=== PATIENT | male | born 1960 | race Hispanic/Latino ===

== ENCOUNTER 2017-06-02 17:49 | Inpatient (IN) | payer OTHER ==
--- NOTE | 2017-06-02 18:05 | Emergency Department Report ---
History of Present Illness - General Stated Complaint: OVERDOSE Time Seen by Provider: 06/02/17 17:59 Source: patient, family, EMS Mode of arrival: Stretcher Limitations: No Limitations - History of Present Illness Initial Comments: Patient is a 56-year-old male brought in by EMS for accidental overdose with Percocets. Patient at this is A&OX3. Patient is status post Narcan by EMS. Patient states she's been having a lot of chest pain recently and was taking his Percocets to relieve his chest pain and abdominal pain. Patient has multiple vascular complications.. Patient states she was not trying to kill himself. Patient's family called EMS due to the decreased responsiveness. Full report given by EMS. Discussed with patient's family as well. Patient denies depression or suicidal ideations or homicidal ideations. Patient's family stated he had some seizure-like activity during his decreased responsiveness. Patient states he only took one Percocet today and is unsure why he went unresponsive. MD Complaint: accidental overdose -: Sudden Intent: want to go to sleep How Overdose Was Discovered: called family/friend, family/friend present, called 911 Context: Accidental Overdose: uncertain what happened Associated Symptoms: abdominal pain Treatments Prior to Arrival: oxygen, narcan - Related Data Home Medications Medication Instructions Recorded Confirmed Last Taken Percocet 10/325 mg 10 mg PO 5XD 06/02/17 06/02/17 Unknown Allergies Allergy/AdvReac Type Severity Reaction Status Date / Time No Known Allergies Allergy Verified 06/02/17 20:53 ED Review of Systems ROS: Stated complaint: OVERDOSE Other details as noted in HPI Constitutional: no symptoms reported, see HPI Eyes: as per HPI ENT: as per HPI Respiratory: no symptoms reported, see HPI Cardiovascular: as per HPI, chest pain Endocrine: no symptoms reported Gastrointestinal: as per HPI, abdominal pain Genitourinary: as per HPI Musculoskeletal: as per HPI Skin: as per HPI Neurological: as per HPI Psychiatric: as per HPI Hematological/Lymphatic: as per HPI ED Past Medical Hx - Past Medical History Hx Hypertension: Yes Hx GERD: Yes Additional medical history: Severe PAD of bilateral legs. Status post vascular surgery for for abdominal bypass to legs. Hernia - Medications Home Medications: Home Medications Medication Instructions Recorded Confirmed Last Taken Type Percocet 10/325 mg 10 mg PO 5XD 11/12/17 11/12/17 Unknown History ED Physical Exam - General General appearance: alert, in no apparent distress - Head Head exam: Present: atraumatic, normocephalic - Eye Eye exam: Present: normal appearance - ENT ENT exam: Present: mucous membranes dry - Neck Neck exam: Present: normal inspection - Respiratory Respiratory exam: Present: normal lung sounds bilaterally. Absent: respiratory distress - Cardiovascular Cardiovascular Exam: Present: regular rate, normal rhythm. Absent: systolic murmur, diastolic murmur, rubs, gallop - GI/Abdominal GI/Abdominal exam: Present: soft, normal bowel sounds, hernia (umbilical hernia noted. Umbilical hernia completely reducible and both supraumbilical hernia are completely reducible. No tenderness noted around any of the hernias), other (midline abdominal scar noted) - Rectal Rectal exam: Present: deferred - Extremities Exam Extremities exam: Present: normal inspection - Back Exam Back exam: Present: normal inspection - Neurological Exam Neurological exam: Present: alert, oriented X3 - Psychiatric Psychiatric exam: Present: normal affect, normal mood - Skin Skin exam: Present: warm, dry, intact, normal color. Absent: rash ED Course Vital Signs 06/02/17 06/02/17 06/02/17 17:50 17:56 18:00 Temperature 98.4 F Pulse Rate 119 H 113 H 105 H Respiratory 18 18 23 Rate Blood Pressure 139/103 144/88 O2 Sat by Pulse 90 92 91 Oximetry 06/02/17 06/02/17 18:30 18:31 Temperature Pulse Rate 107 H Respiratory 18 13 Rate Blood Pressure 139/103 O2 Sat by Pulse 96 93 Oximetry ED Medical Decision Making - Lab Data Result diagrams: 06/02/17 19:54 06/02/17 19:54 - EKG Data -: EKG Interpreted by Wy EKG shows normal: sinus rhythm Rate: tachycardia - EKG Data Interpretation: no acute changes, normal EKG - Medical Decision Making 6-year-old male who came for a possible accidental overdose and decreased level of consciousness. Patient is back to normal level of consciousness after Narcan. Hospitalist consulted for admission. Gen. service consult and also for small bowel obstruction. Hospitalist agreed to admit patient. - Differential Diagnosis od, cp, abd pain. sbo Critical care attestation.: If time is entered above; I have spent that time in minutes in the direct care of this critically ill patient, excluding procedure time. ED Disposition Clinical Impression: Abdominal pain, Chest pain, Accidental overdose, Seizure-like activity, SBO ( small bowel obstruction) Disposition: DC-09 OP ADMIT IP TO THIS HOSP Is pt being admited?: Yes Does the pt Need Aspirin: No Condition: Critical Time of Disposition: 21:38
[2017-06-02 18:59] LABS: Creatine Kinase MB 1.4 ng/mL (0.0-4.0)
[2017-06-02 19:00] LABS: Creatine Kinase 39 units/L (55-170)
[2017-06-02 20:11] LABS: Basophils % (Auto) 0.4 % (0.0-1.8); Eosinophils % (Auto) 1.2 % (0.0-4.3); Hematocrit 48.8 % (35.5-45.6); Mean Corpuscular HGB Conc 33 % (32-34); Mean Corpuscular Hemoglobin 29 pg (28-32); Mean Corpuscular Volume 90 fl (84-94); Platelet Count 393 K/mm3 (140-440); Red Blood Count 5.44 M/mm3 (3.65-5.03); Red Cell Distribution Width 14.7 % (13.2-15.2); White Blood Count 18.9 K/mm3 (4.5-11.0)
--- NOTE | 2017-06-02 20:23 | Cat Scan Report ---
FINAL REPORT PROCEDURE: CT HEAD/BRAIN WO CON TECHNIQUE: Computerized tomography of the head was performed without contrast material. HISTORY: od, ams, poss sz COMPARISON: No prior studies are available for comparison. FINDINGS: Skull and scalp: Normal. Paranasal sinuses: Normal. Ventricles and subarachnoid spaces: Normal. Cerebrum: No evidence of hemorrhage, acute infarction or mass . Cerebellum and brainstem: No evidence of hemorrhage, acute infarction or mass. Vasculature: Normal. Comments: None. IMPRESSION: Normal Examination
[2017-06-02 20:26] LABS: Alanine Aminotransferase 25 units/L (7-56); Albumin/Globulin Ratio 1.2 %; Alkaline Phosphatase 74 units/L (35-129); Anion Gap 20 mmol/L; BUN/Creatinine Ratio 10; Bilirubin,Total < 0.20 mg/dL (0.1-1.2); Blood Urea Nitrogen 9 mg/dL (9-20); Calcium 8.7 mg/dL (8.4-10.2); Carbon Dioxide 26 mmol/L (22-30); Chloride 98.8 mmol/L (98-107); Glucose 90 mg/dL (75-100); Potassium 4.1 mmol/L (3.6-5.0); Sodium 141 mmol/L (137-145); Total Protein 7.4 g/dL (6.3-8.2)
--- NOTE | 2017-06-02 20:39 | Cat Scan Report ---
FINAL REPORT PROCEDURE: CT ABDOMEN PELVIS WO CON TECHNIQUE: Computerized axial tomography of the abdomen and pelvis was performed without intravenous contrast. This study is performed without intravascular contrast material and its sensitivity for abdominal and pelvic pathology, including neoplasms, inflammation, abscess, free fluid, thrombosis, arterial dissection and infarction, is reduced compared with a contrast enhanced study. HISTORY: abd pain COMPARISON: No prior studies are available for comparison. FINDINGS: Liverdemonstrates a cystic lesion measuring 0.8 x 1.0 centimeters located in segment 4. Spleen,. Spleen, and bilateral kidneys demonstrate normal density. There are no renal calculi or hydronephrosis. Aorta is of normal caliber. There is a aorto bi-iliac graft. No free fluid or free air is identified. Gallbladder demonstrates 2 calculi measuring 1.9 x 1.5 centimeters and smaller measuring 1.9 x 1.7 centimeters. Bilateral adrenal glands demonstrate mild degree of nodular thickening. Multiple ventral hernias are identified some of them containing fat, one of them containing a portion of the transverse colonic wall. Also, a complex multi compartmental midline supraumbilical ventral hernia is noted containing multiple loops of small bowel with small bowel obstruction. Afferent small-bowel loops demonstrate moderate degree dilatation and efferent small-bowel loops are decompressed. Moderate amount of residual stool is noted in the colon and rectum. Appendix is normal. IMPRESSION: Multiple ventral hernias are noted. A complex supraumbilical ventral hernia is noted containing multiple loops of small bowel. One of the compartments is causing small bowel obstruction. Bilateral adrenal glands demonstrate mild degree nodular thickening. A small cyst is noted in the left lobe liver which cannot be further evaluated on this noncontrast study.. Cholelithiasis..
[2017-06-02] MEDS: ZOSYN/NS 3.375GM/50ML 3.375 GM/50 ML BAG IV SCH (21:00)
--- NOTE | 2017-06-02 22:45 | History and Physical Report ---
History of Present Illness Date of examination: 06/02/17 History of present illness: 55-year-old man with a history of peripheral vascular disease, hypertension, GERD comes emergency room with complaint of finding him unresponsive, Narcan was given with good results. The son stated that the patient had Seizure-like activity. Patient stated he only took 1 Percocet today. Also complaining that his hernia and periumbilical area is hurting. He describes a sharp pain, constant, intensity5/10, no radiation, Ezekiel identified less than relieving factors. He was hospitalized a month ago for small bowel obstruction. Also complaining of chest pain, in the epigastric area, sharp, intermittent in nature lasting for 4 minutes, no radiation, intensity 4/10. Admits to diaphoresis, palpitation and shortness of breath. He had a stress test one month ago Review Of Systems: Constitutional: no weight loss Ears, eyes, nose, mouth and throat: no nasal congestion, no nasal discharge, no sinus pressure, blurry vision, diplopia Neck: No neck pain or rigidity. Cardiovascular:no orthopnea Respiratory: No cough Gastrointestinal: no hematochezia Genitourinary : no dysuria, frequency , hematuria Musculoskeletal: no muscle ache Integumentary: no rash, no pruritis Neurological: no parathesias, focal weakness Endocrine: no cold or heat intolerance, no polyuria or polydipsia Hematologic/Lymphatic: no easy bruising, no easy bleeding, no gland swelling Allergic/Immunologic: no urticaria, no angioedema. PAST MEDICAL HISTORY:peripheral vascular disease, hypertension, GERD PAST SURGICAL HISTORY: Hernia repair, bypass on legs FAILY HISTORY:Hypertension SOCIAL HISTORY: Denies alcohol, tobacco, drugs Medications and Allergies Allergies Allergy/AdvReac Type Severity Reaction Status Date / Time No Known Allergies Allergy Verified 06/02/17 20:53 Home Medications Medication Instructions Recorded Confirmed Last Taken Type Percocet 10/325 mg 10 mg PO 5XD 06/02/17 06/02/17 Unknown History Dicyclomine [Bentyl] 10 mg PO TID PRN #15 capsule 06/05/17 Unknown Rx Pantoprazole [Protonix] 40 mg PO QDAY #30 tablet 06/05/17 Unknown Rx Active Meds: Active Medications Piperacillin Sod/Tazobactam Sod (Zosyn/Ns 3.375gm/50ml) 3.375 gm in 50 mls @ 100 mls/hr IV Q6H [facility] Last Admin: 06/02/17 21:00 Dose: 100 mls/hr Exam - Physical Exam Narrative exam: Gen. appearance: Patient lying in bed in no acute distress HEENT: Normocephalic/atraumatic, pupils equal round reactive to light, extra alkaline movement intact, no scleral icterus, no JVD or thyromegaly or nodule, neck is supple, mucous membrane moist, no erythema or exudate Heart: S1-S2, regular rate and rhythm Lungs: Clear to auscultation bilateral breathing comfortable Abdomen: Positive bowel sounds, nontender, nondistended, no organomegaly Extremities: No edema, cyanosis, clubbing Neuro:: Oriented 3 , cranial nerves II-12 intact, speech, motor intact Skin: No rash, nodules, warm dry - Constitutional Vitals: Temp Pulse Resp BP Pulse Ox 98.4 F 107 H 13 139/103 93 06/02/17 17:56 06/02/17 18:31 06/02/17 18:31 06/02/17 18:31 06/02/17 18:31 Results - Labs CBC & Chem 7: 06/04/17 04:57 06/04/17 04:57 Labs: Abnormal lab results 06/02/17 06/02/17 06/02/17 Range/Units 18:22 18:22 19:37 WBC (4.5-11.0) K/mm3 RBC (3.65-5.03) M/mm3 Hgb (11.8-15.2) gm/dl Hct (35.5-45.6) % [place] % (Auto) (0.0-7.3) % [place] # (0.0-0.8) K/mm3 Seg Neutrophils % (40.0-70.0) % Seg Neutrophils # (1.8-7.7) K/mm3 Lactic Acid 2.30 H* (0.7-2.0) mmol/L Total Creatine Kinase 39 L (55-170) units/L Salicylates < 0.3 L (2.8-20.0) mg/dL 06/02/17 Range/Units 19:54 WBC 18.9 H (4.5-11.0) K/mm3 RBC 5.44 H (3.65-5.03) M/mm3 Hgb 16.0 H (11.8-15.2) gm/dl Hct 48.8 H (35.5-45.6) % [place] % (Auto) 8.1 H (0.0-7.3) % [place] # 1.5 H (0.0-0.8) K/mm3 Seg Neutrophils % 74.4 H (40.0-70.0) % Seg Neutrophils # 14.1 H (1.8-7.7) K/mm3 Lactic Acid (0.7-2.0) mmol/L Total Creatine Kinase (55-170) units/L Salicylates (2.8-20.0) mg/dL - Imaging and Cardiology CT scan - abdomen: report reviewed CT Scan - head: report reviewed CT scan - pelvis: report reviewed Assessment and Plan Assessment Small bowel obstruction Chest pain Possible seizure SIRS Unintentional overdose Hypertension Peripheral vascular disease GERD Plan Admit to medicine bowel rest, IV fluid, consult surgery The patient refused NG tube Check cardiac enzymes, consult cardiology Ativan as needed for seizure activity, consult neurology Continue appropriate outpatient medication Start emperic Zosyn, follow cultures DVT prophylaxis
[2017-06-02 22:52] LABS: Urine Drugs of Abuse Note Disclamer
[2017-06-02 23:05] LABS: Bacteria,Urine 1+ /HPF (Negative); Bilirubin,Urine NEG (Negative); Blood,Urine NEG (Negative); Ketones,Urine NEG (Negative); Leukocyte Esterase,Urine NEG (Negative); Mucus,Urine FEW /HPF; Nitrite,Urine NEG (Negative); Urobilinogen,Urine < 2.0 mg/dL (<2.0)
[2017-06-02] MEDS ORDERED: ZOFRAN IV PRN (23:26)
[2017-06-02] MEDS ORDERED: TYLENOL PR PRN (23:26)
[2017-06-02] MEDS ORDERED: ATIVAN IV PRN (23:30)
[2017-06-03 00:53] LABS: Creatine Kinase MB 2.6 ng/mL (0.0-4.0)
[2017-06-03] MEDS: DILAUDID IV PRN ×5 (00:57→20:00)
[2017-06-03] MEDS: NACL 0.45% 1000 ML 1,000 ML IV SCH ×2 (01:06→21:24)
[2017-06-03] MEDS: ZOSYN/NS 3.375GM/50ML 3.375 GM/50 ML BAG IV SCH ×4 (03:37→21:24)
[2017-06-03 03:46] LABS: Basophils % (Auto) 0.3 % (0.0-1.8); Eosinophils % (Auto) 0.6 % (0.0-4.3); Hematocrit 45.6 % (35.5-45.6); Hemoglobin 15.2 gm/dl (11.8-15.2); Mean Corpuscular HGB Conc 33 % (32-34); Mean Corpuscular Hemoglobin 30 pg (28-32); Mean Corpuscular Volume 89 fl (84-94); Platelet Count 330 K/mm3 (140-440); Red Blood Count 5.14 M/mm3 (3.65-5.03); Red Cell Distribution Width 14.5 % (13.2-15.2); White Blood Count 19.8 K/mm3 (4.5-11.0)
[2017-06-03 03:58] LABS: Anion Gap 25 mmol/L; BUN/Creatinine Ratio 13; Blood Urea Nitrogen 8 mg/dL (9-20); Calcium 8.7 mg/dL (8.4-10.2); Carbon Dioxide 21 mmol/L (22-30); Chloride 96.8 mmol/L (98-107); Glucose 60 mg/dL (75-100); Potassium 4.6 mmol/L (3.6-5.0); Sodium 138 mmol/L (137-145)
--- NOTE | 2017-06-03 08:13 | Progress Note ---
Assessment and Plan Assessment and plan: --Atypical chest pain; improved Continue current management, cardiology evaluation --Possible small bowel obstruction; nothing by mouth status Surgery evaluation requested, if cleared may start clear liquids and advance as tolerated --History of possible seizure episode; no new episodes since admission Seizure precautions, neurology evaluation and recommendations, EEG --SIRS; follow cultures, empiric antibiotics and supportive care --Urinary tract infection by UA; continue Zosyn, follow cultures --Lactic acidosis; probably secondary to UTI closely monitor --Elevated d-dimer /chest pain; negative for PE --Peripheral vascular disease --gastro esophageal reflux disease; Protonix --Chronic pain syndrome; patient needs to see pain management --Hypertension; well controlled --DVT prophylaxis; Lovenox Closely monitor the patient and adjust management as needed Consults and recommendations noted she did Plan of care discussed with the patient,his at the bedside as well as his nurse. History Interval history: Since seen and examined medical records reviewed Since slightly better, asking for food Awaiting surgical evaluation Denies any chest pain or shortness of breath Vital signs reviewed Hospitalist Physical - Constitutional Vitals: Temp Pulse Resp BP Pulse Ox 98.1 F 91 H 22 137/77 93 06/03/17 00:59 06/03/17 00:59 06/03/17 00:59 06/03/17 00:59 06/03/17 00:59 General appearance: Present: no acute distress, well-nourished, obese - EENT Eyes: Present: PERRL, EOM intact - Neck Neck: Present: supple, normal ROM - Respiratory Respiratory effort: normal Respiratory: bilateral: diminished, negative: rales, rhonchi, wheezing - Cardiovascular Rhythm: regular Heart Sounds: Present: S1 & S2 - Extremities Extremities: no ischemia, No edema - Abdominal General gastrointestinal: soft, non-tender, non-distended, normal bowel sounds, other (umbilical hernia, old surgical scar intact) - Integumentary Integumentary: Present: clear, warm - Psychiatric Psychiatric: appropriate mood/affect, cooperative - Neurologic Neurologic: CNII-XII intact, moves all extremities Results - Labs CBC & Chem 7: 06/03/17 03:12 06/03/17 03:12 Labs: Laboratory Last Values WBC 19.8 K/mm3 (4.5-11.0) H 06/03/17 03:12 RBC 5.14 M/mm3 (3.65-5.03) H 06/03/17 03:12 Hgb 15.2 gm/dl (11.8-15.2) 06/03/17 03:12 Hct 45.6 % (35.5-45.6) 06/03/17 03:12 MCV 89 fl (84-94) 06/03/17 03:12 MCH 30 pg (28-32) 06/03/17 03:12 MCHC 33 % (32-34) 06/03/17 03:12 RDW 14.5 % (13.2-15.2) 06/03/17 03:12 Plt Count 330 K/mm3 (140-440) 06/03/17 03:12 Lymph % (Auto) 15.0 % (13.4-35.0) 06/03/17 03:12 [place] % (Auto) 6.4 % (0.0-7.3) 06/03/17 03:12 Eos % (Auto) 0.6 % (0.0-4.3) 06/03/17 03:12 Baso % (Auto) 0.3 % (0.0-1.8) 06/03/17 03:12 Lymph # 3.0 K/mm3 (1.2-5.4) 06/03/17 03:12 [place] # 1.3 K/mm3 (0.0-0.8) H 06/03/17 03:12 Eos # 0.1 K/mm3 (0.0-0.4) 06/03/17 03:12 Baso # 0.1 K/mm3 (0.0-0.1) 06/03/17 03:12 Seg Neutrophils % 77.7 % (40.0-70.0) H 06/03/17 03:12 Seg Neutrophils # 15.4 K/mm3 (1.8-7.7) H 06/03/17 03:12 D-Dimer 455.38 ng/mlDDU (0-234) H 06/03/17 07:07 Sodium 138 mmol/L (137-145) 06/03/17 03:12 Potassium 4.6 mmol/L (3.6-5.0) 06/03/17 03:12 Chloride 96.8 mmol/L (98-107) L 06/03/17 03:12 Carbon Dioxide 21 mmol/L (22-30) L 06/03/17 03:12 Anion Gap 25 mmol/L 06/03/17 03:12 BUN 8 mg/dL (9-20) L 06/03/17 03:12 Creatinine 0.6 mg/dL (0.8-1.5) L 06/03/17 03:12 Estimated GFR > 60 ml/min 06/03/17 03:12 BUN/Creatinine Ratio 13 % 06/03/17 03:12 Glucose 60 mg/dL (75-100) L 06/03/17 03:12 Lactic Acid 2.30 mmol/L (0.7-2.0) H* 06/02/17 19:37 Calcium 8.7 mg/dL (8.4-10.2) 06/03/17 03:12 Total Bilirubin < 0.20 mg/dL (0.1-1.2) 06/02/17 19:54 AST 18 units/L (5-40) 06/02/17 19:54 ALT 25 units/L (7-56) 06/02/17 19:54 Alkaline Phosphatase 74 units/L (35-129) 06/02/17 19:54 Total Creatine Kinase 365 units/L (55-170) H 06/02/17 23:54 CK-MB (CK-2) 2.6 ng/mL (0.0-4.0) 06/02/17 23:54 CK-MB (CK-2) Rel Index 0.7 (0-4) 06/02/17 23:54 Troponin T < 0.010 ng/mL (0.00-0.029) 06/03/17 04:54 Total Protein 7.4 g/dL (6.3-8.2) 06/02/17 19:54 Albumin 4.0 g/dL (3.9-5) 06/02/17 19:54 Albumin/Globulin Ratio 1.2 % 06/02/17 19:54 Urine Color Yellow (Yellow) 06/02/17 22:47 Urine Turbidity Clear (Clear) 06/02/17 22:47 Urine pH 5.0 (5.0-7.0) 06/02/17 22:47 Ur Specific [place] 1.016 (1.003-1.030) 06/02/17 22:47 Urine Protein 30 mg/dl mg/dL (Negative) 06/02/17 22:47 Urine Glucose (UA) Neg mg/dL (Negative) 06/02/17 22:47 Urine Ketones Neg mg/dL (Negative) 06/02/17 22:47 Urine Blood Neg (Negative) 06/02/17 22:47 Urine Nitrite Neg (Negative) 06/02/17 22:47 Urine Bilirubin Neg (Negative) 06/02/17 22:47 Urine Urobilinogen < 2.0 mg/dL (<2.0) 06/02/17 22:47 Ur Leukocyte Esterase Neg (Negative) 06/02/17 22:47 Urine WBC (Auto) 2.0 /HPF (0.0-6.0) 06/02/17 22:47 Urine RBC (Auto) 3.0 /HPF (0.0-6.0) 06/02/17 22:47 Urine Bacteria (Auto) 1+ /HPF (Negative) 06/02/17 22:47 Urine Mucus Few /HPF 06/02/17 22:47 Salicylates < 0.3 mg/dL (2.8-20.0) L 06/02/17 18:22 Urine Opiates Screen Presumptive negative 06/02/17 22:47 Urine Methadone Screen Presumptive negative 06/02/17 22:47 Acetaminophen < 15.0 ug/mL (10.0-30.0) 06/02/17 18:22 Ur Barbiturates Screen Presumptive negative 06/02/17 22:47 Ur Phencyclidine Scrn Presumptive negative 06/02/17 22:47 Ur Amphetamines Screen Presumptive negative 06/02/17 22:47 U Benzodiazepines Scrn Presumptive negative 06/02/17 22:47 Urine Cocaine Screen Presumptive negative 06/02/17 22:47 U Marijuana (THC) Screen Presumptive negative 06/02/17 22:47 Drugs of Abuse Note Disclamer 06/02/17 22:47 Plasma/Serum Alcohol < 0.01 gm% (0-0.07) 06/02/17 18:22
[2017-06-03] MEDS: LOVENOX SUB-Q SCH (09:02)
[2017-06-03] MEDS ORDERED: LOVENOX SUB-Q SCH (10:00)
[2017-06-03] MEDS ORDERED: Fluarix Quad 2017-2018(36 MOS+ IM ONE (12:00)
--- NOTE | 2017-06-03 12:52 | Progress Note ---
Assessment and Plan Called to see pt to r/o sbo. History of Present Illness Date of examination: 06/02/17 History of present illness: 55-year-old man with a history of peripheral vascular disease, hypertension, GERD comes emergency room with complaint of finding him unresponsive, Narcan was given with good results. The size state that the patient had Seizure-like activity. Patient stated he only took 1 Percocet today. Also complaining that his hernia and periumbilical area is hurting. He describes a sharp pain, constant, intensity5/10, no radiation, Ezekiel identified less than relieving factors. He was hospitalized a month ago for small bowel obstruction. Also complaining of chest pain, in the epigastric area, sharp, intermittent in nature lasting for 4 minutes, no radiation, intensity 4/10. Admits to diaphoresis, palpitation and shortness of breath. He had a stress test one month ago Review Of Systems: Constitutional: no weight loss Ears, eyes, nose, mouth and throat: no nasal congestion, no nasal discharge, no sinus pressure, blurry vision, diplopia Neck: No neck pain or rigidity. Cardiovascular:no orthopnea Respiratory: No cough Gastrointestinal: no hematochezia Genitourinary : no dysuria, frequency , hematuria Musculoskeletal: no muscle ache Integumentary: no rash, no pruritis Neurological: no parathesias, focal weakness Endocrine: no cold or heat intolerance, no polyuria or polydipsia Hematologic/Lymphatic: no easy bruising, no easy bleeding, no gland swelling Allergic/Immunologic: no urticaria, no angioedema. PAST MEDICAL HISTORY:peripheral vascular disease, hypertension, GERD PAST SURGICAL HISTORY: Hernia repair, bypass on legs FAILY HISTORY:Hypertension SOCIAL HISTORY: Denies alcohol, tobacco, drugs Pt feeling well. Awake, alert, no complaints. hungry. +flatus and BM Abd - obese, soft. reducible, non tender ventral hernia. + BS CT reviewed - no evidence of sbo clinically stable rec: abd binder may begin non carbonated cl liq. advance diet in am as vinny will follow prn Selected Entries 06/03/17 06/03/17 00:59 06:06 Temperature 98.1 F Pulse Rate 91 H Respiratory 18 Rate Blood Pressure 137/77 Laboratory Tests 06/03/17 06/03/17 03:12 03:12 WBC 19.8 H Hgb 15.2 Hct 45.6 Sodium 138 Potassium 4.6 Chloride 96.8 L Carbon Dioxide 21 L BUN 8 L Creatinine 0.6 L Objective Vital Signs - 12hr 06/03/17 06/03/17 06/03/17 00:59 06:06 09:51 Temperature 98.1 F Pulse Rate 91 H Respiratory 22 18 Rate Blood Pressure 137/77 O2 Sat by Pulse 93 96 Oximetry - Labs 06/03/17 03:12 06/03/17 03:12 Diabetes panel 06/03/17 Range/Units 03:12 Sodium 138 (137-145) mmol/L Potassium 4.6 (3.6-5.0) mmol/L Chloride 96.8 L (98-107) mmol/L Carbon Dioxide 21 L (22-30) mmol/L BUN 8 L (9-20) mg/dL Creatinine 0.6 L (0.8-1.5) mg/dL Glucose 60 L (75-100) mg/dL Calcium 8.7 (8.4-10.2) mg/dL Calcium panel 06/03/17 Range/Units 03:12 Calcium 8.7 (8.4-10.2) mg/dL Pituitary panel 06/03/17 Range/Units 03:12 Sodium 138 (137-145) mmol/L Potassium 4.6 (3.6-5.0) mmol/L Chloride 96.8 L (98-107) mmol/L Carbon Dioxide 21 L (22-30) mmol/L BUN 8 L (9-20) mg/dL Creatinine 0.6 L (0.8-1.5) mg/dL Glucose 60 L (75-100) mg/dL Calcium 8.7 (8.4-10.2) mg/dL Adrenal panel 06/03/17 Range/Units 03:12 Sodium 138 (137-145) mmol/L Potassium 4.6 (3.6-5.0) mmol/L Chloride 96.8 L (98-107) mmol/L Carbon Dioxide 21 L (22-30) mmol/L BUN 8 L (9-20) mg/dL Creatinine 0.6 L (0.8-1.5) mg/dL Glucose 60 L (75-100) mg/dL Calcium 8.7 (8.4-10.2) mg/dL
--- NOTE | 2017-06-03 13:09 | Cat Scan Report ---
CT angiography of the chest with 3-D reconstructed images. History: Chest pain, elevated d-dimer. Findings: The concentration of the contrast bolus is suboptimal, but there is no evidence of pulmonary emboli. The lungs are clear. No pleural fluid is seen. There are mild emphysematous changes in the upper lobes. The mediastinum and hilar regions are unremarkable. An isolated subcentimeter hypodensity is seen in the left lobe of the liver. Multiple gallstones are noted. A midline ventral hernia is noted, incompletely imaged. Impression: 1. No evidence of pulmonary emboli with above-noted technical limitations. 2. Mild emphysematous changes. 3. Cholelithiasis. 4. Midline ventral hernia, incompletely imaged. 5. Subcentimeter nonspecific hepatic hypodensity . Evidence of hepatic steatosis is also noted.
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
[2017-06-03] MEDS ORDERED: DILAUDID IV PRN (15:00)
--- NOTE | 2017-06-03 19:12 | Consultation ---
History of Present Illness Consult date: 06/03/17 Consult reason: chest pain History of present illness: The patient is a 56-year-old man who was admitted to the hospital after he was found unresponsive at home. It is reported that the swiss type screw machine operator gave him 2 mg of Narcan, following which he regained complete consciousness and was alert and oriented. The patient is on chronic Percocet treatment, but denied intentional overdose. On presentation to the hospital, during review of systems he also reported chest pain. Cardiac consultation was requested for chest pain evaluation. Patient's chest pain is poorly characterized, nonexertional and has no associated symptoms. He states he has a history of peripheral vascular disease and previous aortofemoral bypass. He reports that he has had extensive ischemic cardiac workup including a cardiac catheterization done a year ago at [facility], which he states was negative for significant coronary disease. The records are not available for review of his coronary findings. ECG is normal sinus rhythm, normal ECG. Past History Past Medical History: PVD Medications and Allergies Allergies Allergy/AdvReac Type Severity Reaction Status Date / Time No Known Allergies Allergy Verified 06/02/17 20:53 Home Medications Medication Instructions Recorded Confirmed Last Taken Type Percocet 10/325 mg 10 mg PO 5XD 06/02/17 06/02/17 Unknown History Active Meds: Active Medications Acetaminophen (Tylenol) 650 mg [place] Q4H PRN PRN Reason: Pain MILD(1-3)/Fever >100.5/NELSON Enoxaparin Sodium (Lovenox) 40 mg SUB-Q QDAY@1000 [facility]ENCION Last Admin: 06/03/17 09:02 Dose: 40 mg Hydromorphone HCl (Dilaudid) 0.5 mg IV Q6H PRN PRN Reason: Pain , Severe (7-10) Piperacillin Sod/Tazobactam Sod (Zosyn/Ns 3.375gm/50ml) 3.375 gm in 50 mls @ 100 mls/hr IV Q6H [facility]ENCION Last Admin: 06/03/17 15:39 Dose: 100 mls/hr Sodium Chloride (Nacl 0.45% 1000 Ml) 1,000 mls @ 75 mls/hr IV DIRECT [facility]ENCION Last Admin: 06/03/17 01:06 Dose: 75 mls/hr Lorazepam (Ativan) 1 mg IV Q4H PRN PRN Reason: Seizures Ondansetron HCl (Zofran) 4 mg IV Q4H PRN PRN Reason: N/V unrelieved by Reglan Pantoprazole (Protonix) 40 mg PO QDAY [facility] Review of Systems Cardiovascular: chest pain, shortness of breath, no orthopnea, no palpitations, no rapid/irregular heart beat, no edema, no syncope, no lightheadedness Physical Examination Vital Signs Pulse Resp Pulse Ox 119 H 18 90 06/02/17 17:50 06/02/17 17:50 06/02/17 17:50 General appearance: no acute distress, obese HEENT: Positive: PERRL Neck: Positive: neck supple Cardiac: Positive: Reg Rate and Rhythm Lungs: Positive: Decreased Breath Sounds Neuro: Positive: Grossly Intact Abdomen: Positive: Soft Male genitourinary: Positive: deferred Skin: Positive: Clear Extremities: Absent: edema Results 06/03/17 03:12 06/03/17 03:12 Cardiac Enzymes 06/02/17 Range/Units 23:54 CK-MB (CK-2) 2.6 (0.0-4.0) ng/mL CBC 06/03/17 Range/Units 03:12 WBC 19.8 H (4.5-11.0) K/mm3 RBC 5.14 H (3.65-5.03) M/mm3 Hgb 15.2 (11.8-15.2) gm/dl Hct 45.6 (35.5-45.6) % Plt Count 330 (140-440) K/mm3 Lymph # 3.0 (1.2-5.4) K/mm3 [place] # 1.3 H (0.0-0.8) K/mm3 Eos # 0.1 (0.0-0.4) K/mm3 Baso # 0.1 (0.0-0.1) K/mm3 Comprehensive Metabolic Panel 06/03/17 Range/Units 03:12 Sodium 138 (137-145) mmol/L Potassium 4.6 (3.6-5.0) mmol/L Chloride 96.8 L (98-107) mmol/L Carbon Dioxide 21 L (22-30) mmol/L BUN 8 L (9-20) mg/dL Creatinine 0.6 L (0.8-1.5) mg/dL Glucose 60 L (75-100) mg/dL Calcium 8.7 (8.4-10.2) mg/dL EKG interpretations - Telemetry EKG Rhythm: Sinus Rhythm Assessment and Plan - Patient Problems (1) Chest pain Current Visit: Yes Status: Acute Qualifiers: Chest pain type: C Ischemic chest pain type: I Plan to address problem: The patient's chest pain is atypical, ECG is normal, and he reports prior negative extensive ischemic cardiac workup. We will request his cardiac catheterization results from [facility] for further review. Otherwise no immediate further ischemic workup is indicated for atypical chest pain.
[2017-06-04] MEDS: DILAUDID IV PRN ×4 (02:02→20:53)
[2017-06-04] MEDS: ZOSYN/NS 3.375GM/50ML 3.375 GM/50 ML BAG IV SCH ×4 (02:03→20:52)
--- NOTE | 2017-06-04 03:11 | Consultation ---
REASON FOR CONSULTATION: Rule out small-bowel obstruction. HISTORY OF PRESENT ILLNESS: The patient is a 56-year-old gentleman who presented to the Emergency Room, who was sleeping, who was brought into the Emergency Room after being found unresponsive. Narcan was given with good results. His workup, the patient underwent a CT of the abdomen, which was read as a possible partial small-bowel obstruction secondary to ventral hernia thus, the reason for my consultation. For other past medical and surgical history, please review the chart. PHYSICAL EXAMINATION: GENERAL: Examination this morning reveals the patient to be awake, alert, cooperative with no complaints. He is hungry and wants to eat. He passed flatus and has had a bowel movement. VITAL SIGNS: Stable, including a temperature of 98.1, blood pressure 137/77, pulse 91, respirations of 18. ABDOMEN: Examination of the abdomen reveals it to be obese, but soft and nontender. Long midline scar is noted presumably from previous vascular surgery. There is a ventral hernia noted, but this hernia is easily reducible and nontender. Bowel sounds are present. IMAGING STUDIES: A CT has also been reviewed, which again shows no real evidence of small-bowel obstruction. ASSESSMENT AND PLAN: 1. At this time is that of a 56-year-old gentleman with asymptomatic incisional hernia with no signs of obstruction at present. I would recommend an abdominal binder. The patient states he has an abdominal binder at home with left it at home. 2. Maybe be in non-carbonated clear liquid diet this morning and advance as tolerated in the morning. We will follow as needed. Thank you very much for consultation. JOB# [id number] FP/NTS
[2017-06-04 05:29] LABS: Basophils % (Auto) 0.8 % (0.0-1.8); Eosinophils % (Auto) 1.1 % (0.0-4.3); Hemoglobin 15.2 gm/dl (11.8-15.2); Mean Corpuscular HGB Conc 33 % (32-34); Mean Corpuscular Hemoglobin 29 pg (28-32); Mean Corpuscular Volume 89 fl (84-94); Platelet Count 340 K/mm3 (140-440); Red Blood Count 5.18 M/mm3 (3.65-5.03); Red Cell Distribution Width 14.4 % (13.2-15.2); White Blood Count 18.2 K/mm3 (4.5-11.0)
[2017-06-04 05:48] LABS: Anion Gap 18 mmol/L; BUN/Creatinine Ratio 8; Blood Urea Nitrogen 5 mg/dL (9-20); Calcium 8.6 mg/dL (8.4-10.2); Carbon Dioxide 24 mmol/L (22-30); Chloride 98.1 mmol/L (98-107); Glucose 100 mg/dL (75-100); Potassium 3.6 mmol/L (3.6-5.0); Sodium 136 mmol/L (137-145)
[2017-06-04] MEDS: PROTONIX PO SCH (09:05)
[2017-06-04] MEDS: LOVENOX SUB-Q SCH (09:05)
--- NOTE | 2017-06-04 12:04 | Progress Note ---
Subjective Date of service: 06/04/17 Principal diagnosis: altered awareness episode Interval history: NEUROLOGY PROGRESS NOTE: No repeat episodes of altered awareness. EEG today shows: 8 - 10 Hz background, no differentiated states of awareness, no focal abn, no epileptiform activity. IMP: Normal awake EEG. RECC: 1. Neuro work up complete. See no need for further neuro tests. 2. Call as needed. Unruly Mercer MD Objective - Vital Sign Vital Signs - 12hr 06/04/17 06/04/17 02:02 08:54 Respiratory 20 20 Rate - Laboratory Findings CBC and BMP: 06/04/17 04:57 06/04/17 04:57 Abnormal Lab Findings: Abnormal Labs 06/02/17 06/03/17 06/03/17 23:54 03:12 03:12 WBC 19.8 H RBC 5.14 H Hct [place] # 1.3 H Seg Neutrophils % 77.7 H Seg Neutrophils # 15.4 H D-Dimer Sodium Chloride 96.8 L Carbon Dioxide 21 L BUN 8 L Creatinine 0.6 L Glucose 60 L Total Creatine Kinase 365 H 06/03/17 06/04/17 06/04/17 07:07 04:57 04:57 WBC 18.2 H RBC 5.18 H Hct 46.0 H [place] # 1.2 H Seg Neutrophils % 74.4 H Seg Neutrophils # 13.6 H D-Dimer 455.38 H Sodium 136 L Chloride Carbon Dioxide BUN 5 L Creatinine 0.6 L Glucose Total Creatine Kinase
[2017-06-04] MEDS: NACL 0.45% 1000 ML 1,000 ML IV SCH (12:09)
--- NOTE | 2017-06-04 12:23 | Progress Note ---
Assessment and Plan - Patient Problems (1) Chest pain Current Visit: Yes Status: Acute Plan to address problem: chest pain is atypical ECG is normal pt reports prior negative extensive ischemic cardiac workup. We will request his cardiac catheterization results from [facility] for further review. Otherwise, conservative cardiac management. Subjective Date of service: 06/04/17 Principal diagnosis: altered awareness episode Interval history: Patient complains of abdominal pain. Objective Vital Signs Pulse Resp 06/04/17 08:54 20 06/04/17 02:02 20 06/03/17 23:00 100 H 06/03/17 20:00 20 06/03/17 15:00 86 06/03/17 13:52 18 06/03/17 13:45 18 - Physical Examination General: No Apparent Distress HEENT: Positive: PERRL Cardiac: Positive: Reg Rate and Rhythm Neuro: Positive: Grossly Intact Extremities: Absent: edema - Labs and Meds CBC 06/04/17 Range/Units 04:57 WBC 18.2 H (4.5-11.0) K/mm3 RBC 5.18 H (3.65-5.03) M/mm3 Hgb 15.2 (11.8-15.2) gm/dl Hct 46.0 H (35.5-45.6) % Plt Count 340 (140-440) K/mm3 Lymph # 3.1 (1.2-5.4) K/mm3 [place] # 1.2 H (0.0-0.8) K/mm3 Eos # 0.2 (0.0-0.4) K/mm3 Baso # 0.1 (0.0-0.1) K/mm3 Comprehensive Metabolic Panel 06/04/17 Range/Units 04:57 Sodium 136 L (137-145) mmol/L Potassium 3.6 D (3.6-5.0) mmol/L Chloride 98.1 (98-107) mmol/L Carbon Dioxide 24 (22-30) mmol/L BUN 5 L (9-20) mg/dL Creatinine 0.6 L (0.8-1.5) mg/dL Glucose 100 (75-100) mg/dL Calcium 8.6 (8.4-10.2) mg/dL
[2017-06-05] MEDS: NACL 0.45% 1000 ML 1,000 ML IV SCH (02:31)
[2017-06-05] MEDS: ZOSYN/NS 3.375GM/50ML 3.375 GM/50 ML BAG IV SCH ×2 (02:31→08:35)
[2017-06-05] MEDS: DILAUDID IV PRN ×2 (02:32→08:35)
--- NOTE | 2017-06-05 10:37 | Progress Note ---
Assessment and Plan Alteration of mental status -resolved Abdominal pain Leukocytosis Chest pain, atypical ECG is normal pt reports prior negative cardiac cath done at [facility] a year ago. CTA negative for PE Records from [facility] is pending. Conservative cardiac management. Subjective Date of service: 06/05/17 Principal diagnosis: altered awareness episode Interval history: No interval changes. Objective Vital Signs Temp Pulse Resp Resp BP Pulse Ox 06/05/17 08:36 79 06/05/17 08:31 95 06/05/17 04:06 97.1 F L 86 20 194/80 99 06/05/17 03:24 94 H 06/05/17 02:32 20 06/05/17 00:38 98.4 F 94 H 20 155/86 93 06/04/17 20:53 20 06/04/17 20:10 98.3 F 89 20 160/76 93 06/04/17 17:19 98.6 F 97 H 20 144/75 95 06/04/17 16:04 20 06/04/17 11:36 98.7 F 89 20 164/95 96 06/04/17 10:40 20 - Physical Examination General: No Apparent Distress HEENT: Positive: PERRL Cardiac: Positive: Reg Rate and Rhythm Lungs: Positive: Decreased Breath Sounds Neuro: Positive: Grossly Intact
[2017-06-05] MEDS: PROTONIX PO SCH (11:30)
[2017-06-05] MEDS: LOVENOX SUB-Q SCH (11:30)
[2017-06-05 12:31] VITALS: BP 99/63
--- NOTE | 2017-06-05 13:29 | Discharge Summary ---
Providers - Providers Date of Admission: 06/02/17 22:44 Date of discharge: 06/05/17 Attending physician: CHUCK OKEEFE 06/02/17 23:09 Consult to Physician [CONS] Routine Consulting Provider: TARAH GARIBAY Reason For Exam: sbo Place consult to:: Dr. Garibay Notified:: Answering Service Phone number called:: [phone] Was contact made?: Yes If yes, spoke with:: Dr. Garibay Time called:: 21:31 Comment:: Dr. Hargrove ( dr) spoke with Dr. Garibay 06/02/17 23:31 Consult to Physician [CONS] Routine Consulting Provider: BENEDICTO CORTEZ Reason For Exam: ?sz Notified:: attendance secretary pl call 06/02/17 23:34 Consult to Physician [CONS] Routine Consulting Provider: ALEN CORDOBA Reason For Exam: cp Notified:: attendance secretary pl call Primary care physician: MARINE DIESEL TECHNICIAN Hospitalization Reason for admission: altered level of consciousness/seizure like activity Condition: Stable Pertinent studies: CT head; normal study CTA chest; negative for PE CT abdomen and pelvis; multiple ventral hernias Hepato-steatosis EEG; normal study Hospital course: 55-year-old morbidly obese male patient with significant history of peripheral vascular disease hypertension GERD was admitted through emergency room with unresponsiveness and seizure like activity patient was initially evaluated admitted to the hospital symptomatically managed Patient also has abdominal pain, workup questionable small bowel obstruction, as well as chest pain Symptomatically managed evaluated by cardiology; patient's symptoms significantly improved, patient had a negative heart And [facility] one year ago, no further intervention cardiac-jc Evaluated by neurology for seizure; placed on seizure precautions, no antiseizure medications required; EEG within normal limits, neurology cleared, advised not to drive until cleared by primary care physician, Patient had chronic pain syndrome, advised to see pain management as outpatient for his pain needs Patient also has mild leukocytosis; urine consistent with UTI; received Zosyn for 4 days during the hospital stay Symptoms improved, Today he is comfortable with no new complaints, Vital signs are stable Physical examination prior to discharge is unremarkable Clear by all the specialists surgery, cardiology, neurology and follow up with them as outpatient as needed Patient is hemodynamically and clinically stable at discharge Discharge diagnosis; --Atypical noncardiac chest pain; possible costochondritis Negative Heart cath a year ago at [facility] --Possible small bowel obstruction; surgery has evaluated, no evidence of small bowel obstruction --History of possible seizure episode; workup negative, did not drive till cleared by PMD --SIRS; patient has no fever --Sepsis secondary to Urinary tract infection received 4 days of Zosyn --Lactic acidosis; probably secondary to UTI , improved --Elevated d-dimer; negative for PE --Peripheral vascular disease --gastro esophageal reflux disease; Protonix --Chronic pain syndrome; outpatient pain management --Hypertension; well controlled Disposition: DC- TO HOME OR SELFCARE Time spent for discharge: 33 min Core Measure Documentation - Palliative Care Palliative Care/ Comfort Measures: Not Applicable - Core Measures Any of the following diagnoses?: none Exam - Constitutional Vitals: Temp Pulse Resp BP Pulse Ox 98.7 F 79 20 99/63 97 06/05/17 12:30 06/05/17 08:36 06/05/17 12:30 06/05/17 12:30 06/05/17 12:30 General appearance: Present: no acute distress, well-nourished, obese - EENT Eyes: Present: PERRL, EOM intact - Neck Neck: Present: supple, normal ROM - Respiratory Respiratory effort: normal Respiratory: bilateral: diminished, negative: rales, rhonchi, wheezing - Cardiovascular Rhythm: regular Heart Sounds: Present: S1 & S2 - Extremities Extremities: no ischemia, No edema Peripheral Pulses: within normal limits - Abdominal General gastrointestinal: Present: soft, non-tender, non-distended, normal bowel sounds - Integumentary Integumentary: Present: clear, warm - Musculoskeletal Musculoskeletal: strength equal bilaterally - Psychiatric Psychiatric: appropriate mood/affect, cooperative - Neurologic Neurologic: CNII-XII intact, moves all extremities Plan Activity: no driving until cleared by PCP, other (seizure precautions) Diet: low salt Additional Instructions: Exercise as tolerated and weight reduction. If you have new episodes of seizures need to see the neurologist for further evaluation Follow up with: PRIMARY MD TAURUS [Primary Care Provider] - 3-5 Days TARAH GRAIBAY MD [Staff Physician] - 7 Days IGOR SCHMITT MD [Staff Physician] - 7 Days Forms: Discharge Signature Page Prescriptions: Dicyclomine [Bentyl] 10 mg PO TID PRN #15 capsule PRN Reason: Pain Pantoprazole [Protonix] 40 mg PO QDAY #30 tablet
--- NOTE | 2017-06-05 14:07 | Consultation ---
History of Present Illness Consult date: 06/05/17 History of present illness: patient seen and re-assessed post overdose- suspect percocet multidose the only medication that is responsive... he was traeting pain in the area of his old surgery with complications of hernia advise in future no percocet might consider another anaalgesic ie lomotil and ultram will follow up in office post discharge EEG did not show seizure activity spoke to at the bedside Past History Past Medical History: PVD Medications and Allergies Allergies Allergy/AdvReac Type Severity Reaction Status Date / Time No Known Allergies Allergy Verified 06/02/17 20:53 Home Medications Medication Instructions Recorded Confirmed Last Taken Type Percocet 10/325 mg 10 mg PO 5XD 06/02/17 06/02/17 Unknown History Dicyclomine [Bentyl] 10 mg PO TID PRN #15 capsule 06/05/17 Unknown Rx Pantoprazole [Protonix] 40 mg PO QDAY #30 tablet 06/05/17 Unknown Rx Active Meds: Active Medications Acetaminophen (Tylenol) 650 mg MA Q4H PRN PRN Reason: Pain MILD(1-3)/Fever >100.5/NELSON Enoxaparin Sodium (Lovenox) 40 mg SUB-Q QDAY@1000 [facility]ENCION Last Admin: 06/05/17 11:30 Dose: 40 mg Hydromorphone HCl (Dilaudid) 0.5 mg IV Q6H PRN PRN Reason: Pain , Severe (7-10) Last Admin: 06/05/17 08:35 Dose: 0.5 mg Sodium Chloride (Nacl 0.45% 1000 Ml) 1,000 mls @ 75 mls/hr IV [facility] Last Admin: 06/05/17 02:31 Dose: 75 mls/hr Lorazepam (Ativan) 1 mg IV Q4H PRN PRN Reason: Seizures Ondansetron HCl (Zofran) 4 mg IV Q4H PRN PRN Reason: N/V unrelieved by Reglan Pantoprazole (Protonix) 40 mg PO [facility]DAY [facility] Last Admin: 06/05/17 11:30 Dose: 40 mg Physical Examination - Vital Signs Vital Signs: Vital Signs Pulse Resp Pulse Ox 119 H 18 90 06/02/17 17:50 06/02/17 17:50 06/02/17 17:50 Results - Laboratory Findings CBC and BMP: 11/14/17 04:57 06/04/17 04:57 Abnormal Lab Findings: Abnormal Labs 06/02/17 06/03/17 06/03/17 23:54 03:12 03:12 WBC 19.8 H RBC 5.14 H Hct [place] # 1.3 H Seg Neutrophils % 77.7 H Seg Neutrophils # 15.4 H D-Dimer Sodium Chloride 96.8 L Carbon Dioxide 21 L BUN 8 L Creatinine 0.6 L Glucose 60 L Total Creatine Kinase 365 H 06/03/17 06/04/17 06/04/17 07:07 04:57 04:57 WBC 18.2 H RBC 5.18 H Hct 46.0 H [place] # 1.2 H Seg Neutrophils % 74.4 H Seg Neutrophils # 13.6 H D-Dimer 455.38 H Sodium 136 L Chloride Carbon Dioxide BUN 5 L Creatinine 0.6 L Glucose Total Creatine Kinase
--- NOTE | 2017-06-06 17:50 | Progress Note ---
Assessment and Plan Assessment and plan: --Atypical chest pain; improved Probably noncardiac, cardiology following --Possible small bowel obstruction; surgery has evaluated the patient No small bowel obstruction, clear liquids advance the diet as tolerated --History of possible seizure episode; no new episodes of seizure Seizure precautions, EEG, no need for antiepileptic medications, neurology following --SIRS; patient has no fever --Sepsis secondary to Urinary tract infection by UA; on Zosyn ,cultures negative to date --Lactic acidosis; probably secondary to UTI --Elevated d-dimer /chest pain; negative for PE --Peripheral vascular disease --gastro esophageal reflux disease; Protonix --Chronic pain syndrome; patient needs to see outpatient pain management --Hypertension; well controlled --DVT prophylaxis; Lovenox Closely monitor the patient and adjust management as needed Plan of care discussed with the patient,his at the bedside as well as his nurse. History Interval history: Patient seen and examined in his room medical records reviewed Patient feels slightly better no new episodes of seizures Complaints of back pain Vital signs reviewed Hospitalist Physical - Constitutional Vitals: Temp Pulse Resp BP Pulse Ox 98.7 F 79 20 99/63 97 06/05/17 12:30 06/05/17 08:36 06/05/17 12:30 06/05/17 12:30 06/05/17 12:30 General appearance: Present: no acute distress, well-nourished, obese - EENT Eyes: Present: PERRL, EOM intact - Neck Neck: Present: supple, normal ROM - Respiratory Respiratory effort: normal Respiratory: bilateral: diminished, negative: rales, rhonchi, wheezing - Cardiovascular Rhythm: regular Heart Sounds: Present: S1 & S2 - Extremities Extremities: no ischemia, No edema - Abdominal General gastrointestinal: soft, non-tender, non-distended, normal bowel sounds - Integumentary Integumentary: Present: clear, warm - Psychiatric Psychiatric: appropriate mood/affect, cooperative - Neurologic Neurologic: CNII-XII intact, moves all extremities Results - Labs CBC & Chem 7: 06/04/17 04:57 06/04/17 04:57 Labs: Laboratory Last Values WBC 18.2 K/mm3 (4.5-11.0) H 06/04/17 04:57 RBC 5.18 M/mm3 (3.65-5.03) H 06/04/17 04:57 Hgb 15.2 gm/dl (11.8-15.2) 06/04/17 04:57 Hct 46.0 % (35.5-45.6) H 06/04/17 04:57 MCV 89 fl (84-94) 06/04/17 04:57 MCH 29 pg (28-32) 06/04/17 04:57 MCHC 33 % (32-34) 06/04/17 04:57 RDW 14.4 % (13.2-15.2) 06/04/17 04:57 Plt Count 340 K/mm3 (140-440) 06/04/17 04:57 Lymph % (Auto) 17.1 % (13.4-35.0) 06/04/17 04:57 [place] % (Auto) 6.6 % (0.0-7.3) 06/04/17 04:57 Eos % (Auto) 1.1 % (0.0-4.3) 06/04/17 04:57 Baso % (Auto) 0.8 % (0.0-1.8) 06/04/17 04:57 Lymph # 3.1 K/mm3 (1.2-5.4) 06/04/17 04:57 [place] # 1.2 K/mm3 (0.0-0.8) H 06/04/17 04:57 Eos # 0.2 K/mm3 (0.0-0.4) 06/04/17 04:57 Baso # 0.1 K/mm3 (0.0-0.1) 06/04/17 04:57 Seg Neutrophils % 74.4 % (40.0-70.0) H 06/04/17 04:57 Seg Neutrophils # 13.6 K/mm3 (1.8-7.7) H 06/04/17 04:57 D-Dimer 455.38 ng/mlDDU (0-234) H 06/03/17 07:07 Sodium 136 mmol/L (137-145) L 06/04/17 04:57 Potassium 3.6 mmol/L (3.6-5.0) D 06/04/17 04:57 Chloride 98.1 mmol/L (98-107) 06/04/17 04:57 Carbon Dioxide 24 mmol/L (22-30) 06/04/17 04:57 Anion Gap 18 mmol/L 06/04/17 04:57 BUN 5 mg/dL (9-20) L 06/04/17 04:57 Creatinine 0.6 mg/dL (0.8-1.5) L 06/04/17 04:57 Estimated GFR > 60 ml/min 06/04/17 04:57 BUN/Creatinine Ratio 8 % 06/04/17 04:57 Glucose 100 mg/dL (75-100) 06/04/17 04:57 Lactic Acid 2.30 mmol/L (0.7-2.0) H* 06/02/17 19:37 Calcium 8.6 mg/dL (8.4-10.2) 06/04/17 04:57 Magnesium 1.80 mg/dL (1.7-2.3) 06/04/17 04:57 Total Bilirubin < 0.20 mg/dL (0.1-1.2) 06/02/17 19:54 AST 18 units/L (5-40) 06/02/17 19:54 ALT 25 units/L (7-56) 06/02/17 19:54 Alkaline Phosphatase 74 units/L (35-129) 06/02/17 19:54 Total Creatine Kinase 365 units/L (55-170) H 06/02/17 23:54 CK-MB (CK-2) 2.6 ng/mL (0.0-4.0) 06/02/17 23:54 CK-MB (CK-2) Rel Index 0.7 (0-4) 06/02/17 23:54 Troponin T < 0.010 ng/mL (0.00-0.029) 06/03/17 04:54 Total Protein 7.4 g/dL (6.3-8.2) 06/02/17 19:54 Albumin 4.0 g/dL (3.9-5) 06/02/17 19:54 Albumin/Globulin Ratio 1.2 % 06/02/17 19:54 Urine Color Yellow (Yellow) 06/02/17 22:47 Urine Turbidity Clear (Clear) 06/02/17 22:47 Urine pH 5.0 (5.0-7.0) 06/02/17 22:47 Ur Specific [place] 1.016 (1.003-1.030) 06/02/17 22:47 Urine Protein 30 mg/dl mg/dL (Negative) 06/02/17 22:47 Urine Glucose (UA) Neg mg/dL (Negative) 06/02/17 22:47 Urine Ketones Neg mg/dL (Negative) 06/02/17 22:47 Urine Blood Neg (Negative) 06/02/17 22:47 Urine Nitrite Neg (Negative) 06/02/17 22:47 Urine Bilirubin Neg (Negative) 06/02/17 22:47 Urine Urobilinogen < 2.0 mg/dL (<2.0) 06/02/17 22:47 Ur Leukocyte Esterase Neg (Negative) 06/02/17 22:47 Urine WBC (Auto) 2.0 /HPF (0.0-6.0) 06/02/17 22:47 Urine RBC (Auto) 3.0 /HPF (0.0-6.0) 06/02/17 22:47 Urine Bacteria (Auto) 1+ /HPF (Negative) 06/02/17 22:47 Urine Mucus Few /HPF 06/02/17 22:47 Salicylates < 0.3 mg/dL (2.8-20.0) L 06/02/17 18:22 Urine Opiates Screen Presumptive negative 06/02/17 22:47 Urine Methadone Screen Presumptive negative 06/02/17 22:47 Acetaminophen < 15.0 ug/mL (10.0-30.0) 06/02/17 18:22 Ur Barbiturates Screen Presumptive negative 06/02/17 22:47 Ur Phencyclidine Scrn Presumptive negative 06/02/17 22:47 Ur Amphetamines Screen Presumptive negative 06/02/17 22:47 U Benzodiazepines Scrn Presumptive negative 06/02/17 22:47 Urine Cocaine Screen Presumptive negative 06/02/17 22:47 U Marijuana (THC) Screen Presumptive negative 06/02/17 22:47 Drugs of Abuse Note Disclamer 06/02/17 22:47 Plasma/Serum Alcohol < 0.01 gm% (0-0.07) 06/02/17 18:22
== END 2017-06-05 14:54 | disposition home or self-care (01) | DRG 917 ==
LOC: ED 17:49 → 4A 22:44
PROVIDERS: ADMIT Internal Medicine; ATTEND Internal Medicine
PROC: 3E0234Z Introduction of Serum, Toxoid and Vaccine into Muscle, Percutaneous Approach (ICD-10-PCS; principal; 2017-06-03)
DX: T40.2X1A Poisoning by other opioids, accidental (unintentional), initial encounter (principal); A41.9 Sepsis, unspecified organism; K56.609 Unspecified intestinal obstruction, unspecified as to partial versus complete obstruction; N39.0 Urinary tract infection, site not specified; R65.10 Systemic inflammatory response syndrome (SIRS) of non-infectious origin without acute organ dysfunction; Z23 Encounter for immunization; Y92.89 Other specified places as the place of occurrence of the external cause; M94.0 Chondrocostal junction syndrome [Tietze]
CPT/HCPCS: 36415; 70450; 71275; 74176; 80048; 80053; 80307; 80320; 81001; 82140; 82550; 82553; 83735; 84484; 85025; 85379; 87040; 90686; 93005; 93010; 94760; 95819; 99285; G0480; J1170; J1650; J2543; Q9967

== ENCOUNTER 2018-02-05 11:25 | Emergency (ER) | payer MEDICARE ==
[2018-02-05] MEDS ORDERED: NACL 0.9% 1000 ML 1,000 ML IV ONE (12:43)
[2018-02-05] MEDS ORDERED: ZOFRAN ONE ×2 (12:57→16:26)
[2018-02-05] MEDS ORDERED: MORPHINE ONE ×3 (12:57→16:26)
[2018-02-05] MEDS ORDERED: ZOFRAN IV ONE ×2 (12:58→16:58)
[2018-02-05] MEDS ORDERED: MORPHINE IV ONE ×2 (12:58→16:58)
[2018-02-05 14:33] LABS: Basophils # (Auto) 0.1 K/mm3 (0.0-0.1); Basophils % (Auto) 0.8 % (0.0-1.8); Eosinophils # (Auto) 1.1 K/mm3 (0.0-0.4); Hemoglobin 13.8 gm/dl (11.8-15.2); Lymphocytes # (Auto) 1.7 K/mm3 (1.2-5.4); Lymphocytes % (Auto) 13.9 % (13.4-35.0); Mean Corpuscular HGB Conc 33 % (32-34); Mean Corpuscular Hemoglobin 29 pg (28-32); Mean Corpuscular Volume 89 fl (84-94); Monocytes # (Auto) 1.1 K/mm3 (0.0-0.8); Monocytes % (Auto) 8.6 % (0.0-7.3); Platelet Count 357 K/mm3 (140-440); Red Cell Distribution Width 15.2 % (13.2-15.2)
[2018-02-05 14:35] LABS: BUN/Creatinine Ratio 18; Blood Urea Nitrogen 9 mg/dL (9-20); Calcium 9.3 mg/dL (8.4-10.2); Hemolysis Index 113
[2018-02-05 14:59] LABS: Alanine Aminotransferase 23 units/L (7-56)
--- NOTE | 2018-02-05 15:32 | Cat Scan Report ---
CT ABDOMEN PELVIS WITH CONTRAST: HISTORY: Abdominal swelling, postoperative surgical pain. COMPARISON: 12/22/17. TECHNIQUE: Helical CT in 1.25mm intervals following IV contrast. Sagittal and coronal reconstructions. FINDINGS: Lung bases: Normal. Liver: Mild fatty change in the liver is stable. No suspicious mass. 1 cm hemangioma or cyst in the left hepatic lobe is noted. Biliary system: There are 3 or 4 partially calcified gallstones in the gallbladder measuring up to 1 cm. No biliary dilatation or inflammation. Pancreas: Normal. Spleen: Normal. Kidneys/ureters/bladder: Normal. Adrenal glands: Normal. Aorta: There appears to be previous aortobiiliac graft which is patent. No aneurysm or stenosis. Intestines: Diverticulosis of the distal colon is stable. No evidence for focal inflammation or obstruction. Appendix: Normal. Ascites: None. Adenopathy: None. Musculoskeletal: Ventral wall defect repair has been performed since the previous exam. The graft appears intact. No recurrent hernia is identified. There are however 2 rounded fluid collections on both sides of the umbilicus measuring 5.7 cm and 4.7 cm which probably represent seromas. Abscesses could also be considered but are thought less likely. IMPRESSION: Ventral wall hernia repair since 12/22/17 appears intact. There does appear to be 2 new seromas or possibly abscesses in the anterior subcutaneous tissues near the level of the umbilicus. Please correlate with the patient. Mild fatty infiltration of the liver. Cholelithiasis. Diverticulosis of the distal colon.
--- NOTE | 2018-02-05 16:06 | Emergency Department Report ---
ED Abdominal Pain HPI - General Chief Complaint: Abdominal Pain Stated Complaint: ABD SUTURES BUSTED Time Seen by Provider: 02/05/18 15:40 Source: patient Mode of arrival: Ambulatory Limitations: No Limitations - History of Present Illness Initial Comments: 57yo male with no significant PMHx came in complaints of abdominal pain, pt had a hernia surgery by about 2 weeks ago and pt went to his PCP and was told that he has another hernia and was sent here for evaluation. Pt denies fever, chills, pt denies n/v/cp/sob. MD Complaint: abdominal pain Onset/Timin -: Gradual, week(s) Location: periumbilical Radiation: none Migration to: no migration Severity: moderate Severity scale (0 -10): 4 Quality: aching Consistency: intermittent Improves With: movement, rest Worsens With: movement Associated Symptoms: denies other symptoms - Related Data Home Medications Medication Instructions Recorded Confirmed Last Taken Atorvastatin Calcium [Lipitor] 80 mg PO QDAY 01/05/18 01/05/18 Unknown Metoprolol [Lopressor TAB] 25 mg PO BID 01/05/18 01/05/18 Unknown Previous Rx's Medication Instructions Recorded Last Taken Type Pantoprazole [Protonix TAB] 40 mg PO QDAY #30 tablet 06/05/17 Unknown Rx Docusate Sodium [Colace CAP] 100 mg PO BID #20 capsule 01/13/18 Unknown Rx Famotidine [Pepcid] 20 mg PO QDAY #30 tablet 01/13/18 Unknown Rx Gabapentin [Neurontin] 300 mg PO Q8HR #30 capsule 01/13/18 Unknown Rx HYDROcodone/APAP 5-325 [[place] 2 each PO Q6H PRN #14 tablet 01/13/18 Unknown Rx 5-325 mg TAB] HYDROmorphone [Dilaudid] 1 mg PO Q6HR #14 tablet 01/13/18 Unknown Rx Nystatin Cream [Mycostatin Cream] 1 applic TP BID #1 tube 01/13/18 Unknown Rx oxyCODONE /ACETAMINOPHEN [Percocet 1 tab PO Q6HR PRN #6 tablet 02/05/18 Unknown Rx 5/325] Allergies Allergy/AdvReac Type Severity Reaction Status Date / Time No Known Allergies Allergy Verified 02/05/18 11:44 ED Review of Systems ROS: Stated complaint: ABD SUTURES BUSTED Other details as noted in HPI Constitutional: denies: chills, fever Eyes: denies: eye pain, eye discharge, vision change ENT: denies: ear pain, throat pain Respiratory: denies: cough, shortness of breath, wheezing Cardiovascular: denies: chest pain, palpitations Endocrine: no symptoms reported Gastrointestinal: denies: abdominal pain, nausea, diarrhea Genitourinary: denies: urgency, dysuria Musculoskeletal: denies: back pain, joint swelling, arthralgia Skin: denies: rash, lesions Neurological: denies: headache, weakness, paresthesias Psychiatric: denies: anxiety, depression Hematological/Lymphatic: denies: easy bleeding, easy bruising ED Past Medical Hx - Past Medical History Previous Medical History?: Yes Hx Hypertension: Yes Hx Heart Attack/AMI: Yes Hx Congestive Heart Failure: No Hx Diabetes: No Hx GERD: Yes Hx Liver Disease: No Hx Renal Disease: No Hx Sickle Cell Disease: No Hx Asthma: No Hx COPD: Yes Additional medical history: Severe PAD of bilateral legs. Status post vascular surgery for for abdominal bypass to legs. Hernia - Surgical History Past Surgical History?: Yes Hx Coronary Stent: Yes Additional Surgical History: abdominal/Vascular surgery - Social History Smoking Status: Never Smoker - Medications Home Medications: Home Medications Medication Instructions Recorded Confirmed Last Taken Type Pantoprazole [Protonix TAB] 40 mg PO QDAY #30 tablet 06/05/17 12/22/17 Unknown Rx Atorvastatin Calcium [Lipitor] 80 mg PO QDAY 01/05/18 01/05/18 Unknown History Metoprolol [Lopressor TAB] 25 mg PO BID 01/05/18 01/05/18 Unknown History Docusate Sodium [Colace CAP] 100 mg PO BID #20 capsule 01/13/18 Unknown Rx Famotidine [Pepcid] 20 mg PO QDAY #30 tablet 01/13/18 Unknown Rx Gabapentin [Neurontin] 300 mg PO Q8HR #30 capsule 01/13/18 Unknown Rx HYDROcodone/APAP 5-325 [[place] 2 each PO Q6H PRN #14 tablet 01/13/18 Unknown Rx 5-325 mg TAB] HYDROmorphone [Dilaudid] 1 mg PO Q6HR #14 tablet 01/13/18 Unknown Rx Nystatin Cream [Mycostatin Cream] 1 applic TP BID #1 tube 01/13/18 Unknown Rx oxyCODONE /ACETAMINOPHEN [Percocet 1 tab PO Q6HR PRN #6 tablet 02/05/18 Unknown Rx 5/325] ED Physical Exam - General Limitations: No Limitations General appearance: alert, in no apparent distress - Head Head exam: Present: atraumatic, normocephalic - Eye Eye exam: Present: normal appearance - ENT ENT exam: Present: mucous membranes moist - Neck Neck exam: Present: normal inspection - Respiratory Respiratory exam: Present: normal lung sounds bilaterally. Absent: respiratory distress - Cardiovascular Cardiovascular Exam: Present: regular rate, normal rhythm. Absent: systolic murmur, diastolic murmur, rubs, gallop - GI/Abdominal GI/Abdominal exam: Present: soft, tenderness (+slightly tender to palpation of periumbilical area, + small umbilical hernia noted, no guarding, no rebound tenderness), normal bowel sounds - Rectal Rectal exam: Present: deferred - Extremities Exam Extremities exam: Present: normal inspection - Back Exam Back exam: Present: normal inspection - Neurological Exam Neurological exam: Present: alert, oriented X3 - Psychiatric Psychiatric exam: Present: normal affect, normal mood - Skin Skin exam: Present: warm, dry, intact, normal color. Absent: rash ED Course Vital Signs 02/05/18 02/05/18 11:39 18:20 Temperature 97.6 F Pulse Rate 94 H Respiratory 18 16 Rate Blood Pressure 155/81 O2 Sat by Pulse 98 Oximetry 57yo male with recent hernia repair, POD#14, came in complaining of hernia seen by his primary care physician. Pts bloodwork is within normal limits. Pts CT scan shows possible seroma. i discussed the case with (pts surgeon director of oncology for ) and she states she looked at the CT scans and per her its not an abscess and to discharge pt home and to followup as outpatient. pt had told me about 1 week ago he wiped some blood near the anal area but hasnt had any bleeding per rectum, I tried to do a rectal exam and further workup, pt is refusing, all risks including explained and he doesnt want anything else done and wants to leave. At the time of disposition pt is stable, he denies n/v/cp/sob, he denies fever, chills. he is under no acute distress. he has an appt with next week and will followup with her. ED Medical Decision Making - Lab Data Result diagrams: 02/05/18 14:03 02/05/18 14:03 Critical care attestation.: If time is entered above; I have spent that time in minutes in the direct care of this critically ill patient, excluding procedure time. ED Disposition Clinical Impression: Seroma after procedure, Abdominal pain Disposition: DC- TO HOME OR SELFCARE Is pt being admited?: No Condition: Stable Additional Instructions: PLEASE FOLLOWUP WTIH without fail to reevaluate and treatment Prescriptions: oxyCODONE /ACETAMINOPHEN [Percocet 5/325] 1 tab PO Q6HR PRN #6 tablet PRN Reason: Pain Referrals: JONATHAN GEORGE MD [Primary Care Provider] - 3-5 Days INDIO MISTRY DO [Staff Physician] - JEM (please make sure to follwoup with her )
[2018-02-05 17:58] LABS: Bilirubin,Urine NEG (Negative); Blood,Urine SM (Negative); Color,Urine Straw (Yellow); Protein,Urine <15 mg/dL mg/dL (Negative); Urobilinogen,Urine < 2.0 mg/dL (<2.0); WBC,Urine < 1.0 /HPF (0.0-6.0)
[2018-02-05 19:06] VITALS: BP 149/78
== END 2018-02-05 19:05 | disposition home or self-care (01) ==
LOC: ED 11:25
DX: L76.34 Postprocedural seroma of skin and subcutaneous tissue following other procedure (principal); I10 Essential (primary) hypertension; I25.2 Old myocardial infarction; K21.9 Gastro-esophageal reflux disease without esophagitis; J44.9 Chronic obstructive pulmonary disease, unspecified; Z95.1 Presence of aortocoronary bypass graft
CPT/HCPCS: 36415; 74177; 80053; 81001; 85025; 93005; 93010; 96374; 96375; 96376; 99284; J2270; J2405; Q9967

== ENCOUNTER 2018-09-04 14:07 | Inpatient (IN) | payer MEDICARE ==
--- NOTE | 2018-09-04 14:24 | Emergency Department Report ---
Blank Doc - Documentation Documentation: 57 y o male PMH vascular dz and stent placement, hernia repair 6 months ago pr esnts with umbilical abdominal pain with intermittent chest pains labs xr Main Side To be evaluated Chrge Nurse notified
[2018-09-04] MEDS ORDERED: SUBLIMAZE IV ONE (15:16)
[2018-09-04] MEDS ORDERED: NACL 0.9% 1000 ML 1,000 ML IV ONE (15:16)
[2018-09-04] MEDS ORDERED: ZOFRAN IV ONE (15:16)
[2018-09-04 15:20] LABS: Basophils # (Auto) 0.3 K/mm3 (0.0-0.1); Basophils % (Auto) 2.2 % (0.0-1.8); Eosinophils # (Auto) 0.3 K/mm3 (0.0-0.4); Eosinophils % (Auto) 2.3 % (0.0-4.3); Hematocrit 47.9 % (35.5-45.6); Hemoglobin 15.7 gm/dl (11.8-15.2); Lymphocytes # (Auto) 1.8 K/mm3 (1.2-5.4); Lymphocytes % (Auto) 12.6 % (13.4-35.0); Mean Corpuscular HGB Conc 33 % (32-34); Mean Corpuscular Volume 83 fl (84-94); Monocytes # (Auto) 0.8 K/mm3 (0.0-0.8); Monocytes % (Auto) 5.4 % (0.0-7.3); Platelet Count 273 K/mm3 (140-440); Red Blood Count 5.79 M/mm3 (3.65-5.03); Red Cell Distribution Width 16.5 % (13.2-15.2)
--- NOTE | 2018-09-04 15:21 | Emergency Department Report ---
HPI - General Chief Complaint: Abdominal Pain Time Seen by Provider: 09/04/18 14:21 - HPI HPI: Room 26 The patient is a 57-year-old male presented with a chief complaint of abdominal pain. Patient states she developed right-sided abdominal pain yesterday described as a constant tearing in nature. Patient admits to nausea and vomiting states this morning when he attempted to have a bowel movement and passed gross blood. Patient admits to a subjective fever. Patient gives his pain a score of 9/10 Location: Gastrointestinal system Duration: 2 days Quality: Tearing Severity: 9/10 Modifying factors: [see above] Context: [see above] Mode of transportation: [not driving] ED Past Medical Hx - Past Medical History Hx Hypertension: Yes Hx Heart Attack/AMI: Yes Hx GERD: Yes Hx Arthritis: Yes Hx COPD: Yes Additional medical history: Severe PAD of bilateral legs. Status post vascular surgery for for abdominal bypass to legs. Hernia - Surgical History Hx Coronary Stent: Yes (vascular stents) Additional Surgical History: abdominal/Vascular surgery - Family History Family history: no significant - Social History Smoking Status: Former Smoker (none 2 years) Substance Use Type: None (denies illicit drug use) - Medications Home Medications: Home Medications Medication Instructions Recorded Confirmed Last Taken Type Atorvastatin Calcium [Lipitor] 80 mg PO QDAY 01/05/18 06/26/18 Unknown History Metoprolol [Lopressor TAB] 25 mg PO BID 01/05/18 06/26/18 Unknown History Aspirin 81 mg PO DAILY 06/26/18 06/26/18 Unknown History Tiotropium [place] [Spiriva] 2 puff IH DAILY 06/26/18 06/26/18 Unknown History Cilostazol [Pletal] 50 mg PO BID 30 Days tablet 06/29/18 Unknown Rx Gabapentin [Neurontin] 300 mg PO BID@0700,1800 30 Days 06/29/18 Unknown Rx capsule Gabapentin [Neurontin] 600 mg PO QHS 30 Days capsule 06/29/18 Unknown Rx oxyCODONE /ACETAMINOPHEN [Percocet 1 tab PO Q6HR PRN #20 tablet 06/29/18 Unknown Rx 5/325 mg] ED Review of Systems ROS: Stated complaint: STOMACH BLEEDING Other details as noted in HPI Constitutional: fever (subjective) Eyes: denies: eye pain ENT: denies: throat pain Respiratory: no symptoms reported Cardiovascular: denies: chest pain Endocrine: no symptoms reported Gastrointestinal: abdominal pain, nausea, vomiting, hematochezia Genitourinary: denies: dysuria Musculoskeletal: denies: back pain Neurological: denies: headache Physical Exam - Physical Exam Vital Signs: Vital Signs 09/04/18 14:20 Temperature 97.7 F Pulse Rate 98 H Respiratory 24 Rate Blood Pressure 142/74 O2 Sat by Pulse 98 Oximetry Physical Exam: GENERAL: The patient is well-developed well-nourished male lying on stretcher appearing in mild discomfort. [] HEENT: Normocephalic. Atraumatic. Extraocular motions are intact. Patient has moist mucous membranes. NECK: Supple. Trachea midline CHEST/LUNGS: Clear to auscultation. There is no respiratory distress noted. HEART/CARDIOVASCULAR: Regular. There is no tachycardia. There is no gallop rub or murmur. ABDOMEN: Abdomen is soft, with tenderness to palpation in the right abdomen. There is an easily reducible umbilical hernia. Patient has normal bowel sounds. There is no abdominal distention. SKIN: There is no rash. There is no edema. There is no diaphoresis. NEURO: The patient is awake, alert, and oriented. The patient is cooperative. The patient has normal speech MUSCULOSKELETAL: There is no evidence of acute injury. ED Course Vital Signs 09/04/18 14:20 Temperature 97.7 F Pulse Rate 98 H Respiratory 24 Rate Blood Pressure 142/74 O2 Sat by Pulse 98 Oximetry ED Medical Decision Making - Lab Data Result diagrams: 09/04/18 15:09 09/04/18 15:09 Laboratory Tests 09/04/18 09/04/18 09/04/18 15:09 15:09 15:09 WBC 14.1 H RBC 5.79 H Hgb 15.7 H Hct 47.9 H MCV 83 L MCH 27 L MCHC 33 RDW 16.5 H Plt Count 273 Lymph % (Auto) 12.6 L [place] % (Auto) 5.4 Eos % (Auto) 2.3 Baso % (Auto) 2.2 H Lymph # 1.8 [place] # 0.8 Eos # 0.3 Baso # 0.3 H Seg Neutrophils % 77.5 H Seg Neutrophils # 10.9 H PT 13.9 INR 1.01 Sodium 137 Potassium 4.3 Chloride 98.6 Carbon Dioxide 27 Anion Gap 16 BUN 11 Creatinine 0.6 L Estimated GFR > 60 BUN/Creatinine Ratio 18 Glucose 98 Calcium 8.9 Total Bilirubin Direct Bilirubin Indirect Bilirubin AST ALT Alkaline Phosphatase Total Protein Albumin Albumin/Globulin Ratio Lipase Urine Color Urine Turbidity Urine pH Ur Specific [place] Urine Protein Urine Glucose (UA) Urine Ketones Urine Blood Urine Nitrite Urine Bilirubin Urine Urobilinogen Ur Leukocyte Esterase Urine WBC (Auto) Urine RBC (Auto) 09/04/18 09/04/18 09/04/18 15:09 15:09 16:28 WBC RBC Hgb Hct MCV MCH MCHC RDW Plt Count Lymph % (Auto) [place] % (Auto) Eos % (Auto) Baso % (Auto) Lymph # [place] # Eos # Baso # Seg Neutrophils % Seg Neutrophils # PT INR Sodium Potassium Chloride Carbon Dioxide Anion Gap BUN Creatinine Estimated GFR BUN/Creatinine Ratio Glucose Calcium Total Bilirubin 0.30 Direct Bilirubin < 0.2 Indirect Bilirubin 0.1 AST 14 ALT 18 Alkaline Phosphatase 84 Total Protein 7.3 Albumin 3.9 Albumin/Globulin Ratio 1.1 Lipase 21 Urine Color Yellow Urine Turbidity Clear Urine pH 6.0 Ur Specific [place] 1.010 Urine Protein <15 mg/dl Urine Glucose (UA) Neg Urine Ketones Neg Urine Blood Neg Urine Nitrite Neg Urine Bilirubin Neg Urine Urobilinogen < 2.0 Ur Leukocyte Esterase Neg Urine WBC (Auto) < 1.0 Urine RBC (Auto) 3.0 - Radiology Data Radiology results: report reviewed (CT abdomen and pelvis, CT chest), image reviewed (CT abdomen and pelvis, CT chest) CT abdomen and pelvis (read by radiologist)-no acute intra-abdominal process noted. Cholelithiasis again noted. Periumbilical hernia is unchanged. CT chest (read by radiologist)-no acute abnormality identified in the chest. Negative exam - Differential Diagnosis colitis, GI bleed, appendicitis, Critical care attestation.: If time is entered above; I have spent that time in minutes in the direct care of this critically ill patient, excluding procedure time. ED Disposition Clinical Impression: Acute abdominal pain, Hematochezia, Cholelithiasis, Leukocytosis Disposition: OP ADMIT IP TO THIS HOSP Is pt being admited?: Yes Does the pt Need Aspirin: No Condition: Fair Time of Disposition: 19:46 (hospitalist paged (Dr Arreguin))
[2018-09-04 15:32] LABS: INR 1.01 (0.87-1.13)
[2018-09-04 15:42] LABS: BUN/Creatinine Ratio 18; Blood Urea Nitrogen 11 mg/dL (9-20); Calcium 8.9 mg/dL (8.4-10.2); Hemolysis Index 1
[2018-09-04 15:44] LABS: Alanine Aminotransferase 18 units/L (7-56); Albumin 3.9 g/dL (3.9-5)
[2018-09-04 15:52] LABS: Bilirubin,Direct < 0.2 mg/dL (0-0.2)
[2018-09-04] MEDS ORDERED: DILAUDID IV ONE ×3 (16:03→19:54)
[2018-09-04 16:41] LABS: Bilirubin,Urine NEG (Negative); Blood,Urine NEG (Negative); Color,Urine Yellow (Yellow); Protein,Urine <15 mg/dL mg/dL (Negative); Urobilinogen,Urine < 2.0 mg/dL (<2.0); WBC,Urine < 1.0 /HPF (0.0-6.0)
[2018-09-04] MEDS ORDERED: REGLAN IV ONE (18:05)
[2018-09-04] MEDS ORDERED: APRESOLINE IV PRN (22:06)
--- NOTE | 2018-09-04 22:06 | History and Physical Report ---
History of Present Illness Date of examination: 09/04/18 History of present illness: 57-year-old man with a history of peripheral vascular disease, coronary artery disease hypertension, GERD, COPD comes emergency room with complaint of abdominal pain started yesterday, in the mid abdomen, pain felt as if something was ripped, constant, no radiation, intensity 7/10. Today he had one episodes of bright red blood. He had a colonoscopy in 2017 which was negative Review of systems Constitutional: no weight loss, chills, fever Ears, eyes, nose, mouth and throat: no nasal congestion, no nasal discharge, no sinus pressure, no vision change, no red eye. Neck: No neck pain or rigidity. Cardiovascular: no palpitations, chest pain Respiratory: no cough, shortness of breath Gastrointestinal: + hematochezia, abdominal pain Genitourinary : no frequency , no hematuria Musculoskeletal: no joint swelling or muscle ache Integumentary: no rash, no pruritis Neurological: no parathesias, no focal weakness Endocrine: no cold or heat intolerance, no polyuria or polydipsia Hematologic/Lymphatic: no easy bruising, no easy bleeding, no gland swelling Allergic/Immunologic: no urticaria, no angioedema. PAST MEDICAL HISTORY:peripheral vascular disease, coronary artery disease, hypertension, GERD, COPD PAST SURGICAL HISTORY: Hernia repair, bypass on legs FAILY HISTORY:Hypertension SOCIAL HISTORY: Denies alcohol, tobacco, drugs Medications and Allergies Allergies Allergy/AdvReac Type Severity Reaction Status Date / Time Iodinated Contrast- Oral and AdvReac Unknown Verified 09/04/18 14:20 IV Dye Home Medications Medication Instructions Recorded Confirmed Last Taken Type Atorvastatin Calcium [Lipitor] 80 mg PO QDAY 01/05/18 09/04/18 Unknown History Metoprolol [Lopressor TAB] 25 mg PO BID 01/05/18 09/04/18 Unknown History Aspirin 81 mg PO DAILY 06/26/18 09/04/18 Unknown History Tiotropium [place] [Spiriva] 2 puff IH DAILY 06/26/18 09/04/18 Unknown History Cilostazol [Pletal] 50 mg PO BID 30 Days tablet 06/29/18 09/04/18 Unknown Rx Gabapentin [Neurontin] 300 mg PO BID@0700,1800 30 Days 06/29/18 09/04/18 Unknown Rx capsule Gabapentin [Neurontin] 600 mg PO QHS 30 Days capsule 06/29/18 09/04/18 Unknown Rx oxyCODONE /ACETAMINOPHEN [Percocet 1 tab PO Q6HR PRN #20 tablet 06/29/18 09/04/18 Unknown Rx 5/325 mg] Albuterol Sulfate [Proventil Hfa] 13.4 gm IH Q6H 09/04/18 09/04/18 Unknown History Clopidogrel Bisulfate [Plavix] 75 mg PO DAILY 09/04/18 09/04/18 Unknown History [place]-3/Dha/Epa/Fish Oil [[place] 3 1 each PO BID 09/04/18 09/04/18 Unknown History 500 Softgel] Ubidecarenone [Co Q-10] 10 mg PO BID 09/04/18 09/04/18 Unknown History Exam - Physical Exam Narrative exam: General Apperance: The patient lying in bed, breathing comfortable HEENT: Normocephalic, atraumatic. Pupils equally round and reactive to light, EOMI, no sclericterus or JVD or thyromegaly or nodule. , no carotid bruit, mucous membranes moist, no exudate or erythema Heart: S1-S2, regular is rhythm Lungs: Clear to auscultation bilaterally, breathing comfortable Abdomen: Positive bowel sounds, soft, nontender, nondistended, no organomegaly Extremities: No edema cyanosis clubbing Skin: no rash, nodule, warm and dry Neuro: cranial nerves 2-12 intact, speech is fluent, motor/sensory intact - Constitutional Vitals: Temp Pulse Resp BP Pulse Ox 97.7 F 100 H 23 148/64 95 09/04/18 14:20 09/04/18 19:15 09/04/18 19:15 09/04/18 20:00 09/04/18 20:00 Results - Labs CBC & Chem 7: 09/04/18 22:56 09/04/18 15:09 Labs: Abnormal lab results 09/04/18 09/04/18 Range/Units 15:09 15:09 WBC 14.1 H (4.5-11.0) K/mm3 RBC 5.79 H (3.65-5.03) M/mm3 Hgb 15.7 H (11.8-15.2) gm/dl Hct 47.9 H (35.5-45.6) % MCV 83 L (84-94) fl MCH 27 L (28-32) pg RDW 16.5 H (13.2-15.2) % Lymph % (Auto) 12.6 L (13.4-35.0) % Baso % (Auto) 2.2 H (0.0-1.8) % Baso # 0.3 H (0.0-0.1) K/mm3 Seg Neutrophils % 77.5 H (40.0-70.0) % Seg Neutrophils # 10.9 H (1.8-7.7) K/mm3 Creatinine 0.6 L (0.8-1.5) mg/dL - Imaging and Cardiology CT scan - abdomen: report reviewed CT scan - chest: report reviewed CT scan - pelvis: report reviewed Assessment and Plan Assessment Hematochezia Abdominal pain peripheral vascular disease coronary artery disease hypertension GERD COPD Plan Admit to medicine Start IV fluids, consult GI, check serial hemoglobin Start IV hydralazine for blood pressure control DVT prophylaxis, IV morphine
[2018-09-04] MEDS ORDERED: MORPHINE IV ONE (22:27)
[2018-09-04] MEDS ORDERED: MORPHINE ONE (22:38)
[2018-09-04] MEDS ORDERED: ZOFRAN IV PRN (22:43)
[2018-09-04] MEDS ORDERED: TYLENOL PO PRN (22:43)
[2018-09-04] MEDS ORDERED: SODIUM CHLORIDE FLUSH SYRINGE 10 ML IV PRN (22:43)
[2018-09-04] MEDS ORDERED: NACL 0.9% 1000 ML 1,000 ML IV SCH (23:00)
[2018-09-04 23:09] LABS: Hematocrit 48.1 % (35.5-45.6); Hemoglobin 15.6 gm/dl (11.8-15.2)
[2018-09-05] MEDS: MORPHINE IV PRN ×4 (01:02→21:56)
[2018-09-05] MEDS: NACL 0.45% 1000 ML 1,000 ML IV SCH ×2 (01:49→16:19)
[2018-09-05] MEDS ORDERED: MORPHINE IV ONE (02:12)
[2018-09-05] MEDS: NEURONTIN PO SCH ×2 (06:10→18:18)
[2018-09-05 06:17] LABS: Basophils # (Auto) 0.1 K/mm3 (0.0-0.1); Basophils % (Auto) 0.7 % (0.0-1.8); Eosinophils # (Auto) 0.3 K/mm3 (0.0-0.4); Eosinophils % (Auto) 2.3 % (0.0-4.3); Hematocrit 46.4 % (35.5-45.6); Lymphocytes % (Auto) 14.1 % (13.4-35.0); Mean Corpuscular HGB Conc 32 % (32-34); Mean Corpuscular Volume 85 fl (84-94); Monocytes % (Auto) 6.9 % (0.0-7.3); Platelet Count 253 K/mm3 (140-440); Red Blood Count 5.48 M/mm3 (3.65-5.03); Red Cell Distribution Width 16.3 % (13.2-15.2)
[2018-09-05 06:40] LABS: BUN/Creatinine Ratio 18; Blood Urea Nitrogen 9 mg/dL (9-20); Calcium 8.9 mg/dL (8.4-10.2); Hemolysis Index 10
[2018-09-05] MEDS ORDERED: NON-FORMULARY (Omega-3/Dha/Epa/Fish Oil [Omega 3 500 Softgel] 1 EACH) PO SCH (10:00)
[2018-09-05] MEDS: FISH OIL PO SCH (11:25)
--- NOTE | 2018-09-05 12:02 | Gastroenterology Consultation ---
Addendum entered and electronically signed by LEONARD WATKINS MD 09/05/18 15:31: I have personally interviewed and examined the patient. I agree with the above A/P. The patient is clinically stable, without gross bleeding and a normal hct despite daily plavix. His colonoscopy in 2016 was negative. Abdominal pain is likely due to his severe adhesions and recurrent hernia disease. No plans for endoscopy, and OK to continue the plavix long-term. Will sign off at present; patient to f/u with us in the clinic. Please call us if needed. Original Note: History of Present Illness - Reason for Consult Consult date: 09/05/18 hematochezia Requesting physician: MIGUEL ALLEN - History of Present Illness Patient is a 57 y/o male with PMH of PAD (s/p aortobifemoral bypass), CAD, HTN, GERD, and COPD, chronic pain (w/ chronic narcotic use), and incarcerated incisional hernia repair 12/2017 who presented to ED with c/o abdominal pain described as a tearing/ripping in nature that is constant and BRBPR when he attempted to have a BM to which GI has been consulted. CT chest negative for PE. Abd CT pending. This morning patient was resting in bed w/o acute distress. Reports continued mid abd pain. Has had no further episodes or rectal bleeding since yesterday. No hematemesis or melena. Denies fever, wt loss, CP, SOB, dizziness, N/V, or diarrhea. Has occasional constipation. States he had a colonoscopy in approximately 2017 (possibly at [facility]) with negative results. No know Fhx of GI cancers. On plavix and ASA at home. Past History Past Medical History: other (as per HPI) Past Surgical History: hernia repair, Other (open aortobifemoral bypass, R leg surgery, coronary stents) Social history: other (former smoker). denies: alcohol abuse Family history: hypertension Medications and Allergies Allergies Allergy/AdvReac Type Severity Reaction Status Date / Time Iodinated Contrast- Oral and AdvReac Unknown Verified 09/04/18 14:20 IV Dye Home Medications Medication Instructions Recorded Confirmed Last Taken Type Atorvastatin Calcium [Lipitor] 80 mg PO QDAY 01/05/18 09/04/18 Unknown History Metoprolol [Lopressor TAB] 25 mg PO BID 01/05/18 09/04/18 Unknown History Aspirin 81 mg PO DAILY 06/26/18 09/04/18 Unknown History Tiotropium [place] [Spiriva] 2 puff IH DAILY 06/26/18 09/04/18 Unknown History Cilostazol [Pletal] 50 mg PO BID 30 Days tablet 06/29/18 09/04/18 Unknown Rx Gabapentin [Neurontin] 300 mg PO BID@0700,1800 30 Days 06/29/18 09/04/18 Unknown Rx capsule Gabapentin [Neurontin] 600 mg PO QHS 30 Days capsule 06/29/18 09/04/18 Unknown Rx oxyCODONE /ACETAMINOPHEN [Percocet 1 tab PO Q6HR PRN #20 tablet 06/29/18 09/04/18 Unknown Rx 5/325 mg] Albuterol Sulfate [Proventil Hfa] 13.4 gm IH Q6H 09/04/18 09/04/18 Unknown History Clopidogrel Bisulfate [Plavix] 75 mg PO DAILY 09/04/18 09/04/18 Unknown History [place]-3/Dha/Epa/Fish Oil [[place] 3 1 each PO BID 09/04/18 09/04/18 Unknown History 500 Softgel] Ubidecarenone [Co Q-10] 10 mg PO BID 09/04/18 09/04/18 Unknown History Active Meds: Active Medications Acetaminophen (Tylenol) 650 mg PO Q4H PRN PRN Reason: Pain MILD(1-3)/Fever >100.5/[place] Atorvastatin Calcium (Lipitor) 80 mg PO QHS [facility] Fish Oil (Fish Oil) 1,000 mg PO QDAY [facility] Last Admin: 09/05/18 11:25 Dose: 1,000 mg Documented by: Gabapentin (Neurontin) 300 mg PO BID@0700,1800 [facility] Last Admin: 09/05/18 06:10 Dose: 300 mg Documented by: Hydralazine HCl (Apresoline) 5 mg IV Q6H PRN PRN Reason: HTN SBP>175 Sodium Chloride (Nacl 0.45% 1000 Ml) 1,000 mls @ 125 mls/hr IV DIRECT [facility] Last Admin: 09/05/18 01:49 Dose: 125 mls/hr Documented by: Morphine Sulfate (Morphine) 2 mg IV Q4H PRN PRN Reason: Pain, Moderate (4-6) Last Admin: 09/05/18 06:08 Dose: 2 mg Documented by: Ondansetron HCl (Zofran) 4 mg IV Q4H PRN PRN Reason: Nausea And Vomiting Last Admin: 09/05/18 11:25 Dose: 4 mg Documented by: Sodium Chloride (Sodium Chloride Flush Syringe 10 Ml) 10 ml IV BID [facility] Sodium Chloride (Sodium Chloride Flush Syringe 10 Ml) 10 ml IV PRN PRN PRN Reason: LINE FLUSH medications reviewed/updated as required Review of Systems - Review of Systems All systems: negative Gastrointestinal: abdominal pain, hematochezia Exam - Constitutional Vital Signs: Temp Pulse Resp BP Pulse Ox 98.8 F 93 H 17 131/68 92 09/05/18 05:44 09/05/18 00:14 09/05/18 05:44 09/05/18 05:44 09/05/18 08:31 General appearance: no acute distress - Respiratory Respiratory: bilateral: diminished - Cardiovascular Rhythm: regular Heart Sounds: Present: S1 & S2 - Gastrointestinal General gastrointestinal: Present: soft, non-distended, normal bowel sounds, hernia (umbilical), other (+scars from previous surgery) - Neurologic Neurological: alert and oriented x3 - Labs CBC & Chem 7: 09/05/18 05:56 09/05/18 05:56 Lab Results: Laboratory Results - last 24 hr 09/04/18 09/04/18 09/04/18 15:09 15:09 15:09 WBC 14.1 H RBC 5.79 H Hgb 15.7 H Hct 47.9 H MCV 83 L MCH 27 L MCHC 33 RDW 16.5 H Plt Count 273 Lymph % (Auto) 12.6 L [place] % (Auto) 5.4 Eos % (Auto) 2.3 Baso % (Auto) 2.2 H Lymph # 1.8 [place] # 0.8 Eos # 0.3 Baso # 0.3 H Seg Neutrophils % 77.5 H Seg Neutrophils # 10.9 H PT 13.9 INR 1.01 Sodium 137 Potassium 4.3 Chloride 98.6 Carbon Dioxide 27 Anion Gap 16 BUN 11 Creatinine 0.6 L Estimated GFR > 60 BUN/Creatinine Ratio 18 Glucose 98 Calcium 8.9 Total Bilirubin Direct Bilirubin Indirect Bilirubin AST ALT Alkaline Phosphatase Total Protein Albumin Albumin/Globulin Ratio Lipase Urine Color Urine Turbidity Urine pH Ur Specific [place] Urine Protein Urine Glucose (UA) Urine Ketones Urine Blood Urine Nitrite Urine Bilirubin Urine Urobilinogen Ur Leukocyte Esterase Urine WBC (Auto) Urine RBC (Auto) 09/04/18 09/04/18 09/04/18 15:09 15:09 16:28 WBC RBC Hgb Hct MCV MCH MCHC RDW Plt Count Lymph % (Auto) [place] % (Auto) Eos % (Auto) Baso % (Auto) Lymph # [place] # Eos # Baso # Seg Neutrophils % Seg Neutrophils # PT INR Sodium Potassium Chloride Carbon Dioxide Anion Gap BUN Creatinine Estimated GFR BUN/Creatinine Ratio Glucose Calcium Total Bilirubin 0.30 Direct Bilirubin < 0.2 Indirect Bilirubin 0.1 AST 14 ALT 18 Alkaline Phosphatase 84 Total Protein 7.3 Albumin 3.9 Albumin/Globulin Ratio 1.1 Lipase 21 Urine Color Yellow Urine Turbidity Clear Urine pH 6.0 Ur Specific [place] 1.010 Urine Protein <15 mg/dl Urine Glucose (UA) Neg Urine Ketones Neg Urine Blood Neg Urine Nitrite Neg Urine Bilirubin Neg Urine Urobilinogen < 2.0 Ur Leukocyte Esterase Neg Urine WBC (Auto) < 1.0 Urine RBC (Auto) 3.0 09/04/18 09/05/18 09/05/18 22:56 05:56 05:56 WBC 13.9 H RBC 5.48 H Hgb 15.6 H 15.0 Hct 48.1 H 46.4 H MCV 85 MCH 27 L MCHC 32 RDW 16.3 H Plt Count 253 Lymph % (Auto) 14.1 [place] % (Auto) 6.9 Eos % (Auto) 2.3 Baso % (Auto) 0.7 Lymph # 2.0 [place] # 1.0 H Eos # 0.3 Baso # 0.1 Seg Neutrophils % 76.0 H Seg Neutrophils # 10.6 H PT INR Sodium 138 Potassium 4.0 Chloride 98.6 Carbon Dioxide 26 Anion Gap 17 BUN 9 Creatinine 0.5 L Estimated GFR > 60 BUN/Creatinine Ratio 18 Glucose 97 Calcium 8.9 Total Bilirubin Direct Bilirubin Indirect Bilirubin AST ALT Alkaline Phosphatase Total Protein Albumin Albumin/Globulin Ratio Lipase Urine Color Urine Turbidity Urine pH Ur Specific [place] Urine Protein Urine Glucose (UA) Urine Ketones Urine Blood Urine Nitrite Urine Bilirubin Urine Urobilinogen Ur Leukocyte Esterase Urine WBC (Auto) Urine RBC (Auto) Assessment and Plan 1.hematochezia -H/H WNL (15.0/46.4) -continue to monitor H/H and transfuse as needed -patient reports 1 episode of BRBPR yesterday after a BM -currently HD stable with no active signs of bleeding overnight or this am -last colonoscopy approximately in 2016 with negative results per pt report -etiology-likely anorectal in nature -no plan for scope at this time, unless overt bleeding develops -continue PPI -daily Mirlax for occasional constipation (likely 2/2chronic narcotic use) -continue supportive care 2.chronic pain 3.abd pain-chronic -s/p aortobifemoral bypass (2015) -s/p incarcerated hernia repair (12/2017) -etiology-likely 2/2 hernia vs adhesions -abd CT pending -continue supportive care 3.PVD 4.CAD 5.HTN 6.COPD 7.GERD
--- NOTE | 2018-09-05 13:55 | Progress Note ---
Assessment and Plan Assessment and plan: Assessment Leukocytosis mild, reactive no evidence of infection, recheck in am Chronic pain syndrome with drug seeking behavior add Tramadol outpt pain mgt Obstructive Sleep Apnea Bipap pulm eval outpt sleep study BRBPR GI on board monitor for rebleed Chronic abd pain supportive care Morbid Obesity loose weight diet modication HTN continue meds Opioid induced constipation laxatives and stool softners. D/c planning in am once cleared by the specialists Further pt mgt per hospital course Disposition Plan: discharge planning Total Time Spent with Patient (Minutes): 30 mins spent History Interval history: History of present illness: 57-year-old man with a history of peripheral vascular disease, coronary artery disease hypertension, GERD, COPD presented to the emergency room with complaint of abdominal pain started yesterday, in the mid abdomen, pain felt as if something was ripped, constant, no radiation, intensity /10. Today he had one episodes of bright red blood. He had a colonoscopy in 2017 which was negative. Subjective: c/o 8/10 mid abd pain, constant , minimally relieved by morphine. Non radiating, pt is yet to have a BM. Pt requested for something stronger. He informed me that he was on Percocet, but ran out and that he is trying to get himself back on Pain meds. Pt intermittently slept off with snoring during the encounter and when asked about CPAP use, he admitted that he has not used a CPAP machine but was informed that he has Sleep Apnea. Pt was distracted during his abd exam, and no tenderness was elicited. Patient has called the RN multiple times today requesting for pain meds. Hospitalist Physical - Constitutional Vitals: Temp Pulse Resp BP Pulse Ox 98.8 F 93 H 17 131/68 92 09/05/18 05:44 09/05/18 00:14 09/05/18 05:44 09/05/18 05:44 09/05/18 08:31 General appearance: Present: no acute distress, well-nourished, obese (MORBIDLY), other (Snoring) - EENT Eyes: Present: PERRL, EOM intact ENT: hearing intact, clear oral mucosa, other (due to body habitus, was unable to visualize oropharynx) - Neck Neck: Present: supple, normal ROM, other (short and obese) - Respiratory Respiratory: bilateral: diminished, rhonchi, negative: rales, wheezing - Cardiovascular Rhythm: regular Heart Sounds: Present: S1 & S2 - Extremities Extremities: normal temperature, normal color, Full ROM - Abdominal General gastrointestinal: soft, non-tender, normal bowel sounds, other (obese and protuberant) - Integumentary Integumentary: Present: clear, warm, dry - Psychiatric Psychiatric: intact judgment & insight, memory intact - Neurologic Neurologic: CNII-XII intact, moves all extremities - Allied Health Allied health notes reviewed: nursing, case management Results - Labs CBC & Chem 7: 09/05/18 05:56 09/05/18 05:56 Labs: Laboratory Last Values WBC 13.9 K/mm3 (4.5-11.0) H 09/05/18 05:56 RBC 5.48 M/mm3 (3.65-5.03) H 09/05/18 05:56 Hgb 15.0 gm/dl (11.8-15.2) 09/05/18 05:56 Hct 46.4 % (35.5-45.6) H 09/05/18 05:56 MCV 85 fl (84-94) 09/05/18 05:56 MCH 27 pg (28-32) L 09/05/18 05:56 MCHC 32 % (32-34) 09/05/18 05:56 RDW 16.3 % (13.2-15.2) H 09/05/18 05:56 Plt Count 253 K/mm3 (140-440) 09/05/18 05:56 Lymph % (Auto) 14.1 % (13.4-35.0) 09/05/18 05:56 [place] % (Auto) 6.9 % (0.0-7.3) 09/05/18 05:56 Eos % (Auto) 2.3 % (0.0-4.3) 09/05/18 05:56 Baso % (Auto) 0.7 % (0.0-1.8) 09/05/18 05:56 Lymph # 2.0 K/mm3 (1.2-5.4) 09/05/18 05:56 [place] # 1.0 K/mm3 (0.0-0.8) H 09/05/18 05:56 Eos # 0.3 K/mm3 (0.0-0.4) 09/05/18 05:56 Baso # 0.1 K/mm3 (0.0-0.1) 09/05/18 05:56 Seg Neutrophils % 76.0 % (40.0-70.0) H 09/05/18 05:56 Seg Neutrophils # 10.6 K/mm3 (1.8-7.7) H 09/05/18 05:56 PT 13.9 Sec. (12.2-14.9) 09/04/18 15:09 INR 1.01 (0.87-1.13) 09/04/18 15:09 Sodium 138 mmol/L (137-145) 09/05/18 05:56 Potassium 4.0 mmol/L (3.6-5.0) 09/05/18 05:56 Chloride 98.6 mmol/L (98-107) 09/05/18 05:56 Carbon Dioxide 26 mmol/L (22-30) 09/05/18 05:56 Anion Gap 17 mmol/L 09/05/18 05:56 BUN 9 mg/dL (9-20) 09/05/18 05:56 Creatinine 0.5 mg/dL (0.8-1.5) L 09/05/18 05:56 Estimated GFR > 60 ml/min 09/05/18 05:56 BUN/Creatinine Ratio 18 % 09/05/18 05:56 Glucose 97 mg/dL (75-100) 09/05/18 05:56 Calcium 8.9 mg/dL (8.4-10.2) 09/05/18 05:56 Total Bilirubin 0.30 mg/dL (0.1-1.2) 09/04/18 15:09 Direct Bilirubin < 0.2 mg/dL (0-0.2) 09/04/18 15:09 Indirect Bilirubin 0.1 mg/dL 09/04/18 15:09 AST 14 units/L (5-40) 09/04/18 15:09 ALT 18 units/L (7-56) 09/04/18 15:09 Alkaline Phosphatase 84 units/L (35-129) 09/04/18 15:09 Total Protein 7.3 g/dL (6.3-8.2) 09/04/18 15:09 Albumin 3.9 g/dL (3.9-5) 09/04/18 15:09 Albumin/Globulin Ratio 1.1 % 09/04/18 15:09 Lipase 21 units/L (13-60) 09/04/18 15:09 Urine Color Yellow (Yellow) 09/04/18 16:28 Urine Turbidity Clear (Clear) 09/04/18 16:28 Urine pH 6.0 (5.0-7.0) 09/04/18 16:28 Ur Specific [place] 1.010 (1.003-1.030) 09/04/18 16:28 Urine Protein <15 mg/dl mg/dL (Negative) 09/04/18 16:28 Urine Glucose (UA) Neg mg/dL (Negative) 09/04/18 16:28 Urine Ketones Neg mg/dL (Negative) 09/04/18 16:28 Urine Blood Neg (Negative) 09/04/18 16:28 Urine Nitrite Neg (Negative) 09/04/18 16:28 Urine Bilirubin Neg (Negative) 09/04/18 16:28 Urine Urobilinogen < 2.0 mg/dL (<2.0) 09/04/18 16:28 Ur Leukocyte Esterase Neg (Negative) 09/04/18 16:28 Urine WBC (Auto) < 1.0 /HPF (0.0-6.0) 09/04/18 16:28 Urine RBC (Auto) 3.0 /HPF (0.0-6.0) 09/04/18 16:28 - Imaging and Cardiology CT scan - abdomen: report reviewed CT scan - chest: report reviewed
[2018-09-05] MEDS: SODIUM CHLORIDE FLUSH SYRINGE 10 ML IV SCH ×2 (16:17→21:56)
[2018-09-05] MEDS: PROTONIX IV SCH (16:17)
[2018-09-06 01:08] LABS: Hemoglobin 15.9 gm/dl (11.8-15.2); Mean Corpuscular HGB Conc 33 % (32-34); Mean Corpuscular Volume 85 fl (84-94); Platelet Count 272 K/mm3 (140-440); Red Blood Count 5.78 M/mm3 (3.65-5.03); Red Cell Distribution Width 16.7 % (13.2-15.2)
[2018-09-06] MEDS: MORPHINE IV PRN ×6 (02:14→22:35)
[2018-09-06] MEDS: NACL 0.45% 1000 ML 1,000 ML IV SCH (05:38)
[2018-09-06] MEDS: NEURONTIN PO SCH ×2 (06:42→18:12)
[2018-09-06] MEDS: FISH OIL PO SCH (10:28)
[2018-09-06] MEDS: NORVASC PO SCH (10:28)
[2018-09-06] MEDS: PROTONIX IV SCH (10:28)
[2018-09-06] MEDS: MIRALAX 3350 PO SCH (10:29)
[2018-09-06] MEDS: SODIUM CHLORIDE FLUSH SYRINGE 10 ML IV SCH ×2 (10:29→21:44)
--- NOTE | 2018-09-06 13:54 | Consultation ---
History of Present Illness Consult date: 09/06/18 Requesting physician: SHIRA SCHERER Reason for consult: other (RODY/OHS) History of present illness: PULMONARY/CCM CONSULT NOTE (Full dictation # [id number]) Please see dictated notes for full details Past History Past Medical History: other (as per HPI) Past Surgical History: hernia repair, Other (open aortobifemoral bypass, R leg surgery, coronary stents) Social history: other (former smoker). denies: alcohol abuse Family history: hypertension Medications and Allergies Allergies Allergy/AdvReac Type Severity Reaction Status Date / Time Iodinated Contrast- Oral and AdvReac Unknown Verified 09/04/18 14:20 IV Dye Home Medications Medication Instructions Recorded Confirmed Last Taken Type Atorvastatin Calcium [Lipitor] 80 mg PO QDAY 01/05/18 09/04/18 Unknown History Metoprolol [Lopressor TAB] 25 mg PO BID 01/05/18 09/04/18 Unknown History Aspirin 81 mg PO DAILY 06/26/18 09/04/18 Unknown History Tiotropium [place] [Spiriva] 2 puff IH DAILY 06/26/18 09/04/18 Unknown History Cilostazol [Pletal] 50 mg PO BID 30 Days tablet 06/29/18 09/04/18 Unknown Rx Gabapentin [Neurontin] 300 mg PO BID@0700,1800 30 Days 06/29/18 09/04/18 Unknown Rx capsule Gabapentin [Neurontin] 600 mg PO QHS 30 Days capsule 06/29/18 09/04/18 Unknown Rx oxyCODONE /ACETAMINOPHEN [Percocet 1 tab PO Q6HR PRN #20 tablet 06/29/18 09/04/18 Unknown Rx 5/325 mg] Albuterol Sulfate [Proventil Hfa] 13.4 gm IH Q6H 09/04/18 09/04/18 Unknown History Clopidogrel Bisulfate [Plavix] 75 mg PO DAILY 09/04/18 09/04/18 Unknown History [place]-3/Dha/Epa/Fish Oil [[place] 3 1 each PO BID 09/04/18 09/04/18 Unknown History 500 Softgel] Ubidecarenone [Co Q-10] 10 mg PO BID 09/04/18 09/04/18 Unknown History Active Meds: Active Medications Acetaminophen (Tylenol) 650 mg PO Q4H PRN PRN Reason: Pain MILD(1-3)/Fever >100.5/[place] Amlodipine Besylate (Norvasc) 10 mg PO QDAY [facility] Last Admin: 09/06/18 10:28 Dose: 10 mg Documented by: Atorvastatin Calcium (Lipitor) 80 mg PO QHS [facility] Last Admin: 09/05/18 21:56 Dose: 80 mg Documented by: Fish Oil (Fish Oil) 1,000 mg PO QDAY [facility] Last Admin: 09/06/18 10:28 Dose: 1,000 mg Documented by: Gabapentin (Neurontin) 300 mg PO BID@0700,1800 [facility] Last Admin: 09/06/18 06:42 Dose: 300 mg Documented by: Hydralazine HCl (Apresoline) 5 mg IV Q6H PRN PRN Reason: HTN SBP>175 Sodium Chloride (Nacl 0.45% 1000 Ml) 1,000 mls @ 125 mls/hr IV DIRECT [facility] Last Admin: 09/06/18 05:38 Dose: 125 mls/hr Documented by: Morphine Sulfate (Morphine) 2 mg IV Q4H PRN PRN Reason: Pain, Moderate (4-6) Last Admin: 09/06/18 10:29 Dose: 2 mg Documented by: Ondansetron HCl (Zofran) 4 mg IV Q4H PRN PRN Reason: Nausea And Vomiting Last Admin: 09/05/18 11:25 Dose: 4 mg Documented by: Pantoprazole Sodium (Protonix) 40 mg IV QDAY [facility] Last Admin: 09/06/18 10:28 Dose: 40 mg Documented by: Polyethylene Glycol (Miralax [id number]) 17 gm PO QDAY [facility] Last Admin: 09/06/18 10:29 Dose: Not Given Documented by: Sodium Chloride (Sodium Chloride Flush Syringe 10 Ml) 10 ml IV BID [facility] Last Admin: 09/06/18 10:29 Dose: 10 ml Documented by: Sodium Chloride (Sodium Chloride Flush Syringe 10 Ml) 10 ml IV PRN PRN PRN Reason: LINE FLUSH Tramadol HCl (Ultram) 50 mg PO Q6H PRN PRN Reason: Pain, Moderate (4-6) Physical Examination Vital signs: Vital Signs Temp Pulse Resp BP Pulse Ox 97.7 F 98 H 24 142/74 98 09/04/18 14:20 09/04/18 14:20 09/04/18 14:20 09/04/18 14:20 09/04/18 14:20 Results - Laboratory Findings CBC and BMP: 09/06/18 00:30 09/05/18 05:56 PT/INR, D-dimer PT 13.9 Sec. (12.2-14.9) 09/04/18 15:09 INR 1.01 (0.87-1.13) 09/04/18 15:09 Abnormal lab findings: Abnormal Labs 09/04/18 09/04/18 09/04/18 15:09 15:09 22:56 WBC 14.1 H RBC 5.79 H Hgb 15.7 H 15.6 H Hct 47.9 H 48.1 H MCV 83 L MCH 27 L RDW 16.5 H Lymph % (Auto) 12.6 L Baso % (Auto) 2.2 H [place] # Baso # 0.3 H Seg Neutrophils % 77.5 H Seg Neutrophils # 10.9 H Creatinine 0.6 L 09/05/18 09/05/18 09/06/18 05:56 05:56 00:30 WBC 13.9 H 17.9 H RBC 5.48 H 5.78 H Hgb 15.9 H Hct 46.4 H 49.0 H MCV MCH 27 L RDW 16.3 H 16.7 H Lymph % (Auto) Baso % (Auto) [place] # 1.0 H Baso # Seg Neutrophils % 76.0 H Seg Neutrophils # 10.6 H Creatinine 0.5 L
--- NOTE | 2018-09-06 15:47 | Progress Note ---
Assessment and Plan Leukocytosis chronic - worsening no evidence of infection, We will obtain alkaline phosphatase Flow cytology Hematologic consult Chronic pain syndrome with drug seeking behavior add Tramadol outpt pain mgt Obstructive Sleep Apnea Bipap pulm eval outpt sleep study BRBPR GI on board Hemodynamically stable Chronic abd pain Follow-up report of abdominal CT scan supportive care Morbid Obesity loose weight diet modication HTN continue meds Opioid induced constipation laxatives and stool softners. D/c planning in am once cleared by the specialists Disposition Plan: discharge planning Total Time Spent with Patient (Minutes): 30 mins spent Subjective Date of service: 09/06/18 Principal diagnosis: chronic abdominal pain, leukocytosis, obstructive sleep apnea Interval history: Patient still complaining of abdominal pain. No nausea or vomiting. Tolerates his diet.. Has regular bowel movement. Denies any fever. Objective - Exam Narrative Exam: Constitutional: Obese, well-developed. In no distress Head: Normocephalic atraumatic Eyes: Pupils are equal round and reactive to light Nose: No enlarged turbinates, no septal deviation. Mouth: Moist mucous membranes. Neck: Supple no thyromegaly. No bruit. No JVD Heart: Regular rate and rhythm, S1-S2 normal. No rubs murmurs or gallop Lungs: Clear to auscultation bilaterally. no rales or rhonchi Abdomen: Soft, nontender. Bowel sound are present. Midline abdominal surgical scar wound present Extremities: No edema, no cyanosis, no clubbing. Neuro: Alert oriented Oriented x3. No focal sensory or motor deficit. Skin: No rashes or hyperpigmented spots Musculoskeletal system: No joint pain or swelling Hematological: No petechia or subcutanous hemorrhages. Immunological: No multiple septic spots on the skin Lymphatic: No generalized lymphadenopathy Psychiatry: Euthymic. Calm. - Constitutional Vitals: Vital Signs - 12hr 09/06/18 09/06/18 09/06/18 05:37 09:34 11:43 Temperature 97.8 F 98.2 F Pulse Rate 99 H 94 H Respiratory 17 16 Rate Blood Pressure 149/57 130/78 O2 Sat by Pulse 91 95 92 Oximetry - Labs CBC & Chem 7: 09/06/18 00:30 09/05/18 05:56 Labs: Abnormal lab results 09/06/18 Range/Units 00:30 WBC 17.9 H (4.5-11.0) K/mm3 RBC 5.78 H (3.65-5.03) M/mm3 Hgb 15.9 H (11.8-15.2) gm/dl Hct 49.0 H (35.5-45.6) % RDW 16.7 H (13.2-15.2) %
[2018-09-06] MEDS: ULTRAM PO PRN (18:11)
--- NOTE | 2018-09-06 21:41 | Consultation ---
PULMONARY/CRITICAL CARE CONSULTATION CONSULTING PHYSICIAN: Dr. Perla. REASON FOR CONSULTATION: Obstructive sleep apnea/obesity hypoventilation syndrome. CHIEF COMPLAINT AND HISTORY OF PRESENT ILLNESS: As follows: The patient is a 57-year-old male, actually known to me from prior admission, past medical history, significant amongst other things for severe peripheral arterial disease and chronic obstructive lung disease. He came into the hospital and complaining of right-sided abdominal pain, constant, tearing in nature, 9/10. He had nausea and vomiting on the day of presentation. He passed some gross bright red blood while trying to have a bowel movement. He was admitted to the hospital for further evaluation of that and we were asked to assist with management of his obstructive sleep apnea when he is in the hospital. He admits to not using a BiPAP machine at home or a CPAP machine because he states he took it to [facility] a few years back and never got one. He has not done a repeat sleep study, but has one scheduled coming down shortly according to the patient and his caregiver in the room. He admits to nonrestorative sleep and admits to snoring. He does have a remote diagnosis anyway. He is obese. He denies significant weight gain since he last had a sleep study done. He has been seen by the GI team and it appears that there were no plans for endoscopy and it was okay for him to continue his Plavix. With regards to tobacco use, he has a 10+ pack year tobacco smoking history, but denies any current tobacco use/abuse. This really is as much of the history of presentation as I have. PAST MEDICAL HISTORY: Peripheral vascular disease, morbid obesity, obstructive sleep apnea, history of polycythemia, history of chronic leukocytosis, tobacco use disorder, 10+ pack year tobacco smoking history. PAST SURGICAL HISTORY: He has had aortofemoral bypass surgery in the past. MEDICATIONS: He was on at the time I stopped by to see him were reviewed. Pertinent medications included the following: He was on Tylenol 650 mg p.o. q. 4 hours p.r.n. mild pain, Norvasc 10 mg p.o. daily, Lipitor 80 mg p.o. at bedtime, fish oil 1 gram p.o. daily, Neurontin 300 mg p.o. b.i.d., Apresoline 5 mg IV q. 6 hours p.r.n. systolic blood pressure greater than 175. Morphine sulfate 2 mg IV q. 4 hours p.r.n. moderate pain, Zofran 4 mg IV q. 4 hours p.r.n. nausea and vomiting, Protonix 40 mg IV daily, MiraLax 17 grams p.o. daily, tramadol 50 mg p.o. q.6 hours p.r.n. moderate pain. ALLERGIES: IODINE AND IODINE CONTRAST, nature of this allergy is unknown. DIET: Morbidly obese gentleman, no significant weight loss or gain since I have last seen him. FAMILY AND SOCIAL HISTORY: Lives in the community. Ten plus pack year, now remote tobacco smoking history. No current alcohol, tobacco, or illicit drug use or abuse. Family history, otherwise noncontributory. REVIEW OF SYSTEMS: No loss of consciousness. No new onset seizures. No new onset focal weakness. He had the gross hematochezia. Denied melena. He had the abdominal pain. He denies gross hematuria or dysuria. No hematemesis. He had the vomiting. No hemoptysis. He denies heat or cold intolerance. Denies any polydipsia, polyuria. He denies any new lumps, bumps, or swellings or rash on his body. Complete 13-system review of systems obtained. Pertinent positives and/or negatives as in body of history above, otherwise they are noncontributory. PHYSICAL EXAMINATION: VITAL SIGNS: At presentation in the Emergency Room vital signs, afebrile, temperature 97.7 degrees Fahrenheit with a pulse of 98, respiratory rate of 24, blood pressure 142/74, O2 sats were 98%, inspired oxygen concentration at that time was not recorded. When I stopped by to see him, his O2 sats were 98% that was on room air. GENERAL: He is a middle-aged male, morbidly obese. Normocephalic, atraumatic, talking to me in full sentences with normal respiratory effort at rest. HEAD, EYES, EARS, NOSE AND THROAT: He is anicteric. No conjunctival erythema. Oropharynx is a Mallampati #4 oropharynx. Grossly no palpable lymph nodes in the supraclavicular or submandibular lymph node chains. No gross jugular venous distention. He does have a large neck circumference. No thyromegaly. LUNGS: Auscultation of both lung cavanaugh unremarkable. Lungs are clear bilaterally. Good bilateral air movement. HEART: Heart sounds 1 and 2 are heard. They were regular in rate and rhythm at the time of my evaluation without rubs or murmurs. ABDOMEN: Soft, full, bowel sounds are positive, normoactive. He is tender around the epigastrium to palpation, mildly tender. No palpable hepatosplenomegaly. EXTREMITIES: Without overt digital clubbing or cyanosis and no pedal edema. Dorsalis pedis pulses are weakly palpable bilaterally. NEUROLOGIC: Pupils are equal, round, about 4 mm, reactive to light. Extraocular muscle movements are intact. He moves all 4 extremities spontaneously. Power is 5/5 bilaterally. SKIN: He has a midline scar in the upper abdomen all the way down to the groin region. He has a scar in his left leg. No cellulitis, no decubitus also. The skin is of normal turgor. LABORATORY DATA: From my review are as follows: Admission labs, white cell count was 14,100 with a hemoglobin of 15.7, hematocrit of 47.9, platelet count of 273. No band forms. INR is 1.01. Serum sodium 137, potassium 4.3, chloride 99, bicarbonate was 27, BUN 11, creatinine 0.6, glucose was 98. Liver function test within normal limits. Urinalysis was unremarkable, negative for nitrites and leukocyte esterase. Stool was sent for occult blood testing and that was reported as negative. He had a CT scan of the abdomen and pelvis as well as I believe a CT scan of his chest. I do see significant intra-abdominal lipomatosis; however, I do not have an official report on the CT scan of the abdomen and pelvis. The lung windows in the CT abdomen and pelvis are unremarkable. I do not see any obvious free air. I do see what may be a periumbilical bowel loop, unclear if there is any obstruction there. As mentioned, he did have a CT scan of the chest. I do not have any radiologist's interpretation. I have reviewed the CT scan, mild mediastinal lipomatosis, some pretracheal nodes, lung windows may be some apical scarring on the right, but no gross pneumothorax, no gross infiltrates. ASSESSMENT: 1. Abdominal pain. 2. Subjective acute GI bleeding in the form of hematochezia by history. 3. Obstructive sleep apnea. 4. Possible obesity hypoventilation syndrome. 5. Morbid obesity. 6. Peripheral vascular disease, status post aortofemoral bypass. 7. Chronic leukocytosis. 8. Abdominal pain. PLAN: I will go ahead and put him on bilevel positive air pressure ventilation therapy. I will use the settings from the last admission. If I cannot find those, I will go with 06/03 and a backup rate of about 10. Arterial blood gas, I will try to get one to ensure that we are not missing any occult significant acidosis or other lesion and I saw such as evaluate in particular for hypercapnia and to see the degree of compensation if that is present. The abdominal pain workup is ongoing. He may benefit from surgery evaluation as he is tender in the abdomen. We will wait on the official read of the CT abdomen and pelvis. He is appropriately on GI prophylaxis. Weight loss has been recommended, continued tobacco abstinence has been encouraged. Flu and pneumonia vaccination will be addressed per protocol. He has been encouraged to follow up with the outpatient appointment for sleep study. Thank you very much for the consult Dr. Perla. We will follow along. We will make further recommendations as picture progresses/becomes clearer. JOB# [id number] BINU/RAFAT VALDEZ
[2018-09-07] MEDS: MORPHINE IV PRN ×6 (02:13→22:24)
[2018-09-07 02:15] LABS: C-Reactive Protein 1.3 mg/dL (0.00-1.30)
[2018-09-07 06:16] LABS: Alanine Aminotransferase 17 units/L (7-56); Albumin 3.7 g/dL (3.9-5); BUN/Creatinine Ratio 14; Blood Urea Nitrogen 10 mg/dL (9-20); Calcium 8.9 mg/dL (8.4-10.2); Hemolysis Index 5
[2018-09-07] MEDS: NEURONTIN PO SCH ×2 (06:31→18:24)
[2018-09-07] MEDS: NORVASC PO SCH (10:37)
[2018-09-07] MEDS: FISH OIL PO SCH (10:37)
[2018-09-07] MEDS: ULTRAM PO PRN ×2 (10:37→18:24)
[2018-09-07] MEDS: SODIUM CHLORIDE FLUSH SYRINGE 10 ML IV SCH ×2 (10:37→22:25)
[2018-09-07] MEDS: PROTONIX IV SCH (10:38)
[2018-09-07] MEDS: MIRALAX 3350 PO SCH (10:38)
--- NOTE | 2018-09-07 10:55 | Progress Note ---
Assessment and Plan Leukocytosis chronic - worsening no evidence of infection, We will obtain alkaline phosphatase for Flow cytology Hematologic consult d/w pharmacy technician inpatient CT asbdomen and pelvis ( not reported b/c of problem with PACK but paper copy available showed it was unremarkable except for Cholilithiasis and old unbilical hernia) Chronic pain syndrome with drug seeking behavior add Tramadol outpt pain mgt Obstructive Sleep Apnea Bipap pulm eval outpt sleep study BRBPR GI on board Hemodynamically stable Chronic abd pain Follow-up report of abdominal CT scan supportive care Morbid Obesity loose weight diet modication HTN continue meds Opioid induced constipation laxatives and stool softners. D/c planning in am once cleared by the specialists - pharmacy technician inpatient Total Time Spent with Patient (Minutes): 30 mins spent Subjective Date of service: 09/07/18 Principal diagnosis: chronic abdominal pain, leukocytosis, obstructive sleep apnea Interval history: Patient still complaining of abdominal pain. No nausea or vomiting. Tolerates his food with regular BM. Denies any fever. Objective - Exam Narrative Exam: Constitutional: Obese, well-developed. In no distress Head: Normocephalic atraumatic Eyes: Pupils are equal round and reactive to light Nose: No enlarged turbinates, no septal deviation. Mouth: Moist mucous membranes. Neck: Supple no thyromegaly. No bruit. No JVD Heart: Regular rate and rhythm, S1-S2 normal. No rubs murmurs or gallop Lungs: Clear to auscultation bilaterally. no rales or rhonchi Abdomen: Soft, nontender. Bowel sound are present. Midline abdominal surgical scar wound present Extremities: No edema, no cyanosis, no clubbing. Neuro: Alert oriented Oriented x3. No focal sensory or motor deficit. Skin: No rashes or hyperpigmented spots Musculoskeletal system: No joint pain or swelling Hematological: No petechia or subcutanous hemorrhages. Immunological: No multiple septic spots on the skin Lymphatic: No generalized lymphadenopathy Psychiatry: Euthymic. Calm. - Constitutional Vitals: Vital Signs - 12hr 09/06/18 09/06/18 09/07/18 23:00 23:11 00:18 Temperature 98.6 F Pulse Rate 102 H 95 H 96 H Respiratory 18 20 Rate Blood Pressure 146/79 O2 Sat by Pulse 94 92 Oximetry 09/07/18 05:39 Temperature 97.8 F Pulse Rate 92 H Respiratory 22 Rate Blood Pressure 123/78 O2 Sat by Pulse 95 Oximetry - Labs CBC & Chem 7: 09/06/18 00:30 09/07/18 05:16 Labs: Abnormal lab results 09/06/18 09/07/18 Range/Units 15:43 05:16 Creatinine 0.7 L (0.8-1.5) mg/dL C-Reactive Protein 1.60 H (0.00-1.30) mg/dL Albumin 3.7 L (3.9-5) g/dL
--- NOTE | 2018-09-07 12:44 | Progress Note ---
Assessment and Plan Acute on Chronic Abdominal pain. Subjective acute GI bleeding (hematochezia by history but guaiac -ve stools) Obstructive sleep apnea (not compliant with NIV) Possible obesity hypoventilation syndrome. Morbid obesity. Peripheral vascular disease, status post aortofemoral bypass. Chronic leukocytosis. - continue BIPAP while asleep (tolerated it overnight) - CRP and lactic acid unremarkable and i doubt acute abdominal infection - ? ischemic bowel related to artherosclerotic vascular disease - continue prn analgesia - ? surgery evaluation for abdominal pain - prn bronchodilators for SOB or wheezing - continue GI & VTE prophylaxis - continue other care per attending / other consultants ... re-evaluate in am & prn Subjective Date of service: 09/07/18 Principal diagnosis: Abdominal pain; H/O GI bleeding (-ve occult blood); RODY; Morbid obesity Interval history: Patient is seen today for: Acute on Chronic Abdominal pain; Subjective acute GI bleeding (hematochezia by history but guaiac -ve stools); Obstructive sleep apnea (not compliant with NIV); Possible obesity hypoventilation syndrome; Morbid obesity. Seen and examined at bedside; 24hour events reviewed; nursing and respiratory care staff consulted; no adverse overnight events reported to me; resting peacefully in bed; denies acute chest pains or palpitations; still with abdominal pain; No N/V/F/C Objective Vital Signs - 12hr 09/07/18 05:39 Temperature 97.8 F Pulse Rate 92 H Respiratory 22 Rate Blood Pressure 123/78 O2 Sat by Pulse 95 Oximetry Constitutional: no acute distress, alert, other (obese middle aged CM, normocephalic and atraumatic with mildly increased respiratory effort at rest) Eyes: non-icteric ENT: oropharynx moist, other (Mallampati 3-4) Neck: supple, no lymphadenopathy, no JVD, other (large neck circumference) Effort: mildly labored Ascultation: Bilateral: clear, diminished breath sounds, other (prolonged exp phase) Tactile fremitus: Bilateral: normal Cardiovascular: regular rate and rhythm Gastrointestinal: normoactive bowel sounds, soft, tender (mild epigastrium), other (protuberant) Integumentary: normal Extremities: no cyanosis, no edema, pink and warm, pulses normal, no ischemia or petechiae Neurologic: normal mental status, non-focal exam, pupils equal and round, motor strength normal and Psychiatric: mood appropriate, affect normal CBC and BMP: 09/08/18 05:49 09/08/18 05:49 ABG, PT/INR, D-dimer: ABG POC ABG pH 7.399 (7.35-7.45) 09/06/18 15:29 POC ABG pCO2 42.0 (35-45) 09/06/18 15:29 POC ABG pO2 87 (80-105) 09/06/18 15:29 POC ABG HCO3 26.0 09/06/18 15:29 POC ABG Total CO2 27 09/06/18 15:29 POC ABG O2 Sat 97 09/06/18 15:29 PT/INR, D-dimer PT 13.9 Sec. (12.2-14.9) 09/04/18 15:09 INR 1.01 (0.87-1.13) 09/04/18 15:09 Abnormal lab findings: Abnormal Labs 09/04/18 09/04/18 09/04/18 15:09 15:09 22:56 WBC 14.1 H RBC 5.79 H Hgb 15.7 H 15.6 H Hct 47.9 H 48.1 H MCV 83 L MCH 27 L RDW 16.5 H Lymph % (Auto) 12.6 L Baso % (Auto) 2.2 H Barron # Baso # 0.3 H Seg Neutrophils % 77.5 H Seg Neutrophils # 10.9 H Creatinine 0.6 L C-Reactive Protein Albumin 09/05/18 09/05/18 09/06/18 05:56 05:56 00:30 WBC 13.9 H 17.9 H RBC 5.48 H 5.78 H Hgb 15.9 H Hct 46.4 H 49.0 H MCV MCH 27 L RDW 16.3 H 16.7 H Lymph % (Auto) Baso % (Auto) Barron # 1.0 H Baso # Seg Neutrophils % 76.0 H Seg Neutrophils # 10.6 H Creatinine 0.5 L C-Reactive Protein Albumin 09/06/18 09/07/18 15:43 05:16 WBC RBC Hgb Hct MCV MCH RDW Lymph % (Auto) Baso % (Auto) Barron # Baso # Seg Neutrophils % Seg Neutrophils # Creatinine 0.7 L C-Reactive Protein 1.60 H Albumin 3.7 L Chest x-ray: image reviewed Allied health notes reviewed: nursing
--- NOTE | 2018-09-07 19:12 | Event Note ---
Date: 09/07/18 [id number]
--- NOTE | 2018-09-08 00:58 | Consultation ---
REFERRING PHYSICIAN: Lizbeth Anderson MD REASON FOR CONSULTATION: Leukocytosis for a year. HISTORY OF PRESENT ILLNESS: I saw the patient, a 57-year-old male, in the medical floor. The patient has a history of peripheral artery disease, COPD, coronary artery disease, GERD, hypertension, came to the hospital because of abdominal pain and rectal bleed. As per the patient, he had a spider bite on the left foot in 2014 and later at some time, he had what he tries to describe abdominal abscesses and weakening of abdominal wall muscles. He underwent aortobifemoral bypass (other doctor's note) and in 12/2017, he underwent an incarcerated incisional hernia repair. He has been having some discomfort in the foot. He changed his primary doctors and as his WBC count was high, I have been asked to evaluate the patient. At this time, no headache, no visual disturbances, no ear discharge, no chest pain, no vomiting. History of abdominal pain present. History of foot discomfort present. No hematemesis. Had history of hematochezia. The patient had colonoscopy in 2016 as per the notes. The patient was on Plavix and aspirin at home. PAST MEDICAL HISTORY: As above. PAST SURGICAL HISTORY: Hernia surgery, bypass for legs. FAMILY HISTORY: Hypertension. SOCIAL HISTORY: Quit smoking a few years ago. No history of alcohol or drugs. ALLERGIES: CONTRAST. PRESENT MEDICATIONS: Include amlodipine, atorvastatin, fish oil, hydralazine. PHYSICAL EXAMINATION: VITAL SIGNS: Temperature 97, pulse 92, respirations 22, BP 123/78. GENERAL: Slightly obese male. HEENT: No pallor. No icterus. NECK: No neck lymph nodes. HEART: S1, S2. LUNGS: Clear to auscultation. ABDOMEN: Soft. Umbilical area hernia present. EXTREMITIES: No calf tenderness. Has erythema in the feet. NEUROLOGIC: Awake, answers questions appropriately. LABORATORY DATA: White cells 17, hemoglobin 15.9, MCV 49, platelet is 272. Potassium 3.8, creatinine 0.7, bilirubin 0.3. RADIOLOGY: Chest, abdomen and pelvis CT has been done, report is not available. ASSESSMENT: 1. Leukocytosis. This may be reactive in nature. We will look at the smear evaluation by pathologist. 2. Foot pain, history of a recluse spider bite in 2014. 3. History of aortofemoral bypass for leg, peripheral arterial disease. 4. Slightly elevated hemoglobin. The patient is obese. The question arises if he has sleep apnea or COPD is causing his elevated hematocrit and hemoglobin. 5. The patient quit smoking 2 years ago. 6. History of left foot spider bite in 2014. 7. History of hernia surgery at [facility] in 12/2017. 8. History of colonoscopy in 2016. 9. I discussed with the patient regarding causes of high white cell count, primary versus reactive. We will investigate during inpatient stay and then again in the clinic setting. 10. History of hypertension. 11. History of chronic obstructive pulmonary disease. 12. History of coronary artery disease. 13. History of pain issues. JOB# [id number] NM/NTS
[2018-09-08] MEDS: ULTRAM PO PRN ×2 (02:03→13:58)
[2018-09-08] MEDS: MORPHINE IV PRN ×3 (02:43→10:31)
[2018-09-08] MEDS: NEURONTIN PO SCH (06:31)
[2018-09-08 06:53] LABS: Hematocrit 49.9 % (35.5-45.6); Hemoglobin 15.9 gm/dl (11.8-15.2); Mean Corpuscular HGB Conc 32 % (32-34); Mean Corpuscular Volume 85 fl (84-94); Platelet Count 300 K/mm3 (140-440); Red Cell Distribution Width 16.4 % (13.2-15.2)
[2018-09-08 07:15] LABS: Alanine Aminotransferase 17 units/L (7-56); Albumin 3.7 g/dL (3.9-5); BUN/Creatinine Ratio 15; Blood Urea Nitrogen 9 mg/dL (9-20); Calcium 8.9 mg/dL (8.4-10.2); Hemolysis Index 12
[2018-09-08 07:44] VITALS: BP 124/67
[2018-09-08 08:54] LABS: Basophils % (Manual) 0 % (0.0-1.8); Total Cells Counted 100
[2018-09-08 08:56] LABS: Anisocytosis 1+; Platelet Estimate Consistent w Auto
[2018-09-08] MEDS ORDERED: PROTONIX PO SCH (10:00)
[2018-09-08] MEDS: MIRALAX 3350 PO SCH ×2 (10:30→10:37)
[2018-09-08] MEDS: NORVASC PO SCH (10:30)
[2018-09-08] MEDS: FISH OIL PO SCH (10:31)
[2018-09-08] MEDS: SODIUM CHLORIDE FLUSH SYRINGE 10 ML IV SCH (10:37)
--- NOTE | 2018-09-08 12:41 | Discharge Summary ---
Providers - Providers Date of Admission: 09/04/18 22:05 Date of discharge: 09/08/18 Attending physician: NEO HOWELL 09/04/18 22:43 Consult to Physician [CONS] Routine Comment: Consulting Provider: LEONARD WATKINS Physician Instructions: Reason For Exam: hematochezia 09/05/18 13:51 Consult to Physician [CONS] Routine Comment: Consulting Provider: PHILIPP MONK Physician Instructions: Reason For Exam: RODY, OHS 09/07/18 10:55 Consult to Physician [CONS] Routine Comment: Consulting Provider: AYLIN GREENEBRG Physician Instructions: Reason For Exam: persistent Leukocytosis Primary care physician: JONATHAN GEORGE Hospitalization Reason for admission: abdomen, hypertension, COPD, hematochezia Condition: Fair Pertinent studies: CT abdomen and pelvis that was unremarkable for any acute event. CT chest was unremarkable Procedures: None Hospital course: 57-year-old man with a history of peripheral vascular disease, coronary artery disease hypertension, GERD, COPD comes emergency room with complaint of abdominal pain started yesterday, in the mid abdomen, pain felt as if something was ripped, constant, no radiation, intensity 7/10. Today he had one episodes of bright red blood. He had a colonoscopy in 2017 which was negative. GI consult was obtained on admission. This was found to be hemodynamically stable with no change in hemoglobin. Outpatient follow-up with GI was therefore recommended. CT scan of the abdomen and pelvis showed no acute events. Prior cholelithiasis and umbilical hernia with identified. Patient was tolerating his for profile on admission with no nausea or vomiting no diarrhea. Abdomen pain resolved. Patient was commenced on bronchodilators and PPI on admission for a COPD and GERD. The patient was optimized. He is ever been discharged today to follow primary care physician as well as money order clerk in 5 and 7 days respectively. Condition was satisfactory. Disposition: - TO HOME OR SELFCARE Time spent for discharge: >35 mins - Discharge Diagnoses (1) COPD (chronic obstructive pulmonary disease) Status: Acute (2) Acute abdominal pain Status: Acute (3) Hematochezia Status: Acute (4) Leukocytosis Status: Acute (5) Abdominal pain Status: Acute Core Measure Documentation - Palliative Care Palliative Care/ Comfort Measures: Not Applicable - Core Measures Any of the following diagnoses?: none Exam - Physical Exam Narrative exam: Constitutional: Obese, well-developed. In no distress Head: Normocephalic atraumatic Eyes: Pupils are equal round and reactive to light Nose: No enlarged turbinates, no septal deviation. Mouth: Moist mucous membranes. Neck: Supple no thyromegaly. No bruit. No JVD Heart: Regular rate and rhythm, S1-S2 normal. No rubs murmurs or gallop Lungs: Clear to auscultation bilaterally. no rales or rhonchi Abdomen: Soft, nontender. Bowel sound are present. Midline abdominal surgical scar wound present Extremities: No edema, no cyanosis, no clubbing. Neuro: Alert oriented Oriented x3. No focal sensory or motor deficit. Skin: No rashes or hyperpigmented spots Musculoskeletal system: No joint pain or swelling Hematological: No petechia or subcutanous hemorrhages. Immunological: No multiple septic spots on the skin Lymphatic: No generalized lymphadenopathy Psychiatry: Euthymic. Calm. - Constitutional Vitals: Temp Pulse Resp BP Pulse Ox 98.6 F 92 H 20 124/67 92 09/08/18 07:42 09/08/18 10:30 09/08/18 07:42 09/08/18 10:30 09/08/18 07:42 Plan Activity: advance as tolerated Weight Bearing Status: Weight Bear as Tolerated Diet: low fat, low cholesterol, low salt Follow up with: JONATHAN GEORGE MD [Primary Care Provider] - 3-5 Days Prescriptions: RX: Albuterol Sulfate [Proventil Hfa] 13.4 gm IH Q6H #1 hfa.aer.ad RX: Aspirin 81 mg PO DAILY #30 tab.chew RX: Cilostazol [Pletal] 50 mg PO BID 30 Days tablet RX: Clopidogrel Bisulfate [Plavix] 75 mg PO DAILY #30 tablet RX: Gabapentin [Neurontin] 600 mg PO QHS 30 Days capsule RX: Metoprolol [Lopressor TAB] 25 mg PO BID #60 tablet RX: [place]-3/Dha/Epa/Fish Oil [[place] 3 500 Softgel] 1 each PO BID #60 capsule RX: oxyCODONE /ACETAMINOPHEN [Percocet 5/325 mg] 1 tab PO Q6HR PRN #8 tablet PRN Reason: Pain RX: Tiotropium [place] [Spiriva] 2 puff IH DAILY #30 cap.w.dev
--- NOTE | 2018-09-08 12:45 | Progress Note ---
Assessment and Plan Acute on Chronic Abdominal pain. Subjective acute GI bleeding (hematochezia by history but guaiac -ve stools) Obstructive sleep apnea (not compliant with NIV) Possible obesity hypoventilation syndrome. Morbid obesity. Peripheral vascular disease, status post aortofemoral bypass. Chronic leukocytosis. - continue BIPAP while asleep (tolerated it overnight) - CRP and lactic acid unremarkable and i doubt acute abdominal infection - continue prn analgesia - prn bronchodilators for SOB or wheezing - continue GI & VTE prophylaxis - continue other care per attending / other consultants ... re-evaluate in am & prn Subjective Date of service: 09/08/18 Principal diagnosis: Abdominal pain; H/O GI bleeding (-ve occult blood); RODY; Morbid obesity Interval history: Patient is seen today for: Acute on Chronic Abdominal pain; Subjective acute GI bleeding (hematochezia by history but guaiac -ve stools); Obstructive sleep apnea (not compliant with NIV); Possible obesity hypoventilation syndrome; Morbid obesity. Seen and examined at bedside; 24hour events reviewed; nursing and respiratory care staff consulted; no adverse overnight events reported to me; resting peacefully in bed; feels better; abdominal pain is better; tolerating BIPAP but tenuously; No chest pains or palpitations reported Objective Vital Signs - 12hr 09/08/18 09/08/18 09/08/18 04:53 07:42 10:30 Temperature 98.3 F 98.6 F Pulse Rate 87 92 H 92 H Respiratory 20 20 Rate Blood Pressure 137/78 124/67 124/67 O2 Sat by Pulse 95 92 Oximetry Constitutional: no acute distress, alert, other (obese middle aged CM, normocephalic and atraumatic with mildly increased respiratory effort at rest) Eyes: non-icteric ENT: oropharynx moist, other (Mallampati 3-4) Neck: supple, no lymphadenopathy, no JVD, other (large neck circumference) Effort: mildly labored Ascultation: Bilateral: clear, diminished breath sounds, other (prolonged exp phase) Percussion: Bilateral: not dull Cardiovascular: regular rate and rhythm Gastrointestinal: normoactive bowel sounds, soft, tender (mild epigastrium), other (protuberant) Integumentary: normal Extremities: no cyanosis, no edema, pink and warm, pulses normal, no ischemia or petechiae Neurologic: normal mental status, non-focal exam, pupils equal and round, motor strength normal and Psychiatric: mood appropriate, affect normal CBC and BMP: 09/08/18 05:49 09/08/18 05:49 ABG, PT/INR, D-dimer: ABG POC ABG pH 7.399 (7.35-7.45) 09/06/18 15:29 POC ABG pCO2 42.0 (35-45) 09/06/18 15:29 POC ABG pO2 87 (80-105) 09/06/18 15:29 POC ABG HCO3 26.0 09/06/18 15:29 POC ABG Total CO2 27 09/06/18 15:29 POC ABG O2 Sat 97 09/06/18 15:29 PT/INR, D-dimer PT 13.9 Sec. (12.2-14.9) 09/04/18 15:09 INR 1.01 (0.87-1.13) 09/04/18 15:09 Abnormal lab findings: Abnormal Labs 09/04/18 09/04/18 09/04/18 15:09 15:09 22:56 WBC 14.1 H RBC 5.79 H Hgb 15.7 H 15.6 H Hct 47.9 H 48.1 H MCV 83 L MCH 27 L RDW 16.5 H Lymph % (Auto) 12.6 L Baso % (Auto) 2.2 H [place] # Baso # 0.3 H Seg Neutrophils % 77.5 H Seg Neuts % (Manual) Seg Neutrophils # 10.9 H Seg Neutrophils # Man Eosinophils # (Manual) Creatinine 0.6 L Glucose POC Glucose C-Reactive Protein Albumin 09/05/18 09/05/18 09/06/18 05:56 05:56 00:30 WBC 13.9 H 17.9 H RBC 5.48 H 5.78 H Hgb 15.9 H Hct 46.4 H 49.0 H MCV MCH 27 L RDW 16.3 H 16.7 H Lymph % (Auto) Baso % (Auto) [place] # 1.0 H Baso # Seg Neutrophils % 76.0 H Seg Neuts % (Manual) Seg Neutrophils # 10.6 H Seg Neutrophils # Man Eosinophils # (Manual) Creatinine 0.5 L Glucose POC Glucose C-Reactive Protein Albumin 02/09/07/18 09/07/18 15:43 05:16 22:19 WBC RBC Hgb Hct MCV MCH RDW Lymph % (Auto) Baso % (Auto) [place] # Baso # Seg Neutrophils % Seg Neuts % (Manual) Seg Neutrophils # Seg Neutrophils # Man Eosinophils # (Manual) Creatinine 0.7 L Glucose POC Glucose 123 H C-Reactive Protein 1.60 H Albumin 3.7 L 09/08/18 09/08/18 05:49 05:49 WBC 18.0 H RBC 5.90 H Hgb 15.9 H Hct 49.9 H MCV MCH 27 L RDW 16.4 H Lymph % (Auto) Baso % (Auto) [place] # Baso # Seg Neutrophils % Seg Neuts % (Manual) 77.0 H Seg Neutrophils # Seg Neutrophils # Man 13.9 H Eosinophils # (Manual) 0.7 H Creatinine 0.6 L Glucose 101 H POC Glucose C-Reactive Protein Albumin 3.7 L Allied health notes reviewed: nursing
--- NOTE | 2018-09-08 14:13 | Cat Scan Report ---
FINAL REPORT EXAM: CT CHEST WO CON HISTORY: chest pain TECHNIQUE: Standard unenhanced CT of the chest at 2.5 mm axial increments. Coronal and sagittal mary jane nstruction was also obtained. PRIORS: None. FINDINGS: The lung parenchyma are expanded and clear with no evidence for parenchymal nodules, infiltrates, vas cular congestion, pleural effusion, or pneumothorax. There is no evidence for mediastinal, hilar, or axillary adenopathy. The esophagus is collapsed. Th e trachea is midline. Cardiovascular structures are within normal limits. Cardiac size and aorta are normal. Images through the lung bases include upper abdomen which show no abnormality of the visualized abdom inal viscera. Bony structures show no focal abnormalities. No evidence for bony fracture is seen. IMPRESSION: No acute abnormality identified in the chest. Negative exam.
--- NOTE | 2018-09-09 16:32 | Cat Scan Report ---
FINAL REPORT EXAM: CT ABDOMEN PELVIS WO CON HISTORY: Abdominal Pain TECHNIQUE: Standard unenhanced CT of the abdomen and pelvis. Coronal and sagittal reconstruction was also performed. PRIORS: CT a/P 06/27/2018 FINDINGS: Within the abdomen, the liver, spleen, pancreas, adrenal glands, and kidneys are unremarkable. Gallst ones in the gallbladder again noted. No evidence for retroperitoneal or pelvic lymphadenopathy is see n. The bowel loops have normal caliber. No soft tissue mass, fluid collection, inflammatory change, or free air is seen within the abdomen or pelvis. The appendix is normal. Midline ventral periumbilical hernia is again noted, unchanged, containing a normal loop of bowel. En dovascular stent is in place in the right common iliac artery. Patient has an aortobifemoral bypass a lso in place. Within the pelvis, the bladder is unremarkable. The prostate is normal. No evidence for mass or lymph adenopathy is seen in the pelvis. Images through the upper abdomen include the lung bases which are expanded and clear. Bony structures show a prior hardware tract in the right proximal femur. IMPRESSION: No acute intra-abdominal process noted. Cholelithiasis again noted. Periumbilical hernia is unchanged .
== END 2018-09-08 14:45 | disposition home or self-care (01) | DRG 378 ==
LOC: ED 14:07 → 4A 22:05
PROVIDERS: ADMIT Internal Medicine; ATTEND Family Medicine
PROC: 4A033R1 Measurement of Arterial Saturation, Peripheral, Percutaneous Approach (ICD-10-PCS; principal; 2018-09-06)
PROC: 5A09357 Assistance with Respiratory Ventilation, Less than 24 Consecutive Hours, Continuous Positive Airway Pressure (ICD-10-PCS; 2018-09-06)
DX: K92.1 Melena (principal); Z68.41 Body mass index [BMI] 40.0-44.9, adult; K80.20 Calculus of gallbladder without cholecystitis without obstruction; I25.10 Atherosclerotic heart disease of native coronary artery without angina pectoris; I73.9 Peripheral vascular disease, unspecified; D72.829 Elevated white blood cell count, unspecified; T40.2X5A Adverse effect of other opioids, initial encounter; I10 Essential (primary) hypertension; J44.9 Chronic obstructive pulmonary disease, unspecified; K21.9 Gastro-esophageal reflux disease without esophagitis; M19.90 Unspecified osteoarthritis, unspecified site; G47.33 Obstructive sleep apnea (adult) (pediatric); G89.4 Chronic pain syndrome; K59.03 Drug induced constipation; E66.01 Morbid (severe) obesity due to excess calories; Y92.89 Other specified places as the place of occurrence of the external cause; Z82.49 Family history of ischemic heart disease and other diseases of the circulatory system; Z91.041 Radiographic dye allergy status; Z79.899 Other long term (current) drug therapy; Z79.82 Long term (current) use of aspirin; I25.2 Old myocardial infarction; Z95.5 Presence of coronary angioplasty implant and graft; Z87.891 Personal history of nicotine dependence; Z71.3 Dietary counseling and surveillance
CPT/HCPCS: 36415; 36600; 71250; 74176; 80048; 80053; 80076; 81001; 82140; 82270; 82803; 82962; 83690; 84075; 85007; 85014; 85018; 85025; 85027; 85610; 86140; 94660; 96361; 96374; 96375; 96376; G0378; A9270-GY; C9113; J0360; J1170; J2270; J2405; J2765; J3010; J7030

== ENCOUNTER 2019-05-07 03:19 | Observation (INO) | payer MEDICARE ==
[2019-05-07] MEDS ORDERED: DILAUDID ONE (03:30)
[2019-05-07] MEDS ORDERED: DILAUDID IV ONE (03:30)
[2019-05-07] MEDS ORDERED: NACL 0.9% 500 ML 500 ML IV ONE (03:36)
[2019-05-07] MEDS ORDERED: ZOFRAN ONE (03:38)
[2019-05-07] MEDS ORDERED: HALDOL IM STA (03:45)
[2019-05-07] MEDS ORDERED: ZOFRAN IV ONE (03:50)
--- NOTE | 2019-05-07 03:53 | Emergency Department Report ---
ED General Adult HPI - General Chief complaint: Abdominal Pain Stated complaint: ABD PAIN/POSS HERNIA Time Seen by Provider: 05/07/19 03:31 Source: patient, RN notes reviewed, old records reviewed Limitations: Physical Limitation - History of Present Illness Initial comments: This is a 58-year-old gentleman. This patient is not known to this provider previously. Past medical history includes multiple chronic abdominal hernias, aortofemoral bypass, iliac stent, chronic pain, COPD, obesity, abdominal adhesions He presents to the ER today with complaint of sharp tearing abdominal pain. He feels like his intestines "are about to burst." Apparently, he had a similar presentation in August of this year. At that time, he had a CT scan of the abdomen and pelvis which showed no acute findings. And the patient states he is able to tolerate IV contrast. He does not endorse anaphylactic or anaphylactoid symptoms. The patient is in moderate distress. -: Sudden Location: abdomen Radiation: non-radiation Quality: other Consistency: constant Improves with: none Worsens with: movement - Related Data Home Medications Medication Instructions Recorded Confirmed Last Taken Atorvastatin Calcium [Lipitor] 80 mg PO QDAY 01/05/18 09/04/18 Unknown Ubidecarenone [Co Q-10] 10 mg PO BID 09/04/18 09/04/18 Unknown Previous Rx's Medication Instructions Recorded Last Taken Type Gabapentin [Neurontin] 300 mg PO BID@0700,1800 30 Days 06/29/18 Unknown Rx capsule Albuterol Sulfate [Proventil Hfa] 13.4 gm IH Q6H #1 hfa.aer.ad 09/08/18 Unknown Rx Aspirin 81 mg PO DAILY #30 tab.chew 09/08/18 Unknown Rx Cilostazol [Pletal] 50 mg PO BID 30 Days tablet 09/08/18 Unknown Rx Clopidogrel Bisulfate [Plavix] 75 mg PO DAILY #30 tablet 09/08/18 Unknown Rx Gabapentin [Neurontin] 600 mg PO QHS 30 Days capsule 09/08/18 Unknown Rx Metoprolol [Lopressor TAB] 25 mg PO BID #60 tablet 09/08/18 Unknown Rx Morris-3/Dha/Epa/Fish Oil [Morris 3 1 each PO BID #60 capsule 09/08/18 Unknown Rx 500 Softgel] Tiotropium [place] [Spiriva] 2 puff IH DAILY #30 cap.w.dev 09/08/18 Unknown Rx oxyCODONE /ACETAMINOPHEN [Percocet 1 tab PO Q6HR PRN #8 tablet 09/08/18 Unknown Rx 5/325 mg] Allergies Allergy/AdvReac Type Severity Reaction Status Date / Time Iodinated Contrast Media AdvReac Unknown Verified 09/04/18 14:20 ED Review of Systems ROS: Stated complaint: ABD PAIN/POSS HERNIA Other details as noted in HPI Constitutional: malaise Eyes: denies: eye discharge ENT: denies: congestion Respiratory: denies: wheezing Cardiovascular: denies: syncope Gastrointestinal: nausea Neurological: weakness Psychiatric: anxiety ED Past Medical Hx - Past Medical History Previous Medical History?: Yes Hx Hypertension: Yes Hx Heart Attack/AMI: Yes Hx Congestive Heart Failure: No Hx Diabetes: No Hx GERD: Yes Hx Liver Disease: No Hx Renal Disease: No Hx Sickle Cell Disease: No Hx Arthritis: Yes Hx Asthma: No Hx COPD: Yes Additional medical history: Severe PAD of bilateral legs. Status post vascular surgery for for abdominal bypass to legs. Hernia - Surgical History Past Surgical History?: Yes Hx Coronary Stent: Yes (vascular stents) Additional Surgical History: abdominal/Vascular surgery - Social History Smoking Status: Never Smoker Substance Use Type: None - Medications Home Medications: Home Medications Medication Instructions Recorded Confirmed Last Taken Type Atorvastatin Calcium [Lipitor] 80 mg PO QDAY 01/05/18 09/04/18 Unknown History Gabapentin [Neurontin] 300 mg PO BID@0700,1800 30 Days 06/29/18 09/04/18 Unknown Rx capsule Ubidecarenone [Co Q-10] 10 mg PO BID 09/04/18 09/04/18 Unknown History Albuterol Sulfate [Proventil Hfa] 13.4 gm IH Q6H #1 hfa.aer.ad 09/08/18 Unknown Rx Aspirin 81 mg PO DAILY #30 tab.chew 09/08/18 Unknown Rx Cilostazol [Pletal] 50 mg PO BID 30 Days tablet 09/08/18 Unknown Rx Clopidogrel Bisulfate [Plavix] 75 mg PO DAILY #30 tablet 09/08/18 Unknown Rx Gabapentin [Neurontin] 600 mg PO QHS 30 Days capsule 09/08/18 Unknown Rx Metoprolol [Lopressor TAB] 25 mg PO BID #60 tablet 09/08/18 Unknown Rx [place]-3/Dha/Epa/Fish Oil [[place] 3 1 each PO BID #60 capsule 09/08/18 Unknown Rx 500 Softgel] Tiotropium [place] [Spiriva] 2 puff IH DAILY #30 cap.w.dev 09/08/18 Unknown Rx oxyCODONE /ACETAMINOPHEN [Percocet 1 tab PO Q6HR PRN #8 tablet 09/08/18 Unknown Rx 5/325 mg] ED Physical Exam - General Limitations: Physical Limitation General appearance: alert, anxious, in distress, obese - Head Head exam: Present: atraumatic, normocephalic - Eye Eye exam: Present: normal appearance, EOMI. Absent: nystagmus - ENT ENT exam: Present: normal exam, normal orophraynx, mucous membranes moist, normal external ear exam - Neck Neck exam: Present: normal inspection, full ROM. Absent: tenderness, meningismus - Respiratory Respiratory exam: Present: decreased breath sounds. Absent: respiratory distress - Cardiovascular Cardiovascular Exam: Present: regular rate, normal rhythm, normal heart sounds. Absent: bradycardia, tachycardia, irregular rhythm, systolic murmur, diastolic murmur, rubs, gallop - GI/Abdominal GI/Abdominal exam: Present: soft, distended, tenderness (there is mild diffuse abdominal wall tenderness), hernia, other (patient has a nontender reducible umbilical hernia. Ventral wall hernias noted, they also appear to be nontender and are reducible. The abdomen itself is grossly distended and somewhat te nse.). Absent: rebound, rigid - Rectal Rectal exam: Present: deferred - Extremities Exam Extremities exam: Present: normal inspection (chronic venous stasis noted.), full ROM, other (2+ pulses noted in the bilateral upper extremities. Pulses are appreciated in the bilateral lower extremities. Pelvis is stable, there is no long bony tenderness. Muscular compartments are soft.) - Back Exam Back exam: Present: normal inspection - Neurological Exam Neurological exam: Present: alert, other (there is no facial droop. The tongue is midline. The extraocular movements are intact bilaterally. Moving 4 extremities spontaneously. Patient appears anxious.) - Psychiatric Psychiatric exam: Present: anxious - Skin Skin exam: Present: warm, dry, intact, normal color. Absent: rash ED Course Vital Signs 05/07/19 05/07/19 05/07/19 03:24 03:36 05:13 Temperature 98.6 F Pulse Rate 89 99 H Respiratory 20 24 20 Rate Blood Pressure 187/99 178/88 O2 Sat by Pulse 96 94 96 Oximetry 05/07/19 05:15 Temperature Pulse Rate 101 H Respiratory 26 H Rate Blood Pressure 152/84 O2 Sat by Pulse 96 Oximetry - Reevaluation(s) Reevaluation #1: 05/07/19 03:51 Differential diagnosis, including not limited to: Obstruction, constipation, volvulus, incarcerated hernia, strangulated hernia, narcotic bowel syndrome Assessment and plan: 58-year-old gentleman morbidly obese with multiple medical issues, with a primary complaint of sharp tearing abdominal pain. He does appear to have a number of hernias, however, they are not tense, not especially tender, and when the patient relaxes, they are reducible. CT scan obtained in August 2018 was negative for acute surgical disease. We will treat his symptoms aggressively. So far, he has received 1 mg of hydromorphone, and is quite anxious and distressed. Uncertain if there is an anxiety component. Haloperidol will be ordered for symptom control, and endorsement of nausea. Patient has given verbal consent for IV contrast enhanced CT scan. We will reassess after data points have resulted. Reevaluation #2: 05/07/19 04:31 Leukocytosis is reviewed and appreciated. This is likely a stress reaction. CT scan pending. Reevaluation #3: 05/07/19 04:38 Patient quite anxious and required multiple medications, including hydromorphon e, haloperidol, and ultimately, ketamine, 30 mg. Currently, he is much more comfortable, and not in any acute distress. Abdomen soft and benign. Pressed on his multiple hernias, which were nontender and easily reducible. CT scan pending. Reevaluation #4: 05/07/19 05:44 blood pressure improved no vomiting belly soft hernias reducible ct abd pelvis pending formal read Reevaluation #5: 05/07/19 05:55 CT scan suggests possible obstructive process. However, I have reduced the patient's hernia and appears to be quite comfortable. His abdomen is less distended than previously and he is resting comfortably. Contacted the general surgeon on-call, Dr. John Garibay, who is going to see the patient shortly. He is in agreement with nasogastric tube. Recommends withholding antibiotics at this time so we do not masked symptoms. Do not suspect active sepsis at this time, but rather stress demargination secondary to pain from the aforementioned. The general surgeon on-call requested a bariatric consultation, which I have placed as a courtesy, but I will defer to him to further follow it up. The case was presented to the Hospital physician, Dr. Man, who has accepted the patient to his service. ED Medical Decision Making - Lab Data Result diagrams: 05/07/19 03:46 05/07/19 03:46 Vital Signs 05/07/19 03:24 Temperature 98.6 F Pulse Rate 89 Respiratory 20 Rate Blood Pressure 187/99 O2 Sat by Pulse 96 Oximetry - EKG Data -: EKG Interpreted by Mo EKG shows normal: sinus rhythm Rate: normal - EKG Data 05/07/19 03:53 The EKG shows a sinus rhythm, 93 bpm, normal axis, QTC is 436 ms, there is motion artifact, there is no endorsement of chest pain, the EKG is abnormal, the EKG is not consistent with ST elevation myocardial infarction. - Radiology Data Radiology results: pending, report reviewed, image reviewed Print Report Referring Physician: ALEN SIMMONS Patient Name: MATI CASTILLO Date of : 1960 Sex: Male Report Date: 2019-05-07 Report Status: [place] [address] Cat Scan Report Signed Patient: MATI CASTILLO MR#: [id number] : 1960 Acct:[id number] Age/Sex: 58 / M ADM Date: 05/07/19 Loc: ED Attending Dr: Ordering Physician: ALEN SIMMONS MD Date of Service: 05/07/19 Procedure(s): CT abdomen pelvis w con Accession Number(s): [id number] cc: ALEN SIMMONS MD CT abdomen pelvis w con INDICATION / CLINICAL INFORMATION: abd pain hernia incarcerateed vs strangulted. TECHNIQUE: All CT scans at this location are performed using CT dose reduction for ALARA by means of automated exposure control. COMPARISON: 09/04/2018 FINDINGS: Lower lungs are clear. ABDOMEN: Multiple gallstones are visualized. No biliary dilatation. A small cyst is seen in the liver. Hepatic parenchyma is hypoattenuated due to fatty infiltration. The spleen, pancreas and kidneys are normal. The ventral hernia contains small bowel which is dilated proximal to the hernia. The herniated bowel mccollum are sli ghtly thickened suggesting at least some degree of bowel wall edema. Pelvis: Right iliac arterial stent. No dependent fluid collections are seen in the pelvis. No pelvic inflammatory findings. No skeletal abnormality of significance. IMPRESSION: 1. Ventral hernia with evidence of small bowel obstruc tion. There is bowel wall edema involving the herniated small bowel loops. 2. Cholelithiasis. 3. Fatty liver. Signer Name: Adriano Whalen MD Signed: 05/07/2019 5:39 AM Workstation Name: [id number] Transcribed By: GA Dictated By: Adriano Whalen MD Electronically Authenticated By: Adriano Whalen MD Signed Date/Time: 05/07/19 0539 Critical care attestation.: If time is entered above; I have spent that time in minutes in the direct care of this critically ill patient, excluding procedure time. ED Disposition Clinical Impression: Morbid obesity, Acute abdominal pain, Leukocytosis Disposition: 09 OP ADMIT IP TO THIS HOSP Is pt being admited?: Yes Condition: Stable Referrals: PRIMARY CARE, [Primary Care Provider] - 3-5 Days
[2019-05-07 04:00] LABS: Basophils # (Auto) 0.1 K/mm3 (0.0-0.1); Basophils % (Auto) 0.8 % (0.0-1.8); Eosinophils # (Auto) 0.4 K/mm3 (0.0-0.4); Eosinophils % (Auto) 2.4 % (0.0-4.3); Hematocrit 47.2 % (35.5-45.6); Hemoglobin 15.7 gm/dl (11.8-15.2); Lymphocytes # (Auto) 3.1 K/mm3 (1.2-5.4); Lymphocytes % (Auto) 19.1 % (13.4-35.0); Mean Corpuscular HGB Conc 33 % (32-34); Mean Corpuscular Volume 85 fl (84-94); Monocytes # (Auto) 1.4 K/mm3 (0.0-0.8); Monocytes % (Auto) 8.8 % (0.0-7.3); Platelet Count 305 K/mm3 (140-440); Red Blood Count 5.56 M/mm3 (3.65-5.03); Red Cell Distribution Width 16.4 % (13.2-15.2)
[2019-05-07] MEDS ORDERED: KETALAR IV ONE (04:14)
[2019-05-07] MEDS ORDERED: KETALAR ONE (04:17)
[2019-05-07 04:20] LABS: Alanine Aminotransferase 22 units/L (7-56); Albumin 4.1 g/dL (3.9-5); BUN/Creatinine Ratio 14; Blood Urea Nitrogen 11 mg/dL (9-20); Calcium 9.3 mg/dL (8.4-10.2); Hemolysis Index 4
[2019-05-07] MEDS ORDERED: K-DUR PO ONE (04:30)
[2019-05-07] MEDS ORDERED: NACL 0.9% 500 ML 500 ML IV SCH (05:00)
[2019-05-07] MEDS: KCL 10MEQ/100ML 10 MEQ/100 ML BAG IV SCH ×2 (05:07→06:19)
--- NOTE | 2019-05-07 05:44 | Cat Scan Report ---
CT abdomen pelvis w con INDICATION / CLINICAL INFORMATION: abd pain hernia incarcerateed vs strangulted. TECHNIQUE: All CT scans at this location are performed using CT dose reduction for ALARA by means of automated e xposure control. COMPARISON: 09/04/2018 FINDINGS: Lower lungs are clear. ABDOMEN: Multiple gallstones are visualized. No biliary dilatation. A small cyst is seen in the liver. Hepatic parenchyma is hypoattenuated due to fatty infiltration. The spleen, pancreas and kidneys are normal. The ventral hernia contains small bowel which is dilated proximal to the hernia. The herniated bowel mccollum are slightly thickened suggesting at least some degree of bowel wall edema. Pelvis: Right iliac arterial stent. No dependent fluid collections are seen in the pelvis. No pelvic inflammatory findings. No skeletal abnormality of significance. IMPRESSION: 1. Ventral hernia with evidence of small bowel obstruction. There is bowel wall edema involving the h erniated small bowel loops. 2. Cholelithiasis. 3. Fatty liver. Signer Name: Adriano Whalen MD Signed: 05/07/2019 5:39 AM Workstation Name: [id number]
[2019-05-07] MEDS ORDERED: LIDOCAINE VISCOUS 2% PO ONE (05:53)
[2019-05-07] MEDS ORDERED: XYLOCAINE TOPICAL 4% TP ONE (05:53)
[2019-05-07] MEDS ORDERED: SUBLIMAZE IV ONE (05:53)
[2019-05-07] MEDS ORDERED: TYLENOL PO PRN (06:09)
--- NOTE | 2019-05-07 06:15 | History and Physical Report ---
History of Present Illness Date of examination: 05/07/19 Date of admission: 05/07/19 Chief complaint: bdominal pains2 days History of present illness: Pt is a 58-year-old male with PMHx of CAD, PVD (s/p femoral bypass, iliac stent), HTN, HDL, GERD, multiple abdominal hernias/SBO (s/p abdominal sx x3), COPD, obesity, chronic pain who presents to the ER for complaint of abdominal pain x 2 day. Pt sates that the pain is located in the middle of his abdomen, it it a sharp tearing pain similar to the pain he had before when he was diagnosed with abdominal obstruction. Pt reports nausea, denies vomiting, denies headache, denies dizziness, denies fever or chills. In the ER, he had a CT scan of the abdomen and pelvis that showed ventral hernia with evidence of s mall bowel obstruction. There is bowel wass edema involving small bowel loods, cholelithiasis, fatty liver, surgery was called, and pt is admitted for management of SBO. Medications and Allergies Allergies Allergy/AdvReac Type Severity Reaction Status Date / Time Iodinated Contrast Media AdvReac Unknown Verified 09/04/18 14:20 Home Medications Medication Instructions Recorded Confirmed Last Taken Type Atorvastatin Calcium [Lipitor] 80 mg PO QDAY 01/05/18 09/04/18 Unknown History Gabapentin [Neurontin] 300 mg PO BID@0700,1800 30 Days 06/29/18 09/04/18 Unknown Rx capsule Ubidecarenone [Co Q-10] 10 mg PO BID 09/04/18 09/04/18 Unknown History Albuterol Sulfate [Proventil Hfa] 13.4 gm IH Q6H #1 hfa.aer.ad 09/08/18 Unknown Rx Aspirin 81 mg PO DAILY #30 tab.chew 09/08/18 Unknown Rx Cilostazol [Pletal] 50 mg PO BID 30 Days tablet 09/08/18 Unknown Rx Clopidogrel Bisulfate [Plavix] 75 mg PO DAILY #30 tablet 09/08/18 Unknown Rx Gabapentin [Neurontin] 600 mg PO QHS 30 Days capsule 09/08/18 Unknown Rx Metoprolol [Lopressor TAB] 25 mg PO BID #60 tablet 09/08/18 Unknown Rx [place]-3/Dha/Epa/Fish Oil [[place] 3 1 each PO BID #60 capsule 09/08/18 Unknown Rx 500 Softgel] Tiotropium [place] [Spiriva] 2 puff IH DAILY #30 cap.w.dev 09/08/18 Unknown Rx oxyCODONE /ACETAMINOPHEN [Percocet 1 tab PO Q6HR PRN #8 tablet 09/08/18 Unknown Rx 5/325 mg] Active Meds: Active Medications Acetaminophen (Tylenol) 650 mg PO Q4H PRN PRN Reason: Pain MILD(1-3)/Fever >100.5/NELSON Famotidine (Pepcid) 20 mg IV BID ASCENCION Potassium Chloride (Kcl 10meq/100ml) 10 meq in 100 mls @ 100 mls/hr IV Q1H ASCENCION Stop: 05/07/19 06:59 Last Admin: 05/07/19 05:07 Dose: 100 mls/hr Documented by: Sodium Chloride (Nacl 0.9% 500 Ml) 500 mls @ 50 mls/hr IV DIRECT ASCENCION Last Admin: 05/07/19 05:08 Dose: 50 mls/hr Documented by: Potassium Chloride/Dextrose/Sod Cl (D5w/0.45% Nacl/Kcl 20 Meq) 20 meq in 1,000 mls @ 125 mls/hr IV DIRECT ASCENCION Morphine Sulfate (Morphine) 2 mg IV Q4H PRN PRN Reason: Pain, Moderate (4-6) Ondansetron HCl (Zofran) 4 mg IV Q8H PRN PRN Reason: Nausea And Vomiting Exam - Constitutional Vitals: Temp Pulse Resp BP Pulse Ox 98.6 F 101 H 26 H 152/84 96 05/07/19 03:24 05/07/19 05:15 05/07/19 05:15 05/07/19 05:15 05/07/19 05:15 Results - Labs CBC & Chem 7: 05/07/19 03:46 05/07/19 03:46 Labs: Laboratory Last Values WBC 16.4 K/mm3 (4.5-11.0) H 05/07/19 03:46 RBC 5.56 M/mm3 (3.65-5.03) H 05/07/19 03:46 Hgb 15.7 gm/dl (11.8-15.2) H 05/07/19 03:46 Hct 47.2 % (35.5-45.6) H 05/07/19 03:46 MCV 85 fl (84-94) 05/07/19 03:46 MCH 28 pg (28-32) 05/07/19 03:46 MCHC 33 % (32-34) 05/07/19 03:46 RDW 16.4 % (13.2-15.2) H 05/07/19 03:46 Plt Count 305 K/mm3 (140-440) 05/07/19 03:46 Lymph % (Auto) 19.1 % (13.4-35.0) 05/07/19 03:46 [place] % (Auto) 8.8 % (0.0-7.3) H 05/07/19 03:46 Eos % (Auto) 2.4 % (0.0-4.3) 05/07/19 03:46 Baso % (Auto) 0.8 % (0.0-1.8) 05/07/19 03:46 Lymph # 3.1 K/mm3 (1.2-5.4) 05/07/19 03:46 Tyler # 1.4 K/mm3 (0.0-0.8) H 05/07/19 03:46 Eos # 0.4 K/mm3 (0.0-0.4) 05/07/19 03:46 Baso # 0.1 K/mm3 (0.0-0.1) 05/07/19 03:46 Seg Neutrophils % 68.9 % (40.0-70.0) 05/07/19 03:46 Seg Neutrophils # 11.3 K/mm3 (1.8-7.7) H 05/07/19 03:46 Sodium 137 mmol/L (137-145) 05/07/19 03:46 Potassium 3.4 mmol/L (3.6-5.0) L 05/07/19 03:46 Chloride 96.7 mmol/L (98-107) L 05/07/19 03:46 Carbon Dioxide 27 mmol/L (22-30) 05/07/19 03:46 Anion Gap 17 mmol/L 05/07/19 03:46 BUN 11 mg/dL (9-20) 05/07/19 03:46 Creatinine 0.8 mg/dL (0.8-1.5) 05/07/19 03:46 Estimated GFR > 60 ml/min 05/07/19 03:46 BUN/Creatinine Ratio 14 % 05/07/19 03:46 Glucose 142 mg/dL (75-100) H 05/07/19 03:46 Calcium 9.3 mg/dL (8.4-10.2) 05/07/19 03:46 Magnesium 2.10 mg/dL (1.7-2.3) 05/07/19 03:46 Total Bilirubin 0.20 mg/dL (0.1-1.2) 05/07/19 03:46 AST 20 units/L (5-40) 05/07/19 03:46 ALT 22 units/L (7-56) 05/07/19 03:46 Alkaline Phosphatase 88 units/L (35-129) 05/07/19 03:46 Total Creatine Kinase 77 units/L (55-170) 05/07/19 03:46 Total Protein 7.8 g/dL (6.3-8.2) 05/07/19 03:46 Albumin 4.1 g/dL (3.9-5) 05/07/19 03:46 Albumin/Globulin Ratio 1.1 % 05/07/19 03:46 Assessment and Plan Assessment and plan: 1. Small bowel obstruction 2. Abdominal pain (due to above) 3. Leukocytosis 4. Hypokalemia 5. Obesity 6. H/o prior abdominal surgeries due to ventral hernia 7. H/o CAD 8. Accelerated HTN 9. GERD 10. H/o PVD 11. H/o COPD Plan Pt is admitted to surgical floor Surgery is consult for management SBO Keep NPO for Bowel decompression Pain control PRN for abdominal pain Protonix 40 IV Qday IVF with D51/2 with 20 mEQ at 125 ml Hydralazine IV PRN for BP control Resume home meds when ok with surgery DVT prophylaxis with SD Advance Directives: Yes VTE prophylaxis?: Mechanical Plan of care discussed with patient/family: Yes
--- NOTE | 2019-05-07 06:38 | XRay Report ---
ABDOMEN 05/07/2019 INDICATION / CLINICAL INFORMATION: NG tube placement. COMPARISON: None available. FINDINGS: Nasogastric tube is positioned in the mid stomach. Signer Name: Adriano Whalen MD Signed: 05/07/2019 6:34 AM Workstation Name: [email or web address]
--- NOTE | 2019-05-07 08:21 | Event Note ---
Date: 05/07/19 Reviewed clinical documentation. No history of previous bariatric surgery and not other indication for bariatric surgery consultation at this time with acute small bowel obstruction. Spoke with Dr. Cristina, who is aware and will notify me if patient requires surgery and he needs assistance.
[2019-05-07] MEDS: D5W/0.45% NACL/KCL 20 MEQ 20 MEQ/1,000 ML BAG IV SCH ×2 (09:51→17:37)
[2019-05-07] MEDS: PEPCID IV SCH ×2 (09:57→21:31)
[2019-05-07] MEDS: MORPHINE IV PRN ×4 (09:57→22:39)
[2019-05-07] MEDS ORDERED: ATIVAN IV PRN (11:34)
--- NOTE | 2019-05-07 11:36 | Event Note ---
Date: 05/07/19 Patient seen and examined, still in pain, reports anxiety, awaiting surgical eval.
--- NOTE | 2019-05-07 13:07 | Progress Note ---
Assessment and Plan Pt was being evaluated but told me that Dr. Brumfield repaired his hernia (robotic assisted with biological mesh). Discussed with Dr. Brumfield who will come by to see pt. thanks Objective Vital Signs - 12hr 05/07/19 05/07/19 05/07/19 03:24 03:36 05:13 Temperature 98.6 F Pulse Rate 89 99 H Respiratory 20 24 20 Rate Blood Pressure 187/99 178/88 Blood Pressure [Left] O2 Sat by Pulse 96 94 96 Oximetry 05/07/19 05/07/19 05/07/19 05:15 05:30 05:46 Temperature Pulse Rate 101 H 98 H 99 H Respiratory 26 H 21 18 Rate Blood Pressure 152/84 154/91 147/84 Blood Pressure [Left] O2 Sat by Pulse 96 95 Oximetry 05/07/19 05/07/19 05/07/19 06:00 06:16 06:30 Temperature Pulse Rate 101 H Respiratory 15 24 19 Rate Blood Pressure 146/83 137/63 158/76 Blood Pressure [Left] O2 Sat by Pulse 96 93 93 Oximetry 05/07/19 05/07/19 05/07/19 06:45 07:00 07:18 Temperature Pulse Rate 105 H 104 H 105 H Respiratory 22 23 18 Rate Blood Pressure 135/77 163/78 Blood Pressure 145/75 [Left] O2 Sat by Pulse 91 93 93 Oximetry 05/07/19 05/07/19 08:00 09:00 Temperature Pulse Rate 107 H Respiratory 25 H 20 Rate Blood Pressure 159/75 162/95 Blood Pressure [Left] O2 Sat by Pulse 89 93 Oximetry - Labs 05/07/19 03:46 05/07/19 03:46 Diabetes panel 05/07/19 Range/Units 03:46 Sodium 137 (137-145) mmol/L Potassium 3.4 L (3.6-5.0) mmol/L Chloride 96.7 L (98-107) mmol/L Carbon Dioxide 27 (22-30) mmol/L BUN 11 (9-20) mg/dL Creatinine 0.8 (0.8-1.5) mg/dL Glucose 142 H (75-100) mg/dL Calcium 9.3 (8.4-10.2) mg/dL AST 20 (5-40) units/L ALT 22 (7-56) units/L Alkaline Phosphatase 88 (35-129) units/L Total Protein 7.8 (6.3-8.2) g/dL Albumin 4.1 (3.9-5) g/dL Calcium panel 05/07/19 Range/Units 03:46 Calcium 9.3 (8.4-10.2) mg/dL Albumin 4.1 (3.9-5) g/dL Pituitary panel 05/07/19 Range/Units 03:46 Sodium 137 (137-145) mmol/L Potassium 3.4 L (3.6-5.0) mmol/L Chloride 96.7 L (98-107) mmol/L Carbon Dioxide 27 (22-30) mmol/L BUN 11 (9-20) mg/dL Creatinine 0.8 (0.8-1.5) mg/dL Glucose 142 H (75-100) mg/dL Calcium 9.3 (8.4-10.2) mg/dL Adrenal panel 05/07/19 Range/Units 03:46 Sodium 137 (137-145) mmol/L Potassium 3.4 L (3.6-5.0) mmol/L Chloride 96.7 L (98-107) mmol/L Carbon Dioxide 27 (22-30) mmol/L BUN 11 (9-20) mg/dL Creatinine 0.8 (0.8-1.5) mg/dL Glucose 142 H (75-100) mg/dL Calcium 9.3 (8.4-10.2) mg/dL Total Bilirubin 0.20 (0.1-1.2) mg/dL AST 20 (5-40) units/L ALT 22 (7-56) units/L Alkaline Phosphatase 88 (35-129) units/L Total Protein 7.8 (6.3-8.2) g/dL Albumin 4.1 (3.9-5) g/dL
--- NOTE | 2019-05-07 19:19 | Consultation ---
History of Present Illness Consult date: 05/07/19 Reason for consult: abdominal pain Chief complaint: ABDOMINAL PAIN - History of present illness History of present illness: 58 yo M with hx of aortobifemoral bypass and robotic assisted ventral hernia re pair with biologic mesh in 12/2017 presents with abdominal pain, sharp, localized to the umbilicus x 1 day. He states that he ate hoa greens and got blocked up. He has been having normal bowel movements. He was found to have a hernia on physical exam and CT scan in the ER. The hernia was reduced and NGT placed for bowel obstruction. Since the hernia was reduced, the patient states he no longer has pain. He is passing flatus and had a BM. No n/v, f/c. No CP, SOB. He has known that his hernia recurred and has been seeing a surgeon at [facility] who requested weight loss prior to hernia repair. He does not smoke. Past History Past Medical History: hyperlipidemia, PVD, other (obesity, complex abdominal hernia, neuropathy, asthma) Past Surgical History: Other (aortoiliac bypass, robotic assisted ventral hernia repair with biologic mesh, right leg surgery) Social history: no significant social history. denies: smoking, alcohol abuse Family history: no significant family history Medications and Allergies Allergies Allergy/AdvReac Type Severity Reaction Status Date / Time Iodinated Contrast Media AdvReac Unknown Verified 09/04/18 14:20 Home Medications Medication Instructions Recorded Confirmed Last Taken Type Atorvastatin Calcium [Lipitor] 80 mg PO QDAY 01/05/18 09/04/18 Unknown History Gabapentin [Neurontin] 300 mg PO BID@0700,1800 30 Days 06/29/18 09/04/18 Unknown Rx capsule Ubidecarenone [Co Q-10] 10 mg PO BID 09/04/18 09/04/18 Unknown History Albuterol Sulfate [Proventil Hfa] 13.4 gm IH Q6H #1 hfa.aer.ad 09/08/18 Unknown Rx Aspirin 81 mg PO DAILY #30 tab.chew 09/08/18 Unknown Rx Cilostazol [Pletal] 50 mg PO BID 30 Days tablet 09/08/18 Unknown Rx Clopidogrel Bisulfate [Plavix] 75 mg PO DAILY #30 tablet 09/08/18 Unknown Rx Gabapentin [Neurontin] 600 mg PO QHS 30 Days capsule 09/08/18 Unknown Rx Metoprolol [Lopressor TAB] 25 mg PO BID #60 tablet 09/08/18 Unknown Rx [place]-3/Dha/Epa/Fish Oil [[place] 3 1 each PO BID #60 capsule 09/08/18 Unknown Rx 500 Softgel] Tiotropium [place] [Spiriva] 2 puff IH DAILY #30 cap.w.dev 09/08/18 Unknown Rx oxyCODONE /ACETAMINOPHEN [Percocet 1 tab PO Q6HR PRN #8 tablet 09/08/18 Unknown Rx 5/325 mg] Active Meds: Active Medications Acetaminophen (Tylenol) 650 mg PO Q4H PRN PRN Reason: Pain MILD(1-3)/Fever >100.5/NELSON Famotidine (Pepcid) 20 mg IV BID ASCENCION Last Admin: 05/07/19 09:57 Dose: 20 mg Documented by: Sodium Chloride (Nacl 0.9% 500 Ml) 500 mls @ 50 mls/hr IV DIRECT ASCENCION Last Admin: 05/07/19 05:08 Dose: 50 mls/hr Documented by: Lorazepam (Ativan) 1 mg IV Q4H PRN PRN Reason: Anxiety Morphine Sulfate (Morphine) 2 mg IV Q4H PRN PRN Reason: Pain, Moderate (4-6) Last Admin: 05/07/19 18:27 Dose: 2 mg Documented by: Ondansetron HCl (Zofran) 4 mg IV Q8H PRN PRN Reason: Nausea And Vomiting Review of Systems All systems: negative (10 pt ROS performed and negative except for that listed i n HPI) Exam Vital Signs Temp Pulse Resp BP Pulse Ox 98.6 F 89 20 187/99 96 05/07/19 03:24 05/07/19 03:24 05/07/19 03:24 05/07/19 03:24 05/07/19 03:24 Narrative exam: Gen: AAOx3. NAD ENT: NGT with dark brown/bloody drainage in canister - <100cc CV; S1, S2+ Resp: even and unlabored Abd: soft, NT, ND, obese. Umbilical hernia present, reducible, nontender, no skin changes. No r/r/g. Ext: no c/c/e Results - Labs 05/07/19 03:46 05/07/19 03:46 Abnormal lab results 05/07/19 05/07/19 Range/Units 03:46 03:46 WBC 16.4 H (4.5-11.0) K/mm3 RBC 5.56 H (3.65-5.03) M/mm3 Hgb 15.7 H (11.8-15.2) gm/dl Hct 47.2 H (35.5-45.6) % RDW 16.4 H (13.2-15.2) % [place] % (Auto) 8.8 H (0.0-7.3) % [place] # 1.4 H (0.0-0.8) K/mm3 Seg Neutrophils # 11.3 H (1.8-7.7) K/mm3 Potassium 3.4 L (3.6-5.0) mmol/L Chloride 96.7 L (98-107) mmol/L Glucose 142 H (75-100) mg/dL Diabetes panel 05/07/19 Range/Units 03:46 Sodium 137 (137-145) mmol/L Potassium 3.4 L (3.6-5.0) mmol/L Chloride 96.7 L (98-107) mmol/L Carbon Dioxide 27 (22-30) mmol/L BUN 11 (9-20) mg/dL Creatinine 0.8 (0.8-1.5) mg/dL Glucose 142 H (75-100) mg/dL Calcium 9.3 (8.4-10.2) mg/dL AST 20 (5-40) units/L ALT 22 (7-56) units/L Alkaline Phosphatase 88 (35-129) units/L Total Protein 7.8 (6.3-8.2) g/dL Albumin 4.1 (3.9-5) g/dL Calcium panel 05/07/19 Range/Units 03:46 Calcium 9.3 (8.4-10.2) mg/dL Albumin 4.1 (3.9-5) g/dL Pituitary panel 05/07/19 Range/Units 03:46 Sodium 137 (137-145) mmol/L Potassium 3.4 L (3.6-5.0) mmol/L Chloride 96.7 L (98-107) mmol/L Carbon Dioxide 27 (22-30) mmol/L BUN 11 (9-20) mg/dL Creatinine 0.8 (0.8-1.5) mg/dL Glucose 142 H (75-100) mg/dL Calcium 9.3 (8.4-10.2) mg/dL Adrenal panel 05/07/19 Range/Units 03:46 Sodium 137 (137-145) mmol/L Potassium 3.4 L (3.6-5.0) mmol/L Chloride 96.7 L (98-107) mmol/L Carbon Dioxide 27 (22-30) mmol/L BUN 11 (9-20) mg/dL Creatinine 0.8 (0.8-1.5) mg/dL Glucose 142 H (75-100) mg/dL Calcium 9.3 (8.4-10.2) mg/dL Total Bilirubin 0.20 (0.1-1.2) mg/dL AST 20 (5-40) units/L ALT 22 (7-56) units/L Alkaline Phosphatase 88 (35-129) units/L Total Protein 7.8 (6.3-8.2) g/dL Albumin 4.1 (3.9-5) g/dL - Imaging CT scan - abdomen: report reviewed, image reviewed CT scan - pelvis: report reviewed, image reviewed Assessment and Plan 58 yo M with recurrent umbilical hernia, pSBO Plan: Hernia reduced in ER with immediate relief of patient's symptoms. NGT output minimal, nonbilious. Patient with bowel function and benign abdomen 1. dc NGT 2. dc IVF 3. soft diet 4. OOB/ambulate 5. abdominal binder for comfort 6. bowel regimen 7. Recommend follow up with Dr. Maddie Scanlon at [facility] as outpatient for evaluation of complex abdominal wall reconstruction for recurrent hernia. Patient states he has been seeing surgery at [facility] who recommended that he lose weight prior to any consideration for hernia repair. OK to dc in am from surgery standpoint. Thank you, please call with questions
[2019-05-07] MEDS: ZOFRAN IV PRN (22:39)
[2019-05-08] MEDS: MORPHINE IV PRN ×3 (02:35→10:50)
[2019-05-08] MEDS ORDERED: PERCOCET 5/325 PO PRN (08:32)
[2019-05-08] MEDS ORDERED: PROAIR IH SCH (08:45)
--- NOTE | 2019-05-08 09:30 | XRay Report ---
CHEST 1 VIEW INDICATION: SHORTNESS OF BREATH. COMPARISON: 06/25/2018 FINDINGS: Support devices: None. Heart: Within normal limits. Lungs/Pleura: No acute air space or interstitial disease. Additional findings: None. IMPRESSION: No acute findings. Signer Name: Kyle Ramirez Jr, MD Signed: 05/08/2019 9:25 AM Workstation Name: [id number]
[2019-05-08] MEDS ORDERED: SPIRIVA IH SCH (10:00)
[2019-05-08] MEDS ORDERED: NON-FORMULARY (Omega-3/Dha/Epa/Fish Oil [Omega 3 500 Softgel] 1 EACH) PO SCH (10:00)
[2019-05-08] MEDS ORDERED: NON-FORMULARY (Atorvastatin Calcium [Lipitor] 80 MG) PO SCH (10:00)
[2019-05-08] MEDS ORDERED: METOPROLOL PO SCH (10:00)
[2019-05-08] MEDS ORDERED: PLAVIX PO SCH (10:00)
[2019-05-08] MEDS ORDERED: UBIDECARENONE 10 MG PO SCH (10:00)
[2019-05-08] MEDS ORDERED: BABY ASPIRIN PO SCH (10:00)
[2019-05-08] MEDS ORDERED: PROVENTIL IH SCH (10:00)
[2019-05-08] MEDS ORDERED: PLETAL PO SCH (10:00)
[2019-05-08] MEDS: PEPCID IV SCH (10:13)
[2019-05-08] MEDS: ZOFRAN IV PRN (10:52)
--- NOTE | 2019-05-08 12:21 | Discharge Summary ---
Providers - Providers Date of Admission: 05/07/19 05:57 Attending physician: VINICIUS EWING MD 05/07/19 05:45 Consult to Physician [CONS] Urgent Comment: Dr. Nolan spoke with Dr. Garibay @ 0548 Consulting Provider: TARAH GARIBAY Physician Instructions: Reason For Exam: sbo 05/07/19 05:51 Consult to Physician [CONS] Urgent Comment: Consulting Provider: KENDRICK LUCIA Physician Instructions: Reason For Exam: sbo obese, requested by Dr John Garibay 05/07/19 13:17 Consult to Physician [CONS] Routine Comment: Consulting Provider: INDIO MISTRY Physician Instructions: Reason For Exam: recurrent ventral hernia. pt known to her Primary care physician: [facility] Hospitalization Reason for admission: abdominal pain Condition: Stable Hospital course: Pt is a 58-year-old male with PMHx of CAD, PVD (s/p femoral bypass, iliac stent), HTN, HDL, GERD, multiple abdominal hernias/SBO (s/p abdominal sx x3), COPD, obesity, chronic pain who presents to the ER for complaint of abdominal pain x 2 day. Pt sates that the pain is located in the middle of his abdomen, it it a sharp tearing pain similar to the pain he had before when he was diagnosed with abdominal obstruction. Pt reports nausea, denies vomiting, denies headache, denies dizziness, denies fever or chills. In the ER, he had a CT scan of the abdomen and pelvis that showed ventral hernia with evidence of small bowel obstruction. There is bowel was edema involving small bowel loods, cholelithiasis, fatty liver, surgery was called, and pt is admitted for management of SBO. * NGT was placed with dark brown/bloody drainage in canister - <100cc and discontinued * Clincally improved today, tolerating diet * Patient was seen by surgery, noted that the patient had immediate relief yesterday and is stable this morning and ready for discharge, Abdomen remain benign * Recommended to follow with Dr. Maddie Rooney at [facility] as outpatient for evaluation of complex abdominal wall reconstruction for recurrent hernia * Weight loss recommended 1. Small bowel obstruction- resolved 2. Abdominal pain (due to above) 3. Leukocytosis 4. Hypokalemia 5. Obesity 6. H/o prior abdominal surgeries due to ventral hernia 7. H/o CAD 8. Accelerated HTN 9. GERD 10. H/o PVD 11. H/o COPD Disposition: DC-01 TO HOME OR SELFCARE Time spent for discharge: 35 MINS Core Measure Documentation - Palliative Care Palliative Care/ Comfort Measures: Not Applicable - Core Measures Any of the following diagnoses?: none Exam - Constitutional Vitals: Temp Pulse Resp BP Pulse Ox 98.2 F 98 H 18 125/60 90 05/08/19 10:45 05/08/19 10:45 05/08/19 10:45 05/08/19 10:45 05/08/19 10:45 General appearance: Present: no acute distress, well-nourished, obese (MORBIDLY) - EENT Eyes: Present: PERRL, EOM intact - Neck Neck: Present: supple, normal ROM - Respiratory Respiratory effort: normal Respiratory: bilateral: diminished - Cardiovascular Rhythm: regular Heart Sounds: Present: S1 & S2. Absent: systolic murmur, diastolic murmur - Extremities Extremities: no ischemia, pulses intact, pulses symmetrical, No edema, normal temperature, normal color, Full ROM Peripheral Pulses: within normal limits - Abdominal General gastrointestinal: Present: soft, non-tender, non-distended, normal bowel sounds, hernia (REDUCIBLE) - Integumentary Integumentary: Present: clear, warm - Musculoskeletal Musculoskeletal: strength equal bilaterally - Psychiatric Psychiatric: appropriate mood/affect, intact judgment & insight - Neurologic Neurologic: CNII-XII intact, moves all extremities - Allied Health Allied health notes reviewed: nursing Plan Activity: advance as tolerated, fall precautions Diet: low fat Special Instructions: record daily weights, record blood sugar diary Care Plan Goals: IMPROVED ABDOMINAL PAIN Plan of Treatment: fOLLOW WITH SURGEON AT [facility] as recommended Health Concerns: Incarated Hernia, OBESITY RELATED MEDICAL PROBLEMS Follow up with: HENRIETTA CONDON MD [Primary Care Provider] - 3-5 Days RANDY ROONEY MD [Referring] - 7 Days
[2019-05-08 13:47] VITALS: BP 130/49
[2019-05-08] MEDS ORDERED: GABAPENTIN PO SCH ×2 (18:00→22:00)
== END 2019-05-08 13:35 | disposition home or self-care (01) ==
LOC: ED 03:19 → SUATTDRO 03:19 → INTOOBSV 05:57 → 3A 05:57
PROVIDERS: ADMIT Internal Medicine; ATTEND Internal Medicine
DX: K56.609 Unspecified intestinal obstruction, unspecified as to partial versus complete obstruction (principal); E87.6 Hypokalemia; D72.829 Elevated white blood cell count, unspecified; E66.9 Obesity, unspecified; I10 Essential (primary) hypertension; K21.9 Gastro-esophageal reflux disease without esophagitis; I73.9 Peripheral vascular disease, unspecified; J44.9 Chronic obstructive pulmonary disease, unspecified; E78.00 Pure hypercholesterolemia, unspecified; I25.10 Atherosclerotic heart disease of native coronary artery without angina pectoris; M19.90 Unspecified osteoarthritis, unspecified site; Z98.890 Other specified postprocedural states; Z79.82 Long term (current) use of aspirin; Z79.01 Long term (current) use of anticoagulants
CPT/HCPCS: 36415; 71045; 74018; 74177; 80053; 82550; 83735; 85025; 87116; 93005; 93010; 94760; 96365; 96366; 96372; 96375; 96376; 99284; G0378; J1170; J1630; J2270; J2405; J3010; J3480; J7040; Q9967; 96374

== ENCOUNTER 2020-12-20 13:10 | Inpatient (IN) | payer MEDICARE ==
[2020-12-20] MEDS ORDERED: HYDROmorphone 1 MG/1 ML INJ IV ONE (13:27)
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
[2020-12-20] MEDS ORDERED: CEFEPIME/NS 2 GM/100 ML 2 GM/100 ML BAG IV ONE (13:29)
[2020-12-20] MEDS ORDERED: metroNIDAZOLE/NS 500 MG/100 ML 500 MG/100 ML BAG IV ONE (13:29)
[2020-12-20] MEDS ORDERED: SODIUM CHLORIDE 0.9% 1000 ML 1,000 ML IV ONE ×2 (13:30→15:23)
[2020-12-20 14:10] LABS: Bilirubin,Urine NEG (Negative); Blood,Urine NEG (Negative); Color,Urine Amber (Yellow); Hyaline Casts,Urine 19 /LPF; Mucus,Urine FEW /HPF
[2020-12-20] MEDS ORDERED: fentaNYL 100 MCG/2 ML INJ IV ONE ×2 (14:22→15:14)
[2020-12-20 14:55] LABS: Albumin 2.2 g/dL (3.9-5); Calcium 8.7 mg/dL (8.4-10.2)
--- NOTE | 2020-12-20 15:02 | Cat Scan Report ---
CT ABDOMEN AND PELVIS WITHOUT CONTRAST INDICATION / CLINICAL INFORMATION: abd pain. TECHNIQUE: Axial CT images were obtained through the abdomen and pelvis without IV contrast. All CT scans at this location are performed using CT dose reduction for ALARA by means of automated exposure control. COMPARISON: 09/12/2020 FINDINGS: LOWER CHEST: There are patchy bibasilar airspace consolidations. No pleural effusion. LIVER: No significant abnormality GALLBLADDER/BILIARY TREE: Cholelithiasis. No evidence of cholecystitis. No biliary dilatation. PANCREAS: No significant abnormality SPLEEN: No significant abnormality ADRENALS: Bilateral adrenal thickening, unchanged. KIDNEYS / URETER: No significant abnormality URINARY BLADDER: Bladder is decompressed with wall thickening. No significant periventricular strandi ng. REPRODUCTIVE ORGANS: No significant abnormality BOWEL: Multiple ventral abdominal wall hernias again noted which again contains a normal-appearing sm all bowel. There is adjacent fat stranding and multiple loops of dilated small bowel with air-fluid l evels. The stomach and duodenum are decompressed. There are significant obstructive changes within th e majority of the small bowel in the mid abdomen and pelvis. Colon is decompressed. There is a short segment of nonobstructed transverse colon extending into a hernia sac. LYMPH NODES: No new or increasing adenopathy. VASCULATURE: Postoperative changes of prior aortobiiliac bypass, incompletely evaluated. Stent is pre sent within the [place] right iliac artery. OTHER: No free air or focal fluid collection. SKELETAL SYSTEM: Scattered degenerative changes of spine. No acute process. IMPRESSION: 1. High-grade small bowel obstruction related to several complex ventral abdominal wall hernias, pro gressed in appearance from prior exam from 09/12/2020. No evidence of pneumatosis or pneumoperitoneum. 2. Patchy bibasilar airspace disease, concerning for atypical infectious process/pneumonitis. Of not e, findings may be seen with COVID. Signer Name: Tyrone Stein MD Signed: 12/20/2020 2:58 PM Workstation Name: [facility] [employer]
[2020-12-20] MEDS ORDERED: ONDANSETRON 4 MG/2 ML INJ IV ONE (15:14)
[2020-12-20 15:20] LABS: Hematocrit 47.7 % (35.5-45.6); Hemoglobin 16.2 gm/dl (11.8-15.2); Mean Corpuscular HGB Conc 34 % (32-34); Mean Corpuscular Volume 85 fl (84-94); Red Blood Count 5.59 M/mm3 (3.65-5.03); Red Cell Distribution Width 15.5 % (13.2-15.2)
[2020-12-20 15:21] LABS: Platelet Count 486 K/mm3 (140-440)
--- NOTE | 2020-12-20 16:38 | Anesthesia Consultation ---
Anesthesia Consult and Med Hx Date of service: 12/20/20 - Airway Anesthetic Teeth Evaluation: Edentulous ROM Head & Neck: Adequate Mental/Hyoid Distance: Adequate Mallampati Class: Class III Intubation Access Assessment: Possibly Difficult - Pre-Operative Health Status ASA Pre-Surgery Classification: ASA3, Emergency Proposed Anesthetic Plan: General - Pulmonary Hx Smoking: Yes (quit per patient "long time ago") Hx Asthma: No Hx Respiratory Symptoms: Yes (h/o acute resp failure) COPD: Yes Hx Pneumonia: No Hx Sleep Apnea: Yes - Cardiovascular System Hx Hypertension: Yes Hx Coronary Artery Disease: Yes Hx Heart Attack/AMI: No Hx Pacemaker: No Hx Internal Defibrillator: No Hx Peripheral Vascular Disease: Yes (WITH STENT) - Central Nervous System Hx Neuromuscular Disorder: No Hx Seizures: No CVA: No (patient states s/p last surgery had right facial drooping, slurred speech) Hx Back Pain: Yes (on chronic pain meds) Hx Psychiatric Problems: No - Gastrointestinal Hx Ulcer: No Hx Gastroesophageal Reflux Disease: No - Endocrine Hx Renal Disease: No Hx End Stage Renal Disease: No Hx Liver Disease: No Hx Insulin Dependent Diabetes: No - Hematic Hx Anemia: No Hx Sickle Cell Disease: No - Other Systems Hx Alcohol Use: No Hx Substance Use: Yes (percocet, demerol at home) Hx Cancer: No Hx Obesity: Yes
--- NOTE | 2020-12-20 16:40 | Anesthesia Day of Surgery ---
Anesthesia Day of Surgery - Day of Surgery Patient Examined: Yes Patient H&P Reviewed: Yes Patient is NPO: Yes
[2020-12-20] MEDS ORDERED: MORPHINE 4 MG/1 ML INJ IV PRN (16:42)
[2020-12-20] MEDS ORDERED: ALBUTEROL 2.5 MG/3 ML NEBU IH PRN (16:42)
--- NOTE | 2020-12-20 16:42 | History and Physical Report ---
History of Present Illness Chief complaint: I am in pain History of present illness: 60 YO Male with Obesity, HTN, Narcotic Dependence/Addiction, CAD S/P Stent Placement on DAPT, HLD, OA, GERD presents to ED for evaluation. Patient reports "my stomach hurts". Patient states that he has experienced abdominal pain over the past 3 days with progressively worsening symptoms over the same timeframe. Patient states that pain is 10/10, constant, diffuse, worsened with movement, relieved slightly with rest. Patient knowledges decreased oral intake, nausea, multiple episodes of vomiting. EMS was notified and upon arrival the patient was found to be in distress and subsequently transported to [facility] for further care and evaluation of the aforementioned symptoms. The patient was seen and evaluated in the emergency department. All lab and imaging studies reviewed. Patient underwent CT scan of the abdomen and pelvis and was found to have evidence of a small bowel obstruction as well as clinical findings consistent with acute peritonitis. Surgical team consulted in ED. Patient treated with IV fluid resuscitation therapy, bowel rest and pain control. Patient denies fever, chills, chest pain, palpitation, productive cough, skin rash, recent ill contacts, ingestion of food/water from new or different sources, or known exposure to COVID-19. Prior admission on 09/12/2020 reviewed. All medication listed at time of admission has been reconciled. Advanced care planning conducted in ED. Past History Past Medical History: arthritis, GERD, hypertension, hyperlipidemia, other (See HPI) Past Surgical History: hernia repair, bowel surgery, Other (Stent placement) Social history: single, other (Narcotic dependence/addiction). denies: smoking Family history: hypertension Medications and Allergies Allergies Allergy/AdvReac Type Severity Reaction Status Date / Time Iodinated Contrast Media AdvReac Unknown Verified 09/04/18 14:20 Home Medications Medication Instructions Recorded Confirmed Last Taken Type Aspirin 81 mg PO DAILY #30 tab.chew 09/08/18 09/12/20 03/31/20 09:28 Rx AtorvaSTATin [Lipitor] 80 mg PO QHS tablet 05/08/19 09/12/20 03/28/20 Rx Albuterol Sulfate [Proventil Hfa] 13.4 gm IH Q6H #1 hfa.aer.ad 04/01/20 09/12/20 Unknown Rx Clopidogrel [Plavix] 75 mg PO DAILY #30 tablet 04/01/20 09/12/20 Unknown Rx Gabapentin 300 mg PO BID@0700,1800 30 Days 04/01/20 09/12/20 Unknown Rx capsule Gabapentin 600 mg PO QHS 30 Days capsule 04/01/20 09/12/20 Unknown Rx Metoprolol [Lopressor TAB] 25 mg PO BID #60 tablet 04/01/20 09/12/20 Unknown Rx [place]-3/Dha/Epa/Fish Oil [[place] 3 1 each PO BID #60 capsule 04/01/20 09/12/20 Unknown Rx 500 Softgel] Tiotropium [place] [Spiriva] 2 puff IH DAILY #30 cap.w.dev 04/01/20 09/12/20 Unknown Rx Ubidecarenone [Co Q-10] 10 mg PO BID #60 tab 04/01/20 09/12/20 03/29/20 Rx cilostazoL [Pletal] 50 mg PO BID 30 Days tablet 04/01/20 09/12/20 Unknown Rx oxyCODONE /ACETAMINOPHEN [Percocet 2 tab PO Q6H PRN tablet 04/01/20 09/12/20 Unknown Rx 5/325 mg] Phosphorus #1 [K-Phos Neutral] 250 mg PO QID 2 Days #8 tablet 09/14/20 Unknown Rx Active Meds: Active Medications Sodium Chloride (Nacl 0.9% 1000 Ml) 1,000 mls @ 125 mls/hr IV ONCE ONE Stop: 12/20/20 21:29 Last Admin: 12/20/20 14:03 Dose: 125 mls/hr Documented by: Review of Systems Constitutional: no weight loss, no weight gain, no chills, no sweats Ears, nose, mouth and throat: no ear pain, no tinnitis, no decreased hearing, no nasal congestion, no nasal discharge Cardiovascular: no chest pain, no orthopnea, no palpitations, no edema Respiratory: no cough, no cough with sputum, no shortness of breath, no dyspnea on exertion Gastrointestinal: abdominal pain, nausea, vomiting, no hematemesis, no coffee ground emesis, no BRBPR, no melena, no hematochezia Genitourinary Male: no hematuria, no flank pain, no discharge, no urinary frequency, no urinary hesitancy Rectal: no pain, no incontinence Musculoskeletal: no neck stiffness, no shooting arm pain, no arm numbness/tingling, no low back pain Integumentary: no rash, no pruritis, no sores Neurological: no head injury, no transient paralysis, no weakness, no numbness, no tingling, no syncope Psychiatric: no anxiety, no change in sleep habits, no insomnia, no change in appetite, no suicidal ideation Endocrine: no cold intolerance, no polyphagia, no polydipsia, no polyuria, no nocturia Hematologic/Lymphatic: no easy bruising, no easy bleeding Allergic/Immunologic: no allergic rhinitis, no wheezing Exam - Constitutional Vitals: Temp Pulse Resp BP Pulse Ox 98.6 F 136 H 18 111/72 97 12/20/20 13:17 12/20/20 13:17 12/20/20 13:17 12/20/20 13:17 12/20/20 13:17 General appearance: Present: mild distress, obese - EENT Eyes: Present: PERRL ENT: hearing intact, clear oral mucosa - Neck Neck: Present: supple, normal ROM - Respiratory Respiratory effort: normal Respiratory: bilateral: CTA - Cardiovascular Heart Sounds: Present: S1 & S2. Absent: rub, click - Extremities Extremities: pulses symmetrical, No edema Peripheral Pulses: within normal limits - Abdominal General gastrointestinal: Present: soft, non-tender, tender, hypoactive bowel sounds Localized gastrointestinal: tender: diffuse, guarding: diffuse, rebound: diffuse Male genitourinary: Present: normal - Integumentary Integumentary: Present: clear, warm, dry - Musculoskeletal Musculoskeletal: gait normal, strength equal bilaterally - Psychiatric Psychiatric: appropriate mood/affect, intact judgment & insight, agitated - Neurologic Neurologic: CNII-XII intact, moves all extremities HEART Score - HEART Score Troponin: Troponin T < 0.010 ng/mL (0.00-0.029) 12/20/20 13:58 Results - Labs CBC & Chem 7: 12/20/20 13:58 12/20/20 13:58 Labs: Abnormal lab results 12/20/20 12/20/20 12/20/20 Range/Units 13:58 13:58 13:58 WBC 41.1 H* (4.5-11.0) K/mm3 RBC 5.59 H (3.65-5.03) M/mm3 Hgb 16.2 H (11.8-15.2) gm/dl Hct 47.7 H (35.5-45.6) % RDW 15.5 H (13.2-15.2) % Plt Count 486 H (140-440) K/mm3 APTT (24.2-36.6) Sec. Sodium 130 L (137-145) mmol/L Chloride 80.7 L (98-107) mmol/L BUN 37 H (9-20) mg/dL Glucose 101 H (75-100) mg/dL Lactic Acid 3.20 H* (0.7-2.0) mmol/L Alkaline Phosphatase 142 H (35-129) units/L Total Protein 6.2 L (6.3-8.2) g/dL Albumin 2.2 L (3.9-5) g/dL 12/20/20 Range/Units 13:58 WBC (4.5-11.0) K/mm3 RBC (3.65-5.03) M/mm3 Hgb (11.8-15.2) gm/dl Hct (35.5-45.6) % RDW (13.2-15.2) % Plt Count (140-440) K/mm3 APTT 49.4 H (24.2-36.6) Sec. Sodium (137-145) mmol/L Chloride (98-107) mmol/L BUN (9-20) mg/dL Glucose (75-100) mg/dL Lactic Acid (0.7-2.0) mmol/L Alkaline Phosphatase (35-129) units/L Total Protein (6.3-8.2) g/dL Albumin (3.9-5) g/dL Assessment and Plan - Patient Problems (1) Peritonitis (acute) generalized Current Visit: Yes Status: Acute Plan to address problem: Serial abdominal exam, surgery team consulted, CT scan abdomen and pelvis, IV fluid resuscitation therapy, n.p.o., patient is pending surgical intervention. Patient admitted to ICU for further care and postoperative management. The high probability of a clinically significant, sudden or life threatening deterioration of the [GI, pulmonary,] system(s) required my full and direct attention, intervention and personal management. The aggregate critical care time was [65] minutes. This time is in addition to time spent performing reported procedures but includes the following: [x] Data Review and interpretation [x] Patient assessment and monitoring of vital signs [x] Documentation [x] Medication orders and management (2) Small bowel obstruction Current Visit: Yes Status: Acute Plan to address problem: Serial abdominal exam, CT scan abdomen pelvis, IV fluid resuscitation therapy, supportive care. Surgery team consulted. (3) Obesity (BMI 30-39.9) Current Visit: Yes Status: Acute Plan to address problem: Balanced diet, increase physical activity at discharge, outpatient pulmonary follow-up for sleep study. (4) DVT prophylaxis Current Visit: Yes Status: Acute Plan to address problem: SCD to bilateral lower extremities while in bed (5) Advance care planning Current Visit: Yes Status: Acute Plan to address problem: Disease education conducted, care plan discussed, diagnosis discussed, prognosis discussed, patient knowledges understanding and agreement with care plan. Patient brother is to be notified for medical decision making as per patient request. +30 minutes.
[2020-12-20] MEDS ORDERED: ROCURONIUM 50 MG/5 ML INJ IV ONE ×2 (16:43→19:14)
[2020-12-20] MEDS ORDERED: SUCCINYLCHOLINE CHLORIDE 200 MG/10 ML INJ MDV ONE (16:43)
[2020-12-20] MEDS ORDERED: propofoL 200 MG/20 ML VIAL IV ONE (16:43)
[2020-12-20] MEDS ORDERED: LIDOCAINE MPF (2%) 20 MG/1 ML VIAL 5 ML ONE (16:43)
[2020-12-20] MEDS ORDERED: HYDROmorphone 1 MG/1 ML INJ ONE ×2 (16:43→20:03)
[2020-12-20] MEDS ORDERED: SODIUM CHLORIDE 0.9% 1000 ML 1,000 ML ONE ×5 (16:54→19:42)
[2020-12-20] MEDS ORDERED: SODIUM CHLORIDE 0.9% IRR 1,500 ML BOTTLE IR ONE (17:29)
--- NOTE | 2020-12-20 20:31 | Consultation ---
History of Present Illness Consult date: 12/20/20 Reason for consult: abdominal pain - History of present illness History of present illness: 60 year old male presented to ED with a several day history of worsening abdominal pain, nausea and vomiting. He has a hx of ventral hernias that have been the source of previous small bowel obstruction. He was referred to [facility] for complex ventral hernia repair several months ago but did not follow up. He had a CT scan that showed a SBO with incarcerated small bowel in the ventral hernias. Past History Past Medical History: arthritis, GERD, hypertension, hyperlipidemia, other (See HPI) Past Surgical History: hernia repair, bowel surgery, Other (Stent placement) Social history: single, prescription drug abuse, other (Narcotic dependence/add iction). denies: smoking Family history: hypertension Medications and Allergies Allergies Allergy/AdvReac Type Severity Reaction Status Date / Time Iodinated Contrast Media AdvReac Unknown Verified 09/04/18 14:20 Home Medications Medication Instructions Recorded Confirmed Last Taken Type RX: Aspirin 81 mg PO DAILY #30 tab.chew 09/08/18 09/12/20 03/31/20 09:28 Rx RX: AtorvaSTATin [Lipitor] 80 mg PO QHS tablet 05/08/19 09/12/20 03/28/20 Rx RX: Albuterol Sulfate [Proventil 13.4 gm IH Q6H #1 hfa.aer.ad 04/01/20 09/12/20 Unknown Rx Hfa] RX: Clopidogrel [Plavix] 75 mg PO DAILY #30 tablet 04/01/20 09/12/20 Unknown Rx RX: Gabapentin 300 mg PO BID@0700,1800 30 Days 04/01/20 09/12/20 Unknown Rx capsule RX: Gabapentin 600 mg PO QHS 30 Days capsule 04/01/20 09/12/20 Unknown Rx RX: Metoprolol [Lopressor TAB] 25 mg PO BID #60 tablet 04/01/20 09/12/20 Unknown Rx RX: Vernon-3/Dha/Epa/Fish Oil 1 each PO BID #60 capsule 04/01/20 09/12/20 Unknown Rx [Vernon 3 500 Softgel] RX: Tiotropium [place] [Spiriva] 2 puff IH DAILY #30 cap.w.dev 04/01/20 09/12/20 Unknown Rx RX: Ubidecarenone [Co Q-10] 10 mg PO BID #60 tab 04/01/20 09/12/20 03/29/20 Rx RX: cilostazoL [Pletal] 50 mg PO BID 30 Days tablet 04/01/20 09/12/20 Unknown Rx RX: oxyCODONE /ACETAMINOPHEN 2 tab PO Q6H PRN tablet 04/01/20 09/12/20 Unknown Rx [Percocet 5/325 mg] RX: Phosphorus #1 [K-Phos Neutral] 250 mg PO QID 2 Days #8 tablet 09/14/20 Unknown Rx Active Meds: Active Medications Albuterol (Albuterol 2.5 Mg/3 Ml Nebu) 2.5 mg IH Q3HRT PRN PRN Reason: Shortness Of Breath Sodium Chloride (Nacl 0.9% 1000 Ml) 1,000 mls @ 125 mls/hr IV ONCE ONE Stop: 12/20/20 21:29 Last Admin: 12/20/20 14:03 Dose: 125 mls/hr Documented by: Morphine Sulfate (Morphine 4 Mg/1 Ml Inj) 2 mg IV Q4H PRN PRN Reason: Pain , Severe (7-10) Sodium Chloride (Sodium Chloride 0.9% 10 Ml Flush Syringe) 10 ml IV BID ASCENCION Sodium Chloride (Sodium Chloride 0.9% 10 Ml Flush Syringe) 10 ml IV PRN PRN PRN Reason: LINE FLUSH Exam Vital Signs Temp Pulse Resp BP Pulse Ox 98.6 F 136 H 18 111/72 97 12/20/20 13:17 12/20/20 13:17 12/20/20 13:17 12/20/20 13:17 12/20/20 13:17 - General physical appearance Positive: moderate distress, severe pain - Respiratory Positive: normal expansion, normal respiratory effort - Cardiovascular Heart Sounds: Present: S1 & S2 - Extremities Extremities: no ischemia - Abdomen Abdomen: Present: soft, tender, distended, guarding, surgical scars, other (protuberent, long midline vertical scar. two visible large hernias. One on the right side that is reducible, at the umbilicus non reducible hernia with skin changes of erythem. ). Absent: rigid Hernia: incarcerated Results - Labs 12/20/20 13:58 12/20/20 13:58 Abnormal lab results 12/20/20 12/20/20 12/20/20 Range/Units 13:58 13:58 13:58 WBC 41.1 H* (4.5-11.0) K/mm3 RBC 5.59 H (3.65-5.03) M/mm3 Hgb 16.2 H (11.8-15.2) gm/dl Hct 47.7 H (35.5-45.6) % RDW 15.5 H (13.2-15.2) % Plt Count 486 H (140-440) K/mm3 APTT (24.2-36.6) Sec. Sodium 130 L (137-145) mmol/L Chloride 80.7 L (98-107) mmol/L BUN 37 H (9-20) mg/dL Glucose 101 H (75-100) mg/dL Lactic Acid 3.20 H* (0.7-2.0) mmol/L Alkaline Phosphatase 142 H (35-129) units/L Total Protein 6.2 L (6.3-8.2) g/dL Albumin 2.2 L (3.9-5) g/dL 12/20/20 Range/Units 13:58 WBC (4.5-11.0) K/mm3 RBC (3.65-5.03) M/mm3 Hgb (11.8-15.2) gm/dl Hct (35.5-45.6) % RDW (13.2-15.2) % Plt Count (140-440) K/mm3 APTT 49.4 H (24.2-36.6) Sec. Sodium (137-145) mmol/L Chloride (98-107) mmol/L BUN (9-20) mg/dL Glucose (75-100) mg/dL Lactic Acid (0.7-2.0) mmol/L Alkaline Phosphatase (35-129) units/L Total Protein (6.3-8.2) g/dL Albumin (3.9-5) g/dL Diabetes panel 12/20/20 Range/Units 13:58 Sodium 130 L (137-145) mmol/L Potassium 4.6 (3.6-5.0) mmol/L Chloride 80.7 L (98-107) mmol/L Carbon Dioxide 25 (22-30) mmol/L BUN 37 H (9-20) mg/dL Creatinine 1.3 (0.8-1.3) mg/dL Glucose 101 H (75-100) mg/dL Calcium 8.7 (8.4-10.2) mg/dL AST 36 (5-40) units/L ALT 24 (7-56) units/L Alkaline Phosphatase 142 H (35-129) units/L Total Protein 6.2 L (6.3-8.2) g/dL Albumin 2.2 L (3.9-5) g/dL Calcium panel 12/20/20 Range/Units 13:58 Calcium 8.7 (8.4-10.2) mg/dL Albumin 2.2 L (3.9-5) g/dL Pituitary panel 12/20/20 Range/Units 13:58 Sodium 130 L (137-145) mmol/L Potassium 4.6 (3.6-5.0) mmol/L Chloride 80.7 L (98-107) mmol/L Carbon Dioxide 25 (22-30) mmol/L BUN 37 H (9-20) mg/dL Creatinine 1.3 (0.8-1.3) mg/dL Glucose 101 H (75-100) mg/dL Calcium 8.7 (8.4-10.2) mg/dL Adrenal panel 12/20/20 Range/Units 13:58 Sodium 130 L (137-145) mmol/L Potassium 4.6 (3.6-5.0) mmol/L Chloride 80.7 L (98-107) mmol/L Carbon Dioxide 25 (22-30) mmol/L BUN 37 H (9-20) mg/dL Creatinine 1.3 (0.8-1.3) mg/dL Glucose 101 H (75-100) mg/dL Calcium 8.7 (8.4-10.2) mg/dL Total Bilirubin 0.70 (0.1-1.2) mg/dL AST 36 (5-40) units/L ALT 24 (7-56) units/L Alkaline Phosphatase 142 H (35-129) units/L Total Protein 6.2 L (6.3-8.2) g/dL Albumin 2.2 L (3.9-5) g/dL - Imaging CT scan - abdomen: report reviewed, image reviewed CT scan - pelvis: report reviewed, image reviewed Assessment and Plan 60 year old male with multiple ventral hernias, with small bowel incarceration causing small bowel obstruction. Patient has an acute abdomen with severe dehydration, lactic acidosis, and under resuscitation. Patient was consented for emergent exploratory laparotomy. Patient was discussed with at length the high possibility that his abdomen will need to be left open at the end of the procedure for planned subsequent procedures. The goal of this procedure is to evaluate the small bowel and resect any nonviable tissue. He expressed understanding of the risk and benefits.
[2020-12-20] MEDS: HYDROmorphone 1 MG/1 ML INJ IV PRN ×2 (20:36→21:57)
--- NOTE | 2020-12-20 20:45 | Operative Report ---
Operative Report Operative Report: Date: December 20, 2020 Surgeon: Freda Tena MD Musical Instrument Maker Or Repairer surgeon: Julia Brumfield DO Procedure:1. Exploratory laparotomy, 2. Extensive lysis of adhesions, 3. Small bowel resection,4. Peritoneal lavage, 5. ABThera abdominal wound VAC placement Anesthesia:GETA Pre-op diagnosis: Incarcerated ventral hernia, peritonitis Postop diagnosis: Same as preop Indication: Patient is a 60-year-old male who presented to the emergency room with incarcerated ventral hernia causing small bowel obstruction. Patient had peritoneal signs and skin changes with lactic acidosis suggestive of small bowel ischemia. Patient has a previous history of previous ventral hernia repair. Patient signed informed consent expressed understanding risk and benefits. Details of the procedure: Patient was brought into the OR suite laid in supine position. Bilateral lower extremity SCDs were placed. General anesthesia was induced via successful and tracheal tube intubation. A Lawrence catheter was inserted under sterile conditions. Patient's abdomen was prepped and draped in sterile fashion. After a timeout was performed starting at the apex of his previous vertical incision, a 10 blade scalpel was used to make an incision. Electrocautery was used to dissect down through subcutaneous tissue down to the fascia. Patient was noted and was previously documented, [place]ogolese cheese abdominal wall multiple hernias. Patient was noted to have colon, small bowel, and omentum intimately adhered to both the anterior abdominal wall and his multiple ventral hernias. An extensive lysis of adhesions was performed with a combination of electrocautery and cold scissor dissection. This took over an hour. The overwhelming majority of the small bowel was noted to be dilated, with some small bowel thickening suggesting of a chronic nature. There was noted to be a long segment of necrotic small bowel that was reduced from 2 of his ventral hernias. After lysis of adhesions, mobilization of the small bowel a 70 cm of necrotic small bowel was resected. The mesentery was taken with an Enseal device. There was noted to be a dusky segment of small bowel remaining, however was decided to reevaluate that segment upon second look at return to the OR in 2 days. Feeling that the majority of the adhesions were , a peritoneal lavage with warm saline was performed. The NG tube was confirmed to be in the stomach in adequate position for GI decompression. And an ABThera abdominal wound VAC was placed and secured to suction. Patient was kept intubated and transferred to ICU in stable condition. All counts were correct. EBL: 200 cc Specimen: 70 cm segment of necrotic small bowel Complication: None immediate
--- NOTE | 2020-12-20 20:50 | Post Anesthesia Evaluation ---
- Post Anesthesia Evaluation Patient Participated: No Airway Patent: Yes Stable Respiratory Function: Yes Nausea/Vomiting: No Temp > 96.8F: Yes Pain Manageable: Yes Adequeate Hydration: Yes Anesthesia Complications: No Block Receding Appropriately: Not Applicable Patient on Ventilator: Yes (To ICU intubated as planned)
--- NOTE | 2020-12-20 21:16 | XRay Report ---
XR chest 1V ap INDICATION / CLINICAL INFORMATION: et tube placement. COMPARISON: 09/12/2020 FINDINGS: SUPPORT DEVICES: Endotracheal tube terminates in the midtrachea. Nasogastric tube detailed centrally. HEART /PULMONARY VASCULATURE: No significant abnormality. LUNGS / PLEURA: There are low lung volumes with patchy bilateral airspace disease. There is relative sparing left upper lung. No pleural effusion. No pneumothorax. ADDITIONAL FINDINGS: No significant additional findings. IMPRESSION: Bilateral airspace opacities, concerning for pneumonia. Endotracheal tube in satisfactory position of the midtrachea. Signer Name: Tyrone Stein MD Signed: 12/20/2020 9:12 PM Workstation Name: [id number]
--- NOTE | 2020-12-20 21:18 | XRay Report ---
XR abdomen 1V ap INDICATION / CLINICAL INFORMATION: NGT PLACEMENT. COMPARISON: Same-day CT FINDINGS/IMPRESSION: The nasogastric tube is coiled within the stomach with distal tip projecting over the GE junction. Si de-port is located in the region of the gastric fundus. Consider repositioning for more optimal place ment. Signer Name: Tyrone Stein MD Signed: 12/20/2020 9:13 PM Workstation Name: [id number]
[2020-12-20 21:41] LABS: ABG Base Excess -1.7 mmol/L (-2.0-3.0); ABG HCO3 25.3 mmol/L (20.0-26.0); ABG Methemoglobin 0.6 % (0.0-1.5); ABG Oxygen Saturation 97.1 % (95.0-99.0); ABG PH 7.313 pH Units (7.350-7.450); ABG PO2 104.4 mm Hg (80.0-90.0)
[2020-12-20] MEDS ORDERED: MINERAL OIL/PETROLATUM, WHITE OPHTH OINT 3.5 GM OU PRN (21:58)
[2020-12-20] MEDS ORDERED: LIP THERAPY VASELINE TP PRN (21:58)
[2020-12-20] MEDS: FAMOTIDINE 20 MG/2 ML INJ IV SCH (22:17)
[2020-12-20] MEDS: PIPERACILLIN/TAZOBACTAM 3.375 3.375 GM/50 ML BAG IV SCH (22:18)
[2020-12-20] MEDS: fentaNYL DRIP Premix 2,000 MCG/100 ML BAG IV SCH (22:18)
[2020-12-20] MEDS: SENNOSIDES/DOCUSATE SODIUM 8.6/50 MG TAB FEEDTUBE SCH (22:19)
[2020-12-21] MEDS: fentaNYL 100 MCG/2 ML INJ IV PRN (03:46)
[2020-12-21] MEDS: PIPERACILLIN/TAZOBACTAM 3.375 3.375 GM/50 ML BAG IV SCH (05:39)
[2020-12-21] MEDS: fentaNYL DRIP Premix 2,000 MCG/100 ML BAG IV SCH ×4 (05:40→17:57)
--- NOTE | 2020-12-21 08:19 | Progress Note ---
Assessment and Plan Assessment and plan: This is a 60-year-old male with obesity, hypertension, nicotine dependence, PVD s/p stent placement on dual antiplatelet therapy, hyperlipidemia, OA, GERD, ventral hernia and small bowel obstruction who was admitted with small bowel obstruction and peritonitis Sepsis, POA (presented with leukocytosis, tachycardia, tachypnea,febrile and evidence of peritonitis) COVID-19 PUI Small bowel obstruction with peritonitis Ventral hernia Leukocytosis Lactic acidosis (resolved) Hyponatremia Hypochloremia Obesity Hypertension Nicotine dependence CAD s/p stent placement Hyperlipidemia Osteoarthritis GERD -[facility], surgery consulted, appreciate recommendations -12/20 CT abdomen/pelvis showed high-grade small bowel obstruction related to severe complex ventral abdominal wall hernias, progressed in appearance from prior exam from 09/12/2020 without evidence of pneumonitis or pneumoperitoneum, patchy bibasilar airspace disease concern for atypical infectious process/pneumonitis -12/20 s/p ex lap, extensive lysis of adhesions, small bowel resection (removal of 70 cm necrotic small bowel segment), peritoneal lavage and ABThera abdominal wound VAC placement -IV abx -NGT to LIWS -NPO for now -Vasopressor support with levophed -COVID-19 PCR negative -On mechanical ventilation, wean as tolerated, VAP bundle -Sedated with propofol and analgesia with fentanyl drip -Antibiotic therapy with Zosyn -Trend CBC, BMP GI/DVT prophylaxis: PPI, SCDs to bilateral lower extremities while in bed, avoid chemical anticoagulation to cleared by surgery Disposition: ICU The high probability of a clinically significant, sudden or life threatening deterioration of the [multi] system(s) required my full and direct attention, intervention and personal management. The aggregate critical care time was [35] minutes. This time is in addition to time spent performing reported procedures but includes the following: [x] Data Review and interpretation [x] Patient assessment and monitoring of vital signs [x] Documentation [x] Medication orders and management History Interval history: This is a 60-year-old male with obesity, hypertension, nicotine dependence, PVD s/p stent placement on dual antiplatelet therapy, hyperlipidemia, OA, GERD, ventral hernia with SBO who presents to the emergency department on 12/20 with severe, diffuse, worsened with movement, slightly relieved with rest abdominal pain rated at 10/10 with decreased oral intake, nausea and multiple episodes of vomiting. Patient underwent a CT of his abdomen/pelvis and was found to have evidence of small bowel obstruction as well as clinical findings consistent with acute peritonitis. Patient was admitted to the hospital service with acute peritonitis and incarcerated ventral hernia with consults to [facility] and surgery. 12/21: Patient is status post ex lap, extensive lysis of adhesions, small bowel resection, peritoneal lavage and ABThera abdominal wound VAC placement by Dr. Tena and Dr. Brumfield on 12/20 with removal of a 70 cm segment of necrotic small bowel. Patient was intubated and sedated on propofol 10/ fent 4 at the time of my examination on Assist-control, rate of 24, PEEP of 6, tidal volume of 550 and FiO2 35%. Patient needed to be deeply sedated and there was a became hypotensive. Patient was started on patient for support with Levophed and received bolus of IVF. Hospitalist Physical - Constitutional Vitals: Temp Pulse Resp BP Pulse Ox 99.9 F H 124 H 26 H 93/61 95 12/21/20 08:00 12/21/20 06:00 12/21/20 06:00 12/21/20 06:00 12/21/20 06:00 General appearance: Present: mild distress, obese, other (sedated) - EENT Eyes: Present: PERRL ENT: poor dentition - Neck Neck: Present: normal ROM - Respiratory Respiratory effort: normal Respiratory: bilateral: diminished - Cardiovascular Rhythm: regular Heart Sounds: Present: S1 & S2. Absent: systolic murmur, diastolic murmur - Extremities Extremities: no ischemia, pulses intact, pulses symmetrical, No edema, normal temperature, normal color - Abdominal General gastrointestinal: soft, tender, absent bowel sounds - Integumentary Integumentary: Present: warm, dry - Psychiatric Psychiatric: other (sedated) - Neurologic Neurologic: other (sedated) - Allied Health Allied health notes reviewed: nursing, RT HEART Score - HEART Score Troponin: Troponin T < 0.010 ng/mL (0.00-0.029) 12/20/20 13:58 Results - Labs CBC & Chem 7: 12/21/20 08:14 12/21/20 08:14 Labs: Laboratory Last Values WBC 41.1 K/mm3 (4.5-11.0) H* 12/20/20 13:58 RBC 5.59 M/mm3 (3.65-5.03) H 12/20/20 13:58 Hgb 16.2 gm/dl (11.8-15.2) H 12/20/20 13:58 Hct 47.7 % (35.5-45.6) H 12/20/20 13:58 MCV 85 fl (84-94) 12/20/20 13:58 MCH 29 pg (28-32) 12/20/20 13:58 MCHC 34 % (32-34) 12/20/20 13:58 RDW 15.5 % (13.2-15.2) H 12/20/20 13:58 Plt Count 486 K/mm3 (140-440) H 12/20/20 13:58 APTT 49.4 Sec. (24.2-36.6) H 12/20/20 13:58 ABG pH 7.464 (7.320-7.450) H 12/21/20 03:06 POC ABG pCO2 39.5 mmHg (32.0-48.0) 12/21/20 03:06 ABG pCO2 51.0 mm Hg 12/20/20 21:30 POC ABG pO2 202.9 mmHg (83-108) H 12/21/20 03:06 ABG pO2 104.4 mm Hg (80.0-90.0) H 12/20/20 21:30 POC ABG HCO3 27.7 12/21/20 03:06 ABG HCO3 25.3 mmol/L (20.0-26.0) 12/20/20 21:30 ABG O2 Saturation 99.2 (0-100) 12/21/20 03:06 ABG O2 Content 20.3 (0.0-44) 12/20/20 21:30 POC ABG Base Excess 3.8 12/21/20 03:06 ABG Base Excess -1.7 mmol/L (-2.0-3.0) 12/20/20 21:30 ABG Hemoglobin 14.3 (12.0-17.5) 12/21/20 03:06 ABG Oxyhemoglobin 98.0 (94-98) 12/21/20 03:06 ABG Carboxyhemoglobin 1.3 % (0.0-5.0) 12/20/20 21:30 ABG Methemoglobin 0.3 (0.0-1.5) 12/21/20 03:06 ABG Sodium 133.7 mmol/L (136.0-145.0) L 12/21/20 03:06 ABG Potassium 4.0 mmol/L (3.40-4.50) 12/21/20 03:06 ABG Chloride 99.0 mmol/L (98-107) 12/21/20 03:06 ABG Glucose 122 mg/dL (65-95) H 12/21/20 03:06 Oxyhemoglobin 95.2 % (95.0-99.0) 12/20/20 21:30 Carboxyhemoglobin 0.9 (0.5-1.5) 12/21/20 03:06 FiO2 100 % 12/20/20 21:30 FiO2 % 100.0 12/21/20 03:06 Sodium 130 mmol/L (137-145) L 12/20/20 13:58 Potassium 4.6 mmol/L (3.6-5.0) 12/20/20 13:58 Chloride 80.7 mmol/L (98-107) L 12/20/20 13:58 Carbon Dioxide 25 mmol/L (22-30) 12/20/20 13:58 Anion Gap 29 mmol/L 12/20/20 13:58 BUN 37 mg/dL (9-20) H 12/20/20 13:58 Creatinine 1.3 mg/dL (0.8-1.3) 12/20/20 13:58 Estimated GFR 57 ml/min 12/20/20 13:58 BUN/Creatinine Ratio 28 % 12/20/20 13:58 Glucose 101 mg/dL (75-100) H 12/20/20 13:58 POC Glucose 122 mg/dL (70-105) H 12/20/20 20:35 Lactic Acid 1.70 mmol/L (0.7-2.0) 12/20/20 16:20 Calcium 8.7 mg/dL (8.4-10.2) 12/20/20 13:58 Total Bilirubin 0.70 mg/dL (0.1-1.2) 12/20/20 13:58 AST 36 units/L (5-40) 12/20/20 13:58 ALT 24 units/L (7-56) 12/20/20 13:58 Alkaline Phosphatase 142 units/L (35-129) H 12/20/20 13:58 Troponin T < 0.010 ng/mL (0.00-0.029) 12/20/20 13:58 Total Protein 6.2 g/dL (6.3-8.2) L 12/20/20 13:58 Albumin 2.2 g/dL (3.9-5) L 12/20/20 13:58 Albumin/Globulin Ratio 0.6 % 12/20/20 13:58 Arterial Blood Glucose 122 mg/dL (65-95) H 12/21/20 03:06 Arterial Blood Ionized Calcium 3.5 mg/dL (4.6-5.3) L 12/21/20 03:06 Urine Color Jenni (Yellow) 12/20/20 Unknown Urine Turbidity Slightly-cloudy (Clear) 12/20/20 Unknown Urine pH 5.0 (5.0-7.0) 12/20/20 Unknown Ur Specific [place] 1.019 (1.003-1.030) 12/20/20 Unknown Urine Protein 30 mg/dl mg/dL (Negative) 12/20/20 Unknown Urine Glucose (UA) Neg mg/dL (Negative) 12/20/20 Unknown Urine Ketones Neg mg/dL (Negative) 12/20/20 Unknown Urine Blood Neg (Negative) 12/20/20 Unknown Urine Nitrite Neg (Negative) 12/20/20 Unknown Urine Bilirubin Neg (Negative) 12/20/20 Unknown Urine Urobilinogen 4.0 mg/dL (<2.0) 12/20/20 Unknown Ur Leukocyte Esterase Neg (Negative) 12/20/20 Unknown Urine WBC (Auto) 1.0 /HPF (0.0-6.0) 12/20/20 Unknown Urine RBC (Auto) 4.0 /HPF (0.0-6.0) 12/20/20 Unknown U Epithel Cells (Auto) < 1.0 /HPF (0-13.0) 12/20/20 Unknown Hyaline Casts 19 /LPF 12/20/20 Unknown Urine Mucus Few /HPF 12/20/20 Unknown Blood Type A NEGATIVE 12/20/20 15:06 Antibody Screen Negative 12/20/20 15:06 Microbiology: Microbiology 12/20/20 13:58 Peripheral/Venous Blood Culture - Preliminary Culture in Progress 12/20/20 13:58 Peripheral/Venous Blood Culture - Preliminary Culture in Progress Lawrence/IV: Voiding Method Indwelling Catheter Active Medications - Current Medications Current Medications: Generic Name Dose Route Start Last Admin Trade Name Alexey PRN Reason Stop Dose Admin Famotidine 20 mg 12/20/20 22:00 12/20/20 22:17 Famotidine 20 Mg/2 Ml Inj IV 20 mg BID ASCENCION Administration Fentanyl 50 mcg 12/20/20 21:58 12/21/20 03:46 Fentanyl 100 Mcg/2 Ml Inj IV 50 mcg Q10MIN PRN Administration ANALGESIA Hydrophilic Ointment 1 applic 12/20/20 21:58 Lip Therapy Vaseline TP Q2HR PRN Dry Lips Fentanyl Citrate 2,000 mcg in 100 mls @ 6.01 mls/hr 12/20/20 22:00 12/21/20 05:40 Fentanyl Drip Premix IV 4 mcg/kg/hr TITR ASCENCION 24.04 mls/hr Administration Protocol 1 MCG/KG/HR Propofol 1,000 mg in 100 mls @ 3.606 mls/hr 12/20/20 22:00 12/20/20 22:30 Diprivan 10 Mg/Ml IV 10 mcg/kg/min TITR ASCENCION 7.212 mls/hr Titration Protocol 5 MCG/KG/MIN Piperacillin Sod/Tazobactam Sod 4.5 gm in 100 mls @ 200 mls/hr 12/21/20 12:00 Zosyn/Ns 4.5gm/100ml IV Q8H ASCENCION Protocol Multi-Ingred Cream/Lotion/Oil/Oint 1 applic 12/20/20 21:58 Mineral Oil/Petrolatum, White Ophth Oint 3.5 Gm OU Q4HR PRN Dry Eye(s) Senna/Docusate Sodium 1 tab 12/20/20 22:00 12/20/20 22:19 Sennosides/Docusate Sodium 8.6/50 Mg Tab FEEDTUBE Not Given BID ASCENCION Sodium Chloride 10 ml 12/20/20 22:00 12/20/20 22:19 Sodium Chloride 0.9% 10 Ml Flush Syringe IV 10 ml BID ASCENCION Administration Sodium Chloride 10 ml 12/20/20 16:42 Sodium Chloride 0.9% 10 Ml Flush Syringe IV PRN PRN LINE FLUSH
[2020-12-21 08:54] LABS: Hematocrit 41.6 % (35.5-45.6); Hemoglobin 13.8 gm/dl (11.8-15.2); Mean Corpuscular HGB Conc 33 % (32-34); Mean Corpuscular Volume 87 fl (84-94); Platelet Count 380 K/mm3 (140-440); Red Blood Count 4.81 M/mm3 (3.65-5.03); Red Cell Distribution Width 15.7 % (13.2-15.2)
[2020-12-21 09:16] LABS: Alanine Aminotransferase 21 units/L (7-56); Albumin 2.3 g/dL (3.9-5); BUN/Creatinine Ratio 38; Blood Urea Nitrogen 46 mg/dL (9-20); Calcium 6.6 mg/dL (8.4-10.2); Hemolysis Index 2
[2020-12-21] MEDS: NORepinephrine/NS 8 MG-250 ML 8 MG/250 ML INFUS..BTL IV SCH ×2 (09:29→21:26)
[2020-12-21 09:38] LABS: Total Cells Counted 100
[2020-12-21 09:39] LABS: Platelet Estimate Consistent w Auto; RBC Morphology Normal
[2020-12-21] MEDS: FAMOTIDINE 20 MG/2 ML INJ IV SCH ×2 (09:39→21:46)
[2020-12-21] MEDS ORDERED: LACTATED RINGERS 1,000 ML ONE (11:21)
[2020-12-21] MEDS ORDERED: LACTATED RINGERS 1,000 ML IV SCH (11:30)
--- NOTE | 2020-12-21 13:05 | Progress Note ---
Assessment and Plan POd#1 s/p ex lap and small bowel resection for necrotic bowel secondary to incarcerated ventral hernia. Tachycardic, borderline hypotensive, leukocytosis consistent with SIRS which is to be expected given pathology. Continue supportive care, since abdomen is open, plan for second look tomorrow and possible anastamosis and closure of abdominal wall. Telephone consent obtained from son Malvin. Subjective Date of service: 12/21/20 Narrative: no acute events overnight. Objective Vital Signs - 12hr 12/21/20 12/21/20 12/21/20 01:00 01:15 01:30 Temperature Pulse Rate 125 H 125 H 127 H Pulse Rate [ From Monitor] Respiratory 27 H 31 H 31 H Rate Blood Pressure 96/63 95/66 95/65 O2 Sat by Pulse 97 97 97 Oximetry 12/21/20 12/21/20 12/21/20 01:45 02:00 02:15 Temperature Pulse Rate 125 H 122 H 124 H Pulse Rate [ From Monitor] Respiratory 28 H 29 H 25 H Rate Blood Pressure 95/64 101/64 84/51 O2 Sat by Pulse 95 96 97 Oximetry 12/21/20 12/21/20 12/21/20 02:30 02:45 03:00 Temperature Pulse Rate 125 H 124 H 125 H Pulse Rate [ From Monitor] Respiratory 32 H 30 H 31 H Rate Blood Pressure 103/58 98/66 98/63 O2 Sat by Pulse 95 96 96 Oximetry 12/21/20 12/21/20 12/21/20 03:15 03:30 03:45 Temperature Pulse Rate 126 H 125 H 124 H Pulse Rate [ From Monitor] Respiratory 32 H 29 H 28 H Rate Blood Pressure 102/60 93/59 103/63 O2 Sat by Pulse 96 96 96 Oximetry 12/21/20 12/21/20 12/21/20 03:46 04:00 04:04 Temperature 100.2 F H Pulse Rate 124 H 124 H Pulse Rate [ From Monitor] Respiratory 30 H 29 H Rate Blood Pressure 98/65 98/65 O2 Sat by Pulse 96 96 Oximetry 12/21/20 12/21/20 12/21/20 04:15 04:30 04:45 Temperature Pulse Rate 126 H 125 H 123 H Pulse Rate [ From Monitor] Respiratory 28 H 27 H 24 Rate Blood Pressure 94/60 94/57 102/64 O2 Sat by Pulse 96 94 95 Oximetry 12/21/20 12/21/20 12/21/20 05:00 05:15 05:30 Temperature Pulse Rate 124 H 127 H 125 H Pulse Rate [ From Monitor] Respiratory 26 H 24 23 Rate Blood Pressure 101/62 99/61 91/61 O2 Sat by Pulse 94 94 95 Oximetry 12/21/20 12/21/20 12/21/20 05:45 06:00 06:15 Temperature Pulse Rate 125 H 124 H 125 H Pulse Rate [ From Monitor] Respiratory 25 H 26 H 20 Rate Blood Pressure 101/60 93/61 89/59 O2 Sat by Pulse 95 95 95 Oximetry 12/21/20 12/21/20 12/21/20 06:30 06:45 07:00 Temperature Pulse Rate 124 H 125 H 126 H Pulse Rate [ From Monitor] Respiratory 20 22 24 Rate Blood Pressure 100/53 91/60 86/61 O2 Sat by Pulse 94 96 96 Oximetry 12/21/20 12/21/20 12/21/20 07:15 07:30 07:45 Temperature Pulse Rate 125 H 126 H 126 H Pulse Rate [ From Monitor] Respiratory 19 20 23 Rate Blood Pressure 88/55 97/58 84/54 O2 Sat by Pulse 96 96 97 Oximetry 12/21/20 12/21/20 12/21/20 08:00 08:15 08:30 Temperature 99.9 F H Pulse Rate 125 H 125 H 127 H Pulse Rate [ 131 H From Monitor] Respiratory 19 17 17 Rate Blood Pressure 100/61 85/52 93/51 O2 Sat by Pulse 96 98 94 Oximetry 12/21/20 12/21/20 12/21/20 08:34 08:46 09:00 Temperature Pulse Rate 129 H 129 H 128 H Pulse Rate [ From Monitor] Respiratory 24 20 Rate Blood Pressure 93/51 93/51 89/51 O2 Sat by Pulse 99 100 96 Oximetry 12/21/20 12/21/20 12/21/20 09:16 09:30 09:45 Temperature Pulse Rate 129 H 129 H 129 H Pulse Rate [ From Monitor] Respiratory 21 20 21 Rate Blood Pressure 89/51 88/55 108/51 O2 Sat by Pulse 97 98 97 Oximetry 12/21/20 12/21/20 10:00 12:00 Temperature 103.1 F H Pulse Rate 130 H Pulse Rate [ From Monitor] Respiratory 19 Rate Blood Pressure 96/45 O2 Sat by Pulse 81 L Oximetry - General physical appearance no distress, no pain, other (sedated on vent) - Respiratory normal expansion, normal respiratory effort - Abdomen soft, other (wound vac in place with minimal SS drainage, NGT small amount gastric drainage in canister) - Labs 12/21/20 08:14 12/21/20 08:14 Diabetes panel 12/20/20 12/21/20 Range/Units 13:58 08:14 Sodium 130 L 141 D (137-145) mmol/L Potassium 4.6 4.6 (3.6-5.0) mmol/L Chloride 80.7 L 98.9 (98-107) mmol/L Carbon Dioxide 25 29 (22-30) mmol/L BUN 37 H 46 H (9-20) mg/dL Creatinine 1.3 1.2 (0.8-1.3) mg/dL Glucose 101 H 103 H (75-100) mg/dL Calcium 8.7 6.6 L D (8.4-10.2) mg/dL AST 36 40 (5-40) units/L ALT 24 21 (7-56) units/L Alkaline Phosphatase 142 H 114 (35-129) units/L Total Protein 6.2 L 5.4 L (6.3-8.2) g/dL Albumin 2.2 L 2.3 L (3.9-5) g/dL Calcium panel 12/20/20 12/21/20 Range/Units 13:58 08:14 Calcium 8.7 6.6 L D (8.4-10.2) mg/dL Albumin 2.2 L 2.3 L (3.9-5) g/dL Pituitary panel 12/20/20 12/21/20 Range/Units 13:58 08:14 Sodium 130 L 141 D (137-145) mmol/L Potassium 4.6 4.6 (3.6-5.0) mmol/L Chloride 80.7 L 98.9 (98-107) mmol/L Carbon Dioxide 25 29 (22-30) mmol/L BUN 37 H 46 H (9-20) mg/dL Creatinine 1.3 1.2 (0.8-1.3) mg/dL Glucose 101 H 103 H (75-100) mg/dL Calcium 8.7 6.6 L D (8.4-10.2) mg/dL Adrenal panel 12/20/20 12/21/20 Range/Units 13:58 08:14 Sodium 130 L 141 D (137-145) mmol/L Potassium 4.6 4.6 (3.6-5.0) mmol/L Chloride 80.7 L 98.9 (98-107) mmol/L Carbon Dioxide 25 29 (22-30) mmol/L BUN 37 H 46 H (9-20) mg/dL Creatinine 1.3 1.2 (0.8-1.3) mg/dL Glucose 101 H 103 H (75-100) mg/dL Calcium 8.7 6.6 L D (8.4-10.2) mg/dL Total Bilirubin 0.70 0.80 (0.1-1.2) mg/dL AST 36 40 (5-40) units/L ALT 24 21 (7-56) units/L Alkaline Phosphatase 142 H 114 (35-129) units/L Total Protein 6.2 L 5.4 L (6.3-8.2) g/dL Albumin 2.2 L 2.3 L (3.9-5) g/dL
--- NOTE | 2020-12-21 13:44 | XRay Report ---
CHEST 1 VIEW INDICATION: central line placement. COMPARISON: Yesterday FINDINGS: Support devices: Endotracheal tube and nasogastric tube remain in good position. A left IJ venous cat heter has been inserted which terminates in the mid SVC. Consider advancement by 2 to 3 cm to the low er SVC. Heart: Stable Lungs/Pleura: Stable bilateral lung opacities concerning for atypical pneumonia or viral infection. N o pleural effusion or pneumothorax is detected. Additional findings: None. IMPRESSION: Left IJ venous catheter placement as described. No pneumothorax. Stable bilateral lung opacities. Signer Name: Kyle Ramirez Jr, MD Signed: 12/21/2020 1:39 PM Workstation Name: [id number]
[2020-12-21] MEDS: PIPERACIL/TAZOBACTA 4.5/NS 100 4.5 GM/100 ML VIAL IV SCH ×2 (13:54→20:17)
[2020-12-21] MEDS: ACETAMINOPHEN 650 MG RECT SUPP PR PRN ×3 (13:54→20:19)
--- NOTE | 2020-12-21 14:33 | Procedure Note ---
Date of procedure: 12/21/20 Pre-op diagnosis: Hypotension Post-op diagnosis: same Procedure: Left IJ placement Emergency line placement as patient was on levophed through a peripheral IV. Using ultrasound guidance and seldinger technique, left IJ accessed and cannulated and catheter placed. Biopatch placed and sutured in. CXR ordered and done and shows adequate position of line. Anesthesia: local Surgeon: EVELYN GARCIA Pathology: none Condition: critical Disposition: ICU
--- NOTE | 2020-12-21 14:39 | Consultation ---
History of Present Illness Consult date: 12/21/20 Requesting physician: KENDRICK LUCIA Reason for consult: other (abdominal catastrophe, open abdomen on vent) History of present illness: 60 y/o morbidly obese male with multiple medial problems admitted to the ICU po st from surgery for complicated abdomen, open and now on vent until he can return to OR. Patient is intubated and sedated so no further history able to be obtained. Past History Past Medical History: arthritis, GERD, hypertension, hyperlipidemia, other (See HPI) Past Surgical History: hernia repair, bowel surgery, Other (Stent placement) Social history: single, prescription drug abuse, other (Narcotic depe ndence/addiction). denies: smoking Family history: hypertension Medications and Allergies Allergies Allergy/AdvReac Type Severity Reaction Status Date / Time Iodinated Contrast Media AdvReac Unknown Verified 09/04/18 14:20 Home Medications Medication Instructions Recorded Confirmed Last Taken Type Aspirin 81 mg PO DAILY #30 tab.chew 09/08/18 09/12/20 03/31/20 09:28 Rx AtorvaSTATin [Lipitor] 80 mg PO QHS tablet 05/08/19 09/12/20 03/28/20 Rx Albuterol Sulfate [Proventil Hfa] 13.4 gm IH Q6H #1 hfa.aer.ad 04/01/20 09/12/20 Unknown Rx Clopidogrel [Plavix] 75 mg PO DAILY #30 tablet 04/01/20 09/12/20 Unknown Rx Gabapentin 300 mg PO BID@0700,1800 30 Days 04/01/20 09/12/20 Unknown Rx capsule Gabapentin 600 mg PO QHS 30 Days capsule 04/01/20 09/12/20 Unknown Rx Metoprolol [Lopressor TAB] 25 mg PO BID #60 tablet 04/01/20 09/12/20 Unknown Rx Oakley-3/Dha/Epa/Fish Oil [[place] 3 1 each PO BID #60 capsule 04/01/20 09/12/20 Unknown Rx 500 Softgel] Tiotropium [place] [Spiriva] 2 puff IH DAILY #30 cap.w.dev 04/01/20 09/12/20 Unknown Rx Ubidecarenone [Co Q-10] 10 mg PO BID #60 tab 04/01/20 09/12/20 03/29/20 Rx cilostazoL [Pletal] 50 mg PO BID 30 Days tablet 04/01/20 09/12/20 Unknown Rx oxyCODONE /ACETAMINOPHEN [Percocet 2 tab PO Q6H PRN tablet 04/01/20 09/12/20 Unknown Rx 5/325 mg] Phosphorus #1 [K-Phos Neutral] 250 mg PO QID 2 Days #8 tablet 09/14/20 Unknown Rx Active Meds: Active Medications Acetaminophen (Acetaminophen 650 Mg Rect Supp) 650 mg TX Q4H PRN PRN Reason: TEMP >/=100.4 Last Admin: 12/21/20 13:54 Dose: 650 mg Documented by: Famotidine (Famotidine 20 Mg/2 Ml Inj) 20 mg IV BID ASCENCION Last Admin: 12/21/20 09:39 Dose: 20 mg Documented by: Fentanyl (Fentanyl 100 Mcg/2 Ml Inj) 50 mcg IV Q10MIN PRN PRN Reason: ANALGESIA Last Admin: 12/21/20 03:46 Dose: 50 mcg Documented by: Hydrophilic Ointment (Lip Therapy Vaseline) 1 applic TP Q2HR PRN PRN Reason: Dry Lips Fentanyl Citrate (Fentanyl Drip Premix) 2,000 mcg in 100 mls @ 6.01 mls/hr IV TITR ASCENCION; Protocol Last Admin: 12/21/20 13:54 Dose: 4 mcg/kg/hr, 24.04 mls/hr Documented by: Propofol (Diprivan 10 Mg/Ml) 1,000 mg in 100 mls @ 3.606 mls/hr IV TITR [facility]ENCION; Protocol Last Admin: 12/21/20 13:03 Dose: 20 mcg/kg/min, 14.424 mls/hr Documented by: Piperacillin Sod/Tazobactam Sod (Zosyn/Ns 4.5gm/100ml) 4.5 gm in 100 mls @ 200 mls/hr IV Q8H [facility]ENC[facility]; Protocol Last Admin: 12/21/20 13:54 Dose: 200 mls/hr Documented by: NORepinephrine/NS 8 MG-250 ML (Norepinephrine/Ns 8 Mg-250 Ml (Double Conc)) 8 mg in 250 mls @ 3.75 mls/hr IV TITRATE [facility]ENC[facility]; Protocol Last Titration: 12/21/20 10:05 Dose: 6 mcg/min, 11.25 mls/hr Documented by: Multi-Ingred Cream/Lotion/Oil/Oint (Mineral Oil/Petrolatum, White Ophth Oint 3.5 Gm) 1 applic OU Q4HR PRN PRN Reason: Dry Eye(s) Senna/Docusate Sodium (Sennosides/Docusate Sodium 8.6/50 Mg Tab) 1 tab FEEDTUBE BID [facility] Last Admin: 12/20/20 22:19 Dose: Not Given Documented by: Sodium Chloride (Sodium Chloride 0.9% 10 Ml Flush Syringe) 10 ml IV BID [facility] Last Admin: 12/21/20 09:40 Dose: 10 ml Documented by: Sodium Chloride (Sodium Chloride 0.9% 10 Ml Flush Syringe) 10 ml IV PRN PRN PRN Reason: LINE FLUSH Physical Examination Vital signs: Vital Signs Temp Pulse Resp BP Pulse Ox 98.6 F 136 H 18 111/72 97 12/20/20 13:17 12/20/20 13:17 12/20/20 13:17 12/20/20 13:17 12/20/20 13:17 Results - Laboratory Findings CBC and BMP: 12/24/20 04:30 12/24/20 04:30 ABG ABG pH 7.464 (7.320-7.450) H 12/21/20 03:06 POC ABG pCO2 39.5 mmHg (32.0-48.0) 12/21/20 03:06 ABG pCO2 51.0 mm Hg 12/20/20 21:30 POC ABG pO2 202.9 mmHg (83-108) H 12/21/20 03:06 ABG pO2 104.4 mm Hg (80.0-90.0) H 12/20/20 21:30 POC ABG HCO3 27.7 12/21/20 03:06 ABG O2 Saturation 99.2 (0-100) 12/21/20 03:06 Abnormal lab findings: Abnormal Labs 12/20/20 12/20/20 12/20/20 13:58 13:58 13:58 WBC 41.1 H* RBC 5.59 H Hgb 16.2 H Hct 47.7 H RDW 15.5 H Plt Count 486 H Seg Neuts % (Manual) Lymphocytes % (Manual) Seg Neutrophils # Man Lymphocytes # (Manual) Monocytes # (Manual) APTT ABG pH POC ABG pO2 ABG pO2 ABG Sodium ABG Glucose Sodium 130 L Chloride 80.7 L BUN 37 H Glucose 101 H POC Glucose Lactic Acid 3.20 H* Calcium Alkaline Phosphatase 142 H Total Protein 6.2 L Albumin 2.2 L Arterial Blood Glucose Arterial Blood Ionized Calcium 12/20/20 12/20/20 12/20/20 13:58 20:35 21:30 WBC RBC Hgb Hct RDW Plt Count Seg Neuts % (Manual) Lymphocytes % (Manual) Seg Neutrophils # Man Lymphocytes # (Manual) Monocytes # (Manual) APTT 49.4 H ABG pH 7.313 L POC ABG pO2 ABG pO2 104.4 H ABG Sodium ABG Glucose Sodium Chloride BUN Glucose POC Glucose 122 H Lactic Acid Calcium Alkaline Phosphatase Total Protein Albumin Arterial Blood Glucose Arterial Blood Ionized Calcium 12/21/20 12/21/20 12/21/20 03:06 08:14 08:14 WBC 23.9 H RBC Hgb Hct RDW 15.7 H Plt Count Seg Neuts % (Manual) 91.0 H Lymphocytes % (Manual) 3.0 L Seg Neutrophils # Man 21.7 H Lymphocytes # (Manual) 0.7 L Monocytes # (Manual) 1.4 H APTT ABG pH 7.464 H POC ABG pO2 202.9 H ABG pO2 ABG Sodium 133.7 L ABG Glucose 122 H Sodium Chloride BUN 46 H Glucose 103 H POC Glucose Lactic Acid Calcium 6.6 L D Alkaline Phosphatase Total Protein 5.4 L Albumin 2.3 L Arterial Blood Glucose 122 H Arterial Blood Ionized Calcium 3.5 L Assessment and Plan 60 y/o male with abdominal catastrophe, s/p ex-lap with open abdomen, ventilated for pain control and support. 1. Adequate sedation to RASS of -4 2 Support BP with meds as needed 3. Aggressive hydration 4. Follow up surgery recs. cct 31 minutes.
[2020-12-21] MEDS ORDERED: SODIUM CHLORIDE 0.9% 500 ML 500 ML ONE (14:51)
[2020-12-21] MEDS ORDERED: SODIUM CHLORIDE 0.9% 1000 ML 1,000 ML ONE (14:52)
[2020-12-21] MEDS: SENNOSIDES/DOCUSATE SODIUM 8.6/50 MG TAB FEEDTUBE SCH ×2 (15:52→21:46)
[2020-12-21] MEDS ORDERED: LACTATED RINGERS 1,000 ML IV ONE (17:38)
[2020-12-22] MEDS: fentaNYL DRIP Premix 2,000 MCG/100 ML BAG IV SCH ×5 (01:12→22:16)
[2020-12-22] MEDS: PIPERACIL/TAZOBACTA 4.5/NS 100 4.5 GM/100 ML VIAL IV SCH ×4 (03:36→21:12)
[2020-12-22 05:37] LABS: Hematocrit 37.6 % (35.5-45.6); Hemoglobin 12.5 gm/dl (11.8-15.2); Mean Corpuscular HGB Conc 33 % (32-34); Mean Corpuscular Volume 86 fl (84-94); Platelet Count 378 K/mm3 (140-440); Red Blood Count 4.35 M/mm3 (3.65-5.03); Red Cell Distribution Width 15.7 % (13.2-15.2)
[2020-12-22 05:59] LABS: Calcium 6.9 mg/dL (8.4-10.2)
[2020-12-22] MEDS: NORepinephrine/NS 8 MG-250 ML 8 MG/250 ML INFUS..BTL IV SCH ×2 (06:56→19:43)
--- NOTE | 2020-12-22 08:06 | XRay Report ---
CHEST 1 VIEW INDICATION: follow up respiratory failure COMPARISON: 12/21/2020 FINDINGS: SUPPORT DEVICES: Central venous lines tip in the innominate vein. Nasogastric tube has tip below diap hragm HEART / MEDIASTINUM: No significant abnormality. LUNGS / PLEURA: Again noted bilateral pulmonary process. No pneumothorax. ADDITIONAL FINDINGS: IMPRESSION: 1. No interval changes compared to previous exam Signer Name: Hola Curiel MD Signed: 12/22/2020 5:17 AM Workstation Name: [id number]
[2020-12-22] MEDS ORDERED: LACTATED RINGERS 1,000 ML IV ONE (08:15)
[2020-12-22] MEDS ORDERED: SODIUM CHLORIDE 0.9% 500 ML 500 ML ONE (09:12)
[2020-12-22] MEDS: FAMOTIDINE 20 MG/2 ML INJ IV SCH ×2 (09:16→21:12)
[2020-12-22] MEDS: ACETAMINOPHEN 650 MG RECT SUPP PR PRN (09:16)
[2020-12-22] MEDS: SENNOSIDES/DOCUSATE SODIUM 8.6/50 MG TAB FEEDTUBE SCH ×2 (09:17→21:12)
[2020-12-22] MEDS ORDERED: VANCOMYCIN 2,000 MG in SODIUM CHLORIDE 0.9% 500 ML 500 ML IV ONE (11:00)
[2020-12-22] MEDS ORDERED: FLUCONAZOLE 400 MG 200 ML IV ONE (11:00)
--- NOTE | 2020-12-22 11:49 | Progress Note ---
Assessment and Plan 60 y/o male with abdominal catastrophe, s/p ex-lap with open abdomen, ventilated for pain control and support. 1. No repeat surgery today, tomorrow 2. Will add Vanc and Diflucan 3. Spoke with surgery, patient had no puss in his abdomen on first surgery 4. Will send blood and urine cultures. 5. Continue current level of sedation given open abdomen 6. Asked nursing to do a thorough check of the skin 7. Guarded prognosis CCT 31 minutes. Subjective Date of service: 12/22/20 Interval history: Spiking temps, now up to 104 via esophageal probe. still hypotensive but improving. Working on getting cooling blanket fixed. Spoke with surgery, not going back to OR today. Objective Vital Signs - 12hr 12/21/20 12/21/20 12/22/20 23:45 23:55 00:00 Temperature 103.4 F H Pulse Rate 119 H 119 H 118 H Pulse Rate [ 118 H From Monitor] Respiratory 9 L 9 L Rate Blood Pressure 109/64 102/64 106/60 O2 Sat by Pulse 97 97 97 Oximetry 12/22/20 12/22/20 12/22/20 00:15 00:30 00:45 Temperature Pulse Rate 120 H 119 H 120 H Pulse Rate [ From Monitor] Respiratory 14 8 L 8 L Rate Blood Pressure 106/60 106/62 106/62 O2 Sat by Pulse 97 96 Oximetry 12/22/20 12/22/20 12/22/20 01:00 01:15 01:30 Temperature Pulse Rate 119 H 120 H 121 H Pulse Rate [ From Monitor] Respiratory 8 L 13 8 L Rate Blood Pressure 104/64 104/64 109/62 O2 Sat by Pulse 97 Oximetry 12/22/20 12/22/20 12/22/20 01:45 02:00 02:15 Temperature Pulse Rate 120 H 120 H 121 H Pulse Rate [ From Monitor] Respiratory 12 24 25 H Rate Blood Pressure 109/62 108/60 108/60 O2 Sat by Pulse 96 96 96 Oximetry 12/22/20 12/22/20 12/22/20 02:30 02:45 03:00 Temperature Pulse Rate 123 H 122 H 121 H Pulse Rate [ From Monitor] Respiratory 25 H 25 H 24 Rate Blood Pressure 108/62 108/62 104/64 O2 Sat by Pulse 95 96 Oximetry 12/22/20 12/22/20 12/22/20 03:15 03:30 03:45 Temperature Pulse Rate 120 H 121 H 121 H Pulse Rate [ From Monitor] Respiratory 24 24 24 Rate Blood Pressure 104/64 104/64 104/64 O2 Sat by Pulse 96 96 Oximetry 12/22/20 12/22/20 12/22/20 04:00 04:15 04:30 Temperature 102.1 F H Pulse Rate 121 H 124 H 125 H Pulse Rate [ 121 H From Monitor] Respiratory 24 18 19 Rate Blood Pressure 103/64 103/64 109/67 O2 Sat by Pulse 97 95 94 Oximetry 12/22/20 12/22/20 12/22/20 04:45 05:00 05:15 Temperature Pulse Rate 122 H 123 H 123 H Pulse Rate [ From Monitor] Respiratory 24 24 12 Rate Blood Pressure 109/67 106/68 106/68 O2 Sat by Pulse 95 95 95 Oximetry 12/22/20 12/22/20 12/22/20 05:18 05:30 05:45 Temperature Pulse Rate 122 H 122 H 123 H Pulse Rate [ From Monitor] Respiratory 9 L 11 L Rate Blood Pressure 106/68 104/62 106/68 O2 Sat by Pulse 97 95 97 Oximetry 12/22/20 12/22/20 12/22/20 06:00 06:15 06:30 Temperature Pulse Rate 119 H 122 H 121 H Pulse Rate [ From Monitor] Respiratory 7 L 5 L 12 Rate Blood Pressure 103/61 103/61 107/60 O2 Sat by Pulse 97 Oximetry 12/22/20 12/22/20 08:00 08:55 Temperature 103.2 F H Pulse Rate 124 H Pulse Rate [ From Monitor] Respiratory Rate Blood Pressure 103/59 O2 Sat by Pulse 95 Oximetry CBC and BMP: 12/22/20 04:45 12/22/20 04:45 ABG, PT/INR, D-dimer: ABG ABG pH 7.462 (7.320-7.450) H 12/22/20 05:00 POC ABG pCO2 36.0 mmHg (32.0-48.0) 12/22/20 05:00 ABG pCO2 51.0 mm Hg 12/20/20 21:30 POC ABG pO2 87.5 mmHg (83-108) 12/22/20 05:00 ABG pO2 104.4 mm Hg (80.0-90.0) H 12/20/20 21:30 POC ABG HCO3 25.1 12/22/20 05:00 ABG O2 Saturation 96.3 (0-100) 12/22/20 05:00 Abnormal lab findings: Abnormal Labs 12/20/20 12/20/20 12/20/20 13:58 13:58 13:58 WBC 41.1 H* RBC 5.59 H Hgb 16.2 H Hct 47.7 H RDW 15.5 H Plt Count 486 H Seg Neuts % (Manual) Lymphocytes % (Manual) Seg Neutrophils # Man Lymphocytes # (Manual) Monocytes # (Manual) APTT ABG pH POC ABG pO2 ABG pO2 ABG Sodium ABG Glucose Sodium 130 L Chloride 80.7 L BUN 37 H Glucose 101 H POC Glucose Lactic Acid 3.20 H* Calcium Alkaline Phosphatase 142 H Total Protein 6.2 L Albumin 2.2 L Arterial Blood Glucose Arterial Blood Ionized Calcium 12/20/20 12/20/20 12/20/20 13:58 20:35 21:30 WBC RBC Hgb Hct RDW Plt Count Seg Neuts % (Manual) Lymphocytes % (Manual) Seg Neutrophils # Man Lymphocytes # (Manual) Monocytes # (Manual) APTT 49.4 H ABG pH 7.313 L POC ABG pO2 ABG pO2 104.4 H ABG Sodium ABG Glucose Sodium Chloride BUN Glucose POC Glucose 122 H Lactic Acid Calcium Alkaline Phosphatase Total Protein Albumin Arterial Blood Glucose Arterial Blood Ionized Calcium 12/21/20 12/21/20 12/21/20 03:06 08:14 08:14 WBC 23.9 H RBC Hgb Hct RDW 15.7 H Plt Count Seg Neuts % (Manual) 91.0 H Lymphocytes % (Manual) 3.0 L Seg Neutrophils # Man 21.7 H Lymphocytes # (Manual) 0.7 L Monocytes # (Manual) 1.4 H APTT ABG pH 7.464 H POC ABG pO2 202.9 H ABG pO2 ABG Sodium 133.7 L ABG Glucose 122 H Sodium Chloride BUN 46 H Glucose 103 H POC Glucose Lactic Acid Calcium 6.6 L D Alkaline Phosphatase Total Protein 5.4 L Albumin 2.3 L Arterial Blood Glucose 122 H Arterial Blood Ionized Calcium 3.5 L 12/21/20 12/22/20 12/22/20 17:18 04:45 04:45 WBC 22.9 H RBC Hgb Hct RDW 15.7 H Plt Count Seg Neuts % (Manual) Lymphocytes % (Manual) Seg Neutrophils # Man Lymphocytes # (Manual) Monocytes # (Manual) APTT ABG pH POC ABG pO2 ABG pO2 ABG Sodium ABG Glucose Sodium 146 H Chloride BUN 45 H Glucose 116 H POC Glucose 108 H Lactic Acid Calcium 6.9 L Alkaline Phosphatase Total Protein Albumin Arterial Blood Glucose Arterial Blood Ionized Calcium 12/22/20 05:00 WBC RBC Hgb Hct RDW Plt Count Seg Neuts % (Manual) Lymphocytes % (Manual) Seg Neutrophils # Man Lymphocytes # (Manual) Monocytes # (Manual) APTT ABG pH 7.462 H POC ABG pO2 ABG pO2 ABG Sodium ABG Glucose 118 H Sodium Chloride BUN Glucose POC Glucose Lactic Acid Calcium Alkaline Phosphatase Total Protein Albumin Arterial Blood Glucose 118 H Arterial Blood Ionized Calcium 3.8 L
--- NOTE | 2020-12-22 12:36 | Consultation ---
History of Present Illness - Reason for Consult Consult date: 12/22/20 septic shock, fever Requesting physician: ALEN CALDERON - History of Present Illness The patient is a 60-year-old male with obesity, hypertension, tobacco abuse, coronary artery disease, admitted to the hospital on 12/20/2020 with abdominal pain with CT evidence of small bowel obstruction and clinical concern for acute abdomen. Patient was seen by general surgery, underwent exploratory laparotomy, extensive adhesiolysis, small bowel resection and peritoneal lavage along with ABThera VAC placement. He was found to have an incarcerated ventral hernia with associated peritonitis. Remains in ICU in critical condition, on pressors. Infectious diseases was consulted to manage antibiotics given persistent fevers with T-max of 103.4 F last night. Review of Systems: Unable to obtain, intubated Past History Past Medical History: arthritis, GERD, hypertension, hyperlipidemia, other (See HPI) Past Surgical History: hernia repair, bowel surgery, Other (Stent placement) Social history: single, prescription drug abuse, other (Narcotic dependence/addiction). denies: smoking Family history: hypertension Medications and Allergies Allergies Allergy/AdvReac Type Severity Reaction Status Date / Time Iodinated Contrast Media AdvReac Unknown Verified 09/04/18 14:20 Home Medications Medication Instructions Recorded Confirmed Last Taken Type Aspirin 81 mg PO DAILY #30 tab.chew 09/08/18 09/12/20 03/31/20 09:28 Rx AtorvaSTATin [Lipitor] 80 mg PO QHS tablet 05/08/19 09/12/20 03/28/20 Rx Albuterol Sulfate [Proventil Hfa] 13.4 gm IH Q6H #1 hfa.aer.ad 04/01/20 09/12/20 Unknown Rx Clopidogrel [Plavix] 75 mg PO DAILY #30 tablet 04/01/20 09/12/20 Unknown Rx Gabapentin 300 mg PO BID@0700,1800 30 Days 04/01/20 09/12/20 Unknown Rx capsule Gabapentin 600 mg PO QHS 30 Days capsule 04/01/20 09/12/20 Unknown Rx Metoprolol [Lopressor TAB] 25 mg PO BID #60 tablet 04/01/20 09/12/20 Unknown Rx [place]-3/Dha/Epa/Fish Oil [[place] 3 1 each PO BID #60 capsule 04/01/20 09/12/20 Unknown Rx 500 Softgel] Tiotropium [place] [Spiriva] 2 puff IH DAILY #30 cap.w.dev 04/01/20 09/12/20 Unknown Rx Ubidecarenone [Co Q-10] 10 mg PO BID #60 tab 04/01/20 09/12/20 03/29/20 Rx cilostazoL [Pletal] 50 mg PO BID 30 Days tablet 04/01/20 09/12/20 Unknown Rx oxyCODONE /ACETAMINOPHEN [Percocet 2 tab PO Q6H PRN tablet 04/01/20 09/12/20 Unknown Rx 5/325 mg] Phosphorus #1 [K-Phos Neutral] 250 mg PO QID 2 Days #8 tablet 09/14/20 Unknown Rx Active Meds: Active Medications Acetaminophen (Acetaminophen 650 Mg Rect Supp) 650 mg IA Q4H PRN PRN Reason: TEMP >/=100.4 Last Admin: 12/22/20 09:16 Dose: 650 mg Documented by: Famotidine (Famotidine 20 Mg/2 Ml Inj) 20 mg IV BID ASCENCION Last Admin: 12/22/20 09:16 Dose: 20 mg Documented by: Fentanyl (Fentanyl 100 Mcg/2 Ml Inj) 50 mcg IV Q10MIN PRN PRN Reason: ANALGESIA Last Admin: 12/21/20 03:46 Dose: 50 mcg Documented by: Hydrophilic Ointment (Lip Therapy Vaseline) 1 applic TP Q2HR PRN PRN Reason: Dry Lips Fentanyl Citrate (Fentanyl Drip Premix) 2,000 mcg in 100 mls @ 6.01 mls/hr IV TITR ASCENCION; Protocol Last Admin: 12/22/20 08:53 Dose: 4 mcg/kg/hr, 24.04 mls/hr Documented by: Propofol (Diprivan 10 Mg/Ml) 1,000 mg in 100 mls @ 3.606 mls/hr IV TITR ASCENCION; Protocol Last Admin: 12/22/20 09:16 Dose: 25 mcg/kg/min, 18.03 mls/hr Documented by: NORepinephrine/NS 8 MG-250 ML (Norepinephrine/Ns 8 Mg-250 Ml (Double Conc)) 8 mg in 250 mls @ 3.75 mls/hr IV TITRATE ASCENCION; Protocol Last Admin: 12/22/20 06:56 Dose: 6.4 mcg/min, 12 mls/hr Documented by: Fluconazole (Diflucan) 200 mls @ 100 mls/hr IV ONCE ONE; Protocol Stop: 12/22/20 12:59 Last Admin: 12/22/20 11:49 Dose: 100 mls/hr Documented by: Fluconazole (Diflucan) 200 mls @ 100 mls/hr IV Q24H [facility]; Protocol Piperacillin Sod/Tazobactam Sod (Zosyn/Ns 4.5gm/100ml) 4.5 gm in 100 mls @ 200 mls/hr IV Q6H [facility]ENC[facility]; Protocol Multi-Ingred Cream/Lotion/Oil/Oint (Mineral Oil/Petrolatum, White Ophth Oint 3.5 Gm) 1 applic OU Q4HR PRN PRN Reason: Dry Eye(s) Senna/Docusate Sodium (Sennosides/Docusate Sodium 8.6/50 Mg Tab) 1 tab FEEDTUBE BID [facility] Last Admin: 12/22/20 09:17 Dose: Not Given Documented by: Sodium Chloride (Sodium Chloride 0.9% 10 Ml Flush Syringe) 10 ml IV BID [facility] Last Admin: 12/21/20 09:40 Dose: 10 ml Documented by: Sodium Chloride (Sodium Chloride 0.9% 10 Ml Flush Syringe) 10 ml IV PRN PRN PRN Reason: LINE FLUSH Physical Examination - Physical Exam Narrative exam: Physical Exam: Constitutional: sedated, intubated, on the vent Head, Ears, Nose: Normocephalic, atraumatic. External ears, nose normal Eyes: Conjunctivae/corneas clear. No icterus. No ptosis. Neck: intubated Oral: intubated Cardiovascular: S1, S2 + Respiratory: AE fair bilaterally and equal GI: ABThera VAC present, bowel sounds absent Musculoskeletal: No pedal edema, no cyanosis. Skin: No rash or abscess Hem/Lymphatic: No palpable cervical or supraclavicular nodes. No lymphangitis Psych: no agitation Neurological: sedated, intubated, on the vent, exam limited - Constitutional Vitals: Vital Signs Temp Pulse Resp BP Pulse Ox 103.2 F H 121 H 16 99/55 94 12/22/20 08:00 12/22/20 12:00 12/22/20 12:00 12/22/20 12:00 12/22/20 12:00 Temperature -Last 24 Hours Temperature 103.2 F Temperature 102.1 F Temperature 101 F Temperature 103.4 F Temperature 102.9 F Temperature 103 F Results - Labs CBC & Chem 7: 12/22/20 04:45 12/22/20 04:45 Labs: Abnormal lab results 12/21/20 12/22/20 12/22/20 Range/Units 17:18 04:45 04:45 WBC 22.9 H (4.5-11.0) K/mm3 RDW 15.7 H (13.2-15.2) % ABG pH (7.320-7.450) ABG Glucose (65-95) mg/dL Sodium 146 H (137-145) mmol/L BUN 45 H (9-20) mg/dL Glucose 116 H (75-100) mg/dL POC Glucose 108 H (70-105) mg/dL Calcium 6.9 L (8.4-10.2) mg/dL Arterial Blood Glucose (65-95) mg/dL Arterial Blood Ionized Calcium (4.6-5.3) mg/dL 12/22/20 12/22/20 Range/Units 05:00 11:38 WBC (4.5-11.0) K/mm3 RDW (13.2-15.2) % ABG pH 7.462 H (7.320-7.450) ABG Glucose 118 H (65-95) mg/dL Sodium (137-145) mmol/L BUN (9-20) mg/dL Glucose (75-100) mg/dL POC Glucose 115 H (70-105) mg/dL Calcium (8.4-10.2) mg/dL Arterial Blood Glucose 118 H (65-95) mg/dL Arterial Blood Ionized Calcium 3.8 L (4.6-5.3) mg/dL - Imaging and Cardiology Chest x-ray: report reviewed, image reviewed (ET tube +) Assessment and Plan Cultures: 12/20/2020 sputum culture: In process 12/20/2020 blood culture: No growth A/P: 60-year-old male with obesity, hypertension, tobacco abuse, coronary artery disease, admitted to the hospital on 12/20/2020 with: #Septic shock: Secondary to intra-abdominal source, peritonitis. Patient with necrotic bowel secondary to incarcerated ventral hernia. Status post expl oratory laparotomy, extensive adhesiolysis, small bowel resection and peritoneal lavage along with ABThera VAC placement on 12/20/2020. #Morbid obesity Recs: Zosyn dose increased to 4.5 g every 6 hours, discussed with pharmacy Fluconazole 400 mg daily Vancomycin not needed Continue supportive care. Noted plans for retrip to [place] on 12/22/2020 Lissette Rizzo MD, FACP [facility] O: [phone] F: [phone]
--- NOTE | 2020-12-22 13:32 | Progress Note ---
<LILIYAMARGE HoyosReagan - Last Filed: 12/22/20 16:01> Assessment and Plan Assessment and plan: This is a 60-year-old male with obesity, hypertension, nicotine dependence, PVD s/p stent placement on dual antiplatelet therapy, hyperlipidemia, OA, GERD, ventral hernia and small bowel obstruction who was admitted with small bowel obstruction and peritonitis Sepsis, POA (presented with leukocytosis, tachycardia, tachypnea,febrile and evidence of peritonitis) COVID-19 PUI Small bowel obstruction with peritonitis Ventral hernia Leukocytosis Hypernatremia Obesity Hypertension Nicotine dependence CAD s/p stent placement Hyperlipidemia Osteoarthritis GERD -[facility], surgery, infectious disease consulted, appreciate recommendations -12/20 CT abdomen/pelvis showed high-grade small bowel obstruction related to severe complex ventral abdominal wall hernias, progressed in appearance from prior exam from 09/12/2020 without evidence of pneumonitis or pneumoperitoneum, patchy bibasilar airspace disease concern for atypical infectious p rocess/pneumonitis -12/20 s/p ex lap, extensive lysis of adhesions, small bowel resection (removal of 70 cm necrotic small bowel segment), peritoneal lavage and ABThera abdominal wound VAC placement -IV abx: Zosyn, Diflucan -NGT to LIWS -NPO for now -Vasopressor support with levophed -COVID-19 PCR negative -On mechanical ventilation, wean as tolerated, VAP bundle -Sedated with propofol and analgesia with fentanyl drip -Trend CBC, BMP GI/DVT prophylaxis: PPI, SCDs to bilateral lower extremities while in bed, avoid chemical anticoagulation to cleared by surgery Disposition: ICU The high probability of a clinically significant, sudden or life threatening deterioration of the [multi] system(s) required my full and direct attention, intervention and personal management. The aggregate critical care time was [35] minutes. This time is in addition to time spent performing reported procedures but includes the following: [x] Data Review and interpretation [x] Patient assessment and monitoring of vital signs [x] Documentation [x] Medication orders and management History Interval history: This is a 60-year-old male with obesity, hypertension, nicotine dependence, PVD s/p stent placement on dual antiplatelet therapy, hyperlipidemia, OA, GERD, ventral hernia with SBO who presents to the emergency department on 12/20 with severe, diffuse, worsened with movement, slightly relieved with rest abdominal pain rated at 10/10 with decreased oral intake, nausea and multiple episodes of vomiting. Patient underwent a CT of his abdomen/pelvis and was found to have evidence of small bowel obstruction as well as clinical findings consistent with acute peritonitis. Patient was admitted to the hospital service with acute peritonitis and incarcerated ventral hernia with consults to [facility] and surgery. 12/21: Patient is status post ex lap, extensive lysis of adhesions, small bowel resection, peritoneal lavage and ABThera abdominal wound VAC placement by Dr. Tena and Dr. Brumfield on 12/20 with removal of a 70 cm segment of necrotic small bowel. Patient was intubated and sedated on propofol 10/ fent 4 at the time of my examination on Assist-control, rate of 24, PEEP of 6, tidal volume of 550 and FiO2 35%. Patient needed to be deeply sedated and there was a became hypotensive. Patient was started on patient for support with Levophed and received bolus of IVF. 12/22: Patient was febrile to 103 and vancomycin and Diflucan were added by [facility] and infectious disease was consulted and they increased Zosyn and stop vancomycin. Patient was given additional 1 L bolus today for CVP goal of 10-12. At the time of examination patient was on Levophed, propofol and fentanyl CMV tidal volume 500, rate of 24, PEEP of 6 and FiO2 65%. Plan for OR tomorrow Hospitalist Physical - Constitutional Vitals: Temp Pulse Resp BP Pulse Ox 103.2 F H 121 H 16 99/55 94 12/22/20 08:00 12/22/20 12:00 12/22/20 12:00 12/22/20 12:00 12/22/20 12:00 General appearance: Present: mild distress, obese, other (sedated) - EENT Eyes: Present: PERRL - Neck Neck: Absent: masses or JVD - Respiratory Respiratory effort: normal Respiratory: bilateral: diminished - Cardiovascular Rhythm: regular Heart Sounds: Present: S1 & S2. Absent: systolic murmur, diastolic murmur - Extremities Extremities: no ischemia, pulses intact, pulses symmetrical, normal temperature, normal color Peripheral Pulses: within normal limits - Abdominal General gastrointestinal: soft, non-tender, non-distended, normal bowel sounds - Integumentary Integumentary: Present: warm, dry - Psychiatric Psychiatric: other (sedated) - Neurologic Neurologic: other (sedated) - Allied Health Allied health notes reviewed: nursing, RT HEART Score - HEART Score Troponin: Troponin T < 0.010 ng/mL (0.00-0.029) 12/20/20 13:58 Results - Labs CBC & Chem 7: 12/22/20 04:45 12/22/20 04:45 Labs: Laboratory Last Values WBC 22.9 K/mm3 (4.5-11.0) H 12/22/20 04:45 RBC 4.35 M/mm3 (3.65-5.03) 12/22/20 04:45 Hgb 12.5 gm/dl (11.8-15.2) 12/22/20 04:45 Hct 37.6 % (35.5-45.6) 12/22/20 04:45 MCV 86 fl (84-94) 12/22/20 04:45 MCH 29 pg (28-32) 12/22/20 04:45 MCHC 33 % (32-34) 12/22/20 04:45 RDW 15.7 % (13.2-15.2) H 12/22/20 04:45 Plt Count 378 K/mm3 (140-440) 12/22/20 04:45 Add Manual Diff Complete 12/21/20 08:14 Total Counted 100 12/21/20 08:14 Seg Neutrophils % [place] Operator 12/21/20 08:14 Seg Neuts % (Manual) 91.0 % (40.0-70.0) H 12/21/20 08:14 Lymphocytes % (Manual) 3.0 % (13.4-35.0) L 12/21/20 08:14 Monocytes % (Manual) 6.0 % (0.0-7.3) 12/21/20 08:14 Nucleated RBC % Not Reportable 12/21/20 08:14 Seg Neutrophils # Man 21.7 K/mm3 (1.8-7.7) H 12/21/20 08:14 Band Neutrophils # 0.0 K/mm3 12/21/20 08:14 Lymphocytes # (Manual) 0.7 K/mm3 (1.2-5.4) L 12/21/20 08:14 Abs React Lymphs (Man) 0.0 K/mm3 12/21/20 08:14 Monocytes # (Manual) 1.4 K/mm3 (0.0-0.8) H 12/21/20 08:14 Eosinophils # (Manual) 0.0 K/mm3 (0.0-0.4) 12/21/20 08:14 Basophils # (Manual) 0.0 K/mm3 (0.0-0.1) 12/21/20 08:14 Metamyelocytes # 0.0 K/mm3 12/21/20 08:14 Myelocytes # 0.0 K/mm3 12/21/20 08:14 Promyelocytes # 0.0 K/mm3 12/21/20 08:14 Blast Cells # 0.0 K/mm3 12/21/20 08:14 WBC Morphology Not Reportable 12/21/20 08:14 Hypersegmented Neuts Not Reportable 12/21/20 08:14 Hyposegmented Neuts Not Reportable 12/21/20 08:14 Hypogranular Neuts Not Reportable 12/21/20 08:14 Smudge Cells Not Reportable 12/21/20 08:14 Toxic Granulation Not Reportable 12/21/20 08:14 Toxic Vacuolation Not Reportable 12/21/20 08:14 Dohle Bodies Not Reportable 12/21/20 08:14 Pelger-Huet Anomaly Not Reportable 12/21/20 08:14 Mirian Rods Not Reportable 12/21/20 08:14 Platelet Estimate Consistent w auto 12/21/20 08:14 Clumped Platelets Not Reportable 12/21/20 08:14 Plt Clumps, EDTA Not Reportable 12/21/20 08:14 Large Platelets Not Reportable 12/21/20 08:14 Giant Platelets Not Reportable 12/21/20 08:14 Platelet Satelliting Not Reportable 12/21/20 08:14 Plt Morphology Comment Not Reportable 12/21/20 08:14 RBC Morphology Normal 12/21/20 08:14 Dimorphic RBCs Not Reportable 12/21/20 08:14 Polychromasia Not Reportable 12/21/20 08:14 Hypochromasia Not Reportable 12/21/20 08:14 Poikilocytosis Not Reportable 12/21/20 08:14 Anisocytosis Not Reportable 12/21/20 08:14 Microcytosis Not Reportable 12/21/20 08:14 Macrocytosis Not Reportable 12/21/20 08:14 Spherocytes Not Reportable 12/21/20 08:14 Pappenheimer Bodies Not Reportable 12/21/20 08:14 Sickle Cells Not Reportable 12/21/20 08:14 Target Cells Not Reportable 12/21/20 08:14 Tear Drop Cells Not Reportable 12/21/20 08:14 Ovalocytes Not Reportable 12/21/20 08:14 Helmet Cells Not Reportable 12/21/20 08:14 [place] Bodies Not Reportable 12/21/20 08:14 [place] Rings Not Reportable 12/21/20 08:14 [place] Cells Not Reportable 12/21/20 08:14 Bite Cells Not Reportable 12/21/20 08:14 Crenated Cell Not Reportable 12/21/20 08:14 Elliptocytes Not Reportable 12/21/20 08:14 Acanthocytes (Spur) Not Reportable 12/21/20 08:14 Rouleaux Not Reportable 12/21/20 08:14 Hemoglobin C Crystals Not Reportable 12/21/20 08:14 Schistocytes Not Reportable 12/21/20 08:14 Malaria parasites Not Reportable 12/21/20 08:14 [place] Bodies Not Reportable 12/21/20 08:14 Hem Pathologist Commnt No 12/21/20 08:14 APTT 49.4 Sec. (24.2-36.6) H 12/20/20 13:58 ABG pH 7.462 (7.320-7.450) H 12/22/20 05:00 POC ABG pCO2 36.0 mmHg (32.0-48.0) 12/22/20 05:00 ABG pCO2 51.0 mm Hg 12/20/20 21:30 POC ABG pO2 87.5 mmHg (83-108) 12/22/20 05:00 ABG pO2 104.4 mm Hg (80.0-90.0) H 12/20/20 21:30 POC ABG HCO3 25.1 12/22/20 05:00 ABG HCO3 25.3 mmol/L (20.0-26.0) 12/20/20 21:30 ABG O2 Saturation 96.3 (0-100) 12/22/20 05:00 ABG O2 Content 20.3 (0.0-44) 12/20/20 21:30 POC ABG Base Excess 1.6 12/22/20 05:00 ABG Base Excess -1.7 mmol/L (-2.0-3.0) 12/20/20 21:30 ABG Hemoglobin 12.8 (12.0-17.5) 12/22/20 05:00 ABG Oxyhemoglobin 95.0 (94-98) 12/22/20 05:00 ABG Carboxyhemoglobin 1.3 % (0.0-5.0) 12/20/20 21:30 ABG Methemoglobin 0.3 (0.0-1.5) 12/22/20 05:00 ABG Sodium 142.7 mmol/L (136.0-145.0) 12/22/20 05:00 ABG Potassium 4.1 mmol/L (3.40-4.50) 12/22/20 05:00 ABG Chloride 106.0 mmol/L (98-107) 12/22/20 05:00 ABG Glucose 118 mg/dL (65-95) H 12/22/20 05:00 Oxyhemoglobin 95.2 % (95.0-99.0) 12/20/20 21:30 Carboxyhemoglobin 1.0 (0.5-1.5) 12/22/20 05:00 FiO2 100 % 12/20/20 21:30 FiO2 % 65.0 12/22/20 05:00 Sodium 146 mmol/L (137-145) H 12/22/20 04:45 Potassium 4.2 mmol/L (3.6-5.0) 12/22/20 04:45 Chloride 104.2 mmol/L (98-107) 12/22/20 04:45 Carbon Dioxide 30 mmol/L (22-30) 12/22/20 04:45 Anion Gap 16 mmol/L 12/22/20 04:45 BUN 45 mg/dL (9-20) H 12/22/20 04:45 Creatinine 1.3 mg/dL (0.8-1.3) 12/22/20 04:45 Estimated GFR 57 ml/min 12/22/20 04:45 BUN/Creatinine Ratio 35 % 12/22/20 04:45 Glucose 116 mg/dL (75-100) H 12/22/20 04:45 POC Glucose 115 mg/dL (70-105) H 12/22/20 11:38 Lactic Acid 1.70 mmol/L (0.7-2.0) 12/20/20 16:20 Calcium 6.9 mg/dL (8.4-10.2) L 12/22/20 04:45 Total Bilirubin 0.80 mg/dL (0.1-1.2) 12/21/20 08:14 AST 40 units/L (5-40) 12/21/20 08:14 ALT 21 units/L (7-56) 12/21/20 08:14 Alkaline Phosphatase 114 units/L (35-129) 12/21/20 08:14 Troponin T < 0.010 ng/mL (0.00-0.029) 12/20/20 13:58 Total Protein 5.4 g/dL (6.3-8.2) L 12/21/20 08:14 Albumin 2.3 g/dL (3.9-5) L 12/21/20 08:14 Albumin/Globulin Ratio 0.7 % 12/21/20 08:14 Arterial Blood Glucose 118 mg/dL (65-95) H 12/22/20 05:00 Arterial Blood Ionized Calcium 3.8 mg/dL (4.6-5.3) L 12/22/20 05:00 Urine Color Jenni (Yellow) 12/20/20 Unknown Urine Turbidity Slightly-cloudy (Clear) 12/20/20 Unknown Urine pH 5.0 (5.0-7.0) 12/20/20 Unknown Ur Specific [place] 1.019 (1.003-1.030) 12/20/20 Unknown Urine Protein 30 mg/dl mg/dL (Negative) 12/20/20 Unknown Urine Glucose (UA) Neg mg/dL (Negative) 12/20/20 Unknown Urine Ketones Neg mg/dL (Negative) 12/20/20 Unknown Urine Blood Neg (Negative) 12/20/20 Unknown Urine Nitrite Neg (Negative) 12/20/20 Unknown Urine Bilirubin Neg (Negative) 12/20/20 Unknown Urine Urobilinogen 4.0 mg/dL (<2.0) 12/20/20 Unknown Ur Leukocyte Esterase Neg (Negative) 12/20/20 Unknown Urine WBC (Auto) 1.0 /HPF (0.0-6.0) 12/20/20 Unknown Urine RBC (Auto) 4.0 /HPF (0.0-6.0) 12/20/20 Unknown U Epithel Cells (Auto) < 1.0 /HPF (0-13.0) 12/20/20 Unknown Hyaline Casts 19 /LPF 12/20/20 Unknown Urine Mucus Few /HPF 12/20/20 Unknown Coronavirus (PCR) Negative (Negative) 12/21/20 Unknown Blood Type A NEGATIVE 12/20/20 15:06 Antibody Screen Negative 12/20/20 15:06 Microbiology: Microbiology 12/20/20 04:50 Tracheal Aspirate Sputum Culture - Preliminary 12/20/20 13:58 Peripheral/Venous Blood Culture - Preliminary NO GROWTH AFTER 24 HOURS 12/20/20 13:58 Peripheral/Venous Blood Culture - Preliminary NO GROWTH AFTER 24 HOURS Lawrence/IV: Voiding Method Indwelling Catheter Active Medications - Current Medications Current Medications: Generic Name Dose Route Start Last Admin Trade Name Freq PRN Reason Stop Dose Admin Acetaminophen 650 mg 12/21/20 11:51 12/22/20 09:16 Acetaminophen 650 Mg Rect Supp IN 650 mg Q4H PRN Administration TEMP >/=100.4 Famotidine 20 mg 12/20/20 22:00 12/22/20 09:16 Famotidine 20 Mg/2 Ml Inj IV 20 mg BID ASCENCION Administration Fentanyl 50 mcg 12/20/20 21:58 12/21/20 03:46 Fentanyl 100 Mcg/2 Ml Inj IV 50 mcg Q10MIN PRN Administration ANALGESIA Hydrophilic Ointment 1 applic 12/20/20 21:58 Lip Therapy Vaseline TP Q2HR PRN Dry Lips Fentanyl Citrate 2,000 mcg in 100 mls @ 6.01 mls/hr 12/20/20 22:00 12/22/20 13:22 Fentanyl Drip Premix IV 4 mcg/kg/hr TITR ASCENCION 24.04 mls/hr Administration Protocol 1 MCG/KG/HR Propofol 1,000 mg in 100 mls @ 3.606 mls/hr 12/20/20 22:00 12/22/20 09:16 Diprivan 10 Mg/Ml IV 25 mcg/kg/min TITR ASCENCION 18.03 mls/hr Administration Protocol 5 MCG/KG/MIN NORepinephrine/NS 8 MG-250 ML 8 mg in 250 mls @ 3.75 mls/hr 12/21/20 09:00 06/03/21 06:56 Norepinephrine/Ns 8 Mg-250 Ml (Double Conc) IV 6.4 mcg/min TITRATE ASCENCION 12 mls/hr Administration Protocol 2 MCG/MIN Fluconazole 200 mls @ 100 mls/hr 12/23/20 13:00 Diflucan IV Q24H ASCENCION Protocol Piperacillin Sod/Tazobactam Sod 4.5 gm in 100 mls @ 200 mls/hr 12/22/20 13:00 Zosyn/Ns 4.5gm/100ml IV Q6H ASCENCION Protocol Multi-Ingred Cream/Lotion/Oil/Oint 1 applic 12/20/20 21:58 Mineral Oil/Petrolatum, White Ophth Oint 3.5 Gm OU Q4HR PRN Dry Eye(s) Senna/Docusate Sodium 1 tab 12/20/20 22:00 12/22/20 09:17 Sennosides/Docusate Sodium 8.6/50 Mg Tab FEEDTUBE Not Given BID ASCENCION Sodium Chloride 10 ml 12/20/20 22:00 12/21/20 09:40 Sodium Chloride 0.9% 10 Ml Flush Syringe IV 10 ml BID ASCENCION Administration Sodium Chloride 10 ml 12/20/20 16:42 Sodium Chloride 0.9% 10 Ml Flush Syringe IV PRN PRN LINE FLUSH Nutrition/Malnutrition Assess - Dietary Evaluation Nutrition/Malnutrition Findings: Nutrition Notes Start: 12/21/20 09:06 Freq: Status: Active Protocol: Document 12/21/20 09:06 (Rec: 12/21/20 09:14 [email or web address]) Nutrition Notes Need for Assessment generated from: MD Order Initial or Follow up Assessment Current Diagnosis Coronary Artery Disease, Hypertension,Small Bowel Obstruction,Hyperlipidemia Other Pertinent Diagnosis peritonitis Current Diet NPO Labs/Tests 12/20: Na 130 Pertinent Medications Propofol at 7.212 ml/hr (190 kcal) Height 6 ft Weight 120.202 kg [place] Body Weight (kg) 80.90 BMI 35.9 Weight Status Morbidly Obese Subjective/Other Information MD consult to eval nutritional intakes. 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 Pt now s/p exlap with 70 cm small bowel removal and lysis of adhesions. Pt has NGT to LIS. Burn Absent Trauma Absent Current % PO Negligible Minimum of two criteria No physical signs of malnutrition #2 Nutrition Diagnosis Increased nutrient needs ( specify in comment below) Comments: protein Etiology wound healing As Evidenced by Signs and Symptoms midline surgical wound to abd #1 Nutrition Diagnosis Inadequate oral intake Etiology ARF, SBO As Evidenced by Signs and Symptoms pt on vent and unable to consume PO, NGT to LIWS Is patient on ventilator? Yes Is Patient Ambulatory and/or Out of Bed No REE-([place]-St. Jeor-confined to bed) 2470.248 Kcal/Kg value to use for calculation 17 Approximate Energy Requirements Using 2042 kcal/Kg Calculation Used for Recommendations Kcal/kg Additional Notes Protein: Up to 2.5g/IBW (up to 202g) Fluid: 1 ml/kcal or per MD Nutrition Intervention Change Diet Order: Start TF when medically able Nutrition Support: Vital AF at 70 ml/hr Flush 100 ml q4h Kcal 2,016 Protein (gm) 126 Fluid (mL) 1,362 Goal #1 Start TF when medically able Anticipated Discharge Needs: Unable to determine at this time Follow-Up By: 12/23/20 Additional Comments FU for plan of care <ALEN CALDERON - Last Filed: 12/22/20 17:43> Assessment and Plan Assessment and plan: This is a 60-year-old male with obesity, hypertension, nicotine dependence, PVD s/p stent placement on dual antiplatelet therapy, hyperlipidemia, OA, GERD, ventral hernia and small bowel obstruction who was admitted with small bowel obstruction and peritonitis. he is s/p ex lap, extensive lysis of adhesions, small bowel resection (removal of 70 cm necrotic small bowel segment), peritoneal lavage and ABThera abdominal wound VAC placement. I have seen and evaluated the patient and discussed with Nurse Practitioner. I agree with the findings and the plan of care as documented in the Nurse Practitioner's note. Hospitalist Physical - Constitutional Vitals: Temp Pulse Resp BP Pulse Ox 103.2 F H 116 H 20 103/58 95 12/22/20 08:00 12/22/20 16:00 12/22/20 16:00 12/22/20 16:00 12/22/20 16:00 HEART Score - HEART Score Troponin: Troponin T < 0.010 ng/mL (0.00-0.029) 12/20/20 13:58 Results - Labs CBC & Chem 7: 12/22/20 04:45 12/22/20 04:45 Labs: Laboratory Last Values WBC 22.9 K/mm3 (4.5-11.0) H 12/22/20 04:45 RBC 4.35 M/mm3 (3.65-5.03) 12/22/20 04:45 Hgb 12.5 gm/dl (11.8-15.2) 12/22/20 04:45 Hct 37.6 % (35.5-45.6) 12/22/20 04:45 MCV 86 fl (84-94) 12/22/20 04:45 MCH 29 pg (28-32) 12/22/20 04:45 MCHC 33 % (32-34) 12/22/20 04:45 RDW 15.7 % (13.2-15.2) H 12/22/20 04:45 Plt Count 378 K/mm3 (140-440) 12/22/20 04:45 Add Manual Diff Complete 12/21/20 08:14 Total Counted 100 12/21/20 08:14 Seg Neutrophils % [place] Operator 12/21/20 08:14 Seg Neuts % (Manual) 91.0 % (40.0-70.0) H 12/21/20 08:14 Lymphocytes % (Manual) 3.0 % (13.4-35.0) L 12/21/20 08:14 Monocytes % (Manual) 6.0 % (0.0-7.3) 12/21/20 08:14 Nucleated RBC % Not Reportable 12/21/20 08:14 Seg Neutrophils # Man 21.7 K/mm3 (1.8-7.7) H 12/21/20 08:14 Band Neutrophils # 0.0 K/mm3 12/21/20 08:14 Lymphocytes # (Manual) 0.7 K/mm3 (1.2-5.4) L 12/21/20 08:14 Abs React Lymphs (Man) 0.0 K/mm3 12/21/20 08:14 Monocytes # (Manual) 1.4 K/mm3 (0.0-0.8) H 12/21/20 08:14 Eosinophils # (Manual) 0.0 K/mm3 (0.0-0.4) 12/21/20 08:14 Basophils # (Manual) 0.0 K/mm3 (0.0-0.1) 12/21/20 08:14 Metamyelocytes # 0.0 K/mm3 12/21/20 08:14 Myelocytes # 0.0 K/mm3 12/21/20 08:14 Promyelocytes # 0.0 K/mm3 12/21/20 08:14 Blast Cells # 0.0 K/mm3 12/21/20 08:14 WBC Morphology Not Reportable 12/21/20 08:14 Hypersegmented Neuts Not Reportable 12/21/20 08:14 Hyposegmented Neuts Not Reportable 12/21/20 08:14 Hypogranular Neuts Not Reportable 12/21/20 08:14 Smudge Cells Not Reportable 12/21/20 08:14 Toxic Granulation Not Reportable 12/21/20 08:14 Toxic Vacuolation Not Reportable 12/21/20 08:14 Dohle Bodies Not Reportable 12/21/20 08:14 Pelger-Huet Anomaly Not Reportable 12/21/20 08:14 Mirian Rods Not Reportable 12/21/20 08:14 Platelet Estimate Consistent w auto 12/21/20 08:14 Clumped Platelets Not Reportable 12/21/20 08:14 Plt Clumps, EDTA Not Reportable 12/21/20 08:14 Large Platelets Not Reportable 12/21/20 08:14 Giant Platelets Not Reportable 12/21/20 08:14 Platelet Satelliting Not Reportable 12/21/20 08:14 Plt Morphology Comment Not Reportable 12/21/20 08:14 RBC Morphology Normal 12/21/20 08:14 Dimorphic RBCs Not Reportable 12/21/20 08:14 Polychromasia Not Reportable 12/21/20 08:14 Hypochromasia Not Reportable 12/21/20 08:14 Poikilocytosis Not Reportable 12/21/20 08:14 Anisocytosis Not Reportable 12/21/20 08:14 Microcytosis Not Reportable 12/21/20 08:14 Macrocytosis Not Reportable 12/21/20 08:14 Spherocytes Not Reportable 12/21/20 08:14 Pappenheimer Bodies Not Reportable 12/21/20 08:14 Sickle Cells Not Reportable 12/21/20 08:14 Target Cells Not Reportable 12/21/20 08:14 Tear Drop Cells Not Reportable 12/21/20 08:14 Ovalocytes Not Reportable 12/21/20 08:14 Helmet Cells Not Reportable 12/21/20 08:14 [place] Bodies Not Reportable 12/21/20 08:14 [place] Rings Not Reportable 12/21/20 08:14 [place] Cells Not Reportable 12/21/20 08:14 Bite Cells Not Reportable 12/21/20 08:14 Crenated Cell Not Reportable 12/21/20 08:14 Elliptocytes Not Reportable 12/21/20 08:14 Acanthocytes (Spur) Not Reportable 12/21/20 08:14 Rouleaux Not Reportable 12/21/20 08:14 Hemoglobin C Crystals Not Reportable 12/21/20 08:14 Schistocytes Not Reportable 12/21/20 08:14 Malaria parasites Not Reportable 12/21/20 08:14 Dylon Bodies Not Reportable 12/21/20 08:14 Hem Pathologist Commnt No 12/21/20 08:14 APTT 49.4 Sec. (24.2-36.6) H 12/20/20 13:58 ABG pH 7.462 (7.320-7.450) H 12/22/20 05:00 POC ABG pCO2 36.0 mmHg (32.0-48.0) 12/22/20 05:00 ABG pCO2 51.0 mm Hg 12/20/20 21:30 POC ABG pO2 87.5 mmHg (83-108) 12/22/20 05:00 ABG pO2 104.4 mm Hg (80.0-90.0) H 12/20/20 21:30 POC ABG HCO3 25.1 12/22/20 05:00 ABG HCO3 25.3 mmol/L (20.0-26.0) 12/20/20 21:30 ABG O2 Saturation 96.3 (0-100) 12/22/20 05:00 ABG O2 Content 20.3 (0.0-44) 12/20/20 21:30 POC ABG Base Excess 1.6 12/22/20 05:00 ABG Base Excess -1.7 mmol/L (-2.0-3.0) 12/20/20 21:30 ABG Hemoglobin 12.8 (12.0-17.5) 12/22/20 05:00 ABG Oxyhemoglobin 95.0 (94-98) 12/22/20 05:00 ABG Carboxyhemoglobin 1.3 % (0.0-5.0) 12/20/20 21:30 ABG Methemoglobin 0.3 (0.0-1.5) 12/22/20 05:00 ABG Sodium 142.7 mmol/L (136.0-145.0) 12/22/20 05:00 ABG Potassium 4.1 mmol/L (3.40-4.50) 12/22/20 05:00 ABG Chloride 106.0 mmol/L (98-107) 12/22/20 05:00 ABG Glucose 118 mg/dL (65-95) H 12/22/20 05:00 Oxyhemoglobin 95.2 % (95.0-99.0) 12/20/20 21:30 Carboxyhemoglobin 1.0 (0.5-1.5) 12/22/20 05:00 FiO2 100 % 12/20/20 21:30 FiO2 % 65.0 12/22/20 05:00 Sodium 146 mmol/L (137-145) H 12/22/20 04:45 Potassium 4.2 mmol/L (3.6-5.0) 12/22/20 04:45 Chloride 104.2 mmol/L (98-107) 12/22/20 04:45 Carbon Dioxide 30 mmol/L (22-30) 12/22/20 04:45 Anion Gap 16 mmol/L 12/22/20 04:45 BUN 45 mg/dL (9-20) H 12/22/20 04:45 Creatinine 1.3 mg/dL (0.8-1.3) 12/22/20 04:45 Estimated GFR 57 ml/min 12/22/20 04:45 BUN/Creatinine Ratio 35 % 12/22/20 04:45 Glucose 116 mg/dL (75-100) H 12/22/20 04:45 POC Glucose 115 mg/dL (70-105) H 12/22/20 11:38 Lactic Acid 1.70 mmol/L (0.7-2.0) 12/20/20 16:20 Calcium 6.9 mg/dL (8.4-10.2) L 12/22/20 04:45 Total Bilirubin 0.80 mg/dL (0.1-1.2) 12/21/20 08:14 AST 40 units/L (5-40) 12/21/20 08:14 ALT 21 units/L (7-56) 12/21/20 08:14 Alkaline Phosphatase 114 units/L (35-129) 12/21/20 08:14 Troponin T < 0.010 ng/mL (0.00-0.029) 12/20/20 13:58 Total Protein 5.4 g/dL (6.3-8.2) L 12/21/20 08:14 Albumin 2.3 g/dL (3.9-5) L 12/21/20 08:14 Albumin/Globulin Ratio 0.7 % 12/21/20 08:14 Arterial Blood Glucose 118 mg/dL (65-95) H 12/22/20 05:00 Arterial Blood Ionized Calcium 3.8 mg/dL (4.6-5.3) L 12/22/20 05:00 Urine Color Jenni (Yellow) 12/20/20 Unknown Urine Turbidity Slightly-cloudy (Clear) 12/20/20 Unknown Urine pH 5.0 (5.0-7.0) 12/20/20 Unknown Ur Specific [place] 1.019 (1.003-1.030) 12/20/20 Unknown Urine Protein 30 mg/dl mg/dL (Negative) 12/20/20 Unknown Urine Glucose (UA) Neg mg/dL (Negative) 12/20/20 Unknown Urine Ketones Neg mg/dL (Negative) 12/20/20 Unknown Urine Blood Neg (Negative) 12/20/20 Unknown Urine Nitrite Neg (Negative) 12/20/20 Unknown Urine Bilirubin Neg (Negative) 12/20/20 Unknown Urine Urobilinogen 4.0 mg/dL (<2.0) 12/20/20 Unknown Ur Leukocyte Esterase Neg (Negative) 12/20/20 Unknown Urine WBC (Auto) 1.0 /HPF (0.0-6.0) 12/20/20 Unknown Urine RBC (Auto) 4.0 /HPF (0.0-6.0) 12/20/20 Unknown U Epithel Cells (Auto) < 1.0 /HPF (0-13.0) 12/20/20 Unknown Hyaline Casts 19 /LPF 12/20/20 Unknown Urine Mucus Few /HPF 12/20/20 Unknown Coronavirus (PCR) Negative (Negative) 12/21/20 Unknown Blood Type A NEGATIVE 12/20/20 15:06 Antibody Screen Negative 12/20/20 15:06 Microbiology: Microbiology 12/20/20 13:58 Peripheral/Venous Blood Culture - Preliminary NO GROWTH AFTER 48 HOURS 12/20/20 13:58 Peripheral/Venous Blood Culture - Preliminary NO GROWTH AFTER 48 HOURS 12/20/20 Unknown Urine,Clean Catch Urine Culture - Preliminary 12/20/20 04:50 Tracheal Aspirate Sputum Culture - Preliminary [place]/IV: Voiding Method Indwelling Catheter Active Medications - Current Medications Current Medications: Generic Name Dose Route Start Last Admin Trade Name Freq PRN Reason Stop Dose Admin Acetaminophen 650 mg 12/21/20 11:51 12/22/20 09:16 Acetaminophen 650 Mg Rect Supp IN 650 mg Q4H PRN Administration TEMP >/=100.4 Famotidine 20 mg 12/20/20 22:00 12/22/20 09:16 Famotidine 20 Mg/2 Ml Inj IV 20 mg BID ASCENCION Administration Fentanyl 50 mcg 12/20/20 21:58 12/21/20 03:46 Fentanyl 100 Mcg/2 Ml Inj IV 50 mcg Q10MIN PRN Administration ANALGESIA Hydrophilic Ointment 1 applic 12/20/20 21:58 Lip Therapy Vaseline TP Q2HR PRN Dry Lips Fentanyl Citrate 2,000 mcg in 100 mls @ 6.01 mls/hr 12/20/20 22:00 12/22/20 13:22 Fentanyl Drip Premix IV 4 mcg/kg/hr TITR ASCENCION 24.04 mls/hr Administration Protocol 1 MCG/KG/HR Propofol 1,000 mg in 100 mls @ 3.606 mls/hr 12/20/20 22:00 12/22/20 17:18 Diprivan 10 Mg/Ml IV 25 mcg/kg/min TITR ASCENCION 18.03 mls/hr Administration Protocol 5 MCG/KG/MIN NORepinephrine/NS 8 MG-250 ML 8 mg in 250 mls @ 3.75 mls/hr 12/21/20 09:00 12/22/20 06:56 Norepinephrine/Ns 8 Mg-250 Ml (Double Conc) IV 6.4 mcg/min TITRATE ASCENCION 12 mls/hr Administration Protocol 2 MCG/MIN Fluconazole 200 mls @ 100 mls/hr 12/23/20 13:00 Diflucan IV Q24H ASCENCION Protocol Piperacillin Sod/Tazobactam Sod 4.5 gm in 100 mls @ 200 mls/hr 12/22/20 13:00 12/22/20 17:18 Zosyn/Ns 4.5gm/100ml IV 200 mls/hr Q6H ASCENCION Administration Protocol Multi-Ingred Cream/Lotion/Oil/Oint 1 applic 12/20/20 21:58 Mineral Oil/Petrolatum, White Ophth Oint 3.5 Gm OU Q4HR PRN Dry Eye(s) Senna/Docusate Sodium 1 tab 12/20/20 22:00 12/22/20 09:17 Sennosides/Docusate Sodium 8.6/50 Mg Tab FEEDTUBE Not Given BID ASCENCION Sodium Chloride 10 ml 12/20/20 22:00 12/22/20 14:50 Sodium Chloride 0.9% 10 Ml Flush Syringe IV 10 ml BID ASCENCION Administration Sodium Chloride 10 ml 12/20/20 16:42 Sodium Chloride 0.9% 10 Ml Flush Syringe IV PRN PRN LINE FLUSH Nutrition/Malnutrition Assess - Dietary Evaluation Nutrition/Malnutrition Findings: Nutrition Notes Start: 12/21/20 09:06 Freq: Status: Active Protocol: Document 12/21/20 09:06 PIETRO (Rec: 12/21/20 09:14 PIETRO [id number]) Nutrition Notes Need for Assessment generated from: MD Order Initial or Follow up Assessment Current Diagnosis Coronary Artery Disease, Hypertension,Small Bowel Obstruction,Hyperlipidemia Other Pertinent Diagnosis peritonitis Current Diet NPO Labs/Tests 12/20: Na 130 Pertinent Medications Propofol at 7.212 ml/hr (190 kcal) Height 6 ft Weight 120.202 kg [place] Body Weight (kg) 80.90 BMI 35.9 Weight Status Morbidly Obese Subjective/Other Information MD consult to eval nutritional intakes. 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 Pt now s/p exlap with 70 cm small bowel removal and lysis of adhesions. Pt has NGT to LIS. Burn Absent Trauma Absent Current % PO Negligible Minimum of two criteria No physical signs of malnutrition #2 Nutrition Diagnosis Increased nutrient needs ( specify in comment below) Comments: protein Etiology wound healing As Evidenced by Signs and Symptoms midline surgical wound to abd #1 Nutrition Diagnosis Inadequate oral intake Etiology ARF, SBO As Evidenced by Signs and Symptoms pt on vent and unable to consume PO, NGT to LIWS Is patient on ventilator? Yes Is Patient Ambulatory and/or Out of Bed No REE-([facility]-confined to bed) 2470.248 Kcal/Kg value to use for calculation 17 Approximate Energy Requirements Using 3 kcal/Kg Calculation Used for Recommendations Kcal/kg Additional Notes Protein: Up to 2.5g/IBW (up to 202g) Fluid: 1 ml/kcal or per MD Nutrition Intervention Change Diet Order: Start TF when medically able Nutrition Support: Vital AF at 70 ml/hr Flush 100 ml q4h Kcal 2,016 Protein (gm) 126 Fluid (mL) 1,362 Goal #1 Start TF when medically able Anticipated Discharge Needs: Unable to determine at this time Follow-Up By: 12/23/20 Additional Comments FU for plan of care
--- NOTE | 2020-12-22 15:15 | Progress Note ---
Assessment and Plan POD#2 s/p ex lap and small bowel resection for necrotic bowel secondary to incarcerated ventral hernia. Tachycardic, requiring vaso-pressor support, leukocytosis consistent with SIRS which is to be expected given pathology. Continue supportive care, since abdomen is open, will take to OR tomorrow for abdominal wash out and bowel examination. Will unlikely perform anastamosis tomorrow due to his unstable condition and vaso pressor support requirement. Telephone consent obtained from son Malvin. Subjective Date of service: 12/22/20 Narrative: over last 24 hours, pt has been febrile and continues on vasopressor support. Objective Vital Signs - 12hr 12/22/20 12/22/20 12/22/20 03:30 03:45 04:00 Temperature 102.1 F H Pulse Rate 121 H 121 H 121 H Pulse Rate [ 121 H From Monitor] Respiratory 24 24 24 Rate Blood Pressure 104/64 104/64 103/64 O2 Sat by Pulse 96 97 Oximetry 12/22/20 12/22/20 12/22/20 04:15 04:30 04:45 Temperature Pulse Rate 124 H 125 H 122 H Pulse Rate [ From Monitor] Respiratory 18 19 24 Rate Blood Pressure 103/64 109/67 109/67 O2 Sat by Pulse 95 94 95 Oximetry 12/22/20 12/22/20 12/22/20 05:00 05:15 05:18 Temperature Pulse Rate 123 H 123 H 122 H Pulse Rate [ From Monitor] Respiratory 24 12 Rate Blood Pressure 106/68 106/68 106/68 O2 Sat by Pulse 95 95 97 Oximetry 12/22/20 12/22/20 12/22/20 05:30 05:45 06:00 Temperature Pulse Rate 122 H 123 H 119 H Pulse Rate [ From Monitor] Respiratory 9 L 11 L 7 L Rate Blood Pressure 104/62 106/68 103/61 O2 Sat by Pulse 95 97 Oximetry 12/22/20 12/22/20 12/22/20 06:15 06:30 06:45 Temperature Pulse Rate 122 H 121 H 123 H Pulse Rate [ From Monitor] Respiratory 5 L 12 6 L Rate Blood Pressure 103/61 107/60 107/60 O2 Sat by Pulse 97 96 Oximetry 12/22/20 12/22/20 12/22/20 07:00 07:15 07:30 Temperature Pulse Rate 124 H 123 H 125 H Pulse Rate [ From Monitor] Respiratory 12 6 L 13 Rate Blood Pressure 107/62 107/62 113/65 O2 Sat by Pulse 94 96 93 Oximetry 12/22/20 12/22/20 12/22/20 07:45 08:00 08:15 Temperature 103.2 F H Pulse Rate 124 H 124 H 126 H Pulse Rate [ From Monitor] Respiratory 9 L 18 16 Rate Blood Pressure 113/65 110/61 110/61 O2 Sat by Pulse 96 94 95 Oximetry 12/22/20 12/22/20 12/22/20 08:30 08:45 08:55 Temperature Pulse Rate 121 H 122 H 124 H Pulse Rate [ From Monitor] Respiratory 21 24 Rate Blood Pressure 101/61 101/61 103/59 O2 Sat by Pulse 93 96 95 Oximetry 12/22/20 12/22/20 12/22/20 09:00 09:15 09:30 Temperature Pulse Rate 121 H 121 H 120 H Pulse Rate [ From Monitor] Respiratory 23 24 24 Rate Blood Pressure 109/58 109/58 103/59 O2 Sat by Pulse Oximetry 12/22/20 12/22/20 12/22/20 09:45 10:00 10:15 Temperature Pulse Rate 122 H 121 H 121 H Pulse Rate [ From Monitor] Respiratory 24 21 23 Rate Blood Pressure 109/58 108/57 108/57 O2 Sat by Pulse 95 95 93 Oximetry 12/22/20 12/22/20 12/22/20 10:30 10:45 11:00 Temperature Pulse Rate 121 H 121 H 122 H Pulse Rate [ From Monitor] Respiratory 22 20 24 Rate Blood Pressure 108/57 107/62 O2 Sat by Pulse 93 94 Oximetry 12/22/20 12/22/20 12/22/20 11:15 11:30 11:45 Temperature Pulse Rate 121 H 124 H 121 H Pulse Rate [ From Monitor] Respiratory 8 L 10 L 13 Rate Blood Pressure 107/62 99/62 99/62 O2 Sat by Pulse 91 91 92 Oximetry 12/22/20 12/22/20 12:00 13:40 Temperature Pulse Rate 121 H 117 H Pulse Rate [ From Monitor] Respiratory 16 Rate Blood Pressure 99/55 108/58 O2 Sat by Pulse 94 95 Oximetry - General physical appearance no distress, no pain, other (intubated) - Respiratory normal expansion, normal respiratory effort, other (on ventilator) - Abdomen soft, distended, other (wound vac in place with minimal drainage) - Labs 12/22/20 04:45 12/22/20 04:45 Diabetes panel 12/22/20 Range/Units 04:45 Sodium 146 H (137-145) mmol/L Potassium 4.2 (3.6-5.0) mmol/L Chloride 104.2 (98-107) mmol/L Carbon Dioxide 30 (22-30) mmol/L BUN 45 H (9-20) mg/dL Creatinine 1.3 (0.8-1.3) mg/dL Glucose 116 H (75-100) mg/dL Calcium 6.9 L (8.4-10.2) mg/dL Calcium panel 12/22/20 Range/Units 04:45 Calcium 6.9 L (8.4-10.2) mg/dL Pituitary panel 12/22/20 Range/Units 04:45 Sodium 146 H (137-145) mmol/L Potassium 4.2 (3.6-5.0) mmol/L Chloride 104.2 (98-107) mmol/L Carbon Dioxide 30 (22-30) mmol/L BUN 45 H (9-20) mg/dL Creatinine 1.3 (0.8-1.3) mg/dL Glucose 116 H (75-100) mg/dL Calcium 6.9 L (8.4-10.2) mg/dL Adrenal panel 12/22/20 Range/Units 04:45 Sodium 146 H (137-145) mmol/L Potassium 4.2 (3.6-5.0) mmol/L Chloride 104.2 (98-107) mmol/L Carbon Dioxide 30 (22-30) mmol/L BUN 45 H (9-20) mg/dL Creatinine 1.3 (0.8-1.3) mg/dL Glucose 116 H (75-100) mg/dL Calcium 6.9 L (8.4-10.2) mg/dL
--- NOTE | 2020-12-22 17:20 | Event Note ---
I spoke to the patients son today at [phone], Campos Fernandez, and updated on the current status of his father. He does state that Dr. Tena spoke to him this morning. I informed him that he is still intubated, reoccurrence of fevers, addition of ID to the case, current use of vasopressor and sedation. He stated he has no further questions.
[2020-12-23] MEDS: PIPERACIL/TAZOBACTA 4.5/NS 100 4.5 GM/100 ML VIAL IV SCH ×4 (01:50→22:52)
[2020-12-23] MEDS: fentaNYL DRIP Premix 2,000 MCG/100 ML BAG IV SCH ×5 (02:18→22:02)
[2020-12-23] MEDS: ACETAMINOPHEN 650 MG RECT SUPP PR PRN (03:21)
[2020-12-23 05:35] LABS: Hematocrit 39.6 % (35.5-45.6); Hemoglobin 12.8 gm/dl (11.8-15.2); Mean Corpuscular HGB Conc 32 % (32-34); Mean Corpuscular Volume 88 fl (84-94); Platelet Count 269 K/mm3 (140-440); Red Blood Count 4.49 M/mm3 (3.65-5.03); Red Cell Distribution Width 16.1 % (13.2-15.2)
--- NOTE | 2020-12-23 07:48 | XRay Report ---
CHEST - 1 VIEW 0606 hours INDICATION: follow up respiratory failure COMPARISON: Yesterday FINDINGS: Support devices: Stable support device positioning. Heart: Stable cardiomediastinal silhouette. Lungs/pleura: Bilateral lung opacities appear decreased by 25%. No pleural effusion or pneumothorax. Additional findings: None. IMPRESSION: Mild improvement in the bilateral lung opacities. Signer Name: Kyle Ramirez Jr, MD Signed: 12/23/2020 7:43 AM Workstation Name: [id number]
[2020-12-23] MEDS: FAMOTIDINE 20 MG/2 ML INJ IV SCH ×2 (09:10→22:03)
[2020-12-23] MEDS: NORepinephrine/NS 8 MG-250 ML 8 MG/250 ML INFUS..BTL IV SCH ×3 (10:17→22:47)
[2020-12-23] MEDS ORDERED: SODIUM CHLORIDE 0.9% 1000 ML 1,000 ML ONE (10:50)
--- NOTE | 2020-12-23 11:17 | Progress Note ---
Assessment and Plan POD#3 s/p ex lap and small bowel resection for necrotic bowel secondary to incarcerated ventral hernia. Tachycardia improved, requiring less vaso-pressor support, leukocytosis consistent with SIRS which is to be expected given pathology. Continue supportive care, since abdomen is open, will take to OR today for abdominal wash out and bowel examination. Will unlikely perform anastamosis tomorrow due to his unstable condition and vaso pressor support requirement. Telephone consent obtained from son Malvin. Subjective Date of service: 12/23/20 Narrative: no acute events overnight. Pt was febrile overnight. Was able to decrease pressors. Objective Vital Signs - 12hr 12/22/20 12/22/20 12/22/20 23:15 23:30 23:45 Temperature Pulse Rate 124 H 122 H 121 H Pulse Rate [ From Monitor] Respiratory 16 25 H 23 Rate Blood Pressure 99/65 99/57 99/57 O2 Sat by Pulse 96 96 97 Oximetry 12/22/20 12/22/20 12/23/20 23:54 23:58 00:00 Temperature 103.8 F H Pulse Rate 121 H 120 H Pulse Rate [ 120 H From Monitor] Respiratory 24 Rate Blood Pressure 99/57 103/58 O2 Sat by Pulse 97 97 Oximetry 12/23/20 12/23/20 12/23/20 00:15 00:30 00:45 Temperature Pulse Rate 120 H 120 H 125 H Pulse Rate [ From Monitor] Respiratory 23 24 24 Rate Blood Pressure 103/58 99/56 99/56 O2 Sat by Pulse 97 97 Oximetry 12/23/20 12/23/20 12/23/20 01:00 01:15 01:30 Temperature Pulse Rate 120 H 121 H 119 H Pulse Rate [ From Monitor] Respiratory 25 H 24 24 Rate Blood Pressure 99/59 99/59 97/61 O2 Sat by Pulse 96 97 Oximetry 12/23/20 12/23/20 12/23/20 01:45 02:00 02:15 Temperature Pulse Rate 120 H 120 H 120 H Pulse Rate [ From Monitor] Respiratory 22 24 25 H Rate Blood Pressure 97/61 87/50 87/50 O2 Sat by Pulse 97 96 96 Oximetry 12/23/20 12/23/20 12/23/20 02:30 02:45 03:00 Temperature Pulse Rate 121 H 118 H 120 H Pulse Rate [ From Monitor] Respiratory 24 24 15 Rate Blood Pressure 97/62 97/62 99/73 O2 Sat by Pulse 97 97 Oximetry 12/23/20 12/23/20 12/23/20 03:15 03:22 03:30 Temperature 103.1 F H Pulse Rate 125 H 121 H Pulse Rate [ From Monitor] Respiratory 23 23 Rate Blood Pressure 99/73 101/64 O2 Sat by Pulse 95 95 Oximetry 12/23/20 12/23/20 12/23/20 03:45 04:00 04:15 Temperature 102.7 F H Pulse Rate 120 H 119 H 113 H Pulse Rate [ 117 H From Monitor] Respiratory 24 24 24 Rate Blood Pressure 101/64 91/54 91/54 O2 Sat by Pulse 96 95 96 Oximetry 12/23/20 12/23/20 12/23/20 04:30 04:45 04:48 Temperature Pulse Rate 109 H 113 H 113 H Pulse Rate [ From Monitor] Respiratory 24 24 Rate Blood Pressure 101/64 101/64 101/64 O2 Sat by Pulse 96 96 97 Oximetry 12/23/20 12/23/20 12/23/20 05:00 05:01 05:15 Temperature 100.8 F H Pulse Rate 118 H 114 H Pulse Rate [ From Monitor] Respiratory 21 24 Rate Blood Pressure 105/61 101/65 O2 Sat by Pulse 94 94 Oximetry 12/23/20 12/23/20 12/23/20 05:30 05:45 06:00 Temperature 98.4 F Pulse Rate 113 H 113 H Pulse Rate [ From Monitor] Respiratory 24 24 Rate Blood Pressure 104/65 99/67 O2 Sat by Pulse 95 96 Oximetry 12/23/20 12/23/20 12/23/20 06:01 06:15 06:30 Temperature Pulse Rate 119 H 113 H 112 H Pulse Rate [ From Monitor] Respiratory 16 24 24 Rate Blood Pressure 89/74 107/68 113/64 O2 Sat by Pulse 97 96 97 Oximetry 12/23/20 12/23/20 12/23/20 06:45 07:00 07:15 Temperature 98.2 F Pulse Rate 111 H 111 H 110 H Pulse Rate [ From Monitor] Respiratory 24 24 24 Rate Blood Pressure 103/65 104/65 102/75 O2 Sat by Pulse 94 95 Oximetry 12/23/20 12/23/20 12/23/20 07:31 07:45 08:00 Temperature Pulse Rate 113 H 94 H 91 H Pulse Rate [ From Monitor] Respiratory 24 23 24 Rate Blood Pressure 115/79 98/66 102/60 O2 Sat by Pulse 74 L 96 95 Oximetry 12/23/20 12/23/20 12/23/20 08:15 08:29 08:30 Temperature Pulse Rate 89 90 90 Pulse Rate [ From Monitor] Respiratory 24 24 Rate Blood Pressure 99/65 97/64 97/64 O2 Sat by Pulse 94 96 94 Oximetry 12/23/20 12/23/20 12/23/20 08:45 09:00 09:16 Temperature Pulse Rate 89 90 89 Pulse Rate [ From Monitor] Respiratory 24 21 24 Rate Blood Pressure 98/58 100/65 100/65 O2 Sat by Pulse 95 97 97 Oximetry 12/23/20 12/23/20 12/23/20 09:30 09:45 10:00 Temperature Pulse Rate 89 89 90 Pulse Rate [ From Monitor] Respiratory 24 16 24 Rate Blood Pressure 95/64 100/65 97/64 O2 Sat by Pulse 92 95 Oximetry 12/23/20 10:15 Temperature Pulse Rate 91 H Pulse Rate [ From Monitor] Respiratory 24 Rate Blood Pressure 96/62 O2 Sat by Pulse 95 Oximetry - General physical appearance Narrative Exam: pt continues to be intubated on vent. appears comfortable. - Respiratory normal expansion, normal respiratory effort - Abdomen soft, distended, other (wound vac in place with SS drainage in canister. NGT with minimal output) - Labs 12/23/20 04:45 12/23/20 04:45 Diabetes panel 12/23/20 Range/Units 04:45 Sodium 154 H D (137-145) mmol/L Potassium 3.7 (3.6-5.0) mmol/L Chloride 110.9 H (98-107) mmol/L Carbon Dioxide 30 (22-30) mmol/L BUN 54 H (9-20) mg/dL Creatinine 1.8 H (0.8-1.3) mg/dL Glucose 115 H (75-100) mg/dL Calcium 7.0 L (8.4-10.2) mg/dL Calcium panel 12/23/20 Range/Units 04:45 Calcium 7.0 L (8.4-10.2) mg/dL Pituitary panel 12/23/20 Range/Units 04:45 Sodium 154 H D (137-145) mmol/L Potassium 3.7 (3.6-5.0) mmol/L Chloride 110.9 H (98-107) mmol/L Carbon Dioxide 30 (22-30) mmol/L BUN 54 H (9-20) mg/dL Creatinine 1.8 H (0.8-1.3) mg/dL Glucose 115 H (75-100) mg/dL Calcium 7.0 L (8.4-10.2) mg/dL Adrenal panel 12/23/20 Range/Units 04:45 Sodium 154 H D (137-145) mmol/L Potassium 3.7 (3.6-5.0) mmol/L Chloride 110.9 H (98-107) mmol/L Carbon Dioxide 30 (22-30) mmol/L BUN 54 H (9-20) mg/dL Creatinine 1.8 H (0.8-1.3) mg/dL Glucose 115 H (75-100) mg/dL Calcium 7.0 L (8.4-10.2) mg/dL
--- NOTE | 2020-12-23 11:43 | Progress Note ---
Assessment and Plan 60 y/o male with abdominal catastrophe, s/p ex-lap with open abdomen, ventilated for pain control and support. 12/23/20: to OR today. Likely still volume deplete as he is negative for the last 2 days and with his inflammatory response needs more volume. His elevated Na is likely secondary to insensible losses from the vent and fever. Surgery is ok with TPN, so spoke with nutrition about starting this. WIll give 2-3 more liter boluses of LR today. Vanc was a one time dose but can check a level given change in Cr. Will also send urine lytes. would hold on renal ultrasound as output is still very good. Per discussion IMS has already consulted ID and Renal so any changes to my plan will defer to them. 1. No repeat surgery today, tomorrow 2. Will add Vanc and Diflucan 3. Spoke with surgery, patient had no puss in his abdomen on first surgery 4. Will send blood and urine cultures. 5. Continue current level of sedation given open abdomen 6. Asked nursing to do a thorough check of the skin 7. Guarded prognosis CCT 31 minutes. Subjective Date of service: 12/23/20 Interval history: Remains febrile. STill on pressors but only 6. Had small bump in his cr last night. Otherwise no changes. Remains sedated secondary to open abdomen. Objective Vital Signs - 12hr 12/22/20 12/22/20 12/22/20 23:45 23:54 23:58 Temperature 103.8 F H Pulse Rate 121 H 121 H Pulse Rate [ From Monitor] Respiratory 23 Rate Blood Pressure 99/57 99/57 O2 Sat by Pulse 97 97 Oximetry 12/23/20 12/23/20 12/23/20 00:00 00:15 00:30 Temperature Pulse Rate 120 H 120 H 120 H Pulse Rate [ 120 H From Monitor] Respiratory 24 23 24 Rate Blood Pressure 103/58 103/58 99/56 O2 Sat by Pulse 97 97 Oximetry 12/23/20 12/23/20 12/23/20 00:45 01:00 01:15 Temperature Pulse Rate 125 H 120 H 121 H Pulse Rate [ From Monitor] Respiratory 24 25 H 24 Rate Blood Pressure 99/56 99/59 99/59 O2 Sat by Pulse 97 96 97 Oximetry 12/23/20 12/23/20 12/23/20 01:30 01:45 02:00 Temperature Pulse Rate 119 H 120 H 120 H Pulse Rate [ From Monitor] Respiratory 24 22 24 Rate Blood Pressure 97/61 97/61 87/50 O2 Sat by Pulse 97 96 Oximetry 12/23/20 12/23/20 12/23/20 02:15 02:30 02:45 Temperature Pulse Rate 120 H 121 H 118 H Pulse Rate [ From Monitor] Respiratory 25 H 24 24 Rate Blood Pressure 87/50 97/62 97/62 O2 Sat by Pulse 96 97 Oximetry 12/23/20 12/23/20 12/23/20 03:00 03:15 03:22 Temperature 103.1 F H Pulse Rate 120 H 125 H Pulse Rate [ From Monitor] Respiratory 15 23 Rate Blood Pressure 99/73 99/73 O2 Sat by Pulse 97 95 Oximetry 12/23/20 12/23/20 12/23/20 03:30 03:45 04:00 Temperature 102.7 F H Pulse Rate 121 H 120 H 119 H Pulse Rate [ 117 H From Monitor] Respiratory 23 24 24 Rate Blood Pressure 101/64 101/64 91/54 O2 Sat by Pulse 95 96 95 Oximetry 12/23/20 12/23/20 12/23/20 04:15 04:30 04:45 Temperature Pulse Rate 113 H 109 H 113 H Pulse Rate [ From Monitor] Respiratory 24 24 24 Rate Blood Pressure 91/54 101/64 101/64 O2 Sat by Pulse 96 96 96 Oximetry 12/23/20 12/23/20 12/23/20 04:48 05:00 05:01 Temperature 100.8 F H Pulse Rate 113 H 118 H Pulse Rate [ From Monitor] Respiratory 21 Rate Blood Pressure 101/64 105/61 O2 Sat by Pulse 97 94 Oximetry 12/23/20 12/23/20 12/23/20 05:15 05:30 05:45 Temperature Pulse Rate 114 H 113 H 113 H Pulse Rate [ From Monitor] Respiratory 24 24 24 Rate Blood Pressure 101/65 104/65 99/67 O2 Sat by Pulse 94 95 96 Oximetry 12/23/20 12/23/20 12/23/20 06:00 06:01 06:15 Temperature 98.4 F Pulse Rate 119 H 113 H Pulse Rate [ From Monitor] Respiratory 16 24 Rate Blood Pressure 89/74 107/68 O2 Sat by Pulse 97 96 Oximetry 12/23/20 12/23/20 12/23/20 06:30 06:45 07:00 Temperature 98.2 F Pulse Rate 112 H 111 H 111 H Pulse Rate [ From Monitor] Respiratory 24 24 24 Rate Blood Pressure 113/64 103/65 104/65 O2 Sat by Pulse 97 94 Oximetry 12/23/20 12/23/20 12/23/20 07:15 07:31 07:45 Temperature Pulse Rate 110 H 113 H 94 H Pulse Rate [ From Monitor] Respiratory 24 24 23 Rate Blood Pressure 102/75 115/79 98/66 O2 Sat by Pulse 95 74 L 96 Oximetry 12/23/20 12/23/20 12/23/20 08:00 08:15 08:29 Temperature Pulse Rate 91 H 89 90 Pulse Rate [ From Monitor] Respiratory 24 24 Rate Blood Pressure 102/60 99/65 97/64 O2 Sat by Pulse 95 94 96 Oximetry 12/23/20 12/23/20 12/23/20 08:30 08:45 09:00 Temperature Pulse Rate 90 89 90 Pulse Rate [ From Monitor] Respiratory 24 24 21 Rate Blood Pressure 97/64 98/58 100/65 O2 Sat by Pulse 94 95 97 Oximetry 12/23/20 12/23/20 12/23/20 09:16 09:30 09:45 Temperature Pulse Rate 89 89 89 Pulse Rate [ From Monitor] Respiratory 24 24 16 Rate Blood Pressure 100/65 95/64 100/65 O2 Sat by Pulse 97 92 Oximetry 12/23/20 12/23/20 12/23/20 10:00 10:15 10:30 Temperature Pulse Rate 90 91 H 90 Pulse Rate [ From Monitor] Respiratory 24 24 24 Rate Blood Pressure 97/64 96/62 102/65 O2 Sat by Pulse 95 95 Oximetry 12/23/20 12/23/20 12/23/20 10:45 11:00 11:15 Temperature Pulse Rate 91 H 92 H 92 H Pulse Rate [ From Monitor] Respiratory 24 25 H 24 Rate Blood Pressure 96/62 99/63 96/63 O2 Sat by Pulse 94 96 96 Oximetry 12/23/20 11:17 Temperature Pulse Rate 91 H Pulse Rate [ From Monitor] Respiratory Rate Blood Pressure 102/65 O2 Sat by Pulse 97 Oximetry CBC and BMP: 12/23/20 04:45 12/23/20 04:45 ABG, PT/INR, D-dimer: ABG ABG pH 7.385 (7.320-7.450) 12/23/20 04:43 POC ABG pCO2 47.9 mmHg (32.0-48.0) 12/23/20 04:43 ABG pCO2 51.0 mm Hg 12/20/20 21:30 POC ABG pO2 106.2 mmHg (83-108) 12/23/20 04:43 ABG pO2 104.4 mm Hg (80.0-90.0) H 12/20/20 21:30 POC ABG HCO3 28.0 12/23/20 04:43 ABG O2 Saturation 97.4 (0-100) 12/23/20 04:43 Abnormal lab findings: Abnormal Labs 12/20/20 12/20/20 12/20/20 13:58 13:58 13:58 WBC 41.1 H* RBC 5.59 H Hgb 16.2 H Hct 47.7 H RDW 15.5 H Plt Count 486 H Seg Neuts % (Manual) Lymphocytes % (Manual) Seg Neutrophils # Man Lymphocytes # (Manual) Monocytes # (Manual) APTT ABG pH POC ABG pO2 ABG pO2 ABG Sodium ABG Chloride ABG Glucose Carboxyhemoglobin Sodium 130 L Chloride 80.7 L BUN 37 H Creatinine Glucose 101 H POC Glucose Lactic Acid 3.20 H* Calcium Alkaline Phosphatase 142 H Total Protein 6.2 L Albumin 2.2 L Arterial Blood Glucose Arterial Blood Ionized Calcium 12/20/20 12/20/20 12/20/20 13:58 20:35 21:30 WBC RBC Hgb Hct RDW Plt Count Seg Neuts % (Manual) Lymphocytes % (Manual) Seg Neutrophils # Man Lymphocytes # (Manual) Monocytes # (Manual) APTT 49.4 H ABG pH 7.313 L POC ABG pO2 ABG pO2 104.4 H ABG Sodium ABG Chloride ABG Glucose Carboxyhemoglobin Sodium Chloride BUN Creatinine Glucose POC Glucose 122 H Lactic Acid Calcium Alkaline Phosphatase Total Protein Albumin Arterial Blood Glucose Arterial Blood Ionized Calcium 12/21/20 12/21/20 12/21/20 03:06 08:14 08:14 WBC 23.9 H RBC Hgb Hct RDW 15.7 H Plt Count Seg Neuts % (Manual) 91.0 H Lymphocytes % (Manual) 3.0 L Seg Neutrophils # Man 21.7 H Lymphocytes # (Manual) 0.7 L Monocytes # (Manual) 1.4 H APTT ABG pH 7.464 H POC ABG pO2 202.9 H ABG pO2 ABG Sodium 133.7 L ABG Chloride ABG Glucose 122 H Carboxyhemoglobin Sodium Chloride BUN 46 H Creatinine Glucose 103 H POC Glucose Lactic Acid Calcium 6.6 L D Alkaline Phosphatase Total Protein 5.4 L Albumin 2.3 L Arterial Blood Glucose 122 H Arterial Blood Ionized Calcium 3.5 L 12/21/20 12/22/20 12/22/20 17:18 04:45 04:45 WBC 22.9 H RBC Hgb Hct RDW 15.7 H Plt Count Seg Neuts % (Manual) Lymphocytes % (Manual) Seg Neutrophils # Man Lymphocytes # (Manual) Monocytes # (Manual) APTT ABG pH POC ABG pO2 ABG pO2 ABG Sodium ABG Chloride ABG Glucose Carboxyhemoglobin Sodium 146 H Chloride BUN 45 H Creatinine Glucose 116 H POC Glucose 108 H Lactic Acid Calcium 6.9 L Alkaline Phosphatase Total Protein Albumin Arterial Blood Glucose Arterial Blood Ionized Calcium 12/22/20 12/22/20 12/22/20 05:00 11:38 23:26 WBC RBC Hgb Hct RDW Plt Count Seg Neuts % (Manual) Lymphocytes % (Manual) Seg Neutrophils # Man Lymphocytes # (Manual) Monocytes # (Manual) APTT ABG pH 7.462 H POC ABG pO2 ABG pO2 ABG Sodium ABG Chloride ABG Glucose 118 H Carboxyhemoglobin Sodium Chloride BUN Creatinine Glucose POC Glucose 115 H 110 H Lactic Acid Calcium Alkaline Phosphatase Total Protein Albumin Arterial Blood Glucose 118 H Arterial Blood Ionized Calcium 3.8 L 12/23/20 12/23/20 12/23/20 04:43 04:45 04:45 WBC 22.2 H RBC Hgb Hct RDW 16.1 H Plt Count Seg Neuts % (Manual) Lymphocytes % (Manual) Seg Neutrophils # Man Lymphocytes # (Manual) Monocytes # (Manual) APTT ABG pH POC ABG pO2 ABG pO2 ABG Sodium 147.4 H ABG Chloride 112.0 H ABG Glucose 130 H Carboxyhemoglobin 0.4 L Sodium 154 H D Chloride 110.9 H BUN 54 H Creatinine 1.8 H Glucose 115 H POC Glucose Lactic Acid Calcium 7.0 L Alkaline Phosphatase Total Protein Albumin Arterial Blood Glucose 130 H Arterial Blood Ionized Calcium 3.8 L 12/23/20 05:17 WBC RBC Hgb Hct RDW Plt Count Seg Neuts % (Manual) Lymphocytes % (Manual) Seg Neutrophils # Man Lymphocytes # (Manual) Monocytes # (Manual) APTT ABG pH POC ABG pO2 ABG pO2 ABG Sodium ABG Chloride ABG Glucose Carboxyhemoglobin Sodium Chloride BUN Creatinine Glucose POC Glucose 116 H Lactic Acid Calcium Alkaline Phosphatase Total Protein Albumin Arterial Blood Glucose Arterial Blood Ionized Calcium
--- NOTE | 2020-12-23 12:03 | Consultation ---
History of Present Illness - Reason for Consult Consult date: 12/23/20 acute renal failure, hypernatremia Requesting physician: ALEN CALDERON - History of Present Illness 60 YO Male with Obesity, HTN, Narcotic Dependence/Addiction, CAD S/P Stent Placement on DAPT, HLD, OA, GERD presents to ED with the complaints of abdominal pain. He was found to have incarcerated ventral hernia. He underwent laparotomy and resection of necrotic bowel. He is currently on the ventilator. Renal consult is requested because of rising creatinine and hypernatremia. Patient had received fluid resuscitation . Patient is currently on the ventilator . Unable to get any history from patient. Information obtained from patient's current chart. Patient is currently on sedation and also on pressors. Past History Past Medical History: arthritis, GERD, hypertension, hyperlipidemia, other (See HPI) Past Surgical History: hernia repair, bowel surgery, Other (Stent placement) Social history: single, prescription drug abuse, other (Narcotic dependence/addiction). denies: smoking Family history: hypertension Medications and Allergies Allergies Allergy/AdvReac Type Severity Reaction Status Date / Time Iodinated Contrast Media AdvReac Unknown Verified 09/04/18 14:20 Home Medications Medication Instructions Recorded Confirmed Last Taken Type Aspirin 81 mg PO DAILY #30 tab.chew 09/08/18 09/12/20 03/31/20 09:28 Rx AtorvaSTATin [Lipitor] 80 mg PO QHS tablet 05/08/19 09/12/20 03/28/20 Rx Albuterol Sulfate [Proventil Hfa] 13.4 gm IH Q6H #1 hfa.aer.ad 04/01/20 09/12/20 Unknown Rx Clopidogrel [Plavix] 75 mg PO DAILY #30 tablet 04/01/20 09/12/20 Unknown Rx Gabapentin 300 mg PO BID@0700,1800 30 Days 04/01/20 09/12/20 Unknown Rx capsule Gabapentin 600 mg PO QHS 30 Days capsule 04/01/20 09/12/20 Unknown Rx Metoprolol [Lopressor TAB] 25 mg PO BID #60 tablet 04/01/20 09/12/20 Unknown Rx [place]-3/Dha/Epa/Fish Oil [[place] 3 1 each PO BID #60 capsule 04/01/20 09/12/20 Unknown Rx 500 Softgel] Tiotropium [place] [Spiriva] 2 puff IH DAILY #30 cap.w.dev 04/01/20 09/12/20 Unknown Rx Ubidecarenone [Co Q-10] 10 mg PO BID #60 tab 04/01/20 09/12/20 03/29/20 Rx cilostazoL [Pletal] 50 mg PO BID 30 Days tablet 04/01/20 09/12/20 Unknown Rx oxyCODONE /ACETAMINOPHEN [Percocet 2 tab PO Q6H PRN tablet 04/01/20 09/12/20 Unknown Rx 5/325 mg] Phosphorus #1 [K-Phos Neutral] 250 mg PO QID 2 Days #8 tablet 09/14/20 Unknown Rx Active Meds: Active Medications Acetaminophen (Acetaminophen 650 Mg Rect Supp) 650 mg [place] Q4H PRN PRN Reason: TEMP >/=100.4 Last Admin: 12/23/20 03:21 Dose: 650 mg Documented by: Famotidine (Famotidine 20 Mg/2 Ml Inj) 20 mg IV BID ASCENCION Last Admin: 12/23/20 09:10 Dose: 20 mg Documented by: Fentanyl (Fentanyl 100 Mcg/2 Ml Inj) 50 mcg IV Q10MIN PRN PRN Reason: ANALGESIA Last Admin: 12/21/20 03:46 Dose: 50 mcg Documented by: Hydrophilic Ointment (Lip Therapy Vaseline) 1 applic TP Q2HR PRN PRN Reason: Dry Lips Fentanyl Citrate (Fentanyl Drip Premix) 2,000 mcg in 100 mls @ 6.01 mls/hr IV TITR ASCENCION; Protocol Last Admin: 12/23/20 11:37 Dose: 4 mcg/kg/hr, 24.04 mls/hr Documented by: Propofol (Diprivan 10 Mg/Ml) 1,000 mg in 100 mls @ 3.606 mls/hr IV TITR ASCENCION; Protocol Last Admin: 12/23/20 09:09 Dose: 30 mcg/kg/min, 21.636 mls/hr Documented by: NORepinephrine/NS 8 MG-250 ML (Norepinephrine/Ns 8 Mg-250 Ml (Double Conc)) 8 mg in 250 mls @ 3.75 mls/hr IV TITRATE ASCENCION; Protocol Last Titration: 12/23/20 11:15 Dose: 6 mcg/min, 11.25 mls/hr Documented by: Fluconazole (Diflucan) 200 mls @ 100 mls/hr IV Q24H ASCENCION; Protocol Piperacillin Sod/Tazobactam Sod (Zosyn/Ns 4.5gm/100ml) 4.5 gm in 100 mls @ 200 mls/hr IV Q6H ASCENCION; Protocol Last Admin: 12/23/20 07:23 Dose: 200 mls/hr Documented by: Lactated Ringer's (Lactated Ringers) 1,000 mls @ 999 mls/hr IV BOLUS ONE Stop: 12/23/20 12:43 Lactated Ringer's (Lactated Ringers) 1,000 mls @ 999 mls/hr IV BOLUS ONE Stop: 12/23/20 12:43 Multi-Ingred Cream/Lotion/Oil/Oint (Mineral Oil/Petrolatum, White Ophth Oint 3.5 Gm) 1 applic OU Q4HR PRN PRN Reason: Dry Eye(s) Senna/Docusate Sodium (Sennosides/Docusate Sodium 8.6/50 Mg Tab) 1 tab FEEDTUBE BID [facility] Last Admin: 12/22/20 21:12 Dose: Not Given Documented by: Sodium Chloride (Sodium Chloride 0.9% 10 Ml Flush Syringe) 10 ml IV BID [facility] Last Admin: 12/22/20 21:12 Dose: 10 ml Documented by: Sodium Chloride (Sodium Chloride 0.9% 10 Ml Flush Syringe) 10 ml IV PRN PRN PRN Reason: LINE FLUSH Review of Systems ROS unobtainable: due to endotracheal tube Exam - Vital Signs Vital signs: Vital Signs Temp Pulse Resp BP Pulse Ox 98.6 F 136 H 18 111/72 97 12/20/20 13:17 12/20/20 13:17 12/20/20 13:17 12/20/20 13:17 12/20/20 13:17 - General Appearance General appearance: well-developed, well-nourished, appears stated age, intubated EENT: mucous membranes moist Neck: Present: neck supple Respiratory: Clear to Ascultation Heart: regular, normal heart rate Gastrointestinal: Present: other (Midline incision noted. Bowel sounds sluggish. Lawrence catheter in place.) Integumentary: other (No edema) Results - Lab Results 12/23/20 04:45 12/23/20 04:45 Most recent lab results ABG pH 7.385 (7.320-7.450) 12/23/20 04:43 ABG pCO2 51.0 mm Hg 12/20/20 21:30 ABG pO2 104.4 mm Hg (80.0-90.0) H 12/20/20 21:30 ABG HCO3 25.3 mmol/L (20.0-26.0) 12/20/20 21:30 ABG O2 Saturation 97.4 (0-100) 12/23/20 04:43 Calcium 7.0 mg/dL (8.4-10.2) L 12/23/20 04:45 Assessment and Plan Impression * Acute kidney injury. Most likely prerenal. However do need to consider progression to ATN as well * Incarcerated hernia with ischemic bowel. Status post bowel resection * Hypernatremia * Sepsis * Respiratory failure Recommendations * Acute kidney injury most likely prerenal. However do need to consider progr ession to ATN as well. His baseline creatinine is approximately 0.7. * Shall check a UA as well as a fractional excretion of sodium * Patient currently has indwelling Lawrence catheter in place and is also nonoliguric. * Patient needs free water. Add IV D5W * Pressors to maintain MAP greater than 65 * Avoid nephrotoxins * Monitor fluid status and electrolytes closely * thank you very much for the consultation. Shall follow along with you
--- NOTE | 2020-12-23 12:27 | Progress Note ---
Assessment and Plan Cultures: 12/20/2020 sputum culture: In process 12/20/2020 blood culture: No growth 12/20/2020 urine culture: Usual skin giorgio A/P: 60-year-old male with obesity, hypertension, tobacco abuse, coronary artery disease, admitted to the hospital on 12/20/2020 with: #Septic shock: Secondary to intra-abdominal source, peritonitis. Patient with necrotic bowel secondary to incarcerated ventral hernia. Status post exploratory laparotomy, extensive adhesiolysis, small bowel resection and peritoneal lavage along with ABThera VAC placement on 12/20/2020. #JONI: Renally dose antibiotics. #Morbid obesity Recs: -Given rising creatinine, Zosyn dose decreased -continue Fluconazole 400 mg daily, if creatinine rises further, decrease dose to 200 mg daily -Vancomycin not needed -Continue supportive care. Noted plans for retrip to [place] Lissette Rizzo MD, FACP [facility] O: [phone] F: [phone] Subjective Date of service: 12/23/20 Interval history: Febrile overnight. Remains on the vent, on pressors. Objective - Exam Narrative Exam: Physical Exam: Constitutional: sedated, intubated, on the vent Head, Ears, Nose: Normocephalic, atraumatic. External ears, nose normal Eyes: Conjunctivae/corneas clear. No icterus. No ptosis. Neck: intubated Oral: intubated Cardiovascular: S1, S2 + Respiratory: AE fair bilaterally and equal GI: ABThera VAC present, bowel sounds absent Musculoskeletal: No pedal edema, no cyanosis. Skin: No rash or abscess Hem/Lymphatic: No palpable cervical or supraclavicular nodes. No lymphangitis Psych: no agitation Neurological: sedated, intubated, on the vent, exam limited - Constitutional Vitals: Vital Signs Temp Pulse Resp BP Pulse Ox 98.8 F 91 H 24 102/65 97 12/23/20 11:40 12/23/20 11:17 12/23/20 11:15 12/23/20 11:17 12/23/20 11:17 Temperature -Last 24 Hours Temperature 98.8 F Temperature 98.2 F Temperature 98.4 F Temperature 100.8 F Temperature 102.7 F Temperature 103.1 F Temperature 103.8 F Temperature 103.6 F - Labs CBC & Chem 7: 12/23/20 04:45 12/23/20 04:45 Labs: Abnormal lab results 12/22/20 12/23/20 12/23/20 Range/Units 23:26 04:43 04:45 WBC 22.2 H (4.5-11.0) K/mm3 RDW 16.1 H (13.2-15.2) % ABG Sodium 147.4 H (136.0-145.0) mmol/L ABG Chloride 112.0 H (98-107) mmol/L ABG Glucose 130 H (65-95) mg/dL Carboxyhemoglobin 0.4 L (0.5-1.5) Sodium (137-145) mmol/L Chloride (98-107) mmol/L BUN (9-20) mg/dL Creatinine (0.8-1.3) mg/dL Glucose (75-100) mg/dL POC Glucose 110 H (70-105) mg/dL Calcium (8.4-10.2) mg/dL Arterial Blood Glucose 130 H (65-95) mg/dL Arterial Blood Ionized Calcium 3.8 L (4.6-5.3) mg/dL 12/23/20 12/23/20 Range/Units 04:45 05:17 WBC (4.5-11.0) K/mm3 RDW (13.2-15.2) % ABG Sodium (136.0-145.0) mmol/L ABG Chloride (98-107) mmol/L ABG Glucose (65-95) mg/dL Carboxyhemoglobin (0.5-1.5) Sodium 154 H D (137-145) mmol/L Chloride 110.9 H (98-107) mmol/L BUN 54 H (9-20) mg/dL Creatinine 1.8 H (0.8-1.3) mg/dL Glucose 115 H (75-100) mg/dL POC Glucose 116 H (70-105) mg/dL Calcium 7.0 L (8.4-10.2) mg/dL Arterial Blood Glucose (65-95) mg/dL Arterial Blood Ionized Calcium (4.6-5.3) mg/dL
[2020-12-23] MEDS ORDERED: LACTATED RINGERS 1,000 ML IV ONE ×2 (12:43→13:43)
[2020-12-23 13:09] LABS: Creatinine,Urine 78.1 mg/dL (0.1-20.0); Fractional Sodium Excretion 0.2
[2020-12-23 13:10] LABS: Bacteria,Urine 1+ /HPF (Negative); Bilirubin,Urine NEG (Negative); Blood,Urine SM (Negative); Color,Urine Yellow (Yellow); Mucus,Urine FEW /HPF; Protein,Urine <15 mg/dL mg/dL (Negative); Triple Phosphate Crystal,Urine 2+; Urobilinogen,Urine < 2.0 mg/dL (<2.0)
[2020-12-23] MEDS: SENNOSIDES/DOCUSATE SODIUM 8.6/50 MG TAB FEEDTUBE SCH (13:43)
--- NOTE | 2020-12-23 14:30 | Progress Note ---
<LILIYAMARGE SohaReagan - Last Filed: 12/23/20 15:41> Assessment and Plan Assessment and plan: This is a 60-year-old male with obesity, hypertension, nicotine dependence, PVD s/p stent placement on dual antiplatelet therapy, hyperlipidemia, OA, GERD, ventral hernia and small bowel obstruction who was admitted with small bowel obstruction and peritonitis Septic Shock, POA (presented with leukocytosis, tachycardia, tachypnea,febrile and evidence of peritonitis) COVID-19 PUI Small bowel obstruction with peritonitis Ventral hernia Leukocytosis Hypernatremia Acute Kidney Injury Obesity Hypertension Nicotine dependence CAD s/p stent placement Hyperlipidemia Osteoarthritis GERD -CCM, surgery, infectious disease, nephrology consulted, appreciate recommendations -12/20 CT abdomen/pelvis showed high-grade small bowel obstruction related to severe complex ventral abdominal wall hernias, progressed in appearance from prior exam from 09/12/2020 without evidence of pneumonitis or pneumoperitoneum, patchy bibasilar airspace disease concern for atypical infectious process/pneumonitis -12/20 s/p ex lap, extensive lysis of adhesions, small bowel resection (removal of 70 cm necrotic small bowel segment), peritoneal lavage and ABThera abdominal wound VAC placement -IV abx: Zosyn, fluconazole -NGT to LIWS -NPO for now, will start TPN -Vasopressor support with levophed -MIVF per nephro -COVID-19 PCR negative -On mechanical ventilation, wean as tolerated, VAP bundle -Sedated with propofol and analgesia with fentanyl drip -12/23 Fractional excretion of sodium calculated at 0.16 indicating prerenal state -Trend CBC, BMP, Mg, Phos GI/DVT prophylaxis: PPI, SCDs to bilateral lower extremities while in bed, avoid chemical anticoagulation to cleared by surgery Disposition: ICU The high probability of a clinically significant, sudden or life threatening deterioration of the [multi] system(s) required my full and direct attention, intervention and personal management. The aggregate critical care time was [35] minutes. This time is in addition to time spent performing reported procedures but includes the following: [x] Data Review and interpretation [x] Patient assessment and monitoring of vital signs [x] Documentation [x] Medication orders and management History Interval history: This is a 60-year-old male with obesity, hypertension, nicotine dependence, PVD s/p stent placement on dual antiplatelet therapy, hyperlipidemia, OA, GERD, ventral hernia with SBO who presents to the emergency department on 12/20 with severe, diffuse, worsened with movement, slightly relieved with rest abdominal pain rated at 10/10 with decreased oral intake, nausea and multiple episodes of vomiting. Patient underwent a CT of his abdomen/pelvis and was found to have evidence of small bowel obstruction as well as clinical findings consistent with acute peritonitis. Patient was admitted to the hospital service with acute peritonitis and incarcerated ventral hernia with consults to [facility] and surgery. 12/21: Patient is status post ex lap, extensive lysis of adhesions, small bowel resection, peritoneal lavage and ABThera abdominal wound VAC placement by Dr. Tena and Dr. Brumfield on 12/20 with removal of a 70 cm segment of necrotic small bowel. Patient was intubated and sedated on propofol 4 at the time of my examination on Assist-control, rate of 24, PEEP of 6, tidal volume of 550 and FiO2 35%. Patient needed to be deeply sedated and there was a became hypotensive. Patient was started on patient for support with Levophed and received bolus of IVF. 12/22: Patient was febrile to 103 and vancomycin and Diflucan were added by [facility] and infectious disease was consulted and they increased Zosyn and stop vancomycin. Patient was given additional 1 L bolus today for CVP goal of 10-12. At the time of examination patient was on Levophed, propofol and fentanyl CMV tidal volume 500, rate of 24, PEEP of 6 and FiO2 65%. Plan for OR tomorrow 12/23: Patient Cr/BUN noted to be increased and nephrology was consulted. ID decreased the zosyn dose d/r renal function. Urine studies ordered. [place] placed today. LR boluses per [facility], TPN to be started. Fractional excretion of sodium calculated at 0.16 indicating prerenal state Hospitalist Physical - Constitutional Vitals: Temp Pulse Resp BP Pulse Ox 98.8 F 91 H 24 102/65 97 12/23/20 11:40 12/23/20 11:17 12/23/20 11:15 12/23/20 11:17 12/23/20 11:17 General appearance: Present: mild distress, obese, other (sedated) - EENT Eyes: Present: PERRL - Neck Neck: Present: normal ROM - Respiratory Respiratory effort: normal Respiratory: bilateral: diminished - Cardiovascular Rhythm: regular Heart Sounds: Present: S1 & S2. Absent: systolic murmur, diastolic murmur - Extremities Extremities: no ischemia, pulses intact, pulses symmetrical, No edema, normal temperature, normal color Peripheral Pulses: within normal limits - Abdominal General gastrointestinal: soft, non-tender, non-distended, normal bowel sounds - Integumentary Integumentary: Present: warm (MLA with woundvac in place), dry - Psychiatric Psychiatric: other (sedated) - Neurologic Neurologic: other (sedated) - Allied Health Allied health notes reviewed: nursing, RT, social work HEART Score - HEART Score Troponin: Troponin T < 0.010 ng/mL (0.00-0.029) 12/20/20 13:58 Results - Labs CBC & Chem 7: 12/23/20 04:45 12/23/20 12:15 Labs: Laboratory Last Values WBC 22.2 K/mm3 (4.5-11.0) H 12/23/20 04:45 RBC 4.49 M/mm3 (3.65-5.03) 12/23/20 04:45 Hgb 12.8 gm/dl (11.8-15.2) 12/23/20 04:45 Hct 39.6 % (35.5-45.6) 12/23/20 04:45 MCV 88 fl (84-94) 12/23/20 04:45 MCH 29 pg (28-32) 12/23/20 04:45 MCHC 32 % (32-34) 12/23/20 04:45 RDW 16.1 % (13.2-15.2) H 12/23/20 04:45 Plt Count 269 K/mm3 (140-440) 12/23/20 04:45 Add Manual Diff Complete 12/21/20 08:14 Total Counted 100 12/21/20 08:14 Seg Neutrophils % Event Staff Member 12/21/20 08:14 Seg Neuts % (Manual) 91.0 % (40.0-70.0) H 12/21/20 08:14 Lymphocytes % (Manual) 3.0 % (13.4-35.0) L 12/21/20 08:14 Monocytes % (Manual) 6.0 % (0.0-7.3) 12/21/20 08:14 Nucleated RBC % Not Reportable 12/21/20 08:14 Seg Neutrophils # Man 21.7 K/mm3 (1.8-7.7) H 12/21/20 08:14 Band Neutrophils # 0.0 K/mm3 12/21/20 08:14 Lymphocytes # (Manual) 0.7 K/mm3 (1.2-5.4) L 12/21/20 08:14 Abs React Lymphs (Man) 0.0 K/mm3 12/21/20 08:14 Monocytes # (Manual) 1.4 K/mm3 (0.0-0.8) H 12/21/20 08:14 Eosinophils # (Manual) 0.0 K/mm3 (0.0-0.4) 12/21/20 08:14 Basophils # (Manual) 0.0 K/mm3 (0.0-0.1) 12/21/20 08:14 Metamyelocytes # 0.0 K/mm3 12/21/20 08:14 Myelocytes # 0.0 K/mm3 12/21/20 08:14 Promyelocytes # 0.0 K/mm3 12/21/20 08:14 Blast Cells # 0.0 K/mm3 12/21/20 08:14 WBC Morphology Not Reportable 12/21/20 08:14 Hypersegmented Neuts Not Reportable 12/21/20 08:14 Hyposegmented Neuts Not Reportable 12/21/20 08:14 Hypogranular Neuts Not Reportable 12/21/20 08:14 Smudge Cells Not Reportable 12/21/20 08:14 Toxic Granulation Not Reportable 12/21/20 08:14 Toxic Vacuolation Not Reportable 12/21/20 08:14 Dohle Bodies Not Reportable 12/21/20 08:14 Pelger-Huet Anomaly Not Reportable 12/21/20 08:14 Mirian Rods Not Reportable 12/21/20 08:14 Platelet Estimate Consistent w auto 12/21/20 08:14 Clumped Platelets Not Reportable 12/21/20 08:14 Plt Clumps, EDTA Not Reportable 12/21/20 08:14 Large Platelets Not Reportable 12/21/20 08:14 Giant Platelets Not Reportable 12/21/20 08:14 Platelet Satelliting Not Reportable 12/21/20 08:14 Plt Morphology Comment Not Reportable 12/21/20 08:14 RBC Morphology Normal 12/21/20 08:14 Dimorphic RBCs Not Reportable 12/21/20 08:14 Polychromasia Not Reportable 12/21/20 08:14 Hypochromasia Not Reportable 12/21/20 08:14 Poikilocytosis Not Reportable 12/21/20 08:14 Anisocytosis Not Reportable 12/21/20 08:14 Microcytosis Not Reportable 12/21/20 08:14 Macrocytosis Not Reportable 12/21/20 08:14 Spherocytes Not Reportable 12/21/20 08:14 Pappenheimer Bodies Not Reportable 12/21/20 08:14 Sickle Cells Not Reportable 12/21/20 08:14 Target Cells Not Reportable 12/21/20 08:14 Tear Drop Cells Not Reportable 12/21/20 08:14 Ovalocytes Not Reportable 12/21/20 08:14 Helmet Cells Not Reportable 12/21/20 08:14 Mart-Blasdell Bodies Not Reportable 12/21/20 08:14 [place] Rings Not Reportable 12/21/20 08:14 [place] Cells Not Reportable 12/21/20 08:14 Bite Cells Not Reportable 12/21/20 08:14 Crenated Cell Not Reportable 12/21/20 08:14 Elliptocytes Not Reportable 12/21/20 08:14 Acanthocytes (Spur) Not Reportable 12/21/20 08:14 Rouleaux Not Reportable 12/21/20 08:14 Hemoglobin C Crystals Not Reportable 12/21/20 08:14 Schistocytes Not Reportable 12/21/20 08:14 Malaria parasites Not Reportable 12/21/20 08:14 [place]ylon Bodies Not Reportable 12/21/20 08:14 Hem Pathologist Commnt No 12/21/20 08:14 APTT 49.4 Sec. (24.2-36.6) H 12/20/20 13:58 ABG pH 7.385 (7.320-7.450) 12/23/20 04:43 POC ABG pCO2 47.9 mmHg (32.0-48.0) 12/23/20 04:43 ABG pCO2 51.0 mm Hg 12/20/20 21:30 POC ABG pO2 106.2 mmHg (83-108) 12/23/20 04:43 ABG pO2 104.4 mm Hg (80.0-90.0) H 12/20/20 21:30 POC ABG HCO3 28.0 12/23/20 04:43 ABG HCO3 25.3 mmol/L (20.0-26.0) 12/20/20 21:30 ABG O2 Saturation 97.4 (0-100) 12/23/20 04:43 ABG O2 Content 20.3 (0.0-44) 12/20/20 21:30 POC ABG Base Excess 2.3 12/23/20 04:43 ABG Base Excess -1.7 mmol/L (-2.0-3.0) 12/20/20 21:30 ABG Hemoglobin 13.1 (12.0-17.5) 12/23/20 04:43 ABG Oxyhemoglobin 96.7 (94-98) 12/23/20 04:43 ABG Carboxyhemoglobin 1.3 % (0.0-5.0) 12/20/20 21:30 ABG Methemoglobin 0.3 (0.0-1.5) 12/23/20 04:43 ABG Sodium 147.4 mmol/L (136.0-145.0) H 12/23/20 04:43 ABG Potassium 3.5 mmol/L (3.40-4.50) 12/23/20 04:43 ABG Chloride 112.0 mmol/L (98-107) H 12/23/20 04:43 ABG Glucose 130 mg/dL (65-95) H 12/23/20 04:43 Oxyhemoglobin 95.2 % (95.0-99.0) 12/20/20 21:30 Carboxyhemoglobin 0.4 (0.5-1.5) L 12/23/20 04:43 FiO2 100 % 12/20/20 21:30 FiO2 % 55.0 12/23/20 04:43 Sodium 154 mmol/L (137-145) H 12/23/20 12:15 Potassium 3.7 mmol/L (3.6-5.0) 12/23/20 04:45 Chloride 110.9 mmol/L (98-107) H 12/23/20 04:45 Carbon Dioxide 30 mmol/L (22-30) 12/23/20 04:45 Anion Gap 17 mmol/L 12/23/20 04:45 BUN 54 mg/dL (9-20) H 12/23/20 04:45 Creatinine 1.5 mg/dL (0.8-1.3) H 12/23/20 12:15 Estimated GFR 39 ml/min 12/23/20 04:45 BUN/Creatinine Ratio 30 % 12/23/20 04:45 Glucose 115 mg/dL (75-100) H 12/23/20 04:45 POC Glucose 130 mg/dL (70-105) H 12/23/20 11:22 Lactic Acid 1.70 mmol/L (0.7-2.0) 12/20/20 16:20 Calcium 7.0 mg/dL (8.4-10.2) L 12/23/20 04:45 Total Bilirubin 0.80 mg/dL (0.1-1.2) 12/21/20 08:14 AST 40 units/L (5-40) 12/21/20 08:14 ALT 21 units/L (7-56) 12/21/20 08:14 Alkaline Phosphatase 114 units/L (35-129) 12/21/20 08:14 Troponin T < 0.010 ng/mL (0.00-0.029) 12/20/20 13:58 Total Protein 5.4 g/dL (6.3-8.2) L 12/21/20 08:14 Albumin 2.3 g/dL (3.9-5) L 12/21/20 08:14 Albumin/Globulin Ratio 0.7 % 12/21/20 08:14 Arterial Blood Glucose 130 mg/dL (65-95) H 12/23/20 04:43 Arterial Blood Ionized Calcium 3.8 mg/dL (4.6-5.3) L 12/23/20 04:43 Urine Color Yellow (Yellow) 12/23/20 12:15 Urine Turbidity Cloudy (Clear) 12/23/20 12:15 Urine pH 5.0 (5.0-7.0) 12/23/20 12:15 Ur Specific [place] 1.019 (1.003-1.030) 12/23/20 12:15 Urine Protein <15 mg/dl mg/dL (Negative) 12/23/20 12:15 Urine Glucose (UA) Neg mg/dL (Negative) 12/23/20 12:15 Urine Ketones Neg mg/dL (Negative) 12/23/20 12:15 Urine Blood Sm (Negative) 12/23/20 12:15 Urine Nitrite Neg (Negative) 12/23/20 12:15 Urine Bilirubin Neg (Negative) 12/23/20 12:15 Urine Urobilinogen < 2.0 mg/dL (<2.0) 12/23/20 12:15 Ur Leukocyte Esterase Neg (Negative) 12/23/20 12:15 Urine WBC (Auto) 5.0 /HPF (0.0-6.0) 12/23/20 12:15 Urine RBC (Auto) 2.0 /HPF (0.0-6.0) 12/23/20 12:15 U Epithel Cells (Auto) < 1.0 /HPF (0-13.0) 12/20/20 Unknown Urine Bacteria (Auto) 1+ /HPF (Negative) 12/23/20 12:15 Triple Phos Crystals 2+ 12/23/20 12:15 Hyaline Casts 19 /LPF 12/20/20 Unknown Urine Mucus Few /HPF 12/23/20 12:15 Urine Creatinine 78.1 mg/dL (0.1-20.0) H 12/23/20 12:15 Urine Sodium 13 mmol/L 12/23/20 12:15 Fraction Sodium Excret 0.2 12/23/20 12:15 Coronavirus (PCR) Negative (Negative) 12/21/20 Unknown Blood Type A NEGATIVE 12/20/20 15:06 Antibody Screen Negative 12/20/20 15:06 Microbiology: Microbiology 12/20/20 13:58 Peripheral/Venous Blood Culture - Preliminary NO GROWTH AFTER 72 HOURS 12/20/20 13:58 Peripheral/Venous Blood Culture - Preliminary NO GROWTH AFTER 72 HOURS 12/20/20 04:50 Tracheal Aspirate Sputum Culture - Preliminary 12/20/20 Unknown Urine,Clean Catch Urine Culture - Final [place]/IV: Voiding Method Indwelling Catheter Active Medications - Current Medications Current Medications: Generic Name Dose Route Start Last Admin Trade Name Freq PRN Reason Stop Dose Admin Acetaminophen 650 mg 12/21/20 11:51 12/23/20 03:21 Acetaminophen 650 Mg Rect Supp SC 650 mg Q4H PRN Administration TEMP >/=100.4 Famotidine 20 mg 06/01/21 22:00 12/23/20 09:10 Famotidine 20 Mg/2 Ml Inj IV 20 mg BID ASCENCION Administration Fentanyl 50 mcg 12/20/20 21:58 12/21/20 03:46 Fentanyl 100 Mcg/2 Ml Inj IV 50 mcg Q10MIN PRN Administration ANALGESIA Hydrophilic Ointment 1 applic 12/20/20 21:58 Lip Therapy Vaseline TP Q2HR PRN Dry Lips Fentanyl Citrate 2,000 mcg in 100 mls @ 6.01 mls/hr 12/20/20 22:00 12/23/20 11:37 Fentanyl Drip Premix IV 4 mcg/kg/hr TITR ASCENCION 24.04 mls/hr Administration Protocol 1 MCG/KG/HR Propofol 1,000 mg in 100 mls @ 3.606 mls/hr 12/20/20 22:00 12/23/20 13:55 Diprivan 10 Mg/Ml IV 30 mcg/kg/min TITR ASCENCION 21.636 mls/hr Administration Protocol 5 MCG/KG/MIN NORepinephrine/NS 8 MG-250 ML 8 mg in 250 mls @ 3.75 mls/hr 12/21/20 09:00 12/23/20 13:42 Norepinephrine/Ns 8 Mg-250 Ml (Double Conc) IV 8 mcg/min TITRATE ASCENCION 15 mls/hr Titration Protocol 2 MCG/MIN Fluconazole 200 mls @ 100 mls/hr 12/23/20 13:00 Diflucan IV Q24H ASCENCION Protocol Lactated Ringer's 1,000 mls @ 999 mls/hr 12/23/20 13:43 12/23/20 13:42 Lactated Ringers IV 12/23/20 14:43 999 mls/hr BOLUS ONE Administration Dextrose 1,000 mls @ 100 mls/hr 12/23/20 13:00 D5w IV DIRECT ASCENCION Piperacillin Sod/Tazobactam Sod 4.5 gm in 100 mls @ 200 mls/hr 12/23/20 15:00 Zosyn/Ns 4.5gm/100ml IV Q8H [facility] Protocol Multi-Ingred Cream/Lotion/Oil/Oint 1 applic 12/20/20 21:58 Mineral Oil/Petrolatum, White Ophth Oint 3.5 Gm OU Q4HR PRN Dry Eye(s) Senna/Docusate Sodium 1 tab 12/20/20 22:00 12/23/20 13:43 Sennosides/Docusate Sodium 8.6/50 Mg Tab FEEDTUBE Not Given BID ASCENCION Sodium Chloride 10 ml 12/20/20 22:00 12/22/20 21:12 Sodium Chloride 0.9% 10 Ml Flush Syringe IV 10 ml BID ASCENCION Administration Sodium Chloride 10 ml 12/20/20 16:42 Sodium Chloride 0.9% 10 Ml Flush Syringe IV PRN PRN LINE FLUSH Nutrition/Malnutrition Assess - Dietary Evaluation Nutrition/Malnutrition Findings: Nutrition Notes Start: 12/21/20 09:06 Freq: Status: Active Protocol: Document 12/23/20 09:23 CW (Rec: 12/23/20 09:33 CW [id number]) Nutrition Notes Initial or Follow up Reassessment Current Diagnosis Coronary Artery Disease, Hypertension,Small Bowel Obstruction,Hyperlipidemia Other Pertinent Diagnosis peritonitis Current Diet NPO Labs/Tests Na 154 BUN 54 Cr 1.8 Pertinent Medications propofol at 21.6 ml/hr norepinephrine Height 6 ft Weight 120.202 kg [place] Body Weight (kg) 80.90 BMI 35.9 Weight Status Morbidly Obese Subjective/Other Information F/U for POC. Pt remains on mechanical vent. Verbal order for MD to initiate TPN. Pt has a central line available for CPN. No mg adn phos available at this time. Will order labs and start TPN in am Percent of energy/protein needs met: 0%/0% Burn Absent Trauma Absent Current % PO Negligible Minimum of two criteria No physical signs of malnutrition #2 Nutrition Diagnosis Increased nutrient needs ( specify in comment below) Diagnosis Progress(for reassessment Continues documentation) #1 Nutrition Diagnosis Inadequate oral intake Diagnosis Progress(for reassessment Continues documentation) Is patient on ventilator? Yes Is Patient Ambulatory and/or Out of Bed No REE-([facility]-confined to bed) 2470.248 Kcal/Kg value to use for calculation 17 Approximate Energy Requirements Using 2042 kcal/Kg Calculation Used for Recommendations Kcal/kg Additional Notes Protein: Up to 2.5g/IBW (up to 202g) Fluid: 1 ml/kcal or per MD Nutrition Intervention Change Diet Order: Start TF when medically able Nutrition Support: Vital AF at 70 ml/hr Flush 100 ml q4h Kcal 2,016 Protein (gm) 126 Fluid (mL) 1,362 Goal #1 start CPN Anticipated Discharge Needs: Unable to determine at this time Follow-Up By: 12/24/20 Additional Comments F/U for labs in am (BMP, mg, phos) <ALEN CALDERON O - Last Filed: 12/23/20 21:12> History Interval history: This is a 60-year-old male with obesity, hypertension, nicotine dependence, PVD s/p stent placement on dual antiplatelet therapy, hyperlipidemia, OA, GERD, ventral hernia and small bowel obstruction who was admitted with small bowel obstruction and peritonitis. he is s/p ex lap, extensive lysis of adhesions, small bowel resection (removal of 70 cm necrotic small bowel segment), peritoneal lavage and ABThera abdominal wound VAC placement. I have seen and evaluated the patient and discussed with Nurse Practitioner. I agree with the findings and the plan of care as documented in the Nurse Practitioner's note. Hospitalist Physical - Constitutional Vitals: Temp Pulse Resp BP Pulse Ox 99.1 F 113 H 24 79/51 100 12/23/20 19:52 12/23/20 19:25 12/23/20 19:00 12/23/20 19:25 12/23/20 19:25 HEART Score - HEART Score Troponin: Troponin T < 0.010 ng/mL (0.00-0.029) 12/20/20 13:58 Results - Labs CBC & Chem 7: 12/23/20 04:45 12/23/20 12:15 Labs: Laboratory Last Values WBC 22.2 K/mm3 (4.5-11.0) H 12/23/20 04:45 RBC 4.49 M/mm3 (3.65-5.03) 12/23/20 04:45 Hgb 12.8 gm/dl (11.8-15.2) 12/23/20 04:45 Hct 39.6 % (35.5-45.6) 12/23/20 04:45 MCV 88 fl (84-94) 12/23/20 04:45 MCH 29 pg (28-32) 12/23/20 04:45 MCHC 32 % (32-34) 12/23/20 04:45 RDW 16.1 % (13.2-15.2) H 12/23/20 04:45 Plt Count 269 K/mm3 (140-440) 12/23/20 04:45 Add Manual Diff Complete 12/21/20 08:14 Total Counted 100 12/21/20 08:14 Seg Neutrophils % Event Staff Member 12/21/20 08:14 Seg Neuts % (Manual) 91.0 % (40.0-70.0) H 12/21/20 08:14 Lymphocytes % (Manual) 3.0 % (13.4-35.0) L 12/21/20 08:14 Monocytes % (Manual) 6.0 % (0.0-7.3) 12/21/20 08:14 Nucleated RBC % Not Reportable 12/21/20 08:14 Seg Neutrophils # Man 21.7 K/mm3 (1.8-7.7) H 12/21/20 08:14 Band Neutrophils # 0.0 K/mm3 12/21/20 08:14 Lymphocytes # (Manual) 0.7 K/mm3 (1.2-5.4) L 12/21/20 08:14 Abs React Lymphs (Man) 0.0 K/mm3 12/21/20 08:14 Monocytes # (Manual) 1.4 K/mm3 (0.0-0.8) H 12/21/20 08:14 Eosinophils # (Manual) 0.0 K/mm3 (0.0-0.4) 12/21/20 08:14 Basophils # (Manual) 0.0 K/mm3 (0.0-0.1) 12/21/20 08:14 Metamyelocytes # 0.0 K/mm3 12/21/20 08:14 Myelocytes # 0.0 K/mm3 12/21/20 08:14 Promyelocytes # 0.0 K/mm3 12/21/20 08:14 Blast Cells # 0.0 K/mm3 12/21/20 08:14 WBC Morphology Not Reportable 12/21/20 08:14 Hypersegmented Neuts Not Reportable 12/21/20 08:14 Hyposegmented Neuts Not Reportable 12/21/20 08:14 Hypogranular Neuts Not Reportable 12/21/20 08:14 Smudge Cells Not Reportable 12/21/20 08:14 Toxic Granulation Not Reportable 12/21/20 08:14 Toxic Vacuolation Not Reportable 12/21/20 08:14 Dohle Bodies Not Reportable 12/21/20 08:14 Pelger-Huet Anomaly Not Reportable 12/21/20 08:14 Mirian Rods Not Reportable 12/21/20 08:14 Platelet Estimate Consistent w auto 12/21/20 08:14 Clumped Platelets Not Reportable 12/21/20 08:14 Plt Clumps, EDTA Not Reportable 12/21/20 08:14 Large Platelets Not Reportable 12/21/20 08:14 Giant Platelets Not Reportable 12/21/20 08:14 Platelet Satelliting Not Reportable 12/21/20 08:14 Plt Morphology Comment Not Reportable 12/21/20 08:14 RBC Morphology Normal 12/21/20 08:14 Dimorphic RBCs Not Reportable 12/21/20 08:14 Polychromasia Not Reportable 12/21/20 08:14 Hypochromasia Not Reportable 12/21/20 08:14 Poikilocytosis Not Reportable 12/21/20 08:14 Anisocytosis Not Reportable 12/21/20 08:14 Microcytosis Not Reportable 12/21/20 08:14 Macrocytosis Not Reportable 12/21/20 08:14 Spherocytes Not Reportable 12/21/20 08:14 Pappenheimer Bodies Not Reportable 12/21/20 08:14 Sickle Cells Not Reportable 12/21/20 08:14 Target Cells Not Reportable 12/21/20 08:14 Tear Drop Cells Not Reportable 12/21/20 08:14 Ovalocytes Not Reportable 12/21/20 08:14 Helmet Cells Not Reportable 12/21/20 08:14 Mart-Blasdell Bodies Not Reportable 12/21/20 08:14 [place] Rings Not Reportable 12/21/20 08:14 [place] Cells Not Reportable 12/21/20 08:14 Bite Cells Not Reportable 12/21/20 08:14 Crenated Cell Not Reportable 12/21/20 08:14 Elliptocytes Not Reportable 12/21/20 08:14 Acanthocytes (Spur) Not Reportable 12/21/20 08:14 Rouleaux Not Reportable 12/21/20 08:14 Hemoglobin C Crystals Not Reportable 12/21/20 08:14 Schistocytes Not Reportable 12/21/20 08:14 Malaria parasites Not Reportable 12/21/20 08:14 Dylon Bodies Not Reportable 12/21/20 08:14 Hem Pathologist Commnt No 12/21/20 08:14 APTT 49.4 Sec. (24.2-36.6) H 12/20/20 13:58 ABG pH 7.385 (7.320-7.450) 12/23/20 04:43 POC ABG pCO2 47.9 mmHg (32.0-48.0) 12/23/20 04:43 ABG pCO2 51.0 mm Hg 12/20/20 21:30 POC ABG pO2 106.2 mmHg (83-108) 12/23/20 04:43 ABG pO2 104.4 mm Hg (80.0-90.0) H 12/20/20 21:30 POC ABG HCO3 28.0 12/23/20 04:43 ABG HCO3 25.3 mmol/L (20.0-26.0) 12/20/20 21:30 ABG O2 Saturation 97.4 (0-100) 12/23/20 04:43 ABG O2 Content 20.3 (0.0-44) 12/20/20 21:30 POC ABG Base Excess 2.3 12/23/20 04:43 ABG Base Excess -1.7 mmol/L (-2.0-3.0) 12/20/20 21:30 ABG Hemoglobin 13.1 (12.0-17.5) 12/23/20 04:43 ABG Oxyhemoglobin 96.7 (94-98) 12/23/20 04:43 ABG Carboxyhemoglobin 1.3 % (0.0-5.0) 12/20/20 21:30 ABG Methemoglobin 0.3 (0.0-1.5) 12/23/20 04:43 ABG Sodium 147.4 mmol/L (136.0-145.0) H 12/23/20 04:43 ABG Potassium 3.5 mmol/L (3.40-4.50) 12/23/20 04:43 ABG Chloride 112.0 mmol/L (98-107) H 12/23/20 04:43 ABG Glucose 130 mg/dL (65-95) H 12/23/20 04:43 Oxyhemoglobin 95.2 % (95.0-99.0) 12/20/20 21:30 Carboxyhemoglobin 0.4 (0.5-1.5) L 12/23/20 04:43 FiO2 100 % 12/20/20 21:30 FiO2 % 55.0 12/23/20 04:43 Sodium 154 mmol/L (137-145) H 12/23/20 12:15 Potassium 3.7 mmol/L (3.6-5.0) 12/23/20 04:45 Chloride 110.9 mmol/L (98-107) H 12/23/20 04:45 Carbon Dioxide 30 mmol/L (22-30) 12/23/20 04:45 Anion Gap 17 mmol/L 12/23/20 04:45 BUN 54 mg/dL (9-20) H 12/23/20 04:45 Creatinine 1.5 mg/dL (0.8-1.3) H 12/23/20 12:15 Estimated GFR 39 ml/min 12/23/20 04:45 BUN/Creatinine Ratio 30 % 12/23/20 04:45 Glucose 115 mg/dL (75-100) H 12/23/20 04:45 POC Glucose 130 mg/dL (70-105) H 12/23/20 11:22 Lactic Acid 1.70 mmol/L (0.7-2.0) 12/20/20 16:20 Calcium 7.0 mg/dL (8.4-10.2) L 12/23/20 04:45 Total Bilirubin 0.80 mg/dL (0.1-1.2) 12/21/20 08:14 AST 40 units/L (5-40) 12/21/20 08:14 ALT 21 units/L (7-56) 12/21/20 08:14 Alkaline Phosphatase 114 units/L (35-129) 12/21/20 08:14 Troponin T < 0.010 ng/mL (0.00-0.029) 12/20/20 13:58 Total Protein 5.4 g/dL (6.3-8.2) L 12/21/20 08:14 Albumin 2.3 g/dL (3.9-5) L 12/21/20 08:14 Albumin/Globulin Ratio 0.7 % 12/21/20 08:14 Arterial Blood Glucose 130 mg/dL (65-95) H 12/23/20 04:43 Arterial Blood Ionized Calcium 3.8 mg/dL (4.6-5.3) L 12/23/20 04:43 Urine Color Yellow (Yellow) 12/23/20 12:15 Urine Turbidity Cloudy (Clear) 12/23/20 12:15 Urine pH 5.0 (5.0-7.0) 12/23/20 12:15 Ur Specific [place] 1.019 (1.003-1.030) 12/23/20 12:15 Urine Protein <15 mg/dl mg/dL (Negative) 12/23/20 12:15 Urine Glucose (UA) Neg mg/dL (Negative) 12/23/20 12:15 Urine Ketones Neg mg/dL (Negative) 12/23/20 12:15 Urine Blood Sm (Negative) 12/23/20 12:15 Urine Nitrite Neg (Negative) 12/23/20 12:15 Urine Bilirubin Neg (Negative) 12/23/20 12:15 Urine Urobilinogen < 2.0 mg/dL (<2.0) 12/23/20 12:15 Ur Leukocyte Esterase Neg (Negative) 12/23/20 12:15 Urine WBC (Auto) 5.0 /HPF (0.0-6.0) 12/23/20 12:15 Urine RBC (Auto) 2.0 /HPF (0.0-6.0) 12/23/20 12:15 U Epithel Cells (Auto) < 1.0 /HPF (0-13.0) 12/20/20 Unknown Urine Bacteria (Auto) 1+ /HPF (Negative) 12/23/20 12:15 Triple Phos Crystals 2+ 12/23/20 12:15 Hyaline Casts 19 /LPF 12/20/20 Unknown Urine Mucus Few /HPF 12/23/20 12:15 Urine Eosinophils None seen (None Seen) 12/23/20 12:15 Urine Creatinine 78.1 mg/dL (0.1-20.0) H 12/23/20 12:15 Urine Sodium 13 mmol/L 12/23/20 12:15 Fraction Sodium Excret 0.2 12/23/20 12:15 Random Vancomycin 7.9 ug/mL (0-40.0) 12/23/20 12:15 Coronavirus (PCR) Negative (Negative) 12/21/20 Unknown Blood Type A NEGATIVE 12/20/20 15:06 Antibody Screen Negative 12/20/20 15:06 Microbiology: Microbiology 12/20/20 13:58 Peripheral/Venous Blood Culture - Preliminary NO GROWTH AFTER 72 HOURS 12/20/20 13:58 Peripheral/Venous Blood Culture - Preliminary NO GROWTH AFTER 72 HOURS 12/20/20 04:50 Tracheal Aspirate Sputum Culture - Preliminary 12/20/20 Unknown Urine,Clean Catch Urine Culture - Final [place]/IV: Voiding Method Indwelling Catheter Active Medications - Current Medications Current Medications: Generic Name Dose Route Start Last Admin Trade Name Freq PRN Reason Stop Dose Admin Acetaminophen 650 mg 12/21/20 11:51 12/23/20 03:21 Acetaminophen 650 Mg Rect Supp SC 650 mg Q4H PRN Administration TEMP >/=100.4 Famotidine 20 mg 12/20/20 22:00 12/23/20 09:10 Famotidine 20 Mg/2 Ml Inj IV 20 mg BID ASCENCION Administration Fentanyl 50 mcg 12/20/20 21:58 12/21/20 03:46 Fentanyl 100 Mcg/2 Ml Inj IV 50 mcg Q10MIN PRN Administration ANALGESIA Hydrophilic Ointment 1 applic 12/20/20 21:58 Lip Therapy Vaseline TP Q2HR PRN Dry Lips Fentanyl Citrate 2,000 mcg in 100 mls @ 6.01 mls/hr 12/20/20 22:00 12/23/20 18:25 Fentanyl Drip Premix IV 3 mcg/kg/hr TITR ASCENCION 18.03 mls/hr Administration Protocol 1 MCG/KG/HR Propofol 1,000 mg in 100 mls @ 3.606 mls/hr 12/20/20 22:00 12/23/20 13:55 Diprivan 10 Mg/Ml IV 30 mcg/kg/min TITR ASCENCION 21.636 mls/hr Administration Protocol 5 MCG/KG/MIN NORepinephrine/NS 8 MG-250 ML 8 mg in 250 mls @ 3.75 mls/hr 12/21/20 09:00 12/23/20 21:10 Norepinephrine/Ns 8 Mg-250 Ml (Double Conc) IV 20 mcg/min TITRATE ASCENCION 37.5 mls/hr Titration Protocol 2 MCG/MIN Fluconazole 200 mls @ 100 mls/hr 12/23/20 13:00 12/23/20 18:26 Diflucan IV 100 mls/hr Q24H ASCENCION Administration Protocol Dextrose 1,000 mls @ 100 mls/hr 12/23/20 13:00 D5w IV DIRECT ASCENCION Piperacillin Sod/Tazobactam Sod 4.5 gm in 100 mls @ 200 mls/hr 12/23/20 15:00 12/23/20 18:26 Zosyn/Ns 4.5gm/100ml IV Not Given Q8H ASCENCION Protocol Multi-Ingred Cream/Lotion/Oil/Oint 1 applic 12/20/20 21:58 Mineral Oil/Petrolatum, White Ophth Oint 3.5 Gm OU Q4HR PRN Dry Eye(s) Senna/Docusate Sodium 1 tab 12/20/20 22:00 12/23/20 13:43 Sennosides/Docusate Sodium 8.6/50 Mg Tab FEEDTUBE Not Given BID ASCENCION Sodium Chloride 10 ml 12/20/20 22:00 12/22/20 21:12 Sodium Chloride 0.9% 10 Ml Flush Syringe IV 10 ml BID ASCENCION Administration Sodium Chloride 10 ml 12/20/20 16:42 Sodium Chloride 0.9% 10 Ml Flush Syringe IV PRN PRN LINE FLUSH Nutrition/Malnutrition Assess - Dietary Evaluation Nutrition/Malnutrition Findings: Nutrition Notes Start: 12/21/20 09: 06 Freq: Status: Active Protocol: Document 12/23/20 09:23 CW (Rec: 12/23/20 09:33 CW [id number]) Nutrition Notes Initial or Follow up Reassessment Current Diagnosis Coronary Artery Disease, Hypertension,Small Bowel Obstruction,Hyperlipidemia Other Pertinent Diagnosis peritonitis Current Diet NPO Labs/Tests Na 154 BUN 54 Cr 1.8 Pertinent Medications propofol at 21.6 ml/hr norepinephrine Height 6 ft Weight 120.202 kg [place] Body Weight (kg) 80.90 BMI 35.9 Weight Status Morbidly Obese Subjective/Other Information F/U for POC. Pt remains on mechanical vent. Verbal order for MD to initiate TPN. Pt has a central line available for CPN. No mg adn phos available at this time. Will order labs and start TPN in am Percent of energy/protein needs met: 0%/0% Burn Absent Trauma Absent Current % PO Negligible Minimum of two criteria No physical signs of malnutrition #2 Nutrition Diagnosis Increased nutrient needs ( specify in comment below) Diagnosis Progress(for reassessment Continues documentation) #1 Nutrition Diagnosis Inadequate oral intake Diagnosis Progress(for reassessment Continues documentation) Is patient on ventilator? Yes Is Patient Ambulatory and/or Out of Bed No REE-([facility]-confined to bed) 2470.248 Kcal/Kg value to use for calculation 17 Approximate Energy Requirements Using 2043 kcal/Kg Calculation Used for Recommendations Kcal/kg Additional Notes Protein: Up to 2.5g/IBW (up to 202g) Fluid: 1 ml/kcal or per MD Nutrition Intervention Change Diet Order: Start TF when medically able Nutrition Support: Vital AF at 70 ml/hr Flush 100 ml q4h Kcal 2,016 Protein (gm) 126 Fluid (mL) 1,362 Goal #1 start CPN Anticipated Discharge Needs: Unable to determine at this time Follow-Up By: 12/24/20 Additional Comments F/U for labs in am (BMP, mg, phos)
[2020-12-23] MEDS ORDERED: ROCURONIUM 50 MG/5 ML INJ IV ONE (14:52)
[2020-12-23] MEDS ORDERED: SODIUM CHLORIDE 0.9% IRR 1,500 ML BOTTLE IR ONE (15:30)
[2020-12-23] MEDS ORDERED: ALTEPLASE 2 MG INJ IV ONE (16:10)
--- NOTE | 2020-12-23 16:48 | Operative Report ---
Operative Report Operative Report: Date: December 23, 2020 Surgeon: Freda Tena MD Cad Administrator surgeon: Julia Brumfield DO Procedure:1. Abdominal exploration,2. Small bowel resection,3. Peritoneal lavage,4. ABThera wound VAC placement Anesthesia: General Preop diagnosis: Gangrenous small bowel from incarcerated ventral hernia, subsequent open abdomen status post previous exploratory laparotomy Postop diagnosis: Same as preop Indication: Patient is a 60-year-old male who presented to the emergency room 3 days ago with incarcerated ventral hernia with small bowel causing gangrenous necrosis. Patient had a segmental small bowel resection and was left in discontinuity with ABThera VAC. Patient has been septic, remaining on the joy tilator in ICU with supportive care. Patient is here today for second look, abdominal exploration to evaluate remaining small bowel, and abdominal washout preparation for future procedure for hopefully reanastomosis and abdominal closure. Details of procedure: Patient was transferred from ICU bed to the OR table in supine position. General anesthesia was induced maintaining his previous place ET tube. The ABThera wound VAC was removed and patient abdomen was prepped and draped in sterile fashion. The remaining sponge and VAC apparatus was removed from abdominal cavity. Patient continues to have dilated segments of small bowel that were easily . There was noted to be some residual murky fluid. There were no signs of perforation or bowel injury. There was noted to be a 4 to 5 cm segment of dusky small bowel on the distal portion of small intestine. This was resected with about 10cm of less dusky bowel proximal to it, with the mesentery taken with an Enseal device. The patient was noted to have proximal small bowel with chronic dilatation. Patient had a large umbilical hernia sac that was excised with the overlying skin. The peritoneal cavity was copiously irrigated with normal saline followed by aspiration. An ABThera abdominal wound VAC was then placed over the abdominal contents and secured to suction. Patient was then transferred back to his ICU bed and taken to recovery stable condition. All counts were correct. Specimen: Segment of small bowel, and umbilical hernia with skin Complications: None immediate EBL: Minimal
[2020-12-23] MEDS ORDERED: LACTATED RINGERS 1,000 ML ONE (17:10)
--- NOTE | 2020-12-23 17:22 | Post Anesthesia Evaluation ---
- Post Anesthesia Evaluation Patient Participated: No Airway Patent: Yes Stable Respiratory Function: Yes Nausea/Vomiting: No Temp > 96.8F: Yes Pain Manageable: Yes Adequeate Hydration: Yes Anesthesia Complications: No Block Receding Appropriately: Not Applicable Patient on Ventilator: Yes
[2020-12-23] MEDS: FLUCONAZOLE 400 MG 200 ML IV SCH (18:26)
[2020-12-23] MEDS: DEXTROSE 5% IN WATER 1,000 ML IV SCH (19:30)
[2020-12-24] MEDS: ACETAMINOPHEN 650 MG RECT SUPP PR PRN (00:01)
[2020-12-24] MEDS: fentaNYL DRIP Premix 2,000 MCG/100 ML BAG IV SCH ×6 (03:23→20:28)
[2020-12-24] MEDS: NORepinephrine/NS 8 MG-250 ML 8 MG/250 ML INFUS..BTL IV SCH ×3 (03:25→19:34)
[2020-12-24 05:13] LABS: Mean Corpuscular HGB Conc 32 % (32-34); Mean Corpuscular Volume 88 fl (84-94); Platelet Count 252 K/mm3 (140-440); Red Blood Count 4.66 M/mm3 (3.65-5.03); Red Cell Distribution Width 16.5 % (13.2-15.2)
[2020-12-24 05:39] LABS: Albumin 1.8 g/dL (3.9-5); Calcium 6.8 mg/dL (8.4-10.2)
[2020-12-24] MEDS: PIPERACIL/TAZOBACTA 4.5/NS 100 4.5 GM/100 ML VIAL IV SCH ×2 (06:20→14:31)
[2020-12-24] MEDS: DEXTROSE 5% IN WATER 1,000 ML IV SCH ×2 (06:20→14:29)
[2020-12-24] MEDS: SENNOSIDES/DOCUSATE SODIUM 8.6/50 MG TAB FEEDTUBE SCH ×2 (07:59→11:43)
[2020-12-24] MEDS ORDERED: DEXTROSE 50% IN WATER (25GM) 50 ML SYRINGE IV PRN (10:49)
--- NOTE | 2020-12-24 10:55 | Progress Note ---
<KINGSMARGE SohaReagan - Last Filed: 12/24/20 14:08> Assessment and Plan Assessment and plan: This is a 60-year-old male with obesity, hypertension, nicotine dependence, PVD s/p stent placement on dual antiplatelet therapy, hyperlipidemia, OA, GERD, ventral hernia and small bowel obstruction who was admitted with small bowel obstruction and peritonitis Septic Shock, POA (presented with leukocytosis, tachycardia, tachypnea,febrile and evidence of peritonitis) COVID-19 PUI Small bowel obstruction with peritonitis Ventral hernia Leukocytosis Hypernatremia Hypercholremia Acute Kidney Injury Obesity Hypertension Nicotine dependence CAD s/p stent placement Hyperlipidemia Osteoarthritis GERD -CCM, surgery, infectious disease, nephrology consulted, appreciate recommendations -12/20 CT abdomen/pelvis showed high-grade small bowel obstruction related to severe complex ventral abdominal wall hernias, progressed in appearance from prior exam from 09/12/2020 without evidence of pneumonitis or pneumoperitoneum, patchy bibasilar airspace disease concern for atypical infectious process/pneumonitis -12/20 s/p ex lap, extensive lysis of adhesions, small bowel resection (removal of 70 cm necrotic small bowel segment), peritoneal lavage and ABThera abdominal wound VAC placement -12/23 s/p abdominal exploration, small bowel resection, peritoneal lavage, ABThera wound VAC placement -IV abx per ID: Zosyn, fluconazole -NGT to LIWS -NPO for now, TPN -SSI, Accucheck q6 -Vasopressor support with levophed and vasopressin -MIVF per nephro -12/23 Fractional excretion of sodium calculated at 0.16 indicating prerenal state -COVID-19 PCR negative -On mechanical ventilation, wean as tolerated, VAP bundle -Sedated with propofol and analgesia with fentanyl drip -Trend CBC, BMP, Mg, Phos GI/DVT prophylaxis: PPI, SCDs to bilateral lower extremities while in bed, avoid chemical anticoagulation to cleared by surgery Disposition: ICU The high probability of a clinically significant, sudden or life threatening deterioration of the [multi] system(s) required my full and direct attention, intervention and personal management. The aggregate critical care time was [35] minutes. This time is in addition to time spent performing reported procedures but includes the following: [x] Data Review and interpretation [x] Patient assessment and monitoring of vital signs [x] Documentation [x] Medication orders and management History Interval history: This is a 60-year-old male with obesity, hypertension, nicotine dependence, PVD s/p stent placement on dual antiplatelet therapy, hyperlipidemia, OA, GERD, ventral hernia with SBO who presents to the emergency department on 12/20 with severe, diffuse, worsened with movement, slightly relieved with rest abdominal pain rated at 10/10 with decreased oral intake, nausea and multiple episodes of vomiting. Patient underwent a CT of his abdomen/pelvis and was found to have evidence of small bowel obstruction as well as clinical findings consistent with acute peritonitis. Patient was admitted to the hospital service with acute peritonitis and incarcerated ventral hernia with consults to [facility] and surgery. 12/21: Patient is status post ex lap, extensive lysis of adhesions, small bowel resection, peritoneal lavage and ABThera abdominal wound VAC placement by Dr. Tena and Dr. Brumfield on 12/20 with removal of a 70 cm segment of necrotic small bowel. Patient was intubated and sedated on propofol 4 at the time of my examination on Assist-control, rate of 24, PEEP of 6, tidal volume of 550 and FiO2 35%. Patient needed to be deeply sedated and there was a became hypotensive. Patient was started on patient for support with Levophed and received bolus of IVF. 12/22: Patient was febrile to 103 and vancomycin and Diflucan were added by [facility] and infectious disease was consulted and they increased Zosyn and stop vancomycin. Patient was given additional 1 L bolus today for CVP goal of 10-12. At the time of examination patient was on Levophed, propofol and fentanyl CMV tidal volume 500, rate of 24, PEEP of 6 and FiO2 65%. Plan for OR tomorrow 12/23: Patient Cr/BUN noted to be increased and nephrology was consulted. ID decreased the zosyn dose d/r renal function. Urine studies ordered. [place] placed today. LR boluses per [facility], TPN to be started. Fractional excretion of sodium calculated at 0.16 indicating prerenal state 12/24: Patient is status post abdominal exploration, small bowel resection of 4 to 5 cm segment of dusky small bowel, peritoneal lavage and ABThera wound VAC placement on 12/23 with surgery, leukocytosis and renal function is improving, worsening hypernatremia and hyperchloremia. Patient will be started on TPN today. We will place on SSI/Accu-Cheks every every 6 hours. Patient noted to be nearly maxed on Levophed and vasopressin was ordered. Remains sedated and on MV Hospitalist Physical - Constitutional Vitals: Temp Pulse Resp BP Pulse Ox 100.4 F H 108 H 24 119/69 98 12/24/20 08:00 12/24/20 09:15 12/24/20 09:15 12/24/20 09:15 12/24/20 09:15 General appearance: Present: mild distress, obese, other (sedated on mv) - EENT Eyes: Present: PERRL ENT: poor dentition - Neck Neck: Absent: masses or JVD, cervical LAD - Respiratory Respiratory effort: normal Respiratory: bilateral: diminished - Cardiovascular Rhythm: regular Heart Sounds: Present: S1 & S2. Absent: systolic murmur, diastolic murmur - Extremities Extremities: no ischemia, pulses intact, pulses symmetrical, No edema, normal temperature, normal color Peripheral Pulses: within normal limits - Abdominal General gastrointestinal: soft, non-tender, non-distended, normal bowel sounds - Integumentary Integumentary: Present: warm, dry (MLA with wound vac in place) - Psychiatric Psychiatric: other (sedated) - Neurologic Neurologic: other (sedated) - Allied Health Allied health notes reviewed: nursing, RT, social work HEART Score - HEART Score Troponin: Troponin T < 0.010 ng/mL (0.00-0.029) 12/20/20 13:58 Results - Labs CBC & Chem 7: 12/24/20 04:30 12/24/20 04:30 Labs: Laboratory Last Values WBC 18.3 K/mm3 (4.5-11.0) H 12/24/20 04:30 RBC 4.66 M/mm3 (3.65-5.03) 12/24/20 04:30 Hgb 13.0 gm/dl (11.8-15.2) 12/24/20 04:30 Hct 41.0 % (35.5-45.6) 12/24/20 04:30 MCV 88 fl (84-94) 12/24/20 04:30 MCH 28 pg (28-32) 12/24/20 04:30 MCHC 32 % (32-34) 12/24/20 04:30 RDW 16.5 % (13.2-15.2) H 12/24/20 04:30 Plt Count 252 K/mm3 (140-440) 12/24/20 04:30 Add Manual Diff Complete 12/21/20 08:14 Total Counted 100 12/21/20 08:14 Seg Neutrophils % Veneer Layer 12/21/20 08:14 Seg Neuts % (Manual) 91.0 % (40.0-70.0) H 12/21/20 08:14 Lymphocytes % (Manual) 3.0 % (13.4-35.0) L 12/21/20 08:14 Monocytes % (Manual) 6.0 % (0.0-7.3) 12/21/20 08:14 Nucleated RBC % Not Reportable 12/21/20 08:14 Seg Neutrophils # Man 21.7 K/mm3 (1.8-7.7) H 12/21/20 08:14 Band Neutrophils # 0.0 K/mm3 12/21/20 08:14 Lymphocytes # (Manual) 0.7 K/mm3 (1.2-5.4) L 12/21/20 08:14 Abs React Lymphs (Man) 0.0 K/mm3 12/21/20 08:14 Monocytes # (Manual) 1.4 K/mm3 (0.0-0.8) H 12/21/20 08:14 Eosinophils # (Manual) 0.0 K/mm3 (0.0-0.4) 12/21/20 08:14 Basophils # (Manual) 0.0 K/mm3 (0.0-0.1) 12/21/20 08:14 Metamyelocytes # 0.0 K/mm3 12/21/20 08:14 Myelocytes # 0.0 K/mm3 12/21/20 08:14 Promyelocytes # 0.0 K/mm3 12/21/20 08:14 Blast Cells # 0.0 K/mm3 12/21/20 08:14 WBC Morphology Not Reportable 12/21/20 08:14 Hypersegmented Neuts Not Reportable 12/21/20 08:14 Hyposegmented Neuts Not Reportable 12/21/20 08:14 Hypogranular Neuts Not Reportable 12/21/20 08:14 Smudge Cells Not Reportable 12/21/20 08:14 Toxic Granulation Not Reportable 12/21/20 08:14 Toxic Vacuolation Not Reportable 12/21/20 08:14 Dohle Bodies Not Reportable 12/21/20 08:14 Pelger-Huet Anomaly Not Reportable 12/21/20 08:14 Mirian Rods Not Reportable 12/21/20 08:14 Platelet Estimate Consistent w auto 12/21/20 08:14 Clumped Platelets Not Reportable 12/21/20 08:14 Plt Clumps, EDTA Not Reportable 12/21/20 08:14 Large Platelets Not Reportable 12/21/20 08:14 Giant Platelets Not Reportable 12/21/20 08:14 Platelet Satelliting Not Reportable 12/21/20 08:14 Plt Morphology Comment Not Reportable 12/21/20 08:14 RBC Morphology Normal 12/21/20 08:14 Dimorphic RBCs Not Reportable 12/21/20 08:14 Polychromasia Not Reportable 12/21/20 08:14 Hypochromasia Not Reportable 12/21/20 08:14 Poikilocytosis Not Reportable 12/21/20 08:14 Anisocytosis Not Reportable 12/21/20 08:14 Microcytosis Not Reportable 12/21/20 08:14 Macrocytosis Not Reportable 12/21/20 08:14 Spherocytes Not Reportable 12/21/20 08:14 Pappenheimer Bodies Not Reportable 12/21/20 08:14 Sickle Cells Not Reportable 12/21/20 08:14 Target Cells Not Reportable 12/21/20 08:14 Tear Drop Cells Not Reportable 12/21/20 08:14 Ovalocytes Not Reportable 12/21/20 08:14 Helmet Cells Not Reportable 12/21/20 08:14 Mart-Sigel Bodies Not Reportable 12/21/20 08:14 Stryker Rings Not Reportable 12/21/20 08:14 [place] Cells Not Reportable 12/21/20 08:14 Bite Cells Not Reportable 12/21/20 08:14 Crenated Cell Not Reportable 12/21/20 08:14 Elliptocytes Not Reportable 12/21/20 08:14 Acanthocytes (Spur) Not Reportable 12/21/20 08:14 Rouleaux Not Reportable 12/21/20 08:14 Hemoglobin C Crystals Not Reportable 12/21/20 08:14 Schistocytes Not Reportable 12/21/20 08:14 Malaria parasites Not Reportable 12/21/20 08:14 [place] Bodies Not Reportable 12/21/20 08:14 Hem Pathologist Commnt No 12/21/20 08:14 APTT 49.4 Sec. (24.2-36.6) H 12/20/20 13:58 ABG pH 7.404 (7.320-7.450) 12/24/20 04:19 POC ABG pCO2 40.7 mmHg (32.0-48.0) 12/24/20 04:19 ABG pCO2 51.0 mm Hg 12/20/20 21:30 POC ABG pO2 97.1 mmHg (83-108) 12/24/20 04:19 ABG pO2 104.4 mm Hg (80.0-90.0) H 12/20/20 21:30 POC ABG HCO3 24.9 12/24/20 04:19 ABG HCO3 25.3 mmol/L (20.0-26.0) 12/20/20 21:30 ABG O2 Saturation 96.9 (0-100) 12/24/20 04:19 ABG O2 Content 20.3 (0.0-44) 12/20/20 21:30 POC ABG Base Excess 0.1 12/24/20 04:19 ABG Base Excess -1.7 mmol/L (-2.0-3.0) 12/20/20 21:30 ABG Hemoglobin 13.0 (12.0-17.5) 12/24/20 04:19 ABG Oxyhemoglobin 95.8 (94-98) 12/24/20 04:19 ABG Carboxyhemoglobin 1.3 % (0.0-5.0) 12/20/20 21:30 ABG Methemoglobin 0.3 (0.0-1.5) 12/24/20 04:19 ABG Sodium 149.7 mmol/L (136.0-145.0) H 12/24/20 04:19 ABG Potassium 3.8 mmol/L (3.40-4.50) 12/24/20 04:19 ABG Chloride 116.0 mmol/L (98-107) H 12/24/20 04:19 ABG Glucose 180 mg/dL (65-95) H 12/24/20 04:19 Oxyhemoglobin 95.2 % (95.0-99.0) 12/20/20 21:30 Carboxyhemoglobin 0.8 (0.5-1.5) 12/24/20 04:19 FiO2 100 % 12/20/20 21:30 FiO2 % 50.0 12/24/20 04:19 Sodium 155 mmol/L (137-145) H 12/24/20 04:30 Potassium 4.0 mmol/L (3.6-5.0) 12/24/20 04:30 Chloride 116.1 mmol/L (98-107) H 12/24/20 04:30 Carbon Dioxide 29 mmol/L (22-30) 12/24/20 04:30 Anion Gap 14 mmol/L 12/24/20 04:30 BUN 52 mg/dL (9-20) H 12/24/20 04:30 Creatinine 1.5 mg/dL (0.8-1.3) H 12/24/20 04:30 Estimated GFR 48 ml/min 12/24/20 04:30 BUN/Creatinine Ratio 35 % 12/24/20 04:30 Glucose 175 mg/dL (75-100) H 12/24/20 04:30 POC Glucose 153 mg/dL (70-105) H 12/24/20 05:24 Lactic Acid 1.70 mmol/L (0.7-2.0) 12/20/20 16:20 Calcium 6.8 mg/dL (8.4-10.2) L 12/24/20 04:30 Phosphorus 4.10 mg/dL (2.5-4.5) 12/24/20 04:30 Magnesium 3.00 mg/dL (1.7-2.3) H 12/24/20 04:30 Total Bilirubin 0.40 mg/dL (0.1-1.2) 12/24/20 04:30 AST 40 units/L (5-40) 12/24/20 04:30 ALT 17 units/L (7-56) 12/24/20 04:30 Alkaline Phosphatase 53 units/L (35-129) 12/24/20 04:30 Troponin T < 0.010 ng/mL (0.00-0.029) 12/20/20 13:58 Total Protein 5.7 g/dL (6.3-8.2) L 12/24/20 04:30 Albumin 1.8 g/dL (3.9-5) L 12/24/20 04:30 Albumin/Globulin Ratio 0.5 % 12/24/20 04:30 Arterial Blood Glucose 180 mg/dL (65-95) H 12/24/20 04:19 Arterial Blood Ionized Calcium 3.7 mg/dL (4.6-5.3) L 12/24/20 04:19 Urine Color Yellow (Yellow) 12/23/20 12:15 Urine Turbidity Cloudy (Clear) 12/23/20 12:15 Urine pH 5.0 (5.0-7.0) 12/23/20 12:15 Ur Specific [place] 1.019 (1.003-1.030) 12/23/20 12:15 Urine Protein <15 mg/dl mg/dL (Negative) 12/23/20 12:15 Urine Glucose (UA) Neg mg/dL (Negative) 12/23/20 12:15 Urine Ketones Neg mg/dL (Negative) 12/23/20 12:15 Urine Blood Sm (Negative) 12/23/20 12:15 Urine Nitrite Neg (Negative) 12/23/20 12:15 Urine Bilirubin Neg (Negative) 12/23/20 12:15 Urine Urobilinogen < 2.0 mg/dL (<2.0) 12/23/20 12:15 Ur Leukocyte Esterase Neg (Negative) 12/23/20 12:15 Urine WBC (Auto) 5.0 /HPF (0.0-6.0) 12/23/20 12:15 Urine RBC (Auto) 2.0 /HPF (0.0-6.0) 12/23/20 12:15 U Epithel Cells (Auto) < 1.0 /HPF (0-13.0) 12/20/20 Unknown Urine Bacteria (Auto) 1+ /HPF (Negative) 12/23/20 12:15 Triple Phos Crystals 2+ 12/23/20 12:15 Hyaline Casts 19 /LPF 12/20/20 Unknown Urine Mucus Few /HPF 12/23/20 12:15 Urine Eosinophils None seen (None Seen) 12/23/20 12:15 Urine Creatinine 78.1 mg/dL (0.1-20.0) H 12/23/20 12:15 Urine Sodium 13 mmol/L 12/23/20 12:15 Fraction Sodium Excret 0.2 12/23/20 12:15 Random Vancomycin 7.9 ug/mL (0-40.0) 12/23/20 12:15 Coronavirus (PCR) Negative (Negative) 12/21/20 Unknown Blood Type A NEGATIVE 12/20/20 15:06 Antibody Screen Negative 12/20/20 15:06 Microbiology: Microbiology 12/20/20 13:58 Peripheral/Venous Blood Culture - Preliminary NO GROWTH AFTER 72 HOURS 12/20/20 13:58 Peripheral/Venous Blood Culture - Preliminary NO GROWTH AFTER 72 HOURS 12/20/20 04:50 Tracheal Aspirate Sputum Culture - Preliminary 12/20/20 Unknown Urine,Clean Catch Urine Culture - Final [place]/IV: Voiding Method Indwelling Catheter Active Medications - Current Medications Current Medications: Generic Name Dose Route Start Last Admin Trade Name Freq PRN Reason Stop Dose Admin Acetaminophen 650 mg 12/21/20 11:51 12/24/20 00:01 Acetaminophen 650 Mg Rect Supp MS 650 mg Q4H PRN Administration TEMP >/=100.4 Dextrose 50 ml 12/24/20 10:49 Dextrose 50% In Water (25gm) 50 Ml Syringe IV Q30MIN PRN Hypoglycemia Protocol Famotidine 20 mg 12/20/20 22:00 12/23/20 22:03 Famotidine 20 Mg/2 Ml Inj IV 20 mg BID ASCENCION Administration Fentanyl 50 mcg 12/20/20 21:58 12/21/20 03:46 Fentanyl 100 Mcg/2 Ml Inj IV 50 mcg Q10MIN PRN Administration ANALGESIA Hydrophilic Ointment 1 applic 12/20/20 21:58 Lip Therapy Vaseline TP Q2HR PRN Dry Lips Fentanyl Citrate 2,000 mcg in 100 mls @ 6.01 mls/hr 12/20/20 22:00 12/24/20 10:41 Fentanyl Drip Premix IV 5 mcg/kg/hr TITR ASCENCION 30.051 mls/hr Administration Protocol 1 MCG/KG/HR Propofol 1,000 mg in 100 mls @ 3.606 mls/hr 12/20/20 22:00 12/24/20 08:46 Diprivan 10 Mg/Ml IV 30 mcg/kg/min TITR ASCENCION 21.636 mls/hr Titration Protocol 5 MCG/KG/MIN NORepinephrine/NS 8 MG-250 ML 8 mg in 250 mls @ 3.75 mls/hr 12/21/20 09:00 12/24/20 08:46 Norepinephrine/Ns 8 Mg-250 Ml (Double Conc) IV 26 mcg/min TITRATE ASCENCION 48.75 mls/hr Titration Protocol 2 MCG/MIN Fluconazole 200 mls @ 100 mls/hr 12/23/20 13:00 12/23/20 18:26 Diflucan IV 100 mls/hr Q24H ASCENCION Administration Protocol Dextrose 1,000 mls @ 100 mls/hr 12/23/20 13:00 12/24/20 06:20 D5w IV 100 mls/hr DIRECT ASCENCION Administration Piperacillin Sod/Tazobactam Sod 4.5 gm in 100 mls @ 200 mls/hr 12/23/20 15:00 12/24/20 06:20 Zosyn/Ns 4.5gm/100ml IV 200 mls/hr Q8H ASCENCION Administration Protocol Vasopressin 20 unit/ Sodium 101 mls @ 9.09 mls/hr 12/24/20 09:00 Chloride IV TITR ASCENCION Protocol 0.03 UNITS/MIN Insulin Human Regular 0 units 12/24/20 11:00 Insulin Regular, Human 100 Units/1 Ml SUB-Q Q6H ASCENCION Protocol Multi-Ingred Cream/Lotion/Oil/Oint 1 applic 12/20/20 21:58 Mineral Oil/Petrolatum, White Ophth Oint 3.5 Gm OU Q4HR PRN Dry Eye(s) Senna/Docusate Sodium 1 tab 12/20/20 22:00 12/24/20 07:59 Sennosides/Docusate Sodium 8.6/50 Mg Tab FEEDTUBE Not Given BID ASCENCION Sodium Chloride 10 ml 12/20/20 22:00 12/24/20 08:26 Sodium Chloride 0.9% 10 Ml Flush Syringe IV Not Given BID ASCENCION Sodium Chloride 10 ml 12/20/20 16:42 Sodium Chloride 0.9% 10 Ml Flush Syringe IV PRN PRN LINE FLUSH Nutrition/Malnutrition Assess - Dietary Evaluation Nutrition/Malnutrition Findings: Nutrition Notes Start: 12/21/20 09:06 Freq: Status: Active Protocol: Document 12/24/20 09:40 CW (Rec: 06/05/21 10:06 CW [id number]) Nutrition Notes Initial or Follow up Reassessment Current Diagnosis Coronary Artery Disease, Hypertension,Small Bowel Obstruction,Hyperlipidemia Other Pertinent Diagnosis gangrenous small bowel, s/p small bowel ressection, peritonitis Current Diet NPO Labs/Tests Na 155 Cl 116.1 BUN 52 Cr 1.5 BG 175 Ca 6.8 Mg 3 Pertinent Medications D5W at 100 ml/hr Height 6 ft Weight 120.202 kg [place] Body Weight (kg) 80.90 BMI 35.9 Weight Status Morbidly Obese Subjective/Other Information F/U for initiate TPN via central line per verbal order from MD Cherry at 1045a on 12/23. Verbal confirmation to initiate CPN via central line from [employer] Kings at 940A today. Will intitiate protein at ~ half protein needs for renal protection. Percent of energy/protein needs met: 0%/0% Burn Absent Trauma Absent GI Symptoms Other Current % PO Negligible Minimum of two criteria No physical signs of malnutrition #2 Nutrition Diagnosis Increased nutrient needs ( specify in comment below) Diagnosis Progress(for reassessment Continues documentation) #1 Nutrition Diagnosis Inadequate oral intake Diagnosis Progress(for reassessment Continues documentation) Is patient on ventilator? Yes Is Patient Ambulatory and/or Out of Bed No REE-([facility]-confined to bed) 2470.248 Kcal/Kg value to use for calculation 17 Approximate Energy Requirements Using 2042 kcal/Kg Calculation Used for Recommendations Kcal/kg Additional Notes Protein: >2g/IBW (>162g) Fluid: 1 ml/kcal or per Nutrition Intervention Change Diet Order: Initiate CPN Nutrition Support: CPN at 100 ml/hr; D 6.3%; AA 2 .5%; Na 0 mEq; K 40 mEq; Ca 0mEq; phos 0 mmol; Mg 0 mEq; Cl/acetate 0/100 MVI, Thiamine Kcal 596 Protein (gm) 60 Carbohydrates (gm) 150 Fat (gm) 0 Fluid (mL) 2,400 Goal #1 start CPN Anticipated Discharge Needs: Unable to determine at this time Follow-Up By: 12/25/20 Additional Comments F/U for labs in am (BMP, mg, phos) <ALEN CALDERON O - Last Filed: 12/24/20 15:31> History Interval history: This is a 60-year-old male with obesity, hypertension, nicotine dependence, PVD s/p stent placement on dual antiplatelet therapy, hyperlipidemia, OA, GERD, ventral hernia and small bowel obstruction who was admitted with small bowel obstruction and peritonitis. he is s/p ex lap, extensive lysis of adhesions, small bowel resection (removal of 70 cm necrotic small bowel segment), peritoneal lavage and ABThera abdominal wound VAC placement. I have seen and evaluated the patient and discussed with Nurse Practitioner. I agree with the findings and the plan of care as documented in the Nurse Practitioner's note. Hospitalist Physical - Constitutional Vitals: Temp Pulse Resp BP Pulse Ox 100.4 F H 83 24 114/55 94 12/24/20 12:00 12/24/20 15:15 12/24/20 15:15 12/24/20 15:15 12/24/20 15:15 HEART Score - HEART Score Troponin: Troponin T < 0.010 ng/mL (0.00-0.029) 12/20/20 13:58 Results - Labs CBC & Chem 7: 12/24/20 04:30 12/24/20 04:30 Labs: Laboratory Last Values WBC 18.3 K/mm3 (4.5-11.0) H 12/24/20 04:30 RBC 4.66 M/mm3 (3.65-5.03) 12/24/20 04:30 Hgb 13.0 gm/dl (11.8-15.2) 12/24/20 04:30 Hct 41.0 % (35.5-45.6) 12/24/20 04:30 MCV 88 fl (84-94) 12/24/20 04:30 MCH 28 pg (28-32) 12/24/20 04:30 MCHC 32 % (32-34) 12/24/20 04:30 RDW 16.5 % (13.2-15.2) H 12/24/20 04:30 Plt Count 252 K/mm3 (140-440) 12/24/20 04:30 Add Manual Diff Complete 12/21/20 08:14 Total Counted 100 12/21/20 08:14 Seg Neutrophils % Veneer Layer 12/21/20 08:14 Seg Neuts % (Manual) 91.0 % (40.0-70.0) H 12/21/20 08:14 Lymphocytes % (Manual) 3.0 % (13.4-35.0) L 12/21/20 08:14 Monocytes % (Manual) 6.0 % (0.0-7.3) 12/21/20 08:14 Nucleated RBC % Not Reportable 12/21/20 08:14 Seg Neutrophils # Man 21.7 K/mm3 (1.8-7.7) H 12/21/20 08:14 Band Neutrophils # 0.0 K/mm3 12/21/20 08:14 Lymphocytes # (Manual) 0.7 K/mm3 (1.2-5.4) L 12/21/20 08:14 Abs React Lymphs (Man) 0.0 K/mm3 12/21/20 08:14 Monocytes # (Manual) 1.4 K/mm3 (0.0-0.8) H 12/21/20 08:14 Eosinophils # (Manual) 0.0 K/mm3 (0.0-0.4) 12/21/20 08:14 Basophils # (Manual) 0.0 K/mm3 (0.0-0.1) 12/21/20 08:14 Metamyelocytes # 0.0 K/mm3 12/21/20 08:14 Myelocytes # 0.0 K/mm3 12/21/20 08:14 Promyelocytes # 0.0 K/mm3 12/21/20 08:14 Blast Cells # 0.0 K/mm3 12/21/20 08:14 WBC Morphology Not Reportable 12/21/20 08:14 Hypersegmented Neuts Not Reportable 12/21/20 08:14 Hyposegmented Neuts Not Reportable 12/21/20 08:14 Hypogranular Neuts Not Reportable 12/21/20 08:14 Smudge Cells Not Reportable 12/21/20 08:14 Toxic Granulation Not Reportable 12/21/20 08:14 Toxic Vacuolation Not Reportable 12/21/20 08:14 Dohle Bodies Not Reportable 12/21/20 08:14 Pelger-Huet Anomaly Not Reportable 12/21/20 08:14 Mirian Rods Not Reportable 12/21/20 08:14 Platelet Estimate Consistent w auto 12/21/20 08:14 Clumped Platelets Not Reportable 12/21/20 08:14 Plt Clumps, EDTA Not Reportable 12/21/20 08:14 Large Platelets Not Reportable 12/21/20 08:14 Giant Platelets Not Reportable 12/21/20 08:14 Platelet Satelliting Not Reportable 12/21/20 08:14 Plt Morphology Comment Not Reportable 12/21/20 08:14 RBC Morphology Normal 12/21/20 08:14 Dimorphic RBCs Not Reportable 12/21/20 08:14 Polychromasia Not Reportable 12/21/20 08:14 Hypochromasia Not Reportable 12/21/20 08:14 Poikilocytosis Not Reportable 12/21/20 08:14 Anisocytosis Not Reportable 12/21/20 08:14 Microcytosis Not Reportable 12/21/20 08:14 Macrocytosis Not Reportable 12/21/20 08:14 Spherocytes Not Reportable 12/21/20 08:14 Pappenheimer Bodies Not Reportable 12/21/20 08:14 Sickle Cells Not Reportable 12/21/20 08:14 Target Cells Not Reportable 12/21/20 08:14 Tear Drop Cells Not Reportable 12/21/20 08:14 Ovalocytes Not Reportable 12/21/20 08:14 Helmet Cells Not Reportable 12/21/20 08:14 Mart-Sigel Bodies Not Reportable 12/21/20 08:14 Stryker Rings Not Reportable 12/21/20 08:14 [place] Cells Not Reportable 12/21/20 08:14 Bite Cells Not Reportable 12/21/20 08:14 Crenated Cell Not Reportable 12/21/20 08:14 Elliptocytes Not Reportable 12/21/20 08:14 Acanthocytes (Spur) Not Reportable 12/21/20 08:14 Rouleaux Not Reportable 12/21/20 08:14 Hemoglobin C Crystals Not Reportable 12/21/20 08:14 Schistocytes Not Reportable 12/21/20 08:14 Malaria parasites Not Reportable 12/21/20 08:14 Dylon Bodies Not Reportable 12/21/20 08:14 Hem Pathologist Commnt No 12/21/20 08:14 APTT 49.4 Sec. (24.2-36.6) H 12/20/20 13:58 ABG pH 7.404 (7.320-7.450) 12/24/20 04:19 POC ABG pCO2 40.7 mmHg (32.0-48.0) 12/24/20 04:19 ABG pCO2 51.0 mm Hg 12/20/20 21:30 POC ABG pO2 97.1 mmHg (83-108) 12/24/20 04:19 ABG pO2 104.4 mm Hg (80.0-90.0) H 12/20/20 21:30 POC ABG HCO3 24.9 12/24/20 04:19 ABG HCO3 25.3 mmol/L (20.0-26.0) 12/20/20 21:30 ABG O2 Saturation 96.9 (0-100) 12/24/20 04:19 ABG O2 Content 20.3 (0.0-44) 12/20/20 21:30 POC ABG Base Excess 0.1 12/24/20 04:19 ABG Base Excess -1.7 mmol/L (-2.0-3.0) 12/20/20 21:30 ABG Hemoglobin 13.0 (12.0-17.5) 12/24/20 04:19 ABG Oxyhemoglobin 95.8 (94-98) 12/24/20 04:19 ABG Carboxyhemoglobin 1.3 % (0.0-5.0) 12/20/20 21:30 ABG Methemoglobin 0.3 (0.0-1.5) 12/24/20 04:19 ABG Sodium 149.7 mmol/L (136.0-145.0) H 12/24/20 04:19 ABG Potassium 3.8 mmol/L (3.40-4.50) 12/24/20 04:19 ABG Chloride 116.0 mmol/L (98-107) H 12/24/20 04:19 ABG Glucose 180 mg/dL (65-95) H 12/24/20 04:19 Oxyhemoglobin 95.2 % (95.0-99.0) 12/20/20 21:30 Carboxyhemoglobin 0.8 (0.5-1.5) 12/24/20 04:19 FiO2 100 % 12/20/20 21:30 FiO2 % 50.0 12/24/20 04:19 Sodium 155 mmol/L (137-145) H 12/24/20 04:30 Potassium 4.0 mmol/L (3.6-5.0) 12/24/20 04:30 Chloride 116.1 mmol/L (98-107) H 12/24/20 04:30 Carbon Dioxide 29 mmol/L (22-30) 12/24/20 04:30 Anion Gap 14 mmol/L 12/24/20 04:30 BUN 52 mg/dL (9-20) H 12/24/20 04:30 Creatinine 1.5 mg/dL (0.8-1.3) H 12/24/20 04:30 Estimated GFR 48 ml/min 12/24/20 04:30 BUN/Creatinine Ratio 35 % 12/24/20 04:30 Glucose 175 mg/dL (75-100) H 12/24/20 04:30 POC Glucose 154 mg/dL (70-105) H 12/24/20 11:21 Lactic Acid 1.70 mmol/L (0.7-2.0) 12/20/20 16:20 Calcium 6.8 mg/dL (8.4-10.2) L 12/24/20 04:30 Phosphorus 4.10 mg/dL (2.5-4.5) 12/24/20 04:30 Magnesium 3.00 mg/dL (1.7-2.3) H 12/24/20 04:30 Total Bilirubin 0.40 mg/dL (0.1-1.2) 12/24/20 04:30 AST 40 units/L (5-40) 12/24/20 04:30 ALT 17 units/L (7-56) 12/24/20 04:30 Alkaline Phosphatase 53 units/L (35-129) 12/24/20 04:30 Troponin T < 0.010 ng/mL (0.00-0.029) 12/20/20 13:58 Total Protein 5.7 g/dL (6.3-8.2) L 12/24/20 04:30 Albumin 1.8 g/dL (3.9-5) L 12/24/20 04:30 Albumin/Globulin Ratio 0.5 % 12/24/20 04:30 Arterial Blood Glucose 180 mg/dL (65-95) H 12/24/20 04:19 Arterial Blood Ionized Calcium 3.7 mg/dL (4.6-5.3) L 12/24/20 04:19 Urine Color Yellow (Yellow) 12/23/20 12:15 Urine Turbidity Cloudy (Clear) 12/23/20 12:15 Urine pH 5.0 (5.0-7.0) 12/23/20 12:15 Ur Specific [place] 1.019 (1.003-1.030) 12/23/20 12:15 Urine Protein <15 mg/dl mg/dL (Negative) 12/23/20 12:15 Urine Glucose (UA) Neg mg/dL (Negative) 12/23/20 12:15 Urine Ketones Neg mg/dL (Negative) 12/23/20 12:15 Urine Blood Sm (Negative) 12/23/20 12:15 Urine Nitrite Neg (Negative) 12/23/20 12:15 Urine Bilirubin Neg (Negative) 12/23/20 12:15 Urine Urobilinogen < 2.0 mg/dL (<2.0) 12/23/20 12:15 Ur Leukocyte Esterase Neg (Negative) 12/23/20 12:15 Urine WBC (Auto) 5.0 /HPF (0.0-6.0) 12/23/20 12:15 Urine RBC (Auto) 2.0 /HPF (0.0-6.0) 12/23/20 12:15 U Epithel Cells (Auto) < 1.0 /HPF (0-13.0) 12/20/20 Unknown Urine Bacteria (Auto) 1+ /HPF (Negative) 12/23/20 12:15 Triple Phos Crystals 2+ 12/23/20 12:15 Hyaline Casts 19 /LPF 12/20/20 Unknown Urine Mucus Few /HPF 12/23/20 12:15 Urine Eosinophils None seen (None Seen) 12/23/20 12:15 Urine Creatinine 78.1 mg/dL (0.1-20.0) H 12/23/20 12:15 Urine Sodium 13 mmol/L 12/23/20 12:15 Fraction Sodium Excret 0.2 12/23/20 12:15 Random Vancomycin 7.9 ug/mL (0-40.0) 12/23/20 12:15 Coronavirus (PCR) Negative (Negative) 12/21/20 Unknown Blood Type A NEGATIVE 12/20/20 15:06 Antibody Screen Negative 12/20/20 15:06 Microbiology: Microbiology 12/20/20 13:58 Peripheral/Venous Blood Culture - Preliminary NO GROWTH AFTER 4 DAYS 12/20/20 13:58 Peripheral/Venous Blood Culture - Preliminary NO GROWTH AFTER 4 DAYS 12/20/20 04:50 Tracheal Aspirate Sputum Culture - Preliminary 12/20/20 Unknown Urine,Clean Catch Urine Culture - Final Lawrence/IV: Voiding Method Indwelling Catheter Active Medications - Current Medications Current Medications: Generic Name Dose Route Start Last Admin Trade Name Freq PRN Reason Stop Dose Admin Acetaminophen 650 mg 12/21/20 11:51 12/24/20 00:01 Acetaminophen 650 Mg Rect Supp MS 650 mg Q4H PRN Administration TEMP >/=100.4 Dextrose 50 ml 12/24/20 10:49 Dextrose 50% In Water (25gm) 50 Ml Syringe IV Q30MIN PRN Hypoglycemia Protocol Famotidine 20 mg 12/20/20 22:00 12/24/20 11:47 Famotidine 20 Mg/2 Ml Inj IV 20 mg BID ASCENCION Administration Fentanyl 50 mcg 12/20/20 21:58 12/21/20 03:46 Fentanyl 100 Mcg/2 Ml Inj IV 50 mcg Q10MIN PRN Administration ANALGESIA Hydrophilic Ointment 1 applic 12/20/20 21:58 Lip Therapy Vaseline TP Q2HR PRN Dry Lips Fentanyl Citrate 2,000 mcg in 100 mls @ 6.01 mls/hr 12/20/20 22:00 12/24/20 13:41 Fentanyl Drip Premix IV 5 mcg/kg/hr TITR ASCENCION 30.051 mls/hr Administration Protocol 1 MCG/KG/HR Propofol 1,000 mg in 100 mls @ 3.606 mls/hr 12/20/20 22:00 12/24/20 13:41 Diprivan 10 Mg/Ml IV 40 mcg/kg/min TITR ASCENCION 28.848 mls/hr Administration Protocol 5 MCG/KG/MIN NORepinephrine/NS 8 MG-250 ML 8 mg in 250 mls @ 3.75 mls/hr 12/21/20 09:00 12/24/20 13:41 Norepinephrine/Ns 8 Mg-250 Ml (Double Conc) IV 26 mcg/min TITRATE ASCENCION 48.75 mls/hr Administration Protocol 2 MCG/MIN Fluconazole 200 mls @ 100 mls/hr 12/23/20 13:00 12/24/20 14:00 Diflucan IV 100 mls/hr Q24H ASCENCION Administration Protocol Dextrose 1,000 mls @ 100 mls/hr 12/23/20 13:00 12/24/20 14:29 D5w IV 12/24/20 20:00 100 mls/hr DIRECT ASCENCION Administration Piperacillin Sod/Tazobactam Sod 4.5 gm in 100 mls @ 200 mls/hr 12/23/20 15:00 12/24/20 14:31 Zosyn/Ns 4.5gm/100ml IV 200 mls/hr Q8H ASCENCION Administration Protocol Vasopressin 20 unit/ Sodium 101 mls @ 9.09 mls/hr 12/24/20 09:00 Chloride IV TITR ASCENCION Protocol 0.03 UNITS/MIN Amino Acids/Electrolytes/Dextrose 2,400 mls @ 100 mls/hr 12/24/20 20:00 Tpn Adult IV 12/25/20 19:59 DAILY@1999 [facility] Protocol Insulin Human Regular 0 units 12/24/20 11:00 12/24/20 12:49 Insulin Regular, Human 100 Units/1 Ml SUB-Q 1 units Q6H ASCENCION Administration Protocol Multi-Ingred Cream/Lotion/Oil/Oint 1 applic 12/20/20 21:58 Mineral Oil/Petrolatum, White Ophth Oint 3.5 Gm OU Q4HR PRN Dry Eye(s) Senna/Docusate Sodium 1 tab 12/20/20 22:00 12/24/20 11:43 Sennosides/Docusate Sodium 8.6/50 Mg Tab FEEDTUBE Not Given BID ASCENCION Sodium Chloride 10 ml 12/20/20 22:00 12/24/20 11:44 Sodium Chloride 0.9% 10 Ml Flush Syringe IV 10 ml BID ASCENCION Administration Sodium Chloride 10 ml 12/20/20 16:42 Sodium Chloride 0.9% 10 Ml Flush Syringe IV PRN PRN LINE FLUSH Nutrition/Malnutrition Assess - Dietary Evaluation Nutrition/Malnutrition Findings: Nutrition Notes Start: 12/21/20 09:06 Freq: Status: Active Protocol: Document 12/24/20 09:40 CW (Rec: 12/24/20 10:06 CW [id number]) Nutrition Notes Initial or Follow up Reassessment Current Diagnosis Coronary Artery Disease, Hypertension,Small Bowel Obstruction,Hyperlipidemia Other Pertinent Diagnosis gangrenous small bowel, s/p small bowel ressection, peritonitis Current Diet NPO Labs/Tests Na 155 Cl 116.1 BUN 52 Cr 1.5 BG 175 Ca 6.8 Mg 3 Pertinent Medications D5W at 100 ml/hr Height 6 ft Weight 120.202 kg [place] Body Weight (kg) 80.90 BMI 35.9 Weight Status Morbidly Obese Subjective/Other Information F/U for initiate TPN via central line per verbal order from MD Cherry at 1045a on 12/23. Verbal confirmation to initiate CPN via central line from WANDER Ku at 940A today. Will intitiate protein at ~ half protein needs for renal protection. Percent of energy/protein needs met: 0%/0% Burn Absent Trauma Absent GI Symptoms Other Current % PO Negligible Minimum of two criteria No physical signs of malnutrition #2 Nutrition Diagnosis Increased nutrient needs ( specify in comment below) Diagnosis Progress(for reassessment Continues documentation) #1 Nutrition Diagnosis Inadequate oral intake Diagnosis Progress(for reassessment Continues documentation) Is patient on ventilator? Yes Is Patient Ambulatory and/or Out of Bed No REE-([facility]-confined to bed) 2470.248 Kcal/Kg value to use for calculation 17 Approximate Energy Requirements Using 2042 kcal/Kg Calculation Used for Recommendations Kcal/kg Additional Notes Protein: >2g/IBW (>162g) Fluid: 1 ml/kcal or per MD Nutrition Intervention Change Diet Order: Initiate CPN Nutrition Support: CPN at 100 ml/hr; D 6.3%; AA 2 .5%; Na 0 mEq; K 40 mEq; Ca 0mEq; phos 0 mmol; Mg 0 mEq; Cl/acetate 0/100 MVI, Thiamine Kcal 596 Protein (gm) 60 Carbohydrates (gm) 150 Fat (gm) 0 Fluid (mL) 2,400 Goal #1 start CPN Anticipated Discharge Needs: Unable to determine at this time Follow-Up By: 12/25/20 Additional Comments F/U for labs in am (BMP, mg, phos)
[2020-12-24] MEDS ORDERED: LACTATED RINGERS 1,000 ML IV ONE ×3 (11:25→11:26)
[2020-12-24] MEDS: FAMOTIDINE 20 MG/2 ML INJ IV SCH ×2 (11:47→21:54)
--- NOTE | 2020-12-24 12:02 | Progress Note ---
Assessment and Plan 60 y/o male with abdominal catastrophe, s/p ex-lap with open abdomen, ventilated for pain control and support. 12/24/20: Adequate sedation to maintain RASS of -4. BP support as needed with pressors. Will give more fluid today. Renal function improving. Agree with D5W but Na will be corrected in TPN as well. TPN per nutrition. Supportive care. 1. Adequate sedation to RASS of -4 2 Support BP with meds as needed 3. Aggressive hydration 4. Follow up surgery recs. cct 31 minutes. Subjective Date of service: 12/24/20 Interval history: Renal numbers better with fluid. Taken to OR yesterday, still open with wound vac. Objective Vital Signs - 12hr 12/24/20 12/24/20 12/24/20 00:01 00:20 00:30 Temperature Pulse Rate 122 H 112 H 113 H Pulse Rate [ From Monitor] Respiratory 14 24 22 Rate Blood Pressure 98/53 109/64 102/69 O2 Sat by Pulse 99 99 99 Oximetry 12/24/20 12/24/20 12/24/20 00:41 00:50 01:00 Temperature Pulse Rate 114 H 114 H 113 H Pulse Rate [ From Monitor] Respiratory 22 18 21 Rate Blood Pressure 99/52 105/72 107/70 O2 Sat by Pulse 99 99 99 Oximetry 12/24/20 12/24/20 12/24/20 01:10 01:20 01:30 Temperature Pulse Rate 109 H 111 H 112 H Pulse Rate [ From Monitor] Respiratory 24 24 24 Rate Blood Pressure 102/69 109/67 108/65 O2 Sat by Pulse 99 99 99 Oximetry 12/24/20 12/24/20 12/24/20 01:40 01:45 02:00 Temperature Pulse Rate 109 H 98 H 112 H Pulse Rate [ From Monitor] Respiratory 24 24 21 Rate Blood Pressure 103/61 104/65 117/66 O2 Sat by Pulse 99 99 99 Oximetry 12/24/20 12/24/20 12/24/20 02:15 02:30 02:45 Temperature Pulse Rate 113 H 97 H 97 H Pulse Rate [ From Monitor] Respiratory 24 24 24 Rate Blood Pressure 100/64 108/64 101/56 O2 Sat by Pulse 96 100 100 Oximetry 12/24/20 12/24/20 12/24/20 03:00 03:15 03:19 Temperature 102.5 F H Pulse Rate 93 H 94 H Pulse Rate [ From Monitor] Respiratory 24 24 Rate Blood Pressure 103/62 104/64 O2 Sat by Pulse 100 100 Oximetry 12/24/20 12/24/20 12/24/20 03:30 03:45 04:00 Temperature Pulse Rate 92 H 92 H 93 H Pulse Rate [ 92 H From Monitor] Respiratory 24 24 24 Rate Blood Pressure 105/64 102/61 99/61 O2 Sat by Pulse 100 100 100 Oximetry 12/24/20 12/24/20 12/24/20 04:03 04:15 04:30 Temperature Pulse Rate 92 H 92 H 92 H Pulse Rate [ From Monitor] Respiratory 24 24 Rate Blood Pressure 88/53 100/62 104/61 O2 Sat by Pulse 100 100 100 Oximetry 12/24/20 12/24/20 12/24/20 04:45 05:00 05:15 Temperature Pulse Rate 92 H 92 H 92 H Pulse Rate [ From Monitor] Respiratory 24 24 24 Rate Blood Pressure 103/66 108/67 106/64 O2 Sat by Pulse 100 100 100 Oximetry 12/24/20 12/24/20 12/24/20 05:30 05:40 05:50 Temperature Pulse Rate 92 H 111 H 112 H Pulse Rate [ From Monitor] Respiratory 24 24 25 H Rate Blood Pressure 92/53 129/75 112/65 O2 Sat by Pulse 100 100 100 Oximetry 12/24/20 12/24/20 12/24/20 06:00 06:10 06:20 Temperature Pulse Rate 110 H 110 H 110 H Pulse Rate [ From Monitor] Respiratory 24 24 24 Rate Blood Pressure 110/69 114/64 108/68 O2 Sat by Pulse 100 100 100 Oximetry 12/24/20 12/24/20 12/24/20 06:31 06:40 06:50 Temperature Pulse Rate 112 H 112 H 112 H Pulse Rate [ From Monitor] Respiratory 23 24 23 Rate Blood Pressure 108/66 111/66 111/70 O2 Sat by Pulse 100 89 89 Oximetry 12/24/20 12/24/20 12/24/20 07:00 07:10 07:20 Temperature Pulse Rate 111 H 111 H 111 H Pulse Rate [ From Monitor] Respiratory 24 24 24 Rate Blood Pressure 121/76 113/71 115/68 O2 Sat by Pulse 99 100 100 Oximetry 12/24/20 12/24/20 12/24/20 07:31 07:41 07:50 Temperature Pulse Rate 110 H 113 H 112 H Pulse Rate [ From Monitor] Respiratory 24 15 14 Rate Blood Pressure 107/64 106/67 176/151 O2 Sat by Pulse 87 99 100 Oximetry 12/24/20 12/24/20 12/24/20 08:00 08:11 08:13 Temperature 100.4 F H Pulse Rate 111 H 111 H 112 H Pulse Rate [ 108 H From Monitor] Respiratory 23 24 Rate Blood Pressure 103/58 103/58 93/58 O2 Sat by Pulse 100 100 100 Oximetry 12/24/20 12/24/20 12/24/20 08:15 08:31 08:41 Temperature Pulse Rate 111 H 111 H 109 H Pulse Rate [ From Monitor] Respiratory 24 23 24 Rate Blood Pressure 103/58 103/58 103/58 O2 Sat by Pulse 100 87 99 Oximetry 12/24/20 12/24/20 12/24/20 08:51 09:00 09:15 Temperature Pulse Rate 109 H 109 H 108 H Pulse Rate [ From Monitor] Respiratory 24 24 24 Rate Blood Pressure 115/69 109/64 119/69 O2 Sat by Pulse 98 97 98 Oximetry 12/24/20 12/24/20 12/24/20 09:21 09:30 09:40 Temperature Pulse Rate 109 H 110 H 110 H Pulse Rate [ From Monitor] Respiratory 24 24 24 Rate Blood Pressure 119/69 101/69 101/69 O2 Sat by Pulse 98 97 96 Oximetry 12/24/20 12/24/20 12/24/20 09:50 10:00 10:10 Temperature Pulse Rate 110 H 110 H 108 H Pulse Rate [ From Monitor] Respiratory 24 24 24 Rate Blood Pressure 103/65 110/64 103/65 O2 Sat by Pulse 96 95 96 Oximetry 12/24/20 12/24/20 12/24/20 10:20 10:30 10:40 Temperature Pulse Rate 111 H 110 H 111 H Pulse Rate [ From Monitor] Respiratory 24 16 17 Rate Blood Pressure 95/58 103/64 103/64 O2 Sat by Pulse 95 95 96 Oximetry 12/24/20 12/24/20 12/24/20 10:50 11:00 11:10 Temperature Pulse Rate 110 H 111 H 109 H Pulse Rate [ From Monitor] Respiratory 22 24 23 Rate Blood Pressure 103/67 105/64 105/64 O2 Sat by Pulse 96 95 95 Oximetry 12/24/20 12/24/20 11:16 11:42 Temperature Pulse Rate 107 H 108 H Pulse Rate [ From Monitor] Respiratory 20 Rate Blood Pressure 81/45 118/61 O2 Sat by Pulse 96 97 Oximetry CBC and BMP: 12/24/20 04:30 12/24/20 04:30 ABG, PT/INR, D-dimer: ABG ABG pH 7.404 (7.320-7.450) 12/24/20 04:19 POC ABG pCO2 40.7 mmHg (32.0-48.0) 12/24/20 04:19 ABG pCO2 51.0 mm Hg 12/20/20 21:30 POC ABG pO2 97.1 mmHg (83-108) 12/24/20 04:19 ABG pO2 104.4 mm Hg (80.0-90.0) H 12/20/20 21:30 POC ABG HCO3 24.9 12/24/20 04:19 ABG O2 Saturation 96.9 (0-100) 12/24/20 04:19 Abnormal lab findings: Abnormal Labs 12/20/20 12/20/20 12/20/20 13:58 13:58 13:58 WBC 41.1 H* RBC 5.59 H Hgb 16.2 H Hct 47.7 H RDW 15.5 H Plt Count 486 H Seg Neuts % (Manual) Lymphocytes % (Manual) Seg Neutrophils # Man Lymphocytes # (Manual) Monocytes # (Manual) APTT ABG pH POC ABG pO2 ABG pO2 ABG Sodium ABG Chloride ABG Glucose Carboxyhemoglobin Sodium 130 L Chloride 80.7 L BUN 37 H Creatinine Glucose 101 H POC Glucose Lactic Acid 3.20 H* Calcium Magnesium Alkaline Phosphatase 142 H Total Protein 6.2 L Albumin 2.2 L Arterial Blood Glucose Arterial Blood Ionized Calcium Urine Creatinine 12/20/20 12/20/20 12/20/20 13:58 20:35 21:30 WBC RBC Hgb Hct RDW Plt Count Seg Neuts % (Manual) Lymphocytes % (Manual) Seg Neutrophils # Man Lymphocytes # (Manual) Monocytes # (Manual) APTT 49.4 H ABG pH 7.313 L POC ABG pO2 ABG pO2 104.4 H ABG Sodium ABG Chloride ABG Glucose Carboxyhemoglobin Sodium Chloride BUN Creatinine Glucose POC Glucose 122 H Lactic Acid Calcium Magnesium Alkaline Phosphatase Total Protein Albumin Arterial Blood Glucose Arterial Blood Ionized Calcium Urine Creatinine 12/21/20 12/21/20 12/21/20 03:06 08:14 08:14 WBC 23.9 H RBC Hgb Hct RDW 15.7 H Plt Count Seg Neuts % (Manual) 91.0 H Lymphocytes % (Manual) 3.0 L Seg Neutrophils # Man 21.7 H Lymphocytes # (Manual) 0.7 L Monocytes # (Manual) 1.4 H APTT ABG pH 7.464 H POC ABG pO2 202.9 H ABG pO2 ABG Sodium 133.7 L ABG Chloride ABG Glucose 122 H Carboxyhemoglobin Sodium Chloride BUN 46 H Creatinine Glucose 103 H POC Glucose Lactic Acid Calcium 6.6 L D Magnesium Alkaline Phosphatase Total Protein 5.4 L Albumin 2.3 L Arterial Blood Glucose 122 H Arterial Blood Ionized Calcium 3.5 L Urine Creatinine 12/21/20 12/22/20 12/22/20 17:18 04:45 04:45 WBC 22.9 H RBC Hgb Hct RDW 15.7 H Plt Count Seg Neuts % (Manual) Lymphocytes % (Manual) Seg Neutrophils # Man Lymphocytes # (Manual) Monocytes # (Manual) APTT ABG pH POC ABG pO2 ABG pO2 ABG Sodium ABG Chloride ABG Glucose Carboxyhemoglobin Sodium 146 H Chloride BUN 45 H Creatinine Glucose 116 H POC Glucose 108 H Lactic Acid Calcium 6.9 L Magnesium Alkaline Phosphatase Total Protein Albumin Arterial Blood Glucose Arterial Blood Ionized Calcium Urine Creatinine 12/22/20 12/22/20 12/22/20 05:00 11:38 23:26 WBC RBC Hgb Hct RDW Plt Count Seg Neuts % (Manual) Lymphocytes % (Manual) Seg Neutrophils # Man Lymphocytes # (Manual) Monocytes # (Manual) APTT ABG pH 7.462 H POC ABG pO2 ABG pO2 ABG Sodium ABG Chloride ABG Glucose 118 H Carboxyhemoglobin Sodium Chloride BUN Creatinine Glucose POC Glucose 115 H 110 H Lactic Acid Calcium Magnesium Alkaline Phosphatase Total Protein Albumin Arterial Blood Glucose 118 H Arterial Blood Ionized Calcium 3.8 L Urine Creatinine 12/23/20 12/23/20 12/23/20 04:43 04:45 04:45 WBC 22.2 H RBC Hgb Hct RDW 16.1 H Plt Count Seg Neuts % (Manual) Lymphocytes % (Manual) Seg Neutrophils # Man Lymphocytes # (Manual) Monocytes # (Manual) APTT ABG pH POC ABG pO2 ABG pO2 ABG Sodium 147.4 H ABG Chloride 112.0 H ABG Glucose 130 H Carboxyhemoglobin 0.4 L Sodium 154 H D Chloride 110.9 H BUN 54 H Creatinine 1.8 H Glucose 115 H POC Glucose Lactic Acid Calcium 7.0 L Magnesium Alkaline Phosphatase Total Protein Albumin Arterial Blood Glucose 130 H Arterial Blood Ionized Calcium 3.8 L Urine Creatinine 12/23/20 12/23/20 12/23/20 05:17 11:22 12:15 WBC RBC Hgb Hct RDW Plt Count Seg Neuts % (Manual) Lymphocytes % (Manual) Seg Neutrophils # Man Lymphocytes # (Manual) Monocytes # (Manual) APTT ABG pH POC ABG pO2 ABG pO2 ABG Sodium ABG Chloride ABG Glucose Carboxyhemoglobin Sodium Chloride BUN Creatinine Glucose POC Glucose 116 H 130 H Lactic Acid Calcium Magnesium Alkaline Phosphatase Total Protein Albumin Arterial Blood Glucose Arterial Blood Ionized Calcium Urine Creatinine 78.1 H 12/23/20 12/23/20 12/24/20 12:15 23:15 04:19 WBC RBC Hgb Hct RDW Plt Count Seg Neuts % (Manual) Lymphocytes % (Manual) Seg Neutrophils # Man Lymphocytes # (Manual) Monocytes # (Manual) APTT ABG pH POC ABG pO2 ABG pO2 ABG Sodium 149.7 H ABG Chloride 116.0 H ABG Glucose 180 H Carboxyhemoglobin Sodium 154 H Chloride BUN Creatinine 1.5 H Glucose POC Glucose 132 H Lactic Acid Calcium Magnesium Alkaline Phosphatase Total Protein Albumin Arterial Blood Glucose 180 H Arterial Blood Ionized Calcium 3.7 L Urine Creatinine 12/24/20 12/24/20 12/24/20 04:30 04:30 05:24 WBC 18.3 H RBC Hgb Hct RDW 16.5 H Plt Count Seg Neuts % (Manual) Lymphocytes % (Manual) Seg Neutrophils # Man Lymphocytes # (Manual) Monocytes # (Manual) APTT ABG pH POC ABG pO2 ABG pO2 ABG Sodium ABG Chloride ABG Glucose Carboxyhemoglobin Sodium 155 H Chloride 116.1 H BUN 52 H Creatinine 1.5 H Glucose 175 H POC Glucose 153 H Lactic Acid Calcium 6.8 L Magnesium 3.00 H Alkaline Phosphatase Total Protein 5.7 L Albumin 1.8 L Arterial Blood Glucose Arterial Blood Ionized Calcium Urine Creatinine 06/05/21 11:21 WBC RBC Hgb Hct RDW Plt Count Seg Neuts % (Manual) Lymphocytes % (Manual) Seg Neutrophils # Man Lymphocytes # (Manual) Monocytes # (Manual) APTT ABG pH POC ABG pO2 ABG pO2 ABG Sodium ABG Chloride ABG Glucose Carboxyhemoglobin Sodium Chloride BUN Creatinine Glucose POC Glucose 154 H Lactic Acid Calcium Magnesium Alkaline Phosphatase Total Protein Albumin Arterial Blood Glucose Arterial Blood Ionized Calcium Urine Creatinine
--- NOTE | 2020-12-24 12:20 | Progress Note ---
Assessment and Plan Impression * Acute kidney injury. Most likely prerenal. However do need to consider progression to ATN as well * Incarcerated hernia with ischemic bowel. Status post bowel resection * Hypernatremia * Sepsis * Respiratory failure Recommendations * Acute kidney injury most likely prerenal. His urine shows trace protein and only 2 RBCs per high-power field. Fractional excretion of sodium is 0.2% . His baseline creatinine is approximately 0.7. * Agree with IV hydration. * Patient currently has indwelling Lawrence catheter in place and is also nonoliguric. * Continue hypotonic IV fluid after fluid bolus * Pressors to maintain MAP greater than 65 * Avoid nephrotoxins * Monitor fluid status and electrolytes closely Subjective Date of service: 12/24/20 Interval history: Patient remains on the ventilator. Currently on 50% FiO2. Sedated. Receiving LR bolus because of hypotension. He is still on Levophed drip Objective - Vital Signs Vital signs: Vital Signs - 12hr 12/24/20 12/24/20 12/24/20 00:20 00:30 00:41 Temperature Pulse Rate 112 H 113 H 114 H Pulse Rate [ From Monitor] Respiratory 24 22 22 Rate Blood Pressure 109/64 102/69 99/52 O2 Sat by Pulse 99 99 99 Oximetry 12/24/20 12/24/20 12/24/20 00:50 01:00 01:10 Temperature Pulse Rate 114 H 113 H 109 H Pulse Rate [ From Monitor] Respiratory 18 21 24 Rate Blood Pressure 105/72 107/70 102/69 O2 Sat by Pulse 99 99 99 Oximetry 12/24/20 12/24/20 12/24/20 01:20 01:30 01:40 Temperature Pulse Rate 111 H 112 H 109 H Pulse Rate [ From Monitor] Respiratory 24 24 24 Rate Blood Pressure 109/67 108/65 103/61 O2 Sat by Pulse 99 99 99 Oximetry 12/24/20 12/24/20 12/24/20 01:45 02:00 02:15 Temperature Pulse Rate 98 H 112 H 113 H Pulse Rate [ From Monitor] Respiratory 24 21 24 Rate Blood Pressure 104/65 117/66 100/64 O2 Sat by Pulse 99 99 96 Oximetry 12/24/20 12/24/20 12/24/20 02:30 02:45 03:00 Temperature Pulse Rate 97 H 97 H 93 H Pulse Rate [ From Monitor] Respiratory 24 24 24 Rate Blood Pressure 108/64 101/56 103/62 O2 Sat by Pulse 100 100 100 Oximetry 12/24/20 12/24/20 12/24/20 03:15 03:19 03:30 Temperature 102.5 F H Pulse Rate 94 H 92 H Pulse Rate [ From Monitor] Respiratory 24 24 Rate Blood Pressure 104/64 105/64 O2 Sat by Pulse 100 100 Oximetry 12/24/20 12/24/20 12/24/20 03:45 04:00 04:03 Temperature Pulse Rate 92 H 93 H 92 H Pulse Rate [ 92 H From Monitor] Respiratory 24 24 Rate Blood Pressure 102/61 99/61 88/53 O2 Sat by Pulse 100 100 100 Oximetry 12/24/20 12/24/20 12/24/20 04:15 04:30 04:45 Temperature Pulse Rate 92 H 92 H 92 H Pulse Rate [ From Monitor] Respiratory 24 24 24 Rate Blood Pressure 100/62 104/61 103/66 O2 Sat by Pulse 100 100 100 Oximetry 12/24/20 12/24/20 12/24/20 05:00 05:15 05:30 Temperature Pulse Rate 92 H 92 H 92 H Pulse Rate [ From Monitor] Respiratory 24 24 24 Rate Blood Pressure 108/67 106/64 92/53 O2 Sat by Pulse 100 100 100 Oximetry 12/24/20 12/24/20 12/24/20 05:40 05:50 06:00 Temperature Pulse Rate 111 H 112 H 110 H Pulse Rate [ From Monitor] Respiratory 24 25 H 24 Rate Blood Pressure 129/75 112/65 110/69 O2 Sat by Pulse 100 100 100 Oximetry 12/24/20 12/24/20 12/24/20 06:10 06:20 06:31 Temperature Pulse Rate 110 H 110 H 112 H Pulse Rate [ From Monitor] Respiratory 24 24 23 Rate Blood Pressure 114/64 108/68 108/66 O2 Sat by Pulse 100 100 100 Oximetry 12/24/20 12/24/20 12/24/20 06:40 06:50 07:00 Temperature Pulse Rate 112 H 112 H 111 H Pulse Rate [ From Monitor] Respiratory 24 23 24 Rate Blood Pressure 111/66 111/70 121/76 O2 Sat by Pulse 89 89 99 Oximetry 12/24/20 12/24/20 12/24/20 07:10 07:20 07:31 Temperature Pulse Rate 111 H 111 H 110 H Pulse Rate [ From Monitor] Respiratory 24 24 24 Rate Blood Pressure 113/71 115/68 107/64 O2 Sat by Pulse 100 100 87 Oximetry 12/24/20 12/24/20 12/24/20 07:41 07:50 08:00 Temperature 100.4 F H Pulse Rate 113 H 112 H 111 H Pulse Rate [ 108 H From Monitor] Respiratory 15 14 23 Rate Blood Pressure 106/67 176/151 103/58 O2 Sat by Pulse 99 100 100 Oximetry 12/24/20 12/24/20 12/24/20 08:11 08:13 08:15 Temperature Pulse Rate 111 H 112 H 111 H Pulse Rate [ From Monitor] Respiratory 24 24 Rate Blood Pressure 103/58 93/58 103/58 O2 Sat by Pulse 100 100 100 Oximetry 12/24/20 12/24/20 12/24/20 08:31 08:41 08:51 Temperature Pulse Rate 111 H 109 H 109 H Pulse Rate [ From Monitor] Respiratory 23 24 24 Rate Blood Pressure 103/58 103/58 115/69 O2 Sat by Pulse 87 99 98 Oximetry 12/24/20 12/24/20 12/24/20 09:00 09:15 09:21 Temperature Pulse Rate 109 H 108 H 109 H Pulse Rate [ From Monitor] Respiratory 24 24 24 Rate Blood Pressure 109/64 119/69 119/69 O2 Sat by Pulse 97 98 98 Oximetry 12/24/20 12/24/20 12/24/20 09:30 09:40 09:50 Temperature Pulse Rate 110 H 110 H 110 H Pulse Rate [ From Monitor] Respiratory 24 24 24 Rate Blood Pressure 101/69 101/69 103/65 O2 Sat by Pulse 97 96 96 Oximetry 12/24/20 12/24/20 12/24/20 10:00 10:10 10:20 Temperature Pulse Rate 110 H 108 H 111 H Pulse Rate [ From Monitor] Respiratory 24 24 24 Rate Blood Pressure 110/64 103/65 95/58 O2 Sat by Pulse 95 96 95 Oximetry 12/24/20 12/24/20 12/24/20 10:30 10:40 10:50 Temperature Pulse Rate 110 H 111 H 110 H Pulse Rate [ From Monitor] Respiratory 16 17 22 Rate Blood Pressure 103/64 103/64 103/67 O2 Sat by Pulse 95 96 96 Oximetry 12/24/20 12/24/20 12/24/20 11:00 11:10 11:16 Temperature Pulse Rate 111 H 109 H 107 H Pulse Rate [ From Monitor] Respiratory 24 23 20 Rate Blood Pressure 105/64 105/64 81/45 O2 Sat by Pulse 95 95 96 Oximetry 12/24/20 12/24/20 12/24/20 11:20 11:30 11:40 Temperature Pulse Rate 108 H 123 H 116 H Pulse Rate [ From Monitor] Respiratory 24 12 25 H Rate Blood Pressure 81/45 81/45 108/62 O2 Sat by Pulse 98 97 96 Oximetry 12/24/20 12/24/20 12/24/20 11:42 11:50 12:00 Temperature Pulse Rate 108 H 112 H 111 H Pulse Rate [ From Monitor] Respiratory 24 24 Rate Blood Pressure 118/61 104/65 109/67 O2 Sat by Pulse 97 97 Oximetry 12/24/20 12:10 Temperature Pulse Rate 110 H Pulse Rate [ From Monitor] Respiratory 4 L Rate Blood Pressure 109/67 O2 Sat by Pulse 97 Oximetry - General Appearance General appearance: well-developed, intubated EENT: ATNC Neck: no JVD, no thyromegaly, no carotid bruit, supple Respiratory: Present: Clear to Ascultation Cardiology: regular, normal heart rate Gastrointestinal: other (Midline incision noted.) Integumentary: other (No edema) - Lab 12/24/20 04:30 12/24/20 04:30 Most recent lab results ABG pH 7.404 (7.320-7.450) 12/24/20 04:19 ABG pCO2 51.0 mm Hg 12/20/20 21:30 ABG pO2 104.4 mm Hg (80.0-90.0) H 12/20/20 21:30 ABG HCO3 25.3 mmol/L (20.0-26.0) 12/20/20 21:30 ABG O2 Saturation 96.9 (0-100) 12/24/20 04:19 Calcium 6.8 mg/dL (8.4-10.2) L 12/24/20 04:30 Phosphorus 4.10 mg/dL (2.5-4.5) 12/24/20 04:30 Magnesium 3.00 mg/dL (1.7-2.3) H 12/24/20 04:30 Urine Creatinine 78.1 mg/dL (0.1-20.0) H 12/23/20 12:15 Urine Sodium 13 mmol/L 12/23/20 12:15 Medications & Allergies - Medications Allergies/Adverse Reactions: Allergies Iodinated Contrast Media Adverse Reaction (Verified 09/04/18 14:20) Unknown Home Medications: Home Medications Medication Instructions Recorded Confirmed Last Taken Type Aspirin 81 mg PO DAILY #30 tab.chew 09/08/18 09/12/20 03/31/20 09:28 Rx AtorvaSTATin [Lipitor] 80 mg PO QHS tablet 05/08/19 09/12/20 03/28/20 Rx Albuterol Sulfate [Proventil Hfa] 13.4 gm IH Q6H #1 hfa.aer.ad 04/01/20 09/12/20 Unknown Rx Clopidogrel [Plavix] 75 mg PO DAILY #30 tablet 04/01/20 09/12/20 Unknown Rx Gabapentin 300 mg PO BID@0700,1800 30 Days 04/01/20 09/12/20 Unknown Rx capsule Gabapentin 600 mg PO QHS 30 Days capsule 04/01/20 09/12/20 Unknown Rx Metoprolol [Lopressor TAB] 25 mg PO BID #60 tablet 04/01/20 09/12/20 Unknown Rx [place]-3/Dha/Epa/Fish Oil [[place] 3 1 each PO BID #60 capsule 04/01/20 09/12/20 Unknown Rx 500 Softgel] Tiotropium [place]cher [Spiriva] 2 puff IH DAILY #30 cap.w.dev 04/01/20 09/12/20 U nknown Rx Ubidecarenone [Co Q-10] 10 mg PO BID #60 tab 04/01/20 09/12/20 03/29/20 Rx cilostazoL [Pletal] 50 mg PO BID 30 Days tablet 04/01/20 09/12/20 Unknown Rx oxyCODONE /ACETAMINOPHEN [Percocet 2 tab PO Q6H PRN tablet 04/01/20 09/12/20 Unknown Rx 5/325 mg] Phosphorus #1 [K-Phos Neutral] 250 mg PO QID 2 Days #8 tablet 09/14/20 Unknown Rx Active Medications: Generic Name Dose Route Start Last Admin Trade Name Freq PRN Reason Stop Dose Admin Acetaminophen 650 mg 12/21/20 11:51 12/24/20 00:01 Acetaminophen 650 Mg Rect Supp MT 650 mg Q4H PRN Administration TEMP >/=100.4 Dextrose 50 ml 12/24/20 10:49 Dextrose 50% In Water (25gm) 50 Ml Syringe IV Q30MIN PRN Hypoglycemia Protocol Famotidine 20 mg 12/20/20 22:00 12/24/20 11:47 Famotidine 20 Mg/2 Ml Inj IV 20 mg BID ASCENCION Administration Fentanyl 50 mcg 12/20/20 21:58 12/21/20 03:46 Fentanyl 100 Mcg/2 Ml Inj IV 50 mcg Q10MIN PRN Administration ANALGESIA Hydrophilic Ointment 1 applic 12/20/20 21:58 Lip Therapy Vaseline TP Q2HR PRN Dry Lips Fentanyl Citrate 2,000 mcg in 100 mls @ 6.01 mls/hr 12/20/20 22:00 12/24/20 10:41 Fentanyl Drip Premix IV 5 mcg/kg/hr TITR ASCENCION 30.051 mls/hr Administration Protocol 1 MCG/KG/HR Propofol 1,000 mg in 100 mls @ 3.606 mls/hr 12/20/20 22:00 12/24/20 11:40 Diprivan 10 Mg/Ml IV 40 mcg/kg/min TITR ASCENCION 28.848 mls/hr Administration Protocol 5 MCG/KG/MIN NORepinephrine/NS 8 MG-250 ML 8 mg in 250 mls @ 3.75 mls/hr 12/21/20 09:00 12/24/20 08:46 Norepinephrine/Ns 8 Mg-250 Ml (Double Conc) IV 26 mcg/min TITRATE ASCENCION 48.75 mls/hr Titration Protocol 2 MCG/MIN Fluconazole 200 mls @ 100 mls/hr 12/23/20 13:00 12/23/20 18:26 Diflucan IV 100 mls/hr Q24H ASCENCION Administration Protocol Dextrose 1,000 mls @ 100 mls/hr 12/23/20 13:00 12/24/20 06:20 D5w IV 100 mls/hr DIRECT ASCENCION Administration Piperacillin Sod/Tazobactam Sod 4.5 gm in 100 mls @ 200 mls/hr 12/23/20 15:00 12/24/20 06:20 Zosyn/Ns 4.5gm/100ml IV 200 mls/hr Q8H ASCENCION Administration Protocol Vasopressin 20 unit/ Sodium 101 mls @ 9.09 mls/hr 12/24/20 09:00 Chloride IV TITR ASCENCION Protocol 0.03 UNITS/MIN Lactated Ringer's 1,000 mls @ 999 mls/hr 12/24/20 11:25 12/24/20 11:46 Lactated Ringers IV 12/24/20 12:25 999 mls/hr BOLUS ONE Administration Lactated Ringer's 1,000 mls @ 999 mls/hr 12/24/20 11:26 Lactated Ringers IV 12/24/20 12:26 BOLUS ONE Lactated Ringer's 1,000 mls @ 999 mls/hr 12/24/20 11:26 Lactated Ringers IV 12/24/20 12:26 BOLUS ONE Insulin Human Regular 0 units 12/24/20 11:00 Insulin Regular, Human 100 Units/1 Ml SUB-Q Q6H [facility] Protocol Multi-Ingred Cream/Lotion/Oil/Oint 1 applic 12/20/20 21:58 Mineral Oil/Petrolatum, White Ophth Oint 3.5 Gm OU Q4HR PRN Dry Eye(s) Senna/Docusate Sodium 1 tab 12/20/20 22:00 12/24/20 11:43 Sennosides/Docusate Sodium 8.6/50 Mg Tab FEEDTUBE Not Given BID ASCENCION Sodium Chloride 10 ml 12/20/20 22:00 12/24/20 11:44 Sodium Chloride 0.9% 10 Ml Flush Syringe IV 10 ml BID ASCENCION Administration Sodium Chloride 10 ml 12/20/20 16:42 Sodium Chloride 0.9% 10 Ml Flush Syringe IV PRN PRN LINE FLUSH
[2020-12-24] MEDS: INSULIN REGULAR, HUMAN 100 UNITS/1 ML SUB-Q SCH ×2 (12:49→18:08)
[2020-12-24] MEDS: FLUCONAZOLE 400 MG 200 ML IV SCH (14:00)
--- NOTE | 2020-12-24 15:07 | Progress Note ---
Assessment and Plan 60 yo M POD#3 s/p ex lap and small bowel resection POD #1 s/p Abdominal exploration, Small bowel resection, Peritoneal lavage, ABThera wound VAC placement 1. Incarcerated ventral hernias 2. gangrenous small bowel 2/2 #1 3. Septic shock 2/2 #2 4. Morbid obesity 5. Open abdomen status post previous exploratory laparotomy 6. protein calorie malnutrition Plan 1. neuro - continue deep sedation with propofol and fent gtt until definitive abdominal closure is performed 2. CV - tachycardia resolved. On levophed at 26mcg, wean as tolerated. Corona in place. DVT ppx. CBC in am - WBC trending down 3. Resp - maintain on vent until definitive abdominal closure. Crit care on board 4. GI - NPO, start TPN - caretaker consulted, GI Ppx. NGT to LIWS. Maintain abthera to -125mmHg continuous suction 5. - haley for accurate I/Os 6. Endo - strict glucose control 7. ID - abx per ID 8. FEN - BMP daily. replace lytes as need Guarded prognosis. Plan to return to OR possibly Saturday. Please call with questions. Subjective Date of service: 12/24/20 Narrative: Pt seen and examined. No acute changes. On levophed. Febrile with Tm 102.5. On vent with open abdomen. Objective Vital Signs - 12hr 12/24/20 12/24/20 12/24/20 03:15 03:19 03:30 Temperature 102.5 F H Pulse Rate 94 H 92 H Pulse Rate [ From Monitor] Respiratory 24 24 Rate Blood Pressure 104/64 105/64 O2 Sat by Pulse 100 100 Oximetry 12/24/20 12/24/20 12/24/20 03:45 04:00 04:03 Temperature Pulse Rate 92 H 93 H 92 H Pulse Rate [ 92 H From Monitor] Respiratory 24 24 Rate Blood Pressure 102/61 99/61 88/53 O2 Sat by Pulse 100 100 100 Oximetry 12/24/20 12/24/20 12/24/20 04:15 04:30 04:45 Temperature Pulse Rate 92 H 92 H 92 H Pulse Rate [ From Monitor] Respiratory 24 24 24 Rate Blood Pressure 100/62 104/61 103/66 O2 Sat by Pulse 100 100 100 Oximetry 12/24/20 12/24/20 12/24/20 05:00 05:15 05:30 Temperature Pulse Rate 92 H 92 H 92 H Pulse Rate [ From Monitor] Respiratory 24 24 24 Rate Blood Pressure 108/67 106/64 92/53 O2 Sat by Pulse 100 100 100 Oximetry 12/24/20 12/24/20 12/24/20 05:40 05:50 06:00 Temperature Pulse Rate 111 H 112 H 110 H Pulse Rate [ From Monitor] Respiratory 24 25 H 24 Rate Blood Pressure 129/75 112/65 110/69 O2 Sat by Pulse 100 100 100 Oximetry 12/24/20 12/24/20 12/24/20 06:10 06:20 06:31 Temperature Pulse Rate 110 H 110 H 112 H Pulse Rate [ From Monitor] Respiratory 24 24 23 Rate Blood Pressure 114/64 108/68 108/66 O2 Sat by Pulse 100 100 100 Oximetry 12/24/20 12/24/20 12/24/20 06:40 06:50 07:00 Temperature Pulse Rate 112 H 112 H 111 H Pulse Rate [ From Monitor] Respiratory 24 23 24 Rate Blood Pressure 111/66 111/70 121/76 O2 Sat by Pulse 89 89 99 Oximetry 12/24/20 12/24/20 12/24/20 07:10 07:20 07:31 Temperature Pulse Rate 111 H 111 H 110 H Pulse Rate [ From Monitor] Respiratory 24 24 24 Rate Blood Pressure 113/71 115/68 107/64 O2 Sat by Pulse 100 100 87 Oximetry 12/24/20 12/24/20 12/24/20 07:41 07:50 08:00 Temperature 100.4 F H Pulse Rate 113 H 112 H 111 H Pulse Rate [ 108 H From Monitor] Respiratory 15 14 23 Rate Blood Pressure 106/67 176/151 103/58 O2 Sat by Pulse 99 100 100 Oximetry 12/24/20 12/24/20 12/24/20 08:11 08:13 08:15 Temperature Pulse Rate 111 H 112 H 111 H Pulse Rate [ From Monitor] Respiratory 24 24 Rate Blood Pressure 103/58 93/58 103/58 O2 Sat by Pulse 100 100 100 Oximetry 12/24/20 12/24/20 12/24/20 08:31 08:41 08:51 Temperature Pulse Rate 111 H 109 H 109 H Pulse Rate [ From Monitor] Respiratory 23 24 24 Rate Blood Pressure 103/58 103/58 115/69 O2 Sat by Pulse 87 99 98 Oximetry 12/24/20 12/24/20 12/24/20 09:00 09:15 09:21 Temperature Pulse Rate 109 H 108 H 109 H Pulse Rate [ From Monitor] Respiratory 24 24 24 Rate Blood Pressure 109/64 119/69 119/69 O2 Sat by Pulse 97 98 98 Oximetry 12/24/20 12/24/20 12/24/20 09:30 09:40 09:50 Temperature Pulse Rate 110 H 110 H 110 H Pulse Rate [ From Monitor] Respiratory 24 24 24 Rate Blood Pressure 101/69 101/69 103/65 O2 Sat by Pulse 97 96 96 Oximetry 12/24/20 12/24/20 12/24/20 10:00 10:10 10:20 Temperature Pulse Rate 110 H 108 H 111 H Pulse Rate [ From Monitor] Respiratory 24 24 24 Rate Blood Pressure 110/64 103/65 95/58 O2 Sat by Pulse 95 96 95 Oximetry 12/24/20 12/24/20 12/24/20 10:30 10:40 10:50 Temperature Pulse Rate 110 H 111 H 110 H Pulse Rate [ From Monitor] Respiratory 16 17 22 Rate Blood Pressure 103/64 103/64 103/67 O2 Sat by Pulse 95 96 96 Oximetry 12/24/20 12/24/20 12/24/20 11:00 11:10 11:16 Temperature Pulse Rate 111 H 109 H 107 H Pulse Rate [ From Monitor] Respiratory 24 23 20 Rate Blood Pressure 105/64 105/64 81/45 O2 Sat by Pulse 95 95 96 Oximetry 12/24/20 12/24/20 12/24/20 11:20 11:30 11:40 Temperature Pulse Rate 108 H 123 H 116 H Pulse Rate [ From Monitor] Respiratory 24 12 25 H Rate Blood Pressure 81/45 81/45 108/62 O2 Sat by Pulse 98 97 96 Oximetry 12/24/20 12/24/20 12/24/20 11:42 11:50 12:00 Temperature 100.4 F H Pulse Rate 108 H 112 H 108 H Pulse Rate [ 108 H From Monitor] Respiratory 24 24 Rate Blood Pressure 118/61 104/65 109/67 O2 Sat by Pulse 97 97 Oximetry 12/24/20 12/24/20 12/24/20 12:10 12:15 12:30 Temperature Pulse Rate 110 H 109 H 109 H Pulse Rate [ From Monitor] Respiratory 4 L 8 L 23 Rate Blood Pressure 109/67 113/66 111/62 O2 Sat by Pulse 97 95 Oximetry 12/24/20 12/24/20 12/24/20 12:45 13:00 13:15 Temperature Pulse Rate 109 H 110 H 109 H Pulse Rate [ From Monitor] Respiratory 24 16 22 Rate Blood Pressure 111/68 121/69 111/65 O2 Sat by Pulse 95 94 Oximetry 12/24/20 12/24/20 12/24/20 13:30 13:45 14:00 Temperature Pulse Rate 109 H 109 H 110 H Pulse Rate [ From Monitor] Respiratory 24 24 24 Rate Blood Pressure 120/70 116/67 118/69 O2 Sat by Pulse Oximetry 12/24/20 12/24/20 12/24/20 14:15 14:30 14:45 Temperature Pulse Rate 85 83 82 Pulse Rate [ From Monitor] Respiratory 24 24 24 Rate Blood Pressure 104/58 108/60 112/57 O2 Sat by Pulse 93 96 94 Oximetry 12/24/20 15:00 Temperature Pulse Rate 81 Pulse Rate [ From Monitor] Respiratory 24 Rate Blood Pressure 112/63 O2 Sat by Pulse 94 Oximetry - General physical appearance Narrative Exam: Gen.: Intubated and sedated on the ventilator. ENT: NG tube with bilious output. ET tube in place. Trachea midline. No lymphadenopathy. No scleral icterus or conjunctival pallor CV: S1, S2 present Respiratory: No audible wheezes Abdomen: Soft, nondistended, nontender. ABThera VAC in place draining light serosanguineous fluid, there is a good seal and no leak. Extremities: Generalized edema : Haley in place with clear yellow urine - Labs 12/24/20 04:30 12/24/20 04:30 Diabetes panel 12/24/20 Range/Units 04:30 Sodium 155 H (137-145) mmol/L Potassium 4.0 (3.6-5.0) mmol/L Chloride 116.1 H (98-107) mmol/L Carbon Dioxide 29 (22-30) mmol/L BUN 52 H (9-20) mg/dL Creatinine 1.5 H (0.8-1.3) mg/dL Glucose 175 H (75-100) mg/dL Calcium 6.8 L (8.4-10.2) mg/dL AST 40 (5-40) units/L ALT 17 (7-56) units/L Alkaline Phosphatase 53 (35-129) units/L Total Protein 5.7 L (6.3-8.2) g/dL Albumin 1.8 L (3.9-5) g/dL Calcium panel 12/24/20 Range/Units 04:30 Calcium 6.8 L (8.4-10.2) mg/dL Phosphorus 4.10 (2.5-4.5) mg/dL Albumin 1.8 L (3.9-5) g/dL Pituitary panel 12/24/20 Range/Units 04:30 Sodium 155 H (137-145) mmol/L Potassium 4.0 (3.6-5.0) mmol/L Chloride 116.1 H (98-107) mmol/L Carbon Dioxide 29 (22-30) mmol/L BUN 52 H (9-20) mg/dL Creatinine 1.5 H (0.8-1.3) mg/dL Glucose 175 H (75-100) mg/dL Calcium 6.8 L (8.4-10.2) mg/dL Adrenal panel 12/24/20 Range/Units 04:30 Sodium 155 H (137-145) mmol/L Potassium 4.0 (3.6-5.0) mmol/L Chloride 116.1 H (98-107) mmol/L Carbon Dioxide 29 (22-30) mmol/L BUN 52 H (9-20) mg/dL Creatinine 1.5 H (0.8-1.3) mg/dL Glucose 175 H (75-100) mg/dL Calcium 6.8 L (8.4-10.2) mg/dL Total Bilirubin 0.40 (0.1-1.2) mg/dL AST 40 (5-40) units/L ALT 17 (7-56) units/L Alkaline Phosphatase 53 (35-129) units/L Total Protein 5.7 L (6.3-8.2) g/dL Albumin 1.8 L (3.9-5) g/dL
--- NOTE | 2020-12-24 16:51 | Progress Note ---
Assessment and Plan Cultures: 12/20/2020 sputum culture: In process 12/20/2020 blood culture: No growth 12/20/2020 urine culture: Usual skin giorgio A/P: 60-year-old male with obesity, hypertension, tobacco abuse, coronary artery disease, admitted to the hospital on 12/20/2020 with: #Septic shock: Secondary to intra-abdominal source, peritonitis. Patient with necrotic bowel secondary to incarcerated ventral hernia. Status post exploratory laparotomy, extensive adhesiolysis, small bowel resection and peritoneal lavage along with ABThera VAC placement on 12/20/2020. #JONI: Renally dose antibiotics. #Morbid obesity Recs: -Given rising creatinine, Zosyn dose decreased -continue Fluconazole 400 mg daily, if creatinine rises further, decrease dose to 200 mg daily -Vancomycin not needed -Continue supportive care. Noted plans for retrip to [place] Priscilla Marie MD [facility] O: [phone] F: [phone] Subjective Date of service: 12/24/20 Interval history: Remains febrile with T-max 100.6 14.3 which is slightly improved. Cultures remain negative. Objective - Exam Narrative Exam: Physical Exam: Constitutional: sedated, intubated, on the vent Head, Ears, Nose: Normocephalic, atraumatic. External ears, nose normal Eyes: Conjunctivae/corneas clear. No icterus. No ptosis. Neck: intubated Oral: intubated Cardiovascular: S1, S2 + Respiratory: AE fair bilaterally and equal GI: ABThera VAC present, bowel sounds absent Musculoskeletal: No pedal edema, no cyanosis. Skin: No rash or abscess Hem/Lymphatic: No palpable cervical or supraclavicular nodes. No lymphangitis Psych: no agitation Neurological: sedated, intubated, on the vent, exam limited - Constitutional Vitals: Vital Signs Temp Pulse Resp BP Pulse Ox 100.6 F H 84 24 113/62 94 12/24/20 16:00 12/24/20 16:30 12/24/20 16:30 12/24/20 16:30 12/24/20 16:30 Temperature -Last 24 Hours Temperature 100.6 F Temperature 100.4 F Temperature 100.4 F Temperature 102.5 F Temperature 100.9 F Temperature 99.1 F Temperature 97.2 F - Labs CBC & Chem 7: 12/24/20 04:30 12/24/20 04:30 Labs: Abnormal lab results 12/23/20 12/24/20 12/24/20 Range/Units 23:15 04:19 04:30 WBC 18.3 H (4.5-11.0) K/mm3 RDW 16.5 H (13.2-15.2) % ABG Sodium 149.7 H (136.0-145.0) mmol/L ABG Chloride 116.0 H (98-107) mmol/L ABG Glucose 180 H (65-95) mg/dL Sodium (137-145) mmol/L Chloride (98-107) mmol/L BUN (9-20) mg/dL Creatinine (0.8-1.3) mg/dL Glucose (75-100) mg/dL POC Glucose 132 H (70-105) mg/dL Calcium (8.4-10.2) mg/dL Magnesium (1.7-2.3) mg/dL Total Protein (6.3-8.2) g/dL Albumin (3.9-5) g/dL Arterial Blood Glucose 180 H (65-95) mg/dL Arterial Blood Ionized Calcium 3.7 L (4.6-5.3) mg/dL 12/24/20 12/24/20 12/24/20 Range/Units 04:30 05:24 11:21 WBC (4.5-11.0) K/mm3 RDW (13.2-15.2) % ABG Sodium (136.0-145.0) mmol/L ABG Chloride (98-107) mmol/L ABG Glucose (65-95) mg/dL Sodium 155 H (137-145) mmol/L Chloride 116.1 H (98-107) mmol/L BUN 52 H (9-20) mg/dL Creatinine 1.5 H (0.8-1.3) mg/dL Glucose 175 H (75-100) mg/dL POC Glucose 153 H 154 H (70-105) mg/dL Calcium 6.8 L (8.4-10.2) mg/dL Magnesium 3.00 H (1.7-2.3) mg/dL Total Protein 5.7 L (6.3-8.2) g/dL Albumin 1.8 L (3.9-5) g/dL Arterial Blood Glucose (65-95) mg/dL Arterial Blood Ionized Calcium (4.6-5.3) mg/dL
[2020-12-24] MEDS ORDERED: TOTAL PARENTERAL NUTRITION 2,400 ML IV SCH (20:00)
[2020-12-25] MEDS: PIPERACIL/TAZOBACTA 4.5/NS 100 4.5 GM/100 ML VIAL IV SCH ×4 (00:48→22:07)
[2020-12-25] MEDS: fentaNYL DRIP Premix 2,000 MCG/100 ML BAG IV SCH ×7 (01:36→21:32)
[2020-12-25] MEDS: NORepinephrine/NS 8 MG-250 ML 8 MG/250 ML INFUS..BTL IV SCH ×3 (04:30→22:28)
[2020-12-25 07:46] LABS: Hematocrit 38.6 % (35.5-45.6); Mean Corpuscular HGB Conc 31 % (32-34); Mean Corpuscular Volume 88 fl (84-94); Platelet Count 194 K/mm3 (140-440); Red Blood Count 4.37 M/mm3 (3.65-5.03)
[2020-12-25 07:55] LABS: Calcium 6.9 mg/dL (8.4-10.2)
[2020-12-25] MEDS ORDERED: CALCIUM GLUCONATE 1,000 MG in SODIUM CHLORIDE 0.9% 100 ML IV ONE (07:58)
[2020-12-25] MEDS: SENNOSIDES/DOCUSATE SODIUM 8.6/50 MG TAB FEEDTUBE SCH ×3 (08:24→21:34)
[2020-12-25] MEDS: INSULIN REGULAR, HUMAN 100 UNITS/1 ML SUB-Q SCH ×4 (08:25→18:40)
[2020-12-25] MEDS: FAMOTIDINE 20 MG/2 ML INJ IV SCH ×2 (09:47→21:34)
--- NOTE | 2020-12-25 10:23 | Progress Note ---
Assessment and Plan 60 y/o male with abdominal catastrophe, s/p ex-lap with open abdomen, ventilated for pain control and support. 12/25/20: Down to 14 on Levo now. Fluid appears to have helped. Renal following so will defer further bolus types to them but would recommend more fluid. Continue sedation at current level. TPN for nutrition. Plans for return to OR on Saturday. Continue all supportive measures. 12/24/20: Adequate sedation to maintain RASS of -4. BP support as needed with pressors. Will give more fluid today. Renal function improving. Agree with D5W but Na will be corrected in TPN as well. TPN per nutrition. Supportive care. 1. Adequate sedation to RASS of -4 2 Support BP with meds as needed 3. Aggressive hydration 4. Follow up surgery recs. cct 31 minutes. Subjective Date of service: 12/25/20 Interval history: No acute events. Sedated. Art Line in place. Reviewed notes from consultants on yesterday. Pulm status is stable. Continues to be febrile but curve does appear to be better. Objective Vital Signs - 12hr 12/24/20 12/24/20 12/24/20 22:16 22:30 22:45 Temperature Pulse Rate 108 H 115 H 112 H Pulse Rate [ From Monitor] Respiratory 13 22 24 Rate Blood Pressure 123/72 123/72 118/54 O2 Sat by Pulse 97 92 93 Oximetry 12/24/20 12/24/20 12/24/20 23:00 23:15 23:30 Temperature Pulse Rate 109 H 86 90 Pulse Rate [ From Monitor] Respiratory 15 24 24 Rate Blood Pressure 118/54 112/59 116/66 O2 Sat by Pulse 96 98 94 Oximetry 12/24/20 12/25/20 12/25/20 23:46 00:00 00:11 Temperature 100.4 F H Pulse Rate 84 86 88 Pulse Rate [ 84 From Monitor] Respiratory 24 19 Rate Blood Pressure 138/74 138/74 108/53 O2 Sat by Pulse 96 94 97 Oximetry 12/25/20 12/25/20 12/25/20 00:15 00:30 00:45 Temperature Pulse Rate 85 84 86 Pulse Rate [ From Monitor] Respiratory 24 11 L 23 Rate Blood Pressure 123/68 124/76 122/71 O2 Sat by Pulse 94 94 94 Oximetry 12/25/20 12/25/20 12/25/20 01:00 01:16 01:30 Temperature Pulse Rate 83 112 H 105 H Pulse Rate [ From Monitor] Respiratory 0 L 12 19 Rate Blood Pressure 122/71 122/71 80/51 O2 Sat by Pulse 94 95 Oximetry 12/25/20 12/25/20 12/25/20 01:45 02:00 02:15 Temperature Pulse Rate 87 85 84 Pulse Rate [ From Monitor] Respiratory 24 21 9 L Rate Blood Pressure 157/84 130/70 129/75 O2 Sat by Pulse 95 95 94 Oximetry 12/25/20 12/25/20 12/25/20 02:30 02:45 03:00 Temperature Pulse Rate 111 H 111 H 113 H Pulse Rate [ From Monitor] Respiratory 24 8 L 18 Rate Blood Pressure 135/77 127/82 124/74 O2 Sat by Pulse 93 94 93 Oximetry 12/25/20 12/25/20 12/25/20 03:15 03:25 03:30 Temperature 100.4 F H Pulse Rate 114 H 89 Pulse Rate [ From Monitor] Respiratory 15 7 L Rate Blood Pressure 128/81 127/73 O2 Sat by Pulse 93 94 Oximetry 12/25/20 12/25/20 12/25/20 03:46 04:00 04:15 Temperature Pulse Rate 90 87 88 Pulse Rate [ 90 From Monitor] Respiratory 17 24 24 Rate Blood Pressure 93/73 131/71 128/73 O2 Sat by Pulse 92 93 94 Oximetry 12/25/20 12/25/20 12/25/20 04:30 04:35 04:46 Temperature Pulse Rate 89 91 H 93 H Pulse Rate [ From Monitor] Respiratory 21 20 Rate Blood Pressure 124/75 124/75 124/75 O2 Sat by Pulse 94 96 Oximetry 12/25/20 12/25/20 12/25/20 05:00 05:15 05:30 Temperature Pulse Rate 94 H 93 H 92 H Pulse Rate [ From Monitor] Respiratory 9 L 8 L 19 Rate Blood Pressure 120/75 134/77 137/86 O2 Sat by Pulse 94 98 Oximetry 12/25/20 12/25/20 12/25/20 05:46 06:00 06:15 Temperature Pulse Rate 95 H 96 H 96 H Pulse Rate [ From Monitor] Respiratory 23 19 21 Rate Blood Pressure 134/77 127/65 127/70 O2 Sat by Pulse 93 94 93 Oximetry 12/25/20 12/25/2021 06:30 06:45 07:00 Temperature Pulse Rate 101 H 95 H 95 H Pulse Rate [ From Monitor] Respiratory 25 H 24 24 Rate Blood Pressure 127/70 123/72 127/70 O2 Sat by Pulse 91 95 Oximetry 12/25/20 12/25/20 12/25/20 07:15 07:30 07:46 Temperature Pulse Rate 98 H 96 H 100 H Pulse Rate [ From Monitor] Respiratory 25 H 24 24 Rate Blood Pressure 123/72 125/69 124/73 O2 Sat by Pulse 92 94 94 Oximetry 12/25/20 12/25/20 12/25/20 07:53 07:57 08:00 Temperature 100.4 F H 100.4 F H Pulse Rate 97 H 97 H Pulse Rate [ 117 H From Monitor] Respiratory 24 Rate Blood Pressure 113/68 123/69 O2 Sat by Pulse 95 93 Oximetry 12/25/20 12/25/20 08:15 08:30 Temperature Pulse Rate 96 H 100 H Pulse Rate [ From Monitor] Respiratory 21 17 Rate Blood Pressure 133/57 127/70 O2 Sat by Pulse 93 93 Oximetry CBC and BMP: 12/25/20 07:00 12/25/20 07:00 ABG, PT/INR, D-dimer: ABG ABG pH 7.410 (7.320-7.450) 12/25/20 04:00 POC ABG pCO2 45.4 mmHg (32.0-48.0) 12/25/20 04:00 ABG pCO2 51.0 mm Hg 12/20/20 21:30 POC ABG pO2 88.7 mmHg (83-108) 12/25/20 04:00 ABG pO2 104.4 mm Hg (80.0-90.0) H 12/20/20 21:30 POC ABG HCO3 28.1 12/25/20 04:00 ABG O2 Saturation 96.5 (0-100) 12/25/20 04:00 Abnormal lab findings: Abnormal Labs 12/20/20 12/20/20 12/20/20 13:58 13:58 13:58 WBC 41.1 H* RBC 5.59 H Hgb 16.2 H Hct 47.7 H MCHC RDW 15.5 H Plt Count 486 H Seg Neuts % (Manual) Lymphocytes % (Manual) Seg Neutrophils # Man Lymphocytes # (Manual) Monocytes # (Manual) APTT ABG pH POC ABG pO2 ABG pO2 ABG Sodium ABG Chloride ABG Glucose Carboxyhemoglobin Sodium 130 L Chloride 80.7 L BUN 37 H Creatinine Glucose 101 H POC Glucose Lactic Acid 3.20 H* Calcium Ionized Calcium Magnesium Alkaline Phosphatase 142 H Total Protein 6.2 L Albumin 2.2 L Arterial Blood Glucose Arterial Blood Ionized Calcium Urine Creatinine 12/20/20 12/20/20 12/20/20 13:58 20:35 21:30 WBC RBC Hgb Hct MCHC RDW Plt Count Seg Neuts % (Manual) Lymphocytes % (Manual) Seg Neutrophils # Man Lymphocytes # (Manual) Monocytes # (Manual) APTT 49.4 H ABG pH 7.313 L POC ABG pO2 ABG pO2 104.4 H ABG Sodium ABG Chloride ABG Glucose Carboxyhemoglobin Sodium Chloride BUN Creatinine Glucose POC Glucose 122 H Lactic Acid Calcium Ionized Calcium Magnesium Alkaline Phosphatase Total Protein Albumin Arterial Blood Glucose Arterial Blood Ionized Calcium Urine Creatinine 12/21/20 12/21/20 12/21/20 03:06 08:14 08:14 WBC 23.9 H RBC Hgb Hct MCHC RDW 15.7 H Plt Count Seg Neuts % (Manual) 91.0 H Lymphocytes % (Manual) 3.0 L Seg Neutrophils # Man 21.7 H Lymphocytes # (Manual) 0.7 L Monocytes # (Manual) 1.4 H APTT ABG pH 7.464 H POC ABG pO2 202.9 H ABG pO2 ABG Sodium 133.7 L ABG Chloride ABG Glucose 122 H Carboxyhemoglobin Sodium Chloride BUN 46 H Creatinine Glucose 103 H POC Glucose Lactic Acid Calcium 6.6 L D Ionized Calcium Magnesium Alkaline Phosphatase Total Protein 5.4 L Albumin 2.3 L Arterial Blood Glucose 122 H Arterial Blood Ionized Calcium 3.5 L Urine Creatinine 12/21/20 12/21/20 12/22/20 17:18 21:28 04:45 WBC 22.9 H RBC Hgb Hct MCHC RDW 15.7 H Plt Count Seg Neuts % (Manual) Lymphocytes % (Manual) Seg Neutrophils # Man Lymphocytes # (Manual) Monocytes # (Manual) APTT ABG pH POC ABG pO2 ABG pO2 ABG Sodium ABG Chloride ABG Glucose Carboxyhemoglobin Sodium Chloride BUN Creatinine Glucose POC Glucose 108 H Lactic Acid Calcium Ionized Calcium 4.1 L Magnesium Alkaline Phosphatase Total Protein Albumin Arterial Blood Glucose Arterial Blood Ionized Calcium Urine Creatinine 12/22/20 12/22/20 12/22/20 04:45 05:00 11:38 WBC RBC Hgb Hct MCHC RDW Plt Count Seg Neuts % (Manual) Lymphocytes % (Manual) Seg Neutrophils # Man Lymphocytes # (Manual) Monocytes # (Manual) APTT ABG pH 7.462 H POC ABG pO2 ABG pO2 ABG Sodium ABG Chloride ABG Glucose 118 H Carboxyhemoglobin Sodium 146 H Chloride BUN 45 H Creatinine Glucose 116 H POC Glucose 115 H Lactic Acid Calcium 6.9 L Ionized Calcium Magnesium Alkaline Phosphatase Total Protein Albumin Arterial Blood Glucose 118 H Arterial Blood Ionized Calcium 3.8 L Urine Creatinine 12/22/20 12/23/20 12/23/20 23:26 04:43 04:45 WBC 22.2 H RBC Hgb Hct MCHC RDW 16.1 H Plt Count Seg Neuts % (Manual) Lymphocytes % (Manual) Seg Neutrophils # Man Lymphocytes # (Manual) Monocytes # (Manual) APTT ABG pH POC ABG pO2 ABG pO2 ABG Sodium 147.4 H ABG Chloride 112.0 H ABG Glucose 130 H Carboxyhemoglobin 0.4 L Sodium Chloride BUN Creatinine Glucose POC Glucose 110 H Lactic Acid Calcium Ionized Calcium Magnesium Alkaline Phosphatase Total Protein Albumin Arterial Blood Glucose 130 H Arterial Blood Ionized Calcium 3.8 L Urine Creatinine 12/23/20 12/23/20 12/23/20 04:45 05:17 11:22 WBC RBC Hgb Hct MCHC RDW Plt Count Seg Neuts % (Manual) Lymphocytes % (Manual) Seg Neutrophils # Man Lymphocytes # (Manual) Monocytes # (Manual) APTT ABG pH POC ABG pO2 ABG pO2 ABG Sodium ABG Chloride ABG Glucose Carboxyhemoglobin Sodium 154 H D Chloride 110.9 H BUN 54 H Creatinine 1.8 H Glucose 115 H POC Glucose 116 H 130 H Lactic Acid Calcium 7.0 L Ionized Calcium Magnesium Alkaline Phosphatase Total Protein Albumin Arterial Blood Glucose Arterial Blood Ionized Calcium Urine Creatinine 12/23/20 12/23/20 12/23/20 12:15 12:15 23:15 WBC RBC Hgb Hct MCHC RDW Plt Count Seg Neuts % (Manual) Lymphocytes % (Manual) Seg Neutrophils # Man Lymphocytes # (Manual) Monocytes # (Manual) APTT ABG pH POC ABG pO2 ABG pO2 ABG Sodium ABG Chloride ABG Glucose Carboxyhemoglobin Sodium 154 H Chloride BUN Creatinine 1.5 H Glucose POC Glucose 132 H Lactic Acid Calcium Ionized Calcium Magnesium Alkaline Phosphatase Total Protein Albumin Arterial Blood Glucose Arterial Blood Ionized Calcium Urine Creatinine 78.1 H 12/24/20 12/24/20 12/24/20 04:19 04:30 04:30 WBC 18.3 H RBC Hgb Hct MCHC RDW 16.5 H Plt Count Seg Neuts % (Manual) Lymphocytes % (Manual) Seg Neutrophils # Man Lymphocytes # (Manual) Monocytes # (Manual) APTT ABG pH POC ABG pO2 ABG pO2 ABG Sodium 149.7 H ABG Chloride 116.0 H ABG Glucose 180 H Carboxyhemoglobin Sodium 155 H Chloride 116.1 H BUN 52 H Creatinine 1.5 H Glucose 175 H POC Glucose Lactic Acid Calcium 6.8 L Ionized Calcium Magnesium 3.00 H Alkaline Phosphatase Total Protein 5.7 L Albumin 1.8 L Arterial Blood Glucose 180 H Arterial Blood Ionized Calcium 3.7 L Urine Creatinine 12/24/20 12/24/20 12/24/20 05:24 11:21 18:05 WBC RBC Hgb Hct MCHC RDW Plt Count Seg Neuts % (Manual) Lymphocytes % (Manual) Seg Neutrophils # Man Lymphocytes # (Manual) Monocytes # (Manual) APTT ABG pH POC ABG pO2 ABG pO2 ABG Sodium ABG Chloride ABG Glucose Carboxyhemoglobin Sodium Chloride BUN Creatinine Glucose POC Glucose 153 H 154 H 133 H Lactic Acid Calcium Ionized Calcium Magnesium Alkaline Phosphatase Total Protein Albumin Arterial Blood Glucose Arterial Blood Ionized Calcium Urine Creatinine 12/25/20 12/25/20 12/25/20 04:00 07:00 07:00 WBC 17.6 H RBC Hgb Hct MCHC 31 L RDW 16.0 H Plt Count Seg Neuts % (Manual) Lymphocytes % (Manual) Seg Neutrophils # Man Lymphocytes # (Manual) Monocytes # (Manual) APTT ABG pH POC ABG pO2 ABG pO2 ABG Sodium 152.5 H ABG Chloride 119.0 H ABG Glucose 136 H Carboxyhemoglobin Sodium Chloride BUN Creatinine Glucose POC Glucose Lactic Acid Calcium Ionized Calcium Magnesium 2.70 H Alkaline Phosphatase Total Protein Albumin Arterial Blood Glucose 136 H Arterial Blood Ionized Calcium 3.7 L Urine Creatinine 12/25/20 07:00 WBC RBC Hgb Hct MCHC RDW Plt Count Seg Neuts % (Manual) Lymphocytes % (Manual) Seg Neutrophils # Man Lymphocytes # (Manual) Monocytes # (Manual) APTT ABG pH POC ABG pO2 ABG pO2 ABG Sodium ABG Chloride ABG Glucose Carboxyhemoglobin Sodium 156 H Chloride 118.0 H BUN 44 H Creatinine 1.7 H Glucose 126 H POC Glucose Lactic Acid Calcium 6.9 L Ionized Calcium Magnesium Alkaline Phosphatase Total Protein Albumin Arterial Blood Glucose Arterial Blood Ionized Calcium Urine Creatinine
--- NOTE | 2020-12-25 10:23 | Progress Note ---
<LILIYAMARGE SohaReagan - Last Filed: 12/25/20 11:09> Assessment and Plan Assessment and plan: This is a 60-year-old male with obesity, hypertension, nicotine dependence, PVD s/p stent placement on dual antiplatelet therapy, hyperlipidemia, OA, GERD, ventral hernia and small bowel obstruction who was admitted with small bowel obstruction and peritonitis Septic Shock, POA (presented with leukocytosis, tachycardia, tachypnea,febrile and evidence of peritonitis) COVID-19 PUI, ruled out Small bowel obstruction with peritonitis Ventral hernia Leukocytosis Hypernatremia Hypercholremia Hypocalcemia Acute Kidney Injury Obesity Hypertension Nicotine dependence CAD s/p stent placement Hyperlipidemia Osteoarthritis GERD -CCM, surgery, infectious disease, nephrology consulted, appreciate recommendations -12/20 CT abdomen/pelvis showed high-grade small bowel obstruction related to severe complex ventral abdominal wall hernias, progressed in appearance from prior exam from 09/12/2020 without evidence of pneumonitis or pneumoperitoneum, patchy bibasilar airspace disease concern for atypical infectious process/pneumonitis -12/20 s/p ex lap, extensive lysis of adhesions, small bowel resection (removal of 70 cm necrotic small bowel segment), peritoneal lavage and ABThera abdominal wound VAC placement -12/23 s/p abdominal exploration, small bowel resection, peritoneal lavage, ABThera wound VAC placement -IV abx per ID: Zosyn, fluconazole -NGT to LIWS -NPO for now, TPN -SSI, Accucheck q6 -Vasopressor support with levophed and vasopressin -MIVF per nephro -12/23 Fractional excretion of sodium calculated at 0.16 indicating prerenal state -COVID-19 PCR negative -On mechanical ventilation, wean as tolerated, VAP bundle -Sedated with propofol and analgesia with fentanyl drip -Trend CBC, BMP, Mg, Phos GI/DVT prophylaxis: PPI, SCDs to bilateral lower extremities while in bed, avoid chemical anticoagulation to cleared by surgery Disposition: ICU The high probability of a clinically significant, sudden or life threatening deterioration of the [multi] system(s) required my full and direct attention, intervention and personal management. The aggregate critical care time was [35] minutes. This time is in addition to time spent performing reported procedures but includes the following: [x] Data Review and interpretation [x] Patient assessment and monitoring of vital signs [x] Documentation [x] Medication orders and management History Interval history: This is a 60-year-old male with obesity, hypertension, nicotine dependence, PVD s/p stent placement on dual antiplatelet therapy, hyperlipidemia, OA, GERD, ventral hernia with SBO who presents to the emergency department on 12/20 with severe, diffuse, worsened with movement, slightly relieved with rest abdominal pain rated at 10/10 with decreased oral intake, nausea and multiple episodes of vomiting. Patient underwent a CT of his abdomen/pelvis and was found to have evidence of small bowel obstruction as well as clinical findings consistent with acute peritonitis. Patient was admitted to the hospital service with acute peritonitis and incarcerated ventral hernia with consults to [facility] and surgery. 12/21: Patient is status post ex lap, extensive lysis of adhesions, small bowel resection, peritoneal lavage and ABThera abdominal wound VAC placement by Dr. Tena and Dr. Brumfield on 12/20 with removal of a 70 cm segment of necrotic small bowel. Patient was intubated and sedated on propofol 4 at the time of my examination on Assist-control, rate of 24, PEEP of 6, tidal volume of 550 and FiO2 35%. Patient needed to be deeply sedated and there was a became hypotensive. Patient was started on patient for support with Levophed and received bolus of IVF. 12/22: Patient was febrile to 103 and vancomycin and Diflucan were added by [facility] and infectious disease was consulted and they increased Zosyn and stop vancomycin. Patient was given additional 1 L bolus today for CVP goal of 10-12. At the time of examination patient was on Levophed, propofol and fentanyl CMV tidal volume 500, rate of 24, PEEP of 6 and FiO2 65%. Plan for OR tomorrow 12/23: Patient Cr/BUN noted to be increased and nephrology was consulted. ID decreased the zosyn dose d/r renal function. Urine studies ordered. Phil Campbell placed today. LR boluses per [facility], TPN to be started. Fractional excretion of sodium calculated at 0.16 indicating prerenal state 12/24: Patient is status post abdominal exploration, small bowel resection of 4 to 5 cm segment of dusky small bowel, peritoneal lavage and ABThera wound VAC placement on 12/23 with surgery, leukocytosis and renal function is improving, worsening hypernatremia and hyperchloremia. Patient will be started on TPN today. We will place on SSI/Accu-Cheks every every 6 hours. Patient noted to be nearly maxed on Levophed and vasopressin was ordered. Remains sedated and on MV 12/25: Leukocytosis continues to improve, given Ca Gluconate today, Hypernatremia, Cr and hyperchorlemia slightly worsened today. Patient is sedated with propofol and fentanyl on CMV TV 500, Rate 24, Peep 6, FiO2 50%. He remains on levophed. OR Saturday. Hospitalist Physical - Constitutional Vitals: Temp Pulse Resp BP Pulse Ox 100.4 F H 100 H 17 127/70 93 12/25/20 08:00 12/25/20 08:30 12/25/20 08:30 12/25/20 08:30 12/25/20 08:30 General appearance: Present: mild distress, obese, other (sedated on mv) - EENT Eyes: Present: PERRL ENT: poor dentition - Neck Neck: Absent: masses or JVD, cervical LAD - Respiratory Respiratory effort: normal Respiratory: bilateral: diminished - Cardiovascular Rhythm: regular Heart Sounds: Present: S1 & S2. Absent: systolic murmur, diastolic murmur - Extremities Extremities: no ischemia, pulses intact, pulses symmetrical, No edema, normal temperature, normal color - Abdominal General gastrointestinal: soft, absent bowel sounds - Integumentary Integumentary: Present: warm, dry - Psychiatric Psychiatric: other (sedated) - Neurologic Neurologic: other (sedated) - Allied Health Allied health notes reviewed: nursing, OT, social work HEART Score - HEART Score Troponin: Troponin T < 0.010 ng/mL (0.00-0.029) 12/20/20 13:58 Results - Labs CBC & Chem 7: 12/25/20 07:00 12/25/20 07:00 Labs: Laboratory Last Values WBC 17.6 K/mm3 (4.5-11.0) H 12/25/20 07:00 RBC 4.37 M/mm3 (3.65-5.03) 12/25/20 07:00 Hgb 12.0 gm/dl (11.8-15.2) 12/25/20 07:00 Hct 38.6 % (35.5-45.6) 12/25/20 07:00 MCV 88 fl (84-94) 12/25/20 07:00 MCH 28 pg (28-32) 12/25/20 07:00 MCHC 31 % (32-34) L 12/25/20 07:00 RDW 16.0 % (13.2-15.2) H 12/25/20 07:00 Plt Count 194 K/mm3 (140-440) 12/25/20 07:00 Add Manual Diff Complete 12/21/20 08:14 Total Counted 100 12/21/20 08:14 Seg Neutrophils % Wallcovering Hanger 12/21/20 08:14 Seg Neuts % (Manual) 91.0 % (40.0-70.0) H 12/21/20 08:14 Lymphocytes % (Manual) 3.0 % (13.4-35.0) L 12/21/20 08:14 Monocytes % (Manual) 6.0 % (0.0-7.3) 12/21/20 08:14 Nucleated RBC % Not Reportable 12/21/20 08:14 Seg Neutrophils # Man 21.7 K/mm3 (1.8-7.7) H 12/21/20 08:14 Band Neutrophils # 0.0 K/mm3 12/21/20 08:14 Lymphocytes # (Manual) 0.7 K/mm3 (1.2-5.4) L 12/21/20 08:14 Abs React Lymphs (Man) 0.0 K/mm3 12/21/20 08:14 Monocytes # (Manual) 1.4 K/mm3 (0.0-0.8) H 12/21/20 08:14 Eosinophils # (Manual) 0.0 K/mm3 (0.0-0.4) 12/21/20 08:14 Basophils # (Manual) 0.0 K/mm3 (0.0-0.1) 12/21/20 08:14 Metamyelocytes # 0.0 K/mm3 12/21/20 08:14 Myelocytes # 0.0 K/mm3 12/21/20 08:14 Promyelocytes # 0.0 K/mm3 12/21/20 08:14 Blast Cells # 0.0 K/mm3 12/21/20 08:14 WBC Morphology Not Reportable 12/21/20 08:14 Hypersegmented Neuts Not Reportable 12/21/20 08:14 Hyposegmented Neuts Not Reportable 12/21/20 08:14 Hypogranular Neuts Not Reportable 12/21/20 08:14 Smudge Cells Not Reportable 12/21/20 08:14 Toxic Granulation Not Reportable 12/21/20 08:14 Toxic Vacuolation Not Reportable 12/21/20 08:14 Dohle Bodies Not Reportable 12/21/20 08:14 Pelger-Huet Anomaly Not Reportable 12/21/20 08:14 Mirian Rods Not Reportable 12/21/20 08:14 Platelet Estimate Consistent w auto 12/21/20 08:14 Clumped Platelets Not Reportable 12/21/20 08:14 Plt Clumps, EDTA Not Reportable 12/21/20 08:14 Large Platelets Not Reportable 12/21/20 08:14 Giant Platelets Not Reportable 12/21/20 08:14 Platelet Satelliting Not Reportable 12/21/20 08:14 Plt Morphology Comment Not Reportable 12/21/20 08:14 RBC Morphology Normal 12/21/20 08:14 Dimorphic RBCs Not Reportable 12/21/20 08:14 Polychromasia Not Reportable 12/21/20 08:14 Hypochromasia Not Reportable 12/21/20 08:14 Poikilocytosis Not Reportable 12/21/20 08:14 Anisocytosis Not Reportable 12/21/20 08:14 Microcytosis Not Reportable 12/21/20 08:14 Macrocytosis Not Reportable 12/21/20 08:14 Spherocytes Not Reportable 12/21/20 08:14 Pappenheimer Bodies Not Reportable 12/21/20 08:14 Sickle Cells Not Reportable 12/21/20 08:14 Target Cells Not Reportable 12/21/20 08:14 Tear Drop Cells Not Reportable 12/21/20 08:14 Ovalocytes Not Reportable 12/21/20 08:14 Helmet Cells Not Reportable 12/21/20 08:14 [place] Bodies Not Reportable 12/21/20 08:14 [place] Rings Not Reportable 12/21/20 08:14 [place] Cells Not Reportable 12/21/20 08:14 Bite Cells Not Reportable 12/21/20 08:14 Crenated Cell Not Reportable 12/21/20 08:14 Elliptocytes Not Reportable 12/21/20 08:14 Acanthocytes (Spur) Not Reportable 12/21/20 08:14 Rouleaux Not Reportable 12/21/20 08:14 Hemoglobin C Crystals Not Reportable 12/21/20 08:14 Schistocytes Not Reportable 12/21/20 08:14 Malaria parasites Not Reportable 12/21/20 08:14 Dylon Bodies Not Reportable 12/21/20 08:14 Hem Pathologist Commnt No 12/21/20 08:14 APTT 49.4 Sec. (24.2-36.6) H 12/20/20 13:58 ABG pH 7.410 (7.320-7.450) 12/25/20 04:00 POC ABG pCO2 45.4 mmHg (32.0-48.0) 12/25/20 04:00 ABG pCO2 51.0 mm Hg 12/20/20 21:30 POC ABG pO2 88.7 mmHg (83-108) 12/25/20 04:00 ABG pO2 104.4 mm Hg (80.0-90.0) H 12/20/20 21:30 POC ABG HCO3 28.1 12/25/20 04:00 ABG HCO3 25.3 mmol/L (20.0-26.0) 12/20/20 21:30 ABG O2 Saturation 96.5 (0-100) 12/25/20 04:00 ABG O2 Content 20.3 (0.0-44) 12/20/20 21:30 POC ABG Base Excess 3.0 12/25/20 04:00 ABG Base Excess -1.7 mmol/L (-2.0-3.0) 12/20/20 21:30 ABG Hemoglobin 12.3 (12.0-17.5) 12/25/20 04:00 ABG Oxyhemoglobin 95.3 (94-98) 12/25/20 04:00 ABG Carboxyhemoglobin 1.3 % (0.0-5.0) 12/20/20 21:30 ABG Methemoglobin 0.3 (0.0-1.5) 12/25/20 04:00 ABG Sodium 152.5 mmol/L (136.0-145.0) H 12/25/20 04:00 ABG Potassium 3.9 mmol/L (3.40-4.50) 12/25/20 04:00 ABG Chloride 119.0 mmol/L (98-107) H 12/25/20 04:00 ABG Glucose 136 mg/dL (65-95) H 12/25/20 04:00 Oxyhemoglobin 95.2 % (95.0-99.0) 12/20/20 21:30 Carboxyhemoglobin 0.9 (0.5-1.5) 12/25/20 04:00 FiO2 100 % 12/20/20 21:30 FiO2 % 50.0 12/25/20 04:00 Sodium 156 mmol/L (137-145) H 12/25/20 07:00 Potassium 4.2 mmol/L (3.6-5.0) 12/25/20 07:00 Chloride 118.0 mmol/L (98-107) H 12/25/20 07:00 Carbon Dioxide 30 mmol/L (22-30) 12/25/20 07:00 Anion Gap 12 mmol/L 12/25/20 07:00 BUN 44 mg/dL (9-20) H 12/25/20 07:00 Creatinine 1.7 mg/dL (0.8-1.3) H 12/25/20 07:00 Estimated GFR 41 ml/min 12/25/20 07:00 BUN/Creatinine Ratio 26 % 12/25/20 07:00 Glucose 126 mg/dL (75-100) H 12/25/20 07:00 POC Glucose 104 mg/dL (70-105) 12/25/20 06:06 Lactic Acid 1.70 mmol/L (0.7-2.0) 12/20/20 16:20 Calcium 6.9 mg/dL (8.4-10.2) L 12/25/20 07:00 Ionized Calcium 4.1 mg/dL (4.8-5.6) L 12/21/20 21:28 Phosphorus 3.00 mg/dL (2.5-4.5) D 12/25/20 07:00 Magnesium 2.70 mg/dL (1.7-2.3) H 12/25/20 07:00 Total Bilirubin 0.40 mg/dL (0.1-1.2) 12/24/20 04:30 AST 40 units/L (5-40) 12/24/20 04:30 ALT 17 units/L (7-56) 12/24/20 04:30 Alkaline Phosphatase 53 units/L (35-129) 12/24/20 04:30 Troponin T < 0.010 ng/mL (0.00-0.029) 12/20/20 13:58 Total Protein 5.7 g/dL (6.3-8.2) L 12/24/20 04:30 Albumin 1.8 g/dL (3.9-5) L 12/24/20 04:30 Albumin/Globulin Ratio 0.5 % 12/24/20 04:30 Arterial Blood Glucose 136 mg/dL (65-95) H 12/25/20 04:00 Arterial Blood Ionized Calcium 3.7 mg/dL (4.6-5.3) L 12/25/20 04:00 Urine Color Yellow (Yellow) 12/23/20 12:15 Urine Turbidity Cloudy (Clear) 12/23/20 12:15 Urine pH 5.0 (5.0-7.0) 12/23/20 12:15 Ur Specific [place] 1.019 (1.003-1.030) 12/23/20 12:15 Urine Protein <15 mg/dl mg/dL (Negative) 12/23/20 12:15 Urine Glucose (UA) Neg mg/dL (Negative) 12/23/20 12:15 Urine Ketones Neg mg/dL (Negative) 12/23/20 12:15 Urine Blood Sm (Negative) 12/23/20 12:15 Urine Nitrite Neg (Negative) 12/23/20 12:15 Urine Bilirubin Neg (Negative) 12/23/20 12:15 Urine Urobilinogen < 2.0 mg/dL (<2.0) 12/23/20 12:15 Ur Leukocyte Esterase Neg (Negative) 12/23/20 12:15 Urine WBC (Auto) 5.0 /HPF (0.0-6.0) 12/23/20 12:15 Urine RBC (Auto) 2.0 /HPF (0.0-6.0) 12/23/20 12:15 U Epithel Cells (Auto) < 1.0 /HPF (0-13.0) 12/20/20 Unknown Urine Bacteria (Auto) 1+ /HPF (Negative) 12/23/20 12:15 Triple Phos Crystals 2+ 12/23/20 12:15 Hyaline Casts 19 /LPF 12/20/20 Unknown Urine Mucus Few /HPF 12/23/20 12:15 Urine Eosinophils None seen (None Seen) 12/23/20 12:15 Urine Creatinine 78.1 mg/dL (0.1-20.0) H 12/23/20 12:15 Urine Sodium 13 mmol/L 12/23/20 12:15 Fraction Sodium Excret 0.2 12/23/20 12:15 Random Vancomycin 7.9 ug/mL (0-40.0) 12/23/20 12:15 Coronavirus (PCR) Negative (Negative) 12/21/20 Unknown Blood Type A NEGATIVE 12/20/20 15:06 Antibody Screen Negative 12/20/20 15:06 Microbiology: Microbiology 12/20/20 13:58 Peripheral/Venous Blood Culture - Preliminary NO GROWTH AFTER 4 DAYS 12/20/20 13:58 Peripheral/Venous Blood Culture - Preliminary NO GROWTH AFTER 4 DAYS Lawrence/IV: Voiding Method Indwelling Catheter Active Medications - Current Medications Current Medications: Generic Name Dose Route Start Last Admin Trade Name Freq PRN Reason Stop Dose Admin Acetaminophen 650 mg 12/21/20 11:51 12/24/20 00:01 Acetaminophen 650 Mg Rect Supp VT 650 mg Q4H PRN Administration TEMP >/=100.4 Dextrose 50 ml 12/24/20 10:49 Dextrose 50% In Water (25gm) 50 Ml Syringe IV Q30MIN PRN Hypoglycemia Protocol Famotidine 20 mg 12/20/20 22:00 12/25/20 09:47 Famotidine 20 Mg/2 Ml Inj IV 20 mg BID ASCENCION Administration Fentanyl 50 mcg 12/20/20 21:58 12/21/20 03:46 Fentanyl 100 Mcg/2 Ml Inj IV 50 mcg Q10MIN PRN Administration ANALGESIA Hydrophilic Ointment 1 applic 12/20/20 21:58 Lip Therapy Vaseline TP Q2HR PRN Dry Lips Fentanyl Citrate 2,000 mcg in 100 mls @ 6.01 mls/hr 12/20/20 22:00 12/25/20 08:35 Fentanyl Drip Premix IV 5 mcg/kg/hr TITR ASCENCION 30.051 mls/hr Administration Protocol 1 MCG/KG/HR Propofol 1,000 mg in 100 mls @ 3.606 mls/hr 12/20/20 22:00 12/25/20 08:35 Diprivan 10 Mg/Ml IV 45 mcg/kg/min TITR ASCENCION 32.455 mls/hr Administration Protocol 5 MCG/KG/MIN NORepinephrine/NS 8 MG-250 ML 8 mg in 250 mls @ 3.75 mls/hr 12/21/20 09:00 12/25/20 08:55 Norepinephrine/Ns 8 Mg-250 Ml (Double Conc) IV 14 mcg/min TITRATE ASCENCION 26.25 mls/hr Titration Protocol 2 MCG/MIN Fluconazole 200 mls @ 100 mls/hr 12/23/20 13:00 12/24/20 14:00 Diflucan IV 100 mls/hr Q24H [facility] Administration Protocol Piperacillin Sod/Tazobactam Sod 4.5 gm in 100 mls @ 200 mls/hr 12/23/20 15:00 12/25/20 06:49 Zosyn/Ns 4.5gm/100ml IV 200 mls/hr Q8H [facility] Administration Protocol Vasopressin 20 unit/ Sodium 101 mls @ 9.09 mls/hr 12/24/20 09:00 Chloride IV TITR ASCENCION Protocol 0.03 UNITS/MIN Amino Acids/Electrolytes/Dextrose 2,400 mls @ 100 mls/hr 12/24/20 20:00 12/24/20 20:43 Tpn Adult IV 12/25/20 19:59 100 mls/hr DAILY@1999 [facility] Administration Protocol Amino Acids/Electrolytes/Dextrose 2,400 mls @ 100 mls/hr 12/25/20 20:00 Tpn Adult IV 12/26/20 19:59 DAILY@1999 [facility] Protocol Insulin Human Regular 0 units 12/24/20 11:00 12/25/20 08:26 Insulin Regular, Human 100 Units/1 Ml SUB-Q Not Given Q6H [facility] Protocol Multi-Ingred Cream/Lotion/Oil/Oint 1 applic 12/20/20 21:58 Mineral Oil/Petrolatum, White Ophth Oint 3.5 Gm OU Q4HR PRN Dry Eye(s) Senna/Docusate Sodium 1 tab 12/20/20 22:00 12/25/20 09:46 Sennosides/Docusate Sodium 8.6/50 Mg Tab FEEDTUBE Not Given BID [facility] Sodium Chloride 10 ml 12/20/20 22:00 12/25/20 09:47 Sodium Chloride 0.9% 10 Ml Flush Syringe IV 10 ml BID ASCENCION Administration Sodium Chloride 10 ml 12/20/20 16:42 Sodium Chloride 0.9% 10 Ml Flush Syringe IV PRN PRN LINE FLUSH Nutrition/Malnutrition Assess - Dietary Evaluation Nutrition/Malnutrition Findings: Nutrition Notes Start: 12/21/20 09:06 Freq: Status: Active Protocol: Document 12/25/20 08:17 PIETRO (Rec: 12/25/20 08:22 [email or web address]) Nutrition Notes Initial or Follow up Reassessment Current Diagnosis Coronary Artery Disease, Hypertension,Small Bowel Obstruction,Hyperlipidemia Other Pertinent Diagnosis gangrenous small bowel, s/p small bowel ressection, peritonitis Current Diet TPN at 100 ml/hr Labs/Tests Na 156 BUN 44 Cr 1.7 Pertinent Medications Propofol at 25.242 ml/hr (663 kcal) Height 6 ft Weight 120.202 kg [place] Body Weight (kg) 80.90 BMI 35.9 Weight Status Morbidly Obese Subjective/Other Information Day 2 TPN. Pt will likely return to OR on Saturday. Percent of energy/protein needs met: 62%/37% (including propofol) Burn Absent Trauma Absent GI Symptoms Other Current % PO Negligible Minimum of two criteria No physical signs of malnutrition #2 Nutrition Diagnosis Increased nutrient needs ( specify in comment below) Diagnosis Progress(for reassessment Continues documentation) #1 Nutrition Diagnosis Inadequate oral intake Diagnosis Progress(for reassessment Continues documentation) Is patient on ventilator? Yes Is Patient Ambulatory and/or Out of Bed No REE-([facility]-confined to bed) 2470.248 Kcal/Kg value to use for calculation 17 Approximate Energy Requirements Using 2043 kcal/Kg Calculation Used for Recommendations Kcal/kg Additional Notes Protein: >2g/IBW (>162g) Fluid: 1 ml/kcal or per MD Nutrition Intervention Change Diet Order: Continue CPN Nutrition Support: CPN at 100 ml/hr; Dextrose 8.3 %; AA 3.1%; phos 10 mmol MVI, Thiamine Kcal 980 Protein (gm) 75 Carbohydrates (gm) 200 Fat (gm) 0 Fluid (mL) 2,400 Goal #1 Meet needs as best as possible via CPN Anticipated Discharge Needs: Unable to determine at this time Follow-Up By: 12/26/20 Additional Comments Labs in AM: BMP, Mg, Phos <ALEN CALDERON O - Last Filed: 12/25/20 14:53> History Interval history: This is a 60-year-old male with obesity, hypertension, nicotine dependence, PVD s/p stent placement on dual antiplatelet therapy, hyperlipidemia, OA, GERD, ventral hernia and small bowel obstruction who was admitted with small bowel obstruction and peritonitis. he is s/p ex lap, extensive lysis of adhesions, small bowel resection (removal of 70 cm necrotic small bowel segment), peritoneal lavage and ABThera abdominal wound VAC placement. I have seen and evaluated the patient and discussed with Nurse Practitioner. I agree with the findings and the plan of care as documented in the Nurse Practitioner's note. Hospitalist Physical - Constitutional Vitals: Temp Pulse Resp BP Pulse Ox 100.4 F H 92 H 24 122/69 94 12/25/20 12:00 12/25/20 14:30 12/25/20 14:30 12/25/20 14:30 12/25/20 14:30 HEART Score - HEART Score Troponin: Troponin T < 0.010 ng/mL (0.00-0.029) 12/20/20 13:58 Results - Labs CBC & Chem 7: 12/25/20 07:00 12/25/20 07:00 Labs: Laboratory Last Values WBC 17.6 K/mm3 (4.5-11.0) H 12/25/20 07:00 RBC 4.37 M/mm3 (3.65-5.03) 12/25/20 07:00 Hgb 12.0 gm/dl (11.8-15.2) 12/25/20 07:00 Hct 38.6 % (35.5-45.6) 12/25/20 07:00 MCV 88 fl (84-94) 12/25/20 07:00 MCH 28 pg (28-32) 12/25/20 07:00 MCHC 31 % (32-34) L 12/25/20 07:00 RDW 16.0 % (13.2-15.2) H 12/25/20 07:00 Plt Count 194 K/mm3 (140-440) 12/25/20 07:00 Add Manual Diff Complete 12/21/20 08:14 Total Counted 100 12/21/20 08:14 Seg Neutrophils % Wallcovering Hanger 12/21/20 08:14 Seg Neuts % (Manual) 91.0 % (40.0-70.0) H 12/21/20 08:14 Lymphocytes % (Manual) 3.0 % (13.4-35.0) L 12/21/20 08:14 Monocytes % (Manual) 6.0 % (0.0-7.3) 12/21/20 08:14 Nucleated RBC % Not Reportable 12/21/20 08:14 Seg Neutrophils # Man 21.7 K/mm3 (1.8-7.7) H 12/21/20 08:14 Band Neutrophils # 0.0 K/mm3 12/21/20 08:14 Lymphocytes # (Manual) 0.7 K/mm3 (1.2-5.4) L 12/21/20 08:14 Abs React Lymphs (Man) 0.0 K/mm3 12/21/20 08:14 Monocytes # (Manual) 1.4 K/mm3 (0.0-0.8) H 12/21/20 08:14 Eosinophils # (Manual) 0.0 K/mm3 (0.0-0.4) 12/21/20 08:14 Basophils # (Manual) 0.0 K/mm3 (0.0-0.1) 12/21/20 08:14 Metamyelocytes # 0.0 K/mm3 12/21/20 08:14 Myelocytes # 0.0 K/mm3 12/21/20 08:14 Promyelocytes # 0.0 K/mm3 12/21/20 08:14 Blast Cells # 0.0 K/mm3 12/21/20 08:14 WBC Morphology Not Reportable 12/21/20 08:14 Hypersegmented Neuts Not Reportable 12/21/20 08:14 Hyposegmented Neuts Not Reportable 12/21/20 08:14 Hypogranular Neuts Not Reportable 12/21/20 08:14 Smudge Cells Not Reportable 12/21/20 08:14 Toxic Granulation Not Reportable 12/21/20 08:14 Toxic Vacuolation Not Reportable 12/21/20 08:14 Dohle Bodies Not Reportable 12/21/20 08:14 Pelger-Huet Anomaly Not Reportable 12/21/20 08:14 Mirian Rods Not Reportable 12/21/20 08:14 Platelet Estimate Consistent w auto 12/21/20 08:14 Clumped Platelets Not Reportable 12/21/20 08:14 Plt Clumps, EDTA Not Reportable 12/21/20 08:14 Large Platelets Not Reportable 12/21/20 08:14 Giant Platelets Not Reportable 12/21/20 08:14 Platelet Satelliting Not Reportable 12/21/20 08:14 Plt Morphology Comment Not Reportable 12/21/20 08:14 RBC Morphology Normal 12/21/20 08:14 Dimorphic RBCs Not Reportable 12/21/20 08:14 Polychromasia Not Reportable 12/21/20 08:14 Hypochromasia Not Reportable 12/21/20 08:14 Poikilocytosis Not Reportable 12/21/20 08:14 Anisocytosis Not Reportable 12/21/20 08:14 Microcytosis Not Reportable 12/21/20 08:14 Macrocytosis Not Reportable 12/21/20 08:14 Spherocytes Not Reportable 12/21/20 08:14 Pappenheimer Bodies Not Reportable 12/21/20 08:14 Sickle Cells Not Reportable 12/21/20 08:14 Target Cells Not Reportable 12/21/20 08:14 Tear Drop Cells Not Reportable 12/21/20 08:14 Ovalocytes Not Reportable 12/21/20 08:14 Helmet Cells Not Reportable 12/21/20 08:14 [place] Bodies Not Reportable 12/21/20 08:14 [place] Rings Not Reportable 12/21/20 08:14 [place] Cells Not Reportable 12/21/20 08:14 Bite Cells Not Reportable 12/21/20 08:14 Crenated Cell Not Reportable 12/21/20 08:14 Elliptocytes Not Reportable 12/21/20 08:14 Acanthocytes (Spur) Not Reportable 12/21/20 08:14 Rouleaux Not Reportable 12/21/20 08:14 Hemoglobin C Crystals Not Reportable 12/21/20 08:14 Schistocytes Not Reportable 12/21/20 08:14 Malaria parasites Not Reportable 12/21/20 08:14 [place]ylon Bodies Not Reportable 12/21/20 08:14 Hem Pathologist Commnt No 12/21/20 08:14 APTT 49.4 Sec. (24.2-36.6) H 12/20/20 13:58 ABG pH 7.410 (7.320-7.450) 12/25/20 04:00 POC ABG pCO2 45.4 mmHg (32.0-48.0) 12/25/20 04:00 ABG pCO2 51.0 mm Hg 12/20/20 21:30 POC ABG pO2 88.7 mmHg (83-108) 12/25/20 04:00 ABG pO2 104.4 mm Hg (80.0-90.0) H 12/20/20 21:30 POC ABG HCO3 28.1 12/25/20 04:00 ABG HCO3 25.3 mmol/L (20.0-26.0) 12/20/20 21:30 ABG O2 Saturation 96.5 (0-100) 12/25/20 04:00 ABG O2 Content 20.3 (0.0-44) 12/20/20 21:30 POC ABG Base Excess 3.0 12/25/20 04:00 ABG Base Excess -1.7 mmol/L (-2.0-3.0) 12/20/20 21:30 ABG Hemoglobin 12.3 (12.0-17.5) 12/25/20 04:00 ABG Oxyhemoglobin 95.3 (94-98) 12/25/20 04:00 ABG Carboxyhemoglobin 1.3 % (0.0-5.0) 12/20/20 21:30 ABG Methemoglobin 0.3 (0.0-1.5) 12/25/20 04:00 ABG Sodium 152.5 mmol/L (136.0-145.0) H 12/25/20 04:00 ABG Potassium 3.9 mmol/L (3.40-4.50) 12/25/20 04:00 ABG Chloride 119.0 mmol/L (98-107) H 12/25/20 04:00 ABG Glucose 136 mg/dL (65-95) H 12/25/20 04:00 Oxyhemoglobin 95.2 % (95.0-99.0) 12/20/20 21:30 Carboxyhemoglobin 0.9 (0.5-1.5) 12/25/20 04:00 FiO2 100 % 12/20/20 21:30 FiO2 % 50.0 12/25/20 04:00 Sodium 156 mmol/L (137-145) H 12/25/20 07:00 Potassium 4.2 mmol/L (3.6-5.0) 12/25/20 07:00 Chloride 118.0 mmol/L (98-107) H 12/25/20 07:00 Carbon Dioxide 30 mmol/L (22-30) 12/25/20 07:00 Anion Gap 12 mmol/L 12/25/20 07:00 BUN 44 mg/dL (9-20) H 12/25/20 07:00 Creatinine 1.7 mg/dL (0.8-1.3) H 12/25/20 07:00 Estimated GFR 41 ml/min 12/25/20 07:00 BUN/Creatinine Ratio 26 % 12/25/20 07:00 Glucose 126 mg/dL (75-100) H 12/25/20 07:00 POC Glucose 110 mg/dL (70-105) H 12/25/20 11:24 Lactic Acid 1.70 mmol/L (0.7-2.0) 12/20/20 16:20 Calcium 6.9 mg/dL (8.4-10.2) L 12/25/20 07:00 Ionized Calcium 4.1 mg/dL (4.8-5.6) L 12/21/20 21:28 Phosphorus 3.00 mg/dL (2.5-4.5) D 12/25/20 07:00 Magnesium 2.70 mg/dL (1.7-2.3) H 12/25/20 07:00 Total Bilirubin 0.40 mg/dL (0.1-1.2) 12/24/20 04:30 AST 40 units/L (5-40) 12/24/20 04:30 ALT 17 units/L (7-56) 12/24/20 04:30 Alkaline Phosphatase 53 units/L (35-129) 12/24/20 04:30 Troponin T < 0.010 ng/mL (0.00-0.029) 12/20/20 13:58 Total Protein 5.7 g/dL (6.3-8.2) L 12/24/20 04:30 Albumin 1.8 g/dL (3.9-5) L 12/24/20 04:30 Albumin/Globulin Ratio 0.5 % 12/24/20 04:30 Arterial Blood Glucose 136 mg/dL (65-95) H 12/25/20 04:00 Arterial Blood Ionized Calcium 3.7 mg/dL (4.6-5.3) L 12/25/20 04:00 Urine Color Yellow (Yellow) 12/23/20 12:15 Urine Turbidity Cloudy (Clear) 12/23/20 12:15 Urine pH 5.0 (5.0-7.0) 12/23/20 12:15 Ur Specific [place] 1.019 (1.003-1.030) 12/23/20 12:15 Urine Protein <15 mg/dl mg/dL (Negative) 12/23/20 12:15 Urine Glucose (UA) Neg mg/dL (Negative) 12/23/20 12:15 Urine Ketones Neg mg/dL (Negative) 12/23/20 12:15 Urine Blood Sm (Negative) 12/23/20 12:15 Urine Nitrite Neg (Negative) 12/23/20 12:15 Urine Bilirubin Neg (Negative) 12/23/20 12:15 Urine Urobilinogen < 2.0 mg/dL (<2.0) 12/23/20 12:15 Ur Leukocyte Esterase Neg (Negative) 12/23/20 12:15 Urine WBC (Auto) 5.0 /HPF (0.0-6.0) 12/23/20 12:15 Urine RBC (Auto) 2.0 /HPF (0.0-6.0) 12/23/20 12:15 U Epithel Cells (Auto) < 1.0 /HPF (0-13.0) 12/20/20 Unknown Urine Bacteria (Auto) 1+ /HPF (Negative) 12/23/20 12:15 Triple Phos Crystals 2+ 12/23/20 12:15 Hyaline Casts 19 /LPF 12/20/20 Unknown Urine Mucus Few /HPF 12/23/20 12:15 Urine Eosinophils None seen (None Seen) 12/23/20 12:15 Urine Creatinine 78.1 mg/dL (0.1-20.0) H 12/23/20 12:15 Urine Sodium 13 mmol/L 12/23/20 12:15 Fraction Sodium Excret 0.2 12/23/20 12:15 Random Vancomycin 7.9 ug/mL (0-40.0) 12/23/20 12:15 Coronavirus (PCR) Negative (Negative) 12/21/20 Unknown Blood Type A NEGATIVE 12/20/20 15:06 Antibody Screen Negative 12/20/20 15:06 Microbiology: Microbiology 12/20/20 13:58 Peripheral/Venous Blood Culture - Final NO GROWTH AFTER 5 DAYS 12/20/20 13:58 Peripheral/Venous Blood Culture - Final NO GROWTH AFTER 5 DAYS Lawrence/IV: Voiding Method Indwelling Catheter Active Medications - Current Medications Current Medications: Generic Name Dose Route Start Last Admin Trade Name Freq PRN Reason Stop Dose Admin Acetaminophen 650 mg 12/21/20 11:51 12/24/20 00:01 Acetaminophen 650 Mg Rect Supp [place] 650 mg Q4H PRN Administration TEMP >/=100.4 Dextrose 50 ml 12/24/20 10:49 Dextrose 50% In Water (25gm) 50 Ml Syringe IV Q30MIN PRN Hypoglycemia Protocol Famotidine 20 mg 12/20/20 22:00 12/25/20 09:47 Famotidine 20 Mg/2 Ml Inj IV 20 mg BID ASCENCION Administration Fentanyl 50 mcg 12/20/20 21:58 12/21/20 03:46 Fentanyl 100 Mcg/2 Ml Inj IV 50 mcg Q10MIN PRN Administration ANALGESIA Hydrophilic Ointment 1 applic 12/20/20 21:58 Lip Therapy Vaseline TP Q2HR PRN Dry Lips Fentanyl Citrate 2,000 mcg in 100 mls @ 6.01 mls/hr 12/20/20 22:00 12/25/20 11:39 Fentanyl Drip Premix IV 5 mcg/kg/hr TITR ASCENCION 30.051 mls/hr Administration Protocol 1 MCG/KG/HR Propofol 1,000 mg in 100 mls @ 3.606 mls/hr 12/20/20 22:00 12/25/20 11:41 Diprivan 10 Mg/Ml IV 40 mcg/kg/min TITR ASCENCION 28.848 mls/hr Titration Protocol 5 MCG/KG/MIN NORepinephrine/NS 8 MG-250 ML 8 mg in 250 mls @ 3.75 mls/hr 12/21/20 09:00 12/25/20 11:45 Norepinephrine/Ns 8 Mg-250 Ml (Double Conc) IV 16 mcg/min TITRATE ASCENCION 30 mls/hr Titration Protocol 2 MCG/MIN Fluconazole 200 mls @ 100 mls/hr 12/23/20 13:00 12/25/20 13:24 Diflucan IV 100 mls/hr Q24H [facility] Administration Protocol Piperacillin Sod/Tazobactam Sod 4.5 gm in 100 mls @ 200 mls/hr 12/23/20 15:00 12/25/20 06:49 Zosyn/Ns 4.5gm/100ml IV 200 mls/hr Q8H [facility] Administration Protocol Vasopressin 20 unit/ Sodium 101 mls @ 9.09 mls/hr 12/24/20 09:00 Chloride IV TITR [facility] Protocol 0.03 UNITS/MIN Amino Acids/Electrolytes/Dextrose 2,400 mls @ 100 mls/hr 12/24/20 20:00 12/24/20 20:43 Tpn Adult IV 12/25/20 19:59 100 mls/hr DAILY@1999 [facility] Administration Protocol Amino Acids/Electrolytes/Dextrose 2,400 mls @ 100 mls/hr 12/25/20 20:00 Tpn Adult IV 12/26/20 19:59 DAILY@1999 [facility] Protocol Lactated Ringer's 1,000 mls @ 999 mls/hr 12/25/20 13:15 Lactated Ringers IV 12/26/20 14:16 BOLUS ASCENCION Dextrose 1,000 mls @ 100 mls/hr 12/25/20 14:00 D5w IV DIRECT [facility] Insulin Human Regular 0 units 12/24/20 11:00 12/25/20 13:20 Insulin Regular, Human 100 Units/1 Ml SUB-Q Not Given Q6H [facility] Protocol Multi-Ingred Cream/Lotion/Oil/Oint 1 applic 12/20/20 21:58 Mineral Oil/Petrolatum, White Ophth Oint 3.5 Gm OU Q4HR PRN Dry Eye(s) Senna/Docusate Sodium 1 tab 12/20/20 22:00 12/25/20 09:46 Sennosides/Docusate Sodium 8.6/50 Mg Tab FEEDTUBE Not Given BID [facility] Sodium Chloride 10 ml 12/20/20 22:00 12/25/20 09:47 Sodium Chloride 0.9% 10 Ml Flush Syringe IV 10 ml BID ASCENCION Administration Sodium Chloride 10 ml 12/20/20 16:42 Sodium Chloride 0.9% 10 Ml Flush Syringe IV PRN PRN LINE FLUSH Nutrition/Malnutrition Assess - Dietary Evaluation Nutrition/Malnutrition Findings: Nutrition Notes Start: 12/21/20 09:06 Freq: Status: Active Protocol: Document 12/25/20 08:17 PIETRO (Rec: 12/25/20 08:22 [id number]) Nutrition Notes Initial or Follow up Reassessment Current Diagnosis Coronary Artery Disease, Hypertension,Small Bowel Obstruction,Hyperlipidemia Other Pertinent Diagnosis gangrenous small bowel, s/p small bowel ressection, peritonitis Current Diet TPN at 100 ml/hr Labs/Tests Na 156 BUN 44 Cr 1.7 Pertinent Medications Propofol at 25.242 ml/hr (663 kcal) Height 6 ft Weight 120.202 kg [place] Body Weight (kg) 80.90 BMI 35.9 Weight Status Morbidly Obese Subjective/Other Information Day 2 TPN. Pt will likely return to OR on Saturday. Percent of energy/protein needs met: 62%/37% (including propofol) Burn Absent Trauma Absent GI Symptoms Other Current % PO Negligible Minimum of two criteria No physical signs of malnutrition #2 Nutrition Diagnosis Increased nutrient needs ( specify in comment below) Diagnosis Progress(for reassessment Continues documentation) #1 Nutrition Diagnosis Inadequate oral intake Diagnosis Progress(for reassessment Continues documentation) Is patient on ventilator? Yes Is Patient Ambulatory and/or Out of Bed No REE-([facility]-confined to bed) 2470.248 Kcal/Kg value to use for calculation 17 Approximate Energy Requirements Using 2043 kcal/Kg Calculation Used for Recommendations Kcal/kg Additional Notes Protein: >2g/IBW (>162g) Fluid: 1 ml/kcal or per MD Nutrition Intervention Change Diet Order: Continue CPN Nutrition Support: CPN at 100 ml/hr; Dextrose 8.3 %; AA 3.1%; phos 10 mmol MVI, Thiamine Kcal 980 Protein (gm) 75 Carbohydrates (gm) 200 Fat (gm) 0 Fluid (mL) 2,400 Goal #1 Meet needs as best as possible via CPN Anticipated Discharge Needs: Unable to determine at this time Follow-Up By: 12/26/20 Additional Comments Labs in AM: BMP, Mg, Phos
--- NOTE | 2020-12-25 10:26 | Progress Note ---
Assessment and Plan Impression * Acute kidney injury. Most likely prerenal. However do need to consider progression to ATN as well * Incarcerated hernia with ischemic bowel. Status post bowel resection * Hypernatremia * Sepsis * Respiratory failure Recommendations * Acute kidney injury most likely prerenal. His urine shows trace protein and only 2 RBCs per high-power field. Fractional excretion of sodium is 0.2% . His baseline creatinine is approximately 0.7. * Agree with IV hydration. * Patient currently has indwelling Lawrence catheter in place and is also nonoliguric. * Continue hypotonic IV fluid after fluid bolus . Minimize sodium content of TPN * Pressors to maintain MAP greater than 65 * Avoid nephrotoxins * Monitor fluid status and electrolytes closely Subjective Date of service: 12/25/20 Interval history: Patient remains on the ventilator. Currently on 50% FiO2. Unresponsive. He is also on a Levophed drip. Objective - Vital Signs Vital signs: Vital Signs - 12hr 12/24/20 12/24/20 12/24/20 22:30 22:45 23:00 Temperature Pulse Rate 115 H 112 H 109 H Pulse Rate [ From Monitor] Respiratory 22 24 15 Rate Blood Pressure 123/72 118/54 118/54 O2 Sat by Pulse 92 93 96 Oximetry 12/24/20 12/24/20 12/24/20 23:15 23:30 23:46 Temperature Pulse Rate 86 90 84 Pulse Rate [ From Monitor] Respiratory 24 24 24 Rate Blood Pressure 112/59 116/66 138/74 O2 Sat by Pulse 98 94 96 Oximetry 12/25/20 12/25/20 12/25/20 00:00 00:11 00:15 Temperature 100.4 F H Pulse Rate 86 88 85 Pulse Rate [ 84 From Monitor] Respiratory 19 24 Rate Blood Pressure 138/74 108/53 123/68 O2 Sat by Pulse 94 97 94 Oximetry 12/25/20 12/25/20 12/25/20 00:30 00:45 01:00 Temperature Pulse Rate 84 86 83 Pulse Rate [ From Monitor] Respiratory 11 L 23 0 L Rate Blood Pressure 124/76 122/71 122/71 O2 Sat by Pulse 94 94 94 Oximetry 12/25/20 12/25/20 12/25/20 01:16 01:30 01:45 Temperature Pulse Rate 112 H 105 H 87 Pulse Rate [ From Monitor] Respiratory 12 19 24 Rate Blood Pressure 122/71 80/51 157/84 O2 Sat by Pulse 95 95 Oximetry 12/25/20 12/25/20 12/25/20 02:00 02:15 02:30 Temperature Pulse Rate 85 84 111 H Pulse Rate [ From Monitor] Respiratory 21 9 L 24 Rate Blood Pressure 130/70 129/75 135/77 O2 Sat by Pulse 95 94 93 Oximetry 12/25/20 12/25/20 12/25/20 02:45 03:00 03:15 Temperature Pulse Rate 111 H 113 H 114 H Pulse Rate [ From Monitor] Respiratory 8 L 18 15 Rate Blood Pressure 127/82 124/74 128/81 O2 Sat by Pulse 94 93 93 Oximetry 12/25/20 12/25/20 12/25/20 03:25 03:30 03:46 Temperature 100.4 F H Pulse Rate 89 90 Pulse Rate [ From Monitor] Respiratory 7 L 17 Rate Blood Pressure 127/73 93/73 O2 Sat by Pulse 94 92 Oximetry 12/25/20 12/25/20 12/25/20 04:00 04:15 04:30 Temperature Pulse Rate 87 88 89 Pulse Rate [ 90 From Monitor] Respiratory 24 24 21 Rate Blood Pressure 131/71 128/73 124/75 O2 Sat by Pulse 93 94 94 Oximetry 12/25/20 12/25/20 12/25/20 04:35 04:46 05:00 Temperature Pulse Rate 91 H 93 H 94 H Pulse Rate [ From Monitor] Respiratory 20 9 L Rate Blood Pressure 124/75 124/75 120/75 O2 Sat by Pulse 96 94 Oximetry 12/25/20 12/25/20 12/25/20 05:15 05:30 05:46 Temperature Pulse Rate 93 H 92 H 95 H Pulse Rate [ From Monitor] Respiratory 8 L 19 23 Rate Blood Pressure 134/77 137/86 134/77 O2 Sat by Pulse 98 93 Oximetry 12/25/20 12/25/20 12/25/20 06:00 06:15 06:30 Temperature Pulse Rate 96 H 96 H 101 H Pulse Rate [ From Monitor] Respiratory 19 21 25 H Rate Blood Pressure 127/65 127/70 127/70 O2 Sat by Pulse 94 93 91 Oximetry 12/25/20 12/25/20 12/25/20 06:45 07:00 07:15 Temperature Pulse Rate 95 H 95 H 98 H Pulse Rate [ From Monitor] Respiratory 24 24 25 H Rate Blood Pressure 123/72 127/70 123/72 O2 Sat by Pulse 95 92 Oximetry 12/25/20 12/25/20 12/25/20 07:30 07:46 07:53 Temperature Pulse Rate 96 H 100 H 97 H Pulse Rate [ From Monitor] Respiratory 24 24 Rate Blood Pressure 125/69 124/73 113/68 O2 Sat by Pulse 94 94 95 Oximetry 12/25/20 12/25/20 12/25/20 07:57 08:00 08:15 Temperature 100.4 F H 100.4 F H Pulse Rate 97 H 96 H Pulse Rate [ 117 H From Monitor] Respiratory 24 21 Rate Blood Pressure 123/69 133/57 O2 Sat by Pulse 93 93 Oximetry 12/25/20 08:30 Temperature Pulse Rate 100 H Pulse Rate [ From Monitor] Respiratory 17 Rate Blood Pressure 127/70 O2 Sat by Pulse 93 Oximetry - General Appearance General appearance: well-developed, well-nourished, appears stated age, intubated EENT: PERRL, mucous membranes moist Neck: no JVD, no thyromegaly Respiratory: Present: Ronchi (Few scattered rhonchi) Cardiology: regular, normal heart rate Gastrointestinal: other (Midline incision noted. Wound VAC in place.) Integumentary: other (No edema) - Lab 12/25/20 07:00 12/25/20 07:00 Most recent lab results ABG pH 7.410 (7.320-7.450) 12/25/20 04:00 ABG pCO2 51.0 mm Hg 12/20/20 21:30 ABG pO2 104.4 mm Hg (80.0-90.0) H 12/20/20 21:30 ABG HCO3 25.3 mmol/L (20.0-26.0) 12/20/20 21:30 ABG O2 Saturation 96.5 (0-100) 12/25/20 04:00 Calcium 6.9 mg/dL (8.4-10.2) L 12/25/20 07:00 Phosphorus 3.00 mg/dL (2.5-4.5) D 12/25/20 07:00 Magnesium 2.70 mg/dL (1.7-2.3) H 12/25/20 07:00 Urine Creatinine 78.1 mg/dL (0.1-20.0) H 12/23/20 12:15 Urine Sodium 13 mmol/L 12/23/20 12:15 Medications & Allergies - Medications Allergies/Adverse Reactions: Allergies Iodinated Contrast Media Adverse Reaction (Verified 09/04/18 14:20) Unknown Home Medications: Home Medications Medication Instructions Recorded Confirmed Last Taken Type Aspirin 81 mg PO DAILY #30 tab.chew 09/08/18 09/12/20 03/31/20 09:28 Rx AtorvaSTATin [Lipitor] 80 mg PO QHS tablet 05/08/19 09/12/20 03/28/20 Rx Albuterol Sulfate [Proventil Hfa] 13.4 gm IH Q6H #1 hfa.aer.ad 04/01/20 09/12/20 Unknown Rx Clopidogrel [Plavix] 75 mg PO DAILY #30 tablet 04/01/20 09/12/20 Unknown Rx Gabapentin 300 mg PO BID@0700,1800 30 Days 04/01/20 09/12/20 Unknown Rx capsule Gabapentin 600 mg PO QHS 30 Days capsule 04/01/20 09/12/20 Unknown Rx Metoprolol [Lopressor TAB] 25 mg PO BID #60 tablet 04/01/20 09/12/20 Unknown Rx [place]-3/Dha/Epa/Fish Oil [[place] 3 1 each PO BID #60 capsule 04/01/20 09/12/20 Unknown Rx 500 Softgel] Tiotropium [place] [Spiriva] 2 puff IH DAILY #30 cap.w.dev 04/01/20 09/12/20 Unknown Rx Ubidecarenone [Co Q-10] 10 mg PO BID #60 tab 04/01/20 09/12/20 03/29/20 Rx cilostazoL [Pletal] 50 mg PO BID 30 Days tablet 04/01/20 09/12/20 Unknown Rx oxyCODONE /ACETAMINOPHEN [Percocet 2 tab PO Q6H PRN tablet 04/01/20 09/12/20 Unknown Rx 5/325 mg] Phosphorus #1 [K-Phos Neutral] 250 mg PO QID 2 Days #8 tablet 09/14/20 Unknown Rx Active Medications: Generic Name Dose Route Start Last Admin Trade Name Freq PRN Reason Stop Dose Admin Acetaminophen 650 mg 12/21/20 11:51 12/24/20 00:01 Acetaminophen 650 Mg Rect Supp [place] 650 mg Q4H PRN Administration TEMP >/=100.4 Dextrose 50 ml 12/24/20 10:49 Dextrose 50% In Water (25gm) 50 Ml Syringe IV Q30MIN PRN Hypoglycemia Protocol Famotidine 20 mg 12/20/20 22:00 12/25/20 09:47 Famotidine 20 Mg/2 Ml Inj IV 20 mg BID ASCENCION Administration Fentanyl 50 mcg 12/20/20 21:58 12/21/20 03:46 Fentanyl 100 Mcg/2 Ml Inj IV 50 mcg Q10MIN PRN Administration ANALGESIA Hydrophilic Ointment 1 applic 12/20/20 21:58 Lip Therapy Vaseline TP Q2HR PRN Dry Lips Fentanyl Citrate 2,000 mcg in 100 mls @ 6.01 mls/hr 12/20/20 22:00 12/25/20 08:35 Fentanyl Drip Premix IV 5 mcg/kg/hr TITR ASCENCION 30.051 mls/hr Administration Protocol 1 MCG/KG/HR Propofol 1,000 mg in 100 mls @ 3.606 mls/hr 12/20/20 22:00 12/25/20 08:35 Diprivan 10 Mg/Ml IV 45 mcg/kg/min TITR ASCENCION 32.455 mls/hr Administration Protocol 5 MCG/KG/MIN NORepinephrine/NS 8 MG-250 ML 8 mg in 250 mls @ 3.75 mls/hr 12/21/20 09:00 12/25/20 08:55 Norepinephrine/Ns 8 Mg-250 Ml (Double Conc) IV 14 mcg/min TITRATE ASCENCION 26.25 mls/hr Titration Protocol 2 MCG/MIN Fluconazole 200 mls @ 100 mls/hr 12/23/20 13:00 12/24/20 14:00 Diflucan IV 100 mls/hr Q24H [facility] Administration Protocol Piperacillin Sod/Tazobactam Sod 4.5 gm in 100 mls @ 200 mls/hr 12/23/20 15:00 12/25/20 06:49 Zosyn/Ns 4.5gm/100ml IV 200 mls/hr Q8H [facility] Administration Protocol Vasopressin 20 unit/ Sodium 101 mls @ 9.09 mls/hr 12/24/20 09:00 Chloride IV TITR [facility] Protocol 0.03 UNITS/MIN Amino Acids/Electrolytes/Dextrose 2,400 mls @ 100 mls/hr 12/24/20 20:00 12/24/20 20:43 Tpn Adult IV 12/25/20 19:59 100 mls/hr DAILY@1999 [facility] Administration Protocol Amino Acids/Electrolytes/Dextrose 2,400 mls @ 100 mls/hr 12/25/20 20:00 Tpn Adult IV 12/26/20 19:59 DAILY@1999 [facility] Protocol Insulin Human Regular 0 units 12/24/20 11:00 12/25/20 08:26 Insulin Regular, Human 100 Units/1 Ml SUB-Q Not Given Q6H [facility] Protocol Multi-Ingred Cream/Lotion/Oil/Oint 1 applic 12/20/20 21:58 Mineral Oil/Petrolatum, White Ophth Oint 3.5 Gm OU Q4HR PRN Dry Eye(s) Senna/Docusate Sodium 1 tab 12/20/20 22:00 12/25/20 09:46 Sennosides/Docusate Sodium 8.6/50 Mg Tab FEEDTUBE Not Given BID [facility] Sodium Chloride 10 ml 12/20/20 22:00 12/25/20 09:47 Sodium Chloride 0.9% 10 Ml Flush Syringe IV 10 ml BID ASC[facility] Administration Sodium Chloride 10 ml 12/20/20 16:42 Sodium Chloride 0.9% 10 Ml Flush Syringe IV PRN PRN LINE FLUSH
--- NOTE | 2020-12-25 11:17 | Progress Note ---
Assessment and Plan 60 yo M POD#4 s/p ex lap and small bowel resection POD #2 s/p Abdominal exploration, Small bowel resection, Peritoneal lavage, ABThera wound VAC placement 1. Incarcerated ventral hernias 2. gangrenous small bowel 2/2 #1 3. Septic shock 2/2 #2 4. Morbid obesity 5. Open abdomen status post previous exploratory laparotomy 6. protein calorie malnutrition Plan 1. neuro - continue deep sedation with propofol and fent gtt until definitive abdominal closure is performed 2. CV - tachycardia resolved. On levophed at 14 from 26 mcg, wean as tolerated. Ivy in place. DVT ppx. CBC in am - WBC trending down 3. Resp - maintain on vent until definitive abdominal closure. Crit care on board 4. GI - NPO, start TPN - international sales representative consulted, GI Ppx. NGT to LIWS. Maintain abthera to -125mmHg continuous suction 5. - haley for accurate I/Os 6. Endo - strict glucose control 7. ID - abx per ID. Fever curve improving 8. FEN - BMP daily. replace lytes as need Guarded prognosis. Possible return to OR tomorrow. Please call with questions. Subjective Date of service: 12/25/20 Narrative: Pt seen and examined. No overnight events noted. Remains intubated on vent. Tm 100.6 Objective Vital Signs - 12hr 12/24/20 12/24/20 12/25/20 23:30 23:46 00:00 Temperature 100.4 F H Pulse Rate 90 84 86 Pulse Rate [ 84 From Monitor] Respiratory 24 24 19 Rate Blood Pressure 116/66 138/74 138/74 O2 Sat by Pulse 94 96 94 Oximetry 12/25/20 12/25/20 12/25/20 00:11 00:15 00:30 Temperature Pulse Rate 88 85 84 Pulse Rate [ From Monitor] Respiratory 24 11 L Rate Blood Pressure 108/53 123/68 124/76 O2 Sat by Pulse 97 94 94 Oximetry 12/25/20 12/25/20 12/25/20 00:45 01:00 01:16 Temperature Pulse Rate 86 83 112 H Pulse Rate [ From Monitor] Respiratory 23 0 L 12 Rate Blood Pressure 122/71 122/71 122/71 O2 Sat by Pulse 94 94 95 Oximetry 12/25/20 12/25/20 12/25/20 01:30 01:45 02:00 Temperature Pulse Rate 105 H 87 85 Pulse Rate [ From Monitor] Respiratory 19 24 21 Rate Blood Pressure 80/51 157/84 130/70 O2 Sat by Pulse 95 95 Oximetry 12/25/20 12/25/20 12/25/20 02:15 02:30 02:45 Temperature Pulse Rate 84 111 H 111 H Pulse Rate [ From Monitor] Respiratory 9 L 24 8 L Rate Blood Pressure 129/75 135/77 127/82 O2 Sat by Pulse 94 93 94 Oximetry 12/25/20 12/25/20 12/25/20 03:00 03:15 03:25 Temperature 100.4 F H Pulse Rate 113 H 114 H Pulse Rate [ From Monitor] Respiratory 18 15 Rate Blood Pressure 124/74 128/81 O2 Sat by Pulse 93 93 Oximetry 12/25/20 12/25/20 12/25/20 03:30 03:46 04:00 Temperature Pulse Rate 89 90 87 Pulse Rate [ 90 From Monitor] Respiratory 7 L 17 24 Rate Blood Pressure 127/73 93/73 131/71 O2 Sat by Pulse 94 92 93 Oximetry 12/25/20 12/25/20 12/25/20 04:15 04:30 04:35 Temperature Pulse Rate 88 89 91 H Pulse Rate [ From Monitor] Respiratory 24 21 Rate Blood Pressure 128/73 124/75 124/75 O2 Sat by Pulse 94 94 96 Oximetry 12/25/20 12/25/20 12/25/20 04:46 05:00 05:15 Temperature Pulse Rate 93 H 94 H 93 H Pulse Rate [ From Monitor] Respiratory 20 9 L 8 L Rate Blood Pressure 124/75 120/75 134/77 O2 Sat by Pulse 94 Oximetry 12/25/20 12/25/20 12/25/20 05:30 05:46 06:00 Temperature Pulse Rate 92 H 95 H 96 H Pulse Rate [ From Monitor] Respiratory 19 23 19 Rate Blood Pressure 137/86 134/77 127/65 O2 Sat by Pulse 98 93 94 Oximetry 12/25/20 12/25/20 12/25/20 06:15 06:30 06:45 Temperature Pulse Rate 96 H 101 H 95 H Pulse Rate [ From Monitor] Respiratory 21 25 H 24 Rate Blood Pressure 127/70 127/70 123/72 O2 Sat by Pulse 93 91 Oximetry 12/25/20 12/25/20 12/25/20 07:00 07:15 07:30 Temperature Pulse Rate 95 H 98 H 96 H Pulse Rate [ From Monitor] Respiratory 24 25 H 24 Rate Blood Pressure 127/70 123/72 125/69 O2 Sat by Pulse 95 92 94 Oximetry 12/25/20 12/25/20 12/25/20 07:46 07:53 07:57 Temperature 100.4 F H Pulse Rate 100 H 97 H Pulse Rate [ From Monitor] Respiratory 24 Rate Blood Pressure 124/73 113/68 O2 Sat by Pulse 94 95 Oximetry 12/25/20 12/25/20 12/25/20 08:00 08:15 08:30 Temperature 100.4 F H Pulse Rate 97 H 96 H 100 H Pulse Rate [ 117 H From Monitor] Respiratory 24 21 17 Rate Blood Pressure 123/69 133/57 127/70 O2 Sat by Pulse 93 93 93 Oximetry 12/25/20 12/25/20 12/25/20 08:45 09:00 09:15 Temperature Pulse Rate 98 H 99 H 97 H Pulse Rate [ From Monitor] Respiratory 22 24 24 Rate Blood Pressure 129/71 121/69 117/66 O2 Sat by Pulse 92 93 93 Oximetry 12/25/20 12/25/20 12/25/20 09:30 09:45 10:00 Temperature Pulse Rate 97 H 97 H 97 H Pulse Rate [ From Monitor] Respiratory 24 24 24 Rate Blood Pressure 122/70 119/69 121/70 O2 Sat by Pulse 93 94 93 Oximetry 12/25/20 12/25/20 12/25/20 10:15 10:30 10:45 Temperature Pulse Rate 96 H 96 H 116 H Pulse Rate [ From Monitor] Respiratory 24 24 24 Rate Blood Pressure 117/67 115/68 118/70 O2 Sat by Pulse 93 91 94 Oximetry - General physical appearance Narrative Exam: Gen.: Intubated and sedated on the ventilator. ENT: NG tube with thick yellow output. ET tube in place. Trachea midline. No lymphadenopathy. No scleral icterus or conjunctival pallor CV: S1, S2 present Respiratory: No audible wheezes Abdomen: Soft, nondistended, nontender. ABThera VAC in place draining light serosanguineous fluid, there is a good seal and no leak. Extremities: Generalized edema : Haley in place with clear yellow urine - Labs 12/25/20 07:00 12/25/20 07:00 Diabetes panel 12/25/20 Range/Units 07:00 Sodium 156 H (137-145) mmol/L Potassium 4.2 (3.6-5.0) mmol/L Chloride 118.0 H (98-107) mmol/L Carbon Dioxide 30 (22-30) mmol/L BUN 44 H (9-20) mg/dL Creatinine 1.7 H (0.8-1.3) mg/dL Glucose 126 H (75-100) mg/dL Calcium 6.9 L (8.4-10.2) mg/dL Calcium panel 12/25/20 12/25/20 Range/Units 07:00 07:00 Calcium 6.9 L (8.4-10.2) mg/dL Phosphorus 3.00 D (2.5-4.5) mg/dL Pituitary panel 12/25/20 Range/Units 07:00 Sodium 156 H (137-145) mmol/L Potassium 4.2 (3.6-5.0) mmol/L Chloride 118.0 H (98-107) mmol/L Carbon Dioxide 30 (22-30) mmol/L BUN 44 H (9-20) mg/dL Creatinine 1.7 H (0.8-1.3) mg/dL Glucose 126 H (75-100) mg/dL Calcium 6.9 L (8.4-10.2) mg/dL Adrenal panel 12/25/20 Range/Units 07:00 Sodium 156 H (137-145) mmol/L Potassium 4.2 (3.6-5.0) mmol/L Chloride 118.0 H (98-107) mmol/L Carbon Dioxide 30 (22-30) mmol/L BUN 44 H (9-20) mg/dL Creatinine 1.7 H (0.8-1.3) mg/dL Glucose 126 H (75-100) mg/dL Calcium 6.9 L (8.4-10.2) mg/dL
--- NOTE | 2020-12-25 12:23 | Event Note ---
I called the patient's mother Nita Fernandez at [phone] and left a voicemail requesting a call back to [phone].
[2020-12-25] MEDS ORDERED: LACTATED RINGERS 1,000 ML ONE (13:06)
[2020-12-25] MEDS ORDERED: LACTATED RINGERS 1,000 ML IV SCH (13:15)
[2020-12-25] MEDS: FLUCONAZOLE 400 MG 200 ML IV SCH (13:24)
[2020-12-25 18:51] LABS: Calcium 6.4 mg/dL (8.4-10.2)
[2020-12-25] MEDS ORDERED: TOTAL PARENTERAL NUTRITION 2,400 ML IV SCH (20:00)
[2020-12-25] MEDS: ACETAMINOPHEN 650 MG RECT SUPP PR PRN (20:35)
[2020-12-26] MEDS: fentaNYL DRIP Premix 2,000 MCG/100 ML BAG IV SCH ×6 (01:08→20:35)
[2020-12-26] MEDS: INSULIN REGULAR, HUMAN 100 UNITS/1 ML SUB-Q SCH ×5 (05:47→23:52)
[2020-12-26] MEDS: DEXTROSE 5% IN WATER 1,000 ML IV SCH ×2 (06:07→20:37)
[2020-12-26 06:24] LABS: Hematocrit 38.3 % (35.5-45.6); Hemoglobin 11.9 gm/dl (11.8-15.2); Mean Corpuscular HGB Conc 31 % (32-34); Mean Corpuscular Volume 90 fl (84-94); Red Blood Count 4.24 M/mm3 (3.65-5.03); Red Cell Distribution Width 16.5 % (13.2-15.2)
[2020-12-26 06:30] LABS: Platelet Count 136 K/mm3 (140-440)
[2020-12-26 06:40] LABS: Calcium 6.2 mg/dL (8.4-10.2)
[2020-12-26] MEDS: PIPERACIL/TAZOBACTA 4.5/NS 100 4.5 GM/100 ML VIAL IV SCH ×2 (06:45→18:06)
[2020-12-26 09:44] LABS: Calcium 6.5 mg/dL (8.4-10.2)
--- NOTE | 2020-12-26 09:55 | Progress Note ---
Assessment and Plan Impression * Acute kidney injury. Most likely prerenal with additional tubular injury as well * Incarcerated hernia with ischemic bowel. Status post bowel resection * Hypernatremia * Sepsis * Respiratory failure Recommendations * Acute kidney injury most likely prerenal, now with likely tubular injury. His urine shows trace protein and only 2 RBCs per high-power field. Fractional excretion of sodium is 0.2% . His baseline creatinine is approximately 0.7. Creatinine worsened from 2.6->3.8 * Initial electrolytes this AM likely false, repeat labs show more appropriate sodium and K * Agree with ongoing IV hydration. May need to add 1/2NS to encourage renal perfusion to D5W, for now will monitor on TPN and D5W. Creatinine may also t ransiently rise in setting of protein load from TPN * Patient currently has indwelling Lawrence catheter in place and is also nonoliguric. * Continue hypotonic IV fluid. Minimize sodium content of TPN * Pressors to maintain MAP greater than 65 * Avoid nephrotoxins * Monitor fluid status and electrolytes closely Subjective Date of service: 12/26/20 Interval history: Patient remains on the ventilator. Currently on 50% FiO2. Unresponsive and sedated. He is also on a Levophed drip. On D5W at 100cc/hr, on TPN at 100cc/hr. Objective - Exam Narrative Exam: General appearance: ill appearing appears stated age, intubated EENT: PERRL, mucous membranes moist Neck: no JVD Respiratory: Present: Ronchi (Few scattered rhonchi) Cardiology: regular, normal heart rate Gastrointestinal: other (Midline incision noted. Wound VAC in place.) Integumentary: other (No edema) - Vital Signs Vital signs: Vital Signs - 12hr 12/25/20 12/25/20 12/25/20 22:00 22:15 22:30 Temperature Pulse Rate 91 H 91 H 91 H Pulse Rate [ From Monitor] Respiratory 14 22 24 Rate Blood Pressure 105/61 108/60 116/65 O2 Sat by Pulse 94 93 94 Oximetry 12/25/20 12/25/20 12/25/20 22:45 23:00 23:15 Temperature Pulse Rate 91 H 90 89 Pulse Rate [ From Monitor] Respiratory 24 24 24 Rate Blood Pressure 111/64 112/60 111/64 O2 Sat by Pulse 94 94 94 Oximetry 12/25/20 12/25/20 12/25/20 23:30 23:35 23:45 Temperature 101 F H Pulse Rate 90 90 Pulse Rate [ From Monitor] Respiratory 11 L 24 Rate Blood Pressure 110/63 114/65 O2 Sat by Pulse 94 95 Oximetry 12/26/20 12/26/20 12/26/20 00:00 00:15 00:30 Temperature Pulse Rate 90 90 90 Pulse Rate [ 90 From Monitor] Respiratory 21 24 21 Rate Blood Pressure 112/63 114/67 110/62 O2 Sat by Pulse 97 94 94 Oximetry 12/26/20 12/26/20 12/26/20 00:45 01:00 01:15 Temperature Pulse Rate 92 H 89 90 Pulse Rate [ From Monitor] Respiratory 24 21 21 Rate Blood Pressure 101/56 113/64 112/62 O2 Sat by Pulse 93 94 Oximetry 12/26/20 12/26/20 12/26/20 01:30 01:45 02:00 Temperature Pulse Rate 90 91 H 90 Pulse Rate [ From Monitor] Respiratory 21 21 24 Rate Blood Pressure 113/67 109/62 111/62 O2 Sat by Pulse 95 94 94 Oximetry 12/26/20 12/26/20 12/26/20 02:15 02:30 02:45 Temperature Pulse Rate 90 89 90 Pulse Rate [ From Monitor] Respiratory 24 21 24 Rate Blood Pressure 110/65 109/63 109/64 O2 Sat by Pulse 94 96 95 Oximetry 12/26/20 12/26/20 12/26/20 03:00 03:15 03:30 Temperature Pulse Rate 91 H 90 110 H Pulse Rate [ From Monitor] Respiratory 22 24 24 Rate Blood Pressure 110/63 111/62 118/68 O2 Sat by Pulse 94 94 95 Oximetry 12/26/20 12/26/20 12/26/20 03:45 04:00 04:06 Temperature 100.1 F H Pulse Rate 109 H 109 H 109 H Pulse Rate [ 109 H From Monitor] Respiratory 24 18 Rate Blood Pressure 116/66 108/64 108/64 O2 Sat by Pulse 95 93 95 Oximetry 12/26/20 12/26/20 12/26/20 04:15 04:30 04:45 Temperature Pulse Rate 110 H 109 H 109 H Pulse Rate [ From Monitor] Respiratory 20 19 12 Rate Blood Pressure 113/66 113/67 114/68 O2 Sat by Pulse 93 93 Oximetry 12/26/20 12/26/20 12/26/20 05:00 05:15 05:30 Temperature Pulse Rate 108 H 107 H 110 H Pulse Rate [ From Monitor] Respiratory 24 19 24 Rate Blood Pressure 114/68 114/68 113/69 O2 Sat by Pulse 94 95 93 Oximetry 12/26/20 12/26/20 12/26/20 05:45 06:01 06:15 Temperature Pulse Rate 110 H 109 H 109 H Pulse Rate [ From Monitor] Respiratory 24 23 15 Rate Blood Pressure 115/71 104/71 115/67 O2 Sat by Pulse 95 94 95 Oximetry 12/26/20 12/26/20 12/26/20 06:30 06:45 07:00 Temperature Pulse Rate 108 H 109 H 107 H Pulse Rate [ From Monitor] Respiratory 18 24 25 H Rate Blood Pressure 123/73 117/68 121/72 O2 Sat by Pulse 93 94 Oximetry 12/26/20 12/26/20 12/26/20 07:15 07:27 07:30 Temperature Pulse Rate 92 H 93 H 92 H Pulse Rate [ From Monitor] Respiratory 22 19 Rate Blood Pressure 115/69 107/61 113/65 O2 Sat by Pulse 94 96 95 Oximetry 12/26/20 12/26/20 12/26/20 07:45 08:00 08:15 Temperature 99.7 F H Pulse Rate 94 H 94 H 93 H Pulse Rate [ From Monitor] Respiratory 20 24 24 Rate Blood Pressure 121/74 106/61 108/64 O2 Sat by Pulse 93 94 Oximetry 12/26/20 12/26/20 12/26/20 08:30 08:45 09:00 Temperature Pulse Rate 93 H 93 H 93 H Pulse Rate [ From Monitor] Respiratory 24 24 24 Rate Blood Pressure 108/65 115/66 108/67 O2 Sat by Pulse 94 94 94 Oximetry 12/26/20 09:15 Temperature Pulse Rate 93 H Pulse Rate [ From Monitor] Respiratory 24 Rate Blood Pressure 111/64 O2 Sat by Pulse 94 Oximetry - Lab 12/26/20 06:01 12/26/20 08:33 Most recent lab results ABG pH 7.365 (7.320-7.450) 12/26/20 03:30 ABG pCO2 51.0 mm Hg 12/20/20 21:30 ABG pO2 104.4 mm Hg (80.0-90.0) H 12/20/20 21:30 ABG HCO3 25.3 mmol/L (20.0-26.0) 12/20/20 21:30 ABG O2 Saturation 97.1 (0-100) 12/26/20 03:30 Calcium 6.5 mg/dL (8.4-10.2) L 12/26/20 08:33 Phosphorus 5.70 mg/dL (2.5-4.5) H D 12/26/20 06:01 Magnesium 2.90 mg/dL (1.7-2.3) H 12/26/20 06:01 Urine Creatinine 78.1 mg/dL (0.1-20.0) H 12/23/20 12:15 Urine Sodium 13 mmol/L 12/23/20 12:15 Medications & Allergies - Medications Allergies/Adverse Reactions: Allergies Iodinated Contrast Media Adverse Reaction (Verified 09/04/18 14:20) Unknown Home Medications: Home Medications Medication Instructions Recorded Confirmed Last Taken Type Aspirin 81 mg PO DAILY #30 tab.chew 09/08/18 09/12/20 03/31/20 09:28 Rx AtorvaSTATin [Lipitor] 80 mg PO QHS tablet 05/08/19 09/12/20 03/28/20 Rx Albuterol Sulfate [Proventil Hfa] 13.4 gm IH Q6H #1 hfa.aer.ad 04/01/20 09/12/20 Unknown Rx Clopidogrel [Plavix] 75 mg PO DAILY #30 tablet 04/01/20 09/12/20 Unknown Rx Gabapentin 300 mg PO BID@0700,1800 30 Days 04/01/20 09/12/20 Unknown Rx capsule Gabapentin 600 mg PO QHS 30 Days capsule 04/01/20 09/12/20 Unknown Rx Metoprolol [Lopressor TAB] 25 mg PO BID #60 tablet 04/01/20 09/12/20 Unknown Rx Concho-3/Dha/Epa/Fish Oil [Concho 3 1 each PO BID #60 capsule 04/01/20 09/12/20 Un known Rx 500 Softgel] Tiotropium [place] [Spiriva] 2 puff IH DAILY #30 cap.w.dev 04/01/20 09/12/20 Unknown Rx Ubidecarenone [Co Q-10] 10 mg PO BID #60 tab 04/01/20 09/12/20 03/29/20 Rx cilostazoL [Pletal] 50 mg PO BID 30 Days tablet 04/01/20 09/12/20 Unknown Rx oxyCODONE /ACETAMINOPHEN [Percocet 2 tab PO Q6H PRN tablet 04/01/20 09/12/20 Unknown Rx 5/325 mg] Phosphorus #1 [K-Phos Neutral] 250 mg PO QID 2 Days #8 tablet 09/14/20 Unknown Rx Active Medications: Generic Name Dose Route Start Last Admin Trade Name Freq PRN Reason Stop Dose Admin Acetaminophen 650 mg 12/21/20 11:51 12/25/20 20:35 Acetaminophen 650 Mg Rect Supp [place] 650 mg Q4H PRN Administration TEMP >/=100.4 Dextrose 50 ml 12/24/20 10:49 Dextrose 50% In Water (25gm) 50 Ml Syringe IV Q30MIN PRN Hypoglycemia Protocol Famotidine 20 mg 12/26/20 10:00 Famotidine 20 Mg/2 Ml Inj IV DAILY [facility] Fentanyl 50 mcg 12/20/20 21:58 12/21/20 03:46 Fentanyl 100 Mcg/2 Ml Inj IV 50 mcg Q10MIN PRN Administration ANALGESIA Hydrophilic Ointment 1 applic 12/20/20 21:58 Lip Therapy Vaseline TP Q2HR PRN Dry Lips Fentanyl Citrate 2,000 mcg in 100 mls @ 6.01 mls/hr 12/20/20 22:00 12/26/20 06:54 Fentanyl Drip Premix IV 5 mcg/kg/hr TITR [facility] 30.051 mls/hr Administration Protocol 1 MCG/KG/HR Propofol 1,000 mg in 100 mls @ 3.606 mls/hr 12/20/20 22:00 12/26/20 04:40 Diprivan 10 Mg/Ml IV 40 mcg/kg/min TITR [facility] 28.848 mls/hr Administration Protocol 5 MCG/KG/MIN NORepinephrine/NS 8 MG-250 ML 8 mg in 250 mls @ 3.75 mls/hr 12/21/20 09:00 12/26/20 08:00 Norepinephrine/Ns 8 Mg-250 Ml (Double Conc) IV Infused TITRATE [facility] Titration Protocol 2 MCG/MIN Vasopressin 20 unit/ Sodium 101 mls @ 9.09 mls/hr 12/24/20 09:00 Chloride IV TITR [facility] Protocol 0.03 UNITS/MIN Amino Acids/Electrolytes/Dextrose 2,400 mls @ 100 mls/hr 12/25/20 20:00 12/25/20 20:33 Tpn Adult IV 12/26/20 19:59 100 mls/hr DAILY@2000 [facility] Administration Protocol Lactated Ringer's 1,000 mls @ 999 mls/hr 12/25/20 13:15 12/25/20 16:05 Lactated Ringers IV 12/26/20 14:16 Infused BOLUS [facility] Infusion Dextrose 1,000 mls @ 100 mls/hr 12/25/20 14:00 12/26/20 06:07 D5w IV 100 mls/hr DIRECT [facility] Administration Piperacillin Sod/Tazobactam Sod 4.5 gm in 100 mls @ 200 mls/hr 12/26/20 18:00 Zosyn/Ns 4.5gm/100ml IV Q12H [facility] Protocol Fluconazole 200 mg in 100 mls @ 100 mls/hr 12/26/20 10:00 Diflucan IV Q24H [facility] Protocol Insulin Human Regular 0 units 12/24/20 11:00 12/26/20 05:47 Insulin Regular, Human 100 Units/1 Ml SUB-Q Not Given Q6H [facility] Protocol Multi-Ingred Cream/Lotion/Oil/Oint 1 applic 12/20/20 21:58 Mineral Oil/Petrolatum, White Ophth Oint 3.5 Gm OU Q4HR PRN Dry Eye(s) Senna/Docusate Sodium 1 tab 12/20/20 22:00 12/25/20 21:34 Sennosides/Docusate Sodium 8.6/50 Mg Tab FEEDTUBE Not Given BID [facility] Sodium Chloride 10 ml 12/20/20 22:00 12/25/20 21:36 Sodium Chloride 0.9% 10 Ml Flush Syringe IV 10 ml BID [facility] Administration Sodium Chloride 10 ml 12/20/20 16:42 Sodium Chloride 0.9% 10 Ml Flush Syringe IV PRN PRN LINE FLUSH
[2020-12-26] MEDS: SENNOSIDES/DOCUSATE SODIUM 8.6/50 MG TAB FEEDTUBE SCH (10:02)
[2020-12-26] MEDS: NORepinephrine/NS 8 MG-250 ML 8 MG/250 ML INFUS..BTL IV SCH ×2 (10:03→20:37)
[2020-12-26] MEDS: FLUCONAZOLE 200 MG 200 MG/100 ML BAG IV SCH (10:08)
[2020-12-26] MEDS: FAMOTIDINE 20 MG/2 ML INJ IV SCH (10:09)
[2020-12-26] MEDS: LACTATED RINGERS 1,000 ML IV SCH ×4 (11:15→18:19)
--- NOTE | 2020-12-26 11:38 | Progress Note ---
Assessment and Plan 60 y/o male with abdominal catastrophe, s/p ex-lap with open abdomen, ventilated for pain control and support. 12/26/20: Needs more hydration. Appreciate renal help but will bolus several liters today as I feel the patient is very volume deplete and with persistent fever we have insensible losses as well. Continue TPN. OR today. Wean pressors for MAPs greater than 65. Follow up triglyceride level. Some hypotension is likely related to amount of sedation required to maintain rass of -4. If third agent is needed, could use precedex, ativan etc..Guarded prognosis. 12/25/20: Down to 14 on Levo now. Fluid appears to have helped. Renal following so will defer further bolus types to them but would recommend more fluid. Josiah nue sedation at current level. TPN for nutrition. Plans for return to OR on Saturday. Continue all supportive measures. 12/24/20: Adequate sedation to maintain RASS of -4. BP support as needed with p ressors. Will give more fluid today. Renal function improving. Agree with D5W but Na will be corrected in TPN as well. TPN per nutrition. Supportive care. 1. Adequate sedation to RASS of -4 2 Support BP with meds as needed 3. Aggressive hydration 4. Follow up surgery recs. cct 31 minutes. Subjective Date of service: 12/26/20 Interval history: Worsening renal function today. Still making urine but very little. Still h ypotensive on pressors as well. Going back to OR today. having a large amount of output from drains as well. Also continues to be febrile. Objective Vital Signs - 12hr 12/25/20 12/25/20 12/26/20 23:35 23:45 00:00 Temperature 101 F H Pulse Rate 90 90 Pulse Rate [ 90 From Monitor] Respiratory 24 21 Rate Blood Pressure 114/65 112/63 O2 Sat by Pulse 95 97 Oximetry 12/26/20 12/26/20 12/26/20 00:15 00:30 00:45 Temperature Pulse Rate 90 90 92 H Pulse Rate [ From Monitor] Respiratory 24 21 24 Rate Blood Pressure 114/67 110/62 101/56 O2 Sat by Pulse 94 94 93 Oximetry 12/26/20 12/26/20 12/26/20 01:00 01:15 01:30 Temperature Pulse Rate 89 90 90 Pulse Rate [ From Monitor] Respiratory 21 21 21 Rate Blood Pressure 113/64 112/62 113/67 O2 Sat by Pulse 94 95 Oximetry 12/26/20 12/26/20 12/26/20 01:45 02:00 02:15 Temperature Pulse Rate 91 H 90 90 Pulse Rate [ From Monitor] Respiratory 21 24 24 Rate Blood Pressure 109/62 111/62 110/65 O2 Sat by Pulse 94 94 94 Oximetry 12/26/20 12/26/20 12/26/20 02:30 02:45 03:00 Temperature Pulse Rate 89 90 91 H Pulse Rate [ From Monitor] Respiratory 21 24 22 Rate Blood Pressure 109/63 109/64 110/63 O2 Sat by Pulse 96 95 94 Oximetry 12/26/20 12/26/20 12/26/20 03:15 03:30 03:45 Temperature 100.1 F H Pulse Rate 90 110 H 109 H Pulse Rate [ From Monitor] Respiratory 24 24 24 Rate Blood Pressure 111/62 118/68 116/66 O2 Sat by Pulse 94 95 95 Oximetry 12/26/20 12/26/20 12/26/20 04:00 04:06 04:15 Temperature Pulse Rate 109 H 109 H 110 H Pulse Rate [ 109 H From Monitor] Respiratory 18 20 Rate Blood Pressure 108/64 108/64 113/66 O2 Sat by Pulse 93 95 93 Oximetry 12/26/20 12/26/20 12/26/20 04:30 04:45 05:00 Temperature Pulse Rate 109 H 109 H 108 H Pulse Rate [ From Monitor] Respiratory 19 12 24 Rate Blood Pressure 113/67 114/68 114/68 O2 Sat by Pulse 93 94 Oximetry 12/26/20 12/26/20 12/26/20 05:15 05:30 05:45 Temperature Pulse Rate 107 H 110 H 110 H Pulse Rate [ From Monitor] Respiratory 19 24 24 Rate Blood Pressure 114/68 113/69 115/71 O2 Sat by Pulse 95 93 95 Oximetry 12/26/20 12/26/20 12/26/20 06:01 06:15 06:30 Temperature Pulse Rate 109 H 109 H 108 H Pulse Rate [ From Monitor] Respiratory 23 15 18 Rate Blood Pressure 104/71 115/67 123/73 O2 Sat by Pulse 94 95 Oximetry 12/26/20 12/26/20 12/26/20 06:45 07:00 07:15 Temperature Pulse Rate 109 H 107 H 92 H Pulse Rate [ From Monitor] Respiratory 24 25 H 22 Rate Blood Pressure 117/68 121/72 115/69 O2 Sat by Pulse 93 94 94 Oximetry 12/26/20 12/26/20 12/26/20 07:27 07:30 07:45 Temperature Pulse Rate 93 H 92 H 94 H Pulse Rate [ From Monitor] Respiratory 19 20 Rate Blood Pressure 107/61 113/65 121/74 O2 Sat by Pulse 96 95 Oximetry 12/26/20 12/26/20 12/26/20 08:00 08:15 08:30 Temperature 99.7 F H Pulse Rate 94 H 93 H 93 H Pulse Rate [ From Monitor] Respiratory 24 24 24 Rate Blood Pressure 106/61 108/64 108/65 O2 Sat by Pulse 93 94 94 Oximetry 12/26/20 12/26/20 12/26/20 08:45 09:00 09:15 Temperature Pulse Rate 93 H 93 H 93 H Pulse Rate [ From Monitor] Respiratory 24 24 24 Rate Blood Pressure 115/66 108/67 111/64 O2 Sat by Pulse 94 94 94 Oximetry 12/26/20 12/26/20 12/26/20 09:30 09:45 10:00 Temperature Pulse Rate 93 H 94 H 94 H Pulse Rate [ From Monitor] Respiratory 24 24 24 Rate Blood Pressure 107/64 107/62 110/68 O2 Sat by Pulse 95 94 Oximetry 12/26/20 12/26/20 12/26/20 10:15 10:30 10:45 Temperature Pulse Rate 94 H 94 H 96 H Pulse Rate [ From Monitor] Respiratory 24 24 24 Rate Blood Pressure 110/71 107/63 100/59 O2 Sat by Pulse 95 92 93 Oximetry 12/26/20 12/26/20 11:00 11:15 Temperature Pulse Rate 96 H 98 H Pulse Rate [ From Monitor] Respiratory 24 24 Rate Blood Pressure 101/59 102/59 O2 Sat by Pulse 94 Oximetry CBC and BMP: 12/26/20 06:01 12/26/20 08:33 ABG, PT/INR, D-dimer: ABG ABG pH 7.365 (7.320-7.450) 12/26/20 03:30 POC ABG pCO2 44.9 mmHg (32.0-48.0) 12/26/20 03:30 ABG pCO2 51.0 mm Hg 12/20/20 21:30 POC ABG pO2 101.7 mmHg (83-108) 12/26/20 03:30 ABG pO2 104.4 mm Hg (80.0-90.0) H 12/20/20 21:30 POC ABG HCO3 25.1 12/26/20 03:30 ABG O2 Saturation 97.1 (0-100) 12/26/20 03:30 Abnormal lab findings: Abnormal Labs 12/20/20 12/20/20 12/20/20 13:58 13:58 13:58 WBC 41.1 H* RBC 5.59 H Hgb 16.2 H Hct 47.7 H MCHC RDW 15.5 H Plt Count 486 H Seg Neuts % (Manual) Lymphocytes % (Manual) Seg Neutrophils # Man Lymphocytes # (Manual) Monocytes # (Manual) APTT ABG pH POC ABG pO2 ABG pO2 ABG Hemoglobin ABG Sodium ABG Potassium ABG Chloride ABG Glucose Carboxyhemoglobin Sodium 130 L Potassium Chloride 80.7 L BUN 37 H Creatinine Glucose 101 H POC Glucose Lactic Acid 3.20 H* Calcium Ionized Calcium Phosphorus Magnesium Alkaline Phosphatase 142 H Total Protein 6.2 L Albumin 2.2 L Arterial Blood Glucose Arterial Blood Ionized Calcium Urine Creatinine 12/20/20 12/20/20 12/20/20 13:58 20:35 21:30 WBC RBC Hgb Hct MCHC RDW Plt Count Seg Neuts % (Manual) Lymphocytes % (Manual) Seg Neutrophils # Man Lymphocytes # (Manual) Monocytes # (Manual) APTT 49.4 H ABG pH 7.313 L POC ABG pO2 ABG pO2 104.4 H ABG Hemoglobin ABG Sodium ABG Potassium ABG Chloride ABG Glucose Carboxyhemoglobin Sodium Potassium Chloride BUN Creatinine Glucose POC Glucose 122 H Lactic Acid Calcium Ionized Calcium Phosphorus Magnesium Alkaline Phosphatase Total Protein Albumin Arterial Blood Glucose Arterial Blood Ionized Calcium Urine Creatinine 12/21/20 12/21/20 12/21/20 03:06 08:14 08:14 WBC 23.9 H RBC Hgb Hct MCHC RDW 15.7 H Plt Count Seg Neuts % (Manual) 91.0 H Lymphocytes % (Manual) 3.0 L Seg Neutrophils # Man 21.7 H Lymphocytes # (Manual) 0.7 L Monocytes # (Manual) 1.4 H APTT ABG pH 7.464 H POC ABG pO2 202.9 H ABG pO2 ABG Hemoglobin ABG Sodium 133.7 L ABG Potassium ABG Chloride ABG Glucose 122 H Carboxyhemoglobin Sodium Potassium Chloride BUN 46 H Creatinine Glucose 103 H POC Glucose Lactic Acid Calcium 6.6 L D Ionized Calcium Phosphorus Magnesium Alkaline Phosphatase Total Protein 5.4 L Albumin 2.3 L Arterial Blood Glucose 122 H Arterial Blood Ionized Calcium 3.5 L Urine Creatinine 12/21/20 12/21/20 12/22/20 17:18 21:28 04:45 WBC 22.9 H RBC Hgb Hct MCHC RDW 15.7 H Plt Count Seg Neuts % (Manual) Lymphocytes % (Manual) Seg Neutrophils # Man Lymphocytes # (Manual) Monocytes # (Manual) APTT ABG pH POC ABG pO2 ABG pO2 ABG Hemoglobin ABG Sodium ABG Potassium ABG Chloride ABG Glucose Carboxyhemoglobin Sodium Potassium Chloride BUN Creatinine Glucose POC Glucose 108 H Lactic Acid Calcium Ionized Calcium 4.1 L Phosphorus Magnesium Alkaline Phosphatase Total Protein Albumin Arterial Blood Glucose Arterial Blood Ionized Calcium Urine Creatinine 12/22/20 12/22/20 12/22/20 04:45 05:00 11:38 WBC RBC Hgb Hct MCHC RDW Plt Count Seg Neuts % (Manual) Lymphocytes % (Manual) Seg Neutrophils # Man Lymphocytes # (Manual) Monocytes # (Manual) APTT ABG pH 7.462 H POC ABG pO2 ABG pO2 ABG Hemoglobin ABG Sodium ABG Potassium ABG Chloride ABG Glucose 118 H Carboxyhemoglobin Sodium 146 H Potassium Chloride BUN 45 H Creatinine Glucose 116 H POC Glucose 115 H Lactic Acid Calcium 6.9 L Ionized Calcium Phosphorus Magnesium Alkaline Phosphatase Total Protein Albumin Arterial Blood Glucose 118 H Arterial Blood Ionized Calcium 3.8 L Urine Creatinine 12/22/20 12/23/20 12/23/20 23:26 04:43 04:45 WBC 22.2 H RBC Hgb Hct MCHC RDW 16.1 H Plt Count Seg Neuts % (Manual) Lymphocytes % (Manual) Seg Neutrophils # Man Lymphocytes # (Manual) Monocytes # (Manual) APTT ABG pH POC ABG pO2 ABG pO2 ABG Hemoglobin ABG Sodium 147.4 H ABG Potassium ABG Chloride 112.0 H ABG Glucose 130 H Carboxyhemoglobin 0.4 L Sodium Potassium Chloride BUN Creatinine Glucose POC Glucose 110 H Lactic Acid Calcium Ionized Calcium Phosphorus Magnesium Alkaline Phosphatase Total Protein Albumin Arterial Blood Glucose 130 H Arterial Blood Ionized Calcium 3.8 L Urine Creatinine 12/23/20 12/23/20 12/23/20 04:45 05:17 11:22 WBC RBC Hgb Hct MCHC RDW Plt Count Seg Neuts % (Manual) Lymphocytes % (Manual) Seg Neutrophils # Man Lymphocytes # (Manual) Monocytes # (Manual) APTT ABG pH POC ABG pO2 ABG pO2 ABG Hemoglobin ABG Sodium ABG Potassium ABG Chloride ABG Glucose Carboxyhemoglobin Sodium 154 H D Potassium Chloride 110.9 H BUN 54 H Creatinine 1.8 H Glucose 115 H POC Glucose 116 H 130 H Lactic Acid Calcium 7.0 L Ionized Calcium Phosphorus Magnesium Alkaline Phosphatase Total Protein Albumin Arterial Blood Glucose Arterial Blood Ionized Calcium Urine Creatinine 12/23/20 12/23/20 12/23/20 12:15 12:15 23:15 WBC RBC Hgb Hct MCHC RDW Plt Count Seg Neuts % (Manual) Lymphocytes % (Manual) Seg Neutrophils # Man Lymphocytes # (Manual) Monocytes # (Manual) APTT ABG pH POC ABG pO2 ABG pO2 ABG Hemoglobin ABG Sodium ABG Potassium ABG Chloride ABG Glucose Carboxyhemoglobin Sodium 154 H Potassium Chloride BUN Creatinine 1.5 H Glucose POC Glucose 132 H Lactic Acid Calcium Ionized Calcium Phosphorus Magnesium Alkaline Phosphatase Total Protein Albumin Arterial Blood Glucose Arterial Blood Ionized Calcium Urine Creatinine 78.1 H 12/24/20 12/24/20 12/24/20 04:19 04:30 04:30 WBC 18.3 H RBC Hgb Hct MCHC RDW 16.5 H Plt Count Seg Neuts % (Manual) Lymphocytes % (Manual) Seg Neutrophils # Man Lymphocytes # (Manual) Monocytes # (Manual) APTT ABG pH POC ABG pO2 ABG pO2 ABG Hemoglobin ABG Sodium 149.7 H ABG Potassium ABG Chloride 116.0 H ABG Glucose 180 H Carboxyhemoglobin Sodium 155 H Potassium Chloride 116.1 H BUN 52 H Creatinine 1.5 H Glucose 175 H POC Glucose Lactic Acid Calcium 6.8 L Ionized Calcium Phosphorus Magnesium 3.00 H Alkaline Phosphatase Total Protein 5.7 L Albumin 1.8 L Arterial Blood Glucose 180 H Arterial Blood Ionized Calcium 3.7 L Urine Creatinine 12/24/20 12/24/20 12/24/20 05:24 11:21 18:05 WBC RBC Hgb Hct MCHC RDW Plt Count Seg Neuts % (Manual) Lymphocytes % (Manual) Seg Neutrophils # Man Lymphocytes # (Manual) Monocytes # (Manual) APTT ABG pH POC ABG pO2 ABG pO2 ABG Hemoglobin ABG Sodium ABG Potassium ABG Chloride ABG Glucose Carboxyhemoglobin Sodium Potassium Chloride BUN Creatinine Glucose POC Glucose 153 H 154 H 133 H Lactic Acid Calcium Ionized Calcium Phosphorus Magnesium Alkaline Phosphatase Total Protein Albumin Arterial Blood Glucose Arterial Blood Ionized Calcium Urine Creatinine 12/25/20 12/25/20 12/25/20 04:00 07:00 07:00 WBC 17.6 H RBC Hgb Hct MCHC 31 L RDW 16.0 H Plt Count Seg Neuts % (Manual) Lymphocytes % (Manual) Seg Neutrophils # Man Lymphocytes # (Manual) Monocytes # (Manual) APTT ABG pH POC ABG pO2 ABG pO2 ABG Hemoglobin ABG Sodium 152.5 H ABG Potassium ABG Chloride 119.0 H ABG Glucose 136 H Carboxyhemoglobin Sodium Potassium Chloride BUN Creatinine Glucose POC Glucose Lactic Acid Calcium Ionized Calcium Phosphorus Magnesium 2.70 H Alkaline Phosphatase Total Protein Albumin Arterial Blood Glucose 136 H Arterial Blood Ionized Calcium 3.7 L Urine Creatinine 12/25/20 12/25/20 12/25/20 07:00 11:24 16:32 WBC RBC Hgb Hct MCHC RDW Plt Count Seg Neuts % (Manual) Lymphocytes % (Manual) Seg Neutrophils # Man Lymphocytes # (Manual) Monocytes # (Manual) APTT ABG pH POC ABG pO2 ABG pO2 ABG Hemoglobin ABG Sodium ABG Potassium ABG Chloride ABG Glucose Carboxyhemoglobin Sodium 156 H Potassium Chloride 118.0 H BUN 44 H Creatinine 1.7 H Glucose 126 H POC Glucose 110 H 126 H Lactic Acid Calcium 6.9 L Ionized Calcium Phosphorus Magnesium Alkaline Phosphatase Total Protein Albumin Arterial Blood Glucose Arterial Blood Ionized Calcium Urine Creatinine 12/25/20 12/25/20 12/26/20 18:18 23:23 03:30 WBC RBC Hgb Hct MCHC RDW Plt Count Seg Neuts % (Manual) Lymphocytes % (Manual) Seg Neutrophils # Man Lymphocytes # (Manual) Monocytes # (Manual) APTT ABG pH POC ABG pO2 ABG pO2 ABG Hemoglobin 11.8 L ABG Sodium ABG Potassium 4.7 H ABG Chloride 114.0 H ABG Glucose 132 H Carboxyhemoglobin Sodium 151 H Potassium Chloride 114.3 H BUN 51 H Creatinine 2.6 H D Glucose 122 H POC Glucose 115 H Lactic Acid Calcium 6.4 L Ionized Calcium Phosphorus Magnesium Alkaline Phosphatase Total Protein Albumin Arterial Blood Glucose 132 H Arterial Blood Ionized Calcium 3.6 L Urine Creatinine 12/26/20 12/26/20 12/26/20 04:55 06:01 06:01 WBC 21.6 H RBC Hgb Hct MCHC 31 L RDW 16.5 H Plt Count 136 L Seg Neuts % (Manual) Lymphocytes % (Manual) Seg Neutrophils # Man Lymphocytes # (Manual) Monocytes # (Manual) APTT ABG pH POC ABG pO2 ABG pO2 ABG Hemoglobin ABG Sodium ABG Potassium ABG Chloride ABG Glucose Carboxyhemoglobin Sodium 173 H* D Potassium 6.1 H* D Chloride 137.0 H BUN 73 H Creatinine 3.8 H Glucose 125 H POC Glucose 112 H Lactic Acid Calcium 6.2 L Ionized Calcium Phosphorus 5.70 H D Magnesium 2.90 H Alkaline Phosphatase Total Protein Albumin Arterial Blood Glucose Arterial Blood Ionized Calcium Urine Creatinine 12/26/20 12/26/20 12/26/20 08:33 11:19 Unknown WBC RBC Hgb Hct MCHC RDW Plt Count Seg Neuts % (Manual) Lymphocytes % (Manual) Seg Neutrophils # Man Lymphocytes # (Manual) Monocytes # (Manual) APTT ABG pH POC ABG pO2 ABG pO2 ABG Hemoglobin ABG Sodium ABG Potassium ABG Chloride ABG Glucose Carboxyhemoglobin Sodium 147 H D Potassium Chloride 108.8 H BUN 68 H Creatinine 3.8 H Glucose 144 H POC Glucose 144 H Lactic Acid Calcium 6.5 L Ionized Calcium Phosphorus 5.60 H Magnesium Alkaline Phosphatase Total Protein Albumin Arterial Blood Glucose Arterial Blood Ionized Calcium Urine Creatinine
--- NOTE | 2020-12-26 11:48 | Progress Note ---
Assessment and Plan Assessment and plan: This is a 60-year-old male with obesity, hypertension, nicotine dependence, PVD s/p stent placement on dual antiplatelet therapy, hyperlipidemia, OA, GERD, ventral hernia and small bowel obstruction who was admitted with small bowel obstruction and peritonitis Septic Shock, POA (presented with leukocytosis, tachycardia, tachypnea,febrile and evidence of peritonitis) COVID-19 PUI, ruled out Small bowel obstruction with peritonitis Ventral hernia Leukocytosis Hypernatremia Hypercholremia Hypocalcemia Acute Kidney Injury Obesity Hypertension Nicotine dependence CAD s/p stent placement Hyperlipidemia Osteoarthritis GERD -[facility], surgery, infectious disease, nephrology consulted, appreciate recommend ations -12/20 CT abdomen/pelvis showed high-grade small bowel obstruction related to severe complex ventral abdominal wall hernias, progressed in appearance from prior exam from 09/12/2020 without evidence of pneumonitis or pneumoperitoneum, patchy bibasilar airspace disease concern for atypical infectious process/pneumonitis -12/20 s/p ex lap, extensive lysis of adhesions, small bowel resection (removal of 70 cm necrotic small bowel segment), peritoneal lavage and ABThera abdominal wound VAC placement -12/23 s/p abdominal exploration, small bowel resection, peritoneal lavage, ABThera wound VAC placement -IV abx per ID: Zosyn, fluconazole -NGT to LIWS -NPO for now, TPN -SSI, Accucheck q6 -Vasopressor support with levophed and vasopressin -MIVF per nephro -12/23 Fractional excretion of sodium calculated at 0.16 indicating prerenal state -COVID-19 PCR negative -On mechanical ventilation, wean as tolerated, VAP bundle -Sedated with propofol and analgesia with fentanyl drip -Trend CBC, BMP, Mg, Phos GI/DVT prophylaxis: PPI, SCDs to bilateral lower extremities while in bed, avoid chemical anticoagulation to cleared by surgery Disposition: ICU The high probability of a clinically significant, sudden or life threatening deterioration of the [multi] system(s) required my full and direct attention, intervention and personal management. The aggregate critical care time was [36] minutes. This time is in addition to time spent performing reported procedures but includes the following: [x] Data Review and interpretation [x] Patient assessment and monitoring of vital signs [x] Documentation [x] Medication orders and management History Interval history: This is a 60-year-old male with obesity, hypertension, nicotine dependence, PVD s/p stent placement on dual antiplatelet therapy, hyperlipidemia, OA, GERD, ventral hernia with SBO who presents to the emergency department on 12/20 with severe, diffuse, worsened with movement, slightly relieved with rest abdominal pain rated at 10/10 with decreased oral intake, nausea and multiple episodes of vomiting. Patient underwent a CT of his abdomen/pelvis and was found to have evidence of small bowel obstruction as well as clinical findings consistent with acute peritonitis. Patient was admitted to the hospital service with acute peritonitis and incarcerated ventral hernia with consults to [facility] and surgery. 12/21: Patient is status post ex lap, extensive lysis of adhesions, small bowel resection, peritoneal lavage and ABThera abdominal wound VAC placement by Dr. Tena and Dr. Brumfield on 12/20 with removal of a 70 cm segment of necrotic small bowel. Patient was intubated and sedated on propofol at the time of my examination on Assist-control, rate of 24, PEEP of 6, tidal volume of 550 and FiO2 35%. Patient needed to be deeply sedated and there was a became hypotensive. Patient was started on patient for support with Levophed and received bolus of IVF. 12/22: Patient was febrile to 103 and vancomycin and Diflucan were added by [facility] and infectious disease was consulted and they increased Zosyn and stop vancomycin. Patient was given additional 1 L bolus today for CVP goal of 10-12. At the time of examination patient was on Levophed, propofol and fentanyl CMV tidal volume 500, rate of 24, PEEP of 6 and FiO2 65%. Plan for OR tomorrow 12/23: Patient Cr/BUN noted to be increased and nephrology was consulted. ID decreased the zosyn dose d/r renal function. Urine studies ordered. Chromo placed today. LR boluses per [facility], TPN to be started. Fractional excretion of sodium calculated at 0.16 indicating prerenal state 12/24: Patient is status post abdominal exploration, small bowel resection of 4 to 5 cm segment of dusky small bowel, peritoneal lavage and ABThera wound VAC placement on 12/23 with surgery, leukocytosis and renal function is improving, worsening hypernatremia and hyperchloremia. Patient will be started on TPN today. We will place on SSI/Accu-Cheks every every 6 hours. Patient noted to be nearly maxed on Levophed and vasopressin was ordered. Remains sedated and on MV 12/25: Leukocytosis continues to improve, given Ca Gluconate today, Hypernatremia, Cr and hyperchorlemia slightly worsened today. Patient is sedated with propofol and fentanyl on CMV TV 500, Rate 24, Peep 6, FiO2 50%. He remains on levophed. Possible OR Saturday. 12/26 Patient presented with small bowel obstruction, is status post ex lap, extensive lysis of adhesions, small bowel resection, peritoneal lavage and ABThera abdominal wound VAC placement by Dr. Tena and Dr. Brumfield on 12/20 with removal of a 70 cm segment of necrotic small bowel. Was taken back to OR on 12/23 s/p Abdominal exploration, Small bowel resection, Peritoneal lavage, ABThera wound VAC placement. he is still having fever. Poss going to OR again today. Sepsis managed by ID. He is on Diflucan, Zosyn. He is on Levophed. History Interval history: This is a 60-year-old male with obesity, hypertension, nicotine dependence, PVD s/p stent placement on dual antiplatelet therapy, hyperlipidemia, OA, GERD, ventral hernia and small bowel obstruction who was admitted with small bowel obstruction and peritonitis. he is s/p ex lap, extensive lysis of adhesions, small bowel resection (removal of 70 cm necrotic small bowel segment), peritoneal lavage and ABThera abdominal wound VAC placement. Still having fever Still on vent Hospitalist Physical - Physical exam Narrative exam: General appearance: Present: obese, other (sedated on mv) - EENT Eyes: Present: PERRL ENT: poor dentition - Neck Neck: Absent: masses or JVD, cervical LAD - Respiratory Respiratory effort: normal Respiratory: bilateral: diminished - Cardiovascular Rhythm: regular Heart Sounds: Present: S1 & S2. Absent: systolic murmur, diastolic murmur - Extremities Extremities: no ischemia, pulses intact, pulses symmetrical, No edema, normal temperature, normal color - Abdominal General gastrointestinal: soft, absent bowel sounds - Integumentary Integumentary: Present: warm, dry - Psychiatric Psychiatric: other (sedated) - Neurologic Neurologic: other (sedated) - Allied Health Allied health no - Constitutional Vitals: Temp Pulse Resp BP Pulse Ox 99.7 F H 98 H 24 87/52 97 12/26/20 08:00 12/26/20 11:23 06/07/21 11:15 12/26/20 11:23 12/26/20 11:23 General appearance: Present: obese, other (sedated on mv) HEART Score - HEART Score Troponin: Troponin T < 0.010 ng/mL (0.00-0.029) 12/20/20 13:58 Results - Labs CBC & Chem 7: 12/26/20 06:01 12/26/20 08:33 Labs: Laboratory Last Values WBC 21.6 K/mm3 (4.5-11.0) H 12/26/20 06:01 RBC 4.24 M/mm3 (3.65-5.03) 12/26/20 06:01 Hgb 11.9 gm/dl (11.8-15.2) 12/26/20 06:01 Hct 38.3 % (35.5-45.6) 12/26/20 06:01 MCV 90 fl (84-94) 12/26/20 06:01 MCH 28 pg (28-32) 12/26/20 06:01 MCHC 31 % (32-34) L 12/26/20 06:01 RDW 16.5 % (13.2-15.2) H 12/26/20 06:01 Plt Count 136 K/mm3 (140-440) L 12/26/20 06:01 Add Manual Diff Complete 12/21/20 08:14 Total Counted 100 12/21/20 08:14 Seg Neutrophils % Surgery Attendant 12/21/20 08:14 Seg Neuts % (Manual) 91.0 % (40.0-70.0) H 12/21/20 08:14 Lymphocytes % (Manual) 3.0 % (13.4-35.0) L 12/21/20 08:14 Monocytes % (Manual) 6.0 % (0.0-7.3) 12/21/20 08:14 Nucleated RBC % Not Reportable 12/21/20 08:14 Seg Neutrophils # Man 21.7 K/mm3 (1.8-7.7) H 12/21/20 08:14 Band Neutrophils # 0.0 K/mm3 12/21/20 08:14 Lymphocytes # (Manual) 0.7 K/mm3 (1.2-5.4) L 12/21/20 08:14 Abs React Lymphs (Man) 0.0 K/mm3 12/21/20 08:14 Monocytes # (Manual) 1.4 K/mm3 (0.0-0.8) H 12/21/20 08:14 Eosinophils # (Manual) 0.0 K/mm3 (0.0-0.4) 12/21/20 08:14 Basophils # (Manual) 0.0 K/mm3 (0.0-0.1) 12/21/20 08:14 Metamyelocytes # 0.0 K/mm3 12/21/20 08:14 Myelocytes # 0.0 K/mm3 12/21/20 08:14 Promyelocytes # 0.0 K/mm3 12/21/20 08:14 Blast Cells # 0.0 K/mm3 12/21/20 08:14 WBC Morphology Not Reportable 12/21/20 08:14 Hypersegmented Neuts Not Reportable 12/21/20 08:14 Hyposegmented Neuts Not Reportable 12/21/20 08:14 Hypogranular Neuts Not Reportable 12/21/20 08:14 Smudge Cells Not Reportable 12/21/20 08:14 Toxic Granulation Not Reportable 12/21/20 08:14 Toxic Vacuolation Not Reportable 12/21/20 08:14 Dohle Bodies Not Reportable 12/21/20 08:14 Pelger-Huet Anomaly Not Reportable 12/21/20 08:14 Mirian Rods Not Reportable 12/21/20 08:14 Platelet Estimate Consistent w auto 12/21/20 08:14 Clumped Platelets Not Reportable 12/21/20 08:14 Plt Clumps, EDTA Not Reportable 12/21/20 08:14 Large Platelets Not Reportable 12/21/20 08:14 Giant Platelets Not Reportable 12/21/20 08:14 Platelet Satelliting Not Reportable 12/21/20 08:14 Plt Morphology Comment Not Reportable 12/21/20 08:14 RBC Morphology Normal 12/21/20 08:14 Dimorphic RBCs Not Reportable 12/21/20 08:14 Polychromasia Not Reportable 12/21/20 08:14 Hypochromasia Not Reportable 12/21/20 08:14 Poikilocytosis Not Reportable 12/21/20 08:14 Anisocytosis Not Reportable 12/21/20 08:14 Microcytosis Not Reportable 12/21/20 08:14 Macrocytosis Not Reportable 12/21/20 08:14 Spherocytes Not Reportable 12/21/20 08:14 Pappenheimer Bodies Not Reportable 12/21/20 08:14 Sickle Cells Not Reportable 12/21/20 08:14 Target Cells Not Reportable 12/21/20 08:14 Tear Drop Cells Not Reportable 12/21/20 08:14 Ovalocytes Not Reportable 12/21/20 08:14 Helmet Cells Not Reportable 12/21/20 08:14 [place] Bodies Not Reportable 12/21/20 08:14 [place] Rings Not Reportable 12/21/20 08:14 Jonathan Cells Not Reportable 12/21/20 08:14 Bite Cells Not Reportable 12/21/20 08:14 Crenated Cell Not Reportable 12/21/20 08:14 Elliptocytes Not Reportable 12/21/20 08:14 Acanthocytes (Spur) Not Reportable 12/21/20 08:14 Rouleaux Not Reportable 12/21/20 08:14 Hemoglobin C Crystals Not Reportable 12/21/20 08:14 Schistocytes Not Reportable 12/21/20 08:14 Malaria parasites Not Reportable 12/21/20 08:14 Dylon Bodies Not Reportable 12/21/20 08:14 Hem Pathologist Commnt No 12/21/20 08:14 APTT 49.4 Sec. (24.2-36.6) H 12/20/20 13:58 ABG pH 7.365 (7.320-7.450) 12/26/20 03:30 POC ABG pCO2 44.9 mmHg (32.0-48.0) 12/26/20 03:30 ABG pCO2 51.0 mm Hg 12/20/20 21:30 POC ABG pO2 101.7 mmHg (83-108) 12/26/20 03:30 ABG pO2 104.4 mm Hg (80.0-90.0) H 12/20/20 21:30 POC ABG HCO3 25.1 12/26/20 03:30 ABG HCO3 25.3 mmol/L (20.0-26.0) 12/20/20 21:30 ABG O2 Saturation 97.1 (0-100) 12/26/20 03:30 ABG O2 Content 20.3 (0.0-44) 12/20/20 21:30 POC ABG Base Excess -0.5 12/26/20 03:30 ABG Base Excess -1.7 mmol/L (-2.0-3.0) 12/20/20 21:30 ABG Hemoglobin 11.8 (12.0-17.5) L 12/26/20 03:30 ABG Oxyhemoglobin 95.7 (94-98) 12/26/20 03:30 ABG Carboxyhemoglobin 1.3 % (0.0-5.0) 12/20/20 21:30 ABG Methemoglobin 0.3 (0.0-1.5) 12/26/20 03:30 ABG Sodium 143.6 mmol/L (136.0-145.0) 12/26/20 03:30 ABG Potassium 4.7 mmol/L (3.40-4.50) H 12/26/20 03:30 ABG Chloride 114.0 mmol/L (98-107) H 12/26/20 03:30 ABG Glucose 132 mg/dL (65-95) H 12/26/20 03:30 Oxyhemoglobin 95.2 % (95.0-99.0) 12/20/20 21:30 Carboxyhemoglobin 1.1 (0.5-1.5) 12/26/20 03:30 FiO2 100 % 12/20/20 21:30 FiO2 % 45.0 12/26/20 03:30 Sodium 147 mmol/L (137-145) H D 12/26/20 08:33 Potassium 4.8 mmol/L (3.6-5.0) D 12/26/20 08:33 Chloride 108.8 mmol/L (98-107) H 12/26/20 08:33 Carbon Dioxide 24 mmol/L (22-30) 12/26/20 08:33 Anion Gap 19 mmol/L 12/26/20 08:33 BUN 68 mg/dL (9-20) H 12/26/20 08:33 Creatinine 3.8 mg/dL (0.8-1.3) H 12/26/20 08:33 Estimated GFR 16 ml/min 12/26/20 08:33 BUN/Creatinine Ratio 18 % 12/26/20 08:33 Glucose 144 mg/dL (75-100) H 12/26/20 08:33 POC Glucose 144 mg/dL (70-105) H 12/26/20 11:19 Lactic Acid 1.70 mmol/L (0.7-2.0) 12/20/20 16:20 Calcium 6.5 mg/dL (8.4-10.2) L 12/26/20 08:33 Ionized Calcium 4.1 mg/dL (4.8-5.6) L 12/21/20 21:28 Phosphorus 5.60 mg/dL (2.5-4.5) H 12/26/20 Unknown Magnesium 2.90 mg/dL (1.7-2.3) H 12/26/20 06:01 Total Bilirubin 0.40 mg/dL (0.1-1.2) 12/24/20 04:30 AST 40 units/L (5-40) 12/24/20 04:30 ALT 17 units/L (7-56) 12/24/20 04:30 Alkaline Phosphatase 53 units/L (35-129) 12/24/20 04:30 Troponin T < 0.010 ng/mL (0.00-0.029) 12/20/20 13:58 Total Protein 5.7 g/dL (6.3-8.2) L 12/24/20 04:30 Albumin 1.8 g/dL (3.9-5) L 12/24/20 04:30 Albumin/Globulin Ratio 0.5 % 12/24/20 04:30 Arterial Blood Glucose 132 mg/dL (65-95) H 12/26/20 03:30 Arterial Blood Ionized Calcium 3.6 mg/dL (4.6-5.3) L 12/26/20 03:30 Urine Color Yellow (Yellow) 12/23/20 12:15 Urine Turbidity Cloudy (Clear) 12/23/20 12:15 Urine pH 5.0 (5.0-7.0) 12/23/20 12:15 Ur Specific [place] 1.019 (1.003-1.030) 12/23/20 12:15 Urine Protein <15 mg/dl mg/dL (Negative) 12/23/20 12:15 Urine Glucose (UA) Neg mg/dL (Negative) 12/23/20 12:15 Urine Ketones Neg mg/dL (Negative) 12/23/20 12:15 Urine Blood Sm (Negative) 12/23/20 12:15 Urine Nitrite Neg (Negative) 12/23/20 12:15 Urine Bilirubin Neg (Negative) 12/23/20 12:15 Urine Urobilinogen < 2.0 mg/dL (<2.0) 12/23/20 12:15 Ur Leukocyte Esterase Neg (Negative) 12/23/20 12:15 Urine WBC (Auto) 5.0 /HPF (0.0-6.0) 12/23/20 12:15 Urine RBC (Auto) 2.0 /HPF (0.0-6.0) 12/23/20 12:15 U Epithel Cells (Auto) < 1.0 /HPF (0-13.0) 12/20/20 Unknown Urine Bacteria (Auto) 1+ /HPF (Negative) 12/23/20 12:15 Triple Phos Crystals 2+ 12/23/20 12:15 Hyaline Casts 19 /LPF 12/20/20 Unknown Urine Mucus Few /HPF 12/23/20 12:15 Urine Eosinophils None seen (None Seen) 12/23/20 12:15 Urine Creatinine 78.1 mg/dL (0.1-20.0) H 12/23/20 12:15 Urine Sodium 13 mmol/L 12/23/20 12:15 Fraction Sodium Excret 0.2 12/23/20 12:15 Random Vancomycin 7.9 ug/mL (0-40.0) 12/23/20 12:15 Coronavirus (PCR) Negative (Negative) 12/21/20 Unknown Blood Type A NEGATIVE 12/26/20 06:08 Antibody Screen Negative 12/26/20 06:08 Microbiology: Microbiology 12/20/20 13:58 Peripheral/Venous Blood Culture - Final NO GROWTH AFTER 5 DAYS 12/20/20 13:58 Peripheral/Venous Blood Culture - Final NO GROWTH AFTER 5 DAYS Lawrence/IV: Voiding Method Indwelling Catheter Active Medications - Current Medications Current Medications: Generic Name Dose Route Start Last Admin Trade Name Freq PRN Reason Stop Dose Admin Acetaminophen 650 mg 12/21/20 11:51 12/25/20 20:35 Acetaminophen 650 Mg Rect Supp OR 650 mg Q4H PRN Administration TEMP >/=100.4 Dextrose 50 ml 12/24/20 10:49 Dextrose 50% In Water (25gm) 50 Ml Syringe IV Q30MIN PRN Hypoglycemia Protocol Famotidine 20 mg 12/26/20 10:00 12/26/20 10:09 Famotidine 20 Mg/2 Ml Inj IV 20 mg DAILY ASCENCION Administration Fentanyl 50 mcg 12/20/20 21:58 12/21/20 03:46 Fentanyl 100 Mcg/2 Ml Inj IV 50 mcg Q10MIN PRN Administration ANALGESIA Hydrophilic Ointment 1 applic 12/20/20 21:58 Lip Therapy Vaseline TP Q2HR PRN Dry Lips Fentanyl Citrate 2,000 mcg in 100 mls @ 6.01 mls/hr 12/20/20 22:00 12/26/20 11:12 Fentanyl Drip Premix IV 4 mcg/kg/hr TITR ASCENCION 24.04 mls/hr Titration Protocol 1 MCG/KG/HR Propofol 1,000 mg in 100 mls @ 3.606 mls/hr 12/20/20 22:00 12/26/20 08:10 Diprivan 10 Mg/Ml IV 40 mcg/kg/min TITR ASCENCION 28.848 mls/hr Administration Protocol 5 MCG/KG/MIN NORepinephrine/NS 8 MG-250 ML 8 mg in 250 mls @ 3.75 mls/hr 12/21/20 09:00 12/26/20 11:19 Norepinephrine/Ns 8 Mg-250 Ml (Double Conc) IV 4 mcg/min TITRATE ASCENCION 7.5 mls/hr Titration Protocol 2 MCG/MIN Vasopressin 20 unit/ Sodium 101 mls @ 9.09 mls/hr 12/24/20 09:00 Chloride IV TITR ASCENCION Protocol 0.03 UNITS/MIN Amino Acids/Electrolytes/Dextrose 2,400 mls @ 100 mls/hr 12/25/20 20:00 12/25/20 20:33 Tpn Adult IV 12/26/20 19:59 100 mls/hr DAILY@2000 ASCENCION Administration Protocol Lactated Ringer's 1,000 mls @ 999 mls/hr 12/25/20 13:15 12/25/20 16:05 Lactated Ringers IV 12/26/20 14:16 Infused BOLUS ASCENCION Infusion Dextrose 1,000 mls @ 100 mls/hr 12/25/20 14:00 12/26/20 06:07 D5w IV 100 mls/hr DIRECT ASCENCION Administration Piperacillin Sod/Tazobactam Sod 4.5 gm in 100 mls @ 200 mls/hr 12/26/20 18:00 Zosyn/Ns 4.5gm/100ml IV Q12H ASCENCION Protocol Fluconazole 200 mg in 100 mls @ 100 mls/hr 12/26/20 10:00 12/26/20 10:08 Diflucan IV 100 mls/hr Q24H ASCENCION Administration Protocol Lactated Ringer's 1,000 mls @ 999 mls/hr 12/26/20 10:45 12/26/20 11:15 Lactated Ringers IV 12/29/20 11:46 999 mls/hr DIRECT ASCENCION Administration Insulin Human Regular 0 units 12/24/20 11:00 12/26/20 11:27 Insulin Regular, Human 100 Units/1 Ml SUB-Q Not Given Q6H ASCENCION Protocol Multi-Ingred Cream/Lotion/Oil/Oint 1 applic 12/20/20 21:58 Mineral Oil/Petrolatum, White Ophth Oint 3.5 Gm OU Q4HR PRN Dry Eye(s) Senna/Docusate Sodium 1 tab 12/20/20 22:00 12/26/20 10:02 Sennosides/Docusate Sodium 8.6/50 Mg Tab FEEDTUBE Not Given BID ASCENCION Sodium Chloride 10 ml 12/20/20 22:00 12/26/20 10:09 Sodium Chloride 0.9% 10 Ml Flush Syringe IV 10 ml BID ASCENCION Administration Sodium Chloride 10 ml 12/20/20 16:42 Sodium Chloride 0.9% 10 Ml Flush Syringe IV PRN PRN LINE FLUSH Nutrition/Malnutrition Assess - Dietary Evaluation Nutrition/Malnutrition Findings: Nutrition Notes Start: 12/21/20 09:06 Freq: Status: Active Protocol: Document 12/26/20 11:09 PIETRO (Rec: 12/26/20 11:16 PIETRO [email or web address]) Nutrition Notes Initial or Follow up Reassessment Current Diagnosis Coronary Artery Disease, Hypertension,Small Bowel Obstruction,Hyperlipidemia Other Pertinent Diagnosis gangrenous small bowel, s/p small bowel ressection, peritonitis Current Diet TPN at 100 ml/hr Labs/Tests Na 147 BUN 68 Cr 3.8 Phos 5.6 Pertinent Medications Propofol at 28.848 ml/hr (762 kcal) D5w at 100 ml/hr Height 6 ft Weight 121.1 kg [place] Body Weight (kg) 80.90 BMI 36.2 Weight Status Morbidly Obese Subjective/Other Information Day 3 TPN. Pt going to OR today. Pt with highout put NGT . Percent of energy/protein needs met: 85%/46% (including propofol) Burn Absent Trauma Absent GI Symptoms Other Current % PO Negligible Minimum of two criteria No physical signs of malnutrition #2 Nutrition Diagnosis Increased nutrient needs ( specify in comment below) Diagnosis Progress(for reassessment Continues documentation) #1 Nutrition Diagnosis Inadequate oral intake Diagnosis Progress(for reassessment Continues documentation) Is patient on ventilator? Yes Is Patient Ambulatory and/or Out of Bed No REE-([place]-confined to bed) 2481.012 Kcal/Kg value to use for calculation 17 Approximate Energy Requirements Using 2059 kcal/Kg Calculation Used for Recommendations Kcal/kg Additional Notes Protein: >2g/IBW (>162g) Fluid: 1 ml/kcal or per MD Nutrition Intervention Change Diet Order: Continue CPN Nutrition Support: CPN at 100 ml/hr; Dextrose 10. 4%; phos 0 mmol, K 0 mEq MVI, Thiamine Osmolality 833 Kcal 1,150 Protein (gm) 75 Carbohydrates (gm) 250 Fat (gm) 0 Fluid (mL) 2,400 Goal #1 Meet needs as best as possible via CPN Anticipated Discharge Needs: Unable to determine at this time Follow-Up By: 12/27/20 Additional Comments Labs in AM: BMP, Mg, Phos
[2020-12-26] MEDS ORDERED: ROCURONIUM 50 MG/5 ML INJ IV ONE (12:49)
[2020-12-26] MEDS ORDERED: fentaNYL 100 MCG/2 ML INJ ONE (12:49)
--- NOTE | 2020-12-26 13:00 | Anesthesia Day of Surgery ---
Anesthesia Day of Surgery - Day of Surgery Patient Examined: Yes Patient H&P Reviewed: Yes Patient is NPO: Yes
[2020-12-26] MEDS ORDERED: SODIUM CHLORIDE 0.9% IRR 1,500 ML BOTTLE IR ONE (14:06)
--- NOTE | 2020-12-26 14:10 | Progress Note ---
Assessment and Plan Cultures: 12/20/2020 sputum culture: In process 12/20/2020 blood culture: No growth 12/20/2020 urine culture: Usual skin giorgio A/P: 60-year-old male with obesity, hypertension, tobacco abuse, coronary artery disease, admitted to the hospital on 12/20/2020 with: #Septic shock: Secondary to intra-abdominal source, peritonitis. Patient with necrotic bowel secondary to incarcerated ventral hernia. Status post exploratory laparotomy, extensive adhesiolysis, small bowel resection and peritoneal lavage along with ABThera VAC placement on 12/20/2020. #JONI: Renally dose antibiotics. #Morbid obesity Recs: -continue renally dosed Zosyn. -continue Fluconazole 400 mg daily, if creatinine rises further, decrease dose to 200 mg daily -Return to the OR today. Culture any purulence seen. Priscilla Marie MD [facility] O: [phone] F: [phone] Subjective Date of service: 12/26/20 Interval history: Febrile overnight with a T-max of 101.4. White count currently 21.6. Return to the OR today. Cultures remain negative. Objective - Exam Narrative Exam: Physical Exam: Constitutional: sedated, intubated, on the vent Head, Ears, Nose: Normocephalic, atraumatic. External ears, nose normal Eyes: Conjunctivae/corneas clear. No icterus. No ptosis. Neck: intubated Oral: intubated Cardiovascular: S1, S2 + Respiratory: AE fair bilaterally and equal GI: ABThera VAC present, bowel sounds absent Musculoskeletal: No pedal edema, no cyanosis. Skin: No rash or abscess Hem/Lymphatic: No palpable cervical or supraclavicular nodes. No lymphangitis Psych: no agitation Neurological: sedated, intubated, on the vent, exam limited - Constitutional Vitals: Vital Signs Temp Pulse Resp BP Pulse Ox 99.9 F H 98 H 24 87/52 97 12/26/20 12:00 12/26/20 11:23 12/26/20 11:15 12/26/20 11:23 12/26/20 11:23 Temperature -Last 24 Hours Temperature 99.9 F Temperature 99.7 F Temperature 100.1 F Temperature 101 F Temperature 101.4 F Temperature 99.5 F - Labs CBC & Chem 7: 12/26/20 06:01 12/26/20 08:33 Labs: Abnormal lab results 12/25/20 12/25/20 12/25/20 Range/Units 16:32 18:18 23:23 WBC (4.5-11.0) K/mm3 MCHC (32-34) % RDW (13.2-15.2) % Plt Count (140-440) K/mm3 ABG Hemoglobin (12.0-17.5) ABG Potassium (3.40-4.50) mmol/L ABG Chloride (98-107) mmol/L ABG Glucose (65-95) mg/dL Sodium 151 H (137-145) mmol/L Potassium (3.6-5.0) mmol/L Chloride 114.3 H (98-107) mmol/L BUN 51 H (9-20) mg/dL Creatinine 2.6 H D (0.8-1.3) mg/dL Glucose 122 H (75-100) mg/dL POC Glucose 126 H 115 H (70-105) mg/dL Calcium 6.4 L (8.4-10.2) mg/dL Phosphorus (2.5-4.5) mg/dL Magnesium (1.7-2.3) mg/dL Arterial Blood Glucose (65-95) mg/dL Arterial Blood Ionized Calcium (4.6-5.3) mg/dL 12/26/20 12/26/20 12/26/20 Range/Units 03:30 04:55 06:01 WBC (4.5-11.0) K/mm3 MCHC (32-34) % RDW (13.2-15.2) % Plt Count (140-440) K/mm3 ABG Hemoglobin 11.8 L (12.0-17.5) ABG Potassium 4.7 H (3.40-4.50) mmol/L ABG Chloride 114.0 H (98-107) mmol/L ABG Glucose 132 H (65-95) mg/dL Sodium 173 H* D (137-145) mmol/L Potassium 6.1 H* D (3.6-5.0) mmol/L Chloride 137.0 H (98-107) mmol/L BUN 73 H (9-20) mg/dL Creatinine 3.8 H (0.8-1.3) mg/dL Glucose 125 H (75-100) mg/dL POC Glucose 112 H (70-105) mg/dL Calcium 6.2 L (8.4-10.2) mg/dL Phosphorus 5.70 H D (2.5-4.5) mg/dL Magnesium 2.90 H (1.7-2.3) mg/dL Arterial Blood Glucose 132 H (65-95) mg/dL Arterial Blood Ionized Calcium 3.6 L (4.6-5.3) mg/dL 12/26/20 12/26/20 12/26/20 Range/Units 06:01 08:33 11:19 WBC 21.6 H (4.5-11.0) K/mm3 MCHC 31 L (32-34) % RDW 16.5 H (13.2-15.2) % Plt Count 136 L (140-440) K/mm3 ABG Hemoglobin (12.0-17.5) ABG Potassium (3.40-4.50) mmol/L ABG Chloride (98-107) mmol/L ABG Glucose (65-95) mg/dL Sodium 147 H D (137-145) mmol/L Potassium (3.6-5.0) mmol/L Chloride 108.8 H (98-107) mmol/L BUN 68 H (9-20) mg/dL Creatinine 3.8 H (0.8-1.3) mg/dL Glucose 144 H (75-100) mg/dL POC Glucose 144 H (70-105) mg/dL Calcium 6.5 L (8.4-10.2) mg/dL Phosphorus (2.5-4.5) mg/dL Magnesium (1.7-2.3) mg/dL Arterial Blood Glucose (65-95) mg/dL Arterial Blood Ionized Calcium (4.6-5.3) mg/dL 12/26/20 Range/Units Unknown WBC (4.5-11.0) K/mm3 MCHC (32-34) % RDW (13.2-15.2) % Plt Count (140-440) K/mm3 ABG Hemoglobin (12.0-17.5) ABG Potassium (3.40-4.50) mmol/L ABG Chloride (98-107) mmol/L ABG Glucose (65-95) mg/dL Sodium (137-145) mmol/L Potassium (3.6-5.0) mmol/L Chloride (98-107) mmol/L BUN (9-20) mg/dL Creatinine (0.8-1.3) mg/dL Glucose (75-100) mg/dL POC Glucose (70-105) mg/dL Calcium (8.4-10.2) mg/dL Phosphorus 5.60 H (2.5-4.5) mg/dL Magnesium (1.7-2.3) mg/dL Arterial Blood Glucose (65-95) mg/dL Arterial Blood Ionized Calcium (4.6-5.3) mg/dL
--- NOTE | 2020-12-26 16:14 | Operative Report ---
Operative Report Operative Report: Date: December 26, 2020 Surgeon: Freda Tena MD Director Human Services surgeon: Julia Brumfield DO Procedure:1. Abdominal exploration,2. Small bowel resection,3. Peritoneal lavage,4. ABThera wound VAC placement Anesthesia: General Preop diagnosis: Gangrenous small bowel from incarcerated ventral hernia, subsequent open abdomen status post previous exploratory laparotomy Postop diagnosis: Same as preop Indication: Patient is a 60-year-old male who presented to the emergency room 3 days ago with incarcerated ventral hernia with small bowel causing gangrenous necrosis. Patient had a segmental small bowel resection and was left in discontinuity two times prior and covered with ABThera VAC. Patient has been septic, remaining on the ventilator in ICU with supportive care. Patient is here today for third look, abdominal exploration to evaluate remaining small bowel, and abdominal washout preparation for future procedure for hopefully reanastomosis and abdominal closure. Details of procedure: Patient was transferred from ICU bed to the OR table in supine position. General anesthesia was induced maintaining his previous place ET tube. The ABThera wound VAC was removed and patient abdomen was prepped and draped in sterile fashion. The remaining sponge and VAC apparatus was removed from abdominal cavity. Patient continues to have less dilated segments of small bowel that were easily . There was noted to be some free sucus draining from a defect in the end of the distal stapled end. This was whip stitched closed with 3-O silk to control spillage with the mesentery taken with an Enseal device. The tip end of this segment was resected with ALEX stapler. A large segement of small bowel on the proximal end was noted to be grossly ischemic and was starting to become woody in texture. It was not felt that this segement was salvageable for any future anastamosis. a segment of small bowel of about 50cm was resected to a viable margin. The peritoneal cavity was copiously irrigated with normal saline followed by aspiration. An ABThera abdominal wound VAC was then placed over the abdominal contents and secured to suction. Patient was then transferred back to his ICU bed and taken to recovery stable condition. All counts were correct. Of note the patients bladder was noted to be extremely distended during the case consistent with the haley catheter malfunctioning. The classroom teacher tried to flush the catheter but it did not decompress the bladder. The old haley was removed a nd a new catheter was place which was able to decompress the bladder successfully. Specimen: Segments of small bowel Complications: None immediate EBL: Minimal
--- NOTE | 2020-12-26 16:22 | Post Anesthesia Evaluation ---
- Post Anesthesia Evaluation Patient Participated: No (sedated) Airway Patent: Yes (intubated) Stable Respiratory Function: No (increased FiO2 requirement compared to preop) Nausea/Vomiting: No (unable to assess) Temp > 96.8F: Yes (febrile at preop baseline) Pain Manageable: Yes (unable to assess; fentanyl gtt ongoing) Adequeate Hydration: Yes (levo gtt at preop baseline) Anesthesia Complications: No Patient on Ventilator: Yes (FiO2 increased to 100% on arrival to ICU for relative hypoxia) Other Comments: Patient transported to ICU, VS monitored and stable, respirations via AMBU, pressors and sedation running. SpO2 90-92% during transport so placed on vent and FiO2 increased to 100%. SpO2 improved to >95%. Report given to PACU and PARTS CONTROL CLERK. Stable at transfer of care.
[2020-12-26] MEDS ORDERED: SODIUM CHLORIDE 0.9% 1000 ML 1,000 ML ONE (17:24)
[2020-12-26] MEDS ORDERED: TOTAL PARENTERAL NUTRITION 2,400 ML IV SCH (20:00)
[2020-12-26] MEDS ORDERED: LACTATED RINGERS 2,000 ML IV ONE (22:00)
[2020-12-26 22:26] LABS: Albumin 1.5 g/dL (3.9-5)
[2020-12-26 22:30] LABS: Calcium 5.8 mg/dL (8.4-10.2)
[2020-12-26] MEDS ORDERED: CALCIUM GLUCONATE 1,000 MG in SODIUM CHLORIDE 0.9% 100 ML IV ONE (22:55)
[2020-12-27] MEDS ORDERED: LACTATED RINGERS 2,000 ML IV ONE ×2 (00:19→10:45)
[2020-12-27 00:42] LABS: Hematocrit 36.4 % (35.5-45.6); Hemoglobin 11.1 gm/dl (11.8-15.2)
[2020-12-27] MEDS: fentaNYL DRIP Premix 2,000 MCG/100 ML BAG IV SCH ×7 (00:49→23:44)
[2020-12-27] MEDS: NORepinephrine/NS 8 MG-250 ML 8 MG/250 ML INFUS..BTL IV SCH ×4 (01:00→22:49)
[2020-12-27] MEDS: VASOPRESSIN 20 UNIT in SODIUM CHLORIDE 0.9% 100 ML IV SCH ×3 (03:20→22:49)
[2020-12-27 04:39] LABS: Hematocrit 36.5 % (35.5-45.6); Hemoglobin 11.2 gm/dl (11.8-15.2); Mean Corpuscular HGB Conc 31 % (32-34); Mean Corpuscular Volume 89 fl (84-94); Platelet Count 130 K/mm3 (140-440); Red Blood Count 4.09 M/mm3 (3.65-5.03); Red Cell Distribution Width 16.5 % (13.2-15.2)
[2020-12-27] MEDS: INSULIN REGULAR, HUMAN 100 UNITS/1 ML SUB-Q SCH ×4 (05:00→23:32)
[2020-12-27 05:03] LABS: Calcium 6.2 mg/dL (8.4-10.2)
[2020-12-27] MEDS: DEXTROSE 5% IN WATER 1,000 ML IV SCH (05:52)
[2020-12-27] MEDS: PIPERACIL/TAZOBACTA 4.5/NS 100 4.5 GM/100 ML VIAL IV SCH ×2 (06:04→18:53)
[2020-12-27] MEDS ORDERED: LACTATED RINGERS 3,000 ML IV ONE (08:15)
[2020-12-27] MEDS: FLUCONAZOLE 200 MG 200 MG/100 ML BAG IV SCH (09:07)
[2020-12-27] MEDS: FAMOTIDINE 20 MG/2 ML INJ IV SCH (09:08)
[2020-12-27] MEDS ORDERED: DEXTROSE 50% IN WATER (25GM) 50 ML SYRINGE IV ONE (10:45)
[2020-12-27] MEDS ORDERED: LACTATED RINGERS 1,000 ML IV ONE ×5 (10:45→18:58)
[2020-12-27] MEDS ORDERED: INSULIN REGULAR, HUMAN 100 UNITS/1 ML IV ONE (10:45)
[2020-12-27] MEDS ORDERED: HYDROCORTISONE SOD SUCC 100 MG/2 ML VIAL IV ONE (11:00)
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
--- NOTE | 2020-12-27 12:12 | Progress Note ---
Assessment and Plan Impression * Acute kidney injury. Most likely prerenal with additional tubular injury as well * Incarcerated hernia with ischemic bowel. Status post bowel resection * Hypernatremia * Sepsis * Respiratory failure * Hyperkalemia Recommendations * Acute kidney injury most likely prerenal, now with likely tubular injury. Likely with some obstructive nephropathy as well, excellent urine output over past 24 hours * His urine shows trace protein and only 2 RBCs per high-power field. Fractional excretion of sodium is 0.2% . His baseline creatinine is approximately 0.7. * Creatinine worsened from 2.6->3.8->4.1, likely stabilizing * Note K 6.0, agree with aggressive medical measures * Will consider renal replacement therapy if not improving, but will be hard to tolerate HD given ongoing hypotension, need for vaso and levo * Agree with ongoing aggressive IV hydration, agree with LR or other isotonic crystalloid. Will d/c D5W as no need for hypotonic solution with TPN * Patient currently has indwelling Lawrence catheter in place and is also nonoliguric. * TPN per nutrition/primary * Pressors to maintain MAP greater than 65 * Avoid nephrotoxins * Monitor fluid status and electrolytes closely Subjective Date of service: 12/27/20 Interval history: Went to OR yesterday, noted to have urinary retention Objective - Exam Narrative Exam: General appearance: ill appearing appears stated age, intubated EENT: PERRL, mucous membranes moist Neck: no JVD Respiratory: Present: Ronchi (Few scattered rhonchi) Cardiology: regular, normal heart rate Gastrointestinal: other (Midline incision noted. Wound VAC in place.) Integumentary: other (No edema) - Vital Signs Vital signs: Vital Signs - 12hr 12/27/20 12/27/20 12/27/20 00:15 00:30 00:46 Temperature Pulse Rate 77 79 81 Respiratory 22 24 25 H Rate Respiratory Rate [abd] Respiratory Rate [chest pain] Blood Pressure 157/79 128/67 89/41 O2 Sat by Pulse 97 97 97 Oximetry 12/27/20 12/27/20 12/27/20 01:00 01:15 01:30 Temperature Pulse Rate 79 79 79 Respiratory 22 24 25 H Rate Respiratory Rate [abd] Respiratory Rate [chest pain] Blood Pressure 142/65 123/59 134/62 O2 Sat by Pulse 99 98 99 Oximetry 12/27/20 12/27/20 12/27/20 01:45 02:00 02:15 Temperature Pulse Rate 80 80 79 Respiratory 24 24 22 Rate Respiratory Rate [abd] Respiratory Rate [chest pain] Blood Pressure 128/61 129/61 117/55 O2 Sat by Pulse 98 100 97 Oximetry 12/27/20 12/27/20 12/27/20 02:30 02:45 03:00 Temperature Pulse Rate 80 94 H 86 Respiratory 23 21 24 Rate Respiratory Rate [abd] Respiratory Rate [chest pain] Blood Pressure 128/61 154/74 111/61 O2 Sat by Pulse 99 100 97 Oximetry 12/27/20 12/27/20 12/27/20 03:16 03:30 03:45 Temperature 98.9 F Pulse Rate 87 85 84 Respiratory 25 H Rate Respiratory 25 H Rate [abd] Respiratory 25 H Rate [chest pain] Blood Pressure 111/61 99/60 100/61 O2 Sat by Pulse 97 97 Oximetry 12/27/20 12/27/20 12/27/20 04:00 04:15 04:30 Temperature Pulse Rate 85 86 106 H Respiratory Rate Respiratory Rate [abd] Respiratory Rate [chest pain] Blood Pressure 101/62 101/61 103/63 O2 Sat by Pulse 100 98 50 L Oximetry 12/27/20 12/27/20 12/27/20 04:45 04:51 05:00 Temperature Pulse Rate 89 88 86 Respiratory Rate Respiratory Rate [abd] Respiratory Rate [chest pain] Blood Pressure 111/63 104/58 112/62 O2 Sat by Pulse 98 99 99 Oximetry 12/27/20 12/27/20 12/27/20 05:15 05:30 05:45 Temperature Pulse Rate 84 85 84 Respiratory Rate Respiratory Rate [abd] Respiratory Rate [chest pain] Blood Pressure 114/68 110/68 115/74 O2 Sat by Pulse 100 99 99 Oximetry 12/27/20 12/27/20 12/27/20 06:00 06:16 06:30 Temperature Pulse Rate 93 H 87 86 Respiratory Rate Respiratory Rate [abd] Respiratory Rate [chest pain] Blood Pressure 138/80 102/64 117/72 O2 Sat by Pulse 97 99 100 Oximetry 12/27/20 12/27/20 12/27/20 06:45 07:00 07:15 Temperature 97.7 F Pulse Rate 85 86 86 Respiratory Rate Respiratory Rate [abd] Respiratory Rate [chest pain] Blood Pressure 118/72 117/70 117/72 O2 Sat by Pulse 100 100 Oximetry 12/27/20 12/27/20 12/27/20 07:27 07:30 07:45 Temperature Pulse Rate 87 87 87 Respiratory Rate Respiratory Rate [abd] Respiratory Rate [chest pain] Blood Pressure 114/73 116/75 111/67 O2 Sat by Pulse 100 100 99 Oximetry 12/27/20 12/27/20 12/27/20 08:00 08:15 08:30 Temperature Pulse Rate 87 87 87 Respiratory 25 H Rate Respiratory 25 H Rate [abd] Respiratory 25 H Rate [chest pain] Blood Pressure 114/71 115/71 115/70 O2 Sat by Pulse 100 100 100 Oximetry 12/27/20 12/27/20 12/27/20 08:45 09:00 09:15 Temperature Pulse Rate 88 88 87 Respiratory Rate Respiratory Rate [abd] Respiratory Rate [chest pain] Blood Pressure 123/72 120/70 122/74 O2 Sat by Pulse 100 100 100 Oximetry 12/27/20 12/27/20 12/27/20 09:30 09:45 10:00 Temperature Pulse Rate 86 85 84 Respiratory Rate Respiratory Rate [abd] Respiratory Rate [chest pain] Blood Pressure 119/72 120/71 115/71 O2 Sat by Pulse 100 100 100 Oximetry 12/27/20 12/27/20 12/27/20 10:15 10:30 10:45 Temperature Pulse Rate 83 83 82 Respiratory Rate Respiratory Rate [abd] Respiratory Rate [chest pain] Blood Pressure 124/75 120/72 123/75 O2 Sat by Pulse 100 100 100 Oximetry 12/27/20 12/27/20 12/27/20 11:00 11:15 11:30 Temperature Pulse Rate 84 99 H 98 H Respiratory Rate Respiratory Rate [abd] Respiratory Rate [chest pain] Blood Pressure 118/71 126/70 126/77 O2 Sat by Pulse 100 99 Oximetry 12/27/20 12/27/20 11:45 12:07 Temperature Pulse Rate 98 H 97 H Respiratory Rate Respiratory Rate [abd] Respiratory Rate [chest pain] Blood Pressure 122/71 172/148 O2 Sat by Pulse 99 99 Oximetry - Lab 12/27/20 04:15 12/27/20 04:15 Most recent lab results ABG pH 7.238 (7.320-7.450) L 12/27/20 02:57 ABG pCO2 51.0 mm Hg 12/20/20 21:30 ABG pO2 104.4 mm Hg (80.0-90.0) H 12/20/20 21:30 ABG HCO3 25.3 mmol/L (20.0-26.0) 12/20/20 21:30 ABG O2 Saturation 98.3 (0-100) 12/27/20 02:57 Calcium 6.2 mg/dL (8.4-10.2) L 12/27/20 04:15 Phosphorus 7.30 mg/dL (2.5-4.5) H D 12/27/20 04:15 Magnesium 2.10 mg/dL (1.7-2.3) 12/27/20 04:15 Urine Creatinine 78.1 mg/dL (0.1-20.0) H 12/23/20 12:15 Urine Sodium 13 mmol/L 12/23/20 12:15 Medications & Allergies - Medications Allergies/Adverse Reactions: Allergies Iodinated Contrast Media Adverse Reaction (Verified 09/04/18 14:20) Unknown Home Medications: Home Medications Medication Instructions Recorded Confirmed Last Taken Type Aspirin 81 mg PO DAILY #30 tab.chew 09/08/18 09/12/20 03/31/20 09:28 Rx AtorvaSTATin [Lipitor] 80 mg PO QHS tablet 05/08/19 09/12/20 03/28/20 Rx Albuterol Sulfate [Proventil Hfa] 13.4 gm IH Q6H #1 hfa.aer.ad 04/01/20 09/12/20 Unknown Rx Clopidogrel [Plavix] 75 mg PO DAILY #30 tablet 04/01/20 09/12/20 Unknown Rx Gabapentin 300 mg PO BID@0700,1800 30 Days 04/01/20 09/12/20 Unknown Rx capsule Gabapentin 600 mg PO QHS 30 Days capsule 04/01/20 09/12/20 Unknown Rx Metoprolol [Lopressor TAB] 25 mg PO BID #60 tablet 04/01/20 09/12/20 Unknown Rx [place]-3/Dha/Epa/Fish Oil [[place] 3 1 each PO BID #60 capsule 04/01/20 09/12/20 Unknown Rx 500 Softgel] Tiotropium Ocate [Spiriva] 2 puff IH DAILY #30 cap.w.dev 04/01/20 09/12/20 Unknown Rx Ubidecarenone [Co Q-10] 10 mg PO BID #60 tab 04/01/20 09/12/20 03/29/20 Rx cilostazoL [Pletal] 50 mg PO BID 30 Days tablet 04/01/20 09/12/20 Unknown Rx oxyCODONE /ACETAMINOPHEN [Percocet 2 tab PO Q6H PRN tablet 04/01/20 09/12/20 Unknown Rx 5/325 mg] Phosphorus #1 [K-Phos Neutral] 250 mg PO QID 2 Days #8 tablet 09/14/20 Unknown Rx Active Medications: Generic Name Dose Route Start Last Admin Trade Name Freq PRN Reason Stop Dose Admin Acetaminophen 650 mg 12/21/20 11:51 12/25/20 20:35 Acetaminophen 650 Mg Rect Supp [place] 650 mg Q4H PRN Administration TEMP >/=100.4 Dextrose 50 ml 12/24/20 10:49 Dextrose 50% In Water (25gm) 50 Ml Syringe IV Q30MIN PRN Hypoglycemia Protocol Famotidine 20 mg 12/26/20 10:00 12/27/20 09:08 Famotidine 20 Mg/2 Ml Inj IV 20 mg DAILY ASCENCION Administration Fentanyl 50 mcg 12/20/20 21:58 12/21/20 03:46 Fentanyl 100 Mcg/2 Ml Inj IV 50 mcg Q10MIN PRN Administration ANALGESIA Hydrophilic Ointment 1 applic 12/20/20 21:58 Lip Therapy Vaseline TP Q2HR PRN Dry Lips Fentanyl Citrate 2,000 mcg in 100 mls @ 6.01 mls/hr 12/20/20 22:00 12/27/20 08:52 Fentanyl Drip Premix IV 4 mcg/kg/hr TITR ASCENCION 24.04 mls/hr Administration Protocol 1 MCG/KG/HR Propofol 1,000 mg in 100 mls @ 3.606 mls/hr 12/20/20 22:00 12/27/20 11:51 Diprivan 10 Mg/Ml IV 30 mcg/kg/min TITR ASCENCION 21.636 mls/hr Administration Protocol 5 MCG/KG/MIN NORepinephrine/NS 8 MG-250 ML 8 mg in 250 mls @ 3.75 mls/hr 12/21/20 09:00 12/27/20 11:30 Norepinephrine/Ns 8 Mg-250 Ml (Double Conc) IV 18 mcg/min TITRATE ASCENCION 33.75 mls/hr Titration Protocol 2 MCG/MIN Vasopressin 20 unit/ Sodium 101 mls @ 9.09 mls/hr 12/24/20 09:00 12/27/20 03:20 Chloride IV 0.03 units/min TITR ASCENCION 9.09 mls/hr Administration Protocol 0.03 UNITS/MIN Piperacillin Sod/Tazobactam Sod 4.5 gm in 100 mls @ 200 mls/hr 12/26/20 18:00 12/27/20 06:04 Zosyn/Ns 4.5gm/100ml IV 200 mls/hr Q12H ASCENCION Administration Protocol Fluconazole 200 mg in 100 mls @ 100 mls/hr 12/26/20 10:00 12/27/20 09:07 Diflucan IV 100 mls/hr Q24H ASCENCION Administration Protocol Amino Acids/Electrolytes/Dextrose 2,400 mls @ 100 mls/hr 12/26/20 20:00 12/26/20 20:40 Tpn Adult IV 12/27/20 19:59 100 mls/hr DAILY@1999 ASCENCION Administration Protocol Amino Acids/Electrolytes/Dextrose 2,400 mls @ 100 mls/hr 12/27/20 20:00 Tpn Adult IV 12/28/20 19:59 DAILY@1999 [facility] Protocol Lactated Ringer's 2,000 mls @ 999 mls/hr 12/27/20 10:45 12/27/20 10:53 Lactated Ringers IV 12/27/20 12:45 999 mls/hr BOLUS ONE Administration Insulin Human Regular 0 units 12/24/20 11:00 12/27/20 10:59 Insulin Regular, Human 100 Units/1 Ml SUB-Q Not Given Q6H [facility] Protocol Multi-Ingred Cream/Lotion/Oil/Oint 1 applic 12/20/20 21:58 Mineral Oil/Petrolatum, White Ophth Oint 3.5 Gm OU Q4HR PRN Dry Eye(s) Sodium Chloride 10 ml 12/20/20 22:00 12/27/20 10:45 Sodium Chloride 0.9% 10 Ml Flush Syringe IV 10 ml BID ASCENCION Administration Sodium Chloride 10 ml 12/20/20 16:42 Sodium Chloride 0.9% 10 Ml Flush Syringe IV PRN PRN LINE FLUSH
--- NOTE | 2020-12-27 12:48 | Progress Note ---
Assessment and Plan Cultures: 12/20/2020 sputum culture: In process 12/20/2020 blood culture: No growth 12/20/2020 urine culture: Usual skin giorgio A/P: 60-year-old male with obesity, hypertension, tobacco abuse, coronary artery disease, admitted to the hospital on 12/20/2020 with: #Septic shock: Secondary to intra-abdominal source, peritonitis. Patient with necrotic bowel secondary to incarcerated ventral hernia. Status post exploratory laparotomy, extensive adhesiolysis, small bowel resection and peritoneal lavage along with ABThera VAC placement on 12/20/2020. #JONI: Renally dose antibiotics. #Morbid obesity Recs: -continue renally dosed Zosyn. -continue Fluconazole 200 mg daily -increase in leukocytosis likely reactive to surgery yesterday. Continue to follow. Priscilla Marie MD [facility] ([facility] O: [phone] F: [phone] Subjective Date of service: 12/27/20 Interval history: Afebrile overnight, white count now 28.5 which is increasing. Return to surgery yesterday. Large segment of the bowel was noted to be grossly ischemic, and 50 cm was resected. Abdomen was irrigated. Objective - Exam Narrative Exam: Physical Exam: Constitutional: sedated, intubated, on the vent Head, Ears, Nose: Normocephalic, atraumatic. External ears, nose normal Eyes: Conjunctivae/corneas clear. No icterus. No ptosis. Neck: intubated Oral: intubated Cardiovascular: S1, S2 + Respiratory: AE fair bilaterally and equal GI: Abdomen dressed Musculoskeletal: No pedal edema, no cyanosis. Skin: No rash or abscess Hem/Lymphatic: No palpable cervical or supraclavicular nodes. No lymphangitis Psych: no agitation Neurological: sedated, intubated, on the vent, exam limited - Constitutional Vitals: Vital Signs Temp Pulse Resp BP Pulse Ox 97.7 F 97 H 25 H 131/112 99 12/27/20 07:00 12/27/20 12:15 12/27/20 12:00 12/27/20 12:15 12/27/20 12:15 Temperature -Last 24 Hours Temperature 97.7 F Temperature 98.9 F Temperature 98.0 F Temperature 98.0 F Temperature 100.5 F Temperature 98.5 F Temperature 100.7 F - Labs CBC & Chem 7: 12/27/20 04:15 12/27/20 04:15 Labs: Abnormal lab results 12/26/20 12/26/20 12/27/20 Range/Units 22:00 23:13 00:25 WBC (4.5-11.0) K/mm3 Hgb 11.1 L (11.8-15.2) gm/dl MCHC (32-34) % RDW (13.2-15.2) % Plt Count (140-440) K/mm3 ABG pH (7.320-7.450) POC ABG pO2 (83-108) mmHg ABG Hemoglobin (12.0-17.5) ABG Sodium (136.0-145.0) mmol/L ABG Potassium (3.40-4.50) mmol/L ABG Glucose (65-95) mg/dL Sodium (137-145) mmol/L Potassium 5.8 H D (3.6-5.0) mmol/L Carbon Dioxide 21 L (22-30) mmol/L BUN 68 H (9-20) mg/dL Creatinine 4.1 H (0.8-1.3) mg/dL Glucose 154 H (75-100) mg/dL POC Glucose 163 H (70-105) mg/dL Calcium 5.8 L* (8.4-10.2) mg/dL Phosphorus (2.5-4.5) mg/dL AST 215 H (5-40) units/L Total Protein 4.7 L (6.3-8.2) g/dL Albumin 1.5 L (3.9-5) g/dL Triglycerides (2-149) mg/dL Arterial Blood Glucose (65-95) mg/dL Arterial Blood Ionized Calcium (4.6-5.3) mg/dL 12/27/20 12/27/20 12/27/20 Range/Units 02:57 04:15 04:15 WBC 28.5 H (4.5-11.0) K/mm3 Hgb 11.2 L (11.8-15.2) gm/dl MCHC 31 L (32-34) % RDW 16.5 H (13.2-15.2) % Plt Count 130 L (140-440) K/mm3 ABG pH 7.238 L (7.320-7.450) POC ABG pO2 139.1 H (83-108) mmHg ABG Hemoglobin 11.2 L (12.0-17.5) ABG Sodium 133.8 L (136.0-145.0) mmol/L ABG Potassium 5.2 H (3.40-4.50) mmol/L ABG Glucose 182 H (65-95) mg/dL Sodium 136 L (137-145) mmol/L Potassium 6.0 H (3.6-5.0) mmol/L Carbon Dioxide 18 L (22-30) mmol/L BUN 68 H (9-20) mg/dL Creatinine 4.1 H (0.8-1.3) mg/dL Glucose 166 H (75-100) mg/dL POC Glucose (70-105) mg/dL Calcium 6.2 L (8.4-10.2) mg/dL Phosphorus 7.30 H D (2.5-4.5) mg/dL AST (5-40) units/L Total Protein (6.3-8.2) g/dL Albumin (3.9-5) g/dL Triglycerides 164 H (2-149) mg/dL Arterial Blood Glucose 182 H (65-95) mg/dL Arterial Blood Ionized Calcium 3.4 L (4.6-5.3) mg/dL 12/27/20 12/27/20 12/27/20 Range/Units 04:50 10:51 11:17 WBC (4.5-11.0) K/mm3 Hgb (11.8-15.2) gm/dl MCHC (32-34) % RDW (13.2-15.2) % Plt Count (140-440) K/mm3 ABG pH (7.320-7.450) POC ABG pO2 (83-108) mmHg ABG Hemoglobin (12.0-17.5) ABG Sodium (136.0-145.0) mmol/L ABG Potassium (3.40-4.50) mmol/L ABG Glucose (65-95) mg/dL Sodium (137-145) mmol/L Potassium (3.6-5.0) mmol/L Carbon Dioxide (22-30) mmol/L BUN (9-20) mg/dL Creatinine (0.8-1.3) mg/dL Glucose (75-100) mg/dL POC Glucose 140 H 113 H 154 H (70-105) mg/dL Calcium (8.4-10.2) mg/dL Phosphorus (2.5-4.5) mg/dL AST (5-40) units/L Total Protein (6.3-8.2) g/dL Albumin (3.9-5) g/dL Triglycerides (2-149) mg/dL Arterial Blood Glucose (65-95) mg/dL Arterial Blood Ionized Calcium (4.6-5.3) mg/dL
[2020-12-27 13:14] LABS: Calcium 5.6 mg/dL (8.4-10.2)
--- NOTE | 2020-12-27 14:47 | Progress Note ---
Assessment and Plan Assessment and Plan Assessment and plan: This is a 60-year-old male with obesity, hypertension, nicotine dependence, PVD s/p stent placement on dual antiplatelet therapy, hyperlipidemia, OA, GERD, ve ntral hernia and small bowel obstruction who was admitted with small bowel obstruction and peritonitis Septic Shock, POA (presented with leukocytosis, tachycardia, tachypnea,febrile and evidence of peritonitis) COVID-19 PUI, ruled out Small bowel obstruction with peritonitis Ventral hernia Leukocytosis Hypernatremia Hypercholremia Hypocalcemia Acute Kidney Injury Obesity Hypertension Nicotine dependence CAD s/p stent placement Hyperlipidemia Osteoarthritis GERD -[facility], surgery, infectious disease, nephrology consulted, appreciate recommendations -12/20 CT abdomen/pelvis showed high-grade small bowel obstruction related to severe complex ventral abdominal wall hernias, progressed in appearance from prior exam from 09/12/2020 without evidence of pneumonitis or pneumoperitoneum, patchy bibasilar airspace disease concern for atypical infectious process/pneumonitis -12/20 s/p ex lap, extensive lysis of adhesions, small bowel resection (removal of 70 cm necrotic small bowel segment), peritoneal lavage and ABThera abdominal wound VAC placement -12/23 s/p abdominal exploration, small bowel resection, peritoneal lavage, ABThera wound VAC placement -IV abx per ID: Zosyn, fluconazole -NGT to LIWS -NPO for now, TPN -SSI, Accucheck q6 -Vasopressor support with levophed and vasopressin -MIVF per nephro -12/23 Fractional excretion of sodium calculated at 0.16 indicating prerenal state -COVID-19 PCR negative -On mechanical ventilation, wean as tolerated, VAP bundle -Sedated with propofol and analgesia with fentanyl drip -Trend CBC, BMP, Mg, Phos GI/DVT prophylaxis: PPI, SCDs to bilateral lower extremities while in bed, avoid chemical anticoagulation to cleared by surgery Disposition: ICU The high probability of a clinically significant, sudden or life threatening deterioration of the [multi] system(s) required my full and direct attention, intervention and personal management. The aggregate critical care time was [3] minutes. This time is in addition to time spent performing reported procedures but includes the following: [x] Data Review and interpretation [x] Patient assessment and monitoring of vital signs [x] Documentation [x] Medication orders and management Subjective Date of service: 12/27/20 Principal diagnosis: SBO and necrosis of large part of small intestine Interval history: History Interval history: This is a 60-year-old male with obesity, hypertension, nicotine dependence, PVD s/p stent placement on dual antiplatelet therapy, hyperlipidemia, OA, GERD, ventral hernia with SBO who presents to the emergency department on 12/20 with severe, diffuse, worsened with movement, slightly relieved with rest abdominal pain rated at 10/10 with decreased oral intake, nausea and multiple episodes of vomiting. Patient underwent a CT of his abdomen/pelvis and was found to have evidence of small bowel obstruction as well as clinical findings consistent with acute peritonitis. Patient was admitted to the hospital service with acute peritonitis and incarcerated ventral hernia with consults to [facility] and surgery. 12/21: Patient is status post ex lap, extensive lysis of adhesions, small bowel resection, peritoneal lavage and ABThera abdominal wound VAC placement by Dr. Tena and Dr. Brumfield on 12/20 with removal of a 70 cm segment of necrotic small bowel. Patient was intubated and sedated on propofol 4 at the time of my examination on Assist-control, rate of 24, PEEP of 6, tidal volume of 550 and FiO2 35%. Patient needed to be deeply sedated and there was a became hypotensive. Patient was started on patient for support with Levophed and received bolus of IVF. 12/22: Patient was febrile to 103 and vancomycin and Diflucan were added by [facility] and infectious disease was consulted and they increased Zosyn and stop van comycin. Patient was given additional 1 L bolus today for CVP goal of 10-12. At the time of examination patient was on Levophed, propofol and fentanyl CMV tidal volume 500, rate of 24, PEEP of 6 and FiO2 65%. Plan for OR tomorrow 12/23: Patient Cr/BUN noted to be increased and nephrology was consulted. ID decreased the zosyn dose d/r renal function. Urine studies ordered. [place] placed today. LR boluses per [facility], TPN to be started. Fractional excretion of sodium calculated at 0.16 indicating prerenal state 5: Patient is status post abdominal exploration, small bowel resection of 4 to 5 cm segment of dusky small bowel, peritoneal lavage and ABThera wound VAC placement on 12/23 with surgery, leukocytosis and renal function is improving, worsening hypernatremia and hyperchloremia. Patient will be started on TPN today. We will place on SSI/Accu-Cheks every every 6 hours. Patient noted to be nearly maxed on Levophed and vasopressin was ordered. Remains sedated and on MV 12/25: Leukocytosis continues to improve, given Ca Gluconate today, Hypernatremia, Cr and hyperchorlemia slightly worsened today. Patient is sedated with propofol and fentanyl on CMV TV 500, Rate 24, Peep 6, FiO2 50%. He remains on levophed. Possible OR Saturday. 12/26 Patient presented with small bowel obstruction, is status post ex lap, extensive lysis of adhesions, small bowel resection, peritoneal lavage and ABTh era abdominal wound VAC placement by Dr. Tena and Dr. Brumfield on 12/20 with removal of a 70 cm segment of necrotic small bowel. Was taken back to OR on 12/23 s/p Abdominal exploration, Small bowel resection, Peritoneal lavage, ABThera wound VAC placement. he is still having fever. Poss going to OR again today. Sepsis managed by ID. He is on Diflucan, Zosyn. He is on Levophed. 12/27 s/p ex lap, extensive lysis of adhesions, small bowel resection (removal of 70 cm necrotic small bowel segment), peritoneal lavage and ABThera abdominal wound VAC placement. Still having fever Still on vent Objective - Exam Narrative Exam: on Vent - Constitutional Vitals: Vital Signs - 12hr 12/27/20 12/27/20 12/27/20 03:00 03:16 03:30 Temperature 98.9 F Pulse Rate 86 87 85 Respiratory 24 25 H Rate Respiratory 25 H Rate [abd] Respiratory 25 H Rate [chest pain] Blood Pressure 111/61 111/61 99/60 O2 Sat by Pulse 97 97 97 Oximetry 12/27/20 12/27/20 12/27/20 03:45 04:00 04:15 Temperature Pulse Rate 84 85 86 Respiratory Rate Respiratory Rate [abd] Respiratory Rate [chest pain] Blood Pressure 100/61 101/62 101/61 O2 Sat by Pulse 100 98 Oximetry 12/27/20 12/27/20 12/27/20 04:30 04:45 04:51 Temperature Pulse Rate 106 H 89 88 Respiratory Rate Respiratory Rate [abd] Respiratory Rate [chest pain] Blood Pressure 103/63 111/63 104/58 O2 Sat by Pulse 50 L 98 99 Oximetry 12/27/20 12/27/20 12/27/20 05:00 05:15 05:30 Temperature Pulse Rate 86 84 85 Respiratory Rate Respiratory Rate [abd] Respiratory Rate [chest pain] Blood Pressure 112/62 114/68 110/68 O2 Sat by Pulse 99 100 99 Oximetry 12/27/20 12/27/20 12/27/20 05:45 06:00 06:16 Temperature Pulse Rate 84 93 H 87 Respiratory Rate Respiratory Rate [abd] Respiratory Rate [chest pain] Blood Pressure 115/74 138/80 102/64 O2 Sat by Pulse 99 97 99 Oximetry 12/27/20 12/27/20 12/27/20 06:30 06:45 07:00 Temperature 97.7 F Pulse Rate 86 85 86 Respiratory Rate Respiratory Rate [abd] Respiratory Rate [chest pain] Blood Pressure 117/72 118/72 117/70 O2 Sat by Pulse 100 100 Oximetry 12/27/20 12/27/20 12/27/20 07:15 07:27 07:30 Temperature Pulse Rate 86 87 87 Respiratory Rate Respiratory Rate [abd] Respiratory Rate [chest pain] Blood Pressure 117/72 114/73 116/75 O2 Sat by Pulse 100 100 100 Oximetry 12/27/20 12/27/20 12/27/20 07:45 08:00 08:15 Temperature Pulse Rate 87 87 87 Respiratory 25 H Rate Respiratory 25 H Rate [abd] Respiratory 25 H Rate [chest pain] Blood Pressure 111/67 114/71 115/71 O2 Sat by Pulse 99 100 100 Oximetry 12/27/20 12/27/20 12/27/20 08:30 08:45 09:00 Temperature Pulse Rate 87 88 88 Respiratory Rate Respiratory Rate [abd] Respiratory Rate [chest pain] Blood Pressure 115/70 123/72 120/70 O2 Sat by Pulse 100 100 100 Oximetry 12/27/20 12/27/20 12/27/20 09:15 09:30 09:45 Temperature Pulse Rate 87 86 85 Respiratory Rate Respiratory Rate [abd] Respiratory Rate [chest pain] Blood Pressure 122/74 119/72 120/71 O2 Sat by Pulse 100 100 100 Oximetry 12/27/20 12/27/20 12/27/20 10:00 10:15 10:30 Temperature Pulse Rate 84 83 83 Respiratory Rate Respiratory Rate [abd] Respiratory Rate [chest pain] Blood Pressure 115/71 124/75 120/72 O2 Sat by Pulse 100 100 100 Oximetry 12/27/20 12/27/20 12/27/20 10:45 11:00 11:15 Temperature Pulse Rate 82 84 99 H Respiratory Rate Respiratory Rate [abd] Respiratory Rate [chest pain] Blood Pressure 123/75 118/71 126/70 O2 Sat by Pulse 100 100 99 Oximetry 12/27/20 12/27/20 12/27/20 11:30 11:45 12:00 Temperature 97.9 F Pulse Rate 98 H 98 H 97 H Respiratory 25 H Rate Respiratory 25 H Rate [abd] Respiratory 25 H Rate [chest pain] Blood Pressure 126/77 122/71 119/72 O2 Sat by Pulse 99 99 Oximetry 12/27/20 12/27/20 12/27/20 12:07 12:15 12:31 Temperature Pulse Rate 97 H 97 H 95 H Respiratory Rate Respiratory Rate [abd] Respiratory Rate [chest pain] Blood Pressure 172/148 131/112 117/71 O2 Sat by Pulse 99 99 Oximetry 12/27/20 12/27/20 12/27/20 12:45 13:00 13:15 Temperature Pulse Rate 94 H 78 77 Respiratory Rate Respiratory Rate [abd] Respiratory Rate [chest pain] Blood Pressure 122/75 109/64 113/70 O2 Sat by Pulse 99 99 100 Oximetry 12/27/20 12/27/20 12/27/20 13:30 13:45 14:00 Temperature Pulse Rate 77 76 77 Respiratory Rate Respiratory Rate [abd] Respiratory Rate [chest pain] Blood Pressure 112/71 112/69 111/69 O2 Sat by Pulse 99 99 99 Oximetry 12/27/20 12/27/20 14:16 14:30 Temperature Pulse Rate 79 77 Respiratory Rate Respiratory Rate [abd] Respiratory Rate [chest pain] Blood Pressure 90/52 118/73 O2 Sat by Pulse 99 99 Oximetry General appearance: Present: no acute distress, well-nourished - EENT Eyes: PERRL, EOM intact ENT: hearing intact, clear oral mucosa Ears: bilateral: normal - Neck Neck: supple, normal ROM - Respiratory Respiratory effort: normal Respiratory: bilateral: CTA, rhonchi - Breasts Breasts: normal - Cardiovascular Heart rate: 88 Rhythm: regular Heart Sounds: Present: S1 & S2. Absent: gallop, rub Extremities: pulses intact, No edema, normal color, Full ROM - Gastrointestinal General gastrointestinal: Present: soft, non-tender, tender, distended, hypoactive bowel sounds - Genitourinary Male genitourinary: normal - Integumentary Integumentary: clear, warm, dry - Musculoskeletal Musculoskeletal: generalized weakness - Neurologic Neurologic: moves all extremities - Psychiatric Psychiatric: other (Sedated) - Allied health notes Allied health notes reviewed: nursing, case management - Labs CBC & Chem 7: 12/27/20 04:15 12/27/20 12:40 Labs: Abnormal lab results 12/26/20 12/26/20 12/27/20 Range/Units 22:00 23:13 00:25 WBC (4.5-11.0) K/mm3 Hgb 11.1 L (11.8-15.2) gm/dl MCHC (32-34) % RDW (13.2-15.2) % Plt Count (140-440) K/mm3 ABG pH (7.320-7.450) POC ABG pO2 (83-108) mmHg ABG Hemoglobin (12.0-17.5) ABG Sodium (136.0-145.0) mmol/L ABG Potassium (3.40-4.50) mmol/L ABG Glucose (65-95) mg/dL Sodium (137-145) mmol/L Potassium 5.8 H D (3.6-5.0) mmol/L Carbon Dioxide 21 L (22-30) mmol/L BUN 68 H (9-20) mg/dL Creatinine 4.1 H (0.8-1.3) mg/dL Glucose 154 H (75-100) mg/dL POC Glucose 163 H (70-105) mg/dL Calcium 5.8 L* (8.4-10.2) mg/dL Phosphorus (2.5-4.5) mg/dL AST 215 H (5-40) units/L Total Protein 4.7 L (6.3-8.2) g/dL Albumin 1.5 L (3.9-5) g/dL Triglycerides (2-149) mg/dL Arterial Blood Glucose (65-95) mg/dL Arterial Blood Ionized Calcium (4.6-5.3) mg/dL 06/08/21 06/08/21 06/08/21 Range/Units 02:57 04:15 04:15 WBC 28.5 H (4.5-11.0) K/mm3 Hgb 11.2 L (11.8-15.2) gm/dl MCHC 31 L (32-34) % RDW 16.5 H (13.2-15.2) % Plt Count 130 L (140-440) K/mm3 ABG pH 7.238 L (7.320-7.450) POC ABG pO2 139.1 H (83-108) mmHg ABG Hemoglobin 11.2 L (12.0-17.5) ABG Sodium 133.8 L (136.0-145.0) mmol/L ABG Potassium 5.2 H (3.40-4.50) mmol/L ABG Glucose 182 H (65-95) mg/dL Sodium 136 L (137-145) mmol/L Potassium 6.0 H (3.6-5.0) mmol/L Carbon Dioxide 18 L (22-30) mmol/L BUN 68 H (9-20) mg/dL Creatinine 4.1 H (0.8-1.3) mg/dL Glucose 166 H (75-100) mg/dL POC Glucose (70-105) mg/dL Calcium 6.2 L (8.4-10.2) mg/dL Phosphorus 7.30 H D (2.5-4.5) mg/dL AST (5-40) units/L Total Protein (6.3-8.2) g/dL Albumin (3.9-5) g/dL Triglycerides 164 H (2-149) mg/dL Arterial Blood Glucose 182 H (65-95) mg/dL Arterial Blood Ionized Calcium 3.4 L (4.6-5.3) mg/dL 12/27/20 12/27/20 12/27/20 Range/Units 04:50 10:51 11:17 WBC (4.5-11.0) K/mm3 Hgb (11.8-15.2) gm/dl MCHC (32-34) % RDW (13.2-15.2) % Plt Count (140-440) K/mm3 ABG pH (7.320-7.450) POC ABG pO2 (83-108) mmHg ABG Hemoglobin (12.0-17.5) ABG Sodium (136.0-145.0) mmol/L ABG Potassium (3.40-4.50) mmol/L ABG Glucose (65-95) mg/dL Sodium (137-145) mmol/L Potassium (3.6-5.0) mmol/L Carbon Dioxide (22-30) mmol/L BUN (9-20) mg/dL Creatinine (0.8-1.3) mg/dL Glucose (75-100) mg/dL POC Glucose 140 H 113 H 154 H (70-105) mg/dL Calcium (8.4-10.2) mg/dL Phosphorus (2.5-4.5) mg/dL AST (5-40) units/L Total Protein (6.3-8.2) g/dL Albumin (3.9-5) g/dL Triglycerides (2-149) mg/dL Arterial Blood Glucose (65-95) mg/dL Arterial Blood Ionized Calcium (4.6-5.3) mg/dL 12/27/20 Range/Units 12:40 WBC (4.5-11.0) K/mm3 Hgb (11.8-15.2) gm/dl MCHC (32-34) % RDW (13.2-15.2) % Plt Count (140-440) K/mm3 ABG pH (7.320-7.450) POC ABG pO2 (83-108) mmHg ABG Hemoglobin (12.0-17.5) ABG Sodium (136.0-145.0) mmol/L ABG Potassium (3.40-4.50) mmol/L ABG Glucose (65-95) mg/dL Sodium 135 L (137-145) mmol/L Potassium (3.6-5.0) mmol/L Carbon Dioxide 21 L (22-30) mmol/L BUN 62 H (9-20) mg/dL Creatinine 3.8 H (0.8-1.3) mg/dL Glucose 132 H (75-100) mg/dL POC Glucose (70-105) mg/dL Calcium 5.6 L* (8.4-10.2) mg/dL Phosphorus (2.5-4.5) mg/dL AST (5-40) units/L Total Protein (6.3-8.2) g/dL Albumin (3.9-5) g/dL Triglycerides (2-149) mg/dL Arterial Blood Glucose (65-95) mg/dL Arterial Blood Ionized Calcium (4.6-5.3) mg/dL HEART Score - HEART Score Troponin: Troponin T < 0.010 ng/mL (0.00-0.029) 12/20/20 13:58
[2020-12-27] MEDS: HYDROCORTISONE SOD SUCC 100 MG/2 ML VIAL IV SCH (18:04)
--- NOTE | 2020-12-27 18:35 | Progress Note ---
Assessment and Plan POD#7 s/p ex lap and small bowel resection for necrotic bowel secondary to incarcerated ventral hernia left with open abdomen. POD#4 s/p abdominal exploration with segmental small bowel resection. abthera placement POD#1 s/p abdominal exploration, small bowel resection for ischemia, abthera placement Tachycardia improved, requiring more pressors compared to a few days ago, leukocytosis consistent with SIRS which is to be expected given pathology. Continue supportive care, since abdomen is open, will take to OR in two days for abdominal wash out and bowel examination. Hope to perform anastamosis if not requiring high pressors. Continue resuscitation. Renal insufficiency - follow up with renal Prognosis is guarded. Subjective Date of service: 12/27/20 Narrative: no acute events overnight Objective Vital Signs - 12hr 12/27/20 12/27/20 12/27/20 06:45 07:00 07:15 Temperature 97.7 F Pulse Rate 85 86 86 Respiratory Rate Respiratory Rate [abd] Respiratory Rate [chest pain] Blood Pressure 118/72 117/70 117/72 O2 Sat by Pulse 100 100 Oximetry 12/27/20 12/27/20 12/27/20 07:27 07:30 07:45 Temperature Pulse Rate 87 87 87 Respiratory Rate Respiratory Rate [abd] Respiratory Rate [chest pain] Blood Pressure 114/73 116/75 111/67 O2 Sat by Pulse 100 100 99 Oximetry 12/27/20 12/27/20 12/27/20 08:00 08:15 08:30 Temperature Pulse Rate 87 87 87 Respiratory 25 H Rate Respiratory 25 H Rate [abd] Respiratory 25 H Rate [chest pain] Blood Pressure 114/71 115/71 115/70 O2 Sat by Pulse 100 100 100 Oximetry 12/27/20 12/27/20 12/27/20 08:45 09:00 09:15 Temperature Pulse Rate 88 88 87 Respiratory Rate Respiratory Rate [abd] Respiratory Rate [chest pain] Blood Pressure 123/72 120/70 122/74 O2 Sat by Pulse 100 100 100 Oximetry 12/27/20 12/27/20 12/27/20 09:30 09:45 10:00 Temperature Pulse Rate 86 85 84 Respiratory Rate Respiratory Rate [abd] Respiratory Rate [chest pain] Blood Pressure 119/72 120/71 115/71 O2 Sat by Pulse 100 100 100 Oximetry 12/27/20 12/27/20 12/27/20 10:15 10:30 10:45 Temperature Pulse Rate 83 83 82 Respiratory Rate Respiratory Rate [abd] Respiratory Rate [chest pain] Blood Pressure 124/75 120/72 123/75 O2 Sat by Pulse 100 100 100 Oximetry 12/27/20 12/27/20 12/27/20 11:00 11:15 11:30 Temperature Pulse Rate 84 99 H 98 H Respiratory Rate Respiratory Rate [abd] Respiratory Rate [chest pain] Blood Pressure 118/71 126/70 126/77 O2 Sat by Pulse 100 99 Oximetry 12/27/20 12/27/20 12/27/20 11:45 12:00 12:07 Temperature 97.9 F Pulse Rate 98 H 97 H 97 H Respiratory 25 H Rate Respiratory 25 H Rate [abd] Respiratory 25 H Rate [chest pain] Blood Pressure 122/71 119/72 172/148 O2 Sat by Pulse 99 99 99 Oximetry 12/27/20 12/27/20 12/27/20 12:15 12:31 12:45 Temperature Pulse Rate 97 H 95 H 94 H Respiratory Rate Respiratory Rate [abd] Respiratory Rate [chest pain] Blood Pressure 131/112 117/71 122/75 O2 Sat by Pulse 99 99 Oximetry 12/27/20 12/27/20 12/27/20 13:00 13:15 13:30 Temperature Pulse Rate 78 77 77 Respiratory Rate Respiratory Rate [abd] Respiratory Rate [chest pain] Blood Pressure 109/64 113/70 112/71 O2 Sat by Pulse 99 100 99 Oximetry 12/27/20 12/27/20 12/27/20 13:45 14:00 14:16 Temperature Pulse Rate 76 77 79 Respiratory Rate Respiratory Rate [abd] Respiratory Rate [chest pain] Blood Pressure 112/69 111/69 90/52 O2 Sat by Pulse 99 99 99 Oximetry 12/27/20 12/27/20 12/27/20 14:30 14:45 15:00 Temperature Pulse Rate 77 76 75 Respiratory Rate Respiratory Rate [abd] Respiratory Rate [chest pain] Blood Pressure 118/73 112/70 113/70 O2 Sat by Pulse 99 98 99 Oximetry 12/27/20 12/27/20 12/27/20 15:15 15:30 15:45 Temperature Pulse Rate 75 76 76 Respiratory Rate Respiratory Rate [abd] Respiratory Rate [chest pain] Blood Pressure 112/68 111/67 112/70 O2 Sat by Pulse 99 99 99 Oximetry 12/27/20 12/27/20 12/27/20 16:00 16:15 16:30 Temperature Pulse Rate 76 77 81 Respiratory Rate Respiratory Rate [abd] Respiratory Rate [chest pain] Blood Pressure 113/68 108/67 109/73 O2 Sat by Pulse 99 99 98 Oximetry 12/27/20 12/27/20 12/27/20 16:35 16:45 17:01 Temperature Pulse Rate 78 78 79 Respiratory Rate Respiratory Rate [abd] Respiratory Rate [chest pain] Blood Pressure 104/64 109/65 99/61 O2 Sat by Pulse 99 100 Oximetry 12/27/20 12/27/20 12/27/20 17:15 17:30 17:45 Temperature Pulse Rate 80 77 76 Respiratory 24 25 H 24 Rate Respiratory Rate [abd] Respiratory Rate [chest pain] Blood Pressure 105/64 107/64 112/64 O2 Sat by Pulse 99 100 100 Oximetry 12/27/20 12/27/20 12/27/20 17:58 18:00 18:15 Temperature 97.5 F L Pulse Rate 78 76 Respiratory 24 24 Rate Respiratory Rate [abd] Respiratory Rate [chest pain] Blood Pressure 105/59 110/61 O2 Sat by Pulse 98 Oximetry - General physical appearance well developed, no distress, no pain, obese - Respiratory normal expansion, normal respiratory effort, other (intubated on vent) - Abdomen soft, other (wound vac in place with SS drainage, NGT bilious) - Genitourinary other (haley with dark urine with sediment) - Labs 12/27/20 04:15 12/27/20 12:40 Diabetes panel 12/26/20 12/27/20 12/27/20 Range/Units 22:00 04:15 12:40 Sodium 142 136 L 135 L (137-145) mmol/L Potassium 5.8 H D 6.0 H 5.0 (3.6-5.0) mmol/L Chloride 105.6 102.7 101.6 (98-107) mmol/L Carbon Dioxide 21 L 18 L 21 L (22-30) mmol/L BUN 68 H 68 H 62 H (9-20) mg/dL Creatinine 4.1 H 4.1 H 3.8 H (0.8-1.3) mg/dL Glucose 154 H 166 H 132 H (75-100) mg/dL Calcium 5.8 L* 6.2 L 5.6 L* (8.4-10.2) mg/dL AST 215 H (5-40) units/L ALT 32 (7-56) units/L Alkaline Phosphatase 54 (35-129) units/L Total Protein 4.7 L (6.3-8.2) g/dL Albumin 1.5 L (3.9-5) g/dL Triglycerides 164 H (2-149) mg/dL Calcium panel 12/26/20 12/27/20 12/27/20 Range/Units 22:00 04:15 12:40 Calcium 5.8 L* 6.2 L 5.6 L* (8.4-10.2) mg/dL Phosphorus 7.30 H D (2.5-4.5) mg/dL Albumin 1.5 L (3.9-5) g/dL Pituitary panel 12/26/20 12/27/20 12/27/20 Range/Units 22:00 04:15 12:40 Sodium 142 136 L 135 L (137-145) mmol/L Potassium 5.8 H D 6.0 H 5.0 (3.6-5.0) mmol/L Chloride 105.6 102.7 101.6 (98-107) mmol/L Carbon Dioxide 21 L 18 L 21 L (22-30) mmol/L BUN 68 H 68 H 62 H (9-20) mg/dL Creatinine 4.1 H 4.1 H 3.8 H (0.8-1.3) mg/dL Glucose 154 H 166 H 132 H (75-100) mg/dL Calcium 5.8 L* 6.2 L 5.6 L* (8.4-10.2) mg/dL Adrenal panel 12/26/20 12/27/20 12/27/20 Range/Units 22:00 04:15 12:40 Sodium 142 136 L 135 L (137-145) mmol/L Potassium 5.8 H D 6.0 H 5.0 (3.6-5.0) mmol/L Chloride 105.6 102.7 101.6 (98-107) mmol/L Carbon Dioxide 21 L 18 L 21 L (22-30) mmol/L BUN 68 H 68 H 62 H (9-20) mg/dL Creatinine 4.1 H 4.1 H 3.8 H (0.8-1.3) mg/dL Glucose 154 H 166 H 132 H (75-100) mg/dL Calcium 5.8 L* 6.2 L 5.6 L* (8.4-10.2) mg/dL Total Bilirubin 0.80 (0.1-1.2) mg/dL AST 215 H (5-40) units/L ALT 32 (7-56) units/L Alkaline Phosphatase 54 (35-129) units/L Total Protein 4.7 L (6.3-8.2) g/dL Albumin 1.5 L (3.9-5) g/dL
[2020-12-27] MEDS ORDERED: TOTAL PARENTERAL NUTRITION 2,400 ML IV SCH (20:00)
[2020-12-28] MEDS: HYDROCORTISONE SOD SUCC 100 MG/2 ML VIAL IV SCH (02:20)
[2020-12-28] MEDS: fentaNYL DRIP Premix 2,000 MCG/100 ML BAG IV SCH ×5 (03:57→22:11)
[2020-12-28] MEDS: PIPERACIL/TAZOBACTA 4.5/NS 100 4.5 GM/100 ML VIAL IV SCH ×2 (06:10→18:16)
[2020-12-28] MEDS: INSULIN REGULAR, HUMAN 100 UNITS/1 ML SUB-Q SCH ×3 (06:15→18:00)
[2020-12-28] MEDS ORDERED: CALCIUM GLUCONATE 2,000 MG in SODIUM CHLORIDE 0.9% 100 ML IV ONE (06:23)
--- NOTE | 2020-12-28 06:55 | Event Note ---
Date: 12/28/20 Called by patient nurse with abnormal lab values. Sodium level 104, potassium 3.2, chloride 79.6, CO2 10.0 calcium 3.6, and magnesium 0.9. I reviewed the patient's previous lab record and there is a great difference from yesterday morning and this morning. Patient was advised to repeat lab blood work. We will follow-up with results.
[2020-12-28 06:56] LABS: BUN/Creatinine Ratio TNR; Blood Urea Nitrogen TNR mg/dL (9-20); Calcium TNR mg/dL (8.4-10.2); Hemolysis Index TNR
[2020-12-28] MEDS ORDERED: SODIUM CHLORIDE 0.9% 1000 ML 1,000 ML ONE ×2 (07:13→13:17)
[2020-12-28 08:15] LABS: Hematocrit 30.8 % (35.5-45.6); Hemoglobin 9.6 gm/dl (11.8-15.2); Mean Corpuscular HGB Conc 31 % (32-34); Mean Corpuscular Volume 88 fl (84-94); Platelet Count 111 K/mm3 (140-440); Red Cell Distribution Width 16.1 % (13.2-15.2)
[2020-12-28 08:43] LABS: Albumin 1.3 g/dL (3.9-5); Calcium 6.3 mg/dL (8.4-10.2)
--- NOTE | 2020-12-28 08:46 | Progress Note ---
Assessment and Plan Assessment and plan: This is a 60-year-old male with obesity, hypertension, nicotine dependence, PVD s/p stent placement on dual antiplatelet therapy, hyperlipidemia, OA, GERD, ventral hernia and small bowel obstruction who was admitted with small bowel obstruction and peritonitis Septic Shock, POA (presented with leukocytosis, tachycardia, tachypnea,febrile and evidence of peritonitis) COVID-19 PUI, ruled out Small bowel obstruction with peritonitis Ventral hernia Leukocytosis Hypernatremia Hypercholremia Hypocalcemia Acute Kidney Injury Obesity Hypertension Nicotine dependence CAD s/p stent placement Hyperlipidemia Osteoarthritis GERD History Interval history: This is a 60-year-old male with obesity, hypertension, nicotine dependence, PVD s/p stent placement on dual antiplatelet therapy, hyperlipidemia, OA, GERD, ventral hernia with SBO who presents to the emergency department on 12/20 with severe, diffuse, worsened with movement, slightly relieved with rest abdominal pain rated at 10/10 with decreased oral intake, nausea and multiple episodes of vomiting. Patient underwent a CT of his abdomen/pelvis and was found to have evidence of small bowel obstruction as well as clinical findings consistent with acute peritonitis. Patient was admitted to the hospital service with acute peritonitis and incarcerated ventral hernia with consults to [facility] and surgery. 12/21: Patient is status post ex lap, extensive lysis of adhesions, small bowel resection, peritoneal lavage and ABThera abdominal wound VAC placement by Dr. Tena and Dr. Brumfield on 12/20 with removal of a 70 cm segment of necrotic small bowel. Patient was intubated and sedated on propofol 10/ 4 at the time of my examination on Assist-control, rate of 24, PEEP of 6, tidal volume of 550 and FiO2 35%. Patient needed to be deeply sedated and there was a became hypotensive. Patient was started on patient for support with Levophed and received bolus of IVF. 12/22: Patient was febrile to 103 and vancomycin and Diflucan were added by [facility] and infectious disease was consulted and they increased Zosyn and stop vancomycin. Patient was given additional 1 L bolus today for CVP goal of 10-12. At the time of examination patient was on Levophed, propofol and fentanyl CMV tidal volume 500, rate of 24, PEEP of 6 and FiO2 65%. Plan for OR tomorrow 12/23: Patient Cr/BUN noted to be increased and nephrology was consulted. ID decreased the zosyn dose d/r renal function. Urine studies ordered. [place] placed today. LR boluses per [facility], TPN to be started. Fractional excretion of sodium calculated at 0.16 indicating prerenal state 12/24: Patient is status post abdominal exploration, small bowel resection of 4 to 5 cm segment of dusky small bowel, peritoneal lavage and ABThera wound VAC placement on 12/23 with surgery, leukocytosis and renal function is improving, worsening hypernatremia and hyperchloremia. Patient will be started on TPN today. We will place on SSI/Accu-Cheks every every 6 hours. Patient noted to be nearly maxed on Levophed and vasopressin was ordered. Remains sedated and on MV 12/25: Leukocytosis continues to improve, given Ca Gluconate today, Hypernatremia, Cr and hyperchorlemia slightly worsened today. Patient is sedated with propofol and fentanyl on CMV TV 500, Rate 24, Peep 6, FiO2 50%. He remains on levophed. Possible OR Saturday. 12/28: Patient is orally intubated with AC mode ventilation rate 24, tidal volume 500, FiO2 75% and PEEP of 6. POD#8 s/p ex lap and small bowel resection for necrotic bowel secondary to incarcerated ventral hernia left with open abdomen. POD#5 s/p abdominal exploration with segmental small bowel resection. abthera placement POD#2 s/p abdominal exploration, small bowel resection for ischemia, abthera placement -[facility], surgery, infectious disease, nephrology consulted, appreciate recommendations -IV abx per ID: Zosyn, fluconazole -NGT to LIWS -NPO for now, TPN -SSI, Accucheck q6 -Vasopressor support with levophed -On mechanical ventilation, wean as tolerated, VAP bundle -Sedated with propofol and analgesia with fentanyl drip -Trend CBC, BMP, Mg, Phos -GI/DVT prophylaxis: PPI, SCDs to bilateral lower extremities while in bed, avoid chemical anticoagulation to cleared by surgery The high probability of a clinically significant, sudden or life threatening deterioration of the [multi] system(s) required my full and direct attention, intervention and personal management. The aggregate critical care time was [35] minutes. This time is in addition to time spent performing reported procedures but includes the following: [x] Data Review and interpretation [x] Patient assessment and monitoring of vital signs [x] Documentation [x] Medication orders and management History Interval history: No new issues overnight. Hospitalist Physical - Constitutional Vitals: Temp Pulse Resp BP Pulse Ox 97.8 F 75 13 109/58 96 12/28/20 07:00 12/28/20 07:15 12/28/20 06:00 12/28/20 07:15 12/28/20 07:15 General appearance: Present: no acute distress, well-nourished - EENT Eyes: Present: PERRL, EOM intact ENT: hearing intact, clear oral mucosa, dentition normal - Neck Neck: Present: supple, normal ROM - Respiratory Respiratory effort: normal Respiratory: bilateral: CTA - Cardiovascular Rhythm: regular Heart Sounds: Present: S1 & S2. Absent: gallop, rub - Extremities Extremities: no ischemia, No edema, Full ROM - Abdominal General gastrointestinal: soft, non-tender, non-distended, normal bowel sounds - Integumentary Integumentary: Present: clear, warm, dry - Neurologic Neurologic: CNII-XII intact, moves all extremities HEART Score - HEART Score Troponin: Troponin T < 0.010 ng/mL (0.00-0.029) 12/20/20 13:58 Results - Labs CBC & Chem 7: 12/28/20 07:28 12/28/20 07:28 Labs: Laboratory Last Values WBC 27.2 K/mm3 (4.5-11.0) H 12/28/20 07:28 RBC 3.50 M/mm3 (3.65-5.03) L 12/28/20 07:28 Hgb 9.6 gm/dl (11.8-15.2) L 12/28/20 07:28 Hct 30.8 % (35.5-45.6) L 12/28/20 07:28 MCV 88 fl (84-94) 12/28/20 07:28 MCH 28 pg (28-32) 12/28/20 07:28 MCHC 31 % (32-34) L 12/28/20 07:28 RDW 16.1 % (13.2-15.2) H 12/28/20 07:28 Plt Count 111 K/mm3 (140-440) L 12/28/20 07:28 Add Manual Diff Complete 12/21/20 08:14 Total Counted 100 12/21/20 08:14 Seg Neutrophils % Registered Nurse Post Partum 12/28/20 07:28 Seg Neuts % (Manual) 91.0 % (40.0-70.0) H 12/21/20 08:14 Lymphocytes % (Manual) 3.0 % (13.4-35.0) L 12/21/20 08:14 Monocytes % (Manual) 6.0 % (0.0-7.3) 12/21/20 08:14 Nucleated RBC % Not Reportable 12/21/20 08:14 Seg Neutrophils # Man 21.7 K/mm3 (1.8-7.7) H 12/21/20 08:14 Band Neutrophils # 0.0 K/mm3 12/21/20 08:14 Lymphocytes # (Manual) 0.7 K/mm3 (1.2-5.4) L 12/21/20 08:14 Abs React Lymphs (Man) 0.0 K/mm3 12/21/20 08:14 Monocytes # (Manual) 1.4 K/mm3 (0.0-0.8) H 12/21/20 08:14 Eosinophils # (Manual) 0.0 K/mm3 (0.0-0.4) 12/21/20 08:14 Basophils # (Manual) 0.0 K/mm3 (0.0-0.1) 12/21/20 08:14 Metamyelocytes # 0.0 K/mm3 12/21/20 08:14 Myelocytes # 0.0 K/mm3 12/21/20 08:14 Promyelocytes # 0.0 K/mm3 12/21/20 08:14 Blast Cells # 0.0 K/mm3 12/21/20 08:14 WBC Morphology Not Reportable 12/21/20 08:14 Hypersegmented Neuts Not Reportable 12/21/20 08:14 Hyposegmented Neuts Not Reportable 12/21/20 08:14 Hypogranular Neuts Not Reportable 12/21/20 08:14 Smudge Cells Not Reportable 12/21/20 08:14 Toxic Granulation Not Reportable 12/21/20 08:14 Toxic Vacuolation Not Reportable 12/21/20 08:14 Dohle Bodies Not Reportable 12/21/20 08:14 Pelger-Huet Anomaly Not Reportable 12/21/20 08:14 Mirian Rods Not Reportable 12/21/20 08:14 Platelet Estimate Consistent w auto 12/21/20 08:14 Clumped Platelets Not Reportable 12/21/20 08:14 Plt Clumps, EDTA Not Reportable 12/21/20 08:14 Large Platelets Not Reportable 12/21/20 08:14 Giant Platelets Not Reportable 12/21/20 08:14 Platelet Satelliting Not Reportable 12/21/20 08:14 Plt Morphology Comment Not Reportable 12/21/20 08:14 RBC Morphology Normal 12/21/20 08:14 Dimorphic RBCs Not Reportable 12/21/20 08:14 Polychromasia Not Reportable 12/21/20 08:14 Hypochromasia Not Reportable 12/21/20 08:14 Poikilocytosis Not Reportable 12/21/20 08:14 Anisocytosis Not Reportable 12/21/20 08:14 Microcytosis Not Reportable 12/21/20 08:14 Macrocytosis Not Reportable 12/21/20 08:14 Spherocytes Not Reportable 12/21/20 08:14 Pappenheimer Bodies Not Reportable 12/21/20 08:14 Sickle Cells Not Reportable 12/21/20 08:14 Target Cells Not Reportable 12/21/20 08:14 Tear Drop Cells Not Reportable 12/21/20 08:14 Ovalocytes Not Reportable 12/21/20 08:14 Helmet Cells Not Reportable 12/21/20 08:14 Mart-Geyser Bodies Not Reportable 12/21/20 08:14 [place] Rings Not Reportable 12/21/20 08:14 Jonathan Cells Not Reportable 12/21/20 08:14 Bite Cells Not Reportable 12/21/20 08:14 Crenated Cell Not Reportable 12/21/20 08:14 Elliptocytes Not Reportable 12/21/20 08:14 Acanthocytes (Spur) Not Reportable 12/21/20 08:14 Rouleaux Not Reportable 12/21/20 08:14 Hemoglobin C Crystals Not Reportable 12/21/20 08:14 Schistocytes Not Reportable 12/21/20 08:14 Malaria parasites Not Reportable 12/21/20 08:14 Dylon Bodies Not Reportable 12/21/20 08:14 Hem Pathologist Commnt No 12/21/20 08:14 APTT 49.4 Sec. (24.2-36.6) H 12/20/20 13:58 ABG pH 7.200 (7.320-7.450) L 12/28/20 07:08 POC ABG pCO2 45.2 mmHg (32.0-48.0) 12/28/20 07:08 ABG pCO2 51.0 mm Hg 12/20/20 21:30 POC ABG pO2 67.2 mmHg (83-108) L 12/28/20 07:08 ABG pO2 104.4 mm Hg (80.0-90.0) H 12/20/20 21:30 POC ABG HCO3 17.3 12/28/20 07:08 ABG HCO3 25.3 mmol/L (20.0-26.0) 12/20/20 21:30 ABG O2 Saturation 90.2 (0-100) 12/28/20 07:08 ABG O2 Content 20.3 (0.0-44) 12/20/20 21:30 POC ABG Base Excess -10.3 12/28/20 07:08 ABG Base Excess -1.7 mmol/L (-2.0-3.0) 12/20/20 21:30 ABG Hemoglobin 10.3 (12.0-17.5) L 12/28/20 07:08 ABG Oxyhemoglobin 89.6 (94-98) L 12/28/20 07:08 ABG Carboxyhemoglobin 1.3 % (0.0-5.0) 12/20/20 21:30 ABG Methemoglobin 0.3 (0.0-1.5) 12/28/20 07:08 ABG Sodium 127.8 mmol/L (136.0-145.0) L 12/28/20 07:08 ABG Potassium 5.1 mmol/L (3.40-4.50) H 12/28/20 07:08 ABG Chloride 103.0 mmol/L (98-107) 12/28/20 07:08 ABG Glucose 132 mg/dL (65-95) H 12/28/20 07:08 Oxyhemoglobin 95.2 % (95.0-99.0) 12/20/20 21:30 Carboxyhemoglobin 0.4 (0.5-1.5) L 12/28/20 07:08 FiO2 100 % 12/20/20 21:30 FiO2 % 75.0 12/28/20 07:08 Sodium TNR 12/28/20 05:54 Potassium TNR 12/28/20 05:54 Chloride TNR 12/28/20 05:54 Carbon Dioxide TNR 12/28/20 05:54 Anion Gap TNR 12/28/20 05:54 BUN TNR 12/28/20 05:54 Creatinine TNR 12/28/20 05:54 Estimated GFR TNR 12/28/20 05:54 BUN/Creatinine Ratio TNR 12/28/20 05:54 Glucose TNR 12/28/20 05:54 POC Glucose 130 mg/dL (70-105) H 12/27/20 23:17 Lactic Acid 1.70 mmol/L (0.7-2.0) 12/20/20 16:20 Calcium TNR 12/28/20 05:54 Ionized Calcium 4.1 mg/dL (4.8-5.6) L 12/21/20 21:28 Phosphorus TNR 12/28/20 05:54 Magnesium TNR 12/28/20 05:54 Total Bilirubin 0.80 mg/dL (0.1-1.2) 12/26/20 22:00 AST 215 units/L (5-40) H 12/26/20 22:00 ALT 32 units/L (7-56) 12/26/20 22:00 Alkaline Phosphatase 54 units/L (35-129) 12/26/20 22:00 Troponin T < 0.010 ng/mL (0.00-0.029) 12/20/20 13:58 Total Protein 4.7 g/dL (6.3-8.2) L 12/26/20 22:00 Albumin 1.5 g/dL (3.9-5) L 12/26/20 22:00 Albumin/Globulin Ratio 0.5 % 12/26/20 22:00 Triglycerides 164 mg/dL (2-149) H 12/27/20 04:15 Arterial Blood Glucose 132 mg/dL (65-95) H 12/28/20 07:08 Arterial Blood Ionized Calcium 3.5 mg/dL (4.6-5.3) L 12/28/20 07:08 Urine Color Yellow (Yellow) 12/23/20 12:15 Urine Turbidity Cloudy (Clear) 12/23/20 12:15 Urine pH 5.0 (5.0-7.0) 12/23/20 12:15 Ur Specific [place] 1.019 (1.003-1.030) 12/23/20 12:15 Urine Protein <15 mg/dl mg/dL (Negative) 12/23/20 12:15 Urine Glucose (UA) Neg mg/dL (Negative) 12/23/20 12:15 Urine Ketones Neg mg/dL (Negative) 12/23/20 12:15 Urine Blood Sm (Negative) 12/23/20 12:15 Urine Nitrite Neg (Negative) 12/23/20 12:15 Urine Bilirubin Neg (Negative) 12/23/20 12:15 Urine Urobilinogen < 2.0 mg/dL (<2.0) 12/23/20 12:15 Ur Leukocyte Esterase Neg (Negative) 12/23/20 12:15 Urine WBC (Auto) 5.0 /HPF (0.0-6.0) 12/23/20 12:15 Urine RBC (Auto) 2.0 /HPF (0.0-6.0) 12/23/20 12:15 U Epithel Cells (Auto) < 1.0 /HPF (0-13.0) 12/20/20 Unknown Urine Bacteria (Auto) 1+ /HPF (Negative) 12/23/20 12:15 Triple Phos Crystals 2+ 12/23/20 12:15 Hyaline Casts 19 /LPF 12/20/20 Unknown Urine Mucus Few /HPF 12/23/20 12:15 Urine Eosinophils None seen (None Seen) 12/23/20 12:15 Urine Creatinine 78.1 mg/dL (0.1-20.0) H 12/23/20 12:15 Urine Sodium 13 mmol/L 12/23/20 12:15 Fraction Sodium Excret 0.2 12/23/20 12:15 Random Vancomycin 7.9 ug/mL (0-40.0) 12/23/20 12:15 Coronavirus (PCR) Negative (Negative) 12/21/20 Unknown Blood Type A NEGATIVE 12/26/20 06:08 Antibody Screen Negative 12/26/20 06:08 [place]/IV: Voiding Method Indwelling Catheter Active Medications - Current Medications Current Medications: Generic Name Dose Route Start Last Admin Trade Name Freq PRN Reason Stop Dose Admin Acetaminophen 650 mg 12/21/20 11:51 12/25/20 20:35 Acetaminophen 650 Mg Rect Supp [place] 650 mg Q4H PRN Administration TEMP >/=100.4 Dextrose 50 ml 12/24/20 10:49 Dextrose 50% In Water (25gm) 50 Ml Syringe IV Q30MIN PRN Hypoglycemia Protocol Famotidine 20 mg 12/26/20 10:00 12/27/20 09:08 Famotidine 20 Mg/2 Ml Inj IV 20 mg DAILY ASCENCION Administration Fentanyl 50 mcg 12/20/20 21:58 12/21/20 03:46 Fentanyl 100 Mcg/2 Ml Inj IV 50 mcg Q10MIN PRN Administration ANALGESIA Hydrophilic Ointment 1 applic 12/20/20 21:58 Lip Therapy Vaseline TP Q2HR PRN Dry Lips Fentanyl Citrate 2,000 mcg in 100 mls @ 6.01 mls/hr 12/20/20 22:00 12/28/20 03:57 Fentanyl Drip Premix IV 4 mcg/kg/hr TITR ASCENCION 24.04 mls/hr Administration Protocol 1 MCG/KG/HR Propofol 1,000 mg in 100 mls @ 3.606 mls/hr 12/20/20 22:00 12/28/20 04:31 Diprivan 10 Mg/Ml IV 35 mcg/kg/min TITR ASCENCION 25.242 mls/hr Administration Protocol 5 MCG/KG/MIN NORepinephrine/NS 8 MG-250 ML 8 mg in 250 mls @ 3.75 mls/hr 12/21/20 09:00 12/27/20 22:49 Norepinephrine/Ns 8 Mg-250 Ml (Double Conc) IV 6 mcg/min TITRATE ASCENCION 11.25 mls/hr Administration Protocol 2 MCG/MIN Vasopressin 20 unit/ Sodium 101 mls @ 9.09 mls/hr 12/24/20 09:00 12/27/20 22:49 Chloride IV 0.03 units/min TITR ASCENCION 9.09 mls/hr Administration Protocol 0.03 UNITS/MIN Piperacillin Sod/Tazobactam Sod 4.5 gm in 100 mls @ 200 mls/hr 12/26/20 18:00 12/28/20 06:10 Zosyn/Ns 4.5gm/100ml IV 200 mls/hr Q12H ASCENCION Administration Protocol Fluconazole 200 mg in 100 mls @ 100 mls/hr 12/26/20 10:00 12/27/20 09:07 Diflucan IV 100 mls/hr Q24H ASCENCION Administration Protocol Amino Acids/Electrolytes/Dextrose 2,400 mls @ 100 mls/hr 12/27/20 20:00 06/0 03/11 20:32 Tpn Adult IV 12/28/20 19:59 100 mls/hr DAILY@1999 ASCENCION Administration Protocol Insulin Human Regular 0 units 12/28/20 00:00 12/28/20 06:15 Insulin Regular, Human 100 Units/1 Ml SUB-Q Not Given Q6H [facility] Protocol Multi-Ingred Cream/Lotion/Oil/Oint 1 applic 12/20/20 21:58 Mineral Oil/Petrolatum, White Ophth Oint 3.5 Gm OU Q4HR PRN Dry Eye(s) Sodium Chloride 10 ml 12/20/20 22:00 12/27/20 21:04 Sodium Chloride 0.9% 10 Ml Flush Syringe IV 10 ml BID ASCENCION Administration Sodium Chloride 10 ml 12/20/20 16:42 Sodium Chloride 0.9% 10 Ml Flush Syringe IV PRN PRN LINE FLUSH Nutrition/Malnutrition Assess - Dietary Evaluation Nutrition/Malnutrition Findings: Nutrition Notes Start: 12/21/20 09:06 Freq: Status: Active Protocol: Document 12/27/20 07:54 (Rec: 12/27/20 08:04 PIETRO [id number]) Nutrition Notes Initial or Follow up Reassessment Current Diagnosis Coronary Artery Disease, Hypertension,Small Bowel Obstruction,Hyperlipidemia Other Pertinent Diagnosis gangrenous small bowel, s/p small bowel ressection, peritonitis Current Diet TPN at 100 ml/hr Labs/Tests Na 136 K 6 BUN 68 Cr 4.1 BG 166 Phos 7.3 Pertinent Medications Norepi Propofol at 25.242 ml/hr (663 kcal) D5w at 100 ml/hr 4L LR Height 6 ft Weight 121.1 kg [place] Body Weight (kg) 80.90 BMI 36.2 Weight Status Morbidly Obese Subjective/Other Information Day 4 TPN. Will leave Na at minimum per Renal. Will increase protein when renal function improves. Pt with more small bowel removed on 12/26. Percent of energy/protein needs met: 88%/46% Burn Absent Trauma Absent GI Symptoms Other Current % PO Negligible Minimum of two criteria No physical signs of malnutrition #2 Nutrition Diagnosis Increased nutrient needs ( specify in comment below) Diagnosis Progress(for reassessment Continues documentation) #1 Nutrition Diagnosis Inadequate oral intake Diagnosis Progress(for reassessment Continues documentation) Is patient on ventilator? Yes Is Patient Ambulatory and/or Out of Bed No REE-([place]-confined to bed) 2481.012 Kcal/Kg value to use for calculation 17 Approximate Energy Requirements Using 2058 kcal/Kg Calculation Used for Recommendations Kcal/kg Additional Notes Protein: >2g/IBW (>162g) Fluid: 1 ml/kcal or per MD Nutrition Intervention Change Diet Order: Continue CPN Nutrition Support: CPN at 100 ml/hr; Dextrose 12. 5%; Ca 0 mEq, MVI, MTE Osmolality 946 Kcal 1,320 Protein (gm) 75 Carbohydrates (gm) 300 Fat (gm) 0 Fluid (mL) 2,400 Goal #1 Meet needs as best as possible via CPN Anticipated Discharge Needs: Unable to determine at this time Follow-Up By: 12/28/20 Additional Comments Labs in AM: BMP, Mg, Phos
[2020-12-28] MEDS ORDERED: INSULIN REGULAR, HUMAN 100 UNITS/1 ML IV SCH (10:00)
[2020-12-28] MEDS ORDERED: DEXTROSE 50% IN WATER (25GM) 50 ML SYRINGE IV ONE (10:00)
[2020-12-28] MEDS: FAMOTIDINE 20 MG/2 ML INJ IV SCH (10:10)
--- NOTE | 2020-12-28 10:21 | XRay Report ---
CHEST 1 VIEW INDICATION / CLINICAL INFORMATION: follow up respiratory failure. COMPARISON: 12/23/2020 FINDINGS: SUPPORT DEVICES: Stable, satisfactory device positioning. HEART / MEDIASTINUM: Stable. LUNGS / PLEURA: Bilateral perihilar and lower lobe pulmonary opacities are stable when compared to th e prior exam. No pneumothorax. ADDITIONAL FINDINGS: No significant additional findings. IMPRESSION: 1. No significant interval change when compared to 12/23/2020 Signer Name: Dong Vo MD Signed: 12/28/2020 10:16 AM Workstation Name: [id number]
[2020-12-28] MEDS ORDERED: ALTEPLASE 2 MG INJ IV ONE (10:30)
--- NOTE | 2020-12-28 10:47 | Progress Note ---
Assessment and Plan Impression * Acute kidney injury. 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 Likely with some obstructive nephropathy as well, excellent urine output over past 24 hours * His urine shows trace protein and only 2 RBCs per high-power field. Fractional excretion of sodium is 0.2% . His baseline creatinine is approximately 0.7. * Creatinine worsened from 2.6->3.8->4.1->4.0, likely stabilizing * Note K 5.9 this AM, agree with aggressive medical measures * Will consider renal replacement therapy if not improving tomorrow as he is remains with mild hyperkalemia but now with worsening acidosis. Will be hard to tolerate HD given ongoing hypotension, need for vaso and levo * Agree with ongoing aggressive IV hydration, will start HCO3 gtt given acidosis, ideally prefer isotonic crystalloid for maintenance in addition to TPN * Patient currently has indwelling Lawrence catheter in place and is also nonoliguric. * TPN per nutrition/primary * Pressors to maintain MAP greater than 65 * Avoid nephrotoxins * Monitor fluid status and electrolytes closely Subjective Date of service: 12/28/20 Principal diagnosis: SBO and necrosis of large part of small intestine Interval history: Remains intubated, sedated on pressors Objective - Exam Narrative Exam: General appearance: ill appearing appears stated age, intubated EENT: PERRL, mucous membranes moist Neck: no JVD Respiratory: Present: Ronchi (Few scattered rhonchi) Cardiology: regular, normal heart rate Gastrointestinal: other (Midline incision noted. Wound VAC in place.) Integumentary: other (No edema) - Vital Signs Vital signs: Vital Signs - 12hr 12/27/20 12/27/20 12/27/20 23:00 23:15 23:30 Temperature Pulse Rate 73 73 73 Respiratory 24 24 24 Rate Blood Pressure 104/57 106/55 105/57 O2 Sat by Pulse 96 98 93 Oximetry 12/27/20 12/27/20 12/27/20 23:36 23:45 23:51 Temperature 96.9 F L Pulse Rate 73 73 Respiratory 24 24 Rate Blood Pressure 105/53 103/53 O2 Sat by Pulse 94 96 Oximetry 12/27/20 12/28/20 12/28/20 23:52 00:00 00:15 Temperature Pulse Rate 73 73 73 Respiratory 24 24 Rate Blood Pressure 105/54 103/54 O2 Sat by Pulse 93 93 Oximetry 12/28/20 12/28/20 12/28/20 00:25 00:30 00:45 Temperature Pulse Rate 74 74 76 Respiratory 22 24 Rate Blood Pressure 108/57 99/56 103/54 O2 Sat by Pulse 96 98 97 Oximetry 12/28/20 12/28/20 12/28/20 01:00 01:15 01:30 Temperature Pulse Rate 73 73 73 Respiratory 24 24 24 Rate Blood Pressure 101/53 104/55 105/54 O2 Sat by Pulse 97 96 95 Oximetry 12/28/20 12/28/20 12/28/20 01:45 02:00 02:16 Temperature Pulse Rate 74 73 74 Respiratory 24 24 24 Rate Blood Pressure 109/54 106/55 103/53 O2 Sat by Pulse 97 97 98 Oximetry 12/28/20 12/28/20 12/28/20 02:30 02:45 03:00 Temperature Pulse Rate 73 72 73 Respiratory 24 24 24 Rate Blood Pressure 101/53 106/53 108/55 O2 Sat by Pulse 96 98 95 Oximetry 12/28/20 12/28/20 12/28/20 03:15 03:30 03:45 Temperature Pulse Rate 74 76 73 Respiratory 24 24 21 Rate Blood Pressure 106/55 106/56 101/59 O2 Sat by Pulse 95 96 97 Oximetry 12/28/20 12/28/20 12/28/20 03:56 04:00 04:15 Temperature 97.2 F L Pulse Rate 73 73 Respiratory 24 24 Rate Blood Pressure 112/59 110/58 O2 Sat by Pulse 96 94 Oximetry 12/28/20 12/28/20 12/28/20 04:19 04:30 04:45 Temperature Pulse Rate 73 73 74 Respiratory 24 23 Rate Blood Pressure 110/58 111/62 101/51 O2 Sat by Pulse 97 95 95 Oximetry 12/28/20 12/28/20 12/28/20 05:00 05:15 05:30 Temperature Pulse Rate 73 73 74 Respiratory 21 5 L 13 Rate Blood Pressure 110/57 112/58 112/59 O2 Sat by Pulse 97 94 96 Oximetry 12/28/20 12/28/20 12/28/20 05:45 06:00 06:15 Temperature Pulse Rate 73 74 71 Respiratory 18 13 24 Rate Blood Pressure 114/61 112/60 114/57 O2 Sat by Pulse 93 93 96 Oximetry 12/28/20 12/28/20 12/28/20 06:30 06:45 07:00 Temperature 97.8 F Pulse Rate 73 76 74 Respiratory 24 25 H 19 Rate Blood Pressure 107/54 99/48 114/59 O2 Sat by Pulse 92 93 96 Oximetry 12/28/20 12/28/20 12/28/20 07:15 07:30 07:45 Temperature Pulse Rate 75 75 75 Respiratory 18 24 15 Rate Blood Pressure 109/58 104/54 101/52 O2 Sat by Pulse 95 92 96 Oximetry 12/28/20 12/28/20 12/28/20 08:00 08:15 08:30 Temperature Pulse Rate 75 74 74 Respiratory 24 24 24 Rate Blood Pressure 104/55 109/55 107/53 O2 Sat by Pulse 98 92 89 Oximetry 12/28/20 08:45 Temperature Pulse Rate 73 Respiratory 24 Rate Blood Pressure 117/56 O2 Sat by Pulse 90 Oximetry - Lab 12/28/20 07:28 12/28/20 07:28 Most recent lab results ABG pH 7.200 (7.320-7.450) L 12/28/20 07:08 ABG pCO2 51.0 mm Hg 12/20/20 21:30 ABG pO2 104.4 mm Hg (80.0-90.0) H 12/20/20 21:30 ABG HCO3 25.3 mmol/L (20.0-26.0) 12/20/20 21:30 ABG O2 Saturation 90.2 (0-100) 12/28/20 07:08 Calcium 6.3 mg/dL (8.4-10.2) L 12/28/20 07:28 Phosphorus 7.10 mg/dL (2.5-4.5) H 12/28/20 07:28 Magnesium 1.90 mg/dL (1.7-2.3) 12/28/20 07:28 Urine Creatinine 78.1 mg/dL (0.1-20.0) H 12/23/20 12:15 Urine Sodium 13 mmol/L 12/23/20 12:15 Medications & Allergies - Medications Allergies/Adverse Reactions: Allergies Iodinated Contrast Media Adverse Reaction (Verified 09/04/18 14:20) Unknown Home Medications: Home Medications Medication Instructions Recorded Confirmed Last Taken Type Aspirin 81 mg PO DAILY #30 tab.chew 09/08/18 09/12/20 03/31/20 09:28 Rx AtorvaSTATin [Lipitor] 80 mg PO QHS tablet 05/08/19 09/12/20 03/28/20 Rx Albuterol Sulfate [Proventil Hfa] 13.4 gm IH Q6H #1 hfa.aer.ad 04/01/20 09/12/20 Unknown Rx Clopidogrel [Plavix] 75 mg PO DAILY #30 tablet 04/01/20 09/12/20 Unknown Rx Gabapentin 300 mg PO BID@0700,1800 30 Days 04/01/20 09/12/20 Unknown Rx capsule Gabapentin 600 mg PO QHS 30 Days capsule 04/01/20 09/12/20 Unknown Rx Metoprolol [Lopressor TAB] 25 mg PO BID #60 tablet 04/01/20 09/12/20 Unknown Rx [place]-3/Dha/Epa/Fish Oil [[place] 3 1 each PO BID #60 capsule 04/01/20 09/12/20 Unknown Rx 500 Softgel] Tiotropium [place] [Spiriva] 2 puff IH DAILY #30 cap.w.dev 04/01/20 09/12/20 Unknown Rx Ubidecarenone [Co Q-10] 10 mg PO BID #60 tab 04/01/20 09/12/20 03/29/20 Rx cilostazoL [Pletal] 50 mg PO BID 30 Days tablet 04/01/20 09/12/20 Unknown Rx oxyCODONE /ACETAMINOPHEN [Percocet 2 tab PO Q6H PRN tablet 04/01/20 09/12/20 Unknown Rx 5/325 mg] Phosphorus #1 [K-Phos Neutral] 250 mg PO QID 2 Days #8 tablet 09/14/20 Unknown Rx Active Medications: Generic Name Dose Route Start Last Admin Trade Name Freq PRN Reason Stop Dose Admin Acetaminophen 650 mg 12/21/20 11:51 12/25/20 20:35 Acetaminophen 650 Mg Rect Supp [place] 650 mg Q4H PRN Administration TEMP >/=100.4 Dextrose 50 ml 12/24/20 10:49 Dextrose 50% In Water (25gm) 50 Ml Syringe IV Q30MIN PRN Hypoglycemia Protocol Famotidine 20 mg 12/26/20 10:00 12/28/20 10:10 Famotidine 20 Mg/2 Ml Inj IV 20 mg DAILY ASCENCION Administration Fentanyl 50 mcg 12/20/20 21:58 12/21/20 03:46 Fentanyl 100 Mcg/2 Ml Inj IV 50 mcg Q10MIN PRN Administration ANALGESIA Hydrophilic Ointment 1 applic 12/20/20 21:58 Lip Therapy Vaseline TP Q2HR PRN Dry Lips Fentanyl Citrate 2,000 mcg in 100 mls @ 6.01 mls/hr 12/20/20 22:00 12/28/20 08:43 Fentanyl Drip Premix IV 3 mcg/kg/hr TITR ASCENCION 18.03 mls/hr Administration Protocol 1 MCG/KG/HR Propofol 1,000 mg in 100 mls @ 3.606 mls/hr 12/20/20 22:00 12/28/20 08:43 Diprivan 10 Mg/Ml IV 35 mcg/kg/min TITR ASCENCION 25.242 mls/hr Administration Protocol 5 MCG/KG/MIN NORepinephrine/NS 8 MG-250 ML 8 mg in 250 mls @ 3.75 mls/hr 12/21/20 09:00 12/28/20 07:00 Norepinephrine/Ns 8 Mg-250 Ml (Double Conc) IV 4 mcg/min TITRATE ASCENCION 7.5 mls/hr Titration Protocol 2 MCG/MIN Vasopressin 20 unit/ Sodium 101 mls @ 9.09 mls/hr 12/24/20 09:00 12/27/20 22:49 Chloride IV 0.03 units/min TITR ASCENCION 9.09 mls/hr Administration Protocol 0.03 UNITS/MIN Piperacillin Sod/Tazobactam Sod 4.5 gm in 100 mls @ 200 mls/hr 12/26/20 18:00 12/28/20 06:10 Zosyn/Ns 4.5gm/100ml IV 200 mls/hr Q12H ASCENCION Administration Protocol Fluconazole 200 mg in 100 mls @ 100 mls/hr 12/26/20 10:00 12/27/20 09:07 Diflucan IV 100 mls/hr Q24H ASCENCION Administration Protocol Amino Acids/Electrolytes/Dextrose 2,400 mls @ 100 mls/hr 12/27/20 20:00 12/27/20 20:32 Tpn Adult IV 12/28/20 19:59 100 mls/hr DAILY@1999 [facility] Administration Protocol Sodium Bicarbonate 150 meq/ 1,150 mls @ 125 mls/hr 12/28/20 11:00 Dextrose IV DIRECT [facility] Insulin Human Regular 0 units 12/28/20 00:00 12/28/20 06:15 Insulin Regular, Human 100 Units/1 Ml SUB-Q Not Given Q6H [facility] Protocol Multi-Ingred Cream/Lotion/Oil/Oint 1 applic 12/20/20 21:58 Mineral Oil/Petrolatum, White Ophth Oint 3.5 Gm OU Q4HR PRN Dry Eye(s) Sodium Chloride 10 ml 12/20/20 22:00 12/28/20 10:10 Sodium Chloride 0.9% 10 Ml Flush Syringe IV 10 ml BID ASCENCION Administration Sodium Chloride 10 ml 12/20/20 16:42 Sodium Chloride 0.9% 10 Ml Flush Syringe IV PRN PRN LINE FLUSH
[2020-12-28] MEDS: VASOPRESSIN 20 UNIT in SODIUM CHLORIDE 0.9% 100 ML IV SCH ×2 (11:25→22:10)
[2020-12-28] MEDS: SODIUM BICARBONATE 150 MEQ in DEXTROSE 5% IN WATER 1,000 ML IV SCH ×2 (11:27→20:29)
[2020-12-28] MEDS: FLUCONAZOLE 200 MG 200 MG/100 ML BAG IV SCH (11:36)
--- NOTE | 2020-12-28 13:10 | Progress Note ---
Assessment and Plan 60 y/o male with abdominal catastrophe, s/p ex-lap with open abdomen, ventilated for pain control and support. 12/27/20: Agree with bicarb drip. Will go ahead and place vascath today. Will obtain consent and place, likely in groin. Back on pressors unfortunately but much lower doses. Got 3 doses of steroids on yesterday. May have helped. Will discuss with pharmacy and determine the risk benefit ration of continuing. Continue abx therapy as per ID. overall prognosis is very very guarded to poor. 12/26/20: Needs more hydration. Appreciate renal help but will bolus several liters today as I feel the patient is very volume deplete and with persistent fever we have insensible losses as well. Continue TPN. OR today. Wean pr essors for MAPs greater than 65. Follow up triglyceride level. Some hypotension is likely related to amount of sedation required to maintain rass of -4. If third agent is needed, could use precedex, ativan etc..Guarded prognosis. 12/25/20: Down to 14 on Levo now. Fluid appears to have helped. Renal following so will defer further bolus types to them but would recommend more fluid. Continue sedation at current level. TPN for nutrition. Plans for return to OR on Saturday. Continue all supportive measures. 12/24/20: Adequate sedation to maintain RASS of -4. BP support as needed with pressors. Will give more fluid today. Renal function improving. Agree with D5W but Na will be corrected in TPN as well. TPN per nutrition. Supportive care. 1. Adequate sedation to RASS of -4 2 Support BP with meds as needed 3. Aggressive hydration 4. Follow up surgery recs. cct 31 minutes. Subjective Date of service: 12/28/20 Principal diagnosis: SBO and necrosis of large part of small intestine Interval history: Worsening metabolic acidosis and now renal function is trending back up. Reviewed Renal Note. Most likely will do HD tomorrow. Will place vascath today. Objective Vital Signs - 12hr 12/28/20 12/28/20 12/28/20 01:15 01:30 01:45 Temperature Pulse Rate 73 73 74 Respiratory 24 24 24 Rate Blood Pressure 104/55 105/54 109/54 O2 Sat by Pulse 96 95 97 Oximetry 12/28/20 12/28/20 12/28/20 02:00 02:16 02:30 Temperature Pulse Rate 73 74 73 Respiratory 24 24 24 Rate Blood Pressure 106/55 103/53 101/53 O2 Sat by Pulse 97 98 96 Oximetry 12/28/20 12/28/20 12/28/20 02:45 03:00 03:15 Temperature Pulse Rate 72 73 74 Respiratory 24 24 24 Rate Blood Pressure 106/53 108/55 106/55 O2 Sat by Pulse 98 95 95 Oximetry 12/28/20 12/28/20 12/28/20 03:30 03:45 03:56 Temperature 97.2 F L Pulse Rate 76 73 Respiratory 24 21 Rate Blood Pressure 106/56 101/59 O2 Sat by Pulse 96 97 Oximetry 12/28/20 12/28/20 12/28/20 04:00 04:15 04:19 Temperature Pulse Rate 73 73 73 Respiratory 24 24 Rate Blood Pressure 112/59 110/58 110/58 O2 Sat by Pulse 96 94 97 Oximetry 12/28/20 12/28/20 12/28/20 04:30 04:45 05:00 Temperature Pulse Rate 73 74 73 Respiratory 24 23 21 Rate Blood Pressure 111/62 101/51 110/57 O2 Sat by Pulse 95 95 97 Oximetry 12/28/20 12/28/20 12/28/20 05:15 05:30 05:45 Temperature Pulse Rate 73 74 73 Respiratory 5 L 13 18 Rate Blood Pressure 112/58 112/59 114/61 O2 Sat by Pulse 94 96 93 Oximetry 12/28/20 12/28/20 12/28/20 06:00 06:15 06:30 Temperature Pulse Rate 74 71 73 Respiratory 13 24 24 Rate Blood Pressure 112/60 114/57 107/54 O2 Sat by Pulse 93 96 92 Oximetry 12/28/20 12/28/20 12/28/20 06:45 07:00 07:15 Temperature 97.8 F Pulse Rate 76 74 75 Respiratory 25 H 19 18 Rate Blood Pressure 99/48 114/59 109/58 O2 Sat by Pulse 93 96 95 Oximetry 12/28/20 12/28/20 12/28/20 07:30 07:45 08:00 Temperature 97.9 F Pulse Rate 75 75 75 Respiratory 24 15 24 Rate Blood Pressure 104/54 101/52 104/55 O2 Sat by Pulse 92 96 98 Oximetry 12/28/20 12/28/20 12/28/20 08:15 08:30 08:45 Temperature Pulse Rate 74 74 73 Respiratory 24 24 24 Rate Blood Pressure 109/55 107/53 117/56 O2 Sat by Pulse 92 89 90 Oximetry 12/28/20 12/28/20 12/28/20 09:00 09:15 09:30 Temperature Pulse Rate 74 77 76 Respiratory 24 14 24 Rate Blood Pressure 105/47 96/52 99/50 O2 Sat by Pulse 91 99 Oximetry 12/28/20 12/28/20 12/28/20 09:45 10:00 10:15 Temperature Pulse Rate 76 76 76 Respiratory 24 24 24 Rate Blood Pressure 101/47 100/50 101/46 O2 Sat by Pulse 96 95 93 Oximetry 12/28/20 12/28/20 12/28/20 10:30 10:45 12:06 Temperature Pulse Rate 78 79 72 Respiratory 24 21 Rate Blood Pressure 100/47 100/47 115/65 O2 Sat by Pulse 95 98 98 Oximetry CBC and BMP: 12/28/20 07:28 12/28/20 07:28 ABG, PT/INR, D-dimer: ABG ABG pH 7.200 (7.320-7.450) L 12/28/20 07:08 POC ABG pCO2 45.2 mmHg (32.0-48.0) 12/28/20 07:08 ABG pCO2 51.0 mm Hg 12/20/20 21:30 POC ABG pO2 67.2 mmHg (83-108) L 12/28/20 07:08 ABG pO2 104.4 mm Hg (80.0-90.0) H 12/20/20 21:30 POC ABG HCO3 17.3 12/28/20 07:08 ABG O2 Saturation 90.2 (0-100) 12/28/20 07:08 Abnormal lab findings: Abnormal Labs 12/20/20 12/20/20 12/20/20 13:58 13:58 13:58 WBC 41.1 H* RBC 5.59 H Hgb 16.2 H Hct 47.7 H MCHC RDW 15.5 H Plt Count 486 H Seg Neuts % (Manual) Lymphocytes % (Manual) Seg Neutrophils # Man Lymphocytes # (Manual) Monocytes # (Manual) APTT ABG pH POC ABG pO2 ABG pO2 ABG Hemoglobin ABG Oxyhemoglobin ABG Sodium ABG Potassium ABG Chloride ABG Glucose Carboxyhemoglobin Sodium 130 L Potassium Chloride 80.7 L Carbon Dioxide BUN 37 H Creatinine Glucose 101 H POC Glucose Lactic Acid 3.20 H* Calcium Ionized Calcium Phosphorus Magnesium AST Alkaline Phosphatase 142 H Total Protein 6.2 L Albumin 2.2 L Triglycerides Arterial Blood Glucose Arterial Blood Ionized Calcium Urine Creatinine 12/20/20 12/20/20 12/20/20 13:58 20:35 21:30 WBC RBC Hgb Hct MCHC RDW Plt Count Seg Neuts % (Manual) Lymphocytes % (Manual) Seg Neutrophils # Man Lymphocytes # (Manual) Monocytes # (Manual) APTT 49.4 H ABG pH 7.313 L POC ABG pO2 ABG pO2 104.4 H ABG Hemoglobin ABG Oxyhemoglobin ABG Sodium ABG Potassium ABG Chloride ABG Glucose Carboxyhemoglobin Sodium Potassium Chloride Carbon Dioxide BUN Creatinine Glucose POC Glucose 122 H Lactic Acid Calcium Ionized Calcium Phosphorus Magnesium AST Alkaline Phosphatase Total Protein Albumin Triglycerides Arterial Blood Glucose Arterial Blood Ionized Calcium Urine Creatinine 12/21/20 12/21/20 12/21/20 03:06 08:14 08:14 WBC 23.9 H RBC Hgb Hct MCHC RDW 15.7 H Plt Count Seg Neuts % (Manual) 91.0 H Lymphocytes % (Manual) 3.0 L Seg Neutrophils # Man 21.7 H Lymphocytes # (Manual) 0.7 L Monocytes # (Manual) 1.4 H APTT ABG pH 7.464 H POC ABG pO2 202.9 H ABG pO2 ABG Hemoglobin ABG Oxyhemoglobin ABG Sodium 133.7 L ABG Potassium ABG Chloride ABG Glucose 122 H Carboxyhemoglobin Sodium Potassium Chloride Carbon Dioxide BUN 46 H Creatinine Glucose 103 H POC Glucose Lactic Acid Calcium 6.6 L D Ionized Calcium Phosphorus Magnesium AST Alkaline Phosphatase Total Protein 5.4 L Albumin 2.3 L Triglycerides Arterial Blood Glucose 122 H Arterial Blood Ionized Calcium 3.5 L Urine Creatinine 12/21/20 12/21/20 12/22/20 17:18 21:28 04:45 WBC 22.9 H RBC Hgb Hct MCHC RDW 15.7 H Plt Count Seg Neuts % (Manual) Lymphocytes % (Manual) Seg Neutrophils # Man Lymphocytes # (Manual) Monocytes # (Manual) APTT ABG pH POC ABG pO2 ABG pO2 ABG Hemoglobin ABG Oxyhemoglobin ABG Sodium ABG Potassium ABG Chloride ABG Glucose Carboxyhemoglobin Sodium Potassium Chloride Carbon Dioxide BUN Creatinine Glucose POC Glucose 108 H Lactic Acid Calcium Ionized Calcium 4.1 L Phosphorus Magnesium AST Alkaline Phosphatase Total Protein Albumin Triglycerides Arterial Blood Glucose Arterial Blood Ionized Calcium Urine Creatinine 12/22/20 12/22/20 12/22/20 04:45 05:00 11:38 WBC RBC Hgb Hct MCHC RDW Plt Count Seg Neuts % (Manual) Lymphocytes % (Manual) Seg Neutrophils # Man Lymphocytes # (Manual) Monocytes # (Manual) APTT ABG pH 7.462 H POC ABG pO2 ABG pO2 ABG Hemoglobin ABG Oxyhemoglobin ABG Sodium ABG Potassium ABG Chloride ABG Glucose 118 H Carboxyhemoglobin Sodium 146 H Potassium Chloride Carbon Dioxide BUN 45 H Creatinine Glucose 116 H POC Glucose 115 H Lactic Acid Calcium 6.9 L Ionized Calcium Phosphorus Magnesium AST Alkaline Phosphatase Total Protein Albumin Triglycerides Arterial Blood Glucose 118 H Arterial Blood Ionized Calcium 3.8 L Urine Creatinine 12/22/20 12/23/20 12/23/20 23:26 04:43 04:45 WBC 22.2 H RBC Hgb Hct MCHC RDW 16.1 H Plt Count Seg Neuts % (Manual) Lymphocytes % (Manual) Seg Neutrophils # Man Lymphocytes # (Manual) Monocytes # (Manual) APTT ABG pH POC ABG pO2 ABG pO2 ABG Hemoglobin ABG Oxyhemoglobin ABG Sodium 147.4 H ABG Potassium ABG Chloride 112.0 H ABG Glucose 130 H Carboxyhemoglobin 0.4 L Sodium Potassium Chloride Carbon Dioxide BUN Creatinine Glucose POC Glucose 110 H Lactic Acid Calcium Ionized Calcium Phosphorus Magnesium AST Alkaline Phosphatase Total Protein Albumin Triglycerides Arterial Blood Glucose 130 H Arterial Blood Ionized Calcium 3.8 L Urine Creatinine 12/23/20 12/23/20 12/23/20 04:45 05:17 11:22 WBC RBC Hgb Hct MCHC RDW Plt Count Seg Neuts % (Manual) Lymphocytes % (Manual) Seg Neutrophils # Man Lymphocytes # (Manual) Monocytes # (Manual) APTT ABG pH POC ABG pO2 ABG pO2 ABG Hemoglobin ABG Oxyhemoglobin ABG Sodium ABG Potassium ABG Chloride ABG Glucose Carboxyhemoglobin Sodium 154 H D Potassium Chloride 110.9 H Carbon Dioxide BUN 54 H Creatinine 1.8 H Glucose 115 H POC Glucose 116 H 130 H Lactic Acid Calcium 7.0 L Ionized Calcium Phosphorus Magnesium AST Alkaline Phosphatase Total Protein Albumin Triglycerides Arterial Blood Glucose Arterial Blood Ionized Calcium Urine Creatinine 12/23/20 12/23/20 12/23/20 12:15 12:15 23:15 WBC RBC Hgb Hct MCHC RDW Plt Count Seg Neuts % (Manual) Lymphocytes % (Manual) Seg Neutrophils # Man Lymphocytes # (Manual) Monocytes # (Manual) APTT ABG pH POC ABG pO2 ABG pO2 ABG Hemoglobin ABG Oxyhemoglobin ABG Sodium ABG Potassium ABG Chloride ABG Glucose Carboxyhemoglobin Sodium 154 H Potassium Chloride Carbon Dioxide BUN Creatinine 1.5 H Glucose POC Glucose 132 H Lactic Acid Calcium Ionized Calcium Phosphorus Magnesium AST Alkaline Phosphatase Total Protein Albumin Triglycerides Arterial Blood Glucose Arterial Blood Ionized Calcium Urine Creatinine 78.1 H 12/24/20 12/24/20 12/24/20 04:19 04:30 04:30 WBC 18.3 H RBC Hgb Hct MCHC RDW 16.5 H Plt Count Seg Neuts % (Manual) Lymphocytes % (Manual) Seg Neutrophils # Man Lymphocytes # (Manual) Monocytes # (Manual) APTT ABG pH POC ABG pO2 ABG pO2 ABG Hemoglobin ABG Oxyhemoglobin ABG Sodium 149.7 H ABG Potassium ABG Chloride 116.0 H ABG Glucose 180 H Carboxyhemoglobin Sodium 155 H Potassium Chloride 116.1 H Carbon Dioxide BUN 52 H Creatinine 1.5 H Glucose 175 H POC Glucose Lactic Acid Calcium 6.8 L Ionized Calcium Phosphorus Magnesium 3.00 H AST Alkaline Phosphatase Total Protein 5.7 L Albumin 1.8 L Triglycerides Arterial Blood Glucose 180 H Arterial Blood Ionized Calcium 3.7 L Urine Creatinine 12/24/20 12/24/20 12/24/20 05:24 11:21 18:05 WBC RBC Hgb Hct MCHC RDW Plt Count Seg Neuts % (Manual) Lymphocytes % (Manual) Seg Neutrophils # Man Lymphocytes # (Manual) Monocytes # (Manual) APTT ABG pH POC ABG pO2 ABG pO2 ABG Hemoglobin ABG Oxyhemoglobin ABG Sodium ABG Potassium ABG Chloride ABG Glucose Carboxyhemoglobin Sodium Potassium Chloride Carbon Dioxide BUN Creatinine Glucose POC Glucose 153 H 154 H 133 H Lactic Acid Calcium Ionized Calcium Phosphorus Magnesium AST Alkaline Phosphatase Total Protein Albumin Triglycerides Arterial Blood Glucose Arterial Blood Ionized Calcium Urine Creatinine 12/25/20 12/25/20 12/25/20 04:00 07:00 07:00 WBC 17.6 H RBC Hgb Hct MCHC 31 L RDW 16.0 H Plt Count Seg Neuts % (Manual) Lymphocytes % (Manual) Seg Neutrophils # Man Lymphocytes # (Manual) Monocytes # (Manual) APTT ABG pH POC ABG pO2 ABG pO2 ABG Hemoglobin ABG Oxyhemoglobin ABG Sodium 152.5 H ABG Potassium ABG Chloride 119.0 H ABG Glucose 136 H Carboxyhemoglobin Sodium Potassium Chloride Carbon Dioxide BUN Creatinine Glucose POC Glucose Lactic Acid Calcium Ionized Calcium Phosphorus Magnesium 2.70 H AST Alkaline Phosphatase Total Protein Albumin Triglycerides Arterial Blood Glucose 136 H Arterial Blood Ionized Calcium 3.7 L Urine Creatinine 12/25/20 12/25/20 12/25/20 07:00 11:24 16:32 WBC RBC Hgb Hct MCHC RDW Plt Count Seg Neuts % (Manual) Lymphocytes % (Manual) Seg Neutrophils # Man Lymphocytes # (Manual) Monocytes # (Manual) APTT ABG pH POC ABG pO2 ABG pO2 ABG Hemoglobin ABG Oxyhemoglobin ABG Sodium ABG Potassium ABG Chloride ABG Glucose Carboxyhemoglobin Sodium 156 H Potassium Chloride 118.0 H Carbon Dioxide BUN 44 H Creatinine 1.7 H Glucose 126 H POC Glucose 110 H 126 H Lactic Acid Calcium 6.9 L Ionized Calcium Phosphorus Magnesium AST Alkaline Phosphatase Total Protein Albumin Triglycerides Arterial Blood Glucose Arterial Blood Ionized Calcium Urine Creatinine 12/25/20 12/25/20 12/26/20 18:18 23:23 03:30 WBC RBC Hgb Hct MCHC RDW Plt Count Seg Neuts % (Manual) Lymphocytes % (Manual) Seg Neutrophils # Man Lymphocytes # (Manual) Monocytes # (Manual) APTT ABG pH POC ABG pO2 ABG pO2 ABG Hemoglobin 11.8 L ABG Oxyhemoglobin ABG Sodium ABG Potassium 4.7 H ABG Chloride 114.0 H ABG Glucose 132 H Carboxyhemoglobin Sodium 151 H Potassium Chloride 114.3 H Carbon Dioxide BUN 51 H Creatinine 2.6 H D Glucose 122 H POC Glucose 115 H Lactic Acid Calcium 6.4 L Ionized Calcium Phosphorus Magnesium AST Alkaline Phosphatase Total Protein Albumin Triglycerides Arterial Blood Glucose 132 H Arterial Blood Ionized Calcium 3.6 L Urine Creatinine 12/26/20 12/26/20 12/26/20 04:55 06:01 06:01 WBC 21.6 H RBC Hgb Hct MCHC 31 L RDW 16.5 H Plt Count 136 L Seg Neuts % (Manual) Lymphocytes % (Manual) Seg Neutrophils # Man Lymphocytes # (Manual) Monocytes # (Manual) APTT ABG pH POC ABG pO2 ABG pO2 ABG Hemoglobin ABG Oxyhemoglobin ABG Sodium ABG Potassium ABG Chloride ABG Glucose Carboxyhemoglobin Sodium 173 H* D Potassium 6.1 H* D Chloride 137.0 H Carbon Dioxide BUN 73 H Creatinine 3.8 H Glucose 125 H POC Glucose 112 H Lactic Acid Calcium 6.2 L Ionized Calcium Phosphorus 5.70 H D Magnesium 2.90 H AST Alkaline Phosphatase Total Protein Albumin Triglycerides Arterial Blood Glucose Arterial Blood Ionized Calcium Urine Creatinine 12/26/20 12/26/20 12/26/20 08:33 11:19 22:00 WBC RBC Hgb Hct MCHC RDW Plt Count Seg Neuts % (Manual) Lymphocytes % (Manual) Seg Neutrophils # Man Lymphocytes # (Manual) Monocytes # (Manual) APTT ABG pH POC ABG pO2 ABG pO2 ABG Hemoglobin ABG Oxyhemoglobin ABG Sodium ABG Potassium ABG Chloride ABG Glucose Carboxyhemoglobin Sodium 147 H D Potassium 5.8 H D Chloride 108.8 H Carbon Dioxide 21 L BUN 68 H 68 H Creatinine 3.8 H 4.1 H Glucose 144 H 154 H POC Glucose 144 H Lactic Acid Calcium 6.5 L 5.8 L* Ionized Calcium Phosphorus Magnesium AST 215 H Alkaline Phosphatase Total Protein 4.7 L Albumin 1.5 L Triglycerides Arterial Blood Glucose Arterial Blood Ionized Calcium Urine Creatinine 12/26/20 12/26/20 12/27/20 23:13 Unknown 00:25 WBC RBC Hgb 11.1 L Hct MCHC RDW Plt Count Seg Neuts % (Manual) Lymphocytes % (Manual) Seg Neutrophils # Man Lymphocytes # (Manual) Monocytes # (Manual) APTT ABG pH POC ABG pO2 ABG pO2 ABG Hemoglobin ABG Oxyhemoglobin ABG Sodium ABG Potassium ABG Chloride ABG Glucose Carboxyhemoglobin Sodium Potassium Chloride Carbon Dioxide BUN Creatinine Glucose POC Glucose 163 H Lactic Acid Calcium Ionized Calcium Phosphorus 5.60 H Magnesium AST Alkaline Phosphatase Total Protein Albumin Triglycerides Arterial Blood Glucose Arterial Blood Ionized Calcium Urine Creatinine 12/27/20 12/27/20 12/27/20 02:57 04:15 04:15 WBC 28.5 H RBC Hgb 11.2 L Hct MCHC 31 L RDW 16.5 H Plt Count 130 L Seg Neuts % (Manual) Lymphocytes % (Manual) Seg Neutrophils # Man Lymphocytes # (Manual) Monocytes # (Manual) APTT ABG pH 7.238 L POC ABG pO2 139.1 H ABG pO2 ABG Hemoglobin 11.2 L ABG Oxyhemoglobin ABG Sodium 133.8 L ABG Potassium 5.2 H ABG Chloride ABG Glucose 182 H Carboxyhemoglobin Sodium 136 L Potassium 6.0 H Chloride Carbon Dioxide 18 L BUN 68 H Creatinine 4.1 H Glucose 166 H POC Glucose Lactic Acid Calcium 6.2 L Ionized Calcium Phosphorus 7.30 H D Magnesium AST Alkaline Phosphatase Total Protein Albumin Triglycerides 164 H Arterial Blood Glucose 182 H Arterial Blood Ionized Calcium 3.4 L Urine Creatinine 12/27/20 12/27/20 12/27/20 04:50 10:51 11:17 WBC RBC Hgb Hct MCHC RDW Plt Count Seg Neuts % (Manual) Lymphocytes % (Manual) Seg Neutrophils # Man Lymphocytes # (Manual) Monocytes # (Manual) APTT ABG pH POC ABG pO2 ABG pO2 ABG Hemoglobin ABG Oxyhemoglobin ABG Sodium ABG Potassium ABG Chloride ABG Glucose Carboxyhemoglobin Sodium Potassium Chloride Carbon Dioxide BUN Creatinine Glucose POC Glucose 140 H 113 H 154 H Lactic Acid Calcium Ionized Calcium Phosphorus Magnesium AST Alkaline Phosphatase Total Protein Albumin Triglycerides Arterial Blood Glucose Arterial Blood Ionized Calcium Urine Creatinine 12/27/20 12/27/20 12/28/20 12:40 23:17 05:36 WBC RBC Hgb Hct MCHC RDW Plt Count Seg Neuts % (Manual) Lymphocytes % (Manual) Seg Neutrophils # Man Lymphocytes # (Manual) Monocytes # (Manual) APTT ABG pH POC ABG pO2 ABG pO2 ABG Hemoglobin ABG Oxyhemoglobin ABG Sodium ABG Potassium ABG Chloride ABG Glucose Carboxyhemoglobin Sodium 135 L Potassium Chloride Carbon Dioxide 21 L BUN 62 H Creatinine 3.8 H Glucose 132 H POC Glucose 130 H 128 H Lactic Acid Calcium 5.6 L* Ionized Calcium Phosphorus Magnesium AST Alkaline Phosphatase Total Protein Albumin Triglycerides Arterial Blood Glucose Arterial Blood Ionized Calcium Urine Creatinine 12/28/20 12/28/20 12/28/20 07:08 07:28 07:28 WBC 27.2 H RBC 3.50 L Hgb 9.6 L Hct 30.8 L MCHC 31 L RDW 16.1 H Plt Count 111 L Seg Neuts % (Manual) Lymphocytes % (Manual) Seg Neutrophils # Man Lymphocytes # (Manual) Monocytes # (Manual) APTT ABG pH 7.200 L POC ABG pO2 67.2 L ABG pO2 ABG Hemoglobin 10.3 L ABG Oxyhemoglobin 89.6 L ABG Sodium 127.8 L ABG Potassium 5.1 H ABG Chloride ABG Glucose 132 H Carboxyhemoglobin 0.4 L Sodium 131 L Potassium 5.9 H Chloride Carbon Dioxide 15 L BUN 70 H Creatinine 4.0 H Glucose 118 H POC Glucose Lactic Acid Calcium 6.3 L Ionized Calcium Phosphorus 7.10 H Magnesium AST 144 H Alkaline Phosphatase Total Protein 4.8 L Albumin 1.3 L Triglycerides Arterial Blood Glucose 132 H Arterial Blood Ionized Calcium 3.5 L Urine Creatinine 12/28/20 11:37 WBC RBC Hgb Hct MCHC RDW Plt Count Seg Neuts % (Manual) Lymphocytes % (Manual) Seg Neutrophils # Man Lymphocytes # (Manual) Monocytes # (Manual) APTT ABG pH POC ABG pO2 ABG pO2 ABG Hemoglobin ABG Oxyhemoglobin ABG Sodium ABG Potassium ABG Chloride ABG Glucose Carboxyhemoglobin Sodium Potassium Chloride Carbon Dioxide BUN Creatinine Glucose POC Glucose 135 H Lactic Acid Calcium Ionized Calcium Phosphorus Magnesium AST Alkaline Phosphatase Total Protein Albumin Triglycerides Arterial Blood Glucose Arterial Blood Ionized Calcium Urine Creatinine
--- NOTE | 2020-12-28 14:15 | Anesthesia Consultation ---
<VARUN THACKER - Last Filed: 12/28/20 14:10> Anesthesia Consult and Med Hx Date of service: 12/29/20 - Airway Anesthetic Teeth Evaluation: Poor - Pre-Operative Health Status ASA Pre-Surgery Classification: ASA3 Proposed Anesthetic Plan: General - Pulmonary Hx Smoking: Yes Hx Asthma: No Hx Respiratory Symptoms: Yes (patient is on ventilator with propofol and fentanyl sedation) COPD: Yes Hx Pneumonia: No Hx Sleep Apnea: Yes - Cardiovascular System Hx Hypertension: Yes Hx Coronary Artery Disease: Yes Hx Heart Attack/AMI: No Hx Pacemaker: No Hx Internal Defibrillator: No Hx Peripheral Vascular Disease: Yes (WITH STENT) - Central Nervous System Hx Neuromuscular Disorder: No Hx Seizures: No CVA: No Hx Back Pain: Yes (on chronic pain meds) Hx Psychiatric Problems: No - Gastrointestinal Hx Ulcer: No Hx Gastroesophageal Reflux Disease: No - Endocrine Hx Renal Disease: No Hx End Stage Renal Disease: No Hx Liver Disease: No Hx Insulin Dependent Diabetes: No - Hematic Hx Anemia: No Hx Sickle Cell Disease: No - Other Systems Hx Alcohol Use: No Hx Substance Use: Yes (percocet, demerol at home) Hx Cancer: No Hx Obesity: Yes - Additional Comments Anesthesia Medical History Comments: No GAC, no FHAC <YONATAN GEORGE - Last Filed: 12/29/20 10:58> Anesthesia Consult and Med Hx - Pre-Operative Health Status ASA Pre-Surgery Classification: ASA4 - Additional Comments Anesthesia Medical History Comments: Increased pressor and O2 requires compared to previous surgery.
[2020-12-28 14:21] LABS: Anisocytosis Few; Band Neutrophils # (Manual) 0.3 K/mm3; Hypochromasia Few; Platelet Estimate Consistent w Auto; Total Cells Counted 100
--- NOTE | 2020-12-28 14:27 | Procedure Note ---
Date of procedure: 12/28/20 Pre-op diagnosis: Renal Disease Post-op diagnosis: same Procedure: left femoral vascath placement After obtaining informed consent from patients mother, patient positioned so that wound vac is not contaminated. Given cut and position bed, best access was on the left. Using ultrasound guidance and seldinger technique left femoral vascath was placed with no immediate complications. Anesthesia: local Surgeon: EVELYN GARCIA Estimated blood loss: minimal Pathology: none Condition: critical Disposition: ICU
--- NOTE | 2020-12-28 15:22 | Progress Note ---
Assessment and Plan Cultures: 12/20/2020 sputum culture: In process 12/20/2020 blood culture: No growth 12/20/2020 urine culture: Usual skin giorgio A/P: 60-year-old male with obesity, hypertension, tobacco abuse, coronary artery disease, admitted to the hospital on 12/20/2020 with: #Septic shock: Secondary to intra-abdominal source, peritonitis. Patient with necrotic bowel secondary to incarcerated ventral hernia. Status post exploratory laparotomy, extensive adhesiolysis, small bowel resection and peritoneal lavage along with ABThera VAC placement on 12/20/2020. #JONI: Renally dose antibiotics. #Morbid obesity Recs: -continue renally dosed Zosyn. -continue Fluconazole 200 mg daily -increase in leukocytosis likely reactive to surgery. Continue to follow. Priscilla Marie MD [facility] ([facility] O: [phone] F: [phone] Subjective Date of service: 12/28/20 Principal diagnosis: SBO and necrosis of large part of small intestine Interval history: Afebrile with low temperatures, white count 27.2. Vas-Cath was placed today in the left femoral vein. Objective - Exam Narrative Exam: Physical Exam: Constitutional: sedated, intubated, on the vent Head, Ears, Nose: Normocephalic, atraumatic. External ears, nose normal Eyes: Conjunctivae/corneas clear. No icterus. No ptosis. Neck: intubated Oral: intubated Cardiovascular: S1, S2 + Respiratory: AE fair bilaterally and equal GI: Abdomen dressed Musculoskeletal: No pedal edema, no cyanosis. Skin: No rash or abscess Hem/Lymphatic: No palpable cervical or supraclavicular nodes. No lymphangitis Psych: no agitation Neurological: sedated, intubated, on the vent, exam limited - Constitutional Vitals: Vital Signs Temp Pulse Resp BP Pulse Ox 97.6 F 72 21 115/65 98 12/28/20 12:00 12/28/20 12:06 12/28/20 10:45 12/28/20 12:06 12/28/20 12:06 Temperature -Last 24 Hours Temperature 97.6 F Temperature 97.9 F Temperature 97.8 F Temperature 97.2 F Temperature 96.9 F Temperature 97.1 F Temperature 97.5 F - Labs CBC & Chem 7: 12/28/20 07:28 12/28/20 07:28 Labs: Abnormal lab results 12/27/20 12/28/20 12/28/20 Range/Units 23:17 05:36 07:08 WBC (4.5-11.0) K/mm3 RBC (3.65-5.03) M/mm3 Hgb (11.8-15.2) gm/dl Hct (35.5-45.6) % MCHC (32-34) % RDW (13.2-15.2) % Plt Count (140-440) K/mm3 Seg Neuts % (Manual) (40.0-70.0) % Seg Neutrophils # Man (1.8-7.7) K/mm3 Lymphocytes # (Manual) (1.2-5.4) K/mm3 Monocytes # (Manual) (0.0-0.8) K/mm3 ABG pH 7.200 L (7.320-7.450) POC ABG pO2 67.2 L (83-108) mmHg ABG Hemoglobin 10.3 L (12.0-17.5) ABG Oxyhemoglobin 89.6 L (94-98) ABG Sodium 127.8 L (136.0-145.0) mmol/L ABG Potassium 5.1 H (3.40-4.50) mmol/L ABG Glucose 132 H (65-95) mg/dL Carboxyhemoglobin 0.4 L (0.5-1.5) Sodium (137-145) mmol/L Potassium (3.6-5.0) mmol/L Carbon Dioxide (22-30) mmol/L BUN (9-20) mg/dL Creatinine (0.8-1.3) mg/dL Glucose (75-100) mg/dL POC Glucose 130 H 128 H (70-105) mg/dL Calcium (8.4-10.2) mg/dL Phosphorus (2.5-4.5) mg/dL AST (5-40) units/L Total Protein (6.3-8.2) g/dL Albumin (3.9-5) g/dL Arterial Blood Glucose 132 H (65-95) mg/dL Arterial Blood Ionized Calcium 3.5 L (4.6-5.3) mg/dL 12/28/20 12/28/20 12/28/20 Range/Units 07:28 07:28 11:37 WBC 27.2 H (4.5-11.0) K/mm3 RBC 3.50 L (3.65-5.03) M/mm3 Hgb 9.6 L (11.8-15.2) gm/dl Hct 30.8 L (35.5-45.6) % MCHC 31 L (32-34) % RDW 16.1 H (13.2-15.2) % Plt Count 111 L (140-440) K/mm3 Seg Neuts % (Manual) 95.0 H (40.0-70.0) % Seg Neutrophils # Man 25.8 H (1.8-7.7) K/mm3 Lymphocytes # (Manual) 0.0 L (1.2-5.4) K/mm3 Monocytes # (Manual) 1.1 H (0.0-0.8) K/mm3 ABG pH (7.320-7.450) POC ABG pO2 (83-108) mmHg ABG Hemoglobin (12.0-17.5) ABG Oxyhemoglobin (94-98) ABG Sodium (136.0-145.0) mmol/L ABG Potassium (3.40-4.50) mmol/L ABG Glucose (65-95) mg/dL Carboxyhemoglobin (0.5-1.5) Sodium 131 L (137-145) mmol/L Potassium 5.9 H (3.6-5.0) mmol/L Carbon Dioxide 15 L (22-30) mmol/L BUN 70 H (9-20) mg/dL Creatinine 4.0 H (0.8-1.3) mg/dL Glucose 118 H (75-100) mg/dL POC Glucose 135 H (70-105) mg/dL Calcium 6.3 L (8.4-10.2) mg/dL Phosphorus 7.10 H (2.5-4.5) mg/dL AST 144 H (5-40) units/L Total Protein 4.8 L (6.3-8.2) g/dL Albumin 1.3 L (3.9-5) g/dL Arterial Blood Glucose (65-95) mg/dL Arterial Blood Ionized Calcium (4.6-5.3) mg/dL
[2020-12-28 16:02] LABS: Calcium 6.3 mg/dL (8.4-10.2)
--- NOTE | 2020-12-28 18:54 | Event Note ---
Date: 12/28/20 No acute events overnight. Per nurse and beside evaluation pt is stable with decrease in vassopressor requirement. Obtained consent from son Malvin for OR tomorrow morning. The plan is anastamosis his bowel if all looks well perfused and he remains on low vassopressor support. Not planing to close abdomen tomorrow.
[2020-12-28] MEDS ORDERED: TOTAL PARENTERAL NUTRITION 2,400 ML IV SCH (20:00)
[2020-12-29] MEDS: fentaNYL DRIP Premix 2,000 MCG/100 ML BAG IV SCH ×5 (03:42→22:01)
[2020-12-29 05:53] LABS: Hematocrit 25.5 % (35.5-45.6); Hemoglobin 8.1 gm/dl (11.8-15.2); Mean Corpuscular HGB Conc 32 % (32-34); Mean Corpuscular Volume 88 fl (84-94); Platelet Count 124 K/mm3 (140-440); Red Blood Count 2.89 M/mm3 (3.65-5.03); Red Cell Distribution Width 16.1 % (13.2-15.2)
[2020-12-29] MEDS: PIPERACIL/TAZOBACTA 4.5/NS 100 4.5 GM/100 ML VIAL IV SCH ×2 (06:05→17:05)
[2020-12-29] MEDS: SODIUM BICARBONATE 150 MEQ in DEXTROSE 5% IN WATER 1,000 ML IV SCH (06:09)
[2020-12-29 06:15] LABS: Calcium 5.5 mg/dL (8.4-10.2)
[2020-12-29] MEDS: INSULIN REGULAR, HUMAN 100 UNITS/1 ML SUB-Q SCH ×4 (06:51→17:47)
[2020-12-29] MEDS ORDERED: ROCURONIUM 50 MG/5 ML INJ IV ONE (07:04)
[2020-12-29] MEDS ORDERED: SODIUM CHLORIDE 0.9% 1000 ML 1,000 ML ONE (08:08)
[2020-12-29] MEDS ORDERED: SODIUM CHLORIDE 0.9% IRR 1,500 ML BOTTLE IR ONE ×2 (09:14)
--- NOTE | 2020-12-29 09:31 | Progress Note ---
Assessment and Plan 60 y/o male with abdominal catastrophe, s/p ex-lap with open abdomen, ventilated for pain control and support. 12/29/20: Continue all supportive measures. Maintain adequate sedation and pain control given open abdomen. HD per renal, catheter in place. Wean Pressors for MAPS >65. Prognosis still remains guarded to poor. 12/27/20: Agree with bicarb drip. Will go ahead and place vascath today. Will obtain consent and place, likely in groin. Back on pressors unfortunately but much lower doses. Got 3 doses of steroids on yesterday. May have helped. Will discuss with pharmacy and determine the risk benefit ration of continuing. Continue abx therapy as per ID. overall prognosis is very very guarded to poor. 12/26/20: Needs more hydration. Appreciate renal help but will bolus several liters today as I feel the patient is very volume deplete and with persistent fever we have insensible losses as well. Continue TPN. OR today. Wean pressors for MAPs greater than 65. Follow up triglyceride level. Some hypotension is likely related to amount of sedation required to maintain rass of -4. If third agent is needed, could use precedex, ativan etc..Guarded prognosis. 12/25/20: Down to 14 on Levo now. Fluid appears to have helped. Renal following so will defer further bolus types to them but would recommend more fluid. Continue sedation at current level. TPN for nutrition. Plans for return to OR on Saturday. Continue all supportive measures. 12/24/20: Adequate sedation to maintain RASS of -4. BP support as needed with pressors. Will give more fluid today. Renal function improving. Agree with D5W but Na will be corrected in TPN as well. TPN per nutrition. Supportive care. 1. Adequate sedation to RASS of -4 2 Support BP with meds as needed 3. Aggressive hydration 4. Follow up surgery recs. cct 31 minutes. Subjective Date of service: 12/29/20 Principal diagnosis: SBO and necrosis of large part of small intestine Interval history: patient just back from OR. Anastomosis done today but abdomen remains open. renal numbers did not improve but have not heard if HD will happen today. No fever overnight. Objective Vital Signs - 12hr 12/28/20 12/28/20 12/28/20 21:45 22:00 22:15 Temperature Pulse Rate 72 72 72 Pulse Rate [ From Monitor] Respiratory 24 24 24 Rate Blood Pressure 99/53 98/48 106/53 O2 Sat by Pulse 95 95 99 Oximetry 12/28/20 12/28/20 12/28/20 22:30 22:45 23:00 Temperature Pulse Rate 72 73 72 Pulse Rate [ From Monitor] Respiratory 24 24 24 Rate Blood Pressure 99/50 96/51 99/50 O2 Sat by Pulse 95 95 97 Oximetry 12/28/20 12/28/20 12/28/20 23:15 23:30 23:45 Temperature Pulse Rate 73 74 75 Pulse Rate [ From Monitor] Respiratory 24 24 24 Rate Blood Pressure 98/49 101/51 99/50 O2 Sat by Pulse 94 98 96 Oximetry 12/29/20 12/29/20 12/29/20 00:00 00:15 00:30 Temperature 96.8 F L Pulse Rate 75 76 76 Pulse Rate [ 75 From Monitor] Respiratory 24 21 24 Rate Blood Pressure 98/52 98/52 102/48 O2 Sat by Pulse 95 99 95 Oximetry 12/29/20 12/29/20 12/29/20 00:45 01:00 01:15 Temperature Pulse Rate 75 75 74 Pulse Rate [ From Monitor] Respiratory 24 24 24 Rate Blood Pressure 100/51 98/49 97/51 O2 Sat by Pulse 95 96 95 Oximetry 12/29/20 12/29/20 12/29/20 01:30 01:45 02:00 Temperature Pulse Rate 74 73 73 Pulse Rate [ From Monitor] Respiratory 24 24 24 Rate Blood Pressure 105/51 102/52 106/49 O2 Sat by Pulse 97 96 97 Oximetry 12/29/20 12/29/20 12/29/20 02:15 02:30 02:45 Temperature Pulse Rate 73 72 74 Pulse Rate [ From Monitor] Respiratory 24 24 24 Rate Blood Pressure 100/49 102/53 98/48 O2 Sat by Pulse 96 96 97 Oximetry 12/29/20 12/29/20 12/29/20 03:00 03:15 03:31 Temperature Pulse Rate 74 75 84 Pulse Rate [ From Monitor] Respiratory 24 24 18 Rate Blood Pressure 100/50 97/49 79/49 O2 Sat by Pulse 96 97 Oximetry 12/29/20 12/29/20 12/29/20 03:45 04:00 04:14 Temperature 97.4 F L Pulse Rate 79 79 79 Pulse Rate [ 79 From Monitor] Respiratory 22 25 H Rate Blood Pressure 97/47 93/46 92/51 O2 Sat by Pulse 98 99 98 Oximetry 12/29/20 12/29/20 12/29/20 04:15 04:30 04:45 Temperature Pulse Rate 79 79 80 Pulse Rate [ From Monitor] Respiratory 24 22 24 Rate Blood Pressure 92/51 93/48 98/46 O2 Sat by Pulse 97 98 97 Oximetry 12/29/20 12/29/20 12/29/20 05:00 05:15 05:30 Temperature Pulse Rate 79 79 79 Pulse Rate [ From Monitor] Respiratory 24 24 24 Rate Blood Pressure 92/47 93/46 93/46 O2 Sat by Pulse 96 96 97 Oximetry 12/29/20 12/29/20 12/29/20 05:45 06:01 06:15 Temperature Pulse Rate 82 82 83 Pulse Rate [ From Monitor] Respiratory 24 24 22 Rate Blood Pressure 90/47 93/44 93/44 O2 Sat by Pulse 95 99 94 Oximetry 12/29/20 12/29/20 12/29/20 06:30 06:45 07:00 Temperature 97.6 F Pulse Rate 84 85 87 Pulse Rate [ From Monitor] Respiratory 23 20 22 Rate Blood Pressure 99/48 101/45 99/54 O2 Sat by Pulse 96 96 95 Oximetry 12/29/20 08:00 Temperature Pulse Rate Pulse Rate [ 82 From Monitor] Respiratory Rate Blood Pressure O2 Sat by Pulse 99 Oximetry CBC and BMP: 12/29/20 05:20 12/29/20 05:20 ABG, PT/INR, D-dimer: ABG ABG pH 7.301 (7.320-7.450) L 12/29/20 03:08 POC ABG pCO2 41.4 mmHg (32.0-48.0) 12/29/20 03:08 ABG pCO2 51.0 mm Hg 12/20/20 21:30 POC ABG pO2 151.1 mmHg (83-108) H 12/29/20 03:08 ABG pO2 104.4 mm Hg (80.0-90.0) H 12/20/20 21:30 POC ABG HCO3 20.0 12/29/20 03:08 ABG O2 Saturation 99.1 (0-100) 12/29/20 03:08 Abnormal lab findings: Abnormal Labs 12/20/20 12/20/20 12/20/20 13:58 13:58 13:58 WBC 41.1 H* RBC 5.59 H Hgb 16.2 H Hct 47.7 H MCHC RDW 15.5 H Plt Count 486 H Seg Neuts % (Manual) Lymphocytes % (Manual) Seg Neutrophils # Man Lymphocytes # (Manual) Monocytes # (Manual) APTT ABG pH POC ABG pO2 ABG pO2 ABG Hemoglobin ABG Oxyhemoglobin ABG Sodium ABG Potassium ABG Chloride ABG Glucose Carboxyhemoglobin Sodium 130 L Potassium Chloride 80.7 L Carbon Dioxide BUN 37 H Creatinine Glucose 101 H POC Glucose Lactic Acid 3.20 H* Calcium Ionized Calcium Phosphorus Magnesium AST Alkaline Phosphatase 142 H Total Protein 6.2 L Albumin 2.2 L Triglycerides Arterial Blood Glucose Arterial Blood Ionized Calcium Urine Creatinine 12/20/20 12/20/20 12/20/20 13:58 20:35 21:30 WBC RBC Hgb Hct MCHC RDW Plt Count Seg Neuts % (Manual) Lymphocytes % (Manual) Seg Neutrophils # Man Lymphocytes # (Manual) Monocytes # (Manual) APTT 49.4 H ABG pH 7.313 L POC ABG pO2 ABG pO2 104.4 H ABG Hemoglobin ABG Oxyhemoglobin ABG Sodium ABG Potassium ABG Chloride ABG Glucose Carboxyhemoglobin Sodium Potassium Chloride Carbon Dioxide BUN Creatinine Glucose POC Glucose 122 H Lactic Acid Calcium Ionized Calcium Phosphorus Magnesium AST Alkaline Phosphatase Total Protein Albumin Triglycerides Arterial Blood Glucose Arterial Blood Ionized Calcium Urine Creatinine 12/21/20 12/21/20 12/21/20 03:06 08:14 08:14 WBC 23.9 H RBC Hgb Hct MCHC RDW 15.7 H Plt Count Seg Neuts % (Manual) 91.0 H Lymphocytes % (Manual) 3.0 L Seg Neutrophils # Man 21.7 H Lymphocytes # (Manual) 0.7 L Monocytes # (Manual) 1.4 H APTT ABG pH 7.464 H POC ABG pO2 202.9 H ABG pO2 ABG Hemoglobin ABG Oxyhemoglobin ABG Sodium 133.7 L ABG Potassium ABG Chloride ABG Glucose 122 H Carboxyhemoglobin Sodium Potassium Chloride Carbon Dioxide BUN 46 H Creatinine Glucose 103 H POC Glucose Lactic Acid Calcium 6.6 L D Ionized Calcium Phosphorus Magnesium AST Alkaline Phosphatase Total Protein 5.4 L Albumin 2.3 L Triglycerides Arterial Blood Glucose 122 H Arterial Blood Ionized Calcium 3.5 L Urine Creatinine 12/21/20 12/21/20 12/22/20 17:18 21:28 04:45 WBC 22.9 H RBC Hgb Hct MCHC RDW 15.7 H Plt Count Seg Neuts % (Manual) Lymphocytes % (Manual) Seg Neutrophils # Man Lymphocytes # (Manual) Monocytes # (Manual) APTT ABG pH POC ABG pO2 ABG pO2 ABG Hemoglobin ABG Oxyhemoglobin ABG Sodium ABG Potassium ABG Chloride ABG Glucose Carboxyhemoglobin Sodium Potassium Chloride Carbon Dioxide BUN Creatinine Glucose POC Glucose 108 H Lactic Acid Calcium Ionized Calcium 4.1 L Phosphorus Magnesium AST Alkaline Phosphatase Total Protein Albumin Triglycerides Arterial Blood Glucose Arterial Blood Ionized Calcium Urine Creatinine 12/22/20 12/22/20 12/22/20 04:45 05:00 11:38 WBC RBC Hgb Hct MCHC RDW Plt Count Seg Neuts % (Manual) Lymphocytes % (Manual) Seg Neutrophils # Man Lymphocytes # (Manual) Monocytes # (Manual) APTT ABG pH 7.462 H POC ABG pO2 ABG pO2 ABG Hemoglobin ABG Oxyhemoglobin ABG Sodium ABG Potassium ABG Chloride ABG Glucose 118 H Carboxyhemoglobin Sodium 146 H Potassium Chloride Carbon Dioxide BUN 45 H Creatinine Glucose 116 H POC Glucose 115 H Lactic Acid Calcium 6.9 L Ionized Calcium Phosphorus Magnesium AST Alkaline Phosphatase Total Protein Albumin Triglycerides Arterial Blood Glucose 118 H Arterial Blood Ionized Calcium 3.8 L Urine Creatinine 12/22/20 12/23/20 12/23/20 23:26 04:43 04:45 WBC 22.2 H RBC Hgb Hct MCHC RDW 16.1 H Plt Count Seg Neuts % (Manual) Lymphocytes % (Manual) Seg Neutrophils # Man Lymphocytes # (Manual) Monocytes # (Manual) APTT ABG pH POC ABG pO2 ABG pO2 ABG Hemoglobin ABG Oxyhemoglobin ABG Sodium 147.4 H ABG Potassium ABG Chloride 112.0 H ABG Glucose 130 H Carboxyhemoglobin 0.4 L Sodium Potassium Chloride Carbon Dioxide BUN Creatinine Glucose POC Glucose 110 H Lactic Acid Calcium Ionized Calcium Phosphorus Magnesium AST Alkaline Phosphatase Total Protein Albumin Triglycerides Arterial Blood Glucose 130 H Arterial Blood Ionized Calcium 3.8 L Urine Creatinine 12/23/20 12/23/20 12/23/20 04:45 05:17 11:22 WBC RBC Hgb Hct MCHC RDW Plt Count Seg Neuts % (Manual) Lymphocytes % (Manual) Seg Neutrophils # Man Lymphocytes # (Manual) Monocytes # (Manual) APTT ABG pH POC ABG pO2 ABG pO2 ABG Hemoglobin ABG Oxyhemoglobin ABG Sodium ABG Potassium ABG Chloride ABG Glucose Carboxyhemoglobin Sodium 154 H D Potassium Chloride 110.9 H Carbon Dioxide BUN 54 H Creatinine 1.8 H Glucose 115 H POC Glucose 116 H 130 H Lactic Acid Calcium 7.0 L Ionized Calcium Phosphorus Magnesium AST Alkaline Phosphatase Total Protein Albumin Triglycerides Arterial Blood Glucose Arterial Blood Ionized Calcium Urine Creatinine 12/23/20 12/23/20 12/23/20 12:15 12:15 23:15 WBC RBC Hgb Hct MCHC RDW Plt Count Seg Neuts % (Manual) Lymphocytes % (Manual) Seg Neutrophils # Man Lymphocytes # (Manual) Monocytes # (Manual) APTT ABG pH POC ABG pO2 ABG pO2 ABG Hemoglobin ABG Oxyhemoglobin ABG Sodium ABG Potassium ABG Chloride ABG Glucose Carboxyhemoglobin Sodium 154 H Potassium Chloride Carbon Dioxide BUN Creatinine 1.5 H Glucose POC Glucose 132 H Lactic Acid Calcium Ionized Calcium Phosphorus Magnesium AST Alkaline Phosphatase Total Protein Albumin Triglycerides Arterial Blood Glucose Arterial Blood Ionized Calcium Urine Creatinine 78.1 H 12/24/20 12/24/20 12/24/20 04:19 04:30 04:30 WBC 18.3 H RBC Hgb Hct MCHC RDW 16.5 H Plt Count Seg Neuts % (Manual) Lymphocytes % (Manual) Seg Neutrophils # Man Lymphocytes # (Manual) Monocytes # (Manual) APTT ABG pH POC ABG pO2 ABG pO2 ABG Hemoglobin ABG Oxyhemoglobin ABG Sodium 149.7 H ABG Potassium ABG Chloride 116.0 H ABG Glucose 180 H Carboxyhemoglobin Sodium 155 H Potassium Chloride 116.1 H Carbon Dioxide BUN 52 H Creatinine 1.5 H Glucose 175 H POC Glucose Lactic Acid Calcium 6.8 L Ionized Calcium Phosphorus Magnesium 3.00 H AST Alkaline Phosphatase Total Protein 5.7 L Albumin 1.8 L Triglycerides Arterial Blood Glucose 180 H Arterial Blood Ionized Calcium 3.7 L Urine Creatinine 12/24/20 12/24/20 12/24/20 05:24 11:21 18:05 WBC RBC Hgb Hct MCHC RDW Plt Count Seg Neuts % (Manual) Lymphocytes % (Manual) Seg Neutrophils # Man Lymphocytes # (Manual) Monocytes # (Manual) APTT ABG pH POC ABG pO2 ABG pO2 ABG Hemoglobin ABG Oxyhemoglobin ABG Sodium ABG Potassium ABG Chloride ABG Glucose Carboxyhemoglobin Sodium Potassium Chloride Carbon Dioxide BUN Creatinine Glucose POC Glucose 153 H 154 H 133 H Lactic Acid Calcium Ionized Calcium Phosphorus Magnesium AST Alkaline Phosphatase Total Protein Albumin Triglycerides Arterial Blood Glucose Arterial Blood Ionized Calcium Urine Creatinine 12/25/20 12/25/20 12/25/20 04:00 07:00 07:00 WBC 17.6 H RBC Hgb Hct MCHC 31 L RDW 16.0 H Plt Count Seg Neuts % (Manual) Lymphocytes % (Manual) Seg Neutrophils # Man Lymphocytes # (Manual) Monocytes # (Manual) APTT ABG pH POC ABG pO2 ABG pO2 ABG Hemoglobin ABG Oxyhemoglobin ABG Sodium 152.5 H ABG Potassium ABG Chloride 119.0 H ABG Glucose 136 H Carboxyhemoglobin Sodium Potassium Chloride Carbon Dioxide BUN Creatinine Glucose POC Glucose Lactic Acid Calcium Ionized Calcium Phosphorus Magnesium 2.70 H AST Alkaline Phosphatase Total Protein Albumin Triglycerides Arterial Blood Glucose 136 H Arterial Blood Ionized Calcium 3.7 L Urine Creatinine 12/25/20 12/25/20 12/25/20 07:00 11:24 16:32 WBC RBC Hgb Hct MCHC RDW Plt Count Seg Neuts % (Manual) Lymphocytes % (Manual) Seg Neutrophils # Man Lymphocytes # (Manual) Monocytes # (Manual) APTT ABG pH POC ABG pO2 ABG pO2 ABG Hemoglobin ABG Oxyhemoglobin ABG Sodium ABG Potassium ABG Chloride ABG Glucose Carboxyhemoglobin Sodium 156 H Potassium Chloride 118.0 H Carbon Dioxide BUN 44 H Creatinine 1.7 H Glucose 126 H POC Glucose 110 H 126 H Lactic Acid Calcium 6.9 L Ionized Calcium Phosphorus Magnesium AST Alkaline Phosphatase Total Protein Albumin Triglycerides Arterial Blood Glucose Arterial Blood Ionized Calcium Urine Creatinine 12/25/20 12/25/20 12/26/20 18:18 23:23 03:30 WBC RBC Hgb Hct MCHC RDW Plt Count Seg Neuts % (Manual) Lymphocytes % (Manual) Seg Neutrophils # Man Lymphocytes # (Manual) Monocytes # (Manual) APTT ABG pH POC ABG pO2 ABG pO2 ABG Hemoglobin 11.8 L ABG Oxyhemoglobin ABG Sodium ABG Potassium 4.7 H ABG Chloride 114.0 H ABG Glucose 132 H Carboxyhemoglobin Sodium 151 H Potassium Chloride 114.3 H Carbon Dioxide BUN 51 H Creatinine 2.6 H D Glucose 122 H POC Glucose 115 H Lactic Acid Calcium 6.4 L Ionized Calcium Phosphorus Magnesium AST Alkaline Phosphatase Total Protein Albumin Triglycerides Arterial Blood Glucose 132 H Arterial Blood Ionized Calcium 3.6 L Urine Creatinine 12/26/20 12/26/20 12/26/20 04:55 06:01 06:01 WBC 21.6 H RBC Hgb Hct MCHC 31 L RDW 16.5 H Plt Count 136 L Seg Neuts % (Manual) Lymphocytes % (Manual) Seg Neutrophils # Man Lymphocytes # (Manual) Monocytes # (Manual) APTT ABG pH POC ABG pO2 ABG pO2 ABG Hemoglobin ABG Oxyhemoglobin ABG Sodium ABG Potassium ABG Chloride ABG Glucose Carboxyhemoglobin Sodium 173 H* D Potassium 6.1 H* D Chloride 137.0 H Carbon Dioxide BUN 73 H Creatinine 3.8 H Glucose 125 H POC Glucose 112 H Lactic Acid Calcium 6.2 L Ionized Calcium Phosphorus 5.70 H D Magnesium 2.90 H AST Alkaline Phosphatase Total Protein Albumin Triglycerides Arterial Blood Glucose Arterial Blood Ionized Calcium Urine Creatinine 12/26/20 12/26/20 12/26/20 08:33 11:19 22:00 WBC RBC Hgb Hct MCHC RDW Plt Count Seg Neuts % (Manual) Lymphocytes % (Manual) Seg Neutrophils # Man Lymphocytes # (Manual) Monocytes # (Manual) APTT ABG pH POC ABG pO2 ABG pO2 ABG Hemoglobin ABG Oxyhemoglobin ABG Sodium ABG Potassium ABG Chloride ABG Glucose Carboxyhemoglobin Sodium 147 H D Potassium 5.8 H D Chloride 108.8 H Carbon Dioxide 21 L BUN 68 H 68 H Creatinine 3.8 H 4.1 H Glucose 144 H 154 H POC Glucose 144 H Lactic Acid Calcium 6.5 L 5.8 L* Ionized Calcium Phosphorus Magnesium AST 215 H Alkaline Phosphatase Total Protein 4.7 L Albumin 1.5 L Triglycerides Arterial Blood Glucose Arterial Blood Ionized Calcium Urine Creatinine 12/26/20 12/26/20 12/27/20 23:13 Unknown 00:25 WBC RBC Hgb 11.1 L Hct MCHC RDW Plt Count Seg Neuts % (Manual) Lymphocytes % (Manual) Seg Neutrophils # Man Lymphocytes # (Manual) Monocytes # (Manual) APTT ABG pH POC ABG pO2 ABG pO2 ABG Hemoglobin ABG Oxyhemoglobin ABG Sodium ABG Potassium ABG Chloride ABG Glucose Carboxyhemoglobin Sodium Potassium Chloride Carbon Dioxide BUN Creatinine Glucose POC Glucose 163 H Lactic Acid Calcium Ionized Calcium Phosphorus 5.60 H Magnesium AST Alkaline Phosphatase Total Protein Albumin Triglycerides Arterial Blood Glucose Arterial Blood Ionized Calcium Urine Creatinine 12/27/20 12/27/20 12/27/20 02:57 04:15 04:15 WBC 28.5 H RBC Hgb 11.2 L Hct MCHC 31 L RDW 16.5 H Plt Count 130 L Seg Neuts % (Manual) Lymphocytes % (Manual) Seg Neutrophils # Man Lymphocytes # (Manual) Monocytes # (Manual) APTT ABG pH 7.238 L POC ABG pO2 139.1 H ABG pO2 ABG Hemoglobin 11.2 L ABG Oxyhemoglobin ABG Sodium 133.8 L ABG Potassium 5.2 H ABG Chloride ABG Glucose 182 H Carboxyhemoglobin Sodium 136 L Potassium 6.0 H Chloride Carbon Dioxide 18 L BUN 68 H Creatinine 4.1 H Glucose 166 H POC Glucose Lactic Acid Calcium 6.2 L Ionized Calcium Phosphorus 7.30 H D Magnesium AST Alkaline Phosphatase Total Protein Albumin Triglycerides 164 H Arterial Blood Glucose 182 H Arterial Blood Ionized Calcium 3.4 L Urine Creatinine 12/27/20 12/27/20 12/27/20 04:50 10:51 11:17 WBC RBC Hgb Hct MCHC RDW Plt Count Seg Neuts % (Manual) Lymphocytes % (Manual) Seg Neutrophils # Man Lymphocytes # (Manual) Monocytes # (Manual) APTT ABG pH POC ABG pO2 ABG pO2 ABG Hemoglobin ABG Oxyhemoglobin ABG Sodium ABG Potassium ABG Chloride ABG Glucose Carboxyhemoglobin Sodium Potassium Chloride Carbon Dioxide BUN Creatinine Glucose POC Glucose 140 H 113 H 154 H Lactic Acid Calcium Ionized Calcium Phosphorus Magnesium AST Alkaline Phosphatase Total Protein Albumin Triglycerides Arterial Blood Glucose Arterial Blood Ionized Calcium Urine Creatinine 12/27/20 12/27/20 12/28/20 12:40 23:17 05:36 WBC RBC Hgb Hct MCHC RDW Plt Count Seg Neuts % (Manual) Lymphocytes % (Manual) Seg Neutrophils # Man Lymphocytes # (Manual) Monocytes # (Manual) APTT ABG pH POC ABG pO2 ABG pO2 ABG Hemoglobin ABG Oxyhemoglobin ABG Sodium ABG Potassium ABG Chloride ABG Glucose Carboxyhemoglobin Sodium 135 L Potassium Chloride Carbon Dioxide 21 L BUN 62 H Creatinine 3.8 H Glucose 132 H POC Glucose 130 H 128 H Lactic Acid Calcium 5.6 L* Ionized Calcium Phosphorus Magnesium AST Alkaline Phosphatase Total Protein Albumin Triglycerides Arterial Blood Glucose Arterial Blood Ionized Calcium Urine Creatinine 12/28/20 12/28/20 12/28/20 07:08 07:28 07:28 WBC 27.2 H RBC 3.50 L Hgb 9.6 L Hct 30.8 L MCHC 31 L RDW 16.1 H Plt Count 111 L Seg Neuts % (Manual) 95.0 H Lymphocytes % (Manual) Seg Neutrophils # Man 25.8 H Lymphocytes # (Manual) 0.0 L Monocytes # (Manual) 1.1 H APTT ABG pH 7.200 L POC ABG pO2 67.2 L ABG pO2 ABG Hemoglobin 10.3 L ABG Oxyhemoglobin 89.6 L ABG Sodium 127.8 L ABG Potassium 5.1 H ABG Chloride ABG Glucose 132 H Carboxyhemoglobin 0.4 L Sodium 131 L Potassium 5.9 H Chloride Carbon Dioxide 15 L BUN 70 H Creatinine 4.0 H Glucose 118 H POC Glucose Lactic Acid Calcium 6.3 L Ionized Calcium Phosphorus 7.10 H Magnesium AST 144 H Alkaline Phosphatase Total Protein 4.8 L Albumin 1.3 L Triglycerides Arterial Blood Glucose 132 H Arterial Blood Ionized Calcium 3.5 L Urine Creatinine 12/28/20 12/28/20 12/28/20 11:37 13:25 16:38 WBC RBC Hgb Hct MCHC RDW Plt Count Seg Neuts % (Manual) Lymphocytes % (Manual) Seg Neutrophils # Man Lymphocytes # (Manual) Monocytes # (Manual) APTT ABG pH POC ABG pO2 ABG pO2 ABG Hemoglobin ABG Oxyhemoglobin ABG Sodium ABG Potassium ABG Chloride ABG Glucose Carboxyhemoglobin Sodium 133 L Potassium 5.1 H Chloride 97.1 L Carbon Dioxide 21 L BUN 77 H Creatinine 4.4 H Glucose 140 H POC Glucose 135 H 140 H Lactic Acid Calcium 6.3 L Ionized Calcium Phosphorus Magnesium AST Alkaline Phosphatase Total Protein Albumin Triglycerides Arterial Blood Glucose Arterial Blood Ionized Calcium Urine Creatinine 12/28/20 12/29/20 12/29/20 23:28 03:08 05:20 WBC RBC Hgb Hct MCHC RDW Plt Count Seg Neuts % (Manual) Lymphocytes % (Manual) Seg Neutrophils # Man Lymphocytes # (Manual) Monocytes # (Manual) APTT ABG pH 7.301 L POC ABG pO2 151.1 H ABG pO2 ABG Hemoglobin 8.7 L ABG Oxyhemoglobin 98.2 H ABG Sodium 123.4 L ABG Potassium ABG Chloride 97.0 L ABG Glucose 144 H Carboxyhemoglobin Sodium 131 L Potassium Chloride 93.4 L Carbon Dioxide BUN 79 H Creatinine 4.7 H Glucose 122 H POC Glucose 134 H Lactic Acid Calcium 5.5 L* Ionized Calcium Phosphorus 5.70 H Magnesium 1.60 L AST Alkaline Phosphatase Total Protein Albumin Triglycerides Arterial Blood Glucose 144 H Arterial Blood Ionized Calcium 3.4 L Urine Creatinine 12/29/20 12/29/20 05:20 06:01 WBC 21.0 H RBC 2.89 L Hgb 8.1 L Hct 25.5 L MCHC RDW 16.1 H Plt Count 124 L Seg Neuts % (Manual) Lymphocytes % (Manual) Seg Neutrophils # Man Lymphocytes # (Manual) Monocytes # (Manual) APTT ABG pH POC ABG pO2 ABG pO2 ABG Hemoglobin ABG Oxyhemoglobin ABG Sodium ABG Potassium ABG Chloride ABG Glucose Carboxyhemoglobin Sodium Potassium Chloride Carbon Dioxide BUN Creatinine Glucose POC Glucose 108 H Lactic Acid Calcium Ionized Calcium Phosphorus Magnesium AST Alkaline Phosphatase Total Protein Albumin Triglycerides Arterial Blood Glucose Arterial Blood Ionized Calcium Urine Creatinine
--- NOTE | 2020-12-29 09:50 | Operative Report ---
Operative Report Operative Report: Date: December 29, 2020 Surgeon: Freda Tena MD Founding Partner surgeon: Julia Brumfield DO Procedure:1. Abdominal exploration,2. Small bowel resection,3. small bowel anastamosis 4. 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 Patient had a segmental small bowel resection and was left in discontinuity threee times prior and covered with ABThera VAC. Patient has been septic, remaining on the ventilator in ICU with supportive care. Pt has been tolerating lower pressor requirements and is here today for fourth look, abdominal exploration to evaluate remaining small bowel and anastamosis. Details of procedure: Patient was transferred from ICU bed to the OR table in supine position. General anesthesia was induced maintaining his previous place ET tube. The ABThera wound VAC was removed and patient abdomen was prepped and draped in sterile fashion. The remaining sponge and VAC apparatus was removed from abdominal cavity. Patient continues to have less dilated segments of small bowel that were easily . There was noted to be any ischemic bowel or perforations. Both ends of small bowel were traced and found to be without obstruction from ligament of trietz to terminal ileum. Additional adhesions were taken down to mobilize small bowel to allow for a tension free anastamosis. A side to side stapled anastamosis was performed with a ALEX, and closed with a TA. The proximal segment of small bowel was noted to have a very thick woody wall and tore from the pressure of the TA. It was decided best to excise the anastamosis and redo it. A ALEX was used to transect the anastamosis to softer tissue. It was redone in the same fashion as the first with the exception of hand sewing the common enterotomy with vicryl followed by silk as lemberts on the serosa. A silk stitch was placed at the crotch and the anastamosis was checked and found to be patent without tension. The peritoneal cavity was copiously irrigated with normal saline followed by aspiration. An ABThera abdominal wound VAC was then placed over the abdominal contents and secured to suction. Patient was then transferred back to his ICU bed and taken to recovery stable condition. All counts were correct. The plan is to return to the OR one more time to check the viability of the anastamosis and close his abdominal cavity. Specimen: Segments of small bowel Complications: None immediate EBL: Minimal
[2020-12-29] MEDS: FAMOTIDINE 20 MG/2 ML INJ IV SCH (10:28)
[2020-12-29] MEDS: FLUCONAZOLE 200 MG 200 MG/100 ML BAG IV SCH (10:28)
--- NOTE | 2020-12-29 10:30 | Progress Note ---
Assessment and Plan Assessment and plan: This is a 60-year-old male with obesity, hypertension, nicotine dependence, PVD s/p stent placement on dual antiplatelet therapy, hyperlipidemia, OA, GERD, ventral hernia and small bowel obstruction who was admitted with small bowel obstruction and peritonitis Septic Shock, POA (presented with leukocytosis, tachycardia, tachypnea,febrile and evidence of peritonitis) COVID-19 PUI, ruled out Small bowel obstruction with peritonitis Ventral hernia Leukocytosis Hypernatremia Hypercholremia Hypocalcemia Acute Kidney Injury Obesity Hypertension Nicotine dependence CAD s/p stent placement Hyperlipidemia Osteoarthritis GERD History Interval history: This is a 60-year-old male with obesity, hypertension, nicotine dependence, PVD s/p stent placement on dual antiplatelet therapy, hyperlipidemia, OA, GERD, ventral hernia with SBO who presents to the emergency department on 12/20 with severe, diffuse, worsened with movement, slightly relieved with rest abdominal pain rated at 10/10 with decreased oral intake, nausea and multiple episodes of vomiting. Patient underwent a CT of his abdomen/pelvis and was found to have evidence of small bowel obstruction as well as clinical findings consistent with acute peritonitis. Patient was admitted to the hospital service with acute peritonitis and incarcerated ventral hernia with consults to [facility] and surgery. 12/21: Patient is status post ex lap, extensive lysis of adhesions, small bowel resection, peritoneal lavage and ABThera abdominal wound VAC placement by Dr. Tena and Dr. Brumfield on 12/20 with removal of a 70 cm segment of necrotic small bowel. Patient was intubated and sedated on propofol 10/ 4 at the time of my examination on Assist-control, rate of 24, PEEP of 6, tidal volume of 550 and FiO2 35%. Patient needed to be deeply sedated and there was a became hypotensive. Patient was started on patient for support with Levophed and received bolus of IVF. 12/22: Patient was febrile to 103 and vancomycin and Diflucan were added by [facility] and infectious disease was consulted and they increased Zosyn and stop vancomycin. Patient was given additional 1 L bolus today for CVP goal of 10-12. At the time of examination patient was on Levophed, propofol and fentanyl CMV tidal volume 500, rate of 24, PEEP of 6 and FiO2 65%. Plan for OR tomorrow 12/23: Patient Cr/BUN noted to be increased and nephrology was consulted. ID decreased the zosyn dose d/r renal function. Urine studies ordered. [place] placed today. LR boluses per [facility], TPN to be started. Fractional excretion of sodium calculated at 0.16 indicating prerenal state 12/24: Patient is status post abdominal exploration, small bowel resection of 4 to 5 cm segment of dusky small bowel, peritoneal lavage and ABThera wound VAC placement on 12/23 with surgery, leukocytosis and renal function is improving, worsening hypernatremia and hyperchloremia. Patient will be started on TPN today. We will place on SSI/Accu-Cheks every every 6 hours. Patient noted to be nearly maxed on Levophed and vasopressin was ordered. Remains sedated and on MV 12/25: Leukocytosis continues to improve, given Ca Gluconate today, Hypernatremia, Cr and hyperchorlemia slightly worsened today. Patient is sedated with propofol and fentanyl on CMV TV 500, Rate 24, Peep 6, FiO2 50%. He remains on levophed. Possible OR Saturday. 12/28: Patient is orally intubated with AC mode ventilation rate 24, tidal volume 500, FiO2 75% and PEEP of 6. POD#8 s/p ex lap and small bowel resection for necrotic bowel secondary to incarcerated ventral hernia left with open abdomen. POD#5 s/p abdominal exploration with segmental small bowel resection. abthera placement POD#2 s/p abdominal exploration, small bowel resection for ischemia, abthera placement -[facility], surgery, infectious disease, nephrology consulted, appreciate recommendations -IV abx per ID: Zosyn, fluconazole -NGT to LIWS -NPO for now, TPN -SSI, Accucheck q6 -Vasopressor support with levophed -On mechanical ventilation, wean as tolerated, VAP bundle -Sedated with propofol and analgesia with fentanyl drip -Trend CBC, BMP, Mg, Phos -GI/DVT prophylaxis: PPI, SCDs to bilateral lower extremities while in bed, avoid chemical anticoagulation to cleared by surgery 12/29: Patient underwent abdominal exploration, small bowel resection, small bowel anastomosis and ABThera wound VAC placement this a.m. Patient remains on AC mode ventilation with a rate of 24, tidal volume 500, FiO2 65% and PEEP of 6. Continue antibiotics per ID recommendations. Continue vasopressor support as needed. Continue TPN for nutritional support. The high probability of a clinically significant, sudden or life threatening deterioration of the [multi] system(s) required my full and direct attention, intervention and personal management. The aggregate critical care time was [32] minutes. This time is in addition to time spent performing re continue sedation with propofol and fentanyl as needed. Ported procedures but includes the following: [x] Data Review and interpretation [x] Patient assessment and monitoring of vital signs [x] Documentation [x] Medication orders and management History Interval history: No new issues overnight. Hospitalist Physical - Constitutional Vitals: Temp Pulse Resp BP Pulse Ox 97.6 F 107 H 20 114/66 92 12/29/20 07:00 12/29/20 10:15 12/29/20 10:15 12/29/20 10:15 12/29/20 10:15 General appearance: Present: no acute distress, well-nourished - EENT Eyes: Present: PERRL, EOM intact ENT: hearing intact, clear oral mucosa, dentition normal - Neck Neck: Present: supple, normal ROM - Respiratory Respiratory effort: normal Respiratory: bilateral: CTA - Cardiovascular Rhythm: regular Heart Sounds: Present: S1 & S2. Absent: gallop, rub - Extremities Extremities: no ischemia, No edema, Full ROM - Abdominal General gastrointestinal: soft, non-tender, non-distended, normal bowel sounds - Integumentary Integumentary: Present: clear, warm, dry - Neurologic Neurologic: CNII-XII intact, moves all extremities HEART Score - HEART Score Troponin: Troponin T < 0.010 ng/mL (0.00-0.029) 12/20/20 13:58 Results - Labs CBC & Chem 7: 12/29/20 05:20 12/29/20 05:20 Labs: Laboratory Last Values WBC 21.0 K/mm3 (4.5-11.0) H 12/29/20 05:20 RBC 2.89 M/mm3 (3.65-5.03) L 12/29/20 05:20 Hgb 8.1 gm/dl (11.8-15.2) L 12/29/20 05:20 Hct 25.5 % (35.5-45.6) L 12/29/20 05:20 MCV 88 fl (84-94) 12/29/20 05:20 MCH 28 pg (28-32) 12/29/20 05:20 MCHC 32 % (32-34) 12/29/20 05:20 RDW 16.1 % (13.2-15.2) H 12/29/20 05:20 Plt Count 124 K/mm3 (140-440) L 12/29/20 05:20 Add Manual Diff Complete 12/28/20 07:28 Total Counted 100 12/28/20 07:28 Seg Neutrophils % Engineering Equipment Operator 12/28/20 07:28 Seg Neuts % (Manual) 95.0 % (40.0-70.0) H 12/28/20 07:28 Band Neutrophils % 1.0 % 12/28/20 07:28 Lymphocytes % (Manual) 3.0 % (13.4-35.0) L 12/21/20 08:14 Monocytes % (Manual) 4.0 % (0.0-7.3) 12/28/20 07:28 Nucleated RBC % Not Reportable 12/28/20 07:28 Seg Neutrophils # Man 25.8 K/mm3 (1.8-7.7) H 12/28/20 07:28 Band Neutrophils # 0.3 K/mm3 12/28/20 07:28 Lymphocytes # (Manual) 0.0 K/mm3 (1.2-5.4) L 12/28/20 07:28 Abs React Lymphs (Man) 0.0 K/mm3 12/28/20 07:28 Monocytes # (Manual) 1.1 K/mm3 (0.0-0.8) H 12/28/20 07:28 Eosinophils # (Manual) 0.0 K/mm3 (0.0-0.4) 12/28/20 07:28 Basophils # (Manual) 0.0 K/mm3 (0.0-0.1) 12/28/20 07:28 Metamyelocytes # 0.0 K/mm3 12/28/20 07:28 Myelocytes # 0.0 K/mm3 12/28/20 07:28 Promyelocytes # 0.0 K/mm3 12/28/20 07:28 Blast Cells # 0.0 K/mm3 12/28/20 07:28 WBC Morphology Not Reportable 12/28/20 07:28 Hypersegmented Neuts Not Reportable 12/28/20 07:28 Hyposegmented Neuts Not Reportable 12/28/20 07:28 Hypogranular Neuts Not Reportable 12/28/20 07:28 Smudge Cells Not Reportable 12/28/20 07:28 Toxic Granulation Not Reportable 12/28/20 07:28 Toxic Vacuolation Not Reportable 12/28/20 07:28 Dohle Bodies Not Reportable 12/28/20 07:28 Pelger-Huet Anomaly Not Reportable 12/28/20 07:28 Mirian Rods Not Reportable 12/28/20 07:28 Platelet Estimate Consistent w auto 12/28/20 07:28 Clumped Platelets Not Reportable 12/28/20 07:28 Plt Clumps, EDTA Not Reportable 12/28/20 07:28 Large Platelets Not Reportable 12/28/20 07:28 Giant Platelets Not Reportable 12/28/20 07:28 Platelet Satelliting Not Reportable 12/28/20 07:28 Plt Morphology Comment Not Reportable 12/28/20 07:28 RBC Morphology Not Reportable 12/28/20 07:28 Dimorphic RBCs Not Reportable 12/28/20 07:28 Polychromasia Not Reportable 12/28/20 07:28 Hypochromasia Few 12/28/20 07:28 Poikilocytosis Not Reportable 12/28/20 07:28 Anisocytosis Few 12/28/20 07:28 Microcytosis Not Reportable 12/28/20 07:28 Macrocytosis Not Reportable 12/28/20 07:28 Spherocytes Not Reportable 12/28/20 07:28 Pappenheimer Bodies Not Reportable 12/28/20 07:28 Sickle Cells Not Reportable 12/28/20 07:28 Target Cells Not Reportable 12/28/20 07:28 Tear Drop Cells Not Reportable 12/28/20 07:28 Ovalocytes Not Reportable 12/28/20 07:28 Helmet Cells Not Reportable 12/28/20 07:28 [employer] Bodies Not Reportable 12/28/20 07:28 Renner Rings Not Reportable 12/28/20 07:28 Jonathan Cells Not Reportable 12/28/20 07:28 Bite Cells Not Reportable 12/28/20 07:28 Crenated Cell Not Reportable 12/28/20 07:28 Elliptocytes Not Reportable 12/28/20 07:28 Acanthocytes (Spur) Not Reportable 12/28/20 07:28 Rouleaux Not Reportable 12/28/20 07:28 Hemoglobin C Crystals Not Reportable 12/28/20 07:28 Schistocytes Not Reportable 12/28/20 07:28 Malaria parasites Not Reportable 12/28/20 07:28 Dylon Bodies Not Reportable 12/28/20 07:28 Hem Pathologist Commnt No 12/28/20 07:28 APTT 49.4 Sec. (24.2-36.6) H 12/20/20 13:58 ABG pH 7.301 (7.320-7.450) L 12/29/20 03:08 POC ABG pCO2 41.4 mmHg (32.0-48.0) 12/29/20 03:08 ABG pCO2 51.0 mm Hg 12/20/20 21:30 POC ABG pO2 151.1 mmHg (83-108) H 12/29/20 03:08 ABG pO2 104.4 mm Hg (80.0-90.0) H 12/20/20 21:30 POC ABG HCO3 20.0 12/29/20 03:08 ABG HCO3 25.3 mmol/L (20.0-26.0) 12/20/20 21:30 ABG O2 Saturation 99.1 (0-100) 12/29/20 03:08 ABG O2 Content 20.3 (0.0-44) 12/20/20 21:30 POC ABG Base Excess -6.0 12/29/20 03:08 ABG Base Excess -1.7 mmol/L (-2.0-3.0) 12/20/20 21:30 ABG Hemoglobin 8.7 (12.0-17.5) L 12/29/20 03:08 ABG Oxyhemoglobin 98.2 (94-98) H 12/29/20 03:08 ABG Carboxyhemoglobin 1.3 % (0.0-5.0) 12/20/20 21:30 ABG Methemoglobin 0.3 (0.0-1.5) 12/29/20 03:08 ABG Sodium 123.4 mmol/L (136.0-145.0) L 12/29/20 03:08 ABG Potassium 3.8 mmol/L (3.40-4.50) 12/29/20 03:08 ABG Chloride 97.0 mmol/L (98-107) L 12/29/20 03:08 ABG Glucose 144 mg/dL (65-95) H 12/29/20 03:08 Oxyhemoglobin 95.2 % (95.0-99.0) 12/20/20 21:30 Carboxyhemoglobin 0.6 (0.5-1.5) 12/29/20 03:08 FiO2 100 % 12/20/20 21:30 FiO2 % 75.0 12/29/20 03:08 Sodium 131 mmol/L (137-145) L 12/29/20 05:20 Potassium 4.0 mmol/L (3.6-5.0) D 12/29/20 05:20 Chloride 93.4 mmol/L (98-107) L 12/29/20 05:20 Carbon Dioxide 23 mmol/L (22-30) 12/29/20 05:20 Anion Gap 19 mmol/L 12/29/20 05:20 BUN 79 mg/dL (9-20) H 12/29/20 05:20 Creatinine 4.7 mg/dL (0.8-1.3) H 12/29/20 05:20 Estimated GFR 13 ml/min 12/29/20 05:20 BUN/Creatinine Ratio 17 % 12/29/20 05:20 Glucose 122 mg/dL (75-100) H 12/29/20 05:20 POC Glucose 108 mg/dL (70-105) H 12/29/20 06:01 Lactic Acid 1.70 mmol/L (0.7-2.0) 12/20/20 16:20 Calcium 5.5 mg/dL (8.4-10.2) L* 12/29/20 05:20 Ionized Calcium 4.1 mg/dL (4.8-5.6) L 12/21/20 21:28 Phosphorus 5.70 mg/dL (2.5-4.5) H 12/29/20 05:20 Magnesium 1.60 mg/dL (1.7-2.3) L 12/29/20 05:20 Total Bilirubin 0.50 mg/dL (0.1-1.2) 12/28/20 07:28 AST 144 units/L (5-40) H 12/28/20 07:28 ALT 33 units/L (7-56) 12/28/20 07:28 Alkaline Phosphatase 90 units/L (35-129) 12/28/20 07:28 Troponin T < 0.010 ng/mL (0.00-0.029) 12/20/20 13:58 Total Protein 4.8 g/dL (6.3-8.2) L 12/28/20 07:28 Albumin 1.3 g/dL (3.9-5) L 12/28/20 07:28 Albumin/Globulin Ratio 0.4 % 12/28/20 07:28 Triglycerides 164 mg/dL (2-149) H 12/27/20 04:15 Arterial Blood Glucose 144 mg/dL (65-95) H 12/29/20 03:08 Arterial Blood Ionized Calcium 3.4 mg/dL (4.6-5.3) L 12/29/20 03:08 Urine Color Yellow (Yellow) 12/23/20 12:15 Urine Turbidity Cloudy (Clear) 12/23/20 12:15 Urine pH 5.0 (5.0-7.0) 12/23/20 12:15 Ur Specific [place] 1.019 (1.003-1.030) 12/23/20 12:15 Urine Protein <15 mg/dl mg/dL (Negative) 12/23/20 12:15 Urine Glucose (UA) Neg mg/dL (Negative) 12/23/20 12:15 Urine Ketones Neg mg/dL (Negative) 12/23/20 12:15 Urine Blood Sm (Negative) 12/23/20 12:15 Urine Nitrite Neg (Negative) 12/23/20 12:15 Urine Bilirubin Neg (Negative) 12/23/20 12:15 Urine Urobilinogen < 2.0 mg/dL (<2.0) 12/23/20 12:15 Ur Leukocyte Esterase Neg (Negative) 12/23/20 12:15 Urine WBC (Auto) 5.0 /HPF (0.0-6.0) 12/23/20 12:15 Urine RBC (Auto) 2.0 /HPF (0.0-6.0) 12/23/20 12:15 U Epithel Cells (Auto) < 1.0 /HPF (0-13.0) 12/20/20 Unknown Urine Bacteria (Auto) 1+ /HPF (Negative) 12/23/20 12:15 Triple Phos Crystals 2+ 12/23/20 12:15 Hyaline Casts 19 /LPF 12/20/20 Unknown Urine Mucus Few /HPF 12/23/20 12:15 Urine Eosinophils None seen (None Seen) 12/23/20 12:15 Urine Creatinine 78.1 mg/dL (0.1-20.0) H 12/23/20 12:15 Urine Sodium 13 mmol/L 12/23/20 12:15 Fraction Sodium Excret 0.2 12/23/20 12:15 Random Vancomycin 7.9 ug/mL (0-40.0) 12/23/20 12:15 Coronavirus (PCR) Negative (Negative) 12/21/20 Unknown Blood Type A NEGATIVE 12/29/20 05:20 Antibody Screen Negative 12/29/20 05:20 Lawrence/IV: Voiding Method Indwelling Catheter Active Medications - Current Medications Current Medications: Generic Name Dose Route Start Last Admin Trade Name Freq PRN Reason Stop Dose Admin Acetaminophen 650 mg 12/21/20 11:51 12/25/20 20:35 Acetaminophen 650 Mg Rect Supp PA 650 mg Q4H PRN Administration TEMP >/=100.4 Dextrose 50 ml 12/24/20 10:49 Dextrose 50% In Water (25gm) 50 Ml Syringe IV Q30MIN PRN Hypoglycemia Protocol Famotidine 20 mg 12/26/20 10:00 12/28/20 10:10 Famotidine 20 Mg/2 Ml Inj IV 20 mg DAILY ASCENCION Administration Fentanyl 50 mcg 12/20/20 21:58 12/21/20 03:46 Fentanyl 100 Mcg/2 Ml Inj IV 50 mcg Q10MIN PRN Administration ANALGESIA Hydrophilic Ointment 1 applic 12/20/20 21:58 Lip Therapy Vaseline TP Q2HR PRN Dry Lips Fentanyl Citrate 2,000 mcg in 100 mls @ 6.01 mls/hr 12/20/20 22:00 12/29/20 10:24 Fentanyl Drip Premix IV 3 mcg/kg/hr TITR ASCENCION 18.03 mls/hr Administration Protocol 1 MCG/KG/HR Propofol 1,000 mg in 100 mls @ 3.606 mls/hr 12/20/20 22:00 12/29/20 06:06 Diprivan 10 Mg/Ml IV 25 mcg/kg/min TITR ASCENCION 18.03 mls/hr Administration Protocol 5 MCG/KG/MIN NORepinephrine/NS 8 MG-250 ML 8 mg in 250 mls @ 3.75 mls/hr 12/21/20 09:00 12/29/20 00:00 Norepinephrine/Ns 8 Mg-250 Ml (Double Conc) IV 2 mcg/min TITRATE ASCENCION 3.75 mls/hr Titration Protocol 2 MCG/MIN Vasopressin 20 unit/ Sodium 101 mls @ 9.09 mls/hr 12/24/20 09:00 12/28/20 22:10 Chloride IV 0.03 units/min TITR ASCENCION 9.09 mls/hr Administration Protocol 0.03 UNITS/MIN Piperacillin Sod/Tazobactam Sod 4.5 gm in 100 mls @ 200 mls/hr 12/26/20 18:00 12/29/20 06:35 Zosyn/Ns 4.5gm/100ml IV Infused Q12H ASCENCION Infusion Protocol Fluconazole 200 mg in 100 mls @ 100 mls/hr 12/26/20 10:00 12/28/20 12:40 Diflucan IV Infused Q24H ASCENCION Infusion Protocol Sodium Bicarbonate 150 meq/ 1,150 mls @ 125 mls/hr 12/28/20 11:00 12/29/20 06:09 Dextrose IV 125 mls/hr DIRECT ASCENCION Administration Amino Acids/Electrolytes/Dextrose 2,400 mls @ 100 mls/hr 12/28/20 20:00 12/28/20 20:29 Tpn Adult IV 12/29/20 19:59 100 mls/hr DAILY@2000 ASCENCION Administration Protocol Insulin Human Regular 0 units 12/28/20 00:00 12/29/20 06:51 Insulin Regular, Human 100 Units/1 Ml SUB-Q Not Given Q6H ASCENCION Protocol Multi-Ingred Cream/Lotion/Oil/Oint 1 applic 12/20/20 21:58 Mineral Oil/Petrolatum, White Ophth Oint 3.5 Gm OU Q4HR PRN Dry Eye(s) Sodium Chloride 10 ml 12/20/20 22:00 12/28/20 22:10 Sodium Chloride 0.9% 10 Ml Flush Syringe IV 10 ml BID ASCENCION Administration Sodium Chloride 10 ml 12/20/20 16:42 Sodium Chloride 0.9% 10 Ml Flush Syringe IV PRN PRN LINE FLUSH Nutrition/Malnutrition Assess - Dietary Evaluation Nutrition/Malnutrition Findings: Nutrition Notes Start: 12/21/20 09:06 Freq: Status: Active Protocol: Document 12/29/20 07:47 MK (Rec: 12/29/20 07:53 MK [id number]) Nutrition Notes Initial or Follow up Reassessment Current Diagnosis Coronary Artery Disease, Hypertension,Small Bowel Obstruction,Hyperlipidemia Other Pertinent Diagnosis gangrenous small bowel, s/p small bowel ressection, peritonitis Current Diet TPN at 100 ml/hr Labs/Tests Na 131 BUN 79 Cr 4.7 Ca 5.5 (adj: 7.66) Mg 1.6 Pertinent Medications Propofol at 18.03ml/hr ( provides 476kcal), Vasopressin gtt, Levophed gtt Height 6 ft Weight 141.1 kg [place] Body Weight (kg) 80.90 BMI 42.2 Weight change and time frame Wt change noted. Pt with edema Weight Status Morbidly Obese Subjective/Other Information Day 6 CPN. Pt having abd washout this AM. Burn Absent Trauma Absent GI Symptoms Other Current % PO Negligible Minimum of two criteria No Fluid Accumulation Mild (non-severe) #2 Nutrition Diagnosis Increased nutrient needs ( specify in comment below) Diagnosis Progress(for reassessment Continues documentation) #1 Nutrition Diagnosis Inadequate oral intake Diagnosis Progress(for reassessment Continues documentation) Is patient on ventilator? Yes Is Patient Ambulatory and/or Out of Bed No REE-([facility]-confined to bed) 2720.772 Kcal/Kg value to use for calculation 15 Approximate Energy Requirements Using 2117 kcal/Kg Calculation Used for Recommendations Kcal/kg Additional Notes Pro needs >2g/kg IBW: >162g/ day Fluid needs per MD Nutrition Intervention Nutrition Support: Continue CPN at 100 ml/hr: MVI , 16.7% dextrose, Mg 5 mEq, Ca 10 mEq, Cl/Acetate 50/50 Osmolality: 1200 Kcal 1,618 Protein (gm) 80 Carbohydrates (gm) 400 Fat (gm) 0 Fluid (mL) 2,400 Fiber (gm) 0 Goal #1 Meet needs as best as possible via CPN Follow-Up By: 12/30/20 Additional Comments Labs in am: BMP, Mg, Phos
--- NOTE | 2020-12-29 10:44 | Progress Note ---
Assessment and Plan Cultures: 12/20/2020 sputum culture: In process 12/20/2020 blood culture: No growth 12/20/2020 urine culture: Usual skin giorgio A/P: 60-year-old male with obesity, hypertension, tobacco abuse, coronary artery disease, admitted to the hospital on 12/20/2020 with: #Septic shock: Secondary to intra-abdominal source, peritonitis. Patient with necrotic bowel secondary to incarcerated ventral hernia. Status post exploratory laparotomy, extensive adhesiolysis, small bowel resection and peritoneal lavage along with ABThera VAC placement on 12/20/2020. #JONI: Renally dose antibiotics. #Morbid obesity Recs: -continue renally dosed Zosyn. -continue Fluconazole 200 mg daily -increase in leukocytosis likely reactive to surgery. Continue to follow. Priscilla Marie MD [facility] ([facility] O: [phone] F: [phone] Subjective Date of service: 12/29/20 Principal diagnosis: SBO and necrosis of large part of small intestine Interval history: Afebrile with low temperatures, white count 21 which is improving. Returned to the OR for abdominal closure. Objective - Exam Narrative Exam: Physical Exam: Constitutional: sedated, intubated, on the vent Head, Ears, Nose: Normocephalic, atraumatic. External ears, nose normal Eyes: Conjunctivae/corneas clear. No icterus. No ptosis. Neck: intubated Oral: intubated Cardiovascular: S1, S2 + Respiratory: AE fair bilaterally and equal GI: Abdomen dressed Musculoskeletal: No pedal edema, no cyanosis. Skin: No rash or abscess Hem/Lymphatic: No palpable cervical or supraclavicular nodes. No lymphangitis Psych: no agitation Neurological: sedated, intubated, on the vent, exam limited - Constitutional Vitals: Vital Signs Temp Pulse Resp BP Pulse Ox 97.6 F 107 H 20 114/66 92 12/29/20 07:00 12/29/20 10:15 12/29/20 10:15 12/29/20 10:15 12/29/20 10:15 Temperature -Last 24 Hours Temperature 97.6 F Temperature 97.4 F Temperature 96.8 F Temperature 96.3 F Temperature 97.3 F Temperature 97.6 F - Labs CBC & Chem 7: 12/29/20 05:20 12/29/20 05:20 Labs: Abnormal lab results 12/28/20 12/28/20 12/28/20 Range/Units 05:36 07:28 11:37 WBC (4.5-11.0) K/mm3 RBC (3.65-5.03) M/mm3 Hgb (11.8-15.2) gm/dl Hct (35.5-45.6) % RDW (13.2-15.2) % Plt Count (140-440) K/mm3 Seg Neuts % (Manual) 95.0 H (40.0-70.0) % Seg Neutrophils # Man 25.8 H (1.8-7.7) K/mm3 Lymphocytes # (Manual) 0.0 L (1.2-5.4) K/mm3 Monocytes # (Manual) 1.1 H (0.0-0.8) K/mm3 ABG pH (7.320-7.450) POC ABG pO2 (83-108) mmHg ABG Hemoglobin (12.0-17.5) ABG Oxyhemoglobin (94-98) ABG Sodium (136.0-145.0) mmol/L ABG Chloride (98-107) mmol/L ABG Glucose (65-95) mg/dL Sodium (137-145) mmol/L Potassium (3.6-5.0) mmol/L Chloride (98-107) mmol/L Carbon Dioxide (22-30) mmol/L BUN (9-20) mg/dL Creatinine (0.8-1.3) mg/dL Glucose (75-100) mg/dL POC Glucose 128 H 135 H (70-105) mg/dL Calcium (8.4-10.2) mg/dL Phosphorus (2.5-4.5) mg/dL Magnesium (1.7-2.3) mg/dL Arterial Blood Glucose (65-95) mg/dL Arterial Blood Ionized Calcium (4.6-5.3) mg/dL 12/28/20 12/28/20 12/28/20 Range/Units 13:25 16:38 23:28 WBC (4.5-11.0) K/mm3 RBC (3.65-5.03) M/mm3 Hgb (11.8-15.2) gm/dl Hct (35.5-45.6) % RDW (13.2-15.2) % Plt Count (140-440) K/mm3 Seg Neuts % (Manual) (40.0-70.0) % Seg Neutrophils # Man (1.8-7.7) K/mm3 Lymphocytes # (Manual) (1.2-5.4) K/mm3 Monocytes # (Manual) (0.0-0.8) K/mm3 ABG pH (7.320-7.450) POC ABG pO2 (83-108) mmHg ABG Hemoglobin (12.0-17.5) ABG Oxyhemoglobin (94-98) ABG Sodium (136.0-145.0) mmol/L ABG Chloride (98-107) mmol/L ABG Glucose (65-95) mg/dL Sodium 133 L (137-145) mmol/L Potassium 5.1 H (3.6-5.0) mmol/L Chloride 97.1 L (98-107) mmol/L Carbon Dioxide 21 L (22-30) mmol/L BUN 77 H (9-20) mg/dL Creatinine 4.4 H (0.8-1.3) mg/dL Glucose 140 H (75-100) mg/dL POC Glucose 140 H 134 H (70-105) mg/dL Calcium 6.3 L (8.4-10.2) mg/dL Phosphorus (2.5-4.5) mg/dL Magnesium (1.7-2.3) mg/dL Arterial Blood Glucose (65-95) mg/dL Arterial Blood Ionized Calcium (4.6-5.3) mg/dL 12/29/20 12/29/20 12/29/20 Range/Units 03:08 05:20 05:20 WBC 21.0 H (4.5-11.0) K/mm3 RBC 2.89 L (3.65-5.03) M/mm3 Hgb 8.1 L (11.8-15.2) gm/dl Hct 25.5 L (35.5-45.6) % RDW 16.1 H (13.2-15.2) % Plt Count 124 L (140-440) K/mm3 Seg Neuts % (Manual) (40.0-70.0) % Seg Neutrophils # Man (1.8-7.7) K/mm3 Lymphocytes # (Manual) (1.2-5.4) K/mm3 Monocytes # (Manual) (0.0-0.8) K/mm3 ABG pH 7.301 L (7.320-7.450) POC ABG pO2 151.1 H (83-108) mmHg ABG Hemoglobin 8.7 L (12.0-17.5) ABG Oxyhemoglobin 98.2 H (94-98) ABG Sodium 123.4 L (136.0-145.0) mmol/L ABG Chloride 97.0 L (98-107) mmol/L ABG Glucose 144 H (65-95) mg/dL Sodium 131 L (137-145) mmol/L Potassium (3.6-5.0) mmol/L Chloride 93.4 L (98-107) mmol/L Carbon Dioxide (22-30) mmol/L BUN 79 H (9-20) mg/dL Creatinine 4.7 H (0.8-1.3) mg/dL Glucose 122 H (75-100) mg/dL POC Glucose (70-105) mg/dL Calcium 5.5 L* (8.4-10.2) mg/dL Phosphorus 5.70 H (2.5-4.5) mg/dL Magnesium 1.60 L (1.7-2.3) mg/dL Arterial Blood Glucose 144 H (65-95) mg/dL Arterial Blood Ionized Calcium 3.4 L (4.6-5.3) mg/dL 12/29/20 Range/Units 06:01 WBC (4.5-11.0) K/mm3 RBC (3.65-5.03) M/mm3 Hgb (11.8-15.2) gm/dl Hct (35.5-45.6) % RDW (13.2-15.2) % Plt Count (140-440) K/mm3 Seg Neuts % (Manual) (40.0-70.0) % Seg Neutrophils # Man (1.8-7.7) K/mm3 Lymphocytes # (Manual) (1.2-5.4) K/mm3 Monocytes # (Manual) (0.0-0.8) K/mm3 ABG pH (7.320-7.450) POC ABG pO2 (83-108) mmHg ABG Hemoglobin (12.0-17.5) ABG Oxyhemoglobin (94-98) ABG Sodium (136.0-145.0) mmol/L ABG Chloride (98-107) mmol/L ABG Glucose (65-95) mg/dL Sodium (137-145) mmol/L Potassium (3.6-5.0) mmol/L Chloride (98-107) mmol/L Carbon Dioxide (22-30) mmol/L BUN (9-20) mg/dL Creatinine (0.8-1.3) mg/dL Glucose (75-100) mg/dL POC Glucose 108 H (70-105) mg/dL Calcium (8.4-10.2) mg/dL Phosphorus (2.5-4.5) mg/dL Magnesium (1.7-2.3) mg/dL Arterial Blood Glucose (65-95) mg/dL Arterial Blood Ionized Calcium (4.6-5.3) mg/dL
[2020-12-29] MEDS: VASOPRESSIN 20 UNIT in SODIUM CHLORIDE 0.9% 100 ML IV SCH ×2 (10:51→20:41)
--- NOTE | 2020-12-29 10:56 | Anesthesia Day of Surgery ---
Anesthesia Day of Surgery - Day of Surgery Patient Examined: Yes Patient H&P Reviewed: Yes Patient is NPO: Yes
--- NOTE | 2020-12-29 11:02 | Post Anesthesia Evaluation ---
- Post Anesthesia Evaluation Patient Participated: No Airway Patent: Yes Stable Respiratory Function: Yes Nausea/Vomiting: No Temp > 96.8F: Yes Pain Manageable: Yes Adequeate Hydration: Yes Anesthesia Complications: No Block Receding Appropriately: Not Applicable Patient on Ventilator: Yes Other Comments: Transported to ICU with VS monitored and stable, respirations via AMBU + Peep valve at 10. Pressors and sedation running. On arrival to ICU, SpO2 noted to downtrend from ~95% to 90%, so RT instructed to increase Peep and FiO2 for now. SPO2 >90% and VS otherwise stable at preop baseline at time of transfer of care.
--- NOTE | 2020-12-29 11:12 | Progress Note ---
Assessment and Plan Impression * Acute kidney injury. Most likely prerenal with additional tubular injury as well * Incarcerated hernia with ischemic bowel. Status post bowel resection * Hypernatremia * Sepsis * Respiratory failure * Hyperkalemia * Metabolic Acidosis, Gap Recommendations * Renal function worsening with creatinine from 2.6->3.8->4.1->4.0->4.7 with worsening urine output * Lytes at goal today, but need to stop HCO3 gtt given worsening hypocalcemia * Will plan to start HD tomorrow if hemodynamically stable given renal trend, will slowly likely need fluid removal as well * Appreciate Dr. Cherry for placement of HD CVC * For now will switch to NS infusion to encourage renal perfusion but suspect this will not be enough to stave off dialysis * Patient currently has indwelling Lawrence catheter in place * TPN per nutrition/primary * Pressors to maintain MAP greater than 65 * Avoid nephrotoxins * Monitor fluid status and electrolytes closely Subjective Date of service: 12/29/20 Principal diagnosis: SBO and necrosis of large part of small intestine Interval history: Remains intubated, sedated on pressors. Went to OR this AM Objective - Exam Narrative Exam: General appearance: ill appearing appears stated age, intubated EENT: PERRL, mucous membranes moist Neck: no JVD Respiratory: Present: Ronchi (Few scattered rhonchi) Cardiology: regular, normal heart rate Gastrointestinal: other (Midline incision noted. Wound VAC in place.) Integumentary: other (No edema) - Vital Signs Vital signs: Vital Signs - 12hr 12/28/20 12/28/20 12/28/20 23:15 23:30 23:45 Temperature Pulse Rate 73 74 75 Pulse Rate [ From Monitor] Respiratory 24 24 24 Rate Blood Pressure 98/49 101/51 99/50 O2 Sat by Pulse 94 98 96 Oximetry 12/29/20 12/29/20 12/29/20 00:00 00:15 00:30 Temperature 96.8 F L Pulse Rate 75 76 76 Pulse Rate [ 75 From Monitor] Respiratory 24 21 24 Rate Blood Pressure 98/52 98/52 102/48 O2 Sat by Pulse 95 99 95 Oximetry 12/29/20 12/29/20 12/29/20 00:45 01:00 01:15 Temperature Pulse Rate 75 75 74 Pulse Rate [ From Monitor] Respiratory 24 24 24 Rate Blood Pressure 100/51 98/49 97/51 O2 Sat by Pulse 95 96 95 Oximetry 12/29/20 12/29/20 12/29/20 01:30 01:45 02:00 Temperature Pulse Rate 74 73 73 Pulse Rate [ From Monitor] Respiratory 24 Rate Blood Pressure 105/51 102/52 106/49 O2 Sat by Pulse 97 96 97 Oximetry 12/29/20 12/29/20 12/29/20 02:15 02:30 02:45 Temperature Pulse Rate 73 72 74 Pulse Rate [ From Monitor] Respiratory 24 Rate Blood Pressure 100/49 102/53 98/48 O2 Sat by Pulse 96 96 97 Oximetry 12/29/20 12/29/20 12/29/20 03:00 03:15 03:31 Temperature Pulse Rate 74 75 84 Pulse Rate [ From Monitor] Respiratory 18 Rate Blood Pressure 100/50 97/49 79/49 O2 Sat by Pulse 96 97 Oximetry 12/29/20 12/29/20 12/29/20 03:45 04:00 04:14 Temperature 97.4 F L Pulse Rate 79 79 79 Pulse Rate [ 79 From Monitor] Respiratory 22 25 H Rate Blood Pressure 97/47 93/46 92/51 O2 Sat by Pulse 98 99 98 Oximetry 12/29/20 12/29/20 12/29/20 04:15 04:30 04:45 Temperature Pulse Rate 79 79 80 Pulse Rate [ From Monitor] Respiratory 24 Rate Blood Pressure 92/51 93/48 98/46 O2 Sat by Pulse 97 98 97 Oximetry 12/29/20 12/29/20 12/29/20 05:00 05:15 05:30 Temperature Pulse Rate 79 79 79 Pulse Rate [ From Monitor] Respiratory 24 Rate Blood Pressure 92/47 93/46 93/46 O2 Sat by Pulse 96 96 97 Oximetry 12/29/20 12/29/20 12/29/20 05:45 06:01 06:15 Temperature Pulse Rate 82 82 83 Pulse Rate [ From Monitor] Respiratory 22 Rate Blood Pressure 90/47 93/44 93/44 O2 Sat by Pulse 95 99 94 Oximetry 12/29/20 12/29/20 12/29/20 06:30 06:45 07:00 Temperature 97.6 F Pulse Rate 84 85 87 Pulse Rate [ From Monitor] Respiratory 22 Rate Blood Pressure 99/48 101/45 99/54 O2 Sat by Pulse 96 96 95 Oximetry 12/29/20 12/29/20 12/29/20 08:00 10:06 10:15 Temperature Pulse Rate 110 H 107 H Pulse Rate [ 82 From Monitor] Respiratory 15 20 Rate Blood Pressure 124/75 114/66 O2 Sat by Pulse 99 90 92 Oximetry - Lab 12/29/20 05:20 12/29/20 05:20 Most recent lab results ABG pH 7.301 (7.320-7.450) L 12/29/20 03:08 ABG pCO2 51.0 mm Hg 12/20/20 21:30 ABG pO2 104.4 mm Hg (80.0-90.0) H 12/20/20 21:30 ABG HCO3 25.3 mmol/L (20.0-26.0) 12/20/20 21:30 ABG O2 Saturation 99.1 (0-100) 12/29/20 03:08 Calcium 5.5 mg/dL (8.4-10.2) L* 12/29/20 05:20 Phosphorus 5.70 mg/dL (2.5-4.5) H 12/29/20 05:20 Magnesium 1.60 mg/dL (1.7-2.3) L 12/29/20 05:20 Urine Creatinine 78.1 mg/dL (0.1-20.0) H 12/23/20 12:15 Urine Sodium 13 mmol/L 12/23/20 12:15 Medications & Allergies - Medications Allergies/Adverse Reactions: Allergies Iodinated Contrast Media Adverse Reaction (Verified 09/04/18 14:20) Unknown Home Medications: Home Medications Medication Instructions Recorded Confirmed Last Taken Type Aspirin 81 mg PO DAILY #30 tab.chew 09/08/18 09/12/20 03/31/20 09:28 Rx AtorvaSTATin [Lipitor] 80 mg PO QHS tablet 05/08/19 09/12/20 03/28/20 Rx Albuterol Sulfate [Proventil Hfa] 13.4 gm IH Q6H #1 hfa.aer.ad 04/01/20 09/12/20 Unknown Rx Clopidogrel [Plavix] 75 mg PO DAILY #30 tablet 04/01/20 09/12/20 Unknown Rx Gabapentin 300 mg PO BID@0700,1800 30 Days 04/01/20 09/12/20 Unknown Rx capsule Gabapentin 600 mg PO QHS 30 Days capsule 04/01/20 09/12/20 Unknown Rx Metoprolol [Lopressor TAB] 25 mg PO BID #60 tablet 04/01/20 09/12/20 Unknown Rx [place]-3/Dha/Epa/Fish Oil [[place] 3 1 each PO BID #60 capsule 04/01/20 09/12/20 Unknown Rx 500 Softgel] Tiotropium [place] [Spiriva] 2 puff IH DAILY #30 cap.w.dev 04/01/20 09/12/20 Unknown Rx Ubidecarenone [Co Q-10] 10 mg PO BID #60 tab 04/01/20 09/12/20 03/29/20 Rx cilostazoL [Pletal] 50 mg PO BID 30 Days tablet 04/01/20 09/12/20 Unknown Rx oxyCODONE /ACETAMINOPHEN [Percocet 2 tab PO Q6H PRN tablet 04/01/20 09/12/20 Unknown Rx 5/325 mg] Phosphorus #1 [K-Phos Neutral] 250 mg PO QID 2 Days #8 tablet 09/14/20 Unknown Rx Active Medications: Generic Name Dose Route Start Last Admin Trade Name Freq PRN Reason Stop Dose Admin Acetaminophen 650 mg 12/21/20 11:51 12/25/20 20:35 Acetaminophen 650 Mg Rect Supp [place] 650 mg Q4H PRN Administration TEMP >/=100.4 Dextrose 50 ml 12/24/20 10:49 Dextrose 50% In Water (25gm) 50 Ml Syringe IV Q30MIN PRN Hypoglycemia Protocol Famotidine 20 mg 12/26/20 10:00 12/29/20 10:28 Famotidine 20 Mg/2 Ml Inj IV 20 mg DAILY ASCENCION Administration Fentanyl 50 mcg 12/20/20 21:58 12/21/20 03:46 Fentanyl 100 Mcg/2 Ml Inj IV 50 mcg Q10MIN PRN Administration ANALGESIA Hydrophilic Ointment 1 applic 12/20/20 21:58 Lip Therapy Vaseline TP Q2HR PRN Dry Lips Fentanyl Citrate 2,000 mcg in 100 mls @ 6.01 mls/hr 12/20/20 22:00 12/29/20 10:24 Fentanyl Drip Premix IV 3 mcg/kg/hr TITR ASCENCION 18.03 mls/hr Administration Protocol 1 MCG/KG/HR Propofol 1,000 mg in 100 mls @ 3.606 mls/hr 12/20/20 22:00 12/29/20 06:06 Diprivan 10 Mg/Ml IV 25 mcg/kg/min TITR ASCENCION 18.03 mls/hr Administration Protocol 5 MCG/KG/MIN NORepinephrine/NS 8 MG-250 ML 8 mg in 250 mls @ 3.75 mls/hr 12/21/20 09:00 12/29/20 00:00 Norepinephrine/Ns 8 Mg-250 Ml (Double Conc) IV 2 mcg/min TITRATE ASCENCION 3.75 mls/hr Titration Protocol 2 MCG/MIN Vasopressin 20 unit/ Sodium 101 mls @ 9.09 mls/hr 12/24/20 09:00 12/29/20 10:51 Chloride IV 0.03 units/min TITR ASCENCION 9.09 mls/hr Administration Protocol 0.03 UNITS/MIN Piperacillin Sod/Tazobactam Sod 4.5 gm in 100 mls @ 200 mls/hr 12/26/20 18:00 12/29/20 06:35 Zosyn/Ns 4.5gm/100ml IV Infused Q12H ASCENC[facility] Infusion Protocol Fluconazole 200 mg in 100 mls @ 100 mls/hr 12/26/20 10:00 12/29/20 10:28 Diflucan IV 100 mls/hr Q24H ASCENCION Administration Protocol Amino Acids/Electrolytes/Dextrose 2,400 mls @ 100 mls/hr 12/28/20 20:00 12/28/20 20:29 Tpn Adult IV 12/29/20 19:59 100 mls/hr DAILY@2000 [facility] Administration Protocol Sodium Chloride 1,000 mls @ 100 mls/hr 12/29/20 11:15 Nacl 0.9% 1000 Ml IV DIRECT ASCENCION Insulin Human Regular 0 units 12/28/20 00:00 12/29/20 06:51 Insulin Regular, Human 100 Units/1 Ml SUB-Q Not Given Q6H [facility] Protocol Multi-Ingred Cream/Lotion/Oil/Oint 1 applic 12/20/20 21:58 Mineral Oil/Petrolatum, White Ophth Oint 3.5 Gm OU Q4HR PRN Dry Eye(s) Sodium Chloride 10 ml 12/20/20 22:00 12/29/20 10:25 Sodium Chloride 0.9% 10 Ml Flush Syringe IV 10 ml BID ASCENCION Administration Sodium Chloride 10 ml 12/20/20 16:42 Sodium Chloride 0.9% 10 Ml Flush Syringe IV PRN PRN LINE FLUSH
[2020-12-29] MEDS: SODIUM CHLORIDE 0.9% 1000 ML 1,000 ML IV SCH ×2 (14:09→23:41)
[2020-12-29] MEDS ORDERED: TOTAL PARENTERAL NUTRITION 2,400 ML IV SCH (20:00)
[2020-12-29] MEDS: NORepinephrine/NS 8 MG-250 ML 8 MG/250 ML INFUS..BTL IV SCH (20:39)
[2020-12-30] MEDS: fentaNYL DRIP Premix 2,000 MCG/100 ML BAG IV SCH ×6 (02:20→21:54)
[2020-12-30] MEDS: INSULIN REGULAR, HUMAN 100 UNITS/1 ML SUB-Q SCH ×5 (06:11→23:10)
[2020-12-30] MEDS: PIPERACIL/TAZOBACTA 4.5/NS 100 4.5 GM/100 ML VIAL IV SCH ×2 (06:11→17:41)
[2020-12-30] MEDS: VASOPRESSIN 20 UNIT in SODIUM CHLORIDE 0.9% 100 ML IV SCH ×2 (08:11→18:47)
[2020-12-30] MEDS: SODIUM CHLORIDE 0.9% 1000 ML 1,000 ML IV SCH ×2 (08:13→21:27)
[2020-12-30 08:31] LABS: Calcium 6.2 mg/dL (8.4-10.2)
[2020-12-30] MEDS: FAMOTIDINE 20 MG/2 ML INJ IV SCH (09:17)
[2020-12-30] MEDS: FLUCONAZOLE 200 MG 200 MG/100 ML BAG IV SCH (09:18)
--- NOTE | 2020-12-30 10:20 | Progress Note ---
Assessment and Plan Assessment and plan: This is a 60-year-old male with obesity, hypertension, nicotine dependence, PVD s/p stent placement on dual antiplatelet therapy, hyperlipidemia, OA, GERD, ventral hernia and small bowel obstruction who was admitted with small bowel obstruction and peritonitis Septic Shock, POA (presented with leukocytosis, tachycardia, tachypnea,febrile and evidence of peritonitis) COVID-19 PUI, ruled out Small bowel obstruction with peritonitis Ventral hernia Leukocytosis Hypernatremia Hypercholremia Hypocalcemia Acute Kidney Injury Obesity Hypertension Nicotine dependence CAD s/p stent placement Hyperlipidemia Osteoarthritis GERD History Interval history: This is a 60-year-old male with obesity, hypertension, nicotine dependence, PVD s/p stent placement on dual antiplatelet therapy, hyperlipidemia, OA, GERD, ventral hernia with SBO who presents to the emergency department on 12/20 with severe, diffuse, worsened with movement, slightly relieved with rest abdominal pain rated at 10/10 with decreased oral intake, nausea and multiple episodes of vomiting. Patient underwent a CT of his abdomen/pelvis and was found to have evidence of small bowel obstruction as well as clinical findings consistent with acute peritonitis. Patient was admitted to the hospital service with acute peritonitis and incarcerated ventral hernia with consults to [facility] and surgery. 12/21: Patient is status post ex lap, extensive lysis of adhesions, small bowel resection, peritoneal lavage and ABThera abdominal wound VAC placement by Dr. Tena and Dr. Brumfield on 12/20 with removal of a 70 cm segment of necrotic small bowel. Patient was intubated and sedated on propofol 10/ 4 at the time of my examination on Assist-control, rate of 24, PEEP of 6, tidal volume of 550 and FiO2 35%. Patient needed to be deeply sedated and there was a became hypotensive. Patient was started on patient for support with Levophed and received bolus of IVF. 12/22: Patient was febrile to 103 and vancomycin and Diflucan were added by [facility] and infectious disease was consulted and they increased Zosyn and stop vancomycin. Patient was given additional 1 L bolus today for CVP goal of 10-12. At the time of examination patient was on Levophed, propofol and fentanyl CMV tidal volume 500, rate of 24, PEEP of 6 and FiO2 65%. Plan for OR tomorrow 12/23: Patient Cr/BUN noted to be increased and nephrology was consulted. ID decreased the zosyn dose d/r renal function. Urine studies ordered. [place] placed today. LR boluses per [facility], TPN to be started. Fractional excretion of sodium calculated at 0.16 indicating prerenal state 12/24: Patient is status post abdominal exploration, small bowel resection of 4 to 5 cm segment of dusky small bowel, peritoneal lavage and ABThera wound VAC placement on 12/23 with surgery, leukocytosis and renal function is improving, worsening hypernatremia and hyperchloremia. Patient will be started on TPN today. We will place on SSI/Accu-Cheks every every 6 hours. Patient noted to be nearly maxed on Levophed and vasopressin was ordered. Remains sedated and on MV 12/25: Leukocytosis continues to improve, given Ca Gluconate today, Hypernatremia, Cr and hyperchorlemia slightly worsened today. Patient is sedated with propofol and fentanyl on CMV TV 500, Rate 24, Peep 6, FiO2 50%. He remains on levophed. Possible OR Saturday. 12/28: Patient is orally intubated with AC mode ventilation rate 24, tidal volume 500, FiO2 75% and PEEP of 6. POD#8 s/p ex lap and small bowel resection for necrotic bowel secondary to incarcerated ventral hernia left with open abdomen. POD#5 s/p abdominal exploration with segmental small bowel resection. abthera placement POD#2 s/p abdominal exploration, small bowel resection for ischemia, abthera placement -[facility], surgery, infectious disease, nephrology consulted, appreciate recommendations -IV abx per ID: Zosyn, fluconazole -NGT to LIWS -NPO for now, TPN -SSI, Accucheck q6 -Vasopressor support with levophed -On mechanical ventilation, wean as tolerated, VAP bundle -Sedated with propofol and analgesia with fentanyl drip -Trend CBC, BMP, Mg, Phos -GI/DVT prophylaxis: PPI, SCDs to bilateral lower extremities while in bed, avoid chemical anticoagulation to cleared by surgery 12/29: Patient underwent abdominal exploration, small bowel resection, small bowel anastomosis and ABThera wound VAC placement this a.m. Patient remains on AC mode ventilation with a rate of 24, tidal volume 500, FiO2 65% and PEEP of 6. Continue antibiotics per ID recommendations. Continue vasopressor support as needed. Continue TPN for nutritional support. 12/30: Patient currently with AC mode ventilation rate of 24, tidal volume 500, FiO2 60% and PEEP of 6. Patient underwent further surgery yesterday with anothe r abdominal exploration, small bowel resection, small bowel anastomosis and replacement of the ABThera wound VAC. Patient continues to require vasopressor support with vasopressin and Levophed. Continue TPN for nutrition. Continue propofol and fentanyl for sedation. Continue Zosyn per ID recommendations The high probability of a clinically significant, sudden or life threatening deterioration of the [multi] system(s) required my full and direct attention, intervention and personal management. The aggregate critical care time was [32] minutes. This time is in addition to time spent performing re continue sedation with propofol and fentanyl as needed. Ported procedures but includes the following: [x] Data Review and interpretation [x] Patient assessment and monitoring of vital signs [x] Documentation [x] Medication orders and management History Interval history: This is a 60-year-old male with obesity, hypertension, nicotine dependence, PVD s/p stent placement on dual antiplatelet therapy, hyperlipidemia, OA, GERD, ventral hernia with SBO who presents to the emergency department on 12/20 with severe, diffuse, worsened with movement, slightly relieved with rest abdominal pain rated at 10/10 with decreased oral intake, nausea and multiple episodes of vomiting. Patient underwent a CT of his abdomen/pelvis and was found to have evidence of small bowel obstruction as well as clinical findings consistent with acute peritonitis. Patient was admitted to the hospital service with acute peritonitis and incarcerated ventral hernia with consults to [facility] and surgery. No new issues overnight. Hospitalist Physical - Constitutional Vitals: Temp Pulse Resp BP Pulse Ox 98.3 F 100 H 21 97/58 93 12/30/20 07:00 12/30/20 09:00 12/30/20 09:00 12/30/20 09:00 12/30/20 09:00 General appearance: Present: no acute distress, well-nourished - EENT Eyes: Present: PERRL, EOM intact ENT: hearing intact, clear oral mucosa, dentition normal - Neck Neck: Present: supple, normal ROM - Respiratory Respiratory effort: normal Respiratory: bilateral: CTA - Cardiovascular Rhythm: regular Heart Sounds: Present: S1 & S2. Absent: gallop, rub - Extremities Extremities: no ischemia, No edema, Full ROM - Abdominal General gastrointestinal: soft, non-tender, non-distended, normal bowel sounds - Integumentary Integumentary: Present: clear, warm, dry - Neurologic Neurologic: CNII-XII intact, moves all extremities HEART Score - HEART Score Troponin: Troponin T < 0.010 ng/mL (0.00-0.029) 12/20/20 13:58 Results - Labs CBC & Chem 7: 12/29/20 05:20 12/30/20 08:06 Labs: Laboratory Last Values WBC 21.0 K/mm3 (4.5-11.0) H 12/29/20 05:20 RBC 2.89 M/mm3 (3.65-5.03) L 12/29/20 05:20 Hgb 8.1 gm/dl (11.8-15.2) L 12/29/20 05:20 Hct 25.5 % (35.5-45.6) L 12/29/20 05:20 MCV 88 fl (84-94) 12/29/20 05:20 MCH 28 pg (28-32) 12/29/20 05:20 MCHC 32 % (32-34) 12/29/20 05:20 RDW 16.1 % (13.2-15.2) H 12/29/20 05:20 Plt Count 124 K/mm3 (140-440) L 12/29/20 05:20 Add Manual Diff Complete 12/28/20 07:28 Total Counted 100 12/28/20 07:28 Seg Neutrophils % Spray Gun Repairer 12/28/20 07:28 Seg Neuts % (Manual) 95.0 % (40.0-70.0) H 12/28/20 07:28 Band Neutrophils % 1.0 % 12/28/20 07:28 Lymphocytes % (Manual) 3.0 % (13.4-35.0) L 12/21/20 08:14 Monocytes % (Manual) 4.0 % (0.0-7.3) 12/28/20 07:28 Nucleated RBC % Not Reportable 12/28/20 07:28 Seg Neutrophils # Man 25.8 K/mm3 (1.8-7.7) H 12/28/20 07:28 Band Neutrophils # 0.3 K/mm3 12/28/20 07:28 Lymphocytes # (Manual) 0.0 K/mm3 (1.2-5.4) L 12/28/20 07:28 Abs React Lymphs (Man) 0.0 K/mm3 12/28/20 07:28 Monocytes # (Manual) 1.1 K/mm3 (0.0-0.8) H 12/28/20 07:28 Eosinophils # (Manual) 0.0 K/mm3 (0.0-0.4) 12/28/20 07:28 Basophils # (Manual) 0.0 K/mm3 (0.0-0.1) 12/28/20 07:28 Metamyelocytes # 0.0 K/mm3 12/28/20 07:28 Myelocytes # 0.0 K/mm3 12/28/20 07:28 Promyelocytes # 0.0 K/mm3 12/28/20 07:28 Blast Cells # 0.0 K/mm3 12/28/20 07:28 WBC Morphology Not Reportable 12/28/20 07:28 Hypersegmented Neuts Not Reportable 12/28/20 07:28 Hyposegmented Neuts Not Reportable 12/28/20 07:28 Hypogranular Neuts Not Reportable 12/28/20 07:28 Smudge Cells Not Reportable 12/28/20 07:28 Toxic Granulation Not Reportable 12/28/20 07:28 Toxic Vacuolation Not Reportable 12/28/20 07:28 Dohle Bodies Not Reportable 12/28/20 07:28 Pelger-Huet Anomaly Not Reportable 12/28/20 07:28 Mirian Rods Not Reportable 12/28/20 07:28 Platelet Estimate Consistent w auto 12/28/20 07:28 Clumped Platelets Not Reportable 12/28/20 07:28 Plt Clumps, EDTA Not Reportable 12/28/20 07:28 Large Platelets Not Reportable 12/28/20 07:28 Giant Platelets Not Reportable 12/28/20 07:28 Platelet Satelliting Not Reportable 12/28/20 07:28 Plt Morphology Comment Not Reportable 12/28/20 07:28 RBC Morphology Not Reportable 12/28/20 07:28 Dimorphic RBCs Not Reportable 12/28/20 07:28 Polychromasia Not Reportable 12/28/20 07:28 Hypochromasia Few 12/28/20 07:28 Poikilocytosis Not Reportable 12/28/20 07:28 Anisocytosis Few 12/28/20 07:28 Microcytosis Not Reportable 12/28/20 07:28 Macrocytosis Not Reportable 12/28/20 07:28 Spherocytes Not Reportable 12/28/20 07:28 Pappenheimer Bodies Not Reportable 12/28/20 07:28 Sickle Cells Not Reportable 12/28/20 07:28 Target Cells Not Reportable 12/28/20 07:28 Tear Drop Cells Not Reportable 12/28/20 07:28 Ovalocytes Not Reportable 12/28/20 07:28 Helmet Cells Not Reportable 12/28/20 07:28 [place] Bodies Not Reportable 12/28/20 07:28 [place] Rings Not Reportable 12/28/20 07:28 [place] Cells Not Reportable 12/28/20 07:28 Bite Cells Not Reportable 12/28/20 07:28 Crenated Cell Not Reportable 12/28/20 07:28 Elliptocytes Not Reportable 12/28/20 07:28 Acanthocytes (Spur) Not Reportable 12/28/20 07:28 Rouleaux Not Reportable 12/28/20 07:28 Hemoglobin C Crystals Not Reportable 12/28/20 07:28 Schistocytes Not Reportable 12/28/20 07:28 Malaria parasites Not Reportable 12/28/20 07:28 Dylon Bodies Not Reportable 12/28/20 07:28 Hem Pathologist Commnt No 12/28/20 07:28 APTT 49.4 Sec. (24.2-36.6) H 12/20/20 13:58 ABG pH 7.261 (7.320-7.450) L 12/30/20 03:31 POC ABG pCO2 39.2 mmHg (32.0-48.0) 12/30/20 03:31 ABG pCO2 51.0 mm Hg 12/20/20 21:30 POC ABG pO2 123.1 mmHg (83-108) H 12/30/20 03:31 ABG pO2 104.4 mm Hg (80.0-90.0) H 12/20/20 21:30 POC ABG HCO3 17.2 12/30/20 03:31 ABG HCO3 25.3 mmol/L (20.0-26.0) 12/20/20 21:30 ABG O2 Saturation 98.0 (0-100) 12/30/20 03:31 ABG O2 Content 20.3 (0.0-44) 12/20/20 21:30 POC ABG Base Excess -9.1 12/30/20 03:31 ABG Base Excess -1.7 mmol/L (-2.0-3.0) 12/20/20 21:30 ABG Hemoglobin 8.7 (12.0-17.5) L 12/30/20 03:31 ABG Oxyhemoglobin 96.9 (94-98) 12/30/20 03:31 ABG Carboxyhemoglobin 1.3 % (0.0-5.0) 12/20/20 21:30 ABG Methemoglobin 0.3 (0.0-1.5) 12/30/20 03:31 ABG Sodium 123.2 mmol/L (136.0-145.0) L 12/30/20 03:31 ABG Potassium 3.8 mmol/L (3.40-4.50) 12/30/20 03:31 ABG Chloride 96.0 mmol/L (98-107) L 12/30/20 03:31 ABG Glucose 112 mg/dL (65-95) H 12/30/20 03:31 Oxyhemoglobin 95.2 % (95.0-99.0) 12/20/20 21:30 Carboxyhemoglobin 0.8 (0.5-1.5) 12/30/20 03:31 FiO2 100 % 12/20/20 21:30 FiO2 % 70.0 12/30/20 03:31 Sodium 128 mmol/L (137-145) L 12/30/20 08:06 Potassium 4.2 mmol/L (3.6-5.0) 12/30/20 08:06 Chloride 90.7 mmol/L (98-107) L 12/30/20 08:06 Carbon Dioxide 21 mmol/L (22-30) L 12/30/20 08:06 Anion Gap 21 mmol/L 12/30/20 08:06 BUN 86 mg/dL (9-20) H 12/30/20 08:06 Creatinine 4.9 mg/dL (0.8-1.3) H 12/30/20 08:06 Estimated GFR 12 ml/min 12/30/20 08:06 BUN/Creatinine Ratio 18 % 12/30/20 08:06 Glucose 107 mg/dL (75-100) H 12/30/20 08:06 POC Glucose 96 mg/dL (70-105) 12/30/20 05:31 Lactic Acid 1.70 mmol/L (0.7-2.0) 12/20/20 16:20 Calcium 6.2 mg/dL (8.4-10.2) L 12/30/20 08:06 Ionized Calcium 4.1 mg/dL (4.8-5.6) L 12/21/20 21:28 Phosphorus 5.30 mg/dL (2.5-4.5) H 12/30/20 08:06 Magnesium 1.50 mg/dL (1.7-2.3) L 12/30/20 08:06 Total Bilirubin 0.50 mg/dL (0.1-1.2) 12/28/20 07:28 AST 144 units/L (5-40) H 12/28/20 07:28 ALT 33 units/L (7-56) 12/28/20 07:28 Alkaline Phosphatase 90 units/L (35-129) 12/28/20 07:28 Troponin T < 0.010 ng/mL (0.00-0.029) 12/20/20 13:58 Total Protein 4.8 g/dL (6.3-8.2) L 12/28/20 07:28 Albumin 1.3 g/dL (3.9-5) L 12/28/20 07:28 Albumin/Globulin Ratio 0.4 % 12/28/20 07:28 Triglycerides 164 mg/dL (2-149) H 12/27/20 04:15 Arterial Blood Glucose 112 mg/dL (65-95) H 12/30/20 03:31 Arterial Blood Ionized Calcium 3.2 mg/dL (4.6-5.3) L 12/30/20 03:31 Urine Color Yellow (Yellow) 12/23/20 12:15 Urine Turbidity Cloudy (Clear) 12/23/20 12:15 Urine pH 5.0 (5.0-7.0) 12/23/20 12:15 Ur Specific [place] 1.019 (1.003-1.030) 12/23/20 12:15 Urine Protein <15 mg/dl mg/dL (Negative) 12/23/20 12:15 Urine Glucose (UA) Neg mg/dL (Negative) 12/23/20 12:15 Urine Ketones Neg mg/dL (Negative) 12/23/20 12:15 Urine Blood Sm (Negative) 12/23/20 12:15 Urine Nitrite Neg (Negative) 12/23/20 12:15 Urine Bilirubin Neg (Negative) 12/23/20 12:15 Urine Urobilinogen < 2.0 mg/dL (<2.0) 12/23/20 12:15 Ur Leukocyte Esterase Neg (Negative) 12/23/20 12:15 Urine WBC (Auto) 5.0 /HPF (0.0-6.0) 12/23/20 12:15 Urine RBC (Auto) 2.0 /HPF (0.0-6.0) 12/23/20 12:15 U Epithel Cells (Auto) < 1.0 /HPF (0-13.0) 12/20/20 Unknown Urine Bacteria (Auto) 1+ /HPF (Negative) 12/23/20 12:15 Triple Phos Crystals 2+ 12/23/20 12:15 Hyaline Casts 19 /LPF 12/20/20 Unknown Urine Mucus Few /HPF 12/23/20 12:15 Urine Eosinophils None seen (None Seen) 12/23/20 12:15 Urine Creatinine 78.1 mg/dL (0.1-20.0) H 12/23/20 12:15 Urine Sodium 13 mmol/L 12/23/20 12:15 Fraction Sodium Excret 0.2 12/23/20 12:15 Random Vancomycin 7.9 ug/mL (0-40.0) 12/23/20 12:15 Coronavirus (PCR) Negative (Negative) 12/21/20 Unknown Blood Type A NEGATIVE 12/29/20 05:20 Antibody Screen Negative 12/29/20 05:20 Lawrence/IV: Voiding Method Indwelling Catheter Active Medications - Current Medications Current Medications: Generic Name Dose Route Start Last Admin Trade Name Freq PRN Reason Stop Dose Admin Acetaminophen 650 mg 12/21/20 11:51 12/25/20 20:35 Acetaminophen 650 Mg Rect Supp TX 650 mg Q4H PRN Administration TEMP >/=100.4 Bisacodyl 10 mg 12/30/20 11:00 Bisacodyl 10 Mg Rect Supp TX QDAY ASCENCION Dextrose 50 ml 12/24/20 10:49 Dextrose 50% In Water (25gm) 50 Ml Syringe IV Q30MIN PRN Hypoglycemia Protocol Famotidine 20 mg 12/26/20 10:00 12/30/20 09:17 Famotidine 20 Mg/2 Ml Inj IV 20 mg DAILY ASCENCION Administration Fentanyl 50 mcg 12/20/20 21:58 12/21/20 03:46 Fentanyl 100 Mcg/2 Ml Inj IV 50 mcg Q10MIN PRN Administration ANALGESIA Hydrophilic Ointment 1 applic 12/20/20 21:58 Lip Therapy Vaseline TP Q2HR PRN Dry Lips Fentanyl Citrate 2,000 mcg in 100 mls @ 6.01 mls/hr 12/20/20 22:00 12/30/20 06:10 Fentanyl Drip Premix IV 4 mcg/kg/hr TITR ASCENCION 24.04 mls/hr Administration Protocol 1 MCG/KG/HR Propofol 1,000 mg in 100 mls @ 3.606 mls/hr 12/20/20 22:00 12/30/20 08:12 Diprivan 10 Mg/Ml IV 25 mcg/kg/min TITR ASCENCION 18.03 mls/hr Administration Protocol 5 MCG/KG/MIN NORepinephrine/NS 8 MG-250 ML 8 mg in 250 mls @ 3.75 mls/hr 12/21/20 09:00 12/30/20 04:00 Norepinephrine/Ns 8 Mg-250 Ml (Double Conc) IV 2 mcg/min TITRATE ASCENCION 3.75 mls/hr Titration Protocol 2 MCG/MIN Vasopressin 20 unit/ Sodium 101 mls @ 9.09 mls/hr 12/24/20 09:00 12/30/20 08:11 Chloride IV 0.03 units/min TITR ASCENCION 9.09 mls/hr Administration Protocol 0.03 UNITS/MIN Piperacillin Sod/Tazobactam Sod 4.5 gm in 100 mls @ 200 mls/hr 12/26/20 18:00 12/30/20 06:11 Zosyn/Ns 4.5gm/100ml IV 200 mls/hr Q12H ASCENCION Administration Protocol Fluconazole 200 mg in 100 mls @ 100 mls/hr 12/26/20 10:00 12/30/20 09:18 Diflucan IV 100 mls/hr Q24H ASCENCION Administration Protocol Sodium Chloride 1,000 mls @ 100 mls/hr 12/29/20 11:15 12/30/20 08:13 Nacl 0.9% 1000 Ml IV 100 mls/hr DIRECT ASCENCION Administration Amino Acids/Electrolytes/Dextrose 2,400 mls @ 100 mls/hr 12/29/20 20:00 12/29/20 20:02 Tpn Adult IV 12/30/20 19:59 100 mls/hr DAILY@2000 ASCENCION Administration Protocol Insulin Human Regular 0 units 12/28/20 00:00 12/30/20 06:11 Insulin Regular, Human 100 Units/1 Ml SUB-Q Not Given Q6H ASCENCION Protocol Multi-Ingred Cream/Lotion/Oil/Oint 1 applic 12/20/20 21:58 Mineral Oil/Petrolatum, White Ophth Oint 3.5 Gm OU Q4HR PRN Dry Eye(s) Sodium Chloride 10 ml 12/20/20 22:00 12/30/20 09:17 Sodium Chloride 0.9% 10 Ml Flush Syringe IV 10 ml BID ASCENCION Administration Sodium Chloride 10 ml 12/20/20 16:42 Sodium Chloride 0.9% 10 Ml Flush Syringe IV PRN PRN LINE FLUSH Nutrition/Malnutrition Assess - Dietary Evaluation Nutrition/Malnutrition Findings: Nutrition Notes Start: 12/21/20 09:06 Freq: Status: Active Protocol: Document 12/30/20 09:10 CW (Rec: 12/30/20 09:33 CW [id number]) Nutrition Notes Initial or Follow up Reassessment Current Diagnosis Coronary Artery Disease, Hypertension,Small Bowel Obstruction,Hyperlipidemia Other Pertinent Diagnosis gangrenous small bowel, s/p small bowel ressection, peritonitis Current Diet TPN at 100 ml/hr Labs/Tests Na 128 BUN 86 Cr 4.9 phos 5.3 Mg 1.5 Pertinent Medications NS at 100 ml/hr NaHCO3 150 mEq in D at 125 ml/ hr propofol at 18.03 ml/hr (476 kcal) vassopressin, norepinephrine, Height 6 ft Weight 143.9 kg [place] Body Weight (kg) 80.90 BMI 43.0 Weight change and time frame Wt change noted. Pt with edema Weight Status Morbidly Obese Subjective/Other Information Day 7 CPN. POC is to initiate HD per nephrology notes. Will wait on increasing protein at this time for renal functioning. Percent of energy/protein needs met: 82%/ 49% Burn Absent Trauma Absent GI Symptoms Other Current % PO Negligible Minimum of two criteria No Fluid Accumulation Mild (non-severe) #2 Nutrition Diagnosis Increased nutrient needs ( specify in comment below) Diagnosis Progress(for reassessment Continues documentation) #1 Nutrition Diagnosis Inadequate oral intake Diagnosis Progress(for reassessment Continues documentation) Is patient on ventilator? Yes Is Patient Ambulatory and/or Out of Bed No REE-([facility]-confined to bed) 2754.336 Kcal/Kg value to use for calculation 14 Approximate Energy Requirements Using 2015 kcal/Kg Calculation Used for Recommendations Kcal/kg Additional Notes Pro needs >2g/kg IBW: >162g/ day Fluid needs per MD Nutrition Intervention Change Diet Order: Continue CPN Nutrition Support: CPN at 100 ml/hr: MVI, 16.7% dextrose, Mg 10 mEq, Osmolality: 1204 Kcal 1,680 Protein (gm) 80 Carbohydrates (gm) 400 Fat (gm) 0 Fluid (mL) 2,400 Fiber (gm) 0 Goal #1 Meet needs as best as possible via CPN Anticipated Discharge Needs: Unable to determine at this time Follow-Up By: 12/31/20 Additional Comments Labs in am: BMP, Mg, Phos
--- NOTE | 2020-12-30 11:52 | Progress Note ---
Assessment and Plan Cultures: 12/20/2020 sputum culture: In process 12/20/2020 blood culture: No growth 12/20/2020 urine culture: Usual skin giorgio A/P: 60-year-old male with obesity, hypertension, tobacco abuse, coronary artery disease, admitted to the hospital on 12/20/2020 with: #Septic shock: Secondary to intra-abdominal source, peritonitis. Patient with necrotic bowel secondary to incarcerated ventral hernia. Status post exploratory laparotomy, extensive adhesiolysis, small bowel resection and peritoneal lavage along with ABThera VAC placement on 12/20/2020, replacement 12/29/2020. Remains on 2x pressors. #JONI: Renally dose antibiotics. #Morbid obesity Recs: -continue renally dosed Zosyn. -continue Fluconazole 200 mg daily -Will continue antibiotics until 5 days post his final surgery. -increase in leukocytosis likely reactive to surgery. Continue to follow. We will contiue to follow. Dr. Rizzo covering this weekend. Priscilla Marie MD [facility] ([facility]) O: [phone] F: [phone] Subjective Date of service: 12/30/20 Principal diagnosis: SBO and necrosis of large part of small intestine Interval history: Afebrile, no acute change. Remains on the vent. Had further debridement and wound vac placement yesteday. Remains on 2x pressors. Objective - Exam Narrative Exam: Physical Exam: Constitutional: sedated, intubated, on the vent Head, Ears, Nose: Normocephalic, atraumatic. External ears, nose normal Eyes: Conjunctivae/corneas clear. No icterus. No ptosis. Neck: intubated Oral: intubated Cardiovascular: S1, S2 + Respiratory: AE fair bilaterally and equal GI: Woundvac in place Musculoskeletal: No pedal edema, no cyanosis. Skin: No rash or abscess Hem/Lymphatic: No palpable cervical or supraclavicular nodes. No lymphangitis Psych: no agitation Neurological: sedated, intubated, on the vent, exam limited - Constitutional Vitals: Vital Signs Temp Pulse Resp BP Pulse Ox 98.3 F 103 H 20 115/55 91 12/30/20 07:00 12/30/20 11:45 12/30/20 11:45 12/30/20 11:45 12/30/20 11:45 Temperature -Last 24 Hours Temperature 98.3 F Temperature 98.7 F Temperature 98.2 F Temperature 98.5 F Temperature 98.3 F - Labs CBC & Chem 7: 12/29/20 05:20 12/30/20 08:06 Labs: Abnormal lab results 12/29/20 12/30/20 12/30/20 Range/Units 17:31 03:31 08:06 ABG pH 7.261 L (7.320-7.450) POC ABG pO2 123.1 H (83-108) mmHg ABG Hemoglobin 8.7 L (12.0-17.5) ABG Sodium 123.2 L (136.0-145.0) mmol/L ABG Chloride 96.0 L (98-107) mmol/L ABG Glucose 112 H (65-95) mg/dL Sodium 128 L (137-145) mmol/L Chloride 90.7 L (98-107) mmol/L Carbon Dioxide 21 L (22-30) mmol/L BUN 86 H (9-20) mg/dL Creatinine 4.9 H (0.8-1.3) mg/dL Glucose 107 H (75-100) mg/dL POC Glucose 110 H (70-105) mg/dL Calcium 6.2 L (8.4-10.2) mg/dL Phosphorus 5.30 H (2.5-4.5) mg/dL Magnesium 1.50 L (1.7-2.3) mg/dL Arterial Blood Glucose 112 H (65-95) mg/dL Arterial Blood Ionized Calcium 3.2 L (4.6-5.3) mg/dL
--- NOTE | 2020-12-30 12:07 | Progress Note ---
Assessment and Plan 60 y/o male with abdominal catastrophe, s/p ex-lap with open abdomen, ventilated for pain control and support. 12/30/20: No steroids given new anastomosis. Discussed with surgery. Continue sedation and pain control until abdomen is closed. Appears to have metabolic acidosis and some volume overload so feel he would benefit from HD today, will ask renal about this. Electrolyte imbalances should be managed by HD. Guarded to poor prognosis. 12/29/20: Continue all supportive measures. Maintain adequate sedation and pain control given open abdomen. HD per renal, catheter in place. Wean Pressors for MAPS >65. Prognosis still remains guarded to poor. 12/27/20: Agree with bicarb drip. Will go ahead and place vascath today. Will obtain consent and place, likely in groin. Back on pressors unfortunately but much lower doses. Got 3 doses of steroids on yesterday. May have helped. Will discuss with pharmacy and determine the risk benefit ration of continuing. Continue abx therapy as per ID. overall prognosis is very very guarded to poor. 12/26/20: Needs more hydration. Appreciate renal help but will bolus several l iters today as I feel the patient is very volume deplete and with persistent fever we have insensible losses as well. Continue TPN. OR today. Wean pressors for MAPs greater than 65. Follow up triglyceride level. Some hypotension is likely related to amount of sedation required to maintain rass of -4. If third agent is needed, could use precedex, ativan etc..Guarded prognosis. 12/25/20: Down to 14 on Levo now. Fluid appears to have helped. Renal following so will defer further bolus types to them but would recommend more fluid. Continue sedation at current level. TPN for nutrition. Plans for return to OR on Saturday. Continue all supportive measures. 12/24/20: Adequate sedation to maintain RASS of -4. BP support as needed with pressors. Will give more fluid today. Renal function improving. Agree with D5W but Na will be corrected in TPN as well. TPN per nutrition. Supportive care. 1. Adequate sedation to RASS of -4 2 Support BP with meds as needed 3. Aggressive hydration 4. Follow up surgery recs. cct 31 minutes. Subjective Date of service: 12/30/20 Principal diagnosis: SBO and necrosis of large part of small intestine Interval history: Bowel back together but abdomen is still open. Remains intubated and sedated. Down to levophed 2. But still on 60%. Has metabolic acidosis on ABG this am. PaO2 is better. Objective Vital Signs - 12hr 12/30/20 12/30/20 12/30/20 00:15 00:30 00:45 Temperature Pulse Rate 91 H 92 H 91 H Pulse Rate [ From Monitor] Respiratory 11 L 21 24 Rate Blood Pressure 95/52 101/52 97/50 O2 Sat by Pulse 95 98 96 Oximetry 12/30/20 12/30/20 12/30/20 01:00 01:15 01:30 Temperature Pulse Rate 90 90 91 H Pulse Rate [ From Monitor] Respiratory 22 24 21 Rate Blood Pressure 95/50 99/52 102/51 O2 Sat by Pulse 97 96 98 Oximetry 12/30/20 12/30/20 12/30/20 01:45 02:00 02:15 Temperature Pulse Rate 90 89 88 Pulse Rate [ From Monitor] Respiratory 15 24 22 Rate Blood Pressure 98/49 96/50 96/50 O2 Sat by Pulse 96 97 96 Oximetry 12/30/20 12/30/20 12/30/20 02:30 02:45 03:00 Temperature Pulse Rate 88 87 87 Pulse Rate [ From Monitor] Respiratory 22 25 H 25 H Rate Blood Pressure 94/50 97/50 93/50 O2 Sat by Pulse 97 96 96 Oximetry 12/30/20 12/30/20 12/30/20 03:12 03:15 03:30 Temperature 98.7 F Pulse Rate 87 87 Pulse Rate [ From Monitor] Respiratory 25 H 22 Rate Blood Pressure 98/49 96/49 O2 Sat by Pulse 96 96 Oximetry 12/30/20 12/30/20 12/30/20 03:45 04:00 04:15 Temperature Pulse Rate 89 87 90 Pulse Rate [ 87 From Monitor] Respiratory 22 22 20 Rate Blood Pressure 103/57 104/57 112/63 O2 Sat by Pulse 96 97 98 Oximetry 12/30/20 12/30/20 12/30/20 04:25 04:30 04:45 Temperature Pulse Rate 97 H 97 H 101 H Pulse Rate [ From Monitor] Respiratory 26 H 29 H Rate Blood Pressure 118/55 117/65 131/71 O2 Sat by Pulse 96 97 96 Oximetry 12/30/20 12/30/20 12/30/20 05:00 05:15 05:30 Temperature Pulse Rate 98 H 97 H 95 H Pulse Rate [ From Monitor] Respiratory 21 21 20 Rate Blood Pressure 118/55 114/59 95/49 O2 Sat by Pulse 98 97 Oximetry 12/30/20 12/30/20 12/30/20 05:45 06:00 06:15 Temperature Pulse Rate 93 H 94 H 93 H Pulse Rate [ From Monitor] Respiratory 20 16 25 H Rate Blood Pressure 94/49 94/50 94/50 O2 Sat by Pulse 95 95 96 Oximetry 12/30/20 12/30/20 12/30/20 06:30 06:45 07:00 Temperature 98.3 F Pulse Rate 94 H 93 H 93 H Pulse Rate [ From Monitor] Respiratory 19 15 15 Rate Blood Pressure 96/52 103/52 96/53 O2 Sat by Pulse 96 96 96 Oximetry 12/30/20 12/30/20 12/30/20 07:15 07:30 07:46 Temperature Pulse Rate 95 H 96 H 99 H Pulse Rate [ From Monitor] Respiratory 23 19 25 H Rate Blood Pressure 104/59 99/56 99/56 O2 Sat by Pulse 97 97 96 Oximetry 12/30/20 12/30/20 12/30/20 07:59 08:00 08:15 Temperature Pulse Rate 98 H 99 H 99 H Pulse Rate [ 87 From Monitor] Respiratory 18 17 Rate Blood Pressure 87/54 87/54 110/56 O2 Sat by Pulse 97 96 96 Oximetry 12/30/20 12/30/20 12/30/20 08:30 08:45 09:00 Temperature Pulse Rate 98 H 98 H 100 H Pulse Rate [ From Monitor] Respiratory 16 19 21 Rate Blood Pressure 111/52 107/53 97/58 O2 Sat by Pulse 96 95 93 Oximetry 12/30/20 12/30/20 12/30/20 09:16 09:30 09:45 Temperature Pulse Rate 107 H 104 H 104 H Pulse Rate [ From Monitor] Respiratory 30 H 23 17 Rate Blood Pressure 135/72 134/55 123/59 O2 Sat by Pulse 96 93 93 Oximetry 12/30/20 12/30/20 12/30/20 10:00 10:15 10:30 Temperature Pulse Rate 104 H 105 H 105 H Pulse Rate [ From Monitor] Respiratory 22 22 18 Rate Blood Pressure 130/59 122/59 112/53 O2 Sat by Pulse 92 93 92 Oximetry 12/30/20 12/30/20 12/30/20 10:45 11:00 11:13 Temperature Pulse Rate 107 H 107 H 107 H Pulse Rate [ From Monitor] Respiratory 20 19 Rate Blood Pressure 126/59 130/63 130/63 O2 Sat by Pulse 92 92 93 Oximetry 12/30/20 12/30/20 12/30/20 11:15 11:30 11:45 Temperature Pulse Rate 107 H 106 H 103 H Pulse Rate [ From Monitor] Respiratory 18 17 20 Rate Blood Pressure 103/61 102/57 115/55 O2 Sat by Pulse 93 91 91 Oximetry CBC and BMP: 12/29/20 05:20 12/30/20 08:06 ABG, PT/INR, D-dimer: ABG ABG pH 7.261 (7.320-7.450) L 12/30/20 03:31 POC ABG pCO2 39.2 mmHg (32.0-48.0) 12/30/20 03:31 ABG pCO2 51.0 mm Hg 12/20/20 21:30 POC ABG pO2 123.1 mmHg (83-108) H 12/30/20 03:31 ABG pO2 104.4 mm Hg (80.0-90.0) H 12/20/20 21:30 POC ABG HCO3 17.2 12/30/20 03:31 ABG O2 Saturation 98.0 (0-100) 12/30/20 03:31 Abnormal lab findings: Abnormal Labs 12/20/20 12/20/20 12/20/20 13:58 13:58 13:58 WBC 41.1 H* RBC 5.59 H Hgb 16.2 H Hct 47.7 H MCHC RDW 15.5 H Plt Count 486 H Seg Neuts % (Manual) Lymphocytes % (Manual) Seg Neutrophils # Man Lymphocytes # (Manual) Monocytes # (Manual) APTT ABG pH POC ABG pO2 ABG pO2 ABG Hemoglobin ABG Oxyhemoglobin ABG Sodium ABG Potassium ABG Chloride ABG Glucose Carboxyhemoglobin Sodium 130 L Potassium Chloride 80.7 L Carbon Dioxide BUN 37 H Creatinine Glucose 101 H POC Glucose Lactic Acid 3.20 H* Calcium Ionized Calcium Phosphorus Magnesium AST Alkaline Phosphatase 142 H Total Protein 6.2 L Albumin 2.2 L Triglycerides Arterial Blood Glucose Arterial Blood Ionized Calcium Urine Creatinine 12/20/20 12/20/20 12/20/20 13:58 20:35 21:30 WBC RBC Hgb Hct MCHC RDW Plt Count Seg Neuts % (Manual) Lymphocytes % (Manual) Seg Neutrophils # Man Lymphocytes # (Manual) Monocytes # (Manual) APTT 49.4 H ABG pH 7.313 L POC ABG pO2 ABG pO2 104.4 H ABG Hemoglobin ABG Oxyhemoglobin ABG Sodium ABG Potassium ABG Chloride ABG Glucose Carboxyhemoglobin Sodium Potassium Chloride Carbon Dioxide BUN Creatinine Glucose POC Glucose 122 H Lactic Acid Calcium Ionized Calcium Phosphorus Magnesium AST Alkaline Phosphatase Total Protein Albumin Triglycerides Arterial Blood Glucose Arterial Blood Ionized Calcium Urine Creatinine 12/21/20 12/21/20 12/21/20 03:06 08:14 08:14 WBC 23.9 H RBC Hgb Hct MCHC RDW 15.7 H Plt Count Seg Neuts % (Manual) 91.0 H Lymphocytes % (Manual) 3.0 L Seg Neutrophils # Man 21.7 H Lymphocytes # (Manual) 0.7 L Monocytes # (Manual) 1.4 H APTT ABG pH 7.464 H POC ABG pO2 202.9 H ABG pO2 ABG Hemoglobin ABG Oxyhemoglobin ABG Sodium 133.7 L ABG Potassium ABG Chloride ABG Glucose 122 H Carboxyhemoglobin Sodium Potassium Chloride Carbon Dioxide BUN 46 H Creatinine Glucose 103 H POC Glucose Lactic Acid Calcium 6.6 L D Ionized Calcium Phosphorus Magnesium AST Alkaline Phosphatase Total Protein 5.4 L Albumin 2.3 L Triglycerides Arterial Blood Glucose 122 H Arterial Blood Ionized Calcium 3.5 L Urine Creatinine 12/21/20 12/21/20 12/22/20 17:18 21:28 04:45 WBC 22.9 H RBC Hgb Hct MCHC RDW 15.7 H Plt Count Seg Neuts % (Manual) Lymphocytes % (Manual) Seg Neutrophils # Man Lymphocytes # (Manual) Monocytes # (Manual) APTT ABG pH POC ABG pO2 ABG pO2 ABG Hemoglobin ABG Oxyhemoglobin ABG Sodium ABG Potassium ABG Chloride ABG Glucose Carboxyhemoglobin Sodium Potassium Chloride Carbon Dioxide BUN Creatinine Glucose POC Glucose 108 H Lactic Acid Calcium Ionized Calcium 4.1 L Phosphorus Magnesium AST Alkaline Phosphatase Total Protein Albumin Triglycerides Arterial Blood Glucose Arterial Blood Ionized Calcium Urine Creatinine 12/22/20 12/22/20 12/22/20 04:45 05:00 11:38 WBC RBC Hgb Hct MCHC RDW Plt Count Seg Neuts % (Manual) Lymphocytes % (Manual) Seg Neutrophils # Man Lymphocytes # (Manual) Monocytes # (Manual) APTT ABG pH 7.462 H POC ABG pO2 ABG pO2 ABG Hemoglobin ABG Oxyhemoglobin ABG Sodium ABG Potassium ABG Chloride ABG Glucose 118 H Carboxyhemoglobin Sodium 146 H Potassium Chloride Carbon Dioxide BUN 45 H Creatinine Glucose 116 H POC Glucose 115 H Lactic Acid Calcium 6.9 L Ionized Calcium Phosphorus Magnesium AST Alkaline Phosphatase Total Protein Albumin Triglycerides Arterial Blood Glucose 118 H Arterial Blood Ionized Calcium 3.8 L Urine Creatinine 12/22/20 12/23/20 12/23/20 23:26 04:43 04:45 WBC 22.2 H RBC Hgb Hct MCHC RDW 16.1 H Plt Count Seg Neuts % (Manual) Lymphocytes % (Manual) Seg Neutrophils # Man Lymphocytes # (Manual) Monocytes # (Manual) APTT ABG pH POC ABG pO2 ABG pO2 ABG Hemoglobin ABG Oxyhemoglobin ABG Sodium 147.4 H ABG Potassium ABG Chloride 112.0 H ABG Glucose 130 H Carboxyhemoglobin 0.4 L Sodium Potassium Chloride Carbon Dioxide BUN Creatinine Glucose POC Glucose 110 H Lactic Acid Calcium Ionized Calcium Phosphorus Magnesium AST Alkaline Phosphatase Total Protein Albumin Triglycerides Arterial Blood Glucose 130 H Arterial Blood Ionized Calcium 3.8 L Urine Creatinine 12/23/20 12/23/20 12/23/20 04:45 05:17 11:22 WBC RBC Hgb Hct MCHC RDW Plt Count Seg Neuts % (Manual) Lymphocytes % (Manual) Seg Neutrophils # Man Lymphocytes # (Manual) Monocytes # (Manual) APTT ABG pH POC ABG pO2 ABG pO2 ABG Hemoglobin ABG Oxyhemoglobin ABG Sodium ABG Potassium ABG Chloride ABG Glucose Carboxyhemoglobin Sodium 154 H D Potassium Chloride 110.9 H Carbon Dioxide BUN 54 H Creatinine 1.8 H Glucose 115 H POC Glucose 116 H 130 H Lactic Acid Calcium 7.0 L Ionized Calcium Phosphorus Magnesium AST Alkaline Phosphatase Total Protein Albumin Triglycerides Arterial Blood Glucose Arterial Blood Ionized Calcium Urine Creatinine 12/23/20 12/23/20 12/23/20 12:15 12:15 23:15 WBC RBC Hgb Hct MCHC RDW Plt Count Seg Neuts % (Manual) Lymphocytes % (Manual) Seg Neutrophils # Man Lymphocytes # (Manual) Monocytes # (Manual) APTT ABG pH POC ABG pO2 ABG pO2 ABG Hemoglobin ABG Oxyhemoglobin ABG Sodium ABG Potassium ABG Chloride ABG Glucose Carboxyhemoglobin Sodium 154 H Potassium Chloride Carbon Dioxide BUN Creatinine 1.5 H Glucose POC Glucose 132 H Lactic Acid Calcium Ionized Calcium Phosphorus Magnesium AST Alkaline Phosphatase Total Protein Albumin Triglycerides Arterial Blood Glucose Arterial Blood Ionized Calcium Urine Creatinine 78.1 H 12/24/20 12/24/20 12/24/20 04:19 04:30 04:30 WBC 18.3 H RBC Hgb Hct MCHC RDW 16.5 H Plt Count Seg Neuts % (Manual) Lymphocytes % (Manual) Seg Neutrophils # Man Lymphocytes # (Manual) Monocytes # (Manual) APTT ABG pH POC ABG pO2 ABG pO2 ABG Hemoglobin ABG Oxyhemoglobin ABG Sodium 149.7 H ABG Potassium ABG Chloride 116.0 H ABG Glucose 180 H Carboxyhemoglobin Sodium 155 H Potassium Chloride 116.1 H Carbon Dioxide BUN 52 H Creatinine 1.5 H Glucose 175 H POC Glucose Lactic Acid Calcium 6.8 L Ionized Calcium Phosphorus Magnesium 3.00 H AST Alkaline Phosphatase Total Protein 5.7 L Albumin 1.8 L Triglycerides Arterial Blood Glucose 180 H Arterial Blood Ionized Calcium 3.7 L Urine Creatinine 12/24/20 12/24/20 12/24/20 05:24 11:21 18:05 WBC RBC Hgb Hct MCHC RDW Plt Count Seg Neuts % (Manual) Lymphocytes % (Manual) Seg Neutrophils # Man Lymphocytes # (Manual) Monocytes # (Manual) APTT ABG pH POC ABG pO2 ABG pO2 ABG Hemoglobin ABG Oxyhemoglobin ABG Sodium ABG Potassium ABG Chloride ABG Glucose Carboxyhemoglobin Sodium Potassium Chloride Carbon Dioxide BUN Creatinine Glucose POC Glucose 153 H 154 H 133 H Lactic Acid Calcium Ionized Calcium Phosphorus Magnesium AST Alkaline Phosphatase Total Protein Albumin Triglycerides Arterial Blood Glucose Arterial Blood Ionized Calcium Urine Creatinine 12/25/20 12/25/20 12/25/20 04:00 07:00 07:00 WBC 17.6 H RBC Hgb Hct MCHC 31 L RDW 16.0 H Plt Count Seg Neuts % (Manual) Lymphocytes % (Manual) Seg Neutrophils # Man Lymphocytes # (Manual) Monocytes # (Manual) APTT ABG pH POC ABG pO2 ABG pO2 ABG Hemoglobin ABG Oxyhemoglobin ABG Sodium 152.5 H ABG Potassium ABG Chloride 119.0 H ABG Glucose 136 H Carboxyhemoglobin Sodium Potassium Chloride Carbon Dioxide BUN Creatinine Glucose POC Glucose Lactic Acid Calcium Ionized Calcium Phosphorus Magnesium 2.70 H AST Alkaline Phosphatase Total Protein Albumin Triglycerides Arterial Blood Glucose 136 H Arterial Blood Ionized Calcium 3.7 L Urine Creatinine 12/25/20 12/25/20 12/25/20 07:00 11:24 16:32 WBC RBC Hgb Hct MCHC RDW Plt Count Seg Neuts % (Manual) Lymphocytes % (Manual) Seg Neutrophils # Man Lymphocytes # (Manual) Monocytes # (Manual) APTT ABG pH POC ABG pO2 ABG pO2 ABG Hemoglobin ABG Oxyhemoglobin ABG Sodium ABG Potassium ABG Chloride ABG Glucose Carboxyhemoglobin Sodium 156 H Potassium Chloride 118.0 H Carbon Dioxide BUN 44 H Creatinine 1.7 H Glucose 126 H POC Glucose 110 H 126 H Lactic Acid Calcium 6.9 L Ionized Calcium Phosphorus Magnesium AST Alkaline Phosphatase Total Protein Albumin Triglycerides Arterial Blood Glucose Arterial Blood Ionized Calcium Urine Creatinine 12/25/20 12/25/20 12/26/20 18:18 23:23 03:30 WBC RBC Hgb Hct MCHC RDW Plt Count Seg Neuts % (Manual) Lymphocytes % (Manual) Seg Neutrophils # Man Lymphocytes # (Manual) Monocytes # (Manual) APTT ABG pH POC ABG pO2 ABG pO2 ABG Hemoglobin 11.8 L ABG Oxyhemoglobin ABG Sodium ABG Potassium 4.7 H ABG Chloride 114.0 H ABG Glucose 132 H Carboxyhemoglobin Sodium 151 H Potassium Chloride 114.3 H Carbon Dioxide BUN 51 H Creatinine 2.6 H D Glucose 122 H POC Glucose 115 H Lactic Acid Calcium 6.4 L Ionized Calcium Phosphorus Magnesium AST Alkaline Phosphatase Total Protein Albumin Triglycerides Arterial Blood Glucose 132 H Arterial Blood Ionized Calcium 3.6 L Urine Creatinine 12/26/20 12/26/20 12/26/20 04:55 06:01 06:01 WBC 21.6 H RBC Hgb Hct MCHC 31 L RDW 16.5 H Plt Count 136 L Seg Neuts % (Manual) Lymphocytes % (Manual) Seg Neutrophils # Man Lymphocytes # (Manual) Monocytes # (Manual) APTT ABG pH POC ABG pO2 ABG pO2 ABG Hemoglobin ABG Oxyhemoglobin ABG Sodium ABG Potassium ABG Chloride ABG Glucose Carboxyhemoglobin Sodium 173 H* D Potassium 6.1 H* D Chloride 137.0 H Carbon Dioxide BUN 73 H Creatinine 3.8 H Glucose 125 H POC Glucose 112 H Lactic Acid Calcium 6.2 L Ionized Calcium Phosphorus 5.70 H D Magnesium 2.90 H AST Alkaline Phosphatase Total Protein Albumin Triglycerides Arterial Blood Glucose Arterial Blood Ionized Calcium Urine Creatinine 12/26/20 12/26/20 12/26/20 08:33 11:19 22:00 WBC RBC Hgb Hct MCHC RDW Plt Count Seg Neuts % (Manual) Lymphocytes % (Manual) Seg Neutrophils # Man Lymphocytes # (Manual) Monocytes # (Manual) APTT ABG pH POC ABG pO2 ABG pO2 ABG Hemoglobin ABG Oxyhemoglobin ABG Sodium ABG Potassium ABG Chloride ABG Glucose Carboxyhemoglobin Sodium 147 H D Potassium 5.8 H D Chloride 108.8 H Carbon Dioxide 21 L BUN 68 H 68 H Creatinine 3.8 H 4.1 H Glucose 144 H 154 H POC Glucose 144 H Lactic Acid Calcium 6.5 L 5.8 L* Ionized Calcium Phosphorus Magnesium AST 215 H Alkaline Phosphatase Total Protein 4.7 L Albumin 1.5 L Triglycerides Arterial Blood Glucose Arterial Blood Ionized Calcium Urine Creatinine 12/26/20 12/26/20 12/27/20 23:13 Unknown 00:25 WBC RBC Hgb 11.1 L Hct MCHC RDW Plt Count Seg Neuts % (Manual) Lymphocytes % (Manual) Seg Neutrophils # Man Lymphocytes # (Manual) Monocytes # (Manual) APTT ABG pH POC ABG pO2 ABG pO2 ABG Hemoglobin ABG Oxyhemoglobin ABG Sodium ABG Potassium ABG Chloride ABG Glucose Carboxyhemoglobin Sodium Potassium Chloride Carbon Dioxide BUN Creatinine Glucose POC Glucose 163 H Lactic Acid Calcium Ionized Calcium Phosphorus 5.60 H Magnesium AST Alkaline Phosphatase Total Protein Albumin Triglycerides Arterial Blood Glucose Arterial Blood Ionized Calcium Urine Creatinine 12/27/20 12/27/20 12/27/20 02:57 04:15 04:15 WBC 28.5 H RBC Hgb 11.2 L Hct MCHC 31 L RDW 16.5 H Plt Count 130 L Seg Neuts % (Manual) Lymphocytes % (Manual) Seg Neutrophils # Man Lymphocytes # (Manual) Monocytes # (Manual) APTT ABG pH 7.238 L POC ABG pO2 139.1 H ABG pO2 ABG Hemoglobin 11.2 L ABG Oxyhemoglobin ABG Sodium 133.8 L ABG Potassium 5.2 H ABG Chloride ABG Glucose 182 H Carboxyhemoglobin Sodium 136 L Potassium 6.0 H Chloride Carbon Dioxide 18 L BUN 68 H Creatinine 4.1 H Glucose 166 H POC Glucose Lactic Acid Calcium 6.2 L Ionized Calcium Phosphorus 7.30 H D Magnesium AST Alkaline Phosphatase Total Protein Albumin Triglycerides 164 H Arterial Blood Glucose 182 H Arterial Blood Ionized Calcium 3.4 L Urine Creatinine 12/27/20 12/27/20 12/27/20 04:50 10:51 11:17 WBC RBC Hgb Hct MCHC RDW Plt Count Seg Neuts % (Manual) Lymphocytes % (Manual) Seg Neutrophils # Man Lymphocytes # (Manual) Monocytes # (Manual) APTT ABG pH POC ABG pO2 ABG pO2 ABG Hemoglobin ABG Oxyhemoglobin ABG Sodium ABG Potassium ABG Chloride ABG Glucose Carboxyhemoglobin Sodium Potassium Chloride Carbon Dioxide BUN Creatinine Glucose POC Glucose 140 H 113 H 154 H Lactic Acid Calcium Ionized Calcium Phosphorus Magnesium AST Alkaline Phosphatase Total Protein Albumin Triglycerides Arterial Blood Glucose Arterial Blood Ionized Calcium Urine Creatinine 12/27/20 12/27/20 12/28/20 12:40 23:17 05:36 WBC RBC Hgb Hct MCHC RDW Plt Count Seg Neuts % (Manual) Lymphocytes % (Manual) Seg Neutrophils # Man Lymphocytes # (Manual) Monocytes # (Manual) APTT ABG pH POC ABG pO2 ABG pO2 ABG Hemoglobin ABG Oxyhemoglobin ABG Sodium ABG Potassium ABG Chloride ABG Glucose Carboxyhemoglobin Sodium 135 L Potassium Chloride Carbon Dioxide 21 L BUN 62 H Creatinine 3.8 H Glucose 132 H POC Glucose 130 H 128 H Lactic Acid Calcium 5.6 L* Ionized Calcium Phosphorus Magnesium AST Alkaline Phosphatase Total Protein Albumin Triglycerides Arterial Blood Glucose Arterial Blood Ionized Calcium Urine Creatinine 12/28/20 12/28/20 12/28/20 07:08 07:28 07:28 WBC 27.2 H RBC 3.50 L Hgb 9.6 L Hct 30.8 L MCHC 31 L RDW 16.1 H Plt Count 111 L Seg Neuts % (Manual) 95.0 H Lymphocytes % (Manual) Seg Neutrophils # Man 25.8 H Lymphocytes # (Manual) 0.0 L Monocytes # (Manual) 1.1 H APTT ABG pH 7.200 L POC ABG pO2 67.2 L ABG pO2 ABG Hemoglobin 10.3 L ABG Oxyhemoglobin 89.6 L ABG Sodium 127.8 L ABG Potassium 5.1 H ABG Chloride ABG Glucose 132 H Carboxyhemoglobin 0.4 L Sodium 131 L Potassium 5.9 H Chloride Carbon Dioxide 15 L BUN 70 H Creatinine 4.0 H Glucose 118 H POC Glucose Lactic Acid Calcium 6.3 L Ionized Calcium Phosphorus 7.10 H Magnesium AST 144 H Alkaline Phosphatase Total Protein 4.8 L Albumin 1.3 L Triglycerides Arterial Blood Glucose 132 H Arterial Blood Ionized Calcium 3.5 L Urine Creatinine 12/28/20 12/28/20 12/28/20 11:37 13:25 16:38 WBC RBC Hgb Hct MCHC RDW Plt Count Seg Neuts % (Manual) Lymphocytes % (Manual) Seg Neutrophils # Man Lymphocytes # (Manual) Monocytes # (Manual) APTT ABG pH POC ABG pO2 ABG pO2 ABG Hemoglobin ABG Oxyhemoglobin ABG Sodium ABG Potassium ABG Chloride ABG Glucose Carboxyhemoglobin Sodium 133 L Potassium 5.1 H Chloride 97.1 L Carbon Dioxide 21 L BUN 77 H Creatinine 4.4 H Glucose 140 H POC Glucose 135 H 140 H Lactic Acid Calcium 6.3 L Ionized Calcium Phosphorus Magnesium AST Alkaline Phosphatase Total Protein Albumin Triglycerides Arterial Blood Glucose Arterial Blood Ionized Calcium Urine Creatinine 12/28/20 12/29/20 12/29/20 23:28 03:08 05:20 WBC RBC Hgb Hct MCHC RDW Plt Count Seg Neuts % (Manual) Lymphocytes % (Manual) Seg Neutrophils # Man Lymphocytes # (Manual) Monocytes # (Manual) APTT ABG pH 7.301 L POC ABG pO2 151.1 H ABG pO2 ABG Hemoglobin 8.7 L ABG Oxyhemoglobin 98.2 H ABG Sodium 123.4 L ABG Potassium ABG Chloride 97.0 L ABG Glucose 144 H Carboxyhemoglobin Sodium 131 L Potassium Chloride 93.4 L Carbon Dioxide BUN 79 H Creatinine 4.7 H Glucose 122 H POC Glucose 134 H Lactic Acid Calcium 5.5 L* Ionized Calcium Phosphorus 5.70 H Magnesium 1.60 L AST Alkaline Phosphatase Total Protein Albumin Triglycerides Arterial Blood Glucose 144 H Arterial Blood Ionized Calcium 3.4 L Urine Creatinine 12/29/20 12/29/20 12/29/20 05:20 06:01 10:04 WBC 21.0 H RBC 2.89 L Hgb 8.1 L Hct 25.5 L MCHC RDW 16.1 H Plt Count 124 L Seg Neuts % (Manual) Lymphocytes % (Manual) Seg Neutrophils # Man Lymphocytes # (Manual) Monocytes # (Manual) APTT ABG pH POC ABG pO2 ABG pO2 ABG Hemoglobin ABG Oxyhemoglobin ABG Sodium ABG Potassium ABG Chloride ABG Glucose Carboxyhemoglobin Sodium Potassium Chloride Carbon Dioxide BUN Creatinine Glucose POC Glucose 108 H 107 H Lactic Acid Calcium Ionized Calcium Phosphorus Magnesium AST Alkaline Phosphatase Total Protein Albumin Triglycerides Arterial Blood Glucose Arterial Blood Ionized Calcium Urine Creatinine 12/29/20 12/29/20 12/30/20 11:27 17:31 03:31 WBC RBC Hgb Hct MCHC RDW Plt Count Seg Neuts % (Manual) Lymphocytes % (Manual) Seg Neutrophils # Man Lymphocytes # (Manual) Monocytes # (Manual) APTT ABG pH 7.261 L POC ABG pO2 123.1 H ABG pO2 ABG Hemoglobin 8.7 L ABG Oxyhemoglobin ABG Sodium 123.2 L ABG Potassium ABG Chloride 96.0 L ABG Glucose 112 H Carboxyhemoglobin Sodium Potassium Chloride Carbon Dioxide BUN Creatinine Glucose POC Glucose 112 H 110 H Lactic Acid Calcium Ionized Calcium Phosphorus Magnesium AST Alkaline Phosphatase Total Protein Albumin Triglycerides Arterial Blood Glucose 112 H Arterial Blood Ionized Calcium 3.2 L Urine Creatinine 12/30/20 08:06 WBC RBC Hgb Hct MCHC RDW Plt Count Seg Neuts % (Manual) Lymphocytes % (Manual) Seg Neutrophils # Man Lymphocytes # (Manual) Monocytes # (Manual) APTT ABG pH POC ABG pO2 ABG pO2 ABG Hemoglobin ABG Oxyhemoglobin ABG Sodium ABG Potassium ABG Chloride ABG Glucose Carboxyhemoglobin Sodium 128 L Potassium Chloride 90.7 L Carbon Dioxide 21 L BUN 86 H Creatinine 4.9 H Glucose 107 H POC Glucose Lactic Acid Calcium 6.2 L Ionized Calcium Phosphorus 5.30 H Magnesium 1.50 L AST Alkaline Phosphatase Total Protein Albumin Triglycerides Arterial Blood Glucose Arterial Blood Ionized Calcium Urine Creatinine
[2020-12-30] MEDS ORDERED: SODIUM CHLORIDE 0.9% 100 ML IV PRN (13:00)
[2020-12-30 15:27] LABS: Hepatitis B Surface Antigen Non-Reactive (Negative); Hepatitis C Virus Antibody Non-Reactive (NonReactive)
--- NOTE | 2020-12-30 16:16 | Progress Note ---
Assessment and Plan POD#11 s/p ex lap and small bowel resection for necrotic bowel secondary to incarcerated ventral hernia left with open abdomen. POD#8 s/p abdominal exploration with segmental small bowel resection. abthera placement POD#4 s/p abdominal exploration, small bowel resection for ischemia, abthera placement POD#1 s/p abdominal exploration with small bowel anastamosis and abthera vac placement Tachycardia resolved, requiring less pressors compared to a few days ago, leukocytosis improved slightly. Septic with renal insufficiency requiring dialysis. Continue supportive care, since abdomen is open, will take to OR in two days for abdominal wash out and bowel examination. If anastamosis looks viable and no other issues plan to close his abdomen. Prognosis is guarded. Subjective Date of service: 12/30/20 Narrative: no acute events overnight. Pt on dialysis at time of evaluation. Objective Vital Signs - 12hr 12/30/20 12/30/20 12/30/20 04:15 04:25 04:30 Temperature Pulse Rate 90 97 H 97 H Pulse Rate [ From Monitor] Respiratory 20 26 H Rate Blood Pressure 112/63 118/55 117/65 O2 Sat by Pulse 98 96 97 Oximetry O2 Sat by Pulse Oximetry [ Anterior Bilateral Throughout] 12/30/20 12/30/20 12/30/20 04:45 05:00 05:15 Temperature Pulse Rate 101 H 98 H 97 H Pulse Rate [ From Monitor] Respiratory 29 H 21 21 Rate Blood Pressure 131/71 118/55 114/59 O2 Sat by Pulse 96 98 97 Oximetry O2 Sat by Pulse Oximetry [ Anterior Bilateral Throughout] 12/30/20 12/30/20 12/30/20 05:30 05:45 06:00 Temperature Pulse Rate 95 H 93 H 94 H Pulse Rate [ From Monitor] Respiratory 20 20 16 Rate Blood Pressure 95/49 94/49 94/50 O2 Sat by Pulse 95 95 Oximetry O2 Sat by Pulse Oximetry [ Anterior Bilateral Throughout] 12/30/20 12/30/20 12/30/20 06:15 06:30 06:45 Temperature Pulse Rate 93 H 94 H 93 H Pulse Rate [ From Monitor] Respiratory 25 H 19 15 Rate Blood Pressure 94/50 96/52 103/52 O2 Sat by Pulse 96 96 96 Oximetry O2 Sat by Pulse Oximetry [ Anterior Bilateral Throughout] 12/30/20 12/30/20 12/30/20 07:00 07:15 07:30 Temperature 98.3 F Pulse Rate 93 H 95 H 96 H Pulse Rate [ From Monitor] Respiratory 15 23 19 Rate Blood Pressure 96/53 104/59 99/56 O2 Sat by Pulse 96 97 97 Oximetry O2 Sat by Pulse Oximetry [ Anterior Bilateral Throughout] 12/30/20 12/30/20 12/30/20 07:46 07:59 08:00 Temperature Pulse Rate 99 H 98 H 99 H Pulse Rate [ 87 From Monitor] Respiratory 25 H 18 Rate Blood Pressure 99/56 87/54 87/54 O2 Sat by Pulse 96 97 96 Oximetry O2 Sat by Pulse Oximetry [ Anterior Bilateral Throughout] 12/30/20 12/30/20 12/30/20 08:15 08:30 08:45 Temperature Pulse Rate 99 H 98 H 98 H Pulse Rate [ From Monitor] Respiratory 17 16 19 Rate Blood Pressure 110/56 111/52 107/53 O2 Sat by Pulse 96 96 95 Oximetry O2 Sat by Pulse Oximetry [ Anterior Bilateral Throughout] 12/30/20 12/30/20 12/30/20 09:00 09:16 09:30 Temperature Pulse Rate 100 H 107 H 104 H Pulse Rate [ From Monitor] Respiratory 21 30 H 23 Rate Blood Pressure 97/58 135/72 134/55 O2 Sat by Pulse 93 96 93 Oximetry O2 Sat by Pulse Oximetry [ Anterior Bilateral Throughout] 12/30/20 12/30/20 12/30/20 09:45 10:00 10:15 Temperature Pulse Rate 104 H 104 H 105 H Pulse Rate [ From Monitor] Respiratory 17 22 22 Rate Blood Pressure 123/59 130/59 122/59 O2 Sat by Pulse 93 92 93 Oximetry O2 Sat by Pulse Oximetry [ Anterior Bilateral Throughout] 12/30/20 12/30/20 12/30/20 10:30 10:45 11:00 Temperature Pulse Rate 105 H 107 H 107 H Pulse Rate [ From Monitor] Respiratory 18 20 19 Rate Blood Pressure 112/53 126/59 130/63 O2 Sat by Pulse 92 92 92 Oximetry O2 Sat by Pulse Oximetry [ Anterior Bilateral Throughout] 12/30/20 12/30/20 12/30/20 11:13 11:15 11:30 Temperature Pulse Rate 107 H 107 H 106 H Pulse Rate [ From Monitor] Respiratory 18 17 Rate Blood Pressure 130/63 103/61 102/57 O2 Sat by Pulse 93 93 91 Oximetry O2 Sat by Pulse Oximetry [ Anterior Bilateral Throughout] 12/30/20 12/30/20 12/30/20 11:45 12:00 12:04 Temperature 98.2 F Pulse Rate 103 H 104 H Pulse Rate [ 101 H From Monitor] Respiratory 20 20 Rate Blood Pressure 115/55 119/56 O2 Sat by Pulse 91 97 Oximetry O2 Sat by Pulse Oximetry [ Anterior Bilateral Throughout] 12/30/20 12/30/20 12/30/20 12:15 12:30 12:46 Temperature Pulse Rate 107 H 104 H 103 H Pulse Rate [ From Monitor] Respiratory 19 21 17 Rate Blood Pressure 122/55 115/55 104/51 O2 Sat by Pulse 93 95 95 Oximetry O2 Sat by Pulse Oximetry [ Anterior Bilateral Throughout] 12/30/20 12/30/20 12/30/20 13:00 13:15 13:30 Temperature Pulse Rate 102 H 102 H 100 H Pulse Rate [ From Monitor] Respiratory 20 19 17 Rate Blood Pressure 109/51 103/54 100/51 O2 Sat by Pulse 93 93 95 Oximetry O2 Sat by Pulse Oximetry [ Anterior Bilateral Throughout] 12/30/20 12/30/20 12/30/20 13:45 14:00 14:15 Temperature Pulse Rate 99 H 98 H 97 H Pulse Rate [ From Monitor] Respiratory 20 18 22 Rate Blood Pressure 105/49 108/51 111/50 O2 Sat by Pulse 93 94 97 Oximetry O2 Sat by Pulse Oximetry [ Anterior Bilateral Throughout] 12/30/20 12/30/20 12/30/20 14:30 14:40 14:45 Temperature 98.9 F Pulse Rate 102 H 102 H 101 H Pulse Rate [ From Monitor] Respiratory 22 23 Rate Blood Pressure 128/64 142/75 143/61 O2 Sat by Pulse 95 Oximetry O2 Sat by Pulse 96 Oximetry [ Anterior Bilateral Throughout] 12/30/20 12/30/20 12/30/20 15:00 15:15 15:24 Temperature Pulse Rate 100 H 98 H 96 H Pulse Rate [ From Monitor] Respiratory Rate Blood Pressure 126/57 128/56 128/56 O2 Sat by Pulse 96 Oximetry O2 Sat by Pulse Oximetry [ Anterior Bilateral Throughout] 12/30/20 12/30/20 15:30 15:45 Temperature Pulse Rate 97 H 97 H Pulse Rate [ From Monitor] Respiratory Rate Blood Pressure 139/61 121/55 O2 Sat by Pulse Oximetry O2 Sat by Pulse Oximetry [ Anterior Bilateral Throughout] - General physical appearance no distress, no pain - Respiratory normal expansion, normal respiratory effort, other (intubated on ventilator) - Abdomen soft, other (wound vac in place with SS drainage, NGT bilious) - Labs 12/29/20 05:20 12/30/20 08:06 Diabetes panel 12/30/20 Range/Units 08:06 Sodium 128 L (137-145) mmol/L Potassium 4.2 (3.6-5.0) mmol/L Chloride 90.7 L (98-107) mmol/L Carbon Dioxide 21 L (22-30) mmol/L BUN 86 H (9-20) mg/dL Creatinine 4.9 H (0.8-1.3) mg/dL Glucose 107 H (75-100) mg/dL Calcium 6.2 L (8.4-10.2) mg/dL Calcium panel 12/30/20 Range/Units 08:06 Calcium 6.2 L (8.4-10.2) mg/dL Phosphorus 5.30 H (2.5-4.5) mg/dL Pituitary panel 12/30/20 Range/Units 08:06 Sodium 128 L (137-145) mmol/L Potassium 4.2 (3.6-5.0) mmol/L Chloride 90.7 L (98-107) mmol/L Carbon Dioxide 21 L (22-30) mmol/L BUN 86 H (9-20) mg/dL Creatinine 4.9 H (0.8-1.3) mg/dL Glucose 107 H (75-100) mg/dL Calcium 6.2 L (8.4-10.2) mg/dL Adrenal panel 12/30/20 Range/Units 08:06 Sodium 128 L (137-145) mmol/L Potassium 4.2 (3.6-5.0) mmol/L Chloride 90.7 L (98-107) mmol/L Carbon Dioxide 21 L (22-30) mmol/L BUN 86 H (9-20) mg/dL Creatinine 4.9 H (0.8-1.3) mg/dL Glucose 107 H (75-100) mg/dL Calcium 6.2 L (8.4-10.2) mg/dL
--- NOTE | 2020-12-30 18:52 | Progress Note ---
Assessment and Plan Impression * Acute kidney injury. Most likely prerenal with additional tubular injury as well * Incarcerated hernia with ischemic bowel. Status post bowel resection * Hypernatremia * Sepsis * Respiratory failure * Hyperkalemia * Metabolic Acidosis, Gap Recommendations * Renal function worsening with creatinine from 2.6->3.8->4.1->4.0->4.7->4.9 with worsening urine output * Discussed with ICU, will trial HD today given worsening renal function, electrolyte abnormalities, and worsening volume as tolerated * Likely will need pressor support for HD * Hold NS to avoid volume overload * Patient currently has indwelling Lawrence catheter in place * TPN per nutrition/primary * Pressors to maintain MAP greater than 65 * Avoid nephrotoxins * Monitor fluid status and electrolytes closely Subjective Date of service: 12/30/20 Principal diagnosis: SBO and necrosis of large part of small intestine Interval history: Remains intubated, sedated on pressors. FiO2 60%, on vaso/levo. TPN @100cc/hr Objective - Exam Narrative Exam: General appearance: ill appearing appears stated age, intubated EENT: PERRL, mucous membranes moist Neck: no JVD Respiratory: Present: Ronchi (Few scattered rhonchi) Cardiology: regular, normal heart rate Gastrointestinal: other (Midline incision noted. Wound VAC in place.) Integumentary: other (No edema) - Vital Signs Vital signs: Vital Signs - 12hr 12/30/20 12/30/20 12/30/20 07:00 07:15 07:30 Temperature 98.3 F Pulse Rate 93 H 95 H 96 H Pulse Rate [ From Monitor] Respiratory 15 23 19 Rate Blood Pressure 96/53 104/59 99/56 O2 Sat by Pulse 96 97 97 Oximetry O2 Sat by Pulse Oximetry [ Anterior Bilateral Throughout] 12/30/20 12/30/20 12/30/20 07:46 07:59 08:00 Temperature Pulse Rate 99 H 98 H 94 H Pulse Rate [ 87 From Monitor] Respiratory 25 H 18 Rate Blood Pressure 99/56 87/54 87/54 O2 Sat by Pulse 96 97 96 Oximetry O2 Sat by Pulse Oximetry [ Anterior Bilateral Throughout] 12/30/20 12/30/20 12/30/20 08:15 08:30 08:45 Temperature Pulse Rate 99 H 98 H 98 H Pulse Rate [ From Monitor] Respiratory 17 16 19 Rate Blood Pressure 110/56 111/52 107/53 O2 Sat by Pulse 96 96 95 Oximetry O2 Sat by Pulse Oximetry [ Anterior Bilateral Throughout] 12/30/20 12/30/20 12/30/20 09:00 09:16 09:30 Temperature Pulse Rate 100 H 107 H 104 H Pulse Rate [ From Monitor] Respiratory 21 30 H 23 Rate Blood Pressure 97/58 135/72 134/55 O2 Sat by Pulse 93 96 93 Oximetry O2 Sat by Pulse Oximetry [ Anterior Bilateral Throughout] 12/30/20 12/30/20 12/30/20 09:45 10:00 10:15 Temperature Pulse Rate 104 H 104 H 105 H Pulse Rate [ From Monitor] Respiratory 17 22 22 Rate Blood Pressure 123/59 130/59 122/59 O2 Sat by Pulse 93 92 93 Oximetry O2 Sat by Pulse Oximetry [ Anterior Bilateral Throughout] 12/30/20 12/30/20 12/30/20 10:30 10:45 11:00 Temperature Pulse Rate 105 H 107 H 107 H Pulse Rate [ From Monitor] Respiratory 18 20 19 Rate Blood Pressure 112/53 126/59 130/63 O2 Sat by Pulse 92 92 92 Oximetry O2 Sat by Pulse Oximetry [ Anterior Bilateral Throughout] 12/30/20 12/30/20 12/30/20 11:13 11:15 11:30 Temperature Pulse Rate 107 H 107 H 106 H Pulse Rate [ From Monitor] Respiratory 18 17 Rate Blood Pressure 130/63 103/61 102/57 O2 Sat by Pulse 93 93 91 Oximetry O2 Sat by Pulse Oximetry [ Anterior Bilateral Throughout] 12/30/20 12/30/20 12/30/20 11:45 12:00 12:04 Temperature 98.2 F Pulse Rate 103 H 105 H Pulse Rate [ 101 H From Monitor] Respiratory 20 20 Rate Blood Pressure 115/55 119/56 O2 Sat by Pulse 91 97 Oximetry O2 Sat by Pulse Oximetry [ Anterior Bilateral Throughout] 12/30/20 12/30/20 12/30/20 12:15 12:30 12:46 Temperature Pulse Rate 107 H 104 H 103 H Pulse Rate [ From Monitor] Respiratory 19 21 17 Rate Blood Pressure 122/55 115/55 104/51 O2 Sat by Pulse 93 95 95 Oximetry O2 Sat by Pulse Oximetry [ Anterior Bilateral Throughout] 12/30/20 12/30/20 12/30/20 13:00 13:15 13:30 Temperature Pulse Rate 102 H 102 H 100 H Pulse Rate [ From Monitor] Respiratory 20 19 17 Rate Blood Pressure 109/51 103/54 100/51 O2 Sat by Pulse 93 93 95 Oximetry O2 Sat by Pulse Oximetry [ Anterior Bilateral Throughout] 12/30/20 12/30/20 12/30/20 13:45 14:00 14:15 Temperature Pulse Rate 99 H 98 H 97 H Pulse Rate [ From Monitor] Respiratory 20 18 22 Rate Blood Pressure 105/49 108/51 111/50 O2 Sat by Pulse 93 94 97 Oximetry O2 Sat by Pulse Oximetry [ Anterior Bilateral Throughout] 12/30/20 12/30/20 12/30/20 14:30 14:40 14:45 Temperature 98.9 F Pulse Rate 102 H 102 H 101 H Pulse Rate [ From Monitor] Respiratory 22 23 Rate Blood Pressure 128/64 142/75 143/61 O2 Sat by Pulse 95 Oximetry O2 Sat by Pulse 96 Oximetry [ Anterior Bilateral Throughout] 12/30/20 12/30/20 12/30/20 14:46 15:00 15:15 Temperature Pulse Rate 101 H 100 H 99 H Pulse Rate [ From Monitor] Respiratory 18 15 20 Rate Blood Pressure 142/75 126/57 128/56 O2 Sat by Pulse 96 95 97 Oximetry O2 Sat by Pulse Oximetry [ Anterior Bilateral Throughout] 12/30/20 12/30/20 12/30/20 15:24 15:30 15:45 Temperature Pulse Rate 96 H 97 H 97 H Pulse Rate [ From Monitor] Respiratory 18 24 Rate Blood Pressure 128/56 139/61 121/55 O2 Sat by Pulse 96 98 94 Oximetry O2 Sat by Pulse Oximetry [ Anterior Bilateral Throughout] 12/30/20 12/30/20 12/30/20 16:00 16:15 16:30 Temperature 98.3 F Pulse Rate 98 H 92 H 90 Pulse Rate [ 91 H From Monitor] Respiratory 22 20 22 Rate Blood Pressure 117/52 120/50 123/51 O2 Sat by Pulse 95 95 96 Oximetry O2 Sat by Pulse Oximetry [ Anterior Bilateral Throughout] 12/30/20 12/30/20 12/30/20 16:45 16:50 17:00 Temperature 98.5 F Pulse Rate 89 89 90 Pulse Rate [ From Monitor] Respiratory 20 21 19 Rate Blood Pressure 125/52 130/52 126/53 O2 Sat by Pulse 95 96 Oximetry O2 Sat by Pulse Oximetry [ Anterior Bilateral Throughout] 12/30/20 12/30/20 12/30/20 17:15 17:30 17:45 Temperature Pulse Rate 90 91 H 91 H Pulse Rate [ From Monitor] Respiratory 17 17 24 Rate Blood Pressure 128/57 121/52 126/52 O2 Sat by Pulse 96 96 94 Oximetry O2 Sat by Pulse Oximetry [ Anterior Bilateral Throughout] 12/30/20 12/30/20 12/30/20 18:00 18:16 18:30 Temperature Pulse Rate 93 H 104 H Pulse Rate [ From Monitor] Respiratory 19 27 H Rate Blood Pressure 117/48 117/48 136/61 O2 Sat by Pulse 95 69 L 95 Oximetry O2 Sat by Pulse Oximetry [ Anterior Bilateral Throughout] - Lab 12/29/20 05:20 12/30/20 08:06 Most recent lab results ABG pH 7.261 (7.320-7.450) L 12/30/20 03:31 ABG pCO2 51.0 mm Hg 12/20/20 21:30 ABG pO2 104.4 mm Hg (80.0-90.0) H 12/20/20 21:30 ABG HCO3 25.3 mmol/L (20.0-26.0) 12/20/20 21:30 ABG O2 Saturation 98.0 (0-100) 12/30/20 03:31 Calcium 6.2 mg/dL (8.4-10.2) L 12/30/20 08:06 Phosphorus 5.30 mg/dL (2.5-4.5) H 12/30/20 08:06 Magnesium 1.50 mg/dL (1.7-2.3) L 12/30/20 08:06 Urine Creatinine 78.1 mg/dL (0.1-20.0) H 12/23/20 12:15 Urine Sodium 13 mmol/L 12/23/20 12:15 Medications & Allergies - Medications Allergies/Adverse Reactions: Allergies Iodinated Contrast Media Adverse Reaction (Verified 09/04/18 14:20) Unknown Home Medications: Home Medications Medication Instructions Recorded Confirmed Last Taken Type Aspirin 81 mg PO DAILY #30 tab.chew 09/08/18 09/12/20 03/31/20 09:28 Rx AtorvaSTATin [Lipitor] 80 mg PO QHS tablet 05/08/19 09/12/2020 Rx Albuterol Sulfate [Proventil Hfa] 13.4 gm IH Q6H #1 hfa.aer.ad 04/01/20 09/12/20 Unknown Rx Clopidogrel [Plavix] 75 mg PO DAILY #30 tablet 04/01/20 09/12/20 Unknown Rx Gabapentin 300 mg PO BID@0700,1800 30 Days 04/01/20 09/12/20 Unknown Rx capsule Gabapentin 600 mg PO QHS 30 Days capsule 04/01/20 09/12/20 Unknown Rx Metoprolol [Lopressor TAB] 25 mg PO BID #60 tablet 04/01/20 09/12/20 Unknown Rx Hardin-3/Dha/Epa/Fish Oil [Hardin 3 1 each PO BID #60 capsule 04/01/20 09/12/20 Unknown Rx 500 Softgel] Tiotropium Yantis [Spiriva] 2 puff IH DAILY #30 cap.w.dev 04/01/20 09/12/20 Unknown Rx Ubidecarenone [Co Q-10] 10 mg PO BID #60 tab 04/01/20 09/12/20 03/29/20 Rx cilostazoL [Pletal] 50 mg PO BID 30 Days tablet 04/01/20 09/12/20 Unknown Rx oxyCODONE /ACETAMINOPHEN [Percocet 2 tab PO Q6H PRN tablet 04/01/20 09/12/20 U nknown Rx 5/325 mg] Phosphorus #1 [K-Phos Neutral] 250 mg PO QID 2 Days #8 tablet 09/14/20 Unknown Rx Active Medications: Generic Name Dose Route Start Last Admin Trade Name Freq PRN Reason Stop Dose Admin Acetaminophen 650 mg 12/21/20 11:51 12/25/20 20:35 Acetaminophen 650 Mg Rect Supp MN 650 mg Q4H PRN Administration TEMP >/=100.4 Bisacodyl 10 mg 12/30/20 11:00 12/30/20 11:53 Bisacodyl 10 Mg Rect Supp MN 10 mg QDAY ASCENCION Administration Dextrose 50 ml 12/24/20 10:49 Dextrose 50% In Water (25gm) 50 Ml Syringe IV Q30MIN PRN Hypoglycemia Protocol Famotidine 20 mg 12/26/20 10:00 12/30/20 09:17 Famotidine 20 Mg/2 Ml Inj IV 20 mg DAILY ASCENCION Administration Fentanyl 50 mcg 12/20/20 21:58 12/21/20 03:46 Fentanyl 100 Mcg/2 Ml Inj IV 50 mcg Q10MIN PRN Administration ANALGESIA Hydrophilic Ointment 1 applic 12/20/20 21:58 Lip Therapy Vaseline TP Q2HR PRN Dry Lips Fentanyl Citrate 2,000 mcg in 100 mls @ 6.01 mls/hr 12/20/20 22:00 12/30/20 14:22 Fentanyl Drip Premix IV 4 mcg/kg/hr TITR ASCENCION 24.04 mls/hr Administration Protocol 1 MCG/KG/HR Propofol 1,000 mg in 100 mls @ 3.606 mls/hr 12/20/20 22:00 12/30/20 13:45 Diprivan 10 Mg/Ml IV 25 mcg/kg/min TITR ASCENCION 18.03 mls/hr Administration Protocol 5 MCG/KG/MIN NORepinephrine/NS 8 MG-250 ML 8 mg in 250 mls @ 3.75 mls/hr 12/21/20 09:00 12/30/20 04:00 Norepinephrine/Ns 8 Mg-250 Ml (Double Conc) IV 2 mcg/min TITRATE ASCENCION 3.75 mls/hr Titration Protocol 2 MCG/MIN Vasopressin 20 unit/ Sodium 101 mls @ 9.09 mls/hr 12/24/20 09:00 12/30/20 18:47 Chloride IV 0.03 units/min TITR ASCENCION 9.09 mls/hr Administration Protocol 0.03 UNITS/MIN Piperacillin Sod/Tazobactam Sod 4.5 gm in 100 mls @ 200 mls/hr 12/26/20 18:00 12/30/20 17:41 Zosyn/Ns 4.5gm/100ml IV 200 mls/hr Q12H ASCENCION Administration Protocol Fluconazole 200 mg in 100 mls @ 100 mls/hr 12/26/20 10:00 12/30/20 09:18 Diflucan IV 100 mls/hr Q24H ASCENCION Administration Protocol Sodium Chloride 1,000 mls @ 100 mls/hr 12/29/20 11:15 12/30/20 08:13 Nacl 0.9% 1000 Ml IV 100 mls/hr DIRECT ASCENCION Administration Amino Acids/Electrolytes/Dextrose 2,400 mls @ 100 mls/hr 12/29/20 20:00 12/29/20 20:02 Tpn Adult IV 12/30/20 19:59 100 mls/hr DAILY@1999 [facility] Administration Protocol Sodium Chloride 100 mls @ 999 mls/hr 12/30/20 13:00 Nacl 0.9% IV MARILU PRN Hypotension Amino Acids/Electrolytes/Dextrose 2,400 mls @ 100 mls/hr 12/30/20 20:00 Tpn Adult IV 12/31/20 19:59 DAILY@1999 [facility] Protocol Insulin Human Regular 0 units 12/28/20 00:00 12/30/20 17:41 Insulin Regular, Human 100 Units/1 Ml SUB-Q Not Given Q6H [facility] Protocol Multi-Ingred Cream/Lotion/Oil/Oint 1 applic 12/20/20 21:58 Mineral Oil/Petrolatum, White Ophth Oint 3.5 Gm OU Q4HR PRN Dry Eye(s) Sodium Chloride 10 ml 12/20/20 22:00 12/30/20 09:17 Sodium Chloride 0.9% 10 Ml Flush Syringe IV 10 ml BID ASCENCION Administration Sodium Chloride 10 ml 12/20/20 16:42 Sodium Chloride 0.9% 10 Ml Flush Syringe IV PRN PRN LINE FLUSH
[2020-12-30] MEDS ORDERED: TOTAL PARENTERAL NUTRITION 2,400 ML IV SCH (20:00)
[2020-12-31] MEDS: fentaNYL DRIP Premix 2,000 MCG/100 ML BAG IV SCH ×6 (02:04→21:53)
[2020-12-31] MEDS: PIPERACIL/TAZOBACTA 4.5/NS 100 4.5 GM/100 ML VIAL IV SCH ×2 (05:24→17:18)
[2020-12-31] MEDS: VASOPRESSIN 20 UNIT in SODIUM CHLORIDE 0.9% 100 ML IV SCH ×2 (05:24→15:59)
[2020-12-31] MEDS: INSULIN REGULAR, HUMAN 100 UNITS/1 ML SUB-Q SCH ×3 (05:26→17:27)
[2020-12-31 06:01] LABS: Calcium 6.6 mg/dL (8.4-10.2)
[2020-12-31] MEDS: SODIUM CHLORIDE 0.9% 1000 ML 1,000 ML IV SCH (07:46)
--- NOTE | 2020-12-31 09:06 | Progress Note ---
Assessment and Plan Impression * Acute kidney injury. Most likely prerenal with additional tubular injury as well * Incarcerated hernia with ischemic bowel. Status post bowel resection * Hypernatremia * Sepsis * Respiratory failure * Hyperkalemia * Metabolic Acidosis, Gap Recommendations * Renal function was worsening with creatinine from 2.6->3.8->4.1->4.0->4.7->4.9 with worsening urine output * Started HD 12/30 for worsening renal function, electrolyte abnormalities, and worsening volume * Likely will need pressor support for HD; plan for additional HD today for ~1L UF as tolerated, adjust Na bath * Hold NS to avoid volume overload * Patient currently has indwelling Lawrence catheter in place * TPN per nutrition/primary * Pressors to maintain MAP greater than 65 * Avoid nephrotoxins * Monitor fluid status and electrolytes closely Subjective Date of service: 12/31/20 Principal diagnosis: SBO and necrosis of large part of small intestine Interval history: Started HD yesterday, seems to have tolerated well but remains on pressors. FiO2 50% this AM Objective - Exam Narrative Exam: General appearance: ill appearing appears stated age, intubated EENT: PERRL, mucous membranes moist Neck: no JVD Respiratory: Present: Ronchi (Few scattered rhonchi) Cardiology: regular, normal heart rate Gastrointestinal: other (Midline incision noted. Wound VAC in place.) Integumentary: other (No edema) - Vital Signs Vital signs: Vital Signs - 12hr 12/30/20 12/30/20 12/30/20 21:15 21:25 21:30 Temperature Pulse Rate 101 H 99 H Respiratory 22 Rate Respiratory Rate [abd] Respiratory Rate [chest pain] Blood Pressure 124/56 124/56 O2 Sat by Pulse 95 95 97 Oximetry 12/30/20 12/30/20 12/30/20 21:45 22:00 22:15 Temperature Pulse Rate 99 H 99 H 99 H Respiratory Rate Respiratory Rate [abd] Respiratory Rate [chest pain] Blood Pressure 127/55 137/62 118/57 O2 Sat by Pulse 97 97 97 Oximetry 12/30/20 12/30/20 12/30/20 22:30 22:45 23:00 Temperature Pulse Rate 100 H 101 H 101 H Respiratory Rate Respiratory Rate [abd] Respiratory Rate [chest pain] Blood Pressure 127/56 124/57 126/61 O2 Sat by Pulse 96 96 96 Oximetry 12/30/20 12/30/20 12/30/20 23:07 23:10 23:16 Temperature 98.4 F Pulse Rate 97 H 99 H Respiratory 22 Rate Respiratory 25 H Rate [abd] Respiratory 25 H Rate [chest pain] Blood Pressure 120/52 O2 Sat by Pulse 95 96 Oximetry 12/30/20 12/30/20 12/30/20 23:30 23:45 23:57 Temperature Pulse Rate 102 H 97 H 97 H Respiratory Rate Respiratory Rate [abd] Respiratory Rate [chest pain] Blood Pressure 135/60 113/54 113/54 O2 Sat by Pulse 94 96 97 Oximetry 12/31/20 12/31/20 12/31/20 00:00 00:15 00:30 Temperature Pulse Rate 97 H 97 H 94 H Respiratory Rate Respiratory Rate [abd] Respiratory Rate [chest pain] Blood Pressure 113/52 116/52 113/52 O2 Sat by Pulse 97 96 97 Oximetry 12/31/20 12/31/20 12/31/20 00:45 01:00 01:15 Temperature Pulse Rate 92 H 94 H 91 H Respiratory 22 Rate Respiratory Rate [abd] Respiratory Rate [chest pain] Blood Pressure 114/50 112/57 117/54 O2 Sat by Pulse 97 97 96 Oximetry 12/31/20 12/31/20 12/31/20 01:30 01:45 02:00 Temperature Pulse Rate 93 H 91 H 91 H Respiratory Rate Respiratory Rate [abd] Respiratory Rate [chest pain] Blood Pressure 119/53 113/49 113/51 O2 Sat by Pulse 97 97 98 Oximetry 12/31/20 12/31/20 12/31/20 02:15 02:30 02:45 Temperature Pulse Rate 91 H 91 H 93 H Respiratory Rate Respiratory Rate [abd] Respiratory Rate [chest pain] Blood Pressure 114/51 117/51 119/50 O2 Sat by Pulse 97 97 98 Oximetry 12/31/20 12/31/20 12/31/20 03:00 03:15 03:21 Temperature 98.4 F Pulse Rate 96 H 95 H Respiratory Rate Respiratory Rate [abd] Respiratory Rate [chest pain] Blood Pressure 114/51 117/52 O2 Sat by Pulse 97 Oximetry 12/31/20 12/31/20 12/31/20 03:30 03:32 03:45 Temperature Pulse Rate 94 H 94 H 93 H Respiratory Rate Respiratory Rate [abd] Respiratory Rate [chest pain] Blood Pressure 115/53 115/53 116/51 O2 Sat by Pulse 98 98 97 Oximetry 12/31/20 12/31/20 12/31/20 04:00 04:15 04:30 Temperature Pulse Rate 91 H 92 H 94 H Respiratory Rate Respiratory Rate [abd] Respiratory Rate [chest pain] Blood Pressure 115/53 114/49 115/57 O2 Sat by Pulse 99 98 98 Oximetry 12/31/20 12/31/20 12/31/20 04:45 05:00 05:15 Temperature Pulse Rate 98 H 97 H 98 H Respiratory Rate Respiratory 25 H Rate [abd] Respiratory 25 H Rate [chest pain] Blood Pressure 121/63 113/56 122/51 O2 Sat by Pulse 96 97 95 Oximetry 12/31/20 12/31/20 12/31/20 05:30 05:45 06:00 Temperature Pulse Rate 99 H 96 H 95 H Respiratory Rate Respiratory Rate [abd] Respiratory Rate [chest pain] Blood Pressure 111/50 103/49 107/48 O2 Sat by Pulse 96 95 96 Oximetry 12/31/20 12/31/20 12/31/20 06:15 06:30 06:46 Temperature Pulse Rate 95 H 94 H 90 Respiratory Rate Respiratory Rate [abd] Respiratory Rate [chest pain] Blood Pressure 102/45 106/48 124/58 O2 Sat by Pulse 96 97 98 Oximetry 12/31/20 12/31/20 12/31/20 07:00 07:15 07:33 Temperature Pulse Rate 88 87 88 Respiratory Rate Respiratory Rate [abd] Respiratory Rate [chest pain] Blood Pressure 121/55 121/57 119/57 O2 Sat by Pulse 97 99 98 Oximetry 12/31/20 08:00 Temperature 98.1 F Pulse Rate Respiratory Rate Respiratory Rate [abd] Respiratory Rate [chest pain] Blood Pressure O2 Sat by Pulse Oximetry - Lab 12/29/20 05:20 12/31/20 04:40 Most recent lab results ABG pH 7.267 (7.320-7.450) L 12/31/20 02:14 ABG pCO2 51.0 mm Hg 12/20/20 21:30 ABG pO2 104.4 mm Hg (80.0-90.0) H 12/20/20 21:30 ABG HCO3 25.3 mmol/L (20.0-26.0) 12/20/20 21:30 ABG O2 Saturation 95.6 (0-100) 12/31/20 02:14 Calcium 6.6 mg/dL (8.4-10.2) L 12/31/20 04:40 Phosphorus 4.70 mg/dL (2.5-4.5) H 12/31/20 04:40 Magnesium 1.60 mg/dL (1.7-2.3) L 12/31/20 04:40 Urine Creatinine 78.1 mg/dL (0.1-20.0) H 12/23/20 12:15 Urine Sodium 13 mmol/L 12/23/20 12:15 Medications & Allergies - Medications Allergies/Adverse Reactions: Allergies Iodinated Contrast Media Adverse Reaction (Verified 09/04/18 14:20) Unknown Home Medications: Home Medications Medication Instructions Recorded Confirmed Last Taken Type Aspirin 81 mg PO DAILY #30 tab.chew 09/08/18 09/12/20 03/31/20 09:28 Rx AtorvaSTATin [Lipitor] 80 mg PO QHS tablet 05/08/19 09/12/20 03/28/20 Rx Albuterol Sulfate [Proventil Hfa] 13.4 gm IH Q6H #1 hfa.aer.ad 04/01/20 09/12/20 Unknown Rx Clopidogrel [Plavix] 75 mg PO DAILY #30 tablet 04/01/20 09/12/20 Unknown Rx Gabapentin 300 mg PO BID@0700,1800 30 Days 04/01/20 09/12/20 Unknown Rx capsule Gabapentin 600 mg PO QHS 30 Days capsule 04/01/20 09/12/20 Unknown Rx Metoprolol [Lopressor TAB] 25 mg PO BID #60 tablet 04/01/20 09/12/20 Unknown Rx Greenback-3/Dha/Epa/Fish Oil [Greenback 3 1 each PO BID #60 capsule 04/01/20 09/12/20 Unknown Rx 500 Softgel] Tiotropium [place] [Spiriva] 2 puff IH DAILY #30 cap.w.dev 04/01/20 09/12/20 Unknown Rx Ubidecarenone [Co Q-10] 10 mg PO BID #60 tab 04/01/20 09/12/20 03/29/20 Rx cilostazoL [Pletal] 50 mg PO BID 30 Days tablet 04/01/20 09/12/20 Unknown Rx oxyCODONE /ACETAMINOPHEN [Percocet 2 tab PO Q6H PRN tablet 04/01/20 09/12/20 Unknown Rx 5/325 mg] Phosphorus #1 [K-Phos Neutral] 250 mg PO QID 2 Days #8 tablet 09/14/20 Unknown Rx Active Medications: Generic Name Dose Route Start Last Admin Trade Name Freq PRN Reason Stop Dose Admin Acetaminophen 650 mg 12/21/20 11:51 12/25/20 20:35 Acetaminophen 650 Mg Rect Supp MA 650 mg Q4H PRN Administration TEMP >/=100.4 Bisacodyl 10 mg 12/30/20 11:00 12/30/20 11:53 Bisacodyl 10 Mg Rect Supp MA 10 mg QDAY ASCENCION Administration Dextrose 50 ml 12/24/20 10:49 Dextrose 50% In Water (25gm) 50 Ml Syringe IV Q30MIN PRN Hypoglycemia Protocol Famotidine 20 mg 12/26/20 10:00 12/30/20 09:17 Famotidine 20 Mg/2 Ml Inj IV 20 mg DAILY ASCENCION Administration Fentanyl 50 mcg 12/20/20 21:58 12/21/20 03:46 Fentanyl 100 Mcg/2 Ml Inj IV 50 mcg Q10MIN PRN Administration ANALGESIA Hydrophilic Ointment 1 applic 12/20/20 21:58 Lip Therapy Vaseline TP Q2HR PRN Dry Lips Fentanyl Citrate 2,000 mcg in 100 mls @ 6.01 mls/hr 12/20/20 22:00 12/31/20 06:27 Fentanyl Drip Premix IV 4 mcg/kg/hr TITR ASCENCION 24.04 mls/hr Administration Protocol 1 MCG/KG/HR Propofol 1,000 mg in 100 mls @ 3.606 mls/hr 12/20/20 22:00 12/31/20 05:25 Diprivan 10 Mg/Ml IV 25 mcg/kg/min TITR ASCENCION 18.03 mls/hr Administration Protocol 5 MCG/KG/MIN NORepinephrine/NS 8 MG-250 ML 8 mg in 250 mls @ 3.75 mls/hr 12/21/20 09:00 12/31/20 07:46 Norepinephrine/Ns 8 Mg-250 Ml (Double Conc) IV 2 mcg/min TITRATE ASCENCION 3.75 mls/hr Titration Protocol 2 MCG/MIN Vasopressin 20 unit/ Sodium 101 mls @ 9.09 mls/hr 12/24/20 09:00 12/31/20 05:24 Chloride IV 0.03 units/min TITR ASCENCION 9.09 mls/hr Administration Protocol 0.03 UNITS/MIN Piperacillin Sod/Tazobactam Sod 4.5 gm in 100 mls @ 200 mls/hr 12/26/20 18:00 12/31/20 05:24 Zosyn/Ns 4.5gm/100ml IV 200 mls/hr Q12H ASCENCION Administration Protocol Fluconazole 200 mg in 100 mls @ 100 mls/hr 12/26/20 10:00 12/30/20 09:18 Diflucan IV 100 mls/hr Q24H ASCENCION Administration Protocol Sodium Chloride 1,000 mls @ 100 mls/hr 12/29/20 11:15 12/31/20 07:46 Nacl 0.9% 1000 Ml IV 100 mls/hr DIRECT ASCENCION Administration Sodium Chloride 100 mls @ 999 mls/hr 12/30/20 13:00 Nacl 0.9% IV MARILU PRN Hypotension Amino Acids/Electrolytes/Dextrose 2,400 mls @ 100 mls/hr 12/30/20 20:00 12/30/20 20:16 Tpn Adult IV 12/31/20 19:59 100 mls/hr DAILY@2000 [facility] [place] Administration Protocol Insulin Human Regular 0 units 12/28/20 00:00 12/31/20 05:26 Insulin Regular, Human 100 Units/1 Ml SUB-Q Not Given Q6H [facility] [place] Protocol Multi-Ingred Cream/Lotion/Oil/Oint 1 applic 12/20/20 21:58 Mineral Oil/Petrolatum, White Ophth Oint 3.5 Gm OU Q4HR PRN Dry Eye(s) Sodium Chloride 10 ml 12/20/20 22:00 12/30/20 21:27 Sodium Chloride 0.9% 10 Ml Flush Syringe IV 10 ml BID ASCENCION Administration Sodium Chloride 10 ml 12/20/20 16:42 Sodium Chloride 0.9% 10 Ml Flush Syringe IV PRN PRN LINE FLUSH
[2020-12-31] MEDS: FAMOTIDINE 20 MG/2 ML INJ IV SCH (09:49)
[2020-12-31] MEDS: FLUCONAZOLE 200 MG 200 MG/100 ML BAG IV SCH (09:49)
--- NOTE | 2020-12-31 10:02 | Progress Note ---
Assessment and Plan Assessment and plan: This is a 60-year-old male with obesity, hypertension, nicotine dependence, PVD s/p stent placement on dual antiplatelet therapy, hyperlipidemia, OA, GERD, ventral hernia and small bowel obstruction who was admitted with small bowel obstruction and peritonitis Septic Shock, POA (presented with leukocytosis, tachycardia, tachypnea,febrile and evidence of peritonitis) COVID-19 PUI, ruled out Small bowel obstruction with peritonitis Ventral hernia Leukocytosis Hypernatremia Hypercholremia Hypocalcemia Acute Kidney Injury Obesity Hypertension Nicotine dependence CAD s/p stent placement Hyperlipidemia Osteoarthritis GERD History Interval history: This is a 60-year-old male with obesity, hypertension, nicotine dependence, PVD s/p stent placement on dual antiplatelet therapy, hyperlipidemia, OA, GERD, ventral hernia with SBO who presents to the emergency department on 12/20 with severe, diffuse, worsened with movement, slightly relieved with rest abdominal pain rated at 10/10 with decreased oral intake, nausea and multiple episodes of vomiting. Patient underwent a CT of his abdomen/pelvis and was found to have evidence of small bowel obstruction as well as clinical findings consistent with acute peritonitis. Patient was admitted to the hospital service with acute peritonitis and incarcerated ventral hernia with consults to [facility] and surgery. 12/21: Patient is status post ex lap, extensive lysis of adhesions, small bowel resection, peritoneal lavage and ABThera abdominal wound VAC placement by Dr. Tena and Dr. Brumfield on 12/20 with removal of a 70 cm segment of necrotic small bowel. Patient was intubated and sedated on propofol 10/ 4 at the time of my examination on Assist-control, rate of 24, PEEP of 6, tidal volume of 550 and FiO2 35%. Patient needed to be deeply sedated and there was a became hypotensive. Patient was started on patient for support with Levophed and received bolus of IVF. 12/22: Patient was febrile to 103 and vancomycin and Diflucan were added by [facility] and infectious disease was consulted and they increased Zosyn and stop vancomycin. Patient was given additional 1 L bolus today for CVP goal of 10-12. At the time of examination patient was on Levophed, propofol and fentanyl CMV tidal volume 500, rate of 24, PEEP of 6 and FiO2 65%. Plan for OR tomorrow 12/23: Patient Cr/BUN noted to be increased and nephrology was consulted. ID decreased the zosyn dose d/r renal function. Urine studies ordered. [place] placed today. LR boluses per [facility], TPN to be started. Fractional excretion of sodium calculated at 0.16 indicating prerenal state 12/24: Patient is status post abdominal exploration, small bowel resection of 4 to 5 cm segment of dusky small bowel, peritoneal lavage and ABThera wound VAC placement on 12/23 with surgery, leukocytosis and renal function is improving, worsening hypernatremia and hyperchloremia. Patient will be started on TPN today. We will place on SSI/Accu-Cheks every every 6 hours. Patient noted to be nearly maxed on Levophed and vasopressin was ordered. Remains sedated and on MV 12/25: Leukocytosis continues to improve, given Ca Gluconate today, Hypernatremia, Cr and hyperchorlemia slightly worsened today. Patient is sedated with propofol and fentanyl on CMV TV 500, Rate 24, Peep 6, FiO2 50%. He remains on levophed. Possible OR Saturday. 12/28: Patient is orally intubated with AC mode ventilation rate 24, tidal volume 500, FiO2 75% and PEEP of 6. POD#8 s/p ex lap and small bowel resection for necrotic bowel secondary to incarcerated ventral hernia left with open abdomen. POD#5 s/p abdominal exploration with segmental small bowel resection. abthera placement POD#2 s/p abdominal exploration, small bowel resection for ischemia, abthera placement -[facility], surgery, infectious disease, nephrology consulted, appreciate recommendations -IV abx per ID: Zosyn, fluconazole -NGT to LIWS -NPO for now, TPN -SSI, Accucheck q6 -Vasopressor support with levophed -On mechanical ventilation, wean as tolerated, VAP bundle -Sedated with propofol and analgesia with fentanyl drip -Trend CBC, BMP, Mg, Phos -GI/DVT prophylaxis: PPI, SCDs to bilateral lower extremities while in bed, avoid chemical anticoagulation to cleared by surgery 12/29: Patient underwent abdominal exploration, small bowel resection, small bowel anastomosis and ABThera wound VAC placement this a.m. Patient remains on AC mode ventilation with a rate of 24, tidal volume 500, FiO2 65% and PEEP of 6. Continue antibiotics per ID recommendations. Continue vasopressor support as needed. Continue TPN for nutritional support. 12/30: Patient currently with AC mode ventilation rate of 24, tidal volume 500, FiO2 60% and PEEP of 6. Patient underwent further surgery yesterday with anothe r abdominal exploration, small bowel resection, small bowel anastomosis and replacement of the ABThera wound VAC. Patient continues to require vasopressor support with vasopressin and Levophed. Continue TPN for nutrition. Continue propofol and fentanyl for sedation. Continue Zosyn per ID recommendations 6/: Patient currently with AC mode ventilation rate of 24, tidal volume 500, FiO2 50% and PEEP of 6. POD#12 s/p ex lap and small bowel resection for necrotic bowel secondary to incarcerated ventral hernia left with open abdomen. POD#9 s/p abdominal exploration with segmental small bowel resection. abthera placement POD#3 s/p abdominal exploration, small bowel resection for ischemia, abthera placement POD#2 s/p abdominal exploration with small bowel anastamosis and abthera vac placement Continue hemodialysis per nephrology recommendations. Surgery plans for abdominal washout and bowel examination on Saturday. If anastamosis looks viable and no other issues, surgery plans to close his abdomen. The high probability of a clinically significant, sudden or life threatening deterioration of the [multi] system(s) required my full and direct attention, intervention and personal management. The aggregate critical care time was [34] minutes. This time is in addition to time spent performing re continue sedation with propofol and fentanyl as needed. Ported procedures but includes the following: [x] Data Review and interpretation [x] Patient assessment and monitoring of vital signs [x] Documentation [x] Medication orders and management History Interval history: This is a 60-year-old male with obesity, hypertension, nicotine dependence, PVD s/p stent placement on dual antiplatelet therapy, hyperlipidemia, OA, GERD, ventral hernia with SBO who presents to the emergency department on 12/20 with severe, diffuse, worsened with movement, slightly relieved with rest abdominal pain rated at 10/10 with decreased oral intake, nausea and multiple episodes of vomiting. Patient underwent a CT of his abdomen/pelvis and was found to have evidence of small bowel obstruction as well as clinical findings consistent with acute peritonitis. Patient was admitted to the hospital service with acute peritonitis and incarcerated ventral hernia with consults to [facility] and surgery. No new issues overnight. Hospitalist Physical - Constitutional Vitals: Temp Pulse Resp BP Pulse Ox 98.1 F 88 25 H 119/57 98 12/31/20 08:00 12/31/20 07:33 12/31/20 05:15 12/31/20 07:33 12/31/20 07:33 General appearance: Present: no acute distress, well-nourished - EENT Eyes: Present: PERRL, EOM intact ENT: hearing intact, clear oral mucosa, dentition normal - Neck Neck: Present: supple, normal ROM - Respiratory Respiratory effort: normal Respiratory: bilateral: CTA - Cardiovascular Rhythm: regular Heart Sounds: Present: S1 & S2. Absent: gallop, rub - Extremities Extremities: no ischemia, No edema, Full ROM - Abdominal General gastrointestinal: soft, non-tender, non-distended, normal bowel sounds - Integumentary Integumentary: Present: clear, warm, dry - Neurologic Neurologic: CNII-XII intact, moves all extremities HEART Score - HEART Score Troponin: Troponin T < 0.010 ng/mL (0.00-0.029) 12/20/20 13:58 Results - Labs CBC & Chem 7: 12/29/20 05:20 12/31/20 04:40 Labs: Laboratory Last Values WBC 21.0 K/mm3 (4.5-11.0) H 12/29/20 05:20 RBC 2.89 M/mm3 (3.65-5.03) L 12/29/20 05:20 Hgb 8.1 gm/dl (11.8-15.2) L 12/29/20 05:20 Hct 25.5 % (35.5-45.6) L 12/29/20 05:20 MCV 88 fl (84-94) 12/29/20 05:20 MCH 28 pg (28-32) 12/29/20 05:20 MCHC 32 % (32-34) 12/29/20 05:20 RDW 16.1 % (13.2-15.2) H 12/29/20 05:20 Plt Count 124 K/mm3 (140-440) L 12/29/20 05:20 Add Manual Diff Complete 12/28/20 07:28 Total Counted 100 12/28/20 07:28 Seg Neutrophils % Battery Assembler 12/28/20 07:28 Seg Neuts % (Manual) 95.0 % (40.0-70.0) H 12/28/20 07:28 Band Neutrophils % 1.0 % 12/28/20 07:28 Lymphocytes % (Manual) 3.0 % (13.4-35.0) L 12/21/20 08:14 Monocytes % (Manual) 4.0 % (0.0-7.3) 12/28/20 07:28 Nucleated RBC % Not Reportable 12/28/20 07:28 Seg Neutrophils # Man 25.8 K/mm3 (1.8-7.7) H 12/28/20 07:28 Band Neutrophils # 0.3 K/mm3 12/28/20 07:28 Lymphocytes # (Manual) 0.0 K/mm3 (1.2-5.4) L 12/28/20 07:28 Abs React Lymphs (Man) 0.0 K/mm3 12/28/20 07:28 Monocytes # (Manual) 1.1 K/mm3 (0.0-0.8) H 12/28/20 07:28 Eosinophils # (Manual) 0.0 K/mm3 (0.0-0.4) 12/28/20 07:28 Basophils # (Manual) 0.0 K/mm3 (0.0-0.1) 12/28/20 07:28 Metamyelocytes # 0.0 K/mm3 12/28/20 07:28 Myelocytes # 0.0 K/mm3 12/28/20 07:28 Promyelocytes # 0.0 K/mm3 12/28/20 07:28 Blast Cells # 0.0 K/mm3 12/28/20 07:28 WBC Morphology Not Reportable 12/28/20 07:28 Hypersegmented Neuts Not Reportable 12/28/20 07:28 Hyposegmented Neuts Not Reportable 12/28/20 07:28 Hypogranular Neuts Not Reportable 12/28/20 07:28 Smudge Cells Not Reportable 12/28/20 07:28 Toxic Granulation Not Reportable 12/28/20 07:28 Toxic Vacuolation Not Reportable 12/28/20 07:28 Dohle Bodies Not Reportable 12/28/20 07:28 Pelger-Huet Anomaly Not Reportable 12/28/20 07:28 Mirian Rods Not Reportable 12/28/20 07:28 Platelet Estimate Consistent w auto 12/28/20 07:28 Clumped Platelets Not Reportable 12/28/20 07:28 Plt Clumps, EDTA Not Reportable 12/28/20 07:28 Large Platelets Not Reportable 12/28/20 07:28 Giant Platelets Not Reportable 12/28/20 07:28 Platelet Satelliting Not Reportable 12/28/20 07:28 Plt Morphology Comment Not Reportable 12/28/20 07:28 RBC Morphology Not Reportable 12/28/20 07:28 Dimorphic RBCs Not Reportable 12/28/20 07:28 Polychromasia Not Reportable 12/28/20 07:28 Hypochromasia Few 12/28/20 07:28 Poikilocytosis Not Reportable 12/28/20 07:28 Anisocytosis Few 12/28/20 07:28 Microcytosis Not Reportable 12/28/20 07:28 Macrocytosis Not Reportable 12/28/20 07:28 Spherocytes Not Reportable 12/28/20 07:28 Pappenheimer Bodies Not Reportable 12/28/20 07:28 Sickle Cells Not Reportable 12/28/20 07:28 Target Cells Not Reportable 12/28/20 07:28 Tear Drop Cells Not Reportable 12/28/20 07:28 Ovalocytes Not Reportable 12/28/20 07:28 Helmet Cells Not Reportable 12/28/20 07:28 [place] Bodies Not Reportable 12/28/20 07:28 [place] Rings Not Reportable 12/28/20 07:28 [place] Cells Not Reportable 12/28/20 07:28 Bite Cells Not Reportable 12/28/20 07:28 Crenated Cell Not Reportable 12/28/20 07:28 Elliptocytes Not Reportable 12/28/20 07:28 Acanthocytes (Spur) Not Reportable 12/28/20 07:28 Rouleaux Not Reportable 12/28/20 07:28 Hemoglobin C Crystals Not Reportable 12/28/20 07:28 Schistocytes Not Reportable 12/28/20 07:28 Malaria parasites Not Reportable 12/28/20 07:28 Dylon Bodies Not Reportable 12/28/20 07:28 Hem Pathologist Commnt No 12/28/20 07:28 APTT 49.4 Sec. (24.2-36.6) H 12/20/20 13:58 ABG pH 7.267 (7.320-7.450) L 12/31/20 02:14 POC ABG pCO2 46.7 mmHg (32.0-48.0) 12/31/20 02:14 ABG pCO2 51.0 mm Hg 12/20/20 21:30 POC ABG pO2 90.1 mmHg (83-108) 12/31/20 02:14 ABG pO2 104.4 mm Hg (80.0-90.0) H 12/20/20 21:30 POC ABG HCO3 20.8 12/31/20 02:14 ABG HCO3 25.3 mmol/L (20.0-26.0) 12/20/20 21:30 ABG O2 Saturation 95.6 (0-100) 12/31/20 02:14 ABG O2 Content 20.3 (0.0-44) 12/20/20 21:30 POC ABG Base Excess -5.8 12/31/20 02:14 ABG Base Excess -1.7 mmol/L (-2.0-3.0) 12/20/20 21:30 ABG Hemoglobin 8.0 (12.0-17.5) L 12/31/20 02:14 ABG Oxyhemoglobin 93.7 (94-98) L 12/31/20 02:14 ABG Carboxyhemoglobin 1.3 % (0.0-5.0) 12/20/20 21:30 ABG Methemoglobin 0.3 (0.0-1.5) 12/31/20 02:14 ABG Sodium 123.2 mmol/L (136.0-145.0) L 12/30/20 03:31 ABG Potassium 3.7 mmol/L (3.40-4.50) 12/31/20 02:14 ABG Chloride 95.0 mmol/L (98-107) L 12/31/20 02:14 ABG Glucose 108 mg/dL (65-95) H 12/31/20 02:14 Oxyhemoglobin 95.2 % (95.0-99.0) 12/20/20 21:30 Carboxyhemoglobin 1.7 (0.5-1.5) H 12/31/20 02:14 FiO2 100 % 12/20/20 21:30 FiO2 % 60.0 12/31/20 02:14 Sodium 126 mmol/L (137-145) L 12/31/20 04:40 Potassium 3.8 mmol/L (3.6-5.0) 12/31/20 04:40 Chloride 90.3 mmol/L (98-107) L 12/31/20 04:40 Carbon Dioxide 20 mmol/L (22-30) L 12/31/20 04:40 Anion Gap 20 mmol/L 12/31/20 04:40 BUN 70 mg/dL (9-20) H 12/31/20 04:40 Creatinine 4.3 mg/dL (0.8-1.3) H 12/31/20 04:40 Estimated GFR 14 ml/min 12/31/20 04:40 BUN/Creatinine Ratio 16 % 12/31/20 04:40 Glucose 209 mg/dL (75-100) H 12/31/20 04:40 POC Glucose 103 mg/dL (70-105) 12/31/20 05:00 Lactic Acid 1.70 mmol/L (0.7-2.0) 12/20/20 16:20 Calcium 6.6 mg/dL (8.4-10.2) L 12/31/20 04:40 Ionized Calcium 3.3 mg/dL (4.8-5.6) L 12/27/20 14:40 Phosphorus 4.70 mg/dL (2.5-4.5) H 12/31/20 04:40 Magnesium 1.60 mg/dL (1.7-2.3) L 12/31/20 04:40 Total Bilirubin 0.50 mg/dL (0.1-1.2) 12/28/20 07:28 AST 144 units/L (5-40) H 12/28/20 07:28 ALT 33 units/L (7-56) 12/28/20 07:28 Alkaline Phosphatase 90 units/L (35-129) 12/28/20 07:28 Troponin T < 0.010 ng/mL (0.00-0.029) 12/20/20 13:58 Total Protein 4.8 g/dL (6.3-8.2) L 12/28/20 07:28 Albumin 1.3 g/dL (3.9-5) L 12/28/20 07:28 Albumin/Globulin Ratio 0.4 % 12/28/20 07:28 Triglycerides 157 mg/dL (2-149) H 12/31/20 04:40 Arterial Blood Glucose 108 mg/dL (65-95) H 12/31/20 02:14 Arterial Blood Ionized Calcium 3.7 mg/dL (4.6-5.3) L 12/31/20 02:14 Urine Color Yellow (Yellow) 12/23/20 12:15 Urine Turbidity Cloudy (Clear) 12/23/20 12:15 Urine pH 5.0 (5.0-7.0) 12/23/20 12:15 Ur Specific [place] 1.019 (1.003-1.030) 12/23/20 12:15 Urine Protein <15 mg/dl mg/dL (Negative) 12/23/20 12:15 Urine Glucose (UA) Neg mg/dL (Negative) 12/23/20 12:15 Urine Ketones Neg mg/dL (Negative) 12/23/20 12:15 Urine Blood Sm (Negative) 12/23/20 12:15 Urine Nitrite Neg (Negative) 12/23/20 12:15 Urine Bilirubin Neg (Negative) 12/23/20 12:15 Urine Urobilinogen < 2.0 mg/dL (<2.0) 12/23/20 12:15 Ur Leukocyte Esterase Neg (Negative) 12/23/20 12:15 Urine WBC (Auto) 5.0 /HPF (0.0-6.0) 12/23/20 12:15 Urine RBC (Auto) 2.0 /HPF (0.0-6.0) 12/23/20 12:15 U Epithel Cells (Auto) < 1.0 /HPF (0-13.0) 12/20/20 Unknown Urine Bacteria (Auto) 1+ /HPF (Negative) 12/23/20 12:15 Triple Phos Crystals 2+ 12/23/20 12:15 Hyaline Casts 19 /LPF 12/20/20 Unknown Urine Mucus Few /HPF 12/23/20 12:15 Urine Eosinophils None seen (None Seen) 12/23/20 12:15 Urine Creatinine 78.1 mg/dL (0.1-20.0) H 12/23/20 12:15 Urine Sodium 13 mmol/L 12/23/20 12:15 Fraction Sodium Excret 0.2 12/23/20 12:15 Random Vancomycin 7.9 ug/mL (0-40.0) 12/23/20 12:15 Coronavirus (PCR) Negative (Negative) 12/21/20 Unknown Hepatitis A IgM Ab Non-reactive (NonReactive) 12/30/20 14:40 Hep Bs Antigen Non-reactive (Negative) 12/30/20 14:40 Hep B Core IgM Ab Non-reactive (NonReactive) 12/30/20 14:40 Hepatitis C Antibody Non-reactive (NonReactive) 12/30/20 14:40 Blood Type A NEGATIVE 12/29/20 05:20 Antibody Screen Negative 12/29/20 05:20 [place]/IV: Voiding Method Indwelling Catheter Active Medications - Current Medications Current Medications: Generic Name Dose Route Start Last Admin Trade Name Freq PRN Reason Stop Dose Admin Acetaminophen 650 mg 12/21/20 11:51 12/25/20 20:35 Acetaminophen 650 Mg Rect Supp MT 650 mg Q4H PRN Administration TEMP >/=100.4 Bisacodyl 10 mg 12/30/20 11:00 12/31/20 09:49 Bisacodyl 10 Mg Rect Supp MT 10 mg QDAY ASCENCION Administration Dextrose 50 ml 12/24/20 10:49 Dextrose 50% In Water (25gm) 50 Ml Syringe IV Q30MIN PRN Hypoglycemia Protocol Famotidine 20 mg 12/26/20 10:00 12/31/20 09:49 Famotidine 20 Mg/2 Ml Inj IV 20 mg DAILY ASCENCION Administration Fentanyl 50 mcg 12/20/20 21:58 12/21/20 03:46 Fentanyl 100 Mcg/2 Ml Inj IV 50 mcg Q10MIN PRN Administration ANALGESIA Hydrophilic Ointment 1 applic 12/20/20 21:58 Lip Therapy Vaseline TP Q2HR PRN Dry Lips Fentanyl Citrate 2,000 mcg in 100 mls @ 6.01 mls/hr 12/20/20 22:00 12/31/20 06:27 Fentanyl Drip Premix IV 4 mcg/kg/hr TITR ASCENCION 24.04 mls/hr Administration Protocol 1 MCG/KG/HR Propofol 1,000 mg in 100 mls @ 3.606 mls/hr 12/20/20 22:00 12/31/20 09:50 Diprivan 10 Mg/Ml IV 25 mcg/kg/min TITR ASCENCION 18.03 mls/hr Administration Protocol 5 MCG/KG/MIN NORepinephrine/NS 8 MG-250 ML 8 mg in 250 mls @ 3.75 mls/hr 12/21/20 09:00 12/31/20 09:06 Norepinephrine/Ns 8 Mg-250 Ml (Double Conc) IV 0 mcg/min TITRATE ASCENCION 0 mls/hr Titration Protocol 2 MCG/MIN Vasopressin 20 unit/ Sodium 101 mls @ 9.09 mls/hr 12/24/20 09:00 12/31/20 05:24 Chloride IV 0.03 units/min TITR ASCENCION 9.09 mls/hr Administration Protocol 0.03 UNITS/MIN Piperacillin Sod/Tazobactam Sod 4.5 gm in 100 mls @ 200 mls/hr 12/26/20 18:00 12/31/20 05:24 Zosyn/Ns 4.5gm/100ml IV 200 mls/hr Q12H ASCENCION Administration Protocol Fluconazole 200 mg in 100 mls @ 100 mls/hr 12/26/20 10:00 12/31/20 09:49 Diflucan IV 100 mls/hr Q24H [facility] Administration Protocol Sodium Chloride 100 mls @ 999 mls/hr 12/30/20 13:00 Nacl 0.9% IV MARILU PRN Hypotension Amino Acids/Electrolytes/Dextrose 2,400 mls @ 100 mls/hr 12/30/20 20:00 12/30/20 20:16 Tpn Adult IV 12/31/20 19:59 100 mls/hr DAILY@2000 [facility] Administration Protocol Insulin Human Regular 0 units 12/28/20 00:00 12/31/20 05:26 Insulin Regular, Human 100 Units/1 Ml SUB-Q Not Given Q6H [facility] Protocol Multi-Ingred Cream/Lotion/Oil/Oint 1 applic 12/20/20 21:58 Mineral Oil/Petrolatum, White Ophth Oint 3.5 Gm OU Q4HR PRN Dry Eye(s) Sodium Chloride 10 ml 12/20/20 22:00 12/30/20 21:27 Sodium Chloride 0.9% 10 Ml Flush Syringe IV 10 ml BID ASCENCION Administration Sodium Chloride 10 ml 12/20/20 16:42 Sodium Chloride 0.9% 10 Ml Flush Syringe IV PRN PRN LINE FLUSH Nutrition/Malnutrition Assess - Dietary Evaluation Nutrition/Malnutrition Findings: Nutrition Notes Start: 12/21/20 09:06 Freq: Status: Active Protocol: Document 12/31/20 09:48 CW (Rec: 12/31/20 09:54 CW [id number]) Nutrition Notes Initial or Follow up Reassessment Current Diagnosis Coronary Artery Disease, Hypertension,Small Bowel Obstruction,Hyperlipidemia Other Pertinent Diagnosis gangrenous small bowel, s/p small bowel ressection, peritonitis Current Diet TPN at 100 ml/hr Height 6 ft Weight 143.9 kg [place] Body Weight (kg) 80.90 BMI 43.0 Weight Status Morbidly Obese Burn Absent Trauma Absent GI Symptoms Other Current % PO Negligible Minimum of two criteria No Fluid Accumulation Mild (non-severe) #2 Nutrition Diagnosis Increased nutrient needs ( specify in comment below) Diagnosis Progress(for reassessment Continues documentation) #1 Nutrition Diagnosis Inadequate oral intake Diagnosis Progress(for reassessment Continues documentation) Is patient on ventilator? Yes Is Patient Ambulatory and/or Out of Bed No REE-([facility]-confined to bed) 2754.336 Kcal/Kg value to use for calculation 14 Approximate Energy Requirements Using 2015 kcal/Kg Calculation Used for Recommendations Kcal/kg Additional Notes Pro needs >2g/kg IBW: >162g/ day Fluid needs per MD Nutrition Intervention Change Diet Order: Continue CPN Kcal 1,680 Protein (gm) 80 Carbohydrates (gm) 400 Fat (gm) 0 Fluid (mL) 2,400 Fiber (gm) 0 Goal #1 Meet needs as best as possible via CPN Anticipated Discharge Needs: Unable to determine at this time Follow-Up By: 01/01/21 Additional Comments Labs in am: BMP, Mg, Phos
--- NOTE | 2020-12-31 10:38 | Progress Note ---
Assessment and Plan Cultures: 12/20/2020 sputum culture: Mold 12/20/2020 blood culture: No growth 12/20/2020 urine culture: Usual skin giorgio A/P: 60-year-old male with obesity, hypertension, tobacco abuse, coronary artery disease, admitted to the hospital on 12/20/2020 with: #Septic shock: Secondary to intra-abdominal source, peritonitis. Patient with necrotic bowel secondary to incarcerated ventral hernia. Status post exploratory laparotomy, extensive adhesiolysis, small bowel resection and peritoneal lavage along with ABThera VAC placement on 12/20/2020, replacement on 12/29/2020 with small bowel resection and anastomosis. Remains on pressors. #JONI: Renally dose antibiotics. Requiring HD per nephrology. #Morbid obesity #Sputum with mold: likely colonization/contaminant. Isolate sent to reference lab. Recs: -continue renally dosed Zosyn, Fluconazole 200 mg daily -continue antibiotics until 5 days post his final surgery depending n clinical course -monitor pressor requirements and WBC Lissette Rizzo MD, FACP [facility] O: [phone] F: [phone] Subjective Date of service: 12/31/20 Principal diagnosis: SBO and necrosis of large part of small intestine Interval history: Afebrile. Remains on the vent. On pressors. Objective - Exam Narrative Exam: Physical Exam: Constitutional: sedated, intubated, on the vent Head, Ears, Nose: Normocephalic, atraumatic. External ears, nose normal Eyes: Conjunctivae/corneas clear. No icterus. No ptosis. Neck: intubated Oral: intubated Cardiovascular: S1, S2 + Respiratory: AE fair bilaterally and equal GI: ABThera VAC present, bowel sounds hypo Musculoskeletal: No pedal edema, no cyanosis. Skin: No rash or abscess Hem/Lymphatic: No palpable cervical or supraclavicular nodes. No lymphangitis Psych: no agitation Neurological: sedated, intubated, on the vent, exam limited - Constitutional Vitals: Vital Signs Temp Pulse Resp BP Pulse Ox 98.1 F 88 25 H 119/57 98 12/31/20 08:00 12/31/20 07:33 12/31/20 05:15 12/31/20 07:33 12/31/20 07:33 Temperature -Last 24 Hours Temperature 98.1 F Temperature 98.4 F Temperature 98.4 F Temperature 98.9 F Temperature 98.5 F Temperature 98.3 F Temperature 98.9 F Temperature 98.2 F - Labs CBC & Chem 7: 12/29/20 05:20 12/31/20 04:40 Labs: Abnormal lab results 12/27/20 12/30/20 12/30/20 Range/Units 14:40 17:39 22:45 ABG pH (7.320-7.450) ABG Hemoglobin (12.0-17.5) ABG Oxyhemoglobin (94-98) ABG Chloride (98-107) mmol/L ABG Glucose (65-95) mg/dL Carboxyhemoglobin (0.5-1.5) Sodium (137-145) mmol/L Chloride (98-107) mmol/L Carbon Dioxide (22-30) mmol/L BUN (9-20) mg/dL Creatinine (0.8-1.3) mg/dL Glucose (75-100) mg/dL POC Glucose 134 H 109 H (70-105) mg/dL Calcium (8.4-10.2) mg/dL Ionized Calcium 3.3 L (4.8-5.6) mg/dL Phosphorus (2.5-4.5) mg/dL Magnesium (1.7-2.3) mg/dL Triglycerides (2-149) mg/dL Arterial Blood Glucose (65-95) mg/dL Arterial Blood Ionized Calcium (4.6-5.3) mg/dL 12/31/20 12/31/20 Range/Units 02:14 04:40 ABG pH 7.267 L (7.320-7.450) ABG Hemoglobin 8.0 L (12.0-17.5) ABG Oxyhemoglobin 93.7 L (94-98) ABG Chloride 95.0 L (98-107) mmol/L ABG Glucose 108 H (65-95) mg/dL Carboxyhemoglobin 1.7 H (0.5-1.5) Sodium 126 L (137-145) mmol/L Chloride 90.3 L (98-107) mmol/L Carbon Dioxide 20 L (22-30) mmol/L BUN 70 H (9-20) mg/dL Creatinine 4.3 H (0.8-1.3) mg/dL Glucose 209 H (75-100) mg/dL POC Glucose (70-105) mg/dL Calcium 6.6 L (8.4-10.2) mg/dL Ionized Calcium (4.8-5.6) mg/dL Phosphorus 4.70 H (2.5-4.5) mg/dL Magnesium 1.60 L (1.7-2.3) mg/dL Triglycerides 157 H (2-149) mg/dL Arterial Blood Glucose 108 H (65-95) mg/dL Arterial Blood Ionized Calcium 3.7 L (4.6-5.3) mg/dL
--- NOTE | 2020-12-31 15:40 | Progress Note ---
Assessment and Plan POD#12 s/p ex lap and small bowel resection for necrotic bowel secondary to incarcerated ventral hernia left with open abdomen. POD#9 s/p abdominal exploration with segmental small bowel resection. abthera placement POD#5 s/p abdominal exploration, small bowel resection for ischemia, abthera placement POD#2 s/p abdominal exploration with small bowel anastamosis and abthera vac placement Tachycardia resolved, requiring less pressors compared to a few days ago. Septic with renal insufficiency requiring dialysis. Continue supportive care, since abdomen is open, will take to OR tomorrow for abdominal wash out and bowel examination. If anastamosis looks viable and no other issues plan to close his abdomen. Prognosis is guarded. Subjective Date of service: 12/31/20 Narrative: no acute events overnight. Objective Vital Signs - 12hr 12/31/20 12/31/20 12/31/20 03:45 04:00 04:15 Temperature Pulse Rate 93 H 91 H 92 H Pulse Rate [ From Monitor] Respiratory Rate Respiratory Rate [abd] Respiratory Rate [chest pain] Blood Pressure 116/51 115/53 114/49 O2 Sat by Pulse 97 99 98 Oximetry 12/31/20 12/31/20 12/31/20 04:30 04:45 05:00 Temperature Pulse Rate 94 H 98 H 97 H Pulse Rate [ From Monitor] Respiratory Rate Respiratory Rate [abd] Respiratory Rate [chest pain] Blood Pressure 115/57 121/63 113/56 O2 Sat by Pulse 98 96 97 Oximetry 12/31/20 12/31/20 12/31/20 05:15 05:30 05:45 Temperature Pulse Rate 98 H 99 H 96 H Pulse Rate [ From Monitor] Respiratory Rate Respiratory 25 H Rate [abd] Respiratory 25 H Rate [chest pain] Blood Pressure 122/51 111/50 103/49 O2 Sat by Pulse 95 96 95 Oximetry 12/31/20 12/31/20 12/31/20 06:00 06:15 06:30 Temperature Pulse Rate 95 H 95 H 94 H Pulse Rate [ From Monitor] Respiratory Rate Respiratory Rate [abd] Respiratory Rate [chest pain] Blood Pressure 107/48 102/45 106/48 O2 Sat by Pulse 96 96 97 Oximetry 12/31/20 12/31/20 12/31/20 06:46 07:00 07:15 Temperature Pulse Rate 90 88 87 Pulse Rate [ From Monitor] Respiratory Rate Respiratory Rate [abd] Respiratory Rate [chest pain] Blood Pressure 124/58 121/55 121/57 O2 Sat by Pulse 98 97 99 Oximetry 12/31/20 12/31/20 12/31/20 07:30 07:33 07:45 Temperature Pulse Rate 88 88 92 H Pulse Rate [ From Monitor] Respiratory Rate Respiratory Rate [abd] Respiratory Rate [chest pain] Blood Pressure 119/57 119/57 132/65 O2 Sat by Pulse 98 98 95 Oximetry 12/31/20 12/31/20 12/31/20 08:00 08:15 08:30 Temperature 98.1 F Pulse Rate 93 H 95 H 93 H Pulse Rate [ 93 H From Monitor] Respiratory 25 H Rate Respiratory Rate [abd] Respiratory Rate [chest pain] Blood Pressure 116/53 126/55 109/53 O2 Sat by Pulse 95 95 95 Oximetry 12/31/20 12/31/20 12/31/20 08:45 09:00 09:15 Temperature Pulse Rate 91 H 92 H 96 H Pulse Rate [ From Monitor] Respiratory Rate Respiratory 25 H Rate [abd] Respiratory 25 H Rate [chest pain] Blood Pressure 117/49 125/58 114/48 O2 Sat by Pulse 95 93 95 Oximetry 12/31/20 12/31/20 12/31/20 09:30 09:45 10:00 Temperature Pulse Rate 96 H 95 H 100 H Pulse Rate [ From Monitor] Respiratory Rate Respiratory Rate [abd] Respiratory Rate [chest pain] Blood Pressure 105/51 114/54 125/72 O2 Sat by Pulse 96 96 92 Oximetry 12/31/20 12/31/20 12/31/20 10:15 10:30 10:46 Temperature Pulse Rate 100 H 99 H 99 H Pulse Rate [ From Monitor] Respiratory Rate Respiratory Rate [abd] Respiratory Rate [chest pain] Blood Pressure 131/61 122/51 111/50 O2 Sat by Pulse 94 94 94 Oximetry 12/31/20 12/31/20 12/31/20 11:00 11:15 11:30 Temperature Pulse Rate 96 H 94 H 94 H Pulse Rate [ From Monitor] Respiratory Rate Respiratory Rate [abd] Respiratory Rate [chest pain] Blood Pressure 104/44 103/47 105/52 O2 Sat by Pulse 95 96 94 Oximetry 12/31/20 12/31/20 12/31/20 11:45 11:47 12:00 Temperature 98.9 F Pulse Rate 91 H 91 H 97 H Pulse Rate [ 97 H From Monitor] Respiratory 28 H Rate Respiratory Rate [abd] Respiratory Rate [chest pain] Blood Pressure 110/49 110/49 122/62 O2 Sat by Pulse 93 94 95 Oximetry 12/31/20 12/31/20 12/31/20 12:15 12:30 12:45 Temperature Pulse Rate 97 H 99 H 99 H Pulse Rate [ From Monitor] Respiratory Rate Respiratory Rate [abd] Respiratory Rate [chest pain] Blood Pressure 129/64 126/64 112/60 O2 Sat by Pulse 94 95 95 Oximetry 12/31/20 12/31/20 12/31/20 13:00 13:15 13:30 Temperature Pulse Rate 99 H 101 H 99 H Pulse Rate [ From Monitor] Respiratory Rate Respiratory 25 H Rate [abd] Respiratory 25 H Rate [chest pain] Blood Pressure 118/55 123/56 108/53 O2 Sat by Pulse 94 93 94 Oximetry 12/31/20 12/31/20 12/31/20 13:45 14:00 14:15 Temperature Pulse Rate 101 H 98 H 96 H Pulse Rate [ From Monitor] Respiratory Rate Respiratory Rate [abd] Respiratory Rate [chest pain] Blood Pressure 100/55 118/54 108/54 O2 Sat by Pulse 92 93 95 Oximetry 12/31/20 12/31/20 12/31/20 14:30 14:45 15:00 Temperature Pulse Rate 95 H 94 H Pulse Rate [ From Monitor] Respiratory Rate Respiratory Rate [abd] Respiratory Rate [chest pain] Blood Pressure 98/51 112/51 112/54 O2 Sat by Pulse 93 93 94 Oximetry 12/31/20 12/31/20 15:16 15:19 Temperature Pulse Rate 98 H 100 H Pulse Rate [ From Monitor] Respiratory 19 Rate Respiratory Rate [abd] Respiratory Rate [chest pain] Blood Pressure 129/64 129/64 O2 Sat by Pulse 92 91 Oximetry - General physical appearance no distress, no pain - Respiratory normal expansion, normal respiratory effort, other (intubated on vent) - Abdomen soft, other (wound vac in place with serous drainage, NGT bilious) - Labs 12/29/20 05:20 12/31/20 04:40 Diabetes panel 12/31/20 Range/Units 04:40 Sodium 126 L (137-145) mmol/L Potassium 3.8 (3.6-5.0) mmol/L Chloride 90.3 L (98-107) mmol/L Carbon Dioxide 20 L (22-30) mmol/L BUN 70 H (9-20) mg/dL Creatinine 4.3 H (0.8-1.3) mg/dL Glucose 209 H (75-100) mg/dL Calcium 6.6 L (8.4-10.2) mg/dL Triglycerides 157 H (2-149) mg/dL Calcium panel 12/31/20 Range/Units 04:40 Calcium 6.6 L (8.4-10.2) mg/dL Phosphorus 4.70 H (2.5-4.5) mg/dL Pituitary panel 12/31/20 Range/Units 04:40 Sodium 126 L (137-145) mmol/L Potassium 3.8 (3.6-5.0) mmol/L Chloride 90.3 L (98-107) mmol/L Carbon Dioxide 20 L (22-30) mmol/L BUN 70 H (9-20) mg/dL Creatinine 4.3 H (0.8-1.3) mg/dL Glucose 209 H (75-100) mg/dL Calcium 6.6 L (8.4-10.2) mg/dL Adrenal panel 12/31/20 Range/Units 04:40 Sodium 126 L (137-145) mmol/L Potassium 3.8 (3.6-5.0) mmol/L Chloride 90.3 L (98-107) mmol/L Carbon Dioxide 20 L (22-30) mmol/L BUN 70 H (9-20) mg/dL Creatinine 4.3 H (0.8-1.3) mg/dL Glucose 209 H (75-100) mg/dL Calcium 6.6 L (8.4-10.2) mg/dL
--- NOTE | 2020-12-31 16:32 | Progress Note ---
Assessment and Plan Imp: 1. Ischemic bowel with acute peritonitis 2. Severe sepsis with shock 3. Acute respiratory failure, hypoxia 4. JONI 5. Morbid obesity 6. Lactic acidosis Rec: 1. Cont. on ventilator at current settings and monitor ABGs closely 2. ABX per ID 3. For abdominal closure tomorrow per surgery 4. Wean pressors to keep MAP > 65 5. TPN, GI/DVT PPx 6. Electrolyte correction via TPN and HD; for HD today 7. Further plans pending clinical course 8. Prognosis guarded; no family present CCt 31 minutes Subjective Date of service: 12/31/20 Principal diagnosis: SBO and necrosis of large part of small intestine Interval history: No events. Sedated. On Pressors, Vasopressin and small dose of Levophed. On ventilator. Active Medications Acetaminophen (Acetaminophen 650 Mg Rect Supp) [address] Q4H PRN PRN Reason: TEMP >/=100.4 Last Admin: 12/25/20 20:35 Dose: 650 mg Documented by: Bisacodyl (Bisacodyl 10 Mg Rect Supp) [address] QDAY ASCENCION Last Admin: 12/31/20 09:49 Dose: 10 mg Documented by: Dextrose (Dextrose 50% In Water (25gm) 50 Ml Syringe) 50 ml IV Q30MIN PRN; Protocol PRN Reason: Hypoglycemia Famotidine (Famotidine 20 Mg/2 Ml Inj) 20 mg IV DAILY ASCENCION Last Admin: 12/31/20 09:49 Dose: 20 mg Documented by: Fentanyl (Fentanyl 100 Mcg/2 Ml Inj) 50 mcg IV Q10MIN PRN PRN Reason: ANALGESIA Last Admin: 12/21/20 03:46 Dose: 50 mcg Documented by: Hydrophilic Ointment (Lip Therapy Vaseline) 1 applic TP Q2HR PRN PRN Reason: Dry Lips Fentanyl Citrate (Fentanyl Drip Premix) 2,000 mcg in 100 mls @ 6.01 mls/hr IV TITR ASCENCION; Protocol Last Admin: 12/31/20 13:37 Dose: 4 mcg/kg/hr, 24.04 mls/hr Documented by: Propofol (Diprivan 10 Mg/Ml) 1,000 mg in 100 mls @ 3.606 mls/hr IV TITR ASCENCION; Protocol Last Admin: 12/31/20 13:48 Dose: 30 mcg/kg/min, 21.636 mls/hr Documented by: NORepinephrine/NS 8 MG-250 ML (Norepinephrine/Ns 8 Mg-250 Ml (Double Conc)) 8 mg in 250 mls @ 3.75 mls/hr IV TITRATE ASCENCION; Protocol Last Titration: 12/31/20 15:34 Dose: 0 mcg/min, 0 mls/hr Documented by: Vasopressin 20 unit/ Sodium (Chloride) 101 mls @ 9.09 mls/hr IV TITR ASCENCION; Protocol Last Admin: 12/31/20 15:59 Dose: 0.03 units/min, 9.09 mls/hr Documented by: Piperacillin Sod/Tazobactam Sod (Zosyn/Ns 4.5gm/100ml) 4.5 gm in 100 mls @ 200 mls/hr IV Q12H ASCENCION; Protocol Last Admin: 12/31/20 05:24 Dose: 200 mls/hr Documented by: Fluconazole (Diflucan) 200 mg in 100 mls @ 100 mls/hr IV Q24H ASCENCION; Protocol Last Infusion: 12/31/20 12:18 Dose: Infused Documented by: Sodium Chloride (Nacl 0.9%) 100 mls @ 999 mls/hr IV MARILU PRN PRN Reason: Hypotension Amino Acids/Electrolytes/Dextrose (Tpn Adult) 2,400 mls @ 100 mls/hr IV DAILY@1999 ASCENCION; Protocol Stop: 12/31/20 19:59 Last Admin: 12/30/20 20:16 Dose: 100 mls/hr Documented by: Amino Acids/Electrolytes/Dextrose (Tpn Adult) 2,400 mls @ 100 mls/hr IV DAILY@1999 ASCENCION; Protocol Stop: 01/01/21 19:59 Insulin Human Regular (Insulin Regular, Human 100 Units/1 Ml) 0 units SUB-Q Q6H ASCENCION; Protocol Last Admin: 12/31/20 13:00 Dose: Not Given Documented by: Multi-Ingred Cream/Lotion/Oil/Oint (Mineral Oil/Petrolatum, White Ophth Oint 3.5 Gm) 1 applic OU Q4HR PRN PRN Reason: Dry Eye(s) Sodium Chloride (Sodium Chloride 0.9% 10 Ml Flush Syringe) 10 ml IV BID ASCENCION Last Admin: 12/31/20 12:18 Dose: 10 ml Documented by: Sodium Chloride (Sodium Chloride 0.9% 10 Ml Flush Syringe) 10 ml IV PRN PRN PRN Reason: LINE FLUSH Objective Vital Signs - 12hr 12/31/20 12/31/20 12/31/20 04:30 04:45 05:00 Temperature Pulse Rate 94 H 98 H 97 H Pulse Rate [ From Monitor] Respiratory Rate Respiratory Rate [abd] Respiratory Rate [chest pain] Blood Pressure 115/57 121/63 113/56 O2 Sat by Pulse 98 96 97 Oximetry 12/31/20 12/31/20 12/31/20 05:15 05:30 05:45 Temperature Pulse Rate 98 H 99 H 96 H Pulse Rate [ From Monitor] Respiratory Rate Respiratory 25 H Rate [abd] Respiratory 25 H Rate [chest pain] Blood Pressure 122/51 111/50 103/49 O2 Sat by Pulse 95 96 95 Oximetry 12/31/20 12/31/20 12/31/20 06:00 06:15 06:30 Temperature Pulse Rate 95 H 95 H 94 H Pulse Rate [ From Monitor] Respiratory Rate Respiratory Rate [abd] Respiratory Rate [chest pain] Blood Pressure 107/48 102/45 106/48 O2 Sat by Pulse 96 96 97 Oximetry 12/31/20 12/31/20 12/31/20 06:46 07:00 07:15 Temperature Pulse Rate 90 88 87 Pulse Rate [ From Monitor] Respiratory Rate Respiratory Rate [abd] Respiratory Rate [chest pain] Blood Pressure 124/58 121/55 121/57 O2 Sat by Pulse 98 97 99 Oximetry 12/31/20 12/31/20 12/31/20 07:30 07:33 07:45 Temperature Pulse Rate 88 88 92 H Pulse Rate [ From Monitor] Respiratory Rate Respiratory Rate [abd] Respiratory Rate [chest pain] Blood Pressure 119/57 119/57 132/65 O2 Sat by Pulse 98 98 95 Oximetry 12/31/20 12/31/20 12/31/20 08:00 08:15 08:30 Temperature 98.1 F Pulse Rate 93 H 95 H 93 H Pulse Rate [ 93 H From Monitor] Respiratory 25 H Rate Respiratory Rate [abd] Respiratory Rate [chest pain] Blood Pressure 116/53 126/55 109/53 O2 Sat by Pulse 95 95 95 Oximetry 12/31/20 12/31/20 12/31/20 08:45 09:00 09:15 Temperature Pulse Rate 91 H 92 H 96 H Pulse Rate [ From Monitor] Respiratory Rate Respiratory 25 H Rate [abd] Respiratory 25 H Rate [chest pain] Blood Pressure 117/49 125/58 114/48 O2 Sat by Pulse 95 93 95 Oximetry 12/31/20 12/31/20 12/31/20 09:30 09:45 10:00 Temperature Pulse Rate 96 H 95 H 100 H Pulse Rate [ From Monitor] Respiratory Rate Respiratory Rate [abd] Respiratory Rate [chest pain] Blood Pressure 105/51 114/54 125/72 O2 Sat by Pulse 96 96 92 Oximetry 12/31/20 12/31/20 12/31/20 10:15 10:30 10:46 Temperature Pulse Rate 100 H 99 H 99 H Pulse Rate [ From Monitor] Respiratory Rate Respiratory Rate [abd] Respiratory Rate [chest pain] Blood Pressure 131/61 122/51 111/50 O2 Sat by Pulse 94 94 94 Oximetry 12/31/20 12/31/20 12/31/20 11:00 11:15 11:30 Temperature Pulse Rate 96 H 94 H 94 H Pulse Rate [ From Monitor] Respiratory Rate Respiratory Rate [abd] Respiratory Rate [chest pain] Blood Pressure 104/44 103/47 105/52 O2 Sat by Pulse 95 96 94 Oximetry 12/31/20 12/31/20 12/31/20 11:45 11:47 12:00 Temperature 98.9 F Pulse Rate 91 H 91 H 97 H Pulse Rate [ 97 H From Monitor] Respiratory 28 H Rate Respiratory Rate [abd] Respiratory Rate [chest pain] Blood Pressure 110/49 110/49 122/62 O2 Sat by Pulse 93 94 95 Oximetry 12/31/20 12/31/20 12/31/20 12:15 12:30 12:45 Temperature Pulse Rate 97 H 99 H 99 H Pulse Rate [ From Monitor] Respiratory Rate Respiratory Rate [abd] Respiratory Rate [chest pain] Blood Pressure 129/64 126/64 112/60 O2 Sat by Pulse 94 95 95 Oximetry 12/31/20 12/31/20 12/31/20 13:00 13:15 13:30 Temperature Pulse Rate 99 H 101 H 99 H Pulse Rate [ From Monitor] Respiratory Rate Respiratory 25 H Rate [abd] Respiratory 25 H Rate [chest pain] Blood Pressure 118/55 123/56 108/53 O2 Sat by Pulse 94 93 94 Oximetry 12/31/20 12/31/20 12/31/20 13:45 14:00 14:15 Temperature Pulse Rate 101 H 98 H 96 H Pulse Rate [ From Monitor] Respiratory Rate Respiratory Rate [abd] Respiratory Rate [chest pain] Blood Pressure 100/55 118/54 108/54 O2 Sat by Pulse 92 93 95 Oximetry 12/31/20 12/31/20 12/31/20 14:30 14:45 15:00 Temperature Pulse Rate 95 H 94 H Pulse Rate [ From Monitor] Respiratory Rate Respiratory Rate [abd] Respiratory Rate [chest pain] Blood Pressure 98/51 112/51 112/54 O2 Sat by Pulse 93 93 94 Oximetry 12/31/20 12/31/20 12/31/20 15:16 15:19 15:30 Temperature Pulse Rate 98 H 100 H 101 H Pulse Rate [ From Monitor] Respiratory 19 19 Rate Respiratory Rate [abd] Respiratory Rate [chest pain] Blood Pressure 129/64 129/64 129/57 O2 Sat by Pulse 92 91 96 Oximetry 12/31/20 12/31/20 15:45 16:00 Temperature Pulse Rate 101 H 101 H Pulse Rate [ 85 From Monitor] Respiratory 17 18 Rate Respiratory Rate [abd] Respiratory Rate [chest pain] Blood Pressure 117/54 122/54 O2 Sat by Pulse 93 95 Oximetry Constitutional: other (critically ill on ventilator) Eyes: non-icteric ENT: oropharynx moist Neck: supple Effort: normal Ascultation: Bilateral: other (coarse BS bilaterally) Cardiovascular: other (tachy, RR; no mrg) Gastrointestinal: other (abdomen open) Integumentary: normal Extremities: no cyanosis, no edema, pink and warm Neurologic: other (sedated) CBC and BMP: 12/29/20 05:20 12/31/20 04:40 ABG, PT/INR, D-dimer: ABG ABG pH 7.267 (7.320-7.450) L 12/31/20 02:14 POC ABG pCO2 46.7 mmHg (32.0-48.0) 12/31/20 02:14 ABG pCO2 51.0 mm Hg 12/20/20 21:30 POC ABG pO2 90.1 mmHg (83-108) 12/31/20 02:14 ABG pO2 104.4 mm Hg (80.0-90.0) H 12/20/20 21:30 POC ABG HCO3 20.8 12/31/20 02:14 ABG O2 Saturation 95.6 (0-100) 12/31/20 02:14 Abnormal lab findings: Abnormal Labs 12/20/20 12/20/20 12/20/20 13:58 13:58 13:58 WBC 41.1 H* RBC 5.59 H Hgb 16.2 H Hct 47.7 H MCHC RDW 15.5 H Plt Count 486 H Seg Neuts % (Manual) Lymphocytes % (Manual) Seg Neutrophils # Man Lymphocytes # (Manual) Monocytes # (Manual) APTT ABG pH POC ABG pO2 ABG pO2 ABG Hemoglobin ABG Oxyhemoglobin ABG Sodium ABG Potassium ABG Chloride ABG Glucose Carboxyhemoglobin Sodium 130 L Potassium Chloride 80.7 L Carbon Dioxide BUN 37 H Creatinine Glucose 101 H POC Glucose Lactic Acid 3.20 H* Calcium Ionized Calcium Phosphorus Magnesium AST Alkaline Phosphatase 142 H Total Protein 6.2 L Albumin 2.2 L Triglycerides Arterial Blood Glucose Arterial Blood Ionized Calcium Urine Creatinine 12/20/20 12/20/20 12/20/20 13:58 20:35 21:30 WBC RBC Hgb Hct MCHC RDW Plt Count Seg Neuts % (Manual) Lymphocytes % (Manual) Seg Neutrophils # Man Lymphocytes # (Manual) Monocytes # (Manual) APTT 49.4 H ABG pH 7.313 L POC ABG pO2 ABG pO2 104.4 H ABG Hemoglobin ABG Oxyhemoglobin ABG Sodium ABG Potassium ABG Chloride ABG Glucose Carboxyhemoglobin Sodium Potassium Chloride Carbon Dioxide BUN Creatinine Glucose POC Glucose 122 H Lactic Acid Calcium Ionized Calcium Phosphorus Magnesium AST Alkaline Phosphatase Total Protein Albumin Triglycerides Arterial Blood Glucose Arterial Blood Ionized Calcium Urine Creatinine 12/21/20 12/21/20 12/21/20 03:06 08:14 08:14 WBC 23.9 H RBC Hgb Hct MCHC RDW 15.7 H Plt Count Seg Neuts % (Manual) 91.0 H Lymphocytes % (Manual) 3.0 L Seg Neutrophils # Man 21.7 H Lymphocytes # (Manual) 0.7 L Monocytes # (Manual) 1.4 H APTT ABG pH 7.464 H POC ABG pO2 202.9 H ABG pO2 ABG Hemoglobin ABG Oxyhemoglobin ABG Sodium 133.7 L ABG Potassium ABG Chloride ABG Glucose 122 H Carboxyhemoglobin Sodium Potassium Chloride Carbon Dioxide BUN 46 H Creatinine Glucose 103 H POC Glucose Lactic Acid Calcium 6.6 L D Ionized Calcium Phosphorus Magnesium AST Alkaline Phosphatase Total Protein 5.4 L Albumin 2.3 L Triglycerides Arterial Blood Glucose 122 H Arterial Blood Ionized Calcium 3.5 L Urine Creatinine 12/21/20 12/21/20 12/22/20 17:18 21:28 04:45 WBC 22.9 H RBC Hgb Hct MCHC RDW 15.7 H Plt Count Seg Neuts % (Manual) Lymphocytes % (Manual) Seg Neutrophils # Man Lymphocytes # (Manual) Monocytes # (Manual) APTT ABG pH POC ABG pO2 ABG pO2 ABG Hemoglobin ABG Oxyhemoglobin ABG Sodium ABG Potassium ABG Chloride ABG Glucose Carboxyhemoglobin Sodium Potassium Chloride Carbon Dioxide BUN Creatinine Glucose POC Glucose 108 H Lactic Acid Calcium Ionized Calcium 4.1 L Phosphorus Magnesium AST Alkaline Phosphatase Total Protein Albumin Triglycerides Arterial Blood Glucose Arterial Blood Ionized Calcium Urine Creatinine 12/22/20 12/22/20 12/22/20 04:45 05:00 11:38 WBC RBC Hgb Hct MCHC RDW Plt Count Seg Neuts % (Manual) Lymphocytes % (Manual) Seg Neutrophils # Man Lymphocytes # (Manual) Monocytes # (Manual) APTT ABG pH 7.462 H POC ABG pO2 ABG pO2 ABG Hemoglobin ABG Oxyhemoglobin ABG Sodium ABG Potassium ABG Chloride ABG Glucose 118 H Carboxyhemoglobin Sodium 146 H Potassium Chloride Carbon Dioxide BUN 45 H Creatinine Glucose 116 H POC Glucose 115 H Lactic Acid Calcium 6.9 L Ionized Calcium Phosphorus Magnesium AST Alkaline Phosphatase Total Protein Albumin Triglycerides Arterial Blood Glucose 118 H Arterial Blood Ionized Calcium 3.8 L Urine Creatinine 12/22/20 12/23/20 12/23/20 23:26 04:43 04:45 WBC 22.2 H RBC Hgb Hct MCHC RDW 16.1 H Plt Count Seg Neuts % (Manual) Lymphocytes % (Manual) Seg Neutrophils # Man Lymphocytes # (Manual) Monocytes # (Manual) APTT ABG pH POC ABG pO2 ABG pO2 ABG Hemoglobin ABG Oxyhemoglobin ABG Sodium 147.4 H ABG Potassium ABG Chloride 112.0 H ABG Glucose 130 H Carboxyhemoglobin 0.4 L Sodium Potassium Chloride Carbon Dioxide BUN Creatinine Glucose POC Glucose 110 H Lactic Acid Calcium Ionized Calcium Phosphorus Magnesium AST Alkaline Phosphatase Total Protein Albumin Triglycerides Arterial Blood Glucose 130 H Arterial Blood Ionized Calcium 3.8 L Urine Creatinine 12/23/20 12/23/20 12/23/20 04:45 05:17 11:22 WBC RBC Hgb Hct MCHC RDW Plt Count Seg Neuts % (Manual) Lymphocytes % (Manual) Seg Neutrophils # Man Lymphocytes # (Manual) Monocytes # (Manual) APTT ABG pH POC ABG pO2 ABG pO2 ABG Hemoglobin ABG Oxyhemoglobin ABG Sodium ABG Potassium ABG Chloride ABG Glucose Carboxyhemoglobin Sodium 154 H D Potassium Chloride 110.9 H Carbon Dioxide BUN 54 H Creatinine 1.8 H Glucose 115 H POC Glucose 116 H 130 H Lactic Acid Calcium 7.0 L Ionized Calcium Phosphorus Magnesium AST Alkaline Phosphatase Total Protein Albumin Triglycerides Arterial Blood Glucose Arterial Blood Ionized Calcium Urine Creatinine 12/23/20 12/23/20 12/23/20 12:15 12:15 23:15 WBC RBC Hgb Hct MCHC RDW Plt Count Seg Neuts % (Manual) Lymphocytes % (Manual) Seg Neutrophils # Man Lymphocytes # (Manual) Monocytes # (Manual) APTT ABG pH POC ABG pO2 ABG pO2 ABG Hemoglobin ABG Oxyhemoglobin ABG Sodium ABG Potassium ABG Chloride ABG Glucose Carboxyhemoglobin Sodium 154 H Potassium Chloride Carbon Dioxide BUN Creatinine 1.5 H Glucose POC Glucose 132 H Lactic Acid Calcium Ionized Calcium Phosphorus Magnesium AST Alkaline Phosphatase Total Protein Albumin Triglycerides Arterial Blood Glucose Arterial Blood Ionized Calcium Urine Creatinine 78.1 H 12/24/20 12/24/20 12/24/20 04:19 04:30 04:30 WBC 18.3 H RBC Hgb Hct MCHC RDW 16.5 H Plt Count Seg Neuts % (Manual) Lymphocytes % (Manual) Seg Neutrophils # Man Lymphocytes # (Manual) Monocytes # (Manual) APTT ABG pH POC ABG pO2 ABG pO2 ABG Hemoglobin ABG Oxyhemoglobin ABG Sodium 149.7 H ABG Potassium ABG Chloride 116.0 H ABG Glucose 180 H Carboxyhemoglobin Sodium 155 H Potassium Chloride 116.1 H Carbon Dioxide BUN 52 H Creatinine 1.5 H Glucose 175 H POC Glucose Lactic Acid Calcium 6.8 L Ionized Calcium Phosphorus Magnesium 3.00 H AST Alkaline Phosphatase Total Protein 5.7 L Albumin 1.8 L Triglycerides Arterial Blood Glucose 180 H Arterial Blood Ionized Calcium 3.7 L Urine Creatinine 12/24/20 12/24/20 12/24/20 05:24 11:21 18:05 WBC RBC Hgb Hct MCHC RDW Plt Count Seg Neuts % (Manual) Lymphocytes % (Manual) Seg Neutrophils # Man Lymphocytes # (Manual) Monocytes # (Manual) APTT ABG pH POC ABG pO2 ABG pO2 ABG Hemoglobin ABG Oxyhemoglobin ABG Sodium ABG Potassium ABG Chloride ABG Glucose Carboxyhemoglobin Sodium Potassium Chloride Carbon Dioxide BUN Creatinine Glucose POC Glucose 153 H 154 H 133 H Lactic Acid Calcium Ionized Calcium Phosphorus Magnesium AST Alkaline Phosphatase Total Protein Albumin Triglycerides Arterial Blood Glucose Arterial Blood Ionized Calcium Urine Creatinine 12/25/20 12/25/20 12/25/20 04:00 07:00 07:00 WBC 17.6 H RBC Hgb Hct MCHC 31 L RDW 16.0 H Plt Count Seg Neuts % (Manual) Lymphocytes % (Manual) Seg Neutrophils # Man Lymphocytes # (Manual) Monocytes # (Manual) APTT ABG pH POC ABG pO2 ABG pO2 ABG Hemoglobin ABG Oxyhemoglobin ABG Sodium 152.5 H ABG Potassium ABG Chloride 119.0 H ABG Glucose 136 H Carboxyhemoglobin Sodium Potassium Chloride Carbon Dioxide BUN Creatinine Glucose POC Glucose Lactic Acid Calcium Ionized Calcium Phosphorus Magnesium 2.70 H AST Alkaline Phosphatase Total Protein Albumin Triglycerides Arterial Blood Glucose 136 H Arterial Blood Ionized Calcium 3.7 L Urine Creatinine 12/25/20 12/25/20 12/25/20 07:00 11:24 16:32 WBC RBC Hgb Hct MCHC RDW Plt Count Seg Neuts % (Manual) Lymphocytes % (Manual) Seg Neutrophils # Man Lymphocytes # (Manual) Monocytes # (Manual) APTT ABG pH POC ABG pO2 ABG pO2 ABG Hemoglobin ABG Oxyhemoglobin ABG Sodium ABG Potassium ABG Chloride ABG Glucose Carboxyhemoglobin Sodium 156 H Potassium Chloride 118.0 H Carbon Dioxide BUN 44 H Creatinine 1.7 H Glucose 126 H POC Glucose 110 H 126 H Lactic Acid Calcium 6.9 L Ionized Calcium Phosphorus Magnesium AST Alkaline Phosphatase Total Protein Albumin Triglycerides Arterial Blood Glucose Arterial Blood Ionized Calcium Urine Creatinine 12/25/20 12/25/20 12/26/20 18:18 23:23 03:30 WBC RBC Hgb Hct MCHC RDW Plt Count Seg Neuts % (Manual) Lymphocytes % (Manual) Seg Neutrophils # Man Lymphocytes # (Manual) Monocytes # (Manual) APTT ABG pH POC ABG pO2 ABG pO2 ABG Hemoglobin 11.8 L ABG Oxyhemoglobin ABG Sodium ABG Potassium 4.7 H ABG Chloride 114.0 H ABG Glucose 132 H Carboxyhemoglobin Sodium 151 H Potassium Chloride 114.3 H Carbon Dioxide BUN 51 H Creatinine 2.6 H D Glucose 122 H POC Glucose 115 H Lactic Acid Calcium 6.4 L Ionized Calcium Phosphorus Magnesium AST Alkaline Phosphatase Total Protein Albumin Triglycerides Arterial Blood Glucose 132 H Arterial Blood Ionized Calcium 3.6 L Urine Creatinine 12/26/20 12/26/20 12/26/20 04:55 06:01 06:01 WBC 21.6 H RBC Hgb Hct MCHC 31 L RDW 16.5 H Plt Count 136 L Seg Neuts % (Manual) Lymphocytes % (Manual) Seg Neutrophils # Man Lymphocytes # (Manual) Monocytes # (Manual) APTT ABG pH POC ABG pO2 ABG pO2 ABG Hemoglobin ABG Oxyhemoglobin ABG Sodium ABG Potassium ABG Chloride ABG Glucose Carboxyhemoglobin Sodium 173 H* D Potassium 6.1 H* D Chloride 137.0 H Carbon Dioxide BUN 73 H Creatinine 3.8 H Glucose 125 H POC Glucose 112 H Lactic Acid Calcium 6.2 L Ionized Calcium Phosphorus 5.70 H D Magnesium 2.90 H AST Alkaline Phosphatase Total Protein Albumin Triglycerides Arterial Blood Glucose Arterial Blood Ionized Calcium Urine Creatinine 12/26/20 12/26/20 12/26/20 08:33 11:19 22:00 WBC RBC Hgb Hct MCHC RDW Plt Count Seg Neuts % (Manual) Lymphocytes % (Manual) Seg Neutrophils # Man Lymphocytes # (Manual) Monocytes # (Manual) APTT ABG pH POC ABG pO2 ABG pO2 ABG Hemoglobin ABG Oxyhemoglobin ABG Sodium ABG Potassium ABG Chloride ABG Glucose Carboxyhemoglobin Sodium 147 H D Potassium 5.8 H D Chloride 108.8 H Carbon Dioxide 21 L BUN 68 H 68 H Creatinine 3.8 H 4.1 H Glucose 144 H 154 H POC Glucose 144 H Lactic Acid Calcium 6.5 L 5.8 L* Ionized Calcium Phosphorus Magnesium AST 215 H Alkaline Phosphatase Total Protein 4.7 L Albumin 1.5 L Triglycerides Arterial Blood Glucose Arterial Blood Ionized Calcium Urine Creatinine 12/26/20 12/26/20 12/27/20 23:13 Unknown 00:25 WBC RBC Hgb 11.1 L Hct MCHC RDW Plt Count Seg Neuts % (Manual) Lymphocytes % (Manual) Seg Neutrophils # Man Lymphocytes # (Manual) Monocytes # (Manual) APTT ABG pH POC ABG pO2 ABG pO2 ABG Hemoglobin ABG Oxyhemoglobin ABG Sodium ABG Potassium ABG Chloride ABG Glucose Carboxyhemoglobin Sodium Potassium Chloride Carbon Dioxide BUN Creatinine Glucose POC Glucose 163 H Lactic Acid Calcium Ionized Calcium Phosphorus 5.60 H Magnesium AST Alkaline Phosphatase Total Protein Albumin Triglycerides Arterial Blood Glucose Arterial Blood Ionized Calcium Urine Creatinine 12/27/20 12/27/20 12/27/20 02:57 04:15 04:15 WBC 28.5 H RBC Hgb 11.2 L Hct MCHC 31 L RDW 16.5 H Plt Count 130 L Seg Neuts % (Manual) Lymphocytes % (Manual) Seg Neutrophils # Man Lymphocytes # (Manual) Monocytes # (Manual) APTT ABG pH 7.238 L POC ABG pO2 139.1 H ABG pO2 ABG Hemoglobin 11.2 L ABG Oxyhemoglobin ABG Sodium 133.8 L ABG Potassium 5.2 H ABG Chloride ABG Glucose 182 H Carboxyhemoglobin Sodium 136 L Potassium 6.0 H Chloride Carbon Dioxide 18 L BUN 68 H Creatinine 4.1 H Glucose 166 H POC Glucose Lactic Acid Calcium 6.2 L Ionized Calcium Phosphorus 7.30 H D Magnesium AST Alkaline Phosphatase Total Protein Albumin Triglycerides 164 H Arterial Blood Glucose 182 H Arterial Blood Ionized Calcium 3.4 L Urine Creatinine 12/27/20 12/27/20 12/27/20 04:50 10:51 11:17 WBC RBC Hgb Hct MCHC RDW Plt Count Seg Neuts % (Manual) Lymphocytes % (Manual) Seg Neutrophils # Man Lymphocytes # (Manual) Monocytes # (Manual) APTT ABG pH POC ABG pO2 ABG pO2 ABG Hemoglobin ABG Oxyhemoglobin ABG Sodium ABG Potassium ABG Chloride ABG Glucose Carboxyhemoglobin Sodium Potassium Chloride Carbon Dioxide BUN Creatinine Glucose POC Glucose 140 H 113 H 154 H Lactic Acid Calcium Ionized Calcium Phosphorus Magnesium AST Alkaline Phosphatase Total Protein Albumin Triglycerides Arterial Blood Glucose Arterial Blood Ionized Calcium Urine Creatinine 12/27/20 12/27/20 12/27/20 12:40 14:40 23:17 WBC RBC Hgb Hct MCHC RDW Plt Count Seg Neuts % (Manual) Lymphocytes % (Manual) Seg Neutrophils # Man Lymphocytes # (Manual) Monocytes # (Manual) APTT ABG pH POC ABG pO2 ABG pO2 ABG Hemoglobin ABG Oxyhemoglobin ABG Sodium ABG Potassium ABG Chloride ABG Glucose Carboxyhemoglobin Sodium 135 L Potassium Chloride Carbon Dioxide 21 L BUN 62 H Creatinine 3.8 H Glucose 132 H POC Glucose 130 H Lactic Acid Calcium 5.6 L* Ionized Calcium 3.3 L Phosphorus Magnesium AST Alkaline Phosphatase Total Protein Albumin Triglycerides Arterial Blood Glucose Arterial Blood Ionized Calcium Urine Creatinine 12/28/20 12/28/20 12/28/20 05:36 07:08 07:28 WBC 27.2 H RBC 3.50 L Hgb 9.6 L Hct 30.8 L MCHC 31 L RDW 16.1 H Plt Count 111 L Seg Neuts % (Manual) 95.0 H Lymphocytes % (Manual) Seg Neutrophils # Man 25.8 H Lymphocytes # (Manual) 0.0 L Monocytes # (Manual) 1.1 H APTT ABG pH 7.200 L POC ABG pO2 67.2 L ABG pO2 ABG Hemoglobin 10.3 L ABG Oxyhemoglobin 89.6 L ABG Sodium 127.8 L ABG Potassium 5.1 H ABG Chloride ABG Glucose 132 H Carboxyhemoglobin 0.4 L Sodium Potassium Chloride Carbon Dioxide BUN Creatinine Glucose POC Glucose 128 H Lactic Acid Calcium Ionized Calcium Phosphorus Magnesium AST Alkaline Phosphatase Total Protein Albumin Triglycerides Arterial Blood Glucose 132 H Arterial Blood Ionized Calcium 3.5 L Urine Creatinine 12/28/20 12/28/20 12/28/20 07:28 11:37 13:25 WBC RBC Hgb Hct MCHC RDW Plt Count Seg Neuts % (Manual) Lymphocytes % (Manual) Seg Neutrophils # Man Lymphocytes # (Manual) Monocytes # (Manual) APTT ABG pH POC ABG pO2 ABG pO2 ABG Hemoglobin ABG Oxyhemoglobin ABG Sodium ABG Potassium ABG Chloride ABG Glucose Carboxyhemoglobin Sodium 131 L 133 L Potassium 5.9 H 5.1 H Chloride 97.1 L Carbon Dioxide 15 L 21 L BUN 70 H 77 H Creatinine 4.0 H 4.4 H Glucose 118 H 140 H POC Glucose 135 H Lactic Acid Calcium 6.3 L 6.3 L Ionized Calcium Phosphorus 7.10 H Magnesium AST 144 H Alkaline Phosphatase Total Protein 4.8 L Albumin 1.3 L Triglycerides Arterial Blood Glucose Arterial Blood Ionized Calcium Urine Creatinine 12/28/20 12/28/20 12/29/20 16:38 23:28 03:08 WBC RBC Hgb Hct MCHC RDW Plt Count Seg Neuts % (Manual) Lymphocytes % (Manual) Seg Neutrophils # Man Lymphocytes # (Manual) Monocytes # (Manual) APTT ABG pH 7.301 L POC ABG pO2 151.1 H ABG pO2 ABG Hemoglobin 8.7 L ABG Oxyhemoglobin 98.2 H ABG Sodium 123.4 L ABG Potassium ABG Chloride 97.0 L ABG Glucose 144 H Carboxyhemoglobin Sodium Potassium Chloride Carbon Dioxide BUN Creatinine Glucose POC Glucose 140 H 134 H Lactic Acid Calcium Ionized Calcium Phosphorus Magnesium AST Alkaline Phosphatase Total Protein Albumin Triglycerides Arterial Blood Glucose 144 H Arterial Blood Ionized Calcium 3.4 L Urine Creatinine 12/29/20 12/29/20 12/29/20 05:20 05:20 06:01 WBC 21.0 H RBC 2.89 L Hgb 8.1 L Hct 25.5 L MCHC RDW 16.1 H Plt Count 124 L Seg Neuts % (Manual) Lymphocytes % (Manual) Seg Neutrophils # Man Lymphocytes # (Manual) Monocytes # (Manual) APTT ABG pH POC ABG pO2 ABG pO2 ABG Hemoglobin ABG Oxyhemoglobin ABG Sodium ABG Potassium ABG Chloride ABG Glucose Carboxyhemoglobin Sodium 131 L Potassium Chloride 93.4 L Carbon Dioxide BUN 79 H Creatinine 4.7 H Glucose 122 H POC Glucose 108 H Lactic Acid Calcium 5.5 L* Ionized Calcium Phosphorus 5.70 H Magnesium 1.60 L AST Alkaline Phosphatase Total Protein Albumin Triglycerides Arterial Blood Glucose Arterial Blood Ionized Calcium Urine Creatinine 12/29/20 12/29/20 12/29/20 10:04 11:27 17:31 WBC RBC Hgb Hct MCHC RDW Plt Count Seg Neuts % (Manual) Lymphocytes % (Manual) Seg Neutrophils # Man Lymphocytes # (Manual) Monocytes # (Manual) APTT ABG pH POC ABG pO2 ABG pO2 ABG Hemoglobin ABG Oxyhemoglobin ABG Sodium ABG Potassium ABG Chloride ABG Glucose Carboxyhemoglobin Sodium Potassium Chloride Carbon Dioxide BUN Creatinine Glucose POC Glucose 107 H 112 H 110 H Lactic Acid Calcium Ionized Calcium Phosphorus Magnesium AST Alkaline Phosphatase Total Protein Albumin Triglycerides Arterial Blood Glucose Arterial Blood Ionized Calcium Urine Creatinine 12/30/20 12/30/20 12/30/20 03:31 08:06 17:39 WBC RBC Hgb Hct MCHC RDW Plt Count Seg Neuts % (Manual) Lymphocytes % (Manual) Seg Neutrophils # Man Lymphocytes # (Manual) Monocytes # (Manual) APTT ABG pH 7.261 L POC ABG pO2 123.1 H ABG pO2 ABG Hemoglobin 8.7 L ABG Oxyhemoglobin ABG Sodium 123.2 L ABG Potassium ABG Chloride 96.0 L ABG Glucose 112 H Carboxyhemoglobin Sodium 128 L Potassium Chloride 90.7 L Carbon Dioxide 21 L BUN 86 H Creatinine 4.9 H Glucose 107 H POC Glucose 134 H Lactic Acid Calcium 6.2 L Ionized Calcium Phosphorus 5.30 H Magnesium 1.50 L AST Alkaline Phosphatase Total Protein Albumin Triglycerides Arterial Blood Glucose 112 H Arterial Blood Ionized Calcium 3.2 L Urine Creatinine 12/30/20 12/31/20 12/31/20 22:45 02:14 04:40 WBC RBC Hgb Hct MCHC RDW Plt Count Seg Neuts % (Manual) Lymphocytes % (Manual) Seg Neutrophils # Man Lymphocytes # (Manual) Monocytes # (Manual) APTT ABG pH 7.267 L POC ABG pO2 ABG pO2 ABG Hemoglobin 8.0 L ABG Oxyhemoglobin 93.7 L ABG Sodium ABG Potassium ABG Chloride 95.0 L ABG Glucose 108 H Carboxyhemoglobin 1.7 H Sodium 126 L Potassium Chloride 90.3 L Carbon Dioxide 20 L BUN 70 H Creatinine 4.3 H Glucose 209 H POC Glucose 109 H Lactic Acid Calcium 6.6 L Ionized Calcium Phosphorus 4.70 H Magnesium 1.60 L AST Alkaline Phosphatase Total Protein Albumin Triglycerides 157 H Arterial Blood Glucose 108 H Arterial Blood Ionized Calcium 3.7 L Urine Creatinine Chest x-ray: report reviewed, image reviewed
[2020-12-31 16:54] LABS: Hematocrit 23.9 % (35.5-45.6); Hemoglobin 7.7 gm/dl (11.8-15.2); Mean Corpuscular HGB Conc 32 % (32-34); Mean Corpuscular Volume 87 fl (84-94); Platelet Count 237 K/mm3 (140-440); Red Blood Count 2.75 M/mm3 (3.65-5.03); Red Cell Distribution Width 15.6 % (13.2-15.2)
[2020-12-31 17:56] LABS: Total Cells Counted 100
[2020-12-31 17:57] LABS: Band Neutrophils # (Manual) 0.4 K/mm3
[2020-12-31 17:58] LABS: Anisocytosis 1+; Platelet Estimate Consistent w Auto
[2020-12-31] MEDS ORDERED: TOTAL PARENTERAL NUTRITION 2,400 ML IV SCH (20:00)
[2020-12-31] MEDS: NORepinephrine/NS 8 MG-250 ML 8 MG/250 ML INFUS..BTL IV SCH (21:53)
[2021-01-01] MEDS: INSULIN REGULAR, HUMAN 100 UNITS/1 ML SUB-Q SCH ×4 (00:08→17:28)
[2021-01-01] MEDS: fentaNYL DRIP Premix 2,000 MCG/100 ML BAG IV SCH ×5 (02:32→21:35)
[2021-01-01] MEDS: VASOPRESSIN 20 UNIT in SODIUM CHLORIDE 0.9% 100 ML IV SCH ×2 (03:21→16:40)
[2021-01-01] MEDS: PIPERACIL/TAZOBACTA 4.5/NS 100 4.5 GM/100 ML VIAL IV SCH ×2 (06:30→17:12)
[2021-01-01 07:08] LABS: Albumin 1.4 g/dL (3.9-5); Calcium 7.1 mg/dL (8.4-10.2)
[2021-01-01] MEDS ORDERED: LIDOCAINE (2%) 20 MG/1 ML VIAL 20 ML MDV INFILTRATI ONE (08:21)
[2021-01-01] MEDS ORDERED: BUPIVACAINE/PF (0.25%) 2.5 MG/ML 30 ML VIAL INFILTRATI ONE (08:22)
--- NOTE | 2021-01-01 08:31 | XRay Report ---
CHEST 1 VIEW 01/01/2021 7:45 AM INDICATION / CLINICAL INFORMATION: Acute respiratory failure. COMPARISON: 12/24/2020 FINDINGS: SUPPORT DEVICES: Stable, satisfactory device positioning. HEART / MEDIASTINUM: Stable. LUNGS / PLEURA: Moderate patchy and confluent airspace and interstitial disease which is significantl y worse when compared to 12/24/2020. No pneumothorax. ADDITIONAL FINDINGS: No significant additional findings. IMPRESSION: 1. Interval worsening. Signer Name: Alec Paul MD Signed: 01/01/2021 8:26 AM Workstation Name: [id number]
--- NOTE | 2021-01-01 08:44 | Progress Note ---
Assessment and Plan Assessment and plan: This is a 60-year-old male with obesity, hypertension, nicotine dependence, PVD s/p stent placement on dual antiplatelet therapy, hyperlipidemia, OA, GERD, ventral hernia and small bowel obstruction who was admitted with small bowel obstruction and peritonitis Septic Shock, POA (presented with leukocytosis, tachycardia, tachypnea,febrile and evidence of peritonitis) COVID-19 PUI, ruled out Small bowel obstruction with peritonitis Ventral hernia Leukocytosis Hypernatremia Hypercholremia Hypocalcemia Acute Kidney Injury Obesity Hypertension Nicotine dependence CAD s/p stent placement Hyperlipidemia Osteoarthritis GERD History Interval history: This is a 60-year-old male with obesity, hypertension, nicotine dependence, PVD s/p stent placement on dual antiplatelet therapy, hyperlipidemia, OA, GERD, ventral hernia with SBO who presents to the emergency department on 12/20 with severe, diffuse, worsened with movement, slightly relieved with rest abdominal pain rated at 10/10 with decreased oral intake, nausea and multiple episodes of vomiting. Patient underwent a CT of his abdomen/pelvis and was found to have evidence of small bowel obstruction as well as clinical findings consistent with acute peritonitis. Patient was admitted to the hospital service with acute peritonitis and incarcerated ventral hernia with consults to [facility] and surgery. 12/21: Patient is status post ex lap, extensive lysis of adhesions, small bowel resection, peritoneal lavage and ABThera abdominal wound VAC placement by Dr. Tena and Dr. Brumfield on 12/20 with removal of a 70 cm segment of necrotic small bowel. Patient was intubated and sedated on propofol 10/ 4 at the time of my examination on Assist-control, rate of 24, PEEP of 6, tidal volume of 550 and FiO2 35%. Patient needed to be deeply sedated and there was a became hypotensive. Patient was started on patient for support with Levophed and received bolus of IVF. 12/22: Patient was febrile to 103 and vancomycin and Diflucan were added by [facility] and infectious disease was consulted and they increased Zosyn and stop vancomycin. Patient was given additional 1 L bolus today for CVP goal of 10-12. At the time of examination patient was on Levophed, propofol and fentanyl CMV tidal volume 500, rate of 24, PEEP of 6 and FiO2 65%. Plan for OR tomorrow 12/23: Patient Cr/BUN noted to be increased and nephrology was consulted. ID decreased the zosyn dose d/r renal function. Urine studies ordered. Hardy placed today. LR boluses per [facility], TPN to be started. Fractional excretion of sodium calculated at 0.16 indicating prerenal state 12/24: Patient is status post abdominal exploration, small bowel resection of 4 to 5 cm segment of dusky small bowel, peritoneal lavage and ABThera wound VAC placement on 12/23 with surgery, leukocytosis and renal function is improving, worsening hypernatremia and hyperchloremia. Patient will be started on TPN today. We will place on SSI/Accu-Cheks every every 6 hours. Patient noted to be nearly maxed on Levophed and vasopressin was ordered. Remains sedated and on MV 12/25: Leukocytosis continues to improve, given Ca Gluconate today, Hypernatremia, Cr and hyperchorlemia slightly worsened today. Patient is sedated with propofol and fentanyl on CMV TV 500, Rate 24, Peep 6, FiO2 50%. He remains on levophed. Possible OR Saturday. 12/28: Patient is orally intubated with AC mode ventilation rate 24, tidal volume 500, FiO2 75% and PEEP of 6. POD#8 s/p ex lap and small bowel resection for necrotic bowel secondary to incarcerated ventral hernia left with open abdomen. POD#5 s/p abdominal exploration with segmental small bowel resection. abthera placement POD#2 s/p abdominal exploration, small bowel resection for ischemia, abthera placement -[facility], surgery, infectious disease, nephrology consulted, appreciate recommendations -IV abx per ID: Zosyn, fluconazole -NGT to LIWS -NPO for now, TPN -SSI, Accucheck q6 -Vasopressor support with levophed -On mechanical ventilation, wean as tolerated, VAP bundle -Sedated with propofol and analgesia with fentanyl drip -Trend CBC, BMP, Mg, Phos -GI/DVT prophylaxis: PPI, SCDs to bilateral lower extremities while in bed, avoid chemical anticoagulation to cleared by surgery 12/29: Patient underwent abdominal exploration, small bowel resection, small bowel anastomosis and ABThera wound VAC placement this a.m. Patient remains on AC mode ventilation with a rate of 24, tidal volume 500, FiO2 65% and PEEP of 6. Continue antibiotics per ID recommendations. Continue vasopressor support as needed. Continue TPN for nutritional support. 12/30: Patient currently with AC mode ventilation rate of 24, tidal volume 500, FiO2 60% and PEEP of 6. Patient underwent further surgery yesterday with anothe r abdominal exploration, small bowel resection, small bowel anastomosis and replacement of the ABThera wound VAC. Patient continues to require vasopressor support with vasopressin and Levophed. Continue TPN for nutrition. Continue propofol and fentanyl for sedation. Continue Zosyn per ID recommendations 612: Patient currently with AC mode ventilation rate of 24, tidal volume 500, FiO2 50% and PEEP of 6. POD#12 s/p ex lap and small bowel resection for necrotic bowel secondary to incarcerated ventral hernia left with open abdomen. POD#9 s/p abdominal exploration with segmental small bowel resection. abthera placement POD#3 s/p abdominal exploration, small bowel resection for ischemia, abthera placement POD#2 s/p abdominal exploration with small bowel anastamosis and abthera vac placement Continue hemodialysis per nephrology recommendations. Surgery plans for abdominal washout and bowel examination on Saturday. If anastamosis looks viable and no other issues, surgery plans to close his abdomen. 6: Continue current ventilator settings per pulmonary monitor ABG. Continue antibiotics per ID recommendations. Surgery plans for abdominal washout and bowel examination. If anastamosis looks viable and no other issues, surgery plans to close his abdomen. Wean pressors to maintain MAP > 65. Continue TPN for nutritional support. Hemodialysis per nephrology recommendations. Pro gnosis remains guarded. The high probability of a clinically significant, sudden or life threatening deterioration of the [multi] system(s) required my full and direct attention, intervention and personal management. The aggregate critical care time was [32] minutes. This time is in addition to time spent performing re continue sedation with propofol and fentanyl as needed. Ported procedures but includes the following: [x] Data Review and interpretation [x] Patient assessment and monitoring of vital signs [x] Documentation [x] Medication orders and management History Interval history: This is a 60-year-old male with obesity, hypertension, nicotine dependence, PVD s/p stent placement on dual antiplatelet therapy, hyperlipidemia, OA, GERD, ventral hernia with SBO who presents to the emergency department on 12/20 with severe, diffuse, worsened with movement, slightly relieved with rest abdominal pain rated at 10/10 with decreased oral intake, nausea and multiple episodes of vomiting. Patient underwent a CT of his abdomen/pelvis and was found to have evidence of small bowel obstruction as well as clinical findings consistent with acute peritonitis. Patient was admitted to the hospital service with acute peritonitis and incarcerated ventral hernia with consults to [facility] and surgery. No new issues overnight. Hospitalist Physical - Constitutional Vitals: Temp Pulse Resp BP Pulse Ox 98.7 F 96 H 16 96/45 96 01/01/21 07:00 01/01/21 07:34 01/01/21 05:15 01/01/21 07:34 01/01/21 07:34 General appearance: Present: no acute distress, well-nourished - EENT Eyes: Present: PERRL, EOM intact ENT: hearing intact, clear oral mucosa, dentition normal - Neck Neck: Present: supple, normal ROM - Respiratory Respiratory effort: normal Respiratory: bilateral: CTA - Cardiovascular Rhythm: regular Heart Sounds: Present: S1 & S2. Absent: gallop, rub - Extremities Extremities: no ischemia, No edema, Full ROM - Abdominal General gastrointestinal: soft, non-tender, non-distended, normal bowel sounds - Integumentary Integumentary: Present: clear, warm, dry - Neurologic Neurologic: CNII-XII intact, moves all extremities HEART Score - HEART Score Troponin: Troponin T < 0.010 ng/mL (0.00-0.029) 12/20/20 13:58 Results - Labs CBC & Chem 7: 12/31/20 16:23 01/01/21 05:50 Labs: Laboratory Last Values WBC 18.0 K/mm3 (4.5-11.0) H 12/31/20 16:23 RBC 2.75 M/mm3 (3.65-5.03) L 12/31/20 16:23 Hgb 7.7 gm/dl (11.8-15.2) L 12/31/20 16:23 Hct 23.9 % (35.5-45.6) L 12/31/20 16:23 MCV 87 fl (84-94) 12/31/20 16:23 MCH 28 pg (28-32) 12/31/20 16:23 MCHC 32 % (32-34) 12/31/20 16:23 RDW 15.6 % (13.2-15.2) H 12/31/20 16:23 Plt Count 237 K/mm3 (140-440) 12/31/20 16:23 Add Manual Diff Complete 12/31/20 16:23 Total Counted 100 12/31/20 16:23 Seg Neutrophils % Development Scientist 12/31/20 16:23 Seg Neuts % (Manual) 91.0 % (40.0-70.0) H 12/31/20 16:23 Band Neutrophils % 2.0 % 12/31/20 16:23 Lymphocytes % (Manual) 6.0 % (13.4-35.0) L 12/31/20 16:23 Monocytes % (Manual) 1.0 % (0.0-7.3) 12/31/20 16:23 Nucleated RBC % Not Reportable 12/31/20 16:23 Seg Neutrophils # Man 16.4 K/mm3 (1.8-7.7) H 12/31/20 16:23 Band Neutrophils # 0.4 K/mm3 12/31/20 16:23 Lymphocytes # (Manual) 1.1 K/mm3 (1.2-5.4) L 12/31/20 16:23 Abs React Lymphs (Man) 0.0 K/mm3 12/31/20 16:23 Monocytes # (Manual) 0.2 K/mm3 (0.0-0.8) 12/31/20 16:23 Eosinophils # (Manual) 0.0 K/mm3 (0.0-0.4) 12/31/20 16:23 Basophils # (Manual) 0.0 K/mm3 (0.0-0.1) 12/31/20 16:23 Metamyelocytes # 0.0 K/mm3 12/31/20 16:23 Myelocytes # 0.0 K/mm3 12/31/20 16:23 Promyelocytes # 0.0 K/mm3 12/31/20 16:23 Blast Cells # 0.0 K/mm3 12/31/20 16:23 WBC Morphology Not Reportable 12/31/20 16:23 Hypersegmented Neuts Not Reportable 12/31/20 16:23 Hyposegmented Neuts Not Reportable 12/31/20 16:23 Hypogranular Neuts Not Reportable 12/31/20 16:23 Smudge Cells Not Reportable 12/31/20 16:23 Toxic Granulation Not Reportable 12/31/20 16:23 Toxic Vacuolation Not Reportable 12/31/20 16:23 Dohle Bodies Not Reportable 12/31/20 16:23 Pelger-Huet Anomaly Not Reportable 12/31/20 16:23 Mirian Rods Not Reportable 12/31/20 16:23 Platelet Estimate Consistent w auto 12/31/20 16:23 Clumped Platelets Not Reportable 12/31/20 16:23 Plt Clumps, EDTA Not Reportable 12/31/20 16:23 Large Platelets Not Reportable 12/31/20 16:23 Giant Platelets Not Reportable 12/31/20 16:23 Platelet Satelliting Not Reportable 12/31/20 16:23 Plt Morphology Comment Not Reportable 12/31/20 16:23 RBC Morphology Not Reportable 12/31/20 16:23 Dimorphic RBCs Not Reportable 12/31/20 16:23 Polychromasia Not Reportable 12/31/20 16:23 Hypochromasia Not Reportable 12/31/20 16:23 Poikilocytosis Not Reportable 12/31/20 16:23 Anisocytosis 1+ 12/31/20 16:23 Microcytosis Not Reportable 12/31/20 16:23 Macrocytosis Not Reportable 12/31/20 16:23 Spherocytes Not Reportable 12/31/20 16:23 Pappenheimer Bodies Not Reportable 12/31/20 16:23 Sickle Cells Not Reportable 12/31/20 16:23 Target Cells Not Reportable 12/31/20 16:23 Tear Drop Cells Not Reportable 12/31/20 16:23 Ovalocytes Not Reportable 12/31/20 16:23 Helmet Cells Not Reportable 12/31/20 16:23 [place] Bodies Not Reportable 12/31/20 16:23 [place] Rings Not Reportable 12/31/20 16:23 Jonathan Cells Not Reportable 12/31/20 16:23 Bite Cells Not Reportable 12/31/20 16:23 Crenated Cell Not Reportable 12/31/20 16:23 Elliptocytes Not Reportable 12/31/20 16:23 Acanthocytes (Spur) Not Reportable 12/31/20 16:23 Rouleaux Not Reportable 12/31/20 16:23 Hemoglobin C Crystals Not Reportable 12/31/20 16:23 Schistocytes Not Reportable 12/31/20 16:23 Malaria parasites Not Reportable 12/31/20 16:23 Dylon Bodies Not Reportable 12/31/20 16:23 Hem Pathologist Commnt No 12/31/20 16:23 APTT 49.4 Sec. (24.2-36.6) H 12/20/20 13:58 ABG pH 7.264 (7.320-7.450) L 01/01/21 04:00 POC ABG pCO2 45.8 mmHg (32.0-48.0) 01/01/21 04:00 ABG pCO2 51.0 mm Hg 12/20/20 21:30 POC ABG pO2 74.8 mmHg (83-108) L 01/01/21 04:00 ABG pO2 104.4 mm Hg (80.0-90.0) H 12/20/20 21:30 POC ABG HCO3 20.3 01/01/21 04:00 ABG HCO3 25.3 mmol/L (20.0-26.0) 12/20/20 21:30 ABG O2 Saturation 94.0 (0-100) 01/01/21 04:00 ABG O2 Content 20.3 (0.0-44) 12/20/20 21:30 POC ABG Base Excess -6.3 01/01/21 04:00 ABG Base Excess -1.7 mmol/L (-2.0-3.0) 12/20/20 21:30 ABG Hemoglobin 7.1 (12.0-17.5) L 01/01/21 04:00 ABG Oxyhemoglobin 92.1 (94-98) L 01/01/21 04:00 ABG Carboxyhemoglobin 1.3 % (0.0-5.0) 12/20/20 21:30 ABG Methemoglobin 0.3 (0.0-1.5) 01/01/21 04:00 ABG Sodium 124.9 mmol/L (136.0-145.0) L 01/01/21 04:00 ABG Potassium 3.5 mmol/L (3.40-4.50) 01/01/21 04:00 ABG Chloride 95.0 mmol/L (98-107) L 01/01/21 04:00 ABG Glucose 111 mg/dL (65-95) H 01/01/21 04:00 Oxyhemoglobin 95.2 % (95.0-99.0) 12/20/20 21:30 Carboxyhemoglobin 1.7 (0.5-1.5) H 01/01/21 04:00 FiO2 100 % 12/20/20 21:30 FiO2 % 60.0 01/01/21 04:00 Sodium 131 mmol/L (137-145) L 01/01/21 05:50 Potassium 3.9 mmol/L (3.6-5.0) 01/01/21 05:50 Chloride 93.3 mmol/L (98-107) L 01/01/21 05:50 Carbon Dioxide 21 mmol/L (22-30) L 01/01/21 05:50 Anion Gap 21 mmol/L 01/01/21 05:50 BUN 67 mg/dL (9-20) H 01/01/21 05:50 Creatinine 4.2 mg/dL (0.8-1.3) H 01/01/21 05:50 Estimated GFR 15 ml/min 01/01/21 05:50 BUN/Creatinine Ratio 16 % 01/01/21 05:50 Glucose 95 mg/dL (75-100) 01/01/21 05:50 POC Glucose 125 mg/dL (70-105) H 12/31/20 23:21 Lactic Acid 1.70 mmol/L (0.7-2.0) 12/20/20 16:20 Calcium 7.1 mg/dL (8.4-10.2) L 01/01/21 05:50 Ionized Calcium 3.3 mg/dL (4.8-5.6) L 12/27/20 14:40 Phosphorus 4.70 mg/dL (2.5-4.5) H 12/31/20 04:40 Magnesium 1.60 mg/dL (1.7-2.3) L 12/31/20 04:40 Total Bilirubin 0.40 mg/dL (0.1-1.2) 01/01/21 05:50 AST 60 units/L (5-40) H 01/01/21 05:50 ALT 29 units/L (7-56) 01/01/21 05:50 Alkaline Phosphatase 93 units/L (35-129) 01/01/21 05:50 Troponin T < 0.010 ng/mL (0.00-0.029) 12/20/20 13:58 Total Protein 4.8 g/dL (6.3-8.2) L 01/01/21 05:50 Albumin 1.4 g/dL (3.9-5) L 01/01/21 05:50 Albumin/Globulin Ratio 0.4 % 01/01/21 05:50 Triglycerides 157 mg/dL (2-149) H 12/31/20 04:40 Arterial Blood Glucose 111 mg/dL (65-95) H 01/01/21 04:00 Arterial Blood Ionized Calcium 4.0 mg/dL (4.6-5.3) L 01/01/21 04:00 Urine Color Yellow (Yellow) 12/23/20 12:15 Urine Turbidity Cloudy (Clear) 12/23/20 12:15 Urine pH 5.0 (5.0-7.0) 12/23/20 12:15 Ur Specific [place] 1.019 (1.003-1.030) 12/23/20 12:15 Urine Protein <15 mg/dl mg/dL (Negative) 12/23/20 12:15 Urine Glucose (UA) Neg mg/dL (Negative) 12/23/20 12:15 Urine Ketones Neg mg/dL (Negative) 12/23/20 12:15 Urine Blood Sm (Negative) 12/23/20 12:15 Urine Nitrite Neg (Negative) 12/23/20 12:15 Urine Bilirubin Neg (Negative) 12/23/20 12:15 Urine Urobilinogen < 2.0 mg/dL (<2.0) 12/23/20 12:15 Ur Leukocyte Esterase Neg (Negative) 12/23/20 12:15 Urine WBC (Auto) 5.0 /HPF (0.0-6.0) 12/23/20 12:15 Urine RBC (Auto) 2.0 /HPF (0.0-6.0) 12/23/20 12:15 U Epithel Cells (Auto) < 1.0 /HPF (0-13.0) 12/20/20 Unknown Urine Bacteria (Auto) 1+ /HPF (Negative) 12/23/20 12:15 Triple Phos Crystals 2+ 12/23/20 12:15 Hyaline Casts 19 /LPF 12/20/20 Unknown Urine Mucus Few /HPF 12/23/20 12:15 Urine Eosinophils None seen (None Seen) 12/23/20 12:15 Urine Creatinine 78.1 mg/dL (0.1-20.0) H 12/23/20 12:15 Urine Sodium 13 mmol/L 12/23/20 12:15 Fraction Sodium Excret 0.2 12/23/20 12:15 Random Vancomycin 7.9 ug/mL (0-40.0) 12/23/20 12:15 Coronavirus (PCR) Negative (Negative) 12/21/20 Unknown Hepatitis A IgM Ab Non-reactive (NonReactive) 12/30/20 14:40 Hep Bs Antigen Non-reactive (Negative) 12/30/20 14:40 Hep B Core IgM Ab Non-reactive (NonReactive) 12/30/20 14:40 Hepatitis C Antibody Non-reactive (NonReactive) 12/30/20 14:40 Blood Type A NEGATIVE 12/29/20 05:20 Antibody Screen Negative 12/29/20 05:20 [place]/IV: Voiding Method Indwelling Catheter Active Medications - Current Medications Current Medications: Generic Name Dose Route Start Last Admin Trade Name Freq PRN Reason Stop Dose Admin Acetaminophen 650 mg 12/21/20 11:51 12/25/20 20:35 Acetaminophen 650 Mg Rect Supp HI 650 mg Q4H PRN Administration TEMP >/=100.4 Bisacodyl 10 mg 12/30/20 11:00 12/31/20 09:49 Bisacodyl 10 Mg Rect Supp HI 10 mg QDAY ASCENCION Administration Dextrose 50 ml 12/24/20 10:49 Dextrose 50% In Water (25gm) 50 Ml Syringe IV Q30MIN PRN Hypoglycemia Protocol Famotidine 20 mg 12/26/20 10:00 12/31/20 09:49 Famotidine 20 Mg/2 Ml Inj IV 20 mg DAILY ASCENCION Administration Fentanyl 50 mcg 12/20/20 21:58 12/21/20 03:46 Fentanyl 100 Mcg/2 Ml Inj IV 50 mcg Q10MIN PRN Administration ANALGESIA Hydrophilic Ointment 1 applic 12/20/20 21:58 Lip Therapy Vaseline TP Q2HR PRN Dry Lips Fentanyl Citrate 2,000 mcg in 100 mls @ 6.01 mls/hr 12/20/20 22:00 01/01/21 05:59 Fentanyl Drip Premix IV 4 mcg/kg/hr TITR ASCENCION 24.04 mls/hr Administration Protocol 1 MCG/KG/HR Propofol 1,000 mg in 100 mls @ 3.606 mls/hr 12/20/20 22:00 01/01/21 04:23 Diprivan 10 Mg/Ml IV 30 mcg/kg/min TITR ASCENCION 21.636 mls/hr Administration Protocol 5 MCG/KG/MIN NORepinephrine/NS 8 MG-250 ML 8 mg in 250 mls @ 3.75 mls/hr 12/21/20 09:00 01/01/21 07:47 Norepinephrine/Ns 8 Mg-250 Ml (Double Conc) IV 2 mcg/min TITRATE ASCENCION 3.75 mls/hr Titration Protocol 2 MCG/MIN Vasopressin 20 unit/ Sodium 101 mls @ 9.09 mls/hr 12/24/20 09:00 01/01/21 0 3:21 Chloride IV 0.03 units/min TITR ASCENCION 9.09 mls/hr Administration Protocol 0.03 UNITS/MIN Piperacillin Sod/Tazobactam Sod 4.5 gm in 100 mls @ 200 mls/hr 12/26/20 18:00 01/01/21 06:30 Zosyn/Ns 4.5gm/100ml IV 200 mls/hr Q12H ASCENCION Administration Protocol Fluconazole 200 mg in 100 mls @ 100 mls/hr 12/26/20 10:00 12/31/20 12:18 Diflucan IV Infused Q24H [facility] Infusion Protocol Sodium Chloride 100 mls @ 999 mls/hr 12/30/20 13:00 Nacl 0.9% IV MARILU PRN Hypotension Amino Acids/Electrolytes/Dextrose 2,400 mls @ 100 mls/hr 12/31/20 20:00 12/31/20 20:01 Tpn Adult IV 01/01/21 19:59 100 mls/hr DAILY@2000 [facility] Administration Protocol Insulin Human Regular 0 units 12/28/20 00:00 01/01/21 06:24 Insulin Regular, Human 100 Units/1 Ml SUB-Q Not Given Q6H [facility] Protocol Multi-Ingred Cream/Lotion/Oil/Oint 1 applic 12/20/20 21:58 Mineral Oil/Petrolatum, White Ophth Oint 3.5 Gm OU Q4HR PRN Dry Eye(s) Sodium Chloride 10 ml 12/20/20 22:00 12/31/20 22:10 Sodium Chloride 0.9% 10 Ml Flush Syringe IV 10 ml BID ASCENCION Administration Sodium Chloride 10 ml 12/20/20 16:42 Sodium Chloride 0.9% 10 Ml Flush Syringe IV PRN PRN LINE FLUSH Nutrition/Malnutrition Assess - Dietary Evaluation Nutrition/Malnutrition Findings: Nutrition Notes Start: 12/21/20 09:06 Freq: Status: Active Protocol: Document 12/31/20 09:48 CW (Rec: 12/31/20 09:54 CW [id number]) Nutrition Notes Initial or Follow up Reassessment Current Diagnosis Coronary Artery Disease, Hypertension,Small Bowel Obstruction,Hyperlipidemia Other Pertinent Diagnosis gangrenous small bowel, s/p small bowel ressection, peritonitis Current Diet TPN at 100 ml/hr Labs/Tests Na 126 Cl 90.3 acetate 20 BUN 70 Cr 4.3 BG 209 Ca 6.6 phos 4.7 Mg 1.6 Pertinent Medications Norepinephrine, vasopressin propofol at 18.03 Ducolax NS at 100 ml/hr Height 6 ft Weight 143.9 kg [place] Body Weight (kg) 80.90 BMI 43.0 Weight Status Morbidly Obese Subjective/Other Information Day 8 of CPN. NGT having high output (700 ml) per notes. Pt underwent HD yesterday. Will advance protein towards goal today d/t initiation of HD. Percent of energy/protein needs met: 83%/49% Burn Absent Trauma Absent GI Symptoms Other Current % PO Negligible Minimum of two criteria No Fluid Accumulation Mild (non-severe) #2 Nutrition Diagnosis Increased nutrient needs ( specify in comment below) Diagnosis Progress(for reassessment Continues documentation) #1 Nutrition Diagnosis Inadequate oral intake Diagnosis Progress(for reassessment Continues documentation) Is patient on ventilator? Yes Is Patient Ambulatory and/or Out of Bed No REE-([facility]-confined to bed) 2754.336 Kcal/Kg value to use for calculation 14 Approximate Energy Requirements Using 2015 kcal/Kg Calculation Used for Recommendations Kcal/kg Additional Notes Pro needs >2g/kg IBW: >162g/ day Fluid needs per MD Nutrition Intervention Change Diet Order: Continue CPN Nutrition Support: CPN at 100 ml/hr: MVI, 16.7% dextrose, 4.2% AA, Osmolality: 1287 Kcal 1,760 Protein (gm) 100 Carbohydrates (gm) 400 Fat (gm) 0 Fluid (mL) 2,400 Fiber (gm) 0 Goal #1 Meet needs as best as possible via CPN Anticipated Discharge Needs: Unable to determine at this time Follow-Up By: 01/01/21 Additional Comments Labs in am: MAYO, Mg, Mar[place]
[2021-01-01] MEDS ORDERED: ROCURONIUM 50 MG/5 ML INJ IV ONE (08:59)
--- NOTE | 2021-01-01 09:00 | Anesthesia Day of Surgery ---
Anesthesia Day of Surgery - Day of Surgery Patient Examined: Yes Patient H&P Reviewed: Yes Patient is NPO: Yes
[2021-01-01] MEDS ORDERED: SODIUM CHLORIDE 0.9% 1000 ML 1,000 ML ONE (09:36)
[2021-01-01] MEDS ORDERED: SODIUM CHLORIDE 0.9% IRR 1,500 ML BOTTLE IR ONE (09:54)
--- NOTE | 2021-01-01 13:02 | Progress Note ---
Assessment and Plan Impression * Acute kidney injury. Most likely prerenal with additional tubular injury as well * Incarcerated hernia with ischemic bowel. Status post bowel resection * Hypernatremia * Sepsis * Respiratory failure * Hyperkalemia * Metabolic Acidosis, Gap Recommendations * Renal function was worsening with creatinine from 2.6->3.8->4.1->4.0->4.7->4.9 with worsening urine output * Started HD 12/30 for worsening renal function, electrolyte abnormalities, and worsening volume * Likely will need pressor support for HD; had HD 12/31, no HD today, plan for HD 01/02 or 01/03 prn based on labs/volume * Hold NS to avoid volume overload * Patient currently has indwelling Lawrence catheter in place * TPN per nutrition/primary * Pressors to maintain MAP greater than 65 * Avoid nephrotoxins * Monitor fluid status and electrolytes closely Subjective Date of service: 01/01/21 Principal diagnosis: SBO and necrosis of large part of small intestine Interval history: Remains intubated on pressors Objective - Exam Narrative Exam: General appearance: ill appearing appears stated age, intubated EENT: PERRL, mucous membranes moist Neck: no JVD Respiratory: Present: Ronchi (Few scattered rhonchi) Cardiology: regular, normal heart rate Gastrointestinal: other (Midline incision noted. Wound VAC in place.) Integumentary: other (No edema) - Vital Signs Vital signs: Vital Signs - 12hr 01/01/21 01/01/21 01/01/21 01:10 01:15 01:30 Temperature Pulse Rate 93 H 101 H 101 H Respiratory 18 14 Rate Blood Pressure 114/50 111/51 O2 Sat by Pulse 100 99 Oximetry 01/01/21 01/01/21 01/01/21 01:45 02:00 02:15 Temperature Pulse Rate 99 H 99 H 99 H Respiratory 11 L 16 12 Rate Blood Pressure 105/49 114/49 109/47 O2 Sat by Pulse 99 98 99 Oximetry 01/01/21 01/01/21 01/01/21 02:30 02:45 03:00 Temperature Pulse Rate 98 H 95 H 95 H Respiratory 14 18 22 Rate Blood Pressure 102/46 114/53 107/48 O2 Sat by Pulse 100 99 98 Oximetry 01/01/21 01/01/21 01/01/21 03:15 03:30 03:45 Temperature Pulse Rate 94 H 92 H 93 H Respiratory 22 20 17 Rate Blood Pressure 107/47 109/46 104/45 O2 Sat by Pulse 97 97 95 Oximetry 01/01/21 01/01/21 01/01/21 04:00 04:15 04:30 Temperature 98.6 F Pulse Rate 93 H 93 H 92 H Respiratory 13 15 13 Rate Blood Pressure 109/45 105/43 107/46 O2 Sat by Pulse 97 97 96 Oximetry 01/01/21 01/01/21 01/01/21 04:45 05:00 05:15 Temperature Pulse Rate 92 H 92 H 89 Respiratory 12 20 16 Rate Blood Pressure 102/46 102/42 103/44 O2 Sat by Pulse 98 95 97 Oximetry 01/01/21 01/01/21 01/01/21 05:30 05:46 06:00 Temperature Pulse Rate 102 H 103 H 102 H Respiratory Rate Blood Pressure 112/66 117/60 106/54 O2 Sat by Pulse 89 93 95 Oximetry 01/01/21 01/01/21 01/01/21 06:15 07:00 07:34 Temperature 98.7 F Pulse Rate 102 H 96 H Respiratory Rate Blood Pressure 98/53 96/45 O2 Sat by Pulse 95 96 Oximetry - Lab 12/31/20 16:23 01/01/21 05:50 Most recent lab results ABG pH 7.264 (7.320-7.450) L 01/01/21 04:00 ABG pCO2 51.0 mm Hg 12/20/20 21:30 ABG pO2 104.4 mm Hg (80.0-90.0) H 12/20/20 21:30 ABG HCO3 25.3 mmol/L (20.0-26.0) 12/20/20 21:30 ABG O2 Saturation 94.0 (0-100) 01/01/21 04:00 Calcium 7.1 mg/dL (8.4-10.2) L 01/01/21 05:50 Phosphorus 4.70 mg/dL (2.5-4.5) H 12/31/20 04:40 Magnesium 1.60 mg/dL (1.7-2.3) L 12/31/20 04:40 Urine Creatinine 78.1 mg/dL (0.1-20.0) H 12/23/20 12:15 Urine Sodium 13 mmol/L 12/23/20 12:15 Medications & Allergies - Medications Allergies/Adverse Reactions: Allergies Iodinated Contrast Media Adverse Reaction (Verified 09/04/18 14:20) Unknown Home Medications: Home Medications Medication Instructions Recorded Confirmed Last Taken Type Aspirin 81 mg PO DAILY #30 tab.chew 09/08/18 09/12/20 03/31/20 09:28 Rx AtorvaSTATin [Lipitor] 80 mg PO QHS tablet 05/08/19 09/12/20 03/28/20 Rx Albuterol Sulfate [Proventil Hfa] 13.4 gm IH Q6H #1 hfa.aer.ad 04/01/20 09/12/20 Unknown Rx Clopidogrel [Plavix] 75 mg PO DAILY #30 tablet 04/01/20 09/12/20 Unknown Rx Gabapentin 300 mg PO BID@0700,1800 30 Days 04/01/20 09/12/20 Unknown Rx capsule Gabapentin 600 mg PO QHS 30 Days capsule 04/01/20 09/12/20 Unknown Rx Metoprolol [Lopressor TAB] 25 mg PO BID #60 tablet 04/01/20 09/12/20 Unknown Rx Gray-3/Dha/Epa/Fish Oil [Gray 3 1 each PO BID #60 capsule 04/01/20 09/12/20 Unknown Rx 500 Softgel] Tiotropium [place] [Spiriva] 2 puff IH DAILY #30 cap.w.dev 04/01/20 09/12/20 Unknown Rx Ubidecarenone [Co Q-10] 10 mg PO BID #60 tab 04/01/20 09/12/20 03/29/20 Rx cilostazoL [Pletal] 50 mg PO BID 30 Days tablet 04/01/20 09/12/20 Unknown Rx oxyCODONE /ACETAMINOPHEN [Percocet 2 tab PO Q6H PRN tablet 04/01/20 09/12/20 Unknown Rx 5/325 mg] Phosphorus #1 [K-Phos Neutral] 250 mg PO QID 2 Days #8 tablet 09/14/20 Unknown Rx Active Medications: Generic Name Dose Route Start Last Admin Trade Name Freq PRN Reason Stop Dose Admin Acetaminophen 650 mg 12/21/20 11:51 12/25/20 20:35 Acetaminophen 650 Mg Rect Supp SD 650 mg Q4H PRN Administration TEMP >/=100.4 Bisacodyl 10 mg 12/30/20 11:00 12/31/20 09:49 Bisacodyl 10 Mg Rect Supp SD 10 mg QDAY ASCENCION Administration Dextrose 50 ml 12/24/20 10:49 Dextrose 50% In Water (25gm) 50 Ml Syringe IV Q30MIN PRN Hypoglycemia Protocol Famotidine 20 mg 12/26/20 10:00 12/31/20 09:49 Famotidine 20 Mg/2 Ml Inj IV 20 mg DAILY ASCENCION Administration Fentanyl 50 mcg 12/20/20 21:58 12/21/20 03:46 Fentanyl 100 Mcg/2 Ml Inj IV 50 mcg Q10MIN PRN Administration ANALGESIA Hydrophilic Ointment 1 applic 12/20/20 21:58 Lip Therapy Vaseline TP Q2HR PRN Dry Lips Fentanyl Citrate 2,000 mcg in 100 mls @ 6.01 mls/hr 12/20/20 22:00 01/01/21 05:59 Fentanyl Drip Premix IV 4 mcg/kg/hr TITR ASCENCION 24.04 mls/hr Administration Protocol 1 MCG/KG/HR Propofol 1,000 mg in 100 mls @ 3.606 mls/hr 12/20/20 22:00 01/01/21 08:55 Diprivan 10 Mg/Ml IV 30 mcg/kg/min TITR ASCENCION 21.636 mls/hr Administration Protocol 5 MCG/KG/MIN NORepinephrine/NS 8 MG-250 ML 8 mg in 250 mls @ 3.75 mls/hr 12/21/20 09:00 01/01/21 07:47 Norepinephrine/Ns 8 Mg-250 Ml (Double Conc) IV 2 mcg/min TITRATE ASCENCION 3.75 mls/hr Titration Protocol 2 MCG/MIN Vasopressin 20 unit/ Sodium 101 mls @ 9.09 mls/hr 12/24/20 09:00 01/01/21 03:21 Chloride IV 0.03 units/min TITR ASCENCION 9.09 mls/hr Administration Protocol 0.03 UNITS/MIN Piperacillin Sod/Tazobactam Sod 4.5 gm in 100 mls @ 200 mls/hr 12/26/20 18:00 01/01/21 06:30 Zosyn/Ns 4.5gm/100ml IV 200 mls/hr Q12H ASCENCION Administration Protocol Fluconazole 200 mg in 100 mls @ 100 mls/hr 12/26/20 10:00 12/31/20 12:18 Diflucan IV Infused Q24H [facility] Infusion Protocol Sodium Chloride 100 mls @ 999 mls/hr 12/30/20 13:00 Nacl 0.9% IV MARILU PRN Hypotension Amino Acids/Electrolytes/Dextrose 2,400 mls @ 100 mls/hr 12/31/20 20:00 12/31/20 20:01 Tpn Adult IV 01/01/21 19:59 100 mls/hr DAILY@1999 [facility] Administration Protocol Amino Acids/Electrolytes/Dextrose 2,400 mls @ 100 mls/hr 01/01/21 20:00 Tpn Adult IV 01/02/21 19:59 DAILY@1999 [facility] Protocol Insulin Human Regular 0 units 12/28/20 00:00 01/01/21 06:24 Insulin Regular, Human 100 Units/1 Ml SUB-Q Not Given Q6H [facility] Protocol Multi-Ingred Cream/Lotion/Oil/Oint 1 applic 12/20/20 21:58 Mineral Oil/Petrolatum, White Ophth Oint 3.5 Gm OU Q4HR PRN Dry Eye(s) Sodium Chloride 10 ml 12/20/20 22:00 12/31/20 22:10 Sodium Chloride 0.9% 10 Ml Flush Syringe IV 10 ml BID ASCENCION Administration Sodium Chloride 10 ml 12/20/20 16:42 Sodium Chloride 0.9% 10 Ml Flush Syringe IV PRN PRN LINE FLUSH
--- NOTE | 2021-01-01 13:10 | Operative Report ---
Operative Report Operative Report: Date: January 01, 2021 Surgeon: Freda Tena MD Cooker Sulfite surgeon: Julia Brumfield DO Preop diagnosis: Open abdomen status post small bowel resection for incarcerated inguinal hernia Postop diagnosis: same as preop Anesthesia:GETA Procedure performed:1, myocutaneous flap creation, 2. Abdominal wall component separation, 3. Placement of phasix mesh Indication: 60-year-old male who is here for this fifth procedure this admission, with his original pathology being small bowel necrosis secondary to incarceration of ventral hernia. His abdomen have been left open from previous procedures due to hemodynamic instability, sepsis, and additional segmental small bowel resections for ischemia. He has been stable over the last few days and today he is here for closure of his abdomen. Details of procedure: Patient was brought into the OR suite and laid in supine position. His lower extremity SCDs were turned on. The ABThera wound VAC was removed, and his abdomen was prepped and draped in sterile fashion. Upon examination of his abdominal cavity his previous anastomosis appeared to be intact there were no signs of perforation or bowel ischemia. At this time it was felt satisfactory to close his abdominal wall. Due to his previous history is of multiple abdominal wall hernias, including previous hernia repair failures it was decided to place a large phasic's mesh and approximate his fascia to the midline as best as possible. Due to some fascia loss from previous fascial excision from prior procedures, and rectus retraction from body habitus and previous hernias. Extensive myocutaneous flaps a component separation comprised of releasing the fascia at the external oblique and rectus lateral border was performed. This allowed better medialization of the fascia. Patient also had a large ventral hernia sac on the right side of his abdomen that was excised and sent off to pathology as specimen. A large 30 x 35 cm piece of phasix mesh was used in place Seprafilm side down to the bowel. The abdominal wall defect measured approximately 10 x 15 cm. The under laying mesh was secured 360 degrees to the fascia using 0 Prolene in a parachute method. After insuring were significant to allow bowel to creep on top of the mesh, the Prolenes were secured down to the fascia. The subcutaneous layer was irrigated, the midline fascia was closed with #1 PDS. Two 19 Kinyarwanda LAURA drains were placed on either side of his midline between the fascia and the subcutaneous tissue. Soraya powder was used for generalized hemostasis for oozing. The Lindy's fascia was closed with 2-0 Vicryl. The skin was closed with nav. This was followed by sterile dressing. All counts were correct x2. Patient was then transferred back to the ICU bed and taken to critical care unit in stable condition. Specimen: Hernia sac EBL: 30 mL Complication: None immediate
--- NOTE | 2021-01-01 13:23 | Post Anesthesia Evaluation ---
- Post Anesthesia Evaluation Patient Participated: No Airway Patent: Yes (intubated) Stable Respiratory Function: Yes (on mechanical ventilation) Nausea/Vomiting: No Temp > 96.8F: Yes Pain Manageable: Yes Adequeate Hydration: Yes Anesthesia Complications: No Block Receding Appropriately: Not Applicable Patient on Ventilator: Yes (Vt 600, R-16, PEEP-8, FiO2 100%)
--- NOTE | 2021-01-01 13:23 | Progress Note ---
Assessment and Plan Cultures: 12/20/2020 sputum culture: Mold 12/20/2020 blood culture: No growth 12/20/2020 urine culture: Usual skin giorgio A/P: 60-year-old male with obesity, hypertension, tobacco abuse, coronary artery disease, admitted to the hospital on 12/20/2020 with: #Septic shock: Secondary to intra-abdominal source, peritonitis. Patient with necrotic bowel secondary to incarcerated ventral hernia. Status post exploratory laparotomy, extensive adhesiolysis, small bowel resection and peritoneal lavage along with ABThera VAC placement on 12/20/2020, replacement on 12/29/2020 with small bowel resection and anastomosis. Remains on pressors. Back to OR on 01/01/2021 for myocutaneous flap creation, Abdominal wall component separation, Placement of phasix mesh. #JONI: Renally dose antibiotics. Requiring HD per nephrology. #Morbid obesity #Sputum with mold: likely colonization/contaminant. Isolate sent to reference lab. Recs: -continue renally dosed Zosyn, Fluconazole 200 mg daily -continue antibiotics until 5 days post his final surgery depending n clinical course -monitor pressor requirements and WBC Lissette Rizzo MD, FACP [facility] O: [phone] F: [phone] Subjective Date of service: 01/01/21 Principal diagnosis: SBO and necrosis of large part of small intestine Interval history: Afebrile. Remains on the vent. On pressors. Objective - Exam Narrative Exam: Physical Exam: Constitutional: sedated, intubated, on the vent Head, Ears, Nose: Normocephalic, atraumatic. External ears, nose normal Eyes: Conjunctivae/corneas clear. No icterus. No ptosis. Neck: intubated Oral: intubated Cardiovascular: S1, S2 + Respiratory: AE fair bilaterally and equal GI: dressing + bowel sounds hypo Musculoskeletal: No pedal edema, no cyanosis. Skin: No rash or abscess Hem/Lymphatic: No palpable cervical or supraclavicular nodes. No lymphangitis Psych: no agitation Neurological: sedated, intubated, on the vent, exam limited - Constitutional Vitals: Vital Signs Temp Pulse Resp BP Pulse Ox 98.7 F 96 H 16 96/45 96 01/01/21 07:00 01/01/21 07:34 01/01/21 05:15 01/01/21 07:34 01/01/21 07:34 Temperature -Last 24 Hours Temperature 98.7 F Temperature 98.6 F Temperature 98.8 F Temperature 98.8 F Temperature 98.9 F Temperature 98.9 F Temperature 98.4 F - Labs CBC & Chem 7: 12/31/20 16:23 01/01/21 05:50 Labs: Abnormal lab results 12/31/20 12/31/20 01/01/21 Range/Units 16:23 23:21 04:00 WBC 18.0 H (4.5-11.0) K/mm3 RBC 2.75 L (3.65-5.03) M/mm3 Hgb 7.7 L (11.8-15.2) gm/dl Hct 23.9 L (35.5-45.6) % RDW 15.6 H (13.2-15.2) % Seg Neuts % (Manual) 91.0 H (40.0-70.0) % Lymphocytes % (Manual) 6.0 L (13.4-35.0) % Seg Neutrophils # Man 16.4 H (1.8-7.7) K/mm3 Lymphocytes # (Manual) 1.1 L (1.2-5.4) K/mm3 ABG pH 7.264 L (7.320-7.450) POC ABG pO2 74.8 L (83-108) mmHg ABG Hemoglobin 7.1 L (12.0-17.5) ABG Oxyhemoglobin 92.1 L (94-98) ABG Sodium 124.9 L (136.0-145.0) mmol/L ABG Chloride 95.0 L (98-107) mmol/L ABG Glucose 111 H (65-95) mg/dL Carboxyhemoglobin 1.7 H (0.5-1.5) Sodium (137-145) mmol/L Chloride (98-107) mmol/L Carbon Dioxide (22-30) mmol/L BUN (9-20) mg/dL Creatinine (0.8-1.3) mg/dL POC Glucose 125 H (70-105) mg/dL Calcium (8.4-10.2) mg/dL AST (5-40) units/L Total Protein (6.3-8.2) g/dL Albumin (3.9-5) g/dL Arterial Blood Glucose 111 H (65-95) mg/dL Arterial Blood Ionized Calcium 4.0 L (4.6-5.3) mg/dL 01/01/21 Range/Units 05:50 WBC (4.5-11.0) K/mm3 RBC (3.65-5.03) M/mm3 Hgb (11.8-15.2) gm/dl Hct (35.5-45.6) % RDW (13.2-15.2) % Seg Neuts % (Manual) (40.0-70.0) % Lymphocytes % (Manual) (13.4-35.0) % Seg Neutrophils # Man (1.8-7.7) K/mm3 Lymphocytes # (Manual) (1.2-5.4) K/mm3 ABG pH (7.320-7.450) POC ABG pO2 (83-108) mmHg ABG Hemoglobin (12.0-17.5) ABG Oxyhemoglobin (94-98) ABG Sodium (136.0-145.0) mmol/L ABG Chloride (98-107) mmol/L ABG Glucose (65-95) mg/dL Carboxyhemoglobin (0.5-1.5) Sodium 131 L (137-145) mmol/L Chloride 93.3 L (98-107) mmol/L Carbon Dioxide 21 L (22-30) mmol/L BUN 67 H (9-20) mg/dL Creatinine 4.2 H (0.8-1.3) mg/dL POC Glucose (70-105) mg/dL Calcium 7.1 L (8.4-10.2) mg/dL AST 60 H (5-40) units/L Total Protein 4.8 L (6.3-8.2) g/dL Albumin 1.4 L (3.9-5) g/dL Arterial Blood Glucose (65-95) mg/dL Arterial Blood Ionized Calcium (4.6-5.3) mg/dL
[2021-01-01] MEDS: FAMOTIDINE 20 MG/2 ML INJ IV SCH (14:41)
[2021-01-01] MEDS: FLUCONAZOLE 200 MG 200 MG/100 ML BAG IV SCH (14:41)
--- NOTE | 2021-01-01 18:48 | Progress Note ---
Assessment and Plan Imp: 1. Ischemic bowel with acute peritonitis 2. Severe sepsis with shock 3. Acute respiratory failure, hypoxia 4. JONI 5. Morbid obesity 6. Lactic acidosis Rec: 1. Increased RR to 28 and PEEP to +12; leave TV at 500 and wean FiO2 to keep sats 88% or >; repeat ABG better this afternoon 2. ABX per ID 3. Wean pressors to keep MAP > 65 4. TPN, GI/DVT PPx 5. Electrolyte correction via TPN and HD; remove volume wiith HD if BP allows 6. Keep sedated for now; not ready for spontaneous breathing trials 7. Further plans pending clinical course 8. Prognosis guarded; no family present CCt 31 minutes Subjective Date of service: 01/01/21 Principal diagnosis: SBO and necrosis of large part of small intestine Interval history: HD done yesterday. Had abdominal closure today. Sedated. On Vasopressin but off Levophed. He cannot give history. Active Medications Acetaminophen (Acetaminophen 650 Mg Rect Supp) 650 mg MI Q4H PRN PRN Reason: TEMP >/=100.4 Last Admin: 12/25/20 20:35 Dose: 650 mg Documented by: Bisacodyl (Bisacodyl 10 Mg Rect Supp) 10 mg MI QDAY ASCENCION Last Admin: 01/01/21 14:42 Dose: Not Given Documented by: Dextrose (Dextrose 50% In Water (25gm) 50 Ml Syringe) 50 ml IV Q30MIN PRN; Protocol PRN Reason: Hypoglycemia Famotidine (Famotidine 20 Mg/2 Ml Inj) 20 mg IV DAILY ASCENCION Last Admin: 01/01/21 14:41 Dose: 20 mg Documented by: Fentanyl (Fentanyl 100 Mcg/2 Ml Inj) 50 mcg IV Q10MIN PRN PRN Reason: ANALGESIA Last Admin: 12/21/20 03:46 Dose: 50 mcg Documented by: Hydrophilic Ointment (Lip Therapy Vaseline) 1 applic TP Q2HR PRN PRN Reason: Dry Lips Fentanyl Citrate (Fentanyl Drip Premix) 2,000 mcg in 100 mls @ 6.01 mls/hr IV TITR ASCENCION; Protocol Last Admin: 01/01/21 17:24 Dose: 4 mcg/kg/hr, 24.04 mls/hr Documented by: Propofol (Diprivan 10 Mg/Ml) 1,000 mg in 100 mls @ 3.606 mls/hr IV TITR ASCENCION; Protocol Last Admin: 01/01/21 18:12 Dose: 30 mcg/kg/min, 21.636 mls/hr Documented by: NORepinephrine/NS 8 MG-250 ML (Norepinephrine/Ns 8 Mg-250 Ml (Double Conc)) 8 mg in 250 mls @ 3.75 mls/hr IV TITRATE ASCENCION; Protocol Last Titration: 01/01/21 07:47 Dose: 2 mcg/min, 3.75 mls/hr Documented by: Vasopressin 20 unit/ Sodium (Chloride) 101 mls @ 9.09 mls/hr IV TITR ASCENCION; Protocol Last Admin: 01/01/21 16:40 Dose: 0.03 units/min, 9.09 mls/hr Documented by: Piperacillin Sod/Tazobactam Sod (Zosyn/Ns 4.5gm/100ml) 4.5 gm in 100 mls @ 200 mls/hr IV Q12H ASCENCION; Protocol Last Admin: 01/01/21 17:12 Dose: 200 mls/hr Documented by: Fluconazole (Diflucan) 200 mg in 100 mls @ 100 mls/hr IV Q24H ASCENCION; Protocol Last Admin: 01/01/21 14:41 Dose: 100 mls/hr Documented by: Sodium Chloride (Nacl 0.9%) 100 mls @ 999 mls/hr IV MARILU PRN PRN Reason: Hypotension Amino Acids/Electrolytes/Dextrose (Tpn Adult) 2,400 mls @ 100 mls/hr IV DAILY@1999 ASCENCION; Protocol Stop: 01/01/21 19:59 Last Admin: 12/31/20 20:01 Dose: 100 mls/hr Documented by: Amino Acids/Electrolytes/Dextrose (Tpn Adult) 2,400 mls @ 100 mls/hr IV DAILY@1999 ASCENCION; Protocol Stop: 01/02/21 19:59 Insulin Human Regular (Insulin Regular, Human 100 Units/1 Ml) 0 units SUB-Q Q6H ASCENICON; Protocol Last Admin: 01/01/21 17:28 Dose: Not Given Documented by: Multi-Ingred Cream/Lotion/Oil/Oint (Mineral Oil/Petrolatum, White Ophth Oint 3.5 Gm) 1 applic OU Q4HR PRN PRN Reason: Dry Eye(s) Sodium Chloride (Sodium Chloride 0.9% 10 Ml Flush Syringe) 10 ml IV BID ASCENCION Last Admin: 01/01/21 14:42 Dose: 10 ml Documented by: Sodium Chloride (Sodium Chloride 0.9% 10 Ml Flush Syringe) 10 ml IV PRN PRN PRN Reason: LINE FLUSH Objective Vital Signs - 12hr 01/01/21 01/01/21 01/01/21 07:00 07:34 13:00 Temperature 98.7 F 99.3 F Pulse Rate 96 H 113 H Respiratory 16 Rate Blood Pressure 96/45 146/72 O2 Sat by Pulse 96 95 Oximetry 01/01/21 01/01/21 01/01/21 13:05 13:10 13:15 Temperature 99.5 F Pulse Rate 113 H 111 H 111 H Respiratory 16 16 16 Rate Blood Pressure 177/80 144/74 148/75 O2 Sat by Pulse 92 92 92 Oximetry 01/01/21 01/01/21 15:22 17:29 Temperature 98.1 F Pulse Rate 101 H Respiratory Rate Blood Pressure 126/71 O2 Sat by Pulse 98 Oximetry Constitutional: other (critically ill on ventilator) Eyes: non-icteric ENT: oropharynx moist Neck: supple Effort: normal Ascultation: Bilateral: other (coarse BS bilaterally) Cardiovascular: other (tachy, RR; no mrg) Gastrointestinal: other (abdomen open) Integumentary: normal Extremities: no cyanosis, no edema, pink and warm Neurologic: other (sedated) CBC and BMP: 12/31/20 16:23 01/01/21 05:50 ABG, PT/INR, D-dimer: ABG ABG pH 7.207 (7.320-7.450) L 01/01/21 15:55 POC ABG pCO2 45.9 mmHg (32.0-48.0) 01/01/21 15:55 ABG pCO2 51.0 mm Hg 12/20/20 21:30 POC ABG pO2 138.4 mmHg (83-108) H 01/01/21 15:55 ABG pO2 104.4 mm Hg (80.0-90.0) H 12/20/20 21:30 POC ABG HCO3 17.8 01/01/21 15:55 ABG O2 Saturation 98.6 (0-100) 01/01/21 15:55 Abnormal lab findings: Abnormal Labs 06/08/1112/20/20 12/20/20 13:58 13:58 13:58 WBC 41.1 H* RBC 5.59 H Hgb 16.2 H Hct 47.7 H MCHC RDW 15.5 H Plt Count 486 H Seg Neuts % (Manual) Lymphocytes % (Manual) Seg Neutrophils # Man Lymphocytes # (Manual) Monocytes # (Manual) APTT ABG pH POC ABG pCO2 POC ABG pO2 ABG pO2 ABG Hemoglobin ABG Oxyhemoglobin ABG Sodium ABG Potassium ABG Chloride ABG Glucose Carboxyhemoglobin Sodium 130 L Potassium Chloride 80.7 L Carbon Dioxide BUN 37 H Creatinine Glucose 101 H POC Glucose Lactic Acid 3.20 H* Calcium Ionized Calcium Phosphorus Magnesium AST Alkaline Phosphatase 142 H Total Protein 6.2 L Albumin 2.2 L Triglycerides Arterial Blood Glucose Arterial Blood Ionized Calcium Urine Creatinine 12/20/20 12/20/20 12/20/20 13:58 20:35 21:30 WBC RBC Hgb Hct MCHC RDW Plt Count Seg Neuts % (Manual) Lymphocytes % (Manual) Seg Neutrophils # Man Lymphocytes # (Manual) Monocytes # (Manual) APTT 49.4 H ABG pH 7.313 L POC ABG pCO2 POC ABG pO2 ABG pO2 104.4 H ABG Hemoglobin ABG Oxyhemoglobin ABG Sodium ABG Potassium ABG Chloride ABG Glucose Carboxyhemoglobin Sodium Potassium Chloride Carbon Dioxide BUN Creatinine Glucose POC Glucose 122 H Lactic Acid Calcium Ionized Calcium Phosphorus Magnesium AST Alkaline Phosphatase Total Protein Albumin Triglycerides Arterial Blood Glucose Arterial Blood Ionized Calcium Urine Creatinine 12/21/20 12/21/20 12/21/20 03:06 08:14 08:14 WBC 23.9 H RBC Hgb Hct MCHC RDW 15.7 H Plt Count Seg Neuts % (Manual) 91.0 H Lymphocytes % (Manual) 3.0 L Seg Neutrophils # Man 21.7 H Lymphocytes # (Manual) 0.7 L Monocytes # (Manual) 1.4 H APTT ABG pH 7.464 H POC ABG pCO2 POC ABG pO2 202.9 H ABG pO2 ABG Hemoglobin ABG Oxyhemoglobin ABG Sodium 133.7 L ABG Potassium ABG Chloride ABG Glucose 122 H Carboxyhemoglobin Sodium Potassium Chloride Carbon Dioxide BUN 46 H Creatinine Glucose 103 H POC Glucose Lactic Acid Calcium 6.6 L D Ionized Calcium Phosphorus Magnesium AST Alkaline Phosphatase Total Protein 5.4 L Albumin 2.3 L Triglycerides Arterial Blood Glucose 122 H Arterial Blood Ionized Calcium 3.5 L Urine Creatinine 12/21/20 12/21/20 12/22/20 17:18 21:28 04:45 WBC 22.9 H RBC Hgb Hct MCHC RDW 15.7 H Plt Count Seg Neuts % (Manual) Lymphocytes % (Manual) Seg Neutrophils # Man Lymphocytes # (Manual) Monocytes # (Manual) APTT ABG pH POC ABG pCO2 POC ABG pO2 ABG pO2 ABG Hemoglobin ABG Oxyhemoglobin ABG Sodium ABG Potassium ABG Chloride ABG Glucose Carboxyhemoglobin Sodium Potassium Chloride Carbon Dioxide BUN Creatinine Glucose POC Glucose 108 H Lactic Acid Calcium Ionized Calcium 4.1 L Phosphorus Magnesium AST Alkaline Phosphatase Total Protein Albumin Triglycerides Arterial Blood Glucose Arterial Blood Ionized Calcium Urine Creatinine 12/22/20 12/22/20 12/22/20 04:45 05:00 11:38 WBC RBC Hgb Hct MCHC RDW Plt Count Seg Neuts % (Manual) Lymphocytes % (Manual) Seg Neutrophils # Man Lymphocytes # (Manual) Monocytes # (Manual) APTT ABG pH 7.462 H POC ABG pCO2 POC ABG pO2 ABG pO2 ABG Hemoglobin ABG Oxyhemoglobin ABG Sodium ABG Potassium ABG Chloride ABG Glucose 118 H Carboxyhemoglobin Sodium 146 H Potassium Chloride Carbon Dioxide BUN 45 H Creatinine Glucose 116 H POC Glucose 115 H Lactic Acid Calcium 6.9 L Ionized Calcium Phosphorus Magnesium AST Alkaline Phosphatase Total Protein Albumin Triglycerides Arterial Blood Glucose 118 H Arterial Blood Ionized Calcium 3.8 L Urine Creatinine 12/22/20 12/23/20 12/23/20 23:26 04:43 04:45 WBC 22.2 H RBC Hgb Hct MCHC RDW 16.1 H Plt Count Seg Neuts % (Manual) Lymphocytes % (Manual) Seg Neutrophils # Man Lymphocytes # (Manual) Monocytes # (Manual) APTT ABG pH POC ABG pCO2 POC ABG pO2 ABG pO2 ABG Hemoglobin ABG Oxyhemoglobin ABG Sodium 147.4 H ABG Potassium ABG Chloride 112.0 H ABG Glucose 130 H Carboxyhemoglobin 0.4 L Sodium Potassium Chloride Carbon Dioxide BUN Creatinine Glucose POC Glucose 110 H Lactic Acid Calcium Ionized Calcium Phosphorus Magnesium AST Alkaline Phosphatase Total Protein Albumin Triglycerides Arterial Blood Glucose 130 H Arterial Blood Ionized Calcium 3.8 L Urine Creatinine 12/23/20 12/23/20 12/23/20 04:45 05:17 11:22 WBC RBC Hgb Hct MCHC RDW Plt Count Seg Neuts % (Manual) Lymphocytes % (Manual) Seg Neutrophils # Man Lymphocytes # (Manual) Monocytes # (Manual) APTT ABG pH POC ABG pCO2 POC ABG pO2 ABG pO2 ABG Hemoglobin ABG Oxyhemoglobin ABG Sodium ABG Potassium ABG Chloride ABG Glucose Carboxyhemoglobin Sodium 154 H D Potassium Chloride 110.9 H Carbon Dioxide BUN 54 H Creatinine 1.8 H Glucose 115 H POC Glucose 116 H 130 H Lactic Acid Calcium 7.0 L Ionized Calcium Phosphorus Magnesium AST Alkaline Phosphatase Total Protein Albumin Triglycerides Arterial Blood Glucose Arterial Blood Ionized Calcium Urine Creatinine 12/23/20 12/23/20 12/23/20 12:15 12:15 23:15 WBC RBC Hgb Hct MCHC RDW Plt Count Seg Neuts % (Manual) Lymphocytes % (Manual) Seg Neutrophils # Man Lymphocytes # (Manual) Monocytes # (Manual) APTT ABG pH POC ABG pCO2 POC ABG pO2 ABG pO2 ABG Hemoglobin ABG Oxyhemoglobin ABG Sodium ABG Potassium ABG Chloride ABG Glucose Carboxyhemoglobin Sodium 154 H Potassium Chloride Carbon Dioxide BUN Creatinine 1.5 H Glucose POC Glucose 132 H Lactic Acid Calcium Ionized Calcium Phosphorus Magnesium AST Alkaline Phosphatase Total Protein Albumin Triglycerides Arterial Blood Glucose Arterial Blood Ionized Calcium Urine Creatinine 78.1 H 12/24/20 12/24/20 12/24/20 04:19 04:30 04:30 WBC 18.3 H RBC Hgb Hct MCHC RDW 16.5 H Plt Count Seg Neuts % (Manual) Lymphocytes % (Manual) Seg Neutrophils # Man Lymphocytes # (Manual) Monocytes # (Manual) APTT ABG pH POC ABG pCO2 POC ABG pO2 ABG pO2 ABG Hemoglobin ABG Oxyhemoglobin ABG Sodium 149.7 H ABG Potassium ABG Chloride 116.0 H ABG Glucose 180 H Carboxyhemoglobin Sodium 155 H Potassium Chloride 116.1 H Carbon Dioxide BUN 52 H Creatinine 1.5 H Glucose 175 H POC Glucose Lactic Acid Calcium 6.8 L Ionized Calcium Phosphorus Magnesium 3.00 H AST Alkaline Phosphatase Total Protein 5.7 L Albumin 1.8 L Triglycerides Arterial Blood Glucose 180 H Arterial Blood Ionized Calcium 3.7 L Urine Creatinine 12/24/20 12/24/20 12/24/20 05:24 11:21 18:05 WBC RBC Hgb Hct MCHC RDW Plt Count Seg Neuts % (Manual) Lymphocytes % (Manual) Seg Neutrophils # Man Lymphocytes # (Manual) Monocytes # (Manual) APTT ABG pH POC ABG pCO2 POC ABG pO2 ABG pO2 ABG Hemoglobin ABG Oxyhemoglobin ABG Sodium ABG Potassium ABG Chloride ABG Glucose Carboxyhemoglobin Sodium Potassium Chloride Carbon Dioxide BUN Creatinine Glucose POC Glucose 153 H 154 H 133 H Lactic Acid Calcium Ionized Calcium Phosphorus Magnesium AST Alkaline Phosphatase Total Protein Albumin Triglycerides Arterial Blood Glucose Arterial Blood Ionized Calcium Urine Creatinine 12/25/20 12/25/20 12/25/20 04:00 07:00 07:00 WBC 17.6 H RBC Hgb Hct MCHC 31 L RDW 16.0 H Plt Count Seg Neuts % (Manual) Lymphocytes % (Manual) Seg Neutrophils # Man Lymphocytes # (Manual) Monocytes # (Manual) APTT ABG pH POC ABG pCO2 POC ABG pO2 ABG pO2 ABG Hemoglobin ABG Oxyhemoglobin ABG Sodium 152.5 H ABG Potassium ABG Chloride 119.0 H ABG Glucose 136 H Carboxyhemoglobin Sodium Potassium Chloride Carbon Dioxide BUN Creatinine Glucose POC Glucose Lactic Acid Calcium Ionized Calcium Phosphorus Magnesium 2.70 H AST Alkaline Phosphatase Total Protein Albumin Triglycerides Arterial Blood Glucose 136 H Arterial Blood Ionized Calcium 3.7 L Urine Creatinine 12/25/20 12/25/20 12/25/20 07:00 11:24 16:32 WBC RBC Hgb Hct MCHC RDW Plt Count Seg Neuts % (Manual) Lymphocytes % (Manual) Seg Neutrophils # Man Lymphocytes # (Manual) Monocytes # (Manual) APTT ABG pH POC ABG pCO2 POC ABG pO2 ABG pO2 ABG Hemoglobin ABG Oxyhemoglobin ABG Sodium ABG Potassium ABG Chloride ABG Glucose Carboxyhemoglobin Sodium 156 H Potassium Chloride 118.0 H Carbon Dioxide BUN 44 H Creatinine 1.7 H Glucose 126 H POC Glucose 110 H 126 H Lactic Acid Calcium 6.9 L Ionized Calcium Phosphorus Magnesium AST Alkaline Phosphatase Total Protein Albumin Triglycerides Arterial Blood Glucose Arterial Blood Ionized Calcium Urine Creatinine 12/25/20 12/25/20 12/26/20 18:18 23:23 03:30 WBC RBC Hgb Hct MCHC RDW Plt Count Seg Neuts % (Manual) Lymphocytes % (Manual) Seg Neutrophils # Man Lymphocytes # (Manual) Monocytes # (Manual) APTT ABG pH POC ABG pCO2 POC ABG pO2 ABG pO2 ABG Hemoglobin 11.8 L ABG Oxyhemoglobin ABG Sodium ABG Potassium 4.7 H ABG Chloride 114.0 H ABG Glucose 132 H Carboxyhemoglobin Sodium 151 H Potassium Chloride 114.3 H Carbon Dioxide BUN 51 H Creatinine 2.6 H D Glucose 122 H POC Glucose 115 H Lactic Acid Calcium 6.4 L Ionized Calcium Phosphorus Magnesium AST Alkaline Phosphatase Total Protein Albumin Triglycerides Arterial Blood Glucose 132 H Arterial Blood Ionized Calcium 3.6 L Urine Creatinine 12/26/20 12/26/20 12/26/20 04:55 06:01 06:01 WBC 21.6 H RBC Hgb Hct MCHC 31 L RDW 16.5 H Plt Count 136 L Seg Neuts % (Manual) Lymphocytes % (Manual) Seg Neutrophils # Man Lymphocytes # (Manual) Monocytes # (Manual) APTT ABG pH POC ABG pCO2 POC ABG pO2 ABG pO2 ABG Hemoglobin ABG Oxyhemoglobin ABG Sodium ABG Potassium ABG Chloride ABG Glucose Carboxyhemoglobin Sodium 173 H* D Potassium 6.1 H* D Chloride 137.0 H Carbon Dioxide BUN 73 H Creatinine 3.8 H Glucose 125 H POC Glucose 112 H Lactic Acid Calcium 6.2 L Ionized Calcium Phosphorus 5.70 H D Magnesium 2.90 H AST Alkaline Phosphatase Total Protein Albumin Triglycerides Arterial Blood Glucose Arterial Blood Ionized Calcium Urine Creatinine 12/26/20 12/26/20 12/26/20 08:33 11:19 22:00 WBC RBC Hgb Hct MCHC RDW Plt Count Seg Neuts % (Manual) Lymphocytes % (Manual) Seg Neutrophils # Man Lymphocytes # (Manual) Monocytes # (Manual) APTT ABG pH POC ABG pCO2 POC ABG pO2 ABG pO2 ABG Hemoglobin ABG Oxyhemoglobin ABG Sodium ABG Potassium ABG Chloride ABG Glucose Carboxyhemoglobin Sodium 147 H D Potassium 5.8 H D Chloride 108.8 H Carbon Dioxide 21 L BUN 68 H 68 H Creatinine 3.8 H 4.1 H Glucose 144 H 154 H POC Glucose 144 H Lactic Acid Calcium 6.5 L 5.8 L* Ionized Calcium Phosphorus Magnesium AST 215 H Alkaline Phosphatase Total Protein 4.7 L Albumin 1.5 L Triglycerides Arterial Blood Glucose Arterial Blood Ionized Calcium Urine Creatinine 12/26/20 12/26/20 12/27/20 23:13 Unknown 00:25 WBC RBC Hgb 11.1 L Hct MCHC RDW Plt Count Seg Neuts % (Manual) Lymphocytes % (Manual) Seg Neutrophils # Man Lymphocytes # (Manual) Monocytes # (Manual) APTT ABG pH POC ABG pCO2 POC ABG pO2 ABG pO2 ABG Hemoglobin ABG Oxyhemoglobin ABG Sodium ABG Potassium ABG Chloride ABG Glucose Carboxyhemoglobin Sodium Potassium Chloride Carbon Dioxide BUN Creatinine Glucose POC Glucose 163 H Lactic Acid Calcium Ionized Calcium Phosphorus 5.60 H Magnesium AST Alkaline Phosphatase Total Protein Albumin Triglycerides Arterial Blood Glucose Arterial Blood Ionized Calcium Urine Creatinine 12/27/20 12/27/20 12/27/20 02:57 04:15 04:15 WBC 28.5 H RBC Hgb 11.2 L Hct MCHC 31 L RDW 16.5 H Plt Count 130 L Seg Neuts % (Manual) Lymphocytes % (Manual) Seg Neutrophils # Man Lymphocytes # (Manual) Monocytes # (Manual) APTT ABG pH 7.238 L POC ABG pCO2 POC ABG pO2 139.1 H ABG pO2 ABG Hemoglobin 11.2 L ABG Oxyhemoglobin ABG Sodium 133.8 L ABG Potassium 5.2 H ABG Chloride ABG Glucose 182 H Carboxyhemoglobin Sodium 136 L Potassium 6.0 H Chloride Carbon Dioxide 18 L BUN 68 H Creatinine 4.1 H Glucose 166 H POC Glucose Lactic Acid Calcium 6.2 L Ionized Calcium Phosphorus 7.30 H D Magnesium AST Alkaline Phosphatase Total Protein Albumin Triglycerides 164 H Arterial Blood Glucose 182 H Arterial Blood Ionized Calcium 3.4 L Urine Creatinine 12/27/20 12/27/20 12/27/20 04:50 10:51 11:17 WBC RBC Hgb Hct MCHC RDW Plt Count Seg Neuts % (Manual) Lymphocytes % (Manual) Seg Neutrophils # Man Lymphocytes # (Manual) Monocytes # (Manual) APTT ABG pH POC ABG pCO2 POC ABG pO2 ABG pO2 ABG Hemoglobin ABG Oxyhemoglobin ABG Sodium ABG Potassium ABG Chloride ABG Glucose Carboxyhemoglobin Sodium Potassium Chloride Carbon Dioxide BUN Creatinine Glucose POC Glucose 140 H 113 H 154 H Lactic Acid Calcium Ionized Calcium Phosphorus Magnesium AST Alkaline Phosphatase Total Protein Albumin Triglycerides Arterial Blood Glucose Arterial Blood Ionized Calcium Urine Creatinine 12/27/20 12/27/20 12/27/20 12:40 14:40 23:17 WBC RBC Hgb Hct MCHC RDW Plt Count Seg Neuts % (Manual) Lymphocytes % (Manual) Seg Neutrophils # Man Lymphocytes # (Manual) Monocytes # (Manual) APTT ABG pH POC ABG pCO2 POC ABG pO2 ABG pO2 ABG Hemoglobin ABG Oxyhemoglobin ABG Sodium ABG Potassium ABG Chloride ABG Glucose Carboxyhemoglobin Sodium 135 L Potassium Chloride Carbon Dioxide 21 L BUN 62 H Creatinine 3.8 H Glucose 132 H POC Glucose 130 H Lactic Acid Calcium 5.6 L* Ionized Calcium 3.3 L Phosphorus Magnesium AST Alkaline Phosphatase Total Protein Albumin Triglycerides Arterial Blood Glucose Arterial Blood Ionized Calcium Urine Creatinine 12/28/20 12/28/20 12/28/20 05:36 07:08 07:28 WBC 27.2 H RBC 3.50 L Hgb 9.6 L Hct 30.8 L MCHC 31 L RDW 16.1 H Plt Count 111 L Seg Neuts % (Manual) 95.0 H Lymphocytes % (Manual) Seg Neutrophils # Man 25.8 H Lymphocytes # (Manual) 0.0 L Monocytes # (Manual) 1.1 H APTT ABG pH 7.200 L POC ABG pCO2 POC ABG pO2 67.2 L ABG pO2 ABG Hemoglobin 10.3 L ABG Oxyhemoglobin 89.6 L ABG Sodium 127.8 L ABG Potassium 5.1 H ABG Chloride ABG Glucose 132 H Carboxyhemoglobin 0.4 L Sodium Potassium Chloride Carbon Dioxide BUN Creatinine Glucose POC Glucose 128 H Lactic Acid Calcium Ionized Calcium Phosphorus Magnesium AST Alkaline Phosphatase Total Protein Albumin Triglycerides Arterial Blood Glucose 132 H Arterial Blood Ionized Calcium 3.5 L Urine Creatinine 12/28/20 12/28/20 12/28/20 07:28 11:37 13:25 WBC RBC Hgb Hct MCHC RDW Plt Count Seg Neuts % (Manual) Lymphocytes % (Manual) Seg Neutrophils # Man Lymphocytes # (Manual) Monocytes # (Manual) APTT ABG pH POC ABG pCO2 POC ABG pO2 ABG pO2 ABG Hemoglobin ABG Oxyhemoglobin ABG Sodium ABG Potassium ABG Chloride ABG Glucose Carboxyhemoglobin Sodium 131 L 133 L Potassium 5.9 H 5.1 H Chloride 97.1 L Carbon Dioxide 15 L 21 L BUN 70 H 77 H Creatinine 4.0 H 4.4 H Glucose 118 H 140 H POC Glucose 135 H Lactic Acid Calcium 6.3 L 6.3 L Ionized Calcium Phosphorus 7.10 H Magnesium AST 144 H Alkaline Phosphatase Total Protein 4.8 L Albumin 1.3 L Triglycerides Arterial Blood Glucose Arterial Blood Ionized Calcium Urine Creatinine 12/28/20 12/28/20 12/29/20 16:38 23:28 03:08 WBC RBC Hgb Hct MCHC RDW Plt Count Seg Neuts % (Manual) Lymphocytes % (Manual) Seg Neutrophils # Man Lymphocytes # (Manual) Monocytes # (Manual) APTT ABG pH 7.301 L POC ABG pCO2 POC ABG pO2 151.1 H ABG pO2 ABG Hemoglobin 8.7 L ABG Oxyhemoglobin 98.2 H ABG Sodium 123.4 L ABG Potassium ABG Chloride 97.0 L ABG Glucose 144 H Carboxyhemoglobin Sodium Potassium Chloride Carbon Dioxide BUN Creatinine Glucose POC Glucose 140 H 134 H Lactic Acid Calcium Ionized Calcium Phosphorus Magnesium AST Alkaline Phosphatase Total Protein Albumin Triglycerides Arterial Blood Glucose 144 H Arterial Blood Ionized Calcium 3.4 L Urine Creatinine 12/29/20 12/29/20 12/29/20 05:20 05:20 06:01 WBC 21.0 H RBC 2.89 L Hgb 8.1 L Hct 25.5 L MCHC RDW 16.1 H Plt Count 124 L Seg Neuts % (Manual) Lymphocytes % (Manual) Seg Neutrophils # Man Lymphocytes # (Manual) Monocytes # (Manual) APTT ABG pH POC ABG pCO2 POC ABG pO2 ABG pO2 ABG Hemoglobin ABG Oxyhemoglobin ABG Sodium ABG Potassium ABG Chloride ABG Glucose Carboxyhemoglobin Sodium 131 L Potassium Chloride 93.4 L Carbon Dioxide BUN 79 H Creatinine 4.7 H Glucose 122 H POC Glucose 108 H Lactic Acid Calcium 5.5 L* Ionized Calcium Phosphorus 5.70 H Magnesium 1.60 L AST Alkaline Phosphatase Total Protein Albumin Triglycerides Arterial Blood Glucose Arterial Blood Ionized Calcium Urine Creatinine 12/29/20 12/29/20 12/29/20 10:04 11:27 17:31 WBC RBC Hgb Hct MCHC RDW Plt Count Seg Neuts % (Manual) Lymphocytes % (Manual) Seg Neutrophils # Man Lymphocytes # (Manual) Monocytes # (Manual) APTT ABG pH POC ABG pCO2 POC ABG pO2 ABG pO2 ABG Hemoglobin ABG Oxyhemoglobin ABG Sodium ABG Potassium ABG Chloride ABG Glucose Carboxyhemoglobin Sodium Potassium Chloride Carbon Dioxide BUN Creatinine Glucose POC Glucose 107 H 112 H 110 H Lactic Acid Calcium Ionized Calcium Phosphorus Magnesium AST Alkaline Phosphatase Total Protein Albumin Triglycerides Arterial Blood Glucose Arterial Blood Ionized Calcium Urine Creatinine 12/30/20 12/30/20 12/30/20 03:31 08:06 17:39 WBC RBC Hgb Hct MCHC RDW Plt Count Seg Neuts % (Manual) Lymphocytes % (Manual) Seg Neutrophils # Man Lymphocytes # (Manual) Monocytes # (Manual) APTT ABG pH 7.261 L POC ABG pCO2 POC ABG pO2 123.1 H ABG pO2 ABG Hemoglobin 8.7 L ABG Oxyhemoglobin ABG Sodium 123.2 L ABG Potassium ABG Chloride 96.0 L ABG Glucose 112 H Carboxyhemoglobin Sodium 128 L Potassium Chloride 90.7 L Carbon Dioxide 21 L BUN 86 H Creatinine 4.9 H Glucose 107 H POC Glucose 134 H Lactic Acid Calcium 6.2 L Ionized Calcium Phosphorus 5.30 H Magnesium 1.50 L AST Alkaline Phosphatase Total Protein Albumin Triglycerides Arterial Blood Glucose 112 H Arterial Blood Ionized Calcium 3.2 L Urine Creatinine 12/30/20 12/31/20 12/31/20 22:45 02:14 04:40 WBC RBC Hgb Hct MCHC RDW Plt Count Seg Neuts % (Manual) Lymphocytes % (Manual) Seg Neutrophils # Man Lymphocytes # (Manual) Monocytes # (Manual) APTT ABG pH 7.267 L POC ABG pCO2 POC ABG pO2 ABG pO2 ABG Hemoglobin 8.0 L ABG Oxyhemoglobin 93.7 L ABG Sodium ABG Potassium ABG Chloride 95.0 L ABG Glucose 108 H Carboxyhemoglobin 1.7 H Sodium 126 L Potassium Chloride 90.3 L Carbon Dioxide 20 L BUN 70 H Creatinine 4.3 H Glucose 209 H POC Glucose 109 H Lactic Acid Calcium 6.6 L Ionized Calcium Phosphorus 4.70 H Magnesium 1.60 L AST Alkaline Phosphatase Total Protein Albumin Triglycerides 157 H Arterial Blood Glucose 108 H Arterial Blood Ionized Calcium 3.7 L Urine Creatinine 12/31/20 12/31/20 01/01/21 16:23 23:21 04:00 WBC 18.0 H RBC 2.75 L Hgb 7.7 L Hct 23.9 L MCHC RDW 15.6 H Plt Count Seg Neuts % (Manual) 91.0 H Lymphocytes % (Manual) 6.0 L Seg Neutrophils # Man 16.4 H Lymphocytes # (Manual) 1.1 L Monocytes # (Manual) APTT ABG pH 7.264 L POC ABG pCO2 POC ABG pO2 74.8 L ABG pO2 ABG Hemoglobin 7.1 L ABG Oxyhemoglobin 92.1 L ABG Sodium 124.9 L ABG Potassium ABG Chloride 95.0 L ABG Glucose 111 H Carboxyhemoglobin 1.7 H Sodium Potassium Chloride Carbon Dioxide BUN Creatinine Glucose POC Glucose 125 H Lactic Acid Calcium Ionized Calcium Phosphorus Magnesium AST Alkaline Phosphatase Total Protein Albumin Triglycerides Arterial Blood Glucose 111 H Arterial Blood Ionized Calcium 4.0 L Urine Creatinine 01/01/21 01/01/21 01/01/21 05:50 13:41 15:55 WBC RBC Hgb Hct MCHC RDW Plt Count Seg Neuts % (Manual) Lymphocytes % (Manual) Seg Neutrophils # Man Lymphocytes # (Manual) Monocytes # (Manual) APTT ABG pH 7.148 L 7.207 L POC ABG pCO2 53.1 H POC ABG pO2 57.3 L 138.4 H ABG pO2 ABG Hemoglobin 9.0 L 8.3 L ABG Oxyhemoglobin 83.2 L ABG Sodium 126.2 L 124.5 L ABG Potassium ABG Chloride 95.0 L 95.0 L ABG Glucose 96 H 120 H Carboxyhemoglobin Sodium 131 L Potassium Chloride 93.3 L Carbon Dioxide 21 L BUN 67 H Creatinine 4.2 H Glucose POC Glucose Lactic Acid Calcium 7.1 L Ionized Calcium Phosphorus Magnesium AST 60 H Alkaline Phosphatase Total Protein 4.8 L Albumin 1.4 L Triglycerides Arterial Blood Glucose 96 H 120 H Arterial Blood Ionized Calcium 4.1 L 3.9 L Urine Creatinine Chest x-ray: report reviewed, image reviewed (bilateral infiltrates, worse)
[2021-01-01] MEDS ORDERED: TOTAL PARENTERAL NUTRITION 2,400 ML IV SCH (20:00)
[2021-01-02] MEDS: fentaNYL DRIP Premix 2,000 MCG/100 ML BAG IV SCH ×5 (01:17→21:45)
[2021-01-02] MEDS: VASOPRESSIN 20 UNIT in SODIUM CHLORIDE 0.9% 100 ML IV SCH (03:04)
[2021-01-02] MEDS: PIPERACIL/TAZOBACTA 4.5/NS 100 4.5 GM/100 ML VIAL IV SCH ×2 (06:00→17:39)
[2021-01-02] MEDS: INSULIN REGULAR, HUMAN 100 UNITS/1 ML SUB-Q SCH ×4 (06:00→18:00)
[2021-01-02] MEDS ORDERED: SODIUM CHLORIDE 0.9% 100 ML IV PRN ×2 (08:13→08:48)
[2021-01-02 08:27] LABS: Hemoglobin 7.1 gm/dl (11.8-15.2); Mean Corpuscular HGB Conc 32 % (32-34); Mean Corpuscular Volume 87 fl (84-94); Platelet Count 352 K/mm3 (140-440); Red Blood Count 2.53 M/mm3 (3.65-5.03); Red Cell Distribution Width 16.4 % (13.2-15.2)
[2021-01-02 09:19] LABS: Albumin 1.6 g/dL (3.9-5); Calcium 7.8 mg/dL (8.4-10.2)
[2021-01-02] MEDS: FAMOTIDINE 20 MG/2 ML INJ IV SCH (09:28)
[2021-01-02] MEDS: FLUCONAZOLE 200 MG 200 MG/100 ML BAG IV SCH (09:30)
--- NOTE | 2021-01-02 11:21 | Progress Note ---
Assessment and Plan 60 y/o male with abdominal catastrophe, s/p ex-lap with open abdomen, ventilated for pain control and support. 01/02/21: Now, will start to wean sedation. Continue to wean FiO2 but do not wean PEEP until FiO2 is down to about 40%. Spoke with renal who will dialyze patient today. electrolyte imbalances will be managed by them as well. Abx therapy per ID. Will continue to follow. Guarded prognosis. 12/30/20: No steroids given new anastomosis. Discussed with surgery. Continue sedation and pain control until abdomen is closed. Appears to have metabolic acidosis and some volume overload so feel he would benefit from HD today, will ask renal about this. Electrolyte imbalances should be managed by HD. Guarded to poor prognosis. 12/29/20: Continue all supportive measures. Maintain adequate sedation and pain control given open abdomen. HD per renal, catheter in place. Wean Pressors for MAPS >65. Prognosis still remains guarded to poor. 12/27/20: Agree with bicarb drip. Will go ahead and place vascath today. Will obtain consent and place, likely in groin. Back on pressors unfortunately but much lower doses. Got 3 doses of steroids on yesterday. May have helped. Will discuss with pharmacy and determine the risk benefit ration of continuing. Continue abx therapy as per ID. overall prognosis is very very guarded to poor. 12/26/20: Needs more hydration. Appreciate renal help but will bolus several liters today as I feel the patient is very volume deplete and with persistent fever we have insensible losses as well. Continue TPN. OR today. Wean pressors for MAPs greater than 65. Follow up triglyceride level. Some hypotension is likely related to amount of sedation required to maintain rass of -4. If third agent is needed, could use precedex, ativan etc..Guarded prognosis. 12/25/20: Down to 14 on Levo now. Fluid appears to have helped. Renal following so will defer further bolus types to them but would recommend more fluid. Continue sedation at current level. TPN for nutrition. Plans for return to OR on Saturday. Continue all supportive measures. 12/24/20: Adequate sedation to maintain RASS of -4. BP support as needed with pressors. Will give more fluid today. Renal function improving. Agree with D5W but Na will be corrected in TPN as well. TPN per nutrition. Supportive c are. 1. Adequate sedation to RASS of -4 2 Support BP with meds as needed 3. Aggressive hydration 4. Follow up surgery recs. cct 31 minutes. Subjective Date of service: 01/02/21 Principal diagnosis: SBO and necrosis of large part of small intestine Interval history: Abdomen closed yesterday. Off all pressors now, off diprovan. Very very edematous. Severe scrotal edema. Currently on Fent 3. Objective Vital Signs - 12hr 01/01/21 01/01/21 01/02/21 23:30 23:45 00:00 Temperature 98.8 F Pulse Rate 91 H 91 H 91 H Pulse Rate [ 91 H From Monitor] Blood Pressure 107/47 107/53 103/48 O2 Sat by Pulse 94 99 Oximetry 01/02/21 01/02/21 01/02/21 00:15 00:30 00:45 Temperature Pulse Rate 90 90 90 Pulse Rate [ From Monitor] Blood Pressure 98/50 98/45 104/47 O2 Sat by Pulse 97 96 Oximetry 01/02/21 01/02/21 01/02/21 01:00 01:15 01:30 Temperature Pulse Rate 91 H 91 H 92 H Pulse Rate [ From Monitor] Blood Pressure 108/51 109/48 103/48 O2 Sat by Pulse 96 Oximetry 01/02/21 01/02/21 01/02/21 01:45 02:00 02:15 Temperature Pulse Rate 91 H 92 H 92 H Pulse Rate [ From Monitor] Blood Pressure 106/50 101/50 102/48 O2 Sat by Pulse 95 99 96 Oximetry 01/02/21 01/02/21 01/02/21 02:30 02:45 03:00 Temperature Pulse Rate 93 H 93 H 93 H Pulse Rate [ From Monitor] Blood Pressure 103/47 98/48 108/49 O2 Sat by Pulse 93 94 98 Oximetry 01/02/21 01/02/21 01/02/21 03:15 03:30 03:45 Temperature Pulse Rate 91 H 92 H 91 H Pulse Rate [ From Monitor] Blood Pressure 96/51 99/51 103/45 O2 Sat by Pulse 97 95 Oximetry 01/02/21 01/02/21 01/02/21 04:00 04:15 04:30 Temperature 98.8 F Pulse Rate 92 H 93 H 91 H Pulse Rate [ 92 H From Monitor] Blood Pressure 95/51 104/49 106/55 O2 Sat by Pulse 100 95 96 Oximetry 01/02/21 01/02/21 01/02/21 04:35 04:45 05:00 Temperature Pulse Rate 90 91 H 90 Pulse Rate [ From Monitor] Blood Pressure 106/55 109/47 102/47 O2 Sat by Pulse 99 97 99 Oximetry 01/02/21 01/02/21 01/02/21 05:15 05:30 05:45 Temperature Pulse Rate 91 H 90 90 Pulse Rate [ From Monitor] Blood Pressure 104/46 89/44 91/44 O2 Sat by Pulse 96 96 Oximetry 01/02/21 01/02/21 01/02/21 06:00 06:15 06:30 Temperature Pulse Rate 88 87 89 Pulse Rate [ From Monitor] Blood Pressure 113/54 113/50 117/55 O2 Sat by Pulse 97 95 Oximetry 01/02/21 01/02/21 01/02/21 06:45 07:00 07:15 Temperature 98.2 F Pulse Rate 90 90 90 Pulse Rate [ From Monitor] Blood Pressure 109/51 100/47 104/47 O2 Sat by Pulse 98 96 97 Oximetry 01/02/21 01/02/21 01/02/21 07:30 07:45 08:00 Temperature Pulse Rate 90 92 H 91 H Pulse Rate [ From Monitor] Blood Pressure 102/46 119/56 106/47 O2 Sat by Pulse 97 98 98 Oximetry 01/02/21 01/02/21 01/02/21 08:15 08:30 08:45 Temperature Pulse Rate 94 H 92 H 91 H Pulse Rate [ From Monitor] Blood Pressure 124/51 118/49 106/47 O2 Sat by Pulse 97 96 Oximetry 01/02/21 09:00 Temperature Pulse Rate 91 H Pulse Rate [ From Monitor] Blood Pressure 103/46 O2 Sat by Pulse 100 Oximetry Constitutional: other (critically ill on ventilator) Eyes: non-icteric ENT: oropharynx moist Neck: supple Effort: normal Ascultation: Bilateral: other (coarse BS bilaterally) Cardiovascular: other (tachy, RR; no mrg) Gastrointestinal: other (abdomen open) Integumentary: normal Extremities: no cyanosis, no edema, pink and warm Neurologic: other (sedated) CBC and BMP: 01/02/21 08:00 01/02/21 08:00 ABG, PT/INR, D-dimer: ABG ABG pH 7.276 (7.320-7.450) L 01/02/21 03:47 POC ABG pCO2 39.4 mmHg (32.0-48.0) 01/02/21 03:47 ABG pCO2 51.0 mm Hg 12/20/20 21:30 POC ABG pO2 173.6 mmHg (83-108) H 01/02/21 03:47 ABG pO2 104.4 mm Hg (80.0-90.0) H 12/20/20 21:30 POC ABG HCO3 17.9 01/02/21 03:47 ABG O2 Saturation 99.2 (0-100) 01/02/21 03:47 Abnormal lab findings: Abnormal Labs 12/20/20 12/20/20 12/20/20 13:58 13:58 13:58 WBC 41.1 H* RBC 5.59 H Hgb 16.2 H Hct 47.7 H MCHC RDW 15.5 H Plt Count 486 H Seg Neuts % (Manual) Lymphocytes % (Manual) Seg Neutrophils # Man Lymphocytes # (Manual) Monocytes # (Manual) APTT ABG pH POC ABG pCO2 POC ABG pO2 ABG pO2 ABG Hemoglobin ABG Oxyhemoglobin ABG Sodium ABG Potassium ABG Chloride ABG Glucose Carboxyhemoglobin Sodium 130 L Potassium Chloride 80.7 L Carbon Dioxide BUN 37 H Creatinine Glucose 101 H POC Glucose Lactic Acid 3.20 H* Calcium Ionized Calcium Phosphorus Magnesium AST Alkaline Phosphatase 142 H Total Protein 6.2 L Albumin 2.2 L Triglycerides Arterial Blood Glucose Arterial Blood Ionized Calcium Urine Creatinine 12/20/20 12/20/20 12/20/20 13:58 20:35 21:30 WBC RBC Hgb Hct MCHC RDW Plt Count Seg Neuts % (Manual) Lymphocytes % (Manual) Seg Neutrophils # Man Lymphocytes # (Manual) Monocytes # (Manual) APTT 49.4 H ABG pH 7.313 L POC ABG pCO2 POC ABG pO2 ABG pO2 104.4 H ABG Hemoglobin ABG Oxyhemoglobin ABG Sodium ABG Potassium ABG Chloride ABG Glucose Carboxyhemoglobin Sodium Potassium Chloride Carbon Dioxide BUN Creatinine Glucose POC Glucose 122 H Lactic Acid Calcium Ionized Calcium Phosphorus Magnesium AST Alkaline Phosphatase Total Protein Albumin Triglycerides Arterial Blood Glucose Arterial Blood Ionized Calcium Urine Creatinine 12/21/20 12/21/20 12/21/20 03:06 08:14 08:14 WBC 23.9 H RBC Hgb Hct MCHC RDW 15.7 H Plt Count Seg Neuts % (Manual) 91.0 H Lymphocytes % (Manual) 3.0 L Seg Neutrophils # Man 21.7 H Lymphocytes # (Manual) 0.7 L Monocytes # (Manual) 1.4 H APTT ABG pH 7.464 H POC ABG pCO2 POC ABG pO2 202.9 H ABG pO2 ABG Hemoglobin ABG Oxyhemoglobin ABG Sodium 133.7 L ABG Potassium ABG Chloride ABG Glucose 122 H Carboxyhemoglobin Sodium Potassium Chloride Carbon Dioxide BUN 46 H Creatinine Glucose 103 H POC Glucose Lactic Acid Calcium 6.6 L D Ionized Calcium Phosphorus Magnesium AST Alkaline Phosphatase Total Protein 5.4 L Albumin 2.3 L Triglycerides Arterial Blood Glucose 122 H Arterial Blood Ionized Calcium 3.5 L Urine Creatinine 12/21/20 12/21/20 12/22/20 17:18 21:28 04:45 WBC 22.9 H RBC Hgb Hct MCHC RDW 15.7 H Plt Count Seg Neuts % (Manual) Lymphocytes % (Manual) Seg Neutrophils # Man Lymphocytes # (Manual) Monocytes # (Manual) APTT ABG pH POC ABG pCO2 POC ABG pO2 ABG pO2 ABG Hemoglobin ABG Oxyhemoglobin ABG Sodium ABG Potassium ABG Chloride ABG Glucose Carboxyhemoglobin Sodium Potassium Chloride Carbon Dioxide BUN Creatinine Glucose POC Glucose 108 H Lactic Acid Calcium Ionized Calcium 4.1 L Phosphorus Magnesium AST Alkaline Phosphatase Total Protein Albumin Triglycerides Arterial Blood Glucose Arterial Blood Ionized Calcium Urine Creatinine 12/22/20 12/22/20 12/22/20 04:45 05:00 11:38 WBC RBC Hgb Hct MCHC RDW Plt Count Seg Neuts % (Manual) Lymphocytes % (Manual) Seg Neutrophils # Man Lymphocytes # (Manual) Monocytes # (Manual) APTT ABG pH 7.462 H POC ABG pCO2 POC ABG pO2 ABG pO2 ABG Hemoglobin ABG Oxyhemoglobin ABG Sodium ABG Potassium ABG Chloride ABG Glucose 118 H Carboxyhemoglobin Sodium 146 H Potassium Chloride Carbon Dioxide BUN 45 H Creatinine Glucose 116 H POC Glucose 115 H Lactic Acid Calcium 6.9 L Ionized Calcium Phosphorus Magnesium AST Alkaline Phosphatase Total Protein Albumin Triglycerides Arterial Blood Glucose 118 H Arterial Blood Ionized Calcium 3.8 L Urine Creatinine 12/22/20 12/23/20 12/23/20 23:26 04:43 04:45 WBC 22.2 H RBC Hgb Hct MCHC RDW 16.1 H Plt Count Seg Neuts % (Manual) Lymphocytes % (Manual) Seg Neutrophils # Man Lymphocytes # (Manual) Monocytes # (Manual) APTT ABG pH POC ABG pCO2 POC ABG pO2 ABG pO2 ABG Hemoglobin ABG Oxyhemoglobin ABG Sodium 147.4 H ABG Potassium ABG Chloride 112.0 H ABG Glucose 130 H Carboxyhemoglobin 0.4 L Sodium Potassium Chloride Carbon Dioxide BUN Creatinine Glucose POC Glucose 110 H Lactic Acid Calcium Ionized Calcium Phosphorus Magnesium AST Alkaline Phosphatase Total Protein Albumin Triglycerides Arterial Blood Glucose 130 H Arterial Blood Ionized Calcium 3.8 L Urine Creatinine 12/23/20 12/23/20 12/23/20 04:45 05:17 11:22 WBC RBC Hgb Hct MCHC RDW Plt Count Seg Neuts % (Manual) Lymphocytes % (Manual) Seg Neutrophils # Man Lymphocytes # (Manual) Monocytes # (Manual) APTT ABG pH POC ABG pCO2 POC ABG pO2 ABG pO2 ABG Hemoglobin ABG Oxyhemoglobin ABG Sodium ABG Potassium ABG Chloride ABG Glucose Carboxyhemoglobin Sodium 154 H D Potassium Chloride 110.9 H Carbon Dioxide BUN 54 H Creatinine 1.8 H Glucose 115 H POC Glucose 116 H 130 H Lactic Acid Calcium 7.0 L Ionized Calcium Phosphorus Magnesium AST Alkaline Phosphatase Total Protein Albumin Triglycerides Arterial Blood Glucose Arterial Blood Ionized Calcium Urine Creatinine 12/23/20 12/23/20 12/23/20 12:15 12:15 23:15 WBC RBC Hgb Hct MCHC RDW Plt Count Seg Neuts % (Manual) Lymphocytes % (Manual) Seg Neutrophils # Man Lymphocytes # (Manual) Monocytes # (Manual) APTT ABG pH POC ABG pCO2 POC ABG pO2 ABG pO2 ABG Hemoglobin ABG Oxyhemoglobin ABG Sodium ABG Potassium ABG Chloride ABG Glucose Carboxyhemoglobin Sodium 154 H Potassium Chloride Carbon Dioxide BUN Creatinine 1.5 H Glucose POC Glucose 132 H Lactic Acid Calcium Ionized Calcium Phosphorus Magnesium AST Alkaline Phosphatase Total Protein Albumin Triglycerides Arterial Blood Glucose Arterial Blood Ionized Calcium Urine Creatinine 78.1 H 12/24/20 12/24/20 12/24/20 04:19 04:30 04:30 WBC 18.3 H RBC Hgb Hct MCHC RDW 16.5 H Plt Count Seg Neuts % (Manual) Lymphocytes % (Manual) Seg Neutrophils # Man Lymphocytes # (Manual) Monocytes # (Manual) APTT ABG pH POC ABG pCO2 POC ABG pO2 ABG pO2 ABG Hemoglobin ABG Oxyhemoglobin ABG Sodium 149.7 H ABG Potassium ABG Chloride 116.0 H ABG Glucose 180 H Carboxyhemoglobin Sodium 155 H Potassium Chloride 116.1 H Carbon Dioxide BUN 52 H Creatinine 1.5 H Glucose 175 H POC Glucose Lactic Acid Calcium 6.8 L Ionized Calcium Phosphorus Magnesium 3.00 H AST Alkaline Phosphatase Total Protein 5.7 L Albumin 1.8 L Triglycerides Arterial Blood Glucose 180 H Arterial Blood Ionized Calcium 3.7 L Urine Creatinine 12/24/20 12/24/20 12/24/20 05:24 11:21 18:05 WBC RBC Hgb Hct MCHC RDW Plt Count Seg Neuts % (Manual) Lymphocytes % (Manual) Seg Neutrophils # Man Lymphocytes # (Manual) Monocytes # (Manual) APTT ABG pH POC ABG pCO2 POC ABG pO2 ABG pO2 ABG Hemoglobin ABG Oxyhemoglobin ABG Sodium ABG Potassium ABG Chloride ABG Glucose Carboxyhemoglobin Sodium Potassium Chloride Carbon Dioxide BUN Creatinine Glucose POC Glucose 153 H 154 H 133 H Lactic Acid Calcium Ionized Calcium Phosphorus Magnesium AST Alkaline Phosphatase Total Protein Albumin Triglycerides Arterial Blood Glucose Arterial Blood Ionized Calcium Urine Creatinine 12/25/20 12/25/20 12/25/20 04:00 07:00 07:00 WBC 17.6 H RBC Hgb Hct MCHC 31 L RDW 16.0 H Plt Count Seg Neuts % (Manual) Lymphocytes % (Manual) Seg Neutrophils # Man Lymphocytes # (Manual) Monocytes # (Manual) APTT ABG pH POC ABG pCO2 POC ABG pO2 ABG pO2 ABG Hemoglobin ABG Oxyhemoglobin ABG Sodium 152.5 H ABG Potassium ABG Chloride 119.0 H ABG Glucose 136 H Carboxyhemoglobin Sodium Potassium Chloride Carbon Dioxide BUN Creatinine Glucose POC Glucose Lactic Acid Calcium Ionized Calcium Phosphorus Magnesium 2.70 H AST Alkaline Phosphatase Total Protein Albumin Triglycerides Arterial Blood Glucose 136 H Arterial Blood Ionized Calcium 3.7 L Urine Creatinine 12/25/20 12/25/20 12/25/20 07:00 11:24 16:32 WBC RBC Hgb Hct MCHC RDW Plt Count Seg Neuts % (Manual) Lymphocytes % (Manual) Seg Neutrophils # Man Lymphocytes # (Manual) Monocytes # (Manual) APTT ABG pH POC ABG pCO2 POC ABG pO2 ABG pO2 ABG Hemoglobin ABG Oxyhemoglobin ABG Sodium ABG Potassium ABG Chloride ABG Glucose Carboxyhemoglobin Sodium 156 H Potassium Chloride 118.0 H Carbon Dioxide BUN 44 H Creatinine 1.7 H Glucose 126 H POC Glucose 110 H 126 H Lactic Acid Calcium 6.9 L Ionized Calcium Phosphorus Magnesium AST Alkaline Phosphatase Total Protein Albumin Triglycerides Arterial Blood Glucose Arterial Blood Ionized Calcium Urine Creatinine 12/25/20 12/25/20 12/26/20 18:18 23:23 03:30 WBC RBC Hgb Hct MCHC RDW Plt Count Seg Neuts % (Manual) Lymphocytes % (Manual) Seg Neutrophils # Man Lymphocytes # (Manual) Monocytes # (Manual) APTT ABG pH POC ABG pCO2 POC ABG pO2 ABG pO2 ABG Hemoglobin 11.8 L ABG Oxyhemoglobin ABG Sodium ABG Potassium 4.7 H ABG Chloride 114.0 H ABG Glucose 132 H Carboxyhemoglobin Sodium 151 H Potassium Chloride 114.3 H Carbon Dioxide BUN 51 H Creatinine 2.6 H D Glucose 122 H POC Glucose 115 H Lactic Acid Calcium 6.4 L Ionized Calcium Phosphorus Magnesium AST Alkaline Phosphatase Total Protein Albumin Triglycerides Arterial Blood Glucose 132 H Arterial Blood Ionized Calcium 3.6 L Urine Creatinine 12/26/20 12/26/20 12/26/20 04:55 06:01 06:01 WBC 21.6 H RBC Hgb Hct MCHC 31 L RDW 16.5 H Plt Count 136 L Seg Neuts % (Manual) Lymphocytes % (Manual) Seg Neutrophils # Man Lymphocytes # (Manual) Monocytes # (Manual) APTT ABG pH POC ABG pCO2 POC ABG pO2 ABG pO2 ABG Hemoglobin ABG Oxyhemoglobin ABG Sodium ABG Potassium ABG Chloride ABG Glucose Carboxyhemoglobin Sodium 173 H* D Potassium 6.1 H* D Chloride 137.0 H Carbon Dioxide BUN 73 H Creatinine 3.8 H Glucose 125 H POC Glucose 112 H Lactic Acid Calcium 6.2 L Ionized Calcium Phosphorus 5.70 H D Magnesium 2.90 H AST Alkaline Phosphatase Total Protein Albumin Triglycerides Arterial Blood Glucose Arterial Blood Ionized Calcium Urine Creatinine 12/26/20 12/26/20 12/26/20 08:33 11:19 22:00 WBC RBC Hgb Hct MCHC RDW Plt Count Seg Neuts % (Manual) Lymphocytes % (Manual) Seg Neutrophils # Man Lymphocytes # (Manual) Monocytes # (Manual) APTT ABG pH POC ABG pCO2 POC ABG pO2 ABG pO2 ABG Hemoglobin ABG Oxyhemoglobin ABG Sodium ABG Potassium ABG Chloride ABG Glucose Carboxyhemoglobin Sodium 147 H D Potassium 5.8 H D Chloride 108.8 H Carbon Dioxide 21 L BUN 68 H 68 H Creatinine 3.8 H 4.1 H Glucose 144 H 154 H POC Glucose 144 H Lactic Acid Calcium 6.5 L 5.8 L* Ionized Calcium Phosphorus Magnesium AST 215 H Alkaline Phosphatase Total Protein 4.7 L Albumin 1.5 L Triglycerides Arterial Blood Glucose Arterial Blood Ionized Calcium Urine Creatinine 12/26/20 12/26/20 12/27/20 23:13 Unknown 00:25 WBC RBC Hgb 11.1 L Hct MCHC RDW Plt Count Seg Neuts % (Manual) Lymphocytes % (Manual) Seg Neutrophils # Man Lymphocytes # (Manual) Monocytes # (Manual) APTT ABG pH POC ABG pCO2 POC ABG pO2 ABG pO2 ABG Hemoglobin ABG Oxyhemoglobin ABG Sodium ABG Potassium ABG Chloride ABG Glucose Carboxyhemoglobin Sodium Potassium Chloride Carbon Dioxide BUN Creatinine Glucose POC Glucose 163 H Lactic Acid Calcium Ionized Calcium Phosphorus 5.60 H Magnesium AST Alkaline Phosphatase Total Protein Albumin Triglycerides Arterial Blood Glucose Arterial Blood Ionized Calcium Urine Creatinine 12/27/20 12/27/20 12/27/20 02:57 04:15 04:15 WBC 28.5 H RBC Hgb 11.2 L Hct MCHC 31 L RDW 16.5 H Plt Count 130 L Seg Neuts % (Manual) Lymphocytes % (Manual) Seg Neutrophils # Man Lymphocytes # (Manual) Monocytes # (Manual) APTT ABG pH 7.238 L POC ABG pCO2 POC ABG pO2 139.1 H ABG pO2 ABG Hemoglobin 11.2 L ABG Oxyhemoglobin ABG Sodium 133.8 L ABG Potassium 5.2 H ABG Chloride ABG Glucose 182 H Carboxyhemoglobin Sodium 136 L Potassium 6.0 H Chloride Carbon Dioxide 18 L BUN 68 H Creatinine 4.1 H Glucose 166 H POC Glucose Lactic Acid Calcium 6.2 L Ionized Calcium Phosphorus 7.30 H D Magnesium AST Alkaline Phosphatase Total Protein Albumin Triglycerides 164 H Arterial Blood Glucose 182 H Arterial Blood Ionized Calcium 3.4 L Urine Creatinine 0612/27/20 12/27/20 04:50 10:51 11:17 WBC RBC Hgb Hct MCHC RDW Plt Count Seg Neuts % (Manual) Lymphocytes % (Manual) Seg Neutrophils # Man Lymphocytes # (Manual) Monocytes # (Manual) APTT ABG pH POC ABG pCO2 POC ABG pO2 ABG pO2 ABG Hemoglobin ABG Oxyhemoglobin ABG Sodium ABG Potassium ABG Chloride ABG Glucose Carboxyhemoglobin Sodium Potassium Chloride Carbon Dioxide BUN Creatinine Glucose POC Glucose 140 H 113 H 154 H Lactic Acid Calcium Ionized Calcium Phosphorus Magnesium AST Alkaline Phosphatase Total Protein Albumin Triglycerides Arterial Blood Glucose Arterial Blood Ionized Calcium Urine Creatinine 12/27/20 12/27/20 12/27/20 12:40 14:40 23:17 WBC RBC Hgb Hct MCHC RDW Plt Count Seg Neuts % (Manual) Lymphocytes % (Manual) Seg Neutrophils # Man Lymphocytes # (Manual) Monocytes # (Manual) APTT ABG pH POC ABG pCO2 POC ABG pO2 ABG pO2 ABG Hemoglobin ABG Oxyhemoglobin ABG Sodium ABG Potassium ABG Chloride ABG Glucose Carboxyhemoglobin Sodium 135 L Potassium Chloride Carbon Dioxide 21 L BUN 62 H Creatinine 3.8 H Glucose 132 H POC Glucose 130 H Lactic Acid Calcium 5.6 L* Ionized Calcium 3.3 L Phosphorus Magnesium AST Alkaline Phosphatase Total Protein Albumin Triglycerides Arterial Blood Glucose Arterial Blood Ionized Calcium Urine Creatinine 12/28/20 12/28/20 12/28/20 05:36 07:08 07:28 WBC 27.2 H RBC 3.50 L Hgb 9.6 L Hct 30.8 L MCHC 31 L RDW 16.1 H Plt Count 111 L Seg Neuts % (Manual) 95.0 H Lymphocytes % (Manual) Seg Neutrophils # Man 25.8 H Lymphocytes # (Manual) 0.0 L Monocytes # (Manual) 1.1 H APTT ABG pH 7.200 L POC ABG pCO2 POC ABG pO2 67.2 L ABG pO2 ABG Hemoglobin 10.3 L ABG Oxyhemoglobin 89.6 L ABG Sodium 127.8 L ABG Potassium 5.1 H ABG Chloride ABG Glucose 132 H Carboxyhemoglobin 0.4 L Sodium Potassium Chloride Carbon Dioxide BUN Creatinine Glucose POC Glucose 128 H Lactic Acid Calcium Ionized Calcium Phosphorus Magnesium AST Alkaline Phosphatase Total Protein Albumin Triglycerides Arterial Blood Glucose 132 H Arterial Blood Ionized Calcium 3.5 L Urine Creatinine 12/28/20 12/28/20 12/28/20 07:28 11:37 13:25 WBC RBC Hgb Hct MCHC RDW Plt Count Seg Neuts % (Manual) Lymphocytes % (Manual) Seg Neutrophils # Man Lymphocytes # (Manual) Monocytes # (Manual) APTT ABG pH POC ABG pCO2 POC ABG pO2 ABG pO2 ABG Hemoglobin ABG Oxyhemoglobin ABG Sodium ABG Potassium ABG Chloride ABG Glucose Carboxyhemoglobin Sodium 131 L 133 L Potassium 5.9 H 5.1 H Chloride 97.1 L Carbon Dioxide 15 L 21 L BUN 70 H 77 H Creatinine 4.0 H 4.4 H Glucose 118 H 140 H POC Glucose 135 H Lactic Acid Calcium 6.3 L 6.3 L Ionized Calcium Phosphorus 7.10 H Magnesium AST 144 H Alkaline Phosphatase Total Protein 4.8 L Albumin 1.3 L Triglycerides Arterial Blood Glucose Arterial Blood Ionized Calcium Urine Creatinine 12/28/20 12/28/20 12/29/20 16:38 23:28 03:08 WBC RBC Hgb Hct MCHC RDW Plt Count Seg Neuts % (Manual) Lymphocytes % (Manual) Seg Neutrophils # Man Lymphocytes # (Manual) Monocytes # (Manual) APTT ABG pH 7.301 L POC ABG pCO2 POC ABG pO2 151.1 H ABG pO2 ABG Hemoglobin 8.7 L ABG Oxyhemoglobin 98.2 H ABG Sodium 123.4 L ABG Potassium ABG Chloride 97.0 L ABG Glucose 144 H Carboxyhemoglobin Sodium Potassium Chloride Carbon Dioxide BUN Creatinine Glucose POC Glucose 140 H 134 H Lactic Acid Calcium Ionized Calcium Phosphorus Magnesium AST Alkaline Phosphatase Total Protein Albumin Triglycerides Arterial Blood Glucose 144 H Arterial Blood Ionized Calcium 3.4 L Urine Creatinine 12/29/20 12/29/20 12/29/20 05:20 05:20 06:01 WBC 21.0 H RBC 2.89 L Hgb 8.1 L Hct 25.5 L MCHC RDW 16.1 H Plt Count 124 L Seg Neuts % (Manual) Lymphocytes % (Manual) Seg Neutrophils # Man Lymphocytes # (Manual) Monocytes # (Manual) APTT ABG pH POC ABG pCO2 POC ABG pO2 ABG pO2 ABG Hemoglobin ABG Oxyhemoglobin ABG Sodium ABG Potassium ABG Chloride ABG Glucose Carboxyhemoglobin Sodium 131 L Potassium Chloride 93.4 L Carbon Dioxide BUN 79 H Creatinine 4.7 H Glucose 122 H POC Glucose 108 H Lactic Acid Calcium 5.5 L* Ionized Calcium Phosphorus 5.70 H Magnesium 1.60 L AST Alkaline Phosphatase Total Protein Albumin Triglycerides Arterial Blood Glucose Arterial Blood Ionized Calcium Urine Creatinine 12/29/20 12/29/20 12/29/20 10:04 11:27 17:31 WBC RBC Hgb Hct MCHC RDW Plt Count Seg Neuts % (Manual) Lymphocytes % (Manual) Seg Neutrophils # Man Lymphocytes # (Manual) Monocytes # (Manual) APTT ABG pH POC ABG pCO2 POC ABG pO2 ABG pO2 ABG Hemoglobin ABG Oxyhemoglobin ABG Sodium ABG Potassium ABG Chloride ABG Glucose Carboxyhemoglobin Sodium Potassium Chloride Carbon Dioxide BUN Creatinine Glucose POC Glucose 107 H 112 H 110 H Lactic Acid Calcium Ionized Calcium Phosphorus Magnesium AST Alkaline Phosphatase Total Protein Albumin Triglycerides Arterial Blood Glucose Arterial Blood Ionized Calcium Urine Creatinine 12/30/20 12/30/20 12/30/20 03:31 08:06 17:39 WBC RBC Hgb Hct MCHC RDW Plt Count Seg Neuts % (Manual) Lymphocytes % (Manual) Seg Neutrophils # Man Lymphocytes # (Manual) Monocytes # (Manual) APTT ABG pH 7.261 L POC ABG pCO2 POC ABG pO2 123.1 H ABG pO2 ABG Hemoglobin 8.7 L ABG Oxyhemoglobin ABG Sodium 123.2 L ABG Potassium ABG Chloride 96.0 L ABG Glucose 112 H Carboxyhemoglobin Sodium 128 L Potassium Chloride 90.7 L Carbon Dioxide 21 L BUN 86 H Creatinine 4.9 H Glucose 107 H POC Glucose 134 H Lactic Acid Calcium 6.2 L Ionized Calcium Phosphorus 5.30 H Magnesium 1.50 L AST Alkaline Phosphatase Total Protein Albumin Triglycerides Arterial Blood Glucose 112 H Arterial Blood Ionized Calcium 3.2 L Urine Creatinine 12/30/20 12/31/20 12/31/20 22:45 02:14 04:40 WBC RBC Hgb Hct MCHC RDW Plt Count Seg Neuts % (Manual) Lymphocytes % (Manual) Seg Neutrophils # Man Lymphocytes # (Manual) Monocytes # (Manual) APTT ABG pH 7.267 L POC ABG pCO2 POC ABG pO2 ABG pO2 ABG Hemoglobin 8.0 L ABG Oxyhemoglobin 93.7 L ABG Sodium ABG Potassium ABG Chloride 95.0 L ABG Glucose 108 H Carboxyhemoglobin 1.7 H Sodium 126 L Potassium Chloride 90.3 L Carbon Dioxide 20 L BUN 70 H Creatinine 4.3 H Glucose 209 H POC Glucose 109 H Lactic Acid Calcium 6.6 L Ionized Calcium Phosphorus 4.70 H Magnesium 1.60 L AST Alkaline Phosphatase Total Protein Albumin Triglycerides 157 H Arterial Blood Glucose 108 H Arterial Blood Ionized Calcium 3.7 L Urine Creatinine 12/31/20 12/31/20 01/01/21 16:23 23:21 04:00 WBC 18.0 H RBC 2.75 L Hgb 7.7 L Hct 23.9 L MCHC RDW 15.6 H Plt Count Seg Neuts % (Manual) 91.0 H Lymphocytes % (Manual) 6.0 L Seg Neutrophils # Man 16.4 H Lymphocytes # (Manual) 1.1 L Monocytes # (Manual) APTT ABG pH 7.264 L POC ABG pCO2 POC ABG pO2 74.8 L ABG pO2 ABG Hemoglobin 7.1 L ABG Oxyhemoglobin 92.1 L ABG Sodium 124.9 L ABG Potassium ABG Chloride 95.0 L ABG Glucose 111 H Carboxyhemoglobin 1.7 H Sodium Potassium Chloride Carbon Dioxide BUN Creatinine Glucose POC Glucose 125 H Lactic Acid Calcium Ionized Calcium Phosphorus Magnesium AST Alkaline Phosphatase Total Protein Albumin Triglycerides Arterial Blood Glucose 111 H Arterial Blood Ionized Calcium 4.0 L Urine Creatinine 01/01/21 01/01/21 01/01/21 05:50 13:41 15:55 WBC RBC Hgb Hct MCHC RDW Plt Count Seg Neuts % (Manual) Lymphocytes % (Manual) Seg Neutrophils # Man Lymphocytes # (Manual) Monocytes # (Manual) APTT ABG pH 7.148 L 7.207 L POC ABG pCO2 53.1 H POC ABG pO2 57.3 L 138.4 H ABG pO2 ABG Hemoglobin 9.0 L 8.3 L ABG Oxyhemoglobin 83.2 L ABG Sodium 126.2 L 124.5 L ABG Potassium ABG Chloride 95.0 L 95.0 L ABG Glucose 96 H 120 H Carboxyhemoglobin Sodium 131 L Potassium Chloride 93.3 L Carbon Dioxide 21 L BUN 67 H Creatinine 4.2 H Glucose POC Glucose Lactic Acid Calcium 7.1 L Ionized Calcium Phosphorus Magnesium AST 60 H Alkaline Phosphatase Total Protein 4.8 L Albumin 1.4 L Triglycerides Arterial Blood Glucose 96 H 120 H Arterial Blood Ionized Calcium 4.1 L 3.9 L Urine Creatinine 01/01/21 01/01/21 01/02/21 17:09 23:24 03:47 WBC RBC Hgb Hct MCHC RDW Plt Count Seg Neuts % (Manual) Lymphocytes % (Manual) Seg Neutrophils # Man Lymphocytes # (Manual) Monocytes # (Manual) APTT ABG pH 7.276 L POC ABG pCO2 POC ABG pO2 173.6 H ABG pO2 ABG Hemoglobin 7 L ABG Oxyhemoglobin ABG Sodium 122.4 L ABG Potassium ABG Chloride 94.0 L ABG Glucose 118 H Carboxyhemoglobin Sodium Potassium Chloride Carbon Dioxide BUN Creatinine Glucose POC Glucose 124 H 119 H Lactic Acid Calcium Ionized Calcium Phosphorus Magnesium AST Alkaline Phosphatase Total Protein Albumin Triglycerides Arterial Blood Glucose 118 H Arterial Blood Ionized Calcium 4.0 L Urine Creatinine 01/02/21 01/02/21 01/02/21 05:33 08:00 08:00 WBC 19.7 H RBC 2.53 L Hgb 7.1 L Hct 22.0 L MCHC RDW 16.4 H Plt Count Seg Neuts % (Manual) Lymphocytes % (Manual) Seg Neutrophils # Man Lymphocytes # (Manual) Monocytes # (Manual) APTT ABG pH POC ABG pCO2 POC ABG pO2 ABG pO2 ABG Hemoglobin ABG Oxyhemoglobin ABG Sodium ABG Potassium ABG Chloride ABG Glucose Carboxyhemoglobin Sodium 127 L Potassium Chloride 89.3 L Carbon Dioxide 19 L BUN 82 H Creatinine 5.0 H Glucose 103 H POC Glucose 107 H Lactic Acid Calcium 7.8 L Ionized Calcium Phosphorus 6.40 H Magnesium AST 47 H Alkaline Phosphatase Total Protein 5.0 L Albumin 1.6 L Triglycerides Arterial Blood Glucose Arterial Blood Ionized Calcium Urine Creatinine
--- NOTE | 2021-01-02 11:41 | Progress Note ---
Assessment and Plan Assessment and plan: This is a 60-year-old male with obesity, hypertension, nicotine dependence, PVD s/p stent placement on dual antiplatelet therapy, hyperlipidemia, OA, GERD, ventral hernia and small bowel obstruction who was admitted with small bowel obstruction and peritonitis Septic Shock, POA (presented with leukocytosis, tachycardia, tachypnea,febrile and evidence of peritonitis) COVID-19 PUI, ruled out Small bowel obstruction with peritonitis Ventral hernia Leukocytosis Anemia Hyponatremia Hypochloremia Metabolic acidosis Hyperphosphatemia Acute Kidney Injury Obesity Hypertension Nicotine dependence CAD s/p stent placement Hyperlipidemia Osteoarthritis GERD -[facility], surgery, infectious disease, nephrology consulted, appreciate recommendations -12/20 CT abdomen/pelvis showed high-grade small bowel obstruction related to severe complex ventral abdominal wall hernias, progressed in appearance from prior exam from 09/12/2020 without evidence of pneumonitis or pneumoperitoneum, patchy bibasilar airspace disease concern for atypical infectious process/pneumonitis -12/20 s/p ex lap, extensive lysis of adhesions, small bowel resection (removal of 70 cm necrotic small bowel segment), peritoneal lavage and ABThera abdominal wound VAC placement -12/23 s/p abdominal exploration, small bowel resection, peritoneal lavage, ABThera wound VAC placement -12/26 s/p ex lap, small bowel resection, peritoneal lavage, ABThera wound VAC placement -12/29 s/p ex lap, small bowel resection, small bowel anastomosis and ABThera wou nd VAC placement -01/01 s/p myocutaneous flap creation, abdominal wall component separation and placement of phasix mesh with surgery yesterday where his abdomen was closed and 2 LAURA drains were placed on either side of his midline between fascia and subcu tissue. -12/30 initiated on HD by nephro -IV abx per ID: Zosyn, fluconazole to continue for 5 days until final surgery -NGT to LIWS -NPO for now, TPN -SSI, Accucheck q6 -wean Vasopressor support as tolerated -HD per nephro -12/23 Fractional excretion of sodium calculated at 0.16 indicating prerenal state -COVID-19 PCR negative -On mechanical ventilation, wean as tolerated, VAP bundle -Sedated with propofol and analgesia with fentanyl drip -Trend CBC, BMP, Mg, Phos GI/DVT prophylaxis: PPI, SCDs to bilateral lower extremities while in bed, Disposition: ICU The high probability of a clinically significant, sudden or life threatening deterioration of the [multi] system(s) required my full and direct attention, intervention and personal management. The aggregate critical care time was [35] minutes. This time is in addition to time spent performing reported procedures but includes the following: [x] Data Review and interpretation [x] Patient assessment and monitoring of vital signs [x] Documentation [x] Medication orders and management History Interval history: This is a 60-year-old male with obesity, hypertension, nicotine dependence, PVD s/p stent placement on dual antiplatelet therapy, hyperlipidemia, OA, GERD, ventral hernia with SBO who presents to the emergency department on 12/20 with severe, diffuse, worsened with movement, slightly relieved with rest abdominal pain rated at 10/10 with decreased oral intake, nausea and multiple episodes of vomiting. Patient underwent a CT of his abdomen/pelvis and was found to have evidence of small bowel obstruction as well as clinical findings consistent with acute peritonitis. Patient was admitted to the hospital service with acute peritonitis and incarcerated ventral hernia with consults to [facility] and surgery. 12/21: Patient is status post ex lap, extensive lysis of adhesions, small bowel resection, peritoneal lavage and ABThera abdominal wound VAC placement by Dr. Tena and Dr. Brumfield on 12/20 with removal of a 70 cm segment of necrotic small bowel. Patient was intubated and sedated on propofol 4 at the time of my examination on Assist-control, rate of 24, PEEP of 6, tidal volume of 550 and FiO2 35%. Patient needed to be deeply sedated and there was a became hypotensive. Patient was started on patient for support with Levophed and received bolus of IVF. 12/22: Patient was febrile to 103 and vancomycin and Diflucan were added by [facility] and infectious disease was consulted and they increased Zosyn and stop vancomycin. Patient was given additional 1 L bolus today for CVP goal of 10-12. At the time of examination patient was on Levophed, propofol and fentanyl CMV tidal volume 500, rate of 24, PEEP of 6 and FiO2 65%. Plan for OR tomorrow 12/23: Patient Cr/BUN noted to be increased and nephrology was consulted. ID decreased the zosyn dose d/r renal function. Urine studies ordered. [place] placed today. LR boluses per [facility], TPN to be started. Fractional excretion of sodium calculated at 0.16 indicating prerenal state 12/24: Patient is status post abdominal exploration, small bowel resection of 4 to 5 cm segment of dusky small bowel, peritoneal lavage and ABThera wound VAC placement on 12/23 with surgery, leukocytosis and renal function is improving, worsening hypernatremia and hyperchloremia. Patient will be started on TPN today. We will place on SSI/Accu-Cheks every every 6 hours. Patient noted to be nearly maxed on Levophed and vasopressin was ordered. Remains sedated and on MV 12/25: Leukocytosis continues to improve, given Ca Gluconate today, Hypernatremia, Cr and hyperchorlemia slightly worsened today. Patient is sedated with propofol and fentanyl on CMV TV 500, Rate 24, Peep 6, FiO2 50%. He remains on levophed. Possible OR Saturday. 12/26 Patient presented with small bowel obstruction, is status post ex lap, extensive lysis of adhesions, small bowel resection, peritoneal lavage and A BThera abdominal wound VAC placement by Dr. Tena and Dr. Brumfield on 12/20 with removal of a 70 cm segment of necrotic small bowel. Was taken back to OR on 12/23 s/p Abdominal exploration, Small bowel resection, Peritoneal lavage, ABThera wound VAC placement. he is still having fever. Poss going to OR again today. Sepsis managed by ID. He is on Diflucan, Zosyn. He is on Levophed. 6/ s/p ex lap, extensive lysis of adhesions, small bowel resection (removal of 70 cm necrotic small bowel segment), peritoneal lavage and ABThera abdominal wound VAC placement. Still having fever Still on vent 12/28: Patient is orally intubated with AC mode ventilation rate 24, tidal volume 500, FiO2 75% and PEEP of 6. POD#8 s/p ex lap and small bowel resection for necrotic bowel secondary to incarcerated ventral hernia left with open abdomen. POD#5 s/p abdominal exploration with segmental small bowel resection. abthera placement POD#2 s/p abdominal exploration, small bowel resection for ischemia, abthera placement -[facility], surgery, infectious disease, nephrology consulted, appreciate recommendations -IV abx per ID: Zosyn, fluconazole -NGT to LIWS -NPO for now, TPN -SSI, Accucheck q6 -Vasopressor support with levophed -On mechanical ventilation, wean as tolerated, VAP bundle -Sedated with propofol and analgesia with fentanyl drip -Trend CBC, BMP, Mg, Phos -GI/DVT prophylaxis: PPI, SCDs to bilateral lower extremities while in bed, avoid chemical anticoagulation to cleared by surgery 12/29: Patient underwent abdominal exploration, small bowel resection, small bowel anastomosis and ABThera wound VAC placement this a.m. Patient remains on AC mode ventilation with a rate of 24, tidal volume 500, FiO2 65% and PEEP of 6. Continue antibiotics per ID recommendations. Continue vasopressor support as needed. Continue TPN for nutritional support. 12/30: Patient currently with AC mode ventilation rate of 24, tidal volume 500, FiO2 60% and PEEP of 6. Patient underwent further surgery yesterday with another abdominal exploration, small bowel resection, small bowel anastomosis and replacement of the ABThera wound VAC. Patient continues to require vasopressor support with vasopressin and Levophed. Continue TPN for nutrition. Continue propofol and fentanyl for sedation. Continue Zosyn per ID recommendations 12/31: Patient currently with AC mode ventilation rate of 24, tidal volume 500, FiO2 50% and PEEP of 6. POD#12 s/p ex lap and small bowel resection for necrotic bowel secondary to incarcerated ventral hernia left with open abdomen. POD#9 s/p abdominal exploration with segmental small bowel resection. abthera placement POD#3 s/p abdominal exploration, small bowel resection for ischemia, abthera placement POD#2 s/p abdominal exploration with small bowel anastamosis and abthera vac placement Continue hemodialysis per nephrology recommendations. Surgery plans for abdominal washout and bowel examination on Saturday. If anastamosis looks viable and no other issues, surgery plans to close his abdomen. 01/01: Continue current ventilator settings per pulmonary monitor ABG. Continue antibiotics per ID recommendations. Surgery plans for abdominal washout and bowel examination. If anastamosis looks viable and no other issues, surgery plans to close his abdomen. Wean pressors to maintain MAP > 65. Continue TPN for nutritional support. Hemodialysis per nephrology recommendations. Prognosis remains guarded. 01/02: At the time my examination patient was only on vasopressin for vasopressor support, sedated on 30 mcg of propofol and 4 mcg of fentanyl. Patient was on CMV tidal volume 500, rate of 12, PEEP of 10 and 50% FiO2. Patient remains on TPN and with NG tube to low intermittent suction. Patient underwent a myocutaneous flap creation, abdominal wall component separation and placement of phasix mesh with surgery yesterday where his abdomen was closed and 2 LAURA drains were placed on either side of his midline between fascia and subcu tissue. Per infectious his antibiotics will continue until 5 days postop from a final surgery. Patient has increasing leukocytosis which are likely reactive to surgery and patient will have hemodialysis today for clearance and volume removal. Patient sedation and mechanical ventilation will be weaned for extubation. Hospitalist Physical - Constitutional Vitals: Temp Pulse Resp BP Pulse Ox 98.2 F 91 H 25 H 103/46 100 01/02/21 07:00 01/02/21 09:00 01/01/21 16:00 01/02/21 09:00 01/02/21 09:00 General appearance: Present: no acute distress, well-nourished HEART Score - HEART Score Troponin: Troponin T < 0.010 ng/mL (0.00-0.029) 12/20/20 13:58 Results - Labs CBC & Chem 7: 01/02/21 08:00 01/02/21 08:00 Labs: Laboratory Last Values WBC 19.7 K/mm3 (4.5-11.0) H 01/02/21 08:00 RBC 2.53 M/mm3 (3.65-5.03) L 01/02/21 08:00 Hgb 7.1 gm/dl (11.8-15.2) L 01/02/21 08:00 Hct 22.0 % (35.5-45.6) L 01/02/21 08:00 MCV 87 fl (84-94) 01/02/21 08:00 MCH 28 pg (28-32) 01/02/21 08:00 MCHC 32 % (32-34) 01/02/21 08:00 RDW 16.4 % (13.2-15.2) H 01/02/21 08:00 Plt Count 352 K/mm3 (140-440) 01/02/21 08:00 Add Manual Diff Complete 12/31/20 16:23 Total Counted 100 12/31/20 16:23 Seg Neutrophils % Fisher Diving 12/31/20 16:23 Seg Neuts % (Manual) 91.0 % (40.0-70.0) H 12/31/20 16:23 Band Neutrophils % 2.0 % 12/31/20 16:23 Lymphocytes % (Manual) 6.0 % (13.4-35.0) L 12/31/20 16:23 Monocytes % (Manual) 1.0 % (0.0-7.3) 12/31/20 16:23 Nucleated RBC % Not Reportable 12/31/20 16:23 Seg Neutrophils # Man 16.4 K/mm3 (1.8-7.7) H 12/31/20 16:23 Band Neutrophils # 0.4 K/mm3 12/31/20 16:23 Lymphocytes # (Manual) 1.1 K/mm3 (1.2-5.4) L 12/31/20 16:23 Abs React Lymphs (Man) 0.0 K/mm3 12/31/20 16:23 Monocytes # (Manual) 0.2 K/mm3 (0.0-0.8) 12/31/20 16:23 Eosinophils # (Manual) 0.0 K/mm3 (0.0-0.4) 12/31/20 16:23 Basophils # (Manual) 0.0 K/mm3 (0.0-0.1) 12/31/20 16:23 Metamyelocytes # 0.0 K/mm3 12/31/20 16:23 Myelocytes # 0.0 K/mm3 12/31/20 16:23 Promyelocytes # 0.0 K/mm3 12/31/20 16:23 Blast Cells # 0.0 K/mm3 12/31/20 16:23 WBC Morphology Not Reportable 12/31/20 16:23 Hypersegmented Neuts Not Reportable 12/31/20 16:23 Hyposegmented Neuts Not Reportable 12/31/20 16:23 Hypogranular Neuts Not Reportable 12/31/20 16:23 Smudge Cells Not Reportable 12/31/20 16:23 Toxic Granulation Not Reportable 12/31/20 16:23 Toxic Vacuolation Not Reportable 12/31/20 16:23 Dohle Bodies Not Reportable 12/31/20 16:23 Pelger-Huet Anomaly Not Reportable 12/31/20 16:23 Mirian Rods Not Reportable 12/31/20 16:23 Platelet Estimate Consistent w auto 12/31/20 16:23 Clumped Platelets Not Reportable 12/31/20 16:23 Plt Clumps, EDTA Not Reportable 12/31/20 16:23 Large Platelets Not Reportable 12/31/20 16:23 Giant Platelets Not Reportable 12/31/20 16:23 Platelet Satelliting Not Reportable 12/31/20 16:23 Plt Morphology Comment Not Reportable 12/31/20 16:23 RBC Morphology Not Reportable 12/31/20 16:23 Dimorphic RBCs Not Reportable 12/31/20 16:23 Polychromasia Not Reportable 12/31/20 16:23 Hypochromasia Not Reportable 12/31/20 16:23 Poikilocytosis Not Reportable 12/31/20 16:23 Anisocytosis 1+ 12/31/20 16:23 Microcytosis Not Reportable 12/31/20 16:23 Macrocytosis Not Reportable 12/31/20 16:23 Spherocytes Not Reportable 12/31/20 16:23 Pappenheimer Bodies Not Reportable 12/31/20 16:23 Sickle Cells Not Reportable 12/31/20 16:23 Target Cells Not Reportable 12/31/20 16:23 Tear Drop Cells Not Reportable 12/31/20 16:23 Ovalocytes Not Reportable 12/31/20 16:23 Helmet Cells Not Reportable 12/31/20 16:23 Mart-[place] Bodies Not Reportable 12/31/20 16:23 Hardin Rings Not Reportable 12/31/20 16:23 Mcfaddin Cells Not Reportable 12/31/20 16:23 Bite Cells Not Reportable 12/31/20 16:23 Crenated Cell Not Reportable 12/31/20 16:23 Elliptocytes Not Reportable 12/31/20 16:23 Acanthocytes (Spur) Not Reportable 12/31/20 16:23 Rouleaux Not Reportable 12/31/20 16:23 Hemoglobin C Crystals Not Reportable 12/31/20 16:23 Schistocytes Not Reportable 12/31/20 16:23 Malaria parasites Not Reportable 12/31/20 16:23 Dylon Bodies Not Reportable 12/31/20 16:23 Hem Pathologist Commnt No 12/31/20 16:23 APTT 49.4 Sec. (24.2-36.6) H 12/20/20 13:58 ABG pH 7.276 (7.320-7.450) L 01/02/21 03:47 POC ABG pCO2 39.4 mmHg (32.0-48.0) 01/02/21 03:47 ABG pCO2 51.0 mm Hg 12/20/20 21:30 POC ABG pO2 173.6 mmHg (83-108) H 01/02/21 03:47 ABG pO2 104.4 mm Hg (80.0-90.0) H 12/20/20 21:30 POC ABG HCO3 17.9 01/02/21 03:47 ABG HCO3 25.3 mmol/L (20.0-26.0) 12/20/20 21:30 ABG O2 Saturation 99.2 (0-100) 01/02/21 03:47 ABG O2 Content 20.3 (0.0-44) 12/20/20 21:30 POC ABG Base Excess -8.2 01/02/21 03:47 ABG Base Excess -1.7 mmol/L (-2.0-3.0) 12/20/20 21:30 ABG Hemoglobin 7 (12.0-17.5) L 01/02/21 03:47 ABG Oxyhemoglobin 97.9 (94-98) 01/02/21 03:47 ABG Carboxyhemoglobin 1.3 % (0.0-5.0) 12/20/20 21:30 ABG Methemoglobin 0.3 (0.0-1.5) 01/02/21 03:47 ABG Sodium 122.4 mmol/L (136.0-145.0) L 01/02/21 03:47 ABG Potassium 4.0 mmol/L (3.40-4.50) 01/02/21 03:47 ABG Chloride 94.0 mmol/L (98-107) L 01/02/21 03:47 ABG Glucose 118 mg/dL (65-95) H 01/02/21 03:47 Oxyhemoglobin 95.2 % (95.0-99.0) 12/20/20 21:30 Carboxyhemoglobin 1 (0.5-1.5) 01/02/21 03:47 FiO2 100 % 12/20/20 21:30 FiO2 % 70 01/02/21 03:47 Sodium 127 mmol/L (137-145) L 01/02/21 08:00 Potassium 4.1 mmol/L (3.6-5.0) 01/02/21 08:00 Chloride 89.3 mmol/L (98-107) L 01/02/21 08:00 Carbon Dioxide 19 mmol/L (22-30) L 01/02/21 08:00 Anion Gap 23 mmol/L 01/02/21 08:00 BUN 82 mg/dL (9-20) H 01/02/21 08:00 Creatinine 5.0 mg/dL (0.8-1.3) H 01/02/21 08:00 Estimated GFR 12 ml/min 01/02/21 08:00 BUN/Creatinine Ratio 16 % 01/02/21 08:00 Glucose 103 mg/dL (75-100) H 01/02/21 08:00 POC Glucose 107 mg/dL (70-105) H 01/02/21 05:33 Lactic Acid 1.70 mmol/L (0.7-2.0) 12/20/20 16:20 Calcium 7.8 mg/dL (8.4-10.2) L 01/02/21 08:00 Ionized Calcium 3.3 mg/dL (4.8-5.6) L 12/27/20 14:40 Phosphorus 6.40 mg/dL (2.5-4.5) H 01/02/21 08:00 Magnesium 1.80 mg/dL (1.7-2.3) 01/02/21 08:00 Total Bilirubin 0.50 mg/dL (0.1-1.2) 01/02/21 08:00 AST 47 units/L (5-40) H 01/02/21 08:00 ALT 26 units/L (7-56) 01/02/21 08:00 Alkaline Phosphatase 80 units/L (35-129) 01/02/21 08:00 Troponin T < 0.010 ng/mL (0.00-0.029) 12/20/20 13:58 Total Protein 5.0 g/dL (6.3-8.2) L 01/02/21 08:00 Albumin 1.6 g/dL (3.9-5) L 01/02/21 08:00 Albumin/Globulin Ratio 0.5 % 01/02/21 08:00 Triglycerides 157 mg/dL (2-149) H 12/31/20 04:40 Arterial Blood Glucose 118 mg/dL (65-95) H 01/02/21 03:47 Arterial Blood Ionized Calcium 4.0 mg/dL (4.6-5.3) L 01/02/21 03:47 Urine Color Yellow (Yellow) 12/23/20 12:15 Urine Turbidity Cloudy (Clear) 12/23/20 12:15 Urine pH 5.0 (5.0-7.0) 12/23/20 12:15 Ur Specific [place] 1.019 (1.003-1.030) 12/23/20 12:15 Urine Protein <15 mg/dl mg/dL (Negative) 12/23/20 12:15 Urine Glucose (UA) Neg mg/dL (Negative) 12/23/20 12:15 Urine Ketones Neg mg/dL (Negative) 12/23/20 12:15 Urine Blood Sm (Negative) 12/23/20 12:15 Urine Nitrite Neg (Negative) 12/23/20 12:15 Urine Bilirubin Neg (Negative) 12/23/20 12:15 Urine Urobilinogen < 2.0 mg/dL (<2.0) 12/23/20 12:15 Ur Leukocyte Esterase Neg (Negative) 12/23/20 12:15 Urine WBC (Auto) 5.0 /HPF (0.0-6.0) 12/23/20 12:15 Urine RBC (Auto) 2.0 /HPF (0.0-6.0) 12/23/20 12:15 U Epithel Cells (Auto) < 1.0 /HPF (0-13.0) 12/20/20 Unknown Urine Bacteria (Auto) 1+ /HPF (Negative) 12/23/20 12:15 Triple Phos Crystals 2+ 12/23/20 12:15 Hyaline Casts 19 /LPF 12/20/20 Unknown Urine Mucus Few /HPF 12/23/20 12:15 Urine Eosinophils None seen (None Seen) 12/23/20 12:15 Urine Creatinine 78.1 mg/dL (0.1-20.0) H 12/23/20 12:15 Urine Sodium 13 mmol/L 12/23/20 12:15 Fraction Sodium Excret 0.2 12/23/20 12:15 Random Vancomycin 7.9 ug/mL (0-40.0) 12/23/20 12:15 Coronavirus (PCR) Negative (Negative) 12/21/20 Unknown Hepatitis A IgM Ab Non-reactive (NonReactive) 12/30/20 14:40 Hep Bs Antigen Non-reactive (Negative) 12/30/20 14:40 Hep B Core IgM Ab Non-reactive (NonReactive) 12/30/20 14:40 Hepatitis C Antibody Non-reactive (NonReactive) 12/30/20 14:40 Blood Type A NEGATIVE 12/29/20 05:20 Antibody Screen Negative 12/29/20 05:20 [place]/IV: Voiding Method Indwelling Catheter Active Medications - Current Medications Current Medications: Generic Name Dose Route Start Last Admin Trade Name Freq PRN Reason Stop Dose Admin Acetaminophen 650 mg 12/21/20 11:51 12/25/20 20:35 Acetaminophen 650 Mg Rect Supp VT 650 mg Q4H PRN Administration TEMP >/=100.4 Bisacodyl 10 mg 12/30/20 11:00 01/02/21 09:28 Bisacodyl 10 Mg Rect Supp VT 10 mg QDAY ASCENCION Administration Dextrose 50 ml 12/24/20 10:49 Dextrose 50% In Water (25gm) 50 Ml Syringe IV Q30MIN PRN Hypoglycemia Protocol Famotidine 20 mg 12/26/20 10:00 01/02/21 09:28 Famotidine 20 Mg/2 Ml Inj IV 20 mg DAILY ASCENCION Administration Fentanyl 50 mcg 12/20/20 21:58 12/21/20 03:46 Fentanyl 100 Mcg/2 Ml Inj IV 50 mcg Q10MIN PRN Administration ANALGESIA Hydrophilic Ointment 1 applic 12/20/20 21:58 Lip Therapy Vaseline TP Q2HR PRN Dry Lips Fentanyl Citrate 2,000 mcg in 100 mls @ 6.01 mls/hr 12/20/20 22:00 01/02/21 10:41 Fentanyl Drip Premix IV 3 mcg/kg/hr TITR ASCENCION 18.03 mls/hr Administration Protocol 1 MCG/KG/HR Propofol 1,000 mg in 100 mls @ 3.606 mls/hr 12/20/20 22:00 01/02/21 09:30 Diprivan 10 Mg/Ml IV 0 mcg/kg/min TITR ASCENCION 0 mls/hr Titration Protocol 5 MCG/KG/MIN NORepinephrine/NS 8 MG-250 ML 8 mg in 250 mls @ 3.75 mls/hr 12/21/20 09:00 01/02/21 06:15 Norepinephrine/Ns 8 Mg-250 Ml (Double Conc) IV 0 mcg/min TITRATE ASCENCION 0 mls/hr Titration Protocol 2 MCG/MIN Vasopressin 20 unit/ Sodium 101 mls @ 9.09 mls/hr 12/24/20 09:00 01/02/21 09:49 Chloride IV 0 units/min TITR ASCENCION 0 mls/hr Titration Protocol 0.03 UNITS/MIN Piperacillin Sod/Tazobactam Sod 4.5 gm in 100 mls @ 200 mls/hr 12/26/20 18:00 01/02/21 06:30 Zosyn/Ns 4.5gm/100ml IV Infused Q12H ASCENCION Infusion Protocol Fluconazole 200 mg in 100 mls @ 100 mls/hr 12/26/20 10:00 01/02/21 09:30 Diflucan IV 100 mls/hr Q24H ASCENCION Administration Protocol Amino Acids/Electrolytes/Dextrose 2,400 mls @ 100 mls/hr 01/01/21 20:00 01/01/21 20:40 Tpn Adult IV 01/02/21 19:59 100 mls/hr DAILY@2000 ASCENCION Administration Protocol Sodium Chloride 100 mls @ 999 mls/hr 01/02/21 08:48 Nacl 0.9% IV MARILU PRN Hypotension Insulin Human Regular 0 units 12/28/20 00:00 01/02/21 06:00 Insulin Regular, Human 100 Units/1 Ml SUB-Q Not Given Q6H ASCENCION Protocol Multi-Ingred Cream/Lotion/Oil/Oint 1 applic 12/20/20 21:58 Mineral Oil/Petrolatum, White Ophth Oint 3.5 Gm OU Q4HR PRN Dry Eye(s) Sodium Chloride 10 ml 12/20/20 22:00 01/01/21 22:42 Sodium Chloride 0.9% 10 Ml Flush Syringe IV 10 ml BID ASCENCION Administration Sodium Chloride 10 ml 12/20/20 16:42 Sodium Chloride 0.9% 10 Ml Flush Syringe IV PRN PRN LINE FLUSH Nutrition/Malnutrition Assess - Dietary Evaluation Nutrition/Malnutrition Findings: Nutrition Notes Start: 12/21/20 09:06 Freq: Status: Active Protocol: Document 01/02/21 09:56 (Rec: 01/02/21 09:58 [id number]) Nutrition Notes Initial or Follow up Reassessment Current Diagnosis Acute Kidney Injury,Coronary Artery Disease,Hypertension, Small Bowel Obstruction, Hyperlipidemia Other Pertinent Diagnosis gangrenous small bowel, s/p small bowel ressection, peritonitis Current Diet TPN at 100 ml/hr Labs/Tests Phos 6.4 BUN 82 Cr 5 AST 47 Pertinent Medications Norepinephrine, vasopressin propofol at 21.636 Height 6 ft Weight 137.3 kg [place] Body Weight (kg) 80.90 BMI 41.0 Weight Status Morbidly Obese Subjective/Other Information Day 10 CPN. Pt abd closed. Pt getting HD today and tomorrow. Percent of energy/protein needs met: 96%/74% Burn Absent Trauma Absent GI Symptoms Other Current % PO Negligible Minimum of two criteria No Fluid Accumulation Mild (non-severe) #2 Nutrition Diagnosis Increased nutrient needs ( specify in comment below) Diagnosis Progress(for reassessment Continues documentation) #1 Nutrition Diagnosis Inadequate oral intake Diagnosis Progress(for reassessment Continues documentation) Is patient on ventilator? Yes Is Patient Ambulatory and/or Out of Bed No REE-([facility]-conf[facility]) 2675.220 Kcal/Kg value to use for calculation 14 Approximate Energy Requirements Using 1922 kcal/Kg Calculation Used for Recommendations Kcal/kg Additional Notes Pro needs >2g/kg IBW: >162g/ day Fluid needs per MD Nutrition Intervention Change Diet Order: Continue CPN Nutrition Support: CPN at 100 ml/hr: MVI Kcal 1,840 Protein (gm) 120 Carbohydrates (gm) 40 Fat (gm) 0 Fluid (mL) 2,400 Fiber (gm) 0 Goal #1 Meet needs as best as possible via CPN Anticipated Discharge Needs: Unable to determine at this time Follow-Up By: 01/03/21 Additional Comments FU for TPN
--- NOTE | 2021-01-02 12:53 | Progress Note ---
Assessment and Plan Cultures: 12/20/2020 sputum culture: In process 12/20/2020 blood culture: No growth 12/20/2020 urine culture: Usual skin giorgio A/P: 60-year-old male with obesity, hypertension, tobacco abuse, coronary artery disease, admitted to the hospital on 12/20/2020 with: #Septic shock: Secondary to intra-abdominal source, peritonitis. Patient with necrotic bowel secondary to incarcerated ventral hernia. Status post exploratory laparotomy, extensive adhesiolysis, small bowel resection and peritoneal lavage along with ABThera VAC placement on 12/20/2020, replacement 12/29/2020. Remains on 2x pressors. #JONI: Renally dose antibiotics. #Morbid obesity Recs: -continue renally dosed Zosyn. -continue Fluconazole 200 mg daily -Will continue antibiotics until 5 days post his final surgery pending clinical course, -increase in leukocytosis likely reactive to surgery. Continue to follow. We will continue to follow. Priscilla Marie MD [facility] O: [phone] F: [phone] Subjective Date of service: 01/02/21 Principal diagnosis: SBO and necrosis of large part of small intestine Interval history: Afebrile, white count stable. Returned to surgery yesterday for flap creation and mesh placement. Objective - Exam Narrative Exam: Physical Exam: Constitutional: sedated, intubated, on the vent Head, Ears, Nose: Normocephalic, atraumatic. External ears, nose normal Eyes: Conjunctivae/corneas clear. No icterus. No ptosis. Neck: intubated Oral: intubated Cardiovascular: S1, S2 + Respiratory: AE fair bilaterally and equal GI: Woundvac in place Musculoskeletal: No pedal edema, no cyanosis. Skin: No rash or abscess Hem/Lymphatic: No palpable cervical or supraclavicular nodes. No lymphangitis Psych: no agitation Neurological: sedated, intubated, on the vent, exam limited - Constitutional Vitals: Vital Signs Temp Pulse Resp BP Pulse Ox 98.2 F 112 H 25 H 147/77 96 01/02/21 07:00 01/02/21 11:37 01/01/21 16:00 01/02/21 11:37 01/02/21 11:37 Temperature -Last 24 Hours Temperature 98.2 F Temperature 98.8 F Temperature 98.8 F Temperature 98.3 F Temperature 98.1 F Temperature 99.5 F Temperature 99.3 F - Labs CBC & Chem 7: 01/02/21 08:00 01/02/21 08:00 Labs: Abnormal lab results 01/01/21 01/01/21 01/01/21 Range/Units 13:41 15:55 17:09 WBC (4.5-11.0) K/mm3 RBC (3.65-5.03) M/mm3 Hgb (11.8-15.2) gm/dl Hct (35.5-45.6) % RDW (13.2-15.2) % ABG pH 7.148 L 7.207 L (7.320-7.450) POC ABG pCO2 53.1 H (32.0-48.0) mmHg POC ABG pO2 57.3 L 138.4 H (83-108) mmHg ABG Hemoglobin 9.0 L 8.3 L (12.0-17.5) ABG Oxyhemoglobin 83.2 L (94-98) ABG Sodium 126.2 L 124.5 L (136.0-145.0) mmol/L ABG Chloride 95.0 L 95.0 L (98-107) mmol/L ABG Glucose 96 H 120 H (65-95) mg/dL Sodium (137-145) mmol/L Chloride (98-107) mmol/L Carbon Dioxide (22-30) mmol/L BUN (9-20) mg/dL Creatinine (0.8-1.3) mg/dL Glucose (75-100) mg/dL POC Glucose 124 H (70-105) mg/dL Calcium (8.4-10.2) mg/dL Phosphorus (2.5-4.5) mg/dL AST (5-40) units/L Total Protein (6.3-8.2) g/dL Albumin (3.9-5) g/dL Arterial Blood Glucose 96 H 120 H (65-95) mg/dL Arterial Blood Ionized Calcium 4.1 L 3.9 L (4.6-5.3) mg/dL 01/01/21 01/02/21 01/02/21 Range/Units 23:24 03:47 05:33 WBC (4.5-11.0) K/mm3 RBC (3.65-5.03) M/mm3 Hgb (11.8-15.2) gm/dl Hct (35.5-45.6) % RDW (13.2-15.2) % ABG pH 7.276 L (7.320-7.450) POC ABG pCO2 (32.0-48.0) mmHg POC ABG pO2 173.6 H (83-108) mmHg ABG Hemoglobin 7 L (12.0-17.5) ABG Oxyhemoglobin (94-98) ABG Sodium 122.4 L (136.0-145.0) mmol/L ABG Chloride 94.0 L (98-107) mmol/L ABG Glucose 118 H (65-95) mg/dL Sodium (137-145) mmol/L Chloride (98-107) mmol/L Carbon Dioxide (22-30) mmol/L BUN (9-20) mg/dL Creatinine (0.8-1.3) mg/dL Glucose (75-100) mg/dL POC Glucose 119 H 107 H (70-105) mg/dL Calcium (8.4-10.2) mg/dL Phosphorus (2.5-4.5) mg/dL AST (5-40) units/L Total Protein (6.3-8.2) g/dL Albumin (3.9-5) g/dL Arterial Blood Glucose 118 H (65-95) mg/dL Arterial Blood Ionized Calcium 4.0 L (4.6-5.3) mg/dL 01/02/21 01/02/21 Range/Units 08:00 08:00 WBC 19.7 H (4.5-11.0) K/mm3 RBC 2.53 L (3.65-5.03) M/mm3 Hgb 7.1 L (11.8-15.2) gm/dl Hct 22.0 L (35.5-45.6) % RDW 16.4 H (13.2-15.2) % ABG pH (7.320-7.450) POC ABG pCO2 (32.0-48.0) mmHg POC ABG pO2 (83-108) mmHg ABG Hemoglobin (12.0-17.5) ABG Oxyhemoglobin (94-98) ABG Sodium (136.0-145.0) mmol/L ABG Chloride (98-107) mmol/L ABG Glucose (65-95) mg/dL Sodium 127 L (137-145) mmol/L Chloride 89.3 L (98-107) mmol/L Carbon Dioxide 19 L (22-30) mmol/L BUN 82 H (9-20) mg/dL Creatinine 5.0 H (0.8-1.3) mg/dL Glucose 103 H (75-100) mg/dL POC Glucose (70-105) mg/dL Calcium 7.8 L (8.4-10.2) mg/dL Phosphorus 6.40 H (2.5-4.5) mg/dL AST 47 H (5-40) units/L Total Protein 5.0 L (6.3-8.2) g/dL Albumin 1.6 L (3.9-5) g/dL Arterial Blood Glucose (65-95) mg/dL Arterial Blood Ionized Calcium (4.6-5.3) mg/dL
--- NOTE | 2021-01-02 14:03 | Post Anesthesia Evaluation ---
- Post Anesthesia Evaluation Patient Participated: No Airway Patent: Yes (intubated) Stable Respiratory Function: No (SpO2 91%, FiO2 50%, PEEP 10) Nausea/Vomiting: No Temp > 96.8F: Yes Pain Manageable: Yes Adequeate Hydration: No (prepared for hemodialysis) Anesthesia Complications: No Block Receding Appropriately: Not Applicable Patient on Ventilator: Yes Other Comments: Patient is off pressors BP 151/84
--- NOTE | 2021-01-02 17:04 | Progress Note ---
Assessment and Plan Impression * Acute kidney injury. * Incarcerated hernia with ischemic bowel. Status post bowel resection * Hypernatremia, now with hyponatremia * Sepsis * Respiratory failure, intubated * Hyperkalemia * Metabolic Acidosis, Gap * Hypoalbuminemia Recommendations * Started HD 12/30 for worsening renal function, electrolyte abnormalities, and worsening volume * Likely will need pressor support for HD; had HD 12/31, no HD yesterday, plan for HD today for clearance and volume * Hold IVF * Patient currently has indwelling Lawrence catheter in place * TPN per nutrition/primary * Pressors to maintain MAP greater than 65 * Avoid nephrotoxins * Monitor fluid status and electrolytes * Strict I/O Subjective Date of service: 01/02/21 Principal diagnosis: SBO and necrosis of large part of small intestine Interval history: Remains intubated. Plan to wean off sedation today Objective - Exam Narrative Exam: General: Sedated. Intubated HEENT: Oral mucosa moist Neck: Supple, no JVD Chest: Intubated, mechanical breath sounds Heart: RRR, S1 and S2, no pericardial rub Abdomen: Open abdomen Extremity: No peripheral cyanosis, edema Neurological: Sedated Dermatology: No skin rash Psych: Unable to assess Musculoskeletal: No joint effusion - Vital Signs Vital signs: Vital Signs - 12hr 01/02/21 01/02/21 01/02/21 05:00 05:15 05:30 Temperature Pulse Rate 90 91 H 90 Respiratory Rate Blood Pressure 102/47 104/46 89/44 O2 Sat by Pulse 99 96 Oximetry O2 Sat by Pulse Oximetry [ Anterior Bilateral Throughout] 01/02/21 01/02/21 01/02/21 05:45 06:00 06:15 Temperature Pulse Rate 90 88 87 Respiratory Rate Blood Pressure 91/44 113/54 113/50 O2 Sat by Pulse 96 97 Oximetry O2 Sat by Pulse Oximetry [ Anterior Bilateral Throughout] 01/02/21 01/02/21 01/02/21 06:30 06:45 07:00 Temperature 98.2 F Pulse Rate 89 90 90 Respiratory Rate Blood Pressure 117/55 109/51 100/47 O2 Sat by Pulse 95 98 96 Oximetry O2 Sat by Pulse Oximetry [ Anterior Bilateral Throughout] 01/02/21 01/02/21 01/02/21 07:15 07:30 07:45 Temperature Pulse Rate 90 90 92 H Respiratory Rate Blood Pressure 104/47 102/46 119/56 O2 Sat by Pulse 97 97 98 Oximetry O2 Sat by Pulse Oximetry [ Anterior Bilateral Throughout] 01/02/21 01/02/21 01/02/21 08:00 08:15 08:30 Temperature Pulse Rate 91 H 94 H 92 H Respiratory Rate Blood Pressure 106/47 124/51 118/49 O2 Sat by Pulse 98 97 Oximetry O2 Sat by Pulse Oximetry [ Anterior Bilateral Throughout] 01/02/21 01/02/21 01/02/21 08:45 09:00 11:37 Temperature Pulse Rate 91 H 91 H 112 H Respiratory Rate Blood Pressure 106/47 103/46 147/77 O2 Sat by Pulse 96 100 96 Oximetry O2 Sat by Pulse Oximetry [ Anterior Bilateral Throughout] 01/02/21 01/02/21 01/02/21 12:54 14:14 14:30 Temperature 98.9 F 98.1 F Pulse Rate 116 H 114 H Respiratory 23 Rate Blood Pressure 129/68 139/70 O2 Sat by Pulse Oximetry O2 Sat by Pulse 93 Oximetry [ Anterior Bilateral Throughout] 01/02/21 01/02/21 01/02/21 14:45 15:00 15:15 Temperature Pulse Rate 115 H 116 H 114 H Respiratory Rate Blood Pressure 133/59 145/66 122/62 O2 Sat by Pulse Oximetry O2 Sat by Pulse Oximetry [ Anterior Bilateral Throughout] 01/02/21 01/02/21 01/02/21 15:30 15:45 16:00 Temperature Pulse Rate 111 H 107 H 108 H Respiratory Rate Blood Pressure 119/53 111/63 116/52 O2 Sat by Pulse Oximetry O2 Sat by Pulse Oximetry [ Anterior Bilateral Throughout] 01/02/21 01/02/21 01/02/21 16:15 16:19 16:30 Temperature Pulse Rate 108 H 110 H 106 H Respiratory Rate Blood Pressure 115/61 116/52 109/58 O2 Sat by Pulse 95 Oximetry O2 Sat by Pulse Oximetry [ Anterior Bilateral Throughout] 01/02/21 16:45 Temperature Pulse Rate 104 H Respiratory Rate Blood Pressure 109/60 O2 Sat by Pulse Oximetry O2 Sat by Pulse Oximetry [ Anterior Bilateral Throughout] - Lab 01/02/21 08:00 01/02/21 08:00 Most recent lab results ABG pH 7.276 (7.320-7.450) L 01/02/21 03:47 ABG pCO2 51.0 mm Hg 12/20/20 21:30 ABG pO2 104.4 mm Hg (80.0-90.0) H 12/20/20 21:30 ABG HCO3 25.3 mmol/L (20.0-26.0) 12/20/20 21:30 ABG O2 Saturation 99.2 (0-100) 01/02/21 03:47 Calcium 7.8 mg/dL (8.4-10.2) L 01/02/21 08:00 Phosphorus 6.40 mg/dL (2.5-4.5) H 01/02/21 08:00 Magnesium 1.80 mg/dL (1.7-2.3) 01/02/21 08:00 Urine Creatinine 78.1 mg/dL (0.1-20.0) H 12/23/20 12:15 Urine Sodium 13 mmol/L 12/23/20 12:15 Medications & Allergies - Medications Allergies/Adverse Reactions: Allergies Iodinated Contrast Media Adverse Reaction (Verified 09/04/18 14:20) Unknown Home Medications: Home Medications Medication Instructions Recorded Confirmed Last Taken Type Aspirin 81 mg PO DAILY #30 tab.chew 09/08/18 09/12/20 03/31/20 09:28 Rx AtorvaSTATin [Lipitor] 80 mg PO QHS tablet 05/08/19 09/12/20 03/28/20 Rx Albuterol Sulfate [Proventil Hfa] 13.4 gm IH Q6H #1 hfa.aer.ad 04/01/20 09/12/20 Unknown Rx Clopidogrel [Plavix] 75 mg PO DAILY #30 tablet 04/01/20 09/12/20 Unknown Rx Gabapentin 300 mg PO BID@0700,1800 30 Days 04/01/20 09/12/20 Unknown Rx capsule Gabapentin 600 mg PO QHS 30 Days capsule 04/01/20 09/12/20 Unknown Rx Metoprolol [Lopressor TAB] 25 mg PO BID #60 tablet 04/01/20 09/12/20 Unknown Rx Marion-3/Dha/Epa/Fish Oil [[place] 3 1 each PO BID #60 capsule 04/01/20 09/12/20 Unknown Rx 500 Softgel] Tiotropium [place] [Spiriva] 2 puff IH DAILY #30 cap.w.dev 04/01/20 09/12/20 Unknown Rx Ubidecarenone [Co Q-10] 10 mg PO BID #60 tab 04/01/20 09/12/20 03/29/20 Rx cilostazoL [Pletal] 50 mg PO BID 30 Days tablet 04/01/20 09/12/20 Unknown Rx oxyCODONE /ACETAMINOPHEN [Percocet 2 tab PO Q6H PRN tablet 04/01/20 09/12/20 Unknown Rx 5/325 mg] Phosphorus #1 [K-Phos Neutral] 250 mg PO QID 2 Days #8 tablet 09/14/20 Unknown Rx Active Medications: Generic Name Dose Route Start Last Admin Trade Name Freq PRN Reason Stop Dose Admin Acetaminophen 650 mg 12/21/20 11:51 12/25/20 20:35 Acetaminophen 650 Mg Rect Supp IN 650 mg Q4H PRN Administration TEMP >/=100.4 Bisacodyl 10 mg 12/30/20 11:00 01/02/21 09:28 Bisacodyl 10 Mg Rect Supp IN 10 mg QDAY ASCENCION Administration Dextrose 50 ml 12/24/20 10:49 Dextrose 50% In Water (25gm) 50 Ml Syringe IV Q30MIN PRN Hypoglycemia Protocol Famotidine 20 mg 12/26/20 10:00 01/02/21 09:28 Famotidine 20 Mg/2 Ml Inj IV 20 mg DAILY ASCENCION Administration Fentanyl 50 mcg 12/20/20 21:58 12/21/20 03:46 Fentanyl 100 Mcg/2 Ml Inj IV 50 mcg Q10MIN PRN Administration ANALGESIA Hydrophilic Ointment 1 applic 12/20/20 21:58 Lip Therapy Vaseline TP Q2HR PRN Dry Lips Fentanyl Citrate 2,000 mcg in 100 mls @ 6.01 mls/hr 12/20/20 22:00 01/02/21 16:15 Fentanyl Drip Premix IV 3 mcg/kg/hr TITR ASCENCION 18.03 mls/hr Administration Protocol 1 MCG/KG/HR Propofol 1,000 mg in 100 mls @ 3.606 mls/hr 12/20/20 22:00 01/02/21 13:45 Diprivan 10 Mg/Ml IV 15 mcg/kg/min TITR ASCENCION 10.818 mls/hr Titration Protocol 5 MCG/KG/MIN NORepinephrine/NS 8 MG-250 ML 8 mg in 250 mls @ 3.75 mls/hr 12/21/20 09:00 01/02/21 06:15 Norepinephrine/Ns 8 Mg-250 Ml (Double Conc) IV 0 mcg/min TITRATE ASCENCION 0 mls/hr Titration Protocol 2 MCG/MIN Vasopressin 20 unit/ Sodium 101 mls @ 9.09 mls/hr 12/24/20 09:00 01/02/21 09 :49 Chloride IV 0 units/min TITR ASCENCION 0 mls/hr Titration Protocol 0.03 UNITS/MIN Piperacillin Sod/Tazobactam Sod 4.5 gm in 100 mls @ 200 mls/hr 12/26/20 18:00 01/02/21 06:30 Zosyn/Ns 4.5gm/100ml IV Infused Q12H ASCENCION Infusion Protocol Fluconazole 200 mg in 100 mls @ 100 mls/hr 12/26/20 10:00 01/02/21 09:30 Diflucan IV 100 mls/hr Q24H ASCENCION Administration Protocol Amino Acids/Electrolytes/Dextrose 2,400 mls @ 100 mls/hr 01/01/21 20:00 01/01/21 20:40 Tpn Adult IV 01/02/21 19:59 100 mls/hr DAILY@1999 [facility] Administration Protocol Sodium Chloride 100 mls @ 999 mls/hr 01/02/21 08:48 Nacl 0.9% IV MARILU PRN Hypotension Amino Acids/Electrolytes/Dextrose 2,400 mls @ 100 mls/hr 01/02/21 20:00 Tpn Adult IV 01/03/21 19:59 DAILY@1999 [facility] Protocol Insulin Human Regular 0 units 12/28/20 00:00 01/02/21 06:00 Insulin Regular, Human 100 Units/1 Ml SUB-Q Not Given Q6H [facility] Protocol Multi-Ingred Cream/Lotion/Oil/Oint 1 applic 12/20/20 21:58 Mineral Oil/Petrolatum, White Ophth Oint 3.5 Gm OU Q4HR PRN Dry Eye(s) Sodium Chloride 10 ml 12/20/20 22:00 01/01/21 22:42 Sodium Chloride 0.9% 10 Ml Flush Syringe IV 10 ml BID ASCENCION Administration Sodium Chloride 10 ml 12/20/20 16:42 Sodium Chloride 0.9% 10 Ml Flush Syringe IV PRN PRN LINE FLUSH
--- NOTE | 2021-01-02 17:13 | Progress Note ---
Assessment and Plan POD#14 s/p ex lap and small bowel resection for necrotic bowel secondary to incarcerated ventral hernia left with open abdomen. POD#11 s/p abdominal exploration with segmental small bowel resection. abthera placement POD#7 s/p abdominal exploration, small bowel resection for ischemia, abthera placement POD#4 s/p abdominal exploration with small bowel anastamosis and abthera vac placement POD#1 s/p abdomen closure with mesh Weaned of pressors. stable Renal failure, continue dialysis per nephrology Respiratory insufficiency, wean to extubation per wheel tuner continue NGT decompression Prognosis is guarded. Subjective Date of service: 01/02/21 Narrative: No acute events overnight. Pt is trying to be weaned to extubation. Objective Vital Signs - 12hr 01/02/21 01/02/21 01/02/21 05:15 05:30 05:45 Temperature Pulse Rate 91 H 90 90 Respiratory Rate Blood Pressure 104/46 89/44 91/44 O2 Sat by Pulse 96 96 Oximetry O2 Sat by Pulse Oximetry [ Anterior Bilateral Throughout] 01/02/21 01/02/21 01/02/21 06:00 06:15 06:30 Temperature Pulse Rate 88 87 89 Respiratory Rate Blood Pressure 113/54 113/50 117/55 O2 Sat by Pulse 97 95 Oximetry O2 Sat by Pulse Oximetry [ Anterior Bilateral Throughout] 01/02/21 01/02/21 01/02/21 06:45 07:00 07:15 Temperature 98.2 F Pulse Rate 90 90 90 Respiratory Rate Blood Pressure 109/51 100/47 104/47 O2 Sat by Pulse 98 96 97 Oximetry O2 Sat by Pulse Oximetry [ Anterior Bilateral Throughout] 01/02/21 01/02/21 01/02/21 07:30 07:45 08:00 Temperature Pulse Rate 90 92 H 91 H Respiratory Rate Blood Pressure 102/46 119/56 106/47 O2 Sat by Pulse 97 98 98 Oximetry O2 Sat by Pulse Oximetry [ Anterior Bilateral Throughout] 01/02/21 01/02/21 01/02/21 08:15 08:30 08:45 Temperature Pulse Rate 94 H 92 H 91 H Respiratory Rate Blood Pressure 124/51 118/49 106/47 O2 Sat by Pulse 97 96 Oximetry O2 Sat by Pulse Oximetry [ Anterior Bilateral Throughout] 01/02/21 01/02/21 01/02/21 09:00 11:37 12:54 Temperature 98.9 F Pulse Rate 91 H 112 H Respiratory Rate Blood Pressure 103/46 147/77 O2 Sat by Pulse 100 96 Oximetry O2 Sat by Pulse Oximetry [ Anterior Bilateral Throughout] 01/02/21 01/02/21 01/02/21 14:14 14:30 14:45 Temperature 98.1 F Pulse Rate 116 H 114 H 115 H Respiratory 23 Rate Blood Pressure 129/68 139/70 133/59 O2 Sat by Pulse Oximetry O2 Sat by Pulse 93 Oximetry [ Anterior Bilateral Throughout] 01/02/21 01/02/21 01/02/21 15:00 15:15 15:30 Temperature Pulse Rate 116 H 114 H 111 H Respiratory Rate Blood Pressure 145/66 122/62 119/53 O2 Sat by Pulse Oximetry O2 Sat by Pulse Oximetry [ Anterior Bilateral Throughout] 01/02/21 01/02/21 01/02/21 15:45 16:00 16:15 Temperature Pulse Rate 107 H 108 H 108 H Respiratory Rate Blood Pressure 111/63 116/52 115/61 O2 Sat by Pulse Oximetry O2 Sat by Pulse Oximetry [ Anterior Bilateral Throughout] 01/02/21 01/02/21 01/02/21 16:19 16:30 16:45 Temperature Pulse Rate 110 H 106 H 104 H Respiratory Rate Blood Pressure 116/52 109/58 109/60 O2 Sat by Pulse 95 Oximetry O2 Sat by Pulse Oximetry [ Anterior Bilateral Throughout] 01/02/21 17:00 Temperature Pulse Rate 98 H Respiratory Rate Blood Pressure 107/54 O2 Sat by Pulse Oximetry O2 Sat by Pulse Oximetry [ Anterior Bilateral Throughout] - General physical appearance well developed, no distress, no pain - Respiratory normal expansion, normal respiratory effort - Abdomen soft, other (appropriately tender to palpation, LAURA drains SS, bandages intact) - Labs 01/02/21 08:00 01/02/21 08:00 Diabetes panel 01/02/21 Range/Units 08:00 Sodium 127 L (137-145) mmol/L Potassium 4.1 (3.6-5.0) mmol/L Chloride 89.3 L (98-107) mmol/L Carbon Dioxide 19 L (22-30) mmol/L BUN 82 H (9-20) mg/dL Creatinine 5.0 H (0.8-1.3) mg/dL Glucose 103 H (75-100) mg/dL Calcium 7.8 L (8.4-10.2) mg/dL AST 47 H (5-40) units/L ALT 26 (7-56) units/L Alkaline Phosphatase 80 (35-129) units/L Total Protein 5.0 L (6.3-8.2) g/dL Albumin 1.6 L (3.9-5) g/dL Calcium panel 01/02/21 Range/Units 08:00 Calcium 7.8 L (8.4-10.2) mg/dL Phosphorus 6.40 H (2.5-4.5) mg/dL Albumin 1.6 L (3.9-5) g/dL Pituitary panel 01/02/21 Range/Units 08:00 Sodium 127 L (137-145) mmol/L Potassium 4.1 (3.6-5.0) mmol/L Chloride 89.3 L (98-107) mmol/L Carbon Dioxide 19 L (22-30) mmol/L BUN 82 H (9-20) mg/dL Creatinine 5.0 H (0.8-1.3) mg/dL Glucose 103 H (75-100) mg/dL Calcium 7.8 L (8.4-10.2) mg/dL Adrenal panel 01/02/21 Range/Units 08:00 Sodium 127 L (137-145) mmol/L Potassium 4.1 (3.6-5.0) mmol/L Chloride 89.3 L (98-107) mmol/L Carbon Dioxide 19 L (22-30) mmol/L BUN 82 H (9-20) mg/dL Creatinine 5.0 H (0.8-1.3) mg/dL Glucose 103 H (75-100) mg/dL Calcium 7.8 L (8.4-10.2) mg/dL Total Bilirubin 0.50 (0.1-1.2) mg/dL AST 47 H (5-40) units/L ALT 26 (7-56) units/L Alkaline Phosphatase 80 (35-129) units/L Total Protein 5.0 L (6.3-8.2) g/dL Albumin 1.6 L (3.9-5) g/dL
[2021-01-02] MEDS ORDERED: TOTAL PARENTERAL NUTRITION 2,400 ML IV SCH (20:00)
[2021-01-03] MEDS: INSULIN REGULAR, HUMAN 100 UNITS/1 ML SUB-Q SCH ×4 (00:29→18:59)
--- NOTE | 2021-01-03 04:26 | Progress Note ---
Assessment and Plan 60 y/o male with abdominal catastrophe, s/p ex-lap with open abdomen, ventilated for pain control and support. 01/03/21: Really need volume off. Vasopressors ordered and can be used to help with volume removal as patient has anasarca. Not sure that we would be able to successfully extubate if volume is not removed. Not ready for SBT as he is still requiring a decent amount of support. Would like PEEP at 6 and FiO2 at 40-45% or lower. Will speak with renal about HD again today for volume removal with pressor support to help with this. Continue TPN until gut ready for use. Absolutely no steroids. Guarded prognosis. Patient may need PRBC's, this could be transfused with HD, may help with volume removal. 01/02/21: Now, will start to wean sedation. Continue to wean FiO2 but do not wean PEEP until FiO2 is down to about 40%. Spoke with renal who will dialyze patient today. electrolyte imbalances will be managed by them as well. Abx therapy per ID. Will continue to follow. Guarded prognosis. 12/30/20: No steroids given new anastomosis. Discussed with surgery. Continue sedation and pain control until abdomen is closed. Appears to have metabolic acidosis and some volume overload so feel he would benefit from HD today, will ask renal about this. Electrolyte imbalances should be managed by HD. Guarded to poor prognosis. 12/29/20: Continue all supportive measures. Maintain adequate sedation and pain control given open abdomen. HD per renal, catheter in place. Wean Pressors for MAPS >65. Prognosis still remains guarded to poor. 12/27/20: Agree with bicarb drip. Will go ahead and place vascath today. Will obtain consent and place, likely in groin. Back on pressors unfortunately but much lower doses. Got 3 doses of steroids on yesterday. May have helped. Will discuss with pharmacy and determine the risk benefit ration of continuing. Continue abx therapy as per ID. overall prognosis is very very guarded to poor. 12/26/20: Needs more hydration. Appreciate renal help but will bolus several liters today as I feel the patient is very volume deplete and with persistent fever we have insensible losses as well. Continue TPN. OR today. Wean pressors for MAPs greater than 65. Follow up triglyceride level. Some hypotension is likely related to amount of sedation required to maintain rass of -4. If third agent is needed, could use precedex, ativan etc..Guarded prognosis. 12/25/20: Down to 14 on Levo now. Fluid appears to have helped. Renal following so will defer further bolus types to them but would recommend more fluid. Continue sedation at current level. TPN for nutrition. Plans for return to OR on Saturday. Continue all supportive measures. 12/24/20: Adequate sedation to maintain RASS of -4. BP support as needed with pressors. Will give more fluid today. Renal function improving. Agree with D5W but Na will be corrected in TPN as well. TPN per nutrition. Supportive care. 1. Adequate sedation to RASS of -4 2 Support BP with meds as needed 3. Aggressive hydration 4. Follow up surgery recs. cct 31 minutes. Subjective Date of service: 01/03/21 Principal diagnosis: SBO and necrosis of large part of small intestine Interval history: Diprovan had to be restarted secondary to tachypnea and patient being awake per night nurse. Also per night nurse, had HD but no volume removed. Currently on 50% and 8 of PEEP, sat 94. Patient eyes open on exam but not following commands as he is on sedation. Making urine. Objective Vital Signs - 12hr 01/02/21 01/02/21 01/02/21 16:30 16:45 17:00 Temperature Pulse Rate 106 H 105 H 104 H Pulse Rate [ From Monitor] Respiratory 28 H 28 H 28 H Rate Blood Pressure 109/58 109/60 107/54 O2 Sat by Pulse 94 96 Oximetry O2 Sat by Pulse Oximetry [ Anterior Bilateral Throughout] 01/02/21 01/02/21 01/02/21 17:15 17:20 17:30 Temperature 98.6 F Pulse Rate 103 H 103 H 100 H Pulse Rate [ From Monitor] Respiratory 28 H 29 H Rate Blood Pressure 114/58 129/57 107/49 O2 Sat by Pulse 95 96 Oximetry O2 Sat by Pulse 93 Oximetry [ Anterior Bilateral Throughout] 01/02/21 01/02/21 01/02/21 17:38 18:00 18:30 Temperature 98.6 F Pulse Rate 99 H 98 H Pulse Rate [ From Monitor] Respiratory 29 H 28 H Rate Blood Pressure 123/55 105/48 O2 Sat by Pulse 95 96 Oximetry O2 Sat by Pulse Oximetry [ Anterior Bilateral Throughout] 01/02/21 01/02/21 01/02/21 19:00 19:30 20:00 Temperature 98.5 F Pulse Rate 99 H 96 H 99 H Pulse Rate [ 99 H From Monitor] Respiratory 28 H 28 H 28 H Rate Blood Pressure 110/55 117/48 113/55 O2 Sat by Pulse 97 97 100 Oximetry O2 Sat by Pulse Oximetry [ Anterior Bilateral Throughout] 01/02/21 01/02/21 01/02/21 20:30 20:35 21:00 Temperature Pulse Rate 97 H 100 H 98 H Pulse Rate [ From Monitor] Respiratory 28 H 28 H Rate Blood Pressure 107/54 107/54 115/53 O2 Sat by Pulse 100 99 96 Oximetry O2 Sat by Pulse Oximetry [ Anterior Bilateral Throughout] 01/02/21 01/02/21 01/02/21 21:30 22:00 22:30 Temperature Pulse Rate 101 H 96 H 98 H Pulse Rate [ From Monitor] Respiratory 29 H 28 H 28 H Rate Blood Pressure 122/55 122/55 112/56 O2 Sat by Pulse 96 98 97 Oximetry O2 Sat by Pulse Oximetry [ Anterior Bilateral Throughout] 01/02/21 01/02/21 01/02/21 22:43 23:00 23:26 Temperature 99.5 F Pulse Rate 100 H 99 H Pulse Rate [ From Monitor] Respiratory 29 H 28 H Rate Blood Pressure 112/56 112/56 O2 Sat by Pulse 98 98 Oximetry O2 Sat by Pulse Oximetry [ Anterior Bilateral Throughout] 01/02/21 01/02/21 01/03/21 23:30 23:46 00:00 Temperature Pulse Rate 98 H 98 H 99 H Pulse Rate [ 99 H From Monitor] Respiratory 28 H 30 H Rate Blood Pressure 112/56 112/56 118/55 O2 Sat by Pulse 98 98 99 Oximetry O2 Sat by Pulse Oximetry [ Anterior Bilateral Throughout] 01/03/21 01/03/21 01/03/21 00:30 01:00 01:30 Temperature Pulse Rate 98 H 97 H 99 H Pulse Rate [ From Monitor] Respiratory 29 H 29 H 28 H Rate Blood Pressure 119/54 124/52 122/52 O2 Sat by Pulse 96 97 98 Oximetry O2 Sat by Pulse Oximetry [ Anterior Bilateral Throughout] 01/03/21 01/03/21 02:00 03:23 Temperature 99.6 F Pulse Rate 97 H Pulse Rate [ From Monitor] Respiratory 29 H Rate Blood Pressure 131/52 O2 Sat by Pulse 97 Oximetry O2 Sat by Pulse Oximetry [ Anterior Bilateral Throughout] Constitutional: other (critically ill on ventilator) Eyes: non-icteric ENT: oropharynx moist Neck: supple Effort: normal Ascultation: Bilateral: other (coarse BS bilaterally) Cardiovascular: other (tachy, RR; no mrg) Gastrointestinal: other (abdomen open) Integumentary: normal Extremities: no cyanosis, no edema, pink and warm Neurologic: other (sedated) CBC and BMP: 01/02/21 08:00 01/02/21 08:00 ABG, PT/INR, D-dimer: ABG ABG pH 7.276 (7.320-7.450) L 01/02/21 03:47 POC ABG pCO2 39.4 mmHg (32.0-48.0) 01/02/21 03:47 ABG pCO2 51.0 mm Hg 12/20/20 21:30 POC ABG pO2 173.6 mmHg (83-108) H 01/02/21 03:47 ABG pO2 104.4 mm Hg (80.0-90.0) H 12/20/20 21:30 POC ABG HCO3 17.9 01/02/21 03:47 ABG O2 Saturation 99.2 (0-100) 01/02/21 03:47 Abnormal lab findings: Abnormal Labs 12/20/20 12/20/20 12/20/20 13:58 13:58 13:58 WBC 41.1 H* RBC 5.59 H Hgb 16.2 H Hct 47.7 H MCHC RDW 15.5 H Plt Count 486 H Seg Neuts % (Manual) Lymphocytes % (Manual) Seg Neutrophils # Man Lymphocytes # (Manual) Monocytes # (Manual) APTT ABG pH POC ABG pCO2 POC ABG pO2 ABG pO2 ABG Hemoglobin ABG Oxyhemoglobin ABG Sodium ABG Potassium ABG Chloride ABG Glucose Carboxyhemoglobin Sodium 130 L Potassium Chloride 80.7 L Carbon Dioxide BUN 37 H Creatinine Glucose 101 H POC Glucose Lactic Acid 3.20 H* Calcium Ionized Calcium Phosphorus Magnesium AST Alkaline Phosphatase 142 H Total Protein 6.2 L Albumin 2.2 L Triglycerides Arterial Blood Glucose Arterial Blood Ionized Calcium Urine Creatinine 12/20/20 12/20/20 12/20/20 13:58 20:35 21:30 WBC RBC Hgb Hct MCHC RDW Plt Count Seg Neuts % (Manual) Lymphocytes % (Manual) Seg Neutrophils # Man Lymphocytes # (Manual) Monocytes # (Manual) APTT 49.4 H ABG pH 7.313 L POC ABG pCO2 POC ABG pO2 ABG pO2 104.4 H ABG Hemoglobin ABG Oxyhemoglobin ABG Sodium ABG Potassium ABG Chloride ABG Glucose Carboxyhemoglobin Sodium Potassium Chloride Carbon Dioxide BUN Creatinine Glucose POC Glucose 122 H Lactic Acid Calcium Ionized Calcium Phosphorus Magnesium AST Alkaline Phosphatase Total Protein Albumin Triglycerides Arterial Blood Glucose Arterial Blood Ionized Calcium Urine Creatinine 12/21/20 12/21/20 12/21/20 03:06 08:14 08:14 WBC 23.9 H RBC Hgb Hct MCHC RDW 15.7 H Plt Count Seg Neuts % (Manual) 91.0 H Lymphocytes % (Manual) 3.0 L Seg Neutrophils # Man 21.7 H Lymphocytes # (Manual) 0.7 L Monocytes # (Manual) 1.4 H APTT ABG pH 7.464 H POC ABG pCO2 POC ABG pO2 202.9 H ABG pO2 ABG Hemoglobin ABG Oxyhemoglobin ABG Sodium 133.7 L ABG Potassium ABG Chloride ABG Glucose 122 H Carboxyhemoglobin Sodium Potassium Chloride Carbon Dioxide BUN 46 H Creatinine Glucose 103 H POC Glucose Lactic Acid Calcium 6.6 L D Ionized Calcium Phosphorus Magnesium AST Alkaline Phosphatase Total Protein 5.4 L Albumin 2.3 L Triglycerides Arterial Blood Glucose 122 H Arterial Blood Ionized Calcium 3.5 L Urine Creatinine 12/21/20 12/21/20 12/22/20 17:18 21:28 04:45 WBC 22.9 H RBC Hgb Hct MCHC RDW 15.7 H Plt Count Seg Neuts % (Manual) Lymphocytes % (Manual) Seg Neutrophils # Man Lymphocytes # (Manual) Monocytes # (Manual) APTT ABG pH POC ABG pCO2 POC ABG pO2 ABG pO2 ABG Hemoglobin ABG Oxyhemoglobin ABG Sodium ABG Potassium ABG Chloride ABG Glucose Carboxyhemoglobin Sodium Potassium Chloride Carbon Dioxide BUN Creatinine Glucose POC Glucose 108 H Lactic Acid Calcium Ionized Calcium 4.1 L Phosphorus Magnesium AST Alkaline Phosphatase Total Protein Albumin Triglycerides Arterial Blood Glucose Arterial Blood Ionized Calcium Urine Creatinine 12/22/20 12/22/20 12/22/20 04:45 05:00 11:38 WBC RBC Hgb Hct MCHC RDW Plt Count Seg Neuts % (Manual) Lymphocytes % (Manual) Seg Neutrophils # Man Lymphocytes # (Manual) Monocytes # (Manual) APTT ABG pH 7.462 H POC ABG pCO2 POC ABG pO2 ABG pO2 ABG Hemoglobin ABG Oxyhemoglobin ABG Sodium ABG Potassium ABG Chloride ABG Glucose 118 H Carboxyhemoglobin Sodium 146 H Potassium Chloride Carbon Dioxide BUN 45 H Creatinine Glucose 116 H POC Glucose 115 H Lactic Acid Calcium 6.9 L Ionized Calcium Phosphorus Magnesium AST Alkaline Phosphatase Total Protein Albumin Triglycerides Arterial Blood Glucose 118 H Arterial Blood Ionized Calcium 3.8 L Urine Creatinine 12/22/20 12/23/20 12/23/20 23:26 04:43 04:45 WBC 22.2 H RBC Hgb Hct MCHC RDW 16.1 H Plt Count Seg Neuts % (Manual) Lymphocytes % (Manual) Seg Neutrophils # Man Lymphocytes # (Manual) Monocytes # (Manual) APTT ABG pH POC ABG pCO2 POC ABG pO2 ABG pO2 ABG Hemoglobin ABG Oxyhemoglobin ABG Sodium 147.4 H ABG Potassium ABG Chloride 112.0 H ABG Glucose 130 H Carboxyhemoglobin 0.4 L Sodium Potassium Chloride Carbon Dioxide BUN Creatinine Glucose POC Glucose 110 H Lactic Acid Calcium Ionized Calcium Phosphorus Magnesium AST Alkaline Phosphatase Total Protein Albumin Triglycerides Arterial Blood Glucose 130 H Arterial Blood Ionized Calcium 3.8 L Urine Creatinine 12/23/20 12/23/20 12/23/20 04:45 05:17 11:22 WBC RBC Hgb Hct MCHC RDW Plt Count Seg Neuts % (Manual) Lymphocytes % (Manual) Seg Neutrophils # Man Lymphocytes # (Manual) Monocytes # (Manual) APTT ABG pH POC ABG pCO2 POC ABG pO2 ABG pO2 ABG Hemoglobin ABG Oxyhemoglobin ABG Sodium ABG Potassium ABG Chloride ABG Glucose Carboxyhemoglobin Sodium 154 H D Potassium Chloride 110.9 H Carbon Dioxide BUN 54 H Creatinine 1.8 H Glucose 115 H POC Glucose 116 H 130 H Lactic Acid Calcium 7.0 L Ionized Calcium Phosphorus Magnesium AST Alkaline Phosphatase Total Protein Albumin Triglycerides Arterial Blood Glucose Arterial Blood Ionized Calcium Urine Creatinine 12/23/20 12/23/20 12/23/20 12:15 12:15 23:15 WBC RBC Hgb Hct MCHC RDW Plt Count Seg Neuts % (Manual) Lymphocytes % (Manual) Seg Neutrophils # Man Lymphocytes # (Manual) Monocytes # (Manual) APTT ABG pH POC ABG pCO2 POC ABG pO2 ABG pO2 ABG Hemoglobin ABG Oxyhemoglobin ABG Sodium ABG Potassium ABG Chloride ABG Glucose Carboxyhemoglobin Sodium 154 H Potassium Chloride Carbon Dioxide BUN Creatinine 1.5 H Glucose POC Glucose 132 H Lactic Acid Calcium Ionized Calcium Phosphorus Magnesium AST Alkaline Phosphatase Total Protein Albumin Triglycerides Arterial Blood Glucose Arterial Blood Ionized Calcium Urine Creatinine 78.1 H 12/24/20 12/24/20 12/24/20 04:19 04:30 04:30 WBC 18.3 H RBC Hgb Hct MCHC RDW 16.5 H Plt Count Seg Neuts % (Manual) Lymphocytes % (Manual) Seg Neutrophils # Man Lymphocytes # (Manual) Monocytes # (Manual) APTT ABG pH POC ABG pCO2 POC ABG pO2 ABG pO2 ABG Hemoglobin ABG Oxyhemoglobin ABG Sodium 149.7 H ABG Potassium ABG Chloride 116.0 H ABG Glucose 180 H Carboxyhemoglobin Sodium 155 H Potassium Chloride 116.1 H Carbon Dioxide BUN 52 H Creatinine 1.5 H Glucose 175 H POC Glucose Lactic Acid Calcium 6.8 L Ionized Calcium Phosphorus Magnesium 3.00 H AST Alkaline Phosphatase Total Protein 5.7 L Albumin 1.8 L Triglycerides Arterial Blood Glucose 180 H Arterial Blood Ionized Calcium 3.7 L Urine Creatinine 12/24/20 12/24/20 12/24/20 05:24 11:21 18:05 WBC RBC Hgb Hct MCHC RDW Plt Count Seg Neuts % (Manual) Lymphocytes % (Manual) Seg Neutrophils # Man Lymphocytes # (Manual) Monocytes # (Manual) APTT ABG pH POC ABG pCO2 POC ABG pO2 ABG pO2 ABG Hemoglobin ABG Oxyhemoglobin ABG Sodium ABG Potassium ABG Chloride ABG Glucose Carboxyhemoglobin Sodium Potassium Chloride Carbon Dioxide BUN Creatinine Glucose POC Glucose 153 H 154 H 133 H Lactic Acid Calcium Ionized Calcium Phosphorus Magnesium AST Alkaline Phosphatase Total Protein Albumin Triglycerides Arterial Blood Glucose Arterial Blood Ionized Calcium Urine Creatinine 12/25/20 12/25/20 12/25/20 04:00 07:00 07:00 WBC 17.6 H RBC Hgb Hct MCHC 31 L RDW 16.0 H Plt Count Seg Neuts % (Manual) Lymphocytes % (Manual) Seg Neutrophils # Man Lymphocytes # (Manual) Monocytes # (Manual) APTT ABG pH POC ABG pCO2 POC ABG pO2 ABG pO2 ABG Hemoglobin ABG Oxyhemoglobin ABG Sodium 152.5 H ABG Potassium ABG Chloride 119.0 H ABG Glucose 136 H Carboxyhemoglobin Sodium Potassium Chloride Carbon Dioxide BUN Creatinine Glucose POC Glucose Lactic Acid Calcium Ionized Calcium Phosphorus Magnesium 2.70 H AST Alkaline Phosphatase Total Protein Albumin Triglycerides Arterial Blood Glucose 136 H Arterial Blood Ionized Calcium 3.7 L Urine Creatinine 12/25/20 12/25/20 12/25/20 07:00 11:24 16:32 WBC RBC Hgb Hct MCHC RDW Plt Count Seg Neuts % (Manual) Lymphocytes % (Manual) Seg Neutrophils # Man Lymphocytes # (Manual) Monocytes # (Manual) APTT ABG pH POC ABG pCO2 POC ABG pO2 ABG pO2 ABG Hemoglobin ABG Oxyhemoglobin ABG Sodium ABG Potassium ABG Chloride ABG Glucose Carboxyhemoglobin Sodium 156 H Potassium Chloride 118.0 H Carbon Dioxide BUN 44 H Creatinine 1.7 H Glucose 126 H POC Glucose 110 H 126 H Lactic Acid Calcium 6.9 L Ionized Calcium Phosphorus Magnesium AST Alkaline Phosphatase Total Protein Albumin Triglycerides Arterial Blood Glucose Arterial Blood Ionized Calcium Urine Creatinine 12/25/20 12/25/20 12/26/20 18:18 23:23 03:30 WBC RBC Hgb Hct MCHC RDW Plt Count Seg Neuts % (Manual) Lymphocytes % (Manual) Seg Neutrophils # Man Lymphocytes # (Manual) Monocytes # (Manual) APTT ABG pH POC ABG pCO2 POC ABG pO2 ABG pO2 ABG Hemoglobin 11.8 L ABG Oxyhemoglobin ABG Sodium ABG Potassium 4.7 H ABG Chloride 114.0 H ABG Glucose 132 H Carboxyhemoglobin Sodium 151 H Potassium Chloride 114.3 H Carbon Dioxide BUN 51 H Creatinine 2.6 H D Glucose 122 H POC Glucose 115 H Lactic Acid Calcium 6.4 L Ionized Calcium Phosphorus Magnesium AST Alkaline Phosphatase Total Protein Albumin Triglycerides Arterial Blood Glucose 132 H Arterial Blood Ionized Calcium 3.6 L Urine Creatinine 12/26/20 12/26/20 12/26/20 04:55 06:01 06:01 WBC 21.6 H RBC Hgb Hct MCHC 31 L RDW 16.5 H Plt Count 136 L Seg Neuts % (Manual) Lymphocytes % (Manual) Seg Neutrophils # Man Lymphocytes # (Manual) Monocytes # (Manual) APTT ABG pH POC ABG pCO2 POC ABG pO2 ABG pO2 ABG Hemoglobin ABG Oxyhemoglobin ABG Sodium ABG Potassium ABG Chloride ABG Glucose Carboxyhemoglobin Sodium 173 H* D Potassium 6.1 H* D Chloride 137.0 H Carbon Dioxide BUN 73 H Creatinine 3.8 H Glucose 125 H POC Glucose 112 H Lactic Acid Calcium 6.2 L Ionized Calcium Phosphorus 5.70 H D Magnesium 2.90 H AST Alkaline Phosphatase Total Protein Albumin Triglycerides Arterial Blood Glucose Arterial Blood Ionized Calcium Urine Creatinine 12/26/20 12/26/20 12/26/20 08:33 11:19 22:00 WBC RBC Hgb Hct MCHC RDW Plt Count Seg Neuts % (Manual) Lymphocytes % (Manual) Seg Neutrophils # Man Lymphocytes # (Manual) Monocytes # (Manual) APTT ABG pH POC ABG pCO2 POC ABG pO2 ABG pO2 ABG Hemoglobin ABG Oxyhemoglobin ABG Sodium ABG Potassium ABG Chloride ABG Glucose Carboxyhemoglobin Sodium 147 H D Potassium 5.8 H D Chloride 108.8 H Carbon Dioxide 21 L BUN 68 H 68 H Creatinine 3.8 H 4.1 H Glucose 144 H 154 H POC Glucose 144 H Lactic Acid Calcium 6.5 L 5.8 L* Ionized Calcium Phosphorus Magnesium AST 215 H Alkaline Phosphatase Total Protein 4.7 L Albumin 1.5 L Triglycerides Arterial Blood Glucose Arterial Blood Ionized Calcium Urine Creatinine 12/26/20 12/26/20 12/27/20 23:13 Unknown 00:25 WBC RBC Hgb 11.1 L Hct MCHC RDW Plt Count Seg Neuts % (Manual) Lymphocytes % (Manual) Seg Neutrophils # Man Lymphocytes # (Manual) Monocytes # (Manual) APTT ABG pH POC ABG pCO2 POC ABG pO2 ABG pO2 ABG Hemoglobin ABG Oxyhemoglobin ABG Sodium ABG Potassium ABG Chloride ABG Glucose Carboxyhemoglobin Sodium Potassium Chloride Carbon Dioxide BUN Creatinine Glucose POC Glucose 163 H Lactic Acid Calcium Ionized Calcium Phosphorus 5.60 H Magnesium AST Alkaline Phosphatase Total Protein Albumin Triglycerides Arterial Blood Glucose Arterial Blood Ionized Calcium Urine Creatinine 12/27/20 12/27/20 12/27/20 02:57 04:15 04:15 WBC 28.5 H RBC Hgb 11.2 L Hct MCHC 31 L RDW 16.5 H Plt Count 130 L Seg Neuts % (Manual) Lymphocytes % (Manual) Seg Neutrophils # Man Lymphocytes # (Manual) Monocytes # (Manual) APTT ABG pH 7.238 L POC ABG pCO2 POC ABG pO2 139.1 H ABG pO2 ABG Hemoglobin 11.2 L ABG Oxyhemoglobin ABG Sodium 133.8 L ABG Potassium 5.2 H ABG Chloride ABG Glucose 182 H Carboxyhemoglobin Sodium 136 L Potassium 6.0 H Chloride Carbon Dioxide 18 L BUN 68 H Creatinine 4.1 H Glucose 166 H POC Glucose Lactic Acid Calcium 6.2 L Ionized Calcium Phosphorus 7.30 H D Magnesium AST Alkaline Phosphatase Total Protein Albumin Triglycerides 164 H Arterial Blood Glucose 182 H Arterial Blood Ionized Calcium 3.4 L Urine Creatinine 12/27/20 12/27/20 12/27/20 04:50 10:51 11:17 WBC RBC Hgb Hct MCHC RDW Plt Count Seg Neuts % (Manual) Lymphocytes % (Manual) Seg Neutrophils # Man Lymphocytes # (Manual) Monocytes # (Manual) APTT ABG pH POC ABG pCO2 POC ABG pO2 ABG pO2 ABG Hemoglobin ABG Oxyhemoglobin ABG Sodium ABG Potassium ABG Chloride ABG Glucose Carboxyhemoglobin Sodium Potassium Chloride Carbon Dioxide BUN Creatinine Glucose POC Glucose 140 H 113 H 154 H Lactic Acid Calcium Ionized Calcium Phosphorus Magnesium AST Alkaline Phosphatase Total Protein Albumin Triglycerides Arterial Blood Glucose Arterial Blood Ionized Calcium Urine Creatinine 12/27/20 12/27/20 12/27/20 12:40 14:40 23:17 WBC RBC Hgb Hct MCHC RDW Plt Count Seg Neuts % (Manual) Lymphocytes % (Manual) Seg Neutrophils # Man Lymphocytes # (Manual) Monocytes # (Manual) APTT ABG pH POC ABG pCO2 POC ABG pO2 ABG pO2 ABG Hemoglobin ABG Oxyhemoglobin ABG Sodium ABG Potassium ABG Chloride ABG Glucose Carboxyhemoglobin Sodium 135 L Potassium Chloride Carbon Dioxide 21 L BUN 62 H Creatinine 3.8 H Glucose 132 H POC Glucose 130 H Lactic Acid Calcium 5.6 L* Ionized Calcium 3.3 L Phosphorus Magnesium AST Alkaline Phosphatase Total Protein Albumin Triglycerides Arterial Blood Glucose Arterial Blood Ionized Calcium Urine Creatinine 12/28/20 12/28/20 12/28/20 05:36 07:08 07:28 WBC 27.2 H RBC 3.50 L Hgb 9.6 L Hct 30.8 L MCHC 31 L RDW 16.1 H Plt Count 111 L Seg Neuts % (Manual) 95.0 H Lymphocytes % (Manual) Seg Neutrophils # Man 25.8 H Lymphocytes # (Manual) 0.0 L Monocytes # (Manual) 1.1 H APTT ABG pH 7.200 L POC ABG pCO2 POC ABG pO2 67.2 L ABG pO2 ABG Hemoglobin 10.3 L ABG Oxyhemoglobin 89.6 L ABG Sodium 127.8 L ABG Potassium 5.1 H ABG Chloride ABG Glucose 132 H Carboxyhemoglobin 0.4 L Sodium Potassium Chloride Carbon Dioxide BUN Creatinine Glucose POC Glucose 128 H Lactic Acid Calcium Ionized Calcium Phosphorus Magnesium AST Alkaline Phosphatase Total Protein Albumin Triglycerides Arterial Blood Glucose 132 H Arterial Blood Ionized Calcium 3.5 L Urine Creatinine 12/28/20 12/28/20 12/28/20 07:28 11:37 13:25 WBC RBC Hgb Hct MCHC RDW Plt Count Seg Neuts % (Manual) Lymphocytes % (Manual) Seg Neutrophils # Man Lymphocytes # (Manual) Monocytes # (Manual) APTT ABG pH POC ABG pCO2 POC ABG pO2 ABG pO2 ABG Hemoglobin ABG Oxyhemoglobin ABG Sodium ABG Potassium ABG Chloride ABG Glucose Carboxyhemoglobin Sodium 131 L 133 L Potassium 5.9 H 5.1 H Chloride 97.1 L Carbon Dioxide 15 L 21 L BUN 70 H 77 H Creatinine 4.0 H 4.4 H Glucose 118 H 140 H POC Glucose 135 H Lactic Acid Calcium 6.3 L 6.3 L Ionized Calcium Phosphorus 7.10 H Magnesium AST 144 H Alkaline Phosphatase Total Protein 4.8 L Albumin 1.3 L Triglycerides Arterial Blood Glucose Arterial Blood Ionized Calcium Urine Creatinine 12/28/20 12/28/20 12/29/20 16:38 23:28 03:08 WBC RBC Hgb Hct MCHC RDW Plt Count Seg Neuts % (Manual) Lymphocytes % (Manual) Seg Neutrophils # Man Lymphocytes # (Manual) Monocytes # (Manual) APTT ABG pH 7.301 L POC ABG pCO2 POC ABG pO2 151.1 H ABG pO2 ABG Hemoglobin 8.7 L ABG Oxyhemoglobin 98.2 H ABG Sodium 123.4 L ABG Potassium ABG Chloride 97.0 L ABG Glucose 144 H Carboxyhemoglobin Sodium Potassium Chloride Carbon Dioxide BUN Creatinine Glucose POC Glucose 140 H 134 H Lactic Acid Calcium Ionized Calcium Phosphorus Magnesium AST Alkaline Phosphatase Total Protein Albumin Triglycerides Arterial Blood Glucose 144 H Arterial Blood Ionized Calcium 3.4 L Urine Creatinine 12/29/20 12/29/20 12/29/20 05:20 05:20 06:01 WBC 21.0 H RBC 2.89 L Hgb 8.1 L Hct 25.5 L MCHC RDW 16.1 H Plt Count 124 L Seg Neuts % (Manual) Lymphocytes % (Manual) Seg Neutrophils # Man Lymphocytes # (Manual) Monocytes # (Manual) APTT ABG pH POC ABG pCO2 POC ABG pO2 ABG pO2 ABG Hemoglobin ABG Oxyhemoglobin ABG Sodium ABG Potassium ABG Chloride ABG Glucose Carboxyhemoglobin Sodium 131 L Potassium Chloride 93.4 L Carbon Dioxide BUN 79 H Creatinine 4.7 H Glucose 122 H POC Glucose 108 H Lactic Acid Calcium 5.5 L* Ionized Calcium Phosphorus 5.70 H Magnesium 1.60 L AST Alkaline Phosphatase Total Protein Albumin Triglycerides Arterial Blood Glucose Arterial Blood Ionized Calcium Urine Creatinine 12/29/20 12/29/20 12/29/20 10:04 11:27 17:31 WBC RBC Hgb Hct MCHC RDW Plt Count Seg Neuts % (Manual) Lymphocytes % (Manual) Seg Neutrophils # Man Lymphocytes # (Manual) Monocytes # (Manual) APTT ABG pH POC ABG pCO2 POC ABG pO2 ABG pO2 ABG Hemoglobin ABG Oxyhemoglobin ABG Sodium ABG Potassium ABG Chloride ABG Glucose Carboxyhemoglobin Sodium Potassium Chloride Carbon Dioxide BUN Creatinine Glucose POC Glucose 107 H 112 H 110 H Lactic Acid Calcium Ionized Calcium Phosphorus Magnesium AST Alkaline Phosphatase Total Protein Albumin Triglycerides Arterial Blood Glucose Arterial Blood Ionized Calcium Urine Creatinine 12/30/20 12/30/20 12/30/20 03:31 08:06 17:39 WBC RBC Hgb Hct MCHC RDW Plt Count Seg Neuts % (Manual) Lymphocytes % (Manual) Seg Neutrophils # Man Lymphocytes # (Manual) Monocytes # (Manual) APTT ABG pH 7.261 L POC ABG pCO2 POC ABG pO2 123.1 H ABG pO2 ABG Hemoglobin 8.7 L ABG Oxyhemoglobin ABG Sodium 123.2 L ABG Potassium ABG Chloride 96.0 L ABG Glucose 112 H Carboxyhemoglobin Sodium 128 L Potassium Chloride 90.7 L Carbon Dioxide 21 L BUN 86 H Creatinine 4.9 H Glucose 107 H POC Glucose 134 H Lactic Acid Calcium 6.2 L Ionized Calcium Phosphorus 5.30 H Magnesium 1.50 L AST Alkaline Phosphatase Total Protein Albumin Triglycerides Arterial Blood Glucose 112 H Arterial Blood Ionized Calcium 3.2 L Urine Creatinine 12/30/20 12/31/20 12/31/20 22:45 02:14 04:40 WBC RBC Hgb Hct MCHC RDW Plt Count Seg Neuts % (Manual) Lymphocytes % (Manual) Seg Neutrophils # Man Lymphocytes # (Manual) Monocytes # (Manual) APTT ABG pH 7.267 L POC ABG pCO2 POC ABG pO2 ABG pO2 ABG Hemoglobin 8.0 L ABG Oxyhemoglobin 93.7 L ABG Sodium ABG Potassium ABG Chloride 95.0 L ABG Glucose 108 H Carboxyhemoglobin 1.7 H Sodium 126 L Potassium Chloride 90.3 L Carbon Dioxide 20 L BUN 70 H Creatinine 4.3 H Glucose 209 H POC Glucose 109 H Lactic Acid Calcium 6.6 L Ionized Calcium Phosphorus 4.70 H Magnesium 1.60 L AST Alkaline Phosphatase Total Protein Albumin Triglycerides 157 H Arterial Blood Glucose 108 H Arterial Blood Ionized Calcium 3.7 L Urine Creatinine 12/31/20 12/31/20 01/01/21 16:23 23:21 04:00 WBC 18.0 H RBC 2.75 L Hgb 7.7 L Hct 23.9 L MCHC RDW 15.6 H Plt Count Seg Neuts % (Manual) 91.0 H Lymphocytes % (Manual) 6.0 L Seg Neutrophils # Man 16.4 H Lymphocytes # (Manual) 1.1 L Monocytes # (Manual) APTT ABG pH 7.264 L POC ABG pCO2 POC ABG pO2 74.8 L ABG pO2 ABG Hemoglobin 7.1 L ABG Oxyhemoglobin 92.1 L ABG Sodium 124.9 L ABG Potassium ABG Chloride 95.0 L ABG Glucose 111 H Carboxyhemoglobin 1.7 H Sodium Potassium Chloride Carbon Dioxide BUN Creatinine Glucose POC Glucose 125 H Lactic Acid Calcium Ionized Calcium Phosphorus Magnesium AST Alkaline Phosphatase Total Protein Albumin Triglycerides Arterial Blood Glucose 111 H Arterial Blood Ionized Calcium 4.0 L Urine Creatinine 01/01/21 01/01/21 01/01/21 05:50 13:41 15:55 WBC RBC Hgb Hct MCHC RDW Plt Count Seg Neuts % (Manual) Lymphocytes % (Manual) Seg Neutrophils # Man Lymphocytes # (Manual) Monocytes # (Manual) APTT ABG pH 7.148 L 7.207 L POC ABG pCO2 53.1 H POC ABG pO2 57.3 L 138.4 H ABG pO2 ABG Hemoglobin 9.0 L 8.3 L ABG Oxyhemoglobin 83.2 L ABG Sodium 126.2 L 124.5 L ABG Potassium ABG Chloride 95.0 L 95.0 L ABG Glucose 96 H 120 H Carboxyhemoglobin Sodium 131 L Potassium Chloride 93.3 L Carbon Dioxide 21 L BUN 67 H Creatinine 4.2 H Glucose POC Glucose Lactic Acid Calcium 7.1 L Ionized Calcium Phosphorus Magnesium AST 60 H Alkaline Phosphatase Total Protein 4.8 L Albumin 1.4 L Triglycerides Arterial Blood Glucose 96 H 120 H Arterial Blood Ionized Calcium 4.1 L 3.9 L Urine Creatinine 01/01/21 01/01/21 01/02/21 17:09 23:24 03:47 WBC RBC Hgb Hct MCHC RDW Plt Count Seg Neuts % (Manual) Lymphocytes % (Manual) Seg Neutrophils # Man Lymphocytes # (Manual) Monocytes # (Manual) APTT ABG pH 7.276 L POC ABG pCO2 POC ABG pO2 173.6 H ABG pO2 ABG Hemoglobin 7 L ABG Oxyhemoglobin ABG Sodium 122.4 L ABG Potassium ABG Chloride 94.0 L ABG Glucose 118 H Carboxyhemoglobin Sodium Potassium Chloride Carbon Dioxide BUN Creatinine Glucose POC Glucose 124 H 119 H Lactic Acid Calcium Ionized Calcium Phosphorus Magnesium AST Alkaline Phosphatase Total Protein Albumin Triglycerides Arterial Blood Glucose 118 H Arterial Blood Ionized Calcium 4.0 L Urine Creatinine 01/02/21 01/02/21 01/02/21 05:33 08:00 08:00 WBC 19.7 H RBC 2.53 L Hgb 7.1 L Hct 22.0 L MCHC RDW 16.4 H Plt Count Seg Neuts % (Manual) Lymphocytes % (Manual) Seg Neutrophils # Man Lymphocytes # (Manual) Monocytes # (Manual) APTT ABG pH POC ABG pCO2 POC ABG pO2 ABG pO2 ABG Hemoglobin ABG Oxyhemoglobin ABG Sodium ABG Potassium ABG Chloride ABG Glucose Carboxyhemoglobin Sodium 127 L Potassium Chloride 89.3 L Carbon Dioxide 19 L BUN 82 H Creatinine 5.0 H Glucose 103 H POC Glucose 107 H Lactic Acid Calcium 7.8 L Ionized Calcium Phosphorus 6.40 H Magnesium AST 47 H Alkaline Phosphatase Total Protein 5.0 L Albumin 1.6 L Triglycerides Arterial Blood Glucose Arterial Blood Ionized Calcium Urine Creatinine 01/02/21 17:25 WBC RBC Hgb Hct MCHC RDW Plt Count Seg Neuts % (Manual) Lymphocytes % (Manual) Seg Neutrophils # Man Lymphocytes # (Manual) Monocytes # (Manual) APTT ABG pH POC ABG pCO2 POC ABG pO2 ABG pO2 ABG Hemoglobin ABG Oxyhemoglobin ABG Sodium ABG Potassium ABG Chloride ABG Glucose Carboxyhemoglobin Sodium Potassium Chloride Carbon Dioxide BUN Creatinine Glucose POC Glucose 116 H Lactic Acid Calcium Ionized Calcium Phosphorus Magnesium AST Alkaline Phosphatase Total Protein Albumin Triglycerides Arterial Blood Glucose Arterial Blood Ionized Calcium Urine Creatinine
[2021-01-03] MEDS: fentaNYL DRIP Premix 2,000 MCG/100 ML BAG IV SCH ×3 (06:19→21:41)
[2021-01-03] MEDS: PIPERACIL/TAZOBACTA 4.5/NS 100 4.5 GM/100 ML VIAL IV SCH ×2 (06:20→18:58)
[2021-01-03] MEDS: FAMOTIDINE 20 MG/2 ML INJ IV SCH (09:03)
[2021-01-03] MEDS: FLUCONAZOLE 200 MG 200 MG/100 ML BAG IV SCH (09:03)
[2021-01-03 09:56] LABS: Hemoglobin 6.2 gm/dl (11.8-15.2); Mean Corpuscular HGB Conc 33 % (32-34); Mean Corpuscular Volume 84 fl (84-94); Platelet Count 359 K/mm3 (140-440); Red Blood Count 2.19 M/mm3 (3.65-5.03); Red Cell Distribution Width 16.1 % (13.2-15.2)
[2021-01-03 10:07] LABS: Hematocrit 18.5 % (35.5-45.6)
[2021-01-03] MEDS ORDERED: SODIUM CHLORIDE 0.9% 100 ML IV PRN (10:21)
[2021-01-03] MEDS ORDERED: SODIUM CHLORIDE 0.9% 500 ML 500 ML IV NR (10:35)
--- NOTE | 2021-01-03 13:34 | Progress Note ---
Assessment and Plan Cultures: 12/20/2020 sputum culture: In process 12/20/2020 blood culture: No growth 12/20/2020 urine culture: Usual skin giorgio A/P: 60-year-old male with obesity, hypertension, tobacco abuse, coronary artery disease, admitted to the hospital on 12/20/2020 with: #Septic shock: Secondary to intra-abdominal source, peritonitis. Patient with necrotic bowel secondary to incarcerated ventral hernia. Status post exploratory laparotomy, extensive adhesiolysis, small bowel resection and peritoneal lavage along with ABThera VAC placement on 12/20/2020, replacement 12/29/2020. Remains on 2x pressors. #JONI: Renally dose antibiotics. #Morbid obesity Recs: -continue renally dosed Zosyn. -continue Fluconazole 200 mg daily -Will continue antibiotics until 5 days post his final surgery pending clinical course, We will continue to follow. Priscilla Marie MD [facility], [place], [facility]ated [facility] ([facility]) O: [phone] F: [phone] Subjective Date of service: 01/03/21 Principal diagnosis: SBO and necrosis of large part of small intestine Interval history: White count 17.7. Afebrile. Remains on the vent. Objective - Exam Narrative Exam: Physical Exam: Constitutional: sedated, intubated, on the vent Head, Ears, Nose: Normocephalic, atraumatic. External ears, nose normal Eyes: Conjunctivae/corneas clear. No icterus. No ptosis. Neck: intubated Oral: intubated Cardiovascular: S1, S2 + Respiratory: AE fair bilaterally and equal GI: Woundvac in place Musculoskeletal: No pedal edema, no cyanosis. Skin: No rash or abscess Hem/Lymphatic: No palpable cervical or supraclavicular nodes. No lymphangitis Psych: no agitation Neurological: sedated, intubated, on the vent, exam limited - Constitutional Vitals: Vital Signs Temp Pulse Resp BP Pulse Ox 98.7 F 95 H 28 H 122/51 98 01/03/21 12:00 01/03/21 12:39 01/03/21 12:00 01/03/21 12:39 01/03/21 12:39 Temperature -Last 24 Hours Temperature 98.7 F Temperature 98.2 F Temperature 99.6 F Temperature 99.5 F Temperature 98.5 F Temperature 98.6 F Temperature 98.6 F Temperature 98.1 F - Labs CBC & Chem 7: 01/03/21 09:47 01/03/21 07:56 Labs: Abnormal lab results 01/02/21 01/03/21 01/03/21 Range/Units 17:25 07:56 09:47 WBC 17.7 H (4.5-11.0) K/mm3 RBC 2.19 L (3.65-5.03) M/mm3 Hgb 6.2 L (11.8-15.2) gm/dl Hct 18.5 L* (35.5-45.6) % RDW 16.1 H (13.2-15.2) % Sodium 130 L (137-145) mmol/L Potassium 3.5 L (3.6-5.0) mmol/L Chloride 90.3 L (98-107) mmol/L BUN 68 H (9-20) mg/dL Creatinine 3.9 H (0.8-1.3) mg/dL Glucose 103 H (75-100) mg/dL POC Glucose 116 H (70-105) mg/dL Calcium 8.0 L (8.4-10.2) mg/dL Phosphorus 4.80 H D (2.5-4.5) mg/dL Crossmatch 01/03/21 Range/Units 11:00 WBC (4.5-11.0) K/mm3 RBC (3.65-5.03) M/mm3 Hgb (11.8-15.2) gm/dl Hct (35.5-45.6) % RDW (13.2-15.2) % Sodium (137-145) mmol/L Potassium (3.6-5.0) mmol/L Chloride (98-107) mmol/L BUN (9-20) mg/dL Creatinine (0.8-1.3) mg/dL Glucose (75-100) mg/dL POC Glucose (70-105) mg/dL Calcium (8.4-10.2) mg/dL Phosphorus (2.5-4.5) mg/dL Crossmatch See Detail
--- NOTE | 2021-01-03 16:12 | Progress Note ---
Assessment and Plan Impression * Acute kidney injury. * Incarcerated hernia with ischemic bowel. Status post bowel resection * Hypernatremia, now with hyponatremia * Sepsis * Respiratory failure, intubated * Hyperkalemia * Metabolic Acidosis, Gap * Hypoalbuminemia * Anemia Recommendations * Started HD 12/30 for worsening renal function, electrolyte abnormalities, and worsening volume * Plan for HD today with UF * Hold IVF * Transfuse for hgb < 7 * TPN per nutrition/primary * Pressors to maintain MAP greater than 65 * Avoid nephrotoxins * Monitor fluid status and electrolytes * Strict I/O * Primary and consult notes reviewed Subjective Date of service: 01/03/21 Principal diagnosis: SBO and necrosis of large part of small intestine Interval history: Remains intubated. Off vasopressors. Receiving blood. Objective - Exam Narrative Exam: General: Sedated. Intubated HEENT: Oral mucosa moist Neck: Supple, no JVD Chest: Intubated, mechanical breath sounds Heart: RRR, S1 and S2, no pericardial rub Abdomen: Open abdomen Extremity: No peripheral cyanosis, edema Neurological: Sedated Dermatology: No skin rash Psych: Unable to assess Musculoskeletal: No joint effusion - Vital Signs Vital signs: Vital Signs - 12hr 01/03/21 01/03/21 01/03/21 04:30 05:00 05:30 Temperature Pulse Rate 104 H 104 H 102 H Pulse Rate [ From Monitor] Respiratory 22 20 18 Rate Blood Pressure 131/59 137/63 131/59 O2 Sat by Pulse 96 96 97 Oximetry O2 Sat by Pulse Oximetry [ Anterior Bilateral Throughout] 01/03/21 01/03/21 01/03/21 05:51 06:00 06:30 Temperature Pulse Rate 98 H 106 H 104 H Pulse Rate [ From Monitor] Respiratory 18 16 Rate Blood Pressure 112/56 144/62 144/62 O2 Sat by Pulse 98 93 97 Oximetry O2 Sat by Pulse Oximetry [ Anterior Bilateral Throughout] 01/03/21 01/03/21 01/03/21 07:00 07:30 07:33 Temperature Pulse Rate 104 H 101 H Pulse Rate [ 106 H From Monitor] Respiratory 12 15 Rate Blood Pressure 139/59 127/52 O2 Sat by Pulse 97 96 95 Oximetry O2 Sat by Pulse Oximetry [ Anterior Bilateral Throughout] 01/03/21 01/03/21 01/03/21 07:39 08:00 08:08 Temperature 98.2 F Pulse Rate 103 H 99 H 101 H Pulse Rate [ From Monitor] Respiratory 22 Rate Blood Pressure 127/52 115/54 O2 Sat by Pulse 98 97 Oximetry O2 Sat by Pulse Oximetry [ Anterior Bilateral Throughout] 01/03/21 01/03/21 01/03/21 08:30 09:00 09:30 Temperature Pulse Rate 98 H 100 H 98 H Pulse Rate [ From Monitor] Respiratory 28 H 25 H 16 Rate Blood Pressure 123/48 124/61 119/53 O2 Sat by Pulse 96 95 99 Oximetry O2 Sat by Pulse Oximetry [ Anterior Bilateral Throughout] 01/03/21 01/03/21 01/03/21 10:00 10:30 11:00 Temperature Pulse Rate 98 H 96 H 96 H Pulse Rate [ From Monitor] Respiratory 28 H 21 0 L Rate Blood Pressure 122/51 122/51 122/51 O2 Sat by Pulse 96 98 95 Oximetry O2 Sat by Pulse Oximetry [ Anterior Bilateral Throughout] 01/03/21 01/03/21 01/03/21 11:30 12:00 12:30 Temperature 98.7 F Pulse Rate 96 H 98 H 96 H Pulse Rate [ 106 H From Monitor] Respiratory 8 L 28 H 28 H Rate Blood Pressure 122/51 118/50 122/51 O2 Sat by Pulse 97 96 97 Oximetry O2 Sat by Pulse Oximetry [ Anterior Bilateral Throughout] 01/03/21 01/03/21 01/03/21 12:39 13:00 13:30 Temperature Pulse Rate 95 H 96 H 95 H Pulse Rate [ From Monitor] Respiratory 19 28 H Rate Blood Pressure 122/51 122/51 122/56 O2 Sat by Pulse 98 98 96 Oximetry O2 Sat by Pulse Oximetry [ Anterior Bilateral Throughout] 01/03/21 01/03/21 01/03/21 14:00 14:45 14:50 Temperature 98.7 F Pulse Rate 92 H 95 H 96 H Pulse Rate [ From Monitor] Respiratory 28 H 22 Rate Blood Pressure 122/56 127/55 127/55 O2 Sat by Pulse 98 Oximetry O2 Sat by Pulse 99 Oximetry [ Anterior Bilateral Throughout] 01/03/21 01/03/21 01/03/21 15:00 15:15 15:30 Temperature Pulse Rate 95 H 101 H 97 H Pulse Rate [ From Monitor] Respiratory Rate Blood Pressure 129/53 125/58 128/55 O2 Sat by Pulse Oximetry O2 Sat by Pulse Oximetry [ Anterior Bilateral Throughout] 01/03/21 01/03/21 01/03/21 15:45 15:54 16:00 Temperature 98.7 F Pulse Rate 101 H 102 H 97 H Pulse Rate [ From Monitor] Respiratory 31 H Rate Blood Pressure 134/56 134/56 117/49 O2 Sat by Pulse 98 Oximetry O2 Sat by Pulse Oximetry [ Anterior Bilateral Throughout] 01/03/21 16:04 Temperature 98.7 F Pulse Rate 95 H Pulse Rate [ From Monitor] Respiratory 28 H Rate Blood Pressure 117/49 O2 Sat by Pulse 98 Oximetry O2 Sat by Pulse Oximetry [ Anterior Bilateral Throughout] - Lab 01/03/21 09:47 01/03/21 07:56 Most recent lab results ABG pH 7.276 (7.320-7.450) L 01/02/21 03:47 ABG pCO2 51.0 mm Hg 12/20/20 21:30 ABG pO2 104.4 mm Hg (80.0-90.0) H 12/20/20 21:30 ABG HCO3 25.3 mmol/L (20.0-26.0) 12/20/20 21:30 ABG O2 Saturation 99.2 (0-100) 01/02/21 03:47 Calcium 8.0 mg/dL (8.4-10.2) L 01/03/21 07:56 Phosphorus 4.80 mg/dL (2.5-4.5) H D 01/03/21 07:56 Magnesium 1.80 mg/dL (1.7-2.3) 01/03/21 07:56 Urine Creatinine 78.1 mg/dL (0.1-20.0) H 12/23/20 12:15 Urine Sodium 13 mmol/L 12/23/20 12:15 Medications & Allergies - Medications Allergies/Adverse Reactions: Allergies Iodinated Contrast Media Adverse Reaction (Verified 09/04/18 14:20) Unknown Home Medications: Home Medications Medication Instructions Recorded Confirmed Last Taken Type Aspirin 81 mg PO DAILY #30 tab.chew 09/08/18 09/12/20 03/31/20 09:28 Rx AtorvaSTATin [Lipitor] 80 mg PO QHS tablet 05/08/19 09/12/20 03/28/20 Rx Albuterol Sulfate [Proventil Hfa] 13.4 gm IH Q6H #1 hfa.aer.ad 04/01/20 09/12/20 Unknown Rx Clopidogrel [Plavix] 75 mg PO DAILY #30 tablet 04/01/20 09/12/20 Unknown Rx Gabapentin 300 mg PO BID@0700,1800 30 Days 04/01/20 09/12/20 Unknown Rx capsule Gabapentin 600 mg PO QHS 30 Days capsule 04/01/20 09/12/20 Unknown Rx Metoprolol [Lopressor TAB] 25 mg PO BID #60 tablet 04/01/20 09/12/20 Unknown Rx Wiggins-3/Dha/Epa/Fish Oil [Wiggins 3 1 each PO BID #60 capsule 04/01/20 09/12/20 Unknown Rx 500 Softgel] Tiotropium [place] [Spiriva] 2 puff IH DAILY #30 cap.w.dev 04/01/20 09/12/20 Unknown Rx Ubidecarenone [Co Q-10] 10 mg PO BID #60 tab 04/01/20 09/12/20 03/29/20 Rx cilostazoL [Pletal] 50 mg PO BID 30 Days tablet 04/01/20 09/12/20 Unknown Rx oxyCODONE /ACETAMINOPHEN [Percocet 2 tab PO Q6H PRN tablet 04/01/20 09/12/20 Unknown Rx 5/325 mg] Phosphorus #1 [K-Phos Neutral] 250 mg PO QID 2 Days #8 tablet 09/14/20 Unknown Rx Active Medications: Generic Name Dose Route Start Last Admin Trade Name Freq PRN Reason Stop Dose Admin Acetaminophen 650 mg 12/21/20 11:51 12/25/20 20:35 Acetaminophen 650 Mg Rect Supp OH 650 mg Q4H PRN Administration TEMP >/=100.4 Bisacodyl 10 mg 12/30/20 11:00 01/03/21 09:03 Bisacodyl 10 Mg Rect Supp OH 10 mg QDAY ASCENCION Administration Dextrose 50 ml 12/24/20 10:49 Dextrose 50% In Water (25gm) 50 Ml Syringe IV Q30MIN PRN Hypoglycemia Protocol Famotidine 20 mg 12/26/20 10:00 01/03/21 09:03 Famotidine 20 Mg/2 Ml Inj IV 20 mg DAILY ASCENCION Administration Fentanyl 50 mcg 12/20/20 21:58 12/21/20 03:46 Fentanyl 100 Mcg/2 Ml Inj IV 50 mcg Q10MIN PRN Administration ANALGESIA Hydrophilic Ointment 1 applic 12/20/20 21:58 Lip Therapy Vaseline TP Q2HR PRN Dry Lips Fentanyl Citrate 2,000 mcg in 100 mls @ 6.01 mls/hr 12/20/20 22:00 01/03/21 14:20 Fentanyl Drip Premix IV 2 mcg/kg/hr TITR ASCENCION 12.02 mls/hr Administration Protocol 1 MCG/KG/HR Propofol 1,000 mg in 100 mls @ 3.606 mls/hr 12/20/20 22:00 01/03/21 11:42 Diprivan 10 Mg/Ml IV 15 mcg/kg/min TITR ASCENCION 10.818 mls/hr Administration Protocol 5 MCG/KG/MIN NORepinephrine/NS 8 MG-250 ML 8 mg in 250 mls @ 3.75 mls/hr 12/21/20 09:00 01/02/21 06:15 Norepinephrine/Ns 8 Mg-250 Ml (Double Conc) IV 0 mcg/min TITRATE ASCENCION 0 mls/hr Titration Protocol 2 MCG/MIN Vasopressin 20 unit/ Sodium 101 mls @ 9.09 mls/hr 12/24/20 09:00 01/02/21 09:49 Chloride IV 0 units/min TITR ASCENCION 0 mls/hr Titration Protocol 0.03 UNITS/MIN Piperacillin Sod/Tazobactam Sod 4.5 gm in 100 mls @ 200 mls/hr 12/26/20 18:00 01/03/21 06:20 Zosyn/Ns 4.5gm/100ml IV 200 mls/hr Q12H ASCENCION Administration Protocol Fluconazole 200 mg in 100 mls @ 100 mls/hr 12/26/20 10:00 01/03/21 09:03 Diflucan IV 100 mls/hr Q24H ASCENCION Administration Protocol Amino Acids/Electrolytes/Dextrose 2,400 mls @ 100 mls/hr 01/02/21 20:00 01/02/21 20:41 Tpn Adult IV 01/03/21 19:59 100 mls/hr DAILY@[email or web address] ASCENCION Administration Protocol Amino Acids/Electrolytes/Dextrose 2,400 mls @ 100 mls/hr 01/03/21 20:00 Tpn Adult IV 01/04/21 19:59 DAILY@[email or web address] ASCENCION Protocol Sodium Chloride 100 mls @ 999 mls/hr 01/03/21 10:21 Nacl 0.9% IV MARILU PRN Hypotension Sodium Chloride 500 mls @ 0 mls/hr 01/03/21 10:35 Nacl 0.9% 500 Ml IV 01/03/21 23:59 ONCE NR As Directed Insulin Human Regular 0 units 12/28/20 00:00 01/03/21 12:14 Insulin Regular, Human 100 Units/1 Ml SUB-Q Not Given Q6H [facility] Protocol Multi-Ingred Cream/Lotion/Oil/Oint 1 applic 12/20/20 21:58 01/03/21 01:13 Mineral Oil/Petrolatum, White Ophth Oint 3.5 Gm OU 1 applic Q4HR PRN Administration Dry Eye(s) Sodium Chloride 10 ml 12/20/20 22:00 01/03/21 09:03 Sodium Chloride 0.9% 10 Ml Flush Syringe IV 10 ml BID ASCENCION Administration Sodium Chloride 10 ml 12/20/20 16:42 Sodium Chloride 0.9% 10 Ml Flush Syringe IV PRN PRN LINE FLUSH
--- NOTE | 2021-01-03 17:01 | Progress Note ---
<LILIYAMARGE SohaReagan - Last Filed: 01/03/21 16:56> Assessment and Plan Assessment and plan: This is a 60-year-old male with obesity, hypertension, nicotine dependence, PVD s/p stent placement on dual antiplatelet therapy, hyperlipidemia, OA, GERD, ventral hernia and small bowel obstruction who was admitted with small bowel obstruction and peritonitis Septic Shock, POA (presented with leukocytosis, tachycardia, tachypnea,febrile and evidence of peritonitis) COVID-19 PUI, ruled out Small bowel obstruction with peritonitis Ventral hernia Leukocytosis Anemia Hyponatremia Hypochloremia Metabolic acidosis Hyperphosphatemia Acute Kidney Injury Obesity Hypertension Nicotine dependence CAD s/p stent placement Hyperlipidemia Osteoarthritis GERD -CCM, surgery, infectious disease, nephrology consulted, appreciate recommen dations -12/20 CT abdomen/pelvis showed high-grade small bowel obstruction related to severe complex ventral abdominal wall hernias, progressed in appearance from prior exam from 09/12/2020 without evidence of pneumonitis or pneumoperitoneum, patchy bibasilar airspace disease concern for atypical infectious process/pneumonitis -12/20 s/p ex lap, extensive lysis of adhesions, small bowel resection (removal of 70 cm necrotic small bowel segment), peritoneal lavage and ABThera abdominal wound VAC placement -12/23 s/p abdominal exploration, small bowel resection, peritoneal lavage, ABThera wound VAC placement -12/26 s/p ex lap, small bowel resection, peritoneal lavage, ABThera wound VAC placement -12/29 s/p ex lap, small bowel resection, small bowel anastomosis and ABThera wound VAC placement -01/01 s/p myocutaneous flap creation, abdominal wall component separation and placement of phasix mesh with surgery yesterday where his abdomen was closed and 2 LAURA drains were placed on either side of his midline between fascia and subcu tissue. -12/30 initiated on HD by nephro -IV abx per ID: Zosyn, fluconazole to continue for 5 days until final surgery -NGT to LIWS -NPO for now, TPN -SSI, Accucheck q6 -s/p Vasopressor support as tolerated -HD per nephro -12/23 Fractional excretion of sodium calculated at 0.16 indicating prerenal state -COVID-19 PCR negative -On mechanical ventilation, wean as tolerated, VAP bundle -Sedated with propofol and analgesia with fentanyl drip -Transfuse for Hbg < 7 -Trend CBC, BMP, Mg, Phos GI/DVT prophylaxis: PPI, SCDs to bilateral lower extremities while in bed, Disposition: ICU The high probability of a clinically significant, sudden or life threatening deterioration of the [multi] system(s) required my full and direct attention, intervention and personal management. The aggregate critical care time was [35] minutes. This time is in addition to time spent performing reported procedures but includes the following: [x] Data Review and interpretation [x] Patient assessment and monitoring of vital signs [x] Documentation [x] Medication orders and management History Interval history: This is a 60-year-old male with obesity, hypertension, nicotine dependence, PVD s/p stent placement on dual antiplatelet therapy, hyperlipidemia, OA, GERD, ventral hernia with SBO who presents to the emergency department on 12/20 with severe, diffuse, worsened with movement, slightly relieved with rest abdominal pain rated at 10/10 with decreased oral intake, nausea and multiple episodes of vomiting. Patient underwent a CT of his abdomen/pelvis and was found to have evidence of small bowel obstruction as well as clinical findings consistent with acute peritonitis. Patient was admitted to the hospital service with acute peritonitis and incarcerated ventral hernia with consults to [facility] and surgery. 12/21: Patient is status post ex lap, extensive lysis of adhesions, small bowel resection, peritoneal lavage and ABThera abdominal wound VAC placement by Dr. Tena and Dr. Brumfield on 12/20 with removal of a 70 cm segment of necrotic small bowel. Patient was intubated and sedated on propofol / 4 at the time of my examination on Assist-control, rate of 24, PEEP of 6, tidal volume of 550 and FiO2 35%. Patient needed to be deeply sedated and there was a became hypotensive. Patient was started on patient for support with Levophed and received bolus of IVF. 12/22: Patient was febrile to 103 and vancomycin and Diflucan were added by [facility] and infectious disease was consulted and they increased Zosyn and stop vanco mycin. Patient was given additional 1 L bolus today for CVP goal of 10-12. At the time of examination patient was on Levophed, propofol and fentanyl CMV tidal volume 500, rate of 24, PEEP of 6 and FiO2 65%. Plan for OR tomorrow 12/23: Patient Cr/BUN noted to be increased and nephrology was consulted. ID decreased the zosyn dose d/r renal function. Urine studies ordered. Holland placed today. LR boluses per [facility], TPN to be started. Fractional excretion of sodium calculated at 0.16 indicating prerenal state 12/24: Patient is status post abdominal exploration, small bowel resection of 4 to 5 cm segment of dusky small bowel, peritoneal lavage and ABThera wound VAC placement on 12/23 with surgery, leukocytosis and renal function is improving, worsening hypernatremia and hyperchloremia. Patient will be started on TPN today. We will place on SSI/Accu-Cheks every every 6 hours. Patient noted to b e nearly maxed on Levophed and vasopressin was ordered. Remains sedated and on MV 12/25: Leukocytosis continues to improve, given Ca Gluconate today, Hypernatremia, Cr and hyperchorlemia slightly worsened today. Patient is sedated with propofol and fentanyl on CMV TV 500, Rate 24, Peep 6, FiO2 50%. He remains on levophed. Possible OR Saturday. 12/26 Patient presented with small bowel obstruction, is status post ex lap, extensive lysis of adhesions, small bowel resection, peritoneal lavage and ABThera abdominal wound VAC placement by Dr. Tena and Dr. Brumfield on 12/20 with removal of a 70 cm segment of necrotic small bowel. Was taken back to OR on 12/23 s/p Abdominal exploration, Small bowel resection, Peritoneal lavage, ABThera wound VAC placement. he is still having fever. Poss going to OR again today. Sepsis managed by ID. He is on Diflucan, Zosyn. He is on Levophed. 6/ s/p ex lap, extensive lysis of adhesions, small bowel resection (removal of 70 cm necrotic small bowel segment), peritoneal lavage and ABThera abdominal wound VAC placement. Still having fever Still on vent 12/28: Patient is orally intubated with AC mode ventilation rate 24, tidal volume 500, FiO2 75% and PEEP of 6. POD#8 s/p ex lap and small bowel resection for necrotic bowel secondary to incarcerated ventral hernia left with open abdomen. POD#5 s/p abdominal exploration with segmental small bowel resection. abthera placement POD#2 s/p abdominal exploration, small bowel resection for ischemia, abthera placement -[facility], surgery, infectious disease, nephrology consulted, appreciate mary jane mmendations -IV abx per ID: Zosyn, fluconazole -NGT to LIWS -NPO for now, TPN -SSI, Accucheck q6 -Vasopressor support with levophed -On mechanical ventilation, wean as tolerated, VAP bundle -Sedated with propofol and analgesia with fentanyl drip -Trend CBC, BMP, Mg, Phos -GI/DVT prophylaxis: PPI, SCDs to bilateral lower extremities while in bed, avoid chemical anticoagulation to cleared by surgery 12/29: Patient underwent abdominal exploration, small bowel resection, small bowel anastomosis and ABThera wound VAC placement this a.m. Patient remains on AC mode ventilation with a rate of 24, tidal volume 500, FiO2 65% and PEEP of 6. Continue antibiotics per ID recommendations. Continue vasopressor support as needed. Continue TPN for nutritional support. 12/30: Patient currently with AC mode ventilation rate of 24, tidal volume 500, FiO2 60% and PEEP of 6. Patient underwent further surgery yesterday with another abdominal exploration, small bowel resection, small bowel anastomosis a nd replacement of the ABThera wound VAC. Patient continues to require vasopressor support with vasopressin and Levophed. Continue TPN for nutrition. Continue propofol and fentanyl for sedation. Continue Zosyn per ID recommendations 12: Patient currently with AC mode ventilation rate of 24, tidal volume 500, FiO2 50% and PEEP of 6. POD#12 s/p ex lap and small bowel resection for necrotic bowel secondary to incarcerated ventral hernia left with open abdomen. POD#9 s/p abdominal exploration with segmental small bowel resection. abthera placement POD#3 s/p abdominal exploration, small bowel resection for ischemia, abthera placement POD#2 s/p abdominal exploration with small bowel anastamosis and abthera vac placement Continue hemodialysis per nephrology recommendations. Surgery plans for abdominal washout and bowel examination on Saturday. If anastamosis looks viable and no other issues, surgery plans to close his abdomen. 01/01: Continue current ventilator settings per pulmonary monitor ABG. Continue antibiotics per ID recommendations. Surgery plans for abdominal washout and sofia l examination. If anastamosis looks viable and no other issues, surgery plans to close his abdomen. Wean pressors to maintain MAP > 65. Continue TPN for nutritional support. Hemodialysis per nephrology recommendations. Prognosis remains guarded. 6/14: At the time my examination patient was only on vasopressin for vasopressor support, sedated on 30 mcg of propofol and 4 mcg of fentanyl. Patient was on CMV tidal volume 500, rate of 12, PEEP of 10 and 50% FiO2. Patient remains on TPN and with NG tube to low intermittent suction. Patient underwent a myocutaneous flap creation, abdominal wall component separation and placement of phasix mesh with surgery yesterday where his abdomen was closed and 2 LAURA drains were placed on either side of his midline between fascia and subcu tissue. Per infectious his antibiotics will continue until 5 days postop from a final surgery. Patient has increasing leukocytosis which are likely reactive to surgery and patient will have hemodialysis today for clearance and volume removal. Patient sedation and mechanical ventilation will be weaned for extu bation. 01/03: Patient H/H is 6.2/18.5 and he is being transfused 2 units PRBC with hemodialysis today. Patient has slight hypokalemia but TPN has been adjusted to address potassium. Patient continues to have hyponatremia, hypochloremia and hyperphosphatemia closely improved. The time my examination patient sedated on fentanyl and propofol and LAURA drainage noted to be more serosanguineous. Patient was on assist control with Tylenol 500, PEEP of 8, rate of 28 and FiO2 40%. Patient remains off vasopressor support. No acute overnight events reported Hospitalist Physical - Constitutional Vitals: Temp Pulse Resp BP Pulse Ox 98.3 F 94 H 28 H 121/50 99 01/03/21 16:34 01/03/21 16:45 01/03/21 16:34 01/03/21 16:45 01/03/21 16:34 General appearance: Present: no acute distress, well-nourished, other (Sedated resting comfortably on ventilator) - EENT Eyes: Present: PERRL ENT: poor dentition - Neck Neck: Present: normal ROM - Respiratory Respiratory effort: normal Respiratory: bilateral: diminished - Cardiovascular Rhythm: regular Heart Sounds: Present: S1 & S2. Absent: systolic murmur, diastolic murmur - Extremities Extremities: no ischemia, pulses intact, pulses symmetrical, normal temperature, normal color Extremity abnormal: edema Peripheral Pulses: within normal limits - Abdominal General gastrointestinal: soft, non-tender, non-distended, absent bowel sounds - Integumentary Integumentary: Present: warm, dry - Psychiatric Psychiatric: other (sedated) - Neurologic Neurologic: moves all extremities - Allied Health Allied health notes reviewed: nursing, RT, social work HEART Score - HEART Score Troponin: Troponin T < 0.010 ng/mL (0.00-0.029) 12/20/20 13:58 Results - Labs CBC & Chem 7: 01/03/21 09:47 01/03/21 07:56 Labs: Laboratory Last Values WBC 17.7 K/mm3 (4.5-11.0) H 01/03/21 09:47 RBC 2.19 M/mm3 (3.65-5.03) L 01/03/21 09:47 Hgb 6.2 gm/dl (11.8-15.2) L 01/03/21 09:47 Hct 18.5 % (35.5-45.6) L* 01/03/21 09:47 MCV 84 fl (84-94) 01/03/21 09:47 MCH 28 pg (28-32) 01/03/21 09:47 MCHC 33 % (32-34) 01/03/21 09:47 RDW 16.1 % (13.2-15.2) H 01/03/21 09:47 Plt Count 359 K/mm3 (140-440) 01/03/21 09:47 Add Manual Diff Complete 12/31/20 16:23 Total Counted 100 12/31/20 16:23 Seg Neutrophils % Game Artist 12/31/20 16:23 Seg Neuts % (Manual) 91.0 % (40.0-70.0) H 12/31/20 16:23 Band Neutrophils % 2.0 % 12/31/20 16:23 Lymphocytes % (Manual) 6.0 % (13.4-35.0) L 12/31/20 16:23 Monocytes % (Manual) 1.0 % (0.0-7.3) 12/31/20 16:23 Nucleated RBC % Not Reportable 12/31/20 16:23 Seg Neutrophils # Man 16.4 K/mm3 (1.8-7.7) H 12/31/20 16:23 Band Neutrophils # 0.4 K/mm3 12/31/20 16:23 Lymphocytes # (Manual) 1.1 K/mm3 (1.2-5.4) L 12/31/20 16:23 Abs React Lymphs (Man) 0.0 K/mm3 12/31/20 16:23 Monocytes # (Manual) 0.2 K/mm3 (0.0-0.8) 12/31/20 16:23 Eosinophils # (Manual) 0.0 K/mm3 (0.0-0.4) 12/31/20 16:23 Basophils # (Manual) 0.0 K/mm3 (0.0-0.1) 12/31/20 16:23 Metamyelocytes # 0.0 K/mm3 12/31/20 16:23 Myelocytes # 0.0 K/mm3 12/31/20 16:23 Promyelocytes # 0.0 K/mm3 12/31/20 16:23 Blast Cells # 0.0 K/mm3 12/31/20 16:23 WBC Morphology Not Reportable 12/31/20 16:23 Hypersegmented Neuts Not Reportable 12/31/20 16:23 Hyposegmented Neuts Not Reportable 12/31/20 16:23 Hypogranular Neuts Not Reportable 12/31/20 16:23 Smudge Cells Not Reportable 12/31/20 16:23 Toxic Granulation Not Reportable 12/31/20 16:23 Toxic Vacuolation Not Reportable 12/31/20 16:23 Dohle Bodies Not Reportable 12/31/20 16:23 Pelger-Huet Anomaly Not Reportable 12/31/20 16:23 Mirian Rods Not Reportable 12/31/20 16:23 Platelet Estimate Consistent w auto 12/31/20 16:23 Clumped Platelets Not Reportable 12/31/20 16:23 Plt Clumps, EDTA Not Reportable 12/31/20 16:23 Large Platelets Not Reportable 12/31/20 16:23 Giant Platelets Not Reportable 12/31/20 16:23 Platelet Satelliting Not Reportable 12/31/20 16:23 Plt Morphology Comment Not Reportable 12/31/20 16:23 RBC Morphology Not Reportable 12/31/20 16:23 Dimorphic RBCs Not Reportable 12/31/20 16:23 Polychromasia Not Reportable 12/31/20 16:23 Hypochromasia Not Reportable 12/31/20 16:23 Poikilocytosis Not Reportable 12/31/20 16:23 Anisocytosis 1+ 06/12/21 16:23 Microcytosis Not Reportable 12/31/20 16:23 Macrocytosis Not Reportable 12/31/20 16:23 Spherocytes Not Reportable 12/31/20 16:23 Pappenheimer Bodies Not Reportable 12/31/20 16:23 Sickle Cells Not Reportable 12/31/20 16:23 Target Cells Not Reportable 12/31/20 16:23 Tear Drop Cells Not Reportable 12/31/20 16:23 Ovalocytes Not Reportable 12/31/20 16:23 Helmet Cells Not Reportable 12/31/20 16:23 [place] Bodies Not Reportable 12/31/20 16:23 [place] Rings Not Reportable 12/31/20 16:23 Jonathan Cells Not Reportable 12/31/20 16:23 Bite Cells Not Reportable 12/31/20 16:23 Crenated Cell Not Reportable 12/31/20 16:23 Elliptocytes Not Reportable 12/31/20 16:23 Acanthocytes (Spur) Not Reportable 12/31/20 16:23 Rouleaux Not Reportable 12/31/20 16:23 Hemoglobin C Crystals Not Reportable 12/31/20 16:23 Schistocytes Not Reportable 12/31/20 16:23 Malaria parasites Not Reportable 12/31/20 16:23 Dylon Bodies Not Reportable 12/31/20 16:23 Hem Pathologist Commnt No 12/31/20 16:23 APTT 49.4 Sec. (24.2-36.6) H 12/20/20 13:58 ABG pH 7.276 (7.320-7.450) L 01/02/21 03:47 POC ABG pCO2 39.4 mmHg (32.0-48.0) 01/02/21 03:47 ABG pCO2 51.0 mm Hg 12/20/20 21:30 POC ABG pO2 173.6 mmHg (83-108) H 01/02/21 03:47 ABG pO2 104.4 mm Hg (80.0-90.0) H 12/20/20 21:30 POC ABG HCO3 17.9 01/02/21 03:47 ABG HCO3 25.3 mmol/L (20.0-26.0) 12/20/20 21:30 ABG O2 Saturation 99.2 (0-100) 01/02/21 03:47 ABG O2 Content 20.3 (0.0-44) 12/20/20 21:30 POC ABG Base Excess -8.2 01/02/21 03:47 ABG Base Excess -1.7 mmol/L (-2.0-3.0) 12/20/20 21:30 ABG Hemoglobin 7 (12.0-17.5) L 01/02/21 03:47 ABG Oxyhemoglobin 97.9 (94-98) 01/02/21 03:47 ABG Carboxyhemoglobin 1.3 % (0.0-5.0) 12/20/20 21:30 ABG Methemoglobin 0.3 (0.0-1.5) 01/02/21 03:47 ABG Sodium 122.4 mmol/L (136.0-145.0) L 01/02/21 03:47 ABG Potassium 4.0 mmol/L (3.40-4.50) 01/02/21 03:47 ABG Chloride 94.0 mmol/L (98-107) L 01/02/21 03:47 ABG Glucose 118 mg/dL (65-95) H 01/02/21 03:47 Oxyhemoglobin 95.2 % (95.0-99.0) 12/20/20 21:30 Carboxyhemoglobin 1 (0.5-1.5) 01/02/21 03:47 FiO2 100 % 12/20/20 21:30 FiO2 % 70 01/02/21 03:47 Sodium 130 mmol/L (137-145) L 01/03/21 07:56 Potassium 3.5 mmol/L (3.6-5.0) L 01/03/21 07:56 Chloride 90.3 mmol/L (98-107) L 01/03/21 07:56 Carbon Dioxide 24 mmol/L (22-30) 01/03/21 07:56 Anion Gap 19 mmol/L 01/03/21 07:56 BUN 68 mg/dL (9-20) H 01/03/21 07:56 Creatinine 3.9 mg/dL (0.8-1.3) H 01/03/21 07:56 Estimated GFR 16 ml/min 01/03/21 07:56 BUN/Creatinine Ratio 17 % 01/03/21 07:56 Glucose 103 mg/dL (75-100) H 01/03/21 07:56 POC Glucose 104 mg/dL (70-105) 01/03/21 11:43 Lactic Acid 1.70 mmol/L (0.7-2.0) 12/20/20 16:20 Calcium 8.0 mg/dL (8.4-10.2) L 01/03/21 07:56 Ionized Calcium 3.3 mg/dL (4.8-5.6) L 12/27/20 14:40 Phosphorus 4.80 mg/dL (2.5-4.5) H D 01/03/21 07:56 Magnesium 1.80 mg/dL (1.7-2.3) 01/03/21 07:56 Total Bilirubin 0.50 mg/dL (0.1-1.2) 01/02/21 08:00 AST 47 units/L (5-40) H 01/02/21 08:00 ALT 26 units/L (7-56) 01/02/21 08:00 Alkaline Phosphatase 80 units/L (35-129) 01/02/21 08:00 Troponin T < 0.010 ng/mL (0.00-0.029) 12/20/20 13:58 Total Protein 5.0 g/dL (6.3-8.2) L 01/02/21 08:00 Albumin 1.6 g/dL (3.9-5) L 01/02/21 08:00 Albumin/Globulin Ratio 0.5 % 01/02/21 08:00 Triglycerides 144 mg/dL (2-149) 01/03/21 07:56 Arterial Blood Glucose 118 mg/dL (65-95) H 01/02/21 03:47 Arterial Blood Ionized Calcium 4.0 mg/dL (4.6-5.3) L 01/02/21 03:47 Urine Color Yellow (Yellow) 12/23/20 12:15 Urine Turbidity Cloudy (Clear) 12/23/20 12:15 Urine pH 5.0 (5.0-7.0) 12/23/20 12:15 Ur Specific [place] 1.019 (1.003-1.030) 12/23/20 12:15 Urine Protein <15 mg/dl mg/dL (Negative) 12/23/20 12:15 Urine Glucose (UA) Neg mg/dL (Negative) 12/23/20 12:15 Urine Ketones Neg mg/dL (Negative) 12/23/20 12:15 Urine Blood Sm (Negative) 12/23/20 12:15 Urine Nitrite Neg (Negative) 12/23/20 12:15 Urine Bilirubin Neg (Negative) 12/23/20 12:15 Urine Urobilinogen < 2.0 mg/dL (<2.0) 12/23/20 12:15 Ur Leukocyte Esterase Neg (Negative) 12/23/20 12:15 Urine WBC (Auto) 5.0 /HPF (0.0-6.0) 12/23/20 12:15 Urine RBC (Auto) 2.0 /HPF (0.0-6.0) 12/23/20 12:15 U Epithel Cells (Auto) < 1.0 /HPF (0-13.0) 12/20/20 Unknown Urine Bacteria (Auto) 1+ /HPF (Negative) 12/23/20 12:15 Triple Phos Crystals 2+ 12/23/20 12:15 Hyaline Casts 19 /LPF 12/20/20 Unknown Urine Mucus Few /HPF 12/23/20 12:15 Urine Eosinophils None seen (None Seen) 12/23/20 12:15 Urine Creatinine 78.1 mg/dL (0.1-20.0) H 12/23/20 12:15 Urine Sodium 13 mmol/L 12/23/20 12:15 Fraction Sodium Excret 0.2 12/23/20 12:15 Random Vancomycin 7.9 ug/mL (0-40.0) 12/23/20 12:15 Coronavirus (PCR) Negative (Negative) 12/21/20 Unknown Hepatitis A IgM Ab Non-reactive (NonReactive) 12/30/20 14:40 Hep Bs Antigen Non-reactive (Negative) 12/30/20 14:40 Hep B Core IgM Ab Non-reactive (NonReactive) 12/30/20 14:40 Hepatitis C Antibody Non-reactive (NonReactive) 12/30/20 14:40 Blood Type A NEGATIVE 01/03/21 11:00 Antibody Screen Negative 01/03/21 11:00 Crossmatch See Detail 01/03/21 11:00 Lawrence/IV: Voiding Method Indwelling Catheter Active Medications - Current Medications Current Medications: Generic Name Dose Route Start Last Admin Trade Name Freq PRN Reason Stop Dose Admin Acetaminophen 650 mg 12/21/20 11:51 12/25/20 20:35 Acetaminophen 650 Mg Rect Supp DC 650 mg Q4H PRN Administration TEMP >/=100.4 Bisacodyl 10 mg 12/30/20 11:00 01/03/21 09:03 Bisacodyl 10 Mg Rect Supp DC 10 mg QDAY ASCENCION Administration Dextrose 50 ml 12/24/20 10:49 Dextrose 50% In Water (25gm) 50 Ml Syringe IV Q30MIN PRN Hypoglycemia Protocol Famotidine 20 mg 12/26/20 10:00 01/03/21 09:03 Famotidine 20 Mg/2 Ml Inj IV 20 mg DAILY ASCENCION Administration Fentanyl 50 mcg 12/20/20 21:58 12/21/20 03:46 Fentanyl 100 Mcg/2 Ml Inj IV 50 mcg Q10MIN PRN Administration ANALGESIA Hydrophilic Ointment 1 applic 12/20/20 21:58 Lip Therapy Vaseline TP Q2HR PRN Dry Lips Fentanyl Citrate 2,000 mcg in 100 mls @ 6.01 mls/hr 12/20/20 22:00 01/03/21 14:20 Fentanyl Drip Premix IV 2 mcg/kg/hr TITR ASCENCION 12.02 mls/hr Administration Protocol 1 MCG/KG/HR Propofol 1,000 mg in 100 mls @ 3.606 mls/hr 12/20/20 22:00 01/03/21 11:42 Diprivan 10 Mg/Ml IV 15 mcg/kg/min TITR ASCENCION 10.818 mls/hr Administration Protocol 5 MCG/KG/MIN NORepinephrine/NS 8 MG-250 ML 8 mg in 250 mls @ 3.75 mls/hr 12/21/20 09:00 01/02/21 06:15 Norepinephrine/Ns 8 Mg-250 Ml (Double Conc) IV 0 mcg/min TITRATE ASCENCION 0 mls/hr Titration Protocol 2 MCG/MIN Vasopressin 20 unit/ Sodium 101 mls @ 9.09 mls/hr 12/24/20 09:00 01/02/21 09:49 Chloride IV 0 units/min TITR ASCENCION 0 mls/hr Titration Protocol 0.03 UNITS/MIN Piperacillin Sod/Tazobactam Sod 4.5 gm in 100 mls @ 200 mls/hr 12/26/20 18:00 01/03/21 06:20 Zosyn/Ns 4.5gm/100ml IV 200 mls/hr Q12H ASCENCION Administration Protocol Fluconazole 200 mg in 100 mls @ 100 mls/hr 12/26/20 10:00 01/03/21 09:03 Diflucan IV 100 mls/hr Q24H ASCENCION Administration Protocol Amino Acids/Electrolytes/Dextrose 2,400 mls @ 100 mls/hr 01/02/21 20:00 01/02/21 20:41 Tpn Adult IV 01/03/21 19:59 100 mls/hr DAILY@[email or web address] [facility] Administration Protocol Amino Acids/Electrolytes/Dextrose 2,400 mls @ 100 mls/hr 01/03/21 20:00 Tpn Adult IV 01/04/21 19:59 DAILY@[email or web address] [facility] Protocol Sodium Chloride 100 mls @ 999 mls/hr 01/03/21 10:21 Nacl 0.9% IV MARILU PRN Hypotension Sodium Chloride 500 mls @ 0 mls/hr 01/03/21 10:35 Nacl 0.9% 500 Ml IV 01/03/21 23:59 ONCE NR As Directed Insulin Human Regular 0 units 12/28/20 00:00 01/03/21 12:14 Insulin Regular, Human 100 Units/1 Ml SUB-Q Not Given Q6H [facility] Protocol Multi-Ingred Cream/Lotion/Oil/Oint 1 applic 12/20/20 21:58 01/03/21 01:13 Mineral Oil/Petrolatum, White Ophth Oint 3.5 Gm OU 1 applic Q4HR PRN Administration Dry Eye(s) Sodium Chloride 10 ml 12/20/20 22:00 01/03/21 09:03 Sodium Chloride 0.9% 10 Ml Flush Syringe IV 10 ml BID ASCENCION Administration Sodium Chloride 10 ml 12/20/20 16:42 Sodium Chloride 0.9% 10 Ml Flush Syringe IV PRN PRN LINE FLUSH Nutrition/Malnutrition Assess - Dietary Evaluation Nutrition/Malnutrition Findings: Nutrition Notes Start: 12/21/20 09:06 Freq: Status: Active Protocol: Document 01/03/21 08:02 PIETRO (Rec: 01/03/21 08:08 PIETRO [email or web address]) Nutrition Notes Initial or Follow up Reassessment Current Diagnosis Acute Kidney Injury,Coronary Artery Disease,Hypertension, Small Bowel Obstruction, Hyperlipidemia Other Pertinent Diagnosis gangrenous small bowel, s/p small bowel ressection, peritonitis Current Diet TPN at 100 ml/hr Labs/Tests Na 130 K 3.5 Phos 4.8 Pertinent Medications Propofol at 10.818 ml/hr Height 6 ft Weight 139.3 kg [place] Body Weight (kg) 80.90 BMI 41.6 Subjective/Other Information Day 11 CPN. Pt had HD yesterday (no fluid removed). Pt continues with anasarca. Will add K to TPN. Percent of energy/protein needs met: 96%/74% Burn Absent Trauma Absent GI Symptoms Other Current % PO Negligible Minimum of two criteria No Fluid Accumulation Mild (non-severe) #2 Nutrition Diagnosis Increased nutrient needs ( specify in comment below) Diagnosis Progress(for reassessment Continues documentation) #1 Nutrition Diagnosis Inadequate oral intake Diagnosis Progress(for reassessment Continues documentation) Is patient on ventilator? Yes Is Patient Ambulatory and/or Out of Bed No REE-([facility]-confined to bed) 2699.196 Kcal/Kg value to use for calculation 15 Approximate Energy Requirements Using 0 kcal/Kg Calculation Used for Recommendations Kcal/kg Additional Notes Pro needs >2g/kg IBW: >162g/ day Fluid needs per MD Nutrition Intervention Change Diet Order: Continue CPN Nutrition Support: CPN at 100 ml/hr: K 30 mEq, Cl/Acetate 75/25 MVI, MTE Osmolality: 1395 Kcal 1,840 Protein (gm) 120 Carbohydrates (gm) 40 Fat (gm) 0 Fluid (mL) 2,400 Fiber (gm) 0 Goal #1 Meet needs as best as possible via CPN Anticipated Discharge Needs: Unable to determine at this time Follow-Up By: 01/04/21 Additional Comments Labs in am: BMP, Mg, Phos <AVTAR MAYO - Last Filed: 01/03/21 17:05> Assessment and Plan Assessment and plan: Patient seen and examined with nurse practitioner, agree with assessment and plan as outlined as above. Continue sedation, wean patient off of vent per critical care recommendations. Currently on TPN, will continue antibiotics. Patient continues to have scrotal edema, hopefully hemodialysis will resolve some of this. Hospitalist Physical - Constitutional Vitals: Temp Pulse Resp BP Pulse Ox 98.5 F 93 H 22 122/53 98 01/03/21 16:49 01/03/21 17:00 01/03/21 16:49 01/03/21 17:00 01/03/21 16:49 HEART Score - HEART Score Troponin: Troponin T < 0.010 ng/mL (0.00-0.029) 12/20/20 13:58 Results - Labs CBC & Chem 7: 01/03/21 09:47 01/03/21 07:56 Labs: Laboratory Last Values WBC 17.7 K/mm3 (4.5-11.0) H 01/03/21 09:47 RBC 2.19 M/mm3 (3.65-5.03) L 01/03/21 09:47 Hgb 6.2 gm/dl (11.8-15.2) L 01/03/21 09:47 Hct 18.5 % (35.5-45.6) L* 01/03/21 09:47 MCV 84 fl (84-94) 01/03/21 09:47 MCH 28 pg (28-32) 01/03/21 09:47 MCHC 33 % (32-34) 01/03/21 09:47 RDW 16.1 % (13.2-15.2) H 01/03/21 09:47 Plt Count 359 K/mm3 (140-440) 01/03/21 09:47 Add Manual Diff Complete 12/31/20 16:23 Total Counted 100 12/31/20 16:23 Seg Neutrophils % Game Artist 12/31/20 16:23 Seg Neuts % (Manual) 91.0 % (40.0-70.0) H 12/31/20 16:23 Band Neutrophils % 2.0 % 12/31/20 16:23 Lymphocytes % (Manual) 6.0 % (13.4-35.0) L 12/31/20 16:23 Monocytes % (Manual) 1.0 % (0.0-7.3) 12/31/20 16:23 Nucleated RBC % Not Reportable 12/31/20 16:23 Seg Neutrophils # Man 16.4 K/mm3 (1.8-7.7) H 12/31/20 16:23 Band Neutrophils # 0.4 K/mm3 12/31/20 16:23 Lymphocytes # (Manual) 1.1 K/mm3 (1.2-5.4) L 12/31/20 16:23 Abs React Lymphs (Man) 0.0 K/mm3 12/31/20 16:23 Monocytes # (Manual) 0.2 K/mm3 (0.0-0.8) 12/31/20 16:23 Eosinophils # (Manual) 0.0 K/mm3 (0.0-0.4) 12/31/20 16:23 Basophils # (Manual) 0.0 K/mm3 (0.0-0.1) 12/31/20 16:23 Metamyelocytes # 0.0 K/mm3 12/31/20 16:23 Myelocytes # 0.0 K/mm3 12/31/20 16:23 Promyelocytes # 0.0 K/mm3 12/31/20 16:23 Blast Cells # 0.0 K/mm3 12/31/20 16:23 WBC Morphology Not Reportable 12/31/20 16:23 Hypersegmented Neuts Not Reportable 12/31/20 16:23 Hyposegmented Neuts Not Reportable 12/31/20 16:23 Hypogranular Neuts Not Reportable 12/31/20 16:23 Smudge Cells Not Reportable 12/31/20 16:23 Toxic Granulation Not Reportable 12/31/20 16:23 Toxic Vacuolation Not Reportable 12/31/20 16:23 Dohle Bodies Not Reportable 12/31/20 16:23 Pelger-Huet Anomaly Not Reportable 12/31/20 16:23 Mirian Rods Not Reportable 12/31/20 16:23 Platelet Estimate Consistent w auto 12/31/20 16:23 Clumped Platelets Not Reportable 12/31/20 16:23 Plt Clumps, EDTA Not Reportable 12/31/20 16:23 Large Platelets Not Reportable 12/31/20 16:23 Giant Platelets Not Reportable 12/31/20 16:23 Platelet Satelliting Not Reportable 12/31/20 16:23 Plt Morphology Comment Not Reportable 12/31/20 16:23 RBC Morphology Not Reportable 12/31/20 16:23 Dimorphic RBCs Not Reportable 12/31/20 16:23 Polychromasia Not Reportable 12/31/20 16:23 Hypochromasia Not Reportable 12/31/20 16:23 Poikilocytosis Not Reportable 12/31/20 16:23 Anisocytosis 1+ 12/31/20 16:23 Microcytosis Not Reportable 12/31/20 16:23 Macrocytosis Not Reportable 12/31/20 16:23 Spherocytes Not Reportable 12/31/20 16:23 Pappenheimer Bodies Not Reportable 12/31/20 16:23 Sickle Cells Not Reportable 12/31/20 16:23 Target Cells Not Reportable 12/31/20 16:23 Tear Drop Cells Not Reportable 12/31/20 16:23 Ovalocytes Not Reportable 12/31/20 16:23 Helmet Cells Not Reportable 12/31/20 16:23 [place] Bodies Not Reportable 12/31/20 16:23 [place] Rings Not Reportable 12/31/20 16:23 [place] Cells Not Reportable 12/31/20 16:23 Bite Cells Not Reportable 12/31/20 16:23 Crenated Cell Not Reportable 12/31/20 16:23 Elliptocytes Not Reportable 12/31/20 16:23 Acanthocytes (Spur) Not Reportable 12/31/20 16:23 Rouleaux Not Reportable 12/31/20 16:23 Hemoglobin C Crystals Not Reportable 12/31/20 16:23 Schistocytes Not Reportable 12/31/20 16:23 Malaria parasites Not Reportable 12/31/20 16:23 Dylon Bodies Not Reportable 12/31/20 16:23 Hem Pathologist Commnt No 12/31/20 16:23 APTT 49.4 Sec. (24.2-36.6) H 12/20/20 13:58 ABG pH 7.276 (7.320-7.450) L 01/02/21 03:47 POC ABG pCO2 39.4 mmHg (32.0-48.0) 01/02/21 03:47 ABG pCO2 51.0 mm Hg 12/20/20 21:30 POC ABG pO2 173.6 mmHg (83-108) H 01/02/21 03:47 ABG pO2 104.4 mm Hg (80.0-90.0) H 12/20/20 21:30 POC ABG HCO3 17.9 01/02/21 03:47 ABG HCO3 25.3 mmol/L (20.0-26.0) 12/20/20 21:30 ABG O2 Saturation 99.2 (0-100) 01/02/21 03:47 ABG O2 Content 20.3 (0.0-44) 12/20/20 21:30 POC ABG Base Excess -8.2 01/02/21 03:47 ABG Base Excess -1.7 mmol/L (-2.0-3.0) 12/20/20 21:30 ABG Hemoglobin 7 (12.0-17.5) L 01/02/21 03:47 ABG Oxyhemoglobin 97.9 (94-98) 01/02/21 03:47 ABG Carboxyhemoglobin 1.3 % (0.0-5.0) 12/20/20 21:30 ABG Methemoglobin 0.3 (0.0-1.5) 01/02/21 03:47 ABG Sodium 122.4 mmol/L (136.0-145.0) L 01/02/21 03:47 ABG Potassium 4.0 mmol/L (3.40-4.50) 01/02/21 03:47 ABG Chloride 94.0 mmol/L (98-107) L 01/02/21 03:47 ABG Glucose 118 mg/dL (65-95) H 01/02/21 03:47 Oxyhemoglobin 95.2 % (95.0-99.0) 12/20/20 21:30 Carboxyhemoglobin 1 (0.5-1.5) 01/02/21 03:47 FiO2 100 % 12/20/20 21:30 FiO2 % 70 01/02/21 03:47 Sodium 130 mmol/L (137-145) L 01/03/21 07:56 Potassium 3.5 mmol/L (3.6-5.0) L 01/03/21 07:56 Chloride 90.3 mmol/L (98-107) L 01/03/21 07:56 Carbon Dioxide 24 mmol/L (22-30) 01/03/21 07:56 Anion Gap 19 mmol/L 01/03/21 07:56 BUN 68 mg/dL (9-20) H 01/03/21 07:56 Creatinine 3.9 mg/dL (0.8-1.3) H 01/03/21 07:56 Estimated GFR 16 ml/min 01/03/21 07:56 BUN/Creatinine Ratio 17 % 01/03/21 07:56 Glucose 103 mg/dL (75-100) H 01/03/21 07:56 POC Glucose 104 mg/dL (70-105) 01/03/21 11:43 Lactic Acid 1.70 mmol/L (0.7-2.0) 12/20/20 16:20 Calcium 8.0 mg/dL (8.4-10.2) L 01/03/21 07:56 Ionized Calcium 3.3 mg/dL (4.8-5.6) L 12/27/20 14:40 Phosphorus 4.80 mg/dL (2.5-4.5) H D 01/03/21 07:56 Magnesium 1.80 mg/dL (1.7-2.3) 01/03/21 07:56 Total Bilirubin 0.50 mg/dL (0.1-1.2) 01/02/21 08:00 AST 47 units/L (5-40) H 01/02/21 08:00 ALT 26 units/L (7-56) 01/02/21 08:00 Alkaline Phosphatase 80 units/L (35-129) 01/02/21 08:00 Troponin T < 0.010 ng/mL (0.00-0.029) 12/20/20 13:58 Total Protein 5.0 g/dL (6.3-8.2) L 01/02/21 08:00 Albumin 1.6 g/dL (3.9-5) L 01/02/21 08:00 Albumin/Globulin Ratio 0.5 % 01/02/21 08:00 Triglycerides 144 mg/dL (2-149) 01/03/21 07:56 Arterial Blood Glucose 118 mg/dL (65-95) H 01/02/21 03:47 Arterial Blood Ionized Calcium 4.0 mg/dL (4.6-5.3) L 01/02/21 03:47 Urine Color Yellow (Yellow) 12/23/20 12:15 Urine Turbidity Cloudy (Clear) 12/23/20 12:15 Urine pH 5.0 (5.0-7.0) 12/23/20 12:15 Ur Specific [place] 1.019 (1.003-1.030) 12/23/20 12:15 Urine Protein <15 mg/dl mg/dL (Negative) 12/23/20 12:15 Urine Glucose (UA) Neg mg/dL (Negative) 12/23/20 12:15 Urine Ketones Neg mg/dL (Negative) 12/23/20 12:15 Urine Blood Sm (Negative) 12/23/20 12:15 Urine Nitrite Neg (Negative) 12/23/20 12:15 Urine Bilirubin Neg (Negative) 12/23/20 12:15 Urine Urobilinogen < 2.0 mg/dL (<2.0) 12/23/20 12:15 Ur Leukocyte Esterase Neg (Negative) 12/23/20 12:15 Urine WBC (Auto) 5.0 /HPF (0.0-6.0) 12/23/20 12:15 Urine RBC (Auto) 2.0 /HPF (0.0-6.0) 12/23/20 12:15 U Epithel Cells (Auto) < 1.0 /HPF (0-13.0) 12/20/20 Unknown Urine Bacteria (Auto) 1+ /HPF (Negative) 12/23/20 12:15 Triple Phos Crystals 2+ 12/23/20 12:15 Hyaline Casts 19 /LPF 12/20/20 Unknown Urine Mucus Few /HPF 12/23/20 12:15 Urine Eosinophils None seen (None Seen) 12/23/20 12:15 Urine Creatinine 78.1 mg/dL (0.1-20.0) H 12/23/20 12:15 Urine Sodium 13 mmol/L 12/23/20 12:15 Fraction Sodium Excret 0.2 12/23/20 12:15 Random Vancomycin 7.9 ug/mL (0-40.0) 12/23/20 12:15 Coronavirus (PCR) Negative (Negative) 12/21/20 Unknown Hepatitis A IgM Ab Non-reactive (NonReactive) 12/30/20 14:40 Hep Bs Antigen Non-reactive (Negative) 12/30/20 14:40 Hep B Core IgM Ab Non-reactive (NonReactive) 12/30/20 14:40 Hepatitis C Antibody Non-reactive (NonReactive) 12/30/20 14:40 Blood Type A NEGATIVE 01/03/21 11:00 Antibody Screen Negative 01/03/21 11:00 Crossmatch See Detail 01/03/21 11:00 Lawrence/IV: Voiding Method Indwelling Catheter Active Medications - Current Medications Current Medications: Generic Name Dose Route Start Last Admin Trade Name Freq PRN Reason Stop Dose Admin Acetaminophen 650 mg 12/21/20 11:51 12/25/20 20:35 Acetaminophen 650 Mg Rect Supp DC 650 mg Q4H PRN Administration TEMP >/=100.4 Bisacodyl 10 mg 12/30/20 11:00 01/03/21 09:03 Bisacodyl 10 Mg Rect Supp DC 10 mg QDAY ASCENCION Administration Dextrose 50 ml 12/24/20 10:49 Dextrose 50% In Water (25gm) 50 Ml Syringe IV Q30MIN PRN Hypoglycemia Protocol Famotidine 20 mg 12/26/20 10:00 01/03/21 09:03 Famotidine 20 Mg/2 Ml Inj IV 20 mg DAILY ASCENCION Administration Fentanyl 50 mcg 12/20/20 21:58 12/21/20 03:46 Fentanyl 100 Mcg/2 Ml Inj IV 50 mcg Q10MIN PRN Administration ANALGESIA Hydrophilic Ointment 1 applic 12/20/20 21:58 Lip Therapy Vaseline TP Q2HR PRN Dry Lips Fentanyl Citrate 2,000 mcg in 100 mls @ 6.01 mls/hr 12/20/20 22:00 01/03/21 14:20 Fentanyl Drip Premix IV 2 mcg/kg/hr TITR ASCENCION 12.02 mls/hr Administration Protocol 1 MCG/KG/HR Propofol 1,000 mg in 100 mls @ 3.606 mls/hr 12/20/20 22:00 01/03/21 11:42 Diprivan 10 Mg/Ml IV 15 mcg/kg/min TITR ASCENCION 10.818 mls/hr Administration Protocol 5 MCG/KG/MIN NORepinephrine/NS 8 MG-250 ML 8 mg in 250 mls @ 3.75 mls/hr 12/21/20 09:00 01/02/21 06:15 Norepinephrine/Ns 8 Mg-250 Ml (Double Conc) IV 0 mcg/min TITRATE ASCENCION 0 mls/hr Titration Protocol 2 MCG/MIN Vasopressin 20 unit/ Sodium 101 mls @ 9.09 mls/hr 12/24/20 09:00 01/02/21 09:49 Chloride IV 0 units/min TITR ASCENCION 0 mls/hr Titration Protocol 0.03 UNITS/MIN Piperacillin Sod/Tazobactam Sod 4.5 gm in 100 mls @ 200 mls/hr 12/26/20 18:00 01/03/21 06:20 Zosyn/Ns 4.5gm/100ml IV 200 mls/hr Q12H ASCENCION Administration Protocol Fluconazole 200 mg in 100 mls @ 100 mls/hr 12/26/20 10:00 01/03/21 09:03 Diflucan IV 100 mls/hr Q24H ASCENCION Administration Protocol Amino Acids/Electrolytes/Dextrose 2,400 mls @ 100 mls/hr 01/02/21 20:00 01/02/21 20:41 Tpn Adult IV 01/03/21 19:59 100 mls/hr DAILY@[email or web address] ASCENCION Administration Protocol Amino Acids/Electrolytes/Dextrose 2,400 mls @ 100 mls/hr 01/03/21 20:00 Tpn Adult IV 01/04/21 19:59 DAILY@1999 [facility] Protocol Sodium Chloride 100 mls @ 999 mls/hr 01/03/21 10:21 Nacl 0.9% IV MARILU PRN Hypotension Sodium Chloride 500 mls @ 0 mls/hr 01/03/21 10:35 Nacl 0.9% 500 Ml IV 01/03/21 23:59 ONCE NR As Directed Insulin Human Regular 0 units 12/28/20 00:00 01/03/21 12:14 Insulin Regular, Human 100 Units/1 Ml SUB-Q Not Given Q6H [facility] Protocol Multi-Ingred Cream/Lotion/Oil/Oint 1 applic 12/20/20 21:58 01/03/21 01:13 Mineral Oil/Petrolatum, White Ophth Oint 3.5 Gm OU 1 applic Q4HR PRN Administration Dry Eye(s) Sodium Chloride 10 ml 12/20/20 22:00 01/03/21 09:03 Sodium Chloride 0.9% 10 Ml Flush Syringe IV 10 ml BID ASCENCION Administration Sodium Chloride 10 ml 12/20/20 16:42 Sodium Chloride 0.9% 10 Ml Flush Syringe IV PRN PRN LINE FLUSH Nutrition/Malnutrition Assess - Dietary Evaluation Nutrition/Malnutrition Findings: Nutrition Notes Start: 12/21/20 09:06 Freq: Status: Active Protocol: Document 01/03/21 08:02 PIETRO (Rec: 01/03/21 08:08 PIETRO [id number]) Nutrition Notes Initial or Follow up Reassessment Current Diagnosis Acute Kidney Injury,Coronary Artery Disease,Hypertension, Small Bowel Obstruction, Hyperlipidemia Other Pertinent Diagnosis gangrenous small bowel, s/p small bowel ressection, peritonitis Current Diet TPN at 100 ml/hr Labs/Tests Na 130 K 3.5 Phos 4.8 Pertinent Medications Propofol at 10.818 ml/hr Height 6 ft Weight 139.3 kg [place] Body Weight (kg) 80.90 BMI 41.6 Subjective/Other Information Day 11 CPN. Pt had HD yesterday (no fluid removed). Pt continues with anasarca. Will add K to TPN. Percent of energy/protein needs met: 96%/74% Burn Absent Trauma Absent GI Symptoms Other Current % PO Negligible Minimum of two criteria No Fluid Accumulation Mild (non-severe) #2 Nutrition Diagnosis Increased nutrient needs ( specify in comment below) Diagnosis Progress(for reassessment Continues documentation) #1 Nutrition Diagnosis Inadequate oral intake Diagnosis Progress(for reassessment Continues documentation) Is patient on ventilator? Yes Is Patient Ambulatory and/or Out of Bed No REE-([facility]-confined to bed) 2699.196 Kcal/Kg value to use for calculation 15 Approximate Energy Requirements Using 2090 kcal/Kg Calculation Used for Recommendations Kcal/kg Additional Notes Pro needs >2g/kg IBW: >162g/ day Fluid needs per MD Nutrition Intervention Change Diet Order: Continue CPN Nutrition Support: CPN at 100 ml/hr: K 30 mEq, Cl/Acetate 75/25 MVI, MTE Osmolality: 1395 Kcal 1,840 Protein (gm) 120 Carbohydrates (gm) 40 Fat (gm) 0 Fluid (mL) 2,400 Fiber (gm) 0 Goal #1 Meet needs as best as possible via CPN Anticipated Discharge Needs: Unable to determine at this time Follow-Up By: 01/04/21 Additional Comments Labs in am: BMP, Mg, Phos
[2021-01-03 19:22] LABS: Hematocrit 21.5 % (35.5-45.6); Hemoglobin 7.1 gm/dl (11.8-15.2); Mean Corpuscular HGB Conc 33 % (32-34); Mean Corpuscular Volume 86 fl (84-94); Platelet Count 350 K/mm3 (140-440); Red Blood Count 2.51 M/mm3 (3.65-5.03); Red Cell Distribution Width 16.6 % (13.2-15.2)
[2021-01-03] MEDS ORDERED: TOTAL PARENTERAL NUTRITION 2,400 ML IV SCH (20:00)
--- NOTE | 2021-01-03 20:43 | Progress Note ---
Assessment and Plan POD#15 s/p ex lap and small bowel resection for necrotic bowel secondary to incarcerated ventral hernia left with open abdomen. POD#12 s/p abdominal exploration with segmental small bowel resection. abthera placement POD#8 s/p abdominal exploration, small bowel resection for ischemia, abthera placement POD#5 s/p abdominal exploration with small bowel anastamosis and abthera vac placement POD#5 s/p abdomen closure with mesh Weaned of pressors. 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 will follow up transfusion H/H. Prognosis is guarded. Subjective Date of service: 01/03/21 Narrative: No acute events overnight. Patient was on dialysis at the time of evaluation and is due to get 1 to 2 units of PRBC. Was unable to wean patient off the ventilator yesterday. Objective Vital Signs - 12hr 01/03/21 01/03/21 01/03/21 09:00 09:30 10:00 Temperature Pulse Rate 100 H 98 H 98 H Pulse Rate [ From Monitor] Respiratory 25 H 16 28 H Rate Blood Pressure 124/61 119/53 122/51 O2 Sat by Pulse 95 99 96 Oximetry O2 Sat by Pulse Oximetry [ Anterior Bilateral Throughout] 01/03/21 01/03/21 01/03/21 10:30 11:00 11:30 Temperature Pulse Rate 96 H 96 H 96 H Pulse Rate [ From Monitor] Respiratory 21 0 L 8 L Rate Blood Pressure 122/51 122/51 122/51 O2 Sat by Pulse 98 95 97 Oximetry O2 Sat by Pulse Oximetry [ Anterior Bilateral Throughout] 01/03/21 01/03/21 01/03/21 12:00 12:30 12:39 Temperature 98.7 F Pulse Rate 98 H 96 H 95 H Pulse Rate [ 106 H From Monitor] Respiratory 28 H 28 H Rate Blood Pressure 118/50 122/51 122/51 O2 Sat by Pulse 96 97 98 Oximetry O2 Sat by Pulse Oximetry [ Anterior Bilateral Throughout] 01/03/21 01/03/21 01/03/21 13:00 13:30 14:00 Temperature Pulse Rate 96 H 95 H 92 H Pulse Rate [ From Monitor] Respiratory 19 28 H 28 H Rate Blood Pressure 122/51 122/56 122/56 O2 Sat by Pulse 98 96 98 Oximetry O2 Sat by Pulse Oximetry [ Anterior Bilateral Throughout] 01/03/21 01/03/21 01/03/21 14:30 14:45 14:50 Temperature 98.7 F Pulse Rate 95 H 95 H 96 H Pulse Rate [ From Monitor] Respiratory 28 H 22 Rate Blood Pressure 132/63 127/55 127/55 O2 Sat by Pulse 98 Oximetry O2 Sat by Pulse 99 Oximetry [ Anterior Bilateral Throughout] 01/03/21 01/03/21 01/03/21 15:00 15:15 15:30 Temperature Pulse Rate 93 H 101 H 98 H Pulse Rate [ From Monitor] Respiratory 29 H 18 Rate Blood Pressure 127/55 125/58 131/61 O2 Sat by Pulse 98 99 Oximetry O2 Sat by Pulse Oximetry [ Anterior Bilateral Throughout] 01/03/21 01/03/21 01/03/21 15:45 15:54 16:00 Temperature 98.7 F 98.5 F Pulse Rate 101 H 102 H 98 H Pulse Rate [ 106 H From Monitor] Respiratory 31 H 28 H Rate Blood Pressure 134/56 134/56 134/56 O2 Sat by Pulse 98 98 Oximetry O2 Sat by Pulse Oximetry [ Anterior Bilateral Throughout] 01/03/21 01/03/21 01/03/21 16:04 16:09 16:15 Temperature 98.7 F 98.8 F Pulse Rate 95 H 97 H 96 H Pulse Rate [ From Monitor] Respiratory 28 H 29 H Rate Blood Pressure 117/49 122/52 122/52 O2 Sat by Pulse 98 98 Oximetry O2 Sat by Pulse Oximetry [ Anterior Bilateral Throughout] 01/03/21 01/03/21 01/03/21 16:30 16:31 16:34 Temperature 98.3 F 98.3 F Pulse Rate 96 H 95 H 95 H Pulse Rate [ From Monitor] Respiratory 25 H 28 H 28 H Rate Blood Pressure 116/53 116/53 121/50 O2 Sat by Pulse 96 95 99 Oximetry O2 Sat by Pulse Oximetry [ Anterior Bilateral Throughout] 01/03/21 01/03/21 01/03/21 16:45 16:49 17:00 Temperature 98.5 F Pulse Rate 94 H 95 H 95 H Pulse Rate [ From Monitor] Respiratory 22 29 H Rate Blood Pressure 121/50 122/53 122/53 O2 Sat by Pulse 98 96 Oximetry O2 Sat by Pulse Oximetry [ Anterior Bilateral Throughout] 01/03/21 01/03/21 01/03/21 17:07 17:15 17:30 Temperature 98.3 F Pulse Rate 96 H 93 H 97 H Pulse Rate [ From Monitor] Respiratory 28 H 31 H Rate Blood Pressure 122/53 125/54 130/60 O2 Sat by Pulse 98 98 94 Oximetry O2 Sat by Pulse Oximetry [ Anterior Bilateral Throughout] 01/03/21 01/03/21 01/03/21 17:45 17:50 18:00 Temperature Pulse Rate 95 H 95 H 96 H Pulse Rate [ From Monitor] Respiratory 28 H Rate Blood Pressure 130/56 125/52 130/60 O2 Sat by Pulse 97 Oximetry O2 Sat by Pulse Oximetry [ Anterior Bilateral Throughout] 01/03/21 01/03/21 01/03/21 18:03 18:30 19:00 Temperature 98.5 F Pulse Rate 95 H 94 H 95 H Pulse Rate [ From Monitor] Respiratory 29 H 28 H 28 H Rate Blood Pressure 125/52 125/52 125/52 O2 Sat by Pulse 95 97 Oximetry O2 Sat by Pulse 98 Oximetry [ Anterior Bilateral Throughout] 01/03/21 01/03/21 19:30 20:00 Temperature 98.5 F Pulse Rate 96 H 97 H Pulse Rate [ 97 H From Monitor] Respiratory 28 H 28 H Rate Blood Pressure 130/57 130/55 O2 Sat by Pulse 95 95 Oximetry O2 Sat by Pulse Oximetry [ Anterior Bilateral Throughout] - General physical appearance well developed, no distress, no pain, obese - Respiratory normal expansion, normal respiratory effort, other (intubated on vent) - Abdomen soft, other (incision c/d/i, LAURA drains SS) - Labs 01/03/21 19:00 01/03/21 07:56 Diabetes panel 01/03/21 01/03/21 Range/Units 07:56 07:56 Sodium 130 L (137-145) mmol/L Potassium 3.5 L (3.6-5.0) mmol/L Chloride 90.3 L (98-107) mmol/L Carbon Dioxide 24 (22-30) mmol/L BUN 68 H (9-20) mg/dL Creatinine 3.9 H (0.8-1.3) mg/dL Glucose 103 H (75-100) mg/dL Calcium 8.0 L (8.4-10.2) mg/dL Triglycerides 144 (2-149) mg/dL Calcium panel 01/03/21 Range/Units 07:56 Calcium 8.0 L (8.4-10.2) mg/dL Phosphorus 4.80 H D (2.5-4.5) mg/dL Pituitary panel 01/03/21 Range/Units 07:56 Sodium 130 L (137-145) mmol/L Potassium 3.5 L (3.6-5.0) mmol/L Chloride 90.3 L (98-107) mmol/L Carbon Dioxide 24 (22-30) mmol/L BUN 68 H (9-20) mg/dL Creatinine 3.9 H (0.8-1.3) mg/dL Glucose 103 H (75-100) mg/dL Calcium 8.0 L (8.4-10.2) mg/dL Adrenal panel 01/03/21 Range/Units 07:56 Sodium 130 L (137-145) mmol/L Potassium 3.5 L (3.6-5.0) mmol/L Chloride 90.3 L (98-107) mmol/L Carbon Dioxide 24 (22-30) mmol/L BUN 68 H (9-20) mg/dL Creatinine 3.9 H (0.8-1.3) mg/dL Glucose 103 H (75-100) mg/dL Calcium 8.0 L (8.4-10.2) mg/dL
[2021-01-04] MEDS: INSULIN REGULAR, HUMAN 100 UNITS/1 ML SUB-Q SCH ×4 (00:57→18:20)
[2021-01-04] MEDS: fentaNYL DRIP Premix 2,000 MCG/100 ML BAG IV SCH ×4 (06:12→23:56)
[2021-01-04] MEDS: PIPERACIL/TAZOBACTA 4.5/NS 100 4.5 GM/100 ML VIAL IV SCH ×2 (06:13→18:20)
[2021-01-04 07:00] LABS: Hematocrit 21.9 % (35.5-45.6); Hemoglobin 7.4 gm/dl (11.8-15.2); Mean Corpuscular HGB Conc 34 % (32-34); Mean Corpuscular Volume 87 fl (84-94); Platelet Count 345 K/mm3 (140-440); Red Blood Count 2.53 M/mm3 (3.65-5.03); Red Cell Distribution Width 15.8 % (13.2-15.2)
[2021-01-04 07:17] LABS: Calcium 7.6 mg/dL (8.4-10.2)
--- NOTE | 2021-01-04 10:13 | Progress Note ---
Assessment and Plan POD#16 s/p ex lap and small bowel resection for necrotic bowel secondary to incarcerated ventral hernia left with open abdomen. POD#13 s/p abdominal exploration with segmental small bowel resection. abthera placement POD#10 s/p abdominal exploration, small bowel resection for ischemia, abthera placement POD#7 s/p abdominal exploration with small bowel anastamosis and abthera vac placement POD#3 s/p abdomen closure with mesh Weaned of pressors. stable Renal failure, continue dialysis per nephrology Respiratory insufficiency, wean to extubation per ocular care aide continue NGT decompression Anemia likely due to illness and procedural losses. stable H/H. No signs of active bleeding Prognosis is guarded. Subjective Date of service: 01/04/21 Narrative: no acute events overnight. Currently off propofol for weaning trial from vent. Had a bowel movement. Objective Vital Signs - 12hr 01/03/21 01/03/21 01/03/21 22:30 23:00 23:30 Temperature Pulse Rate 97 H 97 H 97 H Pulse Rate [ From Monitor] Respiratory 28 H 24 29 H Rate Blood Pressure 128/51 126/57 126/51 O2 Sat by Pulse 95 95 98 Oximetry 01/04/21 01/04/21 01/04/21 00:00 00:30 00:42 Temperature 98.8 F Pulse Rate 96 H 98 H 96 H Pulse Rate [ 96 H From Monitor] Respiratory 28 H 29 H Rate Blood Pressure 127/52 132/55 132/55 O2 Sat by Pulse 98 96 98 Oximetry 01/04/21 01/04/21 01/04/21 01:00 01:30 02:00 Temperature Pulse Rate 96 H 96 H 94 H Pulse Rate [ From Monitor] Respiratory 29 H 29 H 28 H Rate Blood Pressure 126/55 124/51 121/48 O2 Sat by Pulse 95 96 97 Oximetry 01/04/21 01/04/21 01/04/21 02:30 03:00 03:23 Temperature 98.3 F Pulse Rate 94 H 99 H Pulse Rate [ From Monitor] Respiratory 28 H 19 Rate Blood Pressure 128/50 141/64 O2 Sat by Pulse 98 100 Oximetry 01/04/21 01/04/21 01/04/21 03:30 03:42 04:00 Temperature Pulse Rate 96 H 101 H 102 H Pulse Rate [ 102 H From Monitor] Respiratory 16 23 Rate Blood Pressure 132/52 141/61 148/66 O2 Sat by Pulse 97 91 88 Oximetry 01/04/21 01/04/21 01/04/21 04:30 05:00 05:30 Temperature Pulse Rate 113 H 108 H 107 H Pulse Rate [ From Monitor] Respiratory 36 H 27 H 26 H Rate Blood Pressure 156/69 143/75 153/66 O2 Sat by Pulse 90 92 94 Oximetry 01/04/21 01/04/21 01/04/21 06:08 06:30 07:00 Temperature Pulse Rate 100 H 99 H 99 H Pulse Rate [ From Monitor] Respiratory 15 17 25 H Rate Blood Pressure 137/60 135/60 O2 Sat by Pulse 96 95 94 Oximetry 01/04/21 01/04/21 07:30 08:00 Temperature Pulse Rate 101 H 97 H Pulse Rate [ From Monitor] Respiratory 20 28 H Rate Blood Pressure 144/71 132/54 O2 Sat by Pulse 97 95 Oximetry - General physical appearance well developed, well nourished, no distress, no pain - Respiratory normal expansion, normal respiratory effort, other (intubated on vent) - Abdomen soft, not tender, other (staple line intact. no drainage. LAURA drains SS) - Genitourinary other (significant scrotal edema) - Labs 01/04/21 06:20 01/04/21 06:20 Diabetes panel 01/04/21 Range/Units 06:20 Sodium 135 L (137-145) mmol/L Potassium 3.6 (3.6-5.0) mmol/L Chloride 95.2 L (98-107) mmol/L Carbon Dioxide 27 (22-30) mmol/L BUN 56 H (9-20) mg/dL Creatinine 3.2 H (0.8-1.3) mg/dL Glucose 109 H (75-100) mg/dL Calcium 7.6 L (8.4-10.2) mg/dL Calcium panel 01/04/21 Range/Units 06:20 Calcium 7.6 L (8.4-10.2) mg/dL Phosphorus 3.60 D (2.5-4.5) mg/dL Pituitary panel 01/04/21 Range/Units 06:20 Sodium 135 L (137-145) mmol/L Potassium 3.6 (3.6-5.0) mmol/L Chloride 95.2 L (98-107) mmol/L Carbon Dioxide 27 (22-30) mmol/L BUN 56 H (9-20) mg/dL Creatinine 3.2 H (0.8-1.3) mg/dL Glucose 109 H (75-100) mg/dL Calcium 7.6 L (8.4-10.2) mg/dL Adrenal panel 01/04/21 Range/Units 06:20 Sodium 135 L (137-145) mmol/L Potassium 3.6 (3.6-5.0) mmol/L Chloride 95.2 L (98-107) mmol/L Carbon Dioxide 27 (22-30) mmol/L BUN 56 H (9-20) mg/dL Creatinine 3.2 H (0.8-1.3) mg/dL Glucose 109 H (75-100) mg/dL Calcium 7.6 L (8.4-10.2) mg/dL
[2021-01-04] MEDS: FLUCONAZOLE 200 MG 200 MG/100 ML BAG IV SCH (10:58)
[2021-01-04] MEDS: FAMOTIDINE 20 MG/2 ML INJ IV SCH (10:58)
--- NOTE | 2021-01-04 11:21 | Progress Note ---
Assessment and Plan 60 y/o male with abdominal catastrophe, s/p ex-lap with open abdomen, ventilated for pain control and support. 01/04/21: HD per renal. Will try PRecedex therapy to see if we can wean off some sedation. Told RT ok to start weaning PEEP. spoke with surgery. Will clamp NG tube and check residuals, if low, will start tube feeding. Guarded prognosis. NO steroids for anything. 01/03/21: Really need volume off. Vasopressors ordered and can be used to help with volume removal as patient has anasarca. Not sure that we would be able to successfully extubate if volume is not removed. Not ready for SBT as he is still requiring a decent amount of support. Would like PEEP at 6 and FiO2 at 40-45% or lower. Will speak with renal about HD again today for volume removal with pressor support to help with this. Continue TPN until gut ready for use. Absolutely no steroids. Guarded prognosis. Patient may need PRBC's, this could be transfused with HD, may help with volume removal. 01/02/21: Now, will start to wean sedation. Continue to wean FiO2 but do not wean PEEP until FiO2 is down to about 40%. Spoke with renal who will dialyze patient today. electrolyte imbalances will be managed by them as well. Abx therapy per ID. Will continue to follow. Guarded prognosis. 12/30/20: No steroids given new anastomosis. Discussed with surgery. Continue sedation and pain control until abdomen is closed. Appears to have metabolic acidosis and some volume overload so feel he would benefit from HD today, will ask renal about this. Electrolyte imbalances should be managed by HD. Guarded to poor prognosis. 12/29/20: Continue all supportive measures. Maintain adequate sedation and pain control given open abdomen. HD per renal, catheter in place. Wean Pressors for MAPS >65. Prognosis still remains guarded to poor. 12/27/20: Agree with bicarb drip. Will go ahead and place vascath today. Will obtain consent and place, likely in groin. Back on pressors unfortunately but much lower doses. Got 3 doses of steroids on yesterday. May have helped. Will discuss with pharmacy and determine the risk benefit ration of continuing. Continue abx therapy as per ID. overall prognosis is very very guarded to poor. 12/26/20: Needs more hydration. Appreciate renal help but will bolus several l iters today as I feel the patient is very volume deplete and with persistent fever we have insensible losses as well. Continue TPN. OR today. Wean pressors for MAPs greater than 65. Follow up triglyceride level. Some hypotension is likely related to amount of sedation required to maintain rass of -4. If third agent is needed, could use precedex, ativan etc..Guarded prognosis. 12/25/20: Down to 14 on Levo now. Fluid appears to have helped. Renal following so will defer further bolus types to them but would recommend more fluid. Continue sedation at current level. TPN for nutrition. Plans for return to OR on Saturday. Continue all supportive measures. 12/24/20: Adequate sedation to maintain RASS of -4. BP support as needed with pressors. Will give more fluid today. Renal function improving. Agree with D5W but Na will be corrected in TPN as well. TPN per nutrition. Supportive care. 1. Adequate sedation to RASS of -4 2 Support BP with meds as needed 3. Aggressive hydration 4. Follow up surgery recs. cct 31 minutes. Subjective Date of service: 01/04/21 Principal diagnosis: SBO and necrosis of large part of small intestine Interval history: Not tolerating weaning of sedations. Becomes very tachypnic, tachycardic and hypertensive. Down to 40% and 8 of PEEP. Still making urine. HD on yesterday with blood transfusion. Objective Vital Signs - 12hr 01/03/21 01/04/21 01/04/21 23:30 00:00 00:30 Temperature 98.8 F Pulse Rate 97 H 96 H 98 H Pulse Rate [ 96 H From Monitor] Respiratory 29 H 28 H 29 H Rate Blood Pressure 126/51 127/52 132/55 O2 Sat by Pulse 98 98 96 Oximetry 01/04/21 01/04/21 01/04/21 00:42 01:00 01:30 Temperature Pulse Rate 96 H 96 H 96 H Pulse Rate [ From Monitor] Respiratory 29 H 29 H Rate Blood Pressure 132/55 126/55 124/51 O2 Sat by Pulse 98 95 96 Oximetry 01/04/21 01/04/21 01/04/21 02:00 02:30 03:00 Temperature Pulse Rate 94 H 94 H 99 H Pulse Rate [ From Monitor] Respiratory 28 H 28 H 19 Rate Blood Pressure 121/48 128/50 141/64 O2 Sat by Pulse 97 98 100 Oximetry 01/04/21 01/04/21 01/04/21 03:23 03:30 03:42 Temperature 98.3 F Pulse Rate 96 H 101 H Pulse Rate [ From Monitor] Respiratory 16 Rate Blood Pressure 132/52 141/61 O2 Sat by Pulse 97 91 Oximetry 01/04/21 01/04/21 01/04/21 04:00 04:30 05:00 Temperature Pulse Rate 102 H 113 H 108 H Pulse Rate [ 102 H From Monitor] Respiratory 23 36 H 27 H Rate Blood Pressure 148/66 156/69 143/75 O2 Sat by Pulse 88 90 92 Oximetry 01/04/21 01/04/21 01/04/21 05:30 06:08 06:30 Temperature Pulse Rate 107 H 100 H 99 H Pulse Rate [ From Monitor] Respiratory 26 H 15 17 Rate Blood Pressure 153/66 137/60 O2 Sat by Pulse 94 96 95 Oximetry 01/04/21 01/04/21 01/04/21 07:00 07:30 08:00 Temperature Pulse Rate 99 H 101 H 97 H Pulse Rate [ From Monitor] Respiratory 25 H 20 28 H Rate Blood Pressure 135/60 144/71 132/54 O2 Sat by Pulse 94 97 95 Oximetry Constitutional: other (critically ill on ventilator) Eyes: non-icteric ENT: oropharynx moist Neck: supple Effort: normal Ascultation: Bilateral: other (coarse BS bilaterally) Cardiovascular: other (tachy, RR; no mrg) Gastrointestinal: other (abdomen open) Integumentary: normal Extremities: no cyanosis, no edema, pink and warm Neurologic: other (sedated) CBC and BMP: 01/04/21 06:20 01/04/21 06:20 ABG, PT/INR, D-dimer: ABG ABG pH 7.463 (7.320-7.450) H 01/04/21 03:12 POC ABG pCO2 33.1 mmHg (32.0-48.0) 01/04/21 03:12 ABG pCO2 51.0 mm Hg 12/20/20 21:30 POC ABG pO2 62.6 mmHg (83-108) L 01/04/21 03:12 ABG pO2 104.4 mm Hg (80.0-90.0) H 12/20/20 21:30 POC ABG HCO3 23.2 01/04/21 03:12 ABG O2 Saturation 93.4 (0-100) 01/04/21 03:12 Abnormal lab findings: Abnormal Labs 12/20/20 12/20/20 12/20/20 13:58 13:58 13:58 WBC 41.1 H* RBC 5.59 H Hgb 16.2 H Hct 47.7 H MCHC RDW 15.5 H Plt Count 486 H Seg Neuts % (Manual) Lymphocytes % (Manual) Seg Neutrophils # Man Lymphocytes # (Manual) Monocytes # (Manual) APTT ABG pH POC ABG pCO2 POC ABG pO2 ABG pO2 ABG Hemoglobin ABG Oxyhemoglobin ABG Sodium ABG Potassium ABG Chloride ABG Glucose Carboxyhemoglobin Sodium 130 L Potassium Chloride 80.7 L Carbon Dioxide BUN 37 H Creatinine Glucose 101 H POC Glucose Lactic Acid 3.20 H* Calcium Ionized Calcium Phosphorus Magnesium AST Alkaline Phosphatase 142 H Total Protein 6.2 L Albumin 2.2 L Triglycerides Arterial Blood Glucose Arterial Blood Ionized Calcium Urine Creatinine Crossmatch 12/20/20 12/20/20 12/20/20 13:58 20:35 21:30 WBC RBC Hgb Hct MCHC RDW Plt Count Seg Neuts % (Manual) Lymphocytes % (Manual) Seg Neutrophils # Man Lymphocytes # (Manual) Monocytes # (Manual) APTT 49.4 H ABG pH 7.313 L POC ABG pCO2 POC ABG pO2 ABG pO2 104.4 H ABG Hemoglobin ABG Oxyhemoglobin ABG Sodium ABG Potassium ABG Chloride ABG Glucose Carboxyhemoglobin Sodium Potassium Chloride Carbon Dioxide BUN Creatinine Glucose POC Glucose 122 H Lactic Acid Calcium Ionized Calcium Phosphorus Magnesium AST Alkaline Phosphatase Total Protein Albumin Triglycerides Arterial Blood Glucose Arterial Blood Ionized Calcium Urine Creatinine Crossmatch 12/21/20 12/21/20 12/21/20 03:06 08:14 08:14 WBC 23.9 H RBC Hgb Hct MCHC RDW 15.7 H Plt Count Seg Neuts % (Manual) 91.0 H Lymphocytes % (Manual) 3.0 L Seg Neutrophils # Man 21.7 H Lymphocytes # (Manual) 0.7 L Monocytes # (Manual) 1.4 H APTT ABG pH 7.464 H POC ABG pCO2 POC ABG pO2 202.9 H ABG pO2 ABG Hemoglobin ABG Oxyhemoglobin ABG Sodium 133.7 L ABG Potassium ABG Chloride ABG Glucose 122 H Carboxyhemoglobin Sodium Potassium Chloride Carbon Dioxide BUN 46 H Creatinine Glucose 103 H POC Glucose Lactic Acid Calcium 6.6 L D Ionized Calcium Phosphorus Magnesium AST Alkaline Phosphatase Total Protein 5.4 L Albumin 2.3 L Triglycerides Arterial Blood Glucose 122 H Arterial Blood Ionized Calcium 3.5 L Urine Creatinine Crossmatch 12/21/20 12/21/20 12/22/20 17:18 21:28 04:45 WBC 22.9 H RBC Hgb Hct MCHC RDW 15.7 H Plt Count Seg Neuts % (Manual) Lymphocytes % (Manual) Seg Neutrophils # Man Lymphocytes # (Manual) Monocytes # (Manual) APTT ABG pH POC ABG pCO2 POC ABG pO2 ABG pO2 ABG Hemoglobin ABG Oxyhemoglobin ABG Sodium ABG Potassium ABG Chloride ABG Glucose Carboxyhemoglobin Sodium Potassium Chloride Carbon Dioxide BUN Creatinine Glucose POC Glucose 108 H Lactic Acid Calcium Ionized Calcium 4.1 L Phosphorus Magnesium AST Alkaline Phosphatase Total Protein Albumin Triglycerides Arterial Blood Glucose Arterial Blood Ionized Calcium Urine Creatinine Crossmatch 12/22/20 12/22/20 12/22/20 04:45 05:00 11:38 WBC RBC Hgb Hct MCHC RDW Plt Count Seg Neuts % (Manual) Lymphocytes % (Manual) Seg Neutrophils # Man Lymphocytes # (Manual) Monocytes # (Manual) APTT ABG pH 7.462 H POC ABG pCO2 POC ABG pO2 ABG pO2 ABG Hemoglobin ABG Oxyhemoglobin ABG Sodium ABG Potassium ABG Chloride ABG Glucose 118 H Carboxyhemoglobin Sodium 146 H Potassium Chloride Carbon Dioxide BUN 45 H Creatinine Glucose 116 H POC Glucose 115 H Lactic Acid Calcium 6.9 L Ionized Calcium Phosphorus Magnesium AST Alkaline Phosphatase Total Protein Albumin Triglycerides Arterial Blood Glucose 118 H Arterial Blood Ionized Calcium 3.8 L Urine Creatinine Crossmatch 12/22/20 12/23/20 12/23/20 23:26 04:43 04:45 WBC 22.2 H RBC Hgb Hct MCHC RDW 16.1 H Plt Count Seg Neuts % (Manual) Lymphocytes % (Manual) Seg Neutrophils # Man Lymphocytes # (Manual) Monocytes # (Manual) APTT ABG pH POC ABG pCO2 POC ABG pO2 ABG pO2 ABG Hemoglobin ABG Oxyhemoglobin ABG Sodium 147.4 H ABG Potassium ABG Chloride 112.0 H ABG Glucose 130 H Carboxyhemoglobin 0.4 L Sodium Potassium Chloride Carbon Dioxide BUN Creatinine Glucose POC Glucose 110 H Lactic Acid Calcium Ionized Calcium Phosphorus Magnesium AST Alkaline Phosphatase Total Protein Albumin Triglycerides Arterial Blood Glucose 130 H Arterial Blood Ionized Calcium 3.8 L Urine Creatinine Crossmatch 12/23/20 12/23/20 12/23/20 04:45 05:17 11:22 WBC RBC Hgb Hct MCHC RDW Plt Count Seg Neuts % (Manual) Lymphocytes % (Manual) Seg Neutrophils # Man Lymphocytes # (Manual) Monocytes # (Manual) APTT ABG pH POC ABG pCO2 POC ABG pO2 ABG pO2 ABG Hemoglobin ABG Oxyhemoglobin ABG Sodium ABG Potassium ABG Chloride ABG Glucose Carboxyhemoglobin Sodium 154 H D Potassium Chloride 110.9 H Carbon Dioxide BUN 54 H Creatinine 1.8 H Glucose 115 H POC Glucose 116 H 130 H Lactic Acid Calcium 7.0 L Ionized Calcium Phosphorus Magnesium AST Alkaline Phosphatase Total Protein Albumin Triglycerides Arterial Blood Glucose Arterial Blood Ionized Calcium Urine Creatinine Crossmatch 12/23/20 12/23/20 12/23/20 12:15 12:15 23:15 WBC RBC Hgb Hct MCHC RDW Plt Count Seg Neuts % (Manual) Lymphocytes % (Manual) Seg Neutrophils # Man Lymphocytes # (Manual) Monocytes # (Manual) APTT ABG pH POC ABG pCO2 POC ABG pO2 ABG pO2 ABG Hemoglobin ABG Oxyhemoglobin ABG Sodium ABG Potassium ABG Chloride ABG Glucose Carboxyhemoglobin Sodium 154 H Potassium Chloride Carbon Dioxide BUN Creatinine 1.5 H Glucose POC Glucose 132 H Lactic Acid Calcium Ionized Calcium Phosphorus Magnesium AST Alkaline Phosphatase Total Protein Albumin Triglycerides Arterial Blood Glucose Arterial Blood Ionized Calcium Urine Creatinine 78.1 H Crossmatch 12/24/20 12/24/20 12/24/20 04:19 04:30 04:30 WBC 18.3 H RBC Hgb Hct MCHC RDW 16.5 H Plt Count Seg Neuts % (Manual) Lymphocytes % (Manual) Seg Neutrophils # Man Lymphocytes # (Manual) Monocytes # (Manual) APTT ABG pH POC ABG pCO2 POC ABG pO2 ABG pO2 ABG Hemoglobin ABG Oxyhemoglobin ABG Sodium 149.7 H ABG Potassium ABG Chloride 116.0 H ABG Glucose 180 H Carboxyhemoglobin Sodium 155 H Potassium Chloride 116.1 H Carbon Dioxide BUN 52 H Creatinine 1.5 H Glucose 175 H POC Glucose Lactic Acid Calcium 6.8 L Ionized Calcium Phosphorus Magnesium 3.00 H AST Alkaline Phosphatase Total Protein 5.7 L Albumin 1.8 L Triglycerides Arterial Blood Glucose 180 H Arterial Blood Ionized Calcium 3.7 L Urine Creatinine Crossmatch 12/24/20 12/24/20 12/24/20 05:24 11:21 18:05 WBC RBC Hgb Hct MCHC RDW Plt Count Seg Neuts % (Manual) Lymphocytes % (Manual) Seg Neutrophils # Man Lymphocytes # (Manual) Monocytes # (Manual) APTT ABG pH POC ABG pCO2 POC ABG pO2 ABG pO2 ABG Hemoglobin ABG Oxyhemoglobin ABG Sodium ABG Potassium ABG Chloride ABG Glucose Carboxyhemoglobin Sodium Potassium Chloride Carbon Dioxide BUN Creatinine Glucose POC Glucose 153 H 154 H 133 H Lactic Acid Calcium Ionized Calcium Phosphorus Magnesium AST Alkaline Phosphatase Total Protein Albumin Triglycerides Arterial Blood Glucose Arterial Blood Ionized Calcium Urine Creatinine Crossmatch 12/25/20 12/25/20 12/25/20 04:00 07:00 07:00 WBC 17.6 H RBC Hgb Hct MCHC 31 L RDW 16.0 H Plt Count Seg Neuts % (Manual) Lymphocytes % (Manual) Seg Neutrophils # Man Lymphocytes # (Manual) Monocytes # (Manual) APTT ABG pH POC ABG pCO2 POC ABG pO2 ABG pO2 ABG Hemoglobin ABG Oxyhemoglobin ABG Sodium 152.5 H ABG Potassium ABG Chloride 119.0 H ABG Glucose 136 H Carboxyhemoglobin Sodium Potassium Chloride Carbon Dioxide BUN Creatinine Glucose POC Glucose Lactic Acid Calcium Ionized Calcium Phosphorus Magnesium 2.70 H AST Alkaline Phosphatase Total Protein Albumin Triglycerides Arterial Blood Glucose 136 H Arterial Blood Ionized Calcium 3.7 L Urine Creatinine Crossmatch 12/25/20 12/25/20 12/25/20 07:00 11:24 16:32 WBC RBC Hgb Hct MCHC RDW Plt Count Seg Neuts % (Manual) Lymphocytes % (Manual) Seg Neutrophils # Man Lymphocytes # (Manual) Monocytes # (Manual) APTT ABG pH POC ABG pCO2 POC ABG pO2 ABG pO2 ABG Hemoglobin ABG Oxyhemoglobin ABG Sodium ABG Potassium ABG Chloride ABG Glucose Carboxyhemoglobin Sodium 156 H Potassium Chloride 118.0 H Carbon Dioxide BUN 44 H Creatinine 1.7 H Glucose 126 H POC Glucose 110 H 126 H Lactic Acid Calcium 6.9 L Ionized Calcium Phosphorus Magnesium AST Alkaline Phosphatase Total Protein Albumin Triglycerides Arterial Blood Glucose Arterial Blood Ionized Calcium Urine Creatinine Crossmatch 12/25/20 12/25/20 12/26/20 18:18 23:23 03:30 WBC RBC Hgb Hct MCHC RDW Plt Count Seg Neuts % (Manual) Lymphocytes % (Manual) Seg Neutrophils # Man Lymphocytes # (Manual) Monocytes # (Manual) APTT ABG pH POC ABG pCO2 POC ABG pO2 ABG pO2 ABG Hemoglobin 11.8 L ABG Oxyhemoglobin ABG Sodium ABG Potassium 4.7 H ABG Chloride 114.0 H ABG Glucose 132 H Carboxyhemoglobin Sodium 151 H Potassium Chloride 114.3 H Carbon Dioxide BUN 51 H Creatinine 2.6 H D Glucose 122 H POC Glucose 115 H Lactic Acid Calcium 6.4 L Ionized Calcium Phosphorus Magnesium AST Alkaline Phosphatase Total Protein Albumin Triglycerides Arterial Blood Glucose 132 H Arterial Blood Ionized Calcium 3.6 L Urine Creatinine Crossmatch 12/26/20 12/26/20 12/26/20 04:55 06:01 06:01 WBC 21.6 H RBC Hgb Hct MCHC 31 L RDW 16.5 H Plt Count 136 L Seg Neuts % (Manual) Lymphocytes % (Manual) Seg Neutrophils # Man Lymphocytes # (Manual) Monocytes # (Manual) APTT ABG pH POC ABG pCO2 POC ABG pO2 ABG pO2 ABG Hemoglobin ABG Oxyhemoglobin ABG Sodium ABG Potassium ABG Chloride ABG Glucose Carboxyhemoglobin Sodium 173 H* D Potassium 6.1 H* D Chloride 137.0 H Carbon Dioxide BUN 73 H Creatinine 3.8 H Glucose 125 H POC Glucose 112 H Lactic Acid Calcium 6.2 L Ionized Calcium Phosphorus 5.70 H D Magnesium 2.90 H AST Alkaline Phosphatase Total Protein Albumin Triglycerides Arterial Blood Glucose Arterial Blood Ionized Calcium Urine Creatinine Crossmatch 12/26/20 12/26/20 12/26/20 08:33 11:19 22:00 WBC RBC Hgb Hct MCHC RDW Plt Count Seg Neuts % (Manual) Lymphocytes % (Manual) Seg Neutrophils # Man Lymphocytes # (Manual) Monocytes # (Manual) APTT ABG pH POC ABG pCO2 POC ABG pO2 ABG pO2 ABG Hemoglobin ABG Oxyhemoglobin ABG Sodium ABG Potassium ABG Chloride ABG Glucose Carboxyhemoglobin Sodium 147 H D Potassium 5.8 H D Chloride 108.8 H Carbon Dioxide 21 L BUN 68 H 68 H Creatinine 3.8 H 4.1 H Glucose 144 H 154 H POC Glucose 144 H Lactic Acid Calcium 6.5 L 5.8 L* Ionized Calcium Phosphorus Magnesium AST 215 H Alkaline Phosphatase Total Protein 4.7 L Albumin 1.5 L Triglycerides Arterial Blood Glucose Arterial Blood Ionized Calcium Urine Creatinine Crossmatch 12/26/20 12/26/20 12/27/20 23:13 Unknown 00:25 WBC RBC Hgb 11.1 L Hct MCHC RDW Plt Count Seg Neuts % (Manual) Lymphocytes % (Manual) Seg Neutrophils # Man Lymphocytes # (Manual) Monocytes # (Manual) APTT ABG pH POC ABG pCO2 POC ABG pO2 ABG pO2 ABG Hemoglobin ABG Oxyhemoglobin ABG Sodium ABG Potassium ABG Chloride ABG Glucose Carboxyhemoglobin Sodium Potassium Chloride Carbon Dioxide BUN Creatinine Glucose POC Glucose 163 H Lactic Acid Calcium Ionized Calcium Phosphorus 5.60 H Magnesium AST Alkaline Phosphatase Total Protein Albumin Triglycerides Arterial Blood Glucose Arterial Blood Ionized Calcium Urine Creatinine Crossmatch 12/27/20 12/27/20 12/27/20 02:57 04:15 04:15 WBC 28.5 H RBC Hgb 11.2 L Hct MCHC 31 L RDW 16.5 H Plt Count 130 L Seg Neuts % (Manual) Lymphocytes % (Manual) Seg Neutrophils # Man Lymphocytes # (Manual) Monocytes # (Manual) APTT ABG pH 7.238 L POC ABG pCO2 POC ABG pO2 139.1 H ABG pO2 ABG Hemoglobin 11.2 L ABG Oxyhemoglobin ABG Sodium 133.8 L ABG Potassium 5.2 H ABG Chloride ABG Glucose 182 H Carboxyhemoglobin Sodium 136 L Potassium 6.0 H Chloride Carbon Dioxide 18 L BUN 68 H Creatinine 4.1 H Glucose 166 H POC Glucose Lactic Acid Calcium 6.2 L Ionized Calcium Phosphorus 7.30 H D Magnesium AST Alkaline Phosphatase Total Protein Albumin Triglycerides 164 H Arterial Blood Glucose 182 H Arterial Blood Ionized Calcium 3.4 L Urine Creatinine Crossmatch 12/27/20 12/27/20 12/27/20 04:50 10:51 11:17 WBC RBC Hgb Hct MCHC RDW Plt Count Seg Neuts % (Manual) Lymphocytes % (Manual) Seg Neutrophils # Man Lymphocytes # (Manual) Monocytes # (Manual) APTT ABG pH POC ABG pCO2 POC ABG pO2 ABG pO2 ABG Hemoglobin ABG Oxyhemoglobin ABG Sodium ABG Potassium ABG Chloride ABG Glucose Carboxyhemoglobin Sodium Potassium Chloride Carbon Dioxide BUN Creatinine Glucose POC Glucose 140 H 113 H 154 H Lactic Acid Calcium Ionized Calcium Phosphorus Magnesium AST Alkaline Phosphatase Total Protein Albumin Triglycerides Arterial Blood Glucose Arterial Blood Ionized Calcium Urine Creatinine Crossmatch 12/27/20 12/27/20 12/27/20 12:40 14:40 23:17 WBC RBC Hgb Hct MCHC RDW Plt Count Seg Neuts % (Manual) Lymphocytes % (Manual) Seg Neutrophils # Man Lymphocytes # (Manual) Monocytes # (Manual) APTT ABG pH POC ABG pCO2 POC ABG pO2 ABG pO2 ABG Hemoglobin ABG Oxyhemoglobin ABG Sodium ABG Potassium ABG Chloride ABG Glucose Carboxyhemoglobin Sodium 135 L Potassium Chloride Carbon Dioxide 21 L BUN 62 H Creatinine 3.8 H Glucose 132 H POC Glucose 130 H Lactic Acid Calcium 5.6 L* Ionized Calcium 3.3 L Phosphorus Magnesium AST Alkaline Phosphatase Total Protein Albumin Triglycerides Arterial Blood Glucose Arterial Blood Ionized Calcium Urine Creatinine Crossmatch 12/28/20 12/28/20 12/28/20 05:36 07:08 07:28 WBC 27.2 H RBC 3.50 L Hgb 9.6 L Hct 30.8 L MCHC 31 L RDW 16.1 H Plt Count 111 L Seg Neuts % (Manual) 95.0 H Lymphocytes % (Manual) Seg Neutrophils # Man 25.8 H Lymphocytes # (Manual) 0.0 L Monocytes # (Manual) 1.1 H APTT ABG pH 7.200 L POC ABG pCO2 POC ABG pO2 67.2 L ABG pO2 ABG Hemoglobin 10.3 L ABG Oxyhemoglobin 89.6 L ABG Sodium 127.8 L ABG Potassium 5.1 H ABG Chloride ABG Glucose 132 H Carboxyhemoglobin 0.4 L Sodium Potassium Chloride Carbon Dioxide BUN Creatinine Glucose POC Glucose 128 H Lactic Acid Calcium Ionized Calcium Phosphorus Magnesium AST Alkaline Phosphatase Total Protein Albumin Triglycerides Arterial Blood Glucose 132 H Arterial Blood Ionized Calcium 3.5 L Urine Creatinine Crossmatch 12/28/20 12/28/20 12/28/20 07:28 11:37 13:25 WBC RBC Hgb Hct MCHC RDW Plt Count Seg Neuts % (Manual) Lymphocytes % (Manual) Seg Neutrophils # Man Lymphocytes # (Manual) Monocytes # (Manual) APTT ABG pH POC ABG pCO2 POC ABG pO2 ABG pO2 ABG Hemoglobin ABG Oxyhemoglobin ABG Sodium ABG Potassium ABG Chloride ABG Glucose Carboxyhemoglobin Sodium 131 L 133 L Potassium 5.9 H 5.1 H Chloride 97.1 L Carbon Dioxide 15 L 21 L BUN 70 H 77 H Creatinine 4.0 H 4.4 H Glucose 118 H 140 H POC Glucose 135 H Lactic Acid Calcium 6.3 L 6.3 L Ionized Calcium Phosphorus 7.10 H Magnesium AST 144 H Alkaline Phosphatase Total Protein 4.8 L Albumin 1.3 L Triglycerides Arterial Blood Glucose Arterial Blood Ionized Calcium Urine Creatinine Crossmatch 12/28/20 12/28/20 12/29/20 16:38 23:28 03:08 WBC RBC Hgb Hct MCHC RDW Plt Count Seg Neuts % (Manual) Lymphocytes % (Manual) Seg Neutrophils # Man Lymphocytes # (Manual) Monocytes # (Manual) APTT ABG pH 7.301 L POC ABG pCO2 POC ABG pO2 151.1 H ABG pO2 ABG Hemoglobin 8.7 L ABG Oxyhemoglobin 98.2 H ABG Sodium 123.4 L ABG Potassium ABG Chloride 97.0 L ABG Glucose 144 H Carboxyhemoglobin Sodium Potassium Chloride Carbon Dioxide BUN Creatinine Glucose POC Glucose 140 H 134 H Lactic Acid Calcium Ionized Calcium Phosphorus Magnesium AST Alkaline Phosphatase Total Protein Albumin Triglycerides Arterial Blood Glucose 144 H Arterial Blood Ionized Calcium 3.4 L Urine Creatinine Crossmatch 12/29/20 12/29/20 12/29/20 05:20 05:20 06:01 WBC 21.0 H RBC 2.89 L Hgb 8.1 L Hct 25.5 L MCHC RDW 16.1 H Plt Count 124 L Seg Neuts % (Manual) Lymphocytes % (Manual) Seg Neutrophils # Man Lymphocytes # (Manual) Monocytes # (Manual) APTT ABG pH POC ABG pCO2 POC ABG pO2 ABG pO2 ABG Hemoglobin ABG Oxyhemoglobin ABG Sodium ABG Potassium ABG Chloride ABG Glucose Carboxyhemoglobin Sodium 131 L Potassium Chloride 93.4 L Carbon Dioxide BUN 79 H Creatinine 4.7 H Glucose 122 H POC Glucose 108 H Lactic Acid Calcium 5.5 L* Ionized Calcium Phosphorus 5.70 H Magnesium 1.60 L AST Alkaline Phosphatase Total Protein Albumin Triglycerides Arterial Blood Glucose Arterial Blood Ionized Calcium Urine Creatinine Crossmatch 12/29/20 12/29/20 12/29/20 10:04 11:27 17:31 WBC RBC Hgb Hct MCHC RDW Plt Count Seg Neuts % (Manual) Lymphocytes % (Manual) Seg Neutrophils # Man Lymphocytes # (Manual) Monocytes # (Manual) APTT ABG pH POC ABG pCO2 POC ABG pO2 ABG pO2 ABG Hemoglobin ABG Oxyhemoglobin ABG Sodium ABG Potassium ABG Chloride ABG Glucose Carboxyhemoglobin Sodium Potassium Chloride Carbon Dioxide BUN Creatinine Glucose POC Glucose 107 H 112 H 110 H Lactic Acid Calcium Ionized Calcium Phosphorus Magnesium AST Alkaline Phosphatase Total Protein Albumin Triglycerides Arterial Blood Glucose Arterial Blood Ionized Calcium Urine Creatinine Crossmatch 12/30/20 12/30/20 12/30/20 03:31 08:06 17:39 WBC RBC Hgb Hct MCHC RDW Plt Count Seg Neuts % (Manual) Lymphocytes % (Manual) Seg Neutrophils # Man Lymphocytes # (Manual) Monocytes # (Manual) APTT ABG pH 7.261 L POC ABG pCO2 POC ABG pO2 123.1 H ABG pO2 ABG Hemoglobin 8.7 L ABG Oxyhemoglobin ABG Sodium 123.2 L ABG Potassium ABG Chloride 96.0 L ABG Glucose 112 H Carboxyhemoglobin Sodium 128 L Potassium Chloride 90.7 L Carbon Dioxide 21 L BUN 86 H Creatinine 4.9 H Glucose 107 H POC Glucose 134 H Lactic Acid Calcium 6.2 L Ionized Calcium Phosphorus 5.30 H Magnesium 1.50 L AST Alkaline Phosphatase Total Protein Albumin Triglycerides Arterial Blood Glucose 112 H Arterial Blood Ionized Calcium 3.2 L Urine Creatinine Crossmatch 12/30/20 12/31/20 12/31/20 22:45 02:14 04:40 WBC RBC Hgb Hct MCHC RDW Plt Count Seg Neuts % (Manual) Lymphocytes % (Manual) Seg Neutrophils # Man Lymphocytes # (Manual) Monocytes # (Manual) APTT ABG pH 7.267 L POC ABG pCO2 POC ABG pO2 ABG pO2 ABG Hemoglobin 8.0 L ABG Oxyhemoglobin 93.7 L ABG Sodium ABG Potassium ABG Chloride 95.0 L ABG Glucose 108 H Carboxyhemoglobin 1.7 H Sodium 126 L Potassium Chloride 90.3 L Carbon Dioxide 20 L BUN 70 H Creatinine 4.3 H Glucose 209 H POC Glucose 109 H Lactic Acid Calcium 6.6 L Ionized Calcium Phosphorus 4.70 H Magnesium 1.60 L AST Alkaline Phosphatase Total Protein Albumin Triglycerides 157 H Arterial Blood Glucose 108 H Arterial Blood Ionized Calcium 3.7 L Urine Creatinine Crossmatch 12/31/20 12/31/20 01/01/21 16:23 23:21 04:00 WBC 18.0 H RBC 2.75 L Hgb 7.7 L Hct 23.9 L MCHC RDW 15.6 H Plt Count Seg Neuts % (Manual) 91.0 H Lymphocytes % (Manual) 6.0 L Seg Neutrophils # Man 16.4 H Lymphocytes # (Manual) 1.1 L Monocytes # (Manual) APTT ABG pH 7.264 L POC ABG pCO2 POC ABG pO2 74.8 L ABG pO2 ABG Hemoglobin 7.1 L ABG Oxyhemoglobin 92.1 L ABG Sodium 124.9 L ABG Potassium ABG Chloride 95.0 L ABG Glucose 111 H Carboxyhemoglobin 1.7 H Sodium Potassium Chloride Carbon Dioxide BUN Creatinine Glucose POC Glucose 125 H Lactic Acid Calcium Ionized Calcium Phosphorus Magnesium AST Alkaline Phosphatase Total Protein Albumin Triglycerides Arterial Blood Glucose 111 H Arterial Blood Ionized Calcium 4.0 L Urine Creatinine Crossmatch 01/01/21 01/01/21 01/01/21 05:50 13:41 15:55 WBC RBC Hgb Hct MCHC RDW Plt Count Seg Neuts % (Manual) Lymphocytes % (Manual) Seg Neutrophils # Man Lymphocytes # (Manual) Monocytes # (Manual) APTT ABG pH 7.148 L 7.207 L POC ABG pCO2 53.1 H POC ABG pO2 57.3 L 138.4 H ABG pO2 ABG Hemoglobin 9.0 L 8.3 L ABG Oxyhemoglobin 83.2 L ABG Sodium 126.2 L 124.5 L ABG Potassium ABG Chloride 95.0 L 95.0 L ABG Glucose 96 H 120 H Carboxyhemoglobin Sodium 131 L Potassium Chloride 93.3 L Carbon Dioxide 21 L BUN 67 H Creatinine 4.2 H Glucose POC Glucose Lactic Acid Calcium 7.1 L Ionized Calcium Phosphorus Magnesium AST 60 H Alkaline Phosphatase Total Protein 4.8 L Albumin 1.4 L Triglycerides Arterial Blood Glucose 96 H 120 H Arterial Blood Ionized Calcium 4.1 L 3.9 L Urine Creatinine Crossmatch 01/01/21 01/01/21 01/02/21 17:09 23:24 03:47 WBC RBC Hgb Hct MCHC RDW Plt Count Seg Neuts % (Manual) Lymphocytes % (Manual) Seg Neutrophils # Man Lymphocytes # (Manual) Monocytes # (Manual) APTT ABG pH 7.276 L POC ABG pCO2 POC ABG pO2 173.6 H ABG pO2 ABG Hemoglobin 7 L ABG Oxyhemoglobin ABG Sodium 122.4 L ABG Potassium ABG Chloride 94.0 L ABG Glucose 118 H Carboxyhemoglobin Sodium Potassium Chloride Carbon Dioxide BUN Creatinine Glucose POC Glucose 124 H 119 H Lactic Acid Calcium Ionized Calcium Phosphorus Magnesium AST Alkaline Phosphatase Total Protein Albumin Triglycerides Arterial Blood Glucose 118 H Arterial Blood Ionized Calcium 4.0 L Urine Creatinine Crossmatch 01/02/21 01/02/21 01/02/21 05:33 08:00 08:00 WBC 19.7 H RBC 2.53 L Hgb 7.1 L Hct 22.0 L MCHC RDW 16.4 H Plt Count Seg Neuts % (Manual) Lymphocytes % (Manual) Seg Neutrophils # Man Lymphocytes # (Manual) Monocytes # (Manual) APTT ABG pH POC ABG pCO2 POC ABG pO2 ABG pO2 ABG Hemoglobin ABG Oxyhemoglobin ABG Sodium ABG Potassium ABG Chloride ABG Glucose Carboxyhemoglobin Sodium 127 L Potassium Chloride 89.3 L Carbon Dioxide 19 L BUN 82 H Creatinine 5.0 H Glucose 103 H POC Glucose 107 H Lactic Acid Calcium 7.8 L Ionized Calcium Phosphorus 6.40 H Magnesium AST 47 H Alkaline Phosphatase Total Protein 5.0 L Albumin 1.6 L Triglycerides Arterial Blood Glucose Arterial Blood Ionized Calcium Urine Creatinine Crossmatch 01/02/21 01/03/21 01/03/21 17:25 07:56 09:47 WBC 17.7 H RBC 2.19 L Hgb 6.2 L Hct 18.5 L* MCHC RDW 16.1 H Plt Count Seg Neuts % (Manual) Lymphocytes % (Manual) Seg Neutrophils # Man Lymphocytes # (Manual) Monocytes # (Manual) APTT ABG pH POC ABG pCO2 POC ABG pO2 ABG pO2 ABG Hemoglobin ABG Oxyhemoglobin ABG Sodium ABG Potassium ABG Chloride ABG Glucose Carboxyhemoglobin Sodium 130 L Potassium 3.5 L Chloride 90.3 L Carbon Dioxide BUN 68 H Creatinine 3.9 H Glucose 103 H POC Glucose 116 H Lactic Acid Calcium 8.0 L Ionized Calcium Phosphorus 4.80 H D Magnesium AST Alkaline Phosphatase Total Protein Albumin Triglycerides Arterial Blood Glucose Arterial Blood Ionized Calcium Urine Creatinine Crossmatch 01/03/21 01/03/21 01/04/21 11:00 19:00 03:12 WBC 17.0 H RBC 2.51 L Hgb 7.1 L Hct 21.5 L MCHC RDW 16.6 H Plt Count Seg Neuts % (Manual) Lymphocytes % (Manual) Seg Neutrophils # Man Lymphocytes # (Manual) Monocytes # (Manual) APTT ABG pH 7.463 H POC ABG pCO2 POC ABG pO2 62.6 L ABG pO2 ABG Hemoglobin 6.2 L ABG Oxyhemoglobin 91.8 L ABG Sodium 128.4 L ABG Potassium 3.3 L ABG Chloride 96.0 L ABG Glucose 112 H Carboxyhemoglobin Sodium Potassium Chloride Carbon Dioxide BUN Creatinine Glucose POC Glucose Lactic Acid Calcium Ionized Calcium Phosphorus Magnesium AST Alkaline Phosphatase Total Protein Albumin Triglycerides Arterial Blood Glucose 112 H Arterial Blood Ionized Calcium 4.3 L Urine Creatinine Crossmatch See Detail 01/04/21 01/04/21 01/04/21 05:16 06:20 06:20 WBC 18.5 H RBC 2.53 L Hgb 7.4 L Hct 21.9 L MCHC RDW 15.8 H Plt Count Seg Neuts % (Manual) Lymphocytes % (Manual) Seg Neutrophils # Man Lymphocytes # (Manual) Monocytes # (Manual) APTT ABG pH POC ABG pCO2 POC ABG pO2 ABG pO2 ABG Hemoglobin ABG Oxyhemoglobin ABG Sodium ABG Potassium ABG Chloride ABG Glucose Carboxyhemoglobin Sodium 135 L Potassium Chloride 95.2 L Carbon Dioxide BUN 56 H Creatinine 3.2 H Glucose 109 H POC Glucose 123 H Lactic Acid Calcium 7.6 L Ionized Calcium Phosphorus Magnesium AST Alkaline Phosphatase Total Protein Albumin Triglycerides Arterial Blood Glucose Arterial Blood Ionized Calcium Urine Creatinine Crossmatch
[2021-01-04] MEDS: fentaNYL 100 MCG/2 ML INJ IV PRN (12:57)
--- NOTE | 2021-01-04 15:10 | Progress Note ---
Assessment and Plan Cultures: 12/20/2020 sputum culture: In process 12/20/2020 blood culture: No growth 12/20/2020 urine culture: Usual skin giorgio 12/20/2020 tracheal aspirate culture: Mucor A/P: 60-year-old male with obesity, hypertension, tobacco abuse, coronary artery disease, admitted to the hospital on 12/20/2020 with: #Septic shock: Secondary to intra-abdominal source, peritonitis. Patient with necrotic bowel secondary to incarcerated ventral hernia. Status post exploratory laparotomy, extensive adhesiolysis, small bowel resection and peritoneal lavage along with ABThera VAC placement on 12/20/2020, replacement 12/29/2020. Remains on 2x pressors. #JONI: Renally dose antibiotics. #Morbid obesity Recs: -continue renally dosed Zosyn. -continue Fluconazole 200 mg daily -Will continue antibiotics until 5 days post his final surgery pending clinical course -Believe Mucor in tracheal aspirate is a colonizer of the tube. Minimal immunosuppression with diabetes, otherwise none. Agree with avoidance of steroids. We will continue to follow. Priscilla Marie MD [facility] ([facility] O: [phone] F: [phone] Subjective Date of service: 01/04/21 Principal diagnosis: SBO and necrosis of large part of small intestine Interval history: Afebrile, white count increased today to 18.5. Objective - Exam Narrative Exam: Physical Exam: Constitutional: sedated, intubated, on the vent Head, Ears, Nose: Normocephalic, atraumatic. External ears, nose normal Eyes: Conjunctivae/corneas clear. No icterus. No ptosis. Neck: intubated Oral: intubated Cardiovascular: S1, S2 + Respiratory: AE fair bilaterally and equal GI: Woundvac in place Musculoskeletal: No pedal edema, no cyanosis. Skin: No rash or abscess Hem/Lymphatic: No palpable cervical or supraclavicular nodes. No lymphangitis Psych: no agitation Neurological: sedated, intubated, on the vent, exam limited - Constitutional Vitals: Vital Signs Temp Pulse Resp BP Pulse Ox 98.5 F 92 H 24 123/56 93 01/04/21 12:00 01/04/21 14:00 01/04/21 14:00 01/04/21 14:00 01/04/21 13:30 Temperature -Last 24 Hours Temperature 98.5 F Temperature 98.8 F Temperature 98.3 F Temperature 98.8 F Temperature 98.5 F Temperature 98.5 F Temperature 98.3 F Temperature 98.5 F Temperature 98.3 F Temperature 98.3 F Temperature 98.8 F Temperature 98.7 F Temperature 98.5 F Temperature 98.7 F - Labs CBC & Chem 7: 01/04/21 06:20 01/04/21 06:20 Labs: Abnormal lab results 01/03/21 01/03/21 01/04/21 Range/Units 11:00 19:00 03:12 WBC 17.0 H (4.5-11.0) K/mm3 RBC 2.51 L (3.65-5.03) M/mm3 Hgb 7.1 L (11.8-15.2) gm/dl Hct 21.5 L (35.5-45.6) % RDW 16.6 H (13.2-15.2) % ABG pH 7.463 H (7.320-7.450) POC ABG pO2 62.6 L (83-108) mmHg ABG Hemoglobin 6.2 L (12.0-17.5) ABG Oxyhemoglobin 91.8 L (94-98) ABG Sodium 128.4 L (136.0-145.0) mmol/L ABG Potassium 3.3 L (3.40-4.50) mmol/L ABG Chloride 96.0 L (98-107) mmol/L ABG Glucose 112 H (65-95) mg/dL Sodium (137-145) mmol/L Chloride (98-107) mmol/L BUN (9-20) mg/dL Creatinine (0.8-1.3) mg/dL Glucose (75-100) mg/dL POC Glucose (70-105) mg/dL Calcium (8.4-10.2) mg/dL Arterial Blood Glucose 112 H (65-95) mg/dL Arterial Blood Ionized Calcium 4.3 L (4.6-5.3) mg/dL Crossmatch See Detail 01/04/21 01/04/21 01/04/21 Range/Units 05:16 06:20 06:20 WBC 18.5 H (4.5-11.0) K/mm3 RBC 2.53 L (3.65-5.03) M/mm3 Hgb 7.4 L (11.8-15.2) gm/dl Hct 21.9 L (35.5-45.6) % RDW 15.8 H (13.2-15.2) % ABG pH (7.320-7.450) POC ABG pO2 (83-108) mmHg ABG Hemoglobin (12.0-17.5) ABG Oxyhemoglobin (94-98) ABG Sodium (136.0-145.0) mmol/L ABG Potassium (3.40-4.50) mmol/L ABG Chloride (98-107) mmol/L ABG Glucose (65-95) mg/dL Sodium 135 L (137-145) mmol/L Chloride 95.2 L (98-107) mmol/L BUN 56 H (9-20) mg/dL Creatinine 3.2 H (0.8-1.3) mg/dL Glucose 109 H (75-100) mg/dL POC Glucose 123 H (70-105) mg/dL Calcium 7.6 L (8.4-10.2) mg/dL Arterial Blood Glucose (65-95) mg/dL Arterial Blood Ionized Calcium (4.6-5.3) mg/dL Crossmatch
--- NOTE | 2021-01-04 15:31 | Progress Note ---
<LILIYAMARGE H. - Last Filed: 01/04/21 15:27> Assessment and Plan Assessment and plan: This is a 60-year-old male with obesity, hypertension, nicotine dependence, PVD s/p stent placement on dual antiplatelet therapy, hyperlipidemia, OA, GERD, ventral hernia and small bowel obstruction who was admitted with small bowel obstruction and peritonitis Septic Shock, POA (presented with leukocytosis, tachycardia, tachypnea,febrile and evidence of peritonitis) COVID-19 PUI, ruled out Small bowel obstruction with peritonitis Ventral hernia s/p repair Leukocytosis Anemia Hyponatremia Hypochloremia Acute Kidney Injury Obesity Hypertension Nicotine dependence CAD s/p stent placement Hyperlipidemia Osteoarthritis GERD -CCM, surgery, infectious disease, nephrology consulted, appreciate recommendations -12/20 CT abdomen/pelvis showed high-grade small bowel obstruction related to severe complex ventral abdominal wall hernias, progressed in appearance from prior exam from 09/12/2020 without evidence of pneumonitis or pneumoperitoneum, patchy bibasilar airspace disease concern for atypical infectious process/pneumonitis -12/20 s/p ex lap, extensive lysis of adhesions, small bowel resection (removal of 70 cm necrotic small bowel segment), peritoneal lavage and ABThera abdominal wound VAC placement -12/23 s/p abdominal exploration, small bowel resection, peritoneal lavage, ABThera wound VAC placement -12/26 s/p ex lap, small bowel resection, peritoneal lavage, ABThera wound VAC placement -12/29 s/p ex lap, small bowel resection, small bowel anastomosis and ABThera wound VAC placement -01/01 s/p myocutaneous flap creation, abdominal wall component separation and placement of phasix mesh with surgery yesterday where his abdomen was closed and 2 LAURA drains were placed on either side of his midline between fascia and subcu tissue. -12/30 initiated on HD by nephro -IV abx per ID: Zosyn, fluconazole to continue for 5 days until final surgery -NGT, will try to clamp -NPO for now, TPN -SSI, Accucheck q6 -s/p Vasopressor support as tolerated -HD per nephro -12/23 Fractional excretion of sodium calculated at 0.16 indicating prerenal state -COVID-19 PCR negative -On mechanical ventilation, wean as tolerated, VAP bundle -Sedated with propofol and analgesia with fentanyl drip -Transfuse for Hbg < 7 -Trend CBC, BMP, Mg, Phos GI/DVT prophylaxis: PPI, SCDs to bilateral lower extremities while in bed, Disposition: ICU The high probability of a clinically significant, sudden or life threatening deterioration of the [multi] system(s) required my full and direct attention, intervention and personal management. The aggregate critical care time was [35] minutes. This time is in addition to time spent performing reported procedures but includes the following: [x] Data Review and interpretation [x] Patient assessment and monitoring of vital signs [x] Documentation [x] Medication orders and management History Interval history: This is a 60-year-old male with obesity, hypertension, nicotine dependence, PVD s/p stent placement on dual antiplatelet therapy, hyperlipidemia, OA, GERD, ventral hernia with SBO who presents to the emergency department on 12/20 with severe, diffuse, worsened with movement, slightly relieved with rest abdominal pain rated at 10/10 with decreased oral intake, nausea and multiple episodes of vomiting. Patient underwent a CT of his abdomen/pelvis and was found to have evidence of small bowel obstruction as well as clinical findings consistent with acute peritonitis. Patient was admitted to the hospital service with acute peritonitis and incarcerated ventral hernia with consults to [facility] and surgery. 12/21: Patient is status post ex lap, extensive lysis of adhesions, small bowel resection, peritoneal lavage and ABThera abdominal wound VAC placement by Dr. Tena and Dr. Brumfield on 12/20 with removal of a 70 cm segment of necrotic small bowel. Patient was intubated and sedated on propofol 10/ fent 4 at the time of my examination on Assist-control, rate of 24, PEEP of 6, tidal volume of 550 and FiO2 35%. Patient needed to be deeply sedated and there was a became hypotensive. Patient was started on patient for support with Levophed and received bolus of IVF. 12/22: Patient was febrile to 103 and vancomycin and Diflucan were added by [facility] and infectious disease was consulted and they increased Zosyn and stop vancomycin. Patient was given additional 1 L bolus today for CVP goal of 10-12. At the time of examination patient was on Levophed, propofol and fentanyl CMV tidal volume 500, rate of 24, PEEP of 6 and FiO2 65%. Plan for OR tomorrow 12/23: Patient Cr/BUN noted to be increased and nephrology was consulted. ID decreased the zosyn dose d/r renal function. Urine studies ordered. Ivy placed today. LR boluses per [facility], TPN to be started. Fractional excretion of sodium calculated at 0.16 indicating prerenal state 12/24: Patient is status post abdominal exploration, small bowel resection of 4 to 5 cm segment of dusky small bowel, peritoneal lavage and ABThera wound VAC placement on 12/23 with surgery, leukocytosis and renal function is improving, worsening hypernatremia and hyperchloremia. Patient will be started on TPN today. We will place on SSI/Accu-Cheks every every 6 hours. Patient noted to be nearly maxed on Levophed and vasopressin was ordered. Remains sedated and on MV 12/25: Leukocytosis continues to improve, given Ca Gluconate today, Hypernatremia, Cr and hyperchorlemia slightly worsened today. Patient is sedated with propofol and fentanyl on CMV TV 500, Rate 24, Peep 6, FiO2 50%. He remains on levophed. Possible OR Saturday. 12/26 Patient presented with small bowel obstruction, is status post ex lap, extensive lysis of adhesions, small bowel resection, peritoneal lavage and ABThera abdominal wound VAC placement by Dr. Tena and Dr. Brumfield on 12/20 with removal of a 70 cm segment of necrotic small bowel. Was taken back to OR on 12/23 s/p Abdominal exploration, Small bowel resection, Peritoneal lavage, ABThera wound VAC placement. he is still having fever. Poss going to OR again today. Sepsis managed by ID. He is on Diflucan, Zosyn. He is on Levophed. 6/ s/p ex lap, extensive lysis of adhesions, small bowel resection (removal of 70 cm necrotic small bowel segment), peritoneal lavage and ABThera abdominal wound VAC placement. Still having fever Still on vent 12/28: Patient is orally intubated with AC mode ventilation rate 24, tidal volume 500, FiO2 75% and PEEP of 6. POD#8 s/p ex lap and small bowel resection for necrotic bowel secondary to incarcerated ventral hernia left with open abdomen. POD#5 s/p abdominal exploration with segmental small bowel resection. abthera placement POD#2 s/p abdominal exploration, small bowel resection for ischemia, abthera placement -[facility], surgery, infectious disease, nephrology consulted, appreciate recommendations -IV abx per ID: Zosyn, fluconazole -NGT to LIWS -NPO for now, TPN -SSI, Accucheck q6 -Vasopressor support with levophed -On mechanical ventilation, wean as tolerated, VAP bundle -Sedated with propofol and analgesia with fentanyl drip -Trend CBC, BMP, Mg, Phos -GI/DVT prophylaxis: PPI, SCDs to bilateral lower extremities while in bed, avoid chemical anticoagulation to cleared by surgery 12/29: Patient underwent abdominal exploration, small bowel resection, small bowel anastomosis and ABThera wound VAC placement this a.m. Patient remains on AC mode ventilation with a rate of 24, tidal volume 500, FiO2 65% and PEEP of 6. Continue antibiotics per ID recommendations. Continue vasopressor support as needed. Continue TPN for nutritional support. 12/30: Patient currently with AC mode ventilation rate of 24, tidal volume 500, FiO2 60% and PEEP of 6. Patient underwent further surgery yesterday with another abdominal exploration, small bowel resection, small bowel anastomosis and replacement of the ABThera wound VAC. Patient continues to require vasopressor support with vasopressin and Levophed. Continue TPN for nutrition. Continue propofol and fentanyl for sedation. Continue Zosyn per ID recommendations 12: Patient currently with AC mode ventilation rate of 24, tidal volume 500, FiO2 50% and PEEP of 6. POD#12 s/p ex lap and small bowel resection for necrotic bowel secondary to incarcerated ventral hernia left with open abdomen. POD#9 s/p abdominal exploration with segmental small bowel resection. abthera placement POD#3 s/p abdominal exploration, small bowel resection for ischemia, abthera placement POD#2 s/p abdominal exploration with small bowel anastamosis and abthera vac placement Continue hemodialysis per nephrology recommendations. Surgery plans for abdominal washout and bowel examination on Saturday. If anastamosis looks viable and no other issues, surgery plans to close his abdomen. 01/01: Continue current ventilator settings per pulmonary monitor ABG. Continue antibiotics per ID recommendations. Surgery plans for abdominal washout and bowel examination. If anastamosis looks viable and no other issues, surgery plans to close his abdomen. Wean pressors to maintain MAP > 65. Continue TPN for nutritional support. Hemodialysis per nephrology recommendations. Prognosis remains guarded. 01/02: At the time my examination patient was only on vasopressin for vasopressor support, sedated on 30 mcg of propofol and 4 mcg of fentanyl. Patient was on CMV tidal volume 500, rate of 12, PEEP of 10 and 50% FiO2. Patient remains on TPN and with NG tube to low intermittent suction. Patient underwent a myocutaneous flap creation, abdominal wall component separation and placement of phasix mesh with surgery yesterday where his abdomen was closed and 2 LAURA drains were placed on either side of his midline between fascia and subcu tissue. Per infectious his antibiotics will continue until 5 days postop from a final surgery. Patient has increasing leukocytosis which are likely reactive to surgery and patient will have hemodialysis today for clearance and volume removal. Patient sedation and mechanical ventilation will be weaned for extubation. 01/03: Patient H/H is 6.2/18.5 and he is being transfused 2 units PRBC with hemodialysis today. Patient has slight hypokalemia but TPN has been adjusted to address potassium. Patient continues to have hyponatremia, hypochloremia and hyperphosphatemia closely improved. The time my examination patient sedated on fentanyl and propofol and LAURA drainage noted to be more serosanguineous. Patient was on assist control with TV 500, PEEP of 8, rate of 28 and FiO2 40%. Patient remains off vasopressor support. No acute overnight events reported 01/04: Patient sedated on propofol and fentanyl. RN reported bowel movement overnight. Precedex drip started. NG tube clamped and may start trickle tube feedings later if patient does not have high residuals. CCM continues to wean ventilation as tolerated. On my exam patient is on CMV tidal volume 500 rate of 28, PEEP of 8 and 40% FiO2. Patient is having periods of agitation and FiO2 had to be increased for hypoxia. Mucor species in tracheal aspirate but ID believes this is colonization. Hospitalist Physical - Constitutional Vitals: Temp Pulse Resp BP Pulse Ox 98.5 F 92 H 24 123/56 93 01/04/21 12:00 01/04/21 14:00 01/04/21 14:00 01/04/21 14:01/04/21 13:30 General appearance: Present: no acute distress, well-nourished, other (Sedated on ventilator) - EENT Eyes: Present: PERRL, EOM intact ENT: poor dentition - Respiratory Respiratory effort: normal - Cardiovascular Rhythm: regular Heart Sounds: Present: S1 & S2. Absent: systolic murmur, diastolic murmur - Extremities Extremities: no ischemia, pulses intact, pulses symmetrical, normal temperature, normal color Extremity abnormal: edema Peripheral Pulses: within normal limits - Abdominal General gastrointestinal: soft, non-tender, non-distended, hypoactive bowel sounds - Integumentary Integumentary: Present: warm, dry - Psychiatric Psychiatric: other (sedated) - Neurologic Neurologic: moves all extremities - Allied Health Allied health notes reviewed: nursing, RT, social work HEART Score - HEART Score Troponin: Troponin T < 0.010 ng/mL (0.00-0.029) 12/20/20 13:58 Results - Labs CBC & Chem 7: 01/04/21 06:20 01/04/21 06:20 Labs: Laboratory Last Values WBC 18.5 K/mm3 (4.5-11.0) H 01/04/21 06:20 RBC 2.53 M/mm3 (3.65-5.03) L 01/04/21 06:20 Hgb 7.4 gm/dl (11.8-15.2) L 01/04/21 06:20 Hct 21.9 % (35.5-45.6) L 01/04/21 06:20 MCV 87 fl (84-94) 01/04/21 06:20 MCH 29 pg (28-32) 01/04/21 06:20 MCHC 34 % (32-34) 01/04/21 06:20 RDW 15.8 % (13.2-15.2) H 01/04/21 06:20 Plt Count 345 K/mm3 (140-440) 01/04/21 06:20 Add Manual Diff Complete 12/31/20 16:23 Total Counted 100 12/31/20 16:23 Seg Neutrophils % [employer] 12/31/20 16:23 Seg Neuts % (Manual) 91.0 % (40.0-70.0) H 12/31/20 16:23 Band Neutrophils % 2.0 % 12/31/20 16:23 Lymphocytes % (Manual) 6.0 % (13.4-35.0) L 12/31/20 16:23 Monocytes % (Manual) 1.0 % (0.0-7.3) 12/31/20 16:23 Nucleated RBC % Not Reportable 12/31/20 16:23 Seg Neutrophils # Man 16.4 K/mm3 (1.8-7.7) H 12/31/20 16:23 Band Neutrophils # 0.4 K/mm3 12/31/20 16:23 Lymphocytes # (Manual) 1.1 K/mm3 (1.2-5.4) L 12/31/20 16:23 Abs React Lymphs (Man) 0.0 K/mm3 12/31/20 16:23 Monocytes # (Manual) 0.2 K/mm3 (0.0-0.8) 12/31/20 16:23 Eosinophils # (Manual) 0.0 K/mm3 (0.0-0.4) 12/31/20 16:23 Basophils # (Manual) 0.0 K/mm3 (0.0-0.1) 12/31/20 16:23 Metamyelocytes # 0.0 K/mm3 12/31/20 16:23 Myelocytes # 0.0 K/mm3 12/31/20 16:23 Promyelocytes # 0.0 K/mm3 12/31/20 16:23 Blast Cells # 0.0 K/mm3 12/31/20 16:23 WBC Morphology Not Reportable 12/31/20 16:23 Hypersegmented Neuts Not Reportable 12/31/20 16:23 Hyposegmented Neuts Not Reportable 12/31/20 16:23 Hypogranular Neuts Not Reportable 12/31/20 16:23 Smudge Cells Not Reportable 12/31/20 16:23 Toxic Granulation Not Reportable 12/31/20 16:23 Toxic Vacuolation Not Reportable 12/31/20 16:23 Dohle Bodies Not Reportable 12/31/20 16:23 Pelger-Huet Anomaly Not Reportable 12/31/20 16:23 Mirian Rods Not Reportable 12/31/20 16:23 Platelet Estimate Consistent w auto 12/31/20 16:23 Clumped Platelets Not Reportable 12/31/20 16:23 Plt Clumps, EDTA Not Reportable 12/31/20 16:23 Large Platelets Not Reportable 12/31/20 16:23 Giant Platelets Not Reportable 12/31/20 16:23 Platelet Satelliting Not Reportable 12/31/20 16:23 Plt Morphology Comment Not Reportable 12/31/20 16:23 RBC Morphology Not Reportable 12/31/20 16:23 Dimorphic RBCs Not Reportable 12/31/20 16:23 Polychromasia Not Reportable 12/31/20 16:23 Hypochromasia Not Reportable 12/31/20 16:23 Poikilocytosis Not Reportable 12/31/20 16:23 Anisocytosis 1+ 12/31/20 16:23 Microcytosis Not Reportable 12/31/20 16:23 Macrocytosis Not Reportable 12/31/20 16:23 Spherocytes Not Reportable 12/31/20 16:23 Pappenheimer Bodies Not Reportable 12/31/20 16:23 Sickle Cells Not Reportable 12/31/20 16:23 Target Cells Not Reportable 12/31/20 16:23 Tear Drop Cells Not Reportable 12/31/20 16:23 Ovalocytes Not Reportable 12/31/20 16:23 Helmet Cells Not Reportable 12/31/20 16:23 Mart-[place] Bodies Not Reportable 12/31/20 16:23 [place] Rings Not Reportable 12/31/20 16:23 Jonathan Cells Not Reportable 12/31/20 16:23 Bite Cells Not Reportable 12/31/20 16:23 Crenated Cell Not Reportable 12/31/20 16:23 Elliptocytes Not Reportable 12/31/20 16:23 Acanthocytes (Spur) Not Reportable 12/31/20 16:23 Rouleaux Not Reportable 12/31/20 16:23 Hemoglobin C Crystals Not Reportable 12/31/20 16:23 Schistocytes Not Reportable 12/31/20 16:23 Malaria parasites Not Reportable 12/31/20 16:23 Dylon Bodies Not Reportable 12/31/20 16:23 Hem Pathologist Commnt No 12/31/20 16:23 APTT 49.4 Sec. (24.2-36.6) H 12/20/20 13:58 ABG pH 7.463 (7.320-7.450) H 01/04/21 03:12 POC ABG pCO2 33.1 mmHg (32.0-48.0) 01/04/21 03:12 ABG pCO2 51.0 mm Hg 12/20/20 21:30 POC ABG pO2 62.6 mmHg (83-108) L 01/04/21 03:12 ABG pO2 104.4 mm Hg (80.0-90.0) H 12/20/20 21:30 POC ABG HCO3 23.2 01/04/21 03:12 ABG HCO3 25.3 mmol/L (20.0-26.0) 12/20/20 21:30 ABG O2 Saturation 93.4 (0-100) 01/04/21 03:12 ABG O2 Content 20.3 (0.0-44) 12/20/20 21:30 POC ABG Base Excess -0.4 01/04/21 03:12 ABG Base Excess -1.7 mmol/L (-2.0-3.0) 12/20/20 21:30 ABG Hemoglobin 6.2 (12.0-17.5) L 01/04/21 03:12 ABG Oxyhemoglobin 91.8 (94-98) L 01/04/21 03:12 ABG Carboxyhemoglobin 1.3 % (0.0-5.0) 12/20/20 21:30 ABG Methemoglobin 0.3 (0.0-1.5) 01/04/21 03:12 ABG Sodium 128.4 mmol/L (136.0-145.0) L 01/04/21 03:12 ABG Potassium 3.3 mmol/L (3.40-4.50) L 01/04/21 03:12 ABG Chloride 96.0 mmol/L (98-107) L 01/04/21 03:12 ABG Glucose 112 mg/dL (65-95) H 01/04/21 03:12 Oxyhemoglobin 95.2 % (95.0-99.0) 12/20/20 21:30 Carboxyhemoglobin 1.4 (0.5-1.5) 01/04/21 03:12 FiO2 100 % 12/20/20 21:30 FiO2 % 40.0 01/04/21 03:12 Sodium 135 mmol/L (137-145) L 01/04/21 06:20 Potassium 3.6 mmol/L (3.6-5.0) 01/04/21 06:20 Chloride 95.2 mmol/L (98-107) L 01/04/21 06:20 Carbon Dioxide 27 mmol/L (22-30) 01/04/21 06:20 Anion Gap 16 mmol/L 01/04/21 06:20 BUN 56 mg/dL (9-20) H 01/04/21 06:20 Creatinine 3.2 mg/dL (0.8-1.3) H 01/04/21 06:20 Estimated GFR 20 ml/min 01/04/21 06:20 BUN/Creatinine Ratio 18 % 01/04/21 06:20 Glucose 109 mg/dL (75-100) H 01/04/21 06:20 POC Glucose 99 mg/dL (70-105) 01/04/21 11:42 Lactic Acid 1.70 mmol/L (0.7-2.0) 12/20/20 16:20 Calcium 7.6 mg/dL (8.4-10.2) L 01/04/21 06:20 Ionized Calcium 3.3 mg/dL (4.8-5.6) L 12/27/20 14:40 Phosphorus 3.60 mg/dL (2.5-4.5) D 01/04/21 06:20 Magnesium 1.80 mg/dL (1.7-2.3) 01/04/21 06:20 Total Bilirubin 0.50 mg/dL (0.1-1.2) 01/02/21 08:00 AST 47 units/L (5-40) H 01/02/21 08:00 ALT 26 units/L (7-56) 01/02/21 08:00 Alkaline Phosphatase 80 units/L (35-129) 01/02/21 08:00 Troponin T < 0.010 ng/mL (0.00-0.029) 12/20/20 13:58 Total Protein 5.0 g/dL (6.3-8.2) L 01/02/21 08:00 Albumin 1.6 g/dL (3.9-5) L 01/02/21 08:00 Albumin/Globulin Ratio 0.5 % 01/02/21 08:00 Triglycerides 144 mg/dL (2-149) 01/03/21 07:56 Arterial Blood Glucose 112 mg/dL (65-95) H 01/04/21 03:12 Arterial Blood Ionized Calcium 4.3 mg/dL (4.6-5.3) L 01/04/21 03:12 Urine Color Yellow (Yellow) 12/23/20 12:15 Urine Turbidity Cloudy (Clear) 12/23/20 12:15 Urine pH 5.0 (5.0-7.0) 12/23/20 12:15 Ur Specific [place] 1.019 (1.003-1.030) 12/23/20 12:15 Urine Protein <15 mg/dl mg/dL (Negative) 12/23/20 12:15 Urine Glucose (UA) Neg mg/dL (Negative) 12/23/20 12:15 Urine Ketones Neg mg/dL (Negative) 12/23/20 12:15 Urine Blood Sm (Negative) 12/23/20 12:15 Urine Nitrite Neg (Negative) 12/23/20 12:15 Urine Bilirubin Neg (Negative) 12/23/20 12:15 Urine Urobilinogen < 2.0 mg/dL (<2.0) 12/23/20 12:15 Ur Leukocyte Esterase Neg (Negative) 12/23/20 12:15 Urine WBC (Auto) 5.0 /HPF (0.0-6.0) 12/23/20 12:15 Urine RBC (Auto) 2.0 /HPF (0.0-6.0) 12/23/20 12:15 U Epithel Cells (Auto) < 1.0 /HPF (0-13.0) 12/20/20 Unknown Urine Bacteria (Auto) 1+ /HPF (Negative) 12/23/20 12:15 Triple Phos Crystals 2+ 12/23/20 12:15 Hyaline Casts 19 /LPF 12/20/20 Unknown Urine Mucus Few /HPF 12/23/20 12:15 Urine Eosinophils None seen (None Seen) 12/23/20 12:15 Urine Creatinine 78.1 mg/dL (0.1-20.0) H 12/23/20 12:15 Urine Sodium 13 mmol/L 12/23/20 12:15 Fraction Sodium Excret 0.2 12/23/20 12:15 Random Vancomycin 7.9 ug/mL (0-40.0) 12/23/20 12:15 Coronavirus (PCR) Negative (Negative) 12/21/20 Unknown Hepatitis A IgM Ab Non-reactive (NonReactive) 12/30/20 14:40 Hep Bs Antigen Non-reactive (Negative) 12/30/20 14:40 Hep B Core IgM Ab Non-reactive (NonReactive) 12/30/20 14:40 Hepatitis C Antibody Non-reactive (NonReactive) 12/30/20 14:40 Blood Type A NEGATIVE 01/03/21 11:00 Antibody Screen Negative 01/03/21 11:00 Crossmatch See Detail 01/03/21 11:00 Lawrence/IV: Voiding Method Indwelling Catheter Active Medications - Current Medications Current Medications: Generic Name Dose Route Start Last Admin Trade Name Freq PRN Reason Stop Dose Admin Acetaminophen 650 mg 12/21/20 11:51 12/25/20 20:35 Acetaminophen 650 Mg Rect Supp NV 650 mg Q4H PRN Administration TEMP >/=100.4 Bisacodyl 10 mg 12/30/20 11:00 01/04/21 10:45 Bisacodyl 10 Mg Rect Supp NV 10 mg QDAY ASCENCION Administration Dextrose 50 ml 12/24/20 10:49 Dextrose 50% In Water (25gm) 50 Ml Syringe IV Q30MIN PRN Hypoglycemia Protocol Famotidine 20 mg 12/26/20 10:00 01/04/21 10:58 Famotidine 20 Mg/2 Ml Inj IV 20 mg DAILY ASCENCION Administration Fentanyl 50 mcg 12/20/20 21:58 01/04/21 12:57 Fentanyl 100 Mcg/2 Ml Inj IV 50 mcg Q10MIN PRN Administration ANALGESIA Hydrophilic Ointment 1 applic 12/20/20 21:58 Lip Therapy Vaseline TP Q2HR PRN Dry Lips Fentanyl Citrate 2,000 mcg in 100 mls @ 6.01 mls/hr 12/20/20 22:00 01/04/21 13:00 Fentanyl Drip Premix IV 3 mcg/kg/hr TITR ASCENCION 18.03 mls/hr Administration Protocol 1 MCG/KG/HR Propofol 1,000 mg in 100 mls @ 3.606 mls/hr 12/20/20 22:00 01/04/21 14:29 Diprivan 10 Mg/Ml IV 0 mcg/kg/min TITR ASCENCION 0 mls/hr Titration Protocol 5 MCG/KG/MIN NORepinephrine/NS 8 MG-250 ML 8 mg in 250 mls @ 3.75 mls/hr 12/21/20 09:00 01/02/21 06:15 Norepinephrine/Ns 8 Mg-250 Ml (Double Conc) IV 0 mcg/min TITRATE ASCENCION 0 mls/hr Titration Protocol 2 MCG/MIN Vasopressin 20 unit/ Sodium 101 mls @ 9.09 mls/hr 12/24/20 09:00 01/02/21 09:49 Chloride IV 0 units/min TITR ASCENCION 0 mls/hr Titration Protocol 0.03 UNITS/MIN Piperacillin Sod/Tazobactam Sod 4.5 gm in 100 mls @ 200 mls/hr 12/26/20 18:00 01/04/21 06:13 Zosyn/Ns 4.5gm/100ml IV 01/06/21 23:59 200 mls/hr Q12H ASCENCION Administration Protocol Fluconazole 200 mg in 100 mls @ 100 mls/hr 12/26/20 10:00 01/04/21 10:58 Diflucan IV 01/06/21 23:59 100 mls/hr Q24H ASCENCION Administration Protocol Amino Acids/Electrolytes/Dextrose 2,400 mls @ 100 mls/hr 01/03/21 20:00 01/03/21 20:14 Tpn Adult IV 01/04/21 19:59 100 mls/hr DAILY@1999 ASCENCION Administration Protocol Sodium Chloride 100 mls @ 999 mls/hr 01/03/21 10:21 Nacl 0.9% IV MARILU PRN Hypotension Amino Acids/Electrolytes/Dextrose 2,400 mls @ 100 mls/hr 01/04/21 20:00 Tpn Adult IV 01/05/21 19:59 DAILY@1999 [facility] Protocol Dexmedetomidine HCl 400 mcg/ 104 mls @ 7.322 mls/hr 01/04/21 11:00 01/04/21 13:30 Sodium Chloride IV 0.5 mcg/kg/hr TITRATE ASCENCION 18.304 mls/hr Titration Protocol 0.2 MCG/KG/HR Insulin Human Regular 0 units 12/28/20 00:00 01/04/21 11:56 Insulin Regular, Human 100 Units/1 Ml SUB-Q Not Given Q6H [facility] Protocol Multi-Ingred Cream/Lotion/Oil/Oint 1 applic 12/20/20 21:58 01/03/21 01:13 Mineral Oil/Petrolatum, White Ophth Oint 3.5 Gm OU 1 applic Q4HR PRN Administration Dry Eye(s) Sodium Chloride 10 ml 12/20/20 22:00 01/04/21 11:00 Sodium Chloride 0.9% 10 Ml Flush Syringe IV 10 ml BID ASCENCION Administration Sodium Chloride 10 ml 12/20/20 16:42 Sodium Chloride 0.9% 10 Ml Flush Syringe IV PRN PRN LINE FLUSH Nutrition/Malnutrition Assess - Dietary Evaluation Nutrition/Malnutrition Findings: Nutrition Notes Start: 12/21/20 09:06 Freq: Status: Active Protocol: Document 01/04/21 09:02 PIETRO (Rec: 01/04/21 09:06 PIETRO [id number]) Nutrition Notes Initial or Follow up Reassessment Current Diagnosis Acute Kidney Injury,Coronary Artery Disease,Hypertension, Small Bowel Obstruction, Hyperlipidemia Other Pertinent Diagnosis gangrenous small bowel, s/p small bowel ressection, peritonitis Current Diet TPN at 100 ml/hr Labs/Tests Na 135 BUN 56 Cr 3.2 Pertinent Medications Propofol at 14.424 ml/hr Height 6 ft Weight 140.8 kg [place] Body Weight (kg) 80.90 BMI 42.0 Weight Status Morbidly Obese Subjective/Other Information Day 12 CPN. Pt had HD again yesterday. Unable to wean pt off vent. NGT to LIS continues . Percent of energy/protein needs met: 96%/74% Burn Absent Trauma Absent GI Symptoms Other Current % PO Negligible Minimum of two criteria No Fluid Accumulation Mild (non-severe) #2 Nutrition Diagnosis Increased nutrient needs ( specify in comment below) Diagnosis Progress(for reassessment Continues documentation) #1 Nutrition Diagnosis Inadequate oral intake Diagnosis Progress(for reassessment Continues documentation) Is patient on ventilator? Yes Is Patient Ambulatory and/or Out of Bed No REE-([facility]-confined to bed) 2717.172 Kcal/Kg value to use for calculation 15 Approximate Energy Requirements Using 2112 kcal/Kg Calculation Used for Recommendations Kcal/kg Additional Notes Pro needs >2g/kg IBW: >162g/ day Fluid needs per MD Nutrition Intervention Change Diet Order: Continue CPN Nutrition Support: CPN at 100 ml/hr: MVI Kcal 1,840 Protein (gm) 120 Carbohydrates (gm) 40 Fat (gm) 0 Fluid (mL) 2,400 Fiber (gm) 0 Goal #1 Meet needs as best as possible via CPN Anticipated Discharge Needs: Unable to determine at this time Follow-Up By: 01/05/21 Additional Comments Labs in am: BMP, Phos <AVTAR MAYO Last Filed: 01/05/21 16:37> Assessment and Plan Assessment and plan: Patient seen and examined, agree with assessment and plan as outlined by nurse practitioner above. I have personally examined the patient. Attempted to wean patient off of the vent, however patient very agitated, had to go up on the sedation. FiO2 increased due to sats falling around 86%. Patient with tachycardia, most likely secondary to low sedation. Hospitalist Physical - Constitutional Vitals: Temp Pulse Resp BP Pulse Ox 98.5 F 89 24 142/71 87 01/05/21 16:00 01/05/21 16:00 01/05/21 16:00 01/05/21 16:00 01/05/21 16:00 HEART Score - HEART Score Troponin: Troponin T < 0.010 ng/mL (0.00-0.029) 12/20/20 13:58 Results - Labs CBC & Chem 7: 01/05/21 07:22 01/05/21 07:22 Labs: Laboratory Last Values WBC 23.8 K/mm3 (4.5-11.0) H 01/05/21 07:22 RBC 2.93 M/mm3 (3.65-5.03) L 01/05/21 07:22 Hgb 8.2 gm/dl (11.8-15.2) L 01/05/21 07:22 Hct 25.1 % (35.5-45.6) L 01/05/21 07:22 MCV 86 fl (84-94) 01/05/21 07:22 MCH 28 pg (28-32) 01/05/21 07:22 MCHC 33 % (32-34) 01/05/21 07:22 RDW 16.5 % (13.2-15.2) H 01/05/21 07:22 Plt Count 408 K/mm3 (140-440) 01/05/21 07:22 Add Manual Diff Complete 12/31/20 16:23 Total Counted 100 12/31/20 16:23 Seg Neutrophils % [employer] 12/31/20 16:23 Seg Neuts % (Manual) 91.0 % (40.0-70.0) H 12/31/20 16:23 Band Neutrophils % 2.0 % 12/31/20 16:23 Lymphocytes % (Manual) 6.0 % (13.4-35.0) L 12/31/20 16:23 Monocytes % (Manual) 1.0 % (0.0-7.3) 12/31/20 16:23 Nucleated RBC % Not Reportable 12/31/20 16:23 Seg Neutrophils # Man 16.4 K/mm3 (1.8-7.7) H 12/31/20 16:23 Band Neutrophils # 0.4 K/mm3 12/31/20 16:23 Lymphocytes # (Manual) 1.1 K/mm3 (1.2-5.4) L 12/31/20 16:23 Abs React Lymphs (Man) 0.0 K/mm3 12/31/20 16:23 Monocytes # (Manual) 0.2 K/mm3 (0.0-0.8) 12/31/20 16:23 Eosinophils # (Manual) 0.0 K/mm3 (0.0-0.4) 12/31/20 16:23 Basophils # (Manual) 0.0 K/mm3 (0.0-0.1) 12/31/20 16:23 Metamyelocytes # 0.0 K/mm3 12/31/20 16:23 Myelocytes # 0.0 K/mm3 12/31/20 16:23 Promyelocytes # 0.0 K/mm3 12/31/20 16:23 Blast Cells # 0.0 K/mm3 12/31/20 16:23 WBC Morphology Not Reportable 12/31/20 16:23 Hypersegmented Neuts Not Reportable 12/31/20 16:23 Hyposegmented Neuts Not Reportable 12/31/20 16:23 Hypogranular Neuts Not Reportable 12/31/20 16:23 Smudge Cells Not Reportable 12/31/20 16:23 Toxic Granulation Not Reportable 12/31/20 16:23 Toxic Vacuolation Not Reportable 12/31/20 16:23 Dohle Bodies Not Reportable 12/31/20 16:23 Pelger-Huet Anomaly Not Reportable 12/31/20 16:23 Mirian Rods Not Reportable 12/31/20 16:23 Platelet Estimate Consistent w auto 12/31/20 16:23 Clumped Platelets Not Reportable 12/31/20 16:23 Plt Clumps, EDTA Not Reportable 12/31/20 16:23 Large Platelets Not Reportable 12/31/20 16:23 Giant Platelets Not Reportable 12/31/20 16:23 Platelet Satelliting Not Reportable 12/31/20 16:23 Plt Morphology Comment Not Reportable 12/31/20 16:23 RBC Morphology Not Reportable 12/31/20 16:23 Dimorphic RBCs Not Reportable 12/31/20 16:23 Polychromasia Not Reportable 12/31/20 16:23 Hypochromasia Not Reportable 12/31/20 16:23 Poikilocytosis Not Reportable 12/31/20 16:23 Anisocytosis 1+ 12/31/20 16:23 Microcytosis Not Reportable 12/31/20 16:23 Macrocytosis Not Reportable 12/31/20 16:23 Spherocytes Not Reportable 12/31/20 16:23 Pappenheimer Bodies Not Reportable 12/31/20 16:23 Sickle Cells Not Reportable 12/31/20 16:23 Target Cells Not Reportable 12/31/20 16:23 Tear Drop Cells Not Reportable 12/31/20 16:23 Ovalocytes Not Reportable 12/31/20 16:23 Helmet Cells Not Reportable 12/31/20 16:23 Mart-[place] Bodies Not Reportable 12/31/20 16:23 [place] Rings Not Reportable 12/31/20 16:23 Jonathan Cells Not Reportable 12/31/20 16:23 Bite Cells Not Reportable 12/31/20 16:23 Crenated Cell Not Reportable 12/31/20 16:23 Elliptocytes Not Reportable 12/31/20 16:23 Acanthocytes (Spur) Not Reportable 12/31/20 16:23 Rouleaux Not Reportable 12/31/20 16:23 Hemoglobin C Crystals Not Reportable 12/31/20 16:23 Schistocytes Not Reportable 12/31/20 16:23 Malaria parasites Not Reportable 12/31/20 16:23 Dylon Bodies Not Reportable 12/31/20 16:23 Hem Pathologist Commnt No 12/31/20 16:23 APTT 49.4 Sec. (24.2-36.6) H 12/20/20 13:58 ABG pH 7.437 (7.320-7.450) 01/05/21 14:06 POC ABG pCO2 39.2 mmHg (32.0-48.0) 01/05/21 14:06 ABG pCO2 37.9 mm Hg 01/05/21 03:50 POC ABG pO2 332.3 mmHg (83-108) H 01/05/21 14:06 ABG pO2 136.8 mm Hg (80.0-90.0) H 01/05/21 03:50 POC ABG HCO3 25.8 01/05/21 14:06 ABG HCO3 22.4 mmol/L (20.0-26.0) 01/05/21 03:50 ABG O2 Saturation 99.8 (0-100) 01/05/21 14:06 ABG O2 Content 9.8 (0.0-44) 01/05/21 03:50 POC ABG Base Excess 1.6 01/05/21 14:06 ABG Base Excess -2.3 mmol/L (-2.0-3.0) L 01/05/21 03:50 ABG Hemoglobin 7.7 (12.0-17.5) L 01/05/21 14:06 ABG Oxyhemoglobin 98.7 (94-98) H 01/05/21 14:06 ABG Carboxyhemoglobin 1.5 % (0.0-5.0) 01/05/21 03:50 ABG Methemoglobin 0.3 (0.0-1.5) 01/05/21 14:06 ABG Sodium 131.0 mmol/L (136.0-145.0) L 01/05/21 14:06 ABG Potassium 3.3 mmol/L (3.40-4.50) L 01/05/21 14:06 ABG Chloride 97.0 mmol/L (98-107) L 01/05/21 14:06 ABG Glucose 118 mg/dL (65-95) H 01/05/21 14:06 Oxyhemoglobin 96.7 % (95.0-99.0) 01/05/21 03:50 Carboxyhemoglobin 0.8 (0.5-1.5) 01/05/21 14:06 FiO2 50 % 01/05/21 03:50 FiO2 % 100.0 01/05/21 14:06 Sodium 134 mmol/L (137-145) L 06/17/21 07:22 Potassium 4.4 mmol/L (3.6-5.0) D 01/05/21 07:22 Chloride 93.3 mmol/L (98-107) L 01/05/21 07:22 Carbon Dioxide 22 mmol/L (22-30) 01/05/21 07:22 Anion Gap 23 mmol/L 01/05/21 07:22 BUN 77 mg/dL (9-20) H 01/05/21 07:22 Creatinine 4.2 mg/dL (0.8-1.3) H 01/05/21 07:22 Estimated GFR 15 ml/min 01/05/21 07:22 BUN/Creatinine Ratio 18 % 01/05/21 07:22 Glucose 105 mg/dL (75-100) H 01/05/21 07:22 POC Glucose 111 mg/dL (70-105) H 01/05/21 15:37 Lactic Acid 1.70 mmol/L (0.7-2.0) 12/20/20 16:20 Calcium 8.9 mg/dL (8.4-10.2) D 01/05/21 07:22 Ionized Calcium 3.3 mg/dL (4.8-5.6) L 12/27/20 14:40 Phosphorus 4.90 mg/dL (2.5-4.5) H D 01/05/21 07:22 Magnesium 1.80 mg/dL (1.7-2.3) 01/04/21 06:20 Total Bilirubin 0.50 mg/dL (0.1-1.2) 01/02/21 08:00 AST 47 units/L (5-40) H 01/02/21 08:00 ALT 26 units/L (7-56) 01/02/21 08:00 Alkaline Phosphatase 80 units/L (35-129) 01/02/21 08:00 Troponin T < 0.010 ng/mL (0.00-0.029) 12/20/20 13:58 Total Protein 5.0 g/dL (6.3-8.2) L 01/02/21 08:00 Albumin 1.6 g/dL (3.9-5) L 01/02/21 08:00 Albumin/Globulin Ratio 0.5 % 01/02/21 08:00 Triglycerides 144 mg/dL (2-149) 01/03/21 07:56 Arterial Blood Glucose 118 mg/dL (65-95) H 01/05/21 14:06 Arterial Blood Ionized Calcium 4.4 mg/dL (4.6-5.3) L 01/05/21 14:06 Urine Color Yellow (Yellow) 12/23/20 12:15 Urine Turbidity Cloudy (Clear) 12/23/20 12:15 Urine pH 5.0 (5.0-7.0) 12/23/20 12:15 Ur Specific [place] 1.019 (1.003-1.030) 12/23/20 12:15 Urine Protein <15 mg/dl mg/dL (Negative) 12/23/20 12:15 Urine Glucose (UA) Neg mg/dL (Negative) 12/23/20 12:15 Urine Ketones Neg mg/dL (Negative) 12/23/20 12:15 Urine Blood Sm (Negative) 12/23/20 12:15 Urine Nitrite Neg (Negative) 12/23/20 12:15 Urine Bilirubin Neg (Negative) 12/23/20 12:15 Urine Urobilinogen < 2.0 mg/dL (<2.0) 12/23/20 12:15 Ur Leukocyte Esterase Neg (Negative) 12/23/20 12:15 Urine WBC (Auto) 5.0 /HPF (0.0-6.0) 12/23/20 12:15 Urine RBC (Auto) 2.0 /HPF (0.0-6.0) 12/23/20 12:15 U Epithel Cells (Auto) < 1.0 /HPF (0-13.0) 12/20/20 Unknown Urine Bacteria (Auto) 1+ /HPF (Negative) 12/23/20 12:15 Triple Phos Crystals 2+ 12/23/20 12:15 Hyaline Casts 19 /LPF 12/20/20 Unknown Urine Mucus Few /HPF 12/23/20 12:15 Urine Eosinophils None seen (None Seen) 12/23/20 12:15 Urine Creatinine 78.1 mg/dL (0.1-20.0) H 12/23/20 12:15 Urine Sodium 13 mmol/L 12/23/20 12:15 Fraction Sodium Excret 0.2 12/23/20 12:15 Random Vancomycin 7.9 ug/mL (0-40.0) 12/23/20 12:15 Coronavirus (PCR) Negative (Negative) 12/21/20 Unknown Hepatitis A IgM Ab Non-reactive (NonReactive) 12/30/20 14:40 Hep Bs Antigen Non-reactive (Negative) 12/30/20 14:40 Hep B Core IgM Ab Non-reactive (NonReactive) 12/30/20 14:40 Hepatitis C Antibody Non-reactive (NonReactive) 12/30/20 14:40 Blood Type A NEGATIVE 01/03/21 11:00 Antibody Screen Negative 01/03/21 11:00 Crossmatch See Detail 01/03/21 11:00 Lawrence/IV: Voiding Method Indwelling Catheter Active Medications - Current Medications Current Medications: Generic Name Dose Route Start Last Admin Trade Name Freq PRN Reason Stop Dose Admin Acetaminophen 650 mg 12/21/20 11:51 12/25/20 20:35 Acetaminophen 650 Mg Rect Supp NV 650 mg Q4H PRN Administration TEMP >/=100.4 Bisacodyl 10 mg 12/30/20 11:00 01/05/21 09:03 Bisacodyl 10 Mg Rect Supp NV Not Given QDAY ASCENCION Dextrose 50 ml 12/24/20 10:49 Dextrose 50% In Water (25gm) 50 Ml Syringe IV Q30MIN PRN Hypoglycemia Protocol Famotidine 20 mg 12/26/20 10:00 01/05/21 14:11 Famotidine 20 Mg/2 Ml Inj IV 20 mg DAILY ASCENCION Administration Fentanyl 50 mcg 12/20/20 21:58 01/05/21 13:29 Fentanyl 100 Mcg/2 Ml Inj IV 50 mcg Q10MIN PRN Administration ANALGESIA Fentanyl 50 mcg 01/05/21 11:00 01/05/21 14:02 Fentanyl 100 Mcg/2 Ml Inj IV 50 mcg Q2H PRN Administration sedation Hydrophilic Ointment 1 applic 12/20/20 21:58 Lip Therapy Vaseline TP Q2HR PRN Dry Lips Fentanyl Citrate 2,000 mcg in 100 mls @ 6.01 mls/hr 12/20/20 22:00 01/05/21 13:13 Fentanyl Drip Premix IV 4 mcg/kg/hr TITR ASCENCION 24.04 mls/hr Administration Protocol 1 MCG/KG/HR Propofol 1,000 mg in 100 mls @ 3.606 mls/hr 12/20/20 22:00 01/05/21 16:14 Diprivan 10 Mg/Ml IV 5 mcg/kg/min TITR ASCENCION 3.606 mls/hr Administration Protocol 5 MCG/KG/MIN NORepinephrine/NS 8 MG-250 ML 8 mg in 250 mls @ 3.75 mls/hr 12/21/20 09:00 01/02/21 06:15 Norepinephrine/Ns 8 Mg-250 Ml (Double Conc) IV 0 mcg/min TITRATE ASCENCION 0 mls/hr Titration Protocol 2 MCG/MIN Vasopressin 20 unit/ Sodium 101 mls @ 9.09 mls/hr 12/24/20 09:00 01/02/21 09:49 Chloride IV 0 units/min TITR ASCENCION 0 mls/hr Titration Protocol 0.03 UNITS/MIN Piperacillin Sod/Tazobactam Sod 4.5 gm in 100 mls @ 200 mls/hr 12/26/20 18:00 01/05/21 05:58 Zosyn/Ns 4.5gm/100ml IV 01/06/21 23:59 200 mls/hr Q12H ASCENCION Administration Protocol Fluconazole 200 mg in 100 mls @ 100 mls/hr 12/26/20 10:00 01/05/21 14:11 Diflucan IV 01/06/21 23:59 100 mls/hr Q24H ASCENCION Administration Protocol Sodium Chloride 100 mls @ 999 mls/hr 01/03/21 10:21 Nacl 0.9% IV MARILU PRN Hypotension Amino Acids/Electrolytes/Dextrose 2,400 mls @ 100 mls/hr 01/04/21 20:00 01/04/21 21:10 Tpn Adult IV 01/05/21 19:59 100 mls/hr DAILY@1999 ASCENC[facility] Administration Protocol Dexmedetomidine HCl 400 mcg/ 104 mls @ 7.322 mls/hr 01/04/21 11:00 01/05/21 15:38 Sodium Chloride IV Infused TITRATE ASCENCION Titration Protocol 0.2 MCG/KG/HR Sodium Chloride 500 mls @ 0 mls/hr 01/05/21 07:56 Nacl 0.9% 500 Ml IV 01/06/21 07:55 ONCE NR As Directed Amino Acids/Electrolytes/Dextrose 2,400 mls @ 100 mls/hr 01/05/21 20:00 Tpn Adult IV 01/06/21 19:59 DAILY@1999 [facility] Protocol Insulin Human Regular 0 units 12/28/20 00:00 01/05/21 12:37 Insulin Regular, Human 100 Units/1 Ml SUB-Q Not Given Q6H [facility] Protocol Multi-Ingred Cream/Lotion/Oil/Oint 1 applic 12/20/20 21:58 01/03/21 01:13 Mineral Oil/Petrolatum, White Ophth Oint 3.5 Gm OU 1 applic Q4HR PRN Administration Dry Eye(s) Sodium Chloride 10 ml 12/20/20 22:00 01/05/21 14:12 Sodium Chloride 0.9% 10 Ml Flush Syringe IV 10 ml BID ASCENCION Administration Sodium Chloride 10 ml 12/20/20 16:42 Sodium Chloride 0.9% 10 Ml Flush Syringe IV PRN PRN LINE FLUSH Nutrition/Malnutrition Assess - Dietary Evaluation Nutrition/Malnutrition Findings: Nutrition Notes Start: 12/21/20 09:06 Freq: Status: Active Protocol: Document 01/05/21 13:58 GER (Rec: 01/05/21 14:33 GER [id number]) Nutrition Notes Initial or Follow up Reassessment Current Diagnosis Acute Kidney Injury,Coronary Artery Disease,Sepsis, Hypertension,Small Bowel Obstruction,Hyperlipidemia Other Pertinent Diagnosis gangrenous small bowel, s/p small bowel ressection, peritonitis Current Diet TPN at 100ml/hr Labs/Tests Na 134 Cl 93.3 BUN 77 Cr 4.2 Phos 4.9 Pertinent Medications Reviewed Height 6 ft Weight 140.8 kg [place] Body Weight (kg) 80.90 BMI 42.0 Weight Status Morbidly Obese Subjective/Other Information Day 13 CPN. Pt remains on vent support; received HD today. Percent of energy/protein needs met: 93% energy 90% pro Burn Absent Trauma Absent #2 Nutrition Diagnosis Increased nutrient needs ( specify in comment below) Diagnosis Progress(for reassessment Continues documentation) #1 Nutrition Diagnosis Inadequate oral intake Diagnosis Progress(for reassessment Continues documentation) Is patient on ventilator? Yes Is Patient Ambulatory and/or Out of Bed No REE-([facility]-confined to bed) 2717.172 Kcal/Kg value to use for calculation 14 Approximate Energy Requirements Using 1971 kcal/Kg Calculation Used for Recommendations Kcal/kg Additional Notes Pro needs >1.2g/kg adjBW: > 133g/day Fluid needs per MD. Nutrition Intervention Nutrition Support: Continue CPN at 100 ml/hr: MVI , 4.2% amino acids. Osmolality: 1312. Kcal 1,760 Protein (gm) 100 Carbohydrates (gm) 400 Fat (gm) 0 Fluid (mL) 2,400 Fiber (gm) 0 Goal #1 Meet needs as best as possible via CPN Follow-Up By: 01/06/21 Additional Comments Labs in am: BMP, Mg, Phos
--- NOTE | 2021-01-04 18:53 | Progress Note ---
Assessment and Plan Impression * Acute kidney injury. * Incarcerated hernia with ischemic bowel. Status post bowel resection * Hypernatremia, now with hyponatremia * Sepsis * Respiratory failure, intubated * Hyperkalemia * Metabolic Acidosis, Gap * Hypoalbuminemia * Anemia Recommendations * Started HD 12/30 for worsening renal function, electrolyte abnormalities, and volume control * Plan for HD tomorrow * Hold IVF * Transfuse for hgb < 7 * TPN per nutrition/primary * Pressors prn to maintain MAP greater than 65 * Avoid nephrotoxins * Monitor fluid status and electrolytes * Strict I/O * Primary and consult notes reviewed Subjective Date of service: 01/04/21 Principal diagnosis: SBO and necrosis of large part of small intestine Interval history: Remains intubated. Remains off vasopressors. Objective - Exam Narrative Exam: General: Sedated. Intubated HEENT: Oral mucosa moist Neck: Supple, no JVD Chest: Intubated, mechanical breath sounds Heart: RRR, S1 and S2, no pericardial rub Abdomen: Open abdomen Extremity: No peripheral cyanosis, edema Neurological: Sedated Dermatology: No skin rash Psych: Unable to assess Musculoskeletal: No joint effusion - Vital Signs Vital signs: Vital Signs - 12hr 01/04/21 01/04/21 01/04/21 07:00 07:30 08:00 Temperature 98.8 F Pulse Rate 99 H 101 H 97 H Respiratory 25 H 20 28 H Rate Blood Pressure 135/60 144/71 132/54 O2 Sat by Pulse 94 97 95 Oximetry 01/04/21 01/04/21 01/04/21 08:30 09:00 09:30 Temperature Pulse Rate 96 H 99 H 102 H Respiratory 26 H 28 H 25 H Rate Blood Pressure 127/60 130/63 145/72 O2 Sat by Pulse 95 94 88 Oximetry 01/04/21 01/04/21 01/04/21 10:00 10:30 11:00 Temperature Pulse Rate 117 H 105 H 111 H Respiratory 15 21 42 H Rate Blood Pressure 143/70 145/66 157/89 O2 Sat by Pulse 88 89 88 Oximetry 01/04/21 01/04/21 01/04/21 11:30 12:00 12:30 Temperature 98.5 F Pulse Rate 111 H 111 H 115 H Respiratory 33 H 31 H 34 H Rate Blood Pressure 168/72 159/87 173/93 O2 Sat by Pulse 89 88 87 Oximetry 01/04/21 01/04/21 01/04/21 12:57 13:00 13:02 Temperature Pulse Rate 108 H 94 H 94 H Respiratory 21 Rate Blood Pressure 160/84 160/84 160/84 O2 Sat by Pulse 92 Oximetry 01/04/21 01/04/21 01/04/21 13:30 14:00 14:30 Temperature Pulse Rate 93 H 92 H 94 H Respiratory 32 H 24 24 Rate Blood Pressure 136/68 123/56 115/70 O2 Sat by Pulse 93 91 Oximetry 01/04/21 01/04/21 01/04/21 15:00 15:30 16:00 Temperature 99.1 F Pulse Rate 88 91 H 93 H Respiratory 19 26 H 26 H Rate Blood Pressure 121/55 129/65 140/68 O2 Sat by Pulse 92 94 95 Oximetry 01/04/21 01/04/21 01/04/21 16:30 17:00 17:10 Temperature Pulse Rate 90 83 94 H Respiratory 25 H 26 H Rate Blood Pressure 137/68 119/53 132/73 O2 Sat by Pulse 95 96 Oximetry 01/04/21 01/04/21 17:30 18:00 Temperature Pulse Rate 96 H 90 Respiratory 35 H 18 Rate Blood Pressure 132/73 144/66 O2 Sat by Pulse 94 Oximetry - Lab 01/04/21 06:20 01/04/21 06:20 Most recent lab results ABG pH 7.463 (7.320-7.450) H 01/04/21 03:12 ABG pCO2 51.0 mm Hg 12/20/20 21:30 ABG pO2 104.4 mm Hg (80.0-90.0) H 12/20/20 21:30 ABG HCO3 25.3 mmol/L (20.0-26.0) 12/20/20 21:30 ABG O2 Saturation 93.4 (0-100) 01/04/21 03:12 Calcium 7.6 mg/dL (8.4-10.2) L 01/04/21 06:20 Phosphorus 3.60 mg/dL (2.5-4.5) D 01/04/21 06:20 Magnesium 1.80 mg/dL (1.7-2.3) 01/04/21 06:20 Urine Creatinine 78.1 mg/dL (0.1-20.0) H 12/23/20 12:15 Urine Sodium 13 mmol/L 12/23/20 12:15 Medications & Allergies - Medications Allergies/Adverse Reactions: Allergies Iodinated Contrast Media Adverse Reaction (Verified 09/04/18 14:20) Unknown Home Medications: Home Medications Medication Instructions Recorded Confirmed Last Taken Type Aspirin 81 mg PO DAILY #30 tab.chew 09/08/18 01/04/21 03/31/20 09:28 Rx AtorvaSTATin [Lipitor] 80 mg PO QHS tablet 05/08/19 01/04/21 03/28/20 Rx Albuterol Sulfate [Proventil Hfa] 13.4 gm IH Q6H #1 hfa.aer.ad 04/01/20 01/04/21 Unknown Rx Clopidogrel [Plavix] 75 mg PO DAILY #30 tablet 04/01/20 01/04/21 Unknown Rx Gabapentin 300 mg PO BID@0700,1800 30 Days 04/01/20 01/04/21 Unknown Rx capsule Gabapentin 600 mg PO QHS 30 Days capsule 04/01/20 01/04/21 Unknown Rx Metoprolol [Lopressor TAB] 25 mg PO BID #60 tablet 04/01/20 01/04/21 Unknown Rx [place]-3/Dha/Epa/Fish Oil [[place] 3 1 each PO BID #60 capsule 04/01/20 01/04/21 Unknown Rx 500 Softgel] Tiotropium [place] [Spiriva] 2 puff IH DAILY #30 cap.w.dev 04/01/20 01/04/21 Unknown Rx Ubidecarenone [Co Q-10] 10 mg PO BID #60 tab 04/01/20 01/04/21 03/29/20 Rx cilostazoL [Pletal] 50 mg PO BID 30 Days tablet 04/01/20 01/04/21 Unknown Rx oxyCODONE /ACETAMINOPHEN [Percocet 2 tab PO Q6H PRN tablet 04/01/20 01/04/21 Unknown Rx 5/325 mg] Phosphorus #1 [K-Phos Neutral] 250 mg PO QID 2 Days #8 tablet 09/14/20 01/04/21 Unknown Rx Active Medications: Generic Name Dose Route Start Last Admin Trade Name Freq PRN Reason Stop Dose Admin Acetaminophen 650 mg 12/21/20 11:51 12/25/20 20:35 Acetaminophen 650 Mg Rect Supp [place] 650 mg Q4H PRN Administration TEMP >/=100.4 Bisacodyl 10 mg 12/30/20 11:00 01/04/21 10:45 Bisacodyl 10 Mg Rect Supp SD 10 mg QDAY ASCENCION Administration Dextrose 50 ml 12/24/20 10:49 Dextrose 50% In Water (25gm) 50 Ml Syringe IV Q30MIN PRN Hypoglycemia Protocol Famotidine 20 mg 12/26/20 10:00 01/04/21 10:58 Famotidine 20 Mg/2 Ml Inj IV 20 mg DAILY ASCENCION Administration Fentanyl 50 mcg 12/20/20 21:58 01/04/21 12:57 Fentanyl 100 Mcg/2 Ml Inj IV 50 mcg Q10MIN PRN Administration ANALGESIA Hydrophilic Ointment 1 applic 12/20/20 21:58 Lip Therapy Vaseline TP Q2HR PRN Dry Lips Fentanyl Citrate 2,000 mcg in 100 mls @ 6.01 mls/hr 12/20/20 22:00 01/04/21 18:20 Fentanyl Drip Premix IV 3 mcg/kg/hr TITR ASCENCION 18.03 mls/hr Administration Protocol 1 MCG/KG/HR Propofol 1,000 mg in 100 mls @ 3.606 mls/hr 12/20/20 22:00 01/04/21 14:29 Diprivan 10 Mg/Ml IV 0 mcg/kg/min TITR ASCENCION 0 mls/hr Titration Protocol 5 MCG/KG/MIN NORepinephrine/NS 8 MG-250 ML 8 mg in 250 mls @ 3.75 mls/hr 12/21/20 09:00 01/02/21 06:15 Norepinephrine/Ns 8 Mg-250 Ml (Double Conc) IV 0 mcg/min TITRATE ASCENCION 0 mls/hr Titration Protocol 2 MCG/MIN Vasopressin 20 unit/ Sodium 101 mls @ 9.09 mls/hr 12/24/20 09:00 01/02/21 09:49 Chloride IV 0 units/min TITR ASCENCION 0 mls/hr Titration Protocol 0.03 UNITS/MIN Piperacillin Sod/Tazobactam Sod 4.5 gm in 100 mls @ 200 mls/hr 12/26/20 18:00 01/04/21 18:20 Zosyn/Ns 4.5gm/100ml IV 01/06/21 23:59 200 mls/hr Q12H ASCENCION Administration Protocol Fluconazole 200 mg in 100 mls @ 100 mls/hr 12/26/20 10:00 01/04/21 10:58 Diflucan IV 01/06/21 23:59 100 mls/hr Q24H ASCENCION Administration Protocol Amino Acids/Electrolytes/Dextrose 2,400 mls @ 100 mls/hr 01/03/21 20:00 01/03/21 20:14 Tpn Adult IV 01/04/21 19:59 100 mls/hr DAILY@1999 ASCENCION Administration Protocol Sodium Chloride 100 mls @ 999 mls/hr 01/03/21 10:21 Nacl 0.9% IV MARILU PRN Hypotension Amino Acids/Electrolytes/Dextrose 2,400 mls @ 100 mls/hr 01/04/21 20:00 Tpn Adult IV 01/05/21 19:59 DAILY@1999 [facility] Protocol Dexmedetomidine HCl 400 mcg/ 104 mls @ 7.322 mls/hr 01/04/21 11:00 01/04/21 16:53 Sodium Chloride IV 0.8 mcg/kg/hr TITRATE ASCENCION 29.286 mls/hr Administration Protocol 0.2 MCG/KG/HR Insulin Human Regular 0 units 12/28/20 00:00 01/04/21 18:20 Insulin Regular, Human 100 Units/1 Ml SUB-Q Not Given Q6H [facility] Protocol Multi-Ingred Cream/Lotion/Oil/Oint 1 applic 12/20/20 21:58 01/03/21 01:13 Mineral Oil/Petrolatum, White Ophth Oint 3.5 Gm OU 1 applic Q4HR PRN Administration Dry Eye(s) Sodium Chloride 10 ml 12/20/20 22:00 01/04/21 11:00 Sodium Chloride 0.9% 10 Ml Flush Syringe IV 10 ml BID ASCENCION Administration Sodium Chloride 10 ml 12/20/20 16:42 Sodium Chloride 0.9% 10 Ml Flush Syringe IV PRN PRN LINE FLUSH
[2021-01-04] MEDS ORDERED: TOTAL PARENTERAL NUTRITION 2,400 ML IV SCH (20:00)
[2021-01-05] MEDS: INSULIN REGULAR, HUMAN 100 UNITS/1 ML SUB-Q SCH ×4 (00:33→17:18)
[2021-01-05 04:14] LABS: ABG Base Excess -2.3 mmol/L (-2.0-3.0); ABG HCO3 22.4 mmol/L (20.0-26.0); ABG Methemoglobin 0.4 % (0.0-1.5); ABG Oxygen Saturation 98.6 % (95.0-99.0); ABG PCO2 37.9 mm Hg; ABG PH 7.39 pH Units (7.350-7.450); ABG PO2 136.8 mm Hg (80.0-90.0)
[2021-01-05] MEDS: fentaNYL DRIP Premix 2,000 MCG/100 ML BAG IV SCH ×5 (04:31→21:55)
[2021-01-05] MEDS: PIPERACIL/TAZOBACTA 4.5/NS 100 4.5 GM/100 ML VIAL IV SCH ×2 (05:58→17:17)
[2021-01-05] MEDS: fentaNYL 100 MCG/2 ML INJ IV PRN ×3 (07:22→14:02)
[2021-01-05] MEDS ORDERED: SODIUM CHLORIDE 0.9% 500 ML 500 ML IV NR (07:56)
[2021-01-05 08:00] LABS: Hematocrit 25.1 % (35.5-45.6); Hemoglobin 8.2 gm/dl (11.8-15.2); Mean Corpuscular HGB Conc 33 % (32-34); Mean Corpuscular Volume 86 fl (84-94); Platelet Count 408 K/mm3 (140-440); Red Blood Count 2.93 M/mm3 (3.65-5.03); Red Cell Distribution Width 16.5 % (13.2-15.2)
[2021-01-05 09:04] LABS: Calcium 8.9 mg/dL (8.4-10.2)
--- NOTE | 2021-01-05 13:15 | Progress Note ---
Assessment and Plan POD#17 s/p ex lap and small bowel resection for necrotic bowel secondary to incarcerated ventral hernia left with open abdomen. POD#14 s/p abdominal exploration with segmental small bowel resection. abthera placement POD#11 s/p abdominal exploration, small bowel resection for ischemia, abthera placement POD#8 s/p abdominal exploration with small bowel anastamosis and abthera vac placement POD#4 s/p abdomen closure with mesh Weaned of pressors. stable Renal failure, continue dialysis per nephrology Respiratory insufficiency, wean to extubation per right of way clearer continue NGT decompression Anemia likely due to illness and procedural losses. stable H/H. No signs of active bleeding Prognosis is guarded. Subjective Date of service: 01/05/21 Narrative: no acute events overnight. Pt currently on dialysis. Pt has had bowel movements. Weaning trials from the vent were tried. Did not tolerate. Objective Vital Signs - 12hr 01/05/21 01/05/21 01/05/21 01:30 02:00 02:30 Temperature Pulse Rate 75 74 74 Respiratory 28 H 28 H 28 H Rate Blood Pressure 114/56 115/52 112/55 O2 Sat by Pulse 96 96 96 Oximetry O2 Sat by Pulse Oximetry [ Anterior Bilateral Throughout] 01/05/21 01/05/21 01/05/21 03:00 03:30 03:45 Temperature 98.1 F Pulse Rate 73 73 Respiratory 28 H 28 H Rate Blood Pressure 112/55 110/53 O2 Sat by Pulse 97 Oximetry O2 Sat by Pulse Oximetry [ Anterior Bilateral Throughout] 01/05/21 01/05/21 01/05/21 04:00 04:02 04:30 Temperature Pulse Rate 102 H 101 H 105 H Respiratory 34 H 34 H Rate Blood Pressure 117/61 181/81 117/61 O2 Sat by Pulse 90 96 88 Oximetry O2 Sat by Pulse Oximetry [ Anterior Bilateral Throughout] 01/05/21 01/05/21 01/05/21 05:01 05:30 06:00 Temperature Pulse Rate 90 91 H 82 Respiratory 17 23 20 Rate Blood Pressure 127/70 136/80 122/59 O2 Sat by Pulse 90 87 91 Oximetry O2 Sat by Pulse Oximetry [ Anterior Bilateral Throughout] 01/05/21 01/05/21 01/05/21 06:30 07:00 07:18 Temperature Pulse Rate 105 H 100 H 98 H Respiratory 40 H 31 H Rate Blood Pressure 95/66 121/64 158/87 O2 Sat by Pulse 84 93 93 Oximetry O2 Sat by Pulse Oximetry [ Anterior Bilateral Throughout] 01/05/21 01/05/21 01/05/21 07:20 07:30 08:00 Temperature 98.8 F 98.8 F Pulse Rate 95 H 92 H Respiratory 28 H 21 Rate Blood Pressure 129/67 129/70 O2 Sat by Pulse 91 91 Oximetry O2 Sat by Pulse Oximetry [ Anterior Bilateral Throughout] 01/05/21 01/05/21 01/05/21 08:30 09:00 09:30 Temperature Pulse Rate 78 102 H 81 Respiratory 28 H 24 19 Rate Blood Pressure 112/56 166/81 136/68 O2 Sat by Pulse 98 97 97 Oximetry O2 Sat by Pulse Oximetry [ Anterior Bilateral Throughout] 01/05/21 01/05/21 01/05/21 10:00 10:15 10:30 Temperature 98.7 F Pulse Rate 79 96 H 96 H Respiratory 20 26 H Rate Blood Pressure 123/56 155/83 155/83 O2 Sat by Pulse 99 Oximetry O2 Sat by Pulse 99 Oximetry [ Anterior Bilateral Throughout] 01/05/21 01/05/21 01/05/21 10:45 11:00 11:15 Temperature Pulse Rate 95 H 100 H 96 H Respiratory 20 Rate Blood Pressure 149/85 149/85 121/57 O2 Sat by Pulse 98 Oximetry O2 Sat by Pulse Oximetry [ Anterior Bilateral Throughout] 01/05/21 01/05/21 01/05/21 11:26 11:27 11:30 Temperature 98.5 F Pulse Rate 99 H 99 H Respiratory 21 Rate Blood Pressure 121/57 156/78 O2 Sat by Pulse 99 91 Oximetry O2 Sat by Pulse Oximetry [ Anterior Bilateral Throughout] 01/05/21 01/05/21 01/05/21 11:45 12:00 12:16 Temperature Pulse Rate 96 H 95 H 81 Respiratory 20 Rate Blood Pressure 121/63 129/63 118/55 O2 Sat by Pulse 98 Oximetry O2 Sat by Pulse Oximetry [ Anterior Bilateral Throughout] 01/05/21 01/05/21 01/05/21 12:30 12:31 12:45 Temperature Pulse Rate 91 H 95 H 79 Respiratory 23 Rate Blood Pressure 131/90 131/90 137/80 O2 Sat by Pulse 97 Oximetry O2 Sat by Pulse Oximetry [ Anterior Bilateral Throughout] 01/05/21 13:00 Temperature Pulse Rate 86 Respiratory Rate Blood Pressure 116/63 O2 Sat by Pulse Oximetry O2 Sat by Pulse Oximetry [ Anterior Bilateral Throughout] - General physical appearance well developed, no distress, no pain - Respiratory normal expansion, normal respiratory effort - Abdomen other (staple line intact. LAURA drains SS) - Genitourinary other (scrotal edema) - Labs 01/05/21 07:22 01/05/21 07:22 Diabetes panel 01/05/21 Range/Units 07:22 Sodium 134 L (137-145) mmol/L Potassium 4.4 D (3.6-5.0) mmol/L Chloride 93.3 L (98-107) mmol/L Carbon Dioxide 22 (22-30) mmol/L BUN 77 H (9-20) mg/dL Creatinine 4.2 H (0.8-1.3) mg/dL Glucose 105 H (75-100) mg/dL Calcium 8.9 D (8.4-10.2) mg/dL Calcium panel 01/05/21 Range/Units 07:22 Calcium 8.9 D (8.4-10.2) mg/dL Phosphorus 4.90 H D (2.5-4.5) mg/dL Pituitary panel 01/05/21 Range/Units 07:22 Sodium 134 L (137-145) mmol/L Potassium 4.4 D (3.6-5.0) mmol/L Chloride 93.3 L (98-107) mmol/L Carbon Dioxide 22 (22-30) mmol/L BUN 77 H (9-20) mg/dL Creatinine 4.2 H (0.8-1.3) mg/dL Glucose 105 H (75-100) mg/dL Calcium 8.9 D (8.4-10.2) mg/dL Adrenal panel 01/05/21 Range/Units 07:22 Sodium 134 L (137-145) mmol/L Potassium 4.4 D (3.6-5.0) mmol/L Chloride 93.3 L (98-107) mmol/L Carbon Dioxide 22 (22-30) mmol/L BUN 77 H (9-20) mg/dL Creatinine 4.2 H (0.8-1.3) mg/dL Glucose 105 H (75-100) mg/dL Calcium 8.9 D (8.4-10.2) mg/dL
--- NOTE | 2021-01-05 14:08 | Progress Note ---
Assessment and Plan 60 y/o male with abdominal catastrophe, s/p ex-lap with open abdomen, ventilated for pain control and support. 01/05/21: HD per renal. Continue precedex to help with weaning off sedation. Tolerates PRN pushes of fentanyl. Will repeat ABG and CXR post HD and then attempt to wean FiO2 back down. Prognosis remains guarded. May end up with trach. Continue to try to wean. 01/04/21: HD per renal. Will try PRecedex therapy to see if we can wean off some sedation. Told RT ok to start weaning PEEP. spoke with surgery. Will clamp NG tube and check residuals, if low, will start tube feeding. Guarded prognosis. NO steroids for anything. 01/03/21: Really need volume off. Vasopressors ordered and can be used to help with volume removal as patient has anasarca. Not sure that we would be able to successfully extubate if volume is not removed. Not ready for SBT as he is still requiring a decent amount of support. Would like PEEP at 6 and FiO2 at 40-45% or lower. Will speak with renal about HD again today for volume removal with pressor support to help with this. Continue TPN until gut ready for use. Absolutely no steroids. Guarded prognosis. Patient may need PRBC's, this could be transfused with HD, may help with volume removal. 01/02/21: Now, will start to wean sedation. Continue to wean FiO2 but do not wean PEEP until FiO2 is down to about 40%. Spoke with renal who will dialyze p atient today. electrolyte imbalances will be managed by them as well. Abx therapy per ID. Will continue to follow. Guarded prognosis. 12/30/20: No steroids given new anastomosis. Discussed with surgery. Continue sedation and pain control until abdomen is closed. Appears to have metabolic acidosis and some volume overload so feel he would benefit from HD today, will ask renal about this. Electrolyte imbalances should be managed by HD. Guarded to poor prognosis. 12/29/20: Continue all supportive measures. Maintain adequate sedation and pain control given open abdomen. HD per renal, catheter in place. Wean Pressors for MAPS >65. Prognosis still remains guarded to poor. 12/27/20: Agree with bicarb drip. Will go ahead and place vascath today. Will obtain consent and place, likely in groin. Back on pressors unfortunately but much lower doses. Got 3 doses of steroids on yesterday. May have helped. Will discuss with pharmacy and determine the risk benefit ration of continuing. Continue abx therapy as per ID. overall prognosis is very very guarded to poor. 12/26/20: Needs more hydration. Appreciate renal help but will bolus several liters today as I feel the patient is very volume deplete and with persistent fever we have insensible losses as well. Continue TPN. OR today. Wean pressors for MAPs greater than 65. Follow up triglyceride level. Some hypotension is likely related to amount of sedation required to maintain rass of -4. If third agent is needed, could use precedex, ativan etc..Guarded prognosis. 12/25/20: Down to 14 on Levo now. Fluid appears to have helped. Renal following so will defer further bolus types to them but would recommend more fluid. Continue sedation at current level. TPN for nutrition. Plans for return to OR on Saturday. Continue all supportive measures. 12/24/20: Adequate sedation to maintain RASS of -4. BP support as needed with pressors. Will give more fluid today. Renal function improving. Agree with D5W but Na will be corrected in TPN as well. TPN per nutrition. Supportive care. 1. Adequate sedation to RASS of -4 2 Support BP with meds as needed 3. Aggressive hydration 4. Follow up surgery recs. cct 31 minutes. Subjective Date of service: 01/05/21 Principal diagnosis: SBO and necrosis of large part of small intestine Interval history: Acute episode of desaturation today. had to be placed on 100%. Picc line also placed as IJ not drawing back anymore. Failed SBT earlier. High residuals on clamped NGT Objective Vital Signs - 12hr 01/05/21 01/05/21 01/05/21 02:30 03:00 03:30 Temperature Pulse Rate 74 73 73 Respiratory 28 H 28 H 28 H Rate Blood Pressure 112/55 112/55 110/53 O2 Sat by Pulse 96 97 Oximetry O2 Sat by Pulse Oximetry [ Anterior Bilateral Throughout] 01/05/21 01/05/21 01/05/21 03:45 04:00 04:02 Temperature 98.1 F Pulse Rate 102 H 101 H Respiratory 34 H Rate Blood Pressure 117/61 181/81 O2 Sat by Pulse 90 96 Oximetry O2 Sat by Pulse Oximetry [ Anterior Bilateral Throughout] 01/05/21 01/05/21 01/05/21 04:30 05:01 05:30 Temperature Pulse Rate 105 H 90 91 H Respiratory 34 H 17 23 Rate Blood Pressure 117/61 127/70 136/80 O2 Sat by Pulse 88 90 87 Oximetry O2 Sat by Pulse Oximetry [ Anterior Bilateral Throughout] 01/05/21 01/05/21 01/05/21 06:00 06:30 07:00 Temperature Pulse Rate 82 105 H 100 H Respiratory 20 40 H 31 H Rate Blood Pressure 122/59 95/66 121/64 O2 Sat by Pulse 91 84 93 Oximetry O2 Sat by Pulse Oximetry [ Anterior Bilateral Throughout] 01/05/21 01/05/21 01/05/21 07:18 07:20 07:30 Temperature 98.8 F Pulse Rate 98 H 95 H Respiratory 28 H Rate Blood Pressure 158/87 129/67 O2 Sat by Pulse 93 91 Oximetry O2 Sat by Pulse Oximetry [ Anterior Bilateral Throughout] 01/05/21 01/05/21 01/05/21 08:00 08:30 09:00 Temperature 98.8 F Pulse Rate 92 H 78 102 H Respiratory 21 28 H 24 Rate Blood Pressure 129/70 112/56 166/81 O2 Sat by Pulse 91 98 97 Oximetry O2 Sat by Pulse Oximetry [ Anterior Bilateral Throughout] 01/05/21 01/05/21 01/05/21 09:30 10:00 10:15 Temperature 98.7 F Pulse Rate 81 79 96 H Respiratory 19 20 Rate Blood Pressure 136/68 123/56 155/83 O2 Sat by Pulse 97 Oximetry O2 Sat by Pulse 99 Oximetry [ Anterior Bilateral Throughout] 01/05/21 01/05/21 01/05/21 10:30 10:45 11:00 Temperature Pulse Rate 96 H 95 H 100 H Respiratory 26 H 20 Rate Blood Pressure 155/83 149/85 149/85 O2 Sat by Pulse 99 98 Oximetry O2 Sat by Pulse Oximetry [ Anterior Bilateral Throughout] 01/05/21 01/05/21 01/05/21 11:15 11:26 11:27 Temperature 98.5 F Pulse Rate 96 H 99 H Respiratory Rate Blood Pressure 121/57 121/57 O2 Sat by Pulse 99 Oximetry O2 Sat by Pulse Oximetry [ Anterior Bilateral Throughout] 01/05/21 01/05/21 01/05/21 11:30 11:45 12:00 Temperature Pulse Rate 99 H 96 H 95 H Respiratory 21 20 Rate Blood Pressure 156/78 121/63 129/63 O2 Sat by Pulse 91 98 Oximetry O2 Sat by Pulse Oximetry [ Anterior Bilateral Throughout] 01/05/21 01/05/21 01/05/21 12:16 12:30 12:31 Temperature Pulse Rate 81 91 H 95 H Respiratory 23 Rate Blood Pressure 118/55 131/90 131/90 O2 Sat by Pulse 97 Oximetry O2 Sat by Pulse Oximetry [ Anterior Bilateral Throughout] 01/05/21 01/05/21 01/05/21 12:45 13:00 13:15 Temperature Pulse Rate 79 76 85 Respiratory 19 Rate Blood Pressure 137/80 137/80 193/91 O2 Sat by Pulse 89 Oximetry O2 Sat by Pulse Oximetry [ Anterior Bilateral Throughout] 01/05/21 13:51 Temperature 98.5 F Pulse Rate 88 Respiratory 24 Rate Blood Pressure 193/91 O2 Sat by Pulse Oximetry O2 Sat by Pulse Oximetry [ Anterior Bilateral Throughout] Constitutional: other (critically ill on ventilator) Eyes: non-icteric ENT: oropharynx moist Neck: supple Effort: normal Ascultation: Bilateral: other (coarse BS bilaterally) Cardiovascular: other (tachy, RR; no mrg) Gastrointestinal: other (abdomen open) Integumentary: normal Extremities: no cyanosis, no edema, pink and warm Neurologic: other (sedated) CBC and BMP: 01/05/21 07:22 01/05/21 07:22 ABG, PT/INR, D-dimer: ABG ABG pH 7.390 pH Units (7.350-7.450) 01/05/21 03:50 POC ABG pCO2 33.1 mmHg (32.0-48.0) 01/04/21 03:12 ABG pCO2 37.9 mm Hg 01/05/21 03:50 POC ABG pO2 72.2 mmHg (83-108) L 01/04/21 03:12 ABG pO2 136.8 mm Hg (80.0-90.0) H 01/05/21 03:50 POC ABG HCO3 23.2 01/04/21 03:12 ABG O2 Saturation 98.6 % (95.0-99.0) 01/05/21 03:50 Abnormal lab findings: Abnormal Labs 12/20/20 12/20/20 12/20/20 13:58 13:58 13:58 WBC 41.1 H* RBC 5.59 H Hgb 16.2 H Hct 47.7 H MCHC RDW 15.5 H Plt Count 486 H Seg Neuts % (Manual) Lymphocytes % (Manual) Seg Neutrophils # Man Lymphocytes # (Manual) Monocytes # (Manual) APTT ABG pH POC ABG pCO2 POC ABG pO2 ABG pO2 ABG Base Excess ABG Hemoglobin ABG Oxyhemoglobin ABG Sodium ABG Potassium ABG Chloride ABG Glucose Carboxyhemoglobin Sodium 130 L Potassium Chloride 80.7 L Carbon Dioxide BUN 37 H Creatinine Glucose 101 H POC Glucose Lactic Acid 3.20 H* Calcium Ionized Calcium Phosphorus Magnesium AST Alkaline Phosphatase 142 H Total Protein 6.2 L Albumin 2.2 L Triglycerides Arterial Blood Glucose Arterial Blood Ionized Calcium Urine Creatinine Crossmatch 12/20/20 12/20/20 12/20/20 13:58 20:35 21:30 WBC RBC Hgb Hct MCHC RDW Plt Count Seg Neuts % (Manual) Lymphocytes % (Manual) Seg Neutrophils # Man Lymphocytes # (Manual) Monocytes # (Manual) APTT 49.4 H ABG pH 7.313 L POC ABG pCO2 POC ABG pO2 ABG pO2 104.4 H ABG Base Excess ABG Hemoglobin ABG Oxyhemoglobin ABG Sodium ABG Potassium ABG Chloride ABG Glucose Carboxyhemoglobin Sodium Potassium Chloride Carbon Dioxide BUN Creatinine Glucose POC Glucose 122 H Lactic Acid Calcium Ionized Calcium Phosphorus Magnesium AST Alkaline Phosphatase Total Protein Albumin Triglycerides Arterial Blood Glucose Arterial Blood Ionized Calcium Urine Creatinine Crossmatch 12/21/20 12/21/20 12/21/20 03:06 08:14 08:14 WBC 23.9 H RBC Hgb Hct MCHC RDW 15.7 H Plt Count Seg Neuts % (Manual) 91.0 H Lymphocytes % (Manual) 3.0 L Seg Neutrophils # Man 21.7 H Lymphocytes # (Manual) 0.7 L Monocytes # (Manual) 1.4 H APTT ABG pH 7.464 H POC ABG pCO2 POC ABG pO2 202.9 H ABG pO2 ABG Base Excess ABG Hemoglobin ABG Oxyhemoglobin ABG Sodium 133.7 L ABG Potassium ABG Chloride ABG Glucose 122 H Carboxyhemoglobin Sodium Potassium Chloride Carbon Dioxide BUN 46 H Creatinine Glucose 103 H POC Glucose Lactic Acid Calcium 6.6 L D Ionized Calcium Phosphorus Magnesium AST Alkaline Phosphatase Total Protein 5.4 L Albumin 2.3 L Triglycerides Arterial Blood Glucose 122 H Arterial Blood Ionized Calcium 3.5 L Urine Creatinine Crossmatch 12/21/20 12/21/20 12/22/20 17:18 21:28 04:45 WBC 22.9 H RBC Hgb Hct MCHC RDW 15.7 H Plt Count Seg Neuts % (Manual) Lymphocytes % (Manual) Seg Neutrophils # Man Lymphocytes # (Manual) Monocytes # (Manual) APTT ABG pH POC ABG pCO2 POC ABG pO2 ABG pO2 ABG Base Excess ABG Hemoglobin ABG Oxyhemoglobin ABG Sodium ABG Potassium ABG Chloride ABG Glucose Carboxyhemoglobin Sodium Potassium Chloride Carbon Dioxide BUN Creatinine Glucose POC Glucose 108 H Lactic Acid Calcium Ionized Calcium 4.1 L Phosphorus Magnesium AST Alkaline Phosphatase Total Protein Albumin Triglycerides Arterial Blood Glucose Arterial Blood Ionized Calcium Urine Creatinine Crossmatch 12/22/20 12/22/20 12/22/20 04:45 05:00 11:38 WBC RBC Hgb Hct MCHC RDW Plt Count Seg Neuts % (Manual) Lymphocytes % (Manual) Seg Neutrophils # Man Lymphocytes # (Manual) Monocytes # (Manual) APTT ABG pH 7.462 H POC ABG pCO2 POC ABG pO2 ABG pO2 ABG Base Excess ABG Hemoglobin ABG Oxyhemoglobin ABG Sodium ABG Potassium ABG Chloride ABG Glucose 118 H Carboxyhemoglobin Sodium 146 H Potassium Chloride Carbon Dioxide BUN 45 H Creatinine Glucose 116 H POC Glucose 115 H Lactic Acid Calcium 6.9 L Ionized Calcium Phosphorus Magnesium AST Alkaline Phosphatase Total Protein Albumin Triglycerides Arterial Blood Glucose 118 H Arterial Blood Ionized Calcium 3.8 L Urine Creatinine Crossmatch 12/22/20 12/23/20 12/23/20 23:26 04:43 04:45 WBC 22.2 H RBC Hgb Hct MCHC RDW 16.1 H Plt Count Seg Neuts % (Manual) Lymphocytes % (Manual) Seg Neutrophils # Man Lymphocytes # (Manual) Monocytes # (Manual) APTT ABG pH POC ABG pCO2 POC ABG pO2 ABG pO2 ABG Base Excess ABG Hemoglobin ABG Oxyhemoglobin ABG Sodium 147.4 H ABG Potassium ABG Chloride 112.0 H ABG Glucose 130 H Carboxyhemoglobin 0.4 L Sodium Potassium Chloride Carbon Dioxide BUN Creatinine Glucose POC Glucose 110 H Lactic Acid Calcium Ionized Calcium Phosphorus Magnesium AST Alkaline Phosphatase Total Protein Albumin Triglycerides Arterial Blood Glucose 130 H Arterial Blood Ionized Calcium 3.8 L Urine Creatinine Crossmatch 12/23/20 12/23/20 12/23/20 04:45 05:17 11:22 WBC RBC Hgb Hct MCHC RDW Plt Count Seg Neuts % (Manual) Lymphocytes % (Manual) Seg Neutrophils # Man Lymphocytes # (Manual) Monocytes # (Manual) APTT ABG pH POC ABG pCO2 POC ABG pO2 ABG pO2 ABG Base Excess ABG Hemoglobin ABG Oxyhemoglobin ABG Sodium ABG Potassium ABG Chloride ABG Glucose Carboxyhemoglobin Sodium 154 H D Potassium Chloride 110.9 H Carbon Dioxide BUN 54 H Creatinine 1.8 H Glucose 115 H POC Glucose 116 H 130 H Lactic Acid Calcium 7.0 L Ionized Calcium Phosphorus Magnesium AST Alkaline Phosphatase Total Protein Albumin Triglycerides Arterial Blood Glucose Arterial Blood Ionized Calcium Urine Creatinine Crossmatch 12/23/20 12/23/20 12/23/20 12:15 12:15 23:15 WBC RBC Hgb Hct MCHC RDW Plt Count Seg Neuts % (Manual) Lymphocytes % (Manual) Seg Neutrophils # Man Lymphocytes # (Manual) Monocytes # (Manual) APTT ABG pH POC ABG pCO2 POC ABG pO2 ABG pO2 ABG Base Excess ABG Hemoglobin ABG Oxyhemoglobin ABG Sodium ABG Potassium ABG Chloride ABG Glucose Carboxyhemoglobin Sodium 154 H Potassium Chloride Carbon Dioxide BUN Creatinine 1.5 H Glucose POC Glucose 132 H Lactic Acid Calcium Ionized Calcium Phosphorus Magnesium AST Alkaline Phosphatase Total Protein Albumin Triglycerides Arterial Blood Glucose Arterial Blood Ionized Calcium Urine Creatinine 78.1 H Crossmatch 12/24/20 12/24/20 12/24/20 04:19 04:30 04:30 WBC 18.3 H RBC Hgb Hct MCHC RDW 16.5 H Plt Count Seg Neuts % (Manual) Lymphocytes % (Manual) Seg Neutrophils # Man Lymphocytes # (Manual) Monocytes # (Manual) APTT ABG pH POC ABG pCO2 POC ABG pO2 ABG pO2 ABG Base Excess ABG Hemoglobin ABG Oxyhemoglobin ABG Sodium 149.7 H ABG Potassium ABG Chloride 116.0 H ABG Glucose 180 H Carboxyhemoglobin Sodium 155 H Potassium Chloride 116.1 H Carbon Dioxide BUN 52 H Creatinine 1.5 H Glucose 175 H POC Glucose Lactic Acid Calcium 6.8 L Ionized Calcium Phosphorus Magnesium 3.00 H AST Alkaline Phosphatase Total Protein 5.7 L Albumin 1.8 L Triglycerides Arterial Blood Glucose 180 H Arterial Blood Ionized Calcium 3.7 L Urine Creatinine Crossmatch 12/24/20 12/24/20 12/24/20 05:24 11:21 18:05 WBC RBC Hgb Hct MCHC RDW Plt Count Seg Neuts % (Manual) Lymphocytes % (Manual) Seg Neutrophils # Man Lymphocytes # (Manual) Monocytes # (Manual) APTT ABG pH POC ABG pCO2 POC ABG pO2 ABG pO2 ABG Base Excess ABG Hemoglobin ABG Oxyhemoglobin ABG Sodium ABG Potassium ABG Chloride ABG Glucose Carboxyhemoglobin Sodium Potassium Chloride Carbon Dioxide BUN Creatinine Glucose POC Glucose 153 H 154 H 133 H Lactic Acid Calcium Ionized Calcium Phosphorus Magnesium AST Alkaline Phosphatase Total Protein Albumin Triglycerides Arterial Blood Glucose Arterial Blood Ionized Calcium Urine Creatinine Crossmatch 12/25/20 12/25/20 12/25/20 04:00 07:00 07:00 WBC 17.6 H RBC Hgb Hct MCHC 31 L RDW 16.0 H Plt Count Seg Neuts % (Manual) Lymphocytes % (Manual) Seg Neutrophils # Man Lymphocytes # (Manual) Monocytes # (Manual) APTT ABG pH POC ABG pCO2 POC ABG pO2 ABG pO2 ABG Base Excess ABG Hemoglobin ABG Oxyhemoglobin ABG Sodium 152.5 H ABG Potassium ABG Chloride 119.0 H ABG Glucose 136 H Carboxyhemoglobin Sodium Potassium Chloride Carbon Dioxide BUN Creatinine Glucose POC Glucose Lactic Acid Calcium Ionized Calcium Phosphorus Magnesium 2.70 H AST Alkaline Phosphatase Total Protein Albumin Triglycerides Arterial Blood Glucose 136 H Arterial Blood Ionized Calcium 3.7 L Urine Creatinine Crossmatch 12/25/20 12/25/20 12/25/20 07:00 11:24 16:32 WBC RBC Hgb Hct MCHC RDW Plt Count Seg Neuts % (Manual) Lymphocytes % (Manual) Seg Neutrophils # Man Lymphocytes # (Manual) Monocytes # (Manual) APTT ABG pH POC ABG pCO2 POC ABG pO2 ABG pO2 ABG Base Excess ABG Hemoglobin ABG Oxyhemoglobin ABG Sodium ABG Potassium ABG Chloride ABG Glucose Carboxyhemoglobin Sodium 156 H Potassium Chloride 118.0 H Carbon Dioxide BUN 44 H Creatinine 1.7 H Glucose 126 H POC Glucose 110 H 126 H Lactic Acid Calcium 6.9 L Ionized Calcium Phosphorus Magnesium AST Alkaline Phosphatase Total Protein Albumin Triglycerides Arterial Blood Glucose Arterial Blood Ionized Calcium Urine Creatinine Crossmatch 12/25/20 12/25/20 12/26/20 18:18 23:23 03:30 WBC RBC Hgb Hct MCHC RDW Plt Count Seg Neuts % (Manual) Lymphocytes % (Manual) Seg Neutrophils # Man Lymphocytes # (Manual) Monocytes # (Manual) APTT ABG pH POC ABG pCO2 POC ABG pO2 ABG pO2 ABG Base Excess ABG Hemoglobin 11.8 L ABG Oxyhemoglobin ABG Sodium ABG Potassium 4.7 H ABG Chloride 114.0 H ABG Glucose 132 H Carboxyhemoglobin Sodium 151 H Potassium Chloride 114.3 H Carbon Dioxide BUN 51 H Creatinine 2.6 H D Glucose 122 H POC Glucose 115 H Lactic Acid Calcium 6.4 L Ionized Calcium Phosphorus Magnesium AST Alkaline Phosphatase Total Protein Albumin Triglycerides Arterial Blood Glucose 132 H Arterial Blood Ionized Calcium 3.6 L Urine Creatinine Crossmatch 12/26/20 12/26/20 12/26/20 04:55 06:01 06:01 WBC 21.6 H RBC Hgb Hct MCHC 31 L RDW 16.5 H Plt Count 136 L Seg Neuts % (Manual) Lymphocytes % (Manual) Seg Neutrophils # Man Lymphocytes # (Manual) Monocytes # (Manual) APTT ABG pH POC ABG pCO2 POC ABG pO2 ABG pO2 ABG Base Excess ABG Hemoglobin ABG Oxyhemoglobin ABG Sodium ABG Potassium ABG Chloride ABG Glucose Carboxyhemoglobin Sodium 173 H* D Potassium 6.1 H* D Chloride 137.0 H Carbon Dioxide BUN 73 H Creatinine 3.8 H Glucose 125 H POC Glucose 112 H Lactic Acid Calcium 6.2 L Ionized Calcium Phosphorus 5.70 H D Magnesium 2.90 H AST Alkaline Phosphatase Total Protein Albumin Triglycerides Arterial Blood Glucose Arterial Blood Ionized Calcium Urine Creatinine Crossmatch 12/26/20 12/26/20 12/26/20 08:33 11:19 22:00 WBC RBC Hgb Hct MCHC RDW Plt Count Seg Neuts % (Manual) Lymphocytes % (Manual) Seg Neutrophils # Man Lymphocytes # (Manual) Monocytes # (Manual) APTT ABG pH POC ABG pCO2 POC ABG pO2 ABG pO2 ABG Base Excess ABG Hemoglobin ABG Oxyhemoglobin ABG Sodium ABG Potassium ABG Chloride ABG Glucose Carboxyhemoglobin Sodium 147 H D Potassium 5.8 H D Chloride 108.8 H Carbon Dioxide 21 L BUN 68 H 68 H Creatinine 3.8 H 4.1 H Glucose 144 H 154 H POC Glucose 144 H Lactic Acid Calcium 6.5 L 5.8 L* Ionized Calcium Phosphorus Magnesium AST 215 H Alkaline Phosphatase Total Protein 4.7 L Albumin 1.5 L Triglycerides Arterial Blood Glucose Arterial Blood Ionized Calcium Urine Creatinine Crossmatch 12/26/20 12/26/20 12/27/20 23:13 Unknown 00:25 WBC RBC Hgb 11.1 L Hct MCHC RDW Plt Count Seg Neuts % (Manual) Lymphocytes % (Manual) Seg Neutrophils # Man Lymphocytes # (Manual) Monocytes # (Manual) APTT ABG pH POC ABG pCO2 POC ABG pO2 ABG pO2 ABG Base Excess ABG Hemoglobin ABG Oxyhemoglobin ABG Sodium ABG Potassium ABG Chloride ABG Glucose Carboxyhemoglobin Sodium Potassium Chloride Carbon Dioxide BUN Creatinine Glucose POC Glucose 163 H Lactic Acid Calcium Ionized Calcium Phosphorus 5.60 H Magnesium AST Alkaline Phosphatase Total Protein Albumin Triglycerides Arterial Blood Glucose Arterial Blood Ionized Calcium Urine Creatinine Crossmatch 12/27/20 12/27/20 12/27/20 02:57 04:15 04:15 WBC 28.5 H RBC Hgb 11.2 L Hct MCHC 31 L RDW 16.5 H Plt Count 130 L Seg Neuts % (Manual) Lymphocytes % (Manual) Seg Neutrophils # Man Lymphocytes # (Manual) Monocytes # (Manual) APTT ABG pH 7.238 L POC ABG pCO2 POC ABG pO2 139.1 H ABG pO2 ABG Base Excess ABG Hemoglobin 11.2 L ABG Oxyhemoglobin ABG Sodium 133.8 L ABG Potassium 5.2 H ABG Chloride ABG Glucose 182 H Carboxyhemoglobin Sodium 136 L Potassium 6.0 H Chloride Carbon Dioxide 18 L BUN 68 H Creatinine 4.1 H Glucose 166 H POC Glucose Lactic Acid Calcium 6.2 L Ionized Calcium Phosphorus 7.30 H D Magnesium AST Alkaline Phosphatase Total Protein Albumin Triglycerides 164 H Arterial Blood Glucose 182 H Arterial Blood Ionized Calcium 3.4 L Urine Creatinine Crossmatch 12/27/20 12/27/20 12/27/20 04:50 10:51 11:17 WBC RBC Hgb Hct MCHC RDW Plt Count Seg Neuts % (Manual) Lymphocytes % (Manual) Seg Neutrophils # Man Lymphocytes # (Manual) Monocytes # (Manual) APTT ABG pH POC ABG pCO2 POC ABG pO2 ABG pO2 ABG Base Excess ABG Hemoglobin ABG Oxyhemoglobin ABG Sodium ABG Potassium ABG Chloride ABG Glucose Carboxyhemoglobin Sodium Potassium Chloride Carbon Dioxide BUN Creatinine Glucose POC Glucose 140 H 113 H 154 H Lactic Acid Calcium Ionized Calcium Phosphorus Magnesium AST Alkaline Phosphatase Total Protein Albumin Triglycerides Arterial Blood Glucose Arterial Blood Ionized Calcium Urine Creatinine Crossmatch 12/27/20 12/27/20 12/27/20 12:40 14:40 23:17 WBC RBC Hgb Hct MCHC RDW Plt Count Seg Neuts % (Manual) Lymphocytes % (Manual) Seg Neutrophils # Man Lymphocytes # (Manual) Monocytes # (Manual) APTT ABG pH POC ABG pCO2 POC ABG pO2 ABG pO2 ABG Base Excess ABG Hemoglobin ABG Oxyhemoglobin ABG Sodium ABG Potassium ABG Chloride ABG Glucose Carboxyhemoglobin Sodium 135 L Potassium Chloride Carbon Dioxide 21 L BUN 62 H Creatinine 3.8 H Glucose 132 H POC Glucose 130 H Lactic Acid Calcium 5.6 L* Ionized Calcium 3.3 L Phosphorus Magnesium AST Alkaline Phosphatase Total Protein Albumin Triglycerides Arterial Blood Glucose Arterial Blood Ionized Calcium Urine Creatinine Crossmatch 12/28/20 12/28/20 12/28/20 05:36 07:08 07:28 WBC 27.2 H RBC 3.50 L Hgb 9.6 L Hct 30.8 L MCHC 31 L RDW 16.1 H Plt Count 111 L Seg Neuts % (Manual) 95.0 H Lymphocytes % (Manual) Seg Neutrophils # Man 25.8 H Lymphocytes # (Manual) 0.0 L Monocytes # (Manual) 1.1 H APTT ABG pH 7.200 L POC ABG pCO2 POC ABG pO2 67.2 L ABG pO2 ABG Base Excess ABG Hemoglobin 10.3 L ABG Oxyhemoglobin 89.6 L ABG Sodium 127.8 L ABG Potassium 5.1 H ABG Chloride ABG Glucose 132 H Carboxyhemoglobin 0.4 L Sodium Potassium Chloride Carbon Dioxide BUN Creatinine Glucose POC Glucose 128 H Lactic Acid Calcium Ionized Calcium Phosphorus Magnesium AST Alkaline Phosphatase Total Protein Albumin Triglycerides Arterial Blood Glucose 132 H Arterial Blood Ionized Calcium 3.5 L Urine Creatinine Crossmatch 12/28/20 12/28/20 12/28/20 07:28 11:37 13:25 WBC RBC Hgb Hct MCHC RDW Plt Count Seg Neuts % (Manual) Lymphocytes % (Manual) Seg Neutrophils # Man Lymphocytes # (Manual) Monocytes # (Manual) APTT ABG pH POC ABG pCO2 POC ABG pO2 ABG pO2 ABG Base Excess ABG Hemoglobin ABG Oxyhemoglobin ABG Sodium ABG Potassium ABG Chloride ABG Glucose Carboxyhemoglobin Sodium 131 L 133 L Potassium 5.9 H 5.1 H Chloride 97.1 L Carbon Dioxide 15 L 21 L BUN 70 H 77 H Creatinine 4.0 H 4.4 H Glucose 118 H 140 H POC Glucose 135 H Lactic Acid Calcium 6.3 L 6.3 L Ionized Calcium Phosphorus 7.10 H Magnesium AST 144 H Alkaline Phosphatase Total Protein 4.8 L Albumin 1.3 L Triglycerides Arterial Blood Glucose Arterial Blood Ionized Calcium Urine Creatinine Crossmatch 12/28/20 12/28/20 12/29/20 16:38 23:28 03:08 WBC RBC Hgb Hct MCHC RDW Plt Count Seg Neuts % (Manual) Lymphocytes % (Manual) Seg Neutrophils # Man Lymphocytes # (Manual) Monocytes # (Manual) APTT ABG pH 7.301 L POC ABG pCO2 POC ABG pO2 151.1 H ABG pO2 ABG Base Excess ABG Hemoglobin 8.7 L ABG Oxyhemoglobin 98.2 H ABG Sodium 123.4 L ABG Potassium ABG Chloride 97.0 L ABG Glucose 144 H Carboxyhemoglobin Sodium Potassium Chloride Carbon Dioxide BUN Creatinine Glucose POC Glucose 140 H 134 H Lactic Acid Calcium Ionized Calcium Phosphorus Magnesium AST Alkaline Phosphatase Total Protein Albumin Triglycerides Arterial Blood Glucose 144 H Arterial Blood Ionized Calcium 3.4 L Urine Creatinine Crossmatch 12/29/20 12/29/20 12/29/20 05:20 05:20 06:01 WBC 21.0 H RBC 2.89 L Hgb 8.1 L Hct 25.5 L MCHC RDW 16.1 H Plt Count 124 L Seg Neuts % (Manual) Lymphocytes % (Manual) Seg Neutrophils # Man Lymphocytes # (Manual) Monocytes # (Manual) APTT ABG pH POC ABG pCO2 POC ABG pO2 ABG pO2 ABG Base Excess ABG Hemoglobin ABG Oxyhemoglobin ABG Sodium ABG Potassium ABG Chloride ABG Glucose Carboxyhemoglobin Sodium 131 L Potassium Chloride 93.4 L Carbon Dioxide BUN 79 H Creatinine 4.7 H Glucose 122 H POC Glucose 108 H Lactic Acid Calcium 5.5 L* Ionized Calcium Phosphorus 5.70 H Magnesium 1.60 L AST Alkaline Phosphatase Total Protein Albumin Triglycerides Arterial Blood Glucose Arterial Blood Ionized Calcium Urine Creatinine Crossmatch 12/29/20 12/29/20 12/29/20 10:04 11:27 17:31 WBC RBC Hgb Hct MCHC RDW Plt Count Seg Neuts % (Manual) Lymphocytes % (Manual) Seg Neutrophils # Man Lymphocytes # (Manual) Monocytes # (Manual) APTT ABG pH POC ABG pCO2 POC ABG pO2 ABG pO2 ABG Base Excess ABG Hemoglobin ABG Oxyhemoglobin ABG Sodium ABG Potassium ABG Chloride ABG Glucose Carboxyhemoglobin Sodium Potassium Chloride Carbon Dioxide BUN Creatinine Glucose POC Glucose 107 H 112 H 110 H Lactic Acid Calcium Ionized Calcium Phosphorus Magnesium AST Alkaline Phosphatase Total Protein Albumin Triglycerides Arterial Blood Glucose Arterial Blood Ionized Calcium Urine Creatinine Crossmatch 12/30/20 12/30/20 12/30/20 03:31 08:06 17:39 WBC RBC Hgb Hct MCHC RDW Plt Count Seg Neuts % (Manual) Lymphocytes % (Manual) Seg Neutrophils # Man Lymphocytes # (Manual) Monocytes # (Manual) APTT ABG pH 7.261 L POC ABG pCO2 POC ABG pO2 123.1 H ABG pO2 ABG Base Excess ABG Hemoglobin 8.7 L ABG Oxyhemoglobin ABG Sodium 123.2 L ABG Potassium ABG Chloride 96.0 L ABG Glucose 112 H Carboxyhemoglobin Sodium 128 L Potassium Chloride 90.7 L Carbon Dioxide 21 L BUN 86 H Creatinine 4.9 H Glucose 107 H POC Glucose 134 H Lactic Acid Calcium 6.2 L Ionized Calcium Phosphorus 5.30 H Magnesium 1.50 L AST Alkaline Phosphatase Total Protein Albumin Triglycerides Arterial Blood Glucose 112 H Arterial Blood Ionized Calcium 3.2 L Urine Creatinine Crossmatch 12/30/20 12/31/20 12/31/20 22:45 02:14 04:40 WBC RBC Hgb Hct MCHC RDW Plt Count Seg Neuts % (Manual) Lymphocytes % (Manual) Seg Neutrophils # Man Lymphocytes # (Manual) Monocytes # (Manual) APTT ABG pH 7.267 L POC ABG pCO2 POC ABG pO2 ABG pO2 ABG Base Excess ABG Hemoglobin 8.0 L ABG Oxyhemoglobin 93.7 L ABG Sodium ABG Potassium ABG Chloride 95.0 L ABG Glucose 108 H Carboxyhemoglobin 1.7 H Sodium 126 L Potassium Chloride 90.3 L Carbon Dioxide 20 L BUN 70 H Creatinine 4.3 H Glucose 209 H POC Glucose 109 H Lactic Acid Calcium 6.6 L Ionized Calcium Phosphorus 4.70 H Magnesium 1.60 L AST Alkaline Phosphatase Total Protein Albumin Triglycerides 157 H Arterial Blood Glucose 108 H Arterial Blood Ionized Calcium 3.7 L Urine Creatinine Crossmatch 12/31/20 12/31/20 01/01/21 16:23 23:21 04:00 WBC 18.0 H RBC 2.75 L Hgb 7.7 L Hct 23.9 L MCHC RDW 15.6 H Plt Count Seg Neuts % (Manual) 91.0 H Lymphocytes % (Manual) 6.0 L Seg Neutrophils # Man 16.4 H Lymphocytes # (Manual) 1.1 L Monocytes # (Manual) APTT ABG pH 7.264 L POC ABG pCO2 POC ABG pO2 74.8 L ABG pO2 ABG Base Excess ABG Hemoglobin 7.1 L ABG Oxyhemoglobin 92.1 L ABG Sodium 124.9 L ABG Potassium ABG Chloride 95.0 L ABG Glucose 111 H Carboxyhemoglobin 1.7 H Sodium Potassium Chloride Carbon Dioxide BUN Creatinine Glucose POC Glucose 125 H Lactic Acid Calcium Ionized Calcium Phosphorus Magnesium AST Alkaline Phosphatase Total Protein Albumin Triglycerides Arterial Blood Glucose 111 H Arterial Blood Ionized Calcium 4.0 L Urine Creatinine Crossmatch 01/01/21 01/01/21 01/01/21 05:50 13:41 15:55 WBC RBC Hgb Hct MCHC RDW Plt Count Seg Neuts % (Manual) Lymphocytes % (Manual) Seg Neutrophils # Man Lymphocytes # (Manual) Monocytes # (Manual) APTT ABG pH 7.148 L 7.207 L POC ABG pCO2 53.1 H POC ABG pO2 57.3 L 138.4 H ABG pO2 ABG Base Excess ABG Hemoglobin 9.0 L 8.3 L ABG Oxyhemoglobin 83.2 L ABG Sodium 126.2 L 124.5 L ABG Potassium ABG Chloride 95.0 L 95.0 L ABG Glucose 96 H 120 H Carboxyhemoglobin Sodium 131 L Potassium Chloride 93.3 L Carbon Dioxide 21 L BUN 67 H Creatinine 4.2 H Glucose POC Glucose Lactic Acid Calcium 7.1 L Ionized Calcium Phosphorus Magnesium AST 60 H Alkaline Phosphatase Total Protein 4.8 L Albumin 1.4 L Triglycerides Arterial Blood Glucose 96 H 120 H Arterial Blood Ionized Calcium 4.1 L 3.9 L Urine Creatinine Crossmatch 01/01/21 01/01/21 01/02/21 17:09 23:24 03:47 WBC RBC Hgb Hct MCHC RDW Plt Count Seg Neuts % (Manual) Lymphocytes % (Manual) Seg Neutrophils # Man Lymphocytes # (Manual) Monocytes # (Manual) APTT ABG pH 7.276 L POC ABG pCO2 POC ABG pO2 173.6 H ABG pO2 ABG Base Excess ABG Hemoglobin 7 L ABG Oxyhemoglobin ABG Sodium 122.4 L ABG Potassium ABG Chloride 94.0 L ABG Glucose 118 H Carboxyhemoglobin Sodium Potassium Chloride Carbon Dioxide BUN Creatinine Glucose POC Glucose 124 H 119 H Lactic Acid Calcium Ionized Calcium Phosphorus Magnesium AST Alkaline Phosphatase Total Protein Albumin Triglycerides Arterial Blood Glucose 118 H Arterial Blood Ionized Calcium 4.0 L Urine Creatinine Crossmatch 01/02/21 01/02/21 01/02/21 05:33 08:00 08:00 WBC 19.7 H RBC 2.53 L Hgb 7.1 L Hct 22.0 L MCHC RDW 16.4 H Plt Count Seg Neuts % (Manual) Lymphocytes % (Manual) Seg Neutrophils # Man Lymphocytes # (Manual) Monocytes # (Manual) APTT ABG pH POC ABG pCO2 POC ABG pO2 ABG pO2 ABG Base Excess ABG Hemoglobin ABG Oxyhemoglobin ABG Sodium ABG Potassium ABG Chloride ABG Glucose Carboxyhemoglobin Sodium 127 L Potassium Chloride 89.3 L Carbon Dioxide 19 L BUN 82 H Creatinine 5.0 H Glucose 103 H POC Glucose 107 H Lactic Acid Calcium 7.8 L Ionized Calcium Phosphorus 6.40 H Magnesium AST 47 H Alkaline Phosphatase Total Protein 5.0 L Albumin 1.6 L Triglycerides Arterial Blood Glucose Arterial Blood Ionized Calcium Urine Creatinine Crossmatch 01/02/21 01/03/21 01/03/21 17:25 07:56 09:47 WBC 17.7 H RBC 2.19 L Hgb 6.2 L Hct 18.5 L* MCHC RDW 16.1 H Plt Count Seg Neuts % (Manual) Lymphocytes % (Manual) Seg Neutrophils # Man Lymphocytes # (Manual) Monocytes # (Manual) APTT ABG pH POC ABG pCO2 POC ABG pO2 ABG pO2 ABG Base Excess ABG Hemoglobin ABG Oxyhemoglobin ABG Sodium ABG Potassium ABG Chloride ABG Glucose Carboxyhemoglobin Sodium 130 L Potassium 3.5 L Chloride 90.3 L Carbon Dioxide BUN 68 H Creatinine 3.9 H Glucose 103 H POC Glucose 116 H Lactic Acid Calcium 8.0 L Ionized Calcium Phosphorus 4.80 H D Magnesium AST Alkaline Phosphatase Total Protein Albumin Triglycerides Arterial Blood Glucose Arterial Blood Ionized Calcium Urine Creatinine Crossmatch 01/03/21 01/03/21 01/04/21 11:00 19:00 03:12 WBC 17.0 H RBC 2.51 L Hgb 7.1 L Hct 21.5 L MCHC RDW 16.6 H Plt Count Seg Neuts % (Manual) Lymphocytes % (Manual) Seg Neutrophils # Man Lymphocytes # (Manual) Monocytes # (Manual) APTT ABG pH 7.463 H POC ABG pCO2 POC ABG pO2 72.2 L ABG pO2 ABG Base Excess ABG Hemoglobin 6.2 L ABG Oxyhemoglobin 91.8 L ABG Sodium 128.4 L ABG Potassium 3.3 L ABG Chloride 96.0 L ABG Glucose 112 H Carboxyhemoglobin Sodium Potassium Chloride Carbon Dioxide BUN Creatinine Glucose POC Glucose Lactic Acid Calcium Ionized Calcium Phosphorus Magnesium AST Alkaline Phosphatase Total Protein Albumin Triglycerides Arterial Blood Glucose 112 H Arterial Blood Ionized Calcium 4.3 L Urine Creatinine Crossmatch See Detail 01/04/21 01/04/21 01/04/21 05:16 06:20 06:20 WBC 18.5 H RBC 2.53 L Hgb 7.4 L Hct 21.9 L MCHC RDW 15.8 H Plt Count Seg Neuts % (Manual) Lymphocytes % (Manual) Seg Neutrophils # Man Lymphocytes # (Manual) Monocytes # (Manual) APTT ABG pH POC ABG pCO2 POC ABG pO2 ABG pO2 ABG Base Excess ABG Hemoglobin ABG Oxyhemoglobin ABG Sodium ABG Potassium ABG Chloride ABG Glucose Carboxyhemoglobin Sodium 135 L Potassium Chloride 95.2 L Carbon Dioxide BUN 56 H Creatinine 3.2 H Glucose 109 H POC Glucose 123 H Lactic Acid Calcium 7.6 L Ionized Calcium Phosphorus Magnesium AST Alkaline Phosphatase Total Protein Albumin Triglycerides Arterial Blood Glucose Arterial Blood Ionized Calcium Urine Creatinine Crossmatch 01/05/21 01/05/21 01/05/21 03:50 07:22 07:22 WBC 23.8 H RBC 2.93 L Hgb 8.2 L Hct 25.1 L MCHC RDW 16.5 H Plt Count Seg Neuts % (Manual) Lymphocytes % (Manual) Seg Neutrophils # Man Lymphocytes # (Manual) Monocytes # (Manual) APTT ABG pH POC ABG pCO2 POC ABG pO2 ABG pO2 136.8 H ABG Base Excess -2.3 L ABG Hemoglobin 6.9 L ABG Oxyhemoglobin ABG Sodium ABG Potassium ABG Chloride ABG Glucose Carboxyhemoglobin Sodium 134 L Potassium Chloride 93.3 L Carbon Dioxide BUN 77 H Creatinine 4.2 H Glucose 105 H POC Glucose Lactic Acid Calcium Ionized Calcium Phosphorus 4.90 H D Magnesium AST Alkaline Phosphatase Total Protein Albumin Triglycerides Arterial Blood Glucose Arterial Blood Ionized Calcium Urine Creatinine Crossmatch
[2021-01-05] MEDS: FAMOTIDINE 20 MG/2 ML INJ IV SCH (14:11)
[2021-01-05] MEDS: FLUCONAZOLE 200 MG 200 MG/100 ML BAG IV SCH (14:11)
--- NOTE | 2021-01-05 14:23 | XRay Report ---
CHEST 1 VIEW INDICATION: Lt. Jugular central line/ shortness of breathe. COMPARISON: 01/01/2021 FINDINGS: Support devices: Endotracheal tube, nasogastric tube, left IJ venous catheter remain in the same posi tion. The left IJ central line appears to terminate in the left brachiocephalic vein. A right arm PIC C has been inserted which terminates at the cavoatrial junction. Heart: Stable and within normal limits. Lungs/Pleura: Diffuse bilateral lung opacities appear slightly improved since the previous exam. No c onsolidation, pleural effusion or pneumothorax is detected. Additional findings: None. IMPRESSION: Minimal improvement in the bilateral lung opacities. Signer Name: Kyle Ramirez Jr, MD Signed: 01/05/2021 2:10 PM Workstation Name: [id number]
--- NOTE | 2021-01-05 15:06 | Progress Note ---
Assessment and Plan Cultures: 12/20/2020 sputum culture: In process 12/20/2020 blood culture: No growth 12/20/2020 urine culture: Usual skin giorgio 12/20/2020 tracheal aspirate culture: Mucor A/P: 60-year-old male with obesity, hypertension, tobacco abuse, coronary artery disease, admitted to the hospital on 12/20/2020 with: #Septic shock: Secondary to intra-abdominal source, peritonitis. Patient with necrotic bowel secondary to incarcerated ventral hernia. Status post exploratory laparotomy, extensive adhesiolysis, small bowel resection and peritoneal lavage along with ABThera VAC placement on 12/20/2020, replacement 12/29/2020. Remains on 2x pressors. #JONI: Renally dose antibiotics. #Morbid obesity Recs: -continue renally dosed Zosyn. -continue Fluconazole 200 mg daily -Will continue antibiotics until 5 days post his final surgery pending clinical course -Believe Mucor in tracheal aspirate is a colonizer of the tube. Minimal immunosuppression with diabetes, otherwise none. Agree with avoidance of steroids. -Would consider repeat CT chest given worsening in white count. We will continue to follow. Priscilla Marie MD [facility] ([facility] O: [phone] F: [phone] Subjective Date of service: 01/05/21 Principal diagnosis: SBO and necrosis of large part of small intestine Interval history: Afebrile, white count remains elevated at 23.8 which is worsening. Imaging personally reviewed: Chest x-ray: Approximately same as previous. Objective - Exam Narrative Exam: Physical Exam: Constitutional: sedated, intubated, on the vent Head, Ears, Nose: Normocephalic, atraumatic. External ears, nose normal Eyes: Conjunctivae/corneas clear. No icterus. No ptosis. Neck: intubated Oral: intubated Cardiovascular: S1, S2 + Respiratory: AE fair bilaterally and equal GI: Woundvac in place Musculoskeletal: No pedal edema, no cyanosis. Skin: No rash or abscess Hem/Lymphatic: No palpable cervical or supraclavicular nodes. No lymphangitis Psych: no agitation Neurological: sedated, intubated, on the vent, exam limited - Constitutional Vitals: Vital Signs Temp Pulse Resp BP Pulse Ox 98.5 F 88 24 193/91 89 06/17/21 13:51 01/05/21 13:51 01/05/21 13:51 01/05/21 13:51 01/05/21 13:00 Temperature -Last 24 Hours Temperature 98.5 F Temperature 98.5 F Temperature 98.7 F Temperature 98.8 F Temperature 98.8 F Temperature 98.1 F Temperature 98.8 F Temperature 98.9 F Temperature 99.1 F - Labs CBC & Chem 7: 01/05/21 07:22 01/05/21 07:22 Labs: Abnormal lab results 01/03/21 01/04/21 01/05/21 Range/Units 11:00 03:12 03:50 WBC (4.5-11.0) K/mm3 RBC (3.65-5.03) M/mm3 Hgb (11.8-15.2) gm/dl Hct (35.5-45.6) % RDW (13.2-15.2) % POC ABG pO2 72.2 L (83-108) mmHg ABG pO2 136.8 H (80.0-90.0) mm Hg ABG Base Excess -2.3 L (-2.0-3.0) mmol/L ABG Hemoglobin 6.9 L (14.0-18.0) gm/dl ABG Oxyhemoglobin (94-98) ABG Sodium (136.0-145.0) mmol/L ABG Potassium (3.40-4.50) mmol/L ABG Chloride (98-107) mmol/L ABG Glucose (65-95) mg/dL Sodium (137-145) mmol/L Chloride (98-107) mmol/L BUN (9-20) mg/dL Creatinine (0.8-1.3) mg/dL Glucose (75-100) mg/dL Phosphorus (2.5-4.5) mg/dL Arterial Blood Glucose (65-95) mg/dL Arterial Blood Ionized Calcium (4.6-5.3) mg/dL Crossmatch See Detail 01/05/21 01/05/21 01/05/21 Range/Units 07:22 07:22 14:06 WBC 23.8 H (4.5-11.0) K/mm3 RBC 2.93 L (3.65-5.03) M/mm3 Hgb 8.2 L (11.8-15.2) gm/dl Hct 25.1 L (35.5-45.6) % RDW 16.5 H (13.2-15.2) % POC ABG pO2 332.3 H (83-108) mmHg ABG pO2 (80.0-90.0) mm Hg ABG Base Excess (-2.0-3.0) mmol/L ABG Hemoglobin 7.7 L (14.0-18.0) gm/dl ABG Oxyhemoglobin 98.7 H (94-98) ABG Sodium 131.0 L (136.0-145.0) mmol/L ABG Potassium 3.3 L (3.40-4.50) mmol/L ABG Chloride 97.0 L (98-107) mmol/L ABG Glucose 118 H (65-95) mg/dL Sodium 134 L (137-145) mmol/L Chloride 93.3 L (98-107) mmol/L BUN 77 H (9-20) mg/dL Creatinine 4.2 H (0.8-1.3) mg/dL Glucose 105 H (75-100) mg/dL Phosphorus 4.90 H D (2.5-4.5) mg/dL Arterial Blood Glucose 118 H (65-95) mg/dL Arterial Blood Ionized Calcium 4.4 L (4.6-5.3) mg/dL Crossmatch
--- NOTE | 2021-01-05 15:35 | Procedure Note ---
Date of procedure: 12/23/20 Pre-op diagnosis: Incarcerated ventral hernia, respiratory failure Post-op diagnosis: same Procedure: Arterial line placement due to need for invasive blood pressure monitoring Right radial sheldon inserted using sterile technique. Ulnar pulse palpable. Srini test completed. Area prepped with chlorhexidine and the site was infiltrated with 1ml 1% lidocaine. Arterial line was placed using palpitation of pulse; catheter advanced without difficulty. Line was sutured, biopatch placed and tegaderm dressing applied. Arm board placed. Arterial waveform observed on bedside monitor. Line flushed and zeroed. RN at bedside. Pt tolerated procedure well. Anesthesia: local Estimated blood loss: minimal Pathology: none Disposition: ICU
--- NOTE | 2021-01-05 15:59 | Progress Note ---
Assessment and Plan Impression * Acute kidney injury. * Incarcerated hernia with ischemic bowel. Status post bowel resection * Hypernatremia, now with hyponatremia * Sepsis * Respiratory failure, intubated * Hyperkalemia * Metabolic Acidosis, Gap * Hypoalbuminemia * Anemia Recommendations * Started HD 12/30 for worsening renal function, electrolyte abnormalities, and volume control * Seen during HD today, goal UF 2 L today * Hold IVF * Transfuse for hgb < 7 * TPN per nutrition/primary * Pressors prn to maintain MAP greater than 65 * Avoid nephrotoxins * Monitor fluid status and electrolytes * Strict I/O * Primary and consult notes reviewed Subjective Date of service: 01/05/21 Principal diagnosis: SBO and necrosis of large part of small intestine Interval history: Remains intubated. Agitated this morning. Seen during HD Objective - Exam Narrative Exam: General: Mild distress. Intubated HEENT: Oral mucosa moist Neck: Supple, no JVD Chest: Intubated, mechanical breath sounds Heart: RRR, S1 and S2, no pericardial rub Abdomen: Open abdomen Extremity: No peripheral cyanosis, edema Neurological: Unable to follow commands Dermatology: No skin rash Psych: Mild agitation Musculoskeletal: No joint effusion - Vital Signs Vital signs: Vital Signs - 12hr 01/05/21 01/05/21 01/05/21 04:00 04:02 04:30 Temperature Pulse Rate 102 H 101 H 105 H Respiratory 34 H 34 H Rate Blood Pressure 117/61 181/81 117/61 O2 Sat by Pulse 90 96 88 Oximetry O2 Sat by Pulse Oximetry [ Anterior Bilateral Throughout] 01/05/21 01/05/21 01/05/21 05:01 05:30 06:00 Temperature Pulse Rate 90 91 H 82 Respiratory 17 23 20 Rate Blood Pressure 127/70 136/80 122/59 O2 Sat by Pulse 90 87 91 Oximetry O2 Sat by Pulse Oximetry [ Anterior Bilateral Throughout] 01/05/21 01/05/21 01/05/21 06:30 07:00 07:18 Temperature Pulse Rate 105 H 100 H 98 H Respiratory 40 H 31 H Rate Blood Pressure 95/66 121/64 158/87 O2 Sat by Pulse 84 93 93 Oximetry O2 Sat by Pulse Oximetry [ Anterior Bilateral Throughout] 01/05/21 01/05/21 01/05/21 07:20 07:30 08:00 Temperature 98.8 F 98.8 F Pulse Rate 95 H 92 H Respiratory 28 H 21 Rate Blood Pressure 129/67 129/70 O2 Sat by Pulse 91 91 Oximetry O2 Sat by Pulse Oximetry [ Anterior Bilateral Throughout] 01/05/21 01/05/21 01/05/21 08:30 09:00 09:30 Temperature Pulse Rate 78 102 H 81 Respiratory 28 H 24 19 Rate Blood Pressure 112/56 166/81 136/68 O2 Sat by Pulse 98 97 97 Oximetry O2 Sat by Pulse Oximetry [ Anterior Bilateral Throughout] 01/05/21 01/05/21 01/05/21 10:00 10:15 10:30 Temperature 98.7 F Pulse Rate 79 96 H 96 H Respiratory 20 26 H Rate Blood Pressure 123/56 155/83 155/83 O2 Sat by Pulse 99 Oximetry O2 Sat by Pulse 99 Oximetry [ Anterior Bilateral Throughout] 01/05/21 01/05/21 01/05/21 10:45 11:00 11:15 Temperature Pulse Rate 95 H 100 H 96 H Respiratory 20 Rate Blood Pressure 149/85 149/85 121/57 O2 Sat by Pulse 98 Oximetry O2 Sat by Pulse Oximetry [ Anterior Bilateral Throughout] 01/05/21 01/05/21 01/05/21 11:26 11:27 11:30 Temperature 98.5 F Pulse Rate 99 H 99 H Respiratory 21 Rate Blood Pressure 121/57 156/78 O2 Sat by Pulse 99 91 Oximetry O2 Sat by Pulse Oximetry [ Anterior Bilateral Throughout] 01/05/21 01/05/21 01/05/21 11:45 12:00 12:16 Temperature Pulse Rate 96 H 95 H 81 Respiratory 20 Rate Blood Pressure 121/63 129/63 118/55 O2 Sat by Pulse 98 Oximetry O2 Sat by Pulse Oximetry [ Anterior Bilateral Throughout] 01/05/21 01/05/21 01/05/21 12:30 12:31 12:45 Temperature Pulse Rate 91 H 95 H 79 Respiratory 23 Rate Blood Pressure 131/90 131/90 137/80 O2 Sat by Pulse 97 Oximetry O2 Sat by Pulse Oximetry [ Anterior Bilateral Throughout] 01/05/21 01/05/21 01/05/21 13:00 13:15 13:30 Temperature Pulse Rate 76 85 77 Respiratory 19 30 H Rate Blood Pressure 137/80 193/91 116/63 O2 Sat by Pulse 89 96 Oximetry O2 Sat by Pulse Oximetry [ Anterior Bilateral Throughout] 01/05/21 01/05/21 01/05/21 13:51 14:00 14:30 Temperature 98.5 F Pulse Rate 88 91 H 81 Respiratory 24 18 28 H Rate Blood Pressure 193/91 193/91 187/85 O2 Sat by Pulse 96 95 Oximetry O2 Sat by Pulse Oximetry [ Anterior Bilateral Throughout] 01/05/21 01/05/21 15:00 15:15 Temperature Pulse Rate 76 69 Respiratory 28 H Rate Blood Pressure 154/77 130/64 O2 Sat by Pulse 95 Oximetry O2 Sat by Pulse Oximetry [ Anterior Bilateral Throughout] - Lab 01/05/21 07:22 01/05/21 07:22 Most recent lab results ABG pH 7.437 (7.320-7.450) 01/05/21 14:06 ABG pCO2 37.9 mm Hg 01/05/21 03:50 ABG pO2 136.8 mm Hg (80.0-90.0) H 01/05/21 03:50 ABG HCO3 22.4 mmol/L (20.0-26.0) 01/05/21 03:50 ABG O2 Saturation 99.8 (0-100) 01/05/21 14:06 Calcium 8.9 mg/dL (8.4-10.2) D 01/05/21 07:22 Phosphorus 4.90 mg/dL (2.5-4.5) H D 01/05/21 07:22 Magnesium 1.80 mg/dL (1.7-2.3) 01/04/21 06:20 Urine Creatinine 78.1 mg/dL (0.1-20.0) H 12/23/20 12:15 Urine Sodium 13 mmol/L 12/23/20 12:15 Medications & Allergies - Medications Allergies/Adverse Reactions: Allergies Iodinated Contrast Media Adverse Reaction (Verified 09/04/18 14:20) Unknown Home Medications: Home Medications Medication Instructions Recorded Confirmed Last Taken Type Aspirin 81 mg PO DAILY #30 tab.chew 09/08/18 01/04/21 03/31/20 09:28 Rx AtorvaSTATin [Lipitor] 80 mg PO QHS tablet 05/08/19 01/04/21 03/28/20 Rx Albuterol Sulfate [Proventil Hfa] 13.4 gm IH Q6H #1 hfa.aer.ad 04/01/20 01/04/21 Unknown Rx Clopidogrel [Plavix] 75 mg PO DAILY #30 tablet 04/01/20 01/04/21 Unknown Rx Gabapentin 300 mg PO BID@0700,1800 30 Days 04/01/20 01/04/21 Unknown Rx capsule Gabapentin 600 mg PO QHS 30 Days capsule 04/01/20 01/04/21 Unknown Rx Metoprolol [Lopressor TAB] 25 mg PO BID #60 tablet 04/01/20 01/04/21 Unknown Rx [place]-3/Dha/Epa/Fish Oil [[place] 3 1 each PO BID #60 capsule 04/01/20 01/04/21 Unknown Rx 500 Softgel] Tiotropium [place] [Spiriva] 2 puff IH DAILY #30 cap.w.dev 04/01/20 01/04/21 Unknown Rx Ubidecarenone [Co Q-10] 10 mg PO BID #60 tab 04/01/20 01/04/21 03/29/20 Rx cilostazoL [Pletal] 50 mg PO BID 30 Days tablet 04/01/20 01/04/21 Unknown Rx oxyCODONE /ACETAMINOPHEN [Percocet 2 tab PO Q6H PRN tablet 04/01/20 01/04/21 Unknown Rx 5/325 mg] Phosphorus #1 [K-Phos Neutral] 250 mg PO QID 2 Days #8 tablet 09/14/20 01/04/21 Unknown Rx Active Medications: Generic Name Dose Route Start Last Admin Trade Name Freq PRN Reason Stop Dose Admin Acetaminophen 650 mg 12/21/20 11:51 12/25/20 20:35 Acetaminophen 650 Mg Rect Supp NV 650 mg Q4H PRN Administration TEMP >/=100.4 Bisacodyl 10 mg 12/30/20 11:00 01/05/21 09:03 Bisacodyl 10 Mg Rect Supp NV Not Given QDAY ASCENCION Dextrose 50 ml 12/24/20 10:49 Dextrose 50% In Water (25gm) 50 Ml Syringe IV Q30MIN PRN Hypoglycemia Protocol Famotidine 20 mg 12/26/20 10:00 01/05/21 14:11 Famotidine 20 Mg/2 Ml Inj IV 20 mg DAILY ASCENCION Administration Fentanyl 50 mcg 12/20/20 21:58 01/05/21 13:29 Fentanyl 100 Mcg/2 Ml Inj IV 50 mcg Q10MIN PRN Administration ANALGESIA Fentanyl 50 mcg 01/05/21 11:00 01/05/21 14:02 Fentanyl 100 Mcg/2 Ml Inj IV 50 mcg Q2H PRN Administration sedation Hydrophilic Ointment 1 applic 12/20/20 21:58 Lip Therapy Vaseline TP Q2HR PRN Dry Lips Fentanyl Citrate 2,000 mcg in 100 mls @ 6.01 mls/hr 12/20/20 22:00 01/05/21 13:13 Fentanyl Drip Premix IV 4 mcg/kg/hr TITR ASCENCION 24.04 mls/hr Administration Protocol 1 MCG/KG/HR Propofol 1,000 mg in 100 mls @ 3.606 mls/hr 12/20/20 22:00 01/04/21 14:29 Diprivan 10 Mg/Ml IV 0 mcg/kg/min TITR ASCENCION 0 mls/hr Titration Protocol 5 MCG/KG/MIN NORepinephrine/NS 8 MG-250 ML 8 mg in 250 mls @ 3.75 mls/hr 12/21/20 09:00 01/02/21 06:15 Norepinephrine/Ns 8 Mg-250 Ml (Double Conc) IV 0 mcg/min TITRATE ASCENCION 0 mls/hr Titration Protocol 2 MCG/MIN Vasopressin 20 unit/ Sodium 101 mls @ 9.09 mls/hr 12/24/20 09:00 01/02/21 09:49 Chloride IV 0 units/min TITR ASCENCION 0 mls/hr Titration Protocol 0.03 UNITS/MIN Piperacillin Sod/Tazobactam Sod 4.5 gm in 100 mls @ 200 mls/hr 12/26/20 18:00 01/05/21 05:58 Zosyn/Ns 4.5gm/100ml IV 01/06/21 23:59 200 mls/hr Q12H ASCENCION Administration Protocol Fluconazole 200 mg in 100 mls @ 100 mls/hr 12/26/20 10:00 01/05/21 14:11 Diflucan IV 01/06/21 23:59 100 mls/hr Q24H ASCENCION Administration Protocol Sodium Chloride 100 mls @ 999 mls/hr 01/03/21 10:21 Nacl 0.9% IV MARILU PRN Hypotension Amino Acids/Electrolytes/Dextrose 2,400 mls @ 100 mls/hr 01/04/21 20:00 01/04/21 21:10 Tpn Adult IV 01/05/21 19:59 100 mls/hr DAILY@1999 [facility] Administration Protocol Dexmedetomidine HCl 400 mcg/ 104 mls @ 7.322 mls/hr 01/04/21 11:00 01/05/21 15:38 Sodium Chloride IV Infused TITRATE [facility] Titration Protocol 0.2 MCG/KG/HR Sodium Chloride 500 mls @ 0 mls/hr 01/05/21 07:56 Nacl 0.9% 500 Ml IV 01/06/21 07:55 ONCE NR As Directed Amino Acids/Electrolytes/Dextrose 2,400 mls @ 100 mls/hr 01/05/21 20:00 Tpn Adult IV 01/06/21 19:59 DAILY@1999 [facility] Protocol Insulin Human Regular 0 units 12/28/20 00:00 01/05/21 12:37 Insulin Regular, Human 100 Units/1 Ml SUB-Q Not Given Q6H [facility] Protocol Multi-Ingred Cream/Lotion/Oil/Oint 1 applic 12/20/20 21:58 01/03/21 01:13 Mineral Oil/Petrolatum, White Ophth Oint 3.5 Gm OU 1 applic Q4HR PRN Administration Dry Eye(s) Sodium Chloride 10 ml 12/20/20 22:00 01/05/21 14:12 Sodium Chloride 0.9% 10 Ml Flush Syringe IV 10 ml BID ASCENCION Administration Sodium Chloride 10 ml 12/20/20 16:42 Sodium Chloride 0.9% 10 Ml Flush Syringe IV PRN PRN LINE FLUSH
--- NOTE | 2021-01-05 16:34 | Progress Note ---
<LILIYAMARGE SohaReagan - Last Filed: 01/05/21 16:32> Assessment and Plan Assessment and plan: This is a 60-year-old male with obesity, hypertension, nicotine dependence, PVD s/p stent placement on dual antiplatelet therapy, hyperlipidemia, OA, GERD, ventral hernia and small bowel obstruction who was admitted with small bowel obstruction and peritonitis Septic Shock, POA (presented with leukocytosis, tachycardia, tachypnea,febrile and evidence of peritonitis) COVID-19 PUI, ruled out Small bowel obstruction with peritonitis Ventral hernia s/p repair Leukocytosis Anemia Hyponatremia Hypochloremia Acute Kidney Injury Obesity Hypertension Nicotine dependence CAD s/p stent placement Hyperlipidemia Osteoarthritis GERD -CCM, surgery, infectious disease, nephrology consulted, appreciate recommendations -12/20 CT abdomen/pelvis showed high-grade small bowel obstruction related to severe complex ventral abdominal wall hernias, progressed in appearance from prior exam from 09/12/2020 without evidence of pneumonitis or pneumoperitoneum, patchy bibasilar airspace disease concern for atypical infectious process/pneumonitis -12/20 s/p ex lap, extensive lysis of adhesions, small bowel resection (removal of 70 cm necrotic small bowel segment), peritoneal lavage and ABThera abdominal wound VAC placement -12/23 s/p abdominal exploration, small bowel resection, peritoneal lavage, ABThera wound VAC placement -12/26 s/p ex lap, small bowel resection, peritoneal lavage, ABThera wound VAC placement -12/29 s/p ex lap, small bowel resection, small bowel anastomosis and ABThera wound VAC placement -01/01 s/p myocutaneous flap creation, abdominal wall component separation and placement of phasix mesh with surgery yesterday where his abdomen was closed and 2 LAURA drains were placed on either side of his midline between fascia and subcu tissue. -12/30 initiated on HD by nephro -IV abx per ID: Zosyn, fluconazole to continue for 5 days until final surgery -NGT, will try to clamp -NPO for now, TPN -SSI, Accucheck q6 -s/p Vasopressor support as tolerated -HD per nephro -12/23 Fractional excretion of sodium calculated at 0.16 indicating prerenal state -COVID-19 PCR negative -On mechanical ventilation, wean as tolerated, VAP bundle -Sedated with propofol and analgesia with fentanyl drip -Transfuse for Hbg < 7 -Trend CBC, BMP, Mg, Phos GI/DVT prophylaxis: PPI, SCDs to bilateral lower extremities while in bed, Disposition: ICU The high probability of a clinically significant, sudden or life threatening deterioration of the [multi] system(s) required my full and direct attention, intervention and personal management. The aggregate critical care time was [35] minutes. This time is in addition to time spent performing reported procedures but includes the following: [x] Data Review and interpretation [x] Patient assessment and monitoring of vital signs [x] Documentation [x] Medication orders and management History Interval history: This is a 60-year-old male with obesity, hypertension, nicotine dependence, PVD s/p stent placement on dual antiplatelet therapy, hyperlipidemia, OA, GERD, ventral hernia with SBO who presents to the emergency department on 12/20 with severe, diffuse, worsened with movement, slightly relieved with rest abdominal pain rated at 10/10 with decreased oral intake, nausea and multiple episodes of vomiting. Patient underwent a CT of his abdomen/pelvis and was found to have evidence of small bowel obstruction as well as clinical findings consistent with acute peritonitis. Patient was admitted to the hospital service with acute peritonitis and incarcerated ventral hernia with consults to [facility] and surgery. 12/21: Patient is status post ex lap, extensive lysis of adhesions, small bowel resection, peritoneal lavage and ABThera abdominal wound VAC placement by Dr. Tena and Dr. Brumfield on 12/20 with removal of a 70 cm segment of necrotic small bowel. Patient was intubated and sedated on propofol 10/ fent 4 at the time of my examination on Assist-control, rate of 24, PEEP of 6, tidal volume of 550 and FiO2 35%. Patient needed to be deeply sedated and there was a became hypotensive. Patient was started on patient for support with Levophed and received bolus of IVF. 12/22: Patient was febrile to 103 and vancomycin and Diflucan were added by [facility] and infectious disease was consulted and they increased Zosyn and stop vancomycin. Patient was given additional 1 L bolus today for CVP goal of 10-12. At the time of examination patient was on Levophed, propofol and fentanyl CMV tidal volume 500, rate of 24, PEEP of 6 and FiO2 65%. Plan for OR tomorrow 12/23: Patient Cr/BUN noted to be increased and nephrology was consulted. ID decreased the zosyn dose d/r renal function. Urine studies ordered. Ivy placed today. LR boluses per [facility], TPN to be started. Fractional excretion of sodium calculated at 0.16 indicating prerenal state 12/24: Patient is status post abdominal exploration, small bowel resection of 4 to 5 cm segment of dusky small bowel, peritoneal lavage and ABThera wound VAC placement on 12/23 with surgery, leukocytosis and renal function is improving, worsening hypernatremia and hyperchloremia. Patient will be started on TPN today. We will place on SSI/Accu-Cheks every every 6 hours. Patient noted to be nearly maxed on Levophed and vasopressin was ordered. Remains sedated and on MV 12/25: Leukocytosis continues to improve, given Ca Gluconate today, Hypernatremia, Cr and hyperchorlemia slightly worsened today. Patient is sedated with propofol and fentanyl on CMV TV 500, Rate 24, Peep 6, FiO2 50%. He remains on levophed. Possible OR Saturday. 12/26 Patient presented with small bowel obstruction, is status post ex lap, extensive lysis of adhesions, small bowel resection, peritoneal lavage and ABThera abdominal wound VAC placement by Dr. Tena and Dr. Brumfield on 12/20 with removal of a 70 cm segment of necrotic small bowel. Was taken back to OR on 12/23 s/p Abdominal exploration, Small bowel resection, Peritoneal lavage, ABThera wound VAC placement. he is still having fever. Poss going to OR again today. Sepsis managed by ID. He is on Diflucan, Zosyn. He is on Levophed. 6/ s/p ex lap, extensive lysis of adhesions, small bowel resection (removal of 70 cm necrotic small bowel segment), peritoneal lavage and ABThera abdominal wound VAC placement. Still having fever Still on vent 12/28: Patient is orally intubated with AC mode ventilation rate 24, tidal volume 500, FiO2 75% and PEEP of 6. POD#8 s/p ex lap and small bowel resection for necrotic bowel secondary to incarcerated ventral hernia left with open abdomen. POD#5 s/p abdominal exploration with segmental small bowel resection. abthera placement POD#2 s/p abdominal exploration, small bowel resection for ischemia, abthera placement -[facility], surgery, infectious disease, nephrology consulted, appreciate recommendations -IV abx per ID: Zosyn, fluconazole -NGT to LIWS -NPO for now, TPN -SSI, Accucheck q6 -Vasopressor support with levophed -On mechanical ventilation, wean as tolerated, VAP bundle -Sedated with propofol and analgesia with fentanyl drip -Trend CBC, BMP, Mg, Phos -GI/DVT prophylaxis: PPI, SCDs to bilateral lower extremities while in bed, avoid chemical anticoagulation to cleared by surgery 12/29: Patient underwent abdominal exploration, small bowel resection, small bowel anastomosis and ABThera wound VAC placement this a.m. Patient remains on AC mode ventilation with a rate of 24, tidal volume 500, FiO2 65% and PEEP of 6. Continue antibiotics per ID recommendations. Continue vasopressor support as needed. Continue TPN for nutritional support. 12/30: Patient currently with AC mode ventilation rate of 24, tidal volume 500, FiO2 60% and PEEP of 6. Patient underwent further surgery yesterday with another abdominal exploration, small bowel resection, small bowel anastomosis and replacement of the ABThera wound VAC. Patient continues to require vasopressor support with vasopressin and Levophed. Continue TPN for nutrition. Continue propofol and fentanyl for sedation. Continue Zosyn per ID recommendations 12: Patient currently with AC mode ventilation rate of 24, tidal volume 500, FiO2 50% and PEEP of 6. POD#12 s/p ex lap and small bowel resection for necrotic bowel secondary to incarcerated ventral hernia left with open abdomen. POD#9 s/p abdominal exploration with segmental small bowel resection. abthera placement POD#3 s/p abdominal exploration, small bowel resection for ischemia, abthera placement POD#2 s/p abdominal exploration with small bowel anastamosis and abthera vac placement Continue hemodialysis per nephrology recommendations. Surgery plans for abdominal washout and bowel examination on Saturday. If anastamosis looks viable and no other issues, surgery plans to close his abdomen. 01/01: Continue current ventilator settings per pulmonary monitor ABG. Continue antibiotics per ID recommendations. Surgery plans for abdominal washout and bowel examination. If anastamosis looks viable and no other issues, surgery plans to close his abdomen. Wean pressors to maintain MAP > 65. Continue TPN for nutritional support. Hemodialysis per nephrology recommendations. Prognosis remains guarded. 01/02: At the time my examination patient was only on vasopressin for vasopressor support, sedated on 30 mcg of propofol and 4 mcg of fentanyl. Patient was on CMV tidal volume 500, rate of 12, PEEP of 10 and 50% FiO2. Patient remains on TPN and with NG tube to low intermittent suction. Patient underwent a myocutaneous flap creation, abdominal wall component separation and placement of phasix mesh with surgery yesterday where his abdomen was closed and 2 LAURA drains were placed on either side of his midline between fascia and subcu tissue. Per infectious his antibiotics will continue until 5 days postop from a final surgery. Patient has increasing leukocytosis which are likely reactive to surgery and patient will have hemodialysis today for clearance and volume removal. Patient sedation and mechanical ventilation will be weaned for extubation. 01/03: Patient H/H is 6.2/18.5 and he is being transfused 2 units PRBC with hemodialysis today. Patient has slight hypokalemia but TPN has been adjusted to address potassium. Patient continues to have hyponatremia, hypochloremia and hyperphosphatemia closely improved. The time my examination patient sedated on fentanyl and propofol and LAURA drainage noted to be more serosanguineous. Patient was on assist control with TV 500, PEEP of 8, rate of 28 and FiO2 40%. Patient remains off vasopressor support. No acute overnight events reported 01/04: Patient sedated on propofol and fentanyl. RN reported bowel movement overnight. Precedex drip started. NG tube clamped and may start trickle tube feedings later if patient does not have high residuals. CCM continues to wean ventilation as tolerated. On my exam patient is on CMV tidal volume 500 rate of 28, PEEP of 8 and 40% FiO2. Patient is having periods of agitation and FiO2 had to be increased for hypoxia. Mucor species in tracheal aspirate but ID believes this is colonization. 01/05: Patient is severely agitated and received multiple IV push fentanyl. Patient was ultimately started on propofol. He received hemodialysis today. Patient had approximately 400 mL of NG output overnight. NG tube continues to be on suction. Leukocytosis worsened today. Hospitalist Physical - Constitutional Vitals: Temp Pulse Resp BP Pulse Ox 98.5 F 89 24 142/71 87 01/05/21 16:00 01/05/21 16:00 01/05/21 16:00 01/05/21 16:00 01/05/21 16:00 General appearance: Present: mild distress, well-nourished - EENT Eyes: Present: PERRL, EOM intact ENT: poor dentition - Neck Neck: Present: normal ROM - Respiratory Respiratory effort: normal Respiratory: bilateral: diminished - Cardiovascular Rhythm: regular Heart Sounds: Present: S1 & S2. Absent: systolic murmur, diastolic murmur - Extremities Extremities: no ischemia, pulses intact, pulses symmetrical, normal temperature, normal color Extremity abnormal: edema Peripheral Pulses: within normal limits - Abdominal General gastrointestinal: soft, hypoactive bowel sounds - Integumentary Integumentary: Present: warm, dry - Psychiatric Psychiatric: agitated - Neurologic Neurologic: moves all extremities - Allied Health Allied health notes reviewed: nursing, RT, social work HEART Score - HEART Score Troponin: Troponin T < 0.010 ng/mL (0.00-0.029) 12/20/20 13:58 Results - Labs CBC & Chem 7: 01/05/21 07:22 01/05/21 07:22 Labs: Laboratory Last Values WBC 23.8 K/mm3 (4.5-11.0) H 01/05/21 07:22 RBC 2.93 M/mm3 (3.65-5.03) L 01/05/21 07:22 Hgb 8.2 gm/dl (11.8-15.2) L 01/05/21 07:22 Hct 25.1 % (35.5-45.6) L 01/05/21 07:22 MCV 86 fl (84-94) 01/05/21 07:22 MCH 28 pg (28-32) 01/05/21 07:22 MCHC 33 % (32-34) 01/05/21 07:22 RDW 16.5 % (13.2-15.2) H 01/05/21 07:22 Plt Count 408 K/mm3 (140-440) 01/05/21 07:22 Add Manual Diff Complete 12/31/20 16:23 Total Counted 100 12/31/20 16:23 Seg Neutrophils % Embossing Tool Setter 12/31/20 16:23 Seg Neuts % (Manual) 91.0 % (40.0-70.0) H 12/31/20 16:23 Band Neutrophils % 2.0 % 12/31/20 16:23 Lymphocytes % (Manual) 6.0 % (13.4-35.0) L 12/31/20 16:23 Monocytes % (Manual) 1.0 % (0.0-7.3) 12/31/20 16:23 Nucleated RBC % Not Reportable 12/31/20 16:23 Seg Neutrophils # Man 16.4 K/mm3 (1.8-7.7) H 12/31/20 16:23 Band Neutrophils # 0.4 K/mm3 12/31/20 16:23 Lymphocytes # (Manual) 1.1 K/mm3 (1.2-5.4) L 12/31/20 16:23 Abs React Lymphs (Man) 0.0 K/mm3 12/31/20 16:23 Monocytes # (Manual) 0.2 K/mm3 (0.0-0.8) 12/31/20 16:23 Eosinophils # (Manual) 0.0 K/mm3 (0.0-0.4) 12/31/20 16:23 Basophils # (Manual) 0.0 K/mm3 (0.0-0.1) 12/31/20 16:23 Metamyelocytes # 0.0 K/mm3 12/31/20 16:23 Myelocytes # 0.0 K/mm3 12/31/20 16:23 Promyelocytes # 0.0 K/mm3 12/31/20 16:23 Blast Cells # 0.0 K/mm3 12/31/20 16:23 WBC Morphology Not Reportable 12/31/20 16:23 Hypersegmented Neuts Not Reportable 12/31/20 16:23 Hyposegmented Neuts Not Reportable 12/31/20 16:23 Hypogranular Neuts Not Reportable 12/31/20 16:23 Smudge Cells Not Reportable 12/31/20 16:23 Toxic Granulation Not Reportable 12/31/20 16:23 Toxic Vacuolation Not Reportable 12/31/20 16:23 Dohle Bodies Not Reportable 12/31/20 16:23 Pelger-Huet Anomaly Not Reportable 12/31/20 16:23 Mirian Rods Not Reportable 12/31/20 16:23 Platelet Estimate Consistent w auto 12/31/20 16:23 Clumped Platelets Not Reportable 12/31/20 16:23 Plt Clumps, EDTA Not Reportable 12/31/20 16:23 Large Platelets Not Reportable 12/31/20 16:23 Giant Platelets Not Reportable 12/31/20 16:23 Platelet Satelliting Not Reportable 12/31/20 16:23 Plt Morphology Comment Not Reportable 12/31/20 16:23 RBC Morphology Not Reportable 12/31/20 16:23 Dimorphic RBCs Not Reportable 12/31/20 16:23 Polychromasia Not Reportable 12/31/20 16:23 Hypochromasia Not Reportable 12/31/20 16:23 Poikilocytosis Not Reportable 12/31/20 16:23 Anisocytosis 1+ 12/31/20 16:23 Microcytosis Not Reportable 12/31/20 16:23 Macrocytosis Not Reportable 12/31/20 16:23 Spherocytes Not Reportable 12/31/20 16:23 Pappenheimer Bodies Not Reportable 12/31/20 16:23 Sickle Cells Not Reportable 12/31/20 16:23 Target Cells Not Reportable 12/31/20 16:23 Tear Drop Cells Not Reportable 12/31/20 16:23 Ovalocytes Not Reportable 12/31/20 16:23 Helmet Cells Not Reportable 12/31/20 16:23 Mart-Pronghorn Bodies Not Reportable 12/31/20 16:23 [place] Rings Not Reportable 12/31/20 16:23 Jonathan Cells Not Reportable 12/31/20 16:23 Bite Cells Not Reportable 12/31/20 16:23 Crenated Cell Not Reportable 12/31/20 16:23 Elliptocytes Not Reportable 12/31/20 16:23 Acanthocytes (Spur) Not Reportable 12/31/20 16:23 Rouleaux Not Reportable 12/31/20 16:23 Hemoglobin C Crystals Not Reportable 12/31/20 16:23 Schistocytes Not Reportable 12/31/20 16:23 Malaria parasites Not Reportable 12/31/20 16:23 Dylon Bodies Not Reportable 12/31/20 16:23 Hem Pathologist Commnt No 12/31/20 16:23 APTT 49.4 Sec. (24.2-36.6) H 12/20/20 13:58 ABG pH 7.437 (7.320-7.450) 01/05/21 14:06 POC ABG pCO2 39.2 mmHg (32.0-48.0) 01/05/21 14:06 ABG pCO2 37.9 mm Hg 01/05/21 03:50 POC ABG pO2 332.3 mmHg (83-108) H 01/05/21 14:06 ABG pO2 136.8 mm Hg (80.0-90.0) H 01/05/21 03:50 POC ABG HCO3 25.8 01/05/21 14:06 ABG HCO3 22.4 mmol/L (20.0-26.0) 01/05/21 03:50 ABG O2 Saturation 99.8 (0-100) 01/05/21 14:06 ABG O2 Content 9.8 (0.0-44) 01/05/21 03:50 POC ABG Base Excess 1.6 01/05/21 14:06 ABG Base Excess -2.3 mmol/L (-2.0-3.0) L 01/05/21 03:50 ABG Hemoglobin 7.7 (12.0-17.5) L 01/05/21 14:06 ABG Oxyhemoglobin 98.7 (94-98) H 01/05/21 14:06 ABG Carboxyhemoglobin 1.5 % (0.0-5.0) 01/05/21 03:50 ABG Methemoglobin 0.3 (0.0-1.5) 01/05/21 14:06 ABG Sodium 131.0 mmol/L (136.0-145.0) L 01/05/21 14:06 ABG Potassium 3.3 mmol/L (3.40-4.50) L 01/05/21 14:06 ABG Chloride 97.0 mmol/L (98-107) L 01/05/21 14:06 ABG Glucose 118 mg/dL (65-95) H 01/05/21 14:06 Oxyhemoglobin 96.7 % (95.0-99.0) 01/05/21 03:50 Carboxyhemoglobin 0.8 (0.5-1.5) 01/05/21 14:06 FiO2 50 % 01/05/21 03:50 FiO2 % 100.0 01/05/21 14:06 Sodium 134 mmol/L (137-145) L 01/05/21 07:22 Potassium 4.4 mmol/L (3.6-5.0) D 01/05/21 07:22 Chloride 93.3 mmol/L (98-107) L 01/05/21 07:22 Carbon Dioxide 22 mmol/L (22-30) 01/05/21 07:22 Anion Gap 23 mmol/L 01/05/21 07:22 BUN 77 mg/dL (9-20) H 01/05/21 07:22 Creatinine 4.2 mg/dL (0.8-1.3) H 01/05/21 07:22 Estimated GFR 15 ml/min 01/05/21 07:22 BUN/Creatinine Ratio 18 % 01/05/21 07:22 Glucose 105 mg/dL (75-100) H 01/05/21 07:22 POC Glucose 111 mg/dL (70-105) H 01/05/21 15:37 Lactic Acid 1.70 mmol/L (0.7-2.0) 12/20/20 16:20 Calcium 8.9 mg/dL (8.4-10.2) D 01/05/21 07:22 Ionized Calcium 3.3 mg/dL (4.8-5.6) L 12/27/20 14:40 Phosphorus 4.90 mg/dL (2.5-4.5) H D 01/05/21 07:22 Magnesium 1.80 mg/dL (1.7-2.3) 01/04/21 06:20 Total Bilirubin 0.50 mg/dL (0.1-1.2) 01/02/21 08:00 AST 47 units/L (5-40) H 01/02/21 08:00 ALT 26 units/L (7-56) 01/02/21 08:00 Alkaline Phosphatase 80 units/L (35-129) 01/02/21 08:00 Troponin T < 0.010 ng/mL (0.00-0.029) 12/20/20 13:58 Total Protein 5.0 g/dL (6.3-8.2) L 01/02/21 08:00 Albumin 1.6 g/dL (3.9-5) L 01/02/21 08:00 Albumin/Globulin Ratio 0.5 % 01/02/21 08:00 Triglycerides 144 mg/dL (2-149) 01/03/21 07:56 Arterial Blood Glucose 118 mg/dL (65-95) H 01/05/21 14:06 Arterial Blood Ionized Calcium 4.4 mg/dL (4.6-5.3) L 01/05/21 14:06 Urine Color Yellow (Yellow) 12/23/20 12:15 Urine Turbidity Cloudy (Clear) 12/23/20 12:15 Urine pH 5.0 (5.0-7.0) 12/23/20 12:15 Ur Specific [place] 1.019 (1.003-1.030) 12/23/20 12:15 Urine Protein <15 mg/dl mg/dL (Negative) 12/23/20 12:15 Urine Glucose (UA) Neg mg/dL (Negative) 12/23/20 12:15 Urine Ketones Neg mg/dL (Negative) 12/23/20 12:15 Urine Blood Sm (Negative) 12/23/20 12:15 Urine Nitrite Neg (Negative) 12/23/20 12:15 Urine Bilirubin Neg (Negative) 12/23/20 12:15 Urine Urobilinogen < 2.0 mg/dL (<2.0) 12/23/20 12:15 Ur Leukocyte Esterase Neg (Negative) 12/23/20 12:15 Urine WBC (Auto) 5.0 /HPF (0.0-6.0) 12/23/20 12:15 Urine RBC (Auto) 2.0 /HPF (0.0-6.0) 12/23/20 12:15 U Epithel Cells (Auto) < 1.0 /HPF (0-13.0) 12/20/20 Unknown Urine Bacteria (Auto) 1+ /HPF (Negative) 12/23/20 12:15 Triple Phos Crystals 2+ 12/23/20 12:15 Hyaline Casts 19 /LPF 12/20/20 Unknown Urine Mucus Few /HPF 12/23/20 12:15 Urine Eosinophils None seen (None Seen) 12/23/20 12:15 Urine Creatinine 78.1 mg/dL (0.1-20.0) H 12/23/20 12:15 Urine Sodium 13 mmol/L 12/23/20 12:15 Fraction Sodium Excret 0.2 12/23/20 12:15 Random Vancomycin 7.9 ug/mL (0-40.0) 12/23/20 12:15 Coronavirus (PCR) Negative (Negative) 12/21/20 Unknown Hepatitis A IgM Ab Non-reactive (NonReactive) 12/30/20 14:40 Hep Bs Antigen Non-reactive (Negative) 12/30/20 14:40 Hep B Core IgM Ab Non-reactive (NonReactive) 12/30/20 14:40 Hepatitis C Antibody Non-reactive (NonReactive) 12/30/20 14:40 Blood Type A NEGATIVE 01/03/21 11:00 Antibody Screen Negative 01/03/21 11:00 Crossmatch See Detail 01/03/21 11:00 Lawrence/IV: Voiding Method Indwelling Catheter Active Medications - Current Medications Current Medications: Generic Name Dose Route Start Last Admin Trade Name Freq PRN Reason Stop Dose Admin Acetaminophen 650 mg 12/21/20 11:51 12/25/20 20:35 Acetaminophen 650 Mg Rect Supp VA 650 mg Q4H PRN Administration TEMP >/=100.4 Bisacodyl 10 mg 12/30/20 11:00 01/05/21 09:03 Bisacodyl 10 Mg Rect Supp VA Not Given QDAY ASCENCION Dextrose 50 ml 12/24/20 10:49 Dextrose 50% In Water (25gm) 50 Ml Syringe IV Q30MIN PRN Hypoglycemia Protocol Famotidine 20 mg 12/26/20 10:00 01/05/21 14:11 Famotidine 20 Mg/2 Ml Inj IV 20 mg DAILY ASCENCION Administration Fentanyl 50 mcg 12/20/20 21:58 01/05/21 13:29 Fentanyl 100 Mcg/2 Ml Inj IV 50 mcg Q10MIN PRN Administration ANALGESIA Fentanyl 50 mcg 01/05/21 11:00 01/05/21 14:02 Fentanyl 100 Mcg/2 Ml Inj IV 50 mcg Q2H PRN Administration sedation Hydrophilic Ointment 1 applic 12/20/20 21:58 Lip Therapy Vaseline TP Q2HR PRN Dry Lips Fentanyl Citrate 2,000 mcg in 100 mls @ 6.01 mls/hr 12/20/20 22:00 01/05/21 13:13 Fentanyl Drip Premix IV 4 mcg/kg/hr TITR ASCENCION 24.04 mls/hr Administration Protocol 1 MCG/KG/HR Propofol 1,000 mg in 100 mls @ 3.606 mls/hr 12/20/20 22:00 01/05/21 16:14 Diprivan 10 Mg/Ml IV 5 mcg/kg/min TITR ASCENCION 3.606 mls/hr Administration Protocol 5 MCG/KG/MIN NORepinephrine/NS 8 MG-250 ML 8 mg in 250 mls @ 3.75 mls/hr 12/21/20 09:00 01/02/21 06:15 Norepinephrine/Ns 8 Mg-250 Ml (Double Conc) IV 0 mcg/min TITRATE ASCENCION 0 mls/hr Titration Protocol 2 MCG/MIN Vasopressin 20 unit/ Sodium 101 mls @ 9.09 mls/hr 12/24/20 09:00 01/02/21 09:49 Chloride IV 0 units/min TITR ASCENCION 0 mls/hr Titration Protocol 0.03 UNITS/MIN Piperacillin Sod/Tazobactam Sod 4.5 gm in 100 mls @ 200 mls/hr 12/26/20 18:00 01/05/21 05:58 Zosyn/Ns 4.5gm/100ml IV 01/06/21 23:59 200 mls/hr Q12H ASCENCION Administration Protocol Fluconazole 200 mg in 100 mls @ 100 mls/hr 12/26/20 10:00 01/05/21 14:11 Diflucan IV 01/06/21 23:59 100 mls/hr Q24H ASCENCION Administration Protocol Sodium Chloride 100 mls @ 999 mls/hr 01/03/21 10:21 Nacl 0.9% IV MARILU PRN Hypotension Amino Acids/Electrolytes/Dextrose 2,400 mls @ 100 mls/hr 01/04/21 20:00 01/04/21 21:10 Tpn Adult IV 01/05/21 19:59 100 mls/hr DAILY@1999 ASCENCION Administration Protocol Dexmedetomidine HCl 400 mcg/ 104 mls @ 7.322 mls/hr 01/04/21 11:00 01/05/21 15:38 Sodium Chloride IV Infused TITRATE ASCENCION Titration Protocol 0.2 MCG/KG/HR Sodium Chloride 500 mls @ 0 mls/hr 01/05/21 07:56 Nacl 0.9% 500 Ml IV 01/06/21 07:55 ONCE NR As Directed Amino Acids/Electrolytes/Dextrose 2,400 mls @ 100 mls/hr 01/05/21 20:00 Tpn Adult IV 01/06/21 19:59 DAILY@1999 ASCENCION Protocol Insulin Human Regular 0 units 12/28/20 00:00 01/05/21 12:37 Insulin Regular, Human 100 Units/1 Ml SUB-Q Not Given Q6H [facility] Protocol Multi-Ingred Cream/Lotion/Oil/Oint 1 applic 12/20/20 21:58 01/03/21 01:13 Mineral Oil/Petrolatum, White Ophth Oint 3.5 Gm OU 1 applic Q4HR PRN Administration Dry Eye(s) Sodium Chloride 10 ml 12/20/20 22:00 01/05/21 14:12 Sodium Chloride 0.9% 10 Ml Flush Syringe IV 10 ml BID ASCENCION Administration Sodium Chloride 10 ml 12/20/20 16:42 Sodium Chloride 0.9% 10 Ml Flush Syringe IV PRN PRN LINE FLUSH Nutrition/Malnutrition Assess - Dietary Evaluation Nutrition/Malnutrition Findings: Nutrition Notes Start: 12/21/20 09:06 Freq: Status: Active Protocol: Document 01/05/21 13:58 GER (Rec: 01/05/21 14:33 GER [id number]) Nutrition Notes Initial or Follow up Reassessment Current Diagnosis Acute Kidney Injury,Coronary Artery Disease,Sepsis, Hypertension,Small Bowel Obstruction,Hyperlipidemia Other Pertinent Diagnosis gangrenous small bowel, s/p small bowel ressection, peritonitis Current Diet TPN at 100ml/hr Labs/Tests Na 134 Cl 93.3 BUN 77 Cr 4.2 Phos 4.9 Pertinent Medications Reviewed Height 6 ft Weight 140.8 kg [place] Body Weight (kg) 80.90 BMI 42.0 Weight Status Morbidly Obese Subjective/Other Information Day 13 CPN. Pt remains on vent support; received HD today. Percent of energy/protein needs met: 93% energy 90% pro Burn Absent Trauma Absent #2 Nutrition Diagnosis Increased nutrient needs ( specify in comment below) Diagnosis Progress(for reassessment Continues documentation) #1 Nutrition Diagnosis Inadequate oral intake Diagnosis Progress(for reassessment Continues documentation) Is patient on ventilator? Yes Is Patient Ambulatory and/or Out of Bed No REE-([facility]-confined to bed) 2717.172 Kcal/Kg value to use for calculation 14 Approximate Energy Requirements Using 1971 kcal/Kg Calculation Used for Recommendations Kcal/kg Additional Notes Pro needs >1.2g/kg adjBW: > 133g/day Fluid needs per MD. Nutrition Intervention Nutrition Support: Continue CPN at 100 ml/hr: MVI , 4.2% amino acids. Osmolality: 1312. Kcal 1,760 Protein (gm) 100 Carbohydrates (gm) 400 Fat (gm) 0 Fluid (mL) 2,400 Fiber (gm) 0 Goal #1 Meet needs as best as possible via CPN Follow-Up By: 01/06/21 Additional Comments Labs in am: BMP, Mg, Phos <AVTAR MAYO - Last Filed: 01/05/21 16:42> Assessment and Plan Assessment and plan: patient seen and examined, agree with assessment and plan as outlined by nurse practitioner. Attempted to wean patient off of vent, but patient agitated. Patient on fentanyl and propofol. Hemodialysis today. Residuals from NG tube about 400 cc overnight. Worsening leukocytosis, chest x-ray showing minimal improvement in bilateral lung opacities. Continue to monitor CBC, continue antibiotics and antifungal treatment. Hospitalist Physical - Constitutional Vitals: Temp Pulse Resp BP Pulse Ox 98.5 F 89 24 142/71 87 01/05/21 16:00 01/05/21 16:00 01/05/21 16:00 01/05/21 16:00 01/05/21 16:00 HEART Score - HEART Score Troponin: Troponin T < 0.010 ng/mL (0.00-0.029) 12/20/20 13:58 Results - Labs CBC & Chem 7: 01/05/21 07:22 01/05/21 07:22 Labs: Laboratory Last Values WBC 23.8 K/mm3 (4.5-11.0) H 01/05/21 07:22 RBC 2.93 M/mm3 (3.65-5.03) L 01/05/21 07:22 Hgb 8.2 gm/dl (11.8-15.2) L 01/05/21 07:22 Hct 25.1 % (35.5-45.6) L 01/05/21 07:22 MCV 86 fl (84-94) 01/05/21 07:22 MCH 28 pg (28-32) 01/05/21 07:22 MCHC 33 % (32-34) 01/05/21 07:22 RDW 16.5 % (13.2-15.2) H 01/05/21 07:22 Plt Count 408 K/mm3 (140-440) 01/05/21 07:22 Add Manual Diff Complete 12/31/20 16:23 Total Counted 100 12/31/20 16:23 Seg Neutrophils % [employer] 12/31/20 16:23 Seg Neuts % (Manual) 91.0 % (40.0-70.0) H 12/31/20 16:23 Band Neutrophils % 2.0 % 12/31/20 16:23 Lymphocytes % (Manual) 6.0 % (13.4-35.0) L 12/31/20 16:23 Monocytes % (Manual) 1.0 % (0.0-7.3) 12/31/20 16:23 Nucleated RBC % Not Reportable 12/31/20 16:23 Seg Neutrophils # Man 16.4 K/mm3 (1.8-7.7) H 12/31/20 16:23 Band Neutrophils # 0.4 K/mm3 12/31/20 16:23 Lymphocytes # (Manual) 1.1 K/mm3 (1.2-5.4) L 12/31/20 16:23 Abs React Lymphs (Man) 0.0 K/mm3 12/31/20 16:23 Monocytes # (Manual) 0.2 K/mm3 (0.0-0.8) 12/31/20 16:23 Eosinophils # (Manual) 0.0 K/mm3 (0.0-0.4) 12/31/20 16:23 Basophils # (Manual) 0.0 K/mm3 (0.0-0.1) 12/31/20 16:23 Metamyelocytes # 0.0 K/mm3 12/31/20 16:23 Myelocytes # 0.0 K/mm3 12/31/20 16:23 Promyelocytes # 0.0 K/mm3 12/31/20 16:23 Blast Cells # 0.0 K/mm3 12/31/20 16:23 WBC Morphology Not Reportable 12/31/20 16:23 Hypersegmented Neuts Not Reportable 12/31/20 16:23 Hyposegmented Neuts Not Reportable 12/31/20 16:23 Hypogranular Neuts Not Reportable 12/31/20 16:23 Smudge Cells Not Reportable 12/31/20 16:23 Toxic Granulation Not Reportable 12/31/20 16:23 Toxic Vacuolation Not Reportable 12/31/20 16:23 Dohle Bodies Not Reportable 12/31/20 16:23 Pelger-Huet Anomaly Not Reportable 12/31/20 16:23 Mirian Rods Not Reportable 12/31/20 16:23 Platelet Estimate Consistent w auto 12/31/20 16:23 Clumped Platelets Not Reportable 12/31/20 16:23 Plt Clumps, EDTA Not Reportable 12/31/20 16:23 Large Platelets Not Reportable 12/31/20 16:23 Giant Platelets Not Reportable 12/31/20 16:23 Platelet Satelliting Not Reportable 12/31/20 16:23 Plt Morphology Comment Not Reportable 12/31/20 16:23 RBC Morphology Not Reportable 12/31/20 16:23 Dimorphic RBCs Not Reportable 12/31/20 16:23 Polychromasia Not Reportable 12/31/20 16:23 Hypochromasia Not Reportable 12/31/20 16:23 Poikilocytosis Not Reportable 12/31/20 16:23 Anisocytosis 1+ 12/31/20 16:23 Microcytosis Not Reportable 12/31/20 16:23 Macrocytosis Not Reportable 12/31/20 16:23 Spherocytes Not Reportable 12/31/20 16:23 Pappenheimer Bodies Not Reportable 12/31/20 16:23 Sickle Cells Not Reportable 12/31/20 16:23 Target Cells Not Reportable 12/31/20 16:23 Tear Drop Cells Not Reportable 12/31/20 16:23 Ovalocytes Not Reportable 12/31/20 16:23 Helmet Cells Not Reportable 12/31/20 16:23 Mart-Pronghorn Bodies Not Reportable 12/31/20 16:23 [place] Rings Not Reportable 12/31/20 16:23 Jonathan Cells Not Reportable 12/31/20 16:23 Bite Cells Not Reportable 12/31/20 16:23 Crenated Cell Not Reportable 12/31/20 16:23 Elliptocytes Not Reportable 12/31/20 16:23 Acanthocytes (Spur) Not Reportable 12/31/20 16:23 Rouleaux Not Reportable 12/31/20 16:23 Hemoglobin C Crystals Not Reportable 12/31/20 16:23 Schistocytes Not Reportable 12/31/20 16:23 Malaria parasites Not Reportable 12/31/20 16:23 Dylon Bodies Not Reportable 12/31/20 16:23 Hem Pathologist Commnt No 12/31/20 16:23 APTT 49.4 Sec. (24.2-36.6) H 12/20/20 13:58 ABG pH 7.437 (7.320-7.450) 01/05/21 14:06 POC ABG pCO2 39.2 mmHg (32.0-48.0) 01/05/21 14:06 ABG pCO2 37.9 mm Hg 01/05/21 03:50 POC ABG pO2 332.3 mmHg (83-108) H 01/05/21 14:06 ABG pO2 136.8 mm Hg (80.0-90.0) H 01/05/21 03:50 POC ABG HCO3 25.8 01/05/21 14:06 ABG HCO3 22.4 mmol/L (20.0-26.0) 01/05/21 03:50 ABG O2 Saturation 99.8 (0-100) 01/05/21 14:06 ABG O2 Content 9.8 (0.0-44) 01/05/21 03:50 POC ABG Base Excess 1.6 01/05/21 14:06 ABG Base Excess -2.3 mmol/L (-2.0-3.0) L 01/05/21 03:50 ABG Hemoglobin 7.7 (12.0-17.5) L 01/05/21 14:06 ABG Oxyhemoglobin 98.7 (94-98) H 01/05/21 14:06 ABG Carboxyhemoglobin 1.5 % (0.0-5.0) 01/05/21 03:50 ABG Methemoglobin 0.3 (0.0-1.5) 01/05/21 14:06 ABG Sodium 131.0 mmol/L (136.0-145.0) L 01/05/21 14:06 ABG Potassium 3.3 mmol/L (3.40-4.50) L 01/05/21 14:06 ABG Chloride 97.0 mmol/L (98-107) L 01/05/21 14:06 ABG Glucose 118 mg/dL (65-95) H 01/05/21 14:06 Oxyhemoglobin 96.7 % (95.0-99.0) 01/05/21 03:50 Carboxyhemoglobin 0.8 (0.5-1.5) 01/05/21 14:06 FiO2 50 % 01/05/21 03:50 FiO2 % 100.0 01/05/21 14:06 Sodium 134 mmol/L (137-145) L 01/05/21 07:22 Potassium 4.4 mmol/L (3.6-5.0) D 01/05/21 07:22 Chloride 93.3 mmol/L (98-107) L 01/05/21 07:22 Carbon Dioxide 22 mmol/L (22-30) 01/05/21 07:22 Anion Gap 23 mmol/L 01/05/21 07:22 BUN 77 mg/dL (9-20) H 01/05/21 07:22 Creatinine 4.2 mg/dL (0.8-1.3) H 01/05/21 07:22 Estimated GFR 15 ml/min 01/05/21 07:22 BUN/Creatinine Ratio 18 % 01/05/21 07:22 Glucose 105 mg/dL (75-100) H 01/05/21 07:22 POC Glucose 111 mg/dL (70-105) H 01/05/21 15:37 Lactic Acid 1.70 mmol/L (0.7-2.0) 12/20/20 16:20 Calcium 8.9 mg/dL (8.4-10.2) D 01/05/21 07:22 Ionized Calcium 3.3 mg/dL (4.8-5.6) L 12/27/20 14:40 Phosphorus 4.90 mg/dL (2.5-4.5) H D 01/05/21 07:22 Magnesium 1.80 mg/dL (1.7-2.3) 01/04/21 06:20 Total Bilirubin 0.50 mg/dL (0.1-1.2) 01/02/21 08:00 AST 47 units/L (5-40) H 01/02/21 08:00 ALT 26 units/L (7-56) 01/02/21 08:00 Alkaline Phosphatase 80 units/L (35-129) 01/02/21 08:00 Troponin T < 0.010 ng/mL (0.00-0.029) 12/20/20 13:58 Total Protein 5.0 g/dL (6.3-8.2) L 01/02/21 08:00 Albumin 1.6 g/dL (3.9-5) L 01/02/21 08:00 Albumin/Globulin Ratio 0.5 % 01/02/21 08:00 Triglycerides 144 mg/dL (2-149) 01/03/21 07:56 Arterial Blood Glucose 118 mg/dL (65-95) H 01/05/21 14:06 Arterial Blood Ionized Calcium 4.4 mg/dL (4.6-5.3) L 01/05/21 14:06 Urine Color Yellow (Yellow) 12/23/20 12:15 Urine Turbidity Cloudy (Clear) 12/23/20 12:15 Urine pH 5.0 (5.0-7.0) 12/23/20 12:15 Ur Specific [place] 1.019 (1.003-1.030) 12/23/20 12:15 Urine Protein <15 mg/dl mg/dL (Negative) 12/23/20 12:15 Urine Glucose (UA) Neg mg/dL (Negative) 12/23/20 12:15 Urine Ketones Neg mg/dL (Negative) 12/23/20 12:15 Urine Blood Sm (Negative) 12/23/20 12:15 Urine Nitrite Neg (Negative) 12/23/20 12:15 Urine Bilirubin Neg (Negative) 12/23/20 12:15 Urine Urobilinogen < 2.0 mg/dL (<2.0) 12/23/20 12:15 Ur Leukocyte Esterase Neg (Negative) 12/23/20 12:15 Urine WBC (Auto) 5.0 /HPF (0.0-6.0) 12/23/20 12:15 Urine RBC (Auto) 2.0 /HPF (0.0-6.0) 12/23/20 12:15 U Epithel Cells (Auto) < 1.0 /HPF (0-13.0) 12/20/20 Unknown Urine Bacteria (Auto) 1+ /HPF (Negative) 12/23/20 12:15 Triple Phos Crystals 2+ 12/23/20 12:15 Hyaline Casts 19 /LPF 12/20/20 Unknown Urine Mucus Few /HPF 12/23/20 12:15 Urine Eosinophils None seen (None Seen) 12/23/20 12:15 Urine Creatinine 78.1 mg/dL (0.1-20.0) H 12/23/20 12:15 Urine Sodium 13 mmol/L 12/23/20 12:15 Fraction Sodium Excret 0.2 12/23/20 12:15 Random Vancomycin 7.9 ug/mL (0-40.0) 12/23/20 12:15 Coronavirus (PCR) Negative (Negative) 12/21/20 Unknown Hepatitis A IgM Ab Non-reactive (NonReactive) 12/30/20 14:40 Hep Bs Antigen Non-reactive (Negative) 12/30/20 14:40 Hep B Core IgM Ab Non-reactive (NonReactive) 12/30/20 14:40 Hepatitis C Antibody Non-reactive (NonReactive) 12/30/20 14:40 Blood Type A NEGATIVE 01/03/21 11:00 Antibody Screen Negative 01/03/21 11:00 Crossmatch See Detail 01/03/21 11:00 Lawrence/IV: Voiding Method Indwelling Catheter Active Medications - Current Medications Current Medications: Generic Name Dose Route Start Last Admin Trade Name Freq PRN Reason Stop Dose Admin Acetaminophen 650 mg 12/21/20 11:51 12/25/20 20:35 Acetaminophen 650 Mg Rect Supp VA 650 mg Q4H PRN Administration TEMP >/=100.4 Bisacodyl 10 mg 12/30/20 11:00 01/05/21 09:03 Bisacodyl 10 Mg Rect Supp VA Not Given QDAY ASCENCION Dextrose 50 ml 12/24/20 10:49 Dextrose 50% In Water (25gm) 50 Ml Syringe IV Q30MIN PRN Hypoglycemia Protocol Famotidine 20 mg 12/26/20 10:00 01/05/21 14:11 Famotidine 20 Mg/2 Ml Inj IV 20 mg DAILY ASCENCION Administration Fentanyl 50 mcg 12/20/20 21:58 01/05/21 13:29 Fentanyl 100 Mcg/2 Ml Inj IV 50 mcg Q10MIN PRN Administration ANALGESIA Fentanyl 50 mcg 01/05/21 11:00 01/05/21 14:02 Fentanyl 100 Mcg/2 Ml Inj IV 50 mcg Q2H PRN Administration sedation Hydrophilic Ointment 1 applic 12/20/20 21:58 Lip Therapy Vaseline TP Q2HR PRN Dry Lips Fentanyl Citrate 2,000 mcg in 100 mls @ 6.01 mls/hr 12/20/20 22:00 01/05/21 13:13 Fentanyl Drip Premix IV 4 mcg/kg/hr TITR ASCENCION 24.04 mls/hr Administration Protocol 1 MCG/KG/HR Propofol 1,000 mg in 100 mls @ 3.606 mls/hr 12/20/20 22:00 01/05/21 16:14 Diprivan 10 Mg/Ml IV 5 mcg/kg/min TITR ASCENCION 3.606 mls/hr Administration Protocol 5 MCG/KG/MIN NORepinephrine/NS 8 MG-250 ML 8 mg in 250 mls @ 3.75 mls/hr 12/21/20 09:00 01/02/21 06:15 Norepinephrine/Ns 8 Mg-250 Ml (Double Conc) IV 0 mcg/min TITRATE ASCENCION 0 mls/hr Titration Protocol 2 MCG/MIN Vasopressin 20 unit/ Sodium 101 mls @ 9.09 mls/hr 12/24/20 09:00 01/02/21 09: 49 Chloride IV 0 units/min TITR ASCENCION 0 mls/hr Titration Protocol 0.03 UNITS/MIN Piperacillin Sod/Tazobactam Sod 4.5 gm in 100 mls @ 200 mls/hr 12/26/20 18:00 01/05/21 05:58 Zosyn/Ns 4.5gm/100ml IV 01/06/21 23:59 200 mls/hr Q12H ASCENCION Administration Protocol Fluconazole 200 mg in 100 mls @ 100 mls/hr 12/26/20 10:00 01/05/21 14:11 Diflucan IV 01/06/21 23:59 100 mls/hr Q24H ASCENCION Administration Protocol Sodium Chloride 100 mls @ 999 mls/hr 01/03/21 10:21 Nacl 0.9% IV MARILU PRN Hypotension Amino Acids/Electrolytes/Dextrose 2,400 mls @ 100 mls/hr 01/04/21 20:00 01/04/21 21:10 Tpn Adult IV 01/05/21 19:59 100 mls/hr DAILY@2000 ASCENCION Administration Protocol Dexmedetomidine HCl 400 mcg/ 104 mls @ 7.322 mls/hr 01/04/21 11:00 01/05/21 15:38 Sodium Chloride IV Infused TITRATE ASCENCION Titration Protocol 0.2 MCG/KG/HR Sodium Chloride 500 mls @ 0 mls/hr 01/05/21 07:56 Nacl 0.9% 500 Ml IV 01/06/21 07:55 ONCE NR As Directed Amino Acids/Electrolytes/Dextrose 2,400 mls @ 100 mls/hr 01/05/21 20:00 Tpn Adult IV 01/06/21 19:59 DAILY@1999 [facility] Protocol Insulin Human Regular 0 units 12/28/20 00:00 01/05/21 12:37 Insulin Regular, Human 100 Units/1 Ml SUB-Q Not Given Q6H [facility] Protocol Multi-Ingred Cream/Lotion/Oil/Oint 1 applic 12/20/20 21:58 01/03/21 01:13 Mineral Oil/Petrolatum, White Ophth Oint 3.5 Gm OU 1 applic Q4HR PRN Administration Dry Eye(s) Sodium Chloride 10 ml 12/20/20 22:00 01/05/21 14:12 Sodium Chloride 0.9% 10 Ml Flush Syringe IV 10 ml BID ASCENCION Administration Sodium Chloride 10 ml 12/20/20 16:42 Sodium Chloride 0.9% 10 Ml Flush Syringe IV PRN PRN LINE FLUSH Nutrition/Malnutrition Assess - Dietary Evaluation Nutrition/Malnutrition Findings: Nutrition Notes Start: 12/21/20 09:06 Freq: Status: Active Protocol: Document 01/05/21 13:58 GER (Rec: 01/05/21 14:33 GER [id number]) Nutrition Notes Initial or Follow up Reassessment Current Diagnosis Acute Kidney Injury,Coronary Artery Disease,Sepsis, Hypertension,Small Bowel Obstruction,Hyperlipidemia Other Pertinent Diagnosis gangrenous small bowel, s/p small bowel ressection, peritonitis Current Diet TPN at 100ml/hr Labs/Tests Na 134 Cl 93.3 BUN 77 Cr 4.2 Phos 4.9 Pertinent Medications Reviewed Height 6 ft Weight 140.8 kg [place] Body Weight (kg) 80.90 BMI 42.0 Weight Status Morbidly Obese Subjective/Other Information Day 13 CPN. Pt remains on vent support; received HD today. Percent of energy/protein needs met: 93% energy 90% pro Burn Absent Trauma Absent #2 Nutrition Diagnosis Increased nutrient needs ( specify in comment below) Diagnosis Progress(for reassessment Continues documentation) #1 Nutrition Diagnosis Inadequate oral intake Diagnosis Progress(for reassessment Continues documentation) Is patient on ventilator? Yes Is Patient Ambulatory and/or Out of Bed No REE-([facility]-confined to bed) 2717.172 Kcal/Kg value to use for calculation 14 Approximate Energy Requirements Using 1971 kcal/Kg Calculation Used for Recommendations Kcal/kg Additional Notes Pro needs >1.2g/kg adjBW: > 133g/day Fluid needs per MD. Nutrition Intervention Nutrition Support: Continue CPN at 100 ml/hr: MVI , 4.2% amino acids. Osmolality: 1312. Kcal 1,760 Protein (gm) 100 Carbohydrates (gm) 400 Fat (gm) 0 Fluid (mL) 2,400 Fiber (gm) 0 Goal #1 Meet needs as best as possible via CPN Follow-Up By: 01/06/21 Additional Comments Labs in am: BMP, Mg, Phos
[2021-01-05] MEDS ORDERED: TOTAL PARENTERAL NUTRITION 2,400 ML IV SCH (20:00)
[2021-01-06] MEDS: INSULIN REGULAR, HUMAN 100 UNITS/1 ML SUB-Q SCH ×5 (00:25→23:45)
[2021-01-06] MEDS: fentaNYL DRIP Premix 2,000 MCG/100 ML BAG IV SCH ×6 (01:40→21:58)
[2021-01-06 04:57] LABS: Calcium 7.8 mg/dL (8.4-10.2)
[2021-01-06] MEDS: PIPERACIL/TAZOBACTA 4.5/NS 100 4.5 GM/100 ML VIAL IV SCH ×2 (06:38→17:24)
[2021-01-06] MEDS: FLUCONAZOLE 200 MG 200 MG/100 ML BAG IV SCH (09:10)
[2021-01-06] MEDS: FAMOTIDINE 20 MG/2 ML INJ IV SCH (09:10)
[2021-01-06 09:47] LABS: Hematocrit 21.8 % (35.5-45.6); Hemoglobin 6.5 gm/dl (11.8-15.2); Mean Corpuscular HGB Conc 30 % (32-34); Mean Corpuscular Volume 100 fl (84-94); Platelet Count 278 K/mm3 (140-440); Red Blood Count 2.18 M/mm3 (3.65-5.03); Red Cell Distribution Width 18.5 % (13.2-15.2)
[2021-01-06] MEDS: fentaNYL 100 MCG/2 ML INJ IV PRN (09:47)
[2021-01-06] MEDS ORDERED: SODIUM CHLORIDE 0.9% 500 ML 500 ML IV ONE ×2 (10:26→17:31)
--- NOTE | 2021-01-06 10:30 | Progress Note ---
Assessment and Plan 60 y/o male with abdominal catastrophe, s/p ex-lap with open abdomen, ventilated for pain control and support. 01/06/21: Will transfuse today. Will speak with surgery about residuals to see if they want to try trickle feeds. Will stop PRN fent and change to Dilaudid given renal function, maybe be longer acting. Able to wean once more sedated. 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 Will discuss with surgery, not ready for this right now. 01/05/21: HD per renal. Continue precedex to help with weaning off sedation. Tolerates PRN pushes of fentanyl. Will repeat ABG and CXR post HD and then attempt to wean FiO2 back down. Prognosis remains guarded. May end up with trach. Continue to try to wean. 01/04/21: HD per renal. Will try PRecedex therapy to see if we can wean off some sedation. Told RT ok to start weaning PEEP. spoke with surgery. Will clamp NG tube and check residuals, if low, will start tube feeding. Guarded prognosis. NO steroids for anything. 01/03/21: Really need volume off. Vasopressors ordered and can be used to help with volume removal as patient has anasarca. Not sure that we would be able to successfully extubate if volume is not removed. Not ready for SBT as he is still requiring a decent amount of support. Would like PEEP at 6 and FiO2 at 40-45% or lower. Will speak with renal about HD again today for volume removal with pressor support to help with this. Continue TPN until gut ready for use. Absolutely no steroids. Guarded prognosis. Patient may need PRBC's, this could be transfused with HD, may help with volume removal. 01/02/21: Now, will start to wean sedation. Continue to wean FiO2 but do not wean PEEP until FiO2 is down to about 40%. Spoke with renal who will dialyze patient today. electrolyte imbalances will be managed by them as well. Abx therapy per ID. Will continue to follow. Guarded prognosis. 12/30/20: No steroids given new anastomosis. Discussed with surgery. Continue sedation and pain control until abdomen is closed. Appears to have metabolic acidosis and some volume overload so feel he would benefit from HD today, will ask renal about this. Electrolyte imbalances should be managed by HD. Guarded to poor prognosis. 12/29/20: Continue all supportive measures. Maintain adequate sedation and pain control given open abdomen. HD per renal, catheter in place. Wean Pressors for MAPS >65. Prognosis still remains guarded to poor. 12/27/20: Agree with bicarb drip. Will go ahead and place vascath today. Will obtain consent and place, likely in groin. Back on pressors unfortunately but much lower doses. Got 3 doses of steroids on yesterday. May have helped. Will discuss with pharmacy and determine the risk benefit ration of continuing. Continue abx therapy as per ID. overall prognosis is very very guarded to poor. 12/26/20: Needs more hydration. Appreciate renal help but will bolus several liters today as I feel the patient is very volume deplete and with persistent fever we have insensible losses as well. Continue TPN. OR today. Wean pressors for MAPs greater than 65. Follow up triglyceride level. Some hypotension is likely related to amount of sedation required to maintain rass of -4. If third agent is needed, could use precedex, ativan etc..Guarded prognosis. 12/25/20: Down to 14 on Levo now. Fluid appears to have helped. Renal following so will defer further bolus types to them but would recommend more fluid. C ontinue sedation at current level. TPN for nutrition. Plans for return to OR on Saturday. Continue all supportive measures. 12/24/20: Adequate sedation to maintain RASS of -4. BP support as needed with pressors. Will give more fluid today. Renal function improving. Agree with D5W but Na will be corrected in TPN as well. TPN per nutrition. Supportive care. 1. Adequate sedation to RASS of -4 2 Support BP with meds as needed 3. Aggressive hydration 4. Follow up surgery recs. cct 31 minutes. Subjective Date of service: 01/06/21 Principal diagnosis: SBO and necrosis of large part of small intestine Interval history: No acute events. had to restart Diprovan for sedation purposes. Had several boluses of fent but no ultimate resolution. Residuals in the last 24 hours was only 100. Objective Vital Signs - 12hr 01/05/21 01/05/21 01/05/21 22:30 23:00 23:30 Temperature Pulse Rate 75 72 70 Pulse Rate [ From Monitor] Respiratory 28 H 28 H 24 Rate Blood Pressure 104/58 105/58 104/57 O2 Sat by Pulse 97 99 97 Oximetry 01/05/21 01/06/21 01/06/21 23:39 00:00 00:30 Temperature 98.8 F Pulse Rate 69 86 Pulse Rate [ 84 From Monitor] Respiratory 28 H Rate Blood Pressure 108/57 152/83 O2 Sat by Pulse 99 97 Oximetry 01/06/21 01/06/21 01/06/21 01:00 01:30 02:00 Temperature Pulse Rate 84 79 73 Pulse Rate [ From Monitor] Respiratory Rate Blood Pressure 131/75 107/66 106/61 O2 Sat by Pulse 99 100 98 Oximetry 01/06/21 01/06/21 01/06/21 02:30 03:00 03:09 Temperature 98.9 F Pulse Rate 71 72 Pulse Rate [ From Monitor] Respiratory Rate Blood Pressure 106/60 117/68 O2 Sat by Pulse 99 99 Oximetry 01/06/21 01/06/21 01/06/21 03:30 03:51 04:00 Temperature Pulse Rate 71 74 71 Pulse Rate [ 73 From Monitor] Respiratory Rate Blood Pressure 105/60 102/58 107/57 O2 Sat by Pulse 99 95 98 Oximetry 01/06/21 01/06/21 01/06/21 04:30 05:00 05:30 Temperature Pulse Rate 96 H 88 73 Pulse Rate [ From Monitor] Respiratory Rate Blood Pressure 97/57 142/79 100/60 O2 Sat by Pulse 100 89 89 Oximetry 01/06/21 01/06/21 01/06/21 06:00 06:30 07:00 Temperature Pulse Rate 70 98 H 94 H Pulse Rate [ From Monitor] Respiratory 19 Rate Blood Pressure 98/57 100/58 138/77 O2 Sat by Pulse 87 94 83 L Oximetry 01/06/21 01/06/21 01/06/21 07:30 07:31 07:36 Temperature 98.4 F Pulse Rate 77 87 Pulse Rate [ From Monitor] Respiratory 0 L Rate Blood Pressure 101/60 O2 Sat by Pulse 97 Oximetry 01/06/21 01/06/21 01/06/21 08:00 08:30 09:00 Temperature Pulse Rate 72 72 74 Pulse Rate [ 73 From Monitor] Respiratory 28 H 25 H 28 H Rate Blood Pressure 102/59 102/59 112/61 O2 Sat by Pulse 99 88 99 Oximetry 01/06/21 01/06/21 09:30 10:00 Temperature Pulse Rate 90 70 Pulse Rate [ From Monitor] Respiratory 17 28 H Rate Blood Pressure 118/73 107/53 O2 Sat by Pulse 95 99 Oximetry Constitutional: comatose (secondary to sedation.), other (critically ill on ventilator) Eyes: non-icteric ENT: oropharynx moist Neck: supple Effort: normal Ascultation: Bilateral: other (coarse BS bilaterally) Cardiovascular: other (tachy, RR; no mrg) Gastrointestinal: other (abdomen open) Integumentary: normal Extremities: no cyanosis, no edema, pink and warm Neurologic: other (sedated) CBC and BMP: 01/06/21 09:00 01/06/21 04:20 ABG, PT/INR, D-dimer: ABG ABG pH 7.383 (7.320-7.450) 01/06/21 04:00 POC ABG pCO2 40.0 mmHg (32.0-48.0) 01/06/21 04:00 ABG pCO2 37.9 mm Hg 01/05/21 03:50 POC ABG pO2 230.5 mmHg (83-108) H 01/06/21 04:00 ABG pO2 136.8 mm Hg (80.0-90.0) H 01/05/21 03:50 POC ABG HCO3 23.3 01/06/21 04:00 ABG O2 Saturation 99.6 (0-100) 01/06/21 04:00 Abnormal lab findings: Abnormal Labs 12/20/20 12/20/20 12/20/20 13:58 13:58 13:58 WBC 41.1 H* RBC 5.59 H Hgb 16.2 H Hct 47.7 H MCV MCHC RDW 15.5 H Plt Count 486 H Seg Neuts % (Manual) Lymphocytes % (Manual) Seg Neutrophils # Man Lymphocytes # (Manual) Monocytes # (Manual) APTT ABG pH POC ABG pCO2 POC ABG pO2 ABG pO2 ABG Base Excess ABG Hemoglobin ABG Oxyhemoglobin ABG Sodium ABG Potassium ABG Chloride ABG Glucose Carboxyhemoglobin Sodium 130 L Potassium Chloride 80.7 L Carbon Dioxide BUN 37 H Creatinine Glucose 101 H POC Glucose Lactic Acid 3.20 H* Calcium Ionized Calcium Phosphorus Magnesium AST Alkaline Phosphatase 142 H Total Protein 6.2 L Albumin 2.2 L Triglycerides Arterial Blood Glucose Arterial Blood Ionized Calcium Urine Creatinine Crossmatch 12/20/20 12/20/20 12/20/20 13:58 20:35 21:30 WBC RBC Hgb Hct MCV MCHC RDW Plt Count Seg Neuts % (Manual) Lymphocytes % (Manual) Seg Neutrophils # Man Lymphocytes # (Manual) Monocytes # (Manual) APTT 49.4 H ABG pH 7.313 L POC ABG pCO2 POC ABG pO2 ABG pO2 104.4 H ABG Base Excess ABG Hemoglobin ABG Oxyhemoglobin ABG Sodium ABG Potassium ABG Chloride ABG Glucose Carboxyhemoglobin Sodium Potassium Chloride Carbon Dioxide BUN Creatinine Glucose POC Glucose 122 H Lactic Acid Calcium Ionized Calcium Phosphorus Magnesium AST Alkaline Phosphatase Total Protein Albumin Triglycerides Arterial Blood Glucose Arterial Blood Ionized Calcium Urine Creatinine Crossmatch 12/21/20 12/21/20 12/21/20 03:06 08:14 08:14 WBC 23.9 H RBC Hgb Hct MCV MCHC RDW 15.7 H Plt Count Seg Neuts % (Manual) 91.0 H Lymphocytes % (Manual) 3.0 L Seg Neutrophils # Man 21.7 H Lymphocytes # (Manual) 0.7 L Monocytes # (Manual) 1.4 H APTT ABG pH 7.464 H POC ABG pCO2 POC ABG pO2 202.9 H ABG pO2 ABG Base Excess ABG Hemoglobin ABG Oxyhemoglobin ABG Sodium 133.7 L ABG Potassium ABG Chloride ABG Glucose 122 H Carboxyhemoglobin Sodium Potassium Chloride Carbon Dioxide BUN 46 H Creatinine Glucose 103 H POC Glucose Lactic Acid Calcium 6.6 L D Ionized Calcium Phosphorus Magnesium AST Alkaline Phosphatase Total Protein 5.4 L Albumin 2.3 L Triglycerides Arterial Blood Glucose 122 H Arterial Blood Ionized Calcium 3.5 L Urine Creatinine Crossmatch 12/21/20 12/21/20 12/22/20 17:18 21:28 04:45 WBC 22.9 H RBC Hgb Hct MCV MCHC RDW 15.7 H Plt Count Seg Neuts % (Manual) Lymphocytes % (Manual) Seg Neutrophils # Man Lymphocytes # (Manual) Monocytes # (Manual) APTT ABG pH POC ABG pCO2 POC ABG pO2 ABG pO2 ABG Base Excess ABG Hemoglobin ABG Oxyhemoglobin ABG Sodium ABG Potassium ABG Chloride ABG Glucose Carboxyhemoglobin Sodium Potassium Chloride Carbon Dioxide BUN Creatinine Glucose POC Glucose 108 H Lactic Acid Calcium Ionized Calcium 4.1 L Phosphorus Magnesium AST Alkaline Phosphatase Total Protein Albumin Triglycerides Arterial Blood Glucose Arterial Blood Ionized Calcium Urine Creatinine Crossmatch 12/22/20 12/22/20 12/22/20 04:45 05:00 11:38 WBC RBC Hgb Hct MCV MCHC RDW Plt Count Seg Neuts % (Manual) Lymphocytes % (Manual) Seg Neutrophils # Man Lymphocytes # (Manual) Monocytes # (Manual) APTT ABG pH 7.462 H POC ABG pCO2 POC ABG pO2 ABG pO2 ABG Base Excess ABG Hemoglobin ABG Oxyhemoglobin ABG Sodium ABG Potassium ABG Chloride ABG Glucose 118 H Carboxyhemoglobin Sodium 146 H Potassium Chloride Carbon Dioxide BUN 45 H Creatinine Glucose 116 H POC Glucose 115 H Lactic Acid Calcium 6.9 L Ionized Calcium Phosphorus Magnesium AST Alkaline Phosphatase Total Protein Albumin Triglycerides Arterial Blood Glucose 118 H Arterial Blood Ionized Calcium 3.8 L Urine Creatinine Crossmatch 12/22/20 12/23/20 12/23/20 23:26 04:43 04:45 WBC 22.2 H RBC Hgb Hct MCV MCHC RDW 16.1 H Plt Count Seg Neuts % (Manual) Lymphocytes % (Manual) Seg Neutrophils # Man Lymphocytes # (Manual) Monocytes # (Manual) APTT ABG pH POC ABG pCO2 POC ABG pO2 ABG pO2 ABG Base Excess ABG Hemoglobin ABG Oxyhemoglobin ABG Sodium 147.4 H ABG Potassium ABG Chloride 112.0 H ABG Glucose 130 H Carboxyhemoglobin 0.4 L Sodium Potassium Chloride Carbon Dioxide BUN Creatinine Glucose POC Glucose 110 H Lactic Acid Calcium Ionized Calcium Phosphorus Magnesium AST Alkaline Phosphatase Total Protein Albumin Triglycerides Arterial Blood Glucose 130 H Arterial Blood Ionized Calcium 3.8 L Urine Creatinine Crossmatch 12/23/20 12/23/20 12/23/20 04:45 05:17 11:22 WBC RBC Hgb Hct MCV MCHC RDW Plt Count Seg Neuts % (Manual) Lymphocytes % (Manual) Seg Neutrophils # Man Lymphocytes # (Manual) Monocytes # (Manual) APTT ABG pH POC ABG pCO2 POC ABG pO2 ABG pO2 ABG Base Excess ABG Hemoglobin ABG Oxyhemoglobin ABG Sodium ABG Potassium ABG Chloride ABG Glucose Carboxyhemoglobin Sodium 154 H D Potassium Chloride 110.9 H Carbon Dioxide BUN 54 H Creatinine 1.8 H Glucose 115 H POC Glucose 116 H 130 H Lactic Acid Calcium 7.0 L Ionized Calcium Phosphorus Magnesium AST Alkaline Phosphatase Total Protein Albumin Triglycerides Arterial Blood Glucose Arterial Blood Ionized Calcium Urine Creatinine Crossmatch 12/23/20 12/23/20 12/23/20 12:15 12:15 23:15 WBC RBC Hgb Hct MCV MCHC RDW Plt Count Seg Neuts % (Manual) Lymphocytes % (Manual) Seg Neutrophils # Man Lymphocytes # (Manual) Monocytes # (Manual) APTT ABG pH POC ABG pCO2 POC ABG pO2 ABG pO2 ABG Base Excess ABG Hemoglobin ABG Oxyhemoglobin ABG Sodium ABG Potassium ABG Chloride ABG Glucose Carboxyhemoglobin Sodium 154 H Potassium Chloride Carbon Dioxide BUN Creatinine 1.5 H Glucose POC Glucose 132 H Lactic Acid Calcium Ionized Calcium Phosphorus Magnesium AST Alkaline Phosphatase Total Protein Albumin Triglycerides Arterial Blood Glucose Arterial Blood Ionized Calcium Urine Creatinine 78.1 H Crossmatch 12/24/20 12/24/20 12/24/20 04:19 04:30 04:30 WBC 18.3 H RBC Hgb Hct MCV MCHC RDW 16.5 H Plt Count Seg Neuts % (Manual) Lymphocytes % (Manual) Seg Neutrophils # Man Lymphocytes # (Manual) Monocytes # (Manual) APTT ABG pH POC ABG pCO2 POC ABG pO2 ABG pO2 ABG Base Excess ABG Hemoglobin ABG Oxyhemoglobin ABG Sodium 149.7 H ABG Potassium ABG Chloride 116.0 H ABG Glucose 180 H Carboxyhemoglobin Sodium 155 H Potassium Chloride 116.1 H Carbon Dioxide BUN 52 H Creatinine 1.5 H Glucose 175 H POC Glucose Lactic Acid Calcium 6.8 L Ionized Calcium Phosphorus Magnesium 3.00 H AST Alkaline Phosphatase Total Protein 5.7 L Albumin 1.8 L Triglycerides Arterial Blood Glucose 180 H Arterial Blood Ionized Calcium 3.7 L Urine Creatinine Crossmatch 12/24/20 12/24/20 12/24/20 05:24 11:21 18:05 WBC RBC Hgb Hct MCV MCHC RDW Plt Count Seg Neuts % (Manual) Lymphocytes % (Manual) Seg Neutrophils # Man Lymphocytes # (Manual) Monocytes # (Manual) APTT ABG pH POC ABG pCO2 POC ABG pO2 ABG pO2 ABG Base Excess ABG Hemoglobin ABG Oxyhemoglobin ABG Sodium ABG Potassium ABG Chloride ABG Glucose Carboxyhemoglobin Sodium Potassium Chloride Carbon Dioxide BUN Creatinine Glucose POC Glucose 153 H 154 H 133 H Lactic Acid Calcium Ionized Calcium Phosphorus Magnesium AST Alkaline Phosphatase Total Protein Albumin Triglycerides Arterial Blood Glucose Arterial Blood Ionized Calcium Urine Creatinine Crossmatch 12/25/20 12/25/20 12/25/20 04:00 07:00 07:00 WBC 17.6 H RBC Hgb Hct MCV MCHC 31 L RDW 16.0 H Plt Count Seg Neuts % (Manual) Lymphocytes % (Manual) Seg Neutrophils # Man Lymphocytes # (Manual) Monocytes # (Manual) APTT ABG pH POC ABG pCO2 POC ABG pO2 ABG pO2 ABG Base Excess ABG Hemoglobin ABG Oxyhemoglobin ABG Sodium 152.5 H ABG Potassium ABG Chloride 119.0 H ABG Glucose 136 H Carboxyhemoglobin Sodium Potassium Chloride Carbon Dioxide BUN Creatinine Glucose POC Glucose Lactic Acid Calcium Ionized Calcium Phosphorus Magnesium 2.70 H AST Alkaline Phosphatase Total Protein Albumin Triglycerides Arterial Blood Glucose 136 H Arterial Blood Ionized Calcium 3.7 L Urine Creatinine Crossmatch 12/25/20 12/25/20 12/25/20 07:00 11:24 16:32 WBC RBC Hgb Hct MCV MCHC RDW Plt Count Seg Neuts % (Manual) Lymphocytes % (Manual) Seg Neutrophils # Man Lymphocytes # (Manual) Monocytes # (Manual) APTT ABG pH POC ABG pCO2 POC ABG pO2 ABG pO2 ABG Base Excess ABG Hemoglobin ABG Oxyhemoglobin ABG Sodium ABG Potassium ABG Chloride ABG Glucose Carboxyhemoglobin Sodium 156 H Potassium Chloride 118.0 H Carbon Dioxide BUN 44 H Creatinine 1.7 H Glucose 126 H POC Glucose 110 H 126 H Lactic Acid Calcium 6.9 L Ionized Calcium Phosphorus Magnesium AST Alkaline Phosphatase Total Protein Albumin Triglycerides Arterial Blood Glucose Arterial Blood Ionized Calcium Urine Creatinine Crossmatch 12/25/20 12/25/20 12/26/20 18:18 23:23 03:30 WBC RBC Hgb Hct MCV MCHC RDW Plt Count Seg Neuts % (Manual) Lymphocytes % (Manual) Seg Neutrophils # Man Lymphocytes # (Manual) Monocytes # (Manual) APTT ABG pH POC ABG pCO2 POC ABG pO2 ABG pO2 ABG Base Excess ABG Hemoglobin 11.8 L ABG Oxyhemoglobin ABG Sodium ABG Potassium 4.7 H ABG Chloride 114.0 H ABG Glucose 132 H Carboxyhemoglobin Sodium 151 H Potassium Chloride 114.3 H Carbon Dioxide BUN 51 H Creatinine 2.6 H D Glucose 122 H POC Glucose 115 H Lactic Acid Calcium 6.4 L Ionized Calcium Phosphorus Magnesium AST Alkaline Phosphatase Total Protein Albumin Triglycerides Arterial Blood Glucose 132 H Arterial Blood Ionized Calcium 3.6 L Urine Creatinine Crossmatch 12/26/20 12/26/20 12/26/20 04:55 06:01 06:01 WBC 21.6 H RBC Hgb Hct MCV MCHC 31 L RDW 16.5 H Plt Count 136 L Seg Neuts % (Manual) Lymphocytes % (Manual) Seg Neutrophils # Man Lymphocytes # (Manual) Monocytes # (Manual) APTT ABG pH POC ABG pCO2 POC ABG pO2 ABG pO2 ABG Base Excess ABG Hemoglobin ABG Oxyhemoglobin ABG Sodium ABG Potassium ABG Chloride ABG Glucose Carboxyhemoglobin Sodium 173 H* D Potassium 6.1 H* D Chloride 137.0 H Carbon Dioxide BUN 73 H Creatinine 3.8 H Glucose 125 H POC Glucose 112 H Lactic Acid Calcium 6.2 L Ionized Calcium Phosphorus 5.70 H D Magnesium 2.90 H AST Alkaline Phosphatase Total Protein Albumin Triglycerides Arterial Blood Glucose Arterial Blood Ionized Calcium Urine Creatinine Crossmatch 12/26/20 12/26/20 12/26/20 08:33 11:19 22:00 WBC RBC Hgb Hct MCV MCHC RDW Plt Count Seg Neuts % (Manual) Lymphocytes % (Manual) Seg Neutrophils # Man Lymphocytes # (Manual) Monocytes # (Manual) APTT ABG pH POC ABG pCO2 POC ABG pO2 ABG pO2 ABG Base Excess ABG Hemoglobin ABG Oxyhemoglobin ABG Sodium ABG Potassium ABG Chloride ABG Glucose Carboxyhemoglobin Sodium 147 H D Potassium 5.8 H D Chloride 108.8 H Carbon Dioxide 21 L BUN 68 H 68 H Creatinine 3.8 H 4.1 H Glucose 144 H 154 H POC Glucose 144 H Lactic Acid Calcium 6.5 L 5.8 L* Ionized Calcium Phosphorus Magnesium AST 215 H Alkaline Phosphatase Total Protein 4.7 L Albumin 1.5 L Triglycerides Arterial Blood Glucose Arterial Blood Ionized Calcium Urine Creatinine Crossmatch 12/26/20 12/26/20 12/27/20 23:13 Unknown 00:25 WBC RBC Hgb 11.1 L Hct MCV MCHC RDW Plt Count Seg Neuts % (Manual) Lymphocytes % (Manual) Seg Neutrophils # Man Lymphocytes # (Manual) Monocytes # (Manual) APTT ABG pH POC ABG pCO2 POC ABG pO2 ABG pO2 ABG Base Excess ABG Hemoglobin ABG Oxyhemoglobin ABG Sodium ABG Potassium ABG Chloride ABG Glucose Carboxyhemoglobin Sodium Potassium Chloride Carbon Dioxide BUN Creatinine Glucose POC Glucose 163 H Lactic Acid Calcium Ionized Calcium Phosphorus 5.60 H Magnesium AST Alkaline Phosphatase Total Protein Albumin Triglycerides Arterial Blood Glucose Arterial Blood Ionized Calcium Urine Creatinine Crossmatch 12/27/20 12/27/20 12/27/20 02:57 04:15 04:15 WBC 28.5 H RBC Hgb 11.2 L Hct MCV MCHC 31 L RDW 16.5 H Plt Count 130 L Seg Neuts % (Manual) Lymphocytes % (Manual) Seg Neutrophils # Man Lymphocytes # (Manual) Monocytes # (Manual) APTT ABG pH 7.238 L POC ABG pCO2 POC ABG pO2 139.1 H ABG pO2 ABG Base Excess ABG Hemoglobin 11.2 L ABG Oxyhemoglobin ABG Sodium 133.8 L ABG Potassium 5.2 H ABG Chloride ABG Glucose 182 H Carboxyhemoglobin Sodium 136 L Potassium 6.0 H Chloride Carbon Dioxide 18 L BUN 68 H Creatinine 4.1 H Glucose 166 H POC Glucose Lactic Acid Calcium 6.2 L Ionized Calcium Phosphorus 7.30 H D Magnesium AST Alkaline Phosphatase Total Protein Albumin Triglycerides 164 H Arterial Blood Glucose 182 H Arterial Blood Ionized Calcium 3.4 L Urine Creatinine Crossmatch 12/27/20 12/27/20 12/27/20 04:50 10:51 11:17 WBC RBC Hgb Hct MCV MCHC RDW Plt Count Seg Neuts % (Manual) Lymphocytes % (Manual) Seg Neutrophils # Man Lymphocytes # (Manual) Monocytes # (Manual) APTT ABG pH POC ABG pCO2 POC ABG pO2 ABG pO2 ABG Base Excess ABG Hemoglobin ABG Oxyhemoglobin ABG Sodium ABG Potassium ABG Chloride ABG Glucose Carboxyhemoglobin Sodium Potassium Chloride Carbon Dioxide BUN Creatinine Glucose POC Glucose 140 H 113 H 154 H Lactic Acid Calcium Ionized Calcium Phosphorus Magnesium AST Alkaline Phosphatase Total Protein Albumin Triglycerides Arterial Blood Glucose Arterial Blood Ionized Calcium Urine Creatinine Crossmatch 12/27/20 12/27/20 12/27/20 12:40 14:40 23:17 WBC RBC Hgb Hct MCV MCHC RDW Plt Count Seg Neuts % (Manual) Lymphocytes % (Manual) Seg Neutrophils # Man Lymphocytes # (Manual) Monocytes # (Manual) APTT ABG pH POC ABG pCO2 POC ABG pO2 ABG pO2 ABG Base Excess ABG Hemoglobin ABG Oxyhemoglobin ABG Sodium ABG Potassium ABG Chloride ABG Glucose Carboxyhemoglobin Sodium 135 L Potassium Chloride Carbon Dioxide 21 L BUN 62 H Creatinine 3.8 H Glucose 132 H POC Glucose 130 H Lactic Acid Calcium 5.6 L* Ionized Calcium 3.3 L Phosphorus Magnesium AST Alkaline Phosphatase Total Protein Albumin Triglycerides Arterial Blood Glucose Arterial Blood Ionized Calcium Urine Creatinine Crossmatch 12/28/20 12/28/20 12/28/20 05:36 07:08 07:28 WBC 27.2 H RBC 3.50 L Hgb 9.6 L Hct 30.8 L MCV MCHC 31 L RDW 16.1 H Plt Count 111 L Seg Neuts % (Manual) 95.0 H Lymphocytes % (Manual) Seg Neutrophils # Man 25.8 H Lymphocytes # (Manual) 0.0 L Monocytes # (Manual) 1.1 H APTT ABG pH 7.200 L POC ABG pCO2 POC ABG pO2 67.2 L ABG pO2 ABG Base Excess ABG Hemoglobin 10.3 L ABG Oxyhemoglobin 89.6 L ABG Sodium 127.8 L ABG Potassium 5.1 H ABG Chloride ABG Glucose 132 H Carboxyhemoglobin 0.4 L Sodium Potassium Chloride Carbon Dioxide BUN Creatinine Glucose POC Glucose 128 H Lactic Acid Calcium Ionized Calcium Phosphorus Magnesium AST Alkaline Phosphatase Total Protein Albumin Triglycerides Arterial Blood Glucose 132 H Arterial Blood Ionized Calcium 3.5 L Urine Creatinine Crossmatch 12/28/20 12/28/20 12/28/20 07:28 11:37 13:25 WBC RBC Hgb Hct MCV MCHC RDW Plt Count Seg Neuts % (Manual) Lymphocytes % (Manual) Seg Neutrophils # Man Lymphocytes # (Manual) Monocytes # (Manual) APTT ABG pH POC ABG pCO2 POC ABG pO2 ABG pO2 ABG Base Excess ABG Hemoglobin ABG Oxyhemoglobin ABG Sodium ABG Potassium ABG Chloride ABG Glucose Carboxyhemoglobin Sodium 131 L 133 L Potassium 5.9 H 5.1 H Chloride 97.1 L Carbon Dioxide 15 L 21 L BUN 70 H 77 H Creatinine 4.0 H 4.4 H Glucose 118 H 140 H POC Glucose 135 H Lactic Acid Calcium 6.3 L 6.3 L Ionized Calcium Phosphorus 7.10 H Magnesium AST 144 H Alkaline Phosphatase Total Protein 4.8 L Albumin 1.3 L Triglycerides Arterial Blood Glucose Arterial Blood Ionized Calcium Urine Creatinine Crossmatch 12/28/20 12/28/20 12/29/20 16:38 23:28 03:08 WBC RBC Hgb Hct MCV MCHC RDW Plt Count Seg Neuts % (Manual) Lymphocytes % (Manual) Seg Neutrophils # Man Lymphocytes # (Manual) Monocytes # (Manual) APTT ABG pH 7.301 L POC ABG pCO2 POC ABG pO2 151.1 H ABG pO2 ABG Base Excess ABG Hemoglobin 8.7 L ABG Oxyhemoglobin 98.2 H ABG Sodium 123.4 L ABG Potassium ABG Chloride 97.0 L ABG Glucose 144 H Carboxyhemoglobin Sodium Potassium Chloride Carbon Dioxide BUN Creatinine Glucose POC Glucose 140 H 134 H Lactic Acid Calcium Ionized Calcium Phosphorus Magnesium AST Alkaline Phosphatase Total Protein Albumin Triglycerides Arterial Blood Glucose 144 H Arterial Blood Ionized Calcium 3.4 L Urine Creatinine Crossmatch 12/29/20 12/29/20 12/29/20 05:20 05:20 06:01 WBC 21.0 H RBC 2.89 L Hgb 8.1 L Hct 25.5 L MCV MCHC RDW 16.1 H Plt Count 124 L Seg Neuts % (Manual) Lymphocytes % (Manual) Seg Neutrophils # Man Lymphocytes # (Manual) Monocytes # (Manual) APTT ABG pH POC ABG pCO2 POC ABG pO2 ABG pO2 ABG Base Excess ABG Hemoglobin ABG Oxyhemoglobin ABG Sodium ABG Potassium ABG Chloride ABG Glucose Carboxyhemoglobin Sodium 131 L Potassium Chloride 93.4 L Carbon Dioxide BUN 79 H Creatinine 4.7 H Glucose 122 H POC Glucose 108 H Lactic Acid Calcium 5.5 L* Ionized Calcium Phosphorus 5.70 H Magnesium 1.60 L AST Alkaline Phosphatase Total Protein Albumin Triglycerides Arterial Blood Glucose Arterial Blood Ionized Calcium Urine Creatinine Crossmatch 12/29/20 12/29/20 12/29/20 10:04 11:27 17:31 WBC RBC Hgb Hct MCV MCHC RDW Plt Count Seg Neuts % (Manual) Lymphocytes % (Manual) Seg Neutrophils # Man Lymphocytes # (Manual) Monocytes # (Manual) APTT ABG pH POC ABG pCO2 POC ABG pO2 ABG pO2 ABG Base Excess ABG Hemoglobin ABG Oxyhemoglobin ABG Sodium ABG Potassium ABG Chloride ABG Glucose Carboxyhemoglobin Sodium Potassium Chloride Carbon Dioxide BUN Creatinine Glucose POC Glucose 107 H 112 H 110 H Lactic Acid Calcium Ionized Calcium Phosphorus Magnesium AST Alkaline Phosphatase Total Protein Albumin Triglycerides Arterial Blood Glucose Arterial Blood Ionized Calcium Urine Creatinine Crossmatch 12/30/20 12/30/20 12/30/20 03:31 08:06 17:39 WBC RBC Hgb Hct MCV MCHC RDW Plt Count Seg Neuts % (Manual) Lymphocytes % (Manual) Seg Neutrophils # Man Lymphocytes # (Manual) Monocytes # (Manual) APTT ABG pH 7.261 L POC ABG pCO2 POC ABG pO2 123.1 H ABG pO2 ABG Base Excess ABG Hemoglobin 8.7 L ABG Oxyhemoglobin ABG Sodium 123.2 L ABG Potassium ABG Chloride 96.0 L ABG Glucose 112 H Carboxyhemoglobin Sodium 128 L Potassium Chloride 90.7 L Carbon Dioxide 21 L BUN 86 H Creatinine 4.9 H Glucose 107 H POC Glucose 134 H Lactic Acid Calcium 6.2 L Ionized Calcium Phosphorus 5.30 H Magnesium 1.50 L AST Alkaline Phosphatase Total Protein Albumin Triglycerides Arterial Blood Glucose 112 H Arterial Blood Ionized Calcium 3.2 L Urine Creatinine Crossmatch 12/30/20 12/31/20 12/31/20 22:45 02:14 04:40 WBC RBC Hgb Hct MCV MCHC RDW Plt Count Seg Neuts % (Manual) Lymphocytes % (Manual) Seg Neutrophils # Man Lymphocytes # (Manual) Monocytes # (Manual) APTT ABG pH 7.267 L POC ABG pCO2 POC ABG pO2 ABG pO2 ABG Base Excess ABG Hemoglobin 8.0 L ABG Oxyhemoglobin 93.7 L ABG Sodium ABG Potassium ABG Chloride 95.0 L ABG Glucose 108 H Carboxyhemoglobin 1.7 H Sodium 126 L Potassium Chloride 90.3 L Carbon Dioxide 20 L BUN 70 H Creatinine 4.3 H Glucose 209 H POC Glucose 109 H Lactic Acid Calcium 6.6 L Ionized Calcium Phosphorus 4.70 H Magnesium 1.60 L AST Alkaline Phosphatase Total Protein Albumin Triglycerides 157 H Arterial Blood Glucose 108 H Arterial Blood Ionized Calcium 3.7 L Urine Creatinine Crossmatch 12/31/20 12/31/20 01/01/21 16:23 23:21 04:00 WBC 18.0 H RBC 2.75 L Hgb 7.7 L Hct 23.9 L MCV MCHC RDW 15.6 H Plt Count Seg Neuts % (Manual) 91.0 H Lymphocytes % (Manual) 6.0 L Seg Neutrophils # Man 16.4 H Lymphocytes # (Manual) 1.1 L Monocytes # (Manual) APTT ABG pH 7.264 L POC ABG pCO2 POC ABG pO2 74.8 L ABG pO2 ABG Base Excess ABG Hemoglobin 7.1 L ABG Oxyhemoglobin 92.1 L ABG Sodium 124.9 L ABG Potassium ABG Chloride 95.0 L ABG Glucose 111 H Carboxyhemoglobin 1.7 H Sodium Potassium Chloride Carbon Dioxide BUN Creatinine Glucose POC Glucose 125 H Lactic Acid Calcium Ionized Calcium Phosphorus Magnesium AST Alkaline Phosphatase Total Protein Albumin Triglycerides Arterial Blood Glucose 111 H Arterial Blood Ionized Calcium 4.0 L Urine Creatinine Crossmatch 01/01/21 01/01/21 01/01/21 05:50 13:41 15:55 WBC RBC Hgb Hct MCV MCHC RDW Plt Count Seg Neuts % (Manual) Lymphocytes % (Manual) Seg Neutrophils # Man Lymphocytes # (Manual) Monocytes # (Manual) APTT ABG pH 7.148 L 7.207 L POC ABG pCO2 53.1 H POC ABG pO2 57.3 L 138.4 H ABG pO2 ABG Base Excess ABG Hemoglobin 9.0 L 8.3 L ABG Oxyhemoglobin 83.2 L ABG Sodium 126.2 L 124.5 L ABG Potassium ABG Chloride 95.0 L 95.0 L ABG Glucose 96 H 120 H Carboxyhemoglobin Sodium 131 L Potassium Chloride 93.3 L Carbon Dioxide 21 L BUN 67 H Creatinine 4.2 H Glucose POC Glucose Lactic Acid Calcium 7.1 L Ionized Calcium Phosphorus Magnesium AST 60 H Alkaline Phosphatase Total Protein 4.8 L Albumin 1.4 L Triglycerides Arterial Blood Glucose 96 H 120 H Arterial Blood Ionized Calcium 4.1 L 3.9 L Urine Creatinine Crossmatch 01/01/21 01/01/21 01/02/21 17:09 23:24 03:47 WBC RBC Hgb Hct MCV MCHC RDW Plt Count Seg Neuts % (Manual) Lymphocytes % (Manual) Seg Neutrophils # Man Lymphocytes # (Manual) Monocytes # (Manual) APTT ABG pH 7.276 L POC ABG pCO2 POC ABG pO2 173.6 H ABG pO2 ABG Base Excess ABG Hemoglobin 7 L ABG Oxyhemoglobin ABG Sodium 122.4 L ABG Potassium ABG Chloride 94.0 L ABG Glucose 118 H Carboxyhemoglobin Sodium Potassium Chloride Carbon Dioxide BUN Creatinine Glucose POC Glucose 124 H 119 H Lactic Acid Calcium Ionized Calcium Phosphorus Magnesium AST Alkaline Phosphatase Total Protein Albumin Triglycerides Arterial Blood Glucose 118 H Arterial Blood Ionized Calcium 4.0 L Urine Creatinine Crossmatch 01/02/21 01/02/21 01/02/21 05:33 08:00 08:00 WBC 19.7 H RBC 2.53 L Hgb 7.1 L Hct 22.0 L MCV MCHC RDW 16.4 H Plt Count Seg Neuts % (Manual) Lymphocytes % (Manual) Seg Neutrophils # Man Lymphocytes # (Manual) Monocytes # (Manual) APTT ABG pH POC ABG pCO2 POC ABG pO2 ABG pO2 ABG Base Excess ABG Hemoglobin ABG Oxyhemoglobin ABG Sodium ABG Potassium ABG Chloride ABG Glucose Carboxyhemoglobin Sodium 127 L Potassium Chloride 89.3 L Carbon Dioxide 19 L BUN 82 H Creatinine 5.0 H Glucose 103 H POC Glucose 107 H Lactic Acid Calcium 7.8 L Ionized Calcium Phosphorus 6.40 H Magnesium AST 47 H Alkaline Phosphatase Total Protein 5.0 L Albumin 1.6 L Triglycerides Arterial Blood Glucose Arterial Blood Ionized Calcium Urine Creatinine Crossmatch 01/02/21 01/03/21 01/03/21 17:25 07:56 09:47 WBC 17.7 H RBC 2.19 L Hgb 6.2 L Hct 18.5 L* MCV MCHC RDW 16.1 H Plt Count Seg Neuts % (Manual) Lymphocytes % (Manual) Seg Neutrophils # Man Lymphocytes # (Manual) Monocytes # (Manual) APTT ABG pH POC ABG pCO2 POC ABG pO2 ABG pO2 ABG Base Excess ABG Hemoglobin ABG Oxyhemoglobin ABG Sodium ABG Potassium ABG Chloride ABG Glucose Carboxyhemoglobin Sodium 130 L Potassium 3.5 L Chloride 90.3 L Carbon Dioxide BUN 68 H Creatinine 3.9 H Glucose 103 H POC Glucose 116 H Lactic Acid Calcium 8.0 L Ionized Calcium Phosphorus 4.80 H D Magnesium AST Alkaline Phosphatase Total Protein Albumin Triglycerides Arterial Blood Glucose Arterial Blood Ionized Calcium Urine Creatinine Crossmatch 01/03/21 01/03/21 01/04/21 11:00 19:00 03:12 WBC 17.0 H RBC 2.51 L Hgb 7.1 L Hct 21.5 L MCV MCHC RDW 16.6 H Plt Count Seg Neuts % (Manual) Lymphocytes % (Manual) Seg Neutrophils # Man Lymphocytes # (Manual) Monocytes # (Manual) APTT ABG pH 7.463 H POC ABG pCO2 POC ABG pO2 72.2 L ABG pO2 ABG Base Excess ABG Hemoglobin 6.2 L ABG Oxyhemoglobin 91.8 L ABG Sodium 128.4 L ABG Potassium 3.3 L ABG Chloride 96.0 L ABG Glucose 112 H Carboxyhemoglobin Sodium Potassium Chloride Carbon Dioxide BUN Creatinine Glucose POC Glucose Lactic Acid Calcium Ionized Calcium Phosphorus Magnesium AST Alkaline Phosphatase Total Protein Albumin Triglycerides Arterial Blood Glucose 112 H Arterial Blood Ionized Calcium 4.3 L Urine Creatinine Crossmatch See Detail 01/04/21 01/04/21 01/04/21 05:16 06:20 06:20 WBC 18.5 H RBC 2.53 L Hgb 7.4 L Hct 21.9 L MCV MCHC RDW 15.8 H Plt Count Seg Neuts % (Manual) Lymphocytes % (Manual) Seg Neutrophils # Man Lymphocytes # (Manual) Monocytes # (Manual) APTT ABG pH POC ABG pCO2 POC ABG pO2 ABG pO2 ABG Base Excess ABG Hemoglobin ABG Oxyhemoglobin ABG Sodium ABG Potassium ABG Chloride ABG Glucose Carboxyhemoglobin Sodium 135 L Potassium Chloride 95.2 L Carbon Dioxide BUN 56 H Creatinine 3.2 H Glucose 109 H POC Glucose 123 H Lactic Acid Calcium 7.6 L Ionized Calcium Phosphorus Magnesium AST Alkaline Phosphatase Total Protein Albumin Triglycerides Arterial Blood Glucose Arterial Blood Ionized Calcium Urine Creatinine Crossmatch 01/05/21 01/05/21 01/05/21 03:50 07:22 07:22 WBC 23.8 H RBC 2.93 L Hgb 8.2 L Hct 25.1 L MCV MCHC RDW 16.5 H Plt Count Seg Neuts % (Manual) Lymphocytes % (Manual) Seg Neutrophils # Man Lymphocytes # (Manual) Monocytes # (Manual) APTT ABG pH POC ABG pCO2 POC ABG pO2 ABG pO2 136.8 H ABG Base Excess -2.3 L ABG Hemoglobin 6.9 L ABG Oxyhemoglobin ABG Sodium ABG Potassium ABG Chloride ABG Glucose Carboxyhemoglobin Sodium 134 L Potassium Chloride 93.3 L Carbon Dioxide BUN 77 H Creatinine 4.2 H Glucose 105 H POC Glucose Lactic Acid Calcium Ionized Calcium Phosphorus 4.90 H D Magnesium AST Alkaline Phosphatase Total Protein Albumin Triglycerides Arterial Blood Glucose Arterial Blood Ionized Calcium Urine Creatinine Crossmatch 01/05/21 01/05/21 01/05/21 11:02 14:06 15:37 WBC RBC Hgb Hct MCV MCHC RDW Plt Count Seg Neuts % (Manual) Lymphocytes % (Manual) Seg Neutrophils # Man Lymphocytes # (Manual) Monocytes # (Manual) APTT ABG pH POC ABG pCO2 POC ABG pO2 332.3 H ABG pO2 ABG Base Excess ABG Hemoglobin 7.7 L ABG Oxyhemoglobin 98.7 H ABG Sodium 131.0 L ABG Potassium 3.3 L ABG Chloride 97.0 L ABG Glucose 118 H Carboxyhemoglobin Sodium Potassium Chloride Carbon Dioxide BUN Creatinine Glucose POC Glucose 118 H 111 H Lactic Acid Calcium Ionized Calcium Phosphorus Magnesium AST Alkaline Phosphatase Total Protein Albumin Triglycerides Arterial Blood Glucose 118 H Arterial Blood Ionized Calcium 4.4 L Urine Creatinine Crossmatch 01/05/21 01/06/21 01/06/21 23:18 04:00 04:20 WBC RBC Hgb Hct MCV MCHC RDW Plt Count Seg Neuts % (Manual) Lymphocytes % (Manual) Seg Neutrophils # Man Lymphocytes # (Manual) Monocytes # (Manual) APTT ABG pH POC ABG pCO2 POC ABG pO2 230.5 H ABG pO2 ABG Base Excess ABG Hemoglobin 7.9 L ABG Oxyhemoglobin 98.5 H ABG Sodium 129.4 L ABG Potassium ABG Chloride 97.0 L ABG Glucose 117 H Carboxyhemoglobin Sodium 133 L Potassium Chloride 94.4 L Carbon Dioxide BUN 62 H Creatinine 3.6 H Glucose 110 H POC Glucose 110 H Lactic Acid Calcium 7.8 L Ionized Calcium Phosphorus Magnesium AST Alkaline Phosphatase Total Protein Albumin Triglycerides Arterial Blood Glucose 117 H Arterial Blood Ionized Calcium 4.5 L Urine Creatinine Crossmatch 01/06/21 01/06/21 05:28 09:00 WBC 15.2 H RBC 2.18 L Hgb 6.5 L Hct 21.8 L MCV 100 H MCHC 30 L RDW 18.5 H Plt Count Seg Neuts % (Manual) Lymphocytes % (Manual) Seg Neutrophils # Man Lymphocytes # (Manual) Monocytes # (Manual) APTT ABG pH POC ABG pCO2 POC ABG pO2 ABG pO2 ABG Base Excess ABG Hemoglobin ABG Oxyhemoglobin ABG Sodium ABG Potassium ABG Chloride ABG Glucose Carboxyhemoglobin Sodium Potassium Chloride Carbon Dioxide BUN Creatinine Glucose POC Glucose 109 H Lactic Acid Calcium Ionized Calcium Phosphorus Magnesium AST Alkaline Phosphatase Total Protein Albumin Triglycerides Arterial Blood Glucose Arterial Blood Ionized Calcium Urine Creatinine Crossmatch
--- NOTE | 2021-01-06 11:12 | Progress Note ---
<LILIYAMARGE SohaReagan - Last Filed: 01/06/21 13:04> Assessment and Plan Assessment and plan: This is a 60-year-old male with obesity, hypertension, nicotine dependence, PVD s/p stent placement on dual antiplatelet therapy, hyperlipidemia, OA, GERD, ventral hernia and small bowel obstruction who was admitted with small bowel obstruction and peritonitis Septic Shock, POA (presented with leukocytosis, tachycardia, tachypnea,febrile and evidence of peritonitis) COVID-19 PUI, ruled out Small bowel obstruction with peritonitis Ventral hernia s/p repair Leukocytosis Anemia Hyponatremia Hypochloremia Acute Kidney Injury Obesity Hypertension Nicotine dependence CAD s/p stent placement Hyperlipidemia Osteoarthritis GERD -[facility], surgery, infectious disease, nephrology consulted, appreciate recommendations -12/20 CT abdomen/pelvis showed high-grade small bowel obstruction related to severe complex ventral abdominal wall hernias, progressed in appearance from prior exam from 09/12/2020 without evidence of pneumonitis or pneumoperitoneum, patchy bibasilar airspace disease concern for atypical infectious process/pneumonitis -12/20 s/p ex lap, extensive lysis of adhesions, small bowel resection (removal of 70 cm necrotic small bowel segment), peritoneal lavage and ABThera abdominal wound VAC placement -12/23 s/p abdominal exploration, small bowel resection, peritoneal lavage, ABThera wound VAC placement -12/26 s/p ex lap, small bowel resection, peritoneal lavage, ABThera wound VAC placement -12/29 s/p ex lap, small bowel resection, small bowel anastomosis and ABThera wound VAC placement -01/01 s/p myocutaneous flap creation, abdominal wall component separation and placement of phasix mesh with surgery yesterday where his abdomen was closed and 2 LAURA drains were placed on either side of his midline between fascia and subcu tissue. -12/30 initiated on HD by nephro -IV abx per ID: Zosyn, fluconazole -NGT, clamping trials underway -NPO for now, TPN -SSI, Accucheck q6 -s/p Vasopressor support as tolerated -HD per nephro -12/23 Fractional excretion of sodium calculated at 0.16 indicating prerenal state -COVID-19 PCR negative -On mechanical ventilation, wean as tolerated, VAP bundle -Propofol, fentanyl, IV push Dilaudid, propofol and Precedex -Transfuse for Hbg < 7 -Trend CBC, BMP, Mg, Phos GI/DVT prophylaxis: PPI, SCDs to bilateral lower extremities while in bed, heparin subcu Disposition: ICU Lines: PICC placed 01/05, Femoral trialysis, IJ to be removed The high probability of a clinically significant, sudden or life threatening deterioration of the [multi] system(s) required my full and direct attention, intervention and personal management. The aggregate critical care time was [35] minutes. This time is in addition to time spent performing reported procedures but includes the following: [x] Data Review and interpretation [x] Patient assessment and monitoring of vital signs [x] Documentation [x] Medication orders and management History Interval history: This is a 60-year-old male with obesity, hypertension, nicotine dependence, PVD s/p stent placement on dual antiplatelet therapy, hyperlipidemia, OA, GERD, ventral hernia with SBO who presents to the emergency department on 12/20 with severe, diffuse, worsened with movement, slightly relieved with rest abdominal pain rated at 10/10 with decreased oral intake, nausea and multiple episodes of vomiting. Patient underwent a CT of his abdomen/pelvis and was found to have evidence of small bowel obstruction as well as clinical findings consistent with acute peritonitis. Patient was admitted to the hospital service with acute peritonitis and incarcerated ventral hernia with consults to [facility] and surgery. 12/21: Patient is status post ex lap, extensive lysis of adhesions, small bowel resection, peritoneal lavage and ABThera abdominal wound VAC placement by Dr. Tena and Dr. Brumfield on 12/20 with removal of a 70 cm segment of necrotic small bowel. Patient was intubated and sedated on propofol 4 at the time of my examination on Assist-control, rate of 24, PEEP of 6, tidal volume of 550 and FiO2 35%. Patient needed to be deeply sedated and there was a became hypotensive. Patient was started on patient for support with Levophed and received bolus of IVF. 12/22: Patient was febrile to 103 and vancomycin and Diflucan were added by [facility] and infectious disease was consulted and they increased Zosyn and stop vancomycin. Patient was given additional 1 L bolus today for CVP goal of 10-12. At the time of examination patient was on Levophed, propofol and fentanyl CMV tidal volume 500, rate of 24, PEEP of 6 and FiO2 65%. Plan for OR tomorrow 12/23: Patient Cr/BUN noted to be increased and nephrology was consulted. ID decreased the zosyn dose d/r renal function. Urine studies ordered. [place] placed today. LR boluses per [facility], TPN to be started. Fractional excretion of sodium calculated at 0.16 indicating prerenal state 12/24: Patient is status post abdominal exploration, small bowel resection of 4 to 5 cm segment of dusky small bowel, peritoneal lavage and ABThera wound VAC placement on 12/23 with surgery, leukocytosis and renal function is improving, worsening hypernatremia and hyperchloremia. Patient will be started on TPN today. We will place on SSI/Accu-Cheks every every 6 hours. Patient noted to be nearly maxed on Levophed and vasopressin was ordered. Remains sedated and on MV 12/25: Leukocytosis continues to improve, given Ca Gluconate today, Hypernatremia, Cr and hyperchorlemia slightly worsened today. Patient is sedated with propofol and fentanyl on CMV TV 500, Rate 24, Peep 6, FiO2 50%. He remains on levophed. Possible OR Saturday. 12/26 Patient presented with small bowel obstruction, is status post ex lap, extensive lysis of adhesions, small bowel resection, peritoneal lavage and ABThera abdominal wound VAC placement by Dr. Tena and Dr. Brumfield on 12/20 with removal of a 70 cm segment of necrotic small bowel. Was taken back to OR on 12/23 s/p Abdominal exploration, Small bowel resection, Peritoneal lavage, ABThera wound VAC placement. he is still having fever. Poss going to OR again today. Sepsis managed by ID. He is on Diflucan, Zosyn. He is on Levophed. 6/ s/p ex lap, extensive lysis of adhesions, small bowel resection (removal of 70 cm necrotic small bowel segment), peritoneal lavage and ABThera abdominal wound VAC placement. Still having fever Still on vent 12/28: Patient is orally intubated with AC mode ventilation rate 24, tidal volume 500, FiO2 75% and PEEP of 6. POD#8 s/p ex lap and small bowel resection for necrotic bowel secondary to incarcerated ventral hernia left with open abdomen. POD#5 s/p abdominal exploration with segmental small bowel resection. abthera placement POD#2 s/p abdominal exploration, small bowel resection for ischemia, abthera placement -[facility], surgery, infectious disease, nephrology consulted, appreciate recommendations -IV abx per ID: Zosyn, fluconazole -NGT to LIWS -NPO for now, TPN -SSI, Accucheck q6 -Vasopressor support with levophed -On mechanical ventilation, wean as tolerated, VAP bundle -Sedated with propofol and analgesia with fentanyl drip -Trend CBC, BMP, Mg, Phos -GI/DVT prophylaxis: PPI, SCDs to bilateral lower extremities while in bed, avoid chemical anticoagulation to cleared by surgery 12/29: Patient underwent abdominal exploration, small bowel resection, small bowel anastomosis and ABThera wound VAC placement this a.m. Patient remains on AC mode ventilation with a rate of 24, tidal volume 500, FiO2 65% and PEEP of 6. Continue antibiotics per ID recommendations. Continue vasopressor support as needed. Continue TPN for nutritional support. 12/30: Patient currently with AC mode ventilation rate of 24, tidal volume 500, FiO2 60% and PEEP of 6. Patient underwent further surgery yesterday with another abdominal exploration, small bowel resection, small bowel anastomosis and replacement of the ABThera wound VAC. Patient continues to require va sopressor support with vasopressin and Levophed. Continue TPN for nutrition. Continue propofol and fentanyl for sedation. Continue Zosyn per ID recommendations 12: Patient currently with AC mode ventilation rate of 24, tidal volume 500, FiO2 50% and PEEP of 6. POD#12 s/p ex lap and small bowel resection for necrotic bowel secondary to incarcerated ventral hernia left with open abdomen. POD#9 s/p abdominal exploration with segmental small bowel resection. abthera placement POD#3 s/p abdominal exploration, small bowel resection for ischemia, abthera placement POD#2 s/p abdominal exploration with small bowel anastamosis and abthera vac placement Continue hemodialysis per nephrology recommendations. Surgery plans for abdominal washout and bowel examination on Saturday. If anastamosis looks viable and no other issues, surgery plans to close his abdomen. 01/01: Continue current ventilator settings per pulmonary monitor ABG. Continue antibiotics per ID recommendations. Surgery plans for abdominal washout and bowel examination. If anastamosis looks viable and no other issues, surgery plans to close his abdomen. Wean pressors to maintain MAP > 65. Continue TPN for nutritional support. Hemodialysis per nephrology recommendations. Prognosis remains guarded. 01/02: At the time my examination patient was only on vasopressin for vasopressor support, sedated on 30 mcg of propofol and 4 mcg of fentanyl. Patient was on CMV tidal volume 500, rate of 12, PEEP of 10 and 50% FiO2. Patient remains on TPN and with NG tube to low intermittent suction. Patient underwent a myocutaneous flap creation, abdominal wall component separation and placement of phasix mesh with surgery yesterday where his abdomen was closed and 2 LAURA drains were placed on either side of his midline between fascia and subcu tissue. Per infectious his antibiotics will continue until 5 days postop from a final surgery. Patient has increasing leukocytosis which are likely reactive to surgery and patient will have hemodialysis today for clearance and volume removal. Patient sedation and mechanical ventilation will be weaned for extubation. 01/03: Patient H/H is 6.2/18.5 and he is being transfused 2 units PRBC with hemodialysis today. Patient has slight hypokalemia but TPN has been adjusted to address potassium. Patient continues to have hyponatremia, hypochloremia and hyperphosphatemia closely improved. The time my examination patient sedated on fentanyl and propofol and LAURA drainage noted to be more serosanguineous. Patient was on assist control with TV 500, PEEP of 8, rate of 28 and FiO2 40%. Patient remains off vasopressor support. No acute overnight events reported 01/04: Patient sedated on propofol and fentanyl. RN reported bowel movement overnight. Precedex drip started. NG tube clamped and may start trickle tube feedings later if patient does not have high residuals. CCM continues to wean ventilation as tolerated. On my exam patient is on CMV tidal volume 500 rate of 28, PEEP of 8 and 40% FiO2. Patient is having periods of agitation and FiO2 had to be increased for hypoxia. Mucor species in tracheal aspirate but ID believes this is colonization. 01/05: Patient is severely agitated and received multiple IV push fentanyl. Patient was ultimately started on propofol. He received hemodialysis today. Patient had approximately 400 mL of NG output overnight. NG tube continues to be on suction. Leukocytosis worsened today. 01/06: Patient is agitated despite fentanyl pushes and Dilaudid was ordered, patient noted to be anemic with a hemoglobin of 6.5 and will be transfused 1 unit PRBC today. Nephrology does not plan to dialyze him today and to keep him on Saturday, , Saturday schedule. No acute events reported overnight. Patient NG tube residuals continue to decrease and surgery has cleared for trickle tube feeds which has been communicated to dietitian. Hospitalist Physical - Constitutional Vitals: Temp Pulse Resp BP Pulse Ox 98.4 F 70 28 H 107/53 99 01/06/21 07:31 01/06/21 10:00 01/06/21 10:00 01/06/21 10:00 01/06/21 10:00 General appearance: Present: mild distress, well-nourished HEART Score - HEART Score Troponin: Troponin T < 0.010 ng/mL (0.00-0.029) 12/20/20 13:58 Results - Labs CBC & Chem 7: 01/06/21 09:00 01/06/21 04:20 Labs: Laboratory Last Values WBC 15.2 K/mm3 (4.5-11.0) H 01/06/21 09:00 RBC 2.18 M/mm3 (3.65-5.03) L 01/06/21 09:00 Hgb 6.5 gm/dl (11.8-15.2) L 01/06/21 09:00 Hct 21.8 % (35.5-45.6) L 01/06/21 09:00 MCV 100 fl (84-94) H 01/06/21 09:00 MCH 30 pg (28-32) 01/06/21 09:00 MCHC 30 % (32-34) L 01/06/21 09:00 RDW 18.5 % (13.2-15.2) H 01/06/21 09:00 Plt Count 278 K/mm3 (140-440) 01/06/21 09:00 Add Manual Diff Complete 12/31/20 16:23 Total Counted 100 12/31/20 16:23 Seg Neutrophils % [employer] Operator 12/31/20 16:23 Seg Neuts % (Manual) 91.0 % (40.0-70.0) H 12/31/20 16:23 Band Neutrophils % 2.0 % 12/31/20 16:23 Lymphocytes % (Manual) 6.0 % (13.4-35.0) L 12/31/20 16:23 Monocytes % (Manual) 1.0 % (0.0-7.3) 12/31/20 16:23 Nucleated RBC % Not Reportable 12/31/20 16:23 Seg Neutrophils # Man 16.4 K/mm3 (1.8-7.7) H 12/31/20 16:23 Band Neutrophils # 0.4 K/mm3 12/31/20 16:23 Lymphocytes # (Manual) 1.1 K/mm3 (1.2-5.4) L 12/31/20 16:23 Abs React Lymphs (Man) 0.0 K/mm3 12/31/20 16:23 Monocytes # (Manual) 0.2 K/mm3 (0.0-0.8) 12/31/20 16:23 Eosinophils # (Manual) 0.0 K/mm3 (0.0-0.4) 12/31/20 16:23 Basophils # (Manual) 0.0 K/mm3 (0.0-0.1) 12/31/20 16:23 Metamyelocytes # 0.0 K/mm3 12/31/20 16:23 Myelocytes # 0.0 K/mm3 12/31/20 16:23 Promyelocytes # 0.0 K/mm3 12/31/20 16:23 Blast Cells # 0.0 K/mm3 12/31/20 16:23 WBC Morphology Not Reportable 12/31/20 16:23 Hypersegmented Neuts Not Reportable 12/31/20 16:23 Hyposegmented Neuts Not Reportable 12/31/20 16:23 Hypogranular Neuts Not Reportable 12/31/20 16:23 Smudge Cells Not Reportable 12/31/20 16:23 Toxic Granulation Not Reportable 12/31/20 16:23 Toxic Vacuolation Not Reportable 12/31/20 16:23 Dohle Bodies Not Reportable 12/31/20 16:23 Pelger-Huet Anomaly Not Reportable 12/31/20 16:23 Mirian Rods Not Reportable 12/31/20 16:23 Platelet Estimate Consistent w auto 12/31/20 16:23 Clumped Platelets Not Reportable 12/31/20 16:23 Plt Clumps, EDTA Not Reportable 12/31/20 16:23 Large Platelets Not Reportable 12/31/20 16:23 Giant Platelets Not Reportable 12/31/20 16:23 Platelet Satelliting Not Reportable 12/31/20 16:23 Plt Morphology Comment Not Reportable 12/31/20 16:23 RBC Morphology Not Reportable 12/31/20 16:23 Dimorphic RBCs Not Reportable 12/31/20 16:23 Polychromasia Not Reportable 12/31/20 16:23 Hypochromasia Not Reportable 12/31/20 16:23 Poikilocytosis Not Reportable 12/31/20 16:23 Anisocytosis 1+ 12/31/20 16:23 Microcytosis Not Reportable 12/31/20 16:23 Macrocytosis Not Reportable 12/31/20 16:23 Spherocytes Not Reportable 12/31/20 16:23 Pappenheimer Bodies Not Reportable 12/31/20 16:23 Sickle Cells Not Reportable 12/31/20 16:23 Target Cells Not Reportable 12/31/20 16:23 Tear Drop Cells Not Reportable 12/31/20 16:23 Ovalocytes Not Reportable 12/31/20 16:23 Helmet Cells Not Reportable 12/31/20 16:23 Mart-Lefors Bodies Not Reportable 12/31/20 16:23 Antigo Rings Not Reportable 12/31/20 16:23 Jonathan Cells Not Reportable 12/31/20 16:23 Bite Cells Not Reportable 12/31/20 16:23 Crenated Cell Not Reportable 12/31/20 16:23 Elliptocytes Not Reportable 12/31/20 16:23 Acanthocytes (Spur) Not Reportable 12/31/20 16:23 Rouleaux Not Reportable 12/31/20 16:23 Hemoglobin C Crystals Not Reportable 12/31/20 16:23 Schistocytes Not Reportable 12/31/20 16:23 Malaria parasites Not Reportable 12/31/20 16:23 Dylon Bodies Not Reportable 12/31/20 16:23 Hem Pathologist Commnt No 12/31/20 16:23 APTT 49.4 Sec. (24.2-36.6) H 12/20/20 13:58 ABG pH 7.383 (7.320-7.450) 01/06/21 04:00 POC ABG pCO2 40.0 mmHg (32.0-48.0) 01/06/21 04:00 ABG pCO2 37.9 mm Hg 01/05/21 03:50 POC ABG pO2 230.5 mmHg (83-108) H 01/06/21 04:00 ABG pO2 136.8 mm Hg (80.0-90.0) H 01/05/21 03:50 POC ABG HCO3 23.3 01/06/21 04:00 ABG HCO3 22.4 mmol/L (20.0-26.0) 01/05/21 03:50 ABG O2 Saturation 99.6 (0-100) 01/06/21 04:00 ABG O2 Content 9.8 (0.0-44) 01/05/21 03:50 POC ABG Base Excess -1.6 01/06/21 04:00 ABG Base Excess -2.3 mmol/L (-2.0-3.0) L 01/05/21 03:50 ABG Hemoglobin 7.9 (12.0-17.5) L 01/06/21 04:00 ABG Oxyhemoglobin 98.5 (94-98) H 01/06/21 04:00 ABG Carboxyhemoglobin 1.5 % (0.0-5.0) 01/05/21 03:50 ABG Methemoglobin 0.3 (0.0-1.5) 01/06/21 04:00 ABG Sodium 129.4 mmol/L (136.0-145.0) L 01/06/21 04:00 ABG Potassium 3.6 mmol/L (3.40-4.50) 01/06/21 04:00 ABG Chloride 97.0 mmol/L (98-107) L 01/06/21 04:00 ABG Glucose 117 mg/dL (65-95) H 01/06/21 04:00 Oxyhemoglobin 96.7 % (95.0-99.0) 01/05/21 03:50 Carboxyhemoglobin 0.8 (0.5-1.5) 01/06/21 04:00 FiO2 50 % 01/05/21 03:50 FiO2 % 85.0 01/06/21 04:00 Sodium 133 mmol/L (137-145) L 01/06/21 04:20 Potassium 3.7 mmol/L (3.6-5.0) 01/06/21 04:20 Chloride 94.4 mmol/L (98-107) L 01/06/21 04:20 Carbon Dioxide 26 mmol/L (22-30) 01/06/21 04:20 Anion Gap 16 mmol/L 01/06/21 04:20 BUN 62 mg/dL (9-20) H 01/06/21 04:20 Creatinine 3.6 mg/dL (0.8-1.3) H 01/06/21 04:20 Estimated GFR 17 ml/min 01/06/21 04:20 BUN/Creatinine Ratio 17 % 01/06/21 04:20 Glucose 110 mg/dL (75-100) H 01/06/21 04:20 POC Glucose 109 mg/dL (70-105) H 01/06/21 05:28 Lactic Acid 1.70 mmol/L (0.7-2.0) 12/20/20 16:20 Calcium 7.8 mg/dL (8.4-10.2) L 01/06/21 04:20 Ionized Calcium 3.3 mg/dL (4.8-5.6) L 12/27/20 14:40 Phosphorus 3.90 mg/dL (2.5-4.5) D 01/06/21 04:20 Magnesium 1.90 mg/dL (1.7-2.3) 01/06/21 04:20 Total Bilirubin 0.50 mg/dL (0.1-1.2) 01/02/21 08:00 AST 47 units/L (5-40) H 01/02/21 08:00 ALT 26 units/L (7-56) 01/02/21 08:00 Alkaline Phosphatase 80 units/L (35-129) 01/02/21 08:00 Troponin T < 0.010 ng/mL (0.00-0.029) 12/20/20 13:58 Total Protein 5.0 g/dL (6.3-8.2) L 01/02/21 08:00 Albumin 1.6 g/dL (3.9-5) L 01/02/21 08:00 Albumin/Globulin Ratio 0.5 % 01/02/21 08:00 Triglycerides 144 mg/dL (2-149) 01/03/21 07:56 Arterial Blood Glucose 117 mg/dL (65-95) H 01/06/21 04:00 Arterial Blood Ionized Calcium 4.5 mg/dL (4.6-5.3) L 01/06/21 04:00 Urine Color Yellow (Yellow) 12/23/20 12:15 Urine Turbidity Cloudy (Clear) 12/23/20 12:15 Urine pH 5.0 (5.0-7.0) 12/23/20 12:15 Ur Specific [place] 1.019 (1.003-1.030) 12/23/20 12:15 Urine Protein <15 mg/dl mg/dL (Negative) 12/23/20 12:15 Urine Glucose (UA) Neg mg/dL (Negative) 12/23/20 12:15 Urine Ketones Neg mg/dL (Negative) 12/23/20 12:15 Urine Blood Sm (Negative) 12/23/20 12:15 Urine Nitrite Neg (Negative) 12/23/20 12:15 Urine Bilirubin Neg (Negative) 12/23/20 12:15 Urine Urobilinogen < 2.0 mg/dL (<2.0) 12/23/20 12:15 Ur Leukocyte Esterase Neg (Negative) 12/23/20 12:15 Urine WBC (Auto) 5.0 /HPF (0.0-6.0) 12/23/20 12:15 Urine RBC (Auto) 2.0 /HPF (0.0-6.0) 12/23/20 12:15 U Epithel Cells (Auto) < 1.0 /HPF (0-13.0) 12/20/20 Unknown Urine Bacteria (Auto) 1+ /HPF (Negative) 12/23/20 12:15 Triple Phos Crystals 2+ 12/23/20 12:15 Hyaline Casts 19 /LPF 12/20/20 Unknown Urine Mucus Few /HPF 12/23/20 12:15 Urine Eosinophils None seen (None Seen) 12/23/20 12:15 Urine Creatinine 78.1 mg/dL (0.1-20.0) H 12/23/20 12:15 Urine Sodium 13 mmol/L 12/23/20 12:15 Fraction Sodium Excret 0.2 12/23/20 12:15 Random Vancomycin 7.9 ug/mL (0-40.0) 12/23/20 12:15 Coronavirus (PCR) Negative (Negative) 12/21/20 Unknown Hepatitis A IgM Ab Non-reactive (NonReactive) 12/30/20 14:40 Hep Bs Antigen Non-reactive (Negative) 12/30/20 14:40 Hep B Core IgM Ab Non-reactive (NonReactive) 12/30/20 14:40 Hepatitis C Antibody Non-reactive (NonReactive) 12/30/20 14:40 Blood Type A NEGATIVE 01/03/21 11:00 Antibody Screen Negative 01/03/21 11:00 Crossmatch See Detail 01/03/21 11:00 Lawrence/IV: Voiding Method Indwelling Catheter Active Medications - Current Medications Current Medications: Generic Name Dose Route Start Last Admin Trade Name Freq PRN Reason Stop Dose Admin Acetaminophen 650 mg 12/21/20 11:51 12/25/20 20:35 Acetaminophen 650 Mg Rect Supp RI 650 mg Q4H PRN Administration TEMP >/=100.4 Bisacodyl 10 mg 12/30/20 11:00 01/06/21 09:11 Bisacodyl 10 Mg Rect Supp RI 10 mg QDAY ASCENCION Administration Dextrose 50 ml 12/24/20 10:49 Dextrose 50% In Water (25gm) 50 Ml Syringe IV Q30MIN PRN Hypoglycemia Protocol Famotidine 20 mg 12/26/20 10:00 01/06/21 09:10 Famotidine 20 Mg/2 Ml Inj IV 20 mg DAILY ASCENCION Administration Fentanyl 50 mcg 01/05/21 11:00 01/06/21 09:47 Fentanyl 100 Mcg/2 Ml Inj IV 50 mcg Q2H PRN Administration sedation Hydrophilic Ointment 1 applic 12/20/20 21:58 Lip Therapy Vaseline TP Q2HR PRN Dry Lips Fentanyl Citrate 2,000 mcg in 100 mls @ 6.01 mls/hr 12/20/20 22:00 01/06/21 09:47 Fentanyl Drip Premix IV 4 mcg/kg/hr TITR ASCENCION 24.04 mls/hr Administration Protocol 1 MCG/KG/HR Propofol 1,000 mg in 100 mls @ 3.606 mls/hr 12/20/20 22:00 01/06/21 10:00 Diprivan 10 Mg/Ml IV 20 mcg/kg/min TITR ASCENCION 14.424 mls/hr Administration Protocol 5 MCG/KG/MIN NORepinephrine/NS 8 MG-250 ML 8 mg in 250 mls @ 3.75 mls/hr 12/21/20 09:00 01/02/21 06:15 Norepinephrine/Ns 8 Mg-250 Ml (Double Conc) IV 0 mcg/min TITRATE ASCENCION 0 mls/hr Titration Protocol 2 MCG/MIN Vasopressin 20 unit/ Sodium 101 mls @ 9.09 mls/hr 12/24/20 09:00 01/02/21 09:49 Chloride IV 0 units/min TITR ASCENCION 0 mls/hr Titration Protocol 0.03 UNITS/MIN Piperacillin Sod/Tazobactam Sod 4.5 gm in 100 mls @ 200 mls/hr 12/26/20 18:00 01/06/21 06:38 Zosyn/Ns 4.5gm/100ml IV 01/06/21 23:59 200 mls/hr Q12H ASCENCION Administration Protocol Fluconazole 200 mg in 100 mls @ 100 mls/hr 12/26/20 10:00 01/06/21 09:10 Diflucan IV 01/06/21 23:59 100 mls/hr Q24H ASCENCION Administration Protocol Sodium Chloride 100 mls @ 999 mls/hr 01/03/21 10:21 Nacl 0.9% IV MARILU PRN Hypotension Dexmedetomidine HCl 400 mcg/ 104 mls @ 7.322 mls/hr 01/04/21 11:00 01/06/21 08:10 Sodium Chloride IV 0.4 mcg/kg/hr TITRATE ASCENCION 14.643 mls/hr Administration Protocol 0.2 MCG/KG/HR Amino Acids/Electrolytes/Dextrose 2,400 mls @ 100 mls/hr 01/05/21 20:00 01/05/21 21:56 Tpn Adult IV 01/06/21 19:59 100 mls/hr DAILY@1999 ASCENCION Administration Protocol Insulin Human Regular 0 units 12/28/20 00:00 01/06/21 06:38 Insulin Regular, Human 100 Units/1 Ml SUB-Q Not Given Q6H ASCENCION Protocol Multi-Ingred Cream/Lotion/Oil/Oint 1 applic 12/20/20 21:58 01/03/21 01:13 Mineral Oil/Petrolatum, White Ophth Oint 3.5 Gm OU 1 applic Q4HR PRN Administration Dry Eye(s) Sodium Chloride 10 ml 12/20/20 22:00 01/06/21 09:11 Sodium Chloride 0.9% 10 Ml Flush Syringe IV 10 ml BID ASCENCION Administration Sodium Chloride 10 ml 12/20/20 16:42 Sodium Chloride 0.9% 10 Ml Flush Syringe IV PRN PRN LINE FLUSH Nutrition/Malnutrition Assess - Dietary Evaluation Nutrition/Malnutrition Findings: Nutrition Notes Start: 12/21/20 09:06 Freq: Status: Active Protocol: Document 01/06/21 08:37 CW (Rec: 01/06/21 09:13 CW [email or web address]) Nutrition Notes Initial or Follow up Reassessment Current Diagnosis Acute Kidney Injury,Coronary Artery Disease,Sepsis, Hypertension,Small Bowel Obstruction,Hyperlipidemia Other Pertinent Diagnosis gangrenous small bowel, s/p small bowel ressection, peritonitis Current Diet TPN at 100ml/hr Labs/Tests Na 133 Cl 94.4 BUN 62 Cr 3.6 BG 110 Ca 7.8 Pertinent Medications propofol at 10.818 ml/hr Height 6 ft Weight 140.8 kg [place] Body Weight (kg) 80.90 BMI 42.0 Weight change and time frame 15% weight gain x 17d likely related to fluid Weight Status Morbidly Obese Subjective/Other Information Day 14 on CPN. Pt remains on mechanical vent. Propofol being titrated down, LFTs likely WNL. Will give lipids. Percent of energy/protein needs met: 89%/75% Burn Absent Trauma Absent GI Symptoms Other Current % PO Negligible Minimum of two criteria No Fluid Accumulation Mild (non-severe) #2 Nutrition Diagnosis Increased nutrient needs ( specify in comment below) Diagnosis Progress(for reassessment Continues documentation) #1 Nutrition Diagnosis Inadequate oral intake Diagnosis Progress(for reassessment Continues documentation) Is patient on ventilator? Yes Is Patient Ambulatory and/or Out of Bed No REE-([facility]-confined to bed) 2717.172 Kcal/Kg value to use for calculation 14 Approximate Energy Requirements Using 1971 kcal/Kg Calculation Used for Recommendations Kcal/kg Additional Notes Pro needs >1.2g/kg adjBW: > 133g/day Fluid needs per MD. Nutrition Intervention Change Diet Order: Continue CPN Nutrition Support: Continue CPN at 100 ml/hr: MVI ,lipids, Cl 100 acetate 0 Kcal 2,260 Protein (gm) 100 Carbohydrates (gm) 400 Fat (gm) 50 Fluid (mL) 2,650 Fiber (gm) 0 Goal #1 Meet needs as best as possible via CPN Anticipated Discharge Needs: Unable to determine at this time Follow-Up By: 01/07/21 Additional Comments Labs in AM: BMP mG, Phos <AVTAR MAYO - Last Filed: 01/06/21 16:51> Assessment and Plan Assessment and plan: Agree with assessment and plan as outlined by nurse practitioner, I have personally seen and examined the patient. patient, continues to be intubated. Hemoglobin has fallen below 7, transfuse 1 unit of PRBC today. Trickle feeds have been started by general surgery. There is talk of a trach tube placement, however this will be in the future. Hospitalist Physical - Constitutional Vitals: Temp Pulse Resp BP Pulse Ox 98.5 F 96 H 18 161/87 91 01/06/21 08:00 01/06/21 16:31 01/06/21 16:31 01/06/21 16:31 01/06/21 16:31 HEART Score - HEART Score Troponin: Troponin T < 0.010 ng/mL (0.00-0.029) 12/20/20 13:58 Results - Labs CBC & Chem 7: 01/06/21 09:00 01/06/21 04:20 Labs: Laboratory Last Values WBC 15.2 K/mm3 (4.5-11.0) H 01/06/21 09:00 RBC 2.18 M/mm3 (3.65-5.03) L 01/06/21 09:00 Hgb 6.5 gm/dl (11.8-15.2) L 01/06/21 09:00 Hct 21.8 % (35.5-45.6) L 01/06/21 09:00 MCV 100 fl (84-94) H 01/06/21 09:00 MCH 30 pg (28-32) 01/06/21 09:00 MCHC 30 % (32-34) L 01/06/21 09:00 RDW 18.5 % (13.2-15.2) H 01/06/21 09:00 Plt Count 278 K/mm3 (140-440) 01/06/21 09:00 Add Manual Diff Complete 12/31/20 16:23 Total Counted 100 12/31/20 16:23 Seg Neutrophils % [employer] Operator 12/31/20 16:23 Seg Neuts % (Manual) 91.0 % (40.0-70.0) H 12/31/20 16:23 Band Neutrophils % 2.0 % 12/31/20 16:23 Lymphocytes % (Manual) 6.0 % (13.4-35.0) L 12/31/20 16:23 Monocytes % (Manual) 1.0 % (0.0-7.3) 12/31/20 16:23 Nucleated RBC % Not Reportable 12/31/20 16:23 Seg Neutrophils # Man 16.4 K/mm3 (1.8-7.7) H 12/31/20 16:23 Band Neutrophils # 0.4 K/mm3 12/31/20 16:23 Lymphocytes # (Manual) 1.1 K/mm3 (1.2-5.4) L 12/31/20 16:23 Abs React Lymphs (Man) 0.0 K/mm3 12/31/20 16:23 Monocytes # (Manual) 0.2 K/mm3 (0.0-0.8) 12/31/20 16:23 Eosinophils # (Manual) 0.0 K/mm3 (0.0-0.4) 12/31/20 16:23 Basophils # (Manual) 0.0 K/mm3 (0.0-0.1) 12/31/20 16:23 Metamyelocytes # 0.0 K/mm3 12/31/20 16:23 Myelocytes # 0.0 K/mm3 12/31/20 16:23 Promyelocytes # 0.0 K/mm3 12/31/20 16:23 Blast Cells # 0.0 K/mm3 12/31/20 16:23 WBC Morphology Not Reportable 12/31/20 16:23 Hypersegmented Neuts Not Reportable 12/31/20 16:23 Hyposegmented Neuts Not Reportable 12/31/20 16:23 Hypogranular Neuts Not Reportable 12/31/20 16:23 Smudge Cells Not Reportable 12/31/20 16:23 Toxic Granulation Not Reportable 12/31/20 16:23 Toxic Vacuolation Not Reportable 12/31/20 16:23 Dohle Bodies Not Reportable 12/31/20 16:23 Pelger-Huet Anomaly Not Reportable 12/31/20 16:23 Mirian Rods Not Reportable 12/31/20 16:23 Platelet Estimate Consistent w auto 12/31/20 16:23 Clumped Platelets Not Reportable 12/31/20 16:23 Plt Clumps, EDTA Not Reportable 12/31/20 16:23 Large Platelets Not Reportable 12/31/20 16:23 Giant Platelets Not Reportable 12/31/20 16:23 Platelet Satelliting Not Reportable 12/31/20 16:23 Plt Morphology Comment Not Reportable 12/31/20 16:23 RBC Morphology Not Reportable 12/31/20 16:23 Dimorphic RBCs Not Reportable 12/31/20 16:23 Polychromasia Not Reportable 12/31/20 16:23 Hypochromasia Not Reportable 12/31/20 16:23 Poikilocytosis Not Reportable 12/31/20 16:23 Anisocytosis 1+ 12/31/20 16:23 Microcytosis Not Reportable 12/31/20 16:23 Macrocytosis Not Reportable 12/31/20 16:23 Spherocytes Not Reportable 12/31/20 16:23 Pappenheimer Bodies Not Reportable 12/31/20 16:23 Sickle Cells Not Reportable 12/31/20 16:23 Target Cells Not Reportable 12/31/20 16:23 Tear Drop Cells Not Reportable 12/31/20 16:23 Ovalocytes Not Reportable 12/31/20 16:23 Helmet Cells Not Reportable 12/31/20 16:23 Mart-Lefors Bodies Not Reportable 12/31/20 16:23 Antigo Rings Not Reportable 12/31/20 16:23 Lincroft Cells Not Reportable 12/31/20 16:23 Bite Cells Not Reportable 12/31/20 16:23 Crenated Cell Not Reportable 12/31/20 16:23 Elliptocytes Not Reportable 12/31/20 16:23 Acanthocytes (Spur) Not Reportable 12/31/20 16:23 Rouleaux Not Reportable 12/31/20 16:23 Hemoglobin C Crystals Not Reportable 12/31/20 16:23 Schistocytes Not Reportable 12/31/20 16:23 Malaria parasites Not Reportable 12/31/20 16:23 Dylon Bodies Not Reportable 12/31/20 16:23 Hem Pathologist Commnt No 12/31/20 16:23 APTT 49.4 Sec. (24.2-36.6) H 12/20/20 13:58 ABG pH 7.383 (7.320-7.450) 01/06/21 04:00 POC ABG pCO2 40.0 mmHg (32.0-48.0) 01/06/21 04:00 ABG pCO2 37.9 mm Hg 01/05/21 03:50 POC ABG pO2 230.5 mmHg (83-108) H 01/06/21 04:00 ABG pO2 136.8 mm Hg (80.0-90.0) H 01/05/21 03:50 POC ABG HCO3 23.3 01/06/21 04:00 ABG HCO3 22.4 mmol/L (20.0-26.0) 01/05/21 03:50 ABG O2 Saturation 99.6 (0-100) 01/06/21 04:00 ABG O2 Content 9.8 (0.0-44) 01/05/21 03:50 POC ABG Base Excess -1.6 01/06/21 04:00 ABG Base Excess -2.3 mmol/L (-2.0-3.0) L 01/05/21 03:50 ABG Hemoglobin 7.9 (12.0-17.5) L 01/06/21 04:00 ABG Oxyhemoglobin 98.5 (94-98) H 01/06/21 04:00 ABG Carboxyhemoglobin 1.5 % (0.0-5.0) 01/05/21 03:50 ABG Methemoglobin 0.3 (0.0-1.5) 01/06/21 04:00 ABG Sodium 129.4 mmol/L (136.0-145.0) L 01/06/21 04:00 ABG Potassium 3.6 mmol/L (3.40-4.50) 01/06/21 04:00 ABG Chloride 97.0 mmol/L (98-107) L 01/06/21 04:00 ABG Glucose 117 mg/dL (65-95) H 01/06/21 04:00 Oxyhemoglobin 96.7 % (95.0-99.0) 01/05/21 03:50 Carboxyhemoglobin 0.8 (0.5-1.5) 01/06/21 04:00 FiO2 50 % 01/05/21 03:50 FiO2 % 85.0 01/06/21 04:00 Sodium 133 mmol/L (137-145) L 01/06/21 04:20 Potassium 3.7 mmol/L (3.6-5.0) 01/06/21 04:20 Chloride 94.4 mmol/L (98-107) L 01/06/21 04:20 Carbon Dioxide 26 mmol/L (22-30) 01/06/21 04:20 Anion Gap 16 mmol/L 01/06/21 04:20 BUN 62 mg/dL (9-20) H 01/06/21 04:20 Creatinine 3.6 mg/dL (0.8-1.3) H 01/06/21 04:20 Estimated GFR 17 ml/min 01/06/21 04:20 BUN/Creatinine Ratio 17 % 01/06/21 04:20 Glucose 110 mg/dL (75-100) H 01/06/21 04:20 POC Glucose 113 mg/dL (70-105) H 01/06/21 11:32 Lactic Acid 1.70 mmol/L (0.7-2.0) 12/20/20 16:20 Calcium 7.8 mg/dL (8.4-10.2) L 01/06/21 04:20 Ionized Calcium 3.3 mg/dL (4.8-5.6) L 12/27/20 14:40 Phosphorus 3.90 mg/dL (2.5-4.5) D 01/06/21 04:20 Magnesium 1.90 mg/dL (1.7-2.3) 01/06/21 04:20 Total Bilirubin 0.50 mg/dL (0.1-1.2) 01/02/21 08:00 AST 47 units/L (5-40) H 01/02/21 08:00 ALT 26 units/L (7-56) 01/02/21 08:00 Alkaline Phosphatase 80 units/L (35-129) 01/02/21 08:00 Troponin T < 0.010 ng/mL (0.00-0.029) 12/20/20 13:58 Total Protein 5.0 g/dL (6.3-8.2) L 01/02/21 08:00 Albumin 1.6 g/dL (3.9-5) L 01/02/21 08:00 Albumin/Globulin Ratio 0.5 % 01/02/21 08:00 Triglycerides 144 mg/dL (2-149) 01/03/21 07:56 Arterial Blood Glucose 117 mg/dL (65-95) H 01/06/21 04:00 Arterial Blood Ionized Calcium 4.5 mg/dL (4.6-5.3) L 01/06/21 04:00 Urine Color Yellow (Yellow) 12/23/20 12:15 Urine Turbidity Cloudy (Clear) 12/23/20 12:15 Urine pH 5.0 (5.0-7.0) 12/23/20 12:15 Ur Specific [place] 1.019 (1.003-1.030) 12/23/20 12:15 Urine Protein <15 mg/dl mg/dL (Negative) 12/23/20 12:15 Urine Glucose (UA) Neg mg/dL (Negative) 12/23/20 12:15 Urine Ketones Neg mg/dL (Negative) 12/23/20 12:15 Urine Blood Sm (Negative) 12/23/20 12:15 Urine Nitrite Neg (Negative) 12/23/20 12:15 Urine Bilirubin Neg (Negative) 12/23/20 12:15 Urine Urobilinogen < 2.0 mg/dL (<2.0) 12/23/20 12:15 Ur Leukocyte Esterase Neg (Negative) 12/23/20 12:15 Urine WBC (Auto) 5.0 /HPF (0.0-6.0) 12/23/20 12:15 Urine RBC (Auto) 2.0 /HPF (0.0-6.0) 12/23/20 12:15 U Epithel Cells (Auto) < 1.0 /HPF (0-13.0) 12/20/20 Unknown Urine Bacteria (Auto) 1+ /HPF (Negative) 12/23/20 12:15 Triple Phos Crystals 2+ 12/23/20 12:15 Hyaline Casts 19 /LPF 12/20/20 Unknown Urine Mucus Few /HPF 12/23/20 12:15 Urine Eosinophils None seen (None Seen) 12/23/20 12:15 Urine Creatinine 78.1 mg/dL (0.1-20.0) H 12/23/20 12:15 Urine Sodium 13 mmol/L 12/23/20 12:15 Fraction Sodium Excret 0.2 12/23/20 12:15 Random Vancomycin 7.9 ug/mL (0-40.0) 12/23/20 12:15 Coronavirus (PCR) Negative (Negative) 12/21/20 Unknown Hepatitis A IgM Ab Non-reactive (NonReactive) 12/30/20 14:40 Hep Bs Antigen Non-reactive (Negative) 12/30/20 14:40 Hep B Core IgM Ab Non-reactive (NonReactive) 12/30/20 14:40 Hepatitis C Antibody Non-reactive (NonReactive) 12/30/20 14:40 Blood Type A NEGATIVE 01/06/21 11:00 Antibody Screen Negative 01/06/21 11:00 Crossmatch See Detail 01/03/21 11:00 Lawrence/IV: Voiding Method Indwelling Catheter Active Medications - Current Medications Current Medications: Generic Name Dose Route Start Last Admin Trade Name Freq PRN Reason Stop Dose Admin Acetaminophen 650 mg 12/21/20 11:51 12/25/20 20:35 Acetaminophen 650 Mg Rect Supp RI 650 mg Q4H PRN Administration TEMP >/=100.4 Bisacodyl 10 mg 12/30/20 11:00 01/06/21 09:11 Bisacodyl 10 Mg Rect Supp RI 10 mg QDAY ASCENCION Administration Dextrose 50 ml 12/24/20 10:49 Dextrose 50% In Water (25gm) 50 Ml Syringe IV Q30MIN PRN Hypoglycemia Protocol Famotidine 20 mg 12/26/20 10:00 01/06/21 09:10 Famotidine 20 Mg/2 Ml Inj IV 20 mg DAILY ASCENCION Administration Heparin Sodium (Porcine) 5,000 unit 01/06/21 14:00 01/06/21 13:52 Heparin 5,000 Unit/1 Ml Vial SUB-Q 5,000 unit Q8HR ASCENCION Administration Hydromorphone HCl 1 mg 01/06/21 15:58 Hydromorphone 1 Mg/1 Ml Inj IV Q4H PRN Pain , Severe (7-10) Hydrophilic Ointment 1 applic 12/20/20 21:58 Lip Therapy Vaseline TP Q2HR PRN Dry Lips Fentanyl Citrate 2,000 mcg in 100 mls @ 6.01 mls/hr 12/20/20 22:00 01/06/21 13:51 Fentanyl Drip Premix IV 4 mcg/kg/hr TITR ASCENCION 24.04 mls/hr Administration Protocol 1 MCG/KG/HR Propofol 1,000 mg in 100 mls @ 3.606 mls/hr 12/20/20 22:00 01/06/21 10:00 Diprivan 10 Mg/Ml IV 20 mcg/kg/min TITR ASCENCION 14.424 mls/hr Administration Protocol 5 MCG/KG/MIN NORepinephrine/NS 8 MG-250 ML 8 mg in 250 mls @ 3.75 mls/hr 12/21/20 09:00 01/02/21 06:15 Norepinephrine/Ns 8 Mg-250 Ml (Double Conc) IV 0 mcg/min TITRATE ASCENCION 0 mls/hr Titration Protocol 2 MCG/MIN Vasopressin 20 unit/ Sodium 101 mls @ 9.09 mls/hr 12/24/20 09:00 01/02/21 09:49 Chloride IV 0 units/min TITR ASCENCION 0 mls/hr Titration Protocol 0.03 UNITS/MIN Piperacillin Sod/Tazobactam Sod 4.5 gm in 100 mls @ 200 mls/hr 12/26/20 18:00 01/06/21 06:38 Zosyn/Ns 4.5gm/100ml IV 01/06/21 23:59 200 mls/hr Q12H ASCENCION Administration Protocol Fluconazole 200 mg in 100 mls @ 100 mls/hr 12/26/20 10:00 01/06/21 09:10 Diflucan IV 01/06/21 23:59 100 mls/hr Q24H ASCENCION Administration Protocol Sodium Chloride 100 mls @ 999 mls/hr 01/03/21 10:21 Nacl 0.9% IV MARILU PRN Hypotension Dexmedetomidine HCl 400 mcg/ 104 mls @ 7.322 mls/hr 01/04/21 11:00 01/06/21 15:14 Sodium Chloride IV 0.4 mcg/kg/hr TITRATE ASCENCION 14.643 mls/hr Administration Protocol 0.2 MCG/KG/HR Amino Acids/Electrolytes/Dextrose 2,400 mls @ 100 mls/hr 01/05/21 20:00 01/05/21 21:56 Tpn Adult IV 01/06/21 19:59 100 mls/hr DAILY@2000 ASCENCION Administration Protocol Amino Acids/Electrolytes/Dextrose 2,400 mls @ 100 mls/hr 01/06/21 20:00 Tpn Adult IV 01/07/21 19:59 DAILY@1999 [facility] Protocol Fat Emulsion Intravenous 250 mls @ 21 mls/hr 01/06/21 20:00 Intralipid 20% IV 01/07/21 08:00 DAILY@1999 [facility] Insulin Human Regular 0 units 12/28/20 00:00 01/06/21 12:19 Insulin Regular, Human 100 Units/1 Ml SUB-Q Not Given Q6H [facility] Protocol Multi-Ingred Cream/Lotion/Oil/Oint 1 applic 12/20/20 21:58 01/03/21 01:13 Mineral Oil/Petrolatum, White Ophth Oint 3.5 Gm OU 1 applic Q4HR PRN Administration Dry Eye(s) Sodium Chloride 10 ml 12/20/20 22:00 01/06/21 09:11 Sodium Chloride 0.9% 10 Ml Flush Syringe IV 10 ml BID ASCENCION Administration Sodium Chloride 10 ml 12/20/20 16:42 Sodium Chloride 0.9% 10 Ml Flush Syringe IV PRN PRN LINE FLUSH Nutrition/Malnutrition Assess - Dietary Evaluation Nutrition/Malnutrition Findings: Nutrition Notes Start: 12/21/20 09:06 Freq: Status: Active Protocol: Document 01/06/21 08:37 CW (Rec: 01/06/21 09:13 CW [id number]) Nutrition Notes Initial or Follow up Reassessment Current Diagnosis Acute Kidney Injury,Coronary Artery Disease,Sepsis, Hypertension,Small Bowel Obstruction,Hyperlipidemia Other Pertinent Diagnosis gangrenous small bowel, s/p small bowel ressection, peritonitis Current Diet TPN at 100ml/hr Labs/Tests Na 133 Cl 94.4 BUN 62 Cr 3.6 BG 110 Ca 7.8 Pertinent Medications propofol at 10.818 ml/hr Height 6 ft Weight 140.8 kg [place] Body Weight (kg) 80.90 BMI 42.0 Weight change and time frame 15% weight gain x 17d likely related to fluid Weight Status Morbidly Obese Subjective/Other Information Day 14 on CPN. Pt remains on mechanical vent. Propofol being titrated down, LFTs likely WNL. Will give lipids. [id number] Consult for TF. discussed with MD Tena. Plan is to start trickle feed of TF. TPN already ordered. Will titrate down TPN and/or initiate trickle feed tomorrow . Recommend Nepro Percent of energy/protein needs met: 89%/75% Burn Absent Trauma Absent GI Symptoms Other Current % PO Negligible Minimum of two criteria No Fluid Accumulation Mild (non-severe) #2 Nutrition Diagnosis Increased nutrient needs ( specify in comment below) Diagnosis Progress(for reassessment Continues documentation) #1 Nutrition Diagnosis Inadequate oral intake Diagnosis Progress(for reassessment Continues documentation) Is patient on ventilator? Yes Is Patient Ambulatory and/or Out of Bed No REE-([facility]-confined to bed) 2717.172 Kcal/Kg value to use for calculation 14 Approximate Energy Requirements Using 1971 kcal/Kg Calculation Used for Recommendations Kcal/kg Additional Notes Pro needs >1.2g/kg adjBW: > 133g/day Fluid needs per MD. Nutrition Intervention Change Diet Order: Continue CPN Nutrition Support: Continue CPN at 100 ml/hr: MVI ,lipids, Cl 100 acetate 0 Kcal 2,260 Protein (gm) 100 Carbohydrates (gm) 400 Fat (gm) 50 Fluid (mL) 2,650 Fiber (gm) 0 Goal #1 Meet needs as best as possible via CPN Anticipated Discharge Needs: Unable to determine at this time Follow-Up By: 01/07/21 Additional Comments Labs in AM: BMP mG, Phos
[2021-01-06] MEDS: HEPARIN 5,000 UNIT/1 ML VIAL SUB-Q SCH ×2 (13:52→21:43)
--- NOTE | 2021-01-06 14:35 | Progress Note ---
Assessment and Plan Cultures: 12/20/2020 sputum culture: In process 12/20/2020 blood culture: No growth 12/20/2020 urine culture: Usual skin giorgio 12/20/2020 tracheal aspirate culture: Mucor A/P: 60-year-old male with obesity, hypertension, tobacco abuse, coronary artery disease, admitted to the hospital on 12/20/2020 with: #Septic shock: Secondary to intra-abdominal source, peritonitis. Patient with necrotic bowel secondary to incarcerated ventral hernia. Status post exploratory laparotomy, extensive adhesiolysis, small bowel resection and peritoneal lavage along with ABThera VAC placement on 12/20/2020, replacement 12/29/2020. Remains on 2x pressors. #JONI: Renally dose antibiotics. #Morbid obesity Recs: -continue renally dosed Zosyn. -continue Fluconazole 200 mg daily -Will continue antibiotics until 5 days post his final surgery -Believe Mucor in tracheal aspirate is a colonizer of the tube. Minimal immunosuppression with diabetes, otherwise none. Agree with avoidance of steroids. We will continue to follow. Dr. Triplett covering this weekend, Dr. Rizzo taking over Saturday Priscilla Marie MD [facility], [place], [facility] ([facility]) O: [phone] F: [phone] Subjective Date of service: 01/06/21 Principal diagnosis: SBO and necrosis of large part of small intestine Interval history: Afebrile, white count 15.2 which is improving. remains on the vent. Objective - Exam Narrative Exam: Physical Exam: Constitutional: sedated, intubated, on the vent Head, Ears, Nose: Normocephalic, atraumatic. External ears, nose normal Eyes: Conjunctivae/corneas clear. No icterus. No ptosis. Neck: intubated Oral: intubated Cardiovascular: S1, S2 + Respiratory: AE fair bilaterally and equal GI: Woundvac in place Musculoskeletal: No pedal edema, no cyanosis. Skin: No rash or abscess Hem/Lymphatic: No palpable cervical or supraclavicular nodes. No lymphangitis Psych: no agitation Neurological: sedated, intubated, on the vent, exam limited - Constitutional Vitals: Vital Signs Temp Pulse Resp BP Pulse Ox 98.5 F 86 12 106/59 99 01/06/21 08:00 01/06/21 14:00 01/06/21 14:00 01/06/21 14:00 01/06/21 14:00 Temperature -Last 24 Hours Temperature 98.5 F Temperature 98.4 F Temperature 98.9 F Temperature 98.8 F Temperature 98.6 F Temperature 98.5 F - Labs CBC & Chem 7: 01/06/21 09:00 01/06/21 04:20 Labs: Abnormal lab results 01/03/21 01/05/21 01/05/21 Range/Units 11:00 11:02 15:37 WBC (4.5-11.0) K/mm3 RBC (3.65-5.03) M/mm3 Hgb (11.8-15.2) gm/dl Hct (35.5-45.6) % MCV (84-94) fl MCHC (32-34) % RDW (13.2-15.2) % POC ABG pO2 (83-108) mmHg ABG Hemoglobin (12.0-17.5) ABG Oxyhemoglobin (94-98) ABG Sodium (136.0-145.0) mmol/L ABG Chloride (98-107) mmol/L ABG Glucose (65-95) mg/dL Sodium (137-145) mmol/L Chloride (98-107) mmol/L BUN (9-20) mg/dL Creatinine (0.8-1.3) mg/dL Glucose (75-100) mg/dL POC Glucose 118 H 111 H (70-105) mg/dL Calcium (8.4-10.2) mg/dL Arterial Blood Glucose (65-95) mg/dL Arterial Blood Ionized Calcium (4.6-5.3) mg/dL Crossmatch See Detail 01/05/21 01/06/21 01/06/21 Range/Units 23:18 04:00 04:20 WBC (4.5-11.0) K/mm3 RBC (3.65-5.03) M/mm3 Hgb (11.8-15.2) gm/dl Hct (35.5-45.6) % MCV (84-94) fl MCHC (32-34) % RDW (13.2-15.2) % POC ABG pO2 230.5 H (83-108) mmHg ABG Hemoglobin 7.9 L (12.0-17.5) ABG Oxyhemoglobin 98.5 H (94-98) ABG Sodium 129.4 L (136.0-145.0) mmol/L ABG Chloride 97.0 L (98-107) mmol/L ABG Glucose 117 H (65-95) mg/dL Sodium 133 L (137-145) mmol/L Chloride 94.4 L (98-107) mmol/L BUN 62 H (9-20) mg/dL Creatinine 3.6 H (0.8-1.3) mg/dL Glucose 110 H (75-100) mg/dL POC Glucose 110 H (70-105) mg/dL Calcium 7.8 L (8.4-10.2) mg/dL Arterial Blood Glucose 117 H (65-95) mg/dL Arterial Blood Ionized Calcium 4.5 L (4.6-5.3) mg/dL Crossmatch 01/06/21 01/06/21 01/06/21 Range/Units 05:28 09:00 11:32 WBC 15.2 H (4.5-11.0) K/mm3 RBC 2.18 L (3.65-5.03) M/mm3 Hgb 6.5 L (11.8-15.2) gm/dl Hct 21.8 L (35.5-45.6) % MCV 100 H (84-94) fl MCHC 30 L (32-34) % RDW 18.5 H (13.2-15.2) % POC ABG pO2 (83-108) mmHg ABG Hemoglobin (12.0-17.5) ABG Oxyhemoglobin (94-98) ABG Sodium (136.0-145.0) mmol/L ABG Chloride (98-107) mmol/L ABG Glucose (65-95) mg/dL Sodium (137-145) mmol/L Chloride (98-107) mmol/L BUN (9-20) mg/dL Creatinine (0.8-1.3) mg/dL Glucose (75-100) mg/dL POC Glucose 109 H 113 H (70-105) mg/dL Calcium (8.4-10.2) mg/dL Arterial Blood Glucose (65-95) mg/dL Arterial Blood Ionized Calcium (4.6-5.3) mg/dL Crossmatch
--- NOTE | 2021-01-06 15:23 | Progress Note ---
Assessment and Plan POD#18 s/p ex lap and small bowel resection for necrotic bowel secondary to incarcerated ventral hernia left with open abdomen. POD#15 s/p abdominal exploration with segmental small bowel resection. abthera placement POD#12 s/p abdominal exploration, small bowel resection for ischemia, abthera placement POD#9 s/p abdominal exploration with small bowel anastamosis and abthera vac placement POD#5 s/p abdomen closure with mesh Afebrile and stable off pressors. Renal failure, continue dialysis per nephrology Respiratory insufficiency, wean to extubation per director of employer services continue NGT clamping. can start trickle tube feeds. Anemia likely due to illness and procedural losses. stable H/H. No signs of active bleeding Agree with transfusion due to dip in H/H. Prognosis is guarded. Subjective Date of service: 01/06/21 Narrative: No acute events overnight. Patient has had decreasing residuals and is NG tube. Been unable to wean patient off of ventilator due to agitation. Objective Vital Signs - 12hr 01/06/21 01/06/21 01/06/21 03:30 03:51 04:00 Temperature Pulse Rate 71 74 71 Pulse Rate [ 73 From Monitor] Respiratory Rate Blood Pressure 105/60 102/58 107/57 O2 Sat by Pulse 99 95 98 Oximetry 01/06/21 01/06/21 01/06/21 04:30 05:00 05:30 Temperature Pulse Rate 96 H 88 73 Pulse Rate [ From Monitor] Respiratory Rate Blood Pressure 97/57 142/79 100/60 O2 Sat by Pulse 100 89 89 Oximetry 01/06/21 01/06/21 01/06/21 06:00 06:30 07:00 Temperature Pulse Rate 70 98 H 94 H Pulse Rate [ From Monitor] Respiratory 19 Rate Blood Pressure 98/57 100/58 138/77 O2 Sat by Pulse 87 94 83 L Oximetry 01/06/21 01/06/21 01/06/21 07:30 07:31 07:36 Temperature 98.4 F Pulse Rate 77 87 Pulse Rate [ From Monitor] Respiratory 0 L Rate Blood Pressure 101/60 O2 Sat by Pulse 97 Oximetry 01/06/21 01/06/21 01/06/21 08:00 08:30 09:00 Temperature 98.5 F Pulse Rate 72 72 74 Pulse Rate [ 73 From Monitor] Respiratory 28 H 25 H 28 H Rate Blood Pressure 102/59 102/59 112/61 O2 Sat by Pulse 99 88 99 Oximetry 01/06/21 01/06/21 01/06/21 09:30 10:00 10:30 Temperature Pulse Rate 90 70 70 Pulse Rate [ From Monitor] Respiratory 17 28 H 28 H Rate Blood Pressure 118/73 107/53 95/56 O2 Sat by Pulse 95 99 90 Oximetry 01/06/21 01/06/21 01/06/21 11:00 11:03 11:30 Temperature Pulse Rate 70 70 70 Pulse Rate [ From Monitor] Respiratory 28 H 28 H Rate Blood Pressure 98/59 99/60 98/57 O2 Sat by Pulse 96 99 98 Oximetry 01/06/21 01/06/21 01/06/21 12:00 12:30 13:00 Temperature Pulse Rate 84 69 70 Pulse Rate [ 73 From Monitor] Respiratory 20 28 H 28 H Rate Blood Pressure 105/79 93/52 104/61 O2 Sat by Pulse 97 97 98 Oximetry 01/06/21 01/06/21 01/06/21 13:30 14:00 14:30 Temperature Pulse Rate 68 86 90 Pulse Rate [ From Monitor] Respiratory 28 H 12 21 Rate Blood Pressure 96/55 106/59 120/62 O2 Sat by Pulse 89 99 94 Oximetry - General physical appearance well developed, no distress, no pain - Respiratory normal expansion, normal respiratory effort - Abdomen soft, not tender, other (staple line c/d/i. LAURA drains serous. ) - Genitourinary other (massive stcrotal edema) - Labs 01/06/21 09:00 01/06/21 04:20 Diabetes panel 01/06/21 Range/Units 04:20 Sodium 133 L (137-145) mmol/L Potassium 3.7 (3.6-5.0) mmol/L Chloride 94.4 L (98-107) mmol/L Carbon Dioxide 26 (22-30) mmol/L BUN 62 H (9-20) mg/dL Creatinine 3.6 H (0.8-1.3) mg/dL Glucose 110 H (75-100) mg/dL Calcium 7.8 L (8.4-10.2) mg/dL Calcium panel 01/06/21 Range/Units 04:20 Calcium 7.8 L (8.4-10.2) mg/dL Phosphorus 3.90 D (2.5-4.5) mg/dL Pituitary panel 01/06/21 Range/Units 04:20 Sodium 133 L (137-145) mmol/L Potassium 3.7 (3.6-5.0) mmol/L Chloride 94.4 L (98-107) mmol/L Carbon Dioxide 26 (22-30) mmol/L BUN 62 H (9-20) mg/dL Creatinine 3.6 H (0.8-1.3) mg/dL Glucose 110 H (75-100) mg/dL Calcium 7.8 L (8.4-10.2) mg/dL Adrenal panel 01/06/21 Range/Units 04:20 Sodium 133 L (137-145) mmol/L Potassium 3.7 (3.6-5.0) mmol/L Chloride 94.4 L (98-107) mmol/L Carbon Dioxide 26 (22-30) mmol/L BUN 62 H (9-20) mg/dL Creatinine 3.6 H (0.8-1.3) mg/dL Glucose 110 H (75-100) mg/dL Calcium 7.8 L (8.4-10.2) mg/dL
--- NOTE | 2021-01-06 18:56 | Progress Note ---
Assessment and Plan Impression * Acute kidney injury. * Incarcerated hernia with ischemic bowel. Status post bowel resection * Hypernatremia, now with hyponatremia * Sepsis * Respiratory failure, intubated * Hyperkalemia * Metabolic Acidosis, Gap * Hypoalbuminemia * Anemia Recommendations * Started HD 12/30 for worsening renal function, electrolyte abnormalities, and volume control * Continue HD TTS, next session tomorrow * Assess daily for needs of additional sessions * Hold IVF * Transfuse for hgb < 7 * TPN per nutrition/primary * Pressors prn to maintain MAP greater than 65 * Avoid nephrotoxins * Monitor fluid status and electrolytes * Strict I/O * Primary and consult notes reviewed Subjective Date of service: 01/06/21 Principal diagnosis: SBO and necrosis of large part of small intestine Interval history: Remains intubated. No active bleed. Objective - Exam Narrative Exam: General: Mild distress. Intubated HEENT: Oral mucosa moist Neck: Supple, no JVD Chest: Intubated, mechanical breath sounds Heart: RRR, S1 and S2, no pericardial rub Abdomen: Open abdomen Extremity: No peripheral cyanosis, edema Neurological: Unable to follow commands Dermatology: No skin rash Psych: Mild agitation Musculoskeletal: No joint effusion - Vital Signs Vital signs: Vital Signs - 12hr 01/06/21 01/06/21 01/06/21 07:00 07:30 07:31 Temperature 98.4 F Pulse Rate 94 H 77 Pulse Rate [ From Monitor] Respiratory 19 0 L Rate Blood Pressure 138/77 101/60 O2 Sat by Pulse 83 L 97 Oximetry 01/06/21 01/06/21 01/06/21 07:36 08:00 08:30 Temperature 98.5 F Pulse Rate 87 72 72 Pulse Rate [ 73 From Monitor] Respiratory 28 H 25 H Rate Blood Pressure 102/59 102/59 O2 Sat by Pulse 99 88 Oximetry 01/06/21 01/06/21 01/06/21 09:00 09:30 10:00 Temperature Pulse Rate 74 90 70 Pulse Rate [ From Monitor] Respiratory 28 H 17 28 H Rate Blood Pressure 112/61 118/73 107/53 O2 Sat by Pulse 99 95 99 Oximetry 01/06/21 01/06/21 01/06/21 10:30 11:00 11:03 Temperature Pulse Rate 70 70 70 Pulse Rate [ From Monitor] Respiratory 28 H 28 H Rate Blood Pressure 95/56 98/59 99/60 O2 Sat by Pulse 90 96 99 Oximetry 01/06/21 01/06/21 01/06/21 11:30 12:00 12:30 Temperature Pulse Rate 70 84 69 Pulse Rate [ 73 From Monitor] Respiratory 28 H 20 28 H Rate Blood Pressure 98/57 105/79 93/52 O2 Sat by Pulse 98 97 97 Oximetry 01/06/21 01/06/21 01/06/21 13:00 13:30 14:00 Temperature Pulse Rate 70 68 86 Pulse Rate [ From Monitor] Respiratory 28 H 28 H 12 Rate Blood Pressure 104/61 96/55 106/59 O2 Sat by Pulse 98 89 99 Oximetry 01/06/21 01/06/21 01/06/21 14:30 15:00 15:30 Temperature Pulse Rate 90 72 73 Pulse Rate [ From Monitor] Respiratory 21 28 H 28 H Rate Blood Pressure 120/62 107/66 98/59 O2 Sat by Pulse 94 99 99 Oximetry 01/06/21 01/06/21 01/06/21 16:00 16:01 16:31 Temperature Pulse Rate 92 H 75 96 H Pulse Rate [ 73 From Monitor] Respiratory 28 H 18 Rate Blood Pressure 109/55 89/50 161/87 O2 Sat by Pulse 97 91 Oximetry 01/06/21 01/06/21 01/06/21 17:01 17:30 17:32 Temperature 98.8 F Pulse Rate 94 H 76 Pulse Rate [ From Monitor] Respiratory 23 28 H Rate Blood Pressure 146/74 87/49 O2 Sat by Pulse 97 95 Oximetry 01/06/21 18:00 Temperature Pulse Rate 71 Pulse Rate [ From Monitor] Respiratory 28 H Rate Blood Pressure 87/51 O2 Sat by Pulse 95 Oximetry - Lab 01/06/21 09:00 01/06/21 04:20 Most recent lab results ABG pH 7.383 (7.320-7.450) 01/06/21 04:00 ABG pCO2 37.9 mm Hg 01/05/21 03:50 ABG pO2 136.8 mm Hg (80.0-90.0) H 01/05/21 03:50 ABG HCO3 22.4 mmol/L (20.0-26.0) 01/05/21 03:50 ABG O2 Saturation 99.6 (0-100) 01/06/21 04:00 Calcium 7.8 mg/dL (8.4-10.2) L 01/06/21 04:20 Phosphorus 3.90 mg/dL (2.5-4.5) D 01/06/21 04:20 Magnesium 1.90 mg/dL (1.7-2.3) 01/06/21 04:20 Urine Creatinine 78.1 mg/dL (0.1-20.0) H 12/23/20 12:15 Urine Sodium 13 mmol/L 12/23/20 12:15 Medications & Allergies - Medications Allergies/Adverse Reactions: Allergies Iodinated Contrast Media Adverse Reaction (Verified 09/04/18 14:20) Unknown Home Medications: Home Medications Medication Instructions Recorded Confirmed Last Taken Type Aspirin 81 mg PO DAILY #30 tab.chew 09/08/18 01/04/21 03/31/20 09:28 Rx AtorvaSTATin [Lipitor] 80 mg PO QHS tablet 05/08/19 01/04/21 03/28/20 Rx Albuterol Sulfate [Proventil Hfa] 13.4 gm IH Q6H #1 hfa.aer.ad 04/01/20 01/04/21 Unknown Rx Clopidogrel [Plavix] 75 mg PO DAILY #30 tablet 04/01/20 01/04/21 Unknown Rx Gabapentin 300 mg PO BID@0700,1800 30 Days 04/01/20 01/04/21 Unknown Rx capsule Gabapentin 600 mg PO QHS 30 Days capsule 04/01/20 01/04/21 Unknown Rx Metoprolol [Lopressor TAB] 25 mg PO BID #60 tablet 04/01/20 01/04/21 Unknown Rx Dawson-3/Dha/Epa/Fish Oil [Dawson 3 1 each PO BID #60 capsule 04/01/20 01/04/21 U nknown Rx 500 Softgel] Tiotropium [place] [Spiriva] 2 puff IH DAILY #30 cap.w.dev 04/01/20 01/04/21 Unknown Rx Ubidecarenone [Co Q-10] 10 mg PO BID #60 tab 04/01/20 01/04/21 03/29/20 Rx cilostazoL [Pletal] 50 mg PO BID 30 Days tablet 04/01/20 01/04/21 Unknown Rx oxyCODONE /ACETAMINOPHEN [Percocet 2 tab PO Q6H PRN tablet 04/01/20 01/04/21 Unknown Rx 5/325 mg] Phosphorus #1 [K-Phos Neutral] 250 mg PO QID 2 Days #8 tablet 09/14/20 01/04/21 Unknown Rx Active Medications: Generic Name Dose Route Start Last Admin Trade Name Freq PRN Reason Stop Dose Admin Acetaminophen 650 mg 12/21/20 11:51 12/25/20 20:35 Acetaminophen 650 Mg Rect Supp [place] 650 mg Q4H PRN Administration TEMP >/=100.4 Bisacodyl 10 mg 12/30/20 11:00 01/06/21 09:11 Bisacodyl 10 Mg Rect Supp [place] 10 mg QDAY ASCENCION Administration Dextrose 50 ml 12/24/20 10:49 Dextrose 50% In Water (25gm) 50 Ml Syringe IV Q30MIN PRN Hypoglycemia Protocol Famotidine 20 mg 12/26/20 10:00 01/06/21 09:10 Famotidine 20 Mg/2 Ml Inj IV 20 mg DAILY ASCENCION Administration Heparin Sodium (Porcine) 5,000 unit 01/06/21 14:00 01/06/21 13:52 Heparin 5,000 Unit/1 Ml Vial SUB-Q 5,000 unit Q8HR ASCENCION Administration Hydromorphone HCl 1 mg 01/06/21 15:58 Hydromorphone 1 Mg/1 Ml Inj IV Q4H PRN Pain , Severe (7-10) Hydrophilic Ointment 1 applic 12/20/20 21:58 Lip Therapy Vaseline TP Q2HR PRN Dry Lips Fentanyl Citrate 2,000 mcg in 100 mls @ 6.01 mls/hr 12/20/20 22:00 01/06/21 17:18 Fentanyl Drip Premix IV 4 mcg/kg/hr TITR ASCENCION 24.04 mls/hr Administration Protocol 1 MCG/KG/HR Propofol 1,000 mg in 100 mls @ 3.606 mls/hr 12/20/20 22:00 01/06/21 17:18 Diprivan 10 Mg/Ml IV 20 mcg/kg/min TITR ASCENCION 14.424 mls/hr Administration Protocol 5 MCG/KG/MIN NORepinephrine/NS 8 MG-250 ML 8 mg in 250 mls @ 3.75 mls/hr 12/21/20 09:00 01/02/21 06:15 Norepinephrine/Ns 8 Mg-250 Ml (Double Conc) IV 0 mcg/min TITRATE ASCENCION 0 mls/hr Titration Protocol 2 MCG/MIN Vasopressin 20 unit/ Sodium 101 mls @ 9.09 mls/hr 12/24/20 09:00 01/02/21 09:49 Chloride IV 0 units/min TITR ASCENCION 0 mls/hr Titration Protocol 0.03 UNITS/MIN Piperacillin Sod/Tazobactam Sod 4.5 gm in 100 mls @ 200 mls/hr 12/26/20 18:00 01/06/21 17:24 Zosyn/Ns 4.5gm/100ml IV 01/06/21 23:59 200 mls/hr Q12H ASCENCION Administration Protocol Fluconazole 200 mg in 100 mls @ 100 mls/hr 12/26/20 10:00 01/06/21 09:10 Diflucan IV 01/06/21 23:59 100 mls/hr Q24H ASCENCION Administration Protocol Sodium Chloride 100 mls @ 999 mls/hr 01/03/21 10:21 Nacl 0.9% IV MARILU PRN Hypotension Dexmedetomidine HCl 400 mcg/ 104 mls @ 7.322 mls/hr 01/04/21 11:00 01/06/21 15:14 Sodium Chloride IV 0.4 mcg/kg/hr TITRATE ASCENCION 14.643 mls/hr Administration Protocol 0.2 MCG/KG/HR Amino Acids/Electrolytes/Dextrose 2,400 mls @ 100 mls/hr 01/05/21 20:00 01/05/21 21:56 Tpn Adult IV 01/06/21 19:59 100 mls/hr DAILY@1999 [facility] Administration Protocol Amino Acids/Electrolytes/Dextrose 2,400 mls @ 100 mls/hr 01/06/21 20:00 Tpn Adult IV 01/07/21 19:59 DAILY@1999 [facility] Protocol Fat Emulsion Intravenous 250 mls @ 21 mls/hr 01/06/21 20:00 Intralipid 20% IV 01/07/21 08:00 DAILY@1999 [facility] Insulin Human Regular 0 units 12/28/20 00:00 01/06/21 17:14 Insulin Regular, Human 100 Units/1 Ml SUB-Q Not Given Q6H [facility] Protocol Multi-Ingred Cream/Lotion/Oil/Oint 1 applic 12/20/20 21:58 01/03/21 01:13 Mineral Oil/Petrolatum, White Ophth Oint 3.5 Gm OU 1 applic Q4HR PRN Administration Dry Eye(s) Sodium Chloride 10 ml 12/20/20 22:00 01/06/21 09:11 Sodium Chloride 0.9% 10 Ml Flush Syringe IV 10 ml BID ASCENCION Administration Sodium Chloride 10 ml 12/20/20 16:42 Sodium Chloride 0.9% 10 Ml Flush Syringe IV PRN PRN LINE FLUSH
--- NOTE | 2021-01-06 19:36 | Electrocardiograph Report ---
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
[2021-01-06] MEDS ORDERED: SODIUM CHLORIDE 0.9% 500 ML 500 ML ONE (19:47)
[2021-01-06] MEDS ORDERED: TOTAL PARENTERAL NUTRITION 2,400 ML IV SCH (20:00)
[2021-01-06] MEDS ORDERED: FAT EMULSIONS 20% 250 ML IV SCH (20:00)
[2021-01-07] MEDS: fentaNYL DRIP Premix 2,000 MCG/100 ML BAG IV SCH ×6 (03:32→23:36)
[2021-01-07 03:55] LABS: Hematocrit 20.1 % (35.5-45.6); Hemoglobin 6.7 gm/dl (11.8-15.2); Mean Corpuscular HGB Conc 33 % (32-34); Mean Corpuscular Volume 87 fl (84-94); Platelet Count 291 K/mm3 (140-440); Red Cell Distribution Width 16.6 % (13.2-15.2)
[2021-01-07 04:31] LABS: Calcium 8.5 mg/dL (8.4-10.2)
[2021-01-07] MEDS: INSULIN REGULAR, HUMAN 100 UNITS/1 ML SUB-Q SCH ×4 (05:20→23:33)
[2021-01-07] MEDS: HEPARIN 5,000 UNIT/1 ML VIAL SUB-Q SCH ×3 (05:45→21:12)
[2021-01-07] MEDS ORDERED: SODIUM CHLORIDE 0.9% 500 ML 500 ML IV NR (07:43)
[2021-01-07] MEDS ORDERED: SIMPLE SYRUP 15 ML FEEDTUBE PRN ×2 (08:44)
[2021-01-07] MEDS ORDERED: SODIUM BICARBONATE 325 MG TAB FEEDTUBE PRN (08:44)
[2021-01-07] MEDS ORDERED: LIPASE 10,500/PROTEASE 25,000/AMYLASE 43,750 (UNITS) DR CAP FEEDTUBE PRN (08:44)
--- NOTE | 2021-01-07 09:09 | Progress Note ---
Assessment and Plan 60 y/o male with abdominal catastrophe, s/p ex-lap with open abdomen, ventilated for pain control and support. 01/07/21: Transfuse again. Coags ordered, as well as heme occult. Continue current sedation. Follow up post transfusion H/H. Nothing out of NG to suggest bleeding. Nothing bright red from bottom. Guarded prognosis. made changes to vent. Will order repeat gas this afternoon. 01/06/21: Will transfuse today. Will speak with surgery about residuals to see if they want to try trickle feeds. Will stop PRN fent and change to Dilaudid given renal function, maybe be longer acting. Able to wean once more sedated. Most likely patient is going to need a trach for further weaning and termite treater placement. Will discuss with surgery, not ready for this right now. 01/05/21: HD per renal. Continue precedex to help with weaning off sedation. Tolerates PRN pushes of fentanyl. Will repeat ABG and CXR post HD and then attempt to wean FiO2 back down. Prognosis remains guarded. May end up with trach. Continue to try to wean. 01/04/21: HD per renal. Will try PRecedex therapy to see if we can wean off some sedation. Told RT ok to start weaning PEEP. spoke with surgery. Will clamp NG tube and check residuals, if low, will start tube feeding. Guarded prognosis. NO steroids for anything. 01/03/21: Really need volume off. Vasopressors ordered and can be used to help with volume removal as patient has anasarca. Not sure that we would be able to successfully extubate if volume is not removed. Not ready for SBT as he is still requiring a decent amount of support. Would like PEEP at 6 and FiO2 at 40-45% or lower. Will speak with renal about HD again today for volume removal with pressor support to help with this. Continue TPN until gut ready for use. Absolutely no steroids. Guarded prognosis. Patient may need PRBC's, this could be transfused with HD, may help with volume removal. 01/02/21: Now, will start to wean sedation. Continue to wean FiO2 but do not wean PEEP until FiO2 is down to about 40%. Spoke with renal who will dialyze patient today. electrolyte imbalances will be managed by them as well. Abx therapy per ID. Will continue to follow. Guarded prognosis. 12/30/20: No steroids given new anastomosis. Discussed with surgery. Continue sedation and pain control until abdomen is closed. Appears to have metabolic acidosis and some volume overload so feel he would benefit from HD today, will ask renal about this. Electrolyte imbalances should be managed by HD. Guarded to poor prognosis. 12/29/20: Continue all supportive measures. Maintain adequate sedation and pain control given open abdomen. HD per renal, catheter in place. Wean Pressors for MAPS >65. Prognosis still remains guarded to poor. 12/27/20: Agree with bicarb drip. Will go ahead and place vascath today. Will obtain consent and place, likely in groin. Back on pressors unfortunately but much lower doses. Got 3 doses of steroids on yesterday. May have helped. Will discuss with pharmacy and determine the risk benefit ration of continuing. Continue abx therapy as per ID. overall prognosis is very very guarded to poor. 12/26/20: Needs more hydration. Appreciate renal help but will bolus several liters today as I feel the patient is very volume deplete and with persistent fever we have insensible losses as well. Continue TPN. OR today. Wean pressors for MAPs greater than 65. Follow up triglyceride level. Some hypotension is likely related to amount of sedation required to maintain rass of -4. If third agent is needed, could use precedex, ativan etc..Guarded prognosis. 12/25/20: Down to 14 on Levo now. Fluid appears to have helped. Renal following so will defer further bolus types to them but would recommend more fluid. Continue sedation at current level. TPN for nutrition. Plans for return to OR on Saturday. Continue all supportive measures. 12/24/20: Adequate sedation to maintain RASS of -4. BP support as needed with pressors. Will give more fluid today. Renal function improving. Agree with D5W but Na will be corrected in TPN as well. TPN per nutrition. Supportive care. 1. Adequate sedation to RASS of -4 2 Support BP with meds as needed 3. Aggressive hydration 4. Follow up surgery recs. cct 31 minutes. Subjective Date of service: 01/07/21 Principal diagnosis: SBO and necrosis of large part of small intestine Interval history: No acute events. Down to 35%. PEEP at 8. Sat is 94%. Did not respond appropriately to blood transfusion on yesterday. No HD yesterday. Objective Vital Signs - 12hr 01/06/21 01/06/21 01/06/21 21:14 21:30 21:44 Temperature 98.6 F 98.6 F Pulse Rate 96 H 68 96 H Pulse Rate [ From Monitor] Respiratory 18 28 H 18 Rate Blood Pressure 119/79 92/56 92/56 O2 Sat by Pulse 96 97 98 Oximetry 01/06/21 01/06/21 01/06/21 22:01 22:14 22:21 Temperature 98.6 F 98.6 F Pulse Rate 94 H 96 H 98 H Pulse Rate [ From Monitor] Respiratory 16 16 18 Rate Blood Pressure 119/79 119/79 119/79 O2 Sat by Pulse 96 97 98 Oximetry 01/06/21 01/06/21 01/06/21 22:30 23:00 23:21 Temperature 98.7 F Pulse Rate 71 67 67 Pulse Rate [ From Monitor] Respiratory 22 28 H 28 H Rate Blood Pressure 93/59 88/54 92/57 O2 Sat by Pulse 100 100 100 Oximetry 01/06/21 01/06/21 01/06/21 23:23 23:30 23:45 Temperature Pulse Rate 70 84 67 Pulse Rate [ 73 From Monitor] Respiratory 16 Rate Blood Pressure 92/57 149/84 O2 Sat by Pulse 100 97 100 Oximetry 01/07/21 01/07/21 01/07/21 00:00 00:30 01:00 Temperature Pulse Rate 67 67 66 Pulse Rate [ From Monitor] Respiratory 28 H 28 H 28 H Rate Blood Pressure 91/56 89/57 92/54 O2 Sat by Pulse 100 99 Oximetry 01/07/21 01/07/21 01/07/21 01:30 02:00 02:30 Temperature Pulse Rate 65 66 69 Pulse Rate [ From Monitor] Respiratory 28 H 28 H 28 H Rate Blood Pressure 96/58 95/57 101/58 O2 Sat by Pulse 99 96 97 Oximetry 01/07/21 01/07/21 01/07/21 03:00 03:30 03:31 Temperature 98.7 F Pulse Rate 67 84 Pulse Rate [ From Monitor] Respiratory 28 H 10 L Rate Blood Pressure 102/61 98/57 O2 Sat by Pulse 97 99 Oximetry 01/07/21 01/07/21 01/07/21 04:01 04:02 04:30 Temperature Pulse Rate 94 H 92 H 92 H Pulse Rate [ From Monitor] Respiratory 23 20 Rate Blood Pressure 119/100 119/100 125/63 O2 Sat by Pulse 94 100 96 Oximetry 01/07/21 01/07/21 01/07/21 05:00 05:30 05:35 Temperature Pulse Rate 84 74 Pulse Rate [ From Monitor] Respiratory 14 9 L Rate Blood Pressure 103/58 85/50 O2 Sat by Pulse 97 97 100 Oximetry 01/07/21 01/07/21 01/07/21 05:40 06:00 06:30 Temperature Pulse Rate 69 69 66 Pulse Rate [ From Monitor] Respiratory 9 L 28 H Rate Blood Pressure 81/55 92/56 O2 Sat by Pulse 98 Oximetry 01/07/21 01/07/21 01/07/21 07:00 07:27 07:30 Temperature Pulse Rate 66 66 73 Pulse Rate [ From Monitor] Respiratory 28 H 12 Rate Blood Pressure 93/55 115/69 111/62 O2 Sat by Pulse 100 99 99 Oximetry 01/07/21 01/07/21 08:00 08:01 Temperature 98.4 F Pulse Rate 93 H Pulse Rate [ 74 From Monitor] Respiratory 31 H 32 H Rate Blood Pressure 140/84 O2 Sat by Pulse 99 98 Oximetry Constitutional: comatose (secondary to sedation.), other (critically ill on ventilator) Eyes: non-icteric ENT: oropharynx moist Neck: supple Effort: normal Ascultation: Bilateral: other (coarse BS bilaterally) Cardiovascular: other (tachy, RR; no mrg) Gastrointestinal: other (abdomen open) Integumentary: normal Extremities: no cyanosis, no edema, pink and warm Neurologic: other (sedated) CBC and BMP: 01/07/21 03:10 01/07/21 03:10 ABG, PT/INR, D-dimer: ABG ABG pH 7.272 (7.320-7.450) L 01/07/21 04:17 POC ABG pCO2 50.1 mmHg (32.0-48.0) H 01/07/21 04:17 ABG pCO2 37.9 mm Hg 01/05/21 03:50 POC ABG pO2 106.5 mmHg (83-108) 01/07/21 04:17 ABG pO2 136.8 mm Hg (80.0-90.0) H 01/05/21 03:50 POC ABG HCO3 22.6 01/07/21 04:17 ABG O2 Saturation 97.3 (0-100) 01/07/21 04:17 Abnormal lab findings: Abnormal Labs 12/20/20 12/20/20 12/20/20 13:58 13:58 13:58 WBC 41.1 H* RBC 5.59 H Hgb 16.2 H Hct 47.7 H MCV MCHC RDW 15.5 H Plt Count 486 H Seg Neuts % (Manual) Lymphocytes % (Manual) Seg Neutrophils # Man Lymphocytes # (Manual) Monocytes # (Manual) APTT ABG pH POC ABG pCO2 POC ABG pO2 ABG pO2 ABG Base Excess ABG Hemoglobin ABG Oxyhemoglobin ABG Sodium ABG Potassium ABG Chloride ABG Glucose Carboxyhemoglobin Sodium 130 L Potassium Chloride 80.7 L Carbon Dioxide BUN 37 H Creatinine Glucose 101 H POC Glucose Lactic Acid 3.20 H* Calcium Ionized Calcium Phosphorus Magnesium AST Alkaline Phosphatase 142 H Total Protein 6.2 L Albumin 2.2 L Triglycerides Arterial Blood Glucose Arterial Blood Ionized Calcium Urine Creatinine Crossmatch 12/20/20 12/20/20 12/20/20 13:58 20:35 21:30 WBC RBC Hgb Hct MCV MCHC RDW Plt Count Seg Neuts % (Manual) Lymphocytes % (Manual) Seg Neutrophils # Man Lymphocytes # (Manual) Monocytes # (Manual) APTT 49.4 H ABG pH 7.313 L POC ABG pCO2 POC ABG pO2 ABG pO2 104.4 H ABG Base Excess ABG Hemoglobin ABG Oxyhemoglobin ABG Sodium ABG Potassium ABG Chloride ABG Glucose Carboxyhemoglobin Sodium Potassium Chloride Carbon Dioxide BUN Creatinine Glucose POC Glucose 122 H Lactic Acid Calcium Ionized Calcium Phosphorus Magnesium AST Alkaline Phosphatase Total Protein Albumin Triglycerides Arterial Blood Glucose Arterial Blood Ionized Calcium Urine Creatinine Crossmatch 12/21/20 12/21/20 12/21/20 03:06 08:14 08:14 WBC 23.9 H RBC Hgb Hct MCV MCHC RDW 15.7 H Plt Count Seg Neuts % (Manual) 91.0 H Lymphocytes % (Manual) 3.0 L Seg Neutrophils # Man 21.7 H Lymphocytes # (Manual) 0.7 L Monocytes # (Manual) 1.4 H APTT ABG pH 7.464 H POC ABG pCO2 POC ABG pO2 202.9 H ABG pO2 ABG Base Excess ABG Hemoglobin ABG Oxyhemoglobin ABG Sodium 133.7 L ABG Potassium ABG Chloride ABG Glucose 122 H Carboxyhemoglobin Sodium Potassium Chloride Carbon Dioxide BUN 46 H Creatinine Glucose 103 H POC Glucose Lactic Acid Calcium 6.6 L D Ionized Calcium Phosphorus Magnesium AST Alkaline Phosphatase Total Protein 5.4 L Albumin 2.3 L Triglycerides Arterial Blood Glucose 122 H Arterial Blood Ionized Calcium 3.5 L Urine Creatinine Crossmatch 12/21/20 12/21/20 12/22/20 17:18 21:28 04:45 WBC 22.9 H RBC Hgb Hct MCV MCHC RDW 15.7 H Plt Count Seg Neuts % (Manual) Lymphocytes % (Manual) Seg Neutrophils # Man Lymphocytes # (Manual) Monocytes # (Manual) APTT ABG pH POC ABG pCO2 POC ABG pO2 ABG pO2 ABG Base Excess ABG Hemoglobin ABG Oxyhemoglobin ABG Sodium ABG Potassium ABG Chloride ABG Glucose Carboxyhemoglobin Sodium Potassium Chloride Carbon Dioxide BUN Creatinine Glucose POC Glucose 108 H Lactic Acid Calcium Ionized Calcium 4.1 L Phosphorus Magnesium AST Alkaline Phosphatase Total Protein Albumin Triglycerides Arterial Blood Glucose Arterial Blood Ionized Calcium Urine Creatinine Crossmatch 12/22/20 12/22/20 12/22/20 04:45 05:00 11:38 WBC RBC Hgb Hct MCV MCHC RDW Plt Count Seg Neuts % (Manual) Lymphocytes % (Manual) Seg Neutrophils # Man Lymphocytes # (Manual) Monocytes # (Manual) APTT ABG pH 7.462 H POC ABG pCO2 POC ABG pO2 ABG pO2 ABG Base Excess ABG Hemoglobin ABG Oxyhemoglobin ABG Sodium ABG Potassium ABG Chloride ABG Glucose 118 H Carboxyhemoglobin Sodium 146 H Potassium Chloride Carbon Dioxide BUN 45 H Creatinine Glucose 116 H POC Glucose 115 H Lactic Acid Calcium 6.9 L Ionized Calcium Phosphorus Magnesium AST Alkaline Phosphatase Total Protein Albumin Triglycerides Arterial Blood Glucose 118 H Arterial Blood Ionized Calcium 3.8 L Urine Creatinine Crossmatch 12/22/20 12/23/20 12/23/20 23:26 04:43 04:45 WBC 22.2 H RBC Hgb Hct MCV MCHC RDW 16.1 H Plt Count Seg Neuts % (Manual) Lymphocytes % (Manual) Seg Neutrophils # Man Lymphocytes # (Manual) Monocytes # (Manual) APTT ABG pH POC ABG pCO2 POC ABG pO2 ABG pO2 ABG Base Excess ABG Hemoglobin ABG Oxyhemoglobin ABG Sodium 147.4 H ABG Potassium ABG Chloride 112.0 H ABG Glucose 130 H Carboxyhemoglobin 0.4 L Sodium Potassium Chloride Carbon Dioxide BUN Creatinine Glucose POC Glucose 110 H Lactic Acid Calcium Ionized Calcium Phosphorus Magnesium AST Alkaline Phosphatase Total Protein Albumin Triglycerides Arterial Blood Glucose 130 H Arterial Blood Ionized Calcium 3.8 L Urine Creatinine Crossmatch 12/23/20 12/23/20 12/23/20 04:45 05:17 11:22 WBC RBC Hgb Hct MCV MCHC RDW Plt Count Seg Neuts % (Manual) Lymphocytes % (Manual) Seg Neutrophils # Man Lymphocytes # (Manual) Monocytes # (Manual) APTT ABG pH POC ABG pCO2 POC ABG pO2 ABG pO2 ABG Base Excess ABG Hemoglobin ABG Oxyhemoglobin ABG Sodium ABG Potassium ABG Chloride ABG Glucose Carboxyhemoglobin Sodium 154 H D Potassium Chloride 110.9 H Carbon Dioxide BUN 54 H Creatinine 1.8 H Glucose 115 H POC Glucose 116 H 130 H Lactic Acid Calcium 7.0 L Ionized Calcium Phosphorus Magnesium AST Alkaline Phosphatase Total Protein Albumin Triglycerides Arterial Blood Glucose Arterial Blood Ionized Calcium Urine Creatinine Crossmatch 12/23/20 12/23/20 12/23/20 12:15 12:15 23:15 WBC RBC Hgb Hct MCV MCHC RDW Plt Count Seg Neuts % (Manual) Lymphocytes % (Manual) Seg Neutrophils # Man Lymphocytes # (Manual) Monocytes # (Manual) APTT ABG pH POC ABG pCO2 POC ABG pO2 ABG pO2 ABG Base Excess ABG Hemoglobin ABG Oxyhemoglobin ABG Sodium ABG Potassium ABG Chloride ABG Glucose Carboxyhemoglobin Sodium 154 H Potassium Chloride Carbon Dioxide BUN Creatinine 1.5 H Glucose POC Glucose 132 H Lactic Acid Calcium Ionized Calcium Phosphorus Magnesium AST Alkaline Phosphatase Total Protein Albumin Triglycerides Arterial Blood Glucose Arterial Blood Ionized Calcium Urine Creatinine 78.1 H Crossmatch 12/24/20 12/24/20 12/24/20 04:19 04:30 04:30 WBC 18.3 H RBC Hgb Hct MCV MCHC RDW 16.5 H Plt Count Seg Neuts % (Manual) Lymphocytes % (Manual) Seg Neutrophils # Man Lymphocytes # (Manual) Monocytes # (Manual) APTT ABG pH POC ABG pCO2 POC ABG pO2 ABG pO2 ABG Base Excess ABG Hemoglobin ABG Oxyhemoglobin ABG Sodium 149.7 H ABG Potassium ABG Chloride 116.0 H ABG Glucose 180 H Carboxyhemoglobin Sodium 155 H Potassium Chloride 116.1 H Carbon Dioxide BUN 52 H Creatinine 1.5 H Glucose 175 H POC Glucose Lactic Acid Calcium 6.8 L Ionized Calcium Phosphorus Magnesium 3.00 H AST Alkaline Phosphatase Total Protein 5.7 L Albumin 1.8 L Triglycerides Arterial Blood Glucose 180 H Arterial Blood Ionized Calcium 3.7 L Urine Creatinine Crossmatch 12/24/20 12/24/20 12/24/20 05:24 11:21 18:05 WBC RBC Hgb Hct MCV MCHC RDW Plt Count Seg Neuts % (Manual) Lymphocytes % (Manual) Seg Neutrophils # Man Lymphocytes # (Manual) Monocytes # (Manual) APTT ABG pH POC ABG pCO2 POC ABG pO2 ABG pO2 ABG Base Excess ABG Hemoglobin ABG Oxyhemoglobin ABG Sodium ABG Potassium ABG Chloride ABG Glucose Carboxyhemoglobin Sodium Potassium Chloride Carbon Dioxide BUN Creatinine Glucose POC Glucose 153 H 154 H 133 H Lactic Acid Calcium Ionized Calcium Phosphorus Magnesium AST Alkaline Phosphatase Total Protein Albumin Triglycerides Arterial Blood Glucose Arterial Blood Ionized Calcium Urine Creatinine Crossmatch 12/25/20 12/25/20 12/25/20 04:00 07:00 07:00 WBC 17.6 H RBC Hgb Hct MCV MCHC 31 L RDW 16.0 H Plt Count Seg Neuts % (Manual) Lymphocytes % (Manual) Seg Neutrophils # Man Lymphocytes # (Manual) Monocytes # (Manual) APTT ABG pH POC ABG pCO2 POC ABG pO2 ABG pO2 ABG Base Excess ABG Hemoglobin ABG Oxyhemoglobin ABG Sodium 152.5 H ABG Potassium ABG Chloride 119.0 H ABG Glucose 136 H Carboxyhemoglobin Sodium Potassium Chloride Carbon Dioxide BUN Creatinine Glucose POC Glucose Lactic Acid Calcium Ionized Calcium Phosphorus Magnesium 2.70 H AST Alkaline Phosphatase Total Protein Albumin Triglycerides Arterial Blood Glucose 136 H Arterial Blood Ionized Calcium 3.7 L Urine Creatinine Crossmatch 12/25/20 12/25/20 12/25/20 07:00 11:24 16:32 WBC RBC Hgb Hct MCV MCHC RDW Plt Count Seg Neuts % (Manual) Lymphocytes % (Manual) Seg Neutrophils # Man Lymphocytes # (Manual) Monocytes # (Manual) APTT ABG pH POC ABG pCO2 POC ABG pO2 ABG pO2 ABG Base Excess ABG Hemoglobin ABG Oxyhemoglobin ABG Sodium ABG Potassium ABG Chloride ABG Glucose Carboxyhemoglobin Sodium 156 H Potassium Chloride 118.0 H Carbon Dioxide BUN 44 H Creatinine 1.7 H Glucose 126 H POC Glucose 110 H 126 H Lactic Acid Calcium 6.9 L Ionized Calcium Phosphorus Magnesium AST Alkaline Phosphatase Total Protein Albumin Triglycerides Arterial Blood Glucose Arterial Blood Ionized Calcium Urine Creatinine Crossmatch 12/25/20 12/25/20 12/26/20 18:18 23:23 03:30 WBC RBC Hgb Hct MCV MCHC RDW Plt Count Seg Neuts % (Manual) Lymphocytes % (Manual) Seg Neutrophils # Man Lymphocytes # (Manual) Monocytes # (Manual) APTT ABG pH POC ABG pCO2 POC ABG pO2 ABG pO2 ABG Base Excess ABG Hemoglobin 11.8 L ABG Oxyhemoglobin ABG Sodium ABG Potassium 4.7 H ABG Chloride 114.0 H ABG Glucose 132 H Carboxyhemoglobin Sodium 151 H Potassium Chloride 114.3 H Carbon Dioxide BUN 51 H Creatinine 2.6 H D Glucose 122 H POC Glucose 115 H Lactic Acid Calcium 6.4 L Ionized Calcium Phosphorus Magnesium AST Alkaline Phosphatase Total Protein Albumin Triglycerides Arterial Blood Glucose 132 H Arterial Blood Ionized Calcium 3.6 L Urine Creatinine Crossmatch 12/26/20 12/26/20 12/26/20 04:55 06:01 06:01 WBC 21.6 H RBC Hgb Hct MCV MCHC 31 L RDW 16.5 H Plt Count 136 L Seg Neuts % (Manual) Lymphocytes % (Manual) Seg Neutrophils # Man Lymphocytes # (Manual) Monocytes # (Manual) APTT ABG pH POC ABG pCO2 POC ABG pO2 ABG pO2 ABG Base Excess ABG Hemoglobin ABG Oxyhemoglobin ABG Sodium ABG Potassium ABG Chloride ABG Glucose Carboxyhemoglobin Sodium 173 H* D Potassium 6.1 H* D Chloride 137.0 H Carbon Dioxide BUN 73 H Creatinine 3.8 H Glucose 125 H POC Glucose 112 H Lactic Acid Calcium 6.2 L Ionized Calcium Phosphorus 5.70 H D Magnesium 2.90 H AST Alkaline Phosphatase Total Protein Albumin Triglycerides Arterial Blood Glucose Arterial Blood Ionized Calcium Urine Creatinine Crossmatch 12/26/20 12/26/20 12/26/20 08:33 11:19 22:00 WBC RBC Hgb Hct MCV MCHC RDW Plt Count Seg Neuts % (Manual) Lymphocytes % (Manual) Seg Neutrophils # Man Lymphocytes # (Manual) Monocytes # (Manual) APTT ABG pH POC ABG pCO2 POC ABG pO2 ABG pO2 ABG Base Excess ABG Hemoglobin ABG Oxyhemoglobin ABG Sodium ABG Potassium ABG Chloride ABG Glucose Carboxyhemoglobin Sodium 147 H D Potassium 5.8 H D Chloride 108.8 H Carbon Dioxide 21 L BUN 68 H 68 H Creatinine 3.8 H 4.1 H Glucose 144 H 154 H POC Glucose 144 H Lactic Acid Calcium 6.5 L 5.8 L* Ionized Calcium Phosphorus Magnesium AST 215 H Alkaline Phosphatase Total Protein 4.7 L Albumin 1.5 L Triglycerides Arterial Blood Glucose Arterial Blood Ionized Calcium Urine Creatinine Crossmatch 12/26/20 12/26/20 12/27/20 23:13 Unknown 00:25 WBC RBC Hgb 11.1 L Hct MCV MCHC RDW Plt Count Seg Neuts % (Manual) Lymphocytes % (Manual) Seg Neutrophils # Man Lymphocytes # (Manual) Monocytes # (Manual) APTT ABG pH POC ABG pCO2 POC ABG pO2 ABG pO2 ABG Base Excess ABG Hemoglobin ABG Oxyhemoglobin ABG Sodium ABG Potassium ABG Chloride ABG Glucose Carboxyhemoglobin Sodium Potassium Chloride Carbon Dioxide BUN Creatinine Glucose POC Glucose 163 H Lactic Acid Calcium Ionized Calcium Phosphorus 5.60 H Magnesium AST Alkaline Phosphatase Total Protein Albumin Triglycerides Arterial Blood Glucose Arterial Blood Ionized Calcium Urine Creatinine Crossmatch 12/27/20 12/27/20 12/27/20 02:57 04:15 04:15 WBC 28.5 H RBC Hgb 11.2 L Hct MCV MCHC 31 L RDW 16.5 H Plt Count 130 L Seg Neuts % (Manual) Lymphocytes % (Manual) Seg Neutrophils # Man Lymphocytes # (Manual) Monocytes # (Manual) APTT ABG pH 7.238 L POC ABG pCO2 POC ABG pO2 139.1 H ABG pO2 ABG Base Excess ABG Hemoglobin 11.2 L ABG Oxyhemoglobin ABG Sodium 133.8 L ABG Potassium 5.2 H ABG Chloride ABG Glucose 182 H Carboxyhemoglobin Sodium 136 L Potassium 6.0 H Chloride Carbon Dioxide 18 L BUN 68 H Creatinine 4.1 H Glucose 166 H POC Glucose Lactic Acid Calcium 6.2 L Ionized Calcium Phosphorus 7.30 H D Magnesium AST Alkaline Phosphatase Total Protein Albumin Triglycerides 164 H Arterial Blood Glucose 182 H Arterial Blood Ionized Calcium 3.4 L Urine Creatinine Crossmatch 12/27/20 12/27/20 12/27/20 04:50 10:51 11:17 WBC RBC Hgb Hct MCV MCHC RDW Plt Count Seg Neuts % (Manual) Lymphocytes % (Manual) Seg Neutrophils # Man Lymphocytes # (Manual) Monocytes # (Manual) APTT ABG pH POC ABG pCO2 POC ABG pO2 ABG pO2 ABG Base Excess ABG Hemoglobin ABG Oxyhemoglobin ABG Sodium ABG Potassium ABG Chloride ABG Glucose Carboxyhemoglobin Sodium Potassium Chloride Carbon Dioxide BUN Creatinine Glucose POC Glucose 140 H 113 H 154 H Lactic Acid Calcium Ionized Calcium Phosphorus Magnesium AST Alkaline Phosphatase Total Protein Albumin Triglycerides Arterial Blood Glucose Arterial Blood Ionized Calcium Urine Creatinine Crossmatch 12/27/20 12/27/20 12/27/20 12:40 14:40 23:17 WBC RBC Hgb Hct MCV MCHC RDW Plt Count Seg Neuts % (Manual) Lymphocytes % (Manual) Seg Neutrophils # Man Lymphocytes # (Manual) Monocytes # (Manual) APTT ABG pH POC ABG pCO2 POC ABG pO2 ABG pO2 ABG Base Excess ABG Hemoglobin ABG Oxyhemoglobin ABG Sodium ABG Potassium ABG Chloride ABG Glucose Carboxyhemoglobin Sodium 135 L Potassium Chloride Carbon Dioxide 21 L BUN 62 H Creatinine 3.8 H Glucose 132 H POC Glucose 130 H Lactic Acid Calcium 5.6 L* Ionized Calcium 3.3 L Phosphorus Magnesium AST Alkaline Phosphatase Total Protein Albumin Triglycerides Arterial Blood Glucose Arterial Blood Ionized Calcium Urine Creatinine Crossmatch 12/28/20 12/28/20 12/28/20 05:36 07:08 07:28 WBC 27.2 H RBC 3.50 L Hgb 9.6 L Hct 30.8 L MCV MCHC 31 L RDW 16.1 H Plt Count 111 L Seg Neuts % (Manual) 95.0 H Lymphocytes % (Manual) Seg Neutrophils # Man 25.8 H Lymphocytes # (Manual) 0.0 L Monocytes # (Manual) 1.1 H APTT ABG pH 7.200 L POC ABG pCO2 POC ABG pO2 67.2 L ABG pO2 ABG Base Excess ABG Hemoglobin 10.3 L ABG Oxyhemoglobin 89.6 L ABG Sodium 127.8 L ABG Potassium 5.1 H ABG Chloride ABG Glucose 132 H Carboxyhemoglobin 0.4 L Sodium Potassium Chloride Carbon Dioxide BUN Creatinine Glucose POC Glucose 128 H Lactic Acid Calcium Ionized Calcium Phosphorus Magnesium AST Alkaline Phosphatase Total Protein Albumin Triglycerides Arterial Blood Glucose 132 H Arterial Blood Ionized Calcium 3.5 L Urine Creatinine Crossmatch 12/28/20 12/28/20 12/28/20 07:28 11:37 13:25 WBC RBC Hgb Hct MCV MCHC RDW Plt Count Seg Neuts % (Manual) Lymphocytes % (Manual) Seg Neutrophils # Man Lymphocytes # (Manual) Monocytes # (Manual) APTT ABG pH POC ABG pCO2 POC ABG pO2 ABG pO2 ABG Base Excess ABG Hemoglobin ABG Oxyhemoglobin ABG Sodium ABG Potassium ABG Chloride ABG Glucose Carboxyhemoglobin Sodium 131 L 133 L Potassium 5.9 H 5.1 H Chloride 97.1 L Carbon Dioxide 15 L 21 L BUN 70 H 77 H Creatinine 4.0 H 4.4 H Glucose 118 H 140 H POC Glucose 135 H Lactic Acid Calcium 6.3 L 6.3 L Ionized Calcium Phosphorus 7.10 H Magnesium AST 144 H Alkaline Phosphatase Total Protein 4.8 L Albumin 1.3 L Triglycerides Arterial Blood Glucose Arterial Blood Ionized Calcium Urine Creatinine Crossmatch 12/28/20 12/28/20 12/29/20 16:38 23:28 03:08 WBC RBC Hgb Hct MCV MCHC RDW Plt Count Seg Neuts % (Manual) Lymphocytes % (Manual) Seg Neutrophils # Man Lymphocytes # (Manual) Monocytes # (Manual) APTT ABG pH 7.301 L POC ABG pCO2 POC ABG pO2 151.1 H ABG pO2 ABG Base Excess ABG Hemoglobin 8.7 L ABG Oxyhemoglobin 98.2 H ABG Sodium 123.4 L ABG Potassium ABG Chloride 97.0 L ABG Glucose 144 H Carboxyhemoglobin Sodium Potassium Chloride Carbon Dioxide BUN Creatinine Glucose POC Glucose 140 H 134 H Lactic Acid Calcium Ionized Calcium Phosphorus Magnesium AST Alkaline Phosphatase Total Protein Albumin Triglycerides Arterial Blood Glucose 144 H Arterial Blood Ionized Calcium 3.4 L Urine Creatinine Crossmatch 12/29/20 12/29/20 12/29/20 05:20 05:20 06:01 WBC 21.0 H RBC 2.89 L Hgb 8.1 L Hct 25.5 L MCV MCHC RDW 16.1 H Plt Count 124 L Seg Neuts % (Manual) Lymphocytes % (Manual) Seg Neutrophils # Man Lymphocytes # (Manual) Monocytes # (Manual) APTT ABG pH POC ABG pCO2 POC ABG pO2 ABG pO2 ABG Base Excess ABG Hemoglobin ABG Oxyhemoglobin ABG Sodium ABG Potassium ABG Chloride ABG Glucose Carboxyhemoglobin Sodium 131 L Potassium Chloride 93.4 L Carbon Dioxide BUN 79 H Creatinine 4.7 H Glucose 122 H POC Glucose 108 H Lactic Acid Calcium 5.5 L* Ionized Calcium Phosphorus 5.70 H Magnesium 1.60 L AST Alkaline Phosphatase Total Protein Albumin Triglycerides Arterial Blood Glucose Arterial Blood Ionized Calcium Urine Creatinine Crossmatch 12/29/20 12/29/20 12/29/20 10:04 11:27 17:31 WBC RBC Hgb Hct MCV MCHC RDW Plt Count Seg Neuts % (Manual) Lymphocytes % (Manual) Seg Neutrophils # Man Lymphocytes # (Manual) Monocytes # (Manual) APTT ABG pH POC ABG pCO2 POC ABG pO2 ABG pO2 ABG Base Excess ABG Hemoglobin ABG Oxyhemoglobin ABG Sodium ABG Potassium ABG Chloride ABG Glucose Carboxyhemoglobin Sodium Potassium Chloride Carbon Dioxide BUN Creatinine Glucose POC Glucose 107 H 112 H 110 H Lactic Acid Calcium Ionized Calcium Phosphorus Magnesium AST Alkaline Phosphatase Total Protein Albumin Triglycerides Arterial Blood Glucose Arterial Blood Ionized Calcium Urine Creatinine Crossmatch 12/30/20 12/30/20 12/30/20 03:31 08:06 17:39 WBC RBC Hgb Hct MCV MCHC RDW Plt Count Seg Neuts % (Manual) Lymphocytes % (Manual) Seg Neutrophils # Man Lymphocytes # (Manual) Monocytes # (Manual) APTT ABG pH 7.261 L POC ABG pCO2 POC ABG pO2 123.1 H ABG pO2 ABG Base Excess ABG Hemoglobin 8.7 L ABG Oxyhemoglobin ABG Sodium 123.2 L ABG Potassium ABG Chloride 96.0 L ABG Glucose 112 H Carboxyhemoglobin Sodium 128 L Potassium Chloride 90.7 L Carbon Dioxide 21 L BUN 86 H Creatinine 4.9 H Glucose 107 H POC Glucose 134 H Lactic Acid Calcium 6.2 L Ionized Calcium Phosphorus 5.30 H Magnesium 1.50 L AST Alkaline Phosphatase Total Protein Albumin Triglycerides Arterial Blood Glucose 112 H Arterial Blood Ionized Calcium 3.2 L Urine Creatinine Crossmatch 12/30/20 12/31/20 12/31/20 22:45 02:14 04:40 WBC RBC Hgb Hct MCV MCHC RDW Plt Count Seg Neuts % (Manual) Lymphocytes % (Manual) Seg Neutrophils # Man Lymphocytes # (Manual) Monocytes # (Manual) APTT ABG pH 7.267 L POC ABG pCO2 POC ABG pO2 ABG pO2 ABG Base Excess ABG Hemoglobin 8.0 L ABG Oxyhemoglobin 93.7 L ABG Sodium ABG Potassium ABG Chloride 95.0 L ABG Glucose 108 H Carboxyhemoglobin 1.7 H Sodium 126 L Potassium Chloride 90.3 L Carbon Dioxide 20 L BUN 70 H Creatinine 4.3 H Glucose 209 H POC Glucose 109 H Lactic Acid Calcium 6.6 L Ionized Calcium Phosphorus 4.70 H Magnesium 1.60 L AST Alkaline Phosphatase Total Protein Albumin Triglycerides 157 H Arterial Blood Glucose 108 H Arterial Blood Ionized Calcium 3.7 L Urine Creatinine Crossmatch 12/31/20 12/31/20 01/01/21 16:23 23:21 04:00 WBC 18.0 H RBC 2.75 L Hgb 7.7 L Hct 23.9 L MCV MCHC RDW 15.6 H Plt Count Seg Neuts % (Manual) 91.0 H Lymphocytes % (Manual) 6.0 L Seg Neutrophils # Man 16.4 H Lymphocytes # (Manual) 1.1 L Monocytes # (Manual) APTT ABG pH 7.264 L POC ABG pCO2 POC ABG pO2 74.8 L ABG pO2 ABG Base Excess ABG Hemoglobin 7.1 L ABG Oxyhemoglobin 92.1 L ABG Sodium 124.9 L ABG Potassium ABG Chloride 95.0 L ABG Glucose 111 H Carboxyhemoglobin 1.7 H Sodium Potassium Chloride Carbon Dioxide BUN Creatinine Glucose POC Glucose 125 H Lactic Acid Calcium Ionized Calcium Phosphorus Magnesium AST Alkaline Phosphatase Total Protein Albumin Triglycerides Arterial Blood Glucose 111 H Arterial Blood Ionized Calcium 4.0 L Urine Creatinine Crossmatch 01/01/21 01/01/21 01/01/21 05:50 13:41 15:55 WBC RBC Hgb Hct MCV MCHC RDW Plt Count Seg Neuts % (Manual) Lymphocytes % (Manual) Seg Neutrophils # Man Lymphocytes # (Manual) Monocytes # (Manual) APTT ABG pH 7.148 L 7.207 L POC ABG pCO2 53.1 H POC ABG pO2 57.3 L 138.4 H ABG pO2 ABG Base Excess ABG Hemoglobin 9.0 L 8.3 L ABG Oxyhemoglobin 83.2 L ABG Sodium 126.2 L 124.5 L ABG Potassium ABG Chloride 95.0 L 95.0 L ABG Glucose 96 H 120 H Carboxyhemoglobin Sodium 131 L Potassium Chloride 93.3 L Carbon Dioxide 21 L BUN 67 H Creatinine 4.2 H Glucose POC Glucose Lactic Acid Calcium 7.1 L Ionized Calcium Phosphorus Magnesium AST 60 H Alkaline Phosphatase Total Protein 4.8 L Albumin 1.4 L Triglycerides Arterial Blood Glucose 96 H 120 H Arterial Blood Ionized Calcium 4.1 L 3.9 L Urine Creatinine Crossmatch 01/01/21 01/01/21 01/02/21 17:09 23:24 03:47 WBC RBC Hgb Hct MCV MCHC RDW Plt Count Seg Neuts % (Manual) Lymphocytes % (Manual) Seg Neutrophils # Man Lymphocytes # (Manual) Monocytes # (Manual) APTT ABG pH 7.276 L POC ABG pCO2 POC ABG pO2 173.6 H ABG pO2 ABG Base Excess ABG Hemoglobin 7 L ABG Oxyhemoglobin ABG Sodium 122.4 L ABG Potassium ABG Chloride 94.0 L ABG Glucose 118 H Carboxyhemoglobin Sodium Potassium Chloride Carbon Dioxide BUN Creatinine Glucose POC Glucose 124 H 119 H Lactic Acid Calcium Ionized Calcium Phosphorus Magnesium AST Alkaline Phosphatase Total Protein Albumin Triglycerides Arterial Blood Glucose 118 H Arterial Blood Ionized Calcium 4.0 L Urine Creatinine Crossmatch 01/02/21 01/02/21 01/02/21 05:33 08:00 08:00 WBC 19.7 H RBC 2.53 L Hgb 7.1 L Hct 22.0 L MCV MCHC RDW 16.4 H Plt Count Seg Neuts % (Manual) Lymphocytes % (Manual) Seg Neutrophils # Man Lymphocytes # (Manual) Monocytes # (Manual) APTT ABG pH POC ABG pCO2 POC ABG pO2 ABG pO2 ABG Base Excess ABG Hemoglobin ABG Oxyhemoglobin ABG Sodium ABG Potassium ABG Chloride ABG Glucose Carboxyhemoglobin Sodium 127 L Potassium Chloride 89.3 L Carbon Dioxide 19 L BUN 82 H Creatinine 5.0 H Glucose 103 H POC Glucose 107 H Lactic Acid Calcium 7.8 L Ionized Calcium Phosphorus 6.40 H Magnesium AST 47 H Alkaline Phosphatase Total Protein 5.0 L Albumin 1.6 L Triglycerides Arterial Blood Glucose Arterial Blood Ionized Calcium Urine Creatinine Crossmatch 01/02/21 01/03/21 01/03/21 17:25 07:56 09:47 WBC 17.7 H RBC 2.19 L Hgb 6.2 L Hct 18.5 L* MCV MCHC RDW 16.1 H Plt Count Seg Neuts % (Manual) Lymphocytes % (Manual) Seg Neutrophils # Man Lymphocytes # (Manual) Monocytes # (Manual) APTT ABG pH POC ABG pCO2 POC ABG pO2 ABG pO2 ABG Base Excess ABG Hemoglobin ABG Oxyhemoglobin ABG Sodium ABG Potassium ABG Chloride ABG Glucose Carboxyhemoglobin Sodium 130 L Potassium 3.5 L Chloride 90.3 L Carbon Dioxide BUN 68 H Creatinine 3.9 H Glucose 103 H POC Glucose 116 H Lactic Acid Calcium 8.0 L Ionized Calcium Phosphorus 4.80 H D Magnesium AST Alkaline Phosphatase Total Protein Albumin Triglycerides Arterial Blood Glucose Arterial Blood Ionized Calcium Urine Creatinine Crossmatch 01/03/21 01/03/21 01/04/21 11:00 19:00 03:12 WBC 17.0 H RBC 2.51 L Hgb 7.1 L Hct 21.5 L MCV MCHC RDW 16.6 H Plt Count Seg Neuts % (Manual) Lymphocytes % (Manual) Seg Neutrophils # Man Lymphocytes # (Manual) Monocytes # (Manual) APTT ABG pH 7.463 H POC ABG pCO2 POC ABG pO2 72.2 L ABG pO2 ABG Base Excess ABG Hemoglobin 6.2 L ABG Oxyhemoglobin 91.8 L ABG Sodium 128.4 L ABG Potassium 3.3 L ABG Chloride 96.0 L ABG Glucose 112 H Carboxyhemoglobin Sodium Potassium Chloride Carbon Dioxide BUN Creatinine Glucose POC Glucose Lactic Acid Calcium Ionized Calcium Phosphorus Magnesium AST Alkaline Phosphatase Total Protein Albumin Triglycerides Arterial Blood Glucose 112 H Arterial Blood Ionized Calcium 4.3 L Urine Creatinine Crossmatch See Detail 01/04/21 01/04/21 01/04/21 05:16 06:20 06:20 WBC 18.5 H RBC 2.53 L Hgb 7.4 L Hct 21.9 L MCV MCHC RDW 15.8 H Plt Count Seg Neuts % (Manual) Lymphocytes % (Manual) Seg Neutrophils # Man Lymphocytes # (Manual) Monocytes # (Manual) APTT ABG pH POC ABG pCO2 POC ABG pO2 ABG pO2 ABG Base Excess ABG Hemoglobin ABG Oxyhemoglobin ABG Sodium ABG Potassium ABG Chloride ABG Glucose Carboxyhemoglobin Sodium 135 L Potassium Chloride 95.2 L Carbon Dioxide BUN 56 H Creatinine 3.2 H Glucose 109 H POC Glucose 123 H Lactic Acid Calcium 7.6 L Ionized Calcium Phosphorus Magnesium AST Alkaline Phosphatase Total Protein Albumin Triglycerides Arterial Blood Glucose Arterial Blood Ionized Calcium Urine Creatinine Crossmatch 01/05/21 01/05/21 01/05/21 03:50 07:22 07:22 WBC 23.8 H RBC 2.93 L Hgb 8.2 L Hct 25.1 L MCV MCHC RDW 16.5 H Plt Count Seg Neuts % (Manual) Lymphocytes % (Manual) Seg Neutrophils # Man Lymphocytes # (Manual) Monocytes # (Manual) APTT ABG pH POC ABG pCO2 POC ABG pO2 ABG pO2 136.8 H ABG Base Excess -2.3 L ABG Hemoglobin 6.9 L ABG Oxyhemoglobin ABG Sodium ABG Potassium ABG Chloride ABG Glucose Carboxyhemoglobin Sodium 134 L Potassium Chloride 93.3 L Carbon Dioxide BUN 77 H Creatinine 4.2 H Glucose 105 H POC Glucose Lactic Acid Calcium Ionized Calcium Phosphorus 4.90 H D Magnesium AST Alkaline Phosphatase Total Protein Albumin Triglycerides Arterial Blood Glucose Arterial Blood Ionized Calcium Urine Creatinine Crossmatch 01/05/21 01/05/21 01/05/21 11:02 14:06 15:37 WBC RBC Hgb Hct MCV MCHC RDW Plt Count Seg Neuts % (Manual) Lymphocytes % (Manual) Seg Neutrophils # Man Lymphocytes # (Manual) Monocytes # (Manual) APTT ABG pH POC ABG pCO2 POC ABG pO2 332.3 H ABG pO2 ABG Base Excess ABG Hemoglobin 7.7 L ABG Oxyhemoglobin 98.7 H ABG Sodium 131.0 L ABG Potassium 3.3 L ABG Chloride 97.0 L ABG Glucose 118 H Carboxyhemoglobin Sodium Potassium Chloride Carbon Dioxide BUN Creatinine Glucose POC Glucose 118 H 111 H Lactic Acid Calcium Ionized Calcium Phosphorus Magnesium AST Alkaline Phosphatase Total Protein Albumin Triglycerides Arterial Blood Glucose 118 H Arterial Blood Ionized Calcium 4.4 L Urine Creatinine Crossmatch 01/05/21 01/06/21 01/06/21 23:18 04:00 04:20 WBC RBC Hgb Hct MCV MCHC RDW Plt Count Seg Neuts % (Manual) Lymphocytes % (Manual) Seg Neutrophils # Man Lymphocytes # (Manual) Monocytes # (Manual) APTT ABG pH POC ABG pCO2 POC ABG pO2 230.5 H ABG pO2 ABG Base Excess ABG Hemoglobin 7.9 L ABG Oxyhemoglobin 98.5 H ABG Sodium 129.4 L ABG Potassium ABG Chloride 97.0 L ABG Glucose 117 H Carboxyhemoglobin Sodium 133 L Potassium Chloride 94.4 L Carbon Dioxide BUN 62 H Creatinine 3.6 H Glucose 110 H POC Glucose 110 H Lactic Acid Calcium 7.8 L Ionized Calcium Phosphorus Magnesium AST Alkaline Phosphatase Total Protein Albumin Triglycerides Arterial Blood Glucose 117 H Arterial Blood Ionized Calcium 4.5 L Urine Creatinine Crossmatch 01/06/21 01/06/21 01/06/21 05:28 09:00 11:00 WBC 15.2 H RBC 2.18 L Hgb 6.5 L Hct 21.8 L MCV 100 H MCHC 30 L RDW 18.5 H Plt Count Seg Neuts % (Manual) Lymphocytes % (Manual) Seg Neutrophils # Man Lymphocytes # (Manual) Monocytes # (Manual) APTT ABG pH POC ABG pCO2 POC ABG pO2 ABG pO2 ABG Base Excess ABG Hemoglobin ABG Oxyhemoglobin ABG Sodium ABG Potassium ABG Chloride ABG Glucose Carboxyhemoglobin Sodium Potassium Chloride Carbon Dioxide BUN Creatinine Glucose POC Glucose 109 H Lactic Acid Calcium Ionized Calcium Phosphorus Magnesium AST Alkaline Phosphatase Total Protein Albumin Triglycerides Arterial Blood Glucose Arterial Blood Ionized Calcium Urine Creatinine Crossmatch See Detail 01/06/21 01/06/21 01/07/21 11:32 23:44 03:10 WBC 15.3 H RBC 2.30 L Hgb 6.7 L Hct 20.1 L MCV MCHC RDW 16.6 H Plt Count Seg Neuts % (Manual) Lymphocytes % (Manual) Seg Neutrophils # Man Lymphocytes # (Manual) Monocytes # (Manual) APTT ABG pH POC ABG pCO2 POC ABG pO2 ABG pO2 ABG Base Excess ABG Hemoglobin ABG Oxyhemoglobin ABG Sodium ABG Potassium ABG Chloride ABG Glucose Carboxyhemoglobin Sodium Potassium Chloride Carbon Dioxide BUN Creatinine Glucose POC Glucose 113 H 118 H Lactic Acid Calcium Ionized Calcium Phosphorus Magnesium AST Alkaline Phosphatase Total Protein Albumin Triglycerides Arterial Blood Glucose Arterial Blood Ionized Calcium Urine Creatinine Crossmatch 01/07/21 01/07/21 01/07/21 03:10 04:17 05:06 WBC RBC Hgb Hct MCV MCHC RDW Plt Count Seg Neuts % (Manual) Lymphocytes % (Manual) Seg Neutrophils # Man Lymphocytes # (Manual) Monocytes # (Manual) APTT ABG pH 7.272 L POC ABG pCO2 50.1 H POC ABG pO2 ABG pO2 ABG Base Excess ABG Hemoglobin 8.4 L ABG Oxyhemoglobin ABG Sodium 128.6 L ABG Potassium ABG Chloride 95.0 L ABG Glucose 109 H Carboxyhemoglobin Sodium 133 L Potassium Chloride 93.6 L Carbon Dioxide BUN 85 H Creatinine 3.9 H Glucose 112 H POC Glucose 106 H Lactic Acid Calcium Ionized Calcium Phosphorus 4.70 H D Magnesium AST Alkaline Phosphatase Total Protein Albumin Triglycerides Arterial Blood Glucose 109 H Arterial Blood Ionized Calcium Urine Creatinine Crossmatch
[2021-01-07] MEDS: FAMOTIDINE 20 MG/2 ML INJ IV SCH (09:37)
--- NOTE | 2021-01-07 10:50 | Progress Note ---
<LILIYAMARGE H. - Last Filed: 01/07/21 10:45> Assessment and Plan Assessment and plan: This is a 60-year-old male with obesity, hypertension, nicotine dependence, PVD s/p stent placement on dual antiplatelet therapy, hyperlipidemia, OA, GERD, ventral hernia and small bowel obstruction who was admitted with small bowel obstruction and peritonitis Septic Shock, POA (presented with leukocytosis, tachycardia, tachypnea,febrile and evidence of peritonitis) COVID-19 PUI, ruled out Small bowel obstruction with peritonitis Ventral hernia s/p repair Leukocytosis Anemia, likely Hyponatremia Hypochloremia Acute Kidney Injury, on HD now Obesity Hypertension Nicotine dependence CAD s/p stent placement Hyperlipidemia Osteoarthritis GERD -CCM, surgery, infectious disease, nephrology consulted, appreciate recommendations -12/20 CT abdomen/pelvis showed high-grade small bowel obstruction related to severe complex ventral abdominal wall hernias, progressed in appearance from prior exam from 09/12/2020 without evidence of pneumonitis or pneumoperitoneum, patchy bibasilar airspace disease concern for atypical infectious p rocess/pneumonitis -12/20 s/p ex lap, extensive lysis of adhesions, small bowel resection (removal of 70 cm necrotic small bowel segment), peritoneal lavage and ABThera abdominal wound VAC placement -12/23 s/p abdominal exploration, small bowel resection, peritoneal lavage, ABThera wound VAC placement -12/26 s/p ex lap, small bowel resection, peritoneal lavage, ABThera wound VAC placement -12/29 s/p ex lap, small bowel resection, small bowel anastomosis and ABThera wound VAC placement -01/01 s/p myocutaneous flap creation, abdominal wall component separation and placement of phasix mesh with surgery yesterday where his abdomen was closed and 2 LAURA drains were placed on either side of his midline between fascia and subcu tissue. -12/30 initiated on HD by nephro -IV abx per ID: Zosyn, fluconazole -NGT, clamping trials underway -NPO for now, TPN -SSI, Accucheck q6 -s/p Vasopressor support -HD per nephro -12/23 Fractional excretion of sodium calculated at 0.16 indicating prerenal state -COVID-19 PCR negative -On mechanical ventilation, wean as tolerated, VAP bundle -Propofol, fentanyl, IV push Dilaudid, Precedex -Transfuse for Hbg < 7 -Trend CBC, BMP, Mg, Phos GI/DVT prophylaxis: PPI, SCDs to bilateral lower extremities while in bed, heparin subcu Disposition: ICU Lines: PICC placed 01/05, Femoral trialysis The high probability of a clinically significant, sudden or life threatening deterioration of the [multi] system(s) required my full and direct attention, intervention and personal management. The aggregate critical care time was [35] minutes. This time is in addition to time spent performing reported procedures but includes the following: [x] Data Review and interpretation [x] Patient assessment and monitoring of vital signs [x] Documentation [x] Medication orders and management History Interval history: This is a 60-year-old male with obesity, hypertension, nicotine dependence, PVD s/p stent placement on dual antiplatelet therapy, hyperlipidemia, OA, GERD, ventral hernia with SBO who presents to the emergency department on 12/20 with severe, diffuse, worsened with movement, slightly relieved with rest abdominal pain rated at 10/10 with decreased oral intake, nausea and multiple episodes of vomiting. Patient underwent a CT of his abdomen/pelvis and was found to have evidence of small bowel obstruction as well as clinical findings consistent with acute peritonitis. Patient was admitted to the hospital service with acute peritonitis and incarcerated ventral hernia with consults to [facility] and surgery. 12/21: Patient is status post ex lap, extensive lysis of adhesions, small bowel resection, peritoneal lavage and ABThera abdominal wound VAC placement by Dr. Tena and Dr. Brumfield on 12/20 with removal of a 70 cm segment of necrotic small bowel. Patient was intubated and sedated on propofol / 4 at the time of my examination on Assist-control, rate of 24, PEEP of 6, tidal volume of 550 and FiO2 35%. Patient needed to be deeply sedated and there was a became hypotensive. Patient was started on patient for support with Levophed and received bolus of IVF. 12/22: Patient was febrile to 103 and vancomycin and Diflucan were added by [facility] and infectious disease was consulted and they increased Zosyn and stop va ncomycin. Patient was given additional 1 L bolus today for CVP goal of 10-12. At the time of examination patient was on Levophed, propofol and fentanyl CMV tidal volume 500, rate of 24, PEEP of 6 and FiO2 65%. Plan for OR tomorrow 12/23: Patient Cr/BUN noted to be increased and nephrology was consulted. ID decreased the zosyn dose d/r renal function. Urine studies ordered. [place] placed today. LR boluses per [facility], TPN to be started. Fractional excretion of sodium calculated at 0.16 indicating prerenal state 12/24: Patient is status post abdominal exploration, small bowel resection of 4 to 5 cm segment of dusky small bowel, peritoneal lavage and ABThera wound VAC placement on 12/23 with surgery, leukocytosis and renal function is improving, worsening hypernatremia and hyperchloremia. Patient will be started on TPN today. We will place on SSI/Accu-Cheks every every 6 hours. Patient noted to be nearly maxed on Levophed and vasopressin was ordered. Remains sedated and on MV 12/25: Leukocytosis continues to improve, given Ca Gluconate today, Hypernatremia, Cr and hyperchorlemia slightly worsened today. Patient is sedated with propofol and fentanyl on CMV TV 500, Rate 24, Peep 6, FiO2 50%. He remains on levophed. Possible OR Saturday. 12/26 Patient presented with small bowel obstruction, is status post ex lap, extensive lysis of adhesions, small bowel resection, peritoneal lavage and ABT tristian abdominal wound VAC placement by Dr. Tena and Dr. Brumfield on 12/20 with removal of a 70 cm segment of necrotic small bowel. Was taken back to OR on 12/23 s/p Abdominal exploration, Small bowel resection, Peritoneal lavage, ABThera wound VAC placement. he is still having fever. Poss going to OR again today. Sepsis managed by ID. He is on Diflucan, Zosyn. He is on Levophed. 6/ s/p ex lap, extensive lysis of adhesions, small bowel resection (removal of 70 cm necrotic small bowel segment), peritoneal lavage and ABThera abdominal wound VAC placement. Still having fever Still on vent 12/28: Patient is orally intubated with AC mode ventilation rate 24, tidal volume 500, FiO2 75% and PEEP of 6. POD#8 s/p ex lap and small bowel resection for necrotic bowel secondary to incarcerated ventral hernia left with open abdomen. POD#5 s/p abdominal exploration with segmental small bowel resection. abthera placement POD#2 s/p abdominal exploration, small bowel resection for ischemia, abthera placement -[facility], surgery, infectious disease, nephrology consulted, appreciate r ecommendations -IV abx per ID: Zosyn, fluconazole -NGT to LIWS -NPO for now, TPN -SSI, Accucheck q6 -Vasopressor support with levophed -On mechanical ventilation, wean as tolerated, VAP bundle -Sedated with propofol and analgesia with fentanyl drip -Trend CBC, BMP, Mg, Phos -GI/DVT prophylaxis: PPI, SCDs to bilateral lower extremities while in bed, avoid chemical anticoagulation to cleared by surgery 12/29: Patient underwent abdominal exploration, small bowel resection, small bowel anastomosis and ABThera wound VAC placement this a.m. Patient remains on AC mode ventilation with a rate of 24, tidal volume 500, FiO2 65% and PEEP of 6. Continue antibiotics per ID recommendations. Continue vasopressor support as needed. Continue TPN for nutritional support. 12/30: Patient currently with AC mode ventilation rate of 24, tidal volume 500, FiO2 60% and PEEP of 6. Patient underwent further surgery yesterday with another abdominal exploration, small bowel resection, small bowel anastomosis and replacement of the ABThera wound VAC. Patient continues to require vasopressor support with vasopressin and Levophed. Continue TPN for nutrition. Continue propofol and fentanyl for sedation. Continue Zosyn per ID recommendations 12: Patient currently with AC mode ventilation rate of 24, tidal volume 500, FiO2 50% and PEEP of 6. POD#12 s/p ex lap and small bowel resection for necrotic bowel secondary to incarcerated ventral hernia left with open abdomen. POD#9 s/p abdominal exploration with segmental small bowel resection. abthera placement POD#3 s/p abdominal exploration, small bowel resection for ischemia, abthera placement POD#2 s/p abdominal exploration with small bowel anastamosis and abthera vac placement Continue hemodialysis per nephrology recommendations. Surgery plans for abdominal washout and bowel examination on Saturday. If anastamosis looks viable and no other issues, surgery plans to close his abdomen. 01/01: Continue current ventilator settings per pulmonary monitor ABG. Continue antibiotics per ID recommendations. Surgery plans for abdominal washout and b owel examination. If anastamosis looks viable and no other issues, surgery plans to close his abdomen. Wean pressors to maintain MAP > 65. Continue TPN for nutritional support. Hemodialysis per nephrology recommendations. Prognosis remains guarded. 01/02: At the time my examination patient was only on vasopressin for vasopressor support, sedated on 30 mcg of propofol and 4 mcg of fentanyl. Patient was on CMV tidal volume 500, rate of 12, PEEP of 10 and 50% FiO2. Patient remains on TPN and with NG tube to low intermittent suction. Patient underwent a myocutaneous flap creation, abdominal wall component separation and placement of phasix mesh with surgery yesterday where his abdomen was closed and 2 LAURA drains were placed on either side of his midline between fascia and subcu tissue. Per infectious his antibiotics will continue until 5 days postop from a final surgery. Patient has increasing leukocytosis which are likely reactive to surgery and patient will have hemodialysis today for clearance and volume removal. Patient sedation and mechanical ventilation will be weaned for e xtubation. 01/03: Patient H/H is 6.2/18.5 and he is being transfused 2 units PRBC with hemodialysis today. Patient has slight hypokalemia but TPN has been adjusted to address potassium. Patient continues to have hyponatremia, hypochloremia and hyperphosphatemia closely improved. The time my examination patient sedated on fentanyl and propofol and LAURA drainage noted to be more serosanguineous. Patient was on assist control with TV 500, PEEP of 8, rate of 28 and FiO2 40%. Patient remains off vasopressor support. No acute overnight events reported 01/04: Patient sedated on propofol and fentanyl. RN reported bowel movement overnight. Precedex drip started. NG tube clamped and may start trickle tube feedings later if patient does not have high residuals. CCM continues to wean ventilation as tolerated. On my exam patient is on CMV tidal volume 500 rate of 28, PEEP of 8 and 40% FiO2. Patient is having periods of agitation and FiO2 had to be increased for hypoxia. Mucor species in tracheal aspirate but ID believes this is colonization. 01/05: Patient is severely agitated and received multiple IV push fentanyl. Patient was ultimately started on propofol. He received hemodialysis today. Patient had approximately 400 mL of NG output overnight. NG tube continues to be on suction. Leukocytosis worsened today. 01/06: Patient is agitated despite fentanyl pushes and Dilaudid was ordered, patient noted to be anemic with a hemoglobin of 6.5 and will be transfused 1 unit PRBC today. Nephrology does not plan to dialyze him today and to keep him on Saturday, , Saturday schedule. No acute events reported overnight. Patient NG tube residuals continue to decrease and surgery has cleared for trickle tube feeds which has been communicated to dietitian. 01/07: This this morning H/H resulted at 6.7/20.1 after 1 unit PRBC 6.7/21.8. Patient's ABG today shows respiratory acidosis and vent settings have been changed by CCM. Patient should receive hemodialysis today as he is on Saturday schedule. Overnight RN reported 700 mL of NG tube output over 12 hours. We will hold off on trickle feeds and continue TPN. At the time of my examination patient was sedated on propofol, fentanyl, Precedex and on CMV tidal volume 550, rate of 10, PEEP of 8 and 35% FiO2. We will order coags and stool guaiac to further investigate anemia. Hospitalist Physical - Constitutional Vitals: Temp Pulse Resp BP Pulse Ox 98.1 F 80 25 H 106/59 98 01/07/21 10:20 01/07/21 10:30 01/07/21 10:30 01/07/21 10:30 01/07/21 10:30 General appearance: Present: mild distress, well-nourished, obese, other (sedated) - EENT Eyes: Present: PERRL, EOM intact ENT: poor dentition - Neck Neck: Present: normal ROM - Respiratory Respiratory effort: normal Respiratory: bilateral: diminished - Cardiovascular Rhythm: regular Heart Sounds: Present: S1 & S2. Absent: systolic murmur, diastolic murmur - Extremities Extremities: no ischemia, pulses intact, pulses symmetrical, No edema, normal temperature, normal color Peripheral Pulses: within normal limits - Abdominal General gastrointestinal: soft, non-tender, non-distended, hypoactive bowel sounds, other (abd binder in place) - Integumentary Integumentary: Present: warm, dry - Neurologic Neurologic: moves all extremities (spontanously) - Allied Health Allied health notes reviewed: nursing, RT, social work HEART Score - HEART Score Troponin: Troponin T < 0.010 ng/mL (0.00-0.029) 12/20/20 13:58 Results - Labs CBC & Chem 7: 01/07/21 03:10 01/07/21 03:10 Labs: Laboratory Last Values WBC 15.3 K/mm3 (4.5-11.0) H 01/07/21 03:10 RBC 2.30 M/mm3 (3.65-5.03) L 01/07/21 03:10 Hgb 6.7 gm/dl (11.8-15.2) L 01/07/21 03:10 Hct 20.1 % (35.5-45.6) L 01/07/21 03:10 MCV 87 fl (84-94) 01/07/21 03:10 MCH 29 pg (28-32) 01/07/21 03:10 MCHC 33 % (32-34) 01/07/21 03:10 RDW 16.6 % (13.2-15.2) H 01/07/21 03:10 Plt Count 291 K/mm3 (140-440) 01/07/21 03:10 Add Manual Diff Complete 12/31/20 16:23 Total Counted 100 12/31/20 16:23 Seg Neutrophils % Aluminum Polisher 12/31/20 16:23 Seg Neuts % (Manual) 91.0 % (40.0-70.0) H 12/31/20 16:23 Band Neutrophils % 2.0 % 12/31/20 16:23 Lymphocytes % (Manual) 6.0 % (13.4-35.0) L 12/31/20 16:23 Monocytes % (Manual) 1.0 % (0.0-7.3) 12/31/20 16:23 Nucleated RBC % Not Reportable 12/31/20 16:23 Seg Neutrophils # Man 16.4 K/mm3 (1.8-7.7) H 12/31/20 16:23 Band Neutrophils # 0.4 K/mm3 12/31/20 16:23 Lymphocytes # (Manual) 1.1 K/mm3 (1.2-5.4) L 12/31/20 16:23 Abs React Lymphs (Man) 0.0 K/mm3 12/31/20 16:23 Monocytes # (Manual) 0.2 K/mm3 (0.0-0.8) 12/31/20 16:23 Eosinophils # (Manual) 0.0 K/mm3 (0.0-0.4) 12/31/20 16:23 Basophils # (Manual) 0.0 K/mm3 (0.0-0.1) 12/31/20 16:23 Metamyelocytes # 0.0 K/mm3 12/31/20 16:23 Myelocytes # 0.0 K/mm3 12/31/20 16:23 Promyelocytes # 0.0 K/mm3 12/31/20 16:23 Blast Cells # 0.0 K/mm3 12/31/20 16:23 WBC Morphology Not Reportable 12/31/20 16:23 Hypersegmented Neuts Not Reportable 12/31/20 16:23 Hyposegmented Neuts Not Reportable 12/31/20 16:23 Hypogranular Neuts Not Reportable 12/31/20 16:23 Smudge Cells Not Reportable 12/31/20 16:23 Toxic Granulation Not Reportable 12/31/20 16:23 Toxic Vacuolation Not Reportable 12/31/20 16:23 Dohle Bodies Not Reportable 12/31/20 16:23 Pelger-Huet Anomaly Not Reportable 12/31/20 16:23 Mirian Rods Not Reportable 12/31/20 16:23 Platelet Estimate Consistent w auto 12/31/20 16:23 Clumped Platelets Not Reportable 12/31/20 16:23 Plt Clumps, EDTA Not Reportable 12/31/20 16:23 Large Platelets Not Reportable 12/31/20 16:23 Giant Platelets Not Reportable 12/31/20 16:23 Platelet Satelliting Not Reportable 12/31/20 16:23 Plt Morphology Comment Not Reportable 12/31/20 16:23 RBC Morphology Not Reportable 12/31/20 16:23 Dimorphic RBCs Not Reportable 12/31/20 16:23 Polychromasia Not Reportable 12/31/20 16:23 Hypochromasia Not Reportable 12/31/20 16:23 Poikilocytosis Not Reportable 12/31/20 16:23 Anisocytosis 1+ 12/31/20 16:23 Microcytosis Not Reportable 12/31/20 16:23 Macrocytosis Not Reportable 12/31/20 16:23 Spherocytes Not Reportable 12/31/20 16:23 Pappenheimer Bodies Not Reportable 12/31/20 16:23 Sickle Cells Not Reportable 12/31/20 16:23 Target Cells Not Reportable 12/31/20 16:23 Tear Drop Cells Not Reportable 12/31/20 16:23 Ovalocytes Not Reportable 12/31/20 16:23 Helmet Cells Not Reportable 12/31/20 16:23 [place] Bodies Not Reportable 12/31/20 16:23 Orgas Rings Not Reportable 12/31/20 16:23 Jonathan Cells Not Reportable 12/31/20 16:23 Bite Cells Not Reportable 12/31/20 16:23 Crenated Cell Not Reportable 12/31/20 16:23 Elliptocytes Not Reportable 12/31/20 16:23 Acanthocytes (Spur) Not Reportable 12/31/20 16:23 Rouleaux Not Reportable 12/31/20 16:23 Hemoglobin C Crystals Not Reportable 12/31/20 16:23 Schistocytes Not Reportable 12/31/20 16:23 Malaria parasites Not Reportable 12/31/20 16:23 Dylon Bodies Not Reportable 12/31/20 16:23 Hem Pathologist Commnt No 12/31/20 16:23 APTT 49.4 Sec. (24.2-36.6) H 12/20/20 13:58 ABG pH 7.272 (7.320-7.450) L 01/07/21 04:17 POC ABG pCO2 50.1 mmHg (32.0-48.0) H 01/07/21 04:17 ABG pCO2 37.9 mm Hg 01/05/21 03:50 POC ABG pO2 106.5 mmHg (83-108) 01/07/21 04:17 ABG pO2 136.8 mm Hg (80.0-90.0) H 01/05/21 03:50 POC ABG HCO3 22.6 01/07/21 04:17 ABG HCO3 22.4 mmol/L (20.0-26.0) 01/05/21 03:50 ABG O2 Saturation 97.3 (0-100) 01/07/21 04:17 ABG O2 Content 9.8 (0.0-44) 01/05/21 03:50 POC ABG Base Excess -4.2 01/07/21 04:17 ABG Base Excess -2.3 mmol/L (-2.0-3.0) L 01/05/21 03:50 ABG Hemoglobin 8.4 (12.0-17.5) L 01/07/21 04:17 ABG Oxyhemoglobin 96.1 (94-98) 01/07/21 04:17 ABG Carboxyhemoglobin 1.5 % (0.0-5.0) 01/05/21 03:50 ABG Methemoglobin 0.3 (0.0-1.5) 01/07/21 04:17 ABG Sodium 128.6 mmol/L (136.0-145.0) L 01/07/21 04:17 ABG Potassium 3.9 mmol/L (3.40-4.50) 01/07/21 04:17 ABG Chloride 95.0 mmol/L (98-107) L 01/07/21 04:17 ABG Glucose 109 mg/dL (65-95) H 01/07/21 04:17 Oxyhemoglobin 96.7 % (95.0-99.0) 01/05/21 03:50 Carboxyhemoglobin 0.9 (0.5-1.5) 01/07/21 04:17 FiO2 50 % 01/05/21 03:50 FiO2 % 50.0 01/07/21 04:17 Sodium 133 mmol/L (137-145) L 01/07/21 03:10 Potassium 3.9 mmol/L (3.6-5.0) 01/07/21 03:10 Chloride 93.6 mmol/L (98-107) L 01/07/21 03:10 Carbon Dioxide 24 mmol/L (22-30) 01/07/21 03:10 Anion Gap 19 mmol/L 01/07/21 03:10 BUN 85 mg/dL (9-20) H 01/07/21 03:10 Creatinine 3.9 mg/dL (0.8-1.3) H 01/07/21 03:10 Estimated GFR 16 ml/min 01/07/21 03:10 BUN/Creatinine Ratio 22 % 01/07/21 03:10 Glucose 112 mg/dL (75-100) H 01/07/21 03:10 POC Glucose 106 mg/dL (70-105) H 01/07/21 05:06 Lactic Acid 1.70 mmol/L (0.7-2.0) 12/20/20 16:20 Calcium 8.5 mg/dL (8.4-10.2) 01/07/21 03:10 Ionized Calcium 3.3 mg/dL (4.8-5.6) L 12/27/20 14:40 Phosphorus 4.70 mg/dL (2.5-4.5) H D 01/07/21 03:10 Magnesium 2.20 mg/dL (1.7-2.3) 01/07/21 03:10 Total Bilirubin 0.50 mg/dL (0.1-1.2) 01/02/21 08:00 AST 47 units/L (5-40) H 01/02/21 08:00 ALT 26 units/L (7-56) 01/02/21 08:00 Alkaline Phosphatase 80 units/L (35-129) 01/02/21 08:00 Troponin T < 0.010 ng/mL (0.00-0.029) 12/20/20 13:58 Total Protein 5.0 g/dL (6.3-8.2) L 01/02/21 08:00 Albumin 1.6 g/dL (3.9-5) L 01/02/21 08:00 Albumin/Globulin Ratio 0.5 % 01/02/21 08:00 Triglycerides 144 mg/dL (2-149) 01/03/21 07:56 Arterial Blood Glucose 109 mg/dL (65-95) H 01/07/21 04:17 Arterial Blood Ionized Calcium 4.7 mg/dL (4.6-5.3) 01/07/21 04:17 Urine Color Yellow (Yellow) 12/23/20 12:15 Urine Turbidity Cloudy (Clear) 12/23/20 12:15 Urine pH 5.0 (5.0-7.0) 12/23/20 12:15 Ur Specific [place] 1.019 (1.003-1.030) 12/23/20 12:15 Urine Protein <15 mg/dl mg/dL (Negative) 12/23/20 12:15 Urine Glucose (UA) Neg mg/dL (Negative) 12/23/20 12:15 Urine Ketones Neg mg/dL (Negative) 12/23/20 12:15 Urine Blood Sm (Negative) 12/23/20 12:15 Urine Nitrite Neg (Negative) 12/23/20 12:15 Urine Bilirubin Neg (Negative) 12/23/20 12:15 Urine Urobilinogen < 2.0 mg/dL (<2.0) 12/23/20 12:15 Ur Leukocyte Esterase Neg (Negative) 12/23/20 12:15 Urine WBC (Auto) 5.0 /HPF (0.0-6.0) 12/23/20 12:15 Urine RBC (Auto) 2.0 /HPF (0.0-6.0) 12/23/20 12:15 U Epithel Cells (Auto) < 1.0 /HPF (0-13.0) 12/20/20 Unknown Urine Bacteria (Auto) 1+ /HPF (Negative) 12/23/20 12:15 Triple Phos Crystals 2+ 12/23/20 12:15 Hyaline Casts 19 /LPF 12/20/20 Unknown Urine Mucus Few /HPF 12/23/20 12:15 Urine Eosinophils None seen (None Seen) 12/23/20 12:15 Urine Creatinine 78.1 mg/dL (0.1-20.0) H 12/23/20 12:15 Urine Sodium 13 mmol/L 12/23/20 12:15 Fraction Sodium Excret 0.2 12/23/20 12:15 Random Vancomycin 7.9 ug/mL (0-40.0) 12/23/20 12:15 Coronavirus (PCR) Negative (Negative) 12/21/20 Unknown Hepatitis A IgM Ab Non-reactive (NonReactive) 12/30/20 14:40 Hep Bs Antigen Non-reactive (Negative) 12/30/20 14:40 Hep B Core IgM Ab Non-reactive (NonReactive) 12/30/20 14:40 Hepatitis C Antibody Non-reactive (NonReactive) 12/30/20 14:40 Blood Type A NEGATIVE 01/06/21 11:00 Antibody Screen Negative 01/06/21 11:00 Crossmatch See Detail 01/06/21 11:00 [place]/IV: Voiding Method Indwelling Catheter Active Medications - Current Medications Current Medications: Generic Name Dose Route Start Last Admin Trade Name Freq PRN Reason Stop Dose Admin Acetaminophen 650 mg 12/21/20 11:51 12/25/20 20:35 Acetaminophen 650 Mg Rect Supp MT 650 mg Q4H PRN Administration TEMP >/=100.4 Lipase/Protease/Amylase 1 each 01/07/21 08:44 Lipase 10,500/Protease 25,000/Amylase 43,750 (Units) Dr Cap FEEDTUBE PRN PRN For Clogged Feeding Tube Bisacodyl 10 mg 12/30/20 11:00 01/07/21 09:37 Bisacodyl 10 Mg Rect Supp MT 10 mg QDAY ASCENCION Administration Dextrose 50 ml 12/24/20 10:49 Dextrose 50% In Water (25gm) 50 Ml Syringe IV Q30MIN PRN Hypoglycemia Protocol Famotidine 20 mg 12/26/20 10:00 01/07/21 09:37 Famotidine 20 Mg/2 Ml Inj IV 20 mg DAILY ASCENCION Administration Heparin Sodium (Porcine) 5,000 unit 01/06/21 14:00 01/07/21 05:45 Heparin 5,000 Unit/1 Ml Vial SUB-Q 5,000 unit Q8HR ASCENCION Administration Hydromorphone HCl 1 mg 01/06/21 15:58 Hydromorphone 1 Mg/1 Ml Inj IV Q4H PRN Pain , Severe (7-10) Hydrophilic Ointment 1 applic 12/20/20 21:58 Lip Therapy Vaseline TP Q2HR PRN Dry Lips Fentanyl Citrate 2,000 mcg in 100 mls @ 6.01 mls/hr 12/20/20 22:00 01/07/21 07:44 Fentanyl Drip Premix IV 4 mcg/kg/hr TITR ASCENCION 24.04 mls/hr Administration Protocol 1 MCG/KG/HR Propofol 1,000 mg in 100 mls @ 3.606 mls/hr 12/20/20 22:00 01/07/21 07:45 Diprivan 10 Mg/Ml IV 25 mcg/kg/min TITR ASCENCION 18.03 mls/hr Titration Protocol 5 MCG/KG/MIN NORepinephrine/NS 8 MG-250 ML 8 mg in 250 mls @ 3.75 mls/hr 12/21/20 09:00 01/02/21 06:15 Norepinephrine/Ns 8 Mg-250 Ml (Double Conc) IV 0 mcg/min TITRATE ASCENCION 0 mls/hr Titration Protocol 2 MCG/MIN Vasopressin 20 unit/ Sodium 101 mls @ 9.09 mls/hr 12/24/20 09:00 01/02/21 09:49 Chloride IV 0 units/min TITR ASCENCION 0 mls/hr Titration Protocol 0.03 UNITS/MIN Sodium Chloride 100 mls @ 999 mls/hr 01/03/21 10:21 Nacl 0.9% IV MARILU PRN Hypotension Dexmedetomidine HCl 400 mcg/ 104 mls @ 7.322 mls/hr 01/04/21 11:00 01/07/21 07:00 Sodium Chloride IV 0.5 mcg/kg/hr TITRATE ASCENCION 18.304 mls/hr Titration Protocol 0.2 MCG/KG/HR Amino Acids/Electrolytes/Dextrose 2,400 mls @ 100 mls/hr 01/06/21 20:00 01/06/21 21:41 Tpn Adult IV 01/07/21 19:59 100 mls/hr DAILY@2000 ASCENCION Administration Protocol Sodium Chloride 500 mls @ 0 mls/hr 01/07/21 07:43 01/07/21 09:39 Nacl 0.9% 500 Ml IV 01/07/21 23:59 30 mls/hr ONCE NR Administration As Directed Insulin Human Regular 0 units 12/28/20 00:00 01/07/21 05:20 Insulin Regular, Human 100 Units/1 Ml SUB-Q Not Given Q6H [facility] Protocol Multi-Ingred Cream/Lotion/Oil/Oint 1 applic 12/20/20 21:58 01/03/21 01:13 Mineral Oil/Petrolatum, White Ophth Oint 3.5 Gm OU 1 applic Q4HR PRN Administration Dry Eye(s) Simple Syrup 15 ml 01/07/21 08:44 Simple Syrup 15 Ml FEEDTUBE PRN PRN Hypoglycemia Simple Syrup 30 ml 01/07/21 08:44 Simple Syrup 15 Ml FEEDTUBE PRN PRN Hypoglycemia Sodium Bicarbonate 325 mg 01/07/21 08:44 Sodium Bicarbonate 325 Mg Tab FEEDTUBE PRN PRN For Clogged Feeding Tube Sodium Chloride 10 ml 12/20/20 22:00 01/06/21 21:51 Sodium Chloride 0.9% 10 Ml Flush Syringe IV 10 ml BID ASCENCION Administration Sodium Chloride 10 ml 12/20/20 16:42 Sodium Chloride 0.9% 10 Ml Flush Syringe IV PRN PRN LINE FLUSH Nutrition/Malnutrition Assess - Dietary Evaluation Nutrition/Malnutrition Findings: Nutrition Notes Start: 12/21/20 09:06 Freq: Status: Active Protocol: Document 01/07/21 08:33 GER (Rec: 01/07/21 08:42 [facility] [id number]) Nutrition Notes Need for Assessment generated from: MD Order Initial or Follow up Reassessment Current Diagnosis Acute Kidney Injury,Coronary Artery Disease,Sepsis, Hypertension,Small Bowel Obstruction,Hyperlipidemia Other Pertinent Diagnosis gangrenous small bowel, s/p small bowel ressection, peritonitis Current Diet TPN at 100ml/hr Labs/Tests Na 133 Cl 93.6 BUN 85 Cr 3.9 Phos 4.7 Pertinent Medications Propofol at 18.03ml/hr ( provides 476 kcal) Height 6 ft Weight 140.8 kg [place] Body Weight (kg) 80.90 BMI 42.0 Weight Status Morbidly Obese Subjective/Other Information Day 15 CPN. MD wants to start trickle feeds. Pt remains on vent support. Percent of energy/protein needs met: 100% energy 75% pro Burn Absent Trauma Absent #2 Nutrition Diagnosis Increased nutrient needs ( specify in comment below) Diagnosis Progress(for reassessment Continues documentation) #1 Nutrition Diagnosis Inadequate oral intake Diagnosis Progress(for reassessment Continues documentation) Is patient on ventilator? Yes Is Patient Ambulatory and/or Out of Bed No REE-([facility]-confined to bed) 2717.172 Kcal/Kg value to use for calculation 14 Approximate Energy Requirements Using 1971 kcal/Kg Calculation Used for Recommendations Kcal/kg Additional Notes Pro needs >1.2g/kg adjBW: > 133g/day Fluid needs per MD. Nutrition Intervention Nutrition Support: Decrease CPN rate to 83.33ml/ hr: MVI, 5% amino acids, 20% dextrose, 5 mEq Mg. Osmolality: 1575. Start Nepro at 10ml/hr for trickle feeds; flush with 50ml water q4h or per MD order. Kcal 2,192 Protein (gm) 119 Carbohydrates (gm) 439 Fat (gm) 23 Fluid (mL) 2,240 Fiber (gm) 3 Goal #1 Meet needs as best as possible via CPN Goal #2 TF tolerance Follow-Up By: 01/08/21 Additional Comments Labs in am: BMP, Mg, Phos Assess TF tolerance, vent status, propofol <AVTAR MAYO - Last Filed: 01/07/21 14:10> Assessment and Plan Assessment and plan: Agree with assessment plan as outlined by nurse practitioner. Labs and consult notes reviewed. Patient with ABG of pH 7.27, critical care has made changes to the vent. Patient continues to be sedated and on the vent, discussed the continued swelling of the scrotum's, will get ultrasound. Very guarded prognosis. Hospitalist Physical - Constitutional Vitals: Temp Pulse Resp BP Pulse Ox 97.8 F 64 24 110/61 100 01/07/21 12:20 01/07/21 14:00 01/07/21 13:00 01/07/21 14:00 01/07/21 13:00 HEART Score - HEART Score Troponin: Troponin T < 0.010 ng/mL (0.00-0.029) 12/20/20 13:58 Results - Labs CBC & Chem 7: 01/07/21 03:10 01/07/21 03:10 Labs: Laboratory Last Values WBC 15.3 K/mm3 (4.5-11.0) H 01/07/21 03:10 RBC 2.30 M/mm3 (3.65-5.03) L 01/07/21 03:10 Hgb 6.7 gm/dl (11.8-15.2) L 01/07/21 03:10 Hct 20.1 % (35.5-45.6) L 01/07/21 03:10 MCV 87 fl (84-94) 01/07/21 03:10 MCH 29 pg (28-32) 01/07/21 03:10 MCHC 33 % (32-34) 01/07/21 03:10 RDW 16.6 % (13.2-15.2) H 01/07/21 03:10 Plt Count 291 K/mm3 (140-440) 01/07/21 03:10 Add Manual Diff Complete 12/31/20 16:23 Total Counted 100 12/31/20 16:23 Seg Neutrophils % Aluminum Polisher 12/31/20 16:23 Seg Neuts % (Manual) 91.0 % (40.0-70.0) H 12/31/20 16:23 Band Neutrophils % 2.0 % 12/31/20 16:23 Lymphocytes % (Manual) 6.0 % (13.4-35.0) L 12/31/20 16:23 Monocytes % (Manual) 1.0 % (0.0-7.3) 12/31/20 16:23 Nucleated RBC % Not Reportable 12/31/20 16:23 Seg Neutrophils # Man 16.4 K/mm3 (1.8-7.7) H 12/31/20 16:23 Band Neutrophils # 0.4 K/mm3 12/31/20 16:23 Lymphocytes # (Manual) 1.1 K/mm3 (1.2-5.4) L 12/31/20 16:23 Abs React Lymphs (Man) 0.0 K/mm3 12/31/20 16:23 Monocytes # (Manual) 0.2 K/mm3 (0.0-0.8) 12/31/20 16:23 Eosinophils # (Manual) 0.0 K/mm3 (0.0-0.4) 12/31/20 16:23 Basophils # (Manual) 0.0 K/mm3 (0.0-0.1) 12/31/20 16:23 Metamyelocytes # 0.0 K/mm3 12/31/20 16:23 Myelocytes # 0.0 K/mm3 12/31/20 16:23 Promyelocytes # 0.0 K/mm3 12/31/20 16:23 Blast Cells # 0.0 K/mm3 12/31/20 16:23 WBC Morphology Not Reportable 12/31/20 16:23 Hypersegmented Neuts Not Reportable 12/31/20 16:23 Hyposegmented Neuts Not Reportable 12/31/20 16:23 Hypogranular Neuts Not Reportable 12/31/20 16:23 Smudge Cells Not Reportable 12/31/20 16:23 Toxic Granulation Not Reportable 12/31/20 16:23 Toxic Vacuolation Not Reportable 12/31/20 16:23 Dohle Bodies Not Reportable 12/31/20 16:23 Pelger-Huet Anomaly Not Reportable 12/31/20 16:23 Mirian Rods Not Reportable 12/31/20 16:23 Platelet Estimate Consistent w auto 12/31/20 16:23 Clumped Platelets Not Reportable 12/31/20 16:23 Plt Clumps, EDTA Not Reportable 12/31/20 16:23 Large Platelets Not Reportable 12/31/20 16:23 Giant Platelets Not Reportable 12/31/20 16:23 Platelet Satelliting Not Reportable 12/31/20 16:23 Plt Morphology Comment Not Reportable 12/31/20 16:23 RBC Morphology Not Reportable 12/31/20 16:23 Dimorphic RBCs Not Reportable 12/31/20 16:23 Polychromasia Not Reportable 12/31/20 16:23 Hypochromasia Not Reportable 12/31/20 16:23 Poikilocytosis Not Reportable 12/31/20 16:23 Anisocytosis 1+ 12/31/20 16:23 Microcytosis Not Reportable 12/31/20 16:23 Macrocytosis Not Reportable 12/31/20 16:23 Spherocytes Not Reportable 12/31/20 16:23 Pappenheimer Bodies Not Reportable 12/31/20 16:23 Sickle Cells Not Reportable 12/31/20 16:23 Target Cells Not Reportable 12/31/20 16:23 Tear Drop Cells Not Reportable 12/31/20 16:23 Ovalocytes Not Reportable 12/31/20 16:23 Helmet Cells Not Reportable 12/31/20 16:23 [place] Bodies Not Reportable 12/31/20 16:23 Orgas Rings Not Reportable 12/31/20 16:23 Reynolds Cells Not Reportable 12/31/20 16:23 Bite Cells Not Reportable 12/31/20 16:23 Crenated Cell Not Reportable 12/31/20 16:23 Elliptocytes Not Reportable 12/31/20 16:23 Acanthocytes (Spur) Not Reportable 12/31/20 16:23 Rouleaux Not Reportable 12/31/20 16:23 Hemoglobin C Crystals Not Reportable 12/31/20 16:23 Schistocytes Not Reportable 12/31/20 16:23 Malaria parasites Not Reportable 12/31/20 16:23 Dylon Bodies Not Reportable 12/31/20 16:23 Hem Pathologist Commnt No 12/31/20 16:23 APTT 49.4 Sec. (24.2-36.6) H 12/20/20 13:58 ABG pH 7.272 (7.320-7.450) L 01/07/21 04:17 POC ABG pCO2 50.1 mmHg (32.0-48.0) H 01/07/21 04:17 ABG pCO2 37.9 mm Hg 01/05/21 03:50 POC ABG pO2 106.5 mmHg (83-108) 01/07/21 04:17 ABG pO2 136.8 mm Hg (80.0-90.0) H 01/05/21 03:50 POC ABG HCO3 22.6 01/07/21 04:17 ABG HCO3 22.4 mmol/L (20.0-26.0) 01/05/21 03:50 ABG O2 Saturation 97.3 (0-100) 01/07/21 04:17 ABG O2 Content 9.8 (0.0-44) 01/05/21 03:50 POC ABG Base Excess -4.2 01/07/21 04:17 ABG Base Excess -2.3 mmol/L (-2.0-3.0) L 01/05/21 03:50 ABG Hemoglobin 8.4 (12.0-17.5) L 01/07/21 04:17 ABG Oxyhemoglobin 96.1 (94-98) 01/07/21 04:17 ABG Carboxyhemoglobin 1.5 % (0.0-5.0) 01/05/21 03:50 ABG Methemoglobin 0.3 (0.0-1.5) 01/07/21 04:17 ABG Sodium 128.6 mmol/L (136.0-145.0) L 01/07/21 04:17 ABG Potassium 3.9 mmol/L (3.40-4.50) 01/07/21 04:17 ABG Chloride 95.0 mmol/L (98-107) L 01/07/21 04:17 ABG Glucose 109 mg/dL (65-95) H 01/07/21 04:17 Oxyhemoglobin 96.7 % (95.0-99.0) 01/05/21 03:50 Carboxyhemoglobin 0.9 (0.5-1.5) 01/07/21 04:17 FiO2 50 % 01/05/21 03:50 FiO2 % 50.0 01/07/21 04:17 Sodium 133 mmol/L (137-145) L 01/07/21 03:10 Potassium 3.9 mmol/L (3.6-5.0) 01/07/21 03:10 Chloride 93.6 mmol/L (98-107) L 01/07/21 03:10 Carbon Dioxide 24 mmol/L (22-30) 01/07/21 03:10 Anion Gap 19 mmol/L 01/07/21 03:10 BUN 85 mg/dL (9-20) H 01/07/21 03:10 Creatinine 3.9 mg/dL (0.8-1.3) H 01/07/21 03:10 Estimated GFR 16 ml/min 01/07/21 03:10 BUN/Creatinine Ratio 22 % 01/07/21 03:10 Glucose 112 mg/dL (75-100) H 01/07/21 03:10 POC Glucose 103 mg/dL (70-105) 01/07/21 12:01 Lactic Acid 1.70 mmol/L (0.7-2.0) 12/20/20 16:20 Calcium 8.5 mg/dL (8.4-10.2) 01/07/21 03:10 Ionized Calcium 3.3 mg/dL (4.8-5.6) L 12/27/20 14:40 Phosphorus 4.70 mg/dL (2.5-4.5) H D 01/07/21 03:10 Magnesium 2.20 mg/dL (1.7-2.3) 01/07/21 03:10 Total Bilirubin 0.50 mg/dL (0.1-1.2) 01/02/21 08:00 AST 47 units/L (5-40) H 01/02/21 08:00 ALT 26 units/L (7-56) 01/02/21 08:00 Alkaline Phosphatase 80 units/L (35-129) 01/02/21 08:00 Troponin T < 0.010 ng/mL (0.00-0.029) 12/20/20 13:58 Total Protein 5.0 g/dL (6.3-8.2) L 01/02/21 08:00 Albumin 1.6 g/dL (3.9-5) L 01/02/21 08:00 Albumin/Globulin Ratio 0.5 % 01/02/21 08:00 Triglycerides 144 mg/dL (2-149) 01/03/21 07:56 Arterial Blood Glucose 109 mg/dL (65-95) H 01/07/21 04:17 Arterial Blood Ionized Calcium 4.7 mg/dL (4.6-5.3) 01/07/21 04:17 Urine Color Yellow (Yellow) 12/23/20 12:15 Urine Turbidity Cloudy (Clear) 12/23/20 12:15 Urine pH 5.0 (5.0-7.0) 12/23/20 12:15 Ur Specific [place] 1.019 (1.003-1.030) 12/23/20 12:15 Urine Protein <15 mg/dl mg/dL (Negative) 12/23/20 12:15 Urine Glucose (UA) Neg mg/dL (Negative) 12/23/20 12:15 Urine Ketones Neg mg/dL (Negative) 12/23/20 12:15 Urine Blood Sm (Negative) 12/23/20 12:15 Urine Nitrite Neg (Negative) 12/23/20 12:15 Urine Bilirubin Neg (Negative) 12/23/20 12:15 Urine Urobilinogen < 2.0 mg/dL (<2.0) 12/23/20 12:15 Ur Leukocyte Esterase Neg (Negative) 12/23/20 12:15 Urine WBC (Auto) 5.0 /HPF (0.0-6.0) 12/23/20 12:15 Urine RBC (Auto) 2.0 /HPF (0.0-6.0) 12/23/20 12:15 U Epithel Cells (Auto) < 1.0 /HPF (0-13.0) 12/20/20 Unknown Urine Bacteria (Auto) 1+ /HPF (Negative) 12/23/20 12:15 Triple Phos Crystals 2+ 12/23/20 12:15 Hyaline Casts 19 /LPF 12/20/20 Unknown Urine Mucus Few /HPF 12/23/20 12:15 Urine Eosinophils None seen (None Seen) 12/23/20 12:15 Urine Creatinine 78.1 mg/dL (0.1-20.0) H 12/23/20 12:15 Urine Sodium 13 mmol/L 12/23/20 12:15 Fraction Sodium Excret 0.2 12/23/20 12:15 Random Vancomycin 7.9 ug/mL (0-40.0) 12/23/20 12:15 Coronavirus (PCR) Negative (Negative) 12/21/20 Unknown Hepatitis A IgM Ab Non-reactive (NonReactive) 12/30/20 14:40 Hep Bs Antigen Non-reactive (Negative) 12/30/20 14:40 Hep B Core IgM Ab Non-reactive (NonReactive) 12/30/20 14:40 Hepatitis C Antibody Non-reactive (NonReactive) 12/30/20 14:40 Blood Type A NEGATIVE 01/06/21 11:00 Antibody Screen Negative 01/06/21 11:00 Crossmatch See Detail 01/06/21 11:00 [place]/IV: Voiding Method Indwelling Catheter Active Medications - Current Medications Current Medications: Generic Name Dose Route Start Last Admin Trade Name Freq PRN Reason Stop Dose Admin Acetaminophen 650 mg 12/21/20 11:51 12/25/20 20:35 Acetaminophen 650 Mg Rect Supp MT 650 mg Q4H PRN Administration TEMP >/=100.4 Lipase/Protease/Amylase 1 each 01/07/21 08:44 Lipase 10,500/Protease 25,000/Amylase 43,750 (Units) Dr Cap FEEDTUBE PRN PRN For Clogged Feeding Tube Bisacodyl 10 mg 12/30/20 11:00 01/07/21 09:37 Bisacodyl 10 Mg Rect Supp MT 10 mg QDAY ASCENCION Administration Dextrose 50 ml 12/24/20 10:49 Dextrose 50% In Water (25gm) 50 Ml Syringe IV Q30MIN PRN Hypoglycemia Protocol Famotidine 20 mg 12/26/20 10:00 01/07/21 09:37 Famotidine 20 Mg/2 Ml Inj IV 20 mg DAILY ASCENCION Administration Heparin Sodium (Porcine) 5,000 unit 01/06/21 14:00 01/07/21 05:45 Heparin 5,000 Unit/1 Ml Vial SUB-Q 5,000 unit Q8HR ASCENCION Administration Hydromorphone HCl 1 mg 01/06/21 15:58 Hydromorphone 1 Mg/1 Ml Inj IV Q4H PRN Pain , Severe (7-10) Hydrophilic Ointment 1 applic 12/20/20 21:58 Lip Therapy Vaseline TP Q2HR PRN Dry Lips Fentanyl Citrate 2,000 mcg in 100 mls @ 6.01 mls/hr 12/20/20 22:00 01/07/21 11:14 Fentanyl Drip Premix IV 4 mcg/kg/hr TITR ASCENCION 24.04 mls/hr Administration Protocol 1 MCG/KG/HR Propofol 1,000 mg in 100 mls @ 3.606 mls/hr 12/20/20 22:00 01/07/21 10:46 Diprivan 10 Mg/Ml IV 25 mcg/kg/min TITR ASCENCION 18.03 mls/hr Administration Protocol 5 MCG/KG/MIN NORepinephrine/NS 8 MG-250 ML 8 mg in 250 mls @ 3.75 mls/hr 12/21/20 09:00 01/02/21 06:15 Norepinephrine/Ns 8 Mg-250 Ml (Double Conc) IV 0 mcg/min TITRATE ASCENCION 0 mls/hr Titration Protocol 2 MCG/MIN Vasopressin 20 unit/ Sodium 101 mls @ 9.09 mls/hr 12/24/20 09:00 01/02/21 09:49 Chloride IV 0 units/min TITR ASCENCION 0 mls/hr Titration Protocol 0.03 UNITS/MIN Sodium Chloride 100 mls @ 999 mls/hr 01/03/21 10:21 Nacl 0.9% IV MARILU PRN Hypotension Dexmedetomidine HCl 400 mcg/ 104 mls @ 7.322 mls/hr 01/04/21 11:00 01/07/21 11:17 Sodium Chloride IV 0.5 mcg/kg/hr TITRATE ASCENCION 18.304 mls/hr Administration Protocol 0.2 MCG/KG/HR Amino Acids/Electrolytes/Dextrose 2,400 mls @ 100 mls/hr 01/06/21 20:00 01/06/21 21:41 Tpn Adult IV 01/07/21 19:59 100 mls/hr DAILY@[email or web address] Administration Protocol Sodium Chloride 500 mls @ 0 mls/hr 01/07/21 07:43 01/07/21 12:29 Nacl 0.9% 500 Ml IV 01/07/21 23:59 0 mls/hr ONCE NR Infusion As Directed Amino Acids/Electrolytes/Dextrose 1,999.92 mls @ 83.33 mls/hr 01/07/21 20:00 Tpn Adult IV 01/08/21 19:59 DAILY@[email or web address] Protocol Insulin Human Regular 0 units 12/28/20 00:00 01/07/21 12:29 Insulin Regular, Human 100 Units/1 Ml SUB-Q Not Given Q6H [facility] Protocol Multi-Ingred Cream/Lotion/Oil/Oint 1 applic 12/20/20 21:58 01/03/21 01:13 Mineral Oil/Petrolatum, White Ophth Oint 3.5 Gm OU 1 applic Q4HR PRN Administration Dry Eye(s) Simple Syrup 15 ml 01/07/21 08:44 Simple Syrup 15 Ml FEEDTUBE PRN PRN Hypoglycemia Simple Syrup 30 ml 01/07/21 08:44 Simple Syrup 15 Ml FEEDTUBE PRN PRN Hypoglycemia Sodium Bicarbonate 325 mg 01/07/21 08:44 Sodium Bicarbonate 325 Mg Tab FEEDTUBE PRN PRN For Clogged Feeding Tube Sodium Chloride 10 ml 12/20/20 22:00 01/06/21 21:51 Sodium Chloride 0.9% 10 Ml Flush Syringe IV 10 ml BID ASCENCION Administration Sodium Chloride 10 ml 12/20/20 16:42 Sodium Chloride 0.9% 10 Ml Flush Syringe IV PRN PRN LINE FLUSH Nutrition/Malnutrition Assess - Dietary Evaluation Nutrition/Malnutrition Findings: Nutrition Notes Start: 12/21/20 09:06 Freq: Status: Active Protocol: Document 01/07/21 08:33 GER (Rec: 01/07/21 08:42 GER [id number]) Nutrition Notes Need for Assessment generated from: MD Order Initial or Follow up Reassessment Current Diagnosis Acute Kidney Injury,Coronary Artery Disease,Sepsis, Hypertension,Small Bowel Obstruction,Hyperlipidemia Other Pertinent Diagnosis gangrenous small bowel, s/p small bowel ressection, peritonitis Current Diet TPN at 100ml/hr Labs/Tests Na 133 Cl 93.6 BUN 85 Cr 3.9 Phos 4.7 Pertinent Medications Propofol at 18.03ml/hr ( provides 476 kcal) Height 6 ft Weight 140.8 kg [place] Body Weight (kg) 80.90 BMI 42.0 Weight Status Morbidly Obese Subjective/Other Information Day 15 CPN. MD wants to start trickle feeds. Pt remains on vent support. Percent of energy/protein needs met: 100% energy 75% pro Burn Absent Trauma Absent #2 Nutrition Diagnosis Increased nutrient needs ( specify in comment below) Diagnosis Progress(for reassessment Continues documentation) #1 Nutrition Diagnosis Inadequate oral intake Diagnosis Progress(for reassessment Continues documentation) Is patient on ventilator? Yes Is Patient Ambulatory and/or Out of Bed No REE-([facility]-conf[facility] bed) 2717.172 Kcal/Kg value to use for calculation 14 Approximate Energy Requirements Using 1971 kcal/Kg Calculation Used for Recommendations Kcal/kg Additional Notes Pro needs >1.2g/kg adjBW: > 133g/day Fluid needs per MD. Nutrition Intervention Nutrition Support: Decrease CPN rate to 83.33ml/ hr: MVI, 5% amino acids, 20% dextrose, 5 mEq Mg. Osmolality: 1575. Start Nepro at 10ml/hr for trickle feeds; flush with 50ml water q4h or per MD order. Kcal 2,192 Protein (gm) 119 Carbohydrates (gm) 439 Fat (gm) 23 Fluid (mL) 2,240 Fiber (gm) 3 Goal #1 Meet needs as best as possible via CPN Goal #2 TF tolerance Follow-Up By: 01/08/21 Additional Comments Labs in am: BMP, Mg, Phos Assess TF tolerance, vent status, propofol
--- NOTE | 2021-01-07 11:02 | Progress Note ---
Assessment and Plan POD#19 s/p ex lap and small bowel resection for necrotic bowel secondary to incarcerated ventral hernia left with open abdomen. POD#16 s/p abdominal exploration with segmental small bowel resection. abthera placement POD#13 s/p abdominal exploration, small bowel resection for ischemia, abthera placement POD#10 s/p abdominal exploration with small bowel anastamosis and abthera vac placement POD#6 s/p abdomen closure with mesh Afebrile and stable off pressors. Renal failure, continue dialysis per nephrology Respiratory insufficiency, wean to extubation per tosser resume NGT to LIWS. Anemia likely due to illness and procedural losses. No clinical signs of identifiable bleeding. Will follow up post transfusion labs. Continue supportive care. Prognosis is guarded. Subjective Date of service: 01/07/21 Narrative: Patient did not tolerate NG tube clamping, he had high residual output and was resumed to suction. Patient continues to have bowel movement. Patient was transfused 1 unit of PRBC last night, with no appropriate change in this morning's H/H. Patient is currently receiving second unit of PRBC. Unable to wean off of vent due to agitation. Objective Vital Signs - 12hr 01/06/21 01/06/21 01/06/21 23:00 23:21 23:23 Temperature 98.7 F Pulse Rate 67 67 70 Pulse Rate [ From Monitor] Respiratory 28 H 28 H Rate Blood Pressure 88/54 92/57 92/57 O2 Sat by Pulse 100 100 100 Oximetry 01/06/21 01/06/21 01/07/21 23:30 23:45 00:00 Temperature Pulse Rate 84 67 67 Pulse Rate [ 73 From Monitor] Respiratory 16 28 H Rate Blood Pressure 149/84 91/56 O2 Sat by Pulse 97 100 100 Oximetry 01/07/21 01/07/21 01/07/21 00:30 01:00 01:30 Temperature Pulse Rate 67 66 65 Pulse Rate [ From Monitor] Respiratory 28 H 28 H 28 H Rate Blood Pressure 89/57 92/54 96/58 O2 Sat by Pulse 99 99 Oximetry 01/07/21 01/07/21 01/07/21 02:00 02:30 03:00 Temperature Pulse Rate 66 69 67 Pulse Rate [ From Monitor] Respiratory 28 H 28 H 28 H Rate Blood Pressure 95/57 101/58 102/61 O2 Sat by Pulse 96 97 97 Oximetry 01/07/21 01/07/21 01/07/21 03:30 03:31 04:01 Temperature 98.7 F Pulse Rate 84 94 H Pulse Rate [ From Monitor] Respiratory 10 L 23 Rate Blood Pressure 98/57 119/100 O2 Sat by Pulse 99 94 Oximetry 01/07/21 01/07/21 01/07/21 04:02 04:30 05:00 Temperature Pulse Rate 92 H 92 H 84 Pulse Rate [ From Monitor] Respiratory 20 14 Rate Blood Pressure 119/100 125/63 103/58 O2 Sat by Pulse 100 96 97 Oximetry 01/07/21 01/07/21 01/07/21 05:30 05:35 05:40 Temperature Pulse Rate 74 69 Pulse Rate [ From Monitor] Respiratory 9 L Rate Blood Pressure 85/50 O2 Sat by Pulse 97 100 Oximetry 01/07/21 01/07/21 01/07/21 06:00 06:30 07:00 Temperature Pulse Rate 69 66 66 Pulse Rate [ From Monitor] Respiratory 9 L 28 H 28 H Rate Blood Pressure 81/55 92/56 93/55 O2 Sat by Pulse 98 100 Oximetry 01/07/21 01/07/21 01/07/21 07:27 07:30 08:00 Temperature 98.4 F Pulse Rate 66 73 Pulse Rate [ 74 From Monitor] Respiratory 12 31 H Rate Blood Pressure 115/69 111/62 O2 Sat by Pulse 99 99 99 Oximetry 01/07/21 01/07/21 01/07/21 08:01 08:30 08:45 Temperature Pulse Rate 93 H 100 H 100 H Pulse Rate [ From Monitor] Respiratory 32 H 31 H 22 Rate Blood Pressure 140/84 133/81 135/82 O2 Sat by Pulse 98 93 93 Oximetry 01/07/21 01/07/21 01/07/21 09:00 09:15 09:20 Temperature Pulse Rate 79 73 71 Pulse Rate [ From Monitor] Respiratory 19 24 Rate Blood Pressure 93/52 84/47 84/47 O2 Sat by Pulse 95 94 95 Oximetry 01/07/21 01/07/21 01/07/21 09:30 09:45 10:00 Temperature Pulse Rate 70 69 68 Pulse Rate [ From Monitor] Respiratory 24 24 24 Rate Blood Pressure 85/47 89/51 89/51 O2 Sat by Pulse 94 95 95 Oximetry 01/07/21 01/07/21 01/07/21 10:05 10:15 10:20 Temperature 98.1 F 98.1 F Pulse Rate 68 78 77 Pulse Rate [ From Monitor] Respiratory 24 22 25 H Rate Blood Pressure 89/51 89/51 105/70 O2 Sat by Pulse 96 95 96 Oximetry 01/07/21 01/07/21 10:30 10:50 Temperature 98.4 F Pulse Rate 80 87 Pulse Rate [ From Monitor] Respiratory 25 H 26 H Rate Blood Pressure 106/59 115/68 O2 Sat by Pulse 98 97 Oximetry - General physical appearance well developed, no distress, no pain, chronically ill, obese - Respiratory normal expansion, normal respiratory effort - Abdomen soft, other (incision c/d/i, LAURA drains serous) - Genitourinary other (massive scrotal edema) - Labs 01/07/21 03:10 01/07/21 03:10 Diabetes panel 01/07/21 Range/Units 03:10 Sodium 133 L (137-145) mmol/L Potassium 3.9 (3.6-5.0) mmol/L Chloride 93.6 L (98-107) mmol/L Carbon Dioxide 24 (22-30) mmol/L BUN 85 H (9-20) mg/dL Creatinine 3.9 H (0.8-1.3) mg/dL Glucose 112 H (75-100) mg/dL Calcium 8.5 (8.4-10.2) mg/dL Calcium panel 01/07/21 Range/Units 03:10 Calcium 8.5 (8.4-10.2) mg/dL Phosphorus 4.70 H D (2.5-4.5) mg/dL Pituitary panel 01/07/21 Range/Units 03:10 Sodium 133 L (137-145) mmol/L Potassium 3.9 (3.6-5.0) mmol/L Chloride 93.6 L (98-107) mmol/L Carbon Dioxide 24 (22-30) mmol/L BUN 85 H (9-20) mg/dL Creatinine 3.9 H (0.8-1.3) mg/dL Glucose 112 H (75-100) mg/dL Calcium 8.5 (8.4-10.2) mg/dL Adrenal panel 01/07/21 Range/Units 03:10 Sodium 133 L (137-145) mmol/L Potassium 3.9 (3.6-5.0) mmol/L Chloride 93.6 L (98-107) mmol/L Carbon Dioxide 24 (22-30) mmol/L BUN 85 H (9-20) mg/dL Creatinine 3.9 H (0.8-1.3) mg/dL Glucose 112 H (75-100) mg/dL Calcium 8.5 (8.4-10.2) mg/dL
--- NOTE | 2021-01-07 14:05 | Progress Note ---
Assessment and Plan Cultures: 12/20/2020 sputum culture: In process 12/20/2020 blood culture: No growth 12/20/2020 urine culture: Usual skin giorgio 12/20/2020 tracheal aspirate culture: Mucor A/P: 60-year-old male with obesity, hypertension, tobacco abuse, coronary artery disease, admitted to the hospital on 12/20/2020 with: #Septic shock: Resolved. Leukocytosis improving. No fever. Secondary to intra-abdominal source, peritonitis. Patient with necrotic bowel secondary to incarcerated ventral hernia. Status post exploratory laparotomy, extensive adhesiolysis, small bowel resection and peritoneal lavage along with ABThera VAC placement on 12/20/2020, replacement 12/29/2020. Off pressors. Last surgery abdomen closure with mesh 01/02/2021 #JONI: Renally dose antibiotics. On hemodialysis. #Morbid obesity Recs: -continue renally dosed Zosyn. Last dose today. -continue Fluconazole 200 mg daily. Today. -Will continue antibiotics until 5 days post his final surgery, -Believe Mucor in tracheal aspirate is a colonizer of the tube. Minimal immunosuppression with diabetes, otherwise none. Agree with avoidance of steroids. Nataliya Triplett MD [facility] ([facility]) Office [phone] Subjective Date of service: 01/07/21 Principal diagnosis: SBO and necrosis of large part of small intestine Interval history: Remains intubated, currently on hemodialysis, no fever Objective - Exam Narrative Exam: General appearance: Sedated, intubated Eyes: anicteric sclerae, moist conjunctivae; no lid-lag; PERRLA HENT: Normocephalic, Atraumatic; normal external ears, nares open, oropharynx NG tube in place Neck: supple, tracheal midline, no JVD Lungs: Diminished breath sounds CV: Soft, obese Abdomen: Soft, non-tender; no masses or hepatosplenomegaly Extremities: Bilateral leg edema Skin: Large scrotum, Lawrence in place Psych: Sedated Neuro: Sedated - Constitutional Vitals: Vital Signs Temp Pulse Resp BP Pulse Ox 97.8 F 68 24 98/56 100 01/07/21 12:20 01/07/21 13:45 01/07/21 13:00 01/07/21 13:45 01/07/21 13:00 Temperature -Last 24 Hours Temperature 97.8 F Temperature 97.9 F Temperature 97.9 F Temperature 97.8 F Temperature 97.8 F Temperature 98.4 F Temperature 98.1 F Temperature 98.1 F Temperature 98.4 F Temperature 98.7 F Temperature 98.7 F Temperature 98.6 F Temperature 98.6 F Temperature 98.6 F Temperature 98.6 F Temperature 98.6 F Temperature 98.3 F Temperature 98.3 F Temperature 98.3 F Temperature 98.8 F - Labs CBC & Chem 7: 01/07/21 03:10 01/07/21 03:10 Labs: Abnormal lab results 01/06/21 01/06/21 01/07/21 Range/Units 11:00 23:44 03:10 WBC 15.3 H (4.5-11.0) K/mm3 RBC 2.30 L (3.65-5.03) M/mm3 Hgb 6.7 L (11.8-15.2) gm/dl Hct 20.1 L (35.5-45.6) % RDW 16.6 H (13.2-15.2) % ABG pH (7.320-7.450) POC ABG pCO2 (32.0-48.0) mmHg ABG Hemoglobin (12.0-17.5) ABG Sodium (136.0-145.0) mmol/L ABG Chloride (98-107) mmol/L ABG Glucose (65-95) mg/dL Sodium (137-145) mmol/L Chloride (98-107) mmol/L BUN (9-20) mg/dL Creatinine (0.8-1.3) mg/dL Glucose (75-100) mg/dL POC Glucose 118 H (70-105) mg/dL Phosphorus (2.5-4.5) mg/dL Arterial Blood Glucose (65-95) mg/dL Crossmatch See Detail 01/07/21 01/07/21 01/07/21 Range/Units 03:10 04:17 05:06 WBC (4.5-11.0) K/mm3 RBC (3.65-5.03) M/mm3 Hgb (11.8-15.2) gm/dl Hct (35.5-45.6) % RDW (13.2-15.2) % ABG pH 7.272 L (7.320-7.450) POC ABG pCO2 50.1 H (32.0-48.0) mmHg ABG Hemoglobin 8.4 L (12.0-17.5) ABG Sodium 128.6 L (136.0-145.0) mmol/L ABG Chloride 95.0 L (98-107) mmol/L ABG Glucose 109 H (65-95) mg/dL Sodium 133 L (137-145) mmol/L Chloride 93.6 L (98-107) mmol/L BUN 85 H (9-20) mg/dL Creatinine 3.9 H (0.8-1.3) mg/dL Glucose 112 H (75-100) mg/dL POC Glucose 106 H (70-105) mg/dL Phosphorus 4.70 H D (2.5-4.5) mg/dL Arterial Blood Glucose 109 H (65-95) mg/dL Crossmatch
[2021-01-07 16:34] LABS: Hematocrit 24.2 % (35.5-45.6); Hemoglobin 8.1 gm/dl (11.8-15.2)
[2021-01-07 16:45] LABS: INR 1.08 (0.87-1.13)
--- NOTE | 2021-01-07 19:43 | Ultrasound Report ---
ULTRASOUND SCROTUM INDICATION / CLINICAL INFORMATION: discoloration. COMPARISON: None available. FINDINGS -- RIGHT TESTIS: Size = 5.9 cm. - Appearance: No significant abnormality. - Cyst or Mass: None. - Color Doppler Flow: No significant abnormality. EPIDIDYMIS: No significant abnormality. HYDROCELE: Trace VARICOCELE: None demonstrated. FINDINGS -- LEFT TESTIS: Size = 5.4 cm. - Appearance: No significant abnormality. - Cyst or Mass: None. - Color Doppler Flow: No significant abnormality. EPIDIDYMIS: No significant abnormality. HYDROCELE: Trace VARICOCELE: None demonstrated. ADDITIONAL FINDINGS: There is extensive soft tissue edema in the scrotum. No organized collection. IMPRESSION: 1. Extensive soft tissue edema in the scrotum, which is nonspecific. No organized collection. 2. No significant sonographic abnormality of the testicles. No evidence torsion. 3. Trace bilateral hydroceles, likely reactive. Signer Name: Tyrone Stein MD Signed: 01/07/2021 7:39 PM Workstation Name: [id number]
[2021-01-07] MEDS ORDERED: TOTAL PARENTERAL NUTRITION 1,999.92 ML IV SCH (20:00)
--- NOTE | 2021-01-07 20:13 | Progress Note ---
Assessment and Plan Impression * Acute kidney injury. * Incarcerated hernia with ischemic bowel. Status post bowel resection * Hypernatremia, now with hyponatremia * Sepsis * Respiratory failure, intubated * Hyperkalemia * Metabolic Acidosis, Gap * Hypoalbuminemia * Anemia Recommendations * Started HD 12/30 for worsening renal function, electrolyte abnormalities, and volume control * Continue HD TTS * Assess daily for needs of additional sessions * Hold IVF * Transfuse for hgb < 7 * TPN per nutrition/primary * Pressors prn to maintain MAP greater than 65 * Avoid nephrotoxins * Monitor fluid status and electrolytes * Strict I/O * Primary and consult notes reviewed Subjective Date of service: 01/07/21 Principal diagnosis: SBO and necrosis of large part of small intestine Interval history: Remains intubated. Seen during HD. Objective - Exam Narrative Exam: General: Mild distress. Intubated HEENT: Oral mucosa moist Neck: Supple, no JVD Chest: Intubated, mechanical breath sounds Heart: RRR, S1 and S2, no pericardial rub Abdomen: Open abdomen Extremity: No peripheral cyanosis, edema Neurological: Unable to follow commands Dermatology: No skin rash Psych: Mild agitation Musculoskeletal: No joint effusion - Vital Signs Vital signs: Vital Signs - 12hr 01/07/21 01/07/21 01/07/21 08:30 08:45 09:00 Temperature Pulse Rate 100 H 100 H 79 Pulse Rate [ From Monitor] Respiratory 31 H 22 19 Rate Blood Pressure 133/81 135/82 93/52 O2 Sat by Pulse 93 93 95 Oximetry O2 Sat by Pulse Oximetry [ Anterior Bilateral Throughout] 01/07/21 01/07/21 01/07/21 09:15 09:20 09:30 Temperature Pulse Rate 73 71 70 Pulse Rate [ From Monitor] Respiratory 24 24 Rate Blood Pressure 84/47 84/47 85/47 O2 Sat by Pulse 94 95 94 Oximetry O2 Sat by Pulse Oximetry [ Anterior Bilateral Throughout] 01/07/21 01/07/21 01/07/21 09:45 10:00 10:05 Temperature 98.1 F Pulse Rate 69 68 68 Pulse Rate [ From Monitor] Respiratory 24 24 24 Rate Blood Pressure 89/51 89/51 89/51 O2 Sat by Pulse 95 95 96 Oximetry O2 Sat by Pulse Oximetry [ Anterior Bilateral Throughout] 01/07/21 01/07/21 01/07/21 10:15 10:20 10:30 Temperature 98.1 F Pulse Rate 78 77 80 Pulse Rate [ From Monitor] Respiratory 22 25 H 25 H Rate Blood Pressure 89/51 105/70 106/59 O2 Sat by Pulse 95 96 98 Oximetry O2 Sat by Pulse Oximetry [ Anterior Bilateral Throughout] 01/07/21 01/07/21 01/07/21 10:45 10:50 11:01 Temperature 98.4 F Pulse Rate 80 87 80 Pulse Rate [ From Monitor] Respiratory 22 26 H 17 Rate Blood Pressure 115/68 115/68 116/61 O2 Sat by Pulse 90 97 94 Oximetry O2 Sat by Pulse Oximetry [ Anterior Bilateral Throughout] 01/07/21 01/07/21 01/07/21 11:15 11:20 11:25 Temperature 97.8 F 97.8 F Pulse Rate 75 73 74 Pulse Rate [ From Monitor] Respiratory 24 24 22 Rate Blood Pressure 109/65 109/65 109/65 O2 Sat by Pulse 93 95 Oximetry O2 Sat by Pulse 95 Oximetry [ Anterior Bilateral Throughout] 01/07/21 01/07/21 01/07/21 11:30 11:31 11:44 Temperature Pulse Rate 73 81 85 Pulse Rate [ From Monitor] Respiratory 25 H Rate Blood Pressure 138/102 108/69 138/102 O2 Sat by Pulse 94 97 Oximetry O2 Sat by Pulse Oximetry [ Anterior Bilateral Throughout] 01/07/21 01/07/21 01/07/21 11:45 11:50 12:00 Temperature 97.9 F 97.9 F Pulse Rate 74 70 70 Pulse Rate [ 68 From Monitor] Respiratory 24 24 24 Rate Blood Pressure 138/102 103/67 103/59 O2 Sat by Pulse 97 96 97 Oximetry O2 Sat by Pulse Oximetry [ Anterior Bilateral Throughout] 01/07/21 01/07/21 01/07/21 12:15 12:20 12:30 Temperature 97.8 F Pulse Rate 68 68 67 Pulse Rate [ From Monitor] Respiratory 24 24 24 Rate Blood Pressure 102/58 102/58 98/58 O2 Sat by Pulse 95 97 Oximetry O2 Sat by Pulse Oximetry [ Anterior Bilateral Throughout] 01/07/21 01/07/21 01/07/21 12:45 13:00 13:15 Temperature Pulse Rate 66 66 67 Pulse Rate [ From Monitor] Respiratory 24 24 24 Rate Blood Pressure 104/58 105/58 97/59 O2 Sat by Pulse 95 100 98 Oximetry O2 Sat by Pulse Oximetry [ Anterior Bilateral Throughout] 01/07/21 01/07/21 01/07/21 13:30 13:45 14:00 Temperature Pulse Rate 67 66 64 Pulse Rate [ From Monitor] Respiratory 24 24 24 Rate Blood Pressure 100/52 98/56 110/61 O2 Sat by Pulse 95 96 95 Oximetry O2 Sat by Pulse Oximetry [ Anterior Bilateral Throughout] 01/07/21 01/07/21 01/07/21 14:12 14:15 14:20 Temperature 97.8 F Pulse Rate 65 65 68 Pulse Rate [ From Monitor] Respiratory 24 24 Rate Blood Pressure 107/62 108/60 108/60 O2 Sat by Pulse 99 Oximetry O2 Sat by Pulse Oximetry [ Anterior Bilateral Throughout] 01/07/21 01/07/21 01/07/21 14:30 14:45 15:01 Temperature Pulse Rate 64 68 71 Pulse Rate [ From Monitor] Respiratory 24 24 24 Rate Blood Pressure 108/62 104/59 100/52 O2 Sat by Pulse 94 95 95 Oximetry O2 Sat by Pulse Oximetry [ Anterior Bilateral Throughout] 01/07/21 01/07/21 01/07/21 15:15 15:25 15:31 Temperature Pulse Rate 76 82 77 Pulse Rate [ From Monitor] Respiratory 24 16 Rate Blood Pressure 100/52 108/65 107/62 O2 Sat by Pulse 97 96 95 Oximetry O2 Sat by Pulse Oximetry [ Anterior Bilateral Throughout] 01/07/21 01/07/21 01/07/21 15:45 16:00 16:01 Temperature 98.2 F Pulse Rate 75 66 81 Pulse Rate [ 66 From Monitor] Respiratory 16 26 H 18 Rate Blood Pressure 132/71 136/79 O2 Sat by Pulse 99 96 98 Oximetry O2 Sat by Pulse Oximetry [ Anterior Bilateral Throughout] 01/07/21 01/07/21 01/07/21 16:15 16:30 16:45 Temperature Pulse Rate 84 76 88 Pulse Rate [ From Monitor] Respiratory 25 H 24 21 Rate Blood Pressure 136/79 108/65 108/65 O2 Sat by Pulse 97 94 97 Oximetry O2 Sat by Pulse Oximetry [ Anterior Bilateral Throughout] 01/07/21 01/07/21 01/07/21 17:01 17:15 17:30 Temperature Pulse Rate 95 H 84 77 Pulse Rate [ From Monitor] Respiratory 12 19 24 Rate Blood Pressure 165/93 165/93 106/58 O2 Sat by Pulse 100 99 Oximetry O2 Sat by Pulse Oximetry [ Anterior Bilateral Throughout] 01/07/21 01/07/21 01/07/21 17:45 18:00 18:15 Temperature Pulse Rate 80 79 76 Pulse Rate [ From Monitor] Respiratory 24 21 24 Rate Blood Pressure 118/66 124/71 120/62 O2 Sat by Pulse 96 98 Oximetry O2 Sat by Pulse Oximetry [ Anterior Bilateral Throughout] 01/07/21 01/07/21 01/07/21 18:30 18:45 19:00 Temperature Pulse Rate 72 70 72 Pulse Rate [ From Monitor] Respiratory 24 24 24 Rate Blood Pressure 101/51 101/51 110/59 O2 Sat by Pulse 98 100 98 Oximetry O2 Sat by Pulse Oximetry [ Anterior Bilateral Throughout] 01/07/21 01/07/21 01/07/21 19:06 19:15 19:30 Temperature Pulse Rate 72 72 76 Pulse Rate [ From Monitor] Respiratory 18 24 24 Rate Blood Pressure 110/59 120/65 O2 Sat by Pulse 99 98 92 Oximetry O2 Sat by Pulse Oximetry [ Anterior Bilateral Throughout] 01/07/21 01/07/21 01/07/21 19:38 19:45 19:46 Temperature 99.6 F Pulse Rate 73 84 Pulse Rate [ From Monitor] Respiratory 16 Rate Blood Pressure 120/65 120/65 O2 Sat by Pulse 99 100 Oximetry O2 Sat by Pulse Oximetry [ Anterior Bilateral Throughout] 01/07/21 20:01 Temperature Pulse Rate 90 Pulse Rate [ From Monitor] Respiratory 26 H Rate Blood Pressure 145/106 O2 Sat by Pulse 95 Oximetry O2 Sat by Pulse Oximetry [ Anterior Bilateral Throughout] - Lab 01/07/21 16:00 01/07/21 03:10 Most recent lab results ABG pH 7.363 (7.320-7.450) 01/07/21 14:05 ABG pCO2 37.9 mm Hg 01/05/21 03:50 ABG pO2 136.8 mm Hg (80.0-90.0) H 01/05/21 03:50 ABG HCO3 22.4 mmol/L (20.0-26.0) 01/05/21 03:50 ABG O2 Saturation 96.6 (0-100) 01/07/21 14:05 Calcium 8.5 mg/dL (8.4-10.2) 01/07/21 03:10 Phosphorus 4.70 mg/dL (2.5-4.5) H D 01/07/21 03:10 Magnesium 2.20 mg/dL (1.7-2.3) 01/07/21 03:10 Urine Creatinine 78.1 mg/dL (0.1-20.0) H 12/23/20 12:15 Urine Sodium 13 mmol/L 12/23/20 12:15 Medications & Allergies - Medications Allergies/Adverse Reactions: Allergies Iodinated Contrast Media Adverse Reaction (Verified 09/04/18 14:20) Unknown Home Medications: Home Medications Medication Instructions Recorded Confirmed Last Taken Type Aspirin 81 mg PO DAILY #30 tab.chew 09/08/18 01/04/21 03/31/20 09:28 Rx AtorvaSTATin [Lipitor] 80 mg PO QHS tablet 05/08/19 01/04/21 03/28/20 Rx Albuterol Sulfate [Proventil Hfa] 13.4 gm IH Q6H #1 hfa.aer.ad 04/01/20 01/04/21 Unknown Rx Clopidogrel [Plavix] 75 mg PO DAILY #30 tablet 04/01/20 01/04/21 Unknown Rx Gabapentin 300 mg PO BID@0700,1800 30 Days 04/01/20 01/04/21 Unknown Rx capsule Gabapentin 600 mg PO QHS 30 Days capsule 04/01/20 01/04/21 Unknown Rx Metoprolol [Lopressor TAB] 25 mg PO BID #60 tablet 04/01/20 01/04/21 Unknown Rx [place]-[employer]/Dha/Epa/Fish Oil [[place] [employer] 1 each PO BID #60 capsule 04/01/20 01/04/21 U nknown Rx 500 Softgel] Tiotropium Tappen [Spiriva] 2 puff IH DAILY #30 cap.w.dev 04/01/20 01/04/21 Unknown Rx Ubidecarenone [Co Q-10] 10 mg PO BID #60 tab 04/01/20 01/04/21 03/29/20 Rx cilostazoL [Pletal] 50 mg PO BID 30 Days tablet 04/01/20 01/04/21 Unknown Rx oxyCODONE /ACETAMINOPHEN [Percocet 2 tab PO Q6H PRN tablet 04/01/20 01/04/21 Unknown Rx 5/325 mg] Phosphorus #1 [K-Phos Neutral] 250 mg PO QID 2 Days #8 tablet 09/14/20 01/04/21 Unknown Rx Active Medications: Generic Name Dose Route Start Last Admin Trade Name Alejandroq PRN Reason Stop Dose Admin Acetaminophen 650 mg 12/21/20 11:51 12/25/20 20:35 Acetaminophen 650 Mg Rect Supp MS 650 mg Q4H PRN Administration TEMP >/=100.4 Lipase/Protease/Amylase 1 each 01/07/21 08:44 Lipase 10,500/Protease 25,000/Amylase 43,750 (Units) Dr Cap FEEDTUBE PRN PRN For Clogged Feeding Tube Bisacodyl 10 mg 12/30/20 11:00 01/07/21 09:37 Bisacodyl 10 Mg Rect Supp MS 10 mg QDAY ASCENCION Administration Dextrose 50 ml 12/24/20 10:49 Dextrose 50% In Water (25gm) 50 Ml Syringe IV Q30MIN PRN Hypoglycemia Protocol Famotidine 20 mg 12/26/20 10:00 01/07/21 09:37 Famotidine 20 Mg/2 Ml Inj IV 20 mg DAILY ASCENCION Administration Heparin Sodium (Porcine) 5,000 unit 01/06/21 14:00 01/07/21 14:44 Heparin 5,000 Unit/1 Ml Vial SUB-Q 5,000 unit Q8HR ASCENCION Administration Hydromorphone HCl 1 mg 01/06/21 15:58 Hydromorphone 1 Mg/1 Ml Inj IV Q4H PRN Pain , Severe (7-10) Hydrophilic Ointment 1 applic 12/20/20 21:58 Lip Therapy Vaseline TP Q2HR PRN Dry Lips Fentanyl Citrate 2,000 mcg in 100 mls @ 6.01 mls/hr 12/20/20 22:00 01/07/21 19:13 Fentanyl Drip Premix IV 4 mcg/kg/hr TITR ASECNCION 24.04 mls/hr Administration Protocol 1 MCG/KG/HR Propofol 1,000 mg in 100 mls @ 3.606 mls/hr 12/20/20 22:00 01/07/21 17:00 Diprivan 10 Mg/Ml IV 25 mcg/kg/min TITR ASCENCION 18.03 mls/hr Administration Protocol 5 MCG/KG/MIN NORepinephrine/NS 8 MG-250 ML 8 mg in 250 mls @ 3.75 mls/hr 12/21/20 09:00 01/02/21 06:15 Norepinephrine/Ns 8 Mg-250 Ml (Double Conc) IV 0 mcg/min TITRATE ASCENCION 0 mls/hr Titration Protocol 2 MCG/MIN Vasopressin 20 unit/ Sodium 101 mls @ 9.09 mls/hr 12/24/20 09:00 01/02/21 09:49 Chloride IV 0 units/min TITR ASCENCION 0 mls/hr Titration Protocol 0.03 UNITS/MIN Sodium Chloride 100 mls @ 999 mls/hr 01/03/21 10:21 Nacl 0.9% IV MARILU PRN Hypotension Dexmedetomidine HCl 400 mcg/ 104 mls @ 7.322 mls/hr 01/04/21 11:00 01/07/21 18:10 Sodium Chloride IV 0.5 mcg/kg/hr TITRATE ASCENCION 18.304 mls/hr Administration Protocol 0.2 MCG/KG/HR Sodium Chloride 500 mls @ 0 mls/hr 01/07/21 07:43 01/07/21 12:29 Nacl 0.9% 500 Ml IV 01/07/21 23:59 0 mls/hr ONCE NR Infusion As Directed Amino Acids/Electrolytes/Dextrose 1,999.92 mls @ 83.33 mls/hr 01/07/21 20:00 01/07/21 19:55 Tpn Adult IV 01/08/21 19:59 83.33 mls/hr DAILY@1999 [facility] Administration Protocol Insulin Human Regular 0 units 12/28/20 00:00 01/07/21 18:15 Insulin Regular, Human 100 Units/1 Ml SUB-Q Not Given Q6H [facility] Protocol Multi-Ingred Cream/Lotion/Oil/Oint 1 applic 12/20/20 21:58 01/03/21 01:13 Mineral Oil/Petrolatum, White Ophth Oint 3.5 Gm OU 1 applic Q4HR PRN Administration Dry Eye(s) Simple Syrup 15 ml 01/07/21 08:44 Simple Syrup 15 Ml FEEDTUBE PRN PRN Hypoglycemia Simple Syrup 30 ml 01/07/21 08:44 Simple Syrup 15 Ml FEEDTUBE PRN PRN Hypoglycemia Sodium Bicarbonate 325 mg 01/07/21 08:44 Sodium Bicarbonate 325 Mg Tab FEEDTUBE PRN PRN For Clogged Feeding Tube Sodium Chloride 10 ml 12/20/20 22:00 01/07/21 09:40 Sodium Chloride 0.9% 10 Ml Flush Syringe IV 10 ml BID ASCENCOIN Administration Sodium Chloride 10 ml 12/20/20 16:42 Sodium Chloride 0.9% 10 Ml Flush Syringe IV PRN PRN LINE FLUSH
[2021-01-08] MEDS: fentaNYL DRIP Premix 2,000 MCG/100 ML BAG IV SCH ×6 (03:34→21:08)
[2021-01-08 04:38] LABS: Hematocrit 22.7 % (35.5-45.6); Hemoglobin 7.6 gm/dl (11.8-15.2); Mean Corpuscular HGB Conc 33 % (32-34); Mean Corpuscular Volume 87 fl (84-94); Platelet Count 242 K/mm3 (140-440); Red Blood Count 2.62 M/mm3 (3.65-5.03); Red Cell Distribution Width 16.7 % (13.2-15.2)
[2021-01-08 04:52] LABS: Calcium 8.6 mg/dL (8.4-10.2)
[2021-01-08] MEDS: HEPARIN 5,000 UNIT/1 ML VIAL SUB-Q SCH ×3 (05:26→21:36)
[2021-01-08 06:12] LABS: Band Neutrophils # (Manual) 0.2 K/mm3; Total Cells Counted 100
[2021-01-08 06:13] LABS: Anisocytosis 1+; Platelet Estimate Consistent w Auto
[2021-01-08] MEDS: INSULIN REGULAR, HUMAN 100 UNITS/1 ML SUB-Q SCH ×3 (07:39→17:25)
[2021-01-08] MEDS: FAMOTIDINE 20 MG/2 ML INJ IV SCH (09:18)
--- NOTE | 2021-01-08 11:27 | Progress Note ---
Assessment and Plan 60 y/o male with abdominal catastrophe, s/p ex-lap with open abdomen, ventilated for pain control and support. 01/08/21: Appropriate response this time to transfusion. Spoke with nursing about the use of PRN dilaudid so that we can wean sedation. Still feel patient will ultimately need trach but will continue to try to wean. Down to 35% now. Will drop PEEP likely tomorrow. Follow up on residuals in the morning, assess for the ability to tube feed. 01/07/21: Transfuse again. Coags ordered, as well as heme occult. Continue curr ent sedation. Follow up post transfusion H/H. Nothing out of NG to suggest bleeding. Nothing bright red from bottom. Guarded prognosis. made changes to vent. Will order repeat gas this afternoon. 01/06/21: Will transfuse today. Will speak with surgery about residuals to see if they want to try trickle feeds. Will stop PRN fent and change to Dilaudid given renal function, maybe be longer acting. Able to wean once more sedated. Most likely patient is going to need a trach for further weaning and stucco mason placement. Will discuss with surgery, not ready for this right now. 01/05/21: HD per renal. Continue precedex to help with weaning off sedation. Tolerates PRN pushes of fentanyl. Will repeat ABG and CXR post HD and then attempt to wean FiO2 back down. Prognosis remains guarded. May end up with trach. Continue to try to wean. 01/04/21: HD per renal. Will try PRecedex therapy to see if we can wean off some sedation. Told RT ok to start weaning PEEP. spoke with surgery. Will clamp NG tube and check residuals, if low, will start tube feeding. Guarded prognosis. NO steroids for anything. 01/03/21: Really need volume off. Vasopressors ordered and can be used to help with volume removal as patient has anasarca. Not sure that we would be able to successfully extubate if volume is not removed. Not ready for SBT as he is still requiring a decent amount of support. Would like PEEP at 6 and FiO2 at 40-45% or lower. Will speak with renal about HD again today for volume removal with pressor support to help with this. Continue TPN until gut ready for use. Absolutely no steroids. Guarded prognosis. Patient may need PRBC's, this could be transfused with HD, may help with volume removal. 01/02/21: Now, will start to wean sedation. Continue to wean FiO2 but do not wean PEEP until FiO2 is down to about 40%. Spoke with renal who will dialyze patient today. electrolyte imbalances will be managed by them as well. Abx therapy per ID. Will continue to follow. Guarded prognosis. 12/30/20: No steroids given new anastomosis. Discussed with surgery. Continue sedation and pain control until abdomen is closed. Appears to have metabolic acidosis and some volume overload so feel he would benefit from HD today, will ask renal about this. Electrolyte imbalances should be managed by HD. Guarded to poor prognosis. 12/29/20: Continue all supportive measures. Maintain adequate sedation and pain control given open abdomen. HD per renal, catheter in place. Wean Pressors for MAPS >65. Prognosis still remains guarded to poor. 12/27/20: Agree with bicarb drip. Will go ahead and place vascath today. Will obtain consent and place, likely in groin. Back on pressors unfortunately but much lower doses. Got 3 doses of steroids on yesterday. May have helped. Will discuss with pharmacy and determine the risk benefit ration of continuing. Continue abx therapy as per ID. overall prognosis is very very guarded to poor. 12/26/20: Needs more hydration. Appreciate renal help but will bolus several liters today as I feel the patient is very volume deplete and with persistent fever we have insensible losses as well. Continue TPN. OR today. Wean pressors for MAPs greater than 65. Follow up triglyceride level. Some hypotension is likely related to amount of sedation required to maintain rass of -4. If third agent is needed, could use precedex, ativan etc..Guarded prognosis. 12/25/20: Down to 14 on Levo now. Fluid appears to have helped. Renal following so will defer further bolus types to them but would recommend more fluid. Continue sedation at current level. TPN for nutrition. Plans for return to OR on Saturday. Continue all supportive measures. 12/24/20: Adequate sedation to maintain RASS of -4. BP support as needed with pressors. Will give more fluid today. Renal function improving. Agree with D5W but Na will be corrected in TPN as well. TPN per nutrition. Supportive care. 1. Adequate sedation to RASS of -4 2 Support BP with meds as needed 3. Aggressive hydration 4. Follow up surgery recs. cct 31 minutes. Subjective Date of service: 01/08/21 Principal diagnosis: SBO and necrosis of large part of small intestine Interval history: No acute events. Down to diprovan 20 and now will follow commands. Repeat ABG's much better. Objective Vital Signs - 12hr 01/07/21 01/07/21 01/07/21 23:30 23:42 23:45 Temperature 99.4 F Pulse Rate 96 H 85 Respiratory 26 H 24 Rate Blood Pressure 151/82 153/93 O2 Sat by Pulse 94 91 Oximetry 01/07/21 01/07/21 01/07/21 23:50 23:51 23:52 Temperature 98.2 F Pulse Rate 83 82 Respiratory 24 Rate Blood Pressure 112/70 153/93 O2 Sat by Pulse 90 90 Oximetry 01/08/21 01/08/21 01/08/21 00:00 00:15 00:30 Temperature Pulse Rate 78 79 75 Respiratory 24 24 24 Rate Blood Pressure 116/68 116/68 103/62 O2 Sat by Pulse 96 95 Oximetry 01/08/21 01/08/21 01/08/21 00:45 01:00 01:16 Temperature Pulse Rate 71 70 68 Respiratory 24 25 H 24 Rate Blood Pressure 103/62 103/62 O2 Sat by Pulse 97 97 98 Oximetry 01/08/21 01/08/21 01/08/21 01:30 01:45 02:00 Temperature Pulse Rate 68 67 66 Respiratory 24 24 11 L Rate Blood Pressure 109/65 109/65 114/64 O2 Sat by Pulse 97 98 97 Oximetry 01/08/21 01/08/21 01/08/21 02:15 02:30 02:45 Temperature Pulse Rate 66 66 66 Respiratory 24 24 15 Rate Blood Pressure 114/64 115/65 115/65 O2 Sat by Pulse 98 97 98 Oximetry 01/08/21 01/08/21 01/08/21 03:00 03:15 03:19 Temperature 97.9 F Pulse Rate 65 66 Respiratory 6 L 6 L Rate Blood Pressure 111/62 111/62 O2 Sat by Pulse 97 98 Oximetry 01/08/21 01/08/21 01/08/21 03:30 03:31 03:44 Temperature Pulse Rate 66 75 67 Respiratory 25 H 21 Rate Blood Pressure 109/73 109/73 O2 Sat by Pulse 99 97 98 Oximetry 01/08/21 01/08/21 01/08/21 03:45 04:00 04:15 Temperature Pulse Rate 67 66 73 Respiratory 24 24 24 Rate Blood Pressure 111/62 111/63 111/63 O2 Sat by Pulse 98 94 98 Oximetry 01/08/21 01/08/21 01/08/21 04:30 04:45 05:00 Temperature Pulse Rate 67 65 65 Respiratory 24 24 23 Rate Blood Pressure 96/58 96/58 110/61 O2 Sat by Pulse 91 96 96 Oximetry 01/08/21 01/08/21 01/08/21 05:15 05:30 05:45 Temperature Pulse Rate 65 67 67 Respiratory 24 20 24 Rate Blood Pressure 110/61 108/62 108/62 O2 Sat by Pulse 97 97 97 Oximetry 01/08/21 01/08/21 01/08/21 06:00 06:05 06:15 Temperature Pulse Rate 67 69 Respiratory 24 25 H 24 Rate Blood Pressure 98/58 98/58 O2 Sat by Pulse 98 99 97 Oximetry 01/08/21 01/08/21 01/08/21 06:31 06:45 07:00 Temperature Pulse Rate 80 78 68 Respiratory 22 24 24 Rate Blood Pressure 108/78 98/58 104/63 O2 Sat by Pulse 97 97 97 Oximetry 01/08/21 01/08/21 01/08/21 07:15 07:30 07:45 Temperature Pulse Rate 67 66 64 Respiratory 24 24 24 Rate Blood Pressure 108/78 106/66 104/63 O2 Sat by Pulse 98 97 97 Oximetry 01/08/21 01/08/21 01/08/21 08:00 08:01 08:15 Temperature 98.1 F Pulse Rate 80 81 91 H Respiratory 16 16 25 H Rate Blood Pressure 132/91 106/66 O2 Sat by Pulse 96 96 96 Oximetry 01/08/21 01/08/21 01/08/21 08:31 08:45 09:01 Temperature Pulse Rate 91 H 92 H 86 Respiratory 19 22 15 Rate Blood Pressure 152/100 152/100 147/85 O2 Sat by Pulse 96 95 95 Oximetry 01/08/21 01/08/21 01/08/21 09:15 09:31 09:45 Temperature Pulse Rate 84 80 73 Respiratory 17 24 24 Rate Blood Pressure 147/85 120/72 120/72 O2 Sat by Pulse 95 95 98 Oximetry 01/08/21 01/08/21 01/08/21 10:00 10:15 10:30 Temperature Pulse Rate 64 65 64 Respiratory 24 24 24 Rate Blood Pressure 117/47 117/47 107/56 O2 Sat by Pulse 97 98 97 Oximetry 01/08/21 01/08/21 10:45 11:00 Temperature Pulse Rate 65 65 Respiratory 24 24 Rate Blood Pressure 117/47 109/61 O2 Sat by Pulse 98 99 Oximetry Constitutional: comatose (secondary to sedation.), other (critically ill on ventilator) Eyes: non-icteric ENT: oropharynx moist Neck: supple Effort: normal Ascultation: Bilateral: other (coarse BS bilaterally) Cardiovascular: other (tachy, RR; no mrg) Gastrointestinal: other (abdomen open) Integumentary: normal Extremities: no cyanosis, no edema, pink and warm Neurologic: other (sedated) CBC and BMP: 01/08/21 Unknown 01/08/21 Unknown ABG, PT/INR, D-dimer: ABG ABG pH 7.341 (7.320-7.450) 01/08/21 03:22 POC ABG pCO2 41.0 mmHg (32.0-48.0) 01/08/21 03:22 ABG pCO2 37.9 mm Hg 01/05/21 03:50 POC ABG pO2 71.3 mmHg (83-108) L 01/08/21 03:22 ABG pO2 136.8 mm Hg (80.0-90.0) H 01/05/21 03:50 POC ABG HCO3 21.7 01/08/21 03:22 ABG O2 Saturation 93.8 (0-100) 01/08/21 03:22 PT/INR, D-dimer PT 14.5 Sec. (12.2-14.9) 01/07/21 16:00 INR 1.08 (0.87-1.13) 01/07/21 16:00 Abnormal lab findings: Abnormal Labs 12/20/20 12/20/20 12/20/20 13:58 13:58 13:58 WBC 41.1 H* RBC 5.59 H Hgb 16.2 H Hct 47.7 H MCV MCHC RDW 15.5 H Plt Count 486 H Seg Neuts % (Manual) Lymphocytes % (Manual) Seg Neutrophils # Man Lymphocytes # (Manual) Monocytes # (Manual) APTT ABG pH POC ABG pCO2 POC ABG pO2 ABG pO2 ABG Base Excess ABG Hemoglobin ABG Oxyhemoglobin ABG Sodium ABG Potassium ABG Chloride ABG Glucose Carboxyhemoglobin Sodium 130 L Potassium Chloride 80.7 L Carbon Dioxide BUN 37 H Creatinine Glucose 101 H POC Glucose Lactic Acid 3.20 H* Calcium Ionized Calcium Phosphorus Magnesium AST Alkaline Phosphatase 142 H Total Protein 6.2 L Albumin 2.2 L Triglycerides Arterial Blood Glucose Arterial Blood Ionized Calcium Urine Creatinine Crossmatch 12/20/20 12/20/20 12/20/20 13:58 20:35 21:30 WBC RBC Hgb Hct MCV MCHC RDW Plt Count Seg Neuts % (Manual) Lymphocytes % (Manual) Seg Neutrophils # Man Lymphocytes # (Manual) Monocytes # (Manual) APTT 49.4 H ABG pH 7.313 L POC ABG pCO2 POC ABG pO2 ABG pO2 104.4 H ABG Base Excess ABG Hemoglobin ABG Oxyhemoglobin ABG Sodium ABG Potassium ABG Chloride ABG Glucose Carboxyhemoglobin Sodium Potassium Chloride Carbon Dioxide BUN Creatinine Glucose POC Glucose 122 H Lactic Acid Calcium Ionized Calcium Phosphorus Magnesium AST Alkaline Phosphatase Total Protein Albumin Triglycerides Arterial Blood Glucose Arterial Blood Ionized Calcium Urine Creatinine Crossmatch 12/21/20 12/21/20 12/21/20 03:06 08:14 08:14 WBC 23.9 H RBC Hgb Hct MCV MCHC RDW 15.7 H Plt Count Seg Neuts % (Manual) 91.0 H Lymphocytes % (Manual) 3.0 L Seg Neutrophils # Man 21.7 H Lymphocytes # (Manual) 0.7 L Monocytes # (Manual) 1.4 H APTT ABG pH 7.464 H POC ABG pCO2 POC ABG pO2 202.9 H ABG pO2 ABG Base Excess ABG Hemoglobin ABG Oxyhemoglobin ABG Sodium 133.7 L ABG Potassium ABG Chloride ABG Glucose 122 H Carboxyhemoglobin Sodium Potassium Chloride Carbon Dioxide BUN 46 H Creatinine Glucose 103 H POC Glucose Lactic Acid Calcium 6.6 L D Ionized Calcium Phosphorus Magnesium AST Alkaline Phosphatase Total Protein 5.4 L Albumin 2.3 L Triglycerides Arterial Blood Glucose 122 H Arterial Blood Ionized Calcium 3.5 L Urine Creatinine Crossmatch 12/21/20 12/21/20 12/22/20 17:18 21:28 04:45 WBC 22.9 H RBC Hgb Hct MCV MCHC RDW 15.7 H Plt Count Seg Neuts % (Manual) Lymphocytes % (Manual) Seg Neutrophils # Man Lymphocytes # (Manual) Monocytes # (Manual) APTT ABG pH POC ABG pCO2 POC ABG pO2 ABG pO2 ABG Base Excess ABG Hemoglobin ABG Oxyhemoglobin ABG Sodium ABG Potassium ABG Chloride ABG Glucose Carboxyhemoglobin Sodium Potassium Chloride Carbon Dioxide BUN Creatinine Glucose POC Glucose 108 H Lactic Acid Calcium Ionized Calcium 4.1 L Phosphorus Magnesium AST Alkaline Phosphatase Total Protein Albumin Triglycerides Arterial Blood Glucose Arterial Blood Ionized Calcium Urine Creatinine Crossmatch 12/22/20 12/22/20 12/22/20 04:45 05:00 11:38 WBC RBC Hgb Hct MCV MCHC RDW Plt Count Seg Neuts % (Manual) Lymphocytes % (Manual) Seg Neutrophils # Man Lymphocytes # (Manual) Monocytes # (Manual) APTT ABG pH 7.462 H POC ABG pCO2 POC ABG pO2 ABG pO2 ABG Base Excess ABG Hemoglobin ABG Oxyhemoglobin ABG Sodium ABG Potassium ABG Chloride ABG Glucose 118 H Carboxyhemoglobin Sodium 146 H Potassium Chloride Carbon Dioxide BUN 45 H Creatinine Glucose 116 H POC Glucose 115 H Lactic Acid Calcium 6.9 L Ionized Calcium Phosphorus Magnesium AST Alkaline Phosphatase Total Protein Albumin Triglycerides Arterial Blood Glucose 118 H Arterial Blood Ionized Calcium 3.8 L Urine Creatinine Crossmatch 12/22/20 12/23/20 12/23/20 23:26 04:43 04:45 WBC 22.2 H RBC Hgb Hct MCV MCHC RDW 16.1 H Plt Count Seg Neuts % (Manual) Lymphocytes % (Manual) Seg Neutrophils # Man Lymphocytes # (Manual) Monocytes # (Manual) APTT ABG pH POC ABG pCO2 POC ABG pO2 ABG pO2 ABG Base Excess ABG Hemoglobin ABG Oxyhemoglobin ABG Sodium 147.4 H ABG Potassium ABG Chloride 112.0 H ABG Glucose 130 H Carboxyhemoglobin 0.4 L Sodium Potassium Chloride Carbon Dioxide BUN Creatinine Glucose POC Glucose 110 H Lactic Acid Calcium Ionized Calcium Phosphorus Magnesium AST Alkaline Phosphatase Total Protein Albumin Triglycerides Arterial Blood Glucose 130 H Arterial Blood Ionized Calcium 3.8 L Urine Creatinine Crossmatch 12/23/20 12/23/20 12/23/20 04:45 05:17 11:22 WBC RBC Hgb Hct MCV MCHC RDW Plt Count Seg Neuts % (Manual) Lymphocytes % (Manual) Seg Neutrophils # Man Lymphocytes # (Manual) Monocytes # (Manual) APTT ABG pH POC ABG pCO2 POC ABG pO2 ABG pO2 ABG Base Excess ABG Hemoglobin ABG Oxyhemoglobin ABG Sodium ABG Potassium ABG Chloride ABG Glucose Carboxyhemoglobin Sodium 154 H D Potassium Chloride 110.9 H Carbon Dioxide BUN 54 H Creatinine 1.8 H Glucose 115 H POC Glucose 116 H 130 H Lactic Acid Calcium 7.0 L Ionized Calcium Phosphorus Magnesium AST Alkaline Phosphatase Total Protein Albumin Triglycerides Arterial Blood Glucose Arterial Blood Ionized Calcium Urine Creatinine Crossmatch 12/23/20 12/23/20 12/23/20 12:15 12:15 23:15 WBC RBC Hgb Hct MCV MCHC RDW Plt Count Seg Neuts % (Manual) Lymphocytes % (Manual) Seg Neutrophils # Man Lymphocytes # (Manual) Monocytes # (Manual) APTT ABG pH POC ABG pCO2 POC ABG pO2 ABG pO2 ABG Base Excess ABG Hemoglobin ABG Oxyhemoglobin ABG Sodium ABG Potassium ABG Chloride ABG Glucose Carboxyhemoglobin Sodium 154 H Potassium Chloride Carbon Dioxide BUN Creatinine 1.5 H Glucose POC Glucose 132 H Lactic Acid Calcium Ionized Calcium Phosphorus Magnesium AST Alkaline Phosphatase Total Protein Albumin Triglycerides Arterial Blood Glucose Arterial Blood Ionized Calcium Urine Creatinine 78.1 H Crossmatch 12/24/20 12/24/20 12/24/20 04:19 04:30 04:30 WBC 18.3 H RBC Hgb Hct MCV MCHC RDW 16.5 H Plt Count Seg Neuts % (Manual) Lymphocytes % (Manual) Seg Neutrophils # Man Lymphocytes # (Manual) Monocytes # (Manual) APTT ABG pH POC ABG pCO2 POC ABG pO2 ABG pO2 ABG Base Excess ABG Hemoglobin ABG Oxyhemoglobin ABG Sodium 149.7 H ABG Potassium ABG Chloride 116.0 H ABG Glucose 180 H Carboxyhemoglobin Sodium 155 H Potassium Chloride 116.1 H Carbon Dioxide BUN 52 H Creatinine 1.5 H Glucose 175 H POC Glucose Lactic Acid Calcium 6.8 L Ionized Calcium Phosphorus Magnesium 3.00 H AST Alkaline Phosphatase Total Protein 5.7 L Albumin 1.8 L Triglycerides Arterial Blood Glucose 180 H Arterial Blood Ionized Calcium 3.7 L Urine Creatinine Crossmatch 0612/24/20 12/24/20 05:24 11:21 18:05 WBC RBC Hgb Hct MCV MCHC RDW Plt Count Seg Neuts % (Manual) Lymphocytes % (Manual) Seg Neutrophils # Man Lymphocytes # (Manual) Monocytes # (Manual) APTT ABG pH POC ABG pCO2 POC ABG pO2 ABG pO2 ABG Base Excess ABG Hemoglobin ABG Oxyhemoglobin ABG Sodium ABG Potassium ABG Chloride ABG Glucose Carboxyhemoglobin Sodium Potassium Chloride Carbon Dioxide BUN Creatinine Glucose POC Glucose 153 H 154 H 133 H Lactic Acid Calcium Ionized Calcium Phosphorus Magnesium AST Alkaline Phosphatase Total Protein Albumin Triglycerides Arterial Blood Glucose Arterial Blood Ionized Calcium Urine Creatinine Crossmatch 12/25/20 12/25/20 12/25/20 04:00 07:00 07:00 WBC 17.6 H RBC Hgb Hct MCV MCHC 31 L RDW 16.0 H Plt Count Seg Neuts % (Manual) Lymphocytes % (Manual) Seg Neutrophils # Man Lymphocytes # (Manual) Monocytes # (Manual) APTT ABG pH POC ABG pCO2 POC ABG pO2 ABG pO2 ABG Base Excess ABG Hemoglobin ABG Oxyhemoglobin ABG Sodium 152.5 H ABG Potassium ABG Chloride 119.0 H ABG Glucose 136 H Carboxyhemoglobin Sodium Potassium Chloride Carbon Dioxide BUN Creatinine Glucose POC Glucose Lactic Acid Calcium Ionized Calcium Phosphorus Magnesium 2.70 H AST Alkaline Phosphatase Total Protein Albumin Triglycerides Arterial Blood Glucose 136 H Arterial Blood Ionized Calcium 3.7 L Urine Creatinine Crossmatch 12/25/20 12/25/20 12/25/20 07:00 11:24 16:32 WBC RBC Hgb Hct MCV MCHC RDW Plt Count Seg Neuts % (Manual) Lymphocytes % (Manual) Seg Neutrophils # Man Lymphocytes # (Manual) Monocytes # (Manual) APTT ABG pH POC ABG pCO2 POC ABG pO2 ABG pO2 ABG Base Excess ABG Hemoglobin ABG Oxyhemoglobin ABG Sodium ABG Potassium ABG Chloride ABG Glucose Carboxyhemoglobin Sodium 156 H Potassium Chloride 118.0 H Carbon Dioxide BUN 44 H Creatinine 1.7 H Glucose 126 H POC Glucose 110 H 126 H Lactic Acid Calcium 6.9 L Ionized Calcium Phosphorus Magnesium AST Alkaline Phosphatase Total Protein Albumin Triglycerides Arterial Blood Glucose Arterial Blood Ionized Calcium Urine Creatinine Crossmatch 12/25/20 12/25/20 12/26/20 18:18 23:23 03:30 WBC RBC Hgb Hct MCV MCHC RDW Plt Count Seg Neuts % (Manual) Lymphocytes % (Manual) Seg Neutrophils # Man Lymphocytes # (Manual) Monocytes # (Manual) APTT ABG pH POC ABG pCO2 POC ABG pO2 ABG pO2 ABG Base Excess ABG Hemoglobin 11.8 L ABG Oxyhemoglobin ABG Sodium ABG Potassium 4.7 H ABG Chloride 114.0 H ABG Glucose 132 H Carboxyhemoglobin Sodium 151 H Potassium Chloride 114.3 H Carbon Dioxide BUN 51 H Creatinine 2.6 H D Glucose 122 H POC Glucose 115 H Lactic Acid Calcium 6.4 L Ionized Calcium Phosphorus Magnesium AST Alkaline Phosphatase Total Protein Albumin Triglycerides Arterial Blood Glucose 132 H Arterial Blood Ionized Calcium 3.6 L Urine Creatinine Crossmatch 12/26/20 12/26/20 12/26/20 04:55 06:01 06:01 WBC 21.6 H RBC Hgb Hct MCV MCHC 31 L RDW 16.5 H Plt Count 136 L Seg Neuts % (Manual) Lymphocytes % (Manual) Seg Neutrophils # Man Lymphocytes # (Manual) Monocytes # (Manual) APTT ABG pH POC ABG pCO2 POC ABG pO2 ABG pO2 ABG Base Excess ABG Hemoglobin ABG Oxyhemoglobin ABG Sodium ABG Potassium ABG Chloride ABG Glucose Carboxyhemoglobin Sodium 173 H* D Potassium 6.1 H* D Chloride 137.0 H Carbon Dioxide BUN 73 H Creatinine 3.8 H Glucose 125 H POC Glucose 112 H Lactic Acid Calcium 6.2 L Ionized Calcium Phosphorus 5.70 H D Magnesium 2.90 H AST Alkaline Phosphatase Total Protein Albumin Triglycerides Arterial Blood Glucose Arterial Blood Ionized Calcium Urine Creatinine Crossmatch 12/26/20 12/26/20 12/26/20 08:33 11:19 22:00 WBC RBC Hgb Hct MCV MCHC RDW Plt Count Seg Neuts % (Manual) Lymphocytes % (Manual) Seg Neutrophils # Man Lymphocytes # (Manual) Monocytes # (Manual) APTT ABG pH POC ABG pCO2 POC ABG pO2 ABG pO2 ABG Base Excess ABG Hemoglobin ABG Oxyhemoglobin ABG Sodium ABG Potassium ABG Chloride ABG Glucose Carboxyhemoglobin Sodium 147 H D Potassium 5.8 H D Chloride 108.8 H Carbon Dioxide 21 L BUN 68 H 68 H Creatinine 3.8 H 4.1 H Glucose 144 H 154 H POC Glucose 144 H Lactic Acid Calcium 6.5 L 5.8 L* Ionized Calcium Phosphorus Magnesium AST 215 H Alkaline Phosphatase Total Protein 4.7 L Albumin 1.5 L Triglycerides Arterial Blood Glucose Arterial Blood Ionized Calcium Urine Creatinine Crossmatch 12/26/20 12/26/20 12/27/20 23:13 Unknown 00:25 WBC RBC Hgb 11.1 L Hct MCV MCHC RDW Plt Count Seg Neuts % (Manual) Lymphocytes % (Manual) Seg Neutrophils # Man Lymphocytes # (Manual) Monocytes # (Manual) APTT ABG pH POC ABG pCO2 POC ABG pO2 ABG pO2 ABG Base Excess ABG Hemoglobin ABG Oxyhemoglobin ABG Sodium ABG Potassium ABG Chloride ABG Glucose Carboxyhemoglobin Sodium Potassium Chloride Carbon Dioxide BUN Creatinine Glucose POC Glucose 163 H Lactic Acid Calcium Ionized Calcium Phosphorus 5.60 H Magnesium AST Alkaline Phosphatase Total Protein Albumin Triglycerides Arterial Blood Glucose Arterial Blood Ionized Calcium Urine Creatinine Crossmatch 12/27/20 12/27/20 12/27/20 02:57 04:15 04:15 WBC 28.5 H RBC Hgb 11.2 L Hct MCV MCHC 31 L RDW 16.5 H Plt Count 130 L Seg Neuts % (Manual) Lymphocytes % (Manual) Seg Neutrophils # Man Lymphocytes # (Manual) Monocytes # (Manual) APTT ABG pH 7.238 L POC ABG pCO2 POC ABG pO2 139.1 H ABG pO2 ABG Base Excess ABG Hemoglobin 11.2 L ABG Oxyhemoglobin ABG Sodium 133.8 L ABG Potassium 5.2 H ABG Chloride ABG Glucose 182 H Carboxyhemoglobin Sodium 136 L Potassium 6.0 H Chloride Carbon Dioxide 18 L BUN 68 H Creatinine 4.1 H Glucose 166 H POC Glucose Lactic Acid Calcium 6.2 L Ionized Calcium Phosphorus 7.30 H D Magnesium AST Alkaline Phosphatase Total Protein Albumin Triglycerides 164 H Arterial Blood Glucose 182 H Arterial Blood Ionized Calcium 3.4 L Urine Creatinine Crossmatch 12/27/20 12/27/20 12/27/20 04:50 10:51 11:17 WBC RBC Hgb Hct MCV MCHC RDW Plt Count Seg Neuts % (Manual) Lymphocytes % (Manual) Seg Neutrophils # Man Lymphocytes # (Manual) Monocytes # (Manual) APTT ABG pH POC ABG pCO2 POC ABG pO2 ABG pO2 ABG Base Excess ABG Hemoglobin ABG Oxyhemoglobin ABG Sodium ABG Potassium ABG Chloride ABG Glucose Carboxyhemoglobin Sodium Potassium Chloride Carbon Dioxide BUN Creatinine Glucose POC Glucose 140 H 113 H 154 H Lactic Acid Calcium Ionized Calcium Phosphorus Magnesium AST Alkaline Phosphatase Total Protein Albumin Triglycerides Arterial Blood Glucose Arterial Blood Ionized Calcium Urine Creatinine Crossmatch 12/27/20 12/27/20 12/27/20 12:40 14:40 23:17 WBC RBC Hgb Hct MCV MCHC RDW Plt Count Seg Neuts % (Manual) Lymphocytes % (Manual) Seg Neutrophils # Man Lymphocytes # (Manual) Monocytes # (Manual) APTT ABG pH POC ABG pCO2 POC ABG pO2 ABG pO2 ABG Base Excess ABG Hemoglobin ABG Oxyhemoglobin ABG Sodium ABG Potassium ABG Chloride ABG Glucose Carboxyhemoglobin Sodium 135 L Potassium Chloride Carbon Dioxide 21 L BUN 62 H Creatinine 3.8 H Glucose 132 H POC Glucose 130 H Lactic Acid Calcium 5.6 L* Ionized Calcium 3.3 L Phosphorus Magnesium AST Alkaline Phosphatase Total Protein Albumin Triglycerides Arterial Blood Glucose Arterial Blood Ionized Calcium Urine Creatinine Crossmatch 12/28/20 12/28/20 12/28/20 05:36 07:08 07:28 WBC 27.2 H RBC 3.50 L Hgb 9.6 L Hct 30.8 L MCV MCHC 31 L RDW 16.1 H Plt Count 111 L Seg Neuts % (Manual) 95.0 H Lymphocytes % (Manual) Seg Neutrophils # Man 25.8 H Lymphocytes # (Manual) 0.0 L Monocytes # (Manual) 1.1 H APTT ABG pH 7.200 L POC ABG pCO2 POC ABG pO2 67.2 L ABG pO2 ABG Base Excess ABG Hemoglobin 10.3 L ABG Oxyhemoglobin 89.6 L ABG Sodium 127.8 L ABG Potassium 5.1 H ABG Chloride ABG Glucose 132 H Carboxyhemoglobin 0.4 L Sodium Potassium Chloride Carbon Dioxide BUN Creatinine Glucose POC Glucose 128 H Lactic Acid Calcium Ionized Calcium Phosphorus Magnesium AST Alkaline Phosphatase Total Protein Albumin Triglycerides Arterial Blood Glucose 132 H Arterial Blood Ionized Calcium 3.5 L Urine Creatinine Crossmatch 12/28/20 12/28/20 12/28/20 07:28 11:37 13:25 WBC RBC Hgb Hct MCV MCHC RDW Plt Count Seg Neuts % (Manual) Lymphocytes % (Manual) Seg Neutrophils # Man Lymphocytes # (Manual) Monocytes # (Manual) APTT ABG pH POC ABG pCO2 POC ABG pO2 ABG pO2 ABG Base Excess ABG Hemoglobin ABG Oxyhemoglobin ABG Sodium ABG Potassium ABG Chloride ABG Glucose Carboxyhemoglobin Sodium 131 L 133 L Potassium 5.9 H 5.1 H Chloride 97.1 L Carbon Dioxide 15 L 21 L BUN 70 H 77 H Creatinine 4.0 H 4.4 H Glucose 118 H 140 H POC Glucose 135 H Lactic Acid Calcium 6.3 L 6.3 L Ionized Calcium Phosphorus 7.10 H Magnesium AST 144 H Alkaline Phosphatase Total Protein 4.8 L Albumin 1.3 L Triglycerides Arterial Blood Glucose Arterial Blood Ionized Calcium Urine Creatinine Crossmatch 12/28/20 12/28/20 12/29/20 16:38 23:28 03:08 WBC RBC Hgb Hct MCV MCHC RDW Plt Count Seg Neuts % (Manual) Lymphocytes % (Manual) Seg Neutrophils # Man Lymphocytes # (Manual) Monocytes # (Manual) APTT ABG pH 7.301 L POC ABG pCO2 POC ABG pO2 151.1 H ABG pO2 ABG Base Excess ABG Hemoglobin 8.7 L ABG Oxyhemoglobin 98.2 H ABG Sodium 123.4 L ABG Potassium ABG Chloride 97.0 L ABG Glucose 144 H Carboxyhemoglobin Sodium Potassium Chloride Carbon Dioxide BUN Creatinine Glucose POC Glucose 140 H 134 H Lactic Acid Calcium Ionized Calcium Phosphorus Magnesium AST Alkaline Phosphatase Total Protein Albumin Triglycerides Arterial Blood Glucose 144 H Arterial Blood Ionized Calcium 3.4 L Urine Creatinine Crossmatch 12/29/20 12/29/20 12/29/20 05:20 05:20 06:01 WBC 21.0 H RBC 2.89 L Hgb 8.1 L Hct 25.5 L MCV MCHC RDW 16.1 H Plt Count 124 L Seg Neuts % (Manual) Lymphocytes % (Manual) Seg Neutrophils # Man Lymphocytes # (Manual) Monocytes # (Manual) APTT ABG pH POC ABG pCO2 POC ABG pO2 ABG pO2 ABG Base Excess ABG Hemoglobin ABG Oxyhemoglobin ABG Sodium ABG Potassium ABG Chloride ABG Glucose Carboxyhemoglobin Sodium 131 L Potassium Chloride 93.4 L Carbon Dioxide BUN 79 H Creatinine 4.7 H Glucose 122 H POC Glucose 108 H Lactic Acid Calcium 5.5 L* Ionized Calcium Phosphorus 5.70 H Magnesium 1.60 L AST Alkaline Phosphatase Total Protein Albumin Triglycerides Arterial Blood Glucose Arterial Blood Ionized Calcium Urine Creatinine Crossmatch 12/29/20 12/29/20 12/29/20 10:04 11:27 17:31 WBC RBC Hgb Hct MCV MCHC RDW Plt Count Seg Neuts % (Manual) Lymphocytes % (Manual) Seg Neutrophils # Man Lymphocytes # (Manual) Monocytes # (Manual) APTT ABG pH POC ABG pCO2 POC ABG pO2 ABG pO2 ABG Base Excess ABG Hemoglobin ABG Oxyhemoglobin ABG Sodium ABG Potassium ABG Chloride ABG Glucose Carboxyhemoglobin Sodium Potassium Chloride Carbon Dioxide BUN Creatinine Glucose POC Glucose 107 H 112 H 110 H Lactic Acid Calcium Ionized Calcium Phosphorus Magnesium AST Alkaline Phosphatase Total Protein Albumin Triglycerides Arterial Blood Glucose Arterial Blood Ionized Calcium Urine Creatinine Crossmatch 12/30/20 12/30/20 12/30/20 03:31 08:06 17:39 WBC RBC Hgb Hct MCV MCHC RDW Plt Count Seg Neuts % (Manual) Lymphocytes % (Manual) Seg Neutrophils # Man Lymphocytes # (Manual) Monocytes # (Manual) APTT ABG pH 7.261 L POC ABG pCO2 POC ABG pO2 123.1 H ABG pO2 ABG Base Excess ABG Hemoglobin 8.7 L ABG Oxyhemoglobin ABG Sodium 123.2 L ABG Potassium ABG Chloride 96.0 L ABG Glucose 112 H Carboxyhemoglobin Sodium 128 L Potassium Chloride 90.7 L Carbon Dioxide 21 L BUN 86 H Creatinine 4.9 H Glucose 107 H POC Glucose 134 H Lactic Acid Calcium 6.2 L Ionized Calcium Phosphorus 5.30 H Magnesium 1.50 L AST Alkaline Phosphatase Total Protein Albumin Triglycerides Arterial Blood Glucose 112 H Arterial Blood Ionized Calcium 3.2 L Urine Creatinine Crossmatch 12/30/20 12/31/20 12/31/20 22:45 02:14 04:40 WBC RBC Hgb Hct MCV MCHC RDW Plt Count Seg Neuts % (Manual) Lymphocytes % (Manual) Seg Neutrophils # Man Lymphocytes # (Manual) Monocytes # (Manual) APTT ABG pH 7.267 L POC ABG pCO2 POC ABG pO2 ABG pO2 ABG Base Excess ABG Hemoglobin 8.0 L ABG Oxyhemoglobin 93.7 L ABG Sodium ABG Potassium ABG Chloride 95.0 L ABG Glucose 108 H Carboxyhemoglobin 1.7 H Sodium 126 L Potassium Chloride 90.3 L Carbon Dioxide 20 L BUN 70 H Creatinine 4.3 H Glucose 209 H POC Glucose 109 H Lactic Acid Calcium 6.6 L Ionized Calcium Phosphorus 4.70 H Magnesium 1.60 L AST Alkaline Phosphatase Total Protein Albumin Triglycerides 157 H Arterial Blood Glucose 108 H Arterial Blood Ionized Calcium 3.7 L Urine Creatinine Crossmatch 12/31/20 12/31/20 01/01/21 16:23 23:21 04:00 WBC 18.0 H RBC 2.75 L Hgb 7.7 L Hct 23.9 L MCV MCHC RDW 15.6 H Plt Count Seg Neuts % (Manual) 91.0 H Lymphocytes % (Manual) 6.0 L Seg Neutrophils # Man 16.4 H Lymphocytes # (Manual) 1.1 L Monocytes # (Manual) APTT ABG pH 7.264 L POC ABG pCO2 POC ABG pO2 74.8 L ABG pO2 ABG Base Excess ABG Hemoglobin 7.1 L ABG Oxyhemoglobin 92.1 L ABG Sodium 124.9 L ABG Potassium ABG Chloride 95.0 L ABG Glucose 111 H Carboxyhemoglobin 1.7 H Sodium Potassium Chloride Carbon Dioxide BUN Creatinine Glucose POC Glucose 125 H Lactic Acid Calcium Ionized Calcium Phosphorus Magnesium AST Alkaline Phosphatase Total Protein Albumin Triglycerides Arterial Blood Glucose 111 H Arterial Blood Ionized Calcium 4.0 L Urine Creatinine Crossmatch 01/01/21 01/01/21 01/01/21 05:50 13:41 15:55 WBC RBC Hgb Hct MCV MCHC RDW Plt Count Seg Neuts % (Manual) Lymphocytes % (Manual) Seg Neutrophils # Man Lymphocytes # (Manual) Monocytes # (Manual) APTT ABG pH 7.148 L 7.207 L POC ABG pCO2 53.1 H POC ABG pO2 57.3 L 138.4 H ABG pO2 ABG Base Excess ABG Hemoglobin 9.0 L 8.3 L ABG Oxyhemoglobin 83.2 L ABG Sodium 126.2 L 124.5 L ABG Potassium ABG Chloride 95.0 L 95.0 L ABG Glucose 96 H 120 H Carboxyhemoglobin Sodium 131 L Potassium Chloride 93.3 L Carbon Dioxide 21 L BUN 67 H Creatinine 4.2 H Glucose POC Glucose Lactic Acid Calcium 7.1 L Ionized Calcium Phosphorus Magnesium AST 60 H Alkaline Phosphatase Total Protein 4.8 L Albumin 1.4 L Triglycerides Arterial Blood Glucose 96 H 120 H Arterial Blood Ionized Calcium 4.1 L 3.9 L Urine Creatinine Crossmatch 01/01/21 01/01/21 01/02/21 17:09 23:24 03:47 WBC RBC Hgb Hct MCV MCHC RDW Plt Count Seg Neuts % (Manual) Lymphocytes % (Manual) Seg Neutrophils # Man Lymphocytes # (Manual) Monocytes # (Manual) APTT ABG pH 7.276 L POC ABG pCO2 POC ABG pO2 173.6 H ABG pO2 ABG Base Excess ABG Hemoglobin 7 L ABG Oxyhemoglobin ABG Sodium 122.4 L ABG Potassium ABG Chloride 94.0 L ABG Glucose 118 H Carboxyhemoglobin Sodium Potassium Chloride Carbon Dioxide BUN Creatinine Glucose POC Glucose 124 H 119 H Lactic Acid Calcium Ionized Calcium Phosphorus Magnesium AST Alkaline Phosphatase Total Protein Albumin Triglycerides Arterial Blood Glucose 118 H Arterial Blood Ionized Calcium 4.0 L Urine Creatinine Crossmatch 01/02/21 01/02/21 01/02/21 05:33 08:00 08:00 WBC 19.7 H RBC 2.53 L Hgb 7.1 L Hct 22.0 L MCV MCHC RDW 16.4 H Plt Count Seg Neuts % (Manual) Lymphocytes % (Manual) Seg Neutrophils # Man Lymphocytes # (Manual) Monocytes # (Manual) APTT ABG pH POC ABG pCO2 POC ABG pO2 ABG pO2 ABG Base Excess ABG Hemoglobin ABG Oxyhemoglobin ABG Sodium ABG Potassium ABG Chloride ABG Glucose Carboxyhemoglobin Sodium 127 L Potassium Chloride 89.3 L Carbon Dioxide 19 L BUN 82 H Creatinine 5.0 H Glucose 103 H POC Glucose 107 H Lactic Acid Calcium 7.8 L Ionized Calcium Phosphorus 6.40 H Magnesium AST 47 H Alkaline Phosphatase Total Protein 5.0 L Albumin 1.6 L Triglycerides Arterial Blood Glucose Arterial Blood Ionized Calcium Urine Creatinine Crossmatch 01/02/21 01/03/21 01/03/21 17:25 07:56 09:47 WBC 17.7 H RBC 2.19 L Hgb 6.2 L Hct 18.5 L* MCV MCHC RDW 16.1 H Plt Count Seg Neuts % (Manual) Lymphocytes % (Manual) Seg Neutrophils # Man Lymphocytes # (Manual) Monocytes # (Manual) APTT ABG pH POC ABG pCO2 POC ABG pO2 ABG pO2 ABG Base Excess ABG Hemoglobin ABG Oxyhemoglobin ABG Sodium ABG Potassium ABG Chloride ABG Glucose Carboxyhemoglobin Sodium 130 L Potassium 3.5 L Chloride 90.3 L Carbon Dioxide BUN 68 H Creatinine 3.9 H Glucose 103 H POC Glucose 116 H Lactic Acid Calcium 8.0 L Ionized Calcium Phosphorus 4.80 H D Magnesium AST Alkaline Phosphatase Total Protein Albumin Triglycerides Arterial Blood Glucose Arterial Blood Ionized Calcium Urine Creatinine Crossmatch 01/03/21 01/03/21 01/04/21 11:00 19:00 03:12 WBC 17.0 H RBC 2.51 L Hgb 7.1 L Hct 21.5 L MCV MCHC RDW 16.6 H Plt Count Seg Neuts % (Manual) Lymphocytes % (Manual) Seg Neutrophils # Man Lymphocytes # (Manual) Monocytes # (Manual) APTT ABG pH 7.463 H POC ABG pCO2 POC ABG pO2 72.2 L ABG pO2 ABG Base Excess ABG Hemoglobin 6.2 L ABG Oxyhemoglobin 91.8 L ABG Sodium 128.4 L ABG Potassium 3.3 L ABG Chloride 96.0 L ABG Glucose 112 H Carboxyhemoglobin Sodium Potassium Chloride Carbon Dioxide BUN Creatinine Glucose POC Glucose Lactic Acid Calcium Ionized Calcium Phosphorus Magnesium AST Alkaline Phosphatase Total Protein Albumin Triglycerides Arterial Blood Glucose 112 H Arterial Blood Ionized Calcium 4.3 L Urine Creatinine Crossmatch See Detail 01/04/21 01/04/21 01/04/21 05:16 06:20 06:20 WBC 18.5 H RBC 2.53 L Hgb 7.4 L Hct 21.9 L MCV MCHC RDW 15.8 H Plt Count Seg Neuts % (Manual) Lymphocytes % (Manual) Seg Neutrophils # Man Lymphocytes # (Manual) Monocytes # (Manual) APTT ABG pH POC ABG pCO2 POC ABG pO2 ABG pO2 ABG Base Excess ABG Hemoglobin ABG Oxyhemoglobin ABG Sodium ABG Potassium ABG Chloride ABG Glucose Carboxyhemoglobin Sodium 135 L Potassium Chloride 95.2 L Carbon Dioxide BUN 56 H Creatinine 3.2 H Glucose 109 H POC Glucose 123 H Lactic Acid Calcium 7.6 L Ionized Calcium Phosphorus Magnesium AST Alkaline Phosphatase Total Protein Albumin Triglycerides Arterial Blood Glucose Arterial Blood Ionized Calcium Urine Creatinine Crossmatch 01/05/21 01/05/21 01/05/21 03:50 07:22 07:22 WBC 23.8 H RBC 2.93 L Hgb 8.2 L Hct 25.1 L MCV MCHC RDW 16.5 H Plt Count Seg Neuts % (Manual) Lymphocytes % (Manual) Seg Neutrophils # Man Lymphocytes # (Manual) Monocytes # (Manual) APTT ABG pH POC ABG pCO2 POC ABG pO2 ABG pO2 136.8 H ABG Base Excess -2.3 L ABG Hemoglobin 6.9 L ABG Oxyhemoglobin ABG Sodium ABG Potassium ABG Chloride ABG Glucose Carboxyhemoglobin Sodium 134 L Potassium Chloride 93.3 L Carbon Dioxide BUN 77 H Creatinine 4.2 H Glucose 105 H POC Glucose Lactic Acid Calcium Ionized Calcium Phosphorus 4.90 H D Magnesium AST Alkaline Phosphatase Total Protein Albumin Triglycerides Arterial Blood Glucose Arterial Blood Ionized Calcium Urine Creatinine Crossmatch 01/05/21 01/05/21 01/05/21 11:02 14:06 15:37 WBC RBC Hgb Hct MCV MCHC RDW Plt Count Seg Neuts % (Manual) Lymphocytes % (Manual) Seg Neutrophils # Man Lymphocytes # (Manual) Monocytes # (Manual) APTT ABG pH POC ABG pCO2 POC ABG pO2 332.3 H ABG pO2 ABG Base Excess ABG Hemoglobin 7.7 L ABG Oxyhemoglobin 98.7 H ABG Sodium 131.0 L ABG Potassium 3.3 L ABG Chloride 97.0 L ABG Glucose 118 H Carboxyhemoglobin Sodium Potassium Chloride Carbon Dioxide BUN Creatinine Glucose POC Glucose 118 H 111 H Lactic Acid Calcium Ionized Calcium Phosphorus Magnesium AST Alkaline Phosphatase Total Protein Albumin Triglycerides Arterial Blood Glucose 118 H Arterial Blood Ionized Calcium 4.4 L Urine Creatinine Crossmatch 01/05/21 01/06/21 01/06/21 23:18 04:00 04:20 WBC RBC Hgb Hct MCV MCHC RDW Plt Count Seg Neuts % (Manual) Lymphocytes % (Manual) Seg Neutrophils # Man Lymphocytes # (Manual) Monocytes # (Manual) APTT ABG pH POC ABG pCO2 POC ABG pO2 230.5 H ABG pO2 ABG Base Excess ABG Hemoglobin 7.9 L ABG Oxyhemoglobin 98.5 H ABG Sodium 129.4 L ABG Potassium ABG Chloride 97.0 L ABG Glucose 117 H Carboxyhemoglobin Sodium 133 L Potassium Chloride 94.4 L Carbon Dioxide BUN 62 H Creatinine 3.6 H Glucose 110 H POC Glucose 110 H Lactic Acid Calcium 7.8 L Ionized Calcium Phosphorus Magnesium AST Alkaline Phosphatase Total Protein Albumin Triglycerides Arterial Blood Glucose 117 H Arterial Blood Ionized Calcium 4.5 L Urine Creatinine Crossmatch 0601/06/21 01/06/21 05:28 09:00 11:00 WBC 15.2 H RBC 2.18 L Hgb 6.5 L Hct 21.8 L MCV 100 H MCHC 30 L RDW 18.5 H Plt Count Seg Neuts % (Manual) Lymphocytes % (Manual) Seg Neutrophils # Man Lymphocytes # (Manual) Monocytes # (Manual) APTT ABG pH POC ABG pCO2 POC ABG pO2 ABG pO2 ABG Base Excess ABG Hemoglobin ABG Oxyhemoglobin ABG Sodium ABG Potassium ABG Chloride ABG Glucose Carboxyhemoglobin Sodium Potassium Chloride Carbon Dioxide BUN Creatinine Glucose POC Glucose 109 H Lactic Acid Calcium Ionized Calcium Phosphorus Magnesium AST Alkaline Phosphatase Total Protein Albumin Triglycerides Arterial Blood Glucose Arterial Blood Ionized Calcium Urine Creatinine Crossmatch See Detail 01/06/21 01/06/21 01/07/21 11:32 23:44 03:10 WBC 15.3 H RBC 2.30 L Hgb 6.7 L Hct 20.1 L MCV MCHC RDW 16.6 H Plt Count Seg Neuts % (Manual) Lymphocytes % (Manual) Seg Neutrophils # Man Lymphocytes # (Manual) Monocytes # (Manual) APTT ABG pH POC ABG pCO2 POC ABG pO2 ABG pO2 ABG Base Excess ABG Hemoglobin ABG Oxyhemoglobin ABG Sodium ABG Potassium ABG Chloride ABG Glucose Carboxyhemoglobin Sodium Potassium Chloride Carbon Dioxide BUN Creatinine Glucose POC Glucose 113 H 118 H Lactic Acid Calcium Ionized Calcium Phosphorus Magnesium AST Alkaline Phosphatase Total Protein Albumin Triglycerides Arterial Blood Glucose Arterial Blood Ionized Calcium Urine Creatinine Crossmatch 01/07/21 01/07/21 01/07/21 03:10 04:17 05:06 WBC RBC Hgb Hct MCV MCHC RDW Plt Count Seg Neuts % (Manual) Lymphocytes % (Manual) Seg Neutrophils # Man Lymphocytes # (Manual) Monocytes # (Manual) APTT ABG pH 7.272 L POC ABG pCO2 50.1 H POC ABG pO2 ABG pO2 ABG Base Excess ABG Hemoglobin 8.4 L ABG Oxyhemoglobin ABG Sodium 128.6 L ABG Potassium ABG Chloride 95.0 L ABG Glucose 109 H Carboxyhemoglobin Sodium 133 L Potassium Chloride 93.6 L Carbon Dioxide BUN 85 H Creatinine 3.9 H Glucose 112 H POC Glucose 106 H Lactic Acid Calcium Ionized Calcium Phosphorus 4.70 H D Magnesium AST Alkaline Phosphatase Total Protein Albumin Triglycerides Arterial Blood Glucose 109 H Arterial Blood Ionized Calcium Urine Creatinine Crossmatch 01/07/21 01/07/21 01/07/21 14:05 16:00 23:25 WBC RBC Hgb 8.1 L Hct 24.2 L MCV MCHC RDW Plt Count Seg Neuts % (Manual) Lymphocytes % (Manual) Seg Neutrophils # Man Lymphocytes # (Manual) Monocytes # (Manual) APTT ABG pH POC ABG pCO2 POC ABG pO2 ABG pO2 ABG Base Excess ABG Hemoglobin 7.2 L ABG Oxyhemoglobin ABG Sodium 127.3 L ABG Potassium ABG Chloride 96.0 L ABG Glucose 98 H Carboxyhemoglobin Sodium Potassium Chloride Carbon Dioxide BUN Creatinine Glucose POC Glucose 106 H Lactic Acid Calcium Ionized Calcium Phosphorus Magnesium AST Alkaline Phosphatase Total Protein Albumin Triglycerides Arterial Blood Glucose 98 H Arterial Blood Ionized Calcium Urine Creatinine Crossmatch 01/08/21 01/08/21 01/08/21 03:22 05:30 Unknown WBC 15.2 H RBC 2.62 L Hgb 7.6 L Hct 22.7 L MCV MCHC RDW 16.7 H Plt Count Seg Neuts % (Manual) 95.0 H Lymphocytes % (Manual) 3.0 L Seg Neutrophils # Man 14.4 H Lymphocytes # (Manual) 0.5 L Monocytes # (Manual) APTT ABG pH POC ABG pCO2 POC ABG pO2 71.3 L ABG pO2 ABG Base Excess ABG Hemoglobin 8.7 L ABG Oxyhemoglobin 92.2 L ABG Sodium 125.9 L ABG Potassium ABG Chloride 96.0 L ABG Glucose 124 H Carboxyhemoglobin Sodium Potassium Chloride Carbon Dioxide BUN Creatinine Glucose POC Glucose 118 H Lactic Acid Calcium Ionized Calcium Phosphorus Magnesium AST Alkaline Phosphatase Total Protein Albumin Triglycerides Arterial Blood Glucose 124 H Arterial Blood Ionized Calcium Urine Creatinine Crossmatch 01/08/21 Unknown WBC RBC Hgb Hct MCV MCHC RDW Plt Count Seg Neuts % (Manual) Lymphocytes % (Manual) Seg Neutrophils # Man Lymphocytes # (Manual) Monocytes # (Manual) APTT ABG pH POC ABG pCO2 POC ABG pO2 ABG pO2 ABG Base Excess ABG Hemoglobin ABG Oxyhemoglobin ABG Sodium ABG Potassium ABG Chloride ABG Glucose Carboxyhemoglobin Sodium 129 L Potassium Chloride 91.2 L Carbon Dioxide 21 L BUN 91 H Creatinine 4.0 H Glucose 115 H POC Glucose Lactic Acid Calcium Ionized Calcium Phosphorus Magnesium AST Alkaline Phosphatase Total Protein Albumin Triglycerides 166 H Arterial Blood Glucose Arterial Blood Ionized Calcium Urine Creatinine Crossmatch
--- NOTE | 2021-01-08 12:21 | Progress Note ---
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 POD#17 s/p abdominal exploration with segmental small bowel resection. abthera placement POD#14 s/p abdominal exploration, small bowel resection for ischemia, abthera placement POD#11 s/p abdominal exploration with small bowel anastamosis and abthera vac placement POD#7 s/p abdomen closure with mesh Afebrile and stable off pressors. 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 Anemia likely due to illness and procedural losses. No clinical signs of identifiable bleeding. Will follow up post transfusion labs. Continue supportive care. Prognosis is guarded. Subjective Date of service: 01/08/21 Narrative: No acute events overnight. Patient received additional unit of PRBC yesterday. Patient is awake and more alert on the ventilator. Patient trying to communicate. Objective Vital Signs - 12hr 01/08/21 01/08/21 01/08/21 00:30 00:45 01:00 Temperature Pulse Rate 75 71 70 Respiratory 24 24 25 H Rate Blood Pressure 103/62 103/62 103/62 O2 Sat by Pulse 95 97 97 Oximetry 01/08/21 01/08/21 01/08/21 01:16 01:30 01:45 Temperature Pulse Rate 68 68 67 Respiratory 24 24 24 Rate Blood Pressure 109/65 109/65 O2 Sat by Pulse 98 97 98 Oximetry 01/08/21 01/08/21 01/08/21 02:00 02:15 02:30 Temperature Pulse Rate 66 66 66 Respiratory 11 L 24 24 Rate Blood Pressure 114/64 114/64 115/65 O2 Sat by Pulse 97 98 97 Oximetry 01/08/21 01/08/21 01/08/21 02:45 03:00 03:15 Temperature Pulse Rate 66 65 66 Respiratory 15 6 L 6 L Rate Blood Pressure 115/65 111/62 111/62 O2 Sat by Pulse 98 97 98 Oximetry 01/08/21 01/08/21 01/08/21 03:19 03:30 03:31 Temperature 97.9 F Pulse Rate 66 75 Respiratory 25 H 21 Rate Blood Pressure 109/73 O2 Sat by Pulse 99 97 Oximetry 01/08/21 01/08/21 01/08/21 03:44 03:45 04:00 Temperature Pulse Rate 67 67 66 Respiratory 24 24 Rate Blood Pressure 109/73 111/62 111/63 O2 Sat by Pulse 98 98 94 Oximetry 01/08/21 01/08/21 01/08/21 04:15 04:30 04:45 Temperature Pulse Rate 73 67 65 Respiratory 24 24 24 Rate Blood Pressure 111/63 96/58 96/58 O2 Sat by Pulse 98 91 96 Oximetry 01/08/21 01/08/21 01/08/21 05:00 05:15 05:30 Temperature Pulse Rate 65 65 67 Respiratory 23 24 20 Rate Blood Pressure 110/61 110/61 108/62 O2 Sat by Pulse 96 97 97 Oximetry 01/08/21 01/08/21 01/08/21 05:45 06:00 06:05 Temperature Pulse Rate 67 67 Respiratory 24 24 25 H Rate Blood Pressure 108/62 98/58 O2 Sat by Pulse 97 98 99 Oximetry 01/08/21 01/08/21 01/08/21 06:15 06:31 06:45 Temperature Pulse Rate 69 80 78 Respiratory 24 22 24 Rate Blood Pressure 98/58 108/78 98/58 O2 Sat by Pulse 97 97 97 Oximetry 01/08/21 01/08/21 01/08/21 07:00 07:15 07:30 Temperature Pulse Rate 68 67 66 Respiratory 24 24 24 Rate Blood Pressure 104/63 108/78 106/66 O2 Sat by Pulse 97 98 97 Oximetry 01/08/21 01/08/21 01/08/21 07:45 08:00 08:01 Temperature 98.1 F Pulse Rate 64 80 81 Respiratory 24 16 16 Rate Blood Pressure 104/63 132/91 O2 Sat by Pulse 97 96 96 Oximetry 01/08/21 01/08/21 01/08/21 08:15 08:31 08:45 Temperature Pulse Rate 91 H 91 H 92 H Respiratory 25 H 19 22 Rate Blood Pressure 106/66 152/100 152/100 O2 Sat by Pulse 96 96 95 Oximetry 01/08/21 01/08/21 01/08/21 09:01 09:15 09:31 Temperature Pulse Rate 86 84 80 Respiratory 15 17 24 Rate Blood Pressure 147/85 147/85 120/72 O2 Sat by Pulse 95 95 95 Oximetry 01/08/21 01/08/21 01/08/21 09:45 10:00 10:15 Temperature Pulse Rate 73 64 65 Respiratory 24 24 24 Rate Blood Pressure 120/72 117/47 117/47 O2 Sat by Pulse 98 97 98 Oximetry 01/08/21 01/08/21 01/08/21 10:30 10:45 11:00 Temperature Pulse Rate 64 65 65 Respiratory 24 24 24 Rate Blood Pressure 107/56 117/47 109/61 O2 Sat by Pulse 97 98 99 Oximetry 01/08/21 11:49 Temperature Pulse Rate 88 Respiratory Rate Blood Pressure 109/61 O2 Sat by Pulse 100 Oximetry - General physical appearance well developed, moderate distress, no pain - Respiratory normal expansion, normal respiratory effort - Abdomen soft, other (incision c/d/i, LAURA drains serous) - Genitourinary other (massive scrotal swelling) - Labs 01/08/21 Unknown 01/08/21 Unknown Diabetes panel 01/08/21 Range/Units Unknown Sodium 129 L (137-145) mmol/L Potassium 4.0 (3.6-5.0) mmol/L Chloride 91.2 L (98-107) mmol/L Carbon Dioxide 21 L (22-30) mmol/L BUN 91 H (9-20) mg/dL Creatinine 4.0 H (0.8-1.3) mg/dL Glucose 115 H (75-100) mg/dL Calcium 8.6 (8.4-10.2) mg/dL Triglycerides 166 H (2-149) mg/dL Calcium panel 01/08/21 Range/Units Unknown Calcium 8.6 (8.4-10.2) mg/dL Phosphorus 4.40 (2.5-4.5) mg/dL Pituitary panel 01/08/21 Range/Units Unknown Sodium 129 L (137-145) mmol/L Potassium 4.0 (3.6-5.0) mmol/L Chloride 91.2 L (98-107) mmol/L Carbon Dioxide 21 L (22-30) mmol/L BUN 91 H (9-20) mg/dL Creatinine 4.0 H (0.8-1.3) mg/dL Glucose 115 H (75-100) mg/dL Calcium 8.6 (8.4-10.2) mg/dL Adrenal panel 01/08/21 Range/Units Unknown Sodium 129 L (137-145) mmol/L Potassium 4.0 (3.6-5.0) mmol/L Chloride 91.2 L (98-107) mmol/L Carbon Dioxide 21 L (22-30) mmol/L BUN 91 H (9-20) mg/dL Creatinine 4.0 H (0.8-1.3) mg/dL Glucose 115 H (75-100) mg/dL Calcium 8.6 (8.4-10.2) mg/dL
--- NOTE | 2021-01-08 12:50 | Progress Note ---
Assessment and Plan Assessment and plan: This is a 60-year-old male with obesity, hypertension, nicotine dependence, PVD s/p stent placement on dual antiplatelet therapy, hyperlipidemia, OA, GERD, ventral hernia and small bowel obstruction who was admitted with small bowel obstruction and peritonitis Septic Shock, POA (presented with leukocytosis, tachycardia, tachypnea,febrile and evidence of peritonitis) COVID-19 PUI, ruled out Small bowel obstruction with peritonitis Ventral hernia s/p repair Leukocytosis Anemia, likely Hyponatremia Hypochloremia Acute Kidney Injury, on HD now Obesity Hypertension Nicotine dependence CAD s/p stent placement Hyperlipidemia Osteoarthritis GERD -[facility], surgery, infectious disease, nephrology consulted, appreciate recommendations -12/20 CT abdomen/pelvis showed high-grade small bowel obstruction related to severe complex ventral abdominal wall hernias, progressed in appearance from prior exam from 09/12/2020 without evidence of pneumonitis or pneumoperitoneum, patchy bibasilar airspace disease concern for atypical infectious process/pneumonitis -12/20 s/p ex lap, extensive lysis of adhesions, small bowel resection (removal of 70 cm necrotic small bowel segment), peritoneal lavage and ABThera abdominal wound VAC placement -12/23 s/p abdominal exploration, small bowel resection, peritoneal lavage, A BThera wound VAC placement -12/26 s/p ex lap, small bowel resection, peritoneal lavage, ABThera wound VAC placement -12/29 s/p ex lap, small bowel resection, small bowel anastomosis and ABThera wound VAC placement -01/01 s/p myocutaneous flap creation, abdominal wall component separation and placement of phasix mesh with surgery yesterday where his abdomen was closed and 2 LAURA drains were placed on either side of his midline between fascia and subcu tissue. -12/30 initiated on HD by nephro -IV abx per ID: Zosyn, fluconazole -NGT, clamping trials underway -NPO for now, TPN -SSI, Accucheck q6 -s/p Vasopressor support -HD per nephro -12/23 Fractional excretion of sodium calculated at 0.16 indicating prerenal state -COVID-19 PCR negative -On mechanical ventilation, wean as tolerated, VAP bundle -Propofol, fentanyl, IV push Dilaudid, Precedex -Transfuse for Hbg < 7 -Trend CBC, BMP, Mg, Phos GI/DVT prophylaxis: PPI, SCDs to bilateral lower extremities while in bed, heparin subcu Disposition: ICU Lines: PICC placed 01/05, Femoral trialysis The high probability of a clinically significant, sudden or life threatening deterioration of the [multi] system(s) required my full and direct attention, intervention and personal management. The aggregate critical care time was [35] minutes. This time is in addition to time spent performing reported procedures but includes the following: [x] Data Review and interpretation [x] Patient assessment and monitoring of vital signs [x] Documentation [x] Medication orders and management History Interval history: This is a 60-year-old male with obesity, hypertension, nicotine dependence, PVD s/p stent placement on dual antiplatelet therapy, hyperlipidemia, OA, GERD, ventral hernia with SBO who presents to the emergency department on 12/20 with severe, diffuse, worsened with movement, slightly relieved with rest abdominal pain rated at 10/10 with decreased oral intake, nausea and multiple episodes of vomiting. Patient underwent a CT of his abdomen/pelvis and was found to have evidence of small bowel obstruction as well as clinical findings consistent with acute peritonitis. Patient was admitted to the hospital service with acute peritonitis and incarcerated ventral hernia with consults to [facility] and surgery. 12/21: Patient is status post ex lap, extensive lysis of adhesions, small bowel resection, peritoneal lavage and ABThera abdominal wound VAC placement by Dr. Tena and Dr. Brumfield on 12/20 with removal of a 70 cm segment of necrotic small bowel. Patient was intubated and sedated on propofol 10/ fent 4 at the time of my examination on Assist-control, rate of 24, PEEP of 6, tidal volume of 550 and FiO2 35%. Patient needed to be deeply sedated and there was a became hypotensive. Patient was started on patient for support with Levophed and received bolus of IVF. 12/22: Patient was febrile to 103 and vancomycin and Diflucan were added by [facility] and infectious disease was consulted and they increased Zosyn and stop vancomycin. Patient was given additional 1 L bolus today for CVP goal of 10-12. At the time of examination patient was on Levophed, propofol and fentanyl CMV tidal volume 500, rate of 24, PEEP of 6 and FiO2 65%. Plan for OR tomorrow 12/23: Patient Cr/BUN noted to be increased and nephrology was consulted. ID decreased the zosyn dose d/r renal function. Urine studies ordered. Ivy placed today. LR boluses per [facility], TPN to be started. Fractional excretion of sodium calculated at 0.16 indicating prerenal state 12/24: Patient is status post abdominal exploration, small bowel resection of 4 to 5 cm segment of dusky small bowel, peritoneal lavage and ABThera wound VAC p lacement on 12/23 with surgery, leukocytosis and renal function is improving, worsening hypernatremia and hyperchloremia. Patient will be started on TPN today. We will place on SSI/Accu-Cheks every every 6 hours. Patient noted to be nearly maxed on Levophed and vasopressin was ordered. Remains sedated and on MV 12/25: Leukocytosis continues to improve, given Ca Gluconate today, Hypernatremia, Cr and hyperchorlemia slightly worsened today. Patient is sedated with propofol and fentanyl on CMV TV 500, Rate 24, Peep 6, FiO2 50%. He remains on levophed. Possible OR Saturday. 12/26 Patient presented with small bowel obstruction, is status post ex lap, extensive lysis of adhesions, small bowel resection, peritoneal lavage and ABThera abdominal wound VAC placement by Dr. Tena and Dr. Brumfield on 12/20 with removal of a 70 cm segment of necrotic small bowel. Was taken back to OR on 12/23 s/p Abdominal exploration, Small bowel resection, Peritoneal lavage, ABThera wound VAC placement. he is still having fever. Poss going to OR again today. Sepsis managed by ID. He is on Diflucan, Zosyn. He is on Levophed. 6/8 s/p ex lap, extensive lysis of adhesions, small bowel resection (removal of 70 cm necrotic small bowel segment), peritoneal lavage and ABThera abdominal wound VAC placement. Still having fever Still on vent 12/28: Patient is orally intubated with AC mode ventilation rate 24, tidal volume 500, FiO2 75% and PEEP of 6. POD#8 s/p ex lap and small bowel resection for necrotic bowel secondary to incarcerated ventral hernia left with open abdomen. POD#5 s/p abdominal exploration with segmental small bowel resection. abthera placement POD#2 s/p abdominal exploration, small bowel resection for ischemia, abthera placement -[facility], surgery, infectious disease, nephrology consulted, appreciate recommendations -IV abx per ID: Zosyn, fluconazole -NGT to LIWS -NPO for now, TPN -SSI, Accucheck q6 -Vasopressor support with levophed -On mechanical ventilation, wean as tolerated, VAP bundle -Sedated with propofol and analgesia with fentanyl drip -Trend CBC, BMP, Mg, Phos -GI/DVT prophylaxis: PPI, SCDs to bilateral lower extremities while in bed, avoid chemical anticoagulation to cleared by surgery 12/29: Patient underwent abdominal exploration, small bowel resection, small bowel anastomosis and ABThera wound VAC placement this a.m. Patient remains on AC mode ventilation with a rate of 24, tidal volume 500, FiO2 65% and PEEP of 6. Continue antibiotics per ID recommendations. Continue vasopressor support as needed. Continue TPN for nutritional support. 12/30: Patient currently with AC mode ventilation rate of 24, tidal volume 500, FiO2 60% and PEEP of 6. Patient underwent further surgery yesterday with another abdominal exploration, small bowel resection, small bowel anastomosis and replacement of the ABThera wound VAC. Patient continues to require vasopressor support with vasopressin and Levophed. Continue TPN for nutrition. Continue propofol and fentanyl for sedation. Continue Zosyn per ID recommendations 12: Patient currently with AC mode ventilation rate of 24, tidal volume 500, FiO2 50% and PEEP of 6. POD#12 s/p ex lap and small bowel resection for necrotic bowel secondary to incarcerated ventral hernia left with open abdomen. POD#9 s/p abdominal exploration with segmental small bowel resection. abthera placement POD#3 s/p abdominal exploration, small bowel resection for ischemia, abthera placement POD#2 s/p abdominal exploration with small bowel anastamosis and abthera vac placement Continue hemodialysis per nephrology recommendations. Surgery plans for abdominal washout and bowel examination on Saturday. If anastamosis looks viable and no other issues, surgery plans to close his abdomen. 01/01: Continue current ventilator settings per pulmonary monitor ABG. Continue antibiotics per ID recommendations. Surgery plans for abdominal washout and bowel examination. If anastamosis looks viable and no other issues, surgery plans to close his abdomen. Wean pressors to maintain MAP > 65. Continue TPN for nutritional support. Hemodialysis per nephrology recommendations. Prognosis remains guarded. 01/02: At the time my examination patient was only on vasopressin for vasopressor support, sedated on 30 mcg of propofol and 4 mcg of fentanyl. Patient was on CMV tidal volume 500, rate of 12, PEEP of 10 and 50% FiO2. Patient remains on TPN and with NG tube to low intermittent suction. Patient underwent a myocutaneous flap creation, abdominal wall component separation and placement of phasix mesh with surgery yesterday where his abdomen was closed and 2 LAURA drains were placed on either side of his midline between fascia and subcu tissue. Per infectious his antibiotics will continue until 5 days postop from a final surgery. Patient has increasing leukocytosis which are likely reactive to surgery and patient will have hemodialysis today for clearance and volume removal. Patient sedation and mechanical ventilation will be weaned for extubation. 01/03: Patient H/H is 6.2/18.5 and he is being transfused 2 units PRBC with hemodialysis today. Patient has slight hypokalemia but TPN has been adjusted to address potassium. Patient continues to have hyponatremia, hypochloremia and hyperphosphatemia closely improved. The time my examination patient sedated on fentanyl and propofol and LAURA drainage noted to be more serosanguineous. Patient was on assist control with TV 500, PEEP of 8, rate of 28 and FiO2 40%. Patient remains off vasopressor support. No acute overnight events reported 01/04: Patient sedated on propofol and fentanyl. RN reported bowel movement overnight. Precedex drip started. NG tube clamped and may start trickle tube feedings later if patient does not have high residuals. CCM continues to wean ventilation as tolerated. On my exam patient is on CMV tidal volume 500 rate of 28, PEEP of 8 and 40% FiO2. Patient is having periods of agitation and FiO2 had to be increased for hypoxia. Mucor species in tracheal aspirate but ID believes this is colonization. 01/05: Patient is severely agitated and received multiple IV push fentanyl. Patient was ultimately started on propofol. He received hemodialysis today. Patient had approximately 400 mL of NG output overnight. NG tube continues to be on suction. Leukocytosis worsened today. 01/06: Patient is agitated despite fentanyl pushes and Dilaudid was ordered, patient noted to be anemic with a hemoglobin of 6.5 and will be transfused 1 unit PRBC today. Nephrology does not plan to dialyze him today and to keep him on Saturday, , Saturday schedule. No acute events reported overnight. Patient NG tube residuals continue to decrease and surgery has cleared for trickle tube feeds which has been communicated to dietitian. 01/07: This this morning H/H resulted at 6.7/20.1 after 1 unit PRBC 6.7/21.8. Patient's ABG today shows respiratory acidosis and vent settings have been changed by [facility]. Patient should receive hemodialysis today as he is on Saturday schedule. Overnight RN reported 700 mL of NG tube output over 12 hours. We will hold off on trickle feeds and continue TPN. At the time of my examination patient was sedated on propofol, fentanyl, Precedex and on CMV tidal volume 550, rate of 10, PEEP of 8 and 35% FiO2. We will order coags and stool guaiac to further investigate anemia. 01/08/2021: Patient seen and examined this morning, patient was awake and lucid, continues to be intubated. Patient continues to be on ventilation. Hospitalist Physical - Physical exam Narrative exam: General appearance: Obese, no acute distress, well-nourished EENT: PERRL, EOM intact, hearing intact Neck: Present: supple, normal ROM Respiratory: Patient intubated, bilateral CTA, negative: rales, rhonchi, wheezing Cardiovascular: Regular rate/rhythm, Normal S1 & S2. No gallop, rub Extremities: no ischemia, No edema, normal temperature, normal color, Full ROM Abdominal: LAURA drains with serous drainage. Abdominal binder with surgical dressing. Soft, no tenderness, non-distended : Scrotal edema with erythema, Lawrence catheter Integumentary: Present: clear, warm, dry no wounds, no erythema noted Neurologic: Cannot complete neuro exam due to intubation, patient is alert - Constitutional Vitals: Temp Pulse Resp BP Pulse Ox 98.1 F 88 24 109/61 100 01/08/21 08:00 01/08/21 11:49 01/08/21 11:00 01/08/21 11:49 01/08/21 11:49 HEART Score - HEART Score Troponin: Troponin T < 0.010 ng/mL (0.00-0.029) 12/20/20 13:58 Results - Labs CBC & Chem 7: 01/08/21 Unknown 01/08/21 Unknown Labs: Laboratory Last Values WBC 15.2 K/mm3 (4.5-11.0) H 01/08/21 Unknown RBC 2.62 M/mm3 (3.65-5.03) L 01/08/21 Unknown Hgb 7.6 gm/dl (11.8-15.2) L 01/08/21 Unknown Hct 22.7 % (35.5-45.6) L 01/08/21 Unknown MCV 87 fl (84-94) 01/08/21 Unknown MCH 29 pg (28-32) 01/08/21 Unknown MCHC 33 % (32-34) 01/08/21 Unknown RDW 16.7 % (13.2-15.2) H 01/08/21 Unknown Plt Count 242 K/mm3 (140-440) 01/08/21 Unknown Add Manual Diff Complete 01/08/21 Unknown Total Counted 100 01/08/21 Unknown Seg Neutrophils % Development Associate 01/08/21 Unknown Seg Neuts % (Manual) 95.0 % (40.0-70.0) H 01/08/21 Unknown Band Neutrophils % 1.0 % 01/08/21 Unknown Lymphocytes % (Manual) 3.0 % (13.4-35.0) L 01/08/21 Unknown Monocytes % (Manual) 1.0 % (0.0-7.3) 01/08/21 Unknown Nucleated RBC % Not Reportable 01/08/21 Unknown Seg Neutrophils # Man 14.4 K/mm3 (1.8-7.7) H 01/08/21 Unknown Band Neutrophils # 0.2 K/mm3 01/08/21 Unknown Lymphocytes # (Manual) 0.5 K/mm3 (1.2-5.4) L 01/08/21 Unknown Abs React Lymphs (Man) 0.0 K/mm3 01/08/21 Unknown Monocytes # (Manual) 0.2 K/mm3 (0.0-0.8) 01/08/21 Unknown Eosinophils # (Manual) 0.0 K/mm3 (0.0-0.4) 01/08/21 Unknown Basophils # (Manual) 0.0 K/mm3 (0.0-0.1) 01/08/21 Unknown Metamyelocytes # 0.0 K/mm3 01/08/21 Unknown Myelocytes # 0.0 K/mm3 01/08/21 Unknown Promyelocytes # 0.0 K/mm3 01/08/21 Unknown Blast Cells # 0.0 K/mm3 01/08/21 Unknown WBC Morphology Not Reportable 01/08/21 Unknown Hypersegmented Neuts Not Reportable 01/08/21 Unknown Hyposegmented Neuts Not Reportable 01/08/21 Unknown Hypogranular Neuts Not Reportable 01/08/21 Unknown Smudge Cells Not Reportable 01/08/21 Unknown Toxic Granulation Not Reportable 01/08/21 Unknown Toxic Vacuolation Not Reportable 01/08/21 Unknown Dohle Bodies Not Reportable 01/08/21 Unknown Pelger-Huet Anomaly Not Reportable 01/08/21 Unknown Mirian Rods Not Reportable 01/08/21 Unknown Platelet Estimate Consistent w auto 01/08/21 Unknown Clumped Platelets Not Reportable 01/08/21 Unknown Plt Clumps, EDTA Not Reportable 01/08/21 Unknown Large Platelets Not Reportable 01/08/21 Unknown Giant Platelets Not Reportable 01/08/21 Unknown Platelet Satelliting Not Reportable 01/08/21 Unknown Plt Morphology Comment Not Reportable 01/08/21 Unknown RBC Morphology Not Reportable 01/08/21 Unknown Dimorphic RBCs Not Reportable 01/08/21 Unknown Polychromasia Not Reportable 01/08/21 Unknown Hypochromasia Not Reportable 01/08/21 Unknown Poikilocytosis Not Reportable 01/08/21 Unknown Anisocytosis 1+ 01/08/21 Unknown Microcytosis Not Reportable 01/08/21 Unknown Macrocytosis Not Reportable 01/08/21 Unknown Spherocytes Not Reportable 01/08/21 Unknown Pappenheimer Bodies Not Reportable 01/08/21 Unknown Sickle Cells Not Reportable 01/08/21 Unknown Target Cells Not Reportable 01/08/21 Unknown Tear Drop Cells Not Reportable 01/08/21 Unknown Ovalocytes Not Reportable 01/08/21 Unknown Helmet Cells Not Reportable 01/08/21 Unknown Mart-Ursa Bodies Not Reportable 01/08/21 Unknown Enid Rings Not Reportable 01/08/21 Unknown Bluford Cells Not Reportable 01/08/21 Unknown Bite Cells Not Reportable 01/08/21 Unknown Crenated Cell Not Reportable 01/08/21 Unknown Elliptocytes Not Reportable 01/08/21 Unknown Acanthocytes (Spur) Not Reportable 01/08/21 Unknown Rouleaux Not Reportable 01/08/21 Unknown Hemoglobin C Crystals Not Reportable 01/08/21 Unknown Schistocytes Not Reportable 01/08/21 Unknown Malaria parasites Not Reportable 01/08/21 Unknown Dylon Bodies Not Reportable 01/08/21 Unknown Hem Pathologist Commnt No 01/08/21 Unknown PT 14.5 Sec. (12.2-14.9) 01/07/21 16:00 INR 1.08 (0.87-1.13) 01/07/21 16:00 APTT 49.4 Sec. (24.2-36.6) H 12/20/20 13:58 ABG pH 7.341 (7.320-7.450) 01/08/21 03:22 POC ABG pCO2 41.0 mmHg (32.0-48.0) 01/08/21 03:22 ABG pCO2 37.9 mm Hg 01/05/21 03:50 POC ABG pO2 71.3 mmHg (83-108) L 01/08/21 03:22 ABG pO2 136.8 mm Hg (80.0-90.0) H 01/05/21 03:50 POC ABG HCO3 21.7 01/08/21 03:22 ABG HCO3 22.4 mmol/L (20.0-26.0) 01/05/21 03:50 ABG O2 Saturation 93.8 (0-100) 01/08/21 03:22 ABG O2 Content 9.8 (0.0-44) 01/05/21 03:50 POC ABG Base Excess -3.8 01/08/21 03:22 ABG Base Excess -2.3 mmol/L (-2.0-3.0) L 01/05/21 03:50 ABG Hemoglobin 8.7 (12.0-17.5) L 01/08/21 03:22 ABG Oxyhemoglobin 92.2 (94-98) L 01/08/21 03:22 ABG Carboxyhemoglobin 1.5 % (0.0-5.0) 01/05/21 03:50 ABG Methemoglobin 0.3 (0.0-1.5) 01/08/21 03:22 ABG Sodium 125.9 mmol/L (136.0-145.0) L 01/08/21 03:22 ABG Potassium 3.9 mmol/L (3.40-4.50) 01/08/21 03:22 ABG Chloride 96.0 mmol/L (98-107) L 01/08/21 03:22 ABG Glucose 124 mg/dL (65-95) H 01/08/21 03:22 Oxyhemoglobin 96.7 % (95.0-99.0) 01/05/21 03:50 Carboxyhemoglobin 1.4 (0.5-1.5) 01/08/21 03:22 FiO2 50 % 01/05/21 03:50 FiO2 % 35.0 01/08/21 03:22 Sodium 129 mmol/L (137-145) L 01/08/21 Unknown Potassium 4.0 mmol/L (3.6-5.0) 01/08/21 Unknown Chloride 91.2 mmol/L (98-107) L 01/08/21 Unknown Carbon Dioxide 21 mmol/L (22-30) L 01/08/21 Unknown Anion Gap 21 mmol/L 01/08/21 Unknown BUN 91 mg/dL (9-20) H 01/08/21 Unknown Creatinine 4.0 mg/dL (0.8-1.3) H 01/08/21 Unknown Estimated GFR 15 ml/min 01/08/21 Unknown BUN/Creatinine Ratio 23 % 01/08/21 Unknown Glucose 115 mg/dL (75-100) H 01/08/21 Unknown POC Glucose 95 mg/dL (70-105) 01/08/21 11:03 Lactic Acid 1.70 mmol/L (0.7-2.0) 12/20/20 16:20 Calcium 8.6 mg/dL (8.4-10.2) 01/08/21 Unknown Ionized Calcium 3.3 mg/dL (4.8-5.6) L 12/27/20 14:40 Phosphorus 4.40 mg/dL (2.5-4.5) 01/08/21 Unknown Magnesium 2.10 mg/dL (1.7-2.3) 01/08/21 Unknown Total Bilirubin 0.50 mg/dL (0.1-1.2) 01/02/21 08:00 AST 47 units/L (5-40) H 01/02/21 08:00 ALT 26 units/L (7-56) 01/02/21 08:00 Alkaline Phosphatase 80 units/L (35-129) 01/02/21 08:00 Troponin T < 0.010 ng/mL (0.00-0.029) 12/20/20 13:58 Total Protein 5.0 g/dL (6.3-8.2) L 01/02/21 08:00 Albumin 1.6 g/dL (3.9-5) L 01/02/21 08:00 Albumin/Globulin Ratio 0.5 % 01/02/21 08:00 Triglycerides 166 mg/dL (2-149) H 01/08/21 Unknown Arterial Blood Glucose 124 mg/dL (65-95) H 01/08/21 03:22 Arterial Blood Ionized Calcium 4.7 mg/dL (4.6-5.3) 01/08/21 03:22 Urine Color Yellow (Yellow) 12/23/20 12:15 Urine Turbidity Cloudy (Clear) 12/23/20 12:15 Urine pH 5.0 (5.0-7.0) 12/23/20 12:15 Ur Specific Maybeury 1.019 (1.003-1.030) 12/23/20 12:15 Urine Protein <15 mg/dl mg/dL (Negative) 12/23/20 12:15 Urine Glucose (UA) Neg mg/dL (Negative) 12/23/20 12:15 Urine Ketones Neg mg/dL (Negative) 12/23/20 12:15 Urine Blood Sm (Negative) 12/23/20 12:15 Urine Nitrite Neg (Negative) 12/23/20 12:15 Urine Bilirubin Neg (Negative) 12/23/20 12:15 Urine Urobilinogen < 2.0 mg/dL (<2.0) 12/23/20 12:15 Ur Leukocyte Esterase Neg (Negative) 12/23/20 12:15 Urine WBC (Auto) 5.0 /HPF (0.0-6.0) 12/23/20 12:15 Urine RBC (Auto) 2.0 /HPF (0.0-6.0) 12/23/20 12:15 U Epithel Cells (Auto) < 1.0 /HPF (0-13.0) 12/20/20 Unknown Urine Bacteria (Auto) 1+ /HPF (Negative) 12/23/20 12:15 Triple Phos Crystals 2+ 12/23/20 12:15 Hyaline Casts 19 /LPF 12/20/20 Unknown Urine Mucus Few /HPF 12/23/20 12:15 Urine Eosinophils None seen (None Seen) 12/23/20 12:15 Urine Creatinine 78.1 mg/dL (0.1-20.0) H 12/23/20 12:15 Urine Sodium 13 mmol/L 12/23/20 12:15 Fraction Sodium Excret 0.2 12/23/20 12:15 Random Vancomycin 7.9 ug/mL (0-40.0) 12/23/20 12:15 Coronavirus (PCR) Negative (Negative) 12/21/20 Unknown Hepatitis A IgM Ab Non-reactive (NonReactive) 12/30/20 14:40 Hep Bs Antigen Non-reactive (Negative) 12/30/20 14:40 Hep B Core IgM Ab Non-reactive (NonReactive) 12/30/20 14:40 Hepatitis C Antibody Non-reactive (NonReactive) 12/30/20 14:40 Blood Type A NEGATIVE 01/06/21 11:00 Antibody Screen Negative 01/06/21 11:00 Crossmatch See Detail 01/06/21 11:00 Lawrence/IV: Voiding Method Indwelling Catheter Active Medications - Current Medications Current Medications: Generic Name Dose Route Start Last Admin Trade Name Freq PRN Reason Stop Dose Admin Acetaminophen 650 mg 12/21/20 11:51 12/25/20 20:35 Acetaminophen 650 Mg Rect Supp IN 650 mg Q4H PRN Administration TEMP >/=100.4 Lipase/Protease/Amylase 1 each 01/07/21 08:44 Lipase 10,500/Protease 25,000/Amylase 43,750 (Units) Dr Maharaj FEEDTUBE PRN PRN For Clogged Feeding Tube Bisacodyl 10 mg 12/30/20 11:00 01/08/21 09:18 Bisacodyl 10 Mg Rect Supp IN 10 mg QDAY ASCENCION Administration Dextrose 50 ml 12/24/20 10:49 Dextrose 50% In Water (25gm) 50 Ml Syringe IV Q30MIN PRN Hypoglycemia Protocol Famotidine 20 mg 12/26/20 10:00 01/08/21 09:18 Famotidine 20 Mg/2 Ml Inj IV 20 mg DAILY ASCENCION Administration Heparin Sodium (Porcine) 5,000 unit 01/06/21 14:00 01/08/21 05:26 Heparin 5,000 Unit/1 Ml Vial SUB-Q 5,000 unit Q8HR ASCENCION Administration Hydromorphone HCl 1 mg 01/06/21 15:58 Hydromorphone 1 Mg/1 Ml Inj IV Q4H PRN Pain , Severe (7-10) Hydrophilic Ointment 1 applic 12/20/20 21:58 Lip Therapy Vaseline TP Q2HR PRN Dry Lips Fentanyl Citrate 2,000 mcg in 100 mls @ 6.01 mls/hr 12/20/20 22:00 01/08/21 10:44 Fentanyl Drip Premix IV 4 mcg/kg/hr TITR ASCENCION 24.04 mls/hr Administration Protocol 1 MCG/KG/HR Propofol 1,000 mg in 100 mls @ 3.606 mls/hr 12/20/20 22:00 01/08/21 12:09 Diprivan 10 Mg/Ml IV 25 mcg/kg/min TITR ASCENCION 18.03 mls/hr Administration Protocol 5 MCG/KG/MIN NORepinephrine/NS 8 MG-250 ML 8 mg in 250 mls @ 3.75 mls/hr 12/21/20 09:00 01/02/21 06:15 Norepinephrine/Ns 8 Mg-250 Ml (Double Conc) IV 0 mcg/min TITRATE ASCENCION 0 mls/hr Titration Protocol 2 MCG/MIN Vasopressin 20 unit/ Sodium 101 mls @ 9.09 mls/hr 12/24/20 09:00 01/02/21 09:49 Chloride IV 0 units/min TITR ASCENCION 0 mls/hr Titration Protocol 0.03 UNITS/MIN Sodium Chloride 100 mls @ 999 mls/hr 01/03/21 10:21 Nacl 0.9% IV MARILU PRN Hypotension Dexmedetomidine HCl 400 mcg/ 104 mls @ 7.322 mls/hr 01/04/21 11:00 01/08/21 06:31 Sodium Chloride IV 0.4 mcg/kg/hr TITRATE ASCENCION 14.643 mls/hr Administration Protocol 0.2 MCG/KG/HR Amino Acids/Electrolytes/Dextrose 1,999.92 mls @ 83.33 mls/hr 01/07/21 20:00 01/07/21 19:55 Tpn Adult IV 01/08/21 19:59 83.33 mls/hr DAILY@1999 [facility] Administration Protocol Amino Acids/Electrolytes/Dextrose 1,999.92 mls @ 83.33 mls/hr 01/08/21 20:00 Tpn Adult IV 01/09/21 19:59 DAILY@1999 [facility] Protocol Insulin Human Regular 0 units 12/28/20 00:00 01/08/21 12:15 Insulin Regular, Human 100 Units/1 Ml SUB-Q Not Given Q6H [facility] Protocol Multi-Ingred Cream/Lotion/Oil/Oint 1 applic 12/20/20 21:58 01/03/21 01:13 Mineral Oil/Petrolatum, White Ophth Oint 3.5 Gm OU 1 applic Q4HR PRN Administration Dry Eye(s) Simple Syrup 15 ml 01/07/21 08:44 Simple Syrup 15 Ml FEEDTUBE PRN PRN Hypoglycemia Simple Syrup 30 ml 01/07/21 08:44 Simple Syrup 15 Ml FEEDTUBE PRN PRN Hypoglycemia Sodium Bicarbonate 325 mg 01/07/21 08:44 Sodium Bicarbonate 325 Mg Tab FEEDTUBE PRN PRN For Clogged Feeding Tube Sodium Chloride 10 ml 12/20/20 22:00 01/08/21 09:18 Sodium Chloride 0.9% 10 Ml Flush Syringe IV 10 ml BID ASCENCION Administration Sodium Chloride 10 ml 12/20/20 16:42 Sodium Chloride 0.9% 10 Ml Flush Syringe IV PRN PRN LINE FLUSH Nutrition/Malnutrition Assess - Dietary Evaluation Nutrition/Malnutrition Findings: Nutrition Notes Start: 12/21/20 09:06 Freq: Status: Active Protocol: Document 01/08/21 11:41 GER (Rec: 01/08/21 11:45 GER [id number]) Nutrition Notes Initial or Follow up Reassessment Current Diagnosis Acute Kidney Injury,Coronary Artery Disease,Sepsis, Hypertension,Small Bowel Obstruction,Hyperlipidemia Other Pertinent Diagnosis gangrenous small bowel, s/p small bowel ressection, peritonitis Current Diet TPN at 83.33ml/hr Labs/Tests Na 129 Cl 91.2 CO2 - 21 BUN 91 Cr 4 Triglycerides 166 Pertinent Medications Propofol at 14.424ml/hr ( provides 381 kcal) Height 6 ft Weight 140.8 kg [place] Body Weight (kg) 80.90 BMI 42.0 Weight Status Morbidly Obese Subjective/Other Information Day 16 CPN. Pt remains on vent support. Per RN report, pt not started on TF yet; TF orders were cancelled by MD yesterday. RN to clarify TF order with MD. Percent of energy/protein needs met: 100% energy 75% pro Burn Absent Trauma Absent #2 Nutrition Diagnosis Increased nutrient needs ( specify in comment below) Diagnosis Progress(for reassessment Continues documentation) #1 Nutrition Diagnosis Inadequate oral intake Diagnosis Progress(for reassessment Continues documentation) Is patient on ventilator? Yes Is Patient Ambulatory and/or Out of Bed No REE-([place] [place]-confined to bed) 2717.172 Kcal/Kg value to use for calculation 14 Approximate Energy Requirements Using 1971 kcal/Kg Calculation Used for Recommendations Kcal/kg Additional Notes Pro needs >1.2g/kg adjBW: > 133g/day Fluid needs per MD. Nutrition Intervention Nutrition Support: Continue CPN at 83.33ml/hr: MVI, 150mEq Na, 50%/50% chloride/acetate. Osmolality: 1695. Kcal 1,760 Protein (gm) 100 Carbohydrates (gm) 400 Fat (gm) 0 Fluid (mL) 2,000 Fiber (gm) 0 Goal #1 Meet needs as best as possible via CPN Follow-Up By: 01/09/21 Additional Comments Labs in am: CMP, Mg, Phos Clarify trickle feed TF order with MD/RN; vent status, propofol
[2021-01-08] MEDS: HYDROmorphone 1 MG/1 ML INJ IV PRN ×2 (15:09→20:12)
--- NOTE | 2021-01-08 18:08 | Progress Note ---
Assessment and Plan Impression * Acute kidney injury. * Incarcerated hernia with ischemic bowel. Status post bowel resection * Hypernatremia, now with hyponatremia * Fluid overload * Sepsis * Respiratory failure, intubated * Hyperkalemia * Metabolic Acidosis, Gap * Hypoalbuminemia * Anemia Recommendations * Started HD 12/30 for worsening renal function, electrolyte abnormalities, and volume control * S/p HD TTS, plan for session tomorrow due to fluid overload * Assess daily for needs of additional sessions * Hold IVF * Transfuse for hgb < 7 * TPN per nutrition/primary * Pressors prn to maintain MAP greater than 65 * Avoid nephrotoxins * Monitor fluid status and electrolytes * Strict I/O * Primary and consult notes reviewed Subjective Date of service: 01/08/21 Principal diagnosis: SBO and necrosis of large part of small intestine Interval history: Remains intubated. Sedated. Objective - Exam Narrative Exam: General: Sedated. Intubated HEENT: Oral mucosa moist Neck: Supple, no JVD Chest: Intubated, mechanical breath sounds Heart: RRR, S1 and S2, no pericardial rub Abdomen: Open abdomen Extremity: No peripheral cyanosis, edema Neurological: Sedated. Dermatology: No skin rash Psych: Unable to assess Musculoskeletal: No joint effusion - Vital Signs Vital signs: Vital Signs - 12hr 01/08/21 01/08/21 01/08/21 06:15 06:31 06:45 Temperature Pulse Rate 69 80 78 Pulse Rate [ From Monitor] Respiratory 24 22 24 Rate Blood Pressure 98/58 108/78 98/58 O2 Sat by Pulse 97 97 97 Oximetry 01/08/21 01/08/21 01/08/21 07:00 07:15 07:30 Temperature Pulse Rate 68 67 66 Pulse Rate [ From Monitor] Respiratory 24 24 24 Rate Blood Pressure 104/63 108/78 106/66 O2 Sat by Pulse 97 98 97 Oximetry 01/08/21 01/08/21 01/08/21 07:45 08:00 08:01 Temperature 98.1 F Pulse Rate 64 80 81 Pulse Rate [ From Monitor] Respiratory 24 16 16 Rate Blood Pressure 104/63 132/91 O2 Sat by Pulse 97 96 96 Oximetry 01/08/21 01/08/21 01/08/21 08:15 08:31 08:45 Temperature Pulse Rate 91 H 91 H 92 H Pulse Rate [ From Monitor] Respiratory 25 H 19 22 Rate Blood Pressure 106/66 152/100 152/100 O2 Sat by Pulse 96 96 95 Oximetry 01/08/21 01/08/21 01/08/21 09:01 09:15 09:31 Temperature Pulse Rate 86 84 80 Pulse Rate [ From Monitor] Respiratory 15 17 24 Rate Blood Pressure 147/85 147/85 120/72 O2 Sat by Pulse 95 95 95 Oximetry 01/08/21 01/08/21 01/08/21 09:45 10:00 10:15 Temperature Pulse Rate 73 64 65 Pulse Rate [ From Monitor] Respiratory 24 Rate Blood Pressure 120/72 117/47 117/47 O2 Sat by Pulse 98 97 98 Oximetry 01/08/21 01/08/21 01/08/21 10:30 10:45 11:00 Temperature Pulse Rate 64 65 65 Pulse Rate [ From Monitor] Respiratory 24 Rate Blood Pressure 107/56 117/47 109/61 O2 Sat by Pulse 97 98 99 Oximetry 01/08/21 01/08/21 01/08/21 11:15 11:31 11:45 Temperature Pulse Rate 83 84 82 Pulse Rate [ From Monitor] Respiratory 22 16 16 Rate Blood Pressure 109/61 109/61 109/61 O2 Sat by Pulse 97 95 97 Oximetry 01/08/21 01/08/21 01/08/21 11:49 12:00 12:01 Temperature 97.5 F L Pulse Rate 88 68 91 H Pulse Rate [ 91 H From Monitor] Respiratory 14 13 Rate Blood Pressure 109/61 165/103 O2 Sat by Pulse 100 99 99 Oximetry 01/08/21 01/08/21 01/08/21 12:15 12:31 12:45 Temperature Pulse Rate 82 78 75 Pulse Rate [ From Monitor] Respiratory 24 24 25 H Rate Blood Pressure 165/103 113/67 113/67 O2 Sat by Pulse 100 96 96 Oximetry 01/08/21 01/08/21 01/08/21 13:00 13:15 13:30 Temperature Pulse Rate 69 67 67 Pulse Rate [ From Monitor] Respiratory 23 Rate Blood Pressure 99/58 99/58 104/64 O2 Sat by Pulse 98 97 Oximetry 01/08/21 01/08/21 01/08/21 13:45 14:00 14:15 Temperature Pulse Rate 70 64 66 Pulse Rate [ From Monitor] Respiratory 24 Rate Blood Pressure 104/64 106/65 106/65 O2 Sat by Pulse 99 99 100 Oximetry 01/08/21 01/08/21 01/08/21 14:30 14:45 15:01 Temperature Pulse Rate 68 65 88 Pulse Rate [ From Monitor] Respiratory 24 24 13 Rate Blood Pressure 107/63 107/63 O2 Sat by Pulse 100 97 93 Oximetry 01/08/21 01/08/21 01/08/21 15:15 15:25 15:31 Temperature Pulse Rate 96 H 71 82 Pulse Rate [ From Monitor] Respiratory 24 12 Rate Blood Pressure 107/63 171/79 O2 Sat by Pulse 94 99 68 L Oximetry 01/08/21 01/08/21 01/08/21 15:45 16:00 16:01 Temperature 97.6 F Pulse Rate 76 77 87 Pulse Rate [ 87 From Monitor] Respiratory 18 19 19 Rate Blood Pressure 171/79 148/115 O2 Sat by Pulse 78 L 100 100 Oximetry 01/08/21 01/08/21 01/08/21 16:15 16:31 16:45 Temperature Pulse Rate 78 69 69 Pulse Rate [ From Monitor] Respiratory 22 24 24 Rate Blood Pressure 148/115 97/56 97/56 O2 Sat by Pulse 94 96 95 Oximetry 01/08/21 01/08/21 01/08/21 17:00 17:15 17:31 Temperature Pulse Rate 81 89 74 Pulse Rate [ From Monitor] Respiratory 13 18 16 Rate Blood Pressure 150/75 150/75 119/67 O2 Sat by Pulse 93 99 99 Oximetry 01/08/21 17:45 Temperature Pulse Rate 77 Pulse Rate [ From Monitor] Respiratory 14 Rate Blood Pressure 119/67 O2 Sat by Pulse 100 Oximetry - Lab 01/08/21 Unknown 01/08/21 Unknown Most recent lab results ABG pH 7.341 (7.320-7.450) 01/08/21 03:22 ABG pCO2 37.9 mm Hg 01/05/21 03:50 ABG pO2 136.8 mm Hg (80.0-90.0) H 01/05/21 03:50 ABG HCO3 22.4 mmol/L (20.0-26.0) 01/05/21 03:50 ABG O2 Saturation 93.8 (0-100) 01/08/21 03:22 Calcium 8.6 mg/dL (8.4-10.2) 01/08/21 Unknown Phosphorus 4.40 mg/dL (2.5-4.5) 01/08/21 Unknown Magnesium 2.10 mg/dL (1.7-2.3) 01/08/21 Unknown Urine Creatinine 78.1 mg/dL (0.1-20.0) H 12/23/20 12:15 Urine Sodium 13 mmol/L 12/23/20 12:15 Medications & Allergies - Medications Allergies/Adverse Reactions: Allergies Iodinated Contrast Media Adverse Reaction (Verified 09/04/18 14:20) Unknown Home Medications: Home Medications Medication Instructions Recorded Confirmed Last Taken Type Aspirin 81 mg PO DAILY #30 tab.chew 09/08/18 01/04/21 03/31/20 09:28 Rx AtorvaSTATin [Lipitor] 80 mg PO QHS tablet 05/08/19 01/04/21 03/28/20 Rx Albuterol Sulfate [Proventil Hfa] 13.4 gm IH Q6H #1 hfa.aer.ad 04/01/20 01/04/21 Unknown Rx Clopidogrel [Plavix] 75 mg PO DAILY #30 tablet 04/01/20 01/04/21 Unknown Rx Gabapentin 300 mg PO BID@0700,1800 30 Days 04/01/20 01/04/21 Unknown Rx capsule Gabapentin 600 mg PO QHS 30 Days capsule 04/01/20 01/04/21 Unknown Rx Metoprolol [Lopressor TAB] 25 mg PO BID #60 tablet 04/01/20 01/04/21 Unknown Rx [place]-3/Dha/Epa/Fish Oil [[place] 3 1 each PO BID #60 capsule 04/01/20 01/04/21 Unknown Rx 500 Softgel] Tiotropium [place] [Spiriva] 2 puff IH DAILY #30 cap.w.dev 04/01/20 01/04/21 Unknown Rx Ubidecarenone [Co Q-10] 10 mg PO BID #60 tab 04/01/20 01/04/21 03/29/20 Rx cilostazoL [Pletal] 50 mg PO BID 30 Days tablet 04/01/20 01/04/21 Unknown Rx oxyCODONE /ACETAMINOPHEN [Percocet 2 tab PO Q6H PRN tablet 04/01/20 01/04/21 Unknown Rx 5/325 mg] Phosphorus #1 [K-Phos Neutral] 250 mg PO QID 2 Days #8 tablet 09/14/20 01/04/21 Unknown Rx Active Medications: Generic Name Dose Route Start Last Admin Trade Name Freq PRN Reason Stop Dose Admin Acetaminophen 650 mg 12/21/20 11:51 12/25/20 20:35 Acetaminophen 650 Mg Rect Supp [place] 650 mg Q4H PRN Administration TEMP >/=100.4 Lipase/Protease/Amylase 1 each 01/07/21 08:44 Lipase 10,500/Protease 25,000/Amylase 43,750 (Units) Dr Cap FEEDTUBE PRN PRN For Clogged Feeding Tube Bisacodyl 10 mg 12/30/20 11:00 01/08/21 09:18 Bisacodyl 10 Mg Rect Supp [place] 10 mg QDAY ASCENCION Administration Dextrose 50 ml 12/24/20 10:49 Dextrose 50% In Water (25gm) 50 Ml Syringe IV Q30MIN PRN Hypoglycemia Protocol Famotidine 20 mg 12/26/20 10:00 01/08/21 09:18 Famotidine 20 Mg/2 Ml Inj IV 20 mg DAILY ASCENCION Administration Heparin Sodium (Porcine) 5,000 unit 01/06/21 14:00 01/08/21 13:33 Heparin 5,000 Unit/1 Ml Vial SUB-Q 5,000 unit Q8HR ASCENCION Administration Hydromorphone HCl 1 mg 01/06/21 15:58 01/08/21 15:09 Hydromorphone 1 Mg/1 Ml Inj IV 1 mg Q4H PRN Administration Pain , Severe (7-10) Hydrophilic Ointment 1 applic 12/20/20 21:58 Lip Therapy Vaseline TP Q2HR PRN Dry Lips Fentanyl Citrate 2,000 mcg in 100 mls @ 6.01 mls/hr 12/20/20 22:00 01/08/21 16:48 Fentanyl Drip Premix IV 4 mcg/kg/hr TITR ASCENCION 24.04 mls/hr Administration Protocol 1 MCG/KG/HR Propofol 1,000 mg in 100 mls @ 3.606 mls/hr 12/20/20 22:00 01/08/21 18:03 Diprivan 10 Mg/Ml IV 25 mcg/kg/min TITR ASCENCION 18.03 mls/hr Titration Protocol 5 MCG/KG/MIN NORepinephrine/NS 8 MG-250 ML 8 mg in 250 mls @ 3.75 mls/hr 12/21/20 09:00 01/02/21 06:15 Norepinephrine/Ns 8 Mg-250 Ml (Double Conc) IV 0 mcg/min TITRATE ASCENCION 0 mls/hr Titration Protocol 2 MCG/MIN Vasopressin 20 unit/ Sodium 101 mls @ 9.09 mls/hr 12/24/20 09:00 01/02/21 09:49 Chloride IV 0 units/min TITR ASCENCION 0 mls/hr Titration Protocol 0.03 UNITS/MIN Sodium Chloride 100 mls @ 999 mls/hr 01/03/21 10:21 Nacl 0.9% IV MARILU PRN Hypotension Dexmedetomidine HCl 400 mcg/ 104 mls @ 7.322 mls/hr 01/04/21 11:00 01/08/21 18:06 Sodium Chloride IV 0.8 mcg/kg/hr TITRATE ASCENCION 29.286 mls/hr Administration Protocol 0.2 MCG/KG/HR Amino Acids/Electrolytes/Dextrose 1,999.92 mls @ 83.33 mls/hr 01/07/21 20:00 01/07/21 19:55 Tpn Adult IV 01/08/21 19:59 83.33 mls/hr DAILY@1999 [facility] Administration Protocol Amino Acids/Electrolytes/Dextrose 1,999.92 mls @ 83.33 mls/hr 01/08/21 20:00 Tpn Adult IV 01/09/21 19:59 DAILY@1999 [facility] Protocol Insulin Human Regular 0 units 12/28/20 00:00 01/08/21 17:25 Insulin Regular, Human 100 Units/1 Ml SUB-Q Not Given Q6H [facility] Protocol Multi-Ingred Cream/Lotion/Oil/Oint 1 applic 12/20/20 21:58 01/03/21 01:13 Mineral Oil/Petrolatum, White Ophth Oint 3.5 Gm OU 1 applic Q4HR PRN Administration Dry Eye(s) Simple Syrup 15 ml 01/07/21 08:44 Simple Syrup 15 Ml FEEDTUBE PRN PRN Hypoglycemia Simple Syrup 30 ml 01/07/21 08:44 Simple Syrup 15 Ml FEEDTUBE PRN PRN Hypoglycemia Sodium Bicarbonate 325 mg 01/07/21 08:44 Sodium Bicarbonate 325 Mg Tab FEEDTUBE PRN PRN For Clogged Feeding Tube Sodium Chloride 10 ml 12/20/20 22:00 01/08/21 09:18 Sodium Chloride 0.9% 10 Ml Flush Syringe IV 10 ml BID ASCENCION Administration Sodium Chloride 10 ml 12/20/20 16:42 Sodium Chloride 0.9% 10 Ml Flush Syringe IV PRN PRN LINE FLUSH
[2021-01-08] MEDS ORDERED: TOTAL PARENTERAL NUTRITION 1,999.92 ML IV SCH (20:00)
[2021-01-09] MEDS: fentaNYL DRIP Premix 2,000 MCG/100 ML BAG IV SCH ×7 (00:03→23:36)
[2021-01-09] MEDS: INSULIN REGULAR, HUMAN 100 UNITS/1 ML SUB-Q SCH ×4 (00:05→18:06)
[2021-01-09] MEDS: HYDROmorphone 1 MG/1 ML INJ IV PRN ×3 (04:10→17:45)
[2021-01-09] MEDS: HEPARIN 5,000 UNIT/1 ML VIAL SUB-Q SCH ×3 (06:05→21:07)
--- NOTE | 2021-01-09 09:17 | Progress Note ---
Assessment and Plan Impression * Acute kidney injury secondary to ATN --HD initiated December 30 * Incarcerated hernia with ischemic bowel. Status post bowel resection * Hypernatremia, now with hyponatremia * Fluid overload * Sepsis * Respiratory failure, intubated * Hyperkalemia * Metabolic Acidosis, Gap * Hypoalbuminemia * Anemia Recommendations * No acute indication for HD today. Patient with good UOP - clear yellow * Maintain haley cathteter for strict I/O * Will assess for HD need again tomorrow AM * Transfuse for Hb < 7 * TPN per nutrition/primary * Pressors prn to maintain MAP greater than 65 * Avoid nephrotoxins * Monitor fluid status and electrolytes * Primary and consult notes reviewed Subjective Date of service: 01/09/21 Principal diagnosis: SBO and necrosis of large part of small intestine Interval history: Remains intubated. FiO2 35%. TV 550, PEEP 8 Objective - Vital Signs Vital signs: Vital Signs - 12hr 01/08/21 01/08/21 01/08/21 21:30 21:45 22:00 Temperature Pulse Rate 64 64 64 Pulse Rate [ From Monitor] Respiratory 24 24 24 Rate Blood Pressure 95/50 95/50 100/55 O2 Sat by Pulse 97 97 97 Oximetry 01/08/21 01/08/21 01/08/21 22:15 22:30 22:41 Temperature Pulse Rate 64 64 64 Pulse Rate [ From Monitor] Respiratory 24 24 24 Rate Blood Pressure 100/55 104/55 104/55 O2 Sat by Pulse 97 98 98 Oximetry 01/08/21 01/08/21 01/08/21 22:45 23:00 23:12 Temperature Pulse Rate 64 63 64 Pulse Rate [ From Monitor] Respiratory 24 24 Rate Blood Pressure 104/55 99/53 99/53 O2 Sat by Pulse 92 97 96 Oximetry 01/08/21 01/08/21 01/08/21 23:15 23:30 23:45 Temperature Pulse Rate 64 65 71 Pulse Rate [ From Monitor] Respiratory 23 24 24 Rate Blood Pressure 99/53 96/52 96/52 O2 Sat by Pulse 93 90 81 L Oximetry 01/09/21 01/09/21 01/09/21 00:00 00:01 00:15 Temperature 97.7 F Pulse Rate 77 82 72 Pulse Rate [ 68 From Monitor] Respiratory 24 18 23 Rate Blood Pressure 96/52 148/64 O2 Sat by Pulse 98 98 97 Oximetry 01/09/21 01/09/21 01/09/21 00:31 00:45 01:00 Temperature Pulse Rate 70 65 64 Pulse Rate [ From Monitor] Respiratory 24 24 24 Rate Blood Pressure 108/57 108/57 97/53 O2 Sat by Pulse 90 91 90 Oximetry 01/09/21 01/09/21 01/09/21 01:15 01:30 01:45 Temperature Pulse Rate 64 62 63 Pulse Rate [ From Monitor] Respiratory 24 24 24 Rate Blood Pressure 97/53 102/53 97/53 O2 Sat by Pulse 90 95 97 Oximetry 01/09/21 01/09/21 01/09/21 02:00 02:15 02:30 Temperature Pulse Rate 63 63 62 Pulse Rate [ From Monitor] Respiratory 24 24 24 Rate Blood Pressure 103/57 102/53 105/54 O2 Sat by Pulse 96 97 95 Oximetry 01/09/21 01/09/21 01/09/21 02:45 03:01 03:02 Temperature Pulse Rate 73 73 73 Pulse Rate [ From Monitor] Respiratory 22 16 Rate Blood Pressure 103/57 103/57 98/63 O2 Sat by Pulse 97 96 Oximetry 01/09/21 01/09/21 01/09/21 03:15 03:30 03:35 Temperature 97.1 F L Pulse Rate 69 72 Pulse Rate [ From Monitor] Respiratory 24 24 Rate Blood Pressure 121/71 111/69 O2 Sat by Pulse 98 97 Oximetry 01/09/21 01/09/21 01/09/21 03:45 04:00 04:01 Temperature Pulse Rate 86 98 H 99 H Pulse Rate [ 68 From Monitor] Respiratory 24 24 14 Rate Blood Pressure 111/69 161/127 O2 Sat by Pulse 95 99 100 Oximetry 01/09/21 01/09/21 01/09/21 04:15 04:31 04:45 Temperature Pulse Rate 73 70 67 Pulse Rate [ From Monitor] Respiratory 24 24 24 Rate Blood Pressure 161/127 109/64 109/64 O2 Sat by Pulse 97 97 98 Oximetry 01/09/21 01/09/21 01/09/21 05:00 05:15 05:30 Temperature Pulse Rate 64 65 64 Pulse Rate [ From Monitor] Respiratory 24 24 24 Rate Blood Pressure 91/55 91/55 100/56 O2 Sat by Pulse 96 97 99 Oximetry 01/09/21 01/09/21 01/09/21 05:45 06:01 06:15 Temperature Pulse Rate 63 79 66 Pulse Rate [ From Monitor] Respiratory 24 22 24 Rate Blood Pressure 100/56 154/79 154/79 O2 Sat by Pulse 98 95 97 Oximetry 01/09/21 01/09/21 01/09/21 06:30 06:45 07:00 Temperature Pulse Rate 67 65 65 Pulse Rate [ From Monitor] Respiratory 24 24 24 Rate Blood Pressure 128/64 154/79 115/60 O2 Sat by Pulse 97 97 99 Oximetry 01/09/21 01/09/21 01/09/21 07:15 07:30 07:45 Temperature Pulse Rate 67 64 67 Pulse Rate [ From Monitor] Respiratory 24 24 24 Rate Blood Pressure 115/60 120/61 120/61 O2 Sat by Pulse 97 99 98 Oximetry 01/09/21 01/09/21 01/09/21 08:00 08:02 08:15 Temperature 97.8 F Pulse Rate 70 67 71 Pulse Rate [ From Monitor] Respiratory 24 24 Rate Blood Pressure 133/66 133/66 133/66 O2 Sat by Pulse 98 96 94 Oximetry 01/09/21 08:30 Temperature Pulse Rate 69 Pulse Rate [ From Monitor] Respiratory 24 Rate Blood Pressure 118/61 O2 Sat by Pulse 99 Oximetry - General Appearance General appearance: well-developed, well-nourished EENT: ATNC, other (ETT in place) Respiratory: Present: Clear to Ascultation Cardiology: regular, S1S2 Gastrointestinal: absent bowel sounds Integumentary: no rash, warm and dry Musculoskeletal: other (1+ edema) - Lab 01/08/21 Unknown 01/09/21 08:45 Most recent lab results ABG pH 7.341 (7.320-7.450) 01/08/21 03:22 ABG pCO2 37.9 mm Hg 01/05/21 03:50 ABG pO2 136.8 mm Hg (80.0-90.0) H 01/05/21 03:50 ABG HCO3 22.4 mmol/L (20.0-26.0) 01/05/21 03:50 ABG O2 Saturation 93.8 (0-100) 01/08/21 03:22 Calcium 8.6 mg/dL (8.4-10.2) 01/08/21 Unknown Phosphorus 4.40 mg/dL (2.5-4.5) 01/08/21 Unknown Magnesium 2.10 mg/dL (1.7-2.3) 01/08/21 Unknown Urine Creatinine 78.1 mg/dL (0.1-20.0) H 12/23/20 12:15 Urine Sodium 13 mmol/L 12/23/20 12:15 Medications & Allergies - Medications Allergies/Adverse Reactions: Allergies Iodinated Contrast Media Adverse Reaction (Verified 09/04/18 14:20) Unknown Home Medications: Home Medications Medication Instructions Recorded Confirmed Last Taken Type Aspirin 81 mg PO DAILY #30 tab.chew 09/08/18 01/04/21 03/31/20 09:28 Rx AtorvaSTATin [Lipitor] 80 mg PO QHS tablet 05/08/19 01/04/21 03/28/20 Rx Albuterol Sulfate [Proventil Hfa] 13.4 gm IH Q6H #1 hfa.aer.ad 04/01/20 01/04/21 Unknown Rx Clopidogrel [Plavix] 75 mg PO DAILY #30 tablet 04/01/20 01/04/21 Unknown Rx Gabapentin 300 mg PO BID@0700,1800 30 Days 04/01/20 01/04/21 Unknown Rx capsule Gabapentin 600 mg PO QHS 30 Days capsule 04/01/20 01/04/21 Unknown Rx Metoprolol [Lopressor TAB] 25 mg PO BID #60 tablet 04/01/20 01/04/21 Unknown Rx [place]-3/Dha/Epa/Fish Oil [[place] 3 1 each PO BID #60 capsule 04/01/20 01/04/21 Unknown Rx 500 Softgel] Tiotropium [place] [Spiriva] 2 puff IH DAILY #30 cap.w.dev 04/01/20 01/04/21 Unknown Rx Ubidecarenone [Co Q-10] 10 mg PO BID #60 tab 04/01/20 01/04/21 03/29/20 Rx cilostazoL [Pletal] 50 mg PO BID 30 Days tablet 04/01/20 01/04/21 Unknown Rx oxyCODONE /ACETAMINOPHEN [Percocet 2 tab PO Q6H PRN tablet 04/01/20 01/04/21 Unknown Rx 5/325 mg] Phosphorus #1 [K-Phos Neutral] 250 mg PO QID 2 Days #8 tablet 09/14/20 01/04/21 Unknown Rx Active Medications: Generic Name Dose Route Start Last Admin Trade Name Freq PRN Reason Stop Dose Admin Acetaminophen 650 mg 12/21/20 11:51 12/25/20 20:35 Acetaminophen 650 Mg Rect Supp [place] 650 mg Q4H PRN Administration TEMP >/=100.4 Lipase/Protease/Amylase 1 each 01/07/21 08:44 Lipase 10,500/Protease 25,000/Amylase 43,750 (Units) Dr Cap FEEDTUBE PRN PRN For Clogged Feeding Tube Bisacodyl 10 mg 12/30/20 11:00 01/08/21 09:18 Bisacodyl 10 Mg Rect Supp [place] 10 mg QDAY ASCENCION Administration Dextrose 50 ml 12/24/20 10:49 Dextrose 50% In Water (25gm) 50 Ml Syringe IV Q30MIN PRN Hypoglycemia Protocol Famotidine 20 mg 12/26/20 10:00 01/08/21 09:18 Famotidine 20 Mg/2 Ml Inj IV 20 mg DAILY ASCENCION Administration Heparin Sodium (Porcine) 5,000 unit 01/06/21 14:00 01/09/21 06:05 Heparin 5,000 Unit/1 Ml Vial SUB-Q 5,000 unit Q8HR ASCENCION Administration Hydromorphone HCl 1 mg 01/06/21 15:58 01/09/21 04:10 Hydromorphone 1 Mg/1 Ml Inj IV 1 mg Q4H PRN Administration Pain , Severe (7-10) Hydrophilic Ointment 1 applic 12/20/20 21:58 Lip Therapy Vaseline TP Q2HR PRN Dry Lips Fentanyl Citrate 2,000 mcg in 100 mls @ 6.01 mls/hr 12/20/20 22:00 01/09/21 07:39 Fentanyl Drip Premix IV 4 mcg/kg/hr TITR ASCENCION 24.04 mls/hr Administration Protocol 1 MCG/KG/HR Propofol 1,000 mg in 100 mls @ 3.606 mls/hr 12/20/20 22:00 01/09/21 04:16 Diprivan 10 Mg/Ml IV 20 mcg/kg/min TITR ASCENCION 14.424 mls/hr Administration Protocol 5 MCG/KG/MIN NORepinephrine/NS 8 MG-250 ML 8 mg in 250 mls @ 3.75 mls/hr 12/21/20 09:00 01/02/21 06:15 Norepinephrine/Ns 8 Mg-250 Ml (Double Conc) IV 0 mcg/min TITRATE ASCENCION 0 mls/hr Titration Protocol 2 MCG/MIN Vasopressin 20 unit/ Sodium 101 mls @ 9.09 mls/hr 12/24/20 09:00 01/02/21 09:49 Chloride IV 0 units/min TITR ASCENCION 0 mls/hr Titration Protocol 0.03 UNITS/MIN Sodium Chloride 100 mls @ 999 mls/hr 01/03/21 10:21 Nacl 0.9% IV MARILU PRN Hypotension Dexmedetomidine HCl 400 mcg/ 104 mls @ 7.322 mls/hr 01/04/21 11:00 01/09/21 04:14 Sodium Chloride IV 0.6 mcg/kg/hr TITRATE ASCENCION 21.965 mls/hr Administration Protocol 0.2 MCG/KG/HR Amino Acids/Electrolytes/Dextrose 1,999.92 mls @ 83.33 mls/hr 01/08/21 20:00 01/08/21 20:02 Tpn Adult IV 01/09/21 19:59 83.33 mls/hr DAILY@1999 [facility] Administration Protocol Insulin Human Regular 0 units 12/28/20 00:00 01/09/21 06:40 Insulin Regular, Human 100 Units/1 Ml SUB-Q Not Given Q6H [facility] Protocol Multi-Ingred Cream/Lotion/Oil/Oint 1 applic 12/20/20 21:58 01/03/21 01:13 Mineral Oil/Petrolatum, White Ophth Oint 3.5 Gm OU 1 applic Q4HR PRN Administration Dry Eye(s) Simple Syrup 15 ml 01/07/21 08:44 Simple Syrup 15 Ml FEEDTUBE PRN PRN Hypoglycemia Simple Syrup 30 ml 01/07/21 08:44 Simple Syrup 15 Ml FEEDTUBE PRN PRN Hypoglycemia Sodium Bicarbonate 325 mg 01/07/21 08:44 Sodium Bicarbonate 325 Mg Tab FEEDTUBE PRN PRN For Clogged Feeding Tube Sodium Chloride 10 ml 12/20/20 22:00 01/08/21 21:37 Sodium Chloride 0.9% 10 Ml Flush Syringe IV 10 ml BID ASCENCION Administration Sodium Chloride 10 ml 12/20/20 16:42 Sodium Chloride 0.9% 10 Ml Flush Syringe IV PRN PRN LINE FLUSH
[2021-01-09 09:19] LABS: Albumin 1.6 g/dL (3.9-5); Calcium 8.7 mg/dL (8.4-10.2)
[2021-01-09] MEDS ORDERED: LIPASE 10,500/PROTEASE 25,000/AMYLASE 43,750 (UNITS) DR CAP FEEDTUBE PRN (10:07)
[2021-01-09] MEDS ORDERED: SODIUM BICARBONATE 325 MG TAB FEEDTUBE PRN (10:07)
[2021-01-09] MEDS ORDERED: SIMPLE SYRUP 15 ML FEEDTUBE PRN ×2 (10:07)
--- NOTE | 2021-01-09 10:38 | Progress Note ---
Assessment and Plan Assessment and plan: 60-year-old male with obesity, hypertension, nicotine dependence, PVD s/p stent placement on dual antiplatelet therapy, hyperlipidemia, OA, GERD, ventral hernia and small bowel obstruction who was admitted with small bowel obstruction and peritonitis Septic Shock, POA (presented with leukocytosis, tachycardia, tachypnea,febrile and evidence of peritonitis) Problem List COVID-19 PUI, ruled out Small bowel obstruction with peritonitis Ventral hernia s/p repair Leukocytosis Anemia Hyponatremia Hypochloremia Acute Kidney Injury, on HD Obesity Hypertension Nicotine dependence CAD s/p stent placement Hyperlipidemia Osteoarthritis GERD medical non adherence NEURO- uremic; sedated; generalized weakness; post op pain; high risk delirium opens eyes; nods appropriately PERRLA generalized weakness currently on prop, fentanyl and dex plan to wean fentanyl today to off; pt responds well to dilaudid RASS goal neg 4 PRN tylenol for pain NOK mother - up date on plan of care daily CV- nap SR MAP 80's SR-ST no pressors RESP- post op resp failure remains ventilated on CMV [id number] once we determine source of hgb drop- we should work on weaning to PS as tolerated intubated 12/20 ABG daily and PRN GI- sp SBO with exlap repair; protein isha malnutrition TF at 10 TPN LAURA x 2/abd drain with 190 ml out over 24 horus- serosang in nature continue to trend output Gen surg following stool pos for blood- post abd surgery CT chest abd and pelvis today with PO and IV contrast- once obtained discuss hgb and findings with gen surg and or GI to evaluate the source of downtrending hgb BM today pepcid scheduled reglan daily AL dulcolox daily - JONI requiring HD; hyponatremia; hyperK; uremia haley strict I/O trending electrolytes nephrology following no HD today- usually M/W/F given contrast load today Dr Cherry has requested HD tomorrow. pt was net pos 55 over the last 24 hours trend electrolytes given HD HEME- post op anemia SQH RBC x 2 on 01/03; RBC x 1 on 01/06 and RBC x 1 on 01/07 -- see hgb trend; not appropriate response CT C/A/P with contrast today per Dr Cherry Plt normal No bleeding on exam ID- leukocytosis ID following no antibiotics at this time trend WBC and temp curve consider rotation of vascath if concern for infection / covid neg 6/2 Hep. neg wound care per medical staffing coordinator ENDO- DM2; hyperglycemia; obese SSI Q6H Disposition Plan: AYDEK mother; per casemanagement Total Time Spent with Patient (Minutes): 60 History Interval history: 60-year-old male with obesity, hypertension, nicotine dependence, PVD s/p stent placement on dual antiplatelet therapy, hyperlipidemia, OA, GERD, ventral hernia and small bowel obstruction who was admitted with small bowel obstruction and peritonitis Pt had presented to the ER 12/20/20 with intractable abd pain and was sent emergently to surgery. No acute events overnight HPI -12/20 CT abdomen/pelvis showed high-grade small bowel obstruction related to severe complex ventral abdominal wall hernias, progressed in appearance from prior exam from 09/12/2020 without evidence of pneumonitis or pneumoperitoneum, patchy bibasilar airspace disease concern for atypical infectious process/pneumonitis --s/p ex lap, extensive lysis of adhesions, small bowel resection (removal of 70 cm necrotic small bowel segment), peritoneal lavage and ABThera abdominal wound VAC placement -12/23 s/p abdominal exploration, small bowel resection, peritoneal lavage, ABThera wound VAC placement -12/26 s/p ex lap, small bowel resection, peritoneal lavage, ABThera wound VAC placement -12/27 s/p ex lap, extensive lysis of adhesions, small bowel resection (removal of 70 cm necrotic small bowel segment), peritoneal lavage and ABThera abdominal wound VAC placement. -12/29 s/p ex lap, small bowel resection, small bowel anastomosis and ABThera wound VAC placement -01/01 s/p myocutaneous flap creation, abdominal wall component separation and placement of phasix mesh with surgery yesterday where his abdomen was closed and 2 LAURA drains were placed on either side of his midline between fascia and SQ tissue. -12/30 initiated on HD by nephro -01/03 RBC x2 -01/06 RBC -01/07 RBC -01/09 stool pos for guiac; response to RBC has been minimal/ likely not dilutional -- discussed with Dr Cherry- pt for CT today Hospitalist Physical - Constitutional Vitals: Temp Pulse Resp BP Pulse Ox 97.8 F 66 24 111/63 97 01/09/21 08:00 01/09/21 10:31 01/09/21 10:31 01/09/21 10:31 01/09/21 10:31 General appearance: Present: mild distress, well-nourished, obese, other (s edated) - EENT Eyes: Present: PERRL, EOM intact ENT: hearing intact - Neck Neck: Present: supple - Respiratory Respiratory effort: normal Respiratory: bilateral: diminished - Cardiovascular Rhythm: regular Heart Sounds: Present: S1 & S2 Peripheral Pulses: within normal limits - Abdominal General gastrointestinal: distended, hypoactive bowel sounds - Integumentary Integumentary: Present: clear, warm - Allied Health Allied health notes reviewed: nursing, RT HEART Score - HEART Score History: Slightly suspicious EKG: Normal Age: < 45 Risk factors: No known risk factors Troponin: Troponin T < 0.010 ng/mL (0.00-0.029) 12/20/20 13:58 Troponin: < normal limit HEART Score: 0 - Critical Actions Critical Actions: 0-3 pts:0.9-1.7%risk of adverse cardiac event.Candidate for discharge Results - Labs CBC & Chem 7: 01/09/21 10:10 01/09/21 08:45 Labs: Laboratory Last Values WBC 15.2 K/mm3 (4.5-11.0) H 01/08/21 Unknown RBC 2.62 M/mm3 (3.65-5.03) L 01/08/21 Unknown Hgb 7.6 gm/dl (11.8-15.2) L 01/08/21 Unknown Hct 22.7 % (35.5-45.6) L 01/08/21 Unknown MCV 87 fl (84-94) 01/08/21 Unknown MCH 29 pg (28-32) 01/08/21 Unknown MCHC 33 % (32-34) 01/08/21 Unknown RDW 16.7 % (13.2-15.2) H 01/08/21 Unknown Plt Count 242 K/mm3 (140-440) 01/08/21 Unknown Add Manual Diff Complete 01/08/21 Unknown Total Counted 100 01/08/21 Unknown Seg Neutrophils % Payable Representative 01/08/21 Unknown Seg Neuts % (Manual) 95.0 % (40.0-70.0) H 01/08/21 Unknown Band Neutrophils % 1.0 % 01/08/21 Unknown Lymphocytes % (Manual) 3.0 % (13.4-35.0) L 01/08/21 Unknown Monocytes % (Manual) 1.0 % (0.0-7.3) 01/08/21 Unknown Nucleated RBC % Not Reportable 01/08/21 Unknown Seg Neutrophils # Man 14.4 K/mm3 (1.8-7.7) H 01/08/21 Unknown Band Neutrophils # 0.2 K/mm3 01/08/21 Unknown Lymphocytes # (Manual) 0.5 K/mm3 (1.2-5.4) L 01/08/21 Unknown Abs React Lymphs (Man) 0.0 K/mm3 01/08/21 Unknown Monocytes # (Manual) 0.2 K/mm3 (0.0-0.8) 01/08/21 Unknown Eosinophils # (Manual) 0.0 K/mm3 (0.0-0.4) 01/08/21 Unknown Basophils # (Manual) 0.0 K/mm3 (0.0-0.1) 01/08/21 Unknown Metamyelocytes # 0.0 K/mm3 01/08/21 Unknown Myelocytes # 0.0 K/mm3 01/08/21 Unknown Promyelocytes # 0.0 K/mm3 01/08/21 Unknown Blast Cells # 0.0 K/mm3 01/08/21 Unknown WBC Morphology Not Reportable 01/08/21 Unknown Hypersegmented Neuts Not Reportable 01/08/21 Unknown Hyposegmented Neuts Not Reportable 01/08/21 Unknown Hypogranular Neuts Not Reportable 01/08/21 Unknown Smudge Cells Not Reportable 01/08/21 Unknown Toxic Granulation Not Reportable 01/08/21 Unknown Toxic Vacuolation Not Reportable 01/08/21 Unknown Dohle Bodies Not Reportable 01/08/21 Unknown Pelger-Huet Anomaly Not Reportable 01/08/21 Unknown Mirian Rods Not Reportable 01/08/21 Unknown Platelet Estimate Consistent w auto 01/08/21 Unknown Clumped Platelets Not Reportable 01/08/21 Unknown Plt Clumps, EDTA Not Reportable 01/08/21 Unknown Large Platelets Not Reportable 01/08/21 Unknown Giant Platelets Not Reportable 01/08/21 Unknown Platelet Satelliting Not Reportable 01/08/21 Unknown Plt Morphology Comment Not Reportable 01/08/21 Unknown RBC Morphology Not Reportable 01/08/21 Unknown Dimorphic RBCs Not Reportable 01/08/21 Unknown Polychromasia Not Reportable 01/08/21 Unknown Hypochromasia Not Reportable 01/08/21 Unknown Poikilocytosis Not Reportable 01/08/21 Unknown Anisocytosis 1+ 01/08/21 Unknown Microcytosis Not Reportable 01/08/21 Unknown Macrocytosis Not Reportable 01/08/21 Unknown Spherocytes Not Reportable 01/08/21 Unknown Pappenheimer Bodies Not Reportable 01/08/21 Unknown Sickle Cells Not Reportable 01/08/21 Unknown Target Cells Not Reportable 01/08/21 Unknown Tear Drop Cells Not Reportable 01/08/21 Unknown Ovalocytes Not Reportable 01/08/21 Unknown Helmet Cells Not Reportable 01/08/21 Unknown Mart-Ayden Bodies Not Reportable 01/08/21 Unknown [place] Rings Not Reportable 01/08/21 Unknown Jonathan Cells Not Reportable 01/08/21 Unknown Bite Cells Not Reportable 01/08/21 Unknown Crenated Cell Not Reportable 01/08/21 Unknown Elliptocytes Not Reportable 01/08/21 Unknown Acanthocytes (Spur) Not Reportable 01/08/21 Unknown Rouleaux Not Reportable 01/08/21 Unknown Hemoglobin C Crystals Not Reportable 01/08/21 Unknown Schistocytes Not Reportable 01/08/21 Unknown Malaria parasites Not Reportable 01/08/21 Unknown Dylon Bodies Not Reportable 01/08/21 Unknown Hem Pathologist Commnt No 01/08/21 Unknown PT 14.5 Sec. (12.2-14.9) 01/07/21 16:00 INR 1.08 (0.87-1.13) 01/07/21 16:00 APTT 49.4 Sec. (24.2-36.6) H 12/20/20 13:58 ABG pH 7.341 (7.320-7.450) 01/08/21 03:22 POC ABG pCO2 41.0 mmHg (32.0-48.0) 01/08/21 03:22 ABG pCO2 37.9 mm Hg 01/05/21 03:50 POC ABG pO2 71.3 mmHg (83-108) L 01/08/21 03:22 ABG pO2 136.8 mm Hg (80.0-90.0) H 01/05/21 03:50 POC ABG HCO3 21.7 01/08/21 03:22 ABG HCO3 22.4 mmol/L (20.0-26.0) 01/05/21 03:50 ABG O2 Saturation 93.8 (0-100) 01/08/21 03:22 ABG O2 Content 9.8 (0.0-44) 01/05/21 03:50 POC ABG Base Excess -3.8 01/08/21 03:22 ABG Base Excess -2.3 mmol/L (-2.0-3.0) L 01/05/21 03:50 ABG Hemoglobin 8.7 (12.0-17.5) L 01/08/21 03:22 ABG Oxyhemoglobin 92.2 (94-98) L 01/08/21 03:22 ABG Carboxyhemoglobin 1.5 % (0.0-5.0) 01/05/21 03:50 ABG Methemoglobin 0.3 (0.0-1.5) 01/08/21 03:22 ABG Sodium 125.9 mmol/L (136.0-145.0) L 01/08/21 03:22 ABG Potassium 3.9 mmol/L (3.40-4.50) 01/08/21 03:22 ABG Chloride 96.0 mmol/L (98-107) L 01/08/21 03:22 ABG Glucose 124 mg/dL (65-95) H 01/08/21 03:22 Oxyhemoglobin 96.7 % (95.0-99.0) 01/05/21 03:50 Carboxyhemoglobin 1.4 (0.5-1.5) 01/08/21 03:22 FiO2 50 % 01/05/21 03:50 FiO2 % 35.0 01/08/21 03:22 Sodium 129 mmol/L (137-145) L 01/09/21 08:45 Potassium 4.1 mmol/L (3.6-5.0) 01/09/21 08:45 Chloride 92.7 mmol/L (98-107) L 01/09/21 08:45 Carbon Dioxide 19 mmol/L (22-30) L 01/09/21 08:45 Anion Gap 21 mmol/L 01/09/21 08:45 BUN 105 mg/dL (9-20) H 01/09/21 08:45 Creatinine 4.4 mg/dL (0.8-1.3) H 01/09/21 08:45 Estimated GFR 14 ml/min 01/09/21 08:45 BUN/Creatinine Ratio 24 % 01/09/21 08:45 Glucose 107 mg/dL (75-100) H 01/09/21 08:45 POC Glucose 99 mg/dL (70-105) 01/09/21 05:16 Lactic Acid 1.70 mmol/L (0.7-2.0) 12/20/20 16:20 Calcium 8.7 mg/dL (8.4-10.2) 01/09/21 08:45 Ionized Calcium 3.3 mg/dL (4.8-5.6) L 12/27/20 14:40 Phosphorus 5.00 mg/dL (2.5-4.5) H 01/09/21 08:45 Magnesium 2.10 mg/dL (1.7-2.3) 01/09/21 08:45 Total Bilirubin 0.50 mg/dL (0.1-1.2) 01/09/21 08:45 AST 20 units/L (5-40) 01/09/21 08:45 ALT 18 units/L (7-56) 01/09/21 08:45 Alkaline Phosphatase 99 units/L (35-129) 01/09/21 08:45 Troponin T < 0.010 ng/mL (0.00-0.029) 12/20/20 13:58 Total Protein 5.3 g/dL (6.3-8.2) L 01/09/21 08:45 Albumin 1.6 g/dL (3.9-5) L 01/09/21 08:45 Albumin/Globulin Ratio 0.4 % 01/09/21 08:45 Triglycerides 166 mg/dL (2-149) H 01/08/21 Unknown Arterial Blood Glucose 124 mg/dL (65-95) H 01/08/21 03:22 Arterial Blood Ionized Calcium 4.7 mg/dL (4.6-5.3) 01/08/21 03:22 Urine Color Yellow (Yellow) 12/23/20 12:15 Urine Turbidity Cloudy (Clear) 12/23/20 12:15 Urine pH 5.0 (5.0-7.0) 12/23/20 12:15 Ur Specific [place] 1.019 (1.003-1.030) 12/23/20 12:15 Urine Protein <15 mg/dl mg/dL (Negative) 12/23/20 12:15 Urine Glucose (UA) Neg mg/dL (Negative) 12/23/20 12:15 Urine Ketones Neg mg/dL (Negative) 12/23/20 12:15 Urine Blood Sm (Negative) 12/23/20 12:15 Urine Nitrite Neg (Negative) 12/23/20 12:15 Urine Bilirubin Neg (Negative) 12/23/20 12:15 Urine Urobilinogen < 2.0 mg/dL (<2.0) 12/23/20 12:15 Ur Leukocyte Esterase Neg (Negative) 12/23/20 12:15 Urine WBC (Auto) 5.0 /HPF (0.0-6.0) 12/23/20 12:15 Urine RBC (Auto) 2.0 /HPF (0.0-6.0) 12/23/20 12:15 U Epithel Cells (Auto) < 1.0 /HPF (0-13.0) 12/20/20 Unknown Urine Bacteria (Auto) 1+ /HPF (Negative) 12/23/20 12:15 Triple Phos Crystals 2+ 12/23/20 12:15 Hyaline Casts 19 /LPF 12/20/20 Unknown Urine Mucus Few /HPF 12/23/20 12:15 Urine Eosinophils None seen (None Seen) 12/23/20 12:15 Urine Creatinine 78.1 mg/dL (0.1-20.0) H 12/23/20 12:15 Urine Sodium 13 mmol/L 12/23/20 12:15 Fraction Sodium Excret 0.2 12/23/20 12:15 Random Vancomycin 7.9 ug/mL (0-40.0) 12/23/20 12:15 Coronavirus (PCR) Negative (Negative) 12/21/20 Unknown Hepatitis A IgM Ab Non-reactive (NonReactive) 12/30/20 14:40 Hep Bs Antigen Non-reactive (Negative) 12/30/20 14:40 Hep B Core IgM Ab Non-reactive (NonReactive) 12/30/20 14:40 Hepatitis C Antibody Non-reactive (NonReactive) 12/30/20 14:40 Blood Type A NEGATIVE 01/06/21 11:00 Antibody Screen Negative 01/06/21 11:00 Crossmatch See Detail 01/06/21 11:00 Microbiology: Microbiology 01/09/21 04:10 Stool Stool Occult Blood (LORRI) - Final - Imaging and Cardiology Chest x-ray: other (improving b opacities) US - abdomen: other (testicular US NAP) Haley/IV: Voiding Method Indwelling Catheter Active Medications - Current Medications Current Medications: Generic Name Dose Route Start Last Admin Trade Name Freq PRN Reason Stop Dose Admin Acetaminophen 650 mg 12/21/20 11:51 12/25/20 20:35 Acetaminophen 650 Mg Rect Supp AL 650 mg Q4H PRN Administration TEMP >/=100.4 Lipase/Protease/Amylase 1 each 01/07/21 08:44 Lipase 10,500/Protease 25,000/Amylase 43,750 (Units) Dr Cap FEEDTUBE PRN PRN For Clogged Feeding Tube Bisacodyl 10 mg 12/30/20 11:00 01/08/21 09:18 Bisacodyl 10 Mg Rect Supp AL 10 mg QDAY ASCENCION Administration Dextrose 50 ml 12/24/20 10:49 Dextrose 50% In Water (25gm) 50 Ml Syringe IV Q30MIN PRN Hypoglycemia Protocol Famotidine 20 mg 12/26/20 10:00 01/08/21 09:18 Famotidine 20 Mg/2 Ml Inj IV 20 mg DAILY ASCENCION Administration Heparin Sodium (Porcine) 5,000 unit 01/06/21 14:00 01/09/21 06:05 Heparin 5,000 Unit/1 Ml Vial SUB-Q 5,000 unit Q8HR ASCENCION Administration Hydromorphone HCl 1 mg 01/06/21 15:58 01/09/21 04:10 Hydromorphone 1 Mg/1 Ml Inj IV 1 mg Q4H PRN Administration Pain , Severe (7-10) Hydrophilic Ointment 1 applic 12/20/20 21:58 Lip Therapy Vaseline TP Q2HR PRN Dry Lips Fentanyl Citrate 2,000 mcg in 100 mls @ 6.01 mls/hr 12/20/20 22:00 01/09/21 07:39 Fentanyl Drip Premix IV 4 mcg/kg/hr TITR ASCENCION 24.04 mls/hr Administration Protocol 1 MCG/KG/HR Propofol 1,000 mg in 100 mls @ 3.606 mls/hr 12/20/20 22:00 01/09/21 04:16 Diprivan 10 Mg/Ml IV 20 mcg/kg/min TITR ASCENCION 14.424 mls/hr Administration Protocol 5 MCG/KG/MIN NORepinephrine/NS 8 MG-250 ML 8 mg in 250 mls @ 3.75 mls/hr 12/21/20 09:00 01/02/21 06:15 Norepinephrine/Ns 8 Mg-250 Ml (Double Conc) IV 0 mcg/min TITRATE ASCENCION 0 mls/hr Titration Protocol 2 MCG/MIN Vasopressin 20 unit/ Sodium 101 mls @ 9.09 mls/hr 12/24/20 09:00 01/02/21 09:49 Chloride IV 0 units/min TITR ASCENCION 0 mls/hr Titration Protocol 0.03 UNITS/MIN Sodium Chloride 100 mls @ 999 mls/hr 01/03/21 10:21 Nacl 0.9% IV MARILU PRN Hypotension Dexmedetomidine HCl 400 mcg/ 104 mls @ 7.322 mls/hr 01/04/21 11:00 01/09/21 09:23 Sodium Chloride IV 0.6 mcg/kg/hr TITRATE ASCENCION 21.965 mls/hr Administration Protocol 0.2 MCG/KG/HR Amino Acids/Electrolytes/Dextrose 1,999.92 mls @ 83.33 mls/hr 01/08/21 20:00 01/08/21 20:02 Tpn Adult IV 01/09/21 19:59 83.33 mls/hr DAILY@1999 [facility] Administration Protocol Insulin Human Regular 0 units 12/28/20 00:00 01/09/21 06:40 Insulin Regular, Human 100 Units/1 Ml SUB-Q Not Given Q6H [facility] Protocol Multi-Ingred Cream/Lotion/Oil/Oint 1 applic 12/20/20 21:58 01/03/21 01:13 Mineral Oil/Petrolatum, White Ophth Oint 3.5 Gm OU 1 applic Q4HR PRN Administration Dry Eye(s) Simple Syrup 15 ml 01/07/21 08:44 Simple Syrup 15 Ml FEEDTUBE PRN PRN Hypoglycemia Simple Syrup 30 ml 01/07/21 08:44 Simple Syrup 15 Ml FEEDTUBE PRN PRN Hypoglycemia Sodium Bicarbonate 325 mg 01/07/21 08:44 Sodium Bicarbonate 325 Mg Tab FEEDTUBE PRN PRN For Clogged Feeding Tube Sodium Chloride 10 ml 12/20/20 22:00 01/08/21 21:37 Sodium Chloride 0.9% 10 Ml Flush Syringe IV 10 ml BID ASCENCION Administration Sodium Chloride 10 ml 12/20/20 16:42 Sodium Chloride 0.9% 10 Ml Flush Syringe IV PRN PRN LINE FLUSH Nutrition/Malnutrition Assess - Dietary Evaluation Nutrition/Malnutrition Findings: Nutrition Notes Start: 12/21/20 09:06 Freq: Status: Active Protocol: Document 01/09/21 09:54 GER (Rec: 01/09/21 10:07 GER [email or web address]) Nutrition Notes Initial or Follow up Reassessment Current Diagnosis Acute Kidney Injury,Coronary Artery Disease,Sepsis, Hypertension,Small Bowel Obstruction,Hyperlipidemia Other Pertinent Diagnosis gangrenous small bowel, s/p small bowel ressection, peritonitis Current Diet TPN at 83.33ml/hr + Nepro 10ml /hr Labs/Tests Na 129 Cl 92.7 CO2 - 19 BUN 105 Cr 4.4 Phos 5 Pertinent Medications Propofol at 14.424ml/hr ( provides 381 kcal) Height 6 ft Weight 130.5 kg Alfred Body Weight (kg) 80.90 BMI 38.9 Weight change and time frame Wt change noted Weight Status Obese Subjective/Other Information Day 17 CPN. Pt remains on vent support. Spoke with RN via phone this am; pt receiving trickle TF at 10ml/ hr and gastric residuals were 230ml at 9:27. Per RN, TF continues to infuse and will be held if residuals greater than or equal to 250ml. Percent of energy/protein needs met: 100% energy 79% pro (CPN only) Burn Absent Trauma Absent #2 Nutrition Diagnosis Increased nutrient needs ( specify in comment below) #1 Nutrition Diagnosis Inadequate oral intake Diagnosis Progress(for reassessment Continues documentation) Is patient on ventilator? Yes Is Patient Ambulatory and/or Out of Bed No REE-([place]-St. Jeor-confined to bed) 2593.704 Kcal/Kg value to use for calculation 14 Approximate Energy Requirements Using 1827 kcal/Kg Calculation Used for Recommendations Kcal/kg Additional Notes Pro needs >1.2g/kg adjBW: > 127g/day Fluid needs per MD. Nutrition Intervention Nutrition Support: Continue CPN at 83.33ml/hr: MVI, 5mEq Ca. Osmolality: 1690 . Continue Nepro at 10ml/hr as tolerated. Kcal 1,760 Protein (gm) 100 Carbohydrates (gm) 400 Fat (gm) 0 Fluid (mL) 2,000 Fiber (gm) 0 Goal #1 TF tolerance Goal #2 TF plus TPN to meet nutrient needs as best possible Follow-Up By: 01/10/21 Additional Comments Labs in am: BMP, Mg, Phos F/U for TF tolerance/residuals , vent status, propofol - Malnutrition Assessment Minimum of two criteria: Yes - Attestation Statement I have reviewed and agreed w/ Malnutrition eval & tx plan: Yes
--- NOTE | 2021-01-09 12:07 | Progress Note ---
Assessment and Plan Cultures: 12/20/2020 blood culture: No growth 12/20/2020 urine culture: Usual skin giorgio 12/20/2020 tracheal aspirate culture: Mucor A/P: 60-year-old male with obesity, hypertension, tobacco abuse, coronary artery d isease, admitted to the hospital on 12/20/2020 with: #Septic shock: Resolved. No fever. Secondary to intra-abdominal source, peritonitis. Patient with necrotic bowel secondary to incarcerated ventral hernia. Status post exploratory laparotomy, extensive adhesiolysis, small bowel resection and peritoneal lavage along with ABThera VAC placement on 12/20/2020, replacement 12/29/2020. Off pressors. Last surgery abdomen closure with mesh 01/02/2021. #JONI: Renally dose antibiotics. On hemodialysis. #Morbid obesity #Mucor in tracheal aspirate is a colonizer of the tube. Minimal immunosuppression with diabetes. Recs: -continue off abx -monitor WBC -consider moving femoral HD cath to an alternative site to reduce risk of infection Lissette Rizzo MD, FACP [facility] O: [phone] F: [phone] Subjective Date of service: 01/09/21 Principal diagnosis: SBO and necrosis of large part of small intestine Interval history: Afebrile. Remains on the vent. Objective - Exam Narrative Exam: Physical Exam: Constitutional: sedated, intubated, on the vent Head, Ears, Nose: Normocephalic, atraumatic. External ears, nose normal Eyes: Conjunctivae/corneas clear. No icterus. No ptosis. Neck: intubated Oral: intubated Cardiovascular: S1, S2 + Respiratory: AE fair bilaterally and equal GI: midline dressing + bowel sounds + Musculoskeletal: scrotal edema Skin: No rash or abscess Hem/Lymphatic: No palpable cervical or supraclavicular nodes. No lymphangitis Psych: no agitation Neurological: sedated, intubated, on the vent, exam limited - Constitutional Vitals: Vital Signs Temp Pulse Resp BP Pulse Ox 97.8 F 66 24 111/63 97 01/09/21 08:00 01/09/21 10:31 01/09/21 10:31 01/09/21 10:31 01/09/21 10:31 Temperature -Last 24 Hours Temperature 97.8 F Temperature 97.1 F Temperature 97.7 F Temperature 98.0 F Temperature 97.6 F - Labs CBC & Chem 7: 01/08/21 Unknown 01/09/21 08:45 Labs: Abnormal lab results 01/08/21 01/09/21 Range/Units 23:22 08:45 Sodium 129 L (137-145) mmol/L Chloride 92.7 L (98-107) mmol/L Carbon Dioxide 19 L (22-30) mmol/L BUN 105 H (9-20) mg/dL Creatinine 4.4 H (0.8-1.3) mg/dL Glucose 107 H (75-100) mg/dL POC Glucose 110 H (70-105) mg/dL Phosphorus 5.00 H (2.5-4.5) mg/dL Total Protein 5.3 L (6.3-8.2) g/dL Albumin 1.6 L (3.9-5) g/dL
[2021-01-09 12:18] LABS: Hematocrit 21.6 % (35.5-45.6); Hemoglobin 7.2 gm/dl (11.8-15.2); Mean Corpuscular HGB Conc 34 % (32-34); Mean Corpuscular Volume 86 fl (84-94); Platelet Count 224 K/mm3 (140-440); Red Cell Distribution Width 16.5 % (13.2-15.2)
--- NOTE | 2021-01-09 13:29 | Progress Note ---
Assessment and Plan 60 y/o male with abdominal catastrophe, s/p ex-lap with open abdomen, ventilated for pain control and support. 01/09/21: Will obtain contrasted CT of abdomen and pelvis to look for potential pockets of blood or bleeding. Spoke with renal and they feel kidneys are recovering but ok with HD tomorrow if needed post dye load. Will attempt to wean Fent more and use prn dilaudid. Will start reglan to help with gut motility. Hopeful to be off TPN soon. Once sedation is off, can start SBT's. CCT 31 minutes. Subjective Date of service: 01/09/21 Principal diagnosis: SBO and necrosis of large part of small intestine Interval history: No acute events. HgB is still dropping with no obvious signs of bleeding. BP stable. Mental status is stable Objective Vital Signs - 12hr 01/09/21 01/09/21 01/09/21 01:15 01:30 01:45 Temperature Pulse Rate 64 62 63 Pulse Rate [ From Monitor] Respiratory 24 24 24 Rate Blood Pressure 97/53 102/53 97/53 O2 Sat by Pulse 90 95 97 Oximetry 01/09/21 01/09/21 01/09/21 02:00 02:15 02:30 Temperature Pulse Rate 63 63 62 Pulse Rate [ From Monitor] Respiratory 24 24 24 Rate Blood Pressure 103/57 102/53 105/54 O2 Sat by Pulse 96 97 95 Oximetry 01/09/21 01/09/21 01/09/21 02:45 03:01 03:02 Temperature Pulse Rate 73 73 73 Pulse Rate [ From Monitor] Respiratory 22 16 Rate Blood Pressure 103/57 103/57 98/63 O2 Sat by Pulse 97 96 Oximetry 01/09/21 01/09/21 01/09/21 03:15 03:30 03:35 Temperature 97.1 F L Pulse Rate 69 72 Pulse Rate [ From Monitor] Respiratory 24 24 Rate Blood Pressure 121/71 111/69 O2 Sat by Pulse 98 97 Oximetry 01/09/21 01/09/21 01/09/21 03:45 04:00 04:01 Temperature Pulse Rate 86 98 H 99 H Pulse Rate [ 68 From Monitor] Respiratory 24 24 14 Rate Blood Pressure 111/69 161/127 O2 Sat by Pulse 95 99 100 Oximetry 01/09/21 01/09/21 01/09/21 04:15 04:31 04:45 Temperature Pulse Rate 73 70 67 Pulse Rate [ From Monitor] Respiratory 24 24 24 Rate Blood Pressure 161/127 109/64 109/64 O2 Sat by Pulse 97 97 98 Oximetry 01/09/21 01/09/21 01/09/21 05:00 05:15 05:30 Temperature Pulse Rate 64 65 64 Pulse Rate [ From Monitor] Respiratory 24 24 24 Rate Blood Pressure 91/55 91/55 100/56 O2 Sat by Pulse 96 97 99 Oximetry 01/09/21 01/09/21 01/09/21 05:45 06:01 06:15 Temperature Pulse Rate 63 79 66 Pulse Rate [ From Monitor] Respiratory 24 22 24 Rate Blood Pressure 100/56 154/79 154/79 O2 Sat by Pulse 98 95 97 Oximetry 01/09/21 01/09/21 01/09/21 06:30 06:45 07:00 Temperature Pulse Rate 67 65 65 Pulse Rate [ From Monitor] Respiratory 24 24 24 Rate Blood Pressure 128/64 154/79 115/60 O2 Sat by Pulse 97 97 99 Oximetry 01/09/21 01/09/21 01/09/21 07:15 07:30 07:45 Temperature Pulse Rate 67 64 67 Pulse Rate [ From Monitor] Respiratory 24 24 24 Rate Blood Pressure 115/60 120/61 120/61 O2 Sat by Pulse 97 99 98 Oximetry 01/09/21 01/09/21 01/09/21 08:00 08:02 08:15 Temperature 97.8 F Pulse Rate 70 67 71 Pulse Rate [ From Monitor] Respiratory 24 24 Rate Blood Pressure 133/66 133/66 133/66 O2 Sat by Pulse 98 96 94 Oximetry 01/09/21 01/09/21 01/09/21 08:30 08:45 09:00 Temperature Pulse Rate 69 69 72 Pulse Rate [ From Monitor] Respiratory 24 24 24 Rate Blood Pressure 118/61 118/61 129/70 O2 Sat by Pulse 99 99 98 Oximetry 01/09/21 01/09/21 01/09/21 09:15 09:31 09:45 Temperature Pulse Rate 66 66 65 Pulse Rate [ From Monitor] Respiratory 24 24 24 Rate Blood Pressure 129/70 129/70 129/70 O2 Sat by Pulse 97 96 98 Oximetry 01/09/21 01/09/21 01/09/21 10:00 10:15 10:31 Temperature Pulse Rate 66 67 66 Pulse Rate [ From Monitor] Respiratory 24 24 24 Rate Blood Pressure 111/63 111/63 111/63 O2 Sat by Pulse 99 97 97 Oximetry 01/09/21 01/09/21 01/09/21 10:45 11:01 11:15 Temperature Pulse Rate 69 77 71 Pulse Rate [ From Monitor] Respiratory 24 15 24 Rate Blood Pressure 111/63 96/59 96/59 O2 Sat by Pulse 98 92 96 Oximetry 01/09/21 01/09/21 01/09/21 11:31 11:45 12:00 Temperature Pulse Rate 71 72 68 Pulse Rate [ From Monitor] Respiratory 24 24 24 Rate Blood Pressure 96/59 96/59 93/53 O2 Sat by Pulse 98 97 95 Oximetry 01/09/21 12:28 Temperature 98 F Pulse Rate Pulse Rate [ From Monitor] Respiratory Rate Blood Pressure O2 Sat by Pulse Oximetry Constitutional: comatose (secondary to sedation.), other (critically ill on ventilator) Eyes: non-icteric ENT: oropharynx moist Neck: supple Effort: normal Ascultation: Bilateral: other (coarse BS bilaterally) Cardiovascular: other (tachy, RR; no mrg) Gastrointestinal: other (abdomen open) Integumentary: normal Extremities: no cyanosis, no edema, pink and warm Neurologic: other (sedated) CBC and BMP: 01/09/21 10:10 01/09/21 08:45 ABG, PT/INR, D-dimer: ABG ABG pH 7.341 (7.320-7.450) 01/08/21 03:22 POC ABG pCO2 41.0 mmHg (32.0-48.0) 01/08/21 03:22 ABG pCO2 37.9 mm Hg 01/05/21 03:50 POC ABG pO2 71.3 mmHg (83-108) L 01/08/21 03:22 ABG pO2 136.8 mm Hg (80.0-90.0) H 01/05/21 03:50 POC ABG HCO3 21.7 01/08/21 03:22 ABG O2 Saturation 93.8 (0-100) 01/08/21 03:22 PT/INR, D-dimer PT 14.5 Sec. (12.2-14.9) 01/07/21 16:00 INR 1.08 (0.87-1.13) 01/07/21 16:00 Abnormal lab findings: Abnormal Labs 12/20/20 12/20/20 12/20/20 13:58 13:58 13:58 WBC 41.1 H* RBC 5.59 H Hgb 16.2 H Hct 47.7 H MCV MCHC RDW 15.5 H Plt Count 486 H Seg Neuts % (Manual) Lymphocytes % (Manual) Seg Neutrophils # Man Lymphocytes # (Manual) Monocytes # (Manual) APTT ABG pH POC ABG pCO2 POC ABG pO2 ABG pO2 ABG Base Excess ABG Hemoglobin ABG Oxyhemoglobin ABG Sodium ABG Potassium ABG Chloride ABG Glucose Carboxyhemoglobin Sodium 130 L Potassium Chloride 80.7 L Carbon Dioxide BUN 37 H Creatinine Glucose 101 H POC Glucose Lactic Acid 3.20 H* Calcium Ionized Calcium Phosphorus Magnesium AST Alkaline Phosphatase 142 H Total Protein 6.2 L Albumin 2.2 L Triglycerides Arterial Blood Glucose Arterial Blood Ionized Calcium Urine Creatinine Crossmatch 12/20/20 12/20/20 12/20/20 13:58 20:35 21:30 WBC RBC Hgb Hct MCV MCHC RDW Plt Count Seg Neuts % (Manual) Lymphocytes % (Manual) Seg Neutrophils # Man Lymphocytes # (Manual) Monocytes # (Manual) APTT 49.4 H ABG pH 7.313 L POC ABG pCO2 POC ABG pO2 ABG pO2 104.4 H ABG Base Excess ABG Hemoglobin ABG Oxyhemoglobin ABG Sodium ABG Potassium ABG Chloride ABG Glucose Carboxyhemoglobin Sodium Potassium Chloride Carbon Dioxide BUN Creatinine Glucose POC Glucose 122 H Lactic Acid Calcium Ionized Calcium Phosphorus Magnesium AST Alkaline Phosphatase Total Protein Albumin Triglycerides Arterial Blood Glucose Arterial Blood Ionized Calcium Urine Creatinine Crossmatch 12/21/20 12/21/20 12/21/20 03:06 08:14 08:14 WBC 23.9 H RBC Hgb Hct MCV MCHC RDW 15.7 H Plt Count Seg Neuts % (Manual) 91.0 H Lymphocytes % (Manual) 3.0 L Seg Neutrophils # Man 21.7 H Lymphocytes # (Manual) 0.7 L Monocytes # (Manual) 1.4 H APTT ABG pH 7.464 H POC ABG pCO2 POC ABG pO2 202.9 H ABG pO2 ABG Base Excess ABG Hemoglobin ABG Oxyhemoglobin ABG Sodium 133.7 L ABG Potassium ABG Chloride ABG Glucose 122 H Carboxyhemoglobin Sodium Potassium Chloride Carbon Dioxide BUN 46 H Creatinine Glucose 103 H POC Glucose Lactic Acid Calcium 6.6 L D Ionized Calcium Phosphorus Magnesium AST Alkaline Phosphatase Total Protein 5.4 L Albumin 2.3 L Triglycerides Arterial Blood Glucose 122 H Arterial Blood Ionized Calcium 3.5 L Urine Creatinine Crossmatch 12/21/20 12/21/20 12/22/20 17:18 21:28 04:45 WBC 22.9 H RBC Hgb Hct MCV MCHC RDW 15.7 H Plt Count Seg Neuts % (Manual) Lymphocytes % (Manual) Seg Neutrophils # Man Lymphocytes # (Manual) Monocytes # (Manual) APTT ABG pH POC ABG pCO2 POC ABG pO2 ABG pO2 ABG Base Excess ABG Hemoglobin ABG Oxyhemoglobin ABG Sodium ABG Potassium ABG Chloride ABG Glucose Carboxyhemoglobin Sodium Potassium Chloride Carbon Dioxide BUN Creatinine Glucose POC Glucose 108 H Lactic Acid Calcium Ionized Calcium 4.1 L Phosphorus Magnesium AST Alkaline Phosphatase Total Protein Albumin Triglycerides Arterial Blood Glucose Arterial Blood Ionized Calcium Urine Creatinine Crossmatch 12/22/20 12/22/20 12/22/20 04:45 05:00 11:38 WBC RBC Hgb Hct MCV MCHC RDW Plt Count Seg Neuts % (Manual) Lymphocytes % (Manual) Seg Neutrophils # Man Lymphocytes # (Manual) Monocytes # (Manual) APTT ABG pH 7.462 H POC ABG pCO2 POC ABG pO2 ABG pO2 ABG Base Excess ABG Hemoglobin ABG Oxyhemoglobin ABG Sodium ABG Potassium ABG Chloride ABG Glucose 118 H Carboxyhemoglobin Sodium 146 H Potassium Chloride Carbon Dioxide BUN 45 H Creatinine Glucose 116 H POC Glucose 115 H Lactic Acid Calcium 6.9 L Ionized Calcium Phosphorus Magnesium AST Alkaline Phosphatase Total Protein Albumin Triglycerides Arterial Blood Glucose 118 H Arterial Blood Ionized Calcium 3.8 L Urine Creatinine Crossmatch 12/22/20 12/23/20 12/23/20 23:26 04:43 04:45 WBC 22.2 H RBC Hgb Hct MCV MCHC RDW 16.1 H Plt Count Seg Neuts % (Manual) Lymphocytes % (Manual) Seg Neutrophils # Man Lymphocytes # (Manual) Monocytes # (Manual) APTT ABG pH POC ABG pCO2 POC ABG pO2 ABG pO2 ABG Base Excess ABG Hemoglobin ABG Oxyhemoglobin ABG Sodium 147.4 H ABG Potassium ABG Chloride 112.0 H ABG Glucose 130 H Carboxyhemoglobin 0.4 L Sodium Potassium Chloride Carbon Dioxide BUN Creatinine Glucose POC Glucose 110 H Lactic Acid Calcium Ionized Calcium Phosphorus Magnesium AST Alkaline Phosphatase Total Protein Albumin Triglycerides Arterial Blood Glucose 130 H Arterial Blood Ionized Calcium 3.8 L Urine Creatinine Crossmatch 12/23/20 12/23/20 12/23/20 04:45 05:17 11:22 WBC RBC Hgb Hct MCV MCHC RDW Plt Count Seg Neuts % (Manual) Lymphocytes % (Manual) Seg Neutrophils # Man Lymphocytes # (Manual) Monocytes # (Manual) APTT ABG pH POC ABG pCO2 POC ABG pO2 ABG pO2 ABG Base Excess ABG Hemoglobin ABG Oxyhemoglobin ABG Sodium ABG Potassium ABG Chloride ABG Glucose Carboxyhemoglobin Sodium 154 H D Potassium Chloride 110.9 H Carbon Dioxide BUN 54 H Creatinine 1.8 H Glucose 115 H POC Glucose 116 H 130 H Lactic Acid Calcium 7.0 L Ionized Calcium Phosphorus Magnesium AST Alkaline Phosphatase Total Protein Albumin Triglycerides Arterial Blood Glucose Arterial Blood Ionized Calcium Urine Creatinine Crossmatch 12/23/20 12/23/20 12/23/20 12:15 12:15 23:15 WBC RBC Hgb Hct MCV MCHC RDW Plt Count Seg Neuts % (Manual) Lymphocytes % (Manual) Seg Neutrophils # Man Lymphocytes # (Manual) Monocytes # (Manual) APTT ABG pH POC ABG pCO2 POC ABG pO2 ABG pO2 ABG Base Excess ABG Hemoglobin ABG Oxyhemoglobin ABG Sodium ABG Potassium ABG Chloride ABG Glucose Carboxyhemoglobin Sodium 154 H Potassium Chloride Carbon Dioxide BUN Creatinine 1.5 H Glucose POC Glucose 132 H Lactic Acid Calcium Ionized Calcium Phosphorus Magnesium AST Alkaline Phosphatase Total Protein Albumin Triglycerides Arterial Blood Glucose Arterial Blood Ionized Calcium Urine Creatinine 78.1 H Crossmatch 12/24/20 12/24/20 12/24/20 04:19 04:30 04:30 WBC 18.3 H RBC Hgb Hct MCV MCHC RDW 16.5 H Plt Count Seg Neuts % (Manual) Lymphocytes % (Manual) Seg Neutrophils # Man Lymphocytes # (Manual) Monocytes # (Manual) APTT ABG pH POC ABG pCO2 POC ABG pO2 ABG pO2 ABG Base Excess ABG Hemoglobin ABG Oxyhemoglobin ABG Sodium 149.7 H ABG Potassium ABG Chloride 116.0 H ABG Glucose 180 H Carboxyhemoglobin Sodium 155 H Potassium Chloride 116.1 H Carbon Dioxide BUN 52 H Creatinine 1.5 H Glucose 175 H POC Glucose Lactic Acid Calcium 6.8 L Ionized Calcium Phosphorus Magnesium 3.00 H AST Alkaline Phosphatase Total Protein 5.7 L Albumin 1.8 L Triglycerides Arterial Blood Glucose 180 H Arterial Blood Ionized Calcium 3.7 L Urine Creatinine Crossmatch 12/24/20 12/24/20 12/24/20 05:24 11:21 18:05 WBC RBC Hgb Hct MCV MCHC RDW Plt Count Seg Neuts % (Manual) Lymphocytes % (Manual) Seg Neutrophils # Man Lymphocytes # (Manual) Monocytes # (Manual) APTT ABG pH POC ABG pCO2 POC ABG pO2 ABG pO2 ABG Base Excess ABG Hemoglobin ABG Oxyhemoglobin ABG Sodium ABG Potassium ABG Chloride ABG Glucose Carboxyhemoglobin Sodium Potassium Chloride Carbon Dioxide BUN Creatinine Glucose POC Glucose 153 H 154 H 133 H Lactic Acid Calcium Ionized Calcium Phosphorus Magnesium AST Alkaline Phosphatase Total Protein Albumin Triglycerides Arterial Blood Glucose Arterial Blood Ionized Calcium Urine Creatinine Crossmatch 12/25/20 12/25/20 12/25/20 04:00 07:00 07:00 WBC 17.6 H RBC Hgb Hct MCV MCHC 31 L RDW 16.0 H Plt Count Seg Neuts % (Manual) Lymphocytes % (Manual) Seg Neutrophils # Man Lymphocytes # (Manual) Monocytes # (Manual) APTT ABG pH POC ABG pCO2 POC ABG pO2 ABG pO2 ABG Base Excess ABG Hemoglobin ABG Oxyhemoglobin ABG Sodium 152.5 H ABG Potassium ABG Chloride 119.0 H ABG Glucose 136 H Carboxyhemoglobin Sodium Potassium Chloride Carbon Dioxide BUN Creatinine Glucose POC Glucose Lactic Acid Calcium Ionized Calcium Phosphorus Magnesium 2.70 H AST Alkaline Phosphatase Total Protein Albumin Triglycerides Arterial Blood Glucose 136 H Arterial Blood Ionized Calcium 3.7 L Urine Creatinine Crossmatch 12/25/20 12/25/20 12/25/20 07:00 11:24 16:32 WBC RBC Hgb Hct MCV MCHC RDW Plt Count Seg Neuts % (Manual) Lymphocytes % (Manual) Seg Neutrophils # Man Lymphocytes # (Manual) Monocytes # (Manual) APTT ABG pH POC ABG pCO2 POC ABG pO2 ABG pO2 ABG Base Excess ABG Hemoglobin ABG Oxyhemoglobin ABG Sodium ABG Potassium ABG Chloride ABG Glucose Carboxyhemoglobin Sodium 156 H Potassium Chloride 118.0 H Carbon Dioxide BUN 44 H Creatinine 1.7 H Glucose 126 H POC Glucose 110 H 126 H Lactic Acid Calcium 6.9 L Ionized Calcium Phosphorus Magnesium AST Alkaline Phosphatase Total Protein Albumin Triglycerides Arterial Blood Glucose Arterial Blood Ionized Calcium Urine Creatinine Crossmatch 12/25/20 12/25/20 12/26/20 18:18 23:23 03:30 WBC RBC Hgb Hct MCV MCHC RDW Plt Count Seg Neuts % (Manual) Lymphocytes % (Manual) Seg Neutrophils # Man Lymphocytes # (Manual) Monocytes # (Manual) APTT ABG pH POC ABG pCO2 POC ABG pO2 ABG pO2 ABG Base Excess ABG Hemoglobin 11.8 L ABG Oxyhemoglobin ABG Sodium ABG Potassium 4.7 H ABG Chloride 114.0 H ABG Glucose 132 H Carboxyhemoglobin Sodium 151 H Potassium Chloride 114.3 H Carbon Dioxide BUN 51 H Creatinine 2.6 H D Glucose 122 H POC Glucose 115 H Lactic Acid Calcium 6.4 L Ionized Calcium Phosphorus Magnesium AST Alkaline Phosphatase Total Protein Albumin Triglycerides Arterial Blood Glucose 132 H Arterial Blood Ionized Calcium 3.6 L Urine Creatinine Crossmatch 12/26/20 12/26/20 12/26/20 04:55 06:01 06:01 WBC 21.6 H RBC Hgb Hct MCV MCHC 31 L RDW 16.5 H Plt Count 136 L Seg Neuts % (Manual) Lymphocytes % (Manual) Seg Neutrophils # Man Lymphocytes # (Manual) Monocytes # (Manual) APTT ABG pH POC ABG pCO2 POC ABG pO2 ABG pO2 ABG Base Excess ABG Hemoglobin ABG Oxyhemoglobin ABG Sodium ABG Potassium ABG Chloride ABG Glucose Carboxyhemoglobin Sodium 173 H* D Potassium 6.1 H* D Chloride 137.0 H Carbon Dioxide BUN 73 H Creatinine 3.8 H Glucose 125 H POC Glucose 112 H Lactic Acid Calcium 6.2 L Ionized Calcium Phosphorus 5.70 H D Magnesium 2.90 H AST Alkaline Phosphatase Total Protein Albumin Triglycerides Arterial Blood Glucose Arterial Blood Ionized Calcium Urine Creatinine Crossmatch 12/26/20 12/26/20 12/26/20 08:33 11:19 22:00 WBC RBC Hgb Hct MCV MCHC RDW Plt Count Seg Neuts % (Manual) Lymphocytes % (Manual) Seg Neutrophils # Man Lymphocytes # (Manual) Monocytes # (Manual) APTT ABG pH POC ABG pCO2 POC ABG pO2 ABG pO2 ABG Base Excess ABG Hemoglobin ABG Oxyhemoglobin ABG Sodium ABG Potassium ABG Chloride ABG Glucose Carboxyhemoglobin Sodium 147 H D Potassium 5.8 H D Chloride 108.8 H Carbon Dioxide 21 L BUN 68 H 68 H Creatinine 3.8 H 4.1 H Glucose 144 H 154 H POC Glucose 144 H Lactic Acid Calcium 6.5 L 5.8 L* Ionized Calcium Phosphorus Magnesium AST 215 H Alkaline Phosphatase Total Protein 4.7 L Albumin 1.5 L Triglycerides Arterial Blood Glucose Arterial Blood Ionized Calcium Urine Creatinine Crossmatch 12/26/20 12/26/20 12/27/20 23:13 Unknown 00:25 WBC RBC Hgb 11.1 L Hct MCV MCHC RDW Plt Count Seg Neuts % (Manual) Lymphocytes % (Manual) Seg Neutrophils # Man Lymphocytes # (Manual) Monocytes # (Manual) APTT ABG pH POC ABG pCO2 POC ABG pO2 ABG pO2 ABG Base Excess ABG Hemoglobin ABG Oxyhemoglobin ABG Sodium ABG Potassium ABG Chloride ABG Glucose Carboxyhemoglobin Sodium Potassium Chloride Carbon Dioxide BUN Creatinine Glucose POC Glucose 163 H Lactic Acid Calcium Ionized Calcium Phosphorus 5.60 H Magnesium AST Alkaline Phosphatase Total Protein Albumin Triglycerides Arterial Blood Glucose Arterial Blood Ionized Calcium Urine Creatinine Crossmatch 12/27/20 12/27/20 12/27/20 02:57 04:15 04:15 WBC 28.5 H RBC Hgb 11.2 L Hct MCV MCHC 31 L RDW 16.5 H Plt Count 130 L Seg Neuts % (Manual) Lymphocytes % (Manual) Seg Neutrophils # Man Lymphocytes # (Manual) Monocytes # (Manual) APTT ABG pH 7.238 L POC ABG pCO2 POC ABG pO2 139.1 H ABG pO2 ABG Base Excess ABG Hemoglobin 11.2 L ABG Oxyhemoglobin ABG Sodium 133.8 L ABG Potassium 5.2 H ABG Chloride ABG Glucose 182 H Carboxyhemoglobin Sodium 136 L Potassium 6.0 H Chloride Carbon Dioxide 18 L BUN 68 H Creatinine 4.1 H Glucose 166 H POC Glucose Lactic Acid Calcium 6.2 L Ionized Calcium Phosphorus 7.30 H D Magnesium AST Alkaline Phosphatase Total Protein Albumin Triglycerides 164 H Arterial Blood Glucose 182 H Arterial Blood Ionized Calcium 3.4 L Urine Creatinine Crossmatch 12/27/20 12/27/20 12/27/20 04:50 10:51 11:17 WBC RBC Hgb Hct MCV MCHC RDW Plt Count Seg Neuts % (Manual) Lymphocytes % (Manual) Seg Neutrophils # Man Lymphocytes # (Manual) Monocytes # (Manual) APTT ABG pH POC ABG pCO2 POC ABG pO2 ABG pO2 ABG Base Excess ABG Hemoglobin ABG Oxyhemoglobin ABG Sodium ABG Potassium ABG Chloride ABG Glucose Carboxyhemoglobin Sodium Potassium Chloride Carbon Dioxide BUN Creatinine Glucose POC Glucose 140 H 113 H 154 H Lactic Acid Calcium Ionized Calcium Phosphorus Magnesium AST Alkaline Phosphatase Total Protein Albumin Triglycerides Arterial Blood Glucose Arterial Blood Ionized Calcium Urine Creatinine Crossmatch 12/27/20 12/27/20 12/27/20 12:40 14:40 23:17 WBC RBC Hgb Hct MCV MCHC RDW Plt Count Seg Neuts % (Manual) Lymphocytes % (Manual) Seg Neutrophils # Man Lymphocytes # (Manual) Monocytes # (Manual) APTT ABG pH POC ABG pCO2 POC ABG pO2 ABG pO2 ABG Base Excess ABG Hemoglobin ABG Oxyhemoglobin ABG Sodium ABG Potassium ABG Chloride ABG Glucose Carboxyhemoglobin Sodium 135 L Potassium Chloride Carbon Dioxide 21 L BUN 62 H Creatinine 3.8 H Glucose 132 H POC Glucose 130 H Lactic Acid Calcium 5.6 L* Ionized Calcium 3.3 L Phosphorus Magnesium AST Alkaline Phosphatase Total Protein Albumin Triglycerides Arterial Blood Glucose Arterial Blood Ionized Calcium Urine Creatinine Crossmatch 12/28/20 12/28/20 12/28/20 05:36 07:08 07:28 WBC 27.2 H RBC 3.50 L Hgb 9.6 L Hct 30.8 L MCV MCHC 31 L RDW 16.1 H Plt Count 111 L Seg Neuts % (Manual) 95.0 H Lymphocytes % (Manual) Seg Neutrophils # Man 25.8 H Lymphocytes # (Manual) 0.0 L Monocytes # (Manual) 1.1 H APTT ABG pH 7.200 L POC ABG pCO2 POC ABG pO2 67.2 L ABG pO2 ABG Base Excess ABG Hemoglobin 10.3 L ABG Oxyhemoglobin 89.6 L ABG Sodium 127.8 L ABG Potassium 5.1 H ABG Chloride ABG Glucose 132 H Carboxyhemoglobin 0.4 L Sodium Potassium Chloride Carbon Dioxide BUN Creatinine Glucose POC Glucose 128 H Lactic Acid Calcium Ionized Calcium Phosphorus Magnesium AST Alkaline Phosphatase Total Protein Albumin Triglycerides Arterial Blood Glucose 132 H Arterial Blood Ionized Calcium 3.5 L Urine Creatinine Crossmatch 12/28/20 12/28/20 12/28/20 07:28 11:37 13:25 WBC RBC Hgb Hct MCV MCHC RDW Plt Count Seg Neuts % (Manual) Lymphocytes % (Manual) Seg Neutrophils # Man Lymphocytes # (Manual) Monocytes # (Manual) APTT ABG pH POC ABG pCO2 POC ABG pO2 ABG pO2 ABG Base Excess ABG Hemoglobin ABG Oxyhemoglobin ABG Sodium ABG Potassium ABG Chloride ABG Glucose Carboxyhemoglobin Sodium 131 L 133 L Potassium 5.9 H 5.1 H Chloride 97.1 L Carbon Dioxide 15 L 21 L BUN 70 H 77 H Creatinine 4.0 H 4.4 H Glucose 118 H 140 H POC Glucose 135 H Lactic Acid Calcium 6.3 L 6.3 L Ionized Calcium Phosphorus 7.10 H Magnesium AST 144 H Alkaline Phosphatase Total Protein 4.8 L Albumin 1.3 L Triglycerides Arterial Blood Glucose Arterial Blood Ionized Calcium Urine Creatinine Crossmatch 12/28/20 12/28/20 12/29/20 16:38 23:28 03:08 WBC RBC Hgb Hct MCV MCHC RDW Plt Count Seg Neuts % (Manual) Lymphocytes % (Manual) Seg Neutrophils # Man Lymphocytes # (Manual) Monocytes # (Manual) APTT ABG pH 7.301 L POC ABG pCO2 POC ABG pO2 151.1 H ABG pO2 ABG Base Excess ABG Hemoglobin 8.7 L ABG Oxyhemoglobin 98.2 H ABG Sodium 123.4 L ABG Potassium ABG Chloride 97.0 L ABG Glucose 144 H Carboxyhemoglobin Sodium Potassium Chloride Carbon Dioxide BUN Creatinine Glucose POC Glucose 140 H 134 H Lactic Acid Calcium Ionized Calcium Phosphorus Magnesium AST Alkaline Phosphatase Total Protein Albumin Triglycerides Arterial Blood Glucose 144 H Arterial Blood Ionized Calcium 3.4 L Urine Creatinine Crossmatch 12/29/20 12/29/20 12/29/20 05:20 05:20 06:01 WBC 21.0 H RBC 2.89 L Hgb 8.1 L Hct 25.5 L MCV MCHC RDW 16.1 H Plt Count 124 L Seg Neuts % (Manual) Lymphocytes % (Manual) Seg Neutrophils # Man Lymphocytes # (Manual) Monocytes # (Manual) APTT ABG pH POC ABG pCO2 POC ABG pO2 ABG pO2 ABG Base Excess ABG Hemoglobin ABG Oxyhemoglobin ABG Sodium ABG Potassium ABG Chloride ABG Glucose Carboxyhemoglobin Sodium 131 L Potassium Chloride 93.4 L Carbon Dioxide BUN 79 H Creatinine 4.7 H Glucose 122 H POC Glucose 108 H Lactic Acid Calcium 5.5 L* Ionized Calcium Phosphorus 5.70 H Magnesium 1.60 L AST Alkaline Phosphatase Total Protein Albumin Triglycerides Arterial Blood Glucose Arterial Blood Ionized Calcium Urine Creatinine Crossmatch 12/29/20 12/29/20 12/29/20 10:04 11:27 17:31 WBC RBC Hgb Hct MCV MCHC RDW Plt Count Seg Neuts % (Manual) Lymphocytes % (Manual) Seg Neutrophils # Man Lymphocytes # (Manual) Monocytes # (Manual) APTT ABG pH POC ABG pCO2 POC ABG pO2 ABG pO2 ABG Base Excess ABG Hemoglobin ABG Oxyhemoglobin ABG Sodium ABG Potassium ABG Chloride ABG Glucose Carboxyhemoglobin Sodium Potassium Chloride Carbon Dioxide BUN Creatinine Glucose POC Glucose 107 H 112 H 110 H Lactic Acid Calcium Ionized Calcium Phosphorus Magnesium AST Alkaline Phosphatase Total Protein Albumin Triglycerides Arterial Blood Glucose Arterial Blood Ionized Calcium Urine Creatinine Crossmatch 12/30/20 12/30/20 12/30/20 03:31 08:06 17:39 WBC RBC Hgb Hct MCV MCHC RDW Plt Count Seg Neuts % (Manual) Lymphocytes % (Manual) Seg Neutrophils # Man Lymphocytes # (Manual) Monocytes # (Manual) APTT ABG pH 7.261 L POC ABG pCO2 POC ABG pO2 123.1 H ABG pO2 ABG Base Excess ABG Hemoglobin 8.7 L ABG Oxyhemoglobin ABG Sodium 123.2 L ABG Potassium ABG Chloride 96.0 L ABG Glucose 112 H Carboxyhemoglobin Sodium 128 L Potassium Chloride 90.7 L Carbon Dioxide 21 L BUN 86 H Creatinine 4.9 H Glucose 107 H POC Glucose 134 H Lactic Acid Calcium 6.2 L Ionized Calcium Phosphorus 5.30 H Magnesium 1.50 L AST Alkaline Phosphatase Total Protein Albumin Triglycerides Arterial Blood Glucose 112 H Arterial Blood Ionized Calcium 3.2 L Urine Creatinine Crossmatch 12/30/20 12/31/20 12/31/20 22:45 02:14 04:40 WBC RBC Hgb Hct MCV MCHC RDW Plt Count Seg Neuts % (Manual) Lymphocytes % (Manual) Seg Neutrophils # Man Lymphocytes # (Manual) Monocytes # (Manual) APTT ABG pH 7.267 L POC ABG pCO2 POC ABG pO2 ABG pO2 ABG Base Excess ABG Hemoglobin 8.0 L ABG Oxyhemoglobin 93.7 L ABG Sodium ABG Potassium ABG Chloride 95.0 L ABG Glucose 108 H Carboxyhemoglobin 1.7 H Sodium 126 L Potassium Chloride 90.3 L Carbon Dioxide 20 L BUN 70 H Creatinine 4.3 H Glucose 209 H POC Glucose 109 H Lactic Acid Calcium 6.6 L Ionized Calcium Phosphorus 4.70 H Magnesium 1.60 L AST Alkaline Phosphatase Total Protein Albumin Triglycerides 157 H Arterial Blood Glucose 108 H Arterial Blood Ionized Calcium 3.7 L Urine Creatinine Crossmatch 12/31/20 12/31/20 01/01/21 16:23 23:21 04:00 WBC 18.0 H RBC 2.75 L Hgb 7.7 L Hct 23.9 L MCV MCHC RDW 15.6 H Plt Count Seg Neuts % (Manual) 91.0 H Lymphocytes % (Manual) 6.0 L Seg Neutrophils # Man 16.4 H Lymphocytes # (Manual) 1.1 L Monocytes # (Manual) APTT ABG pH 7.264 L POC ABG pCO2 POC ABG pO2 74.8 L ABG pO2 ABG Base Excess ABG Hemoglobin 7.1 L ABG Oxyhemoglobin 92.1 L ABG Sodium 124.9 L ABG Potassium ABG Chloride 95.0 L ABG Glucose 111 H Carboxyhemoglobin 1.7 H Sodium Potassium Chloride Carbon Dioxide BUN Creatinine Glucose POC Glucose 125 H Lactic Acid Calcium Ionized Calcium Phosphorus Magnesium AST Alkaline Phosphatase Total Protein Albumin Triglycerides Arterial Blood Glucose 111 H Arterial Blood Ionized Calcium 4.0 L Urine Creatinine Crossmatch 01/01/21 01/01/21 01/01/21 05:50 13:41 15:55 WBC RBC Hgb Hct MCV MCHC RDW Plt Count Seg Neuts % (Manual) Lymphocytes % (Manual) Seg Neutrophils # Man Lymphocytes # (Manual) Monocytes # (Manual) APTT ABG pH 7.148 L 7.207 L POC ABG pCO2 53.1 H POC ABG pO2 57.3 L 138.4 H ABG pO2 ABG Base Excess ABG Hemoglobin 9.0 L 8.3 L ABG Oxyhemoglobin 83.2 L ABG Sodium 126.2 L 124.5 L ABG Potassium ABG Chloride 95.0 L 95.0 L ABG Glucose 96 H 120 H Carboxyhemoglobin Sodium 131 L Potassium Chloride 93.3 L Carbon Dioxide 21 L BUN 67 H Creatinine 4.2 H Glucose POC Glucose Lactic Acid Calcium 7.1 L Ionized Calcium Phosphorus Magnesium AST 60 H Alkaline Phosphatase Total Protein 4.8 L Albumin 1.4 L Triglycerides Arterial Blood Glucose 96 H 120 H Arterial Blood Ionized Calcium 4.1 L 3.9 L Urine Creatinine Crossmatch 01/01/21 01/01/21 01/02/21 17:09 23:24 03:47 WBC RBC Hgb Hct MCV MCHC RDW Plt Count Seg Neuts % (Manual) Lymphocytes % (Manual) Seg Neutrophils # Man Lymphocytes # (Manual) Monocytes # (Manual) APTT ABG pH 7.276 L POC ABG pCO2 POC ABG pO2 173.6 H ABG pO2 ABG Base Excess ABG Hemoglobin 7 L ABG Oxyhemoglobin ABG Sodium 122.4 L ABG Potassium ABG Chloride 94.0 L ABG Glucose 118 H Carboxyhemoglobin Sodium Potassium Chloride Carbon Dioxide BUN Creatinine Glucose POC Glucose 124 H 119 H Lactic Acid Calcium Ionized Calcium Phosphorus Magnesium AST Alkaline Phosphatase Total Protein Albumin Triglycerides Arterial Blood Glucose 118 H Arterial Blood Ionized Calcium 4.0 L Urine Creatinine Crossmatch 01/02/21 01/02/21 01/02/21 05:33 08:00 08:00 WBC 19.7 H RBC 2.53 L Hgb 7.1 L Hct 22.0 L MCV MCHC RDW 16.4 H Plt Count Seg Neuts % (Manual) Lymphocytes % (Manual) Seg Neutrophils # Man Lymphocytes # (Manual) Monocytes # (Manual) APTT ABG pH POC ABG pCO2 POC ABG pO2 ABG pO2 ABG Base Excess ABG Hemoglobin ABG Oxyhemoglobin ABG Sodium ABG Potassium ABG Chloride ABG Glucose Carboxyhemoglobin Sodium 127 L Potassium Chloride 89.3 L Carbon Dioxide 19 L BUN 82 H Creatinine 5.0 H Glucose 103 H POC Glucose 107 H Lactic Acid Calcium 7.8 L Ionized Calcium Phosphorus 6.40 H Magnesium AST 47 H Alkaline Phosphatase Total Protein 5.0 L Albumin 1.6 L Triglycerides Arterial Blood Glucose Arterial Blood Ionized Calcium Urine Creatinine Crossmatch 01/02/21 01/03/21 01/03/21 17:25 07:56 09:47 WBC 17.7 H RBC 2.19 L Hgb 6.2 L Hct 18.5 L* MCV MCHC RDW 16.1 H Plt Count Seg Neuts % (Manual) Lymphocytes % (Manual) Seg Neutrophils # Man Lymphocytes # (Manual) Monocytes # (Manual) APTT ABG pH POC ABG pCO2 POC ABG pO2 ABG pO2 ABG Base Excess ABG Hemoglobin ABG Oxyhemoglobin ABG Sodium ABG Potassium ABG Chloride ABG Glucose Carboxyhemoglobin Sodium 130 L Potassium 3.5 L Chloride 90.3 L Carbon Dioxide BUN 68 H Creatinine 3.9 H Glucose 103 H POC Glucose 116 H Lactic Acid Calcium 8.0 L Ionized Calcium Phosphorus 4.80 H D Magnesium AST Alkaline Phosphatase Total Protein Albumin Triglycerides Arterial Blood Glucose Arterial Blood Ionized Calcium Urine Creatinine Crossmatch 01/03/21 01/03/21 01/04/21 11:00 19:00 03:12 WBC 17.0 H RBC 2.51 L Hgb 7.1 L Hct 21.5 L MCV MCHC RDW 16.6 H Plt Count Seg Neuts % (Manual) Lymphocytes % (Manual) Seg Neutrophils # Man Lymphocytes # (Manual) Monocytes # (Manual) APTT ABG pH 7.463 H POC ABG pCO2 POC ABG pO2 72.2 L ABG pO2 ABG Base Excess ABG Hemoglobin 6.2 L ABG Oxyhemoglobin 91.8 L ABG Sodium 128.4 L ABG Potassium 3.3 L ABG Chloride 96.0 L ABG Glucose 112 H Carboxyhemoglobin Sodium Potassium Chloride Carbon Dioxide BUN Creatinine Glucose POC Glucose Lactic Acid Calcium Ionized Calcium Phosphorus Magnesium AST Alkaline Phosphatase Total Protein Albumin Triglycerides Arterial Blood Glucose 112 H Arterial Blood Ionized Calcium 4.3 L Urine Creatinine Crossmatch See Detail 01/04/21 01/04/21 01/04/21 05:16 06:20 06:20 WBC 18.5 H RBC 2.53 L Hgb 7.4 L Hct 21.9 L MCV MCHC RDW 15.8 H Plt Count Seg Neuts % (Manual) Lymphocytes % (Manual) Seg Neutrophils # Man Lymphocytes # (Manual) Monocytes # (Manual) APTT ABG pH POC ABG pCO2 POC ABG pO2 ABG pO2 ABG Base Excess ABG Hemoglobin ABG Oxyhemoglobin ABG Sodium ABG Potassium ABG Chloride ABG Glucose Carboxyhemoglobin Sodium 135 L Potassium Chloride 95.2 L Carbon Dioxide BUN 56 H Creatinine 3.2 H Glucose 109 H POC Glucose 123 H Lactic Acid Calcium 7.6 L Ionized Calcium Phosphorus Magnesium AST Alkaline Phosphatase Total Protein Albumin Triglycerides Arterial Blood Glucose Arterial Blood Ionized Calcium Urine Creatinine Crossmatch 01/05/21 01/05/21 01/05/21 03:50 07:22 07:22 WBC 23.8 H RBC 2.93 L Hgb 8.2 L Hct 25.1 L MCV MCHC RDW 16.5 H Plt Count Seg Neuts % (Manual) Lymphocytes % (Manual) Seg Neutrophils # Man Lymphocytes # (Manual) Monocytes # (Manual) APTT ABG pH POC ABG pCO2 POC ABG pO2 ABG pO2 136.8 H ABG Base Excess -2.3 L ABG Hemoglobin 6.9 L ABG Oxyhemoglobin ABG Sodium ABG Potassium ABG Chloride ABG Glucose Carboxyhemoglobin Sodium 134 L Potassium Chloride 93.3 L Carbon Dioxide BUN 77 H Creatinine 4.2 H Glucose 105 H POC Glucose Lactic Acid Calcium Ionized Calcium Phosphorus 4.90 H D Magnesium AST Alkaline Phosphatase Total Protein Albumin Triglycerides Arterial Blood Glucose Arterial Blood Ionized Calcium Urine Creatinine Crossmatch 01/05/21 01/05/21 01/05/21 11:02 14:06 15:37 WBC RBC Hgb Hct MCV MCHC RDW Plt Count Seg Neuts % (Manual) Lymphocytes % (Manual) Seg Neutrophils # Man Lymphocytes # (Manual) Monocytes # (Manual) APTT ABG pH POC ABG pCO2 POC ABG pO2 332.3 H ABG pO2 ABG Base Excess ABG Hemoglobin 7.7 L ABG Oxyhemoglobin 98.7 H ABG Sodium 131.0 L ABG Potassium 3.3 L ABG Chloride 97.0 L ABG Glucose 118 H Carboxyhemoglobin Sodium Potassium Chloride Carbon Dioxide BUN Creatinine Glucose POC Glucose 118 H 111 H Lactic Acid Calcium Ionized Calcium Phosphorus Magnesium AST Alkaline Phosphatase Total Protein Albumin Triglycerides Arterial Blood Glucose 118 H Arterial Blood Ionized Calcium 4.4 L Urine Creatinine Crossmatch 01/05/21 01/06/21 01/06/21 23:18 04:00 04:20 WBC RBC Hgb Hct MCV MCHC RDW Plt Count Seg Neuts % (Manual) Lymphocytes % (Manual) Seg Neutrophils # Man Lymphocytes # (Manual) Monocytes # (Manual) APTT ABG pH POC ABG pCO2 POC ABG pO2 230.5 H ABG pO2 ABG Base Excess ABG Hemoglobin 7.9 L ABG Oxyhemoglobin 98.5 H ABG Sodium 129.4 L ABG Potassium ABG Chloride 97.0 L ABG Glucose 117 H Carboxyhemoglobin Sodium 133 L Potassium Chloride 94.4 L Carbon Dioxide BUN 62 H Creatinine 3.6 H Glucose 110 H POC Glucose 110 H Lactic Acid Calcium 7.8 L Ionized Calcium Phosphorus Magnesium AST Alkaline Phosphatase Total Protein Albumin Triglycerides Arterial Blood Glucose 117 H Arterial Blood Ionized Calcium 4.5 L Urine Creatinine Crossmatch 01/06/21 01/06/21 01/06/21 05:28 09:00 11:00 WBC 15.2 H RBC 2.18 L Hgb 6.5 L Hct 21.8 L MCV 100 H MCHC 30 L RDW 18.5 H Plt Count Seg Neuts % (Manual) Lymphocytes % (Manual) Seg Neutrophils # Man Lymphocytes # (Manual) Monocytes # (Manual) APTT ABG pH POC ABG pCO2 POC ABG pO2 ABG pO2 ABG Base Excess ABG Hemoglobin ABG Oxyhemoglobin ABG Sodium ABG Potassium ABG Chloride ABG Glucose Carboxyhemoglobin Sodium Potassium Chloride Carbon Dioxide BUN Creatinine Glucose POC Glucose 109 H Lactic Acid Calcium Ionized Calcium Phosphorus Magnesium AST Alkaline Phosphatase Total Protein Albumin Triglycerides Arterial Blood Glucose Arterial Blood Ionized Calcium Urine Creatinine Crossmatch See Detail 01/06/21 01/06/21 01/07/21 11:32 23:44 03:10 WBC 15.3 H RBC 2.30 L Hgb 6.7 L Hct 20.1 L MCV MCHC RDW 16.6 H Plt Count Seg Neuts % (Manual) Lymphocytes % (Manual) Seg Neutrophils # Man Lymphocytes # (Manual) Monocytes # (Manual) APTT ABG pH POC ABG pCO2 POC ABG pO2 ABG pO2 ABG Base Excess ABG Hemoglobin ABG Oxyhemoglobin ABG Sodium ABG Potassium ABG Chloride ABG Glucose Carboxyhemoglobin Sodium Potassium Chloride Carbon Dioxide BUN Creatinine Glucose POC Glucose 113 H 118 H Lactic Acid Calcium Ionized Calcium Phosphorus Magnesium AST Alkaline Phosphatase Total Protein Albumin Triglycerides Arterial Blood Glucose Arterial Blood Ionized Calcium Urine Creatinine Crossmatch 01/07/21 01/07/21 01/07/21 03:10 04:17 05:06 WBC RBC Hgb Hct MCV MCHC RDW Plt Count Seg Neuts % (Manual) Lymphocytes % (Manual) Seg Neutrophils # Man Lymphocytes # (Manual) Monocytes # (Manual) APTT ABG pH 7.272 L POC ABG pCO2 50.1 H POC ABG pO2 ABG pO2 ABG Base Excess ABG Hemoglobin 8.4 L ABG Oxyhemoglobin ABG Sodium 128.6 L ABG Potassium ABG Chloride 95.0 L ABG Glucose 109 H Carboxyhemoglobin Sodium 133 L Potassium Chloride 93.6 L Carbon Dioxide BUN 85 H Creatinine 3.9 H Glucose 112 H POC Glucose 106 H Lactic Acid Calcium Ionized Calcium Phosphorus 4.70 H D Magnesium AST Alkaline Phosphatase Total Protein Albumin Triglycerides Arterial Blood Glucose 109 H Arterial Blood Ionized Calcium Urine Creatinine Crossmatch 01/07/21 01/07/21 01/07/21 14:05 16:00 23:25 WBC RBC Hgb 8.1 L Hct 24.2 L MCV MCHC RDW Plt Count Seg Neuts % (Manual) Lymphocytes % (Manual) Seg Neutrophils # Man Lymphocytes # (Manual) Monocytes # (Manual) APTT ABG pH POC ABG pCO2 POC ABG pO2 ABG pO2 ABG Base Excess ABG Hemoglobin 7.2 L ABG Oxyhemoglobin ABG Sodium 127.3 L ABG Potassium ABG Chloride 96.0 L ABG Glucose 98 H Carboxyhemoglobin Sodium Potassium Chloride Carbon Dioxide BUN Creatinine Glucose POC Glucose 106 H Lactic Acid Calcium Ionized Calcium Phosphorus Magnesium AST Alkaline Phosphatase Total Protein Albumin Triglycerides Arterial Blood Glucose 98 H Arterial Blood Ionized Calcium Urine Creatinine Crossmatch 01/08/21 01/08/21 01/08/21 03:22 05:30 23:22 WBC RBC Hgb Hct MCV MCHC RDW Plt Count Seg Neuts % (Manual) Lymphocytes % (Manual) Seg Neutrophils # Man Lymphocytes # (Manual) Monocytes # (Manual) APTT ABG pH POC ABG pCO2 POC ABG pO2 71.3 L ABG pO2 ABG Base Excess ABG Hemoglobin 8.7 L ABG Oxyhemoglobin 92.2 L ABG Sodium 125.9 L ABG Potassium ABG Chloride 96.0 L ABG Glucose 124 H Carboxyhemoglobin Sodium Potassium Chloride Carbon Dioxide BUN Creatinine Glucose POC Glucose 118 H 110 H Lactic Acid Calcium Ionized Calcium Phosphorus Magnesium AST Alkaline Phosphatase Total Protein Albumin Triglycerides Arterial Blood Glucose 124 H Arterial Blood Ionized Calcium Urine Creatinine Crossmatch 01/08/21 01/08/21 01/09/21 Unknown Unknown 08:45 WBC 15.2 H RBC 2.62 L Hgb 7.6 L Hct 22.7 L MCV MCHC RDW 16.7 H Plt Count Seg Neuts % (Manual) 95.0 H Lymphocytes % (Manual) 3.0 L Seg Neutrophils # Man 14.4 H Lymphocytes # (Manual) 0.5 L Monocytes # (Manual) APTT ABG pH POC ABG pCO2 POC ABG pO2 ABG pO2 ABG Base Excess ABG Hemoglobin ABG Oxyhemoglobin ABG Sodium ABG Potassium ABG Chloride ABG Glucose Carboxyhemoglobin Sodium 129 L 129 L Potassium Chloride 91.2 L 92.7 L Carbon Dioxide 21 L 19 L BUN 91 H 105 H Creatinine 4.0 H 4.4 H Glucose 115 H 107 H POC Glucose Lactic Acid Calcium Ionized Calcium Phosphorus 5.00 H Magnesium AST Alkaline Phosphatase Total Protein 5.3 L Albumin 1.6 L Triglycerides 166 H Arterial Blood Glucose Arterial Blood Ionized Calcium Urine Creatinine Crossmatch 01/09/21 10:10 WBC 14.1 H RBC 2.50 L Hgb 7.2 L Hct 21.6 L MCV MCHC RDW 16.5 H Plt Count Seg Neuts % (Manual) Lymphocytes % (Manual) Seg Neutrophils # Man Lymphocytes # (Manual) Monocytes # (Manual) APTT ABG pH POC ABG pCO2 POC ABG pO2 ABG pO2 ABG Base Excess ABG Hemoglobin ABG Oxyhemoglobin ABG Sodium ABG Potassium ABG Chloride ABG Glucose Carboxyhemoglobin Sodium Potassium Chloride Carbon Dioxide BUN Creatinine Glucose POC Glucose Lactic Acid Calcium Ionized Calcium Phosphorus Magnesium AST Alkaline Phosphatase Total Protein Albumin Triglycerides Arterial Blood Glucose Arterial Blood Ionized Calcium Urine Creatinine Crossmatch
[2021-01-09] MEDS: FAMOTIDINE 20 MG/2 ML INJ IV SCH (13:58)
[2021-01-09] MEDS ORDERED: diphenhydrAMINE 50 MG/ML VIAL IV NR (14:42)
[2021-01-09] MEDS ORDERED: methylPREDNISolone Sod Succinate 40 MG/1 ML INJ IV NR (14:42)
[2021-01-09 14:47] LABS: Band Neutrophils # (Manual) 0.4 K/mm3; Myelocytes # (Manual) 0.1 K/mm3; Platelet Estimate Consistent w Auto; RBC Morphology Normal; Total Cells Counted 100
[2021-01-09] MEDS: hydrALAZINE 20 MG/1 ML INJ IV PRN (16:34)
--- NOTE | 2021-01-09 16:56 | Progress Note ---
Assessment and Plan POD#21 s/p ex lap and small bowel resection for necrotic bowel secondary to incarcerated ventral hernia left with open abdomen. POD#18 s/p abdominal exploration with segmental small bowel resection. abthera placement POD#18 s/p abdominal exploration, small bowel resection for ischemia, abthera placement POD#12 s/p abdominal exploration with small bowel anastamosis and abthera vac placement POD#8 s/p abdomen closure with mesh Afebrile and stable off pressors. Renal failure, continue dialysis per nephrology Respiratory insufficiency, wean to extubation per liability claims examiner Anemia likely due to illness and procedural losses. No clinical signs of identifiable bleeding. will follow up CT scan. If there is identifiable bleeding, wound consult IR. Continue supportive care. Prognosis is guarded. Subjective Date of service: 01/09/21 Narrative: No acute events overnight. Patient continues to be more alert but agitated on ventilator. Patient started on trickle feeds. Patient is being prepared for CAT scan to look for any source of bleeding for continuously dropping H/H. Objective Vital Signs - 12hr 01/09/21 01/09/21 01/09/21 05:00 05:15 05:30 Temperature Pulse Rate 64 65 64 Pulse Rate [ From Monitor] Pulse Rate [ Right Dorsalis Pedis] Respiratory 24 24 24 Rate Blood Pressure 91/55 91/55 100/56 O2 Sat by Pulse 96 97 99 Oximetry 01/09/21 01/09/21 01/09/21 05:45 06:01 06:15 Temperature Pulse Rate 63 79 66 Pulse Rate [ From Monitor] Pulse Rate [ Right Dorsalis Pedis] Respiratory 24 22 24 Rate Blood Pressure 100/56 154/79 154/79 O2 Sat by Pulse 98 95 97 Oximetry 01/09/21 01/09/21 01/09/21 06:30 06:45 07:00 Temperature Pulse Rate 67 65 65 Pulse Rate [ From Monitor] Pulse Rate [ Right Dorsalis Pedis] Respiratory 24 24 24 Rate Blood Pressure 128/64 154/79 115/60 O2 Sat by Pulse 97 97 99 Oximetry 01/09/21 01/09/21 01/09/21 07:15 07:30 07:45 Temperature Pulse Rate 67 64 67 Pulse Rate [ From Monitor] Pulse Rate [ Right Dorsalis Pedis] Respiratory 24 24 24 Rate Blood Pressure 115/60 120/61 120/61 O2 Sat by Pulse 97 99 98 Oximetry 01/09/21 01/09/21 01/09/21 08:00 08:02 08:15 Temperature 97.8 F Pulse Rate 70 67 71 Pulse Rate [ 67 From Monitor] Pulse Rate [ Right Dorsalis Pedis] Respiratory 24 24 Rate Blood Pressure 133/66 133/66 133/66 O2 Sat by Pulse 97 96 94 Oximetry 01/09/21 01/09/21 01/09/21 08:30 08:45 09:00 Temperature Pulse Rate 69 69 72 Pulse Rate [ From Monitor] Pulse Rate [ Right Dorsalis Pedis] Respiratory 24 24 24 Rate Blood Pressure 118/61 118/61 129/70 O2 Sat by Pulse 99 99 98 Oximetry 01/09/21 01/09/21 01/09/21 09:15 09:31 09:45 Temperature Pulse Rate 66 66 65 Pulse Rate [ From Monitor] Pulse Rate [ Right Dorsalis Pedis] Respiratory 24 24 24 Rate Blood Pressure 129/70 129/70 129/70 O2 Sat by Pulse 97 96 98 Oximetry 01/09/21 01/09/21 01/09/21 10:00 10:15 10:31 Temperature Pulse Rate 66 67 66 Pulse Rate [ From Monitor] Pulse Rate [ Right Dorsalis Pedis] Respiratory 24 24 24 Rate Blood Pressure 111/63 111/63 111/63 O2 Sat by Pulse 99 97 97 Oximetry 01/09/21 01/09/21 01/09/21 10:45 11:01 11:14 Temperature Pulse Rate 69 77 75 Pulse Rate [ From Monitor] Pulse Rate [ Right Dorsalis Pedis] Respiratory 24 15 Rate Blood Pressure 111/63 96/59 96/59 O2 Sat by Pulse 98 92 99 Oximetry 01/09/21 01/09/21 01/09/21 11:15 11:31 11:45 Temperature Pulse Rate 71 71 72 Pulse Rate [ From Monitor] Pulse Rate [ Right Dorsalis Pedis] Respiratory 24 24 24 Rate Blood Pressure 96/59 96/59 96/59 O2 Sat by Pulse 96 98 97 Oximetry 01/09/21 01/09/21 01/09/21 12:00 12:15 12:28 Temperature 98 F Pulse Rate 69 65 Pulse Rate [ 66 From Monitor] Pulse Rate [ Right Dorsalis Pedis] Respiratory 24 24 Rate Blood Pressure 93/53 93/53 O2 Sat by Pulse 92 100 Oximetry 01/09/21 01/09/21 01/09/21 12:31 12:45 13:00 Temperature Pulse Rate 65 66 64 Pulse Rate [ From Monitor] Pulse Rate [ Right Dorsalis Pedis] Respiratory 24 24 24 Rate Blood Pressure 103/63 103/63 115/65 O2 Sat by Pulse 98 98 98 Oximetry 01/09/21 01/09/21 01/09/21 13:15 13:30 13:46 Temperature Pulse Rate 70 66 69 Pulse Rate [ From Monitor] Pulse Rate [ Right Dorsalis Pedis] Respiratory 24 24 24 Rate Blood Pressure 115/65 115/65 115/65 O2 Sat by Pulse 93 95 93 Oximetry 01/09/21 01/09/21 01/09/21 14:00 14:16 14:30 Temperature Pulse Rate 70 67 66 Pulse Rate [ From Monitor] Pulse Rate [ Right Dorsalis Pedis] Respiratory 24 24 24 Rate Blood Pressure 120/70 120/70 120/70 O2 Sat by Pulse 96 96 Oximetry 01/09/21 01/09/21 01/09/21 14:46 15:00 15:16 Temperature Pulse Rate 85 79 83 Pulse Rate [ From Monitor] Pulse Rate [ Right Dorsalis Pedis] Respiratory 19 22 28 H Rate Blood Pressure 120/70 120/70 153/110 O2 Sat by Pulse 98 100 98 Oximetry 01/09/21 01/09/21 01/09/21 15:30 15:46 15:58 Temperature Pulse Rate 88 83 88 Pulse Rate [ From Monitor] Pulse Rate [ Right Dorsalis Pedis] Respiratory 15 21 Rate Blood Pressure 153/110 153/110 O2 Sat by Pulse 95 99 Oximetry 01/09/21 01/09/21 16:00 16:34 Temperature Pulse Rate 90 Pulse Rate [ 92 H From Monitor] Pulse Rate [ 92 H Right Dorsalis Pedis] Respiratory 23 Rate Blood Pressure 212/105 211/99 O2 Sat by Pulse 98 Oximetry - General physical appearance well developed, no distress, obese - Respiratory normal expansion, normal respiratory effort, other (intubated on ventilator) - Abdomen soft, other (incision c/d/i, LAURA drains serous, NGT bilious) - Labs 01/09/21 10:10 01/09/21 08:45 Diabetes panel 01/09/21 Range/Units 08:45 Sodium 129 L (137-145) mmol/L Potassium 4.1 (3.6-5.0) mmol/L Chloride 92.7 L (98-107) mmol/L Carbon Dioxide 19 L (22-30) mmol/L BUN 105 H (9-20) mg/dL Creatinine 4.4 H (0.8-1.3) mg/dL Glucose 107 H (75-100) mg/dL Calcium 8.7 (8.4-10.2) mg/dL AST 20 (5-40) units/L ALT 18 (7-56) units/L Alkaline Phosphatase 99 (35-129) units/L Total Protein 5.3 L (6.3-8.2) g/dL Albumin 1.6 L (3.9-5) g/dL Calcium panel 01/09/21 Range/Units 08:45 Calcium 8.7 (8.4-10.2) mg/dL Phosphorus 5.00 H (2.5-4.5) mg/dL Albumin 1.6 L (3.9-5) g/dL Pituitary panel 01/09/21 Range/Units 08:45 Sodium 129 L (137-145) mmol/L Potassium 4.1 (3.6-5.0) mmol/L Chloride 92.7 L (98-107) mmol/L Carbon Dioxide 19 L (22-30) mmol/L BUN 105 H (9-20) mg/dL Creatinine 4.4 H (0.8-1.3) mg/dL Glucose 107 H (75-100) mg/dL Calcium 8.7 (8.4-10.2) mg/dL Adrenal panel 01/09/21 Range/Units 08:45 Sodium 129 L (137-145) mmol/L Potassium 4.1 (3.6-5.0) mmol/L Chloride 92.7 L (98-107) mmol/L Carbon Dioxide 19 L (22-30) mmol/L BUN 105 H (9-20) mg/dL Creatinine 4.4 H (0.8-1.3) mg/dL Glucose 107 H (75-100) mg/dL Calcium 8.7 (8.4-10.2) mg/dL Total Bilirubin 0.50 (0.1-1.2) mg/dL AST 20 (5-40) units/L ALT 18 (7-56) units/L Alkaline Phosphatase 99 (35-129) units/L Total Protein 5.3 L (6.3-8.2) g/dL Albumin 1.6 L (3.9-5) g/dL
[2021-01-09] MEDS: METOCLOPRAMIDE 10 MG/2 ML INJ IV SCH ×2 (18:05→23:13)
--- NOTE | 2021-01-09 18:19 | Cat Scan Report ---
CT abdomen pelvis w con, CT chest w con INDICATION / CLINICAL INFORMATION: source of bleeding; hgb downtrending with out. TECHNIQUE: Axial CT images were obtained through the chest, abdomen, pelvis after IV contrast. All CT scans at t his location are performed using CT dose reduction for ALARA by means of automated exposure control. COMPARISON: Multiple CTs, most recent from 12/20/2020 FINDINGS: Endotracheal tube terminates the midtrachea. There is a right sided central venous catheter, which te rminates in the lower SVC. Thoracic aorta is normal in caliber. No evidence of dissection or aneurysm . No central pulmonary embolus. Multiple enlarged mediastinal and bilateral hilar lymph nodes noted, favored to be reactive. There are small left and trace right pleural effusions. Diffuse interlobular septal thickening and scattered groundglass opacities and airspace consolidations, greatest in the laura ng bases. No pneumothorax. There is diffuse anasarca without organized collection. No acute osseous f indings. ABDOMEN/PELVIS: No acute findings in the liver, pancreas, spleen, adrenals. Gallbladder appears unchanged with cholel ithiasis. No evidence of cholecystitis. No biliary dilatation. No acute abnormality of the kidneys. No hydronephrosis. Lawrence catheter partially decompresses the gregory dder. Interval postsurgical changes of exploratory laparotomy with multiple midline skin nav. There is extensive inflammatory stranding along the anterior abdominal wall. Evaluation for residual/recurrent hernia is limited. No organized collection. Enteric catheter terminates in the stomach. Small bowel and colon demonstrate no evidence of mechanical obstruction or inflammation. Large organized collecti on is now present along the anterior abdomen, measuring 24.6 cm in transverse dimension and up to 29 cm in craniocaudal dimension. Collection contains relatively bland appearing free fluid without assoc iated gas. There is no contrast seen within the collection. No intraperitoneal free air. 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 This is unchanged from most recent contrast enhanced CT from 05/07/2019. 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 The bypass graft appears patent. Left il iac vein catheter terminates in the IVC. There is diffuse anasarca without organized collection ident ified within the subcutaneous tissues. No acute osseous findings. IMPRESSION: 1. Large organized relatively bland appearing fluid collection along the anterior abdomen, measuring up to 29 cm in craniocaudal dimension and 24.6 cm in transverse dimension. This may reflect postopera tive seroma or hematoma. No associated gas to suggest superimposed infection. No contrast is seen wit hin the collection to suggest bowel perforation. 2. Findings CHF with small left and trace right pleural effusions and diffuse groundglass opacities a nd airspace consolidations, consistent with pulmonary edema. Superimposed multifocal pneumonia is not excluded. 3. Diffuse anasarca, likely related to third spacing of fluid. No organized collection. 4. Other chronic and incidental findings as above. Signer Name: Tyrone Stein MD Signed: 01/09/2021 6:14 PM Workstation Name: [id number]
[2021-01-09] MEDS ORDERED: TOTAL PARENTERAL NUTRITION 1,999.92 ML IV SCH (20:00)
[2021-01-10] MEDS: INSULIN REGULAR, HUMAN 100 UNITS/1 ML SUB-Q SCH ×4 (00:05→19:03)
--- NOTE | 2021-01-10 03:16 | XRay Report ---
CHEST 1 VIEW 01/10/2021 2:10 AM INDICATION / CLINICAL INFORMATION: ventilated; eval for infiltrates/consolidation. COMPARISON: 01/05/2021 FINDINGS: SUPPORT DEVICES: Stable, satisfactory device positioning. HEART / MEDIASTINUM: No significant abnormality. LUNGS / PLEURA: Diffuse bilateral pulmonary opacities persist No pneumothorax. ADDITIONAL FINDINGS: No significant additional findings. IMPRESSION: 1. No significant change Signer Name: Rodrick Altman MD Signed: 01/10/2021 3:12 AM Workstation Name: [id number]
[2021-01-10] MEDS: HYDROmorphone 1 MG/1 ML INJ IV PRN ×3 (04:23→17:15)
[2021-01-10 04:31] LABS: Hematocrit 24.9 % (35.5-45.6); Hemoglobin 8.1 gm/dl (11.8-15.2); Mean Corpuscular HGB Conc 32 % (32-34); Mean Corpuscular Volume 86 fl (84-94); Platelet Count 257 K/mm3 (140-440); Red Blood Count 2.89 M/mm3 (3.65-5.03); Red Cell Distribution Width 16.6 % (13.2-15.2)
[2021-01-10 04:35] LABS: INR 1.17 (0.87-1.13)
[2021-01-10 04:36] LABS: Partial Thromboplastin Time 40.2 Sec. (24.2-36.6)
[2021-01-10 04:48] LABS: Albumin 2.1 g/dL (3.9-5)
[2021-01-10] MEDS: METOCLOPRAMIDE 10 MG/2 ML INJ IV SCH ×3 (05:48→19:03)
[2021-01-10] MEDS: HEPARIN 5,000 UNIT/1 ML VIAL SUB-Q SCH ×3 (05:49→21:05)
[2021-01-10 06:48] LABS: Band Neutrophils # (Manual) 0.3 K/mm3; Total Cells Counted 100
[2021-01-10 06:49] LABS: Anisocytosis Few; Hypochromasia Few; Platelet Estimate Consistent w Auto
[2021-01-10] MEDS ORDERED: SODIUM CHLORIDE 0.9% 100 ML IV PRN (09:08)
--- NOTE | 2021-01-10 09:10 | Progress Note ---
Assessment and Plan Impression * Nonoliguric acute kidney injury secondary to ATN --HD initiated December 30 * Incarcerated hernia with ischemic bowel. Status post bowel resection * Hypernatremia, now with hyponatremia * Fluid overload * Sepsis * Respiratory failure, intubated * Hyperkalemia * Metabolic Acidosis, Gap * Hypoalbuminemia * Anemia Recommendations * Hemodialysis today for solute clearance. No UF today. Patient with good UOP appx 2.5L- clear yellow urine. * Maintain haley cathteter for strict I/O * Transfuse for Hb < 7 * TPN per nutrition/primary * Pressors prn to maintain MAP greater than 65 * Avoid nephrotoxins * Monitor fluid status and electrolytes * Primary and consult notes reviewed Subjective Date of service: 01/10/21 Principal diagnosis: SBO and necrosis of large part of small intestine Interval history: No acute events overnight. FiO2 35%, PEEP 8. Objective - Vital Signs Vital signs: Vital Signs - 12hr 01/09/21 01/09/21 01/09/21 21:16 21:30 21:46 Temperature Pulse Rate 70 70 70 Pulse Rate [ From Monitor] Respiratory 24 24 24 Rate Blood Pressure 136/77 144/80 144/80 O2 Sat by Pulse 97 95 98 Oximetry 01/09/21 01/09/21 01/09/21 22:00 22:16 22:30 Temperature Pulse Rate 69 69 69 Pulse Rate [ From Monitor] Respiratory 24 24 24 Rate Blood Pressure 146/78 146/78 147/80 O2 Sat by Pulse 97 97 95 Oximetry 01/09/21 01/09/21 01/09/21 22:46 23:00 23:16 Temperature Pulse Rate 68 69 69 Pulse Rate [ From Monitor] Respiratory 24 24 24 Rate Blood Pressure 147/80 149/80 149/80 O2 Sat by Pulse 98 95 97 Oximetry 01/09/21 01/09/21 01/10/21 23:30 23:46 00:00 Temperature 97.6 F Pulse Rate 67 73 67 Pulse Rate [ 73 From Monitor] Respiratory 24 24 24 Rate Blood Pressure 150/79 150/79 149/77 O2 Sat by Pulse 95 97 94 Oximetry 01/10/21 01/10/21 01/10/21 00:10 00:16 00:30 Temperature Pulse Rate 68 69 68 Pulse Rate [ From Monitor] Respiratory 24 24 Rate Blood Pressure 149/77 149/77 157/84 O2 Sat by Pulse 98 98 94 Oximetry 01/10/21 01/10/21 01/10/21 00:46 01:00 01:16 Temperature Pulse Rate 65 66 65 Pulse Rate [ From Monitor] Respiratory 24 Rate Blood Pressure 157/84 158/83 158/83 O2 Sat by Pulse 98 95 98 Oximetry 01/10/21 01/10/21 01/10/21 01:30 01:46 02:00 Temperature Pulse Rate 67 65 66 Pulse Rate [ From Monitor] Respiratory 24 Rate Blood Pressure 160/84 160/84 157/83 O2 Sat by Pulse 98 98 95 Oximetry 01/10/21 01/10/21 01/10/21 02:16 02:30 02:46 Temperature Pulse Rate 65 66 65 Pulse Rate [ From Monitor] Respiratory 24 Rate Blood Pressure 157/83 164/84 157/83 O2 Sat by Pulse 99 97 98 Oximetry 01/10/21 01/10/21 01/10/21 03:00 03:16 03:30 Temperature Pulse Rate 68 66 64 Pulse Rate [ From Monitor] Respiratory 24 Rate Blood Pressure 155/83 155/83 150/81 O2 Sat by Pulse 93 98 96 Oximetry 01/10/21 01/10/21 01/10/21 03:46 04:00 04:16 Temperature 97.9 F Pulse Rate 63 64 63 Pulse Rate [ 61 From Monitor] Respiratory 24 Rate Blood Pressure 150/81 158/83 158/83 O2 Sat by Pulse 98 96 98 Oximetry 01/10/21 01/10/21 01/10/21 04:30 04:46 05:00 Temperature Pulse Rate 59 L 63 70 Pulse Rate [ From Monitor] Respiratory 24 Rate Blood Pressure 161/80 161/80 142/74 O2 Sat by Pulse 97 98 93 Oximetry 01/10/21 01/10/21 01/10/21 05:16 05:30 05:46 Temperature Pulse Rate 67 63 64 Pulse Rate [ From Monitor] Respiratory 24 Rate Blood Pressure 142/74 141/74 142/74 O2 Sat by Pulse 98 95 98 Oximetry 01/10/21 01/10/21 01/10/21 06:00 06:16 06:30 Temperature Pulse Rate 63 62 59 L Pulse Rate [ From Monitor] Respiratory 24 Rate Blood Pressure 139/72 139/72 140/70 O2 Sat by Pulse 95 98 96 Oximetry 01/10/21 01/10/21 01/10/21 06:35 06:46 07:00 Temperature 97.7 F Pulse Rate 61 70 Pulse Rate [ From Monitor] Respiratory 24 24 Rate Blood Pressure 140/70 144/77 O2 Sat by Pulse 98 97 Oximetry 01/10/21 01/10/21 01/10/21 07:09 07:16 07:30 Temperature 98.1 F Pulse Rate 64 70 Pulse Rate [ From Monitor] Respiratory 24 14 Rate Blood Pressure 140/70 155/77 O2 Sat by Pulse 98 99 Oximetry 01/10/21 01/10/21 01/10/21 07:42 07:46 08:00 Temperature Pulse Rate 61 64 61 Pulse Rate [ 61 From Monitor] Respiratory 24 24 Rate Blood Pressure 144/77 145/73 O2 Sat by Pulse 99 99 Oximetry EENT: ATNC Respiratory: Present: Other (coarse BS) Cardiology: regular, S1S2 Gastrointestinal: absent bowel sounds, distended Integumentary: warm and dry Neurologic: other (Sedated) Musculoskeletal: other (1+ edema) - Lab 01/10/21 04:01 01/10/21 04:01 Most recent lab results ABG pH 7.273 (7.320-7.450) L 01/10/21 04:00 ABG pCO2 37.9 mm Hg 01/05/21 03:50 ABG pO2 136.8 mm Hg (80.0-90.0) H 01/05/21 03:50 ABG HCO3 22.4 mmol/L (20.0-26.0) 01/05/21 03:50 ABG O2 Saturation 97.0 (0-100) 01/10/21 04:00 Calcium 9.0 mg/dL (8.4-10.2) 01/10/21 04:01 Phosphorus 5.70 mg/dL (2.5-4.5) H 01/10/21 04:01 Magnesium 2.10 mg/dL (1.7-2.3) 01/10/21 04:01 Urine Creatinine 78.1 mg/dL (0.1-20.0) H 12/23/20 12:15 Urine Sodium 13 mmol/L 12/23/20 12:15 Medications & Allergies - Medications Allergies/Adverse Reactions: Allergies Iodinated Contrast Media Adverse Reaction (Verified 09/04/18 14:20) Unknown Home Medications: Home Medications Medication Instructions Recorded Confirmed Last Taken Type Aspirin 81 mg PO DAILY #30 tab.chew 09/08/18 01/04/21 03/31/20 09:28 Rx AtorvaSTATin [Lipitor] 80 mg PO QHS tablet 05/08/19 01/04/21 03/28/20 Rx Albuterol Sulfate [Proventil Hfa] 13.4 gm IH Q6H #1 hfa.aer.ad 04/01/20 01/04/21 Unknown Rx Clopidogrel [Plavix] 75 mg PO DAILY #30 tablet 04/01/20 01/04/21 Unknown Rx Gabapentin 300 mg PO BID@0700,1800 30 Days 04/01/20 01/04/21 Unknown Rx capsule Gabapentin 600 mg PO QHS 30 Days capsule 04/01/20 01/04/21 Unknown Rx Metoprolol [Lopressor TAB] 25 mg PO BID #60 tablet 04/01/20 01/04/21 Unknown Rx Surprise-3/Dha/Epa/Fish Oil [Surprise 3 1 each PO BID #60 capsule 04/01/20 01/04/21 Unknown Rx 500 Softgel] Tiotropium [place] [Spiriva] 2 puff IH DAILY #30 cap.w.dev 04/01/20 01/04/21 Unknown Rx Ubidecarenone [Co Q-10] 10 mg PO BID #60 tab 04/01/20 01/04/21 03/29/20 Rx cilostazoL [Pletal] 50 mg PO BID 30 Days tablet 04/01/20 01/04/21 Unknown Rx oxyCODONE /ACETAMINOPHEN [Percocet 2 tab PO Q6H PRN tablet 04/01/20 01/04/21 Unknown Rx 5/325 mg] Phosphorus #1 [K-Phos Neutral] 250 mg PO QID 2 Days #8 tablet 09/14/20 01/04/21 Unknown Rx Active Medications: Generic Name Dose Route Start Last Admin Trade Name Freq PRN Reason Stop Dose Admin Acetaminophen 650 mg 12/21/20 11:51 12/25/20 20:35 Acetaminophen 650 Mg Rect Supp PA 650 mg Q4H PRN Administration TEMP >/=100.4 Lipase/Protease/Amylase 1 each 01/07/21 08:44 Lipase 10,500/Protease 25,000/Amylase 43,750 (Units) Dr Cap FEEDTUBE PRN PRN For Clogged Feeding Tube Bisacodyl 10 mg 12/30/20 11:00 01/09/21 12:20 Bisacodyl 10 Mg Rect Supp PA Not Given QDAY ASCENCION Dextrose 50 ml 12/24/20 10:49 Dextrose 50% In Water (25gm) 50 Ml Syringe IV Q30MIN PRN Hypoglycemia Protocol Famotidine 20 mg 12/26/20 10:00 01/09/21 13:58 Famotidine 20 Mg/2 Ml Inj IV 20 mg DAILY ASCENCION Administration Heparin Sodium (Porcine) 5,000 unit 01/06/21 14:00 01/10/21 05:49 Heparin 5,000 Unit/1 Ml Vial SUB-Q 5,000 unit Q8HR ASCENCION Administration Hydralazine HCl 10 mg 01/09/21 16:13 01/09/21 16:34 Hydralazine 20 Mg/1 Ml Inj IV 10 mg Q4H PRN Administration Hypertension Hydromorphone HCl 1 mg 01/06/21 15:58 01/10/21 04:23 Hydromorphone 1 Mg/1 Ml Inj IV 1 mg Q4H PRN Administration Pain , Severe (7-10) Hydrophilic Ointment 1 applic 12/20/20 21:58 Lip Therapy Vaseline TP Q2HR PRN Dry Lips Fentanyl Citrate 2,000 mcg in 100 mls @ 6.01 mls/hr 12/20/20 22:00 01/10/21 05:39 Fentanyl Drip Premix IV 1 mcg/kg/hr TITR ASCENCION 6.01 mls/hr Titration Protocol 1 MCG/KG/HR Propofol 1,000 mg in 100 mls @ 3.606 mls/hr 12/20/20 22:00 01/10/21 07:36 Diprivan 10 Mg/Ml IV 20 mcg/kg/min TITR ASCENCION 14.424 mls/hr Administration Protocol 5 MCG/KG/MIN NORepinephrine/NS 8 MG-250 ML 8 mg in 250 mls @ 3.75 mls/hr 12/21/20 09:00 01/02/21 06:15 Norepinephrine/Ns 8 Mg-250 Ml (Double Conc) IV 0 mcg/min TITRATE ASCENCION 0 mls/hr Titration Protocol 2 MCG/MIN Vasopressin 20 unit/ Sodium 101 mls @ 9.09 mls/hr 12/24/20 09:00 01/02/21 09:49 Chloride IV 0 units/min TITR ASCENCION 0 mls/hr Titration Protocol 0.03 UNITS/MIN Sodium Chloride 100 mls @ 999 mls/hr 01/03/21 10:21 Nacl 0.9% IV MARILU PRN Hypotension Dexmedetomidine HCl 400 mcg/ 104 mls @ 7.322 mls/hr 01/04/21 11:00 01/10/21 07:36 Sodium Chloride IV 0.8 mcg/kg/hr TITRATE ASCENCION 29.286 mls/hr Titration Protocol 0.2 MCG/KG/HR Amino Acids/Electrolytes/Dextrose 1,999.92 mls @ 83.33 mls/hr 01/09/21 20:00 01/09/21 20:36 Tpn Adult IV 01/10/21 19:59 83.33 mls/hr DAILY@1999 ASCENCION Administration Protocol Insulin Human Regular 0 units 12/28/20 00:00 01/10/21 06:05 Insulin Regular, Human 100 Units/1 Ml SUB-Q Not Given Q6H [facility] Protocol Metoclopramide HCl 5 mg 01/09/21 18:00 01/10/21 05:48 Metoclopramide 10 Mg/2 Ml Inj IV 5 mg Q6HR ASCENCION Administration Multi-Ingred Cream/Lotion/Oil/Oint 1 applic 12/20/20 21:58 01/03/21 01:13 Mineral Oil/Petrolatum, White Ophth Oint 3.5 Gm OU 1 applic Q4HR PRN Administration Dry Eye(s) Simple Syrup 15 ml 01/07/21 08:44 Simple Syrup 15 Ml FEEDTUBE PRN PRN Hypoglycemia Simple Syrup 30 ml 01/07/21 08:44 Simple Syrup 15 Ml FEEDTUBE PRN PRN Hypoglycemia Sodium Bicarbonate 325 mg 01/07/21 08:44 Sodium Bicarbonate 325 Mg Tab FEEDTUBE PRN PRN For Clogged Feeding Tube Sodium Chloride 10 ml 12/20/20 22:00 01/09/21 21:08 Sodium Chloride 0.9% 10 Ml Flush Syringe IV 10 ml BID ASCENCINO Administration Sodium Chloride 10 ml 12/20/20 16:42 Sodium Chloride 0.9% 10 Ml Flush Syringe IV PRN PRN LINE FLUSH
--- NOTE | 2021-01-10 10:57 | Progress Note ---
Assessment and Plan 60 y/o male with abdominal catastrophe, s/p ex-lap with open abdomen, ventilated for pain control and support. 01/10/21: Spoke with surgery this am about CT findings. Will discuss with IR their thoughts on fluid. Not concerned about infection in that area. Main reason for CT was to see if we could figure out where blood was going as it was coming out of his bottom or NG contents. This is appears to be something small and slow, like a venous issues. Hopefully it has sealed off at this time. HgB is up to 8 this am patient did not get blood on yesterday. Off fent now, will continue to wean Diprovan and Precedex as tolerated. Spoke with CM and asked to send out to LTACH's but will steal try to aggressively wean. Making good urine, hopeful kidney's will recover. Will ask renal about other ways to remove volume in third spacing (albumin, lasix etc). Prognosis still remains guarded. Continue TPN for now. 01/09/21: Will obtain contrasted CT of abdomen and pelvis to look for potential pockets of blood or bleeding. Spoke with renal and they feel kidneys are recovering but ok with HD tomorrow if needed post dye load. Will attempt to wean Fent more and use prn dilaudid. Will start reglan to help with gut motility. Hopeful to be off TPN soon. Once sedation is off, can start SBT's. CCT 31 minutes. Subjective Date of service: 01/10/21 Principal diagnosis: SBO and necrosis of large part of small intestine Interval history: No acute events. Getting HD right now. CT shows large fluid collection, unsure if seroma or hematoma. HgB is stable now. Objective Vital Signs - 12hr 01/09/21 01/09/21 01/09/21 23:00 23:16 23:30 Temperature Pulse Rate 69 69 67 Pulse Rate [ From Monitor] Respiratory 24 24 24 Rate Blood Pressure 149/80 149/80 150/79 O2 Sat by Pulse 95 97 95 Oximetry O2 Sat by Pulse Oximetry [ Anterior Bilateral Throughout] 01/09/21 01/10/21 01/10/21 23:46 00:00 00:10 Temperature 97.6 F Pulse Rate 73 67 68 Pulse Rate [ 73 From Monitor] Respiratory 24 24 Rate Blood Pressure 150/79 149/77 149/77 O2 Sat by Pulse 97 94 98 Oximetry O2 Sat by Pulse Oximetry [ Anterior Bilateral Throughout] 01/10/21 01/10/21 01/10/21 00:16 00:30 00:46 Temperature Pulse Rate 69 68 65 Pulse Rate [ From Monitor] Respiratory 24 24 24 Rate Blood Pressure 149/77 157/84 157/84 O2 Sat by Pulse 98 94 98 Oximetry O2 Sat by Pulse Oximetry [ Anterior Bilateral Throughout] 01/10/21 01/10/21 01/10/21 01:00 01:16 01:30 Temperature Pulse Rate 66 65 67 Pulse Rate [ From Monitor] Respiratory 24 24 24 Rate Blood Pressure 158/83 158/83 160/84 O2 Sat by Pulse 95 98 98 Oximetry O2 Sat by Pulse Oximetry [ Anterior Bilateral Throughout] 01/10/21 01/10/21 01/10/21 01:46 02:00 02:16 Temperature Pulse Rate 65 66 65 Pulse Rate [ From Monitor] Respiratory 24 24 24 Rate Blood Pressure 160/84 157/83 157/83 O2 Sat by Pulse 98 95 99 Oximetry O2 Sat by Pulse Oximetry [ Anterior Bilateral Throughout] 01/10/21 01/10/21 01/10/21 02:30 02:46 03:00 Temperature Pulse Rate 66 65 68 Pulse Rate [ From Monitor] Respiratory 24 24 24 Rate Blood Pressure 164/84 157/83 155/83 O2 Sat by Pulse 97 98 93 Oximetry O2 Sat by Pulse Oximetry [ Anterior Bilateral Throughout] 01/10/21 01/10/21 01/10/21 03:16 03:30 03:46 Temperature Pulse Rate 66 64 63 Pulse Rate [ From Monitor] Respiratory 24 24 24 Rate Blood Pressure 155/83 150/81 150/81 O2 Sat by Pulse 98 96 98 Oximetry O2 Sat by Pulse Oximetry [ Anterior Bilateral Throughout] 01/10/21 01/10/21 01/10/21 04:00 04:16 04:30 Temperature 97.9 F Pulse Rate 64 63 59 L Pulse Rate [ 61 From Monitor] Respiratory 24 24 24 Rate Blood Pressure 158/83 158/83 161/80 O2 Sat by Pulse 96 98 97 Oximetry O2 Sat by Pulse Oximetry [ Anterior Bilateral Throughout] 01/10/21 01/10/21 01/10/21 04:46 05:00 05:16 Temperature Pulse Rate 63 70 67 Pulse Rate [ From Monitor] Respiratory 24 24 24 Rate Blood Pressure 161/80 142/74 142/74 O2 Sat by Pulse 98 93 98 Oximetry O2 Sat by Pulse Oximetry [ Anterior Bilateral Throughout] 01/10/21 01/10/21 01/10/21 05:30 05:46 06:00 Temperature Pulse Rate 63 64 63 Pulse Rate [ From Monitor] Respiratory 24 24 24 Rate Blood Pressure 141/74 142/74 139/72 O2 Sat by Pulse 95 98 95 Oximetry O2 Sat by Pulse Oximetry [ Anterior Bilateral Throughout] 01/10/21 01/10/21 01/10/21 06:16 06:30 06:35 Temperature 97.7 F Pulse Rate 62 59 L Pulse Rate [ From Monitor] Respiratory 24 24 Rate Blood Pressure 139/72 140/70 O2 Sat by Pulse 98 96 Oximetry O2 Sat by Pulse Oximetry [ Anterior Bilateral Throughout] 01/10/21 01/10/21 01/10/21 06:46 07:00 07:09 Temperature 98.1 F Pulse Rate 61 70 Pulse Rate [ From Monitor] Respiratory 24 24 Rate Blood Pressure 140/70 144/77 O2 Sat by Pulse 98 97 Oximetry O2 Sat by Pulse Oximetry [ Anterior Bilateral Throughout] 01/10/21 01/10/21 01/10/21 07:16 07:30 07:42 Temperature Pulse Rate 64 70 61 Pulse Rate [ From Monitor] Respiratory 24 14 Rate Blood Pressure 140/70 155/77 O2 Sat by Pulse 98 99 Oximetry O2 Sat by Pulse Oximetry [ Anterior Bilateral Throughout] 01/10/21 01/10/21 01/10/21 07:46 08:00 08:16 Temperature 96.8 F L Pulse Rate 64 61 62 Pulse Rate [ 61 From Monitor] Respiratory 24 99 H 24 Rate Blood Pressure 144/77 164/76 155/77 O2 Sat by Pulse 99 35 L 99 Oximetry O2 Sat by Pulse Oximetry [ Anterior Bilateral Throughout] 01/10/21 01/10/21 01/10/21 08:30 08:35 08:46 Temperature Pulse Rate 61 64 75 Pulse Rate [ From Monitor] Respiratory 24 22 Rate Blood Pressure 144/73 144/73 144/73 O2 Sat by Pulse 97 100 94 Oximetry O2 Sat by Pulse Oximetry [ Anterior Bilateral Throughout] 01/10/21 01/10/21 01/10/21 09:00 09:10 09:15 Temperature 98.3 F Pulse Rate 77 78 71 Pulse Rate [ From Monitor] Respiratory 14 21 Rate Blood Pressure 156/76 160/76 161/78 O2 Sat by Pulse 90 Oximetry O2 Sat by Pulse 99 Oximetry [ Anterior Bilateral Throughout] 01/10/21 01/10/21 01/10/21 09:16 09:30 09:45 Temperature Pulse Rate 73 66 66 Pulse Rate [ From Monitor] Respiratory 17 17 Rate Blood Pressure 161/78 162/80 164/76 O2 Sat by Pulse 98 Oximetry O2 Sat by Pulse Oximetry [ Anterior Bilateral Throughout] 01/10/21 01/10/21 01/10/21 10:00 10:15 10:30 Temperature Pulse Rate 59 L 63 63 Pulse Rate [ From Monitor] Respiratory Rate Blood Pressure 157/76 151/72 149/71 O2 Sat by Pulse Oximetry O2 Sat by Pulse Oximetry [ Anterior Bilateral Throughout] 01/10/21 10:45 Temperature Pulse Rate 53 L Pulse Rate [ From Monitor] Respiratory Rate Blood Pressure 162/74 O2 Sat by Pulse Oximetry O2 Sat by Pulse Oximetry [ Anterior Bilateral Throughout] Constitutional: comatose (secondary to sedation.), other (critically ill on ventilator) Eyes: non-icteric ENT: oropharynx moist Neck: supple Effort: normal Ascultation: Bilateral: other (coarse BS bilaterally) Cardiovascular: other (tachy, RR; no mrg) Gastrointestinal: other (abdomen open) Integumentary: normal Extremities: no cyanosis, no edema, pink and warm Neurologic: other (sedated) CBC and BMP: 01/10/21 04:01 01/10/21 04:01 ABG, PT/INR, D-dimer: ABG ABG pH 7.273 (7.320-7.450) L 01/10/21 04:00 POC ABG pCO2 38.6 mmHg (32.0-48.0) 01/10/21 04:00 ABG pCO2 37.9 mm Hg 01/05/21 03:50 POC ABG pO2 97.3 mmHg (83-108) 01/10/21 04:00 ABG pO2 136.8 mm Hg (80.0-90.0) H 01/05/21 03:50 POC ABG HCO3 17.4 01/10/21 04:00 ABG O2 Saturation 97.0 (0-100) 01/10/21 04:00 PT/INR, D-dimer PT 15.4 Sec. (12.2-14.9) H 01/10/21 04:01 INR 1.17 (0.87-1.13) H 01/10/21 04:01 Abnormal lab findings: Abnormal Labs 12/20/20 12/20/20 12/20/20 13:58 13:58 13:58 WBC 41.1 H* RBC 5.59 H Hgb 16.2 H Hct 47.7 H MCV MCHC RDW 15.5 H Plt Count 486 H Seg Neuts % (Manual) Lymphocytes % (Manual) Seg Neutrophils # Man Lymphocytes # (Manual) Monocytes # (Manual) PT INR APTT Fibrinogen ABG pH POC ABG pCO2 POC ABG pO2 ABG pO2 ABG Base Excess ABG Hemoglobin ABG Oxyhemoglobin ABG Sodium ABG Potassium ABG Chloride ABG Glucose Carboxyhemoglobin Sodium 130 L Potassium Chloride 80.7 L Carbon Dioxide BUN 37 H Creatinine Glucose 101 H POC Glucose Lactic Acid 3.20 H* Calcium Ionized Calcium Phosphorus Magnesium AST Alkaline Phosphatase 142 H Total Protein 6.2 L Albumin 2.2 L Triglycerides Arterial Blood Glucose Arterial Blood Ionized Calcium Urine Creatinine Crossmatch 12/20/20 12/20/20 12/20/20 13:58 20:35 21:30 WBC RBC Hgb Hct MCV MCHC RDW Plt Count Seg Neuts % (Manual) Lymphocytes % (Manual) Seg Neutrophils # Man Lymphocytes # (Manual) Monocytes # (Manual) PT INR APTT 49.4 H Fibrinogen ABG pH 7.313 L POC ABG pCO2 POC ABG pO2 ABG pO2 104.4 H ABG Base Excess ABG Hemoglobin ABG Oxyhemoglobin ABG Sodium ABG Potassium ABG Chloride ABG Glucose Carboxyhemoglobin Sodium Potassium Chloride Carbon Dioxide BUN Creatinine Glucose POC Glucose 122 H Lactic Acid Calcium Ionized Calcium Phosphorus Magnesium AST Alkaline Phosphatase Total Protein Albumin Triglycerides Arterial Blood Glucose Arterial Blood Ionized Calcium Urine Creatinine Crossmatch 12/21/20 12/21/20 12/21/20 03:06 08:14 08:14 WBC 23.9 H RBC Hgb Hct MCV MCHC RDW 15.7 H Plt Count Seg Neuts % (Manual) 91.0 H Lymphocytes % (Manual) 3.0 L Seg Neutrophils # Man 21.7 H Lymphocytes # (Manual) 0.7 L Monocytes # (Manual) 1.4 H PT INR APTT Fibrinogen ABG pH 7.464 H POC ABG pCO2 POC ABG pO2 202.9 H ABG pO2 ABG Base Excess ABG Hemoglobin ABG Oxyhemoglobin ABG Sodium 133.7 L ABG Potassium ABG Chloride ABG Glucose 122 H Carboxyhemoglobin Sodium Potassium Chloride Carbon Dioxide BUN 46 H Creatinine Glucose 103 H POC Glucose Lactic Acid Calcium 6.6 L D Ionized Calcium Phosphorus Magnesium AST Alkaline Phosphatase Total Protein 5.4 L Albumin 2.3 L Triglycerides Arterial Blood Glucose 122 H Arterial Blood Ionized Calcium 3.5 L Urine Creatinine Crossmatch 12/21/20 12/21/20 12/22/20 17:18 21:28 04:45 WBC 22.9 H RBC Hgb Hct MCV MCHC RDW 15.7 H Plt Count Seg Neuts % (Manual) Lymphocytes % (Manual) Seg Neutrophils # Man Lymphocytes # (Manual) Monocytes # (Manual) PT INR APTT Fibrinogen ABG pH POC ABG pCO2 POC ABG pO2 ABG pO2 ABG Base Excess ABG Hemoglobin ABG Oxyhemoglobin ABG Sodium ABG Potassium ABG Chloride ABG Glucose Carboxyhemoglobin Sodium Potassium Chloride Carbon Dioxide BUN Creatinine Glucose POC Glucose 108 H Lactic Acid Calcium Ionized Calcium 4.1 L Phosphorus Magnesium AST Alkaline Phosphatase Total Protein Albumin Triglycerides Arterial Blood Glucose Arterial Blood Ionized Calcium Urine Creatinine Crossmatch 12/22/20 12/22/20 12/22/20 04:45 05:00 11:38 WBC RBC Hgb Hct MCV MCHC RDW Plt Count Seg Neuts % (Manual) Lymphocytes % (Manual) Seg Neutrophils # Man Lymphocytes # (Manual) Monocytes # (Manual) PT INR APTT Fibrinogen ABG pH 7.462 H POC ABG pCO2 POC ABG pO2 ABG pO2 ABG Base Excess ABG Hemoglobin ABG Oxyhemoglobin ABG Sodium ABG Potassium ABG Chloride ABG Glucose 118 H Carboxyhemoglobin Sodium 146 H Potassium Chloride Carbon Dioxide BUN 45 H Creatinine Glucose 116 H POC Glucose 115 H Lactic Acid Calcium 6.9 L Ionized Calcium Phosphorus Magnesium AST Alkaline Phosphatase Total Protein Albumin Triglycerides Arterial Blood Glucose 118 H Arterial Blood Ionized Calcium 3.8 L Urine Creatinine Crossmatch 12/22/20 12/23/20 12/23/20 23:26 04:43 04:45 WBC 22.2 H RBC Hgb Hct MCV MCHC RDW 16.1 H Plt Count Seg Neuts % (Manual) Lymphocytes % (Manual) Seg Neutrophils # Man Lymphocytes # (Manual) Monocytes # (Manual) PT INR APTT Fibrinogen ABG pH POC ABG pCO2 POC ABG pO2 ABG pO2 ABG Base Excess ABG Hemoglobin ABG Oxyhemoglobin ABG Sodium 147.4 H ABG Potassium ABG Chloride 112.0 H ABG Glucose 130 H Carboxyhemoglobin 0.4 L Sodium Potassium Chloride Carbon Dioxide BUN Creatinine Glucose POC Glucose 110 H Lactic Acid Calcium Ionized Calcium Phosphorus Magnesium AST Alkaline Phosphatase Total Protein Albumin Triglycerides Arterial Blood Glucose 130 H Arterial Blood Ionized Calcium 3.8 L Urine Creatinine Crossmatch 12/23/20 12/23/20 12/23/20 04:45 05:17 11:22 WBC RBC Hgb Hct MCV MCHC RDW Plt Count Seg Neuts % (Manual) Lymphocytes % (Manual) Seg Neutrophils # Man Lymphocytes # (Manual) Monocytes # (Manual) PT INR APTT Fibrinogen ABG pH POC ABG pCO2 POC ABG pO2 ABG pO2 ABG Base Excess ABG Hemoglobin ABG Oxyhemoglobin ABG Sodium ABG Potassium ABG Chloride ABG Glucose Carboxyhemoglobin Sodium 154 H D Potassium Chloride 110.9 H Carbon Dioxide BUN 54 H Creatinine 1.8 H Glucose 115 H POC Glucose 116 H 130 H Lactic Acid Calcium 7.0 L Ionized Calcium Phosphorus Magnesium AST Alkaline Phosphatase Total Protein Albumin Triglycerides Arterial Blood Glucose Arterial Blood Ionized Calcium Urine Creatinine Crossmatch 12/23/20 12/23/20 12/23/20 12:15 12:15 23:15 WBC RBC Hgb Hct MCV MCHC RDW Plt Count Seg Neuts % (Manual) Lymphocytes % (Manual) Seg Neutrophils # Man Lymphocytes # (Manual) Monocytes # (Manual) PT INR APTT Fibrinogen ABG pH POC ABG pCO2 POC ABG pO2 ABG pO2 ABG Base Excess ABG Hemoglobin ABG Oxyhemoglobin ABG Sodium ABG Potassium ABG Chloride ABG Glucose Carboxyhemoglobin Sodium 154 H Potassium Chloride Carbon Dioxide BUN Creatinine 1.5 H Glucose POC Glucose 132 H Lactic Acid Calcium Ionized Calcium Phosphorus Magnesium AST Alkaline Phosphatase Total Protein Albumin Triglycerides Arterial Blood Glucose Arterial Blood Ionized Calcium Urine Creatinine 78.1 H Crossmatch 12/24/20 12/24/20 12/24/20 04:19 04:30 04:30 WBC 18.3 H RBC Hgb Hct MCV MCHC RDW 16.5 H Plt Count Seg Neuts % (Manual) Lymphocytes % (Manual) Seg Neutrophils # Man Lymphocytes # (Manual) Monocytes # (Manual) PT INR APTT Fibrinogen ABG pH POC ABG pCO2 POC ABG pO2 ABG pO2 ABG Base Excess ABG Hemoglobin ABG Oxyhemoglobin ABG Sodium 149.7 H ABG Potassium ABG Chloride 116.0 H ABG Glucose 180 H Carboxyhemoglobin Sodium 155 H Potassium Chloride 116.1 H Carbon Dioxide BUN 52 H Creatinine 1.5 H Glucose 175 H POC Glucose Lactic Acid Calcium 6.8 L Ionized Calcium Phosphorus Magnesium 3.00 H AST Alkaline Phosphatase Total Protein 5.7 L Albumin 1.8 L Triglycerides Arterial Blood Glucose 180 H Arterial Blood Ionized Calcium 3.7 L Urine Creatinine Crossmatch 12/24/20 12/24/20 12/24/20 05:24 11:21 18:05 WBC RBC Hgb Hct MCV MCHC RDW Plt Count Seg Neuts % (Manual) Lymphocytes % (Manual) Seg Neutrophils # Man Lymphocytes # (Manual) Monocytes # (Manual) PT INR APTT Fibrinogen ABG pH POC ABG pCO2 POC ABG pO2 ABG pO2 ABG Base Excess ABG Hemoglobin ABG Oxyhemoglobin ABG Sodium ABG Potassium ABG Chloride ABG Glucose Carboxyhemoglobin Sodium Potassium Chloride Carbon Dioxide BUN Creatinine Glucose POC Glucose 153 H 154 H 133 H Lactic Acid Calcium Ionized Calcium Phosphorus Magnesium AST Alkaline Phosphatase Total Protein Albumin Triglycerides Arterial Blood Glucose Arterial Blood Ionized Calcium Urine Creatinine Crossmatch 12/25/20 12/25/20 12/25/20 04:00 07:00 07:00 WBC 17.6 H RBC Hgb Hct MCV MCHC 31 L RDW 16.0 H Plt Count Seg Neuts % (Manual) Lymphocytes % (Manual) Seg Neutrophils # Man Lymphocytes # (Manual) Monocytes # (Manual) PT INR APTT Fibrinogen ABG pH POC ABG pCO2 POC ABG pO2 ABG pO2 ABG Base Excess ABG Hemoglobin ABG Oxyhemoglobin ABG Sodium 152.5 H ABG Potassium ABG Chloride 119.0 H ABG Glucose 136 H Carboxyhemoglobin Sodium Potassium Chloride Carbon Dioxide BUN Creatinine Glucose POC Glucose Lactic Acid Calcium Ionized Calcium Phosphorus Magnesium 2.70 H AST Alkaline Phosphatase Total Protein Albumin Triglycerides Arterial Blood Glucose 136 H Arterial Blood Ionized Calcium 3.7 L Urine Creatinine Crossmatch 12/25/20 12/25/20 12/25/20 07:00 11:24 16:32 WBC RBC Hgb Hct MCV MCHC RDW Plt Count Seg Neuts % (Manual) Lymphocytes % (Manual) Seg Neutrophils # Man Lymphocytes # (Manual) Monocytes # (Manual) PT INR APTT Fibrinogen ABG pH POC ABG pCO2 POC ABG pO2 ABG pO2 ABG Base Excess ABG Hemoglobin ABG Oxyhemoglobin ABG Sodium ABG Potassium ABG Chloride ABG Glucose Carboxyhemoglobin Sodium 156 H Potassium Chloride 118.0 H Carbon Dioxide BUN 44 H Creatinine 1.7 H Glucose 126 H POC Glucose 110 H 126 H Lactic Acid Calcium 6.9 L Ionized Calcium Phosphorus Magnesium AST Alkaline Phosphatase Total Protein Albumin Triglycerides Arterial Blood Glucose Arterial Blood Ionized Calcium Urine Creatinine Crossmatch 12/25/20 12/25/20 12/26/20 18:18 23:23 03:30 WBC RBC Hgb Hct MCV MCHC RDW Plt Count Seg Neuts % (Manual) Lymphocytes % (Manual) Seg Neutrophils # Man Lymphocytes # (Manual) Monocytes # (Manual) PT INR APTT Fibrinogen ABG pH POC ABG pCO2 POC ABG pO2 ABG pO2 ABG Base Excess ABG Hemoglobin 11.8 L ABG Oxyhemoglobin ABG Sodium ABG Potassium 4.7 H ABG Chloride 114.0 H ABG Glucose 132 H Carboxyhemoglobin Sodium 151 H Potassium Chloride 114.3 H Carbon Dioxide BUN 51 H Creatinine 2.6 H D Glucose 122 H POC Glucose 115 H Lactic Acid Calcium 6.4 L Ionized Calcium Phosphorus Magnesium AST Alkaline Phosphatase Total Protein Albumin Triglycerides Arterial Blood Glucose 132 H Arterial Blood Ionized Calcium 3.6 L Urine Creatinine Crossmatch 12/26/20 12/26/20 12/26/20 04:55 06:01 06:01 WBC 21.6 H RBC Hgb Hct MCV MCHC 31 L RDW 16.5 H Plt Count 136 L Seg Neuts % (Manual) Lymphocytes % (Manual) Seg Neutrophils # Man Lymphocytes # (Manual) Monocytes # (Manual) PT INR APTT Fibrinogen ABG pH POC ABG pCO2 POC ABG pO2 ABG pO2 ABG Base Excess ABG Hemoglobin ABG Oxyhemoglobin ABG Sodium ABG Potassium ABG Chloride ABG Glucose Carboxyhemoglobin Sodium 173 H* D Potassium 6.1 H* D Chloride 137.0 H Carbon Dioxide BUN 73 H Creatinine 3.8 H Glucose 125 H POC Glucose 112 H Lactic Acid Calcium 6.2 L Ionized Calcium Phosphorus 5.70 H D Magnesium 2.90 H AST Alkaline Phosphatase Total Protein Albumin Triglycerides Arterial Blood Glucose Arterial Blood Ionized Calcium Urine Creatinine Crossmatch 06/02/0812/26/20 12/26/20 08:33 11:19 22:00 WBC RBC Hgb Hct MCV MCHC RDW Plt Count Seg Neuts % (Manual) Lymphocytes % (Manual) Seg Neutrophils # Man Lymphocytes # (Manual) Monocytes # (Manual) PT INR APTT Fibrinogen ABG pH POC ABG pCO2 POC ABG pO2 ABG pO2 ABG Base Excess ABG Hemoglobin ABG Oxyhemoglobin ABG Sodium ABG Potassium ABG Chloride ABG Glucose Carboxyhemoglobin Sodium 147 H D Potassium 5.8 H D Chloride 108.8 H Carbon Dioxide 21 L BUN 68 H 68 H Creatinine 3.8 H 4.1 H Glucose 144 H 154 H POC Glucose 144 H Lactic Acid Calcium 6.5 L 5.8 L* Ionized Calcium Phosphorus Magnesium AST 215 H Alkaline Phosphatase Total Protein 4.7 L Albumin 1.5 L Triglycerides Arterial Blood Glucose Arterial Blood Ionized Calcium Urine Creatinine Crossmatch 12/26/20 12/26/20 12/27/20 23:13 Unknown 00:25 WBC RBC Hgb 11.1 L Hct MCV MCHC RDW Plt Count Seg Neuts % (Manual) Lymphocytes % (Manual) Seg Neutrophils # Man Lymphocytes # (Manual) Monocytes # (Manual) PT INR APTT Fibrinogen ABG pH POC ABG pCO2 POC ABG pO2 ABG pO2 ABG Base Excess ABG Hemoglobin ABG Oxyhemoglobin ABG Sodium ABG Potassium ABG Chloride ABG Glucose Carboxyhemoglobin Sodium Potassium Chloride Carbon Dioxide BUN Creatinine Glucose POC Glucose 163 H Lactic Acid Calcium Ionized Calcium Phosphorus 5.60 H Magnesium AST Alkaline Phosphatase Total Protein Albumin Triglycerides Arterial Blood Glucose Arterial Blood Ionized Calcium Urine Creatinine Crossmatch 12/27/20 12/27/20 12/27/20 02:57 04:15 04:15 WBC 28.5 H RBC Hgb 11.2 L Hct MCV MCHC 31 L RDW 16.5 H Plt Count 130 L Seg Neuts % (Manual) Lymphocytes % (Manual) Seg Neutrophils # Man Lymphocytes # (Manual) Monocytes # (Manual) PT INR APTT Fibrinogen ABG pH 7.238 L POC ABG pCO2 POC ABG pO2 139.1 H ABG pO2 ABG Base Excess ABG Hemoglobin 11.2 L ABG Oxyhemoglobin ABG Sodium 133.8 L ABG Potassium 5.2 H ABG Chloride ABG Glucose 182 H Carboxyhemoglobin Sodium 136 L Potassium 6.0 H Chloride Carbon Dioxide 18 L BUN 68 H Creatinine 4.1 H Glucose 166 H POC Glucose Lactic Acid Calcium 6.2 L Ionized Calcium Phosphorus 7.30 H D Magnesium AST Alkaline Phosphatase Total Protein Albumin Triglycerides 164 H Arterial Blood Glucose 182 H Arterial Blood Ionized Calcium 3.4 L Urine Creatinine Crossmatch 12/27/20 12/27/20 12/27/20 04:50 10:51 11:17 WBC RBC Hgb Hct MCV MCHC RDW Plt Count Seg Neuts % (Manual) Lymphocytes % (Manual) Seg Neutrophils # Man Lymphocytes # (Manual) Monocytes # (Manual) PT INR APTT Fibrinogen ABG pH POC ABG pCO2 POC ABG pO2 ABG pO2 ABG Base Excess ABG Hemoglobin ABG Oxyhemoglobin ABG Sodium ABG Potassium ABG Chloride ABG Glucose Carboxyhemoglobin Sodium Potassium Chloride Carbon Dioxide BUN Creatinine Glucose POC Glucose 140 H 113 H 154 H Lactic Acid Calcium Ionized Calcium Phosphorus Magnesium AST Alkaline Phosphatase Total Protein Albumin Triglycerides Arterial Blood Glucose Arterial Blood Ionized Calcium Urine Creatinine Crossmatch 12/27/20 12/27/20 12/27/20 12:40 14:40 23:17 WBC RBC Hgb Hct MCV MCHC RDW Plt Count Seg Neuts % (Manual) Lymphocytes % (Manual) Seg Neutrophils # Man Lymphocytes # (Manual) Monocytes # (Manual) PT INR APTT Fibrinogen ABG pH POC ABG pCO2 POC ABG pO2 ABG pO2 ABG Base Excess ABG Hemoglobin ABG Oxyhemoglobin ABG Sodium ABG Potassium ABG Chloride ABG Glucose Carboxyhemoglobin Sodium 135 L Potassium Chloride Carbon Dioxide 21 L BUN 62 H Creatinine 3.8 H Glucose 132 H POC Glucose 130 H Lactic Acid Calcium 5.6 L* Ionized Calcium 3.3 L Phosphorus Magnesium AST Alkaline Phosphatase Total Protein Albumin Triglycerides Arterial Blood Glucose Arterial Blood Ionized Calcium Urine Creatinine Crossmatch 12/28/20 12/28/20 12/28/20 05:36 07:08 07:28 WBC 27.2 H RBC 3.50 L Hgb 9.6 L Hct 30.8 L MCV MCHC 31 L RDW 16.1 H Plt Count 111 L Seg Neuts % (Manual) 95.0 H Lymphocytes % (Manual) Seg Neutrophils # Man 25.8 H Lymphocytes # (Manual) 0.0 L Monocytes # (Manual) 1.1 H PT INR APTT Fibrinogen ABG pH 7.200 L POC ABG pCO2 POC ABG pO2 67.2 L ABG pO2 ABG Base Excess ABG Hemoglobin 10.3 L ABG Oxyhemoglobin 89.6 L ABG Sodium 127.8 L ABG Potassium 5.1 H ABG Chloride ABG Glucose 132 H Carboxyhemoglobin 0.4 L Sodium Potassium Chloride Carbon Dioxide BUN Creatinine Glucose POC Glucose 128 H Lactic Acid Calcium Ionized Calcium Phosphorus Magnesium AST Alkaline Phosphatase Total Protein Albumin Triglycerides Arterial Blood Glucose 132 H Arterial Blood Ionized Calcium 3.5 L Urine Creatinine Crossmatch 12/28/20 12/28/20 12/28/20 07:28 11:37 13:25 WBC RBC Hgb Hct MCV MCHC RDW Plt Count Seg Neuts % (Manual) Lymphocytes % (Manual) Seg Neutrophils # Man Lymphocytes # (Manual) Monocytes # (Manual) PT INR APTT Fibrinogen ABG pH POC ABG pCO2 POC ABG pO2 ABG pO2 ABG Base Excess ABG Hemoglobin ABG Oxyhemoglobin ABG Sodium ABG Potassium ABG Chloride ABG Glucose Carboxyhemoglobin Sodium 131 L 133 L Potassium 5.9 H 5.1 H Chloride 97.1 L Carbon Dioxide 15 L 21 L BUN 70 H 77 H Creatinine 4.0 H 4.4 H Glucose 118 H 140 H POC Glucose 135 H Lactic Acid Calcium 6.3 L 6.3 L Ionized Calcium Phosphorus 7.10 H Magnesium AST 144 H Alkaline Phosphatase Total Protein 4.8 L Albumin 1.3 L Triglycerides Arterial Blood Glucose Arterial Blood Ionized Calcium Urine Creatinine Crossmatch 12/28/20 12/28/20 12/29/20 16:38 23:28 03:08 WBC RBC Hgb Hct MCV MCHC RDW Plt Count Seg Neuts % (Manual) Lymphocytes % (Manual) Seg Neutrophils # Man Lymphocytes # (Manual) Monocytes # (Manual) PT INR APTT Fibrinogen ABG pH 7.301 L POC ABG pCO2 POC ABG pO2 151.1 H ABG pO2 ABG Base Excess ABG Hemoglobin 8.7 L ABG Oxyhemoglobin 98.2 H ABG Sodium 123.4 L ABG Potassium ABG Chloride 97.0 L ABG Glucose 144 H Carboxyhemoglobin Sodium Potassium Chloride Carbon Dioxide BUN Creatinine Glucose POC Glucose 140 H 134 H Lactic Acid Calcium Ionized Calcium Phosphorus Magnesium AST Alkaline Phosphatase Total Protein Albumin Triglycerides Arterial Blood Glucose 144 H Arterial Blood Ionized Calcium 3.4 L Urine Creatinine Crossmatch 12/29/20 12/29/20 12/29/20 05:20 05:20 06:01 WBC 21.0 H RBC 2.89 L Hgb 8.1 L Hct 25.5 L MCV MCHC RDW 16.1 H Plt Count 124 L Seg Neuts % (Manual) Lymphocytes % (Manual) Seg Neutrophils # Man Lymphocytes # (Manual) Monocytes # (Manual) PT INR APTT Fibrinogen ABG pH POC ABG pCO2 POC ABG pO2 ABG pO2 ABG Base Excess ABG Hemoglobin ABG Oxyhemoglobin ABG Sodium ABG Potassium ABG Chloride ABG Glucose Carboxyhemoglobin Sodium 131 L Potassium Chloride 93.4 L Carbon Dioxide BUN 79 H Creatinine 4.7 H Glucose 122 H POC Glucose 108 H Lactic Acid Calcium 5.5 L* Ionized Calcium Phosphorus 5.70 H Magnesium 1.60 L AST Alkaline Phosphatase Total Protein Albumin Triglycerides Arterial Blood Glucose Arterial Blood Ionized Calcium Urine Creatinine Crossmatch 12/29/20 12/29/20 12/29/20 10:04 11:27 17:31 WBC RBC Hgb Hct MCV MCHC RDW Plt Count Seg Neuts % (Manual) Lymphocytes % (Manual) Seg Neutrophils # Man Lymphocytes # (Manual) Monocytes # (Manual) PT INR APTT Fibrinogen ABG pH POC ABG pCO2 POC ABG pO2 ABG pO2 ABG Base Excess ABG Hemoglobin ABG Oxyhemoglobin ABG Sodium ABG Potassium ABG Chloride ABG Glucose Carboxyhemoglobin Sodium Potassium Chloride Carbon Dioxide BUN Creatinine Glucose POC Glucose 107 H 112 H 110 H Lactic Acid Calcium Ionized Calcium Phosphorus Magnesium AST Alkaline Phosphatase Total Protein Albumin Triglycerides Arterial Blood Glucose Arterial Blood Ionized Calcium Urine Creatinine Crossmatch 12/30/20 12/30/20 12/30/20 03:31 08:06 17:39 WBC RBC Hgb Hct MCV MCHC RDW Plt Count Seg Neuts % (Manual) Lymphocytes % (Manual) Seg Neutrophils # Man Lymphocytes # (Manual) Monocytes # (Manual) PT INR APTT Fibrinogen ABG pH 7.261 L POC ABG pCO2 POC ABG pO2 123.1 H ABG pO2 ABG Base Excess ABG Hemoglobin 8.7 L ABG Oxyhemoglobin ABG Sodium 123.2 L ABG Potassium ABG Chloride 96.0 L ABG Glucose 112 H Carboxyhemoglobin Sodium 128 L Potassium Chloride 90.7 L Carbon Dioxide 21 L BUN 86 H Creatinine 4.9 H Glucose 107 H POC Glucose 134 H Lactic Acid Calcium 6.2 L Ionized Calcium Phosphorus 5.30 H Magnesium 1.50 L AST Alkaline Phosphatase Total Protein Albumin Triglycerides Arterial Blood Glucose 112 H Arterial Blood Ionized Calcium 3.2 L Urine Creatinine Crossmatch 12/30/20 12/31/20 12/31/20 22:45 02:14 04:40 WBC RBC Hgb Hct MCV MCHC RDW Plt Count Seg Neuts % (Manual) Lymphocytes % (Manual) Seg Neutrophils # Man Lymphocytes # (Manual) Monocytes # (Manual) PT INR APTT Fibrinogen ABG pH 7.267 L POC ABG pCO2 POC ABG pO2 ABG pO2 ABG Base Excess ABG Hemoglobin 8.0 L ABG Oxyhemoglobin 93.7 L ABG Sodium ABG Potassium ABG Chloride 95.0 L ABG Glucose 108 H Carboxyhemoglobin 1.7 H Sodium 126 L Potassium Chloride 90.3 L Carbon Dioxide 20 L BUN 70 H Creatinine 4.3 H Glucose 209 H POC Glucose 109 H Lactic Acid Calcium 6.6 L Ionized Calcium Phosphorus 4.70 H Magnesium 1.60 L AST Alkaline Phosphatase Total Protein Albumin Triglycerides 157 H Arterial Blood Glucose 108 H Arterial Blood Ionized Calcium 3.7 L Urine Creatinine Crossmatch 12/31/20 12/31/20 01/01/21 16:23 23:21 04:00 WBC 18.0 H RBC 2.75 L Hgb 7.7 L Hct 23.9 L MCV MCHC RDW 15.6 H Plt Count Seg Neuts % (Manual) 91.0 H Lymphocytes % (Manual) 6.0 L Seg Neutrophils # Man 16.4 H Lymphocytes # (Manual) 1.1 L Monocytes # (Manual) PT INR APTT Fibrinogen ABG pH 7.264 L POC ABG pCO2 POC ABG pO2 74.8 L ABG pO2 ABG Base Excess ABG Hemoglobin 7.1 L ABG Oxyhemoglobin 92.1 L ABG Sodium 124.9 L ABG Potassium ABG Chloride 95.0 L ABG Glucose 111 H Carboxyhemoglobin 1.7 H Sodium Potassium Chloride Carbon Dioxide BUN Creatinine Glucose POC Glucose 125 H Lactic Acid Calcium Ionized Calcium Phosphorus Magnesium AST Alkaline Phosphatase Total Protein Albumin Triglycerides Arterial Blood Glucose 111 H Arterial Blood Ionized Calcium 4.0 L Urine Creatinine Crossmatch 01/01/21 01/01/21 01/01/21 05:50 13:41 15:55 WBC RBC Hgb Hct MCV MCHC RDW Plt Count Seg Neuts % (Manual) Lymphocytes % (Manual) Seg Neutrophils # Man Lymphocytes # (Manual) Monocytes # (Manual) PT INR APTT Fibrinogen ABG pH 7.148 L 7.207 L POC ABG pCO2 53.1 H POC ABG pO2 57.3 L 138.4 H ABG pO2 ABG Base Excess ABG Hemoglobin 9.0 L 8.3 L ABG Oxyhemoglobin 83.2 L ABG Sodium 126.2 L 124.5 L ABG Potassium ABG Chloride 95.0 L 95.0 L ABG Glucose 96 H 120 H Carboxyhemoglobin Sodium 131 L Potassium Chloride 93.3 L Carbon Dioxide 21 L BUN 67 H Creatinine 4.2 H Glucose POC Glucose Lactic Acid Calcium 7.1 L Ionized Calcium Phosphorus Magnesium AST 60 H Alkaline Phosphatase Total Protein 4.8 L Albumin 1.4 L Triglycerides Arterial Blood Glucose 96 H 120 H Arterial Blood Ionized Calcium 4.1 L 3.9 L Urine Creatinine Crossmatch 01/01/21 01/01/21 01/02/21 17:09 23:24 03:47 WBC RBC Hgb Hct MCV MCHC RDW Plt Count Seg Neuts % (Manual) Lymphocytes % (Manual) Seg Neutrophils # Man Lymphocytes # (Manual) Monocytes # (Manual) PT INR APTT Fibrinogen ABG pH 7.276 L POC ABG pCO2 POC ABG pO2 173.6 H ABG pO2 ABG Base Excess ABG Hemoglobin 7 L ABG Oxyhemoglobin ABG Sodium 122.4 L ABG Potassium ABG Chloride 94.0 L ABG Glucose 118 H Carboxyhemoglobin Sodium Potassium Chloride Carbon Dioxide BUN Creatinine Glucose POC Glucose 124 H 119 H Lactic Acid Calcium Ionized Calcium Phosphorus Magnesium AST Alkaline Phosphatase Total Protein Albumin Triglycerides Arterial Blood Glucose 118 H Arterial Blood Ionized Calcium 4.0 L Urine Creatinine Crossmatch 01/02/21 01/02/21 01/02/21 05:33 08:00 08:00 WBC 19.7 H RBC 2.53 L Hgb 7.1 L Hct 22.0 L MCV MCHC RDW 16.4 H Plt Count Seg Neuts % (Manual) Lymphocytes % (Manual) Seg Neutrophils # Man Lymphocytes # (Manual) Monocytes # (Manual) PT INR APTT Fibrinogen ABG pH POC ABG pCO2 POC ABG pO2 ABG pO2 ABG Base Excess ABG Hemoglobin ABG Oxyhemoglobin ABG Sodium ABG Potassium ABG Chloride ABG Glucose Carboxyhemoglobin Sodium 127 L Potassium Chloride 89.3 L Carbon Dioxide 19 L BUN 82 H Creatinine 5.0 H Glucose 103 H POC Glucose 107 H Lactic Acid Calcium 7.8 L Ionized Calcium Phosphorus 6.40 H Magnesium AST 47 H Alkaline Phosphatase Total Protein 5.0 L Albumin 1.6 L Triglycerides Arterial Blood Glucose Arterial Blood Ionized Calcium Urine Creatinine Crossmatch 01/02/21 01/03/21 01/03/21 17:25 07:56 09:47 WBC 17.7 H RBC 2.19 L Hgb 6.2 L Hct 18.5 L* MCV MCHC RDW 16.1 H Plt Count Seg Neuts % (Manual) Lymphocytes % (Manual) Seg Neutrophils # Man Lymphocytes # (Manual) Monocytes # (Manual) PT INR APTT Fibrinogen ABG pH POC ABG pCO2 POC ABG pO2 ABG pO2 ABG Base Excess ABG Hemoglobin ABG Oxyhemoglobin ABG Sodium ABG Potassium ABG Chloride ABG Glucose Carboxyhemoglobin Sodium 130 L Potassium 3.5 L Chloride 90.3 L Carbon Dioxide BUN 68 H Creatinine 3.9 H Glucose 103 H POC Glucose 116 H Lactic Acid Calcium 8.0 L Ionized Calcium Phosphorus 4.80 H D Magnesium AST Alkaline Phosphatase Total Protein Albumin Triglycerides Arterial Blood Glucose Arterial Blood Ionized Calcium Urine Creatinine Crossmatch 01/03/21 01/03/21 01/04/21 11:00 19:00 03:12 WBC 17.0 H RBC 2.51 L Hgb 7.1 L Hct 21.5 L MCV MCHC RDW 16.6 H Plt Count Seg Neuts % (Manual) Lymphocytes % (Manual) Seg Neutrophils # Man Lymphocytes # (Manual) Monocytes # (Manual) PT INR APTT Fibrinogen ABG pH 7.463 H POC ABG pCO2 POC ABG pO2 72.2 L ABG pO2 ABG Base Excess ABG Hemoglobin 6.2 L ABG Oxyhemoglobin 91.8 L ABG Sodium 128.4 L ABG Potassium 3.3 L ABG Chloride 96.0 L ABG Glucose 112 H Carboxyhemoglobin Sodium Potassium Chloride Carbon Dioxide BUN Creatinine Glucose POC Glucose Lactic Acid Calcium Ionized Calcium Phosphorus Magnesium AST Alkaline Phosphatase Total Protein Albumin Triglycerides Arterial Blood Glucose 112 H Arterial Blood Ionized Calcium 4.3 L Urine Creatinine Crossmatch See Detail 01/04/21 01/04/21 01/04/21 05:16 06:20 06:20 WBC 18.5 H RBC 2.53 L Hgb 7.4 L Hct 21.9 L MCV MCHC RDW 15.8 H Plt Count Seg Neuts % (Manual) Lymphocytes % (Manual) Seg Neutrophils # Man Lymphocytes # (Manual) Monocytes # (Manual) PT INR APTT Fibrinogen ABG pH POC ABG pCO2 POC ABG pO2 ABG pO2 ABG Base Excess ABG Hemoglobin ABG Oxyhemoglobin ABG Sodium ABG Potassium ABG Chloride ABG Glucose Carboxyhemoglobin Sodium 135 L Potassium Chloride 95.2 L Carbon Dioxide BUN 56 H Creatinine 3.2 H Glucose 109 H POC Glucose 123 H Lactic Acid Calcium 7.6 L Ionized Calcium Phosphorus Magnesium AST Alkaline Phosphatase Total Protein Albumin Triglycerides Arterial Blood Glucose Arterial Blood Ionized Calcium Urine Creatinine Crossmatch 01/05/21 01/05/21 01/05/21 03:50 07:22 07:22 WBC 23.8 H RBC 2.93 L Hgb 8.2 L Hct 25.1 L MCV MCHC RDW 16.5 H Plt Count Seg Neuts % (Manual) Lymphocytes % (Manual) Seg Neutrophils # Man Lymphocytes # (Manual) Monocytes # (Manual) PT INR APTT Fibrinogen ABG pH POC ABG pCO2 POC ABG pO2 ABG pO2 136.8 H ABG Base Excess -2.3 L ABG Hemoglobin 6.9 L ABG Oxyhemoglobin ABG Sodium ABG Potassium ABG Chloride ABG Glucose Carboxyhemoglobin Sodium 134 L Potassium Chloride 93.3 L Carbon Dioxide BUN 77 H Creatinine 4.2 H Glucose 105 H POC Glucose Lactic Acid Calcium Ionized Calcium Phosphorus 4.90 H D Magnesium AST Alkaline Phosphatase Total Protein Albumin Triglycerides Arterial Blood Glucose Arterial Blood Ionized Calcium Urine Creatinine Crossmatch 01/05/21 01/05/21 01/05/21 11:02 14:06 15:37 WBC RBC Hgb Hct MCV MCHC RDW Plt Count Seg Neuts % (Manual) Lymphocytes % (Manual) Seg Neutrophils # Man Lymphocytes # (Manual) Monocytes # (Manual) PT INR APTT Fibrinogen ABG pH POC ABG pCO2 POC ABG pO2 332.3 H ABG pO2 ABG Base Excess ABG Hemoglobin 7.7 L ABG Oxyhemoglobin 98.7 H ABG Sodium 131.0 L ABG Potassium 3.3 L ABG Chloride 97.0 L ABG Glucose 118 H Carboxyhemoglobin Sodium Potassium Chloride Carbon Dioxide BUN Creatinine Glucose POC Glucose 118 H 111 H Lactic Acid Calcium Ionized Calcium Phosphorus Magnesium AST Alkaline Phosphatase Total Protein Albumin Triglycerides Arterial Blood Glucose 118 H Arterial Blood Ionized Calcium 4.4 L Urine Creatinine Crossmatch 01/05/21 01/06/21 01/06/21 23:18 04:00 04:20 WBC RBC Hgb Hct MCV MCHC RDW Plt Count Seg Neuts % (Manual) Lymphocytes % (Manual) Seg Neutrophils # Man Lymphocytes # (Manual) Monocytes # (Manual) PT INR APTT Fibrinogen ABG pH POC ABG pCO2 POC ABG pO2 230.5 H ABG pO2 ABG Base Excess ABG Hemoglobin 7.9 L ABG Oxyhemoglobin 98.5 H ABG Sodium 129.4 L ABG Potassium ABG Chloride 97.0 L ABG Glucose 117 H Carboxyhemoglobin Sodium 133 L Potassium Chloride 94.4 L Carbon Dioxide BUN 62 H Creatinine 3.6 H Glucose 110 H POC Glucose 110 H Lactic Acid Calcium 7.8 L Ionized Calcium Phosphorus Magnesium AST Alkaline Phosphatase Total Protein Albumin Triglycerides Arterial Blood Glucose 117 H Arterial Blood Ionized Calcium 4.5 L Urine Creatinine Crossmatch 01/06/21 01/06/21 01/06/21 05:28 09:00 11:00 WBC 15.2 H RBC 2.18 L Hgb 6.5 L Hct 21.8 L MCV 100 H MCHC 30 L RDW 18.5 H Plt Count Seg Neuts % (Manual) Lymphocytes % (Manual) Seg Neutrophils # Man Lymphocytes # (Manual) Monocytes # (Manual) PT INR APTT Fibrinogen ABG pH POC ABG pCO2 POC ABG pO2 ABG pO2 ABG Base Excess ABG Hemoglobin ABG Oxyhemoglobin ABG Sodium ABG Potassium ABG Chloride ABG Glucose Carboxyhemoglobin Sodium Potassium Chloride Carbon Dioxide BUN Creatinine Glucose POC Glucose 109 H Lactic Acid Calcium Ionized Calcium Phosphorus Magnesium AST Alkaline Phosphatase Total Protein Albumin Triglycerides Arterial Blood Glucose Arterial Blood Ionized Calcium Urine Creatinine Crossmatch See Detail 01/06/21 01/06/21 01/07/21 11:32 23:44 03:10 WBC 15.3 H RBC 2.30 L Hgb 6.7 L Hct 20.1 L MCV MCHC RDW 16.6 H Plt Count Seg Neuts % (Manual) Lymphocytes % (Manual) Seg Neutrophils # Man Lymphocytes # (Manual) Monocytes # (Manual) PT INR APTT Fibrinogen ABG pH POC ABG pCO2 POC ABG pO2 ABG pO2 ABG Base Excess ABG Hemoglobin ABG Oxyhemoglobin ABG Sodium ABG Potassium ABG Chloride ABG Glucose Carboxyhemoglobin Sodium Potassium Chloride Carbon Dioxide BUN Creatinine Glucose POC Glucose 113 H 118 H Lactic Acid Calcium Ionized Calcium Phosphorus Magnesium AST Alkaline Phosphatase Total Protein Albumin Triglycerides Arterial Blood Glucose Arterial Blood Ionized Calcium Urine Creatinine Crossmatch 01/07/21 01/07/21 01/07/21 03:10 04:17 05:06 WBC RBC Hgb Hct MCV MCHC RDW Plt Count Seg Neuts % (Manual) Lymphocytes % (Manual) Seg Neutrophils # Man Lymphocytes # (Manual) Monocytes # (Manual) PT INR APTT Fibrinogen ABG pH 7.272 L POC ABG pCO2 50.1 H POC ABG pO2 ABG pO2 ABG Base Excess ABG Hemoglobin 8.4 L ABG Oxyhemoglobin ABG Sodium 128.6 L ABG Potassium ABG Chloride 95.0 L ABG Glucose 109 H Carboxyhemoglobin Sodium 133 L Potassium Chloride 93.6 L Carbon Dioxide BUN 85 H Creatinine 3.9 H Glucose 112 H POC Glucose 106 H Lactic Acid Calcium Ionized Calcium Phosphorus 4.70 H D Magnesium AST Alkaline Phosphatase Total Protein Albumin Triglycerides Arterial Blood Glucose 109 H Arterial Blood Ionized Calcium Urine Creatinine Crossmatch 01/07/21 01/07/21 01/07/21 14:05 16:00 23:25 WBC RBC Hgb 8.1 L Hct 24.2 L MCV MCHC RDW Plt Count Seg Neuts % (Manual) Lymphocytes % (Manual) Seg Neutrophils # Man Lymphocytes # (Manual) Monocytes # (Manual) PT INR APTT Fibrinogen ABG pH POC ABG pCO2 POC ABG pO2 ABG pO2 ABG Base Excess ABG Hemoglobin 7.2 L ABG Oxyhemoglobin ABG Sodium 127.3 L ABG Potassium ABG Chloride 96.0 L ABG Glucose 98 H Carboxyhemoglobin Sodium Potassium Chloride Carbon Dioxide BUN Creatinine Glucose POC Glucose 106 H Lactic Acid Calcium Ionized Calcium Phosphorus Magnesium AST Alkaline Phosphatase Total Protein Albumin Triglycerides Arterial Blood Glucose 98 H Arterial Blood Ionized Calcium Urine Creatinine Crossmatch 01/08/21 01/08/21 01/08/21 03:22 05:30 23:22 WBC RBC Hgb Hct MCV MCHC RDW Plt Count Seg Neuts % (Manual) Lymphocytes % (Manual) Seg Neutrophils # Man Lymphocytes # (Manual) Monocytes # (Manual) PT INR APTT Fibrinogen ABG pH POC ABG pCO2 POC ABG pO2 71.3 L ABG pO2 ABG Base Excess ABG Hemoglobin 8.7 L ABG Oxyhemoglobin 92.2 L ABG Sodium 125.9 L ABG Potassium ABG Chloride 96.0 L ABG Glucose 124 H Carboxyhemoglobin Sodium Potassium Chloride Carbon Dioxide BUN Creatinine Glucose POC Glucose 118 H 110 H Lactic Acid Calcium Ionized Calcium Phosphorus Magnesium AST Alkaline Phosphatase Total Protein Albumin Triglycerides Arterial Blood Glucose 124 H Arterial Blood Ionized Calcium Urine Creatinine Crossmatch 01/08/21 01/08/21 01/09/21 Unknown Unknown 08:45 WBC 15.2 H RBC 2.62 L Hgb 7.6 L Hct 22.7 L MCV MCHC RDW 16.7 H Plt Count Seg Neuts % (Manual) 95.0 H Lymphocytes % (Manual) 3.0 L Seg Neutrophils # Man 14.4 H Lymphocytes # (Manual) 0.5 L Monocytes # (Manual) PT INR APTT Fibrinogen ABG pH POC ABG pCO2 POC ABG pO2 ABG pO2 ABG Base Excess ABG Hemoglobin ABG Oxyhemoglobin ABG Sodium ABG Potassium ABG Chloride ABG Glucose Carboxyhemoglobin Sodium 129 L 129 L Potassium Chloride 91.2 L 92.7 L Carbon Dioxide 21 L 19 L BUN 91 H 105 H Creatinine 4.0 H 4.4 H Glucose 115 H 107 H POC Glucose Lactic Acid Calcium Ionized Calcium Phosphorus 5.00 H Magnesium AST Alkaline Phosphatase Total Protein 5.3 L Albumin 1.6 L Triglycerides 166 H Arterial Blood Glucose Arterial Blood Ionized Calcium Urine Creatinine Crossmatch 01/09/21 01/09/21 01/10/21 10:10 23:51 04:00 WBC 14.1 H RBC 2.50 L Hgb 7.2 L Hct 21.6 L MCV MCHC RDW 16.5 H Plt Count Seg Neuts % (Manual) 92.0 H Lymphocytes % (Manual) 2.0 L Seg Neutrophils # Man 13.0 H Lymphocytes # (Manual) 0.3 L Monocytes # (Manual) PT INR APTT Fibrinogen ABG pH 7.273 L POC ABG pCO2 POC ABG pO2 ABG pO2 ABG Base Excess ABG Hemoglobin 8.7 L ABG Oxyhemoglobin ABG Sodium 126.2 L ABG Potassium 4.8 H ABG Chloride 96.0 L ABG Glucose 160 H Carboxyhemoglobin Sodium Potassium Chloride Carbon Dioxide BUN Creatinine Glucose POC Glucose 154 H Lactic Acid Calcium Ionized Calcium Phosphorus Magnesium AST Alkaline Phosphatase Total Protein Albumin Triglycerides Arterial Blood Glucose 160 H Arterial Blood Ionized Calcium Urine Creatinine Crossmatch 01/10/21 01/10/21 01/10/21 04:01 04:01 04:01 WBC 12.6 H RBC 2.89 L Hgb 8.1 L Hct 24.9 L MCV MCHC RDW 16.6 H Plt Count Seg Neuts % (Manual) 95.0 H Lymphocytes % (Manual) 3.0 L Seg Neutrophils # Man 12.0 H Lymphocytes # (Manual) 0.4 L Monocytes # (Manual) PT 15.4 H INR 1.17 H APTT 40.2 H Fibrinogen 817 H ABG pH POC ABG pCO2 POC ABG pO2 ABG pO2 ABG Base Excess ABG Hemoglobin ABG Oxyhemoglobin ABG Sodium ABG Potassium ABG Chloride ABG Glucose Carboxyhemoglobin Sodium 128 L Potassium Chloride 90.4 L Carbon Dioxide 19 L BUN 113 H Creatinine 4.5 H Glucose 162 H POC Glucose Lactic Acid Calcium Ionized Calcium Phosphorus 5.70 H Magnesium AST Alkaline Phosphatase Total Protein 6.2 L Albumin 2.1 L Triglycerides Arterial Blood Glucose Arterial Blood Ionized Calcium Urine Creatinine Crossmatch 01/10/21 05:31 WBC RBC Hgb Hct MCV MCHC RDW Plt Count Seg Neuts % (Manual) Lymphocytes % (Manual) Seg Neutrophils # Man Lymphocytes # (Manual) Monocytes # (Manual) PT INR APTT Fibrinogen ABG pH POC ABG pCO2 POC ABG pO2 ABG pO2 ABG Base Excess ABG Hemoglobin ABG Oxyhemoglobin ABG Sodium ABG Potassium ABG Chloride ABG Glucose Carboxyhemoglobin Sodium Potassium Chloride Carbon Dioxide BUN Creatinine Glucose POC Glucose 150 H Lactic Acid Calcium Ionized Calcium Phosphorus Magnesium AST Alkaline Phosphatase Total Protein Albumin Triglycerides Arterial Blood Glucose Arterial Blood Ionized Calcium Urine Creatinine Crossmatch
--- NOTE | 2021-01-10 11:05 | Progress Note ---
<JOSE ROBERTO POLO - Last Filed: 01/10/21 13:38> Assessment and Plan Assessment and plan: 60-year-old male with obesity, hypertension, nicotine dependence, PVD s/p stent placement on dual antiplatelet therapy, hyperlipidemia, OA, GERD, ventral hernia and small bowel obstruction who was admitted with small bowel obstruction and peritonitis Septic Shock, POA (presented with leukocytosis, tachycardia, tachypnea,febrile and evidence of peritonitis) HPI -12/20 CT abdomen/pelvis showed high-grade small bowel obstruction related to severe complex ventral abdominal wall hernias, progressed in appearance from prior exam from 09/12/2020 without evidence of pneumonitis or pneumoperitoneum, patchy bibasilar airspace disease concern for atypical infectious process/pneumonitis --s/p ex lap, extensive lysis of adhesions, small bowel resection (removal of 70 cm necrotic small bowel segment), peritoneal lavage and ABThera abdominal wound VAC placement -12/23 s/p abdominal exploration, small bowel resection, peritoneal lavage, ABThera wound VAC placement -12/26 s/p ex lap, small bowel resection, peritoneal lavage, ABThera wound VAC placement -12/27 s/p ex lap, extensive lysis of adhesions, small bowel resection (removal of 70 cm necrotic small bowel segment), peritoneal lavage and ABThera abdominal wound VAC placement. -12/29 s/p ex lap, small bowel resection, small bowel anastomosis and ABThera wound VAC placement -01/01 s/p myocutaneous flap creation, abdominal wall component separation and placement of phasix mesh with surgery yesterday where his abdomen was closed and 2 LAURA drains were placed on either side of his midline between fascia and SQ tissue. -12/30 initiated on HD by nephro -01/03 RBC x2 -01/06 RBC -01/07 RBC -01/09 stool pos for guiac; CT Chest/abd/pelvis Problem List COVID-19 PUI, ruled out Small bowel obstruction with peritonitis Ventral hernia s/p repair Leukocytosis Anemia Hyponatremia Hypochloremia Acute Kidney Injury, on HD Obesity Hypertension Nicotine dependence CAD s/p stent placement Hyperlipidemia Osteoarthritis GERD medical non adherence Systems Exam NEURO- uremic; sedated; generalized weakness; post op pain; high risk delirium opens eyes; nods appropriately; following commands PERRL generalized weakness fentanyl weaned off overnight now on dex and propofol - low doses dex does make pt bradycardic RASS goal neg 4 PRN tylenol for pain NOK mother - pt's brother was updated on plan of care case management following for d/c planning CV- nap SB-SR As pt is awake more his bp has increased PRN hydral RESP- post op resp failure remains ventilated on CMV [id number] daily ABG wean as tolerated to PS trails intubated 12/20 if fails to extubate soon - likely trach ABG daily and PRN GI- sp SBO with exlap repair; protein isha malnutrition TF at 10- tolerating well TPN nutrition following LAURA x 2/abd drains with minimal outpput continue to trend output Gen surg following CT chest abd and pelvis today with PO and IV contrast-01/09 see report stooling RI daily dulclox reglan daily pepcid scheduled - JONI requiring HD; hyponatremia; hyperK; uremia haley strict I/O trending electrolytes nephrology following HD usually M/W/F HD today - sp contrast -cleaned no UF- tolerated well kidney function seems to be returning pt was net neg 1.7L over the last 24 hurs- and he made 2.8L of urine Na 128 - continue to monitor; post HD today AM labs ordered HEME- post op anemia SQH VTE RBC x 2 on 01/03; RBC x 1 on 01/06 and RBC x 1 on 01/07 -- see hgb trend; not appropriate response Hgb stable today at 8.2 Gen surg has discussed with IR- will monitor for now- if there is a dec in Hgb will consider CTA abd/pelvis and IR intervention coags normal CBC in AM ID- leukocytosis ID following no antibiotics at this time trend WBC and temp curve consider rotation of vascath if concern for infection 12/21 covid neg 12/21 Hep. 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 No acute events overnight Hospitalist Physical - Constitutional Vitals: Temp Pulse Resp BP Pulse Ox 98.3 F 57 L 17 159/74 98 01/10/21 09:10 01/10/21 11:00 01/10/21 09:30 01/10/21 11:00 01/10/21 09:30 General appearance: Present: mild distress, well-nourished, obese, other (sedated) - EENT Eyes: Present: PERRL, EOM intact ENT: hearing intact - Neck Neck: Present: supple, normal ROM - Respiratory Respiratory: bilateral: diminished - Cardiovascular Rhythm: regular Heart Sounds: Present: S1 & S2 - Extremities Extremity abnormal: edema Peripheral Pulses: within normal limits - Abdominal General gastrointestinal: soft, tender - Integumentary Integumentary: Present: clear, warm - Psychiatric Psychiatric: cooperative - Allied Health Allied health notes reviewed: nursing, PT, ST, OT, RT, social work, case management HEART Score - HEART Score EKG: Normal Age: < 45 Risk factors: No known risk factors Troponin: Troponin T < 0.010 ng/mL (0.00-0.029) 12/20/20 13:58 Troponin: < normal limit - Critical Actions Critical Actions: 0-3 pts:0.9-1.7%risk of adverse cardiac event.Candidate for discharge Results - Labs CBC & Chem 7: 01/10/21 04:01 01/10/21 04:01 Labs: Laboratory Last Values WBC 12.6 K/mm3 (4.5-11.0) H 01/10/21 04:01 RBC 2.89 M/mm3 (3.65-5.03) L 01/10/21 04:01 Hgb 8.1 gm/dl (11.8-15.2) L 01/10/21 04:01 Hct 24.9 % (35.5-45.6) L 01/10/21 04:01 MCV 86 fl (84-94) 01/10/21 04:01 MCH 28 pg (28-32) 01/10/21 04:01 MCHC 32 % (32-34) 01/10/21 04:01 RDW 16.6 % (13.2-15.2) H 01/10/21 04:01 Plt Count 257 K/mm3 (140-440) 01/10/21 04:01 Add Manual Diff Complete 01/10/21 04:01 Total Counted 100 01/10/21 04:01 Seg Neutrophils % Quality Assurance Manager 01/10/21 04:01 Seg Neuts % (Manual) 95.0 % (40.0-70.0) H 01/10/21 04:01 Band Neutrophils % 2.0 % 01/10/21 04:01 Lymphocytes % (Manual) 3.0 % (13.4-35.0) L 01/10/21 04:01 Monocytes % (Manual) 1.0 % (0.0-7.3) 01/09/21 10:10 Metamyelocytes % 1.0 % 01/09/21 10:10 Myelocytes % 1.0 % 01/09/21 10:10 Nucleated RBC % Not Reportable 01/10/21 04:01 Seg Neutrophils # Man 12.0 K/mm3 (1.8-7.7) H 01/10/21 04:01 Band Neutrophils # 0.3 K/mm3 01/10/21 04:01 Lymphocytes # (Manual) 0.4 K/mm3 (1.2-5.4) L 01/10/21 04:01 Abs React Lymphs (Man) 0.0 K/mm3 01/10/21 04:01 Monocytes # (Manual) 0.0 K/mm3 (0.0-0.8) 01/10/21 04:01 Eosinophils # (Manual) 0.0 K/mm3 (0.0-0.4) 01/10/21 04:01 Basophils # (Manual) 0.0 K/mm3 (0.0-0.1) 01/10/21 04:01 Metamyelocytes # 0.0 K/mm3 01/10/21 04:01 Myelocytes # 0.0 K/mm3 01/10/21 04:01 Promyelocytes # 0.0 K/mm3 01/10/21 04:01 Blast Cells # 0.0 K/mm3 01/10/21 04:01 WBC Morphology Not Reportable 01/10/21 04:01 Hypersegmented Neuts Not Reportable 01/10/21 04:01 Hyposegmented Neuts Not Reportable 01/10/21 04:01 Hypogranular Neuts Not Reportable 01/10/21 04:01 Smudge Cells Not Reportable 01/10/21 04:01 Toxic Granulation Not Reportable 01/10/21 04:01 Toxic Vacuolation Not Reportable 01/10/21 04:01 Dohle Bodies Not Reportable 01/10/21 04:01 Pelger-Huet Anomaly Not Reportable 01/10/21 04:01 Mirian Rods Not Reportable 01/10/21 04:01 Platelet Estimate Consistent w auto 01/10/21 04:01 Clumped Platelets Not Reportable 01/10/21 04:01 Plt Clumps, EDTA Not Reportable 01/10/21 04:01 Large Platelets Not Reportable 01/10/21 04:01 Giant Platelets Not Reportable 01/10/21 04:01 Platelet Satelliting Not Reportable 01/10/21 04:01 Plt Morphology Comment Not Reportable 01/10/21 04:01 RBC Morphology Not Reportable 01/10/21 04:01 Dimorphic RBCs Not Reportable 01/10/21 04:01 Polychromasia Not Reportable 01/10/21 04:01 Hypochromasia Few 01/10/21 04:01 Poikilocytosis Not Reportable 01/10/21 04:01 Anisocytosis Few 01/10/21 04:01 Microcytosis Few 01/10/21 04:01 Macrocytosis Not Reportable 01/10/21 04:01 Spherocytes Not Reportable 01/10/21 04:01 Pappenheimer Bodies Not Reportable 01/10/21 04:01 Sickle Cells Not Reportable 01/10/21 04:01 Target Cells Not Reportable 01/10/21 04:01 Tear Drop Cells Not Reportable 01/10/21 04:01 Ovalocytes Not Reportable 01/10/21 04:01 Helmet Cells Not Reportable 01/10/21 04:01 [place] Bodies Not Reportable 01/10/21 04:01 [place] Rings Not Reportable 01/10/21 04:01 [place] Cells Not Reportable 01/10/21 04:01 Bite Cells Not Reportable 01/10/21 04:01 Crenated Cell Not Reportable 01/10/21 04:01 Elliptocytes Not Reportable 01/10/21 04:01 Acanthocytes (Spur) Not Reportable 01/10/21 04:01 Rouleaux Not Reportable 01/10/21 04:01 Hemoglobin C Crystals Not Reportable 01/10/21 04:01 Schistocytes Not Reportable 01/10/21 04:01 Malaria parasites Not Reportable 01/10/21 04:01 Dylon Bodies Not Reportable 01/10/21 04:01 Hem Pathologist Commnt No 01/10/21 04:01 PT 15.4 Sec. (12.2-14.9) H 01/10/21 04:01 INR 1.17 (0.87-1.13) H 01/10/21 04:01 APTT 40.2 Sec. (24.2-36.6) H 01/10/21 04:01 Fibrinogen 817 mg/dl (211-480) H 01/10/21 04:01 ABG pH 7.273 (7.320-7.450) L 01/10/21 04:00 POC ABG pCO2 38.6 mmHg (32.0-48.0) 01/10/21 04:00 ABG pCO2 37.9 mm Hg 01/05/21 03:50 POC ABG pO2 97.3 mmHg (83-108) 01/10/21 04:00 ABG pO2 136.8 mm Hg (80.0-90.0) H 01/05/21 03:50 POC ABG HCO3 17.4 01/10/21 04:00 ABG HCO3 22.4 mmol/L (20.0-26.0) 01/05/21 03:50 ABG O2 Saturation 97.0 (0-100) 01/10/21 04:00 ABG O2 Content 9.8 (0.0-44) 01/05/21 03:50 POC ABG Base Excess -8.7 01/10/21 04:00 ABG Base Excess -2.3 mmol/L (-2.0-3.0) L 01/05/21 03:50 ABG Hemoglobin 8.7 (12.0-17.5) L 01/10/21 04:00 ABG Oxyhemoglobin 95.4 (94-98) 01/10/21 04:00 ABG Carboxyhemoglobin 1.5 % (0.0-5.0) 01/05/21 03:50 ABG Methemoglobin 0.3 (0.0-1.5) 01/10/21 04:00 ABG Sodium 126.2 mmol/L (136.0-145.0) L 01/10/21 04:00 ABG Potassium 4.8 mmol/L (3.40-4.50) H 01/10/21 04:00 ABG Chloride 96.0 mmol/L (98-107) L 01/10/21 04:00 ABG Glucose 160 mg/dL (65-95) H 01/10/21 04:00 Oxyhemoglobin 96.7 % (95.0-99.0) 01/05/21 03:50 Carboxyhemoglobin 1.3 (0.5-1.5) 01/10/21 04:00 FiO2 50 % 01/05/21 03:50 FiO2 % 35.0 01/10/21 04:00 Sodium 128 mmol/L (137-145) L 01/10/21 04:01 Potassium 5.0 mmol/L (3.6-5.0) D 01/10/21 04:01 Chloride 90.4 mmol/L (98-107) L 01/10/21 04:01 Carbon Dioxide 19 mmol/L (22-30) L 01/10/21 04:01 Anion Gap 24 mmol/L 01/10/21 04:01 BUN 113 mg/dL (9-20) H 01/10/21 04:01 Creatinine 4.5 mg/dL (0.8-1.3) H 01/10/21 04:01 Estimated GFR 13 ml/min 01/10/21 04:01 BUN/Creatinine Ratio 25 % 01/10/21 04:01 Glucose 162 mg/dL (75-100) H 01/10/21 04:01 POC Glucose 150 mg/dL (70-105) H 01/10/21 05:31 Lactic Acid 1.70 mmol/L (0.7-2.0) 12/20/20 16:20 Calcium 9.0 mg/dL (8.4-10.2) 01/10/21 04:01 Ionized Calcium 3.3 mg/dL (4.8-5.6) L 12/27/20 14:40 Phosphorus 5.70 mg/dL (2.5-4.5) H 01/10/21 04:01 Magnesium 2.10 mg/dL (1.7-2.3) 01/10/21 04:01 Total Bilirubin 0.50 mg/dL (0.1-1.2) 01/10/21 04:01 AST 22 units/L (5-40) 01/10/21 04:01 ALT 19 units/L (7-56) 01/10/21 04:01 Alkaline Phosphatase 117 units/L (35-129) 01/10/21 04:01 Troponin T < 0.010 ng/mL (0.00-0.029) 12/20/20 13:58 Total Protein 6.2 g/dL (6.3-8.2) L 01/10/21 04:01 Albumin 2.1 g/dL (3.9-5) L 01/10/21 04:01 Albumin/Globulin Ratio 0.5 % 01/10/21 04:01 Triglycerides 166 mg/dL (2-149) H 01/08/21 Unknown Arterial Blood Glucose 160 mg/dL (65-95) H 01/10/21 04:00 Arterial Blood Ionized Calcium 4.8 mg/dL (4.6-5.3) 01/10/21 04:00 Urine Color Yellow (Yellow) 12/23/20 12:15 Urine Turbidity Cloudy (Clear) 12/23/20 12:15 Urine pH 5.0 (5.0-7.0) 12/23/20 12:15 Ur Specific Salters 1.019 (1.003-1.030) 12/23/20 12:15 Urine Protein <15 mg/dl mg/dL (Negative) 12/23/20 12:15 Urine Glucose (UA) Neg mg/dL (Negative) 12/23/20 12:15 Urine Ketones Neg mg/dL (Negative) 12/23/20 12:15 Urine Blood Sm (Negative) 12/23/20 12:15 Urine Nitrite Neg (Negative) 12/23/20 12:15 Urine Bilirubin Neg (Negative) 12/23/20 12:15 Urine Urobilinogen < 2.0 mg/dL (<2.0) 12/23/20 12:15 Ur Leukocyte Esterase Neg (Negative) 12/23/20 12:15 Urine WBC (Auto) 5.0 /HPF (0.0-6.0) 12/23/20 12:15 Urine RBC (Auto) 2.0 /HPF (0.0-6.0) 12/23/20 12:15 U Epithel Cells (Auto) < 1.0 /HPF (0-13.0) 12/20/20 Unknown Urine Bacteria (Auto) 1+ /HPF (Negative) 12/23/20 12:15 Triple Phos Crystals 2+ 12/23/20 12:15 Hyaline Casts 19 /LPF 12/20/20 Unknown Urine Mucus Few /HPF 12/23/20 12:15 Urine Eosinophils None seen (None Seen) 12/23/20 12:15 Urine Creatinine 78.1 mg/dL (0.1-20.0) H 12/23/20 12:15 Urine Sodium 13 mmol/L 12/23/20 12:15 Fraction Sodium Excret 0.2 12/23/20 12:15 Random Vancomycin 7.9 ug/mL (0-40.0) 12/23/20 12:15 Coronavirus (PCR) Negative (Negative) 12/21/20 Unknown Hepatitis A IgM Ab Non-reactive (NonReactive) 12/30/20 14:40 Hep Bs Antigen Non-reactive (Negative) 12/30/20 14:40 Hep B Core IgM Ab Non-reactive (NonReactive) 12/30/20 14:40 Hepatitis C Antibody Non-reactive (NonReactive) 12/30/20 14:40 Blood Type A NEGATIVE 01/06/21 11:00 Antibody Screen Negative 01/06/21 11:00 Crossmatch See Detail 01/06/21 11:00 Microbiology: Microbiology 01/09/21 04:10 Stool Stool Occult Blood (LORRI) - Final - Imaging and Cardiology CT scan - abdomen: report reviewed CT scan - chest: report reviewed Haley/IV: Voiding Method Indwelling Catheter Active Medications - Current Medications Current Medications: Generic Name Dose Route Start Last Admin Trade Name Freq PRN Reason Stop Dose Admin Acetaminophen 650 mg 12/21/20 11:51 12/25/20 20:35 Acetaminophen 650 Mg Rect Supp RI 650 mg Q4H PRN Administration TEMP >/=100.4 Lipase/Protease/Amylase 1 each 01/07/21 08:44 Lipase 10,500/Protease 25,000/Amylase 43,750 (Units) Dr Cap FEEDTUBE PRN PRN For Clogged Feeding Tube Bisacodyl 10 mg 12/30/20 11:00 01/09/21 12:20 Bisacodyl 10 Mg Rect Supp RI Not Given QDAY ASCENCION Dextrose 50 ml 12/24/20 10:49 Dextrose 50% In Water (25gm) 50 Ml Syringe IV Q30MIN PRN Hypoglycemia Protocol Famotidine 20 mg 12/26/20 10:00 01/09/21 13:58 Famotidine 20 Mg/2 Ml Inj IV 20 mg DAILY ASCENCION Administration Heparin Sodium (Porcine) 5,000 unit 01/06/21 14:00 01/10/21 05:49 Heparin 5,000 Unit/1 Ml Vial SUB-Q 5,000 unit Q8HR ASCENCION Administration Hydralazine HCl 10 mg 01/09/21 16:13 01/09/21 16:34 Hydralazine 20 Mg/1 Ml Inj IV 10 mg Q4H PRN Administration Hypertension Hydromorphone HCl 1 mg 01/06/21 15:58 01/10/21 09:24 Hydromorphone 1 Mg/1 Ml Inj IV 1 mg Q4H PRN Administration Pain , Severe (7-10) Hydrophilic Ointment 1 applic 12/20/20 21:58 Lip Therapy Vaseline TP Q2HR PRN Dry Lips Propofol 1,000 mg in 100 mls @ 3.606 mls/hr 12/20/20 22:00 01/10/21 11:03 Diprivan 10 Mg/Ml IV 20 mcg/kg/min TITR ASCENCION 14.424 mls/hr Titration Protocol 5 MCG/KG/MIN NORepinephrine/NS 8 MG-250 ML 8 mg in 250 mls @ 3.75 mls/hr 12/21/20 09:00 01/02/21 06:15 Norepinephrine/Ns 8 Mg-250 Ml (Double Conc) IV 0 mcg/min TITRATE ASCENCION 0 mls/hr Titration Protocol 2 MCG/MIN Dexmedetomidine HCl 400 mcg/ 104 mls @ 7.322 mls/hr 01/04/21 11:00 01/10/21 11:03 Sodium Chloride IV 0.6 mcg/kg/hr TITRATE ASCENCION 21.965 mls/hr Titration Protocol 0.2 MCG/KG/HR Amino Acids/Electrolytes/Dextrose 1,999.92 mls @ 83.33 mls/hr 01/09/21 20:00 01/09/21 20:36 Tpn Adult IV 01/10/21 19:59 83.33 mls/hr DAILY@2000 [facility] Administration Protocol Sodium Chloride 100 mls @ 999 mls/hr 01/10/21 09:08 Nacl 0.9% IV MARILU PRN Hypotension Insulin Human Regular 0 units 12/28/20 00:00 01/10/21 06:05 Insulin Regular, Human 100 Units/1 Ml SUB-Q Not Given Q6H [facility] Protocol Metoclopramide HCl 5 mg 01/09/21 18:00 01/10/21 05:48 Metoclopramide 10 Mg/2 Ml Inj IV 5 mg Q6HR ASCENCION Administration Multi-Ingred Cream/Lotion/Oil/Oint 1 applic 12/20/20 21:58 01/03/21 01:13 Mineral Oil/Petrolatum, White Ophth Oint 3.5 Gm OU 1 applic Q4HR PRN Administration Dry Eye(s) Simple Syrup 15 ml 01/07/21 08:44 Simple Syrup 15 Ml FEEDTUBE PRN PRN Hypoglycemia Simple Syrup 30 ml 01/07/21 08:44 Simple Syrup 15 Ml FEEDTUBE PRN PRN Hypoglycemia Sodium Bicarbonate 325 mg 01/07/21 08:44 Sodium Bicarbonate 325 Mg Tab FEEDTUBE PRN PRN For Clogged Feeding Tube Sodium Chloride 10 ml 12/20/20 22:00 01/09/21 21:08 Sodium Chloride 0.9% 10 Ml Flush Syringe IV 10 ml BID ASCENCION Administration Sodium Chloride 10 ml 12/20/20 16:42 Sodium Chloride 0.9% 10 Ml Flush Syringe IV PRN PRN LINE FLUSH Nutrition/Malnutrition Assess - Dietary Evaluation Nutrition/Malnutrition Findings: Nutrition Notes Start: 12/21/20 09:06 Freq: Status: Active Protocol: Document 01/10/21 07:59 (Rec: 01/10/21 08:05 [email or web address]) Nutrition Notes Initial or Follow up Reassessment Current Diagnosis Acute Kidney Injury,Coronary Artery Disease,Sepsis, Hypertension,Small Bowel Obstruction,Hyperlipidemia Other Pertinent Diagnosis gangrenous small bowel, s/p small bowel ressection, peritonitis Current Diet TPN at 83.33ml/hr + Nepro 10ml /hr Labs/Tests Na 128 Cl 90.4 CO2 19 BUN 113 Cr 4.5 Phos 507 Pertinent Medications Propofol at 14.424ml/hr ( provides 381 kcal) Reglan Height 6 ft Weight 128.1 kg [place] Body Weight (kg) 80.90 BMI 38.2 Weight Status Obese Subjective/Other Information Day 18 CPN. Pt remains on vent with Propofol running. At 0800, TF residual at 160ml and resumed trickle feed at 10 ml /hr. Percent of energy/protein needs met: 100% energy 79% pro (CPN only) Burn Absent Trauma Absent Current % PO Negligible Minimum of two criteria No #2 Nutrition Diagnosis Increased nutrient needs ( specify in comment below) Diagnosis Progress(for reassessment Continues documentation) #1 Nutrition Diagnosis Inadequate oral intake Diagnosis Progress(for reassessment Continues documentation) Is patient on ventilator? Yes Is Patient Ambulatory and/or Out of Bed No REE-([place]-St. Jeor-confined to bed) 2564.928 Kcal/Kg value to use for calculation 14 Approximate Energy Requirements Using 1793 kcal/Kg Calculation Used for Recommendations Kcal/kg Additional Notes Pro needs >1.2g/kg adjBW: > 127g/day Fluid needs per MD. Nutrition Intervention Nutrition Support: Continue CPN at 83.33ml/hr: MVI, MTE, Phos 0 mEq, 0mEq Ca . Osmolality: 1655. Continue Nepro at 10ml/hr as tolerated. Kcal 1,760 Protein (gm) 100 Fat (gm) 0 Fluid (mL) 2,000 Fiber (gm) 0 Goal #1 TF tolerance Goal #2 TF plus TPN to meet nutrient needs as best possible Follow-Up By: 01/11/21 Additional Comments Labs in AM: Bmp, Mg, Phos FU for TF tolerance - Malnutrition Assessment Minimum of two criteria: Yes - Attestation Statement I have reviewed and agreed w/ Malnutrition eval & tx plan: Yes <VINICIUS EWING - Last Filed: 01/11/21 07:47> Assessment and Plan Assessment and plan: I saw and evaluated the patient. I agree with the findings and the plan of care as documented in the Nurse Practitioner's~note, with the following corrections and additions. The high probability of a clinically significant, sudden or life threatening deterioration of the [multiple] system(s) required my full and direct attention, intervention and personal management. The aggregate critical care time was [60] minutes. This time is in addition to time spent performing reported procedures but includes the following: [x] Data Review and interpretation [x] Patient assessment and monitoring of vital signs [x] Documentation [x] Medication orders and management Hospitalist Physical - Constitutional Vitals: Temp Pulse Resp BP Pulse Ox 97.8 F 67 24 116/56 100 01/11/21 07:10 01/11/21 07:28 01/11/21 06:00 01/11/21 07:28 01/11/21 07:28 HEART Score - HEART Score Troponin: Troponin T < 0.010 ng/mL (0.00-0.029) 12/20/20 13:58 Results - Labs CBC & Chem 7: 01/10/21 04:01 01/11/21 04:45 Labs: Laboratory Last Values WBC 12.6 K/mm3 (4.5-11.0) H 01/10/21 04:01 RBC 2.89 M/mm3 (3.65-5.03) L 01/10/21 04:01 Hgb 8.1 gm/dl (11.8-15.2) L 01/10/21 04:01 Hct 24.9 % (35.5-45.6) L 01/10/21 04:01 MCV 86 fl (84-94) 01/10/21 04:01 MCH 28 pg (28-32) 01/10/21 04:01 MCHC 32 % (32-34) 01/10/21 04:01 RDW 16.6 % (13.2-15.2) H 01/10/21 04:01 Plt Count 257 K/mm3 (140-440) 01/10/21 04:01 Add Manual Diff Complete 01/10/21 04:01 Total Counted 100 01/10/21 04:01 Seg Neutrophils % Quality Assurance Manager 01/10/21 04:01 Seg Neuts % (Manual) 95.0 % (40.0-70.0) H 01/10/21 04:01 Band Neutrophils % 2.0 % 01/10/21 04:01 Lymphocytes % (Manual) 3.0 % (13.4-35.0) L 01/10/21 04:01 Monocytes % (Manual) 1.0 % (0.0-7.3) 01/09/21 10:10 Metamyelocytes % 1.0 % 01/09/21 10:10 Myelocytes % 1.0 % 01/09/21 10:10 Nucleated RBC % Not Reportable 01/10/21 04:01 Seg Neutrophils # Man 12.0 K/mm3 (1.8-7.7) H 01/10/21 04:01 Band Neutrophils # 0.3 K/mm3 01/10/21 04:01 Lymphocytes # (Manual) 0.4 K/mm3 (1.2-5.4) L 01/10/21 04:01 Abs React Lymphs (Man) 0.0 K/mm3 01/10/21 04:01 Monocytes # (Manual) 0.0 K/mm3 (0.0-0.8) 01/10/21 04:01 Eosinophils # (Manual) 0.0 K/mm3 (0.0-0.4) 01/10/21 04:01 Basophils # (Manual) 0.0 K/mm3 (0.0-0.1) 01/10/21 04:01 Metamyelocytes # 0.0 K/mm3 01/10/21 04:01 Myelocytes # 0.0 K/mm3 01/10/21 04:01 Promyelocytes # 0.0 K/mm3 01/10/21 04:01 Blast Cells # 0.0 K/mm3 01/10/21 04:01 WBC Morphology Not Reportable 01/10/21 04:01 Hypersegmented Neuts Not Reportable 01/10/21 04:01 Hyposegmented Neuts Not Reportable 01/10/21 04:01 Hypogranular Neuts Not Reportable 01/10/21 04:01 Smudge Cells Not Reportable 01/10/21 04:01 Toxic Granulation Not Reportable 01/10/21 04:01 Toxic Vacuolation Not Reportable 01/10/21 04:01 Dohle Bodies Not Reportable 01/10/21 04:01 Pelger-Huet Anomaly Not Reportable 01/10/21 04:01 Mirian Rods Not Reportable 01/10/21 04:01 Platelet Estimate Consistent w auto 01/10/21 04:01 Clumped Platelets Not Reportable 01/10/21 04:01 Plt Clumps, EDTA Not Reportable 01/10/21 04:01 Large Platelets Not Reportable 01/10/21 04:01 Giant Platelets Not Reportable 01/10/21 04:01 Platelet Satelliting Not Reportable 01/10/21 04:01 Plt Morphology Comment Not Reportable 01/10/21 04:01 RBC Morphology Not Reportable 01/10/21 04:01 Dimorphic RBCs Not Reportable 01/10/21 04:01 Polychromasia Not Reportable 01/10/21 04:01 Hypochromasia Few 01/10/21 04:01 Poikilocytosis Not Reportable 01/10/21 04:01 Anisocytosis Few 01/10/21 04:01 Microcytosis Few 01/10/21 04:01 Macrocytosis Not Reportable 01/10/21 04:01 Spherocytes Not Reportable 01/10/21 04:01 Pappenheimer Bodies Not Reportable 01/10/21 04:01 Sickle Cells Not Reportable 01/10/21 04:01 Target Cells Not Reportable 01/10/21 04:01 Tear Drop Cells Not Reportable 01/10/21 04:01 Ovalocytes Not Reportable 01/10/21 04:01 Helmet Cells Not Reportable 01/10/21 04:01 [place] Bodies Not Reportable 01/10/21 04:01 [place] Rings Not Reportable 01/10/21 04:01 [place] Cells Not Reportable 01/10/21 04:01 Bite Cells Not Reportable 01/10/21 04:01 Crenated Cell Not Reportable 01/10/21 04:01 Elliptocytes Not Reportable 01/10/21 04:01 Acanthocytes (Spur) Not Reportable 01/10/21 04:01 Rouleaux Not Reportable 01/10/21 04:01 Hemoglobin C Crystals Not Reportable 01/10/21 04:01 Schistocytes Not Reportable 01/10/21 04:01 [place] parasites Not Reportable 01/10/21 04:01 [place] Bodies Not Reportable 01/10/21 04:01 Hem Pathologist Commnt No 01/10/21 04:01 PT 15.4 Sec. (12.2-14.9) H 01/10/21 04:01 INR 1.17 (0.87-1.13) H 01/10/21 04:01 APTT 40.2 Sec. (24.2-36.6) H 01/10/21 04:01 Fibrinogen 817 mg/dl (211-480) H 01/10/21 04:01 ABG pH 7.311 (7.320-7.450) L 01/11/21 04:00 POC ABG pCO2 49.2 mmHg (32.0-48.0) H 01/11/21 04:00 ABG pCO2 37.9 mm Hg 01/05/21 03:50 POC ABG pO2 90.2 mmHg (83-108) 01/11/21 04:00 ABG pO2 136.8 mm Hg (80.0-90.0) H 01/05/21 03:50 POC ABG HCO3 24.3 01/11/21 04:00 ABG HCO3 22.4 mmol/L (20.0-26.0) 01/05/21 03:50 ABG O2 Saturation 96.2 (0-100) 01/11/21 04:00 ABG O2 Content 9.8 (0.0-44) 01/05/21 03:50 POC ABG Base Excess -2.1 01/11/21 04:00 ABG Base Excess -2.3 mmol/L (-2.0-3.0) L 01/05/21 03:50 ABG Hemoglobin 9.4 (12.0-17.5) L 01/11/21 04:00 ABG Oxyhemoglobin 95.2 (94-98) 01/11/21 04:00 ABG Carboxyhemoglobin 1.5 % (0.0-5.0) 01/05/21 03:50 ABG Methemoglobin 0.3 (0.0-1.5) 01/11/21 04:00 ABG Sodium 130.3 mmol/L (136.0-145.0) L 01/11/21 04:00 ABG Potassium 3.7 mmol/L (3.40-4.50) 01/11/21 04:00 ABG Chloride 96.0 mmol/L (98-107) L 01/11/21 04:00 ABG Glucose 104 mg/dL (65-95) H 01/11/21 04:00 Oxyhemoglobin 96.7 % (95.0-99.0) 01/05/21 03:50 Carboxyhemoglobin 0.7 (0.5-1.5) 01/11/21 04:00 FiO2 50 % 01/05/21 03:50 FiO2 % 35.0 01/11/21 04:00 Sodium 134 mmol/L (137-145) L 01/11/21 04:45 Potassium 3.5 mmol/L (3.6-5.0) L D 01/11/21 04:45 Chloride 95.5 mmol/L (98-107) L 01/11/21 04:45 Carbon Dioxide 23 mmol/L (22-30) 01/11/21 04:45 Anion Gap 19 mmol/L 01/11/21 04:45 BUN 88 mg/dL (9-20) H 01/11/21 04:45 Creatinine 3.5 mg/dL (0.8-1.3) H 01/11/21 04:45 Estimated GFR 18 ml/min 01/11/21 04:45 BUN/Creatinine Ratio 25 % 01/11/21 04:45 Glucose 103 mg/dL (75-100) H 01/11/21 04:45 POC Glucose 104 mg/dL (70-105) 01/10/21 23:15 Lactic Acid 1.70 mmol/L (0.7-2.0) 12/20/20 16:20 Calcium 8.8 mg/dL (8.4-10.2) 01/11/21 04:45 Ionized Calcium 3.3 mg/dL (4.8-5.6) L 12/27/20 14:40 Phosphorus 4.20 mg/dL (2.5-4.5) D 01/11/21 04:45 Magnesium 1.90 mg/dL (1.7-2.3) 01/11/21 04:45 Total Bilirubin 0.50 mg/dL (0.1-1.2) 01/10/21 04:01 AST 22 units/L (5-40) 01/10/21 04:01 ALT 19 units/L (7-56) 01/10/21 04:01 Alkaline Phosphatase 117 units/L (35-129) 01/10/21 04:01 Troponin T < 0.010 ng/mL (0.00-0.029) 12/20/20 13:58 Total Protein 6.2 g/dL (6.3-8.2) L 01/10/21 04:01 Albumin 2.1 g/dL (3.9-5) L 01/10/21 04:01 Albumin/Globulin Ratio 0.5 % 01/10/21 04:01 Triglycerides 166 mg/dL (2-149) H 01/08/21 Unknown Arterial Blood Glucose 104 mg/dL (65-95) H 01/11/21 04:00 Arterial Blood Ionized Calcium 4.9 mg/dL (4.6-5.3) 01/11/21 04:00 Urine Color Yellow (Yellow) 12/23/20 12:15 Urine Turbidity Cloudy (Clear) 12/23/20 12:15 Urine pH 5.0 (5.0-7.0) 12/23/20 12:15 Ur Specific Salters 1.019 (1.003-1.030) 12/23/20 12:15 Urine Protein <15 mg/dl mg/dL (Negative) 12/23/20 12:15 Urine Glucose (UA) Neg mg/dL (Negative) 12/23/20 12:15 Urine Ketones Neg mg/dL (Negative) 12/23/20 12:15 Urine Blood Sm (Negative) 12/23/20 12:15 Urine Nitrite Neg (Negative) 12/23/20 12:15 Urine Bilirubin Neg (Negative) 12/23/20 12:15 Urine Urobilinogen < 2.0 mg/dL (<2.0) 12/23/20 12:15 Ur Leukocyte Esterase Neg (Negative) 12/23/20 12:15 Urine WBC (Auto) 5.0 /HPF (0.0-6.0) 12/23/20 12:15 Urine RBC (Auto) 2.0 /HPF (0.0-6.0) 12/23/20 12:15 U Epithel Cells (Auto) < 1.0 /HPF (0-13.0) 12/20/20 Unknown Urine Bacteria (Auto) 1+ /HPF (Negative) 12/23/20 12:15 Triple Phos Crystals 2+ 12/23/20 12:15 Hyaline Casts 19 /LPF 12/20/20 Unknown Urine Mucus Few /HPF 12/23/20 12:15 Urine Eosinophils None seen (None Seen) 12/23/20 12:15 Urine Creatinine 78.1 mg/dL (0.1-20.0) H 12/23/20 12:15 Urine Sodium 13 mmol/L 12/23/20 12:15 Fraction Sodium Excret 0.2 12/23/20 12:15 Random Vancomycin 7.9 ug/mL (0-40.0) 12/23/20 12:15 Coronavirus (PCR) Negative (Negative) 12/21/20 Unknown Hepatitis A IgM Ab Non-reactive (NonReactive) 12/30/20 14:40 Hep Bs Antigen Non-reactive (Negative) 12/30/20 14:40 Hep B Core IgM Ab Non-reactive (NonReactive) 12/30/20 14:40 Hepatitis C Antibody Non-reactive (NonReactive) 12/30/20 14:40 Blood Type A NEGATIVE 01/06/21 11:00 Antibody Screen Negative 01/06/21 11:00 Crossmatch See Detail 01/06/21 11:00 Haley/IV: Voiding Method Indwelling Catheter Active Medications - Current Medications Current Medications: Generic Name Dose Route Start Last Admin Trade Name Freq PRN Reason Stop Dose Admin Acetaminophen 650 mg 12/21/20 11:51 12/25/20 20:35 Acetaminophen 650 Mg Rect Supp RI 650 mg Q4H PRN Administration TEMP >/=100.4 Lipase/Protease/Amylase 1 each 01/07/21 08:44 Lipase 10,500/Protease 25,000/Amylase 43,750 (Units) Dr Maharaj FEEDTUBE PRN PRN For Clogged Feeding Tube Bisacodyl 10 mg 12/30/20 11:00 01/10/21 11:53 Bisacodyl 10 Mg Rect Supp RI 10 mg QDAY ASCENCION Administration Dextrose 50 ml 12/24/20 10:49 Dextrose 50% In Water (25gm) 50 Ml Syringe IV Q30MIN PRN Hypoglycemia Protocol Famotidine 20 mg 12/26/20 10:00 01/10/21 11:53 Famotidine 20 Mg/2 Ml Inj IV 20 mg DAILY ASCENCION Administration Heparin Sodium (Porcine) 5,000 unit 01/06/21 14:00 01/11/21 05:45 Heparin 5,000 Unit/1 Ml Vial SUB-Q 5,000 unit Q8HR ASCENCION Administration Hydralazine HCl 10 mg 01/09/21 16:13 01/09/21 16:34 Hydralazine 20 Mg/1 Ml Inj IV 10 mg Q4H PRN Administration Hypertension Hydromorphone HCl 1 mg 01/06/21 15:58 01/10/21 17:15 Hydromorphone 1 Mg/1 Ml Inj IV 1 mg Q4H PRN Administration Pain , Severe (7-10) Hydrophilic Ointment 1 applic 12/20/20 21:58 Lip Therapy Vaseline TP Q2HR PRN Dry Lips Propofol 1,000 mg in 100 mls @ 3.606 mls/hr 12/20/20 22:00 01/11/21 05:54 Diprivan 10 Mg/Ml IV 30 mcg/kg/min TITR ASCENCION 21.636 mls/hr Administration Protocol 5 MCG/KG/MIN NORepinephrine/NS 8 MG-250 ML 8 mg in 250 mls @ 3.75 mls/hr 12/21/20 09:00 01/02/21 06:15 Norepinephrine/Ns 8 Mg-250 Ml (Double Conc) IV 0 mcg/min TITRATE ASCENCION 0 mls/hr Titration Protocol 2 MCG/MIN Dexmedetomidine HCl 400 mcg/ 104 mls @ 7.322 mls/hr 01/04/21 11:00 01/11/21 03:08 Sodium Chloride IV 0.7 mcg/kg/hr TITRATE ASCENCION 25.626 mls/hr Administration Protocol 0.2 MCG/KG/HR Sodium Chloride 100 mls @ 999 mls/hr 01/10/21 09:08 Nacl 0.9% IV MARILU PRN Hypotension Amino Acids/Electrolytes/Dextrose 1,999.92 mls @ 83.33 mls/hr 01/10/21 20:00 01/10/21 21:03 Tpn Adult IV 01/11/21 19:59 83.33 mls/hr DAILY@1999 [facility] Administration Protocol Insulin Human Regular 0 units 12/28/20 00:00 01/11/21 06:41 Insulin Regular, Human 100 Units/1 Ml SUB-Q Not Given Q6H [facility] Protocol Metoclopramide HCl 5 mg 01/09/21 18:00 01/11/21 05:45 Metoclopramide 10 Mg/2 Ml Inj IV 5 mg Q6HR ASCENCION Administration Multi-Ingred Cream/Lotion/Oil/Oint 1 applic 12/20/20 21:58 01/03/21 01:13 Mineral Oil/Petrolatum, White Ophth Oint 3.5 Gm OU 1 applic Q4HR PRN Administration Dry Eye(s) Simple Syrup 15 ml 01/07/21 08:44 Simple Syrup 15 Ml FEEDTUBE PRN PRN Hypoglycemia Simple Syrup 30 ml 01/07/21 08:44 Simple Syrup 15 Ml FEEDTUBE PRN PRN Hypoglycemia Sodium Bicarbonate 325 mg 01/07/21 08:44 Sodium Bicarbonate 325 Mg Tab FEEDTUBE PRN PRN For Clogged Feeding Tube Sodium Chloride 10 ml 12/20/20 22:00 01/10/21 21:06 Sodium Chloride 0.9% 10 Ml Flush Syringe IV 10 ml BID ASCENCION Administration Sodium Chloride 10 ml 12/20/20 16:42 Sodium Chloride 0.9% 10 Ml Flush Syringe IV PRN PRN LINE FLUSH Nutrition/Malnutrition Assess - Dietary Evaluation Nutrition/Malnutrition Findings: Nutrition Notes Start: 12/21/20 09:06 Freq: Status: Active Protocol: Document 01/10/21 07:59 PIETRO (Rec: 01/10/21 08:05 PIETRO [id number]) Nutrition Notes Initial or Follow up Reassessment Current Diagnosis Acute Kidney Injury,Coronary Artery Disease,Sepsis, Hypertension,Small Bowel Obstruction,Hyperlipidemia Other Pertinent Diagnosis gangrenous small bowel, s/p small bowel ressection, peritonitis Current Diet TPN at 83.33ml/hr + Nepro 10ml /hr Labs/Tests Na 128 Cl 90.4 CO2 19 BUN 113 Cr 4.5 Phos 507 Pertinent Medications Propofol at 14.424ml/hr ( provides 381 kcal) Reglan Height 6 ft Weight 128.1 kg [place] Body Weight (kg) 80.90 BMI 38.2 Weight Status Obese Subjective/Other Information Day 18 CPN. Pt remains on vent with Propofol running. At 0800, TF residual at 160ml and resumed trickle feed at 10 ml /hr. RN states pt is tolerating TF. Percent of energy/protein needs met: 100% energy 79% pro (CPN only) Burn Absent Trauma Absent Current % PO Negligible Minimum of two criteria No #2 Nutrition Diagnosis Increased nutrient needs ( specify in comment below) Diagnosis Progress(for reassessment Continues documentation) #1 Nutrition Diagnosis Inadequate oral intake Diagnosis Progress(for reassessment Continues documentation) Is patient on ventilator? Yes Is Patient Ambulatory and/or Out of Bed No REE-([facility]-confined to bed) 2564.928 Kcal/Kg value to use for calculation 14 Approximate Energy Requirements Using 1793 kcal/Kg Calculation Used for Recommendations Kcal/kg Additional Notes Pro needs >1.2g/kg adjBW: > 127g/day Fluid needs per MD. Nutrition Intervention Nutrition Support: Continue CPN at 83.33ml/hr: MVI, MTE, Phos 0 mEq, 0mEq Ca . Osmolality: 1655. Continue Nepro at 10ml/hr as tolerated. Kcal 1,760 Protein (gm) 100 Fat (gm) 0 Fluid (mL) 2,000 Fiber (gm) 0 Goal #1 TF tolerance Goal #2 TF plus TPN to meet nutrient needs as best possible Follow-Up By: 01/11/21 Additional Comments Labs in AM: Bmp, Mg, Phos FU for TF tolerance
[2021-01-10] MEDS: FAMOTIDINE 20 MG/2 ML INJ IV SCH (11:53)
--- NOTE | 2021-01-10 12:42 | Progress Note ---
Assessment and Plan Cultures: 12/20/2020 blood culture: No growth 12/20/2020 urine culture: Usual skin giorgio 12/20/2020 tracheal aspirate culture: Mucor A/P: 60-year-old male with obesity, hypertension, tobacco abuse, coronary artery d isease, admitted to the hospital on 12/20/2020 with: #Septic shock: Resolved. No fever. Secondary to intra-abdominal source, peritonitis. Patient with necrotic bowel secondary to incarcerated ventral hernia. Status post exploratory laparotomy, extensive adhesiolysis, small bowel resection and peritoneal lavage along with ABThera VAC placement on 12/20/2020, replacement 12/29/2020. Off pressors. Last surgery abdomen closure with mesh 01/02/2021. #JONI: Renally dose antibiotics. On hemodialysis. #Morbid obesity #Mucor in tracheal aspirate is a colonizer of the tube. Minimal immunosuppression with diabetes. Recs: -continue off abx. WBC downtrending -consider moving femoral trialysis cath to an alternative site to reduce risk of infection Lissette Rizzo MD, FACP [facility] ([facility] O: [phone] F: [phone] Subjective Date of service: 01/10/21 Principal diagnosis: SBO and necrosis of large part of small intestine Interval history: Afebrile. Remains on the vent. Remains off pressors. Objective - Exam Narrative Exam: Physical Exam: Constitutional: sedated, intubated, on the vent Head, Ears, Nose: Normocephalic, atraumatic. External ears, nose normal Eyes: Conjunctivae/corneas clear. No icterus. No ptosis. Neck: intubated Oral: intubated Cardiovascular: S1, S2 + Respiratory: AE fair bilaterally and equal GI: midline dressing + bowel sounds + Musculoskeletal: scrotal edema Skin: No rash or abscess Hem/Lymphatic: No palpable cervical or supraclavicular nodes. No lymphangitis Psych: no agitation Neurological: sedated, intubated, on the vent, exam limited - Constitutional Vitals: Vital Signs Temp Pulse Resp BP Pulse Ox 97.4 F L 76 19 142/76 97 01/10/21 12:20 01/10/21 12:30 01/10/21 12:30 01/10/21 12:30 01/10/21 12:30 Temperature -Last 24 Hours Temperature 97.4 F Temperature 98.3 F Temperature 98.3 F Temperature 96.8 F Temperature 98.1 F Temperature 97.7 F Temperature 97.9 F Temperature 97.6 F Temperature 97.9 F Temperature 97.8 F - Labs CBC & Chem 7: 01/10/21 04:01 01/10/21 04:01 Labs: Abnormal lab results 01/09/21 01/09/21 01/10/21 Range/Units 10:10 23:51 04:00 WBC 14.1 H (4.5-11.0) K/mm3 RBC 2.50 L (3.65-5.03) M/mm3 Hgb 7.2 L (11.8-15.2) gm/dl Hct 21.6 L (35.5-45.6) % RDW 16.5 H (13.2-15.2) % Seg Neuts % (Manual) 92.0 H (40.0-70.0) % Lymphocytes % (Manual) 2.0 L (13.4-35.0) % Seg Neutrophils # Man 13.0 H (1.8-7.7) K/mm3 Lymphocytes # (Manual) 0.3 L (1.2-5.4) K/mm3 PT (12.2-14.9) Sec. INR (0.87-1.13) APTT (24.2-36.6) Sec. Fibrinogen (211-480) mg/dl ABG pH 7.273 L (7.320-7.450) ABG Hemoglobin 8.7 L (12.0-17.5) ABG Sodium 126.2 L (136.0-145.0) mmol/L ABG Potassium 4.8 H (3.40-4.50) mmol/L ABG Chloride 96.0 L (98-107) mmol/L ABG Glucose 160 H (65-95) mg/dL Sodium (137-145) mmol/L Chloride (98-107) mmol/L Carbon Dioxide (22-30) mmol/L BUN (9-20) mg/dL Creatinine (0.8-1.3) mg/dL Glucose (75-100) mg/dL POC Glucose 154 H (70-105) mg/dL Phosphorus (2.5-4.5) mg/dL Total Protein (6.3-8.2) g/dL Albumin (3.9-5) g/dL Arterial Blood Glucose 160 H (65-95) mg/dL 01/10/21 01/10/21 01/10/21 Range/Units 04:01 04:01 04:01 WBC 12.6 H (4.5-11.0) K/mm3 RBC 2.89 L (3.65-5.03) M/mm3 Hgb 8.1 L (11.8-15.2) gm/dl Hct 24.9 L (35.5-45.6) % RDW 16.6 H (13.2-15.2) % Seg Neuts % (Manual) 95.0 H (40.0-70.0) % Lymphocytes % (Manual) 3.0 L (13.4-35.0) % Seg Neutrophils # Man 12.0 H (1.8-7.7) K/mm3 Lymphocytes # (Manual) 0.4 L (1.2-5.4) K/mm3 PT 15.4 H (12.2-14.9) Sec. INR 1.17 H (0.87-1.13) APTT 40.2 H (24.2-36.6) Sec. Fibrinogen 817 H (211-480) mg/dl ABG pH (7.320-7.450) ABG Hemoglobin (12.0-17.5) ABG Sodium (136.0-145.0) mmol/L ABG Potassium (3.40-4.50) mmol/L ABG Chloride (98-107) mmol/L ABG Glucose (65-95) mg/dL Sodium 128 L (137-145) mmol/L Chloride 90.4 L (98-107) mmol/L Carbon Dioxide 19 L (22-30) mmol/L BUN 113 H (9-20) mg/dL Creatinine 4.5 H (0.8-1.3) mg/dL Glucose 162 H (75-100) mg/dL POC Glucose (70-105) mg/dL Phosphorus 5.70 H (2.5-4.5) mg/dL Total Protein 6.2 L (6.3-8.2) g/dL Albumin 2.1 L (3.9-5) g/dL Arterial Blood Glucose (65-95) mg/dL 01/10/21 Range/Units 05:31 WBC (4.5-11.0) K/mm3 RBC (3.65-5.03) M/mm3 Hgb (11.8-15.2) gm/dl Hct (35.5-45.6) % RDW (13.2-15.2) % Seg Neuts % (Manual) (40.0-70.0) % Lymphocytes % (Manual) (13.4-35.0) % Seg Neutrophils # Man (1.8-7.7) K/mm3 Lymphocytes # (Manual) (1.2-5.4) K/mm3 PT (12.2-14.9) Sec. INR (0.87-1.13) APTT (24.2-36.6) Sec. Fibrinogen (211-480) mg/dl ABG pH (7.320-7.450) ABG Hemoglobin (12.0-17.5) ABG Sodium (136.0-145.0) mmol/L ABG Potassium (3.40-4.50) mmol/L ABG Chloride (98-107) mmol/L ABG Glucose (65-95) mg/dL Sodium (137-145) mmol/L Chloride (98-107) mmol/L Carbon Dioxide (22-30) mmol/L BUN (9-20) mg/dL Creatinine (0.8-1.3) mg/dL Glucose (75-100) mg/dL POC Glucose 150 H (70-105) mg/dL Phosphorus (2.5-4.5) mg/dL Total Protein (6.3-8.2) g/dL Albumin (3.9-5) g/dL Arterial Blood Glucose (65-95) mg/dL
--- NOTE | 2021-01-10 12:43 | Event Note ---
Date: 01/10/21 60-year-old male with multiple medical issues including CT with abnormal finding of fluid collection adjacent to the recently placed mesh. Discussed situation with Dr. Tena. Attenuation of fluid associated with mesh is not to that of blood. Could be other fluid, possibly reactive fluid. There is some blood attenuation in the subcutaneous tissues, probably secondary to multiple operative procedures. Dr. Tena let us know over the next few days if she wishes this to be sampled.
--- NOTE | 2021-01-10 13:02 | Progress Note ---
Assessment and Plan POD#22 s/p ex lap and small bowel resection for necrotic bowel secondary to incarcerated ventral hernia left with open abdomen. POD#19 s/p abdominal exploration with segmental small bowel resection. abthera placement POD#16 s/p abdominal exploration, small bowel resection for ischemia, abthera placement POD#13 s/p abdominal exploration with small bowel anastamosis and abthera vac placement POD#9 s/p abdomen closure with mesh Afebrile and stable off pressors. 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 No clinical signs of identifiable active bleeding. Spoke with interventional radiology who reviewed CAT scan who feels that the fluid collection is likely reactive and likely will absorb on its own. As long as patient remains stable, afebrile we will hold off on sampling or draining collection. If patient shows decrease in blood count again that is significant, advised to order CT angio. Continue supportive care. Prognosis is guarded. Subjective Date of service: 01/10/21 Narrative: No acute events overnight. CT scan of the abdomen pelvis done last night significant for fluid collection just underneath the anterior abdominal wall. Patient was tolerating dialysis well upon this evaluation. Objective Vital Signs - 12hr 01/10/21 01/10/21 01/10/21 01:00 01:16 01:30 Temperature Pulse Rate 66 65 67 Pulse Rate [ From Monitor] Respiratory 24 24 24 Rate Blood Pressure 158/83 158/83 160/84 O2 Sat by Pulse 95 98 98 Oximetry O2 Sat by Pulse Oximetry [ Anterior Bilateral Throughout] 01/10/21 01/10/21 01/10/21 01:46 02:00 02:16 Temperature Pulse Rate 65 66 65 Pulse Rate [ From Monitor] Respiratory 24 24 24 Rate Blood Pressure 160/84 157/83 157/83 O2 Sat by Pulse 98 95 99 Oximetry O2 Sat by Pulse Oximetry [ Anterior Bilateral Throughout] 01/10/21 01/10/21 01/10/21 02:30 02:46 03:00 Temperature Pulse Rate 66 65 68 Pulse Rate [ From Monitor] Respiratory 24 24 24 Rate Blood Pressure 164/84 157/83 155/83 O2 Sat by Pulse 97 98 93 Oximetry O2 Sat by Pulse Oximetry [ Anterior Bilateral Throughout] 01/10/21 01/10/21 01/10/21 03:16 03:30 03:46 Temperature Pulse Rate 66 64 63 Pulse Rate [ From Monitor] Respiratory 24 24 24 Rate Blood Pressure 155/83 150/81 150/81 O2 Sat by Pulse 98 96 98 Oximetry O2 Sat by Pulse Oximetry [ Anterior Bilateral Throughout] 01/10/21 01/10/21 01/10/21 04:00 04:16 04:30 Temperature 97.9 F Pulse Rate 64 63 59 L Pulse Rate [ 61 From Monitor] Respiratory 24 24 24 Rate Blood Pressure 158/83 158/83 161/80 O2 Sat by Pulse 96 98 97 Oximetry O2 Sat by Pulse Oximetry [ Anterior Bilateral Throughout] 01/10/21 01/10/21 01/10/21 04:46 05:00 05:16 Temperature Pulse Rate 63 70 67 Pulse Rate [ From Monitor] Respiratory 24 24 24 Rate Blood Pressure 161/80 142/74 142/74 O2 Sat by Pulse 98 93 98 Oximetry O2 Sat by Pulse Oximetry [ Anterior Bilateral Throughout] 01/10/21 01/10/21 01/10/21 05:30 05:46 06:00 Temperature Pulse Rate 63 64 63 Pulse Rate [ From Monitor] Respiratory 24 24 24 Rate Blood Pressure 141/74 142/74 139/72 O2 Sat by Pulse 95 98 95 Oximetry O2 Sat by Pulse Oximetry [ Anterior Bilateral Throughout] 01/10/21 01/10/21 01/10/21 06:16 06:30 06:35 Temperature 97.7 F Pulse Rate 62 59 L Pulse Rate [ From Monitor] Respiratory 24 24 Rate Blood Pressure 139/72 140/70 O2 Sat by Pulse 98 96 Oximetry O2 Sat by Pulse Oximetry [ Anterior Bilateral Throughout] 01/10/21 01/10/21 01/10/21 06:46 07:00 07:09 Temperature 98.1 F Pulse Rate 61 70 Pulse Rate [ From Monitor] Respiratory 24 24 Rate Blood Pressure 140/70 144/77 O2 Sat by Pulse 98 97 Oximetry O2 Sat by Pulse Oximetry [ Anterior Bilateral Throughout] 01/10/21 01/10/21 01/10/21 07:16 07:30 07:42 Temperature Pulse Rate 64 70 61 Pulse Rate [ From Monitor] Respiratory 24 14 Rate Blood Pressure 140/70 155/77 O2 Sat by Pulse 98 99 Oximetry O2 Sat by Pulse Oximetry [ Anterior Bilateral Throughout] 01/10/21 01/10/21 01/10/21 07:46 08:00 08:16 Temperature 96.8 F L Pulse Rate 64 61 62 Pulse Rate [ 61 From Monitor] Respiratory 24 99 H 24 Rate Blood Pressure 144/77 164/76 155/77 O2 Sat by Pulse 99 35 L 99 Oximetry O2 Sat by Pulse Oximetry [ Anterior Bilateral Throughout] 01/10/21 01/10/21 01/10/21 08:30 08:35 08:46 Temperature Pulse Rate 61 64 75 Pulse Rate [ From Monitor] Respiratory 24 22 Rate Blood Pressure 144/73 144/73 144/73 O2 Sat by Pulse 97 100 94 Oximetry O2 Sat by Pulse Oximetry [ Anterior Bilateral Throughout] 01/10/21 01/10/21 01/10/21 09:00 09:10 09:15 Temperature 98.3 F Pulse Rate 77 78 71 Pulse Rate [ From Monitor] Respiratory 14 21 Rate Blood Pressure 156/76 160/76 161/78 O2 Sat by Pulse 90 Oximetry O2 Sat by Pulse 99 Oximetry [ Anterior Bilateral Throughout] 01/10/21 01/10/21 01/10/21 09:16 09:30 09:45 Temperature Pulse Rate 73 66 66 Pulse Rate [ From Monitor] Respiratory 17 17 Rate Blood Pressure 161/78 162/80 164/76 O2 Sat by Pulse 98 Oximetry O2 Sat by Pulse Oximetry [ Anterior Bilateral Throughout] 01/10/21 01/10/21 01/10/21 09:46 10:00 10:15 Temperature Pulse Rate 67 62 63 Pulse Rate [ From Monitor] Respiratory 11 L 11 L 12 Rate Blood Pressure 164/76 157/76 151/72 O2 Sat by Pulse 99 100 99 Oximetry O2 Sat by Pulse Oximetry [ Anterior Bilateral Throughout] 01/10/21 01/10/21 01/10/21 10:30 10:45 10:46 Temperature Pulse Rate 51 L 53 L 53 L Pulse Rate [ From Monitor] Respiratory 24 24 Rate Blood Pressure 149/71 162/74 162/74 O2 Sat by Pulse 100 100 Oximetry O2 Sat by Pulse Oximetry [ Anterior Bilateral Throughout] 01/10/21 01/10/21 01/10/21 11:00 11:15 11:30 Temperature Pulse Rate 56 L 65 70 Pulse Rate [ From Monitor] Respiratory 16 24 21 Rate Blood Pressure 159/74 166/82 166/82 O2 Sat by Pulse 100 99 98 Oximetry O2 Sat by Pulse Oximetry [ Anterior Bilateral Throughout] 01/10/21 01/10/21 01/10/21 11:45 11:46 11:59 Temperature 98.3 F Pulse Rate 72 70 Pulse Rate [ From Monitor] Respiratory 19 Rate Blood Pressure 144/76 144/76 O2 Sat by Pulse 99 Oximetry O2 Sat by Pulse Oximetry [ Anterior Bilateral Throughout] 01/10/21 01/10/21 01/10/21 12:00 12:12 12:16 Temperature Pulse Rate 81 70 77 Pulse Rate [ From Monitor] Respiratory 18 17 Rate Blood Pressure 159/74 132/66 132/66 O2 Sat by Pulse 100 99 Oximetry O2 Sat by Pulse Oximetry [ Anterior Bilateral Throughout] 01/10/21 01/10/21 12:20 12:30 Temperature 97.4 F L Pulse Rate 79 76 Pulse Rate [ From Monitor] Respiratory 15 19 Rate Blood Pressure 142/76 142/76 O2 Sat by Pulse 97 Oximetry O2 Sat by Pulse Oximetry [ Anterior Bilateral Throughout] - General physical appearance well developed, no distress, no pain, chronically ill, obese - Respiratory normal expansion, normal respiratory effort, other (intubated on ventilator) - Abdomen soft, other (staple line intact, LAURA drains serous) - Labs 01/10/21 04:01 01/10/21 04:01 Diabetes panel 01/10/21 Range/Units 04:01 Sodium 128 L (137-145) mmol/L Potassium 5.0 D (3.6-5.0) mmol/L Chloride 90.4 L (98-107) mmol/L Carbon Dioxide 19 L (22-30) mmol/L BUN 113 H (9-20) mg/dL Creatinine 4.5 H (0.8-1.3) mg/dL Glucose 162 H (75-100) mg/dL Calcium 9.0 (8.4-10.2) mg/dL AST 22 (5-40) units/L ALT 19 (7-56) units/L Alkaline Phosphatase 117 (35-129) units/L Total Protein 6.2 L (6.3-8.2) g/dL Albumin 2.1 L (3.9-5) g/dL Calcium panel 01/10/21 Range/Units 04:01 Calcium 9.0 (8.4-10.2) mg/dL Phosphorus 5.70 H (2.5-4.5) mg/dL Albumin 2.1 L (3.9-5) g/dL Pituitary panel 01/10/21 Range/Units 04:01 Sodium 128 L (137-145) mmol/L Potassium 5.0 D (3.6-5.0) mmol/L Chloride 90.4 L (98-107) mmol/L Carbon Dioxide 19 L (22-30) mmol/L BUN 113 H (9-20) mg/dL Creatinine 4.5 H (0.8-1.3) mg/dL Glucose 162 H (75-100) mg/dL Calcium 9.0 (8.4-10.2) mg/dL Adrenal panel 01/10/21 Range/Units 04:01 Sodium 128 L (137-145) mmol/L Potassium 5.0 D (3.6-5.0) mmol/L Chloride 90.4 L (98-107) mmol/L Carbon Dioxide 19 L (22-30) mmol/L BUN 113 H (9-20) mg/dL Creatinine 4.5 H (0.8-1.3) mg/dL Glucose 162 H (75-100) mg/dL Calcium 9.0 (8.4-10.2) mg/dL Total Bilirubin 0.50 (0.1-1.2) mg/dL AST 22 (5-40) units/L ALT 19 (7-56) units/L Alkaline Phosphatase 117 (35-129) units/L Total Protein 6.2 L (6.3-8.2) g/dL Albumin 2.1 L (3.9-5) g/dL
[2021-01-10] MEDS ORDERED: TOTAL PARENTERAL NUTRITION 1,999.92 ML IV SCH (20:00)
[2021-01-11] MEDS: METOCLOPRAMIDE 10 MG/2 ML INJ IV SCH ×5 (00:05→23:17)
[2021-01-11] MEDS: INSULIN REGULAR, HUMAN 100 UNITS/1 ML SUB-Q SCH ×4 (00:08→18:35)
[2021-01-11] MEDS: HEPARIN 5,000 UNIT/1 ML VIAL SUB-Q SCH ×3 (05:45→21:39)
[2021-01-11 06:45] LABS: Calcium 8.8 mg/dL (8.4-10.2)
[2021-01-11] MEDS ORDERED: ONDANSETRON 4 MG/2 ML INJ ONE (08:08)
[2021-01-11] MEDS: HYDROmorphone 1 MG/1 ML INJ IV PRN ×2 (08:08→12:23)
[2021-01-11] MEDS ORDERED: ONDANSETRON 4 MG/2 ML INJ IV PRN (08:09)
[2021-01-11] MEDS: hydrALAZINE 20 MG/1 ML INJ IV PRN ×4 (08:15→23:32)
[2021-01-11] MEDS ORDERED: niCARdipine 50 MG in SODIUM CHLORIDE 0.9% 250ML 230 ML IV SCH (09:00)
--- NOTE | 2021-01-11 09:09 | Progress Note ---
Assessment and Plan Impression * Nonoliguric acute kidney injury secondary to ATN --HD initiated December 30 * Incarcerated hernia with ischemic bowel. Status post bowel resection * Hypernatremia, now with hyponatremia * Fluid overload * Sepsis * Respiratory failure, intubated * Hyperkalemia * Metabolic Acidosis, Gap * Hypoalbuminemia * Anemia Recommendations * No indication for HD today * Maintain haley cathteter for strict I/O * Transfuse for Hb < 7 * TPN per nutrition/primary * Pressors prn to maintain MAP greater than 65 * Avoid nephrotoxins * Monitor fluid status and electrolytes * Primary and consult notes reviewed Subjective Date of service: 01/11/21 Principal diagnosis: SBO and necrosis of large part of small intestine Interval history: Patient remains intubated. FiO2 35, PEEP 6. He is s/p HD yesterday. Objective - Vital Signs Vital signs: Vital Signs - 12hr 01/10/21 01/10/21 01/10/21 21:15 21:31 21:45 Temperature Pulse Rate 66 66 66 Pulse Rate [ From Monitor] Respiratory 25 H 25 H 25 H Rate Blood Pressure 121/61 121/61 121/61 O2 Sat by Pulse 99 98 99 Oximetry 01/10/21 01/10/21 01/10/21 22:00 22:15 22:31 Temperature Pulse Rate 73 70 65 Pulse Rate [ From Monitor] Respiratory 24 24 23 Rate Blood Pressure 133/70 133/70 133/70 O2 Sat by Pulse 99 99 99 Oximetry 01/10/21 01/10/21 01/10/21 22:35 22:45 23:01 Temperature Pulse Rate 64 66 76 Pulse Rate [ From Monitor] Respiratory 24 25 H 24 Rate Blood Pressure 133/70 133/70 137/71 O2 Sat by Pulse 98 99 99 Oximetry 01/10/21 01/10/21 01/10/21 23:15 23:31 23:45 Temperature Pulse Rate 74 68 65 Pulse Rate [ From Monitor] Respiratory 24 24 24 Rate Blood Pressure 137/71 137/71 137/71 O2 Sat by Pulse 99 99 99 Oximetry 01/11/21 01/11/21 01/11/21 00:00 00:05 00:15 Temperature 97.4 F L Pulse Rate 65 101 H 64 Pulse Rate [ 65 From Monitor] Respiratory 24 24 Rate Blood Pressure 108/56 167/80 108/56 O2 Sat by Pulse 99 100 99 Oximetry 01/11/21 01/11/21 01/11/21 00:31 00:45 01:00 Temperature Pulse Rate 63 65 70 Pulse Rate [ From Monitor] Respiratory 24 24 24 Rate Blood Pressure 108/56 108/56 102/66 O2 Sat by Pulse 99 99 100 Oximetry 01/11/21 01/11/21 01/11/21 01:15 01:31 01:45 Temperature Pulse Rate 67 63 64 Pulse Rate [ From Monitor] Respiratory 24 24 24 Rate Blood Pressure 102/66 102/66 102/66 O2 Sat by Pulse 100 100 100 Oximetry 01/11/21 01/11/21 01/11/21 02:01 02:15 02:31 Temperature Pulse Rate 78 66 84 Pulse Rate [ From Monitor] Respiratory 25 H 25 H 24 Rate Blood Pressure 167/80 167/80 167/80 O2 Sat by Pulse 99 99 99 Oximetry 01/11/21 01/11/21 01/11/21 02:45 03:01 03:15 Temperature Pulse Rate 93 H 89 Pulse Rate [ From Monitor] Respiratory 28 H 39 H 30 H Rate Blood Pressure 167/80 172/95 172/95 O2 Sat by Pulse 98 99 97 Oximetry 01/11/21 01/11/21 01/11/21 03:31 03:45 03:57 Temperature Pulse Rate 116 H 100 H 102 H Pulse Rate [ From Monitor] Respiratory Rate Blood Pressure 172/95 172/95 172/95 O2 Sat by Pulse 97 98 100 Oximetry 01/11/21 01/11/21 01/11/21 04:00 04:15 04:31 Temperature 97.9 F Pulse Rate 98 H 94 H 90 Pulse Rate [ 96 H From Monitor] Respiratory 20 22 24 Rate Blood Pressure 170/80 170/80 170/80 O2 Sat by Pulse 100 97 99 Oximetry 01/11/21 01/11/21 01/11/21 04:45 05:01 05:15 Temperature Pulse Rate 77 73 78 Pulse Rate [ From Monitor] Respiratory 24 15 24 Rate Blood Pressure 170/80 106/53 106/53 O2 Sat by Pulse 91 98 98 Oximetry 01/11/21 01/11/21 01/11/21 05:31 05:45 06:00 Temperature Pulse Rate 72 72 67 Pulse Rate [ From Monitor] Respiratory 24 24 24 Rate Blood Pressure 106/53 106/53 116/56 O2 Sat by Pulse 100 100 100 Oximetry 01/11/21 01/11/21 01/11/21 06:15 06:31 06:45 Temperature Pulse Rate 66 65 63 Pulse Rate [ From Monitor] Respiratory 24 24 24 Rate Blood Pressure 116/56 116/56 116/56 O2 Sat by Pulse 97 97 98 Oximetry 01/11/21 01/11/21 01/11/21 07:00 07:10 07:15 Temperature 97.8 F Pulse Rate 65 63 Pulse Rate [ From Monitor] Respiratory 24 24 Rate Blood Pressure 137/67 137/67 O2 Sat by Pulse 100 99 Oximetry 01/11/21 01/11/21 01/11/21 07:28 07:31 07:45 Temperature Pulse Rate 67 80 87 Pulse Rate [ From Monitor] Respiratory 11 L 14 Rate Blood Pressure 116/56 137/67 137/67 O2 Sat by Pulse 100 100 100 Oximetry 01/11/21 01/11/21 01/11/21 08:01 08:15 08:30 Temperature Pulse Rate 105 H 124 H 128 H Pulse Rate [ From Monitor] Respiratory 49 H 44 H 29 H Rate Blood Pressure 137/67 242/122 235/111 O2 Sat by Pulse 99 97 96 Oximetry 01/11/21 08:45 Temperature Pulse Rate 123 H Pulse Rate [ From Monitor] Respiratory 29 H Rate Blood Pressure 179/85 O2 Sat by Pulse 98 Oximetry - General Appearance General appearance: well-developed, well-nourished EENT: ATNC, other (ETT in place) Respiratory: Present: Other (coarse BS) Cardiology: regular, S1S2 Gastrointestinal: hypoactive bowel sounds, obese Integumentary: no rash, warm and dry Musculoskeletal: other (1+ edema) - Lab 01/10/21 04:01 01/11/21 04:45 Most recent lab results ABG pH 7.311 (7.320-7.450) L 01/11/21 04:00 ABG pCO2 37.9 mm Hg 01/05/21 03:50 ABG pO2 136.8 mm Hg (80.0-90.0) H 01/05/21 03:50 ABG HCO3 22.4 mmol/L (20.0-26.0) 01/05/21 03:50 ABG O2 Saturation 96.2 (0-100) 01/11/21 04:00 Calcium 8.8 mg/dL (8.4-10.2) 01/11/21 04:45 Phosphorus 4.20 mg/dL (2.5-4.5) D 01/11/21 04:45 Magnesium 1.90 mg/dL (1.7-2.3) 01/11/21 04:45 Urine Creatinine 78.1 mg/dL (0.1-20.0) H 12/23/20 12:15 Urine Sodium 13 mmol/L 12/23/20 12:15 Medications & Allergies - Medications Allergies/Adverse Reactions: Allergies Iodinated Contrast Media Adverse Reaction (Verified 09/04/18 14:20) Unknown Home Medications: Home Medications Medication Instructions Recorded Confirmed Last Taken Type Aspirin 81 mg PO DAILY #30 tab.chew 09/08/18 01/04/21 03/31/20 09:28 Rx AtorvaSTATin [Lipitor] 80 mg PO QHS tablet 05/08/19 01/04/21 03/28/20 Rx Albuterol Sulfate [Proventil Hfa] 13.4 gm IH Q6H #1 hfa.aer.ad 04/01/20 01/04/21 Unknown Rx Clopidogrel [Plavix] 75 mg PO DAILY #30 tablet 04/01/20 01/04/21 Unknown Rx Gabapentin 300 mg PO BID@0700,1800 30 Days 04/01/20 01/04/21 Unknown Rx capsule Gabapentin 600 mg PO QHS 30 Days capsule 04/01/20 01/04/21 Unknown Rx Metoprolol [Lopressor TAB] 25 mg PO BID #60 tablet 04/01/20 01/04/21 Unknown Rx [place]-3/Dha/Epa/Fish Oil [[place] 3 1 each PO BID #60 capsule 04/01/20 01/04/21 Unknown Rx 500 Softgel] Tiotropium [place] [Spiriva] 2 puff IH DAILY #30 cap.w.dev 04/01/20 01/04/21 Unknown Rx Ubidecarenone [Co Q-10] 10 mg PO BID #60 tab 04/01/20 01/04/21 03/29/20 Rx cilostazoL [Pletal] 50 mg PO BID 30 Days tablet 04/01/20 01/04/21 Unknown Rx oxyCODONE /ACETAMINOPHEN [Percocet 2 tab PO Q6H PRN tablet 04/01/20 01/04/21 Unknown Rx 5/325 mg] Phosphorus #1 [K-Phos Neutral] 250 mg PO QID 2 Days #8 tablet 09/14/20 01/04/21 Unknown Rx Active Medications: Generic Name Dose Route Start Last Admin Trade Name Freq PRN Reason Stop Dose Admin Acetaminophen 650 mg 12/21/20 11:51 12/25/20 20:35 Acetaminophen 650 Mg Rect Supp [place] 650 mg Q4H PRN Administration TEMP >/=100.4 Lipase/Protease/Amylase 1 each 01/07/21 08:44 Lipase 10,500/Protease 25,000/Amylase 43,750 (Units) Dr Maharaj FEEDTUBE PRN PRN For Clogged Feeding Tube Bisacodyl 10 mg 12/30/20 11:00 01/10/21 11:53 Bisacodyl 10 Mg Rect Supp [place] 10 mg QDAY ASCENCION Administration Dextrose 50 ml 12/24/20 10:49 Dextrose 50% In Water (25gm) 50 Ml Syringe IV Q30MIN PRN Hypoglycemia Protocol Famotidine 20 mg 12/26/20 10:00 01/10/21 11:53 Famotidine 20 Mg/2 Ml Inj IV 20 mg DAILY ASCENCION Administration Heparin Sodium (Porcine) 5,000 unit 01/06/21 14:00 01/11/21 05:45 Heparin 5,000 Unit/1 Ml Vial SUB-Q 5,000 unit Q8HR ASCENCION Administration Hydralazine HCl 10 mg 01/09/21 16:13 01/11/21 08:15 Hydralazine 20 Mg/1 Ml Inj IV 10 mg Q4H PRN Administration Hypertension Hydromorphone HCl 1 mg 01/06/21 15:58 01/11/21 08:08 Hydromorphone 1 Mg/1 Ml Inj IV 1 mg Q4H PRN Administration Pain , Severe (7-10) Hydrophilic Ointment 1 applic 12/20/20 21:58 Lip Therapy Vaseline TP Q2HR PRN Dry Lips Propofol 1,000 mg in 100 mls @ 3.606 mls/hr 12/20/20 22:00 01/11/21 08:25 Diprivan 10 Mg/Ml IV 40 mcg/kg/min TITR ASCENCION 28.848 mls/hr Titration Protocol 5 MCG/KG/MIN NORepinephrine/NS 8 MG-250 ML 8 mg in 250 mls @ 3.75 mls/hr 12/21/20 09:00 01/02/21 06:15 Norepinephrine/Ns 8 Mg-250 Ml (Double Conc) IV 0 mcg/min TITRATE ASCENCION 0 mls/hr Titration Protocol 2 MCG/MIN Dexmedetomidine HCl 400 mcg/ 104 mls @ 7.322 mls/hr 01/04/21 11:00 01/11/21 08:18 Sodium Chloride IV 0.8 mcg/kg/hr TITRATE ASCENCION 29.286 mls/hr Titration Protocol 0.2 MCG/KG/HR Sodium Chloride 100 mls @ 999 mls/hr 01/10/21 09:08 Nacl 0.9% IV MARILU PRN Hypotension Amino Acids/Electrolytes/Dextrose 1,999.92 mls @ 83.33 mls/hr 01/10/21 20:00 01/10/21 21:03 Tpn Adult IV 01/11/21 19:59 83.33 mls/hr DAILY@2000 ASCENCION Administration Protocol Nicardipine HCl 50 mg/ Sodium 250 mls @ 25 mls/hr 01/11/21 09:00 Chloride IV TITR ASCENCION Protocol 5 MG/HR Insulin Human Regular 0 units 12/28/20 00:00 01/11/21 06:41 Insulin Regular, Human 100 Units/1 Ml SUB-Q Not Given Q6H ASCENCION Protocol Metoclopramide HCl 5 mg 01/09/21 18:00 01/11/21 05:45 Metoclopramide 10 Mg/2 Ml Inj IV 5 mg Q6HR ASCENCION Administration Multi-Ingred Cream/Lotion/Oil/Oint 1 applic 12/20/20 21:58 01/03/21 01:13 Mineral Oil/Petrolatum, White Ophth Oint 3.5 Gm OU 1 applic Q4HR PRN Administration Dry Eye(s) Ondansetron HCl 4 mg 01/11/21 08:09 Ondansetron 4 Mg/2 Ml Inj IV Q8H PRN Nausea And Vomiting Simple Syrup 15 ml 01/07/21 08:44 Simple Syrup 15 Ml FEEDTUBE PRN PRN Hypoglycemia Simple Syrup 30 ml 01/07/21 08:44 Simple Syrup 15 Ml FEEDTUBE PRN PRN Hypoglycemia Sodium Bicarbonate 325 mg 01/07/21 08:44 Sodium Bicarbonate 325 Mg Tab FEEDTUBE PRN PRN For Clogged Feeding Tube Sodium Chloride 10 ml 12/20/20 22:00 01/10/21 21:06 Sodium Chloride 0.9% 10 Ml Flush Syringe IV 10 ml BID ASCENCION Administration Sodium Chloride 10 ml 12/20/20 16:42 Sodium Chloride 0.9% 10 Ml Flush Syringe IV PRN PRN LINE FLUSH
--- NOTE | 2021-01-11 10:03 | Progress Note ---
Assessment and Plan 60 y/o male with abdominal catastrophe, s/p ex-lap with open abdomen, ventilated for pain control and support. 01/11/21: Will increase pain regimen. Scheduled the dilaudid to q4 and add a fent patch. Would like to avoid drip as we are trying to actively wean patient from mechanical ventilation. Spoke with CM who states [facility] has accepted patient but we are waiting on insurance authorization. HgB is stable this am and reviewed surgery and IR recs. I do no think the area of fluid needs to be sampled. 01/10/21: Spoke with surgery this am about CT findings. Will discuss with IR their thoughts on fluid. Not concerned about infection in that area. Main reason for CT was to see if we could figure out where blood was going as it was coming out of his bottom or NG contents. This is appears to be something small and slow, like a venous issues. Hopefully it has sealed off at this time. HgB is up to 8 this am patient did not get blood on yesterday. Off fent now, will continue to wean Diprovan and Precedex as tolerated. Spoke with CM and asked to send out to [facility]'s but will steal try to aggressively wean. Making good urine, hopeful kidney's will recover. Will ask renal about other ways to remove volume in third spacing (albumin, lasix etc). Prognosis still remains guarded. Continue TPN for now. 01/09/21: Will obtain contrasted CT of abdomen and pelvis to look for potential pockets of blood or bleeding. Spoke with renal and they feel kidneys are recovering but ok with HD tomorrow if needed post dye load. Will attempt to wean Fent more and use prn dilaudid. Will start reglan to help with gut motility. Hopeful to be off TPN soon. Once sedation is off, can start SBT's. CCT 31 minutes. Subjective Date of service: 01/11/21 Principal diagnosis: SBO and necrosis of large part of small intestine Interval history: No acute events. On my eval patient was calm but got a call from surgery that he was very agitated tachypnic, tachycardic and hypertensive. Objective Vital Signs - 12hr 01/10/21 01/10/21 01/10/21 22:15 22:31 22:35 Temperature Pulse Rate 70 65 64 Pulse Rate [ From Monitor] Respiratory 24 23 24 Rate Blood Pressure 133/70 133/70 133/70 O2 Sat by Pulse 99 99 98 Oximetry 01/10/21 01/10/21 01/10/21 22:45 23:01 23:15 Temperature Pulse Rate 66 76 74 Pulse Rate [ From Monitor] Respiratory 25 H 24 24 Rate Blood Pressure 133/70 137/71 137/71 O2 Sat by Pulse 99 99 99 Oximetry 01/10/21 01/10/21 01/11/21 23:31 23:45 00:00 Temperature 97.4 F L Pulse Rate 68 65 65 Pulse Rate [ 65 From Monitor] Respiratory 24 24 24 Rate Blood Pressure 137/71 137/71 108/56 O2 Sat by Pulse 99 99 99 Oximetry 01/11/21 01/11/21 01/11/21 00:05 00:15 00:31 Temperature Pulse Rate 101 H 64 63 Pulse Rate [ From Monitor] Respiratory 24 24 Rate Blood Pressure 167/80 108/56 108/56 O2 Sat by Pulse 100 99 99 Oximetry 01/11/21 01/11/21 01/11/21 00:45 01:00 01:15 Temperature Pulse Rate 65 70 67 Pulse Rate [ From Monitor] Respiratory 24 24 24 Rate Blood Pressure 108/56 102/66 102/66 O2 Sat by Pulse 99 100 100 Oximetry 01/11/21 01/11/21 01/11/21 01:31 01:45 02:01 Temperature Pulse Rate 63 64 78 Pulse Rate [ From Monitor] Respiratory 24 24 25 H Rate Blood Pressure 102/66 102/66 167/80 O2 Sat by Pulse 100 100 99 Oximetry 01/11/21 01/11/21 01/11/21 02:15 02:31 02:45 Temperature Pulse Rate 66 84 93 H Pulse Rate [ From Monitor] Respiratory 25 H 24 28 H Rate Blood Pressure 167/80 167/80 167/80 O2 Sat by Pulse 99 99 98 Oximetry 01/11/21 01/11/21 01/11/21 03:01 03:15 03:31 Temperature Pulse Rate 89 116 H Pulse Rate [ From Monitor] Respiratory 39 H 30 H 22 Rate Blood Pressure 172/95 172/95 172/95 O2 Sat by Pulse 99 97 97 Oximetry 01/11/21 01/11/21 01/11/21 03:45 03:57 04:00 Temperature 97.9 F Pulse Rate 100 H 102 H 98 H Pulse Rate [ 96 H From Monitor] Respiratory 21 20 Rate Blood Pressure 172/95 172/95 170/80 O2 Sat by Pulse 98 100 100 Oximetry 01/11/21 01/11/21 01/11/21 04:15 04:31 04:45 Temperature Pulse Rate 94 H 90 77 Pulse Rate [ From Monitor] Respiratory 22 24 24 Rate Blood Pressure 170/80 170/80 170/80 O2 Sat by Pulse 97 99 91 Oximetry 01/11/21 01/11/21 01/11/21 05:01 05:15 05:31 Temperature Pulse Rate 73 78 72 Pulse Rate [ From Monitor] Respiratory 15 24 24 Rate Blood Pressure 106/53 106/53 106/53 O2 Sat by Pulse 98 98 100 Oximetry 01/11/21 01/11/21 01/11/21 05:45 06:00 06:15 Temperature Pulse Rate 72 67 66 Pulse Rate [ From Monitor] Respiratory 24 24 24 Rate Blood Pressure 106/53 116/56 116/56 O2 Sat by Pulse 100 100 97 Oximetry 01/11/21 01/11/21 01/11/21 06:31 06:45 07:00 Temperature Pulse Rate 65 63 65 Pulse Rate [ From Monitor] Respiratory 24 24 24 Rate Blood Pressure 116/56 116/56 137/67 O2 Sat by Pulse 97 98 100 Oximetry 01/11/21 01/11/21 01/11/21 07:10 07:15 07:28 Temperature 97.8 F Pulse Rate 63 67 Pulse Rate [ From Monitor] Respiratory 24 Rate Blood Pressure 137/67 116/56 O2 Sat by Pulse 99 100 Oximetry 01/11/21 01/11/21 01/11/21 07:31 07:45 08:00 Temperature Pulse Rate 80 87 107 H Pulse Rate [ 106 H From Monitor] Respiratory 11 L 14 24 Rate Blood Pressure 137/67 137/67 O2 Sat by Pulse 100 100 100 Oximetry 01/11/21 01/11/21 01/11/21 08:01 08:15 08:30 Temperature Pulse Rate 105 H 124 H 128 H Pulse Rate [ From Monitor] Respiratory 49 H 44 H 29 H Rate Blood Pressure 137/67 242/122 235/111 O2 Sat by Pulse 99 97 96 Oximetry 01/11/21 01/11/21 08:45 09:00 Temperature Pulse Rate 123 H 113 H Pulse Rate [ From Monitor] Respiratory 29 H 27 H Rate Blood Pressure 179/85 178/92 O2 Sat by Pulse 98 99 Oximetry Constitutional: comatose (secondary to sedation.), other (critically ill on ventilator) Eyes: non-icteric ENT: oropharynx moist Neck: supple Effort: normal Ascultation: Bilateral: other (coarse BS bilaterally) Cardiovascular: other (tachy, RR; no mrg) Gastrointestinal: other (abdomen open) Integumentary: normal Extremities: no cyanosis, no edema, pink and warm Neurologic: other (sedated) CBC and BMP: 01/10/21 04:01 01/11/21 04:45 ABG, PT/INR, D-dimer: ABG ABG pH 7.311 (7.320-7.450) L 01/11/21 04:00 POC ABG pCO2 49.2 mmHg (32.0-48.0) H 01/11/21 04:00 ABG pCO2 37.9 mm Hg 01/05/21 03:50 POC ABG pO2 90.2 mmHg (83-108) 01/11/21 04:00 ABG pO2 136.8 mm Hg (80.0-90.0) H 01/05/21 03:50 POC ABG HCO3 24.3 01/11/21 04:00 ABG O2 Saturation 96.2 (0-100) 01/11/21 04:00 PT/INR, D-dimer PT 15.4 Sec. (12.2-14.9) H 01/10/21 04:01 INR 1.17 (0.87-1.13) H 01/10/21 04:01 Abnormal lab findings: Abnormal Labs 12/20/20 12/20/20 12/20/20 13:58 13:58 13:58 WBC 41.1 H* RBC 5.59 H Hgb 16.2 H Hct 47.7 H MCV MCHC RDW 15.5 H Plt Count 486 H Seg Neuts % (Manual) Lymphocytes % (Manual) Seg Neutrophils # Man Lymphocytes # (Manual) Monocytes # (Manual) PT INR APTT Fibrinogen ABG pH POC ABG pCO2 POC ABG pO2 ABG pO2 ABG Base Excess ABG Hemoglobin ABG Oxyhemoglobin ABG Sodium ABG Potassium ABG Chloride ABG Glucose Carboxyhemoglobin Sodium 130 L Potassium Chloride 80.7 L Carbon Dioxide BUN 37 H Creatinine Glucose 101 H POC Glucose Lactic Acid 3.20 H* Calcium Ionized Calcium Phosphorus Magnesium AST Alkaline Phosphatase 142 H Total Protein 6.2 L Albumin 2.2 L Triglycerides Arterial Blood Glucose Arterial Blood Ionized Calcium Urine Creatinine Crossmatch 12/20/20 12/20/20 12/20/20 13:58 20:35 21:30 WBC RBC Hgb Hct MCV MCHC RDW Plt Count Seg Neuts % (Manual) Lymphocytes % (Manual) Seg Neutrophils # Man Lymphocytes # (Manual) Monocytes # (Manual) PT INR APTT 49.4 H Fibrinogen ABG pH 7.313 L POC ABG pCO2 POC ABG pO2 ABG pO2 104.4 H ABG Base Excess ABG Hemoglobin ABG Oxyhemoglobin ABG Sodium ABG Potassium ABG Chloride ABG Glucose Carboxyhemoglobin Sodium Potassium Chloride Carbon Dioxide BUN Creatinine Glucose POC Glucose 122 H Lactic Acid Calcium Ionized Calcium Phosphorus Magnesium AST Alkaline Phosphatase Total Protein Albumin Triglycerides Arterial Blood Glucose Arterial Blood Ionized Calcium Urine Creatinine Crossmatch 12/21/20 12/21/20 12/21/20 03:06 08:14 08:14 WBC 23.9 H RBC Hgb Hct MCV MCHC RDW 15.7 H Plt Count Seg Neuts % (Manual) 91.0 H Lymphocytes % (Manual) 3.0 L Seg Neutrophils # Man 21.7 H Lymphocytes # (Manual) 0.7 L Monocytes # (Manual) 1.4 H PT INR APTT Fibrinogen ABG pH 7.464 H POC ABG pCO2 POC ABG pO2 202.9 H ABG pO2 ABG Base Excess ABG Hemoglobin ABG Oxyhemoglobin ABG Sodium 133.7 L ABG Potassium ABG Chloride ABG Glucose 122 H Carboxyhemoglobin Sodium Potassium Chloride Carbon Dioxide BUN 46 H Creatinine Glucose 103 H POC Glucose Lactic Acid Calcium 6.6 L D Ionized Calcium Phosphorus Magnesium AST Alkaline Phosphatase Total Protein 5.4 L Albumin 2.3 L Triglycerides Arterial Blood Glucose 122 H Arterial Blood Ionized Calcium 3.5 L Urine Creatinine Crossmatch 12/21/20 12/21/20 12/22/20 17:18 21:28 04:45 WBC 22.9 H RBC Hgb Hct MCV MCHC RDW 15.7 H Plt Count Seg Neuts % (Manual) Lymphocytes % (Manual) Seg Neutrophils # Man Lymphocytes # (Manual) Monocytes # (Manual) PT INR APTT Fibrinogen ABG pH POC ABG pCO2 POC ABG pO2 ABG pO2 ABG Base Excess ABG Hemoglobin ABG Oxyhemoglobin ABG Sodium ABG Potassium ABG Chloride ABG Glucose Carboxyhemoglobin Sodium Potassium Chloride Carbon Dioxide BUN Creatinine Glucose POC Glucose 108 H Lactic Acid Calcium Ionized Calcium 4.1 L Phosphorus Magnesium AST Alkaline Phosphatase Total Protein Albumin Triglycerides Arterial Blood Glucose Arterial Blood Ionized Calcium Urine Creatinine Crossmatch 12/22/20 12/22/20 12/22/20 04:45 05:00 11:38 WBC RBC Hgb Hct MCV MCHC RDW Plt Count Seg Neuts % (Manual) Lymphocytes % (Manual) Seg Neutrophils # Man Lymphocytes # (Manual) Monocytes # (Manual) PT INR APTT Fibrinogen ABG pH 7.462 H POC ABG pCO2 POC ABG pO2 ABG pO2 ABG Base Excess ABG Hemoglobin ABG Oxyhemoglobin ABG Sodium ABG Potassium ABG Chloride ABG Glucose 118 H Carboxyhemoglobin Sodium 146 H Potassium Chloride Carbon Dioxide BUN 45 H Creatinine Glucose 116 H POC Glucose 115 H Lactic Acid Calcium 6.9 L Ionized Calcium Phosphorus Magnesium AST Alkaline Phosphatase Total Protein Albumin Triglycerides Arterial Blood Glucose 118 H Arterial Blood Ionized Calcium 3.8 L Urine Creatinine Crossmatch 12/22/20 12/23/20 12/23/20 23:26 04:43 04:45 WBC 22.2 H RBC Hgb Hct MCV MCHC RDW 16.1 H Plt Count Seg Neuts % (Manual) Lymphocytes % (Manual) Seg Neutrophils # Man Lymphocytes # (Manual) Monocytes # (Manual) PT INR APTT Fibrinogen ABG pH POC ABG pCO2 POC ABG pO2 ABG pO2 ABG Base Excess ABG Hemoglobin ABG Oxyhemoglobin ABG Sodium 147.4 H ABG Potassium ABG Chloride 112.0 H ABG Glucose 130 H Carboxyhemoglobin 0.4 L Sodium Potassium Chloride Carbon Dioxide BUN Creatinine Glucose POC Glucose 110 H Lactic Acid Calcium Ionized Calcium Phosphorus Magnesium AST Alkaline Phosphatase Total Protein Albumin Triglycerides Arterial Blood Glucose 130 H Arterial Blood Ionized Calcium 3.8 L Urine Creatinine Crossmatch 12/23/20 12/23/20 12/23/20 04:45 05:17 11:22 WBC RBC Hgb Hct MCV MCHC RDW Plt Count Seg Neuts % (Manual) Lymphocytes % (Manual) Seg Neutrophils # Man Lymphocytes # (Manual) Monocytes # (Manual) PT INR APTT Fibrinogen ABG pH POC ABG pCO2 POC ABG pO2 ABG pO2 ABG Base Excess ABG Hemoglobin ABG Oxyhemoglobin ABG Sodium ABG Potassium ABG Chloride ABG Glucose Carboxyhemoglobin Sodium 154 H D Potassium Chloride 110.9 H Carbon Dioxide BUN 54 H Creatinine 1.8 H Glucose 115 H POC Glucose 116 H 130 H Lactic Acid Calcium 7.0 L Ionized Calcium Phosphorus Magnesium AST Alkaline Phosphatase Total Protein Albumin Triglycerides Arterial Blood Glucose Arterial Blood Ionized Calcium Urine Creatinine Crossmatch 12/23/20 12/23/20 12/23/20 12:15 12:15 23:15 WBC RBC Hgb Hct MCV MCHC RDW Plt Count Seg Neuts % (Manual) Lymphocytes % (Manual) Seg Neutrophils # Man Lymphocytes # (Manual) Monocytes # (Manual) PT INR APTT Fibrinogen ABG pH POC ABG pCO2 POC ABG pO2 ABG pO2 ABG Base Excess ABG Hemoglobin ABG Oxyhemoglobin ABG Sodium ABG Potassium ABG Chloride ABG Glucose Carboxyhemoglobin Sodium 154 H Potassium Chloride Carbon Dioxide BUN Creatinine 1.5 H Glucose POC Glucose 132 H Lactic Acid Calcium Ionized Calcium Phosphorus Magnesium AST Alkaline Phosphatase Total Protein Albumin Triglycerides Arterial Blood Glucose Arterial Blood Ionized Calcium Urine Creatinine 78.1 H Crossmatch 12/24/20 12/24/20 12/24/20 04:19 04:30 04:30 WBC 18.3 H RBC Hgb Hct MCV MCHC RDW 16.5 H Plt Count Seg Neuts % (Manual) Lymphocytes % (Manual) Seg Neutrophils # Man Lymphocytes # (Manual) Monocytes # (Manual) PT INR APTT Fibrinogen ABG pH POC ABG pCO2 POC ABG pO2 ABG pO2 ABG Base Excess ABG Hemoglobin ABG Oxyhemoglobin ABG Sodium 149.7 H ABG Potassium ABG Chloride 116.0 H ABG Glucose 180 H Carboxyhemoglobin Sodium 155 H Potassium Chloride 116.1 H Carbon Dioxide BUN 52 H Creatinine 1.5 H Glucose 175 H POC Glucose Lactic Acid Calcium 6.8 L Ionized Calcium Phosphorus Magnesium 3.00 H AST Alkaline Phosphatase Total Protein 5.7 L Albumin 1.8 L Triglycerides Arterial Blood Glucose 180 H Arterial Blood Ionized Calcium 3.7 L Urine Creatinine Crossmatch 12/24/20 12/24/20 12/24/20 05:24 11:21 18:05 WBC RBC Hgb Hct MCV MCHC RDW Plt Count Seg Neuts % (Manual) Lymphocytes % (Manual) Seg Neutrophils # Man Lymphocytes # (Manual) Monocytes # (Manual) PT INR APTT Fibrinogen ABG pH POC ABG pCO2 POC ABG pO2 ABG pO2 ABG Base Excess ABG Hemoglobin ABG Oxyhemoglobin ABG Sodium ABG Potassium ABG Chloride ABG Glucose Carboxyhemoglobin Sodium Potassium Chloride Carbon Dioxide BUN Creatinine Glucose POC Glucose 153 H 154 H 133 H Lactic Acid Calcium Ionized Calcium Phosphorus Magnesium AST Alkaline Phosphatase Total Protein Albumin Triglycerides Arterial Blood Glucose Arterial Blood Ionized Calcium Urine Creatinine Crossmatch 12/25/20 12/25/20 12/25/20 04:00 07:00 07:00 WBC 17.6 H RBC Hgb Hct MCV MCHC 31 L RDW 16.0 H Plt Count Seg Neuts % (Manual) Lymphocytes % (Manual) Seg Neutrophils # Man Lymphocytes # (Manual) Monocytes # (Manual) PT INR APTT Fibrinogen ABG pH POC ABG pCO2 POC ABG pO2 ABG pO2 ABG Base Excess ABG Hemoglobin ABG Oxyhemoglobin ABG Sodium 152.5 H ABG Potassium ABG Chloride 119.0 H ABG Glucose 136 H Carboxyhemoglobin Sodium Potassium Chloride Carbon Dioxide BUN Creatinine Glucose POC Glucose Lactic Acid Calcium Ionized Calcium Phosphorus Magnesium 2.70 H AST Alkaline Phosphatase Total Protein Albumin Triglycerides Arterial Blood Glucose 136 H Arterial Blood Ionized Calcium 3.7 L Urine Creatinine Crossmatch 12/25/20 12/25/20 12/25/20 07:00 11:24 16:32 WBC RBC Hgb Hct MCV MCHC RDW Plt Count Seg Neuts % (Manual) Lymphocytes % (Manual) Seg Neutrophils # Man Lymphocytes # (Manual) Monocytes # (Manual) PT INR APTT Fibrinogen ABG pH POC ABG pCO2 POC ABG pO2 ABG pO2 ABG Base Excess ABG Hemoglobin ABG Oxyhemoglobin ABG Sodium ABG Potassium ABG Chloride ABG Glucose Carboxyhemoglobin Sodium 156 H Potassium Chloride 118.0 H Carbon Dioxide BUN 44 H Creatinine 1.7 H Glucose 126 H POC Glucose 110 H 126 H Lactic Acid Calcium 6.9 L Ionized Calcium Phosphorus Magnesium AST Alkaline Phosphatase Total Protein Albumin Triglycerides Arterial Blood Glucose Arterial Blood Ionized Calcium Urine Creatinine Crossmatch 12/25/20 12/25/20 12/26/20 18:18 23:23 03:30 WBC RBC Hgb Hct MCV MCHC RDW Plt Count Seg Neuts % (Manual) Lymphocytes % (Manual) Seg Neutrophils # Man Lymphocytes # (Manual) Monocytes # (Manual) PT INR APTT Fibrinogen ABG pH POC ABG pCO2 POC ABG pO2 ABG pO2 ABG Base Excess ABG Hemoglobin 11.8 L ABG Oxyhemoglobin ABG Sodium ABG Potassium 4.7 H ABG Chloride 114.0 H ABG Glucose 132 H Carboxyhemoglobin Sodium 151 H Potassium Chloride 114.3 H Carbon Dioxide BUN 51 H Creatinine 2.6 H D Glucose 122 H POC Glucose 115 H Lactic Acid Calcium 6.4 L Ionized Calcium Phosphorus Magnesium AST Alkaline Phosphatase Total Protein Albumin Triglycerides Arterial Blood Glucose 132 H Arterial Blood Ionized Calcium 3.6 L Urine Creatinine Crossmatch 12/26/20 12/26/20 12/26/20 04:55 06:01 06:01 WBC 21.6 H RBC Hgb Hct MCV MCHC 31 L RDW 16.5 H Plt Count 136 L Seg Neuts % (Manual) Lymphocytes % (Manual) Seg Neutrophils # Man Lymphocytes # (Manual) Monocytes # (Manual) PT INR APTT Fibrinogen ABG pH POC ABG pCO2 POC ABG pO2 ABG pO2 ABG Base Excess ABG Hemoglobin ABG Oxyhemoglobin ABG Sodium ABG Potassium ABG Chloride ABG Glucose Carboxyhemoglobin Sodium 173 H* D Potassium 6.1 H* D Chloride 137.0 H Carbon Dioxide BUN 73 H Creatinine 3.8 H Glucose 125 H POC Glucose 112 H Lactic Acid Calcium 6.2 L Ionized Calcium Phosphorus 5.70 H D Magnesium 2.90 H AST Alkaline Phosphatase Total Protein Albumin Triglycerides Arterial Blood Glucose Arterial Blood Ionized Calcium Urine Creatinine Crossmatch 12/26/20 12/26/20 12/26/20 08:33 11:19 22:00 WBC RBC Hgb Hct MCV MCHC RDW Plt Count Seg Neuts % (Manual) Lymphocytes % (Manual) Seg Neutrophils # Man Lymphocytes # (Manual) Monocytes # (Manual) PT INR APTT Fibrinogen ABG pH POC ABG pCO2 POC ABG pO2 ABG pO2 ABG Base Excess ABG Hemoglobin ABG Oxyhemoglobin ABG Sodium ABG Potassium ABG Chloride ABG Glucose Carboxyhemoglobin Sodium 147 H D Potassium 5.8 H D Chloride 108.8 H Carbon Dioxide 21 L BUN 68 H 68 H Creatinine 3.8 H 4.1 H Glucose 144 H 154 H POC Glucose 144 H Lactic Acid Calcium 6.5 L 5.8 L* Ionized Calcium Phosphorus Magnesium AST 215 H Alkaline Phosphatase Total Protein 4.7 L Albumin 1.5 L Triglycerides Arterial Blood Glucose Arterial Blood Ionized Calcium Urine Creatinine Crossmatch 0612/26/20 12/27/20 23:13 Unknown 00:25 WBC RBC Hgb 11.1 L Hct MCV MCHC RDW Plt Count Seg Neuts % (Manual) Lymphocytes % (Manual) Seg Neutrophils # Man Lymphocytes # (Manual) Monocytes # (Manual) PT INR APTT Fibrinogen ABG pH POC ABG pCO2 POC ABG pO2 ABG pO2 ABG Base Excess ABG Hemoglobin ABG Oxyhemoglobin ABG Sodium ABG Potassium ABG Chloride ABG Glucose Carboxyhemoglobin Sodium Potassium Chloride Carbon Dioxide BUN Creatinine Glucose POC Glucose 163 H Lactic Acid Calcium Ionized Calcium Phosphorus 5.60 H Magnesium AST Alkaline Phosphatase Total Protein Albumin Triglycerides Arterial Blood Glucose Arterial Blood Ionized Calcium Urine Creatinine Crossmatch 12/27/20 12/27/20 12/27/20 02:57 04:15 04:15 WBC 28.5 H RBC Hgb 11.2 L Hct MCV MCHC 31 L RDW 16.5 H Plt Count 130 L Seg Neuts % (Manual) Lymphocytes % (Manual) Seg Neutrophils # Man Lymphocytes # (Manual) Monocytes # (Manual) PT INR APTT Fibrinogen ABG pH 7.238 L POC ABG pCO2 POC ABG pO2 139.1 H ABG pO2 ABG Base Excess ABG Hemoglobin 11.2 L ABG Oxyhemoglobin ABG Sodium 133.8 L ABG Potassium 5.2 H ABG Chloride ABG Glucose 182 H Carboxyhemoglobin Sodium 136 L Potassium 6.0 H Chloride Carbon Dioxide 18 L BUN 68 H Creatinine 4.1 H Glucose 166 H POC Glucose Lactic Acid Calcium 6.2 L Ionized Calcium Phosphorus 7.30 H D Magnesium AST Alkaline Phosphatase Total Protein Albumin Triglycerides 164 H Arterial Blood Glucose 182 H Arterial Blood Ionized Calcium 3.4 L Urine Creatinine Crossmatch 12/27/20 12/27/20 12/27/20 04:50 10:51 11:17 WBC RBC Hgb Hct MCV MCHC RDW Plt Count Seg Neuts % (Manual) Lymphocytes % (Manual) Seg Neutrophils # Man Lymphocytes # (Manual) Monocytes # (Manual) PT INR APTT Fibrinogen ABG pH POC ABG pCO2 POC ABG pO2 ABG pO2 ABG Base Excess ABG Hemoglobin ABG Oxyhemoglobin ABG Sodium ABG Potassium ABG Chloride ABG Glucose Carboxyhemoglobin Sodium Potassium Chloride Carbon Dioxide BUN Creatinine Glucose POC Glucose 140 H 113 H 154 H Lactic Acid Calcium Ionized Calcium Phosphorus Magnesium AST Alkaline Phosphatase Total Protein Albumin Triglycerides Arterial Blood Glucose Arterial Blood Ionized Calcium Urine Creatinine Crossmatch 12/27/20 12/27/20 12/27/20 12:40 14:40 23:17 WBC RBC Hgb Hct MCV MCHC RDW Plt Count Seg Neuts % (Manual) Lymphocytes % (Manual) Seg Neutrophils # Man Lymphocytes # (Manual) Monocytes # (Manual) PT INR APTT Fibrinogen ABG pH POC ABG pCO2 POC ABG pO2 ABG pO2 ABG Base Excess ABG Hemoglobin ABG Oxyhemoglobin ABG Sodium ABG Potassium ABG Chloride ABG Glucose Carboxyhemoglobin Sodium 135 L Potassium Chloride Carbon Dioxide 21 L BUN 62 H Creatinine 3.8 H Glucose 132 H POC Glucose 130 H Lactic Acid Calcium 5.6 L* Ionized Calcium 3.3 L Phosphorus Magnesium AST Alkaline Phosphatase Total Protein Albumin Triglycerides Arterial Blood Glucose Arterial Blood Ionized Calcium Urine Creatinine Crossmatch 12/28/20 12/28/20 12/28/20 05:36 07:08 07:28 WBC 27.2 H RBC 3.50 L Hgb 9.6 L Hct 30.8 L MCV MCHC 31 L RDW 16.1 H Plt Count 111 L Seg Neuts % (Manual) 95.0 H Lymphocytes % (Manual) Seg Neutrophils # Man 25.8 H Lymphocytes # (Manual) 0.0 L Monocytes # (Manual) 1.1 H PT INR APTT Fibrinogen ABG pH 7.200 L POC ABG pCO2 POC ABG pO2 67.2 L ABG pO2 ABG Base Excess ABG Hemoglobin 10.3 L ABG Oxyhemoglobin 89.6 L ABG Sodium 127.8 L ABG Potassium 5.1 H ABG Chloride ABG Glucose 132 H Carboxyhemoglobin 0.4 L Sodium Potassium Chloride Carbon Dioxide BUN Creatinine Glucose POC Glucose 128 H Lactic Acid Calcium Ionized Calcium Phosphorus Magnesium AST Alkaline Phosphatase Total Protein Albumin Triglycerides Arterial Blood Glucose 132 H Arterial Blood Ionized Calcium 3.5 L Urine Creatinine Crossmatch 12/28/20 12/28/20 12/28/20 07:28 11:37 13:25 WBC RBC Hgb Hct MCV MCHC RDW Plt Count Seg Neuts % (Manual) Lymphocytes % (Manual) Seg Neutrophils # Man Lymphocytes # (Manual) Monocytes # (Manual) PT INR APTT Fibrinogen ABG pH POC ABG pCO2 POC ABG pO2 ABG pO2 ABG Base Excess ABG Hemoglobin ABG Oxyhemoglobin ABG Sodium ABG Potassium ABG Chloride ABG Glucose Carboxyhemoglobin Sodium 131 L 133 L Potassium 5.9 H 5.1 H Chloride 97.1 L Carbon Dioxide 15 L 21 L BUN 70 H 77 H Creatinine 4.0 H 4.4 H Glucose 118 H 140 H POC Glucose 135 H Lactic Acid Calcium 6.3 L 6.3 L Ionized Calcium Phosphorus 7.10 H Magnesium AST 144 H Alkaline Phosphatase Total Protein 4.8 L Albumin 1.3 L Triglycerides Arterial Blood Glucose Arterial Blood Ionized Calcium Urine Creatinine Crossmatch 12/28/20 12/28/20 12/29/20 16:38 23:28 03:08 WBC RBC Hgb Hct MCV MCHC RDW Plt Count Seg Neuts % (Manual) Lymphocytes % (Manual) Seg Neutrophils # Man Lymphocytes # (Manual) Monocytes # (Manual) PT INR APTT Fibrinogen ABG pH 7.301 L POC ABG pCO2 POC ABG pO2 151.1 H ABG pO2 ABG Base Excess ABG Hemoglobin 8.7 L ABG Oxyhemoglobin 98.2 H ABG Sodium 123.4 L ABG Potassium ABG Chloride 97.0 L ABG Glucose 144 H Carboxyhemoglobin Sodium Potassium Chloride Carbon Dioxide BUN Creatinine Glucose POC Glucose 140 H 134 H Lactic Acid Calcium Ionized Calcium Phosphorus Magnesium AST Alkaline Phosphatase Total Protein Albumin Triglycerides Arterial Blood Glucose 144 H Arterial Blood Ionized Calcium 3.4 L Urine Creatinine Crossmatch 12/29/20 12/29/20 12/29/20 05:20 05:20 06:01 WBC 21.0 H RBC 2.89 L Hgb 8.1 L Hct 25.5 L MCV MCHC RDW 16.1 H Plt Count 124 L Seg Neuts % (Manual) Lymphocytes % (Manual) Seg Neutrophils # Man Lymphocytes # (Manual) Monocytes # (Manual) PT INR APTT Fibrinogen ABG pH POC ABG pCO2 POC ABG pO2 ABG pO2 ABG Base Excess ABG Hemoglobin ABG Oxyhemoglobin ABG Sodium ABG Potassium ABG Chloride ABG Glucose Carboxyhemoglobin Sodium 131 L Potassium Chloride 93.4 L Carbon Dioxide BUN 79 H Creatinine 4.7 H Glucose 122 H POC Glucose 108 H Lactic Acid Calcium 5.5 L* Ionized Calcium Phosphorus 5.70 H Magnesium 1.60 L AST Alkaline Phosphatase Total Protein Albumin Triglycerides Arterial Blood Glucose Arterial Blood Ionized Calcium Urine Creatinine Crossmatch 12/29/20 12/29/20 12/29/20 10:04 11:27 17:31 WBC RBC Hgb Hct MCV MCHC RDW Plt Count Seg Neuts % (Manual) Lymphocytes % (Manual) Seg Neutrophils # Man Lymphocytes # (Manual) Monocytes # (Manual) PT INR APTT Fibrinogen ABG pH POC ABG pCO2 POC ABG pO2 ABG pO2 ABG Base Excess ABG Hemoglobin ABG Oxyhemoglobin ABG Sodium ABG Potassium ABG Chloride ABG Glucose Carboxyhemoglobin Sodium Potassium Chloride Carbon Dioxide BUN Creatinine Glucose POC Glucose 107 H 112 H 110 H Lactic Acid Calcium Ionized Calcium Phosphorus Magnesium AST Alkaline Phosphatase Total Protein Albumin Triglycerides Arterial Blood Glucose Arterial Blood Ionized Calcium Urine Creatinine Crossmatch 12/30/20 12/30/20 12/30/20 03:31 08:06 17:39 WBC RBC Hgb Hct MCV MCHC RDW Plt Count Seg Neuts % (Manual) Lymphocytes % (Manual) Seg Neutrophils # Man Lymphocytes # (Manual) Monocytes # (Manual) PT INR APTT Fibrinogen ABG pH 7.261 L POC ABG pCO2 POC ABG pO2 123.1 H ABG pO2 ABG Base Excess ABG Hemoglobin 8.7 L ABG Oxyhemoglobin ABG Sodium 123.2 L ABG Potassium ABG Chloride 96.0 L ABG Glucose 112 H Carboxyhemoglobin Sodium 128 L Potassium Chloride 90.7 L Carbon Dioxide 21 L BUN 86 H Creatinine 4.9 H Glucose 107 H POC Glucose 134 H Lactic Acid Calcium 6.2 L Ionized Calcium Phosphorus 5.30 H Magnesium 1.50 L AST Alkaline Phosphatase Total Protein Albumin Triglycerides Arterial Blood Glucose 112 H Arterial Blood Ionized Calcium 3.2 L Urine Creatinine Crossmatch 12/30/20 12/31/20 12/31/20 22:45 02:14 04:40 WBC RBC Hgb Hct MCV MCHC RDW Plt Count Seg Neuts % (Manual) Lymphocytes % (Manual) Seg Neutrophils # Man Lymphocytes # (Manual) Monocytes # (Manual) PT INR APTT Fibrinogen ABG pH 7.267 L POC ABG pCO2 POC ABG pO2 ABG pO2 ABG Base Excess ABG Hemoglobin 8.0 L ABG Oxyhemoglobin 93.7 L ABG Sodium ABG Potassium ABG Chloride 95.0 L ABG Glucose 108 H Carboxyhemoglobin 1.7 H Sodium 126 L Potassium Chloride 90.3 L Carbon Dioxide 20 L BUN 70 H Creatinine 4.3 H Glucose 209 H POC Glucose 109 H Lactic Acid Calcium 6.6 L Ionized Calcium Phosphorus 4.70 H Magnesium 1.60 L AST Alkaline Phosphatase Total Protein Albumin Triglycerides 157 H Arterial Blood Glucose 108 H Arterial Blood Ionized Calcium 3.7 L Urine Creatinine Crossmatch 12/31/20 12/31/20 01/01/21 16:23 23:21 04:00 WBC 18.0 H RBC 2.75 L Hgb 7.7 L Hct 23.9 L MCV MCHC RDW 15.6 H Plt Count Seg Neuts % (Manual) 91.0 H Lymphocytes % (Manual) 6.0 L Seg Neutrophils # Man 16.4 H Lymphocytes # (Manual) 1.1 L Monocytes # (Manual) PT INR APTT Fibrinogen ABG pH 7.264 L POC ABG pCO2 POC ABG pO2 74.8 L ABG pO2 ABG Base Excess ABG Hemoglobin 7.1 L ABG Oxyhemoglobin 92.1 L ABG Sodium 124.9 L ABG Potassium ABG Chloride 95.0 L ABG Glucose 111 H Carboxyhemoglobin 1.7 H Sodium Potassium Chloride Carbon Dioxide BUN Creatinine Glucose POC Glucose 125 H Lactic Acid Calcium Ionized Calcium Phosphorus Magnesium AST Alkaline Phosphatase Total Protein Albumin Triglycerides Arterial Blood Glucose 111 H Arterial Blood Ionized Calcium 4.0 L Urine Creatinine Crossmatch 01/01/21 01/01/21 01/01/21 05:50 13:41 15:55 WBC RBC Hgb Hct MCV MCHC RDW Plt Count Seg Neuts % (Manual) Lymphocytes % (Manual) Seg Neutrophils # Man Lymphocytes # (Manual) Monocytes # (Manual) PT INR APTT Fibrinogen ABG pH 7.148 L 7.207 L POC ABG pCO2 53.1 H POC ABG pO2 57.3 L 138.4 H ABG pO2 ABG Base Excess ABG Hemoglobin 9.0 L 8.3 L ABG Oxyhemoglobin 83.2 L ABG Sodium 126.2 L 124.5 L ABG Potassium ABG Chloride 95.0 L 95.0 L ABG Glucose 96 H 120 H Carboxyhemoglobin Sodium 131 L Potassium Chloride 93.3 L Carbon Dioxide 21 L BUN 67 H Creatinine 4.2 H Glucose POC Glucose Lactic Acid Calcium 7.1 L Ionized Calcium Phosphorus Magnesium AST 60 H Alkaline Phosphatase Total Protein 4.8 L Albumin 1.4 L Triglycerides Arterial Blood Glucose 96 H 120 H Arterial Blood Ionized Calcium 4.1 L 3.9 L Urine Creatinine Crossmatch 01/01/21 01/01/21 01/02/21 17:09 23:24 03:47 WBC RBC Hgb Hct MCV MCHC RDW Plt Count Seg Neuts % (Manual) Lymphocytes % (Manual) Seg Neutrophils # Man Lymphocytes # (Manual) Monocytes # (Manual) PT INR APTT Fibrinogen ABG pH 7.276 L POC ABG pCO2 POC ABG pO2 173.6 H ABG pO2 ABG Base Excess ABG Hemoglobin 7 L ABG Oxyhemoglobin ABG Sodium 122.4 L ABG Potassium ABG Chloride 94.0 L ABG Glucose 118 H Carboxyhemoglobin Sodium Potassium Chloride Carbon Dioxide BUN Creatinine Glucose POC Glucose 124 H 119 H Lactic Acid Calcium Ionized Calcium Phosphorus Magnesium AST Alkaline Phosphatase Total Protein Albumin Triglycerides Arterial Blood Glucose 118 H Arterial Blood Ionized Calcium 4.0 L Urine Creatinine Crossmatch 01/02/21 01/02/21 01/02/21 05:33 08:00 08:00 WBC 19.7 H RBC 2.53 L Hgb 7.1 L Hct 22.0 L MCV MCHC RDW 16.4 H Plt Count Seg Neuts % (Manual) Lymphocytes % (Manual) Seg Neutrophils # Man Lymphocytes # (Manual) Monocytes # (Manual) PT INR APTT Fibrinogen ABG pH POC ABG pCO2 POC ABG pO2 ABG pO2 ABG Base Excess ABG Hemoglobin ABG Oxyhemoglobin ABG Sodium ABG Potassium ABG Chloride ABG Glucose Carboxyhemoglobin Sodium 127 L Potassium Chloride 89.3 L Carbon Dioxide 19 L BUN 82 H Creatinine 5.0 H Glucose 103 H POC Glucose 107 H Lactic Acid Calcium 7.8 L Ionized Calcium Phosphorus 6.40 H Magnesium AST 47 H Alkaline Phosphatase Total Protein 5.0 L Albumin 1.6 L Triglycerides Arterial Blood Glucose Arterial Blood Ionized Calcium Urine Creatinine Crossmatch 01/02/21 01/03/21 01/03/21 17:25 07:56 09:47 WBC 17.7 H RBC 2.19 L Hgb 6.2 L Hct 18.5 L* MCV MCHC RDW 16.1 H Plt Count Seg Neuts % (Manual) Lymphocytes % (Manual) Seg Neutrophils # Man Lymphocytes # (Manual) Monocytes # (Manual) PT INR APTT Fibrinogen ABG pH POC ABG pCO2 POC ABG pO2 ABG pO2 ABG Base Excess ABG Hemoglobin ABG Oxyhemoglobin ABG Sodium ABG Potassium ABG Chloride ABG Glucose Carboxyhemoglobin Sodium 130 L Potassium 3.5 L Chloride 90.3 L Carbon Dioxide BUN 68 H Creatinine 3.9 H Glucose 103 H POC Glucose 116 H Lactic Acid Calcium 8.0 L Ionized Calcium Phosphorus 4.80 H D Magnesium AST Alkaline Phosphatase Total Protein Albumin Triglycerides Arterial Blood Glucose Arterial Blood Ionized Calcium Urine Creatinine Crossmatch 01/03/21 01/03/21 01/04/21 11:00 19:00 03:12 WBC 17.0 H RBC 2.51 L Hgb 7.1 L Hct 21.5 L MCV MCHC RDW 16.6 H Plt Count Seg Neuts % (Manual) Lymphocytes % (Manual) Seg Neutrophils # Man Lymphocytes # (Manual) Monocytes # (Manual) PT INR APTT Fibrinogen ABG pH 7.463 H POC ABG pCO2 POC ABG pO2 72.2 L ABG pO2 ABG Base Excess ABG Hemoglobin 6.2 L ABG Oxyhemoglobin 91.8 L ABG Sodium 128.4 L ABG Potassium 3.3 L ABG Chloride 96.0 L ABG Glucose 112 H Carboxyhemoglobin Sodium Potassium Chloride Carbon Dioxide BUN Creatinine Glucose POC Glucose Lactic Acid Calcium Ionized Calcium Phosphorus Magnesium AST Alkaline Phosphatase Total Protein Albumin Triglycerides Arterial Blood Glucose 112 H Arterial Blood Ionized Calcium 4.3 L Urine Creatinine Crossmatch See Detail 01/04/21 01/04/21 01/04/21 05:16 06:20 06:20 WBC 18.5 H RBC 2.53 L Hgb 7.4 L Hct 21.9 L MCV MCHC RDW 15.8 H Plt Count Seg Neuts % (Manual) Lymphocytes % (Manual) Seg Neutrophils # Man Lymphocytes # (Manual) Monocytes # (Manual) PT INR APTT Fibrinogen ABG pH POC ABG pCO2 POC ABG pO2 ABG pO2 ABG Base Excess ABG Hemoglobin ABG Oxyhemoglobin ABG Sodium ABG Potassium ABG Chloride ABG Glucose Carboxyhemoglobin Sodium 135 L Potassium Chloride 95.2 L Carbon Dioxide BUN 56 H Creatinine 3.2 H Glucose 109 H POC Glucose 123 H Lactic Acid Calcium 7.6 L Ionized Calcium Phosphorus Magnesium AST Alkaline Phosphatase Total Protein Albumin Triglycerides Arterial Blood Glucose Arterial Blood Ionized Calcium Urine Creatinine Crossmatch 01/05/21 01/05/21 01/05/21 03:50 07:22 07:22 WBC 23.8 H RBC 2.93 L Hgb 8.2 L Hct 25.1 L MCV MCHC RDW 16.5 H Plt Count Seg Neuts % (Manual) Lymphocytes % (Manual) Seg Neutrophils # Man Lymphocytes # (Manual) Monocytes # (Manual) PT INR APTT Fibrinogen ABG pH POC ABG pCO2 POC ABG pO2 ABG pO2 136.8 H ABG Base Excess -2.3 L ABG Hemoglobin 6.9 L ABG Oxyhemoglobin ABG Sodium ABG Potassium ABG Chloride ABG Glucose Carboxyhemoglobin Sodium 134 L Potassium Chloride 93.3 L Carbon Dioxide BUN 77 H Creatinine 4.2 H Glucose 105 H POC Glucose Lactic Acid Calcium Ionized Calcium Phosphorus 4.90 H D Magnesium AST Alkaline Phosphatase Total Protein Albumin Triglycerides Arterial Blood Glucose Arterial Blood Ionized Calcium Urine Creatinine Crossmatch 01/05/21 01/05/21 01/05/21 11:02 14:06 15:37 WBC RBC Hgb Hct MCV MCHC RDW Plt Count Seg Neuts % (Manual) Lymphocytes % (Manual) Seg Neutrophils # Man Lymphocytes # (Manual) Monocytes # (Manual) PT INR APTT Fibrinogen ABG pH POC ABG pCO2 POC ABG pO2 332.3 H ABG pO2 ABG Base Excess ABG Hemoglobin 7.7 L ABG Oxyhemoglobin 98.7 H ABG Sodium 131.0 L ABG Potassium 3.3 L ABG Chloride 97.0 L ABG Glucose 118 H Carboxyhemoglobin Sodium Potassium Chloride Carbon Dioxide BUN Creatinine Glucose POC Glucose 118 H 111 H Lactic Acid Calcium Ionized Calcium Phosphorus Magnesium AST Alkaline Phosphatase Total Protein Albumin Triglycerides Arterial Blood Glucose 118 H Arterial Blood Ionized Calcium 4.4 L Urine Creatinine Crossmatch 01/05/21 01/06/21 01/06/21 23:18 04:00 04:20 WBC RBC Hgb Hct MCV MCHC RDW Plt Count Seg Neuts % (Manual) Lymphocytes % (Manual) Seg Neutrophils # Man Lymphocytes # (Manual) Monocytes # (Manual) PT INR APTT Fibrinogen ABG pH POC ABG pCO2 POC ABG pO2 230.5 H ABG pO2 ABG Base Excess ABG Hemoglobin 7.9 L ABG Oxyhemoglobin 98.5 H ABG Sodium 129.4 L ABG Potassium ABG Chloride 97.0 L ABG Glucose 117 H Carboxyhemoglobin Sodium 133 L Potassium Chloride 94.4 L Carbon Dioxide BUN 62 H Creatinine 3.6 H Glucose 110 H POC Glucose 110 H Lactic Acid Calcium 7.8 L Ionized Calcium Phosphorus Magnesium AST Alkaline Phosphatase Total Protein Albumin Triglycerides Arterial Blood Glucose 117 H Arterial Blood Ionized Calcium 4.5 L Urine Creatinine Crossmatch 01/06/21 01/06/21 01/06/21 05:28 09:00 11:00 WBC 15.2 H RBC 2.18 L Hgb 6.5 L Hct 21.8 L MCV 100 H MCHC 30 L RDW 18.5 H Plt Count Seg Neuts % (Manual) Lymphocytes % (Manual) Seg Neutrophils # Man Lymphocytes # (Manual) Monocytes # (Manual) PT INR APTT Fibrinogen ABG pH POC ABG pCO2 POC ABG pO2 ABG pO2 ABG Base Excess ABG Hemoglobin ABG Oxyhemoglobin ABG Sodium ABG Potassium ABG Chloride ABG Glucose Carboxyhemoglobin Sodium Potassium Chloride Carbon Dioxide BUN Creatinine Glucose POC Glucose 109 H Lactic Acid Calcium Ionized Calcium Phosphorus Magnesium AST Alkaline Phosphatase Total Protein Albumin Triglycerides Arterial Blood Glucose Arterial Blood Ionized Calcium Urine Creatinine Crossmatch See Detail 01/06/21 01/06/21 01/07/21 11:32 23:44 03:10 WBC 15.3 H RBC 2.30 L Hgb 6.7 L Hct 20.1 L MCV MCHC RDW 16.6 H Plt Count Seg Neuts % (Manual) Lymphocytes % (Manual) Seg Neutrophils # Man Lymphocytes # (Manual) Monocytes # (Manual) PT INR APTT Fibrinogen ABG pH POC ABG pCO2 POC ABG pO2 ABG pO2 ABG Base Excess ABG Hemoglobin ABG Oxyhemoglobin ABG Sodium ABG Potassium ABG Chloride ABG Glucose Carboxyhemoglobin Sodium Potassium Chloride Carbon Dioxide BUN Creatinine Glucose POC Glucose 113 H 118 H Lactic Acid Calcium Ionized Calcium Phosphorus Magnesium AST Alkaline Phosphatase Total Protein Albumin Triglycerides Arterial Blood Glucose Arterial Blood Ionized Calcium Urine Creatinine Crossmatch 01/07/21 01/07/21 01/07/21 03:10 04:17 05:06 WBC RBC Hgb Hct MCV MCHC RDW Plt Count Seg Neuts % (Manual) Lymphocytes % (Manual) Seg Neutrophils # Man Lymphocytes # (Manual) Monocytes # (Manual) PT INR APTT Fibrinogen ABG pH 7.272 L POC ABG pCO2 50.1 H POC ABG pO2 ABG pO2 ABG Base Excess ABG Hemoglobin 8.4 L ABG Oxyhemoglobin ABG Sodium 128.6 L ABG Potassium ABG Chloride 95.0 L ABG Glucose 109 H Carboxyhemoglobin Sodium 133 L Potassium Chloride 93.6 L Carbon Dioxide BUN 85 H Creatinine 3.9 H Glucose 112 H POC Glucose 106 H Lactic Acid Calcium Ionized Calcium Phosphorus 4.70 H D Magnesium AST Alkaline Phosphatase Total Protein Albumin Triglycerides Arterial Blood Glucose 109 H Arterial Blood Ionized Calcium Urine Creatinine Crossmatch 01/07/21 01/07/21 01/07/21 14:05 16:00 23:25 WBC RBC Hgb 8.1 L Hct 24.2 L MCV MCHC RDW Plt Count Seg Neuts % (Manual) Lymphocytes % (Manual) Seg Neutrophils # Man Lymphocytes # (Manual) Monocytes # (Manual) PT INR APTT Fibrinogen ABG pH POC ABG pCO2 POC ABG pO2 ABG pO2 ABG Base Excess ABG Hemoglobin 7.2 L ABG Oxyhemoglobin ABG Sodium 127.3 L ABG Potassium ABG Chloride 96.0 L ABG Glucose 98 H Carboxyhemoglobin Sodium Potassium Chloride Carbon Dioxide BUN Creatinine Glucose POC Glucose 106 H Lactic Acid Calcium Ionized Calcium Phosphorus Magnesium AST Alkaline Phosphatase Total Protein Albumin Triglycerides Arterial Blood Glucose 98 H Arterial Blood Ionized Calcium Urine Creatinine Crossmatch 01/08/21 01/08/21 01/08/21 03:22 05:30 23:22 WBC RBC Hgb Hct MCV MCHC RDW Plt Count Seg Neuts % (Manual) Lymphocytes % (Manual) Seg Neutrophils # Man Lymphocytes # (Manual) Monocytes # (Manual) PT INR APTT Fibrinogen ABG pH POC ABG pCO2 POC ABG pO2 71.3 L ABG pO2 ABG Base Excess ABG Hemoglobin 8.7 L ABG Oxyhemoglobin 92.2 L ABG Sodium 125.9 L ABG Potassium ABG Chloride 96.0 L ABG Glucose 124 H Carboxyhemoglobin Sodium Potassium Chloride Carbon Dioxide BUN Creatinine Glucose POC Glucose 118 H 110 H Lactic Acid Calcium Ionized Calcium Phosphorus Magnesium AST Alkaline Phosphatase Total Protein Albumin Triglycerides Arterial Blood Glucose 124 H Arterial Blood Ionized Calcium Urine Creatinine Crossmatch 01/08/21 01/08/21 01/09/21 Unknown Unknown 08:45 WBC 15.2 H RBC 2.62 L Hgb 7.6 L Hct 22.7 L MCV MCHC RDW 16.7 H Plt Count Seg Neuts % (Manual) 95.0 H Lymphocytes % (Manual) 3.0 L Seg Neutrophils # Man 14.4 H Lymphocytes # (Manual) 0.5 L Monocytes # (Manual) PT INR APTT Fibrinogen ABG pH POC ABG pCO2 POC ABG pO2 ABG pO2 ABG Base Excess ABG Hemoglobin ABG Oxyhemoglobin ABG Sodium ABG Potassium ABG Chloride ABG Glucose Carboxyhemoglobin Sodium 129 L 129 L Potassium Chloride 91.2 L 92.7 L Carbon Dioxide 21 L 19 L BUN 91 H 105 H Creatinine 4.0 H 4.4 H Glucose 115 H 107 H POC Glucose Lactic Acid Calcium Ionized Calcium Phosphorus 5.00 H Magnesium AST Alkaline Phosphatase Total Protein 5.3 L Albumin 1.6 L Triglycerides 166 H Arterial Blood Glucose Arterial Blood Ionized Calcium Urine Creatinine Crossmatch 01/09/21 01/09/21 01/10/21 10:10 23:51 04:00 WBC 14.1 H RBC 2.50 L Hgb 7.2 L Hct 21.6 L MCV MCHC RDW 16.5 H Plt Count Seg Neuts % (Manual) 92.0 H Lymphocytes % (Manual) 2.0 L Seg Neutrophils # Man 13.0 H Lymphocytes # (Manual) 0.3 L Monocytes # (Manual) PT INR APTT Fibrinogen ABG pH 7.273 L POC ABG pCO2 POC ABG pO2 ABG pO2 ABG Base Excess ABG Hemoglobin 8.7 L ABG Oxyhemoglobin ABG Sodium 126.2 L ABG Potassium 4.8 H ABG Chloride 96.0 L ABG Glucose 160 H Carboxyhemoglobin Sodium Potassium Chloride Carbon Dioxide BUN Creatinine Glucose POC Glucose 154 H Lactic Acid Calcium Ionized Calcium Phosphorus Magnesium AST Alkaline Phosphatase Total Protein Albumin Triglycerides Arterial Blood Glucose 160 H Arterial Blood Ionized Calcium Urine Creatinine Crossmatch 01/10/21 01/10/21 01/10/21 04:01 04:01 04:01 WBC 12.6 H RBC 2.89 L Hgb 8.1 L Hct 24.9 L MCV MCHC RDW 16.6 H Plt Count Seg Neuts % (Manual) 95.0 H Lymphocytes % (Manual) 3.0 L Seg Neutrophils # Man 12.0 H Lymphocytes # (Manual) 0.4 L Monocytes # (Manual) PT 15.4 H INR 1.17 H APTT 40.2 H Fibrinogen 817 H ABG pH POC ABG pCO2 POC ABG pO2 ABG pO2 ABG Base Excess ABG Hemoglobin ABG Oxyhemoglobin ABG Sodium ABG Potassium ABG Chloride ABG Glucose Carboxyhemoglobin Sodium 128 L Potassium Chloride 90.4 L Carbon Dioxide 19 L BUN 113 H Creatinine 4.5 H Glucose 162 H POC Glucose Lactic Acid Calcium Ionized Calcium Phosphorus 5.70 H Magnesium AST Alkaline Phosphatase Total Protein 6.2 L Albumin 2.1 L Triglycerides Arterial Blood Glucose Arterial Blood Ionized Calcium Urine Creatinine Crossmatch 01/10/21 01/10/21 01/11/21 05:31 11:45 04:00 WBC RBC Hgb Hct MCV MCHC RDW Plt Count Seg Neuts % (Manual) Lymphocytes % (Manual) Seg Neutrophils # Man Lymphocytes # (Manual) Monocytes # (Manual) PT INR APTT Fibrinogen ABG pH 7.311 L POC ABG pCO2 49.2 H POC ABG pO2 ABG pO2 ABG Base Excess ABG Hemoglobin 9.4 L ABG Oxyhemoglobin ABG Sodium 130.3 L ABG Potassium ABG Chloride 96.0 L ABG Glucose 104 H Carboxyhemoglobin Sodium Potassium Chloride Carbon Dioxide BUN Creatinine Glucose POC Glucose 150 H 145 H Lactic Acid Calcium Ionized Calcium Phosphorus Magnesium AST Alkaline Phosphatase Total Protein Albumin Triglycerides Arterial Blood Glucose 104 H Arterial Blood Ionized Calcium Urine Creatinine Crossmatch 01/11/21 04:45 WBC RBC Hgb Hct MCV MCHC RDW Plt Count Seg Neuts % (Manual) Lymphocytes % (Manual) Seg Neutrophils # Man Lymphocytes # (Manual) Monocytes # (Manual) PT INR APTT Fibrinogen ABG pH POC ABG pCO2 POC ABG pO2 ABG pO2 ABG Base Excess ABG Hemoglobin ABG Oxyhemoglobin ABG Sodium ABG Potassium ABG Chloride ABG Glucose Carboxyhemoglobin Sodium 134 L Potassium 3.5 L D Chloride 95.5 L Carbon Dioxide BUN 88 H Creatinine 3.5 H Glucose 103 H POC Glucose Lactic Acid Calcium Ionized Calcium Phosphorus Magnesium AST Alkaline Phosphatase Total Protein Albumin Triglycerides Arterial Blood Glucose Arterial Blood Ionized Calcium Urine Creatinine Crossmatch
[2021-01-11] MEDS: FAMOTIDINE 20 MG/2 ML INJ IV SCH (10:09)
--- NOTE | 2021-01-11 12:14 | Progress Note ---
Assessment and Plan Cultures: 12/20/2020 blood culture: No growth 12/20/2020 urine culture: Usual skin giorgio 12/20/2020 tracheal aspirate culture: Mucor A/P: 60-year-old male with obesity, hypertension, tobacco abuse, coronary artery d isease, admitted to the hospital on 12/20/2020 with: #Septic shock: Resolved. No fever. Secondary to intra-abdominal source, peritonitis. Patient with necrotic bowel secondary to incarcerated ventral hernia. Status post exploratory laparotomy, extensive adhesiolysis, small bowel resection and peritoneal lavage along with ABThera VAC placement on 12/20/2020, replacement 12/29/2020. Off pressors. Last surgery abdomen closure with mesh 01/02/2021. Repeat CT 01/09/21 with large organized but bland appearing reactive fluid collection in anterior abdomen - seroma v/s hematoma. #JONI: Renally dose antibiotics. On hemodialysis. #Morbid obesity #Mucor in tracheal aspirate is a colonizer of the tube. Minimal immunosuppression with diabetes. Recs: -continue off abx Lissette Rizzo MD, FACP [facility] O: [phone] F: [phone] Subjective Date of service: 01/11/21 Principal diagnosis: SBO and necrosis of large part of small intestine Interval history: Afebrile. Remains on the vent. Remains off pressors. Objective - Exam Narrative Exam: Physical Exam: Constitutional: sedated, intubated, on the vent Head, Ears, Nose: Normocephalic, atraumatic. External ears, nose normal Eyes: Conjunctivae/corneas clear. No icterus. No ptosis. Neck: intubated Oral: intubated Cardiovascular: S1, S2 + Respiratory: AE fair bilaterally and equal GI: midline dressing + bowel sounds + Musculoskeletal: scrotal edema Skin: No rash or abscess Hem/Lymphatic: No palpable cervical or supraclavicular nodes. No lymphangitis Psych: no agitation Neurological: sedated, intubated, on the vent, exam limited - Constitutional Vitals: Vital Signs Temp Pulse Resp BP Pulse Ox 98.5 F 113 H 27 H 178/92 99 01/11/21 12:07 01/11/21 12:00 01/11/21 09:00 01/11/21 12:00 01/11/21 12:00 Temperature -Last 24 Hours Temperature 98.5 F Temperature 97.8 F Temperature 97.9 F Temperature 97.4 F Temperature 97.9 F Temperature 97.9 F Temperature 97.4 F - Labs CBC & Chem 7: 01/10/21 04:01 01/11/21 04:45 Labs: Abnormal lab results 01/10/21 01/11/21 01/11/21 Range/Units 11:45 04:00 04:45 ABG pH 7.311 L (7.320-7.450) POC ABG pCO2 49.2 H (32.0-48.0) mmHg ABG Hemoglobin 9.4 L (12.0-17.5) ABG Sodium 130.3 L (136.0-145.0) mmol/L ABG Chloride 96.0 L (98-107) mmol/L ABG Glucose 104 H (65-95) mg/dL Sodium 134 L (137-145) mmol/L Potassium 3.5 L D (3.6-5.0) mmol/L Chloride 95.5 L (98-107) mmol/L BUN 88 H (9-20) mg/dL Creatinine 3.5 H (0.8-1.3) mg/dL Glucose 103 H (75-100) mg/dL POC Glucose 145 H (70-105) mg/dL Arterial Blood Glucose 104 H (65-95) mg/dL
--- NOTE | 2021-01-11 13:58 | Progress Note ---
Assessment and Plan Assessment and plan: 60-year-old male with obesity, hypertension, nicotine dependence, PVD s/p stent placement on dual antiplatelet therapy, hyperlipidemia, OA, GERD, ventral hernia and small bowel obstruction who was admitted with small bowel obstruction and peritonitis Septic Shock, POA (presented with leukocytosis, tachycardia, tachypnea,febrile and evidence of peritonitis) HPI -12/20 CT abdomen/pelvis showed high-grade small bowel obstruction related to severe complex ventral abdominal wall hernias, progressed in appearance from prior exam from 09/12/2020 without evidence of pneumonitis or pneumoperitoneum, patchy bibasilar airspace disease concern for atypical infectious process/pneumonitis --s/p ex lap, extensive lysis of adhesions, small bowel resection (removal of 70 cm necrotic small bowel segment), peritoneal lavage and ABThera abdominal wound VAC placement -12/23 s/p abdominal exploration, small bowel resection, peritoneal lavage, ABThera wound VAC placement -12/26 s/p ex lap, small bowel resection, peritoneal lavage, ABThera wound VAC placement -12/27 s/p ex lap, extensive lysis of adhesions, small bowel resection (removal of 70 cm necrotic small bowel segment), peritoneal lavage and ABThera abdominal wound VAC placement. -12/29 s/p ex lap, small bowel resection, small bowel anastomosis and ABThera wound VAC placement -01/01 s/p myocutaneous flap creation, abdominal wall component separation and placement of phasix mesh with surgery yesterday where his abdomen was closed and 2 LAURA drains were placed on either side of his midline between fascia and SQ tissue. -12/30 initiated on HD by nephro -01/03 RBC x2 -01/06 RBC -01/07 RBC -01/09 stool pos for guiac; CT Chest/abd/pelvis -01/10: Patient this morning with elevated BP, likely secondary to pain vs ?Hx of Htn, Hydralazine PRN ordered and added to the patient, will monitor. Continue pain control. Wound care management and vent weaning when ok with surgery and Tapper Balance Wheel Screw Hole Problem List COVID-19 PUI, ruled out Small bowel obstruction with peritonitis Ventral hernia s/p repair Leukocytosis Anemia Hyponatremia Hypochloremia Acute Kidney Injury, on HD Obesity Hypertension Nicotine dependence CAD s/p stent placement Hyperlipidemia Osteoarthritis GERD medical non adherence Systems Exam NEURO- uremic; sedated; generalized weakness; post op pain; high risk delirium opens eyes; nods appropriately; following commands PERRL generalized weakness fentanyl weaned off overnight now on dex and propofol - low doses dex does make pt bradycardic RASS goal neg 4 PRN tylenol for pain NOK mother - pt's brother was updated on plan of care case management following for d/c planning CV- nap SB-SR As pt is awake more his bp has increased PRN hydral RESP- post op resp failure remains ventilated on CMV [id number] daily ABG wean as tolerated to PS trails intubated 12/20 if fails to extubate soon - likely trach ABG daily and PRN GI- sp SBO with exlap repair; protein isha malnutrition TF at 10- tolerating well TPN nutrition following LAURA x 2/abd drains with minimal outpput continue to trend output Gen surg following CT chest abd and pelvis today with PO and IV contrast-01/09 see report stooling CO daily dulclox reglan daily pepcid scheduled - JONI requiring HD; hyponatremia; hyperK; uremia haley strict I/O trending electrolytes nephrology following HD usually M/W/F HD today - sp contrast -cleaned no UF- tolerated well kidney function seems to be returning pt was net neg 1.7L over the last 24 hurs- and he made 2.8L of urine Na 128 - continue to monitor; post HD today AM labs ordered HEME- post op anemia SQH VTE RBC x 2 on 01/03; RBC x 1 on 01/06 and RBC x 1 on 01/07 -- see hgb trend; not appropriate response Hgb stable today at 8.2 Gen surg has discussed with IR- will monitor for now- if there is a dec in Hgb will consider CTA abd/pelvis and IR intervention coags normal CBC in AM ID- leukocytosis ID following no antibiotics at this time trend WBC and temp curve consider rotation of vascath if concern for infection 12/21 covid neg 12/21 Hep. neg wound care per staff nurse midwife ENDO- DM2; hyperglycemia; obese SSI Q6H avoid hypoglycemia Disposition Plan: LTAC Total Time Spent with Patient (Minutes): 60 The high probability of a clinically significant, sudden or life threatening deterioration of the [multiple] system(s) required my full and direct attention, intervention and personal management. The aggregate critical care time was [60] minutes. This time is in addition to time spent performing reported procedures but includes the following: [x] Data Review and interpretation [x] Patient assessment and monitoring of vital signs [x] Documentation [x] Medication orders and management History Interval history: Patient seen and examined this am, noted to have elevated Bp, improved with Hydralazine, following commands although lethargic., Hospitalist Physical - Physical exam Narrative exam: General appearance: Present: mild distress, well-nourished, obese, other (sedated) and intubated - EENT Eyes: Present: PERRL, EOM intact ENT: hearing intact - Neck Neck: Present: supple, normal ROM - Respiratory Respiratory: bilateral: diminished - Cardiovascular Rhythm: regular Heart Sounds: Present: S1 & S2 - Extremities Extremity abnormal: edema Peripheral Pulses: within normal limits - Abdominal General gastrointestinal: soft, tender- Abdominal Binder and midline dressing with drainage tubes noted. - Integumentary Integumentary: Present: clear, warm - Psychiatric Psychiatric: cooperative - Allied Health Allied health notes reviewed: nursing, PT, ST, OT, RT, social work, case management - Constitutional Vitals: Temp Pulse Resp BP Pulse Ox 98.5 F 117 H 23 188/90 98 01/11/21 12:07 01/11/21 13:15 01/11/21 13:15 01/11/21 13:15 01/11/21 13:15 General appearance: Present: mild distress, well-nourished, obese, other (sedated) HEART Score - HEART Score EKG: Normal Age: < 45 Risk factors: No known risk factors Troponin: Troponin T < 0.010 ng/mL (0.00-0.029) 12/20/20 13:58 Troponin: < normal limit - Critical Actions Critical Actions: 0-3 pts:0.9-1.7%risk of adverse cardiac event.Candidate for discharge Results - Labs CBC & Chem 7: 01/10/21 04:01 01/11/21 04:45 Labs: Laboratory Last Values WBC 12.6 K/mm3 (4.5-11.0) H 01/10/21 04:01 RBC 2.89 M/mm3 (3.65-5.03) L 01/10/21 04:01 Hgb 8.1 gm/dl (11.8-15.2) L 01/10/21 04:01 Hct 24.9 % (35.5-45.6) L 01/10/21 04:01 MCV 86 fl (84-94) 01/10/21 04:01 MCH 28 pg (28-32) 01/10/21 04:01 MCHC 32 % (32-34) 01/10/21 04:01 RDW 16.6 % (13.2-15.2) H 01/10/21 04:01 Plt Count 257 K/mm3 (140-440) 01/10/21 04:01 Add Manual Diff Complete 01/10/21 04:01 Total Counted 100 01/10/21 04:01 Seg Neutrophils % Rodding Anode Worker 01/10/21 04:01 Seg Neuts % (Manual) 95.0 % (40.0-70.0) H 01/10/21 04:01 Band Neutrophils % 2.0 % 01/10/21 04:01 Lymphocytes % (Manual) 3.0 % (13.4-35.0) L 01/10/21 04:01 Monocytes % (Manual) 1.0 % (0.0-7.3) 01/09/21 10:10 Metamyelocytes % 1.0 % 01/09/21 10:10 Myelocytes % 1.0 % 01/09/21 10:10 Nucleated RBC % Not Reportable 01/10/21 04:01 Seg Neutrophils # Man 12.0 K/mm3 (1.8-7.7) H 01/10/21 04:01 Band Neutrophils # 0.3 K/mm3 01/10/21 04:01 Lymphocytes # (Manual) 0.4 K/mm3 (1.2-5.4) L 01/10/21 04:01 Abs React Lymphs (Man) 0.0 K/mm3 01/10/21 04:01 Monocytes # (Manual) 0.0 K/mm3 (0.0-0.8) 01/10/21 04:01 Eosinophils # (Manual) 0.0 K/mm3 (0.0-0.4) 01/10/21 04:01 Basophils # (Manual) 0.0 K/mm3 (0.0-0.1) 01/10/21 04:01 Metamyelocytes # 0.0 K/mm3 01/10/21 04:01 Myelocytes # 0.0 K/mm3 01/10/21 04:01 Promyelocytes # 0.0 K/mm3 01/10/21 04:01 Blast Cells # 0.0 K/mm3 01/10/21 04:01 WBC Morphology Not Reportable 01/10/21 04:01 Hypersegmented Neuts Not Reportable 01/10/21 04:01 Hyposegmented Neuts Not Reportable 01/10/21 04:01 Hypogranular Neuts Not Reportable 01/10/21 04:01 Smudge Cells Not Reportable 01/10/21 04:01 Toxic Granulation Not Reportable 01/10/21 04:01 Toxic Vacuolation Not Reportable 01/10/21 04:01 Dohle Bodies Not Reportable 01/10/21 04:01 Pelger-Huet Anomaly Not Reportable 01/10/21 04:01 Mirian Rods Not Reportable 01/10/21 04:01 Platelet Estimate Consistent w auto 01/10/21 04:01 Clumped Platelets Not Reportable 01/10/21 04:01 Plt Clumps, EDTA Not Reportable 01/10/21 04:01 Large Platelets Not Reportable 01/10/21 04:01 Giant Platelets Not Reportable 01/10/21 04:01 Platelet Satelliting Not Reportable 01/10/21 04:01 Plt Morphology Comment Not Reportable 01/10/21 04:01 RBC Morphology Not Reportable 01/10/21 04:01 Dimorphic RBCs Not Reportable 01/10/21 04:01 Polychromasia Not Reportable 01/10/21 04:01 Hypochromasia Few 01/10/21 04:01 Poikilocytosis Not Reportable 01/10/21 04:01 Anisocytosis Few 01/10/21 04:01 Microcytosis Few 01/10/21 04:01 Macrocytosis Not Reportable 01/10/21 04:01 Spherocytes Not Reportable 01/10/21 04:01 Pappenheimer Bodies Not Reportable 01/10/21 04:01 Sickle Cells Not Reportable 01/10/21 04:01 Target Cells Not Reportable 01/10/21 04:01 Tear Drop Cells Not Reportable 01/10/21 04:01 Ovalocytes Not Reportable 01/10/21 04:01 Helmet Cells Not Reportable 01/10/21 04:01 [place] Bodies Not Reportable 01/10/21 04:01 [place] Rings Not Reportable 01/10/21 04:01 [place] Cells Not Reportable 01/10/21 04:01 Bite Cells Not Reportable 01/10/21 04:01 Crenated Cell Not Reportable 01/10/21 04:01 Elliptocytes Not Reportable 01/10/21 04:01 Acanthocytes (Spur) Not Reportable 01/10/21 04:01 Rouleaux Not Reportable 01/10/21 04:01 Hemoglobin C Crystals Not Reportable 01/10/21 04:01 Schistocytes Not Reportable 01/10/21 04:01 Malaria parasites Not Reportable 01/10/21 04:01 Dylon Bodies Not Reportable 01/10/21 04:01 Hem Pathologist Commnt No 01/10/21 04:01 PT 15.4 Sec. (12.2-14.9) H 01/10/21 04:01 INR 1.17 (0.87-1.13) H 01/10/21 04:01 APTT 40.2 Sec. (24.2-36.6) H 01/10/21 04:01 Fibrinogen 817 mg/dl (211-480) H 01/10/21 04:01 ABG pH 7.311 (7.320-7.450) L 01/11/21 04:00 POC ABG pCO2 49.2 mmHg (32.0-48.0) H 01/11/21 04:00 ABG pCO2 37.9 mm Hg 01/05/21 03:50 POC ABG pO2 90.2 mmHg (83-108) 01/11/21 04:00 ABG pO2 136.8 mm Hg (80.0-90.0) H 01/05/21 03:50 POC ABG HCO3 24.3 01/11/21 04:00 ABG HCO3 22.4 mmol/L (20.0-26.0) 01/05/21 03:50 ABG O2 Saturation 96.2 (0-100) 01/11/21 04:00 ABG O2 Content 9.8 (0.0-44) 01/05/21 03:50 POC ABG Base Excess -2.1 01/11/21 04:00 ABG Base Excess -2.3 mmol/L (-2.0-3.0) L 01/05/21 03:50 ABG Hemoglobin 9.4 (12.0-17.5) L 01/11/21 04:00 ABG Oxyhemoglobin 95.2 (94-98) 01/11/21 04:00 ABG Carboxyhemoglobin 1.5 % (0.0-5.0) 01/05/21 03:50 ABG Methemoglobin 0.3 (0.0-1.5) 01/11/21 04:00 ABG Sodium 130.3 mmol/L (136.0-145.0) L 01/11/21 04:00 ABG Potassium 3.7 mmol/L (3.40-4.50) 01/11/21 04:00 ABG Chloride 96.0 mmol/L (98-107) L 01/11/21 04:00 ABG Glucose 104 mg/dL (65-95) H 01/11/21 04:00 Oxyhemoglobin 96.7 % (95.0-99.0) 01/05/21 03:50 Carboxyhemoglobin 0.7 (0.5-1.5) 01/11/21 04:00 FiO2 50 % 01/05/21 03:50 FiO2 % 35.0 01/11/21 04:00 Sodium 134 mmol/L (137-145) L 01/11/21 04:45 Potassium 3.5 mmol/L (3.6-5.0) L D 01/11/21 04:45 Chloride 95.5 mmol/L (98-107) L 01/11/21 04:45 Carbon Dioxide 23 mmol/L (22-30) 01/11/21 04:45 Anion Gap 19 mmol/L 01/11/21 04:45 BUN 88 mg/dL (9-20) H 01/11/21 04:45 Creatinine 3.5 mg/dL (0.8-1.3) H 01/11/21 04:45 Estimated GFR 18 ml/min 01/11/21 04:45 BUN/Creatinine Ratio 25 % 01/11/21 04:45 Glucose 103 mg/dL (75-100) H 01/11/21 04:45 POC Glucose 91 mg/dL (70-105) 01/11/21 11:42 Lactic Acid 1.70 mmol/L (0.7-2.0) 12/20/20 16:20 Calcium 8.8 mg/dL (8.4-10.2) 01/11/21 04:45 Ionized Calcium 3.3 mg/dL (4.8-5.6) L 12/27/20 14:40 Phosphorus 4.20 mg/dL (2.5-4.5) D 01/11/21 04:45 Magnesium 1.90 mg/dL (1.7-2.3) 01/11/21 04:45 Total Bilirubin 0.50 mg/dL (0.1-1.2) 01/10/21 04:01 AST 22 units/L (5-40) 01/10/21 04:01 ALT 19 units/L (7-56) 01/10/21 04:01 Alkaline Phosphatase 117 units/L (35-129) 01/10/21 04:01 Troponin T < 0.010 ng/mL (0.00-0.029) 12/20/20 13:58 Total Protein 6.2 g/dL (6.3-8.2) L 01/10/21 04:01 Albumin 2.1 g/dL (3.9-5) L 01/10/21 04:01 Albumin/Globulin Ratio 0.5 % 01/10/21 04:01 Triglycerides 166 mg/dL (2-149) H 01/08/21 Unknown Arterial Blood Glucose 104 mg/dL (65-95) H 01/11/21 04:00 Arterial Blood Ionized Calcium 4.9 mg/dL (4.6-5.3) 01/11/21 04:00 Urine Color Yellow (Yellow) 12/23/20 12:15 Urine Turbidity Cloudy (Clear) 12/23/20 12:15 Urine pH 5.0 (5.0-7.0) 12/23/20 12:15 Ur Specific [place] 1.019 (1.003-1.030) 12/23/20 12:15 Urine Protein <15 mg/dl mg/dL (Negative) 12/23/20 12:15 Urine Glucose (UA) Neg mg/dL (Negative) 12/23/20 12:15 Urine Ketones Neg mg/dL (Negative) 12/23/20 12:15 Urine Blood Sm (Negative) 12/23/20 12:15 Urine Nitrite Neg (Negative) 12/23/20 12:15 Urine Bilirubin Neg (Negative) 12/23/20 12:15 Urine Urobilinogen < 2.0 mg/dL (<2.0) 12/23/20 12:15 Ur Leukocyte Esterase Neg (Negative) 12/23/20 12:15 Urine WBC (Auto) 5.0 /HPF (0.0-6.0) 12/23/20 12:15 Urine RBC (Auto) 2.0 /HPF (0.0-6.0) 12/23/20 12:15 U Epithel Cells (Auto) < 1.0 /HPF (0-13.0) 12/20/20 Unknown Urine Bacteria (Auto) 1+ /HPF (Negative) 12/23/20 12:15 Triple Phos Crystals 2+ 12/23/20 12:15 Hyaline Casts 19 /LPF 12/20/20 Unknown Urine Mucus Few /HPF 12/23/20 12:15 Urine Eosinophils None seen (None Seen) 12/23/20 12:15 Urine Creatinine 78.1 mg/dL (0.1-20.0) H 12/23/20 12:15 Urine Sodium 13 mmol/L 12/23/20 12:15 Fraction Sodium Excret 0.2 12/23/20 12:15 Random Vancomycin 7.9 ug/mL (0-40.0) 12/23/20 12:15 Coronavirus (PCR) Negative (Negative) 12/21/20 Unknown Hepatitis A IgM Ab Non-reactive (NonReactive) 12/30/20 14:40 Hep Bs Antigen Non-reactive (Negative) 12/30/20 14:40 Hep B Core IgM Ab Non-reactive (NonReactive) 12/30/20 14:40 Hepatitis C Antibody Non-reactive (NonReactive) 12/30/20 14:40 Blood Type A NEGATIVE 01/06/21 11:00 Antibody Screen Negative 01/06/21 11:00 Crossmatch See Detail 01/06/21 11:00 Haley/IV: Voiding Method Indwelling Catheter Active Medications - Current Medications Current Medications: Generic Name Dose Route Start Last Admin Trade Name Freq PRN Reason Stop Dose Admin Acetaminophen 650 mg 12/21/20 11:51 12/25/20 20:35 Acetaminophen 650 Mg Rect Supp CO 650 mg Q4H PRN Administration TEMP >/=100.4 Lipase/Protease/Amylase 1 each 01/07/21 08:44 Lipase 10,500/Protease 25,000/Amylase 43,750 (Units) Dr Maharaj FEEDTUBE PRN PRN For Clogged Feeding Tube Bisacodyl 10 mg 12/30/20 11:00 01/11/21 10:09 Bisacodyl 10 Mg Rect Supp CO 10 mg QDAY ASCENCION Administration Dextrose 50 ml 12/24/20 10:49 Dextrose 50% In Water (25gm) 50 Ml Syringe IV Q30MIN PRN Hypoglycemia Protocol Famotidine 20 mg 12/26/20 10:00 01/11/21 10:09 Famotidine 20 Mg/2 Ml Inj IV 20 mg DAILY ASCENCION Administration Fentanyl 1 applic 01/11/21 14:00 Fentanyl 50 Mcg/Hr Patch 72hr TD Q3D ASCENCION Heparin Sodium (Porcine) 5,000 unit 01/06/21 14:00 01/11/21 13:50 Heparin 5,000 Unit/1 Ml Vial SUB-Q 5,000 unit Q8HR ASCENCION Administration Hydralazine HCl 10 mg 01/09/21 16:13 01/11/21 12:34 Hydralazine 20 Mg/1 Ml Inj IV 10 mg Q4H PRN Administration Hypertension Hydromorphone HCl 1 mg 01/11/21 14:00 Hydromorphone 1 Mg/1 Ml Inj IV Q4HR ASCENCION Hydrophilic Ointment 1 applic 12/20/20 21:58 Lip Therapy Vaseline TP Q2HR PRN Dry Lips Propofol 1,000 mg in 100 mls @ 3.606 mls/hr 12/20/20 22:00 01/11/21 13:49 Diprivan 10 Mg/Ml IV 30 mcg/kg/min TITR ASCENCION 21.636 mls/hr Administration Protocol 5 MCG/KG/MIN NORepinephrine/NS 8 MG-250 ML 8 mg in 250 mls @ 3.75 mls/hr 12/21/20 09:00 01/02/21 06:15 Norepinephrine/Ns 8 Mg-250 Ml (Double Conc) IV 0 mcg/min TITRATE ASCENCION 0 mls/hr Titration Protocol 2 MCG/MIN Dexmedetomidine HCl 400 mcg/ 104 mls @ 7.322 mls/hr 01/04/21 11:00 01/11/21 12:30 Sodium Chloride IV 0.9 mcg/kg/hr TITRATE ASCENCION 32.947 mls/hr Titration Protocol 0.2 MCG/KG/HR Sodium Chloride 100 mls @ 999 mls/hr 01/10/21 09:08 Nacl 0.9% IV MARILU PRN Hypotension Amino Acids/Electrolytes/Dextrose 1,999.92 mls @ 83.33 mls/hr 01/10/21 20:00 01/10/21 21:03 Tpn Adult IV 01/11/21 19:59 83.33 mls/hr DAILY@1999 [facility] Administration Protocol Nicardipine HCl 50 mg/ Sodium 250 mls @ 25 mls/hr 01/11/21 09:00 Chloride IV TITR [facility] Protocol 5 MG/HR Amino Acids/Electrolytes/Dextrose 1,999.92 mls @ 83.33 mls/hr 01/11/21 20:00 Tpn Adult IV 01/12/21 19:59 DAILY@1999 [facility] Protocol Insulin Human Regular 0 units 12/28/20 00:00 01/11/21 06:41 Insulin Regular, Human 100 Units/1 Ml SUB-Q Not Given Q6H [facility] Protocol Metoclopramide HCl 5 mg 01/09/21 18:00 01/11/21 12:22 Metoclopramide 10 Mg/2 Ml Inj IV 5 mg Q6HR ASCENCION Administration Multi-Ingred Cream/Lotion/Oil/Oint 1 applic 12/20/20 21:58 01/03/21 01:13 Mineral Oil/Petrolatum, White Ophth Oint 3.5 Gm OU 1 applic Q4HR PRN Administration Dry Eye(s) Ondansetron HCl 4 mg 01/11/21 08:09 Ondansetron 4 Mg/2 Ml Inj IV Q8H PRN Nausea And Vomiting Simple Syrup 15 ml 01/07/21 08:44 Simple Syrup 15 Ml FEEDTUBE PRN PRN Hypoglycemia Simple Syrup 30 ml 01/07/21 08:44 Simple Syrup 15 Ml FEEDTUBE PRN PRN Hypoglycemia Sodium Bicarbonate 325 mg 01/07/21 08:44 Sodium Bicarbonate 325 Mg Tab FEEDTUBE PRN PRN For Clogged Feeding Tube Sodium Chloride 10 ml 12/20/20 22:00 01/11/21 12:26 Sodium Chloride 0.9% 10 Ml Flush Syringe IV 10 ml BID ASCENCION Administration Sodium Chloride 10 ml 12/20/20 16:42 Sodium Chloride 0.9% 10 Ml Flush Syringe IV PRN PRN LINE FLUSH Nutrition/Malnutrition Assess - Dietary Evaluation Nutrition/Malnutrition Findings: Nutrition Notes Start: 12/21/20 09:06 Freq: Status: Active Protocol: Document 01/11/21 11:36 MK (Rec: 01/11/21 11:40 MK [id number]) Nutrition Notes Initial or Follow up Reassessment Current Diagnosis Acute Kidney Injury,Coronary Artery Disease,Sepsis, Hypertension,Small Bowel Obstruction,Hyperlipidemia Other Pertinent Diagnosis gangrenous small bowel, s/p small bowel ressection, peritonitis Current Diet TPN at 83.33ml/hr + Nepro 10ml /hr Labs/Tests Na 134 K 3.5 BUN 88 Cr 3.5 Pertinent Medications Propofol at 25.242ml/hr ( provides 666 kcal) Reglan Zofran Height 6 ft Weight 128.1 kg [place] Body Weight (kg) 80.90 BMI 38.2 Weight Status Obese Subjective/Other Information Day CPN. TF not running at time of visit. Per RN, pt felt nauseous. Pt had HD yesterday . Percent of energy/protein needs met: 100% energy 79% pro (CPN only) Burn Absent Trauma Absent Current % PO Negligible Minimum of two criteria No #2 Nutrition Diagnosis Increased nutrient needs ( specify in comment below) Diagnosis Progress(for reassessment Continues documentation) #1 Nutrition Diagnosis Inadequate oral intake Diagnosis Progress(for reassessment Continues documentation) Is patient on ventilator? Yes Is Patient Ambulatory and/or Out of Bed No REE-([facility]-confined to bed) 2564.928 Kcal/Kg value to use for calculation 14 Approximate Energy Requirements Using 1793 kcal/Kg Calculation Used for Recommendations Kcal/kg Additional Notes Pro needs >1.2g/kg adjBW: > 127g/day Fluid needs per MD. Nutrition Intervention Nutrition Support: Continue CPN at 83.33ml/hr: MVI, MTE, 20 mEq K. Osmolality : 1675. Continue Nepro at 10ml/hr as tolerated. Kcal 1,760 Protein (gm) 100 Carbohydrates (gm) 400 Fat (gm) 0 Fluid (mL) 2,000 Fiber (gm) 0 Goal #1 TF tolerance Goal #2 TF plus TPN to meet nutrient needs as best possible Follow-Up By: 01/12/21 Additional Comments Labs in AM: Bmp, Mg, Phos FU for TF restart and tolerance
[2021-01-11] MEDS: FENTANYL 50 MCG/HR TD SCH (14:05)
--- NOTE | 2021-01-11 15:59 | Progress Note ---
Assessment and Plan POD#23 s/p ex lap and small bowel resection for necrotic bowel secondary to incarcerated ventral hernia left with open abdomen. POD#20 s/p abdominal exploration with segmental small bowel resection. abthera placement POD#17 s/p abdominal exploration, small bowel resection for ischemia, abthera placement POD#14 s/p abdominal exploration with small bowel anastamosis and abthera vac placement POD#10 s/p abdomen closure with mesh Tachycardic and hypertensive. 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 No clinical signs of identifiable active bleeding. Spoke with interventional radiology who reviewed CAT scan who feels that the fluid collection is likely reactive and likely will absorb on its own. As long as patient remains stable, afebrile we will hold off on sampling or draining collection. If patient shows decrease in blood count again that is significant, advised to order CT angio. suspect poor pain control off fentanyl drip. consider fentanyl patch and IV push dilaudid for break through pain. Continue supportive care. Prognosis is guarded. Subjective Date of service: 01/11/21 Narrative: Pt has been agitated this morning with elevated heart rate and blood pressure. Able to communicate pain although intubated. Fentanyl drip was stopped yesterday. Pt tolerating trickle feeds and having bowel movements. Objective Vital Signs - 12hr 01/11/21 01/11/21 01/11/21 03:57 04:00 04:15 Temperature 97.9 F Pulse Rate 102 H 98 H 94 H Pulse Rate [ 96 H From Monitor] Respiratory 20 22 Rate Blood Pressure 172/95 170/80 170/80 O2 Sat by Pulse 100 100 97 Oximetry 01/11/21 01/11/21 01/11/21 04:31 04:45 05:01 Temperature Pulse Rate 90 77 73 Pulse Rate [ From Monitor] Respiratory 24 24 15 Rate Blood Pressure 170/80 170/80 106/53 O2 Sat by Pulse 99 91 98 Oximetry 01/11/21 01/11/21 01/11/21 05:15 05:31 05:45 Temperature Pulse Rate 78 72 72 Pulse Rate [ From Monitor] Respiratory 24 24 24 Rate Blood Pressure 106/53 106/53 106/53 O2 Sat by Pulse 98 100 100 Oximetry 01/11/21 01/11/21 01/11/21 06:00 06:15 06:31 Temperature Pulse Rate 67 66 65 Pulse Rate [ From Monitor] Respiratory 24 24 24 Rate Blood Pressure 116/56 116/56 116/56 O2 Sat by Pulse 100 97 97 Oximetry 01/11/21 01/11/21 01/11/21 06:45 07:00 07:10 Temperature 97.8 F Pulse Rate 63 65 Pulse Rate [ From Monitor] Respiratory 24 24 Rate Blood Pressure 116/56 137/67 O2 Sat by Pulse 98 100 Oximetry 01/11/21 01/11/21 01/11/21 07:15 07:28 07:31 Temperature Pulse Rate 63 67 80 Pulse Rate [ From Monitor] Respiratory 24 11 L Rate Blood Pressure 137/67 116/56 137/67 O2 Sat by Pulse 99 100 100 Oximetry 01/11/21 01/11/21 01/11/21 07:45 08:00 08:01 Temperature Pulse Rate 87 107 H 105 H Pulse Rate [ 106 H From Monitor] Respiratory 14 24 49 H Rate Blood Pressure 137/67 137/67 O2 Sat by Pulse 100 100 99 Oximetry 01/11/21 01/11/21 01/11/21 08:15 08:30 08:45 Temperature Pulse Rate 124 H 128 H 123 H Pulse Rate [ From Monitor] Respiratory 44 H 29 H 29 H Rate Blood Pressure 242/122 235/111 179/85 O2 Sat by Pulse 97 96 98 Oximetry 01/11/21 01/11/21 01/11/21 09:00 09:15 09:30 Temperature Pulse Rate 113 H 122 H 96 H Pulse Rate [ From Monitor] Respiratory 27 H 26 H 24 Rate Blood Pressure 178/92 165/90 118/65 O2 Sat by Pulse 99 98 99 Oximetry 01/11/21 01/11/21 01/11/21 09:45 10:00 10:15 Temperature Pulse Rate 76 74 103 H Pulse Rate [ From Monitor] Respiratory 10 L 24 12 Rate Blood Pressure 81/40 89/43 138/83 O2 Sat by Pulse 97 98 98 Oximetry 01/11/21 01/11/21 01/11/21 10:30 10:45 11:00 Temperature Pulse Rate 100 H 99 H 100 H Pulse Rate [ From Monitor] Respiratory 24 19 17 Rate Blood Pressure 136/69 115/65 124/70 O2 Sat by Pulse 95 96 97 Oximetry 01/11/21 01/11/2101/11/21 11:15 11:30 11:45 Temperature Pulse Rate 101 H 97 H 100 H Pulse Rate [ From Monitor] Respiratory 19 19 22 Rate Blood Pressure 143/79 131/71 136/71 O2 Sat by Pulse 100 98 98 Oximetry 01/11/21 01/11/21 01/11/21 12:00 12:07 12:15 Temperature 98.5 F Pulse Rate 110 H 120 H Pulse Rate [ From Monitor] Respiratory 26 H 35 H Rate Blood Pressure 141/101 141/101 O2 Sat by Pulse 99 99 Oximetry 01/11/21 01/11/21 01/11/21 12:31 12:45 13:01 Temperature Pulse Rate 133 H 129 H 126 H Pulse Rate [ From Monitor] Respiratory 46 H 30 H 29 H Rate Blood Pressure 250/128 250/128 194/102 O2 Sat by Pulse 97 98 98 Oximetry 01/11/21 01/11/21 13:15 15:52 Temperature 98.6 F Pulse Rate 117 H Pulse Rate [ From Monitor] Respiratory 23 Rate Blood Pressure 188/90 O2 Sat by Pulse 98 Oximetry - General physical appearance well developed, moderate distress, obese - Respiratory normal expansion, normal respiratory effort, other (intubated on ventilator) - Abdomen soft, other (incision c/d/i, LAURA drains serous, NGT with trickle feeds) - Labs 01/10/21 04:01 01/11/21 04:45 Diabetes panel 01/11/21 Range/Units 04:45 Sodium 134 L (137-145) mmol/L Potassium 3.5 L D (3.6-5.0) mmol/L Chloride 95.5 L (98-107) mmol/L Carbon Dioxide 23 (22-30) mmol/L BUN 88 H (9-20) mg/dL Creatinine 3.5 H (0.8-1.3) mg/dL Glucose 103 H (75-100) mg/dL Calcium 8.8 (8.4-10.2) mg/dL Calcium panel 01/11/21 Range/Units 04:45 Calcium 8.8 (8.4-10.2) mg/dL Phosphorus 4.20 D (2.5-4.5) mg/dL Pituitary panel 01/11/21 Range/Units 04:45 Sodium 134 L (137-145) mmol/L Potassium 3.5 L D (3.6-5.0) mmol/L Chloride 95.5 L (98-107) mmol/L Carbon Dioxide 23 (22-30) mmol/L BUN 88 H (9-20) mg/dL Creatinine 3.5 H (0.8-1.3) mg/dL Glucose 103 H (75-100) mg/dL Calcium 8.8 (8.4-10.2) mg/dL Adrenal panel 01/11/21 Range/Units 04:45 Sodium 134 L (137-145) mmol/L Potassium 3.5 L D (3.6-5.0) mmol/L Chloride 95.5 L (98-107) mmol/L Carbon Dioxide 23 (22-30) mmol/L BUN 88 H (9-20) mg/dL Creatinine 3.5 H (0.8-1.3) mg/dL Glucose 103 H (75-100) mg/dL Calcium 8.8 (8.4-10.2) mg/dL
[2021-01-11] MEDS: HYDROmorphone 1 MG/1 ML INJ IV SCH ×3 (17:52→21:39)
[2021-01-11] MEDS ORDERED: TOTAL PARENTERAL NUTRITION 1,999.92 ML IV SCH (20:00)
[2021-01-12] MEDS: HYDROmorphone 1 MG/1 ML INJ IV SCH ×6 (01:46→21:42)
[2021-01-12] MEDS: INSULIN REGULAR, HUMAN 100 UNITS/1 ML SUB-Q SCH ×4 (02:39→18:36)
[2021-01-12] MEDS: HEPARIN 5,000 UNIT/1 ML VIAL SUB-Q SCH ×3 (06:06→21:42)
[2021-01-12] MEDS: METOCLOPRAMIDE 10 MG/2 ML INJ IV SCH ×3 (06:07→18:03)
--- NOTE | 2021-01-12 08:42 | Progress Note ---
Assessment and Plan Impression * Nonoliguric acute kidney injury secondary to ATN --HD initiated December 30 * Incarcerated hernia with ischemic bowel. Status post bowel resection * Hypernatremia, now with hyponatremia * Fluid overload * Sepsis * Respiratory failure, intubated * Hyperkalemia * Metabolic Acidosis, Gap * Hypoalbuminemia * Anemia Recommendations * Continue HD TTS - UF as tolerated * Monitor for evidence of recovery * Maintain haley cathteter for strict I/O * Transfuse for Hb < 7 * TPN per nutrition/primary * Pressors prn to maintain MAP greater than 65 * Avoid nephrotoxins * Monitor fluid status and electrolytes * Primary and consult notes reviewed Subjective Date of service: 01/12/21 Principal diagnosis: SBO and necrosis of large part of small intestine Objective - Vital Signs Vital signs: Vital Signs - 12hr 01/11/21 01/11/21 01/11/21 21:00 21:30 22:00 Temperature Pulse Rate 101 H 96 H 102 H Pulse Rate [ From Monitor] Respiratory 19 21 20 Rate Blood Pressure 180/92 185/92 O2 Sat by Pulse 97 96 98 Oximetry 01/11/21 01/11/21 01/11/21 22:30 23:00 23:30 Temperature Pulse Rate 98 H 97 H 100 H Pulse Rate [ From Monitor] Respiratory 15 16 15 Rate Blood Pressure 185/92 175/97 184/93 O2 Sat by Pulse 97 97 98 Oximetry 01/11/21 01/11/21 01/12/21 23:32 23:42 00:00 Temperature 98.4 F Pulse Rate 97 H 102 H 100 H Pulse Rate [ 100 H From Monitor] Respiratory 23 27 H Rate Blood Pressure 198/104 198/104 198/104 O2 Sat by Pulse 97 97 Oximetry 01/12/21 01/12/21 01/12/21 00:13 00:30 01:00 Temperature Pulse Rate 98 H 97 H 98 H Pulse Rate [ From Monitor] Respiratory 20 28 H Rate Blood Pressure 159/87 159/87 154/82 O2 Sat by Pulse 97 96 97 Oximetry 01/12/21 01/12/21 01/12/21 01:30 02:00 02:30 Temperature Pulse Rate 93 H 94 H 95 H Pulse Rate [ From Monitor] Respiratory 23 23 26 H Rate Blood Pressure 165/88 146/91 164/87 O2 Sat by Pulse 97 97 98 Oximetry 06/01/12/21 01/12/21 03:00 03:30 04:00 Temperature Pulse Rate 95 H 92 H 96 H Pulse Rate [ 93 H From Monitor] Respiratory 28 H 26 H 27 H Rate Blood Pressure 158/88 171/91 172/95 O2 Sat by Pulse 98 98 98 Oximetry 01/12/21 01/12/21 01/12/21 04:30 04:50 05:00 Temperature Pulse Rate 94 H 96 H 93 H Pulse Rate [ From Monitor] Respiratory 28 H 23 Rate Blood Pressure 172/95 186/90 186/90 O2 Sat by Pulse 98 96 98 Oximetry 01/12/21 01/12/21 01/12/21 05:30 06:00 06:30 Temperature Pulse Rate 96 H 98 H 94 H Pulse Rate [ From Monitor] Respiratory 26 H 23 29 H Rate Blood Pressure 184/90 188/106 188/106 O2 Sat by Pulse 99 99 99 Oximetry 01/12/21 01/12/21 01/12/21 07:00 07:30 08:00 Temperature 98.1 F Pulse Rate 89 82 76 Pulse Rate [ From Monitor] Respiratory 29 H 25 H 24 Rate Blood Pressure 167/98 163/91 144/75 O2 Sat by Pulse 98 99 99 Oximetry - General Appearance General appearance: well-developed EENT: ATNC, other (ETT in place) Respiratory: Present: Other (coarse BS) Cardiology: regular, S1S2 Gastrointestinal: hypoactive bowel sounds, obese Musculoskeletal: other (1+ edema) - Lab 01/13/21 05:00 01/13/21 05:00 Most recent lab results ABG pH 7.311 (7.320-7.450) L 01/11/21 04:00 ABG pCO2 37.9 mm Hg 01/05/21 03:50 ABG pO2 136.8 mm Hg (80.0-90.0) H 01/05/21 03:50 ABG HCO3 22.4 mmol/L (20.0-26.0) 01/05/21 03:50 ABG O2 Saturation 96.2 (0-100) 01/11/21 04:00 Calcium 8.8 mg/dL (8.4-10.2) 01/11/21 04:45 Phosphorus 4.20 mg/dL (2.5-4.5) D 01/11/21 04:45 Magnesium 1.90 mg/dL (1.7-2.3) 01/11/21 04:45 Urine Creatinine 78.1 mg/dL (0.1-20.0) H 12/23/20 12:15 Urine Sodium 13 mmol/L 12/23/20 12:15 Medications & Allergies - Medications Allergies/Adverse Reactions: Allergies Iodinated Contrast Media Adverse Reaction (Verified 09/04/18 14:20) Unknown Home Medications: Home Medications Medication Instructions Recorded Confirmed Last Taken Type Aspirin 81 mg PO DAILY #30 tab.chew 09/08/18 01/04/21 03/31/20 09:28 Rx AtorvaSTATin [Lipitor] 80 mg PO QHS tablet 05/08/19 01/04/21 03/28/20 Rx Albuterol Sulfate [Proventil Hfa] 13.4 gm IH Q6H #1 hfa.aer.ad 04/01/20 01/04/21 Unknown Rx Clopidogrel [Plavix] 75 mg PO DAILY #30 tablet 04/01/20 01/04/21 Unknown Rx Gabapentin 300 mg PO BID@0700,1800 30 Days 04/01/20 01/04/21 Unknown Rx capsule Gabapentin 600 mg PO QHS 30 Days capsule 04/01/20 01/04/21 Unknown Rx Metoprolol [Lopressor TAB] 25 mg PO BID #60 tablet 04/01/20 01/04/21 Unknown Rx [place]-3/Dha/Epa/Fish Oil [[place] 3 1 each PO BID #60 capsule 04/01/20 01/04/21 Unknown Rx 500 Softgel] Tiotropium [place] [Spiriva] 2 puff IH DAILY #30 cap.w.dev 04/01/20 01/04/21 Unknown Rx Ubidecarenone [Co Q-10] 10 mg PO BID #60 tab 04/01/20 01/04/21 03/29/20 Rx cilostazoL [Pletal] 50 mg PO BID 30 Days tablet 04/01/20 01/04/21 Unknown Rx oxyCODONE /ACETAMINOPHEN [Percocet 2 tab PO Q6H PRN tablet 04/01/20 01/04/21 Unknown Rx 5/325 mg] Phosphorus #1 [K-Phos Neutral] 250 mg PO QID 2 Days #8 tablet 09/14/20 01/04/21 Unknown Rx Active Medications: Generic Name Dose Route Start Last Admin Trade Name Freq PRN Reason Stop Dose Admin Acetaminophen 650 mg 12/21/20 11:51 12/25/20 20:35 Acetaminophen 650 Mg Rect Supp OR 650 mg Q4H PRN Administration TEMP >/=100.4 Lipase/Protease/Amylase 1 each 01/07/21 08:44 Lipase 10,500/Protease 25,000/Amylase 43,750 (Units) Dr Maharaj FEEDTUBE PRN PRN For Clogged Feeding Tube Bisacodyl 10 mg 12/30/20 11:00 01/11/21 10:09 Bisacodyl 10 Mg Rect Supp OR 10 mg QDAY ASCENCION Administration Dextrose 50 ml 12/24/20 10:49 Dextrose 50% In Water (25gm) 50 Ml Syringe IV Q30MIN PRN Hypoglycemia Protocol Famotidine 20 mg 12/26/20 10:00 01/11/21 10:09 Famotidine 20 Mg/2 Ml Inj IV 20 mg DAILY ASCENCION Administration Fentanyl 1 applic 01/11/21 14:00 01/11/21 14:05 Fentanyl 50 Mcg/Hr Patch 72hr TD 1 applic Q3D ASCENCION Administration Heparin Sodium (Porcine) 5,000 unit 01/06/21 14:00 01/12/21 06:06 Heparin 5,000 Unit/1 Ml Vial SUB-Q 5,000 unit Q8HR ASCENCION Administration Hydralazine HCl 10 mg 01/09/21 16:13 01/11/21 23:32 Hydralazine 20 Mg/1 Ml Inj IV 10 mg Q4H PRN Administration Hypertension Hydromorphone HCl 1 mg 01/11/21 14:00 01/12/21 05:56 Hydromorphone 1 Mg/1 Ml Inj IV 1 mg Q4HR ASCENCION Administration Hydrophilic Ointment 1 applic 12/20/20 21:58 Lip Therapy Vaseline TP Q2HR PRN Dry Lips Propofol 1,000 mg in 100 mls @ 3.606 mls/hr 12/20/20 22:00 01/12/21 05:53 Diprivan 10 Mg/Ml IV 30 mcg/kg/min TITR ASCENCION 21.636 mls/hr Administration Protocol 5 MCG/KG/MIN Dexmedetomidine HCl 400 mcg/ 104 mls @ 7.322 mls/hr 01/04/21 11:00 01/12/21 07:59 Sodium Chloride IV 0.9 mcg/kg/hr TITRATE ASCENCION 32.947 mls/hr Administration Protocol 0.2 MCG/KG/HR Sodium Chloride 100 mls @ 999 mls/hr 01/10/21 09:08 Nacl 0.9% IV MARILU PRN Hypotension Nicardipine HCl 50 mg/ Sodium 250 mls @ 25 mls/hr 01/11/21 09:00 Chloride IV TITR [facility] Protocol 5 MG/HR Amino Acids/Electrolytes/Dextrose 1,999.92 mls @ 83.33 mls/hr 01/11/21 20:00 01/11/21 20:31 Tpn Adult IV 01/12/21 19:59 83.33 mls/hr DAILY@1999 [facility] Administration Protocol Insulin Human Regular 0 units 12/28/20 00:00 01/12/21 05:52 Insulin Regular, Human 100 Units/1 Ml SUB-Q Not Given Q6H [facility] Protocol Metoclopramide HCl 5 mg 01/09/21 18:00 01/12/21 06:07 Metoclopramide 10 Mg/2 Ml Inj IV 5 mg Q6HR ASCENCION Administration Multi-Ingred Cream/Lotion/Oil/Oint 1 applic 12/20/20 21:58 01/03/21 01:13 Mineral Oil/Petrolatum, White Ophth Oint 3.5 Gm OU 1 applic Q4HR PRN Administration Dry Eye(s) Ondansetron HCl 4 mg 01/11/21 08:09 Ondansetron 4 Mg/2 Ml Inj IV Q8H PRN Nausea And Vomiting Simple Syrup 15 ml 01/07/21 08:44 Simple Syrup 15 Ml FEEDTUBE PRN PRN Hypoglycemia Simple Syrup 30 ml 01/07/21 08:44 Simple Syrup 15 Ml FEEDTUBE PRN PRN Hypoglycemia Sodium Bicarbonate 325 mg 01/07/21 08:44 Sodium Bicarbonate 325 Mg Tab FEEDTUBE PRN PRN For Clogged Feeding Tube Sodium Chloride 10 ml 12/20/20 22:00 01/11/21 21:41 Sodium Chloride 0.9% 10 Ml Flush Syringe IV 10 ml BID ASCENCION Administration Sodium Chloride 10 ml 12/20/20 16:42 Sodium Chloride 0.9% 10 Ml Flush Syringe IV PRN PRN LINE FLUSH
--- NOTE | 2021-01-12 08:54 | Progress Note ---
Assessment and Plan Assessment and plan: 60-year-old male with obesity, hypertension, nicotine dependence, PVD s/p stent placement on dual antiplatelet therapy, hyperlipidemia, OA, GERD, ventral hernia and small bowel obstruction who was admitted with small bowel obstruction and peritonitis Septic Shock, POA (presented with leukocytosis, tachycardia, tachypnea,febrile and evidence of peritonitis) HPI -12/20 CT abdomen/pelvis showed high-grade small bowel obstruction related to severe complex ventral abdominal wall hernias, progressed in appearance from prior exam from 09/12/2020 without evidence of pneumonitis or pneumoperitoneum, patchy bibasilar airspace disease concern for atypical infectious process/pneumonitis --s/p ex lap, extensive lysis of adhesions, small bowel resection (removal of 70 cm necrotic small bowel segment), peritoneal lavage and ABThera abdominal wound VAC placement -12/23 s/p abdominal exploration, small bowel resection, peritoneal lavage, ABThera wound VAC placement -12/26 s/p ex lap, small bowel resection, peritoneal lavage, ABThera wound VAC placement -12/27 s/p ex lap, extensive lysis of adhesions, small bowel resection (removal of 70 cm necrotic small bowel segment), peritoneal lavage and ABThera abdominal wound VAC placement. -12/29 s/p ex lap, small bowel resection, small bowel anastomosis and ABThera wound VAC placement -01/01 s/p myocutaneous flap creation, abdominal wall component separation and placement of phasix mesh with surgery yesterday where his abdomen was closed and 2 LAURA drains were placed on either side of his midline between fascia and SQ tissue. -12/30 initiated on HD by nephro -01/03 RBC x2 -01/06 RBC -01/07 RBC -01/09 stool pos for guiac; CT Chest/abd/pelvis -01/10: Patient this morning with elevated BP, likely secondary to pain vs ?Hx of Htn, Hydralazine PRN ordered and added to the patient, will monitor. Continue pain control. Wound care management and vent weaning when ok with surgery and Logistics Engineer 01/12: Continue supportive care including pain control. Monitor for bowel movement. Continue off antibiotics per ID monitor. Senior Net Engineer following for HD. Problem List COVID-19 PUI, ruled out Small bowel obstruction with peritonitis Ventral hernia s/p repair Leukocytosis Anemia Hyponatremia Hypochloremia Acute Kidney Injury, on HD Obesity Hypertension Nicotine dependence CAD s/p stent placement Hyperlipidemia Osteoarthritis GERD medical non adherence Systems Exam NEURO- uremic; sedated; generalized weakness; post op pain; high risk delirium opens eyes; nods appropriately; following commands PERRL generalized weakness fentanyl weaned off overnight now on dex and propofol - low doses dex does make pt bradycardic RASS goal neg 4 PRN tylenol for pain NOK mother - pt's brother was updated on plan of care case management following for d/c planning CV- nap SB-SR As pt is awake more his bp has increased PRN hydral RESP- post op resp failure remains ventilated on CMV [id number] daily ABG wean as tolerated to PS trails intubated 12/20 if fails to extubate soon - likely trach ABG daily and PRN GI- sp SBO with exlap repair; protein isha malnutrition TF at 10- tolerating well TPN nutrition following LAURA x 2/abd drains with minimal outpput continue to trend output Gen surg following CT chest abd and pelvis today with PO and IV contrast-01/09 see report stooling OH daily dulclox reglan daily pepcid scheduled - JONI requiring HD; hyponatremia; hyperK; uremia haley strict I/O trending electrolytes nephrology following HD usually M/W/F HD today - sp contrast -cleaned no UF- tolerated well kidney function seems to be returning pt was net neg 1.7L over the last 24 hurs- and he made 2.8L of urine Na 128 - continue to monitor; post HD today AM labs ordered HEME- post op anemia SQH VTE RBC x 2 on 01/03; RBC x 1 on 01/06 and RBC x 1 on 01/07 -- see hgb trend; not appropriate response Hgb stable today at 8.2 Gen surg has discussed with IR- will monitor for now- if there is a dec in Hgb will consider CTA abd/pelvis and IR intervention coags normal CBC in AM ID- leukocytosis ID following no antibiotics at this time trend WBC and temp curve consider rotation of vascath if concern for infection 12/21 covid neg 12/21 Hep. neg wound care per staff developer ENDO- DM2; hyperglycemia; obese SSI Q6H avoid hypoglycemia Disposition Plan: LTAC Total Time Spent with Patient (Minutes): 60 The high probability of a clinically significant, sudden or life threatening deterioration of the [multiple] system(s) required my full and direct attention, intervention and personal management. The aggregate critical care time was [60] minutes. This time is in addition to time spent performing reported procedures but includes the following: [x] Data Review and interpretation [x] Patient assessment and monitoring of vital signs [x] Documentation [x] Medication orders and management History Interval history: Patient seen and examined this am, blood pressure improving patient now on fentanyl patch with Dilaudid IV scheduled. Hospitalist Physical - Physical exam Narrative exam: General appearance: Present: mild distress, well-nourished, obese, other (sedated) and intubated - EENT Eyes: Present: PERRL, EOM intact ENT: hearing intact - Neck Neck: Present: supple, normal ROM - Respiratory Respiratory: bilateral: diminished - Cardiovascular Rhythm: regular Heart Sounds: Present: S1 & S2 - Extremities Extremity abnormal: edema Peripheral Pulses: within normal limits - Abdominal General gastrointestinal: soft, tender- Abdominal Binder and midline dressing with drainage tubes noted. - Integumentary Integumentary: Present: clear, warm - Psychiatric Psychiatric: cooperative - Allied Health Allied health notes reviewed: nursing, PT, ST, OT, RT, social work, case management - Constitutional Vitals: Temp Pulse Resp BP Pulse Ox 98.1 F 76 24 144/75 99 01/12/21 08:00 01/12/21 08:00 01/12/21 08:00 01/12/21 08:00 01/12/21 08:00 General appearance: Present: mild distress, well-nourished, obese, other (sedated) HEART Score - HEART Score EKG: Normal Age: < 45 Risk factors: No known risk factors Troponin: Troponin T < 0.010 ng/mL (0.00-0.029) 12/20/20 13:58 Troponin: < normal limit - Critical Actions Critical Actions: 0-3 pts:0.9-1.7%risk of adverse cardiac event.Candidate for discharge Results - Labs CBC & Chem 7: 01/10/21 04:01 01/12/21 10:00 Labs: Laboratory Last Values WBC 12.6 K/mm3 (4.5-11.0) H 01/10/21 04:01 RBC 2.89 M/mm3 (3.65-5.03) L 01/10/21 04:01 Hgb 8.1 gm/dl (11.8-15.2) L 01/10/21 04:01 Hct 24.9 % (35.5-45.6) L 01/10/21 04:01 MCV 86 fl (84-94) 01/10/21 04:01 MCH 28 pg (28-32) 01/10/21 04:01 MCHC 32 % (32-34) 01/10/21 04:01 RDW 16.6 % (13.2-15.2) H 01/10/21 04:01 Plt Count 257 K/mm3 (140-440) 01/10/21 04:01 Add Manual Diff Complete 01/10/21 04:01 Total Counted 100 01/10/21 04:01 Seg Neutrophils % Senior Director Of [employer] 01/10/21 04:01 Seg Neuts % (Manual) 95.0 % (40.0-70.0) H 01/10/21 04:01 Band Neutrophils % 2.0 % 01/10/21 04:01 Lymphocytes % (Manual) 3.0 % (13.4-35.0) L 01/10/21 04:01 Monocytes % (Manual) 1.0 % (0.0-7.3) 01/09/21 10:10 Metamyelocytes % 1.0 % 01/09/21 10:10 Myelocytes % 1.0 % 01/09/21 10:10 Nucleated RBC % Not Reportable 01/10/21 04:01 Seg Neutrophils # Man 12.0 K/mm3 (1.8-7.7) H 01/10/21 04:01 Band Neutrophils # 0.3 K/mm3 01/10/21 04:01 Lymphocytes # (Manual) 0.4 K/mm3 (1.2-5.4) L 01/10/21 04:01 Abs React Lymphs (Man) 0.0 K/mm3 01/10/21 04:01 Monocytes # (Manual) 0.0 K/mm3 (0.0-0.8) 01/10/21 04:01 Eosinophils # (Manual) 0.0 K/mm3 (0.0-0.4) 01/10/21 04:01 Basophils # (Manual) 0.0 K/mm3 (0.0-0.1) 01/10/21 04:01 Metamyelocytes # 0.0 K/mm3 01/10/21 04:01 Myelocytes # 0.0 K/mm3 01/10/21 04:01 Promyelocytes # 0.0 K/mm3 01/10/21 04:01 Blast Cells # 0.0 K/mm3 01/10/21 04:01 WBC Morphology Not Reportable 01/10/21 04:01 Hypersegmented Neuts Not Reportable 01/10/21 04:01 Hyposegmented Neuts Not Reportable 01/10/21 04:01 Hypogranular Neuts Not Reportable 01/10/21 04:01 Smudge Cells Not Reportable 01/10/21 04:01 Toxic Granulation Not Reportable 01/10/21 04:01 Toxic Vacuolation Not Reportable 01/10/21 04:01 Dohle Bodies Not Reportable 01/10/21 04:01 Pelger-Huet Anomaly Not Reportable 01/10/21 04:01 Mirian Rods Not Reportable 01/10/21 04:01 Platelet Estimate Consistent w auto 01/10/21 04:01 Clumped Platelets Not Reportable 01/10/21 04:01 Plt Clumps, EDTA Not Reportable 01/10/21 04:01 Large Platelets Not Reportable 01/10/21 04:01 Giant Platelets Not Reportable 01/10/21 04:01 Platelet Satelliting Not Reportable 01/10/21 04:01 Plt Morphology Comment Not Reportable 01/10/21 04:01 RBC Morphology Not Reportable 01/10/21 04:01 Dimorphic RBCs Not Reportable 01/10/21 04:01 Polychromasia Not Reportable 01/10/21 04:01 Hypochromasia Few 01/10/21 04:01 Poikilocytosis Not Reportable 01/10/21 04:01 Anisocytosis Few 01/10/21 04:01 Microcytosis Few 01/10/21 04:01 Macrocytosis Not Reportable 01/10/21 04:01 Spherocytes Not Reportable 01/10/21 04:01 Pappenheimer Bodies Not Reportable 01/10/21 04:01 Sickle Cells Not Reportable 01/10/21 04:01 Target Cells Not Reportable 01/10/21 04:01 Tear Drop Cells Not Reportable 01/10/21 04:01 Ovalocytes Not Reportable 01/10/21 04:01 Helmet Cells Not Reportable 01/10/21 04:01 Mart-Ben Arnold Bodies Not Reportable 01/10/21 04:01 [place] Rings Not Reportable 01/10/21 04:01 Chauncey Cells Not Reportable 01/10/21 04:01 Bite Cells Not Reportable 01/10/21 04:01 Crenated Cell Not Reportable 01/10/21 04:01 Elliptocytes Not Reportable 01/10/21 04:01 Acanthocytes (Spur) Not Reportable 01/10/21 04:01 Rouleaux Not Reportable 01/10/21 04:01 Hemoglobin C Crystals Not Reportable 01/10/21 04:01 Schistocytes Not Reportable 01/10/21 04:01 Malaria parasites Not Reportable 01/10/21 04:01 Dylon Bodies Not Reportable 01/10/21 04:01 Hem Pathologist Commnt No 01/10/21 04:01 PT 15.4 Sec. (12.2-14.9) H 01/10/21 04:01 INR 1.17 (0.87-1.13) H 01/10/21 04:01 APTT 40.2 Sec. (24.2-36.6) H 01/10/21 04:01 Fibrinogen 817 mg/dl (211-480) H 01/10/21 04:01 ABG pH 7.311 (7.320-7.450) L 01/11/21 04:00 POC ABG pCO2 49.2 mmHg (32.0-48.0) H 01/11/21 04:00 ABG pCO2 37.9 mm Hg 01/05/21 03:50 POC ABG pO2 90.2 mmHg (83-108) 01/11/21 04:00 ABG pO2 136.8 mm Hg (80.0-90.0) H 01/05/21 03:50 POC ABG HCO3 24.3 01/11/21 04:00 ABG HCO3 22.4 mmol/L (20.0-26.0) 01/05/21 03:50 ABG O2 Saturation 96.2 (0-100) 01/11/21 04:00 ABG O2 Content 9.8 (0.0-44) 01/05/21 03:50 POC ABG Base Excess -2.1 01/11/21 04:00 ABG Base Excess -2.3 mmol/L (-2.0-3.0) L 01/05/21 03:50 ABG Hemoglobin 9.4 (12.0-17.5) L 01/11/21 04:00 ABG Oxyhemoglobin 95.2 (94-98) 01/11/21 04:00 ABG Carboxyhemoglobin 1.5 % (0.0-5.0) 01/05/21 03:50 ABG Methemoglobin 0.3 (0.0-1.5) 01/11/21 04:00 ABG Sodium 130.3 mmol/L (136.0-145.0) L 01/11/21 04:00 ABG Potassium 3.7 mmol/L (3.40-4.50) 01/11/21 04:00 ABG Chloride 96.0 mmol/L (98-107) L 01/11/21 04:00 ABG Glucose 104 mg/dL (65-95) H 01/11/21 04:00 Oxyhemoglobin 96.7 % (95.0-99.0) 01/05/21 03:50 Carboxyhemoglobin 0.7 (0.5-1.5) 01/11/21 04:00 FiO2 50 % 01/05/21 03:50 FiO2 % 35.0 01/11/21 04:00 Sodium 134 mmol/L (137-145) L 01/11/21 04:45 Potassium 3.5 mmol/L (3.6-5.0) L D 01/11/21 04:45 Chloride 95.5 mmol/L (98-107) L 01/11/21 04:45 Carbon Dioxide 23 mmol/L (22-30) 01/11/21 04:45 Anion Gap 19 mmol/L 01/11/21 04:45 BUN 88 mg/dL (9-20) H 01/11/21 04:45 Creatinine 3.5 mg/dL (0.8-1.3) H 01/11/21 04:45 Estimated GFR 18 ml/min 01/11/21 04:45 BUN/Creatinine Ratio 25 % 01/11/21 04:45 Glucose 103 mg/dL (75-100) H 01/11/21 04:45 POC Glucose 114 mg/dL (70-105) H 01/12/21 05:51 Lactic Acid 1.70 mmol/L (0.7-2.0) 12/20/20 16:20 Calcium 8.8 mg/dL (8.4-10.2) 01/11/21 04:45 Ionized Calcium 3.3 mg/dL (4.8-5.6) L 12/27/20 14:40 Phosphorus 4.20 mg/dL (2.5-4.5) D 01/11/21 04:45 Magnesium 1.90 mg/dL (1.7-2.3) 01/11/21 04:45 Total Bilirubin 0.50 mg/dL (0.1-1.2) 01/10/21 04:01 AST 22 units/L (5-40) 01/10/21 04:01 ALT 19 units/L (7-56) 01/10/21 04:01 Alkaline Phosphatase 117 units/L (35-129) 01/10/21 04:01 Troponin T < 0.010 ng/mL (0.00-0.029) 12/20/20 13:58 Total Protein 6.2 g/dL (6.3-8.2) L 01/10/21 04:01 Albumin 2.1 g/dL (3.9-5) L 01/10/21 04:01 Albumin/Globulin Ratio 0.5 % 01/10/21 04:01 Triglycerides 166 mg/dL (2-149) H 01/08/21 Unknown Arterial Blood Glucose 104 mg/dL (65-95) H 01/11/21 04:00 Arterial Blood Ionized Calcium 4.9 mg/dL (4.6-5.3) 01/11/21 04:00 Urine Color Yellow (Yellow) 12/23/20 12:15 Urine Turbidity Cloudy (Clear) 12/23/20 12:15 Urine pH 5.0 (5.0-7.0) 12/23/20 12:15 Ur Specific [place] 1.019 (1.003-1.030) 12/23/20 12:15 Urine Protein <15 mg/dl mg/dL (Negative) 12/23/20 12:15 Urine Glucose (UA) Neg mg/dL (Negative) 12/23/20 12:15 Urine Ketones Neg mg/dL (Negative) 12/23/20 12:15 Urine Blood Sm (Negative) 12/23/20 12:15 Urine Nitrite Neg (Negative) 12/23/20 12:15 Urine Bilirubin Neg (Negative) 12/23/20 12:15 Urine Urobilinogen < 2.0 mg/dL (<2.0) 12/23/20 12:15 Ur Leukocyte Esterase Neg (Negative) 12/23/20 12:15 Urine WBC (Auto) 5.0 /HPF (0.0-6.0) 12/23/20 12:15 Urine RBC (Auto) 2.0 /HPF (0.0-6.0) 12/23/20 12:15 U Epithel Cells (Auto) < 1.0 /HPF (0-13.0) 12/20/20 Unknown Urine Bacteria (Auto) 1+ /HPF (Negative) 12/23/20 12:15 Triple Phos Crystals 2+ 12/23/20 12:15 Hyaline Casts 19 /LPF 12/20/20 Unknown Urine Mucus Few /HPF 12/23/20 12:15 Urine Eosinophils None seen (None Seen) 12/23/20 12:15 Urine Creatinine 78.1 mg/dL (0.1-20.0) H 12/23/20 12:15 Urine Sodium 13 mmol/L 12/23/20 12:15 Fraction Sodium Excret 0.2 12/23/20 12:15 Random Vancomycin 7.9 ug/mL (0-40.0) 12/23/20 12:15 Coronavirus (PCR) Negative (Negative) 12/21/20 Unknown Hepatitis A IgM Ab Non-reactive (NonReactive) 12/30/20 14:40 Hep Bs Antigen Non-reactive (Negative) 12/30/20 14:40 Hep B Core IgM Ab Non-reactive (NonReactive) 12/30/20 14:40 Hepatitis C Antibody Non-reactive (NonReactive) 12/30/20 14:40 Blood Type A NEGATIVE 01/06/21 11:00 Antibody Screen Negative 01/06/21 11:00 Crossmatch See Detail 01/06/21 11:00 Haley/IV: Voiding Method Indwelling Catheter Active Medications - Current Medications Current Medications: Generic Name Dose Route Start Last Admin Trade Name Freq PRN Reason Stop Dose Admin Acetaminophen 650 mg 12/21/20 11:51 12/25/20 20:35 Acetaminophen 650 Mg Rect Supp OH 650 mg Q4H PRN Administration TEMP >/=100.4 Lipase/Protease/Amylase 1 each 01/07/21 08:44 Lipase 10,500/Protease 25,000/Amylase 43,750 (Units) Dr Maharaj FEEDTUBE PRN PRN For Clogged Feeding Tube Bisacodyl 10 mg 12/30/20 11:00 01/11/21 10:09 Bisacodyl 10 Mg Rect Supp OH 10 mg QDAY ASCENCION Administration Dextrose 50 ml 12/24/20 10:49 Dextrose 50% In Water (25gm) 50 Ml Syringe IV Q30MIN PRN Hypoglycemia Protocol Famotidine 20 mg 12/26/20 10:00 01/11/21 10:09 Famotidine 20 Mg/2 Ml Inj IV 20 mg DAILY ASCENCION Administration Fentanyl 1 applic 01/11/21 14:00 01/11/21 14:05 Fentanyl 50 Mcg/Hr Patch 72hr TD 1 applic Q3D ASCENCION Administration Heparin Sodium (Porcine) 5,000 unit 01/06/21 14:00 01/12/21 06:06 Heparin 5,000 Unit/1 Ml Vial SUB-Q 5,000 unit Q8HR ASCENCION Administration Hydralazine HCl 10 mg 01/09/21 16:13 01/11/21 23:32 Hydralazine 20 Mg/1 Ml Inj IV 10 mg Q4H PRN Administration Hypertension Hydromorphone HCl 1 mg 01/11/21 14:00 01/12/21 05:56 Hydromorphone 1 Mg/1 Ml Inj IV 1 mg Q4HR ASCENCION Administration Hydrophilic Ointment 1 applic 12/20/20 21:58 Lip Therapy Vaseline TP Q2HR PRN Dry Lips Propofol 1,000 mg in 100 mls @ 3.606 mls/hr 12/20/20 22:00 01/12/21 05:53 Diprivan 10 Mg/Ml IV 30 mcg/kg/min TITR ASCENCION 21.636 mls/hr Administration Protocol 5 MCG/KG/MIN Dexmedetomidine HCl 400 mcg/ 104 mls @ 7.322 mls/hr 01/04/21 11:00 01/12/21 07:59 Sodium Chloride IV 0.9 mcg/kg/hr TITRATE ASCENCION 32.947 mls/hr Administration Protocol 0.2 MCG/KG/HR Sodium Chloride 100 mls @ 999 mls/hr 01/10/21 09:08 Nacl 0.9% IV MARILU PRN Hypotension Nicardipine HCl 50 mg/ Sodium 250 mls @ 25 mls/hr 01/11/21 09:00 Chloride IV TITR ASCENCION Protocol 5 MG/HR Amino Acids/Electrolytes/Dextrose 1,999.92 mls @ 83.33 mls/hr 01/11/21 20:00 01/11/21 20:31 Tpn Adult IV 01/12/21 19:59 83.33 mls/hr DAILY@1999 [facility] Administration Protocol Insulin Human Regular 0 units 12/28/20 00:00 01/12/21 05:52 Insulin Regular, Human 100 Units/1 Ml SUB-Q Not Given Q6H [facility] Protocol Metoclopramide HCl 5 mg 01/09/21 18:00 01/12/21 06:07 Metoclopramide 10 Mg/2 Ml Inj IV 5 mg Q6HR ASCENCION Administration Multi-Ingred Cream/Lotion/Oil/Oint 1 applic 12/20/20 21:58 01/03/21 01:13 Mineral Oil/Petrolatum, White Ophth Oint 3.5 Gm OU 1 applic Q4HR PRN Administration Dry Eye(s) Ondansetron HCl 4 mg 01/11/21 08:09 Ondansetron 4 Mg/2 Ml Inj IV Q8H PRN Nausea And Vomiting Simple Syrup 15 ml 01/07/21 08:44 Simple Syrup 15 Ml FEEDTUBE PRN PRN Hypoglycemia Simple Syrup 30 ml 01/07/21 08:44 Simple Syrup 15 Ml FEEDTUBE PRN PRN Hypoglycemia Sodium Bicarbonate 325 mg 01/07/21 08:44 Sodium Bicarbonate 325 Mg Tab FEEDTUBE PRN PRN For Clogged Feeding Tube Sodium Chloride 10 ml 12/20/20 22:00 01/11/21 21:41 Sodium Chloride 0.9% 10 Ml Flush Syringe IV 10 ml BID ASCENCION Administration Sodium Chloride 10 ml 12/20/20 16:42 Sodium Chloride 0.9% 10 Ml Flush Syringe IV PRN PRN LINE FLUSH Nutrition/Malnutrition Assess - Dietary Evaluation Nutrition/Malnutrition Findings: Nutrition Notes Start: 12/21/20 09:06 Freq: Status: Active Protocol: Document 01/11/21 11:36 MK (Rec: 01/11/21 11:40 [id number]) Nutrition Notes Initial or Follow up Reassessment Current Diagnosis Acute Kidney Injury,Coronary Artery Disease,Sepsis, Hypertension,Small Bowel Obstruction,Hyperlipidemia Other Pertinent Diagnosis gangrenous small bowel, s/p small bowel ressection, peritonitis Current Diet TPN at 83.33ml/hr + Nepro 10ml /hr Labs/Tests Na 134 K 3.5 BUN 88 Cr 3.5 Pertinent Medications Propofol at 25.242ml/hr ( provides 666 kcal) Regdashawn Weiner Height 6 ft Weight 128.1 kg [place] Body Weight (kg) 80.90 BMI 38.2 Weight Status Obese Subjective/Other Information Day CPN. TF not running at time of visit. Per RN, pt felt nauseous. Pt had HD yesterday . Percent of energy/protein needs met: 100% energy 79% pro (CPN only) Burn Absent Trauma Absent Current % PO Negligible Minimum of two criteria No #2 Nutrition Diagnosis Increased nutrient needs ( specify in comment below) Diagnosis Progress(for reassessment Continues documentation) #1 Nutrition Diagnosis Inadequate oral intake Diagnosis Progress(for reassessment Continues documentation) Is patient on ventilator? Yes Is Patient Ambulatory and/or Out of Bed No REE-([facility]-confined to bed) 2564.928 Kcal/Kg value to use for calculation 14 Approximate Energy Requirements Using 1793 kcal/Kg Calculation Used for Recommendations Kcal/kg Additional Notes Pro needs >1.2g/kg adjBW: > 127g/day Fluid needs per MD. Nutrition Intervention Nutrition Support: Continue CPN at 83.33ml/hr: MVI, MTE, 20 mEq K. Osmolality : 1675. Continue Nepro at 10ml/hr as tolerated. Kcal 1,760 Protein (gm) 100 Carbohydrates (gm) 400 Fat (gm) 0 Fluid (mL) 2,000 Fiber (gm) 0 Goal #1 TF tolerance Goal #2 TF plus TPN to meet nutrient needs as best possible Follow-Up By: 01/12/21 Additional Comments Labs in AM: Bmp, Mg, Phos FU for TF restart and tolerance
--- NOTE | 2021-01-12 09:40 | Electrocardiograph Report ---
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
[2021-01-12] MEDS: FAMOTIDINE 20 MG/2 ML INJ IV SCH (09:49)
--- NOTE | 2021-01-12 09:53 | Progress Note ---
Assessment and Plan 60 y/o male with abdominal catastrophe, s/p ex-lap with open abdomen, ventilated for pain control and support. 01/12/21: Patient getting dialysis today. Continue to control pain, added PRN dilauded on top of scheduled dosing as patient still gets very agitated off diprovan. Will discuss with renal plans for future HD as ID and Infection control are very concerned about the groin catheter. If permanent dialysis then will ask that IR place permcath. if they feel intermittent, then will place IJ and remove femoral vascath. 01/11/21: Will increase pain regimen. Scheduled the dilaudid to q4 and add a fent patch. Would like to avoid drip as we are trying to actively wean patient from mechanical ventilation. Spoke with CM who states [facility] has accepted patient but we are waiting on insurance authorization. HgB is stable this am and reviewed surgery and IR recs. I do no think the area of fluid needs to be sampled. 01/10/21: Spoke with surgery this am about CT findings. Will discuss with IR their thoughts on fluid. Not concerned about infection in that area. Main reason for CT was to see if we could figure out where blood was going as it was coming out of his bottom or NG contents. This is appears to be something small and slow, like a venous issues. Hopefully it has sealed off at this time. HgB is up to 8 this am patient did not get blood on yesterday. Off fent now, will continue to wean Diprovan and Precedex as tolerated. Spoke with CM and asked to send out to [facility]'s but will steal try to aggressively wean. Making good urine, hopeful kidney's will recover. Will ask renal about other ways to remove volume in third spacing (albumin, lasix etc). Prognosis still remains guarded. Continue TPN for now. 01/09/21: Will obtain contrasted CT of abdomen and pelvis to look for potential pockets of blood or bleeding. Spoke with renal and they feel kidneys are recovering but ok with HD tomorrow if needed post dye load. Will attempt to wean Fent more and use prn dilaudid. Will start reglan to help with gut motility. Hopeful to be off TPN soon. Once sedation is off, can start SBT's. CCT 31 minutes. Subjective Date of service: 01/12/21 Principal diagnosis: SBO and necrosis of large part of small intestine Interval history: No acute events. No labs drawn this am. Objective Vital Signs - 12hr 01/11/21 01/11/21 01/11/21 22:00 22:30 23:00 Temperature Pulse Rate 102 H 98 H 97 H Pulse Rate [ From Monitor] Respiratory 20 15 16 Rate Blood Pressure 185/92 175/97 O2 Sat by Pulse 98 97 97 Oximetry 01/11/21 01/11/21 01/11/21 23:30 23:32 23:42 Temperature Pulse Rate 100 H 97 H 102 H Pulse Rate [ From Monitor] Respiratory 15 23 Rate Blood Pressure 184/93 198/104 198/104 O2 Sat by Pulse 98 97 Oximetry 01/12/21 01/12/21 01/12/21 00:00 00:13 00:30 Temperature 98.4 F Pulse Rate 100 H 98 H 97 H Pulse Rate [ 100 H From Monitor] Respiratory 27 H 20 Rate Blood Pressure 198/104 159/87 159/87 O2 Sat by Pulse 97 97 96 Oximetry 01/12/21 01/12/21 01/12/21 01:00 01:30 02:00 Temperature Pulse Rate 98 H 93 H 94 H Pulse Rate [ From Monitor] Respiratory 28 H 23 23 Rate Blood Pressure 154/82 165/88 146/91 O2 Sat by Pulse 97 97 97 Oximetry 01/12/21 01/12/21 01/12/21 02:30 03:00 03:30 Temperature Pulse Rate 95 H 95 H 92 H Pulse Rate [ From Monitor] Respiratory 26 H 28 H 26 H Rate Blood Pressure 164/87 158/88 171/91 O2 Sat by Pulse 98 98 98 Oximetry 01/12/21 01/12/21 01/12/21 04:00 04:30 04:50 Temperature Pulse Rate 96 H 94 H 96 H Pulse Rate [ 93 H From Monitor] Respiratory 27 H 28 H Rate Blood Pressure 172/95 172/95 186/90 O2 Sat by Pulse 98 98 96 Oximetry 01/12/21 01/12/21 01/12/21 05:00 05:30 06:00 Temperature Pulse Rate 93 H 96 H 98 H Pulse Rate [ From Monitor] Respiratory 23 26 H 23 Rate Blood Pressure 186/90 184/90 188/106 O2 Sat by Pulse 98 99 99 Oximetry 01/12/21 01/12/21 01/12/21 06:30 07:00 07:30 Temperature 98.1 F Pulse Rate 94 H 89 82 Pulse Rate [ From Monitor] Respiratory 29 H 29 H 25 H Rate Blood Pressure 188/106 167/98 163/91 O2 Sat by Pulse 99 98 99 Oximetry 01/12/21 01/12/21 01/12/21 08:00 08:30 09:00 Temperature 98.1 F Pulse Rate 76 85 79 Pulse Rate [ 76 From Monitor] Respiratory 24 25 H 24 Rate Blood Pressure 144/75 160/87 147/79 O2 Sat by Pulse 99 99 99 Oximetry Constitutional: comatose (secondary to sedation.), other (critically ill on ventilator) Eyes: non-icteric ENT: oropharynx moist Neck: supple Effort: normal Ascultation: Bilateral: other (coarse BS bilaterally) Cardiovascular: other (tachy, RR; no mrg) Gastrointestinal: other (abdomen open) Integumentary: normal Extremities: no cyanosis, no edema, pink and warm Neurologic: other (sedated) CBC and BMP: 01/13/21 05:00 01/13/21 05:00 ABG, PT/INR, D-dimer: ABG ABG pH 7.311 (7.320-7.450) L 01/11/21 04:00 POC ABG pCO2 49.2 mmHg (32.0-48.0) H 01/11/21 04:00 ABG pCO2 37.9 mm Hg 01/05/21 03:50 POC ABG pO2 90.2 mmHg (83-108) 01/11/21 04:00 ABG pO2 136.8 mm Hg (80.0-90.0) H 01/05/21 03:50 POC ABG HCO3 24.3 01/11/21 04:00 ABG O2 Saturation 96.2 (0-100) 01/11/21 04:00 PT/INR, D-dimer PT 15.4 Sec. (12.2-14.9) H 01/10/21 04:01 INR 1.17 (0.87-1.13) H 01/10/21 04:01 Abnormal lab findings: Abnormal Labs 12/20/20 12/20/20 12/20/20 13:58 13:58 13:58 WBC 41.1 H* RBC 5.59 H Hgb 16.2 H Hct 47.7 H MCV MCHC RDW 15.5 H Plt Count 486 H Seg Neuts % (Manual) Lymphocytes % (Manual) Seg Neutrophils # Man Lymphocytes # (Manual) Monocytes # (Manual) PT INR APTT Fibrinogen ABG pH POC ABG pCO2 POC ABG pO2 ABG pO2 ABG Base Excess ABG Hemoglobin ABG Oxyhemoglobin ABG Sodium ABG Potassium ABG Chloride ABG Glucose Carboxyhemoglobin Sodium 130 L Potassium Chloride 80.7 L Carbon Dioxide BUN 37 H Creatinine Glucose 101 H POC Glucose Lactic Acid 3.20 H* Calcium Ionized Calcium Phosphorus Magnesium AST Alkaline Phosphatase 142 H Total Protein 6.2 L Albumin 2.2 L Triglycerides Arterial Blood Glucose Arterial Blood Ionized Calcium Urine Creatinine Crossmatch 12/20/20 12/20/20 12/20/20 13:58 20:35 21:30 WBC RBC Hgb Hct MCV MCHC RDW Plt Count Seg Neuts % (Manual) Lymphocytes % (Manual) Seg Neutrophils # Man Lymphocytes # (Manual) Monocytes # (Manual) PT INR APTT 49.4 H Fibrinogen ABG pH 7.313 L POC ABG pCO2 POC ABG pO2 ABG pO2 104.4 H ABG Base Excess ABG Hemoglobin ABG Oxyhemoglobin ABG Sodium ABG Potassium ABG Chloride ABG Glucose Carboxyhemoglobin Sodium Potassium Chloride Carbon Dioxide BUN Creatinine Glucose POC Glucose 122 H Lactic Acid Calcium Ionized Calcium Phosphorus Magnesium AST Alkaline Phosphatase Total Protein Albumin Triglycerides Arterial Blood Glucose Arterial Blood Ionized Calcium Urine Creatinine Crossmatch 12/21/20 12/21/20 12/21/20 03:06 08:14 08:14 WBC 23.9 H RBC Hgb Hct MCV MCHC RDW 15.7 H Plt Count Seg Neuts % (Manual) 91.0 H Lymphocytes % (Manual) 3.0 L Seg Neutrophils # Man 21.7 H Lymphocytes # (Manual) 0.7 L Monocytes # (Manual) 1.4 H PT INR APTT Fibrinogen ABG pH 7.464 H POC ABG pCO2 POC ABG pO2 202.9 H ABG pO2 ABG Base Excess ABG Hemoglobin ABG Oxyhemoglobin ABG Sodium 133.7 L ABG Potassium ABG Chloride ABG Glucose 122 H Carboxyhemoglobin Sodium Potassium Chloride Carbon Dioxide BUN 46 H Creatinine Glucose 103 H POC Glucose Lactic Acid Calcium 6.6 L D Ionized Calcium Phosphorus Magnesium AST Alkaline Phosphatase Total Protein 5.4 L Albumin 2.3 L Triglycerides Arterial Blood Glucose 122 H Arterial Blood Ionized Calcium 3.5 L Urine Creatinine Crossmatch 12/21/20 12/21/20 12/22/20 17:18 21:28 04:45 WBC 22.9 H RBC Hgb Hct MCV MCHC RDW 15.7 H Plt Count Seg Neuts % (Manual) Lymphocytes % (Manual) Seg Neutrophils # Man Lymphocytes # (Manual) Monocytes # (Manual) PT INR APTT Fibrinogen ABG pH POC ABG pCO2 POC ABG pO2 ABG pO2 ABG Base Excess ABG Hemoglobin ABG Oxyhemoglobin ABG Sodium ABG Potassium ABG Chloride ABG Glucose Carboxyhemoglobin Sodium Potassium Chloride Carbon Dioxide BUN Creatinine Glucose POC Glucose 108 H Lactic Acid Calcium Ionized Calcium 4.1 L Phosphorus Magnesium AST Alkaline Phosphatase Total Protein Albumin Triglycerides Arterial Blood Glucose Arterial Blood Ionized Calcium Urine Creatinine Crossmatch 12/22/20 12/22/20 12/22/20 04:45 05:00 11:38 WBC RBC Hgb Hct MCV MCHC RDW Plt Count Seg Neuts % (Manual) Lymphocytes % (Manual) Seg Neutrophils # Man Lymphocytes # (Manual) Monocytes # (Manual) PT INR APTT Fibrinogen ABG pH 7.462 H POC ABG pCO2 POC ABG pO2 ABG pO2 ABG Base Excess ABG Hemoglobin ABG Oxyhemoglobin ABG Sodium ABG Potassium ABG Chloride ABG Glucose 118 H Carboxyhemoglobin Sodium 146 H Potassium Chloride Carbon Dioxide BUN 45 H Creatinine Glucose 116 H POC Glucose 115 H Lactic Acid Calcium 6.9 L Ionized Calcium Phosphorus Magnesium AST Alkaline Phosphatase Total Protein Albumin Triglycerides Arterial Blood Glucose 118 H Arterial Blood Ionized Calcium 3.8 L Urine Creatinine Crossmatch 12/22/20 12/23/20 12/23/20 23:26 04:43 04:45 WBC 22.2 H RBC Hgb Hct MCV MCHC RDW 16.1 H Plt Count Seg Neuts % (Manual) Lymphocytes % (Manual) Seg Neutrophils # Man Lymphocytes # (Manual) Monocytes # (Manual) PT INR APTT Fibrinogen ABG pH POC ABG pCO2 POC ABG pO2 ABG pO2 ABG Base Excess ABG Hemoglobin ABG Oxyhemoglobin ABG Sodium 147.4 H ABG Potassium ABG Chloride 112.0 H ABG Glucose 130 H Carboxyhemoglobin 0.4 L Sodium Potassium Chloride Carbon Dioxide BUN Creatinine Glucose POC Glucose 110 H Lactic Acid Calcium Ionized Calcium Phosphorus Magnesium AST Alkaline Phosphatase Total Protein Albumin Triglycerides Arterial Blood Glucose 130 H Arterial Blood Ionized Calcium 3.8 L Urine Creatinine Crossmatch 12/23/20 12/23/20 12/23/20 04:45 05:17 11:22 WBC RBC Hgb Hct MCV MCHC RDW Plt Count Seg Neuts % (Manual) Lymphocytes % (Manual) Seg Neutrophils # Man Lymphocytes # (Manual) Monocytes # (Manual) PT INR APTT Fibrinogen ABG pH POC ABG pCO2 POC ABG pO2 ABG pO2 ABG Base Excess ABG Hemoglobin ABG Oxyhemoglobin ABG Sodium ABG Potassium ABG Chloride ABG Glucose Carboxyhemoglobin Sodium 154 H D Potassium Chloride 110.9 H Carbon Dioxide BUN 54 H Creatinine 1.8 H Glucose 115 H POC Glucose 116 H 130 H Lactic Acid Calcium 7.0 L Ionized Calcium Phosphorus Magnesium AST Alkaline Phosphatase Total Protein Albumin Triglycerides Arterial Blood Glucose Arterial Blood Ionized Calcium Urine Creatinine Crossmatch 12/23/20 12/23/20 12/23/20 12:15 12:15 23:15 WBC RBC Hgb Hct MCV MCHC RDW Plt Count Seg Neuts % (Manual) Lymphocytes % (Manual) Seg Neutrophils # Man Lymphocytes # (Manual) Monocytes # (Manual) PT INR APTT Fibrinogen ABG pH POC ABG pCO2 POC ABG pO2 ABG pO2 ABG Base Excess ABG Hemoglobin ABG Oxyhemoglobin ABG Sodium ABG Potassium ABG Chloride ABG Glucose Carboxyhemoglobin Sodium 154 H Potassium Chloride Carbon Dioxide BUN Creatinine 1.5 H Glucose POC Glucose 132 H Lactic Acid Calcium Ionized Calcium Phosphorus Magnesium AST Alkaline Phosphatase Total Protein Albumin Triglycerides Arterial Blood Glucose Arterial Blood Ionized Calcium Urine Creatinine 78.1 H Crossmatch 12/24/20 12/24/20 12/24/20 04:19 04:30 04:30 WBC 18.3 H RBC Hgb Hct MCV MCHC RDW 16.5 H Plt Count Seg Neuts % (Manual) Lymphocytes % (Manual) Seg Neutrophils # Man Lymphocytes # (Manual) Monocytes # (Manual) PT INR APTT Fibrinogen ABG pH POC ABG pCO2 POC ABG pO2 ABG pO2 ABG Base Excess ABG Hemoglobin ABG Oxyhemoglobin ABG Sodium 149.7 H ABG Potassium ABG Chloride 116.0 H ABG Glucose 180 H Carboxyhemoglobin Sodium 155 H Potassium Chloride 116.1 H Carbon Dioxide BUN 52 H Creatinine 1.5 H Glucose 175 H POC Glucose Lactic Acid Calcium 6.8 L Ionized Calcium Phosphorus Magnesium 3.00 H AST Alkaline Phosphatase Total Protein 5.7 L Albumin 1.8 L Triglycerides Arterial Blood Glucose 180 H Arterial Blood Ionized Calcium 3.7 L Urine Creatinine Crossmatch 12/24/20 12/24/20 12/24/20 05:24 11:21 18:05 WBC RBC Hgb Hct MCV MCHC RDW Plt Count Seg Neuts % (Manual) Lymphocytes % (Manual) Seg Neutrophils # Man Lymphocytes # (Manual) Monocytes # (Manual) PT INR APTT Fibrinogen ABG pH POC ABG pCO2 POC ABG pO2 ABG pO2 ABG Base Excess ABG Hemoglobin ABG Oxyhemoglobin ABG Sodium ABG Potassium ABG Chloride ABG Glucose Carboxyhemoglobin Sodium Potassium Chloride Carbon Dioxide BUN Creatinine Glucose POC Glucose 153 H 154 H 133 H Lactic Acid Calcium Ionized Calcium Phosphorus Magnesium AST Alkaline Phosphatase Total Protein Albumin Triglycerides Arterial Blood Glucose Arterial Blood Ionized Calcium Urine Creatinine Crossmatch 12/25/20 12/25/20 12/25/20 04:00 07:00 07:00 WBC 17.6 H RBC Hgb Hct MCV MCHC 31 L RDW 16.0 H Plt Count Seg Neuts % (Manual) Lymphocytes % (Manual) Seg Neutrophils # Man Lymphocytes # (Manual) Monocytes # (Manual) PT INR APTT Fibrinogen ABG pH POC ABG pCO2 POC ABG pO2 ABG pO2 ABG Base Excess ABG Hemoglobin ABG Oxyhemoglobin ABG Sodium 152.5 H ABG Potassium ABG Chloride 119.0 H ABG Glucose 136 H Carboxyhemoglobin Sodium Potassium Chloride Carbon Dioxide BUN Creatinine Glucose POC Glucose Lactic Acid Calcium Ionized Calcium Phosphorus Magnesium 2.70 H AST Alkaline Phosphatase Total Protein Albumin Triglycerides Arterial Blood Glucose 136 H Arterial Blood Ionized Calcium 3.7 L Urine Creatinine Crossmatch 12/25/20 12/25/20 12/25/20 07:00 11:24 16:32 WBC RBC Hgb Hct MCV MCHC RDW Plt Count Seg Neuts % (Manual) Lymphocytes % (Manual) Seg Neutrophils # Man Lymphocytes # (Manual) Monocytes # (Manual) PT INR APTT Fibrinogen ABG pH POC ABG pCO2 POC ABG pO2 ABG pO2 ABG Base Excess ABG Hemoglobin ABG Oxyhemoglobin ABG Sodium ABG Potassium ABG Chloride ABG Glucose Carboxyhemoglobin Sodium 156 H Potassium Chloride 118.0 H Carbon Dioxide BUN 44 H Creatinine 1.7 H Glucose 126 H POC Glucose 110 H 126 H Lactic Acid Calcium 6.9 L Ionized Calcium Phosphorus Magnesium AST Alkaline Phosphatase Total Protein Albumin Triglycerides Arterial Blood Glucose Arterial Blood Ionized Calcium Urine Creatinine Crossmatch 12/25/20 12/25/20 12/26/20 18:18 23:23 03:30 WBC RBC Hgb Hct MCV MCHC RDW Plt Count Seg Neuts % (Manual) Lymphocytes % (Manual) Seg Neutrophils # Man Lymphocytes # (Manual) Monocytes # (Manual) PT INR APTT Fibrinogen ABG pH POC ABG pCO2 POC ABG pO2 ABG pO2 ABG Base Excess ABG Hemoglobin 11.8 L ABG Oxyhemoglobin ABG Sodium ABG Potassium 4.7 H ABG Chloride 114.0 H ABG Glucose 132 H Carboxyhemoglobin Sodium 151 H Potassium Chloride 114.3 H Carbon Dioxide BUN 51 H Creatinine 2.6 H D Glucose 122 H POC Glucose 115 H Lactic Acid Calcium 6.4 L Ionized Calcium Phosphorus Magnesium AST Alkaline Phosphatase Total Protein Albumin Triglycerides Arterial Blood Glucose 132 H Arterial Blood Ionized Calcium 3.6 L Urine Creatinine Crossmatch 12/26/20 12/26/20 12/26/20 04:55 06:01 06:01 WBC 21.6 H RBC Hgb Hct MCV MCHC 31 L RDW 16.5 H Plt Count 136 L Seg Neuts % (Manual) Lymphocytes % (Manual) Seg Neutrophils # Man Lymphocytes # (Manual) Monocytes # (Manual) PT INR APTT Fibrinogen ABG pH POC ABG pCO2 POC ABG pO2 ABG pO2 ABG Base Excess ABG Hemoglobin ABG Oxyhemoglobin ABG Sodium ABG Potassium ABG Chloride ABG Glucose Carboxyhemoglobin Sodium 173 H* D Potassium 6.1 H* D Chloride 137.0 H Carbon Dioxide BUN 73 H Creatinine 3.8 H Glucose 125 H POC Glucose 112 H Lactic Acid Calcium 6.2 L Ionized Calcium Phosphorus 5.70 H D Magnesium 2.90 H AST Alkaline Phosphatase Total Protein Albumin Triglycerides Arterial Blood Glucose Arterial Blood Ionized Calcium Urine Creatinine Crossmatch 12/26/20 12/26/20 12/26/20 08:33 11:19 22:00 WBC RBC Hgb Hct MCV MCHC RDW Plt Count Seg Neuts % (Manual) Lymphocytes % (Manual) Seg Neutrophils # Man Lymphocytes # (Manual) Monocytes # (Manual) PT INR APTT Fibrinogen ABG pH POC ABG pCO2 POC ABG pO2 ABG pO2 ABG Base Excess ABG Hemoglobin ABG Oxyhemoglobin ABG Sodium ABG Potassium ABG Chloride ABG Glucose Carboxyhemoglobin Sodium 147 H D Potassium 5.8 H D Chloride 108.8 H Carbon Dioxide 21 L BUN 68 H 68 H Creatinine 3.8 H 4.1 H Glucose 144 H 154 H POC Glucose 144 H Lactic Acid Calcium 6.5 L 5.8 L* Ionized Calcium Phosphorus Magnesium AST 215 H Alkaline Phosphatase Total Protein 4.7 L Albumin 1.5 L Triglycerides Arterial Blood Glucose Arterial Blood Ionized Calcium Urine Creatinine Crossmatch 12/26/20 12/26/20 12/27/20 23:13 Unknown 00:25 WBC RBC Hgb 11.1 L Hct MCV MCHC RDW Plt Count Seg Neuts % (Manual) Lymphocytes % (Manual) Seg Neutrophils # Man Lymphocytes # (Manual) Monocytes # (Manual) PT INR APTT Fibrinogen ABG pH POC ABG pCO2 POC ABG pO2 ABG pO2 ABG Base Excess ABG Hemoglobin ABG Oxyhemoglobin ABG Sodium ABG Potassium ABG Chloride ABG Glucose Carboxyhemoglobin Sodium Potassium Chloride Carbon Dioxide BUN Creatinine Glucose POC Glucose 163 H Lactic Acid Calcium Ionized Calcium Phosphorus 5.60 H Magnesium AST Alkaline Phosphatase Total Protein Albumin Triglycerides Arterial Blood Glucose Arterial Blood Ionized Calcium Urine Creatinine Crossmatch 12/27/20 12/27/20 12/27/20 02:57 04:15 04:15 WBC 28.5 H RBC Hgb 11.2 L Hct MCV MCHC 31 L RDW 16.5 H Plt Count 130 L Seg Neuts % (Manual) Lymphocytes % (Manual) Seg Neutrophils # Man Lymphocytes # (Manual) Monocytes # (Manual) PT INR APTT Fibrinogen ABG pH 7.238 L POC ABG pCO2 POC ABG pO2 139.1 H ABG pO2 ABG Base Excess ABG Hemoglobin 11.2 L ABG Oxyhemoglobin ABG Sodium 133.8 L ABG Potassium 5.2 H ABG Chloride ABG Glucose 182 H Carboxyhemoglobin Sodium 136 L Potassium 6.0 H Chloride Carbon Dioxide 18 L BUN 68 H Creatinine 4.1 H Glucose 166 H POC Glucose Lactic Acid Calcium 6.2 L Ionized Calcium Phosphorus 7.30 H D Magnesium AST Alkaline Phosphatase Total Protein Albumin Triglycerides 164 H Arterial Blood Glucose 182 H Arterial Blood Ionized Calcium 3.4 L Urine Creatinine Crossmatch 12/27/20 12/27/20 12/27/20 04:50 10:51 11:17 WBC RBC Hgb Hct MCV MCHC RDW Plt Count Seg Neuts % (Manual) Lymphocytes % (Manual) Seg Neutrophils # Man Lymphocytes # (Manual) Monocytes # (Manual) PT INR APTT Fibrinogen ABG pH POC ABG pCO2 POC ABG pO2 ABG pO2 ABG Base Excess ABG Hemoglobin ABG Oxyhemoglobin ABG Sodium ABG Potassium ABG Chloride ABG Glucose Carboxyhemoglobin Sodium Potassium Chloride Carbon Dioxide BUN Creatinine Glucose POC Glucose 140 H 113 H 154 H Lactic Acid Calcium Ionized Calcium Phosphorus Magnesium AST Alkaline Phosphatase Total Protein Albumin Triglycerides Arterial Blood Glucose Arterial Blood Ionized Calcium Urine Creatinine Crossmatch 12/27/20 12/27/20 12/27/20 12:40 14:40 23:17 WBC RBC Hgb Hct MCV MCHC RDW Plt Count Seg Neuts % (Manual) Lymphocytes % (Manual) Seg Neutrophils # Man Lymphocytes # (Manual) Monocytes # (Manual) PT INR APTT Fibrinogen ABG pH POC ABG pCO2 POC ABG pO2 ABG pO2 ABG Base Excess ABG Hemoglobin ABG Oxyhemoglobin ABG Sodium ABG Potassium ABG Chloride ABG Glucose Carboxyhemoglobin Sodium 135 L Potassium Chloride Carbon Dioxide 21 L BUN 62 H Creatinine 3.8 H Glucose 132 H POC Glucose 130 H Lactic Acid Calcium 5.6 L* Ionized Calcium 3.3 L Phosphorus Magnesium AST Alkaline Phosphatase Total Protein Albumin Triglycerides Arterial Blood Glucose Arterial Blood Ionized Calcium Urine Creatinine Crossmatch 12/28/20 12/28/20 12/28/20 05:36 07:08 07:28 WBC 27.2 H RBC 3.50 L Hgb 9.6 L Hct 30.8 L MCV MCHC 31 L RDW 16.1 H Plt Count 111 L Seg Neuts % (Manual) 95.0 H Lymphocytes % (Manual) Seg Neutrophils # Man 25.8 H Lymphocytes # (Manual) 0.0 L Monocytes # (Manual) 1.1 H PT INR APTT Fibrinogen ABG pH 7.200 L POC ABG pCO2 POC ABG pO2 67.2 L ABG pO2 ABG Base Excess ABG Hemoglobin 10.3 L ABG Oxyhemoglobin 89.6 L ABG Sodium 127.8 L ABG Potassium 5.1 H ABG Chloride ABG Glucose 132 H Carboxyhemoglobin 0.4 L Sodium Potassium Chloride Carbon Dioxide BUN Creatinine Glucose POC Glucose 128 H Lactic Acid Calcium Ionized Calcium Phosphorus Magnesium AST Alkaline Phosphatase Total Protein Albumin Triglycerides Arterial Blood Glucose 132 H Arterial Blood Ionized Calcium 3.5 L Urine Creatinine Crossmatch 12/28/20 12/28/20 12/28/20 07:28 11:37 13:25 WBC RBC Hgb Hct MCV MCHC RDW Plt Count Seg Neuts % (Manual) Lymphocytes % (Manual) Seg Neutrophils # Man Lymphocytes # (Manual) Monocytes # (Manual) PT INR APTT Fibrinogen ABG pH POC ABG pCO2 POC ABG pO2 ABG pO2 ABG Base Excess ABG Hemoglobin ABG Oxyhemoglobin ABG Sodium ABG Potassium ABG Chloride ABG Glucose Carboxyhemoglobin Sodium 131 L 133 L Potassium 5.9 H 5.1 H Chloride 97.1 L Carbon Dioxide 15 L 21 L BUN 70 H 77 H Creatinine 4.0 H 4.4 H Glucose 118 H 140 H POC Glucose 135 H Lactic Acid Calcium 6.3 L 6.3 L Ionized Calcium Phosphorus 7.10 H Magnesium AST 144 H Alkaline Phosphatase Total Protein 4.8 L Albumin 1.3 L Triglycerides Arterial Blood Glucose Arterial Blood Ionized Calcium Urine Creatinine Crossmatch 12/28/20 12/28/20 12/29/20 16:38 23:28 03:08 WBC RBC Hgb Hct MCV MCHC RDW Plt Count Seg Neuts % (Manual) Lymphocytes % (Manual) Seg Neutrophils # Man Lymphocytes # (Manual) Monocytes # (Manual) PT INR APTT Fibrinogen ABG pH 7.301 L POC ABG pCO2 POC ABG pO2 151.1 H ABG pO2 ABG Base Excess ABG Hemoglobin 8.7 L ABG Oxyhemoglobin 98.2 H ABG Sodium 123.4 L ABG Potassium ABG Chloride 97.0 L ABG Glucose 144 H Carboxyhemoglobin Sodium Potassium Chloride Carbon Dioxide BUN Creatinine Glucose POC Glucose 140 H 134 H Lactic Acid Calcium Ionized Calcium Phosphorus Magnesium AST Alkaline Phosphatase Total Protein Albumin Triglycerides Arterial Blood Glucose 144 H Arterial Blood Ionized Calcium 3.4 L Urine Creatinine Crossmatch 12/29/20 12/29/20 12/29/20 05:20 05:20 06:01 WBC 21.0 H RBC 2.89 L Hgb 8.1 L Hct 25.5 L MCV MCHC RDW 16.1 H Plt Count 124 L Seg Neuts % (Manual) Lymphocytes % (Manual) Seg Neutrophils # Man Lymphocytes # (Manual) Monocytes # (Manual) PT INR APTT Fibrinogen ABG pH POC ABG pCO2 POC ABG pO2 ABG pO2 ABG Base Excess ABG Hemoglobin ABG Oxyhemoglobin ABG Sodium ABG Potassium ABG Chloride ABG Glucose Carboxyhemoglobin Sodium 131 L Potassium Chloride 93.4 L Carbon Dioxide BUN 79 H Creatinine 4.7 H Glucose 122 H POC Glucose 108 H Lactic Acid Calcium 5.5 L* Ionized Calcium Phosphorus 5.70 H Magnesium 1.60 L AST Alkaline Phosphatase Total Protein Albumin Triglycerides Arterial Blood Glucose Arterial Blood Ionized Calcium Urine Creatinine Crossmatch 12/29/20 12/29/20 12/29/20 10:04 11:27 17:31 WBC RBC Hgb Hct MCV MCHC RDW Plt Count Seg Neuts % (Manual) Lymphocytes % (Manual) Seg Neutrophils # Man Lymphocytes # (Manual) Monocytes # (Manual) PT INR APTT Fibrinogen ABG pH POC ABG pCO2 POC ABG pO2 ABG pO2 ABG Base Excess ABG Hemoglobin ABG Oxyhemoglobin ABG Sodium ABG Potassium ABG Chloride ABG Glucose Carboxyhemoglobin Sodium Potassium Chloride Carbon Dioxide BUN Creatinine Glucose POC Glucose 107 H 112 H 110 H Lactic Acid Calcium Ionized Calcium Phosphorus Magnesium AST Alkaline Phosphatase Total Protein Albumin Triglycerides Arterial Blood Glucose Arterial Blood Ionized Calcium Urine Creatinine Crossmatch 12/30/20 12/30/20 12/30/20 03:31 08:06 17:39 WBC RBC Hgb Hct MCV MCHC RDW Plt Count Seg Neuts % (Manual) Lymphocytes % (Manual) Seg Neutrophils # Man Lymphocytes # (Manual) Monocytes # (Manual) PT INR APTT Fibrinogen ABG pH 7.261 L POC ABG pCO2 POC ABG pO2 123.1 H ABG pO2 ABG Base Excess ABG Hemoglobin 8.7 L ABG Oxyhemoglobin ABG Sodium 123.2 L ABG Potassium ABG Chloride 96.0 L ABG Glucose 112 H Carboxyhemoglobin Sodium 128 L Potassium Chloride 90.7 L Carbon Dioxide 21 L BUN 86 H Creatinine 4.9 H Glucose 107 H POC Glucose 134 H Lactic Acid Calcium 6.2 L Ionized Calcium Phosphorus 5.30 H Magnesium 1.50 L AST Alkaline Phosphatase Total Protein Albumin Triglycerides Arterial Blood Glucose 112 H Arterial Blood Ionized Calcium 3.2 L Urine Creatinine Crossmatch 12/30/20 12/31/20 12/31/20 22:45 02:14 04:40 WBC RBC Hgb Hct MCV MCHC RDW Plt Count Seg Neuts % (Manual) Lymphocytes % (Manual) Seg Neutrophils # Man Lymphocytes # (Manual) Monocytes # (Manual) PT INR APTT Fibrinogen ABG pH 7.267 L POC ABG pCO2 POC ABG pO2 ABG pO2 ABG Base Excess ABG Hemoglobin 8.0 L ABG Oxyhemoglobin 93.7 L ABG Sodium ABG Potassium ABG Chloride 95.0 L ABG Glucose 108 H Carboxyhemoglobin 1.7 H Sodium 126 L Potassium Chloride 90.3 L Carbon Dioxide 20 L BUN 70 H Creatinine 4.3 H Glucose 209 H POC Glucose 109 H Lactic Acid Calcium 6.6 L Ionized Calcium Phosphorus 4.70 H Magnesium 1.60 L AST Alkaline Phosphatase Total Protein Albumin Triglycerides 157 H Arterial Blood Glucose 108 H Arterial Blood Ionized Calcium 3.7 L Urine Creatinine Crossmatch 12/31/20 12/31/20 01/01/21 16:23 23:21 04:00 WBC 18.0 H RBC 2.75 L Hgb 7.7 L Hct 23.9 L MCV MCHC RDW 15.6 H Plt Count Seg Neuts % (Manual) 91.0 H Lymphocytes % (Manual) 6.0 L Seg Neutrophils # Man 16.4 H Lymphocytes # (Manual) 1.1 L Monocytes # (Manual) PT INR APTT Fibrinogen ABG pH 7.264 L POC ABG pCO2 POC ABG pO2 74.8 L ABG pO2 ABG Base Excess ABG Hemoglobin 7.1 L ABG Oxyhemoglobin 92.1 L ABG Sodium 124.9 L ABG Potassium ABG Chloride 95.0 L ABG Glucose 111 H Carboxyhemoglobin 1.7 H Sodium Potassium Chloride Carbon Dioxide BUN Creatinine Glucose POC Glucose 125 H Lactic Acid Calcium Ionized Calcium Phosphorus Magnesium AST Alkaline Phosphatase Total Protein Albumin Triglycerides Arterial Blood Glucose 111 H Arterial Blood Ionized Calcium 4.0 L Urine Creatinine Crossmatch 01/01/21 01/01/21 01/01/21 05:50 13:41 15:55 WBC RBC Hgb Hct MCV MCHC RDW Plt Count Seg Neuts % (Manual) Lymphocytes % (Manual) Seg Neutrophils # Man Lymphocytes # (Manual) Monocytes # (Manual) PT INR APTT Fibrinogen ABG pH 7.148 L 7.207 L POC ABG pCO2 53.1 H POC ABG pO2 57.3 L 138.4 H ABG pO2 ABG Base Excess ABG Hemoglobin 9.0 L 8.3 L ABG Oxyhemoglobin 83.2 L ABG Sodium 126.2 L 124.5 L ABG Potassium ABG Chloride 95.0 L 95.0 L ABG Glucose 96 H 120 H Carboxyhemoglobin Sodium 131 L Potassium Chloride 93.3 L Carbon Dioxide 21 L BUN 67 H Creatinine 4.2 H Glucose POC Glucose Lactic Acid Calcium 7.1 L Ionized Calcium Phosphorus Magnesium AST 60 H Alkaline Phosphatase Total Protein 4.8 L Albumin 1.4 L Triglycerides Arterial Blood Glucose 96 H 120 H Arterial Blood Ionized Calcium 4.1 L 3.9 L Urine Creatinine Crossmatch 01/01/21 01/01/21 01/02/21 17:09 23:24 03:47 WBC RBC Hgb Hct MCV MCHC RDW Plt Count Seg Neuts % (Manual) Lymphocytes % (Manual) Seg Neutrophils # Man Lymphocytes # (Manual) Monocytes # (Manual) PT INR APTT Fibrinogen ABG pH 7.276 L POC ABG pCO2 POC ABG pO2 173.6 H ABG pO2 ABG Base Excess ABG Hemoglobin 7 L ABG Oxyhemoglobin ABG Sodium 122.4 L ABG Potassium ABG Chloride 94.0 L ABG Glucose 118 H Carboxyhemoglobin Sodium Potassium Chloride Carbon Dioxide BUN Creatinine Glucose POC Glucose 124 H 119 H Lactic Acid Calcium Ionized Calcium Phosphorus Magnesium AST Alkaline Phosphatase Total Protein Albumin Triglycerides Arterial Blood Glucose 118 H Arterial Blood Ionized Calcium 4.0 L Urine Creatinine Crossmatch 01/02/21 01/02/21 01/02/21 05:33 08:00 08:00 WBC 19.7 H RBC 2.53 L Hgb 7.1 L Hct 22.0 L MCV MCHC RDW 16.4 H Plt Count Seg Neuts % (Manual) Lymphocytes % (Manual) Seg Neutrophils # Man Lymphocytes # (Manual) Monocytes # (Manual) PT INR APTT Fibrinogen ABG pH POC ABG pCO2 POC ABG pO2 ABG pO2 ABG Base Excess ABG Hemoglobin ABG Oxyhemoglobin ABG Sodium ABG Potassium ABG Chloride ABG Glucose Carboxyhemoglobin Sodium 127 L Potassium Chloride 89.3 L Carbon Dioxide 19 L BUN 82 H Creatinine 5.0 H Glucose 103 H POC Glucose 107 H Lactic Acid Calcium 7.8 L Ionized Calcium Phosphorus 6.40 H Magnesium AST 47 H Alkaline Phosphatase Total Protein 5.0 L Albumin 1.6 L Triglycerides Arterial Blood Glucose Arterial Blood Ionized Calcium Urine Creatinine Crossmatch 01/02/21 01/03/21 01/03/21 17:25 07:56 09:47 WBC 17.7 H RBC 2.19 L Hgb 6.2 L Hct 18.5 L* MCV MCHC RDW 16.1 H Plt Count Seg Neuts % (Manual) Lymphocytes % (Manual) Seg Neutrophils # Man Lymphocytes # (Manual) Monocytes # (Manual) PT INR APTT Fibrinogen ABG pH POC ABG pCO2 POC ABG pO2 ABG pO2 ABG Base Excess ABG Hemoglobin ABG Oxyhemoglobin ABG Sodium ABG Potassium ABG Chloride ABG Glucose Carboxyhemoglobin Sodium 130 L Potassium 3.5 L Chloride 90.3 L Carbon Dioxide BUN 68 H Creatinine 3.9 H Glucose 103 H POC Glucose 116 H Lactic Acid Calcium 8.0 L Ionized Calcium Phosphorus 4.80 H D Magnesium AST Alkaline Phosphatase Total Protein Albumin Triglycerides Arterial Blood Glucose Arterial Blood Ionized Calcium Urine Creatinine Crossmatch 01/03/21 01/03/21 01/04/21 11:00 19:00 03:12 WBC 17.0 H RBC 2.51 L Hgb 7.1 L Hct 21.5 L MCV MCHC RDW 16.6 H Plt Count Seg Neuts % (Manual) Lymphocytes % (Manual) Seg Neutrophils # Man Lymphocytes # (Manual) Monocytes # (Manual) PT INR APTT Fibrinogen ABG pH 7.463 H POC ABG pCO2 POC ABG pO2 72.2 L ABG pO2 ABG Base Excess ABG Hemoglobin 6.2 L ABG Oxyhemoglobin 91.8 L ABG Sodium 128.4 L ABG Potassium 3.3 L ABG Chloride 96.0 L ABG Glucose 112 H Carboxyhemoglobin Sodium Potassium Chloride Carbon Dioxide BUN Creatinine Glucose POC Glucose Lactic Acid Calcium Ionized Calcium Phosphorus Magnesium AST Alkaline Phosphatase Total Protein Albumin Triglycerides Arterial Blood Glucose 112 H Arterial Blood Ionized Calcium 4.3 L Urine Creatinine Crossmatch See Detail 01/04/21 01/04/21 01/04/21 05:16 06:20 06:20 WBC 18.5 H RBC 2.53 L Hgb 7.4 L Hct 21.9 L MCV MCHC RDW 15.8 H Plt Count Seg Neuts % (Manual) Lymphocytes % (Manual) Seg Neutrophils # Man Lymphocytes # (Manual) Monocytes # (Manual) PT INR APTT Fibrinogen ABG pH POC ABG pCO2 POC ABG pO2 ABG pO2 ABG Base Excess ABG Hemoglobin ABG Oxyhemoglobin ABG Sodium ABG Potassium ABG Chloride ABG Glucose Carboxyhemoglobin Sodium 135 L Potassium Chloride 95.2 L Carbon Dioxide BUN 56 H Creatinine 3.2 H Glucose 109 H POC Glucose 123 H Lactic Acid Calcium 7.6 L Ionized Calcium Phosphorus Magnesium AST Alkaline Phosphatase Total Protein Albumin Triglycerides Arterial Blood Glucose Arterial Blood Ionized Calcium Urine Creatinine Crossmatch 01/05/21 01/05/21 01/05/21 03:50 07:22 07:22 WBC 23.8 H RBC 2.93 L Hgb 8.2 L Hct 25.1 L MCV MCHC RDW 16.5 H Plt Count Seg Neuts % (Manual) Lymphocytes % (Manual) Seg Neutrophils # Man Lymphocytes # (Manual) Monocytes # (Manual) PT INR APTT Fibrinogen ABG pH POC ABG pCO2 POC ABG pO2 ABG pO2 136.8 H ABG Base Excess -2.3 L ABG Hemoglobin 6.9 L ABG Oxyhemoglobin ABG Sodium ABG Potassium ABG Chloride ABG Glucose Carboxyhemoglobin Sodium 134 L Potassium Chloride 93.3 L Carbon Dioxide BUN 77 H Creatinine 4.2 H Glucose 105 H POC Glucose Lactic Acid Calcium Ionized Calcium Phosphorus 4.90 H D Magnesium AST Alkaline Phosphatase Total Protein Albumin Triglycerides Arterial Blood Glucose Arterial Blood Ionized Calcium Urine Creatinine Crossmatch 01/05/21 01/05/21 01/05/21 11:02 14:06 15:37 WBC RBC Hgb Hct MCV MCHC RDW Plt Count Seg Neuts % (Manual) Lymphocytes % (Manual) Seg Neutrophils # Man Lymphocytes # (Manual) Monocytes # (Manual) PT INR APTT Fibrinogen ABG pH POC ABG pCO2 POC ABG pO2 332.3 H ABG pO2 ABG Base Excess ABG Hemoglobin 7.7 L ABG Oxyhemoglobin 98.7 H ABG Sodium 131.0 L ABG Potassium 3.3 L ABG Chloride 97.0 L ABG Glucose 118 H Carboxyhemoglobin Sodium Potassium Chloride Carbon Dioxide BUN Creatinine Glucose POC Glucose 118 H 111 H Lactic Acid Calcium Ionized Calcium Phosphorus Magnesium AST Alkaline Phosphatase Total Protein Albumin Triglycerides Arterial Blood Glucose 118 H Arterial Blood Ionized Calcium 4.4 L Urine Creatinine Crossmatch 01/05/21 01/06/21 01/06/21 23:18 04:00 04:20 WBC RBC Hgb Hct MCV MCHC RDW Plt Count Seg Neuts % (Manual) Lymphocytes % (Manual) Seg Neutrophils # Man Lymphocytes # (Manual) Monocytes # (Manual) PT INR APTT Fibrinogen ABG pH POC ABG pCO2 POC ABG pO2 230.5 H ABG pO2 ABG Base Excess ABG Hemoglobin 7.9 L ABG Oxyhemoglobin 98.5 H ABG Sodium 129.4 L ABG Potassium ABG Chloride 97.0 L ABG Glucose 117 H Carboxyhemoglobin Sodium 133 L Potassium Chloride 94.4 L Carbon Dioxide BUN 62 H Creatinine 3.6 H Glucose 110 H POC Glucose 110 H Lactic Acid Calcium 7.8 L Ionized Calcium Phosphorus Magnesium AST Alkaline Phosphatase Total Protein Albumin Triglycerides Arterial Blood Glucose 117 H Arterial Blood Ionized Calcium 4.5 L Urine Creatinine Crossmatch 01/06/21 01/06/21 01/06/21 05:28 09:00 11:00 WBC 15.2 H RBC 2.18 L Hgb 6.5 L Hct 21.8 L MCV 100 H MCHC 30 L RDW 18.5 H Plt Count Seg Neuts % (Manual) Lymphocytes % (Manual) Seg Neutrophils # Man Lymphocytes # (Manual) Monocytes # (Manual) PT INR APTT Fibrinogen ABG pH POC ABG pCO2 POC ABG pO2 ABG pO2 ABG Base Excess ABG Hemoglobin ABG Oxyhemoglobin ABG Sodium ABG Potassium ABG Chloride ABG Glucose Carboxyhemoglobin Sodium Potassium Chloride Carbon Dioxide BUN Creatinine Glucose POC Glucose 109 H Lactic Acid Calcium Ionized Calcium Phosphorus Magnesium AST Alkaline Phosphatase Total Protein Albumin Triglycerides Arterial Blood Glucose Arterial Blood Ionized Calcium Urine Creatinine Crossmatch See Detail 01/06/21 01/06/21 01/07/21 11:32 23:44 03:10 WBC 15.3 H RBC 2.30 L Hgb 6.7 L Hct 20.1 L MCV MCHC RDW 16.6 H Plt Count Seg Neuts % (Manual) Lymphocytes % (Manual) Seg Neutrophils # Man Lymphocytes # (Manual) Monocytes # (Manual) PT INR APTT Fibrinogen ABG pH POC ABG pCO2 POC ABG pO2 ABG pO2 ABG Base Excess ABG Hemoglobin ABG Oxyhemoglobin ABG Sodium ABG Potassium ABG Chloride ABG Glucose Carboxyhemoglobin Sodium Potassium Chloride Carbon Dioxide BUN Creatinine Glucose POC Glucose 113 H 118 H Lactic Acid Calcium Ionized Calcium Phosphorus Magnesium AST Alkaline Phosphatase Total Protein Albumin Triglycerides Arterial Blood Glucose Arterial Blood Ionized Calcium Urine Creatinine Crossmatch 01/07/21 01/07/21 01/07/21 03:10 04:17 05:06 WBC RBC Hgb Hct MCV MCHC RDW Plt Count Seg Neuts % (Manual) Lymphocytes % (Manual) Seg Neutrophils # Man Lymphocytes # (Manual) Monocytes # (Manual) PT INR APTT Fibrinogen ABG pH 7.272 L POC ABG pCO2 50.1 H POC ABG pO2 ABG pO2 ABG Base Excess ABG Hemoglobin 8.4 L ABG Oxyhemoglobin ABG Sodium 128.6 L ABG Potassium ABG Chloride 95.0 L ABG Glucose 109 H Carboxyhemoglobin Sodium 133 L Potassium Chloride 93.6 L Carbon Dioxide BUN 85 H Creatinine 3.9 H Glucose 112 H POC Glucose 106 H Lactic Acid Calcium Ionized Calcium Phosphorus 4.70 H D Magnesium AST Alkaline Phosphatase Total Protein Albumin Triglycerides Arterial Blood Glucose 109 H Arterial Blood Ionized Calcium Urine Creatinine Crossmatch 01/07/21 01/07/21 01/07/21 14:05 16:00 23:25 WBC RBC Hgb 8.1 L Hct 24.2 L MCV MCHC RDW Plt Count Seg Neuts % (Manual) Lymphocytes % (Manual) Seg Neutrophils # Man Lymphocytes # (Manual) Monocytes # (Manual) PT INR APTT Fibrinogen ABG pH POC ABG pCO2 POC ABG pO2 ABG pO2 ABG Base Excess ABG Hemoglobin 7.2 L ABG Oxyhemoglobin ABG Sodium 127.3 L ABG Potassium ABG Chloride 96.0 L ABG Glucose 98 H Carboxyhemoglobin Sodium Potassium Chloride Carbon Dioxide BUN Creatinine Glucose POC Glucose 106 H Lactic Acid Calcium Ionized Calcium Phosphorus Magnesium AST Alkaline Phosphatase Total Protein Albumin Triglycerides Arterial Blood Glucose 98 H Arterial Blood Ionized Calcium Urine Creatinine Crossmatch 01/08/21 01/08/21 01/08/21 03:22 05:30 23:22 WBC RBC Hgb Hct MCV MCHC RDW Plt Count Seg Neuts % (Manual) Lymphocytes % (Manual) Seg Neutrophils # Man Lymphocytes # (Manual) Monocytes # (Manual) PT INR APTT Fibrinogen ABG pH POC ABG pCO2 POC ABG pO2 71.3 L ABG pO2 ABG Base Excess ABG Hemoglobin 8.7 L ABG Oxyhemoglobin 92.2 L ABG Sodium 125.9 L ABG Potassium ABG Chloride 96.0 L ABG Glucose 124 H Carboxyhemoglobin Sodium Potassium Chloride Carbon Dioxide BUN Creatinine Glucose POC Glucose 118 H 110 H Lactic Acid Calcium Ionized Calcium Phosphorus Magnesium AST Alkaline Phosphatase Total Protein Albumin Triglycerides Arterial Blood Glucose 124 H Arterial Blood Ionized Calcium Urine Creatinine Crossmatch 01/08/21 01/08/21 01/09/21 Unknown Unknown 08:45 WBC 15.2 H RBC 2.62 L Hgb 7.6 L Hct 22.7 L MCV MCHC RDW 16.7 H Plt Count Seg Neuts % (Manual) 95.0 H Lymphocytes % (Manual) 3.0 L Seg Neutrophils # Man 14.4 H Lymphocytes # (Manual) 0.5 L Monocytes # (Manual) PT INR APTT Fibrinogen ABG pH POC ABG pCO2 POC ABG pO2 ABG pO2 ABG Base Excess ABG Hemoglobin ABG Oxyhemoglobin ABG Sodium ABG Potassium ABG Chloride ABG Glucose Carboxyhemoglobin Sodium 129 L 129 L Potassium Chloride 91.2 L 92.7 L Carbon Dioxide 21 L 19 L BUN 91 H 105 H Creatinine 4.0 H 4.4 H Glucose 115 H 107 H POC Glucose Lactic Acid Calcium Ionized Calcium Phosphorus 5.00 H Magnesium AST Alkaline Phosphatase Total Protein 5.3 L Albumin 1.6 L Triglycerides 166 H Arterial Blood Glucose Arterial Blood Ionized Calcium Urine Creatinine Crossmatch 01/09/21 01/09/21 01/10/21 10:10 23:51 04:00 WBC 14.1 H RBC 2.50 L Hgb 7.2 L Hct 21.6 L MCV MCHC RDW 16.5 H Plt Count Seg Neuts % (Manual) 92.0 H Lymphocytes % (Manual) 2.0 L Seg Neutrophils # Man 13.0 H Lymphocytes # (Manual) 0.3 L Monocytes # (Manual) PT INR APTT Fibrinogen ABG pH 7.273 L POC ABG pCO2 POC ABG pO2 ABG pO2 ABG Base Excess ABG Hemoglobin 8.7 L ABG Oxyhemoglobin ABG Sodium 126.2 L ABG Potassium 4.8 H ABG Chloride 96.0 L ABG Glucose 160 H Carboxyhemoglobin Sodium Potassium Chloride Carbon Dioxide BUN Creatinine Glucose POC Glucose 154 H Lactic Acid Calcium Ionized Calcium Phosphorus Magnesium AST Alkaline Phosphatase Total Protein Albumin Triglycerides Arterial Blood Glucose 160 H Arterial Blood Ionized Calcium Urine Creatinine Crossmatch 01/10/21 01/10/21 01/10/21 04:01 04:01 04:01 WBC 12.6 H RBC 2.89 L Hgb 8.1 L Hct 24.9 L MCV MCHC RDW 16.6 H Plt Count Seg Neuts % (Manual) 95.0 H Lymphocytes % (Manual) 3.0 L Seg Neutrophils # Man 12.0 H Lymphocytes # (Manual) 0.4 L Monocytes # (Manual) PT 15.4 H INR 1.17 H APTT 40.2 H Fibrinogen 817 H ABG pH POC ABG pCO2 POC ABG pO2 ABG pO2 ABG Base Excess ABG Hemoglobin ABG Oxyhemoglobin ABG Sodium ABG Potassium ABG Chloride ABG Glucose Carboxyhemoglobin Sodium 128 L Potassium Chloride 90.4 L Carbon Dioxide 19 L BUN 113 H Creatinine 4.5 H Glucose 162 H POC Glucose Lactic Acid Calcium Ionized Calcium Phosphorus 5.70 H Magnesium AST Alkaline Phosphatase Total Protein 6.2 L Albumin 2.1 L Triglycerides Arterial Blood Glucose Arterial Blood Ionized Calcium Urine Creatinine Crossmatch 01/10/21 01/10/21 01/11/21 05:31 11:45 04:00 WBC RBC Hgb Hct MCV MCHC RDW Plt Count Seg Neuts % (Manual) Lymphocytes % (Manual) Seg Neutrophils # Man Lymphocytes # (Manual) Monocytes # (Manual) PT INR APTT Fibrinogen ABG pH 7.311 L POC ABG pCO2 49.2 H POC ABG pO2 ABG pO2 ABG Base Excess ABG Hemoglobin 9.4 L ABG Oxyhemoglobin ABG Sodium 130.3 L ABG Potassium ABG Chloride 96.0 L ABG Glucose 104 H Carboxyhemoglobin Sodium Potassium Chloride Carbon Dioxide BUN Creatinine Glucose POC Glucose 150 H 145 H Lactic Acid Calcium Ionized Calcium Phosphorus Magnesium AST Alkaline Phosphatase Total Protein Albumin Triglycerides Arterial Blood Glucose 104 H Arterial Blood Ionized Calcium Urine Creatinine Crossmatch 01/11/21 01/11/21 01/12/21 04:45 17:29 05:51 WBC RBC Hgb Hct MCV MCHC RDW Plt Count Seg Neuts % (Manual) Lymphocytes % (Manual) Seg Neutrophils # Man Lymphocytes # (Manual) Monocytes # (Manual) PT INR APTT Fibrinogen ABG pH POC ABG pCO2 POC ABG pO2 ABG pO2 ABG Base Excess ABG Hemoglobin ABG Oxyhemoglobin ABG Sodium ABG Potassium ABG Chloride ABG Glucose Carboxyhemoglobin Sodium 134 L Potassium 3.5 L D Chloride 95.5 L Carbon Dioxide BUN 88 H Creatinine 3.5 H Glucose 103 H POC Glucose 109 H 114 H Lactic Acid Calcium Ionized Calcium Phosphorus Magnesium AST Alkaline Phosphatase Total Protein Albumin Triglycerides Arterial Blood Glucose Arterial Blood Ionized Calcium Urine Creatinine Crossmatch
[2021-01-12] MEDS: hydrALAZINE 20 MG/1 ML INJ IV PRN ×2 (10:14→15:40)
--- NOTE | 2021-01-12 11:04 | Progress Note ---
Assessment and Plan Cultures: 12/20/2020 blood culture: No growth 12/20/2020 urine culture: Usual skin giorgio 12/20/2020 tracheal aspirate culture: Mucor A/P: 60-year-old male with obesity, hypertension, tobacco abuse, coronary artery d isease, admitted to the hospital on 12/20/2020 with: #Septic shock: Resolved. No fever. Secondary to intra-abdominal source, peritonitis. Patient with necrotic bowel secondary to incarcerated ventral hernia. Status post exploratory laparotomy, extensive adhesiolysis, small bowel resection and peritoneal lavage along with ABThera VAC placement on 12/20/2020, replacement 12/29/2020. Off pressors. Last surgery abdomen closure with mesh 01/02/2021. Repeat CT 01/09/21 with large organized but bland appearing reactive fluid collection in anterior abdomen - seroma v/s hematoma. #JONI: Renally dose antibiotics. On hemodialysis. #Morbid obesity #Mucor in tracheal aspirate is a colonizer of the tube. Minimal immunosuppression with diabetes. Recs: -continue off abx -hopefully groin trialysis catheter can be removed soon. Lissette Rizzo MD, FACP [facility] ([facility] O: [phone] F: [phone] Subjective Date of service: 01/12/21 Principal diagnosis: SBO and necrosis of large part of small intestine Interval history: Afebrile. Remains on the vent. Getting HD at bedside. Objective - Exam Narrative Exam: Physical Exam: Constitutional: sedated, intubated, on the vent Head, Ears, Nose: Normocephalic, atraumatic. External ears, nose normal Eyes: Conjunctivae/corneas clear. No icterus. No ptosis. Neck: intubated Oral: intubated Cardiovascular: S1, S2 + Respiratory: AE fair bilaterally and equal GI: midline dressing + bowel sounds + Musculoskeletal: scrotal edema Skin: No rash or abscess Hem/Lymphatic: No palpable cervical or supraclavicular nodes. No lymphangitis Psych: no agitation Neurological: sedated, intubated, on the vent, exam limited - Constitutional Vitals: Vital Signs Temp Pulse Resp BP Pulse Ox 98.4 F 93 H 35 H 139/69 99 01/12/21 09:50 01/12/21 11:00 01/12/21 10:30 01/12/21 11:00 01/12/21 10:30 Temperature -Last 24 Hours Temperature 98.4 F Temperature 98.1 F Temperature 98.1 F Temperature 98.4 F Temperature 98.8 F Temperature 98.6 F Temperature 98.5 F - Labs CBC & Chem 7: 01/10/21 04:01 01/12/21 10:00 Labs: Abnormal lab results 01/11/21 01/12/21 Range/Units 17:29 05:51 POC Glucose 109 H 114 H (70-105) mg/dL
[2021-01-12 11:15] LABS: Calcium 8.6 mg/dL (8.4-10.2)
--- NOTE | 2021-01-12 14:37 | Progress Note ---
Assessment and Plan POD#25 s/p ex lap and small bowel resection for necrotic bowel secondary to incarcerated ventral hernia left with open abdomen. POD#22 s/p abdominal exploration with segmental small bowel resection. abthera placement POD#19 s/p abdominal exploration, small bowel resection for ischemia, abthera placement POD#16 s/p abdominal exploration with small bowel anastamosis and abthera vac placement POD#12 s/p abdomen closure with mesh Afebrile and stable Renal failure, continue dialysis per nephrology Respiratory insufficiency, wean to extubation per setup technician Anemia likely due to illness and procedural losses. No clinical signs of iden tifiable active bleeding. Spoke with interventional radiology who reviewed CAT scan who feels that the fluid collection is likely reactive and likely will absorb on its own. As long as patient remains stable, afebrile we will hold off on sampling or draining collection. If patient shows decrease in blood count again that is significant, advised to order CT angio. Continue supportive care. Pt getting evaluated by LTACs. Prognosis is guarded. Subjective Date of service: 01/12/21 Narrative: No acute events overnight. Patient has had improvement in agitation and better pain control with changes in his pain medication. Patient tolerating tube feeds and having bowel movements. Patient is on dialysis the time of this evaluation. Objective Vital Signs - 12hr 01/12/21 01/12/21 01/12/21 02:30 03:00 03:30 Temperature Pulse Rate 95 H 95 H 92 H Pulse Rate [ From Monitor] Respiratory 26 H 28 H 26 H Rate Blood Pressure 164/87 158/88 171/91 O2 Sat by Pulse 98 98 98 Oximetry O2 Sat by Pulse Oximetry [ Anterior Bilateral Throughout] O2 Sat by Pulse Oximetry [ Bilateral Throughout] 01/12/21 01/12/21 01/12/21 04:00 04:30 04:50 Temperature Pulse Rate 96 H 94 H 96 H Pulse Rate [ 93 H From Monitor] Respiratory 27 H 28 H Rate Blood Pressure 172/95 172/95 186/90 O2 Sat by Pulse 98 98 96 Oximetry O2 Sat by Pulse Oximetry [ Anterior Bilateral Throughout] O2 Sat by Pulse Oximetry [ Bilateral Throughout] 01/12/21 01/12/21 01/12/21 05:00 05:30 06:00 Temperature Pulse Rate 93 H 96 H 98 H Pulse Rate [ From Monitor] Respiratory 23 26 H 23 Rate Blood Pressure 186/90 184/90 188/106 O2 Sat by Pulse 98 99 99 Oximetry O2 Sat by Pulse Oximetry [ Anterior Bilateral Throughout] O2 Sat by Pulse Oximetry [ Bilateral Throughout] 01/12/21 01/12/21 01/12/21 06:30 07:00 07:30 Temperature 98.1 F Pulse Rate 94 H 89 82 Pulse Rate [ From Monitor] Respiratory 29 H 29 H 25 H Rate Blood Pressure 188/106 167/98 163/91 O2 Sat by Pulse 99 98 99 Oximetry O2 Sat by Pulse Oximetry [ Anterior Bilateral Throughout] O2 Sat by Pulse Oximetry [ Bilateral Throughout] 01/12/21 01/12/21 01/12/21 08:00 08:30 09:00 Temperature 98.1 F Pulse Rate 76 85 79 Pulse Rate [ 76 From Monitor] Respiratory 24 25 H 24 Rate Blood Pressure 144/75 160/87 147/79 O2 Sat by Pulse 99 99 99 Oximetry O2 Sat by Pulse Oximetry [ Anterior Bilateral Throughout] O2 Sat by Pulse Oximetry [ Bilateral Throughout] 01/12/21 01/12/21 01/12/21 09:30 09:50 10:00 Temperature 98.4 F Pulse Rate 72 87 100 H Pulse Rate [ From Monitor] Respiratory 24 27 H 46 H Rate Blood Pressure 125/70 210/140 198/105 O2 Sat by Pulse 99 99 Oximetry O2 Sat by Pulse 98 Oximetry [ Anterior Bilateral Throughout] O2 Sat by Pulse Oximetry [ Bilateral Throughout] 01/12/21 01/12/21 01/12/21 10:10 10:14 10:15 Temperature Pulse Rate 87 87 Pulse Rate [ From Monitor] Respiratory Rate Blood Pressure 210/140 210/140 180/86 O2 Sat by Pulse Oximetry O2 Sat by Pulse Oximetry [ Anterior Bilateral Throughout] O2 Sat by Pulse Oximetry [ Bilateral Throughout] 01/12/21 01/12/21 01/12/21 10:30 10:45 11:00 Temperature Pulse Rate 97 H 94 H 91 H Pulse Rate [ From Monitor] Respiratory 35 H 27 H Rate Blood Pressure 139/64 132/68 139/69 O2 Sat by Pulse 99 99 Oximetry O2 Sat by Pulse Oximetry [ Anterior Bilateral Throughout] O2 Sat by Pulse Oximetry [ Bilateral Throughout] 01/12/21 01/12/21 01/12/21 11:15 11:30 11:37 Temperature Pulse Rate 92 H 97 H 92 H Pulse Rate [ From Monitor] Respiratory 31 H Rate Blood Pressure 141/72 157/82 141/72 O2 Sat by Pulse 100 99 Oximetry O2 Sat by Pulse Oximetry [ Anterior Bilateral Throughout] O2 Sat by Pulse Oximetry [ Bilateral Throughout] 01/12/21 01/12/21 01/12/21 11:39 11:45 12:00 Temperature Pulse Rate 94 H 105 H 107 H Pulse Rate [ 107 H From Monitor] Respiratory 38 H Rate Blood Pressure 141/72 159/104 159/104 O2 Sat by Pulse 98 99 Oximetry O2 Sat by Pulse Oximetry [ Anterior Bilateral Throughout] O2 Sat by Pulse Oximetry [ Bilateral Throughout] 01/12/21 01/12/21 01/12/21 12:15 12:30 12:45 Temperature Pulse Rate 106 H 102 H 95 H Pulse Rate [ From Monitor] Respiratory 33 H Rate Blood Pressure 192/100 203/105 186/95 O2 Sat by Pulse 100 Oximetry O2 Sat by Pulse Oximetry [ Anterior Bilateral Throughout] O2 Sat by Pulse Oximetry [ Bilateral Throughout] 01/12/21 01/12/21 01/12/21 13:00 13:10 13:35 Temperature 98.4 F Pulse Rate 96 H 94 H 88 Pulse Rate [ From Monitor] Respiratory 23 Rate Blood Pressure 194/91 194/91 140/80 O2 Sat by Pulse Oximetry O2 Sat by Pulse Oximetry [ Anterior Bilateral Throughout] O2 Sat by Pulse 98 Oximetry [ Bilateral Throughout] - General physical appearance well developed, no distress, no pain - Respiratory normal expansion, normal respiratory effort, other (Intubated on ventilator) - Abdomen soft, other (LAURA drain serous. Incision clean dry and intact.) - Labs 01/10/21 04:01 01/12/21 10:00 Diabetes panel 01/12/21 01/12/21 Range/Units 10:00 10:00 Sodium 136 L (137-145) mmol/L Potassium 3.7 (3.6-5.0) mmol/L Chloride 95.2 L (98-107) mmol/L Carbon Dioxide 24 (22-30) mmol/L BUN 102 H (9-20) mg/dL Creatinine 3.6 H (0.8-1.3) mg/dL Glucose 106 H (75-100) mg/dL Calcium 8.6 (8.4-10.2) mg/dL Triglycerides 153 H (2-149) mg/dL Calcium panel 01/12/21 Range/Units 10:00 Calcium 8.6 (8.4-10.2) mg/dL Phosphorus 4.90 H (2.5-4.5) mg/dL Pituitary panel 01/12/21 Range/Units 10:00 Sodium 136 L (137-145) mmol/L Potassium 3.7 (3.6-5.0) mmol/L Chloride 95.2 L (98-107) mmol/L Carbon Dioxide 24 (22-30) mmol/L BUN 102 H (9-20) mg/dL Creatinine 3.6 H (0.8-1.3) mg/dL Glucose 106 H (75-100) mg/dL Calcium 8.6 (8.4-10.2) mg/dL Adrenal panel 01/12/21 Range/Units 10:00 Sodium 136 L (137-145) mmol/L Potassium 3.7 (3.6-5.0) mmol/L Chloride 95.2 L (98-107) mmol/L Carbon Dioxide 24 (22-30) mmol/L BUN 102 H (9-20) mg/dL Creatinine 3.6 H (0.8-1.3) mg/dL Glucose 106 H (75-100) mg/dL Calcium 8.6 (8.4-10.2) mg/dL
[2021-01-12] MEDS ORDERED: TOTAL PARENTERAL NUTRITION 1,999.92 ML IV SCH (20:00)
[2021-01-13] MEDS: METOCLOPRAMIDE 10 MG/2 ML INJ IV SCH ×4 (00:34→18:17)
[2021-01-13] MEDS: HYDROmorphone 1 MG/1 ML INJ IV SCH ×6 (03:22→22:43)
[2021-01-13] MEDS: hydrALAZINE 20 MG/1 ML INJ IV PRN ×3 (03:22→12:48)
[2021-01-13] MEDS: INSULIN REGULAR, HUMAN 100 UNITS/1 ML SUB-Q SCH ×4 (03:24→18:27)
[2021-01-13] MEDS: HEPARIN 5,000 UNIT/1 ML VIAL SUB-Q SCH ×3 (06:16→22:42)
[2021-01-13 06:25] LABS: Hematocrit 24.4 % (35.5-45.6); Mean Corpuscular HGB Conc 33 % (32-34); Mean Corpuscular Volume 85 fl (84-94); Platelet Count 274 K/mm3 (140-440); Red Blood Count 2.87 M/mm3 (3.65-5.03); Red Cell Distribution Width 17.2 % (13.2-15.2)
[2021-01-13] MEDS: HYDROmorphone 1 MG/1 ML INJ IV PRN (09:08)
--- NOTE | 2021-01-13 09:30 | Progress Note ---
Assessment and Plan 60 y/o male with abdominal catastrophe, s/p ex-lap with open abdomen, ventilated for pain control and support. 01/13/21: Place IJ vascath today. Added PRN dilaudid on lebron of scheduled dilaudid. Goal is to not put patient back on continuous drip for pain so that we can facilitate weaning. needs peer to peer for LTACH approval. Continue supportive measures. 01/12/21: Patient getting dialysis today. Continue to control pain, added PRN dilauded on top of scheduled dosing as patient still gets very agitated off diprovan. Will discuss with renal plans for future HD as ID and Infection control are very concerned about the groin catheter. If permanent dialysis then will ask that IR place permcath. if they feel intermittent, then will place IJ and remove femoral vascath. 01/11/21: Will increase pain regimen. Scheduled the dilaudid to q4 and add a fent patch. Would like to avoid drip as we are trying to actively wean patient from mechanical ventilation. Spoke with CM who states LTACH has accepted patient but we are waiting on insurance authorization. HgB is stable this am and reviewed surgery and IR recs. I do no think the area of fluid needs to be sampled. 01/10/21: Spoke with surgery this am about CT findings. Will discuss with IR their thoughts on fluid. Not concerned about infection in that area. Main alberta son for CT was to see if we could figure out where blood was going as it was coming out of his bottom or NG contents. This is appears to be something small and slow, like a venous issues. Hopefully it has sealed off at this time. HgB is up to 8 this am patient did not get blood on yesterday. Off fent now, will continue to wean Diprovan and Precedex as tolerated. Spoke with CM and asked to send out to LTACH's but will steal try to aggressively wean. Making good urine, hopeful kidney's will recover. Will ask renal about other ways to remove volume in third spacing (albumin, lasix etc). Prognosis still remains guarded. Continue TPN for now. 01/09/21: Will obtain contrasted CT of abdomen and pelvis to look for potential pockets of blood or bleeding. Spoke with renal and they feel kidneys are recovering but ok with HD tomorrow if needed post dye load. Will attempt to wean Fent more and use prn dilaudid. Will start reglan to help with gut motility. Hopeful to be off TPN soon. Once sedation is off, can start SBT's. CCT 31 minutes. Subjective Date of service: 01/13/21 Principal diagnosis: SBO and necrosis of large part of small intestine Interval history: Spoke with renal and they request an IJ vascath, will place today. Otherwise, all numbers are stable and ABG is good. Objective Vital Signs - 12hr 01/12/21 01/12/21 01/12/21 21:30 22:00 22:30 Temperature Pulse Rate 87 82 94 H Pulse Rate [ From Monitor] Respiratory 25 H 24 26 H Rate Blood Pressure 174/86 148/88 190/94 O2 Sat by Pulse 98 99 99 Oximetry 01/12/21 01/12/21 01/12/21 22:56 23:00 23:30 Temperature Pulse Rate 90 90 90 Pulse Rate [ From Monitor] Respiratory 26 H 28 H 27 H Rate Blood Pressure 181/111 181/111 167/92 O2 Sat by Pulse 100 99 99 Oximetry 01/12/21 01/13/21 01/13/21 23:45 00:00 00:04 Temperature 98.3 F Pulse Rate 91 H 93 H Pulse Rate [ 85 From Monitor] Respiratory 20 Rate Blood Pressure 169/85 188/93 O2 Sat by Pulse 98 100 Oximetry 01/13/21 01/13/21 01/13/21 00:30 01:00 01:30 Temperature Pulse Rate 92 H 81 93 H Pulse Rate [ From Monitor] Respiratory 30 H 17 27 H Rate Blood Pressure 188/91 189/94 166/86 O2 Sat by Pulse 96 99 99 Oximetry 01/13/21 01/13/21 01/13/21 02:00 02:30 03:00 Temperature Pulse Rate 87 84 88 Pulse Rate [ From Monitor] Respiratory 26 H 25 H 28 H Rate Blood Pressure 195/77 202/97 179/91 O2 Sat by Pulse 100 98 97 Oximetry 01/13/21 01/13/21 01/13/21 03:17 03:22 03:23 Temperature 98.9 F Pulse Rate 84 91 H Pulse Rate [ From Monitor] Respiratory Rate Blood Pressure 193/90 193/90 O2 Sat by Pulse 99 Oximetry 01/13/21 01/13/21 01/13/21 03:30 04:00 04:30 Temperature Pulse Rate 86 98 H 93 H Pulse Rate [ 96 H From Monitor] Respiratory 27 H 24 28 H Rate Blood Pressure 193/90 178/106 155/83 O2 Sat by Pulse 98 99 98 Oximetry 01/13/21 01/13/21 01/13/21 05:00 05:31 06:01 Temperature Pulse Rate 90 103 H 93 H Pulse Rate [ From Monitor] Respiratory 28 H 27 H 17 Rate Blood Pressure 147/82 168/103 164/91 O2 Sat by Pulse 98 97 98 Oximetry 01/13/21 01/13/21 01/13/21 06:30 07:00 07:04 Temperature Pulse Rate 96 H 94 H 94 H Pulse Rate [ From Monitor] Respiratory 19 22 Rate Blood Pressure 190/104 210/104 210/104 O2 Sat by Pulse 98 98 Oximetry 01/13/21 01/13/21 01/13/21 07:31 07:41 08:00 Temperature Pulse Rate 102 H 98 H 98 H Pulse Rate [ 98 H From Monitor] Respiratory 26 H 30 H Rate Blood Pressure 180/94 166/97 165/87 O2 Sat by Pulse 97 98 98 Oximetry Constitutional: comatose (secondary to sedation.), other (critically ill on ventilator) Eyes: non-icteric ENT: oropharynx moist Neck: supple Effort: normal Ascultation: Bilateral: other (coarse BS bilaterally) Cardiovascular: other (tachy, RR; no mrg) Gastrointestinal: other (abdomen open) Integumentary: normal Extremities: no cyanosis, no edema, pink and warm Neurologic: other (sedated) CBC and BMP: 01/16/21 04:30 01/16/21 04:30 ABG, PT/INR, D-dimer: ABG ABG pH 7.484 (7.320-7.450) H 01/13/21 03:14 POC ABG pCO2 34.8 mmHg (32.0-48.0) 01/13/21 03:14 ABG pCO2 37.9 mm Hg 01/05/21 03:50 POC ABG pO2 104.0 mmHg (83-108) 01/13/21 03:14 ABG pO2 136.8 mm Hg (80.0-90.0) H 01/05/21 03:50 POC ABG HCO3 25.6 01/13/21 03:14 ABG O2 Saturation 98.3 (0-100) 01/13/21 03:14 PT/INR, D-dimer PT 15.4 Sec. (12.2-14.9) H 01/10/21 04:01 INR 1.17 (0.87-1.13) H 01/10/21 04:01 Abnormal lab findings: Abnormal Labs 12/20/20 12/20/20 12/20/20 13:58 13:58 13:58 WBC 41.1 H* RBC 5.59 H Hgb 16.2 H Hct 47.7 H MCV MCHC RDW 15.5 H Plt Count 486 H Seg Neuts % (Manual) Lymphocytes % (Manual) Seg Neutrophils # Man Lymphocytes # (Manual) Monocytes # (Manual) PT INR APTT Fibrinogen ABG pH POC ABG pCO2 POC ABG pO2 ABG pO2 ABG Base Excess ABG Hemoglobin ABG Oxyhemoglobin ABG Sodium ABG Potassium ABG Chloride ABG Glucose Carboxyhemoglobin Sodium 130 L Potassium Chloride 80.7 L Carbon Dioxide BUN 37 H Creatinine Glucose 101 H POC Glucose Lactic Acid 3.20 H* Calcium Ionized Calcium Phosphorus Magnesium AST Alkaline Phosphatase 142 H Total Protein 6.2 L Albumin 2.2 L Triglycerides Arterial Blood Glucose Arterial Blood Ionized Calcium Urine Creatinine Crossmatch 12/20/20 12/20/20 12/20/20 13:58 20:35 21:30 WBC RBC Hgb Hct MCV MCHC RDW Plt Count Seg Neuts % (Manual) Lymphocytes % (Manual) Seg Neutrophils # Man Lymphocytes # (Manual) Monocytes # (Manual) PT INR APTT 49.4 H Fibrinogen ABG pH 7.313 L POC ABG pCO2 POC ABG pO2 ABG pO2 104.4 H ABG Base Excess ABG Hemoglobin ABG Oxyhemoglobin ABG Sodium ABG Potassium ABG Chloride ABG Glucose Carboxyhemoglobin Sodium Potassium Chloride Carbon Dioxide BUN Creatinine Glucose POC Glucose 122 H Lactic Acid Calcium Ionized Calcium Phosphorus Magnesium AST Alkaline Phosphatase Total Protein Albumin Triglycerides Arterial Blood Glucose Arterial Blood Ionized Calcium Urine Creatinine Crossmatch 12/21/20 12/21/20 12/21/20 03:06 08:14 08:14 WBC 23.9 H RBC Hgb Hct MCV MCHC RDW 15.7 H Plt Count Seg Neuts % (Manual) 91.0 H Lymphocytes % (Manual) 3.0 L Seg Neutrophils # Man 21.7 H Lymphocytes # (Manual) 0.7 L Monocytes # (Manual) 1.4 H PT INR APTT Fibrinogen ABG pH 7.464 H POC ABG pCO2 POC ABG pO2 202.9 H ABG pO2 ABG Base Excess ABG Hemoglobin ABG Oxyhemoglobin ABG Sodium 133.7 L ABG Potassium ABG Chloride ABG Glucose 122 H Carboxyhemoglobin Sodium Potassium Chloride Carbon Dioxide BUN 46 H Creatinine Glucose 103 H POC Glucose Lactic Acid Calcium 6.6 L D Ionized Calcium Phosphorus Magnesium AST Alkaline Phosphatase Total Protein 5.4 L Albumin 2.3 L Triglycerides Arterial Blood Glucose 122 H Arterial Blood Ionized Calcium 3.5 L Urine Creatinine Crossmatch 12/21/20 12/21/20 12/22/20 17:18 21:28 04:45 WBC 22.9 H RBC Hgb Hct MCV MCHC RDW 15.7 H Plt Count Seg Neuts % (Manual) Lymphocytes % (Manual) Seg Neutrophils # Man Lymphocytes # (Manual) Monocytes # (Manual) PT INR APTT Fibrinogen ABG pH POC ABG pCO2 POC ABG pO2 ABG pO2 ABG Base Excess ABG Hemoglobin ABG Oxyhemoglobin ABG Sodium ABG Potassium ABG Chloride ABG Glucose Carboxyhemoglobin Sodium Potassium Chloride Carbon Dioxide BUN Creatinine Glucose POC Glucose 108 H Lactic Acid Calcium Ionized Calcium 4.1 L Phosphorus Magnesium AST Alkaline Phosphatase Total Protein Albumin Triglycerides Arterial Blood Glucose Arterial Blood Ionized Calcium Urine Creatinine Crossmatch 12/22/20 12/22/20 12/22/20 04:45 05:00 11:38 WBC RBC Hgb Hct MCV MCHC RDW Plt Count Seg Neuts % (Manual) Lymphocytes % (Manual) Seg Neutrophils # Man Lymphocytes # (Manual) Monocytes # (Manual) PT INR APTT Fibrinogen ABG pH 7.462 H POC ABG pCO2 POC ABG pO2 ABG pO2 ABG Base Excess ABG Hemoglobin ABG Oxyhemoglobin ABG Sodium ABG Potassium ABG Chloride ABG Glucose 118 H Carboxyhemoglobin Sodium 146 H Potassium Chloride Carbon Dioxide BUN 45 H Creatinine Glucose 116 H POC Glucose 115 H Lactic Acid Calcium 6.9 L Ionized Calcium Phosphorus Magnesium AST Alkaline Phosphatase Total Protein Albumin Triglycerides Arterial Blood Glucose 118 H Arterial Blood Ionized Calcium 3.8 L Urine Creatinine Crossmatch 12/22/20 12/23/20 12/23/20 23:26 04:43 04:45 WBC 22.2 H RBC Hgb Hct MCV MCHC RDW 16.1 H Plt Count Seg Neuts % (Manual) Lymphocytes % (Manual) Seg Neutrophils # Man Lymphocytes # (Manual) Monocytes # (Manual) PT INR APTT Fibrinogen ABG pH POC ABG pCO2 POC ABG pO2 ABG pO2 ABG Base Excess ABG Hemoglobin ABG Oxyhemoglobin ABG Sodium 147.4 H ABG Potassium ABG Chloride 112.0 H ABG Glucose 130 H Carboxyhemoglobin 0.4 L Sodium Potassium Chloride Carbon Dioxide BUN Creatinine Glucose POC Glucose 110 H Lactic Acid Calcium Ionized Calcium Phosphorus Magnesium AST Alkaline Phosphatase Total Protein Albumin Triglycerides Arterial Blood Glucose 130 H Arterial Blood Ionized Calcium 3.8 L Urine Creatinine Crossmatch 12/23/20 12/23/20 12/23/20 04:45 05:17 11:22 WBC RBC Hgb Hct MCV MCHC RDW Plt Count Seg Neuts % (Manual) Lymphocytes % (Manual) Seg Neutrophils # Man Lymphocytes # (Manual) Monocytes # (Manual) PT INR APTT Fibrinogen ABG pH POC ABG pCO2 POC ABG pO2 ABG pO2 ABG Base Excess ABG Hemoglobin ABG Oxyhemoglobin ABG Sodium ABG Potassium ABG Chloride ABG Glucose Carboxyhemoglobin Sodium 154 H D Potassium Chloride 110.9 H Carbon Dioxide BUN 54 H Creatinine 1.8 H Glucose 115 H POC Glucose 116 H 130 H Lactic Acid Calcium 7.0 L Ionized Calcium Phosphorus Magnesium AST Alkaline Phosphatase Total Protein Albumin Triglycerides Arterial Blood Glucose Arterial Blood Ionized Calcium Urine Creatinine Crossmatch 12/23/20 12/23/20 12/23/20 12:15 12:15 23:15 WBC RBC Hgb Hct MCV MCHC RDW Plt Count Seg Neuts % (Manual) Lymphocytes % (Manual) Seg Neutrophils # Man Lymphocytes # (Manual) Monocytes # (Manual) PT INR APTT Fibrinogen ABG pH POC ABG pCO2 POC ABG pO2 ABG pO2 ABG Base Excess ABG Hemoglobin ABG Oxyhemoglobin ABG Sodium ABG Potassium ABG Chloride ABG Glucose Carboxyhemoglobin Sodium 154 H Potassium Chloride Carbon Dioxide BUN Creatinine 1.5 H Glucose POC Glucose 132 H Lactic Acid Calcium Ionized Calcium Phosphorus Magnesium AST Alkaline Phosphatase Total Protein Albumin Triglycerides Arterial Blood Glucose Arterial Blood Ionized Calcium Urine Creatinine 78.1 H Crossmatch 12/24/20 12/24/20 12/24/20 04:19 04:30 04:30 WBC 18.3 H RBC Hgb Hct MCV MCHC RDW 16.5 H Plt Count Seg Neuts % (Manual) Lymphocytes % (Manual) Seg Neutrophils # Man Lymphocytes # (Manual) Monocytes # (Manual) PT INR APTT Fibrinogen ABG pH POC ABG pCO2 POC ABG pO2 ABG pO2 ABG Base Excess ABG Hemoglobin ABG Oxyhemoglobin ABG Sodium 149.7 H ABG Potassium ABG Chloride 116.0 H ABG Glucose 180 H Carboxyhemoglobin Sodium 155 H Potassium Chloride 116.1 H Carbon Dioxide BUN 52 H Creatinine 1.5 H Glucose 175 H POC Glucose Lactic Acid Calcium 6.8 L Ionized Calcium Phosphorus Magnesium 3.00 H AST Alkaline Phosphatase Total Protein 5.7 L Albumin 1.8 L Triglycerides Arterial Blood Glucose 180 H Arterial Blood Ionized Calcium 3.7 L Urine Creatinine Crossmatch 12/24/20 12/24/20 12/24/20 05:24 11:21 18:05 WBC RBC Hgb Hct MCV MCHC RDW Plt Count Seg Neuts % (Manual) Lymphocytes % (Manual) Seg Neutrophils # Man Lymphocytes # (Manual) Monocytes # (Manual) PT INR APTT Fibrinogen ABG pH POC ABG pCO2 POC ABG pO2 ABG pO2 ABG Base Excess ABG Hemoglobin ABG Oxyhemoglobin ABG Sodium ABG Potassium ABG Chloride ABG Glucose Carboxyhemoglobin Sodium Potassium Chloride Carbon Dioxide BUN Creatinine Glucose POC Glucose 153 H 154 H 133 H Lactic Acid Calcium Ionized Calcium Phosphorus Magnesium AST Alkaline Phosphatase Total Protein Albumin Triglycerides Arterial Blood Glucose Arterial Blood Ionized Calcium Urine Creatinine Crossmatch 12/25/20 12/25/20 12/25/20 04:00 07:00 07:00 WBC 17.6 H RBC Hgb Hct MCV MCHC 31 L RDW 16.0 H Plt Count Seg Neuts % (Manual) Lymphocytes % (Manual) Seg Neutrophils # Man Lymphocytes # (Manual) Monocytes # (Manual) PT INR APTT Fibrinogen ABG pH POC ABG pCO2 POC ABG pO2 ABG pO2 ABG Base Excess ABG Hemoglobin ABG Oxyhemoglobin ABG Sodium 152.5 H ABG Potassium ABG Chloride 119.0 H ABG Glucose 136 H Carboxyhemoglobin Sodium Potassium Chloride Carbon Dioxide BUN Creatinine Glucose POC Glucose Lactic Acid Calcium Ionized Calcium Phosphorus Magnesium 2.70 H AST Alkaline Phosphatase Total Protein Albumin Triglycerides Arterial Blood Glucose 136 H Arterial Blood Ionized Calcium 3.7 L Urine Creatinine Crossmatch 12/25/20 12/25/20 12/25/20 07:00 11:24 16:32 WBC RBC Hgb Hct MCV MCHC RDW Plt Count Seg Neuts % (Manual) Lymphocytes % (Manual) Seg Neutrophils # Man Lymphocytes # (Manual) Monocytes # (Manual) PT INR APTT Fibrinogen ABG pH POC ABG pCO2 POC ABG pO2 ABG pO2 ABG Base Excess ABG Hemoglobin ABG Oxyhemoglobin ABG Sodium ABG Potassium ABG Chloride ABG Glucose Carboxyhemoglobin Sodium 156 H Potassium Chloride 118.0 H Carbon Dioxide BUN 44 H Creatinine 1.7 H Glucose 126 H POC Glucose 110 H 126 H Lactic Acid Calcium 6.9 L Ionized Calcium Phosphorus Magnesium AST Alkaline Phosphatase Total Protein Albumin Triglycerides Arterial Blood Glucose Arterial Blood Ionized Calcium Urine Creatinine Crossmatch 12/25/20 12/25/20 12/26/20 18:18 23:23 03:30 WBC RBC Hgb Hct MCV MCHC RDW Plt Count Seg Neuts % (Manual) Lymphocytes % (Manual) Seg Neutrophils # Man Lymphocytes # (Manual) Monocytes # (Manual) PT INR APTT Fibrinogen ABG pH POC ABG pCO2 POC ABG pO2 ABG pO2 ABG Base Excess ABG Hemoglobin 11.8 L ABG Oxyhemoglobin ABG Sodium ABG Potassium 4.7 H ABG Chloride 114.0 H ABG Glucose 132 H Carboxyhemoglobin Sodium 151 H Potassium Chloride 114.3 H Carbon Dioxide BUN 51 H Creatinine 2.6 H D Glucose 122 H POC Glucose 115 H Lactic Acid Calcium 6.4 L Ionized Calcium Phosphorus Magnesium AST Alkaline Phosphatase Total Protein Albumin Triglycerides Arterial Blood Glucose 132 H Arterial Blood Ionized Calcium 3.6 L Urine Creatinine Crossmatch 12/26/20 12/26/20 12/26/20 04:55 06:01 06:01 WBC 21.6 H RBC Hgb Hct MCV MCHC 31 L RDW 16.5 H Plt Count 136 L Seg Neuts % (Manual) Lymphocytes % (Manual) Seg Neutrophils # Man Lymphocytes # (Manual) Monocytes # (Manual) PT INR APTT Fibrinogen ABG pH POC ABG pCO2 POC ABG pO2 ABG pO2 ABG Base Excess ABG Hemoglobin ABG Oxyhemoglobin ABG Sodium ABG Potassium ABG Chloride ABG Glucose Carboxyhemoglobin Sodium 173 H* D Potassium 6.1 H* D Chloride 137.0 H Carbon Dioxide BUN 73 H Creatinine 3.8 H Glucose 125 H POC Glucose 112 H Lactic Acid Calcium 6.2 L Ionized Calcium Phosphorus 5.70 H D Magnesium 2.90 H AST Alkaline Phosphatase Total Protein Albumin Triglycerides Arterial Blood Glucose Arterial Blood Ionized Calcium Urine Creatinine Crossmatch 12/26/20 12/26/20 12/26/20 08:33 11:19 22:00 WBC RBC Hgb Hct MCV MCHC RDW Plt Count Seg Neuts % (Manual) Lymphocytes % (Manual) Seg Neutrophils # Man Lymphocytes # (Manual) Monocytes # (Manual) PT INR APTT Fibrinogen ABG pH POC ABG pCO2 POC ABG pO2 ABG pO2 ABG Base Excess ABG Hemoglobin ABG Oxyhemoglobin ABG Sodium ABG Potassium ABG Chloride ABG Glucose Carboxyhemoglobin Sodium 147 H D Potassium 5.8 H D Chloride 108.8 H Carbon Dioxide 21 L BUN 68 H 68 H Creatinine 3.8 H 4.1 H Glucose 144 H 154 H POC Glucose 144 H Lactic Acid Calcium 6.5 L 5.8 L* Ionized Calcium Phosphorus Magnesium AST 215 H Alkaline Phosphatase Total Protein 4.7 L Albumin 1.5 L Triglycerides Arterial Blood Glucose Arterial Blood Ionized Calcium Urine Creatinine Crossmatch 12/26/20 12/26/20 12/27/20 23:13 Unknown 00:25 WBC RBC Hgb 11.1 L Hct MCV MCHC RDW Plt Count Seg Neuts % (Manual) Lymphocytes % (Manual) Seg Neutrophils # Man Lymphocytes # (Manual) Monocytes # (Manual) PT INR APTT Fibrinogen ABG pH POC ABG pCO2 POC ABG pO2 ABG pO2 ABG Base Excess ABG Hemoglobin ABG Oxyhemoglobin ABG Sodium ABG Potassium ABG Chloride ABG Glucose Carboxyhemoglobin Sodium Potassium Chloride Carbon Dioxide BUN Creatinine Glucose POC Glucose 163 H Lactic Acid Calcium Ionized Calcium Phosphorus 5.60 H Magnesium AST Alkaline Phosphatase Total Protein Albumin Triglycerides Arterial Blood Glucose Arterial Blood Ionized Calcium Urine Creatinine Crossmatch 12/27/20 12/27/20 12/27/20 02:57 04:15 04:15 WBC 28.5 H RBC Hgb 11.2 L Hct MCV MCHC 31 L RDW 16.5 H Plt Count 130 L Seg Neuts % (Manual) Lymphocytes % (Manual) Seg Neutrophils # Man Lymphocytes # (Manual) Monocytes # (Manual) PT INR APTT Fibrinogen ABG pH 7.238 L POC ABG pCO2 POC ABG pO2 139.1 H ABG pO2 ABG Base Excess ABG Hemoglobin 11.2 L ABG Oxyhemoglobin ABG Sodium 133.8 L ABG Potassium 5.2 H ABG Chloride ABG Glucose 182 H Carboxyhemoglobin Sodium 136 L Potassium 6.0 H Chloride Carbon Dioxide 18 L BUN 68 H Creatinine 4.1 H Glucose 166 H POC Glucose Lactic Acid Calcium 6.2 L Ionized Calcium Phosphorus 7.30 H D Magnesium AST Alkaline Phosphatase Total Protein Albumin Triglycerides 164 H Arterial Blood Glucose 182 H Arterial Blood Ionized Calcium 3.4 L Urine Creatinine Crossmatch 12/27/20 12/27/20 12/27/20 04:50 10:51 11:17 WBC RBC Hgb Hct MCV MCHC RDW Plt Count Seg Neuts % (Manual) Lymphocytes % (Manual) Seg Neutrophils # Man Lymphocytes # (Manual) Monocytes # (Manual) PT INR APTT Fibrinogen ABG pH POC ABG pCO2 POC ABG pO2 ABG pO2 ABG Base Excess ABG Hemoglobin ABG Oxyhemoglobin ABG Sodium ABG Potassium ABG Chloride ABG Glucose Carboxyhemoglobin Sodium Potassium Chloride Carbon Dioxide BUN Creatinine Glucose POC Glucose 140 H 113 H 154 H Lactic Acid Calcium Ionized Calcium Phosphorus Magnesium AST Alkaline Phosphatase Total Protein Albumin Triglycerides Arterial Blood Glucose Arterial Blood Ionized Calcium Urine Creatinine Crossmatch 12/27/20 12/27/20 12/27/20 12:40 14:40 23:17 WBC RBC Hgb Hct MCV MCHC RDW Plt Count Seg Neuts % (Manual) Lymphocytes % (Manual) Seg Neutrophils # Man Lymphocytes # (Manual) Monocytes # (Manual) PT INR APTT Fibrinogen ABG pH POC ABG pCO2 POC ABG pO2 ABG pO2 ABG Base Excess ABG Hemoglobin ABG Oxyhemoglobin ABG Sodium ABG Potassium ABG Chloride ABG Glucose Carboxyhemoglobin Sodium 135 L Potassium Chloride Carbon Dioxide 21 L BUN 62 H Creatinine 3.8 H Glucose 132 H POC Glucose 130 H Lactic Acid Calcium 5.6 L* Ionized Calcium 3.3 L Phosphorus Magnesium AST Alkaline Phosphatase Total Protein Albumin Triglycerides Arterial Blood Glucose Arterial Blood Ionized Calcium Urine Creatinine Crossmatch 12/28/20 12/28/20 12/28/20 05:36 07:08 07:28 WBC 27.2 H RBC 3.50 L Hgb 9.6 L Hct 30.8 L MCV MCHC 31 L RDW 16.1 H Plt Count 111 L Seg Neuts % (Manual) 95.0 H Lymphocytes % (Manual) Seg Neutrophils # Man 25.8 H Lymphocytes # (Manual) 0.0 L Monocytes # (Manual) 1.1 H PT INR APTT Fibrinogen ABG pH 7.200 L POC ABG pCO2 POC ABG pO2 67.2 L ABG pO2 ABG Base Excess ABG Hemoglobin 10.3 L ABG Oxyhemoglobin 89.6 L ABG Sodium 127.8 L ABG Potassium 5.1 H ABG Chloride ABG Glucose 132 H Carboxyhemoglobin 0.4 L Sodium Potassium Chloride Carbon Dioxide BUN Creatinine Glucose POC Glucose 128 H Lactic Acid Calcium Ionized Calcium Phosphorus Magnesium AST Alkaline Phosphatase Total Protein Albumin Triglycerides Arterial Blood Glucose 132 H Arterial Blood Ionized Calcium 3.5 L Urine Creatinine Crossmatch 12/28/20 12/28/20 12/28/20 07:28 11:37 13:25 WBC RBC Hgb Hct MCV MCHC RDW Plt Count Seg Neuts % (Manual) Lymphocytes % (Manual) Seg Neutrophils # Man Lymphocytes # (Manual) Monocytes # (Manual) PT INR APTT Fibrinogen ABG pH POC ABG pCO2 POC ABG pO2 ABG pO2 ABG Base Excess ABG Hemoglobin ABG Oxyhemoglobin ABG Sodium ABG Potassium ABG Chloride ABG Glucose Carboxyhemoglobin Sodium 131 L 133 L Potassium 5.9 H 5.1 H Chloride 97.1 L Carbon Dioxide 15 L 21 L BUN 70 H 77 H Creatinine 4.0 H 4.4 H Glucose 118 H 140 H POC Glucose 135 H Lactic Acid Calcium 6.3 L 6.3 L Ionized Calcium Phosphorus 7.10 H Magnesium AST 144 H Alkaline Phosphatase Total Protein 4.8 L Albumin 1.3 L Triglycerides Arterial Blood Glucose Arterial Blood Ionized Calcium Urine Creatinine Crossmatch 12/28/20 12/28/20 12/29/20 16:38 23:28 03:08 WBC RBC Hgb Hct MCV MCHC RDW Plt Count Seg Neuts % (Manual) Lymphocytes % (Manual) Seg Neutrophils # Man Lymphocytes # (Manual) Monocytes # (Manual) PT INR APTT Fibrinogen ABG pH 7.301 L POC ABG pCO2 POC ABG pO2 151.1 H ABG pO2 ABG Base Excess ABG Hemoglobin 8.7 L ABG Oxyhemoglobin 98.2 H ABG Sodium 123.4 L ABG Potassium ABG Chloride 97.0 L ABG Glucose 144 H Carboxyhemoglobin Sodium Potassium Chloride Carbon Dioxide BUN Creatinine Glucose POC Glucose 140 H 134 H Lactic Acid Calcium Ionized Calcium Phosphorus Magnesium AST Alkaline Phosphatase Total Protein Albumin Triglycerides Arterial Blood Glucose 144 H Arterial Blood Ionized Calcium 3.4 L Urine Creatinine Crossmatch 12/29/20 12/29/20 12/29/20 05:20 05:20 06:01 WBC 21.0 H RBC 2.89 L Hgb 8.1 L Hct 25.5 L MCV MCHC RDW 16.1 H Plt Count 124 L Seg Neuts % (Manual) Lymphocytes % (Manual) Seg Neutrophils # Man Lymphocytes # (Manual) Monocytes # (Manual) PT INR APTT Fibrinogen ABG pH POC ABG pCO2 POC ABG pO2 ABG pO2 ABG Base Excess ABG Hemoglobin ABG Oxyhemoglobin ABG Sodium ABG Potassium ABG Chloride ABG Glucose Carboxyhemoglobin Sodium 131 L Potassium Chloride 93.4 L Carbon Dioxide BUN 79 H Creatinine 4.7 H Glucose 122 H POC Glucose 108 H Lactic Acid Calcium 5.5 L* Ionized Calcium Phosphorus 5.70 H Magnesium 1.60 L AST Alkaline Phosphatase Total Protein Albumin Triglycerides Arterial Blood Glucose Arterial Blood Ionized Calcium Urine Creatinine Crossmatch 12/29/20 12/29/20 12/29/20 10:04 11:27 17:31 WBC RBC Hgb Hct MCV MCHC RDW Plt Count Seg Neuts % (Manual) Lymphocytes % (Manual) Seg Neutrophils # Man Lymphocytes # (Manual) Monocytes # (Manual) PT INR APTT Fibrinogen ABG pH POC ABG pCO2 POC ABG pO2 ABG pO2 ABG Base Excess ABG Hemoglobin ABG Oxyhemoglobin ABG Sodium ABG Potassium ABG Chloride ABG Glucose Carboxyhemoglobin Sodium Potassium Chloride Carbon Dioxide BUN Creatinine Glucose POC Glucose 107 H 112 H 110 H Lactic Acid Calcium Ionized Calcium Phosphorus Magnesium AST Alkaline Phosphatase Total Protein Albumin Triglycerides Arterial Blood Glucose Arterial Blood Ionized Calcium Urine Creatinine Crossmatch 12/30/20 12/30/20 12/30/20 03:31 08:06 17:39 WBC RBC Hgb Hct MCV MCHC RDW Plt Count Seg Neuts % (Manual) Lymphocytes % (Manual) Seg Neutrophils # Man Lymphocytes # (Manual) Monocytes # (Manual) PT INR APTT Fibrinogen ABG pH 7.261 L POC ABG pCO2 POC ABG pO2 123.1 H ABG pO2 ABG Base Excess ABG Hemoglobin 8.7 L ABG Oxyhemoglobin ABG Sodium 123.2 L ABG Potassium ABG Chloride 96.0 L ABG Glucose 112 H Carboxyhemoglobin Sodium 128 L Potassium Chloride 90.7 L Carbon Dioxide 21 L BUN 86 H Creatinine 4.9 H Glucose 107 H POC Glucose 134 H Lactic Acid Calcium 6.2 L Ionized Calcium Phosphorus 5.30 H Magnesium 1.50 L AST Alkaline Phosphatase Total Protein Albumin Triglycerides Arterial Blood Glucose 112 H Arterial Blood Ionized Calcium 3.2 L Urine Creatinine Crossmatch 12/30/20 12/31/20 12/31/20 22:45 02:14 04:40 WBC RBC Hgb Hct MCV MCHC RDW Plt Count Seg Neuts % (Manual) Lymphocytes % (Manual) Seg Neutrophils # Man Lymphocytes # (Manual) Monocytes # (Manual) PT INR APTT Fibrinogen ABG pH 7.267 L POC ABG pCO2 POC ABG pO2 ABG pO2 ABG Base Excess ABG Hemoglobin 8.0 L ABG Oxyhemoglobin 93.7 L ABG Sodium ABG Potassium ABG Chloride 95.0 L ABG Glucose 108 H Carboxyhemoglobin 1.7 H Sodium 126 L Potassium Chloride 90.3 L Carbon Dioxide 20 L BUN 70 H Creatinine 4.3 H Glucose 209 H POC Glucose 109 H Lactic Acid Calcium 6.6 L Ionized Calcium Phosphorus 4.70 H Magnesium 1.60 L AST Alkaline Phosphatase Total Protein Albumin Triglycerides 157 H Arterial Blood Glucose 108 H Arterial Blood Ionized Calcium 3.7 L Urine Creatinine Crossmatch 12/31/20 12/31/20 01/01/21 16:23 23:21 04:00 WBC 18.0 H RBC 2.75 L Hgb 7.7 L Hct 23.9 L MCV MCHC RDW 15.6 H Plt Count Seg Neuts % (Manual) 91.0 H Lymphocytes % (Manual) 6.0 L Seg Neutrophils # Man 16.4 H Lymphocytes # (Manual) 1.1 L Monocytes # (Manual) PT INR APTT Fibrinogen ABG pH 7.264 L POC ABG pCO2 POC ABG pO2 74.8 L ABG pO2 ABG Base Excess ABG Hemoglobin 7.1 L ABG Oxyhemoglobin 92.1 L ABG Sodium 124.9 L ABG Potassium ABG Chloride 95.0 L ABG Glucose 111 H Carboxyhemoglobin 1.7 H Sodium Potassium Chloride Carbon Dioxide BUN Creatinine Glucose POC Glucose 125 H Lactic Acid Calcium Ionized Calcium Phosphorus Magnesium AST Alkaline Phosphatase Total Protein Albumin Triglycerides Arterial Blood Glucose 111 H Arterial Blood Ionized Calcium 4.0 L Urine Creatinine Crossmatch 01/01/21 01/01/21 01/01/21 05:50 13:41 15:55 WBC RBC Hgb Hct MCV MCHC RDW Plt Count Seg Neuts % (Manual) Lymphocytes % (Manual) Seg Neutrophils # Man Lymphocytes # (Manual) Monocytes # (Manual) PT INR APTT Fibrinogen ABG pH 7.148 L 7.207 L POC ABG pCO2 53.1 H POC ABG pO2 57.3 L 138.4 H ABG pO2 ABG Base Excess ABG Hemoglobin 9.0 L 8.3 L ABG Oxyhemoglobin 83.2 L ABG Sodium 126.2 L 124.5 L ABG Potassium ABG Chloride 95.0 L 95.0 L ABG Glucose 96 H 120 H Carboxyhemoglobin Sodium 131 L Potassium Chloride 93.3 L Carbon Dioxide 21 L BUN 67 H Creatinine 4.2 H Glucose POC Glucose Lactic Acid Calcium 7.1 L Ionized Calcium Phosphorus Magnesium AST 60 H Alkaline Phosphatase Total Protein 4.8 L Albumin 1.4 L Triglycerides Arterial Blood Glucose 96 H 120 H Arterial Blood Ionized Calcium 4.1 L 3.9 L Urine Creatinine Crossmatch 01/01/21 01/01/21 01/02/21 17:09 23:24 03:47 WBC RBC Hgb Hct MCV MCHC RDW Plt Count Seg Neuts % (Manual) Lymphocytes % (Manual) Seg Neutrophils # Man Lymphocytes # (Manual) Monocytes # (Manual) PT INR APTT Fibrinogen ABG pH 7.276 L POC ABG pCO2 POC ABG pO2 173.6 H ABG pO2 ABG Base Excess ABG Hemoglobin 7 L ABG Oxyhemoglobin ABG Sodium 122.4 L ABG Potassium ABG Chloride 94.0 L ABG Glucose 118 H Carboxyhemoglobin Sodium Potassium Chloride Carbon Dioxide BUN Creatinine Glucose POC Glucose 124 H 119 H Lactic Acid Calcium Ionized Calcium Phosphorus Magnesium AST Alkaline Phosphatase Total Protein Albumin Triglycerides Arterial Blood Glucose 118 H Arterial Blood Ionized Calcium 4.0 L Urine Creatinine Crossmatch 01/02/21 01/02/21 01/02/21 05:33 08:00 08:00 WBC 19.7 H RBC 2.53 L Hgb 7.1 L Hct 22.0 L MCV MCHC RDW 16.4 H Plt Count Seg Neuts % (Manual) Lymphocytes % (Manual) Seg Neutrophils # Man Lymphocytes # (Manual) Monocytes # (Manual) PT INR APTT Fibrinogen ABG pH POC ABG pCO2 POC ABG pO2 ABG pO2 ABG Base Excess ABG Hemoglobin ABG Oxyhemoglobin ABG Sodium ABG Potassium ABG Chloride ABG Glucose Carboxyhemoglobin Sodium 127 L Potassium Chloride 89.3 L Carbon Dioxide 19 L BUN 82 H Creatinine 5.0 H Glucose 103 H POC Glucose 107 H Lactic Acid Calcium 7.8 L Ionized Calcium Phosphorus 6.40 H Magnesium AST 47 H Alkaline Phosphatase Total Protein 5.0 L Albumin 1.6 L Triglycerides Arterial Blood Glucose Arterial Blood Ionized Calcium Urine Creatinine Crossmatch 01/02/21 01/03/21 01/03/21 17:25 07:56 09:47 WBC 17.7 H RBC 2.19 L Hgb 6.2 L Hct 18.5 L* MCV MCHC RDW 16.1 H Plt Count Seg Neuts % (Manual) Lymphocytes % (Manual) Seg Neutrophils # Man Lymphocytes # (Manual) Monocytes # (Manual) PT INR APTT Fibrinogen ABG pH POC ABG pCO2 POC ABG pO2 ABG pO2 ABG Base Excess ABG Hemoglobin ABG Oxyhemoglobin ABG Sodium ABG Potassium ABG Chloride ABG Glucose Carboxyhemoglobin Sodium 130 L Potassium 3.5 L Chloride 90.3 L Carbon Dioxide BUN 68 H Creatinine 3.9 H Glucose 103 H POC Glucose 116 H Lactic Acid Calcium 8.0 L Ionized Calcium Phosphorus 4.80 H D Magnesium AST Alkaline Phosphatase Total Protein Albumin Triglycerides Arterial Blood Glucose Arterial Blood Ionized Calcium Urine Creatinine Crossmatch 01/03/21 01/03/21 01/04/21 11:00 19:00 03:12 WBC 17.0 H RBC 2.51 L Hgb 7.1 L Hct 21.5 L MCV MCHC RDW 16.6 H Plt Count Seg Neuts % (Manual) Lymphocytes % (Manual) Seg Neutrophils # Man Lymphocytes # (Manual) Monocytes # (Manual) PT INR APTT Fibrinogen ABG pH 7.463 H POC ABG pCO2 POC ABG pO2 72.2 L ABG pO2 ABG Base Excess ABG Hemoglobin 6.2 L ABG Oxyhemoglobin 91.8 L ABG Sodium 128.4 L ABG Potassium 3.3 L ABG Chloride 96.0 L ABG Glucose 112 H Carboxyhemoglobin Sodium Potassium Chloride Carbon Dioxide BUN Creatinine Glucose POC Glucose Lactic Acid Calcium Ionized Calcium Phosphorus Magnesium AST Alkaline Phosphatase Total Protein Albumin Triglycerides Arterial Blood Glucose 112 H Arterial Blood Ionized Calcium 4.3 L Urine Creatinine Crossmatch See Detail 01/04/21 01/04/21 01/04/21 05:16 06:20 06:20 WBC 18.5 H RBC 2.53 L Hgb 7.4 L Hct 21.9 L MCV MCHC RDW 15.8 H Plt Count Seg Neuts % (Manual) Lymphocytes % (Manual) Seg Neutrophils # Man Lymphocytes # (Manual) Monocytes # (Manual) PT INR APTT Fibrinogen ABG pH POC ABG pCO2 POC ABG pO2 ABG pO2 ABG Base Excess ABG Hemoglobin ABG Oxyhemoglobin ABG Sodium ABG Potassium ABG Chloride ABG Glucose Carboxyhemoglobin Sodium 135 L Potassium Chloride 95.2 L Carbon Dioxide BUN 56 H Creatinine 3.2 H Glucose 109 H POC Glucose 123 H Lactic Acid Calcium 7.6 L Ionized Calcium Phosphorus Magnesium AST Alkaline Phosphatase Total Protein Albumin Triglycerides Arterial Blood Glucose Arterial Blood Ionized Calcium Urine Creatinine Crossmatch 01/05/21 01/05/21 01/05/21 03:50 07:22 07:22 WBC 23.8 H RBC 2.93 L Hgb 8.2 L Hct 25.1 L MCV MCHC RDW 16.5 H Plt Count Seg Neuts % (Manual) Lymphocytes % (Manual) Seg Neutrophils # Man Lymphocytes # (Manual) Monocytes # (Manual) PT INR APTT Fibrinogen ABG pH POC ABG pCO2 POC ABG pO2 ABG pO2 136.8 H ABG Base Excess -2.3 L ABG Hemoglobin 6.9 L ABG Oxyhemoglobin ABG Sodium ABG Potassium ABG Chloride ABG Glucose Carboxyhemoglobin Sodium 134 L Potassium Chloride 93.3 L Carbon Dioxide BUN 77 H Creatinine 4.2 H Glucose 105 H POC Glucose Lactic Acid Calcium Ionized Calcium Phosphorus 4.90 H D Magnesium AST Alkaline Phosphatase Total Protein Albumin Triglycerides Arterial Blood Glucose Arterial Blood Ionized Calcium Urine Creatinine Crossmatch 01/05/21 01/05/21 01/05/21 11:02 14:06 15:37 WBC RBC Hgb Hct MCV MCHC RDW Plt Count Seg Neuts % (Manual) Lymphocytes % (Manual) Seg Neutrophils # Man Lymphocytes # (Manual) Monocytes # (Manual) PT INR APTT Fibrinogen ABG pH POC ABG pCO2 POC ABG pO2 332.3 H ABG pO2 ABG Base Excess ABG Hemoglobin 7.7 L ABG Oxyhemoglobin 98.7 H ABG Sodium 131.0 L ABG Potassium 3.3 L ABG Chloride 97.0 L ABG Glucose 118 H Carboxyhemoglobin Sodium Potassium Chloride Carbon Dioxide BUN Creatinine Glucose POC Glucose 118 H 111 H Lactic Acid Calcium Ionized Calcium Phosphorus Magnesium AST Alkaline Phosphatase Total Protein Albumin Triglycerides Arterial Blood Glucose 118 H Arterial Blood Ionized Calcium 4.4 L Urine Creatinine Crossmatch 01/05/21 01/06/21 01/06/21 23:18 04:00 04:20 WBC RBC Hgb Hct MCV MCHC RDW Plt Count Seg Neuts % (Manual) Lymphocytes % (Manual) Seg Neutrophils # Man Lymphocytes # (Manual) Monocytes # (Manual) PT INR APTT Fibrinogen ABG pH POC ABG pCO2 POC ABG pO2 230.5 H ABG pO2 ABG Base Excess ABG Hemoglobin 7.9 L ABG Oxyhemoglobin 98.5 H ABG Sodium 129.4 L ABG Potassium ABG Chloride 97.0 L ABG Glucose 117 H Carboxyhemoglobin Sodium 133 L Potassium Chloride 94.4 L Carbon Dioxide BUN 62 H Creatinine 3.6 H Glucose 110 H POC Glucose 110 H Lactic Acid Calcium 7.8 L Ionized Calcium Phosphorus Magnesium AST Alkaline Phosphatase Total Protein Albumin Triglycerides Arterial Blood Glucose 117 H Arterial Blood Ionized Calcium 4.5 L Urine Creatinine Crossmatch 01/06/21 01/06/21 01/06/21 05:28 09:00 11:00 WBC 15.2 H RBC 2.18 L Hgb 6.5 L Hct 21.8 L MCV 100 H MCHC 30 L RDW 18.5 H Plt Count Seg Neuts % (Manual) Lymphocytes % (Manual) Seg Neutrophils # Man Lymphocytes # (Manual) Monocytes # (Manual) PT INR APTT Fibrinogen ABG pH POC ABG pCO2 POC ABG pO2 ABG pO2 ABG Base Excess ABG Hemoglobin ABG Oxyhemoglobin ABG Sodium ABG Potassium ABG Chloride ABG Glucose Carboxyhemoglobin Sodium Potassium Chloride Carbon Dioxide BUN Creatinine Glucose POC Glucose 109 H Lactic Acid Calcium Ionized Calcium Phosphorus Magnesium AST Alkaline Phosphatase Total Protein Albumin Triglycerides Arterial Blood Glucose Arterial Blood Ionized Calcium Urine Creatinine Crossmatch See Detail 01/06/21 01/06/21 01/07/21 11:32 23:44 03:10 WBC 15.3 H RBC 2.30 L Hgb 6.7 L Hct 20.1 L MCV MCHC RDW 16.6 H Plt Count Seg Neuts % (Manual) Lymphocytes % (Manual) Seg Neutrophils # Man Lymphocytes # (Manual) Monocytes # (Manual) PT INR APTT Fibrinogen ABG pH POC ABG pCO2 POC ABG pO2 ABG pO2 ABG Base Excess ABG Hemoglobin ABG Oxyhemoglobin ABG Sodium ABG Potassium ABG Chloride ABG Glucose Carboxyhemoglobin Sodium Potassium Chloride Carbon Dioxide BUN Creatinine Glucose POC Glucose 113 H 118 H Lactic Acid Calcium Ionized Calcium Phosphorus Magnesium AST Alkaline Phosphatase Total Protein Albumin Triglycerides Arterial Blood Glucose Arterial Blood Ionized Calcium Urine Creatinine Crossmatch 01/07/21 01/07/21 01/07/21 03:10 04:17 05:06 WBC RBC Hgb Hct MCV MCHC RDW Plt Count Seg Neuts % (Manual) Lymphocytes % (Manual) Seg Neutrophils # Man Lymphocytes # (Manual) Monocytes # (Manual) PT INR APTT Fibrinogen ABG pH 7.272 L POC ABG pCO2 50.1 H POC ABG pO2 ABG pO2 ABG Base Excess ABG Hemoglobin 8.4 L ABG Oxyhemoglobin ABG Sodium 128.6 L ABG Potassium ABG Chloride 95.0 L ABG Glucose 109 H Carboxyhemoglobin Sodium 133 L Potassium Chloride 93.6 L Carbon Dioxide BUN 85 H Creatinine 3.9 H Glucose 112 H POC Glucose 106 H Lactic Acid Calcium Ionized Calcium Phosphorus 4.70 H D Magnesium AST Alkaline Phosphatase Total Protein Albumin Triglycerides Arterial Blood Glucose 109 H Arterial Blood Ionized Calcium Urine Creatinine Crossmatch 01/07/21 01/07/21 01/07/21 14:05 16:00 23:25 WBC RBC Hgb 8.1 L Hct 24.2 L MCV MCHC RDW Plt Count Seg Neuts % (Manual) Lymphocytes % (Manual) Seg Neutrophils # Man Lymphocytes # (Manual) Monocytes # (Manual) PT INR APTT Fibrinogen ABG pH POC ABG pCO2 POC ABG pO2 ABG pO2 ABG Base Excess ABG Hemoglobin 7.2 L ABG Oxyhemoglobin ABG Sodium 127.3 L ABG Potassium ABG Chloride 96.0 L ABG Glucose 98 H Carboxyhemoglobin Sodium Potassium Chloride Carbon Dioxide BUN Creatinine Glucose POC Glucose 106 H Lactic Acid Calcium Ionized Calcium Phosphorus Magnesium AST Alkaline Phosphatase Total Protein Albumin Triglycerides Arterial Blood Glucose 98 H Arterial Blood Ionized Calcium Urine Creatinine Crossmatch 01/08/21 01/08/21 01/08/21 03:22 05:30 23:22 WBC RBC Hgb Hct MCV MCHC RDW Plt Count Seg Neuts % (Manual) Lymphocytes % (Manual) Seg Neutrophils # Man Lymphocytes # (Manual) Monocytes # (Manual) PT INR APTT Fibrinogen ABG pH POC ABG pCO2 POC ABG pO2 71.3 L ABG pO2 ABG Base Excess ABG Hemoglobin 8.7 L ABG Oxyhemoglobin 92.2 L ABG Sodium 125.9 L ABG Potassium ABG Chloride 96.0 L ABG Glucose 124 H Carboxyhemoglobin Sodium Potassium Chloride Carbon Dioxide BUN Creatinine Glucose POC Glucose 118 H 110 H Lactic Acid Calcium Ionized Calcium Phosphorus Magnesium AST Alkaline Phosphatase Total Protein Albumin Triglycerides Arterial Blood Glucose 124 H Arterial Blood Ionized Calcium Urine Creatinine Crossmatch 01/08/21 01/08/21 01/09/21 Unknown Unknown 08:45 WBC 15.2 H RBC 2.62 L Hgb 7.6 L Hct 22.7 L MCV MCHC RDW 16.7 H Plt Count Seg Neuts % (Manual) 95.0 H Lymphocytes % (Manual) 3.0 L Seg Neutrophils # Man 14.4 H Lymphocytes # (Manual) 0.5 L Monocytes # (Manual) PT INR APTT Fibrinogen ABG pH POC ABG pCO2 POC ABG pO2 ABG pO2 ABG Base Excess ABG Hemoglobin ABG Oxyhemoglobin ABG Sodium ABG Potassium ABG Chloride ABG Glucose Carboxyhemoglobin Sodium 129 L 129 L Potassium Chloride 91.2 L 92.7 L Carbon Dioxide 21 L 19 L BUN 91 H 105 H Creatinine 4.0 H 4.4 H Glucose 115 H 107 H POC Glucose Lactic Acid Calcium Ionized Calcium Phosphorus 5.00 H Magnesium AST Alkaline Phosphatase Total Protein 5.3 L Albumin 1.6 L Triglycerides 166 H Arterial Blood Glucose Arterial Blood Ionized Calcium Urine Creatinine Crossmatch 01/09/21 01/09/21 01/10/21 10:10 23:51 04:00 WBC 14.1 H RBC 2.50 L Hgb 7.2 L Hct 21.6 L MCV MCHC RDW 16.5 H Plt Count Seg Neuts % (Manual) 92.0 H Lymphocytes % (Manual) 2.0 L Seg Neutrophils # Man 13.0 H Lymphocytes # (Manual) 0.3 L Monocytes # (Manual) PT INR APTT Fibrinogen ABG pH 7.273 L POC ABG pCO2 POC ABG pO2 ABG pO2 ABG Base Excess ABG Hemoglobin 8.7 L ABG Oxyhemoglobin ABG Sodium 126.2 L ABG Potassium 4.8 H ABG Chloride 96.0 L ABG Glucose 160 H Carboxyhemoglobin Sodium Potassium Chloride Carbon Dioxide BUN Creatinine Glucose POC Glucose 154 H Lactic Acid Calcium Ionized Calcium Phosphorus Magnesium AST Alkaline Phosphatase Total Protein Albumin Triglycerides Arterial Blood Glucose 160 H Arterial Blood Ionized Calcium Urine Creatinine Crossmatch 01/10/21 01/10/21 01/10/21 04:01 04:01 04:01 WBC 12.6 H RBC 2.89 L Hgb 8.1 L Hct 24.9 L MCV MCHC RDW 16.6 H Plt Count Seg Neuts % (Manual) 95.0 H Lymphocytes % (Manual) 3.0 L Seg Neutrophils # Man 12.0 H Lymphocytes # (Manual) 0.4 L Monocytes # (Manual) PT 15.4 H INR 1.17 H APTT 40.2 H Fibrinogen 817 H ABG pH POC ABG pCO2 POC ABG pO2 ABG pO2 ABG Base Excess ABG Hemoglobin ABG Oxyhemoglobin ABG Sodium ABG Potassium ABG Chloride ABG Glucose Carboxyhemoglobin Sodium 128 L Potassium Chloride 90.4 L Carbon Dioxide 19 L BUN 113 H Creatinine 4.5 H Glucose 162 H POC Glucose Lactic Acid Calcium Ionized Calcium Phosphorus 5.70 H Magnesium AST Alkaline Phosphatase Total Protein 6.2 L Albumin 2.1 L Triglycerides Arterial Blood Glucose Arterial Blood Ionized Calcium Urine Creatinine Crossmatch 01/10/21 01/10/21 01/11/21 05:31 11:45 04:00 WBC RBC Hgb Hct MCV MCHC RDW Plt Count Seg Neuts % (Manual) Lymphocytes % (Manual) Seg Neutrophils # Man Lymphocytes # (Manual) Monocytes # (Manual) PT INR APTT Fibrinogen ABG pH 7.311 L POC ABG pCO2 49.2 H POC ABG pO2 ABG pO2 ABG Base Excess ABG Hemoglobin 9.4 L ABG Oxyhemoglobin ABG Sodium 130.3 L ABG Potassium ABG Chloride 96.0 L ABG Glucose 104 H Carboxyhemoglobin Sodium Potassium Chloride Carbon Dioxide BUN Creatinine Glucose POC Glucose 150 H 145 H Lactic Acid Calcium Ionized Calcium Phosphorus Magnesium AST Alkaline Phosphatase Total Protein Albumin Triglycerides Arterial Blood Glucose 104 H Arterial Blood Ionized Calcium Urine Creatinine Crossmatch 01/11/21 01/11/21 01/12/21 04:45 17:29 05:51 WBC RBC Hgb Hct MCV MCHC RDW Plt Count Seg Neuts % (Manual) Lymphocytes % (Manual) Seg Neutrophils # Man Lymphocytes # (Manual) Monocytes # (Manual) PT INR APTT Fibrinogen ABG pH POC ABG pCO2 POC ABG pO2 ABG pO2 ABG Base Excess ABG Hemoglobin ABG Oxyhemoglobin ABG Sodium ABG Potassium ABG Chloride ABG Glucose Carboxyhemoglobin Sodium 134 L Potassium 3.5 L D Chloride 95.5 L Carbon Dioxide BUN 88 H Creatinine 3.5 H Glucose 103 H POC Glucose 109 H 114 H Lactic Acid Calcium Ionized Calcium Phosphorus Magnesium AST Alkaline Phosphatase Total Protein Albumin Triglycerides Arterial Blood Glucose Arterial Blood Ionized Calcium Urine Creatinine Crossmatch 01/12/21 01/12/21 01/12/21 10:00 10:00 11:56 WBC RBC Hgb Hct MCV MCHC RDW Plt Count Seg Neuts % (Manual) Lymphocytes % (Manual) Seg Neutrophils # Man Lymphocytes # (Manual) Monocytes # (Manual) PT INR APTT Fibrinogen ABG pH POC ABG pCO2 POC ABG pO2 ABG pO2 ABG Base Excess ABG Hemoglobin ABG Oxyhemoglobin ABG Sodium ABG Potassium ABG Chloride ABG Glucose Carboxyhemoglobin Sodium 136 L Potassium Chloride 95.2 L Carbon Dioxide BUN 102 H Creatinine 3.6 H Glucose 106 H POC Glucose 113 H Lactic Acid Calcium Ionized Calcium Phosphorus 4.90 H Magnesium AST Alkaline Phosphatase Total Protein Albumin Triglycerides 153 H Arterial Blood Glucose Arterial Blood Ionized Calcium Urine Creatinine Crossmatch 01/12/21 01/12/21 01/13/21 17:43 23:31 03:14 WBC RBC Hgb Hct MCV MCHC RDW Plt Count Seg Neuts % (Manual) Lymphocytes % (Manual) Seg Neutrophils # Man Lymphocytes # (Manual) Monocytes # (Manual) PT INR APTT Fibrinogen ABG pH 7.484 H POC ABG pCO2 POC ABG pO2 ABG pO2 ABG Base Excess ABG Hemoglobin 8.4 L ABG Oxyhemoglobin ABG Sodium 134.4 L ABG Potassium 3.1 L ABG Chloride ABG Glucose 117 H Carboxyhemoglobin Sodium Potassium Chloride Carbon Dioxide BUN Creatinine Glucose POC Glucose 113 H 108 H Lactic Acid Calcium Ionized Calcium Phosphorus Magnesium AST Alkaline Phosphatase Total Protein Albumin Triglycerides Arterial Blood Glucose 117 H Arterial Blood Ionized Calcium 4.5 L Urine Creatinine Crossmatch 01/13/21 01/13/21 01/13/21 04:56 05:00 05:00 WBC RBC 2.87 L Hgb 8.0 L Hct 24.4 L MCV MCHC RDW 17.2 H Plt Count Seg Neuts % (Manual) Lymphocytes % (Manual) Seg Neutrophils # Man Lymphocytes # (Manual) Monocytes # (Manual) PT INR APTT Fibrinogen ABG pH POC ABG pCO2 POC ABG pO2 ABG pO2 ABG Base Excess ABG Hemoglobin ABG Oxyhemoglobin ABG Sodium ABG Potassium ABG Chloride ABG Glucose Carboxyhemoglobin Sodium Potassium 3.0 L Chloride 97.6 L Carbon Dioxide BUN 69 H Creatinine 2.9 H Glucose 114 H POC Glucose 110 H Lactic Acid Calcium 8.0 L Ionized Calcium Phosphorus Magnesium AST Alkaline Phosphatase Total Protein Albumin Triglycerides Arterial Blood Glucose Arterial Blood Ionized Calcium Urine Creatinine Crossmatch
--- NOTE | 2021-01-13 10:13 | Procedure Note ---
Date of procedure: 01/13/21 Pre-op diagnosis: Renal Failure Post-op diagnosis: same Procedure: Right IJ vascath placement: Using ultrasound guidance and seldinger technique, a 15cm trialysis catheter was placed in the right IJ without immediate post op complications. All ports flush ed and good return from all 3. Sutured in and awaiting CXR to confirm placement. Anesthesia: local Surgeon: EVELYN GARCIA Estimated blood loss: none Pathology: none Disposition: ICU
[2021-01-13] MEDS: FAMOTIDINE 20 MG/2 ML INJ IV SCH (10:25)
--- NOTE | 2021-01-13 11:22 | XRay Report ---
CHEST 1 VIEW 01/13/2021 10:22 AM INDICATION / CLINICAL INFORMATION: verification of placement of vascath. COMPARISON: 01/10/2021 FINDINGS: SUPPORT DEVICES: Right IJ central venous catheter tip projects over the mid SVC. HEART / MEDIASTINUM: Stable. LUNGS / PLEURA: Stable diffuse patchy bilateral pulmonary opacities. No pneumothorax. ADDITIONAL FINDINGS: No significant additional findings. IMPRESSION: 1. Right IJ CVL appears appropriately position. Signer Name: Ebenezer Bustillos MD Signed: 01/13/2021 11:18 AM Workstation Name: [id number]
--- NOTE | 2021-01-13 12:01 | Progress Note ---
Assessment and Plan Cultures: 12/20/2020 blood culture: No growth 12/20/2020 urine culture: Usual skin giorgio 12/20/2020 tracheal aspirate culture: Mucor A/P: 60-year-old male with obesity, hypertension, tobacco abuse, coronary artery d isease, admitted to the hospital on 12/20/2020 with: #Septic shock: Resolved. No fever. Secondary to intra-abdominal source, peritonitis. Patient with necrotic bowel secondary to incarcerated ventral hernia. Status post exploratory laparotomy, extensive adhesiolysis, small bowel resection and peritoneal lavage along with ABThera VAC placement on 12/20/2020, replacement 12/29/2020. Off pressors. Last surgery abdomen closure with mesh 01/02/2021. Repeat CT 01/09/21 with large organized but bland appearing reactive fluid collection in anterior abdomen - seroma v/s hematoma. #JONI: Renally dose antibiotics. On hemodialysis. #Morbid obesity #Mucor in tracheal aspirate is likely colonization. No treatment needed currently. Recs: -continue off abx Dr. Marie covering the weekend. Please call with questions. Lissette Rizzo MD, FACP [facility] ([facility] O: [phone] F: [phone] Subjective Date of service: 01/13/21 Principal diagnosis: SBO and necrosis of large part of small intestine Interval history: Afebrile. Remains on the vent. Objective - Exam Narrative Exam: Physical Exam: Constitutional: sedated, intubated, on the vent Head, Ears, Nose: Normocephalic, atraumatic. External ears, nose normal Eyes: Conjunctivae/corneas clear. No icterus. No ptosis. Neck: intubated Oral: intubated Cardiovascular: S1, S2 + Respiratory: AE fair bilaterally and equal GI: midline dressing + bowel sounds + Musculoskeletal: scrotal edema Skin: No rash or abscess Hem/Lymphatic: No palpable cervical or supraclavicular nodes. No lymphangitis Psych: no agitation Neurological: sedated, intubated, on the vent, exam limited - Constitutional Vitals: Vital Signs Temp Pulse Resp BP Pulse Ox 98.9 F 91 H 30 H 194/96 98 01/13/21 03:17 01/13/21 11:26 01/13/21 08:00 01/13/21 11:26 01/13/21 11:26 Temperature -Last 24 Hours Temperature 98.9 F Temperature 98.3 F Temperature 98.7 F Temperature 98.5 F Temperature 98.4 F - Labs CBC & Chem 7: 01/13/21 05:00 01/13/21 05:00 Labs: Abnormal lab results 01/12/21 01/12/21 01/13/21 Range/Units 17:43 23:31 03:14 RBC (3.65-5.03) M/mm3 Hgb (11.8-15.2) gm/dl Hct (35.5-45.6) % RDW (13.2-15.2) % ABG pH 7.484 H (7.320-7.450) ABG Hemoglobin 8.4 L (12.0-17.5) ABG Sodium 134.4 L (136.0-145.0) mmol/L ABG Potassium 3.1 L (3.40-4.50) mmol/L ABG Glucose 117 H (65-95) mg/dL Potassium (3.6-5.0) mmol/L Chloride (98-107) mmol/L BUN (9-20) mg/dL Creatinine (0.8-1.3) mg/dL Glucose (75-100) mg/dL POC Glucose 113 H 108 H (70-105) mg/dL Calcium (8.4-10.2) mg/dL Arterial Blood Glucose 117 H (65-95) mg/dL Arterial Blood Ionized Calcium 4.5 L (4.6-5.3) mg/dL 01/13/21 01/13/21 01/13/21 Range/Units 04:56 05:00 05:00 RBC 2.87 L (3.65-5.03) M/mm3 Hgb 8.0 L (11.8-15.2) gm/dl Hct 24.4 L (35.5-45.6) % RDW 17.2 H (13.2-15.2) % ABG pH (7.320-7.450) ABG Hemoglobin (12.0-17.5) ABG Sodium (136.0-145.0) mmol/L ABG Potassium (3.40-4.50) mmol/L ABG Glucose (65-95) mg/dL Potassium 3.0 L (3.6-5.0) mmol/L Chloride 97.6 L (98-107) mmol/L BUN 69 H (9-20) mg/dL Creatinine 2.9 H (0.8-1.3) mg/dL Glucose 114 H (75-100) mg/dL POC Glucose 110 H (70-105) mg/dL Calcium 8.0 L (8.4-10.2) mg/dL Arterial Blood Glucose (65-95) mg/dL Arterial Blood Ionized Calcium (4.6-5.3) mg/dL
--- NOTE | 2021-01-13 12:38 | Progress Note ---
Assessment and Plan POD#26 s/p ex lap and small bowel resection for necrotic bowel secondary to incarcerated ventral hernia left with open abdomen. POD#23 s/p abdominal exploration with segmental small bowel resection. abthera placement POD#20 s/p abdominal exploration, small bowel resection for ischemia, abthera placement POD#17 s/p abdominal exploration with small bowel anastamosis and abthera vac placement POD#13 s/p abdomen closure with mesh Afebrile and stable Renal failure, continue dialysis per nephrology Respiratory insufficiency, wean to extubation per orthopedics pediatric physician Anemia likely due to illness and procedural losses. No clinical signs of iden tifiable active bleeding. Spoke with interventional radiology who reviewed CAT scan who feels that the fluid collection is likely reactive and likely will absorb on its own. As long as patient remains stable, afebrile we will hold off on sampling or draining collection. If patient shows decrease in blood count again that is significant, advised to order CT angio. Continue supportive care. Pt getting evaluated by LTACs. Prognosis is guarded. Subjective Date of service: 01/13/21 Narrative: no acute events over night. Objective Vital Signs - 12hr 01/13/21 01/13/21 01/13/21 01:00 01:30 02:00 Temperature Pulse Rate 81 93 H 87 Pulse Rate [ From Monitor] Respiratory 17 27 H 26 H Rate Blood Pressure 189/94 166/86 195/77 O2 Sat by Pulse 99 99 100 Oximetry 01/13/21 01/13/21 01/13/21 02:30 03:00 03:17 Temperature 98.9 F Pulse Rate 84 88 Pulse Rate [ From Monitor] Respiratory 25 H 28 H Rate Blood Pressure 202/97 179/91 O2 Sat by Pulse 98 97 Oximetry 01/13/21 01/13/21 01/13/21 03:22 03:23 03:30 Temperature Pulse Rate 84 91 H 86 Pulse Rate [ From Monitor] Respiratory 27 H Rate Blood Pressure 193/90 193/90 193/90 O2 Sat by Pulse 99 98 Oximetry 01/13/21 01/13/21 01/13/21 04:00 04:30 05:00 Temperature Pulse Rate 98 H 93 H 90 Pulse Rate [ 96 H From Monitor] Respiratory 24 28 H 28 H Rate Blood Pressure 178/106 155/83 147/82 O2 Sat by Pulse 99 98 98 Oximetry 01/13/21 01/13/2121 05:31 06:01 06:30 Temperature Pulse Rate 103 H 93 H 96 H Pulse Rate [ From Monitor] Respiratory 27 H 17 19 Rate Blood Pressure 168/103 164/91 190/104 O2 Sat by Pulse 97 98 98 Oximetry 01/13/21 01/13/21 01/13/21 07:00 07:04 07:31 Temperature Pulse Rate 94 H 94 H 102 H Pulse Rate [ From Monitor] Respiratory 22 26 H Rate Blood Pressure 210/104 210/104 180/94 O2 Sat by Pulse 98 97 Oximetry 01/13/21 01/13/21 01/13/21 07:41 08:00 08:30 Temperature Pulse Rate 98 H 98 H 92 H Pulse Rate [ 98 H From Monitor] Respiratory 30 H 16 Rate Blood Pressure 166/97 165/87 163/86 O2 Sat by Pulse 98 98 98 Oximetry 01/13/21 01/13/21 01/13/21 09:00 09:30 10:00 Temperature Pulse Rate 96 H 91 H 99 H Pulse Rate [ From Monitor] Respiratory 28 H 26 H 31 H Rate Blood Pressure 185/98 165/89 173/83 O2 Sat by Pulse 98 98 99 Oximetry 01/13/21 01/13/21 01/13/21 10:30 11:00 11:26 Temperature Pulse Rate 91 H Pulse Rate [ From Monitor] Respiratory Rate Blood Pressure 177/94 194/96 194/96 O2 Sat by Pulse 98 97 98 Oximetry 01/13/21 01/13/21 11:30 12:00 Temperature Pulse Rate Pulse Rate [ From Monitor] Respiratory Rate Blood Pressure 174/91 213/105 O2 Sat by Pulse 98 98 Oximetry - General physical appearance well developed, well nourished - Respiratory normal expansion, normal respiratory effort - Abdomen soft, other (incision c/d/i, some superficial skin sloughing, serous drainage in LAURA drains) - Genitourinary other (scrotal swelling) - Labs 01/13/21 05:00 01/13/21 05:00 Diabetes panel 01/13/21 Range/Units 05:00 Sodium 138 (137-145) mmol/L Potassium 3.0 L (3.6-5.0) mmol/L Chloride 97.6 L (98-107) mmol/L Carbon Dioxide 26 (22-30) mmol/L BUN 69 H (9-20) mg/dL Creatinine 2.9 H (0.8-1.3) mg/dL Glucose 114 H (75-100) mg/dL Calcium 8.0 L (8.4-10.2) mg/dL Calcium panel 01/13/21 Range/Units 05:00 Calcium 8.0 L (8.4-10.2) mg/dL Pituitary panel 01/13/21 Range/Units 05:00 Sodium 138 (137-145) mmol/L Potassium 3.0 L (3.6-5.0) mmol/L Chloride 97.6 L (98-107) mmol/L Carbon Dioxide 26 (22-30) mmol/L BUN 69 H (9-20) mg/dL Creatinine 2.9 H (0.8-1.3) mg/dL Glucose 114 H (75-100) mg/dL Calcium 8.0 L (8.4-10.2) mg/dL Adrenal panel 01/13/21 Range/Units 05:00 Sodium 138 (137-145) mmol/L Potassium 3.0 L (3.6-5.0) mmol/L Chloride 97.6 L (98-107) mmol/L Carbon Dioxide 26 (22-30) mmol/L BUN 69 H (9-20) mg/dL Creatinine 2.9 H (0.8-1.3) mg/dL Glucose 114 H (75-100) mg/dL Calcium 8.0 L (8.4-10.2) mg/dL
--- NOTE | 2021-01-13 12:52 | Progress Note ---
Assessment and Plan Assessment and plan: 60-year-old male with obesity, hypertension, nicotine dependence, PVD s/p stent placement on dual antiplatelet therapy, hyperlipidemia, OA, GERD, ventral hernia and small bowel obstruction who was admitted with small bowel obstruction and peritonitis Septic Shock, POA (presented with leukocytosis, tachycardia, tachypnea,febrile and evidence of peritonitis) HPI -12/20 CT abdomen/pelvis showed high-grade small bowel obstruction related to severe complex ventral abdominal wall hernias, progressed in appearance from prior exam from 09/12/2020 without evidence of pneumonitis or pneumoperitoneum, patchy bibasilar airspace disease concern for atypical infectious process/pneumonitis --s/p ex lap, extensive lysis of adhesions, small bowel re section (removal of 70 cm necrotic small bowel segment), peritoneal lavage and ABThera abdominal wound VAC placement -12/23 s/p abdominal exploration, small bowel resection, peritoneal lavage, ABThera wound VAC placement -12/26 s/p ex lap, small bowel resection, peritoneal lavage, ABThera wound VAC placement -12/27 s/p ex lap, extensive lysis of adhesions, small bowel resection (removal of 70 cm necrotic small bowel segment), peritoneal lavage and ABThera abdominal wound VAC placement. -12/29 s/p ex lap, small bowel resection, small bowel anastomosis and ABThera wound VAC placement -01/01 s/p myocutaneous flap creation, abdominal wall component separation and placement of phasix mesh with surgery yesterday where his abdomen was closed and 2 LAURA drains were placed on either side of his midline between fascia and SQ tissue. -12/30 initiated on HD by nephro -01/03 RBC x2 -01/06 RBC -01/07 RBC -01/09 stool pos for guiac; CT Chest/abd/pelvis -01/10: Patient this morning with elevated BP, likely secondary to pain vs ?Hx of Htn, Hydralazine PRN ordered and added to the patient, will monitor. Continue pain control. Wound care management and vent weaning when ok with surgery and Hr Assistant 01/12: Continue supportive care including pain control. Monitor for bowel movement. Continue off antibiotics per ID monitor. Cover Machine Operator following for HD. 01/13/21 patient is seen and examined. Patient is still on vent. Wean to extubate as per critical care. Patient is off antibiotic as per infectious disease. Status post dialysis catheter placed in the right IJ. HD as per nephrology. Continue current management. Recheck CBC BMP in the morning. Problem List COVID-19 PUI, ruled out Small bowel obstruction with peritonitis Ventral hernia s/p repair Leukocytosis Anemia Hyponatremia Hypochloremia Acute Kidney Injury, on HD Obesity Hypertension Nicotine dependence CAD s/p stent placement Hyperlipidemia Osteoarthritis GERD medical non adherence Systems Exam NEURO- uremic; sedated; generalized weakness; post op pain; high risk delirium opens eyes; nods appropriately; following commands PERRL generalized weakness fentanyl weaned off overnight now on dex and propofol - low doses dex does make pt bradycardic RASS goal neg 4 PRN tylenol for pain NOK mother - pt's brother was updated on plan of care case management following for d/c planning CV- nap SB-SR As pt is awake more his bp has increased PRN hydral RESP- post op resp failure remains ventilated on CMV [id number] daily ABG wean as tolerated to PS trails intubated 12/20 if fails to extubate soon - likely trach ABG daily and PRN GI- sp SBO with exlap repair; protein isha malnutrition TF at 10- tolerating well TPN nutrition following LAURA x 2/abd drains with minimal outpput continue to trend output Gen surg following CT chest abd and pelvis today with PO and IV contrast-01/09 see report stooling NM daily dulclox reglan daily pepcid scheduled - JONI requiring HD; hyponatremia; hyperK; uremia haley strict I/O trending electrolytes nephrology following HD usually M/W/F HD today - sp contrast -cleaned no UF- tolerated well kidney function seems to be returning pt was net neg 1.7L over the last 24 hurs- and he made 2.8L of urine Na 128 - continue to monitor; post HD today AM labs ordered HEME- post op anemia SQH VTE RBC x 2 on 01/03; RBC x 1 on 01/06 and RBC x 1 on 01/07 -- see hgb trend; not appropriate response Hgb stable today at 8.2 Gen surg has discussed with IR- will monitor for now- if there is a dec in Hgb will consider CTA abd/pelvis and IR intervention coags normal CBC in AM ID- leukocytosis ID following no antibiotics at this time trend WBC and temp curve consider rotation of vascath if concern for infection 6/2 covid neg 6/2 Hep. 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 The aggregate critical care time was [60] minutes. This time is in addition to time spent performing reported procedures but includes the following: [x] Data Review and interpretation [x] Patient assessment and monitoring of vital signs [x] Documentation [x] Medication orders and management History Interval history: Patient is seen and examined Lab and medication reviewed Patient is still on vent BP is 213/105 Hospitalist Physical - Constitutional Vitals: Temp Pulse Resp BP Pulse Ox 98.9 F 91 H 31 H 213/105 98 01/13/21 03:17 01/13/21 11:26 01/13/21 10:00 01/13/21 12:00 01/13/21 12:00 General appearance: Present: mild distress, well-nourished, obese, other (sedated) - EENT Eyes: Present: PERRL, EOM intact ENT: hearing intact - Neck Neck: Present: supple, normal ROM - Respiratory Respiratory effort: labored Respiratory: bilateral: diminished - Cardiovascular Rhythm: regular - Extremities Extremities: no ischemia Extremity abnormal: edema - Abdominal General gastrointestinal: soft, non-tender, other (Abdominal Binder and midline dressing with drainage tubes noted. ) - Integumentary Integumentary: Present: clear, warm - Psychiatric Psychiatric: other (On vent ) - Neurologic Neurologic: other (On vent) HEART Score - HEART Score EKG: Normal Age: < 45 Risk factors: No known risk factors Troponin: Troponin T < 0.010 ng/mL (0.00-0.029) 12/20/20 13:58 Troponin: < normal limit - Critical Actions Critical Actions: 0-3 pts:0.9-1.7%risk of adverse cardiac event.Candidate for discharge Results - Labs CBC & Chem 7: 01/13/21 05:00 01/13/21 05:00 Labs: Laboratory Last Values WBC 10.6 K/mm3 (4.5-11.0) 01/13/21 05:00 RBC 2.87 M/mm3 (3.65-5.03) L 01/13/21 05:00 Hgb 8.0 gm/dl (11.8-15.2) L 01/13/21 05:00 Hct 24.4 % (35.5-45.6) L 01/13/21 05:00 MCV 85 fl (84-94) 01/13/21 05:00 MCH 28 pg (28-32) 01/13/21 05:00 MCHC 33 % (32-34) 01/13/21 05:00 RDW 17.2 % (13.2-15.2) H 01/13/21 05:00 Plt Count 274 K/mm3 (140-440) 01/13/21 05:00 Add Manual Diff Complete 01/10/21 04:01 Total Counted 100 01/10/21 04:01 Seg Neutrophils % Unit Technician 01/10/21 04:01 Seg Neuts % (Manual) 95.0 % (40.0-70.0) H 01/10/21 04:01 Band Neutrophils % 2.0 % 01/10/21 04:01 Lymphocytes % (Manual) 3.0 % (13.4-35.0) L 01/10/21 04:01 Monocytes % (Manual) 1.0 % (0.0-7.3) 01/09/21 10:10 Metamyelocytes % 1.0 % 01/09/21 10:10 Myelocytes % 1.0 % 01/09/21 10:10 Nucleated RBC % Not Reportable 01/10/21 04:01 Seg Neutrophils # Man 12.0 K/mm3 (1.8-7.7) H 01/10/21 04:01 Band Neutrophils # 0.3 K/mm3 01/10/21 04:01 Lymphocytes # (Manual) 0.4 K/mm3 (1.2-5.4) L 01/10/21 04:01 Abs React Lymphs (Man) 0.0 K/mm3 01/10/21 04:01 Monocytes # (Manual) 0.0 K/mm3 (0.0-0.8) 01/10/21 04:01 Eosinophils # (Manual) 0.0 K/mm3 (0.0-0.4) 01/10/21 04:01 Basophils # (Manual) 0.0 K/mm3 (0.0-0.1) 01/10/21 04:01 Metamyelocytes # 0.0 K/mm3 01/10/21 04:01 Myelocytes # 0.0 K/mm3 01/10/21 04:01 Promyelocytes # 0.0 K/mm3 01/10/21 04:01 Blast Cells # 0.0 K/mm3 01/10/21 04:01 WBC Morphology Not Reportable 01/10/21 04:01 Hypersegmented Neuts Not Reportable 01/10/21 04:01 Hyposegmented Neuts Not Reportable 01/10/21 04:01 Hypogranular Neuts Not Reportable 01/10/21 04:01 Smudge Cells Not Reportable 01/10/21 04:01 Toxic Granulation Not Reportable 01/10/21 04:01 Toxic Vacuolation Not Reportable 01/10/21 04:01 Dohle Bodies Not Reportable 01/10/21 04:01 Pelger-Huet Anomaly Not Reportable 01/10/21 04:01 Mirian Rods Not Reportable 01/10/21 04:01 Platelet Estimate Consistent w auto 01/10/21 04:01 Clumped Platelets Not Reportable 01/10/21 04:01 Plt Clumps, EDTA Not Reportable 01/10/21 04:01 Large Platelets Not Reportable 01/10/21 04:01 Giant Platelets Not Reportable 01/10/21 04:01 Platelet Satelliting Not Reportable 01/10/21 04:01 Plt Morphology Comment Not Reportable 01/10/21 04:01 RBC Morphology Not Reportable 01/10/21 04:01 Dimorphic RBCs Not Reportable 01/10/21 04:01 Polychromasia Not Reportable 01/10/21 04:01 Hypochromasia Few 01/10/21 04:01 Poikilocytosis Not Reportable 01/10/21 04:01 Anisocytosis Few 01/10/21 04:01 Microcytosis Few 01/10/21 04:01 Macrocytosis Not Reportable 01/10/21 04:01 Spherocytes Not Reportable 01/10/21 04:01 Pappenheimer Bodies Not Reportable 01/10/21 04:01 Sickle Cells Not Reportable 01/10/21 04:01 Target Cells Not Reportable 01/10/21 04:01 Tear Drop Cells Not Reportable 01/10/21 04:01 Ovalocytes Not Reportable 01/10/21 04:01 Helmet Cells Not Reportable 01/10/21 04:01 [place] Bodies Not Reportable 01/10/21 04:01 Lowman Rings Not Reportable 01/10/21 04:01 Jonathan Cells Not Reportable 01/10/21 04:01 Bite Cells Not Reportable 01/10/21 04:01 Crenated Cell Not Reportable 01/10/21 04:01 Elliptocytes Not Reportable 01/10/21 04:01 Acanthocytes (Spur) Not Reportable 01/10/21 04:01 Rouleaux Not Reportable 01/10/21 04:01 Hemoglobin C Crystals Not Reportable 01/10/21 04:01 Schistocytes Not Reportable 01/10/21 04:01 Malaria parasites Not Reportable 01/10/21 04:01 Dylon Bodies Not Reportable 01/10/21 04:01 Hem Pathologist Commnt No 01/10/21 04:01 PT 15.4 Sec. (12.2-14.9) H 01/10/21 04:01 INR 1.17 (0.87-1.13) H 01/10/21 04:01 APTT 40.2 Sec. (24.2-36.6) H 01/10/21 04:01 Fibrinogen 817 mg/dl (211-480) H 01/10/21 04:01 ABG pH 7.484 (7.320-7.450) H 01/13/21 03:14 POC ABG pCO2 34.8 mmHg (32.0-48.0) 01/13/21 03:14 ABG pCO2 37.9 mm Hg 01/05/21 03:50 POC ABG pO2 104.0 mmHg (83-108) 01/13/21 03:14 ABG pO2 136.8 mm Hg (80.0-90.0) H 01/05/21 03:50 POC ABG HCO3 25.6 01/13/21 03:14 ABG HCO3 22.4 mmol/L (20.0-26.0) 01/05/21 03:50 ABG O2 Saturation 98.3 (0-100) 01/13/21 03:14 ABG O2 Content 9.8 (0.0-44) 01/05/21 03:50 POC ABG Base Excess 2.1 01/13/21 03:14 ABG Base Excess -2.3 mmol/L (-2.0-3.0) L 01/05/21 03:50 ABG Hemoglobin 8.4 (12.0-17.5) L 01/13/21 03:14 ABG Oxyhemoglobin 97.0 (94-98) 01/13/21 03:14 ABG Carboxyhemoglobin 1.5 % (0.0-5.0) 01/05/21 03:50 ABG Methemoglobin 0.3 (0.0-1.5) 01/13/21 03:14 ABG Sodium 134.4 mmol/L (136.0-145.0) L 01/13/21 03:14 ABG Potassium 3.1 mmol/L (3.40-4.50) L 01/13/21 03:14 ABG Chloride 99.0 mmol/L (98-107) 01/13/21 03:14 ABG Glucose 117 mg/dL (65-95) H 01/13/21 03:14 Oxyhemoglobin 96.7 % (95.0-99.0) 01/05/21 03:50 Carboxyhemoglobin 1.0 (0.5-1.5) 01/13/21 03:14 FiO2 50 % 01/05/21 03:50 FiO2 % 35.0 01/13/21 03:14 Sodium 138 mmol/L (137-145) 01/13/21 05:00 Potassium 3.0 mmol/L (3.6-5.0) L 01/13/21 05:00 Chloride 97.6 mmol/L (98-107) L 01/13/21 05:00 Carbon Dioxide 26 mmol/L (22-30) 01/13/21 05:00 Anion Gap 17 mmol/L 01/13/21 05:00 BUN 69 mg/dL (9-20) H 01/13/21 05:00 Creatinine 2.9 mg/dL (0.8-1.3) H 01/13/21 05:00 Estimated GFR 22 ml/min 01/13/21 05:00 BUN/Creatinine Ratio 24 % 01/13/21 05:00 Glucose 114 mg/dL (75-100) H 01/13/21 05:00 POC Glucose 111 mg/dL (70-105) H 01/13/21 12:09 Lactic Acid 1.70 mmol/L (0.7-2.0) 12/20/20 16:20 Calcium 8.0 mg/dL (8.4-10.2) L 01/13/21 05:00 Ionized Calcium 3.3 mg/dL (4.8-5.6) L 12/27/20 14:40 Phosphorus 4.90 mg/dL (2.5-4.5) H 01/12/21 10:00 Magnesium 1.80 mg/dL (1.7-2.3) 01/12/21 10:00 Total Bilirubin 0.50 mg/dL (0.1-1.2) 01/10/21 04:01 AST 22 units/L (5-40) 01/10/21 04:01 ALT 19 units/L (7-56) 01/10/21 04:01 Alkaline Phosphatase 117 units/L (35-129) 01/10/21 04:01 Troponin T < 0.010 ng/mL (0.00-0.029) 12/20/20 13:58 Total Protein 6.2 g/dL (6.3-8.2) L 01/10/21 04:01 Albumin 2.1 g/dL (3.9-5) L 01/10/21 04:01 Albumin/Globulin Ratio 0.5 % 01/10/21 04:01 Triglycerides 153 mg/dL (2-149) H 01/12/21 10:00 Arterial Blood Glucose 117 mg/dL (65-95) H 01/13/21 03:14 Arterial Blood Ionized Calcium 4.5 mg/dL (4.6-5.3) L 01/13/21 03:14 Urine Color Yellow (Yellow) 12/23/20 12:15 Urine Turbidity Cloudy (Clear) 12/23/20 12:15 Urine pH 5.0 (5.0-7.0) 12/23/20 12:15 Ur Specific [place] 1.019 (1.003-1.030) 12/23/20 12:15 Urine Protein <15 mg/dl mg/dL (Negative) 12/23/20 12:15 Urine Glucose (UA) Neg mg/dL (Negative) 12/23/20 12:15 Urine Ketones Neg mg/dL (Negative) 12/23/20 12:15 Urine Blood Sm (Negative) 12/23/20 12:15 Urine Nitrite Neg (Negative) 12/23/20 12:15 Urine Bilirubin Neg (Negative) 12/23/20 12:15 Urine Urobilinogen < 2.0 mg/dL (<2.0) 12/23/20 12:15 Ur Leukocyte Esterase Neg (Negative) 12/23/20 12:15 Urine WBC (Auto) 5.0 /HPF (0.0-6.0) 12/23/20 12:15 Urine RBC (Auto) 2.0 /HPF (0.0-6.0) 12/23/20 12:15 U Epithel Cells (Auto) < 1.0 /HPF (0-13.0) 12/20/20 Unknown Urine Bacteria (Auto) 1+ /HPF (Negative) 12/23/20 12:15 Triple Phos Crystals 2+ 12/23/20 12:15 Hyaline Casts 19 /LPF 12/20/20 Unknown Urine Mucus Few /HPF 12/23/20 12:15 Urine Eosinophils None seen (None Seen) 12/23/20 12:15 Urine Creatinine 78.1 mg/dL (0.1-20.0) H 12/23/20 12:15 Urine Sodium 13 mmol/L 12/23/20 12:15 Fraction Sodium Excret 0.2 12/23/20 12:15 Random Vancomycin 7.9 ug/mL (0-40.0) 12/23/20 12:15 Coronavirus (PCR) Negative (Negative) 12/21/20 Unknown Hepatitis A IgM Ab Non-reactive (NonReactive) 12/30/20 14:40 Hep Bs Antigen Non-reactive (Negative) 12/30/20 14:40 Hep B Core IgM Ab Non-reactive (NonReactive) 12/30/20 14:40 Hepatitis C Antibody Non-reactive (NonReactive) 12/30/20 14:40 Blood Type A NEGATIVE 01/06/21 11:00 Antibody Screen Negative 01/06/21 11:00 Crossmatch See Detail 01/06/21 11:00 Haley/IV: Voiding Method Indwelling Catheter Active Medications - Current Medications Current Medications: Generic Name Dose Route Start Last Admin Trade Name Freq PRN Reason Stop Dose Admin Acetaminophen 650 mg 12/21/20 11:51 12/25/20 20:35 Acetaminophen 650 Mg Rect Supp NM 650 mg Q4H PRN Administration TEMP >/=100.4 Lipase/Protease/Amylase 1 each 01/07/21 08:44 Lipase 10,500/Protease 25,000/Amylase 43,750 (Units) Dr Maharaj FEEDTUBE PRN PRN For Clogged Feeding Tube Bisacodyl 10 mg 12/30/20 11:00 01/13/21 10:25 Bisacodyl 10 Mg Rect Supp NM 10 mg QDAY ASCENCION Administration Dextrose 50 ml 12/24/20 10:49 Dextrose 50% In Water (25gm) 50 Ml Syringe IV Q30MIN PRN Hypoglycemia Protocol Famotidine 20 mg 12/26/20 10:00 01/13/21 10:25 Famotidine 20 Mg/2 Ml Inj IV 20 mg DAILY ASCENCION Administration Fentanyl 1 applic 01/11/21 14:00 01/11/21 14:05 Fentanyl 50 Mcg/Hr Patch 72hr TD 1 applic Q3D ASCENCION Administration Heparin Sodium (Porcine) 5,000 unit 01/06/21 14:00 01/13/21 06:16 Heparin 5,000 Unit/1 Ml Vial SUB-Q 5,000 unit Q8HR ASCENCION Administration Hydralazine HCl 10 mg 01/09/21 16:13 01/13/21 07:04 Hydralazine 20 Mg/1 Ml Inj IV 10 mg Q4H PRN Administration Hypertension Hydromorphone HCl 1 mg 01/11/21 14:00 01/13/21 10:25 Hydromorphone 1 Mg/1 Ml Inj IV 1 mg Q4HR ASCENCION Administration Hydromorphone HCl 0.5 mg 01/12/21 10:10 01/13/21 09:08 Hydromorphone 1 Mg/1 Ml Inj IV 0.5 mg Q4H PRN Administration Pain , Severe (7-10) Hydromorphone HCl 0.25 mg 01/12/21 10:11 Hydromorphone 1 Mg/1 Ml Inj IV Q4H PRN Pain, Moderate (4-6) Hydrophilic Ointment 1 applic 12/20/20 21:58 Lip Therapy Vaseline TP Q2HR PRN Dry Lips Propofol 1,000 mg in 100 mls @ 3.606 mls/hr 12/20/20 22:00 01/13/21 09:00 Diprivan 10 Mg/Ml IV 40 mcg/kg/min TITR ASCENCION 28.848 mls/hr Administration Protocol 5 MCG/KG/MIN Dexmedetomidine HCl 400 mcg/ 104 mls @ 7.322 mls/hr 01/04/21 11:00 01/13/21 10:38 Sodium Chloride IV 1 mcg/kg/hr TITRATE ASCENCION 36.608 mls/hr Administration Protocol 0.2 MCG/KG/HR Sodium Chloride 100 mls @ 999 mls/hr 01/10/21 09:08 Nacl 0.9% IV MARILU PRN Hypotension Nicardipine HCl 50 mg/ Sodium 250 mls @ 25 mls/hr 01/11/21 09:00 Chloride IV TITR ASCENCION Protocol 5 MG/HR Amino Acids/Electrolytes/Dextrose 1,999.92 mls @ 83.33 mls/hr 01/12/21 20:00 01/12/21 19:20 Tpn Adult IV 01/13/21 19:59 83.33 mls/hr DAILY@1999 [facility] Administration Protocol Insulin Human Regular 0 units 12/28/20 00:00 01/13/21 06:23 Insulin Regular, Human 100 Units/1 Ml SUB-Q Not Given Q6H [facility] Protocol Metoclopramide HCl 5 mg 01/09/21 18:00 01/13/21 06:17 Metoclopramide 10 Mg/2 Ml Inj IV 5 mg Q6HR ASCENCION Administration Multi-Ingred Cream/Lotion/Oil/Oint 1 applic 12/20/20 21:58 01/03/21 01:13 Mineral Oil/Petrolatum, White Ophth Oint 3.5 Gm OU 1 applic Q4HR PRN Administration Dry Eye(s) Ondansetron HCl 4 mg 01/11/21 08:09 Ondansetron 4 Mg/2 Ml Inj IV Q8H PRN Nausea And Vomiting Simple Syrup 15 ml 01/07/21 08:44 Simple Syrup 15 Ml FEEDTUBE PRN PRN Hypoglycemia Simple Syrup 30 ml 01/07/21 08:44 Simple Syrup 15 Ml FEEDTUBE PRN PRN Hypoglycemia Sodium Bicarbonate 325 mg 01/07/21 08:44 Sodium Bicarbonate 325 Mg Tab FEEDTUBE PRN PRN For Clogged Feeding Tube Sodium Chloride 10 ml 12/20/20 22:00 01/13/21 10:26 Sodium Chloride 0.9% 10 Ml Flush Syringe IV 10 ml BID ASCENCION Administration Sodium Chloride 10 ml 12/20/20 16:42 Sodium Chloride 0.9% 10 Ml Flush Syringe IV PRN PRN LINE FLUSH Nutrition/Malnutrition Assess - Dietary Evaluation Nutrition/Malnutrition Findings: Nutrition Notes Start: 12/21/20 09:06 Freq: Status: Active Protocol: Document 01/13/21 09:04 CW (Rec: 01/13/21 09:13 CW [id number]) Nutrition Notes Initial or Follow up Reassessment Current Diagnosis Acute Kidney Injury,Coronary Artery Disease,Sepsis, Hypertension,Small Bowel Obstruction,Hyperlipidemia Other Pertinent Diagnosis gangrenous small bowel, s/p small bowel ressection, peritonitis Current Diet TPN at 83.33ml/hr + Nepro 40ml /hr Labs/Tests K 3 BUN 69 Cr 2.9 Ca 8 (AdjCa 9.52) Pertinent Medications Propofol at 28.848 ml/hr ( provides 761.6 kcal) Reglan Height 6 ft Weight 132 kg [place] Body Weight (kg) 80.90 BMI 39.4 Weight change and time frame weight change noted. Weight Status Obese Subjective/Other Information F/U TPN need and TF. TF running at 40 ml/hr at this time. No reports of intolerance. MD Cherry verbally okayed descion to d/c TPN. Message relayecd to RN to cut rate in half then d/c TPN. No reports of TF equipment intolerance. Percent of energy/protein needs met: 100% energy 79% pro (CPN only) Burn Absent Trauma Absent Current % PO Negligible Minimum of two criteria No #2 Nutrition Diagnosis Increased nutrient needs ( specify in comment below) Diagnosis Progress(for reassessment Continues documentation) #1 Nutrition Diagnosis Inadequate oral intake Diagnosis Progress(for reassessment Continues documentation) Is patient on ventilator? Yes Is Patient Ambulatory and/or Out of Bed No REE-([facility]-confined to bed) 2611.680 Kcal/Kg value to use for calculation 13 Approximate Energy Requirements Using 1716 kcal/Kg Calculation Used for Recommendations Kcal/kg Additional Notes Pro needs >1.2g/kg adjBW: > 127g/day Fluid needs per MD. Nutrition Intervention Change Diet Order: d/c CPN Continue TF Nutrition Support: Nepro 40 ml/hr is reached. Flush 175 ml q4h or per MD. Kcal 1,728 Protein (gm) 72 Fluid (mL) 779 Goal #1 TF tolerance Goal #2 Meet at least 75% of kcal and protein needs via TF Follow-Up By: 01/16/21 Additional Comments F/U for TF tolerance - Malnutrition Assessment Minimum of two criteria: No - Attestation Statement I have reviewed and agreed w/ Malnutrition eval & tx plan: No
--- NOTE | 2021-01-13 15:38 | Progress Note ---
Assessment and Plan Impression * Nonoliguric acute kidney injury secondary to ATN --HD initiated December 30 * Incarcerated hernia with ischemic bowel. Status post bowel resection * Hypernatremia, now with hyponatremia * Fluid overload * Sepsis * Respiratory failure, intubated * Hyperkalemia * Metabolic Acidosis, Gap * Hypoalbuminemia * Anemia Recommendations * Patient is s/ HD yesterday - no acute need for HD today * Continue HD TTS - UF as tolerated * Monitor for evidence of recovery * Maintain haley cathteter for strict I/O * Transfuse for Hb < 7 * TPN per nutrition/primary * Pressors prn to maintain MAP greater than 65 * Avoid nephrotoxins * Monitor fluid status and electrolytes * Primary and consult notes reviewed Subjective Date of service: 01/13/21 Principal diagnosis: SBO and necrosis of large part of small intestine Objective - Vital Signs Vital signs: Vital Signs - 12hr 01/13/21 01/13/21 01/13/21 04:00 04:30 05:00 Temperature Pulse Rate 98 H 93 H 90 Pulse Rate [ 96 H From Monitor] Respiratory 24 28 H 28 H Rate Blood Pressure 178/106 155/83 147/82 O2 Sat by Pulse 99 98 98 Oximetry 01/13/21 01/13/21 01/13/21 05:31 06:01 06:30 Temperature Pulse Rate 103 H 93 H 96 H Pulse Rate [ From Monitor] Respiratory 27 H 17 19 Rate Blood Pressure 168/103 164/91 190/104 O2 Sat by Pulse 97 98 98 Oximetry 01/13/21 01/13/21 01/13/21 07:00 07:04 07:31 Temperature Pulse Rate 94 H 94 H 102 H Pulse Rate [ From Monitor] Respiratory 22 26 H Rate Blood Pressure 210/104 210/104 180/94 O2 Sat by Pulse 98 97 Oximetry 01/13/21 01/13/21 01/13/21 07:41 08:00 08:30 Temperature Pulse Rate 98 H 98 H 92 H Pulse Rate [ 98 H From Monitor] Respiratory 30 H 16 Rate Blood Pressure 166/97 165/87 163/86 O2 Sat by Pulse 98 98 98 Oximetry 01/13/21 01/13/21 01/13/21 09:00 09:30 10:00 Temperature Pulse Rate 96 H 91 H 99 H Pulse Rate [ From Monitor] Respiratory 28 H 26 H 31 H Rate Blood Pressure 185/98 165/89 173/83 O2 Sat by Pulse 98 98 99 Oximetry 01/13/21 01/13/21 01/13/21 10:30 11:00 11:26 Temperature Pulse Rate 91 H Pulse Rate [ From Monitor] Respiratory Rate Blood Pressure 177/94 194/96 194/96 O2 Sat by Pulse 98 97 98 Oximetry 01/13/21 01/13/21 01/13/21 11:30 12:00 12:31 Temperature 99.2 F Pulse Rate 100 H 92 H Pulse Rate [ 100 H From Monitor] Respiratory 30 H 27 H Rate Blood Pressure 174/91 213/105 194/92 O2 Sat by Pulse 98 98 95 Oximetry 01/13/21 01/13/21 01/13/21 12:48 13:00 13:30 Temperature Pulse Rate 93 H 101 H Pulse Rate [ From Monitor] Respiratory 29 H 15 Rate Blood Pressure 192/93 175/83 182/100 O2 Sat by Pulse 96 99 Oximetry 01/13/21 01/13/21 14:00 15:03 Temperature Pulse Rate 90 92 H Pulse Rate [ From Monitor] Respiratory 26 H Rate Blood Pressure 184/89 200/92 O2 Sat by Pulse 99 98 Oximetry - General Appearance General appearance: well-developed, well-nourished EENT: ATNC Respiratory: Present: Clear to Ascultation Cardiology: regular, S1S2 Gastrointestinal: normal, distended Integumentary: no rash, warm and dry Musculoskeletal: other (2+ edema) Psychiatric: cooperative - Lab 01/13/21 05:00 01/13/21 05:00 Most recent lab results ABG pH 7.484 (7.320-7.450) H 01/13/21 03:14 ABG pCO2 37.9 mm Hg 01/05/21 03:50 ABG pO2 136.8 mm Hg (80.0-90.0) H 01/05/21 03:50 ABG HCO3 22.4 mmol/L (20.0-26.0) 01/05/21 03:50 ABG O2 Saturation 98.3 (0-100) 01/13/21 03:14 Calcium 8.0 mg/dL (8.4-10.2) L 01/13/21 05:00 Phosphorus 4.90 mg/dL (2.5-4.5) H 01/12/21 10:00 Magnesium 1.80 mg/dL (1.7-2.3) 01/12/21 10:00 Urine Creatinine 78.1 mg/dL (0.1-20.0) H 12/23/20 12:15 Urine Sodium 13 mmol/L 12/23/20 12:15 Medications & Allergies - Medications Allergies/Adverse Reactions: Allergies Iodinated Contrast Media Adverse Reaction (Verified 09/04/18 14:20) Unknown Home Medications: Home Medications Medication Instructions Recorded Confirmed Last Taken Type Aspirin 81 mg PO DAILY #30 tab.chew 09/08/18 01/04/21 03/31/20 09:28 Rx AtorvaSTATin [Lipitor] 80 mg PO QHS tablet 05/08/19 01/04/21 03/28/20 Rx Albuterol Sulfate [Proventil Hfa] 13.4 gm IH Q6H #1 hfa.aer.ad 04/01/20 01/04/21 Unknown Rx Clopidogrel [Plavix] 75 mg PO DAILY #30 tablet 04/01/20 01/04/21 Unknown Rx Gabapentin 300 mg PO BID@0700,1800 30 Days 04/01/20 01/04/21 Unknown Rx capsule Gabapentin 600 mg PO QHS 30 Days capsule 04/01/20 01/04/21 Unknown Rx Metoprolol [Lopressor TAB] 25 mg PO BID #60 tablet 04/01/20 01/04/21 Unknown Rx [place]-3/Dha/Epa/Fish Oil [[place] 3 1 each PO BID #60 capsule 04/01/20 01/04/21 Unknown Rx 500 Softgel] Tiotropium [place] [Spiriva] 2 puff IH DAILY #30 cap.w.dev 04/01/20 01/04/21 Unknown Rx Ubidecarenone [Co Q-10] 10 mg PO BID #60 tab 04/01/20 01/04/21 03/29/20 Rx cilostazoL [Pletal] 50 mg PO BID 30 Days tablet 04/01/20 01/04/21 Unknown Rx oxyCODONE /ACETAMINOPHEN [Percocet 2 tab PO Q6H PRN tablet 04/01/20 01/04/21 Unknown Rx 5/325 mg] Phosphorus #1 [K-Phos Neutral] 250 mg PO QID 2 Days #8 tablet 09/14/20 01/04/21 Unknown Rx Active Medications: Generic Name Dose Route Start Last Admin Trade Name Freq PRN Reason Stop Dose Admin Acetaminophen 650 mg 12/21/20 11:51 12/25/20 20:35 Acetaminophen 650 Mg Rect Supp [place] 650 mg Q4H PRN Administration TEMP >/=100.4 Lipase/Protease/Amylase 1 each 01/07/21 08:44 Lipase 10,500/Protease 25,000/Amylase 43,750 (Units) Dr Maharaj FEEDTUBE PRN PRN For Clogged Feeding Tube Bisacodyl 10 mg 12/30/20 11:00 01/13/21 10:25 Bisacodyl 10 Mg Rect Supp [place] 10 mg QDAY ASCENCION Administration Dextrose 50 ml 12/24/20 10:49 Dextrose 50% In Water (25gm) 50 Ml Syringe IV Q30MIN PRN Hypoglycemia Protocol Famotidine 20 mg 12/26/20 10:00 01/13/21 10:25 Famotidine 20 Mg/2 Ml Inj IV 20 mg DAILY ASCENCION Administration Fentanyl 1 applic 01/11/21 14:00 01/11/21 14:05 Fentanyl 50 Mcg/Hr Patch 72hr TD 1 applic Q3D ASCENCION Administration Heparin Sodium (Porcine) 5,000 unit 01/06/21 14:00 01/13/21 14:00 Heparin 5,000 Unit/1 Ml Vial SUB-Q 5,000 unit Q8HR ASCENCION Administration Hydralazine HCl 10 mg 01/09/21 16:13 01/13/21 12:48 Hydralazine 20 Mg/1 Ml Inj IV 10 mg Q4H PRN Administration Hypertension Hydromorphone HCl 1 mg 01/11/21 14:00 01/13/21 14:00 Hydromorphone 1 Mg/1 Ml Inj IV 1 mg Q4HR ASCENCION Administration Hydromorphone HCl 0.5 mg 01/12/21 10:10 01/13/21 09:08 Hydromorphone 1 Mg/1 Ml Inj IV 0.5 mg Q4H PRN Administration Pain , Severe (7-10) Hydromorphone HCl 0.25 mg 01/12/21 10:11 Hydromorphone 1 Mg/1 Ml Inj IV Q4H PRN Pain, Moderate (4-6) Hydrophilic Ointment 1 applic 12/20/20 21:58 Lip Therapy Vaseline TP Q2HR PRN Dry Lips Propofol 1,000 mg in 100 mls @ 3.606 mls/hr 12/20/20 22:00 01/13/21 12:48 Diprivan 10 Mg/Ml IV 40 mcg/kg/min TITR ASCENCION 28.848 mls/hr Administration Protocol 5 MCG/KG/MIN Dexmedetomidine HCl 400 mcg/ 104 mls @ 7.322 mls/hr 01/04/21 11:00 01/13/21 13:35 Sodium Chloride IV 1 mcg/kg/hr TITRATE ASCENCION 36.608 mls/hr Administration Protocol 0.2 MCG/KG/HR Sodium Chloride 100 mls @ 999 mls/hr 01/10/21 09:08 Nacl 0.9% IV MARILU PRN Hypotension Nicardipine HCl 50 mg/ Sodium 250 mls @ 25 mls/hr 01/11/21 09:00 Chloride IV TITR ASCENCION Protocol 5 MG/HR Amino Acids/Electrolytes/Dextrose 1,999.92 mls @ 83.33 mls/hr 01/12/21 20:00 01/13/21 12:09 Tpn Adult IV 01/13/21 19:59 41 mls/hr DAILY@1999 [facility] Infusion Protocol Insulin Human Regular 0 units 12/28/20 00:00 01/13/21 12:00 Insulin Regular, Human 100 Units/1 Ml SUB-Q Not Given Q6H [facility] Protocol Metoclopramide HCl 5 mg 01/09/21 18:00 01/13/21 12:48 Metoclopramide 10 Mg/2 Ml Inj IV 5 mg Q6HR ASCENCION Administration Multi-Ingred Cream/Lotion/Oil/Oint 1 applic 12/20/20 21:58 01/03/21 01:13 Mineral Oil/Petrolatum, White Ophth Oint 3.5 Gm OU 1 applic Q4HR PRN Administration Dry Eye(s) Ondansetron HCl 4 mg 01/11/21 08:09 Ondansetron 4 Mg/2 Ml Inj IV Q8H PRN Nausea And Vomiting Simple Syrup 15 ml 01/07/21 08:44 Simple Syrup 15 Ml FEEDTUBE PRN PRN Hypoglycemia Simple Syrup 30 ml 01/07/21 08:44 Simple Syrup 15 Ml FEEDTUBE PRN PRN Hypoglycemia Sodium Bicarbonate 325 mg 01/07/21 08:44 Sodium Bicarbonate 325 Mg Tab FEEDTUBE PRN PRN For Clogged Feeding Tube Sodium Chloride 10 ml 12/20/20 22:00 01/13/21 10:26 Sodium Chloride 0.9% 10 Ml Flush Syringe IV 10 ml BID ASCENCION Administration Sodium Chloride 10 ml 12/20/20 16:42 Sodium Chloride 0.9% 10 Ml Flush Syringe IV PRN PRN LINE FLUSH
[2021-01-14] MEDS: HYDROmorphone 1 MG/1 ML INJ IV SCH ×6 (02:49→23:18)
[2021-01-14] MEDS: hydrALAZINE 20 MG/1 ML INJ IV PRN (05:42)
[2021-01-14] MEDS: METOCLOPRAMIDE 10 MG/2 ML INJ IV SCH ×4 (05:46→17:57)
[2021-01-14] MEDS: HEPARIN 5,000 UNIT/1 ML VIAL SUB-Q SCH ×3 (05:47→23:18)
[2021-01-14 06:08] LABS: Basophils # (Auto) 0.1 K/mm3 (0.0-0.1); Basophils % (Auto) 0.6 % (0.0-1.8); Eosinophils % (Auto) 7.7 % (0.0-4.3); Hematocrit 23.3 % (35.5-45.6); Hemoglobin 7.7 gm/dl (11.8-15.2); Lymphocytes # (Auto) 0.8 K/mm3 (1.2-5.4); Lymphocytes % (Auto) 6.5 % (13.4-35.0); Mean Corpuscular HGB Conc 33 % (32-34); Mean Corpuscular Volume 86 fl (84-94); Monocytes # (Auto) 0.3 K/mm3 (0.0-0.8); Monocytes % (Auto) 2.5 % (0.0-7.3); Platelet Count 274 K/mm3 (140-440); Red Blood Count 2.72 M/mm3 (3.65-5.03); Red Cell Distribution Width 17.3 % (13.2-15.2)
[2021-01-14 06:51] LABS: Calcium 8.5 mg/dL (8.4-10.2)
--- NOTE | 2021-01-14 09:29 | Progress Note ---
Assessment and Plan - Patient Problems (1) Acute respiratory failure Current Visit: Yes Status: Acute (2) Chronic pain disorder Current Visit: Yes Status: Acute (3) Lactic acidosis Current Visit: Yes Status: Acute (4) Obesity (BMI 30-39.9) Current Visit: Yes Status: Acute (5) Peritonitis (acute) generalized Current Visit: Yes Status: Acute (6) Small bowel obstruction Current Visit: Yes Status: Acute Subjective Principal diagnosis: SBO and necrosis of large part of small intestine Interval history: sedated on vent ac 30% peep 6 on diprivan and precedex Objective Vital Signs - 12hr 01/13/21 01/13/21 01/13/21 21:30 22:00 22:30 Temperature Pulse Rate 82 85 82 Pulse Rate [ From Monitor] Respiratory 24 24 24 Rate Blood Pressure 151/80 163/85 145/80 O2 Sat by Pulse 95 97 97 Oximetry 01/13/21 01/13/21 01/14/21 23:00 23:30 00:00 Temperature 99.7 F H Pulse Rate 84 81 93 H Pulse Rate [ 93 H From Monitor] Respiratory 24 24 29 H Rate Blood Pressure 139/82 127/71 O2 Sat by Pulse 97 95 98 Oximetry 01/14/21 01/14/21 01/14/21 00:01 00:05 00:30 Temperature Pulse Rate 95 H 85 83 Pulse Rate [ From Monitor] Respiratory 18 24 Rate Blood Pressure 165/90 139/82 135/79 O2 Sat by Pulse 94 93 95 Oximetry 01/14/21 01/14/21 01/14/21 01:00 01:30 02:00 Temperature Pulse Rate 83 81 80 Pulse Rate [ From Monitor] Respiratory 27 H 24 24 Rate Blood Pressure 139/80 126/77 122/74 O2 Sat by Pulse 95 93 95 Oximetry 01/14/21 01/14/21 01/14/21 02:30 03:00 03:31 Temperature Pulse Rate 78 78 80 Pulse Rate [ From Monitor] Respiratory 24 25 H 25 H Rate Blood Pressure 130/74 135/76 168/89 O2 Sat by Pulse 95 95 96 Oximetry 01/14/21 01/14/21 01/14/21 04:00 04:30 05:00 Temperature 100.0 F H Pulse Rate 84 82 79 Pulse Rate [ 84 From Monitor] Respiratory 27 H 22 25 H Rate Blood Pressure 169/86 186/89 163/84 O2 Sat by Pulse 94 96 94 Oximetry 01/14/21 01/14/21 01/14/21 05:30 05:42 06:00 Temperature Pulse Rate 100 H 100 H 104 H Pulse Rate [ From Monitor] Respiratory 25 H 32 H Rate Blood Pressure 198/105 198/105 170/100 O2 Sat by Pulse 98 96 Oximetry 01/14/21 01/14/21 01/14/21 06:31 07:00 07:01 Temperature 99.8 F H Pulse Rate 117 H 112 H Pulse Rate [ From Monitor] Respiratory 46 H 27 H Rate Blood Pressure 221/125 158/94 O2 Sat by Pulse 93 94 Oximetry 01/14/21 01/14/21 01/14/21 07:20 07:30 08:00 Temperature Pulse Rate 96 H 94 H 94 H Pulse Rate [ 84 From Monitor] Respiratory 28 H 27 H Rate Blood Pressure 123/63 128/70 130/67 O2 Sat by Pulse 94 89 93 Oximetry 01/14/21 01/14/21 08:30 09:00 Temperature Pulse Rate 93 H 87 Pulse Rate [ From Monitor] Respiratory 25 H 26 H Rate Blood Pressure 138/72 121/64 O2 Sat by Pulse 94 94 Oximetry Constitutional: comatose (secondary to sedation.), other (critically ill on ventilator sedsted obese) Eyes: non-icteric ENT: oropharynx moist, other (ett in place ngt inplace) Neck: supple Effort: normal Ascultation: Bilateral: other (coarse BS bilaterally) Cardiovascular: other (tachy, RR; no mrg) Gastrointestinal: other (abdomen open) Integumentary: normal Extremities: no cyanosis, no edema, pink and warm Neurologic: other (sedated) CBC and BMP: 01/14/21 05:00 01/14/21 05:00 ABG, PT/INR, D-dimer: ABG ABG pH 7.484 (7.320-7.450) H 01/13/21 03:14 POC ABG pCO2 34.8 mmHg (32.0-48.0) 01/13/21 03:14 ABG pCO2 37.9 mm Hg 01/05/21 03:50 POC ABG pO2 104.0 mmHg (83-108) 01/13/21 03:14 ABG pO2 136.8 mm Hg (80.0-90.0) H 01/05/21 03:50 POC ABG HCO3 25.6 01/13/21 03:14 ABG O2 Saturation 98.3 (0-100) 01/13/21 03:14 PT/INR, D-dimer PT 15.4 Sec. (12.2-14.9) H 01/10/21 04:01 INR 1.17 (0.87-1.13) H 01/10/21 04:01 Abnormal lab findings: Abnormal Labs 12/20/20 12/20/20 12/20/20 13:58 13:58 13:58 WBC 41.1 H* RBC 5.59 H Hgb 16.2 H Hct 47.7 H MCV MCHC RDW 15.5 H Plt Count 486 H Lymph % (Auto) Eos % (Auto) Lymph # (Auto) Eos # (Auto) Seg Neutrophils % Seg Neuts % (Manual) Lymphocytes % (Manual) Seg Neutrophils # Seg Neutrophils # Man Lymphocytes # (Manual) Monocytes # (Manual) PT INR APTT Fibrinogen ABG pH POC ABG pCO2 POC ABG pO2 ABG pO2 ABG Base Excess ABG Hemoglobin ABG Oxyhemoglobin ABG Sodium ABG Potassium ABG Chloride ABG Glucose Carboxyhemoglobin Sodium 130 L Potassium Chloride 80.7 L Carbon Dioxide BUN 37 H Creatinine Glucose 101 H POC Glucose Lactic Acid 3.20 H* Calcium Ionized Calcium Phosphorus Magnesium AST Alkaline Phosphatase 142 H Total Protein 6.2 L Albumin 2.2 L Triglycerides Arterial Blood Glucose Arterial Blood Ionized Calcium Urine Creatinine Crossmatch 12/20/20 12/20/20 12/20/20 13:58 20:35 21:30 WBC RBC Hgb Hct MCV MCHC RDW Plt Count Lymph % (Auto) Eos % (Auto) Lymph # (Auto) Eos # (Auto) Seg Neutrophils % Seg Neuts % (Manual) Lymphocytes % (Manual) Seg Neutrophils # Seg Neutrophils # Man Lymphocytes # (Manual) Monocytes # (Manual) PT INR APTT 49.4 H Fibrinogen ABG pH 7.313 L POC ABG pCO2 POC ABG pO2 ABG pO2 104.4 H ABG Base Excess ABG Hemoglobin ABG Oxyhemoglobin ABG Sodium ABG Potassium ABG Chloride ABG Glucose Carboxyhemoglobin Sodium Potassium Chloride Carbon Dioxide BUN Creatinine Glucose POC Glucose 122 H Lactic Acid Calcium Ionized Calcium Phosphorus Magnesium AST Alkaline Phosphatase Total Protein Albumin Triglycerides Arterial Blood Glucose Arterial Blood Ionized Calcium Urine Creatinine Crossmatch 06/02/21 06/02/21 06/02/21 03:06 08:14 08:14 WBC 23.9 H RBC Hgb Hct MCV MCHC RDW 15.7 H Plt Count Lymph % (Auto) Eos % (Auto) Lymph # (Auto) Eos # (Auto) Seg Neutrophils % Seg Neuts % (Manual) 91.0 H Lymphocytes % (Manual) 3.0 L Seg Neutrophils # Seg Neutrophils # Man 21.7 H Lymphocytes # (Manual) 0.7 L Monocytes # (Manual) 1.4 H PT INR APTT Fibrinogen ABG pH 7.464 H POC ABG pCO2 POC ABG pO2 202.9 H ABG pO2 ABG Base Excess ABG Hemoglobin ABG Oxyhemoglobin ABG Sodium 133.7 L ABG Potassium ABG Chloride ABG Glucose 122 H Carboxyhemoglobin Sodium Potassium Chloride Carbon Dioxide BUN 46 H Creatinine Glucose 103 H POC Glucose Lactic Acid Calcium 6.6 L D Ionized Calcium Phosphorus Magnesium AST Alkaline Phosphatase Total Protein 5.4 L Albumin 2.3 L Triglycerides Arterial Blood Glucose 122 H Arterial Blood Ionized Calcium 3.5 L Urine Creatinine Crossmatch 12/21/20 12/21/20 12/22/20 17:18 21:28 04:45 WBC 22.9 H RBC Hgb Hct MCV MCHC RDW 15.7 H Plt Count Lymph % (Auto) Eos % (Auto) Lymph # (Auto) Eos # (Auto) Seg Neutrophils % Seg Neuts % (Manual) Lymphocytes % (Manual) Seg Neutrophils # Seg Neutrophils # Man Lymphocytes # (Manual) Monocytes # (Manual) PT INR APTT Fibrinogen ABG pH POC ABG pCO2 POC ABG pO2 ABG pO2 ABG Base Excess ABG Hemoglobin ABG Oxyhemoglobin ABG Sodium ABG Potassium ABG Chloride ABG Glucose Carboxyhemoglobin Sodium Potassium Chloride Carbon Dioxide BUN Creatinine Glucose POC Glucose 108 H Lactic Acid Calcium Ionized Calcium 4.1 L Phosphorus Magnesium AST Alkaline Phosphatase Total Protein Albumin Triglycerides Arterial Blood Glucose Arterial Blood Ionized Calcium Urine Creatinine Crossmatch 12/22/20 12/22/20 12/22/20 04:45 05:00 11:38 WBC RBC Hgb Hct MCV MCHC RDW Plt Count Lymph % (Auto) Eos % (Auto) Lymph # (Auto) Eos # (Auto) Seg Neutrophils % Seg Neuts % (Manual) Lymphocytes % (Manual) Seg Neutrophils # Seg Neutrophils # Man Lymphocytes # (Manual) Monocytes # (Manual) PT INR APTT Fibrinogen ABG pH 7.462 H POC ABG pCO2 POC ABG pO2 ABG pO2 ABG Base Excess ABG Hemoglobin ABG Oxyhemoglobin ABG Sodium ABG Potassium ABG Chloride ABG Glucose 118 H Carboxyhemoglobin Sodium 146 H Potassium Chloride Carbon Dioxide BUN 45 H Creatinine Glucose 116 H POC Glucose 115 H Lactic Acid Calcium 6.9 L Ionized Calcium Phosphorus Magnesium AST Alkaline Phosphatase Total Protein Albumin Triglycerides Arterial Blood Glucose 118 H Arterial Blood Ionized Calcium 3.8 L Urine Creatinine Crossmatch 12/22/20 12/23/20 12/23/20 23:26 04:43 04:45 WBC 22.2 H RBC Hgb Hct MCV MCHC RDW 16.1 H Plt Count Lymph % (Auto) Eos % (Auto) Lymph # (Auto) Eos # (Auto) Seg Neutrophils % Seg Neuts % (Manual) Lymphocytes % (Manual) Seg Neutrophils # Seg Neutrophils # Man Lymphocytes # (Manual) Monocytes # (Manual) PT INR APTT Fibrinogen ABG pH POC ABG pCO2 POC ABG pO2 ABG pO2 ABG Base Excess ABG Hemoglobin ABG Oxyhemoglobin ABG Sodium 147.4 H ABG Potassium ABG Chloride 112.0 H ABG Glucose 130 H Carboxyhemoglobin 0.4 L Sodium Potassium Chloride Carbon Dioxide BUN Creatinine Glucose POC Glucose 110 H Lactic Acid Calcium Ionized Calcium Phosphorus Magnesium AST Alkaline Phosphatase Total Protein Albumin Triglycerides Arterial Blood Glucose 130 H Arterial Blood Ionized Calcium 3.8 L Urine Creatinine Crossmatch 12/23/20 12/23/20 12/23/20 04:45 05:17 11:22 WBC RBC Hgb Hct MCV MCHC RDW Plt Count Lymph % (Auto) Eos % (Auto) Lymph # (Auto) Eos # (Auto) Seg Neutrophils % Seg Neuts % (Manual) Lymphocytes % (Manual) Seg Neutrophils # Seg Neutrophils # Man Lymphocytes # (Manual) Monocytes # (Manual) PT INR APTT Fibrinogen ABG pH POC ABG pCO2 POC ABG pO2 ABG pO2 ABG Base Excess ABG Hemoglobin ABG Oxyhemoglobin ABG Sodium ABG Potassium ABG Chloride ABG Glucose Carboxyhemoglobin Sodium 154 H D Potassium Chloride 110.9 H Carbon Dioxide BUN 54 H Creatinine 1.8 H Glucose 115 H POC Glucose 116 H 130 H Lactic Acid Calcium 7.0 L Ionized Calcium Phosphorus Magnesium AST Alkaline Phosphatase Total Protein Albumin Triglycerides Arterial Blood Glucose Arterial Blood Ionized Calcium Urine Creatinine Crossmatch 12/23/20 12/23/20 12/23/20 12:15 12:15 23:15 WBC RBC Hgb Hct MCV MCHC RDW Plt Count Lymph % (Auto) Eos % (Auto) Lymph # (Auto) Eos # (Auto) Seg Neutrophils % Seg Neuts % (Manual) Lymphocytes % (Manual) Seg Neutrophils # Seg Neutrophils # Man Lymphocytes # (Manual) Monocytes # (Manual) PT INR APTT Fibrinogen ABG pH POC ABG pCO2 POC ABG pO2 ABG pO2 ABG Base Excess ABG Hemoglobin ABG Oxyhemoglobin ABG Sodium ABG Potassium ABG Chloride ABG Glucose Carboxyhemoglobin Sodium 154 H Potassium Chloride Carbon Dioxide BUN Creatinine 1.5 H Glucose POC Glucose 132 H Lactic Acid Calcium Ionized Calcium Phosphorus Magnesium AST Alkaline Phosphatase Total Protein Albumin Triglycerides Arterial Blood Glucose Arterial Blood Ionized Calcium Urine Creatinine 78.1 H Crossmatch 12/24/20 12/24/20 12/24/20 04:19 04:30 04:30 WBC 18.3 H RBC Hgb Hct MCV MCHC RDW 16.5 H Plt Count Lymph % (Auto) Eos % (Auto) Lymph # (Auto) Eos # (Auto) Seg Neutrophils % Seg Neuts % (Manual) Lymphocytes % (Manual) Seg Neutrophils # Seg Neutrophils # Man Lymphocytes # (Manual) Monocytes # (Manual) PT INR APTT Fibrinogen ABG pH POC ABG pCO2 POC ABG pO2 ABG pO2 ABG Base Excess ABG Hemoglobin ABG Oxyhemoglobin ABG Sodium 149.7 H ABG Potassium ABG Chloride 116.0 H ABG Glucose 180 H Carboxyhemoglobin Sodium 155 H Potassium Chloride 116.1 H Carbon Dioxide BUN 52 H Creatinine 1.5 H Glucose 175 H POC Glucose Lactic Acid Calcium 6.8 L Ionized Calcium Phosphorus Magnesium 3.00 H AST Alkaline Phosphatase Total Protein 5.7 L Albumin 1.8 L Triglycerides Arterial Blood Glucose 180 H Arterial Blood Ionized Calcium 3.7 L Urine Creatinine Crossmatch 12/24/20 12/24/20 12/24/20 05:24 11:21 18:05 WBC RBC Hgb Hct MCV MCHC RDW Plt Count Lymph % (Auto) Eos % (Auto) Lymph # (Auto) Eos # (Auto) Seg Neutrophils % Seg Neuts % (Manual) Lymphocytes % (Manual) Seg Neutrophils # Seg Neutrophils # Man Lymphocytes # (Manual) Monocytes # (Manual) PT INR APTT Fibrinogen ABG pH POC ABG pCO2 POC ABG pO2 ABG pO2 ABG Base Excess ABG Hemoglobin ABG Oxyhemoglobin ABG Sodium ABG Potassium ABG Chloride ABG Glucose Carboxyhemoglobin Sodium Potassium Chloride Carbon Dioxide BUN Creatinine Glucose POC Glucose 153 H 154 H 133 H Lactic Acid Calcium Ionized Calcium Phosphorus Magnesium AST Alkaline Phosphatase Total Protein Albumin Triglycerides Arterial Blood Glucose Arterial Blood Ionized Calcium Urine Creatinine Crossmatch 12/25/20 12/25/20 12/25/20 04:00 07:00 07:00 WBC 17.6 H RBC Hgb Hct MCV MCHC 31 L RDW 16.0 H Plt Count Lymph % (Auto) Eos % (Auto) Lymph # (Auto) Eos # (Auto) Seg Neutrophils % Seg Neuts % (Manual) Lymphocytes % (Manual) Seg Neutrophils # Seg Neutrophils # Man Lymphocytes # (Manual) Monocytes # (Manual) PT INR APTT Fibrinogen ABG pH POC ABG pCO2 POC ABG pO2 ABG pO2 ABG Base Excess ABG Hemoglobin ABG Oxyhemoglobin ABG Sodium 152.5 H ABG Potassium ABG Chloride 119.0 H ABG Glucose 136 H Carboxyhemoglobin Sodium Potassium Chloride Carbon Dioxide BUN Creatinine Glucose POC Glucose Lactic Acid Calcium Ionized Calcium Phosphorus Magnesium 2.70 H AST Alkaline Phosphatase Total Protein Albumin Triglycerides Arterial Blood Glucose 136 H Arterial Blood Ionized Calcium 3.7 L Urine Creatinine Crossmatch 12/25/20 12/25/20 12/25/20 07:00 11:24 16:32 WBC RBC Hgb Hct MCV MCHC RDW Plt Count Lymph % (Auto) Eos % (Auto) Lymph # (Auto) Eos # (Auto) Seg Neutrophils % Seg Neuts % (Manual) Lymphocytes % (Manual) Seg Neutrophils # Seg Neutrophils # Man Lymphocytes # (Manual) Monocytes # (Manual) PT INR APTT Fibrinogen ABG pH POC ABG pCO2 POC ABG pO2 ABG pO2 ABG Base Excess ABG Hemoglobin ABG Oxyhemoglobin ABG Sodium ABG Potassium ABG Chloride ABG Glucose Carboxyhemoglobin Sodium 156 H Potassium Chloride 118.0 H Carbon Dioxide BUN 44 H Creatinine 1.7 H Glucose 126 H POC Glucose 110 H 126 H Lactic Acid Calcium 6.9 L Ionized Calcium Phosphorus Magnesium AST Alkaline Phosphatase Total Protein Albumin Triglycerides Arterial Blood Glucose Arterial Blood Ionized Calcium Urine Creatinine Crossmatch 12/25/20 12/25/20 12/26/20 18:18 23:23 03:30 WBC RBC Hgb Hct MCV MCHC RDW Plt Count Lymph % (Auto) Eos % (Auto) Lymph # (Auto) Eos # (Auto) Seg Neutrophils % Seg Neuts % (Manual) Lymphocytes % (Manual) Seg Neutrophils # Seg Neutrophils # Man Lymphocytes # (Manual) Monocytes # (Manual) PT INR APTT Fibrinogen ABG pH POC ABG pCO2 POC ABG pO2 ABG pO2 ABG Base Excess ABG Hemoglobin 11.8 L ABG Oxyhemoglobin ABG Sodium ABG Potassium 4.7 H ABG Chloride 114.0 H ABG Glucose 132 H Carboxyhemoglobin Sodium 151 H Potassium Chloride 114.3 H Carbon Dioxide BUN 51 H Creatinine 2.6 H D Glucose 122 H POC Glucose 115 H Lactic Acid Calcium 6.4 L Ionized Calcium Phosphorus Magnesium AST Alkaline Phosphatase Total Protein Albumin Triglycerides Arterial Blood Glucose 132 H Arterial Blood Ionized Calcium 3.6 L Urine Creatinine Crossmatch 12/26/20 12/26/20 12/26/20 04:55 06:01 06:01 WBC 21.6 H RBC Hgb Hct MCV MCHC 31 L RDW 16.5 H Plt Count 136 L Lymph % (Auto) Eos % (Auto) Lymph # (Auto) Eos # (Auto) Seg Neutrophils % Seg Neuts % (Manual) Lymphocytes % (Manual) Seg Neutrophils # Seg Neutrophils # Man Lymphocytes # (Manual) Monocytes # (Manual) PT INR APTT Fibrinogen ABG pH POC ABG pCO2 POC ABG pO2 ABG pO2 ABG Base Excess ABG Hemoglobin ABG Oxyhemoglobin ABG Sodium ABG Potassium ABG Chloride ABG Glucose Carboxyhemoglobin Sodium 173 H* D Potassium 6.1 H* D Chloride 137.0 H Carbon Dioxide BUN 73 H Creatinine 3.8 H Glucose 125 H POC Glucose 112 H Lactic Acid Calcium 6.2 L Ionized Calcium Phosphorus 5.70 H D Magnesium 2.90 H AST Alkaline Phosphatase Total Protein Albumin Triglycerides Arterial Blood Glucose Arterial Blood Ionized Calcium Urine Creatinine Crossmatch 12/26/20 12/26/20 12/26/20 08:33 11:19 22:00 WBC RBC Hgb Hct MCV MCHC RDW Plt Count Lymph % (Auto) Eos % (Auto) Lymph # (Auto) Eos # (Auto) Seg Neutrophils % Seg Neuts % (Manual) Lymphocytes % (Manual) Seg Neutrophils # Seg Neutrophils # Man Lymphocytes # (Manual) Monocytes # (Manual) PT INR APTT Fibrinogen ABG pH POC ABG pCO2 POC ABG pO2 ABG pO2 ABG Base Excess ABG Hemoglobin ABG Oxyhemoglobin ABG Sodium ABG Potassium ABG Chloride ABG Glucose Carboxyhemoglobin Sodium 147 H D Potassium 5.8 H D Chloride 108.8 H Carbon Dioxide 21 L BUN 68 H 68 H Creatinine 3.8 H 4.1 H Glucose 144 H 154 H POC Glucose 144 H Lactic Acid Calcium 6.5 L 5.8 L* Ionized Calcium Phosphorus Magnesium AST 215 H Alkaline Phosphatase Total Protein 4.7 L Albumin 1.5 L Triglycerides Arterial Blood Glucose Arterial Blood Ionized Calcium Urine Creatinine Crossmatch 12/26/20 12/26/20 12/27/20 23:13 Unknown 00:25 WBC RBC Hgb 11.1 L Hct MCV MCHC RDW Plt Count Lymph % (Auto) Eos % (Auto) Lymph # (Auto) Eos # (Auto) Seg Neutrophils % Seg Neuts % (Manual) Lymphocytes % (Manual) Seg Neutrophils # Seg Neutrophils # Man Lymphocytes # (Manual) Monocytes # (Manual) PT INR APTT Fibrinogen ABG pH POC ABG pCO2 POC ABG pO2 ABG pO2 ABG Base Excess ABG Hemoglobin ABG Oxyhemoglobin ABG Sodium ABG Potassium ABG Chloride ABG Glucose Carboxyhemoglobin Sodium Potassium Chloride Carbon Dioxide BUN Creatinine Glucose POC Glucose 163 H Lactic Acid Calcium Ionized Calcium Phosphorus 5.60 H Magnesium AST Alkaline Phosphatase Total Protein Albumin Triglycerides Arterial Blood Glucose Arterial Blood Ionized Calcium Urine Creatinine Crossmatch 12/27/20 12/27/20 12/27/20 02:57 04:15 04:15 WBC 28.5 H RBC Hgb 11.2 L Hct MCV MCHC 31 L RDW 16.5 H Plt Count 130 L Lymph % (Auto) Eos % (Auto) Lymph # (Auto) Eos # (Auto) Seg Neutrophils % Seg Neuts % (Manual) Lymphocytes % (Manual) Seg Neutrophils # Seg Neutrophils # Man Lymphocytes # (Manual) Monocytes # (Manual) PT INR APTT Fibrinogen ABG pH 7.238 L POC ABG pCO2 POC ABG pO2 139.1 H ABG pO2 ABG Base Excess ABG Hemoglobin 11.2 L ABG Oxyhemoglobin ABG Sodium 133.8 L ABG Potassium 5.2 H ABG Chloride ABG Glucose 182 H Carboxyhemoglobin Sodium 136 L Potassium 6.0 H Chloride Carbon Dioxide 18 L BUN 68 H Creatinine 4.1 H Glucose 166 H POC Glucose Lactic Acid Calcium 6.2 L Ionized Calcium Phosphorus 7.30 H D Magnesium AST Alkaline Phosphatase Total Protein Albumin Triglycerides 164 H Arterial Blood Glucose 182 H Arterial Blood Ionized Calcium 3.4 L Urine Creatinine Crossmatch 12/27/20 12/27/20 12/27/20 04:50 10:51 11:17 WBC RBC Hgb Hct MCV MCHC RDW Plt Count Lymph % (Auto) Eos % (Auto) Lymph # (Auto) Eos # (Auto) Seg Neutrophils % Seg Neuts % (Manual) Lymphocytes % (Manual) Seg Neutrophils # Seg Neutrophils # Man Lymphocytes # (Manual) Monocytes # (Manual) PT INR APTT Fibrinogen ABG pH POC ABG pCO2 POC ABG pO2 ABG pO2 ABG Base Excess ABG Hemoglobin ABG Oxyhemoglobin ABG Sodium ABG Potassium ABG Chloride ABG Glucose Carboxyhemoglobin Sodium Potassium Chloride Carbon Dioxide BUN Creatinine Glucose POC Glucose 140 H 113 H 154 H Lactic Acid Calcium Ionized Calcium Phosphorus Magnesium AST Alkaline Phosphatase Total Protein Albumin Triglycerides Arterial Blood Glucose Arterial Blood Ionized Calcium Urine Creatinine Crossmatch 12/27/20 12/27/20 12/27/20 12:40 14:40 23:17 WBC RBC Hgb Hct MCV MCHC RDW Plt Count Lymph % (Auto) Eos % (Auto) Lymph # (Auto) Eos # (Auto) Seg Neutrophils % Seg Neuts % (Manual) Lymphocytes % (Manual) Seg Neutrophils # Seg Neutrophils # Man Lymphocytes # (Manual) Monocytes # (Manual) PT INR APTT Fibrinogen ABG pH POC ABG pCO2 POC ABG pO2 ABG pO2 ABG Base Excess ABG Hemoglobin ABG Oxyhemoglobin ABG Sodium ABG Potassium ABG Chloride ABG Glucose Carboxyhemoglobin Sodium 135 L Potassium Chloride Carbon Dioxide 21 L BUN 62 H Creatinine 3.8 H Glucose 132 H POC Glucose 130 H Lactic Acid Calcium 5.6 L* Ionized Calcium 3.3 L Phosphorus Magnesium AST Alkaline Phosphatase Total Protein Albumin Triglycerides Arterial Blood Glucose Arterial Blood Ionized Calcium Urine Creatinine Crossmatch 12/28/20 12/28/20 12/28/20 05:36 07:08 07:28 WBC 27.2 H RBC 3.50 L Hgb 9.6 L Hct 30.8 L MCV MCHC 31 L RDW 16.1 H Plt Count 111 L Lymph % (Auto) Eos % (Auto) Lymph # (Auto) Eos # (Auto) Seg Neutrophils % Seg Neuts % (Manual) 95.0 H Lymphocytes % (Manual) Seg Neutrophils # Seg Neutrophils # Man 25.8 H Lymphocytes # (Manual) 0.0 L Monocytes # (Manual) 1.1 H PT INR APTT Fibrinogen ABG pH 7.200 L POC ABG pCO2 POC ABG pO2 67.2 L ABG pO2 ABG Base Excess ABG Hemoglobin 10.3 L ABG Oxyhemoglobin 89.6 L ABG Sodium 127.8 L ABG Potassium 5.1 H ABG Chloride ABG Glucose 132 H Carboxyhemoglobin 0.4 L Sodium Potassium Chloride Carbon Dioxide BUN Creatinine Glucose POC Glucose 128 H Lactic Acid Calcium Ionized Calcium Phosphorus Magnesium AST Alkaline Phosphatase Total Protein Albumin Triglycerides Arterial Blood Glucose 132 H Arterial Blood Ionized Calcium 3.5 L Urine Creatinine Crossmatch 12/28/20 12/28/20 12/28/20 07:28 11:37 13:25 WBC RBC Hgb Hct MCV MCHC RDW Plt Count Lymph % (Auto) Eos % (Auto) Lymph # (Auto) Eos # (Auto) Seg Neutrophils % Seg Neuts % (Manual) Lymphocytes % (Manual) Seg Neutrophils # Seg Neutrophils # Man Lymphocytes # (Manual) Monocytes # (Manual) PT INR APTT Fibrinogen ABG pH POC ABG pCO2 POC ABG pO2 ABG pO2 ABG Base Excess ABG Hemoglobin ABG Oxyhemoglobin ABG Sodium ABG Potassium ABG Chloride ABG Glucose Carboxyhemoglobin Sodium 131 L 133 L Potassium 5.9 H 5.1 H Chloride 97.1 L Carbon Dioxide 15 L 21 L BUN 70 H 77 H Creatinine 4.0 H 4.4 H Glucose 118 H 140 H POC Glucose 135 H Lactic Acid Calcium 6.3 L 6.3 L Ionized Calcium Phosphorus 7.10 H Magnesium AST 144 H Alkaline Phosphatase Total Protein 4.8 L Albumin 1.3 L Triglycerides Arterial Blood Glucose Arterial Blood Ionized Calcium Urine Creatinine Crossmatch 12/28/20 12/28/20 12/29/20 16:38 23:28 03:08 WBC RBC Hgb Hct MCV MCHC RDW Plt Count Lymph % (Auto) Eos % (Auto) Lymph # (Auto) Eos # (Auto) Seg Neutrophils % Seg Neuts % (Manual) Lymphocytes % (Manual) Seg Neutrophils # Seg Neutrophils # Man Lymphocytes # (Manual) Monocytes # (Manual) PT INR APTT Fibrinogen ABG pH 7.301 L POC ABG pCO2 POC ABG pO2 151.1 H ABG pO2 ABG Base Excess ABG Hemoglobin 8.7 L ABG Oxyhemoglobin 98.2 H ABG Sodium 123.4 L ABG Potassium ABG Chloride 97.0 L ABG Glucose 144 H Carboxyhemoglobin Sodium Potassium Chloride Carbon Dioxide BUN Creatinine Glucose POC Glucose 140 H 134 H Lactic Acid Calcium Ionized Calcium Phosphorus Magnesium AST Alkaline Phosphatase Total Protein Albumin Triglycerides Arterial Blood Glucose 144 H Arterial Blood Ionized Calcium 3.4 L Urine Creatinine Crossmatch 12/29/20 12/29/20 12/29/20 05:20 05:20 06:01 WBC 21.0 H RBC 2.89 L Hgb 8.1 L Hct 25.5 L MCV MCHC RDW 16.1 H Plt Count 124 L Lymph % (Auto) Eos % (Auto) Lymph # (Auto) Eos # (Auto) Seg Neutrophils % Seg Neuts % (Manual) Lymphocytes % (Manual) Seg Neutrophils # Seg Neutrophils # Man Lymphocytes # (Manual) Monocytes # (Manual) PT INR APTT Fibrinogen ABG pH POC ABG pCO2 POC ABG pO2 ABG pO2 ABG Base Excess ABG Hemoglobin ABG Oxyhemoglobin ABG Sodium ABG Potassium ABG Chloride ABG Glucose Carboxyhemoglobin Sodium 131 L Potassium Chloride 93.4 L Carbon Dioxide BUN 79 H Creatinine 4.7 H Glucose 122 H POC Glucose 108 H Lactic Acid Calcium 5.5 L* Ionized Calcium Phosphorus 5.70 H Magnesium 1.60 L AST Alkaline Phosphatase Total Protein Albumin Triglycerides Arterial Blood Glucose Arterial Blood Ionized Calcium Urine Creatinine Crossmatch 12/29/20 12/29/20 12/29/20 10:04 11:27 17:31 WBC RBC Hgb Hct MCV MCHC RDW Plt Count Lymph % (Auto) Eos % (Auto) Lymph # (Auto) Eos # (Auto) Seg Neutrophils % Seg Neuts % (Manual) Lymphocytes % (Manual) Seg Neutrophils # Seg Neutrophils # Man Lymphocytes # (Manual) Monocytes # (Manual) PT INR APTT Fibrinogen ABG pH POC ABG pCO2 POC ABG pO2 ABG pO2 ABG Base Excess ABG Hemoglobin ABG Oxyhemoglobin ABG Sodium ABG Potassium ABG Chloride ABG Glucose Carboxyhemoglobin Sodium Potassium Chloride Carbon Dioxide BUN Creatinine Glucose POC Glucose 107 H 112 H 110 H Lactic Acid Calcium Ionized Calcium Phosphorus Magnesium AST Alkaline Phosphatase Total Protein Albumin Triglycerides Arterial Blood Glucose Arterial Blood Ionized Calcium Urine Creatinine Crossmatch 12/30/20 12/30/20 12/30/20 03:31 08:06 17:39 WBC RBC Hgb Hct MCV MCHC RDW Plt Count Lymph % (Auto) Eos % (Auto) Lymph # (Auto) Eos # (Auto) Seg Neutrophils % Seg Neuts % (Manual) Lymphocytes % (Manual) Seg Neutrophils # Seg Neutrophils # Man Lymphocytes # (Manual) Monocytes # (Manual) PT INR APTT Fibrinogen ABG pH 7.261 L POC ABG pCO2 POC ABG pO2 123.1 H ABG pO2 ABG Base Excess ABG Hemoglobin 8.7 L ABG Oxyhemoglobin ABG Sodium 123.2 L ABG Potassium ABG Chloride 96.0 L ABG Glucose 112 H Carboxyhemoglobin Sodium 128 L Potassium Chloride 90.7 L Carbon Dioxide 21 L BUN 86 H Creatinine 4.9 H Glucose 107 H POC Glucose 134 H Lactic Acid Calcium 6.2 L Ionized Calcium Phosphorus 5.30 H Magnesium 1.50 L AST Alkaline Phosphatase Total Protein Albumin Triglycerides Arterial Blood Glucose 112 H Arterial Blood Ionized Calcium 3.2 L Urine Creatinine Crossmatch 12/30/20 12/31/20 12/31/20 22:45 02:14 04:40 WBC RBC Hgb Hct MCV MCHC RDW Plt Count Lymph % (Auto) Eos % (Auto) Lymph # (Auto) Eos # (Auto) Seg Neutrophils % Seg Neuts % (Manual) Lymphocytes % (Manual) Seg Neutrophils # Seg Neutrophils # Man Lymphocytes # (Manual) Monocytes # (Manual) PT INR APTT Fibrinogen ABG pH 7.267 L POC ABG pCO2 POC ABG pO2 ABG pO2 ABG Base Excess ABG Hemoglobin 8.0 L ABG Oxyhemoglobin 93.7 L ABG Sodium ABG Potassium ABG Chloride 95.0 L ABG Glucose 108 H Carboxyhemoglobin 1.7 H Sodium 126 L Potassium Chloride 90.3 L Carbon Dioxide 20 L BUN 70 H Creatinine 4.3 H Glucose 209 H POC Glucose 109 H Lactic Acid Calcium 6.6 L Ionized Calcium Phosphorus 4.70 H Magnesium 1.60 L AST Alkaline Phosphatase Total Protein Albumin Triglycerides 157 H Arterial Blood Glucose 108 H Arterial Blood Ionized Calcium 3.7 L Urine Creatinine Crossmatch 12/31/20 12/31/20 01/01/21 16:23 23:21 04:00 WBC 18.0 H RBC 2.75 L Hgb 7.7 L Hct 23.9 L MCV MCHC RDW 15.6 H Plt Count Lymph % (Auto) Eos % (Auto) Lymph # (Auto) Eos # (Auto) Seg Neutrophils % Seg Neuts % (Manual) 91.0 H Lymphocytes % (Manual) 6.0 L Seg Neutrophils # Seg Neutrophils # Man 16.4 H Lymphocytes # (Manual) 1.1 L Monocytes # (Manual) PT INR APTT Fibrinogen ABG pH 7.264 L POC ABG pCO2 POC ABG pO2 74.8 L ABG pO2 ABG Base Excess ABG Hemoglobin 7.1 L ABG Oxyhemoglobin 92.1 L ABG Sodium 124.9 L ABG Potassium ABG Chloride 95.0 L ABG Glucose 111 H Carboxyhemoglobin 1.7 H Sodium Potassium Chloride Carbon Dioxide BUN Creatinine Glucose POC Glucose 125 H Lactic Acid Calcium Ionized Calcium Phosphorus Magnesium AST Alkaline Phosphatase Total Protein Albumin Triglycerides Arterial Blood Glucose 111 H Arterial Blood Ionized Calcium 4.0 L Urine Creatinine Crossmatch 01/01/21 01/01/21 01/01/21 05:50 13:41 15:55 WBC RBC Hgb Hct MCV MCHC RDW Plt Count Lymph % (Auto) Eos % (Auto) Lymph # (Auto) Eos # (Auto) Seg Neutrophils % Seg Neuts % (Manual) Lymphocytes % (Manual) Seg Neutrophils # Seg Neutrophils # Man Lymphocytes # (Manual) Monocytes # (Manual) PT INR APTT Fibrinogen ABG pH 7.148 L 7.207 L POC ABG pCO2 53.1 H POC ABG pO2 57.3 L 138.4 H ABG pO2 ABG Base Excess ABG Hemoglobin 9.0 L 8.3 L ABG Oxyhemoglobin 83.2 L ABG Sodium 126.2 L 124.5 L ABG Potassium ABG Chloride 95.0 L 95.0 L ABG Glucose 96 H 120 H Carboxyhemoglobin Sodium 131 L Potassium Chloride 93.3 L Carbon Dioxide 21 L BUN 67 H Creatinine 4.2 H Glucose POC Glucose Lactic Acid Calcium 7.1 L Ionized Calcium Phosphorus Magnesium AST 60 H Alkaline Phosphatase Total Protein 4.8 L Albumin 1.4 L Triglycerides Arterial Blood Glucose 96 H 120 H Arterial Blood Ionized Calcium 4.1 L 3.9 L Urine Creatinine Crossmatch 01/01/21 01/01/21 01/02/21 17:09 23:24 03:47 WBC RBC Hgb Hct MCV MCHC RDW Plt Count Lymph % (Auto) Eos % (Auto) Lymph # (Auto) Eos # (Auto) Seg Neutrophils % Seg Neuts % (Manual) Lymphocytes % (Manual) Seg Neutrophils # Seg Neutrophils # Man Lymphocytes # (Manual) Monocytes # (Manual) PT INR APTT Fibrinogen ABG pH 7.276 L POC ABG pCO2 POC ABG pO2 173.6 H ABG pO2 ABG Base Excess ABG Hemoglobin 7 L ABG Oxyhemoglobin ABG Sodium 122.4 L ABG Potassium ABG Chloride 94.0 L ABG Glucose 118 H Carboxyhemoglobin Sodium Potassium Chloride Carbon Dioxide BUN Creatinine Glucose POC Glucose 124 H 119 H Lactic Acid Calcium Ionized Calcium Phosphorus Magnesium AST Alkaline Phosphatase Total Protein Albumin Triglycerides Arterial Blood Glucose 118 H Arterial Blood Ionized Calcium 4.0 L Urine Creatinine Crossmatch 01/02/21 01/02/21 01/02/21 05:33 08:00 08:00 WBC 19.7 H RBC 2.53 L Hgb 7.1 L Hct 22.0 L MCV MCHC RDW 16.4 H Plt Count Lymph % (Auto) Eos % (Auto) Lymph # (Auto) Eos # (Auto) Seg Neutrophils % Seg Neuts % (Manual) Lymphocytes % (Manual) Seg Neutrophils # Seg Neutrophils # Man Lymphocytes # (Manual) Monocytes # (Manual) PT INR APTT Fibrinogen ABG pH POC ABG pCO2 POC ABG pO2 ABG pO2 ABG Base Excess ABG Hemoglobin ABG Oxyhemoglobin ABG Sodium ABG Potassium ABG Chloride ABG Glucose Carboxyhemoglobin Sodium 127 L Potassium Chloride 89.3 L Carbon Dioxide 19 L BUN 82 H Creatinine 5.0 H Glucose 103 H POC Glucose 107 H Lactic Acid Calcium 7.8 L Ionized Calcium Phosphorus 6.40 H Magnesium AST 47 H Alkaline Phosphatase Total Protein 5.0 L Albumin 1.6 L Triglycerides Arterial Blood Glucose Arterial Blood Ionized Calcium Urine Creatinine Crossmatch 01/02/21 01/03/21 01/03/21 17:25 07:56 09:47 WBC 17.7 H RBC 2.19 L Hgb 6.2 L Hct 18.5 L* MCV MCHC RDW 16.1 H Plt Count Lymph % (Auto) Eos % (Auto) Lymph # (Auto) Eos # (Auto) Seg Neutrophils % Seg Neuts % (Manual) Lymphocytes % (Manual) Seg Neutrophils # Seg Neutrophils # Man Lymphocytes # (Manual) Monocytes # (Manual) PT INR APTT Fibrinogen ABG pH POC ABG pCO2 POC ABG pO2 ABG pO2 ABG Base Excess ABG Hemoglobin ABG Oxyhemoglobin ABG Sodium ABG Potassium ABG Chloride ABG Glucose Carboxyhemoglobin Sodium 130 L Potassium 3.5 L Chloride 90.3 L Carbon Dioxide BUN 68 H Creatinine 3.9 H Glucose 103 H POC Glucose 116 H Lactic Acid Calcium 8.0 L Ionized Calcium Phosphorus 4.80 H D Magnesium AST Alkaline Phosphatase Total Protein Albumin Triglycerides Arterial Blood Glucose Arterial Blood Ionized Calcium Urine Creatinine Crossmatch 01/03/21 01/03/21 01/04/21 11:00 19:00 03:12 WBC 17.0 H RBC 2.51 L Hgb 7.1 L Hct 21.5 L MCV MCHC RDW 16.6 H Plt Count Lymph % (Auto) Eos % (Auto) Lymph # (Auto) Eos # (Auto) Seg Neutrophils % Seg Neuts % (Manual) Lymphocytes % (Manual) Seg Neutrophils # Seg Neutrophils # Man Lymphocytes # (Manual) Monocytes # (Manual) PT INR APTT Fibrinogen ABG pH 7.463 H POC ABG pCO2 POC ABG pO2 72.2 L ABG pO2 ABG Base Excess ABG Hemoglobin 6.2 L ABG Oxyhemoglobin 91.8 L ABG Sodium 128.4 L ABG Potassium 3.3 L ABG Chloride 96.0 L ABG Glucose 112 H Carboxyhemoglobin Sodium Potassium Chloride Carbon Dioxide BUN Creatinine Glucose POC Glucose Lactic Acid Calcium Ionized Calcium Phosphorus Magnesium AST Alkaline Phosphatase Total Protein Albumin Triglycerides Arterial Blood Glucose 112 H Arterial Blood Ionized Calcium 4.3 L Urine Creatinine Crossmatch See Detail 01/04/21 01/04/21 01/04/21 05:16 06:20 06:20 WBC 18.5 H RBC 2.53 L Hgb 7.4 L Hct 21.9 L MCV MCHC RDW 15.8 H Plt Count Lymph % (Auto) Eos % (Auto) Lymph # (Auto) Eos # (Auto) Seg Neutrophils % Seg Neuts % (Manual) Lymphocytes % (Manual) Seg Neutrophils # Seg Neutrophils # Man Lymphocytes # (Manual) Monocytes # (Manual) PT INR APTT Fibrinogen ABG pH POC ABG pCO2 POC ABG pO2 ABG pO2 ABG Base Excess ABG Hemoglobin ABG Oxyhemoglobin ABG Sodium ABG Potassium ABG Chloride ABG Glucose Carboxyhemoglobin Sodium 135 L Potassium Chloride 95.2 L Carbon Dioxide BUN 56 H Creatinine 3.2 H Glucose 109 H POC Glucose 123 H Lactic Acid Calcium 7.6 L Ionized Calcium Phosphorus Magnesium AST Alkaline Phosphatase Total Protein Albumin Triglycerides Arterial Blood Glucose Arterial Blood Ionized Calcium Urine Creatinine Crossmatch 01/05/21 01/05/21 01/05/21 03:50 07:22 07:22 WBC 23.8 H RBC 2.93 L Hgb 8.2 L Hct 25.1 L MCV MCHC RDW 16.5 H Plt Count Lymph % (Auto) Eos % (Auto) Lymph # (Auto) Eos # (Auto) Seg Neutrophils % Seg Neuts % (Manual) Lymphocytes % (Manual) Seg Neutrophils # Seg Neutrophils # Man Lymphocytes # (Manual) Monocytes # (Manual) PT INR APTT Fibrinogen ABG pH POC ABG pCO2 POC ABG pO2 ABG pO2 136.8 H ABG Base Excess -2.3 L ABG Hemoglobin 6.9 L ABG Oxyhemoglobin ABG Sodium ABG Potassium ABG Chloride ABG Glucose Carboxyhemoglobin Sodium 134 L Potassium Chloride 93.3 L Carbon Dioxide BUN 77 H Creatinine 4.2 H Glucose 105 H POC Glucose Lactic Acid Calcium Ionized Calcium Phosphorus 4.90 H D Magnesium AST Alkaline Phosphatase Total Protein Albumin Triglycerides Arterial Blood Glucose Arterial Blood Ionized Calcium Urine Creatinine Crossmatch 01/05/21 01/05/21 01/05/21 11:02 14:06 15:37 WBC RBC Hgb Hct MCV MCHC RDW Plt Count Lymph % (Auto) Eos % (Auto) Lymph # (Auto) Eos # (Auto) Seg Neutrophils % Seg Neuts % (Manual) Lymphocytes % (Manual) Seg Neutrophils # Seg Neutrophils # Man Lymphocytes # (Manual) Monocytes # (Manual) PT INR APTT Fibrinogen ABG pH POC ABG pCO2 POC ABG pO2 332.3 H ABG pO2 ABG Base Excess ABG Hemoglobin 7.7 L ABG Oxyhemoglobin 98.7 H ABG Sodium 131.0 L ABG Potassium 3.3 L ABG Chloride 97.0 L ABG Glucose 118 H Carboxyhemoglobin Sodium Potassium Chloride Carbon Dioxide BUN Creatinine Glucose POC Glucose 118 H 111 H Lactic Acid Calcium Ionized Calcium Phosphorus Magnesium AST Alkaline Phosphatase Total Protein Albumin Triglycerides Arterial Blood Glucose 118 H Arterial Blood Ionized Calcium 4.4 L Urine Creatinine Crossmatch 01/05/21 01/06/21 01/06/21 23:18 04:00 04:20 WBC RBC Hgb Hct MCV MCHC RDW Plt Count Lymph % (Auto) Eos % (Auto) Lymph # (Auto) Eos # (Auto) Seg Neutrophils % Seg Neuts % (Manual) Lymphocytes % (Manual) Seg Neutrophils # Seg Neutrophils # Man Lymphocytes # (Manual) Monocytes # (Manual) PT INR APTT Fibrinogen ABG pH POC ABG pCO2 POC ABG pO2 230.5 H ABG pO2 ABG Base Excess ABG Hemoglobin 7.9 L ABG Oxyhemoglobin 98.5 H ABG Sodium 129.4 L ABG Potassium ABG Chloride 97.0 L ABG Glucose 117 H Carboxyhemoglobin Sodium 133 L Potassium Chloride 94.4 L Carbon Dioxide BUN 62 H Creatinine 3.6 H Glucose 110 H POC Glucose 110 H Lactic Acid Calcium 7.8 L Ionized Calcium Phosphorus Magnesium AST Alkaline Phosphatase Total Protein Albumin Triglycerides Arterial Blood Glucose 117 H Arterial Blood Ionized Calcium 4.5 L Urine Creatinine Crossmatch 01/06/21 01/06/21 01/06/21 05:28 09:00 11:00 WBC 15.2 H RBC 2.18 L Hgb 6.5 L Hct 21.8 L MCV 100 H MCHC 30 L RDW 18.5 H Plt Count Lymph % (Auto) Eos % (Auto) Lymph # (Auto) Eos # (Auto) Seg Neutrophils % Seg Neuts % (Manual) Lymphocytes % (Manual) Seg Neutrophils # Seg Neutrophils # Man Lymphocytes # (Manual) Monocytes # (Manual) PT INR APTT Fibrinogen ABG pH POC ABG pCO2 POC ABG pO2 ABG pO2 ABG Base Excess ABG Hemoglobin ABG Oxyhemoglobin ABG Sodium ABG Potassium ABG Chloride ABG Glucose Carboxyhemoglobin Sodium Potassium Chloride Carbon Dioxide BUN Creatinine Glucose POC Glucose 109 H Lactic Acid Calcium Ionized Calcium Phosphorus Magnesium AST Alkaline Phosphatase Total Protein Albumin Triglycerides Arterial Blood Glucose Arterial Blood Ionized Calcium Urine Creatinine Crossmatch See Detail 01/06/21 01/06/21 01/07/21 11:32 23:44 03:10 WBC 15.3 H RBC 2.30 L Hgb 6.7 L Hct 20.1 L MCV MCHC RDW 16.6 H Plt Count Lymph % (Auto) Eos % (Auto) Lymph # (Auto) Eos # (Auto) Seg Neutrophils % Seg Neuts % (Manual) Lymphocytes % (Manual) Seg Neutrophils # Seg Neutrophils # Man Lymphocytes # (Manual) Monocytes # (Manual) PT INR APTT Fibrinogen ABG pH POC ABG pCO2 POC ABG pO2 ABG pO2 ABG Base Excess ABG Hemoglobin ABG Oxyhemoglobin ABG Sodium ABG Potassium ABG Chloride ABG Glucose Carboxyhemoglobin Sodium Potassium Chloride Carbon Dioxide BUN Creatinine Glucose POC Glucose 113 H 118 H Lactic Acid Calcium Ionized Calcium Phosphorus Magnesium AST Alkaline Phosphatase Total Protein Albumin Triglycerides Arterial Blood Glucose Arterial Blood Ionized Calcium Urine Creatinine Crossmatch 01/07/21 01/07/21 01/07/21 03:10 04:17 05:06 WBC RBC Hgb Hct MCV MCHC RDW Plt Count Lymph % (Auto) Eos % (Auto) Lymph # (Auto) Eos # (Auto) Seg Neutrophils % Seg Neuts % (Manual) Lymphocytes % (Manual) Seg Neutrophils # Seg Neutrophils # Man Lymphocytes # (Manual) Monocytes # (Manual) PT INR APTT Fibrinogen ABG pH 7.272 L POC ABG pCO2 50.1 H POC ABG pO2 ABG pO2 ABG Base Excess ABG Hemoglobin 8.4 L ABG Oxyhemoglobin ABG Sodium 128.6 L ABG Potassium ABG Chloride 95.0 L ABG Glucose 109 H Carboxyhemoglobin Sodium 133 L Potassium Chloride 93.6 L Carbon Dioxide BUN 85 H Creatinine 3.9 H Glucose 112 H POC Glucose 106 H Lactic Acid Calcium Ionized Calcium Phosphorus 4.70 H D Magnesium AST Alkaline Phosphatase Total Protein Albumin Triglycerides Arterial Blood Glucose 109 H Arterial Blood Ionized Calcium Urine Creatinine Crossmatch 01/07/21 01/07/21 01/07/21 14:05 16:00 23:25 WBC RBC Hgb 8.1 L Hct 24.2 L MCV MCHC RDW Plt Count Lymph % (Auto) Eos % (Auto) Lymph # (Auto) Eos # (Auto) Seg Neutrophils % Seg Neuts % (Manual) Lymphocytes % (Manual) Seg Neutrophils # Seg Neutrophils # Man Lymphocytes # (Manual) Monocytes # (Manual) PT INR APTT Fibrinogen ABG pH POC ABG pCO2 POC ABG pO2 ABG pO2 ABG Base Excess ABG Hemoglobin 7.2 L ABG Oxyhemoglobin ABG Sodium 127.3 L ABG Potassium ABG Chloride 96.0 L ABG Glucose 98 H Carboxyhemoglobin Sodium Potassium Chloride Carbon Dioxide BUN Creatinine Glucose POC Glucose 106 H Lactic Acid Calcium Ionized Calcium Phosphorus Magnesium AST Alkaline Phosphatase Total Protein Albumin Triglycerides Arterial Blood Glucose 98 H Arterial Blood Ionized Calcium Urine Creatinine Crossmatch 06/20/21 06/20/21 06/20/21 03:22 05:30 23:22 WBC RBC Hgb Hct MCV MCHC RDW Plt Count Lymph % (Auto) Eos % (Auto) Lymph # (Auto) Eos # (Auto) Seg Neutrophils % Seg Neuts % (Manual) Lymphocytes % (Manual) Seg Neutrophils # Seg Neutrophils # Man Lymphocytes # (Manual) Monocytes # (Manual) PT INR APTT Fibrinogen ABG pH POC ABG pCO2 POC ABG pO2 71.3 L ABG pO2 ABG Base Excess ABG Hemoglobin 8.7 L ABG Oxyhemoglobin 92.2 L ABG Sodium 125.9 L ABG Potassium ABG Chloride 96.0 L ABG Glucose 124 H Carboxyhemoglobin Sodium Potassium Chloride Carbon Dioxide BUN Creatinine Glucose POC Glucose 118 H 110 H Lactic Acid Calcium Ionized Calcium Phosphorus Magnesium AST Alkaline Phosphatase Total Protein Albumin Triglycerides Arterial Blood Glucose 124 H Arterial Blood Ionized Calcium Urine Creatinine Crossmatch 01/08/21 01/08/21 01/09/21 Unknown Unknown 08:45 WBC 15.2 H RBC 2.62 L Hgb 7.6 L Hct 22.7 L MCV MCHC RDW 16.7 H Plt Count Lymph % (Auto) Eos % (Auto) Lymph # (Auto) Eos # (Auto) Seg Neutrophils % Seg Neuts % (Manual) 95.0 H Lymphocytes % (Manual) 3.0 L Seg Neutrophils # Seg Neutrophils # Man 14.4 H Lymphocytes # (Manual) 0.5 L Monocytes # (Manual) PT INR APTT Fibrinogen ABG pH POC ABG pCO2 POC ABG pO2 ABG pO2 ABG Base Excess ABG Hemoglobin ABG Oxyhemoglobin ABG Sodium ABG Potassium ABG Chloride ABG Glucose Carboxyhemoglobin Sodium 129 L 129 L Potassium Chloride 91.2 L 92.7 L Carbon Dioxide 21 L 19 L BUN 91 H 105 H Creatinine 4.0 H 4.4 H Glucose 115 H 107 H POC Glucose Lactic Acid Calcium Ionized Calcium Phosphorus 5.00 H Magnesium AST Alkaline Phosphatase Total Protein 5.3 L Albumin 1.6 L Triglycerides 166 H Arterial Blood Glucose Arterial Blood Ionized Calcium Urine Creatinine Crossmatch 01/09/21 01/09/21 01/10/21 10:10 23:51 04:00 WBC 14.1 H RBC 2.50 L Hgb 7.2 L Hct 21.6 L MCV MCHC RDW 16.5 H Plt Count Lymph % (Auto) Eos % (Auto) Lymph # (Auto) Eos # (Auto) Seg Neutrophils % Seg Neuts % (Manual) 92.0 H Lymphocytes % (Manual) 2.0 L Seg Neutrophils # Seg Neutrophils # Man 13.0 H Lymphocytes # (Manual) 0.3 L Monocytes # (Manual) PT INR APTT Fibrinogen ABG pH 7.273 L POC ABG pCO2 POC ABG pO2 ABG pO2 ABG Base Excess ABG Hemoglobin 8.7 L ABG Oxyhemoglobin ABG Sodium 126.2 L ABG Potassium 4.8 H ABG Chloride 96.0 L ABG Glucose 160 H Carboxyhemoglobin Sodium Potassium Chloride Carbon Dioxide BUN Creatinine Glucose POC Glucose 154 H Lactic Acid Calcium Ionized Calcium Phosphorus Magnesium AST Alkaline Phosphatase Total Protein Albumin Triglycerides Arterial Blood Glucose 160 H Arterial Blood Ionized Calcium Urine Creatinine Crossmatch 01/10/21 01/10/21 01/10/21 04:01 04:01 04:01 WBC 12.6 H RBC 2.89 L Hgb 8.1 L Hct 24.9 L MCV MCHC RDW 16.6 H Plt Count Lymph % (Auto) Eos % (Auto) Lymph # (Auto) Eos # (Auto) Seg Neutrophils % Seg Neuts % (Manual) 95.0 H Lymphocytes % (Manual) 3.0 L Seg Neutrophils # Seg Neutrophils # Man 12.0 H Lymphocytes # (Manual) 0.4 L Monocytes # (Manual) PT 15.4 H INR 1.17 H APTT 40.2 H Fibrinogen 817 H ABG pH POC ABG pCO2 POC ABG pO2 ABG pO2 ABG Base Excess ABG Hemoglobin ABG Oxyhemoglobin ABG Sodium ABG Potassium ABG Chloride ABG Glucose Carboxyhemoglobin Sodium 128 L Potassium Chloride 90.4 L Carbon Dioxide 19 L BUN 113 H Creatinine 4.5 H Glucose 162 H POC Glucose Lactic Acid Calcium Ionized Calcium Phosphorus 5.70 H Magnesium AST Alkaline Phosphatase Total Protein 6.2 L Albumin 2.1 L Triglycerides Arterial Blood Glucose Arterial Blood Ionized Calcium Urine Creatinine Crossmatch 01/10/21 01/10/21 01/11/21 05:31 11:45 04:00 WBC RBC Hgb Hct MCV MCHC RDW Plt Count Lymph % (Auto) Eos % (Auto) Lymph # (Auto) Eos # (Auto) Seg Neutrophils % Seg Neuts % (Manual) Lymphocytes % (Manual) Seg Neutrophils # Seg Neutrophils # Man Lymphocytes # (Manual) Monocytes # (Manual) PT INR APTT Fibrinogen ABG pH 7.311 L POC ABG pCO2 49.2 H POC ABG pO2 ABG pO2 ABG Base Excess ABG Hemoglobin 9.4 L ABG Oxyhemoglobin ABG Sodium 130.3 L ABG Potassium ABG Chloride 96.0 L ABG Glucose 104 H Carboxyhemoglobin Sodium Potassium Chloride Carbon Dioxide BUN Creatinine Glucose POC Glucose 150 H 145 H Lactic Acid Calcium Ionized Calcium Phosphorus Magnesium AST Alkaline Phosphatase Total Protein Albumin Triglycerides Arterial Blood Glucose 104 H Arterial Blood Ionized Calcium Urine Creatinine Crossmatch 01/11/21 01/11/21 01/12/21 04:45 17:29 05:51 WBC RBC Hgb Hct MCV MCHC RDW Plt Count Lymph % (Auto) Eos % (Auto) Lymph # (Auto) Eos # (Auto) Seg Neutrophils % Seg Neuts % (Manual) Lymphocytes % (Manual) Seg Neutrophils # Seg Neutrophils # Man Lymphocytes # (Manual) Monocytes # (Manual) PT INR APTT Fibrinogen ABG pH POC ABG pCO2 POC ABG pO2 ABG pO2 ABG Base Excess ABG Hemoglobin ABG Oxyhemoglobin ABG Sodium ABG Potassium ABG Chloride ABG Glucose Carboxyhemoglobin Sodium 134 L Potassium 3.5 L D Chloride 95.5 L Carbon Dioxide BUN 88 H Creatinine 3.5 H Glucose 103 H POC Glucose 109 H 114 H Lactic Acid Calcium Ionized Calcium Phosphorus Magnesium AST Alkaline Phosphatase Total Protein Albumin Triglycerides Arterial Blood Glucose Arterial Blood Ionized Calcium Urine Creatinine Crossmatch 01/12/21 01/12/21 01/12/21 10:00 10:00 11:56 WBC RBC Hgb Hct MCV MCHC RDW Plt Count Lymph % (Auto) Eos % (Auto) Lymph # (Auto) Eos # (Auto) Seg Neutrophils % Seg Neuts % (Manual) Lymphocytes % (Manual) Seg Neutrophils # Seg Neutrophils # Man Lymphocytes # (Manual) Monocytes # (Manual) PT INR APTT Fibrinogen ABG pH POC ABG pCO2 POC ABG pO2 ABG pO2 ABG Base Excess ABG Hemoglobin ABG Oxyhemoglobin ABG Sodium ABG Potassium ABG Chloride ABG Glucose Carboxyhemoglobin Sodium 136 L Potassium Chloride 95.2 L Carbon Dioxide BUN 102 H Creatinine 3.6 H Glucose 106 H POC Glucose 113 H Lactic Acid Calcium Ionized Calcium Phosphorus 4.90 H Magnesium AST Alkaline Phosphatase Total Protein Albumin Triglycerides 153 H Arterial Blood Glucose Arterial Blood Ionized Calcium Urine Creatinine Crossmatch 01/12/21 01/12/21 01/13/21 17:43 23:31 03:14 WBC RBC Hgb Hct MCV MCHC RDW Plt Count Lymph % (Auto) Eos % (Auto) Lymph # (Auto) Eos # (Auto) Seg Neutrophils % Seg Neuts % (Manual) Lymphocytes % (Manual) Seg Neutrophils # Seg Neutrophils # Man Lymphocytes # (Manual) Monocytes # (Manual) PT INR APTT Fibrinogen ABG pH 7.484 H POC ABG pCO2 POC ABG pO2 ABG pO2 ABG Base Excess ABG Hemoglobin 8.4 L ABG Oxyhemoglobin ABG Sodium 134.4 L ABG Potassium 3.1 L ABG Chloride ABG Glucose 117 H Carboxyhemoglobin Sodium Potassium Chloride Carbon Dioxide BUN Creatinine Glucose POC Glucose 113 H 108 H Lactic Acid Calcium Ionized Calcium Phosphorus Magnesium AST Alkaline Phosphatase Total Protein Albumin Triglycerides Arterial Blood Glucose 117 H Arterial Blood Ionized Calcium 4.5 L Urine Creatinine Crossmatch 01/13/21 01/13/21 01/13/21 04:56 05:00 05:00 WBC RBC 2.87 L Hgb 8.0 L Hct 24.4 L MCV MCHC RDW 17.2 H Plt Count Lymph % (Auto) Eos % (Auto) Lymph # (Auto) Eos # (Auto) Seg Neutrophils % Seg Neuts % (Manual) Lymphocytes % (Manual) Seg Neutrophils # Seg Neutrophils # Man Lymphocytes # (Manual) Monocytes # (Manual) PT INR APTT Fibrinogen ABG pH POC ABG pCO2 POC ABG pO2 ABG pO2 ABG Base Excess ABG Hemoglobin ABG Oxyhemoglobin ABG Sodium ABG Potassium ABG Chloride ABG Glucose Carboxyhemoglobin Sodium Potassium 3.0 L Chloride 97.6 L Carbon Dioxide BUN 69 H Creatinine 2.9 H Glucose 114 H POC Glucose 110 H Lactic Acid Calcium 8.0 L Ionized Calcium Phosphorus Magnesium AST Alkaline Phosphatase Total Protein Albumin Triglycerides Arterial Blood Glucose Arterial Blood Ionized Calcium Urine Creatinine Crossmatch 01/13/21 01/14/21 01/14/21 12:09 05:00 05:00 WBC 12.4 H RBC 2.72 L Hgb 7.7 L Hct 23.3 L MCV MCHC RDW 17.3 H Plt Count Lymph % (Auto) 6.5 L Eos % (Auto) 7.7 H Lymph # (Auto) 0.8 L Eos # (Auto) 1.0 H Seg Neutrophils % 82.7 H Seg Neuts % (Manual) Lymphocytes % (Manual) Seg Neutrophils # 10.2 H Seg Neutrophils # Man Lymphocytes # (Manual) Monocytes # (Manual) PT INR APTT Fibrinogen ABG pH POC ABG pCO2 POC ABG pO2 ABG pO2 ABG Base Excess ABG Hemoglobin ABG Oxyhemoglobin ABG Sodium ABG Potassium ABG Chloride ABG Glucose Carboxyhemoglobin Sodium Potassium 3.2 L Chloride Carbon Dioxide BUN 79 H Creatinine 3.1 H Glucose POC Glucose 111 H Lactic Acid Calcium Ionized Calcium Phosphorus Magnesium AST Alkaline Phosphatase Total Protein Albumin Triglycerides Arterial Blood Glucose Arterial Blood Ionized Calcium Urine Creatinine Crossmatch
[2021-01-14] MEDS: FENTANYL 50 MCG/HR TD SCH (09:44)
[2021-01-14] MEDS: FAMOTIDINE 20 MG/2 ML INJ IV SCH (09:44)
--- NOTE | 2021-01-14 10:09 | Progress Note ---
Assessment and Plan Assessment and plan: 60-year-old male with obesity, hypertension, nicotine dependence, PVD s/p stent placement on dual antiplatelet therapy, hyperlipidemia, OA, GERD, ventral hernia and small bowel obstruction who was admitted with small bowel obstruction and peritonitis Septic Shock, POA (presented with leukocytosis, tachycardia, tachypnea,febrile and evidence of peritonitis) HPI -12/20 CT abdomen/pelvis showed high-grade small bowel obstruction related to severe complex ventral abdominal wall hernias, progressed in appearance from prior exam from 09/12/2020 without evidence of pneumonitis or pneumoperitoneum, patchy bibasilar airspace disease concern for atypical infectious process/pneumonitis --s/p ex lap, extensive lysis of adhesions, small bowel re section (removal of 70 cm necrotic small bowel segment), peritoneal lavage and ABThera abdominal wound VAC placement -12/23 s/p abdominal exploration, small bowel resection, peritoneal lavage, ABThera wound VAC placement -12/26 s/p ex lap, small bowel resection, peritoneal lavage, ABThera wound VAC placement -12/27 s/p ex lap, extensive lysis of adhesions, small bowel resection (removal of 70 cm necrotic small bowel segment), peritoneal lavage and ABThera abdominal wound VAC placement. -12/29 s/p ex lap, small bowel resection, small bowel anastomosis and ABThera wound VAC placement -01/01 s/p myocutaneous flap creation, abdominal wall component separation and placement of phasix mesh with surgery yesterday where his abdomen was closed and 2 LAURA drains were placed on either side of his midline between fascia and SQ tissue. -12/30 initiated on HD by nephro -01/03 RBC x2 -01/06 RBC -01/07 RBC -01/09 stool pos for guiac; CT Chest/abd/pelvis -01/10: Patient this morning with elevated BP, likely secondary to pain vs ?Hx of Htn, Hydralazine PRN ordered and added to the patient, will monitor. Continue pain control. Wound care management and vent weaning when ok with surgery and Cutting Torch Operator 01/12: Continue supportive care including pain control. Monitor for bowel movement. Continue off antibiotics per ID monitor. Platform Material Handler Manager following for HD. 01/13/21 patient is seen and examined. Patient is still on vent. Wean to extubate as per critical care. Patient is off antibiotic as per infectious disease. Status post dialysis catheter placed in the right IJ. HD as per nephrology. Continue current management. Recheck CBC BMP in the morning. 01/14/21 patient seen and examined. Patient is still on vent. Patient is agitated. We will try to wean the sedation. We will start metoprolol 5 mg p.o. every 8 hours as needed for blood pressure. Patient is off antibiotic as per infectious disease. Continue hemodialysis as per nephrology. Continue current management. Critical care follow-up. Prognosis is guarded. Recheck CBC BMP in the morning Problem List COVID-19 PUI, ruled out Small bowel obstruction with peritonitis Ventral hernia s/p repair Leukocytosis Anemia Hyponatremia Hypochloremia Acute Kidney Injury, on HD Obesity Hypertension Nicotine dependence CAD s/p stent placement Hyperlipidemia Osteoarthritis GERD medical non adherence Systems Exam NEURO- uremic; sedated; generalized weakness; post op pain; high risk delirium opens eyes; nods appropriately; following commands PERRL generalized weakness fentanyl weaned off overnight now on dex and propofol - low doses dex does make pt bradycardic RASS goal neg 4 PRN tylenol for pain NOK mother - pt's brother was updated on plan of care case management following for d/c planning CV- nap SB-SR As pt is awake more his bp has increased PRN hydral RESP- post op resp failure remains ventilated on CMV [id number] daily ABG wean as tolerated to PS trails intubated 12/20 if fails to extubate soon - likely trach ABG daily and PRN GI- sp SBO with exlap repair; protein isha malnutrition TF at 10- tolerating well TPN nutrition following LAURA x 2/abd drains with minimal outpput continue to trend output Gen surg following CT chest abd and pelvis today with PO and IV contrast-01/09 see report stooling MI daily dulclox reglan daily pepcid scheduled - JONI requiring HD; hyponatremia; hyperK; uremia haley strict I/O trending electrolytes nephrology following HD usually M/W/F HD today - sp contrast -cleaned no UF- tolerated well kidney function seems to be returning pt was net neg 1.7L over the last 24 hurs- and he made 2.8L of urine Na 128 - continue to monitor; post HD today AM labs ordered HEME- post op anemia SQH VTE RBC x 2 on 01/03; RBC x 1 on 01/06 and RBC x 1 on 01/07 -- see hgb trend; not appropriate response Hgb stable today at 8.2 Gen surg has discussed with IR- will monitor for now- if there is a dec in Hgb will consider CTA abd/pelvis and IR intervention coags normal CBC in AM ID- leukocytosis ID following no antibiotics at this time trend WBC and temp curve consider rotation of vascath if concern for infection 12/21 covid neg 12/21 Hep. neg wound care per medical staff coordinator ENDO- DM2; hyperglycemia; obese SSI Q6H avoid hypoglycemia Disposition Plan: LTAC Total Time Spent with Patient (Minutes): 60 The high probability of a clinically significant, sudden or life threatening deterioration of the [multiple] system(s) required my full and direct attention, intervention and personal management. The aggregate critical care time was [60] minutes. This time is in addition to time spent performing reported procedures but includes the following: [x] Data Review and interpretation [x] Patient assessment and monitoring of vital signs [x] Documentation [x] Medication orders and management History Interval history: Patient is seen and examined Lab and medication reviewed Patient is still on vent. Agitated With sedation Hospitalist Physical - Constitutional Vitals: Temp Pulse Resp BP Pulse Ox 99.8 F H 87 26 H 121/64 94 01/14/21 07:00 01/14/21 09:00 01/14/21 09:00 01/14/21 09:00 01/14/21 09:00 General appearance: Present: mild distress, well-nourished, obese, other (sedated) - EENT Eyes: Present: PERRL, EOM intact ENT: clear oral mucosa, dentition normal - Neck Neck: Present: supple, normal ROM - Respiratory Respiratory effort: labored Respiratory: bilateral: diminished - Cardiovascular Rhythm: regular Heart Sounds: Present: S1 & S2 - Extremities Extremities: no ischemia Extremity abnormal: edema Peripheral Pulses: within normal limits - Abdominal General gastrointestinal: soft, non-tender, distended - Integumentary Integumentary: Present: clear, warm - Psychiatric Psychiatric: other (Patient is on vent) - Neurologic Neurologic: other (Patient is on vent) HEART Score - HEART Score EKG: Normal Age: < 45 Risk factors: No known risk factors Troponin: Troponin T < 0.010 ng/mL (0.00-0.029) 12/20/20 13:58 Troponin: < normal limit - Critical Actions Critical Actions: 0-3 pts:0.9-1.7%risk of adverse cardiac event.Candidate for discharge Results - Labs CBC & Chem 7: 01/14/21 05:00 01/14/21 05:00 Labs: Laboratory Last Values WBC 12.4 K/mm3 (4.5-11.0) H 01/14/21 05:00 RBC 2.72 M/mm3 (3.65-5.03) L 01/14/21 05:00 Hgb 7.7 gm/dl (11.8-15.2) L 01/14/21 05:00 Hct 23.3 % (35.5-45.6) L 01/14/21 05:00 MCV 86 fl (84-94) 01/14/21 05:00 MCH 28 pg (28-32) 01/14/21 05:00 MCHC 33 % (32-34) 01/14/21 05:00 RDW 17.3 % (13.2-15.2) H 01/14/21 05:00 Plt Count 274 K/mm3 (140-440) 01/14/21 05:00 Lymph % (Auto) 6.5 % (13.4-35.0) L 01/14/21 05:00 Grady % (Auto) 2.5 % (0.0-7.3) 01/14/21 05:00 Eos % (Auto) 7.7 % (0.0-4.3) H 01/14/21 05:00 Baso % (Auto) 0.6 % (0.0-1.8) 01/14/21 05:00 Lymph # (Auto) 0.8 K/mm3 (1.2-5.4) L 01/14/21 05:00 Grady # (Auto) 0.3 K/mm3 (0.0-0.8) 01/14/21 05:00 Eos # (Auto) 1.0 K/mm3 (0.0-0.4) H 01/14/21 05:00 Baso # (Auto) 0.1 K/mm3 (0.0-0.1) 01/14/21 05:00 Add Manual Diff Complete 01/10/21 04:01 Total Counted 100 01/10/21 04:01 Seg Neutrophils % 82.7 % (40.0-70.0) H 01/14/21 05:00 Seg Neuts % (Manual) 95.0 % (40.0-70.0) H 01/10/21 04:01 Band Neutrophils % 2.0 % 01/10/21 04:01 Lymphocytes % (Manual) 3.0 % (13.4-35.0) L 01/10/21 04:01 Monocytes % (Manual) 1.0 % (0.0-7.3) 01/09/21 10:10 Metamyelocytes % 1.0 % 01/09/21 10:10 Myelocytes % 1.0 % 01/09/21 10:10 Nucleated RBC % Not Reportable 01/10/21 04:01 Seg Neutrophils # 10.2 K/mm3 (1.8-7.7) H 01/14/21 05:00 Seg Neutrophils # Man 12.0 K/mm3 (1.8-7.7) H 01/10/21 04:01 Band Neutrophils # 0.3 K/mm3 01/10/21 04:01 Lymphocytes # (Manual) 0.4 K/mm3 (1.2-5.4) L 01/10/21 04:01 Abs React Lymphs (Man) 0.0 K/mm3 01/10/21 04:01 Monocytes # (Manual) 0.0 K/mm3 (0.0-0.8) 01/10/21 04:01 Eosinophils # (Manual) 0.0 K/mm3 (0.0-0.4) 01/10/21 04:01 Basophils # (Manual) 0.0 K/mm3 (0.0-0.1) 01/10/21 04:01 Metamyelocytes # 0.0 K/mm3 01/10/21 04:01 Myelocytes # 0.0 K/mm3 01/10/21 04:01 Promyelocytes # 0.0 K/mm3 01/10/21 04:01 Blast Cells # 0.0 K/mm3 01/10/21 04:01 WBC Morphology Not Reportable 01/10/21 04:01 Hypersegmented Neuts Not Reportable 01/10/21 04:01 Hyposegmented Neuts Not Reportable 01/10/21 04:01 Hypogranular Neuts Not Reportable 01/10/21 04:01 Smudge Cells Not Reportable 01/10/21 04:01 Toxic Granulation Not Reportable 01/10/21 04:01 Toxic Vacuolation Not Reportable 01/10/21 04:01 Dohle Bodies Not Reportable 01/10/21 04:01 Pelger-Huet Anomaly Not Reportable 01/10/21 04:01 Mirian Rods Not Reportable 01/10/21 04:01 Platelet Estimate Consistent w auto 01/10/21 04:01 Clumped Platelets Not Reportable 01/10/21 04:01 Plt Clumps, EDTA Not Reportable 01/10/21 04:01 Large Platelets Not Reportable 01/10/21 04:01 Giant Platelets Not Reportable 01/10/21 04:01 Platelet Satelliting Not Reportable 01/10/21 04:01 Plt Morphology Comment Not Reportable 01/10/21 04:01 RBC Morphology Not Reportable 01/10/21 04:01 Dimorphic RBCs Not Reportable 01/10/21 04:01 Polychromasia Not Reportable 01/10/21 04:01 Hypochromasia Few 01/10/21 04:01 Poikilocytosis Not Reportable 01/10/21 04:01 Anisocytosis Few 01/10/21 04:01 Microcytosis Few 01/10/21 04:01 Macrocytosis Not Reportable 01/10/21 04:01 Spherocytes Not Reportable 01/10/21 04:01 Pappenheimer Bodies Not Reportable 01/10/21 04:01 Sickle Cells Not Reportable 01/10/21 04:01 Target Cells Not Reportable 01/10/21 04:01 Tear Drop Cells Not Reportable 01/10/21 04:01 Ovalocytes Not Reportable 01/10/21 04:01 Helmet Cells Not Reportable 01/10/21 04:01 Mart-Bancroft Bodies Not Reportable 01/10/21 04:01 Lindsay Rings Not Reportable 01/10/21 04:01 [place] Cells Not Reportable 01/10/21 04:01 Bite Cells Not Reportable 01/10/21 04:01 Crenated Cell Not Reportable 01/10/21 04:01 Elliptocytes Not Reportable 01/10/21 04:01 Acanthocytes (Spur) Not Reportable 01/10/21 04:01 Rouleaux Not Reportable 01/10/21 04:01 Hemoglobin C Crystals Not Reportable 01/10/21 04:01 Schistocytes Not Reportable 01/10/21 04:01 Malaria parasites Not Reportable 01/10/21 04:01 Dylon Bodies Not Reportable 01/10/21 04:01 Hem Pathologist Commnt No 01/10/21 04:01 PT 15.4 Sec. (12.2-14.9) H 01/10/21 04:01 INR 1.17 (0.87-1.13) H 01/10/21 04:01 APTT 40.2 Sec. (24.2-36.6) H 01/10/21 04:01 Fibrinogen 817 mg/dl (211-480) H 01/10/21 04:01 ABG pH 7.484 (7.320-7.450) H 01/13/21 03:14 POC ABG pCO2 34.8 mmHg (32.0-48.0) 01/13/21 03:14 ABG pCO2 37.9 mm Hg 01/05/21 03:50 POC ABG pO2 104.0 mmHg (83-108) 01/13/21 03:14 ABG pO2 136.8 mm Hg (80.0-90.0) H 01/05/21 03:50 POC ABG HCO3 25.6 01/13/21 03:14 ABG HCO3 22.4 mmol/L (20.0-26.0) 01/05/21 03:50 ABG O2 Saturation 98.3 (0-100) 01/13/21 03:14 ABG O2 Content 9.8 (0.0-44) 01/05/21 03:50 POC ABG Base Excess 2.1 01/13/21 03:14 ABG Base Excess -2.3 mmol/L (-2.0-3.0) L 01/05/21 03:50 ABG Hemoglobin 8.4 (12.0-17.5) L 01/13/21 03:14 ABG Oxyhemoglobin 97.0 (94-98) 01/13/21 03:14 ABG Carboxyhemoglobin 1.5 % (0.0-5.0) 01/05/21 03:50 ABG Methemoglobin 0.3 (0.0-1.5) 01/13/21 03:14 ABG Sodium 134.4 mmol/L (136.0-145.0) L 01/13/21 03:14 ABG Potassium 3.1 mmol/L (3.40-4.50) L 01/13/21 03:14 ABG Chloride 99.0 mmol/L (98-107) 01/13/21 03:14 ABG Glucose 117 mg/dL (65-95) H 01/13/21 03:14 Oxyhemoglobin 96.7 % (95.0-99.0) 01/05/21 03:50 Carboxyhemoglobin 1.0 (0.5-1.5) 01/13/21 03:14 FiO2 50 % 01/05/21 03:50 FiO2 % 35.0 01/13/21 03:14 Sodium 145 mmol/L (137-145) D 01/14/21 05:00 Potassium 3.2 mmol/L (3.6-5.0) L 01/14/21 05:00 Chloride 101.3 mmol/L (98-107) 01/14/21 05:00 Carbon Dioxide 28 mmol/L (22-30) 01/14/21 05:00 Anion Gap 19 mmol/L 01/14/21 05:00 BUN 79 mg/dL (9-20) H 01/14/21 05:00 Creatinine 3.1 mg/dL (0.8-1.3) H 01/14/21 05:00 Estimated GFR 21 ml/min 01/14/21 05:00 BUN/Creatinine Ratio 25 % 01/14/21 05:00 Glucose 88 mg/dL (75-100) 01/14/21 05:00 POC Glucose 91 mg/dL (70-105) 01/14/21 05:45 Lactic Acid 1.70 mmol/L (0.7-2.0) 12/20/20 16:20 Calcium 8.5 mg/dL (8.4-10.2) 01/14/21 05:00 Ionized Calcium 3.3 mg/dL (4.8-5.6) L 12/27/20 14:40 Phosphorus 4.90 mg/dL (2.5-4.5) H 01/12/21 10:00 Magnesium 1.80 mg/dL (1.7-2.3) 01/12/21 10:00 Total Bilirubin 0.50 mg/dL (0.1-1.2) 01/10/21 04:01 AST 22 units/L (5-40) 01/10/21 04:01 ALT 19 units/L (7-56) 01/10/21 04:01 Alkaline Phosphatase 117 units/L (35-129) 01/10/21 04:01 Troponin T < 0.010 ng/mL (0.00-0.029) 12/20/20 13:58 Total Protein 6.2 g/dL (6.3-8.2) L 01/10/21 04:01 Albumin 2.1 g/dL (3.9-5) L 01/10/21 04:01 Albumin/Globulin Ratio 0.5 % 01/10/21 04:01 Triglycerides 153 mg/dL (2-149) H 01/12/21 10:00 Arterial Blood Glucose 117 mg/dL (65-95) H 01/13/21 03:14 Arterial Blood Ionized Calcium 4.5 mg/dL (4.6-5.3) L 01/13/21 03:14 Urine Color Yellow (Yellow) 12/23/20 12:15 Urine Turbidity Cloudy (Clear) 12/23/20 12:15 Urine pH 5.0 (5.0-7.0) 12/23/20 12:15 Ur Specific [place] 1.019 (1.003-1.030) 12/23/20 12:15 Urine Protein <15 mg/dl mg/dL (Negative) 12/23/20 12:15 Urine Glucose (UA) Neg mg/dL (Negative) 12/23/20 12:15 Urine Ketones Neg mg/dL (Negative) 12/23/20 12:15 Urine Blood Sm (Negative) 12/23/20 12:15 Urine Nitrite Neg (Negative) 12/23/20 12:15 Urine Bilirubin Neg (Negative) 12/23/20 12:15 Urine Urobilinogen < 2.0 mg/dL (<2.0) 12/23/20 12:15 Ur Leukocyte Esterase Neg (Negative) 12/23/20 12:15 Urine WBC (Auto) 5.0 /HPF (0.0-6.0) 12/23/20 12:15 Urine RBC (Auto) 2.0 /HPF (0.0-6.0) 12/23/20 12:15 U Epithel Cells (Auto) < 1.0 /HPF (0-13.0) 12/20/20 Unknown Urine Bacteria (Auto) 1+ /HPF (Negative) 12/23/20 12:15 Triple Phos Crystals 2+ 12/23/20 12:15 Hyaline Casts 19 /LPF 12/20/20 Unknown Urine Mucus Few /HPF 12/23/20 12:15 Urine Eosinophils None seen (None Seen) 12/23/20 12:15 Urine Creatinine 78.1 mg/dL (0.1-20.0) H 12/23/20 12:15 Urine Sodium 13 mmol/L 12/23/20 12:15 Fraction Sodium Excret 0.2 12/23/20 12:15 Random Vancomycin 7.9 ug/mL (0-40.0) 12/23/20 12:15 Coronavirus (PCR) Negative (Negative) 12/21/20 Unknown Hepatitis A IgM Ab Non-reactive (NonReactive) 12/30/20 14:40 Hep Bs Antigen Non-reactive (Negative) 12/30/20 14:40 Hep B Core IgM Ab Non-reactive (NonReactive) 12/30/20 14:40 Hepatitis C Antibody Non-reactive (NonReactive) 12/30/20 14:40 Blood Type A NEGATIVE 01/06/21 11:00 Antibody Screen Negative 01/06/21 11:00 Crossmatch See Detail 01/06/21 11:00 Haley/IV: Voiding Method Indwelling Catheter Active Medications - Current Medications Current Medications: Generic Name Dose Route Start Last Admin Trade Name Freq PRN Reason Stop Dose Admin Acetaminophen 650 mg 12/21/20 11:51 12/25/20 20:35 Acetaminophen 650 Mg Rect Supp MI 650 mg Q4H PRN Administration TEMP >/=100.4 Lipase/Protease/Amylase 1 each 01/07/21 08:44 Lipase 10,500/Protease 25,000/Amylase 43,750 (Units) Dr Maharaj FEEDTUBE PRN PRN For Clogged Feeding Tube Bisacodyl 10 mg 12/30/20 11:00 01/14/21 09:44 Bisacodyl 10 Mg Rect Supp MI 10 mg QDAY ASCENCION Administration Dextrose 50 ml 12/24/20 10:49 Dextrose 50% In Water (25gm) 50 Ml Syringe IV Q30MIN PRN Hypoglycemia Protocol Famotidine 20 mg 12/26/20 10:00 01/14/21 09:44 Famotidine 20 Mg/2 Ml Inj IV 20 mg DAILY ASCENCION Administration Fentanyl 1 applic 01/11/21 14:00 01/14/21 09:44 Fentanyl 50 Mcg/Hr Patch 72hr TD 1 applic Q3D ASCENCION Administration Heparin Sodium (Porcine) 5,000 unit 01/06/21 14:00 01/14/21 05:47 Heparin 5,000 Unit/1 Ml Vial SUB-Q 5,000 unit Q8HR ASCENCION Administration Hydralazine HCl 10 mg 01/09/21 16:13 01/14/21 05:42 Hydralazine 20 Mg/1 Ml Inj IV 10 mg Q4H PRN Administration Hypertension Hydromorphone HCl 1 mg 01/11/21 14:00 01/14/21 09:44 Hydromorphone 1 Mg/1 Ml Inj IV 1 mg Q4HR ASCENCION Administration Hydromorphone HCl 0.5 mg 01/12/21 10:10 01/13/21 09:08 Hydromorphone 1 Mg/1 Ml Inj IV 0.5 mg Q4H PRN Administration Pain , Severe (7-10) Hydromorphone HCl 0.25 mg 01/12/21 10:11 Hydromorphone 1 Mg/1 Ml Inj IV Q4H PRN Pain, Moderate (4-6) Hydrophilic Ointment 1 applic 12/20/20 21:58 Lip Therapy Vaseline TP Q2HR PRN Dry Lips Propofol 1,000 mg in 100 mls @ 3.606 mls/hr 12/20/20 22:00 01/14/21 08:56 Diprivan 10 Mg/Ml IV 45 mcg/kg/min TITR ASCENCION 32.455 mls/hr Administration Protocol 5 MCG/KG/MIN Dexmedetomidine HCl 400 mcg/ 104 mls @ 7.322 mls/hr 01/04/21 11:00 01/14/21 08:50 Sodium Chloride IV 1 mcg/kg/hr TITRATE ASCENCION 36.608 mls/hr Administration Protocol 0.2 MCG/KG/HR Sodium Chloride 100 mls @ 999 mls/hr 01/10/21 09:08 Nacl 0.9% IV MARILU PRN Hypotension Nicardipine HCl 50 mg/ Sodium 250 mls @ 25 mls/hr 01/11/21 09:00 Chloride IV TITR [facility] Protocol 5 MG/HR Insulin Human Regular 0 units 12/28/20 00:00 01/13/21 18:27 Insulin Regular, Human 100 Units/1 Ml SUB-Q Not Given Q6H [facility] Protocol Metoclopramide HCl 5 mg 01/09/21 18:00 01/14/21 05:47 Metoclopramide 10 Mg/2 Ml Inj IV 5 mg Q6HR ASCENCION Administration Metoprolol Tartrate 5 mg 01/14/21 12:00 Metoprolol Tartrate 5 Mg/5 Ml Inj IV Q6HR [facility] Multi-Ingred Cream/Lotion/Oil/Oint 1 applic 12/20/20 21:58 01/03/21 01:13 Mineral Oil/Petrolatum, White Ophth Oint 3.5 Gm OU 1 applic Q4HR PRN Administration Dry Eye(s) Ondansetron HCl 4 mg 01/11/21 08:09 Ondansetron 4 Mg/2 Ml Inj IV Q8H PRN Nausea And Vomiting Simple Syrup 15 ml 01/07/21 08:44 Simple Syrup 15 Ml FEEDTUBE PRN PRN Hypoglycemia Simple Syrup 30 ml 01/07/21 08:44 Simple Syrup 15 Ml FEEDTUBE PRN PRN Hypoglycemia Sodium Bicarbonate 325 mg 01/07/21 08:44 Sodium Bicarbonate 325 Mg Tab FEEDTUBE PRN PRN For Clogged Feeding Tube Sodium Chloride 10 ml 12/20/20 22:00 01/13/21 10:26 Sodium Chloride 0.9% 10 Ml Flush Syringe IV 10 ml BID ASCENCION Administration Sodium Chloride 10 ml 12/20/20 16:42 Sodium Chloride 0.9% 10 Ml Flush Syringe IV PRN PRN LINE FLUSH Nutrition/Malnutrition Assess - Dietary Evaluation Nutrition/Malnutrition Findings: Nutrition Notes Start: 12/21/20 09:06 Freq: Status: Active Protocol: Document 01/13/21 09:04 CW (Rec: 01/13/21 09:13 CW [id number]) Nutrition Notes Initial or Follow up Reassessment Current Diagnosis Acute Kidney Injury,Coronary Artery Disease,Sepsis, Hypertension,Small Bowel Obstruction,Hyperlipidemia Other Pertinent Diagnosis gangrenous small bowel, s/p small bowel ressection, peritonitis Current Diet TPN at 83.33ml/hr + Nepro 40ml /hr Labs/Tests K 3 BUN 69 Cr 2.9 Ca 8 (AdjCa 9.52) Pertinent Medications Propofol at 28.848 ml/hr ( provides 761.6 kcal) Reglan Height 6 ft Weight 132 kg Ermine Body Weight (kg) 80.90 BMI 39.4 Weight change and time frame weight change noted. Weight Status Obese Subjective/Other Information F/U TPN need and TF. TF running at 40 ml/hr at this time. No reports of intolerance. MD Cherry verbally okayed descion to d/c TPN. Message relayecd to RN to cut rate in half then d/c TPN. No reports of TF equipment intolerance. Percent of energy/protein needs met: 100% energy 79% pro (CPN only) Burn Absent Trauma Absent Current % PO Negligible Minimum of two criteria No #2 Nutrition Diagnosis Increased nutrient needs ( specify in comment below) Diagnosis Progress(for reassessment Continues documentation) #1 Nutrition Diagnosis Inadequate oral intake Diagnosis Progress(for reassessment Continues documentation) Is patient on ventilator? Yes Is Patient Ambulatory and/or Out of Bed No REE-([place]-confined to bed) 2611.680 Kcal/Kg value to use for calculation 13 Approximate Energy Requirements Using 1716 kcal/Kg Calculation Used for Recommendations Kcal/kg Additional Notes Pro needs >1.2g/kg adjBW: > 127g/day Fluid needs per MD. Nutrition Intervention Change Diet Order: d/c CPN Continue TF Nutrition Support: Nepro 40 ml/hr is reached. Flush 175 ml q4h or per MD. Kcal 1,728 Protein (gm) 72 Fluid (mL) 779 Goal #1 TF tolerance Goal #2 Meet at least 75% of kcal and protein needs via TF Follow-Up By: 01/16/21 Additional Comments F/U for TF tolerance
[2021-01-14] MEDS ORDERED: METOPROLOL TARTRATE 5 MG/5 ML INJ IV SCH (12:00)
[2021-01-14] MEDS: INSULIN REGULAR, HUMAN 100 UNITS/1 ML SUB-Q SCH ×2 (13:35→17:42)
--- NOTE | 2021-01-14 16:31 | Progress Note ---
Assessment and Plan POD#26 s/p ex lap and small bowel resection for necrotic bowel secondary to incarcerated ventral hernia left with open abdomen. POD#23 s/p abdominal exploration with segmental small bowel resection. abthera placement POD#20 s/p abdominal exploration, small bowel resection for ischemia, abthera placement POD#17 s/p abdominal exploration with small bowel anastamosis and abthera vac placement POD#13 s/p abdomen closure with mesh Afebrile and stable 1. Renal failure, continue dialysis per nephrology 2. Respiratory insufficiency, wean to extubation per junior programmer 3. Anemia likely due to illness and procedural losses. No clinical signs of identifiable active bleeding. 4. Continue TF as imani 5. Curt drain management as per orders - record output q shift 6. Continue abdominal binder and wound care 7. Rec CT angio Abd if Hb/Hct trends down significantly. Currently stable 8. CM on board for dispo Continue supportive care. Prognosis Guarded. Subjective Date of service: 01/14/21 Narrative: Pt seen and examined. Remains on vent with periods of agitation. Tm 100. Imani TF Objective Vital Signs - 12hr 01/14/21 01/14/21 01/14/21 05:00 05:30 05:42 Temperature Pulse Rate 79 100 H 100 H Pulse Rate [ From Monitor] Respiratory 25 H 25 H Rate Blood Pressure 163/84 198/105 198/105 O2 Sat by Pulse 94 98 Oximetry 01/14/21 01/14/21 01/14/21 06:00 06:31 07:00 Temperature 99.8 F H Pulse Rate 104 H 117 H Pulse Rate [ From Monitor] Respiratory 32 H 46 H Rate Blood Pressure 170/100 221/125 O2 Sat by Pulse 96 93 Oximetry 01/14/21 01/14/21 01/14/21 07:01 07:20 07:30 Temperature Pulse Rate 112 H 96 H 94 H Pulse Rate [ From Monitor] Respiratory 27 H 28 H Rate Blood Pressure 158/94 123/63 128/70 O2 Sat by Pulse 94 94 89 Oximetry 01/14/21 01/14/21 01/14/21 08:00 08:30 09:00 Temperature Pulse Rate 94 H 93 H 87 Pulse Rate [ 84 From Monitor] Respiratory 27 H 25 H 26 H Rate Blood Pressure 130/67 138/72 121/64 O2 Sat by Pulse 93 94 94 Oximetry 01/14/21 01/14/2101/14/21 09:30 10:00 10:30 Temperature Pulse Rate 85 82 78 Pulse Rate [ From Monitor] Respiratory 24 24 24 Rate Blood Pressure 118/63 116/62 124/65 O2 Sat by Pulse 95 95 96 Oximetry 01/14/21 01/14/21 01/14/21 11:00 11:30 12:00 Temperature 99.2 F Pulse Rate 76 82 86 Pulse Rate [ 84 From Monitor] Respiratory 24 24 25 H Rate Blood Pressure 123/65 133/70 135/71 O2 Sat by Pulse 96 96 96 Oximetry 01/14/21 01/14/21 01/14/21 12:30 13:00 13:30 Temperature Pulse Rate 113 H 116 H 107 H Pulse Rate [ From Monitor] Respiratory 36 H 38 H 37 H Rate Blood Pressure 151/80 186/99 189/98 O2 Sat by Pulse 100 98 96 Oximetry 01/14/21 01/14/21 01/14/21 14:00 14:30 15:00 Temperature Pulse Rate 110 H 105 H 105 H Pulse Rate [ From Monitor] Respiratory 24 22 41 H Rate Blood Pressure 184/98 204/106 234/123 O2 Sat by Pulse 95 95 97 Oximetry 01/14/21 01/14/21 01/14/21 15:13 15:24 15:30 Temperature 99.6 F Pulse Rate 106 H 94 H Pulse Rate [ From Monitor] Respiratory 25 H Rate Blood Pressure 204/106 215/108 O2 Sat by Pulse 96 95 Oximetry - General physical appearance Narrative Exam: Gen: Sedated on vent. NAD CV: s1, S2+ Resp: on vent Abd: soft, NT, ND. Incision with nav in place. 2 areas of superficial skin ulceration/wounds. New coversite dressing applied. Curt drain x2 serosang. Abd binder in place. Ext: generalized edema CURT drain R: 10cc/24h L: 10cc/24h - Labs 01/14/21 05:00 01/14/21 05:00 Diabetes panel 01/14/21 Range/Units 05:00 Sodium 145 D (137-145) mmol/L Potassium 3.2 L (3.6-5.0) mmol/L Chloride 101.3 (98-107) mmol/L Carbon Dioxide 28 (22-30) mmol/L BUN 79 H (9-20) mg/dL Creatinine 3.1 H (0.8-1.3) mg/dL Glucose 88 (75-100) mg/dL Calcium 8.5 (8.4-10.2) mg/dL Calcium panel 01/14/21 Range/Units 05:00 Calcium 8.5 (8.4-10.2) mg/dL Pituitary panel 01/14/21 Range/Units 05:00 Sodium 145 D (137-145) mmol/L Potassium 3.2 L (3.6-5.0) mmol/L Chloride 101.3 (98-107) mmol/L Carbon Dioxide 28 (22-30) mmol/L BUN 79 H (9-20) mg/dL Creatinine 3.1 H (0.8-1.3) mg/dL Glucose 88 (75-100) mg/dL Calcium 8.5 (8.4-10.2) mg/dL Adrenal panel 01/14/21 Range/Units 05:00 Sodium 145 D (137-145) mmol/L Potassium 3.2 L (3.6-5.0) mmol/L Chloride 101.3 (98-107) mmol/L Carbon Dioxide 28 (22-30) mmol/L BUN 79 H (9-20) mg/dL Creatinine 3.1 H (0.8-1.3) mg/dL Glucose 88 (75-100) mg/dL Calcium 8.5 (8.4-10.2) mg/dL
--- NOTE | 2021-01-14 17:20 | Progress Note ---
Assessment and Plan Cultures: 12/20/2020 blood culture: No growth 12/20/2020 urine culture: Usual skin giorgio 12/20/2020 tracheal aspirate culture: Mucor A/P: 60-year-old male with obesity, hypertension, tobacco abuse, coronary artery disease, admitted to the hospital on 12/20/2020 with: #Septic shock: Resolved. No fever. Secondary to intra-abdominal source, peritonitis. Patient with necrotic bowel secondary to incarcerated ventral hernia. Status post exploratory laparotomy, extensive adhesiolysis, small bowel resection and peritoneal lavage along with ABThera VAC placement on 12/20/2020, replacement 12/29/2020. Off pressors. Last surgery abdomen closure with mesh 01/02/2021. Repeat CT 01/09/21 with large organized but bland appearing reactive fluid collection in anterior abdomen - seroma v/s hematoma. #JONI: Renally dose antibiotics. On hemodialysis. #Morbid obesity #Mucor in tracheal aspirate is likely colonization. No treatment needed currently. Recs: -continue off abx -Monitor temperature, if > 100.4 would start cefepime renally dosed and rey- culture GReagan Marie MD [facility] ([facility] O: [phone] F: [phone] Subjective Date of service: 01/14/21 Principal diagnosis: SBO and necrosis of large part of small intestine Interval history: Afebrile with low-grade temperatures yesterday, T-max 100.0 white count 12.4 today. Objective - Exam Narrative Exam: Physical Exam: Constitutional: sedated, intubated, on the vent Head, Ears, Nose: Normocephalic, atraumatic. External ears, nose normal Eyes: Conjunctivae/corneas clear. No icterus. No ptosis. Neck: intubated Oral: intubated Cardiovascular: S1, S2 + Respiratory: AE fair bilaterally and equal GI: Woundvac in place Musculoskeletal: No pedal edema, no cyanosis. Skin: No rash or abscess Hem/Lymphatic: No palpable cervical or supraclavicular nodes. No lymphangitis Psych: no agitation Neurological: sedated, intubated, on the vent, exam limited - Constitutional Vitals: Vital Signs Temp Pulse Resp BP Pulse Ox 99.6 F 101 H 24 198/105 98 01/14/21 16:30 01/14/21 17:15 01/14/21 16:30 01/14/21 17:15 01/14/21 16:30 Temperature -Last 24 Hours Temperature 99.6 F Temperature 99.6 F Temperature 99.2 F Temperature 99.8 F Temperature 100.0 F Temperature 99.7 F Temperature 99.7 F Temperature 99.3 F Temperature 99.3 F - Labs CBC & Chem 7: 01/14/21 05:00 01/14/21 05:00 Labs: Abnormal lab results 01/14/21 01/14/21 Range/Units 05:00 05:00 WBC 12.4 H (4.5-11.0) K/mm3 RBC 2.72 L (3.65-5.03) M/mm3 Hgb 7.7 L (11.8-15.2) gm/dl Hct 23.3 L (35.5-45.6) % RDW 17.3 H (13.2-15.2) % Lymph % (Auto) 6.5 L (13.4-35.0) % Eos % (Auto) 7.7 H (0.0-4.3) % Lymph # (Auto) 0.8 L (1.2-5.4) K/mm3 Eos # (Auto) 1.0 H (0.0-0.4) K/mm3 Seg Neutrophils % 82.7 H (40.0-70.0) % Seg Neutrophils # 10.2 H (1.8-7.7) K/mm3 Potassium 3.2 L (3.6-5.0) mmol/L BUN 79 H (9-20) mg/dL Creatinine 3.1 H (0.8-1.3) mg/dL
[2021-01-14] MEDS: METOPROLOL TARTRATE 5 MG/5 ML INJ IV PRN ×2 (17:56→20:45)
--- NOTE | 2021-01-14 18:58 | Progress Note ---
Assessment and Plan Impression * Nonoliguric acute kidney injury secondary to ATN --HD initiated December 30 * Incarcerated hernia with ischemic bowel. Status post bowel resection * Hypernatremia, now with hyponatremia * Fluid overload * Sepsis * Respiratory failure, intubated * Hyperkalemia * Metabolic Acidosis, Gap * Hypoalbuminemia * Anemia Recommendations * HD today - UF goal 2 liters * Continue HD TTS - UF as tolerated * Monitor for evidence of recovery * Maintain haley cathteter for strict I/O * Transfuse for Hb < 7 * TPN per nutrition/primary * Pressors prn to maintain MAP greater than 65 * Avoid nephrotoxins * Monitor fluid status and electrolytes * Primary and consult notes reviewed Subjective Date of service: 01/14/21 Principal diagnosis: SBO and necrosis of large part of small intestine Interval history: No acute events Objective - Vital Signs Vital signs: Vital Signs - 12hr 01/14/21 01/14/21 01/14/21 07:00 07:01 07:20 Temperature 99.8 F H Pulse Rate 112 H 96 H Pulse Rate [ From Monitor] Respiratory 27 H Rate Blood Pressure 158/94 123/63 O2 Sat by Pulse 94 94 Oximetry O2 Sat by Pulse Oximetry [ Anterior Bilateral Lower Lobe] 01/14/21 01/14/21 01/14/21 07:30 08:00 08:30 Temperature Pulse Rate 94 H 94 H 93 H Pulse Rate [ 84 From Monitor] Respiratory 28 H 27 H 25 H Rate Blood Pressure 128/70 130/67 138/72 O2 Sat by Pulse 89 93 94 Oximetry O2 Sat by Pulse Oximetry [ Anterior Bilateral Lower Lobe] 01/14/21 01/14/21 01/14/21 09:00 09:30 10:00 Temperature Pulse Rate 87 85 82 Pulse Rate [ From Monitor] Respiratory 26 H 24 24 Rate Blood Pressure 121/64 118/63 116/62 O2 Sat by Pulse 94 95 95 Oximetry O2 Sat by Pulse Oximetry [ Anterior Bilateral Lower Lobe] 01/14/21 01/14/21 01/14/21 10:30 11:00 11:30 Temperature Pulse Rate 78 76 82 Pulse Rate [ From Monitor] Respiratory 24 24 24 Rate Blood Pressure 124/65 123/65 133/70 O2 Sat by Pulse 96 96 96 Oximetry O2 Sat by Pulse Oximetry [ Anterior Bilateral Lower Lobe] 01/14/21 01/14/21 01/14/21 12:00 12:30 13:00 Temperature 99.2 F Pulse Rate 86 113 H 116 H Pulse Rate [ 84 From Monitor] Respiratory 25 H 36 H 38 H Rate Blood Pressure 135/71 151/80 186/99 O2 Sat by Pulse 96 100 98 Oximetry O2 Sat by Pulse Oximetry [ Anterior Bilateral Lower Lobe] 01/14/21 01/14/21 01/14/21 13:30 14:00 14:30 Temperature Pulse Rate 107 H 110 H 105 H Pulse Rate [ From Monitor] Respiratory 37 H 24 22 Rate Blood Pressure 189/98 184/98 204/106 O2 Sat by Pulse 96 95 95 Oximetry O2 Sat by Pulse Oximetry [ Anterior Bilateral Lower Lobe] 01/14/21 01/14/21 01/14/21 15:00 15:13 15:24 Temperature 99.6 F Pulse Rate 105 H 106 H Pulse Rate [ From Monitor] Respiratory 41 H Rate Blood Pressure 234/123 204/106 O2 Sat by Pulse 97 96 Oximetry O2 Sat by Pulse Oximetry [ Anterior Bilateral Lower Lobe] 01/14/21 01/14/21 01/14/21 15:30 16:00 16:30 Temperature 99.6 F Pulse Rate 94 H 99 H 93 H Pulse Rate [ 84 From Monitor] Respiratory 25 H 35 H 25 H Rate Blood Pressure 215/108 198/103 180/94 O2 Sat by Pulse 95 97 97 Oximetry O2 Sat by Pulse 98 Oximetry [ Anterior Bilateral Lower Lobe] 01/14/21 01/14/21 01/14/21 16:45 17:00 17:15 Temperature Pulse Rate 100 H 98 H 101 H Pulse Rate [ From Monitor] Respiratory 29 H Rate Blood Pressure 202/103 194/115 198/105 O2 Sat by Pulse 98 Oximetry O2 Sat by Pulse Oximetry [ Anterior Bilateral Lower Lobe] 01/14/21 01/14/21 01/14/21 17:30 17:45 17:54 Temperature 98.5 F Pulse Rate 97 H 95 H Pulse Rate [ From Monitor] Respiratory 33 H Rate Blood Pressure 172/94 192/87 O2 Sat by Pulse 97 Oximetry O2 Sat by Pulse Oximetry [ Anterior Bilateral Lower Lobe] 01/14/21 01/14/21 01/14/21 17:56 18:00 18:15 Temperature Pulse Rate 98 H 82 85 Pulse Rate [ From Monitor] Respiratory 25 H Rate Blood Pressure 192/87 198/105 153/78 O2 Sat by Pulse 96 Oximetry O2 Sat by Pulse Oximetry [ Anterior Bilateral Lower Lobe] 01/14/21 01/14/21 18:30 18:45 Temperature Pulse Rate 90 91 H Pulse Rate [ From Monitor] Respiratory 30 H Rate Blood Pressure 149/80 149/82 O2 Sat by Pulse 98 Oximetry O2 Sat by Pulse Oximetry [ Anterior Bilateral Lower Lobe] - General Appearance General appearance: well-developed, well-nourished EENT: ATNC, other (ETT in place) Cardiology: regular, S1S2 Gastrointestinal: obese Integumentary: no rash, warm and dry Musculoskeletal: other (1-2+ edema) - Lab 01/14/21 05:00 01/14/21 05:00 Most recent lab results ABG pH 7.484 (7.320-7.450) H 01/13/21 03:14 ABG pCO2 37.9 mm Hg 01/05/21 03:50 ABG pO2 136.8 mm Hg (80.0-90.0) H 01/05/21 03:50 ABG HCO3 22.4 mmol/L (20.0-26.0) 01/05/21 03:50 ABG O2 Saturation 98.3 (0-100) 01/13/21 03:14 Calcium 8.5 mg/dL (8.4-10.2) 01/14/21 05:00 Phosphorus 4.90 mg/dL (2.5-4.5) H 01/12/21 10:00 Magnesium 1.80 mg/dL (1.7-2.3) 01/12/21 10:00 Urine Creatinine 78.1 mg/dL (0.1-20.0) H 12/23/20 12:15 Urine Sodium 13 mmol/L 12/23/20 12:15 Medications & Allergies - Medications Allergies/Adverse Reactions: Allergies Iodinated Contrast Media Adverse Reaction (Verified 09/04/18 14:20) Unknown Home Medications: Home Medications Medication Instructions Recorded Confirmed Last Taken Type Aspirin 81 mg PO DAILY #30 tab.chew 09/08/18 01/04/21 03/31/20 09:28 Rx AtorvaSTATin [Lipitor] 80 mg PO QHS tablet 05/08/19 01/04/21 03/28/20 Rx Albuterol Sulfate [Proventil Hfa] 13.4 gm IH Q6H #1 hfa.aer.ad 04/01/20 01/04/21 Unknown Rx Clopidogrel [Plavix] 75 mg PO DAILY #30 tablet 04/01/20 01/04/21 Unknown Rx Gabapentin 300 mg PO BID@0700,1800 30 Days 04/01/20 01/04/21 Unknown Rx capsule Gabapentin 600 mg PO QHS 30 Days capsule 04/01/20 01/04/21 Unknown Rx Metoprolol [Lopressor TAB] 25 mg PO BID #60 tablet 04/01/20 01/04/21 Unknown Rx [place]-3/Dha/Epa/Fish Oil [[place] 3 1 each PO BID #60 capsule 04/01/20 01/04/21 Unknown Rx 500 Softgel] Tiotropium [place] [Spiriva] 2 puff IH DAILY #30 cap.w.dev 04/01/20 01/04/21 Unknown Rx Ubidecarenone [Co Q-10] 10 mg PO BID #60 tab 04/01/20 01/04/21 03/29/20 Rx cilostazoL [Pletal] 50 mg PO BID 30 Days tablet 04/01/20 01/04/21 Unknown Rx oxyCODONE /ACETAMINOPHEN [Percocet 2 tab PO Q6H PRN tablet 04/01/20 01/04/21 Unknown Rx 5/325 mg] Phosphorus #1 [K-Phos Neutral] 250 mg PO QID 2 Days #8 tablet 09/14/20 01/04/21 Unknown Rx Active Medications: Generic Name Dose Route Start Last Admin Trade Name Freq PRN Reason Stop Dose Admin Acetaminophen 650 mg 12/21/20 11:51 12/25/20 20:35 Acetaminophen 650 Mg Rect Supp PA 650 mg Q4H PRN Administration TEMP >/=100.4 Lipase/Protease/Amylase 1 each 01/07/21 08:44 Lipase 10,500/Protease 25,000/Amylase 43,750 (Units) Dr Maharaj FEEDTUBE PRN PRN For Clogged Feeding Tube Bisacodyl 10 mg 12/30/20 11:00 01/14/21 09:44 Bisacodyl 10 Mg Rect Supp PA 10 mg QDAY ASCENCION Administration Dextrose 50 ml 12/24/20 10:49 Dextrose 50% In Water (25gm) 50 Ml Syringe IV Q30MIN PRN Hypoglycemia Protocol Famotidine 20 mg 12/26/20 10:00 01/14/21 09:44 Famotidine 20 Mg/2 Ml Inj IV 20 mg DAILY ASCENCION Administration Fentanyl 1 applic 01/11/21 14:00 01/14/21 09:44 Fentanyl 50 Mcg/Hr Patch 72hr TD 1 applic Q3D ASCENCION Administration Heparin Sodium (Porcine) 5,000 unit 01/06/21 14:00 01/14/21 13:48 Heparin 5,000 Unit/1 Ml Vial SUB-Q 5,000 unit Q8HR ASCENCION Administration Hydromorphone HCl 1 mg 01/11/21 14:00 01/14/21 17:10 Hydromorphone 1 Mg/1 Ml Inj IV 1 mg Q4HR ASCENCION Administration Hydromorphone HCl 0.5 mg 01/12/21 10:10 01/13/21 09:08 Hydromorphone 1 Mg/1 Ml Inj IV 0.5 mg Q4H PRN Administration Pain , Severe (7-10) Hydromorphone HCl 0.25 mg 01/12/21 10:11 Hydromorphone 1 Mg/1 Ml Inj IV Q4H PRN Pain, Moderate (4-6) Hydrophilic Ointment 1 applic 12/20/20 21:58 Lip Therapy Vaseline TP Q2HR PRN Dry Lips Propofol 1,000 mg in 100 mls @ 3.606 mls/hr 12/20/20 22:00 01/14/21 17:57 Diprivan 10 Mg/Ml IV 45 mcg/kg/min TITR ASCENCION 32.455 mls/hr Administration Protocol 5 MCG/KG/MIN Dexmedetomidine HCl 400 mcg/ 104 mls @ 7.322 mls/hr 01/04/21 11:00 01/14/21 17:10 Sodium Chloride IV 1 mcg/kg/hr TITRATE ASCENCION 36.608 mls/hr Administration Protocol 0.2 MCG/KG/HR Sodium Chloride 100 mls @ 999 mls/hr 01/10/21 09:08 Nacl 0.9% IV MARILU PRN Hypotension Nicardipine HCl 50 mg/ Sodium 250 mls @ 25 mls/hr 01/11/21 09:00 Chloride IV TITR ASCENCION Protocol 5 MG/HR Insulin Human Regular 0 units 12/28/20 00:00 01/14/21 17:42 Insulin Regular, Human 100 Units/1 Ml SUB-Q Not Given Q6H ASCENCION Protocol Metoclopramide HCl 5 mg 01/09/21 18:00 01/14/21 17:57 Metoclopramide 10 Mg/2 Ml Inj IV 5 mg Q6HR ASCENCION Administration Metoprolol Tartrate 5 mg 01/14/21 13:37 01/14/21 17:56 Metoprolol Tartrate 5 Mg/5 Ml Inj IV 5 mg Q6H PRN Administration Blood Pressure Multi-Ingred Cream/Lotion/Oil/Oint 1 applic 12/20/20 21:58 01/03/21 01:13 Mineral Oil/Petrolatum, White Ophth Oint 3.5 Gm OU 1 applic Q4HR PRN Administration Dry Eye(s) Ondansetron HCl 4 mg 01/11/21 08:09 Ondansetron 4 Mg/2 Ml Inj IV Q8H PRN Nausea And Vomiting Simple Syrup 15 ml 01/07/21 08:44 Simple Syrup 15 Ml FEEDTUBE PRN PRN Hypoglycemia Simple Syrup 30 ml 01/07/21 08:44 Simple Syrup 15 Ml FEEDTUBE PRN PRN Hypoglycemia Sodium Bicarbonate 325 mg 01/07/21 08:44 Sodium Bicarbonate 325 Mg Tab FEEDTUBE PRN PRN For Clogged Feeding Tube Sodium Chloride 10 ml 12/20/20 22:00 01/14/21 15:22 Sodium Chloride 0.9% 10 Ml Flush Syringe IV 10 ml BID ASCENCION Administration Sodium Chloride 10 ml 12/20/20 16:42 Sodium Chloride 0.9% 10 Ml Flush Syringe IV PRN PRN LINE FLUSH
[2021-01-14] MEDS: HYDROmorphone 1 MG/1 ML INJ IV PRN (20:46)
[2021-01-15] MEDS: METOCLOPRAMIDE 10 MG/2 ML INJ IV SCH ×4 (02:41→17:57)
[2021-01-15] MEDS: HYDROmorphone 1 MG/1 ML INJ IV SCH ×6 (02:42→21:34)
[2021-01-15] MEDS: INSULIN REGULAR, HUMAN 100 UNITS/1 ML SUB-Q SCH ×5 (04:16→18:00)
[2021-01-15] MEDS: HYDROmorphone 1 MG/1 ML INJ IV PRN ×3 (04:20→15:40)
[2021-01-15] MEDS: HEPARIN 5,000 UNIT/1 ML VIAL SUB-Q SCH ×3 (06:01→21:33)
[2021-01-15] MEDS: dexmedeTOMIDine 1,000 MCG in SODIUM CHLORIDE 0.9% 250ML 250 ML IV SCH ×3 (07:00→22:12)
--- NOTE | 2021-01-15 09:31 | Progress Note ---
Assessment and Plan - Patient Problems (1) Acute respiratory failure Current Visit: Yes Status: Acute (2) Chronic pain disorder Current Visit: Yes Status: Acute (3) Lactic acidosis Current Visit: Yes Status: Acute (4) Obesity (BMI 30-39.9) Current Visit: Yes Status: Acute (5) Peritonitis (acute) generalized Current Visit: Yes Status: Acute (6) Small bowel obstruction Current Visit: Yes Status: Acute Subjective Principal diagnosis: SBO and necrosis of large part of small intestine Interval history: sedation being weaned on Precedex at 0.8 and diprivan 20 Fentanyl patch ordered Objective Vital Signs - 12hr 01/14/21 01/14/21 01/14/21 22:00 22:30 23:00 Temperature Pulse Rate 87 80 79 Pulse Rate [ From Monitor] Respiratory 26 H 23 24 Rate Blood Pressure 208/95 180/88 177/87 O2 Sat by Pulse 96 90 93 Oximetry 01/14/21 01/14/21 01/14/21 23:04 23:26 23:30 Temperature Pulse Rate 80 80 79 Pulse Rate [ From Monitor] Respiratory 23 24 Rate Blood Pressure 200/97 177/87 179/89 O2 Sat by Pulse 94 95 91 Oximetry 01/14/21 01/14/21 01/15/21 23:54 23:57 00:00 Temperature 99.5 F Pulse Rate 79 83 Pulse Rate [ 79 From Monitor] Respiratory 18 24 Rate Blood Pressure 192/95 209/101 O2 Sat by Pulse 90 93 Oximetry 01/15/21 01/15/21 01/15/21 00:30 01:00 01:30 Temperature Pulse Rate 84 77 88 Pulse Rate [ From Monitor] Respiratory 26 H 24 31 H Rate Blood Pressure 195/98 186/107 174/92 O2 Sat by Pulse 97 93 96 Oximetry 01/15/21 01/15/21 01/15/21 02:00 02:30 03:00 Temperature 99.2 F Pulse Rate 98 H 100 H 101 H Pulse Rate [ From Monitor] Respiratory 46 H 32 H 25 H Rate Blood Pressure 159/84 159/84 135/66 O2 Sat by Pulse 93 94 90 Oximetry 01/15/21 01/15/21 01/15/21 03:30 03:37 04:00 Temperature 99.2 F Pulse Rate 103 H 108 H 96 H Pulse Rate [ 103 H From Monitor] Respiratory 30 H 35 H Rate Blood Pressure 158/88 158/88 144/74 O2 Sat by Pulse 94 95 98 Oximetry 01/15/21 01/15/21 01/15/21 04:30 05:00 05:30 Temperature Pulse Rate 102 H 94 H 79 Pulse Rate [ From Monitor] Respiratory 26 H 24 24 Rate Blood Pressure 133/73 120/65 103/54 O2 Sat by Pulse 97 91 92 Oximetry 01/15/21 01/15/21 01/15/21 06:00 06:30 07:18 Temperature 99.5 F Pulse Rate 78 79 Pulse Rate [ From Monitor] Respiratory 24 24 Rate Blood Pressure 104/53 104/56 O2 Sat by Pulse 93 96 Oximetry 01/15/21 07:35 Temperature Pulse Rate 93 H Pulse Rate [ From Monitor] Respiratory Rate Blood Pressure 136/72 O2 Sat by Pulse 98 Oximetry Constitutional: comatose (secondary to sedation.), other (critically ill on ventilator obese awake) Eyes: non-icteric ENT: oropharynx moist, other (ett in place ngt inplace) Neck: supple Effort: normal Ascultation: Bilateral: other (coarse BS bilaterally) Cardiovascular: other (tachy, RR; no mrg) Gastrointestinal: other (abdomen open) Integumentary: normal Extremities: no cyanosis, no edema, pink and warm Neurologic: other (sedated) CBC and BMP: 01/14/21 05:00 01/14/21 05:00 ABG, PT/INR, D-dimer: ABG ABG pH 7.484 (7.320-7.450) H 01/13/21 03:14 POC ABG pCO2 34.8 mmHg (32.0-48.0) 01/13/21 03:14 ABG pCO2 37.9 mm Hg 01/05/21 03:50 POC ABG pO2 104.0 mmHg (83-108) 01/13/21 03:14 ABG pO2 136.8 mm Hg (80.0-90.0) H 01/05/21 03:50 POC ABG HCO3 25.6 01/13/21 03:14 ABG O2 Saturation 98.3 (0-100) 01/13/21 03:14 PT/INR, D-dimer PT 15.4 Sec. (12.2-14.9) H 01/10/21 04:01 INR 1.17 (0.87-1.13) H 01/10/21 04:01 Abnormal lab findings: Abnormal Labs 12/20/20 12/20/20 12/20/20 13:58 13:58 13:58 WBC 41.1 H* RBC 5.59 H Hgb 16.2 H Hct 47.7 H MCV MCHC RDW 15.5 H Plt Count 486 H Lymph % (Auto) Eos % (Auto) Lymph # (Auto) Eos # (Auto) Seg Neutrophils % Seg Neuts % (Manual) Lymphocytes % (Manual) Seg Neutrophils # Seg Neutrophils # Man Lymphocytes # (Manual) Monocytes # (Manual) PT INR APTT Fibrinogen ABG pH POC ABG pCO2 POC ABG pO2 ABG pO2 ABG Base Excess ABG Hemoglobin ABG Oxyhemoglobin ABG Sodium ABG Potassium ABG Chloride ABG Glucose Carboxyhemoglobin Sodium 130 L Potassium Chloride 80.7 L Carbon Dioxide BUN 37 H Creatinine Glucose 101 H POC Glucose Lactic Acid 3.20 H* Calcium Ionized Calcium Phosphorus Magnesium AST Alkaline Phosphatase 142 H Total Protein 6.2 L Albumin 2.2 L Triglycerides Arterial Blood Glucose Arterial Blood Ionized Calcium Urine Creatinine Crossmatch 12/20/20 12/20/20 12/20/20 13:58 20:35 21:30 WBC RBC Hgb Hct MCV MCHC RDW Plt Count Lymph % (Auto) Eos % (Auto) Lymph # (Auto) Eos # (Auto) Seg Neutrophils % Seg Neuts % (Manual) Lymphocytes % (Manual) Seg Neutrophils # Seg Neutrophils # Man Lymphocytes # (Manual) Monocytes # (Manual) PT INR APTT 49.4 H Fibrinogen ABG pH 7.313 L POC ABG pCO2 POC ABG pO2 ABG pO2 104.4 H ABG Base Excess ABG Hemoglobin ABG Oxyhemoglobin ABG Sodium ABG Potassium ABG Chloride ABG Glucose Carboxyhemoglobin Sodium Potassium Chloride Carbon Dioxide BUN Creatinine Glucose POC Glucose 122 H Lactic Acid Calcium Ionized Calcium Phosphorus Magnesium AST Alkaline Phosphatase Total Protein Albumin Triglycerides Arterial Blood Glucose Arterial Blood Ionized Calcium Urine Creatinine Crossmatch 12/21/20 12/21/20 12/21/20 03:06 08:14 08:14 WBC 23.9 H RBC Hgb Hct MCV MCHC RDW 15.7 H Plt Count Lymph % (Auto) Eos % (Auto) Lymph # (Auto) Eos # (Auto) Seg Neutrophils % Seg Neuts % (Manual) 91.0 H Lymphocytes % (Manual) 3.0 L Seg Neutrophils # Seg Neutrophils # Man 21.7 H Lymphocytes # (Manual) 0.7 L Monocytes # (Manual) 1.4 H PT INR APTT Fibrinogen ABG pH 7.464 H POC ABG pCO2 POC ABG pO2 202.9 H ABG pO2 ABG Base Excess ABG Hemoglobin ABG Oxyhemoglobin ABG Sodium 133.7 L ABG Potassium ABG Chloride ABG Glucose 122 H Carboxyhemoglobin Sodium Potassium Chloride Carbon Dioxide BUN 46 H Creatinine Glucose 103 H POC Glucose Lactic Acid Calcium 6.6 L D Ionized Calcium Phosphorus Magnesium AST Alkaline Phosphatase Total Protein 5.4 L Albumin 2.3 L Triglycerides Arterial Blood Glucose 122 H Arterial Blood Ionized Calcium 3.5 L Urine Creatinine Crossmatch 12/21/20 12/21/20 12/22/20 17:18 21:28 04:45 WBC 22.9 H RBC Hgb Hct MCV MCHC RDW 15.7 H Plt Count Lymph % (Auto) Eos % (Auto) Lymph # (Auto) Eos # (Auto) Seg Neutrophils % Seg Neuts % (Manual) Lymphocytes % (Manual) Seg Neutrophils # Seg Neutrophils # Man Lymphocytes # (Manual) Monocytes # (Manual) PT INR APTT Fibrinogen ABG pH POC ABG pCO2 POC ABG pO2 ABG pO2 ABG Base Excess ABG Hemoglobin ABG Oxyhemoglobin ABG Sodium ABG Potassium ABG Chloride ABG Glucose Carboxyhemoglobin Sodium Potassium Chloride Carbon Dioxide BUN Creatinine Glucose POC Glucose 108 H Lactic Acid Calcium Ionized Calcium 4.1 L Phosphorus Magnesium AST Alkaline Phosphatase Total Protein Albumin Triglycerides Arterial Blood Glucose Arterial Blood Ionized Calcium Urine Creatinine Crossmatch 12/22/20 12/22/20 12/22/20 04:45 05:00 11:38 WBC RBC Hgb Hct MCV MCHC RDW Plt Count Lymph % (Auto) Eos % (Auto) Lymph # (Auto) Eos # (Auto) Seg Neutrophils % Seg Neuts % (Manual) Lymphocytes % (Manual) Seg Neutrophils # Seg Neutrophils # Man Lymphocytes # (Manual) Monocytes # (Manual) PT INR APTT Fibrinogen ABG pH 7.462 H POC ABG pCO2 POC ABG pO2 ABG pO2 ABG Base Excess ABG Hemoglobin ABG Oxyhemoglobin ABG Sodium ABG Potassium ABG Chloride ABG Glucose 118 H Carboxyhemoglobin Sodium 146 H Potassium Chloride Carbon Dioxide BUN 45 H Creatinine Glucose 116 H POC Glucose 115 H Lactic Acid Calcium 6.9 L Ionized Calcium Phosphorus Magnesium AST Alkaline Phosphatase Total Protein Albumin Triglycerides Arterial Blood Glucose 118 H Arterial Blood Ionized Calcium 3.8 L Urine Creatinine Crossmatch 12/22/20 12/23/20 12/23/20 23:26 04:43 04:45 WBC 22.2 H RBC Hgb Hct MCV MCHC RDW 16.1 H Plt Count Lymph % (Auto) Eos % (Auto) Lymph # (Auto) Eos # (Auto) Seg Neutrophils % Seg Neuts % (Manual) Lymphocytes % (Manual) Seg Neutrophils # Seg Neutrophils # Man Lymphocytes # (Manual) Monocytes # (Manual) PT INR APTT Fibrinogen ABG pH POC ABG pCO2 POC ABG pO2 ABG pO2 ABG Base Excess ABG Hemoglobin ABG Oxyhemoglobin ABG Sodium 147.4 H ABG Potassium ABG Chloride 112.0 H ABG Glucose 130 H Carboxyhemoglobin 0.4 L Sodium Potassium Chloride Carbon Dioxide BUN Creatinine Glucose POC Glucose 110 H Lactic Acid Calcium Ionized Calcium Phosphorus Magnesium AST Alkaline Phosphatase Total Protein Albumin Triglycerides Arterial Blood Glucose 130 H Arterial Blood Ionized Calcium 3.8 L Urine Creatinine Crossmatch 12/23/20 12/23/20 12/23/20 04:45 05:17 11:22 WBC RBC Hgb Hct MCV MCHC RDW Plt Count Lymph % (Auto) Eos % (Auto) Lymph # (Auto) Eos # (Auto) Seg Neutrophils % Seg Neuts % (Manual) Lymphocytes % (Manual) Seg Neutrophils # Seg Neutrophils # Man Lymphocytes # (Manual) Monocytes # (Manual) PT INR APTT Fibrinogen ABG pH POC ABG pCO2 POC ABG pO2 ABG pO2 ABG Base Excess ABG Hemoglobin ABG Oxyhemoglobin ABG Sodium ABG Potassium ABG Chloride ABG Glucose Carboxyhemoglobin Sodium 154 H D Potassium Chloride 110.9 H Carbon Dioxide BUN 54 H Creatinine 1.8 H Glucose 115 H POC Glucose 116 H 130 H Lactic Acid Calcium 7.0 L Ionized Calcium Phosphorus Magnesium AST Alkaline Phosphatase Total Protein Albumin Triglycerides Arterial Blood Glucose Arterial Blood Ionized Calcium Urine Creatinine Crossmatch 12/23/20 12/23/20 12/23/20 12:15 12:15 23:15 WBC RBC Hgb Hct MCV MCHC RDW Plt Count Lymph % (Auto) Eos % (Auto) Lymph # (Auto) Eos # (Auto) Seg Neutrophils % Seg Neuts % (Manual) Lymphocytes % (Manual) Seg Neutrophils # Seg Neutrophils # Man Lymphocytes # (Manual) Monocytes # (Manual) PT INR APTT Fibrinogen ABG pH POC ABG pCO2 POC ABG pO2 ABG pO2 ABG Base Excess ABG Hemoglobin ABG Oxyhemoglobin ABG Sodium ABG Potassium ABG Chloride ABG Glucose Carboxyhemoglobin Sodium 154 H Potassium Chloride Carbon Dioxide BUN Creatinine 1.5 H Glucose POC Glucose 132 H Lactic Acid Calcium Ionized Calcium Phosphorus Magnesium AST Alkaline Phosphatase Total Protein Albumin Triglycerides Arterial Blood Glucose Arterial Blood Ionized Calcium Urine Creatinine 78.1 H Crossmatch 12/24/20 12/24/20 12/24/20 04:19 04:30 04:30 WBC 18.3 H RBC Hgb Hct MCV MCHC RDW 16.5 H Plt Count Lymph % (Auto) Eos % (Auto) Lymph # (Auto) Eos # (Auto) Seg Neutrophils % Seg Neuts % (Manual) Lymphocytes % (Manual) Seg Neutrophils # Seg Neutrophils # Man Lymphocytes # (Manual) Monocytes # (Manual) PT INR APTT Fibrinogen ABG pH POC ABG pCO2 POC ABG pO2 ABG pO2 ABG Base Excess ABG Hemoglobin ABG Oxyhemoglobin ABG Sodium 149.7 H ABG Potassium ABG Chloride 116.0 H ABG Glucose 180 H Carboxyhemoglobin Sodium 155 H Potassium Chloride 116.1 H Carbon Dioxide BUN 52 H Creatinine 1.5 H Glucose 175 H POC Glucose Lactic Acid Calcium 6.8 L Ionized Calcium Phosphorus Magnesium 3.00 H AST Alkaline Phosphatase Total Protein 5.7 L Albumin 1.8 L Triglycerides Arterial Blood Glucose 180 H Arterial Blood Ionized Calcium 3.7 L Urine Creatinine Crossmatch 12/24/20 12/24/20 12/24/20 05:24 11:21 18:05 WBC RBC Hgb Hct MCV MCHC RDW Plt Count Lymph % (Auto) Eos % (Auto) Lymph # (Auto) Eos # (Auto) Seg Neutrophils % Seg Neuts % (Manual) Lymphocytes % (Manual) Seg Neutrophils # Seg Neutrophils # Man Lymphocytes # (Manual) Monocytes # (Manual) PT INR APTT Fibrinogen ABG pH POC ABG pCO2 POC ABG pO2 ABG pO2 ABG Base Excess ABG Hemoglobin ABG Oxyhemoglobin ABG Sodium ABG Potassium ABG Chloride ABG Glucose Carboxyhemoglobin Sodium Potassium Chloride Carbon Dioxide BUN Creatinine Glucose POC Glucose 153 H 154 H 133 H Lactic Acid Calcium Ionized Calcium Phosphorus Magnesium AST Alkaline Phosphatase Total Protein Albumin Triglycerides Arterial Blood Glucose Arterial Blood Ionized Calcium Urine Creatinine Crossmatch 12/25/20 12/25/20 12/25/20 04:00 07:00 07:00 WBC 17.6 H RBC Hgb Hct MCV MCHC 31 L RDW 16.0 H Plt Count Lymph % (Auto) Eos % (Auto) Lymph # (Auto) Eos # (Auto) Seg Neutrophils % Seg Neuts % (Manual) Lymphocytes % (Manual) Seg Neutrophils # Seg Neutrophils # Man Lymphocytes # (Manual) Monocytes # (Manual) PT INR APTT Fibrinogen ABG pH POC ABG pCO2 POC ABG pO2 ABG pO2 ABG Base Excess ABG Hemoglobin ABG Oxyhemoglobin ABG Sodium 152.5 H ABG Potassium ABG Chloride 119.0 H ABG Glucose 136 H Carboxyhemoglobin Sodium Potassium Chloride Carbon Dioxide BUN Creatinine Glucose POC Glucose Lactic Acid Calcium Ionized Calcium Phosphorus Magnesium 2.70 H AST Alkaline Phosphatase Total Protein Albumin Triglycerides Arterial Blood Glucose 136 H Arterial Blood Ionized Calcium 3.7 L Urine Creatinine Crossmatch 12/25/20 12/25/20 12/25/20 07:00 11:24 16:32 WBC RBC Hgb Hct MCV MCHC RDW Plt Count Lymph % (Auto) Eos % (Auto) Lymph # (Auto) Eos # (Auto) Seg Neutrophils % Seg Neuts % (Manual) Lymphocytes % (Manual) Seg Neutrophils # Seg Neutrophils # Man Lymphocytes # (Manual) Monocytes # (Manual) PT INR APTT Fibrinogen ABG pH POC ABG pCO2 POC ABG pO2 ABG pO2 ABG Base Excess ABG Hemoglobin ABG Oxyhemoglobin ABG Sodium ABG Potassium ABG Chloride ABG Glucose Carboxyhemoglobin Sodium 156 H Potassium Chloride 118.0 H Carbon Dioxide BUN 44 H Creatinine 1.7 H Glucose 126 H POC Glucose 110 H 126 H Lactic Acid Calcium 6.9 L Ionized Calcium Phosphorus Magnesium AST Alkaline Phosphatase Total Protein Albumin Triglycerides Arterial Blood Glucose Arterial Blood Ionized Calcium Urine Creatinine Crossmatch 12/25/20 12/25/20 12/26/20 18:18 23:23 03:30 WBC RBC Hgb Hct MCV MCHC RDW Plt Count Lymph % (Auto) Eos % (Auto) Lymph # (Auto) Eos # (Auto) Seg Neutrophils % Seg Neuts % (Manual) Lymphocytes % (Manual) Seg Neutrophils # Seg Neutrophils # Man Lymphocytes # (Manual) Monocytes # (Manual) PT INR APTT Fibrinogen ABG pH POC ABG pCO2 POC ABG pO2 ABG pO2 ABG Base Excess ABG Hemoglobin 11.8 L ABG Oxyhemoglobin ABG Sodium ABG Potassium 4.7 H ABG Chloride 114.0 H ABG Glucose 132 H Carboxyhemoglobin Sodium 151 H Potassium Chloride 114.3 H Carbon Dioxide BUN 51 H Creatinine 2.6 H D Glucose 122 H POC Glucose 115 H Lactic Acid Calcium 6.4 L Ionized Calcium Phosphorus Magnesium AST Alkaline Phosphatase Total Protein Albumin Triglycerides Arterial Blood Glucose 132 H Arterial Blood Ionized Calcium 3.6 L Urine Creatinine Crossmatch 12/26/20 12/26/20 12/26/20 04:55 06:01 06:01 WBC 21.6 H RBC Hgb Hct MCV MCHC 31 L RDW 16.5 H Plt Count 136 L Lymph % (Auto) Eos % (Auto) Lymph # (Auto) Eos # (Auto) Seg Neutrophils % Seg Neuts % (Manual) Lymphocytes % (Manual) Seg Neutrophils # Seg Neutrophils # Man Lymphocytes # (Manual) Monocytes # (Manual) PT INR APTT Fibrinogen ABG pH POC ABG pCO2 POC ABG pO2 ABG pO2 ABG Base Excess ABG Hemoglobin ABG Oxyhemoglobin ABG Sodium ABG Potassium ABG Chloride ABG Glucose Carboxyhemoglobin Sodium 173 H* D Potassium 6.1 H* D Chloride 137.0 H Carbon Dioxide BUN 73 H Creatinine 3.8 H Glucose 125 H POC Glucose 112 H Lactic Acid Calcium 6.2 L Ionized Calcium Phosphorus 5.70 H D Magnesium 2.90 H AST Alkaline Phosphatase Total Protein Albumin Triglycerides Arterial Blood Glucose Arterial Blood Ionized Calcium Urine Creatinine Crossmatch 12/26/20 12/26/20 12/26/20 08:33 11:19 22:00 WBC RBC Hgb Hct MCV MCHC RDW Plt Count Lymph % (Auto) Eos % (Auto) Lymph # (Auto) Eos # (Auto) Seg Neutrophils % Seg Neuts % (Manual) Lymphocytes % (Manual) Seg Neutrophils # Seg Neutrophils # Man Lymphocytes # (Manual) Monocytes # (Manual) PT INR APTT Fibrinogen ABG pH POC ABG pCO2 POC ABG pO2 ABG pO2 ABG Base Excess ABG Hemoglobin ABG Oxyhemoglobin ABG Sodium ABG Potassium ABG Chloride ABG Glucose Carboxyhemoglobin Sodium 147 H D Potassium 5.8 H D Chloride 108.8 H Carbon Dioxide 21 L BUN 68 H 68 H Creatinine 3.8 H 4.1 H Glucose 144 H 154 H POC Glucose 144 H Lactic Acid Calcium 6.5 L 5.8 L* Ionized Calcium Phosphorus Magnesium AST 215 H Alkaline Phosphatase Total Protein 4.7 L Albumin 1.5 L Triglycerides Arterial Blood Glucose Arterial Blood Ionized Calcium Urine Creatinine Crossmatch 12/26/20 12/26/20 12/27/20 23:13 Unknown 00:25 WBC RBC Hgb 11.1 L Hct MCV MCHC RDW Plt Count Lymph % (Auto) Eos % (Auto) Lymph # (Auto) Eos # (Auto) Seg Neutrophils % Seg Neuts % (Manual) Lymphocytes % (Manual) Seg Neutrophils # Seg Neutrophils # Man Lymphocytes # (Manual) Monocytes # (Manual) PT INR APTT Fibrinogen ABG pH POC ABG pCO2 POC ABG pO2 ABG pO2 ABG Base Excess ABG Hemoglobin ABG Oxyhemoglobin ABG Sodium ABG Potassium ABG Chloride ABG Glucose Carboxyhemoglobin Sodium Potassium Chloride Carbon Dioxide BUN Creatinine Glucose POC Glucose 163 H Lactic Acid Calcium Ionized Calcium Phosphorus 5.60 H Magnesium AST Alkaline Phosphatase Total Protein Albumin Triglycerides Arterial Blood Glucose Arterial Blood Ionized Calcium Urine Creatinine Crossmatch 12/27/20 12/27/20 12/27/20 02:57 04:15 04:15 WBC 28.5 H RBC Hgb 11.2 L Hct MCV MCHC 31 L RDW 16.5 H Plt Count 130 L Lymph % (Auto) Eos % (Auto) Lymph # (Auto) Eos # (Auto) Seg Neutrophils % Seg Neuts % (Manual) Lymphocytes % (Manual) Seg Neutrophils # Seg Neutrophils # Man Lymphocytes # (Manual) Monocytes # (Manual) PT INR APTT Fibrinogen ABG pH 7.238 L POC ABG pCO2 POC ABG pO2 139.1 H ABG pO2 ABG Base Excess ABG Hemoglobin 11.2 L ABG Oxyhemoglobin ABG Sodium 133.8 L ABG Potassium 5.2 H ABG Chloride ABG Glucose 182 H Carboxyhemoglobin Sodium 136 L Potassium 6.0 H Chloride Carbon Dioxide 18 L BUN 68 H Creatinine 4.1 H Glucose 166 H POC Glucose Lactic Acid Calcium 6.2 L Ionized Calcium Phosphorus 7.30 H D Magnesium AST Alkaline Phosphatase Total Protein Albumin Triglycerides 164 H Arterial Blood Glucose 182 H Arterial Blood Ionized Calcium 3.4 L Urine Creatinine Crossmatch 12/27/20 12/27/20 12/27/20 04:50 10:51 11:17 WBC RBC Hgb Hct MCV MCHC RDW Plt Count Lymph % (Auto) Eos % (Auto) Lymph # (Auto) Eos # (Auto) Seg Neutrophils % Seg Neuts % (Manual) Lymphocytes % (Manual) Seg Neutrophils # Seg Neutrophils # Man Lymphocytes # (Manual) Monocytes # (Manual) PT INR APTT Fibrinogen ABG pH POC ABG pCO2 POC ABG pO2 ABG pO2 ABG Base Excess ABG Hemoglobin ABG Oxyhemoglobin ABG Sodium ABG Potassium ABG Chloride ABG Glucose Carboxyhemoglobin Sodium Potassium Chloride Carbon Dioxide BUN Creatinine Glucose POC Glucose 140 H 113 H 154 H Lactic Acid Calcium Ionized Calcium Phosphorus Magnesium AST Alkaline Phosphatase Total Protein Albumin Triglycerides Arterial Blood Glucose Arterial Blood Ionized Calcium Urine Creatinine Crossmatch 12/27/20 12/27/20 12/27/20 12:40 14:40 23:17 WBC RBC Hgb Hct MCV MCHC RDW Plt Count Lymph % (Auto) Eos % (Auto) Lymph # (Auto) Eos # (Auto) Seg Neutrophils % Seg Neuts % (Manual) Lymphocytes % (Manual) Seg Neutrophils # Seg Neutrophils # Man Lymphocytes # (Manual) Monocytes # (Manual) PT INR APTT Fibrinogen ABG pH POC ABG pCO2 POC ABG pO2 ABG pO2 ABG Base Excess ABG Hemoglobin ABG Oxyhemoglobin ABG Sodium ABG Potassium ABG Chloride ABG Glucose Carboxyhemoglobin Sodium 135 L Potassium Chloride Carbon Dioxide 21 L BUN 62 H Creatinine 3.8 H Glucose 132 H POC Glucose 130 H Lactic Acid Calcium 5.6 L* Ionized Calcium 3.3 L Phosphorus Magnesium AST Alkaline Phosphatase Total Protein Albumin Triglycerides Arterial Blood Glucose Arterial Blood Ionized Calcium Urine Creatinine Crossmatch 12/28/20 12/28/20 12/28/20 05:36 07:08 07:28 WBC 27.2 H RBC 3.50 L Hgb 9.6 L Hct 30.8 L MCV MCHC 31 L RDW 16.1 H Plt Count 111 L Lymph % (Auto) Eos % (Auto) Lymph # (Auto) Eos # (Auto) Seg Neutrophils % Seg Neuts % (Manual) 95.0 H Lymphocytes % (Manual) Seg Neutrophils # Seg Neutrophils # Man 25.8 H Lymphocytes # (Manual) 0.0 L Monocytes # (Manual) 1.1 H PT INR APTT Fibrinogen ABG pH 7.200 L POC ABG pCO2 POC ABG pO2 67.2 L ABG pO2 ABG Base Excess ABG Hemoglobin 10.3 L ABG Oxyhemoglobin 89.6 L ABG Sodium 127.8 L ABG Potassium 5.1 H ABG Chloride ABG Glucose 132 H Carboxyhemoglobin 0.4 L Sodium Potassium Chloride Carbon Dioxide BUN Creatinine Glucose POC Glucose 128 H Lactic Acid Calcium Ionized Calcium Phosphorus Magnesium AST Alkaline Phosphatase Total Protein Albumin Triglycerides Arterial Blood Glucose 132 H Arterial Blood Ionized Calcium 3.5 L Urine Creatinine Crossmatch 12/28/20 12/28/20 12/28/20 07:28 11:37 13:25 WBC RBC Hgb Hct MCV MCHC RDW Plt Count Lymph % (Auto) Eos % (Auto) Lymph # (Auto) Eos # (Auto) Seg Neutrophils % Seg Neuts % (Manual) Lymphocytes % (Manual) Seg Neutrophils # Seg Neutrophils # Man Lymphocytes # (Manual) Monocytes # (Manual) PT INR APTT Fibrinogen ABG pH POC ABG pCO2 POC ABG pO2 ABG pO2 ABG Base Excess ABG Hemoglobin ABG Oxyhemoglobin ABG Sodium ABG Potassium ABG Chloride ABG Glucose Carboxyhemoglobin Sodium 131 L 133 L Potassium 5.9 H 5.1 H Chloride 97.1 L Carbon Dioxide 15 L 21 L BUN 70 H 77 H Creatinine 4.0 H 4.4 H Glucose 118 H 140 H POC Glucose 135 H Lactic Acid Calcium 6.3 L 6.3 L Ionized Calcium Phosphorus 7.10 H Magnesium AST 144 H Alkaline Phosphatase Total Protein 4.8 L Albumin 1.3 L Triglycerides Arterial Blood Glucose Arterial Blood Ionized Calcium Urine Creatinine Crossmatch 12/28/20 12/28/20 12/29/20 16:38 23:28 03:08 WBC RBC Hgb Hct MCV MCHC RDW Plt Count Lymph % (Auto) Eos % (Auto) Lymph # (Auto) Eos # (Auto) Seg Neutrophils % Seg Neuts % (Manual) Lymphocytes % (Manual) Seg Neutrophils # Seg Neutrophils # Man Lymphocytes # (Manual) Monocytes # (Manual) PT INR APTT Fibrinogen ABG pH 7.301 L POC ABG pCO2 POC ABG pO2 151.1 H ABG pO2 ABG Base Excess ABG Hemoglobin 8.7 L ABG Oxyhemoglobin 98.2 H ABG Sodium 123.4 L ABG Potassium ABG Chloride 97.0 L ABG Glucose 144 H Carboxyhemoglobin Sodium Potassium Chloride Carbon Dioxide BUN Creatinine Glucose POC Glucose 140 H 134 H Lactic Acid Calcium Ionized Calcium Phosphorus Magnesium AST Alkaline Phosphatase Total Protein Albumin Triglycerides Arterial Blood Glucose 144 H Arterial Blood Ionized Calcium 3.4 L Urine Creatinine Crossmatch 12/29/20 12/29/20 12/29/20 05:20 05:20 06:01 WBC 21.0 H RBC 2.89 L Hgb 8.1 L Hct 25.5 L MCV MCHC RDW 16.1 H Plt Count 124 L Lymph % (Auto) Eos % (Auto) Lymph # (Auto) Eos # (Auto) Seg Neutrophils % Seg Neuts % (Manual) Lymphocytes % (Manual) Seg Neutrophils # Seg Neutrophils # Man Lymphocytes # (Manual) Monocytes # (Manual) PT INR APTT Fibrinogen ABG pH POC ABG pCO2 POC ABG pO2 ABG pO2 ABG Base Excess ABG Hemoglobin ABG Oxyhemoglobin ABG Sodium ABG Potassium ABG Chloride ABG Glucose Carboxyhemoglobin Sodium 131 L Potassium Chloride 93.4 L Carbon Dioxide BUN 79 H Creatinine 4.7 H Glucose 122 H POC Glucose 108 H Lactic Acid Calcium 5.5 L* Ionized Calcium Phosphorus 5.70 H Magnesium 1.60 L AST Alkaline Phosphatase Total Protein Albumin Triglycerides Arterial Blood Glucose Arterial Blood Ionized Calcium Urine Creatinine Crossmatch 12/29/20 12/29/20 12/29/20 10:04 11:27 17:31 WBC RBC Hgb Hct MCV MCHC RDW Plt Count Lymph % (Auto) Eos % (Auto) Lymph # (Auto) Eos # (Auto) Seg Neutrophils % Seg Neuts % (Manual) Lymphocytes % (Manual) Seg Neutrophils # Seg Neutrophils # Man Lymphocytes # (Manual) Monocytes # (Manual) PT INR APTT Fibrinogen ABG pH POC ABG pCO2 POC ABG pO2 ABG pO2 ABG Base Excess ABG Hemoglobin ABG Oxyhemoglobin ABG Sodium ABG Potassium ABG Chloride ABG Glucose Carboxyhemoglobin Sodium Potassium Chloride Carbon Dioxide BUN Creatinine Glucose POC Glucose 107 H 112 H 110 H Lactic Acid Calcium Ionized Calcium Phosphorus Magnesium AST Alkaline Phosphatase Total Protein Albumin Triglycerides Arterial Blood Glucose Arterial Blood Ionized Calcium Urine Creatinine Crossmatch 12/30/20 12/30/20 12/30/20 03:31 08:06 17:39 WBC RBC Hgb Hct MCV MCHC RDW Plt Count Lymph % (Auto) Eos % (Auto) Lymph # (Auto) Eos # (Auto) Seg Neutrophils % Seg Neuts % (Manual) Lymphocytes % (Manual) Seg Neutrophils # Seg Neutrophils # Man Lymphocytes # (Manual) Monocytes # (Manual) PT INR APTT Fibrinogen ABG pH 7.261 L POC ABG pCO2 POC ABG pO2 123.1 H ABG pO2 ABG Base Excess ABG Hemoglobin 8.7 L ABG Oxyhemoglobin ABG Sodium 123.2 L ABG Potassium ABG Chloride 96.0 L ABG Glucose 112 H Carboxyhemoglobin Sodium 128 L Potassium Chloride 90.7 L Carbon Dioxide 21 L BUN 86 H Creatinine 4.9 H Glucose 107 H POC Glucose 134 H Lactic Acid Calcium 6.2 L Ionized Calcium Phosphorus 5.30 H Magnesium 1.50 L AST Alkaline Phosphatase Total Protein Albumin Triglycerides Arterial Blood Glucose 112 H Arterial Blood Ionized Calcium 3.2 L Urine Creatinine Crossmatch 12/30/20 12/31/20 12/31/20 22:45 02:14 04:40 WBC RBC Hgb Hct MCV MCHC RDW Plt Count Lymph % (Auto) Eos % (Auto) Lymph # (Auto) Eos # (Auto) Seg Neutrophils % Seg Neuts % (Manual) Lymphocytes % (Manual) Seg Neutrophils # Seg Neutrophils # Man Lymphocytes # (Manual) Monocytes # (Manual) PT INR APTT Fibrinogen ABG pH 7.267 L POC ABG pCO2 POC ABG pO2 ABG pO2 ABG Base Excess ABG Hemoglobin 8.0 L ABG Oxyhemoglobin 93.7 L ABG Sodium ABG Potassium ABG Chloride 95.0 L ABG Glucose 108 H Carboxyhemoglobin 1.7 H Sodium 126 L Potassium Chloride 90.3 L Carbon Dioxide 20 L BUN 70 H Creatinine 4.3 H Glucose 209 H POC Glucose 109 H Lactic Acid Calcium 6.6 L Ionized Calcium Phosphorus 4.70 H Magnesium 1.60 L AST Alkaline Phosphatase Total Protein Albumin Triglycerides 157 H Arterial Blood Glucose 108 H Arterial Blood Ionized Calcium 3.7 L Urine Creatinine Crossmatch 12/31/20 12/31/20 01/01/21 16:23 23:21 04:00 WBC 18.0 H RBC 2.75 L Hgb 7.7 L Hct 23.9 L MCV MCHC RDW 15.6 H Plt Count Lymph % (Auto) Eos % (Auto) Lymph # (Auto) Eos # (Auto) Seg Neutrophils % Seg Neuts % (Manual) 91.0 H Lymphocytes % (Manual) 6.0 L Seg Neutrophils # Seg Neutrophils # Man 16.4 H Lymphocytes # (Manual) 1.1 L Monocytes # (Manual) PT INR APTT Fibrinogen ABG pH 7.264 L POC ABG pCO2 POC ABG pO2 74.8 L ABG pO2 ABG Base Excess ABG Hemoglobin 7.1 L ABG Oxyhemoglobin 92.1 L ABG Sodium 124.9 L ABG Potassium ABG Chloride 95.0 L ABG Glucose 111 H Carboxyhemoglobin 1.7 H Sodium Potassium Chloride Carbon Dioxide BUN Creatinine Glucose POC Glucose 125 H Lactic Acid Calcium Ionized Calcium Phosphorus Magnesium AST Alkaline Phosphatase Total Protein Albumin Triglycerides Arterial Blood Glucose 111 H Arterial Blood Ionized Calcium 4.0 L Urine Creatinine Crossmatch 01/01/21 01/01/21 01/01/21 05:50 13:41 15:55 WBC RBC Hgb Hct MCV MCHC RDW Plt Count Lymph % (Auto) Eos % (Auto) Lymph # (Auto) Eos # (Auto) Seg Neutrophils % Seg Neuts % (Manual) Lymphocytes % (Manual) Seg Neutrophils # Seg Neutrophils # Man Lymphocytes # (Manual) Monocytes # (Manual) PT INR APTT Fibrinogen ABG pH 7.148 L 7.207 L POC ABG pCO2 53.1 H POC ABG pO2 57.3 L 138.4 H ABG pO2 ABG Base Excess ABG Hemoglobin 9.0 L 8.3 L ABG Oxyhemoglobin 83.2 L ABG Sodium 126.2 L 124.5 L ABG Potassium ABG Chloride 95.0 L 95.0 L ABG Glucose 96 H 120 H Carboxyhemoglobin Sodium 131 L Potassium Chloride 93.3 L Carbon Dioxide 21 L BUN 67 H Creatinine 4.2 H Glucose POC Glucose Lactic Acid Calcium 7.1 L Ionized Calcium Phosphorus Magnesium AST 60 H Alkaline Phosphatase Total Protein 4.8 L Albumin 1.4 L Triglycerides Arterial Blood Glucose 96 H 120 H Arterial Blood Ionized Calcium 4.1 L 3.9 L Urine Creatinine Crossmatch 01/01/21 01/01/21 01/02/21 17:09 23:24 03:47 WBC RBC Hgb Hct MCV MCHC RDW Plt Count Lymph % (Auto) Eos % (Auto) Lymph # (Auto) Eos # (Auto) Seg Neutrophils % Seg Neuts % (Manual) Lymphocytes % (Manual) Seg Neutrophils # Seg Neutrophils # Man Lymphocytes # (Manual) Monocytes # (Manual) PT INR APTT Fibrinogen ABG pH 7.276 L POC ABG pCO2 POC ABG pO2 173.6 H ABG pO2 ABG Base Excess ABG Hemoglobin 7 L ABG Oxyhemoglobin ABG Sodium 122.4 L ABG Potassium ABG Chloride 94.0 L ABG Glucose 118 H Carboxyhemoglobin Sodium Potassium Chloride Carbon Dioxide BUN Creatinine Glucose POC Glucose 124 H 119 H Lactic Acid Calcium Ionized Calcium Phosphorus Magnesium AST Alkaline Phosphatase Total Protein Albumin Triglycerides Arterial Blood Glucose 118 H Arterial Blood Ionized Calcium 4.0 L Urine Creatinine Crossmatch 01/02/21 01/02/21 01/02/21 05:33 08:00 08:00 WBC 19.7 H RBC 2.53 L Hgb 7.1 L Hct 22.0 L MCV MCHC RDW 16.4 H Plt Count Lymph % (Auto) Eos % (Auto) Lymph # (Auto) Eos # (Auto) Seg Neutrophils % Seg Neuts % (Manual) Lymphocytes % (Manual) Seg Neutrophils # Seg Neutrophils # Man Lymphocytes # (Manual) Monocytes # (Manual) PT INR APTT Fibrinogen ABG pH POC ABG pCO2 POC ABG pO2 ABG pO2 ABG Base Excess ABG Hemoglobin ABG Oxyhemoglobin ABG Sodium ABG Potassium ABG Chloride ABG Glucose Carboxyhemoglobin Sodium 127 L Potassium Chloride 89.3 L Carbon Dioxide 19 L BUN 82 H Creatinine 5.0 H Glucose 103 H POC Glucose 107 H Lactic Acid Calcium 7.8 L Ionized Calcium Phosphorus 6.40 H Magnesium AST 47 H Alkaline Phosphatase Total Protein 5.0 L Albumin 1.6 L Triglycerides Arterial Blood Glucose Arterial Blood Ionized Calcium Urine Creatinine Crossmatch 01/02/21 01/03/21 01/03/21 17:25 07:56 09:47 WBC 17.7 H RBC 2.19 L Hgb 6.2 L Hct 18.5 L* MCV MCHC RDW 16.1 H Plt Count Lymph % (Auto) Eos % (Auto) Lymph # (Auto) Eos # (Auto) Seg Neutrophils % Seg Neuts % (Manual) Lymphocytes % (Manual) Seg Neutrophils # Seg Neutrophils # Man Lymphocytes # (Manual) Monocytes # (Manual) PT INR APTT Fibrinogen ABG pH POC ABG pCO2 POC ABG pO2 ABG pO2 ABG Base Excess ABG Hemoglobin ABG Oxyhemoglobin ABG Sodium ABG Potassium ABG Chloride ABG Glucose Carboxyhemoglobin Sodium 130 L Potassium 3.5 L Chloride 90.3 L Carbon Dioxide BUN 68 H Creatinine 3.9 H Glucose 103 H POC Glucose 116 H Lactic Acid Calcium 8.0 L Ionized Calcium Phosphorus 4.80 H D Magnesium AST Alkaline Phosphatase Total Protein Albumin Triglycerides Arterial Blood Glucose Arterial Blood Ionized Calcium Urine Creatinine Crossmatch 01/03/21 01/03/21 01/04/21 11:00 19:00 03:12 WBC 17.0 H RBC 2.51 L Hgb 7.1 L Hct 21.5 L MCV MCHC RDW 16.6 H Plt Count Lymph % (Auto) Eos % (Auto) Lymph # (Auto) Eos # (Auto) Seg Neutrophils % Seg Neuts % (Manual) Lymphocytes % (Manual) Seg Neutrophils # Seg Neutrophils # Man Lymphocytes # (Manual) Monocytes # (Manual) PT INR APTT Fibrinogen ABG pH 7.463 H POC ABG pCO2 POC ABG pO2 72.2 L ABG pO2 ABG Base Excess ABG Hemoglobin 6.2 L ABG Oxyhemoglobin 91.8 L ABG Sodium 128.4 L ABG Potassium 3.3 L ABG Chloride 96.0 L ABG Glucose 112 H Carboxyhemoglobin Sodium Potassium Chloride Carbon Dioxide BUN Creatinine Glucose POC Glucose Lactic Acid Calcium Ionized Calcium Phosphorus Magnesium AST Alkaline Phosphatase Total Protein Albumin Triglycerides Arterial Blood Glucose 112 H Arterial Blood Ionized Calcium 4.3 L Urine Creatinine Crossmatch See Detail 01/04/21 01/04/21 01/04/21 05:16 06:20 06:20 WBC 18.5 H RBC 2.53 L Hgb 7.4 L Hct 21.9 L MCV MCHC RDW 15.8 H Plt Count Lymph % (Auto) Eos % (Auto) Lymph # (Auto) Eos # (Auto) Seg Neutrophils % Seg Neuts % (Manual) Lymphocytes % (Manual) Seg Neutrophils # Seg Neutrophils # Man Lymphocytes # (Manual) Monocytes # (Manual) PT INR APTT Fibrinogen ABG pH POC ABG pCO2 POC ABG pO2 ABG pO2 ABG Base Excess ABG Hemoglobin ABG Oxyhemoglobin ABG Sodium ABG Potassium ABG Chloride ABG Glucose Carboxyhemoglobin Sodium 135 L Potassium Chloride 95.2 L Carbon Dioxide BUN 56 H Creatinine 3.2 H Glucose 109 H POC Glucose 123 H Lactic Acid Calcium 7.6 L Ionized Calcium Phosphorus Magnesium AST Alkaline Phosphatase Total Protein Albumin Triglycerides Arterial Blood Glucose Arterial Blood Ionized Calcium Urine Creatinine Crossmatch 01/05/21 01/05/21 01/05/21 03:50 07:22 07:22 WBC 23.8 H RBC 2.93 L Hgb 8.2 L Hct 25.1 L MCV MCHC RDW 16.5 H Plt Count Lymph % (Auto) Eos % (Auto) Lymph # (Auto) Eos # (Auto) Seg Neutrophils % Seg Neuts % (Manual) Lymphocytes % (Manual) Seg Neutrophils # Seg Neutrophils # Man Lymphocytes # (Manual) Monocytes # (Manual) PT INR APTT Fibrinogen ABG pH POC ABG pCO2 POC ABG pO2 ABG pO2 136.8 H ABG Base Excess -2.3 L ABG Hemoglobin 6.9 L ABG Oxyhemoglobin ABG Sodium ABG Potassium ABG Chloride ABG Glucose Carboxyhemoglobin Sodium 134 L Potassium Chloride 93.3 L Carbon Dioxide BUN 77 H Creatinine 4.2 H Glucose 105 H POC Glucose Lactic Acid Calcium Ionized Calcium Phosphorus 4.90 H D Magnesium AST Alkaline Phosphatase Total Protein Albumin Triglycerides Arterial Blood Glucose Arterial Blood Ionized Calcium Urine Creatinine Crossmatch 01/05/21 01/05/21 01/05/21 11:02 14:06 15:37 WBC RBC Hgb Hct MCV MCHC RDW Plt Count Lymph % (Auto) Eos % (Auto) Lymph # (Auto) Eos # (Auto) Seg Neutrophils % Seg Neuts % (Manual) Lymphocytes % (Manual) Seg Neutrophils # Seg Neutrophils # Man Lymphocytes # (Manual) Monocytes # (Manual) PT INR APTT Fibrinogen ABG pH POC ABG pCO2 POC ABG pO2 332.3 H ABG pO2 ABG Base Excess ABG Hemoglobin 7.7 L ABG Oxyhemoglobin 98.7 H ABG Sodium 131.0 L ABG Potassium 3.3 L ABG Chloride 97.0 L ABG Glucose 118 H Carboxyhemoglobin Sodium Potassium Chloride Carbon Dioxide BUN Creatinine Glucose POC Glucose 118 H 111 H Lactic Acid Calcium Ionized Calcium Phosphorus Magnesium AST Alkaline Phosphatase Total Protein Albumin Triglycerides Arterial Blood Glucose 118 H Arterial Blood Ionized Calcium 4.4 L Urine Creatinine Crossmatch 01/05/21 01/06/21 01/06/21 23:18 04:00 04:20 WBC RBC Hgb Hct MCV MCHC RDW Plt Count Lymph % (Auto) Eos % (Auto) Lymph # (Auto) Eos # (Auto) Seg Neutrophils % Seg Neuts % (Manual) Lymphocytes % (Manual) Seg Neutrophils # Seg Neutrophils # Man Lymphocytes # (Manual) Monocytes # (Manual) PT INR APTT Fibrinogen ABG pH POC ABG pCO2 POC ABG pO2 230.5 H ABG pO2 ABG Base Excess ABG Hemoglobin 7.9 L ABG Oxyhemoglobin 98.5 H ABG Sodium 129.4 L ABG Potassium ABG Chloride 97.0 L ABG Glucose 117 H Carboxyhemoglobin Sodium 133 L Potassium Chloride 94.4 L Carbon Dioxide BUN 62 H Creatinine 3.6 H Glucose 110 H POC Glucose 110 H Lactic Acid Calcium 7.8 L Ionized Calcium Phosphorus Magnesium AST Alkaline Phosphatase Total Protein Albumin Triglycerides Arterial Blood Glucose 117 H Arterial Blood Ionized Calcium 4.5 L Urine Creatinine Crossmatch 01/06/21 01/06/21 01/06/21 05:28 09:00 11:00 WBC 15.2 H RBC 2.18 L Hgb 6.5 L Hct 21.8 L MCV 100 H MCHC 30 L RDW 18.5 H Plt Count Lymph % (Auto) Eos % (Auto) Lymph # (Auto) Eos # (Auto) Seg Neutrophils % Seg Neuts % (Manual) Lymphocytes % (Manual) Seg Neutrophils # Seg Neutrophils # Man Lymphocytes # (Manual) Monocytes # (Manual) PT INR APTT Fibrinogen ABG pH POC ABG pCO2 POC ABG pO2 ABG pO2 ABG Base Excess ABG Hemoglobin ABG Oxyhemoglobin ABG Sodium ABG Potassium ABG Chloride ABG Glucose Carboxyhemoglobin Sodium Potassium Chloride Carbon Dioxide BUN Creatinine Glucose POC Glucose 109 H Lactic Acid Calcium Ionized Calcium Phosphorus Magnesium AST Alkaline Phosphatase Total Protein Albumin Triglycerides Arterial Blood Glucose Arterial Blood Ionized Calcium Urine Creatinine Crossmatch See Detail 01/06/21 01/06/21 01/07/21 11:32 23:44 03:10 WBC 15.3 H RBC 2.30 L Hgb 6.7 L Hct 20.1 L MCV MCHC RDW 16.6 H Plt Count Lymph % (Auto) Eos % (Auto) Lymph # (Auto) Eos # (Auto) Seg Neutrophils % Seg Neuts % (Manual) Lymphocytes % (Manual) Seg Neutrophils # Seg Neutrophils # Man Lymphocytes # (Manual) Monocytes # (Manual) PT INR APTT Fibrinogen ABG pH POC ABG pCO2 POC ABG pO2 ABG pO2 ABG Base Excess ABG Hemoglobin ABG Oxyhemoglobin ABG Sodium ABG Potassium ABG Chloride ABG Glucose Carboxyhemoglobin Sodium Potassium Chloride Carbon Dioxide BUN Creatinine Glucose POC Glucose 113 H 118 H Lactic Acid Calcium Ionized Calcium Phosphorus Magnesium AST Alkaline Phosphatase Total Protein Albumin Triglycerides Arterial Blood Glucose Arterial Blood Ionized Calcium Urine Creatinine Crossmatch 01/07/21 01/07/21 01/07/21 03:10 04:17 05:06 WBC RBC Hgb Hct MCV MCHC RDW Plt Count Lymph % (Auto) Eos % (Auto) Lymph # (Auto) Eos # (Auto) Seg Neutrophils % Seg Neuts % (Manual) Lymphocytes % (Manual) Seg Neutrophils # Seg Neutrophils # Man Lymphocytes # (Manual) Monocytes # (Manual) PT INR APTT Fibrinogen ABG pH 7.272 L POC ABG pCO2 50.1 H POC ABG pO2 ABG pO2 ABG Base Excess ABG Hemoglobin 8.4 L ABG Oxyhemoglobin ABG Sodium 128.6 L ABG Potassium ABG Chloride 95.0 L ABG Glucose 109 H Carboxyhemoglobin Sodium 133 L Potassium Chloride 93.6 L Carbon Dioxide BUN 85 H Creatinine 3.9 H Glucose 112 H POC Glucose 106 H Lactic Acid Calcium Ionized Calcium Phosphorus 4.70 H D Magnesium AST Alkaline Phosphatase Total Protein Albumin Triglycerides Arterial Blood Glucose 109 H Arterial Blood Ionized Calcium Urine Creatinine Crossmatch 01/07/21 01/07/21 01/07/21 14:05 16:00 23:25 WBC RBC Hgb 8.1 L Hct 24.2 L MCV MCHC RDW Plt Count Lymph % (Auto) Eos % (Auto) Lymph # (Auto) Eos # (Auto) Seg Neutrophils % Seg Neuts % (Manual) Lymphocytes % (Manual) Seg Neutrophils # Seg Neutrophils # Man Lymphocytes # (Manual) Monocytes # (Manual) PT INR APTT Fibrinogen ABG pH POC ABG pCO2 POC ABG pO2 ABG pO2 ABG Base Excess ABG Hemoglobin 7.2 L ABG Oxyhemoglobin ABG Sodium 127.3 L ABG Potassium ABG Chloride 96.0 L ABG Glucose 98 H Carboxyhemoglobin Sodium Potassium Chloride Carbon Dioxide BUN Creatinine Glucose POC Glucose 106 H Lactic Acid Calcium Ionized Calcium Phosphorus Magnesium AST Alkaline Phosphatase Total Protein Albumin Triglycerides Arterial Blood Glucose 98 H Arterial Blood Ionized Calcium Urine Creatinine Crossmatch 01/08/21 01/08/21 01/08/21 03:22 05:30 23:22 WBC RBC Hgb Hct MCV MCHC RDW Plt Count Lymph % (Auto) Eos % (Auto) Lymph # (Auto) Eos # (Auto) Seg Neutrophils % Seg Neuts % (Manual) Lymphocytes % (Manual) Seg Neutrophils # Seg Neutrophils # Man Lymphocytes # (Manual) Monocytes # (Manual) PT INR APTT Fibrinogen ABG pH POC ABG pCO2 POC ABG pO2 71.3 L ABG pO2 ABG Base Excess ABG Hemoglobin 8.7 L ABG Oxyhemoglobin 92.2 L ABG Sodium 125.9 L ABG Potassium ABG Chloride 96.0 L ABG Glucose 124 H Carboxyhemoglobin Sodium Potassium Chloride Carbon Dioxide BUN Creatinine Glucose POC Glucose 118 H 110 H Lactic Acid Calcium Ionized Calcium Phosphorus Magnesium AST Alkaline Phosphatase Total Protein Albumin Triglycerides Arterial Blood Glucose 124 H Arterial Blood Ionized Calcium Urine Creatinine Crossmatch 01/08/21 01/08/21 01/09/21 Unknown Unknown 08:45 WBC 15.2 H RBC 2.62 L Hgb 7.6 L Hct 22.7 L MCV MCHC RDW 16.7 H Plt Count Lymph % (Auto) Eos % (Auto) Lymph # (Auto) Eos # (Auto) Seg Neutrophils % Seg Neuts % (Manual) 95.0 H Lymphocytes % (Manual) 3.0 L Seg Neutrophils # Seg Neutrophils # Man 14.4 H Lymphocytes # (Manual) 0.5 L Monocytes # (Manual) PT INR APTT Fibrinogen ABG pH POC ABG pCO2 POC ABG pO2 ABG pO2 ABG Base Excess ABG Hemoglobin ABG Oxyhemoglobin ABG Sodium ABG Potassium ABG Chloride ABG Glucose Carboxyhemoglobin Sodium 129 L 129 L Potassium Chloride 91.2 L 92.7 L Carbon Dioxide 21 L 19 L BUN 91 H 105 H Creatinine 4.0 H 4.4 H Glucose 115 H 107 H POC Glucose Lactic Acid Calcium Ionized Calcium Phosphorus 5.00 H Magnesium AST Alkaline Phosphatase Total Protein 5.3 L Albumin 1.6 L Triglycerides 166 H Arterial Blood Glucose Arterial Blood Ionized Calcium Urine Creatinine Crossmatch 01/09/21 01/09/21 01/10/21 10:10 23:51 04:00 WBC 14.1 H RBC 2.50 L Hgb 7.2 L Hct 21.6 L MCV MCHC RDW 16.5 H Plt Count Lymph % (Auto) Eos % (Auto) Lymph # (Auto) Eos # (Auto) Seg Neutrophils % Seg Neuts % (Manual) 92.0 H Lymphocytes % (Manual) 2.0 L Seg Neutrophils # Seg Neutrophils # Man 13.0 H Lymphocytes # (Manual) 0.3 L Monocytes # (Manual) PT INR APTT Fibrinogen ABG pH 7.273 L POC ABG pCO2 POC ABG pO2 ABG pO2 ABG Base Excess ABG Hemoglobin 8.7 L ABG Oxyhemoglobin ABG Sodium 126.2 L ABG Potassium 4.8 H ABG Chloride 96.0 L ABG Glucose 160 H Carboxyhemoglobin Sodium Potassium Chloride Carbon Dioxide BUN Creatinine Glucose POC Glucose 154 H Lactic Acid Calcium Ionized Calcium Phosphorus Magnesium AST Alkaline Phosphatase Total Protein Albumin Triglycerides Arterial Blood Glucose 160 H Arterial Blood Ionized Calcium Urine Creatinine Crossmatch 01/10/21 01/10/21 01/10/21 04:01 04:01 04:01 WBC 12.6 H RBC 2.89 L Hgb 8.1 L Hct 24.9 L MCV MCHC RDW 16.6 H Plt Count Lymph % (Auto) Eos % (Auto) Lymph # (Auto) Eos # (Auto) Seg Neutrophils % Seg Neuts % (Manual) 95.0 H Lymphocytes % (Manual) 3.0 L Seg Neutrophils # Seg Neutrophils # Man 12.0 H Lymphocytes # (Manual) 0.4 L Monocytes # (Manual) PT 15.4 H INR 1.17 H APTT 40.2 H Fibrinogen 817 H ABG pH POC ABG pCO2 POC ABG pO2 ABG pO2 ABG Base Excess ABG Hemoglobin ABG Oxyhemoglobin ABG Sodium ABG Potassium ABG Chloride ABG Glucose Carboxyhemoglobin Sodium 128 L Potassium Chloride 90.4 L Carbon Dioxide 19 L BUN 113 H Creatinine 4.5 H Glucose 162 H POC Glucose Lactic Acid Calcium Ionized Calcium Phosphorus 5.70 H Magnesium AST Alkaline Phosphatase Total Protein 6.2 L Albumin 2.1 L Triglycerides Arterial Blood Glucose Arterial Blood Ionized Calcium Urine Creatinine Crossmatch 01/10/21 01/10/21 01/11/21 05:31 11:45 04:00 WBC RBC Hgb Hct MCV MCHC RDW Plt Count Lymph % (Auto) Eos % (Auto) Lymph # (Auto) Eos # (Auto) Seg Neutrophils % Seg Neuts % (Manual) Lymphocytes % (Manual) Seg Neutrophils # Seg Neutrophils # Man Lymphocytes # (Manual) Monocytes # (Manual) PT INR APTT Fibrinogen ABG pH 7.311 L POC ABG pCO2 49.2 H POC ABG pO2 ABG pO2 ABG Base Excess ABG Hemoglobin 9.4 L ABG Oxyhemoglobin ABG Sodium 130.3 L ABG Potassium ABG Chloride 96.0 L ABG Glucose 104 H Carboxyhemoglobin Sodium Potassium Chloride Carbon Dioxide BUN Creatinine Glucose POC Glucose 150 H 145 H Lactic Acid Calcium Ionized Calcium Phosphorus Magnesium AST Alkaline Phosphatase Total Protein Albumin Triglycerides Arterial Blood Glucose 104 H Arterial Blood Ionized Calcium Urine Creatinine Crossmatch 01/11/21 01/11/21 01/12/21 04:45 17:29 05:51 WBC RBC Hgb Hct MCV MCHC RDW Plt Count Lymph % (Auto) Eos % (Auto) Lymph # (Auto) Eos # (Auto) Seg Neutrophils % Seg Neuts % (Manual) Lymphocytes % (Manual) Seg Neutrophils # Seg Neutrophils # Man Lymphocytes # (Manual) Monocytes # (Manual) PT INR APTT Fibrinogen ABG pH POC ABG pCO2 POC ABG pO2 ABG pO2 ABG Base Excess ABG Hemoglobin ABG Oxyhemoglobin ABG Sodium ABG Potassium ABG Chloride ABG Glucose Carboxyhemoglobin Sodium 134 L Potassium 3.5 L D Chloride 95.5 L Carbon Dioxide BUN 88 H Creatinine 3.5 H Glucose 103 H POC Glucose 109 H 114 H Lactic Acid Calcium Ionized Calcium Phosphorus Magnesium AST Alkaline Phosphatase Total Protein Albumin Triglycerides Arterial Blood Glucose Arterial Blood Ionized Calcium Urine Creatinine Crossmatch 01/12/21 01/12/21 01/12/21 10:00 10:00 11:56 WBC RBC Hgb Hct MCV MCHC RDW Plt Count Lymph % (Auto) Eos % (Auto) Lymph # (Auto) Eos # (Auto) Seg Neutrophils % Seg Neuts % (Manual) Lymphocytes % (Manual) Seg Neutrophils # Seg Neutrophils # Man Lymphocytes # (Manual) Monocytes # (Manual) PT INR APTT Fibrinogen ABG pH POC ABG pCO2 POC ABG pO2 ABG pO2 ABG Base Excess ABG Hemoglobin ABG Oxyhemoglobin ABG Sodium ABG Potassium ABG Chloride ABG Glucose Carboxyhemoglobin Sodium 136 L Potassium Chloride 95.2 L Carbon Dioxide BUN 102 H Creatinine 3.6 H Glucose 106 H POC Glucose 113 H Lactic Acid Calcium Ionized Calcium Phosphorus 4.90 H Magnesium AST Alkaline Phosphatase Total Protein Albumin Triglycerides 153 H Arterial Blood Glucose Arterial Blood Ionized Calcium Urine Creatinine Crossmatch 01/12/21 01/12/21 01/13/21 17:43 23:31 03:14 WBC RBC Hgb Hct MCV MCHC RDW Plt Count Lymph % (Auto) Eos % (Auto) Lymph # (Auto) Eos # (Auto) Seg Neutrophils % Seg Neuts % (Manual) Lymphocytes % (Manual) Seg Neutrophils # Seg Neutrophils # Man Lymphocytes # (Manual) Monocytes # (Manual) PT INR APTT Fibrinogen ABG pH 7.484 H POC ABG pCO2 POC ABG pO2 ABG pO2 ABG Base Excess ABG Hemoglobin 8.4 L ABG Oxyhemoglobin ABG Sodium 134.4 L ABG Potassium 3.1 L ABG Chloride ABG Glucose 117 H Carboxyhemoglobin Sodium Potassium Chloride Carbon Dioxide BUN Creatinine Glucose POC Glucose 113 H 108 H Lactic Acid Calcium Ionized Calcium Phosphorus Magnesium AST Alkaline Phosphatase Total Protein Albumin Triglycerides Arterial Blood Glucose 117 H Arterial Blood Ionized Calcium 4.5 L Urine Creatinine Crossmatch 01/13/21 01/13/21 01/13/21 04:56 05:00 05:00 WBC RBC 2.87 L Hgb 8.0 L Hct 24.4 L MCV MCHC RDW 17.2 H Plt Count Lymph % (Auto) Eos % (Auto) Lymph # (Auto) Eos # (Auto) Seg Neutrophils % Seg Neuts % (Manual) Lymphocytes % (Manual) Seg Neutrophils # Seg Neutrophils # Man Lymphocytes # (Manual) Monocytes # (Manual) PT INR APTT Fibrinogen ABG pH POC ABG pCO2 POC ABG pO2 ABG pO2 ABG Base Excess ABG Hemoglobin ABG Oxyhemoglobin ABG Sodium ABG Potassium ABG Chloride ABG Glucose Carboxyhemoglobin Sodium Potassium 3.0 L Chloride 97.6 L Carbon Dioxide BUN 69 H Creatinine 2.9 H Glucose 114 H POC Glucose 110 H Lactic Acid Calcium 8.0 L Ionized Calcium Phosphorus Magnesium AST Alkaline Phosphatase Total Protein Albumin Triglycerides Arterial Blood Glucose Arterial Blood Ionized Calcium Urine Creatinine Crossmatch 01/13/21 01/14/21 01/14/21 12:09 05:00 05:00 WBC 12.4 H RBC 2.72 L Hgb 7.7 L Hct 23.3 L MCV MCHC RDW 17.3 H Plt Count Lymph % (Auto) 6.5 L Eos % (Auto) 7.7 H Lymph # (Auto) 0.8 L Eos # (Auto) 1.0 H Seg Neutrophils % 82.7 H Seg Neuts % (Manual) Lymphocytes % (Manual) Seg Neutrophils # 10.2 H Seg Neutrophils # Man Lymphocytes # (Manual) Monocytes # (Manual) PT INR APTT Fibrinogen ABG pH POC ABG pCO2 POC ABG pO2 ABG pO2 ABG Base Excess ABG Hemoglobin ABG Oxyhemoglobin ABG Sodium ABG Potassium ABG Chloride ABG Glucose Carboxyhemoglobin Sodium Potassium 3.2 L Chloride Carbon Dioxide BUN 79 H Creatinine 3.1 H Glucose POC Glucose 111 H Lactic Acid Calcium Ionized Calcium Phosphorus Magnesium AST Alkaline Phosphatase Total Protein Albumin Triglycerides Arterial Blood Glucose Arterial Blood Ionized Calcium Urine Creatinine Crossmatch
[2021-01-15] MEDS: FAMOTIDINE 20 MG/2 ML INJ IV SCH (11:05)
--- NOTE | 2021-01-15 11:12 | Progress Note ---
Assessment and Plan Assessment and plan: 60-year-old male with obesity, hypertension, nicotine dependence, PVD s/p stent placement on dual antiplatelet therapy, hyperlipidemia, OA, GERD, ventral hernia and small bowel obstruction who was admitted with small bowel obstruction and peritonitis Septic Shock, POA (presented with leukocytosis, tachycardia, tachypnea,febrile and evidence of peritonitis) HPI -12/20 CT abdomen/pelvis showed high-grade small bowel obstruction related to severe complex ventral abdominal wall hernias, progressed in appearance from prior exam from 09/12/2020 without evidence of pneumonitis or pneumoperitoneum, patchy bibasilar airspace disease concern for atypical infectious process/pneumonitis --s/p ex lap, extensive lysis of adhesions, small bowel resection (removal of 70 cm necrotic small bowel segment), peritoneal lavage and ABThera abdominal wound VAC placement -12/23 s/p abdominal exploration, small bowel resection, peritoneal lavage, ABThera wound VAC placement -12/26 s/p ex lap, small bowel resection, peritoneal lavage, ABThera wound VAC placement -12/27 s/p ex lap, extensive lysis of adhesions, small bowel resection (removal of 70 cm necrotic small bowel segment), peritoneal lavage and ABThera abdominal wound VAC placement. -12/29 s/p ex lap, small bowel resection, small bowel anastomosis and ABThera wound VAC placement -01/01 s/p myocutaneous flap creation, abdominal wall component separation and placement of phasix mesh with surgery yesterday where his abdomen was closed and 2 LAURA drains were placed on either side of his midline between fascia and SQ tissue. -12/30 initiated on HD by nephro -01/03 RBC x2 -01/06 RBC -01/07 RBC -01/09 stool pos for guiac; CT Chest/abd/pelvis -01/10: Patient this morning with elevated BP, likely secondary to pain vs ?Hx of Htn, Hydralazine PRN ordered and added to the patient, will monitor. Continue pain control. Wound care management and vent weaning when ok with surgery and Special Agent 01/12: Continue supportive care including pain control. Monitor for bowel movement. Continue off antibiotics per ID monitor. Snack Bar Attendant following for HD. 01/13/21 patient is seen and examined. Patient is still on vent. Wean to extubate as per critical care. Patient is off antibiotic as per infectious disease. Status post dialysis catheter placed in the right IJ. HD as per nephrology. Continue current management. Recheck CBC BMP in the morning. 01/14/21 patient seen and examined. Patient is still on vent. Patient is agitated. We will try to wean the sedation. We will start metoprolol 5 mg p.o. every 8 hours as needed for blood pressure. Patient is off antibiotic as per infectious disease. Continue hemodialysis as per nephrology. Continue current management. Critical care follow-up. Prognosis is guarded. Recheck CBC BMP in the morning 01/15: Remains with guarded prognosis, no clear evidence of renal recovery, still on the vent. Monitor H/H and repeat CT A/P if downward trend. Replace K. Problem List COVID-19 PUI, ruled out Small bowel obstruction with peritonitis Ventral hernia s/p repair Leukocytosis Anemia Hyponatremia Hypochloremia Acute Kidney Injury, on HD Obesity Hypertension Nicotine dependence CAD s/p stent placement Hyperlipidemia Osteoarthritis GERD medical non adherence Systems Exam NEURO- uremic; sedated; generalized weakness; post op pain; high risk delirium opens eyes; nods appropriately; following commands PERRL generalized weakness fentanyl weaned off overnight now on dex and propofol - low doses dex does make pt bradycardic RASS goal neg 4 PRN tylenol for pain NOK mother - pt's brother was updated on plan of care case management following for d/c planning CV- nap SB-SR As pt is awake more his bp has increased PRN hydral RESP- post op resp failure remains ventilated on CMV [id number] daily ABG wean as tolerated to PS trails intubated 12/20 if fails to extubate soon - likely trach ABG daily and PRN GI- sp SBO with exlap repair; protein isha malnutrition TF at 10- tolerating well TPN nutrition following LAURA x 2/abd drains with minimal outpput continue to trend output Gen surg following stooling NJ daily dulclox reglan daily pepcid scheduled - JONI requiring HD; hyponatremia; hyperK; uremia haley strict I/O trending electrolytes nephrology following HD usually M/W/F HD today - sp contrast -cleaned no UF- tolerated well kidney function seems to be returning pt was net neg 1.7L over the last 24 hurs- and he made 2.8L of urine Na 128 - continue to monitor; post HD today AM labs ordered HEME- post op anemia SQH VTE RBC x 2 on 01/03; RBC x 1 on 01/06 and RBC x 1 on 01/07 -- see hgb trend; Gen surg has discussed with IR- will monitor for now- if there is a dec in Hgb will consider CTA abd/pelvis and IR intervention coags normal CBC in AM ID- leukocytosis ID following no antibiotics at this time trend WBC and temp curve consider rotation of vascath if concern for infection 12/21 covid neg 12/21 Hep. neg wound care per staffing and scheduling coordinator ENDO- DM2; hyperglycemia; obese SSI Q6H avoid hypoglycemia Disposition Plan: LTAC Total Time Spent with Patient (Minutes): 35 The high probability of a clinically significant, sudden or life threatening d eterioration of the [multiple] system(s) required my full and direct attention, intervention and personal management. The aggregate critical care time was [35] minutes. This time is in addition to time spent performing reported procedures but includes the following: [x] Data Review and interpretation [x] Patient assessment and monitoring of vital signs [x] Documentation [x] Medication orders and management History Interval history: Patient seen and examined this am, remains on full ventilatory support. Nursing staff, reports some agitation. No other new issues. Hospitalist Physical - Physical exam Narrative exam: General appearance: Present: mild distress, well-nourished, obese, other (sedated) and intubated - EENT Eyes: Present: PERRL, EOM intact ENT: hearing intact - Neck Neck: Present: supple, normal ROM - Respiratory Respiratory: bilateral: diminished - Cardiovascular Rhythm: regular Heart Sounds: Present: S1 & S2 - Extremities Extremity abnormal: edema Peripheral Pulses: within normal limits - Abdominal General gastrointestinal: soft, tender- Abdominal Binder and midline dressing with drainage tubes noted. - Integumentary Integumentary: Present: clear, warm - Psychiatric Psychiatric: cooperative - Allied Health Allied health notes reviewed: nursing, PT, ST, OT, RT, social work, case management - Constitutional Vitals: Temp Pulse Resp BP Pulse Ox 99.5 F 93 H 29 H 136/72 98 01/15/21 07:18 01/15/21 07:35 01/15/21 11:06 01/15/21 07:35 01/15/21 07:35 General appearance: Present: mild distress, well-nourished, obese, other (sedated) HEART Score - HEART Score EKG: Normal Age: < 45 Risk factors: No known risk factors Troponin: Troponin T < 0.010 ng/mL (0.00-0.029) 12/20/20 13:58 Troponin: < normal limit - Critical Actions Critical Actions: 0-3 pts:0.9-1.7%risk of adverse cardiac event.Candidate for discharge Results - Labs CBC & Chem 7: 01/16/21 04:30 01/16/21 04:30 Labs: Laboratory Last Values WBC 12.4 K/mm3 (4.5-11.0) H 01/14/21 05:00 RBC 2.72 M/mm3 (3.65-5.03) L 01/14/21 05:00 Hgb 7.7 gm/dl (11.8-15.2) L 01/14/21 05:00 Hct 23.3 % (35.5-45.6) L 01/14/21 05:00 MCV 86 fl (84-94) 01/14/21 05:00 MCH 28 pg (28-32) 01/14/21 05:00 MCHC 33 % (32-34) 01/14/21 05:00 RDW 17.3 % (13.2-15.2) H 01/14/21 05:00 Plt Count 274 K/mm3 (140-440) 01/14/21 05:00 Lymph % (Auto) 6.5 % (13.4-35.0) L 01/14/21 05:00 Dillon % (Auto) 2.5 % (0.0-7.3) 01/14/21 05:00 Eos % (Auto) 7.7 % (0.0-4.3) H 01/14/21 05:00 Baso % (Auto) 0.6 % (0.0-1.8) 01/14/21 05:00 Lymph # (Auto) 0.8 K/mm3 (1.2-5.4) L 01/14/21 05:00 Dillon # (Auto) 0.3 K/mm3 (0.0-0.8) 01/14/21 05:00 Eos # (Auto) 1.0 K/mm3 (0.0-0.4) H 01/14/21 05:00 Baso # (Auto) 0.1 K/mm3 (0.0-0.1) 01/14/21 05:00 Add Manual Diff Complete 01/10/21 04:01 Total Counted 100 01/10/21 04:01 Seg Neutrophils % 82.7 % (40.0-70.0) H 01/14/21 05:00 Seg Neuts % (Manual) 95.0 % (40.0-70.0) H 01/10/21 04:01 Band Neutrophils % 2.0 % 01/10/21 04:01 Lymphocytes % (Manual) 3.0 % (13.4-35.0) L 01/10/21 04:01 Monocytes % (Manual) 1.0 % (0.0-7.3) 01/09/21 10:10 Metamyelocytes % 1.0 % 01/09/21 10:10 Myelocytes % 1.0 % 01/09/21 10:10 Nucleated RBC % Not Reportable 01/10/21 04:01 Seg Neutrophils # 10.2 K/mm3 (1.8-7.7) H 01/14/21 05:00 Seg Neutrophils # Man 12.0 K/mm3 (1.8-7.7) H 01/10/21 04:01 Band Neutrophils # 0.3 K/mm3 01/10/21 04:01 Lymphocytes # (Manual) 0.4 K/mm3 (1.2-5.4) L 01/10/21 04:01 Abs React Lymphs (Man) 0.0 K/mm3 01/10/21 04:01 Monocytes # (Manual) 0.0 K/mm3 (0.0-0.8) 01/10/21 04:01 Eosinophils # (Manual) 0.0 K/mm3 (0.0-0.4) 01/10/21 04:01 Basophils # (Manual) 0.0 K/mm3 (0.0-0.1) 01/10/21 04:01 Metamyelocytes # 0.0 K/mm3 01/10/21 04:01 Myelocytes # 0.0 K/mm3 01/10/21 04:01 Promyelocytes # 0.0 K/mm3 01/10/21 04:01 Blast Cells # 0.0 K/mm3 01/10/21 04:01 WBC Morphology Not Reportable 01/10/21 04:01 Hypersegmented Neuts Not Reportable 01/10/21 04:01 Hyposegmented Neuts Not Reportable 01/10/21 04:01 Hypogranular Neuts Not Reportable 01/10/21 04:01 Smudge Cells Not Reportable 01/10/21 04:01 Toxic Granulation Not Reportable 01/10/21 04:01 Toxic Vacuolation Not Reportable 01/10/21 04:01 Dohle Bodies Not Reportable 01/10/21 04:01 Pelger-Huet Anomaly Not Reportable 01/10/21 04:01 Mirian Rods Not Reportable 01/10/21 04:01 Platelet Estimate Consistent w auto 01/10/21 04:01 Clumped Platelets Not Reportable 01/10/21 04:01 Plt Clumps, EDTA Not Reportable 01/10/21 04:01 Large Platelets Not Reportable 01/10/21 04:01 Giant Platelets Not Reportable 01/10/21 04:01 Platelet Satelliting Not Reportable 01/10/21 04:01 Plt Morphology Comment Not Reportable 01/10/21 04:01 RBC Morphology Not Reportable 01/10/21 04:01 Dimorphic RBCs Not Reportable 01/10/21 04:01 Polychromasia Not Reportable 01/10/21 04:01 Hypochromasia Few 01/10/21 04:01 Poikilocytosis Not Reportable 01/10/21 04:01 Anisocytosis Few 01/10/21 04:01 Microcytosis Few 01/10/21 04:01 Macrocytosis Not Reportable 01/10/21 04:01 Spherocytes Not Reportable 01/10/21 04:01 Pappenheimer Bodies Not Reportable 01/10/21 04:01 Sickle Cells Not Reportable 01/10/21 04:01 Target Cells Not Reportable 01/10/21 04:01 Tear Drop Cells Not Reportable 01/10/21 04:01 Ovalocytes Not Reportable 01/10/21 04:01 Helmet Cells Not Reportable 01/10/21 04:01 [place] Bodies Not Reportable 01/10/21 04:01 [place] Rings Not Reportable 01/10/21 04:01 Maxwell Cells Not Reportable 01/10/21 04:01 Bite Cells Not Reportable 01/10/21 04:01 Crenated Cell Not Reportable 01/10/21 04:01 Elliptocytes Not Reportable 01/10/21 04:01 Acanthocytes (Spur) Not Reportable 01/10/21 04:01 Rouleaux Not Reportable 01/10/21 04:01 Hemoglobin C Crystals Not Reportable 01/10/21 04:01 Schistocytes Not Reportable 01/10/21 04:01 Malaria parasites Not Reportable 01/10/21 04:01 Dylon Bodies Not Reportable 01/10/21 04:01 Hem Pathologist Commnt No 01/10/21 04:01 PT 15.4 Sec. (12.2-14.9) H 01/10/21 04:01 INR 1.17 (0.87-1.13) H 01/10/21 04:01 APTT 40.2 Sec. (24.2-36.6) H 01/10/21 04:01 Fibrinogen 817 mg/dl (211-480) H 01/10/21 04:01 ABG pH 7.484 (7.320-7.450) H 01/13/21 03:14 POC ABG pCO2 34.8 mmHg (32.0-48.0) 01/13/21 03:14 ABG pCO2 37.9 mm Hg 01/05/21 03:50 POC ABG pO2 104.0 mmHg (83-108) 01/13/21 03:14 ABG pO2 136.8 mm Hg (80.0-90.0) H 01/05/21 03:50 POC ABG HCO3 25.6 01/13/21 03:14 ABG HCO3 22.4 mmol/L (20.0-26.0) 01/05/21 03:50 ABG O2 Saturation 98.3 (0-100) 01/13/21 03:14 ABG O2 Content 9.8 (0.0-44) 01/05/21 03:50 POC ABG Base Excess 2.1 01/13/21 03:14 ABG Base Excess -2.3 mmol/L (-2.0-3.0) L 01/05/21 03:50 ABG Hemoglobin 8.4 (12.0-17.5) L 01/13/21 03:14 ABG Oxyhemoglobin 97.0 (94-98) 01/13/21 03:14 ABG Carboxyhemoglobin 1.5 % (0.0-5.0) 01/05/21 03:50 ABG Methemoglobin 0.3 (0.0-1.5) 01/13/21 03:14 ABG Sodium 134.4 mmol/L (136.0-145.0) L 01/13/21 03:14 ABG Potassium 3.1 mmol/L (3.40-4.50) L 01/13/21 03:14 ABG Chloride 99.0 mmol/L (98-107) 01/13/21 03:14 ABG Glucose 117 mg/dL (65-95) H 01/13/21 03:14 Oxyhemoglobin 96.7 % (95.0-99.0) 01/05/21 03:50 Carboxyhemoglobin 1.0 (0.5-1.5) 01/13/21 03:14 FiO2 50 % 01/05/21 03:50 FiO2 % 35.0 01/13/21 03:14 Sodium 145 mmol/L (137-145) D 01/14/21 05:00 Potassium 3.2 mmol/L (3.6-5.0) L 01/14/21 05:00 Chloride 101.3 mmol/L (98-107) 01/14/21 05:00 Carbon Dioxide 28 mmol/L (22-30) 01/14/21 05:00 Anion Gap 19 mmol/L 01/14/21 05:00 BUN 79 mg/dL (9-20) H 01/14/21 05:00 Creatinine 3.1 mg/dL (0.8-1.3) H 01/14/21 05:00 Estimated GFR 21 ml/min 01/14/21 05:00 BUN/Creatinine Ratio 25 % 01/14/21 05:00 Glucose 88 mg/dL (75-100) 01/14/21 05:00 POC Glucose 96 mg/dL (70-105) 01/15/21 05:18 Lactic Acid 1.70 mmol/L (0.7-2.0) 12/20/20 16:20 Calcium 8.5 mg/dL (8.4-10.2) 01/14/21 05:00 Ionized Calcium 3.3 mg/dL (4.8-5.6) L 12/27/20 14:40 Phosphorus 4.90 mg/dL (2.5-4.5) H 01/12/21 10:00 Magnesium 1.80 mg/dL (1.7-2.3) 01/12/21 10:00 Total Bilirubin 0.50 mg/dL (0.1-1.2) 01/10/21 04:01 AST 22 units/L (5-40) 01/10/21 04:01 ALT 19 units/L (7-56) 01/10/21 04:01 Alkaline Phosphatase 117 units/L (35-129) 01/10/21 04:01 Troponin T < 0.010 ng/mL (0.00-0.029) 12/20/20 13:58 Total Protein 6.2 g/dL (6.3-8.2) L 01/10/21 04:01 Albumin 2.1 g/dL (3.9-5) L 01/10/21 04:01 Albumin/Globulin Ratio 0.5 % 01/10/21 04:01 Triglycerides 153 mg/dL (2-149) H 01/12/21 10:00 Arterial Blood Glucose 117 mg/dL (65-95) H 01/13/21 03:14 Arterial Blood Ionized Calcium 4.5 mg/dL (4.6-5.3) L 01/13/21 03:14 Urine Color Yellow (Yellow) 12/23/20 12:15 Urine Turbidity Cloudy (Clear) 12/23/20 12:15 Urine pH 5.0 (5.0-7.0) 12/23/20 12:15 Ur Specific Greer 1.019 (1.003-1.030) 12/23/20 12:15 Urine Protein <15 mg/dl mg/dL (Negative) 12/23/20 12:15 Urine Glucose (UA) Neg mg/dL (Negative) 12/23/20 12:15 Urine Ketones Neg mg/dL (Negative) 12/23/20 12:15 Urine Blood Sm (Negative) 12/23/20 12:15 Urine Nitrite Neg (Negative) 12/23/20 12:15 Urine Bilirubin Neg (Negative) 12/23/20 12:15 Urine Urobilinogen < 2.0 mg/dL (<2.0) 12/23/20 12:15 Ur Leukocyte Esterase Neg (Negative) 12/23/20 12:15 Urine WBC (Auto) 5.0 /HPF (0.0-6.0) 12/23/20 12:15 Urine RBC (Auto) 2.0 /HPF (0.0-6.0) 12/23/20 12:15 U Epithel Cells (Auto) < 1.0 /HPF (0-13.0) 12/20/20 Unknown Urine Bacteria (Auto) 1+ /HPF (Negative) 12/23/20 12:15 Triple Phos Crystals 2+ 12/23/20 12:15 Hyaline Casts 19 /LPF 12/20/20 Unknown Urine Mucus Few /HPF 12/23/20 12:15 Urine Eosinophils None seen (None Seen) 12/23/20 12:15 Urine Creatinine 78.1 mg/dL (0.1-20.0) H 12/23/20 12:15 Urine Sodium 13 mmol/L 12/23/20 12:15 Fraction Sodium Excret 0.2 12/23/20 12:15 Random Vancomycin 7.9 ug/mL (0-40.0) 12/23/20 12:15 Coronavirus (PCR) Negative (Negative) 12/21/20 Unknown Hepatitis A IgM Ab Non-reactive (NonReactive) 12/30/20 14:40 Hep Bs Antigen Non-reactive (Negative) 12/30/20 14:40 Hep B Core IgM Ab Non-reactive (NonReactive) 12/30/20 14:40 Hepatitis C Antibody Non-reactive (NonReactive) 12/30/20 14:40 Blood Type A NEGATIVE 01/06/21 11:00 Antibody Screen Negative 01/06/21 11:00 Crossmatch See Detail 01/06/21 11:00 Haley/IV: Voiding Method Indwelling Catheter Active Medications - Current Medications Current Medications: Generic Name Dose Route Start Last Admin Trade Name Freq PRN Reason Stop Dose Admin Acetaminophen 650 mg 12/21/20 11:51 12/25/20 20:35 Acetaminophen 650 Mg Rect Supp NJ 650 mg Q4H PRN Administration TEMP >/=100.4 Lipase/Protease/Amylase 1 each 01/07/21 08:44 Lipase 10,500/Protease 25,000/Amylase 43,750 (Units) Dr Cap FEEDTUBE PRN PRN For Clogged Feeding Tube Bisacodyl 10 mg 12/30/20 11:00 01/15/21 11:05 Bisacodyl 10 Mg Rect Supp NJ 10 mg QDAY ASCENCION Administration Dextrose 50 ml 12/24/20 10:49 Dextrose 50% In Water (25gm) 50 Ml Syringe IV Q30MIN PRN Hypoglycemia Protocol Famotidine 20 mg 12/26/20 10:00 01/15/21 11:05 Famotidine 20 Mg/2 Ml Inj IV 20 mg DAILY ASCENCION Administration Fentanyl 1 applic 01/11/21 14:00 01/14/21 09:44 Fentanyl 50 Mcg/Hr Patch 72hr TD 1 applic Q3D ASCENCION Administration Heparin Sodium (Porcine) 5,000 unit 01/06/21 14:00 01/15/21 06:01 Heparin 5,000 Unit/1 Ml Vial SUB-Q 5,000 unit Q8HR ASCENCION Administration Hydromorphone HCl 1 mg 01/11/21 14:00 01/15/21 11:06 Hydromorphone 1 Mg/1 Ml Inj IV 1 mg Q4HR ASCENCION Administration Hydromorphone HCl 0.5 mg 01/12/21 10:10 01/15/21 04:20 Hydromorphone 1 Mg/1 Ml Inj IV 0.5 mg Q4H PRN Administration Pain , Severe (7-10) Hydromorphone HCl 0.25 mg 01/12/21 10:11 01/14/21 20:46 Hydromorphone 1 Mg/1 Ml Inj IV 0.25 mg Q4H PRN Administration Pain, Moderate (4-6) Hydrophilic Ointment 1 applic 12/20/20 21:58 Lip Therapy Vaseline TP Q2HR PRN Dry Lips Propofol 1,000 mg in 100 mls @ 3.606 mls/hr 12/20/20 22:00 01/15/21 07:10 Diprivan 10 Mg/Ml IV 20 mcg/kg/min TITR ASCENCION 14.424 mls/hr Administration Protocol 5 MCG/KG/MIN Sodium Chloride 100 mls @ 999 mls/hr 01/10/21 09:08 Nacl 0.9% IV MARILU PRN Hypotension Nicardipine HCl 50 mg/ Sodium 250 mls @ 25 mls/hr 01/11/21 09:00 01/15/21 04:32 Chloride IV 0 mg/hr TITR ASCENCION 0 mls/hr Titration Protocol 5 MG/HR Dexmedetomidine HCl 1,000 mcg/ 260 mls @ 7.322 mls/hr 01/15/21 01:00 01/15/21 07:00 Sodium Chloride IV 0.8 mcg/kg/hr TITRATE ASCENCION 29.286 mls/hr Administration Protocol 0.2 MCG/KG/HR Insulin Human Regular 0 units 12/28/20 00:00 01/15/21 06:42 Insulin Regular, Human 100 Units/1 Ml SUB-Q Not Given Q6H [facility] Protocol Metoclopramide HCl 5 mg 01/09/21 18:00 01/15/21 11:05 Metoclopramide 10 Mg/2 Ml Inj IV 5 mg Q6HR ASCENCION Administration Metoprolol Tartrate 5 mg 01/14/21 13:37 01/14/21 20:45 Metoprolol Tartrate 5 Mg/5 Ml Inj IV 5 mg Q6H PRN Administration Blood Pressure Multi-Ingred Cream/Lotion/Oil/Oint 1 applic 12/20/20 21:58 01/03/21 01:13 Mineral Oil/Petrolatum, White Ophth Oint 3.5 Gm OU 1 applic Q4HR PRN Administration Dry Eye(s) Ondansetron HCl 4 mg 01/11/21 08:09 Ondansetron 4 Mg/2 Ml Inj IV Q8H PRN Nausea And Vomiting Simple Syrup 15 ml 01/07/21 08:44 Simple Syrup 15 Ml FEEDTUBE PRN PRN Hypoglycemia Simple Syrup 30 ml 01/07/21 08:44 Simple Syrup 15 Ml FEEDTUBE PRN PRN Hypoglycemia Sodium Bicarbonate 325 mg 01/07/21 08:44 Sodium Bicarbonate 325 Mg Tab FEEDTUBE PRN PRN For Clogged Feeding Tube Sodium Chloride 10 ml 12/20/20 22:00 01/14/21 23:18 Sodium Chloride 0.9% 10 Ml Flush Syringe IV 10 ml BID ASCENCION Administration Sodium Chloride 10 ml 12/20/20 16:42 Sodium Chloride 0.9% 10 Ml Flush Syringe IV PRN PRN LINE FLUSH Nutrition/Malnutrition Assess - Dietary Evaluation Nutrition/Malnutrition Findings: Nutrition Notes Start: 12/21/20 09:06 Freq: Status: Active Protocol: Document 01/13/21 09:04 CW (Rec: 01/13/21 09:13 [id number]) Nutrition Notes Initial or Follow up Reassessment Current Diagnosis Acute Kidney Injury,Coronary Artery Disease,Sepsis, Hypertension,Small Bowel Obstruction,Hyperlipidemia Other Pertinent Diagnosis gangrenous small bowel, s/p small bowel ressection, peritonitis Current Diet TPN at 83.33ml/hr + Nepro 40ml /hr Labs/Tests K 3 BUN 69 Cr 2.9 Ca 8 (AdjCa 9.52) Pertinent Medications Propofol at 28.848 ml/hr ( provides 761.6 kcal) Reglan Height 6 ft Weight 132 kg [place] Body Weight (kg) 80.90 BMI 39.4 Weight change and time frame weight change noted. Weight Status Obese Subjective/Other Information F/U TPN need and TF. TF running at 40 ml/hr at this time. No reports of intolerance. MD Cherry verbally okayed descion to d/c TPN. Message relayecd to RN to cut rate in half then d/c TPN. No reports of TF equipment intolerance. Percent of energy/protein needs met: 100% energy 79% pro (CPN only) Burn Absent Trauma Absent Current % PO Negligible Minimum of two criteria No #2 Nutrition Diagnosis Increased nutrient needs ( specify in comment below) Diagnosis Progress(for reassessment Continues documentation) #1 Nutrition Diagnosis Inadequate oral intake Diagnosis Progress(for reassessment Continues documentation) Is patient on ventilator? Yes Is Patient Ambulatory and/or Out of Bed No REE-([facility]-confined to bed) 2611.680 Kcal/Kg value to use for calculation 13 Approximate Energy Requirements Using 1716 kcal/Kg Calculation Used for Recommendations Kcal/kg Additional Notes Pro needs >1.2g/kg adjBW: > 127g/day Fluid needs per MD. Nutrition Intervention Change Diet Order: d/c CPN Continue TF Nutrition Support: Nepro 40 ml/hr is reached. Flush 175 ml q4h or per MD. Kcal 1,728 Protein (gm) 72 Fluid (mL) 779 Goal #1 TF tolerance Goal #2 Meet at least 75% of kcal and protein needs via TF Follow-Up By: 01/16/21 Additional Comments F/U for TF tolerance
[2021-01-15] MEDS: METOPROLOL TARTRATE 5 MG/5 ML INJ IV PRN (12:42)
--- NOTE | 2021-01-15 15:10 | Progress Note ---
Assessment and Plan POD#27 s/p ex lap and small bowel resection for necrotic bowel secondary to incarcerated ventral hernia left with open abdomen. POD#24 s/p abdominal exploration with segmental small bowel resection. abthera placement POD#21 s/p abdominal exploration, small bowel resection for ischemia, abthera placement POD#18 s/p abdominal exploration with small bowel anastamosis and abthera vac placement POD#14 s/p abdomen closure with mesh Plan: 1. Renal failure, continue dialysis per nephrology 2. Respiratory insufficiency, wean to extubation per track service worker 3. Anemia likely due to illness and procedural losses. No clinical signs of identifiable active bleeding. 4. Continue TF as vinny. Transition off TPN per outdoor studies professor 5. Laura drain management as per orders - record output q shift 6. Continue abdominal binder and wound care 7. Rec CT angio Abd if Hb/Hct trends down significantly. Currently stable 8. CM on board for dispo 9. Consider starting on long acting Oxycodone for pain management to help weaning from sedation Continue supportive care. Prognosis Guarded. Subjective Date of service: 01/15/21 Narrative: Pt seen and examined. Asleep on vent but per notes has periods of agitation. Tm 100.3. Vinny TF Objective Vital Signs - 12hr 01/15/21 01/15/21 01/15/21 03:30 03:37 04:00 Temperature 99.2 F Pulse Rate 103 H 108 H 96 H Pulse Rate [ 103 H From Monitor] Respiratory 30 H 35 H Rate Blood Pressure 158/88 158/88 144/74 O2 Sat by Pulse 94 95 98 Oximetry 01/15/21 01/15/21 01/15/21 04:30 05:00 05:30 Temperature Pulse Rate 102 H 94 H 79 Pulse Rate [ From Monitor] Respiratory 26 H 24 24 Rate Blood Pressure 133/73 120/65 103/54 O2 Sat by Pulse 97 91 92 Oximetry 01/15/21 01/15/21 01/15/21 06:00 06:30 06:45 Temperature Pulse Rate 78 79 82 Pulse Rate [ From Monitor] Respiratory 24 24 23 Rate Blood Pressure 104/53 104/56 110/59 O2 Sat by Pulse 93 96 96 Oximetry 01/15/21 01/15/21 01/15/21 07:00 07:15 07:18 Temperature 99.5 F Pulse Rate 86 88 Pulse Rate [ From Monitor] Respiratory 25 H 25 H Rate Blood Pressure 116/65 123/70 O2 Sat by Pulse 99 94 Oximetry 01/15/21 01/15/21 01/15/21 07:30 07:35 07:45 Temperature Pulse Rate 90 93 H 94 H Pulse Rate [ From Monitor] Respiratory 25 H 25 H Rate Blood Pressure 123/70 136/72 136/72 O2 Sat by Pulse 95 98 98 Oximetry 01/15/21 01/15/21 01/15/21 08:00 08:15 08:30 Temperature Pulse Rate 88 87 84 Pulse Rate [ 86 From Monitor] Respiratory 27 H 24 24 Rate Blood Pressure 125/66 125/66 117/65 O2 Sat by Pulse 95 96 95 Oximetry 01/15/21 01/15/21 01/15/21 08:45 09:00 09:15 Temperature Pulse Rate 86 88 92 H Pulse Rate [ From Monitor] Respiratory 25 H 24 22 Rate Blood Pressure 115/64 113/68 129/69 O2 Sat by Pulse 94 97 97 Oximetry 01/15/21 01/15/21 01/15/21 09:30 09:45 10:00 Temperature Pulse Rate 91 H 89 86 Pulse Rate [ From Monitor] Respiratory 23 25 H 18 Rate Blood Pressure 121/61 114/60 121/53 O2 Sat by Pulse 94 92 86 Oximetry 01/15/21 01/15/21 01/15/21 10:15 10:30 10:45 Temperature Pulse Rate 86 88 94 H Pulse Rate [ From Monitor] Respiratory 24 25 H 26 H Rate Blood Pressure 115/59 119/65 128/67 O2 Sat by Pulse 97 98 98 Oximetry 01/15/21 01/15/21 01/15/21 11:00 11:06 11:15 Temperature Pulse Rate 92 H 92 H Pulse Rate [ From Monitor] Respiratory 25 H 29 H 26 H Rate Blood Pressure 125/65 138/63 O2 Sat by Pulse 97 98 Oximetry 01/15/21 01/15/21 01/15/21 11:30 11:44 11:45 Temperature 100.3 F H Pulse Rate 91 H 97 H Pulse Rate [ From Monitor] Respiratory 31 H 29 H Rate Blood Pressure 127/64 134/86 O2 Sat by Pulse 97 93 Oximetry 01/15/21 01/15/21 01/15/21 12:00 12:16 12:30 Temperature 100.3 F H Pulse Rate 96 H 100 H 92 H Pulse Rate [ 104 H From Monitor] Respiratory 29 H 23 28 H Rate Blood Pressure 150/74 152/66 152/66 O2 Sat by Pulse 97 98 98 Oximetry 01/15/21 01/15/21 01/15/21 12:33 12:42 12:46 Temperature Pulse Rate 104 H 100 H Pulse Rate [ From Monitor] Respiratory 29 H 21 Rate Blood Pressure 189/107 189/107 O2 Sat by Pulse 95 Oximetry 01/15/21 01/15/21 01/15/21 13:00 13:03 13:16 Temperature Pulse Rate 92 H 93 H Pulse Rate [ From Monitor] Respiratory 19 30 H 29 H Rate Blood Pressure 169/87 174/82 O2 Sat by Pulse 98 99 Oximetry 01/15/21 01/15/21 01/15/21 13:30 13:46 14:00 Temperature Pulse Rate 93 H 89 94 H Pulse Rate [ From Monitor] Respiratory 18 22 30 H Rate Blood Pressure 180/92 192/99 190/104 O2 Sat by Pulse 97 96 92 Oximetry 01/15/21 01/15/21 14:13 14:16 Temperature Pulse Rate 92 H Pulse Rate [ From Monitor] Respiratory 28 H 26 H Rate Blood Pressure 198/94 O2 Sat by Pulse 97 Oximetry - General physical appearance Narrative Exam: Gen: Sedated on vent. NAD CV: s1, S2+ Resp: on vent Abd: soft, NT, ND. Dressing in place. Laura drain x2 dark serosang in bulb, serous in tubing. Abd binder in place. Ext: generalized edema LAURA drain R: 5cc/24h L: 5cc/24h - Labs 01/14/21 05:00 01/14/21 05:00
--- NOTE | 2021-01-15 16:50 | Progress Note ---
Assessment and Plan Impression * Nonoliguric acute kidney injury secondary to ATN --HD initiated December 30 * Incarcerated hernia with ischemic bowel. Status post bowel resection * Hypernatremia, now with hyponatremia * Fluid overload * Sepsis * Respiratory failure, intubated * Hyperkalemia * Metabolic Acidosis, Gap * Hypoalbuminemia * Anemia Recommendations * Patient with good UOP. BMP not available at time of visit. * Hold HD tomorrow. Monitor for evidence of recovery * Maintain haley cathteter for strict I/O * Transfuse for Hb < 7 * TPN per nutrition/primary * Pressors prn to maintain MAP greater than 65 * Avoid nephrotoxins * Monitor fluid status and electrolytes * Primary and consultants' notes reviewed Subjective Date of service: 01/15/21 Principal diagnosis: SBO and necrosis of large part of small intestine Interval history: No acute events overnight. FiO2 30%, PEEP 6. Objective - Vital Signs Vital signs: Vital Signs - 12hr 01/15/21 01/15/21 01/15/21 05:00 05:30 06:00 Temperature Pulse Rate 94 H 79 78 Pulse Rate [ From Monitor] Respiratory 24 24 24 Rate Blood Pressure 120/65 103/54 104/53 O2 Sat by Pulse 91 92 93 Oximetry 01/15/21 01/15/21 01/15/21 06:30 06:45 07:00 Temperature Pulse Rate 79 82 86 Pulse Rate [ From Monitor] Respiratory 24 23 25 H Rate Blood Pressure 104/56 110/59 116/65 O2 Sat by Pulse 96 96 99 Oximetry 01/15/21 01/15/21 01/15/21 07:15 07:18 07:30 Temperature 99.5 F Pulse Rate 88 90 Pulse Rate [ From Monitor] Respiratory 25 H 25 H Rate Blood Pressure 123/70 123/70 O2 Sat by Pulse 94 95 Oximetry 01/15/21 01/15/21 01/15/21 07:35 07:45 08:00 Temperature Pulse Rate 93 H 94 H 88 Pulse Rate [ 86 From Monitor] Respiratory 25 H 27 H Rate Blood Pressure 136/72 136/72 125/66 O2 Sat by Pulse 98 98 95 Oximetry 01/15/21 01/15/21 01/15/21 08:15 08:30 08:45 Temperature Pulse Rate 87 84 86 Pulse Rate [ From Monitor] Respiratory 24 24 25 H Rate Blood Pressure 125/66 117/65 115/64 O2 Sat by Pulse 96 95 94 Oximetry 01/15/21 01/15/21 01/15/21 09:00 09:15 09:30 Temperature Pulse Rate 88 92 H 91 H Pulse Rate [ From Monitor] Respiratory 24 22 23 Rate Blood Pressure 113/68 129/69 121/61 O2 Sat by Pulse 97 97 94 Oximetry 01/15/21 01/15/21 01/15/21 09:45 10:00 10:15 Temperature Pulse Rate 89 86 86 Pulse Rate [ From Monitor] Respiratory 25 H 18 24 Rate Blood Pressure 114/60 121/53 115/59 O2 Sat by Pulse 92 86 97 Oximetry 01/15/21 01/15/21 01/15/21 10:30 10:45 11:00 Temperature Pulse Rate 88 94 H 92 H Pulse Rate [ From Monitor] Respiratory 25 H 26 H 25 H Rate Blood Pressure 119/65 128/67 125/65 O2 Sat by Pulse 98 98 97 Oximetry 01/15/21 01/15/21 01/15/21 11:06 11:15 11:30 Temperature Pulse Rate 92 H 91 H Pulse Rate [ From Monitor] Respiratory 29 H 26 H 31 H Rate Blood Pressure 138/63 127/64 O2 Sat by Pulse 98 97 Oximetry 01/15/21 01/15/21 01/15/21 11:44 11:45 12:00 Temperature 100.3 F H 100.3 F H Pulse Rate 97 H 96 H Pulse Rate [ 104 H From Monitor] Respiratory 29 H 29 H Rate Blood Pressure 134/86 150/74 O2 Sat by Pulse 93 97 Oximetry 01/15/21 01/15/21 01/15/21 12:16 12:30 12:33 Temperature Pulse Rate 100 H 92 H Pulse Rate [ From Monitor] Respiratory 23 28 H 29 H Rate Blood Pressure 152/66 152/66 O2 Sat by Pulse 98 98 Oximetry 01/15/21 01/15/21 01/15/21 12:42 12:46 13:00 Temperature Pulse Rate 104 H 100 H 92 H Pulse Rate [ From Monitor] Respiratory 21 19 Rate Blood Pressure 189/107 189/107 169/87 O2 Sat by Pulse 95 98 Oximetry 01/15/21 01/15/21 01/15/21 13:03 13:16 13:30 Temperature Pulse Rate 93 H 93 H Pulse Rate [ From Monitor] Respiratory 30 H 29 H 18 Rate Blood Pressure 174/82 180/92 O2 Sat by Pulse 99 97 Oximetry 01/15/21 01/15/21 01/15/21 13:46 14:00 14:13 Temperature Pulse Rate 89 94 H Pulse Rate [ From Monitor] Respiratory 22 30 H 28 H Rate Blood Pressure 192/99 190/104 O2 Sat by Pulse 96 92 Oximetry 01/15/21 01/15/21 01/15/21 14:16 14:30 14:45 Temperature Pulse Rate 92 H 91 H 89 Pulse Rate [ From Monitor] Respiratory 26 H 28 H 29 H Rate Blood Pressure 198/94 163/74 135/74 O2 Sat by Pulse 97 97 94 Oximetry 01/15/21 01/15/21 01/15/21 15:00 15:15 15:36 Temperature Pulse Rate 88 93 H 90 Pulse Rate [ From Monitor] Respiratory 26 H 14 Rate Blood Pressure 137/71 143/78 137/71 O2 Sat by Pulse 95 96 98 Oximetry 01/15/21 01/15/21 15:40 16:00 Temperature 100.6 F H Pulse Rate Pulse Rate [ From Monitor] Respiratory 31 H Rate Blood Pressure O2 Sat by Pulse Oximetry - General Appearance General appearance: well-developed, well-nourished EENT: ATNC, other (ETT in place) Respiratory: Present: Other (coarse BS) Cardiology: regular, S1S2 Gastrointestinal: hypoactive bowel sounds, obese Integumentary: warm and dry Musculoskeletal: other (1+ edema) - Lab 01/14/21 05:00 01/14/21 05:00 Most recent lab results ABG pH 7.484 (7.320-7.450) H 01/13/21 03:14 ABG pCO2 37.9 mm Hg 01/05/21 03:50 ABG pO2 136.8 mm Hg (80.0-90.0) H 01/05/21 03:50 ABG HCO3 22.4 mmol/L (20.0-26.0) 01/05/21 03:50 ABG O2 Saturation 98.3 (0-100) 01/13/21 03:14 Calcium 8.5 mg/dL (8.4-10.2) 01/14/21 05:00 Phosphorus 4.90 mg/dL (2.5-4.5) H 01/12/21 10:00 Magnesium 1.80 mg/dL (1.7-2.3) 01/12/21 10:00 Urine Creatinine 78.1 mg/dL (0.1-20.0) H 12/23/20 12:15 Urine Sodium 13 mmol/L 12/23/20 12:15 Medications & Allergies - Medications Allergies/Adverse Reactions: Allergies Iodinated Contrast Media Adverse Reaction (Verified 09/04/18 14:20) Unknown Home Medications: Home Medications Medication Instructions Recorded Confirmed Last Taken Type Aspirin 81 mg PO DAILY #30 tab.chew 09/08/18 01/04/21 03/31/20 09:28 Rx AtorvaSTATin [Lipitor] 80 mg PO QHS tablet 05/08/19 01/04/21 03/28/20 Rx Albuterol Sulfate [Proventil Hfa] 13.4 gm IH Q6H #1 hfa.aer.ad 04/01/20 01/04/21 Unknown Rx Clopidogrel [Plavix] 75 mg PO DAILY #30 tablet 04/01/20 01/04/21 Unknown Rx Gabapentin 300 mg PO BID@0700,1800 30 Days 04/01/20 01/04/21 Unknown Rx capsule Gabapentin 600 mg PO QHS 30 Days capsule 04/01/20 01/04/21 Unknown Rx Metoprolol [Lopressor TAB] 25 mg PO BID #60 tablet 04/01/20 01/04/21 Unknown Rx [place]-3/Dha/Epa/Fish Oil [[place] 3 1 each PO BID #60 capsule 04/01/20 01/04/21 Unknown Rx 500 Softgel] Tiotropium [place] [Spiriva] 2 puff IH DAILY #30 cap.w.dev 04/01/20 01/04/21 Unknown Rx Ubidecarenone [Co Q-10] 10 mg PO BID #60 tab 04/01/20 01/04/21 03/29/20 Rx cilostazoL [Pletal] 50 mg PO BID 30 Days tablet 04/01/20 01/04/21 Unknown Rx oxyCODONE /ACETAMINOPHEN [Percocet 2 tab PO Q6H PRN tablet 04/01/20 01/04/21 Unknown Rx 5/325 mg] Phosphorus #1 [K-Phos Neutral] 250 mg PO QID 2 Days #8 tablet 09/14/20 01/04/21 Unknown Rx Active Medications: Generic Name Dose Route Start Last Admin Trade Name Freq PRN Reason Stop Dose Admin Acetaminophen 650 mg 12/21/20 11:51 12/25/20 20:35 Acetaminophen [address] 650 mg Q4H PRN Administration TEMP >/=100.4 Lipase/Protease/Amylase 1 each 01/07/21 08:44 Lipase 10,500/Protease 25,000/Amylase 43,750 (Units) Dr Maharaj FEEDTUBE PRN PRN For Clogged Feeding Tube Bisacodyl 10 mg 12/30/20 11:00 01/15/21 11:05 Bisacodyl [address] 10 mg QDAY ASCENCION Administration Dextrose 50 ml 12/24/20 10:49 Dextrose 50% In Water (25gm) 50 Ml Syringe IV Q30MIN PRN Hypoglycemia Protocol Famotidine 20 mg 12/26/20 10:00 01/15/21 11:05 Famotidine 20 Mg/2 Ml Inj IV 20 mg DAILY ASCENCION Administration Fentanyl 1 applic 01/11/21 14:00 01/14/21 09:44 Fentanyl 50 Mcg/Hr Patch 72hr TD 1 applic Q3D ASCENCION Administration Heparin Sodium (Porcine) 5,000 unit 01/06/21 14:00 01/15/21 14:14 Heparin 5,000 Unit/1 Ml Vial SUB-Q 5,000 unit Q8HR ASCENCION Administration Hydromorphone HCl 1 mg 01/11/21 14:00 01/15/21 14:13 Hydromorphone 1 Mg/1 Ml Inj IV 1 mg Q4HR ASCENCION Administration Hydromorphone HCl 0.5 mg 01/12/21 10:10 01/15/21 12:33 Hydromorphone 1 Mg/1 Ml Inj IV 0.5 mg Q4H PRN Administration Pain , Severe (7-10) Hydromorphone HCl 0.25 mg 01/12/21 10:11 01/15/21 15:40 Hydromorphone 1 Mg/1 Ml Inj IV 0.25 mg Q4H PRN Administration Pain, Moderate (4-6) Hydrophilic Ointment 1 applic 12/20/20 21:58 Lip Therapy Vaseline TP Q2HR PRN Dry Lips Propofol 1,000 mg in 100 mls @ 3.606 mls/hr 12/20/20 22:00 01/15/21 13:53 Diprivan 10 Mg/Ml IV 35 mcg/kg/min TITR ASCENCION 25.242 mls/hr Administration Protocol 5 MCG/KG/MIN Sodium Chloride 100 mls @ 999 mls/hr 01/10/21 09:08 Nacl 0.9% IV MARILU PRN Hypotension Nicardipine HCl 50 mg/ Sodium 250 mls @ 25 mls/hr 01/11/21 09:00 01/15/21 04:32 Chloride IV 0 mg/hr TITR ASCENCION 0 mls/hr Titration Protocol 5 MG/HR Dexmedetomidine HCl 1,000 mcg/ 260 mls @ 7.322 mls/hr 01/15/21 01:00 01/15/21 15:33 Sodium Chloride IV 1.2 mcg/kg/hr TITRATE ASCENCION 43.93 mls/hr Administration Protocol 0.2 MCG/KG/HR Insulin Human Regular 0 units 12/28/20 00:00 01/15/21 11:23 Insulin Regular, Human 100 Units/1 Ml SUB-Q Not Given Q6H [facility] Protocol Metoclopramide HCl 5 mg 01/09/21 18:00 01/15/21 11:05 Metoclopramide 10 Mg/2 Ml Inj IV 5 mg Q6HR ASCENCION Administration Metoprolol Tartrate 5 mg 01/14/21 13:37 01/15/21 12:42 Metoprolol Tartrate 5 Mg/5 Ml Inj IV 5 mg Q6H PRN Administration Blood Pressure Multi-Ingred Cream/Lotion/Oil/Oint 1 applic 12/20/20 21:58 01/03/21 01:13 Mineral Oil/Petrolatum, White Ophth Oint 3.5 Gm OU 1 applic Q4HR PRN Administration Dry Eye(s) Ondansetron HCl 4 mg 01/11/21 08:09 Ondansetron 4 Mg/2 Ml Inj IV Q8H PRN Nausea And Vomiting Simple Syrup 15 ml 01/07/21 08:44 Simple Syrup 15 Ml FEEDTUBE PRN PRN Hypoglycemia Simple Syrup 30 ml 01/07/21 08:44 Simple Syrup 15 Ml FEEDTUBE PRN PRN Hypoglycemia Sodium Bicarbonate 325 mg 01/07/21 08:44 Sodium Bicarbonate 325 Mg Tab FEEDTUBE PRN PRN For Clogged Feeding Tube Sodium Chloride 10 ml 12/20/20 22:00 01/15/21 11:22 Sodium Chloride 0.9% 10 Ml Flush Syringe IV 10 ml BID ASCENCION Administration Sodium Chloride 10 ml 12/20/20 16:42 Sodium Chloride 0.9% 10 Ml Flush Syringe IV PRN PRN LINE FLUSH
[2021-01-16] MEDS: HYDROmorphone 1 MG/1 ML INJ IV SCH ×6 (01:20→22:16)
[2021-01-16 04:51] LABS: Hematocrit 22.6 % (35.5-45.6); Hemoglobin 7.6 gm/dl (11.8-15.2); Mean Corpuscular HGB Conc 34 % (32-34); Mean Corpuscular Volume 86 fl (84-94); Platelet Count 260 K/mm3 (140-440); Red Blood Count 2.62 M/mm3 (3.65-5.03); Red Cell Distribution Width 17.3 % (13.2-15.2)
[2021-01-16] MEDS: dexmedeTOMIDine 1,000 MCG in SODIUM CHLORIDE 0.9% 250ML 250 ML IV SCH ×3 (05:05→20:24)
[2021-01-16] MEDS: ACETAMINOPHEN 325 MG/10.15 ML ORAL LIQD UNIT DOSE FEEDTUBE PRN ×3 (05:06→19:49)
[2021-01-16 05:10] LABS: Albumin 2.1 g/dL (3.9-5); Calcium 8.4 mg/dL (8.4-10.2)
[2021-01-16] MEDS: HEPARIN 5,000 UNIT/1 ML VIAL SUB-Q SCH ×3 (05:44→22:17)
[2021-01-16] MEDS: INSULIN REGULAR, HUMAN 100 UNITS/1 ML SUB-Q SCH ×5 (06:05→23:28)
[2021-01-16] MEDS: METOCLOPRAMIDE 10 MG/2 ML INJ IV SCH ×3 (06:05→12:26)
[2021-01-16] MEDS: POTASSIUM CHLORIDE 10 MEQ 10 MEQ/100 ML BAG IV SCH ×2 (07:09→08:10)
[2021-01-16] MEDS: FAMOTIDINE 20 MG/2 ML INJ IV SCH (09:05)
--- NOTE | 2021-01-16 10:12 | Progress Note ---
Assessment and Plan Impression * Nonoliguric acute kidney injury secondary to ATN --HD initiated December 30 * Incarcerated hernia with ischemic bowel. Status post bowel resection * Hypernatremia, now with hyponatremia * Fluid overload * Sepsis * Respiratory failure, intubated * Hyperkalemia * Metabolic Acidosis, Gap * Hypoalbuminemia * Anemia Recommendations * Patient with good UOP. * Serum creatinine is also trending down. Shall hold dialysis for today. Monitor for renal recovery * Patient seems to be in diuretic phase of ATN. Would recommend maintaining Lawrence catheter for now * Transfuse for Hb < 7 * TPN per nutrition/primary * Pressors prn to maintain MAP greater than 65 * Avoid nephrotoxins * Monitor fluid status and electrolytes * Replace potassium Subjective Date of service: 01/16/21 Principal diagnosis: SBO and necrosis of large part of small intestine Interval history: Patient remains in the ICU. On 30% FiO2. Oxygen saturation is 96%. Sedated. Objective - Vital Signs Vital signs: Vital Signs - 12hr 01/15/21 01/15/21 01/15/21 22:15 22:30 22:45 Temperature Pulse Rate 92 H 89 93 H Pulse Rate [ From Monitor] Respiratory 25 H 24 26 H Rate Blood Pressure 135/59 129/59 137/68 O2 Sat by Pulse 96 96 97 Oximetry 01/15/21 01/15/21 01/15/21 23:00 23:15 23:30 Temperature Pulse Rate 88 88 91 H Pulse Rate [ From Monitor] Respiratory 25 H 25 H 25 H Rate Blood Pressure 118/56 116/56 129/65 O2 Sat by Pulse 97 97 97 Oximetry 01/15/21 01/15/21 01/16/21 23:34 23:45 00:00 Temperature 100.9 F H Pulse Rate 87 88 87 Pulse Rate [ 87 From Monitor] Respiratory 23 25 H Rate Blood Pressure 116/56 126/60 120/58 O2 Sat by Pulse 97 97 97 Oximetry 01/16/21 01/16/21 01/16/21 00:15 00:30 00:45 Temperature Pulse Rate 86 86 85 Pulse Rate [ From Monitor] Respiratory 25 H 25 H 24 Rate Blood Pressure 118/55 116/55 118/53 O2 Sat by Pulse 96 96 96 Oximetry 01/16/21 01/16/21 01/16/21 01:00 01:15 01:30 Temperature Pulse Rate 89 91 H 91 H Pulse Rate [ From Monitor] Respiratory 27 H 28 H 29 H Rate Blood Pressure 130/63 140/63 141/65 O2 Sat by Pulse 97 97 96 Oximetry 01/16/21 01/16/21 01/16/21 01:45 02:00 02:15 Temperature Pulse Rate 93 H 92 H 92 H Pulse Rate [ From Monitor] Respiratory 27 H 27 H 28 H Rate Blood Pressure 142/65 142/67 144/66 O2 Sat by Pulse 96 97 96 Oximetry 01/16/21 01/16/21 01/16/21 02:30 02:45 03:00 Temperature Pulse Rate 94 H 94 H 92 H Pulse Rate [ From Monitor] Respiratory 27 H 30 H 26 H Rate Blood Pressure 143/64 147/67 146/66 O2 Sat by Pulse 94 96 96 Oximetry 01/16/21 01/16/21 01/16/21 03:15 03:30 03:35 Temperature Pulse Rate 89 92 H 93 H Pulse Rate [ From Monitor] Respiratory 27 H 28 H Rate Blood Pressure 131/63 144/63 131/63 O2 Sat by Pulse 96 94 94 Oximetry 01/16/21 01/16/21 01/16/21 03:45 03:50 04:00 Temperature 102.7 F H Pulse Rate 92 H 97 H Pulse Rate [ 92 H From Monitor] Respiratory 26 H 32 H Rate Blood Pressure 152/66 144/68 O2 Sat by Pulse 95 96 Oximetry 01/16/21 01/16/21 01/16/21 04:15 04:30 04:45 Temperature Pulse Rate 92 H 90 95 H Pulse Rate [ From Monitor] Respiratory 29 H 29 H 32 H Rate Blood Pressure 135/66 149/73 154/66 O2 Sat by Pulse 95 97 96 Oximetry 01/16/21 01/16/21 01/16/21 05:00 05:15 05:30 Temperature Pulse Rate 93 H 96 H 92 H Pulse Rate [ From Monitor] Respiratory 27 H 33 H 29 H Rate Blood Pressure 136/62 146/86 146/71 O2 Sat by Pulse 97 96 96 Oximetry 01/16/21 01/16/21 01/16/21 05:45 06:00 06:15 Temperature Pulse Rate 95 H 94 H 88 Pulse Rate [ From Monitor] Respiratory 30 H 31 H 26 H Rate Blood Pressure 134/71 139/74 129/67 O2 Sat by Pulse 94 95 95 Oximetry 01/16/21 01/16/21 01/16/21 06:30 06:45 07:00 Temperature 102.7 F H Pulse Rate 92 H 86 87 Pulse Rate [ From Monitor] Respiratory 17 26 H 28 H Rate Blood Pressure 126/64 128/63 121/61 O2 Sat by Pulse 96 95 95 Oximetry 01/16/21 01/16/21 01/16/21 07:15 07:30 07:45 Temperature Pulse Rate 88 86 82 Pulse Rate [ From Monitor] Respiratory 27 H 25 H 26 H Rate Blood Pressure 130/65 111/54 118/56 O2 Sat by Pulse 96 96 96 Oximetry 01/16/21 01/16/21 01/16/21 08:00 08:15 08:25 Temperature Pulse Rate 82 80 82 Pulse Rate [ 82 From Monitor] Respiratory 25 H 26 H Rate Blood Pressure 129/64 114/55 112/64 O2 Sat by Pulse 96 96 96 Oximetry 01/16/21 01/16/21 01/16/21 08:30 08:45 09:00 Temperature Pulse Rate 83 87 85 Pulse Rate [ From Monitor] Respiratory 25 H 28 H 29 H Rate Blood Pressure 112/64 129/68 133/67 O2 Sat by Pulse 96 93 96 Oximetry 01/16/21 01/16/21 09:15 09:30 Temperature Pulse Rate 89 87 Pulse Rate [ From Monitor] Respiratory 29 H 29 H Rate Blood Pressure 120/75 136/69 O2 Sat by Pulse 96 96 Oximetry - General Appearance General appearance: well-developed, well-nourished, appears stated age, intubated EENT: PERRL, mucous membranes moist Neck: no JVD Respiratory: Present: Clear to Ascultation Cardiology: regular, normal heart rate Gastrointestinal: other (Abdominal binder in place) Integumentary: other (1+ edema) - Lab 01/16/21 04:30 01/16/21 04:30 Most recent lab results ABG pH 7.484 (7.320-7.450) H 01/13/21 03:14 ABG pCO2 37.9 mm Hg 01/05/21 03:50 ABG pO2 136.8 mm Hg (80.0-90.0) H 01/05/21 03:50 ABG HCO3 22.4 mmol/L (20.0-26.0) 01/05/21 03:50 ABG O2 Saturation 98.3 (0-100) 01/13/21 03:14 Calcium 8.4 mg/dL (8.4-10.2) 01/16/21 04:30 Phosphorus 4.90 mg/dL (2.5-4.5) H 01/12/21 10:00 Magnesium 1.80 mg/dL (1.7-2.3) 01/12/21 10:00 Urine Creatinine 78.1 mg/dL (0.1-20.0) H 12/23/20 12:15 Urine Sodium 13 mmol/L 12/23/20 12:15 Medications & Allergies - Medications Allergies/Adverse Reactions: Allergies Iodinated Contrast Media Adverse Reaction (Verified 09/04/18 14:20) Unknown Home Medications: Home Medications Medication Instructions Recorded Confirmed Last Taken Type Aspirin 81 mg PO DAILY #30 tab.chew 09/08/18 01/04/21 03/31/20 09:28 Rx AtorvaSTATin [Lipitor] 80 mg PO QHS tablet 05/08/19 01/04/21 03/28/20 Rx Albuterol Sulfate [Proventil Hfa] 13.4 gm IH Q6H #1 hfa.aer.ad 04/01/20 01/04/21 Unknown Rx Clopidogrel [Plavix] 75 mg PO DAILY #30 tablet 04/01/20 01/04/21 Unknown Rx Gabapentin 300 mg PO BID@0700,1800 30 Days 04/01/20 01/04/21 Unknown Rx capsule Gabapentin 600 mg PO QHS 30 Days capsule 04/01/20 01/04/21 Unknown Rx Metoprolol [Lopressor TAB] 25 mg PO BID #60 tablet 04/01/20 01/04/21 Unknown Rx [place]-3/Dha/Epa/Fish Oil [[place] 3 1 each PO BID #60 capsule 04/01/20 01/04/21 Unknown Rx 500 Softgel] Tiotropium [place] [Spiriva] 2 puff IH DAILY #30 cap.w.dev 04/01/20 01/04/21 Unknown Rx Ubidecarenone [Co Q-10] 10 mg PO BID #60 tab 04/01/20 01/04/21 03/29/20 Rx cilostazoL [Pletal] 50 mg PO BID 30 Days tablet 04/01/20 01/04/21 Unknown Rx oxyCODONE /ACETAMINOPHEN [Percocet 2 tab PO Q6H PRN tablet 04/01/20 01/04/21 Unknown Rx 5/325 mg] Phosphorus #1 [K-Phos Neutral] 250 mg PO QID 2 Days #8 tablet 09/14/20 01/04/21 Unknown Rx Active Medications: Generic Name Dose Route Start Last Admin Trade Name Freq PRN Reason Stop Dose Admin Acetaminophen 650 mg 01/16/21 03:57 01/16/21 05:06 Acetaminophen 325 Mg/10.15 Ml Oral Liqd Unit Dose FEEDTUBE 650 mg Q6H PRN Administration Non Cardiac Pain or Temp>100.5 Lipase/Protease/Amylase 1 each 01/07/21 08:44 Lipase 10,500/Protease 25,000/Amylase 43,750 (Units) Dr Maharaj FEEDTUBE PRN PRN For Clogged Feeding Tube Bisacodyl 10 mg 12/30/20 11:00 01/16/21 09:05 Bisacodyl 10 Mg Rect Supp MD 10 mg QDAY ASCENCION Administration Dextrose 50 ml 12/24/20 10:49 Dextrose 50% In Water (25gm) 50 Ml Syringe IV Q30MIN PRN Hypoglycemia Protocol Famotidine 20 mg 12/26/20 10:00 01/16/21 09:05 Famotidine 20 Mg/2 Ml Inj IV 20 mg DAILY ASCENCION Administration Fentanyl 1 applic 01/11/21 14:00 01/14/21 09:44 Fentanyl 50 Mcg/Hr Patch 72hr TD 1 applic Q3D ASCENCION Administration Heparin Sodium (Porcine) 5,000 unit 01/06/21 14:00 01/16/21 05:44 Heparin 5,000 Unit/1 Ml Vial SUB-Q 5,000 unit Q8HR ASCENCION Administration Hydromorphone HCl 1 mg 01/11/21 14:00 01/16/21 09:05 Hydromorphone 1 Mg/1 Ml Inj IV 1 mg Q4HR ASCENCION Administration Hydromorphone HCl 0.5 mg 01/12/21 10:10 01/15/21 12:33 Hydromorphone 1 Mg/1 Ml Inj IV 0.5 mg Q4H PRN Administration Pain , Severe (7-10) Hydromorphone HCl 0.25 mg 01/12/21 10:11 01/15/21 15:40 Hydromorphone 1 Mg/1 Ml Inj IV 0.25 mg Q4H PRN Administration Pain, Moderate (4-6) Hydrophilic Ointment 1 applic 12/20/20 21:58 Lip Therapy Vaseline TP Q2HR PRN Dry Lips Propofol 1,000 mg in 100 mls @ 3.606 mls/hr 12/20/20 22:00 01/16/21 09:52 Diprivan 10 Mg/Ml IV 15 mcg/kg/min TITR ASCENCION 10.818 mls/hr Administration Protocol 5 MCG/KG/MIN Sodium Chloride 100 mls @ 999 mls/hr 01/10/21 09:08 Nacl 0.9% IV MARILU PRN Hypotension Nicardipine HCl 50 mg/ Sodium 250 mls @ 25 mls/hr 01/11/21 09:00 01/15/21 04:32 Chloride IV 0 mg/hr TITR ASCENCION 0 mls/hr Titration Protocol 5 MG/HR Dexmedetomidine HCl 1,000 mcg/ 260 mls @ 7.322 mls/hr 01/15/21 01:00 01/16/21 05:05 Sodium Chloride IV 1.2 mcg/kg/hr TITRATE ASCENCION 43.93 mls/hr Administration Protocol 0.2 MCG/KG/HR Insulin Human Regular 0 units 12/28/20 00:00 01/16/21 06:05 Insulin Regular, Human 100 Units/1 Ml SUB-Q Not Given Q6H ASCENCION Protocol Metoclopramide HCl 5 mg 01/09/21 18:00 01/16/21 06:05 Metoclopramide 10 Mg/2 Ml Inj IV 01/16/21 17:59 5 mg Q6HR ASCENCION Administration Metoprolol Tartrate 5 mg 01/14/21 13:37 01/15/21 12:42 Metoprolol Tartrate 5 Mg/5 Ml Inj IV 5 mg Q6H PRN Administration SBP >/=160 Multi-Ingred Cream/Lotion/Oil/Oint 1 applic 12/20/20 21:58 01/03/21 01:13 Mineral Oil/Petrolatum, White Ophth Oint 3.5 Gm OU 1 applic Q4HR PRN Administration Dry Eye(s) Ondansetron HCl 4 mg 01/11/21 08:09 Ondansetron 4 Mg/2 Ml Inj IV Q8H PRN Nausea And Vomiting Simple Syrup 15 ml 01/07/21 08:44 Simple Syrup 15 Ml FEEDTUBE PRN PRN Hypoglycemia Simple Syrup 30 ml 01/07/21 08:44 Simple Syrup 15 Ml FEEDTUBE PRN PRN Hypoglycemia Sodium Bicarbonate 325 mg 01/07/21 08:44 Sodium Bicarbonate 325 Mg Tab FEEDTUBE PRN PRN For Clogged Feeding Tube Sodium Chloride 10 ml 12/20/20 22:00 01/16/21 09:05 Sodium Chloride 0.9% 10 Ml Flush Syringe IV 10 ml BID ASCENCION Administration Sodium Chloride 10 ml 12/20/20 16:42 Sodium Chloride 0.9% 10 Ml Flush Syringe IV PRN PRN LINE FLUSH
[2021-01-16] MEDS: HYDROmorphone 1 MG/1 ML INJ IV PRN (10:16)
[2021-01-16] MEDS ORDERED: VANCOMYCIN 1,750 MG in SODIUM CHLORIDE 0.9% 500 ML 500 ML IV ONE (11:30)
--- NOTE | 2021-01-16 11:30 | Progress Note ---
Assessment and Plan Cultures: 12/20/2020 blood culture: No growth 12/20/2020 urine culture: Usual skin giorgio 12/20/2020 tracheal aspirate culture: Mucor 01/16/2021 blood culture: In process A/P: 60-year-old male with obesity, hypertension, tobacco abuse, coronary artery disease, admitted to the hospital on 12/20/2020 with: #Fever, new sepsis: Source unclear. #Initial septic shock: Resolved. Secondary to intra-abdominal source, perit onitis. Patient with necrotic bowel secondary to incarcerated ventral hernia. Status post exploratory laparotomy, extensive adhesiolysis, small bowel resection and peritoneal lavage along with ABThera VAC placement on 12/20/2020, replacement 12/29/2020. Off pressors. Last surgery abdomen closure with mesh 01/02/2021. Repeat CT 01/09/21 with large organized but bland appearing reactive fluid collection in anterior abdomen - seroma v/s hematoma. #JONI: Renally dose antibiotics. Was requiring hemodialysis, nephrology following. #Morbid obesity #Mucor in tracheal aspirate is likely colonization. No treatment needed currently. Recs: -Follow-up blood cultures, chest x-ray, UA -Empiric cefepime, vancomycin and fluconazole ordered, renally dosed Lissette Rizzo MD, FACP [facility] ([facility] O: [phone] F: [phone] Subjective Date of service: 01/16/21 Principal diagnosis: SBO and necrosis of large part of small intestine Interval history: Patient has started spiking fevers up to 102.7 F. Had low-grade fevers yesterday. Blood cultures were ordered. Objective - Exam Narrative Exam: Physical Exam: Constitutional: sedated, intubated, on the vent Head, Ears, Nose: Normocephalic, atraumatic. External ears, nose normal Eyes: Conjunctivae/corneas clear. No icterus. No ptosis. Neck: intubated Oral: intubated Cardiovascular: S1, S2 + Respiratory: AE fair bilaterally and equal GI: midline dressing + bowel sounds + drains + Musculoskeletal: scrotal edema Skin: No rash or abscess Hem/Lymphatic: No palpable cervical or supraclavicular nodes. No lymphangitis Psych: no agitation Neurological: sedated, intubated, on the vent, exam limited - Constitutional Vitals: Vital Signs Temp Pulse Resp BP Pulse Ox 102.7 F H 97 H 32 H 167/78 96 01/16/21 07:00 01/16/21 11:15 01/16/21 11:15 01/16/21 11:15 01/16/21 11:15 Temperature -Last 24 Hours Temperature 102.7 F Temperature 102.7 F Temperature 100.9 F Temperature 100.7 F Temperature 100.6 F Temperature 100.3 F Temperature 100.3 F - Labs CBC & Chem 7: 01/16/21 04:30 01/16/21 04:30 Labs: Abnormal lab results 01/16/21 01/16/21 Range/Units 04:30 04:30 RBC 2.62 L (3.65-5.03) M/mm3 Hgb 7.6 L (11.8-15.2) gm/dl Hct 22.6 L (35.5-45.6) % RDW 17.3 H (13.2-15.2) % Sodium 146 H (137-145) mmol/L Potassium 2.9 L* (3.6-5.0) mmol/L BUN 58 H (9-20) mg/dL Creatinine 2.4 H (0.8-1.3) mg/dL Glucose 101 H (75-100) mg/dL Albumin 2.1 L (3.9-5) g/dL
--- NOTE | 2021-01-16 11:31 | Progress Note ---
Assessment and Plan 60 y/o male with abdominal catastrophe, s/p ex-lap with open abdomen, ventilated for pain control and support. 01/16/21: Follow up blood cultures from last night. need to send ua as well. Renal holding HD today, hopeful patient is in the diuretic phase of ATN. Will have RT place patient on PSV trial today to see how he does. Hold on abx therapy for right now. If cultures come back positive, will need to remove right IJ vascath which was just placed on Saturday at the suggestion of infection control and infectious days. completed letter for insurance for patient today, hopeful will be LTACH approved soon. 01/13/21: Place IJ vascath today. Added PRN dilaudid on lebron of scheduled dilaudid. Goal is to not put patient back on continuous drip for pain so that we can facilitate weaning. needs peer to peer for LTACH approval. Continue supportive measures. 01/12/21: Patient getting dialysis today. Continue to control pain, added PRN dilauded on top of scheduled dosing as patient still gets very agitated off diprovan. Will discuss with renal plans for future HD as ID and Infection control are very concerned about the groin catheter. If permanent dialysis then will ask that IR place permcath. if they feel intermittent, then will place IJ and remove femoral vascath. 01/11/21: Will increase pain regimen. Scheduled the dilaudid to q4 and add a fent patch. Would like to avoid drip as we are trying to actively wean patient from mechanical ventilation. Spoke with ALESSANDRA who states LTACH has accepted patient but we are waiting on insurance authorization. HgB is stable this am and reviewed surgery and IR recs. I do no think the area of fluid needs to be sampled. 01/10/21: Spoke with surgery this am about CT findings. Will discuss with IR their thoughts on fluid. Not concerned about infection in that area. Main reason for CT was to see if we could figure out where blood was going as it was coming out of his bottom or NG contents. This is appears to be something small and slow, like a venous issues. Hopefully it has sealed off at this time. HgB is up to 8 this am patient did not get blood on yesterday. Off fent now, will continue to wean Diprovan and Precedex as tolerated. Spoke with ALESSANDRA and asked to send out to LTACH's but will steal try to aggressively wean. Making good urine, hopeful kidney's will recover. Will ask renal about other ways to remove volume in third spacing (albumin, lasix etc). Prognosis still remains guarded. Continue TPN for now. 01/09/21: Will obtain contrasted CT of abdomen and pelvis to look for potential pockets of blood or bleeding. Spoke with renal and they feel kidneys are recovering but ok with HD tomorrow if needed post dye load. Will attempt to wean Fent more and use prn dilaudid. Will start reglan to help with gut motility. Hopeful to be off TPN soon. Once sedation is off, can start SBT's. CCT 31 minutes. Subjective Date of service: 01/16/21 Principal diagnosis: SBO and necrosis of large part of small intestine Interval history: Pt awake and alert. Nodding appropriately as he is intubated. Sedation off and patient is in mitten restraints. Good Urine output in the last 48 hours. Febrile last night to 102.7. Cultured. Objective Vital Signs - 12hr 01/15/21 01/15/21 01/15/21 23:30 23:34 23:45 Temperature Pulse Rate 91 H 87 88 Pulse Rate [ From Monitor] Respiratory 25 H 23 Rate Blood Pressure 129/65 116/56 126/60 O2 Sat by Pulse 97 97 97 Oximetry 01/16/21 01/16/21 01/16/21 00:00 00:15 00:30 Temperature 100.9 F H Pulse Rate 87 86 86 Pulse Rate [ 87 From Monitor] Respiratory 25 H 25 H 25 H Rate Blood Pressure 120/58 118/55 116/55 O2 Sat by Pulse 97 96 96 Oximetry 01/16/21 01/16/21 01/16/21 00:45 01:00 01:15 Temperature Pulse Rate 85 89 91 H Pulse Rate [ From Monitor] Respiratory 24 27 H 28 H Rate Blood Pressure 118/53 130/63 140/63 O2 Sat by Pulse 96 97 97 Oximetry 01/16/21 01/16/21 01/16/21 01:30 01:45 02:00 Temperature Pulse Rate 91 H 93 H 92 H Pulse Rate [ From Monitor] Respiratory 29 H 27 H 27 H Rate Blood Pressure 141/65 142/65 142/67 O2 Sat by Pulse 96 96 97 Oximetry 01/16/21 01/16/21 01/16/21 02:15 02:30 02:45 Temperature Pulse Rate 92 H 94 H 94 H Pulse Rate [ From Monitor] Respiratory 28 H 27 H 30 H Rate Blood Pressure 144/66 143/64 147/67 O2 Sat by Pulse 96 94 96 Oximetry 01/16/21 01/16/21 01/16/21 03:00 03:15 03:30 Temperature Pulse Rate 92 H 89 92 H Pulse Rate [ From Monitor] Respiratory 26 H 27 H 28 H Rate Blood Pressure 146/66 131/63 144/63 O2 Sat by Pulse 96 96 94 Oximetry 01/16/21 01/16/21 01/16/21 03:35 03:45 03:50 Temperature 102.7 F H Pulse Rate 93 H 92 H Pulse Rate [ From Monitor] Respiratory 26 H Rate Blood Pressure 131/63 152/66 O2 Sat by Pulse 94 95 Oximetry 01/16/21 01/16/21 01/16/21 04:00 04:15 04:30 Temperature Pulse Rate 97 H 92 H 90 Pulse Rate [ 92 H From Monitor] Respiratory 32 H 29 H 29 H Rate Blood Pressure 144/68 135/66 149/73 O2 Sat by Pulse 96 95 97 Oximetry 01/16/21 01/16/21 01/16/21 04:45 05:00 05:15 Temperature Pulse Rate 95 H 93 H 96 H Pulse Rate [ From Monitor] Respiratory 32 H 27 H 33 H Rate Blood Pressure 154/66 136/62 146/86 O2 Sat by Pulse 96 97 96 Oximetry 01/16/21 01/16/21 01/16/21 05:30 05:45 06:00 Temperature Pulse Rate 92 H 95 H 94 H Pulse Rate [ From Monitor] Respiratory 29 H 30 H 31 H Rate Blood Pressure 146/71 134/71 139/74 O2 Sat by Pulse 96 94 95 Oximetry 01/16/21 01/16/21 01/16/21 06:15 06:30 06:45 Temperature Pulse Rate 88 92 H 86 Pulse Rate [ From Monitor] Respiratory 26 H 17 26 H Rate Blood Pressure 129/67 126/64 128/63 O2 Sat by Pulse 95 96 95 Oximetry 01/16/21 01/16/21 01/16/21 07:00 07:15 07:30 Temperature 102.7 F H Pulse Rate 87 88 86 Pulse Rate [ From Monitor] Respiratory 28 H 27 H 25 H Rate Blood Pressure 121/61 130/65 111/54 O2 Sat by Pulse 95 96 96 Oximetry 01/16/21 01/16/21 01/16/21 07:45 08:00 08:15 Temperature Pulse Rate 82 82 80 Pulse Rate [ 82 From Monitor] Respiratory 26 H 25 H 26 H Rate Blood Pressure 118/56 129/64 114/55 O2 Sat by Pulse 96 96 96 Oximetry 01/16/21 01/16/21 01/16/21 08:25 08:30 08:45 Temperature Pulse Rate 82 83 87 Pulse Rate [ From Monitor] Respiratory 25 H 28 H Rate Blood Pressure 112/64 112/64 129/68 O2 Sat by Pulse 96 96 93 Oximetry 01/16/21 01/16/21 01/16/21 09:00 09:15 09:30 Temperature Pulse Rate 85 89 87 Pulse Rate [ From Monitor] Respiratory 29 H 29 H 29 H Rate Blood Pressure 133/67 120/75 136/69 O2 Sat by Pulse 96 96 96 Oximetry 01/16/21 01/16/21 01/16/21 09:45 10:00 10:15 Temperature Pulse Rate 86 101 H 95 H Pulse Rate [ From Monitor] Respiratory 28 H 41 H 29 H Rate Blood Pressure 145/72 148/79 154/75 O2 Sat by Pulse 96 98 96 Oximetry 01/16/21 01/16/21 01/16/21 10:20 10:30 10:45 Temperature Pulse Rate 102 H 100 H 104 H Pulse Rate [ From Monitor] Respiratory 64 H 42 H 26 H Rate Blood Pressure 164/85 164/85 166/86 O2 Sat by Pulse 97 96 96 Oximetry 01/16/21 01/16/21 11:09 11:15 Temperature Pulse Rate 98 H 97 H Pulse Rate [ From Monitor] Respiratory 33 H 32 H Rate Blood Pressure 167/78 O2 Sat by Pulse 95 96 Oximetry Constitutional: comatose (secondary to sedation.), other (critically ill on ventilator) Eyes: non-icteric ENT: oropharynx moist Neck: supple Effort: normal Ascultation: Bilateral: other (coarse BS bilaterally) Cardiovascular: other (tachy, RR; no mrg) Gastrointestinal: other (abdomen open) Integumentary: normal Extremities: no cyanosis, no edema, pink and warm Neurologic: other (sedated) CBC and BMP: 01/16/21 04:30 01/16/21 04:30 ABG, PT/INR, D-dimer: ABG ABG pH 7.484 (7.320-7.450) H 01/13/21 03:14 POC ABG pCO2 34.8 mmHg (32.0-48.0) 01/13/21 03:14 ABG pCO2 37.9 mm Hg 01/05/21 03:50 POC ABG pO2 104.0 mmHg (83-108) 01/13/21 03:14 ABG pO2 136.8 mm Hg (80.0-90.0) H 01/05/21 03:50 POC ABG HCO3 25.6 01/13/21 03:14 ABG O2 Saturation 98.3 (0-100) 01/13/21 03:14 PT/INR, D-dimer PT 15.4 Sec. (12.2-14.9) H 01/10/21 04:01 INR 1.17 (0.87-1.13) H 01/10/21 04:01 Abnormal lab findings: Abnormal Labs 12/20/20 12/20/20 12/20/20 13:58 13:58 13:58 WBC 41.1 H* RBC 5.59 H Hgb 16.2 H Hct 47.7 H MCV MCHC RDW 15.5 H Plt Count 486 H Lymph % (Auto) Eos % (Auto) Lymph # (Auto) Eos # (Auto) Seg Neutrophils % Seg Neuts % (Manual) Lymphocytes % (Manual) Seg Neutrophils # Seg Neutrophils # Man Lymphocytes # (Manual) Monocytes # (Manual) PT INR APTT Fibrinogen ABG pH POC ABG pCO2 POC ABG pO2 ABG pO2 ABG Base Excess ABG Hemoglobin ABG Oxyhemoglobin ABG Sodium ABG Potassium ABG Chloride ABG Glucose Carboxyhemoglobin Sodium 130 L Potassium Chloride 80.7 L Carbon Dioxide BUN 37 H Creatinine Glucose 101 H POC Glucose Lactic Acid 3.20 H* Calcium Ionized Calcium Phosphorus Magnesium AST Alkaline Phosphatase 142 H Total Protein 6.2 L Albumin 2.2 L Triglycerides Arterial Blood Glucose Arterial Blood Ionized Calcium Urine Creatinine Crossmatch 12/20/20 12/20/20 12/20/20 13:58 20:35 21:30 WBC RBC Hgb Hct MCV MCHC RDW Plt Count Lymph % (Auto) Eos % (Auto) Lymph # (Auto) Eos # (Auto) Seg Neutrophils % Seg Neuts % (Manual) Lymphocytes % (Manual) Seg Neutrophils # Seg Neutrophils # Man Lymphocytes # (Manual) Monocytes # (Manual) PT INR APTT 49.4 H Fibrinogen ABG pH 7.313 L POC ABG pCO2 POC ABG pO2 ABG pO2 104.4 H ABG Base Excess ABG Hemoglobin ABG Oxyhemoglobin ABG Sodium ABG Potassium ABG Chloride ABG Glucose Carboxyhemoglobin Sodium Potassium Chloride Carbon Dioxide BUN Creatinine Glucose POC Glucose 122 H Lactic Acid Calcium Ionized Calcium Phosphorus Magnesium AST Alkaline Phosphatase Total Protein Albumin Triglycerides Arterial Blood Glucose Arterial Blood Ionized Calcium Urine Creatinine Crossmatch 12/21/20 12/21/20 12/21/20 03:06 08:14 08:14 WBC 23.9 H RBC Hgb Hct MCV MCHC RDW 15.7 H Plt Count Lymph % (Auto) Eos % (Auto) Lymph # (Auto) Eos # (Auto) Seg Neutrophils % Seg Neuts % (Manual) 91.0 H Lymphocytes % (Manual) 3.0 L Seg Neutrophils # Seg Neutrophils # Man 21.7 H Lymphocytes # (Manual) 0.7 L Monocytes # (Manual) 1.4 H PT INR APTT Fibrinogen ABG pH 7.464 H POC ABG pCO2 POC ABG pO2 202.9 H ABG pO2 ABG Base Excess ABG Hemoglobin ABG Oxyhemoglobin ABG Sodium 133.7 L ABG Potassium ABG Chloride ABG Glucose 122 H Carboxyhemoglobin Sodium Potassium Chloride Carbon Dioxide BUN 46 H Creatinine Glucose 103 H POC Glucose Lactic Acid Calcium 6.6 L D Ionized Calcium Phosphorus Magnesium AST Alkaline Phosphatase Total Protein 5.4 L Albumin 2.3 L Triglycerides Arterial Blood Glucose 122 H Arterial Blood Ionized Calcium 3.5 L Urine Creatinine Crossmatch 12/21/20 12/21/20 12/22/20 17:18 21:28 04:45 WBC 22.9 H RBC Hgb Hct MCV MCHC RDW 15.7 H Plt Count Lymph % (Auto) Eos % (Auto) Lymph # (Auto) Eos # (Auto) Seg Neutrophils % Seg Neuts % (Manual) Lymphocytes % (Manual) Seg Neutrophils # Seg Neutrophils # Man Lymphocytes # (Manual) Monocytes # (Manual) PT INR APTT Fibrinogen ABG pH POC ABG pCO2 POC ABG pO2 ABG pO2 ABG Base Excess ABG Hemoglobin ABG Oxyhemoglobin ABG Sodium ABG Potassium ABG Chloride ABG Glucose Carboxyhemoglobin Sodium Potassium Chloride Carbon Dioxide BUN Creatinine Glucose POC Glucose 108 H Lactic Acid Calcium Ionized Calcium 4.1 L Phosphorus Magnesium AST Alkaline Phosphatase Total Protein Albumin Triglycerides Arterial Blood Glucose Arterial Blood Ionized Calcium Urine Creatinine Crossmatch 12/22/20 12/22/20 12/22/20 04:45 05:00 11:38 WBC RBC Hgb Hct MCV MCHC RDW Plt Count Lymph % (Auto) Eos % (Auto) Lymph # (Auto) Eos # (Auto) Seg Neutrophils % Seg Neuts % (Manual) Lymphocytes % (Manual) Seg Neutrophils # Seg Neutrophils # Man Lymphocytes # (Manual) Monocytes # (Manual) PT INR APTT Fibrinogen ABG pH 7.462 H POC ABG pCO2 POC ABG pO2 ABG pO2 ABG Base Excess ABG Hemoglobin ABG Oxyhemoglobin ABG Sodium ABG Potassium ABG Chloride ABG Glucose 118 H Carboxyhemoglobin Sodium 146 H Potassium Chloride Carbon Dioxide BUN 45 H Creatinine Glucose 116 H POC Glucose 115 H Lactic Acid Calcium 6.9 L Ionized Calcium Phosphorus Magnesium AST Alkaline Phosphatase Total Protein Albumin Triglycerides Arterial Blood Glucose 118 H Arterial Blood Ionized Calcium 3.8 L Urine Creatinine Crossmatch 12/22/20 12/23/20 12/23/20 23:26 04:43 04:45 WBC 22.2 H RBC Hgb Hct MCV MCHC RDW 16.1 H Plt Count Lymph % (Auto) Eos % (Auto) Lymph # (Auto) Eos # (Auto) Seg Neutrophils % Seg Neuts % (Manual) Lymphocytes % (Manual) Seg Neutrophils # Seg Neutrophils # Man Lymphocytes # (Manual) Monocytes # (Manual) PT INR APTT Fibrinogen ABG pH POC ABG pCO2 POC ABG pO2 ABG pO2 ABG Base Excess ABG Hemoglobin ABG Oxyhemoglobin ABG Sodium 147.4 H ABG Potassium ABG Chloride 112.0 H ABG Glucose 130 H Carboxyhemoglobin 0.4 L Sodium Potassium Chloride Carbon Dioxide BUN Creatinine Glucose POC Glucose 110 H Lactic Acid Calcium Ionized Calcium Phosphorus Magnesium AST Alkaline Phosphatase Total Protein Albumin Triglycerides Arterial Blood Glucose 130 H Arterial Blood Ionized Calcium 3.8 L Urine Creatinine Crossmatch 12/23/20 12/23/20 12/23/20 04:45 05:17 11:22 WBC RBC Hgb Hct MCV MCHC RDW Plt Count Lymph % (Auto) Eos % (Auto) Lymph # (Auto) Eos # (Auto) Seg Neutrophils % Seg Neuts % (Manual) Lymphocytes % (Manual) Seg Neutrophils # Seg Neutrophils # Man Lymphocytes # (Manual) Monocytes # (Manual) PT INR APTT Fibrinogen ABG pH POC ABG pCO2 POC ABG pO2 ABG pO2 ABG Base Excess ABG Hemoglobin ABG Oxyhemoglobin ABG Sodium ABG Potassium ABG Chloride ABG Glucose Carboxyhemoglobin Sodium 154 H D Potassium Chloride 110.9 H Carbon Dioxide BUN 54 H Creatinine 1.8 H Glucose 115 H POC Glucose 116 H 130 H Lactic Acid Calcium 7.0 L Ionized Calcium Phosphorus Magnesium AST Alkaline Phosphatase Total Protein Albumin Triglycerides Arterial Blood Glucose Arterial Blood Ionized Calcium Urine Creatinine Crossmatch 12/23/20 12/23/20 12/23/20 12:15 12:15 23:15 WBC RBC Hgb Hct MCV MCHC RDW Plt Count Lymph % (Auto) Eos % (Auto) Lymph # (Auto) Eos # (Auto) Seg Neutrophils % Seg Neuts % (Manual) Lymphocytes % (Manual) Seg Neutrophils # Seg Neutrophils # Man Lymphocytes # (Manual) Monocytes # (Manual) PT INR APTT Fibrinogen ABG pH POC ABG pCO2 POC ABG pO2 ABG pO2 ABG Base Excess ABG Hemoglobin ABG Oxyhemoglobin ABG Sodium ABG Potassium ABG Chloride ABG Glucose Carboxyhemoglobin Sodium 154 H Potassium Chloride Carbon Dioxide BUN Creatinine 1.5 H Glucose POC Glucose 132 H Lactic Acid Calcium Ionized Calcium Phosphorus Magnesium AST Alkaline Phosphatase Total Protein Albumin Triglycerides Arterial Blood Glucose Arterial Blood Ionized Calcium Urine Creatinine 78.1 H Crossmatch 12/24/20 12/24/20 12/24/20 04:19 04:30 04:30 WBC 18.3 H RBC Hgb Hct MCV MCHC RDW 16.5 H Plt Count Lymph % (Auto) Eos % (Auto) Lymph # (Auto) Eos # (Auto) Seg Neutrophils % Seg Neuts % (Manual) Lymphocytes % (Manual) Seg Neutrophils # Seg Neutrophils # Man Lymphocytes # (Manual) Monocytes # (Manual) PT INR APTT Fibrinogen ABG pH POC ABG pCO2 POC ABG pO2 ABG pO2 ABG Base Excess ABG Hemoglobin ABG Oxyhemoglobin ABG Sodium 149.7 H ABG Potassium ABG Chloride 116.0 H ABG Glucose 180 H Carboxyhemoglobin Sodium 155 H Potassium Chloride 116.1 H Carbon Dioxide BUN 52 H Creatinine 1.5 H Glucose 175 H POC Glucose Lactic Acid Calcium 6.8 L Ionized Calcium Phosphorus Magnesium 3.00 H AST Alkaline Phosphatase Total Protein 5.7 L Albumin 1.8 L Triglycerides Arterial Blood Glucose 180 H Arterial Blood Ionized Calcium 3.7 L Urine Creatinine Crossmatch 12/24/20 12/24/20 12/24/20 05:24 11:21 18:05 WBC RBC Hgb Hct MCV MCHC RDW Plt Count Lymph % (Auto) Eos % (Auto) Lymph # (Auto) Eos # (Auto) Seg Neutrophils % Seg Neuts % (Manual) Lymphocytes % (Manual) Seg Neutrophils # Seg Neutrophils # Man Lymphocytes # (Manual) Monocytes # (Manual) PT INR APTT Fibrinogen ABG pH POC ABG pCO2 POC ABG pO2 ABG pO2 ABG Base Excess ABG Hemoglobin ABG Oxyhemoglobin ABG Sodium ABG Potassium ABG Chloride ABG Glucose Carboxyhemoglobin Sodium Potassium Chloride Carbon Dioxide BUN Creatinine Glucose POC Glucose 153 H 154 H 133 H Lactic Acid Calcium Ionized Calcium Phosphorus Magnesium AST Alkaline Phosphatase Total Protein Albumin Triglycerides Arterial Blood Glucose Arterial Blood Ionized Calcium Urine Creatinine Crossmatch 12/25/20 12/25/20 12/25/20 04:00 07:00 07:00 WBC 17.6 H RBC Hgb Hct MCV MCHC 31 L RDW 16.0 H Plt Count Lymph % (Auto) Eos % (Auto) Lymph # (Auto) Eos # (Auto) Seg Neutrophils % Seg Neuts % (Manual) Lymphocytes % (Manual) Seg Neutrophils # Seg Neutrophils # Man Lymphocytes # (Manual) Monocytes # (Manual) PT INR APTT Fibrinogen ABG pH POC ABG pCO2 POC ABG pO2 ABG pO2 ABG Base Excess ABG Hemoglobin ABG Oxyhemoglobin ABG Sodium 152.5 H ABG Potassium ABG Chloride 119.0 H ABG Glucose 136 H Carboxyhemoglobin Sodium Potassium Chloride Carbon Dioxide BUN Creatinine Glucose POC Glucose Lactic Acid Calcium Ionized Calcium Phosphorus Magnesium 2.70 H AST Alkaline Phosphatase Total Protein Albumin Triglycerides Arterial Blood Glucose 136 H Arterial Blood Ionized Calcium 3.7 L Urine Creatinine Crossmatch 12/25/20 12/25/20 12/25/20 07:00 11:24 16:32 WBC RBC Hgb Hct MCV MCHC RDW Plt Count Lymph % (Auto) Eos % (Auto) Lymph # (Auto) Eos # (Auto) Seg Neutrophils % Seg Neuts % (Manual) Lymphocytes % (Manual) Seg Neutrophils # Seg Neutrophils # Man Lymphocytes # (Manual) Monocytes # (Manual) PT INR APTT Fibrinogen ABG pH POC ABG pCO2 POC ABG pO2 ABG pO2 ABG Base Excess ABG Hemoglobin ABG Oxyhemoglobin ABG Sodium ABG Potassium ABG Chloride ABG Glucose Carboxyhemoglobin Sodium 156 H Potassium Chloride 118.0 H Carbon Dioxide BUN 44 H Creatinine 1.7 H Glucose 126 H POC Glucose 110 H 126 H Lactic Acid Calcium 6.9 L Ionized Calcium Phosphorus Magnesium AST Alkaline Phosphatase Total Protein Albumin Triglycerides Arterial Blood Glucose Arterial Blood Ionized Calcium Urine Creatinine Crossmatch 12/25/20 12/25/20 12/26/20 18:18 23:23 03:30 WBC RBC Hgb Hct MCV MCHC RDW Plt Count Lymph % (Auto) Eos % (Auto) Lymph # (Auto) Eos # (Auto) Seg Neutrophils % Seg Neuts % (Manual) Lymphocytes % (Manual) Seg Neutrophils # Seg Neutrophils # Man Lymphocytes # (Manual) Monocytes # (Manual) PT INR APTT Fibrinogen ABG pH POC ABG pCO2 POC ABG pO2 ABG pO2 ABG Base Excess ABG Hemoglobin 11.8 L ABG Oxyhemoglobin ABG Sodium ABG Potassium 4.7 H ABG Chloride 114.0 H ABG Glucose 132 H Carboxyhemoglobin Sodium 151 H Potassium Chloride 114.3 H Carbon Dioxide BUN 51 H Creatinine 2.6 H D Glucose 122 H POC Glucose 115 H Lactic Acid Calcium 6.4 L Ionized Calcium Phosphorus Magnesium AST Alkaline Phosphatase Total Protein Albumin Triglycerides Arterial Blood Glucose 132 H Arterial Blood Ionized Calcium 3.6 L Urine Creatinine Crossmatch 12/26/20 12/26/20 12/26/20 04:55 06:01 06:01 WBC 21.6 H RBC Hgb Hct MCV MCHC 31 L RDW 16.5 H Plt Count 136 L Lymph % (Auto) Eos % (Auto) Lymph # (Auto) Eos # (Auto) Seg Neutrophils % Seg Neuts % (Manual) Lymphocytes % (Manual) Seg Neutrophils # Seg Neutrophils # Man Lymphocytes # (Manual) Monocytes # (Manual) PT INR APTT Fibrinogen ABG pH POC ABG pCO2 POC ABG pO2 ABG pO2 ABG Base Excess ABG Hemoglobin ABG Oxyhemoglobin ABG Sodium ABG Potassium ABG Chloride ABG Glucose Carboxyhemoglobin Sodium 173 H* D Potassium 6.1 H* D Chloride 137.0 H Carbon Dioxide BUN 73 H Creatinine 3.8 H Glucose 125 H POC Glucose 112 H Lactic Acid Calcium 6.2 L Ionized Calcium Phosphorus 5.70 H D Magnesium 2.90 H AST Alkaline Phosphatase Total Protein Albumin Triglycerides Arterial Blood Glucose Arterial Blood Ionized Calcium Urine Creatinine Crossmatch 12/26/20 12/26/20 12/26/20 08:33 11:19 22:00 WBC RBC Hgb Hct MCV MCHC RDW Plt Count Lymph % (Auto) Eos % (Auto) Lymph # (Auto) Eos # (Auto) Seg Neutrophils % Seg Neuts % (Manual) Lymphocytes % (Manual) Seg Neutrophils # Seg Neutrophils # Man Lymphocytes # (Manual) Monocytes # (Manual) PT INR APTT Fibrinogen ABG pH POC ABG pCO2 POC ABG pO2 ABG pO2 ABG Base Excess ABG Hemoglobin ABG Oxyhemoglobin ABG Sodium ABG Potassium ABG Chloride ABG Glucose Carboxyhemoglobin Sodium 147 H D Potassium 5.8 H D Chloride 108.8 H Carbon Dioxide 21 L BUN 68 H 68 H Creatinine 3.8 H 4.1 H Glucose 144 H 154 H POC Glucose 144 H Lactic Acid Calcium 6.5 L 5.8 L* Ionized Calcium Phosphorus Magnesium AST 215 H Alkaline Phosphatase Total Protein 4.7 L Albumin 1.5 L Triglycerides Arterial Blood Glucose Arterial Blood Ionized Calcium Urine Creatinine Crossmatch 12/26/20 12/26/20 12/27/20 23:13 Unknown 00:25 WBC RBC Hgb 11.1 L Hct MCV MCHC RDW Plt Count Lymph % (Auto) Eos % (Auto) Lymph # (Auto) Eos # (Auto) Seg Neutrophils % Seg Neuts % (Manual) Lymphocytes % (Manual) Seg Neutrophils # Seg Neutrophils # Man Lymphocytes # (Manual) Monocytes # (Manual) PT INR APTT Fibrinogen ABG pH POC ABG pCO2 POC ABG pO2 ABG pO2 ABG Base Excess ABG Hemoglobin ABG Oxyhemoglobin ABG Sodium ABG Potassium ABG Chloride ABG Glucose Carboxyhemoglobin Sodium Potassium Chloride Carbon Dioxide BUN Creatinine Glucose POC Glucose 163 H Lactic Acid Calcium Ionized Calcium Phosphorus 5.60 H Magnesium AST Alkaline Phosphatase Total Protein Albumin Triglycerides Arterial Blood Glucose Arterial Blood Ionized Calcium Urine Creatinine Crossmatch 12/27/20 12/27/20 12/27/20 02:57 04:15 04:15 WBC 28.5 H RBC Hgb 11.2 L Hct MCV MCHC 31 L RDW 16.5 H Plt Count 130 L Lymph % (Auto) Eos % (Auto) Lymph # (Auto) Eos # (Auto) Seg Neutrophils % Seg Neuts % (Manual) Lymphocytes % (Manual) Seg Neutrophils # Seg Neutrophils # Man Lymphocytes # (Manual) Monocytes # (Manual) PT INR APTT Fibrinogen ABG pH 7.238 L POC ABG pCO2 POC ABG pO2 139.1 H ABG pO2 ABG Base Excess ABG Hemoglobin 11.2 L ABG Oxyhemoglobin ABG Sodium 133.8 L ABG Potassium 5.2 H ABG Chloride ABG Glucose 182 H Carboxyhemoglobin Sodium 136 L Potassium 6.0 H Chloride Carbon Dioxide 18 L BUN 68 H Creatinine 4.1 H Glucose 166 H POC Glucose Lactic Acid Calcium 6.2 L Ionized Calcium Phosphorus 7.30 H D Magnesium AST Alkaline Phosphatase Total Protein Albumin Triglycerides 164 H Arterial Blood Glucose 182 H Arterial Blood Ionized Calcium 3.4 L Urine Creatinine Crossmatch 12/27/20 12/27/20 12/27/20 04:50 10:51 11:17 WBC RBC Hgb Hct MCV MCHC RDW Plt Count Lymph % (Auto) Eos % (Auto) Lymph # (Auto) Eos # (Auto) Seg Neutrophils % Seg Neuts % (Manual) Lymphocytes % (Manual) Seg Neutrophils # Seg Neutrophils # Man Lymphocytes # (Manual) Monocytes # (Manual) PT INR APTT Fibrinogen ABG pH POC ABG pCO2 POC ABG pO2 ABG pO2 ABG Base Excess ABG Hemoglobin ABG Oxyhemoglobin ABG Sodium ABG Potassium ABG Chloride ABG Glucose Carboxyhemoglobin Sodium Potassium Chloride Carbon Dioxide BUN Creatinine Glucose POC Glucose 140 H 113 H 154 H Lactic Acid Calcium Ionized Calcium Phosphorus Magnesium AST Alkaline Phosphatase Total Protein Albumin Triglycerides Arterial Blood Glucose Arterial Blood Ionized Calcium Urine Creatinine Crossmatch 12/27/20 12/27/20 12/27/20 12:40 14:40 23:17 WBC RBC Hgb Hct MCV MCHC RDW Plt Count Lymph % (Auto) Eos % (Auto) Lymph # (Auto) Eos # (Auto) Seg Neutrophils % Seg Neuts % (Manual) Lymphocytes % (Manual) Seg Neutrophils # Seg Neutrophils # Man Lymphocytes # (Manual) Monocytes # (Manual) PT INR APTT Fibrinogen ABG pH POC ABG pCO2 POC ABG pO2 ABG pO2 ABG Base Excess ABG Hemoglobin ABG Oxyhemoglobin ABG Sodium ABG Potassium ABG Chloride ABG Glucose Carboxyhemoglobin Sodium 135 L Potassium Chloride Carbon Dioxide 21 L BUN 62 H Creatinine 3.8 H Glucose 132 H POC Glucose 130 H Lactic Acid Calcium 5.6 L* Ionized Calcium 3.3 L Phosphorus Magnesium AST Alkaline Phosphatase Total Protein Albumin Triglycerides Arterial Blood Glucose Arterial Blood Ionized Calcium Urine Creatinine Crossmatch 12/28/20 12/28/20 12/28/20 05:36 07:08 07:28 WBC 27.2 H RBC 3.50 L Hgb 9.6 L Hct 30.8 L MCV MCHC 31 L RDW 16.1 H Plt Count 111 L Lymph % (Auto) Eos % (Auto) Lymph # (Auto) Eos # (Auto) Seg Neutrophils % Seg Neuts % (Manual) 95.0 H Lymphocytes % (Manual) Seg Neutrophils # Seg Neutrophils # Man 25.8 H Lymphocytes # (Manual) 0.0 L Monocytes # (Manual) 1.1 H PT INR APTT Fibrinogen ABG pH 7.200 L POC ABG pCO2 POC ABG pO2 67.2 L ABG pO2 ABG Base Excess ABG Hemoglobin 10.3 L ABG Oxyhemoglobin 89.6 L ABG Sodium 127.8 L ABG Potassium 5.1 H ABG Chloride ABG Glucose 132 H Carboxyhemoglobin 0.4 L Sodium Potassium Chloride Carbon Dioxide BUN Creatinine Glucose POC Glucose 128 H Lactic Acid Calcium Ionized Calcium Phosphorus Magnesium AST Alkaline Phosphatase Total Protein Albumin Triglycerides Arterial Blood Glucose 132 H Arterial Blood Ionized Calcium 3.5 L Urine Creatinine Crossmatch 12/28/20 12/28/20 12/28/20 07:28 11:37 13:25 WBC RBC Hgb Hct MCV MCHC RDW Plt Count Lymph % (Auto) Eos % (Auto) Lymph # (Auto) Eos # (Auto) Seg Neutrophils % Seg Neuts % (Manual) Lymphocytes % (Manual) Seg Neutrophils # Seg Neutrophils # Man Lymphocytes # (Manual) Monocytes # (Manual) PT INR APTT Fibrinogen ABG pH POC ABG pCO2 POC ABG pO2 ABG pO2 ABG Base Excess ABG Hemoglobin ABG Oxyhemoglobin ABG Sodium ABG Potassium ABG Chloride ABG Glucose Carboxyhemoglobin Sodium 131 L 133 L Potassium 5.9 H 5.1 H Chloride 97.1 L Carbon Dioxide 15 L 21 L BUN 70 H 77 H Creatinine 4.0 H 4.4 H Glucose 118 H 140 H POC Glucose 135 H Lactic Acid Calcium 6.3 L 6.3 L Ionized Calcium Phosphorus 7.10 H Magnesium AST 144 H Alkaline Phosphatase Total Protein 4.8 L Albumin 1.3 L Triglycerides Arterial Blood Glucose Arterial Blood Ionized Calcium Urine Creatinine Crossmatch 12/28/20 12/28/20 12/29/20 16:38 23:28 03:08 WBC RBC Hgb Hct MCV MCHC RDW Plt Count Lymph % (Auto) Eos % (Auto) Lymph # (Auto) Eos # (Auto) Seg Neutrophils % Seg Neuts % (Manual) Lymphocytes % (Manual) Seg Neutrophils # Seg Neutrophils # Man Lymphocytes # (Manual) Monocytes # (Manual) PT INR APTT Fibrinogen ABG pH 7.301 L POC ABG pCO2 POC ABG pO2 151.1 H ABG pO2 ABG Base Excess ABG Hemoglobin 8.7 L ABG Oxyhemoglobin 98.2 H ABG Sodium 123.4 L ABG Potassium ABG Chloride 97.0 L ABG Glucose 144 H Carboxyhemoglobin Sodium Potassium Chloride Carbon Dioxide BUN Creatinine Glucose POC Glucose 140 H 134 H Lactic Acid Calcium Ionized Calcium Phosphorus Magnesium AST Alkaline Phosphatase Total Protein Albumin Triglycerides Arterial Blood Glucose 144 H Arterial Blood Ionized Calcium 3.4 L Urine Creatinine Crossmatch 12/29/20 12/29/20 12/29/20 05:20 05:20 06:01 WBC 21.0 H RBC 2.89 L Hgb 8.1 L Hct 25.5 L MCV MCHC RDW 16.1 H Plt Count 124 L Lymph % (Auto) Eos % (Auto) Lymph # (Auto) Eos # (Auto) Seg Neutrophils % Seg Neuts % (Manual) Lymphocytes % (Manual) Seg Neutrophils # Seg Neutrophils # Man Lymphocytes # (Manual) Monocytes # (Manual) PT INR APTT Fibrinogen ABG pH POC ABG pCO2 POC ABG pO2 ABG pO2 ABG Base Excess ABG Hemoglobin ABG Oxyhemoglobin ABG Sodium ABG Potassium ABG Chloride ABG Glucose Carboxyhemoglobin Sodium 131 L Potassium Chloride 93.4 L Carbon Dioxide BUN 79 H Creatinine 4.7 H Glucose 122 H POC Glucose 108 H Lactic Acid Calcium 5.5 L* Ionized Calcium Phosphorus 5.70 H Magnesium 1.60 L AST Alkaline Phosphatase Total Protein Albumin Triglycerides Arterial Blood Glucose Arterial Blood Ionized Calcium Urine Creatinine Crossmatch 12/29/20 12/29/20 12/29/20 10:04 11:27 17:31 WBC RBC Hgb Hct MCV MCHC RDW Plt Count Lymph % (Auto) Eos % (Auto) Lymph # (Auto) Eos # (Auto) Seg Neutrophils % Seg Neuts % (Manual) Lymphocytes % (Manual) Seg Neutrophils # Seg Neutrophils # Man Lymphocytes # (Manual) Monocytes # (Manual) PT INR APTT Fibrinogen ABG pH POC ABG pCO2 POC ABG pO2 ABG pO2 ABG Base Excess ABG Hemoglobin ABG Oxyhemoglobin ABG Sodium ABG Potassium ABG Chloride ABG Glucose Carboxyhemoglobin Sodium Potassium Chloride Carbon Dioxide BUN Creatinine Glucose POC Glucose 107 H 112 H 110 H Lactic Acid Calcium Ionized Calcium Phosphorus Magnesium AST Alkaline Phosphatase Total Protein Albumin Triglycerides Arterial Blood Glucose Arterial Blood Ionized Calcium Urine Creatinine Crossmatch 12/30/20 12/30/20 12/30/20 03:31 08:06 17:39 WBC RBC Hgb Hct MCV MCHC RDW Plt Count Lymph % (Auto) Eos % (Auto) Lymph # (Auto) Eos # (Auto) Seg Neutrophils % Seg Neuts % (Manual) Lymphocytes % (Manual) Seg Neutrophils # Seg Neutrophils # Man Lymphocytes # (Manual) Monocytes # (Manual) PT INR APTT Fibrinogen ABG pH 7.261 L POC ABG pCO2 POC ABG pO2 123.1 H ABG pO2 ABG Base Excess ABG Hemoglobin 8.7 L ABG Oxyhemoglobin ABG Sodium 123.2 L ABG Potassium ABG Chloride 96.0 L ABG Glucose 112 H Carboxyhemoglobin Sodium 128 L Potassium Chloride 90.7 L Carbon Dioxide 21 L BUN 86 H Creatinine 4.9 H Glucose 107 H POC Glucose 134 H Lactic Acid Calcium 6.2 L Ionized Calcium Phosphorus 5.30 H Magnesium 1.50 L AST Alkaline Phosphatase Total Protein Albumin Triglycerides Arterial Blood Glucose 112 H Arterial Blood Ionized Calcium 3.2 L Urine Creatinine Crossmatch 12/30/20 12/31/20 12/31/20 22:45 02:14 04:40 WBC RBC Hgb Hct MCV MCHC RDW Plt Count Lymph % (Auto) Eos % (Auto) Lymph # (Auto) Eos # (Auto) Seg Neutrophils % Seg Neuts % (Manual) Lymphocytes % (Manual) Seg Neutrophils # Seg Neutrophils # Man Lymphocytes # (Manual) Monocytes # (Manual) PT INR APTT Fibrinogen ABG pH 7.267 L POC ABG pCO2 POC ABG pO2 ABG pO2 ABG Base Excess ABG Hemoglobin 8.0 L ABG Oxyhemoglobin 93.7 L ABG Sodium ABG Potassium ABG Chloride 95.0 L ABG Glucose 108 H Carboxyhemoglobin 1.7 H Sodium 126 L Potassium Chloride 90.3 L Carbon Dioxide 20 L BUN 70 H Creatinine 4.3 H Glucose 209 H POC Glucose 109 H Lactic Acid Calcium 6.6 L Ionized Calcium Phosphorus 4.70 H Magnesium 1.60 L AST Alkaline Phosphatase Total Protein Albumin Triglycerides 157 H Arterial Blood Glucose 108 H Arterial Blood Ionized Calcium 3.7 L Urine Creatinine Crossmatch 12/31/20 12/31/20 01/01/21 16:23 23:21 04:00 WBC 18.0 H RBC 2.75 L Hgb 7.7 L Hct 23.9 L MCV MCHC RDW 15.6 H Plt Count Lymph % (Auto) Eos % (Auto) Lymph # (Auto) Eos # (Auto) Seg Neutrophils % Seg Neuts % (Manual) 91.0 H Lymphocytes % (Manual) 6.0 L Seg Neutrophils # Seg Neutrophils # Man 16.4 H Lymphocytes # (Manual) 1.1 L Monocytes # (Manual) PT INR APTT Fibrinogen ABG pH 7.264 L POC ABG pCO2 POC ABG pO2 74.8 L ABG pO2 ABG Base Excess ABG Hemoglobin 7.1 L ABG Oxyhemoglobin 92.1 L ABG Sodium 124.9 L ABG Potassium ABG Chloride 95.0 L ABG Glucose 111 H Carboxyhemoglobin 1.7 H Sodium Potassium Chloride Carbon Dioxide BUN Creatinine Glucose POC Glucose 125 H Lactic Acid Calcium Ionized Calcium Phosphorus Magnesium AST Alkaline Phosphatase Total Protein Albumin Triglycerides Arterial Blood Glucose 111 H Arterial Blood Ionized Calcium 4.0 L Urine Creatinine Crossmatch 01/01/21 01/01/21 01/01/21 05:50 13:41 15:55 WBC RBC Hgb Hct MCV MCHC RDW Plt Count Lymph % (Auto) Eos % (Auto) Lymph # (Auto) Eos # (Auto) Seg Neutrophils % Seg Neuts % (Manual) Lymphocytes % (Manual) Seg Neutrophils # Seg Neutrophils # Man Lymphocytes # (Manual) Monocytes # (Manual) PT INR APTT Fibrinogen ABG pH 7.148 L 7.207 L POC ABG pCO2 53.1 H POC ABG pO2 57.3 L 138.4 H ABG pO2 ABG Base Excess ABG Hemoglobin 9.0 L 8.3 L ABG Oxyhemoglobin 83.2 L ABG Sodium 126.2 L 124.5 L ABG Potassium ABG Chloride 95.0 L 95.0 L ABG Glucose 96 H 120 H Carboxyhemoglobin Sodium 131 L Potassium Chloride 93.3 L Carbon Dioxide 21 L BUN 67 H Creatinine 4.2 H Glucose POC Glucose Lactic Acid Calcium 7.1 L Ionized Calcium Phosphorus Magnesium AST 60 H Alkaline Phosphatase Total Protein 4.8 L Albumin 1.4 L Triglycerides Arterial Blood Glucose 96 H 120 H Arterial Blood Ionized Calcium 4.1 L 3.9 L Urine Creatinine Crossmatch 01/01/21 01/01/21 01/02/21 17:09 23:24 03:47 WBC RBC Hgb Hct MCV MCHC RDW Plt Count Lymph % (Auto) Eos % (Auto) Lymph # (Auto) Eos # (Auto) Seg Neutrophils % Seg Neuts % (Manual) Lymphocytes % (Manual) Seg Neutrophils # Seg Neutrophils # Man Lymphocytes # (Manual) Monocytes # (Manual) PT INR APTT Fibrinogen ABG pH 7.276 L POC ABG pCO2 POC ABG pO2 173.6 H ABG pO2 ABG Base Excess ABG Hemoglobin 7 L ABG Oxyhemoglobin ABG Sodium 122.4 L ABG Potassium ABG Chloride 94.0 L ABG Glucose 118 H Carboxyhemoglobin Sodium Potassium Chloride Carbon Dioxide BUN Creatinine Glucose POC Glucose 124 H 119 H Lactic Acid Calcium Ionized Calcium Phosphorus Magnesium AST Alkaline Phosphatase Total Protein Albumin Triglycerides Arterial Blood Glucose 118 H Arterial Blood Ionized Calcium 4.0 L Urine Creatinine Crossmatch 01/02/21 01/02/21 01/02/21 05:33 08:00 08:00 WBC 19.7 H RBC 2.53 L Hgb 7.1 L Hct 22.0 L MCV MCHC RDW 16.4 H Plt Count Lymph % (Auto) Eos % (Auto) Lymph # (Auto) Eos # (Auto) Seg Neutrophils % Seg Neuts % (Manual) Lymphocytes % (Manual) Seg Neutrophils # Seg Neutrophils # Man Lymphocytes # (Manual) Monocytes # (Manual) PT INR APTT Fibrinogen ABG pH POC ABG pCO2 POC ABG pO2 ABG pO2 ABG Base Excess ABG Hemoglobin ABG Oxyhemoglobin ABG Sodium ABG Potassium ABG Chloride ABG Glucose Carboxyhemoglobin Sodium 127 L Potassium Chloride 89.3 L Carbon Dioxide 19 L BUN 82 H Creatinine 5.0 H Glucose 103 H POC Glucose 107 H Lactic Acid Calcium 7.8 L Ionized Calcium Phosphorus 6.40 H Magnesium AST 47 H Alkaline Phosphatase Total Protein 5.0 L Albumin 1.6 L Triglycerides Arterial Blood Glucose Arterial Blood Ionized Calcium Urine Creatinine Crossmatch 01/02/21 01/03/21 01/03/21 17:25 07:56 09:47 WBC 17.7 H RBC 2.19 L Hgb 6.2 L Hct 18.5 L* MCV MCHC RDW 16.1 H Plt Count Lymph % (Auto) Eos % (Auto) Lymph # (Auto) Eos # (Auto) Seg Neutrophils % Seg Neuts % (Manual) Lymphocytes % (Manual) Seg Neutrophils # Seg Neutrophils # Man Lymphocytes # (Manual) Monocytes # (Manual) PT INR APTT Fibrinogen ABG pH POC ABG pCO2 POC ABG pO2 ABG pO2 ABG Base Excess ABG Hemoglobin ABG Oxyhemoglobin ABG Sodium ABG Potassium ABG Chloride ABG Glucose Carboxyhemoglobin Sodium 130 L Potassium 3.5 L Chloride 90.3 L Carbon Dioxide BUN 68 H Creatinine 3.9 H Glucose 103 H POC Glucose 116 H Lactic Acid Calcium 8.0 L Ionized Calcium Phosphorus 4.80 H D Magnesium AST Alkaline Phosphatase Total Protein Albumin Triglycerides Arterial Blood Glucose Arterial Blood Ionized Calcium Urine Creatinine Crossmatch 01/03/21 01/03/21 01/04/21 11:00 19:00 03:12 WBC 17.0 H RBC 2.51 L Hgb 7.1 L Hct 21.5 L MCV MCHC RDW 16.6 H Plt Count Lymph % (Auto) Eos % (Auto) Lymph # (Auto) Eos # (Auto) Seg Neutrophils % Seg Neuts % (Manual) Lymphocytes % (Manual) Seg Neutrophils # Seg Neutrophils # Man Lymphocytes # (Manual) Monocytes # (Manual) PT INR APTT Fibrinogen ABG pH 7.463 H POC ABG pCO2 POC ABG pO2 72.2 L ABG pO2 ABG Base Excess ABG Hemoglobin 6.2 L ABG Oxyhemoglobin 91.8 L ABG Sodium 128.4 L ABG Potassium 3.3 L ABG Chloride 96.0 L ABG Glucose 112 H Carboxyhemoglobin Sodium Potassium Chloride Carbon Dioxide BUN Creatinine Glucose POC Glucose Lactic Acid Calcium Ionized Calcium Phosphorus Magnesium AST Alkaline Phosphatase Total Protein Albumin Triglycerides Arterial Blood Glucose 112 H Arterial Blood Ionized Calcium 4.3 L Urine Creatinine Crossmatch See Detail 01/04/21 01/04/21 01/04/21 05:16 06:20 06:20 WBC 18.5 H RBC 2.53 L Hgb 7.4 L Hct 21.9 L MCV MCHC RDW 15.8 H Plt Count Lymph % (Auto) Eos % (Auto) Lymph # (Auto) Eos # (Auto) Seg Neutrophils % Seg Neuts % (Manual) Lymphocytes % (Manual) Seg Neutrophils # Seg Neutrophils # Man Lymphocytes # (Manual) Monocytes # (Manual) PT INR APTT Fibrinogen ABG pH POC ABG pCO2 POC ABG pO2 ABG pO2 ABG Base Excess ABG Hemoglobin ABG Oxyhemoglobin ABG Sodium ABG Potassium ABG Chloride ABG Glucose Carboxyhemoglobin Sodium 135 L Potassium Chloride 95.2 L Carbon Dioxide BUN 56 H Creatinine 3.2 H Glucose 109 H POC Glucose 123 H Lactic Acid Calcium 7.6 L Ionized Calcium Phosphorus Magnesium AST Alkaline Phosphatase Total Protein Albumin Triglycerides Arterial Blood Glucose Arterial Blood Ionized Calcium Urine Creatinine Crossmatch 01/05/21 01/05/21 01/05/21 03:50 07:22 07:22 WBC 23.8 H RBC 2.93 L Hgb 8.2 L Hct 25.1 L MCV MCHC RDW 16.5 H Plt Count Lymph % (Auto) Eos % (Auto) Lymph # (Auto) Eos # (Auto) Seg Neutrophils % Seg Neuts % (Manual) Lymphocytes % (Manual) Seg Neutrophils # Seg Neutrophils # Man Lymphocytes # (Manual) Monocytes # (Manual) PT INR APTT Fibrinogen ABG pH POC ABG pCO2 POC ABG pO2 ABG pO2 136.8 H ABG Base Excess -2.3 L ABG Hemoglobin 6.9 L ABG Oxyhemoglobin ABG Sodium ABG Potassium ABG Chloride ABG Glucose Carboxyhemoglobin Sodium 134 L Potassium Chloride 93.3 L Carbon Dioxide BUN 77 H Creatinine 4.2 H Glucose 105 H POC Glucose Lactic Acid Calcium Ionized Calcium Phosphorus 4.90 H D Magnesium AST Alkaline Phosphatase Total Protein Albumin Triglycerides Arterial Blood Glucose Arterial Blood Ionized Calcium Urine Creatinine Crossmatch 01/05/21 01/05/21 01/05/21 11:02 14:06 15:37 WBC RBC Hgb Hct MCV MCHC RDW Plt Count Lymph % (Auto) Eos % (Auto) Lymph # (Auto) Eos # (Auto) Seg Neutrophils % Seg Neuts % (Manual) Lymphocytes % (Manual) Seg Neutrophils # Seg Neutrophils # Man Lymphocytes # (Manual) Monocytes # (Manual) PT INR APTT Fibrinogen ABG pH POC ABG pCO2 POC ABG pO2 332.3 H ABG pO2 ABG Base Excess ABG Hemoglobin 7.7 L ABG Oxyhemoglobin 98.7 H ABG Sodium 131.0 L ABG Potassium 3.3 L ABG Chloride 97.0 L ABG Glucose 118 H Carboxyhemoglobin Sodium Potassium Chloride Carbon Dioxide BUN Creatinine Glucose POC Glucose 118 H 111 H Lactic Acid Calcium Ionized Calcium Phosphorus Magnesium AST Alkaline Phosphatase Total Protein Albumin Triglycerides Arterial Blood Glucose 118 H Arterial Blood Ionized Calcium 4.4 L Urine Creatinine Crossmatch 01/05/21 01/06/21 01/06/21 23:18 04:00 04:20 WBC RBC Hgb Hct MCV MCHC RDW Plt Count Lymph % (Auto) Eos % (Auto) Lymph # (Auto) Eos # (Auto) Seg Neutrophils % Seg Neuts % (Manual) Lymphocytes % (Manual) Seg Neutrophils # Seg Neutrophils # Man Lymphocytes # (Manual) Monocytes # (Manual) PT INR APTT Fibrinogen ABG pH POC ABG pCO2 POC ABG pO2 230.5 H ABG pO2 ABG Base Excess ABG Hemoglobin 7.9 L ABG Oxyhemoglobin 98.5 H ABG Sodium 129.4 L ABG Potassium ABG Chloride 97.0 L ABG Glucose 117 H Carboxyhemoglobin Sodium 133 L Potassium Chloride 94.4 L Carbon Dioxide BUN 62 H Creatinine 3.6 H Glucose 110 H POC Glucose 110 H Lactic Acid Calcium 7.8 L Ionized Calcium Phosphorus Magnesium AST Alkaline Phosphatase Total Protein Albumin Triglycerides Arterial Blood Glucose 117 H Arterial Blood Ionized Calcium 4.5 L Urine Creatinine Crossmatch 01/06/21 01/06/21 01/06/21 05:28 09:00 11:00 WBC 15.2 H RBC 2.18 L Hgb 6.5 L Hct 21.8 L MCV 100 H MCHC 30 L RDW 18.5 H Plt Count Lymph % (Auto) Eos % (Auto) Lymph # (Auto) Eos # (Auto) Seg Neutrophils % Seg Neuts % (Manual) Lymphocytes % (Manual) Seg Neutrophils # Seg Neutrophils # Man Lymphocytes # (Manual) Monocytes # (Manual) PT INR APTT Fibrinogen ABG pH POC ABG pCO2 POC ABG pO2 ABG pO2 ABG Base Excess ABG Hemoglobin ABG Oxyhemoglobin ABG Sodium ABG Potassium ABG Chloride ABG Glucose Carboxyhemoglobin Sodium Potassium Chloride Carbon Dioxide BUN Creatinine Glucose POC Glucose 109 H Lactic Acid Calcium Ionized Calcium Phosphorus Magnesium AST Alkaline Phosphatase Total Protein Albumin Triglycerides Arterial Blood Glucose Arterial Blood Ionized Calcium Urine Creatinine Crossmatch See Detail 01/06/21 01/06/21 01/07/21 11:32 23:44 03:10 WBC 15.3 H RBC 2.30 L Hgb 6.7 L Hct 20.1 L MCV MCHC RDW 16.6 H Plt Count Lymph % (Auto) Eos % (Auto) Lymph # (Auto) Eos # (Auto) Seg Neutrophils % Seg Neuts % (Manual) Lymphocytes % (Manual) Seg Neutrophils # Seg Neutrophils # Man Lymphocytes # (Manual) Monocytes # (Manual) PT INR APTT Fibrinogen ABG pH POC ABG pCO2 POC ABG pO2 ABG pO2 ABG Base Excess ABG Hemoglobin ABG Oxyhemoglobin ABG Sodium ABG Potassium ABG Chloride ABG Glucose Carboxyhemoglobin Sodium Potassium Chloride Carbon Dioxide BUN Creatinine Glucose POC Glucose 113 H 118 H Lactic Acid Calcium Ionized Calcium Phosphorus Magnesium AST Alkaline Phosphatase Total Protein Albumin Triglycerides Arterial Blood Glucose Arterial Blood Ionized Calcium Urine Creatinine Crossmatch 01/07/21 01/07/21 01/07/21 03:10 04:17 05:06 WBC RBC Hgb Hct MCV MCHC RDW Plt Count Lymph % (Auto) Eos % (Auto) Lymph # (Auto) Eos # (Auto) Seg Neutrophils % Seg Neuts % (Manual) Lymphocytes % (Manual) Seg Neutrophils # Seg Neutrophils # Man Lymphocytes # (Manual) Monocytes # (Manual) PT INR APTT Fibrinogen ABG pH 7.272 L POC ABG pCO2 50.1 H POC ABG pO2 ABG pO2 ABG Base Excess ABG Hemoglobin 8.4 L ABG Oxyhemoglobin ABG Sodium 128.6 L ABG Potassium ABG Chloride 95.0 L ABG Glucose 109 H Carboxyhemoglobin Sodium 133 L Potassium Chloride 93.6 L Carbon Dioxide BUN 85 H Creatinine 3.9 H Glucose 112 H POC Glucose 106 H Lactic Acid Calcium Ionized Calcium Phosphorus 4.70 H D Magnesium AST Alkaline Phosphatase Total Protein Albumin Triglycerides Arterial Blood Glucose 109 H Arterial Blood Ionized Calcium Urine Creatinine Crossmatch 01/07/21 01/07/21 01/07/21 14:05 16:00 23:25 WBC RBC Hgb 8.1 L Hct 24.2 L MCV MCHC RDW Plt Count Lymph % (Auto) Eos % (Auto) Lymph # (Auto) Eos # (Auto) Seg Neutrophils % Seg Neuts % (Manual) Lymphocytes % (Manual) Seg Neutrophils # Seg Neutrophils # Man Lymphocytes # (Manual) Monocytes # (Manual) PT INR APTT Fibrinogen ABG pH POC ABG pCO2 POC ABG pO2 ABG pO2 ABG Base Excess ABG Hemoglobin 7.2 L ABG Oxyhemoglobin ABG Sodium 127.3 L ABG Potassium ABG Chloride 96.0 L ABG Glucose 98 H Carboxyhemoglobin Sodium Potassium Chloride Carbon Dioxide BUN Creatinine Glucose POC Glucose 106 H Lactic Acid Calcium Ionized Calcium Phosphorus Magnesium AST Alkaline Phosphatase Total Protein Albumin Triglycerides Arterial Blood Glucose 98 H Arterial Blood Ionized Calcium Urine Creatinine Crossmatch 01/08/21 01/08/21 01/08/21 03:22 05:30 23:22 WBC RBC Hgb Hct MCV MCHC RDW Plt Count Lymph % (Auto) Eos % (Auto) Lymph # (Auto) Eos # (Auto) Seg Neutrophils % Seg Neuts % (Manual) Lymphocytes % (Manual) Seg Neutrophils # Seg Neutrophils # Man Lymphocytes # (Manual) Monocytes # (Manual) PT INR APTT Fibrinogen ABG pH POC ABG pCO2 POC ABG pO2 71.3 L ABG pO2 ABG Base Excess ABG Hemoglobin 8.7 L ABG Oxyhemoglobin 92.2 L ABG Sodium 125.9 L ABG Potassium ABG Chloride 96.0 L ABG Glucose 124 H Carboxyhemoglobin Sodium Potassium Chloride Carbon Dioxide BUN Creatinine Glucose POC Glucose 118 H 110 H Lactic Acid Calcium Ionized Calcium Phosphorus Magnesium AST Alkaline Phosphatase Total Protein Albumin Triglycerides Arterial Blood Glucose 124 H Arterial Blood Ionized Calcium Urine Creatinine Crossmatch 01/08/21 01/08/21 01/09/21 Unknown Unknown 08:45 WBC 15.2 H RBC 2.62 L Hgb 7.6 L Hct 22.7 L MCV MCHC RDW 16.7 H Plt Count Lymph % (Auto) Eos % (Auto) Lymph # (Auto) Eos # (Auto) Seg Neutrophils % Seg Neuts % (Manual) 95.0 H Lymphocytes % (Manual) 3.0 L Seg Neutrophils # Seg Neutrophils # Man 14.4 H Lymphocytes # (Manual) 0.5 L Monocytes # (Manual) PT INR APTT Fibrinogen ABG pH POC ABG pCO2 POC ABG pO2 ABG pO2 ABG Base Excess ABG Hemoglobin ABG Oxyhemoglobin ABG Sodium ABG Potassium ABG Chloride ABG Glucose Carboxyhemoglobin Sodium 129 L 129 L Potassium Chloride 91.2 L 92.7 L Carbon Dioxide 21 L 19 L BUN 91 H 105 H Creatinine 4.0 H 4.4 H Glucose 115 H 107 H POC Glucose Lactic Acid Calcium Ionized Calcium Phosphorus 5.00 H Magnesium AST Alkaline Phosphatase Total Protein 5.3 L Albumin 1.6 L Triglycerides 166 H Arterial Blood Glucose Arterial Blood Ionized Calcium Urine Creatinine Crossmatch 01/09/21 01/09/21 01/10/21 10:10 23:51 04:00 WBC 14.1 H RBC 2.50 L Hgb 7.2 L Hct 21.6 L MCV MCHC RDW 16.5 H Plt Count Lymph % (Auto) Eos % (Auto) Lymph # (Auto) Eos # (Auto) Seg Neutrophils % Seg Neuts % (Manual) 92.0 H Lymphocytes % (Manual) 2.0 L Seg Neutrophils # Seg Neutrophils # Man 13.0 H Lymphocytes # (Manual) 0.3 L Monocytes # (Manual) PT INR APTT Fibrinogen ABG pH 7.273 L POC ABG pCO2 POC ABG pO2 ABG pO2 ABG Base Excess ABG Hemoglobin 8.7 L ABG Oxyhemoglobin ABG Sodium 126.2 L ABG Potassium 4.8 H ABG Chloride 96.0 L ABG Glucose 160 H Carboxyhemoglobin Sodium Potassium Chloride Carbon Dioxide BUN Creatinine Glucose POC Glucose 154 H Lactic Acid Calcium Ionized Calcium Phosphorus Magnesium AST Alkaline Phosphatase Total Protein Albumin Triglycerides Arterial Blood Glucose 160 H Arterial Blood Ionized Calcium Urine Creatinine Crossmatch 01/10/21 01/10/21 01/10/21 04:01 04:01 04:01 WBC 12.6 H RBC 2.89 L Hgb 8.1 L Hct 24.9 L MCV MCHC RDW 16.6 H Plt Count Lymph % (Auto) Eos % (Auto) Lymph # (Auto) Eos # (Auto) Seg Neutrophils % Seg Neuts % (Manual) 95.0 H Lymphocytes % (Manual) 3.0 L Seg Neutrophils # Seg Neutrophils # Man 12.0 H Lymphocytes # (Manual) 0.4 L Monocytes # (Manual) PT 15.4 H INR 1.17 H APTT 40.2 H Fibrinogen 817 H ABG pH POC ABG pCO2 POC ABG pO2 ABG pO2 ABG Base Excess ABG Hemoglobin ABG Oxyhemoglobin ABG Sodium ABG Potassium ABG Chloride ABG Glucose Carboxyhemoglobin Sodium 128 L Potassium Chloride 90.4 L Carbon Dioxide 19 L BUN 113 H Creatinine 4.5 H Glucose 162 H POC Glucose Lactic Acid Calcium Ionized Calcium Phosphorus 5.70 H Magnesium AST Alkaline Phosphatase Total Protein 6.2 L Albumin 2.1 L Triglycerides Arterial Blood Glucose Arterial Blood Ionized Calcium Urine Creatinine Crossmatch 01/10/21 01/10/21 01/11/21 05:31 11:45 04:00 WBC RBC Hgb Hct MCV MCHC RDW Plt Count Lymph % (Auto) Eos % (Auto) Lymph # (Auto) Eos # (Auto) Seg Neutrophils % Seg Neuts % (Manual) Lymphocytes % (Manual) Seg Neutrophils # Seg Neutrophils # Man Lymphocytes # (Manual) Monocytes # (Manual) PT INR APTT Fibrinogen ABG pH 7.311 L POC ABG pCO2 49.2 H POC ABG pO2 ABG pO2 ABG Base Excess ABG Hemoglobin 9.4 L ABG Oxyhemoglobin ABG Sodium 130.3 L ABG Potassium ABG Chloride 96.0 L ABG Glucose 104 H Carboxyhemoglobin Sodium Potassium Chloride Carbon Dioxide BUN Creatinine Glucose POC Glucose 150 H 145 H Lactic Acid Calcium Ionized Calcium Phosphorus Magnesium AST Alkaline Phosphatase Total Protein Albumin Triglycerides Arterial Blood Glucose 104 H Arterial Blood Ionized Calcium Urine Creatinine Crossmatch 01/11/21 01/11/21 01/12/21 04:45 17:29 05:51 WBC RBC Hgb Hct MCV MCHC RDW Plt Count Lymph % (Auto) Eos % (Auto) Lymph # (Auto) Eos # (Auto) Seg Neutrophils % Seg Neuts % (Manual) Lymphocytes % (Manual) Seg Neutrophils # Seg Neutrophils # Man Lymphocytes # (Manual) Monocytes # (Manual) PT INR APTT Fibrinogen ABG pH POC ABG pCO2 POC ABG pO2 ABG pO2 ABG Base Excess ABG Hemoglobin ABG Oxyhemoglobin ABG Sodium ABG Potassium ABG Chloride ABG Glucose Carboxyhemoglobin Sodium 134 L Potassium 3.5 L D Chloride 95.5 L Carbon Dioxide BUN 88 H Creatinine 3.5 H Glucose 103 H POC Glucose 109 H 114 H Lactic Acid Calcium Ionized Calcium Phosphorus Magnesium AST Alkaline Phosphatase Total Protein Albumin Triglycerides Arterial Blood Glucose Arterial Blood Ionized Calcium Urine Creatinine Crossmatch 01/12/21 01/12/21 01/12/21 10:00 10:00 11:56 WBC RBC Hgb Hct MCV MCHC RDW Plt Count Lymph % (Auto) Eos % (Auto) Lymph # (Auto) Eos # (Auto) Seg Neutrophils % Seg Neuts % (Manual) Lymphocytes % (Manual) Seg Neutrophils # Seg Neutrophils # Man Lymphocytes # (Manual) Monocytes # (Manual) PT INR APTT Fibrinogen ABG pH POC ABG pCO2 POC ABG pO2 ABG pO2 ABG Base Excess ABG Hemoglobin ABG Oxyhemoglobin ABG Sodium ABG Potassium ABG Chloride ABG Glucose Carboxyhemoglobin Sodium 136 L Potassium Chloride 95.2 L Carbon Dioxide BUN 102 H Creatinine 3.6 H Glucose 106 H POC Glucose 113 H Lactic Acid Calcium Ionized Calcium Phosphorus 4.90 H Magnesium AST Alkaline Phosphatase Total Protein Albumin Triglycerides 153 H Arterial Blood Glucose Arterial Blood Ionized Calcium Urine Creatinine Crossmatch 01/12/21 01/12/21 01/13/21 17:43 23:31 03:14 WBC RBC Hgb Hct MCV MCHC RDW Plt Count Lymph % (Auto) Eos % (Auto) Lymph # (Auto) Eos # (Auto) Seg Neutrophils % Seg Neuts % (Manual) Lymphocytes % (Manual) Seg Neutrophils # Seg Neutrophils # Man Lymphocytes # (Manual) Monocytes # (Manual) PT INR APTT Fibrinogen ABG pH 7.484 H POC ABG pCO2 POC ABG pO2 ABG pO2 ABG Base Excess ABG Hemoglobin 8.4 L ABG Oxyhemoglobin ABG Sodium 134.4 L ABG Potassium 3.1 L ABG Chloride ABG Glucose 117 H Carboxyhemoglobin Sodium Potassium Chloride Carbon Dioxide BUN Creatinine Glucose POC Glucose 113 H 108 H Lactic Acid Calcium Ionized Calcium Phosphorus Magnesium AST Alkaline Phosphatase Total Protein Albumin Triglycerides Arterial Blood Glucose 117 H Arterial Blood Ionized Calcium 4.5 L Urine Creatinine Crossmatch 01/13/21 01/13/21 01/13/21 04:56 05:00 05:00 WBC RBC 2.87 L Hgb 8.0 L Hct 24.4 L MCV MCHC RDW 17.2 H Plt Count Lymph % (Auto) Eos % (Auto) Lymph # (Auto) Eos # (Auto) Seg Neutrophils % Seg Neuts % (Manual) Lymphocytes % (Manual) Seg Neutrophils # Seg Neutrophils # Man Lymphocytes # (Manual) Monocytes # (Manual) PT INR APTT Fibrinogen ABG pH POC ABG pCO2 POC ABG pO2 ABG pO2 ABG Base Excess ABG Hemoglobin ABG Oxyhemoglobin ABG Sodium ABG Potassium ABG Chloride ABG Glucose Carboxyhemoglobin Sodium Potassium 3.0 L Chloride 97.6 L Carbon Dioxide BUN 69 H Creatinine 2.9 H Glucose 114 H POC Glucose 110 H Lactic Acid Calcium 8.0 L Ionized Calcium Phosphorus Magnesium AST Alkaline Phosphatase Total Protein Albumin Triglycerides Arterial Blood Glucose Arterial Blood Ionized Calcium Urine Creatinine Crossmatch 01/13/21 01/14/21 01/14/21 12:09 05:00 05:00 WBC 12.4 H RBC 2.72 L Hgb 7.7 L Hct 23.3 L MCV MCHC RDW 17.3 H Plt Count Lymph % (Auto) 6.5 L Eos % (Auto) 7.7 H Lymph # (Auto) 0.8 L Eos # (Auto) 1.0 H Seg Neutrophils % 82.7 H Seg Neuts % (Manual) Lymphocytes % (Manual) Seg Neutrophils # 10.2 H Seg Neutrophils # Man Lymphocytes # (Manual) Monocytes # (Manual) PT INR APTT Fibrinogen ABG pH POC ABG pCO2 POC ABG pO2 ABG pO2 ABG Base Excess ABG Hemoglobin ABG Oxyhemoglobin ABG Sodium ABG Potassium ABG Chloride ABG Glucose Carboxyhemoglobin Sodium Potassium 3.2 L Chloride Carbon Dioxide BUN 79 H Creatinine 3.1 H Glucose POC Glucose 111 H Lactic Acid Calcium Ionized Calcium Phosphorus Magnesium AST Alkaline Phosphatase Total Protein Albumin Triglycerides Arterial Blood Glucose Arterial Blood Ionized Calcium Urine Creatinine Crossmatch 01/16/21 01/16/21 04:30 04:30 WBC RBC 2.62 L Hgb 7.6 L Hct 22.6 L MCV MCHC RDW 17.3 H Plt Count Lymph % (Auto) Eos % (Auto) Lymph # (Auto) Eos # (Auto) Seg Neutrophils % Seg Neuts % (Manual) Lymphocytes % (Manual) Seg Neutrophils # Seg Neutrophils # Man Lymphocytes # (Manual) Monocytes # (Manual) PT INR APTT Fibrinogen ABG pH POC ABG pCO2 POC ABG pO2 ABG pO2 ABG Base Excess ABG Hemoglobin ABG Oxyhemoglobin ABG Sodium ABG Potassium ABG Chloride ABG Glucose Carboxyhemoglobin Sodium 146 H Potassium 2.9 L* Chloride Carbon Dioxide BUN 58 H Creatinine 2.4 H Glucose 101 H POC Glucose Lactic Acid Calcium Ionized Calcium Phosphorus Magnesium AST Alkaline Phosphatase Total Protein Albumin 2.1 L Triglycerides Arterial Blood Glucose Arterial Blood Ionized Calcium Urine Creatinine Crossmatch
[2021-01-16] MEDS ORDERED: VANCOMYCIN PHARMACY TO DOSE IV SCH (12:00)
--- NOTE | 2021-01-16 12:18 | XRay Report ---
CHEST 1 VIEW 01/16/2021 10:53 AM INDICATION / CLINICAL INFORMATION: fever, sob. COMPARISON: None available. FINDINGS: SUPPORT DEVICES: ET tube and NG tube are satisfactory in position. HEART / MEDIASTINUM: No significant abnormality. LUNGS / PLEURA: Diffuse bilateral pulmonary opacities No pneumothorax. ADDITIONAL FINDINGS: No significant additional findings. IMPRESSION: 1. Mild contusion satisfactory in position 2. Diffuse bilateral pulmonary opacities. Signer Name: Rodrick Altman MD Signed: 01/16/2021 12:13 PM Workstation Name: [email or web address] [id number]
[2021-01-16] MEDS: CEFEPIME/NS 1 GM/100 ML 1 GM/100 ML BAG IV SCH (12:26)
[2021-01-16] MEDS ORDERED: VANCOMYCIN 2,000 MG in SODIUM CHLORIDE 0.9% 500 ML 500 ML IV ONE (13:00)
[2021-01-16] MEDS ORDERED: FLUCONAZOLE 200 MG 200 MG/100 ML BAG IV SCH (13:00)
[2021-01-16] MEDS ORDERED: POTASSIUM CHLORIDE 20 MEQ 20 MEQ/100 ML BAG IV ONE (14:00)
[2021-01-16] MEDS ORDERED: POTASSIUM CHLORIDE 20 MEQ PACKET FEEDTUBE ONE (14:00)
--- NOTE | 2021-01-16 14:18 | Progress Note ---
Assessment and Plan POD#29 s/p ex lap and small bowel resection for necrotic bowel secondary to incarcerated ventral hernia left with open abdomen. POD#26 s/p abdominal exploration with segmental small bowel resection. abthera placement POD#23 s/p abdominal exploration, small bowel resection for ischemia, abthera placement POD#20 s/p abdominal exploration with small bowel anastamosis and abthera vac placement POD#16 s/p abdomen closure with mesh Febrile but stable. Unclear etiology of fevers. Will follow up blood cultures. May ask IR to aspirate fluid collection if blood cultures negative. 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 No clinical signs of identifiable active bleeding. Spoke with interventional radiology who reviewed CAT scan who feels that the fluid collection is likely reactive and likely will absorb on its own. Continue supportive care. Pt getting evaluated by LTACs. Prognosis is guarded. Subjective Date of service: 01/16/21 Narrative: Patient has been febrile over the last 24 hours. When awake patient is more alert. Patient has been tolerating tube feeds and having bowel movements. Objective Vital Signs - 12hr 01/16/21 01/16/21 01/16/21 02:15 02:30 02:45 Temperature Pulse Rate 92 H 94 H 94 H Pulse Rate [ From Monitor] Respiratory 28 H 27 H 30 H Rate Blood Pressure 144/66 143/64 147/67 O2 Sat by Pulse 96 94 96 Oximetry 01/16/21 01/16/21 01/16/21 03:00 03:15 03:30 Temperature Pulse Rate 92 H 89 92 H Pulse Rate [ From Monitor] Respiratory 26 H 27 H 28 H Rate Blood Pressure 146/66 131/63 144/63 O2 Sat by Pulse 96 96 94 Oximetry 01/16/21 01/16/21 01/16/21 03:35 03:45 03:50 Temperature 102.7 F H Pulse Rate 93 H 92 H Pulse Rate [ From Monitor] Respiratory 26 H Rate Blood Pressure 131/63 152/66 O2 Sat by Pulse 94 95 Oximetry 01/16/21 01/16/21 01/16/21 04:00 04:15 04:30 Temperature Pulse Rate 97 H 92 H 90 Pulse Rate [ 92 H From Monitor] Respiratory 32 H 29 H 29 H Rate Blood Pressure 144/68 135/66 149/73 O2 Sat by Pulse 96 95 97 Oximetry 01/16/21 01/16/21 01/16/21 04:45 05:00 05:15 Temperature Pulse Rate 95 H 93 H 96 H Pulse Rate [ From Monitor] Respiratory 32 H 27 H 33 H Rate Blood Pressure 154/66 136/62 146/86 O2 Sat by Pulse 96 97 96 Oximetry 01/16/21 01/16/21 01/16/21 05:30 05:45 06:00 Temperature Pulse Rate 92 H 95 H 94 H Pulse Rate [ From Monitor] Respiratory 29 H 30 H 31 H Rate Blood Pressure 146/71 134/71 139/74 O2 Sat by Pulse 96 94 95 Oximetry 01/16/21 01/16/21 01/16/21 06:15 06:30 06:45 Temperature Pulse Rate 88 92 H 86 Pulse Rate [ From Monitor] Respiratory 26 H 17 26 H Rate Blood Pressure 129/67 126/64 128/63 O2 Sat by Pulse 95 96 95 Oximetry 01/16/21 01/16/21 01/16/21 07:00 07:15 07:30 Temperature 102.7 F H Pulse Rate 87 88 86 Pulse Rate [ From Monitor] Respiratory 28 H 27 H 25 H Rate Blood Pressure 121/61 130/65 111/54 O2 Sat by Pulse 95 96 96 Oximetry 01/16/21 01/16/21 01/16/21 07:45 08:00 08:15 Temperature Pulse Rate 82 82 80 Pulse Rate [ 82 From Monitor] Respiratory 26 H 25 H 26 H Rate Blood Pressure 118/56 129/64 114/55 O2 Sat by Pulse 96 96 96 Oximetry 01/16/21 01/16/21 01/16/21 08:25 08:30 08:45 Temperature Pulse Rate 82 83 87 Pulse Rate [ From Monitor] Respiratory 25 H 28 H Rate Blood Pressure 112/64 112/64 129/68 O2 Sat by Pulse 96 96 93 Oximetry 01/16/21 01/16/21 01/16/21 09:00 09:15 09:30 Temperature Pulse Rate 85 89 87 Pulse Rate [ From Monitor] Respiratory 29 H 29 H 29 H Rate Blood Pressure 133/67 120/75 136/69 O2 Sat by Pulse 96 96 96 Oximetry 01/16/21 01/16/21 01/16/21 09:45 10:00 10:15 Temperature Pulse Rate 86 101 H 95 H Pulse Rate [ From Monitor] Respiratory 28 H 41 H 29 H Rate Blood Pressure 145/72 148/79 154/75 O2 Sat by Pulse 96 98 96 Oximetry 01/16/21 01/16/21 01/16/21 10:20 10:30 10:45 Temperature Pulse Rate 102 H 100 H 104 H Pulse Rate [ From Monitor] Respiratory 64 H 42 H 26 H Rate Blood Pressure 164/85 164/85 166/86 O2 Sat by Pulse 97 96 96 Oximetry 01/16/21 01/16/21 01/16/21 11:09 11:15 11:31 Temperature 102.2 F H Pulse Rate 98 H 97 H Pulse Rate [ From Monitor] Respiratory 33 H 32 H Rate Blood Pressure 167/78 O2 Sat by Pulse 95 96 Oximetry 01/16/21 11:41 Temperature Pulse Rate 102 H Pulse Rate [ From Monitor] Respiratory Rate Blood Pressure 148/80 O2 Sat by Pulse 95 Oximetry - General physical appearance well developed, well nourished, no distress, no pain - Respiratory normal expansion, normal respiratory effort - Abdomen soft, other (staple line intact, c/d with some focal skin sloughing. LAURA drains are dark serous) - Genitourinary other (significant scrotal edema) - Labs 01/16/21 04:30 01/16/21 04:30 Diabetes panel 01/16/21 Range/Units 04:30 Sodium 146 H (137-145) mmol/L Potassium 2.9 L* (3.6-5.0) mmol/L Chloride 103.2 (98-107) mmol/L Carbon Dioxide 30 (22-30) mmol/L BUN 58 H (9-20) mg/dL Creatinine 2.4 H (0.8-1.3) mg/dL Glucose 101 H (75-100) mg/dL Calcium 8.4 (8.4-10.2) mg/dL AST 19 (5-40) units/L ALT 18 (7-56) units/L Alkaline Phosphatase 118 (35-129) units/L Total Protein 6.4 (6.3-8.2) g/dL Albumin 2.1 L (3.9-5) g/dL Calcium panel 01/16/21 Range/Units 04:30 Calcium 8.4 (8.4-10.2) mg/dL Albumin 2.1 L (3.9-5) g/dL Pituitary panel 01/16/21 Range/Units 04:30 Sodium 146 H (137-145) mmol/L Potassium 2.9 L* (3.6-5.0) mmol/L Chloride 103.2 (98-107) mmol/L Carbon Dioxide 30 (22-30) mmol/L BUN 58 H (9-20) mg/dL Creatinine 2.4 H (0.8-1.3) mg/dL Glucose 101 H (75-100) mg/dL Calcium 8.4 (8.4-10.2) mg/dL Adrenal panel 01/16/21 Range/Units 04:30 Sodium 146 H (137-145) mmol/L Potassium 2.9 L* (3.6-5.0) mmol/L Chloride 103.2 (98-107) mmol/L Carbon Dioxide 30 (22-30) mmol/L BUN 58 H (9-20) mg/dL Creatinine 2.4 H (0.8-1.3) mg/dL Glucose 101 H (75-100) mg/dL Calcium 8.4 (8.4-10.2) mg/dL Total Bilirubin 0.50 (0.1-1.2) mg/dL AST 19 (5-40) units/L ALT 18 (7-56) units/L Alkaline Phosphatase 118 (35-129) units/L Total Protein 6.4 (6.3-8.2) g/dL Albumin 2.1 L (3.9-5) g/dL
[2021-01-16 14:57] LABS: Bacteria,Urine 4+ /HPF (Negative); Bilirubin,Urine NEG (Negative); Blood,Urine MOD (Negative); Color,Urine Yellow (Yellow); Hyaline Casts,Urine 11 /LPF; Mucus,Urine FEW /HPF; Renal Epithelial Cells,Urine 8 /LPF; Urobilinogen,Urine < 2.0 mg/dL (<2.0)
[2021-01-16 15:02] LABS: WBC,Urine > 182.0 /HPF (0.0-6.0)
--- NOTE | 2021-01-16 16:33 | Progress Note ---
<MARGE LOVELL - Last Filed: 01/16/21 16:36> Assessment and Plan Assessment and plan: This is a 60-year-old male with obesity, hypertension, nicotine dependence, PVD s/p stent placement on dual antiplatelet therapy, hyperlipidemia, OA, GERD, ventral hernia and small bowel obstruction who was admitted with small bowel obstruction and peritonitis Problem List: Septic Shock, POA (presented with leukocytosis, tachycardia, tachypnea,febrile and evidence of peritonitis) COVID-19 PUI, ruled out Small bowel obstruction with peritonitis Ventral hernia s/p repair Leukocytosis Anemia Postoperative pain Protein calorie malnutrition Hyponatremia Hyponatremia Hypokalemia Uremia Acute Kidney Injury, on HD now Obesity Hypertension Nicotine dependence CAD s/p stent placement Hyperlipidemia Osteoarthritis GERD -[facility], surgery, infectious disease, nephrology consulted, appreciate recommenda tions -12/20 CT abdomen/pelvis showed high-grade small bowel obstruction related to severe complex ventral abdominal wall hernias, progressed in appearance from prior exam from 09/12/2020 without evidence of pneumonitis or pneumoperitoneum, patchy bibasilar airspace disease concern for atypical infectious process/pneumonitis -12/20 s/p ex lap, extensive lysis of adhesions, small bowel resection (removal of 70 cm necrotic small bowel segment), peritoneal lavage and ABThera abdominal wound VAC placement -12/23 s/p abdominal exploration, small bowel resection, peritoneal lavage, ABThera wound VAC placement -12/26 s/p ex lap, small bowel resection, peritoneal lavage, ABThera wound VAC placement -12/29 s/p ex lap, small bowel resection, small bowel anastomosis and ABThera wound VAC placement -01/01 s/p myocutaneous flap creation, abdominal wall component separation and placement of phasix mesh with surgery yesterday where his abdomen was closed and 2 LAURA drains were placed on either side of his midline between fascia and subcu tissue. -12/30 initiated on HD by nephro -01/09 CT abdomen/pelvis with contrast shows large organized virtually bland appearing fluid collection along the anterior abdomen measuring up to 29 cm in the craniocaudal dimension and 2.6 cm in transverse dimension which may reflect postoperative seroma or hematoma, no associated gas to suggest superimposed infection, no contrast is seen within the collection to suggest bowel perforation -01/09 CT chest with contrast shows CHF with small left and trace right pleural effusions and diffuse groundglass opacities in airspace consolidation consistent with pulmonary edema (superimposed multifocal pneumonia is not excluded), diffus e anasarca likely related to third spacing of fluid. -IV abx per ID -s/p TPN, on TF now -SSI, Accucheck q6 -s/p Vasopressor support -HD per nephro -12/23 Fractional excretion of sodium calculated at 0.16 indicating prerenal state -COVID-19 PCR negative -On mechanical ventilation, wean as tolerated, VAP bundle -Propofol, fentanyl, IV push Dilaudid, Precedex -Transfuse for Hbg < 7 -Trend CBC, BMP, Mg, Phos -WOCN consult, wound care per nursing GI/DVT prophylaxis: PPI, SCDs to bilateral lower extremities while in bed, heparin subcu Disposition: ICU Lines: PICC placed 01/05, IJ Trialysis The high probability of a clinically significant, sudden or life threatening deterioration of the [multi] system(s) required my full and direct attention, intervention and personal management. The aggregate critical care time was [35] minutes. This time is in addition to time spent performing reported procedures but includes the following: [x] Data Review and interpretation [x] Patient assessment and monitoring of vital signs [x] Documentation [x] Medication orders and management History Interval history: This is a 60-year-old male with obesity, hypertension, nicotine dependence, PVD s/p stent placement on dual antiplatelet therapy, hyperlipidemia, OA, GERD, ventral hernia with SBO who presents to the emergency department on 12/20 with severe, diffuse, worsened with movement, slightly relieved with rest abdominal pain rated at 10/10 with decreased oral intake, nausea and multiple episodes of vomiting. Patient underwent a CT of his abdomen/pelvis and was found to have evidence of small bowel obstruction as well as clinical findings consistent with acute peritonitis. Patient was admitted to the hospital service with acute peritonitis and incarcerated ventral hernia with consults to [facility] and surgery. 12/21: Patient is status post ex lap, extensive lysis of adhesions, small bowel resection, peritoneal lavage and ABThera abdominal wound VAC placement by Dr. Tena and Dr. Brumfield on 12/20 with removal of a 70 cm segment of necrotic small bowel. Patient was intubated and sedated on propofol 10/ fent 4 at the time of my examination on Assist-control, rate of 24, PEEP of 6, tidal volume of 550 and FiO2 35%. Patient needed to be deeply sedated and there was a became hypotensive. Patient was started on patient for support with Levophed and r eceived bolus of IVF. 12/22: Patient was febrile to 103 and vancomycin and Diflucan were added by [facility] and infectious disease was consulted and they increased Zosyn and stop vancomycin. Patient was given additional 1 L bolus today for CVP goal of 10-12. At the time of examination patient was on Levophed, propofol and fentanyl CMV tidal volume 500, rate of 24, PEEP of 6 and FiO2 65%. Plan for OR tomorrow 12/23: Patient Cr/BUN noted to be increased and nephrology was consulted. ID decreased the zosyn dose d/r renal function. Urine studies ordered. Ivy placed today. LR boluses per [facility], TPN to be started. Fractional excretion of sodium calculated at 0.16 indicating prerenal state 12/24: Patient is status post abdominal exploration, small bowel resection of 4 to 5 cm segment of dusky small bowel, peritoneal lavage and ABThera wound VAC placement on 12/23 with surgery, leukocytosis and renal function is improving, worsening hypernatremia and hyperchloremia. Patient will be started on TPN to day. We will place on SSI/Accu-Cheks every every 6 hours. Patient noted to be nearly maxed on Levophed and vasopressin was ordered. Remains sedated and on MV 12/25: Leukocytosis continues to improve, given Ca Gluconate today, Hypernatremia, Cr and hyperchorlemia slightly worsened today. Patient is sedated with propofol and fentanyl on CMV TV 500, Rate 24, Peep 6, FiO2 50%. He remains on levophed. Possible OR Saturday. 12/26 Patient presented with small bowel obstruction, is status post ex lap, ext ensive lysis of adhesions, small bowel resection, peritoneal lavage and ABThera abdominal wound VAC placement by Dr. Tena and Dr. Brumfield on 12/20 with removal of a 70 cm segment of necrotic small bowel. Was taken back to OR on 12/23 s/p Abdominal exploration, Small bowel resection, Peritoneal lavage, ABThera wound VAC placement. he is still having fever. Poss going to OR again today. Sepsis managed by ID. He is on Diflucan, Zosyn. He is on Levophed. 6/8 s/p ex lap, extensive lysis of adhesions, small bowel resection (removal of 70 cm necrotic small bowel segment), peritoneal lavage and ABThera abdominal wound VAC placement. Still having fever Still on vent 6/9: Patient is orally intubated with AC mode ventilation rate 24, tidal volume 500, FiO2 75% and PEEP of 6. POD#8 s/p ex lap and small bowel resection for necrotic bowel secondary to incarcerated ventral hernia left with open abdomen. POD#5 s/p abdominal exploration with segmental small bowel resection. abthera placement POD#2 s/p abdominal exploration, small bowel resection for ischemia, abthera placement -[facility], surgery, infectious disease, nephrology consulted, appreciate recommendations -IV abx per ID: Zosyn, fluconazole -NGT to LIWS -NPO for now, TPN -SSI, Accucheck q6 -Vasopressor support with levophed -On mechanical ventilation, wean as tolerated, VAP bundle -Sedated with propofol and analgesia with fentanyl drip -Trend CBC, BMP, Mg, Phos -GI/DVT prophylaxis: PPI, SCDs to bilateral lower extremities while in bed, avoid chemical anticoagulation to cleared by surgery 12/29: Patient underwent abdominal exploration, small bowel resection, small bowel anastomosis and ABThera wound VAC placement this a.m. Patient remains on AC mode ventilation with a rate of 24, tidal volume 500, FiO2 65% and PEEP of 6. Continue antibiotics per ID recommendations. Continue vasopressor support as needed. Continue TPN for nutritional support. 12/30: Patient currently with AC mode ventilation rate of 24, tidal volume 500, FiO2 60% and PEEP of 6. Patient underwent further surgery yesterday with a nother abdominal exploration, small bowel resection, small bowel anastomosis and replacement of the ABThera wound VAC. Patient continues to require vasopressor support with vasopressin and Levophed. Continue TPN for nutrition. Continue propofol and fentanyl for sedation. Continue Zosyn per ID recommendations. INITIATED ON HD PER NEPHRO 6/12: Patient currently with AC mode ventilation rate of 24, tidal volume 500, FiO2 50% and PEEP of 6. POD#12 s/p ex lap and small bowel resection for necrotic bowel secondary to incarcerated ventral hernia left with open abdomen. POD#9 s/p abdominal exploration with segmental small bowel resection. abthera placement POD#3 s/p abdominal exploration, small bowel resection for ischemia, abthera placement POD#2 s/p abdominal exploration with small bowel anastamosis and abthera vac placement Continue hemodialysis per nephrology recommendations. Surgery plans for abdominal washout and bowel examination on Saturday. If anastamosis looks viable and no other issues, surgery plans to close his abdomen. 01/01: Continue current ventilator settings per pulmonary monitor ABG. Continue antibiotics per ID recommendations. Surgery plans for abdominal washout and bowel examination. If anastamosis looks viable and no other issues, surgery plans to close his abdomen. Wean pressors to maintain MAP > 65. Continue TPN for nutritional support. Hemodialysis per nephrology recommendations. Prognosis remains guarded. 01/02: At the time my examination patient was only on vasopressin for vasopressor support, sedated on 30 mcg of propofol and 4 mcg of fentanyl. Patient was on CMV tidal volume 500, rate of 12, PEEP of 10 and 50% FiO2. Patient remains on TPN and with NG tube to low intermittent suction. Patient underwent a myocutaneous flap creation, abdominal wall component separation and placement of phasix mesh with surgery yesterday where his abdomen was closed and 2 LAURA drains were placed on either side of his midline between fascia and subcu tissue. Per infectious his antibiotics will continue until 5 days postop from a final surgery. Patient has increasing leukocytosis which are likely reactive to surgery and patient will have hemodialysis today for clearance and volume removal. Patient sedation and mechanical ventilation will be weaned for extubation. 01/03: Patient H/H is 6.2/18.5 and he is being transfused 2 units PRBC with hemodialysis today. Patient has slight hypokalemia but TPN has been adjusted to address potassium. Patient continues to have hyponatremia, hypochloremia and hyperphosphatemia closely improved. The time my examination patient sedated on fentanyl and propofol and LAURA drainage noted to be more serosanguineous. Patient was on assist control with TV 500, PEEP of 8, rate of 28 and FiO2 40%. Patient remains off vasopressor support. No acute overnight events reported 01/04: Patient sedated on propofol and fentanyl. RN reported bowel movement overnight. Precedex drip started. NG tube clamped and may start trickle tube feedings later if patient does not have high residuals. CCM continues to wean ventilation as tolerated. On my exam patient is on CMV tidal volume 500 rate of 28, PEEP of 8 and 40% FiO2. Patient is having periods of agitation and FiO2 had to be increased for hypoxia. Mucor species in tracheal aspirate but ID believes this is colonization. 01/05: Patient is severely agitated and received multiple IV push fentanyl. Patient was ultimately started on propofol. He received hemodialysis today. Patient had approximately 400 mL of NG output overnight. NG tube continues to be on suction. Leukocytosis worsened today. 01/06: Patient is agitated despite fentanyl pushes and Dilaudid was ordered, patient noted to be anemic with a hemoglobin of 6.5 and will be transfused 1 unit PRBC today. Nephrology does not plan to dialyze him today and to keep him on Saturday, , Saturday schedule. No acute events reported overnight. Patient NG tube residuals continue to decrease and surgery has cleared for trickle tube feeds which has been communicated to dietitian. 01/07: This this morning H/H resulted at 6.7/20.1 after 1 unit PRBC 6.7/21.8. Patient's ABG today shows respiratory acidosis and vent settings have been changed by CCM. Patient should receive hemodialysis today as he is on Saturday schedule. Overnight RN reported 700 mL of NG tube output over 12 hours. We will hold off on trickle feeds and continue TPN. At the time of my examination patient was sedated on propofol, fentanyl, Precedex and on CMV tidal volume 550, rate of 10, PEEP of 8 and 35% FiO2. We will order coags and stool guaiac to further investigate anemia. -01/09 stool pos for guiac; CT Chest/abd/pelvis -01/10: Patient this morning with elevated BP, likely secondary to pain vs ?Hx of Htn, Hydralazine PRN ordered and added to the patient, will monitor. Continue pain control. Wound care management and vent weaning when ok with surgery and Mobile Product Manager 01/12: Continue supportive care including pain control. Monitor for bowel movement. Continue off antibiotics per ID monitor. Controller Mechanic following for HD. 01/13/21 patient is seen and examined. Patient is still on vent. Wean to extubate as per critical care. Patient is off antibiotic as per infectious disease. Status post dialysis catheter placed in the right IJ. HD as per nephrology. Continue current management. Recheck CBC BMP in the morning. 01/14/21 patient seen and examined. Patient is still on vent. Patient is agitated. We will try to wean the sedation. We will start metoprolol 5 mg p.o. every 8 hours as needed for blood pressure. Patient is off antibiotic as per infectious disease. Continue hemodialysis as per nephrology. Continue current management. Critical care follow-up. Prognosis is guarded. Recheck CBC BMP in the morning 01/15: Remains with guarded prognosis, no clear evidence of renal recovery, still on the vent. Monitor H/H and repeat CT A/P if downward trend. Replace K. 01/16: Patient is hypokalemic today at 2.9, patient's urinalysis reveals UTI and patient is already on cefepime, vancomycin and fluconazole per ID. Patient's urine output noted to be 5030-0076 mL over the past couple days. Nephrology requested to hold off removal of Lawrence catheter as the patient seems to be in the diuretic phase of ATN and will withhold dialysis for now and evaluate. At the time my examination patient is sedated on propofol and Precedex on CMV tidal line 500, rate of 24, PEEP of 6 and 30% FiO2. Patient was febrile last night with a T-max of 102.7. Patient was cultured overnight. Wound care consult for abd wound with purulent drainage, culture sent. Hospitalist Physical - Constitutional Vitals: Temp Pulse Resp BP Pulse Ox 102.2 F H 102 H 32 H 148/80 95 01/16/21 11:31 01/16/21 11:41 01/16/21 11:15 01/16/21 11:41 01/16/21 11:41 General appearance: Present: well-nourished, obese, other (sedated) - EENT Eyes: Present: PERRL, EOM intact ENT: poor dentition - Neck Neck: Present: normal ROM - Respiratory Respiratory effort: normal Respiratory: bilateral: diminished - Cardiovascular Rhythm: regular Heart Sounds: Present: S1 & S2. Absent: systolic murmur, diastolic murmur - Extremities Extremities: no ischemia, pulses intact, pulses symmetrical, No edema, normal temperature, normal color Peripheral Pulses: within normal limits - Abdominal General gastrointestinal: soft, non-tender, non-distended, normal bowel sounds - Integumentary Integumentary: Present: warm, dry - Psychiatric Psychiatric: cooperative (follows commands) - Neurologic Neurologic: CNII-XII intact, no focal deficits, moves all extremities - Allied Health Allied health notes reviewed: nursing, RT, social work HEART Score - HEART Score EKG: Normal Age: < 45 Risk factors: No known risk factors Troponin: Troponin T < 0.010 ng/mL (0.00-0.029) 12/20/20 13:58 Troponin: < normal limit - Critical Actions Critical Actions: 0-3 pts:0.9-1.7%risk of adverse cardiac event.Candidate for discharge Results - Labs CBC & Chem 7: 01/16/21 04:30 01/16/21 04:30 Labs: Laboratory Last Values WBC 10.1 K/mm3 (4.5-11.0) 01/16/21 04:30 RBC 2.62 M/mm3 (3.65-5.03) L 01/16/21 04:30 Hgb 7.6 gm/dl (11.8-15.2) L 01/16/21 04:30 Hct 22.6 % (35.5-45.6) L 01/16/21 04:30 MCV 86 fl (84-94) 01/16/21 04:30 MCH 29 pg (28-32) 01/16/21 04:30 MCHC 34 % (32-34) 01/16/21 04:30 RDW 17.3 % (13.2-15.2) H 01/16/21 04:30 Plt Count 260 K/mm3 (140-440) 01/16/21 04:30 Lymph % (Auto) 6.5 % (13.4-35.0) L 01/14/21 05:00 [place] % (Auto) 2.5 % (0.0-7.3) 01/14/21 05:00 Eos % (Auto) 7.7 % (0.0-4.3) H 01/14/21 05:00 Baso % (Auto) 0.6 % (0.0-1.8) 01/14/21 05:00 Lymph # (Auto) 0.8 K/mm3 (1.2-5.4) L 01/14/21 05:00 [place] # (Auto) 0.3 K/mm3 (0.0-0.8) 01/14/21 05:00 Eos # (Auto) 1.0 K/mm3 (0.0-0.4) H 01/14/21 05:00 Baso # (Auto) 0.1 K/mm3 (0.0-0.1) 01/14/21 05:00 Add Manual Diff Complete 01/10/21 04:01 Total Counted 100 01/10/21 04:01 Seg Neutrophils % 82.7 % (40.0-70.0) H 01/14/21 05:00 Seg Neuts % (Manual) 95.0 % (40.0-70.0) H 01/10/21 04:01 Band Neutrophils % 2.0 % 01/10/21 04:01 Lymphocytes % (Manual) 3.0 % (13.4-35.0) L 01/10/21 04:01 Monocytes % (Manual) 1.0 % (0.0-7.3) 01/09/21 10:10 Metamyelocytes % 1.0 % 01/09/21 10:10 Myelocytes % 1.0 % 01/09/21 10:10 Nucleated RBC % Not Reportable 01/10/21 04:01 Seg Neutrophils # 10.2 K/mm3 (1.8-7.7) H 01/14/21 05:00 Seg Neutrophils # Man 12.0 K/mm3 (1.8-7.7) H 01/10/21 04:01 Band Neutrophils # 0.3 K/mm3 01/10/21 04:01 Lymphocytes # (Manual) 0.4 K/mm3 (1.2-5.4) L 01/10/21 04:01 Abs React Lymphs (Man) 0.0 K/mm3 01/10/21 04:01 Monocytes # (Manual) 0.0 K/mm3 (0.0-0.8) 01/10/21 04:01 Eosinophils # (Manual) 0.0 K/mm3 (0.0-0.4) 01/10/21 04:01 Basophils # (Manual) 0.0 K/mm3 (0.0-0.1) 01/10/21 04:01 Metamyelocytes # 0.0 K/mm3 01/10/21 04:01 Myelocytes # 0.0 K/mm3 01/10/21 04:01 Promyelocytes # 0.0 K/mm3 01/10/21 04:01 Blast Cells # 0.0 K/mm3 01/10/21 04:01 WBC Morphology Not Reportable 01/10/21 04:01 Hypersegmented Neuts Not Reportable 01/10/21 04:01 Hyposegmented Neuts Not Reportable 01/10/21 04:01 Hypogranular Neuts Not Reportable 01/10/21 04:01 Smudge Cells Not Reportable 01/10/21 04:01 Toxic Granulation Not Reportable 01/10/21 04:01 Toxic Vacuolation Not Reportable 01/10/21 04:01 Dohle Bodies Not Reportable 01/10/21 04:01 Pelger-Huet Anomaly Not Reportable 01/10/21 04:01 Mirian Rods Not Reportable 01/10/21 04:01 Platelet Estimate Consistent w auto 01/10/21 04:01 Clumped Platelets Not Reportable 01/10/21 04:01 Plt Clumps, EDTA Not Reportable 01/10/21 04:01 Large Platelets Not Reportable 01/10/21 04:01 Giant Platelets Not Reportable 01/10/21 04:01 Platelet Satelliting Not Reportable 01/10/21 04:01 Plt Morphology Comment Not Reportable 01/10/21 04:01 RBC Morphology Not Reportable 01/10/21 04:01 Dimorphic RBCs Not Reportable 01/10/21 04:01 Polychromasia Not Reportable 01/10/21 04:01 Hypochromasia Few 01/10/21 04:01 Poikilocytosis Not Reportable 01/10/21 04:01 Anisocytosis Few 01/10/21 04:01 Microcytosis Few 01/10/21 04:01 Macrocytosis Not Reportable 01/10/21 04:01 Spherocytes Not Reportable 01/10/21 04:01 Pappenheimer Bodies Not Reportable 01/10/21 04:01 Sickle Cells Not Reportable 01/10/21 04:01 Target Cells Not Reportable 01/10/21 04:01 Tear Drop Cells Not Reportable 01/10/21 04:01 Ovalocytes Not Reportable 01/10/21 04:01 Helmet Cells Not Reportable 01/10/21 04:01 [place] Bodies Not Reportable 01/10/21 04:01 [place] Rings Not Reportable 01/10/21 04:01 [place] Cells Not Reportable 01/10/21 04:01 Bite Cells Not Reportable 01/10/21 04:01 Crenated Cell Not Reportable 01/10/21 04:01 Elliptocytes Not Reportable 01/10/21 04:01 Acanthocytes (Spur) Not Reportable 01/10/21 04:01 Rouleaux Not Reportable 01/10/21 04:01 Hemoglobin C Crystals Not Reportable 01/10/21 04:01 Schistocytes Not Reportable 01/10/21 04:01 Malaria parasites Not Reportable 01/10/21 04:01 [place]ylon Bodies Not Reportable 01/10/21 04:01 Hem Pathologist Commnt No 01/10/21 04:01 PT 15.4 Sec. (12.2-14.9) H 01/10/21 04:01 INR 1.17 (0.87-1.13) H 01/10/21 04:01 APTT 40.2 Sec. (24.2-36.6) H 01/10/21 04:01 Fibrinogen 817 mg/dl (211-480) H 01/10/21 04:01 ABG pH 7.484 (7.320-7.450) H 01/13/21 03:14 POC ABG pCO2 34.8 mmHg (32.0-48.0) 01/13/21 03:14 ABG pCO2 37.9 mm Hg 01/05/21 03:50 POC ABG pO2 104.0 mmHg (83-108) 01/13/21 03:14 ABG pO2 136.8 mm Hg (80.0-90.0) H 01/05/21 03:50 POC ABG HCO3 25.6 01/13/21 03:14 ABG HCO3 22.4 mmol/L (20.0-26.0) 01/05/21 03:50 ABG O2 Saturation 98.3 (0-100) 01/13/21 03:14 ABG O2 Content 9.8 (0.0-44) 01/05/21 03:50 POC ABG Base Excess 2.1 01/13/21 03:14 ABG Base Excess -2.3 mmol/L (-2.0-3.0) L 01/05/21 03:50 ABG Hemoglobin 8.4 (12.0-17.5) L 01/13/21 03:14 ABG Oxyhemoglobin 97.0 (94-98) 01/13/21 03:14 ABG Carboxyhemoglobin 1.5 % (0.0-5.0) 01/05/21 03:50 ABG Methemoglobin 0.3 (0.0-1.5) 01/13/21 03:14 ABG Sodium 134.4 mmol/L (136.0-145.0) L 01/13/21 03:14 ABG Potassium 3.1 mmol/L (3.40-4.50) L 01/13/21 03:14 ABG Chloride 99.0 mmol/L (98-107) 01/13/21 03:14 ABG Glucose 117 mg/dL (65-95) H 01/13/21 03:14 Oxyhemoglobin 96.7 % (95.0-99.0) 01/05/21 03:50 Carboxyhemoglobin 1.0 (0.5-1.5) 01/13/21 03:14 FiO2 50 % 01/05/21 03:50 FiO2 % 35.0 01/13/21 03:14 Sodium 146 mmol/L (137-145) H 01/16/21 04:30 Potassium 2.9 mmol/L (3.6-5.0) L* 01/16/21 04:30 Chloride 103.2 mmol/L (98-107) 01/16/21 04:30 Carbon Dioxide 30 mmol/L (22-30) 01/16/21 04:30 Anion Gap 16 mmol/L 01/16/21 04:30 BUN 58 mg/dL (9-20) H 01/16/21 04:30 Creatinine 2.4 mg/dL (0.8-1.3) H 01/16/21 04:30 Estimated GFR 28 ml/min 01/16/21 04:30 BUN/Creatinine Ratio 24 % 01/16/21 04:30 Glucose 101 mg/dL (75-100) H 01/16/21 04:30 POC Glucose 94 mg/dL (70-105) 01/16/21 11:26 Lactic Acid 1.70 mmol/L (0.7-2.0) 12/20/20 16:20 Calcium 8.4 mg/dL (8.4-10.2) 01/16/21 04:30 Ionized Calcium 3.3 mg/dL (4.8-5.6) L 12/27/20 14:40 Phosphorus 4.90 mg/dL (2.5-4.5) H 01/12/21 10:00 Magnesium 1.80 mg/dL (1.7-2.3) 01/12/21 10:00 Total Bilirubin 0.50 mg/dL (0.1-1.2) 01/16/21 04:30 AST 19 units/L (5-40) 01/16/21 04:30 ALT 18 units/L (7-56) 01/16/21 04:30 Alkaline Phosphatase 118 units/L (35-129) 01/16/21 04:30 Troponin T < 0.010 ng/mL (0.00-0.029) 12/20/20 13:58 Total Protein 6.4 g/dL (6.3-8.2) 01/16/21 04:30 Albumin 2.1 g/dL (3.9-5) L 01/16/21 04:30 Albumin/Globulin Ratio 0.5 % 01/16/21 04:30 Triglycerides 153 mg/dL (2-149) H 01/12/21 10:00 Arterial Blood Glucose 117 mg/dL (65-95) H 01/13/21 03:14 Arterial Blood Ionized Calcium 4.5 mg/dL (4.6-5.3) L 01/13/21 03:14 Urine Color Yellow (Yellow) 01/16/21 Unknown Urine Turbidity Turbid (Clear) 01/16/21 Unknown Urine pH 6.0 (5.0-7.0) 01/16/21 Unknown Ur Specific [place] 1.010 (1.003-1.030) 01/16/21 Unknown Urine Protein 100 mg/dl mg/dL (Negative) 01/16/21 Unknown Urine Glucose (UA) Neg mg/dL (Negative) 01/16/21 Unknown Urine Ketones Neg mg/dL (Negative) 01/16/21 Unknown Urine Blood Mod (Negative) 01/16/21 Unknown Urine Nitrite Neg (Negative) 01/16/21 Unknown Urine Bilirubin Neg (Negative) 01/16/21 Unknown Urine Urobilinogen < 2.0 mg/dL (<2.0) 01/16/21 Unknown Ur Leukocyte Esterase Lg (Negative) 01/16/21 Unknown Urine WBC (Auto) > 182.0 /HPF (0.0-6.0) H 01/16/21 Unknown Urine RBC (Auto) 154.0 /HPF (0.0-6.0) 01/16/21 Unknown U Epithel Cells (Auto) < 1.0 /HPF (0-13.0) 12/20/20 Unknown Urine Bacteria (Auto) 4+ /HPF (Negative) 01/16/21 Unknown Urine WBC Clumps 3+ /HPF 01/16/21 Unknown Ur Renal Epithelial Cell 8 /LPF 01/16/21 Unknown Triple Phos Crystals 2+ 12/23/20 12:15 Hyaline Casts 11 /LPF 01/16/21 Unknown Urine Mucus Few /HPF 01/16/21 Unknown Urine Eosinophils None seen (None Seen) 12/23/20 12:15 Urine Creatinine 78.1 mg/dL (0.1-20.0) H 12/23/20 12:15 Urine Sodium 13 mmol/L 12/23/20 12:15 Fraction Sodium Excret 0.2 12/23/20 12:15 Random Vancomycin 7.9 ug/mL (0-40.0) 12/23/20 12:15 Coronavirus (PCR) Negative (Negative) 12/21/20 Unknown Hepatitis A IgM Ab Non-reactive (NonReactive) 12/30/20 14:40 Hep Bs Antigen Non-reactive (Negative) 12/30/20 14:40 Hep B Core IgM Ab Non-reactive (NonReactive) 12/30/20 14:40 Hepatitis C Antibody Non-reactive (NonReactive) 12/30/20 14:40 Blood Type A NEGATIVE 01/06/21 11:00 Antibody Screen Negative 01/06/21 11:00 Crossmatch See Detail 01/06/21 11:00 Microbiology: Microbiology 01/16/21 04:40 Peripheral/Venous Blood Culture - Preliminary Culture in Progress 01/16/21 04:50 Peripheral/Venous Blood Culture - Preliminary Culture in Progress [place]/IV: Voiding Method Indwelling Catheter Active Medications - Current Medications Current Medications: Generic Name Dose Route Start Last Admin Trade Name Freq PRN Reason Stop Dose Admin Acetaminophen 650 mg 01/16/21 03:57 01/16/21 11:30 Acetaminophen 325 Mg/10.15 Ml Oral Liqd Unit Dose FEEDTUBE 650 mg Q6H PRN Administration Non Cardiac Pain or Temp>100.5 Lipase/Protease/Amylase 1 each 01/07/21 08:44 Lipase 10,500/Protease 25,000/Amylase 43,750 (Units) Dr Maharaj FEEDTUBE PRN PRN For Clogged Feeding Tube Bisacodyl 10 mg 12/30/20 11:00 01/16/21 09:05 Bisacodyl 10 Mg Rect Supp DE 10 mg QDAY ASCENCION Administration Dextrose 50 ml 12/24/20 10:49 Dextrose 50% In Water (25gm) 50 Ml Syringe IV Q30MIN PRN Hypoglycemia Protocol Famotidine 20 mg 12/26/20 10:00 01/16/21 09:05 Famotidine 20 Mg/2 Ml Inj IV 20 mg DAILY ASCENCION Administration Fentanyl 1 applic 01/11/21 14:00 01/14/21 09:44 Fentanyl 50 Mcg/Hr Patch 72hr TD 1 applic Q3D ASCENCION Administration Heparin Sodium (Porcine) 5,000 unit 01/06/21 14:00 01/16/21 05:44 Heparin 5,000 Unit/1 Ml Vial SUB-Q 5,000 unit Q8HR ASCENCION Administration Hydromorphone HCl 1 mg 01/11/21 14:00 01/16/21 09:05 Hydromorphone 1 Mg/1 Ml Inj IV 1 mg Q4HR ASCENCION Administration Hydromorphone HCl 0.5 mg 01/12/21 10:10 01/16/21 10:16 Hydromorphone 1 Mg/1 Ml Inj IV 0.5 mg Q4H PRN Administration Pain , Severe (7-10) Hydromorphone HCl 0.25 mg 01/12/21 10:11 01/15/21 15:40 Hydromorphone 1 Mg/1 Ml Inj IV 0.25 mg Q4H PRN Administration Pain, Moderate (4-6) Hydrophilic Ointment 1 applic 12/20/20 21:58 Lip Therapy Vaseline TP Q2HR PRN Dry Lips Propofol 1,000 mg in 100 mls @ 3.606 mls/hr 12/20/20 22:00 01/16/21 09:52 Diprivan 10 Mg/Ml IV 15 mcg/kg/min TITR ASCENCION 10.818 mls/hr Administration Protocol 5 MCG/KG/MIN Sodium Chloride 100 mls @ 999 mls/hr 01/10/21 09:08 Nacl 0.9% IV MARILU PRN Hypotension Nicardipine HCl 50 mg/ Sodium 250 mls @ 25 mls/hr 01/11/21 09:00 01/15/21 04:32 Chloride IV 0 mg/hr TITR ASCENCION 0 mls/hr Titration Protocol 5 MG/HR Dexmedetomidine HCl 1,000 mcg/ 260 mls @ 7.322 mls/hr 01/15/21 01:00 01/16/21 12:24 Sodium Chloride IV 1.2 mcg/kg/hr TITRATE ASCENCION 43.93 mls/hr Administration Protocol 0.2 MCG/KG/HR Cefepime HCl 1 gm in 100 mls @ 200 mls/hr 01/16/21 12:00 01/16/21 12:26 Cefepime/Ns 1 Gm/100 Ml IV 200 mls/hr Q12H ASCENCION Administration Protocol Fluconazole 200 mg in 100 mls @ 100 mls/hr 01/16/21 13:00 01/16/21 12:26 Diflucan IV 100 mls/hr Q24H ASCENCION Administration Protocol Insulin Human Regular 0 units 12/28/20 00:00 01/16/21 12:27 Insulin Regular, Human 100 Units/1 Ml SUB-Q Not Given Q6H ASCENCION Protocol Metoclopramide HCl 5 mg 01/09/21 18:00 01/16/21 12:26 Metoclopramide 10 Mg/2 Ml Inj IV 01/16/21 17:59 5 mg Q6HR ASCENCION Administration Metoprolol Tartrate 5 mg 01/14/21 13:37 01/15/21 12:42 Metoprolol Tartrate 5 Mg/5 Ml Inj IV 5 mg Q6H PRN Administration SBP >/=160 Multi-Ingred Cream/Lotion/Oil/Oint 1 applic 12/20/20 21:58 01/03/21 01:13 Mineral Oil/Petrolatum, White Ophth Oint 3.5 Gm OU 1 applic Q4HR PRN Administration Dry Eye(s) Ondansetron HCl 4 mg 01/11/21 08:09 Ondansetron 4 Mg/2 Ml Inj IV Q8H PRN Nausea And Vomiting Simple Syrup 15 ml 01/07/21 08:44 Simple Syrup 15 Ml FEEDTUBE PRN PRN Hypoglycemia Simple Syrup 30 ml 01/07/21 08:44 Simple Syrup 15 Ml FEEDTUBE PRN PRN Hypoglycemia Sodium Bicarbonate 325 mg 01/07/21 08:44 Sodium Bicarbonate 325 Mg Tab FEEDTUBE PRN PRN For Clogged Feeding Tube Sodium Chloride 10 ml 12/20/20 22:00 01/16/21 09:05 Sodium Chloride 0.9% 10 Ml Flush Syringe IV 10 ml BID ASCENCION Administration Sodium Chloride 10 ml 12/20/20 16:42 Sodium Chloride 0.9% 10 Ml Flush Syringe IV PRN PRN LINE FLUSH Nutrition/Malnutrition Assess - Dietary Evaluation Nutrition/Malnutrition Findings: Nutrition Notes Start: 12/21/20 09:06 Freq: Status: Active Protocol: Document 01/16/21 11:07 PIETRO (Rec: 01/16/21 11:10 [id number]) Nutrition Notes Initial or Follow up Reassessment Current Diagnosis Acute Kidney Injury,Coronary Artery Disease,Sepsis, Hypertension,Small Bowel Obstruction,Hyperlipidemia Other Pertinent Diagnosis gangrenous small bowel, s/p small bowel ressection, peritonitis Current Diet Nepro 1.8 at 40 ml/hr Labs/Tests Na 146 K 2.9 BUN 58 Cr 2.4 Pertinent Medications Propofol at 10.818 ml/hr (285 kcal) Height 6 ft Weight 120.7 kg [place] Body Weight (kg) 80.90 BMI 36.1 Weight change and time frame weight change noted. Weight Status Obese Subjective/Other Information FU for TF tolerance. Observed Nepro 1.8 running at goal rate . RN state pt is tolerating. Percent of energy/protein needs met: 100%/57% Burn Absent Trauma Absent Current % PO Negligible Minimum of two criteria No #2 Nutrition Diagnosis Increased nutrient needs ( specify in comment below) Diagnosis Progress(for reassessment Continues documentation) #1 Nutrition Diagnosis Inadequate oral intake Diagnosis Progress(for reassessment Continues documentation) Is patient on ventilator? Yes Is Patient Ambulatory and/or Out of Bed No REE-([facility]-confined to bed) 2476.212 Kcal/Kg value to use for calculation 14 Approximate Energy Requirements Using 1690 kcal/Kg Calculation Used for Recommendations Kcal/kg Additional Notes Pro needs >1.2g/kg adjBW: > 127g/day Fluid needs per MD. Nutrition Intervention Nutrition Support: Nepro 40 ml/hr is reached. Flush 175 ml q4h or per MD. Kcal 1,728 Protein (gm) 72 Fluid (mL) 779 Goal #1 TF tolerance Goal #2 Meet at least 75% of kcal and protein needs via TF Follow-Up By: 01/18/21 Additional Comments F/U for TF tolerance <GILDARDOVINICIUS Perkins - Last Filed: 01/26/21 07:19> Assessment and Plan Assessment and plan: I saw and evaluated the patient. I agree with the findings and the plan of care as documented in the Nurse Practitioner's~note, with the following corrections and additions. Hospitalist Physical - Constitutional Vitals: Temp Pulse Resp BP Pulse Ox 98 F 85 27 H 105/61 100 01/24/21 08:00 01/24/21 11:24 01/24/21 09:01 01/24/21 11:24 01/24/21 11:24 HEART Score - HEART Score Troponin: Troponin T < 0.010 ng/mL (0.00-0.029) 12/20/20 13:58 Results - Labs CBC & Chem 7: 01/22/21 10:08 01/24/21 08:42 Labs: Laboratory Last Values WBC 9.6 K/mm3 (4.5-11.0) 01/22/21 10:08 RBC 3.11 M/mm3 (3.65-5.03) L 01/22/21 10:08 Hgb 8.9 gm/dl (11.8-15.2) L 01/22/21 10:08 Hct 27.5 % (35.5-45.6) L 01/22/21 10:08 MCV 88 fl (84-94) 01/22/21 10:08 MCH 29 pg (28-32) 01/22/21 10:08 MCHC 32 % (32-34) 01/22/21 10:08 RDW 16.9 % (13.2-15.2) H 01/22/21 10:08 Plt Count 310 K/mm3 (140-440) 01/22/21 10:08 Lymph % (Auto) 6.5 % (13.4-35.0) L 01/14/21 05:00 [place] % (Auto) 2.5 % (0.0-7.3) 01/14/21 05:00 Eos % (Auto) 7.7 % (0.0-4.3) H 01/14/21 05:00 Baso % (Auto) 0.6 % (0.0-1.8) 01/14/21 05:00 Lymph # (Auto) 0.8 K/mm3 (1.2-5.4) L 01/14/21 05:00 [place] # (Auto) 0.3 K/mm3 (0.0-0.8) 01/14/21 05:00 Eos # (Auto) 1.0 K/mm3 (0.0-0.4) H 01/14/21 05:00 Baso # (Auto) 0.1 K/mm3 (0.0-0.1) 01/14/21 05:00 Add Manual Diff Complete 01/10/21 04:01 Total Counted 100 01/10/21 04:01 Seg Neutrophils % 82.7 % (40.0-70.0) H 01/14/21 05:00 Seg Neuts % (Manual) 95.0 % (40.0-70.0) H 01/10/21 04:01 Band Neutrophils % 2.0 % 01/10/21 04:01 Lymphocytes % (Manual) 3.0 % (13.4-35.0) L 01/10/21 04:01 Monocytes % (Manual) 1.0 % (0.0-7.3) 01/09/21 10:10 Metamyelocytes % 1.0 % 01/09/21 10:10 Myelocytes % 1.0 % 01/09/21 10:10 Nucleated RBC % Not Reportable 01/10/21 04:01 Seg Neutrophils # 10.2 K/mm3 (1.8-7.7) H 01/14/21 05:00 Seg Neutrophils # Man 12.0 K/mm3 (1.8-7.7) H 01/10/21 04:01 Band Neutrophils # 0.3 K/mm3 01/10/21 04:01 Lymphocytes # (Manual) 0.4 K/mm3 (1.2-5.4) L 01/10/21 04:01 Abs React Lymphs (Man) 0.0 K/mm3 01/10/21 04:01 Monocytes # (Manual) 0.0 K/mm3 (0.0-0.8) 01/10/21 04:01 Eosinophils # (Manual) 0.0 K/mm3 (0.0-0.4) 01/10/21 04:01 Basophils # (Manual) 0.0 K/mm3 (0.0-0.1) 01/10/21 04:01 Metamyelocytes # 0.0 K/mm3 01/10/21 04:01 Myelocytes # 0.0 K/mm3 01/10/21 04:01 Promyelocytes # 0.0 K/mm3 01/10/21 04:01 Blast Cells # 0.0 K/mm3 01/10/21 04:01 WBC Morphology Not Reportable 01/10/21 04:01 Hypersegmented Neuts Not Reportable 01/10/21 04:01 Hyposegmented Neuts Not Reportable 01/10/21 04:01 Hypogranular Neuts Not Reportable 01/10/21 04:01 Smudge Cells Not Reportable 01/10/21 04:01 Toxic Granulation Not Reportable 01/10/21 04:01 Toxic Vacuolation Not Reportable 01/10/21 04:01 Dohle Bodies Not Reportable 01/10/21 04:01 Pelger-Huet Anomaly Not Reportable 01/10/21 04:01 Mirian Rods Not Reportable 01/10/21 04:01 Platelet Estimate Consistent w auto 01/10/21 04:01 Clumped Platelets Not Reportable 01/10/21 04:01 Plt Clumps, EDTA Not Reportable 01/10/21 04:01 Large Platelets Not Reportable 01/10/21 04:01 Giant Platelets Not Reportable 01/10/21 04:01 Platelet Satelliting Not Reportable 01/10/21 04:01 Plt Morphology Comment Not Reportable 01/10/21 04:01 RBC Morphology Not Reportable 01/10/21 04:01 Dimorphic RBCs Not Reportable 01/10/21 04:01 Polychromasia Not Reportable 01/10/21 04:01 Hypochromasia Few 01/10/21 04:01 Poikilocytosis Not Reportable 01/10/21 04:01 Anisocytosis Few 01/10/21 04:01 Microcytosis Few 01/10/21 04:01 Macrocytosis Not Reportable 01/10/21 04:01 Spherocytes Not Reportable 01/10/21 04:01 Pappenheimer Bodies Not Reportable 01/10/21 04:01 Sickle Cells Not Reportable 01/10/21 04:01 Target Cells Not Reportable 01/10/21 04:01 Tear Drop Cells Not Reportable 01/10/21 04:01 Ovalocytes Not Reportable 01/10/21 04:01 Helmet Cells Not Reportable 01/10/21 04:01 [place] Bodies Not Reportable 01/10/21 04:01 [place] Rings Not Reportable 01/10/21 04:01 [place] Cells Not Reportable 01/10/21 04:01 Bite Cells Not Reportable 01/10/21 04:01 Crenated Cell Not Reportable 01/10/21 04:01 Elliptocytes Not Reportable 01/10/21 04:01 Acanthocytes (Spur) Not Reportable 01/10/21 04:01 Rouleaux Not Reportable 01/10/21 04:01 Hemoglobin C Crystals Not Reportable 01/10/21 04:01 Schistocytes Not Reportable 01/10/21 04:01 Malaria parasites Not Reportable 01/10/21 04:01 [place] Bodies Not Reportable 01/10/21 04:01 Hem Pathologist Commnt No 01/10/21 04:01 PT 15.4 Sec. (12.2-14.9) H 01/10/21 04:01 INR 1.17 (0.87-1.13) H 01/10/21 04:01 APTT 40.2 Sec. (24.2-36.6) H 01/10/21 04:01 Fibrinogen 817 mg/dl (211-480) H 01/10/21 04:01 ABG pH 7.512 (7.320-7.450) H 01/19/21 05:00 POC ABG pCO2 32.5 mmHg (32.0-48.0) 01/19/21 05:00 ABG pCO2 37.9 mm Hg 01/05/21 03:50 POC ABG pO2 47.8 mmHg (83-108) L 01/19/21 05:00 ABG pO2 136.8 mm Hg (80.0-90.0) H 01/05/21 03:50 POC ABG HCO3 25.5 01/19/21 05:00 ABG HCO3 22.4 mmol/L (20.0-26.0) 01/05/21 03:50 ABG O2 Saturation 84.4 (0-100) 01/19/21 05:00 ABG O2 Content 9.8 (0.0-44) 01/05/21 03:50 POC ABG Base Excess 2.6 01/19/21 05:00 ABG Base Excess -2.3 mmol/L (-2.0-3.0) L 01/05/21 03:50 ABG Hemoglobin 8.9 (12.0-17.5) L 01/19/21 05:00 ABG Oxyhemoglobin 83.3 (94-98) L 01/19/21 05:00 ABG Carboxyhemoglobin 1.5 % (0.0-5.0) 01/05/21 03:50 ABG Methemoglobin 0.3 (0.0-1.5) 01/19/21 05:00 ABG Sodium 151.5 mmol/L (136.0-145.0) H 01/19/21 05:00 ABG Potassium 2.9 mmol/L (3.40-4.50) L 01/19/21 05:00 ABG Chloride 117.0 mmol/L (98-107) H 01/19/21 05:00 ABG Glucose 111 mg/dL (65-95) H 01/19/21 05:00 Oxyhemoglobin 96.7 % (95.0-99.0) 01/05/21 03:50 Carboxyhemoglobin 1.0 (0.5-1.5) 01/19/21 05:00 FiO2 50 % 01/05/21 03:50 FiO2 % 30.0 01/19/21 05:00 Sodium 152 mmol/L (137-145) H 01/24/21 08:42 Potassium 4.5 mmol/L (3.6-5.0) 01/24/21 08:42 Chloride 115.3 mmol/L (98-107) H 01/24/21 08:42 Carbon Dioxide 25 mmol/L (22-30) 01/24/21 08:42 Anion Gap 16 mmol/L 01/24/21 08:42 BUN 37 mg/dL (9-20) H 01/24/21 08:42 Creatinine 1.0 mg/dL (0.8-1.3) 01/24/21 08:42 Estimated GFR > 60 ml/min 01/24/21 08:42 BUN/Creatinine Ratio 37 % 01/24/21 08:42 Glucose 123 mg/dL (75-100) H 01/24/21 08:42 POC Glucose 99 mg/dL (70-105) 01/24/21 06:13 Lactic Acid 1.70 mmol/L (0.7-2.0) 12/20/20 16:20 Calcium 8.5 mg/dL (8.4-10.2) 01/24/21 08:42 Ionized Calcium 3.3 mg/dL (4.8-5.6) L 12/27/20 14:40 Phosphorus 4.40 mg/dL (2.5-4.5) 01/17/21 04:30 Magnesium 1.90 mg/dL (1.7-2.3) 01/20/21 07:25 Total Bilirubin 0.50 mg/dL (0.1-1.2) 01/16/21 04:30 AST 19 units/L (5-40) 01/16/21 04:30 ALT 18 units/L (7-56) 01/16/21 04:30 Alkaline Phosphatase 118 units/L (35-129) 01/16/21 04:30 Troponin T < 0.010 ng/mL (0.00-0.029) 12/20/20 13:58 C-Reactive Protein 4.00 mg/dL (0.00-1.30) H 01/22/21 17:05 Total Protein 6.4 g/dL (6.3-8.2) 01/16/21 04:30 Albumin 2.1 g/dL (3.9-5) L 01/16/21 04:30 Albumin/Globulin Ratio 0.5 % 01/16/21 04:30 Triglycerides 216 mg/dL (2-149) H 01/17/21 04:30 Procalcitonin 0.10 ng/mL (<0.15) 01/22/21 17:05 Arterial Blood Glucose 111 mg/dL (65-95) H 01/19/21 05:00 Arterial Blood Ionized Calcium 4.3 mg/dL (4.6-5.3) L 01/19/21 05:00 Urine Color Yellow (Yellow) 01/20/21 07:25 Urine Turbidity Clear (Clear) 01/20/21 07:25 Urine pH 6.0 (5.0-7.0) 01/20/21 07:25 Ur Specific [place] 1.008 (1.003-1.030) 01/20/21 07:25 Urine Protein 30 mg/dl mg/dL (Negative) 01/20/21 07:25 Urine Glucose (UA) Neg mg/dL (Negative) 01/20/21 07:25 Urine Ketones Neg mg/dL (Negative) 01/20/21 07:25 Urine Blood Lg (Negative) 01/20/21 07:25 Urine Nitrite Neg (Negative) 01/20/21 07:25 Urine Bilirubin Neg (Negative) 01/20/21 07:25 Urine Urobilinogen < 2.0 mg/dL (<2.0) 01/20/21 07:25 Ur Leukocyte Esterase Mod (Negative) 01/20/21 07:25 Urine WBC (Auto) 30.0 /HPF (0.0-6.0) H 01/20/21 07:25 Urine RBC (Auto) 5.0 /HPF (0.0-6.0) 01/20/21 07:25 U Epithel Cells (Auto) < 1.0 /HPF (0-13.0) 01/20/21 07:25 Urine Bacteria (Auto) 1+ /HPF (Negative) 01/20/21 07:25 Urine WBC Clumps 3+ /HPF 01/16/21 Unknown Ur Renal Epithelial Cell 8 /LPF 01/16/21 Unknown Triple Phos Crystals 2+ 12/23/20 12:15 Hyaline Casts 11 /LPF 01/16/21 Unknown Urine Mucus Few /HPF 01/16/21 Unknown Urine Eosinophils None seen (None Seen) 12/23/20 12:15 Urine Creatinine 17.6 mg/dL (0.1-20.0) 01/19/21 Unknown Urine Sodium 87 mmol/L 01/19/21 Unknown Fraction Sodium Excret 0.2 12/23/20 12:15 Random Vancomycin 5.8 ug/mL (0-40.0) 01/17/21 04:30 Coronavirus (PCR) Negative (Negative) 12/21/20 Unknown Hepatitis A IgM Ab Non-reactive (NonReactive) 12/30/20 14:40 Hep Bs Antigen Non-reactive (Negative) 12/30/20 14:40 Hep B Core IgM Ab Non-reactive (NonReactive) 12/30/20 14:40 Hepatitis C Antibody Non-reactive (NonReactive) 12/30/20 14:40 Blood Type A NEGATIVE 01/06/21 11:00 Antibody Screen Negative 01/06/21 11:00 Crossmatch See Detail 01/06/21 11:00 Microbiology: Microbiology 01/20/21 13:01 Peripheral/Venous Blood Culture - Final NO GROWTH AFTER 5 DAYS 01/20/21 11:43 Peripheral/Venous Blood Culture - Final NO GROWTH AFTER 5 DAYS [place]/IV: Voiding Method Indwelling Catheter Nutrition/Malnutrition Assess - Dietary Evaluation Nutrition/Malnutrition Findings: Nutrition Notes Start: 12/21/20 09:06 Freq: Status: Discharge Protocol: Document 01/23/21 11:45 MK (Rec: 01/23/21 11:51 MK [id number]) Nutrition Notes Initial or Follow up Reassessment Current Diagnosis Acute Kidney Injury,Coronary Artery Disease,Sepsis, Hypertension,Small Bowel Obstruction,Hyperlipidemia Other Pertinent Diagnosis gangrenous small bowel, s/p small bowel ressection, peritonitis Current Diet Nepro 1.8 at 40 ml/hr Labs/Tests Na 154 BUN 41 Pertinent Medications Reviewed Height 6 ft Weight 103.1 kg [place] Body Weight (kg) 80.90 BMI 30.8 Weight change and time frame pt has edema Weight Status Obese Subjective/Other Information FU for TF tolerance. Per RN, pt tolerating TF. Observed TF at 40ml/hr. Informed RN of correct goal rate. Per chart, pt receiving 300 ml water flush q4h. Percent of energy/protein needs met: 87%/46% Burn Absent Trauma Absent Current % PO Negligible Minimum of two criteria No Fluid Accumulation Moderate to Severe (severe) #2 Nutrition Diagnosis Increased nutrient needs ( specify in comment below) Diagnosis Progress(for reassessment Continues documentation) #1 Nutrition Diagnosis Inadequate oral intake Diagnosis Progress(for reassessment Continues documentation) Is patient on ventilator? Yes Is Patient Ambulatory and/or Out of Bed No REE-([facility]-confined to bed) 2265.228 Kcal/Kg value to use for calculation 16 Approximate Energy Requirements Using 1650 kcal/Kg Calculation Used for Recommendations Kcal/kg Additional Notes Pro needs >162g(>2g/kgIBW: 80. 90) Fluid needs per MD. Nutrition Intervention Change Diet Order: Continue Nutrition Support: Osmolite 1.5 at 50 ml/hr. Flush 200 ml q2h for hypernatermia or per MD. Once resolved, flush 150 ml q4h or per MD. Kcal 1,800 Protein (gm) 75 Fluid (mL) 914 Goal #1 TF tolerance Goal #2 Meet at least 75% of kcal and protein needs via TF Follow-Up By: 01/25/21 Additional Comments FU for TF tolerance
[2021-01-16] MEDS ORDERED: POTASSIUM CHLORIDE 20 MEQ 20 MEQ/100 ML BAG IV SCH (17:00)
[2021-01-16] MEDS ORDERED: POTASSIUM CHLORIDE 20 MEQ PACKET FEEDTUBE SCH (17:00)
--- NOTE | 2021-01-16 18:46 | Event Note ---
I called Mr. Fernandez brother, James Fernandez at [phone] and he spoke about his concerns about the continous ventilatory support since admit. he stated that he is certain that the patient will be able to be liberated from the vent. He spoke about the need for trach and possible liberation from vent. He asked about sacral wounds and I did inform od wound found at [facility] which was cultured and [facility] was consulted for.
[2021-01-17] MEDS: CEFEPIME/NS 1 GM/100 ML 1 GM/100 ML BAG IV SCH ×2 (00:24→13:18)
[2021-01-17] MEDS: HYDROmorphone 1 MG/1 ML INJ IV SCH ×6 (01:19→22:26)
[2021-01-17] MEDS: dexmedeTOMIDine 1,000 MCG in SODIUM CHLORIDE 0.9% 250ML 250 ML IV SCH ×3 (03:35→19:52)
[2021-01-17 05:06] LABS: Hematocrit 24.1 % (35.5-45.6); Hemoglobin 7.9 gm/dl (11.8-15.2); Mean Corpuscular HGB Conc 33 % (32-34); Mean Corpuscular Volume 86 fl (84-94); Platelet Count 298 K/mm3 (140-440); Red Cell Distribution Width 17.1 % (13.2-15.2)
[2021-01-17] MEDS: HEPARIN 5,000 UNIT/1 ML VIAL SUB-Q SCH ×3 (05:58→22:28)
[2021-01-17] MEDS: POTASSIUM CHLORIDE 20 MEQ PACKET FEEDTUBE SCH ×2 (05:58→10:48)
[2021-01-17] MEDS ORDERED: MAGNESIUM SULFATE 2 GM/50 ML BAG IV ONE ×2 (09:00→11:00)
[2021-01-17] MEDS ORDERED: POTASSIUM CHLORIDE 20 MEQ 20 MEQ/100 ML BAG IV ONE (09:00)
--- NOTE | 2021-01-17 09:14 | Progress Note ---
Assessment and Plan Impression * Nonoliguric acute kidney injury secondary to ATN --HD initiated December 30 * Incarcerated hernia with ischemic bowel. Status post bowel resection * Hypernatremia, * Fluid overload * Sepsis * Respiratory failure, intubated * Hyperkalemia * Metabolic Acidosis, Gap * Hypoalbuminemia * Anemia Recommendations * Patient with good UOP. Patient seems to be in diuretic phase of ATN. * Serum creatinine is also trending down. Shall hold dialysis for today. Monitor for renal recovery * Would recommend maintaining Lawrence catheter for now * Transfuse for Hb < 7 * TPN per nutrition/primary * Pressors prn to maintain MAP greater than 65 * Avoid nephrotoxins * Monitor fluid status and electrolytes * Replace potassium * Add hypotonic IV fluid with added potassium Subjective Date of service: 01/17/21 Principal diagnosis: SBO and necrosis of large part of small intestine Interval history: Patient remains on the ventilator. Currently on 50% FiO2. Sedated. Oxygen saturation 100%. Objective - Vital Signs Vital signs: Vital Signs - 12hr 01/16/21 01/16/21 01/16/21 21:15 21:30 21:45 Temperature Pulse Rate 88 87 84 Pulse Rate [ From Monitor] Respiratory 32 H 31 H 25 H Rate Blood Pressure 132/67 142/67 138/70 O2 Sat by Pulse 94 95 97 Oximetry 01/16/21 01/16/21 01/16/21 22:00 22:15 22:16 Temperature Pulse Rate 86 85 Pulse Rate [ From Monitor] Respiratory 30 H 31 H 30 H Rate Blood Pressure 136/71 141/71 O2 Sat by Pulse 94 96 Oximetry 01/16/21 01/16/21 01/16/21 22:30 22:33 22:45 Temperature Pulse Rate 84 85 86 Pulse Rate [ 93 H From Monitor] Respiratory 30 H 30 H 30 H Rate Blood Pressure 146/72 128/74 O2 Sat by Pulse 98 97 96 Oximetry 01/16/21 01/16/21 01/16/21 22:46 23:00 23:15 Temperature Pulse Rate 83 81 Pulse Rate [ From Monitor] Respiratory 25 H 29 H 31 H Rate Blood Pressure 142/68 133/68 O2 Sat by Pulse 97 96 Oximetry 01/16/21 01/16/21 01/16/21 23:20 23:30 23:38 Temperature 100.8 F H Pulse Rate 82 82 Pulse Rate [ From Monitor] Respiratory 32 H 28 H Rate Blood Pressure 133/68 121/76 O2 Sat by Pulse 97 97 Oximetry 01/16/21 01/16/21 01/17/21 23:40 23:45 00:00 Temperature Pulse Rate 77 80 80 Pulse Rate [ 80 From Monitor] Respiratory 27 H 32 H 29 H Rate Blood Pressure 134/69 141/68 O2 Sat by Pulse 97 96 97 Oximetry 01/17/21 01/17/21 01/17/21 00:15 00:30 00:45 Temperature Pulse Rate 81 81 80 Pulse Rate [ From Monitor] Respiratory 32 H 31 H 31 H Rate Blood Pressure 137/69 137/67 140/69 O2 Sat by Pulse 97 95 97 Oximetry 01/17/21 01/17/21 01/17/21 00:47 01:00 01:15 Temperature Pulse Rate 77 77 79 Pulse Rate [ From Monitor] Respiratory 27 H 31 H Rate Blood Pressure 141/68 139/68 133/69 O2 Sat by Pulse 99 95 95 Oximetry 01/17/21 01/17/21 01/17/21 01:19 01:30 01:45 Temperature Pulse Rate 79 81 Pulse Rate [ From Monitor] Respiratory 32 H 31 H 30 H Rate Blood Pressure 138/69 143/74 O2 Sat by Pulse 96 97 Oximetry 01/17/21 01/17/21 01/17/21 01:49 02:00 02:15 Temperature Pulse Rate 82 80 Pulse Rate [ From Monitor] Respiratory 30 H 31 H 29 H Rate Blood Pressure 148/80 145/73 O2 Sat by Pulse 98 96 Oximetry 01/17/21 01/17/21 01/17/21 02:30 02:45 03:00 Temperature Pulse Rate 79 79 80 Pulse Rate [ From Monitor] Respiratory 40 H 29 H 26 H Rate Blood Pressure 148/71 151/74 149/79 O2 Sat by Pulse 98 99 100 Oximetry 01/17/21 01/17/21 01/17/21 03:10 03:15 03:30 Temperature 99.4 F Pulse Rate 84 86 Pulse Rate [ From Monitor] Respiratory 29 H 20 Rate Blood Pressure 139/70 139/70 O2 Sat by Pulse 97 99 Oximetry 01/17/21 01/17/21 01/17/21 03:45 04:00 04:03 Temperature Pulse Rate 80 90 91 H Pulse Rate [ 80 From Monitor] Respiratory 30 H 31 H Rate Blood Pressure 135/65 140/70 140/70 O2 Sat by Pulse 100 98 98 Oximetry 01/17/21 01/17/21 01/17/21 04:15 04:30 04:45 Temperature Pulse Rate 93 H 88 89 Pulse Rate [ From Monitor] Respiratory 31 H 24 25 H Rate Blood Pressure 159/75 158/82 149/23 O2 Sat by Pulse 88 99 95 Oximetry 01/17/21 01/17/21 01/17/21 05:00 05:15 05:30 Temperature Pulse Rate 86 83 82 Pulse Rate [ From Monitor] Respiratory 32 H 29 H 29 H Rate Blood Pressure 149/23 146/68 140/71 O2 Sat by Pulse 96 95 95 Oximetry 01/17/21 01/17/21 01/17/21 05:45 06:00 06:15 Temperature Pulse Rate 82 81 84 Pulse Rate [ From Monitor] Respiratory 31 H 25 H 26 H Rate Blood Pressure 149/69 146/68 133/75 O2 Sat by Pulse 96 99 99 Oximetry 01/17/21 01/17/21 01/17/21 06:28 06:30 07:56 Temperature 99.9 F H Pulse Rate 84 Pulse Rate [ From Monitor] Respiratory 30 H 25 H Rate Blood Pressure 133/75 O2 Sat by Pulse 100 Oximetry 01/17/21 08:27 Temperature Pulse Rate 82 Pulse Rate [ From Monitor] Respiratory Rate Blood Pressure 128/65 O2 Sat by Pulse 98 Oximetry - General Appearance General appearance: well-developed, well-nourished, appears stated age EENT: PERRL, mucous membranes moist Neck: no JVD, no thyromegaly, no carotid bruit, supple, other (Right IJ Vas-Cath in place) Respiratory: Present: Ronchi (Few scattered rhonchi) Cardiology: regular, normal heart rate Gastrointestinal: other (Midline dressing noted. Abdominal binder in place.) Integumentary: other (Trace edema) - Lab 01/17/21 04:30 01/17/21 04:30 Most recent lab results ABG pH 7.484 (7.320-7.450) H 01/13/21 03:14 ABG pCO2 37.9 mm Hg 01/05/21 03:50 ABG pO2 136.8 mm Hg (80.0-90.0) H 01/05/21 03:50 ABG HCO3 22.4 mmol/L (20.0-26.0) 01/05/21 03:50 ABG O2 Saturation 98.3 (0-100) 01/13/21 03:14 Calcium 8.0 mg/dL (8.4-10.2) L 01/17/21 04:30 Phosphorus 4.40 mg/dL (2.5-4.5) 01/17/21 04:30 Magnesium 1.40 mg/dL (1.7-2.3) L 01/17/21 04:30 Urine Creatinine 78.1 mg/dL (0.1-20.0) H 12/23/20 12:15 Urine Sodium 13 mmol/L 12/23/20 12:15 Medications & Allergies - Medications Allergies/Adverse Reactions: Allergies Iodinated Contrast Media Adverse Reaction (Verified 09/04/18 14:20) Unknown Home Medications: Home Medications Medication Instructions Recorded Confirmed Last Taken Type Aspirin 81 mg PO DAILY #30 tab.chew 09/08/18 01/04/21 03/31/20 09:28 Rx AtorvaSTATin [Lipitor] 80 mg PO QHS tablet 05/08/19 01/04/21 03/28/20 Rx Albuterol Sulfate [Proventil Hfa] 13.4 gm IH Q6H #1 hfa.aer.ad 04/01/20 01/04/21 Unknown Rx Clopidogrel [Plavix] 75 mg PO DAILY #30 tablet 04/01/20 01/04/21 Unknown Rx Gabapentin 300 mg PO BID@0700,1800 30 Days 04/01/20 01/04/21 Unknown Rx capsule Gabapentin 600 mg PO QHS 30 Days capsule 04/01/20 01/04/21 Unknown Rx Metoprolol [Lopressor TAB] 25 mg PO BID #60 tablet 04/01/20 01/04/21 Unknown Rx [place]-3/Dha/Epa/Fish Oil [[place] 3 1 each PO BID #60 capsule 04/01/20 01/04/21 Unknown Rx 500 Softgel] Tiotropium [place] [Spiriva] 2 puff IH DAILY #30 cap.w.dev 04/01/20 01/04/21 Unknown Rx Ubidecarenone [Co Q-10] 10 mg PO BID #60 tab 04/01/20 01/04/21 03/29/20 Rx cilostazoL [Pletal] 50 mg PO BID 30 Days tablet 04/01/20 01/04/21 Unknown Rx oxyCODONE /ACETAMINOPHEN [Percocet 2 tab PO Q6H PRN tablet 04/01/20 01/04/21 Unknown Rx 5/325 mg] Phosphorus #1 [K-Phos Neutral] 250 mg PO QID 2 Days #8 tablet 09/14/20 01/04/21 Unknown Rx Active Medications: Generic Name Dose Route Start Last Admin Trade Name Freq PRN Reason Stop Dose Admin Acetaminophen 650 mg 01/16/21 03:57 01/16/21 19:49 Acetaminophen 325 Mg/10.15 Ml Oral Liqd Unit Dose FEEDTUBE 650 mg Q6H PRN Administration Non Cardiac Pain or Temp>100.5 Lipase/Protease/Amylase 1 each 01/07/21 08:44 Lipase 10,500/Protease 25,000/Amylase 43,750 (Units) Dr Nicko FEEDTUBE PRN PRN For Clogged Feeding Tube Bisacodyl 10 mg 12/30/20 11:00 01/16/21 09:05 Bisacodyl 10 Mg Rect Supp NE 10 mg QDAY ASCENCION Administration Dextrose 50 ml 12/24/20 10:49 Dextrose 50% In Water (25gm) 50 Ml Syringe IV Q30MIN PRN Hypoglycemia Protocol Famotidine 20 mg 01/17/21 10:00 Famotidine 20 Mg Tab PO BID ASCENCION Fentanyl 1 applic 01/11/21 14:00 01/14/21 09:44 Fentanyl 50 Mcg/Hr Patch 72hr TD 1 applic Q3D ASCENCION Administration Heparin Sodium (Porcine) 5,000 unit 01/06/21 14:00 01/17/21 05:58 Heparin 5,000 Unit/1 Ml Vial SUB-Q 5,000 unit Q8HR ASCENCION Administration Hydromorphone HCl 1 mg 01/11/21 14:00 01/17/21 06:00 Hydromorphone 1 Mg/1 Ml Inj IV 1 mg Q4HR ASCENCION Administration Hydromorphone HCl 0.5 mg 01/12/21 10:10 01/16/21 10:16 Hydromorphone 1 Mg/1 Ml Inj IV 0.5 mg Q4H PRN Administration Pain , Severe (7-10) Hydromorphone HCl 0.25 mg 01/12/21 10:11 01/15/21 15:40 Hydromorphone 1 Mg/1 Ml Inj IV 0.25 mg Q4H PRN Administration Pain, Moderate (4-6) Hydrophilic Ointment 1 applic 12/20/20 21:58 Lip Therapy Vaseline TP Q2HR PRN Dry Lips Propofol 1,000 mg in 100 mls @ 3.606 mls/hr 12/20/20 22:00 01/17/21 08:54 Diprivan 10 Mg/Ml IV 15 mcg/kg/min TITR ASCENCION 10.818 mls/hr Administration Protocol 5 MCG/KG/MIN Sodium Chloride 100 mls @ 999 mls/hr 01/10/21 09:08 Nacl 0.9% IV MARILU PRN Hypotension Nicardipine HCl 50 mg/ Sodium 250 mls @ 25 mls/hr 01/11/21 09:00 01/15/21 04:32 Chloride IV 0 mg/hr TITR ASCENCION 0 mls/hr Titration Protocol 5 MG/HR Dexmedetomidine HCl 1,000 mcg/ 260 mls @ 7.322 mls/hr 01/15/21 01:00 01/17/21 03:35 Sodium Chloride IV 1.2 mcg/kg/hr TITRATE ASCENCION 43.93 mls/hr Administration Protocol 0.2 MCG/KG/HR Cefepime HCl 1 gm in 100 mls @ 200 mls/hr 01/16/21 12:00 01/17/21 00:24 Cefepime/Ns 1 Gm/100 Ml IV 200 mls/hr Q12H ASCENCION Administration Protocol Fluconazole 200 mg in 100 mls @ 100 mls/hr 01/16/21 13:00 01/16/21 12:26 Diflucan IV 100 mls/hr Q24H ASCENCION Administration Protocol Magnesium Sulfate 2 gm in 50 mls @ 25 mls/hr 01/17/21 09:00 Magnesium Sulfate 2gm/50ml IV 01/17/21 10:59 ONCE ONE Potassium Chloride 20 meq in 100 mls @ 100 mls/hr 01/17/21 09:00 Kcl 20meq/100ml IV 01/17/21 09:59 ONCE ONE Insulin Human Regular 0 units 12/28/20 00:00 01/16/21 23:28 Insulin Regular, Human 100 Units/1 Ml SUB-Q Not Given Q6H ASCENCION Protocol Metoprolol Tartrate 5 mg 01/14/21 13:37 01/15/21 12:42 Metoprolol Tartrate 5 Mg/5 Ml Inj IV 5 mg Q6H PRN Administration SBP >/=160 Multi-Ingred Cream/Lotion/Oil/Oint 1 applic 12/20/20 21:58 01/03/21 01:13 Mineral Oil/Petrolatum, White Ophth Oint 3.5 Gm OU 1 applic Q4HR PRN Administration Dry Eye(s) Ondansetron HCl 4 mg 01/11/21 08:09 Ondansetron 4 Mg/2 Ml Inj IV Q8H PRN Nausea And Vomiting Potassium Chloride 40 meq 01/17/21 06:00 01/17/21 05:58 Potassium Chloride 20 Meq Packet FEEDTUBE 01/17/21 10:01 40 meq Q4H ASCENCION Administration Simple Syrup 15 ml 01/07/21 08:44 Simple Syrup 15 Ml FEEDTUBE PRN PRN Hypoglycemia Simple Syrup 30 ml 01/07/21 08:44 Simple Syrup 15 Ml FEEDTUBE PRN PRN Hypoglycemia Sodium Bicarbonate 325 mg 01/07/21 08:44 Sodium Bicarbonate 325 Mg Tab FEEDTUBE PRN PRN For Clogged Feeding Tube Sodium Chloride 10 ml 12/20/20 22:00 01/16/21 22:18 Sodium Chloride 0.9% 10 Ml Flush Syringe IV 10 ml BID ASCENCION Administration Sodium Chloride 10 ml 12/20/20 16:42 01/17/21 06:01 Sodium Chloride 0.9% 10 Ml Flush Syringe IV 10 ml PRN PRN Administration LINE FLUSH
--- NOTE | 2021-01-17 09:20 | Progress Note ---
Assessment and Plan 60 y/o male with abdominal catastrophe, s/p ex-lap with open abdomen, ventilated for pain control and support. 01/17/21: WIll discuss renal but most likely vascath should be removed. Abx per ID. Renal has requested the haley stay in for urine output measurement and I agree. Waiting to here from insurer about lTACH as patient will need it for vent recovery and weaning. Monitor BP closely, may need to start replacing fluids 1:1. Will defer to renal on type of fluid given electrolyte imbalances. Prognosis still remains guarded. 01/16/21: Follow up blood cultures from last night. need to send ua as well. Renal holding HD today, hopeful patient is in the diuretic phase of ATN. Will have RT place patient on PSV trial today to see how he does. Hold on abx therapy for right now. If cultures come back positive, will need to remove right IJ vascath which was just placed on Saturday at the suggestion of infection control and infectious days. completed letter for insurance for patient today, hopeful will be LTACH approved soon. 01/13/21: Place IJ vascath today. Added PRN dilaudid on lebron of scheduled dilaudid. Goal is to not put patient back on continuous drip for pain so that we can facilitate weaning. needs peer to peer for LTACH approval. Continue supportive measures. 01/12/21: Patient getting dialysis today. Continue to control pain, added PRN dilauded on top of scheduled dosing as patient still gets very agitated off diprovan. Will discuss with renal plans for future HD as ID and Infection control are very concerned about the groin catheter. If permanent dialysis then will ask that IR place permcath. if they feel intermittent, then will place IJ and remove femoral vascath. 01/11/21: Will increase pain regimen. Scheduled the dilaudid to q4 and add a fent patch. Would like to avoid drip as we are trying to actively wean patient from mechanical ventilation. Spoke with CM who states LTACH has accepted patient but we are waiting on insurance authorization. HgB is stable this am and reviewed surgery and IR recs. I do no think the area of fluid needs to be sampled. 01/10/21: Spoke with surgery this am about CT findings. Will discuss with IR their thoughts on fluid. Not concerned about infection in that area. Main reason for CT was to see if we could figure out where blood was going as it was coming out of his bottom or NG contents. This is appears to be something small and slow, like a venous issues. Hopefully it has sealed off at this time. HgB is up to 8 this am patient did not get blood on yesterday. Off fent now, will continue to wean Diprovan and Precedex as tolerated. Spoke with CM and asked to send out to LTACH's but will steal try to aggressively wean. Making good urine, hopeful kidney's will recover. Will ask renal about other ways to remove volume in third spacing (albumin, lasix etc). Prognosis still remains guarded. Continue TPN for now. 01/09/21: Will obtain contrasted CT of abdomen and pelvis to look for potential pockets of blood or bleeding. Spoke with renal and they feel kidneys are recovering but ok with HD tomorrow if needed post dye load. Will attempt to wean Fent more and use prn dilaudid. Will start reglan to help with gut motili ty. Hopeful to be off TPN soon. Once sedation is off, can start SBT's. CCT 31 minutes. Subjective Date of service: 01/17/21 Principal diagnosis: SBO and necrosis of large part of small intestine Interval history: Fever curve trending down. STarted on empiric abx therapy by ID on yesterday. UA is dirty. Blood Cultures with GNR, still not speciated yet. Would culture was done per nursing on yesterday as well. patient is diuresing very well and is now hypokalemic and hypernatremic from it. BUN and Cr are stable. Failed PSV yesterday with tachypnea, up into the 60's. Objective Vital Signs - 12hr 01/16/21 01/16/21 01/16/21 21:15 21:30 21:45 Temperature Pulse Rate 88 87 84 Pulse Rate [ From Monitor] Respiratory 32 H 31 H 25 H Rate Blood Pressure 132/67 142/67 138/70 O2 Sat by Pulse 94 95 97 Oximetry 01/16/21 01/16/21 01/16/21 22:00 22:15 22:16 Temperature Pulse Rate 86 85 Pulse Rate [ From Monitor] Respiratory 30 H 31 H 30 H Rate Blood Pressure 136/71 141/71 O2 Sat by Pulse 94 96 Oximetry 01/16/21 01/16/21 01/16/21 22:30 22:33 22:45 Temperature Pulse Rate 84 85 86 Pulse Rate [ 93 H From Monitor] Respiratory 30 H 30 H 30 H Rate Blood Pressure 146/72 128/74 O2 Sat by Pulse 98 97 96 Oximetry 01/16/21 01/16/21 01/16/21 22:46 23:00 23:15 Temperature Pulse Rate 83 81 Pulse Rate [ From Monitor] Respiratory 25 H 29 H 31 H Rate Blood Pressure 142/68 133/68 O2 Sat by Pulse 97 96 Oximetry 01/16/21 01/16/21 01/16/21 23:20 23:30 23:38 Temperature 100.8 F H Pulse Rate 82 82 Pulse Rate [ From Monitor] Respiratory 32 H 28 H Rate Blood Pressure 133/68 121/76 O2 Sat by Pulse 97 97 Oximetry 01/16/21 01/16/21 01/17/21 23:40 23:45 00:00 Temperature Pulse Rate 77 80 80 Pulse Rate [ 80 From Monitor] Respiratory 27 H 32 H 29 H Rate Blood Pressure 134/69 141/68 O2 Sat by Pulse 97 96 97 Oximetry 01/17/21 01/17/21 01/17/21 00:15 00:30 00:45 Temperature Pulse Rate 81 81 80 Pulse Rate [ From Monitor] Respiratory 32 H 31 H 31 H Rate Blood Pressure 137/69 137/67 140/69 O2 Sat by Pulse 97 95 97 Oximetry 01/17/21 01/17/21 01/17/21 00:47 01:00 01:15 Temperature Pulse Rate 77 77 79 Pulse Rate [ From Monitor] Respiratory 27 H 31 H Rate Blood Pressure 141/68 139/68 133/69 O2 Sat by Pulse 99 95 95 Oximetry 01/17/21 01/17/21 01/17/21 01:19 01:30 01:45 Temperature Pulse Rate 79 81 Pulse Rate [ From Monitor] Respiratory 32 H 31 H 30 H Rate Blood Pressure 138/69 143/74 O2 Sat by Pulse 96 97 Oximetry 01/17/21 01/17/21 01/17/21 01:49 02:00 02:15 Temperature Pulse Rate 82 80 Pulse Rate [ From Monitor] Respiratory 30 H 31 H 29 H Rate Blood Pressure 148/80 145/73 O2 Sat by Pulse 98 96 Oximetry 01/17/21 01/17/21 01/17/21 02:30 02:45 03:00 Temperature Pulse Rate 79 79 80 Pulse Rate [ From Monitor] Respiratory 40 H 29 H 26 H Rate Blood Pressure 148/71 151/74 149/79 O2 Sat by Pulse 98 99 100 Oximetry 01/17/21 01/17/21 01/17/21 03:10 03:15 03:30 Temperature 99.4 F Pulse Rate 84 86 Pulse Rate [ From Monitor] Respiratory 29 H 20 Rate Blood Pressure 139/70 139/70 O2 Sat by Pulse 97 99 Oximetry 01/17/21 01/17/21 01/17/21 03:45 04:00 04:03 Temperature Pulse Rate 80 90 91 H Pulse Rate [ 80 From Monitor] Respiratory 30 H 31 H Rate Blood Pressure 135/65 140/70 140/70 O2 Sat by Pulse 100 98 98 Oximetry 01/17/21 01/17/21 01/17/21 04:15 04:30 04:45 Temperature Pulse Rate 93 H 88 89 Pulse Rate [ From Monitor] Respiratory 31 H 24 25 H Rate Blood Pressure 159/75 158/82 149/23 O2 Sat by Pulse 88 99 95 Oximetry 01/17/21 01/17/21 01/17/21 05:00 05:15 05:30 Temperature Pulse Rate 86 83 82 Pulse Rate [ From Monitor] Respiratory 32 H 29 H 29 H Rate Blood Pressure 149/23 146/68 140/71 O2 Sat by Pulse 96 95 95 Oximetry 01/17/21 01/17/21 01/17/21 05:45 06:00 06:15 Temperature Pulse Rate 82 81 84 Pulse Rate [ From Monitor] Respiratory 31 H 25 H 26 H Rate Blood Pressure 149/69 146/68 133/75 O2 Sat by Pulse 96 99 99 Oximetry 01/17/21 01/17/21 01/17/21 06:28 06:30 07:56 Temperature 99.9 F H Pulse Rate 84 Pulse Rate [ From Monitor] Respiratory 30 H 25 H Rate Blood Pressure 133/75 O2 Sat by Pulse 100 Oximetry 01/17/21 08:27 Temperature Pulse Rate 82 Pulse Rate [ From Monitor] Respiratory Rate Blood Pressure 128/65 O2 Sat by Pulse 98 Oximetry Constitutional: other (critically ill on ventilator and back on sedation) Eyes: non-icteric ENT: oropharynx moist Neck: supple Effort: normal Ascultation: Bilateral: other (coarse BS bilaterally) Cardiovascular: other (tachy, RR; no mrg) Gastrointestinal: other (abdomen open) Integumentary: normal Extremities: no cyanosis, no edema, pink and warm Neurologic: other (sedated) CBC and BMP: 01/17/21 04:30 01/17/21 04:30 ABG, PT/INR, D-dimer: ABG ABG pH 7.484 (7.320-7.450) H 01/13/21 03:14 POC ABG pCO2 34.8 mmHg (32.0-48.0) 01/13/21 03:14 ABG pCO2 37.9 mm Hg 01/05/21 03:50 POC ABG pO2 104.0 mmHg (83-108) 01/13/21 03:14 ABG pO2 136.8 mm Hg (80.0-90.0) H 01/05/21 03:50 POC ABG HCO3 25.6 01/13/21 03:14 ABG O2 Saturation 98.3 (0-100) 01/13/21 03:14 PT/INR, D-dimer PT 15.4 Sec. (12.2-14.9) H 01/10/21 04:01 INR 1.17 (0.87-1.13) H 01/10/21 04:01 Abnormal lab findings: Abnormal Labs 12/20/20 12/20/20 12/20/20 13:58 13:58 13:58 WBC 41.1 H* RBC 5.59 H Hgb 16.2 H Hct 47.7 H MCV MCHC RDW 15.5 H Plt Count 486 H Lymph % (Auto) Eos % (Auto) Lymph # (Auto) Eos # (Auto) Seg Neutrophils % Seg Neuts % (Manual) Lymphocytes % (Manual) Seg Neutrophils # Seg Neutrophils # Man Lymphocytes # (Manual) Monocytes # (Manual) PT INR APTT Fibrinogen ABG pH POC ABG pCO2 POC ABG pO2 ABG pO2 ABG Base Excess ABG Hemoglobin ABG Oxyhemoglobin ABG Sodium ABG Potassium ABG Chloride ABG Glucose Carboxyhemoglobin Sodium 130 L Potassium Chloride 80.7 L Carbon Dioxide BUN 37 H Creatinine Glucose 101 H POC Glucose Lactic Acid 3.20 H* Calcium Ionized Calcium Phosphorus Magnesium AST Alkaline Phosphatase 142 H Total Protein 6.2 L Albumin 2.2 L Triglycerides Arterial Blood Glucose Arterial Blood Ionized Calcium Urine WBC (Auto) Urine Creatinine Crossmatch 12/20/20 12/20/20 12/20/20 13:58 20:35 21:30 WBC RBC Hgb Hct MCV MCHC RDW Plt Count Lymph % (Auto) Eos % (Auto) Lymph # (Auto) Eos # (Auto) Seg Neutrophils % Seg Neuts % (Manual) Lymphocytes % (Manual) Seg Neutrophils # Seg Neutrophils # Man Lymphocytes # (Manual) Monocytes # (Manual) PT INR APTT 49.4 H Fibrinogen ABG pH 7.313 L POC ABG pCO2 POC ABG pO2 ABG pO2 104.4 H ABG Base Excess ABG Hemoglobin ABG Oxyhemoglobin ABG Sodium ABG Potassium ABG Chloride ABG Glucose Carboxyhemoglobin Sodium Potassium Chloride Carbon Dioxide BUN Creatinine Glucose POC Glucose 122 H Lactic Acid Calcium Ionized Calcium Phosphorus Magnesium AST Alkaline Phosphatase Total Protein Albumin Triglycerides Arterial Blood Glucose Arterial Blood Ionized Calcium Urine WBC (Auto) Urine Creatinine Crossmatch 12/21/20 12/21/20 12/21/20 03:06 08:14 08:14 WBC 23.9 H RBC Hgb Hct MCV MCHC RDW 15.7 H Plt Count Lymph % (Auto) Eos % (Auto) Lymph # (Auto) Eos # (Auto) Seg Neutrophils % Seg Neuts % (Manual) 91.0 H Lymphocytes % (Manual) 3.0 L Seg Neutrophils # Seg Neutrophils # Man 21.7 H Lymphocytes # (Manual) 0.7 L Monocytes # (Manual) 1.4 H PT INR APTT Fibrinogen ABG pH 7.464 H POC ABG pCO2 POC ABG pO2 202.9 H ABG pO2 ABG Base Excess ABG Hemoglobin ABG Oxyhemoglobin ABG Sodium 133.7 L ABG Potassium ABG Chloride ABG Glucose 122 H Carboxyhemoglobin Sodium Potassium Chloride Carbon Dioxide BUN 46 H Creatinine Glucose 103 H POC Glucose Lactic Acid Calcium 6.6 L D Ionized Calcium Phosphorus Magnesium AST Alkaline Phosphatase Total Protein 5.4 L Albumin 2.3 L Triglycerides Arterial Blood Glucose 122 H Arterial Blood Ionized Calcium 3.5 L Urine WBC (Auto) Urine Creatinine Crossmatch 12/21/20 12/21/20 12/22/20 17:18 21:28 04:45 WBC 22.9 H RBC Hgb Hct MCV MCHC RDW 15.7 H Plt Count Lymph % (Auto) Eos % (Auto) Lymph # (Auto) Eos # (Auto) Seg Neutrophils % Seg Neuts % (Manual) Lymphocytes % (Manual) Seg Neutrophils # Seg Neutrophils # Man Lymphocytes # (Manual) Monocytes # (Manual) PT INR APTT Fibrinogen ABG pH POC ABG pCO2 POC ABG pO2 ABG pO2 ABG Base Excess ABG Hemoglobin ABG Oxyhemoglobin ABG Sodium ABG Potassium ABG Chloride ABG Glucose Carboxyhemoglobin Sodium Potassium Chloride Carbon Dioxide BUN Creatinine Glucose POC Glucose 108 H Lactic Acid Calcium Ionized Calcium 4.1 L Phosphorus Magnesium AST Alkaline Phosphatase Total Protein Albumin Triglycerides Arterial Blood Glucose Arterial Blood Ionized Calcium Urine WBC (Auto) Urine Creatinine Crossmatch 12/22/20 12/22/20 12/22/20 04:45 05:00 11:38 WBC RBC Hgb Hct MCV MCHC RDW Plt Count Lymph % (Auto) Eos % (Auto) Lymph # (Auto) Eos # (Auto) Seg Neutrophils % Seg Neuts % (Manual) Lymphocytes % (Manual) Seg Neutrophils # Seg Neutrophils # Man Lymphocytes # (Manual) Monocytes # (Manual) PT INR APTT Fibrinogen ABG pH 7.462 H POC ABG pCO2 POC ABG pO2 ABG pO2 ABG Base Excess ABG Hemoglobin ABG Oxyhemoglobin ABG Sodium ABG Potassium ABG Chloride ABG Glucose 118 H Carboxyhemoglobin Sodium 146 H Potassium Chloride Carbon Dioxide BUN 45 H Creatinine Glucose 116 H POC Glucose 115 H Lactic Acid Calcium 6.9 L Ionized Calcium Phosphorus Magnesium AST Alkaline Phosphatase Total Protein Albumin Triglycerides Arterial Blood Glucose 118 H Arterial Blood Ionized Calcium 3.8 L Urine WBC (Auto) Urine Creatinine Crossmatch 12/22/20 12/23/20 12/23/20 23:26 04:43 04:45 WBC 22.2 H RBC Hgb Hct MCV MCHC RDW 16.1 H Plt Count Lymph % (Auto) Eos % (Auto) Lymph # (Auto) Eos # (Auto) Seg Neutrophils % Seg Neuts % (Manual) Lymphocytes % (Manual) Seg Neutrophils # Seg Neutrophils # Man Lymphocytes # (Manual) Monocytes # (Manual) PT INR APTT Fibrinogen ABG pH POC ABG pCO2 POC ABG pO2 ABG pO2 ABG Base Excess ABG Hemoglobin ABG Oxyhemoglobin ABG Sodium 147.4 H ABG Potassium ABG Chloride 112.0 H ABG Glucose 130 H Carboxyhemoglobin 0.4 L Sodium Potassium Chloride Carbon Dioxide BUN Creatinine Glucose POC Glucose 110 H Lactic Acid Calcium Ionized Calcium Phosphorus Magnesium AST Alkaline Phosphatase Total Protein Albumin Triglycerides Arterial Blood Glucose 130 H Arterial Blood Ionized Calcium 3.8 L Urine WBC (Auto) Urine Creatinine Crossmatch 12/23/20 12/23/20 12/23/20 04:45 05:17 11:22 WBC RBC Hgb Hct MCV MCHC RDW Plt Count Lymph % (Auto) Eos % (Auto) Lymph # (Auto) Eos # (Auto) Seg Neutrophils % Seg Neuts % (Manual) Lymphocytes % (Manual) Seg Neutrophils # Seg Neutrophils # Man Lymphocytes # (Manual) Monocytes # (Manual) PT INR APTT Fibrinogen ABG pH POC ABG pCO2 POC ABG pO2 ABG pO2 ABG Base Excess ABG Hemoglobin ABG Oxyhemoglobin ABG Sodium ABG Potassium ABG Chloride ABG Glucose Carboxyhemoglobin Sodium 154 H D Potassium Chloride 110.9 H Carbon Dioxide BUN 54 H Creatinine 1.8 H Glucose 115 H POC Glucose 116 H 130 H Lactic Acid Calcium 7.0 L Ionized Calcium Phosphorus Magnesium AST Alkaline Phosphatase Total Protein Albumin Triglycerides Arterial Blood Glucose Arterial Blood Ionized Calcium Urine WBC (Auto) Urine Creatinine Crossmatch 12/23/20 12/23/20 12/23/20 12:15 12:15 23:15 WBC RBC Hgb Hct MCV MCHC RDW Plt Count Lymph % (Auto) Eos % (Auto) Lymph # (Auto) Eos # (Auto) Seg Neutrophils % Seg Neuts % (Manual) Lymphocytes % (Manual) Seg Neutrophils # Seg Neutrophils # Man Lymphocytes # (Manual) Monocytes # (Manual) PT INR APTT Fibrinogen ABG pH POC ABG pCO2 POC ABG pO2 ABG pO2 ABG Base Excess ABG Hemoglobin ABG Oxyhemoglobin ABG Sodium ABG Potassium ABG Chloride ABG Glucose Carboxyhemoglobin Sodium 154 H Potassium Chloride Carbon Dioxide BUN Creatinine 1.5 H Glucose POC Glucose 132 H Lactic Acid Calcium Ionized Calcium Phosphorus Magnesium AST Alkaline Phosphatase Total Protein Albumin Triglycerides Arterial Blood Glucose Arterial Blood Ionized Calcium Urine WBC (Auto) Urine Creatinine 78.1 H Crossmatch 12/24/20 12/24/20 12/24/20 04:19 04:30 04:30 WBC 18.3 H RBC Hgb Hct MCV MCHC RDW 16.5 H Plt Count Lymph % (Auto) Eos % (Auto) Lymph # (Auto) Eos # (Auto) Seg Neutrophils % Seg Neuts % (Manual) Lymphocytes % (Manual) Seg Neutrophils # Seg Neutrophils # Man Lymphocytes # (Manual) Monocytes # (Manual) PT INR APTT Fibrinogen ABG pH POC ABG pCO2 POC ABG pO2 ABG pO2 ABG Base Excess ABG Hemoglobin ABG Oxyhemoglobin ABG Sodium 149.7 H ABG Potassium ABG Chloride 116.0 H ABG Glucose 180 H Carboxyhemoglobin Sodium 155 H Potassium Chloride 116.1 H Carbon Dioxide BUN 52 H Creatinine 1.5 H Glucose 175 H POC Glucose Lactic Acid Calcium 6.8 L Ionized Calcium Phosphorus Magnesium 3.00 H AST Alkaline Phosphatase Total Protein 5.7 L Albumin 1.8 L Triglycerides Arterial Blood Glucose 180 H Arterial Blood Ionized Calcium 3.7 L Urine WBC (Auto) Urine Creatinine Crossmatch 12/24/20 12/24/20 12/24/20 05:24 11:21 18:05 WBC RBC Hgb Hct MCV MCHC RDW Plt Count Lymph % (Auto) Eos % (Auto) Lymph # (Auto) Eos # (Auto) Seg Neutrophils % Seg Neuts % (Manual) Lymphocytes % (Manual) Seg Neutrophils # Seg Neutrophils # Man Lymphocytes # (Manual) Monocytes # (Manual) PT INR APTT Fibrinogen ABG pH POC ABG pCO2 POC ABG pO2 ABG pO2 ABG Base Excess ABG Hemoglobin ABG Oxyhemoglobin ABG Sodium ABG Potassium ABG Chloride ABG Glucose Carboxyhemoglobin Sodium Potassium Chloride Carbon Dioxide BUN Creatinine Glucose POC Glucose 153 H 154 H 133 H Lactic Acid Calcium Ionized Calcium Phosphorus Magnesium AST Alkaline Phosphatase Total Protein Albumin Triglycerides Arterial Blood Glucose Arterial Blood Ionized Calcium Urine WBC (Auto) Urine Creatinine Crossmatch 12/25/20 12/25/20 12/25/20 04:00 07:00 07:00 WBC 17.6 H RBC Hgb Hct MCV MCHC 31 L RDW 16.0 H Plt Count Lymph % (Auto) Eos % (Auto) Lymph # (Auto) Eos # (Auto) Seg Neutrophils % Seg Neuts % (Manual) Lymphocytes % (Manual) Seg Neutrophils # Seg Neutrophils # Man Lymphocytes # (Manual) Monocytes # (Manual) PT INR APTT Fibrinogen ABG pH POC ABG pCO2 POC ABG pO2 ABG pO2 ABG Base Excess ABG Hemoglobin ABG Oxyhemoglobin ABG Sodium 152.5 H ABG Potassium ABG Chloride 119.0 H ABG Glucose 136 H Carboxyhemoglobin Sodium Potassium Chloride Carbon Dioxide BUN Creatinine Glucose POC Glucose Lactic Acid Calcium Ionized Calcium Phosphorus Magnesium 2.70 H AST Alkaline Phosphatase Total Protein Albumin Triglycerides Arterial Blood Glucose 136 H Arterial Blood Ionized Calcium 3.7 L Urine WBC (Auto) Urine Creatinine Crossmatch 12/25/20 12/25/20 12/25/20 07:00 11:24 16:32 WBC RBC Hgb Hct MCV MCHC RDW Plt Count Lymph % (Auto) Eos % (Auto) Lymph # (Auto) Eos # (Auto) Seg Neutrophils % Seg Neuts % (Manual) Lymphocytes % (Manual) Seg Neutrophils # Seg Neutrophils # Man Lymphocytes # (Manual) Monocytes # (Manual) PT INR APTT Fibrinogen ABG pH POC ABG pCO2 POC ABG pO2 ABG pO2 ABG Base Excess ABG Hemoglobin ABG Oxyhemoglobin ABG Sodium ABG Potassium ABG Chloride ABG Glucose Carboxyhemoglobin Sodium 156 H Potassium Chloride 118.0 H Carbon Dioxide BUN 44 H Creatinine 1.7 H Glucose 126 H POC Glucose 110 H 126 H Lactic Acid Calcium 6.9 L Ionized Calcium Phosphorus Magnesium AST Alkaline Phosphatase Total Protein Albumin Triglycerides Arterial Blood Glucose Arterial Blood Ionized Calcium Urine WBC (Auto) Urine Creatinine Crossmatch 12/25/20 12/25/20 12/26/20 18:18 23:23 03:30 WBC RBC Hgb Hct MCV MCHC RDW Plt Count Lymph % (Auto) Eos % (Auto) Lymph # (Auto) Eos # (Auto) Seg Neutrophils % Seg Neuts % (Manual) Lymphocytes % (Manual) Seg Neutrophils # Seg Neutrophils # Man Lymphocytes # (Manual) Monocytes # (Manual) PT INR APTT Fibrinogen ABG pH POC ABG pCO2 POC ABG pO2 ABG pO2 ABG Base Excess ABG Hemoglobin 11.8 L ABG Oxyhemoglobin ABG Sodium ABG Potassium 4.7 H ABG Chloride 114.0 H ABG Glucose 132 H Carboxyhemoglobin Sodium 151 H Potassium Chloride 114.3 H Carbon Dioxide BUN 51 H Creatinine 2.6 H D Glucose 122 H POC Glucose 115 H Lactic Acid Calcium 6.4 L Ionized Calcium Phosphorus Magnesium AST Alkaline Phosphatase Total Protein Albumin Triglycerides Arterial Blood Glucose 132 H Arterial Blood Ionized Calcium 3.6 L Urine WBC (Auto) Urine Creatinine Crossmatch 12/26/20 12/26/20 12/26/20 04:55 06:01 06:01 WBC 21.6 H RBC Hgb Hct MCV MCHC 31 L RDW 16.5 H Plt Count 136 L Lymph % (Auto) Eos % (Auto) Lymph # (Auto) Eos # (Auto) Seg Neutrophils % Seg Neuts % (Manual) Lymphocytes % (Manual) Seg Neutrophils # Seg Neutrophils # Man Lymphocytes # (Manual) Monocytes # (Manual) PT INR APTT Fibrinogen ABG pH POC ABG pCO2 POC ABG pO2 ABG pO2 ABG Base Excess ABG Hemoglobin ABG Oxyhemoglobin ABG Sodium ABG Potassium ABG Chloride ABG Glucose Carboxyhemoglobin Sodium 173 H* D Potassium 6.1 H* D Chloride 137.0 H Carbon Dioxide BUN 73 H Creatinine 3.8 H Glucose 125 H POC Glucose 112 H Lactic Acid Calcium 6.2 L Ionized Calcium Phosphorus 5.70 H D Magnesium 2.90 H AST Alkaline Phosphatase Total Protein Albumin Triglycerides Arterial Blood Glucose Arterial Blood Ionized Calcium Urine WBC (Auto) Urine Creatinine Crossmatch 12/26/20 12/26/20 12/26/20 08:33 11:19 22:00 WBC RBC Hgb Hct MCV MCHC RDW Plt Count Lymph % (Auto) Eos % (Auto) Lymph # (Auto) Eos # (Auto) Seg Neutrophils % Seg Neuts % (Manual) Lymphocytes % (Manual) Seg Neutrophils # Seg Neutrophils # Man Lymphocytes # (Manual) Monocytes # (Manual) PT INR APTT Fibrinogen ABG pH POC ABG pCO2 POC ABG pO2 ABG pO2 ABG Base Excess ABG Hemoglobin ABG Oxyhemoglobin ABG Sodium ABG Potassium ABG Chloride ABG Glucose Carboxyhemoglobin Sodium 147 H D Potassium 5.8 H D Chloride 108.8 H Carbon Dioxide 21 L BUN 68 H 68 H Creatinine 3.8 H 4.1 H Glucose 144 H 154 H POC Glucose 144 H Lactic Acid Calcium 6.5 L 5.8 L* Ionized Calcium Phosphorus Magnesium AST 215 H Alkaline Phosphatase Total Protein 4.7 L Albumin 1.5 L Triglycerides Arterial Blood Glucose Arterial Blood Ionized Calcium Urine WBC (Auto) Urine Creatinine Crossmatch 12/26/20 12/26/20 12/27/20 23:13 Unknown 00:25 WBC RBC Hgb 11.1 L Hct MCV MCHC RDW Plt Count Lymph % (Auto) Eos % (Auto) Lymph # (Auto) Eos # (Auto) Seg Neutrophils % Seg Neuts % (Manual) Lymphocytes % (Manual) Seg Neutrophils # Seg Neutrophils # Man Lymphocytes # (Manual) Monocytes # (Manual) PT INR APTT Fibrinogen ABG pH POC ABG pCO2 POC ABG pO2 ABG pO2 ABG Base Excess ABG Hemoglobin ABG Oxyhemoglobin ABG Sodium ABG Potassium ABG Chloride ABG Glucose Carboxyhemoglobin Sodium Potassium Chloride Carbon Dioxide BUN Creatinine Glucose POC Glucose 163 H Lactic Acid Calcium Ionized Calcium Phosphorus 5.60 H Magnesium AST Alkaline Phosphatase Total Protein Albumin Triglycerides Arterial Blood Glucose Arterial Blood Ionized Calcium Urine WBC (Auto) Urine Creatinine Crossmatch 12/27/20 12/27/20 12/27/20 02:57 04:15 04:15 WBC 28.5 H RBC Hgb 11.2 L Hct MCV MCHC 31 L RDW 16.5 H Plt Count 130 L Lymph % (Auto) Eos % (Auto) Lymph # (Auto) Eos # (Auto) Seg Neutrophils % Seg Neuts % (Manual) Lymphocytes % (Manual) Seg Neutrophils # Seg Neutrophils # Man Lymphocytes # (Manual) Monocytes # (Manual) PT INR APTT Fibrinogen ABG pH 7.238 L POC ABG pCO2 POC ABG pO2 139.1 H ABG pO2 ABG Base Excess ABG Hemoglobin 11.2 L ABG Oxyhemoglobin ABG Sodium 133.8 L ABG Potassium 5.2 H ABG Chloride ABG Glucose 182 H Carboxyhemoglobin Sodium 136 L Potassium 6.0 H Chloride Carbon Dioxide 18 L BUN 68 H Creatinine 4.1 H Glucose 166 H POC Glucose Lactic Acid Calcium 6.2 L Ionized Calcium Phosphorus 7.30 H D Magnesium AST Alkaline Phosphatase Total Protein Albumin Triglycerides 164 H Arterial Blood Glucose 182 H Arterial Blood Ionized Calcium 3.4 L Urine WBC (Auto) Urine Creatinine Crossmatch 12/27/20 12/27/20 12/27/20 04:50 10:51 11:17 WBC RBC Hgb Hct MCV MCHC RDW Plt Count Lymph % (Auto) Eos % (Auto) Lymph # (Auto) Eos # (Auto) Seg Neutrophils % Seg Neuts % (Manual) Lymphocytes % (Manual) Seg Neutrophils # Seg Neutrophils # Man Lymphocytes # (Manual) Monocytes # (Manual) PT INR APTT Fibrinogen ABG pH POC ABG pCO2 POC ABG pO2 ABG pO2 ABG Base Excess ABG Hemoglobin ABG Oxyhemoglobin ABG Sodium ABG Potassium ABG Chloride ABG Glucose Carboxyhemoglobin Sodium Potassium Chloride Carbon Dioxide BUN Creatinine Glucose POC Glucose 140 H 113 H 154 H Lactic Acid Calcium Ionized Calcium Phosphorus Magnesium AST Alkaline Phosphatase Total Protein Albumin Triglycerides Arterial Blood Glucose Arterial Blood Ionized Calcium Urine WBC (Auto) Urine Creatinine Crossmatch 12/27/20 12/27/20 12/27/20 12:40 14:40 23:17 WBC RBC Hgb Hct MCV MCHC RDW Plt Count Lymph % (Auto) Eos % (Auto) Lymph # (Auto) Eos # (Auto) Seg Neutrophils % Seg Neuts % (Manual) Lymphocytes % (Manual) Seg Neutrophils # Seg Neutrophils # Man Lymphocytes # (Manual) Monocytes # (Manual) PT INR APTT Fibrinogen ABG pH POC ABG pCO2 POC ABG pO2 ABG pO2 ABG Base Excess ABG Hemoglobin ABG Oxyhemoglobin ABG Sodium ABG Potassium ABG Chloride ABG Glucose Carboxyhemoglobin Sodium 135 L Potassium Chloride Carbon Dioxide 21 L BUN 62 H Creatinine 3.8 H Glucose 132 H POC Glucose 130 H Lactic Acid Calcium 5.6 L* Ionized Calcium 3.3 L Phosphorus Magnesium AST Alkaline Phosphatase Total Protein Albumin Triglycerides Arterial Blood Glucose Arterial Blood Ionized Calcium Urine WBC (Auto) Urine Creatinine Crossmatch 12/28/20 12/28/20 12/28/20 05:36 07:08 07:28 WBC 27.2 H RBC 3.50 L Hgb 9.6 L Hct 30.8 L MCV MCHC 31 L RDW 16.1 H Plt Count 111 L Lymph % (Auto) Eos % (Auto) Lymph # (Auto) Eos # (Auto) Seg Neutrophils % Seg Neuts % (Manual) 95.0 H Lymphocytes % (Manual) Seg Neutrophils # Seg Neutrophils # Man 25.8 H Lymphocytes # (Manual) 0.0 L Monocytes # (Manual) 1.1 H PT INR APTT Fibrinogen ABG pH 7.200 L POC ABG pCO2 POC ABG pO2 67.2 L ABG pO2 ABG Base Excess ABG Hemoglobin 10.3 L ABG Oxyhemoglobin 89.6 L ABG Sodium 127.8 L ABG Potassium 5.1 H ABG Chloride ABG Glucose 132 H Carboxyhemoglobin 0.4 L Sodium Potassium Chloride Carbon Dioxide BUN Creatinine Glucose POC Glucose 128 H Lactic Acid Calcium Ionized Calcium Phosphorus Magnesium AST Alkaline Phosphatase Total Protein Albumin Triglycerides Arterial Blood Glucose 132 H Arterial Blood Ionized Calcium 3.5 L Urine WBC (Auto) Urine Creatinine Crossmatch 12/28/20 12/28/20 12/28/20 07:28 11:37 13:25 WBC RBC Hgb Hct MCV MCHC RDW Plt Count Lymph % (Auto) Eos % (Auto) Lymph # (Auto) Eos # (Auto) Seg Neutrophils % Seg Neuts % (Manual) Lymphocytes % (Manual) Seg Neutrophils # Seg Neutrophils # Man Lymphocytes # (Manual) Monocytes # (Manual) PT INR APTT Fibrinogen ABG pH POC ABG pCO2 POC ABG pO2 ABG pO2 ABG Base Excess ABG Hemoglobin ABG Oxyhemoglobin ABG Sodium ABG Potassium ABG Chloride ABG Glucose Carboxyhemoglobin Sodium 131 L 133 L Potassium 5.9 H 5.1 H Chloride 97.1 L Carbon Dioxide 15 L 21 L BUN 70 H 77 H Creatinine 4.0 H 4.4 H Glucose 118 H 140 H POC Glucose 135 H Lactic Acid Calcium 6.3 L 6.3 L Ionized Calcium Phosphorus 7.10 H Magnesium AST 144 H Alkaline Phosphatase Total Protein 4.8 L Albumin 1.3 L Triglycerides Arterial Blood Glucose Arterial Blood Ionized Calcium Urine WBC (Auto) Urine Creatinine Crossmatch 12/28/20 12/28/20 12/29/20 16:38 23:28 03:08 WBC RBC Hgb Hct MCV MCHC RDW Plt Count Lymph % (Auto) Eos % (Auto) Lymph # (Auto) Eos # (Auto) Seg Neutrophils % Seg Neuts % (Manual) Lymphocytes % (Manual) Seg Neutrophils # Seg Neutrophils # Man Lymphocytes # (Manual) Monocytes # (Manual) PT INR APTT Fibrinogen ABG pH 7.301 L POC ABG pCO2 POC ABG pO2 151.1 H ABG pO2 ABG Base Excess ABG Hemoglobin 8.7 L ABG Oxyhemoglobin 98.2 H ABG Sodium 123.4 L ABG Potassium ABG Chloride 97.0 L ABG Glucose 144 H Carboxyhemoglobin Sodium Potassium Chloride Carbon Dioxide BUN Creatinine Glucose POC Glucose 140 H 134 H Lactic Acid Calcium Ionized Calcium Phosphorus Magnesium AST Alkaline Phosphatase Total Protein Albumin Triglycerides Arterial Blood Glucose 144 H Arterial Blood Ionized Calcium 3.4 L Urine WBC (Auto) Urine Creatinine Crossmatch 12/29/20 12/29/20 12/29/20 05:20 05:20 06:01 WBC 21.0 H RBC 2.89 L Hgb 8.1 L Hct 25.5 L MCV MCHC RDW 16.1 H Plt Count 124 L Lymph % (Auto) Eos % (Auto) Lymph # (Auto) Eos # (Auto) Seg Neutrophils % Seg Neuts % (Manual) Lymphocytes % (Manual) Seg Neutrophils # Seg Neutrophils # Man Lymphocytes # (Manual) Monocytes # (Manual) PT INR APTT Fibrinogen ABG pH POC ABG pCO2 POC ABG pO2 ABG pO2 ABG Base Excess ABG Hemoglobin ABG Oxyhemoglobin ABG Sodium ABG Potassium ABG Chloride ABG Glucose Carboxyhemoglobin Sodium 131 L Potassium Chloride 93.4 L Carbon Dioxide BUN 79 H Creatinine 4.7 H Glucose 122 H POC Glucose 108 H Lactic Acid Calcium 5.5 L* Ionized Calcium Phosphorus 5.70 H Magnesium 1.60 L AST Alkaline Phosphatase Total Protein Albumin Triglycerides Arterial Blood Glucose Arterial Blood Ionized Calcium Urine WBC (Auto) Urine Creatinine Crossmatch 12/29/20 12/29/20 12/29/20 10:04 11:27 17:31 WBC RBC Hgb Hct MCV MCHC RDW Plt Count Lymph % (Auto) Eos % (Auto) Lymph # (Auto) Eos # (Auto) Seg Neutrophils % Seg Neuts % (Manual) Lymphocytes % (Manual) Seg Neutrophils # Seg Neutrophils # Man Lymphocytes # (Manual) Monocytes # (Manual) PT INR APTT Fibrinogen ABG pH POC ABG pCO2 POC ABG pO2 ABG pO2 ABG Base Excess ABG Hemoglobin ABG Oxyhemoglobin ABG Sodium ABG Potassium ABG Chloride ABG Glucose Carboxyhemoglobin Sodium Potassium Chloride Carbon Dioxide BUN Creatinine Glucose POC Glucose 107 H 112 H 110 H Lactic Acid Calcium Ionized Calcium Phosphorus Magnesium AST Alkaline Phosphatase Total Protein Albumin Triglycerides Arterial Blood Glucose Arterial Blood Ionized Calcium Urine WBC (Auto) Urine Creatinine Crossmatch 12/30/20 12/30/20 12/30/20 03:31 08:06 17:39 WBC RBC Hgb Hct MCV MCHC RDW Plt Count Lymph % (Auto) Eos % (Auto) Lymph # (Auto) Eos # (Auto) Seg Neutrophils % Seg Neuts % (Manual) Lymphocytes % (Manual) Seg Neutrophils # Seg Neutrophils # Man Lymphocytes # (Manual) Monocytes # (Manual) PT INR APTT Fibrinogen ABG pH 7.261 L POC ABG pCO2 POC ABG pO2 123.1 H ABG pO2 ABG Base Excess ABG Hemoglobin 8.7 L ABG Oxyhemoglobin ABG Sodium 123.2 L ABG Potassium ABG Chloride 96.0 L ABG Glucose 112 H Carboxyhemoglobin Sodium 128 L Potassium Chloride 90.7 L Carbon Dioxide 21 L BUN 86 H Creatinine 4.9 H Glucose 107 H POC Glucose 134 H Lactic Acid Calcium 6.2 L Ionized Calcium Phosphorus 5.30 H Magnesium 1.50 L AST Alkaline Phosphatase Total Protein Albumin Triglycerides Arterial Blood Glucose 112 H Arterial Blood Ionized Calcium 3.2 L Urine WBC (Auto) Urine Creatinine Crossmatch 12/30/20 12/31/20 12/31/20 22:45 02:14 04:40 WBC RBC Hgb Hct MCV MCHC RDW Plt Count Lymph % (Auto) Eos % (Auto) Lymph # (Auto) Eos # (Auto) Seg Neutrophils % Seg Neuts % (Manual) Lymphocytes % (Manual) Seg Neutrophils # Seg Neutrophils # Man Lymphocytes # (Manual) Monocytes # (Manual) PT INR APTT Fibrinogen ABG pH 7.267 L POC ABG pCO2 POC ABG pO2 ABG pO2 ABG Base Excess ABG Hemoglobin 8.0 L ABG Oxyhemoglobin 93.7 L ABG Sodium ABG Potassium ABG Chloride 95.0 L ABG Glucose 108 H Carboxyhemoglobin 1.7 H Sodium 126 L Potassium Chloride 90.3 L Carbon Dioxide 20 L BUN 70 H Creatinine 4.3 H Glucose 209 H POC Glucose 109 H Lactic Acid Calcium 6.6 L Ionized Calcium Phosphorus 4.70 H Magnesium 1.60 L AST Alkaline Phosphatase Total Protein Albumin Triglycerides 157 H Arterial Blood Glucose 108 H Arterial Blood Ionized Calcium 3.7 L Urine WBC (Auto) Urine Creatinine Crossmatch 12/31/20 12/31/20 01/01/21 16:23 23:21 04:00 WBC 18.0 H RBC 2.75 L Hgb 7.7 L Hct 23.9 L MCV MCHC RDW 15.6 H Plt Count Lymph % (Auto) Eos % (Auto) Lymph # (Auto) Eos # (Auto) Seg Neutrophils % Seg Neuts % (Manual) 91.0 H Lymphocytes % (Manual) 6.0 L Seg Neutrophils # Seg Neutrophils # Man 16.4 H Lymphocytes # (Manual) 1.1 L Monocytes # (Manual) PT INR APTT Fibrinogen ABG pH 7.264 L POC ABG pCO2 POC ABG pO2 74.8 L ABG pO2 ABG Base Excess ABG Hemoglobin 7.1 L ABG Oxyhemoglobin 92.1 L ABG Sodium 124.9 L ABG Potassium ABG Chloride 95.0 L ABG Glucose 111 H Carboxyhemoglobin 1.7 H Sodium Potassium Chloride Carbon Dioxide BUN Creatinine Glucose POC Glucose 125 H Lactic Acid Calcium Ionized Calcium Phosphorus Magnesium AST Alkaline Phosphatase Total Protein Albumin Triglycerides Arterial Blood Glucose 111 H Arterial Blood Ionized Calcium 4.0 L Urine WBC (Auto) Urine Creatinine Crossmatch 01/01/21 01/01/21 01/01/21 05:50 13:41 15:55 WBC RBC Hgb Hct MCV MCHC RDW Plt Count Lymph % (Auto) Eos % (Auto) Lymph # (Auto) Eos # (Auto) Seg Neutrophils % Seg Neuts % (Manual) Lymphocytes % (Manual) Seg Neutrophils # Seg Neutrophils # Man Lymphocytes # (Manual) Monocytes # (Manual) PT INR APTT Fibrinogen ABG pH 7.148 L 7.207 L POC ABG pCO2 53.1 H POC ABG pO2 57.3 L 138.4 H ABG pO2 ABG Base Excess ABG Hemoglobin 9.0 L 8.3 L ABG Oxyhemoglobin 83.2 L ABG Sodium 126.2 L 124.5 L ABG Potassium ABG Chloride 95.0 L 95.0 L ABG Glucose 96 H 120 H Carboxyhemoglobin Sodium 131 L Potassium Chloride 93.3 L Carbon Dioxide 21 L BUN 67 H Creatinine 4.2 H Glucose POC Glucose Lactic Acid Calcium 7.1 L Ionized Calcium Phosphorus Magnesium AST 60 H Alkaline Phosphatase Total Protein 4.8 L Albumin 1.4 L Triglycerides Arterial Blood Glucose 96 H 120 H Arterial Blood Ionized Calcium 4.1 L 3.9 L Urine WBC (Auto) Urine Creatinine Crossmatch 01/01/21 01/01/21 01/02/21 17:09 23:24 03:47 WBC RBC Hgb Hct MCV MCHC RDW Plt Count Lymph % (Auto) Eos % (Auto) Lymph # (Auto) Eos # (Auto) Seg Neutrophils % Seg Neuts % (Manual) Lymphocytes % (Manual) Seg Neutrophils # Seg Neutrophils # Man Lymphocytes # (Manual) Monocytes # (Manual) PT INR APTT Fibrinogen ABG pH 7.276 L POC ABG pCO2 POC ABG pO2 173.6 H ABG pO2 ABG Base Excess ABG Hemoglobin 7 L ABG Oxyhemoglobin ABG Sodium 122.4 L ABG Potassium ABG Chloride 94.0 L ABG Glucose 118 H Carboxyhemoglobin Sodium Potassium Chloride Carbon Dioxide BUN Creatinine Glucose POC Glucose 124 H 119 H Lactic Acid Calcium Ionized Calcium Phosphorus Magnesium AST Alkaline Phosphatase Total Protein Albumin Triglycerides Arterial Blood Glucose 118 H Arterial Blood Ionized Calcium 4.0 L Urine WBC (Auto) Urine Creatinine Crossmatch 01/02/21 01/02/21 01/02/21 05:33 08:00 08:00 WBC 19.7 H RBC 2.53 L Hgb 7.1 L Hct 22.0 L MCV MCHC RDW 16.4 H Plt Count Lymph % (Auto) Eos % (Auto) Lymph # (Auto) Eos # (Auto) Seg Neutrophils % Seg Neuts % (Manual) Lymphocytes % (Manual) Seg Neutrophils # Seg Neutrophils # Man Lymphocytes # (Manual) Monocytes # (Manual) PT INR APTT Fibrinogen ABG pH POC ABG pCO2 POC ABG pO2 ABG pO2 ABG Base Excess ABG Hemoglobin ABG Oxyhemoglobin ABG Sodium ABG Potassium ABG Chloride ABG Glucose Carboxyhemoglobin Sodium 127 L Potassium Chloride 89.3 L Carbon Dioxide 19 L BUN 82 H Creatinine 5.0 H Glucose 103 H POC Glucose 107 H Lactic Acid Calcium 7.8 L Ionized Calcium Phosphorus 6.40 H Magnesium AST 47 H Alkaline Phosphatase Total Protein 5.0 L Albumin 1.6 L Triglycerides Arterial Blood Glucose Arterial Blood Ionized Calcium Urine WBC (Auto) Urine Creatinine Crossmatch 01/02/21 01/03/21 01/03/21 17:25 07:56 09:47 WBC 17.7 H RBC 2.19 L Hgb 6.2 L Hct 18.5 L* MCV MCHC RDW 16.1 H Plt Count Lymph % (Auto) Eos % (Auto) Lymph # (Auto) Eos # (Auto) Seg Neutrophils % Seg Neuts % (Manual) Lymphocytes % (Manual) Seg Neutrophils # Seg Neutrophils # Man Lymphocytes # (Manual) Monocytes # (Manual) PT INR APTT Fibrinogen ABG pH POC ABG pCO2 POC ABG pO2 ABG pO2 ABG Base Excess ABG Hemoglobin ABG Oxyhemoglobin ABG Sodium ABG Potassium ABG Chloride ABG Glucose Carboxyhemoglobin Sodium 130 L Potassium 3.5 L Chloride 90.3 L Carbon Dioxide BUN 68 H Creatinine 3.9 H Glucose 103 H POC Glucose 116 H Lactic Acid Calcium 8.0 L Ionized Calcium Phosphorus 4.80 H D Magnesium AST Alkaline Phosphatase Total Protein Albumin Triglycerides Arterial Blood Glucose Arterial Blood Ionized Calcium Urine WBC (Auto) Urine Creatinine Crossmatch 01/03/21 01/03/21 01/04/21 11:00 19:00 03:12 WBC 17.0 H RBC 2.51 L Hgb 7.1 L Hct 21.5 L MCV MCHC RDW 16.6 H Plt Count Lymph % (Auto) Eos % (Auto) Lymph # (Auto) Eos # (Auto) Seg Neutrophils % Seg Neuts % (Manual) Lymphocytes % (Manual) Seg Neutrophils # Seg Neutrophils # Man Lymphocytes # (Manual) Monocytes # (Manual) PT INR APTT Fibrinogen ABG pH 7.463 H POC ABG pCO2 POC ABG pO2 72.2 L ABG pO2 ABG Base Excess ABG Hemoglobin 6.2 L ABG Oxyhemoglobin 91.8 L ABG Sodium 128.4 L ABG Potassium 3.3 L ABG Chloride 96.0 L ABG Glucose 112 H Carboxyhemoglobin Sodium Potassium Chloride Carbon Dioxide BUN Creatinine Glucose POC Glucose Lactic Acid Calcium Ionized Calcium Phosphorus Magnesium AST Alkaline Phosphatase Total Protein Albumin Triglycerides Arterial Blood Glucose 112 H Arterial Blood Ionized Calcium 4.3 L Urine WBC (Auto) Urine Creatinine Crossmatch See Detail 01/04/21 01/04/21 01/04/21 05:16 06:20 06:20 WBC 18.5 H RBC 2.53 L Hgb 7.4 L Hct 21.9 L MCV MCHC RDW 15.8 H Plt Count Lymph % (Auto) Eos % (Auto) Lymph # (Auto) Eos # (Auto) Seg Neutrophils % Seg Neuts % (Manual) Lymphocytes % (Manual) Seg Neutrophils # Seg Neutrophils # Man Lymphocytes # (Manual) Monocytes # (Manual) PT INR APTT Fibrinogen ABG pH POC ABG pCO2 POC ABG pO2 ABG pO2 ABG Base Excess ABG Hemoglobin ABG Oxyhemoglobin ABG Sodium ABG Potassium ABG Chloride ABG Glucose Carboxyhemoglobin Sodium 135 L Potassium Chloride 95.2 L Carbon Dioxide BUN 56 H Creatinine 3.2 H Glucose 109 H POC Glucose 123 H Lactic Acid Calcium 7.6 L Ionized Calcium Phosphorus Magnesium AST Alkaline Phosphatase Total Protein Albumin Triglycerides Arterial Blood Glucose Arterial Blood Ionized Calcium Urine WBC (Auto) Urine Creatinine Crossmatch 01/05/21 01/05/21 01/05/21 03:50 07:22 07:22 WBC 23.8 H RBC 2.93 L Hgb 8.2 L Hct 25.1 L MCV MCHC RDW 16.5 H Plt Count Lymph % (Auto) Eos % (Auto) Lymph # (Auto) Eos # (Auto) Seg Neutrophils % Seg Neuts % (Manual) Lymphocytes % (Manual) Seg Neutrophils # Seg Neutrophils # Man Lymphocytes # (Manual) Monocytes # (Manual) PT INR APTT Fibrinogen ABG pH POC ABG pCO2 POC ABG pO2 ABG pO2 136.8 H ABG Base Excess -2.3 L ABG Hemoglobin 6.9 L ABG Oxyhemoglobin ABG Sodium ABG Potassium ABG Chloride ABG Glucose Carboxyhemoglobin Sodium 134 L Potassium Chloride 93.3 L Carbon Dioxide BUN 77 H Creatinine 4.2 H Glucose 105 H POC Glucose Lactic Acid Calcium Ionized Calcium Phosphorus 4.90 H D Magnesium AST Alkaline Phosphatase Total Protein Albumin Triglycerides Arterial Blood Glucose Arterial Blood Ionized Calcium Urine WBC (Auto) Urine Creatinine Crossmatch 01/05/21 01/05/21 01/05/21 11:02 14:06 15:37 WBC RBC Hgb Hct MCV MCHC RDW Plt Count Lymph % (Auto) Eos % (Auto) Lymph # (Auto) Eos # (Auto) Seg Neutrophils % Seg Neuts % (Manual) Lymphocytes % (Manual) Seg Neutrophils # Seg Neutrophils # Man Lymphocytes # (Manual) Monocytes # (Manual) PT INR APTT Fibrinogen ABG pH POC ABG pCO2 POC ABG pO2 332.3 H ABG pO2 ABG Base Excess ABG Hemoglobin 7.7 L ABG Oxyhemoglobin 98.7 H ABG Sodium 131.0 L ABG Potassium 3.3 L ABG Chloride 97.0 L ABG Glucose 118 H Carboxyhemoglobin Sodium Potassium Chloride Carbon Dioxide BUN Creatinine Glucose POC Glucose 118 H 111 H Lactic Acid Calcium Ionized Calcium Phosphorus Magnesium AST Alkaline Phosphatase Total Protein Albumin Triglycerides Arterial Blood Glucose 118 H Arterial Blood Ionized Calcium 4.4 L Urine WBC (Auto) Urine Creatinine Crossmatch 01/05/21 01/06/21 01/06/21 23:18 04:00 04:20 WBC RBC Hgb Hct MCV MCHC RDW Plt Count Lymph % (Auto) Eos % (Auto) Lymph # (Auto) Eos # (Auto) Seg Neutrophils % Seg Neuts % (Manual) Lymphocytes % (Manual) Seg Neutrophils # Seg Neutrophils # Man Lymphocytes # (Manual) Monocytes # (Manual) PT INR APTT Fibrinogen ABG pH POC ABG pCO2 POC ABG pO2 230.5 H ABG pO2 ABG Base Excess ABG Hemoglobin 7.9 L ABG Oxyhemoglobin 98.5 H ABG Sodium 129.4 L ABG Potassium ABG Chloride 97.0 L ABG Glucose 117 H Carboxyhemoglobin Sodium 133 L Potassium Chloride 94.4 L Carbon Dioxide BUN 62 H Creatinine 3.6 H Glucose 110 H POC Glucose 110 H Lactic Acid Calcium 7.8 L Ionized Calcium Phosphorus Magnesium AST Alkaline Phosphatase Total Protein Albumin Triglycerides Arterial Blood Glucose 117 H Arterial Blood Ionized Calcium 4.5 L Urine WBC (Auto) Urine Creatinine Crossmatch 01/06/21 01/06/21 01/06/21 05:28 09:00 11:00 WBC 15.2 H RBC 2.18 L Hgb 6.5 L Hct 21.8 L MCV 100 H MCHC 30 L RDW 18.5 H Plt Count Lymph % (Auto) Eos % (Auto) Lymph # (Auto) Eos # (Auto) Seg Neutrophils % Seg Neuts % (Manual) Lymphocytes % (Manual) Seg Neutrophils # Seg Neutrophils # Man Lymphocytes # (Manual) Monocytes # (Manual) PT INR APTT Fibrinogen ABG pH POC ABG pCO2 POC ABG pO2 ABG pO2 ABG Base Excess ABG Hemoglobin ABG Oxyhemoglobin ABG Sodium ABG Potassium ABG Chloride ABG Glucose Carboxyhemoglobin Sodium Potassium Chloride Carbon Dioxide BUN Creatinine Glucose POC Glucose 109 H Lactic Acid Calcium Ionized Calcium Phosphorus Magnesium AST Alkaline Phosphatase Total Protein Albumin Triglycerides Arterial Blood Glucose Arterial Blood Ionized Calcium Urine WBC (Auto) Urine Creatinine Crossmatch See Detail 01/06/21 01/06/21 01/07/21 11:32 23:44 03:10 WBC 15.3 H RBC 2.30 L Hgb 6.7 L Hct 20.1 L MCV MCHC RDW 16.6 H Plt Count Lymph % (Auto) Eos % (Auto) Lymph # (Auto) Eos # (Auto) Seg Neutrophils % Seg Neuts % (Manual) Lymphocytes % (Manual) Seg Neutrophils # Seg Neutrophils # Man Lymphocytes # (Manual) Monocytes # (Manual) PT INR APTT Fibrinogen ABG pH POC ABG pCO2 POC ABG pO2 ABG pO2 ABG Base Excess ABG Hemoglobin ABG Oxyhemoglobin ABG Sodium ABG Potassium ABG Chloride ABG Glucose Carboxyhemoglobin Sodium Potassium Chloride Carbon Dioxide BUN Creatinine Glucose POC Glucose 113 H 118 H Lactic Acid Calcium Ionized Calcium Phosphorus Magnesium AST Alkaline Phosphatase Total Protein Albumin Triglycerides Arterial Blood Glucose Arterial Blood Ionized Calcium Urine WBC (Auto) Urine Creatinine Crossmatch 01/07/21 01/07/21 01/07/21 03:10 04:17 05:06 WBC RBC Hgb Hct MCV MCHC RDW Plt Count Lymph % (Auto) Eos % (Auto) Lymph # (Auto) Eos # (Auto) Seg Neutrophils % Seg Neuts % (Manual) Lymphocytes % (Manual) Seg Neutrophils # Seg Neutrophils # Man Lymphocytes # (Manual) Monocytes # (Manual) PT INR APTT Fibrinogen ABG pH 7.272 L POC ABG pCO2 50.1 H POC ABG pO2 ABG pO2 ABG Base Excess ABG Hemoglobin 8.4 L ABG Oxyhemoglobin ABG Sodium 128.6 L ABG Potassium ABG Chloride 95.0 L ABG Glucose 109 H Carboxyhemoglobin Sodium 133 L Potassium Chloride 93.6 L Carbon Dioxide BUN 85 H Creatinine 3.9 H Glucose 112 H POC Glucose 106 H Lactic Acid Calcium Ionized Calcium Phosphorus 4.70 H D Magnesium AST Alkaline Phosphatase Total Protein Albumin Triglycerides Arterial Blood Glucose 109 H Arterial Blood Ionized Calcium Urine WBC (Auto) Urine Creatinine Crossmatch 01/07/21 01/07/21 01/07/21 14:05 16:00 23:25 WBC RBC Hgb 8.1 L Hct 24.2 L MCV MCHC RDW Plt Count Lymph % (Auto) Eos % (Auto) Lymph # (Auto) Eos # (Auto) Seg Neutrophils % Seg Neuts % (Manual) Lymphocytes % (Manual) Seg Neutrophils # Seg Neutrophils # Man Lymphocytes # (Manual) Monocytes # (Manual) PT INR APTT Fibrinogen ABG pH POC ABG pCO2 POC ABG pO2 ABG pO2 ABG Base Excess ABG Hemoglobin 7.2 L ABG Oxyhemoglobin ABG Sodium 127.3 L ABG Potassium ABG Chloride 96.0 L ABG Glucose 98 H Carboxyhemoglobin Sodium Potassium Chloride Carbon Dioxide BUN Creatinine Glucose POC Glucose 106 H Lactic Acid Calcium Ionized Calcium Phosphorus Magnesium AST Alkaline Phosphatase Total Protein Albumin Triglycerides Arterial Blood Glucose 98 H Arterial Blood Ionized Calcium Urine WBC (Auto) Urine Creatinine Crossmatch 01/08/21 01/08/21 01/08/21 03:22 05:30 23:22 WBC RBC Hgb Hct MCV MCHC RDW Plt Count Lymph % (Auto) Eos % (Auto) Lymph # (Auto) Eos # (Auto) Seg Neutrophils % Seg Neuts % (Manual) Lymphocytes % (Manual) Seg Neutrophils # Seg Neutrophils # Man Lymphocytes # (Manual) Monocytes # (Manual) PT INR APTT Fibrinogen ABG pH POC ABG pCO2 POC ABG pO2 71.3 L ABG pO2 ABG Base Excess ABG Hemoglobin 8.7 L ABG Oxyhemoglobin 92.2 L ABG Sodium 125.9 L ABG Potassium ABG Chloride 96.0 L ABG Glucose 124 H Carboxyhemoglobin Sodium Potassium Chloride Carbon Dioxide BUN Creatinine Glucose POC Glucose 118 H 110 H Lactic Acid Calcium Ionized Calcium Phosphorus Magnesium AST Alkaline Phosphatase Total Protein Albumin Triglycerides Arterial Blood Glucose 124 H Arterial Blood Ionized Calcium Urine WBC (Auto) Urine Creatinine Crossmatch 01/08/21 01/08/21 01/09/21 Unknown Unknown 08:45 WBC 15.2 H RBC 2.62 L Hgb 7.6 L Hct 22.7 L MCV MCHC RDW 16.7 H Plt Count Lymph % (Auto) Eos % (Auto) Lymph # (Auto) Eos # (Auto) Seg Neutrophils % Seg Neuts % (Manual) 95.0 H Lymphocytes % (Manual) 3.0 L Seg Neutrophils # Seg Neutrophils # Man 14.4 H Lymphocytes # (Manual) 0.5 L Monocytes # (Manual) PT INR APTT Fibrinogen ABG pH POC ABG pCO2 POC ABG pO2 ABG pO2 ABG Base Excess ABG Hemoglobin ABG Oxyhemoglobin ABG Sodium ABG Potassium ABG Chloride ABG Glucose Carboxyhemoglobin Sodium 129 L 129 L Potassium Chloride 91.2 L 92.7 L Carbon Dioxide 21 L 19 L BUN 91 H 105 H Creatinine 4.0 H 4.4 H Glucose 115 H 107 H POC Glucose Lactic Acid Calcium Ionized Calcium Phosphorus 5.00 H Magnesium AST Alkaline Phosphatase Total Protein 5.3 L Albumin 1.6 L Triglycerides 166 H Arterial Blood Glucose Arterial Blood Ionized Calcium Urine WBC (Auto) Urine Creatinine Crossmatch 01/09/21 01/09/21 01/10/21 10:10 23:51 04:00 WBC 14.1 H RBC 2.50 L Hgb 7.2 L Hct 21.6 L MCV MCHC RDW 16.5 H Plt Count Lymph % (Auto) Eos % (Auto) Lymph # (Auto) Eos # (Auto) Seg Neutrophils % Seg Neuts % (Manual) 92.0 H Lymphocytes % (Manual) 2.0 L Seg Neutrophils # Seg Neutrophils # Man 13.0 H Lymphocytes # (Manual) 0.3 L Monocytes # (Manual) PT INR APTT Fibrinogen ABG pH 7.273 L POC ABG pCO2 POC ABG pO2 ABG pO2 ABG Base Excess ABG Hemoglobin 8.7 L ABG Oxyhemoglobin ABG Sodium 126.2 L ABG Potassium 4.8 H ABG Chloride 96.0 L ABG Glucose 160 H Carboxyhemoglobin Sodium Potassium Chloride Carbon Dioxide BUN Creatinine Glucose POC Glucose 154 H Lactic Acid Calcium Ionized Calcium Phosphorus Magnesium AST Alkaline Phosphatase Total Protein Albumin Triglycerides Arterial Blood Glucose 160 H Arterial Blood Ionized Calcium Urine WBC (Auto) Urine Creatinine Crossmatch 01/10/21 01/10/21 01/10/21 04:01 04:01 04:01 WBC 12.6 H RBC 2.89 L Hgb 8.1 L Hct 24.9 L MCV MCHC RDW 16.6 H Plt Count Lymph % (Auto) Eos % (Auto) Lymph # (Auto) Eos # (Auto) Seg Neutrophils % Seg Neuts % (Manual) 95.0 H Lymphocytes % (Manual) 3.0 L Seg Neutrophils # Seg Neutrophils # Man 12.0 H Lymphocytes # (Manual) 0.4 L Monocytes # (Manual) PT 15.4 H INR 1.17 H APTT 40.2 H Fibrinogen 817 H ABG pH POC ABG pCO2 POC ABG pO2 ABG pO2 ABG Base Excess ABG Hemoglobin ABG Oxyhemoglobin ABG Sodium ABG Potassium ABG Chloride ABG Glucose Carboxyhemoglobin Sodium 128 L Potassium Chloride 90.4 L Carbon Dioxide 19 L BUN 113 H Creatinine 4.5 H Glucose 162 H POC Glucose Lactic Acid Calcium Ionized Calcium Phosphorus 5.70 H Magnesium AST Alkaline Phosphatase Total Protein 6.2 L Albumin 2.1 L Triglycerides Arterial Blood Glucose Arterial Blood Ionized Calcium Urine WBC (Auto) Urine Creatinine Crossmatch 01/10/21 01/10/21 01/11/21 05:31 11:45 04:00 WBC RBC Hgb Hct MCV MCHC RDW Plt Count Lymph % (Auto) Eos % (Auto) Lymph # (Auto) Eos # (Auto) Seg Neutrophils % Seg Neuts % (Manual) Lymphocytes % (Manual) Seg Neutrophils # Seg Neutrophils # Man Lymphocytes # (Manual) Monocytes # (Manual) PT INR APTT Fibrinogen ABG pH 7.311 L POC ABG pCO2 49.2 H POC ABG pO2 ABG pO2 ABG Base Excess ABG Hemoglobin 9.4 L ABG Oxyhemoglobin ABG Sodium 130.3 L ABG Potassium ABG Chloride 96.0 L ABG Glucose 104 H Carboxyhemoglobin Sodium Potassium Chloride Carbon Dioxide BUN Creatinine Glucose POC Glucose 150 H 145 H Lactic Acid Calcium Ionized Calcium Phosphorus Magnesium AST Alkaline Phosphatase Total Protein Albumin Triglycerides Arterial Blood Glucose 104 H Arterial Blood Ionized Calcium Urine WBC (Auto) Urine Creatinine Crossmatch 01/11/21 01/11/21 01/12/21 04:45 17:29 05:51 WBC RBC Hgb Hct MCV MCHC RDW Plt Count Lymph % (Auto) Eos % (Auto) Lymph # (Auto) Eos # (Auto) Seg Neutrophils % Seg Neuts % (Manual) Lymphocytes % (Manual) Seg Neutrophils # Seg Neutrophils # Man Lymphocytes # (Manual) Monocytes # (Manual) PT INR APTT Fibrinogen ABG pH POC ABG pCO2 POC ABG pO2 ABG pO2 ABG Base Excess ABG Hemoglobin ABG Oxyhemoglobin ABG Sodium ABG Potassium ABG Chloride ABG Glucose Carboxyhemoglobin Sodium 134 L Potassium 3.5 L D Chloride 95.5 L Carbon Dioxide BUN 88 H Creatinine 3.5 H Glucose 103 H POC Glucose 109 H 114 H Lactic Acid Calcium Ionized Calcium Phosphorus Magnesium AST Alkaline Phosphatase Total Protein Albumin Triglycerides Arterial Blood Glucose Arterial Blood Ionized Calcium Urine WBC (Auto) Urine Creatinine Crossmatch 01/12/21 01/12/21 01/12/21 10:00 10:00 11:56 WBC RBC Hgb Hct MCV MCHC RDW Plt Count Lymph % (Auto) Eos % (Auto) Lymph # (Auto) Eos # (Auto) Seg Neutrophils % Seg Neuts % (Manual) Lymphocytes % (Manual) Seg Neutrophils # Seg Neutrophils # Man Lymphocytes # (Manual) Monocytes # (Manual) PT INR APTT Fibrinogen ABG pH POC ABG pCO2 POC ABG pO2 ABG pO2 ABG Base Excess ABG Hemoglobin ABG Oxyhemoglobin ABG Sodium ABG Potassium ABG Chloride ABG Glucose Carboxyhemoglobin Sodium 136 L Potassium Chloride 95.2 L Carbon Dioxide BUN 102 H Creatinine 3.6 H Glucose 106 H POC Glucose 113 H Lactic Acid Calcium Ionized Calcium Phosphorus 4.90 H Magnesium AST Alkaline Phosphatase Total Protein Albumin Triglycerides 153 H Arterial Blood Glucose Arterial Blood Ionized Calcium Urine WBC (Auto) Urine Creatinine Crossmatch 01/12/21 01/12/21 01/13/21 17:43 23:31 03:14 WBC RBC Hgb Hct MCV MCHC RDW Plt Count Lymph % (Auto) Eos % (Auto) Lymph # (Auto) Eos # (Auto) Seg Neutrophils % Seg Neuts % (Manual) Lymphocytes % (Manual) Seg Neutrophils # Seg Neutrophils # Man Lymphocytes # (Manual) Monocytes # (Manual) PT INR APTT Fibrinogen ABG pH 7.484 H POC ABG pCO2 POC ABG pO2 ABG pO2 ABG Base Excess ABG Hemoglobin 8.4 L ABG Oxyhemoglobin ABG Sodium 134.4 L ABG Potassium 3.1 L ABG Chloride ABG Glucose 117 H Carboxyhemoglobin Sodium Potassium Chloride Carbon Dioxide BUN Creatinine Glucose POC Glucose 113 H 108 H Lactic Acid Calcium Ionized Calcium Phosphorus Magnesium AST Alkaline Phosphatase Total Protein Albumin Triglycerides Arterial Blood Glucose 117 H Arterial Blood Ionized Calcium 4.5 L Urine WBC (Auto) Urine Creatinine Crossmatch 01/13/21 01/13/21 01/13/21 04:56 05:00 05:00 WBC RBC 2.87 L Hgb 8.0 L Hct 24.4 L MCV MCHC RDW 17.2 H Plt Count Lymph % (Auto) Eos % (Auto) Lymph # (Auto) Eos # (Auto) Seg Neutrophils % Seg Neuts % (Manual) Lymphocytes % (Manual) Seg Neutrophils # Seg Neutrophils # Man Lymphocytes # (Manual) Monocytes # (Manual) PT INR APTT Fibrinogen ABG pH POC ABG pCO2 POC ABG pO2 ABG pO2 ABG Base Excess ABG Hemoglobin ABG Oxyhemoglobin ABG Sodium ABG Potassium ABG Chloride ABG Glucose Carboxyhemoglobin Sodium Potassium 3.0 L Chloride 97.6 L Carbon Dioxide BUN 69 H Creatinine 2.9 H Glucose 114 H POC Glucose 110 H Lactic Acid Calcium 8.0 L Ionized Calcium Phosphorus Magnesium AST Alkaline Phosphatase Total Protein Albumin Triglycerides Arterial Blood Glucose Arterial Blood Ionized Calcium Urine WBC (Auto) Urine Creatinine Crossmatch 01/13/21 01/14/21 01/14/21 12:09 05:00 05:00 WBC 12.4 H RBC 2.72 L Hgb 7.7 L Hct 23.3 L MCV MCHC RDW 17.3 H Plt Count Lymph % (Auto) 6.5 L Eos % (Auto) 7.7 H Lymph # (Auto) 0.8 L Eos # (Auto) 1.0 H Seg Neutrophils % 82.7 H Seg Neuts % (Manual) Lymphocytes % (Manual) Seg Neutrophils # 10.2 H Seg Neutrophils # Man Lymphocytes # (Manual) Monocytes # (Manual) PT INR APTT Fibrinogen ABG pH POC ABG pCO2 POC ABG pO2 ABG pO2 ABG Base Excess ABG Hemoglobin ABG Oxyhemoglobin ABG Sodium ABG Potassium ABG Chloride ABG Glucose Carboxyhemoglobin Sodium Potassium 3.2 L Chloride Carbon Dioxide BUN 79 H Creatinine 3.1 H Glucose POC Glucose 111 H Lactic Acid Calcium Ionized Calcium Phosphorus Magnesium AST Alkaline Phosphatase Total Protein Albumin Triglycerides Arterial Blood Glucose Arterial Blood Ionized Calcium Urine WBC (Auto) Urine Creatinine Crossmatch 01/16/21 01/16/21 01/16/21 04:30 04:30 16:00 WBC RBC 2.62 L Hgb 7.6 L Hct 22.6 L MCV MCHC RDW 17.3 H Plt Count Lymph % (Auto) Eos % (Auto) Lymph # (Auto) Eos # (Auto) Seg Neutrophils % Seg Neuts % (Manual) Lymphocytes % (Manual) Seg Neutrophils # Seg Neutrophils # Man Lymphocytes # (Manual) Monocytes # (Manual) PT INR APTT Fibrinogen ABG pH POC ABG pCO2 POC ABG pO2 ABG pO2 ABG Base Excess ABG Hemoglobin ABG Oxyhemoglobin ABG Sodium ABG Potassium ABG Chloride ABG Glucose Carboxyhemoglobin Sodium 146 H Potassium 2.9 L* 3.0 L Chloride Carbon Dioxide BUN 58 H Creatinine 2.4 H Glucose 101 H POC Glucose Lactic Acid Calcium Ionized Calcium Phosphorus Magnesium AST Alkaline Phosphatase Total Protein Albumin 2.1 L Triglycerides Arterial Blood Glucose Arterial Blood Ionized Calcium Urine WBC (Auto) Urine Creatinine Crossmatch 01/16/21 01/17/21 01/17/21 Unknown 04:30 04:30 WBC RBC 2.80 L Hgb 7.9 L Hct 24.1 L MCV MCHC RDW 17.1 H Plt Count Lymph % (Auto) Eos % (Auto) Lymph # (Auto) Eos # (Auto) Seg Neutrophils % Seg Neuts % (Manual) Lymphocytes % (Manual) Seg Neutrophils # Seg Neutrophils # Man Lymphocytes # (Manual) Monocytes # (Manual) PT INR APTT Fibrinogen ABG pH POC ABG pCO2 POC ABG pO2 ABG pO2 ABG Base Excess ABG Hemoglobin ABG Oxyhemoglobin ABG Sodium ABG Potassium ABG Chloride ABG Glucose Carboxyhemoglobin Sodium 151 H Potassium 2.8 L* Chloride 108.0 H Carbon Dioxide BUN 58 H Creatinine 2.2 H Glucose 103 H POC Glucose Lactic Acid Calcium 8.0 L Ionized Calcium Phosphorus Magnesium 1.40 L AST Alkaline Phosphatase Total Protein Albumin Triglycerides 216 H Arterial Blood Glucose Arterial Blood Ionized Calcium Urine WBC (Auto) > 182.0 H Urine Creatinine Crossmatch
[2021-01-17] MEDS ORDERED: SODIUM CHLORIDE 0.45% 1000 ML 1,000 ML with POTASSIUM CHLORIDE 20 MEQ IV SCH (10:00)
[2021-01-17] MEDS: FENTANYL 50 MCG/HR TD SCH (10:41)
[2021-01-17] MEDS: FAMOTIDINE 20 MG TAB PO SCH ×2 (10:41→22:29)
[2021-01-17] MEDS ORDERED: MAGNESIUM SULFATE 4 GM/100 ML BAG IV ONE (11:00)
[2021-01-17] MEDS: NACL 0.45%/KCL 20 MEQ 20 MEQ/1,000 ML BAG IV SCH ×2 (11:05→22:53)
--- NOTE | 2021-01-17 12:02 | Progress Note ---
Assessment and Plan Cultures: 12/20/2020 blood culture: No growth 12/20/2020 urine culture: Usual skin giorgio 12/20/2020 tracheal aspirate culture: Mucor 01/16/2021 blood culture: GNR A/P: 60-year-old male with obesity, hypertension, tobacco abuse, coronary artery disease, admitted to the hospital on 12/20/2020 with: #Fever, new sepsis secondary to GNR bacteremia: Source could be urine, given significant pyuria. #Initial septic shock: Resolved. Secondary to intra-abdominal source, peritonitis. Patient with necrotic bowel secondary to incarcerated ventral hernia. Status post exploratory laparotomy, extensive adhesiolysis, small bowel resection and peritoneal lavage along with ABThera VAC placement on 12/20/2020, replacement 12/29/2020. Off pressors. Last surgery abdomen closure with mesh 01/02/2021. Repeat CT 01/09/21 with large organized but bland appearing reactive fluid collection in anterior abdomen - seroma v/s hematoma. #JONI: Renally dose antibiotics. Was requiring hemodialysis, nephrology following. #Morbid obesity #Mucor in tracheal aspirate is likely colonization. No treatment needed currently. Recs: -Follow-up blood cultures, urine cultures -continue IV Cefepime, renally dosed -vancomycin and fluconazole discontinued -source of bacteremia could be CAUTI v/s line. Consider removal Lissette Rizzo MD, FACP [facility] ([facility]) O: [phone] F: [phone] Subjective Date of service: 01/17/21 Principal diagnosis: SBO and necrosis of large part of small intestine Interval history: Low-grade fever present. Remains on the vent, awake. Discussed with RN. Objective - Exam Narrative Exam: Physical Exam: Constitutional: sedated, intubated, on the vent Head, Ears, Nose: Normocephalic, atraumatic. External ears, nose normal Eyes: Conjunctivae/corneas clear. No icterus. No ptosis. Neck: intubated Oral: intubated Cardiovascular: S1, S2 + Respiratory: AE fair bilaterally and equal GI: midline dressing + bowel sounds + drains + Musculoskeletal: scrotal edema Skin: No rash or abscess Hem/Lymphatic: No palpable cervical or supraclavicular nodes. No lymphangitis Psych: no agitation Neurological: sedated, intubated, on the vent, exam limited - Constitutional Vitals: Vital Signs Temp Pulse Resp BP Pulse Ox 99.9 F H 82 29 H 128/65 98 01/17/21 07:56 01/17/21 08:27 01/17/21 10:44 01/17/21 08:27 01/17/21 08:27 Temperature -Last 24 Hours Temperature 99.9 F Temperature 99.4 F Temperature 100.8 F Temperature 100.9 F Temperature 99 F - Labs CBC & Chem 7: 01/17/21 04:30 01/17/21 04:30 Labs: Abnormal lab results 01/16/21 01/16/21 01/17/21 Range/Units 16:00 Unknown 04:30 RBC 2.80 L (3.65-5.03) M/mm3 Hgb 7.9 L (11.8-15.2) gm/dl Hct 24.1 L (35.5-45.6) % RDW 17.1 H (13.2-15.2) % Sodium (137-145) mmol/L Potassium 3.0 L (3.6-5.0) mmol/L Chloride (98-107) mmol/L BUN (9-20) mg/dL Creatinine (0.8-1.3) mg/dL Glucose (75-100) mg/dL POC Glucose (70-105) mg/dL Calcium (8.4-10.2) mg/dL Magnesium (1.7-2.3) mg/dL Triglycerides (2-149) mg/dL Urine WBC (Auto) > 182.0 H (0.0-6.0) /HPF 01/17/21 01/17/21 Range/Units 04:30 11:24 RBC (3.65-5.03) M/mm3 Hgb (11.8-15.2) gm/dl Hct (35.5-45.6) % RDW (13.2-15.2) % Sodium 151 H (137-145) mmol/L Potassium 2.8 L* (3.6-5.0) mmol/L Chloride 108.0 H (98-107) mmol/L BUN 58 H (9-20) mg/dL Creatinine 2.2 H (0.8-1.3) mg/dL Glucose 103 H (75-100) mg/dL POC Glucose 110 H (70-105) mg/dL Calcium 8.0 L (8.4-10.2) mg/dL Magnesium 1.40 L (1.7-2.3) mg/dL Triglycerides 216 H (2-149) mg/dL Urine WBC (Auto) (0.0-6.0) /HPF
[2021-01-17] MEDS: INSULIN REGULAR, HUMAN 100 UNITS/1 ML SUB-Q SCH ×3 (13:18→23:44)
[2021-01-17] MEDS: FREE WATER PO SCH ×3 (13:19→22:29)
[2021-01-17] MEDS: HYDROmorphone 1 MG/1 ML INJ IV PRN (15:00)
--- NOTE | 2021-01-17 15:52 | Progress Note ---
<MARGE LOVELL - Last Filed: 01/17/21 15:55> Assessment and Plan Assessment and plan: This is a 60-year-old male with obesity, hypertension, nicotine dependence, PVD s/p stent placement on dual antiplatelet therapy, hyperlipidemia, OA, GERD, ventral hernia and small bowel obstruction who was admitted with small bowel obstruction and peritonitis Septic Shock, POA (presented with leukocytosis, tachycardia, tachypnea,febrile and evidence of peritonitis) -Disease consulted, appreciate recommendations -Antibiotic therapy per ID -12/20 tracheal aspirate with mucus species which does not to be treated per ID -12/20 blood cultures x2 with no growth, urine culture with usual skin giorgio -01/16 blood cultures x2 with gram-negative jose enrique, abdominal wound culture with 2 species of gram-negative rods -COVID-19 PUI, ruled out Small bowel obstruction with peritonitis, Ventral hernia s/p repair -Surgery consulted, appreciate recommendations -12/20 CT abdomen/pelvis showed high-grade small bowel obstruction related to severe complex ventral abdominal wall hernias, progressed in appearance from prior exam from 09/12/2020 without evidence of pneumonitis or pneumoperitoneum, patchy bibasilar airspace disease concern for atypical infectious process/pneumonitis -12/20 s/p ex lap, extensive lysis of adhesions, small bowel resection (removal of 70 cm necrotic small bowel segment), peritoneal lavage and ABThera abdominal wound VAC placement -12/23 s/p abdominal exploration, small bowel resection, peritoneal lavage, ABThera wound VAC placement -12/26 s/p ex lap, small bowel resection, peritoneal lavage, ABThera wound VAC placement -12/29 s/p ex lap, small bowel resection, small bowel anastomosis and ABThera wound VAC placement -01/01 s/p myocutaneous flap creation, abdominal wall component separation and placement of phasix mesh with surgery yesterday where his abdomen was closed and 2 LAURA drains were placed on either side of his midline between fascia and subcu tissue. -12/30 initiated on HD by nephro -01/09 CT abdomen/pelvis with contrast shows large organized virtually bland appearing fluid collection along the anterior abdomen measuring up to 29 cm in the craniocaudal dimension and 2.6 cm in transverse dimension which may reflect postoperative seroma or hematoma, no associated gas to suggest superimposed infection, no contrast is seen within the collection to suggest bowel perforation -01/09 CT chest with contrast shows CHF with small left and trace right pleural effusions and diffuse groundglass opacities in airspace consolidation consistent with pulmonary edema (superimposed multifocal pneumonia is not excluded), diffuse anasarca likely related to third spacing of fluid. Leukocytosis -abx per ID -Trend CBC Anemia -S/p 4 units PRBC during stay -Transfuse for hemoglobin less than 7 -01/09 stool occult positive -Trend CBC Postoperative pain -IV analgesics -Sedated with propofol and Precedex Midline abdominal incision -Ulceration to midline abdominal incision with purulent drainage -01/17 wound culture sent with primary growth of gram-negative rods -WOCN consulted, appreciate recommendations -Wound care per nursing Protein calorie malnutrition -S/p TPN -Tube feedings -Accu-Cheks every , SSI -Dietary supplementation per nutrition Acute Kidney Injury, on HD now -12/23 fracture excretion of sodium calculated at 0.16 secondary prerenal state -Nephrology consulted, appreciate recommendations -HD per nephrology -Strict intake and output -Daily weights -Trend BMP Hypernatremia -Hypotonic IV fluid with potassium per nephrology -Trend sodium Hyperchloremia -Trend chloride Hypokalemia -Trend potassium -Replete as necessary Hypomagnesemia -Replete as necessary -Trend magnesium Obesity -Increasing physical activity and decreasing caloric intake counseling when appropriate Hypertension -Adjust antihypertensive regimen as tolerated -S/p vasopressor support Nicotine dependence -Smoking cessation counseling when appropriate CAD s/p stent placement GERD -PPI GI/DVT prophylaxis: PPI, SCDs to bilateral lower extremities while in bed, heparin subcu Disposition: ICU Lines: PICC placed 01/05, Lawrence catheter The high probability of a clinically significant, sudden or life threatening deterioration of the [multi] system(s) required my full and direct attention, intervention and personal management. The aggregate critical care time was [35] minutes. This time is in addition to time spent performing reported procedures but includes the following: [x] Data Review and interpretation [x] Patient assessment and monitoring of vital signs [x] Documentation [x] Medication orders and management History Interval history: This is a 60-year-old male with obesity, hypertension, nicotine dependence, PVD s/p stent placement on dual antiplatelet therapy, hyperlipidemia, OA, GERD, ventral hernia with SBO who presents to the emergency department on 12/20 with severe, diffuse, worsened with movement, slightly relieved with rest abdominal pain rated at 10/10 with decreased oral intake, nausea and multiple episodes of vomiting. Patient underwent a CT of his abdomen/pelvis and was found to have evidence of small bowel obstruction as well as clinical findings consistent with acute peritonitis. Patient was admitted to the hospital service with acute peritonitis and incarcerated ventral hernia with consults to [facility] [place] and surgery. 12/21: Patient is status post ex lap, extensive lysis of adhesions, small bowel resection, peritoneal lavage and ABThera abdominal wound VAC placement by Dr. Tena and Dr. Brumfield on 12/20 with removal of a 70 cm segment of necrotic small bowel. Patient was intubated and sedated on propofol 4 at the time of my examination on Assist-control, rate of 24, PEEP of 6, tidal volume of 550 and FiO2 35%. Patient needed to be deeply sedated and there was a became hypotensive. Patient was started on patient for support with Levophed and received bolus of IVF. 12/22: Patient was febrile to 103 and vancomycin and Diflucan were added by [facility] [place] and infectious disease was consulted and they increased Zosyn and stop vanco mycin. Patient was given additional 1 L bolus today for CVP goal of 10-12. At the time of examination patient was on Levophed, propofol and fentanyl CMV tidal volume 500, rate of 24, PEEP of 6 and FiO2 65%. Plan for OR tomorrow 12/23: Patient Cr/BUN noted to be increased and nephrology was consulted. ID decreased the zosyn dose d/r renal function. Urine studies ordered. Ivy placed today. LR boluses per [facility] [place], TPN to be started. Fractional excretion of sodium calculated at 0.16 indicating prerenal state 12/24: Patient is status post abdominal exploration, small bowel resection of 4 to 5 cm segment of dusky small bowel, peritoneal lavage and ABThera wound VAC placement on 12/23 with surgery, leukocytosis and renal function is improving, worsening hypernatremia and hyperchloremia. Patient will be started on TPN today. We will place on SSI/Accu-Cheks every every 6 hours. Patient noted to b e nearly maxed on Levophed and vasopressin was ordered. Remains sedated and on MV 12/25: Leukocytosis continues to improve, given Ca Gluconate today, Hypernatremia, Cr and hyperchorlemia slightly worsened today. Patient is sedated with propofol and fentanyl on CMV TV 500, Rate 24, Peep 6, FiO2 50%. He remains on levophed. Possible OR Saturday. 12/26 Patient presented with small bowel obstruction, is status post ex lap, extensive lysis of adhesions, small bowel resection, peritoneal lavage and ABThera abdominal wound VAC placement by Dr. Tena and Dr. Brumfield on 12/20 with removal of a 70 cm segment of necrotic small bowel. Was taken back to OR on 12/23 s/p Abdominal exploration, Small bowel resection, Peritoneal lavage, ABThera wound VAC placement. he is still having fever. Poss going to OR again today. Sepsis managed by ID. He is on Diflucan, Zosyn. He is on Levophed. 6/ s/p ex lap, extensive lysis of adhesions, small bowel resection (removal of 70 cm necrotic small bowel segment), peritoneal lavage and ABThera abdominal wound VAC placement. Still having fever Still on vent 12/28: Patient is orally intubated with AC mode ventilation rate 24, tidal volume 500, FiO2 75% and PEEP of 6. POD#8 s/p ex lap and small bowel resection for necrotic bowel secondary to incarcerated ventral hernia left with open abdomen. POD#5 s/p abdominal exploration with segmental small bowel resection. abthera placement POD#2 s/p abdominal exploration, small bowel resection for ischemia, abthera placement -CCM, surgery, infectious disease, nephrology consulted, appreciate mary jane mmendations -IV abx per ID: Zosyn, fluconazole -NGT to LIWS -NPO for now, TPN -SSI, Accucheck q6 -Vasopressor support with levophed -On mechanical ventilation, wean as tolerated, VAP bundle -Sedated with propofol and analgesia with fentanyl drip -Trend CBC, BMP, Mg, Phos -GI/DVT prophylaxis: PPI, SCDs to bilateral lower extremities while in bed, avoid chemical anticoagulation to cleared by surgery 12/29: Patient underwent abdominal exploration, small bowel resection, small bowel anastomosis and ABThera wound VAC placement this a.m. Patient remains on AC mode ventilation with a rate of 24, tidal volume 500, FiO2 65% and PEEP of 6. Continue antibiotics per ID recommendations. Continue vasopressor support as needed. Continue TPN for nutritional support. 6/11: Patient currently with AC mode ventilation rate of 24, tidal volume 500, FiO2 60% and PEEP of 6. Patient underwent further surgery yesterday with another abdominal exploration, small bowel resection, small bowel anastomosis a nd replacement of the ABThera wound VAC. Patient continues to require vasopressor support with vasopressin and Levophed. Continue TPN for nutrition. Continue propofol and fentanyl for sedation. Continue Zosyn per ID recommendations. INITIATED ON HD PER NEPHRO 12: Patient currently with AC mode ventilation rate of 24, tidal volume 500, FiO2 50% and PEEP of 6. POD#12 s/p ex lap and small bowel resection for necrotic bowel secondary to incarcerated ventral hernia left with open abdomen. POD#9 s/p abdominal exploration with segmental small bowel resection. abthera placement POD#3 s/p abdominal exploration, small bowel resection for ischemia, abthera placement POD#2 s/p abdominal exploration with small bowel anastamosis and abthera vac placement Continue hemodialysis per nephrology recommendations. Surgery plans for abdominal washout and bowel examination on Saturday. If anastamosis looks viable and no other issues, surgery plans to close his abdomen. 01/01: Continue current ventilator settings per pulmonary monitor ABG. Continue antibiotics per ID recommendations. Surgery plans for abdominal washout and bowel examination. If anastamosis looks viable and no other issues, surgery plans to close his abdomen. Wean pressors to maintain MAP > 65. Continue TPN for nutritional support. Hemodialysis per nephrology recommendations. Prognosis remains guarded. 01/02: At the time my examination patient was only on vasopressin for vasopressor support, sedated on 30 mcg of propofol and 4 mcg of fentanyl. Patient was on CMV tidal volume 500, rate of 12, PEEP of 10 and 50% FiO2. Patient remains on TPN and with NG tube to low intermittent suction. Patient underwent a myocutaneous flap creation, abdominal wall component separation and placement of phasix mesh with surgery yesterday where his abdomen was closed and 2 LAURA drains were placed on either side of his midline between fascia and subcu tissue. Per infectious his antibiotics will continue until 5 days postop from a final surgery. Patient has increasing leukocytosis which are likely reactive to surgery and patient will have hemodialysis today for clearance and volume removal. Patient sedation and mechanical ventilation will be weaned for extubation. 01/03: Patient H/H is 6.2/18.5 and he is being transfused 2 units PRBC with hemodialysis today. Patient has slight hypokalemia but TPN has been adjusted to address potassium. Patient continues to have hyponatremia, hypochloremia and hyperphosphatemia closely improved. The time my examination patient sedated on fentanyl and propofol and LAURA drainage noted to be more serosanguineous. Patient was on assist control with TV 500, PEEP of 8, rate of 28 and FiO2 40%. Patient remains off vasopressor support. No acute overnight events reported 01/04: Patient sedated on propofol and fentanyl. RN reported bowel movement overnight. Precedex drip started. NG tube clamped and may start trickle tube feedings later if patient does not have high residuals. CCM continues to wean ventilation as tolerated. On my exam patient is on CMV tidal volume 500 rate of 28, PEEP of 8 and 40% FiO2. Patient is having periods of agitation and FiO2 had to be increased for hypoxia. Mucor species in tracheal aspirate but ID believes this is colonization. 01/05: Patient is severely agitated and received multiple IV push fentanyl. Patient was ultimately started on propofol. He received hemodialysis today. Patient had approximately 400 mL of NG output overnight. NG tube continues to be on suction. Leukocytosis worsened today. 01/06: Patient is agitated despite fentanyl pushes and Dilaudid was ordered, patient noted to be anemic with a hemoglobin of 6.5 and will be transfused 1 unit PRBC today. Nephrology does not plan to dialyze him today and to keep him on Saturday, , Saturday schedule. No acute events reported overnight. Patient NG tube residuals continue to decrease and surgery has cleared for trickle tube feeds which has been communicated to dietitian. 01/07: This this morning H/H resulted at 6.7/20.1 after 1 unit PRBC 6.7/21.8. Patient's ABG today shows respiratory acidosis and vent settings have been changed by [facility] [place]. Patient should receive hemodialysis today as he is on Saturday schedule. Overnight RN reported 700 mL of NG tube output over 12 hours. We will hold off on trickle feeds and continue TPN. At the time of my examination patient was sedated on propofol, fentanyl, Precedex and on CMV tidal volume 550, rate of 10, PEEP of 8 and 35% FiO2. We will order coags and stool guaiac to further investigate anemia. -01/09 stool pos for guiac; CT Chest/abd/pelvis -01/10: Patient this morning with elevated BP, likely secondary to pain vs ?Hx of Htn, Hydralazine PRN ordered and added to the patient, will monitor. Continue pain control. Wound care management and vent weaning when ok with surgery and Accounts Receivable Specialist 01/12: Continue supportive care including pain control. Monitor for bowel movement. Continue off antibiotics per ID monitor. Asphalt Paving Machine Operator following for HD. 01/13/21 patient is seen and examined. Patient is still on vent. Wean to extubate as per critical care. Patient is off antibiotic as per infectious disease. Status post dialysis catheter placed in the right IJ. HD as per nephrology. Continue current management. Recheck CBC BMP in the morning. 01/14/21 patient seen and examined. Patient is still on vent. Patient is agitated. We will try to wean the sedation. We will start metoprolol 5 mg p.o. every 8 hours as needed for blood pressure. Patient is off antibiotic as per infectious disease. Continue hemodialysis as per nephrology. Continue current management. Critical care follow-up. Prognosis is guarded. Recheck CBC BMP in the morning 01/15: Remains with guarded prognosis, no clear evidence of renal recovery, still on the vent. Monitor H/H and repeat CT A/P if downward trend. Replace K. 01/16: Patient is hypokalemic today at 2.9, patient's urinalysis reveals UTI and patient is already on cefepime, vancomycin and fluconazole per ID. Patient's urine output noted to be 4351-3297 mL over the past couple days. Nephrology requested to hold off removal of Lawrence catheter as the patient seems to be in the diuretic phase of ATN and will withhold dialysis for now and evaluate. At the time my examination patient is sedated on propofol and Precedex on CMV tidal line 500, rate of 24, PEEP of 6 and 30% FiO2. Patient was febrile last night with a T-max of 102.7. Patient was cultured overnight. Wound care consult for abd wound with purulent drainage, culture sent. 01/17: Patient is again hypokalemic and hypomagnesemic which was repleted with K- Phos and KCl overnight. Patient has hypernatremia. Nephrology has started the patient on hypotonic IVF with potassium. Right IJ Vas-Cath ordered to be removed. Patient's abdominal culture and blood cultures from 01/16 are growing gram-negative rods. The time my examination patient was on propofol and dexamethasone on assist control. T-max 102.7. Hospitalist Physical - Constitutional Vitals: Temp Pulse Resp BP Pulse Ox 100 F H 82 29 H 139/76 100 01/17/21 12:00 01/17/21 12:41 01/17/21 15:00 01/17/21 12:41 01/17/21 12:41 General appearance: Present: well-nourished, obese, other (sedated) - EENT Eyes: Present: PERRL, EOM intact ENT: poor dentition - Neck Neck: Present: normal ROM - Respiratory Respiratory effort: normal Respiratory: bilateral: diminished - Cardiovascular Rhythm: regular Heart Sounds: Present: S1 & S2. Absent: systolic murmur, diastolic murmur - Extremities Extremities: no ischemia, pulses intact, pulses symmetrical, normal temperature, normal color Extremity abnormal: edema Peripheral Pulses: within normal limits - Abdominal General gastrointestinal: soft, non-tender, non-distended, normal bowel sounds - Integumentary Integumentary: Present: warm, dry (MLA with dressing) - Psychiatric Psychiatric: cooperative - Neurologic Neurologic: CNII-XII intact, moves all extremities, other (CAM ICU negative) - Allied Health Allied health notes reviewed: nursing, RT, social work HEART Score - HEART Score EKG: Normal Age: < 45 Risk factors: No known risk factors Troponin: Troponin T < 0.010 ng/mL (0.00-0.029) 12/20/20 13:58 Troponin: < normal limit - Critical Actions Critical Actions: 0-3 pts:0.9-1.7%risk of adverse cardiac event.Candidate for discharge Results - Labs CBC & Chem 7: 01/17/21 04:30 01/17/21 04:30 Labs: Laboratory Last Values WBC 10.3 K/mm3 (4.5-11.0) 01/17/21 04:30 RBC 2.80 M/mm3 (3.65-5.03) L 01/17/21 04:30 Hgb 7.9 gm/dl (11.8-15.2) L 01/17/21 04:30 Hct 24.1 % (35.5-45.6) L 01/17/21 04:30 MCV 86 fl (84-94) 01/17/21 04:30 MCH 28 pg (28-32) 01/17/21 04:30 MCHC 33 % (32-34) 01/17/21 04:30 RDW 17.1 % (13.2-15.2) H 01/17/21 04:30 Plt Count 298 K/mm3 (140-440) 01/17/21 04:30 Lymph % (Auto) 6.5 % (13.4-35.0) L 01/14/21 05:00 [place] % (Auto) 2.5 % (0.0-7.3) 01/14/21 05:00 Eos % (Auto) 7.7 % (0.0-4.3) H 01/14/21 05:00 Baso % (Auto) 0.6 % (0.0-1.8) 01/14/21 05:00 Lymph # (Auto) 0.8 K/mm3 (1.2-5.4) L 01/14/21 05:00 [place] # (Auto) 0.3 K/mm3 (0.0-0.8) 01/14/21 05:00 Eos # (Auto) 1.0 K/mm3 (0.0-0.4) H 01/14/21 05:00 Baso # (Auto) 0.1 K/mm3 (0.0-0.1) 01/14/21 05:00 Add Manual Diff Complete 01/10/21 04:01 Total Counted 100 01/10/21 04:01 Seg Neutrophils % 82.7 % (40.0-70.0) H 01/14/21 05:00 Seg Neuts % (Manual) 95.0 % (40.0-70.0) H 01/10/21 04:01 Band Neutrophils % 2.0 % 01/10/21 04:01 Lymphocytes % (Manual) 3.0 % (13.4-35.0) L 01/10/21 04:01 Monocytes % (Manual) 1.0 % (0.0-7.3) 01/09/21 10:10 Metamyelocytes % 1.0 % 01/09/21 10:10 Myelocytes % 1.0 % 01/09/21 10:10 Nucleated RBC % Not Reportable 01/10/21 04:01 Seg Neutrophils # 10.2 K/mm3 (1.8-7.7) H 01/14/21 05:00 Seg Neutrophils # Man 12.0 K/mm3 (1.8-7.7) H 01/10/21 04:01 Band Neutrophils # 0.3 K/mm3 01/10/21 04:01 Lymphocytes # (Manual) 0.4 K/mm3 (1.2-5.4) L 01/10/21 04:01 Abs React Lymphs (Man) 0.0 K/mm3 01/10/21 04:01 Monocytes # (Manual) 0.0 K/mm3 (0.0-0.8) 01/10/21 04:01 Eosinophils # (Manual) 0.0 K/mm3 (0.0-0.4) 01/10/21 04:01 Basophils # (Manual) 0.0 K/mm3 (0.0-0.1) 01/10/21 04:01 Metamyelocytes # 0.0 K/mm3 01/10/21 04:01 Myelocytes # 0.0 K/mm3 01/10/21 04:01 Promyelocytes # 0.0 K/mm3 01/10/21 04:01 Blast Cells # 0.0 K/mm3 01/10/21 04:01 WBC Morphology Not Reportable 01/10/21 04:01 Hypersegmented Neuts Not Reportable 01/10/21 04:01 Hyposegmented Neuts Not Reportable 01/10/21 04:01 Hypogranular Neuts Not Reportable 01/10/21 04:01 Smudge Cells Not Reportable 01/10/21 04:01 Toxic Granulation Not Reportable 01/10/21 04:01 Toxic Vacuolation Not Reportable 01/10/21 04:01 Dohle Bodies Not Reportable 01/10/21 04:01 Pelger-Huet Anomaly Not Reportable 01/10/21 04:01 Mirian Rods Not Reportable 01/10/21 04:01 Platelet Estimate Consistent w auto 01/10/21 04:01 Clumped Platelets Not Reportable 01/10/21 04:01 Plt Clumps, EDTA Not Reportable 01/10/21 04:01 Large Platelets Not Reportable 01/10/21 04:01 Giant Platelets Not Reportable 01/10/21 04:01 Platelet Satelliting Not Reportable 01/10/21 04:01 Plt Morphology Comment Not Reportable 01/10/21 04:01 RBC Morphology Not Reportable 01/10/21 04:01 Dimorphic RBCs Not Reportable 01/10/21 04:01 Polychromasia Not Reportable 01/10/21 04:01 Hypochromasia Few 01/10/21 04:01 Poikilocytosis Not Reportable 01/10/21 04:01 Anisocytosis Few 01/10/21 04:01 Microcytosis Few 01/10/21 04:01 Macrocytosis Not Reportable 01/10/21 04:01 Spherocytes Not Reportable 01/10/21 04:01 Pappenheimer Bodies Not Reportable 01/10/21 04:01 Sickle Cells Not Reportable 01/10/21 04:01 Target Cells Not Reportable 01/10/21 04:01 Tear Drop Cells Not Reportable 01/10/21 04:01 Ovalocytes Not Reportable 01/10/21 04:01 Helmet Cells Not Reportable 01/10/21 04:01 [place] Bodies Not Reportable 01/10/21 04:01 [place] Rings Not Reportable 01/10/21 04:01 Jonathan Cells Not Reportable 01/10/21 04:01 Bite Cells Not Reportable 01/10/21 04:01 Crenated Cell Not Reportable 01/10/21 04:01 Elliptocytes Not Reportable 01/10/21 04:01 Acanthocytes (Spur) Not Reportable 01/10/21 04:01 Rouleaux Not Reportable 01/10/21 04:01 Hemoglobin C Crystals Not Reportable 01/10/21 04:01 Schistocytes Not Reportable 01/10/21 04:01 Malaria parasites Not Reportable 01/10/21 04:01 Dylon Bodies Not Reportable 01/10/21 04:01 Hem Pathologist Commnt No 01/10/21 04:01 PT 15.4 Sec. (12.2-14.9) H 01/10/21 04:01 INR 1.17 (0.87-1.13) H 01/10/21 04:01 APTT 40.2 Sec. (24.2-36.6) H 01/10/21 04:01 Fibrinogen 817 mg/dl (211-480) H 01/10/21 04:01 ABG pH 7.484 (7.320-7.450) H 01/13/21 03:14 POC ABG pCO2 34.8 mmHg (32.0-48.0) 01/13/21 03:14 ABG pCO2 37.9 mm Hg 01/05/21 03:50 POC ABG pO2 104.0 mmHg (83-108) 01/13/21 03:14 ABG pO2 136.8 mm Hg (80.0-90.0) H 01/05/21 03:50 POC ABG HCO3 25.6 01/13/21 03:14 ABG HCO3 22.4 mmol/L (20.0-26.0) 01/05/21 03:50 ABG O2 Saturation 98.3 (0-100) 01/13/21 03:14 ABG O2 Content 9.8 (0.0-44) 01/05/21 03:50 POC ABG Base Excess 2.1 01/13/21 03:14 ABG Base Excess -2.3 mmol/L (-2.0-3.0) L 01/05/21 03:50 ABG Hemoglobin 8.4 (12.0-17.5) L 01/13/21 03:14 ABG Oxyhemoglobin 97.0 (94-98) 01/13/21 03:14 ABG Carboxyhemoglobin 1.5 % (0.0-5.0) 01/05/21 03:50 ABG Methemoglobin 0.3 (0.0-1.5) 01/13/21 03:14 ABG Sodium 134.4 mmol/L (136.0-145.0) L 01/13/21 03:14 ABG Potassium 3.1 mmol/L (3.40-4.50) L 01/13/21 03:14 ABG Chloride 99.0 mmol/L (98-107) 01/13/21 03:14 ABG Glucose 117 mg/dL (65-95) H 01/13/21 03:14 Oxyhemoglobin 96.7 % (95.0-99.0) 01/05/21 03:50 Carboxyhemoglobin 1.0 (0.5-1.5) 01/13/21 03:14 FiO2 50 % 01/05/21 03:50 FiO2 % 35.0 01/13/21 03:14 Sodium 151 mmol/L (137-145) H 01/17/21 04:30 Potassium 2.8 mmol/L (3.6-5.0) L* 01/17/21 04:30 Chloride 108.0 mmol/L (98-107) H 01/17/21 04:30 Carbon Dioxide 28 mmol/L (22-30) 01/17/21 04:30 Anion Gap 18 mmol/L 01/17/21 04:30 BUN 58 mg/dL (9-20) H 01/17/21 04:30 Creatinine 2.2 mg/dL (0.8-1.3) H 01/17/21 04:30 Estimated GFR 31 ml/min 01/17/21 04:30 BUN/Creatinine Ratio 26 % 01/17/21 04:30 Glucose 103 mg/dL (75-100) H 01/17/21 04:30 POC Glucose 110 mg/dL (70-105) H 01/17/21 11:24 Lactic Acid 1.70 mmol/L (0.7-2.0) 12/20/20 16:20 Calcium 8.0 mg/dL (8.4-10.2) L 01/17/21 04:30 Ionized Calcium 3.3 mg/dL (4.8-5.6) L 12/27/20 14:40 Phosphorus 4.40 mg/dL (2.5-4.5) 01/17/21 04:30 Magnesium 1.40 mg/dL (1.7-2.3) L 01/17/21 04:30 Total Bilirubin 0.50 mg/dL (0.1-1.2) 01/16/21 04:30 AST 19 units/L (5-40) 01/16/21 04:30 ALT 18 units/L (7-56) 01/16/21 04:30 Alkaline Phosphatase 118 units/L (35-129) 01/16/21 04:30 Troponin T < 0.010 ng/mL (0.00-0.029) 12/20/20 13:58 Total Protein 6.4 g/dL (6.3-8.2) 01/16/21 04:30 Albumin 2.1 g/dL (3.9-5) L 01/16/21 04:30 Albumin/Globulin Ratio 0.5 % 01/16/21 04:30 Triglycerides 216 mg/dL (2-149) H 01/17/21 04:30 Arterial Blood Glucose 117 mg/dL (65-95) H 01/13/21 03:14 Arterial Blood Ionized Calcium 4.5 mg/dL (4.6-5.3) L 01/13/21 03:14 Urine Color Yellow (Yellow) 01/16/21 Unknown Urine Turbidity Turbid (Clear) 01/16/21 Unknown Urine pH 6.0 (5.0-7.0) 01/16/21 Unknown Ur Specific [place] 1.010 (1.003-1.030) 01/16/21 Unknown Urine Protein 100 mg/dl mg/dL (Negative) 01/16/21 Unknown Urine Glucose (UA) Neg mg/dL (Negative) 01/16/21 Unknown Urine Ketones Neg mg/dL (Negative) 01/16/21 Unknown Urine Blood Mod (Negative) 01/16/21 Unknown Urine Nitrite Neg (Negative) 01/16/21 Unknown Urine Bilirubin Neg (Negative) 01/16/21 Unknown Urine Urobilinogen < 2.0 mg/dL (<2.0) 01/16/21 Unknown Ur Leukocyte Esterase Lg (Negative) 01/16/21 Unknown Urine WBC (Auto) > 182.0 /HPF (0.0-6.0) H 01/16/21 Unknown Urine RBC (Auto) 154.0 /HPF (0.0-6.0) 01/16/21 Unknown U Epithel Cells (Auto) < 1.0 /HPF (0-13.0) 12/20/20 Unknown Urine Bacteria (Auto) 4+ /HPF (Negative) 01/16/21 Unknown Urine WBC Clumps 3+ /HPF 01/16/21 Unknown Ur Renal Epithelial Cell 8 /LPF 01/16/21 Unknown Triple Phos Crystals 2+ 12/23/20 12:15 Hyaline Casts 11 /LPF 01/16/21 Unknown Urine Mucus Few /HPF 01/16/21 Unknown Urine Eosinophils None seen (None Seen) 12/23/20 12:15 Urine Creatinine 78.1 mg/dL (0.1-20.0) H 12/23/20 12:15 Urine Sodium 13 mmol/L 12/23/20 12:15 Fraction Sodium Excret 0.2 12/23/20 12:15 Random Vancomycin 5.8 ug/mL (0-40.0) 01/17/21 04:30 Coronavirus (PCR) Negative (Negative) 12/21/20 Unknown Hepatitis A IgM Ab Non-reactive (NonReactive) 12/30/20 14:40 Hep Bs Antigen Non-reactive (Negative) 12/30/20 14:40 Hep B Core IgM Ab Non-reactive (NonReactive) 12/30/20 14:40 Hepatitis C Antibody Non-reactive (NonReactive) 12/30/20 14:40 Blood Type A NEGATIVE 01/06/21 11:00 Antibody Screen Negative 01/06/21 11:00 Crossmatch See Detail 01/06/21 11:00 Microbiology: Microbiology 01/16/21 15:24 Abdomen Wound Culture - Preliminary Gram Negative Jose Enrique Gram Negative Jose Enrique#2 01/16/21 04:50 Peripheral/Venous Blood Culture - Preliminary Gram Negative Jose Enrique 01/16/21 04:40 Peripheral/Venous Blood Culture - Preliminary Gram Negative Jose Enrique Lawrence/IV: Voiding Method Indwelling Catheter Active Medications - Current Medications Current Medications: Generic Name Dose Route Start Last Admin Trade Name Freq PRN Reason Stop Dose Admin Acetaminophen 650 mg 01/16/21 03:57 01/16/21 19:49 Acetaminophen 325 Mg/10.15 Ml Oral Liqd Unit Dose FEEDTUBE 650 mg Q6H PRN Administration Non Cardiac Pain or Temp>100.5 Lipase/Protease/Amylase 1 each 01/07/21 08:44 Lipase 10,500/Protease 25,000/Amylase 43,750 (Units) Dr Maharaj FEEDTUBE PRN PRN For Clogged Feeding Tube Bisacodyl 10 mg 12/30/20 11:00 01/17/21 10:49 Bisacodyl [address] 10 mg QDAY ASCENCION Administration Dextrose 50 ml 12/24/20 10:49 Dextrose 50% In Water (25gm) 50 Ml Syringe IV Q30MIN PRN Hypoglycemia Protocol Famotidine 20 mg 01/17/21 10:00 01/17/21 10:41 Famotidine 20 Mg Tab PO 20 mg BID ASCENCION Administration Fentanyl 1 applic 01/11/21 14:00 01/17/21 10:41 Fentanyl 50 Mcg/Hr Patch 72hr TD 1 applic Q3D ASCENCION Administration Heparin Sodium (Porcine) 5,000 unit 01/06/21 14:00 01/17/21 13:21 Heparin 5,000 Unit/1 Ml Vial SUB-Q 5,000 unit Q8HR ASCENCION Administration Hydromorphone HCl 1 mg 01/11/21 14:00 01/17/21 13:19 Hydromorphone 1 Mg/1 Ml Inj IV 1 mg Q4HR ASCENCION Administration Hydromorphone HCl 0.5 mg 01/12/21 10:10 01/17/21 15:00 Hydromorphone 1 Mg/1 Ml Inj IV 0.5 mg Q4H PRN Administration Pain , Severe (7-10) Hydromorphone HCl 0.25 mg 01/12/21 10:11 01/15/21 15:40 Hydromorphone 1 Mg/1 Ml Inj IV 0.25 mg Q4H PRN Administration Pain, Moderate (4-6) Hydrophilic Ointment 1 applic 12/20/20 21:58 Lip Therapy Vaseline TP Q2HR PRN Dry Lips Propofol 1,000 mg in 100 mls @ 3.606 mls/hr 12/20/20 22:00 01/17/21 08:54 Diprivan 10 Mg/Ml IV 15 mcg/kg/min TITR ASCENCION 10.818 mls/hr Administration Protocol 5 MCG/KG/MIN Sodium Chloride 100 mls @ 999 mls/hr 01/10/21 09:08 Nacl 0.9% IV MARILU PRN Hypotension Nicardipine HCl 50 mg/ Sodium 250 mls @ 25 mls/hr 01/11/21 09:00 01/15/21 04:32 Chloride IV 0 mg/hr TITR ASCENCION 0 mls/hr Titration Protocol 5 MG/HR Dexmedetomidine HCl 1,000 mcg/ 260 mls @ 7.322 mls/hr 01/15/21 01:00 01/17/21 11:04 Sodium Chloride IV 1.2 mcg/kg/hr TITRATE ASCENCION 43.93 mls/hr Administration Protocol 0.2 MCG/KG/HR Cefepime HCl 1 gm in 100 mls @ 200 mls/hr 01/16/21 12:00 01/17/21 13:18 Cefepime/Ns 1 Gm/100 Ml IV 200 mls/hr Q12H ASCENCION Administration Protocol Potassium Chloride/Sodium Chloride 20 meq in 1,000 mls @ 100 mls/hr 01/17/21 10:00 01/17/21 11:05 Ns 0.45/Kcl 20meq IV 100 mls/hr DIRECT ASCENCION Administration Insulin Human Regular 0 units 12/28/20 00:00 01/17/21 13:18 Insulin Regular, Human 100 Units/1 Ml SUB-Q Not Given Q6H ASCENCION Protocol Metoprolol Tartrate 5 mg 01/14/21 13:37 01/15/21 12:42 Metoprolol Tartrate 5 Mg/5 Ml Inj IV 5 mg Q6H PRN Administration SBP >/=160 Multi-Ingred Cream/Lotion/Oil/Oint 1 applic 12/20/20 21:58 01/03/21 01:13 Mineral Oil/Petrolatum, White Ophth Oint 3.5 Gm OU 1 applic Q4HR PRN Administration Dry Eye(s) Ondansetron HCl 4 mg 01/11/21 08:09 Ondansetron 4 Mg/2 Ml Inj IV Q8H PRN Nausea And Vomiting Simple Syrup 15 ml 01/07/21 08:44 Simple Syrup 15 Ml FEEDTUBE PRN PRN Hypoglycemia Simple Syrup 30 ml 01/07/21 08:44 Simple Syrup 15 Ml FEEDTUBE PRN PRN Hypoglycemia Sodium Bicarbonate 325 mg 01/07/21 08:44 Sodium Bicarbonate 325 Mg Tab FEEDTUBE PRN PRN For Clogged Feeding Tube Sodium Chloride 10 ml 12/20/20 22:00 01/17/21 10:49 Sodium Chloride 0.9% 10 Ml Flush Syringe IV 10 ml BID ASCENCION Administration Sodium Chloride 10 ml 12/20/20 16:42 01/17/21 06:01 Sodium Chloride 0.9% 10 Ml Flush Syringe IV 10 ml PRN PRN Administration LINE FLUSH Nutrition/Malnutrition Assess - Dietary Evaluation Nutrition/Malnutrition Findings: Nutrition Notes Start: 12/21/20 09:06 Freq: Status: Active Protocol: Document 01/16/21 11:07 PIETRO (Rec: 01/16/21 11:10 PIETRO [id number]) Nutrition Notes Initial or Follow up Reassessment Current Diagnosis Acute Kidney Injury,Coronary Artery Disease,Sepsis, Hypertension,Small Bowel Obstruction,Hyperlipidemia Other Pertinent Diagnosis gangrenous small bowel, s/p small bowel ressection, peritonitis Current Diet Nepro 1.8 at 40 ml/hr Labs/Tests Na 146 K 2.9 BUN 58 Cr 2.4 Pertinent Medications Propofol at 10.818 ml/hr (285 kcal) Height 6 ft Weight 120.7 kg [place] Body Weight (kg) 80.90 BMI 36.1 Weight change and time frame weight change noted. Weight Status Obese Subjective/Other Information FU for TF tolerance. Observed Nepro 1.8 running at goal rate . RN state pt is tolerating. Percent of energy/protein needs met: 100%/57% Burn Absent Trauma Absent Current % PO Negligible Minimum of two criteria No #2 Nutrition Diagnosis Increased nutrient needs ( specify in comment below) Diagnosis Progress(for reassessment Continues documentation) #1 Nutrition Diagnosis Inadequate oral intake Diagnosis Progress(for reassessment Continues documentation) Is patient on ventilator? Yes Is Patient Ambulatory and/or Out of Bed No REE-(Emanuel-St. Jeor-confined to bed) 2476.212 Kcal/Kg value to use for calculation 14 Approximate Energy Requirements Using 1690 kcal/Kg Calculation Used for Recommendations Kcal/kg Additional Notes Pro needs >1.2g/kg adjBW: > 127g/day Fluid needs per MD. Nutrition Intervention Nutrition Support: Nepro 40 ml/hr is reached. Flush 175 ml q4h or per MD. Kcal 1,728 Protein (gm) 72 Fluid (mL) 779 Goal #1 TF tolerance Goal #2 Meet at least 75% of kcal and protein needs via TF Follow-Up By: 01/18/21 Additional Comments F/U for TF tolerance <AVTAR MAYO - Last Filed: 01/18/21 13:35> Assessment and Plan Assessment and plan: I agree with assessment and plan as outlined above. I personally examined the patient. Patient continues to have fevers, continue antibiotics, prognosis is guarded at this time. Hospitalist Physical - Constitutional Vitals: Temp Pulse Resp BP Pulse Ox 102.1 F H 94 H 22 153/75 100 01/18/21 11:52 01/18/21 10:00 01/18/21 10:00 01/18/21 12:20 01/18/21 12:20 HEART Score - HEART Score Troponin: Troponin T < 0.010 ng/mL (0.00-0.029) 12/20/20 13:58 Results - Labs CBC & Chem 7: 01/18/21 10:37 01/18/21 04:15 Labs: Laboratory Last Values WBC 9.3 K/mm3 (4.5-11.0) 01/18/21 10:37 RBC 2.64 M/mm3 (3.65-5.03) L 01/18/21 10:37 Hgb 7.8 gm/dl (11.8-15.2) L 01/18/21 10:37 Hct 22.7 % (35.5-45.6) L 01/18/21 10:37 MCV 86 fl (84-94) 01/18/21 10:37 MCH 30 pg (28-32) 01/18/21 10:37 MCHC 34 % (32-34) 01/18/21 10:37 RDW 16.8 % (13.2-15.2) H 01/18/21 10:37 Plt Count 341 K/mm3 (140-440) 01/18/21 10:37 Lymph % (Auto) 6.5 % (13.4-35.0) L 01/14/21 05:00 [place] % (Auto) 2.5 % (0.0-7.3) 01/14/21 05:00 Eos % (Auto) 7.7 % (0.0-4.3) H 01/14/21 05:00 Baso % (Auto) 0.6 % (0.0-1.8) 01/14/21 05:00 Lymph # (Auto) 0.8 K/mm3 (1.2-5.4) L 01/14/21 05:00 [place] # (Auto) 0.3 K/mm3 (0.0-0.8) 01/14/21 05:00 Eos # (Auto) 1.0 K/mm3 (0.0-0.4) H 01/14/21 05:00 Baso # (Auto) 0.1 K/mm3 (0.0-0.1) 01/14/21 05:00 Add Manual Diff Complete 01/10/21 04:01 Total Counted 100 01/10/21 04:01 Seg Neutrophils % 82.7 % (40.0-70.0) H 01/14/21 05:00 Seg Neuts % (Manual) 95.0 % (40.0-70.0) H 01/10/21 04:01 Band Neutrophils % 2.0 % 01/10/21 04:01 Lymphocytes % (Manual) 3.0 % (13.4-35.0) L 01/10/21 04:01 Monocytes % (Manual) 1.0 % (0.0-7.3) 01/09/21 10:10 Metamyelocytes % 1.0 % 01/09/21 10:10 Myelocytes % 1.0 % 01/09/21 10:10 Nucleated RBC % Not Reportable 01/10/21 04:01 Seg Neutrophils # 10.2 K/mm3 (1.8-7.7) H 01/14/21 05:00 Seg Neutrophils # Man 12.0 K/mm3 (1.8-7.7) H 01/10/21 04:01 Band Neutrophils # 0.3 K/mm3 01/10/21 04:01 Lymphocytes # (Manual) 0.4 K/mm3 (1.2-5.4) L 01/10/21 04:01 Abs React Lymphs (Man) 0.0 K/mm3 01/10/21 04:01 Monocytes # (Manual) 0.0 K/mm3 (0.0-0.8) 01/10/21 04:01 Eosinophils # (Manual) 0.0 K/mm3 (0.0-0.4) 01/10/21 04:01 Basophils # (Manual) 0.0 K/mm3 (0.0-0.1) 01/10/21 04:01 Metamyelocytes # 0.0 K/mm3 01/10/21 04:01 Myelocytes # 0.0 K/mm3 01/10/21 04:01 Promyelocytes # 0.0 K/mm3 01/10/21 04:01 Blast Cells # 0.0 K/mm3 01/10/21 04:01 WBC Morphology Not Reportable 01/10/21 04:01 Hypersegmented Neuts Not Reportable 01/10/21 04:01 Hyposegmented Neuts Not Reportable 01/10/21 04:01 Hypogranular Neuts Not Reportable 01/10/21 04:01 Smudge Cells Not Reportable 01/10/21 04:01 Toxic Granulation Not Reportable 01/10/21 04:01 Toxic Vacuolation Not Reportable 01/10/21 04:01 Dohle Bodies Not Reportable 01/10/21 04:01 Pelger-Huet Anomaly Not Reportable 01/10/21 04:01 Mirian Rods Not Reportable 01/10/21 04:01 Platelet Estimate Consistent w auto 01/10/21 04:01 Clumped Platelets Not Reportable 01/10/21 04:01 Plt Clumps, EDTA Not Reportable 01/10/21 04:01 Large Platelets Not Reportable 01/10/21 04:01 Giant Platelets Not Reportable 01/10/21 04:01 Platelet Satelliting Not Reportable 01/10/21 04:01 Plt Morphology Comment Not Reportable 01/10/21 04:01 RBC Morphology Not Reportable 01/10/21 04:01 Dimorphic RBCs Not Reportable 01/10/21 04:01 Polychromasia Not Reportable 01/10/21 04:01 Hypochromasia Few 01/10/21 04:01 Poikilocytosis Not Reportable 01/10/21 04:01 Anisocytosis Few 01/10/21 04:01 Microcytosis Few 01/10/21 04:01 Macrocytosis Not Reportable 01/10/21 04:01 Spherocytes Not Reportable 01/10/21 04:01 Pappenheimer Bodies Not Reportable 01/10/21 04:01 Sickle Cells Not Reportable 01/10/21 04:01 Target Cells Not Reportable 01/10/21 04:01 Tear Drop Cells Not Reportable 01/10/21 04:01 Ovalocytes Not Reportable 01/10/21 04:01 Helmet Cells Not Reportable 01/10/21 04:01 [place] Bodies Not Reportable 01/10/21 04:01 [place] Rings Not Reportable 01/10/21 04:01 [place] Cells Not Reportable 01/10/21 04:01 Bite Cells Not Reportable 01/10/21 04:01 Crenated Cell Not Reportable 01/10/21 04:01 Elliptocytes Not Reportable 01/10/21 04:01 Acanthocytes (Spur) Not Reportable 01/10/21 04:01 Rouleaux Not Reportable 01/10/21 04:01 Hemoglobin C Crystals Not Reportable 01/10/21 04:01 Schistocytes Not Reportable 01/10/21 04:01 Malaria parasites Not Reportable 01/10/21 04:01 [place] Bodies Not Reportable 01/10/21 04:01 Hem Pathologist Commnt No 01/10/21 04:01 PT 15.4 Sec. (12.2-14.9) H 01/10/21 04:01 INR 1.17 (0.87-1.13) H 01/10/21 04:01 APTT 40.2 Sec. (24.2-36.6) H 01/10/21 04:01 Fibrinogen 817 mg/dl (211-480) H 01/10/21 04:01 ABG pH 7.484 (7.320-7.450) H 01/13/21 03:14 POC ABG pCO2 34.8 mmHg (32.0-48.0) 01/13/21 03:14 ABG pCO2 37.9 mm Hg 01/05/21 03:50 POC ABG pO2 104.0 mmHg (83-108) 01/13/21 03:14 ABG pO2 136.8 mm Hg (80.0-90.0) H 01/05/21 03:50 POC ABG HCO3 25.6 01/13/21 03:14 ABG HCO3 22.4 mmol/L (20.0-26.0) 01/05/21 03:50 ABG O2 Saturation 98.3 (0-100) 01/13/21 03:14 ABG O2 Content 9.8 (0.0-44) 01/05/21 03:50 POC ABG Base Excess 2.1 01/13/21 03:14 ABG Base Excess -2.3 mmol/L (-2.0-3.0) L 01/05/21 03:50 ABG Hemoglobin 8.4 (12.0-17.5) L 01/13/21 03:14 ABG Oxyhemoglobin 97.0 (94-98) 01/13/21 03:14 ABG Carboxyhemoglobin 1.5 % (0.0-5.0) 01/05/21 03:50 ABG Methemoglobin 0.3 (0.0-1.5) 01/13/21 03:14 ABG Sodium 134.4 mmol/L (136.0-145.0) L 01/13/21 03:14 ABG Potassium 3.1 mmol/L (3.40-4.50) L 01/13/21 03:14 ABG Chloride 99.0 mmol/L (98-107) 01/13/21 03:14 ABG Glucose 117 mg/dL (65-95) H 01/13/21 03:14 Oxyhemoglobin 96.7 % (95.0-99.0) 01/05/21 03:50 Carboxyhemoglobin 1.0 (0.5-1.5) 01/13/21 03:14 FiO2 50 % 01/05/21 03:50 FiO2 % 35.0 01/13/21 03:14 Sodium 153 mmol/L (137-145) H 01/18/21 04:15 Potassium 3.3 mmol/L (3.6-5.0) L 01/18/21 04:15 Chloride 113.1 mmol/L (98-107) H 01/18/21 04:15 Carbon Dioxide 26 mmol/L (22-30) 01/18/21 04:15 Anion Gap 17 mmol/L 01/18/21 04:15 BUN 55 mg/dL (9-20) H 01/18/21 04:15 Creatinine 1.9 mg/dL (0.8-1.3) H 01/18/21 04:15 Estimated GFR 36 ml/min 01/18/21 04:15 BUN/Creatinine Ratio 29 % 01/18/21 04:15 Glucose 100 mg/dL (75-100) 01/18/21 04:15 POC Glucose 89 mg/dL (70-105) 01/18/21 11:35 Lactic Acid 1.70 mmol/L (0.7-2.0) 12/20/20 16:20 Calcium 7.4 mg/dL (8.4-10.2) L 01/18/21 04:15 Ionized Calcium 3.3 mg/dL (4.8-5.6) L 12/27/20 14:40 Phosphorus 4.40 mg/dL (2.5-4.5) 01/17/21 04:30 Magnesium 1.90 mg/dL (1.7-2.3) 01/18/21 10:37 Total Bilirubin 0.50 mg/dL (0.1-1.2) 01/16/21 04:30 AST 19 units/L (5-40) 01/16/21 04:30 ALT 18 units/L (7-56) 01/16/21 04:30 Alkaline Phosphatase 118 units/L (35-129) 01/16/21 04:30 Troponin T < 0.010 ng/mL (0.00-0.029) 12/20/20 13:58 Total Protein 6.4 g/dL (6.3-8.2) 01/16/21 04:30 Albumin 2.1 g/dL (3.9-5) L 01/16/21 04:30 Albumin/Globulin Ratio 0.5 % 01/16/21 04:30 Triglycerides 216 mg/dL (2-149) H 01/17/21 04:30 Arterial Blood Glucose 117 mg/dL (65-95) H 01/13/21 03:14 Arterial Blood Ionized Calcium 4.5 mg/dL (4.6-5.3) L 01/13/21 03:14 Urine Color Yellow (Yellow) 01/16/21 Unknown Urine Turbidity Turbid (Clear) 01/16/21 Unknown Urine pH 6.0 (5.0-7.0) 01/16/21 Unknown Ur Specific [place] 1.010 (1.003-1.030) 01/16/21 Unknown Urine Protein 100 mg/dl mg/dL (Negative) 01/16/21 Unknown Urine Glucose (UA) Neg mg/dL (Negative) 01/16/21 Unknown Urine Ketones Neg mg/dL (Negative) 01/16/21 Unknown Urine Blood Mod (Negative) 01/16/21 Unknown Urine Nitrite Neg (Negative) 01/16/21 Unknown Urine Bilirubin Neg (Negative) 01/16/21 Unknown Urine Urobilinogen < 2.0 mg/dL (<2.0) 01/16/21 Unknown Ur Leukocyte Esterase Lg (Negative) 01/16/21 Unknown Urine WBC (Auto) > 182.0 /HPF (0.0-6.0) H 01/16/21 Unknown Urine RBC (Auto) 154.0 /HPF (0.0-6.0) 01/16/21 Unknown U Epithel Cells (Auto) < 1.0 /HPF (0-13.0) 12/20/20 Unknown Urine Bacteria (Auto) 4+ /HPF (Negative) 01/16/21 Unknown Urine WBC Clumps 3+ /HPF 01/16/21 Unknown Ur Renal Epithelial Cell 8 /LPF 01/16/21 Unknown Triple Phos Crystals 2+ 12/23/20 12:15 Hyaline Casts 11 /LPF 01/16/21 Unknown Urine Mucus Few /HPF 01/16/21 Unknown Urine Eosinophils None seen (None Seen) 12/23/20 12:15 Urine Creatinine 78.1 mg/dL (0.1-20.0) H 12/23/20 12:15 Urine Sodium 13 mmol/L 12/23/20 12:15 Fraction Sodium Excret 0.2 12/23/20 12:15 Random Vancomycin 5.8 ug/mL (0-40.0) 01/17/21 04:30 Coronavirus (PCR) Negative (Negative) 12/21/20 Unknown Hepatitis A IgM Ab Non-reactive (NonReactive) 12/30/20 14:40 Hep Bs Antigen Non-reactive (Negative) 12/30/20 14:40 Hep B Core IgM Ab Non-reactive (NonReactive) 12/30/20 14:40 Hepatitis C Antibody Non-reactive (NonReactive) 12/30/20 14:40 Blood Type A NEGATIVE 01/06/21 11:00 Antibody Screen Negative 01/06/21 11:00 Crossmatch See Detail 01/06/21 11:00 Microbiology: Microbiology 01/16/21 15:24 Abdomen Wound Culture - Preliminary Pseudomonas Aeruginosa Gram Negative Jose Enrique#2 01/16/21 04:40 Peripheral/Venous Blood Culture - Preliminary Gram Negative Jose Enrique 01/16/21 04:50 Peripheral/Venous Blood Culture - Preliminary Gram Negative Jose Enrique Lawrence/IV: Voiding Method Indwelling Catheter Active Medications - Current Medications Current Medications: Generic Name Dose Route Start Last Admin Trade Name Freq PRN Reason Stop Dose Admin Acetaminophen 650 mg 01/16/21 03:57 01/18/21 11:04 Acetaminophen 325 Mg/10.15 Ml Oral Liqd Unit Dose FEEDTUBE 650 mg Q6H PRN Administration Non Cardiac Pain or Temp>100.5 Lipase/Protease/Amylase 1 each 01/07/21 08:44 Lipase 10,500/Protease 25,000/Amylase 43,750 (Units) Dr Cap FEEDTUBE PRN PRN For Clogged Feeding Tube Dextrose 50 ml 12/24/20 10:49 Dextrose 50% In Water (25gm) 50 Ml Syringe IV Q30MIN PRN Hypoglycemia Protocol Famotidine 20 mg 01/17/21 10:00 01/18/21 09:26 Famotidine 20 Mg Tab PO 20 mg BID ASCENCION Administration Fentanyl 1 applic 01/11/21 14:00 01/17/21 10:41 Fentanyl 50 Mcg/Hr Patch 72hr TD 1 applic Q3D ASCENCION Administration Heparin Sodium (Porcine) 5,000 unit 01/06/21 14:00 01/18/21 13:30 Heparin 5,000 Unit/1 Ml Vial SUB-Q 5,000 unit Q8HR ASCENCION Administration Hydromorphone HCl 0.5 mg 01/12/21 10:10 01/17/21 15:00 Hydromorphone 1 Mg/1 Ml Inj IV 0.5 mg Q4H PRN Administration Pain , Severe (7-10) Hydromorphone HCl 0.25 mg 01/12/21 10:11 01/15/21 15:40 Hydromorphone 1 Mg/1 Ml Inj IV 0.25 mg Q4H PRN Administration Pain, Moderate (4-6) Hydrophilic Ointment 1 applic 12/20/20 21:58 Lip Therapy Vaseline TP Q2HR PRN Dry Lips Propofol 1,000 mg in 100 mls @ 3.606 mls/hr 12/20/20 22:00 01/18/21 11:03 Diprivan 10 Mg/Ml IV 15 mcg/kg/min TITR ASCENCION 10.818 mls/hr Administration Protocol 5 MCG/KG/MIN Dexmedetomidine HCl 1,000 mcg/ 260 mls @ 7.322 mls/hr 01/15/21 01:00 01/18/21 13:16 Sodium Chloride IV 1.2 mcg/kg/hr TITRATE ASCENCION 43.93 mls/hr Administration Protocol 0.2 MCG/KG/HR Potassium Chloride/Sodium Chloride 20 meq in 1,000 mls @ 125 mls/hr 01/17/21 10:00 01/18/21 13:02 Ns 0.45/Kcl 20meq IV 100 mls/hr DIRECT ASCENCION Administration MEROPENEM/NS 1 GRAM/100 ML 1 gram in 100 mls @ 100 mls/hr 01/18/21 12:00 01/18/21 13:27 Merrem/Ns 1 Gram/100 Ml IV 100 mls/hr Q12H ASCENCION Administration Protocol Insulin Human Regular 0 units 12/28/20 00:00 01/18/21 12:09 Insulin Regular, Human 100 Units/1 Ml SUB-Q Not Given Q6H [facility] Protocol Metoprolol Tartrate 5 mg 01/14/21 13:37 01/15/21 12:42 Metoprolol Tartrate 5 Mg/5 Ml Inj IV 5 mg Q6H PRN Administration SBP >/=160 Multi-Ingred Cream/Lotion/Oil/Oint 1 applic 12/20/20 21:58 01/03/21 01:13 Mineral Oil/Petrolatum, White Ophth Oint 3.5 Gm OU 1 applic Q4HR PRN Administration Dry Eye(s) Simple Syrup 15 ml 01/07/21 08:44 Simple Syrup 15 Ml FEEDTUBE PRN PRN Hypoglycemia Sodium Bicarbonate 325 mg 01/07/21 08:44 Sodium Bicarbonate 325 Mg Tab FEEDTUBE PRN PRN For Clogged Feeding Tube Sodium Chloride 10 ml 12/20/20 22:00 01/18/21 09:26 Sodium Chloride 0.9% 10 Ml Flush Syringe IV 10 ml BID ASCENCION Administration Sodium Chloride 10 ml 12/20/20 16:42 01/17/21 06:01 Sodium Chloride 0.9% 10 Ml Flush Syringe IV 10 ml PRN PRN Administration LINE FLUSH Nutrition/Malnutrition Assess - Dietary Evaluation Nutrition/Malnutrition Findings: Nutrition Notes Start: 12/21/20 09:06 Freq: Status: Active Protocol: Document 01/18/21 13:09 CW (Rec: 01/18/21 13:19 [id number]) Nutrition Notes Initial or Follow up Reassessment Current Diagnosis Acute Kidney Injury,Coronary Artery Disease,Sepsis, Hypertension,Small Bowel Obstruction,Hyperlipidemia Other Pertinent Diagnosis gangrenous small bowel, s/p small bowel ressection, peritonitis Current Diet Nepro 1.8 at 40 ml/hr Labs/Tests Na 153 K 3.3 BUN 55 Cr 1.9 Pertinent Medications KCl 20 mEq in 1/2NS Propofol at 10.818 ml/hr (285 kcal) KCL 40 mEq ducolax Height 6 ft Weight 102.2 kg [place] Body Weight (kg) 80.90 BMI 30.5 Weight change and time frame -40% weight change x 19 days Weight Status Obese Subjective/Other Information F/U for TF tolerance. Weight is trending downwards. Cannot increase TF for weight stablization d/t renal functioning. Pt has not recieved HD since 01/14 will adjust protein needs Percent of energy/protein needs met: 100%/100% Burn Absent Trauma Absent Current % PO Negligible Minimum of two criteria No #2 Nutrition Diagnosis Increased nutrient needs ( specify in comment below) Diagnosis Progress(for reassessment Continues documentation) #1 Nutrition Diagnosis Inadequate oral intake Diagnosis Progress(for reassessment Continues documentation) Is patient on ventilator? Yes Is Patient Ambulatory and/or Out of Bed No REE-(Emanuel-St. Jeor-confined to bed) 2254.440 Kcal/Kg value to use for calculation 15 Approximate Energy Requirements Using 1533 kcal/Kg Calculation Used for Recommendations Kcal/kg Additional Notes Pro needs 54 - 73g(0.6 - 0.8g/ kg adjBW: 91.55) Fluid needs per MD. Nutrition Intervention Change Diet Order: Increase flush; continue TF Nutrition Support: Nepro 40 ml/hr is reached. Flush 175 ml q4h or per MD. Increase flush to 350 ml q4h Kcal 1,728 Protein (gm) 72 Fluid (mL) 779 Goal #1 TF tolerance Goal #2 Meet at least 75% of kcal and protein needs via TF Follow-Up By: 01/20/21 Additional Comments F/U for TF tolerance; weight; HD
[2021-01-17] MEDS: ACETAMINOPHEN 325 MG/10.15 ML ORAL LIQD UNIT DOSE FEEDTUBE PRN (23:37)
[2021-01-18] MEDS: HYDROmorphone 1 MG/1 ML INJ IV SCH ×3 (02:23→09:25)
[2021-01-18] MEDS: FREE WATER PO SCH ×6 (02:25→21:19)
[2021-01-18 04:52] LABS: Calcium 7.4 mg/dL (8.4-10.2)
[2021-01-18] MEDS: dexmedeTOMIDine 1,000 MCG in SODIUM CHLORIDE 0.9% 250ML 250 ML IV SCH ×3 (04:52→21:17)
[2021-01-18] MEDS: HEPARIN 5,000 UNIT/1 ML VIAL SUB-Q SCH ×3 (06:12→21:26)
[2021-01-18] MEDS: INSULIN REGULAR, HUMAN 100 UNITS/1 ML SUB-Q SCH ×3 (06:59→17:50)
--- NOTE | 2021-01-18 09:05 | Progress Note ---
Assessment and Plan Impression * Nonoliguric acute kidney injury secondary to ATN --HD initiated December 30 * Incarcerated hernia with ischemic bowel. Status post bowel resection * Hypernatremia, * Fluid overload * Sepsis * Respiratory failure, intubated * Hyperkalemia * Metabolic Acidosis, Gap * Hypoalbuminemia * Anemia * Bacteremia Recommendations * Patient with good UOP. Patient seems to be in diuretic phase of ATN. * Serum creatinine is also trending down. Shall continue to hold dialysis for now. * Do not anticipate need for additional dialysis treatment. Patient is bacteremic. Okay to remove Vas-Cath * Would recommend maintaining Lawrence catheter for now * Transfuse for Hb < 7 * TPN per nutrition/primary * Pressors prn to maintain MAP greater than 65 * Avoid nephrotoxins * Monitor fluid status and electrolytes * Replace potassium * Continue hypotonic IV fluid with added potassium * Add free water through feeding tube as well Subjective Date of service: 01/18/21 Principal diagnosis: SBO and necrosis of large part of small intestine Interval history: Patient remains on the ventilator. Currently on 40% FiO2. Oxygen saturation is 100%. Objective - Vital Signs Vital signs: Vital Signs - 12hr 01/17/21 01/17/21 01/17/21 21:15 21:30 21:45 Temperature Pulse Rate 96 H 97 H 93 H Respiratory 32 H 30 H 33 H Rate Blood Pressure 163/74 151/68 154/69 O2 Sat by Pulse 100 100 100 Oximetry 01/17/21 01/17/21 01/17/21 22:00 22:15 22:30 Temperature Pulse Rate 98 H 97 H 97 H Respiratory 28 H 29 H 26 H Rate Blood Pressure 169/76 166/73 160/74 O2 Sat by Pulse 100 100 100 Oximetry 01/17/21 01/17/21 01/17/21 22:45 22:51 23:00 Temperature Pulse Rate 98 H 99 H 93 H Respiratory 25 H 25 H Rate Blood Pressure 154/76 148/65 O2 Sat by Pulse 100 100 Oximetry 01/17/21 01/17/21 01/17/21 23:01 23:15 23:30 Temperature Pulse Rate 93 H 98 H 100 H Respiratory 25 H 27 H 19 Rate Blood Pressure 148/65 142/73 166/75 O2 Sat by Pulse 100 100 100 Oximetry 01/17/21 01/17/21 01/18/21 23:45 23:58 00:00 Temperature 101.8 F H Pulse Rate 99 H 101 H Respiratory 23 27 H Rate Blood Pressure 148/71 139/77 O2 Sat by Pulse 100 100 Oximetry 01/18/21 01/18/21 01/18/21 00:15 00:31 00:45 Temperature Pulse Rate 93 H 89 93 H Respiratory 18 25 H 32 H Rate Blood Pressure 143/72 113/60 145/71 O2 Sat by Pulse 100 100 100 Oximetry 01/18/21 01/18/21 01/18/21 00:46 01:01 01:15 Temperature Pulse Rate 93 H 90 91 H Respiratory 26 H 31 H Rate Blood Pressure 145/71 123/58 143/75 O2 Sat by Pulse 100 100 100 Oximetry 01/18/21 01/18/21 01/18/21 01:30 01:45 02:00 Temperature Pulse Rate 90 90 87 Respiratory 21 27 H 27 H Rate Blood Pressure 134/70 134/73 120/61 O2 Sat by Pulse 100 100 100 Oximetry 01/18/21 01/18/21 01/18/21 02:15 02:30 02:45 Temperature Pulse Rate 86 89 90 Respiratory 24 28 H 27 H Rate Blood Pressure 115/56 136/77 125/69 O2 Sat by Pulse 100 100 100 Oximetry 01/18/21 01/18/21 01/18/21 03:00 03:15 03:30 Temperature Pulse Rate 85 83 87 Respiratory 25 H 24 22 Rate Blood Pressure 126/64 126/64 116/62 O2 Sat by Pulse 100 100 100 Oximetry 01/18/21 01/18/21 01/18/21 03:32 03:45 04:00 Temperature 101.7 F H Pulse Rate 85 90 Respiratory 27 H 31 H Rate Blood Pressure 120/63 124/66 O2 Sat by Pulse 100 100 Oximetry 01/18/21 01/18/21 01/18/21 04:15 04:20 04:30 Temperature Pulse Rate 96 H 103 H 100 H Respiratory 33 H 29 H Rate Blood Pressure 124/66 136/79 129/75 O2 Sat by Pulse 100 100 100 Oximetry 01/18/21 01/18/21 01/18/21 04:45 05:01 05:15 Temperature Pulse Rate 108 H 103 H 100 H Respiratory 27 H 53 H 43 H Rate Blood Pressure 129/75 152/84 134/71 O2 Sat by Pulse 100 100 100 Oximetry 01/18/21 01/18/21 01/18/21 05:30 05:45 06:00 Temperature Pulse Rate 101 H 95 H 93 H Respiratory 36 H 28 H 27 H Rate Blood Pressure 148/83 146/81 141/81 O2 Sat by Pulse 100 100 100 Oximetry 01/18/21 01/18/21 07:00 08:40 Temperature 101.3 F H Pulse Rate 89 Respiratory Rate Blood Pressure 149/84 O2 Sat by Pulse 100 Oximetry - General Appearance General appearance: well-developed, well-nourished, appears stated age, intubated EENT: PERRL, mucous membranes moist Neck: other (Right IJ Vas-Cath in place) Respiratory: Present: Ronchi (Few scattered rhonchi) Cardiology: regular, normal heart rate Gastrointestinal: other (Midline dressing noted. Abdominal binder in place.) Integumentary: other (Trace edema. Wrinkling of skin noted.) - Lab 01/17/21 04:30 01/18/21 04:15 Most recent lab results ABG pH 7.484 (7.320-7.450) H 01/13/21 03:14 ABG pCO2 37.9 mm Hg 01/05/21 03:50 ABG pO2 136.8 mm Hg (80.0-90.0) H 01/05/21 03:50 ABG HCO3 22.4 mmol/L (20.0-26.0) 01/05/21 03:50 ABG O2 Saturation 98.3 (0-100) 01/13/21 03:14 Calcium 7.4 mg/dL (8.4-10.2) L 01/18/21 04:15 Phosphorus 4.40 mg/dL (2.5-4.5) 01/17/21 04:30 Magnesium 1.40 mg/dL (1.7-2.3) L 01/17/21 04:30 Urine Creatinine 78.1 mg/dL (0.1-20.0) H 12/23/20 12:15 Urine Sodium 13 mmol/L 12/23/20 12:15 Medications & Allergies - Medications Allergies/Adverse Reactions: Allergies Iodinated Contrast Media Adverse Reaction (Verified 09/04/18 14:20) Unknown Home Medications: Home Medications Medication Instructions Recorded Confirmed Last Taken Type Aspirin 81 mg PO DAILY #30 tab.chew 09/08/18 01/04/21 03/31/20 09:28 Rx AtorvaSTATin [Lipitor] 80 mg PO QHS tablet 05/08/19 01/04/21 03/28/20 Rx Albuterol Sulfate [Proventil Hfa] 13.4 gm IH Q6H #1 hfa.aer.ad 04/01/20 01/04/21 Unknown Rx Clopidogrel [Plavix] 75 mg PO DAILY #30 tablet 04/01/20 01/04/21 Unknown Rx Gabapentin 300 mg PO BID@0700,1800 30 Days 04/01/20 01/04/21 Unknown Rx capsule Gabapentin 600 mg PO QHS 30 Days capsule 04/01/20 01/04/21 Unknown Rx Metoprolol [Lopressor TAB] 25 mg PO BID #60 tablet 04/01/20 01/04/21 Unknown Rx [place]-3/Dha/Epa/Fish Oil [[place] 3 1 each PO BID #60 capsule 04/01/20 01/04/21 Unknown Rx 500 Softgel] Tiotropium [place] [Spiriva] 2 puff IH DAILY #30 cap.w.dev 04/01/20 01/04/21 Unknown Rx Ubidecarenone [Co Q-10] 10 mg PO BID #60 tab 04/01/20 01/04/21 03/29/20 Rx cilostazoL [Pletal] 50 mg PO BID 30 Days tablet 04/01/20 01/04/21 Unknown Rx oxyCODONE /ACETAMINOPHEN [Percocet 2 tab PO Q6H PRN tablet 04/01/20 01/04/21 Unknown Rx 5/325 mg] Phosphorus #1 [K-Phos Neutral] 250 mg PO QID 2 Days #8 tablet 09/14/20 01/04/21 Unknown Rx Active Medications: Generic Name Dose Route Start Last Admin Trade Name Freq PRN Reason Stop Dose Admin Acetaminophen 650 mg 01/16/21 03:57 01/17/21 23:37 Acetaminophen 325 Mg/10.15 Ml Oral Liqd Unit Dose FEEDTUBE 650 mg Q6H PRN Administration Non Cardiac Pain or Temp>100.5 Lipase/Protease/Amylase 1 each 01/07/21 08:44 Lipase 10,500/Protease 25,000/Amylase 43,750 (Units) Dr Maharaj FEEDTUBE PRN PRN For Clogged Feeding Tube Bisacodyl 10 mg 12/30/20 11:00 01/17/21 10:49 Bisacodyl 10 Mg Rect Supp [place] 10 mg QDAY ASCENCION Administration Dextrose 50 ml 12/24/20 10:49 Dextrose 50% In Water (25gm) 50 Ml Syringe IV Q30MIN PRN Hypoglycemia Protocol Famotidine 20 mg 01/17/21 10:00 01/17/21 22:29 Famotidine 20 Mg Tab PO 20 mg BID ASCENCION Administration Fentanyl 1 applic 01/11/21 14:00 01/17/21 10:41 Fentanyl 50 Mcg/Hr Patch 72hr TD 1 applic Q3D ASCENCION Administration Heparin Sodium (Porcine) 5,000 unit 01/06/21 14:00 01/18/21 06:12 Heparin 5,000 Unit/1 Ml Vial SUB-Q 5,000 unit Q8HR ASCENCION Administration Hydromorphone HCl 1 mg 01/11/21 14:00 01/18/21 06:12 Hydromorphone 1 Mg/1 Ml Inj IV 1 mg Q4HR ASCENCION Administration Hydromorphone HCl 0.5 mg 01/12/21 10:10 01/17/21 15:00 Hydromorphone 1 Mg/1 Ml Inj IV 0.5 mg Q4H PRN Administration Pain , Severe (7-10) Hydromorphone HCl 0.25 mg 01/12/21 10:11 01/15/21 15:40 Hydromorphone 1 Mg/1 Ml Inj IV 0.25 mg Q4H PRN Administration Pain, Moderate (4-6) Hydrophilic Ointment 1 applic 12/20/20 21:58 Lip Therapy Vaseline TP Q2HR PRN Dry Lips Propofol 1,000 mg in 100 mls @ 3.606 mls/hr 12/20/20 22:00 01/18/21 02:21 Diprivan 10 Mg/Ml IV 15 mcg/kg/min TITR ASCENCION 10.818 mls/hr Administration Protocol 5 MCG/KG/MIN Nicardipine HCl 50 mg/ Sodium 250 mls @ 25 mls/hr 01/11/21 09:00 01/15/21 04:32 Chloride IV 0 mg/hr TITR ASCENCION 0 mls/hr Titration Protocol 5 MG/HR Dexmedetomidine HCl 1,000 mcg/ 260 mls @ 7.322 mls/hr 01/15/21 01:00 01/18/21 04:52 Sodium Chloride IV 1.2 mcg/kg/hr TITRATE ASCENCION 43.93 mls/hr Administration Protocol 0.2 MCG/KG/HR Cefepime HCl 1 gm in 100 mls @ 200 mls/hr 01/16/21 12:00 01/17/21 13:18 Cefepime/Ns 1 Gm/100 Ml IV 200 mls/hr Q12H ASCENCION Administration Protocol Potassium Chloride/Sodium Chloride 20 meq in 1,000 mls @ 100 mls/hr 01/17/21 10:00 01/17/21 22:53 Ns 0.45/Kcl 20meq IV 100 mls/hr DIRECT ASCENCION Administration Insulin Human Regular 0 units 12/28/20 00:00 01/18/21 06:59 Insulin Regular, Human 100 Units/1 Ml SUB-Q Not Given Q6H ASCENCION Protocol Metoprolol Tartrate 5 mg 01/14/21 13:37 01/15/21 12:42 Metoprolol Tartrate 5 Mg/5 Ml Inj IV 5 mg Q6H PRN Administration SBP >/=160 Multi-Ingred Cream/Lotion/Oil/Oint 1 applic 12/20/20 21:58 01/03/21 01:13 Mineral Oil/Petrolatum, White Ophth Oint 3.5 Gm OU 1 applic Q4HR PRN Administration Dry Eye(s) Ondansetron HCl 4 mg 01/11/21 08:09 Ondansetron 4 Mg/2 Ml Inj IV Q8H PRN Nausea And Vomiting Potassium Chloride 40 meq 01/18/21 08:00 Potassium Chloride 20 Meq Packet FEEDTUBE 01/18/21 10:01 BID ASCENCION Simple Syrup 15 ml 01/07/21 08:44 Simple Syrup 15 Ml FEEDTUBE PRN PRN Hypoglycemia Simple Syrup 30 ml 01/07/21 08:44 Simple Syrup 15 Ml FEEDTUBE PRN PRN Hypoglycemia Sodium Bicarbonate 325 mg 01/07/21 08:44 Sodium Bicarbonate 325 Mg Tab FEEDTUBE PRN PRN For Clogged Feeding Tube Sodium Chloride 10 ml 12/20/20 22:00 01/17/21 22:28 Sodium Chloride 0.9% 10 Ml Flush Syringe IV 10 ml BID ASCENCION Administration Sodium Chloride 10 ml 12/20/20 16:42 06/29/21 06:01 Sodium Chloride 0.9% 10 Ml Flush Syringe IV 10 ml PRN PRN Administration LINE FLUSH
--- NOTE | 2021-01-18 09:15 | Progress Note ---
Assessment and Plan 60 y/o male with abdominal catastrophe, s/p ex-lap with open abdomen, ventilated for pain control and support. 01/18/21: Ok with transfer to LTACH. Spoke with nursing today about removal of vascath and changing of haley. Will be done. Abx per ID. asked [employer] to speak with surgery in regards to wound if any further therapy is needed. Defer to renal in regards to further therapy for electrolytes. 01/17/21: Will discuss renal but most likely vascath should be removed. Abx per ID. Renal has requested the haley stay in for urine output measurement and I agree. Waiting to here from insurer about lTACH as patient will need it for v ent recovery and weaning. Monitor BP closely, may need to start replacing fluids 1:1. Will defer to renal on type of fluid given electrolyte imbalances. Prognosis still remains guarded. 01/16/21: Follow up blood cultures from last night. need to send ua as well. Renal holding HD today, hopeful patient is in the diuretic phase of ATN. Will have RT place patient on PSV trial today to see how he does. Hold on abx therapy for right now. If cultures come back positive, will need to remove r ight IJ vascath which was just placed on Saturday at the suggestion of infection control and infectious days. completed letter for insurance for patient today, hopeful will be LTACH approved soon. 01/13/21: Place IJ vascath today. Added PRN dilaudid on lebron of scheduled dilaudid. Goal is to not put patient back on continuous drip for pain so that we can facilitate weaning. needs peer to peer for LTACH approval. Continue supportive measures. 01/12/21: Patient getting dialysis today. Continue to control pain, added PRN dilauded on top of scheduled dosing as patient still gets very agitated off diprovan. Will discuss with renal plans for future HD as ID and Infection control are very concerned about the groin catheter. If permanent dialysis then will ask that IR place permcath. if they feel intermittent, then will place IJ and remove femoral vascath. 01/11/21: Will increase pain regimen. Scheduled the dilaudid to q4 and add a fent patch. Would like to avoid drip as we are trying to actively wean patient from mechanical ventilation. Spoke with CM who states LTACH has accepted patient but we are waiting on insurance authorization. HgB is stable this am and reviewed surgery and IR recs. I do no think the area of fluid needs to be sampled. 01/10/21: Spoke with surgery this am about CT findings. Will discuss with IR their thoughts on fluid. Not concerned about infection in that area. Main reason for CT was to see if we could figure out where blood was going as it was coming out of his bottom or NG contents. This is appears to be something small and slow, like a venous issues. Hopefully it has sealed off at this time. HgB is up to 8 this am patient did not get blood on yesterday. Off fent now, will continue to wean Diprovan and Precedex as tolerated. Spoke with CM and asked to send out to LTACH's but will steal try to aggressively wean. Making good urine, hopeful kidney's will recover. Will ask renal about other ways to remove volume in third spacing (albumin, lasix etc). Prognosis still remains guarded. Continue TPN for now. 01/09/21: Will obtain contrasted CT of abdomen and pelvis to look for potential pockets of blood or bleeding. Spoke with renal and they feel kidneys are recovering but ok with HD tomorrow if needed post dye load. Will attempt to wean Fent more and use prn dilaudid. Will start reglan to help with gut motility. Hopeful to be off TPN soon. Once sedation is off, can start SBT's. CCT 31 minutes. Subjective Date of service: 01/18/21 Principal diagnosis: SBO and necrosis of large part of small intestine Interval history: GNR in wound culture as well as blood. Renal function is better but electrolytes worse. Insurance company has approved transfer to [facility]. Patient still spiking temps. Haley and vascath were not changed and removed on yesterday respectively. Objective Vital Signs - 12hr 01/17/21 01/17/21 01/17/21 21:30 21:45 22:00 Temperature Pulse Rate 97 H 93 H 98 H Respiratory 30 H 33 H 28 H Rate Blood Pressure 151/68 154/69 169/76 O2 Sat by Pulse 100 100 100 Oximetry 01/17/21 01/17/21 01/17/21 22:15 22:30 22:45 Temperature Pulse Rate 97 H 97 H 98 H Respiratory 29 H 26 H 25 H Rate Blood Pressure 166/73 160/74 154/76 O2 Sat by Pulse 100 100 100 Oximetry 01/17/21 01/17/21 01/17/21 22:51 23:00 23:01 Temperature Pulse Rate 99 H 93 H 93 H Respiratory 25 H 25 H Rate Blood Pressure 148/65 148/65 O2 Sat by Pulse 100 100 Oximetry 01/17/21 01/17/21 01/17/21 23:15 23:30 23:45 Temperature Pulse Rate 98 H 100 H 99 H Respiratory 27 H 19 23 Rate Blood Pressure 142/73 166/75 148/71 O2 Sat by Pulse 100 100 100 Oximetry 01/17/21 01/18/21 01/18/21 23:58 00:00 00:15 Temperature 101.8 F H Pulse Rate 101 H 93 H Respiratory 27 H 18 Rate Blood Pressure 139/77 143/72 O2 Sat by Pulse 100 100 Oximetry 01/18/21 01/18/21 01/18/21 00:31 00:45 00:46 Temperature Pulse Rate 89 93 H 93 H Respiratory 25 H 32 H Rate Blood Pressure 113/60 145/71 145/71 O2 Sat by Pulse 100 100 100 Oximetry 01/18/21 01/18/21 01/18/21 01:01 01:15 01:30 Temperature Pulse Rate 90 91 H 90 Respiratory 26 H 31 H 21 Rate Blood Pressure 123/58 143/75 134/70 O2 Sat by Pulse 100 100 100 Oximetry 01/18/21 01/18/21 01/18/21 01:45 02:00 02:15 Temperature Pulse Rate 90 87 86 Respiratory 27 H 27 H 24 Rate Blood Pressure 134/73 120/61 115/56 O2 Sat by Pulse 100 100 100 Oximetry 01/18/21 01/18/21 01/18/21 02:30 02:45 03:00 Temperature Pulse Rate 89 90 85 Respiratory 28 H 27 H 25 H Rate Blood Pressure 136/77 125/69 126/64 O2 Sat by Pulse 100 100 100 Oximetry 01/18/21 01/18/21 01/18/21 03:15 03:30 03:32 Temperature 101.7 F H Pulse Rate 83 87 Respiratory 24 22 Rate Blood Pressure 126/64 116/62 O2 Sat by Pulse 100 100 Oximetry 01/18/21 01/18/21 01/18/21 03:45 04:00 04:15 Temperature Pulse Rate 85 90 96 H Respiratory 27 H 31 H 33 H Rate Blood Pressure 120/63 124/66 124/66 O2 Sat by Pulse 100 100 100 Oximetry 01/18/21 01/18/21 01/18/21 04:20 04:30 04:45 Temperature Pulse Rate 103 H 100 H 108 H Respiratory 29 H 27 H Rate Blood Pressure 136/79 129/75 129/75 O2 Sat by Pulse 100 100 100 Oximetry 01/18/21 01/18/21 01/18/21 05:01 05:15 05:30 Temperature Pulse Rate 103 H 100 H 101 H Respiratory 53 H 43 H 36 H Rate Blood Pressure 152/84 134/71 148/83 O2 Sat by Pulse 100 100 100 Oximetry 01/18/21 01/18/21 01/18/21 05:45 06:00 07:00 Temperature 101.3 F H Pulse Rate 95 H 93 H Respiratory 28 H 27 H Rate Blood Pressure 146/81 141/81 O2 Sat by Pulse 100 100 Oximetry 01/18/21 08:40 Temperature Pulse Rate 89 Respiratory Rate Blood Pressure 149/84 O2 Sat by Pulse 100 Oximetry Constitutional: other (critically ill on ventilator and back on sedation) Eyes: non-icteric ENT: oropharynx moist Neck: supple Effort: normal Ascultation: Bilateral: other (coarse BS bilaterally) Cardiovascular: other (tachy, RR; no mrg) Gastrointestinal: other (abdomen open) Integumentary: normal Extremities: no cyanosis, no edema, pink and warm Neurologic: other (sedated) CBC and BMP: 01/18/21 10:37 01/18/21 04:15 ABG, PT/INR, D-dimer: ABG ABG pH 7.484 (7.320-7.450) H 01/13/21 03:14 POC ABG pCO2 34.8 mmHg (32.0-48.0) 01/13/21 03:14 ABG pCO2 37.9 mm Hg 01/05/21 03:50 POC ABG pO2 104.0 mmHg (83-108) 01/13/21 03:14 ABG pO2 136.8 mm Hg (80.0-90.0) H 01/05/21 03:50 POC ABG HCO3 25.6 01/13/21 03:14 ABG O2 Saturation 98.3 (0-100) 01/13/21 03:14 PT/INR, D-dimer PT 15.4 Sec. (12.2-14.9) H 01/10/21 04:01 INR 1.17 (0.87-1.13) H 01/10/21 04:01 Abnormal lab findings: Abnormal Labs 12/20/20 12/20/20 12/20/20 13:58 13:58 13:58 WBC 41.1 H* RBC 5.59 H Hgb 16.2 H Hct 47.7 H MCV MCHC RDW 15.5 H Plt Count 486 H Lymph % (Auto) Eos % (Auto) Lymph # (Auto) Eos # (Auto) Seg Neutrophils % Seg Neuts % (Manual) Lymphocytes % (Manual) Seg Neutrophils # Seg Neutrophils # Man Lymphocytes # (Manual) Monocytes # (Manual) PT INR APTT Fibrinogen ABG pH POC ABG pCO2 POC ABG pO2 ABG pO2 ABG Base Excess ABG Hemoglobin ABG Oxyhemoglobin ABG Sodium ABG Potassium ABG Chloride ABG Glucose Carboxyhemoglobin Sodium 130 L Potassium Chloride 80.7 L Carbon Dioxide BUN 37 H Creatinine Glucose 101 H POC Glucose Lactic Acid 3.20 H* Calcium Ionized Calcium Phosphorus Magnesium AST Alkaline Phosphatase 142 H Total Protein 6.2 L Albumin 2.2 L Triglycerides Arterial Blood Glucose Arterial Blood Ionized Calcium Urine WBC (Auto) Urine Creatinine Crossmatch 12/20/20 12/20/20 12/20/20 13:58 20:35 21:30 WBC RBC Hgb Hct MCV MCHC RDW Plt Count Lymph % (Auto) Eos % (Auto) Lymph # (Auto) Eos # (Auto) Seg Neutrophils % Seg Neuts % (Manual) Lymphocytes % (Manual) Seg Neutrophils # Seg Neutrophils # Man Lymphocytes # (Manual) Monocytes # (Manual) PT INR APTT 49.4 H Fibrinogen ABG pH 7.313 L POC ABG pCO2 POC ABG pO2 ABG pO2 104.4 H ABG Base Excess ABG Hemoglobin ABG Oxyhemoglobin ABG Sodium ABG Potassium ABG Chloride ABG Glucose Carboxyhemoglobin Sodium Potassium Chloride Carbon Dioxide BUN Creatinine Glucose POC Glucose 122 H Lactic Acid Calcium Ionized Calcium Phosphorus Magnesium AST Alkaline Phosphatase Total Protein Albumin Triglycerides Arterial Blood Glucose Arterial Blood Ionized Calcium Urine WBC (Auto) Urine Creatinine Crossmatch 12/21/20 12/21/20 12/21/20 03:06 08:14 08:14 WBC 23.9 H RBC Hgb Hct MCV MCHC RDW 15.7 H Plt Count Lymph % (Auto) Eos % (Auto) Lymph # (Auto) Eos # (Auto) Seg Neutrophils % Seg Neuts % (Manual) 91.0 H Lymphocytes % (Manual) 3.0 L Seg Neutrophils # Seg Neutrophils # Man 21.7 H Lymphocytes # (Manual) 0.7 L Monocytes # (Manual) 1.4 H PT INR APTT Fibrinogen ABG pH 7.464 H POC ABG pCO2 POC ABG pO2 202.9 H ABG pO2 ABG Base Excess ABG Hemoglobin ABG Oxyhemoglobin ABG Sodium 133.7 L ABG Potassium ABG Chloride ABG Glucose 122 H Carboxyhemoglobin Sodium Potassium Chloride Carbon Dioxide BUN 46 H Creatinine Glucose 103 H POC Glucose Lactic Acid Calcium 6.6 L D Ionized Calcium Phosphorus Magnesium AST Alkaline Phosphatase Total Protein 5.4 L Albumin 2.3 L Triglycerides Arterial Blood Glucose 122 H Arterial Blood Ionized Calcium 3.5 L Urine WBC (Auto) Urine Creatinine Crossmatch 12/21/20 12/21/20 12/22/20 17:18 21:28 04:45 WBC 22.9 H RBC Hgb Hct MCV MCHC RDW 15.7 H Plt Count Lymph % (Auto) Eos % (Auto) Lymph # (Auto) Eos # (Auto) Seg Neutrophils % Seg Neuts % (Manual) Lymphocytes % (Manual) Seg Neutrophils # Seg Neutrophils # Man Lymphocytes # (Manual) Monocytes # (Manual) PT INR APTT Fibrinogen ABG pH POC ABG pCO2 POC ABG pO2 ABG pO2 ABG Base Excess ABG Hemoglobin ABG Oxyhemoglobin ABG Sodium ABG Potassium ABG Chloride ABG Glucose Carboxyhemoglobin Sodium Potassium Chloride Carbon Dioxide BUN Creatinine Glucose POC Glucose 108 H Lactic Acid Calcium Ionized Calcium 4.1 L Phosphorus Magnesium AST Alkaline Phosphatase Total Protein Albumin Triglycerides Arterial Blood Glucose Arterial Blood Ionized Calcium Urine WBC (Auto) Urine Creatinine Crossmatch 12/22/20 12/22/20 12/22/20 04:45 05:00 11:38 WBC RBC Hgb Hct MCV MCHC RDW Plt Count Lymph % (Auto) Eos % (Auto) Lymph # (Auto) Eos # (Auto) Seg Neutrophils % Seg Neuts % (Manual) Lymphocytes % (Manual) Seg Neutrophils # Seg Neutrophils # Man Lymphocytes # (Manual) Monocytes # (Manual) PT INR APTT Fibrinogen ABG pH 7.462 H POC ABG pCO2 POC ABG pO2 ABG pO2 ABG Base Excess ABG Hemoglobin ABG Oxyhemoglobin ABG Sodium ABG Potassium ABG Chloride ABG Glucose 118 H Carboxyhemoglobin Sodium 146 H Potassium Chloride Carbon Dioxide BUN 45 H Creatinine Glucose 116 H POC Glucose 115 H Lactic Acid Calcium 6.9 L Ionized Calcium Phosphorus Magnesium AST Alkaline Phosphatase Total Protein Albumin Triglycerides Arterial Blood Glucose 118 H Arterial Blood Ionized Calcium 3.8 L Urine WBC (Auto) Urine Creatinine Crossmatch 12/22/20 12/23/20 12/23/20 23:26 04:43 04:45 WBC 22.2 H RBC Hgb Hct MCV MCHC RDW 16.1 H Plt Count Lymph % (Auto) Eos % (Auto) Lymph # (Auto) Eos # (Auto) Seg Neutrophils % Seg Neuts % (Manual) Lymphocytes % (Manual) Seg Neutrophils # Seg Neutrophils # Man Lymphocytes # (Manual) Monocytes # (Manual) PT INR APTT Fibrinogen ABG pH POC ABG pCO2 POC ABG pO2 ABG pO2 ABG Base Excess ABG Hemoglobin ABG Oxyhemoglobin ABG Sodium 147.4 H ABG Potassium ABG Chloride 112.0 H ABG Glucose 130 H Carboxyhemoglobin 0.4 L Sodium Potassium Chloride Carbon Dioxide BUN Creatinine Glucose POC Glucose 110 H Lactic Acid Calcium Ionized Calcium Phosphorus Magnesium AST Alkaline Phosphatase Total Protein Albumin Triglycerides Arterial Blood Glucose 130 H Arterial Blood Ionized Calcium 3.8 L Urine WBC (Auto) Urine Creatinine Crossmatch 12/23/20 12/23/20 12/23/20 04:45 05:17 11:22 WBC RBC Hgb Hct MCV MCHC RDW Plt Count Lymph % (Auto) Eos % (Auto) Lymph # (Auto) Eos # (Auto) Seg Neutrophils % Seg Neuts % (Manual) Lymphocytes % (Manual) Seg Neutrophils # Seg Neutrophils # Man Lymphocytes # (Manual) Monocytes # (Manual) PT INR APTT Fibrinogen ABG pH POC ABG pCO2 POC ABG pO2 ABG pO2 ABG Base Excess ABG Hemoglobin ABG Oxyhemoglobin ABG Sodium ABG Potassium ABG Chloride ABG Glucose Carboxyhemoglobin Sodium 154 H D Potassium Chloride 110.9 H Carbon Dioxide BUN 54 H Creatinine 1.8 H Glucose 115 H POC Glucose 116 H 130 H Lactic Acid Calcium 7.0 L Ionized Calcium Phosphorus Magnesium AST Alkaline Phosphatase Total Protein Albumin Triglycerides Arterial Blood Glucose Arterial Blood Ionized Calcium Urine WBC (Auto) Urine Creatinine Crossmatch 12/23/20 12/23/20 12/23/20 12:15 12:15 23:15 WBC RBC Hgb Hct MCV MCHC RDW Plt Count Lymph % (Auto) Eos % (Auto) Lymph # (Auto) Eos # (Auto) Seg Neutrophils % Seg Neuts % (Manual) Lymphocytes % (Manual) Seg Neutrophils # Seg Neutrophils # Man Lymphocytes # (Manual) Monocytes # (Manual) PT INR APTT Fibrinogen ABG pH POC ABG pCO2 POC ABG pO2 ABG pO2 ABG Base Excess ABG Hemoglobin ABG Oxyhemoglobin ABG Sodium ABG Potassium ABG Chloride ABG Glucose Carboxyhemoglobin Sodium 154 H Potassium Chloride Carbon Dioxide BUN Creatinine 1.5 H Glucose POC Glucose 132 H Lactic Acid Calcium Ionized Calcium Phosphorus Magnesium AST Alkaline Phosphatase Total Protein Albumin Triglycerides Arterial Blood Glucose Arterial Blood Ionized Calcium Urine WBC (Auto) Urine Creatinine 78.1 H Crossmatch 12/24/20 12/24/20 12/24/20 04:19 04:30 04:30 WBC 18.3 H RBC Hgb Hct MCV MCHC RDW 16.5 H Plt Count Lymph % (Auto) Eos % (Auto) Lymph # (Auto) Eos # (Auto) Seg Neutrophils % Seg Neuts % (Manual) Lymphocytes % (Manual) Seg Neutrophils # Seg Neutrophils # Man Lymphocytes # (Manual) Monocytes # (Manual) PT INR APTT Fibrinogen ABG pH POC ABG pCO2 POC ABG pO2 ABG pO2 ABG Base Excess ABG Hemoglobin ABG Oxyhemoglobin ABG Sodium 149.7 H ABG Potassium ABG Chloride 116.0 H ABG Glucose 180 H Carboxyhemoglobin Sodium 155 H Potassium Chloride 116.1 H Carbon Dioxide BUN 52 H Creatinine 1.5 H Glucose 175 H POC Glucose Lactic Acid Calcium 6.8 L Ionized Calcium Phosphorus Magnesium 3.00 H AST Alkaline Phosphatase Total Protein 5.7 L Albumin 1.8 L Triglycerides Arterial Blood Glucose 180 H Arterial Blood Ionized Calcium 3.7 L Urine WBC (Auto) Urine Creatinine Crossmatch 12/24/20 12/24/20 12/24/20 05:24 11:21 18:05 WBC RBC Hgb Hct MCV MCHC RDW Plt Count Lymph % (Auto) Eos % (Auto) Lymph # (Auto) Eos # (Auto) Seg Neutrophils % Seg Neuts % (Manual) Lymphocytes % (Manual) Seg Neutrophils # Seg Neutrophils # Man Lymphocytes # (Manual) Monocytes # (Manual) PT INR APTT Fibrinogen ABG pH POC ABG pCO2 POC ABG pO2 ABG pO2 ABG Base Excess ABG Hemoglobin ABG Oxyhemoglobin ABG Sodium ABG Potassium ABG Chloride ABG Glucose Carboxyhemoglobin Sodium Potassium Chloride Carbon Dioxide BUN Creatinine Glucose POC Glucose 153 H 154 H 133 H Lactic Acid Calcium Ionized Calcium Phosphorus Magnesium AST Alkaline Phosphatase Total Protein Albumin Triglycerides Arterial Blood Glucose Arterial Blood Ionized Calcium Urine WBC (Auto) Urine Creatinine Crossmatch 12/25/20 12/25/20 12/25/20 04:00 07:00 07:00 WBC 17.6 H RBC Hgb Hct MCV MCHC 31 L RDW 16.0 H Plt Count Lymph % (Auto) Eos % (Auto) Lymph # (Auto) Eos # (Auto) Seg Neutrophils % Seg Neuts % (Manual) Lymphocytes % (Manual) Seg Neutrophils # Seg Neutrophils # Man Lymphocytes # (Manual) Monocytes # (Manual) PT INR APTT Fibrinogen ABG pH POC ABG pCO2 POC ABG pO2 ABG pO2 ABG Base Excess ABG Hemoglobin ABG Oxyhemoglobin ABG Sodium 152.5 H ABG Potassium ABG Chloride 119.0 H ABG Glucose 136 H Carboxyhemoglobin Sodium Potassium Chloride Carbon Dioxide BUN Creatinine Glucose POC Glucose Lactic Acid Calcium Ionized Calcium Phosphorus Magnesium 2.70 H AST Alkaline Phosphatase Total Protein Albumin Triglycerides Arterial Blood Glucose 136 H Arterial Blood Ionized Calcium 3.7 L Urine WBC (Auto) Urine Creatinine Crossmatch 12/25/20 12/25/20 12/25/20 07:00 11:24 16:32 WBC RBC Hgb Hct MCV MCHC RDW Plt Count Lymph % (Auto) Eos % (Auto) Lymph # (Auto) Eos # (Auto) Seg Neutrophils % Seg Neuts % (Manual) Lymphocytes % (Manual) Seg Neutrophils # Seg Neutrophils # Man Lymphocytes # (Manual) Monocytes # (Manual) PT INR APTT Fibrinogen ABG pH POC ABG pCO2 POC ABG pO2 ABG pO2 ABG Base Excess ABG Hemoglobin ABG Oxyhemoglobin ABG Sodium ABG Potassium ABG Chloride ABG Glucose Carboxyhemoglobin Sodium 156 H Potassium Chloride 118.0 H Carbon Dioxide BUN 44 H Creatinine 1.7 H Glucose 126 H POC Glucose 110 H 126 H Lactic Acid Calcium 6.9 L Ionized Calcium Phosphorus Magnesium AST Alkaline Phosphatase Total Protein Albumin Triglycerides Arterial Blood Glucose Arterial Blood Ionized Calcium Urine WBC (Auto) Urine Creatinine Crossmatch 12/25/20 12/25/20 12/26/20 18:18 23:23 03:30 WBC RBC Hgb Hct MCV MCHC RDW Plt Count Lymph % (Auto) Eos % (Auto) Lymph # (Auto) Eos # (Auto) Seg Neutrophils % Seg Neuts % (Manual) Lymphocytes % (Manual) Seg Neutrophils # Seg Neutrophils # Man Lymphocytes # (Manual) Monocytes # (Manual) PT INR APTT Fibrinogen ABG pH POC ABG pCO2 POC ABG pO2 ABG pO2 ABG Base Excess ABG Hemoglobin 11.8 L ABG Oxyhemoglobin ABG Sodium ABG Potassium 4.7 H ABG Chloride 114.0 H ABG Glucose 132 H Carboxyhemoglobin Sodium 151 H Potassium Chloride 114.3 H Carbon Dioxide BUN 51 H Creatinine 2.6 H D Glucose 122 H POC Glucose 115 H Lactic Acid Calcium 6.4 L Ionized Calcium Phosphorus Magnesium AST Alkaline Phosphatase Total Protein Albumin Triglycerides Arterial Blood Glucose 132 H Arterial Blood Ionized Calcium 3.6 L Urine WBC (Auto) Urine Creatinine Crossmatch 12/26/20 12/26/20 12/26/20 04:55 06:01 06:01 WBC 21.6 H RBC Hgb Hct MCV MCHC 31 L RDW 16.5 H Plt Count 136 L Lymph % (Auto) Eos % (Auto) Lymph # (Auto) Eos # (Auto) Seg Neutrophils % Seg Neuts % (Manual) Lymphocytes % (Manual) Seg Neutrophils # Seg Neutrophils # Man Lymphocytes # (Manual) Monocytes # (Manual) PT INR APTT Fibrinogen ABG pH POC ABG pCO2 POC ABG pO2 ABG pO2 ABG Base Excess ABG Hemoglobin ABG Oxyhemoglobin ABG Sodium ABG Potassium ABG Chloride ABG Glucose Carboxyhemoglobin Sodium 173 H* D Potassium 6.1 H* D Chloride 137.0 H Carbon Dioxide BUN 73 H Creatinine 3.8 H Glucose 125 H POC Glucose 112 H Lactic Acid Calcium 6.2 L Ionized Calcium Phosphorus 5.70 H D Magnesium 2.90 H AST Alkaline Phosphatase Total Protein Albumin Triglycerides Arterial Blood Glucose Arterial Blood Ionized Calcium Urine WBC (Auto) Urine Creatinine Crossmatch 12/26/20 12/26/20 12/26/20 08:33 11:19 22:00 WBC RBC Hgb Hct MCV MCHC RDW Plt Count Lymph % (Auto) Eos % (Auto) Lymph # (Auto) Eos # (Auto) Seg Neutrophils % Seg Neuts % (Manual) Lymphocytes % (Manual) Seg Neutrophils # Seg Neutrophils # Man Lymphocytes # (Manual) Monocytes # (Manual) PT INR APTT Fibrinogen ABG pH POC ABG pCO2 POC ABG pO2 ABG pO2 ABG Base Excess ABG Hemoglobin ABG Oxyhemoglobin ABG Sodium ABG Potassium ABG Chloride ABG Glucose Carboxyhemoglobin Sodium 147 H D Potassium 5.8 H D Chloride 108.8 H Carbon Dioxide 21 L BUN 68 H 68 H Creatinine 3.8 H 4.1 H Glucose 144 H 154 H POC Glucose 144 H Lactic Acid Calcium 6.5 L 5.8 L* Ionized Calcium Phosphorus Magnesium AST 215 H Alkaline Phosphatase Total Protein 4.7 L Albumin 1.5 L Triglycerides Arterial Blood Glucose Arterial Blood Ionized Calcium Urine WBC (Auto) Urine Creatinine Crossmatch 12/26/20 12/26/20 12/27/20 23:13 Unknown 00:25 WBC RBC Hgb 11.1 L Hct MCV MCHC RDW Plt Count Lymph % (Auto) Eos % (Auto) Lymph # (Auto) Eos # (Auto) Seg Neutrophils % Seg Neuts % (Manual) Lymphocytes % (Manual) Seg Neutrophils # Seg Neutrophils # Man Lymphocytes # (Manual) Monocytes # (Manual) PT INR APTT Fibrinogen ABG pH POC ABG pCO2 POC ABG pO2 ABG pO2 ABG Base Excess ABG Hemoglobin ABG Oxyhemoglobin ABG Sodium ABG Potassium ABG Chloride ABG Glucose Carboxyhemoglobin Sodium Potassium Chloride Carbon Dioxide BUN Creatinine Glucose POC Glucose 163 H Lactic Acid Calcium Ionized Calcium Phosphorus 5.60 H Magnesium AST Alkaline Phosphatase Total Protein Albumin Triglycerides Arterial Blood Glucose Arterial Blood Ionized Calcium Urine WBC (Auto) Urine Creatinine Crossmatch 12/27/20 12/27/20 12/27/20 02:57 04:15 04:15 WBC 28.5 H RBC Hgb 11.2 L Hct MCV MCHC 31 L RDW 16.5 H Plt Count 130 L Lymph % (Auto) Eos % (Auto) Lymph # (Auto) Eos # (Auto) Seg Neutrophils % Seg Neuts % (Manual) Lymphocytes % (Manual) Seg Neutrophils # Seg Neutrophils # Man Lymphocytes # (Manual) Monocytes # (Manual) PT INR APTT Fibrinogen ABG pH 7.238 L POC ABG pCO2 POC ABG pO2 139.1 H ABG pO2 ABG Base Excess ABG Hemoglobin 11.2 L ABG Oxyhemoglobin ABG Sodium 133.8 L ABG Potassium 5.2 H ABG Chloride ABG Glucose 182 H Carboxyhemoglobin Sodium 136 L Potassium 6.0 H Chloride Carbon Dioxide 18 L BUN 68 H Creatinine 4.1 H Glucose 166 H POC Glucose Lactic Acid Calcium 6.2 L Ionized Calcium Phosphorus 7.30 H D Magnesium AST Alkaline Phosphatase Total Protein Albumin Triglycerides 164 H Arterial Blood Glucose 182 H Arterial Blood Ionized Calcium 3.4 L Urine WBC (Auto) Urine Creatinine Crossmatch 12/27/20 12/27/20 12/27/20 04:50 10:51 11:17 WBC RBC Hgb Hct MCV MCHC RDW Plt Count Lymph % (Auto) Eos % (Auto) Lymph # (Auto) Eos # (Auto) Seg Neutrophils % Seg Neuts % (Manual) Lymphocytes % (Manual) Seg Neutrophils # Seg Neutrophils # Man Lymphocytes # (Manual) Monocytes # (Manual) PT INR APTT Fibrinogen ABG pH POC ABG pCO2 POC ABG pO2 ABG pO2 ABG Base Excess ABG Hemoglobin ABG Oxyhemoglobin ABG Sodium ABG Potassium ABG Chloride ABG Glucose Carboxyhemoglobin Sodium Potassium Chloride Carbon Dioxide BUN Creatinine Glucose POC Glucose 140 H 113 H 154 H Lactic Acid Calcium Ionized Calcium Phosphorus Magnesium AST Alkaline Phosphatase Total Protein Albumin Triglycerides Arterial Blood Glucose Arterial Blood Ionized Calcium Urine WBC (Auto) Urine Creatinine Crossmatch 12/27/20 12/27/20 12/27/20 12:40 14:40 23:17 WBC RBC Hgb Hct MCV MCHC RDW Plt Count Lymph % (Auto) Eos % (Auto) Lymph # (Auto) Eos # (Auto) Seg Neutrophils % Seg Neuts % (Manual) Lymphocytes % (Manual) Seg Neutrophils # Seg Neutrophils # Man Lymphocytes # (Manual) Monocytes # (Manual) PT INR APTT Fibrinogen ABG pH POC ABG pCO2 POC ABG pO2 ABG pO2 ABG Base Excess ABG Hemoglobin ABG Oxyhemoglobin ABG Sodium ABG Potassium ABG Chloride ABG Glucose Carboxyhemoglobin Sodium 135 L Potassium Chloride Carbon Dioxide 21 L BUN 62 H Creatinine 3.8 H Glucose 132 H POC Glucose 130 H Lactic Acid Calcium 5.6 L* Ionized Calcium 3.3 L Phosphorus Magnesium AST Alkaline Phosphatase Total Protein Albumin Triglycerides Arterial Blood Glucose Arterial Blood Ionized Calcium Urine WBC (Auto) Urine Creatinine Crossmatch 12/28/20 12/28/20 12/28/20 05:36 07:08 07:28 WBC 27.2 H RBC 3.50 L Hgb 9.6 L Hct 30.8 L MCV MCHC 31 L RDW 16.1 H Plt Count 111 L Lymph % (Auto) Eos % (Auto) Lymph # (Auto) Eos # (Auto) Seg Neutrophils % Seg Neuts % (Manual) 95.0 H Lymphocytes % (Manual) Seg Neutrophils # Seg Neutrophils # Man 25.8 H Lymphocytes # (Manual) 0.0 L Monocytes # (Manual) 1.1 H PT INR APTT Fibrinogen ABG pH 7.200 L POC ABG pCO2 POC ABG pO2 67.2 L ABG pO2 ABG Base Excess ABG Hemoglobin 10.3 L ABG Oxyhemoglobin 89.6 L ABG Sodium 127.8 L ABG Potassium 5.1 H ABG Chloride ABG Glucose 132 H Carboxyhemoglobin 0.4 L Sodium Potassium Chloride Carbon Dioxide BUN Creatinine Glucose POC Glucose 128 H Lactic Acid Calcium Ionized Calcium Phosphorus Magnesium AST Alkaline Phosphatase Total Protein Albumin Triglycerides Arterial Blood Glucose 132 H Arterial Blood Ionized Calcium 3.5 L Urine WBC (Auto) Urine Creatinine Crossmatch 12/28/20 12/28/20 12/28/20 07:28 11:37 13:25 WBC RBC Hgb Hct MCV MCHC RDW Plt Count Lymph % (Auto) Eos % (Auto) Lymph # (Auto) Eos # (Auto) Seg Neutrophils % Seg Neuts % (Manual) Lymphocytes % (Manual) Seg Neutrophils # Seg Neutrophils # Man Lymphocytes # (Manual) Monocytes # (Manual) PT INR APTT Fibrinogen ABG pH POC ABG pCO2 POC ABG pO2 ABG pO2 ABG Base Excess ABG Hemoglobin ABG Oxyhemoglobin ABG Sodium ABG Potassium ABG Chloride ABG Glucose Carboxyhemoglobin Sodium 131 L 133 L Potassium 5.9 H 5.1 H Chloride 97.1 L Carbon Dioxide 15 L 21 L BUN 70 H 77 H Creatinine 4.0 H 4.4 H Glucose 118 H 140 H POC Glucose 135 H Lactic Acid Calcium 6.3 L 6.3 L Ionized Calcium Phosphorus 7.10 H Magnesium AST 144 H Alkaline Phosphatase Total Protein 4.8 L Albumin 1.3 L Triglycerides Arterial Blood Glucose Arterial Blood Ionized Calcium Urine WBC (Auto) Urine Creatinine Crossmatch 12/28/20 12/28/20 12/29/20 16:38 23:28 03:08 WBC RBC Hgb Hct MCV MCHC RDW Plt Count Lymph % (Auto) Eos % (Auto) Lymph # (Auto) Eos # (Auto) Seg Neutrophils % Seg Neuts % (Manual) Lymphocytes % (Manual) Seg Neutrophils # Seg Neutrophils # Man Lymphocytes # (Manual) Monocytes # (Manual) PT INR APTT Fibrinogen ABG pH 7.301 L POC ABG pCO2 POC ABG pO2 151.1 H ABG pO2 ABG Base Excess ABG Hemoglobin 8.7 L ABG Oxyhemoglobin 98.2 H ABG Sodium 123.4 L ABG Potassium ABG Chloride 97.0 L ABG Glucose 144 H Carboxyhemoglobin Sodium Potassium Chloride Carbon Dioxide BUN Creatinine Glucose POC Glucose 140 H 134 H Lactic Acid Calcium Ionized Calcium Phosphorus Magnesium AST Alkaline Phosphatase Total Protein Albumin Triglycerides Arterial Blood Glucose 144 H Arterial Blood Ionized Calcium 3.4 L Urine WBC (Auto) Urine Creatinine Crossmatch 12/29/20 12/29/20 12/29/20 05:20 05:20 06:01 WBC 21.0 H RBC 2.89 L Hgb 8.1 L Hct 25.5 L MCV MCHC RDW 16.1 H Plt Count 124 L Lymph % (Auto) Eos % (Auto) Lymph # (Auto) Eos # (Auto) Seg Neutrophils % Seg Neuts % (Manual) Lymphocytes % (Manual) Seg Neutrophils # Seg Neutrophils # Man Lymphocytes # (Manual) Monocytes # (Manual) PT INR APTT Fibrinogen ABG pH POC ABG pCO2 POC ABG pO2 ABG pO2 ABG Base Excess ABG Hemoglobin ABG Oxyhemoglobin ABG Sodium ABG Potassium ABG Chloride ABG Glucose Carboxyhemoglobin Sodium 131 L Potassium Chloride 93.4 L Carbon Dioxide BUN 79 H Creatinine 4.7 H Glucose 122 H POC Glucose 108 H Lactic Acid Calcium 5.5 L* Ionized Calcium Phosphorus 5.70 H Magnesium 1.60 L AST Alkaline Phosphatase Total Protein Albumin Triglycerides Arterial Blood Glucose Arterial Blood Ionized Calcium Urine WBC (Auto) Urine Creatinine Crossmatch 12/29/20 12/29/20 12/29/20 10:04 11:27 17:31 WBC RBC Hgb Hct MCV MCHC RDW Plt Count Lymph % (Auto) Eos % (Auto) Lymph # (Auto) Eos # (Auto) Seg Neutrophils % Seg Neuts % (Manual) Lymphocytes % (Manual) Seg Neutrophils # Seg Neutrophils # Man Lymphocytes # (Manual) Monocytes # (Manual) PT INR APTT Fibrinogen ABG pH POC ABG pCO2 POC ABG pO2 ABG pO2 ABG Base Excess ABG Hemoglobin ABG Oxyhemoglobin ABG Sodium ABG Potassium ABG Chloride ABG Glucose Carboxyhemoglobin Sodium Potassium Chloride Carbon Dioxide BUN Creatinine Glucose POC Glucose 107 H 112 H 110 H Lactic Acid Calcium Ionized Calcium Phosphorus Magnesium AST Alkaline Phosphatase Total Protein Albumin Triglycerides Arterial Blood Glucose Arterial Blood Ionized Calcium Urine WBC (Auto) Urine Creatinine Crossmatch 12/30/20 12/30/20 12/30/20 03:31 08:06 17:39 WBC RBC Hgb Hct MCV MCHC RDW Plt Count Lymph % (Auto) Eos % (Auto) Lymph # (Auto) Eos # (Auto) Seg Neutrophils % Seg Neuts % (Manual) Lymphocytes % (Manual) Seg Neutrophils # Seg Neutrophils # Man Lymphocytes # (Manual) Monocytes # (Manual) PT INR APTT Fibrinogen ABG pH 7.261 L POC ABG pCO2 POC ABG pO2 123.1 H ABG pO2 ABG Base Excess ABG Hemoglobin 8.7 L ABG Oxyhemoglobin ABG Sodium 123.2 L ABG Potassium ABG Chloride 96.0 L ABG Glucose 112 H Carboxyhemoglobin Sodium 128 L Potassium Chloride 90.7 L Carbon Dioxide 21 L BUN 86 H Creatinine 4.9 H Glucose 107 H POC Glucose 134 H Lactic Acid Calcium 6.2 L Ionized Calcium Phosphorus 5.30 H Magnesium 1.50 L AST Alkaline Phosphatase Total Protein Albumin Triglycerides Arterial Blood Glucose 112 H Arterial Blood Ionized Calcium 3.2 L Urine WBC (Auto) Urine Creatinine Crossmatch 12/30/20 12/31/20 12/31/20 22:45 02:14 04:40 WBC RBC Hgb Hct MCV MCHC RDW Plt Count Lymph % (Auto) Eos % (Auto) Lymph # (Auto) Eos # (Auto) Seg Neutrophils % Seg Neuts % (Manual) Lymphocytes % (Manual) Seg Neutrophils # Seg Neutrophils # Man Lymphocytes # (Manual) Monocytes # (Manual) PT INR APTT Fibrinogen ABG pH 7.267 L POC ABG pCO2 POC ABG pO2 ABG pO2 ABG Base Excess ABG Hemoglobin 8.0 L ABG Oxyhemoglobin 93.7 L ABG Sodium ABG Potassium ABG Chloride 95.0 L ABG Glucose 108 H Carboxyhemoglobin 1.7 H Sodium 126 L Potassium Chloride 90.3 L Carbon Dioxide 20 L BUN 70 H Creatinine 4.3 H Glucose 209 H POC Glucose 109 H Lactic Acid Calcium 6.6 L Ionized Calcium Phosphorus 4.70 H Magnesium 1.60 L AST Alkaline Phosphatase Total Protein Albumin Triglycerides 157 H Arterial Blood Glucose 108 H Arterial Blood Ionized Calcium 3.7 L Urine WBC (Auto) Urine Creatinine Crossmatch 12/31/20 12/31/20 01/01/21 16:23 23:21 04:00 WBC 18.0 H RBC 2.75 L Hgb 7.7 L Hct 23.9 L MCV MCHC RDW 15.6 H Plt Count Lymph % (Auto) Eos % (Auto) Lymph # (Auto) Eos # (Auto) Seg Neutrophils % Seg Neuts % (Manual) 91.0 H Lymphocytes % (Manual) 6.0 L Seg Neutrophils # Seg Neutrophils # Man 16.4 H Lymphocytes # (Manual) 1.1 L Monocytes # (Manual) PT INR APTT Fibrinogen ABG pH 7.264 L POC ABG pCO2 POC ABG pO2 74.8 L ABG pO2 ABG Base Excess ABG Hemoglobin 7.1 L ABG Oxyhemoglobin 92.1 L ABG Sodium 124.9 L ABG Potassium ABG Chloride 95.0 L ABG Glucose 111 H Carboxyhemoglobin 1.7 H Sodium Potassium Chloride Carbon Dioxide BUN Creatinine Glucose POC Glucose 125 H Lactic Acid Calcium Ionized Calcium Phosphorus Magnesium AST Alkaline Phosphatase Total Protein Albumin Triglycerides Arterial Blood Glucose 111 H Arterial Blood Ionized Calcium 4.0 L Urine WBC (Auto) Urine Creatinine Crossmatch 01/01/21 01/01/21 01/01/21 05:50 13:41 15:55 WBC RBC Hgb Hct MCV MCHC RDW Plt Count Lymph % (Auto) Eos % (Auto) Lymph # (Auto) Eos # (Auto) Seg Neutrophils % Seg Neuts % (Manual) Lymphocytes % (Manual) Seg Neutrophils # Seg Neutrophils # Man Lymphocytes # (Manual) Monocytes # (Manual) PT INR APTT Fibrinogen ABG pH 7.148 L 7.207 L POC ABG pCO2 53.1 H POC ABG pO2 57.3 L 138.4 H ABG pO2 ABG Base Excess ABG Hemoglobin 9.0 L 8.3 L ABG Oxyhemoglobin 83.2 L ABG Sodium 126.2 L 124.5 L ABG Potassium ABG Chloride 95.0 L 95.0 L ABG Glucose 96 H 120 H Carboxyhemoglobin Sodium 131 L Potassium Chloride 93.3 L Carbon Dioxide 21 L BUN 67 H Creatinine 4.2 H Glucose POC Glucose Lactic Acid Calcium 7.1 L Ionized Calcium Phosphorus Magnesium AST 60 H Alkaline Phosphatase Total Protein 4.8 L Albumin 1.4 L Triglycerides Arterial Blood Glucose 96 H 120 H Arterial Blood Ionized Calcium 4.1 L 3.9 L Urine WBC (Auto) Urine Creatinine Crossmatch 01/01/21 01/01/21 01/02/21 17:09 23:24 03:47 WBC RBC Hgb Hct MCV MCHC RDW Plt Count Lymph % (Auto) Eos % (Auto) Lymph # (Auto) Eos # (Auto) Seg Neutrophils % Seg Neuts % (Manual) Lymphocytes % (Manual) Seg Neutrophils # Seg Neutrophils # Man Lymphocytes # (Manual) Monocytes # (Manual) PT INR APTT Fibrinogen ABG pH 7.276 L POC ABG pCO2 POC ABG pO2 173.6 H ABG pO2 ABG Base Excess ABG Hemoglobin 7 L ABG Oxyhemoglobin ABG Sodium 122.4 L ABG Potassium ABG Chloride 94.0 L ABG Glucose 118 H Carboxyhemoglobin Sodium Potassium Chloride Carbon Dioxide BUN Creatinine Glucose POC Glucose 124 H 119 H Lactic Acid Calcium Ionized Calcium Phosphorus Magnesium AST Alkaline Phosphatase Total Protein Albumin Triglycerides Arterial Blood Glucose 118 H Arterial Blood Ionized Calcium 4.0 L Urine WBC (Auto) Urine Creatinine Crossmatch 01/02/21 01/02/21 01/02/21 05:33 08:00 08:00 WBC 19.7 H RBC 2.53 L Hgb 7.1 L Hct 22.0 L MCV MCHC RDW 16.4 H Plt Count Lymph % (Auto) Eos % (Auto) Lymph # (Auto) Eos # (Auto) Seg Neutrophils % Seg Neuts % (Manual) Lymphocytes % (Manual) Seg Neutrophils # Seg Neutrophils # Man Lymphocytes # (Manual) Monocytes # (Manual) PT INR APTT Fibrinogen ABG pH POC ABG pCO2 POC ABG pO2 ABG pO2 ABG Base Excess ABG Hemoglobin ABG Oxyhemoglobin ABG Sodium ABG Potassium ABG Chloride ABG Glucose Carboxyhemoglobin Sodium 127 L Potassium Chloride 89.3 L Carbon Dioxide 19 L BUN 82 H Creatinine 5.0 H Glucose 103 H POC Glucose 107 H Lactic Acid Calcium 7.8 L Ionized Calcium Phosphorus 6.40 H Magnesium AST 47 H Alkaline Phosphatase Total Protein 5.0 L Albumin 1.6 L Triglycerides Arterial Blood Glucose Arterial Blood Ionized Calcium Urine WBC (Auto) Urine Creatinine Crossmatch 01/02/21 01/03/21 01/03/21 17:25 07:56 09:47 WBC 17.7 H RBC 2.19 L Hgb 6.2 L Hct 18.5 L* MCV MCHC RDW 16.1 H Plt Count Lymph % (Auto) Eos % (Auto) Lymph # (Auto) Eos # (Auto) Seg Neutrophils % Seg Neuts % (Manual) Lymphocytes % (Manual) Seg Neutrophils # Seg Neutrophils # Man Lymphocytes # (Manual) Monocytes # (Manual) PT INR APTT Fibrinogen ABG pH POC ABG pCO2 POC ABG pO2 ABG pO2 ABG Base Excess ABG Hemoglobin ABG Oxyhemoglobin ABG Sodium ABG Potassium ABG Chloride ABG Glucose Carboxyhemoglobin Sodium 130 L Potassium 3.5 L Chloride 90.3 L Carbon Dioxide BUN 68 H Creatinine 3.9 H Glucose 103 H POC Glucose 116 H Lactic Acid Calcium 8.0 L Ionized Calcium Phosphorus 4.80 H D Magnesium AST Alkaline Phosphatase Total Protein Albumin Triglycerides Arterial Blood Glucose Arterial Blood Ionized Calcium Urine WBC (Auto) Urine Creatinine Crossmatch 01/03/21 01/03/21 01/04/21 11:00 19:00 03:12 WBC 17.0 H RBC 2.51 L Hgb 7.1 L Hct 21.5 L MCV MCHC RDW 16.6 H Plt Count Lymph % (Auto) Eos % (Auto) Lymph # (Auto) Eos # (Auto) Seg Neutrophils % Seg Neuts % (Manual) Lymphocytes % (Manual) Seg Neutrophils # Seg Neutrophils # Man Lymphocytes # (Manual) Monocytes # (Manual) PT INR APTT Fibrinogen ABG pH 7.463 H POC ABG pCO2 POC ABG pO2 72.2 L ABG pO2 ABG Base Excess ABG Hemoglobin 6.2 L ABG Oxyhemoglobin 91.8 L ABG Sodium 128.4 L ABG Potassium 3.3 L ABG Chloride 96.0 L ABG Glucose 112 H Carboxyhemoglobin Sodium Potassium Chloride Carbon Dioxide BUN Creatinine Glucose POC Glucose Lactic Acid Calcium Ionized Calcium Phosphorus Magnesium AST Alkaline Phosphatase Total Protein Albumin Triglycerides Arterial Blood Glucose 112 H Arterial Blood Ionized Calcium 4.3 L Urine WBC (Auto) Urine Creatinine Crossmatch See Detail 01/04/21 01/04/21 01/04/21 05:16 06:20 06:20 WBC 18.5 H RBC 2.53 L Hgb 7.4 L Hct 21.9 L MCV MCHC RDW 15.8 H Plt Count Lymph % (Auto) Eos % (Auto) Lymph # (Auto) Eos # (Auto) Seg Neutrophils % Seg Neuts % (Manual) Lymphocytes % (Manual) Seg Neutrophils # Seg Neutrophils # Man Lymphocytes # (Manual) Monocytes # (Manual) PT INR APTT Fibrinogen ABG pH POC ABG pCO2 POC ABG pO2 ABG pO2 ABG Base Excess ABG Hemoglobin ABG Oxyhemoglobin ABG Sodium ABG Potassium ABG Chloride ABG Glucose Carboxyhemoglobin Sodium 135 L Potassium Chloride 95.2 L Carbon Dioxide BUN 56 H Creatinine 3.2 H Glucose 109 H POC Glucose 123 H Lactic Acid Calcium 7.6 L Ionized Calcium Phosphorus Magnesium AST Alkaline Phosphatase Total Protein Albumin Triglycerides Arterial Blood Glucose Arterial Blood Ionized Calcium Urine WBC (Auto) Urine Creatinine Crossmatch 01/05/21 01/05/21 01/05/21 03:50 07:22 07:22 WBC 23.8 H RBC 2.93 L Hgb 8.2 L Hct 25.1 L MCV MCHC RDW 16.5 H Plt Count Lymph % (Auto) Eos % (Auto) Lymph # (Auto) Eos # (Auto) Seg Neutrophils % Seg Neuts % (Manual) Lymphocytes % (Manual) Seg Neutrophils # Seg Neutrophils # Man Lymphocytes # (Manual) Monocytes # (Manual) PT INR APTT Fibrinogen ABG pH POC ABG pCO2 POC ABG pO2 ABG pO2 136.8 H ABG Base Excess -2.3 L ABG Hemoglobin 6.9 L ABG Oxyhemoglobin ABG Sodium ABG Potassium ABG Chloride ABG Glucose Carboxyhemoglobin Sodium 134 L Potassium Chloride 93.3 L Carbon Dioxide BUN 77 H Creatinine 4.2 H Glucose 105 H POC Glucose Lactic Acid Calcium Ionized Calcium Phosphorus 4.90 H D Magnesium AST Alkaline Phosphatase Total Protein Albumin Triglycerides Arterial Blood Glucose Arterial Blood Ionized Calcium Urine WBC (Auto) Urine Creatinine Crossmatch 01/05/21 01/05/21 01/05/21 11:02 14:06 15:37 WBC RBC Hgb Hct MCV MCHC RDW Plt Count Lymph % (Auto) Eos % (Auto) Lymph # (Auto) Eos # (Auto) Seg Neutrophils % Seg Neuts % (Manual) Lymphocytes % (Manual) Seg Neutrophils # Seg Neutrophils # Man Lymphocytes # (Manual) Monocytes # (Manual) PT INR APTT Fibrinogen ABG pH POC ABG pCO2 POC ABG pO2 332.3 H ABG pO2 ABG Base Excess ABG Hemoglobin 7.7 L ABG Oxyhemoglobin 98.7 H ABG Sodium 131.0 L ABG Potassium 3.3 L ABG Chloride 97.0 L ABG Glucose 118 H Carboxyhemoglobin Sodium Potassium Chloride Carbon Dioxide BUN Creatinine Glucose POC Glucose 118 H 111 H Lactic Acid Calcium Ionized Calcium Phosphorus Magnesium AST Alkaline Phosphatase Total Protein Albumin Triglycerides Arterial Blood Glucose 118 H Arterial Blood Ionized Calcium 4.4 L Urine WBC (Auto) Urine Creatinine Crossmatch 01/05/21 01/06/21 01/06/21 23:18 04:00 04:20 WBC RBC Hgb Hct MCV MCHC RDW Plt Count Lymph % (Auto) Eos % (Auto) Lymph # (Auto) Eos # (Auto) Seg Neutrophils % Seg Neuts % (Manual) Lymphocytes % (Manual) Seg Neutrophils # Seg Neutrophils # Man Lymphocytes # (Manual) Monocytes # (Manual) PT INR APTT Fibrinogen ABG pH POC ABG pCO2 POC ABG pO2 230.5 H ABG pO2 ABG Base Excess ABG Hemoglobin 7.9 L ABG Oxyhemoglobin 98.5 H ABG Sodium 129.4 L ABG Potassium ABG Chloride 97.0 L ABG Glucose 117 H Carboxyhemoglobin Sodium 133 L Potassium Chloride 94.4 L Carbon Dioxide BUN 62 H Creatinine 3.6 H Glucose 110 H POC Glucose 110 H Lactic Acid Calcium 7.8 L Ionized Calcium Phosphorus Magnesium AST Alkaline Phosphatase Total Protein Albumin Triglycerides Arterial Blood Glucose 117 H Arterial Blood Ionized Calcium 4.5 L Urine WBC (Auto) Urine Creatinine Crossmatch 01/06/21 01/06/21 01/06/21 05:28 09:00 11:00 WBC 15.2 H RBC 2.18 L Hgb 6.5 L Hct 21.8 L MCV 100 H MCHC 30 L RDW 18.5 H Plt Count Lymph % (Auto) Eos % (Auto) Lymph # (Auto) Eos # (Auto) Seg Neutrophils % Seg Neuts % (Manual) Lymphocytes % (Manual) Seg Neutrophils # Seg Neutrophils # Man Lymphocytes # (Manual) Monocytes # (Manual) PT INR APTT Fibrinogen ABG pH POC ABG pCO2 POC ABG pO2 ABG pO2 ABG Base Excess ABG Hemoglobin ABG Oxyhemoglobin ABG Sodium ABG Potassium ABG Chloride ABG Glucose Carboxyhemoglobin Sodium Potassium Chloride Carbon Dioxide BUN Creatinine Glucose POC Glucose 109 H Lactic Acid Calcium Ionized Calcium Phosphorus Magnesium AST Alkaline Phosphatase Total Protein Albumin Triglycerides Arterial Blood Glucose Arterial Blood Ionized Calcium Urine WBC (Auto) Urine Creatinine Crossmatch See Detail 01/06/21 01/06/21 01/07/21 11:32 23:44 03:10 WBC 15.3 H RBC 2.30 L Hgb 6.7 L Hct 20.1 L MCV MCHC RDW 16.6 H Plt Count Lymph % (Auto) Eos % (Auto) Lymph # (Auto) Eos # (Auto) Seg Neutrophils % Seg Neuts % (Manual) Lymphocytes % (Manual) Seg Neutrophils # Seg Neutrophils # Man Lymphocytes # (Manual) Monocytes # (Manual) PT INR APTT Fibrinogen ABG pH POC ABG pCO2 POC ABG pO2 ABG pO2 ABG Base Excess ABG Hemoglobin ABG Oxyhemoglobin ABG Sodium ABG Potassium ABG Chloride ABG Glucose Carboxyhemoglobin Sodium Potassium Chloride Carbon Dioxide BUN Creatinine Glucose POC Glucose 113 H 118 H Lactic Acid Calcium Ionized Calcium Phosphorus Magnesium AST Alkaline Phosphatase Total Protein Albumin Triglycerides Arterial Blood Glucose Arterial Blood Ionized Calcium Urine WBC (Auto) Urine Creatinine Crossmatch 01/07/21 01/07/21 01/07/21 03:10 04:17 05:06 WBC RBC Hgb Hct MCV MCHC RDW Plt Count Lymph % (Auto) Eos % (Auto) Lymph # (Auto) Eos # (Auto) Seg Neutrophils % Seg Neuts % (Manual) Lymphocytes % (Manual) Seg Neutrophils # Seg Neutrophils # Man Lymphocytes # (Manual) Monocytes # (Manual) PT INR APTT Fibrinogen ABG pH 7.272 L POC ABG pCO2 50.1 H POC ABG pO2 ABG pO2 ABG Base Excess ABG Hemoglobin 8.4 L ABG Oxyhemoglobin ABG Sodium 128.6 L ABG Potassium ABG Chloride 95.0 L ABG Glucose 109 H Carboxyhemoglobin Sodium 133 L Potassium Chloride 93.6 L Carbon Dioxide BUN 85 H Creatinine 3.9 H Glucose 112 H POC Glucose 106 H Lactic Acid Calcium Ionized Calcium Phosphorus 4.70 H D Magnesium AST Alkaline Phosphatase Total Protein Albumin Triglycerides Arterial Blood Glucose 109 H Arterial Blood Ionized Calcium Urine WBC (Auto) Urine Creatinine Crossmatch 01/07/21 01/07/21 01/07/21 14:05 16:00 23:25 WBC RBC Hgb 8.1 L Hct 24.2 L MCV MCHC RDW Plt Count Lymph % (Auto) Eos % (Auto) Lymph # (Auto) Eos # (Auto) Seg Neutrophils % Seg Neuts % (Manual) Lymphocytes % (Manual) Seg Neutrophils # Seg Neutrophils # Man Lymphocytes # (Manual) Monocytes # (Manual) PT INR APTT Fibrinogen ABG pH POC ABG pCO2 POC ABG pO2 ABG pO2 ABG Base Excess ABG Hemoglobin 7.2 L ABG Oxyhemoglobin ABG Sodium 127.3 L ABG Potassium ABG Chloride 96.0 L ABG Glucose 98 H Carboxyhemoglobin Sodium Potassium Chloride Carbon Dioxide BUN Creatinine Glucose POC Glucose 106 H Lactic Acid Calcium Ionized Calcium Phosphorus Magnesium AST Alkaline Phosphatase Total Protein Albumin Triglycerides Arterial Blood Glucose 98 H Arterial Blood Ionized Calcium Urine WBC (Auto) Urine Creatinine Crossmatch 01/08/21 01/08/21 01/08/21 03:22 05:30 23:22 WBC RBC Hgb Hct MCV MCHC RDW Plt Count Lymph % (Auto) Eos % (Auto) Lymph # (Auto) Eos # (Auto) Seg Neutrophils % Seg Neuts % (Manual) Lymphocytes % (Manual) Seg Neutrophils # Seg Neutrophils # Man Lymphocytes # (Manual) Monocytes # (Manual) PT INR APTT Fibrinogen ABG pH POC ABG pCO2 POC ABG pO2 71.3 L ABG pO2 ABG Base Excess ABG Hemoglobin 8.7 L ABG Oxyhemoglobin 92.2 L ABG Sodium 125.9 L ABG Potassium ABG Chloride 96.0 L ABG Glucose 124 H Carboxyhemoglobin Sodium Potassium Chloride Carbon Dioxide BUN Creatinine Glucose POC Glucose 118 H 110 H Lactic Acid Calcium Ionized Calcium Phosphorus Magnesium AST Alkaline Phosphatase Total Protein Albumin Triglycerides Arterial Blood Glucose 124 H Arterial Blood Ionized Calcium Urine WBC (Auto) Urine Creatinine Crossmatch 01/08/21 01/08/21 01/09/21 Unknown Unknown 08:45 WBC 15.2 H RBC 2.62 L Hgb 7.6 L Hct 22.7 L MCV MCHC RDW 16.7 H Plt Count Lymph % (Auto) Eos % (Auto) Lymph # (Auto) Eos # (Auto) Seg Neutrophils % Seg Neuts % (Manual) 95.0 H Lymphocytes % (Manual) 3.0 L Seg Neutrophils # Seg Neutrophils # Man 14.4 H Lymphocytes # (Manual) 0.5 L Monocytes # (Manual) PT INR APTT Fibrinogen ABG pH POC ABG pCO2 POC ABG pO2 ABG pO2 ABG Base Excess ABG Hemoglobin ABG Oxyhemoglobin ABG Sodium ABG Potassium ABG Chloride ABG Glucose Carboxyhemoglobin Sodium 129 L 129 L Potassium Chloride 91.2 L 92.7 L Carbon Dioxide 21 L 19 L BUN 91 H 105 H Creatinine 4.0 H 4.4 H Glucose 115 H 107 H POC Glucose Lactic Acid Calcium Ionized Calcium Phosphorus 5.00 H Magnesium AST Alkaline Phosphatase Total Protein 5.3 L Albumin 1.6 L Triglycerides 166 H Arterial Blood Glucose Arterial Blood Ionized Calcium Urine WBC (Auto) Urine Creatinine Crossmatch 01/09/21 01/09/21 01/10/21 10:10 23:51 04:00 WBC 14.1 H RBC 2.50 L Hgb 7.2 L Hct 21.6 L MCV MCHC RDW 16.5 H Plt Count Lymph % (Auto) Eos % (Auto) Lymph # (Auto) Eos # (Auto) Seg Neutrophils % Seg Neuts % (Manual) 92.0 H Lymphocytes % (Manual) 2.0 L Seg Neutrophils # Seg Neutrophils # Man 13.0 H Lymphocytes # (Manual) 0.3 L Monocytes # (Manual) PT INR APTT Fibrinogen ABG pH 7.273 L POC ABG pCO2 POC ABG pO2 ABG pO2 ABG Base Excess ABG Hemoglobin 8.7 L ABG Oxyhemoglobin ABG Sodium 126.2 L ABG Potassium 4.8 H ABG Chloride 96.0 L ABG Glucose 160 H Carboxyhemoglobin Sodium Potassium Chloride Carbon Dioxide BUN Creatinine Glucose POC Glucose 154 H Lactic Acid Calcium Ionized Calcium Phosphorus Magnesium AST Alkaline Phosphatase Total Protein Albumin Triglycerides Arterial Blood Glucose 160 H Arterial Blood Ionized Calcium Urine WBC (Auto) Urine Creatinine Crossmatch 01/10/21 01/10/21 01/10/21 04:01 04:01 04:01 WBC 12.6 H RBC 2.89 L Hgb 8.1 L Hct 24.9 L MCV MCHC RDW 16.6 H Plt Count Lymph % (Auto) Eos % (Auto) Lymph # (Auto) Eos # (Auto) Seg Neutrophils % Seg Neuts % (Manual) 95.0 H Lymphocytes % (Manual) 3.0 L Seg Neutrophils # Seg Neutrophils # Man 12.0 H Lymphocytes # (Manual) 0.4 L Monocytes # (Manual) PT 15.4 H INR 1.17 H APTT 40.2 H Fibrinogen 817 H ABG pH POC ABG pCO2 POC ABG pO2 ABG pO2 ABG Base Excess ABG Hemoglobin ABG Oxyhemoglobin ABG Sodium ABG Potassium ABG Chloride ABG Glucose Carboxyhemoglobin Sodium 128 L Potassium Chloride 90.4 L Carbon Dioxide 19 L BUN 113 H Creatinine 4.5 H Glucose 162 H POC Glucose Lactic Acid Calcium Ionized Calcium Phosphorus 5.70 H Magnesium AST Alkaline Phosphatase Total Protein 6.2 L Albumin 2.1 L Triglycerides Arterial Blood Glucose Arterial Blood Ionized Calcium Urine WBC (Auto) Urine Creatinine Crossmatch 01/10/21 01/10/21 01/11/21 05:31 11:45 04:00 WBC RBC Hgb Hct MCV MCHC RDW Plt Count Lymph % (Auto) Eos % (Auto) Lymph # (Auto) Eos # (Auto) Seg Neutrophils % Seg Neuts % (Manual) Lymphocytes % (Manual) Seg Neutrophils # Seg Neutrophils # Man Lymphocytes # (Manual) Monocytes # (Manual) PT INR APTT Fibrinogen ABG pH 7.311 L POC ABG pCO2 49.2 H POC ABG pO2 ABG pO2 ABG Base Excess ABG Hemoglobin 9.4 L ABG Oxyhemoglobin ABG Sodium 130.3 L ABG Potassium ABG Chloride 96.0 L ABG Glucose 104 H Carboxyhemoglobin Sodium Potassium Chloride Carbon Dioxide BUN Creatinine Glucose POC Glucose 150 H 145 H Lactic Acid Calcium Ionized Calcium Phosphorus Magnesium AST Alkaline Phosphatase Total Protein Albumin Triglycerides Arterial Blood Glucose 104 H Arterial Blood Ionized Calcium Urine WBC (Auto) Urine Creatinine Crossmatch 01/11/21 01/11/21 01/12/21 04:45 17:29 05:51 WBC RBC Hgb Hct MCV MCHC RDW Plt Count Lymph % (Auto) Eos % (Auto) Lymph # (Auto) Eos # (Auto) Seg Neutrophils % Seg Neuts % (Manual) Lymphocytes % (Manual) Seg Neutrophils # Seg Neutrophils # Man Lymphocytes # (Manual) Monocytes # (Manual) PT INR APTT Fibrinogen ABG pH POC ABG pCO2 POC ABG pO2 ABG pO2 ABG Base Excess ABG Hemoglobin ABG Oxyhemoglobin ABG Sodium ABG Potassium ABG Chloride ABG Glucose Carboxyhemoglobin Sodium 134 L Potassium 3.5 L D Chloride 95.5 L Carbon Dioxide BUN 88 H Creatinine 3.5 H Glucose 103 H POC Glucose 109 H 114 H Lactic Acid Calcium Ionized Calcium Phosphorus Magnesium AST Alkaline Phosphatase Total Protein Albumin Triglycerides Arterial Blood Glucose Arterial Blood Ionized Calcium Urine WBC (Auto) Urine Creatinine Crossmatch 01/12/21 01/12/21 01/12/21 10:00 10:00 11:56 WBC RBC Hgb Hct MCV MCHC RDW Plt Count Lymph % (Auto) Eos % (Auto) Lymph # (Auto) Eos # (Auto) Seg Neutrophils % Seg Neuts % (Manual) Lymphocytes % (Manual) Seg Neutrophils # Seg Neutrophils # Man Lymphocytes # (Manual) Monocytes # (Manual) PT INR APTT Fibrinogen ABG pH POC ABG pCO2 POC ABG pO2 ABG pO2 ABG Base Excess ABG Hemoglobin ABG Oxyhemoglobin ABG Sodium ABG Potassium ABG Chloride ABG Glucose Carboxyhemoglobin Sodium 136 L Potassium Chloride 95.2 L Carbon Dioxide BUN 102 H Creatinine 3.6 H Glucose 106 H POC Glucose 113 H Lactic Acid Calcium Ionized Calcium Phosphorus 4.90 H Magnesium AST Alkaline Phosphatase Total Protein Albumin Triglycerides 153 H Arterial Blood Glucose Arterial Blood Ionized Calcium Urine WBC (Auto) Urine Creatinine Crossmatch 01/12/21 01/12/21 01/13/21 17:43 23:31 03:14 WBC RBC Hgb Hct MCV MCHC RDW Plt Count Lymph % (Auto) Eos % (Auto) Lymph # (Auto) Eos # (Auto) Seg Neutrophils % Seg Neuts % (Manual) Lymphocytes % (Manual) Seg Neutrophils # Seg Neutrophils # Man Lymphocytes # (Manual) Monocytes # (Manual) PT INR APTT Fibrinogen ABG pH 7.484 H POC ABG pCO2 POC ABG pO2 ABG pO2 ABG Base Excess ABG Hemoglobin 8.4 L ABG Oxyhemoglobin ABG Sodium 134.4 L ABG Potassium 3.1 L ABG Chloride ABG Glucose 117 H Carboxyhemoglobin Sodium Potassium Chloride Carbon Dioxide BUN Creatinine Glucose POC Glucose 113 H 108 H Lactic Acid Calcium Ionized Calcium Phosphorus Magnesium AST Alkaline Phosphatase Total Protein Albumin Triglycerides Arterial Blood Glucose 117 H Arterial Blood Ionized Calcium 4.5 L Urine WBC (Auto) Urine Creatinine Crossmatch 01/13/21 01/13/21 01/13/21 04:56 05:00 05:00 WBC RBC 2.87 L Hgb 8.0 L Hct 24.4 L MCV MCHC RDW 17.2 H Plt Count Lymph % (Auto) Eos % (Auto) Lymph # (Auto) Eos # (Auto) Seg Neutrophils % Seg Neuts % (Manual) Lymphocytes % (Manual) Seg Neutrophils # Seg Neutrophils # Man Lymphocytes # (Manual) Monocytes # (Manual) PT INR APTT Fibrinogen ABG pH POC ABG pCO2 POC ABG pO2 ABG pO2 ABG Base Excess ABG Hemoglobin ABG Oxyhemoglobin ABG Sodium ABG Potassium ABG Chloride ABG Glucose Carboxyhemoglobin Sodium Potassium 3.0 L Chloride 97.6 L Carbon Dioxide BUN 69 H Creatinine 2.9 H Glucose 114 H POC Glucose 110 H Lactic Acid Calcium 8.0 L Ionized Calcium Phosphorus Magnesium AST Alkaline Phosphatase Total Protein Albumin Triglycerides Arterial Blood Glucose Arterial Blood Ionized Calcium Urine WBC (Auto) Urine Creatinine Crossmatch 01/13/21 01/14/21 01/14/21 12:09 05:00 05:00 WBC 12.4 H RBC 2.72 L Hgb 7.7 L Hct 23.3 L MCV MCHC RDW 17.3 H Plt Count Lymph % (Auto) 6.5 L Eos % (Auto) 7.7 H Lymph # (Auto) 0.8 L Eos # (Auto) 1.0 H Seg Neutrophils % 82.7 H Seg Neuts % (Manual) Lymphocytes % (Manual) Seg Neutrophils # 10.2 H Seg Neutrophils # Man Lymphocytes # (Manual) Monocytes # (Manual) PT INR APTT Fibrinogen ABG pH POC ABG pCO2 POC ABG pO2 ABG pO2 ABG Base Excess ABG Hemoglobin ABG Oxyhemoglobin ABG Sodium ABG Potassium ABG Chloride ABG Glucose Carboxyhemoglobin Sodium Potassium 3.2 L Chloride Carbon Dioxide BUN 79 H Creatinine 3.1 H Glucose POC Glucose 111 H Lactic Acid Calcium Ionized Calcium Phosphorus Magnesium AST Alkaline Phosphatase Total Protein Albumin Triglycerides Arterial Blood Glucose Arterial Blood Ionized Calcium Urine WBC (Auto) Urine Creatinine Crossmatch 01/16/21 01/16/21 01/16/21 04:30 04:30 16:00 WBC RBC 2.62 L Hgb 7.6 L Hct 22.6 L MCV MCHC RDW 17.3 H Plt Count Lymph % (Auto) Eos % (Auto) Lymph # (Auto) Eos # (Auto) Seg Neutrophils % Seg Neuts % (Manual) Lymphocytes % (Manual) Seg Neutrophils # Seg Neutrophils # Man Lymphocytes # (Manual) Monocytes # (Manual) PT INR APTT Fibrinogen ABG pH POC ABG pCO2 POC ABG pO2 ABG pO2 ABG Base Excess ABG Hemoglobin ABG Oxyhemoglobin ABG Sodium ABG Potassium ABG Chloride ABG Glucose Carboxyhemoglobin Sodium 146 H Potassium 2.9 L* 3.0 L Chloride Carbon Dioxide BUN 58 H Creatinine 2.4 H Glucose 101 H POC Glucose Lactic Acid Calcium Ionized Calcium Phosphorus Magnesium AST Alkaline Phosphatase Total Protein Albumin 2.1 L Triglycerides Arterial Blood Glucose Arterial Blood Ionized Calcium Urine WBC (Auto) Urine Creatinine Crossmatch 01/16/21 01/17/21 01/17/21 Unknown 04:30 04:30 WBC RBC 2.80 L Hgb 7.9 L Hct 24.1 L MCV MCHC RDW 17.1 H Plt Count Lymph % (Auto) Eos % (Auto) Lymph # (Auto) Eos # (Auto) Seg Neutrophils % Seg Neuts % (Manual) Lymphocytes % (Manual) Seg Neutrophils # Seg Neutrophils # Man Lymphocytes # (Manual) Monocytes # (Manual) PT INR APTT Fibrinogen ABG pH POC ABG pCO2 POC ABG pO2 ABG pO2 ABG Base Excess ABG Hemoglobin ABG Oxyhemoglobin ABG Sodium ABG Potassium ABG Chloride ABG Glucose Carboxyhemoglobin Sodium 151 H Potassium 2.8 L* Chloride 108.0 H Carbon Dioxide BUN 58 H Creatinine 2.2 H Glucose 103 H POC Glucose Lactic Acid Calcium 8.0 L Ionized Calcium Phosphorus Magnesium 1.40 L AST Alkaline Phosphatase Total Protein Albumin Triglycerides 216 H Arterial Blood Glucose Arterial Blood Ionized Calcium Urine WBC (Auto) > 182.0 H Urine Creatinine Crossmatch 01/17/21 01/17/21 01/18/21 11:24 23:00 04:15 WBC RBC Hgb Hct MCV MCHC RDW Plt Count Lymph % (Auto) Eos % (Auto) Lymph # (Auto) Eos # (Auto) Seg Neutrophils % Seg Neuts % (Manual) Lymphocytes % (Manual) Seg Neutrophils # Seg Neutrophils # Man Lymphocytes # (Manual) Monocytes # (Manual) PT INR APTT Fibrinogen ABG pH POC ABG pCO2 POC ABG pO2 ABG pO2 ABG Base Excess ABG Hemoglobin ABG Oxyhemoglobin ABG Sodium ABG Potassium ABG Chloride ABG Glucose Carboxyhemoglobin Sodium 153 H Potassium 3.3 L 3.3 L Chloride 113.1 H Carbon Dioxide BUN 55 H Creatinine 1.9 H Glucose POC Glucose 110 H Lactic Acid Calcium 7.4 L Ionized Calcium Phosphorus Magnesium AST Alkaline Phosphatase Total Protein Albumin Triglycerides Arterial Blood Glucose Arterial Blood Ionized Calcium Urine WBC (Auto) Urine Creatinine Crossmatch
[2021-01-18] MEDS: POTASSIUM CHLORIDE 20 MEQ PACKET FEEDTUBE SCH ×2 (09:25→12:15)
[2021-01-18] MEDS: FAMOTIDINE 20 MG TAB PO SCH ×2 (09:26→21:26)
--- NOTE | 2021-01-18 09:48 | Progress Note ---
Assessment and Plan Assessment and plan: Assessment and plan: This is a 60-year-old male with obesity, hypertension, nicotine dependence, PVD s/p stent placement on dual antiplatelet therapy, hyperlipidemia, OA, GERD, ventral hernia and small bowel obstruction who was admitted with small bowel obstruction and peritonitis Neuro Postoperative pain; hx OA; hx acute abd pain; hx narcotic use at home due to a/c pain; hx med non adherence -IV PRN pain meds -avoid oversedation as they will inhibit his SBT -on propofol at 20 needs to be to 5 for LTAC per case management -on dex 1.5 for sedation -ideally we could wean prop and dex off- but pt becomes agitated and pulls at tubes and lines -remains in soft wrist restraints and mittens -nodding appropriately -following commands -high risk delirium Discharge planning per case consultant impending LTAC evaluation and placement CV on no pressors SR Hypertension -resume home meds for bp when appropriate -metop PRN hx CAD with stent -resume home asa and plavix when appropriate; was also on pletal hx Hyperlipidemia -resume home statin when appropriate Resp Post op hypoxic respiratory failure -intubated 12/20 -remains intubated -consider trach -daily sedation holiday -vent weaning and conditioning to PS as tolerated; daily per RT -ABG in AM Nicotine dependence -Smoking cessation counseling when appropriate GI Small bowel obstruction with peritonitis, incarcerated Ventral hernia s/p repair -12/20 CT abdomen/pelvis showed high-grade small bowel obstruction related to severe complex ventral abdominal wall hernias, progressed in appearance from prior exam from 09/12/2020 without evidence of pneumonitis or pneumoperitoneum, patchy bibasilar airspace disease concern for atypical infectious process/pneumonitis -12/20 s/p ex lap, extensive lysis of adhesions, small bowel resection (removal of 70 cm necrotic small bowel segment), peritoneal lavage and ABThera abdominal wound VAC placement -12/23 s/p abdominal exploration, small bowel resection, peritoneal lavage, ABThera wound VAC placement -12/26 s/p ex lap, small bowel resection, peritoneal lavage, ABThera wound VAC placement -12/29 s/p ex lap, small bowel resection, small bowel anastomosis and ABThera wound VAC placement -01/01 s/p myocutaneous flap creation, abdominal wall component separation and placement of phasix mesh with surgery yesterday where his abdomen was closed and 2 LAURA drains were placed on either side of his midline between fascia and subcu tissue. -12/30 initiated on HD by nephro -01/09 CT abdomen/pelvis with contrast shows large organized virtually bland appearing fluid collection along the anterior abdomen measuring up to 29 cm in the craniocaudal dimension and 2.6 cm in transverse dimension which may reflect postoperative seroma or hematoma, no associated gas to suggest superimposed infection, no contrast is seen within the collection to suggest bowel perforation -01/09 CT chest with contrast shows CHF with small left and trace right pleural effusions and diffuse groundglass opacities in airspace consolidation consistent with pulmonary edema (superimposed multifocal pneumonia is not excluded), diffuse anasarca likely related to third spacing of fluid. Midline abdominal incision -Ulceration to midline abdominal incision with purulent drainage -01/17 wound culture sent with primary growth of gram-negative rods -WOCN consulted, appreciate recommendations -Wound care per nursing -Dr Tena aware of wound status- appreciate her recommendations for LTAC with regard to follow up, wound care etc Discussed with Dr Tena Protein calorie malnutrition -S/p TPN- discontinued as he is tolerating TF -dobhoff replaced this AM- KUB ordered -Tube feedings per nutrition recs hx GERD -continue PPI diarrhea -appears to be TF diarrhea -dulcolox d/c today -fiber added to diet to bulk -BMS in place- remove steffen -consider cdiff- will discuss with ID Acute Kidney Injury, due to ATN improving -12/23 fracture excretion of sodium calculated at 0.16 secondary prerenal state -nephrology following -HD d/c given renal recovery -Strict intake and output -Daily weights -Trend Cr -polyuria Hypernatremia -Hypotonic IV fluid with potassium per nephrology -Trend sodium -FWF for Na Hypokalemia -Trend potassium -Replete as necessary Hypomagnesemia- resolved Metabolic Acidosis, Gap- improving ABG in AM Hypoalbuminemia Hypocalcemia -replaced as needed -AM labs ordered Heme Anemia -Transfuse for hemoglobin less than 7 -01/09 stool occult positive -GI aware -Trend Hgb -no bleeding on exam (stools taylor in color) VTE prophylaxis -cont SCD and ASCENCION ID Septic Shock on admit; peritonitis; leukocytosis: bacteremia/wound/UTI -ID following -Antibiotic therapy per ID -changed to dawna today -cultures pending -infectious etiology v ? drug fever -vascath dc today; haley changed out today -12/20 tracheal aspirate with mucus species which does not to be treated per ID -12/20 blood cultures x2 with no growth, urine culture with usual skin giorgio -01/16 blood cultures x2 with gram-negative jose enrique, abdominal wound culture with 2 species of gram-negative rods -COVID-19 neg on admit -trend temp and WBC curve -wound care per WOCN and nursing Endo hx Obesity Hyperglycemia -SSI PRN -avoid hypoglycemia GI/DVT prophylaxis: PPI, SCDs and SQH Disposition: ICU Lines: PICC placed 01/05, Haley catheter The high probability of a clinically significant, sudden or life threatening deterioration of the [multi] system(s) required my full and direct attention, intervention and personal management. The aggregate critical care time was [35] minutes. This time is in addition to time spent performing reported procedures but includes the following: [x] Data Review and interpretation [x] Patient assessment and monitoring of vital signs [x] Documentation [x] Medication orders and management Disposition Plan: Pending LTAC Total Time Spent with Patient (Minutes): 60 History Interval history: Pt remains intubated. Nodding and following commands. No acute events overnight Dr Cherry has had conversation with [employer] co. and pt has been cleared for LTAC HPI This is a 60-year-old male with obesity, hypertension, nicotine dependence, PVD s/p stent placement on dual antiplatelet therapy, hyperlipidemia, OA, GERD, ventral hernia with SBO who presents to the emergency department on 12/20 with severe, diffuse, worsened with movement, slightly relieved with rest abdominal pain rated at 10/10 with decreased oral intake, nausea and multiple episodes of vomiting. Patient underwent a CT of his abdomen/pelvis and was found to have evidence of small bowel obstruction as well as clinical findings consistent with acute peritonitis. 12/20: Patient was admitted to the hospital service with acute peritonitis and incarcerated ventral hernia with consults to [facility] and surgery. 12/21: Patient is status post ex lap, extensive lysis of adhesions, small bowel resection, peritoneal lavage and ABThera abdominal wound VAC placement by Dr. Tena and Dr. Brumfield on 12/20 with removal of a 70 cm segment of necrotic small bowel. Patient was intubated and sedated on propofol 10/ fent 4 at the time of my examination on Assist-control, rate of 24, PEEP of 6, tidal volume of 550 and FiO2 35%. Patient needed to be deeply sedated and there was a became hypotensive. Patient was started on patient for support with Levophed and received bolus of IVF. 12/22: Patient was febrile to 103 and vancomycin and Diflucan were added by [facility] and infectious disease was consulted and they increased Zosyn and stop vancomycin. Patient was given additional 1 L bolus today for CVP goal of 10-12. At the time of examination patient was on Levophed, propofol and fentanyl CMV tidal volume 500, rate of 24, PEEP of 6 and FiO2 65%. Plan for OR tomorrow 12/23: Patient Cr/BUN noted to be increased and nephrology was consulted. ID decreased the zosyn dose d/r renal function. Urine studies ordered. [place] placed today. LR boluses per [facility], TPN to be started. Fractional excretion of sodium calculated at 0.16 indicating prerenal state 12/24: Patient is status post abdominal exploration, small bowel resection of 4 to 5 cm segment of dusky small bowel, peritoneal lavage and ABThera wound VAC pl acement on 12/23 with surgery, leukocytosis and renal function is improving, worsening hypernatremia and hyperchloremia. Patient will be started on TPN today. We will place on SSI/Accu-Cheks every every 6 hours. Patient noted to be nearly maxed on Levophed and vasopressin was ordered. Remains sedated and on MV 12/25: Leukocytosis continues to improve, given Ca Gluconate today, Hypernatremia, Cr and hyperchorlemia slightly worsened today. Patient is sedated with propofol and fentanyl on CMV TV 500, Rate 24, Peep 6, FiO2 50%. He remains on levophed. Possible OR Saturday. 12/26 Patient presented with small bowel obstruction, is status post ex lap, extensive lysis of adhesions, small bowel resection, peritoneal lavage and ABThera abdominal wound VAC placement by Dr. Tena and Dr. Brumfield on 12/20 with removal of a 70 cm segment of necrotic small bowel. Was taken back to OR on 12/23 s/p Abdominal exploration, Small bowel resection, Peritoneal lavage, ABThera wound VAC placement. he is still having fever. Poss going to OR again today. Sepsis managed by ID. He is on Diflucan, Zosyn. He is on Levophed. 6/8 s/p ex lap, extensive lysis of adhesions, small bowel resection (removal of 70 cm necrotic small bowel segment), peritoneal lavage and ABThera abdominal wound VAC placement. Still having fever Still on vent 6/: Patient is orally intubated with AC mode ventilation rate 24, tidal volume 500, FiO2 75% and PEEP of 6. POD#8 s/p ex lap and small bowel resection for necrotic bowel secondary to incarcerated ventral hernia left with open abdomen. POD#5 s/p abdominal exploration with segmental small bowel resection. abthera placement POD#2 s/p abdominal exploration, small bowel resection for ischemia, abthera placement -CCM, surgery, infectious disease, nephrology consulted, appreciate recommendations -IV abx per ID: Zosyn, fluconazole -NGT to LIWS -NPO for now, TPN -SSI, Accucheck q6 -Vasopressor support with levophed -On mechanical ventilation, wean as tolerated, VAP bundle -Sedated with propofol and analgesia with fentanyl drip -Trend CBC, BMP, Mg, Phos -GI/DVT prophylaxis: PPI, SCDs to bilateral lower extremities while in bed, avoid chemical anticoagulation to cleared by surgery 12/29: Patient underwent abdominal exploration, small bowel resection, small bowel anastomosis and ABThera wound VAC placement this a.m. Patient remains on AC mode ventilation with a rate of 24, tidal volume 500, FiO2 65% and PEEP of 6. Continue antibiotics per ID recommendations. Continue vasopressor support as needed. Continue TPN for nutritional support. 12/30: Patient currently with AC mode ventilation rate of 24, tidal volume 500, FiO2 60% and PEEP of 6. Patient underwent further surgery yesterday with another abdominal exploration, small bowel resection, small bowel anastomosis and replacement of the ABThera wound VAC. Patient continues to require vasopressor support with vasopressin and Levophed. Continue TPN for nutrition. Continue propofol and fentanyl for sedation. Continue Zosyn per ID recommendations. INITIATED ON HD PER NEPHRO 612: Patient currently with AC mode ventilation rate of 24, tidal volume 500, FiO2 50% and PEEP of 6. POD#12 s/p ex lap and small bowel resection for necrotic bowel secondary to incarcerated ventral hernia left with open abdomen. POD#9 s/p abdominal exploration with segmental small bowel resection. abthera placement POD#3 s/p abdominal exploration, small bowel resection for ischemia, abthera placement POD#2 s/p abdominal exploration with small bowel anastamosis and abthera vac placement Continue hemodialysis per nephrology recommendations. Surgery plans for abdominal washout and bowel examination on Saturday. If anastamosis looks viable and no other issues, surgery plans to close his abdomen. 01/01: Continue current ventilator settings per pulmonary monitor ABG. Continue antibiotics per ID recommendations. Surgery plans for abdominal washout and bowel examination. If anastamosis looks viable and no other issues, surgery plans to close his abdomen. Wean pressors to maintain MAP > 65. Continue TPN for nutritional support. Hemodialysis per nephrology recommendations. Prognosis remains guarded. 01/02: At the time my examination patient was only on vasopressin for vasopressor support, sedated on 30 mcg of propofol and 4 mcg of fentanyl. Patient was on CMV tidal volume 500, rate of 12, PEEP of 10 and 50% FiO2. Patient remains on TPN and with NG tube to low intermittent suction. Patient underwent a myocut aneous flap creation, abdominal wall component separation and placement of phasix mesh with surgery yesterday where his abdomen was closed and 2 LAURA drains were placed on either side of his midline between fascia and subcu tissue. Per infectious his antibiotics will continue until 5 days postop from a final surgery. Patient has increasing leukocytosis which are likely reactive to surgery and patient will have hemodialysis today for clearance and volume removal. Patient sedation and mechanical ventilation will be weaned for extubation. 01/03: Patient H/H is 6.2/18.5 and he is being transfused 2 units PRBC with hemodialysis today. Patient has slight hypokalemia but TPN has been adjusted to address potassium. Patient continues to have hyponatremia, hypochloremia and hyperphosphatemia closely improved. The time my examination patient sedated on fentanyl and propofol and LAURA drainage noted to be more serosanguineous. Patient was on assist control with TV 500, PEEP of 8, rate of 28 and FiO2 40%. Patient remains off vasopressor support. No acute overnight events reported 01/04: Patient sedated on propofol and fentanyl. RN reported bowel movement overnight. Precedex drip started. NG tube clamped and may start trickle tube feedings later if patient does not have high residuals. [facility] continues to wean ventilation as tolerated. On my exam patient is on CMV tidal volume 500 rate of 28, PEEP of 8 and 40% FiO2. Patient is having periods of agitation and FiO2 had to be increased for hypoxia. Mucor species in tracheal aspirate but ID believes this is colonization. 01/05: Patient is severely agitated and received multiple IV push fentanyl. Patient was ultimately started on propofol. He received hemodialysis today. Patient had approximately 400 mL of NG output overnight. NG tube continues to be on suction. Leukocytosis worsened today. 01/06: Patient is agitated despite fentanyl pushes and Dilaudid was ordered, patient noted to be anemic with a hemoglobin of 6.5 and will be transfused 1 unit PRBC today. Nephrology does not plan to dialyze him today and to keep him on Saturday, , Saturday schedule. No acute events reported overnight. Patient NG tube residuals continue to decrease and surgery has cleared for trickle tube feeds which has been communicated to dietitian. 01/07: This this morning H/H resulted at 6.7/20.1 after 1 unit PRBC 6.7/21.8. Patient's ABG today shows respiratory acidosis and vent settings have been changed by CCM. Patient should receive hemodialysis today as he is on Saturday schedule. Overnight RN reported 700 mL of NG tube output over 12 hours. We will hold off on trickle feeds and continue TPN. At the time of my examination patient was sedated on propofol, fentanyl, Precedex and on CMV tidal volume 550, rate of 10, PEEP of 8 and 35% FiO2. We will order coags and stool guaiac to further investigate anemia. -01/09 stool pos for guiac; CT Chest/abd/pelvis -01/10: Patient this morning with elevated BP, likely secondary to pain vs ?Hx of Htn, Hydralazine PRN ordered and added to the patient, will monitor. Continue pain control. Wound care management and vent weaning when ok with surgery and Pattern Drafter 01/12: Continue supportive care including pain control. Monitor for bowel movement. Continue off antibiotics per ID monitor. Grid Casting Machine Operator Helper following for HD. 01/13/21 patient is seen and examined. Patient is still on vent. Wean to extubate as per critical care. Patient is off antibiotic as per infectious disease. Status post dialysis catheter placed in the right IJ. HD as per nephrology. Continue current management. Recheck CBC BMP in the morning. 01/14/21 patient seen and examined. Patient is still on vent. Patient is agitated. We will try to wean the sedation. We will start metoprolol 5 mg p.o. every 8 hours as needed for blood pressure. Patient is off antibiotic as per infectious disease. Continue hemodialysis as per nephrology. Continue current management. Critical care follow-up. Prognosis is guarded. Recheck CBC BMP in the morning 01/15: Remains with guarded prognosis, no clear evidence of renal recovery, still on the vent. Monitor H/H and repeat CT A/P if downward trend. Replace K. 01/16: Patient is hypokalemic today at 2.9, patient's urinalysis reveals UTI and patient is already on cefepime, vancomycin and fluconazole per ID. Patient's urine output noted to be 7752-3656 mL over the past couple days. Nephrology requested to hold off removal of Haley catheter as the patient seems to be in the diuretic phase of ATN and will withhold dialysis for now and evaluate. At the time my examination patient is sedated on propofol and Precedex on CMV tidal line 500, rate of 24, PEEP of 6 and 30% FiO2. Patient was febrile last night with a T-max of 102.7. Patient was cultured overnight. Wound care consult for abd wound with purulent drainage, culture sent. 01/17: Patient is again hypokalemic and hypomagnesemic which was repleted with K- Phos and KCl overnight. Patient has hypernatremia. Nephrology has started the patient on hypotonic IVF with potassium. Right IJ Vas-Cath ordered to be removed. Patient's abdominal culture and blood cultures from 01/16 are growing gram-negative rods. The time my examination patient was on propofol and dexamethasone on assist control. T-max 102.7. ETT repositioned. 01/18 Discharge planning for LTAC. Hospitalist Physical - Constitutional Vitals: Temp Pulse Resp BP Pulse Ox 101.3 F H 89 27 H 149/84 100 01/18/21 07:00 01/18/21 08:40 01/18/21 06:00 01/18/21 08:40 01/18/21 08:40 General appearance: Present: no acute distress, obese - EENT Eyes: Present: PERRL, EOM intact ENT: hearing intact - Neck Neck: Present: supple, normal ROM - Respiratory Respiratory effort: normal Respiratory: bilateral: diminished - Cardiovascular Rhythm: regular Heart Sounds: Present: S1 & S2 - Extremities Extremities: no ischemia Extremity abnormal: edema Peripheral Pulses: within normal limits - Abdominal General gastrointestinal: soft, tender - Integumentary Integumentary: Present: clear, warm, dry - Psychiatric Psychiatric: other - Neurologic Neurologic: moves all extremities - Allied Health Allied health notes reviewed: nursing, RT, social work, case management HEART Score - HEART Score History: Slightly suspicious EKG: Normal Age: < 45 Risk factors: No known risk factors Troponin: Troponin T < 0.010 ng/mL (0.00-0.029) 12/20/20 13:58 Troponin: < normal limit HEART Score: 0 - Critical Actions Critical Actions: 0-3 pts:0.9-1.7%risk of adverse cardiac event.Candidate for discharge Results - Labs CBC & Chem 7: 01/18/21 10:37 01/18/21 04:15 Labs: Laboratory Last Values WBC 10.3 K/mm3 (4.5-11.0) 01/17/21 04:30 RBC 2.80 M/mm3 (3.65-5.03) L 01/17/21 04:30 Hgb 7.9 gm/dl (11.8-15.2) L 01/17/21 04:30 Hct 24.1 % (35.5-45.6) L 01/17/21 04:30 MCV 86 fl (84-94) 01/17/21 04:30 MCH 28 pg (28-32) 01/17/21 04:30 MCHC 33 % (32-34) 01/17/21 04:30 RDW 17.1 % (13.2-15.2) H 01/17/21 04:30 Plt Count 298 K/mm3 (140-440) 01/17/21 04:30 Lymph % (Auto) 6.5 % (13.4-35.0) L 01/14/21 05:00 [place] % (Auto) 2.5 % (0.0-7.3) 01/14/21 05:00 Eos % (Auto) 7.7 % (0.0-4.3) H 01/14/21 05:00 Baso % (Auto) 0.6 % (0.0-1.8) 01/14/21 05:00 Lymph # (Auto) 0.8 K/mm3 (1.2-5.4) L 01/14/21 05:00 [place] # (Auto) 0.3 K/mm3 (0.0-0.8) 01/14/21 05:00 Eos # (Auto) 1.0 K/mm3 (0.0-0.4) H 01/14/21 05:00 Baso # (Auto) 0.1 K/mm3 (0.0-0.1) 01/14/21 05:00 Add Manual Diff Complete 01/10/21 04:01 Total Counted 100 01/10/21 04:01 Seg Neutrophils % 82.7 % (40.0-70.0) H 01/14/21 05:00 Seg Neuts % (Manual) 95.0 % (40.0-70.0) H 01/10/21 04:01 Band Neutrophils % 2.0 % 01/10/21 04:01 Lymphocytes % (Manual) 3.0 % (13.4-35.0) L 01/10/21 04:01 Monocytes % (Manual) 1.0 % (0.0-7.3) 01/09/21 10:10 Metamyelocytes % 1.0 % 01/09/21 10:10 Myelocytes % 1.0 % 01/09/21 10:10 Nucleated RBC % Not Reportable 01/10/21 04:01 Seg Neutrophils # 10.2 K/mm3 (1.8-7.7) H 01/14/21 05:00 Seg Neutrophils # Man 12.0 K/mm3 (1.8-7.7) H 01/10/21 04:01 Band Neutrophils # 0.3 K/mm3 01/10/21 04:01 Lymphocytes # (Manual) 0.4 K/mm3 (1.2-5.4) L 01/10/21 04:01 Abs React Lymphs (Man) 0.0 K/mm3 01/10/21 04:01 Monocytes # (Manual) 0.0 K/mm3 (0.0-0.8) 01/10/21 04:01 Eosinophils # (Manual) 0.0 K/mm3 (0.0-0.4) 01/10/21 04:01 Basophils # (Manual) 0.0 K/mm3 (0.0-0.1) 01/10/21 04:01 Metamyelocytes # 0.0 K/mm3 01/10/21 04:01 Myelocytes # 0.0 K/mm3 01/10/21 04:01 Promyelocytes # 0.0 K/mm3 01/10/21 04:01 Blast Cells # 0.0 K/mm3 01/10/21 04:01 WBC Morphology Not Reportable 01/10/21 04:01 Hypersegmented Neuts Not Reportable 01/10/21 04:01 Hyposegmented Neuts Not Reportable 01/10/21 04:01 Hypogranular Neuts Not Reportable 01/10/21 04:01 Smudge Cells Not Reportable 01/10/21 04:01 Toxic Granulation Not Reportable 01/10/21 04:01 Toxic Vacuolation Not Reportable 01/10/21 04:01 Dohle Bodies Not Reportable 01/10/21 04:01 Pelger-Huet Anomaly Not Reportable 01/10/21 04:01 Mirian Rods Not Reportable 01/10/21 04:01 Platelet Estimate Consistent w auto 01/10/21 04:01 Clumped Platelets Not Reportable 01/10/21 04:01 Plt Clumps, EDTA Not Reportable 01/10/21 04:01 Large Platelets Not Reportable 01/10/21 04:01 Giant Platelets Not Reportable 01/10/21 04:01 Platelet Satelliting Not Reportable 01/10/21 04:01 Plt Morphology Comment Not Reportable 01/10/21 04:01 RBC Morphology Not Reportable 01/10/21 04:01 Dimorphic RBCs Not Reportable 01/10/21 04:01 Polychromasia Not Reportable 01/10/21 04:01 Hypochromasia Few 01/10/21 04:01 Poikilocytosis Not Reportable 01/10/21 04:01 Anisocytosis Few 01/10/21 04:01 Microcytosis Few 01/10/21 04:01 Macrocytosis Not Reportable 01/10/21 04:01 Spherocytes Not Reportable 01/10/21 04:01 Pappenheimer Bodies Not Reportable 01/10/21 04:01 Sickle Cells Not Reportable 01/10/21 04:01 Target Cells Not Reportable 01/10/21 04:01 Tear Drop Cells Not Reportable 01/10/21 04:01 Ovalocytes Not Reportable 01/10/21 04:01 Helmet Cells Not Reportable 01/10/21 04:01 [place] Bodies Not Reportable 01/10/21 04:01 [place] Rings Not Reportable 01/10/21 04:01 [place] Cells Not Reportable 01/10/21 04:01 Bite Cells Not Reportable 01/10/21 04:01 Crenated Cell Not Reportable 01/10/21 04:01 Elliptocytes Not Reportable 01/10/21 04:01 Acanthocytes (Spur) Not Reportable 01/10/21 04:01 Rouleaux Not Reportable 01/10/21 04:01 Hemoglobin C Crystals Not Reportable 01/10/21 04:01 Schistocytes Not Reportable 01/10/21 04:01 Malaria parasites Not Reportable 01/10/21 04:01 [place] Bodies Not Reportable 01/10/21 04:01 Hem Pathologist Commnt No 01/10/21 04:01 PT 15.4 Sec. (12.2-14.9) H 01/10/21 04:01 INR 1.17 (0.87-1.13) H 01/10/21 04:01 APTT 40.2 Sec. (24.2-36.6) H 01/10/21 04:01 Fibrinogen 817 mg/dl (211-480) H 01/10/21 04:01 ABG pH 7.484 (7.320-7.450) H 01/13/21 03:14 POC ABG pCO2 34.8 mmHg (32.0-48.0) 01/13/21 03:14 ABG pCO2 37.9 mm Hg 01/05/21 03:50 POC ABG pO2 104.0 mmHg (83-108) 01/13/21 03:14 ABG pO2 136.8 mm Hg (80.0-90.0) H 01/05/21 03:50 POC ABG HCO3 25.6 01/13/21 03:14 ABG HCO3 22.4 mmol/L (20.0-26.0) 01/05/21 03:50 ABG O2 Saturation 98.3 (0-100) 01/13/21 03:14 ABG O2 Content 9.8 (0.0-44) 01/05/21 03:50 POC ABG Base Excess 2.1 01/13/21 03:14 ABG Base Excess -2.3 mmol/L (-2.0-3.0) L 01/05/21 03:50 ABG Hemoglobin 8.4 (12.0-17.5) L 01/13/21 03:14 ABG Oxyhemoglobin 97.0 (94-98) 01/13/21 03:14 ABG Carboxyhemoglobin 1.5 % (0.0-5.0) 01/05/21 03:50 ABG Methemoglobin 0.3 (0.0-1.5) 01/13/21 03:14 ABG Sodium 134.4 mmol/L (136.0-145.0) L 01/13/21 03:14 ABG Potassium 3.1 mmol/L (3.40-4.50) L 01/13/21 03:14 ABG Chloride 99.0 mmol/L (98-107) 01/13/21 03:14 ABG Glucose 117 mg/dL (65-95) H 01/13/21 03:14 Oxyhemoglobin 96.7 % (95.0-99.0) 01/05/21 03:50 Carboxyhemoglobin 1.0 (0.5-1.5) 01/13/21 03:14 FiO2 50 % 01/05/21 03:50 FiO2 % 35.0 01/13/21 03:14 Sodium 153 mmol/L (137-145) H 01/18/21 04:15 Potassium 3.3 mmol/L (3.6-5.0) L 01/18/21 04:15 Chloride 113.1 mmol/L (98-107) H 01/18/21 04:15 Carbon Dioxide 26 mmol/L (22-30) 01/18/21 04:15 Anion Gap 17 mmol/L 01/18/21 04:15 BUN 55 mg/dL (9-20) H 01/18/21 04:15 Creatinine 1.9 mg/dL (0.8-1.3) H 01/18/21 04:15 Estimated GFR 36 ml/min 01/18/21 04:15 BUN/Creatinine Ratio 29 % 01/18/21 04:15 Glucose 100 mg/dL (75-100) 01/18/21 04:15 POC Glucose 95 mg/dL (70-105) 01/18/21 05:13 Lactic Acid 1.70 mmol/L (0.7-2.0) 12/20/20 16:20 Calcium 7.4 mg/dL (8.4-10.2) L 01/18/21 04:15 Ionized Calcium 3.3 mg/dL (4.8-5.6) L 12/27/20 14:40 Phosphorus 4.40 mg/dL (2.5-4.5) 01/17/21 04:30 Magnesium 1.40 mg/dL (1.7-2.3) L 01/17/21 04:30 Total Bilirubin 0.50 mg/dL (0.1-1.2) 01/16/21 04:30 AST 19 units/L (5-40) 01/16/21 04:30 ALT 18 units/L (7-56) 01/16/21 04:30 Alkaline Phosphatase 118 units/L (35-129) 01/16/21 04:30 Troponin T < 0.010 ng/mL (0.00-0.029) 12/20/20 13:58 Total Protein 6.4 g/dL (6.3-8.2) 01/16/21 04:30 Albumin 2.1 g/dL (3.9-5) L 01/16/21 04:30 Albumin/Globulin Ratio 0.5 % 01/16/21 04:30 Triglycerides 216 mg/dL (2-149) H 01/17/21 04:30 Arterial Blood Glucose 117 mg/dL (65-95) H 01/13/21 03:14 Arterial Blood Ionized Calcium 4.5 mg/dL (4.6-5.3) L 01/13/21 03:14 Urine Color Yellow (Yellow) 01/16/21 Unknown Urine Turbidity Turbid (Clear) 01/16/21 Unknown Urine pH 6.0 (5.0-7.0) 01/16/21 Unknown Ur Specific Ewing 1.010 (1.003-1.030) 01/16/21 Unknown Urine Protein 100 mg/dl mg/dL (Negative) 01/16/21 Unknown Urine Glucose (UA) Neg mg/dL (Negative) 01/16/21 Unknown Urine Ketones Neg mg/dL (Negative) 01/16/21 Unknown Urine Blood Mod (Negative) 01/16/21 Unknown Urine Nitrite Neg (Negative) 01/16/21 Unknown Urine Bilirubin Neg (Negative) 01/16/21 Unknown Urine Urobilinogen < 2.0 mg/dL (<2.0) 01/16/21 Unknown Ur Leukocyte Esterase Lg (Negative) 01/16/21 Unknown Urine WBC (Auto) > 182.0 /HPF (0.0-6.0) H 01/16/21 Unknown Urine RBC (Auto) 154.0 /HPF (0.0-6.0) 01/16/21 Unknown U Epithel Cells (Auto) < 1.0 /HPF (0-13.0) 12/20/20 Unknown Urine Bacteria (Auto) 4+ /HPF (Negative) 01/16/21 Unknown Urine WBC Clumps 3+ /HPF 01/16/21 Unknown Ur Renal Epithelial Cell 8 /LPF 01/16/21 Unknown Triple Phos Crystals 2+ 12/23/20 12:15 Hyaline Casts 11 /LPF 01/16/21 Unknown Urine Mucus Few /HPF 01/16/21 Unknown Urine Eosinophils None seen (None Seen) 12/23/20 12:15 Urine Creatinine 78.1 mg/dL (0.1-20.0) H 12/23/20 12:15 Urine Sodium 13 mmol/L 12/23/20 12:15 Fraction Sodium Excret 0.2 12/23/20 12:15 Random Vancomycin 5.8 ug/mL (0-40.0) 01/17/21 04:30 Coronavirus (PCR) Negative (Negative) 12/21/20 Unknown Hepatitis A IgM Ab Non-reactive (NonReactive) 12/30/20 14:40 Hep Bs Antigen Non-reactive (Negative) 12/30/20 14:40 Hep B Core IgM Ab Non-reactive (NonReactive) 12/30/20 14:40 Hepatitis C Antibody Non-reactive (NonReactive) 12/30/20 14:40 Blood Type A NEGATIVE 01/06/21 11:00 Antibody Screen Negative 01/06/21 11:00 Crossmatch See Detail 01/06/21 11:00 Microbiology: Microbiology 01/16/21 04:40 Peripheral/Venous Blood Culture - Preliminary Gram Negative Jose Enrique 01/16/21 15:24 Abdomen Wound Culture - Preliminary Gram Negative Jose Enrique Gram Negative Jose Enrique#2 01/16/21 04:50 Peripheral/Venous Blood Culture - Preliminary Gram Negative Jose Enrique - Imaging and Cardiology Chest x-ray: image reviewed (01-16 ETT high, repositioned per RT- xray ordered for AM) Haley/IV: Voiding Method Indwelling Catheter Active Medications - Current Medications Current Medications: Generic Name Dose Route Start Last Admin Trade Name Freq PRN Reason Stop Dose Admin Acetaminophen 650 mg 01/16/21 03:57 01/17/21 23:37 Acetaminophen 325 Mg/10.15 Ml Oral Liqd Unit Dose FEEDTUBE 650 mg Q6H PRN Administration Non Cardiac Pain or Temp>100.5 Lipase/Protease/Amylase 1 each 01/07/21 08:44 Lipase 10,500/Protease 25,000/Amylase 43,750 (Units) Dr Cap FEEDTUBE PRN PRN For Clogged Feeding Tube Bisacodyl 10 mg 12/30/20 11:00 01/18/21 09:25 Bisacodyl 10 Mg Rect Supp MI 10 mg QDAY ASCENCION Administration Dextrose 50 ml 12/24/20 10:49 Dextrose 50% In Water (25gm) 50 Ml Syringe IV Q30MIN PRN Hypoglycemia Protocol Famotidine 20 mg 01/17/21 10:00 01/18/21 09:26 Famotidine 20 Mg Tab PO 20 mg BID ASCENCION Administration Fentanyl 1 applic 01/11/21 14:00 01/17/21 10:41 Fentanyl 50 Mcg/Hr Patch 72hr TD 1 applic Q3D ASCENCION Administration Heparin Sodium (Porcine) 5,000 unit 01/06/21 14:00 01/18/21 06:12 Heparin 5,000 Unit/1 Ml Vial SUB-Q 5,000 unit Q8HR ASCENCION Administration Hydromorphone HCl 1 mg 01/11/21 14:00 01/18/21 09:25 Hydromorphone 1 Mg/1 Ml Inj IV 1 mg Q4HR ASCENCION Administration Hydromorphone HCl 0.5 mg 01/12/21 10:10 01/17/21 15:00 Hydromorphone 1 Mg/1 Ml Inj IV 0.5 mg Q4H PRN Administration Pain , Severe (7-10) Hydromorphone HCl 0.25 mg 01/12/21 10:11 01/15/21 15:40 Hydromorphone 1 Mg/1 Ml Inj IV 0.25 mg Q4H PRN Administration Pain, Moderate (4-6) Hydrophilic Ointment 1 applic 12/20/20 21:58 Lip Therapy Vaseline TP Q2HR PRN Dry Lips Propofol 1,000 mg in 100 mls @ 3.606 mls/hr 12/20/20 22:00 01/18/21 02:21 Diprivan 10 Mg/Ml IV 15 mcg/kg/min TITR ASCENCION 10.818 mls/hr Administration Protocol 5 MCG/KG/MIN Nicardipine HCl 50 mg/ Sodium 250 mls @ 25 mls/hr 01/11/21 09:00 01/15/21 04:32 Chloride IV 0 mg/hr TITR ASCENCION 0 mls/hr Titration Protocol 5 MG/HR Dexmedetomidine HCl 1,000 mcg/ 260 mls @ 7.322 mls/hr 01/15/21 01:00 01/18/21 04:52 Sodium Chloride IV 1.2 mcg/kg/hr TITRATE ASCENCION 43.93 mls/hr Administration Protocol 0.2 MCG/KG/HR Cefepime HCl 1 gm in 100 mls @ 200 mls/hr 01/16/21 12:00 01/17/21 13:18 Cefepime/Ns 1 Gm/100 Ml IV 200 mls/hr Q12H ASCENCION Administration Protocol Potassium Chloride/Sodium Chloride 20 meq in 1,000 mls @ 125 mls/hr 01/17/21 10:00 01/17/21 22:53 Ns 0.45/Kcl 20meq IV 100 mls/hr DIRECT ASCENCION Administration Insulin Human Regular 0 units 12/28/20 00:00 01/18/21 06:59 Insulin Regular, Human 100 Units/1 Ml SUB-Q Not Given Q6H ASCENCION Protocol Metoprolol Tartrate 5 mg 01/14/21 13:37 01/15/21 12:42 Metoprolol Tartrate 5 Mg/5 Ml Inj IV 5 mg Q6H PRN Administration SBP >/=160 Multi-Ingred Cream/Lotion/Oil/Oint 1 applic 12/20/20 21:58 01/03/21 01:13 Mineral Oil/Petrolatum, White Ophth Oint 3.5 Gm OU 1 applic Q4HR PRN Administration Dry Eye(s) Ondansetron HCl 4 mg 01/11/21 08:09 Ondansetron 4 Mg/2 Ml Inj IV Q8H PRN Nausea And Vomiting Potassium Chloride 40 meq 01/18/21 08:00 01/18/21 09:25 Potassium Chloride 20 Meq Packet FEEDTUBE 01/18/21 10:01 40 meq BID ASCENCION Administration Simple Syrup 15 ml 01/07/21 08:44 Simple Syrup 15 Ml FEEDTUBE PRN PRN Hypoglycemia Simple Syrup 30 ml 01/07/21 08:44 Simple Syrup 15 Ml FEEDTUBE PRN PRN Hypoglycemia Sodium Bicarbonate 325 mg 01/07/21 08:44 Sodium Bicarbonate 325 Mg Tab FEEDTUBE PRN PRN For Clogged Feeding Tube Sodium Chloride 10 ml 12/20/20 22:00 01/18/21 09:26 Sodium Chloride 0.9% 10 Ml Flush Syringe IV 10 ml BID ASCENCION Administration Sodium Chloride 10 ml 12/20/20 16:42 01/17/21 06:01 Sodium Chloride 0.9% 10 Ml Flush Syringe IV 10 ml PRN PRN Administration LINE FLUSH Nutrition/Malnutrition Assess - Dietary Evaluation Nutrition/Malnutrition Findings: Nutrition Notes Start: 12/21/20 09:06 Freq: Status: Active Protocol: Document 01/16/21 11:07 (Rec: 01/16/21 11:10 [email or web address]) Nutrition Notes Initial or Follow up Reassessment Current Diagnosis Acute Kidney Injury,Coronary Artery Disease,Sepsis, Hypertension,Small Bowel Obstruction,Hyperlipidemia Other Pertinent Diagnosis gangrenous small bowel, s/p small bowel ressection, peritonitis Current Diet Nepro 1.8 at 40 ml/hr Labs/Tests Na 146 K 2.9 BUN 58 Cr 2.4 Pertinent Medications Propofol at 10.818 ml/hr (285 kcal) Height 6 ft Weight 120.7 kg [place] Body Weight (kg) 80.90 BMI 36.1 Weight change and time frame weight change noted. Weight Status Obese Subjective/Other Information FU for TF tolerance. Observed Nepro 1.8 running at goal rate . RN state pt is tolerating. Percent of energy/protein needs met: 100%/57% Burn Absent Trauma Absent Current % PO Negligible Minimum of two criteria No #2 Nutrition Diagnosis Increased nutrient needs ( specify in comment below) Diagnosis Progress(for reassessment Continues documentation) #1 Nutrition Diagnosis Inadequate oral intake Diagnosis Progress(for reassessment Continues documentation) Is patient on ventilator? Yes Is Patient Ambulatory and/or Out of Bed No REE-(Brule-St. Jeor-confined to bed) 2476.212 Kcal/Kg value to use for calculation 14 Approximate Energy Requirements Using 1690 kcal/Kg Calculation Used for Recommendations Kcal/kg Additional Notes Pro needs >1.2g/kg adjBW: > 127g/day Fluid needs per MD. Nutrition Intervention Nutrition Support: Nepro 40 ml/hr is reached. Flush 175 ml q4h or per MD. Kcal 1,728 Protein (gm) 72 Fluid (mL) 779 Goal #1 TF tolerance Goal #2 Meet at least 75% of kcal and protein needs via TF Follow-Up By: 01/18/21 Additional Comments F/U for TF tolerance - Attestation Statement I have reviewed and agreed w/ Malnutrition eval & tx plan: Yes
[2021-01-18] MEDS: ACETAMINOPHEN 325 MG/10.15 ML ORAL LIQD UNIT DOSE FEEDTUBE PRN (11:04)
[2021-01-18 11:21] LABS: Hematocrit 22.7 % (35.5-45.6); Hemoglobin 7.8 gm/dl (11.8-15.2); Mean Corpuscular HGB Conc 34 % (32-34); Mean Corpuscular Volume 86 fl (84-94); Platelet Count 341 K/mm3 (140-440); Red Blood Count 2.64 M/mm3 (3.65-5.03); Red Cell Distribution Width 16.8 % (13.2-15.2)
--- NOTE | 2021-01-18 11:47 | Progress Note ---
Assessment and Plan Cultures: 12/20/2020 blood culture: No growth 12/20/2020 urine culture: Usual skin giorgio 12/20/2020 tracheal aspirate culture: Mucor 01/16/2021 blood culture: GNR 01/16/2021 abdominal wound culture: GNR x 2 A/P: 60-year-old male with obesity, hypertension, tobacco abuse, coronary artery disease, admitted to the hospital on 12/20/2020 with: #Fever, new sepsis secondary to GNR bacteremia: Source could be urine/line/a bdominal wound. UA with significant pyuria. #Initial septic shock: Resolved. Secondary to intra-abdominal source, peritonitis. Patient with necrotic bowel secondary to incarcerated ventral hernia. Status post exploratory laparotomy, extensive adhesiolysis, small bowel resection and peritoneal lavage along with ABThera VAC placement on 12/20/2020, replacement 12/29/2020. Off pressors. Last surgery abdomen closure with mesh 01/02/2021. Repeat CT 01/09/21 with large organized but bland appearing reactive fluid collection in anterior abdomen - seroma v/s hematoma. #JONI: Renally dose antibiotics. Was requiring hemodialysis, nephrology following. #Morbid obesity #Mucor in tracheal aspirate is likely colonization. No treatment needed currently. Recs: -Follow-up blood cultures, wound, urine cultures -persistent fever, prolonged admission, hence Cefepime switched to IV Meropenem -wound care for lower abdominal wound Lissette Rizzo MD, FACP [facility] ([facility] O: [phone] F: [phone] Subjective Date of service: 01/18/21 Principal diagnosis: SBO and necrosis of large part of small intestine Interval history: Persistent fever. Remains on the vent. Had Lawrence exchanged. VasCath also removed yesterday. Objective - Exam Narrative Exam: Physical Exam: Constitutional: sedated, intubated, on the vent Head, Ears, Nose: Normocephalic, atraumatic. External ears, nose normal Eyes: Conjunctivae/corneas clear. No icterus. No ptosis. Neck: intubated Oral: intubated Cardiovascular: S1, S2 + Respiratory: AE fair bilaterally and equal GI: midline dressing +, lower part with some slough, abdominal binder +, bowel sounds + drains + Musculoskeletal: scrotal edema Skin: No rash or abscess Hem/Lymphatic: No palpable cervical or supraclavicular nodes. No lymphangitis Psych: no agitation Neurological: sedated, intubated, on the vent, exam limited - Constitutional Vitals: Vital Signs Temp Pulse Resp BP Pulse Ox 101.3 F H 94 H 22 135/75 100 01/18/21 07:00 01/18/21 10:00 01/18/21 10:00 01/18/21 10:00 01/18/21 10:00 Temperature -Last 24 Hours Temperature 101.3 F Temperature 101.7 F Temperature 101.8 F Temperature 100.3 F Temperature 99.8 F Temperature 100 F - Labs CBC & Chem 7: 01/18/21 10:37 01/18/21 04:15 Labs: Abnormal lab results 01/17/21 01/18/21 01/18/21 Range/Units 23:00 04:15 10:37 RBC 2.64 L (3.65-5.03) M/mm3 Hgb 7.8 L (11.8-15.2) gm/dl Hct 22.7 L (35.5-45.6) % RDW 16.8 H (13.2-15.2) % Sodium 153 H (137-145) mmol/L Potassium 3.3 L 3.3 L (3.6-5.0) mmol/L Chloride 113.1 H (98-107) mmol/L BUN 55 H (9-20) mg/dL Creatinine 1.9 H (0.8-1.3) mg/dL Calcium 7.4 L (8.4-10.2) mg/dL
--- NOTE | 2021-01-18 12:05 | XRay Report ---
ABDOMEN 1 VIEW(S) INDICATION / CLINICAL INFORMATION: NGT Placement. COMPARISON: 12/20/2020 FINDINGS: TUBES / LINES: The nasogastric tube terminates just beyond the GE junction. Advancement by 5 to 10 cm is recommended. BOWEL GAS PATTERN: No significant abnormality. FREE AIR / EXTRALUMINAL GAS: None seen. ADDITIONAL FINDINGS: No significant additional findings. IMPRESSION: Recommend advancement of the nasogastric tube as described. Signer Name: Kyle Ramirez Jr, MD Signed: 01/18/2021 12:00 PM Workstation Name: [id number]
[2021-01-18] MEDS: NACL 0.45%/KCL 20 MEQ 20 MEQ/1,000 ML BAG IV SCH (13:02)
[2021-01-18] MEDS: MEROPENEM/NS 1 GRAM/100 ML 1 GRAM/100 ML BAG IV SCH (13:27)
[2021-01-18] MEDS ORDERED: POTASSIUM CHLORIDE 20 MEQ PACKET FEEDTUBE STA (14:10)
--- NOTE | 2021-01-18 14:58 | Progress Note ---
Assessment and Plan POD#30 s/p ex lap and small bowel resection for necrotic bowel secondary to incarcerated ventral hernia left with open abdomen. POD#27 s/p abdominal exploration with segmental small bowel resection. abthera placement POD#24 s/p abdominal exploration, small bowel resection for ischemia, abthera placement POD#21 s/p abdominal exploration with small bowel anastamosis and abthera vac placement POD#17 s/p abdomen closure with mesh Febrile but stable. Unclear etiology of fevers. Renal failure resolving no longer needing dialysis. Respiratory insufficiency, wean to extubation per compensator Anemia likely due to illness and procedural losses. No clinical signs of identifiable active bleeding. Spoke with interventional radiology who reviewed CAT scan who feels that the fluid collection is likely reactive and likely will absorb on its own. Pseudomonas growing in wound, awaiting for species identification and blood culture. Continue antibiotics per ID. Continue supportive care. Pt was accepted by [facility]. Prognosis is guarded. Subjective Date of service: 01/18/21 Narrative: No acute events overnight. Patient had several febrile episodes. Patient cont inues to be more alert on the ventilator. Patient's Vas-Cath was removed. Patient grew Pseudomonas from his wound and has gram-negative rods in blood cultures. Objective Vital Signs - 12hr 01/18/21 01/18/21 01/18/21 03:00 03:15 03:30 Temperature Pulse Rate 85 83 87 Respiratory 25 H 24 22 Rate Blood Pressure 126/64 126/64 116/62 O2 Sat by Pulse 100 100 100 Oximetry 01/18/21 01/18/21 01/18/21 03:32 03:45 04:00 Temperature 101.7 F H Pulse Rate 85 90 Respiratory 27 H 31 H Rate Blood Pressure 120/63 124/66 O2 Sat by Pulse 100 100 Oximetry 01/18/21 01/18/21 01/18/21 04:15 04:20 04:30 Temperature Pulse Rate 96 H 103 H 100 H Respiratory 33 H 29 H Rate Blood Pressure 124/66 136/79 129/75 O2 Sat by Pulse 100 100 100 Oximetry 01/18/21 01/18/21 01/18/21 04:45 05:01 05:15 Temperature Pulse Rate 108 H 103 H 100 H Respiratory 27 H 53 H 43 H Rate Blood Pressure 129/75 152/84 134/71 O2 Sat by Pulse 100 100 100 Oximetry 01/18/21 01/18/21 01/18/21 05:30 05:45 06:00 Temperature Pulse Rate 101 H 95 H 93 H Respiratory 36 H 28 H 27 H Rate Blood Pressure 148/83 146/81 141/81 O2 Sat by Pulse 100 100 100 Oximetry 01/18/21 01/18/21 01/18/21 06:15 06:30 06:45 Temperature Pulse Rate 88 96 H 93 H Respiratory 30 H 30 H 23 Rate Blood Pressure 128/58 144/77 151/74 O2 Sat by Pulse 100 100 100 Oximetry 01/18/21 01/18/21 01/18/21 07:00 07:15 07:31 Temperature 101.3 F H Pulse Rate 96 H 87 93 H Respiratory 21 22 20 Rate Blood Pressure 142/85 141/67 150/74 O2 Sat by Pulse 100 100 100 Oximetry 01/18/21 01/18/21 01/18/21 07:45 08:00 08:15 Temperature Pulse Rate 85 85 85 Respiratory 24 26 H 30 H Rate Blood Pressure 150/74 106/52 122/64 O2 Sat by Pulse 100 100 100 Oximetry 01/18/21 01/18/21 01/18/21 08:30 08:40 08:45 Temperature Pulse Rate 91 H 89 89 Respiratory 32 H 47 H Rate Blood Pressure 149/84 149/84 140/64 O2 Sat by Pulse 100 100 100 Oximetry 01/18/21 01/18/21 01/18/21 09:00 09:15 09:30 Temperature Pulse Rate 90 90 93 H Respiratory 42 H 26 H 25 H Rate Blood Pressure 148/61 150/75 146/85 O2 Sat by Pulse 100 100 100 Oximetry 01/18/21 01/18/21 01/18/21 09:45 10:00 10:15 Temperature Pulse Rate 97 H 94 H 96 H Respiratory 20 22 29 H Rate Blood Pressure 150/78 135/75 151/79 O2 Sat by Pulse 100 100 100 Oximetry 01/18/21 01/18/21 01/18/21 10:30 10:45 11:00 Temperature Pulse Rate 93 H 96 H Respiratory 29 H 22 25 H Rate Blood Pressure 151/79 151/79 157/84 O2 Sat by Pulse 100 100 100 Oximetry 01/18/21 01/18/21 01/18/21 11:15 11:30 11:45 Temperature Pulse Rate 97 H 101 H 97 H Respiratory 23 24 31 H Rate Blood Pressure 151/84 134/86 152/84 O2 Sat by Pulse 100 100 100 Oximetry 01/18/21 01/18/21 01/18/21 11:52 12:00 12:15 Temperature 102.1 F H Pulse Rate Respiratory 18 25 H Rate Blood Pressure 149/78 134/86 O2 Sat by Pulse 100 100 Oximetry 01/18/21 01/18/21 01/18/21 12:20 12:30 12:45 Temperature Pulse Rate 91 H Respiratory 16 Rate Blood Pressure 153/75 142/69 142/69 O2 Sat by Pulse 100 100 99 Oximetry 01/18/21 01/18/21 01/18/21 13:01 13:15 13:30 Temperature Pulse Rate 103 H 99 H 104 H Respiratory 14 14 31 H Rate Blood Pressure 153/80 158/85 160/95 O2 Sat by Pulse 100 100 100 Oximetry 01/18/21 01/18/21 01/18/21 13:45 14:00 14:15 Temperature Pulse Rate 102 H 103 H 100 H Respiratory 22 32 H 26 H Rate Blood Pressure 144/80 144/80 164/94 O2 Sat by Pulse 100 100 100 Oximetry - General physical appearance well developed, no distress, obese - Respiratory normal expansion, normal respiratory effort, other (Intubated on ventilator) - Abdomen soft, other (Opening in midline wound with serosanguineous drainage and fat necrosis. Remainder stable line intact. Drains with serosanguineous drainage in tubing, fluid has a greenish appearance in the bulb may be due to Pseudomonas.) - Labs 01/18/21 10:37 01/18/21 04:15 Diabetes panel 01/17/21 01/18/21 Range/Units 23:00 04:15 Sodium 153 H (137-145) mmol/L Potassium 3.3 L 3.3 L (3.6-5.0) mmol/L Chloride 113.1 H (98-107) mmol/L Carbon Dioxide 26 (22-30) mmol/L BUN 55 H (9-20) mg/dL Creatinine 1.9 H (0.8-1.3) mg/dL Glucose 100 (75-100) mg/dL Calcium 7.4 L (8.4-10.2) mg/dL Calcium panel 01/18/21 Range/Units 04:15 Calcium 7.4 L (8.4-10.2) mg/dL Pituitary panel 01/17/21 01/18/21 Range/Units 23:00 04:15 Sodium 153 H (137-145) mmol/L Potassium 3.3 L 3.3 L (3.6-5.0) mmol/L Chloride 113.1 H (98-107) mmol/L Carbon Dioxide 26 (22-30) mmol/L BUN 55 H (9-20) mg/dL Creatinine 1.9 H (0.8-1.3) mg/dL Glucose 100 (75-100) mg/dL Calcium 7.4 L (8.4-10.2) mg/dL Adrenal panel 01/17/21 01/18/21 Range/Units 23:00 04:15 Sodium 153 H (137-145) mmol/L Potassium 3.3 L 3.3 L (3.6-5.0) mmol/L Chloride 113.1 H (98-107) mmol/L Carbon Dioxide 26 (22-30) mmol/L BUN 55 H (9-20) mg/dL Creatinine 1.9 H (0.8-1.3) mg/dL Glucose 100 (75-100) mg/dL Calcium 7.4 L (8.4-10.2) mg/dL
[2021-01-18] MEDS ORDERED: DEXTROSE 5% IN WATER 1,000 ML IV SCH (15:00)
[2021-01-19] MEDS: MEROPENEM/NS 1 GRAM/100 ML 1 GRAM/100 ML BAG IV SCH ×3 (00:35→18:02)
--- NOTE | 2021-01-19 04:57 | XRay Report ---
. CHEST 1 VIEW INDICATION / CLINICAL INFORMATION: intubated/ ro effusion. Dyspnea FINDINGS: SUPPORT DEVICES: No significant change in position. HEART / MEDIASTINUM: The cardiomediastinal silhouette has not significantly changed in the interim. LUNGS / PLEURA: Bilateral airspace disease persist unchanged from 01/08/2021 Signer Name: Raymundo Whitt MD Signed: 01/19/2021 4:52 AM Workstation Name: [id number]
[2021-01-19] MEDS: dexmedeTOMIDine 1,000 MCG in SODIUM CHLORIDE 0.9% 250ML 250 ML IV SCH ×2 (06:10→14:56)
[2021-01-19] MEDS: HEPARIN 5,000 UNIT/1 ML VIAL SUB-Q SCH ×3 (06:11→21:29)
[2021-01-19] MEDS: INSULIN REGULAR, HUMAN 100 UNITS/1 ML SUB-Q SCH ×3 (06:12→12:47)
[2021-01-19] MEDS: FREE WATER PO SCH ×5 (06:13→21:36)
[2021-01-19 07:54] LABS: Hematocrit 24.6 % (35.5-45.6); Hemoglobin 8.2 gm/dl (11.8-15.2); Mean Corpuscular HGB Conc 33 % (32-34); Mean Corpuscular Volume 87 fl (84-94); Platelet Count 357 K/mm3 (140-440); Red Blood Count 2.82 M/mm3 (3.65-5.03); Red Cell Distribution Width 16.8 % (13.2-15.2)
[2021-01-19] MEDS ORDERED: POTASSIUM CHLORIDE 20 MEQ PACKET FEEDTUBE ONE (08:00)
[2021-01-19 08:15] LABS: BUN/Creatinine Ratio 31; Blood Urea Nitrogen 50 mg/dL (9-20); Calcium 8.1 mg/dL (8.4-10.2)
--- NOTE | 2021-01-19 08:55 | Progress Note ---
Assessment and Plan Impression * Nonoliguric acute kidney injury secondary to ATN --HD initiated December 30 * Incarcerated hernia with ischemic bowel. Status post bowel resection * Hypernatremia, * Fluid overload * Sepsis * Respiratory failure, intubated * Hyperkalemia * Metabolic Acidosis, Gap * Hypoalbuminemia * Anemia * Bacteremia Recommendations * Patient with good UOP. Patient seems to be in diuretic phase of ATN. * Serum creatinine is also trending down. Shall continue to hold dialysis for now. * Do not anticipate need for additional dialysis treatment. Patient is bacteremic. His Vas-Cath has been removed * Would recommend maintaining Lawrence catheter for now * Transfuse for Hb < 7 * TPN per nutrition/primary * Pressors prn to maintain MAP greater than 65 * Avoid nephrotoxins * Monitor fluid status and electrolytes * Replace potassium * Increase intravenous D5W. Add potassium to the IV fluid * Continue free water through feeding tube as well * Plans for transfer to LTAC noted Subjective Date of service: 01/19/21 Principal diagnosis: SBO and necrosis of large part of small intestine Interval history: Patient remains on the ventilator. Currently on 30% FiO2. Oxygen saturation is 99%. Right IJ Vas-Cath has been removed Objective - Vital Signs Vital signs: Vital Signs - 12hr 01/18/21 01/18/21 01/18/21 21:00 21:15 21:30 Temperature Pulse Rate 92 H 87 90 Pulse Rate [ From Monitor] Respiratory 25 H 16 30 H Rate Blood Pressure 162/91 156/84 148/82 O2 Sat by Pulse 100 100 100 Oximetry 01/18/21 01/18/21 01/18/21 21:45 22:00 22:08 Temperature Pulse Rate 90 91 H 89 Pulse Rate [ From Monitor] Respiratory 24 29 H 25 H Rate Blood Pressure 158/84 158/90 158/90 O2 Sat by Pulse 100 100 100 Oximetry 01/18/21 01/18/21 01/18/21 22:15 22:16 22:30 Temperature Pulse Rate 91 H 88 89 Pulse Rate [ From Monitor] Respiratory 16 28 H 20 Rate Blood Pressure 152/88 158/90 143/84 O2 Sat by Pulse 100 100 100 Oximetry 01/18/21 01/18/21 01/18/21 22:45 23:00 23:15 Temperature Pulse Rate 88 87 89 Pulse Rate [ From Monitor] Respiratory 22 27 H 21 Rate Blood Pressure 146/84 144/86 136/85 O2 Sat by Pulse 100 100 100 Oximetry 01/18/21 01/18/21 01/19/21 23:30 23:45 00:00 Temperature 101.0 F H Pulse Rate 84 90 87 Pulse Rate [ 86 From Monitor] Respiratory 27 H 28 H 17 Rate Blood Pressure 143/83 148/82 150/85 O2 Sat by Pulse 100 100 100 Oximetry 01/19/21 01/19/21 01/19/21 00:07 00:15 00:30 Temperature Pulse Rate 89 88 88 Pulse Rate [ From Monitor] Respiratory 27 H 20 Rate Blood Pressure 150/85 162/84 140/79 O2 Sat by Pulse 100 100 100 Oximetry 01/19/21 01/19/21 01/19/21 00:45 01:00 01:15 Temperature Pulse Rate 86 87 85 Pulse Rate [ From Monitor] Respiratory 25 H 27 H 28 H Rate Blood Pressure 140/77 144/78 138/79 O2 Sat by Pulse 100 100 100 Oximetry 01/19/21 01/19/21 01/19/21 01:30 01:45 02:00 Temperature Pulse Rate 85 88 86 Pulse Rate [ From Monitor] Respiratory 28 H 26 H 29 H Rate Blood Pressure 142/78 143/80 146/85 O2 Sat by Pulse 100 100 100 Oximetry 01/19/21 01/19/21 01/19/21 02:15 02:30 02:45 Temperature Pulse Rate 88 86 87 Pulse Rate [ From Monitor] Respiratory 21 25 H 25 H Rate Blood Pressure 143/84 146/80 153/84 O2 Sat by Pulse 100 100 100 Oximetry 01/19/21 01/19/21 01/19/21 03:00 03:15 03:31 Temperature Pulse Rate 89 88 89 Pulse Rate [ From Monitor] Respiratory 28 H 25 H 25 H Rate Blood Pressure 163/96 151/87 145/83 O2 Sat by Pulse 100 100 100 Oximetry 01/19/21 01/19/21 01/19/21 03:43 03:45 03:50 Temperature 100.4 F H Pulse Rate 86 84 Pulse Rate [ From Monitor] Respiratory 25 H Rate Blood Pressure 155/83 155/83 O2 Sat by Pulse 100 100 Oximetry 01/19/21 01/19/21 01/19/21 04:00 04:15 04:30 Temperature Pulse Rate 89 89 88 Pulse Rate [ 89 From Monitor] Respiratory 16 24 20 Rate Blood Pressure 127/87 122/83 121/88 O2 Sat by Pulse 100 100 94 Oximetry 01/19/21 01/19/21 01/19/21 04:45 05:00 05:15 Temperature Pulse Rate 90 95 H 90 Pulse Rate [ From Monitor] Respiratory 25 H 29 H 25 H Rate Blood Pressure 121/88 157/95 156/85 O2 Sat by Pulse 97 98 95 Oximetry 01/19/21 01/19/21 01/19/21 05:30 05:45 06:01 Temperature Pulse Rate 90 96 H 96 H Pulse Rate [ From Monitor] Respiratory 24 28 H Rate Blood Pressure 161/83 161/83 161/83 O2 Sat by Pulse 97 96 97 Oximetry 01/19/21 01/19/21 01/19/21 06:15 06:30 06:45 Temperature Pulse Rate 92 H 88 89 Pulse Rate [ From Monitor] Respiratory 23 29 H 17 Rate Blood Pressure 126/70 120/63 125/61 O2 Sat by Pulse 97 97 99 Oximetry 01/19/21 08:33 Temperature Pulse Rate 89 Pulse Rate [ From Monitor] Respiratory Rate Blood Pressure 134/74 O2 Sat by Pulse 100 Oximetry - General Appearance General appearance: well-developed, well-nourished, appears stated age, intubated EENT: ATNC, PERRL Neck: no JVD, no thyromegaly Respiratory: Present: Ronchi (Few scattered rhonchi) Cardiology: regular, normal heart rate Gastrointestinal: other (Midline dressing in place. Abdominal binder noted) Integumentary: other (No peripheral edema) - Lab 01/19/21 07:39 01/19/21 07:39 Most recent lab results ABG pH 7.484 (7.320-7.450) H 01/13/21 03:14 ABG pCO2 37.9 mm Hg 01/05/21 03:50 ABG pO2 136.8 mm Hg (80.0-90.0) H 01/05/21 03:50 ABG HCO3 22.4 mmol/L (20.0-26.0) 01/05/21 03:50 ABG O2 Saturation 98.3 (0-100) 01/13/21 03:14 Calcium 8.1 mg/dL (8.4-10.2) L 01/19/21 07:39 Phosphorus 4.40 mg/dL (2.5-4.5) 01/17/21 04:30 Magnesium 1.50 mg/dL (1.7-2.3) L 01/19/21 07:39 Urine Creatinine 78.1 mg/dL (0.1-20.0) H 12/23/20 12:15 Urine Sodium 13 mmol/L 12/23/20 12:15 Medications & Allergies - Medications Allergies/Adverse Reactions: Allergies Iodinated Contrast Media Adverse Reaction (Verified 09/04/18 14:20) Unknown Home Medications: Home Medications Medication Instructions Recorded Confirmed Last Taken Type Aspirin 81 mg PO DAILY #30 tab.chew 09/08/18 01/04/21 03/31/20 09:28 Rx AtorvaSTATin [Lipitor] 80 mg PO QHS tablet 05/08/19 01/04/21 03/28/20 Rx Albuterol Sulfate [Proventil Hfa] 13.4 gm IH Q6H #1 hfa.aer.ad 04/01/20 01/04/21 Unknown Rx Clopidogrel [Plavix] 75 mg PO DAILY #30 tablet 04/01/20 01/04/21 Unknown Rx Gabapentin 300 mg PO BID@0700,1800 30 Days 04/01/20 01/04/21 Unknown Rx capsule Gabapentin 600 mg PO QHS 30 Days capsule 04/01/20 01/04/21 Unknown Rx Metoprolol [Lopressor TAB] 25 mg PO BID #60 tablet 04/01/20 01/04/21 Unknown Rx [place]-3/Dha/Epa/Fish Oil [[place] 3 1 each PO BID #60 capsule 04/01/20 01/04/21 Unknown Rx 500 Softgel] Tiotropium [place] [Spiriva] 2 puff IH DAILY #30 cap.w.dev 04/01/20 01/04/21 Unknown Rx Ubidecarenone [Co Q-10] 10 mg PO BID #60 tab 04/01/20 01/04/21 03/29/20 Rx cilostazoL [Pletal] 50 mg PO BID 30 Days tablet 04/01/20 01/04/21 Unknown Rx oxyCODONE /ACETAMINOPHEN [Percocet 2 tab PO Q6H PRN tablet 04/01/20 01/04/21 Unknown Rx 5/325 mg] Phosphorus #1 [K-Phos Neutral] 250 mg PO QID 2 Days #8 tablet 09/14/20 01/04/21 Unknown Rx Active Medications: Generic Name Dose Route Start Last Admin Trade Name Freq PRN Reason Stop Dose Admin Acetaminophen 650 mg 01/16/21 03:57 01/18/21 11:04 Acetaminophen 325 Mg/10.15 Ml Oral Liqd Unit Dose FEEDTUBE 650 mg Q6H PRN Administration Non Cardiac Pain or Temp>100.5 Lipase/Protease/Amylase 1 each 01/07/21 08:44 Lipase 10,500/Protease 25,000/Amylase 43,750 (Units) Dr Maharaj FEEDTUBE PRN PRN For Clogged Feeding Tube Dextrose 50 ml 12/24/20 10:49 Dextrose 50% In Water (25gm) 50 Ml Syringe IV Q30MIN PRN Hypoglycemia Protocol Famotidine 20 mg 01/17/21 10:00 01/18/21 21:26 Famotidine 20 Mg Tab PO 20 mg BID ASCENCION Administration Fentanyl 1 applic 01/11/21 14:00 01/17/21 10:41 Fentanyl 50 Mcg/Hr Patch 72hr TD 1 applic Q3D ASCENCION Administration Heparin Sodium (Porcine) 5,000 unit 01/06/21 14:00 01/19/21 06:11 Heparin 5,000 Unit/1 Ml Vial SUB-Q 5,000 unit Q8HR ASCENCION Administration Hydromorphone HCl 0.5 mg 01/12/21 10:10 01/17/21 15:00 Hydromorphone 1 Mg/1 Ml Inj IV 0.5 mg Q4H PRN Administration Pain , Severe (7-10) Hydromorphone HCl 0.25 mg 01/12/21 10:11 01/15/21 15:40 Hydromorphone 1 Mg/1 Ml Inj IV 0.25 mg Q4H PRN Administration Pain, Moderate (4-6) Hydrophilic Ointment 1 applic 12/20/20 21:58 Lip Therapy Vaseline TP Q2HR PRN Dry Lips Propofol 1,000 mg in 100 mls @ 3.606 mls/hr 12/20/20 22:00 01/19/21 08:52 Diprivan 10 Mg/Ml IV 10 mcg/kg/min TITR ASCENCION 7.212 mls/hr Titration Protocol 5 MCG/KG/MIN Dexmedetomidine HCl 1,000 mcg/ 260 mls @ 7.322 mls/hr 01/15/21 01:00 01/19/21 06:10 Sodium Chloride IV 1.2 mcg/kg/hr TITRATE ASCENCION 43.93 mls/hr Administration Protocol 0.2 MCG/KG/HR MEROPENEM/NS 1 GRAM/100 ML 1 gram in 100 mls @ 100 mls/hr 01/18/21 12:00 01/19/21 00:35 Merrem/Ns 1 Gram/100 Ml IV 100 mls/hr Q12H ASCENCION Administration Protocol Dextrose 1,000 mls @ 50 mls/hr 01/18/21 15:00 01/18/21 15:47 D5w IV 01/19/21 10:59 50 mls/hr DIRECT ASCENCION Administration Insulin Human Regular 0 units 12/28/20 00:00 01/19/21 06:13 Insulin Regular, Human 100 Units/1 Ml SUB-Q Not Given Q6H ASCENCION Protocol Metoprolol Tartrate 5 mg 01/14/21 13:37 01/15/21 12:42 Metoprolol Tartrate 5 Mg/5 Ml Inj IV 5 mg Q6H PRN Administration SBP >/=160 Multi-Ingred Cream/Lotion/Oil/Oint 1 applic 12/20/20 21:58 01/03/21 01:13 Mineral Oil/Petrolatum, White Ophth Oint 3.5 Gm OU 1 applic Q4HR PRN Administration Dry Eye(s) Simple Syrup 15 ml 01/07/21 08:44 Simple Syrup 15 Ml FEEDTUBE PRN PRN Hypoglycemia Sodium Bicarbonate 325 mg 01/07/21 08:44 Sodium Bicarbonate 325 Mg Tab FEEDTUBE PRN PRN For Clogged Feeding Tube Sodium Chloride 10 ml 12/20/20 22:00 01/19/21 00:35 Sodium Chloride 0.9% 10 Ml Flush Syringe IV 10 ml BID ASCENCION Administration Sodium Chloride 10 ml 12/20/20 16:42 01/17/21 06:01 Sodium Chloride 0.9% 10 Ml Flush Syringe IV 10 ml PRN PRN Administration LINE FLUSH
[2021-01-19] MEDS: FAMOTIDINE 20 MG TAB PO SCH ×2 (09:34→21:28)
[2021-01-19] MEDS ORDERED: MAGNESIUM SULFATE 2 GM/50 ML BAG IV ONE ×2 (09:37→12:30)
--- NOTE | 2021-01-19 09:50 | Progress Note ---
Assessment and Plan Assessment and plan: Assessment and plan: This is a 60-year-old male with obesity, hypertension, nicotine dependence, PVD s/p stent placement on dual antiplatelet therapy, hyperlipidemia, OA, GERD, ventral hernia and small bowel obstruction who was admitted with small bowel obstruction and peritonitis Neuro Postoperative pain; hx OA; hx acute/chronic abd pain; hx narcotic use at home due to a/c pain; hx med non adherence -IV PRN pain meds -avoid oversedation as they will inhibit his SBT -continuing to wean propofol and dex but pt does get agitated and pulls at lines and tubes 12 lead ordered to assess QT will add PO seroquel BID today- monitor response; hope is this will facilitate d/c of propofol -PRN pain medications -has been getting dilaudid scheduled every 4 hours for pain; for post op pain and high opiate use/tolerance; Dr Cherry would like to continue -normalize day night to limit delirium -remains in soft wrist restraints and mittens -nodding appropriately -following commands -moving all extremities -not that due to pts chronic pain he was on opiates at home (per family he took more than was prescribed); per his brother he would not fill his non pain medications so that he could get his opiates; hopefully now that his hernias have been repaired this will not be an ongoing issue p the immed. post op recovery period. -Pt has a son (disclosed late in admission), pt lives with his mother; pt has a brother that is has been involved in care decisions. The brother states their mother is of age and not well herself so she has deferred care decisions to him Discharge planning per family service caseworker impending LTAC evaluation and placement CV on no pressors SR Hypertension -resume home meds for bp when appropriate -metop PRN hx CAD with stent -resume home asa and plavix when appropriate; was also on pletal hx Hyperlipidemia -resume home statin when appropriate Resp Post op hypoxic respiratory failure -intubated 12/20 -remains intubated -consider trach -daily sedation holiday -vent weaning and conditioning to PS as tolerated; daily per RT -placed on 06/26 PS and inc RR to 40's - back to CMV- see RT flow sheet for settings -VBG noted this AM -chest xray noted this AM- no localized infiltrate or consolidation -ETT repositioned 24 cm at teeth is 1.5 cm above henrietta; pt has a lot of secretions today- white and thin in nature xray obtained post repositioning RT changed ETT pond Nicotine dependence -Smoking cessation counseling when appropriate GI Small bowel obstruction with peritonitis, incarcerated Ventral hernia s/p repair -12/20 CT abdomen/pelvis showed high-grade small bowel obstruction related to severe complex ventral abdominal wall hernias, progressed in appearance from prior exam from 09/12/2020 without evidence of pneumonitis or pneumoperitoneum, patchy bibasilar airspace disease concern for atypical infectious process/pneumonitis -12/20 s/p ex lap, extensive lysis of adhesions, small bowel resection (removal of 70 cm necrotic small bowel segment), peritoneal lavage and ABThera abdominal wound VAC placement -12/23 s/p abdominal exploration, small bowel resection, peritoneal lavage, ABThera wound VAC placement -12/26 s/p ex lap, small bowel resection, peritoneal lavage, ABThera wound VAC placement -12/29 s/p ex lap, small bowel resection, small bowel anastomosis and ABThera wound VAC placement -01/01 s/p myocutaneous flap creation, abdominal wall component separation and placement of phasix mesh with surgery yesterday where his abdomen was closed and 2 LAURA drains were placed on either side of his midline between fascia and subcu tissue. -12/30 initiated on HD by nephro -01/09 CT abdomen/pelvis with contrast shows large organized virtually bland appearing fluid collection along the anterior abdomen measuring up to 29 cm in the craniocaudal dimension and 2.6 cm in transverse dimension which may reflect postoperative seroma or hematoma, no associated gas to suggest superimposed infection, no contrast is seen within the collection to suggest bowel perforation -01/09 CT chest with contrast shows CHF with small left and trace right pleural effusions and diffuse groundglass opacities in airspace consolidation consistent with pulmonary edema (superimposed multifocal pneumonia is not excluded), diffu se anasarca likely related to third spacing of fluid. Midline abdominal incision -Ulceration to midline abdominal incision with purulent drainage -01/17 wound culture sent with primary growth of gram-negative rods -WOCN consulted, appreciate recommendations -Wound care per nursing -Dr Tena aware of wound status-continue wound care per WOCN; nav should remain in for now; LAURA drains to remain until pt extubated Protein calorie malnutrition -S/p TPN- discontinued as he is tolerating TF -dobhoff replaced this AM- KUB ordered -Tube feedings per nutrition recs changed TF due to diarrhea fiber was also added yesterday hx GERD -continue PPI diarrhea -appears to be TF diarrhea -fiber to continue -BMS in place- remove steffen -consider cdiff- will discuss with ID Acute Kidney Injury, due to ATN improving; hypoMg; hypoK; hyperna -12/23 fracture excretion of sodium calculated at 0.16 secondary prerenal state -nephrology following -HD d/c given renal recovery -Strict intake and output -net neg 2L over 24 hours; polyuria continues -Daily weights -Trend Cr -polyuria Hypernatremia -D5W with K scheduled continues -Trend sodium -FWF for Na Hypokalemia -Trend potassium -Replete as necessary -K given IV and PO today -scheduled BID dosing ordered x 3 doses Hypomagnesemia- -4GM Mg today Metabolic Acidosis, Gap- improving ABG in AM Hypoalbuminemia Heme Anemia -Transfuse for hemoglobin less than 7 -01/09 stool occult positive -GI aware -Trend Hgb -no bleeding on exam (stools taylor in color) VTE prophylaxis -cont SCD and ASCENCION ID Septic Shock on admit; peritonitis; leukocytosis: bacteremia/wound/UTI -ID following -Antibiotic therapy per ID -changed to dawna 01-18 -follow cultures -[facility] -haley changed 01-18 -12/20 tracheal aspirate with mucus species which does not to be treated per ID -12/20 blood cultures x2 with no growth, urine culture with usual skin giorgio -01/16 blood cultures x2 with gram-negative jose enrique, abdominal wound culture with 2 species of gram-negative rods -COVID-19 neg on admit -trend temp and WBC curve -wound care per WOCN and nursing Endo hx Obesity Hyperglycemia -SSI PRN -avoid hypoglycemia PLAN LTAC ON SATURDAY per case management GI/DVT prophylaxis: PPI, SCDs and SQH Disposition: ICU Lines: PICC placed 01/05, Haley catheter; BMS The high probability of a clinically significant, sudden or life threatening deterioration of the [multi] system(s) required my full and direct attention, intervention and personal management. The aggregate critical care time was [35] minutes. This time is in addition to time spent performing reported procedures but includes the following: [x] Data Review and interpretation [x] Patient assessment and monitoring of vital signs [x] Documentation [x] Medication orders and management Disposition Plan: LTAC Total Time Spent with Patient (Minutes): 60 History Interval history: Pt remains intubated. Nodding and following commands. No acute events overnight- continuing to correct electrolytes HPI This is a 60-year-old male with obesity, hypertension, nicotine dependence, PVD s/p stent placement on dual antiplatelet therapy, hyperlipidemia, OA, GERD, ventral hernia with SBO who presents to the emergency department on 12/20 with severe, diffuse, worsened with movement, slightly relieved with rest abdominal pain rated at 10/10 with decreased oral intake, nausea and multiple episodes of vomiting. Patient underwent a CT of his abdomen/pelvis and was found to have e vidence of small bowel obstruction as well as clinical findings consistent with acute peritonitis. 12/20: Patient was admitted to the hospital service with acute peritonitis and incarcerated ventral hernia with consults to [facility] and surgery. 12/21: Patient is status post ex lap, extensive lysis of adhesions, small bowel resection, peritoneal lavage and ABThera abdominal wound VAC placement by Dr. Della ruelas and Dr. Brumfield on 12/20 with removal of a 70 cm segment of necrotic small bowel. Patient was intubated and sedated on propofol 4 at the time of my examination on Assist-control, rate of 24, PEEP of 6, tidal volume of 550 and FiO2 35%. Patient needed to be deeply sedated and there was a became hypotensive. Patient was started on patient for support with Levophed and received bolus of IVF. 12/22: Patient was febrile to 103 and vancomycin and Diflucan were added by [facility] and infectious disease was consulted and they increased Zosyn and stop vancomycin. Patient was given additional 1 L bolus today for CVP goal of 10-12. At the time of examination patient was on Levophed, propofol and fentanyl CMV tidal volume 500, rate of 24, PEEP of 6 and FiO2 65%. Plan for OR tomorrow 12/23: Patient Cr/BUN noted to be increased and nephrology was consulted. ID decreased the zosyn dose d/r renal function. Urine studies ordered. Blythe placed today. LR boluses per [facility], TPN to be started. Fractional excretion of sodium calculated at 0.16 indicating prerenal state 12/24: Patient is status post abdominal exploration, small bowel resection of 4 to 5 cm segment of dusky small bowel, peritoneal lavage and ABThera wound VAC placement on 12/23 with surgery, leukocytosis and renal function is improving, worsening hypernatremia and hyperchloremia. Patient will be started on TPN today. We will place on SSI/Accu-Cheks every every 6 hours. Patient noted to be nearly maxed on Levophed and vasopressin was ordered. Remains sedated and on MV 12/25: Leukocytosis continues to improve, given Ca Gluconate today, Hypernatremia, Cr and hyperchorlemia slightly worsened today. Patient is sedated with propofol and fentanyl on CMV TV 500, Rate 24, Peep 6, FiO2 50%. He remains on levophed. Possible OR Saturday. 12/26 Patient presented with small bowel obstruction, is status post ex lap, extensive lysis of adhesions, small bowel resection, peritoneal lavage and ABThera abdominal wound VAC placement by Dr. Tena and Dr. Brumfield on 12/20 with removal of a 70 cm segment of necrotic small bowel. Was taken back to OR on 12/23 s/p Abdominal exploration, Small bowel resection, Peritoneal lavage, ABThera wound VAC placement. he is still having fever. Poss going to OR again today. Sepsis managed by ID. He is on Diflucan, Zosyn. He is on Levophed. 6/ s/p ex lap, extensive lysis of adhesions, small bowel resection (removal of 70 cm necrotic small bowel segment), peritoneal lavage and ABThera abdominal wound VAC placement. Still having fever Still on vent 12/28: Patient is orally intubated with AC mode ventilation rate 24, tidal volume 500, FiO2 75% and PEEP of 6. POD#8 s/p ex lap and small bowel resection for necrotic bowel secondary to incarcerated ventral hernia left with open abdomen. POD#5 s/p abdominal exploration with segmental small bowel resection. abthera placement POD#2 s/p abdominal exploration, small bowel resection for ischemia, abthera placement -CCM, surgery, infectious disease, nephrology consulted, appreciate recommendations -IV abx per ID: Zosyn, fluconazole -NGT to LIWS -NPO for now, TPN -SSI, Accucheck q6 -Vasopressor support with levophed -On mechanical ventilation, wean as tolerated, VAP bundle -Sedated with propofol and analgesia with fentanyl drip -Trend CBC, BMP, Mg, Phos -GI/DVT prophylaxis: PPI, SCDs to bilateral lower extremities while in bed, avoid chemical anticoagulation to cleared by surgery 12/29: Patient underwent abdominal exploration, small bowel resection, small bowel anastomosis and ABThera wound VAC placement this a.m. Patient remains on AC mode ventilation with a rate of 24, tidal volume 500, FiO2 65% and PEEP of 6. Continue antibiotics per ID recommendations. Continue vasopressor support as needed. Continue TPN for nutritional support. 12/30: Patient currently with AC mode ventilation rate of 24, tidal volume 500, FiO2 60% and PEEP of 6. Patient underwent further surgery yesterday with another abdominal exploration, small bowel resection, small bowel anastomosis and replacement of the ABThera wound VAC. Patient continues to require vasopressor support with vasopressin and Levophed. Continue TPN for nutrition. Continue propofol and fentanyl for sedation. Continue Zosyn per ID recommendations. INITIATED ON HD PER NEPHRO 12/31: Patient currently with AC mode ventilation rate of 24, tidal volume 500, FiO2 50% and PEEP of 6. POD#12 s/p ex lap and small bowel resection for necrotic bowel secondary to incarcerated ventral hernia left with open abdomen. POD#9 s/p abdominal exploration with segmental small bowel resection. abthera placement POD#3 s/p abdominal exploration, small bowel resection for ischemia, abthera pl acement POD#2 s/p abdominal exploration with small bowel anastamosis and abthera vac placement Continue hemodialysis per nephrology recommendations. Surgery plans for abdominal washout and bowel examination on Saturday. If anastamosis looks viable and no other issues, surgery plans to close his abdom en. 01/01: Continue current ventilator settings per pulmonary monitor ABG. Continue antibiotics per ID recommendations. Surgery plans for abdominal washout and bowel examination. If anastamosis looks viable and no other issues, surgery plans to close his abdomen. Wean pressors to maintain MAP > 65. Continue TPN for nutritional support. Hemodialysis per nephrology recommendations. Prognosis remains guarded. 01/02: At the time my examination patient was only on vasopressin for vasopressor support, sedated on 30 mcg of propofol and 4 mcg of fentanyl. Patient was on CMV tidal volume 500, rate of 12, PEEP of 10 and 50% FiO2. Patient remains on TPN and with NG tube to low intermittent suction. Patient underwent a myocutaneous flap creation, abdominal wall component separation and placement of phasix mesh with surgery yesterday where his abdomen was closed and 2 LAURA drains were placed on either side of his midline between fascia and subcu tissue. Per infectious his antibiotics will continue until 5 days postop from a final surgery. Patient has increasing leukocytosis which are likely reactive to surgery and patient will have hemodialysis today for clearance and volume removal. Patient sedation and mechanical ventilation will be weaned for extubation. 01/03: Patient H/H is 6.2/18.5 and he is being transfused 2 units PRBC with hemodialysis today. Patient has slight hypokalemia but TPN has been adjusted to address potassium. Patient continues to have hyponatremia, hypochloremia and hyperphosphatemia closely improved. The time my examination patient sedated on fentanyl and propofol and LAURA drainage noted to be more serosanguineous. Patient was on assist control with TV 500, PEEP of 8, rate of 28 and FiO2 40%. Patient remains off vasopressor support. No acute overnight events reported 01/04: Patient sedated on propofol and fentanyl. RN reported bowel movement overnight. Precedex drip started. NG tube clamped and may start trickle tube feedings later if patient does not have high residuals. CCM continues to wean ventilation as tolerated. On my exam patient is on CMV tidal volume 500 rate of 28, PEEP of 8 and 40% FiO2. Patient is having periods of agitation and FiO2 had to be increased for hypoxia. Mucor species in tracheal aspirate but ID believes this is colonization. 01/05: Patient is severely agitated and received multiple IV push fentanyl. Patient was ultimately started on propofol. He received hemodialysis today. Patient had approximately 400 mL of NG output overnight. NG tube continues to be on suction. Leukocytosis worsened today. 01/06: Patient is agitated despite fentanyl pushes and Dilaudid was ordered, patient noted to be anemic with a hemoglobin of 6.5 and will be transfused 1 unit PRBC today. Nephrology does not plan to dialyze him today and to keep him on Saturday, , Saturday schedule. No acute events reported overnight. Patient NG tube residuals continue to decrease and surgery has cleared for trickle tube feeds which has been communicated to dietitian. 01/07: This this morning H/H resulted at 6.7/20.1 after 1 unit PRBC 6.7/21.8. Patient's ABG today shows respiratory acidosis and vent settings have been c hanged by [facility]. Patient should receive hemodialysis today as he is on Saturday schedule. Overnight RN reported 700 mL of NG tube output over 12 hours. We will hold off on trickle feeds and continue TPN. At the time of my examination patient was sedated on propofol, fentanyl, Precedex and on CMV tidal volume 550, rate of 10, PEEP of 8 and 35% FiO2. We will order coags and stool guaiac to further investigate anemia. -01/09 stool pos for guiac; CT Chest/abd/pelvis -01/10: Patient this morning with elevated BP, likely secondary to pain vs ?Hx of Htn, Hydralazine PRN ordered and added to the patient, will monitor. Continue pain control. Wound care management and vent weaning when ok with surgery and Plater Apprentice 01/12: Continue supportive care including pain control. Monitor for bowel movement. Continue off antibiotics per ID monitor. Banking Assistant following for HD. 01/13/21 patient is seen and examined. Patient is still on vent. Wean to extubate as per critical care. Patient is off antibiotic as per infectious disease. Status post dialysis catheter placed in the right IJ. HD as per nephrology. Continue current management. Recheck CBC BMP in the morning. 01/14/21 patient seen and examined. Patient is still on vent. Patient is agitated. We will try to wean the sedation. We will start metoprolol 5 mg p.o. every 8 hours as needed for blood pressure. Patient is off antibiotic as per infectious disease. Continue hemodialysis as per nephrology. Continue current management. Critical care follow-up. Prognosis is guarded. Recheck CBC BMP in the morning 01/15: Remains with guarded prognosis, no clear evidence of renal recovery, still on the vent. Monitor H/H and repeat CT A/P if downward trend. Replace K. 01/16: Patient is hypokalemic today at 2.9, patient's urinalysis reveals UTI and patient is already on cefepime, vancomycin and fluconazole per ID. Patient's urine output noted to be 1731-2657 mL over the past couple days. Nephrology r equested to hold off removal of Haley catheter as the patient seems to be in the diuretic phase of ATN and will withhold dialysis for now and evaluate. At the time my examination patient is sedated on propofol and Precedex on CMV tidal line 500, rate of 24, PEEP of 6 and 30% FiO2. Patient was febrile last night with a T-max of 102.7. Patient was cultured overnight. Wound care consult for abd wound with purulent drainage, culture sent. 01/17: Patient is again hypokalemic and hypomagnesemic which was repleted with K- Phos and KCl overnight. Patient has hypernatremia. Nephrology has started the patient on hypotonic IVF with potassium. Right IJ Vas-Cath ordered to be removed. Patient's abdominal culture and blood cultures from 01/16 are growing gram-negative rods. The time my examination patient was on propofol and dexamethasone on assist control. T-max 102.7. ETT repositioned. 01/18 Discharge planning for LTAC; weaning propofol 01/19 no acute events overnight Hospitalist Physical - Physical exam Narrative exam: alert CLAY NAD - Constitutional Vitals: Temp Pulse Resp BP Pulse Ox 100.4 F H 89 17 134/74 100 01/19/21 03:43 01/19/21 08:33 01/19/21 06:45 01/19/21 08:33 01/19/21 08:33 General appearance: Present: no acute distress, obese - EENT Eyes: Present: PERRL, EOM intact ENT: hearing intact, clear oral mucosa - Neck Neck: Present: supple, normal ROM - Respiratory Respiratory effort: normal Respiratory: bilateral: diminished - Cardiovascular Heart rate: 92 Rhythm: regular Heart Sounds: Present: S1 & S2 - Extremities Extremities: no ischemia Peripheral Pulses: within normal limits - Abdominal General gastrointestinal: tender, other (midline abd wound- nav/LAURA x 2; pseudomonas ) - Integumentary Integumentary: Present: clear, warm, dry - Psychiatric Psychiatric: other (intubated; nodding approp.; moving all extremities to commands; periods of aggitation ) - Allied Health Allied health notes reviewed: nursing, RT, social work, case management HEART Score - HEART Score EKG: Normal Age: < 45 Risk factors: No known risk factors Troponin: Troponin T < 0.010 ng/mL (0.00-0.029) 12/20/20 13:58 Troponin: < normal limit - Critical Actions Critical Actions: 0-3 pts:0.9-1.7%risk of adverse cardiac event.Candidate for discharge Results - Labs CBC & Chem 7: 01/19/21 07:39 01/19/21 07:39 Labs: Laboratory Last Values WBC 9.2 K/mm3 (4.5-11.0) 01/19/21 07:39 RBC 2.82 M/mm3 (3.65-5.03) L 01/19/21 07:39 Hgb 8.2 gm/dl (11.8-15.2) L 01/19/21 07:39 Hct 24.6 % (35.5-45.6) L 01/19/21 07:39 MCV 87 fl (84-94) 01/19/21 07:39 MCH 29 pg (28-32) 01/19/21 07:39 MCHC 33 % (32-34) 01/19/21 07:39 RDW 16.8 % (13.2-15.2) H 01/19/21 07:39 Plt Count 357 K/mm3 (140-440) 01/19/21 07:39 Lymph % (Auto) 6.5 % (13.4-35.0) L 01/14/21 05:00 [place] % (Auto) 2.5 % (0.0-7.3) 01/14/21 05:00 Eos % (Auto) 7.7 % (0.0-4.3) H 01/14/21 05:00 Baso % (Auto) 0.6 % (0.0-1.8) 01/14/21 05:00 Lymph # (Auto) 0.8 K/mm3 (1.2-5.4) L 01/14/21 05:00 [place] # (Auto) 0.3 K/mm3 (0.0-0.8) 01/14/21 05:00 Eos # (Auto) 1.0 K/mm3 (0.0-0.4) H 01/14/21 05:00 Baso # (Auto) 0.1 K/mm3 (0.0-0.1) 01/14/21 05:00 Add Manual Diff Complete 01/10/21 04:01 Total Counted 100 01/10/21 04:01 Seg Neutrophils % 82.7 % (40.0-70.0) H 01/14/21 05:00 Seg Neuts % (Manual) 95.0 % (40.0-70.0) H 01/10/21 04:01 Band Neutrophils % 2.0 % 01/10/21 04:01 Lymphocytes % (Manual) 3.0 % (13.4-35.0) L 01/10/21 04:01 Monocytes % (Manual) 1.0 % (0.0-7.3) 01/09/21 10:10 Metamyelocytes % 1.0 % 01/09/21 10:10 Myelocytes % 1.0 % 01/09/21 10:10 Nucleated RBC % Not Reportable 01/10/21 04:01 Seg Neutrophils # 10.2 K/mm3 (1.8-7.7) H 01/14/21 05:00 Seg Neutrophils # Man 12.0 K/mm3 (1.8-7.7) H 01/10/21 04:01 Band Neutrophils # 0.3 K/mm3 01/10/21 04:01 Lymphocytes # (Manual) 0.4 K/mm3 (1.2-5.4) L 01/10/21 04:01 Abs React Lymphs (Man) 0.0 K/mm3 01/10/21 04:01 Monocytes # (Manual) 0.0 K/mm3 (0.0-0.8) 01/10/21 04:01 Eosinophils # (Manual) 0.0 K/mm3 (0.0-0.4) 01/10/21 04:01 Basophils # (Manual) 0.0 K/mm3 (0.0-0.1) 01/10/21 04:01 Metamyelocytes # 0.0 K/mm3 01/10/21 04:01 Myelocytes # 0.0 K/mm3 01/10/21 04:01 Promyelocytes # 0.0 K/mm3 01/10/21 04:01 Blast Cells # 0.0 K/mm3 01/10/21 04:01 WBC Morphology Not Reportable 01/10/21 04:01 Hypersegmented Neuts Not Reportable 01/10/21 04:01 Hyposegmented Neuts Not Reportable 01/10/21 04:01 Hypogranular Neuts Not Reportable 01/10/21 04:01 Smudge Cells Not Reportable 01/10/21 04:01 Toxic Granulation Not Reportable 01/10/21 04:01 Toxic Vacuolation Not Reportable 01/10/21 04:01 Dohle Bodies Not Reportable 01/10/21 04:01 Pelger-Huet Anomaly Not Reportable 01/10/21 04:01 Mirian Rods Not Reportable 01/10/21 04:01 Platelet Estimate Consistent w auto 01/10/21 04:01 Clumped Platelets Not Reportable 01/10/21 04:01 Plt Clumps, EDTA Not Reportable 01/10/21 04:01 Large Platelets Not Reportable 01/10/21 04:01 Giant Platelets Not Reportable 01/10/21 04:01 Platelet Satelliting Not Reportable 01/10/21 04:01 Plt Morphology Comment Not Reportable 01/10/21 04:01 RBC Morphology Not Reportable 01/10/21 04:01 Dimorphic RBCs Not Reportable 01/10/21 04:01 Polychromasia Not Reportable 01/10/21 04:01 Hypochromasia Few 01/10/21 04:01 Poikilocytosis Not Reportable 01/10/21 04:01 Anisocytosis Few 01/10/21 04:01 Microcytosis Few 01/10/21 04:01 Macrocytosis Not Reportable 01/10/21 04:01 Spherocytes Not Reportable 01/10/21 04:01 Pappenheimer Bodies Not Reportable 01/10/21 04:01 Sickle Cells Not Reportable 01/10/21 04:01 Target Cells Not Reportable 01/10/21 04:01 Tear Drop Cells Not Reportable 01/10/21 04:01 Ovalocytes Not Reportable 01/10/21 04:01 Helmet Cells Not Reportable 01/10/21 04:01 [place] Bodies Not Reportable 01/10/21 04:01 [place] Rings Not Reportable 01/10/21 04:01 [place] Cells Not Reportable 01/10/21 04:01 Bite Cells Not Reportable 01/10/21 04:01 Crenated Cell Not Reportable 01/10/21 04:01 Elliptocytes Not Reportable 01/10/21 04:01 Acanthocytes (Spur) Not Reportable 01/10/21 04:01 [place] Not Reportable 01/10/21 04:01 Hemoglobin C Crystals Not Reportable 01/10/21 04:01 Schistocytes Not Reportable 01/10/21 04:01 Malaria parasites Not Reportable 01/10/21 04:01 [place] Bodies Not Reportable 01/10/21 04:01 Hem Pathologist Commnt No 01/10/21 04:01 PT 15.4 Sec. (12.2-14.9) H 01/10/21 04:01 INR 1.17 (0.87-1.13) H 01/10/21 04:01 APTT 40.2 Sec. (24.2-36.6) H 01/10/21 04:01 Fibrinogen 817 mg/dl (211-480) H 01/10/21 04:01 ABG pH 7.484 (7.320-7.450) H 01/13/21 03:14 POC ABG pCO2 34.8 mmHg (32.0-48.0) 01/13/21 03:14 ABG pCO2 37.9 mm Hg 01/05/21 03:50 POC ABG pO2 104.0 mmHg (83-108) 01/13/21 03:14 ABG pO2 136.8 mm Hg (80.0-90.0) H 01/05/21 03:50 POC ABG HCO3 25.6 01/13/21 03:14 ABG HCO3 22.4 mmol/L (20.0-26.0) 01/05/21 03:50 ABG O2 Saturation 98.3 (0-100) 01/13/21 03:14 ABG O2 Content 9.8 (0.0-44) 01/05/21 03:50 POC ABG Base Excess 2.1 01/13/21 03:14 ABG Base Excess -2.3 mmol/L (-2.0-3.0) L 01/05/21 03:50 ABG Hemoglobin 8.4 (12.0-17.5) L 01/13/21 03:14 ABG Oxyhemoglobin 97.0 (94-98) 01/13/21 03:14 ABG Carboxyhemoglobin 1.5 % (0.0-5.0) 01/05/21 03:50 ABG Methemoglobin 0.3 (0.0-1.5) 01/13/21 03:14 ABG Sodium 134.4 mmol/L (136.0-145.0) L 01/13/21 03:14 ABG Potassium 3.1 mmol/L (3.40-4.50) L 01/13/21 03:14 ABG Chloride 99.0 mmol/L (98-107) 01/13/21 03:14 ABG Glucose 117 mg/dL (65-95) H 01/13/21 03:14 Oxyhemoglobin 96.7 % (95.0-99.0) 01/05/21 03:50 Carboxyhemoglobin 1.0 (0.5-1.5) 01/13/21 03:14 FiO2 50 % 01/05/21 03:50 FiO2 % 35.0 01/13/21 03:14 Sodium 156 mmol/L (137-145) H 01/19/21 07:39 Potassium 3.2 mmol/L (3.6-5.0) L 01/19/21 07:39 Chloride 115.4 mmol/L (98-107) H 01/19/21 07:39 Carbon Dioxide 27 mmol/L (22-30) 01/19/21 07:39 Anion Gap 17 mmol/L 01/19/21 07:39 BUN 50 mg/dL (9-20) H 01/19/21 07:39 Creatinine 1.6 mg/dL (0.8-1.3) H 01/19/21 07:39 Estimated GFR 44 ml/min 01/19/21 07:39 BUN/Creatinine Ratio 31 % 01/19/21 07:39 Glucose 108 mg/dL (75-100) H 01/19/21 07:39 POC Glucose 101 mg/dL (70-105) 01/19/21 05:26 Lactic Acid 1.70 mmol/L (0.7-2.0) 12/20/20 16:20 Calcium 8.1 mg/dL (8.4-10.2) L 01/19/21 07:39 Ionized Calcium 3.3 mg/dL (4.8-5.6) L 12/27/20 14:40 Phosphorus 4.40 mg/dL (2.5-4.5) 01/17/21 04:30 Magnesium 1.50 mg/dL (1.7-2.3) L 01/19/21 07:39 Total Bilirubin 0.50 mg/dL (0.1-1.2) 01/16/21 04:30 AST 19 units/L (5-40) 01/16/21 04:30 ALT 18 units/L (7-56) 01/16/21 04:30 Alkaline Phosphatase 118 units/L (35-129) 01/16/21 04:30 Troponin T < 0.010 ng/mL (0.00-0.029) 12/20/20 13:58 Total Protein 6.4 g/dL (6.3-8.2) 01/16/21 04:30 Albumin 2.1 g/dL (3.9-5) L 01/16/21 04:30 Albumin/Globulin Ratio 0.5 % 01/16/21 04:30 Triglycerides 216 mg/dL (2-149) H 01/17/21 04:30 Arterial Blood Glucose 117 mg/dL (65-95) H 01/13/21 03:14 Arterial Blood Ionized Calcium 4.5 mg/dL (4.6-5.3) L 01/13/21 03:14 Urine Color Yellow (Yellow) 01/16/21 Unknown Urine Turbidity Turbid (Clear) 01/16/21 Unknown Urine pH 6.0 (5.0-7.0) 01/16/21 Unknown Ur Specific [place] 1.010 (1.003-1.030) 01/16/21 Unknown Urine Protein 100 mg/dl mg/dL (Negative) 01/16/21 Unknown Urine Glucose (UA) Neg mg/dL (Negative) 01/16/21 Unknown Urine Ketones Neg mg/dL (Negative) 01/16/21 Unknown Urine Blood Mod (Negative) 01/16/21 Unknown Urine Nitrite Neg (Negative) 01/16/21 Unknown Urine Bilirubin Neg (Negative) 01/16/21 Unknown Urine Urobilinogen < 2.0 mg/dL (<2.0) 01/16/21 Unknown Ur Leukocyte Esterase Lg (Negative) 01/16/21 Unknown Urine WBC (Auto) > 182.0 /HPF (0.0-6.0) H 01/16/21 Unknown Urine RBC (Auto) 154.0 /HPF (0.0-6.0) 01/16/21 Unknown U Epithel Cells (Auto) < 1.0 /HPF (0-13.0) 12/20/20 Unknown Urine Bacteria (Auto) 4+ /HPF (Negative) 01/16/21 Unknown Urine WBC Clumps 3+ /HPF 01/16/21 Unknown Ur Renal Epithelial Cell 8 /LPF 01/16/21 Unknown Triple Phos Crystals 2+ 12/23/20 12:15 Hyaline Casts 11 /LPF 01/16/21 Unknown Urine Mucus Few /HPF 01/16/21 Unknown Urine Eosinophils None seen (None Seen) 12/23/20 12:15 Urine Creatinine 78.1 mg/dL (0.1-20.0) H 12/23/20 12:15 Urine Sodium 13 mmol/L 12/23/20 12:15 Fraction Sodium Excret 0.2 12/23/20 12:15 Random Vancomycin 5.8 ug/mL (0-40.0) 01/17/21 04:30 Coronavirus (PCR) Negative (Negative) 12/21/20 Unknown Hepatitis A IgM Ab Non-reactive (NonReactive) 12/30/20 14:40 Hep Bs Antigen Non-reactive (Negative) 12/30/20 14:40 Hep B Core IgM Ab Non-reactive (NonReactive) 12/30/20 14:40 Hepatitis C Antibody Non-reactive (NonReactive) 12/30/20 14:40 Blood Type A NEGATIVE 01/06/21 11:00 Antibody Screen Negative 01/06/21 11:00 Crossmatch See Detail 01/06/21 11:00 Microbiology: Microbiology 01/16/21 15:24 Abdomen Wound Culture - Preliminary Pseudomonas Aeruginosa Gram Negative Jose Enrique#2 01/16/21 04:40 Peripheral/Venous Blood Culture - Preliminary Gram Negative Jose Enrique Haley/IV: Voiding Method Indwelling Catheter Active Medications - Current Medications Current Medications: Generic Name Dose Route Start Last Admin Trade Name Freq PRN Reason Stop Dose Admin Acetaminophen 650 mg 01/16/21 03:57 01/18/21 11:04 Acetaminophen 325 Mg/10.15 Ml Oral Liqd Unit Dose FEEDTUBE 650 mg Q6H PRN Administration Non Cardiac Pain or Temp>100.5 Lipase/Protease/Amylase 1 each 01/07/21 08:44 Lipase 10,500/Protease 25,000/Amylase 43,750 (Units) Dr Maharaj FEEDTUBE PRN PRN For Clogged Feeding Tube Dextrose 50 ml 12/24/20 10:49 Dextrose 50% In Water (25gm) 50 Ml Syringe IV Q30MIN PRN Hypoglycemia Protocol Famotidine 20 mg 01/17/21 10:00 01/19/21 09:34 Famotidine 20 Mg Tab PO 20 mg BID ASCENCION Administration Fentanyl 1 applic 01/11/21 14:00 01/17/21 10:41 Fentanyl 50 Mcg/Hr Patch 72hr TD 1 applic Q3D ASCENCION Administration Heparin Sodium (Porcine) 5,000 unit 01/06/21 14:00 01/19/21 06:11 Heparin 5,000 Unit/1 Ml Vial SUB-Q 5,000 unit Q8HR ASCENCION Administration Hydromorphone HCl 0.5 mg 01/12/21 10:10 01/17/21 15:00 Hydromorphone 1 Mg/1 Ml Inj IV 0.5 mg Q4H PRN Administration Pain , Severe (7-10) Hydromorphone HCl 0.25 mg 01/12/21 10:11 01/15/21 15:40 Hydromorphone 1 Mg/1 Ml Inj IV 0.25 mg Q4H PRN Administration Pain, Moderate (4-6) Hydrophilic Ointment 1 applic 12/20/20 21:58 Lip Therapy Vaseline TP Q2HR PRN Dry Lips Propofol 1,000 mg in 100 mls @ 3.606 mls/hr 12/20/20 22:00 01/19/21 08:52 Diprivan 10 Mg/Ml IV 10 mcg/kg/min TITR ASCENCION 7.212 mls/hr Titration Protocol 5 MCG/KG/MIN Dexmedetomidine HCl 1,000 mcg/ 260 mls @ 7.322 mls/hr 01/15/21 01:00 01/19/21 06:10 Sodium Chloride IV 1.2 mcg/kg/hr TITRATE ASCENCION 43.93 mls/hr Administration Protocol 0.2 MCG/KG/HR Potassium Chloride 20 meq/ 1,010 mls @ 125 mls/hr 01/19/21 09:30 Dextrose IV 01/21/21 17:35 DIRECT ASCENCION MEROPENEM/NS 1 GRAM/100 ML 1 gram in 100 mls @ 100 mls/hr 01/19/21 10:00 01/19/21 09:35 Merrem/Ns 1 Gram/100 Ml IV 100 mls/hr Q8H ASCENCION Administration Protocol Magnesium Sulfate 2 gm in 50 mls @ 25 mls/hr 01/19/21 09:37 Magnesium Sulfate 2gm/50ml IV 01/19/21 11:36 ONCE ONE Magnesium Sulfate 2 gm in 50 mls @ 25 mls/hr 01/19/21 12:30 Magnesium Sulfate 2gm/50ml IV 01/19/21 14:29 ONCE ONE Potassium Chloride 20 meq in 100 mls @ 100 mls/hr 01/19/21 09:46 Kcl 20meq/100ml IV 01/19/21 11:45 Q1H ASCENCION Insulin Human Regular 0 units 12/28/20 00:00 01/19/21 06:13 Insulin Regular, Human 100 Units/1 Ml SUB-Q Not Given Q6H [facility] Protocol Metoprolol Tartrate 5 mg 01/14/21 13:37 01/15/21 12:42 Metoprolol Tartrate 5 Mg/5 Ml Inj IV 5 mg Q6H PRN Administration SBP >/=160 Multi-Ingred Cream/Lotion/Oil/Oint 1 applic 12/20/20 21:58 01/03/21 01:13 Mineral Oil/Petrolatum, White Ophth Oint 3.5 Gm OU 1 applic Q4HR PRN Administration Dry Eye(s) Simple Syrup 15 ml 01/07/21 08:44 Simple Syrup 15 Ml FEEDTUBE PRN PRN Hypoglycemia Sodium Bicarbonate 325 mg 01/07/21 08:44 Sodium Bicarbonate 325 Mg Tab FEEDTUBE PRN PRN For Clogged Feeding Tube Sodium Chloride 10 ml 12/20/20 22:00 01/19/21 00:35 Sodium Chloride 0.9% 10 Ml Flush Syringe IV 10 ml BID ASCENCION Administration Sodium Chloride 10 ml 12/20/20 16:42 01/17/21 06:01 Sodium Chloride 0.9% 10 Ml Flush Syringe IV 10 ml PRN PRN Administration LINE FLUSH Nutrition/Malnutrition Assess - Dietary Evaluation Nutrition/Malnutrition Findings: Nutrition Notes Start: 12/21/20 09:06 Freq: Status: Active Protocol: Document 01/18/21 13:09 CW (Rec: 01/18/21 13:19 CW [id number]) Nutrition Notes Initial or Follow up Reassessment Current Diagnosis Acute Kidney Injury,Coronary Artery Disease,Sepsis, Hypertension,Small Bowel Obstruction,Hyperlipidemia Other Pertinent Diagnosis gangrenous small bowel, s/p small bowel ressection, peritonitis Current Diet Nepro 1.8 at 40 ml/hr Labs/Tests Na 153 K 3.3 BUN 55 Cr 1.9 Pertinent Medications KCl 20 mEq in 1/2NS Propofol at 10.818 ml/hr (285 kcal) KCL 40 mEq ducolax Height 6 ft Weight 102.2 kg [place] Body Weight (kg) 80.90 BMI 30.5 Weight change and time frame -40% weight change x 19 days Weight Status Obese Subjective/Other Information F/U for TF tolerance. Pt remains on mechanical vent. Weight is trending downwards. Per TELETYPIST pt is having diarrhea, ducolax d/cd and fiber ordered . If diarrhea persists, will recommend changing TF. Percent of energy/protein needs met: 100%/44% Burn Absent Trauma Absent Current % PO Negligible Minimum of two criteria No #2 Nutrition Diagnosis Increased nutrient needs ( specify in comment below) Diagnosis Progress(for reassessment Continues documentation) #1 Nutrition Diagnosis Inadequate oral intake Diagnosis Progress(for reassessment Continues documentation) Is patient on ventilator? Yes Is Patient Ambulatory and/or Out of Bed No REE-([facility]-confined to bed) 2254.440 Kcal/Kg value to use for calculation 15 Approximate Energy Requirements Using 1533 kcal/Kg Calculation Used for Recommendations Kcal/kg Additional Notes Pro needs >162g(>2g/kgIBW: 80. 90) Fluid needs per MD. Nutrition Intervention Change Diet Order: Increase flush; continue TF Nutrition Support: Nepro 40 ml/hr is reached. Flush 175 ml q4h or per MD. Increase flush to 350 ml q4h Kcal 1,728 Protein (gm) 72 Fluid (mL) 779 Goal #1 TF tolerance Goal #2 Meet at least 75% of kcal and protein needs via TF Follow-Up By: 01/20/21 Additional Comments F/U for TF tolerance; weight; need for TF change; renal related labs - Attestation Statement I have reviewed and agreed w/ Malnutrition eval & tx plan: Yes
[2021-01-19] MEDS: POTASSIUM CHLORIDE 20 MEQ 20 MEQ/100 ML BAG IV SCH ×2 (10:24→12:07)
--- NOTE | 2021-01-19 10:26 | Progress Note ---
Assessment and Plan Cultures: 12/20/2020 blood culture: No growth 12/20/2020 urine culture: Usual skin giorgio 12/20/2020 tracheal aspirate culture: Mucor 01/16/2021 blood culture: GNR 01/16/2021 abdominal wound culture: Pseudomonas, GNR A/P: 60-year-old male with obesity, hypertension, tobacco abuse, coronary artery disease, admitted to the hospital on 12/20/2020 with: #Fever, new sepsis secondary to GNR bacteremia: Source could be uri ne/line/abdominal wound. UA with significant pyuria. #Initial septic shock: Resolved. Secondary to intra-abdominal source, peritonitis. Patient with necrotic bowel secondary to incarcerated ventral hernia. Status post exploratory laparotomy, extensive adhesiolysis, small bowel resection and peritoneal lavage along with ABThera VAC placement on 12/20/2020, replacement 12/29/2020. Off pressors. Last surgery abdomen closure with mesh 01/02/2021. Repeat CT 01/09/21 with large organized but bland appearing reactive fluid collection in anterior abdomen - seroma v/s hematoma. #JONI: Renally dose antibiotics. Was requiring hemodialysis, nephrology following. #Morbid obesity #Mucor in tracheal aspirate is likely colonization. No treatment needed currently. Recs: -Follow-up blood cultures, wound, urine cultures -persistent fever in spite of IV Meropenem, hence may need to consider CT abdomen and pelvis (preferably with IV contrast if OK with nephrology, patient recovering from HD requiring JONI) -wound care for lower abdominal wound Lissette Rizzo MD, FACP [facility] ([facility] O: [phone] F: [phone] Subjective Date of service: 01/19/21 Principal diagnosis: SBO and necrosis of large part of small intestine Interval history: Persistent fevers. Remains on the vent. Objective - Exam Narrative Exam: Physical Exam: Constitutional: sedated, intubated, on the vent Head, Ears, Nose: Normocephalic, atraumatic. External ears, nose normal Eyes: Conjunctivae/corneas clear. No icterus. No ptosis. Neck: intubated Oral: intubated Cardiovascular: S1, S2 + Respiratory: AE fair bilaterally and equal GI: midline dressing +, lower part with some slough, abdominal binder +, bowel sounds + drains + Musculoskeletal: scrotal edema Skin: No rash or abscess Hem/Lymphatic: No palpable cervical or supraclavicular nodes. No lymphangitis Psych: no agitation Neurological: sedated, intubated, on the vent, exam limited - Constitutional Vitals: Vital Signs Temp Pulse Resp BP Pulse Ox 98.3 F 89 17 134/74 100 01/19/21 08:00 01/19/21 08:33 01/19/21 06:45 01/19/21 08:33 01/19/21 08:33 Temperature -Last 24 Hours Temperature 98.3 F Temperature 100.4 F Temperature 101.0 F Temperature 101.4 F Temperature 102.0 F Temperature 102 F Temperature 102.1 F - Labs CBC & Chem 7: 01/19/21 07:39 01/19/21 07:39 Labs: Abnormal lab results 01/18/21 01/18/21 01/19/21 Range/Units 10:37 21:00 05:00 RBC 2.64 L (3.65-5.03) M/mm3 Hgb 7.8 L (11.8-15.2) gm/dl Hct 22.7 L (35.5-45.6) % RDW 16.8 H (13.2-15.2) % ABG pH 7.512 H (7.320-7.450) POC ABG pO2 47.8 L (83-108) mmHg ABG Hemoglobin 8.9 L (12.0-17.5) ABG Oxyhemoglobin 83.3 L (94-98) ABG Sodium 151.5 H (136.0-145.0) mmol/L ABG Potassium 2.9 L (3.40-4.50) mmol/L ABG Chloride 117.0 H (98-107) mmol/L ABG Glucose 111 H (65-95) mg/dL Sodium (137-145) mmol/L Potassium 3.4 L (3.6-5.0) mmol/L Chloride (98-107) mmol/L BUN (9-20) mg/dL Creatinine (0.8-1.3) mg/dL Glucose (75-100) mg/dL Calcium (8.4-10.2) mg/dL Magnesium (1.7-2.3) mg/dL Arterial Blood Glucose 111 H (65-95) mg/dL Arterial Blood Ionized Calcium 4.3 L (4.6-5.3) mg/dL 01/19/21 01/19/21 Range/Units 07:39 07:39 RBC 2.82 L (3.65-5.03) M/mm3 Hgb 8.2 L (11.8-15.2) gm/dl Hct 24.6 L (35.5-45.6) % RDW 16.8 H (13.2-15.2) % ABG pH (7.320-7.450) POC ABG pO2 (83-108) mmHg ABG Hemoglobin (12.0-17.5) ABG Oxyhemoglobin (94-98) ABG Sodium (136.0-145.0) mmol/L ABG Potassium (3.40-4.50) mmol/L ABG Chloride (98-107) mmol/L ABG Glucose (65-95) mg/dL Sodium 156 H (137-145) mmol/L Potassium 3.2 L (3.6-5.0) mmol/L Chloride 115.4 H (98-107) mmol/L BUN 50 H (9-20) mg/dL Creatinine 1.6 H (0.8-1.3) mg/dL Glucose 108 H (75-100) mg/dL Calcium 8.1 L (8.4-10.2) mg/dL Magnesium 1.50 L (1.7-2.3) mg/dL Arterial Blood Glucose (65-95) mg/dL Arterial Blood Ionized Calcium (4.6-5.3) mg/dL
[2021-01-19] MEDS: DEXTROSE 5% IN WATER 1,000 ML with POTASSIUM CHLORIDE 20 MEQ IV SCH ×2 (10:41→19:48)
--- NOTE | 2021-01-19 11:22 | Progress Note ---
Assessment and Plan 60 y/o male with abdominal catastrophe, s/p ex-lap with open abdomen, ventilated for pain control and support. 01/19/21: Discussed the patient on rounds with nurse at bedside and then with rest Interdisciplinary team. The persistent fever is bothersome, but it appears that we have a source from this abdominal wound. The ID docs have changed abx therapy to reflect this. Despite the patient having large amounts of urine and scrotal edema, will go ahead and remove the haley as this still could be a potential source for infection and persistent fever. Hemodynamically the patient is stable and we are treating with abx. I have no objection to discharge to LTACH facillity as long as they are comfortable with the transfer. We have restarted the scheduled pain meds to see if this can get him off all continued sedation. Agree with fiber and modification of tube feeds to help with diarrhea. Prognosis remains guarded. 01/18/21: Ok with transfer to LTACH. Spoke with nursing today about removal of vascath and changing of haley. Will be done. Abx per ID. asked CAREER REPRESENTATIVE to speak with surgery in regards to wound if any further therapy is needed. Defer to renal in regards to further therapy for electrolytes. 01/17/21: Will discuss renal but most likely vascath should be removed. Abx per ID. Renal has requested the haley stay in for urine output measurement and I agree. Waiting to here from insurer about LTACH as patient will need it for vent recovery and weaning. Monitor BP closely, may need to start replacing fluids 1:1. Will defer to renal on type of fluid given electrolyte imbalances. Prognosis still remains guarded. 01/16/21: Follow up blood cultures from last night. need to send ua as well. Renal holding HD today, hopeful patient is in the diuretic phase of ATN. Will have RT place patient on PSV trial today to see how he does. Hold on abx therapy for right now. If cultures come back positive, will need to remove right IJ vascath which was just placed on Saturday at the suggestion of infection control and infectious days. completed letter for insurance for patient today, hopeful will be LTACH approved soon. 01/13/21: Place IJ vascath today. Added PRN dilaudid on lebron of scheduled dilaudid. Goal is to not put patient back on continuous drip for pain so that we can facilitate weaning. needs peer to peer for LTACH approval. Continue supportive measures. 01/12/21: Patient getting dialysis today. Continue to control pain, added PRN dilauded on top of scheduled dosing as patient still gets very agitated off diprovan. Will discuss with renal plans for future HD as ID and Infection cont rol are very concerned about the groin catheter. If permanent dialysis then will ask that IR place permcath. if they feel intermittent, then will place IJ and remove femoral vascath. 01/11/21: Will increase pain regimen. Scheduled the dilaudid to q4 and add a fent patch. Would like to avoid drip as we are trying to actively wean patient from mechanical ventilation. Spoke with CM who states LTACH has accepted patient but we are waiting on insurance authorization. HgB is stable this am and reviewed surgery and IR recs. I do no think the area of fluid needs to be sampled. 01/10/21: Spoke with surgery this am about CT findings. Will discuss with IR their thoughts on fluid. Not concerned about infection in that area. Main reason for CT was to see if we could figure out where blood was going as it was coming out of his bottom or NG contents. This is appears to be something small and slow, like a venous issues. Hopefully it has sealed off at this time. HgB is up to 8 this am patient did not get blood on yesterday. Off fent now, will continue to wean Diprovan and Precedex as tolerated. Spoke with CM and asked to send out to LTACH's but will steal try to aggressively wean. Making good urine, hopeful kidney's will recover. Will ask renal about other ways to remove volume in third spacing (albumin, lasix etc). Prognosis still remains guarded. Continue TPN for now. 01/09/21: Will obtain contrasted CT of abdomen and pelvis to look for potential pockets of blood or bleeding. Spoke with renal and they feel kidneys are recovering but ok with HD tomorrow if needed post dye load. Will attempt to wean Fent more and use prn dilaudid. Will start reglan to help with gut motility. Hopeful to be off TPN soon. Once sedation is off, can start SBT's. CCT 31 minutes. Subjective Date of service: 01/19/21 Principal diagnosis: SBO and necrosis of large part of small intestine Interval history: Continues to have fever. All central lines removed but still has haley. Also not seeing a urine culture that should have been done with UA. Pseudomonas has grown out of wound. Patient awake and alert, following commands. Down to Diprovan 5. Still on Precedex. Electrolytes remain imbalance. Objective Vital Signs - 12hr 01/18/21 01/18/21 01/18/21 23:15 23:30 23:45 Temperature Pulse Rate 89 84 90 Pulse Rate [ From Monitor] Respiratory 21 27 H 28 H Rate Blood Pressure 136/85 143/83 148/82 O2 Sat by Pulse 100 100 100 Oximetry 01/19/21 01/19/21 01/19/21 00:00 00:07 00:15 Temperature 101.0 F H Pulse Rate 87 89 88 Pulse Rate [ 86 From Monitor] Respiratory 17 27 H Rate Blood Pressure 150/85 150/85 162/84 O2 Sat by Pulse 100 100 100 Oximetry 01/19/21 01/19/21 01/19/21 00:30 00:45 01:00 Temperature Pulse Rate 88 86 87 Pulse Rate [ From Monitor] Respiratory 20 25 H 27 H Rate Blood Pressure 140/79 140/77 144/78 O2 Sat by Pulse 100 100 100 Oximetry 01/19/21 01/19/21 01/19/21 01:15 01:30 01:45 Temperature Pulse Rate 85 85 88 Pulse Rate [ From Monitor] Respiratory 28 H 28 H 26 H Rate Blood Pressure 138/79 142/78 143/80 O2 Sat by Pulse 100 100 100 Oximetry 01/19/21 01/19/21 01/19/21 02:00 02:15 02:30 Temperature Pulse Rate 86 88 86 Pulse Rate [ From Monitor] Respiratory 29 H 21 25 H Rate Blood Pressure 146/85 143/84 146/80 O2 Sat by Pulse 100 100 100 Oximetry 01/19/21 01/19/21 01/19/21 02:45 03:00 03:15 Temperature Pulse Rate 87 89 88 Pulse Rate [ From Monitor] Respiratory 25 H 28 H 25 H Rate Blood Pressure 153/84 163/96 151/87 O2 Sat by Pulse 100 100 100 Oximetry 01/19/21 01/19/21 01/19/21 03:31 03:43 03:45 Temperature 100.4 F H Pulse Rate 89 86 Pulse Rate [ From Monitor] Respiratory 25 H 25 H Rate Blood Pressure 145/83 155/83 O2 Sat by Pulse 100 100 Oximetry 01/19/21 01/19/21 01/19/21 03:50 04:00 04:15 Temperature Pulse Rate 84 89 89 Pulse Rate [ 89 From Monitor] Respiratory 16 24 Rate Blood Pressure 155/83 127/87 122/83 O2 Sat by Pulse 100 100 100 Oximetry 01/19/21 01/19/21 01/19/21 04:30 04:45 05:00 Temperature Pulse Rate 88 90 95 H Pulse Rate [ From Monitor] Respiratory 20 25 H 29 H Rate Blood Pressure 121/88 121/88 157/95 O2 Sat by Pulse 94 97 98 Oximetry 01/19/21 01/19/21 01/19/21 05:15 05:30 05:45 Temperature Pulse Rate 90 90 96 H Pulse Rate [ From Monitor] Respiratory 25 H 24 Rate Blood Pressure 156/85 161/83 161/83 O2 Sat by Pulse 95 97 96 Oximetry 01/19/21 01/19/21 01/19/21 06:01 06:15 06:30 Temperature Pulse Rate 96 H 92 H 88 Pulse Rate [ From Monitor] Respiratory 28 H 23 29 H Rate Blood Pressure 161/83 126/70 120/63 O2 Sat by Pulse 97 97 97 Oximetry 01/19/21 01/19/21 01/19/21 06:45 08:00 08:33 Temperature 98.3 F Pulse Rate 89 89 Pulse Rate [ From Monitor] Respiratory 17 Rate Blood Pressure 125/61 134/74 O2 Sat by Pulse 99 100 Oximetry Constitutional: other (critically ill on ventilator and back on sedation) Eyes: non-icteric ENT: oropharynx moist Neck: supple Effort: normal Ascultation: Bilateral: other (coarse BS bilaterally) Cardiovascular: other (tachy, RR; no mrg) Gastrointestinal: other (abdomen open) Integumentary: normal Extremities: no cyanosis, no edema, pink and warm Neurologic: other (sedated) CBC and BMP: 01/19/21 07:39 01/19/21 07:39 ABG, PT/INR, D-dimer: ABG ABG pH 7.512 (7.320-7.450) H 01/19/21 05:00 POC ABG pCO2 32.5 mmHg (32.0-48.0) 01/19/21 05:00 ABG pCO2 37.9 mm Hg 01/05/21 03:50 POC ABG pO2 47.8 mmHg (83-108) L 01/19/21 05:00 ABG pO2 136.8 mm Hg (80.0-90.0) H 01/05/21 03:50 POC ABG HCO3 25.5 01/19/21 05:00 ABG O2 Saturation 84.4 (0-100) 01/19/21 05:00 PT/INR, D-dimer PT 15.4 Sec. (12.2-14.9) H 01/10/21 04:01 INR 1.17 (0.87-1.13) H 01/10/21 04:01 Abnormal lab findings: Abnormal Labs 12/20/20 12/20/20 12/20/20 13:58 13:58 13:58 WBC 41.1 H* RBC 5.59 H Hgb 16.2 H Hct 47.7 H MCV MCHC RDW 15.5 H Plt Count 486 H Lymph % (Auto) Eos % (Auto) Lymph # (Auto) Eos # (Auto) Seg Neutrophils % Seg Neuts % (Manual) Lymphocytes % (Manual) Seg Neutrophils # Seg Neutrophils # Man Lymphocytes # (Manual) Monocytes # (Manual) PT INR APTT Fibrinogen ABG pH POC ABG pCO2 POC ABG pO2 ABG pO2 ABG Base Excess ABG Hemoglobin ABG Oxyhemoglobin ABG Sodium ABG Potassium ABG Chloride ABG Glucose Carboxyhemoglobin Sodium 130 L Potassium Chloride 80.7 L Carbon Dioxide BUN 37 H Creatinine Glucose 101 H POC Glucose Lactic Acid 3.20 H* Calcium Ionized Calcium Phosphorus Magnesium AST Alkaline Phosphatase 142 H Total Protein 6.2 L Albumin 2.2 L Triglycerides Arterial Blood Glucose Arterial Blood Ionized Calcium Urine WBC (Auto) Urine Creatinine Crossmatch 12/20/20 12/20/20 12/20/20 13:58 20:35 21:30 WBC RBC Hgb Hct MCV MCHC RDW Plt Count Lymph % (Auto) Eos % (Auto) Lymph # (Auto) Eos # (Auto) Seg Neutrophils % Seg Neuts % (Manual) Lymphocytes % (Manual) Seg Neutrophils # Seg Neutrophils # Man Lymphocytes # (Manual) Monocytes # (Manual) PT INR APTT 49.4 H Fibrinogen ABG pH 7.313 L POC ABG pCO2 POC ABG pO2 ABG pO2 104.4 H ABG Base Excess ABG Hemoglobin ABG Oxyhemoglobin ABG Sodium ABG Potassium ABG Chloride ABG Glucose Carboxyhemoglobin Sodium Potassium Chloride Carbon Dioxide BUN Creatinine Glucose POC Glucose 122 H Lactic Acid Calcium Ionized Calcium Phosphorus Magnesium AST Alkaline Phosphatase Total Protein Albumin Triglycerides Arterial Blood Glucose Arterial Blood Ionized Calcium Urine WBC (Auto) Urine Creatinine Crossmatch 12/21/20 12/21/20 12/21/20 03:06 08:14 08:14 WBC 23.9 H RBC Hgb Hct MCV MCHC RDW 15.7 H Plt Count Lymph % (Auto) Eos % (Auto) Lymph # (Auto) Eos # (Auto) Seg Neutrophils % Seg Neuts % (Manual) 91.0 H Lymphocytes % (Manual) 3.0 L Seg Neutrophils # Seg Neutrophils # Man 21.7 H Lymphocytes # (Manual) 0.7 L Monocytes # (Manual) 1.4 H PT INR APTT Fibrinogen ABG pH 7.464 H POC ABG pCO2 POC ABG pO2 202.9 H ABG pO2 ABG Base Excess ABG Hemoglobin ABG Oxyhemoglobin ABG Sodium 133.7 L ABG Potassium ABG Chloride ABG Glucose 122 H Carboxyhemoglobin Sodium Potassium Chloride Carbon Dioxide BUN 46 H Creatinine Glucose 103 H POC Glucose Lactic Acid Calcium 6.6 L D Ionized Calcium Phosphorus Magnesium AST Alkaline Phosphatase Total Protein 5.4 L Albumin 2.3 L Triglycerides Arterial Blood Glucose 122 H Arterial Blood Ionized Calcium 3.5 L Urine WBC (Auto) Urine Creatinine Crossmatch 12/21/20 12/21/20 12/22/20 17:18 21:28 04:45 WBC 22.9 H RBC Hgb Hct MCV MCHC RDW 15.7 H Plt Count Lymph % (Auto) Eos % (Auto) Lymph # (Auto) Eos # (Auto) Seg Neutrophils % Seg Neuts % (Manual) Lymphocytes % (Manual) Seg Neutrophils # Seg Neutrophils # Man Lymphocytes # (Manual) Monocytes # (Manual) PT INR APTT Fibrinogen ABG pH POC ABG pCO2 POC ABG pO2 ABG pO2 ABG Base Excess ABG Hemoglobin ABG Oxyhemoglobin ABG Sodium ABG Potassium ABG Chloride ABG Glucose Carboxyhemoglobin Sodium Potassium Chloride Carbon Dioxide BUN Creatinine Glucose POC Glucose 108 H Lactic Acid Calcium Ionized Calcium 4.1 L Phosphorus Magnesium AST Alkaline Phosphatase Total Protein Albumin Triglycerides Arterial Blood Glucose Arterial Blood Ionized Calcium Urine WBC (Auto) Urine Creatinine Crossmatch 12/22/20 12/22/20 12/22/20 04:45 05:00 11:38 WBC RBC Hgb Hct MCV MCHC RDW Plt Count Lymph % (Auto) Eos % (Auto) Lymph # (Auto) Eos # (Auto) Seg Neutrophils % Seg Neuts % (Manual) Lymphocytes % (Manual) Seg Neutrophils # Seg Neutrophils # Man Lymphocytes # (Manual) Monocytes # (Manual) PT INR APTT Fibrinogen ABG pH 7.462 H POC ABG pCO2 POC ABG pO2 ABG pO2 ABG Base Excess ABG Hemoglobin ABG Oxyhemoglobin ABG Sodium ABG Potassium ABG Chloride ABG Glucose 118 H Carboxyhemoglobin Sodium 146 H Potassium Chloride Carbon Dioxide BUN 45 H Creatinine Glucose 116 H POC Glucose 115 H Lactic Acid Calcium 6.9 L Ionized Calcium Phosphorus Magnesium AST Alkaline Phosphatase Total Protein Albumin Triglycerides Arterial Blood Glucose 118 H Arterial Blood Ionized Calcium 3.8 L Urine WBC (Auto) Urine Creatinine Crossmatch 12/22/20 12/23/20 12/23/20 23:26 04:43 04:45 WBC 22.2 H RBC Hgb Hct MCV MCHC RDW 16.1 H Plt Count Lymph % (Auto) Eos % (Auto) Lymph # (Auto) Eos # (Auto) Seg Neutrophils % Seg Neuts % (Manual) Lymphocytes % (Manual) Seg Neutrophils # Seg Neutrophils # Man Lymphocytes # (Manual) Monocytes # (Manual) PT INR APTT Fibrinogen ABG pH POC ABG pCO2 POC ABG pO2 ABG pO2 ABG Base Excess ABG Hemoglobin ABG Oxyhemoglobin ABG Sodium 147.4 H ABG Potassium ABG Chloride 112.0 H ABG Glucose 130 H Carboxyhemoglobin 0.4 L Sodium Potassium Chloride Carbon Dioxide BUN Creatinine Glucose POC Glucose 110 H Lactic Acid Calcium Ionized Calcium Phosphorus Magnesium AST Alkaline Phosphatase Total Protein Albumin Triglycerides Arterial Blood Glucose 130 H Arterial Blood Ionized Calcium 3.8 L Urine WBC (Auto) Urine Creatinine Crossmatch 12/23/20 12/23/20 12/23/20 04:45 05:17 11:22 WBC RBC Hgb Hct MCV MCHC RDW Plt Count Lymph % (Auto) Eos % (Auto) Lymph # (Auto) Eos # (Auto) Seg Neutrophils % Seg Neuts % (Manual) Lymphocytes % (Manual) Seg Neutrophils # Seg Neutrophils # Man Lymphocytes # (Manual) Monocytes # (Manual) PT INR APTT Fibrinogen ABG pH POC ABG pCO2 POC ABG pO2 ABG pO2 ABG Base Excess ABG Hemoglobin ABG Oxyhemoglobin ABG Sodium ABG Potassium ABG Chloride ABG Glucose Carboxyhemoglobin Sodium 154 H D Potassium Chloride 110.9 H Carbon Dioxide BUN 54 H Creatinine 1.8 H Glucose 115 H POC Glucose 116 H 130 H Lactic Acid Calcium 7.0 L Ionized Calcium Phosphorus Magnesium AST Alkaline Phosphatase Total Protein Albumin Triglycerides Arterial Blood Glucose Arterial Blood Ionized Calcium Urine WBC (Auto) Urine Creatinine Crossmatch 12/23/20 12/23/20 12/23/20 12:15 12:15 23:15 WBC RBC Hgb Hct MCV MCHC RDW Plt Count Lymph % (Auto) Eos % (Auto) Lymph # (Auto) Eos # (Auto) Seg Neutrophils % Seg Neuts % (Manual) Lymphocytes % (Manual) Seg Neutrophils # Seg Neutrophils # Man Lymphocytes # (Manual) Monocytes # (Manual) PT INR APTT Fibrinogen ABG pH POC ABG pCO2 POC ABG pO2 ABG pO2 ABG Base Excess ABG Hemoglobin ABG Oxyhemoglobin ABG Sodium ABG Potassium ABG Chloride ABG Glucose Carboxyhemoglobin Sodium 154 H Potassium Chloride Carbon Dioxide BUN Creatinine 1.5 H Glucose POC Glucose 132 H Lactic Acid Calcium Ionized Calcium Phosphorus Magnesium AST Alkaline Phosphatase Total Protein Albumin Triglycerides Arterial Blood Glucose Arterial Blood Ionized Calcium Urine WBC (Auto) Urine Creatinine 78.1 H Crossmatch 12/24/20 12/24/20 12/24/20 04:19 04:30 04:30 WBC 18.3 H RBC Hgb Hct MCV MCHC RDW 16.5 H Plt Count Lymph % (Auto) Eos % (Auto) Lymph # (Auto) Eos # (Auto) Seg Neutrophils % Seg Neuts % (Manual) Lymphocytes % (Manual) Seg Neutrophils # Seg Neutrophils # Man Lymphocytes # (Manual) Monocytes # (Manual) PT INR APTT Fibrinogen ABG pH POC ABG pCO2 POC ABG pO2 ABG pO2 ABG Base Excess ABG Hemoglobin ABG Oxyhemoglobin ABG Sodium 149.7 H ABG Potassium ABG Chloride 116.0 H ABG Glucose 180 H Carboxyhemoglobin Sodium 155 H Potassium Chloride 116.1 H Carbon Dioxide BUN 52 H Creatinine 1.5 H Glucose 175 H POC Glucose Lactic Acid Calcium 6.8 L Ionized Calcium Phosphorus Magnesium 3.00 H AST Alkaline Phosphatase Total Protein 5.7 L Albumin 1.8 L Triglycerides Arterial Blood Glucose 180 H Arterial Blood Ionized Calcium 3.7 L Urine WBC (Auto) Urine Creatinine Crossmatch 12/24/20 12/24/20 12/24/20 05:24 11:21 18:05 WBC RBC Hgb Hct MCV MCHC RDW Plt Count Lymph % (Auto) Eos % (Auto) Lymph # (Auto) Eos # (Auto) Seg Neutrophils % Seg Neuts % (Manual) Lymphocytes % (Manual) Seg Neutrophils # Seg Neutrophils # Man Lymphocytes # (Manual) Monocytes # (Manual) PT INR APTT Fibrinogen ABG pH POC ABG pCO2 POC ABG pO2 ABG pO2 ABG Base Excess ABG Hemoglobin ABG Oxyhemoglobin ABG Sodium ABG Potassium ABG Chloride ABG Glucose Carboxyhemoglobin Sodium Potassium Chloride Carbon Dioxide BUN Creatinine Glucose POC Glucose 153 H 154 H 133 H Lactic Acid Calcium Ionized Calcium Phosphorus Magnesium AST Alkaline Phosphatase Total Protein Albumin Triglycerides Arterial Blood Glucose Arterial Blood Ionized Calcium Urine WBC (Auto) Urine Creatinine Crossmatch 12/25/20 12/25/20 12/25/20 04:00 07:00 07:00 WBC 17.6 H RBC Hgb Hct MCV MCHC 31 L RDW 16.0 H Plt Count Lymph % (Auto) Eos % (Auto) Lymph # (Auto) Eos # (Auto) Seg Neutrophils % Seg Neuts % (Manual) Lymphocytes % (Manual) Seg Neutrophils # Seg Neutrophils # Man Lymphocytes # (Manual) Monocytes # (Manual) PT INR APTT Fibrinogen ABG pH POC ABG pCO2 POC ABG pO2 ABG pO2 ABG Base Excess ABG Hemoglobin ABG Oxyhemoglobin ABG Sodium 152.5 H ABG Potassium ABG Chloride 119.0 H ABG Glucose 136 H Carboxyhemoglobin Sodium Potassium Chloride Carbon Dioxide BUN Creatinine Glucose POC Glucose Lactic Acid Calcium Ionized Calcium Phosphorus Magnesium 2.70 H AST Alkaline Phosphatase Total Protein Albumin Triglycerides Arterial Blood Glucose 136 H Arterial Blood Ionized Calcium 3.7 L Urine WBC (Auto) Urine Creatinine Crossmatch 12/25/20 12/25/20 12/25/20 07:00 11:24 16:32 WBC RBC Hgb Hct MCV MCHC RDW Plt Count Lymph % (Auto) Eos % (Auto) Lymph # (Auto) Eos # (Auto) Seg Neutrophils % Seg Neuts % (Manual) Lymphocytes % (Manual) Seg Neutrophils # Seg Neutrophils # Man Lymphocytes # (Manual) Monocytes # (Manual) PT INR APTT Fibrinogen ABG pH POC ABG pCO2 POC ABG pO2 ABG pO2 ABG Base Excess ABG Hemoglobin ABG Oxyhemoglobin ABG Sodium ABG Potassium ABG Chloride ABG Glucose Carboxyhemoglobin Sodium 156 H Potassium Chloride 118.0 H Carbon Dioxide BUN 44 H Creatinine 1.7 H Glucose 126 H POC Glucose 110 H 126 H Lactic Acid Calcium 6.9 L Ionized Calcium Phosphorus Magnesium AST Alkaline Phosphatase Total Protein Albumin Triglycerides Arterial Blood Glucose Arterial Blood Ionized Calcium Urine WBC (Auto) Urine Creatinine Crossmatch 12/25/20 12/25/20 12/26/20 18:18 23:23 03:30 WBC RBC Hgb Hct MCV MCHC RDW Plt Count Lymph % (Auto) Eos % (Auto) Lymph # (Auto) Eos # (Auto) Seg Neutrophils % Seg Neuts % (Manual) Lymphocytes % (Manual) Seg Neutrophils # Seg Neutrophils # Man Lymphocytes # (Manual) Monocytes # (Manual) PT INR APTT Fibrinogen ABG pH POC ABG pCO2 POC ABG pO2 ABG pO2 ABG Base Excess ABG Hemoglobin 11.8 L ABG Oxyhemoglobin ABG Sodium ABG Potassium 4.7 H ABG Chloride 114.0 H ABG Glucose 132 H Carboxyhemoglobin Sodium 151 H Potassium Chloride 114.3 H Carbon Dioxide BUN 51 H Creatinine 2.6 H D Glucose 122 H POC Glucose 115 H Lactic Acid Calcium 6.4 L Ionized Calcium Phosphorus Magnesium AST Alkaline Phosphatase Total Protein Albumin Triglycerides Arterial Blood Glucose 132 H Arterial Blood Ionized Calcium 3.6 L Urine WBC (Auto) Urine Creatinine Crossmatch 12/26/20 12/26/20 12/26/20 04:55 06:01 06:01 WBC 21.6 H RBC Hgb Hct MCV MCHC 31 L RDW 16.5 H Plt Count 136 L Lymph % (Auto) Eos % (Auto) Lymph # (Auto) Eos # (Auto) Seg Neutrophils % Seg Neuts % (Manual) Lymphocytes % (Manual) Seg Neutrophils # Seg Neutrophils # Man Lymphocytes # (Manual) Monocytes # (Manual) PT INR APTT Fibrinogen ABG pH POC ABG pCO2 POC ABG pO2 ABG pO2 ABG Base Excess ABG Hemoglobin ABG Oxyhemoglobin ABG Sodium ABG Potassium ABG Chloride ABG Glucose Carboxyhemoglobin Sodium 173 H* D Potassium 6.1 H* D Chloride 137.0 H Carbon Dioxide BUN 73 H Creatinine 3.8 H Glucose 125 H POC Glucose 112 H Lactic Acid Calcium 6.2 L Ionized Calcium Phosphorus 5.70 H D Magnesium 2.90 H AST Alkaline Phosphatase Total Protein Albumin Triglycerides Arterial Blood Glucose Arterial Blood Ionized Calcium Urine WBC (Auto) Urine Creatinine Crossmatch 12/26/20 12/26/20 12/26/20 08:33 11:19 22:00 WBC RBC Hgb Hct MCV MCHC RDW Plt Count Lymph % (Auto) Eos % (Auto) Lymph # (Auto) Eos # (Auto) Seg Neutrophils % Seg Neuts % (Manual) Lymphocytes % (Manual) Seg Neutrophils # Seg Neutrophils # Man Lymphocytes # (Manual) Monocytes # (Manual) PT INR APTT Fibrinogen ABG pH POC ABG pCO2 POC ABG pO2 ABG pO2 ABG Base Excess ABG Hemoglobin ABG Oxyhemoglobin ABG Sodium ABG Potassium ABG Chloride ABG Glucose Carboxyhemoglobin Sodium 147 H D Potassium 5.8 H D Chloride 108.8 H Carbon Dioxide 21 L BUN 68 H 68 H Creatinine 3.8 H 4.1 H Glucose 144 H 154 H POC Glucose 144 H Lactic Acid Calcium 6.5 L 5.8 L* Ionized Calcium Phosphorus Magnesium AST 215 H Alkaline Phosphatase Total Protein 4.7 L Albumin 1.5 L Triglycerides Arterial Blood Glucose Arterial Blood Ionized Calcium Urine WBC (Auto) Urine Creatinine Crossmatch 12/26/20 12/26/20 12/27/20 23:13 Unknown 00:25 WBC RBC Hgb 11.1 L Hct MCV MCHC RDW Plt Count Lymph % (Auto) Eos % (Auto) Lymph # (Auto) Eos # (Auto) Seg Neutrophils % Seg Neuts % (Manual) Lymphocytes % (Manual) Seg Neutrophils # Seg Neutrophils # Man Lymphocytes # (Manual) Monocytes # (Manual) PT INR APTT Fibrinogen ABG pH POC ABG pCO2 POC ABG pO2 ABG pO2 ABG Base Excess ABG Hemoglobin ABG Oxyhemoglobin ABG Sodium ABG Potassium ABG Chloride ABG Glucose Carboxyhemoglobin Sodium Potassium Chloride Carbon Dioxide BUN Creatinine Glucose POC Glucose 163 H Lactic Acid Calcium Ionized Calcium Phosphorus 5.60 H Magnesium AST Alkaline Phosphatase Total Protein Albumin Triglycerides Arterial Blood Glucose Arterial Blood Ionized Calcium Urine WBC (Auto) Urine Creatinine Crossmatch 12/27/20 12/27/20 12/27/20 02:57 04:15 04:15 WBC 28.5 H RBC Hgb 11.2 L Hct MCV MCHC 31 L RDW 16.5 H Plt Count 130 L Lymph % (Auto) Eos % (Auto) Lymph # (Auto) Eos # (Auto) Seg Neutrophils % Seg Neuts % (Manual) Lymphocytes % (Manual) Seg Neutrophils # Seg Neutrophils # Man Lymphocytes # (Manual) Monocytes # (Manual) PT INR APTT Fibrinogen ABG pH 7.238 L POC ABG pCO2 POC ABG pO2 139.1 H ABG pO2 ABG Base Excess ABG Hemoglobin 11.2 L ABG Oxyhemoglobin ABG Sodium 133.8 L ABG Potassium 5.2 H ABG Chloride ABG Glucose 182 H Carboxyhemoglobin Sodium 136 L Potassium 6.0 H Chloride Carbon Dioxide 18 L BUN 68 H Creatinine 4.1 H Glucose 166 H POC Glucose Lactic Acid Calcium 6.2 L Ionized Calcium Phosphorus 7.30 H D Magnesium AST Alkaline Phosphatase Total Protein Albumin Triglycerides 164 H Arterial Blood Glucose 182 H Arterial Blood Ionized Calcium 3.4 L Urine WBC (Auto) Urine Creatinine Crossmatch 12/27/20 12/27/20 12/27/20 04:50 10:51 11:17 WBC RBC Hgb Hct MCV MCHC RDW Plt Count Lymph % (Auto) Eos % (Auto) Lymph # (Auto) Eos # (Auto) Seg Neutrophils % Seg Neuts % (Manual) Lymphocytes % (Manual) Seg Neutrophils # Seg Neutrophils # Man Lymphocytes # (Manual) Monocytes # (Manual) PT INR APTT Fibrinogen ABG pH POC ABG pCO2 POC ABG pO2 ABG pO2 ABG Base Excess ABG Hemoglobin ABG Oxyhemoglobin ABG Sodium ABG Potassium ABG Chloride ABG Glucose Carboxyhemoglobin Sodium Potassium Chloride Carbon Dioxide BUN Creatinine Glucose POC Glucose 140 H 113 H 154 H Lactic Acid Calcium Ionized Calcium Phosphorus Magnesium AST Alkaline Phosphatase Total Protein Albumin Triglycerides Arterial Blood Glucose Arterial Blood Ionized Calcium Urine WBC (Auto) Urine Creatinine Crossmatch 12/27/20 12/27/20 12/27/20 12:40 14:40 23:17 WBC RBC Hgb Hct MCV MCHC RDW Plt Count Lymph % (Auto) Eos % (Auto) Lymph # (Auto) Eos # (Auto) Seg Neutrophils % Seg Neuts % (Manual) Lymphocytes % (Manual) Seg Neutrophils # Seg Neutrophils # Man Lymphocytes # (Manual) Monocytes # (Manual) PT INR APTT Fibrinogen ABG pH POC ABG pCO2 POC ABG pO2 ABG pO2 ABG Base Excess ABG Hemoglobin ABG Oxyhemoglobin ABG Sodium ABG Potassium ABG Chloride ABG Glucose Carboxyhemoglobin Sodium 135 L Potassium Chloride Carbon Dioxide 21 L BUN 62 H Creatinine 3.8 H Glucose 132 H POC Glucose 130 H Lactic Acid Calcium 5.6 L* Ionized Calcium 3.3 L Phosphorus Magnesium AST Alkaline Phosphatase Total Protein Albumin Triglycerides Arterial Blood Glucose Arterial Blood Ionized Calcium Urine WBC (Auto) Urine Creatinine Crossmatch 12/28/20 12/28/20 12/28/20 05:36 07:08 07:28 WBC 27.2 H RBC 3.50 L Hgb 9.6 L Hct 30.8 L MCV MCHC 31 L RDW 16.1 H Plt Count 111 L Lymph % (Auto) Eos % (Auto) Lymph # (Auto) Eos # (Auto) Seg Neutrophils % Seg Neuts % (Manual) 95.0 H Lymphocytes % (Manual) Seg Neutrophils # Seg Neutrophils # Man 25.8 H Lymphocytes # (Manual) 0.0 L Monocytes # (Manual) 1.1 H PT INR APTT Fibrinogen ABG pH 7.200 L POC ABG pCO2 POC ABG pO2 67.2 L ABG pO2 ABG Base Excess ABG Hemoglobin 10.3 L ABG Oxyhemoglobin 89.6 L ABG Sodium 127.8 L ABG Potassium 5.1 H ABG Chloride ABG Glucose 132 H Carboxyhemoglobin 0.4 L Sodium Potassium Chloride Carbon Dioxide BUN Creatinine Glucose POC Glucose 128 H Lactic Acid Calcium Ionized Calcium Phosphorus Magnesium AST Alkaline Phosphatase Total Protein Albumin Triglycerides Arterial Blood Glucose 132 H Arterial Blood Ionized Calcium 3.5 L Urine WBC (Auto) Urine Creatinine Crossmatch 12/28/20 12/28/20 12/28/20 07:28 11:37 13:25 WBC RBC Hgb Hct MCV MCHC RDW Plt Count Lymph % (Auto) Eos % (Auto) Lymph # (Auto) Eos # (Auto) Seg Neutrophils % Seg Neuts % (Manual) Lymphocytes % (Manual) Seg Neutrophils # Seg Neutrophils # Man Lymphocytes # (Manual) Monocytes # (Manual) PT INR APTT Fibrinogen ABG pH POC ABG pCO2 POC ABG pO2 ABG pO2 ABG Base Excess ABG Hemoglobin ABG Oxyhemoglobin ABG Sodium ABG Potassium ABG Chloride ABG Glucose Carboxyhemoglobin Sodium 131 L 133 L Potassium 5.9 H 5.1 H Chloride 97.1 L Carbon Dioxide 15 L 21 L BUN 70 H 77 H Creatinine 4.0 H 4.4 H Glucose 118 H 140 H POC Glucose 135 H Lactic Acid Calcium 6.3 L 6.3 L Ionized Calcium Phosphorus 7.10 H Magnesium AST 144 H Alkaline Phosphatase Total Protein 4.8 L Albumin 1.3 L Triglycerides Arterial Blood Glucose Arterial Blood Ionized Calcium Urine WBC (Auto) Urine Creatinine Crossmatch 12/28/20 12/28/20 12/29/20 16:38 23:28 03:08 WBC RBC Hgb Hct MCV MCHC RDW Plt Count Lymph % (Auto) Eos % (Auto) Lymph # (Auto) Eos # (Auto) Seg Neutrophils % Seg Neuts % (Manual) Lymphocytes % (Manual) Seg Neutrophils # Seg Neutrophils # Man Lymphocytes # (Manual) Monocytes # (Manual) PT INR APTT Fibrinogen ABG pH 7.301 L POC ABG pCO2 POC ABG pO2 151.1 H ABG pO2 ABG Base Excess ABG Hemoglobin 8.7 L ABG Oxyhemoglobin 98.2 H ABG Sodium 123.4 L ABG Potassium ABG Chloride 97.0 L ABG Glucose 144 H Carboxyhemoglobin Sodium Potassium Chloride Carbon Dioxide BUN Creatinine Glucose POC Glucose 140 H 134 H Lactic Acid Calcium Ionized Calcium Phosphorus Magnesium AST Alkaline Phosphatase Total Protein Albumin Triglycerides Arterial Blood Glucose 144 H Arterial Blood Ionized Calcium 3.4 L Urine WBC (Auto) Urine Creatinine Crossmatch 12/29/20 12/29/20 12/29/20 05:20 05:20 06:01 WBC 21.0 H RBC 2.89 L Hgb 8.1 L Hct 25.5 L MCV MCHC RDW 16.1 H Plt Count 124 L Lymph % (Auto) Eos % (Auto) Lymph # (Auto) Eos # (Auto) Seg Neutrophils % Seg Neuts % (Manual) Lymphocytes % (Manual) Seg Neutrophils # Seg Neutrophils # Man Lymphocytes # (Manual) Monocytes # (Manual) PT INR APTT Fibrinogen ABG pH POC ABG pCO2 POC ABG pO2 ABG pO2 ABG Base Excess ABG Hemoglobin ABG Oxyhemoglobin ABG Sodium ABG Potassium ABG Chloride ABG Glucose Carboxyhemoglobin Sodium 131 L Potassium Chloride 93.4 L Carbon Dioxide BUN 79 H Creatinine 4.7 H Glucose 122 H POC Glucose 108 H Lactic Acid Calcium 5.5 L* Ionized Calcium Phosphorus 5.70 H Magnesium 1.60 L AST Alkaline Phosphatase Total Protein Albumin Triglycerides Arterial Blood Glucose Arterial Blood Ionized Calcium Urine WBC (Auto) Urine Creatinine Crossmatch 12/29/20 12/29/20 12/29/20 10:04 11:27 17:31 WBC RBC Hgb Hct MCV MCHC RDW Plt Count Lymph % (Auto) Eos % (Auto) Lymph # (Auto) Eos # (Auto) Seg Neutrophils % Seg Neuts % (Manual) Lymphocytes % (Manual) Seg Neutrophils # Seg Neutrophils # Man Lymphocytes # (Manual) Monocytes # (Manual) PT INR APTT Fibrinogen ABG pH POC ABG pCO2 POC ABG pO2 ABG pO2 ABG Base Excess ABG Hemoglobin ABG Oxyhemoglobin ABG Sodium ABG Potassium ABG Chloride ABG Glucose Carboxyhemoglobin Sodium Potassium Chloride Carbon Dioxide BUN Creatinine Glucose POC Glucose 107 H 112 H 110 H Lactic Acid Calcium Ionized Calcium Phosphorus Magnesium AST Alkaline Phosphatase Total Protein Albumin Triglycerides Arterial Blood Glucose Arterial Blood Ionized Calcium Urine WBC (Auto) Urine Creatinine Crossmatch 12/30/20 12/30/20 12/30/20 03:31 08:06 17:39 WBC RBC Hgb Hct MCV MCHC RDW Plt Count Lymph % (Auto) Eos % (Auto) Lymph # (Auto) Eos # (Auto) Seg Neutrophils % Seg Neuts % (Manual) Lymphocytes % (Manual) Seg Neutrophils # Seg Neutrophils # Man Lymphocytes # (Manual) Monocytes # (Manual) PT INR APTT Fibrinogen ABG pH 7.261 L POC ABG pCO2 POC ABG pO2 123.1 H ABG pO2 ABG Base Excess ABG Hemoglobin 8.7 L ABG Oxyhemoglobin ABG Sodium 123.2 L ABG Potassium ABG Chloride 96.0 L ABG Glucose 112 H Carboxyhemoglobin Sodium 128 L Potassium Chloride 90.7 L Carbon Dioxide 21 L BUN 86 H Creatinine 4.9 H Glucose 107 H POC Glucose 134 H Lactic Acid Calcium 6.2 L Ionized Calcium Phosphorus 5.30 H Magnesium 1.50 L AST Alkaline Phosphatase Total Protein Albumin Triglycerides Arterial Blood Glucose 112 H Arterial Blood Ionized Calcium 3.2 L Urine WBC (Auto) Urine Creatinine Crossmatch 12/30/20 12/31/20 12/31/20 22:45 02:14 04:40 WBC RBC Hgb Hct MCV MCHC RDW Plt Count Lymph % (Auto) Eos % (Auto) Lymph # (Auto) Eos # (Auto) Seg Neutrophils % Seg Neuts % (Manual) Lymphocytes % (Manual) Seg Neutrophils # Seg Neutrophils # Man Lymphocytes # (Manual) Monocytes # (Manual) PT INR APTT Fibrinogen ABG pH 7.267 L POC ABG pCO2 POC ABG pO2 ABG pO2 ABG Base Excess ABG Hemoglobin 8.0 L ABG Oxyhemoglobin 93.7 L ABG Sodium ABG Potassium ABG Chloride 95.0 L ABG Glucose 108 H Carboxyhemoglobin 1.7 H Sodium 126 L Potassium Chloride 90.3 L Carbon Dioxide 20 L BUN 70 H Creatinine 4.3 H Glucose 209 H POC Glucose 109 H Lactic Acid Calcium 6.6 L Ionized Calcium Phosphorus 4.70 H Magnesium 1.60 L AST Alkaline Phosphatase Total Protein Albumin Triglycerides 157 H Arterial Blood Glucose 108 H Arterial Blood Ionized Calcium 3.7 L Urine WBC (Auto) Urine Creatinine Crossmatch 12/31/20 12/31/20 01/01/21 16:23 23:21 04:00 WBC 18.0 H RBC 2.75 L Hgb 7.7 L Hct 23.9 L MCV MCHC RDW 15.6 H Plt Count Lymph % (Auto) Eos % (Auto) Lymph # (Auto) Eos # (Auto) Seg Neutrophils % Seg Neuts % (Manual) 91.0 H Lymphocytes % (Manual) 6.0 L Seg Neutrophils # Seg Neutrophils # Man 16.4 H Lymphocytes # (Manual) 1.1 L Monocytes # (Manual) PT INR APTT Fibrinogen ABG pH 7.264 L POC ABG pCO2 POC ABG pO2 74.8 L ABG pO2 ABG Base Excess ABG Hemoglobin 7.1 L ABG Oxyhemoglobin 92.1 L ABG Sodium 124.9 L ABG Potassium ABG Chloride 95.0 L ABG Glucose 111 H Carboxyhemoglobin 1.7 H Sodium Potassium Chloride Carbon Dioxide BUN Creatinine Glucose POC Glucose 125 H Lactic Acid Calcium Ionized Calcium Phosphorus Magnesium AST Alkaline Phosphatase Total Protein Albumin Triglycerides Arterial Blood Glucose 111 H Arterial Blood Ionized Calcium 4.0 L Urine WBC (Auto) Urine Creatinine Crossmatch 01/01/21 01/01/21 01/01/21 05:50 13:41 15:55 WBC RBC Hgb Hct MCV MCHC RDW Plt Count Lymph % (Auto) Eos % (Auto) Lymph # (Auto) Eos # (Auto) Seg Neutrophils % Seg Neuts % (Manual) Lymphocytes % (Manual) Seg Neutrophils # Seg Neutrophils # Man Lymphocytes # (Manual) Monocytes # (Manual) PT INR APTT Fibrinogen ABG pH 7.148 L 7.207 L POC ABG pCO2 53.1 H POC ABG pO2 57.3 L 138.4 H ABG pO2 ABG Base Excess ABG Hemoglobin 9.0 L 8.3 L ABG Oxyhemoglobin 83.2 L ABG Sodium 126.2 L 124.5 L ABG Potassium ABG Chloride 95.0 L 95.0 L ABG Glucose 96 H 120 H Carboxyhemoglobin Sodium 131 L Potassium Chloride 93.3 L Carbon Dioxide 21 L BUN 67 H Creatinine 4.2 H Glucose POC Glucose Lactic Acid Calcium 7.1 L Ionized Calcium Phosphorus Magnesium AST 60 H Alkaline Phosphatase Total Protein 4.8 L Albumin 1.4 L Triglycerides Arterial Blood Glucose 96 H 120 H Arterial Blood Ionized Calcium 4.1 L 3.9 L Urine WBC (Auto) Urine Creatinine Crossmatch 01/01/21 01/01/21 01/02/21 17:09 23:24 03:47 WBC RBC Hgb Hct MCV MCHC RDW Plt Count Lymph % (Auto) Eos % (Auto) Lymph # (Auto) Eos # (Auto) Seg Neutrophils % Seg Neuts % (Manual) Lymphocytes % (Manual) Seg Neutrophils # Seg Neutrophils # Man Lymphocytes # (Manual) Monocytes # (Manual) PT INR APTT Fibrinogen ABG pH 7.276 L POC ABG pCO2 POC ABG pO2 173.6 H ABG pO2 ABG Base Excess ABG Hemoglobin 7 L ABG Oxyhemoglobin ABG Sodium 122.4 L ABG Potassium ABG Chloride 94.0 L ABG Glucose 118 H Carboxyhemoglobin Sodium Potassium Chloride Carbon Dioxide BUN Creatinine Glucose POC Glucose 124 H 119 H Lactic Acid Calcium Ionized Calcium Phosphorus Magnesium AST Alkaline Phosphatase Total Protein Albumin Triglycerides Arterial Blood Glucose 118 H Arterial Blood Ionized Calcium 4.0 L Urine WBC (Auto) Urine Creatinine Crossmatch 01/02/21 01/02/21 01/02/21 05:33 08:00 08:00 WBC 19.7 H RBC 2.53 L Hgb 7.1 L Hct 22.0 L MCV MCHC RDW 16.4 H Plt Count Lymph % (Auto) Eos % (Auto) Lymph # (Auto) Eos # (Auto) Seg Neutrophils % Seg Neuts % (Manual) Lymphocytes % (Manual) Seg Neutrophils # Seg Neutrophils # Man Lymphocytes # (Manual) Monocytes # (Manual) PT INR APTT Fibrinogen ABG pH POC ABG pCO2 POC ABG pO2 ABG pO2 ABG Base Excess ABG Hemoglobin ABG Oxyhemoglobin ABG Sodium ABG Potassium ABG Chloride ABG Glucose Carboxyhemoglobin Sodium 127 L Potassium Chloride 89.3 L Carbon Dioxide 19 L BUN 82 H Creatinine 5.0 H Glucose 103 H POC Glucose 107 H Lactic Acid Calcium 7.8 L Ionized Calcium Phosphorus 6.40 H Magnesium AST 47 H Alkaline Phosphatase Total Protein 5.0 L Albumin 1.6 L Triglycerides Arterial Blood Glucose Arterial Blood Ionized Calcium Urine WBC (Auto) Urine Creatinine Crossmatch 01/02/21 01/03/21 01/03/21 17:25 07:56 09:47 WBC 17.7 H RBC 2.19 L Hgb 6.2 L Hct 18.5 L* MCV MCHC RDW 16.1 H Plt Count Lymph % (Auto) Eos % (Auto) Lymph # (Auto) Eos # (Auto) Seg Neutrophils % Seg Neuts % (Manual) Lymphocytes % (Manual) Seg Neutrophils # Seg Neutrophils # Man Lymphocytes # (Manual) Monocytes # (Manual) PT INR APTT Fibrinogen ABG pH POC ABG pCO2 POC ABG pO2 ABG pO2 ABG Base Excess ABG Hemoglobin ABG Oxyhemoglobin ABG Sodium ABG Potassium ABG Chloride ABG Glucose Carboxyhemoglobin Sodium 130 L Potassium 3.5 L Chloride 90.3 L Carbon Dioxide BUN 68 H Creatinine 3.9 H Glucose 103 H POC Glucose 116 H Lactic Acid Calcium 8.0 L Ionized Calcium Phosphorus 4.80 H D Magnesium AST Alkaline Phosphatase Total Protein Albumin Triglycerides Arterial Blood Glucose Arterial Blood Ionized Calcium Urine WBC (Auto) Urine Creatinine Crossmatch 01/03/21 01/03/21 01/04/21 11:00 19:00 03:12 WBC 17.0 H RBC 2.51 L Hgb 7.1 L Hct 21.5 L MCV MCHC RDW 16.6 H Plt Count Lymph % (Auto) Eos % (Auto) Lymph # (Auto) Eos # (Auto) Seg Neutrophils % Seg Neuts % (Manual) Lymphocytes % (Manual) Seg Neutrophils # Seg Neutrophils # Man Lymphocytes # (Manual) Monocytes # (Manual) PT INR APTT Fibrinogen ABG pH 7.463 H POC ABG pCO2 POC ABG pO2 72.2 L ABG pO2 ABG Base Excess ABG Hemoglobin 6.2 L ABG Oxyhemoglobin 91.8 L ABG Sodium 128.4 L ABG Potassium 3.3 L ABG Chloride 96.0 L ABG Glucose 112 H Carboxyhemoglobin Sodium Potassium Chloride Carbon Dioxide BUN Creatinine Glucose POC Glucose Lactic Acid Calcium Ionized Calcium Phosphorus Magnesium AST Alkaline Phosphatase Total Protein Albumin Triglycerides Arterial Blood Glucose 112 H Arterial Blood Ionized Calcium 4.3 L Urine WBC (Auto) Urine Creatinine Crossmatch See Detail 01/04/21 01/04/21 01/04/21 05:16 06:20 06:20 WBC 18.5 H RBC 2.53 L Hgb 7.4 L Hct 21.9 L MCV MCHC RDW 15.8 H Plt Count Lymph % (Auto) Eos % (Auto) Lymph # (Auto) Eos # (Auto) Seg Neutrophils % Seg Neuts % (Manual) Lymphocytes % (Manual) Seg Neutrophils # Seg Neutrophils # Man Lymphocytes # (Manual) Monocytes # (Manual) PT INR APTT Fibrinogen ABG pH POC ABG pCO2 POC ABG pO2 ABG pO2 ABG Base Excess ABG Hemoglobin ABG Oxyhemoglobin ABG Sodium ABG Potassium ABG Chloride ABG Glucose Carboxyhemoglobin Sodium 135 L Potassium Chloride 95.2 L Carbon Dioxide BUN 56 H Creatinine 3.2 H Glucose 109 H POC Glucose 123 H Lactic Acid Calcium 7.6 L Ionized Calcium Phosphorus Magnesium AST Alkaline Phosphatase Total Protein Albumin Triglycerides Arterial Blood Glucose Arterial Blood Ionized Calcium Urine WBC (Auto) Urine Creatinine Crossmatch 01/05/21 01/05/21 01/05/21 03:50 07:22 07:22 WBC 23.8 H RBC 2.93 L Hgb 8.2 L Hct 25.1 L MCV MCHC RDW 16.5 H Plt Count Lymph % (Auto) Eos % (Auto) Lymph # (Auto) Eos # (Auto) Seg Neutrophils % Seg Neuts % (Manual) Lymphocytes % (Manual) Seg Neutrophils # Seg Neutrophils # Man Lymphocytes # (Manual) Monocytes # (Manual) PT INR APTT Fibrinogen ABG pH POC ABG pCO2 POC ABG pO2 ABG pO2 136.8 H ABG Base Excess -2.3 L ABG Hemoglobin 6.9 L ABG Oxyhemoglobin ABG Sodium ABG Potassium ABG Chloride ABG Glucose Carboxyhemoglobin Sodium 134 L Potassium Chloride 93.3 L Carbon Dioxide BUN 77 H Creatinine 4.2 H Glucose 105 H POC Glucose Lactic Acid Calcium Ionized Calcium Phosphorus 4.90 H D Magnesium AST Alkaline Phosphatase Total Protein Albumin Triglycerides Arterial Blood Glucose Arterial Blood Ionized Calcium Urine WBC (Auto) Urine Creatinine Crossmatch 01/05/21 01/05/21 01/05/21 11:02 14:06 15:37 WBC RBC Hgb Hct MCV MCHC RDW Plt Count Lymph % (Auto) Eos % (Auto) Lymph # (Auto) Eos # (Auto) Seg Neutrophils % Seg Neuts % (Manual) Lymphocytes % (Manual) Seg Neutrophils # Seg Neutrophils # Man Lymphocytes # (Manual) Monocytes # (Manual) PT INR APTT Fibrinogen ABG pH POC ABG pCO2 POC ABG pO2 332.3 H ABG pO2 ABG Base Excess ABG Hemoglobin 7.7 L ABG Oxyhemoglobin 98.7 H ABG Sodium 131.0 L ABG Potassium 3.3 L ABG Chloride 97.0 L ABG Glucose 118 H Carboxyhemoglobin Sodium Potassium Chloride Carbon Dioxide BUN Creatinine Glucose POC Glucose 118 H 111 H Lactic Acid Calcium Ionized Calcium Phosphorus Magnesium AST Alkaline Phosphatase Total Protein Albumin Triglycerides Arterial Blood Glucose 118 H Arterial Blood Ionized Calcium 4.4 L Urine WBC (Auto) Urine Creatinine Crossmatch 01/05/21 01/06/21 01/06/21 23:18 04:00 04:20 WBC RBC Hgb Hct MCV MCHC RDW Plt Count Lymph % (Auto) Eos % (Auto) Lymph # (Auto) Eos # (Auto) Seg Neutrophils % Seg Neuts % (Manual) Lymphocytes % (Manual) Seg Neutrophils # Seg Neutrophils # Man Lymphocytes # (Manual) Monocytes # (Manual) PT INR APTT Fibrinogen ABG pH POC ABG pCO2 POC ABG pO2 230.5 H ABG pO2 ABG Base Excess ABG Hemoglobin 7.9 L ABG Oxyhemoglobin 98.5 H ABG Sodium 129.4 L ABG Potassium ABG Chloride 97.0 L ABG Glucose 117 H Carboxyhemoglobin Sodium 133 L Potassium Chloride 94.4 L Carbon Dioxide BUN 62 H Creatinine 3.6 H Glucose 110 H POC Glucose 110 H Lactic Acid Calcium 7.8 L Ionized Calcium Phosphorus Magnesium AST Alkaline Phosphatase Total Protein Albumin Triglycerides Arterial Blood Glucose 117 H Arterial Blood Ionized Calcium 4.5 L Urine WBC (Auto) Urine Creatinine Crossmatch 01/06/21 01/06/21 01/06/21 05:28 09:00 11:00 WBC 15.2 H RBC 2.18 L Hgb 6.5 L Hct 21.8 L MCV 100 H MCHC 30 L RDW 18.5 H Plt Count Lymph % (Auto) Eos % (Auto) Lymph # (Auto) Eos # (Auto) Seg Neutrophils % Seg Neuts % (Manual) Lymphocytes % (Manual) Seg Neutrophils # Seg Neutrophils # Man Lymphocytes # (Manual) Monocytes # (Manual) PT INR APTT Fibrinogen ABG pH POC ABG pCO2 POC ABG pO2 ABG pO2 ABG Base Excess ABG Hemoglobin ABG Oxyhemoglobin ABG Sodium ABG Potassium ABG Chloride ABG Glucose Carboxyhemoglobin Sodium Potassium Chloride Carbon Dioxide BUN Creatinine Glucose POC Glucose 109 H Lactic Acid Calcium Ionized Calcium Phosphorus Magnesium AST Alkaline Phosphatase Total Protein Albumin Triglycerides Arterial Blood Glucose Arterial Blood Ionized Calcium Urine WBC (Auto) Urine Creatinine Crossmatch See Detail 01/06/21 01/06/21 01/07/21 11:32 23:44 03:10 WBC 15.3 H RBC 2.30 L Hgb 6.7 L Hct 20.1 L MCV MCHC RDW 16.6 H Plt Count Lymph % (Auto) Eos % (Auto) Lymph # (Auto) Eos # (Auto) Seg Neutrophils % Seg Neuts % (Manual) Lymphocytes % (Manual) Seg Neutrophils # Seg Neutrophils # Man Lymphocytes # (Manual) Monocytes # (Manual) PT INR APTT Fibrinogen ABG pH POC ABG pCO2 POC ABG pO2 ABG pO2 ABG Base Excess ABG Hemoglobin ABG Oxyhemoglobin ABG Sodium ABG Potassium ABG Chloride ABG Glucose Carboxyhemoglobin Sodium Potassium Chloride Carbon Dioxide BUN Creatinine Glucose POC Glucose 113 H 118 H Lactic Acid Calcium Ionized Calcium Phosphorus Magnesium AST Alkaline Phosphatase Total Protein Albumin Triglycerides Arterial Blood Glucose Arterial Blood Ionized Calcium Urine WBC (Auto) Urine Creatinine Crossmatch 01/07/21 01/07/21 01/07/21 03:10 04:17 05:06 WBC RBC Hgb Hct MCV MCHC RDW Plt Count Lymph % (Auto) Eos % (Auto) Lymph # (Auto) Eos # (Auto) Seg Neutrophils % Seg Neuts % (Manual) Lymphocytes % (Manual) Seg Neutrophils # Seg Neutrophils # Man Lymphocytes # (Manual) Monocytes # (Manual) PT INR APTT Fibrinogen ABG pH 7.272 L POC ABG pCO2 50.1 H POC ABG pO2 ABG pO2 ABG Base Excess ABG Hemoglobin 8.4 L ABG Oxyhemoglobin ABG Sodium 128.6 L ABG Potassium ABG Chloride 95.0 L ABG Glucose 109 H Carboxyhemoglobin Sodium 133 L Potassium Chloride 93.6 L Carbon Dioxide BUN 85 H Creatinine 3.9 H Glucose 112 H POC Glucose 106 H Lactic Acid Calcium Ionized Calcium Phosphorus 4.70 H D Magnesium AST Alkaline Phosphatase Total Protein Albumin Triglycerides Arterial Blood Glucose 109 H Arterial Blood Ionized Calcium Urine WBC (Auto) Urine Creatinine Crossmatch 01/07/21 01/07/21 01/07/21 14:05 16:00 23:25 WBC RBC Hgb 8.1 L Hct 24.2 L MCV MCHC RDW Plt Count Lymph % (Auto) Eos % (Auto) Lymph # (Auto) Eos # (Auto) Seg Neutrophils % Seg Neuts % (Manual) Lymphocytes % (Manual) Seg Neutrophils # Seg Neutrophils # Man Lymphocytes # (Manual) Monocytes # (Manual) PT INR APTT Fibrinogen ABG pH POC ABG pCO2 POC ABG pO2 ABG pO2 ABG Base Excess ABG Hemoglobin 7.2 L ABG Oxyhemoglobin ABG Sodium 127.3 L ABG Potassium ABG Chloride 96.0 L ABG Glucose 98 H Carboxyhemoglobin Sodium Potassium Chloride Carbon Dioxide BUN Creatinine Glucose POC Glucose 106 H Lactic Acid Calcium Ionized Calcium Phosphorus Magnesium AST Alkaline Phosphatase Total Protein Albumin Triglycerides Arterial Blood Glucose 98 H Arterial Blood Ionized Calcium Urine WBC (Auto) Urine Creatinine Crossmatch 01/08/21 01/08/21 01/08/21 03:22 05:30 23:22 WBC RBC Hgb Hct MCV MCHC RDW Plt Count Lymph % (Auto) Eos % (Auto) Lymph # (Auto) Eos # (Auto) Seg Neutrophils % Seg Neuts % (Manual) Lymphocytes % (Manual) Seg Neutrophils # Seg Neutrophils # Man Lymphocytes # (Manual) Monocytes # (Manual) PT INR APTT Fibrinogen ABG pH POC ABG pCO2 POC ABG pO2 71.3 L ABG pO2 ABG Base Excess ABG Hemoglobin 8.7 L ABG Oxyhemoglobin 92.2 L ABG Sodium 125.9 L ABG Potassium ABG Chloride 96.0 L ABG Glucose 124 H Carboxyhemoglobin Sodium Potassium Chloride Carbon Dioxide BUN Creatinine Glucose POC Glucose 118 H 110 H Lactic Acid Calcium Ionized Calcium Phosphorus Magnesium AST Alkaline Phosphatase Total Protein Albumin Triglycerides Arterial Blood Glucose 124 H Arterial Blood Ionized Calcium Urine WBC (Auto) Urine Creatinine Crossmatch 01/08/21 01/08/21 01/09/21 Unknown Unknown 08:45 WBC 15.2 H RBC 2.62 L Hgb 7.6 L Hct 22.7 L MCV MCHC RDW 16.7 H Plt Count Lymph % (Auto) Eos % (Auto) Lymph # (Auto) Eos # (Auto) Seg Neutrophils % Seg Neuts % (Manual) 95.0 H Lymphocytes % (Manual) 3.0 L Seg Neutrophils # Seg Neutrophils # Man 14.4 H Lymphocytes # (Manual) 0.5 L Monocytes # (Manual) PT INR APTT Fibrinogen ABG pH POC ABG pCO2 POC ABG pO2 ABG pO2 ABG Base Excess ABG Hemoglobin ABG Oxyhemoglobin ABG Sodium ABG Potassium ABG Chloride ABG Glucose Carboxyhemoglobin Sodium 129 L 129 L Potassium Chloride 91.2 L 92.7 L Carbon Dioxide 21 L 19 L BUN 91 H 105 H Creatinine 4.0 H 4.4 H Glucose 115 H 107 H POC Glucose Lactic Acid Calcium Ionized Calcium Phosphorus 5.00 H Magnesium AST Alkaline Phosphatase Total Protein 5.3 L Albumin 1.6 L Triglycerides 166 H Arterial Blood Glucose Arterial Blood Ionized Calcium Urine WBC (Auto) Urine Creatinine Crossmatch 01/09/21 01/09/21 01/10/21 10:10 23:51 04:00 WBC 14.1 H RBC 2.50 L Hgb 7.2 L Hct 21.6 L MCV MCHC RDW 16.5 H Plt Count Lymph % (Auto) Eos % (Auto) Lymph # (Auto) Eos # (Auto) Seg Neutrophils % Seg Neuts % (Manual) 92.0 H Lymphocytes % (Manual) 2.0 L Seg Neutrophils # Seg Neutrophils # Man 13.0 H Lymphocytes # (Manual) 0.3 L Monocytes # (Manual) PT INR APTT Fibrinogen ABG pH 7.273 L POC ABG pCO2 POC ABG pO2 ABG pO2 ABG Base Excess ABG Hemoglobin 8.7 L ABG Oxyhemoglobin ABG Sodium 126.2 L ABG Potassium 4.8 H ABG Chloride 96.0 L ABG Glucose 160 H Carboxyhemoglobin Sodium Potassium Chloride Carbon Dioxide BUN Creatinine Glucose POC Glucose 154 H Lactic Acid Calcium Ionized Calcium Phosphorus Magnesium AST Alkaline Phosphatase Total Protein Albumin Triglycerides Arterial Blood Glucose 160 H Arterial Blood Ionized Calcium Urine WBC (Auto) Urine Creatinine Crossmatch 01/10/21 01/10/21 01/10/21 04:01 04:01 04:01 WBC 12.6 H RBC 2.89 L Hgb 8.1 L Hct 24.9 L MCV MCHC RDW 16.6 H Plt Count Lymph % (Auto) Eos % (Auto) Lymph # (Auto) Eos # (Auto) Seg Neutrophils % Seg Neuts % (Manual) 95.0 H Lymphocytes % (Manual) 3.0 L Seg Neutrophils # Seg Neutrophils # Man 12.0 H Lymphocytes # (Manual) 0.4 L Monocytes # (Manual) PT 15.4 H INR 1.17 H APTT 40.2 H Fibrinogen 817 H ABG pH POC ABG pCO2 POC ABG pO2 ABG pO2 ABG Base Excess ABG Hemoglobin ABG Oxyhemoglobin ABG Sodium ABG Potassium ABG Chloride ABG Glucose Carboxyhemoglobin Sodium 128 L Potassium Chloride 90.4 L Carbon Dioxide 19 L BUN 113 H Creatinine 4.5 H Glucose 162 H POC Glucose Lactic Acid Calcium Ionized Calcium Phosphorus 5.70 H Magnesium AST Alkaline Phosphatase Total Protein 6.2 L Albumin 2.1 L Triglycerides Arterial Blood Glucose Arterial Blood Ionized Calcium Urine WBC (Auto) Urine Creatinine Crossmatch 01/10/21 01/10/21 01/11/21 05:31 11:45 04:00 WBC RBC Hgb Hct MCV MCHC RDW Plt Count Lymph % (Auto) Eos % (Auto) Lymph # (Auto) Eos # (Auto) Seg Neutrophils % Seg Neuts % (Manual) Lymphocytes % (Manual) Seg Neutrophils # Seg Neutrophils # Man Lymphocytes # (Manual) Monocytes # (Manual) PT INR APTT Fibrinogen ABG pH 7.311 L POC ABG pCO2 49.2 H POC ABG pO2 ABG pO2 ABG Base Excess ABG Hemoglobin 9.4 L ABG Oxyhemoglobin ABG Sodium 130.3 L ABG Potassium ABG Chloride 96.0 L ABG Glucose 104 H Carboxyhemoglobin Sodium Potassium Chloride Carbon Dioxide BUN Creatinine Glucose POC Glucose 150 H 145 H Lactic Acid Calcium Ionized Calcium Phosphorus Magnesium AST Alkaline Phosphatase Total Protein Albumin Triglycerides Arterial Blood Glucose 104 H Arterial Blood Ionized Calcium Urine WBC (Auto) Urine Creatinine Crossmatch 01/11/21 01/11/21 01/12/21 04:45 17:29 05:51 WBC RBC Hgb Hct MCV MCHC RDW Plt Count Lymph % (Auto) Eos % (Auto) Lymph # (Auto) Eos # (Auto) Seg Neutrophils % Seg Neuts % (Manual) Lymphocytes % (Manual) Seg Neutrophils # Seg Neutrophils # Man Lymphocytes # (Manual) Monocytes # (Manual) PT INR APTT Fibrinogen ABG pH POC ABG pCO2 POC ABG pO2 ABG pO2 ABG Base Excess ABG Hemoglobin ABG Oxyhemoglobin ABG Sodium ABG Potassium ABG Chloride ABG Glucose Carboxyhemoglobin Sodium 134 L Potassium 3.5 L D Chloride 95.5 L Carbon Dioxide BUN 88 H Creatinine 3.5 H Glucose 103 H POC Glucose 109 H 114 H Lactic Acid Calcium Ionized Calcium Phosphorus Magnesium AST Alkaline Phosphatase Total Protein Albumin Triglycerides Arterial Blood Glucose Arterial Blood Ionized Calcium Urine WBC (Auto) Urine Creatinine Crossmatch 01/12/21 01/12/21 01/12/21 10:00 10:00 11:56 WBC RBC Hgb Hct MCV MCHC RDW Plt Count Lymph % (Auto) Eos % (Auto) Lymph # (Auto) Eos # (Auto) Seg Neutrophils % Seg Neuts % (Manual) Lymphocytes % (Manual) Seg Neutrophils # Seg Neutrophils # Man Lymphocytes # (Manual) Monocytes # (Manual) PT INR APTT Fibrinogen ABG pH POC ABG pCO2 POC ABG pO2 ABG pO2 ABG Base Excess ABG Hemoglobin ABG Oxyhemoglobin ABG Sodium ABG Potassium ABG Chloride ABG Glucose Carboxyhemoglobin Sodium 136 L Potassium Chloride 95.2 L Carbon Dioxide BUN 102 H Creatinine 3.6 H Glucose 106 H POC Glucose 113 H Lactic Acid Calcium Ionized Calcium Phosphorus 4.90 H Magnesium AST Alkaline Phosphatase Total Protein Albumin Triglycerides 153 H Arterial Blood Glucose Arterial Blood Ionized Calcium Urine WBC (Auto) Urine Creatinine Crossmatch 01/12/21 01/12/21 01/13/21 17:43 23:31 03:14 WBC RBC Hgb Hct MCV MCHC RDW Plt Count Lymph % (Auto) Eos % (Auto) Lymph # (Auto) Eos # (Auto) Seg Neutrophils % Seg Neuts % (Manual) Lymphocytes % (Manual) Seg Neutrophils # Seg Neutrophils # Man Lymphocytes # (Manual) Monocytes # (Manual) PT INR APTT Fibrinogen ABG pH 7.484 H POC ABG pCO2 POC ABG pO2 ABG pO2 ABG Base Excess ABG Hemoglobin 8.4 L ABG Oxyhemoglobin ABG Sodium 134.4 L ABG Potassium 3.1 L ABG Chloride ABG Glucose 117 H Carboxyhemoglobin Sodium Potassium Chloride Carbon Dioxide BUN Creatinine Glucose POC Glucose 113 H 108 H Lactic Acid Calcium Ionized Calcium Phosphorus Magnesium AST Alkaline Phosphatase Total Protein Albumin Triglycerides Arterial Blood Glucose 117 H Arterial Blood Ionized Calcium 4.5 L Urine WBC (Auto) Urine Creatinine Crossmatch 01/13/21 01/13/21 01/13/21 04:56 05:00 05:00 WBC RBC 2.87 L Hgb 8.0 L Hct 24.4 L MCV MCHC RDW 17.2 H Plt Count Lymph % (Auto) Eos % (Auto) Lymph # (Auto) Eos # (Auto) Seg Neutrophils % Seg Neuts % (Manual) Lymphocytes % (Manual) Seg Neutrophils # Seg Neutrophils # Man Lymphocytes # (Manual) Monocytes # (Manual) PT INR APTT Fibrinogen ABG pH POC ABG pCO2 POC ABG pO2 ABG pO2 ABG Base Excess ABG Hemoglobin ABG Oxyhemoglobin ABG Sodium ABG Potassium ABG Chloride ABG Glucose Carboxyhemoglobin Sodium Potassium 3.0 L Chloride 97.6 L Carbon Dioxide BUN 69 H Creatinine 2.9 H Glucose 114 H POC Glucose 110 H Lactic Acid Calcium 8.0 L Ionized Calcium Phosphorus Magnesium AST Alkaline Phosphatase Total Protein Albumin Triglycerides Arterial Blood Glucose Arterial Blood Ionized Calcium Urine WBC (Auto) Urine Creatinine Crossmatch 01/13/21 01/14/21 01/14/21 12:09 05:00 05:00 WBC 12.4 H RBC 2.72 L Hgb 7.7 L Hct 23.3 L MCV MCHC RDW 17.3 H Plt Count Lymph % (Auto) 6.5 L Eos % (Auto) 7.7 H Lymph # (Auto) 0.8 L Eos # (Auto) 1.0 H Seg Neutrophils % 82.7 H Seg Neuts % (Manual) Lymphocytes % (Manual) Seg Neutrophils # 10.2 H Seg Neutrophils # Man Lymphocytes # (Manual) Monocytes # (Manual) PT INR APTT Fibrinogen ABG pH POC ABG pCO2 POC ABG pO2 ABG pO2 ABG Base Excess ABG Hemoglobin ABG Oxyhemoglobin ABG Sodium ABG Potassium ABG Chloride ABG Glucose Carboxyhemoglobin Sodium Potassium 3.2 L Chloride Carbon Dioxide BUN 79 H Creatinine 3.1 H Glucose POC Glucose 111 H Lactic Acid Calcium Ionized Calcium Phosphorus Magnesium AST Alkaline Phosphatase Total Protein Albumin Triglycerides Arterial Blood Glucose Arterial Blood Ionized Calcium Urine WBC (Auto) Urine Creatinine Crossmatch 01/16/21 01/16/21 01/16/21 04:30 04:30 16:00 WBC RBC 2.62 L Hgb 7.6 L Hct 22.6 L MCV MCHC RDW 17.3 H Plt Count Lymph % (Auto) Eos % (Auto) Lymph # (Auto) Eos # (Auto) Seg Neutrophils % Seg Neuts % (Manual) Lymphocytes % (Manual) Seg Neutrophils # Seg Neutrophils # Man Lymphocytes # (Manual) Monocytes # (Manual) PT INR APTT Fibrinogen ABG pH POC ABG pCO2 POC ABG pO2 ABG pO2 ABG Base Excess ABG Hemoglobin ABG Oxyhemoglobin ABG Sodium ABG Potassium ABG Chloride ABG Glucose Carboxyhemoglobin Sodium 146 H Potassium 2.9 L* 3.0 L Chloride Carbon Dioxide BUN 58 H Creatinine 2.4 H Glucose 101 H POC Glucose Lactic Acid Calcium Ionized Calcium Phosphorus Magnesium AST Alkaline Phosphatase Total Protein Albumin 2.1 L Triglycerides Arterial Blood Glucose Arterial Blood Ionized Calcium Urine WBC (Auto) Urine Creatinine Crossmatch 01/16/21 01/17/21 01/17/21 Unknown 04:30 04:30 WBC RBC 2.80 L Hgb 7.9 L Hct 24.1 L MCV MCHC RDW 17.1 H Plt Count Lymph % (Auto) Eos % (Auto) Lymph # (Auto) Eos # (Auto) Seg Neutrophils % Seg Neuts % (Manual) Lymphocytes % (Manual) Seg Neutrophils # Seg Neutrophils # Man Lymphocytes # (Manual) Monocytes # (Manual) PT INR APTT Fibrinogen ABG pH POC ABG pCO2 POC ABG pO2 ABG pO2 ABG Base Excess ABG Hemoglobin ABG Oxyhemoglobin ABG Sodium ABG Potassium ABG Chloride ABG Glucose Carboxyhemoglobin Sodium 151 H Potassium 2.8 L* Chloride 108.0 H Carbon Dioxide BUN 58 H Creatinine 2.2 H Glucose 103 H POC Glucose Lactic Acid Calcium 8.0 L Ionized Calcium Phosphorus Magnesium 1.40 L AST Alkaline Phosphatase Total Protein Albumin Triglycerides 216 H Arterial Blood Glucose Arterial Blood Ionized Calcium Urine WBC (Auto) > 182.0 H Urine Creatinine Crossmatch 01/17/21 01/17/21 01/18/21 11:24 23:00 04:15 WBC RBC Hgb Hct MCV MCHC RDW Plt Count Lymph % (Auto) Eos % (Auto) Lymph # (Auto) Eos # (Auto) Seg Neutrophils % Seg Neuts % (Manual) Lymphocytes % (Manual) Seg Neutrophils # Seg Neutrophils # Man Lymphocytes # (Manual) Monocytes # (Manual) PT INR APTT Fibrinogen ABG pH POC ABG pCO2 POC ABG pO2 ABG pO2 ABG Base Excess ABG Hemoglobin ABG Oxyhemoglobin ABG Sodium ABG Potassium ABG Chloride ABG Glucose Carboxyhemoglobin Sodium 153 H Potassium 3.3 L 3.3 L Chloride 113.1 H Carbon Dioxide BUN 55 H Creatinine 1.9 H Glucose POC Glucose 110 H Lactic Acid Calcium 7.4 L Ionized Calcium Phosphorus Magnesium AST Alkaline Phosphatase Total Protein Albumin Triglycerides Arterial Blood Glucose Arterial Blood Ionized Calcium Urine WBC (Auto) Urine Creatinine Crossmatch 01/18/21 01/18/21 01/19/21 10:37 21:00 05:00 WBC RBC 2.64 L Hgb 7.8 L Hct 22.7 L MCV MCHC RDW 16.8 H Plt Count Lymph % (Auto) Eos % (Auto) Lymph # (Auto) Eos # (Auto) Seg Neutrophils % Seg Neuts % (Manual) Lymphocytes % (Manual) Seg Neutrophils # Seg Neutrophils # Man Lymphocytes # (Manual) Monocytes # (Manual) PT INR APTT Fibrinogen ABG pH 7.512 H POC ABG pCO2 POC ABG pO2 47.8 L ABG pO2 ABG Base Excess ABG Hemoglobin 8.9 L ABG Oxyhemoglobin 83.3 L ABG Sodium 151.5 H ABG Potassium 2.9 L ABG Chloride 117.0 H ABG Glucose 111 H Carboxyhemoglobin Sodium Potassium 3.4 L Chloride Carbon Dioxide BUN Creatinine Glucose POC Glucose Lactic Acid Calcium Ionized Calcium Phosphorus Magnesium AST Alkaline Phosphatase Total Protein Albumin Triglycerides Arterial Blood Glucose 111 H Arterial Blood Ionized Calcium 4.3 L Urine WBC (Auto) Urine Creatinine Crossmatch 01/19/21 01/19/21 07:39 07:39 WBC RBC 2.82 L Hgb 8.2 L Hct 24.6 L MCV MCHC RDW 16.8 H Plt Count Lymph % (Auto) Eos % (Auto) Lymph # (Auto) Eos # (Auto) Seg Neutrophils % Seg Neuts % (Manual) Lymphocytes % (Manual) Seg Neutrophils # Seg Neutrophils # Man Lymphocytes # (Manual) Monocytes # (Manual) PT INR APTT Fibrinogen ABG pH POC ABG pCO2 POC ABG pO2 ABG pO2 ABG Base Excess ABG Hemoglobin ABG Oxyhemoglobin ABG Sodium ABG Potassium ABG Chloride ABG Glucose Carboxyhemoglobin Sodium 156 H Potassium 3.2 L Chloride 115.4 H Carbon Dioxide BUN 50 H Creatinine 1.6 H Glucose 108 H POC Glucose Lactic Acid Calcium 8.1 L Ionized Calcium Phosphorus Magnesium 1.50 L AST Alkaline Phosphatase Total Protein Albumin Triglycerides Arterial Blood Glucose Arterial Blood Ionized Calcium Urine WBC (Auto) Urine Creatinine Crossmatch
[2021-01-19] MEDS: HYDROmorphone 1 MG/1 ML INJ IV SCH ×3 (11:49→18:02)
--- NOTE | 2021-01-19 12:01 | XRay Report ---
XR chest 1V ap INDICATION / CLINICAL INFORMATION: repositioned ett. COMPARISON: 01/19/2021 at 0427 hours FINDINGS: SUPPORT DEVICES: Endotracheal tube terminates at the henrietta. Visualized enteric catheter extends belo w the diaphragm, out of the [id number]. HEART /PULMONARY VASCULATURE: Unchanged. LUNGS / PLEURA: Lung parenchyma is not significantly changed. No pneumothorax. IMPRESSION: Endotracheal tube terminates at the henrietta. Recommend retraction by approximately 4 cm. Signer Name: Tyrone Stein MD Signed: 01/19/2021 11:56 AM Workstation Name: [id number]
--- NOTE | 2021-01-19 12:07 | XRay Report ---
ABDOMEN 1 VIEW(S) INDICATION / CLINICAL INFORMATION: replaced dobhoff. COMPARISON: None available. FINDINGS: TUBES / LINES: The Dobbhoff tube terminates in the descending duodenum. BOWEL GAS PATTERN: No significant abnormality. FREE AIR / EXTRALUMINAL GAS: None seen. ADDITIONAL FINDINGS: No significant additional findings. IMPRESSION: No significant abnormality. Adequate placement of the Dobbhoff tube. Signer Name: Kyle Ramirez Jr, MD Signed: 01/19/2021 12:02 PM Workstation Name: [id number]
[2021-01-19 12:47] LABS: Creatinine,Urine 17.6 mg/dL (0.1-20.0)
[2021-01-19] MEDS: QUEtiapine 25 MG TAB PO SCH ×2 (13:30→21:28)
[2021-01-19] MEDS: POTASSIUM CHLORIDE 20 MEQ PACKET FEEDTUBE SCH ×2 (16:43→21:29)
--- NOTE | 2021-01-19 17:01 | Progress Note ---
Assessment and Plan POD#31 s/p ex lap and small bowel resection for necrotic bowel secondary to incarcerated ventral hernia left with open abdomen. POD#28 s/p abdominal exploration with segmental small bowel resection. abthera placement POD#25 s/p abdominal exploration, small bowel resection for ischemia, abthera placement POD#22 s/p abdominal exploration with small bowel anastamosis and abthera vac placement POD#18 s/p abdomen closure with mesh Fever curve improving and stable Likely sources abdominal wound, bacteremia, and UTI Renal failure resolving no longer needing dialysis. Respiratory insufficiency, wean to extubation per weight loss counselor Anemia likely due to illness and procedural losses. No clinical signs of identifiable active bleeding. Spoke with interventional radiology who reviewed CAT scan who feels that the fluid collection is likely reactive and likely will absorb on its own. Pseudomonas growing in wound, awaiting for species identification and blood culture. Continue antibiotics per ID. Continue supportive care. Pt was accepted by [facility] and should be transferred tomorrow. Pt should continue tubefeeds until extubated. After extubation can started on PO after swallow study. abdominal wound should be managed with wet to dry dressing changes daily. Can be evaluated again by wound care nurse at LT as wound heals. LAURA drains are between the fascia and subcutaneous tissue. Output has been minimal. Would continue them until the midline is better healed. Prognosis is guarded but improving. Subjective Date of service: 01/19/21 Narrative: No acute events overnight. Pt is much more alert and trying to communicate. He is tolerating tube feeds. Objective Vital Signs - 12hr 01/19/21 01/19/21 01/19/21 05:00 05:15 05:30 Temperature Pulse Rate 95 H 90 90 Pulse Rate [ From Monitor] Respiratory 29 H 25 H 24 Rate Blood Pressure 157/95 156/85 161/83 O2 Sat by Pulse 98 95 97 Oximetry 01/19/21 01/19/21 01/19/21 05:45 06:01 06:15 Temperature Pulse Rate 96 H 96 H 92 H Pulse Rate [ From Monitor] Respiratory 28 H 23 Rate Blood Pressure 161/83 161/83 126/70 O2 Sat by Pulse 96 97 97 Oximetry 01/19/21 01/19/21 01/19/21 06:30 06:45 07:00 Temperature Pulse Rate 88 89 87 Pulse Rate [ From Monitor] Respiratory 29 H 17 18 Rate Blood Pressure 120/63 125/61 125/67 O2 Sat by Pulse 97 99 99 Oximetry 01/19/21 01/19/21 01/19/21 07:15 07:30 07:45 Temperature Pulse Rate 90 85 82 Pulse Rate [ From Monitor] Respiratory 25 H 28 H 26 H Rate Blood Pressure 112/53 120/58 121/67 O2 Sat by Pulse 96 100 100 Oximetry 01/19/21 01/19/21 01/19/21 08:00 08:15 08:30 Temperature 98.3 F Pulse Rate 87 86 91 H Pulse Rate [ 84 From Monitor] Respiratory 26 H 26 H 25 H Rate Blood Pressure 133/73 137/72 134/74 O2 Sat by Pulse 100 96 100 Oximetry 01/19/21 01/19/21 01/19/21 08:33 08:45 09:00 Temperature Pulse Rate 89 92 H 87 Pulse Rate [ From Monitor] Respiratory 28 H 23 Rate Blood Pressure 134/74 146/69 152/74 O2 Sat by Pulse 100 99 100 Oximetry 01/19/21 01/19/21 01/19/21 09:15 09:30 09:45 Temperature Pulse Rate 89 88 94 H Pulse Rate [ From Monitor] Respiratory 34 H 30 H 46 H Rate Blood Pressure 142/74 141/73 145/73 O2 Sat by Pulse 94 95 97 Oximetry 01/19/21 01/19/21 01/19/21 10:00 10:15 10:30 Temperature Pulse Rate 91 H 93 H 98 H Pulse Rate [ From Monitor] Respiratory 19 11 L 21 Rate Blood Pressure 143/73 164/71 151/89 O2 Sat by Pulse 97 100 96 Oximetry 01/19/21 01/19/21 01/19/21 10:45 11:00 11:15 Temperature Pulse Rate 96 H 94 H 98 H Pulse Rate [ From Monitor] Respiratory 16 23 11 L Rate Blood Pressure 149/90 145/73 155/76 O2 Sat by Pulse 99 100 100 Oximetry 01/19/21 01/19/21 01/19/21 11:30 11:45 12:00 Temperature 98.6 F Pulse Rate 88 97 H 67 Pulse Rate [ 88 From Monitor] Respiratory 21 14 26 H Rate Blood Pressure 132/73 144/75 136/73 O2 Sat by Pulse 100 99 100 Oximetry 01/19/21 01/19/21 01/19/21 12:08 12:15 12:30 Temperature Pulse Rate 90 88 91 H Pulse Rate [ From Monitor] Respiratory 24 24 Rate Blood Pressure 136/73 138/74 138/77 O2 Sat by Pulse 100 99 100 Oximetry 01/19/21 01/19/21 01/19/21 12:45 13:01 13:15 Temperature Pulse Rate 89 93 H 97 H Pulse Rate [ From Monitor] Respiratory 26 H 25 H 24 Rate Blood Pressure 144/78 151/74 155/83 O2 Sat by Pulse 100 100 100 Oximetry 01/19/21 01/19/21 01/19/21 13:30 13:45 14:00 Temperature Pulse Rate 96 H 90 88 Pulse Rate [ From Monitor] Respiratory 21 25 H 24 Rate Blood Pressure 141/84 108/54 108/54 O2 Sat by Pulse 100 100 100 Oximetry 01/19/21 01/19/21 01/19/21 14:15 14:30 14:45 Temperature Pulse Rate 92 H 92 H 97 H Pulse Rate [ From Monitor] Respiratory 26 H 25 H 22 Rate Blood Pressure 112/57 108/60 131/67 O2 Sat by Pulse 100 100 100 Oximetry 01/19/21 01/19/21 01/19/21 15:00 15:15 15:30 Temperature Pulse Rate 91 H 90 91 H Pulse Rate [ From Monitor] Respiratory 24 27 H 28 H Rate Blood Pressure 134/66 114/64 127/69 O2 Sat by Pulse 100 100 100 Oximetry 01/19/21 01/19/21 01/19/21 15:45 16:00 16:01 Temperature Pulse Rate 96 H 94 H 96 H Pulse Rate [ 94 H From Monitor] Respiratory 26 H 22 Rate Blood Pressure 118/63 133/76 O2 Sat by Pulse 100 100 100 Oximetry 01/19/21 01/19/21 01/19/21 16:15 16:30 16:36 Temperature Pulse Rate 92 H 89 90 Pulse Rate [ From Monitor] Respiratory 27 H 26 H Rate Blood Pressure 123/66 117/66 117/66 O2 Sat by Pulse 99 100 98 Oximetry - General physical appearance well developed, no distress - Respiratory normal expansion, normal respiratory effort - Abdomen soft, other (remaining staple line intact, areas of desquamation stable, opening in stable line with fatty necrosis. minimal odor. LAURA drains with serous fluid.) - Genitourinary other (improvement in scrotal edema) - Neurologic normal coordination - Labs 01/19/21 07:39 01/19/21 07:39 Diabetes panel 01/18/21 01/19/21 Range/Units 21:00 07:39 Sodium 156 H (137-145) mmol/L Potassium 3.4 L 3.2 L (3.6-5.0) mmol/L Chloride 115.4 H (98-107) mmol/L Carbon Dioxide 27 (22-30) mmol/L BUN 50 H (9-20) mg/dL Creatinine 1.6 H (0.8-1.3) mg/dL Glucose 108 H (75-100) mg/dL Calcium 8.1 L (8.4-10.2) mg/dL Calcium panel 01/19/21 Range/Units 07:39 Calcium 8.1 L (8.4-10.2) mg/dL Pituitary panel 01/18/21 01/19/21 Range/Units 21:00 07:39 Sodium 156 H (137-145) mmol/L Potassium 3.4 L 3.2 L (3.6-5.0) mmol/L Chloride 115.4 H (98-107) mmol/L Carbon Dioxide 27 (22-30) mmol/L BUN 50 H (9-20) mg/dL Creatinine 1.6 H (0.8-1.3) mg/dL Glucose 108 H (75-100) mg/dL Calcium 8.1 L (8.4-10.2) mg/dL Adrenal panel 01/18/21 01/19/21 Range/Units 21:00 07:39 Sodium 156 H (137-145) mmol/L Potassium 3.4 L 3.2 L (3.6-5.0) mmol/L Chloride 115.4 H (98-107) mmol/L Carbon Dioxide 27 (22-30) mmol/L BUN 50 H (9-20) mg/dL Creatinine 1.6 H (0.8-1.3) mg/dL Glucose 108 H (75-100) mg/dL Calcium 8.1 L (8.4-10.2) mg/dL
[2021-01-19] MEDS ORDERED: POTASSIUM CHLORIDE 20 MEQ in DEXTROSE 5% IN WATER 1,000 ML IV SCH (18:00)
[2021-01-19] MEDS: ACETAMINOPHEN 325 MG/10.15 ML ORAL LIQD UNIT DOSE FEEDTUBE PRN (19:46)
[2021-01-20] MEDS: MEROPENEM/NS 1 GRAM/100 ML 1 GRAM/100 ML BAG IV SCH ×2 (02:23→09:50)
[2021-01-20] MEDS: FREE WATER PO SCH ×4 (02:24→13:25)
[2021-01-20] MEDS: DEXTROSE 5% IN WATER 1,000 ML with POTASSIUM CHLORIDE 20 MEQ IV SCH (04:27)
[2021-01-20] MEDS: HYDROmorphone 1 MG/1 ML INJ IV SCH ×6 (04:30→21:59)
[2021-01-20] MEDS: INSULIN REGULAR, HUMAN 100 UNITS/1 ML SUB-Q SCH ×3 (06:33→19:38)
[2021-01-20] MEDS: HEPARIN 5,000 UNIT/1 ML VIAL SUB-Q SCH ×3 (06:38→21:59)
[2021-01-20 08:04] LABS: Hematocrit 25.9 % (35.5-45.6); Hemoglobin 8.4 gm/dl (11.8-15.2); Mean Corpuscular HGB Conc 32 % (32-34); Mean Corpuscular Volume 88 fl (84-94); Platelet Count 372 K/mm3 (140-440); Red Blood Count 2.94 M/mm3 (3.65-5.03); Red Cell Distribution Width 17.2 % (13.2-15.2)
[2021-01-20 08:22] LABS: Calcium 8.4 mg/dL (8.4-10.2)
[2021-01-20 08:34] LABS: Bacteria,Urine 1+ /HPF (Negative); Bilirubin,Urine NEG (Negative); Blood,Urine LG (Negative); Color,Urine Yellow (Yellow); Urobilinogen,Urine < 2.0 mg/dL (<2.0)
[2021-01-20] MEDS: dexmedeTOMIDine 1,000 MCG in SODIUM CHLORIDE 0.9% 250ML 250 ML IV SCH (08:54)
--- NOTE | 2021-01-20 09:40 | Discharge Summary ---
<MARGE LOVELLReagan - Last Filed: 01/20/21 10:10> Providers - Providers Date of Admission: 12/20/20 16:42 Date of discharge: 01/20/21 Attending physician: AVTAR MAYO MD 12/20/20 18:22 Consult to Physician [CONS] Routine Comment: Dr. Tena spoke with Dr. Cherry/ del Consulting Provider: EVELYN CHERRY Physician Instructions: Reason For Exam: CRITICAL CARE 12/20/20 21:58 Consult to Dietitian/Nutrition [CONS] Routine Physician Instructions: Reason For Exam: Reason for Consult: Evaluate nutritional intake 12/21/20 09:16 Consult to PICC Line RN [CONS] Urgent Reason For Exam: need for vasopressor Type Line:: PICC 12/22/20 11:54 Consult to Physician [CONS] Routine Comment: Consulting Provider: ARGENTINA BAIRD Physician Instructions: Reason For Exam: sepsis 12/23/20 08:37 Consult to Physician [CONS] Routine Comment: Consulting Provider: LOLITA LR Physician Instructions: Reason For Exam: JONI 12/24/20 15:13 Consult to Dietitian/Nutrition [CONS] Routine Physician Instructions: Reason For Exam: Reason for Consult: tpn 01/06/21 12:20 Consult to Dietitian/Nutrition [CONS] Routine Physician Instructions: Reason For Exam: cleared for trickle feeding by Dr. Tena Reason for Consult: Write/Manage Tube Feeding 01/16/21 15:25 Consult to Wound/ET Nurse [CONS] Routine Reason For Exam: wound eval 01/19/21 09:50 Consult to Dietitian/Nutrition [CONS] Stat Physician Instructions: Cr improving; diarrhea causing k/mg/na disturb Reason For Exam: PLEASE change TF due to ongoing diarrhea; Reason for Consult: Write/Manage Tube Feeding Primary care physician: [employer] Hospitalization Condition: Stable Hospital course: HPI This is a 60-year-old male with obesity, hypertension, nicotine dependence, PVD s/p stent placement on dual antiplatelet therapy, hyperlipidemia, OA, GERD, ventral hernia with SBO who presents to the emergency department on 12/20 with severe, diffuse, worsened with movement, slightly relieved with rest abdominal pain rated at 10/10 with decreased oral intake, nausea and multiple episodes of vomiting. Patient underwent a CT of his abdomen/pelvis and was found to have evidence of small bowel obstruction as well as clinical findings consistent with acute peritonitis. 12/20: Patient was admitted to the hospital service with acute peritonitis and incarcerated ventral hernia with consults to [facility] and surgery. 12/21: Patient is status post ex lap, extensive lysis of adhesions, small bowel resection, peritoneal lavage and ABThera abdominal wound VAC placement by Dr. Tena and Dr. Brumfield on 12/20 with removal of a 70 cm segment of necrotic small bowel. Patient was intubated and sedated on propofol 4 at the time of my examination on Assist-control, rate of 24, PEEP of 6, tidal volume of 550 and FiO2 35%. Patient needed to be deeply sedated and there was a became hypotensive. Patient was started on patient for support with Levophed and received bolus of IVF. 12/22: Patient was febrile to 103 and vancomycin and Diflucan were added by [facility] and infectious disease was consulted and they increased Zosyn and stop vancomycin. Patient was given additional 1 L bolus today for CVP goal of 10-12. At the time of examination patient was on Levophed, propofol and fentanyl CMV tidal volume 500, rate of 24, PEEP of 6 and FiO2 65%. Plan for OR tomorrow 12/23: Patient Cr/BUN noted to be increased and nephrology was consulted. ID decreased the zosyn dose d/r renal function. Urine studies ordered. [place] placed today. LR boluses per [facility], TPN to be started. Fractional excretion of sodium calculated at 0.16 indicating prerenal state 12/24: Patient is status post abdominal exploration, small bowel resection of 4 to 5 cm segment of dusky small bowel, peritoneal lavage and ABThera wound VAC placement on 12/23 with surgery, leukocytosis and renal function is improving, worsening hypernatremia and hyperchloremia. Patient will be started on TPN today. We will place on SSI/Accu-Cheks every every 6 hours. Patient noted to be nearly maxed on Levophed and vasopressin was ordered. Remains sedated and on MV 12/25: Leukocytosis continues to improve, given Ca Gluconate today, Hypernatremia, Cr and hyperchorlemia slightly worsened today. Patient is sedated with propofol and fentanyl on CMV TV 500, Rate 24, Peep 6, FiO2 50%. He remains on levophed. Possible OR Saturday. 12/26 Patient presented with small bowel obstruction, is status post ex lap, extensive lysis of adhesions, small bowel resection, peritoneal lavage and ABThera abdominal wound VAC placement by Dr. Tena and Dr. Brumfield on 12/20 with removal of a 70 cm segment of necrotic small bowel. Was taken back to OR on 12/23 s/p Abdominal exploration, Small bowel resection, Peritoneal lavage, ABThera wound VAC placement. he is still having fever. Poss going to OR again today. Sepsis managed by ID. He is on Diflucan, Zosyn. He is on Levophed. 6/ s/p ex lap, extensive lysis of adhesions, small bowel resection (removal of 70 cm necrotic small bowel segment), peritoneal lavage and ABThera abdominal wound VAC placement. Still having fever Still on vent 12/28: Patient is orally intubated with AC mode ventilation rate 24, tidal volume 500, FiO2 75% and PEEP of 6. POD#8 s/p ex lap and small bowel resection for necrotic bowel secondary to incarcerated ventral hernia left with open abdomen. POD#5 s/p abdominal exploration with segmental small bowel resection. abthera placement POD#2 s/p abdominal exploration, small bowel resection for ischemia, abthera p lacement -CCM, surgery, infectious disease, nephrology consulted, appreciate recommendations -IV abx per ID: Zosyn, fluconazole -NGT to LIWS -NPO for now, TPN -SSI, Accucheck q6 -Vasopressor support with levophed -On mechanical ventilation, wean as tolerated, VAP bundle -Sedated with propofol and analgesia with fentanyl drip -Trend CBC, BMP, Mg, Phos -GI/DVT prophylaxis: PPI, SCDs to bilateral lower extremities while in bed, avoid chemical anticoagulation to cleared by surgery 12/29: Patient underwent abdominal exploration, small bowel resection, small bowel anastomosis and ABThera wound VAC placement this a.m. Patient remains on AC mode ventilation with a rate of 24, tidal volume 500, FiO2 65% and PEEP of 6. Continue antibiotics per ID recommendations. Continue vasopressor support as needed. Continue TPN for nutritional support. 12/30: Patient currently with AC mode ventilation rate of 24, tidal volume 500, FiO2 60% and PEEP of 6. Patient underwent further surgery yesterday with another abdominal exploration, small bowel resection, small bowel anastomosis and replacement of the ABThera wound VAC. Patient continues to require vasopressor support with vasopressin and Levophed. Continue TPN for nutrition. Continue propofol and fentanyl for sedation. Continue Zosyn per ID recommendations. INITIATED ON HD PER NEPHRO 12: Patient currently with AC mode ventilation rate of 24, tidal volume 500, FiO2 50% and PEEP of 6. POD#12 s/p ex lap and small bowel resection for necrotic bowel secondary to incarcerated ventral hernia left with open abdomen. POD#9 s/p abdominal exploration with segmental small bowel resection. abthera placement POD#3 s/p abdominal exploration, small bowel resection for ischemia, abthera placement POD#2 s/p abdominal exploration with small bowel anastamosis and abthera vac placement Continue hemodialysis per nephrology recommendations. Surgery plans for abdominal washout and bowel examination on Saturday. If anastamosis looks viable and no other issues, surgery plans to close his abdomen. 01/01: Continue current ventilator settings per pulmonary monitor ABG. Continue antibiotics per ID recommendations. Surgery plans for abdominal washout and bowel examination. If anastamosis looks viable and no other issues, surgery plans to close his abdomen. Wean pressors to maintain MAP > 65. Continue TPN for nutritional support. Hemodialysis per nephrology recommendations. Prognosis remains guarded. 01/02: At the time my examination patient was only on vasopressin for vasopressor support, sedated on 30 mcg of propofol and 4 mcg of fentanyl. Patient was on CMV tidal volume 500, rate of 12, PEEP of 10 and 50% FiO2. Patient remains on TPN and with NG tube to low intermittent suction. Patient underwent a myocutaneous flap creation, abdominal wall component separation and placement of phasix mesh with surgery yesterday where his abdomen was closed and 2 LAURA drains were placed on either side of his midline between fascia and subcu tissue. Per infectious his antibiotics will continue until 5 days postop from a final surgery. Patient has increasing leukocytosis which are likely reactive to surgery and patient will have hemodialysis today for clearance and volume removal. Patient sedation and mechanical ventilation will be weaned for extubation. 01/03: Patient H/H is 6.2/18.5 and he is being transfused 2 units PRBC with hemodialysis today. Patient has slight hypokalemia but TPN has been adjusted to address potassium. Patient continues to have hyponatremia, hypochloremia and hyperphosphatemia closely improved. The time my examination patient sedated on fentanyl and propofol and LAURA drainage noted to be more serosanguineous. Patient was on assist control with TV 500, PEEP of 8, rate of 28 and FiO2 40%. Patient remains off vasopressor support. No acute overnight events reported 01/04: Patient sedated on propofol and fentanyl. RN reported bowel movement overnight. Precedex drip started. NG tube clamped and may start trickle tube feedings later if patient does not have high residuals. CCM continues to wean ventilation as tolerated. On my exam patient is on CMV tidal volume 500 rate of 28, PEEP of 8 and 40% FiO2. Patient is having periods of agitation and FiO2 had to be increased for hypoxia. Mucor species in tracheal aspirate but ID believes this is colonization. 01/05: Patient is severely agitated and received multiple IV push fentanyl. Patient was ultimately started on propofol. He received hemodialysis today. Patient had approximately 400 mL of NG output overnight. NG tube continues to be on suction. Leukocytosis worsened today. 01/06: Patient is agitated despite fentanyl pushes and Dilaudid was ordered, patient noted to be anemic with a hemoglobin of 6.5 and will be transfused 1 unit PRBC today. Nephrology does not plan to dialyze him today and to keep him on Saturday, , Saturday schedule. No acute events reported overnight. Patient NG tube residuals continue to decrease and surgery has cleared for trickle tube feeds which has been communicated to dietitian. 01/07: This this morning H/H resulted at 6.7/20.1 after 1 unit PRBC 6.7/21.8. Patient's ABG today shows respiratory acidosis and vent settings have been changed by [facility]. Patient should receive hemodialysis today as he is on Saturday schedule. Overnight RN reported 700 mL of NG tube output over 12 hours. We will hold off on trickle feeds and continue TPN. At the time of my examination patient was sedated on propofol, fentanyl, Precedex and on CMV tidal volume 550, rate of 10, PEEP of 8 and 35% FiO2. We will order coags and stool guaiac to further investigate anemia. -01/09 stool pos for guiac; CT Chest/abd/pelvis -01/10: Patient this morning with elevated BP, likely secondary to pain vs ?Hx of Htn, Hydralazine PRN ordered and added to the patient, will monitor. Continue pain control. Wound care management and vent weaning when ok with surgery and [employer]ographic Services Specialist 01/12: Continue supportive care including pain control. Monitor for bowel movement. Continue off antibiotics per ID monitor. Encyclopedia Research Worker following for HD. 01/13/21 patient is seen and examined. Patient is still on vent. Wean to extubate as per critical care. Patient is off antibiotic as per infectious disease. Status post dialysis catheter placed in the right IJ. HD as per nephrology. Continue current management. Recheck CBC BMP in the morning. 01/14/21 patient seen and examined. Patient is still on vent. Patient is agitated. We will try to wean the sedation. We will start metoprolol 5 mg p.o. every 8 hours as needed for blood pressure. Patient is off antibiotic as per infectious disease. Continue hemodialysis as per nephrology. Continue current management. Critical care follow-up. Prognosis is guarded. Recheck CBC BMP in the morning 01/15: Remains with guarded prognosis, no clear evidence of renal recovery, still on the vent. Monitor H/H and repeat CT A/P if downward trend. Replace K. 01/16: Patient is hypokalemic today at 2.9, patient's urinalysis reveals UTI and patient is already on cefepime, vancomycin and fluconazole per ID. Patient's urine output noted to be 0667-6063 mL over the past couple days. Nephrology requested to hold off removal of Haley catheter as the patient seems to be in the diuretic phase of ATN and will withhold dialysis for now and evaluate. At the time my examination patient is sedated on propofol and Precedex on CMV tidal line 500, rate of 24, PEEP of 6 and 30% FiO2. Patient was febrile last night with a T-max of 102.7. Patient was cultured overnight. Wound care consult for abd wound with purulent drainage, culture sent. 01/17: Patient is again hypokalemic and hypomagnesemic which was repleted with K-Phos and KCl overnight. Patient has hypernatremia. Nephrology has started the patient on hypotonic IVF with potassium. Right IJ Vas-Cath ordered to be removed. Patient's abdominal culture and blood cultures from 01/16 are growing gram-negative rods. The time my examination patient was on propofol and dexamethasone on assist control. T-max 102.7. ETT repositioned. 01/18 Discharge planning for LTAC; weaning propofol 01/19 no acute events overnight 01/20: LTACH today, electrolyte disarray and renal function improving. Assessment and plan: This is a 60-year-old male with obesity, hypertension, nicotine dependence, PVD s/p stent placement on dual antiplatelet therapy, hyperlipidemia, OA, GERD, ventral hernia and small bowel obstruction who was admitted with small bowel obstruction and peritonitis Neuro Postoperative pain; hx OA; hx acute/chronic abd pain; hx narcotic use at home due to a/c pain; hx med non adherence -IV PRN pain meds -avoid oversedation as they will inhibit his SBT -continuing to wean propofol and dex but pt does get agitated and pulls at lines and tubes 12 lead ordered to assess QT will add PO seroquel BID today- monitor response; hope is this will facilitate d/c of propofol -PRN pain medications -has been getting dilaudid scheduled every 4 hours for pain; for post op pain and high opiate use/tolerance; Dr Cherry would like to continue -normalize day night to limit delirium -remains in soft wrist restraints and mittens -nodding appropriately -following commands -moving all extremities -not that due to pts chronic pain he was on opiates at home (per family he took more than was prescribed); per his brother he would not fill his non pain medications so that he could get his opiates; hopefully now that his hernias have been repaired this will not be an ongoing issue p the immed. post op recovery period. -Pt has a son (disclosed late in admission), pt lives with his mother; pt has a brother that is has been involved in care decisions. The brother states their mother is of age and not well herself so she has deferred care decisions to him Discharge planning per medical case manager pending LTAC evaluation and placement CV on no pressors SR Hypertension -resume home meds for bp when appropriate -metop PRN hx CAD with stent -resume home asa and plavix when appropriate; was also on pletal hx Hyperlipidemia -resume home statin when appropriate Resp Post op hypoxic respiratory failure -intubated 12/20 -remains intubated -consider trach -daily sedation holiday -vent weaning and conditioning to PS as tolerated; daily per RT -placed on 06/26 PS and inc RR to 40's - back to CMV- see RT flow sheet for settings -VBG noted this AM -chest xray noted this AM- no localized infiltrate or consolidation -ETT repositioned 24 cm at teeth is 1.5 cm above henrietta; pt has a lot of secretions today- white and thin in nature xray obtained post repositioning RT changed ETT pond Nicotine dependence -Smoking cessation counseling when appropriate GI Small bowel obstruction with peritonitis, incarcerated Ventral hernia s/p repair -12/20 CT abdomen/pelvis showed high-grade small bowel obstruction related to severe complex ventral abdominal wall hernias, progressed in appearance from prior exam from 09/12/2020 without evidence of pneumonitis or pneumoperitoneum, patchy bibasilar airspace disease concern for atypical infectious process/pneumonitis -12/20 s/p ex lap, extensive lysis of adhesions, small bowel resection (removal of 70 cm necrotic small bowel segment), peritoneal lavage and ABThera abdominal wound VAC placement -12/23 s/p abdominal exploration, small bowel resection, peritoneal lavage, ABThera wound VAC placement -12/26 s/p ex lap, small bowel resection, peritoneal lavage, ABThera wound VAC placement -12/29 s/p ex lap, small bowel resection, small bowel anastomosis and ABThera wound VAC placement -01/01 s/p myocutaneous flap creation, abdominal wall component separation and placement of phasix mesh with surgery yesterday where his abdomen was closed and 2 LAURA drains were placed on either side of his midline between fascia and subcu tissue. -12/30 initiated on HD by nephro -01/09 CT abdomen/pelvis with contrast shows large organized virtually bland appearing fluid collection along the anterior abdomen measuring up to 29 cm in the craniocaudal dimension and 2.6 cm in transverse dimension which may reflect postoperative seroma or hematoma, no associated gas to suggest superimposed infection, no contrast is seen within the collection to suggest bowel perforation -01/09 CT chest with contrast shows CHF with small left and trace right pleural effusions and diffuse groundglass opacities in airspace consolidation consistent with pulmonary edema (superimposed multifocal pneumonia is not excluded), diffuse anasarca likely related to third spacing of fluid. Midline abdominal incision -Ulceration to midline abdominal incision with purulent drainage -01/17 wound culture sent with primary growth of gram-negative rods -WOCN consulted, appreciate recommendations -Wound care per nursing -Dr Tena aware of wound status-continue wound care per WOCN; nav should remain in for now; LAURA drains to remain until pt extubated Protein calorie malnutrition -S/p TPN- discontinued as he is tolerating TF -dobhoff replaced this AM- KUB ordered -Tube feedings per nutrition recs changed TF due to diarrhea fiber was also added yesterday hx GERD -continue PPI diarrhea -appears to be TF diarrhea -fiber to continue -BMS in place- remove steffen -consider cdiff- will discuss with ID Acute Kidney Injury, due to ATN improving; hypoMg; hypoK; hyperna -12/23 fracture excretion of sodium calculated at 0.16 secondary prerenal state -nephrology following -HD d/c given renal recovery -Strict intake and output -net neg 2L over 24 hours; polyuria continues -Daily weights -Trend Cr -polyuria Hypernatremia, improving -D5W with K scheduled continues -Trend sodium -FWF for Na Hypokalemia, resolved -Trend potassium -Replete as necessary -K given IV and PO today -scheduled BID dosing ordered x 3 doses Hypomagnesemia- resolved -s/p 4GM Mg Metabolic Acidosis, Gap- improving ABG in AM Hypoalbuminemia Heme Anemia -Transfuse for hemoglobin less than 7 -01/09 stool occult positive -GI aware -Trend Hgb -no bleeding on exam (stools taylor in color) VTE prophylaxis -cont SCD and ASCENCION ID Septic Shock on admit; peritonitis; leukocytosis: bacteremia/wound/UTI -ID following -Antibiotic therapy per ID -changed to dawna 01-18 -follow cultures -urine culture sent -yg silva 01-18 -haley changed 01-18 -12/20 tracheal aspirate with mucus species which does not to be treated per ID -12/20 blood cultures x2 with no growth, urine culture with usual skin giorgio -01/16 blood cultures x2 with gram-negative jesus, abdominal wound culture with 2 species of gram-negative rods -> Pseudomonas aeruginosa, Proteus Penneri, A. baumannuu/Haemolyticus, Citrobacter Freundii complex -COVID-19 neg on admit -trend temp and WBC curve -wound care per WOCN and nursing Endo hx Obesity Hyperglycemia -SSI PRN -avoid hypoglycemia GI/DVT prophylaxis: PPI, SCDs and SQH Disposition: ICU Lines: PICC placed 01/05, Haley catheter; BMS Disposition: [id number] MEDICARE CERT LT[facility] Final Discharge Diagnosis (Prints w/discharge instructions): Postoperative pain; hx OA; hx acute/chronic abd pain; hx narcotic use at home due to a/c pain; hx med non adherence , Hypertension, history of CAD with stent, hyperlipidemia, postop hypoxic respiratory failure, nicotine dependence, small bowel obstruction with peritonitis, incarcerated ventral hernia status post repair, midline abdominal incision, protein calorie malnutrition, GERD, diarrhea, acute kidney injury due to ATN, hypomagnesemia, hypokalemia, hypernatremia, hypomagnesemia, metabolic acidosis, hypoalbuminemia, anemia, septic shock, peritonitis, leukocytosis, bacteremia, UTI, history of obesity, hyperglycemia Time spent for discharge: 45 Core Measure Documentation - Palliative Care Palliative Care/ Comfort Measures: Not Applicable - Core Measures Any of the following diagnoses?: none Exam - Constitutional Vitals: Temp Pulse Resp BP Pulse Ox 100.2 F H 91 H 20 142/70 93 01/20/21 04:36 01/20/21 08:49 01/20/21 08:49 01/20/21 08:49 01/20/21 08:49 General appearance: Present: other (Agitated on vent) - EENT Eyes: Present: PERRL, EOM intact ENT: hearing intact, poor dentition - Neck Neck: Present: normal ROM - Respiratory Respiratory effort: normal Respiratory: bilateral: diminished, rhonchi - Cardiovascular Rhythm: regular Heart Sounds: Present: S1 & S2. Absent: systolic murmur, diastolic murmur - Extremities Extremities: no ischemia, pulses intact, pulses symmetrical, normal temperature, normal color Extremity abnormal: edema Peripheral Pulses: within normal limits - Abdominal General gastrointestinal: Present: soft, non-tender, non-distended, normal bowel sounds Male genitourinary: Present: scrotal edema - Rectal Rectal Exam: other (bms in place) - Integumentary Integumentary: Present: warm (MLA inscion with dressing, LAURA x2), dry - Musculoskeletal Musculoskeletal: strength equal bilaterally - Psychiatric Psychiatric: cooperative, agitated - Neurologic Neurologic: no focal deficits, moves all extremities - Allied Health Allied health notes reviewed: nursing, RT, social work Plan Activity: advance as tolerated Diet: per dietitian instruction Wound: per your surgeon's advice, per wound nurse instructions Special Instructions: record daily weights, record daily BP diary, record blood sugar diary Additional Instructions: Care is being transferred to [facility] for continue vent weaning, nutriton and antibiotics Follow up with: HENRIETTA CONDON MD [Primary Care Provider] - 3-5 Days ARGENTINA BAIRD MD [Staff Physician] - 7 Days KENDRICK TENA MD [Staff Physician] - 7 Days <AVTAR MAYO - Last Filed: 01/20/21 18:41> Providers - Providers Date of Admission: 12/20/20 16:42 Attending physician: AVTAR MAYO MD 12/20/20 18:22 Consult to Physician [CONS] Routine Comment: Dr. Tena spoke with Dr. Cherry/ del Consulting Provider: EVELYN CHERRY Physician Instructions: Reason For Exam: CRITICAL CARE 12/20/20 21:58 Consult to Dietitian/Nutrition [CONS] Routine Physician Instructions: Reason For Exam: Reason for Consult: Evaluate nutritional intake 12/21/20 09:16 Consult to PICC Line RN [CONS] Urgent Reason For Exam: need for vasopressor Type Line:: PICC 12/22/20 11:54 Consult to Physician [CONS] Routine Comment: Consulting Provider: ARGENTINA BAIRD Physician Instructions: Reason For Exam: sepsis 12/23/20 08:37 Consult to Physician [CONS] Routine Comment: Consulting Provider: LOLITA LR Physician Instructions: Reason For Exam: JONI 12/24/20 15:13 Consult to Dietitian/Nutrition [CONS] Routine Physician Instructions: Reason For Exam: Reason for Consult: tpn 01/06/21 12:20 Consult to Dietitian/Nutrition [CONS] Routine Physician Instructions: Reason For Exam: cleared for trickle feeding by Dr. Tena Reason for Consult: Write/Manage Tube Feeding 01/16/21 15:25 Consult to Wound/ET Nurse [CONS] Routine Reason For Exam: wound eval 01/19/21 09:50 Consult to Dietitian/Nutrition [CONS] Stat Physician Instructions: Cr improving; diarrhea causing k/mg/na disturb Reason For Exam: PLEASE change TF due to ongoing diarrhea; Reason for Consult: Write/Manage Tube Feeding Primary care physician: [employer] Hospitalization Hospital course: Please see event note for further details. Patient was not discharged for brought back by ambulance transport Exam - Constitutional Vitals: Temp Pulse Resp BP Pulse Ox 99 F 97 H 25 H 139/79 98 01/20/21 12:00 01/20/21 13:18 01/20/21 11:00 01/20/21 13:18 01/20/21 13:18
[2021-01-20] MEDS: FAMOTIDINE 20 MG TAB PO SCH ×2 (09:46→21:58)
[2021-01-20] MEDS: POTASSIUM CHLORIDE 20 MEQ PACKET FEEDTUBE SCH (09:47)
[2021-01-20] MEDS: QUEtiapine 25 MG TAB PO SCH ×2 (09:47→21:58)
[2021-01-20] MEDS: FENTANYL 50 MCG/HR TD SCH (09:49)
--- NOTE | 2021-01-20 11:22 | Progress Note ---
Assessment and Plan Cultures: 12/20/2020 blood culture: No growth 12/20/2020 urine culture: Usual skin giorgio 12/20/2020 tracheal aspirate culture: Mucor 01/16/2021 blood culture: Acinetobacter, Citrobacter 01/16/2021 wound culture: Pseudomonas aeruginosa, Proteus A/P: 60-year-old male with obesity, hypertension, tobacco abuse, coronary artery disease, admitted to the hospital on 12/20/2020 with: #Fever, new sepsis secondary to GNR bacteremia: Source could be urine/line/abdominal wound. UA with significant pyuria. Lawrence and HD cath were removed. #Initial septic shock: Resolved. Secondary to intra-abdominal source, peritonitis. Patient with necrotic bowel secondary to incarcerated ventral hernia. Status post exploratory laparotomy, extensive adhesiolysis, small bowel resection and peritoneal lavage along with ABThera VAC placement on 12/20/2020, replacement 12/29/2020. Off pressors. Last surgery abdomen closure with mesh 12/20. Repeat CT 01/09/21 with large organized but bland appearing reactive fluid collection in anterior abdomen - seroma v/s hematoma. Surgery following. #JONI: Renally dose antibiotics. Was requiring hemodialysis, now off, creatinine better, nephrology following. #Morbid obesity #Mucor in tracheal aspirate is likely colonization. No treatment needed currently. Recs: -Meropenem discontinued -repeat blood cultures ordered -IV cefepime 2 g every 12 hours for 7 more days -If patient remains persistently febrile, consider CT abdomen and pelvis -Continue wound care for lower abdominal wound Lissette Rizzo MD, FACP [facility] ([facility] O: [phone] F: [phone] Subjective Date of service: 01/20/21 Principal diagnosis: SBO and necrosis of large part of small intestine Interval history: Intermittent fevers. Remains on the vent. Remains off pressors. Objective - Exam Narrative Exam: Physical Exam: Constitutional: sedated, intubated, on the vent Head, Ears, Nose: Normocephalic, atraumatic. External ears, nose normal Eyes: Conjunctivae/corneas clear. No icterus. No ptosis. Neck: intubated Oral: intubated Cardiovascular: S1, S2 + Respiratory: AE fair bilaterally and equal GI: midline dressing +, lower part with some slough, abdominal binder +, bowel sounds + drains + Musculoskeletal: scrotal edema Skin: No rash or abscess Hem/Lymphatic: No palpable cervical or supraclavicular nodes. No lymphangitis Psych: no agitation Neurological: sedated, intubated, on the vent, exam limited - Constitutional Vitals: Vital Signs Temp Pulse Resp BP Pulse Ox 98.8 F 93 H 25 H 116/80 96 01/20/21 08:00 01/20/21 11:00 01/20/21 11:00 01/20/21 11:00 01/20/21 11:00 Temperature -Last 24 Hours Temperature 98.8 F Temperature 100.2 F Temperature 100.2 F Temperature 99.2 F Temperature 101.2 F Temperature 98.6 F - Labs CBC & Chem 7: 01/20/21 07:25 01/20/21 07:25 Labs: Abnormal lab results 01/20/21 01/20/21 01/20/21 Range/Units 07:25 07:25 07:25 RBC 2.94 L (3.65-5.03) M/mm3 Hgb 8.4 L (11.8-15.2) gm/dl Hct 25.9 L (35.5-45.6) % RDW 17.2 H (13.2-15.2) % Sodium 149 H (137-145) mmol/L Chloride 113.8 H (98-107) mmol/L BUN 44 H (9-20) mg/dL Glucose 108 H (75-100) mg/dL Urine WBC (Auto) 30.0 H (0.0-6.0) /HPF
[2021-01-20] MEDS: CEFEPIME/NS 2 GM/100 ML 2 GM/100 ML BAG IV SCH ×2 (13:00→22:00)
--- NOTE | 2021-01-20 13:02 | Progress Note ---
Assessment and Plan 60 y/o male with abdominal catastrophe, s/p ex-lap with open abdomen, ventilated for pain control and support. 01/20/21: No objection to discharge to [facility]ACH today. Suggest continued scheduled pain control to help with weaning. Hopeful patient will not need trach. PT/OT at LTACH. Abx therapy per ID recs. Stable for transfer as he has no hemodynamic instability. 01/19/21: Discussed the patient on rounds with nurse at bedside and then with rest Interdisciplinary team. The persistent fever is bothersome, but it appears that we have a source from this abdominal wound. The ID docs have changed abx therapy to reflect this. Despite the patient having large amounts of urine and scrotal edema, will go ahead and remove the haley as this still could be a potential source for infection and persistent fever. Hemodynamically the arian ent is stable and we are treating with abx. I have no objection to discharge to LTACH facillity as long as they are comfortable with the transfer. We have restarted the scheduled pain meds to see if this can get him off all continued sedation. Agree with fiber and modification of tube feeds to help with diarrhea. Prognosis remains guarded. 01/18/21: Ok with transfer to LTACH. Spoke with nursing today about removal of vascath and changing of haley. Will be done. Abx per ID. asked [employer] to speak with surgery in regards to wound if any further therapy is needed. Defer to renal in regards to further therapy for electrolytes. 01/17/21: Will discuss renal but most likely vascath should be removed. Abx per ID. Renal has requested the haley stay in for urine output measurement and I agree. Waiting to here from insurer about LTACH as patient will need it for vent recovery and weaning. Monitor BP closely, may need to start replacing fluids 1:1. Will defer to renal on type of fluid given electrolyte imbalances. Prognosis still remains guarded. 01/16/21: Follow up blood cultures from last night. need to send ua as well. Renal holding HD today, hopeful patient is in the diuretic phase of ATN. Will have RT place patient on PSV trial today to see how he does. Hold on abx the rapy for right now. If cultures come back positive, will need to remove right IJ vascath which was just placed on Saturday at the suggestion of infection control and infectious days. completed letter for insurance for patient today, hopeful will be LTACH approved soon. 01/13/21: Place IJ vascath today. Added PRN dilaudid on lebron of scheduled dilaudid. Goal is to not put patient back on continuous drip for pain so that we can facilitate weaning. needs peer to peer for LTACH approval. Continue supportive measures. 01/12/21: Patient getting dialysis today. Continue to control pain, added PRN dilauded on top of scheduled dosing as patient still gets very agitated off diprovan. Will discuss with renal plans for future HD as ID and Infection control are very concerned about the groin catheter. If permanent dialysis then will ask that IR place permcath. if they feel intermittent, then will place IJ and remove femoral vascath. 01/11/21: Will increase pain regimen. Scheduled the dilaudid to q4 and add a fent patch. Would like to avoid drip as we are trying to actively wean patient from mechanical ventilation. Spoke with CM who states LTACH has accepted patient but we are waiting on insurance authorization. HgB is stable this am and reviewed surgery and IR recs. I do no think the area of fluid needs to be sampled. 01/10/21: Spoke with surgery this am about CT findings. Will discuss with IR their thoughts on fluid. Not concerned about infection in that area. Main reason for CT was to see if we could figure out where blood was going as it was coming out of his bottom or NG contents. This is appears to be something small and slow, like a venous issues. Hopefully it has sealed off at this time. HgB is up to 8 this am patient did not get blood on yesterday. Off fent now, will continue to wean Diprovan and Precedex as tolerated. Spoke with CM and asked to send out to LTACH's but will steal try to aggressively wean. Making good urine, hopeful kidney's will recover. Will ask renal about other ways to remove volume in third spacing (albumin, lasix etc). Prognosis still remains guarded. Continue TPN for now. 01/09/21: Will obtain contrasted CT of abdomen and pelvis to look for potential pockets of blood or bleeding. Spoke with renal and they feel kidneys are recovering but ok with HD tomorrow if needed post dye load. Will attempt to wean Fent more and use prn dilaudid. Will start reglan to help with gut motility. Hopeful to be off TPN soon. Once sedation is off, can start SBT's. CCT 31 minutes. Subjective Date of service: 01/20/21 Principal diagnosis: SBO and necrosis of large part of small intestine Interval history: No acute events. Going to LTACH today. Fever curve is better. Haley kept secondary to amount of urine output and concern with new skin break down on scrotum. Off diprovan. Failed PSV this am. Objective Vital Signs - 12hr 01/20/21 01/20/21 01/20/21 01:00 01:15 01:30 Temperature Pulse Rate 114 H 106 H 103 H Pulse Rate [ From Monitor] Respiratory Rate Blood Pressure 136/65 125/77 134/85 O2 Sat by Pulse 100 100 Oximetry 01/20/21 01/20/21 01/20/21 01:45 02:00 02:15 Temperature Pulse Rate 96 H 96 H 96 H Pulse Rate [ From Monitor] Respiratory Rate Blood Pressure 125/77 135/81 134/82 O2 Sat by Pulse 100 100 100 Oximetry 01/20/21 01/20/21 01/20/21 02:30 02:45 03:00 Temperature Pulse Rate 98 H 100 H 92 H Pulse Rate [ From Monitor] Respiratory Rate Blood Pressure 135/77 140/72 143/75 O2 Sat by Pulse 100 100 100 Oximetry 01/20/21 01/20/21 01/20/21 03:15 03:30 03:45 Temperature Pulse Rate 94 H 92 H 94 H Pulse Rate [ From Monitor] Respiratory Rate Blood Pressure 135/87 133/81 136/89 O2 Sat by Pulse 99 98 97 Oximetry 01/20/21 01/20/21 01/20/21 03:47 04:00 04:15 Temperature 100.2 F H Pulse Rate 93 H 92 H 93 H Pulse Rate [ 93 H From Monitor] Respiratory 30 H Rate Blood Pressure 136/89 130/85 146/84 O2 Sat by Pulse 98 98 99 Oximetry 01/20/21 01/20/21 01/20/21 04:31 04:36 04:45 Temperature 100.2 F H Pulse Rate 97 H 90 Pulse Rate [ From Monitor] Respiratory Rate Blood Pressure 134/82 132/74 O2 Sat by Pulse 100 100 Oximetry 01/20/21 01/20/21 01/20/21 05:00 05:15 05:30 Temperature Pulse Rate 88 91 H 82 Pulse Rate [ From Monitor] Respiratory Rate Blood Pressure 125/75 93/56 122/71 O2 Sat by Pulse 100 98 98 Oximetry 01/20/21 01/20/21 01/20/21 05:45 06:00 06:15 Temperature Pulse Rate 84 82 83 Pulse Rate [ From Monitor] Respiratory Rate Blood Pressure 131/75 109/66 118/74 O2 Sat by Pulse 99 94 94 Oximetry 01/20/21 01/20/21 01/20/21 06:30 06:45 07:01 Temperature Pulse Rate 86 87 87 Pulse Rate [ From Monitor] Respiratory 28 H 16 11 L Rate Blood Pressure 122/73 132/67 126/63 O2 Sat by Pulse 100 100 Oximetry 01/20/21 01/20/21 01/20/21 07:15 07:31 07:45 Temperature Pulse Rate 87 92 H 91 H Pulse Rate [ From Monitor] Respiratory 18 14 13 Rate Blood Pressure 127/71 116/56 135/77 O2 Sat by Pulse 100 100 73 L Oximetry 01/20/21 01/20/21 01/20/21 08:00 08:15 08:30 Temperature 98.8 F Pulse Rate 88 90 92 H Pulse Rate [ From Monitor] Respiratory 22 30 H 26 H Rate Blood Pressure 145/82 151/78 129/79 O2 Sat by Pulse 98 84 97 Oximetry 01/20/21 01/20/21 01/20/21 08:45 08:49 09:00 Temperature Pulse Rate 88 91 H 96 H Pulse Rate [ From Monitor] Respiratory 13 20 21 Rate Blood Pressure 142/70 142/70 135/75 O2 Sat by Pulse 100 93 100 Oximetry 01/20/21 01/20/21 01/20/21 09:15 09:30 09:45 Temperature Pulse Rate 94 H 90 89 Pulse Rate [ From Monitor] Respiratory 26 H 29 H 19 Rate Blood Pressure 138/73 140/68 124/78 O2 Sat by Pulse 96 100 90 Oximetry 01/20/21 01/20/21 01/20/21 10:01 10:15 10:30 Temperature Pulse Rate 91 H 97 H 98 H Pulse Rate [ From Monitor] Respiratory 21 27 H 26 H Rate Blood Pressure 126/69 124/75 136/77 O2 Sat by Pulse 100 100 100 Oximetry 01/20/21 01/20/21 10:45 11:00 Temperature Pulse Rate 93 H 93 H Pulse Rate [ From Monitor] Respiratory 27 H 25 H Rate Blood Pressure 124/75 116/80 O2 Sat by Pulse 100 96 Oximetry Constitutional: other (critically ill on ventilator and back on sedation) Eyes: non-icteric ENT: oropharynx moist Neck: supple Effort: normal Ascultation: Bilateral: other (coarse BS bilaterally) Cardiovascular: other (tachy, RR; no mrg) Gastrointestinal: other (abdomen open) Integumentary: normal Extremities: no cyanosis, no edema, pink and warm Neurologic: other (sedated) CBC and BMP: 01/20/21 07:25 01/20/21 07:25 ABG, PT/INR, D-dimer: ABG ABG pH 7.512 (7.320-7.450) H 01/19/21 05:00 POC ABG pCO2 32.5 mmHg (32.0-48.0) 01/19/21 05:00 ABG pCO2 37.9 mm Hg 01/05/21 03:50 POC ABG pO2 47.8 mmHg (83-108) L 01/19/21 05:00 ABG pO2 136.8 mm Hg (80.0-90.0) H 01/05/21 03:50 POC ABG HCO3 25.5 01/19/21 05:00 ABG O2 Saturation 84.4 (0-100) 01/19/21 05:00 PT/INR, D-dimer PT 15.4 Sec. (12.2-14.9) H 01/10/21 04:01 INR 1.17 (0.87-1.13) H 01/10/21 04:01 Abnormal lab findings: Abnormal Labs 12/20/20 12/20/20 12/20/20 13:58 13:58 13:58 WBC 41.1 H* RBC 5.59 H Hgb 16.2 H Hct 47.7 H MCV MCHC RDW 15.5 H Plt Count 486 H Lymph % (Auto) Eos % (Auto) Lymph # (Auto) Eos # (Auto) Seg Neutrophils % Seg Neuts % (Manual) Lymphocytes % (Manual) Seg Neutrophils # Seg Neutrophils # Man Lymphocytes # (Manual) Monocytes # (Manual) PT INR APTT Fibrinogen ABG pH POC ABG pCO2 POC ABG pO2 ABG pO2 ABG Base Excess ABG Hemoglobin ABG Oxyhemoglobin ABG Sodium ABG Potassium ABG Chloride ABG Glucose Carboxyhemoglobin Sodium 130 L Potassium Chloride 80.7 L Carbon Dioxide BUN 37 H Creatinine Glucose 101 H POC Glucose Lactic Acid 3.20 H* Calcium Ionized Calcium Phosphorus Magnesium AST Alkaline Phosphatase 142 H Total Protein 6.2 L Albumin 2.2 L Triglycerides Arterial Blood Glucose Arterial Blood Ionized Calcium Urine WBC (Auto) Urine Creatinine Crossmatch 12/20/20 12/20/20 12/20/20 13:58 20:35 21:30 WBC RBC Hgb Hct MCV MCHC RDW Plt Count Lymph % (Auto) Eos % (Auto) Lymph # (Auto) Eos # (Auto) Seg Neutrophils % Seg Neuts % (Manual) Lymphocytes % (Manual) Seg Neutrophils # Seg Neutrophils # Man Lymphocytes # (Manual) Monocytes # (Manual) PT INR APTT 49.4 H Fibrinogen ABG pH 7.313 L POC ABG pCO2 POC ABG pO2 ABG pO2 104.4 H ABG Base Excess ABG Hemoglobin ABG Oxyhemoglobin ABG Sodium ABG Potassium ABG Chloride ABG Glucose Carboxyhemoglobin Sodium Potassium Chloride Carbon Dioxide BUN Creatinine Glucose POC Glucose 122 H Lactic Acid Calcium Ionized Calcium Phosphorus Magnesium AST Alkaline Phosphatase Total Protein Albumin Triglycerides Arterial Blood Glucose Arterial Blood Ionized Calcium Urine WBC (Auto) Urine Creatinine Crossmatch 12/21/20 12/21/20 12/21/20 03:06 08:14 08:14 WBC 23.9 H RBC Hgb Hct MCV MCHC RDW 15.7 H Plt Count Lymph % (Auto) Eos % (Auto) Lymph # (Auto) Eos # (Auto) Seg Neutrophils % Seg Neuts % (Manual) 91.0 H Lymphocytes % (Manual) 3.0 L Seg Neutrophils # Seg Neutrophils # Man 21.7 H Lymphocytes # (Manual) 0.7 L Monocytes # (Manual) 1.4 H PT INR APTT Fibrinogen ABG pH 7.464 H POC ABG pCO2 POC ABG pO2 202.9 H ABG pO2 ABG Base Excess ABG Hemoglobin ABG Oxyhemoglobin ABG Sodium 133.7 L ABG Potassium ABG Chloride ABG Glucose 122 H Carboxyhemoglobin Sodium Potassium Chloride Carbon Dioxide BUN 46 H Creatinine Glucose 103 H POC Glucose Lactic Acid Calcium 6.6 L D Ionized Calcium Phosphorus Magnesium AST Alkaline Phosphatase Total Protein 5.4 L Albumin 2.3 L Triglycerides Arterial Blood Glucose 122 H Arterial Blood Ionized Calcium 3.5 L Urine WBC (Auto) Urine Creatinine Crossmatch 12/21/20 12/21/20 12/22/20 17:18 21:28 04:45 WBC 22.9 H RBC Hgb Hct MCV MCHC RDW 15.7 H Plt Count Lymph % (Auto) Eos % (Auto) Lymph # (Auto) Eos # (Auto) Seg Neutrophils % Seg Neuts % (Manual) Lymphocytes % (Manual) Seg Neutrophils # Seg Neutrophils # Man Lymphocytes # (Manual) Monocytes # (Manual) PT INR APTT Fibrinogen ABG pH POC ABG pCO2 POC ABG pO2 ABG pO2 ABG Base Excess ABG Hemoglobin ABG Oxyhemoglobin ABG Sodium ABG Potassium ABG Chloride ABG Glucose Carboxyhemoglobin Sodium Potassium Chloride Carbon Dioxide BUN Creatinine Glucose POC Glucose 108 H Lactic Acid Calcium Ionized Calcium 4.1 L Phosphorus Magnesium AST Alkaline Phosphatase Total Protein Albumin Triglycerides Arterial Blood Glucose Arterial Blood Ionized Calcium Urine WBC (Auto) Urine Creatinine Crossmatch 12/22/20 12/22/20 12/22/20 04:45 05:00 11:38 WBC RBC Hgb Hct MCV MCHC RDW Plt Count Lymph % (Auto) Eos % (Auto) Lymph # (Auto) Eos # (Auto) Seg Neutrophils % Seg Neuts % (Manual) Lymphocytes % (Manual) Seg Neutrophils # Seg Neutrophils # Man Lymphocytes # (Manual) Monocytes # (Manual) PT INR APTT Fibrinogen ABG pH 7.462 H POC ABG pCO2 POC ABG pO2 ABG pO2 ABG Base Excess ABG Hemoglobin ABG Oxyhemoglobin ABG Sodium ABG Potassium ABG Chloride ABG Glucose 118 H Carboxyhemoglobin Sodium 146 H Potassium Chloride Carbon Dioxide BUN 45 H Creatinine Glucose 116 H POC Glucose 115 H Lactic Acid Calcium 6.9 L Ionized Calcium Phosphorus Magnesium AST Alkaline Phosphatase Total Protein Albumin Triglycerides Arterial Blood Glucose 118 H Arterial Blood Ionized Calcium 3.8 L Urine WBC (Auto) Urine Creatinine Crossmatch 12/22/20 12/23/20 12/23/20 23:26 04:43 04:45 WBC 22.2 H RBC Hgb Hct MCV MCHC RDW 16.1 H Plt Count Lymph % (Auto) Eos % (Auto) Lymph # (Auto) Eos # (Auto) Seg Neutrophils % Seg Neuts % (Manual) Lymphocytes % (Manual) Seg Neutrophils # Seg Neutrophils # Man Lymphocytes # (Manual) Monocytes # (Manual) PT INR APTT Fibrinogen ABG pH POC ABG pCO2 POC ABG pO2 ABG pO2 ABG Base Excess ABG Hemoglobin ABG Oxyhemoglobin ABG Sodium 147.4 H ABG Potassium ABG Chloride 112.0 H ABG Glucose 130 H Carboxyhemoglobin 0.4 L Sodium Potassium Chloride Carbon Dioxide BUN Creatinine Glucose POC Glucose 110 H Lactic Acid Calcium Ionized Calcium Phosphorus Magnesium AST Alkaline Phosphatase Total Protein Albumin Triglycerides Arterial Blood Glucose 130 H Arterial Blood Ionized Calcium 3.8 L Urine WBC (Auto) Urine Creatinine Crossmatch 12/23/20 12/23/20 12/23/20 04:45 05:17 11:22 WBC RBC Hgb Hct MCV MCHC RDW Plt Count Lymph % (Auto) Eos % (Auto) Lymph # (Auto) Eos # (Auto) Seg Neutrophils % Seg Neuts % (Manual) Lymphocytes % (Manual) Seg Neutrophils # Seg Neutrophils # Man Lymphocytes # (Manual) Monocytes # (Manual) PT INR APTT Fibrinogen ABG pH POC ABG pCO2 POC ABG pO2 ABG pO2 ABG Base Excess ABG Hemoglobin ABG Oxyhemoglobin ABG Sodium ABG Potassium ABG Chloride ABG Glucose Carboxyhemoglobin Sodium 154 H D Potassium Chloride 110.9 H Carbon Dioxide BUN 54 H Creatinine 1.8 H Glucose 115 H POC Glucose 116 H 130 H Lactic Acid Calcium 7.0 L Ionized Calcium Phosphorus Magnesium AST Alkaline Phosphatase Total Protein Albumin Triglycerides Arterial Blood Glucose Arterial Blood Ionized Calcium Urine WBC (Auto) Urine Creatinine Crossmatch 12/23/20 12/23/20 12/23/20 12:15 12:15 23:15 WBC RBC Hgb Hct MCV MCHC RDW Plt Count Lymph % (Auto) Eos % (Auto) Lymph # (Auto) Eos # (Auto) Seg Neutrophils % Seg Neuts % (Manual) Lymphocytes % (Manual) Seg Neutrophils # Seg Neutrophils # Man Lymphocytes # (Manual) Monocytes # (Manual) PT INR APTT Fibrinogen ABG pH POC ABG pCO2 POC ABG pO2 ABG pO2 ABG Base Excess ABG Hemoglobin ABG Oxyhemoglobin ABG Sodium ABG Potassium ABG Chloride ABG Glucose Carboxyhemoglobin Sodium 154 H Potassium Chloride Carbon Dioxide BUN Creatinine 1.5 H Glucose POC Glucose 132 H Lactic Acid Calcium Ionized Calcium Phosphorus Magnesium AST Alkaline Phosphatase Total Protein Albumin Triglycerides Arterial Blood Glucose Arterial Blood Ionized Calcium Urine WBC (Auto) Urine Creatinine 78.1 H Crossmatch 12/24/20 12/24/20 12/24/20 04:19 04:30 04:30 WBC 18.3 H RBC Hgb Hct MCV MCHC RDW 16.5 H Plt Count Lymph % (Auto) Eos % (Auto) Lymph # (Auto) Eos # (Auto) Seg Neutrophils % Seg Neuts % (Manual) Lymphocytes % (Manual) Seg Neutrophils # Seg Neutrophils # Man Lymphocytes # (Manual) Monocytes # (Manual) PT INR APTT Fibrinogen ABG pH POC ABG pCO2 POC ABG pO2 ABG pO2 ABG Base Excess ABG Hemoglobin ABG Oxyhemoglobin ABG Sodium 149.7 H ABG Potassium ABG Chloride 116.0 H ABG Glucose 180 H Carboxyhemoglobin Sodium 155 H Potassium Chloride 116.1 H Carbon Dioxide BUN 52 H Creatinine 1.5 H Glucose 175 H POC Glucose Lactic Acid Calcium 6.8 L Ionized Calcium Phosphorus Magnesium 3.00 H AST Alkaline Phosphatase Total Protein 5.7 L Albumin 1.8 L Triglycerides Arterial Blood Glucose 180 H Arterial Blood Ionized Calcium 3.7 L Urine WBC (Auto) Urine Creatinine Crossmatch 12/24/20 12/24/20 12/24/20 05:24 11:21 18:05 WBC RBC Hgb Hct MCV MCHC RDW Plt Count Lymph % (Auto) Eos % (Auto) Lymph # (Auto) Eos # (Auto) Seg Neutrophils % Seg Neuts % (Manual) Lymphocytes % (Manual) Seg Neutrophils # Seg Neutrophils # Man Lymphocytes # (Manual) Monocytes # (Manual) PT INR APTT Fibrinogen ABG pH POC ABG pCO2 POC ABG pO2 ABG pO2 ABG Base Excess ABG Hemoglobin ABG Oxyhemoglobin ABG Sodium ABG Potassium ABG Chloride ABG Glucose Carboxyhemoglobin Sodium Potassium Chloride Carbon Dioxide BUN Creatinine Glucose POC Glucose 153 H 154 H 133 H Lactic Acid Calcium Ionized Calcium Phosphorus Magnesium AST Alkaline Phosphatase Total Protein Albumin Triglycerides Arterial Blood Glucose Arterial Blood Ionized Calcium Urine WBC (Auto) Urine Creatinine Crossmatch 12/25/20 12/25/20 12/25/20 04:00 07:00 07:00 WBC 17.6 H RBC Hgb Hct MCV MCHC 31 L RDW 16.0 H Plt Count Lymph % (Auto) Eos % (Auto) Lymph # (Auto) Eos # (Auto) Seg Neutrophils % Seg Neuts % (Manual) Lymphocytes % (Manual) Seg Neutrophils # Seg Neutrophils # Man Lymphocytes # (Manual) Monocytes # (Manual) PT INR APTT Fibrinogen ABG pH POC ABG pCO2 POC ABG pO2 ABG pO2 ABG Base Excess ABG Hemoglobin ABG Oxyhemoglobin ABG Sodium 152.5 H ABG Potassium ABG Chloride 119.0 H ABG Glucose 136 H Carboxyhemoglobin Sodium Potassium Chloride Carbon Dioxide BUN Creatinine Glucose POC Glucose Lactic Acid Calcium Ionized Calcium Phosphorus Magnesium 2.70 H AST Alkaline Phosphatase Total Protein Albumin Triglycerides Arterial Blood Glucose 136 H Arterial Blood Ionized Calcium 3.7 L Urine WBC (Auto) Urine Creatinine Crossmatch 12/25/20 12/25/20 12/25/20 07:00 11:24 16:32 WBC RBC Hgb Hct MCV MCHC RDW Plt Count Lymph % (Auto) Eos % (Auto) Lymph # (Auto) Eos # (Auto) Seg Neutrophils % Seg Neuts % (Manual) Lymphocytes % (Manual) Seg Neutrophils # Seg Neutrophils # Man Lymphocytes # (Manual) Monocytes # (Manual) PT INR APTT Fibrinogen ABG pH POC ABG pCO2 POC ABG pO2 ABG pO2 ABG Base Excess ABG Hemoglobin ABG Oxyhemoglobin ABG Sodium ABG Potassium ABG Chloride ABG Glucose Carboxyhemoglobin Sodium 156 H Potassium Chloride 118.0 H Carbon Dioxide BUN 44 H Creatinine 1.7 H Glucose 126 H POC Glucose 110 H 126 H Lactic Acid Calcium 6.9 L Ionized Calcium Phosphorus Magnesium AST Alkaline Phosphatase Total Protein Albumin Triglycerides Arterial Blood Glucose Arterial Blood Ionized Calcium Urine WBC (Auto) Urine Creatinine Crossmatch 12/25/20 12/25/20 12/26/20 18:18 23:23 03:30 WBC RBC Hgb Hct MCV MCHC RDW Plt Count Lymph % (Auto) Eos % (Auto) Lymph # (Auto) Eos # (Auto) Seg Neutrophils % Seg Neuts % (Manual) Lymphocytes % (Manual) Seg Neutrophils # Seg Neutrophils # Man Lymphocytes # (Manual) Monocytes # (Manual) PT INR APTT Fibrinogen ABG pH POC ABG pCO2 POC ABG pO2 ABG pO2 ABG Base Excess ABG Hemoglobin 11.8 L ABG Oxyhemoglobin ABG Sodium ABG Potassium 4.7 H ABG Chloride 114.0 H ABG Glucose 132 H Carboxyhemoglobin Sodium 151 H Potassium Chloride 114.3 H Carbon Dioxide BUN 51 H Creatinine 2.6 H D Glucose 122 H POC Glucose 115 H Lactic Acid Calcium 6.4 L Ionized Calcium Phosphorus Magnesium AST Alkaline Phosphatase Total Protein Albumin Triglycerides Arterial Blood Glucose 132 H Arterial Blood Ionized Calcium 3.6 L Urine WBC (Auto) Urine Creatinine Crossmatch 12/26/20 12/26/20 12/26/20 04:55 06:01 06:01 WBC 21.6 H RBC Hgb Hct MCV MCHC 31 L RDW 16.5 H Plt Count 136 L Lymph % (Auto) Eos % (Auto) Lymph # (Auto) Eos # (Auto) Seg Neutrophils % Seg Neuts % (Manual) Lymphocytes % (Manual) Seg Neutrophils # Seg Neutrophils # Man Lymphocytes # (Manual) Monocytes # (Manual) PT INR APTT Fibrinogen ABG pH POC ABG pCO2 POC ABG pO2 ABG pO2 ABG Base Excess ABG Hemoglobin ABG Oxyhemoglobin ABG Sodium ABG Potassium ABG Chloride ABG Glucose Carboxyhemoglobin Sodium 173 H* D Potassium 6.1 H* D Chloride 137.0 H Carbon Dioxide BUN 73 H Creatinine 3.8 H Glucose 125 H POC Glucose 112 H Lactic Acid Calcium 6.2 L Ionized Calcium Phosphorus 5.70 H D Magnesium 2.90 H AST Alkaline Phosphatase Total Protein Albumin Triglycerides Arterial Blood Glucose Arterial Blood Ionized Calcium Urine WBC (Auto) Urine Creatinine Crossmatch 12/26/20 12/26/20 12/26/20 08:33 11:19 22:00 WBC RBC Hgb Hct MCV MCHC RDW Plt Count Lymph % (Auto) Eos % (Auto) Lymph # (Auto) Eos # (Auto) Seg Neutrophils % Seg Neuts % (Manual) Lymphocytes % (Manual) Seg Neutrophils # Seg Neutrophils # Man Lymphocytes # (Manual) Monocytes # (Manual) PT INR APTT Fibrinogen ABG pH POC ABG pCO2 POC ABG pO2 ABG pO2 ABG Base Excess ABG Hemoglobin ABG Oxyhemoglobin ABG Sodium ABG Potassium ABG Chloride ABG Glucose Carboxyhemoglobin Sodium 147 H D Potassium 5.8 H D Chloride 108.8 H Carbon Dioxide 21 L BUN 68 H 68 H Creatinine 3.8 H 4.1 H Glucose 144 H 154 H POC Glucose 144 H Lactic Acid Calcium 6.5 L 5.8 L* Ionized Calcium Phosphorus Magnesium AST 215 H Alkaline Phosphatase Total Protein 4.7 L Albumin 1.5 L Triglycerides Arterial Blood Glucose Arterial Blood Ionized Calcium Urine WBC (Auto) Urine Creatinine Crossmatch 12/26/20 12/26/2012/27/21 23:13 Unknown 00:25 WBC RBC Hgb 11.1 L Hct MCV MCHC RDW Plt Count Lymph % (Auto) Eos % (Auto) Lymph # (Auto) Eos # (Auto) Seg Neutrophils % Seg Neuts % (Manual) Lymphocytes % (Manual) Seg Neutrophils # Seg Neutrophils # Man Lymphocytes # (Manual) Monocytes # (Manual) PT INR APTT Fibrinogen ABG pH POC ABG pCO2 POC ABG pO2 ABG pO2 ABG Base Excess ABG Hemoglobin ABG Oxyhemoglobin ABG Sodium ABG Potassium ABG Chloride ABG Glucose Carboxyhemoglobin Sodium Potassium Chloride Carbon Dioxide BUN Creatinine Glucose POC Glucose 163 H Lactic Acid Calcium Ionized Calcium Phosphorus 5.60 H Magnesium AST Alkaline Phosphatase Total Protein Albumin Triglycerides Arterial Blood Glucose Arterial Blood Ionized Calcium Urine WBC (Auto) Urine Creatinine Crossmatch 12/27/20 12/27/20 12/27/20 02:57 04:15 04:15 WBC 28.5 H RBC Hgb 11.2 L Hct MCV MCHC 31 L RDW 16.5 H Plt Count 130 L Lymph % (Auto) Eos % (Auto) Lymph # (Auto) Eos # (Auto) Seg Neutrophils % Seg Neuts % (Manual) Lymphocytes % (Manual) Seg Neutrophils # Seg Neutrophils # Man Lymphocytes # (Manual) Monocytes # (Manual) PT INR APTT Fibrinogen ABG pH 7.238 L POC ABG pCO2 POC ABG pO2 139.1 H ABG pO2 ABG Base Excess ABG Hemoglobin 11.2 L ABG Oxyhemoglobin ABG Sodium 133.8 L ABG Potassium 5.2 H ABG Chloride ABG Glucose 182 H Carboxyhemoglobin Sodium 136 L Potassium 6.0 H Chloride Carbon Dioxide 18 L BUN 68 H Creatinine 4.1 H Glucose 166 H POC Glucose Lactic Acid Calcium 6.2 L Ionized Calcium Phosphorus 7.30 H D Magnesium AST Alkaline Phosphatase Total Protein Albumin Triglycerides 164 H Arterial Blood Glucose 182 H Arterial Blood Ionized Calcium 3.4 L Urine WBC (Auto) Urine Creatinine Crossmatch 12/27/20 12/27/20 12/27/20 04:50 10:51 11:17 WBC RBC Hgb Hct MCV MCHC RDW Plt Count Lymph % (Auto) Eos % (Auto) Lymph # (Auto) Eos # (Auto) Seg Neutrophils % Seg Neuts % (Manual) Lymphocytes % (Manual) Seg Neutrophils # Seg Neutrophils # Man Lymphocytes # (Manual) Monocytes # (Manual) PT INR APTT Fibrinogen ABG pH POC ABG pCO2 POC ABG pO2 ABG pO2 ABG Base Excess ABG Hemoglobin ABG Oxyhemoglobin ABG Sodium ABG Potassium ABG Chloride ABG Glucose Carboxyhemoglobin Sodium Potassium Chloride Carbon Dioxide BUN Creatinine Glucose POC Glucose 140 H 113 H 154 H Lactic Acid Calcium Ionized Calcium Phosphorus Magnesium AST Alkaline Phosphatase Total Protein Albumin Triglycerides Arterial Blood Glucose Arterial Blood Ionized Calcium Urine WBC (Auto) Urine Creatinine Crossmatch 12/27/20 12/27/20 12/27/20 12:40 14:40 23:17 WBC RBC Hgb Hct MCV MCHC RDW Plt Count Lymph % (Auto) Eos % (Auto) Lymph # (Auto) Eos # (Auto) Seg Neutrophils % Seg Neuts % (Manual) Lymphocytes % (Manual) Seg Neutrophils # Seg Neutrophils # Man Lymphocytes # (Manual) Monocytes # (Manual) PT INR APTT Fibrinogen ABG pH POC ABG pCO2 POC ABG pO2 ABG pO2 ABG Base Excess ABG Hemoglobin ABG Oxyhemoglobin ABG Sodium ABG Potassium ABG Chloride ABG Glucose Carboxyhemoglobin Sodium 135 L Potassium Chloride Carbon Dioxide 21 L BUN 62 H Creatinine 3.8 H Glucose 132 H POC Glucose 130 H Lactic Acid Calcium 5.6 L* Ionized Calcium 3.3 L Phosphorus Magnesium AST Alkaline Phosphatase Total Protein Albumin Triglycerides Arterial Blood Glucose Arterial Blood Ionized Calcium Urine WBC (Auto) Urine Creatinine Crossmatch 12/28/20 12/28/20 12/28/20 05:36 07:08 07:28 WBC 27.2 H RBC 3.50 L Hgb 9.6 L Hct 30.8 L MCV MCHC 31 L RDW 16.1 H Plt Count 111 L Lymph % (Auto) Eos % (Auto) Lymph # (Auto) Eos # (Auto) Seg Neutrophils % Seg Neuts % (Manual) 95.0 H Lymphocytes % (Manual) Seg Neutrophils # Seg Neutrophils # Man 25.8 H Lymphocytes # (Manual) 0.0 L Monocytes # (Manual) 1.1 H PT INR APTT Fibrinogen ABG pH 7.200 L POC ABG pCO2 POC ABG pO2 67.2 L ABG pO2 ABG Base Excess ABG Hemoglobin 10.3 L ABG Oxyhemoglobin 89.6 L ABG Sodium 127.8 L ABG Potassium 5.1 H ABG Chloride ABG Glucose 132 H Carboxyhemoglobin 0.4 L Sodium Potassium Chloride Carbon Dioxide BUN Creatinine Glucose POC Glucose 128 H Lactic Acid Calcium Ionized Calcium Phosphorus Magnesium AST Alkaline Phosphatase Total Protein Albumin Triglycerides Arterial Blood Glucose 132 H Arterial Blood Ionized Calcium 3.5 L Urine WBC (Auto) Urine Creatinine Crossmatch 12/28/20 12/28/20 12/28/20 07:28 11:37 13:25 WBC RBC Hgb Hct MCV MCHC RDW Plt Count Lymph % (Auto) Eos % (Auto) Lymph # (Auto) Eos # (Auto) Seg Neutrophils % Seg Neuts % (Manual) Lymphocytes % (Manual) Seg Neutrophils # Seg Neutrophils # Man Lymphocytes # (Manual) Monocytes # (Manual) PT INR APTT Fibrinogen ABG pH POC ABG pCO2 POC ABG pO2 ABG pO2 ABG Base Excess ABG Hemoglobin ABG Oxyhemoglobin ABG Sodium ABG Potassium ABG Chloride ABG Glucose Carboxyhemoglobin Sodium 131 L 133 L Potassium 5.9 H 5.1 H Chloride 97.1 L Carbon Dioxide 15 L 21 L BUN 70 H 77 H Creatinine 4.0 H 4.4 H Glucose 118 H 140 H POC Glucose 135 H Lactic Acid Calcium 6.3 L 6.3 L Ionized Calcium Phosphorus 7.10 H Magnesium AST 144 H Alkaline Phosphatase Total Protein 4.8 L Albumin 1.3 L Triglycerides Arterial Blood Glucose Arterial Blood Ionized Calcium Urine WBC (Auto) Urine Creatinine Crossmatch 12/28/20 12/28/20 12/29/20 16:38 23:28 03:08 WBC RBC Hgb Hct MCV MCHC RDW Plt Count Lymph % (Auto) Eos % (Auto) Lymph # (Auto) Eos # (Auto) Seg Neutrophils % Seg Neuts % (Manual) Lymphocytes % (Manual) Seg Neutrophils # Seg Neutrophils # Man Lymphocytes # (Manual) Monocytes # (Manual) PT INR APTT Fibrinogen ABG pH 7.301 L POC ABG pCO2 POC ABG pO2 151.1 H ABG pO2 ABG Base Excess ABG Hemoglobin 8.7 L ABG Oxyhemoglobin 98.2 H ABG Sodium 123.4 L ABG Potassium ABG Chloride 97.0 L ABG Glucose 144 H Carboxyhemoglobin Sodium Potassium Chloride Carbon Dioxide BUN Creatinine Glucose POC Glucose 140 H 134 H Lactic Acid Calcium Ionized Calcium Phosphorus Magnesium AST Alkaline Phosphatase Total Protein Albumin Triglycerides Arterial Blood Glucose 144 H Arterial Blood Ionized Calcium 3.4 L Urine WBC (Auto) Urine Creatinine Crossmatch 12/29/20 12/29/20 12/29/20 05:20 05:20 06:01 WBC 21.0 H RBC 2.89 L Hgb 8.1 L Hct 25.5 L MCV MCHC RDW 16.1 H Plt Count 124 L Lymph % (Auto) Eos % (Auto) Lymph # (Auto) Eos # (Auto) Seg Neutrophils % Seg Neuts % (Manual) Lymphocytes % (Manual) Seg Neutrophils # Seg Neutrophils # Man Lymphocytes # (Manual) Monocytes # (Manual) PT INR APTT Fibrinogen ABG pH POC ABG pCO2 POC ABG pO2 ABG pO2 ABG Base Excess ABG Hemoglobin ABG Oxyhemoglobin ABG Sodium ABG Potassium ABG Chloride ABG Glucose Carboxyhemoglobin Sodium 131 L Potassium Chloride 93.4 L Carbon Dioxide BUN 79 H Creatinine 4.7 H Glucose 122 H POC Glucose 108 H Lactic Acid Calcium 5.5 L* Ionized Calcium Phosphorus 5.70 H Magnesium 1.60 L AST Alkaline Phosphatase Total Protein Albumin Triglycerides Arterial Blood Glucose Arterial Blood Ionized Calcium Urine WBC (Auto) Urine Creatinine Crossmatch 12/29/20 12/29/20 12/29/20 10:04 11:27 17:31 WBC RBC Hgb Hct MCV MCHC RDW Plt Count Lymph % (Auto) Eos % (Auto) Lymph # (Auto) Eos # (Auto) Seg Neutrophils % Seg Neuts % (Manual) Lymphocytes % (Manual) Seg Neutrophils # Seg Neutrophils # Man Lymphocytes # (Manual) Monocytes # (Manual) PT INR APTT Fibrinogen ABG pH POC ABG pCO2 POC ABG pO2 ABG pO2 ABG Base Excess ABG Hemoglobin ABG Oxyhemoglobin ABG Sodium ABG Potassium ABG Chloride ABG Glucose Carboxyhemoglobin Sodium Potassium Chloride Carbon Dioxide BUN Creatinine Glucose POC Glucose 107 H 112 H 110 H Lactic Acid Calcium Ionized Calcium Phosphorus Magnesium AST Alkaline Phosphatase Total Protein Albumin Triglycerides Arterial Blood Glucose Arterial Blood Ionized Calcium Urine WBC (Auto) Urine Creatinine Crossmatch 12/30/20 12/30/20 12/30/20 03:31 08:06 17:39 WBC RBC Hgb Hct MCV MCHC RDW Plt Count Lymph % (Auto) Eos % (Auto) Lymph # (Auto) Eos # (Auto) Seg Neutrophils % Seg Neuts % (Manual) Lymphocytes % (Manual) Seg Neutrophils # Seg Neutrophils # Man Lymphocytes # (Manual) Monocytes # (Manual) PT INR APTT Fibrinogen ABG pH 7.261 L POC ABG pCO2 POC ABG pO2 123.1 H ABG pO2 ABG Base Excess ABG Hemoglobin 8.7 L ABG Oxyhemoglobin ABG Sodium 123.2 L ABG Potassium ABG Chloride 96.0 L ABG Glucose 112 H Carboxyhemoglobin Sodium 128 L Potassium Chloride 90.7 L Carbon Dioxide 21 L BUN 86 H Creatinine 4.9 H Glucose 107 H POC Glucose 134 H Lactic Acid Calcium 6.2 L Ionized Calcium Phosphorus 5.30 H Magnesium 1.50 L AST Alkaline Phosphatase Total Protein Albumin Triglycerides Arterial Blood Glucose 112 H Arterial Blood Ionized Calcium 3.2 L Urine WBC (Auto) Urine Creatinine Crossmatch 12/30/20 12/31/20 12/31/20 22:45 02:14 04:40 WBC RBC Hgb Hct MCV MCHC RDW Plt Count Lymph % (Auto) Eos % (Auto) Lymph # (Auto) Eos # (Auto) Seg Neutrophils % Seg Neuts % (Manual) Lymphocytes % (Manual) Seg Neutrophils # Seg Neutrophils # Man Lymphocytes # (Manual) Monocytes # (Manual) PT INR APTT Fibrinogen ABG pH 7.267 L POC ABG pCO2 POC ABG pO2 ABG pO2 ABG Base Excess ABG Hemoglobin 8.0 L ABG Oxyhemoglobin 93.7 L ABG Sodium ABG Potassium ABG Chloride 95.0 L ABG Glucose 108 H Carboxyhemoglobin 1.7 H Sodium 126 L Potassium Chloride 90.3 L Carbon Dioxide 20 L BUN 70 H Creatinine 4.3 H Glucose 209 H POC Glucose 109 H Lactic Acid Calcium 6.6 L Ionized Calcium Phosphorus 4.70 H Magnesium 1.60 L AST Alkaline Phosphatase Total Protein Albumin Triglycerides 157 H Arterial Blood Glucose 108 H Arterial Blood Ionized Calcium 3.7 L Urine WBC (Auto) Urine Creatinine Crossmatch 12/31/20 12/31/20 01/01/21 16:23 23:21 04:00 WBC 18.0 H RBC 2.75 L Hgb 7.7 L Hct 23.9 L MCV MCHC RDW 15.6 H Plt Count Lymph % (Auto) Eos % (Auto) Lymph # (Auto) Eos # (Auto) Seg Neutrophils % Seg Neuts % (Manual) 91.0 H Lymphocytes % (Manual) 6.0 L Seg Neutrophils # Seg Neutrophils # Man 16.4 H Lymphocytes # (Manual) 1.1 L Monocytes # (Manual) PT INR APTT Fibrinogen ABG pH 7.264 L POC ABG pCO2 POC ABG pO2 74.8 L ABG pO2 ABG Base Excess ABG Hemoglobin 7.1 L ABG Oxyhemoglobin 92.1 L ABG Sodium 124.9 L ABG Potassium ABG Chloride 95.0 L ABG Glucose 111 H Carboxyhemoglobin 1.7 H Sodium Potassium Chloride Carbon Dioxide BUN Creatinine Glucose POC Glucose 125 H Lactic Acid Calcium Ionized Calcium Phosphorus Magnesium AST Alkaline Phosphatase Total Protein Albumin Triglycerides Arterial Blood Glucose 111 H Arterial Blood Ionized Calcium 4.0 L Urine WBC (Auto) Urine Creatinine Crossmatch 01/01/21 01/01/21 01/01/21 05:50 13:41 15:55 WBC RBC Hgb Hct MCV MCHC RDW Plt Count Lymph % (Auto) Eos % (Auto) Lymph # (Auto) Eos # (Auto) Seg Neutrophils % Seg Neuts % (Manual) Lymphocytes % (Manual) Seg Neutrophils # Seg Neutrophils # Man Lymphocytes # (Manual) Monocytes # (Manual) PT INR APTT Fibrinogen ABG pH 7.148 L 7.207 L POC ABG pCO2 53.1 H POC ABG pO2 57.3 L 138.4 H ABG pO2 ABG Base Excess ABG Hemoglobin 9.0 L 8.3 L ABG Oxyhemoglobin 83.2 L ABG Sodium 126.2 L 124.5 L ABG Potassium ABG Chloride 95.0 L 95.0 L ABG Glucose 96 H 120 H Carboxyhemoglobin Sodium 131 L Potassium Chloride 93.3 L Carbon Dioxide 21 L BUN 67 H Creatinine 4.2 H Glucose POC Glucose Lactic Acid Calcium 7.1 L Ionized Calcium Phosphorus Magnesium AST 60 H Alkaline Phosphatase Total Protein 4.8 L Albumin 1.4 L Triglycerides Arterial Blood Glucose 96 H 120 H Arterial Blood Ionized Calcium 4.1 L 3.9 L Urine WBC (Auto) Urine Creatinine Crossmatch 01/01/21 01/01/21 01/02/21 17:09 23:24 03:47 WBC RBC Hgb Hct MCV MCHC RDW Plt Count Lymph % (Auto) Eos % (Auto) Lymph # (Auto) Eos # (Auto) Seg Neutrophils % Seg Neuts % (Manual) Lymphocytes % (Manual) Seg Neutrophils # Seg Neutrophils # Man Lymphocytes # (Manual) Monocytes # (Manual) PT INR APTT Fibrinogen ABG pH 7.276 L POC ABG pCO2 POC ABG pO2 173.6 H ABG pO2 ABG Base Excess ABG Hemoglobin 7 L ABG Oxyhemoglobin ABG Sodium 122.4 L ABG Potassium ABG Chloride 94.0 L ABG Glucose 118 H Carboxyhemoglobin Sodium Potassium Chloride Carbon Dioxide BUN Creatinine Glucose POC Glucose 124 H 119 H Lactic Acid Calcium Ionized Calcium Phosphorus Magnesium AST Alkaline Phosphatase Total Protein Albumin Triglycerides Arterial Blood Glucose 118 H Arterial Blood Ionized Calcium 4.0 L Urine WBC (Auto) Urine Creatinine Crossmatch 01/02/21 01/02/21 01/02/21 05:33 08:00 08:00 WBC 19.7 H RBC 2.53 L Hgb 7.1 L Hct 22.0 L MCV MCHC RDW 16.4 H Plt Count Lymph % (Auto) Eos % (Auto) Lymph # (Auto) Eos # (Auto) Seg Neutrophils % Seg Neuts % (Manual) Lymphocytes % (Manual) Seg Neutrophils # Seg Neutrophils # Man Lymphocytes # (Manual) Monocytes # (Manual) PT INR APTT Fibrinogen ABG pH POC ABG pCO2 POC ABG pO2 ABG pO2 ABG Base Excess ABG Hemoglobin ABG Oxyhemoglobin ABG Sodium ABG Potassium ABG Chloride ABG Glucose Carboxyhemoglobin Sodium 127 L Potassium Chloride 89.3 L Carbon Dioxide 19 L BUN 82 H Creatinine 5.0 H Glucose 103 H POC Glucose 107 H Lactic Acid Calcium 7.8 L Ionized Calcium Phosphorus 6.40 H Magnesium AST 47 H Alkaline Phosphatase Total Protein 5.0 L Albumin 1.6 L Triglycerides Arterial Blood Glucose Arterial Blood Ionized Calcium Urine WBC (Auto) Urine Creatinine Crossmatch 01/02/21 01/03/21 01/03/21 17:25 07:56 09:47 WBC 17.7 H RBC 2.19 L Hgb 6.2 L Hct 18.5 L* MCV MCHC RDW 16.1 H Plt Count Lymph % (Auto) Eos % (Auto) Lymph # (Auto) Eos # (Auto) Seg Neutrophils % Seg Neuts % (Manual) Lymphocytes % (Manual) Seg Neutrophils # Seg Neutrophils # Man Lymphocytes # (Manual) Monocytes # (Manual) PT INR APTT Fibrinogen ABG pH POC ABG pCO2 POC ABG pO2 ABG pO2 ABG Base Excess ABG Hemoglobin ABG Oxyhemoglobin ABG Sodium ABG Potassium ABG Chloride ABG Glucose Carboxyhemoglobin Sodium 130 L Potassium 3.5 L Chloride 90.3 L Carbon Dioxide BUN 68 H Creatinine 3.9 H Glucose 103 H POC Glucose 116 H Lactic Acid Calcium 8.0 L Ionized Calcium Phosphorus 4.80 H D Magnesium AST Alkaline Phosphatase Total Protein Albumin Triglycerides Arterial Blood Glucose Arterial Blood Ionized Calcium Urine WBC (Auto) Urine Creatinine Crossmatch 01/03/21 01/03/21 01/04/21 11:00 19:00 03:12 WBC 17.0 H RBC 2.51 L Hgb 7.1 L Hct 21.5 L MCV MCHC RDW 16.6 H Plt Count Lymph % (Auto) Eos % (Auto) Lymph # (Auto) Eos # (Auto) Seg Neutrophils % Seg Neuts % (Manual) Lymphocytes % (Manual) Seg Neutrophils # Seg Neutrophils # Man Lymphocytes # (Manual) Monocytes # (Manual) PT INR APTT Fibrinogen ABG pH 7.463 H POC ABG pCO2 POC ABG pO2 72.2 L ABG pO2 ABG Base Excess ABG Hemoglobin 6.2 L ABG Oxyhemoglobin 91.8 L ABG Sodium 128.4 L ABG Potassium 3.3 L ABG Chloride 96.0 L ABG Glucose 112 H Carboxyhemoglobin Sodium Potassium Chloride Carbon Dioxide BUN Creatinine Glucose POC Glucose Lactic Acid Calcium Ionized Calcium Phosphorus Magnesium AST Alkaline Phosphatase Total Protein Albumin Triglycerides Arterial Blood Glucose 112 H Arterial Blood Ionized Calcium 4.3 L Urine WBC (Auto) Urine Creatinine Crossmatch See Detail 01/04/21 01/04/21 01/04/21 05:16 06:20 06:20 WBC 18.5 H RBC 2.53 L Hgb 7.4 L Hct 21.9 L MCV MCHC RDW 15.8 H Plt Count Lymph % (Auto) Eos % (Auto) Lymph # (Auto) Eos # (Auto) Seg Neutrophils % Seg Neuts % (Manual) Lymphocytes % (Manual) Seg Neutrophils # Seg Neutrophils # Man Lymphocytes # (Manual) Monocytes # (Manual) PT INR APTT Fibrinogen ABG pH POC ABG pCO2 POC ABG pO2 ABG pO2 ABG Base Excess ABG Hemoglobin ABG Oxyhemoglobin ABG Sodium ABG Potassium ABG Chloride ABG Glucose Carboxyhemoglobin Sodium 135 L Potassium Chloride 95.2 L Carbon Dioxide BUN 56 H Creatinine 3.2 H Glucose 109 H POC Glucose 123 H Lactic Acid Calcium 7.6 L Ionized Calcium Phosphorus Magnesium AST Alkaline Phosphatase Total Protein Albumin Triglycerides Arterial Blood Glucose Arterial Blood Ionized Calcium Urine WBC (Auto) Urine Creatinine Crossmatch 01/05/21 01/05/21 01/05/21 03:50 07:22 07:22 WBC 23.8 H RBC 2.93 L Hgb 8.2 L Hct 25.1 L MCV MCHC RDW 16.5 H Plt Count Lymph % (Auto) Eos % (Auto) Lymph # (Auto) Eos # (Auto) Seg Neutrophils % Seg Neuts % (Manual) Lymphocytes % (Manual) Seg Neutrophils # Seg Neutrophils # Man Lymphocytes # (Manual) Monocytes # (Manual) PT INR APTT Fibrinogen ABG pH POC ABG pCO2 POC ABG pO2 ABG pO2 136.8 H ABG Base Excess -2.3 L ABG Hemoglobin 6.9 L ABG Oxyhemoglobin ABG Sodium ABG Potassium ABG Chloride ABG Glucose Carboxyhemoglobin Sodium 134 L Potassium Chloride 93.3 L Carbon Dioxide BUN 77 H Creatinine 4.2 H Glucose 105 H POC Glucose Lactic Acid Calcium Ionized Calcium Phosphorus 4.90 H D Magnesium AST Alkaline Phosphatase Total Protein Albumin Triglycerides Arterial Blood Glucose Arterial Blood Ionized Calcium Urine WBC (Auto) Urine Creatinine Crossmatch 01/05/21 01/05/21 01/05/21 11:02 14:06 15:37 WBC RBC Hgb Hct MCV MCHC RDW Plt Count Lymph % (Auto) Eos % (Auto) Lymph # (Auto) Eos # (Auto) Seg Neutrophils % Seg Neuts % (Manual) Lymphocytes % (Manual) Seg Neutrophils # Seg Neutrophils # Man Lymphocytes # (Manual) Monocytes # (Manual) PT INR APTT Fibrinogen ABG pH POC ABG pCO2 POC ABG pO2 332.3 H ABG pO2 ABG Base Excess ABG Hemoglobin 7.7 L ABG Oxyhemoglobin 98.7 H ABG Sodium 131.0 L ABG Potassium 3.3 L ABG Chloride 97.0 L ABG Glucose 118 H Carboxyhemoglobin Sodium Potassium Chloride Carbon Dioxide BUN Creatinine Glucose POC Glucose 118 H 111 H Lactic Acid Calcium Ionized Calcium Phosphorus Magnesium AST Alkaline Phosphatase Total Protein Albumin Triglycerides Arterial Blood Glucose 118 H Arterial Blood Ionized Calcium 4.4 L Urine WBC (Auto) Urine Creatinine Crossmatch 01/05/21 01/06/21 01/06/21 23:18 04:00 04:20 WBC RBC Hgb Hct MCV MCHC RDW Plt Count Lymph % (Auto) Eos % (Auto) Lymph # (Auto) Eos # (Auto) Seg Neutrophils % Seg Neuts % (Manual) Lymphocytes % (Manual) Seg Neutrophils # Seg Neutrophils # Man Lymphocytes # (Manual) Monocytes # (Manual) PT INR APTT Fibrinogen ABG pH POC ABG pCO2 POC ABG pO2 230.5 H ABG pO2 ABG Base Excess ABG Hemoglobin 7.9 L ABG Oxyhemoglobin 98.5 H ABG Sodium 129.4 L ABG Potassium ABG Chloride 97.0 L ABG Glucose 117 H Carboxyhemoglobin Sodium 133 L Potassium Chloride 94.4 L Carbon Dioxide BUN 62 H Creatinine 3.6 H Glucose 110 H POC Glucose 110 H Lactic Acid Calcium 7.8 L Ionized Calcium Phosphorus Magnesium AST Alkaline Phosphatase Total Protein Albumin Triglycerides Arterial Blood Glucose 117 H Arterial Blood Ionized Calcium 4.5 L Urine WBC (Auto) Urine Creatinine Crossmatch 01/06/21 01/06/21 01/06/21 05:28 09:00 11:00 WBC 15.2 H RBC 2.18 L Hgb 6.5 L Hct 21.8 L MCV 100 H MCHC 30 L RDW 18.5 H Plt Count Lymph % (Auto) Eos % (Auto) Lymph # (Auto) Eos # (Auto) Seg Neutrophils % Seg Neuts % (Manual) Lymphocytes % (Manual) Seg Neutrophils # Seg Neutrophils # Man Lymphocytes # (Manual) Monocytes # (Manual) PT INR APTT Fibrinogen ABG pH POC ABG pCO2 POC ABG pO2 ABG pO2 ABG Base Excess ABG Hemoglobin ABG Oxyhemoglobin ABG Sodium ABG Potassium ABG Chloride ABG Glucose Carboxyhemoglobin Sodium Potassium Chloride Carbon Dioxide BUN Creatinine Glucose POC Glucose 109 H Lactic Acid Calcium Ionized Calcium Phosphorus Magnesium AST Alkaline Phosphatase Total Protein Albumin Triglycerides Arterial Blood Glucose Arterial Blood Ionized Calcium Urine WBC (Auto) Urine Creatinine Crossmatch See Detail 01/06/21 01/06/21 01/07/21 11:32 23:44 03:10 WBC 15.3 H RBC 2.30 L Hgb 6.7 L Hct 20.1 L MCV MCHC RDW 16.6 H Plt Count Lymph % (Auto) Eos % (Auto) Lymph # (Auto) Eos # (Auto) Seg Neutrophils % Seg Neuts % (Manual) Lymphocytes % (Manual) Seg Neutrophils # Seg Neutrophils # Man Lymphocytes # (Manual) Monocytes # (Manual) PT INR APTT Fibrinogen ABG pH POC ABG pCO2 POC ABG pO2 ABG pO2 ABG Base Excess ABG Hemoglobin ABG Oxyhemoglobin ABG Sodium ABG Potassium ABG Chloride ABG Glucose Carboxyhemoglobin Sodium Potassium Chloride Carbon Dioxide BUN Creatinine Glucose POC Glucose 113 H 118 H Lactic Acid Calcium Ionized Calcium Phosphorus Magnesium AST Alkaline Phosphatase Total Protein Albumin Triglycerides Arterial Blood Glucose Arterial Blood Ionized Calcium Urine WBC (Auto) Urine Creatinine Crossmatch 01/07/21 01/07/21 01/07/21 03:10 04:17 05:06 WBC RBC Hgb Hct MCV MCHC RDW Plt Count Lymph % (Auto) Eos % (Auto) Lymph # (Auto) Eos # (Auto) Seg Neutrophils % Seg Neuts % (Manual) Lymphocytes % (Manual) Seg Neutrophils # Seg Neutrophils # Man Lymphocytes # (Manual) Monocytes # (Manual) PT INR APTT Fibrinogen ABG pH 7.272 L POC ABG pCO2 50.1 H POC ABG pO2 ABG pO2 ABG Base Excess ABG Hemoglobin 8.4 L ABG Oxyhemoglobin ABG Sodium 128.6 L ABG Potassium ABG Chloride 95.0 L ABG Glucose 109 H Carboxyhemoglobin Sodium 133 L Potassium Chloride 93.6 L Carbon Dioxide BUN 85 H Creatinine 3.9 H Glucose 112 H POC Glucose 106 H Lactic Acid Calcium Ionized Calcium Phosphorus 4.70 H D Magnesium AST Alkaline Phosphatase Total Protein Albumin Triglycerides Arterial Blood Glucose 109 H Arterial Blood Ionized Calcium Urine WBC (Auto) Urine Creatinine Crossmatch 01/07/21 01/07/21 01/07/21 14:05 16:00 23:25 WBC RBC Hgb 8.1 L Hct 24.2 L MCV MCHC RDW Plt Count Lymph % (Auto) Eos % (Auto) Lymph # (Auto) Eos # (Auto) Seg Neutrophils % Seg Neuts % (Manual) Lymphocytes % (Manual) Seg Neutrophils # Seg Neutrophils # Man Lymphocytes # (Manual) Monocytes # (Manual) PT INR APTT Fibrinogen ABG pH POC ABG pCO2 POC ABG pO2 ABG pO2 ABG Base Excess ABG Hemoglobin 7.2 L ABG Oxyhemoglobin ABG Sodium 127.3 L ABG Potassium ABG Chloride 96.0 L ABG Glucose 98 H Carboxyhemoglobin Sodium Potassium Chloride Carbon Dioxide BUN Creatinine Glucose POC Glucose 106 H Lactic Acid Calcium Ionized Calcium Phosphorus Magnesium AST Alkaline Phosphatase Total Protein Albumin Triglycerides Arterial Blood Glucose 98 H Arterial Blood Ionized Calcium Urine WBC (Auto) Urine Creatinine Crossmatch 01/08/21 01/08/21 01/08/21 03:22 05:30 23:22 WBC RBC Hgb Hct MCV MCHC RDW Plt Count Lymph % (Auto) Eos % (Auto) Lymph # (Auto) Eos # (Auto) Seg Neutrophils % Seg Neuts % (Manual) Lymphocytes % (Manual) Seg Neutrophils # Seg Neutrophils # Man Lymphocytes # (Manual) Monocytes # (Manual) PT INR APTT Fibrinogen ABG pH POC ABG pCO2 POC ABG pO2 71.3 L ABG pO2 ABG Base Excess ABG Hemoglobin 8.7 L ABG Oxyhemoglobin 92.2 L ABG Sodium 125.9 L ABG Potassium ABG Chloride 96.0 L ABG Glucose 124 H Carboxyhemoglobin Sodium Potassium Chloride Carbon Dioxide BUN Creatinine Glucose POC Glucose 118 H 110 H Lactic Acid Calcium Ionized Calcium Phosphorus Magnesium AST Alkaline Phosphatase Total Protein Albumin Triglycerides Arterial Blood Glucose 124 H Arterial Blood Ionized Calcium Urine WBC (Auto) Urine Creatinine Crossmatch 01/08/21 01/08/21 01/09/21 Unknown Unknown 08:45 WBC 15.2 H RBC 2.62 L Hgb 7.6 L Hct 22.7 L MCV MCHC RDW 16.7 H Plt Count Lymph % (Auto) Eos % (Auto) Lymph # (Auto) Eos # (Auto) Seg Neutrophils % Seg Neuts % (Manual) 95.0 H Lymphocytes % (Manual) 3.0 L Seg Neutrophils # Seg Neutrophils # Man 14.4 H Lymphocytes # (Manual) 0.5 L Monocytes # (Manual) PT INR APTT Fibrinogen ABG pH POC ABG pCO2 POC ABG pO2 ABG pO2 ABG Base Excess ABG Hemoglobin ABG Oxyhemoglobin ABG Sodium ABG Potassium ABG Chloride ABG Glucose Carboxyhemoglobin Sodium 129 L 129 L Potassium Chloride 91.2 L 92.7 L Carbon Dioxide 21 L 19 L BUN 91 H 105 H Creatinine 4.0 H 4.4 H Glucose 115 H 107 H POC Glucose Lactic Acid Calcium Ionized Calcium Phosphorus 5.00 H Magnesium AST Alkaline Phosphatase Total Protein 5.3 L Albumin 1.6 L Triglycerides 166 H Arterial Blood Glucose Arterial Blood Ionized Calcium Urine WBC (Auto) Urine Creatinine Crossmatch 01/09/21 01/09/21 01/10/21 10:10 23:51 04:00 WBC 14.1 H RBC 2.50 L Hgb 7.2 L Hct 21.6 L MCV MCHC RDW 16.5 H Plt Count Lymph % (Auto) Eos % (Auto) Lymph # (Auto) Eos # (Auto) Seg Neutrophils % Seg Neuts % (Manual) 92.0 H Lymphocytes % (Manual) 2.0 L Seg Neutrophils # Seg Neutrophils # Man 13.0 H Lymphocytes # (Manual) 0.3 L Monocytes # (Manual) PT INR APTT Fibrinogen ABG pH 7.273 L POC ABG pCO2 POC ABG pO2 ABG pO2 ABG Base Excess ABG Hemoglobin 8.7 L ABG Oxyhemoglobin ABG Sodium 126.2 L ABG Potassium 4.8 H ABG Chloride 96.0 L ABG Glucose 160 H Carboxyhemoglobin Sodium Potassium Chloride Carbon Dioxide BUN Creatinine Glucose POC Glucose 154 H Lactic Acid Calcium Ionized Calcium Phosphorus Magnesium AST Alkaline Phosphatase Total Protein Albumin Triglycerides Arterial Blood Glucose 160 H Arterial Blood Ionized Calcium Urine WBC (Auto) Urine Creatinine Crossmatch 01/10/21 01/10/21 01/10/21 04:01 04:01 04:01 WBC 12.6 H RBC 2.89 L Hgb 8.1 L Hct 24.9 L MCV MCHC RDW 16.6 H Plt Count Lymph % (Auto) Eos % (Auto) Lymph # (Auto) Eos # (Auto) Seg Neutrophils % Seg Neuts % (Manual) 95.0 H Lymphocytes % (Manual) 3.0 L Seg Neutrophils # Seg Neutrophils # Man 12.0 H Lymphocytes # (Manual) 0.4 L Monocytes # (Manual) PT 15.4 H INR 1.17 H APTT 40.2 H Fibrinogen 817 H ABG pH POC ABG pCO2 POC ABG pO2 ABG pO2 ABG Base Excess ABG Hemoglobin ABG Oxyhemoglobin ABG Sodium ABG Potassium ABG Chloride ABG Glucose Carboxyhemoglobin Sodium 128 L Potassium Chloride 90.4 L Carbon Dioxide 19 L BUN 113 H Creatinine 4.5 H Glucose 162 H POC Glucose Lactic Acid Calcium Ionized Calcium Phosphorus 5.70 H Magnesium AST Alkaline Phosphatase Total Protein 6.2 L Albumin 2.1 L Triglycerides Arterial Blood Glucose Arterial Blood Ionized Calcium Urine WBC (Auto) Urine Creatinine Crossmatch 01/10/21 01/10/21 01/11/21 05:31 11:45 04:00 WBC RBC Hgb Hct MCV MCHC RDW Plt Count Lymph % (Auto) Eos % (Auto) Lymph # (Auto) Eos # (Auto) Seg Neutrophils % Seg Neuts % (Manual) Lymphocytes % (Manual) Seg Neutrophils # Seg Neutrophils # Man Lymphocytes # (Manual) Monocytes # (Manual) PT INR APTT Fibrinogen ABG pH 7.311 L POC ABG pCO2 49.2 H POC ABG pO2 ABG pO2 ABG Base Excess ABG Hemoglobin 9.4 L ABG Oxyhemoglobin ABG Sodium 130.3 L ABG Potassium ABG Chloride 96.0 L ABG Glucose 104 H Carboxyhemoglobin Sodium Potassium Chloride Carbon Dioxide BUN Creatinine Glucose POC Glucose 150 H 145 H Lactic Acid Calcium Ionized Calcium Phosphorus Magnesium AST Alkaline Phosphatase Total Protein Albumin Triglycerides Arterial Blood Glucose 104 H Arterial Blood Ionized Calcium Urine WBC (Auto) Urine Creatinine Crossmatch 01/11/21 01/11/21 01/12/21 04:45 17:29 05:51 WBC RBC Hgb Hct MCV MCHC RDW Plt Count Lymph % (Auto) Eos % (Auto) Lymph # (Auto) Eos # (Auto) Seg Neutrophils % Seg Neuts % (Manual) Lymphocytes % (Manual) Seg Neutrophils # Seg Neutrophils # Man Lymphocytes # (Manual) Monocytes # (Manual) PT INR APTT Fibrinogen ABG pH POC ABG pCO2 POC ABG pO2 ABG pO2 ABG Base Excess ABG Hemoglobin ABG Oxyhemoglobin ABG Sodium ABG Potassium ABG Chloride ABG Glucose Carboxyhemoglobin Sodium 134 L Potassium 3.5 L D Chloride 95.5 L Carbon Dioxide BUN 88 H Creatinine 3.5 H Glucose 103 H POC Glucose 109 H 114 H Lactic Acid Calcium Ionized Calcium Phosphorus Magnesium AST Alkaline Phosphatase Total Protein Albumin Triglycerides Arterial Blood Glucose Arterial Blood Ionized Calcium Urine WBC (Auto) Urine Creatinine Crossmatch 01/12/21 01/12/21 01/12/21 10:00 10:00 11:56 WBC RBC Hgb Hct MCV MCHC RDW Plt Count Lymph % (Auto) Eos % (Auto) Lymph # (Auto) Eos # (Auto) Seg Neutrophils % Seg Neuts % (Manual) Lymphocytes % (Manual) Seg Neutrophils # Seg Neutrophils # Man Lymphocytes # (Manual) Monocytes # (Manual) PT INR APTT Fibrinogen ABG pH POC ABG pCO2 POC ABG pO2 ABG pO2 ABG Base Excess ABG Hemoglobin ABG Oxyhemoglobin ABG Sodium ABG Potassium ABG Chloride ABG Glucose Carboxyhemoglobin Sodium 136 L Potassium Chloride 95.2 L Carbon Dioxide BUN 102 H Creatinine 3.6 H Glucose 106 H POC Glucose 113 H Lactic Acid Calcium Ionized Calcium Phosphorus 4.90 H Magnesium AST Alkaline Phosphatase Total Protein Albumin Triglycerides 153 H Arterial Blood Glucose Arterial Blood Ionized Calcium Urine WBC (Auto) Urine Creatinine Crossmatch 01/12/21 01/12/21 01/13/21 17:43 23:31 03:14 WBC RBC Hgb Hct MCV MCHC RDW Plt Count Lymph % (Auto) Eos % (Auto) Lymph # (Auto) Eos # (Auto) Seg Neutrophils % Seg Neuts % (Manual) Lymphocytes % (Manual) Seg Neutrophils # Seg Neutrophils # Man Lymphocytes # (Manual) Monocytes # (Manual) PT INR APTT Fibrinogen ABG pH 7.484 H POC ABG pCO2 POC ABG pO2 ABG pO2 ABG Base Excess ABG Hemoglobin 8.4 L ABG Oxyhemoglobin ABG Sodium 134.4 L ABG Potassium 3.1 L ABG Chloride ABG Glucose 117 H Carboxyhemoglobin Sodium Potassium Chloride Carbon Dioxide BUN Creatinine Glucose POC Glucose 113 H 108 H Lactic Acid Calcium Ionized Calcium Phosphorus Magnesium AST Alkaline Phosphatase Total Protein Albumin Triglycerides Arterial Blood Glucose 117 H Arterial Blood Ionized Calcium 4.5 L Urine WBC (Auto) Urine Creatinine Crossmatch 01/13/21 01/13/21 01/13/21 04:56 05:00 05:00 WBC RBC 2.87 L Hgb 8.0 L Hct 24.4 L MCV MCHC RDW 17.2 H Plt Count Lymph % (Auto) Eos % (Auto) Lymph # (Auto) Eos # (Auto) Seg Neutrophils % Seg Neuts % (Manual) Lymphocytes % (Manual) Seg Neutrophils # Seg Neutrophils # Man Lymphocytes # (Manual) Monocytes # (Manual) PT INR APTT Fibrinogen ABG pH POC ABG pCO2 POC ABG pO2 ABG pO2 ABG Base Excess ABG Hemoglobin ABG Oxyhemoglobin ABG Sodium ABG Potassium ABG Chloride ABG Glucose Carboxyhemoglobin Sodium Potassium 3.0 L Chloride 97.6 L Carbon Dioxide BUN 69 H Creatinine 2.9 H Glucose 114 H POC Glucose 110 H Lactic Acid Calcium 8.0 L Ionized Calcium Phosphorus Magnesium AST Alkaline Phosphatase Total Protein Albumin Triglycerides Arterial Blood Glucose Arterial Blood Ionized Calcium Urine WBC (Auto) Urine Creatinine Crossmatch 01/13/21 01/14/21 01/14/21 12:09 05:00 05:00 WBC 12.4 H RBC 2.72 L Hgb 7.7 L Hct 23.3 L MCV MCHC RDW 17.3 H Plt Count Lymph % (Auto) 6.5 L Eos % (Auto) 7.7 H Lymph # (Auto) 0.8 L Eos # (Auto) 1.0 H Seg Neutrophils % 82.7 H Seg Neuts % (Manual) Lymphocytes % (Manual) Seg Neutrophils # 10.2 H Seg Neutrophils # Man Lymphocytes # (Manual) Monocytes # (Manual) PT INR APTT Fibrinogen ABG pH POC ABG pCO2 POC ABG pO2 ABG pO2 ABG Base Excess ABG Hemoglobin ABG Oxyhemoglobin ABG Sodium ABG Potassium ABG Chloride ABG Glucose Carboxyhemoglobin Sodium Potassium 3.2 L Chloride Carbon Dioxide BUN 79 H Creatinine 3.1 H Glucose POC Glucose 111 H Lactic Acid Calcium Ionized Calcium Phosphorus Magnesium AST Alkaline Phosphatase Total Protein Albumin Triglycerides Arterial Blood Glucose Arterial Blood Ionized Calcium Urine WBC (Auto) Urine Creatinine Crossmatch 01/16/21 01/16/21 01/16/21 04:30 04:30 16:00 WBC RBC 2.62 L Hgb 7.6 L Hct 22.6 L MCV MCHC RDW 17.3 H Plt Count Lymph % (Auto) Eos % (Auto) Lymph # (Auto) Eos # (Auto) Seg Neutrophils % Seg Neuts % (Manual) Lymphocytes % (Manual) Seg Neutrophils # Seg Neutrophils # Man Lymphocytes # (Manual) Monocytes # (Manual) PT INR APTT Fibrinogen ABG pH POC ABG pCO2 POC ABG pO2 ABG pO2 ABG Base Excess ABG Hemoglobin ABG Oxyhemoglobin ABG Sodium ABG Potassium ABG Chloride ABG Glucose Carboxyhemoglobin Sodium 146 H Potassium 2.9 L* 3.0 L Chloride Carbon Dioxide BUN 58 H Creatinine 2.4 H Glucose 101 H POC Glucose Lactic Acid Calcium Ionized Calcium Phosphorus Magnesium AST Alkaline Phosphatase Total Protein Albumin 2.1 L Triglycerides Arterial Blood Glucose Arterial Blood Ionized Calcium Urine WBC (Auto) Urine Creatinine Crossmatch 01/16/21 01/17/21 01/17/21 Unknown 04:30 04:30 WBC RBC 2.80 L Hgb 7.9 L Hct 24.1 L MCV MCHC RDW 17.1 H Plt Count Lymph % (Auto) Eos % (Auto) Lymph # (Auto) Eos # (Auto) Seg Neutrophils % Seg Neuts % (Manual) Lymphocytes % (Manual) Seg Neutrophils # Seg Neutrophils # Man Lymphocytes # (Manual) Monocytes # (Manual) PT INR APTT Fibrinogen ABG pH POC ABG pCO2 POC ABG pO2 ABG pO2 ABG Base Excess ABG Hemoglobin ABG Oxyhemoglobin ABG Sodium ABG Potassium ABG Chloride ABG Glucose Carboxyhemoglobin Sodium 151 H Potassium 2.8 L* Chloride 108.0 H Carbon Dioxide BUN 58 H Creatinine 2.2 H Glucose 103 H POC Glucose Lactic Acid Calcium 8.0 L Ionized Calcium Phosphorus Magnesium 1.40 L AST Alkaline Phosphatase Total Protein Albumin Triglycerides 216 H Arterial Blood Glucose Arterial Blood Ionized Calcium Urine WBC (Auto) > 182.0 H Urine Creatinine Crossmatch 01/17/21 01/17/21 01/18/21 11:24 23:00 04:15 WBC RBC Hgb Hct MCV MCHC RDW Plt Count Lymph % (Auto) Eos % (Auto) Lymph # (Auto) Eos # (Auto) Seg Neutrophils % Seg Neuts % (Manual) Lymphocytes % (Manual) Seg Neutrophils # Seg Neutrophils # Man Lymphocytes # (Manual) Monocytes # (Manual) PT INR APTT Fibrinogen ABG pH POC ABG pCO2 POC ABG pO2 ABG pO2 ABG Base Excess ABG Hemoglobin ABG Oxyhemoglobin ABG Sodium ABG Potassium ABG Chloride ABG Glucose Carboxyhemoglobin Sodium 153 H Potassium 3.3 L 3.3 L Chloride 113.1 H Carbon Dioxide BUN 55 H Creatinine 1.9 H Glucose POC Glucose 110 H Lactic Acid Calcium 7.4 L Ionized Calcium Phosphorus Magnesium AST Alkaline Phosphatase Total Protein Albumin Triglycerides Arterial Blood Glucose Arterial Blood Ionized Calcium Urine WBC (Auto) Urine Creatinine Crossmatch 01/18/21 01/18/21 01/19/21 10:37 21:00 05:00 WBC RBC 2.64 L Hgb 7.8 L Hct 22.7 L MCV MCHC RDW 16.8 H Plt Count Lymph % (Auto) Eos % (Auto) Lymph # (Auto) Eos # (Auto) Seg Neutrophils % Seg Neuts % (Manual) Lymphocytes % (Manual) Seg Neutrophils # Seg Neutrophils # Man Lymphocytes # (Manual) Monocytes # (Manual) PT INR APTT Fibrinogen ABG pH 7.512 H POC ABG pCO2 POC ABG pO2 47.8 L ABG pO2 ABG Base Excess ABG Hemoglobin 8.9 L ABG Oxyhemoglobin 83.3 L ABG Sodium 151.5 H ABG Potassium 2.9 L ABG Chloride 117.0 H ABG Glucose 111 H Carboxyhemoglobin Sodium Potassium 3.4 L Chloride Carbon Dioxide BUN Creatinine Glucose POC Glucose Lactic Acid Calcium Ionized Calcium Phosphorus Magnesium AST Alkaline Phosphatase Total Protein Albumin Triglycerides Arterial Blood Glucose 111 H Arterial Blood Ionized Calcium 4.3 L Urine WBC (Auto) Urine Creatinine Crossmatch 01/19/21 01/19/21 01/20/21 07:39 07:39 07:25 WBC RBC 2.82 L Hgb 8.2 L Hct 24.6 L MCV MCHC RDW 16.8 H Plt Count Lymph % (Auto) Eos % (Auto) Lymph # (Auto) Eos # (Auto) Seg Neutrophils % Seg Neuts % (Manual) Lymphocytes % (Manual) Seg Neutrophils # Seg Neutrophils # Man Lymphocytes # (Manual) Monocytes # (Manual) PT INR APTT Fibrinogen ABG pH POC ABG pCO2 POC ABG pO2 ABG pO2 ABG Base Excess ABG Hemoglobin ABG Oxyhemoglobin ABG Sodium ABG Potassium ABG Chloride ABG Glucose Carboxyhemoglobin Sodium 156 H Potassium 3.2 L Chloride 115.4 H Carbon Dioxide BUN 50 H Creatinine 1.6 H Glucose 108 H POC Glucose Lactic Acid Calcium 8.1 L Ionized Calcium Phosphorus Magnesium 1.50 L AST Alkaline Phosphatase Total Protein Albumin Triglycerides Arterial Blood Glucose Arterial Blood Ionized Calcium Urine WBC (Auto) 30.0 H Urine Creatinine Crossmatch 01/20/21 01/20/21 07:25 07:25 WBC RBC 2.94 L Hgb 8.4 L Hct 25.9 L MCV MCHC RDW 17.2 H Plt Count Lymph % (Auto) Eos % (Auto) Lymph # (Auto) Eos # (Auto) Seg Neutrophils % Seg Neuts % (Manual) Lymphocytes % (Manual) Seg Neutrophils # Seg Neutrophils # Man Lymphocytes # (Manual) Monocytes # (Manual) PT INR APTT Fibrinogen ABG pH POC ABG pCO2 POC ABG pO2 ABG pO2 ABG Base Excess ABG Hemoglobin ABG Oxyhemoglobin ABG Sodium ABG Potassium ABG Chloride ABG Glucose Carboxyhemoglobin Sodium 149 H Potassium Chloride 113.8 H Carbon Dioxide BUN 44 H Creatinine Glucose 108 H POC Glucose Lactic Acid Calcium Ionized Calcium Phosphorus Magnesium AST Alkaline Phosphatase Total Protein Albumin Triglycerides Arterial Blood Glucose Arterial Blood Ionized Calcium Urine WBC (Auto) Urine Creatinine Crossmatch
--- NOTE | 2021-01-20 13:43 | Progress Note ---
Assessment and Plan Impression * Nonoliguric acute kidney injury secondary to ATN --HD initiated December 30 * Incarcerated hernia with ischemic bowel. Status post bowel resection * Hypernatremia, * Fluid overload * Sepsis * Respiratory failure, intubated * Hyperkalemia * Metabolic Acidosis, Gap * Hypoalbuminemia * Anemia * Bacteremia Recommendations * Patient with good UOP. Patient seems to be in diuretic phase of ATN. * Serum creatinine is also trending down. Shall continue to hold dialysis for now. * Do not anticipate need for additional dialysis treatment. Patient is bacteremic. His Vas-Cath has been removed * Would recommend maintaining Lawrence catheter for now * Transfuse for Hb < 7 * TPN per nutrition/primary * Pressors prn to maintain MAP greater than 65 * Avoid nephrotoxins * Monitor fluid status and electrolytes * Replace potassium * Hypernatremia is improving. Continue intravenous D5W * Continue free water through feeding tube as well * Plans for transfer to LTAC noted Subjective Date of service: 01/20/21 Principal diagnosis: SBO and necrosis of large part of small intestine Interval history: Patient remains in the ICU. On the ventilator. On 30% FiO2 Objective - Vital Signs Vital signs: Vital Signs - 12hr 01/20/21 01/20/21 01/20/21 01:45 02:00 02:15 Temperature Pulse Rate 96 H 96 H 96 H Pulse Rate [ From Monitor] Respiratory Rate Blood Pressure 125/77 135/81 134/82 O2 Sat by Pulse 100 100 100 Oximetry 01/20/21 01/20/21 01/20/21 02:30 02:45 03:00 Temperature Pulse Rate 98 H 100 H 92 H Pulse Rate [ From Monitor] Respiratory Rate Blood Pressure 135/77 140/72 143/75 O2 Sat by Pulse 100 100 100 Oximetry 01/20/21 01/20/21 01/20/21 03:15 03:30 03:45 Temperature Pulse Rate 94 H 92 H 94 H Pulse Rate [ From Monitor] Respiratory Rate Blood Pressure 135/87 133/81 136/89 O2 Sat by Pulse 99 98 97 Oximetry 01/20/21 01/20/21 01/20/21 03:47 04:00 04:15 Temperature 100.2 F H Pulse Rate 93 H 92 H 93 H Pulse Rate [ 93 H From Monitor] Respiratory 30 H Rate Blood Pressure 136/89 130/85 146/84 O2 Sat by Pulse 98 98 99 Oximetry 01/20/21 01/20/21 01/20/21 04:31 04:36 04:45 Temperature 100.2 F H Pulse Rate 97 H 90 Pulse Rate [ From Monitor] Respiratory Rate Blood Pressure 134/82 132/74 O2 Sat by Pulse 100 100 Oximetry 01/20/21 01/20/21 01/20/21 05:00 05:15 05:30 Temperature Pulse Rate 88 91 H 82 Pulse Rate [ From Monitor] Respiratory Rate Blood Pressure 125/75 93/56 122/71 O2 Sat by Pulse 100 98 98 Oximetry 01/20/21 01/20/21 01/20/21 05:45 06:00 06:15 Temperature Pulse Rate 84 82 83 Pulse Rate [ From Monitor] Respiratory Rate Blood Pressure 131/75 109/66 118/74 O2 Sat by Pulse 99 94 94 Oximetry 01/20/21 01/20/21 01/20/21 06:30 06:45 07:01 Temperature Pulse Rate 86 87 87 Pulse Rate [ From Monitor] Respiratory 28 H 16 11 L Rate Blood Pressure 122/73 132/67 126/63 O2 Sat by Pulse 100 100 Oximetry 01/20/21 01/20/21 01/20/21 07:15 07:31 07:45 Temperature Pulse Rate 87 92 H 91 H Pulse Rate [ From Monitor] Respiratory 18 14 13 Rate Blood Pressure 127/71 116/56 135/77 O2 Sat by Pulse 100 100 73 L Oximetry 01/20/21 01/20/21 01/20/21 08:00 08:15 08:30 Temperature 98.8 F Pulse Rate 88 90 92 H Pulse Rate [ From Monitor] Respiratory 22 30 H 26 H Rate Blood Pressure 145/82 151/78 129/79 O2 Sat by Pulse 98 84 97 Oximetry 01/20/21 01/20/21 01/20/21 08:45 08:49 09:00 Temperature Pulse Rate 88 91 H 96 H Pulse Rate [ From Monitor] Respiratory 13 20 21 Rate Blood Pressure 142/70 142/70 135/75 O2 Sat by Pulse 100 93 100 Oximetry 01/20/21 01/20/21 01/20/21 09:15 09:30 09:45 Temperature Pulse Rate 94 H 90 89 Pulse Rate [ From Monitor] Respiratory 26 H 29 H 19 Rate Blood Pressure 138/73 140/68 124/78 O2 Sat by Pulse 96 100 90 Oximetry 01/20/21 01/20/21 01/20/21 10:01 10:15 10:30 Temperature Pulse Rate 91 H 97 H 98 H Pulse Rate [ From Monitor] Respiratory 21 27 H 26 H Rate Blood Pressure 126/69 124/75 136/77 O2 Sat by Pulse 100 100 100 Oximetry 01/20/21 01/20/21 01/20/21 10:45 11:00 12:00 Temperature 99 F Pulse Rate 93 H 93 H Pulse Rate [ From Monitor] Respiratory 27 H 25 H Rate Blood Pressure 124/75 116/80 O2 Sat by Pulse 100 96 Oximetry 01/20/21 13:18 Temperature Pulse Rate 97 H Pulse Rate [ From Monitor] Respiratory Rate Blood Pressure 139/79 O2 Sat by Pulse 98 Oximetry - General Appearance General appearance: well-developed, well-nourished, appears stated age, intubated EENT: ATNC Neck: no JVD, no thyromegaly, no carotid bruit, supple Respiratory: Present: Ronchi (Few scattered rhonchi) Cardiology: regular, normal heart rate Gastrointestinal: other (Midline dressing noted. Abdominal binder in place) Integumentary: other (No edema) - Lab 01/20/21 07:25 01/20/21 07:25 Most recent lab results ABG pH 7.512 (7.320-7.450) H 01/19/21 05:00 ABG pCO2 37.9 mm Hg 01/05/21 03:50 ABG pO2 136.8 mm Hg (80.0-90.0) H 01/05/21 03:50 ABG HCO3 22.4 mmol/L (20.0-26.0) 01/05/21 03:50 ABG O2 Saturation 84.4 (0-100) 01/19/21 05:00 Calcium 8.4 mg/dL (8.4-10.2) 01/20/21 07:25 Phosphorus 4.40 mg/dL (2.5-4.5) 01/17/21 04:30 Magnesium 1.90 mg/dL (1.7-2.3) 01/20/21 07:25 Urine Creatinine 17.6 mg/dL (0.1-20.0) 01/19/21 Unknown Urine Sodium 87 mmol/L 01/19/21 Unknown Medications & Allergies - Medications Allergies/Adverse Reactions: Allergies Iodinated Contrast Media Adverse Reaction (Verified 09/04/18 14:20) Unknown Home Medications: Home Medications Medication Instructions Recorded Confirmed Last Taken Type AtorvaSTATin [Lipitor] 80 mg PO QHS tablet 05/08/19 01/04/21 03/28/20 Rx Albuterol Sulfate [Proventil Hfa] 13.4 gm IH Q6H #1 hfa.aer.ad 04/01/20 01/04/21 Unknown Rx Dextrose 50% in Water [D50W (25GM) 50 ml IV Q30MIN PRN syringe 01/20/21 Unknown Rx Syringe] Famotidine [Pepcid] 20 mg PO BID tablet 01/20/21 Unknown Rx Free Water 300 ml PO Q4HR oral.liqd 01/20/21 Unknown Rx HYDROmorphone [Dilaudid] 0.25 mg IV Q4H PRN syringe 01/20/21 Unknown Rx HYDROmorphone [Dilaudid] 0.5 mg IV Q4H PRN syringe 01/20/21 Unknown Rx HYDROmorphone [Dilaudid] 1 mg IV Q4H syringe 01/20/21 Unknown Rx Insulin Regular, Human [HumuLIN R] 0 units SUB-Q Q6H units 01/20/21 Unknown Rx Lipase/Protease/Amylase [Pancreaze 1 each FEEDTUBE PRN PRN capsule 01/20/[address] 10,500 Unit] Min Oil/Petrolatum [Artificial 1 applic OU Q4HR PRN tube 01/20/21 Unknown Rx Tears Ophth Oint] Petrolatum,White [Vaseline Lip 1 applic TP Q2HR PRN tube 01/20/21 Unknown Rx Therapy] Potassium Chloride 40 meq FEEDTUBE BID packet 01/20/21 Unknown Rx QUEtiapine [SEROquel] 50 mg PO BID tablet 01/20/21 Unknown Rx Simple Syrup 15 ml FEEDTUBE PRN PRN oral.liqd 01/20/21 Unknown Rx Sodium Bicarbonate 325 mg FEEDTUBE PRN PRN tablet 01/20/21 Unknown Rx Sodium Chloride 0.9% Int [Sodium 10 ml IV BID syringe 01/20/21 Unknown Rx Chloride Flush Syringe 10 ml] Sodium Chloride 0.9% Int [Sodium 10 ml IV PRN PRN syringe 01/20/21 Unknown Rx Chloride Flush Syringe 10 ml] dexmedeTOMIDine [Dexmedetomidine] 1,000 mcg IV TITRATE vial 01/20/21 Unknown Rx fentaNYL 50 MCG/HR Patch 72HR 1 applic TD Q3D ea 01/20/21 Unknown Rx [Duragesic 50mcg] Active Medications: Generic Name Dose Route Start Last Admin Trade Name Freq PRN Reason Stop Dose Admin Acetaminophen 650 mg 01/16/21 03:57 01/19/21 19:46 Acetaminophen 325 Mg/10.15 Ml Oral Liqd Unit Dose FEEDTUBE 650 mg Q6H PRN Administration Non Cardiac Pain or Temp>100.5 Lipase/Protease/Amylase 1 each 01/07/21 08:44 Lipase 10,500/Protease 25,000/Amylase 43,750 (Units) Dr Maharaj FEEDTUBE PRN PRN For Clogged Feeding Tube Dextrose 50 ml 12/24/20 10:49 Dextrose 50% In Water (25gm) 50 Ml Syringe IV Q30MIN PRN Hypoglycemia Protocol Famotidine 20 mg 01/17/21 10:00 01/20/21 09:46 Famotidine 20 Mg Tab PO 20 mg BID ASCENCION Administration Fentanyl 1 applic 01/11/21 14:00 01/20/21 09:49 Fentanyl 50 Mcg/Hr Patch 72hr TD 1 applic Q3D ASCENCION Administration Heparin Sodium (Porcine) 5,000 unit 01/06/21 14:00 01/20/21 13:26 Heparin 5,000 Unit/1 Ml Vial SUB-Q 5,000 unit Q8HR ASCENCION Administration Hydromorphone HCl 0.5 mg 01/12/21 10:10 01/17/21 15:00 Hydromorphone 1 Mg/1 Ml Inj IV 0.5 mg Q4H PRN Administration Pain , Severe (7-10) Hydromorphone HCl 0.25 mg 01/12/21 10:11 01/15/21 15:40 Hydromorphone 1 Mg/1 Ml Inj IV 0.25 mg Q4H PRN Administration Pain, Moderate (4-6) Hydromorphone HCl 1 mg 01/19/21 11:00 01/20/21 10:17 Hydromorphone 1 Mg/1 Ml Inj IV 1 mg Q4H ASCENCION Administration Hydrophilic Ointment 1 applic 12/20/20 21:58 Lip Therapy Vaseline TP Q2HR PRN Dry Lips Propofol 1,000 mg in 100 mls @ 3.606 mls/hr 12/20/20 22:00 01/19/21 15:12 Diprivan 10 Mg/Ml IV 0 mcg/kg/min TITR ASCENCION 0 mls/hr Titration Protocol 5 MCG/KG/MIN Dexmedetomidine HCl 1,000 mcg/ 260 mls @ 7.322 mls/hr 01/15/21 01:00 01/20/21 08:54 Sodium Chloride IV 1.2 mcg/kg/hr TITRATE ASCENCION 43.93 mls/hr Administration Protocol 0.2 MCG/KG/HR Potassium Chloride 20 meq/ 1,010 mls @ 125 mls/hr 01/19/21 09:30 01/20/21 04:27 Dextrose IV 01/21/21 17:35 125 mls/hr DIRECT ASCENCION Administration Cefepime HCl 2 gm in 100 mls @ 200 mls/hr 01/20/21 12:00 01/20/21 13:00 Cefepime/Ns 2 Gm/100 Ml IV 01/26/21 22:29 200 mls/hr Q12HR ASCENCION Administration Protocol Insulin Human Regular 0 units 12/28/20 00:00 01/20/21 13:24 Insulin Regular, Human 100 Units/1 Ml SUB-Q Not Given Q6H ASCENCION Protocol Metoprolol Tartrate 5 mg 01/14/21 13:37 01/15/21 12:42 Metoprolol Tartrate 5 Mg/5 Ml Inj IV 5 mg Q6H PRN Administration SBP >/=160 Multi-Ingred Cream/Lotion/Oil/Oint 1 applic 12/20/20 21:58 01/03/21 01:13 Mineral Oil/Petrolatum, White Ophth Oint 3.5 Gm OU 1 applic Q4HR PRN Administration Dry Eye(s) Quetiapine Fumarate 50 mg 01/19/21 12:00 01/20/21 09:47 Quetiapine 25 Mg Tab PO 50 mg BID ASCENCION Administration Simple Syrup 15 ml 01/07/21 08:44 Simple Syrup 15 Ml FEEDTUBE PRN PRN Hypoglycemia Sodium Bicarbonate 325 mg 01/07/21 08:44 Sodium Bicarbonate 325 Mg Tab FEEDTUBE PRN PRN For Clogged Feeding Tube Sodium Chloride 10 ml 12/20/20 22:00 01/20/21 09:48 Sodium Chloride 0.9% 10 Ml Flush Syringe IV 10 ml BID ASCENCION Administration Sodium Chloride 10 ml 12/20/20 16:42 01/17/21 06:01 Sodium Chloride 0.9% 10 Ml Flush Syringe IV 10 ml PRN PRN Administration LINE FLUSH
--- NOTE | 2021-01-20 18:45 | Event Note ---
Date: 01/20/21 Patient was discharged from the hospital and picked up by ambulance transport. However it was noted that the ambulance transport came later than scheduled. Ambulance transport picked up the patient and brought the patient back to the hospital. Apparently one of the drivers was uncomfortable transporting the patient to [facility] because the patient was signaling that he did not want to go to the LTAC and patient was agitated. However upon arrival to the ICU at [facility], patient was completely stable, vitals were comple tely stable. A second ambulance team came to tile picker the patient, however we called [facility] and stated the situation, they stated they could not take the patient today, they will take the patient tomorrow. Dr. Cherry has been informed, patient placed back in the room back on the vent. Continue orders for the patient as outlined in the patient's current med rec. Anticipate discharge within 24 hours.
[2021-01-20] MEDS: ACETAMINOPHEN 325 MG/10.15 ML ORAL LIQD UNIT DOSE FEEDTUBE PRN (22:01)
[2021-01-21] MEDS: dexmedeTOMIDine 1,000 MCG in SODIUM CHLORIDE 0.9% 250ML 250 ML IV SCH ×3 (01:50→19:36)
[2021-01-21] MEDS: HYDROmorphone 1 MG/1 ML INJ IV SCH ×6 (06:10→23:05)
[2021-01-21] MEDS: HEPARIN 5,000 UNIT/1 ML VIAL SUB-Q SCH ×3 (06:15→22:00)
[2021-01-21] MEDS: FREE WATER PO SCH ×5 (06:18→18:21)
[2021-01-21] MEDS: ACETAMINOPHEN 325 MG/10.15 ML ORAL LIQD UNIT DOSE FEEDTUBE PRN ×2 (06:20→16:25)
[2021-01-21] MEDS: INSULIN REGULAR, HUMAN 100 UNITS/1 ML SUB-Q SCH ×3 (07:00→18:20)
[2021-01-21 08:54] LABS: Calcium 8.3 mg/dL (8.4-10.2)
[2021-01-21] MEDS: CEFEPIME/NS 2 GM/100 ML 2 GM/100 ML BAG IV SCH ×2 (09:39→22:00)
[2021-01-21] MEDS: FAMOTIDINE 20 MG TAB PO SCH ×2 (09:40→22:00)
[2021-01-21] MEDS: QUEtiapine 25 MG TAB PO SCH ×2 (09:40→22:00)
--- NOTE | 2021-01-21 09:43 | Electrocardiograph Report ---
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
--- NOTE | 2021-01-21 10:30 | Progress Note ---
Assessment and Plan 60 y/o male with abdominal catastrophe, s/p ex-lap with open abdomen, ventilated for pain control and support. 01/21/21: Hopeful patient will be transported today and not with [employer]. Continue supportive measures. 01/20/21: No objection to discharge to [facility] today. Suggest continued scheduled pain control to help with weaning. Hopeful patient will not need trach. PT/OT at LTACH. Abx therapy per ID recs. Stable for transfer as he has no hemodynamic instability. 01/19/21: Discussed the patient on rounds with nurse at bedside and then with rest Interdisciplinary team. The persistent fever is bothersome, but it appears that we have a source from this abdominal wound. The ID docs have changed abx therapy to reflect this. Despite the patient having large amounts of urine and scrotal edema, will go ahead and remove the haley as this still could be a potential source for infection and persistent fever. Hemodynamically the patient is stable and we are treating with abx. I have no objection to discharge to LTACH facillity as long as they are comfortable with the transfer. We have restarted the scheduled pain meds to see if this can get him off all continued sedation. Agree with fiber and modification of tube feeds to help with diarrhea. Prognosis remains guarded. 01/18/21: Ok with transfer to LTACH. Spoke with nursing today about removal of vascath and changing of haley. Will be done. Abx per ID. asked [facility] to speak with surgery in regards to wound if any further therapy is needed. Defer to renal in regards to further therapy for electrolytes. 01/17/21: Will discuss renal but most likely vascath should be removed. Abx per ID. Renal has requested the haley stay in for urine output measurement and I agree. Waiting to here from insurer about LTACH as patient will need it for vent recovery and weaning. Monitor BP closely, may need to start replacing fluids 1:1. Will defer to renal on type of fluid given electrolyte imbalances. Prognosis still remains guarded. 01/16/21: Follow up blood cultures from last night. need to send ua as well. Renal holding HD today, hopeful patient is in the diuretic phase of ATN. Will have RT place patient on PSV trial today to see how he does. Hold on abx therapy for right now. If cultures come back positive, will need to remove right IJ vascath which was just placed on Saturday at the suggestion of infection control and infectious days. completed letter for insurance for patient today, hopeful will be LTACH approved soon. 01/13/21: Place IJ vascath today. Added PRN dilaudid on lebron of scheduled dilaudid. Goal is to not put patient back on continuous drip for pain so that we can facilitate weaning. needs peer to peer for LTACH approval. Continue supportive measures. 01/12/21: Patient getting dialysis today. Continue to control pain, added PRN dilauded on top of scheduled dosing as patient still gets very agitated off diprovan. Will discuss with renal plans for future HD as ID and Infection control are very concerned about the groin catheter. If permanent dialysis then will ask that IR place permcath. if they feel intermittent, then will place IJ and remove femoral vascath. 01/11/21: Will increase pain regimen. Scheduled the dilaudid to q4 and add a fent patch. Would like to avoid drip as we are trying to actively wean patient from mechanical ventilation. Spoke with CM who states LTACH has accepted patient but we are waiting on insurance authorization. HgB is stable this am and reviewed surgery and IR recs. I do no think the area of fluid needs to be sampled. 01/10/21: Spoke with surgery this am about CT findings. Will discuss with IR their thoughts on fluid. Not concerned about infection in that area. Main reason for CT was to see if we could figure out where blood was going as it was coming out of his bottom or NG contents. This is appears to be something small and slow, like a venous issues. Hopefully it has sealed off at this time. HgB is up to 8 this am patient did not get blood on yesterday. Off fent now, will continue to wean Diprovan and Precedex as tolerated. Spoke with CM and asked to send out to LTACH's but will steal try to aggressively wean. Making good urine, hopeful kidney's will recover. Will ask renal about other ways to remove volume in third spacing (albumin, lasix etc). Prognosis still remains guarded. Continue TPN for now. 01/09/21: Will obtain contrasted CT of abdomen and pelvis to look for potential pockets of blood or bleeding. Spoke with renal and they feel kidneys are recovering but ok with HD tomorrow if needed post dye load. Will attempt to wean Fent more and use prn dilaudid. Will start reglan to help with gut motility. Hopeful to be off TPN soon. Once sedation is off, can start SBT's. CCT 31 minutes. Subjective Date of service: 01/21/21 Principal diagnosis: SBO and necrosis of large part of small intestine Interval history: No acute events overnight. Patient was returned back to the hospital yesterday evening as per the EMS, he refused to go (patient adamantly denies doing this). Several nursing and RT notes document that this company [employer] was in error. Patient is awake and alert, currently on PSV. Objective Vital Signs - 12hr 01/20/21 01/20/21 01/20/21 22:30 22:45 23:00 Temperature Pulse Rate 89 88 87 Pulse Rate [ From Monitor] Respiratory 26 H 28 H 26 H Rate Blood Pressure 91/59 97/64 95/64 O2 Sat by Pulse 100 100 100 Oximetry 01/20/21 01/20/21 01/20/21 23:15 23:24 23:30 Temperature Pulse Rate 88 88 88 Pulse Rate [ From Monitor] Respiratory 26 H 27 H 26 H Rate Blood Pressure 90/66 90/66 91/65 O2 Sat by Pulse 100 100 100 Oximetry 01/20/21 01/20/21 01/21/21 23:34 23:45 00:00 Temperature 100.4 F H Pulse Rate 88 88 Pulse Rate [ 88 From Monitor] Respiratory 29 H 25 H Rate Blood Pressure 92/61 108/73 O2 Sat by Pulse 100 100 Oximetry 01/21/21 01/21/21 01/21/21 00:07 00:15 00:30 Temperature Pulse Rate 87 87 86 Pulse Rate [ From Monitor] Respiratory 28 H 26 H Rate Blood Pressure 108/73 90/61 94/66 O2 Sat by Pulse 100 100 100 Oximetry 01/21/21 01/21/21 01/21/21 00:45 01:00 01:15 Temperature Pulse Rate 86 91 H 84 Pulse Rate [ From Monitor] Respiratory 27 H 26 H 25 H Rate Blood Pressure 97/67 102/66 93/62 O2 Sat by Pulse 100 100 100 Oximetry 01/21/21 01/21/21 01/21/21 01:30 01:45 02:00 Temperature Pulse Rate 91 H 96 H 97 H Pulse Rate [ From Monitor] Respiratory 18 26 H 26 H Rate Blood Pressure 113/56 120/77 127/78 O2 Sat by Pulse 100 91 100 Oximetry 01/21/21 01/21/21 01/21/21 02:15 02:30 02:45 Temperature Pulse Rate 97 H 99 H 99 H Pulse Rate [ From Monitor] Respiratory 23 20 17 Rate Blood Pressure 108/82 109/79 109/79 O2 Sat by Pulse 100 100 99 Oximetry 01/21/21 01/21/21 01/21/21 03:00 03:15 03:31 Temperature Pulse Rate 102 H 101 H 106 H Pulse Rate [ From Monitor] Respiratory 13 23 22 Rate Blood Pressure 116/86 117/71 104/71 O2 Sat by Pulse 99 99 99 Oximetry 01/21/21 01/21/21 01/21/21 03:32 03:45 04:00 Temperature 101 F H Pulse Rate 101 H 100 H 98 H Pulse Rate [ 103 H From Monitor] Respiratory 27 H 23 Rate Blood Pressure 104/71 109/73 114/79 O2 Sat by Pulse 100 99 100 Oximetry 01/21/21 01/21/21 01/21/21 04:15 04:30 04:45 Temperature Pulse Rate 99 H 99 H 105 H Pulse Rate [ From Monitor] Respiratory 31 H 23 25 H Rate Blood Pressure 111/80 107/80 130/76 O2 Sat by Pulse 99 98 99 Oximetry 01/21/21 01/21/21 01/21/21 05:00 05:15 05:30 Temperature Pulse Rate 98 H 104 H 103 H Pulse Rate [ From Monitor] Respiratory 25 H 26 H 20 Rate Blood Pressure 112/78 113/83 137/77 O2 Sat by Pulse 100 99 99 Oximetry 01/21/21 01/21/21 01/21/21 05:45 06:00 06:15 Temperature Pulse Rate 100 H 102 H 97 H Pulse Rate [ From Monitor] Respiratory 15 25 H 22 Rate Blood Pressure 127/87 120/86 122/65 O2 Sat by Pulse 99 100 98 Oximetry 01/21/21 01/21/21 01/21/21 06:30 06:45 07:00 Temperature Pulse Rate 100 H 96 H 96 H Pulse Rate [ From Monitor] Respiratory 24 20 18 Rate Blood Pressure 129/78 131/78 111/72 O2 Sat by Pulse 100 99 100 Oximetry 01/21/21 01/21/21 01/21/21 07:15 07:30 07:40 Temperature Pulse Rate 103 H 101 H 98 H Pulse Rate [ From Monitor] Respiratory 22 25 H Rate Blood Pressure 126/75 116/80 116/80 O2 Sat by Pulse 100 99 100 Oximetry 01/21/21 01/21/21 01/21/21 07:45 08:00 08:15 Temperature 99.8 F H Pulse Rate 100 H 96 H 94 H Pulse Rate [ From Monitor] Respiratory 25 H 22 17 Rate Blood Pressure 116/80 101/66 101/66 O2 Sat by Pulse 100 100 100 Oximetry 01/21/21 01/21/21 01/21/21 08:30 08:45 09:00 Temperature Pulse Rate 94 H 95 H 103 H Pulse Rate [ From Monitor] Respiratory 24 28 H 23 Rate Blood Pressure 120/80 120/80 O2 Sat by Pulse 99 100 100 Oximetry 01/21/21 01/21/21 01/21/21 09:15 09:31 09:45 Temperature Pulse Rate 105 H 98 H 99 H Pulse Rate [ From Monitor] Respiratory 22 14 16 Rate Blood Pressure 129/83 129/83 O2 Sat by Pulse 100 99 100 Oximetry Constitutional: other (critically ill on ventilator and back on sedation) Eyes: non-icteric ENT: oropharynx moist Neck: supple Effort: normal Ascultation: Bilateral: other (coarse BS bilaterally) Cardiovascular: other (tachy, RR; no mrg) Gastrointestinal: other (abdomen open) Integumentary: normal Extremities: no cyanosis, no edema, pink and warm Neurologic: other (sedated) CBC and BMP: 01/20/21 07:25 01/21/21 08:20 ABG, PT/INR, D-dimer: ABG ABG pH 7.512 (7.320-7.450) H 01/19/21 05:00 POC ABG pCO2 32.5 mmHg (32.0-48.0) 01/19/21 05:00 ABG pCO2 37.9 mm Hg 01/05/21 03:50 POC ABG pO2 47.8 mmHg (83-108) L 01/19/21 05:00 ABG pO2 136.8 mm Hg (80.0-90.0) H 01/05/21 03:50 POC ABG HCO3 25.5 01/19/21 05:00 ABG O2 Saturation 84.4 (0-100) 01/19/21 05:00 PT/INR, D-dimer PT 15.4 Sec. (12.2-14.9) H 01/10/21 04:01 INR 1.17 (0.87-1.13) H 01/10/21 04:01 Abnormal lab findings: Abnormal Labs 12/20/20 12/20/20 12/20/20 13:58 13:58 13:58 WBC 41.1 H* RBC 5.59 H Hgb 16.2 H Hct 47.7 H MCV MCHC RDW 15.5 H Plt Count 486 H Lymph % (Auto) Eos % (Auto) Lymph # (Auto) Eos # (Auto) Seg Neutrophils % Seg Neuts % (Manual) Lymphocytes % (Manual) Seg Neutrophils # Seg Neutrophils # Man Lymphocytes # (Manual) Monocytes # (Manual) PT INR APTT Fibrinogen ABG pH POC ABG pCO2 POC ABG pO2 ABG pO2 ABG Base Excess ABG Hemoglobin ABG Oxyhemoglobin ABG Sodium ABG Potassium ABG Chloride ABG Glucose Carboxyhemoglobin Sodium 130 L Potassium Chloride 80.7 L Carbon Dioxide BUN 37 H Creatinine Glucose 101 H POC Glucose Lactic Acid 3.20 H* Calcium Ionized Calcium Phosphorus Magnesium AST Alkaline Phosphatase 142 H Total Protein 6.2 L Albumin 2.2 L Triglycerides Arterial Blood Glucose Arterial Blood Ionized Calcium Urine WBC (Auto) Urine Creatinine Crossmatch 12/20/20 12/20/20 12/20/20 13:58 20:35 21:30 WBC RBC Hgb Hct MCV MCHC RDW Plt Count Lymph % (Auto) Eos % (Auto) Lymph # (Auto) Eos # (Auto) Seg Neutrophils % Seg Neuts % (Manual) Lymphocytes % (Manual) Seg Neutrophils # Seg Neutrophils # Man Lymphocytes # (Manual) Monocytes # (Manual) PT INR APTT 49.4 H Fibrinogen ABG pH 7.313 L POC ABG pCO2 POC ABG pO2 ABG pO2 104.4 H ABG Base Excess ABG Hemoglobin ABG Oxyhemoglobin ABG Sodium ABG Potassium ABG Chloride ABG Glucose Carboxyhemoglobin Sodium Potassium Chloride Carbon Dioxide BUN Creatinine Glucose POC Glucose 122 H Lactic Acid Calcium Ionized Calcium Phosphorus Magnesium AST Alkaline Phosphatase Total Protein Albumin Triglycerides Arterial Blood Glucose Arterial Blood Ionized Calcium Urine WBC (Auto) Urine Creatinine Crossmatch 12/21/20 12/21/20 12/21/20 03:06 08:14 08:14 WBC 23.9 H RBC Hgb Hct MCV MCHC RDW 15.7 H Plt Count Lymph % (Auto) Eos % (Auto) Lymph # (Auto) Eos # (Auto) Seg Neutrophils % Seg Neuts % (Manual) 91.0 H Lymphocytes % (Manual) 3.0 L Seg Neutrophils # Seg Neutrophils # Man 21.7 H Lymphocytes # (Manual) 0.7 L Monocytes # (Manual) 1.4 H PT INR APTT Fibrinogen ABG pH 7.464 H POC ABG pCO2 POC ABG pO2 202.9 H ABG pO2 ABG Base Excess ABG Hemoglobin ABG Oxyhemoglobin ABG Sodium 133.7 L ABG Potassium ABG Chloride ABG Glucose 122 H Carboxyhemoglobin Sodium Potassium Chloride Carbon Dioxide BUN 46 H Creatinine Glucose 103 H POC Glucose Lactic Acid Calcium 6.6 L D Ionized Calcium Phosphorus Magnesium AST Alkaline Phosphatase Total Protein 5.4 L Albumin 2.3 L Triglycerides Arterial Blood Glucose 122 H Arterial Blood Ionized Calcium 3.5 L Urine WBC (Auto) Urine Creatinine Crossmatch 12/21/20 12/21/20 12/22/20 17:18 21:28 04:45 WBC 22.9 H RBC Hgb Hct MCV MCHC RDW 15.7 H Plt Count Lymph % (Auto) Eos % (Auto) Lymph # (Auto) Eos # (Auto) Seg Neutrophils % Seg Neuts % (Manual) Lymphocytes % (Manual) Seg Neutrophils # Seg Neutrophils # Man Lymphocytes # (Manual) Monocytes # (Manual) PT INR APTT Fibrinogen ABG pH POC ABG pCO2 POC ABG pO2 ABG pO2 ABG Base Excess ABG Hemoglobin ABG Oxyhemoglobin ABG Sodium ABG Potassium ABG Chloride ABG Glucose Carboxyhemoglobin Sodium Potassium Chloride Carbon Dioxide BUN Creatinine Glucose POC Glucose 108 H Lactic Acid Calcium Ionized Calcium 4.1 L Phosphorus Magnesium AST Alkaline Phosphatase Total Protein Albumin Triglycerides Arterial Blood Glucose Arterial Blood Ionized Calcium Urine WBC (Auto) Urine Creatinine Crossmatch 12/22/20 12/22/20 12/22/20 04:45 05:00 11:38 WBC RBC Hgb Hct MCV MCHC RDW Plt Count Lymph % (Auto) Eos % (Auto) Lymph # (Auto) Eos # (Auto) Seg Neutrophils % Seg Neuts % (Manual) Lymphocytes % (Manual) Seg Neutrophils # Seg Neutrophils # Man Lymphocytes # (Manual) Monocytes # (Manual) PT INR APTT Fibrinogen ABG pH 7.462 H POC ABG pCO2 POC ABG pO2 ABG pO2 ABG Base Excess ABG Hemoglobin ABG Oxyhemoglobin ABG Sodium ABG Potassium ABG Chloride ABG Glucose 118 H Carboxyhemoglobin Sodium 146 H Potassium Chloride Carbon Dioxide BUN 45 H Creatinine Glucose 116 H POC Glucose 115 H Lactic Acid Calcium 6.9 L Ionized Calcium Phosphorus Magnesium AST Alkaline Phosphatase Total Protein Albumin Triglycerides Arterial Blood Glucose 118 H Arterial Blood Ionized Calcium 3.8 L Urine WBC (Auto) Urine Creatinine Crossmatch 12/22/20 12/23/20 12/23/20 23:26 04:43 04:45 WBC 22.2 H RBC Hgb Hct MCV MCHC RDW 16.1 H Plt Count Lymph % (Auto) Eos % (Auto) Lymph # (Auto) Eos # (Auto) Seg Neutrophils % Seg Neuts % (Manual) Lymphocytes % (Manual) Seg Neutrophils # Seg Neutrophils # Man Lymphocytes # (Manual) Monocytes # (Manual) PT INR APTT Fibrinogen ABG pH POC ABG pCO2 POC ABG pO2 ABG pO2 ABG Base Excess ABG Hemoglobin ABG Oxyhemoglobin ABG Sodium 147.4 H ABG Potassium ABG Chloride 112.0 H ABG Glucose 130 H Carboxyhemoglobin 0.4 L Sodium Potassium Chloride Carbon Dioxide BUN Creatinine Glucose POC Glucose 110 H Lactic Acid Calcium Ionized Calcium Phosphorus Magnesium AST Alkaline Phosphatase Total Protein Albumin Triglycerides Arterial Blood Glucose 130 H Arterial Blood Ionized Calcium 3.8 L Urine WBC (Auto) Urine Creatinine Crossmatch 12/23/20 12/23/20 12/23/20 04:45 05:17 11:22 WBC RBC Hgb Hct MCV MCHC RDW Plt Count Lymph % (Auto) Eos % (Auto) Lymph # (Auto) Eos # (Auto) Seg Neutrophils % Seg Neuts % (Manual) Lymphocytes % (Manual) Seg Neutrophils # Seg Neutrophils # Man Lymphocytes # (Manual) Monocytes # (Manual) PT INR APTT Fibrinogen ABG pH POC ABG pCO2 POC ABG pO2 ABG pO2 ABG Base Excess ABG Hemoglobin ABG Oxyhemoglobin ABG Sodium ABG Potassium ABG Chloride ABG Glucose Carboxyhemoglobin Sodium 154 H D Potassium Chloride 110.9 H Carbon Dioxide BUN 54 H Creatinine 1.8 H Glucose 115 H POC Glucose 116 H 130 H Lactic Acid Calcium 7.0 L Ionized Calcium Phosphorus Magnesium AST Alkaline Phosphatase Total Protein Albumin Triglycerides Arterial Blood Glucose Arterial Blood Ionized Calcium Urine WBC (Auto) Urine Creatinine Crossmatch 12/23/20 12/23/20 12/23/20 12:15 12:15 23:15 WBC RBC Hgb Hct MCV MCHC RDW Plt Count Lymph % (Auto) Eos % (Auto) Lymph # (Auto) Eos # (Auto) Seg Neutrophils % Seg Neuts % (Manual) Lymphocytes % (Manual) Seg Neutrophils # Seg Neutrophils # Man Lymphocytes # (Manual) Monocytes # (Manual) PT INR APTT Fibrinogen ABG pH POC ABG pCO2 POC ABG pO2 ABG pO2 ABG Base Excess ABG Hemoglobin ABG Oxyhemoglobin ABG Sodium ABG Potassium ABG Chloride ABG Glucose Carboxyhemoglobin Sodium 154 H Potassium Chloride Carbon Dioxide BUN Creatinine 1.5 H Glucose POC Glucose 132 H Lactic Acid Calcium Ionized Calcium Phosphorus Magnesium AST Alkaline Phosphatase Total Protein Albumin Triglycerides Arterial Blood Glucose Arterial Blood Ionized Calcium Urine WBC (Auto) Urine Creatinine 78.1 H Crossmatch 12/24/20 12/24/20 12/24/20 04:19 04:30 04:30 WBC 18.3 H RBC Hgb Hct MCV MCHC RDW 16.5 H Plt Count Lymph % (Auto) Eos % (Auto) Lymph # (Auto) Eos # (Auto) Seg Neutrophils % Seg Neuts % (Manual) Lymphocytes % (Manual) Seg Neutrophils # Seg Neutrophils # Man Lymphocytes # (Manual) Monocytes # (Manual) PT INR APTT Fibrinogen ABG pH POC ABG pCO2 POC ABG pO2 ABG pO2 ABG Base Excess ABG Hemoglobin ABG Oxyhemoglobin ABG Sodium 149.7 H ABG Potassium ABG Chloride 116.0 H ABG Glucose 180 H Carboxyhemoglobin Sodium 155 H Potassium Chloride 116.1 H Carbon Dioxide BUN 52 H Creatinine 1.5 H Glucose 175 H POC Glucose Lactic Acid Calcium 6.8 L Ionized Calcium Phosphorus Magnesium 3.00 H AST Alkaline Phosphatase Total Protein 5.7 L Albumin 1.8 L Triglycerides Arterial Blood Glucose 180 H Arterial Blood Ionized Calcium 3.7 L Urine WBC (Auto) Urine Creatinine Crossmatch 12/24/20 12/24/20 12/24/20 05:24 11:21 18:05 WBC RBC Hgb Hct MCV MCHC RDW Plt Count Lymph % (Auto) Eos % (Auto) Lymph # (Auto) Eos # (Auto) Seg Neutrophils % Seg Neuts % (Manual) Lymphocytes % (Manual) Seg Neutrophils # Seg Neutrophils # Man Lymphocytes # (Manual) Monocytes # (Manual) PT INR APTT Fibrinogen ABG pH POC ABG pCO2 POC ABG pO2 ABG pO2 ABG Base Excess ABG Hemoglobin ABG Oxyhemoglobin ABG Sodium ABG Potassium ABG Chloride ABG Glucose Carboxyhemoglobin Sodium Potassium Chloride Carbon Dioxide BUN Creatinine Glucose POC Glucose 153 H 154 H 133 H Lactic Acid Calcium Ionized Calcium Phosphorus Magnesium AST Alkaline Phosphatase Total Protein Albumin Triglycerides Arterial Blood Glucose Arterial Blood Ionized Calcium Urine WBC (Auto) Urine Creatinine Crossmatch 12/25/20 12/25/20 12/25/20 04:00 07:00 07:00 WBC 17.6 H RBC Hgb Hct MCV MCHC 31 L RDW 16.0 H Plt Count Lymph % (Auto) Eos % (Auto) Lymph # (Auto) Eos # (Auto) Seg Neutrophils % Seg Neuts % (Manual) Lymphocytes % (Manual) Seg Neutrophils # Seg Neutrophils # Man Lymphocytes # (Manual) Monocytes # (Manual) PT INR APTT Fibrinogen ABG pH POC ABG pCO2 POC ABG pO2 ABG pO2 ABG Base Excess ABG Hemoglobin ABG Oxyhemoglobin ABG Sodium 152.5 H ABG Potassium ABG Chloride 119.0 H ABG Glucose 136 H Carboxyhemoglobin Sodium Potassium Chloride Carbon Dioxide BUN Creatinine Glucose POC Glucose Lactic Acid Calcium Ionized Calcium Phosphorus Magnesium 2.70 H AST Alkaline Phosphatase Total Protein Albumin Triglycerides Arterial Blood Glucose 136 H Arterial Blood Ionized Calcium 3.7 L Urine WBC (Auto) Urine Creatinine Crossmatch 12/25/20 12/25/20 12/25/20 07:00 11:24 16:32 WBC RBC Hgb Hct MCV MCHC RDW Plt Count Lymph % (Auto) Eos % (Auto) Lymph # (Auto) Eos # (Auto) Seg Neutrophils % Seg Neuts % (Manual) Lymphocytes % (Manual) Seg Neutrophils # Seg Neutrophils # Man Lymphocytes # (Manual) Monocytes # (Manual) PT INR APTT Fibrinogen ABG pH POC ABG pCO2 POC ABG pO2 ABG pO2 ABG Base Excess ABG Hemoglobin ABG Oxyhemoglobin ABG Sodium ABG Potassium ABG Chloride ABG Glucose Carboxyhemoglobin Sodium 156 H Potassium Chloride 118.0 H Carbon Dioxide BUN 44 H Creatinine 1.7 H Glucose 126 H POC Glucose 110 H 126 H Lactic Acid Calcium 6.9 L Ionized Calcium Phosphorus Magnesium AST Alkaline Phosphatase Total Protein Albumin Triglycerides Arterial Blood Glucose Arterial Blood Ionized Calcium Urine WBC (Auto) Urine Creatinine Crossmatch 12/25/20 12/25/20 12/26/20 18:18 23:23 03:30 WBC RBC Hgb Hct MCV MCHC RDW Plt Count Lymph % (Auto) Eos % (Auto) Lymph # (Auto) Eos # (Auto) Seg Neutrophils % Seg Neuts % (Manual) Lymphocytes % (Manual) Seg Neutrophils # Seg Neutrophils # Man Lymphocytes # (Manual) Monocytes # (Manual) PT INR APTT Fibrinogen ABG pH POC ABG pCO2 POC ABG pO2 ABG pO2 ABG Base Excess ABG Hemoglobin 11.8 L ABG Oxyhemoglobin ABG Sodium ABG Potassium 4.7 H ABG Chloride 114.0 H ABG Glucose 132 H Carboxyhemoglobin Sodium 151 H Potassium Chloride 114.3 H Carbon Dioxide BUN 51 H Creatinine 2.6 H D Glucose 122 H POC Glucose 115 H Lactic Acid Calcium 6.4 L Ionized Calcium Phosphorus Magnesium AST Alkaline Phosphatase Total Protein Albumin Triglycerides Arterial Blood Glucose 132 H Arterial Blood Ionized Calcium 3.6 L Urine WBC (Auto) Urine Creatinine Crossmatch 12/26/20 12/26/20 12/26/20 04:55 06:01 06:01 WBC 21.6 H RBC Hgb Hct MCV MCHC 31 L RDW 16.5 H Plt Count 136 L Lymph % (Auto) Eos % (Auto) Lymph # (Auto) Eos # (Auto) Seg Neutrophils % Seg Neuts % (Manual) Lymphocytes % (Manual) Seg Neutrophils # Seg Neutrophils # Man Lymphocytes # (Manual) Monocytes # (Manual) PT INR APTT Fibrinogen ABG pH POC ABG pCO2 POC ABG pO2 ABG pO2 ABG Base Excess ABG Hemoglobin ABG Oxyhemoglobin ABG Sodium ABG Potassium ABG Chloride ABG Glucose Carboxyhemoglobin Sodium 173 H* D Potassium 6.1 H* D Chloride 137.0 H Carbon Dioxide BUN 73 H Creatinine 3.8 H Glucose 125 H POC Glucose 112 H Lactic Acid Calcium 6.2 L Ionized Calcium Phosphorus 5.70 H D Magnesium 2.90 H AST Alkaline Phosphatase Total Protein Albumin Triglycerides Arterial Blood Glucose Arterial Blood Ionized Calcium Urine WBC (Auto) Urine Creatinine Crossmatch 12/26/20 12/26/20 12/26/20 08:33 11:19 22:00 WBC RBC Hgb Hct MCV MCHC RDW Plt Count Lymph % (Auto) Eos % (Auto) Lymph # (Auto) Eos # (Auto) Seg Neutrophils % Seg Neuts % (Manual) Lymphocytes % (Manual) Seg Neutrophils # Seg Neutrophils # Man Lymphocytes # (Manual) Monocytes # (Manual) PT INR APTT Fibrinogen ABG pH POC ABG pCO2 POC ABG pO2 ABG pO2 ABG Base Excess ABG Hemoglobin ABG Oxyhemoglobin ABG Sodium ABG Potassium ABG Chloride ABG Glucose Carboxyhemoglobin Sodium 147 H D Potassium 5.8 H D Chloride 108.8 H Carbon Dioxide 21 L BUN 68 H 68 H Creatinine 3.8 H 4.1 H Glucose 144 H 154 H POC Glucose 144 H Lactic Acid Calcium 6.5 L 5.8 L* Ionized Calcium Phosphorus Magnesium AST 215 H Alkaline Phosphatase Total Protein 4.7 L Albumin 1.5 L Triglycerides Arterial Blood Glucose Arterial Blood Ionized Calcium Urine WBC (Auto) Urine Creatinine Crossmatch 12/26/20 12/26/20 12/27/20 23:13 Unknown 00:25 WBC RBC Hgb 11.1 L Hct MCV MCHC RDW Plt Count Lymph % (Auto) Eos % (Auto) Lymph # (Auto) Eos # (Auto) Seg Neutrophils % Seg Neuts % (Manual) Lymphocytes % (Manual) Seg Neutrophils # Seg Neutrophils # Man Lymphocytes # (Manual) Monocytes # (Manual) PT INR APTT Fibrinogen ABG pH POC ABG pCO2 POC ABG pO2 ABG pO2 ABG Base Excess ABG Hemoglobin ABG Oxyhemoglobin ABG Sodium ABG Potassium ABG Chloride ABG Glucose Carboxyhemoglobin Sodium Potassium Chloride Carbon Dioxide BUN Creatinine Glucose POC Glucose 163 H Lactic Acid Calcium Ionized Calcium Phosphorus 5.60 H Magnesium AST Alkaline Phosphatase Total Protein Albumin Triglycerides Arterial Blood Glucose Arterial Blood Ionized Calcium Urine WBC (Auto) Urine Creatinine Crossmatch 12/27/20 12/27/20 12/27/20 02:57 04:15 04:15 WBC 28.5 H RBC Hgb 11.2 L Hct MCV MCHC 31 L RDW 16.5 H Plt Count 130 L Lymph % (Auto) Eos % (Auto) Lymph # (Auto) Eos # (Auto) Seg Neutrophils % Seg Neuts % (Manual) Lymphocytes % (Manual) Seg Neutrophils # Seg Neutrophils # Man Lymphocytes # (Manual) Monocytes # (Manual) PT INR APTT Fibrinogen ABG pH 7.238 L POC ABG pCO2 POC ABG pO2 139.1 H ABG pO2 ABG Base Excess ABG Hemoglobin 11.2 L ABG Oxyhemoglobin ABG Sodium 133.8 L ABG Potassium 5.2 H ABG Chloride ABG Glucose 182 H Carboxyhemoglobin Sodium 136 L Potassium 6.0 H Chloride Carbon Dioxide 18 L BUN 68 H Creatinine 4.1 H Glucose 166 H POC Glucose Lactic Acid Calcium 6.2 L Ionized Calcium Phosphorus 7.30 H D Magnesium AST Alkaline Phosphatase Total Protein Albumin Triglycerides 164 H Arterial Blood Glucose 182 H Arterial Blood Ionized Calcium 3.4 L Urine WBC (Auto) Urine Creatinine Crossmatch 12/27/20 12/27/20 12/27/20 04:50 10:51 11:17 WBC RBC Hgb Hct MCV MCHC RDW Plt Count Lymph % (Auto) Eos % (Auto) Lymph # (Auto) Eos # (Auto) Seg Neutrophils % Seg Neuts % (Manual) Lymphocytes % (Manual) Seg Neutrophils # Seg Neutrophils # Man Lymphocytes # (Manual) Monocytes # (Manual) PT INR APTT Fibrinogen ABG pH POC ABG pCO2 POC ABG pO2 ABG pO2 ABG Base Excess ABG Hemoglobin ABG Oxyhemoglobin ABG Sodium ABG Potassium ABG Chloride ABG Glucose Carboxyhemoglobin Sodium Potassium Chloride Carbon Dioxide BUN Creatinine Glucose POC Glucose 140 H 113 H 154 H Lactic Acid Calcium Ionized Calcium Phosphorus Magnesium AST Alkaline Phosphatase Total Protein Albumin Triglycerides Arterial Blood Glucose Arterial Blood Ionized Calcium Urine WBC (Auto) Urine Creatinine Crossmatch 12/27/20 12/27/20 12/27/20 12:40 14:40 23:17 WBC RBC Hgb Hct MCV MCHC RDW Plt Count Lymph % (Auto) Eos % (Auto) Lymph # (Auto) Eos # (Auto) Seg Neutrophils % Seg Neuts % (Manual) Lymphocytes % (Manual) Seg Neutrophils # Seg Neutrophils # Man Lymphocytes # (Manual) Monocytes # (Manual) PT INR APTT Fibrinogen ABG pH POC ABG pCO2 POC ABG pO2 ABG pO2 ABG Base Excess ABG Hemoglobin ABG Oxyhemoglobin ABG Sodium ABG Potassium ABG Chloride ABG Glucose Carboxyhemoglobin Sodium 135 L Potassium Chloride Carbon Dioxide 21 L BUN 62 H Creatinine 3.8 H Glucose 132 H POC Glucose 130 H Lactic Acid Calcium 5.6 L* Ionized Calcium 3.3 L Phosphorus Magnesium AST Alkaline Phosphatase Total Protein Albumin Triglycerides Arterial Blood Glucose Arterial Blood Ionized Calcium Urine WBC (Auto) Urine Creatinine Crossmatch 12/28/20 12/28/20 12/28/20 05:36 07:08 07:28 WBC 27.2 H RBC 3.50 L Hgb 9.6 L Hct 30.8 L MCV MCHC 31 L RDW 16.1 H Plt Count 111 L Lymph % (Auto) Eos % (Auto) Lymph # (Auto) Eos # (Auto) Seg Neutrophils % Seg Neuts % (Manual) 95.0 H Lymphocytes % (Manual) Seg Neutrophils # Seg Neutrophils # Man 25.8 H Lymphocytes # (Manual) 0.0 L Monocytes # (Manual) 1.1 H PT INR APTT Fibrinogen ABG pH 7.200 L POC ABG pCO2 POC ABG pO2 67.2 L ABG pO2 ABG Base Excess ABG Hemoglobin 10.3 L ABG Oxyhemoglobin 89.6 L ABG Sodium 127.8 L ABG Potassium 5.1 H ABG Chloride ABG Glucose 132 H Carboxyhemoglobin 0.4 L Sodium Potassium Chloride Carbon Dioxide BUN Creatinine Glucose POC Glucose 128 H Lactic Acid Calcium Ionized Calcium Phosphorus Magnesium AST Alkaline Phosphatase Total Protein Albumin Triglycerides Arterial Blood Glucose 132 H Arterial Blood Ionized Calcium 3.5 L Urine WBC (Auto) Urine Creatinine Crossmatch 12/28/20 12/28/20 12/28/20 07:28 11:37 13:25 WBC RBC Hgb Hct MCV MCHC RDW Plt Count Lymph % (Auto) Eos % (Auto) Lymph # (Auto) Eos # (Auto) Seg Neutrophils % Seg Neuts % (Manual) Lymphocytes % (Manual) Seg Neutrophils # Seg Neutrophils # Man Lymphocytes # (Manual) Monocytes # (Manual) PT INR APTT Fibrinogen ABG pH POC ABG pCO2 POC ABG pO2 ABG pO2 ABG Base Excess ABG Hemoglobin ABG Oxyhemoglobin ABG Sodium ABG Potassium ABG Chloride ABG Glucose Carboxyhemoglobin Sodium 131 L 133 L Potassium 5.9 H 5.1 H Chloride 97.1 L Carbon Dioxide 15 L 21 L BUN 70 H 77 H Creatinine 4.0 H 4.4 H Glucose 118 H 140 H POC Glucose 135 H Lactic Acid Calcium 6.3 L 6.3 L Ionized Calcium Phosphorus 7.10 H Magnesium AST 144 H Alkaline Phosphatase Total Protein 4.8 L Albumin 1.3 L Triglycerides Arterial Blood Glucose Arterial Blood Ionized Calcium Urine WBC (Auto) Urine Creatinine Crossmatch 12/28/20 12/28/20 12/29/20 16:38 23:28 03:08 WBC RBC Hgb Hct MCV MCHC RDW Plt Count Lymph % (Auto) Eos % (Auto) Lymph # (Auto) Eos # (Auto) Seg Neutrophils % Seg Neuts % (Manual) Lymphocytes % (Manual) Seg Neutrophils # Seg Neutrophils # Man Lymphocytes # (Manual) Monocytes # (Manual) PT INR APTT Fibrinogen ABG pH 7.301 L POC ABG pCO2 POC ABG pO2 151.1 H ABG pO2 ABG Base Excess ABG Hemoglobin 8.7 L ABG Oxyhemoglobin 98.2 H ABG Sodium 123.4 L ABG Potassium ABG Chloride 97.0 L ABG Glucose 144 H Carboxyhemoglobin Sodium Potassium Chloride Carbon Dioxide BUN Creatinine Glucose POC Glucose 140 H 134 H Lactic Acid Calcium Ionized Calcium Phosphorus Magnesium AST Alkaline Phosphatase Total Protein Albumin Triglycerides Arterial Blood Glucose 144 H Arterial Blood Ionized Calcium 3.4 L Urine WBC (Auto) Urine Creatinine Crossmatch 12/29/20 12/29/20 12/29/20 05:20 05:20 06:01 WBC 21.0 H RBC 2.89 L Hgb 8.1 L Hct 25.5 L MCV MCHC RDW 16.1 H Plt Count 124 L Lymph % (Auto) Eos % (Auto) Lymph # (Auto) Eos # (Auto) Seg Neutrophils % Seg Neuts % (Manual) Lymphocytes % (Manual) Seg Neutrophils # Seg Neutrophils # Man Lymphocytes # (Manual) Monocytes # (Manual) PT INR APTT Fibrinogen ABG pH POC ABG pCO2 POC ABG pO2 ABG pO2 ABG Base Excess ABG Hemoglobin ABG Oxyhemoglobin ABG Sodium ABG Potassium ABG Chloride ABG Glucose Carboxyhemoglobin Sodium 131 L Potassium Chloride 93.4 L Carbon Dioxide BUN 79 H Creatinine 4.7 H Glucose 122 H POC Glucose 108 H Lactic Acid Calcium 5.5 L* Ionized Calcium Phosphorus 5.70 H Magnesium 1.60 L AST Alkaline Phosphatase Total Protein Albumin Triglycerides Arterial Blood Glucose Arterial Blood Ionized Calcium Urine WBC (Auto) Urine Creatinine Crossmatch 12/29/20 12/29/20 12/29/20 10:04 11:27 17:31 WBC RBC Hgb Hct MCV MCHC RDW Plt Count Lymph % (Auto) Eos % (Auto) Lymph # (Auto) Eos # (Auto) Seg Neutrophils % Seg Neuts % (Manual) Lymphocytes % (Manual) Seg Neutrophils # Seg Neutrophils # Man Lymphocytes # (Manual) Monocytes # (Manual) PT INR APTT Fibrinogen ABG pH POC ABG pCO2 POC ABG pO2 ABG pO2 ABG Base Excess ABG Hemoglobin ABG Oxyhemoglobin ABG Sodium ABG Potassium ABG Chloride ABG Glucose Carboxyhemoglobin Sodium Potassium Chloride Carbon Dioxide BUN Creatinine Glucose POC Glucose 107 H 112 H 110 H Lactic Acid Calcium Ionized Calcium Phosphorus Magnesium AST Alkaline Phosphatase Total Protein Albumin Triglycerides Arterial Blood Glucose Arterial Blood Ionized Calcium Urine WBC (Auto) Urine Creatinine Crossmatch 12/30/20 12/30/20 12/30/20 03:31 08:06 17:39 WBC RBC Hgb Hct MCV MCHC RDW Plt Count Lymph % (Auto) Eos % (Auto) Lymph # (Auto) Eos # (Auto) Seg Neutrophils % Seg Neuts % (Manual) Lymphocytes % (Manual) Seg Neutrophils # Seg Neutrophils # Man Lymphocytes # (Manual) Monocytes # (Manual) PT INR APTT Fibrinogen ABG pH 7.261 L POC ABG pCO2 POC ABG pO2 123.1 H ABG pO2 ABG Base Excess ABG Hemoglobin 8.7 L ABG Oxyhemoglobin ABG Sodium 123.2 L ABG Potassium ABG Chloride 96.0 L ABG Glucose 112 H Carboxyhemoglobin Sodium 128 L Potassium Chloride 90.7 L Carbon Dioxide 21 L BUN 86 H Creatinine 4.9 H Glucose 107 H POC Glucose 134 H Lactic Acid Calcium 6.2 L Ionized Calcium Phosphorus 5.30 H Magnesium 1.50 L AST Alkaline Phosphatase Total Protein Albumin Triglycerides Arterial Blood Glucose 112 H Arterial Blood Ionized Calcium 3.2 L Urine WBC (Auto) Urine Creatinine Crossmatch 12/30/20 12/31/20 12/31/20 22:45 02:14 04:40 WBC RBC Hgb Hct MCV MCHC RDW Plt Count Lymph % (Auto) Eos % (Auto) Lymph # (Auto) Eos # (Auto) Seg Neutrophils % Seg Neuts % (Manual) Lymphocytes % (Manual) Seg Neutrophils # Seg Neutrophils # Man Lymphocytes # (Manual) Monocytes # (Manual) PT INR APTT Fibrinogen ABG pH 7.267 L POC ABG pCO2 POC ABG pO2 ABG pO2 ABG Base Excess ABG Hemoglobin 8.0 L ABG Oxyhemoglobin 93.7 L ABG Sodium ABG Potassium ABG Chloride 95.0 L ABG Glucose 108 H Carboxyhemoglobin 1.7 H Sodium 126 L Potassium Chloride 90.3 L Carbon Dioxide 20 L BUN 70 H Creatinine 4.3 H Glucose 209 H POC Glucose 109 H Lactic Acid Calcium 6.6 L Ionized Calcium Phosphorus 4.70 H Magnesium 1.60 L AST Alkaline Phosphatase Total Protein Albumin Triglycerides 157 H Arterial Blood Glucose 108 H Arterial Blood Ionized Calcium 3.7 L Urine WBC (Auto) Urine Creatinine Crossmatch 12/31/20 12/31/20 01/01/21 16:23 23:21 04:00 WBC 18.0 H RBC 2.75 L Hgb 7.7 L Hct 23.9 L MCV MCHC RDW 15.6 H Plt Count Lymph % (Auto) Eos % (Auto) Lymph # (Auto) Eos # (Auto) Seg Neutrophils % Seg Neuts % (Manual) 91.0 H Lymphocytes % (Manual) 6.0 L Seg Neutrophils # Seg Neutrophils # Man 16.4 H Lymphocytes # (Manual) 1.1 L Monocytes # (Manual) PT INR APTT Fibrinogen ABG pH 7.264 L POC ABG pCO2 POC ABG pO2 74.8 L ABG pO2 ABG Base Excess ABG Hemoglobin 7.1 L ABG Oxyhemoglobin 92.1 L ABG Sodium 124.9 L ABG Potassium ABG Chloride 95.0 L ABG Glucose 111 H Carboxyhemoglobin 1.7 H Sodium Potassium Chloride Carbon Dioxide BUN Creatinine Glucose POC Glucose 125 H Lactic Acid Calcium Ionized Calcium Phosphorus Magnesium AST Alkaline Phosphatase Total Protein Albumin Triglycerides Arterial Blood Glucose 111 H Arterial Blood Ionized Calcium 4.0 L Urine WBC (Auto) Urine Creatinine Crossmatch 01/01/21 01/01/21 01/01/21 05:50 13:41 15:55 WBC RBC Hgb Hct MCV MCHC RDW Plt Count Lymph % (Auto) Eos % (Auto) Lymph # (Auto) Eos # (Auto) Seg Neutrophils % Seg Neuts % (Manual) Lymphocytes % (Manual) Seg Neutrophils # Seg Neutrophils # Man Lymphocytes # (Manual) Monocytes # (Manual) PT INR APTT Fibrinogen ABG pH 7.148 L 7.207 L POC ABG pCO2 53.1 H POC ABG pO2 57.3 L 138.4 H ABG pO2 ABG Base Excess ABG Hemoglobin 9.0 L 8.3 L ABG Oxyhemoglobin 83.2 L ABG Sodium 126.2 L 124.5 L ABG Potassium ABG Chloride 95.0 L 95.0 L ABG Glucose 96 H 120 H Carboxyhemoglobin Sodium 131 L Potassium Chloride 93.3 L Carbon Dioxide 21 L BUN 67 H Creatinine 4.2 H Glucose POC Glucose Lactic Acid Calcium 7.1 L Ionized Calcium Phosphorus Magnesium AST 60 H Alkaline Phosphatase Total Protein 4.8 L Albumin 1.4 L Triglycerides Arterial Blood Glucose 96 H 120 H Arterial Blood Ionized Calcium 4.1 L 3.9 L Urine WBC (Auto) Urine Creatinine Crossmatch 01/01/21 01/01/21 01/02/21 17:09 23:24 03:47 WBC RBC Hgb Hct MCV MCHC RDW Plt Count Lymph % (Auto) Eos % (Auto) Lymph # (Auto) Eos # (Auto) Seg Neutrophils % Seg Neuts % (Manual) Lymphocytes % (Manual) Seg Neutrophils # Seg Neutrophils # Man Lymphocytes # (Manual) Monocytes # (Manual) PT INR APTT Fibrinogen ABG pH 7.276 L POC ABG pCO2 POC ABG pO2 173.6 H ABG pO2 ABG Base Excess ABG Hemoglobin 7 L ABG Oxyhemoglobin ABG Sodium 122.4 L ABG Potassium ABG Chloride 94.0 L ABG Glucose 118 H Carboxyhemoglobin Sodium Potassium Chloride Carbon Dioxide BUN Creatinine Glucose POC Glucose 124 H 119 H Lactic Acid Calcium Ionized Calcium Phosphorus Magnesium AST Alkaline Phosphatase Total Protein Albumin Triglycerides Arterial Blood Glucose 118 H Arterial Blood Ionized Calcium 4.0 L Urine WBC (Auto) Urine Creatinine Crossmatch 01/02/21 01/02/21 01/02/21 05:33 08:00 08:00 WBC 19.7 H RBC 2.53 L Hgb 7.1 L Hct 22.0 L MCV MCHC RDW 16.4 H Plt Count Lymph % (Auto) Eos % (Auto) Lymph # (Auto) Eos # (Auto) Seg Neutrophils % Seg Neuts % (Manual) Lymphocytes % (Manual) Seg Neutrophils # Seg Neutrophils # Man Lymphocytes # (Manual) Monocytes # (Manual) PT INR APTT Fibrinogen ABG pH POC ABG pCO2 POC ABG pO2 ABG pO2 ABG Base Excess ABG Hemoglobin ABG Oxyhemoglobin ABG Sodium ABG Potassium ABG Chloride ABG Glucose Carboxyhemoglobin Sodium 127 L Potassium Chloride 89.3 L Carbon Dioxide 19 L BUN 82 H Creatinine 5.0 H Glucose 103 H POC Glucose 107 H Lactic Acid Calcium 7.8 L Ionized Calcium Phosphorus 6.40 H Magnesium AST 47 H Alkaline Phosphatase Total Protein 5.0 L Albumin 1.6 L Triglycerides Arterial Blood Glucose Arterial Blood Ionized Calcium Urine WBC (Auto) Urine Creatinine Crossmatch 01/02/21 01/03/21 01/03/21 17:25 07:56 09:47 WBC 17.7 H RBC 2.19 L Hgb 6.2 L Hct 18.5 L* MCV MCHC RDW 16.1 H Plt Count Lymph % (Auto) Eos % (Auto) Lymph # (Auto) Eos # (Auto) Seg Neutrophils % Seg Neuts % (Manual) Lymphocytes % (Manual) Seg Neutrophils # Seg Neutrophils # Man Lymphocytes # (Manual) Monocytes # (Manual) PT INR APTT Fibrinogen ABG pH POC ABG pCO2 POC ABG pO2 ABG pO2 ABG Base Excess ABG Hemoglobin ABG Oxyhemoglobin ABG Sodium ABG Potassium ABG Chloride ABG Glucose Carboxyhemoglobin Sodium 130 L Potassium 3.5 L Chloride 90.3 L Carbon Dioxide BUN 68 H Creatinine 3.9 H Glucose 103 H POC Glucose 116 H Lactic Acid Calcium 8.0 L Ionized Calcium Phosphorus 4.80 H D Magnesium AST Alkaline Phosphatase Total Protein Albumin Triglycerides Arterial Blood Glucose Arterial Blood Ionized Calcium Urine WBC (Auto) Urine Creatinine Crossmatch 01/03/21 01/03/21 01/04/21 11:00 19:00 03:12 WBC 17.0 H RBC 2.51 L Hgb 7.1 L Hct 21.5 L MCV MCHC RDW 16.6 H Plt Count Lymph % (Auto) Eos % (Auto) Lymph # (Auto) Eos # (Auto) Seg Neutrophils % Seg Neuts % (Manual) Lymphocytes % (Manual) Seg Neutrophils # Seg Neutrophils # Man Lymphocytes # (Manual) Monocytes # (Manual) PT INR APTT Fibrinogen ABG pH 7.463 H POC ABG pCO2 POC ABG pO2 72.2 L ABG pO2 ABG Base Excess ABG Hemoglobin 6.2 L ABG Oxyhemoglobin 91.8 L ABG Sodium 128.4 L ABG Potassium 3.3 L ABG Chloride 96.0 L ABG Glucose 112 H Carboxyhemoglobin Sodium Potassium Chloride Carbon Dioxide BUN Creatinine Glucose POC Glucose Lactic Acid Calcium Ionized Calcium Phosphorus Magnesium AST Alkaline Phosphatase Total Protein Albumin Triglycerides Arterial Blood Glucose 112 H Arterial Blood Ionized Calcium 4.3 L Urine WBC (Auto) Urine Creatinine Crossmatch See Detail 0601/04/21 01/04/21 05:16 06:20 06:20 WBC 18.5 H RBC 2.53 L Hgb 7.4 L Hct 21.9 L MCV MCHC RDW 15.8 H Plt Count Lymph % (Auto) Eos % (Auto) Lymph # (Auto) Eos # (Auto) Seg Neutrophils % Seg Neuts % (Manual) Lymphocytes % (Manual) Seg Neutrophils # Seg Neutrophils # Man Lymphocytes # (Manual) Monocytes # (Manual) PT INR APTT Fibrinogen ABG pH POC ABG pCO2 POC ABG pO2 ABG pO2 ABG Base Excess ABG Hemoglobin ABG Oxyhemoglobin ABG Sodium ABG Potassium ABG Chloride ABG Glucose Carboxyhemoglobin Sodium 135 L Potassium Chloride 95.2 L Carbon Dioxide BUN 56 H Creatinine 3.2 H Glucose 109 H POC Glucose 123 H Lactic Acid Calcium 7.6 L Ionized Calcium Phosphorus Magnesium AST Alkaline Phosphatase Total Protein Albumin Triglycerides Arterial Blood Glucose Arterial Blood Ionized Calcium Urine WBC (Auto) Urine Creatinine Crossmatch 01/05/21 01/05/21 01/05/21 03:50 07:22 07:22 WBC 23.8 H RBC 2.93 L Hgb 8.2 L Hct 25.1 L MCV MCHC RDW 16.5 H Plt Count Lymph % (Auto) Eos % (Auto) Lymph # (Auto) Eos # (Auto) Seg Neutrophils % Seg Neuts % (Manual) Lymphocytes % (Manual) Seg Neutrophils # Seg Neutrophils # Man Lymphocytes # (Manual) Monocytes # (Manual) PT INR APTT Fibrinogen ABG pH POC ABG pCO2 POC ABG pO2 ABG pO2 136.8 H ABG Base Excess -2.3 L ABG Hemoglobin 6.9 L ABG Oxyhemoglobin ABG Sodium ABG Potassium ABG Chloride ABG Glucose Carboxyhemoglobin Sodium 134 L Potassium Chloride 93.3 L Carbon Dioxide BUN 77 H Creatinine 4.2 H Glucose 105 H POC Glucose Lactic Acid Calcium Ionized Calcium Phosphorus 4.90 H D Magnesium AST Alkaline Phosphatase Total Protein Albumin Triglycerides Arterial Blood Glucose Arterial Blood Ionized Calcium Urine WBC (Auto) Urine Creatinine Crossmatch 01/05/21 01/05/21 01/05/21 11:02 14:06 15:37 WBC RBC Hgb Hct MCV MCHC RDW Plt Count Lymph % (Auto) Eos % (Auto) Lymph # (Auto) Eos # (Auto) Seg Neutrophils % Seg Neuts % (Manual) Lymphocytes % (Manual) Seg Neutrophils # Seg Neutrophils # Man Lymphocytes # (Manual) Monocytes # (Manual) PT INR APTT Fibrinogen ABG pH POC ABG pCO2 POC ABG pO2 332.3 H ABG pO2 ABG Base Excess ABG Hemoglobin 7.7 L ABG Oxyhemoglobin 98.7 H ABG Sodium 131.0 L ABG Potassium 3.3 L ABG Chloride 97.0 L ABG Glucose 118 H Carboxyhemoglobin Sodium Potassium Chloride Carbon Dioxide BUN Creatinine Glucose POC Glucose 118 H 111 H Lactic Acid Calcium Ionized Calcium Phosphorus Magnesium AST Alkaline Phosphatase Total Protein Albumin Triglycerides Arterial Blood Glucose 118 H Arterial Blood Ionized Calcium 4.4 L Urine WBC (Auto) Urine Creatinine Crossmatch 01/05/21 01/06/21 01/06/21 23:18 04:00 04:20 WBC RBC Hgb Hct MCV MCHC RDW Plt Count Lymph % (Auto) Eos % (Auto) Lymph # (Auto) Eos # (Auto) Seg Neutrophils % Seg Neuts % (Manual) Lymphocytes % (Manual) Seg Neutrophils # Seg Neutrophils # Man Lymphocytes # (Manual) Monocytes # (Manual) PT INR APTT Fibrinogen ABG pH POC ABG pCO2 POC ABG pO2 230.5 H ABG pO2 ABG Base Excess ABG Hemoglobin 7.9 L ABG Oxyhemoglobin 98.5 H ABG Sodium 129.4 L ABG Potassium ABG Chloride 97.0 L ABG Glucose 117 H Carboxyhemoglobin Sodium 133 L Potassium Chloride 94.4 L Carbon Dioxide BUN 62 H Creatinine 3.6 H Glucose 110 H POC Glucose 110 H Lactic Acid Calcium 7.8 L Ionized Calcium Phosphorus Magnesium AST Alkaline Phosphatase Total Protein Albumin Triglycerides Arterial Blood Glucose 117 H Arterial Blood Ionized Calcium 4.5 L Urine WBC (Auto) Urine Creatinine Crossmatch 01/06/21 01/06/21 01/06/21 05:28 09:00 11:00 WBC 15.2 H RBC 2.18 L Hgb 6.5 L Hct 21.8 L MCV 100 H MCHC 30 L RDW 18.5 H Plt Count Lymph % (Auto) Eos % (Auto) Lymph # (Auto) Eos # (Auto) Seg Neutrophils % Seg Neuts % (Manual) Lymphocytes % (Manual) Seg Neutrophils # Seg Neutrophils # Man Lymphocytes # (Manual) Monocytes # (Manual) PT INR APTT Fibrinogen ABG pH POC ABG pCO2 POC ABG pO2 ABG pO2 ABG Base Excess ABG Hemoglobin ABG Oxyhemoglobin ABG Sodium ABG Potassium ABG Chloride ABG Glucose Carboxyhemoglobin Sodium Potassium Chloride Carbon Dioxide BUN Creatinine Glucose POC Glucose 109 H Lactic Acid Calcium Ionized Calcium Phosphorus Magnesium AST Alkaline Phosphatase Total Protein Albumin Triglycerides Arterial Blood Glucose Arterial Blood Ionized Calcium Urine WBC (Auto) Urine Creatinine Crossmatch See Detail 01/06/21 01/06/21 01/07/21 11:32 23:44 03:10 WBC 15.3 H RBC 2.30 L Hgb 6.7 L Hct 20.1 L MCV MCHC RDW 16.6 H Plt Count Lymph % (Auto) Eos % (Auto) Lymph # (Auto) Eos # (Auto) Seg Neutrophils % Seg Neuts % (Manual) Lymphocytes % (Manual) Seg Neutrophils # Seg Neutrophils # Man Lymphocytes # (Manual) Monocytes # (Manual) PT INR APTT Fibrinogen ABG pH POC ABG pCO2 POC ABG pO2 ABG pO2 ABG Base Excess ABG Hemoglobin ABG Oxyhemoglobin ABG Sodium ABG Potassium ABG Chloride ABG Glucose Carboxyhemoglobin Sodium Potassium Chloride Carbon Dioxide BUN Creatinine Glucose POC Glucose 113 H 118 H Lactic Acid Calcium Ionized Calcium Phosphorus Magnesium AST Alkaline Phosphatase Total Protein Albumin Triglycerides Arterial Blood Glucose Arterial Blood Ionized Calcium Urine WBC (Auto) Urine Creatinine Crossmatch 01/07/21 01/07/21 01/07/21 03:10 04:17 05:06 WBC RBC Hgb Hct MCV MCHC RDW Plt Count Lymph % (Auto) Eos % (Auto) Lymph # (Auto) Eos # (Auto) Seg Neutrophils % Seg Neuts % (Manual) Lymphocytes % (Manual) Seg Neutrophils # Seg Neutrophils # Man Lymphocytes # (Manual) Monocytes # (Manual) PT INR APTT Fibrinogen ABG pH 7.272 L POC ABG pCO2 50.1 H POC ABG pO2 ABG pO2 ABG Base Excess ABG Hemoglobin 8.4 L ABG Oxyhemoglobin ABG Sodium 128.6 L ABG Potassium ABG Chloride 95.0 L ABG Glucose 109 H Carboxyhemoglobin Sodium 133 L Potassium Chloride 93.6 L Carbon Dioxide BUN 85 H Creatinine 3.9 H Glucose 112 H POC Glucose 106 H Lactic Acid Calcium Ionized Calcium Phosphorus 4.70 H D Magnesium AST Alkaline Phosphatase Total Protein Albumin Triglycerides Arterial Blood Glucose 109 H Arterial Blood Ionized Calcium Urine WBC (Auto) Urine Creatinine Crossmatch 01/07/21 01/07/2101/07/21 14:05 16:00 23:25 WBC RBC Hgb 8.1 L Hct 24.2 L MCV MCHC RDW Plt Count Lymph % (Auto) Eos % (Auto) Lymph # (Auto) Eos # (Auto) Seg Neutrophils % Seg Neuts % (Manual) Lymphocytes % (Manual) Seg Neutrophils # Seg Neutrophils # Man Lymphocytes # (Manual) Monocytes # (Manual) PT INR APTT Fibrinogen ABG pH POC ABG pCO2 POC ABG pO2 ABG pO2 ABG Base Excess ABG Hemoglobin 7.2 L ABG Oxyhemoglobin ABG Sodium 127.3 L ABG Potassium ABG Chloride 96.0 L ABG Glucose 98 H Carboxyhemoglobin Sodium Potassium Chloride Carbon Dioxide BUN Creatinine Glucose POC Glucose 106 H Lactic Acid Calcium Ionized Calcium Phosphorus Magnesium AST Alkaline Phosphatase Total Protein Albumin Triglycerides Arterial Blood Glucose 98 H Arterial Blood Ionized Calcium Urine WBC (Auto) Urine Creatinine Crossmatch 01/08/21 01/08/21 01/08/21 03:22 05:30 23:22 WBC RBC Hgb Hct MCV MCHC RDW Plt Count Lymph % (Auto) Eos % (Auto) Lymph # (Auto) Eos # (Auto) Seg Neutrophils % Seg Neuts % (Manual) Lymphocytes % (Manual) Seg Neutrophils # Seg Neutrophils # Man Lymphocytes # (Manual) Monocytes # (Manual) PT INR APTT Fibrinogen ABG pH POC ABG pCO2 POC ABG pO2 71.3 L ABG pO2 ABG Base Excess ABG Hemoglobin 8.7 L ABG Oxyhemoglobin 92.2 L ABG Sodium 125.9 L ABG Potassium ABG Chloride 96.0 L ABG Glucose 124 H Carboxyhemoglobin Sodium Potassium Chloride Carbon Dioxide BUN Creatinine Glucose POC Glucose 118 H 110 H Lactic Acid Calcium Ionized Calcium Phosphorus Magnesium AST Alkaline Phosphatase Total Protein Albumin Triglycerides Arterial Blood Glucose 124 H Arterial Blood Ionized Calcium Urine WBC (Auto) Urine Creatinine Crossmatch 01/08/21 01/08/21 01/09/21 Unknown Unknown 08:45 WBC 15.2 H RBC 2.62 L Hgb 7.6 L Hct 22.7 L MCV MCHC RDW 16.7 H Plt Count Lymph % (Auto) Eos % (Auto) Lymph # (Auto) Eos # (Auto) Seg Neutrophils % Seg Neuts % (Manual) 95.0 H Lymphocytes % (Manual) 3.0 L Seg Neutrophils # Seg Neutrophils # Man 14.4 H Lymphocytes # (Manual) 0.5 L Monocytes # (Manual) PT INR APTT Fibrinogen ABG pH POC ABG pCO2 POC ABG pO2 ABG pO2 ABG Base Excess ABG Hemoglobin ABG Oxyhemoglobin ABG Sodium ABG Potassium ABG Chloride ABG Glucose Carboxyhemoglobin Sodium 129 L 129 L Potassium Chloride 91.2 L 92.7 L Carbon Dioxide 21 L 19 L BUN 91 H 105 H Creatinine 4.0 H 4.4 H Glucose 115 H 107 H POC Glucose Lactic Acid Calcium Ionized Calcium Phosphorus 5.00 H Magnesium AST Alkaline Phosphatase Total Protein 5.3 L Albumin 1.6 L Triglycerides 166 H Arterial Blood Glucose Arterial Blood Ionized Calcium Urine WBC (Auto) Urine Creatinine Crossmatch 01/09/21 01/09/21 01/10/21 10:10 23:51 04:00 WBC 14.1 H RBC 2.50 L Hgb 7.2 L Hct 21.6 L MCV MCHC RDW 16.5 H Plt Count Lymph % (Auto) Eos % (Auto) Lymph # (Auto) Eos # (Auto) Seg Neutrophils % Seg Neuts % (Manual) 92.0 H Lymphocytes % (Manual) 2.0 L Seg Neutrophils # Seg Neutrophils # Man 13.0 H Lymphocytes # (Manual) 0.3 L Monocytes # (Manual) PT INR APTT Fibrinogen ABG pH 7.273 L POC ABG pCO2 POC ABG pO2 ABG pO2 ABG Base Excess ABG Hemoglobin 8.7 L ABG Oxyhemoglobin ABG Sodium 126.2 L ABG Potassium 4.8 H ABG Chloride 96.0 L ABG Glucose 160 H Carboxyhemoglobin Sodium Potassium Chloride Carbon Dioxide BUN Creatinine Glucose POC Glucose 154 H Lactic Acid Calcium Ionized Calcium Phosphorus Magnesium AST Alkaline Phosphatase Total Protein Albumin Triglycerides Arterial Blood Glucose 160 H Arterial Blood Ionized Calcium Urine WBC (Auto) Urine Creatinine Crossmatch 01/10/21 01/10/21 01/10/21 04:01 04:01 04:01 WBC 12.6 H RBC 2.89 L Hgb 8.1 L Hct 24.9 L MCV MCHC RDW 16.6 H Plt Count Lymph % (Auto) Eos % (Auto) Lymph # (Auto) Eos # (Auto) Seg Neutrophils % Seg Neuts % (Manual) 95.0 H Lymphocytes % (Manual) 3.0 L Seg Neutrophils # Seg Neutrophils # Man 12.0 H Lymphocytes # (Manual) 0.4 L Monocytes # (Manual) PT 15.4 H INR 1.17 H APTT 40.2 H Fibrinogen 817 H ABG pH POC ABG pCO2 POC ABG pO2 ABG pO2 ABG Base Excess ABG Hemoglobin ABG Oxyhemoglobin ABG Sodium ABG Potassium ABG Chloride ABG Glucose Carboxyhemoglobin Sodium 128 L Potassium Chloride 90.4 L Carbon Dioxide 19 L BUN 113 H Creatinine 4.5 H Glucose 162 H POC Glucose Lactic Acid Calcium Ionized Calcium Phosphorus 5.70 H Magnesium AST Alkaline Phosphatase Total Protein 6.2 L Albumin 2.1 L Triglycerides Arterial Blood Glucose Arterial Blood Ionized Calcium Urine WBC (Auto) Urine Creatinine Crossmatch 01/10/21 01/10/21 01/11/21 05:31 11:45 04:00 WBC RBC Hgb Hct MCV MCHC RDW Plt Count Lymph % (Auto) Eos % (Auto) Lymph # (Auto) Eos # (Auto) Seg Neutrophils % Seg Neuts % (Manual) Lymphocytes % (Manual) Seg Neutrophils # Seg Neutrophils # Man Lymphocytes # (Manual) Monocytes # (Manual) PT INR APTT Fibrinogen ABG pH 7.311 L POC ABG pCO2 49.2 H POC ABG pO2 ABG pO2 ABG Base Excess ABG Hemoglobin 9.4 L ABG Oxyhemoglobin ABG Sodium 130.3 L ABG Potassium ABG Chloride 96.0 L ABG Glucose 104 H Carboxyhemoglobin Sodium Potassium Chloride Carbon Dioxide BUN Creatinine Glucose POC Glucose 150 H 145 H Lactic Acid Calcium Ionized Calcium Phosphorus Magnesium AST Alkaline Phosphatase Total Protein Albumin Triglycerides Arterial Blood Glucose 104 H Arterial Blood Ionized Calcium Urine WBC (Auto) Urine Creatinine Crossmatch 01/11/21 01/11/21 01/12/21 04:45 17:29 05:51 WBC RBC Hgb Hct MCV MCHC RDW Plt Count Lymph % (Auto) Eos % (Auto) Lymph # (Auto) Eos # (Auto) Seg Neutrophils % Seg Neuts % (Manual) Lymphocytes % (Manual) Seg Neutrophils # Seg Neutrophils # Man Lymphocytes # (Manual) Monocytes # (Manual) PT INR APTT Fibrinogen ABG pH POC ABG pCO2 POC ABG pO2 ABG pO2 ABG Base Excess ABG Hemoglobin ABG Oxyhemoglobin ABG Sodium ABG Potassium ABG Chloride ABG Glucose Carboxyhemoglobin Sodium 134 L Potassium 3.5 L D Chloride 95.5 L Carbon Dioxide BUN 88 H Creatinine 3.5 H Glucose 103 H POC Glucose 109 H 114 H Lactic Acid Calcium Ionized Calcium Phosphorus Magnesium AST Alkaline Phosphatase Total Protein Albumin Triglycerides Arterial Blood Glucose Arterial Blood Ionized Calcium Urine WBC (Auto) Urine Creatinine Crossmatch 01/12/21 01/12/21 01/12/21 10:00 10:00 11:56 WBC RBC Hgb Hct MCV MCHC RDW Plt Count Lymph % (Auto) Eos % (Auto) Lymph # (Auto) Eos # (Auto) Seg Neutrophils % Seg Neuts % (Manual) Lymphocytes % (Manual) Seg Neutrophils # Seg Neutrophils # Man Lymphocytes # (Manual) Monocytes # (Manual) PT INR APTT Fibrinogen ABG pH POC ABG pCO2 POC ABG pO2 ABG pO2 ABG Base Excess ABG Hemoglobin ABG Oxyhemoglobin ABG Sodium ABG Potassium ABG Chloride ABG Glucose Carboxyhemoglobin Sodium 136 L Potassium Chloride 95.2 L Carbon Dioxide BUN 102 H Creatinine 3.6 H Glucose 106 H POC Glucose 113 H Lactic Acid Calcium Ionized Calcium Phosphorus 4.90 H Magnesium AST Alkaline Phosphatase Total Protein Albumin Triglycerides 153 H Arterial Blood Glucose Arterial Blood Ionized Calcium Urine WBC (Auto) Urine Creatinine Crossmatch 01/12/21 01/12/21 01/13/21 17:43 23:31 03:14 WBC RBC Hgb Hct MCV MCHC RDW Plt Count Lymph % (Auto) Eos % (Auto) Lymph # (Auto) Eos # (Auto) Seg Neutrophils % Seg Neuts % (Manual) Lymphocytes % (Manual) Seg Neutrophils # Seg Neutrophils # Man Lymphocytes # (Manual) Monocytes # (Manual) PT INR APTT Fibrinogen ABG pH 7.484 H POC ABG pCO2 POC ABG pO2 ABG pO2 ABG Base Excess ABG Hemoglobin 8.4 L ABG Oxyhemoglobin ABG Sodium 134.4 L ABG Potassium 3.1 L ABG Chloride ABG Glucose 117 H Carboxyhemoglobin Sodium Potassium Chloride Carbon Dioxide BUN Creatinine Glucose POC Glucose 113 H 108 H Lactic Acid Calcium Ionized Calcium Phosphorus Magnesium AST Alkaline Phosphatase Total Protein Albumin Triglycerides Arterial Blood Glucose 117 H Arterial Blood Ionized Calcium 4.5 L Urine WBC (Auto) Urine Creatinine Crossmatch 01/13/21 01/13/21 01/13/21 04:56 05:00 05:00 WBC RBC 2.87 L Hgb 8.0 L Hct 24.4 L MCV MCHC RDW 17.2 H Plt Count Lymph % (Auto) Eos % (Auto) Lymph # (Auto) Eos # (Auto) Seg Neutrophils % Seg Neuts % (Manual) Lymphocytes % (Manual) Seg Neutrophils # Seg Neutrophils # Man Lymphocytes # (Manual) Monocytes # (Manual) PT INR APTT Fibrinogen ABG pH POC ABG pCO2 POC ABG pO2 ABG pO2 ABG Base Excess ABG Hemoglobin ABG Oxyhemoglobin ABG Sodium ABG Potassium ABG Chloride ABG Glucose Carboxyhemoglobin Sodium Potassium 3.0 L Chloride 97.6 L Carbon Dioxide BUN 69 H Creatinine 2.9 H Glucose 114 H POC Glucose 110 H Lactic Acid Calcium 8.0 L Ionized Calcium Phosphorus Magnesium AST Alkaline Phosphatase Total Protein Albumin Triglycerides Arterial Blood Glucose Arterial Blood Ionized Calcium Urine WBC (Auto) Urine Creatinine Crossmatch 01/13/21 01/14/21 01/14/21 12:09 05:00 05:00 WBC 12.4 H RBC 2.72 L Hgb 7.7 L Hct 23.3 L MCV MCHC RDW 17.3 H Plt Count Lymph % (Auto) 6.5 L Eos % (Auto) 7.7 H Lymph # (Auto) 0.8 L Eos # (Auto) 1.0 H Seg Neutrophils % 82.7 H Seg Neuts % (Manual) Lymphocytes % (Manual) Seg Neutrophils # 10.2 H Seg Neutrophils # Man Lymphocytes # (Manual) Monocytes # (Manual) PT INR APTT Fibrinogen ABG pH POC ABG pCO2 POC ABG pO2 ABG pO2 ABG Base Excess ABG Hemoglobin ABG Oxyhemoglobin ABG Sodium ABG Potassium ABG Chloride ABG Glucose Carboxyhemoglobin Sodium Potassium 3.2 L Chloride Carbon Dioxide BUN 79 H Creatinine 3.1 H Glucose POC Glucose 111 H Lactic Acid Calcium Ionized Calcium Phosphorus Magnesium AST Alkaline Phosphatase Total Protein Albumin Triglycerides Arterial Blood Glucose Arterial Blood Ionized Calcium Urine WBC (Auto) Urine Creatinine Crossmatch 01/16/21 01/16/21 01/16/21 04:30 04:30 16:00 WBC RBC 2.62 L Hgb 7.6 L Hct 22.6 L MCV MCHC RDW 17.3 H Plt Count Lymph % (Auto) Eos % (Auto) Lymph # (Auto) Eos # (Auto) Seg Neutrophils % Seg Neuts % (Manual) Lymphocytes % (Manual) Seg Neutrophils # Seg Neutrophils # Man Lymphocytes # (Manual) Monocytes # (Manual) PT INR APTT Fibrinogen ABG pH POC ABG pCO2 POC ABG pO2 ABG pO2 ABG Base Excess ABG Hemoglobin ABG Oxyhemoglobin ABG Sodium ABG Potassium ABG Chloride ABG Glucose Carboxyhemoglobin Sodium 146 H Potassium 2.9 L* 3.0 L Chloride Carbon Dioxide BUN 58 H Creatinine 2.4 H Glucose 101 H POC Glucose Lactic Acid Calcium Ionized Calcium Phosphorus Magnesium AST Alkaline Phosphatase Total Protein Albumin 2.1 L Triglycerides Arterial Blood Glucose Arterial Blood Ionized Calcium Urine WBC (Auto) Urine Creatinine Crossmatch 01/16/21 01/17/21 01/17/21 Unknown 04:30 04:30 WBC RBC 2.80 L Hgb 7.9 L Hct 24.1 L MCV MCHC RDW 17.1 H Plt Count Lymph % (Auto) Eos % (Auto) Lymph # (Auto) Eos # (Auto) Seg Neutrophils % Seg Neuts % (Manual) Lymphocytes % (Manual) Seg Neutrophils # Seg Neutrophils # Man Lymphocytes # (Manual) Monocytes # (Manual) PT INR APTT Fibrinogen ABG pH POC ABG pCO2 POC ABG pO2 ABG pO2 ABG Base Excess ABG Hemoglobin ABG Oxyhemoglobin ABG Sodium ABG Potassium ABG Chloride ABG Glucose Carboxyhemoglobin Sodium 151 H Potassium 2.8 L* Chloride 108.0 H Carbon Dioxide BUN 58 H Creatinine 2.2 H Glucose 103 H POC Glucose Lactic Acid Calcium 8.0 L Ionized Calcium Phosphorus Magnesium 1.40 L AST Alkaline Phosphatase Total Protein Albumin Triglycerides 216 H Arterial Blood Glucose Arterial Blood Ionized Calcium Urine WBC (Auto) > 182.0 H Urine Creatinine Crossmatch 01/17/21 01/17/21 01/18/21 11:24 23:00 04:15 WBC RBC Hgb Hct MCV MCHC RDW Plt Count Lymph % (Auto) Eos % (Auto) Lymph # (Auto) Eos # (Auto) Seg Neutrophils % Seg Neuts % (Manual) Lymphocytes % (Manual) Seg Neutrophils # Seg Neutrophils # Man Lymphocytes # (Manual) Monocytes # (Manual) PT INR APTT Fibrinogen ABG pH POC ABG pCO2 POC ABG pO2 ABG pO2 ABG Base Excess ABG Hemoglobin ABG Oxyhemoglobin ABG Sodium ABG Potassium ABG Chloride ABG Glucose Carboxyhemoglobin Sodium 153 H Potassium 3.3 L 3.3 L Chloride 113.1 H Carbon Dioxide BUN 55 H Creatinine 1.9 H Glucose POC Glucose 110 H Lactic Acid Calcium 7.4 L Ionized Calcium Phosphorus Magnesium AST Alkaline Phosphatase Total Protein Albumin Triglycerides Arterial Blood Glucose Arterial Blood Ionized Calcium Urine WBC (Auto) Urine Creatinine Crossmatch 01/18/21 01/18/21 01/19/21 10:37 21:00 05:00 WBC RBC 2.64 L Hgb 7.8 L Hct 22.7 L MCV MCHC RDW 16.8 H Plt Count Lymph % (Auto) Eos % (Auto) Lymph # (Auto) Eos # (Auto) Seg Neutrophils % Seg Neuts % (Manual) Lymphocytes % (Manual) Seg Neutrophils # Seg Neutrophils # Man Lymphocytes # (Manual) Monocytes # (Manual) PT INR APTT Fibrinogen ABG pH 7.512 H POC ABG pCO2 POC ABG pO2 47.8 L ABG pO2 ABG Base Excess ABG Hemoglobin 8.9 L ABG Oxyhemoglobin 83.3 L ABG Sodium 151.5 H ABG Potassium 2.9 L ABG Chloride 117.0 H ABG Glucose 111 H Carboxyhemoglobin Sodium Potassium 3.4 L Chloride Carbon Dioxide BUN Creatinine Glucose POC Glucose Lactic Acid Calcium Ionized Calcium Phosphorus Magnesium AST Alkaline Phosphatase Total Protein Albumin Triglycerides Arterial Blood Glucose 111 H Arterial Blood Ionized Calcium 4.3 L Urine WBC (Auto) Urine Creatinine Crossmatch 01/19/21 01/19/21 01/20/21 07:39 07:39 07:25 WBC RBC 2.82 L Hgb 8.2 L Hct 24.6 L MCV MCHC RDW 16.8 H Plt Count Lymph % (Auto) Eos % (Auto) Lymph # (Auto) Eos # (Auto) Seg Neutrophils % Seg Neuts % (Manual) Lymphocytes % (Manual) Seg Neutrophils # Seg Neutrophils # Man Lymphocytes # (Manual) Monocytes # (Manual) PT INR APTT Fibrinogen ABG pH POC ABG pCO2 POC ABG pO2 ABG pO2 ABG Base Excess ABG Hemoglobin ABG Oxyhemoglobin ABG Sodium ABG Potassium ABG Chloride ABG Glucose Carboxyhemoglobin Sodium 156 H Potassium 3.2 L Chloride 115.4 H Carbon Dioxide BUN 50 H Creatinine 1.6 H Glucose 108 H POC Glucose Lactic Acid Calcium 8.1 L Ionized Calcium Phosphorus Magnesium 1.50 L AST Alkaline Phosphatase Total Protein Albumin Triglycerides Arterial Blood Glucose Arterial Blood Ionized Calcium Urine WBC (Auto) 30.0 H Urine Creatinine Crossmatch 01/20/21 01/20/21 01/20/21 07:25 07:25 23:20 WBC RBC 2.94 L Hgb 8.4 L Hct 25.9 L MCV MCHC RDW 17.2 H Plt Count Lymph % (Auto) Eos % (Auto) Lymph # (Auto) Eos # (Auto) Seg Neutrophils % Seg Neuts % (Manual) Lymphocytes % (Manual) Seg Neutrophils # Seg Neutrophils # Man Lymphocytes # (Manual) Monocytes # (Manual) PT INR APTT Fibrinogen ABG pH POC ABG pCO2 POC ABG pO2 ABG pO2 ABG Base Excess ABG Hemoglobin ABG Oxyhemoglobin ABG Sodium ABG Potassium ABG Chloride ABG Glucose Carboxyhemoglobin Sodium 149 H Potassium Chloride 113.8 H Carbon Dioxide BUN 44 H Creatinine Glucose 108 H POC Glucose 106 H Lactic Acid Calcium Ionized Calcium Phosphorus Magnesium AST Alkaline Phosphatase Total Protein Albumin Triglycerides Arterial Blood Glucose Arterial Blood Ionized Calcium Urine WBC (Auto) Urine Creatinine Crossmatch 01/21/21 08:20 WBC RBC Hgb Hct MCV MCHC RDW Plt Count Lymph % (Auto) Eos % (Auto) Lymph # (Auto) Eos # (Auto) Seg Neutrophils % Seg Neuts % (Manual) Lymphocytes % (Manual) Seg Neutrophils # Seg Neutrophils # Man Lymphocytes # (Manual) Monocytes # (Manual) PT INR APTT Fibrinogen ABG pH POC ABG pCO2 POC ABG pO2 ABG pO2 ABG Base Excess ABG Hemoglobin ABG Oxyhemoglobin ABG Sodium ABG Potassium ABG Chloride ABG Glucose Carboxyhemoglobin Sodium 153 H Potassium Chloride 118.2 H Carbon Dioxide BUN 47 H Creatinine Glucose 105 H POC Glucose Lactic Acid Calcium 8.3 L Ionized Calcium Phosphorus Magnesium AST Alkaline Phosphatase Total Protein Albumin Triglycerides Arterial Blood Glucose Arterial Blood Ionized Calcium Urine WBC (Auto) Urine Creatinine Crossmatch
--- NOTE | 2021-01-21 11:26 | Progress Note ---
Assessment and Plan Impression * Nonoliguric acute kidney injury secondary to ATN --HD initiated December 30 * Incarcerated hernia with ischemic bowel. Status post bowel resection * Hypernatremia, * Fluid overload * Sepsis * Respiratory failure, intubated * Hyperkalemia * Metabolic Acidosis, Gap * Hypoalbuminemia * Anemia * Bacteremia Recommendations * Patient with good UOP. Patient seems to be in diuretic phase of ATN. * Serum creatinine is also trending down. Shall continue to hold dialysis for now. * Do not anticipate need for additional dialysis treatment. Patient is bacteremic. His Vas-Cath has been removed * Would recommend maintaining Lawrence catheter for now * Transfuse for Hb < 7 * TPN per nutrition/primary * Pressors prn to maintain MAP greater than 65 * Avoid nephrotoxins * Monitor fluid status and electrolytes * Replace potassium * Hypernatremia is is getting worse again. She will resume IV fluid at a lower rate. * Continue free water through feeding tube as well * Plans for transfer to LTAC noted Subjective Date of service: 01/21/21 Principal diagnosis: SBO and necrosis of large part of small intestine Interval history: Patient remains in the ICU. Currently on 30% FiO2. Oxygen saturation 99%. Lawrence catheter in place Objective - Vital Signs Vital signs: Vital Signs - 12hr 01/20/21 01/20/21 01/20/21 23:30 23:34 23:45 Temperature 100.4 F H Pulse Rate 88 88 Pulse Rate [ From Monitor] Respiratory 26 H 29 H Rate Blood Pressure 91/65 92/61 O2 Sat by Pulse 100 100 Oximetry 01/21/21 01/21/21 01/21/21 00:00 00:07 00:15 Temperature Pulse Rate 88 87 87 Pulse Rate [ 88 From Monitor] Respiratory 25 H 28 H Rate Blood Pressure 108/73 108/73 90/61 O2 Sat by Pulse 100 100 100 Oximetry 01/21/21 01/21/21 01/21/21 00:30 00:45 01:00 Temperature Pulse Rate 86 86 91 H Pulse Rate [ From Monitor] Respiratory 26 H 27 H 26 H Rate Blood Pressure 94/66 97/67 102/66 O2 Sat by Pulse 100 100 100 Oximetry 01/21/21 01/21/21 01/21/21 01:15 01:30 01:45 Temperature Pulse Rate 84 91 H 96 H Pulse Rate [ From Monitor] Respiratory 25 H 18 26 H Rate Blood Pressure 93/62 113/56 120/77 O2 Sat by Pulse 100 100 91 Oximetry 01/21/21 01/21/21 01/21/21 02:00 02:15 02:30 Temperature Pulse Rate 97 H 97 H 99 H Pulse Rate [ From Monitor] Respiratory 26 H 23 20 Rate Blood Pressure 127/78 108/82 109/79 O2 Sat by Pulse 100 100 100 Oximetry 01/21/21 01/21/21 01/21/21 02:45 03:00 03:15 Temperature Pulse Rate 99 H 102 H 101 H Pulse Rate [ From Monitor] Respiratory 17 13 23 Rate Blood Pressure 109/79 116/86 117/71 O2 Sat by Pulse 99 99 99 Oximetry 01/21/21 01/21/21 01/21/21 03:31 03:32 03:45 Temperature Pulse Rate 106 H 101 H 100 H Pulse Rate [ From Monitor] Respiratory 22 27 H Rate Blood Pressure 104/71 104/71 109/73 O2 Sat by Pulse 99 100 99 Oximetry 01/21/21 01/21/21 01/21/21 04:00 04:15 04:30 Temperature 101 F H Pulse Rate 98 H 99 H 99 H Pulse Rate [ 103 H From Monitor] Respiratory 23 31 H 23 Rate Blood Pressure 114/79 111/80 107/80 O2 Sat by Pulse 100 99 98 Oximetry 01/21/21 01/21/21 01/21/21 04:45 05:00 05:15 Temperature Pulse Rate 105 H 98 H 104 H Pulse Rate [ From Monitor] Respiratory 25 H 25 H 26 H Rate Blood Pressure 130/76 112/78 113/83 O2 Sat by Pulse 99 100 99 Oximetry 01/21/21 01/21/21 01/21/21 05:30 05:45 06:00 Temperature Pulse Rate 103 H 100 H 102 H Pulse Rate [ From Monitor] Respiratory 20 15 25 H Rate Blood Pressure 137/77 127/87 120/86 O2 Sat by Pulse 99 99 100 Oximetry 01/21/21 01/21/21 01/21/21 06:15 06:30 06:45 Temperature Pulse Rate 97 H 100 H 96 H Pulse Rate [ From Monitor] Respiratory 22 24 20 Rate Blood Pressure 122/65 129/78 131/78 O2 Sat by Pulse 98 100 99 Oximetry 01/21/21 01/21/21 01/21/21 07:00 07:15 07:30 Temperature Pulse Rate 96 H 103 H 101 H Pulse Rate [ From Monitor] Respiratory 18 22 25 H Rate Blood Pressure 111/72 126/75 116/80 O2 Sat by Pulse 100 100 99 Oximetry 01/21/21 01/21/21 01/21/21 07:40 07:45 08:00 Temperature 99.8 F H Pulse Rate 98 H 100 H 96 H Pulse Rate [ From Monitor] Respiratory 25 H 22 Rate Blood Pressure 116/80 116/80 101/66 O2 Sat by Pulse 100 100 100 Oximetry 01/21/21 01/21/21 01/21/21 08:15 08:30 08:45 Temperature Pulse Rate 94 H 94 H 95 H Pulse Rate [ From Monitor] Respiratory 17 24 28 H Rate Blood Pressure 101/66 120/80 120/80 O2 Sat by Pulse 100 99 100 Oximetry 01/21/21 01/21/21 01/21/21 09:00 09:15 09:31 Temperature Pulse Rate 103 H 105 H 98 H Pulse Rate [ From Monitor] Respiratory 23 22 14 Rate Blood Pressure 129/83 O2 Sat by Pulse 100 100 99 Oximetry 01/21/21 01/21/21 01/21/21 09:45 10:00 10:15 Temperature Pulse Rate 99 H 102 H 106 H Pulse Rate [ From Monitor] Respiratory 16 27 H 26 H Rate Blood Pressure 129/83 127/58 127/58 O2 Sat by Pulse 100 100 100 Oximetry 01/21/21 01/21/21 01/21/21 10:30 10:45 11:00 Temperature Pulse Rate 105 H 100 H 99 H Pulse Rate [ From Monitor] Respiratory 22 29 H 31 H Rate Blood Pressure 113/76 113/76 115/69 O2 Sat by Pulse 100 100 98 Oximetry - General Appearance General appearance: well-developed, well-nourished, appears stated age, intubated EENT: PERRL, mucous membranes moist Neck: no JVD, no thyromegaly, no carotid bruit, supple Respiratory: Present: Clear to Ascultation Cardiology: regular, normal heart rate Gastrointestinal: other (Midline dressing noted. Abdominal binder in place.) Integumentary: other (No edema) - Lab 01/20/21 07:25 01/21/21 08:20 Most recent lab results ABG pH 7.512 (7.320-7.450) H 01/19/21 05:00 ABG pCO2 37.9 mm Hg 01/05/21 03:50 ABG pO2 136.8 mm Hg (80.0-90.0) H 01/05/21 03:50 ABG HCO3 22.4 mmol/L (20.0-26.0) 01/05/21 03:50 ABG O2 Saturation 84.4 (0-100) 01/19/21 05:00 Calcium 8.3 mg/dL (8.4-10.2) L 01/21/21 08:20 Phosphorus 4.40 mg/dL (2.5-4.5) 01/17/21 04:30 Magnesium 1.90 mg/dL (1.7-2.3) 01/20/21 07:25 Urine Creatinine 17.6 mg/dL (0.1-20.0) 01/19/21 Unknown Urine Sodium 87 mmol/L 01/19/21 Unknown Medications & Allergies - Medications Allergies/Adverse Reactions: Allergies Iodinated Contrast Media Adverse Reaction (Verified 09/04/18 14:20) Unknown Home Medications: Home Medications Medication Instructions Recorded Confirmed Last Taken Type AtorvaSTATin [Lipitor] 80 mg PO QHS tablet 05/08/19 01/04/21 03/28/20 Rx Albuterol Sulfate [Proventil Hfa] 13.4 gm IH Q6H #1 hfa.aer.ad 04/01/20 01/04/21 Unknown Rx Dextrose 50% in Water [D50W (25GM) 50 ml IV Q30MIN PRN syringe 01/20/21 Unknown Rx Syringe] Famotidine [Pepcid] 20 mg PO BID tablet 01/20/21 Unknown Rx Free Water 300 ml PO Q4HR oral.liqd 01/20/21 Unknown Rx HYDROmorphone [Dilaudid] 0.25 mg IV Q4H PRN syringe 01/20/21 Unknown Rx HYDROmorphone [Dilaudid] 0.5 mg IV Q4H PRN syringe 01/20/21 Unknown Rx HYDROmorphone [Dilaudid] 1 mg IV Q4H syringe 01/20/21 Unknown Rx Insulin Regular, Human [HumuLIN R] 0 units SUB-Q Q6H units 01/20/21 Unknown Rx Lipase/Protease/Amylase [Pancreaze 1 each FEEDTUBE PRN PRN capsule 01/20/[address] 10,500 Unit] Min Oil/Petrolatum [Artificial 1 applic OU Q4HR PRN tube 01/20/21 Unknown Rx Tears Ophth Oint] Petrolatum,White [Vaseline Lip 1 applic TP Q2HR PRN tube 01/20/21 Unknown Rx Therapy] Potassium Chloride 40 meq FEEDTUBE BID packet 01/20/21 Unknown Rx QUEtiapine [SEROquel] 50 mg PO BID tablet 01/20/21 Unknown Rx Simple Syrup 15 ml FEEDTUBE PRN PRN oral.liqd 01/20/21 Unknown Rx Sodium Bicarbonate 325 mg FEEDTUBE PRN PRN tablet 01/20/21 Unknown Rx Sodium Chloride 0.9% Int [Sodium 10 ml IV BID syringe 01/20/21 Unknown Rx Chloride Flush Syringe 10 ml] Sodium Chloride 0.9% Int [Sodium 10 ml IV PRN PRN syringe 01/20/21 Unknown Rx Chloride Flush Syringe 10 ml] dexmedeTOMIDine [Dexmedetomidine] 1,000 mcg IV TITRATE vial 01/20/21 Unknown Rx fentaNYL 50 MCG/HR Patch 72HR 1 applic TD Q3D ea 01/20/21 Unknown Rx [Duragesic 50mcg] Active Medications: Generic Name Dose Route Start Last Admin Trade Name Freq PRN Reason Stop Dose Admin Acetaminophen 650 mg 01/16/21 03:57 01/21/21 06:20 Acetaminophen 325 Mg/10.15 Ml Oral Liqd Unit Dose FEEDTUBE 650 mg Q6H PRN Administration Non Cardiac Pain or Temp>100.5 Lipase/Protease/Amylase 1 each 01/07/21 08:44 Lipase 10,500/Protease 25,000/Amylase 43,750 (Units) Cap FEEDTUBE PRN PRN For Clogged Feeding Tube Dextrose 50 ml 12/24/20 10:49 Dextrose 50% In Water (25gm) 50 Ml Syringe IV Q30MIN PRN Hypoglycemia Protocol Famotidine 20 mg 01/17/21 10:00 01/21/21 09:40 Famotidine 20 Mg Tab PO 20 mg BID ASCENCION Administration Fentanyl 1 applic 01/11/21 14:00 01/20/21 09:49 Fentanyl 50 Mcg/Hr Patch 72hr TD 1 applic Q3D ASCENCION Administration Heparin Sodium (Porcine) 5,000 unit 01/06/21 14:00 01/21/21 06:15 Heparin 5,000 Unit/1 Ml Vial SUB-Q 5,000 unit Q8HR ASCENCION Administration Hydromorphone HCl 0.5 mg 01/12/21 10:10 01/17/21 15:00 Hydromorphone 1 Mg/1 Ml Inj IV 0.5 mg Q4H PRN Administration Pain , Severe (7-10) Hydromorphone HCl 0.25 mg 01/12/21 10:11 01/15/21 15:40 Hydromorphone 1 Mg/1 Ml Inj IV 0.25 mg Q4H PRN Administration Pain, Moderate (4-6) Hydromorphone HCl 1 mg 01/19/21 11:00 01/21/21 10:02 Hydromorphone 1 Mg/1 Ml Inj IV 1 mg Q4H ASCENCION Administration Hydrophilic Ointment 1 applic 12/20/20 21:58 Lip Therapy Vaseline TP Q2HR PRN Dry Lips Propofol 1,000 mg in 100 mls @ 3.606 mls/hr 12/20/20 22:00 01/19/21 15:12 Diprivan 10 Mg/Ml IV 0 mcg/kg/min TITR ASCENCION 0 mls/hr Titration Protocol 5 MCG/KG/MIN Dexmedetomidine HCl 1,000 mcg/ 260 mls @ 7.322 mls/hr 01/15/21 01:00 01/21/21 10:41 Sodium Chloride IV 1.2 mcg/kg/hr TITRATE ASCENCION 43.93 mls/hr Administration Protocol 0.2 MCG/KG/HR Cefepime HCl 2 gm in 100 mls @ 200 mls/hr 01/20/21 12:00 01/21/21 09:39 Cefepime/Ns 2 Gm/100 Ml IV 01/26/21 22:29 200 mls/hr Q12HR ASCENCION Administration Protocol Insulin Human Regular 0 units 12/28/20 00:00 01/21/21 07:00 Insulin Regular, Human 100 Units/1 Ml SUB-Q Not Given Q6H [facility] Protocol Metoprolol Tartrate 5 mg 01/14/21 13:37 01/15/21 12:42 Metoprolol Tartrate 5 Mg/5 Ml Inj IV 5 mg Q6H PRN Administration SBP >/=160 Multi-Ingred Cream/Lotion/Oil/Oint 1 applic 12/20/20 21:58 01/03/21 01:13 Mineral Oil/Petrolatum, White Ophth Oint 3.5 Gm OU 1 applic Q4HR PRN Administration Dry Eye(s) Quetiapine Fumarate 50 mg 01/19/21 12:00 01/21/21 09:40 Quetiapine 25 Mg Tab PO 50 mg BID ASCENCION Administration Simple Syrup 15 ml 01/07/21 08:44 Simple Syrup 15 Ml FEEDTUBE PRN PRN Hypoglycemia Sodium Bicarbonate 325 mg 01/07/21 08:44 Sodium Bicarbonate 325 Mg Tab FEEDTUBE PRN PRN For Clogged Feeding Tube Sodium Chloride 10 ml 12/20/20 22:00 01/21/21 09:41 Sodium Chloride 0.9% 10 Ml Flush Syringe IV 10 ml BID ASCENCION Administration Sodium Chloride 10 ml 12/20/20 16:42 01/17/21 06:01 Sodium Chloride 0.9% 10 Ml Flush Syringe IV 10 ml PRN PRN Administration LINE FLUSH
[2021-01-21] MEDS: DEXTROSE 5% IN WATER 1,000 ML IV SCH (12:54)
--- NOTE | 2021-01-21 12:56 | Progress Note ---
Assessment and Plan Assessment and plan: Assessment and plan: This is a 60-year-old male with obesity, hypertension, nicotine dependence, PVD s/p stent placement on dual antiplatelet therapy, hyperlipidemia, OA, GERD, v entral hernia and small bowel obstruction who was admitted with small bowel obstruction and peritonitis Neuro Postoperative pain; hx OA; hx acute/chronic abd pain; hx narcotic use at home due to a/c pain; hx med non adherence -IV PRN pain meds -avoid oversedation as they will inhibit his SBT -continuing to wean propofol and dex but pt does get agitated and pulls at lines and tubes - PO seroquel BID today- monitor response; hope is this will facilitate d/c of propofol -PRN pain medications -has been getting dilaudid scheduled every 4 hours for pain; for post op pain and high opiate use/tolerance; Dr Cherry would like to continue -normalize day night to limit delirium -remains in soft wrist restraints and mittens -nodding appropriately -following commands -moving all extremities -not that due to pts chronic pain he was on opiates at home (per family he took more than was prescribed); per his brother he would not fill his non pain medications so that he could get his opiates; hopefully now that his hernias have been repaired this will not be an ongoing issue the immediate post op recovery period. -Pt has a son (disclosed late in admission), pt lives with his mother; pt has a brother that is has been involved in care decisions. The brother states their mother is of age and not well herself so she has deferred care decisions to him Discharge planning per case resource manager impending LTAC placement CV on no pressors SR Hypertension -resume home meds for bp when appropriate -metop PRN hx CAD with stent -resume home asa and plavix when appropriate; was also on pletal hx Hyperlipidemia -resume home statin when appropriate Resp Post op hypoxic respiratory failure -intubated 12/20 -remains intubated -consider trach -daily sedation holiday -vent weaning and conditioning to PS as tolerated; daily per RT -ETT repositioned 24 cm at teeth is 1.5 cm above henrietta; pt has a lot of secretions today- white and thin in nature Nicotine dependence -Smoking cessation counseling when appropriate GI Small bowel obstruction with peritonitis, incarcerated Ventral hernia s/p repair -12/20 CT abdomen/pelvis showed high-grade small bowel obstruction related to severe complex ventral abdominal wall hernias, progressed in appearance from prior exam from 09/12/2020 without evidence of pneumonitis or pneumoperitoneum, patchy bibasilar airspace disease concern for atypical infectious process/pneumonitis -12/20 s/p ex lap, extensive lysis of adhesions, small bowel resection (removal of 70 cm necrotic small bowel segment), peritoneal lavage and ABThera abdominal wound VAC placement -12/23 s/p abdominal exploration, small bowel resection, peritoneal lavage, ABTh era wound VAC placement -12/26 s/p ex lap, small bowel resection, peritoneal lavage, ABThera wound VAC placement -12/29 s/p ex lap, small bowel resection, small bowel anastomosis and ABThera wound VAC placement -01/01 s/p myocutaneous flap creation, abdominal wall component separation and placement of phasix mesh with surgery yesterday where his abdomen was closed and 2 LAURA drains were placed on either side of his midline between fascia and subcu tissue. -12/30 initiated on HD by nephro -01/09 CT abdomen/pelvis with contrast shows large organized virtually bland appearing fluid collection along the anterior abdomen measuring up to 29 cm in the craniocaudal dimension and 2.6 cm in transverse dimension which may reflect postoperative seroma or hematoma, no associated gas to suggest superimposed in fection, no contrast is seen within the collection to suggest bowel perforation -01/09 CT chest with contrast shows CHF with small left and trace right pleural effusions and diffuse groundglass opacities in airspace consolidation consistent with pulmonary edema (superimposed multifocal pneumonia is not excluded), diffuse anasarca likely related to third spacing of fluid. Midline abdominal incision -Ulceration to midline abdominal incision with purulent drainage -01/17 wound culture sent with primary growth of gram-negative rods -WOCN consulted, appreciate recommendations -Wound care per nursing -Dr Tena aware of wound status-continue wound care per WOCN; nav should remain in for now; LAURA drains to remain until pt extubated Protein calorie malnutrition -S/p TPN- discontinued as he is tolerating TF -dobhoff replaced this AM- KUB ordered -Tube feedings per nutrition recs changed TF due to diarrhea fiber hx GERD -continue PPI diarrhea -appears to be TF diarrhea -fiber to continue -BMS in place- remove steffen Acute Kidney Injury, due to ATN improving; hypoMg; hypoK; hyperna -12/23 fracture excretion of sodium calculated at 0.16 secondary prerenal state -nephrology following -HD d/c given renal recovery -Strict intake and output -net neg 2L over 24 hours; polyuria continues -Daily weights -Trend Cr -polyuria Hypernatremia -D5W -Trend sodium -FWF Hypoalbuminemia -ntr consulted Heme Anemia -Transfuse for hemoglobin less than 7 -01/09 stool occult positive -GI aware -Trend Hgb -no bleeding on exam (stools taylor in color) VTE prophylaxis -cont SCD and ASCENCION ID Septic Shock on admit; peritonitis; leukocytosis: bacteremia/wound/UTI -ID following -Antibiotic therapy per ID -changed to dawna 01-18 -follow cultures -urine culture sent -salvatore dc 01-18 -haley changed 01-18 -12/20 tracheal aspirate with mucus species which does not to be treated per ID -12/20 blood cultures x2 with no growth, urine culture with usual skin giorgio -01/16 blood cultures x2 with gram-negative jesus, abdominal wound culture with 2 species of gram-negative rods -COVID-19 neg on admit -trend temp and WBC curve -wound care per WOCN and nursing Endo hx Obesity Hyperglycemia -SSI PRN -avoid hypoglycemia PLAN LTAC ON Saturday, 01/24 GI/DVT prophylaxis: PPI, SCDs and SQH Disposition: ICU, pending LTAC Lines: PICC placed 01/05, Haley catheter; BMS The high probability of a clinically significant, sudden or life threatening deterioration of the [multi] system(s) required my full and direct attention, intervention and personal management. The aggregate critical care time was [35] minutes. This time is in addition to time spent performing reported procedures but includes the following: [x] Data Review and interpretation [x] Patient assessment and monitoring of vital signs [x] Documentation [x] Medication orders and management History Interval history: This is a 60-year-old male with obesity, hypertension, nicotine dependence, PVD s/p stent placement on dual antiplatelet therapy, hyperlipidemia, OA, GERD, ventral hernia with SBO who presents to the emergency department on 12/20 with severe, diffuse, worsened with movement, slightly relieved with rest abdominal p ain rated at 10/10 with decreased oral intake, nausea and multiple episodes of vomiting. Patient underwent a CT of his abdomen/pelvis and was found to have evidence of small bowel obstruction as well as clinical findings consistent with acute peritonitis. Patient was admitted to the hospital service with acute peritonitis and incarcerated ventral hernia with consults to [facility] and surgery. 12/21: Patient is status post ex lap, extensive lysis of adhesions, small bowel resection, peritoneal lavage and ABThera abdominal wound VAC placement by Dr. Tena and Dr. Brumfield on 12/20 with removal of a 70 cm segment of necrotic small bowel. Patient was intubated and sedated on propofol 4 at the time of my examination on Assist-control, rate of 24, PEEP of 6, tidal volume of 550 and FiO2 35%. Patient needed to be deeply sedated and there was a became hypotensive. Patient was started on patient for support with Levophed and received bolus of IVF. 12/22: Patient was febrile to 103 and vancomycin and Diflucan were added by [facility] and infectious disease was consulted and they increased Zosyn and stop vancomycin. Patient was given additional 1 L bolus today for CVP goal of 10-12. At the time of examination patient was on Levophed, propofol and fentanyl CMV tidal volume 500, rate of 24, PEEP of 6 and FiO2 65%. Plan for OR tomorrow 12/23: Patient Cr/BUN noted to be increased and nephrology was consulted. ID decreased the zosyn dose d/r renal function. Urine studies ordered. [place] placed today. LR boluses per [facility], TPN to be started. Fractional excretion of sodium calculated at 0.16 indicating prerenal state 12/24: Patient is status post abdominal exploration, small bowel resection of 4 to 5 cm segment of dusky small bowel, peritoneal lavage and ABThera wound VAC placement on 12/23 with surgery, leukocytosis and renal function is improving, worsening hypernatremia and hyperchloremia. Patient will be started on TPN today. We will place on SSI/Accu-Cheks every every 6 hours. Patient noted to be nearly maxed on Levophed and vasopressin was ordered. Remains sedated and on MV 12/25: Leukocytosis continues to improve, given Ca Gluconate today, Hypernatremia, Cr and hyperchorlemia slightly worsened today. Patient is sedated with propofol and fentanyl on CMV TV 500, Rate 24, Peep 6, FiO2 50%. He remains on levophed. Possible OR Saturday. 12/26 Patient presented with small bowel obstruction, is status post ex lap, extensive lysis of adhesions, small bowel resection, peritoneal lavage and ABThera abdominal wound VAC placement by Dr. Tena and Dr. Brumfield on 12/20 with removal of a 70 cm segment of necrotic small bowel. Was taken back to OR on 12/23 s/p Abdominal exploration, Small bowel resection, Peritoneal lavage, ABThera wound VAC placement. he is still having fever. Poss going to OR again today. Sepsis managed by ID. He is on Diflucan, Zosyn. He is on Levophed. 6/ s/p ex lap, extensive lysis of adhesions, small bowel resection (removal of 70 cm necrotic small bowel segment), peritoneal lavage and ABThera abdominal wound VAC placement. Still having fever Still on vent 12/28: Patient is orally intubated with AC mode ventilation rate 24, tidal volume 500, FiO2 75% and PEEP of 6. POD#8 s/p ex lap and small bowel resection for necrotic bowel secondary to incarcerated ventral hernia left with open abdomen. POD#5 s/p abdominal exploration with segmental small bowel resection. abthera placement POD#2 s/p abdominal exploration, small bowel resection for ischemia, abthera placement -CCM, surgery, infectious disease, nephrology consulted, appreciate recommendations -IV abx per ID: Zosyn, fluconazole -NGT to LIWS -NPO for now, TPN -SSI, Accucheck q6 -Vasopressor support with levophed -On mechanical ventilation, wean as tolerated, VAP bundle -Sedated with propofol and analgesia with fentanyl drip -Trend CBC, BMP, Mg, Phos -GI/DVT prophylaxis: PPI, SCDs to bilateral lower extremities while in bed, avoid chemical anticoagulation to cleared by surgery 12/29: Patient underwent abdominal exploration, small bowel resection, small bowel anastomosis and ABThera wound VAC placement this a.m. Patient remains on AC mode ventilation with a rate of 24, tidal volume 500, FiO2 65% and PEEP of 6. Continue antibiotics per ID recommendations. Continue vasopressor support as needed. Continue TPN for nutritional support. 12/30: Patient currently with AC mode ventilation rate of 24, tidal volume 500, FiO2 60% and PEEP of 6. Patient underwent further surgery yesterday with another abdominal exploration, small bowel resection, small bowel anastomosis and replacement of the ABThera wound VAC. Patient continues to require vasopressor support with vasopressin and Levophed. Continue TPN for nutrition. Continue propofol and fentanyl for sedation. Continue Zosyn per ID recommendations. INITIATED ON HD PER NEPHRO 12: Patient currently with AC mode ventilation rate of 24, tidal volume 500, FiO2 50% and PEEP of 6. POD#12 s/p ex lap and small bowel resection for necrotic bowel secondary to incarcerated ventral hernia left with open abdomen. POD#9 s/p abdominal exploration with segmental small bowel resection. abthera placement POD#3 s/p abdominal exploration, small bowel resection for ischemia, abthera placement POD#2 s/p abdominal exploration with small bowel anastamosis and abthera vac placement Continue hemodialysis per nephrology recommendations. Surgery plans for abdominal washout and bowel examination on Saturday. If an astamosis looks viable and no other issues, surgery plans to close his abdomen. 01/01: Continue current ventilator settings per pulmonary monitor ABG. Continue antibiotics per ID recommendations. Surgery plans for abdominal washout and bowel examination. If anastamosis looks viable and no other issues, surgery plans to close his abdomen. Wean pressors to maintain MAP > 65. Continue TPN for nutritional support. Hemodialysis per nephrology recommendations. Prognosis remains guarded. 01/02: At the time my examination patient was only on vasopressin for vasopressor support, sedated on 30 mcg of propofol and 4 mcg of fentanyl. Patient was on CMV tidal volume 500, rate of 12, PEEP of 10 and 50% FiO2. Patient remains on TPN and with NG tube to low intermittent suction. Patient underwent a myocutaneous flap creation, abdominal wall component separation and placement of phasix mesh with surgery yesterday where his abdomen was closed and 2 LAURA drains were placed on either side of his midline between fascia and subcu tissue. Per infectious his antibiotics will continue until 5 days postop from a final surgery. Patient has increasing leukocytosis which are likely reactive to surgery and patient will have hemodialysis today for clearance and volume removal. Patient sedation and mechanical ventilation will be weaned for extubation. 01/03: Patient H/H is 6.2/18.5 and he is being transfused 2 units PRBC with hemodialysis today. Patient has slight hypokalemia but TPN has been adjusted to address potassium. Patient continues to have hyponatremia, hypochloremia and hyperphosphatemia closely improved. The time my examination patient sedated on fentanyl and propofol and LAURA drainage noted to be more serosanguineous. Patient was on assist control with TV 500, PEEP of 8, rate of 28 and FiO2 40%. Patient remains off vasopressor support. No acute overnight events reported 01/04: Patient sedated on propofol and fentanyl. RN reported bowel movement overnight. Precedex drip started. NG tube clamped and may start trickle tube feedings later if patient does not have high residuals. CCM continues to wean ventilation as tolerated. On my exam patient is on CMV tidal volume 500 rate of 28, PEEP of 8 and 40% FiO2. Patient is having periods of agitation and FiO2 had to be increased for hypoxia. Mucor species in tracheal aspirate but ID believes this is colonization. 01/05: Patient is severely agitated and received multiple IV push fentanyl. Patient was ultimately started on propofol. He received hemodialysis today. Patient had approximately 400 mL of NG output overnight. NG tube continues to be on suction. Leukocytosis worsened today. 01/06: Patient is agitated despite fentanyl pushes and Dilaudid was ordered, patient noted to be anemic with a hemoglobin of 6.5 and will be transfused 1 unit PRBC today. Nephrology does not plan to dialyze him today and to keep him on Saturday, , Saturday schedule. No acute events reported overnight. Patient NG tube residuals continue to decrease and surgery has cleared for trickle tube feeds which has been communicated to dietitian. 01/07: This this morning H/H resulted at 6.7/20.1 after 1 unit PRBC 6.7/21.8. Patient's ABG today shows respiratory acidosis and vent settings have been changed by [facility]. Patient should receive hemodialysis today as he is on Saturday schedule. Overnight RN reported 700 mL of NG tube output over 12 hours. We will hold off on trickle feeds and continue TPN. At the time of my examination patient was sedated on propofol, fentanyl, Precedex and on CMV tidal volume 550, rate of 10, PEEP of 8 and 35% FiO2. We will order coags and stool guaiac to further investigate anemia. -01/09 stool pos for guiac; CT Chest/abd/pelvis -01/10: Patient this morning with elevated BP, likely secondary to pain vs ?Hx of Htn, Hydralazine PRN ordered and added to the patient, will monitor. Continue pain control. Wound care management and vent weaning when ok with surgery and Professor In Family [employer] 01/12: Continue supportive care including pain control. Monitor for bowel movement. Continue off antibiotics per ID monitor. Customer Account Administrator following for HD. 01/13/21 patient is seen and examined. Patient is still on vent. Wean to extubate as per critical care. Patient is off antibiotic as per infectious disease. Status post dialysis catheter placed in the right IJ. HD as per n ephrology. Continue current management. Recheck CBC BMP in the morning. 01/14/21 patient seen and examined. Patient is still on vent. Patient is agitated. We will try to wean the sedation. We will start metoprolol 5 mg p.o. every 8 hours as needed for blood pressure. Patient is off antibiotic as per infectious disease. Continue hemodialysis as per nephrology. Continue current management. Critical care follow-up. Prognosis is guarded. Recheck CBC BMP in the morning 01/15: Remains with guarded prognosis, no clear evidence of renal recovery, still on the vent. Monitor H/H and repeat CT A/P if downward trend. Replace K. 01/16: Patient is hypokalemic today at 2.9, patient's urinalysis reveals UTI and patient is already on cefepime, vancomycin and fluconazole per ID. Patient's ur ine output noted to be 7943-6527 mL over the past couple days. Nephrology requested to hold off removal of Haley catheter as the patient seems to be in the diuretic phase of ATN and will withhold dialysis for now and evaluate. At the time my examination patient is sedated on propofol and Precedex on CMV tidal line 500, rate of 24, PEEP of 6 and 30% FiO2. Patient was febrile last night with a T-max of 102.7. Patient was cultured overnight. Wound care consult for abd wound with purulent drainage, culture sent. 01/17: Patient is again hypokalemic and hypomagnesemic which was repleted with K- Phos and KCl overnight. Patient has hypernatremia. Nephrology has started the patient on hypotonic IVF with potassium. Right IJ Vas-Cath ordered to be removed. Patient's abdominal culture and blood cultures from 01/16 are growing gram-negative rods. The time my examination patient was on propofol and dexamethasone on assist control. T-max 102.7. 01/18 Discharge planning for LTAC; weaning propofol 01/19 no acute events overnight 01/20: LTACH transfer today, wean propofol 01/21: Patient discharged to LTAC has been delayed (see note). Patient was febrile overnight however we will maintain his current regimen. Patient has hypernatremia and has been started on D5W by nephrology. Possible transfer to LTAC Saturday. Hospitalist Physical - Constitutional Vitals: Temp Pulse Resp BP Pulse Ox 100.3 F H 98 H 31 H 115/69 100 01/21/21 12:00 01/21/21 11:26 01/21/21 11:00 01/21/21 11:01/21/21 11:26 General appearance: Present: obese, other (Agitated on vent) - EENT Eyes: Present: PERRL, EOM intact ENT: dentition normal - Neck Neck: Present: normal ROM - Respiratory Respiratory effort: normal Respiratory: bilateral: diminished - Cardiovascular Rhythm: regular Heart Sounds: Present: S1 & S2. Absent: systolic murmur, diastolic murmur - Extremities Extremities: no ischemia, pulses intact, pulses symmetrical, normal temperature, normal color Peripheral Pulses: within normal limits - Abdominal General gastrointestinal: soft, non-tender, non-distended, normal bowel sounds, other (abd binfer in place) - Integumentary Integumentary: Present: warm, dry - Psychiatric Psychiatric: cooperative - Neurologic Neurologic: CNII-XII intact, no focal deficits, moves all extremities - Allied Health Allied health notes reviewed: nursing, RT, social work HEART Score - HEART Score EKG: Normal Age: < 45 Risk factors: No known risk factors Troponin: Troponin T < 0.010 ng/mL (0.00-0.029) 12/20/20 13:58 Troponin: < normal limit - Critical Actions Critical Actions: 0-3 pts:0.9-1.7%risk of adverse cardiac event.Candidate for discharge Results - Labs CBC & Chem 7: 01/20/21 07:25 01/21/21 08:20 Labs: Laboratory Last Values WBC 9.6 K/mm3 (4.5-11.0) 01/20/21 07:25 RBC 2.94 M/mm3 (3.65-5.03) L 01/20/21 07:25 Hgb 8.4 gm/dl (11.8-15.2) L 01/20/21 07:25 Hct 25.9 % (35.5-45.6) L 01/20/21 07:25 MCV 88 fl (84-94) 01/20/21 07:25 MCH 29 pg (28-32) 01/20/21 07:25 MCHC 32 % (32-34) 01/20/21 07:25 RDW 17.2 % (13.2-15.2) H 01/20/21 07:25 Plt Count 372 K/mm3 (140-440) 01/20/21 07:25 Lymph % (Auto) 6.5 % (13.4-35.0) L 01/14/21 05:00 [place] % (Auto) 2.5 % (0.0-7.3) 01/14/21 05:00 Eos % (Auto) 7.7 % (0.0-4.3) H 01/14/21 05:00 Baso % (Auto) 0.6 % (0.0-1.8) 01/14/21 05:00 Lymph # (Auto) 0.8 K/mm3 (1.2-5.4) L 01/14/21 05:00 [place] # (Auto) 0.3 K/mm3 (0.0-0.8) 01/14/21 05:00 Eos # (Auto) 1.0 K/mm3 (0.0-0.4) H 01/14/21 05:00 Baso # (Auto) 0.1 K/mm3 (0.0-0.1) 01/14/21 05:00 Add Manual Diff Complete 01/10/21 04:01 Total Counted 100 01/10/21 04:01 Seg Neutrophils % 82.7 % (40.0-70.0) H 01/14/21 05:00 Seg Neuts % (Manual) 95.0 % (40.0-70.0) H 01/10/21 04:01 Band Neutrophils % 2.0 % 01/10/21 04:01 Lymphocytes % (Manual) 3.0 % (13.4-35.0) L 01/10/21 04:01 Monocytes % (Manual) 1.0 % (0.0-7.3) 01/09/21 10:10 Metamyelocytes % 1.0 % 01/09/21 10:10 Myelocytes % 1.0 % 01/09/21 10:10 Nucleated RBC % Not Reportable 01/10/21 04:01 Seg Neutrophils # 10.2 K/mm3 (1.8-7.7) H 01/14/21 05:00 Seg Neutrophils # Man 12.0 K/mm3 (1.8-7.7) H 01/10/21 04:01 Band Neutrophils # 0.3 K/mm3 01/10/21 04:01 Lymphocytes # (Manual) 0.4 K/mm3 (1.2-5.4) L 01/10/21 04:01 Abs React Lymphs (Man) 0.0 K/mm3 01/10/21 04:01 Monocytes # (Manual) 0.0 K/mm3 (0.0-0.8) 01/10/21 04:01 Eosinophils # (Manual) 0.0 K/mm3 (0.0-0.4) 01/10/21 04:01 Basophils # (Manual) 0.0 K/mm3 (0.0-0.1) 01/10/21 04:01 Metamyelocytes # 0.0 K/mm3 01/10/21 04:01 Myelocytes # 0.0 K/mm3 01/10/21 04:01 Promyelocytes # 0.0 K/mm3 01/10/21 04:01 Blast Cells # 0.0 K/mm3 01/10/21 04:01 WBC Morphology Not Reportable 01/10/21 04:01 Hypersegmented Neuts Not Reportable 01/10/21 04:01 Hyposegmented Neuts Not Reportable 01/10/21 04:01 Hypogranular Neuts Not Reportable 01/10/21 04:01 Smudge Cells Not Reportable 01/10/21 04:01 Toxic Granulation Not Reportable 01/10/21 04:01 Toxic Vacuolation Not Reportable 01/10/21 04:01 Dohle Bodies Not Reportable 01/10/21 04:01 Pelger-Huet Anomaly Not Reportable 01/10/21 04:01 Mirian Rods Not Reportable 01/10/21 04:01 Platelet Estimate Consistent w auto 01/10/21 04:01 Clumped Platelets Not Reportable 01/10/21 04:01 Plt Clumps, EDTA Not Reportable 01/10/21 04:01 Large Platelets Not Reportable 01/10/21 04:01 Giant Platelets Not Reportable 01/10/21 04:01 Platelet Satelliting Not Reportable 01/10/21 04:01 Plt Morphology Comment Not Reportable 01/10/21 04:01 RBC Morphology Not Reportable 01/10/21 04:01 Dimorphic RBCs Not Reportable 01/10/21 04:01 Polychromasia Not Reportable 01/10/21 04:01 Hypochromasia Few 01/10/21 04:01 Poikilocytosis Not Reportable 01/10/21 04:01 Anisocytosis Few 01/10/21 04:01 Microcytosis Few 01/10/21 04:01 Macrocytosis Not Reportable 01/10/21 04:01 Spherocytes Not Reportable 01/10/21 04:01 Pappenheimer Bodies Not Reportable 01/10/21 04:01 Sickle Cells Not Reportable 01/10/21 04:01 Target Cells Not Reportable 01/10/21 04:01 Tear Drop Cells Not Reportable 01/10/21 04:01 Ovalocytes Not Reportable 01/10/21 04:01 Helmet Cells Not Reportable 01/10/21 04:01 [place] Bodies Not Reportable 01/10/21 04:01 [place] Rings Not Reportable 01/10/21 04:01 [place] Cells Not Reportable 01/10/21 04:01 Bite Cells Not Reportable 01/10/21 04:01 Crenated Cell Not Reportable 01/10/21 04:01 Elliptocytes Not Reportable 01/10/21 04:01 Acanthocytes (Spur) Not Reportable 01/10/21 04:01 Rouleaux Not Reportable 01/10/21 04:01 Hemoglobin C Crystals Not Reportable 01/10/21 04:01 Schistocytes Not Reportable 01/10/21 04:01 Malaria parasites Not Reportable 01/10/21 04:01 Dylon Bodies Not Reportable 01/10/21 04:01 Hem Pathologist Commnt No 01/10/21 04:01 PT 15.4 Sec. (12.2-14.9) H 01/10/21 04:01 INR 1.17 (0.87-1.13) H 01/10/21 04:01 APTT 40.2 Sec. (24.2-36.6) H 01/10/21 04:01 Fibrinogen 817 mg/dl (211-480) H 01/10/21 04:01 ABG pH 7.512 (7.320-7.450) H 01/19/21 05:00 POC ABG pCO2 32.5 mmHg (32.0-48.0) 01/19/21 05:00 ABG pCO2 37.9 mm Hg 01/05/21 03:50 POC ABG pO2 47.8 mmHg (83-108) L 01/19/21 05:00 ABG pO2 136.8 mm Hg (80.0-90.0) H 01/05/21 03:50 POC ABG HCO3 25.5 01/19/21 05:00 ABG HCO3 22.4 mmol/L (20.0-26.0) 01/05/21 03:50 ABG O2 Saturation 84.4 (0-100) 01/19/21 05:00 ABG O2 Content 9.8 (0.0-44) 01/05/21 03:50 POC ABG Base Excess 2.6 01/19/21 05:00 ABG Base Excess -2.3 mmol/L (-2.0-3.0) L 01/05/21 03:50 ABG Hemoglobin 8.9 (12.0-17.5) L 01/19/21 05:00 ABG Oxyhemoglobin 83.3 (94-98) L 01/19/21 05:00 ABG Carboxyhemoglobin 1.5 % (0.0-5.0) 01/05/21 03:50 ABG Methemoglobin 0.3 (0.0-1.5) 01/19/21 05:00 ABG Sodium 151.5 mmol/L (136.0-145.0) H 01/19/21 05:00 ABG Potassium 2.9 mmol/L (3.40-4.50) L 01/19/21 05:00 ABG Chloride 117.0 mmol/L (98-107) H 01/19/21 05:00 ABG Glucose 111 mg/dL (65-95) H 01/19/21 05:00 Oxyhemoglobin 96.7 % (95.0-99.0) 01/05/21 03:50 Carboxyhemoglobin 1.0 (0.5-1.5) 01/19/21 05:00 FiO2 50 % 01/05/21 03:50 FiO2 % 30.0 01/19/21 05:00 Sodium 153 mmol/L (137-145) H 01/21/21 08:20 Potassium 4.5 mmol/L (3.6-5.0) 01/21/21 08:20 Chloride 118.2 mmol/L (98-107) H 01/21/21 08:20 Carbon Dioxide 23 mmol/L (22-30) 01/21/21 08:20 Anion Gap 16 mmol/L 01/21/21 08:20 BUN 47 mg/dL (9-20) H 01/21/21 08:20 Creatinine 1.3 mg/dL (0.8-1.3) 01/21/21 08:20 Estimated GFR 57 ml/min 01/21/21 08:20 BUN/Creatinine Ratio 36 % 01/21/21 08:20 Glucose 105 mg/dL (75-100) H 01/21/21 08:20 POC Glucose 103 mg/dL (70-105) 01/21/21 11:12 Lactic Acid 1.70 mmol/L (0.7-2.0) 12/20/20 16:20 Calcium 8.3 mg/dL (8.4-10.2) L 01/21/21 08:20 Ionized Calcium 3.3 mg/dL (4.8-5.6) L 12/27/20 14:40 Phosphorus 4.40 mg/dL (2.5-4.5) 01/17/21 04:30 Magnesium 1.90 mg/dL (1.7-2.3) 01/20/21 07:25 Total Bilirubin 0.50 mg/dL (0.1-1.2) 01/16/21 04:30 AST 19 units/L (5-40) 01/16/21 04:30 ALT 18 units/L (7-56) 01/16/21 04:30 Alkaline Phosphatase 118 units/L (35-129) 01/16/21 04:30 Troponin T < 0.010 ng/mL (0.00-0.029) 12/20/20 13:58 Total Protein 6.4 g/dL (6.3-8.2) 01/16/21 04:30 Albumin 2.1 g/dL (3.9-5) L 01/16/21 04:30 Albumin/Globulin Ratio 0.5 % 01/16/21 04:30 Triglycerides 216 mg/dL (2-149) H 01/17/21 04:30 Arterial Blood Glucose 111 mg/dL (65-95) H 01/19/21 05:00 Arterial Blood Ionized Calcium 4.3 mg/dL (4.6-5.3) L 01/19/21 05:00 Urine Color Yellow (Yellow) 01/20/21 07:25 Urine Turbidity Clear (Clear) 01/20/21 07:25 Urine pH 6.0 (5.0-7.0) 01/20/21 07:25 Ur Specific [place] 1.008 (1.003-1.030) 01/20/21 07:25 Urine Protein 30 mg/dl mg/dL (Negative) 01/20/21 07:25 Urine Glucose (UA) Neg mg/dL (Negative) 01/20/21 07:25 Urine Ketones Neg mg/dL (Negative) 01/20/21 07:25 Urine Blood Lg (Negative) 01/20/21 07:25 Urine Nitrite Neg (Negative) 01/20/21 07:25 Urine Bilirubin Neg (Negative) 01/20/21 07:25 Urine Urobilinogen < 2.0 mg/dL (<2.0) 01/20/21 07:25 Ur Leukocyte Esterase Mod (Negative) 01/20/21 07:25 Urine WBC (Auto) 30.0 /HPF (0.0-6.0) H 01/20/21 07:25 Urine RBC (Auto) 5.0 /HPF (0.0-6.0) 01/20/21 07:25 U Epithel Cells (Auto) < 1.0 /HPF (0-13.0) 01/20/21 07:25 Urine Bacteria (Auto) 1+ /HPF (Negative) 01/20/21 07:25 Urine WBC Clumps 3+ /HPF 01/16/21 Unknown Ur Renal Epithelial Cell 8 /LPF 01/16/21 Unknown Triple Phos Crystals 2+ 12/23/20 12:15 Hyaline Casts 11 /LPF 01/16/21 Unknown Urine Mucus Few /HPF 01/16/21 Unknown Urine Eosinophils None seen (None Seen) 12/23/20 12:15 Urine Creatinine 17.6 mg/dL (0.1-20.0) 01/19/21 Unknown Urine Sodium 87 mmol/L 01/19/21 Unknown Fraction Sodium Excret 0.2 12/23/20 12:15 Random Vancomycin 5.8 ug/mL (0-40.0) 01/17/21 04:30 Coronavirus (PCR) Negative (Negative) 12/21/20 Unknown Hepatitis A IgM Ab Non-reactive (NonReactive) 12/30/20 14:40 Hep Bs Antigen Non-reactive (Negative) 12/30/20 14:40 Hep B Core IgM Ab Non-reactive (NonReactive) 12/30/20 14:40 Hepatitis C Antibody Non-reactive (NonReactive) 12/30/20 14:40 Blood Type A NEGATIVE 01/06/21 11:00 Antibody Screen Negative 01/06/21 11:00 Crossmatch See Detail 01/06/21 11:00 Microbiology: Microbiology 01/19/21 11:40 Urine,Catheterized - Indwelling Catheter Urine Culture - Final NO GROWTH AFTER 48 HOURS 01/20/21 13:01 Peripheral/Venous Blood Culture - Preliminary Culture in Progress 01/20/21 11:43 Peripheral/Venous Blood Culture - Preliminary Culture in Progress Haley/IV: Voiding Method Indwelling Catheter Active Medications - Current Medications Current Medications: Generic Name Dose Route Start Last Admin Trade Name Freq PRN Reason Stop Dose Admin Acetaminophen 650 mg 01/16/21 03:57 01/21/21 06:20 Acetaminophen 325 Mg/10.15 Ml Oral Liqd Unit Dose FEEDTUBE 650 mg Q6H PRN Administration Non Cardiac Pain or Temp>100.5 Lipase/Protease/Amylase 1 each 01/07/21 08:44 Lipase 10,500/Protease 25,000/Amylase 43,750 (Units) Dr Cap FEEDTUBE PRN PRN For Clogged Feeding Tube Dextrose 50 ml 12/24/20 10:49 Dextrose 50% In Water (25gm) 50 Ml Syringe IV Q30MIN PRN Hypoglycemia Protocol Famotidine 20 mg 01/17/21 10:00 01/21/21 09:40 Famotidine 20 Mg Tab PO 20 mg BID ASCENCION Administration Fentanyl 1 applic 01/11/21 14:00 01/20/21 09:49 Fentanyl 50 Mcg/Hr Patch 72hr TD 1 applic Q3D ASCENCION Administration Heparin Sodium (Porcine) 5,000 unit 01/06/21 14:00 01/21/21 06:15 Heparin 5,000 Unit/1 Ml Vial SUB-Q 5,000 unit Q8HR ASCENCION Administration Hydromorphone HCl 0.5 mg 01/12/21 10:10 01/17/21 15:00 Hydromorphone 1 Mg/1 Ml Inj IV 0.5 mg Q4H PRN Administration Pain , Severe (7-10) Hydromorphone HCl 0.25 mg 01/12/21 10:11 01/15/21 15:40 Hydromorphone 1 Mg/1 Ml Inj IV 0.25 mg Q4H PRN Administration Pain, Moderate (4-6) Hydromorphone HCl 1 mg 01/19/21 11:00 01/21/21 10:02 Hydromorphone 1 Mg/1 Ml Inj IV 1 mg Q4H ASCENCION Administration Hydrophilic Ointment 1 applic 12/20/20 21:58 Lip Therapy Vaseline TP Q2HR PRN Dry Lips Propofol 1,000 mg in 100 mls @ 3.606 mls/hr 12/20/20 22:00 01/19/21 15:12 Diprivan 10 Mg/Ml IV 0 mcg/kg/min TITR ASCENCION 0 mls/hr Titration Protocol 5 MCG/KG/MIN Dexmedetomidine HCl 1,000 mcg/ 260 mls @ 7.322 mls/hr 01/15/21 01:00 01/21/21 10:41 Sodium Chloride IV 1.2 mcg/kg/hr TITRATE ASCENCION 43.93 mls/hr Administration Protocol 0.2 MCG/KG/HR Cefepime HCl 2 gm in 100 mls @ 200 mls/hr 01/20/21 12:00 01/21/21 09:39 Cefepime/Ns 2 Gm/100 Ml IV 01/26/21 22:29 200 mls/hr Q12HR ASCENCION Administration Protocol Dextrose 1,000 mls @ 75 mls/hr 01/21/21 12:00 01/21/21 12:54 D5w IV 75 mls/hr DIRECT ASCENCION Administration Insulin Human Regular 0 units 12/28/20 00:00 01/21/21 12:53 Insulin Regular, Human 100 Units/1 Ml SUB-Q Not Given Q6H [facility] Protocol Metoprolol Tartrate 5 mg 01/14/21 13:37 01/15/21 12:42 Metoprolol Tartrate 5 Mg/5 Ml Inj IV 5 mg Q6H PRN Administration SBP >/=160 Multi-Ingred Cream/Lotion/Oil/Oint 1 applic 12/20/20 21:58 01/03/21 01:13 Mineral Oil/Petrolatum, White Ophth Oint 3.5 Gm OU 1 applic Q4HR PRN Administration Dry Eye(s) Quetiapine Fumarate 50 mg 01/19/21 12:00 01/21/21 09:40 Quetiapine 25 Mg Tab PO 50 mg BID ASCENCION Administration Simple Syrup 15 ml 01/07/21 08:44 Simple Syrup 15 Ml FEEDTUBE PRN PRN Hypoglycemia Sodium Bicarbonate 325 mg 01/07/21 08:44 Sodium Bicarbonate 325 Mg Tab FEEDTUBE PRN PRN For Clogged Feeding Tube Sodium Chloride 10 ml 12/20/20 22:00 01/21/21 09:41 Sodium Chloride 0.9% 10 Ml Flush Syringe IV 10 ml BID ASCENCION Administration Sodium Chloride 10 ml 12/20/20 16:42 01/17/21 06:01 Sodium Chloride 0.9% 10 Ml Flush Syringe IV 10 ml PRN PRN Administration LINE FLUSH Nutrition/Malnutrition Assess - Dietary Evaluation Nutrition/Malnutrition Findings: Nutrition Notes Start: 12/21/20 09:06 Freq: Status: Active Protocol: Document 01/19/21 10:29 (Rec: 01/19/21 10:37 [email or web address]) Nutrition Notes Need for Assessment generated from: MD Order Initial or Follow up Reassessment Current Diagnosis Acute Kidney Injury,Coronary Artery Disease,Sepsis, Hypertension,Small Bowel Obstruction,Hyperlipidemia Other Pertinent Diagnosis gangrenous small bowel, s/p small bowel ressection, peritonitis Current Diet Nepro 1.8 at 40 ml/hr Labs/Tests Na 156 K 3.2 BUN 50 Cr 1.6 Mg 1.5 Pertinent Medications 40 mEq K Propofol Height 6 ft Weight 100.3 kg [place] Body Weight (kg) 80.90 BMI 29.9 Weight Status Obese Subjective/Other Information Consult for TF change d/t persistent diarrhea. Pt has been on Dulcolax from 12/30-. Percent of energy/protein needs met: 100%/44% Burn Absent Trauma Absent GI Symptoms Diarrhea Current % PO Negligible Minimum of two criteria No #2 Nutrition Diagnosis Increased nutrient needs ( specify in comment below) Diagnosis Progress(for reassessment Continues documentation) #1 Nutrition Diagnosis Inadequate oral intake Diagnosis Progress(for reassessment Continues documentation) Is patient on ventilator? Yes Is Patient Ambulatory and/or Out of Bed No REE-([facility]-confined to bed) 2231.664 Kcal/Kg value to use for calculation 15 Approximate Energy Requirements Using 1505 kcal/Kg Calculation Used for Recommendations Kcal/kg Additional Notes Pro needs >162g(>2g/kgIBW: 80. 90) Fluid needs per MD. Nutrition Intervention Change Diet Order: Change TF Nutrition Support: Osmolite 1.5 at 50 ml/hr. Flush 200 ml q2h for hypernatermia or per MD. Once resolved, flush 150 ml q4h or per MD. Kcal 1,800 Protein (gm) 75 Fluid (mL) 914 Goal #1 TF tolerance Goal #2 Meet at least 75% of kcal and protein needs via TF Follow-Up By: 01/23/21 Additional Comments FU for TF tolerance, wt and renal labs
[2021-01-22] MEDS: HYDROmorphone 1 MG/1 ML INJ IV SCH ×7 (03:33→23:40)
[2021-01-22] MEDS: DEXTROSE 5% IN WATER 1,000 ML IV SCH ×2 (03:34→16:40)
[2021-01-22] MEDS: INSULIN REGULAR, HUMAN 100 UNITS/1 ML SUB-Q SCH ×4 (06:00→19:26)
[2021-01-22] MEDS: dexmedeTOMIDine 1,000 MCG in SODIUM CHLORIDE 0.9% 250ML 250 ML IV SCH ×3 (06:44→23:40)
[2021-01-22] MEDS: CEFEPIME/NS 2 GM/100 ML 2 GM/100 ML BAG IV SCH ×2 (09:29→21:51)
[2021-01-22] MEDS: QUEtiapine 25 MG TAB PO SCH ×2 (09:29→21:51)
[2021-01-22] MEDS: FAMOTIDINE 20 MG TAB PO SCH ×2 (09:29→21:51)
[2021-01-22] MEDS: FREE WATER PO SCH ×5 (10:27→22:00)
--- NOTE | 2021-01-22 11:10 | Progress Note ---
Assessment and Plan 60 y/o male with abdominal catastrophe, s/p ex-lap with open abdomen, ventilated for pain control and support. 01/22/21: Per CM, patient cannot move until Saturday. Clinically stable. Daily weaning trials. Needs PT/OT. Supportive measures. 01/21/21: Hopeful patient will be transported today and not with [facility]. Continue supportive measures. 01/20/21: No objection to discharge to [facility] today. Suggest continued scheduled pain control to help with weaning. Hopeful patient will not need trach. PT/OT at LTACH. Abx therapy per ID recs. Stable for transfer as he has no hemodynamic instability. 01/19/21: Discussed the patient on rounds with nurse at bedside and then with rest Interdisciplinary team. The persistent fever is bothersome, but it appears that we have a source from this abdominal wound. The ID docs have changed abx therapy to reflect this. Despite the patient having large amounts of urine and scrotal edema, will go ahead and remove the haley as this still could be a potential source for infection and persistent fever. Hemodynamically the patient is stable and we are treating with abx. I have no objection to discharge to LTACH facillity as long as they are comfortable with the transfer. We have restarted the scheduled pain meds to see if this can get him off all continued sedation. Agree with fiber and modification of tube feeds to help with diarrhea. Prognosis remains guarded. 01/18/21: Ok with transfer to [facility]ACH. Spoke with nursing today about removal of vascath and changing of haley. Will be done. Abx per ID. asked TANDEM M[employer] OPERATOR to speak with surgery in regards to wound if any further therapy is needed. Defer to renal in regards to further therapy for electrolytes. 01/17/21: Will discuss renal but most likely vascath should be removed. Abx per ID. Renal has requested the haley stay in for urine output measurement and I agree. Waiting to here from insurer about LTACH as patient will need it for vent recovery and weaning. Monitor BP closely, may need to start replacing fluids 1:1. Will defer to renal on type of fluid given electrolyte imbalances. Prognosis still remains guarded. 01/16/21: Follow up blood cultures from last night. need to send ua as well. Renal holding HD today, hopeful patient is in the diuretic phase of ATN. Will have RT place patient on PSV trial today to see how he does. Hold on abx therapy for right now. If cultures come back positive, will need to remove right IJ vascath which was just placed on Saturday at the suggestion of infection control and infectious days. completed letter for insurance for patient today, hopeful will be LTACH approved soon. 01/13/21: Place IJ vascath today. Added PRN dilaudid on lebron of scheduled dilaudid. Goal is to not put patient back on continuous drip for pain so that we can facilitate weaning. needs peer to peer for LTACH approval. Continue supportive measures. 01/12/21: Patient getting dialysis today. Continue to control pain, added PRN dilauded on top of scheduled dosing as patient still gets very agitated off diprovan. Will discuss with renal plans for future HD as ID and Infection control are very concerned about the groin catheter. If permanent dialysis then will ask that IR place permcath. if they feel intermittent, then will place IJ and remove femoral vascath. 01/11/21: Will increase pain regimen. Scheduled the dilaudid to q4 and add a fent patch. Would like to avoid drip as we are trying to actively wean patient from mechanical ventilation. Spoke with CM who states LTACH has accepted patient but we are waiting on insurance authorization. HgB is stable this am and reviewed surgery and IR recs. I do no think the area of fluid needs to be sampled. 01/10/21: Spoke with surgery this am about CT findings. Will discuss with IR their thoughts on fluid. Not concerned about infection in that area. Main reason for CT was to see if we could figure out where blood was going as it was coming out of his bottom or NG contents. This is appears to be something small and slow, like a venous issues. Hopefully it has sealed off at this time. HgB is up to 8 this am patient did not get blood on yesterday. Off fent now, will continue to wean Diprovan and Precedex as tolerated. Spoke with CM and asked to send out to LTACH's but will steal try to aggressively wean. Making good urine, hopeful kidney's will recover. Will ask renal about other ways to remove volume in third spacing (albumin, lasix etc). Prognosis still remains guarded. Continue TPN for now. 01/09/21: Will obtain contrasted CT of abdomen and pelvis to look for potential pockets of blood or bleeding. Spoke with renal and they feel kidneys are recovering but ok with HD tomorrow if needed post dye load. Will attempt to wean Fent more and use prn dilaudid. Will start reglan to help with gut mo tility. Hopeful to be off TPN soon. Once sedation is off, can start SBT's. CCT 31 minutes. Subjective Date of service: 01/22/21 Principal diagnosis: SBO and necrosis of large part of small intestine Interval history: No acute events. Asleep. Has been tried on PSV yet. Objective Vital Signs - 12hr 01/21/21 01/21/21 01/21/21 23:15 23:31 23:45 Temperature Pulse Rate 97 H 95 H 91 H Pulse Rate [ From Monitor] Respiratory 27 H 24 24 Rate Blood Pressure 128/72 128/72 128/72 O2 Sat by Pulse 99 98 96 Oximetry 01/21/21 01/21/21 01/22/21 23:54 23:55 00:00 Temperature 99 F Pulse Rate 89 89 87 Pulse Rate [ 87 From Monitor] Respiratory 26 H 26 H Rate Blood Pressure 128/72 128/72 109/62 O2 Sat by Pulse 97 98 98 Oximetry 01/22/21 01/22/21 01/22/21 00:01 00:15 00:31 Temperature Pulse Rate 89 88 89 Pulse Rate [ From Monitor] Respiratory 22 31 H 25 H Rate Blood Pressure 109/62 128/72 128/72 O2 Sat by Pulse 98 98 97 Oximetry 01/22/21 01/22/21 01/22/21 00:45 01:00 01:15 Temperature Pulse Rate 86 85 90 Pulse Rate [ From Monitor] Respiratory 24 25 H 27 H Rate Blood Pressure 128/72 113/67 113/67 O2 Sat by Pulse 100 100 100 Oximetry 01/22/21 01/22/21 01/22/21 01:31 01:45 02:00 Temperature Pulse Rate 84 87 85 Pulse Rate [ From Monitor] Respiratory 27 H 29 H 26 H Rate Blood Pressure 109/62 109/62 106/61 O2 Sat by Pulse 100 97 99 Oximetry 01/22/21 01/22/21 01/22/21 02:15 02:31 02:45 Temperature Pulse Rate 87 90 91 H Pulse Rate [ From Monitor] Respiratory 27 H 36 H 21 Rate Blood Pressure 106/61 106/61 106/61 O2 Sat by Pulse 98 100 99 Oximetry 01/22/21 01/22/21 01/22/21 03:00 03:15 03:30 Temperature Pulse Rate 93 H 97 H 98 H Pulse Rate [ From Monitor] Respiratory 24 17 16 Rate Blood Pressure 120/78 120/78 120/78 O2 Sat by Pulse 99 99 100 Oximetry 01/22/21 01/22/21 01/22/21 03:44 03:46 03:49 Temperature 98.3 F Pulse Rate 85 100 H Pulse Rate [ From Monitor] Respiratory 12 Rate Blood Pressure 120/78 O2 Sat by Pulse 97 Oximetry 01/22/21 01/22/21 01/22/21 03:57 04:00 04:16 Temperature Pulse Rate 100 H 99 H 96 H Pulse Rate [ From Monitor] Respiratory 15 23 Rate Blood Pressure 120/78 120/78 106/81 O2 Sat by Pulse 97 96 97 Oximetry 01/22/21 01/22/21 01/22/21 04:30 04:46 05:00 Temperature Pulse Rate 97 H 97 H 96 H Pulse Rate [ From Monitor] Respiratory 11 L 27 H 25 H Rate Blood Pressure 106/81 106/81 106/81 O2 Sat by Pulse 96 96 98 Oximetry 01/22/21 01/22/21 01/22/21 05:15 05:31 05:45 Temperature Pulse Rate 96 H 100 H 106 H Pulse Rate [ From Monitor] Respiratory 29 H 11 L 20 Rate Blood Pressure 106/81 112/66 112/66 O2 Sat by Pulse 98 100 97 Oximetry 01/22/21 01/22/21 01/22/21 06:00 06:15 06:31 Temperature Pulse Rate 105 H 107 H 111 H Pulse Rate [ From Monitor] Respiratory 18 12 18 Rate Blood Pressure 128/68 128/68 128/68 O2 Sat by Pulse 97 100 97 Oximetry 01/22/21 01/22/21 01/22/21 06:45 07:00 07:15 Temperature Pulse Rate 107 H 106 H 108 H Pulse Rate [ From Monitor] Respiratory 18 23 9 L Rate Blood Pressure 128/68 129/72 129/72 O2 Sat by Pulse 100 100 100 Oximetry 01/22/21 01/22/21 01/22/21 07:31 07:45 08:00 Temperature Pulse Rate 110 H 106 H 103 H Pulse Rate [ From Monitor] Respiratory 21 11 L 12 Rate Blood Pressure 129/72 129/72 110/59 O2 Sat by Pulse 100 100 100 Oximetry 01/22/21 08:15 Temperature Pulse Rate 104 H Pulse Rate [ From Monitor] Respiratory 25 H Rate Blood Pressure 110/59 O2 Sat by Pulse 100 Oximetry Constitutional: other (critically ill on ventilator and back on sedation) Eyes: non-icteric ENT: oropharynx moist Neck: supple Effort: normal Ascultation: Bilateral: other (coarse BS bilaterally) Cardiovascular: other (tachy, RR; no mrg) Gastrointestinal: other (abdomen open) Integumentary: normal Extremities: no cyanosis, no edema, pink and warm Neurologic: other (sedated) CBC and BMP: 01/20/21 07:25 01/21/21 08:20 ABG, PT/INR, D-dimer: ABG ABG pH 7.512 (7.320-7.450) H 01/19/21 05:00 POC ABG pCO2 32.5 mmHg (32.0-48.0) 01/19/21 05:00 ABG pCO2 37.9 mm Hg 01/05/21 03:50 POC ABG pO2 47.8 mmHg (83-108) L 01/19/21 05:00 ABG pO2 136.8 mm Hg (80.0-90.0) H 01/05/21 03:50 POC ABG HCO3 25.5 01/19/21 05:00 ABG O2 Saturation 84.4 (0-100) 01/19/21 05:00 PT/INR, D-dimer PT 15.4 Sec. (12.2-14.9) H 01/10/21 04:01 INR 1.17 (0.87-1.13) H 01/10/21 04:01 Abnormal lab findings: Abnormal Labs 12/20/20 12/20/20 12/20/20 13:58 13:58 13:58 WBC 41.1 H* RBC 5.59 H Hgb 16.2 H Hct 47.7 H MCV MCHC RDW 15.5 H Plt Count 486 H Lymph % (Auto) Eos % (Auto) Lymph # (Auto) Eos # (Auto) Seg Neutrophils % Seg Neuts % (Manual) Lymphocytes % (Manual) Seg Neutrophils # Seg Neutrophils # Man Lymphocytes # (Manual) Monocytes # (Manual) PT INR APTT Fibrinogen ABG pH POC ABG pCO2 POC ABG pO2 ABG pO2 ABG Base Excess ABG Hemoglobin ABG Oxyhemoglobin ABG Sodium ABG Potassium ABG Chloride ABG Glucose Carboxyhemoglobin Sodium 130 L Potassium Chloride 80.7 L Carbon Dioxide BUN 37 H Creatinine Glucose 101 H POC Glucose Lactic Acid 3.20 H* Calcium Ionized Calcium Phosphorus Magnesium AST Alkaline Phosphatase 142 H Total Protein 6.2 L Albumin 2.2 L Triglycerides Arterial Blood Glucose Arterial Blood Ionized Calcium Urine WBC (Auto) Urine Creatinine Crossmatch 12/20/20 12/20/20 12/20/20 13:58 20:35 21:30 WBC RBC Hgb Hct MCV MCHC RDW Plt Count Lymph % (Auto) Eos % (Auto) Lymph # (Auto) Eos # (Auto) Seg Neutrophils % Seg Neuts % (Manual) Lymphocytes % (Manual) Seg Neutrophils # Seg Neutrophils # Man Lymphocytes # (Manual) Monocytes # (Manual) PT INR APTT 49.4 H Fibrinogen ABG pH 7.313 L POC ABG pCO2 POC ABG pO2 ABG pO2 104.4 H ABG Base Excess ABG Hemoglobin ABG Oxyhemoglobin ABG Sodium ABG Potassium ABG Chloride ABG Glucose Carboxyhemoglobin Sodium Potassium Chloride Carbon Dioxide BUN Creatinine Glucose POC Glucose 122 H Lactic Acid Calcium Ionized Calcium Phosphorus Magnesium AST Alkaline Phosphatase Total Protein Albumin Triglycerides Arterial Blood Glucose Arterial Blood Ionized Calcium Urine WBC (Auto) Urine Creatinine Crossmatch 12/21/20 12/21/20 12/21/20 03:06 08:14 08:14 WBC 23.9 H RBC Hgb Hct MCV MCHC RDW 15.7 H Plt Count Lymph % (Auto) Eos % (Auto) Lymph # (Auto) Eos # (Auto) Seg Neutrophils % Seg Neuts % (Manual) 91.0 H Lymphocytes % (Manual) 3.0 L Seg Neutrophils # Seg Neutrophils # Man 21.7 H Lymphocytes # (Manual) 0.7 L Monocytes # (Manual) 1.4 H PT INR APTT Fibrinogen ABG pH 7.464 H POC ABG pCO2 POC ABG pO2 202.9 H ABG pO2 ABG Base Excess ABG Hemoglobin ABG Oxyhemoglobin ABG Sodium 133.7 L ABG Potassium ABG Chloride ABG Glucose 122 H Carboxyhemoglobin Sodium Potassium Chloride Carbon Dioxide BUN 46 H Creatinine Glucose 103 H POC Glucose Lactic Acid Calcium 6.6 L D Ionized Calcium Phosphorus Magnesium AST Alkaline Phosphatase Total Protein 5.4 L Albumin 2.3 L Triglycerides Arterial Blood Glucose 122 H Arterial Blood Ionized Calcium 3.5 L Urine WBC (Auto) Urine Creatinine Crossmatch 12/21/20 12/21/20 12/22/20 17:18 21:28 04:45 WBC 22.9 H RBC Hgb Hct MCV MCHC RDW 15.7 H Plt Count Lymph % (Auto) Eos % (Auto) Lymph # (Auto) Eos # (Auto) Seg Neutrophils % Seg Neuts % (Manual) Lymphocytes % (Manual) Seg Neutrophils # Seg Neutrophils # Man Lymphocytes # (Manual) Monocytes # (Manual) PT INR APTT Fibrinogen ABG pH POC ABG pCO2 POC ABG pO2 ABG pO2 ABG Base Excess ABG Hemoglobin ABG Oxyhemoglobin ABG Sodium ABG Potassium ABG Chloride ABG Glucose Carboxyhemoglobin Sodium Potassium Chloride Carbon Dioxide BUN Creatinine Glucose POC Glucose 108 H Lactic Acid Calcium Ionized Calcium 4.1 L Phosphorus Magnesium AST Alkaline Phosphatase Total Protein Albumin Triglycerides Arterial Blood Glucose Arterial Blood Ionized Calcium Urine WBC (Auto) Urine Creatinine Crossmatch 12/22/20 12/22/20 12/22/20 04:45 05:00 11:38 WBC RBC Hgb Hct MCV MCHC RDW Plt Count Lymph % (Auto) Eos % (Auto) Lymph # (Auto) Eos # (Auto) Seg Neutrophils % Seg Neuts % (Manual) Lymphocytes % (Manual) Seg Neutrophils # Seg Neutrophils # Man Lymphocytes # (Manual) Monocytes # (Manual) PT INR APTT Fibrinogen ABG pH 7.462 H POC ABG pCO2 POC ABG pO2 ABG pO2 ABG Base Excess ABG Hemoglobin ABG Oxyhemoglobin ABG Sodium ABG Potassium ABG Chloride ABG Glucose 118 H Carboxyhemoglobin Sodium 146 H Potassium Chloride Carbon Dioxide BUN 45 H Creatinine Glucose 116 H POC Glucose 115 H Lactic Acid Calcium 6.9 L Ionized Calcium Phosphorus Magnesium AST Alkaline Phosphatase Total Protein Albumin Triglycerides Arterial Blood Glucose 118 H Arterial Blood Ionized Calcium 3.8 L Urine WBC (Auto) Urine Creatinine Crossmatch 12/22/20 12/23/20 12/23/20 23:26 04:43 04:45 WBC 22.2 H RBC Hgb Hct MCV MCHC RDW 16.1 H Plt Count Lymph % (Auto) Eos % (Auto) Lymph # (Auto) Eos # (Auto) Seg Neutrophils % Seg Neuts % (Manual) Lymphocytes % (Manual) Seg Neutrophils # Seg Neutrophils # Man Lymphocytes # (Manual) Monocytes # (Manual) PT INR APTT Fibrinogen ABG pH POC ABG pCO2 POC ABG pO2 ABG pO2 ABG Base Excess ABG Hemoglobin ABG Oxyhemoglobin ABG Sodium 147.4 H ABG Potassium ABG Chloride 112.0 H ABG Glucose 130 H Carboxyhemoglobin 0.4 L Sodium Potassium Chloride Carbon Dioxide BUN Creatinine Glucose POC Glucose 110 H Lactic Acid Calcium Ionized Calcium Phosphorus Magnesium AST Alkaline Phosphatase Total Protein Albumin Triglycerides Arterial Blood Glucose 130 H Arterial Blood Ionized Calcium 3.8 L Urine WBC (Auto) Urine Creatinine Crossmatch 12/23/20 12/23/20 12/23/20 04:45 05:17 11:22 WBC RBC Hgb Hct MCV MCHC RDW Plt Count Lymph % (Auto) Eos % (Auto) Lymph # (Auto) Eos # (Auto) Seg Neutrophils % Seg Neuts % (Manual) Lymphocytes % (Manual) Seg Neutrophils # Seg Neutrophils # Man Lymphocytes # (Manual) Monocytes # (Manual) PT INR APTT Fibrinogen ABG pH POC ABG pCO2 POC ABG pO2 ABG pO2 ABG Base Excess ABG Hemoglobin ABG Oxyhemoglobin ABG Sodium ABG Potassium ABG Chloride ABG Glucose Carboxyhemoglobin Sodium 154 H D Potassium Chloride 110.9 H Carbon Dioxide BUN 54 H Creatinine 1.8 H Glucose 115 H POC Glucose 116 H 130 H Lactic Acid Calcium 7.0 L Ionized Calcium Phosphorus Magnesium AST Alkaline Phosphatase Total Protein Albumin Triglycerides Arterial Blood Glucose Arterial Blood Ionized Calcium Urine WBC (Auto) Urine Creatinine Crossmatch 12/23/20 12/23/20 12/23/20 12:15 12:15 23:15 WBC RBC Hgb Hct MCV MCHC RDW Plt Count Lymph % (Auto) Eos % (Auto) Lymph # (Auto) Eos # (Auto) Seg Neutrophils % Seg Neuts % (Manual) Lymphocytes % (Manual) Seg Neutrophils # Seg Neutrophils # Man Lymphocytes # (Manual) Monocytes # (Manual) PT INR APTT Fibrinogen ABG pH POC ABG pCO2 POC ABG pO2 ABG pO2 ABG Base Excess ABG Hemoglobin ABG Oxyhemoglobin ABG Sodium ABG Potassium ABG Chloride ABG Glucose Carboxyhemoglobin Sodium 154 H Potassium Chloride Carbon Dioxide BUN Creatinine 1.5 H Glucose POC Glucose 132 H Lactic Acid Calcium Ionized Calcium Phosphorus Magnesium AST Alkaline Phosphatase Total Protein Albumin Triglycerides Arterial Blood Glucose Arterial Blood Ionized Calcium Urine WBC (Auto) Urine Creatinine 78.1 H Crossmatch 12/24/20 12/24/20 12/24/20 04:19 04:30 04:30 WBC 18.3 H RBC Hgb Hct MCV MCHC RDW 16.5 H Plt Count Lymph % (Auto) Eos % (Auto) Lymph # (Auto) Eos # (Auto) Seg Neutrophils % Seg Neuts % (Manual) Lymphocytes % (Manual) Seg Neutrophils # Seg Neutrophils # Man Lymphocytes # (Manual) Monocytes # (Manual) PT INR APTT Fibrinogen ABG pH POC ABG pCO2 POC ABG pO2 ABG pO2 ABG Base Excess ABG Hemoglobin ABG Oxyhemoglobin ABG Sodium 149.7 H ABG Potassium ABG Chloride 116.0 H ABG Glucose 180 H Carboxyhemoglobin Sodium 155 H Potassium Chloride 116.1 H Carbon Dioxide BUN 52 H Creatinine 1.5 H Glucose 175 H POC Glucose Lactic Acid Calcium 6.8 L Ionized Calcium Phosphorus Magnesium 3.00 H AST Alkaline Phosphatase Total Protein 5.7 L Albumin 1.8 L Triglycerides Arterial Blood Glucose 180 H Arterial Blood Ionized Calcium 3.7 L Urine WBC (Auto) Urine Creatinine Crossmatch 12/24/20 12/24/20 12/24/20 05:24 11:21 18:05 WBC RBC Hgb Hct MCV MCHC RDW Plt Count Lymph % (Auto) Eos % (Auto) Lymph # (Auto) Eos # (Auto) Seg Neutrophils % Seg Neuts % (Manual) Lymphocytes % (Manual) Seg Neutrophils # Seg Neutrophils # Man Lymphocytes # (Manual) Monocytes # (Manual) PT INR APTT Fibrinogen ABG pH POC ABG pCO2 POC ABG pO2 ABG pO2 ABG Base Excess ABG Hemoglobin ABG Oxyhemoglobin ABG Sodium ABG Potassium ABG Chloride ABG Glucose Carboxyhemoglobin Sodium Potassium Chloride Carbon Dioxide BUN Creatinine Glucose POC Glucose 153 H 154 H 133 H Lactic Acid Calcium Ionized Calcium Phosphorus Magnesium AST Alkaline Phosphatase Total Protein Albumin Triglycerides Arterial Blood Glucose Arterial Blood Ionized Calcium Urine WBC (Auto) Urine Creatinine Crossmatch 12/25/20 12/25/20 12/25/20 04:00 07:00 07:00 WBC 17.6 H RBC Hgb Hct MCV MCHC 31 L RDW 16.0 H Plt Count Lymph % (Auto) Eos % (Auto) Lymph # (Auto) Eos # (Auto) Seg Neutrophils % Seg Neuts % (Manual) Lymphocytes % (Manual) Seg Neutrophils # Seg Neutrophils # Man Lymphocytes # (Manual) Monocytes # (Manual) PT INR APTT Fibrinogen ABG pH POC ABG pCO2 POC ABG pO2 ABG pO2 ABG Base Excess ABG Hemoglobin ABG Oxyhemoglobin ABG Sodium 152.5 H ABG Potassium ABG Chloride 119.0 H ABG Glucose 136 H Carboxyhemoglobin Sodium Potassium Chloride Carbon Dioxide BUN Creatinine Glucose POC Glucose Lactic Acid Calcium Ionized Calcium Phosphorus Magnesium 2.70 H AST Alkaline Phosphatase Total Protein Albumin Triglycerides Arterial Blood Glucose 136 H Arterial Blood Ionized Calcium 3.7 L Urine WBC (Auto) Urine Creatinine Crossmatch 12/25/20 12/25/20 12/25/20 07:00 11:24 16:32 WBC RBC Hgb Hct MCV MCHC RDW Plt Count Lymph % (Auto) Eos % (Auto) Lymph # (Auto) Eos # (Auto) Seg Neutrophils % Seg Neuts % (Manual) Lymphocytes % (Manual) Seg Neutrophils # Seg Neutrophils # Man Lymphocytes # (Manual) Monocytes # (Manual) PT INR APTT Fibrinogen ABG pH POC ABG pCO2 POC ABG pO2 ABG pO2 ABG Base Excess ABG Hemoglobin ABG Oxyhemoglobin ABG Sodium ABG Potassium ABG Chloride ABG Glucose Carboxyhemoglobin Sodium 156 H Potassium Chloride 118.0 H Carbon Dioxide BUN 44 H Creatinine 1.7 H Glucose 126 H POC Glucose 110 H 126 H Lactic Acid Calcium 6.9 L Ionized Calcium Phosphorus Magnesium AST Alkaline Phosphatase Total Protein Albumin Triglycerides Arterial Blood Glucose Arterial Blood Ionized Calcium Urine WBC (Auto) Urine Creatinine Crossmatch 12/25/20 12/25/20 12/26/20 18:18 23:23 03:30 WBC RBC Hgb Hct MCV MCHC RDW Plt Count Lymph % (Auto) Eos % (Auto) Lymph # (Auto) Eos # (Auto) Seg Neutrophils % Seg Neuts % (Manual) Lymphocytes % (Manual) Seg Neutrophils # Seg Neutrophils # Man Lymphocytes # (Manual) Monocytes # (Manual) PT INR APTT Fibrinogen ABG pH POC ABG pCO2 POC ABG pO2 ABG pO2 ABG Base Excess ABG Hemoglobin 11.8 L ABG Oxyhemoglobin ABG Sodium ABG Potassium 4.7 H ABG Chloride 114.0 H ABG Glucose 132 H Carboxyhemoglobin Sodium 151 H Potassium Chloride 114.3 H Carbon Dioxide BUN 51 H Creatinine 2.6 H D Glucose 122 H POC Glucose 115 H Lactic Acid Calcium 6.4 L Ionized Calcium Phosphorus Magnesium AST Alkaline Phosphatase Total Protein Albumin Triglycerides Arterial Blood Glucose 132 H Arterial Blood Ionized Calcium 3.6 L Urine WBC (Auto) Urine Creatinine Crossmatch 12/26/20 12/26/20 12/26/20 04:55 06:01 06:01 WBC 21.6 H RBC Hgb Hct MCV MCHC 31 L RDW 16.5 H Plt Count 136 L Lymph % (Auto) Eos % (Auto) Lymph # (Auto) Eos # (Auto) Seg Neutrophils % Seg Neuts % (Manual) Lymphocytes % (Manual) Seg Neutrophils # Seg Neutrophils # Man Lymphocytes # (Manual) Monocytes # (Manual) PT INR APTT Fibrinogen ABG pH POC ABG pCO2 POC ABG pO2 ABG pO2 ABG Base Excess ABG Hemoglobin ABG Oxyhemoglobin ABG Sodium ABG Potassium ABG Chloride ABG Glucose Carboxyhemoglobin Sodium 173 H* D Potassium 6.1 H* D Chloride 137.0 H Carbon Dioxide BUN 73 H Creatinine 3.8 H Glucose 125 H POC Glucose 112 H Lactic Acid Calcium 6.2 L Ionized Calcium Phosphorus 5.70 H D Magnesium 2.90 H AST Alkaline Phosphatase Total Protein Albumin Triglycerides Arterial Blood Glucose Arterial Blood Ionized Calcium Urine WBC (Auto) Urine Creatinine Crossmatch 12/26/20 12/26/20 12/26/20 08:33 11:19 22:00 WBC RBC Hgb Hct MCV MCHC RDW Plt Count Lymph % (Auto) Eos % (Auto) Lymph # (Auto) Eos # (Auto) Seg Neutrophils % Seg Neuts % (Manual) Lymphocytes % (Manual) Seg Neutrophils # Seg Neutrophils # Man Lymphocytes # (Manual) Monocytes # (Manual) PT INR APTT Fibrinogen ABG pH POC ABG pCO2 POC ABG pO2 ABG pO2 ABG Base Excess ABG Hemoglobin ABG Oxyhemoglobin ABG Sodium ABG Potassium ABG Chloride ABG Glucose Carboxyhemoglobin Sodium 147 H D Potassium 5.8 H D Chloride 108.8 H Carbon Dioxide 21 L BUN 68 H 68 H Creatinine 3.8 H 4.1 H Glucose 144 H 154 H POC Glucose 144 H Lactic Acid Calcium 6.5 L 5.8 L* Ionized Calcium Phosphorus Magnesium AST 215 H Alkaline Phosphatase Total Protein 4.7 L Albumin 1.5 L Triglycerides Arterial Blood Glucose Arterial Blood Ionized Calcium Urine WBC (Auto) Urine Creatinine Crossmatch 12/26/20 12/26/20 12/27/20 23:13 Unknown 00:25 WBC RBC Hgb 11.1 L Hct MCV MCHC RDW Plt Count Lymph % (Auto) Eos % (Auto) Lymph # (Auto) Eos # (Auto) Seg Neutrophils % Seg Neuts % (Manual) Lymphocytes % (Manual) Seg Neutrophils # Seg Neutrophils # Man Lymphocytes # (Manual) Monocytes # (Manual) PT INR APTT Fibrinogen ABG pH POC ABG pCO2 POC ABG pO2 ABG pO2 ABG Base Excess ABG Hemoglobin ABG Oxyhemoglobin ABG Sodium ABG Potassium ABG Chloride ABG Glucose Carboxyhemoglobin Sodium Potassium Chloride Carbon Dioxide BUN Creatinine Glucose POC Glucose 163 H Lactic Acid Calcium Ionized Calcium Phosphorus 5.60 H Magnesium AST Alkaline Phosphatase Total Protein Albumin Triglycerides Arterial Blood Glucose Arterial Blood Ionized Calcium Urine WBC (Auto) Urine Creatinine Crossmatch 12/27/20 12/27/20 12/27/20 02:57 04:15 04:15 WBC 28.5 H RBC Hgb 11.2 L Hct MCV MCHC 31 L RDW 16.5 H Plt Count 130 L Lymph % (Auto) Eos % (Auto) Lymph # (Auto) Eos # (Auto) Seg Neutrophils % Seg Neuts % (Manual) Lymphocytes % (Manual) Seg Neutrophils # Seg Neutrophils # Man Lymphocytes # (Manual) Monocytes # (Manual) PT INR APTT Fibrinogen ABG pH 7.238 L POC ABG pCO2 POC ABG pO2 139.1 H ABG pO2 ABG Base Excess ABG Hemoglobin 11.2 L ABG Oxyhemoglobin ABG Sodium 133.8 L ABG Potassium 5.2 H ABG Chloride ABG Glucose 182 H Carboxyhemoglobin Sodium 136 L Potassium 6.0 H Chloride Carbon Dioxide 18 L BUN 68 H Creatinine 4.1 H Glucose 166 H POC Glucose Lactic Acid Calcium 6.2 L Ionized Calcium Phosphorus 7.30 H D Magnesium AST Alkaline Phosphatase Total Protein Albumin Triglycerides 164 H Arterial Blood Glucose 182 H Arterial Blood Ionized Calcium 3.4 L Urine WBC (Auto) Urine Creatinine Crossmatch 12/27/20 12/27/20 12/27/20 04:50 10:51 11:17 WBC RBC Hgb Hct MCV MCHC RDW Plt Count Lymph % (Auto) Eos % (Auto) Lymph # (Auto) Eos # (Auto) Seg Neutrophils % Seg Neuts % (Manual) Lymphocytes % (Manual) Seg Neutrophils # Seg Neutrophils # Man Lymphocytes # (Manual) Monocytes # (Manual) PT INR APTT Fibrinogen ABG pH POC ABG pCO2 POC ABG pO2 ABG pO2 ABG Base Excess ABG Hemoglobin ABG Oxyhemoglobin ABG Sodium ABG Potassium ABG Chloride ABG Glucose Carboxyhemoglobin Sodium Potassium Chloride Carbon Dioxide BUN Creatinine Glucose POC Glucose 140 H 113 H 154 H Lactic Acid Calcium Ionized Calcium Phosphorus Magnesium AST Alkaline Phosphatase Total Protein Albumin Triglycerides Arterial Blood Glucose Arterial Blood Ionized Calcium Urine WBC (Auto) Urine Creatinine Crossmatch 12/27/20 12/27/20 12/27/20 12:40 14:40 23:17 WBC RBC Hgb Hct MCV MCHC RDW Plt Count Lymph % (Auto) Eos % (Auto) Lymph # (Auto) Eos # (Auto) Seg Neutrophils % Seg Neuts % (Manual) Lymphocytes % (Manual) Seg Neutrophils # Seg Neutrophils # Man Lymphocytes # (Manual) Monocytes # (Manual) PT INR APTT Fibrinogen ABG pH POC ABG pCO2 POC ABG pO2 ABG pO2 ABG Base Excess ABG Hemoglobin ABG Oxyhemoglobin ABG Sodium ABG Potassium ABG Chloride ABG Glucose Carboxyhemoglobin Sodium 135 L Potassium Chloride Carbon Dioxide 21 L BUN 62 H Creatinine 3.8 H Glucose 132 H POC Glucose 130 H Lactic Acid Calcium 5.6 L* Ionized Calcium 3.3 L Phosphorus Magnesium AST Alkaline Phosphatase Total Protein Albumin Triglycerides Arterial Blood Glucose Arterial Blood Ionized Calcium Urine WBC (Auto) Urine Creatinine Crossmatch 12/28/20 12/28/20 12/28/20 05:36 07:08 07:28 WBC 27.2 H RBC 3.50 L Hgb 9.6 L Hct 30.8 L MCV MCHC 31 L RDW 16.1 H Plt Count 111 L Lymph % (Auto) Eos % (Auto) Lymph # (Auto) Eos # (Auto) Seg Neutrophils % Seg Neuts % (Manual) 95.0 H Lymphocytes % (Manual) Seg Neutrophils # Seg Neutrophils # Man 25.8 H Lymphocytes # (Manual) 0.0 L Monocytes # (Manual) 1.1 H PT INR APTT Fibrinogen ABG pH 7.200 L POC ABG pCO2 POC ABG pO2 67.2 L ABG pO2 ABG Base Excess ABG Hemoglobin 10.3 L ABG Oxyhemoglobin 89.6 L ABG Sodium 127.8 L ABG Potassium 5.1 H ABG Chloride ABG Glucose 132 H Carboxyhemoglobin 0.4 L Sodium Potassium Chloride Carbon Dioxide BUN Creatinine Glucose POC Glucose 128 H Lactic Acid Calcium Ionized Calcium Phosphorus Magnesium AST Alkaline Phosphatase Total Protein Albumin Triglycerides Arterial Blood Glucose 132 H Arterial Blood Ionized Calcium 3.5 L Urine WBC (Auto) Urine Creatinine Crossmatch 12/28/20 12/28/20 12/28/20 07:28 11:37 13:25 WBC RBC Hgb Hct MCV MCHC RDW Plt Count Lymph % (Auto) Eos % (Auto) Lymph # (Auto) Eos # (Auto) Seg Neutrophils % Seg Neuts % (Manual) Lymphocytes % (Manual) Seg Neutrophils # Seg Neutrophils # Man Lymphocytes # (Manual) Monocytes # (Manual) PT INR APTT Fibrinogen ABG pH POC ABG pCO2 POC ABG pO2 ABG pO2 ABG Base Excess ABG Hemoglobin ABG Oxyhemoglobin ABG Sodium ABG Potassium ABG Chloride ABG Glucose Carboxyhemoglobin Sodium 131 L 133 L Potassium 5.9 H 5.1 H Chloride 97.1 L Carbon Dioxide 15 L 21 L BUN 70 H 77 H Creatinine 4.0 H 4.4 H Glucose 118 H 140 H POC Glucose 135 H Lactic Acid Calcium 6.3 L 6.3 L Ionized Calcium Phosphorus 7.10 H Magnesium AST 144 H Alkaline Phosphatase Total Protein 4.8 L Albumin 1.3 L Triglycerides Arterial Blood Glucose Arterial Blood Ionized Calcium Urine WBC (Auto) Urine Creatinine Crossmatch 12/28/20 12/28/20 12/29/20 16:38 23:28 03:08 WBC RBC Hgb Hct MCV MCHC RDW Plt Count Lymph % (Auto) Eos % (Auto) Lymph # (Auto) Eos # (Auto) Seg Neutrophils % Seg Neuts % (Manual) Lymphocytes % (Manual) Seg Neutrophils # Seg Neutrophils # Man Lymphocytes # (Manual) Monocytes # (Manual) PT INR APTT Fibrinogen ABG pH 7.301 L POC ABG pCO2 POC ABG pO2 151.1 H ABG pO2 ABG Base Excess ABG Hemoglobin 8.7 L ABG Oxyhemoglobin 98.2 H ABG Sodium 123.4 L ABG Potassium ABG Chloride 97.0 L ABG Glucose 144 H Carboxyhemoglobin Sodium Potassium Chloride Carbon Dioxide BUN Creatinine Glucose POC Glucose 140 H 134 H Lactic Acid Calcium Ionized Calcium Phosphorus Magnesium AST Alkaline Phosphatase Total Protein Albumin Triglycerides Arterial Blood Glucose 144 H Arterial Blood Ionized Calcium 3.4 L Urine WBC (Auto) Urine Creatinine Crossmatch 12/29/20 12/29/20 12/29/20 05:20 05:20 06:01 WBC 21.0 H RBC 2.89 L Hgb 8.1 L Hct 25.5 L MCV MCHC RDW 16.1 H Plt Count 124 L Lymph % (Auto) Eos % (Auto) Lymph # (Auto) Eos # (Auto) Seg Neutrophils % Seg Neuts % (Manual) Lymphocytes % (Manual) Seg Neutrophils # Seg Neutrophils # Man Lymphocytes # (Manual) Monocytes # (Manual) PT INR APTT Fibrinogen ABG pH POC ABG pCO2 POC ABG pO2 ABG pO2 ABG Base Excess ABG Hemoglobin ABG Oxyhemoglobin ABG Sodium ABG Potassium ABG Chloride ABG Glucose Carboxyhemoglobin Sodium 131 L Potassium Chloride 93.4 L Carbon Dioxide BUN 79 H Creatinine 4.7 H Glucose 122 H POC Glucose 108 H Lactic Acid Calcium 5.5 L* Ionized Calcium Phosphorus 5.70 H Magnesium 1.60 L AST Alkaline Phosphatase Total Protein Albumin Triglycerides Arterial Blood Glucose Arterial Blood Ionized Calcium Urine WBC (Auto) Urine Creatinine Crossmatch 12/29/20 12/29/20 12/29/20 10:04 11:27 17:31 WBC RBC Hgb Hct MCV MCHC RDW Plt Count Lymph % (Auto) Eos % (Auto) Lymph # (Auto) Eos # (Auto) Seg Neutrophils % Seg Neuts % (Manual) Lymphocytes % (Manual) Seg Neutrophils # Seg Neutrophils # Man Lymphocytes # (Manual) Monocytes # (Manual) PT INR APTT Fibrinogen ABG pH POC ABG pCO2 POC ABG pO2 ABG pO2 ABG Base Excess ABG Hemoglobin ABG Oxyhemoglobin ABG Sodium ABG Potassium ABG Chloride ABG Glucose Carboxyhemoglobin Sodium Potassium Chloride Carbon Dioxide BUN Creatinine Glucose POC Glucose 107 H 112 H 110 H Lactic Acid Calcium Ionized Calcium Phosphorus Magnesium AST Alkaline Phosphatase Total Protein Albumin Triglycerides Arterial Blood Glucose Arterial Blood Ionized Calcium Urine WBC (Auto) Urine Creatinine Crossmatch 12/30/20 12/30/20 12/30/20 03:31 08:06 17:39 WBC RBC Hgb Hct MCV MCHC RDW Plt Count Lymph % (Auto) Eos % (Auto) Lymph # (Auto) Eos # (Auto) Seg Neutrophils % Seg Neuts % (Manual) Lymphocytes % (Manual) Seg Neutrophils # Seg Neutrophils # Man Lymphocytes # (Manual) Monocytes # (Manual) PT INR APTT Fibrinogen ABG pH 7.261 L POC ABG pCO2 POC ABG pO2 123.1 H ABG pO2 ABG Base Excess ABG Hemoglobin 8.7 L ABG Oxyhemoglobin ABG Sodium 123.2 L ABG Potassium ABG Chloride 96.0 L ABG Glucose 112 H Carboxyhemoglobin Sodium 128 L Potassium Chloride 90.7 L Carbon Dioxide 21 L BUN 86 H Creatinine 4.9 H Glucose 107 H POC Glucose 134 H Lactic Acid Calcium 6.2 L Ionized Calcium Phosphorus 5.30 H Magnesium 1.50 L AST Alkaline Phosphatase Total Protein Albumin Triglycerides Arterial Blood Glucose 112 H Arterial Blood Ionized Calcium 3.2 L Urine WBC (Auto) Urine Creatinine Crossmatch 12/30/20 12/31/20 12/31/20 22:45 02:14 04:40 WBC RBC Hgb Hct MCV MCHC RDW Plt Count Lymph % (Auto) Eos % (Auto) Lymph # (Auto) Eos # (Auto) Seg Neutrophils % Seg Neuts % (Manual) Lymphocytes % (Manual) Seg Neutrophils # Seg Neutrophils # Man Lymphocytes # (Manual) Monocytes # (Manual) PT INR APTT Fibrinogen ABG pH 7.267 L POC ABG pCO2 POC ABG pO2 ABG pO2 ABG Base Excess ABG Hemoglobin 8.0 L ABG Oxyhemoglobin 93.7 L ABG Sodium ABG Potassium ABG Chloride 95.0 L ABG Glucose 108 H Carboxyhemoglobin 1.7 H Sodium 126 L Potassium Chloride 90.3 L Carbon Dioxide 20 L BUN 70 H Creatinine 4.3 H Glucose 209 H POC Glucose 109 H Lactic Acid Calcium 6.6 L Ionized Calcium Phosphorus 4.70 H Magnesium 1.60 L AST Alkaline Phosphatase Total Protein Albumin Triglycerides 157 H Arterial Blood Glucose 108 H Arterial Blood Ionized Calcium 3.7 L Urine WBC (Auto) Urine Creatinine Crossmatch 12/31/20 12/31/20 01/01/21 16:23 23:21 04:00 WBC 18.0 H RBC 2.75 L Hgb 7.7 L Hct 23.9 L MCV MCHC RDW 15.6 H Plt Count Lymph % (Auto) Eos % (Auto) Lymph # (Auto) Eos # (Auto) Seg Neutrophils % Seg Neuts % (Manual) 91.0 H Lymphocytes % (Manual) 6.0 L Seg Neutrophils # Seg Neutrophils # Man 16.4 H Lymphocytes # (Manual) 1.1 L Monocytes # (Manual) PT INR APTT Fibrinogen ABG pH 7.264 L POC ABG pCO2 POC ABG pO2 74.8 L ABG pO2 ABG Base Excess ABG Hemoglobin 7.1 L ABG Oxyhemoglobin 92.1 L ABG Sodium 124.9 L ABG Potassium ABG Chloride 95.0 L ABG Glucose 111 H Carboxyhemoglobin 1.7 H Sodium Potassium Chloride Carbon Dioxide BUN Creatinine Glucose POC Glucose 125 H Lactic Acid Calcium Ionized Calcium Phosphorus Magnesium AST Alkaline Phosphatase Total Protein Albumin Triglycerides Arterial Blood Glucose 111 H Arterial Blood Ionized Calcium 4.0 L Urine WBC (Auto) Urine Creatinine Crossmatch 01/01/21 01/01/21 01/01/21 05:50 13:41 15:55 WBC RBC Hgb Hct MCV MCHC RDW Plt Count Lymph % (Auto) Eos % (Auto) Lymph # (Auto) Eos # (Auto) Seg Neutrophils % Seg Neuts % (Manual) Lymphocytes % (Manual) Seg Neutrophils # Seg Neutrophils # Man Lymphocytes # (Manual) Monocytes # (Manual) PT INR APTT Fibrinogen ABG pH 7.148 L 7.207 L POC ABG pCO2 53.1 H POC ABG pO2 57.3 L 138.4 H ABG pO2 ABG Base Excess ABG Hemoglobin 9.0 L 8.3 L ABG Oxyhemoglobin 83.2 L ABG Sodium 126.2 L 124.5 L ABG Potassium ABG Chloride 95.0 L 95.0 L ABG Glucose 96 H 120 H Carboxyhemoglobin Sodium 131 L Potassium Chloride 93.3 L Carbon Dioxide 21 L BUN 67 H Creatinine 4.2 H Glucose POC Glucose Lactic Acid Calcium 7.1 L Ionized Calcium Phosphorus Magnesium AST 60 H Alkaline Phosphatase Total Protein 4.8 L Albumin 1.4 L Triglycerides Arterial Blood Glucose 96 H 120 H Arterial Blood Ionized Calcium 4.1 L 3.9 L Urine WBC (Auto) Urine Creatinine Crossmatch 01/01/21 01/01/21 01/02/21 17:09 23:24 03:47 WBC RBC Hgb Hct MCV MCHC RDW Plt Count Lymph % (Auto) Eos % (Auto) Lymph # (Auto) Eos # (Auto) Seg Neutrophils % Seg Neuts % (Manual) Lymphocytes % (Manual) Seg Neutrophils # Seg Neutrophils # Man Lymphocytes # (Manual) Monocytes # (Manual) PT INR APTT Fibrinogen ABG pH 7.276 L POC ABG pCO2 POC ABG pO2 173.6 H ABG pO2 ABG Base Excess ABG Hemoglobin 7 L ABG Oxyhemoglobin ABG Sodium 122.4 L ABG Potassium ABG Chloride 94.0 L ABG Glucose 118 H Carboxyhemoglobin Sodium Potassium Chloride Carbon Dioxide BUN Creatinine Glucose POC Glucose 124 H 119 H Lactic Acid Calcium Ionized Calcium Phosphorus Magnesium AST Alkaline Phosphatase Total Protein Albumin Triglycerides Arterial Blood Glucose 118 H Arterial Blood Ionized Calcium 4.0 L Urine WBC (Auto) Urine Creatinine Crossmatch 01/02/21 01/02/21 01/02/21 05:33 08:00 08:00 WBC 19.7 H RBC 2.53 L Hgb 7.1 L Hct 22.0 L MCV MCHC RDW 16.4 H Plt Count Lymph % (Auto) Eos % (Auto) Lymph # (Auto) Eos # (Auto) Seg Neutrophils % Seg Neuts % (Manual) Lymphocytes % (Manual) Seg Neutrophils # Seg Neutrophils # Man Lymphocytes # (Manual) Monocytes # (Manual) PT INR APTT Fibrinogen ABG pH POC ABG pCO2 POC ABG pO2 ABG pO2 ABG Base Excess ABG Hemoglobin ABG Oxyhemoglobin ABG Sodium ABG Potassium ABG Chloride ABG Glucose Carboxyhemoglobin Sodium 127 L Potassium Chloride 89.3 L Carbon Dioxide 19 L BUN 82 H Creatinine 5.0 H Glucose 103 H POC Glucose 107 H Lactic Acid Calcium 7.8 L Ionized Calcium Phosphorus 6.40 H Magnesium AST 47 H Alkaline Phosphatase Total Protein 5.0 L Albumin 1.6 L Triglycerides Arterial Blood Glucose Arterial Blood Ionized Calcium Urine WBC (Auto) Urine Creatinine Crossmatch 01/02/21 01/03/21 01/03/21 17:25 07:56 09:47 WBC 17.7 H RBC 2.19 L Hgb 6.2 L Hct 18.5 L* MCV MCHC RDW 16.1 H Plt Count Lymph % (Auto) Eos % (Auto) Lymph # (Auto) Eos # (Auto) Seg Neutrophils % Seg Neuts % (Manual) Lymphocytes % (Manual) Seg Neutrophils # Seg Neutrophils # Man Lymphocytes # (Manual) Monocytes # (Manual) PT INR APTT Fibrinogen ABG pH POC ABG pCO2 POC ABG pO2 ABG pO2 ABG Base Excess ABG Hemoglobin ABG Oxyhemoglobin ABG Sodium ABG Potassium ABG Chloride ABG Glucose Carboxyhemoglobin Sodium 130 L Potassium 3.5 L Chloride 90.3 L Carbon Dioxide BUN 68 H Creatinine 3.9 H Glucose 103 H POC Glucose 116 H Lactic Acid Calcium 8.0 L Ionized Calcium Phosphorus 4.80 H D Magnesium AST Alkaline Phosphatase Total Protein Albumin Triglycerides Arterial Blood Glucose Arterial Blood Ionized Calcium Urine WBC (Auto) Urine Creatinine Crossmatch 01/03/21 01/03/21 01/04/21 11:00 19:00 03:12 WBC 17.0 H RBC 2.51 L Hgb 7.1 L Hct 21.5 L MCV MCHC RDW 16.6 H Plt Count Lymph % (Auto) Eos % (Auto) Lymph # (Auto) Eos # (Auto) Seg Neutrophils % Seg Neuts % (Manual) Lymphocytes % (Manual) Seg Neutrophils # Seg Neutrophils # Man Lymphocytes # (Manual) Monocytes # (Manual) PT INR APTT Fibrinogen ABG pH 7.463 H POC ABG pCO2 POC ABG pO2 72.2 L ABG pO2 ABG Base Excess ABG Hemoglobin 6.2 L ABG Oxyhemoglobin 91.8 L ABG Sodium 128.4 L ABG Potassium 3.3 L ABG Chloride 96.0 L ABG Glucose 112 H Carboxyhemoglobin Sodium Potassium Chloride Carbon Dioxide BUN Creatinine Glucose POC Glucose Lactic Acid Calcium Ionized Calcium Phosphorus Magnesium AST Alkaline Phosphatase Total Protein Albumin Triglycerides Arterial Blood Glucose 112 H Arterial Blood Ionized Calcium 4.3 L Urine WBC (Auto) Urine Creatinine Crossmatch See Detail 01/04/21 01/04/21 01/04/21 05:16 06:20 06:20 WBC 18.5 H RBC 2.53 L Hgb 7.4 L Hct 21.9 L MCV MCHC RDW 15.8 H Plt Count Lymph % (Auto) Eos % (Auto) Lymph # (Auto) Eos # (Auto) Seg Neutrophils % Seg Neuts % (Manual) Lymphocytes % (Manual) Seg Neutrophils # Seg Neutrophils # Man Lymphocytes # (Manual) Monocytes # (Manual) PT INR APTT Fibrinogen ABG pH POC ABG pCO2 POC ABG pO2 ABG pO2 ABG Base Excess ABG Hemoglobin ABG Oxyhemoglobin ABG Sodium ABG Potassium ABG Chloride ABG Glucose Carboxyhemoglobin Sodium 135 L Potassium Chloride 95.2 L Carbon Dioxide BUN 56 H Creatinine 3.2 H Glucose 109 H POC Glucose 123 H Lactic Acid Calcium 7.6 L Ionized Calcium Phosphorus Magnesium AST Alkaline Phosphatase Total Protein Albumin Triglycerides Arterial Blood Glucose Arterial Blood Ionized Calcium Urine WBC (Auto) Urine Creatinine Crossmatch 01/05/21 01/05/21 01/05/21 03:50 07:22 07:22 WBC 23.8 H RBC 2.93 L Hgb 8.2 L Hct 25.1 L MCV MCHC RDW 16.5 H Plt Count Lymph % (Auto) Eos % (Auto) Lymph # (Auto) Eos # (Auto) Seg Neutrophils % Seg Neuts % (Manual) Lymphocytes % (Manual) Seg Neutrophils # Seg Neutrophils # Man Lymphocytes # (Manual) Monocytes # (Manual) PT INR APTT Fibrinogen ABG pH POC ABG pCO2 POC ABG pO2 ABG pO2 136.8 H ABG Base Excess -2.3 L ABG Hemoglobin 6.9 L ABG Oxyhemoglobin ABG Sodium ABG Potassium ABG Chloride ABG Glucose Carboxyhemoglobin Sodium 134 L Potassium Chloride 93.3 L Carbon Dioxide BUN 77 H Creatinine 4.2 H Glucose 105 H POC Glucose Lactic Acid Calcium Ionized Calcium Phosphorus 4.90 H D Magnesium AST Alkaline Phosphatase Total Protein Albumin Triglycerides Arterial Blood Glucose Arterial Blood Ionized Calcium Urine WBC (Auto) Urine Creatinine Crossmatch 01/05/21 01/05/21 01/05/21 11:02 14:06 15:37 WBC RBC Hgb Hct MCV MCHC RDW Plt Count Lymph % (Auto) Eos % (Auto) Lymph # (Auto) Eos # (Auto) Seg Neutrophils % Seg Neuts % (Manual) Lymphocytes % (Manual) Seg Neutrophils # Seg Neutrophils # Man Lymphocytes # (Manual) Monocytes # (Manual) PT INR APTT Fibrinogen ABG pH POC ABG pCO2 POC ABG pO2 332.3 H ABG pO2 ABG Base Excess ABG Hemoglobin 7.7 L ABG Oxyhemoglobin 98.7 H ABG Sodium 131.0 L ABG Potassium 3.3 L ABG Chloride 97.0 L ABG Glucose 118 H Carboxyhemoglobin Sodium Potassium Chloride Carbon Dioxide BUN Creatinine Glucose POC Glucose 118 H 111 H Lactic Acid Calcium Ionized Calcium Phosphorus Magnesium AST Alkaline Phosphatase Total Protein Albumin Triglycerides Arterial Blood Glucose 118 H Arterial Blood Ionized Calcium 4.4 L Urine WBC (Auto) Urine Creatinine Crossmatch 01/05/21 01/06/21 01/06/21 23:18 04:00 04:20 WBC RBC Hgb Hct MCV MCHC RDW Plt Count Lymph % (Auto) Eos % (Auto) Lymph # (Auto) Eos # (Auto) Seg Neutrophils % Seg Neuts % (Manual) Lymphocytes % (Manual) Seg Neutrophils # Seg Neutrophils # Man Lymphocytes # (Manual) Monocytes # (Manual) PT INR APTT Fibrinogen ABG pH POC ABG pCO2 POC ABG pO2 230.5 H ABG pO2 ABG Base Excess ABG Hemoglobin 7.9 L ABG Oxyhemoglobin 98.5 H ABG Sodium 129.4 L ABG Potassium ABG Chloride 97.0 L ABG Glucose 117 H Carboxyhemoglobin Sodium 133 L Potassium Chloride 94.4 L Carbon Dioxide BUN 62 H Creatinine 3.6 H Glucose 110 H POC Glucose 110 H Lactic Acid Calcium 7.8 L Ionized Calcium Phosphorus Magnesium AST Alkaline Phosphatase Total Protein Albumin Triglycerides Arterial Blood Glucose 117 H Arterial Blood Ionized Calcium 4.5 L Urine WBC (Auto) Urine Creatinine Crossmatch 01/06/21 01/06/21 01/06/21 05:28 09:00 11:00 WBC 15.2 H RBC 2.18 L Hgb 6.5 L Hct 21.8 L MCV 100 H MCHC 30 L RDW 18.5 H Plt Count Lymph % (Auto) Eos % (Auto) Lymph # (Auto) Eos # (Auto) Seg Neutrophils % Seg Neuts % (Manual) Lymphocytes % (Manual) Seg Neutrophils # Seg Neutrophils # Man Lymphocytes # (Manual) Monocytes # (Manual) PT INR APTT Fibrinogen ABG pH POC ABG pCO2 POC ABG pO2 ABG pO2 ABG Base Excess ABG Hemoglobin ABG Oxyhemoglobin ABG Sodium ABG Potassium ABG Chloride ABG Glucose Carboxyhemoglobin Sodium Potassium Chloride Carbon Dioxide BUN Creatinine Glucose POC Glucose 109 H Lactic Acid Calcium Ionized Calcium Phosphorus Magnesium AST Alkaline Phosphatase Total Protein Albumin Triglycerides Arterial Blood Glucose Arterial Blood Ionized Calcium Urine WBC (Auto) Urine Creatinine Crossmatch See Detail 01/06/21 01/06/21 01/07/21 11:32 23:44 03:10 WBC 15.3 H RBC 2.30 L Hgb 6.7 L Hct 20.1 L MCV MCHC RDW 16.6 H Plt Count Lymph % (Auto) Eos % (Auto) Lymph # (Auto) Eos # (Auto) Seg Neutrophils % Seg Neuts % (Manual) Lymphocytes % (Manual) Seg Neutrophils # Seg Neutrophils # Man Lymphocytes # (Manual) Monocytes # (Manual) PT INR APTT Fibrinogen ABG pH POC ABG pCO2 POC ABG pO2 ABG pO2 ABG Base Excess ABG Hemoglobin ABG Oxyhemoglobin ABG Sodium ABG Potassium ABG Chloride ABG Glucose Carboxyhemoglobin Sodium Potassium Chloride Carbon Dioxide BUN Creatinine Glucose POC Glucose 113 H 118 H Lactic Acid Calcium Ionized Calcium Phosphorus Magnesium AST Alkaline Phosphatase Total Protein Albumin Triglycerides Arterial Blood Glucose Arterial Blood Ionized Calcium Urine WBC (Auto) Urine Creatinine Crossmatch 01/07/21 01/07/21 01/07/21 03:10 04:17 05:06 WBC RBC Hgb Hct MCV MCHC RDW Plt Count Lymph % (Auto) Eos % (Auto) Lymph # (Auto) Eos # (Auto) Seg Neutrophils % Seg Neuts % (Manual) Lymphocytes % (Manual) Seg Neutrophils # Seg Neutrophils # Man Lymphocytes # (Manual) Monocytes # (Manual) PT INR APTT Fibrinogen ABG pH 7.272 L POC ABG pCO2 50.1 H POC ABG pO2 ABG pO2 ABG Base Excess ABG Hemoglobin 8.4 L ABG Oxyhemoglobin ABG Sodium 128.6 L ABG Potassium ABG Chloride 95.0 L ABG Glucose 109 H Carboxyhemoglobin Sodium 133 L Potassium Chloride 93.6 L Carbon Dioxide BUN 85 H Creatinine 3.9 H Glucose 112 H POC Glucose 106 H Lactic Acid Calcium Ionized Calcium Phosphorus 4.70 H D Magnesium AST Alkaline Phosphatase Total Protein Albumin Triglycerides Arterial Blood Glucose 109 H Arterial Blood Ionized Calcium Urine WBC (Auto) Urine Creatinine Crossmatch 01/07/21 01/07/21 01/07/21 14:05 16:00 23:25 WBC RBC Hgb 8.1 L Hct 24.2 L MCV MCHC RDW Plt Count Lymph % (Auto) Eos % (Auto) Lymph # (Auto) Eos # (Auto) Seg Neutrophils % Seg Neuts % (Manual) Lymphocytes % (Manual) Seg Neutrophils # Seg Neutrophils # Man Lymphocytes # (Manual) Monocytes # (Manual) PT INR APTT Fibrinogen ABG pH POC ABG pCO2 POC ABG pO2 ABG pO2 ABG Base Excess ABG Hemoglobin 7.2 L ABG Oxyhemoglobin ABG Sodium 127.3 L ABG Potassium ABG Chloride 96.0 L ABG Glucose 98 H Carboxyhemoglobin Sodium Potassium Chloride Carbon Dioxide BUN Creatinine Glucose POC Glucose 106 H Lactic Acid Calcium Ionized Calcium Phosphorus Magnesium AST Alkaline Phosphatase Total Protein Albumin Triglycerides Arterial Blood Glucose 98 H Arterial Blood Ionized Calcium Urine WBC (Auto) Urine Creatinine Crossmatch 01/08/21 01/08/21 01/08/21 03:22 05:30 23:22 WBC RBC Hgb Hct MCV MCHC RDW Plt Count Lymph % (Auto) Eos % (Auto) Lymph # (Auto) Eos # (Auto) Seg Neutrophils % Seg Neuts % (Manual) Lymphocytes % (Manual) Seg Neutrophils # Seg Neutrophils # Man Lymphocytes # (Manual) Monocytes # (Manual) PT INR APTT Fibrinogen ABG pH POC ABG pCO2 POC ABG pO2 71.3 L ABG pO2 ABG Base Excess ABG Hemoglobin 8.7 L ABG Oxyhemoglobin 92.2 L ABG Sodium 125.9 L ABG Potassium ABG Chloride 96.0 L ABG Glucose 124 H Carboxyhemoglobin Sodium Potassium Chloride Carbon Dioxide BUN Creatinine Glucose POC Glucose 118 H 110 H Lactic Acid Calcium Ionized Calcium Phosphorus Magnesium AST Alkaline Phosphatase Total Protein Albumin Triglycerides Arterial Blood Glucose 124 H Arterial Blood Ionized Calcium Urine WBC (Auto) Urine Creatinine Crossmatch 01/08/21 01/08/21 01/09/21 Unknown Unknown 08:45 WBC 15.2 H RBC 2.62 L Hgb 7.6 L Hct 22.7 L MCV MCHC RDW 16.7 H Plt Count Lymph % (Auto) Eos % (Auto) Lymph # (Auto) Eos # (Auto) Seg Neutrophils % Seg Neuts % (Manual) 95.0 H Lymphocytes % (Manual) 3.0 L Seg Neutrophils # Seg Neutrophils # Man 14.4 H Lymphocytes # (Manual) 0.5 L Monocytes # (Manual) PT INR APTT Fibrinogen ABG pH POC ABG pCO2 POC ABG pO2 ABG pO2 ABG Base Excess ABG Hemoglobin ABG Oxyhemoglobin ABG Sodium ABG Potassium ABG Chloride ABG Glucose Carboxyhemoglobin Sodium 129 L 129 L Potassium Chloride 91.2 L 92.7 L Carbon Dioxide 21 L 19 L BUN 91 H 105 H Creatinine 4.0 H 4.4 H Glucose 115 H 107 H POC Glucose Lactic Acid Calcium Ionized Calcium Phosphorus 5.00 H Magnesium AST Alkaline Phosphatase Total Protein 5.3 L Albumin 1.6 L Triglycerides 166 H Arterial Blood Glucose Arterial Blood Ionized Calcium Urine WBC (Auto) Urine Creatinine Crossmatch 01/09/21 01/09/21 01/10/21 10:10 23:51 04:00 WBC 14.1 H RBC 2.50 L Hgb 7.2 L Hct 21.6 L MCV MCHC RDW 16.5 H Plt Count Lymph % (Auto) Eos % (Auto) Lymph # (Auto) Eos # (Auto) Seg Neutrophils % Seg Neuts % (Manual) 92.0 H Lymphocytes % (Manual) 2.0 L Seg Neutrophils # Seg Neutrophils # Man 13.0 H Lymphocytes # (Manual) 0.3 L Monocytes # (Manual) PT INR APTT Fibrinogen ABG pH 7.273 L POC ABG pCO2 POC ABG pO2 ABG pO2 ABG Base Excess ABG Hemoglobin 8.7 L ABG Oxyhemoglobin ABG Sodium 126.2 L ABG Potassium 4.8 H ABG Chloride 96.0 L ABG Glucose 160 H Carboxyhemoglobin Sodium Potassium Chloride Carbon Dioxide BUN Creatinine Glucose POC Glucose 154 H Lactic Acid Calcium Ionized Calcium Phosphorus Magnesium AST Alkaline Phosphatase Total Protein Albumin Triglycerides Arterial Blood Glucose 160 H Arterial Blood Ionized Calcium Urine WBC (Auto) Urine Creatinine Crossmatch 01/10/21 01/10/21 01/10/21 04:01 04:01 04:01 WBC 12.6 H RBC 2.89 L Hgb 8.1 L Hct 24.9 L MCV MCHC RDW 16.6 H Plt Count Lymph % (Auto) Eos % (Auto) Lymph # (Auto) Eos # (Auto) Seg Neutrophils % Seg Neuts % (Manual) 95.0 H Lymphocytes % (Manual) 3.0 L Seg Neutrophils # Seg Neutrophils # Man 12.0 H Lymphocytes # (Manual) 0.4 L Monocytes # (Manual) PT 15.4 H INR 1.17 H APTT 40.2 H Fibrinogen 817 H ABG pH POC ABG pCO2 POC ABG pO2 ABG pO2 ABG Base Excess ABG Hemoglobin ABG Oxyhemoglobin ABG Sodium ABG Potassium ABG Chloride ABG Glucose Carboxyhemoglobin Sodium 128 L Potassium Chloride 90.4 L Carbon Dioxide 19 L BUN 113 H Creatinine 4.5 H Glucose 162 H POC Glucose Lactic Acid Calcium Ionized Calcium Phosphorus 5.70 H Magnesium AST Alkaline Phosphatase Total Protein 6.2 L Albumin 2.1 L Triglycerides Arterial Blood Glucose Arterial Blood Ionized Calcium Urine WBC (Auto) Urine Creatinine Crossmatch 01/10/21 01/10/21 01/11/21 05:31 11:45 04:00 WBC RBC Hgb Hct MCV MCHC RDW Plt Count Lymph % (Auto) Eos % (Auto) Lymph # (Auto) Eos # (Auto) Seg Neutrophils % Seg Neuts % (Manual) Lymphocytes % (Manual) Seg Neutrophils # Seg Neutrophils # Man Lymphocytes # (Manual) Monocytes # (Manual) PT INR APTT Fibrinogen ABG pH 7.311 L POC ABG pCO2 49.2 H POC ABG pO2 ABG pO2 ABG Base Excess ABG Hemoglobin 9.4 L ABG Oxyhemoglobin ABG Sodium 130.3 L ABG Potassium ABG Chloride 96.0 L ABG Glucose 104 H Carboxyhemoglobin Sodium Potassium Chloride Carbon Dioxide BUN Creatinine Glucose POC Glucose 150 H 145 H Lactic Acid Calcium Ionized Calcium Phosphorus Magnesium AST Alkaline Phosphatase Total Protein Albumin Triglycerides Arterial Blood Glucose 104 H Arterial Blood Ionized Calcium Urine WBC (Auto) Urine Creatinine Crossmatch 01/11/21 01/11/21 01/12/21 04:45 17:29 05:51 WBC RBC Hgb Hct MCV MCHC RDW Plt Count Lymph % (Auto) Eos % (Auto) Lymph # (Auto) Eos # (Auto) Seg Neutrophils % Seg Neuts % (Manual) Lymphocytes % (Manual) Seg Neutrophils # Seg Neutrophils # Man Lymphocytes # (Manual) Monocytes # (Manual) PT INR APTT Fibrinogen ABG pH POC ABG pCO2 POC ABG pO2 ABG pO2 ABG Base Excess ABG Hemoglobin ABG Oxyhemoglobin ABG Sodium ABG Potassium ABG Chloride ABG Glucose Carboxyhemoglobin Sodium 134 L Potassium 3.5 L D Chloride 95.5 L Carbon Dioxide BUN 88 H Creatinine 3.5 H Glucose 103 H POC Glucose 109 H 114 H Lactic Acid Calcium Ionized Calcium Phosphorus Magnesium AST Alkaline Phosphatase Total Protein Albumin Triglycerides Arterial Blood Glucose Arterial Blood Ionized Calcium Urine WBC (Auto) Urine Creatinine Crossmatch 01/12/21 01/12/21 01/12/21 10:00 10:00 11:56 WBC RBC Hgb Hct MCV MCHC RDW Plt Count Lymph % (Auto) Eos % (Auto) Lymph # (Auto) Eos # (Auto) Seg Neutrophils % Seg Neuts % (Manual) Lymphocytes % (Manual) Seg Neutrophils # Seg Neutrophils # Man Lymphocytes # (Manual) Monocytes # (Manual) PT INR APTT Fibrinogen ABG pH POC ABG pCO2 POC ABG pO2 ABG pO2 ABG Base Excess ABG Hemoglobin ABG Oxyhemoglobin ABG Sodium ABG Potassium ABG Chloride ABG Glucose Carboxyhemoglobin Sodium 136 L Potassium Chloride 95.2 L Carbon Dioxide BUN 102 H Creatinine 3.6 H Glucose 106 H POC Glucose 113 H Lactic Acid Calcium Ionized Calcium Phosphorus 4.90 H Magnesium AST Alkaline Phosphatase Total Protein Albumin Triglycerides 153 H Arterial Blood Glucose Arterial Blood Ionized Calcium Urine WBC (Auto) Urine Creatinine Crossmatch 01/12/21 01/12/21 01/13/21 17:43 23:31 03:14 WBC RBC Hgb Hct MCV MCHC RDW Plt Count Lymph % (Auto) Eos % (Auto) Lymph # (Auto) Eos # (Auto) Seg Neutrophils % Seg Neuts % (Manual) Lymphocytes % (Manual) Seg Neutrophils # Seg Neutrophils # Man Lymphocytes # (Manual) Monocytes # (Manual) PT INR APTT Fibrinogen ABG pH 7.484 H POC ABG pCO2 POC ABG pO2 ABG pO2 ABG Base Excess ABG Hemoglobin 8.4 L ABG Oxyhemoglobin ABG Sodium 134.4 L ABG Potassium 3.1 L ABG Chloride ABG Glucose 117 H Carboxyhemoglobin Sodium Potassium Chloride Carbon Dioxide BUN Creatinine Glucose POC Glucose 113 H 108 H Lactic Acid Calcium Ionized Calcium Phosphorus Magnesium AST Alkaline Phosphatase Total Protein Albumin Triglycerides Arterial Blood Glucose 117 H Arterial Blood Ionized Calcium 4.5 L Urine WBC (Auto) Urine Creatinine Crossmatch 01/13/21 01/13/21 01/13/21 04:56 05:00 05:00 WBC RBC 2.87 L Hgb 8.0 L Hct 24.4 L MCV MCHC RDW 17.2 H Plt Count Lymph % (Auto) Eos % (Auto) Lymph # (Auto) Eos # (Auto) Seg Neutrophils % Seg Neuts % (Manual) Lymphocytes % (Manual) Seg Neutrophils # Seg Neutrophils # Man Lymphocytes # (Manual) Monocytes # (Manual) PT INR APTT Fibrinogen ABG pH POC ABG pCO2 POC ABG pO2 ABG pO2 ABG Base Excess ABG Hemoglobin ABG Oxyhemoglobin ABG Sodium ABG Potassium ABG Chloride ABG Glucose Carboxyhemoglobin Sodium Potassium 3.0 L Chloride 97.6 L Carbon Dioxide BUN 69 H Creatinine 2.9 H Glucose 114 H POC Glucose 110 H Lactic Acid Calcium 8.0 L Ionized Calcium Phosphorus Magnesium AST Alkaline Phosphatase Total Protein Albumin Triglycerides Arterial Blood Glucose Arterial Blood Ionized Calcium Urine WBC (Auto) Urine Creatinine Crossmatch 01/13/21 01/14/21 01/14/21 12:09 05:00 05:00 WBC 12.4 H RBC 2.72 L Hgb 7.7 L Hct 23.3 L MCV MCHC RDW 17.3 H Plt Count Lymph % (Auto) 6.5 L Eos % (Auto) 7.7 H Lymph # (Auto) 0.8 L Eos # (Auto) 1.0 H Seg Neutrophils % 82.7 H Seg Neuts % (Manual) Lymphocytes % (Manual) Seg Neutrophils # 10.2 H Seg Neutrophils # Man Lymphocytes # (Manual) Monocytes # (Manual) PT INR APTT Fibrinogen ABG pH POC ABG pCO2 POC ABG pO2 ABG pO2 ABG Base Excess ABG Hemoglobin ABG Oxyhemoglobin ABG Sodium ABG Potassium ABG Chloride ABG Glucose Carboxyhemoglobin Sodium Potassium 3.2 L Chloride Carbon Dioxide BUN 79 H Creatinine 3.1 H Glucose POC Glucose 111 H Lactic Acid Calcium Ionized Calcium Phosphorus Magnesium AST Alkaline Phosphatase Total Protein Albumin Triglycerides Arterial Blood Glucose Arterial Blood Ionized Calcium Urine WBC (Auto) Urine Creatinine Crossmatch 01/16/21 01/16/21 01/16/21 04:30 04:30 16:00 WBC RBC 2.62 L Hgb 7.6 L Hct 22.6 L MCV MCHC RDW 17.3 H Plt Count Lymph % (Auto) Eos % (Auto) Lymph # (Auto) Eos # (Auto) Seg Neutrophils % Seg Neuts % (Manual) Lymphocytes % (Manual) Seg Neutrophils # Seg Neutrophils # Man Lymphocytes # (Manual) Monocytes # (Manual) PT INR APTT Fibrinogen ABG pH POC ABG pCO2 POC ABG pO2 ABG pO2 ABG Base Excess ABG Hemoglobin ABG Oxyhemoglobin ABG Sodium ABG Potassium ABG Chloride ABG Glucose Carboxyhemoglobin Sodium 146 H Potassium 2.9 L* 3.0 L Chloride Carbon Dioxide BUN 58 H Creatinine 2.4 H Glucose 101 H POC Glucose Lactic Acid Calcium Ionized Calcium Phosphorus Magnesium AST Alkaline Phosphatase Total Protein Albumin 2.1 L Triglycerides Arterial Blood Glucose Arterial Blood Ionized Calcium Urine WBC (Auto) Urine Creatinine Crossmatch 01/16/21 01/17/21 01/17/21 Unknown 04:30 04:30 WBC RBC 2.80 L Hgb 7.9 L Hct 24.1 L MCV MCHC RDW 17.1 H Plt Count Lymph % (Auto) Eos % (Auto) Lymph # (Auto) Eos # (Auto) Seg Neutrophils % Seg Neuts % (Manual) Lymphocytes % (Manual) Seg Neutrophils # Seg Neutrophils # Man Lymphocytes # (Manual) Monocytes # (Manual) PT INR APTT Fibrinogen ABG pH POC ABG pCO2 POC ABG pO2 ABG pO2 ABG Base Excess ABG Hemoglobin ABG Oxyhemoglobin ABG Sodium ABG Potassium ABG Chloride ABG Glucose Carboxyhemoglobin Sodium 151 H Potassium 2.8 L* Chloride 108.0 H Carbon Dioxide BUN 58 H Creatinine 2.2 H Glucose 103 H POC Glucose Lactic Acid Calcium 8.0 L Ionized Calcium Phosphorus Magnesium 1.40 L AST Alkaline Phosphatase Total Protein Albumin Triglycerides 216 H Arterial Blood Glucose Arterial Blood Ionized Calcium Urine WBC (Auto) > 182.0 H Urine Creatinine Crossmatch 01/17/21 01/17/21 01/18/21 11:24 23:00 04:15 WBC RBC Hgb Hct MCV MCHC RDW Plt Count Lymph % (Auto) Eos % (Auto) Lymph # (Auto) Eos # (Auto) Seg Neutrophils % Seg Neuts % (Manual) Lymphocytes % (Manual) Seg Neutrophils # Seg Neutrophils # Man Lymphocytes # (Manual) Monocytes # (Manual) PT INR APTT Fibrinogen ABG pH POC ABG pCO2 POC ABG pO2 ABG pO2 ABG Base Excess ABG Hemoglobin ABG Oxyhemoglobin ABG Sodium ABG Potassium ABG Chloride ABG Glucose Carboxyhemoglobin Sodium 153 H Potassium 3.3 L 3.3 L Chloride 113.1 H Carbon Dioxide BUN 55 H Creatinine 1.9 H Glucose POC Glucose 110 H Lactic Acid Calcium 7.4 L Ionized Calcium Phosphorus Magnesium AST Alkaline Phosphatase Total Protein Albumin Triglycerides Arterial Blood Glucose Arterial Blood Ionized Calcium Urine WBC (Auto) Urine Creatinine Crossmatch 01/18/21 01/18/21 01/19/21 10:37 21:00 05:00 WBC RBC 2.64 L Hgb 7.8 L Hct 22.7 L MCV MCHC RDW 16.8 H Plt Count Lymph % (Auto) Eos % (Auto) Lymph # (Auto) Eos # (Auto) Seg Neutrophils % Seg Neuts % (Manual) Lymphocytes % (Manual) Seg Neutrophils # Seg Neutrophils # Man Lymphocytes # (Manual) Monocytes # (Manual) PT INR APTT Fibrinogen ABG pH 7.512 H POC ABG pCO2 POC ABG pO2 47.8 L ABG pO2 ABG Base Excess ABG Hemoglobin 8.9 L ABG Oxyhemoglobin 83.3 L ABG Sodium 151.5 H ABG Potassium 2.9 L ABG Chloride 117.0 H ABG Glucose 111 H Carboxyhemoglobin Sodium Potassium 3.4 L Chloride Carbon Dioxide BUN Creatinine Glucose POC Glucose Lactic Acid Calcium Ionized Calcium Phosphorus Magnesium AST Alkaline Phosphatase Total Protein Albumin Triglycerides Arterial Blood Glucose 111 H Arterial Blood Ionized Calcium 4.3 L Urine WBC (Auto) Urine Creatinine Crossmatch 01/19/21 01/19/21 01/20/21 07:39 07:39 07:25 WBC RBC 2.82 L Hgb 8.2 L Hct 24.6 L MCV MCHC RDW 16.8 H Plt Count Lymph % (Auto) Eos % (Auto) Lymph # (Auto) Eos # (Auto) Seg Neutrophils % Seg Neuts % (Manual) Lymphocytes % (Manual) Seg Neutrophils # Seg Neutrophils # Man Lymphocytes # (Manual) Monocytes # (Manual) PT INR APTT Fibrinogen ABG pH POC ABG pCO2 POC ABG pO2 ABG pO2 ABG Base Excess ABG Hemoglobin ABG Oxyhemoglobin ABG Sodium ABG Potassium ABG Chloride ABG Glucose Carboxyhemoglobin Sodium 156 H Potassium 3.2 L Chloride 115.4 H Carbon Dioxide BUN 50 H Creatinine 1.6 H Glucose 108 H POC Glucose Lactic Acid Calcium 8.1 L Ionized Calcium Phosphorus Magnesium 1.50 L AST Alkaline Phosphatase Total Protein Albumin Triglycerides Arterial Blood Glucose Arterial Blood Ionized Calcium Urine WBC (Auto) 30.0 H Urine Creatinine Crossmatch 01/20/21 01/20/21 01/20/21 07:25 07:25 23:20 WBC RBC 2.94 L Hgb 8.4 L Hct 25.9 L MCV MCHC RDW 17.2 H Plt Count Lymph % (Auto) Eos % (Auto) Lymph # (Auto) Eos # (Auto) Seg Neutrophils % Seg Neuts % (Manual) Lymphocytes % (Manual) Seg Neutrophils # Seg Neutrophils # Man Lymphocytes # (Manual) Monocytes # (Manual) PT INR APTT Fibrinogen ABG pH POC ABG pCO2 POC ABG pO2 ABG pO2 ABG Base Excess ABG Hemoglobin ABG Oxyhemoglobin ABG Sodium ABG Potassium ABG Chloride ABG Glucose Carboxyhemoglobin Sodium 149 H Potassium Chloride 113.8 H Carbon Dioxide BUN 44 H Creatinine Glucose 108 H POC Glucose 106 H Lactic Acid Calcium Ionized Calcium Phosphorus Magnesium AST Alkaline Phosphatase Total Protein Albumin Triglycerides Arterial Blood Glucose Arterial Blood Ionized Calcium Urine WBC (Auto) Urine Creatinine Crossmatch 01/21/21 01/21/21 01/22/21 08:20 17:41 05:38 WBC RBC Hgb Hct MCV MCHC RDW Plt Count Lymph % (Auto) Eos % (Auto) Lymph # (Auto) Eos # (Auto) Seg Neutrophils % Seg Neuts % (Manual) Lymphocytes % (Manual) Seg Neutrophils # Seg Neutrophils # Man Lymphocytes # (Manual) Monocytes # (Manual) PT INR APTT Fibrinogen ABG pH POC ABG pCO2 POC ABG pO2 ABG pO2 ABG Base Excess ABG Hemoglobin ABG Oxyhemoglobin ABG Sodium ABG Potassium ABG Chloride ABG Glucose Carboxyhemoglobin Sodium 153 H Potassium Chloride 118.2 H Carbon Dioxide BUN 47 H Creatinine Glucose 105 H POC Glucose 115 H 111 H Lactic Acid Calcium 8.3 L Ionized Calcium Phosphorus Magnesium AST Alkaline Phosphatase Total Protein Albumin Triglycerides Arterial Blood Glucose Arterial Blood Ionized Calcium Urine WBC (Auto) Urine Creatinine Crossmatch
[2021-01-22 11:35] LABS: BUN/Creatinine Ratio 35; Blood Urea Nitrogen 42 mg/dL (9-20); Calcium 7.8 mg/dL (8.4-10.2); Hemolysis Index 2
[2021-01-22 11:42] LABS: Hematocrit 27.5 % (35.5-45.6); Hemoglobin 8.9 gm/dl (11.8-15.2); Mean Corpuscular HGB Conc 32 % (32-34); Mean Corpuscular Volume 88 fl (84-94); Platelet Count 310 K/mm3 (140-440); Red Blood Count 3.11 M/mm3 (3.65-5.03); Red Cell Distribution Width 16.9 % (13.2-15.2)
--- NOTE | 2021-01-22 12:18 | Progress Note ---
Assessment and Plan Impression * Nonoliguric acute kidney injury secondary to ATN --HD initiated December 30 * Incarcerated hernia with ischemic bowel. Status post bowel resection * Hypernatremia, * Fluid overload * Sepsis * Respiratory failure, intubated * Hyperkalemia * Metabolic Acidosis, Gap * Hypoalbuminemia * Anemia * Bacteremia Recommendations * Patient with good UOP. Urine output seems to be stabilizing . * Renal function has improved significantly. Patient remains off dialysis . * Do not anticipate need for additional dialysis treatment. Patient is bacte remic. His Vas-Cath has been removed * Would recommend maintaining Lawrence catheter for now * Transfuse for Hb < 7 * TPN per nutrition/primary * Pressors prn to maintain MAP greater than 65 * Avoid nephrotoxins * Monitor fluid status and electrolytes * Replace potassium * Patient is still hyponatremic. Continue IV dextrose as well as free water through the feeding tube * Plans for transfer to LTAC noted Subjective Date of service: 01/22/21 Principal diagnosis: SBO and necrosis of large part of small intestine Interval history: Patient remains in the ICU. Currently on 30% FiO2. Oxygen saturation 100 %. Lawrence catheter in place Objective - Vital Signs Vital signs: Vital Signs - 12hr 01/22/21 01/22/21 01/22/21 00:31 00:45 01:00 Temperature Pulse Rate 89 86 85 Respiratory 25 H 24 25 H Rate Blood Pressure 128/72 128/72 113/67 O2 Sat by Pulse 97 100 100 Oximetry 01/22/21 01/22/21 01/22/21 01:15 01:31 01:45 Temperature Pulse Rate 90 84 87 Respiratory 27 H 27 H 29 H Rate Blood Pressure 113/67 109/62 109/62 O2 Sat by Pulse 100 100 97 Oximetry 01/22/21 01/22/21 01/22/21 02:00 02:15 02:31 Temperature Pulse Rate 85 87 90 Respiratory 26 H 27 H 36 H Rate Blood Pressure 106/61 106/61 106/61 O2 Sat by Pulse 99 98 100 Oximetry 01/22/21 01/22/21 01/22/21 02:45 03:00 03:15 Temperature Pulse Rate 91 H 93 H 97 H Respiratory 21 24 17 Rate Blood Pressure 106/61 120/78 120/78 O2 Sat by Pulse 99 99 99 Oximetry 07/04/21 07/04/21 07/04/21 03:30 03:44 03:46 Temperature Pulse Rate 98 H 85 100 H Respiratory 16 12 Rate Blood Pressure 120/78 120/78 O2 Sat by Pulse 100 97 Oximetry 01/22/21 01/22/21 01/22/21 03:49 03:57 04:00 Temperature 98.3 F Pulse Rate 100 H 99 H Respiratory 15 Rate Blood Pressure 120/78 120/78 O2 Sat by Pulse 97 96 Oximetry 01/22/21 01/22/21 01/22/21 04:16 04:30 04:46 Temperature Pulse Rate 96 H 97 H 97 H Respiratory 23 11 L 27 H Rate Blood Pressure 106/81 106/81 106/81 O2 Sat by Pulse 97 96 96 Oximetry 01/22/21 01/22/21 01/22/21 05:00 05:15 05:31 Temperature Pulse Rate 96 H 96 H 100 H Respiratory 25 H 29 H 11 L Rate Blood Pressure 106/81 106/81 112/66 O2 Sat by Pulse 98 98 100 Oximetry 01/22/21 01/22/21 01/22/21 05:45 06:00 06:15 Temperature Pulse Rate 106 H 105 H 107 H Respiratory 20 18 12 Rate Blood Pressure 112/66 128/68 128/68 O2 Sat by Pulse 97 97 100 Oximetry 01/22/21 01/22/21 01/22/21 06:31 06:45 07:00 Temperature Pulse Rate 111 H 107 H 106 H Respiratory 18 18 23 Rate Blood Pressure 128/68 128/68 129/72 O2 Sat by Pulse 97 100 100 Oximetry 01/22/21 01/22/21 01/22/21 07:15 07:31 07:45 Temperature Pulse Rate 108 H 110 H 106 H Respiratory 9 L 21 11 L Rate Blood Pressure 129/72 129/72 129/72 O2 Sat by Pulse 100 100 100 Oximetry 01/22/21 01/22/21 01/22/21 08:00 08:15 08:31 Temperature Pulse Rate 103 H 104 H 100 H Respiratory 12 25 H 16 Rate Blood Pressure 110/59 110/59 110/59 O2 Sat by Pulse 100 100 100 Oximetry 01/22/21 01/22/21 01/22/21 08:45 09:01 09:15 Temperature Pulse Rate 98 H 96 H 97 H Respiratory 20 15 26 H Rate Blood Pressure 129/72 129/72 129/72 O2 Sat by Pulse 100 100 100 Oximetry 01/22/21 01/22/21 01/22/21 09:31 09:45 10:00 Temperature Pulse Rate 97 H 97 H 98 H Respiratory 20 24 24 Rate Blood Pressure 129/72 94/64 100/70 O2 Sat by Pulse 100 99 99 Oximetry 01/22/21 01/22/21 01/22/21 10:15 10:31 10:45 Temperature Pulse Rate 96 H 96 H 101 H Respiratory 25 H 28 H 20 Rate Blood Pressure 100/70 100/70 100/70 O2 Sat by Pulse 99 96 100 Oximetry 01/22/21 11:00 Temperature Pulse Rate 98 H Respiratory 12 Rate Blood Pressure 110/63 O2 Sat by Pulse 100 Oximetry - General Appearance General appearance: well-developed, well-nourished, appears stated age, intubated EENT: PERRL, mucous membranes moist Neck: no JVD, no thyromegaly, no carotid bruit, supple Respiratory: Present: Ronchi (Few scattered rhonchi) Cardiology: regular, normal heart rate, S1S2, no murmurs Gastrointestinal: other (Midline dressing in place. Abdominal binder noted) - Lab 01/22/21 10:08 01/22/21 10:08 Most recent lab results ABG pH 7.512 (7.320-7.450) H 01/19/21 05:00 ABG pCO2 37.9 mm Hg 01/05/21 03:50 ABG pO2 136.8 mm Hg (80.0-90.0) H 01/05/21 03:50 ABG HCO3 22.4 mmol/L (20.0-26.0) 01/05/21 03:50 ABG O2 Saturation 84.4 (0-100) 01/19/21 05:00 Calcium 7.8 mg/dL (8.4-10.2) L 01/22/21 10:08 Phosphorus 4.40 mg/dL (2.5-4.5) 01/17/21 04:30 Magnesium 1.90 mg/dL (1.7-2.3) 01/20/21 07:25 Urine Creatinine 17.6 mg/dL (0.1-20.0) 01/19/21 Unknown Urine Sodium 87 mmol/L 01/19/21 Unknown Medications & Allergies - Medications Allergies/Adverse Reactions: Allergies Iodinated Contrast Media Adverse Reaction (Verified 09/04/18 14:20) Unknown Home Medications: Home Medications Medication Instructions Recorded Confirmed Last Taken Type AtorvaSTATin [Lipitor] 80 mg PO QHS tablet 05/08/19 01/04/21 03/28/20 Rx Albuterol Sulfate [Proventil Hfa] 13.4 gm IH Q6H #1 hfa.aer.ad 04/01/20 01/04/21 Unknown Rx Dextrose 50% in Water [D50W (25GM) 50 ml IV Q30MIN PRN syringe 01/20/21 Unknown Rx Syringe] Famotidine [Pepcid] 20 mg PO BID tablet 01/20/21 Unknown Rx Free Water 300 ml PO Q4HR oral.liqd 01/20/21 Unknown Rx HYDROmorphone [Dilaudid] 0.25 mg IV Q4H PRN syringe 01/20/21 Unknown Rx HYDROmorphone [Dilaudid] 0.5 mg IV Q4H PRN syringe 01/20/21 Unknown Rx HYDROmorphone [Dilaudid] 1 mg IV Q4H syringe 01/20/21 Unknown Rx Insulin Regular, Human [HumuLIN R] 0 units SUB-Q Q6H units 01/20/21 Unknown Rx Lipase/Protease/Amylase [Pancreaze 1 each FEEDTUBE PRN PRN capsule 01/20/[address] 10,500 Unit] Min Oil/Petrolatum [Artificial 1 applic OU Q4HR PRN tube 01/20/21 Unknown Rx Tears Ophth Oint] Petrolatum,White [Vaseline Lip 1 applic TP Q2HR PRN tube 01/20/21 Unknown Rx Therapy] Potassium Chloride 40 meq FEEDTUBE BID packet 01/20/21 Unknown Rx QUEtiapine [SEROquel] 50 mg PO BID tablet 01/20/21 Unknown Rx Simple Syrup 15 ml FEEDTUBE PRN PRN oral.liqd 01/20/21 Unknown Rx Sodium Bicarbonate 325 mg FEEDTUBE PRN PRN tablet 01/20/21 Unknown Rx Sodium Chloride 0.9% Int [Sodium 10 ml IV BID syringe 01/20/21 Unknown Rx Chloride Flush Syringe 10 ml] Sodium Chloride 0.9% Int [Sodium 10 ml IV PRN PRN syringe 01/20/21 Unknown Rx Chloride Flush Syringe 10 ml] dexmedeTOMIDine [Dexmedetomidine] 1,000 mcg IV TITRATE vial 01/20/21 Unknown Rx fentaNYL 50 MCG/HR Patch 72HR 1 applic TD Q3D ea 01/20/21 Unknown Rx [Duragesic 50mcg] Active Medications: Generic Name Dose Route Start Last Admin Trade Name Freq PRN Reason Stop Dose Admin Acetaminophen 650 mg 01/16/21 03:57 01/21/21 16:25 Acetaminophen 325 Mg/10.15 Ml Oral Liqd Unit Dose FEEDTUBE 650 mg Q6H PRN Administration Non Cardiac Pain or Temp>100.5 Lipase/Protease/Amylase 1 each 01/07/21 08:44 Lipase 10,500/Protease 25,000/Amylase 43,750 (Units) Dr Maharaj FEEDTUBE PRN PRN For Clogged Feeding Tube Dextrose 50 ml 12/24/20 10:49 Dextrose 50% In Water (25gm) 50 Ml Syringe IV Q30MIN PRN Hypoglycemia Protocol Famotidine 20 mg 01/17/21 10:00 01/22/21 09:29 Famotidine 20 Mg Tab PO 20 mg BID ASCENCION Administration Fentanyl 1 applic 01/11/21 14:00 01/20/21 09:49 Fentanyl 50 Mcg/Hr Patch 72hr TD 1 applic Q3D ASCENCION Administration Heparin Sodium (Porcine) 5,000 unit 01/06/21 14:00 01/21/21 22:00 Heparin 5,000 Unit/1 Ml Vial SUB-Q 5,000 unit Q8HR ASCENCION Administration Hydromorphone HCl 0.5 mg 01/12/21 10:10 01/17/21 15:00 Hydromorphone 1 Mg/1 Ml Inj IV 0.5 mg Q4H PRN Administration Pain , Severe (7-10) Hydromorphone HCl 0.25 mg 01/12/21 10:11 01/15/21 15:40 Hydromorphone 1 Mg/1 Ml Inj IV 0.25 mg Q4H PRN Administration Pain, Moderate (4-6) Hydromorphone HCl 1 mg 01/19/21 11:00 01/22/21 09:28 Hydromorphone 1 Mg/1 Ml Inj IV 1 mg Q4H ASCENCION Administration Hydrophilic Ointment 1 applic 12/20/20 21:58 Lip Therapy Vaseline TP Q2HR PRN Dry Lips Propofol 1,000 mg in 100 mls @ 3.606 mls/hr 12/20/20 22:00 01/19/21 15:12 Diprivan 10 Mg/Ml IV 0 mcg/kg/min TITR ASCENCION 0 mls/hr Titration Protocol 5 MCG/KG/MIN Dexmedetomidine HCl 1,000 mcg/ 260 mls @ 7.322 mls/hr 01/15/21 01:00 01/22/21 06:44 Sodium Chloride IV 1.2 mcg/kg/hr TITRATE ASCENCION 43.93 mls/hr Administration Protocol 0.2 MCG/KG/HR Cefepime HCl 2 gm in 100 mls @ 200 mls/hr 01/20/21 12:00 01/22/21 09:29 Cefepime/Ns 2 Gm/100 Ml IV 01/26/21 22:29 200 mls/hr Q12HR ASCENCION Administration Protocol Dextrose 1,000 mls @ 75 mls/hr 01/21/21 12:00 01/22/21 03:34 D5w IV 75 mls/hr DIRECT ASCENCION Administration Insulin Human Regular 0 units 12/28/20 00:00 01/22/21 00:00 Insulin Regular, Human 100 Units/1 Ml SUB-Q Not Given Q6H ASCENCION Protocol Metoprolol Tartrate 5 mg 01/14/21 13:37 01/15/21 12:42 Metoprolol Tartrate 5 Mg/5 Ml Inj IV 5 mg Q6H PRN Administration SBP >/=160 Multi-Ingred Cream/Lotion/Oil/Oint 1 applic 12/20/20 21:58 01/03/21 01:13 Mineral Oil/Petrolatum, White Ophth Oint 3.5 Gm OU 1 applic Q4HR PRN Administration Dry Eye(s) Quetiapine Fumarate 50 mg 01/19/21 12:00 01/22/21 09:29 Quetiapine 25 Mg Tab PO 50 mg BID ASCENCION Administration Simple Syrup 15 ml 01/07/21 08:44 Simple Syrup 15 Ml FEEDTUBE PRN PRN Hypoglycemia Sodium Bicarbonate 325 mg 01/07/21 08:44 Sodium Bicarbonate 325 Mg Tab FEEDTUBE PRN PRN For Clogged Feeding Tube Sodium Chloride 10 ml 12/20/20 22:00 01/21/21 22:00 Sodium Chloride 0.9% 10 Ml Flush Syringe IV 10 ml BID ASCENCION Administration Sodium Chloride 10 ml 12/20/20 16:42 01/17/21 06:01 Sodium Chloride 0.9% 10 Ml Flush Syringe IV 10 ml PRN PRN Administration LINE FLUSH
--- NOTE | 2021-01-22 12:43 | Progress Note ---
Assessment and Plan Cultures: 12/20/2020 blood culture: No growth 12/20/2020 urine culture: Usual skin giorgio 12/20/2020 tracheal aspirate culture: Mucor 01/16/2021 blood culture: Acinetobacter, Citrobacter 01/16/2021 wound culture: Pseudomonas aeruginosa, Proteus 01/19/2021 blood culture: No growth 01/20/2021 urine culture: no growth A/P: 60-year-old male with obesity, hypertension, tobacco abuse, coronary artery disease, admitted to the hospital on 12/20/2020 with: #Persistent Fever since 01/16, new sepsis secondary to Acinetobacter/Citrobacter bacteremia: Source could be urine/line/abdominal wound. UA with significant pyuria. Lawrence and HD cath were removed. Fever better last 36h #Initial septic shock: Resolved. Secondary to intra-abdominal source, peritonitis. Patient with necrotic bowel secondary to incarcerated ventral hernia. Status post exploratory laparotomy, extensive adhesiolysis, small bowel resection and peritoneal lavage along with ABThera VAC placement on 12/20/2020, replacement 12/29/2020. Off pressors. Last surgery abdomen closure with mesh 01/02/2021. Repeat CT 01/09/21 with large [id number] organized but bland appearing reactive fluid collection in anterior abdomen - seroma v/s hematoma. Surgery following. #JONI: Renally dose antibiotics. Was requiring hemodialysis, now off, creatinine better, nephrology following. #Morbid obesity #Mucor in tracheal aspirate is likely colonization. No treatment needed currently. Recs: -Continue IV cefepime 2 g every 12 hours D4, fever improving the last 36 hours will monitor -CRP/procal -If patient remains persistently febrile, consider CT abdomen and pelvis eval collection -Continue wound care for lower abdominal wound MD [facility] ([facility]) Office [phone] Subjective Date of service: 01/22/21 Principal diagnosis: SBO and necrosis of large part of small intestine Interval history: Remains intubated, no fever for 36 hours, wants to be extubated. Objective - Exam Narrative Exam: General appearance: Alert, intubated Eyes: anicteric sclerae, moist conjunctivae; no lid-lag; PERRLA HENT: Normocephalic, Atraumatic; normal external ears, nares open, oropharynx NG tube in place Neck: supple, tracheal midline, no JVD Lungs: Bilateral coarse breath sounds CV: RRR Abdomen: Soft, midline surgical wound, drain in place, scrotal edema and skin tears Extremities: Bilateral leg edema Skin: Large scrotum, Lawrence in place Psych: Sedated Neuro: Sedated - Constitutional Vitals: Vital Signs Temp Pulse Resp BP Pulse Ox 98.3 F 98 H 12 110/63 100 01/22/21 03:49 01/22/21 11:00 01/22/21 11:00 01/22/21 11:00 01/22/21 11:00 Temperature -Last 24 Hours Temperature 98.3 F Temperature 99 F Temperature 98.6 F Temperature 100.9 F - Labs CBC & Chem 7: 01/22/21 10:08 01/22/21 10:08 Labs: Abnormal lab results 01/21/21 01/22/21 01/22/21 Range/Units 17:41 05:38 10:08 RBC (3.65-5.03) M/mm3 Hgb (11.8-15.2) gm/dl Hct (35.5-45.6) % RDW (13.2-15.2) % Sodium 153 H (137-145) mmol/L Chloride 119.5 H (98-107) mmol/L BUN 42 H (9-20) mg/dL Glucose 111 H (75-100) mg/dL POC Glucose 115 H 111 H (70-105) mg/dL Calcium 7.8 L (8.4-10.2) mg/dL 01/22/21 01/22/21 Range/Units 10:08 11:57 RBC 3.11 L (3.65-5.03) M/mm3 Hgb 8.9 L (11.8-15.2) gm/dl Hct 27.5 L (35.5-45.6) % RDW 16.9 H (13.2-15.2) % Sodium (137-145) mmol/L Chloride (98-107) mmol/L BUN (9-20) mg/dL Glucose (75-100) mg/dL POC Glucose 112 H (70-105) mg/dL Calcium (8.4-10.2) mg/dL
[2021-01-22] MEDS: HEPARIN 5,000 UNIT/1 ML VIAL SUB-Q SCH ×2 (13:11→21:50)
--- NOTE | 2021-01-22 14:10 | Progress Note ---
Assessment and Plan Assessment and plan: This is a 60-year-old male with obesity, hypertension, nicotine dependence, PVD s/p stent placement on dual antiplatelet therapy, hyperlipidemia, OA, GERD, ventral hernia and small bowel obstruction who was admitted with small bowel obstruction and peritonitis Neuro Postoperative pain; hx OA; hx acute/chronic abd pain; hx narcotic use at home due to a/c pain; hx med non adherence -IV PRN pain meds -avoid oversedation as they will inhibit his SBT -continuing to wean propofol and dex but pt does get agitated and pulls at lines and tubes - PO seroquel BID today- monitor response; hope is this will facilitate d/c of propofol -PRN pain medications -has been getting dilaudid scheduled every 4 hours for pain; for post op pain and high opiate use/tolerance; Dr Cherry would like to continue -normalize day night to limit delirium -remains in soft wrist restraints and mittens -nodding appropriately -following commands -moving all extremities -not that due to pts chronic pain he was on opiates at home (per family he took more than was prescribed); per his brother he would not fill his non pain medications so that he could get his opiates; hopefully now that his hernias have been repaired this will not be an ongoing issue the immediate post op recovery period. -Pt has a son (disclosed late in admission), pt lives with his mother; pt has a brother that is has been involved in care decisions. The brother states their mother is of age and not well herself so she has deferred care decisions to him Discharge planning per patient case manager impending LTAC placement CV on no pressors SR Hypertension -resume home meds for bp when appropriate -metop PRN hx CAD with stent -resume home asa and plavix when appropriate; was also on pletal hx Hyperlipidemia -resume home statin when appropriate Resp Post op hypoxic respiratory failure -intubated 12/20 -remains intubated -consider trach -daily sedation holiday -vent weaning and conditioning to PS as tolerated; daily per RT -ETT repositioned 24 cm at teeth is 1.5 cm above henrietta; pt has a lot of secretions today- white and thin in nature Nicotine dependence -Smoking cessation counseling when appropriate GI Small bowel obstruction with peritonitis, incarcerated Ventral hernia s/p repair -12/20 CT abdomen/pelvis showed high-grade small bowel obstruction related to severe complex ventral abdominal wall hernias, progressed in appearance from prior exam from 09/12/2020 without evidence of pneumonitis or pneumoperitoneum, patchy bibasilar airspace disease concern for atypical infectious process/pneumonitis -12/20 s/p ex lap, extensive lysis of adhesions, small bowel resection (removal of 70 cm necrotic small bowel segment), peritoneal lavage and ABThera abdominal wound VAC placement -12/23 s/p abdominal exploration, small bowel resection, peritoneal lavage, ABThera wound VAC placement -12/26 s/p ex lap, small bowel resection, peritoneal lavage, ABThera wound VAC placement -12/29 s/p ex lap, small bowel resection, small bowel anastomosis and ABThera wound VAC placement -01/01 s/p myocutaneous flap creation, abdominal wall component separation and placement of phasix mesh with surgery yesterday where his abdomen was closed and 2 LAURA drains were placed on either side of his midline between fascia and subcu tissue. -12/30 initiated on HD by nephro -01/09 CT abdomen/pelvis with contrast shows large organized virtually bland appearing fluid collection along the anterior abdomen measuring up to 29 cm in the craniocaudal dimension and 2.6 cm in transverse dimension which may reflect postoperative seroma or hematoma, no associated gas to suggest superimposed infection, no contrast is seen within the collection to suggest bowel perf oration -01/09 CT chest with contrast shows CHF with small left and trace right pleural effusions and diffuse groundglass opacities in airspace consolidation consistent with pulmonary edema (superimposed multifocal pneumonia is not excluded), diffuse anasarca likely related to third spacing of fluid. Midline abdominal incision -Ulceration to midline abdominal incision with purulent drainage -01/17 wound culture sent with primary growth of gram-negative rods -WOCN consulted, appreciate recommendations -Wound care per nursing -Dr Tena aware of wound status-continue wound care per WOCN; nav should remain in for now; LAURA drains to remain until pt extubated Protein calorie malnutrition -S/p TPN- discontinued as he is tolerating TF -dobhoff replaced this AM- KUB ordered -Tube feedings per nutrition recs changed TF due to diarrhea fiber hx GERD -continue PPI diarrhea -appears to be TF diarrhea -fiber to continue -BMS in place- remove steffen Acute Kidney Injury, due to ATN improving; hypoMg; hypoK; hyperna -12/23 fracture excretion of sodium calculated at 0.16 secondary prerenal state -nephrology following -HD d/c given renal recovery -Strict intake and output -net neg 2L over 24 hours; polyuria continues -Daily weights -Trend Cr -polyuria Hypernatremia -D5W -Trend sodium -FWF Hypoalbuminemia -ntr consulted Heme Anemia -Transfuse for hemoglobin less than 7 -01/09 stool occult positive -GI aware -Trend Hgb -no bleeding on exam (stools taylor in color) VTE prophylaxis -cont SCD and ASCENCION ID Septic Shock on admit; peritonitis; leukocytosis: bacteremia/wound/UTI -ID following -Antibiotic therapy per ID -changed to dawna 01-18 -follow cultures -urine culture sent -yg dc 01-18 -haley changed 01-18 -12/20 tracheal aspirate with mucus species which does not to be treated per ID -12/20 blood cultures x2 with no growth, urine culture with usual skin giorgio -01/16 blood cultures x2 with gram-negative jesus, abdominal wound culture with 2 species of gram-negative rods -COVID-19 neg on admit -trend temp and WBC curve -wound care per WOCN and nursing Endo hx Obesity Hyperglycemia -SSI PRN -avoid hypoglycemia PLAN LTAC ON Saturday, 01/24 GI/DVT prophylaxis: PPI, SCDs and SQH Disposition: ICU, pending LTAC Lines: PICC placed 01/05, Haley catheter; BMS The high probability of a clinically significant, sudden or life threatening deterioration of the [multi] system(s) required my full and direct attention, intervention and personal management. The aggregate critical care time was [35] minutes. This time is in addition to time spent performing reported procedures but includes the following: [x] Data Review and interpretation [x] Patient assessment and monitoring of vital signs [x] Documentation [x] Medication orders and management History Interval history: This is a 60-year-old male with obesity, hypertension, nicotine dependence, PVD s/p stent placement on dual antiplatelet therapy, hyperlipidemia, OA, GERD, joy tral hernia with SBO who presents to the emergency department on 12/20 with severe, diffuse, worsened with movement, slightly relieved with rest abdominal pain rated at 10/10 with decreased oral intake, nausea and multiple episodes of vomiting. Patient underwent a CT of his abdomen/pelvis and was found to have evidence of small bowel obstruction as well as clinical findings consistent with acute peritonitis. Patient was admitted to the hospital service with acute peritonitis and incarcerated ventral hernia with consults to [facility] and surgery. 12/21: Patient is status post ex lap, extensive lysis of adhesions, small bowel resection, peritoneal lavage and ABThera abdominal wound VAC placement by Dr. Tena and Dr. Brumfield on 12/20 with removal of a 70 cm segment of necrotic small bowel. Patient was intubated and sedated on propofol 10/ fent 4 at the time of my examination on Assist-control, rate of 24, PEEP of 6, tidal volume of 550 and FiO2 35%. Patient needed to be deeply sedated and there was a became hypotensive. Patient was started on patient for support with Levophed and received bolus of IVF. 12/22: Patient was febrile to 103 and vancomycin and Diflucan were added by [facility] and infectious disease was consulted and they increased Zosyn and stop vancomycin. Patient was given additional 1 L bolus today for CVP goal of 10-12. At the time of examination patient was on Levophed, propofol and fentanyl CMV tidal volume 500, rate of 24, PEEP of 6 and FiO2 65%. Plan for OR tomorrow 12/23: Patient Cr/BUN noted to be increased and nephrology was consulted. ID decreased the zosyn dose d/r renal function. Urine studies ordered. Ivy placed today. LR boluses per [facility], TPN to be started. Fractional excretion of sodium calculated at 0.16 indicating prerenal state 12/24: Patient is status post abdominal exploration, small bowel resection of 4 to 5 cm segment of dusky small bowel, peritoneal lavage and ABThera wound VAC placement on 12/23 with surgery, leukocytosis and renal function is improving, worsening hypernatremia and hyperchloremia. Patient will be started on TPN today. We will place on SSI/Accu-Cheks every every 6 hours. Patient noted to be nearly maxed on Levophed and vasopressin was ordered. Remains sedated and on MV 12/25: Leukocytosis continues to improve, given Ca Gluconate today, Hypernatremia, Cr and hyperchorlemia slightly worsened today. Patient is sedated with propofol and fentanyl on CMV TV 500, Rate 24, Peep 6, FiO2 50%. He remains on levophed. Possible OR Saturday. 12/26 Patient presented with small bowel obstruction, is status post ex lap, extensive lysis of adhesions, small bowel resection, peritoneal lavage and ABThera abdominal wound VAC placement by Dr. Tena and Dr. Brumfield on 12/20 with removal of a 70 cm segment of necrotic small bowel. Was taken back to OR on 12/23 s/p Abdominal exploration, Small bowel resection, Peritoneal lavage, ABThera wou nd VAC placement. he is still having fever. Poss going to OR again today. Sepsis managed by ID. He is on Diflucan, Zosyn. He is on Levophed. 6/ s/p ex lap, extensive lysis of adhesions, small bowel resection (removal of 70 cm necrotic small bowel segment), peritoneal lavage and ABThera abdominal wound VAC placement. Still having fever Still on vent 12/28: Patient is orally intubated with AC mode ventilation rate 24, tidal volume 500, FiO2 75% and PEEP of 6. POD#8 s/p ex lap and small bowel resection for necrotic bowel secondary to incarcerated ventral hernia left with open abdomen. POD#5 s/p abdominal exploration with segmental small bowel resection. abthera placement POD#2 s/p abdominal exploration, small bowel resection for ischemia, abthera placement -CCM, surgery, infectious disease, nephrology consulted, appreciate recommendations -IV abx per ID: Zosyn, fluconazole -NGT to LIWS -NPO for now, TPN -SSI, Accucheck q6 -Vasopressor support with levophed -On mechanical ventilation, wean as tolerated, VAP bundle -Sedated with propofol and analgesia with fentanyl drip -Trend CBC, BMP, Mg, Phos -GI/DVT prophylaxis: PPI, SCDs to bilateral lower extremities while in bed, avoid chemical anticoagulation to cleared by surgery 12/29: Patient underwent abdominal exploration, small bowel resection, small bowel anastomosis and ABThera wound VAC placement this a.m. Patient remains on AC mode ventilation with a rate of 24, tidal volume 500, FiO2 65% and PEEP of 6. Continue antibiotics per ID recommendations. Continue vasopressor support as needed. Continue TPN for nutritional support. 12/30: Patient currently with AC mode ventilation rate of 24, tidal volume 500, FiO2 60% and PEEP of 6. Patient underwent further surgery yesterday with another abdominal exploration, small bowel resection, small bowel anastomosis and replacement of the ABThera wound VAC. Patient continues to require vasopressor support with vasopressin and Levophed. Continue TPN for nutrition. Continue propofol and fentanyl for sedation. Continue Zosyn per ID recommendations. INITIATED ON HD PER NEPHRO 12: Patient currently with AC mode ventilation rate of 24, tidal volume 500, FiO2 50% and PEEP of 6. POD#12 s/p ex lap and small bowel resection for necrotic bowel secondary to incarcerated ventral hernia left with open abdomen. POD#9 s/p abdominal exploration with segmental small bowel resection. abthera placement POD#3 s/p abdominal exploration, small bowel resection for ischemia, abthera placement POD#2 s/p abdominal exploration with small bowel anastamosis and abthera vac placement Continue hemodialysis per nephrology recommendations. Surgery plans for abdominal washout and bowel examination on Saturday. If anastamosis looks viable and no other issues, surgery plans to close his abdomen. 01/01: Continue current ventilator settings per pulmonary monitor ABG. Continue antibiotics per ID recommendations. Surgery plans for abdominal washout and bowel examination. If anastamosis looks viable and no other issues, surgery plans to close his abdomen. Wean pressors to maintain MAP > 65. Continue TPN for nutritional support. Hemodialysis per nephrology recommendations. Progno sis remains guarded. 01/02: At the time my examination patient was only on vasopressin for vasopressor support, sedated on 30 mcg of propofol and 4 mcg of fentanyl. Patient was on CMV tidal volume 500, rate of 12, PEEP of 10 and 50% FiO2. Patient remains on TPN and with NG tube to low intermittent suction. Patient underwent a myocutaneous flap creation, abdominal wall component separation and placement of phasix mesh with surgery yesterday where his abdomen was closed and 2 LAURA drains were placed on either side of his midline between fascia and subcu tissue. Per infectious his antibiotics will continue until 5 days postop from a final surgery. Patient has increasing leukocytosis which are likely reactive to surgery and patient will have hemodialysis today for clearance and volume removal. Patient sedation and mechanical ventilation will be weaned for extubation. 01/03: Patient H/H is 6.2/18.5 and he is being transfused 2 units PRBC with hemodialysis today. Patient has slight hypokalemia but TPN has been adjusted to address potassium. Patient continues to have hyponatremia, hypochloremia and hyperphosphatemia closely improved. The time my examination patient sedated on fentanyl and propofol and LAURA drainage noted to be more serosanguineous. Patient was on assist control with TV 500, PEEP of 8, rate of 28 and FiO2 40%. Patient remains off vasopressor support. No acute overnight events reported 01/04: Patient sedated on propofol and fentanyl. RN reported bowel movement overnight. Precedex drip started. NG tube clamped and may start trickle tube feedings later if patient does not have high residuals. CCM continues to wean ventilation as tolerated. On my exam patient is on CMV tidal volume 500 rate of 28, PEEP of 8 and 40% FiO2. Patient is having periods of agitation and FiO2 had to be increased for hypoxia. Mucor species in tracheal aspirate but ID believes this is colonization. 01/05: Patient is severely agitated and received multiple IV push fentanyl. P atient was ultimately started on propofol. He received hemodialysis today. Patient had approximately 400 mL of NG output overnight. NG tube continues to be on suction. Leukocytosis worsened today. 01/06: Patient is agitated despite fentanyl pushes and Dilaudid was ordered, patient noted to be anemic with a hemoglobin of 6.5 and will be transfused 1 unit PRBC today. Nephrology does not plan to dialyze him today and to keep him on Saturday, , Saturday schedule. No acute events reported overnight. Patient NG tube residuals continue to decrease and surgery has cleared for trickle tube feeds which has been communicated to dietitian. 01/07: This this morning H/H resulted at 6.7/20.1 after 1 unit PRBC 6.7/21.8. Patient's ABG today shows respiratory acidosis and vent settings have been changed by [facility]. Patient should receive hemodialysis today as he is on Saturday schedule. Overnight RN reported 700 mL of NG tube output over 12 hours. We will hold off on trickle feeds and continue TPN. At the time of my examination patient was sedated on propofol, fentanyl, Precedex and on CMV tidal volume 550, rate of 10, PEEP of 8 and 35% FiO2. We will order coags and stool guaiac to further investigate anemia. -01/09 stool pos for guiac; CT Chest/abd/pelvis -01/10: Patient this morning with elevated BP, likely secondary to pain vs ?Hx of Htn, Hydralazine PRN ordered and added to the patient, will monitor. Continue pain control. Wound care management and vent weaning when ok with surgery and Roller Repairer 01/12: Continue supportive care including pain control. Monitor for bowel movement. Continue off antibiotics per ID monitor. Shell Trim Operator following for HD. 01/13/21 patient is seen and examined. Patient is still on vent. Wean to extubate as per critical care. Patient is off antibiotic as per infectious disease. Status post dialysis catheter placed in the right IJ. HD as per nephrology. Continue current management. Recheck CBC BMP in the morning. 01/14/21 patient seen and examined. Patient is still on vent. Patient is agitated. We will try to wean the sedation. We will start metoprolol 5 mg p.o. every 8 hours as needed for blood pressure. Patient is off antibiotic as per infectious disease. Continue hemodialysis as per nephrology. Continue current management. Critical care follow-up. Prognosis is guarded. Recheck CBC BMP in the morning 01/15: Remains with guarded prognosis, no clear evidence of renal recovery, still on the vent. Monitor H/H and repeat CT A/P if downward trend. Replace K. 01/16: Patient is hypokalemic today at 2.9, patient's urinalysis reveals UTI and patient is already on cefepime, vancomycin and fluconazole per ID. Patient's urine output noted to be 8041-3590 mL over the past couple days. Nephrology requested to hold off removal of Haley catheter as the patient seems to be in the diuretic phase of ATN and will withhold dialysis for now and evaluate. At the time my examination patient is sedated on propofol and Precedex on CMV tidal line 500, rate of 24, PEEP of 6 and 30% FiO2. Patient was febrile last night with a T-max of 102.7. Patient was cultured overnight. Wound care consult for a bd wound with purulent drainage, culture sent. 01/17: Patient is again hypokalemic and hypomagnesemic which was repleted with K- Phos and KCl overnight. Patient has hypernatremia. Nephrology has started the patient on hypotonic IVF with potassium. Right IJ Vas-Cath ordered to be removed. Patient's abdominal culture and blood cultures from 01/16 are growing gram-negative rods. The time my examination patient was on propofol and dexamethasone on assist control. T-max 102.7. 01/18 Discharge planning for LTAC; weaning propofol 01/19 no acute events overnight 01/20: LTACH transfer today, wean propofol 01/21: Patient discharged to LTAC has been delayed (see note). Patient was febrile overnight however we will maintain his current regimen. Patient has hypernatremia and has been started on D5W by nephrology. Possible transfer to LTAC Saturday. 01/22: No overnight events, patient to go to LTAC, remains hypernatremic, continue fluids. Hospitalist Physical - Physical exam Narrative exam: General appearance: Obese, no acute distress, well-nourished EENT: PERRL, EOM intact, hearing intact Neck: Present: supple, normal ROM Respiratory: Patient intubated, bilateral CTA, negative: rales, rhonchi, wheezing Cardiovascular: Regular rate/rhythm, Normal S1 & S2. No gallop, rub Extremities: no ischemia, No edema, normal temperature, normal color, Full ROM Abdominal: Abdominal LAURA drain with serous drainage. Soft, no tenderness, non- distended : Scrotal edema with erythema, Haley catheter Integumentary: Present: clear, warm, dry no wounds, no erythema noted Neurologic: Patient is alert, intubated, responsive to verbal cues - Constitutional Vitals: Temp Pulse Resp BP Pulse Ox 98.3 F 98 H 12 110/63 100 01/22/21 03:49 01/22/21 11:00 01/22/21 11:00 01/22/21 11:00 01/22/21 11:00 General appearance: Present: obese, other (Agitated on vent) HEART Score - HEART Score EKG: Normal Age: < 45 Risk factors: No known risk factors Troponin: Troponin T < 0.010 ng/mL (0.00-0.029) 12/20/20 13:58 Troponin: < normal limit - Critical Actions Critical Actions: 0-3 pts:0.9-1.7%risk of adverse cardiac event.Candidate for discharge Results - Labs CBC & Chem 7: 01/22/21 10:08 01/22/21 10:08 Labs: Laboratory Last Values WBC 9.6 K/mm3 (4.5-11.0) 01/22/21 10:08 RBC 3.11 M/mm3 (3.65-5.03) L 01/22/21 10:08 Hgb 8.9 gm/dl (11.8-15.2) L 01/22/21 10:08 Hct 27.5 % (35.5-45.6) L 01/22/21 10:08 MCV 88 fl (84-94) 01/22/21 10:08 MCH 29 pg (28-32) 01/22/21 10:08 MCHC 32 % (32-34) 01/22/21 10:08 RDW 16.9 % (13.2-15.2) H 01/22/21 10:08 Plt Count 310 K/mm3 (140-440) 01/22/21 10:08 Lymph % (Auto) 6.5 % (13.4-35.0) L 01/14/21 05:00 Bell % (Auto) 2.5 % (0.0-7.3) 01/14/21 05:00 Eos % (Auto) 7.7 % (0.0-4.3) H 01/14/21 05:00 Baso % (Auto) 0.6 % (0.0-1.8) 01/14/21 05:00 Lymph # (Auto) 0.8 K/mm3 (1.2-5.4) L 01/14/21 05:00 Bell # (Auto) 0.3 K/mm3 (0.0-0.8) 01/14/21 05:00 Eos # (Auto) 1.0 K/mm3 (0.0-0.4) H 01/14/21 05:00 Baso # (Auto) 0.1 K/mm3 (0.0-0.1) 01/14/21 05:00 Add Manual Diff Complete 01/10/21 04:01 Total Counted 100 01/10/21 04:01 Seg Neutrophils % 82.7 % (40.0-70.0) H 01/14/21 05:00 Seg Neuts % (Manual) 95.0 % (40.0-70.0) H 01/10/21 04:01 Band Neutrophils % 2.0 % 01/10/21 04:01 Lymphocytes % (Manual) 3.0 % (13.4-35.0) L 01/10/21 04:01 Monocytes % (Manual) 1.0 % (0.0-7.3) 01/09/21 10:10 Metamyelocytes % 1.0 % 01/09/21 10:10 Myelocytes % 1.0 % 01/09/21 10:10 Nucleated RBC % Not Reportable 01/10/21 04:01 Seg Neutrophils # 10.2 K/mm3 (1.8-7.7) H 01/14/21 05:00 Seg Neutrophils # Man 12.0 K/mm3 (1.8-7.7) H 01/10/21 04:01 Band Neutrophils # 0.3 K/mm3 01/10/21 04:01 Lymphocytes # (Manual) 0.4 K/mm3 (1.2-5.4) L 01/10/21 04:01 Abs React Lymphs (Man) 0.0 K/mm3 01/10/21 04:01 Monocytes # (Manual) 0.0 K/mm3 (0.0-0.8) 01/10/21 04:01 Eosinophils # (Manual) 0.0 K/mm3 (0.0-0.4) 01/10/21 04:01 Basophils # (Manual) 0.0 K/mm3 (0.0-0.1) 01/10/21 04:01 Metamyelocytes # 0.0 K/mm3 01/10/21 04:01 Myelocytes # 0.0 K/mm3 01/10/21 04:01 Promyelocytes # 0.0 K/mm3 01/10/21 04:01 Blast Cells # 0.0 K/mm3 01/10/21 04:01 WBC Morphology Not Reportable 01/10/21 04:01 Hypersegmented Neuts Not Reportable 01/10/21 04:01 Hyposegmented Neuts Not Reportable 01/10/21 04:01 Hypogranular Neuts Not Reportable 01/10/21 04:01 Smudge Cells Not Reportable 01/10/21 04:01 Toxic Granulation Not Reportable 01/10/21 04:01 Toxic Vacuolation Not Reportable 01/10/21 04:01 Dohle Bodies Not Reportable 01/10/21 04:01 Pelger-Huet Anomaly Not Reportable 01/10/21 04:01 Mirian Rods Not Reportable 01/10/21 04:01 Platelet Estimate Consistent w auto 01/10/21 04:01 Clumped Platelets Not Reportable 01/10/21 04:01 Plt Clumps, EDTA Not Reportable 01/10/21 04:01 Large Platelets Not Reportable 01/10/21 04:01 Giant Platelets Not Reportable 01/10/21 04:01 Platelet Satelliting Not Reportable 01/10/21 04:01 Plt Morphology Comment Not Reportable 01/10/21 04:01 RBC Morphology Not Reportable 01/10/21 04:01 Dimorphic RBCs Not Reportable 01/10/21 04:01 Polychromasia Not Reportable 01/10/21 04:01 Hypochromasia Few 01/10/21 04:01 Poikilocytosis Not Reportable 01/10/21 04:01 Anisocytosis Few 01/10/21 04:01 Microcytosis Few 01/10/21 04:01 Macrocytosis Not Reportable 01/10/21 04:01 Spherocytes Not Reportable 01/10/21 04:01 Pappenheimer Bodies Not Reportable 01/10/21 04:01 Sickle Cells Not Reportable 01/10/21 04:01 Target Cells Not Reportable 01/10/21 04:01 Tear Drop Cells Not Reportable 01/10/21 04:01 Ovalocytes Not Reportable 01/10/21 04:01 Helmet Cells Not Reportable 01/10/21 04:01 [place] Bodies Not Reportable 01/10/21 04:01 [place] Rings Not Reportable 01/10/21 04:01 [place] Cells Not Reportable 01/10/21 04:01 Bite Cells Not Reportable 01/10/21 04:01 Crenated Cell Not Reportable 01/10/21 04:01 Elliptocytes Not Reportable 01/10/21 04:01 Acanthocytes (Spur) Not Reportable 01/10/21 04:01 Rouleaux Not Reportable 01/10/21 04:01 Hemoglobin C Crystals Not Reportable 01/10/21 04:01 Schistocytes Not Reportable 01/10/21 04:01 Malaria parasites Not Reportable 01/10/21 04:01 Dylon Bodies Not Reportable 01/10/21 04:01 Hem Pathologist Commnt No 01/10/21 04:01 PT 15.4 Sec. (12.2-14.9) H 01/10/21 04:01 INR 1.17 (0.87-1.13) H 01/10/21 04:01 APTT 40.2 Sec. (24.2-36.6) H 01/10/21 04:01 Fibrinogen 817 mg/dl (211-480) H 01/10/21 04:01 ABG pH 7.512 (7.320-7.450) H 01/19/21 05:00 POC ABG pCO2 32.5 mmHg (32.0-48.0) 01/19/21 05:00 ABG pCO2 37.9 mm Hg 01/05/21 03:50 POC ABG pO2 47.8 mmHg (83-108) L 01/19/21 05:00 ABG pO2 136.8 mm Hg (80.0-90.0) H 01/05/21 03:50 POC ABG HCO3 25.5 01/19/21 05:00 ABG HCO3 22.4 mmol/L (20.0-26.0) 01/05/21 03:50 ABG O2 Saturation 84.4 (0-100) 01/19/21 05:00 ABG O2 Content 9.8 (0.0-44) 01/05/21 03:50 POC ABG Base Excess 2.6 01/19/21 05:00 ABG Base Excess -2.3 mmol/L (-2.0-3.0) L 01/05/21 03:50 ABG Hemoglobin 8.9 (12.0-17.5) L 01/19/21 05:00 ABG Oxyhemoglobin 83.3 (94-98) L 01/19/21 05:00 ABG Carboxyhemoglobin 1.5 % (0.0-5.0) 01/05/21 03:50 ABG Methemoglobin 0.3 (0.0-1.5) 01/19/21 05:00 ABG Sodium 151.5 mmol/L (136.0-145.0) H 01/19/21 05:00 ABG Potassium 2.9 mmol/L (3.40-4.50) L 01/19/21 05:00 ABG Chloride 117.0 mmol/L (98-107) H 01/19/21 05:00 ABG Glucose 111 mg/dL (65-95) H 01/19/21 05:00 Oxyhemoglobin 96.7 % (95.0-99.0) 01/05/21 03:50 Carboxyhemoglobin 1.0 (0.5-1.5) 01/19/21 05:00 FiO2 50 % 01/05/21 03:50 FiO2 % 30.0 01/19/21 05:00 Sodium 153 mmol/L (137-145) H 01/22/21 10:08 Potassium 4.3 mmol/L (3.6-5.0) 01/22/21 10:08 Chloride 119.5 mmol/L (98-107) H 01/22/21 10:08 Carbon Dioxide 22 mmol/L (22-30) 01/22/21 10:08 Anion Gap 16 mmol/L 01/22/21 10:08 BUN 42 mg/dL (9-20) H 01/22/21 10:08 Creatinine 1.2 mg/dL (0.8-1.3) 01/22/21 10:08 Estimated GFR > 60 ml/min 01/22/21 10:08 BUN/Creatinine Ratio 35 % 01/22/21 10:08 Glucose 111 mg/dL (75-100) H 01/22/21 10:08 POC Glucose 112 mg/dL (70-105) H 01/22/21 11:57 Lactic Acid 1.70 mmol/L (0.7-2.0) 12/20/20 16:20 Calcium 7.8 mg/dL (8.4-10.2) L 01/22/21 10:08 Ionized Calcium 3.3 mg/dL (4.8-5.6) L 12/27/20 14:40 Phosphorus 4.40 mg/dL (2.5-4.5) 01/17/21 04:30 Magnesium 1.90 mg/dL (1.7-2.3) 01/20/21 07:25 Total Bilirubin 0.50 mg/dL (0.1-1.2) 01/16/21 04:30 AST 19 units/L (5-40) 01/16/21 04:30 ALT 18 units/L (7-56) 01/16/21 04:30 Alkaline Phosphatase 118 units/L (35-129) 01/16/21 04:30 Troponin T < 0.010 ng/mL (0.00-0.029) 12/20/20 13:58 Total Protein 6.4 g/dL (6.3-8.2) 01/16/21 04:30 Albumin 2.1 g/dL (3.9-5) L 01/16/21 04:30 Albumin/Globulin Ratio 0.5 % 01/16/21 04:30 Triglycerides 216 mg/dL (2-149) H 01/17/21 04:30 Arterial Blood Glucose 111 mg/dL (65-95) H 01/19/21 05:00 Arterial Blood Ionized Calcium 4.3 mg/dL (4.6-5.3) L 01/19/21 05:00 Urine Color Yellow (Yellow) 01/20/21 07:25 Urine Turbidity Clear (Clear) 01/20/21 07:25 Urine pH 6.0 (5.0-7.0) 01/20/21 07:25 Ur Specific Muir 1.008 (1.003-1.030) 01/20/21 07:25 Urine Protein 30 mg/dl mg/dL (Negative) 01/20/21 07:25 Urine Glucose (UA) Neg mg/dL (Negative) 01/20/21 07:25 Urine Ketones Neg mg/dL (Negative) 01/20/21 07:25 Urine Blood Lg (Negative) 01/20/21 07:25 Urine Nitrite Neg (Negative) 01/20/21 07:25 Urine Bilirubin Neg (Negative) 01/20/21 07:25 Urine Urobilinogen < 2.0 mg/dL (<2.0) 01/20/21 07:25 Ur Leukocyte Esterase Mod (Negative) 01/20/21 07:25 Urine WBC (Auto) 30.0 /HPF (0.0-6.0) H 01/20/21 07:25 Urine RBC (Auto) 5.0 /HPF (0.0-6.0) 01/20/21 07:25 U Epithel Cells (Auto) < 1.0 /HPF (0-13.0) 01/20/21 07:25 Urine Bacteria (Auto) 1+ /HPF (Negative) 01/20/21 07:25 Urine WBC Clumps 3+ /HPF 01/16/21 Unknown Ur Renal Epithelial Cell 8 /LPF 01/16/21 Unknown Triple Phos Crystals 2+ 12/23/20 12:15 Hyaline Casts 11 /LPF 01/16/21 Unknown Urine Mucus Few /HPF 01/16/21 Unknown Urine Eosinophils None seen (None Seen) 12/23/20 12:15 Urine Creatinine 17.6 mg/dL (0.1-20.0) 01/19/21 Unknown Urine Sodium 87 mmol/L 01/19/21 Unknown Fraction Sodium Excret 0.2 12/23/20 12:15 Random Vancomycin 5.8 ug/mL (0-40.0) 01/17/21 04:30 Coronavirus (PCR) Negative (Negative) 12/21/20 Unknown Hepatitis A IgM Ab Non-reactive (NonReactive) 12/30/20 14:40 Hep Bs Antigen Non-reactive (Negative) 12/30/20 14:40 Hep B Core IgM Ab Non-reactive (NonReactive) 12/30/20 14:40 Hepatitis C Antibody Non-reactive (NonReactive) 12/30/20 14:40 Blood Type A NEGATIVE 01/06/21 11:00 Antibody Screen Negative 01/06/21 11:00 Crossmatch See Detail 01/06/21 11:00 Microbiology: Microbiology 01/20/21 13:01 Peripheral/Venous Blood Culture - Preliminary NO GROWTH AFTER 48 HOURS 01/20/21 11:43 Peripheral/Venous Blood Culture - Preliminary NO GROWTH AFTER 48 HOURS 01/16/21 04:40 Peripheral/Venous Blood Culture - Preliminary A.baumannii/Haemolyticus Citrobacter Freundii Complex 01/16/21 04:50 Peripheral/Venous Blood Culture - Preliminary A.baumannii/Haemolyticus Citrobacter Freundii Complex 01/16/21 15:00 Abdomen Anaerobic Culture - Final 01/19/21 11:40 Urine,Catheterized - Indwelling Catheter Urine Culture - Fin al NO GROWTH AFTER 48 HOURS Haley/IV: Voiding Method Indwelling Catheter Active Medications - Current Medications Current Medications: Generic Name Dose Route Start Last Admin Trade Name Freq PRN Reason Stop Dose Admin Acetaminophen 650 mg 01/16/21 03:57 01/21/21 16:25 Acetaminophen 325 Mg/10.15 Ml Oral Liqd Unit Dose FEEDTUBE 650 mg Q6H PRN Administration Non Cardiac Pain or Temp>100.5 Lipase/Protease/Amylase 1 each 01/07/21 08:44 Lipase 10,500/Protease 25,000/Amylase 43,750 (Units) Dr Maharaj FEEDTUBE PRN PRN For Clogged Feeding Tube Dextrose 50 ml 12/24/20 10:49 Dextrose 50% In Water (25gm) 50 Ml Syringe IV Q30MIN PRN Hypoglycemia Protocol Famotidine 20 mg 01/17/21 10:00 01/22/21 09:29 Famotidine 20 Mg Tab PO 20 mg BID ASCENCION Administration Fentanyl 1 applic 01/11/21 14:00 01/20/21 09:49 Fentanyl 50 Mcg/Hr Patch 72hr TD 1 applic Q3D ASCENCION Administration Heparin Sodium (Porcine) 5,000 unit 01/06/21 14:00 01/22/21 13:11 Heparin 5,000 Unit/1 Ml Vial SUB-Q 5,000 unit Q8HR ASCENCION Administration Hydromorphone HCl 0.5 mg 01/12/21 10:10 01/17/21 15:00 Hydromorphone 1 Mg/1 Ml Inj IV 0.5 mg Q4H PRN Administration Pain , Severe (7-10) Hydromorphone HCl 0.25 mg 01/12/21 10:11 01/15/21 15:40 Hydromorphone 1 Mg/1 Ml Inj IV 0.25 mg Q4H PRN Administration Pain, Moderate (4-6) Hydromorphone HCl 1 mg 01/19/21 11:00 01/22/21 13:11 Hydromorphone 1 Mg/1 Ml Inj IV 1 mg Q4H ASCENCION Administration Hydrophilic Ointment 1 applic 12/20/20 21:58 Lip Therapy Vaseline TP Q2HR PRN Dry Lips Propofol 1,000 mg in 100 mls @ 3.606 mls/hr 12/20/20 22:00 01/19/21 15:12 Diprivan 10 Mg/Ml IV 0 mcg/kg/min TITR ASCENCION 0 mls/hr Titration Protocol 5 MCG/KG/MIN Dexmedetomidine HCl 1,000 mcg/ 260 mls @ 7.322 mls/hr 01/15/21 01:00 01/22/21 06:44 Sodium Chloride IV 1.2 mcg/kg/hr TITRATE ASCENCION 43.93 mls/hr Administration Protocol 0.2 MCG/KG/HR Cefepime HCl 2 gm in 100 mls @ 200 mls/hr 01/20/21 12:00 01/22/21 09:29 Cefepime/Ns 2 Gm/100 Ml IV 01/26/21 22:29 200 mls/hr Q12HR ASCENCION Administration Protocol Dextrose 1,000 mls @ 75 mls/hr 01/21/21 12:00 01/22/21 03:34 D5w IV 75 mls/hr DIRECT ASCENCION Administration Insulin Human Regular 0 units 12/28/20 00:00 01/22/21 00:00 Insulin Regular, Human 100 Units/1 Ml SUB-Q Not Given Q6H ASCENCION Protocol Metoprolol Tartrate 5 mg 01/14/21 13:37 01/15/21 12:42 Metoprolol Tartrate 5 Mg/5 Ml Inj IV 5 mg Q6H PRN Administration SBP >/=160 Multi-Ingred Cream/Lotion/Oil/Oint 1 applic 12/20/20 21:58 01/03/21 01:13 Mineral Oil/Petrolatum, White Ophth Oint 3.5 Gm OU 1 applic Q4HR PRN Administration Dry Eye(s) Quetiapine Fumarate 50 mg 01/19/21 12:00 01/22/21 09:29 Quetiapine 25 Mg Tab PO 50 mg BID ASCENCION Administration Simple Syrup 15 ml 01/07/21 08:44 Simple Syrup 15 Ml FEEDTUBE PRN PRN Hypoglycemia Sodium Bicarbonate 325 mg 01/07/21 08:44 Sodium Bicarbonate 325 Mg Tab FEEDTUBE PRN PRN For Clogged Feeding Tube Sodium Chloride 10 ml 12/20/20 22:00 01/21/21 22:00 Sodium Chloride 0.9% 10 Ml Flush Syringe IV 10 ml BID ASCENCION Administration Sodium Chloride 10 ml 12/20/20 16:42 01/17/21 06:01 Sodium Chloride 0.9% 10 Ml Flush Syringe IV 10 ml PRN PRN Administration LINE FLUSH Nutrition/Malnutrition Assess - Dietary Evaluation Nutrition/Malnutrition Findings: Nutrition Notes Start: 12/21/20 09:06 Freq: Status: Active Protocol: Document 01/19/21 10:29 PIETRO (Rec: 01/19/21 10:37 PIETRO [id number]) Nutrition Notes Need for Assessment generated from: MD Order Initial or Follow up Reassessment Current Diagnosis Acute Kidney Injury,Coronary Artery Disease,Sepsis, Hypertension,Small Bowel Obstruction,Hyperlipidemia Other Pertinent Diagnosis gangrenous small bowel, s/p small bowel ressection, peritonitis Current Diet Nepro 1.8 at 40 ml/hr Labs/Tests Na 156 K 3.2 BUN 50 Cr 1.6 Mg 1.5 Pertinent Medications 40 mEq K Propofol Height 6 ft Weight 100.3 kg [place] Body Weight (kg) 80.90 BMI 29.9 Weight Status Obese Subjective/Other Information Consult for TF change d/t persistent diarrhea. Pt has been on Dulcolax from 12/30-. Percent of energy/protein needs met: 100%/44% Burn Absent Trauma Absent GI Symptoms Diarrhea Current % PO Negligible Minimum of two criteria No #2 Nutrition Diagnosis Increased nutrient needs ( specify in comment below) Diagnosis Progress(for reassessment Continues documentation) #1 Nutrition Diagnosis Inadequate oral intake Diagnosis Progress(for reassessment Continues documentation) Is patient on ventilator? Yes Is Patient Ambulatory and/or Out of Bed No REE-([facility]-confined to bed) 2231.664 Kcal/Kg value to use for calculation 15 Approximate Energy Requirements Using 1505 kcal/Kg Calculation Used for Recommendations Kcal/kg Additional Notes Pro needs >162g(>2g/kgIBW: 80. 90) Fluid needs per MD. Nutrition Intervention Change Diet Order: Change TF Nutrition Support: Osmolite 1.5 at 50 ml/hr. Flush 200 ml q2h for hypernatermia or per MD. Once resolved, flush 150 ml q4h or per MD. Kcal 1,800 Protein (gm) 75 Fluid (mL) 914 Goal #1 TF tolerance Goal #2 Meet at least 75% of kcal and protein needs via TF Follow-Up By: 01/23/21 Additional Comments FU for TF tolerance, wt and renal labs
--- NOTE | 2021-01-22 14:41 | XRay Report ---
ABDOMEN 1 VIEW(S) INDICATION / CLINICAL INFORMATION: NGT placement. COMPARISON: None available. FINDINGS: TUBES / LINES: NG tube tip at the proximal body of the stomach. BOWEL GAS PATTERN: No significant abnormality. ADDITIONAL FINDINGS: No significant additional findings. IMPRESSION: Satisfactory NG tube placement. Signer Name: Shar Willis MD Signed: 01/22/2021 2:37 PM Workstation Name: [id number]
[2021-01-23] MEDS: FREE WATER PO SCH ×7 (02:50→21:08)
[2021-01-23] MEDS: HYDROmorphone 1 MG/1 ML INJ IV SCH ×5 (03:10→18:35)
[2021-01-23] MEDS: HEPARIN 5,000 UNIT/1 ML VIAL SUB-Q SCH ×3 (08:11→21:15)
[2021-01-23] MEDS: INSULIN REGULAR, HUMAN 100 UNITS/1 ML SUB-Q SCH ×4 (08:11→18:04)
[2021-01-23] MEDS: dexmedeTOMIDine 1,000 MCG in SODIUM CHLORIDE 0.9% 250ML 250 ML IV SCH ×3 (08:18→21:57)
--- NOTE | 2021-01-23 09:07 | Progress Note ---
Assessment and Plan Cultures: 12/20/2020 blood culture: No growth 12/20/2020 urine culture: Usual skin giorgio 12/20/2020 tracheal aspirate culture: Mucor 01/16/2021 blood culture: Acinetobacter, Citrobacter 01/16/2021 wound culture: Pseudomonas aeruginosa, Proteus 01/19/2021 blood culture: No growth 01/20/2021 urine culture: no growth A/P: 60-year-old male with obesity, hypertension, tobacco abuse, coronary artery disease, admitted to the hospital on 12/20/2020 with: #Persistent Fever since 01/16, new sepsis secondary to Acinetobacter/Citrobacter bacteremia: Source could be urine/line/abdominal wound. UA with significant pyuria. Lawrence and HD cath were removed. Low-grade fever overnight #Initial septic shock: Resolved. Secondary to intra-abdominal source, peritonitis. Patient with necrotic bowel secondary to incarcerated ventral hernia. Status post exploratory laparotomy, extensive adhesiolysis, small bowel resection and peritoneal lavage along with ABThera VAC placement on 12/20/2020, replacement 12/29/2020. Off pressors. Last surgery abdomen closure with mesh 01/02/2021. Repeat CT 01/09/21 with large [id number] organized but bland appearing reactive fluid collection in anterior abdomen - seroma v/s hematoma. Surgery following. CRP 4. #JONI: Renally dose antibiotics. Was requiring hemodialysis, now off, creatinine better, nephrology following. JONI resolving. #Morbid obesity #Mucor in tracheal aspirate is likely colonization. No treatment needed currently. Recs: -Patient to be transferred to [facility] -Continue IV cefepime 2 g every 12 hours D6, fever improving the last 36 hours will monitor -Follow-up procal -If patient remains persistently febrile, consider CT abdomen and pelvis to eval collection -Continue wound care for lower abdominal wound Nataliya Triplett MD [facility] ([facility]) Office [phone] Subjective Date of service: 01/23/21 Principal diagnosis: SBO and necrosis of large part of small intestine Interval history: Remains intubated, feels better once restraints to be taken however is pulling out NG tube. Noted low-grade fever overnight. Objective - Exam Narrative Exam: General appearance: Alert, intubated Eyes: anicteric sclerae, moist conjunctivae; no lid-lag; PERRLA HENT: Normocephalic, Atraumatic; normal external ears, nares open, oropharynx NG tube in place Neck: supple, tracheal midline, no JVD Lungs: Bilateral coarse breath sounds CV: RRR Abdomen: Soft, midline surgical wound, drain in place, scrotal edema and skin tears Extremities: Bilateral leg edema Skin: Large scrotum, Lawrence in place Psych: Alert slightly anxious Neuro: Alert, follows commands Rectal tube in place - Constitutional Vitals: Vital Signs Temp Pulse Resp BP Pulse Ox 100 F H 98 H 21 122/69 99 01/23/21 08:00 01/23/21 08:31 01/23/21 08:31 01/23/21 08:31 01/23/21 08:31 Temperature -Last 24 Hours Temperature 100 F Temperature 98.9 F Temperature 97.9 F Temperature 100.9 F - Labs CBC & Chem 7: 01/22/21 10:08 01/22/21 10:08 Labs: Abnormal lab results 01/22/21 01/22/21 01/22/21 Range/Units 10:08 10:08 11:57 RBC 3.11 L (3.65-5.03) M/mm3 Hgb 8.9 L (11.8-15.2) gm/dl Hct 27.5 L (35.5-45.6) % RDW 16.9 H (13.2-15.2) % Sodium 153 H (137-145) mmol/L Chloride 119.5 H (98-107) mmol/L BUN 42 H (9-20) mg/dL Glucose 111 H (75-100) mg/dL POC Glucose 112 H (70-105) mg/dL Calcium 7.8 L (8.4-10.2) mg/dL C-Reactive Protein (0.00-1.30) mg/dL 01/22/21 01/22/21 01/23/21 Range/Units 17:05 23:35 05:45 RBC (3.65-5.03) M/mm3 Hgb (11.8-15.2) gm/dl Hct (35.5-45.6) % RDW (13.2-15.2) % Sodium (137-145) mmol/L Chloride (98-107) mmol/L BUN (9-20) mg/dL Glucose (75-100) mg/dL POC Glucose 107 H 109 H (70-105) mg/dL Calcium (8.4-10.2) mg/dL C-Reactive Protein 4.00 H (0.00-1.30) mg/dL
[2021-01-23] MEDS: FENTANYL 50 MCG/HR TD SCH (10:05)
[2021-01-23] MEDS: CEFEPIME/NS 2 GM/100 ML 2 GM/100 ML BAG IV SCH ×2 (10:05→21:08)
[2021-01-23] MEDS: QUEtiapine 25 MG TAB PO SCH ×2 (10:05→21:07)
[2021-01-23] MEDS: FAMOTIDINE 20 MG TAB PO SCH ×2 (10:07→21:07)
--- NOTE | 2021-01-23 10:17 | Progress Note ---
Assessment and Plan Impression * Nonoliguric acute kidney injury secondary to ATN --HD initiated December 30 * Incarcerated hernia with ischemic bowel. Status post bowel resection * Hypernatremia, * Fluid overload * Sepsis * Respiratory failure, intubated * Hyperkalemia * Metabolic Acidosis, Gap * Hypoalbuminemia * Anemia * Bacteremia Recommendations * Patient with good UOP. Polyuria seems to be improving . * Renal function has improved significantly. Patient remains off dialysis . * Do not anticipate need for additional dialysis treatment. Patient is bacteremic. His Vas-Cath has been removed * Would recommend maintaining Lawrence catheter for now * Transfuse for Hb < 7 * TPN per nutrition/primary * Pressors prn to maintain MAP greater than 65 * Avoid nephrotoxins * Monitor fluid status and electrolytes * Replace potassium * Patient is still hypernatremic. Continue IV dextrose as well as free water through the feeding tube * Today's chemistries pending * Plans for transfer to LTAC noted Subjective Date of service: 01/23/21 Principal diagnosis: SBO and necrosis of large part of small intestine Interval history: Patient is currently on the ventilator. On 30% FiO2. Awake. Objective - Vital Signs Vital signs: Vital Signs - 12hr 01/22/21 01/22/21 01/22/21 22:31 22:37 22:45 Temperature Pulse Rate 91 H 90 86 Respiratory 11 L 33 H 24 Rate Blood Pressure 107/50 107/50 107/50 O2 Sat by Pulse 100 100 100 Oximetry 01/22/21 01/22/21 01/22/21 22:53 23:00 23:15 Temperature Pulse Rate 88 88 88 Respiratory 25 H 20 17 Rate Blood Pressure 107/50 113/56 113/56 O2 Sat by Pulse 100 99 98 Oximetry 01/22/21 01/22/21 01/22/21 23:31 23:42 23:45 Temperature 97.9 F Pulse Rate 82 85 Respiratory 24 26 H Rate Blood Pressure 113/56 113/56 O2 Sat by Pulse 100 97 Oximetry 01/23/21 01/23/21 01/23/21 00:00 00:15 00:31 Temperature Pulse Rate 86 84 81 Respiratory 24 24 25 H Rate Blood Pressure 119/65 119/65 119/65 O2 Sat by Pulse 98 99 98 Oximetry 01/23/21 01/23/21 01/23/21 00:45 01:00 01:15 Temperature Pulse Rate 85 86 84 Respiratory 18 23 25 H Rate Blood Pressure 119/65 124/68 124/68 O2 Sat by Pulse 100 98 100 Oximetry 01/23/21 01/23/21 01/23/21 01:31 01:45 02:01 Temperature Pulse Rate 81 82 85 Respiratory 25 H 24 13 Rate Blood Pressure 124/68 124/68 113/61 O2 Sat by Pulse 100 100 100 Oximetry 01/23/21 01/23/21 01/23/21 02:15 02:31 02:45 Temperature Pulse Rate 90 89 117 H Respiratory 15 14 38 H Rate Blood Pressure 113/61 124/68 124/68 O2 Sat by Pulse 100 92 92 Oximetry 01/23/21 01/23/21 01/23/21 03:00 03:15 03:31 Temperature Pulse Rate 98 H 88 94 H Respiratory 18 24 12 Rate Blood Pressure 118/56 118/56 118/56 O2 Sat by Pulse 96 99 Oximetry 01/23/21 01/23/21 01/23/21 03:45 04:00 04:12 Temperature 98.9 F Pulse Rate 91 H 87 85 Respiratory 17 16 Rate Blood Pressure 118/56 128/74 128/74 O2 Sat by Pulse 100 99 97 Oximetry 01/23/21 01/23/21 01/23/21 04:15 04:31 04:45 Temperature Pulse Rate 84 89 85 Respiratory 24 25 H 23 Rate Blood Pressure 128/74 128/74 128/74 O2 Sat by Pulse 98 100 99 Oximetry 01/23/21 01/23/21 01/23/21 05:00 05:15 05:31 Temperature Pulse Rate 88 89 87 Respiratory 20 25 H 25 H Rate Blood Pressure 114/64 114/64 114/64 O2 Sat by Pulse 100 98 100 Oximetry 01/23/21 01/23/21 01/23/21 05:45 06:00 06:15 Temperature Pulse Rate 89 86 89 Respiratory 27 H 24 24 Rate Blood Pressure 128/74 115/69 115/69 O2 Sat by Pulse 99 100 100 Oximetry 01/23/21 01/23/21 01/23/21 06:31 06:45 07:00 Temperature Pulse Rate 87 89 88 Respiratory 26 H 22 25 H Rate Blood Pressure 115/69 115/69 109/61 O2 Sat by Pulse 100 100 100 Oximetry 01/23/21 01/23/21 01/23/21 07:15 07:31 07:45 Temperature Pulse Rate 92 H 95 H Respiratory 25 H 26 H 19 Rate Blood Pressure 109/61 109/61 109/61 O2 Sat by Pulse 100 100 100 Oximetry 01/23/21 01/23/21 01/23/21 08:00 08:01 08:15 Temperature 100 F H Pulse Rate 88 129 H 97 H Respiratory 25 H 26 H Rate Blood Pressure 122/69 122/69 O2 Sat by Pulse 100 100 Oximetry 01/23/21 01/23/21 08:31 09:54 Temperature Pulse Rate 98 H 89 Respiratory 21 Rate Blood Pressure 122/69 126/78 O2 Sat by Pulse 99 100 Oximetry - General Appearance General appearance: well-developed, well-nourished, appears stated age, intubated EENT: PERRL, mucous membranes moist Neck: no JVD, no thyromegaly, no carotid bruit, supple Respiratory: Present: Clear to Ascultation Cardiology: regular, normal heart rate Gastrointestinal: other (Midline dressing in place. Abdominal binder noted.) Integumentary: other (No edema) - Lab 01/22/21 10:08 01/22/21 10:08 Most recent lab results ABG pH 7.512 (7.320-7.450) H 01/19/21 05:00 ABG pCO2 37.9 mm Hg 01/05/21 03:50 ABG pO2 136.8 mm Hg (80.0-90.0) H 01/05/21 03:50 ABG HCO3 22.4 mmol/L (20.0-26.0) 01/05/21 03:50 ABG O2 Saturation 84.4 (0-100) 01/19/21 05:00 Calcium 7.8 mg/dL (8.4-10.2) L 01/22/21 10:08 Phosphorus 4.40 mg/dL (2.5-4.5) 01/17/21 04:30 Magnesium 1.90 mg/dL (1.7-2.3) 01/20/21 07:25 Urine Creatinine 17.6 mg/dL (0.1-20.0) 01/19/21 Unknown Urine Sodium 87 mmol/L 01/19/21 Unknown Medications & Allergies - Medications Allergies/Adverse Reactions: Allergies Iodinated Contrast Media Adverse Reaction (Verified 09/04/18 14:20) Unknown Home Medications: Home Medications Medication Instructions Recorded Confirmed Last Taken Type AtorvaSTATin [Lipitor] 80 mg PO QHS tablet 05/08/19 01/04/21 03/28/20 Rx Albuterol Sulfate [Proventil Hfa] 13.4 gm IH Q6H #1 hfa.aer.ad 04/01/20 01/04/21 Unknown Rx Dextrose 50% in Water [D50W (25GM) 50 ml IV Q30MIN PRN syringe 01/20/21 Unknown Rx Syringe] Famotidine [Pepcid] 20 mg PO BID tablet 01/20/21 Unknown Rx Free Water 300 ml PO Q4HR oral.liqd 01/20/21 Unknown Rx HYDROmorphone [Dilaudid] 0.25 mg IV Q4H PRN syringe 01/20/21 Unknown Rx HYDROmorphone [Dilaudid] 0.5 mg IV Q4H PRN syringe 01/20/21 Unknown Rx HYDROmorphone [Dilaudid] 1 mg IV Q4H syringe 01/20/21 Unknown Rx Insulin Regular, Human [HumuLIN R] 0 units SUB-Q Q6H units 01/20/21 Unknown Rx Lipase/Protease/Amylase [Pancreaze 1 each FEEDTUBE PRN PRN capsule 01/20/[address] 10,500 Unit] Min Oil/Petrolatum [Artificial 1 applic OU Q4HR PRN tube 01/20/21 Unknown Rx Tears Ophth Oint] Petrolatum,White [Vaseline Lip 1 applic TP Q2HR PRN tube 01/20/21 Unknown Rx Therapy] Potassium Chloride 40 meq FEEDTUBE BID packet 01/20/21 Unknown Rx QUEtiapine [SEROquel] 50 mg PO BID tablet 01/20/21 Unknown Rx Simple Syrup 15 ml FEEDTUBE PRN PRN oral.liqd 01/20/21 Unknown Rx Sodium Bicarbonate 325 mg FEEDTUBE PRN PRN tablet 01/20/21 Unknown Rx Sodium Chloride 0.9% Int [Sodium 10 ml IV BID syringe 01/20/21 Unknown Rx Chloride Flush Syringe 10 ml] Sodium Chloride 0.9% Int [Sodium 10 ml IV PRN PRN syringe 01/20/21 Unknown Rx Chloride Flush Syringe 10 ml] dexmedeTOMIDine [Dexmedetomidine] 1,000 mcg IV TITRATE vial 01/20/21 Unknown R x [id number] 50 MCG/HR Patch 72HR 1 applic TD Q3D ea 01/20/21 Unknown Rx [Duragesic 50mcg] Active Medications: Generic Name Dose Route Start Last Admin Trade Name Freq PRN Reason Stop Dose Admin Acetaminophen 650 mg 01/16/21 03:57 01/21/21 16:25 Acetaminophen 325 Mg/10.15 Ml Oral Liqd Unit Dose FEEDTUBE 650 mg Q6H PRN Administration Non Cardiac Pain or Temp>100.5 Lipase/Protease/Amylase 1 each 01/07/21 08:44 Lipase 10,500/Protease 25,000/Amylase 43,750 (Units) Dr Maharaj FEEDTUBE PRN PRN For Clogged Feeding Tube Dextrose 50 ml 12/24/20 10:49 Dextrose 50% In Water (25gm) 50 Ml Syringe IV Q30MIN PRN Hypoglycemia Protocol Famotidine 20 mg 01/17/21 10:00 01/23/21 10:07 Famotidine 20 Mg Tab PO 20 mg BID ASCENCION Administration Fentanyl 1 applic 01/11/21 14:00 01/23/21 10:05 Fentanyl 50 Mcg/Hr Patch 72hr TD 1 applic Q3D ASCENCION Administration Heparin Sodium (Porcine) 5,000 unit 01/06/21 14:00 01/23/21 08:11 Heparin 5,000 Unit/1 Ml Vial SUB-Q Not Given Q8HR ASCENCION Hydromorphone HCl 0.5 mg 01/12/21 10:10 01/17/21 15:00 Hydromorphone 1 Mg/1 Ml Inj IV 0.5 mg Q4H PRN Administration Pain , Severe (7-10) Hydromorphone HCl 0.25 mg 01/12/21 10:11 01/15/21 15:40 Hydromorphone 1 Mg/1 Ml Inj IV 0.25 mg Q4H PRN Administration Pain, Moderate (4-6) Hydromorphone HCl 1 mg 01/19/21 11:00 01/23/21 07:29 Hydromorphone 1 Mg/1 Ml Inj IV 1 mg Q4H ASCENCION Administration Hydrophilic Ointment 1 applic 12/20/20 21:58 Lip Therapy Vaseline TP Q2HR PRN Dry Lips Dexmedetomidine HCl 1,000 mcg/ 260 mls @ 7.322 mls/hr 01/15/21 01:00 01/22/21 23:40 Sodium Chloride IV 1.2 mcg/kg/hr TITRATE ASCENCION 43.93 mls/hr Administration Protocol 0.2 MCG/KG/HR Cefepime HCl 2 gm in 100 mls @ 200 mls/hr 01/20/21 12:00 01/23/21 10:05 Cefepime/Ns 2 Gm/100 Ml IV 01/26/21 22:29 200 mls/hr Q12HR ASCENCION Administration Protocol Dextrose 1,000 mls @ 75 mls/hr 01/21/21 12:00 01/22/21 16:40 D5w IV 75 mls/hr DIRECT ASCENCION Administration Insulin Human Regular 0 units 12/28/20 00:00 01/23/21 08:11 Insulin Regular, Human 100 Units/1 Ml SUB-Q Not Given Q6H ASCENCION Protocol Metoprolol Tartrate 5 mg 01/14/21 13:37 01/15/21 12:42 Metoprolol Tartrate 5 Mg/5 Ml Inj IV 5 mg Q6H PRN Administration SBP >/=160 Multi-Ingred Cream/Lotion/Oil/Oint 1 applic 12/20/20 21:58 01/03/21 01:13 Mineral Oil/Petrolatum, White Ophth Oint 3.5 Gm OU 1 applic Q4HR PRN Administration Dry Eye(s) Quetiapine Fumarate 50 mg 01/19/21 12:00 01/23/21 10:05 Quetiapine 25 Mg Tab PO 50 mg BID ASCENCION Administration Simple Syrup 15 ml 01/07/21 08:44 Simple Syrup 15 Ml FEEDTUBE PRN PRN Hypoglycemia Sodium Bicarbonate 325 mg 01/07/21 08:44 Sodium Bicarbonate 325 Mg Tab FEEDTUBE PRN PRN For Clogged Feeding Tube Sodium Chloride 10 ml 12/20/20 22:00 01/23/21 10:06 Sodium Chloride 0.9% 10 Ml Flush Syringe IV 10 ml BID ASCENCION Administration Sodium Chloride 10 ml 12/20/20 16:42 01/17/21 06:01 Sodium Chloride 0.9% 10 Ml Flush Syringe IV 10 ml PRN PRN Administration LINE FLUSH
[2021-01-23 10:27] LABS: BUN/Creatinine Ratio 37; Blood Urea Nitrogen 41 mg/dL (9-20); Calcium 8.6 mg/dL (8.4-10.2); Hemolysis Index 4
[2021-01-23] MEDS: DEXTROSE 5% IN WATER 1,000 ML IV SCH (11:50)
--- NOTE | 2021-01-23 16:37 | Progress Note ---
Assessment and Plan Assessment and plan: This is a 60-year-old male with obesity, hypertension, nicotine dependence, PVD s/p stent placement on dual antiplatelet therapy, hyperlipidemia, OA, GERD, ventral hernia and small bowel obstruction who was admitted with small bowel obstruction and peritonitis Neuro Postoperative pain; hx OA; hx acute/chronic abd pain; hx narcotic use at home due to a/c pain; hx med non adherence -IV PRN pain meds -avoid oversedation as they will inhibit his SBT -continuing to wean propofol and dex but pt does get agitated and pulls at lines and tubes - PO seroquel BID today- monitor response; hope is this will facilitate d/c of propofol -PRN pain medications -has been getting dilaudid scheduled every 4 hours for pain; for post op pain and high opiate use/tolerance; Dr Cherry would like to continue -normalize day night to limit delirium -remains in soft wrist restraints and mittens -nodding appropriately -following commands -moving all extremities -not that due to pts chronic pain he was on opiates at home (per family he took more than was prescribed); per his brother he would not fill his non pain medications so that he could get his opiates; hopefully now that his hernias have been repaired this will not be an ongoing issue the immediate post op recovery period. -Pt has a son (disclosed late in admission), pt lives with his mother; pt has a brother that is has been involved in care decisions. The brother states their mother is of age and not well herself so she has deferred care decisions to him Discharge planning per correctional casework specialist impending LTAC placement CV on no pressors SR Hypertension -resume home meds for bp when appropriate -metop PRN hx CAD with stent -resume home asa and plavix when appropriate; was also on pletal hx Hyperlipidemia -resume home statin when appropriate Resp Post op hypoxic respiratory failure -intubated 12/20 -remains intubated -consider trach -daily sedation holiday -vent weaning and conditioning to PS as tolerated; daily per RT -ETT repositioned 24 cm at teeth is 1.5 cm above henrietta; pt has a lot of secretions today- white and thin in nature Nicotine dependence -Smoking cessation counseling when appropriate GI Small bowel obstruction with peritonitis, incarcerated Ventral hernia s/p repair -12/20 CT abdomen/pelvis showed high-grade small bowel obstruction related to severe complex ventral abdominal wall hernias, progressed in appearance from prior exam from 09/12/2020 without evidence of pneumonitis or pneumoperitoneum, patchy bibasilar airspace disease concern for atypical infectious process/pneumonitis -12/20 s/p ex lap, extensive lysis of adhesions, small bowel resection (removal of 70 cm necrotic small bowel segment), peritoneal lavage and ABThera abdominal wound VAC placement -12/23 s/p abdominal exploration, small bowel resection, peritoneal lavage, ABThera wound VAC placement -12/26 s/p ex lap, small bowel resection, peritoneal lavage, ABThera wound VAC placement -12/29 s/p ex lap, small bowel resection, small bowel anastomosis and ABThera wound VAC placement -01/01 s/p myocutaneous flap creation, abdominal wall component separation and placement of phasix mesh with surgery yesterday where his abdomen was closed and 2 LAURA drains were placed on either side of his midline between fascia and subcu tissue. -12/30 initiated on HD by nephro -01/09 CT abdomen/pelvis with contrast shows large organized virtually bland appearing fluid collection along the anterior abdomen measuring up to 29 cm in the craniocaudal dimension and 2.6 cm in transverse dimension which may reflect postoperative seroma or hematoma, no associated gas to suggest superimposed infection, no contrast is seen within the collection to suggest bowel perf oration -01/09 CT chest with contrast shows CHF with small left and trace right pleural effusions and diffuse groundglass opacities in airspace consolidation consistent with pulmonary edema (superimposed multifocal pneumonia is not excluded), diffuse anasarca likely related to third spacing of fluid. Midline abdominal incision -Ulceration to midline abdominal incision with purulent drainage -01/17 wound culture sent with primary growth of gram-negative rods -WOCN consulted, appreciate recommendations -Wound care per nursing -Dr Tena aware of wound status-continue wound care per WOCN; nav should remain in for now; LAURA drains to remain until pt extubated Protein calorie malnutrition -S/p TPN- discontinued as he is tolerating TF -dobhoff replaced this AM- KUB ordered -Tube feedings per nutrition recs changed TF due to diarrhea fiber hx GERD -continue PPI diarrhea -appears to be TF diarrhea -fiber to continue -BMS in place- remove steffen Acute Kidney Injury, due to ATN improving; hypoMg; hypoK; hyperna -12/23 fracture excretion of sodium calculated at 0.16 secondary prerenal state -nephrology following -HD d/c given renal recovery -Strict intake and output -net neg 2L over 24 hours; polyuria continues -Daily weights -Trend Cr -polyuria Hypernatremia -D5W -Trend sodium -FWF Hypoalbuminemia -ntr consulted Heme Anemia -Transfuse for hemoglobin less than 7 -01/09 stool occult positive -GI aware -Trend Hgb -no bleeding on exam (stools taylor in color) VTE prophylaxis -cont SCD and ASCENCION ID Septic Shock on admit; peritonitis; leukocytosis: bacteremia/wound/UTI -ID following -Antibiotic therapy per ID -changed to dawna 01-18 -follow cultures -urine culture sent -yg dc 01-18 -haley changed 01-18 -12/20 tracheal aspirate with mucus species which does not to be treated per ID -12/20 blood cultures x2 with no growth, urine culture with usual skin giorgio -01/16 blood cultures x2 with gram-negative jesus, abdominal wound culture with 2 species of gram-negative rods -COVID-19 neg on admit -trend temp and WBC curve -wound care per WOCN and nursing Endo hx Obesity Hyperglycemia -SSI PRN -avoid hypoglycemia PLAN LTAC ON Saturday, 01/24 GI/DVT prophylaxis: PPI, SCDs and SQH Lines: PICC placed 01/05, Haley catheter; BMS The high probability of a clinically significant, sudden or life threatening deterioration of the [multi] system(s) required my full and direct attention, intervention and personal management. The aggregate critical care time was [35] minutes. This time is in addition to time spent performing reported procedures but includes the following: [x] Data Review and interpretation [x] Patient assessment and monitoring of vital signs [x] Documentation [x] Medication orders and management Disposition: Patient should be transported to LTAC tomorrow on 01/24/2021. History Interval history: This is a 60-year-old male with obesity, hypertension, nicotine dependence, PVD s/p stent placement on dual antiplatelet therapy, hyperlipidemia, OA, GERD, ventral hernia with SBO who presents to the emergency department on 12/20 with severe, diffuse, worsened with movement, slightly relieved with rest abdominal pain rated at 10/10 with decreased oral intake, nausea and multiple episodes of vomiting. Patient underwent a CT of his abdomen/pelvis and was found to have evidence of small bowel obstruction as well as clinical findings consistent with acute peritonitis. Patient was admitted to the hospital service with acute peritonitis and incarcerated ventral hernia with consults to [facility] and surgery. 12/21: Patient is status post ex lap, extensive lysis of adhesions, small bowel resection, peritoneal lavage and ABThera abdominal wound VAC placement by Dr. Tena and Dr. Brumfield on 12/20 with removal of a 70 cm segment of necrotic small bowel. Patient was intubated and sedated on propofol 4 at the time of my examination on Assist-control, rate of 24, PEEP of 6, tidal volume of 550 and FiO2 35%. Patient needed to be deeply sedated and there was a became hypotensive. Patient was started on patient for support with Levophed and received bolus of IVF. 12/22: Patient was febrile to 103 and vancomycin and Diflucan were added by [facility] and infectious disease was consulted and they increased Zosyn and stop vancomycin. Patient was given additional 1 L bolus today for CVP goal of 10-12. At the time of examination patient was on Levophed, propofol and fentanyl CMV tidal volume 500, rate of 24, PEEP of 6 and FiO2 65%. Plan for OR tomorrow 12/23: Patient Cr/BUN noted to be increased and nephrology was consulted. ID decreased the zosyn dose d/r renal function. Urine studies ordered. [place] placed today. LR boluses per [facility], TPN to be started. Fractional excretion of sodium calculated at 0.16 indicating prerenal state 12/24: Patient is status post abdominal exploration, small bowel resection of 4 to 5 cm segment of dusky small bowel, peritoneal lavage and ABThera wound VAC placement on 12/23 with surgery, leukocytosis and renal function is improving, worsening hypernatremia and hyperchloremia. Patient will be started on TPN today. We will place on SSI/Accu-Cheks every every 6 hours. Patient noted to be nearly maxed on Levophed and vasopressin was ordered. Remains sedated and on MV 12/25: Leukocytosis continues to improve, given Ca Gluconate today, Hypernatremia, Cr and hyperchorlemia slightly worsened today. Patient is sedated with propofol and fentanyl on CMV TV 500, Rate 24, Peep 6, FiO2 50%. He remains on levophed. Possible OR Saturday. 12/26 Patient presented with small bowel obstruction, is status post ex lap, extensive lysis of adhesions, small bowel resection, peritoneal lavage and ABThera abdominal wound VAC placement by Dr. Tena and Dr. Brumfield on 12/20 with removal of a 70 cm segment of necrotic small bowel. Was taken back to OR on 12/23 s/p Abdominal exploration, Small bowel resection, Peritoneal lavage, ABThera wound VAC placement. he is still having fever. Poss going to OR again today. Sepsis managed by ID. He is on Diflucan, Zosyn. He is on Levophed. 6/ s/p ex lap, extensive lysis of adhesions, small bowel resection (removal of 70 cm necrotic small bowel segment), peritoneal lavage and ABThera abdominal wound VAC placement. Still having fever Still on vent 12/28: Patient is orally intubated with AC mode ventilation rate 24, tidal volume 500, FiO2 75% and PEEP of 6. POD#8 s/p ex lap and small bowel resection for necrotic bowel secondary to incarcerated ventral hernia left with open abdomen. POD#5 s/p abdominal exploration with segmental small bowel resection. abthera placement POD#2 s/p abdominal exploration, small bowel resection for ischemia, abthera placement -CCM, surgery, infectious disease, nephrology consulted, appreciate recommendations -IV abx per ID: Zosyn, fluconazole -NGT to LIWS -NPO for now, TPN -SSI, Accucheck q6 -Vasopressor support with levophed -On mechanical ventilation, wean as tolerated, VAP bundle -Sedated with propofol and analgesia with fentanyl drip -Trend CBC, BMP, Mg, Phos -GI/DVT prophylaxis: PPI, SCDs to bilateral lower extremities while in bed, avoid chemical anticoagulation to cleared by surgery 12/29: Patient underwent abdominal exploration, small bowel resection, small bowel anastomosis and ABThera wound VAC placement this a.m. Patient remains on AC mode ventilation with a rate of 24, tidal volume 500, FiO2 65% and PEEP of 6. Continue antibiotics per ID recommendations. Continue vasopressor support as needed. Continue TPN for nutritional support. 12/30: Patient currently with AC mode ventilation rate of 24, tidal volume 500, FiO2 60% and PEEP of 6. Patient underwent further surgery yesterday with another abdominal exploration, small bowel resection, small bowel anastomosis and replacement of the ABThera wound VAC. Patient continues to require vasopressor support with vasopressin and Levophed. Continue TPN for nutrition. Continue propofol and fentanyl for sedation. Continue Zosyn per ID recommendations. INITIATED ON HD PER NEPHRO 12: Patient currently with AC mode ventilation rate of 24, tidal volume 500, FiO2 50% and PEEP of 6. POD#12 s/p ex lap and small bowel resection for necrotic bowel secondary to incarcerated ventral hernia left with open abdomen. POD#9 s/p abdominal exploration with segmental small bowel resection. abthera placement POD#3 s/p abdominal exploration, small bowel resection for ischemia, abthera placement POD#2 s/p abdominal exploration with small bowel anastamosis and abthera vac placement Continue hemodialysis per nephrology recommendations. Surgery plans for abdominal washout and bowel examination on Saturday. If anas tamosis looks viable and no other issues, surgery plans to close his abdomen. 01/01: Continue current ventilator settings per pulmonary monitor ABG. Continue antibiotics per ID recommendations. Surgery plans for abdominal washout and bowel examination. If anastamosis looks viable and no other issues, surgery plans to close his abdomen. Wean pressors to maintain MAP > 65. Continue TPN for nutritional support. Hemodialysis per nephrology recommendations. Prognosis remains guarded. 01/02: At the time my examination patient was only on vasopressin for vasopressor support, sedated on 30 mcg of propofol and 4 mcg of fentanyl. Patient was on CMV tidal volume 500, rate of 12, PEEP of 10 and 50% FiO2. Patient remains on TPN and with NG tube to low intermittent suction. Patient underwent a m yocutaneous flap creation, abdominal wall component separation and placement of phasix mesh with surgery yesterday where his abdomen was closed and 2 LAURA drains were placed on either side of his midline between fascia and subcu tissue. Per infectious his antibiotics will continue until 5 days postop from a final surgery. Patient has increasing leukocytosis which are likely reactive to surgery and patient will have hemodialysis today for clearance and volume removal. Patient sedation and mechanical ventilation will be weaned for extubation. 01/03: Patient H/H is 6.2/18.5 and he is being transfused 2 units PRBC with hemodialysis today. Patient has slight hypokalemia but TPN has been adjusted to address potassium. Patient continues to have hyponatremia, hypochloremia and hyperphosphatemia closely improved. The time my examination patient sedated on fentanyl and propofol and LAURA drainage noted to be more serosanguineous. Patient was on assist control with TV 500, PEEP of 8, rate of 28 and FiO2 40%. Patient remains off vasopressor support. No acute overnight events reported 01/04: Patient sedated on propofol and fentanyl. RN reported bowel movement overnight. Precedex drip started. NG tube clamped and may start trickle tube feedings later if patient does not have high residuals. [facility] continues to wean ventilation as tolerated. On my exam patient is on CMV tidal volume 500 rate of 28, PEEP of 8 and 40% FiO2. Patient is having periods of agitation and FiO2 had to be increased for hypoxia. Mucor species in tracheal aspirate but ID believes this is colonization. 01/05: Patient is severely agitated and received multiple IV push fentanyl. Patient was ultimately started on propofol. He received hemodialysis today. Patient had approximately 400 mL of NG output overnight. NG tube continues to be on suction. Leukocytosis worsened today. 01/06: Patient is agitated despite fentanyl pushes and Dilaudid was ordered, patient noted to be anemic with a hemoglobin of 6.5 and will be transfused 1 unit PRBC today. Nephrology does not plan to dialyze him today and to keep him on Saturday, , Saturday schedule. No acute events reported overnight. Patient NG tube residuals continue to decrease and surgery has cleared for trickle tube feeds which has been communicated to dietitian. 01/07: This this morning H/H resulted at 6.7/20.1 after 1 unit PRBC 6.7/21.8. Mukesh puckett's ABG today shows respiratory acidosis and vent settings have been changed by [facility]. Patient should receive hemodialysis today as he is on Saturday schedule. Overnight RN reported 700 mL of NG tube output over 12 hours. We will hold off on trickle feeds and continue TPN. At the time of my examination patient was sedated on propofol, fentanyl, Precedex and on CMV tidal volume 550, rate of 10, PEEP of 8 and 35% FiO2. We will order coags and stool guaiac to further investigate anemia. -01/09 stool pos for guiac; CT Chest/abd/pelvis -01/10: Patient this morning with elevated BP, likely secondary to pain vs ?Hx of Htn, Hydralazine PRN ordered and added to the patient, will monitor. Continue pain control. Wound care management and vent weaning when ok with surgery and I ntensivist 01/12: Continue supportive care including pain control. Monitor for bowel movement. Continue off antibiotics per ID monitor. Brigadier following for HD. 01/13/21 patient is seen and examined. Patient is still on vent. Wean to extubate as per critical care. Patient is off antibiotic as per infectious disease. Status post dialysis catheter placed in the right IJ. HD as per nep hrology. Continue current management. Recheck CBC BMP in the morning. 01/14/21 patient seen and examined. Patient is still on vent. Patient is agitated. We will try to wean the sedation. We will start metoprolol 5 mg p.o. every 8 hours as needed for blood pressure. Patient is off antibiotic as per infectious disease. Continue hemodialysis as per nephrology. Continue current management. Critical care follow-up. Prognosis is guarded. Recheck CBC BMP in the morning 01/15: Remains with guarded prognosis, no clear evidence of renal recovery, still on the vent. Monitor H/H and repeat CT A/P if downward trend. Replace K. 01/16: Patient is hypokalemic today at 2.9, patient's urinalysis reveals UTI and patient is already on cefepime, vancomycin and fluconazole per ID. Patient's urine output noted to be 1843-7184 mL over the past couple days. Nephrology requested to hold off removal of Haley catheter as the patient seems to be in the diuretic phase of ATN and will withhold dialysis for now and evaluate. At the time my examination patient is sedated on propofol and Precedex on CMV tidal line 500, rate of 24, PEEP of 6 and 30% FiO2. Patient was febrile last night with a T-max of 102.7. Patient was cultured overnight. Wound care consult for abd wound with purulent drainage, culture sent. 01/17: Patient is again hypokalemic and hypomagnesemic which was repleted with K-Phos and KCl overnight. Patient has hypernatremia. Nephrology has started the patient on hypotonic IVF with potassium. Right IJ Vas-Cath ordered to be removed. Patient's abdominal culture and blood cultures from 01/16 are growing gram-negative rods. The time my examination patient was on propofol and dexamethasone on assist control. T-max 102.7. 01/18 Discharge planning for LTAC; weaning propofol 01/19 no acute events overnight 01/20: LTACH transfer today, wean propofol 01/21: Patient discharged to LTAC has been delayed (see note). Patient was febrile overnight however we will maintain his current regimen. Patient has hypernatremia and has been started on D5W by nephrology. Possible transfer to LTAC Saturday. 01/22: No overnight events, patient to go to LTAC, remains hypernatremic, continue fluids. 01/23: No overnight events. Hypernatremia is resolving. Patient is trying to self extubate himself, this is why he continues to be in restraints. Hospitalist Physical - Physical exam Narrative exam: General appearance: Obese, no acute distress, well-nourished EENT: PERRL, EOM intact, hearing intact Neck: Present: supple, normal ROM Respiratory: Patient intubated, bilateral CTA, negative: rales, rhonchi, wheezing Cardiovascular: Regular rate/rhythm, Normal S1 & S2. No gallop, rub Extremities: no ischemia, No edema, normal temperature, normal color, restraints Abdominal: Abdominal LAURA drain with serous drainage. Soft, no tenderness, non- distended : Scrotal edema with erythema, Haley catheter Integumentary: Present: clear, warm, dry no wounds, no erythema noted Neurologic: Patient is alert, intubated, responsive to verbal cues - Constitutional Vitals: Temp Pulse Resp BP Pulse Ox 98.8 F 81 14 98/61 100 01/23/21 16:34 01/23/21 16:00 01/23/21 09:15 01/23/21 16:00 01/23/21 16:00 General appearance: Present: obese, other (Agitated on vent) HEART Score - HEART Score EKG: Normal Age: < 45 Risk factors: No known risk factors Troponin: Troponin T < 0.010 ng/mL (0.00-0.029) 12/20/20 13:58 Troponin: < normal limit - Critical Actions Critical Actions: 0-3 pts:0.9-1.7%risk of adverse cardiac event.Candidate for discharge Results - Labs CBC & Chem 7: 01/22/21 10:08 01/23/21 09:29 Labs: Laboratory Last Values WBC 9.6 K/mm3 (4.5-11.0) 01/22/21 10:08 RBC 3.11 M/mm3 (3.65-5.03) L 01/22/21 10:08 Hgb 8.9 gm/dl (11.8-15.2) L 01/22/21 10:08 Hct 27.5 % (35.5-45.6) L 01/22/21 10:08 MCV 88 fl (84-94) 01/22/21 10:08 MCH 29 pg (28-32) 01/22/21 10:08 MCHC 32 % (32-34) 01/22/21 10:08 RDW 16.9 % (13.2-15.2) H 01/22/21 10:08 Plt Count 310 K/mm3 (140-440) 01/22/21 10:08 Lymph % (Auto) 6.5 % (13.4-35.0) L 01/14/21 05:00 [place] % (Auto) 2.5 % (0.0-7.3) 01/14/21 05:00 Eos % (Auto) 7.7 % (0.0-4.3) H 01/14/21 05:00 Baso % (Auto) 0.6 % (0.0-1.8) 01/14/21 05:00 Lymph # (Auto) 0.8 K/mm3 (1.2-5.4) L 01/14/21 05:00 [place] # (Auto) 0.3 K/mm3 (0.0-0.8) 01/14/21 05:00 Eos # (Auto) 1.0 K/mm3 (0.0-0.4) H 01/14/21 05:00 Baso # (Auto) 0.1 K/mm3 (0.0-0.1) 01/14/21 05:00 Add Manual Diff Complete 01/10/21 04:01 Total Counted 100 01/10/21 04:01 Seg Neutrophils % 82.7 % (40.0-70.0) H 01/14/21 05:00 Seg Neuts % (Manual) 95.0 % (40.0-70.0) H 01/10/21 04:01 Band Neutrophils % 2.0 % 01/10/21 04:01 Lymphocytes % (Manual) 3.0 % (13.4-35.0) L 01/10/21 04:01 Monocytes % (Manual) 1.0 % (0.0-7.3) 01/09/21 10:10 Metamyelocytes % 1.0 % 01/09/21 10:10 Myelocytes % 1.0 % 01/09/21 10:10 Nucleated RBC % Not Reportable 01/10/21 04:01 Seg Neutrophils # 10.2 K/mm3 (1.8-7.7) H 01/14/21 05:00 Seg Neutrophils # Man 12.0 K/mm3 (1.8-7.7) H 01/10/21 04:01 Band Neutrophils # 0.3 K/mm3 01/10/21 04:01 Lymphocytes # (Manual) 0.4 K/mm3 (1.2-5.4) L 01/10/21 04:01 Abs React Lymphs (Man) 0.0 K/mm3 01/10/21 04:01 Monocytes # (Manual) 0.0 K/mm3 (0.0-0.8) 01/10/21 04:01 Eosinophils # (Manual) 0.0 K/mm3 (0.0-0.4) 01/10/21 04:01 Basophils # (Manual) 0.0 K/mm3 (0.0-0.1) 01/10/21 04:01 Metamyelocytes # 0.0 K/mm3 01/10/21 04:01 Myelocytes # 0.0 K/mm3 01/10/21 04:01 Promyelocytes # 0.0 K/mm3 01/10/21 04:01 Blast Cells # 0.0 K/mm3 01/10/21 04:01 WBC Morphology Not Reportable 01/10/21 04:01 Hypersegmented Neuts Not Reportable 01/10/21 04:01 Hyposegmented Neuts Not Reportable 01/10/21 04:01 Hypogranular Neuts Not Reportable 01/10/21 04:01 Smudge Cells Not Reportable 01/10/21 04:01 Toxic Granulation Not Reportable 01/10/21 04:01 Toxic Vacuolation Not Reportable 01/10/21 04:01 Dohle Bodies Not Reportable 01/10/21 04:01 Pelger-Huet Anomaly Not Reportable 01/10/21 04:01 Mirian Rods Not Reportable 01/10/21 04:01 Platelet Estimate Consistent w auto 01/10/21 04:01 Clumped Platelets Not Reportable 01/10/21 04:01 Plt Clumps, EDTA Not Reportable 01/10/21 04:01 Large Platelets Not Reportable 01/10/21 04:01 Giant Platelets Not Reportable 01/10/21 04:01 Platelet Satelliting Not Reportable 01/10/21 04:01 Plt Morphology Comment Not Reportable 01/10/21 04:01 RBC Morphology Not Reportable 01/10/21 04:01 Dimorphic RBCs Not Reportable 01/10/21 04:01 Polychromasia Not Reportable 01/10/21 04:01 Hypochromasia Few 01/10/21 04:01 Poikilocytosis Not Reportable 01/10/21 04:01 Anisocytosis Few 01/10/21 04:01 Microcytosis Few 01/10/21 04:01 Macrocytosis Not Reportable 01/10/21 04:01 Spherocytes Not Reportable 01/10/21 04:01 Pappenheimer Bodies Not Reportable 01/10/21 04:01 Sickle Cells Not Reportable 01/10/21 04:01 Target Cells Not Reportable 01/10/21 04:01 Tear Drop Cells Not Reportable 01/10/21 04:01 Ovalocytes Not Reportable 01/10/21 04:01 Helmet Cells Not Reportable 01/10/21 04:01 [place] Bodies Not Reportable 01/10/21 04:01 [place] Rings Not Reportable 01/10/21 04:01 [place] Cells Not Reportable 01/10/21 04:01 Bite Cells Not Reportable 01/10/21 04:01 Crenated Cell Not Reportable 01/10/21 04:01 Elliptocytes Not Reportable 01/10/21 04:01 Acanthocytes (Spur) Not Reportable 01/10/21 04:01 Rouleaux Not Reportable 01/10/21 04:01 Hemoglobin C Crystals Not Reportable 01/10/21 04:01 Schistocytes Not Reportable 01/10/21 04:01 Malaria parasites Not Reportable 01/10/21 04:01 Dylon Bodies Not Reportable 01/10/21 04:01 Hem Pathologist Commnt No 01/10/21 04:01 PT 15.4 Sec. (12.2-14.9) H 01/10/21 04:01 INR 1.17 (0.87-1.13) H 01/10/21 04:01 APTT 40.2 Sec. (24.2-36.6) H 01/10/21 04:01 Fibrinogen 817 mg/dl (211-480) H 01/10/21 04:01 ABG pH 7.512 (7.320-7.450) H 01/19/21 05:00 POC ABG pCO2 32.5 mmHg (32.0-48.0) 01/19/21 05:00 ABG pCO2 37.9 mm Hg 01/05/21 03:50 POC ABG pO2 47.8 mmHg (83-108) L 01/19/21 05:00 ABG pO2 136.8 mm Hg (80.0-90.0) H 01/05/21 03:50 POC ABG HCO3 25.5 01/19/21 05:00 ABG HCO3 22.4 mmol/L (20.0-26.0) 01/05/21 03:50 ABG O2 Saturation 84.4 (0-100) 01/19/21 05:00 ABG O2 Content 9.8 (0.0-44) 01/05/21 03:50 POC ABG Base Excess 2.6 01/19/21 05:00 ABG Base Excess -2.3 mmol/L (-2.0-3.0) L 01/05/21 03:50 ABG Hemoglobin 8.9 (12.0-17.5) L 01/19/21 05:00 ABG Oxyhemoglobin 83.3 (94-98) L 01/19/21 05:00 ABG Carboxyhemoglobin 1.5 % (0.0-5.0) 01/05/21 03:50 ABG Methemoglobin 0.3 (0.0-1.5) 01/19/21 05:00 ABG Sodium 151.5 mmol/L (136.0-145.0) H 01/19/21 05:00 ABG Potassium 2.9 mmol/L (3.40-4.50) L 01/19/21 05:00 ABG Chloride 117.0 mmol/L (98-107) H 01/19/21 05:00 ABG Glucose 111 mg/dL (65-95) H 01/19/21 05:00 Oxyhemoglobin 96.7 % (95.0-99.0) 01/05/21 03:50 Carboxyhemoglobin 1.0 (0.5-1.5) 01/19/21 05:00 FiO2 50 % 01/05/21 03:50 FiO2 % 30.0 01/19/21 05:00 Sodium 154 mmol/L (137-145) H 01/23/21 09:29 Potassium 4.6 mmol/L (3.6-5.0) 01/23/21 09:29 Chloride 117.6 mmol/L (98-107) H 01/23/21 09:29 Carbon Dioxide 27 mmol/L (22-30) 01/23/21 09:29 Anion Gap 14 mmol/L 01/23/21 09:29 BUN 41 mg/dL (9-20) H 01/23/21 09:29 Creatinine 1.1 mg/dL (0.8-1.3) 01/23/21 09:29 Estimated GFR > 60 ml/min 01/23/21 09:29 BUN/Creatinine Ratio 37 % 01/23/21 09:29 Glucose 122 mg/dL (75-100) H 01/23/21 09:29 POC Glucose 113 mg/dL (70-105) H 01/23/21 12:02 Lactic Acid 1.70 mmol/L (0.7-2.0) 12/20/20 16:20 Calcium 8.6 mg/dL (8.4-10.2) 01/23/21 09:29 Ionized Calcium 3.3 mg/dL (4.8-5.6) L 12/27/20 14:40 Phosphorus 4.40 mg/dL (2.5-4.5) 01/17/21 04:30 Magnesium 1.90 mg/dL (1.7-2.3) 01/20/21 07:25 Total Bilirubin 0.50 mg/dL (0.1-1.2) 01/16/21 04:30 AST 19 units/L (5-40) 01/16/21 04:30 ALT 18 units/L (7-56) 01/16/21 04:30 Alkaline Phosphatase 118 units/L (35-129) 01/16/21 04:30 Troponin T < 0.010 ng/mL (0.00-0.029) 12/20/20 13:58 C-Reactive Protein 4.00 mg/dL (0.00-1.30) H 01/22/21 17:05 Total Protein 6.4 g/dL (6.3-8.2) 01/16/21 04:30 Albumin 2.1 g/dL (3.9-5) L 01/16/21 04:30 Albumin/Globulin Ratio 0.5 % 01/16/21 04:30 Triglycerides 216 mg/dL (2-149) H 01/17/21 04:30 Procalcitonin 0.10 ng/mL (<0.15) 01/22/21 17:05 Arterial Blood Glucose 111 mg/dL (65-95) H 01/19/21 05:00 Arterial Blood Ionized Calcium 4.3 mg/dL (4.6-5.3) L 01/19/21 05:00 Urine Color Yellow (Yellow) 01/20/21 07:25 Urine Turbidity Clear (Clear) 01/20/21 07:25 Urine pH 6.0 (5.0-7.0) 01/20/21 07:25 Ur Specific [place] 1.008 (1.003-1.030) 01/20/21 07:25 Urine Protein 30 mg/dl mg/dL (Negative) 01/20/21 07:25 Urine Glucose (UA) Neg mg/dL (Negative) 01/20/21 07:25 Urine Ketones Neg mg/dL (Negative) 01/20/21 07:25 Urine Blood Lg (Negative) 01/20/21 07:25 Urine Nitrite Neg (Negative) 01/20/21 07:25 Urine Bilirubin Neg (Negative) 01/20/21 07:25 Urine Urobilinogen < 2.0 mg/dL (<2.0) 01/20/21 07:25 Ur Leukocyte Esterase Mod (Negative) 01/20/21 07:25 Urine WBC (Auto) 30.0 /HPF (0.0-6.0) H 01/20/21 07:25 Urine RBC (Auto) 5.0 /HPF (0.0-6.0) 01/20/21 07:25 U Epithel Cells (Auto) < 1.0 /HPF (0-13.0) 01/20/21 07:25 Urine Bacteria (Auto) 1+ /HPF (Negative) 01/20/21 07:25 Urine WBC Clumps 3+ /HPF 01/16/21 Unknown Ur Renal Epithelial Cell 8 /LPF 01/16/21 Unknown Triple Phos Crystals 2+ 12/23/20 12:15 Hyaline Casts 11 /LPF 01/16/21 Unknown Urine Mucus Few /HPF 01/16/21 Unknown Urine Eosinophils None seen (None Seen) 12/23/20 12:15 Urine Creatinine 17.6 mg/dL (0.1-20.0) 01/19/21 Unknown Urine Sodium 87 mmol/L 01/19/21 Unknown Fraction Sodium Excret 0.2 12/23/20 12:15 Random Vancomycin 5.8 ug/mL (0-40.0) 01/17/21 04:30 Coronavirus (PCR) Negative (Negative) 12/21/20 Unknown Hepatitis A IgM Ab Non-reactive (NonReactive) 12/30/20 14:40 Hep Bs Antigen Non-reactive (Negative) 12/30/20 14:40 Hep B Core IgM Ab Non-reactive (NonReactive) 12/30/20 14:40 Hepatitis C Antibody Non-reactive (NonReactive) 12/30/20 14:40 Blood Type A NEGATIVE 01/06/21 11:00 Antibody Screen Negative 01/06/21 11:00 Crossmatch See Detail 01/06/21 11:00 Microbiology: Microbiology 01/20/21 13:01 Peripheral/Venous Blood Culture - Preliminary NO GROWTH AFTER 72 HOURS 01/20/21 11:43 Peripheral/Venous Blood Culture - Preliminary NO GROWTH AFTER 72 HOURS 01/16/21 04:40 Peripheral/Venous Blood Culture - Preliminary A.baumannii/Haemolyticus Citrobacter Freundii Complex Enterobacter Cloacae 01/16/21 04:50 Peripheral/Venous Blood Culture - Preliminary A.baumannii/Haemolyticus Citrobacter Freundii Complex Haley/IV: Voiding Method Indwelling Catheter Active Medications - Current Medications Current Medications: Generic Name Dose Route Start Last Admin Trade Name Freq PRN Reason Stop Dose Admin Acetaminophen 650 mg 01/16/21 03:57 01/21/21 16:25 Acetaminophen 325 Mg/10.15 Ml Oral Liqd Unit Dose FEEDTUBE 650 mg Q6H PRN Administration Non Cardiac Pain or Temp>100.5 Lipase/Protease/Amylase 1 each 01/07/21 08:44 Lipase 10,500/Protease 25,000/Amylase 43,750 (Units) Dr Maharaj FEEDTUBE PRN PRN For Clogged Feeding Tube Dextrose 50 ml 12/24/20 10:49 Dextrose 50% In Water (25gm) 50 Ml Syringe IV Q30MIN PRN Hypoglycemia Protocol Famotidine 20 mg 01/17/21 10:00 01/23/21 10:07 Famotidine 20 Mg Tab PO 20 mg BID ASCENCION Administration Fentanyl 1 applic 01/11/21 14:00 01/23/21 10:05 Fentanyl 50 Mcg/Hr Patch 72hr TD 1 applic Q3D ASCENCION Administration Heparin Sodium (Porcine) 5,000 unit 01/06/21 14:00 01/23/21 14:00 Heparin 5,000 Unit/1 Ml Vial SUB-Q 5,000 unit Q8HR ASCENCION Administration Hydromorphone HCl 0.5 mg 01/12/21 10:10 01/17/21 15:00 Hydromorphone 1 Mg/1 Ml Inj IV 0.5 mg Q4H PRN Administration Pain , Severe (7-10) Hydromorphone HCl 0.25 mg 01/12/21 10:11 01/15/21 15:40 Hydromorphone 1 Mg/1 Ml Inj IV 0.25 mg Q4H PRN Administration Pain, Moderate (4-6) Hydromorphone HCl 1 mg 01/19/21 11:00 01/23/21 14:00 Hydromorphone 1 Mg/1 Ml Inj IV 1 mg Q4H ASCENCION Administration Hydrophilic Ointment 1 applic 12/20/20 21:58 Lip Therapy Vaseline TP Q2HR PRN Dry Lips Dexmedetomidine HCl 1,000 mcg/ 260 mls @ 7.322 mls/hr 01/15/21 01:00 01/23/21 14:00 Sodium Chloride IV 1.2 mcg/kg/hr TITRATE ASCENCION 43.93 mls/hr Administration Protocol 0.2 MCG/KG/HR Cefepime HCl 2 gm in 100 mls @ 200 mls/hr 01/20/21 12:00 01/23/21 10:05 Cefepime/Ns 2 Gm/100 Ml IV 01/26/21 22:29 200 mls/hr Q12HR ASCENCION Administration Protocol Dextrose 1,000 mls @ 75 mls/hr 01/21/21 12:00 01/23/21 11:50 D5w IV 75 mls/hr DIRECT ASCENCION Administration Insulin Human Regular 0 units 12/28/20 00:00 01/23/21 13:16 Insulin Regular, Human 100 Units/1 Ml SUB-Q Not Given Q6H ASCENCION Protocol Metoprolol Tartrate 5 mg 01/14/21 13:37 01/15/21 12:42 Metoprolol Tartrate 5 Mg/5 Ml Inj IV 5 mg Q6H PRN Administration SBP >/=160 Multi-Ingred Cream/Lotion/Oil/Oint 1 applic 12/20/20 21:58 01/03/21 01:13 Mineral Oil/Petrolatum, White Ophth Oint 3.5 Gm OU 1 applic Q4HR PRN Administration Dry Eye(s) Quetiapine Fumarate 50 mg 01/19/21 12:00 01/23/21 10:05 Quetiapine 25 Mg Tab PO 50 mg BID ASCENCION Administration Simple Syrup 15 ml 01/07/21 08:44 Simple Syrup 15 Ml FEEDTUBE PRN PRN Hypoglycemia Sodium Bicarbonate 325 mg 01/07/21 08:44 Sodium Bicarbonate 325 Mg Tab FEEDTUBE PRN PRN For Clogged Feeding Tube Sodium Chloride 10 ml 12/20/20 22:00 01/23/21 10:06 Sodium Chloride 0.9% 10 Ml Flush Syringe IV 10 ml BID ASCENCION Administration Sodium Chloride 10 ml 12/20/20 16:42 01/17/21 06:01 Sodium Chloride 0.9% 10 Ml Flush Syringe IV 10 ml PRN PRN Administration LINE FLUSH Nutrition/Malnutrition Assess - Dietary Evaluation Nutrition/Malnutrition Findings: Nutrition Notes Start: 12/21/20 09:06 Freq: Status: Active Protocol: Document 01/23/21 11:45 MK (Rec: 01/23/21 11:51 MK [id number]) Nutrition Notes Initial or Follow up Reassessment Current Diagnosis Acute Kidney Injury,Coronary Artery Disease,Sepsis, Hypertension,Small Bowel Obstruction,Hyperlipidemia Other Pertinent Diagnosis gangrenous small bowel, s/p small bowel ressection, peritonitis Current Diet Nepro 1.8 at 40 ml/hr Labs/Tests Na 154 BUN 41 Pertinent Medications Reviewed Height 6 ft Weight 103.1 kg [place] Body Weight (kg) 80.90 BMI 30.8 Weight change and time frame pt has edema Weight Status Obese Subjective/Other Information FU for TF tolerance. Per RN, pt tolerating TF. Observed TF at 40ml/hr. Informed RN of correct goal rate. Per chart, pt receiving 300 ml water flush q4h. Percent of energy/protein needs met: 87%/46% Burn Absent Trauma Absent Current % PO Negligible Minimum of two criteria No Fluid Accumulation Moderate to Severe (severe) #2 Nutrition Diagnosis Increased nutrient needs ( specify in comment below) Diagnosis Progress(for reassessment Continues documentation) #1 Nutrition Diagnosis Inadequate oral intake Diagnosis Progress(for reassessment Continues documentation) Is patient on ventilator? Yes Is Patient Ambulatory and/or Out of Bed No REE-(Person-[facility]-confined to bed) [phone] Kcal/Kg value to use for calculation 16 Approximate Energy Requirements Using 1650 kcal/Kg Calculation Used for Recommendations Kcal/kg Additional Notes Pro needs >162g(>2g/kgIBW: 80. 90) Fluid needs per MD. Nutrition Intervention Change Diet Order: Continue Nutrition Support: Osmolite 1.5 at 50 ml/hr. Flush 200 ml q2h for hypernatermia or per MD. Once resolved, flush 150 ml q4h or per MD. Kcal 1,800 Protein (gm) 75 Fluid (mL) 914 Goal #1 TF tolerance Goal #2 Meet at least 75% of kcal and protein needs via TF Follow-Up By: 01/25/21 Additional Comments FU for TF tolerance
--- NOTE | 2021-01-24 00:52 | Progress Note ---
Assessment and Plan Imp: 1. Ischemic bowel with acute peritonitis 2. Severe sepsis with shock 3. Acute respiratory failure, hypoxia 4. JONI 5. Morbid obesity 6. Lactic acidosis Rec: 1. PSV trials; needs trach 2. ABX per ID 3. Avoid sedation as much as possible 4. TPN, GI/DVT PPx 5. Off HD; monitor labs 6. DVT PPx 7. Await LTAC transfer 8. Complex decision-making Plan of care reviewed with patient, he understands/agrees Subjective Date of service: 01/23/21 Principal diagnosis: SBO and necrosis of large part of small intestine Interval history: No events. Awake, alert on ventilator without obvious complaints. Active Medications Acetaminophen (Acetaminophen 325 Mg/10.15 Ml Oral Liqd Unit Dose) 650 mg FEEDTUBE Q6H PRN PRN Reason: Non Cardiac Pain or Temp>100.5 Last Admin: 01/21/21 16:25 Dose: 650 mg Documented by: Lipase/Protease/Amylase (Lipase 10,500/Protease 25,000/Amylase 43,750 (Units) Dr Maharaj) 1 each FEEDTUBE PRN PRN PRN Reason: For Clogged Feeding Tube Dextrose (Dextrose 50% In Water (25gm) 50 Ml Syringe) 50 ml IV Q30MIN PRN; Protocol PRN Reason: Hypoglycemia Famotidine (Famotidine 20 Mg Tab) 20 mg PO BID [facility] Last Admin: 01/23/21 21:07 Dose: 20 mg Documented by: Fentanyl (Fentanyl 50 Mcg/Hr Patch 72hr) 1 applic TD Q3D [facility] Last Admin: 01/23/21 10:05 Dose: 1 applic Documented by: Heparin Sodium (Porcine) (Heparin 5,000 Unit/1 Ml Vial) 5,000 unit SUB-Q Q8HR [facility] Last Admin: 01/23/21 21:15 Dose: 5,000 unit Documented by: Hydromorphone HCl (Hydromorphone 1 Mg/1 Ml Inj) 0.5 mg IV Q4H PRN PRN Reason: Pain , Severe (7-10) Last Admin: 01/17/21 15:00 Dose: 0.5 mg Documented by: Hydromorphone HCl (Hydromorphone 1 Mg/1 Ml Inj) 0.25 mg IV Q4H PRN PRN Reason: Pain, Moderate (4-6) Last Admin: 01/15/21 15:40 Dose: 0.25 mg Documented by: Hydromorphone HCl (Hydromorphone 1 Mg/1 Ml Inj) 1 mg IV Q4H [facility] Last Admin: 01/23/21 18:35 Dose: 1 mg Documented by: Hydrophilic Ointment (Lip Therapy Vaseline) 1 applic TP Q2HR PRN PRN Reason: Dry Lips Dexmedetomidine HCl 1,000 mcg/ (Sodium Chloride) 260 mls @ 7.322 mls/hr IV TITRATE [facility]; Protocol Last Admin: 01/23/21 21:57 Dose: 1.2 mcg/kg/hr, 43.93 mls/hr Documented by: Cefepime HCl (Cefepime/Ns 2 Gm/100 Ml) 2 gm in 100 mls @ 200 mls/hr IV Q12HR [facility]; Protocol Stop: 01/26/21 22:29 Last Admin: 01/23/21 21:08 Dose: 200 mls/hr Documented by: Dextrose (D5w) 1,000 mls @ 75 mls/hr IV DIRECT [facility] Last Admin: 01/23/21 11:50 Dose: 75 mls/hr Documented by: Insulin Human Regular (Insulin Regular, Human 100 Units/1 Ml) 0 units SUB-Q Q6H [facility]; Protocol Last Admin: 01/23/21 18:04 Dose: Not Given Documented by: Metoprolol Tartrate (Metoprolol Tartrate 5 Mg/5 Ml Inj) 5 mg IV Q6H PRN PRN Reason: SBP >/=160 Last Admin: 01/15/21 12:42 Dose: 5 mg Documented by: Multi-Ingred Cream/Lotion/Oil/Oint (Mineral Oil/Petrolatum, White Ophth Oint 3.5 Gm) 1 applic OU Q4HR PRN PRN Reason: Dry Eye(s) Last Admin: 01/03/21 01:13 Dose: 1 applic Documented by: Quetiapine Fumarate (Quetiapine 25 Mg Tab) 50 mg PO BID [facility] Last Admin: 01/23/21 21:07 Dose: 50 mg Documented by: Simple Syrup (Simple Syrup 15 Ml) 15 ml FEEDTUBE PRN PRN PRN Reason: Hypoglycemia Sodium Bicarbonate (Sodium Bicarbonate 325 Mg Tab) 325 mg FEEDTUBE PRN PRN PRN Reason: For Clogged Feeding Tube Sodium Chloride (Sodium Chloride 0.9% 10 Ml Flush Syringe) 10 ml IV BID [facility] Last Admin: 01/23/21 10:06 Dose: 10 ml Documented by: Sodium Chloride (Sodium Chloride 0.9% 10 Ml Flush Syringe) 10 ml IV PRN PRN PRN Reason: LINE FLUSH Last Admin: 01/17/21 06:01 Dose: 10 ml Documented by: Objective Vital Signs - 12hr 01/23/21 01/23/21 01/23/21 13:01 13:15 13:31 Temperature Pulse Rate 83 80 80 Pulse Rate [ From Monitor] Respiratory Rate Blood Pressure 95/58 95/58 95/58 O2 Sat by Pulse 100 100 100 Oximetry 01/23/21 01/23/21 01/23/21 13:45 14:00 14:15 Temperature Pulse Rate 81 88 87 Pulse Rate [ From Monitor] Respiratory Rate Blood Pressure 95/58 105/48 105/48 O2 Sat by Pulse 99 100 99 Oximetry 01/23/21 01/23/21 01/23/21 14:31 14:37 14:45 Temperature Pulse Rate 90 89 85 Pulse Rate [ From Monitor] Respiratory Rate Blood Pressure 105/48 105/48 105/48 O2 Sat by Pulse 99 100 98 Oximetry 01/23/21 01/23/21 01/23/21 15:00 15:15 15:31 Temperature Pulse Rate 82 85 84 Pulse Rate [ From Monitor] Respiratory Rate Blood Pressure 109/56 109/56 109/56 O2 Sat by Pulse 98 99 99 Oximetry 01/23/21 01/23/21 01/23/21 15:45 16:00 16:15 Temperature Pulse Rate 78 81 81 Pulse Rate [ From Monitor] Respiratory Rate Blood Pressure 109/56 98/61 98/61 O2 Sat by Pulse 100 100 99 Oximetry 01/23/21 01/23/21 01/23/21 16:31 16:34 16:45 Temperature 98.8 F Pulse Rate 81 84 Pulse Rate [ From Monitor] Respiratory Rate Blood Pressure 98/61 98/61 O2 Sat by Pulse 100 100 Oximetry 01/23/21 01/23/21 01/23/21 17:01 17:15 17:20 Temperature Pulse Rate 86 88 84 Pulse Rate [ From Monitor] Respiratory Rate Blood Pressure 96/61 96/61 96/61 O2 Sat by Pulse 100 100 100 Oximetry 07/12/0901/23/21 01/23/21 17:31 17:45 18:01 Temperature Pulse Rate 103 H 91 H 91 H Pulse Rate [ From Monitor] Respiratory Rate Blood Pressure 96/61 98/61 110/89 O2 Sat by Pulse 69 L 100 100 Oximetry 01/23/21 01/23/21 01/23/21 18:15 18:31 18:45 Temperature Pulse Rate 91 H 88 91 H Pulse Rate [ From Monitor] Respiratory Rate Blood Pressure 96/61 96/61 96/61 O2 Sat by Pulse 98 98 97 Oximetry 01/23/21 01/23/21 01/23/21 19:01 19:15 19:31 Temperature Pulse Rate 93 H 92 H 86 Pulse Rate [ From Monitor] Respiratory Rate Blood Pressure 104/62 104/62 104/62 O2 Sat by Pulse 97 94 97 Oximetry 01/23/21 01/23/21 01/23/21 19:45 19:57 20:00 Temperature 99.2 F Pulse Rate 87 88 Pulse Rate [ 88 From Monitor] Respiratory 24 Rate Blood Pressure 104/62 O2 Sat by Pulse 95 99 Oximetry 01/23/21 01/23/21 01/23/21 20:01 20:15 20:31 Temperature Pulse Rate 87 84 87 Pulse Rate [ From Monitor] Respiratory Rate Blood Pressure 109/59 109/59 109/59 O2 Sat by Pulse 96 98 99 Oximetry 01/23/21 01/23/21 01/23/21 20:45 20:47 21:00 Temperature Pulse Rate 87 86 85 Pulse Rate [ From Monitor] Respiratory Rate Blood Pressure 109/59 109/59 96/57 O2 Sat by Pulse 98 100 100 Oximetry 01/24/21 01/24/21 00:00 00:19 Temperature 99.2 F 98.8 F Pulse Rate Pulse Rate [ From Monitor] Respiratory Rate Blood Pressure O2 Sat by Pulse Oximetry Constitutional: alert, other (intubated, awake, alert) Eyes: non-icteric ENT: oropharynx moist Neck: supple Effort: normal Ascultation: Bilateral: clear Cardiovascular: regular rate and rhythm (no mrg) Gastrointestinal: soft, non-distended, other (binder in place) Integumentary: normal Extremities: no cyanosis, no edema, pink and warm Neurologic: normal mental status, non-focal exam Psychiatric: mood appropriate, affect normal CBC and BMP: 01/22/21 10:08 01/23/21 09:29 ABG, PT/INR, D-dimer: ABG ABG pH 7.512 (7.320-7.450) H 01/19/21 05:00 POC ABG pCO2 32.5 mmHg (32.0-48.0) 01/19/21 05:00 ABG pCO2 37.9 mm Hg 01/05/21 03:50 POC ABG pO2 47.8 mmHg (83-108) L 01/19/21 05:00 ABG pO2 136.8 mm Hg (80.0-90.0) H 01/05/21 03:50 POC ABG HCO3 25.5 01/19/21 05:00 ABG O2 Saturation 84.4 (0-100) 01/19/21 05:00 PT/INR, D-dimer PT 15.4 Sec. (12.2-14.9) H 01/10/21 04:01 INR 1.17 (0.87-1.13) H 01/10/21 04:01 Abnormal lab findings: Abnormal Labs 12/20/20 12/20/20 12/20/20 13:58 13:58 13:58 WBC 41.1 H* RBC 5.59 H Hgb 16.2 H Hct 47.7 H MCV MCHC RDW 15.5 H Plt Count 486 H Lymph % (Auto) Eos % (Auto) Lymph # (Auto) Eos # (Auto) Seg Neutrophils % Seg Neuts % (Manual) Lymphocytes % (Manual) Seg Neutrophils # Seg Neutrophils # Man Lymphocytes # (Manual) Monocytes # (Manual) PT INR APTT Fibrinogen ABG pH POC ABG pCO2 POC ABG pO2 ABG pO2 ABG Base Excess ABG Hemoglobin ABG Oxyhemoglobin ABG Sodium ABG Potassium ABG Chloride ABG Glucose Carboxyhemoglobin Sodium 130 L Potassium Chloride 80.7 L Carbon Dioxide BUN 37 H Creatinine Glucose 101 H POC Glucose Lactic Acid 3.20 H* Calcium Ionized Calcium Phosphorus Magnesium AST Alkaline Phosphatase 142 H C-Reactive Protein Total Protein 6.2 L Albumin 2.2 L Triglycerides Arterial Blood Glucose Arterial Blood Ionized Calcium Urine WBC (Auto) Urine Creatinine Crossmatch 12/20/20 12/20/20 12/20/20 13:58 20:35 21:30 WBC RBC Hgb Hct MCV MCHC RDW Plt Count Lymph % (Auto) Eos % (Auto) Lymph # (Auto) Eos # (Auto) Seg Neutrophils % Seg Neuts % (Manual) Lymphocytes % (Manual) Seg Neutrophils # Seg Neutrophils # Man Lymphocytes # (Manual) Monocytes # (Manual) PT INR APTT 49.4 H Fibrinogen ABG pH 7.313 L POC ABG pCO2 POC ABG pO2 ABG pO2 104.4 H ABG Base Excess ABG Hemoglobin ABG Oxyhemoglobin ABG Sodium ABG Potassium ABG Chloride ABG Glucose Carboxyhemoglobin Sodium Potassium Chloride Carbon Dioxide BUN Creatinine Glucose POC Glucose 122 H Lactic Acid Calcium Ionized Calcium Phosphorus Magnesium AST Alkaline Phosphatase C-Reactive Protein Total Protein Albumin Triglycerides Arterial Blood Glucose Arterial Blood Ionized Calcium Urine WBC (Auto) Urine Creatinine Crossmatch 12/21/20 12/21/20 12/21/20 03:06 08:14 08:14 WBC 23.9 H RBC Hgb Hct MCV MCHC RDW 15.7 H Plt Count Lymph % (Auto) Eos % (Auto) Lymph # (Auto) Eos # (Auto) Seg Neutrophils % Seg Neuts % (Manual) 91.0 H Lymphocytes % (Manual) 3.0 L Seg Neutrophils # Seg Neutrophils # Man 21.7 H Lymphocytes # (Manual) 0.7 L Monocytes # (Manual) 1.4 H PT INR APTT Fibrinogen ABG pH 7.464 H POC ABG pCO2 POC ABG pO2 202.9 H ABG pO2 ABG Base Excess ABG Hemoglobin ABG Oxyhemoglobin ABG Sodium 133.7 L ABG Potassium ABG Chloride ABG Glucose 122 H Carboxyhemoglobin Sodium Potassium Chloride Carbon Dioxide BUN 46 H Creatinine Glucose 103 H POC Glucose Lactic Acid Calcium 6.6 L D Ionized Calcium Phosphorus Magnesium AST Alkaline Phosphatase C-Reactive Protein Total Protein 5.4 L Albumin 2.3 L Triglycerides Arterial Blood Glucose 122 H Arterial Blood Ionized Calcium 3.5 L Urine WBC (Auto) Urine Creatinine Crossmatch 12/21/20 12/21/20 12/22/20 17:18 21:28 04:45 WBC 22.9 H RBC Hgb Hct MCV MCHC RDW 15.7 H Plt Count Lymph % (Auto) Eos % (Auto) Lymph # (Auto) Eos # (Auto) Seg Neutrophils % Seg Neuts % (Manual) Lymphocytes % (Manual) Seg Neutrophils # Seg Neutrophils # Man Lymphocytes # (Manual) Monocytes # (Manual) PT INR APTT Fibrinogen ABG pH POC ABG pCO2 POC ABG pO2 ABG pO2 ABG Base Excess ABG Hemoglobin ABG Oxyhemoglobin ABG Sodium ABG Potassium ABG Chloride ABG Glucose Carboxyhemoglobin Sodium Potassium Chloride Carbon Dioxide BUN Creatinine Glucose POC Glucose 108 H Lactic Acid Calcium Ionized Calcium 4.1 L Phosphorus Magnesium AST Alkaline Phosphatase C-Reactive Protein Total Protein Albumin Triglycerides Arterial Blood Glucose Arterial Blood Ionized Calcium Urine WBC (Auto) Urine Creatinine Crossmatch 12/22/20 12/22/20 12/22/20 04:45 05:00 11:38 WBC RBC Hgb Hct MCV MCHC RDW Plt Count Lymph % (Auto) Eos % (Auto) Lymph # (Auto) Eos # (Auto) Seg Neutrophils % Seg Neuts % (Manual) Lymphocytes % (Manual) Seg Neutrophils # Seg Neutrophils # Man Lymphocytes # (Manual) Monocytes # (Manual) PT INR APTT Fibrinogen ABG pH 7.462 H POC ABG pCO2 POC ABG pO2 ABG pO2 ABG Base Excess ABG Hemoglobin ABG Oxyhemoglobin ABG Sodium ABG Potassium ABG Chloride ABG Glucose 118 H Carboxyhemoglobin Sodium 146 H Potassium Chloride Carbon Dioxide BUN 45 H Creatinine Glucose 116 H POC Glucose 115 H Lactic Acid Calcium 6.9 L Ionized Calcium Phosphorus Magnesium AST Alkaline Phosphatase C-Reactive Protein Total Protein Albumin Triglycerides Arterial Blood Glucose 118 H Arterial Blood Ionized Calcium 3.8 L Urine WBC (Auto) Urine Creatinine Crossmatch 12/22/20 12/23/20 12/23/20 23:26 04:43 04:45 WBC 22.2 H RBC Hgb Hct MCV MCHC RDW 16.1 H Plt Count Lymph % (Auto) Eos % (Auto) Lymph # (Auto) Eos # (Auto) Seg Neutrophils % Seg Neuts % (Manual) Lymphocytes % (Manual) Seg Neutrophils # Seg Neutrophils # Man Lymphocytes # (Manual) Monocytes # (Manual) PT INR APTT Fibrinogen ABG pH POC ABG pCO2 POC ABG pO2 ABG pO2 ABG Base Excess ABG Hemoglobin ABG Oxyhemoglobin ABG Sodium 147.4 H ABG Potassium ABG Chloride 112.0 H ABG Glucose 130 H Carboxyhemoglobin 0.4 L Sodium Potassium Chloride Carbon Dioxide BUN Creatinine Glucose POC Glucose 110 H Lactic Acid Calcium Ionized Calcium Phosphorus Magnesium AST Alkaline Phosphatase C-Reactive Protein Total Protein Albumin Triglycerides Arterial Blood Glucose 130 H Arterial Blood Ionized Calcium 3.8 L Urine WBC (Auto) Urine Creatinine Crossmatch 12/23/20 12/23/20 12/23/20 04:45 05:17 11:22 WBC RBC Hgb Hct MCV MCHC RDW Plt Count Lymph % (Auto) Eos % (Auto) Lymph # (Auto) Eos # (Auto) Seg Neutrophils % Seg Neuts % (Manual) Lymphocytes % (Manual) Seg Neutrophils # Seg Neutrophils # Man Lymphocytes # (Manual) Monocytes # (Manual) PT INR APTT Fibrinogen ABG pH POC ABG pCO2 POC ABG pO2 ABG pO2 ABG Base Excess ABG Hemoglobin ABG Oxyhemoglobin ABG Sodium ABG Potassium ABG Chloride ABG Glucose Carboxyhemoglobin Sodium 154 H D Potassium Chloride 110.9 H Carbon Dioxide BUN 54 H Creatinine 1.8 H Glucose 115 H POC Glucose 116 H 130 H Lactic Acid Calcium 7.0 L Ionized Calcium Phosphorus Magnesium AST Alkaline Phosphatase C-Reactive Protein Total Protein Albumin Triglycerides Arterial Blood Glucose Arterial Blood Ionized Calcium Urine WBC (Auto) Urine Creatinine Crossmatch 12/23/20 12/23/20 12/23/20 12:15 12:15 23:15 WBC RBC Hgb Hct MCV MCHC RDW Plt Count Lymph % (Auto) Eos % (Auto) Lymph # (Auto) Eos # (Auto) Seg Neutrophils % Seg Neuts % (Manual) Lymphocytes % (Manual) Seg Neutrophils # Seg Neutrophils # Man Lymphocytes # (Manual) Monocytes # (Manual) PT INR APTT Fibrinogen ABG pH POC ABG pCO2 POC ABG pO2 ABG pO2 ABG Base Excess ABG Hemoglobin ABG Oxyhemoglobin ABG Sodium ABG Potassium ABG Chloride ABG Glucose Carboxyhemoglobin Sodium 154 H Potassium Chloride Carbon Dioxide BUN Creatinine 1.5 H Glucose POC Glucose 132 H Lactic Acid Calcium Ionized Calcium Phosphorus Magnesium AST Alkaline Phosphatase C-Reactive Protein Total Protein Albumin Triglycerides Arterial Blood Glucose Arterial Blood Ionized Calcium Urine WBC (Auto) Urine Creatinine 78.1 H Crossmatch 12/24/20 12/24/20 12/24/20 04:19 04:30 04:30 WBC 18.3 H RBC Hgb Hct MCV MCHC RDW 16.5 H Plt Count Lymph % (Auto) Eos % (Auto) Lymph # (Auto) Eos # (Auto) Seg Neutrophils % Seg Neuts % (Manual) Lymphocytes % (Manual) Seg Neutrophils # Seg Neutrophils # Man Lymphocytes # (Manual) Monocytes # (Manual) PT INR APTT Fibrinogen ABG pH POC ABG pCO2 POC ABG pO2 ABG pO2 ABG Base Excess ABG Hemoglobin ABG Oxyhemoglobin ABG Sodium 149.7 H ABG Potassium ABG Chloride 116.0 H ABG Glucose 180 H Carboxyhemoglobin Sodium 155 H Potassium Chloride 116.1 H Carbon Dioxide BUN 52 H Creatinine 1.5 H Glucose 175 H POC Glucose Lactic Acid Calcium 6.8 L Ionized Calcium Phosphorus Magnesium 3.00 H AST Alkaline Phosphatase C-Reactive Protein Total Protein 5.7 L Albumin 1.8 L Triglycerides Arterial Blood Glucose 180 H Arterial Blood Ionized Calcium 3.7 L Urine WBC (Auto) Urine Creatinine Crossmatch 12/24/20 12/24/20 12/24/20 05:24 11:21 18:05 WBC RBC Hgb Hct MCV MCHC RDW Plt Count Lymph % (Auto) Eos % (Auto) Lymph # (Auto) Eos # (Auto) Seg Neutrophils % Seg Neuts % (Manual) Lymphocytes % (Manual) Seg Neutrophils # Seg Neutrophils # Man Lymphocytes # (Manual) Monocytes # (Manual) PT INR APTT Fibrinogen ABG pH POC ABG pCO2 POC ABG pO2 ABG pO2 ABG Base Excess ABG Hemoglobin ABG Oxyhemoglobin ABG Sodium ABG Potassium ABG Chloride ABG Glucose Carboxyhemoglobin Sodium Potassium Chloride Carbon Dioxide BUN Creatinine Glucose POC Glucose 153 H 154 H 133 H Lactic Acid Calcium Ionized Calcium Phosphorus Magnesium AST Alkaline Phosphatase C-Reactive Protein Total Protein Albumin Triglycerides Arterial Blood Glucose Arterial Blood Ionized Calcium Urine WBC (Auto) Urine Creatinine Crossmatch 12/25/20 12/25/20 12/25/20 04:00 07:00 07:00 WBC 17.6 H RBC Hgb Hct MCV MCHC 31 L RDW 16.0 H Plt Count Lymph % (Auto) Eos % (Auto) Lymph # (Auto) Eos # (Auto) Seg Neutrophils % Seg Neuts % (Manual) Lymphocytes % (Manual) Seg Neutrophils # Seg Neutrophils # Man Lymphocytes # (Manual) Monocytes # (Manual) PT INR APTT Fibrinogen ABG pH POC ABG pCO2 POC ABG pO2 ABG pO2 ABG Base Excess ABG Hemoglobin ABG Oxyhemoglobin ABG Sodium 152.5 H ABG Potassium ABG Chloride 119.0 H ABG Glucose 136 H Carboxyhemoglobin Sodium Potassium Chloride Carbon Dioxide BUN Creatinine Glucose POC Glucose Lactic Acid Calcium Ionized Calcium Phosphorus Magnesium 2.70 H AST Alkaline Phosphatase C-Reactive Protein Total Protein Albumin Triglycerides Arterial Blood Glucose 136 H Arterial Blood Ionized Calcium 3.7 L Urine WBC (Auto) Urine Creatinine Crossmatch 12/25/20 12/25/20 12/25/20 07:00 11:24 16:32 WBC RBC Hgb Hct MCV MCHC RDW Plt Count Lymph % (Auto) Eos % (Auto) Lymph # (Auto) Eos # (Auto) Seg Neutrophils % Seg Neuts % (Manual) Lymphocytes % (Manual) Seg Neutrophils # Seg Neutrophils # Man Lymphocytes # (Manual) Monocytes # (Manual) PT INR APTT Fibrinogen ABG pH POC ABG pCO2 POC ABG pO2 ABG pO2 ABG Base Excess ABG Hemoglobin ABG Oxyhemoglobin ABG Sodium ABG Potassium ABG Chloride ABG Glucose Carboxyhemoglobin Sodium 156 H Potassium Chloride 118.0 H Carbon Dioxide BUN 44 H Creatinine 1.7 H Glucose 126 H POC Glucose 110 H 126 H Lactic Acid Calcium 6.9 L Ionized Calcium Phosphorus Magnesium AST Alkaline Phosphatase C-Reactive Protein Total Protein Albumin Triglycerides Arterial Blood Glucose Arterial Blood Ionized Calcium Urine WBC (Auto) Urine Creatinine Crossmatch 12/25/20 12/25/20 12/26/20 18:18 23:23 03:30 WBC RBC Hgb Hct MCV MCHC RDW Plt Count Lymph % (Auto) Eos % (Auto) Lymph # (Auto) Eos # (Auto) Seg Neutrophils % Seg Neuts % (Manual) Lymphocytes % (Manual) Seg Neutrophils # Seg Neutrophils # Man Lymphocytes # (Manual) Monocytes # (Manual) PT INR APTT Fibrinogen ABG pH POC ABG pCO2 POC ABG pO2 ABG pO2 ABG Base Excess ABG Hemoglobin 11.8 L ABG Oxyhemoglobin ABG Sodium ABG Potassium 4.7 H ABG Chloride 114.0 H ABG Glucose 132 H Carboxyhemoglobin Sodium 151 H Potassium Chloride 114.3 H Carbon Dioxide BUN 51 H Creatinine 2.6 H D Glucose 122 H POC Glucose 115 H Lactic Acid Calcium 6.4 L Ionized Calcium Phosphorus Magnesium AST Alkaline Phosphatase C-Reactive Protein Total Protein Albumin Triglycerides Arterial Blood Glucose 132 H Arterial Blood Ionized Calcium 3.6 L Urine WBC (Auto) Urine Creatinine Crossmatch 12/26/20 12/26/20 12/26/20 04:55 06:01 06:01 WBC 21.6 H RBC Hgb Hct MCV MCHC 31 L RDW 16.5 H Plt Count 136 L Lymph % (Auto) Eos % (Auto) Lymph # (Auto) Eos # (Auto) Seg Neutrophils % Seg Neuts % (Manual) Lymphocytes % (Manual) Seg Neutrophils # Seg Neutrophils # Man Lymphocytes # (Manual) Monocytes # (Manual) PT INR APTT Fibrinogen ABG pH POC ABG pCO2 POC ABG pO2 ABG pO2 ABG Base Excess ABG Hemoglobin ABG Oxyhemoglobin ABG Sodium ABG Potassium ABG Chloride ABG Glucose Carboxyhemoglobin Sodium 173 H* D Potassium 6.1 H* D Chloride 137.0 H Carbon Dioxide BUN 73 H Creatinine 3.8 H Glucose 125 H POC Glucose 112 H Lactic Acid Calcium 6.2 L Ionized Calcium Phosphorus 5.70 H D Magnesium 2.90 H AST Alkaline Phosphatase C-Reactive Protein Total Protein Albumin Triglycerides Arterial Blood Glucose Arterial Blood Ionized Calcium Urine WBC (Auto) Urine Creatinine Crossmatch 12/26/20 12/26/20 12/26/20 08:33 11:19 22:00 WBC RBC Hgb Hct MCV MCHC RDW Plt Count Lymph % (Auto) Eos % (Auto) Lymph # (Auto) Eos # (Auto) Seg Neutrophils % Seg Neuts % (Manual) Lymphocytes % (Manual) Seg Neutrophils # Seg Neutrophils # Man Lymphocytes # (Manual) Monocytes # (Manual) PT INR APTT Fibrinogen ABG pH POC ABG pCO2 POC ABG pO2 ABG pO2 ABG Base Excess ABG Hemoglobin ABG Oxyhemoglobin ABG Sodium ABG Potassium ABG Chloride ABG Glucose Carboxyhemoglobin Sodium 147 H D Potassium 5.8 H D Chloride 108.8 H Carbon Dioxide 21 L BUN 68 H 68 H Creatinine 3.8 H 4.1 H Glucose 144 H 154 H POC Glucose 144 H Lactic Acid Calcium 6.5 L 5.8 L* Ionized Calcium Phosphorus Magnesium AST 215 H Alkaline Phosphatase C-Reactive Protein Total Protein 4.7 L Albumin 1.5 L Triglycerides Arterial Blood Glucose Arterial Blood Ionized Calcium Urine WBC (Auto) Urine Creatinine Crossmatch 12/26/20 12/26/20 12/27/20 23:13 Unknown 00:25 WBC RBC Hgb 11.1 L Hct MCV MCHC RDW Plt Count Lymph % (Auto) Eos % (Auto) Lymph # (Auto) Eos # (Auto) Seg Neutrophils % Seg Neuts % (Manual) Lymphocytes % (Manual) Seg Neutrophils # Seg Neutrophils # Man Lymphocytes # (Manual) Monocytes # (Manual) PT INR APTT Fibrinogen ABG pH POC ABG pCO2 POC ABG pO2 ABG pO2 ABG Base Excess ABG Hemoglobin ABG Oxyhemoglobin ABG Sodium ABG Potassium ABG Chloride ABG Glucose Carboxyhemoglobin Sodium Potassium Chloride Carbon Dioxide BUN Creatinine Glucose POC Glucose 163 H Lactic Acid Calcium Ionized Calcium Phosphorus 5.60 H Magnesium AST Alkaline Phosphatase C-Reactive Protein Total Protein Albumin Triglycerides Arterial Blood Glucose Arterial Blood Ionized Calcium Urine WBC (Auto) Urine Creatinine Crossmatch 12/27/20 12/27/20 12/27/20 02:57 04:15 04:15 WBC 28.5 H RBC Hgb 11.2 L Hct MCV MCHC 31 L RDW 16.5 H Plt Count 130 L Lymph % (Auto) Eos % (Auto) Lymph # (Auto) Eos # (Auto) Seg Neutrophils % Seg Neuts % (Manual) Lymphocytes % (Manual) Seg Neutrophils # Seg Neutrophils # Man Lymphocytes # (Manual) Monocytes # (Manual) PT INR APTT Fibrinogen ABG pH 7.238 L POC ABG pCO2 POC ABG pO2 139.1 H ABG pO2 ABG Base Excess ABG Hemoglobin 11.2 L ABG Oxyhemoglobin ABG Sodium 133.8 L ABG Potassium 5.2 H ABG Chloride ABG Glucose 182 H Carboxyhemoglobin Sodium 136 L Potassium 6.0 H Chloride Carbon Dioxide 18 L BUN 68 H Creatinine 4.1 H Glucose 166 H POC Glucose Lactic Acid Calcium 6.2 L Ionized Calcium Phosphorus 7.30 H D Magnesium AST Alkaline Phosphatase C-Reactive Protein Total Protein Albumin Triglycerides 164 H Arterial Blood Glucose 182 H Arterial Blood Ionized Calcium 3.4 L Urine WBC (Auto) Urine Creatinine Crossmatch 12/27/20 12/27/20 12/27/20 04:50 10:51 11:17 WBC RBC Hgb Hct MCV MCHC RDW Plt Count Lymph % (Auto) Eos % (Auto) Lymph # (Auto) Eos # (Auto) Seg Neutrophils % Seg Neuts % (Manual) Lymphocytes % (Manual) Seg Neutrophils # Seg Neutrophils # Man Lymphocytes # (Manual) Monocytes # (Manual) PT INR APTT Fibrinogen ABG pH POC ABG pCO2 POC ABG pO2 ABG pO2 ABG Base Excess ABG Hemoglobin ABG Oxyhemoglobin ABG Sodium ABG Potassium ABG Chloride ABG Glucose Carboxyhemoglobin Sodium Potassium Chloride Carbon Dioxide BUN Creatinine Glucose POC Glucose 140 H 113 H 154 H Lactic Acid Calcium Ionized Calcium Phosphorus Magnesium AST Alkaline Phosphatase C-Reactive Protein Total Protein Albumin Triglycerides Arterial Blood Glucose Arterial Blood Ionized Calcium Urine WBC (Auto) Urine Creatinine Crossmatch 12/27/20 12/27/20 12/27/20 12:40 14:40 23:17 WBC RBC Hgb Hct MCV MCHC RDW Plt Count Lymph % (Auto) Eos % (Auto) Lymph # (Auto) Eos # (Auto) Seg Neutrophils % Seg Neuts % (Manual) Lymphocytes % (Manual) Seg Neutrophils # Seg Neutrophils # Man Lymphocytes # (Manual) Monocytes # (Manual) PT INR APTT Fibrinogen ABG pH POC ABG pCO2 POC ABG pO2 ABG pO2 ABG Base Excess ABG Hemoglobin ABG Oxyhemoglobin ABG Sodium ABG Potassium ABG Chloride ABG Glucose Carboxyhemoglobin Sodium 135 L Potassium Chloride Carbon Dioxide 21 L BUN 62 H Creatinine 3.8 H Glucose 132 H POC Glucose 130 H Lactic Acid Calcium 5.6 L* Ionized Calcium 3.3 L Phosphorus Magnesium AST Alkaline Phosphatase C-Reactive Protein Total Protein Albumin Triglycerides Arterial Blood Glucose Arterial Blood Ionized Calcium Urine WBC (Auto) Urine Creatinine Crossmatch 12/28/20 12/28/20 12/28/20 05:36 07:08 07:28 WBC 27.2 H RBC 3.50 L Hgb 9.6 L Hct 30.8 L MCV MCHC 31 L RDW 16.1 H Plt Count 111 L Lymph % (Auto) Eos % (Auto) Lymph # (Auto) Eos # (Auto) Seg Neutrophils % Seg Neuts % (Manual) 95.0 H Lymphocytes % (Manual) Seg Neutrophils # Seg Neutrophils # Man 25.8 H Lymphocytes # (Manual) 0.0 L Monocytes # (Manual) 1.1 H PT INR APTT Fibrinogen ABG pH 7.200 L POC ABG pCO2 POC ABG pO2 67.2 L ABG pO2 ABG Base Excess ABG Hemoglobin 10.3 L ABG Oxyhemoglobin 89.6 L ABG Sodium 127.8 L ABG Potassium 5.1 H ABG Chloride ABG Glucose 132 H Carboxyhemoglobin 0.4 L Sodium Potassium Chloride Carbon Dioxide BUN Creatinine Glucose POC Glucose 128 H Lactic Acid Calcium Ionized Calcium Phosphorus Magnesium AST Alkaline Phosphatase C-Reactive Protein Total Protein Albumin Triglycerides Arterial Blood Glucose 132 H Arterial Blood Ionized Calcium 3.5 L Urine WBC (Auto) Urine Creatinine Crossmatch 06/09/21 06/09/21 06/09/21 07:28 11:37 13:25 WBC RBC Hgb Hct MCV MCHC RDW Plt Count Lymph % (Auto) Eos % (Auto) Lymph # (Auto) Eos # (Auto) Seg Neutrophils % Seg Neuts % (Manual) Lymphocytes % (Manual) Seg Neutrophils # Seg Neutrophils # Man Lymphocytes # (Manual) Monocytes # (Manual) PT INR APTT Fibrinogen ABG pH POC ABG pCO2 POC ABG pO2 ABG pO2 ABG Base Excess ABG Hemoglobin ABG Oxyhemoglobin ABG Sodium ABG Potassium ABG Chloride ABG Glucose Carboxyhemoglobin Sodium 131 L 133 L Potassium 5.9 H 5.1 H Chloride 97.1 L Carbon Dioxide 15 L 21 L BUN 70 H 77 H Creatinine 4.0 H 4.4 H Glucose 118 H 140 H POC Glucose 135 H Lactic Acid Calcium 6.3 L 6.3 L Ionized Calcium Phosphorus 7.10 H Magnesium AST 144 H Alkaline Phosphatase C-Reactive Protein Total Protein 4.8 L Albumin 1.3 L Triglycerides Arterial Blood Glucose Arterial Blood Ionized Calcium Urine WBC (Auto) Urine Creatinine Crossmatch 12/28/20 12/28/20 12/29/20 16:38 23:28 03:08 WBC RBC Hgb Hct MCV MCHC RDW Plt Count Lymph % (Auto) Eos % (Auto) Lymph # (Auto) Eos # (Auto) Seg Neutrophils % Seg Neuts % (Manual) Lymphocytes % (Manual) Seg Neutrophils # Seg Neutrophils # Man Lymphocytes # (Manual) Monocytes # (Manual) PT INR APTT Fibrinogen ABG pH 7.301 L POC ABG pCO2 POC ABG pO2 151.1 H ABG pO2 ABG Base Excess ABG Hemoglobin 8.7 L ABG Oxyhemoglobin 98.2 H ABG Sodium 123.4 L ABG Potassium ABG Chloride 97.0 L ABG Glucose 144 H Carboxyhemoglobin Sodium Potassium Chloride Carbon Dioxide BUN Creatinine Glucose POC Glucose 140 H 134 H Lactic Acid Calcium Ionized Calcium Phosphorus Magnesium AST Alkaline Phosphatase C-Reactive Protein Total Protein Albumin Triglycerides Arterial Blood Glucose 144 H Arterial Blood Ionized Calcium 3.4 L Urine WBC (Auto) Urine Creatinine Crossmatch 12/29/20 12/29/20 12/29/20 05:20 05:20 06:01 WBC 21.0 H RBC 2.89 L Hgb 8.1 L Hct 25.5 L MCV MCHC RDW 16.1 H Plt Count 124 L Lymph % (Auto) Eos % (Auto) Lymph # (Auto) Eos # (Auto) Seg Neutrophils % Seg Neuts % (Manual) Lymphocytes % (Manual) Seg Neutrophils # Seg Neutrophils # Man Lymphocytes # (Manual) Monocytes # (Manual) PT INR APTT Fibrinogen ABG pH POC ABG pCO2 POC ABG pO2 ABG pO2 ABG Base Excess ABG Hemoglobin ABG Oxyhemoglobin ABG Sodium ABG Potassium ABG Chloride ABG Glucose Carboxyhemoglobin Sodium 131 L Potassium Chloride 93.4 L Carbon Dioxide BUN 79 H Creatinine 4.7 H Glucose 122 H POC Glucose 108 H Lactic Acid Calcium 5.5 L* Ionized Calcium Phosphorus 5.70 H Magnesium 1.60 L AST Alkaline Phosphatase C-Reactive Protein Total Protein Albumin Triglycerides Arterial Blood Glucose Arterial Blood Ionized Calcium Urine WBC (Auto) Urine Creatinine Crossmatch 12/29/20 12/29/20 12/29/20 10:04 11:27 17:31 WBC RBC Hgb Hct MCV MCHC RDW Plt Count Lymph % (Auto) Eos % (Auto) Lymph # (Auto) Eos # (Auto) Seg Neutrophils % Seg Neuts % (Manual) Lymphocytes % (Manual) Seg Neutrophils # Seg Neutrophils # Man Lymphocytes # (Manual) Monocytes # (Manual) PT INR APTT Fibrinogen ABG pH POC ABG pCO2 POC ABG pO2 ABG pO2 ABG Base Excess ABG Hemoglobin ABG Oxyhemoglobin ABG Sodium ABG Potassium ABG Chloride ABG Glucose Carboxyhemoglobin Sodium Potassium Chloride Carbon Dioxide BUN Creatinine Glucose POC Glucose 107 H 112 H 110 H Lactic Acid Calcium Ionized Calcium Phosphorus Magnesium AST Alkaline Phosphatase C-Reactive Protein Total Protein Albumin Triglycerides Arterial Blood Glucose Arterial Blood Ionized Calcium Urine WBC (Auto) Urine Creatinine Crossmatch 12/30/20 12/30/20 12/30/20 03:31 08:06 17:39 WBC RBC Hgb Hct MCV MCHC RDW Plt Count Lymph % (Auto) Eos % (Auto) Lymph # (Auto) Eos # (Auto) Seg Neutrophils % Seg Neuts % (Manual) Lymphocytes % (Manual) Seg Neutrophils # Seg Neutrophils # Man Lymphocytes # (Manual) Monocytes # (Manual) PT INR APTT Fibrinogen ABG pH 7.261 L POC ABG pCO2 POC ABG pO2 123.1 H ABG pO2 ABG Base Excess ABG Hemoglobin 8.7 L ABG Oxyhemoglobin ABG Sodium 123.2 L ABG Potassium ABG Chloride 96.0 L ABG Glucose 112 H Carboxyhemoglobin Sodium 128 L Potassium Chloride 90.7 L Carbon Dioxide 21 L BUN 86 H Creatinine 4.9 H Glucose 107 H POC Glucose 134 H Lactic Acid Calcium 6.2 L Ionized Calcium Phosphorus 5.30 H Magnesium 1.50 L AST Alkaline Phosphatase C-Reactive Protein Total Protein Albumin Triglycerides Arterial Blood Glucose 112 H Arterial Blood Ionized Calcium 3.2 L Urine WBC (Auto) Urine Creatinine Crossmatch 12/30/20 12/31/20 12/31/20 22:45 02:14 04:40 WBC RBC Hgb Hct MCV MCHC RDW Plt Count Lymph % (Auto) Eos % (Auto) Lymph # (Auto) Eos # (Auto) Seg Neutrophils % Seg Neuts % (Manual) Lymphocytes % (Manual) Seg Neutrophils # Seg Neutrophils # Man Lymphocytes # (Manual) Monocytes # (Manual) PT INR APTT Fibrinogen ABG pH 7.267 L POC ABG pCO2 POC ABG pO2 ABG pO2 ABG Base Excess ABG Hemoglobin 8.0 L ABG Oxyhemoglobin 93.7 L ABG Sodium ABG Potassium ABG Chloride 95.0 L ABG Glucose 108 H Carboxyhemoglobin 1.7 H Sodium 126 L Potassium Chloride 90.3 L Carbon Dioxide 20 L BUN 70 H Creatinine 4.3 H Glucose 209 H POC Glucose 109 H Lactic Acid Calcium 6.6 L Ionized Calcium Phosphorus 4.70 H Magnesium 1.60 L AST Alkaline Phosphatase C-Reactive Protein Total Protein Albumin Triglycerides 157 H Arterial Blood Glucose 108 H Arterial Blood Ionized Calcium 3.7 L Urine WBC (Auto) Urine Creatinine Crossmatch 12/31/20 12/31/20 01/01/21 16:23 23:21 04:00 WBC 18.0 H RBC 2.75 L Hgb 7.7 L Hct 23.9 L MCV MCHC RDW 15.6 H Plt Count Lymph % (Auto) Eos % (Auto) Lymph # (Auto) Eos # (Auto) Seg Neutrophils % Seg Neuts % (Manual) 91.0 H Lymphocytes % (Manual) 6.0 L Seg Neutrophils # Seg Neutrophils # Man 16.4 H Lymphocytes # (Manual) 1.1 L Monocytes # (Manual) PT INR APTT Fibrinogen ABG pH 7.264 L POC ABG pCO2 POC ABG pO2 74.8 L ABG pO2 ABG Base Excess ABG Hemoglobin 7.1 L ABG Oxyhemoglobin 92.1 L ABG Sodium 124.9 L ABG Potassium ABG Chloride 95.0 L ABG Glucose 111 H Carboxyhemoglobin 1.7 H Sodium Potassium Chloride Carbon Dioxide BUN Creatinine Glucose POC Glucose 125 H Lactic Acid Calcium Ionized Calcium Phosphorus Magnesium AST Alkaline Phosphatase C-Reactive Protein Total Protein Albumin Triglycerides Arterial Blood Glucose 111 H Arterial Blood Ionized Calcium 4.0 L Urine WBC (Auto) Urine Creatinine Crossmatch 01/01/21 01/01/21 01/01/21 05:50 13:41 15:55 WBC RBC Hgb Hct MCV MCHC RDW Plt Count Lymph % (Auto) Eos % (Auto) Lymph # (Auto) Eos # (Auto) Seg Neutrophils % Seg Neuts % (Manual) Lymphocytes % (Manual) Seg Neutrophils # Seg Neutrophils # Man Lymphocytes # (Manual) Monocytes # (Manual) PT INR APTT Fibrinogen ABG pH 7.148 L 7.207 L POC ABG pCO2 53.1 H POC ABG pO2 57.3 L 138.4 H ABG pO2 ABG Base Excess ABG Hemoglobin 9.0 L 8.3 L ABG Oxyhemoglobin 83.2 L ABG Sodium 126.2 L 124.5 L ABG Potassium ABG Chloride 95.0 L 95.0 L ABG Glucose 96 H 120 H Carboxyhemoglobin Sodium 131 L Potassium Chloride 93.3 L Carbon Dioxide 21 L BUN 67 H Creatinine 4.2 H Glucose POC Glucose Lactic Acid Calcium 7.1 L Ionized Calcium Phosphorus Magnesium AST 60 H Alkaline Phosphatase C-Reactive Protein Total Protein 4.8 L Albumin 1.4 L Triglycerides Arterial Blood Glucose 96 H 120 H Arterial Blood Ionized Calcium 4.1 L 3.9 L Urine WBC (Auto) Urine Creatinine Crossmatch 01/01/21 01/01/21 01/02/21 17:09 23:24 03:47 WBC RBC Hgb Hct MCV MCHC RDW Plt Count Lymph % (Auto) Eos % (Auto) Lymph # (Auto) Eos # (Auto) Seg Neutrophils % Seg Neuts % (Manual) Lymphocytes % (Manual) Seg Neutrophils # Seg Neutrophils # Man Lymphocytes # (Manual) Monocytes # (Manual) PT INR APTT Fibrinogen ABG pH 7.276 L POC ABG pCO2 POC ABG pO2 173.6 H ABG pO2 ABG Base Excess ABG Hemoglobin 7 L ABG Oxyhemoglobin ABG Sodium 122.4 L ABG Potassium ABG Chloride 94.0 L ABG Glucose 118 H Carboxyhemoglobin Sodium Potassium Chloride Carbon Dioxide BUN Creatinine Glucose POC Glucose 124 H 119 H Lactic Acid Calcium Ionized Calcium Phosphorus Magnesium AST Alkaline Phosphatase C-Reactive Protein Total Protein Albumin Triglycerides Arterial Blood Glucose 118 H Arterial Blood Ionized Calcium 4.0 L Urine WBC (Auto) Urine Creatinine Crossmatch 01/02/21 01/02/21 01/02/21 05:33 08:00 08:00 WBC 19.7 H RBC 2.53 L Hgb 7.1 L Hct 22.0 L MCV MCHC RDW 16.4 H Plt Count Lymph % (Auto) Eos % (Auto) Lymph # (Auto) Eos # (Auto) Seg Neutrophils % Seg Neuts % (Manual) Lymphocytes % (Manual) Seg Neutrophils # Seg Neutrophils # Man Lymphocytes # (Manual) Monocytes # (Manual) PT INR APTT Fibrinogen ABG pH POC ABG pCO2 POC ABG pO2 ABG pO2 ABG Base Excess ABG Hemoglobin ABG Oxyhemoglobin ABG Sodium ABG Potassium ABG Chloride ABG Glucose Carboxyhemoglobin Sodium 127 L Potassium Chloride 89.3 L Carbon Dioxide 19 L BUN 82 H Creatinine 5.0 H Glucose 103 H POC Glucose 107 H Lactic Acid Calcium 7.8 L Ionized Calcium Phosphorus 6.40 H Magnesium AST 47 H Alkaline Phosphatase C-Reactive Protein Total Protein 5.0 L Albumin 1.6 L Triglycerides Arterial Blood Glucose Arterial Blood Ionized Calcium Urine WBC (Auto) Urine Creatinine Crossmatch 01/02/21 01/03/21 01/03/21 17:25 07:56 09:47 WBC 17.7 H RBC 2.19 L Hgb 6.2 L Hct 18.5 L* MCV MCHC RDW 16.1 H Plt Count Lymph % (Auto) Eos % (Auto) Lymph # (Auto) Eos # (Auto) Seg Neutrophils % Seg Neuts % (Manual) Lymphocytes % (Manual) Seg Neutrophils # Seg Neutrophils # Man Lymphocytes # (Manual) Monocytes # (Manual) PT INR APTT Fibrinogen ABG pH POC ABG pCO2 POC ABG pO2 ABG pO2 ABG Base Excess ABG Hemoglobin ABG Oxyhemoglobin ABG Sodium ABG Potassium ABG Chloride ABG Glucose Carboxyhemoglobin Sodium 130 L Potassium 3.5 L Chloride 90.3 L Carbon Dioxide BUN 68 H Creatinine 3.9 H Glucose 103 H POC Glucose 116 H Lactic Acid Calcium 8.0 L Ionized Calcium Phosphorus 4.80 H D Magnesium AST Alkaline Phosphatase C-Reactive Protein Total Protein Albumin Triglycerides Arterial Blood Glucose Arterial Blood Ionized Calcium Urine WBC (Auto) Urine Creatinine Crossmatch 01/03/21 01/03/21 01/04/21 11:00 19:00 03:12 WBC 17.0 H RBC 2.51 L Hgb 7.1 L Hct 21.5 L MCV MCHC RDW 16.6 H Plt Count Lymph % (Auto) Eos % (Auto) Lymph # (Auto) Eos # (Auto) Seg Neutrophils % Seg Neuts % (Manual) Lymphocytes % (Manual) Seg Neutrophils # Seg Neutrophils # Man Lymphocytes # (Manual) Monocytes # (Manual) PT INR APTT Fibrinogen ABG pH 7.463 H POC ABG pCO2 POC ABG pO2 72.2 L ABG pO2 ABG Base Excess ABG Hemoglobin 6.2 L ABG Oxyhemoglobin 91.8 L ABG Sodium 128.4 L ABG Potassium 3.3 L ABG Chloride 96.0 L ABG Glucose 112 H Carboxyhemoglobin Sodium Potassium Chloride Carbon Dioxide BUN Creatinine Glucose POC Glucose Lactic Acid Calcium Ionized Calcium Phosphorus Magnesium AST Alkaline Phosphatase C-Reactive Protein Total Protein Albumin Triglycerides Arterial Blood Glucose 112 H Arterial Blood Ionized Calcium 4.3 L Urine WBC (Auto) Urine Creatinine Crossmatch See Detail 01/04/21 01/04/21 01/04/21 05:16 06:20 06:20 WBC 18.5 H RBC 2.53 L Hgb 7.4 L Hct 21.9 L MCV MCHC RDW 15.8 H Plt Count Lymph % (Auto) Eos % (Auto) Lymph # (Auto) Eos # (Auto) Seg Neutrophils % Seg Neuts % (Manual) Lymphocytes % (Manual) Seg Neutrophils # Seg Neutrophils # Man Lymphocytes # (Manual) Monocytes # (Manual) PT INR APTT Fibrinogen ABG pH POC ABG pCO2 POC ABG pO2 ABG pO2 ABG Base Excess ABG Hemoglobin ABG Oxyhemoglobin ABG Sodium ABG Potassium ABG Chloride ABG Glucose Carboxyhemoglobin Sodium 135 L Potassium Chloride 95.2 L Carbon Dioxide BUN 56 H Creatinine 3.2 H Glucose 109 H POC Glucose 123 H Lactic Acid Calcium 7.6 L Ionized Calcium Phosphorus Magnesium AST Alkaline Phosphatase C-Reactive Protein Total Protein Albumin Triglycerides Arterial Blood Glucose Arterial Blood Ionized Calcium Urine WBC (Auto) Urine Creatinine Crossmatch 01/05/21 01/05/21 01/05/21 03:50 07:22 07:22 WBC 23.8 H RBC 2.93 L Hgb 8.2 L Hct 25.1 L MCV MCHC RDW 16.5 H Plt Count Lymph % (Auto) Eos % (Auto) Lymph # (Auto) Eos # (Auto) Seg Neutrophils % Seg Neuts % (Manual) Lymphocytes % (Manual) Seg Neutrophils # Seg Neutrophils # Man Lymphocytes # (Manual) Monocytes # (Manual) PT INR APTT Fibrinogen ABG pH POC ABG pCO2 POC ABG pO2 ABG pO2 136.8 H ABG Base Excess -2.3 L ABG Hemoglobin 6.9 L ABG Oxyhemoglobin ABG Sodium ABG Potassium ABG Chloride ABG Glucose Carboxyhemoglobin Sodium 134 L Potassium Chloride 93.3 L Carbon Dioxide BUN 77 H Creatinine 4.2 H Glucose 105 H POC Glucose Lactic Acid Calcium Ionized Calcium Phosphorus 4.90 H D Magnesium AST Alkaline Phosphatase C-Reactive Protein Total Protein Albumin Triglycerides Arterial Blood Glucose Arterial Blood Ionized Calcium Urine WBC (Auto) Urine Creatinine Crossmatch 01/05/21 01/05/21 01/05/21 11:02 14:06 15:37 WBC RBC Hgb Hct MCV MCHC RDW Plt Count Lymph % (Auto) Eos % (Auto) Lymph # (Auto) Eos # (Auto) Seg Neutrophils % Seg Neuts % (Manual) Lymphocytes % (Manual) Seg Neutrophils # Seg Neutrophils # Man Lymphocytes # (Manual) Monocytes # (Manual) PT INR APTT Fibrinogen ABG pH POC ABG pCO2 POC ABG pO2 332.3 H ABG pO2 ABG Base Excess ABG Hemoglobin 7.7 L ABG Oxyhemoglobin 98.7 H ABG Sodium 131.0 L ABG Potassium 3.3 L ABG Chloride 97.0 L ABG Glucose 118 H Carboxyhemoglobin Sodium Potassium Chloride Carbon Dioxide BUN Creatinine Glucose POC Glucose 118 H 111 H Lactic Acid Calcium Ionized Calcium Phosphorus Magnesium AST Alkaline Phosphatase C-Reactive Protein Total Protein Albumin Triglycerides Arterial Blood Glucose 118 H Arterial Blood Ionized Calcium 4.4 L Urine WBC (Auto) Urine Creatinine Crossmatch 01/05/21 01/06/21 01/06/21 23:18 04:00 04:20 WBC RBC Hgb Hct MCV MCHC RDW Plt Count Lymph % (Auto) Eos % (Auto) Lymph # (Auto) Eos # (Auto) Seg Neutrophils % Seg Neuts % (Manual) Lymphocytes % (Manual) Seg Neutrophils # Seg Neutrophils # Man Lymphocytes # (Manual) Monocytes # (Manual) PT INR APTT Fibrinogen ABG pH POC ABG pCO2 POC ABG pO2 230.5 H ABG pO2 ABG Base Excess ABG Hemoglobin 7.9 L ABG Oxyhemoglobin 98.5 H ABG Sodium 129.4 L ABG Potassium ABG Chloride 97.0 L ABG Glucose 117 H Carboxyhemoglobin Sodium 133 L Potassium Chloride 94.4 L Carbon Dioxide BUN 62 H Creatinine 3.6 H Glucose 110 H POC Glucose 110 H Lactic Acid Calcium 7.8 L Ionized Calcium Phosphorus Magnesium AST Alkaline Phosphatase C-Reactive Protein Total Protein Albumin Triglycerides Arterial Blood Glucose 117 H Arterial Blood Ionized Calcium 4.5 L Urine WBC (Auto) Urine Creatinine Crossmatch 01/06/21 01/06/21 01/06/21 05:28 09:00 11:00 WBC 15.2 H RBC 2.18 L Hgb 6.5 L Hct 21.8 L MCV 100 H MCHC 30 L RDW 18.5 H Plt Count Lymph % (Auto) Eos % (Auto) Lymph # (Auto) Eos # (Auto) Seg Neutrophils % Seg Neuts % (Manual) Lymphocytes % (Manual) Seg Neutrophils # Seg Neutrophils # Man Lymphocytes # (Manual) Monocytes # (Manual) PT INR APTT Fibrinogen ABG pH POC ABG pCO2 POC ABG pO2 ABG pO2 ABG Base Excess ABG Hemoglobin ABG Oxyhemoglobin ABG Sodium ABG Potassium ABG Chloride ABG Glucose Carboxyhemoglobin Sodium Potassium Chloride Carbon Dioxide BUN Creatinine Glucose POC Glucose 109 H Lactic Acid Calcium Ionized Calcium Phosphorus Magnesium AST Alkaline Phosphatase C-Reactive Protein Total Protein Albumin Triglycerides Arterial Blood Glucose Arterial Blood Ionized Calcium Urine WBC (Auto) Urine Creatinine Crossmatch See Detail 01/06/21 01/06/21 01/07/21 11:32 23:44 03:10 WBC 15.3 H RBC 2.30 L Hgb 6.7 L Hct 20.1 L MCV MCHC RDW 16.6 H Plt Count Lymph % (Auto) Eos % (Auto) Lymph # (Auto) Eos # (Auto) Seg Neutrophils % Seg Neuts % (Manual) Lymphocytes % (Manual) Seg Neutrophils # Seg Neutrophils # Man Lymphocytes # (Manual) Monocytes # (Manual) PT INR APTT Fibrinogen ABG pH POC ABG pCO2 POC ABG pO2 ABG pO2 ABG Base Excess ABG Hemoglobin ABG Oxyhemoglobin ABG Sodium ABG Potassium ABG Chloride ABG Glucose Carboxyhemoglobin Sodium Potassium Chloride Carbon Dioxide BUN Creatinine Glucose POC Glucose 113 H 118 H Lactic Acid Calcium Ionized Calcium Phosphorus Magnesium AST Alkaline Phosphatase C-Reactive Protein Total Protein Albumin Triglycerides Arterial Blood Glucose Arterial Blood Ionized Calcium Urine WBC (Auto) Urine Creatinine Crossmatch 01/07/21 01/07/21 01/07/21 03:10 04:17 05:06 WBC RBC Hgb Hct MCV MCHC RDW Plt Count Lymph % (Auto) Eos % (Auto) Lymph # (Auto) Eos # (Auto) Seg Neutrophils % Seg Neuts % (Manual) Lymphocytes % (Manual) Seg Neutrophils # Seg Neutrophils # Man Lymphocytes # (Manual) Monocytes # (Manual) PT INR APTT Fibrinogen ABG pH 7.272 L POC ABG pCO2 50.1 H POC ABG pO2 ABG pO2 ABG Base Excess ABG Hemoglobin 8.4 L ABG Oxyhemoglobin ABG Sodium 128.6 L ABG Potassium ABG Chloride 95.0 L ABG Glucose 109 H Carboxyhemoglobin Sodium 133 L Potassium Chloride 93.6 L Carbon Dioxide BUN 85 H Creatinine 3.9 H Glucose 112 H POC Glucose 106 H Lactic Acid Calcium Ionized Calcium Phosphorus 4.70 H D Magnesium AST Alkaline Phosphatase C-Reactive Protein Total Protein Albumin Triglycerides Arterial Blood Glucose 109 H Arterial Blood Ionized Calcium Urine WBC (Auto) Urine Creatinine Crossmatch 01/07/21 01/07/21 01/07/21 14:05 16:00 23:25 WBC RBC Hgb 8.1 L Hct 24.2 L MCV MCHC RDW Plt Count Lymph % (Auto) Eos % (Auto) Lymph # (Auto) Eos # (Auto) Seg Neutrophils % Seg Neuts % (Manual) Lymphocytes % (Manual) Seg Neutrophils # Seg Neutrophils # Man Lymphocytes # (Manual) Monocytes # (Manual) PT INR APTT Fibrinogen ABG pH POC ABG pCO2 POC ABG pO2 ABG pO2 ABG Base Excess ABG Hemoglobin 7.2 L ABG Oxyhemoglobin ABG Sodium 127.3 L ABG Potassium ABG Chloride 96.0 L ABG Glucose 98 H Carboxyhemoglobin Sodium Potassium Chloride Carbon Dioxide BUN Creatinine Glucose POC Glucose 106 H Lactic Acid Calcium Ionized Calcium Phosphorus Magnesium AST Alkaline Phosphatase C-Reactive Protein Total Protein Albumin Triglycerides Arterial Blood Glucose 98 H Arterial Blood Ionized Calcium Urine WBC (Auto) Urine Creatinine Crossmatch 01/08/21 01/08/2101/08/21 03:22 05:30 23:22 WBC RBC Hgb Hct MCV MCHC RDW Plt Count Lymph % (Auto) Eos % (Auto) Lymph # (Auto) Eos # (Auto) Seg Neutrophils % Seg Neuts % (Manual) Lymphocytes % (Manual) Seg Neutrophils # Seg Neutrophils # Man Lymphocytes # (Manual) Monocytes # (Manual) PT INR APTT Fibrinogen ABG pH POC ABG pCO2 POC ABG pO2 71.3 L ABG pO2 ABG Base Excess ABG Hemoglobin 8.7 L ABG Oxyhemoglobin 92.2 L ABG Sodium 125.9 L ABG Potassium ABG Chloride 96.0 L ABG Glucose 124 H Carboxyhemoglobin Sodium Potassium Chloride Carbon Dioxide BUN Creatinine Glucose POC Glucose 118 H 110 H Lactic Acid Calcium Ionized Calcium Phosphorus Magnesium AST Alkaline Phosphatase C-Reactive Protein Total Protein Albumin Triglycerides Arterial Blood Glucose 124 H Arterial Blood Ionized Calcium Urine WBC (Auto) Urine Creatinine Crossmatch 01/08/21 01/08/21 01/09/21 Unknown Unknown 08:45 WBC 15.2 H RBC 2.62 L Hgb 7.6 L Hct 22.7 L MCV MCHC RDW 16.7 H Plt Count Lymph % (Auto) Eos % (Auto) Lymph # (Auto) Eos # (Auto) Seg Neutrophils % Seg Neuts % (Manual) 95.0 H Lymphocytes % (Manual) 3.0 L Seg Neutrophils # Seg Neutrophils # Man 14.4 H Lymphocytes # (Manual) 0.5 L Monocytes # (Manual) PT INR APTT Fibrinogen ABG pH POC ABG pCO2 POC ABG pO2 ABG pO2 ABG Base Excess ABG Hemoglobin ABG Oxyhemoglobin ABG Sodium ABG Potassium ABG Chloride ABG Glucose Carboxyhemoglobin Sodium 129 L 129 L Potassium Chloride 91.2 L 92.7 L Carbon Dioxide 21 L 19 L BUN 91 H 105 H Creatinine 4.0 H 4.4 H Glucose 115 H 107 H POC Glucose Lactic Acid Calcium Ionized Calcium Phosphorus 5.00 H Magnesium AST Alkaline Phosphatase C-Reactive Protein Total Protein 5.3 L Albumin 1.6 L Triglycerides 166 H Arterial Blood Glucose Arterial Blood Ionized Calcium Urine WBC (Auto) Urine Creatinine Crossmatch 01/09/21 01/09/21 01/10/21 10:10 23:51 04:00 WBC 14.1 H RBC 2.50 L Hgb 7.2 L Hct 21.6 L MCV MCHC RDW 16.5 H Plt Count Lymph % (Auto) Eos % (Auto) Lymph # (Auto) Eos # (Auto) Seg Neutrophils % Seg Neuts % (Manual) 92.0 H Lymphocytes % (Manual) 2.0 L Seg Neutrophils # Seg Neutrophils # Man 13.0 H Lymphocytes # (Manual) 0.3 L Monocytes # (Manual) PT INR APTT Fibrinogen ABG pH 7.273 L POC ABG pCO2 POC ABG pO2 ABG pO2 ABG Base Excess ABG Hemoglobin 8.7 L ABG Oxyhemoglobin ABG Sodium 126.2 L ABG Potassium 4.8 H ABG Chloride 96.0 L ABG Glucose 160 H Carboxyhemoglobin Sodium Potassium Chloride Carbon Dioxide BUN Creatinine Glucose POC Glucose 154 H Lactic Acid Calcium Ionized Calcium Phosphorus Magnesium AST Alkaline Phosphatase C-Reactive Protein Total Protein Albumin Triglycerides Arterial Blood Glucose 160 H Arterial Blood Ionized Calcium Urine WBC (Auto) Urine Creatinine Crossmatch 01/10/21 01/10/21 01/10/21 04:01 04:01 04:01 WBC 12.6 H RBC 2.89 L Hgb 8.1 L Hct 24.9 L MCV MCHC RDW 16.6 H Plt Count Lymph % (Auto) Eos % (Auto) Lymph # (Auto) Eos # (Auto) Seg Neutrophils % Seg Neuts % (Manual) 95.0 H Lymphocytes % (Manual) 3.0 L Seg Neutrophils # Seg Neutrophils # Man 12.0 H Lymphocytes # (Manual) 0.4 L Monocytes # (Manual) PT 15.4 H INR 1.17 H APTT 40.2 H Fibrinogen 817 H ABG pH POC ABG pCO2 POC ABG pO2 ABG pO2 ABG Base Excess ABG Hemoglobin ABG Oxyhemoglobin ABG Sodium ABG Potassium ABG Chloride ABG Glucose Carboxyhemoglobin Sodium 128 L Potassium Chloride 90.4 L Carbon Dioxide 19 L BUN 113 H Creatinine 4.5 H Glucose 162 H POC Glucose Lactic Acid Calcium Ionized Calcium Phosphorus 5.70 H Magnesium AST Alkaline Phosphatase C-Reactive Protein Total Protein 6.2 L Albumin 2.1 L Triglycerides Arterial Blood Glucose Arterial Blood Ionized Calcium Urine WBC (Auto) Urine Creatinine Crossmatch 01/10/21 01/10/21 01/11/21 05:31 11:45 04:00 WBC RBC Hgb Hct MCV MCHC RDW Plt Count Lymph % (Auto) Eos % (Auto) Lymph # (Auto) Eos # (Auto) Seg Neutrophils % Seg Neuts % (Manual) Lymphocytes % (Manual) Seg Neutrophils # Seg Neutrophils # Man Lymphocytes # (Manual) Monocytes # (Manual) PT INR APTT Fibrinogen ABG pH 7.311 L POC ABG pCO2 49.2 H POC ABG pO2 ABG pO2 ABG Base Excess ABG Hemoglobin 9.4 L ABG Oxyhemoglobin ABG Sodium 130.3 L ABG Potassium ABG Chloride 96.0 L ABG Glucose 104 H Carboxyhemoglobin Sodium Potassium Chloride Carbon Dioxide BUN Creatinine Glucose POC Glucose 150 H 145 H Lactic Acid Calcium Ionized Calcium Phosphorus Magnesium AST Alkaline Phosphatase C-Reactive Protein Total Protein Albumin Triglycerides Arterial Blood Glucose 104 H Arterial Blood Ionized Calcium Urine WBC (Auto) Urine Creatinine Crossmatch 01/11/21 01/11/21 01/12/21 04:45 17:29 05:51 WBC RBC Hgb Hct MCV MCHC RDW Plt Count Lymph % (Auto) Eos % (Auto) Lymph # (Auto) Eos # (Auto) Seg Neutrophils % Seg Neuts % (Manual) Lymphocytes % (Manual) Seg Neutrophils # Seg Neutrophils # Man Lymphocytes # (Manual) Monocytes # (Manual) PT INR APTT Fibrinogen ABG pH POC ABG pCO2 POC ABG pO2 ABG pO2 ABG Base Excess ABG Hemoglobin ABG Oxyhemoglobin ABG Sodium ABG Potassium ABG Chloride ABG Glucose Carboxyhemoglobin Sodium 134 L Potassium 3.5 L D Chloride 95.5 L Carbon Dioxide BUN 88 H Creatinine 3.5 H Glucose 103 H POC Glucose 109 H 114 H Lactic Acid Calcium Ionized Calcium Phosphorus Magnesium AST Alkaline Phosphatase C-Reactive Protein Total Protein Albumin Triglycerides Arterial Blood Glucose Arterial Blood Ionized Calcium Urine WBC (Auto) Urine Creatinine Crossmatch 01/12/21 01/12/21 01/12/21 10:00 10:00 11:56 WBC RBC Hgb Hct MCV MCHC RDW Plt Count Lymph % (Auto) Eos % (Auto) Lymph # (Auto) Eos # (Auto) Seg Neutrophils % Seg Neuts % (Manual) Lymphocytes % (Manual) Seg Neutrophils # Seg Neutrophils # Man Lymphocytes # (Manual) Monocytes # (Manual) PT INR APTT Fibrinogen ABG pH POC ABG pCO2 POC ABG pO2 ABG pO2 ABG Base Excess ABG Hemoglobin ABG Oxyhemoglobin ABG Sodium ABG Potassium ABG Chloride ABG Glucose Carboxyhemoglobin Sodium 136 L Potassium Chloride 95.2 L Carbon Dioxide BUN 102 H Creatinine 3.6 H Glucose 106 H POC Glucose 113 H Lactic Acid Calcium Ionized Calcium Phosphorus 4.90 H Magnesium AST Alkaline Phosphatase C-Reactive Protein Total Protein Albumin Triglycerides 153 H Arterial Blood Glucose Arterial Blood Ionized Calcium Urine WBC (Auto) Urine Creatinine Crossmatch 01/12/21 01/12/21 01/13/21 17:43 23:31 03:14 WBC RBC Hgb Hct MCV MCHC RDW Plt Count Lymph % (Auto) Eos % (Auto) Lymph # (Auto) Eos # (Auto) Seg Neutrophils % Seg Neuts % (Manual) Lymphocytes % (Manual) Seg Neutrophils # Seg Neutrophils # Man Lymphocytes # (Manual) Monocytes # (Manual) PT INR APTT Fibrinogen ABG pH 7.484 H POC ABG pCO2 POC ABG pO2 ABG pO2 ABG Base Excess ABG Hemoglobin 8.4 L ABG Oxyhemoglobin ABG Sodium 134.4 L ABG Potassium 3.1 L ABG Chloride ABG Glucose 117 H Carboxyhemoglobin Sodium Potassium Chloride Carbon Dioxide BUN Creatinine Glucose POC Glucose 113 H 108 H Lactic Acid Calcium Ionized Calcium Phosphorus Magnesium AST Alkaline Phosphatase C-Reactive Protein Total Protein Albumin Triglycerides Arterial Blood Glucose 117 H Arterial Blood Ionized Calcium 4.5 L Urine WBC (Auto) Urine Creatinine Crossmatch 01/13/21 01/13/21 01/13/21 04:56 05:00 05:00 WBC RBC 2.87 L Hgb 8.0 L Hct 24.4 L MCV MCHC RDW 17.2 H Plt Count Lymph % (Auto) Eos % (Auto) Lymph # (Auto) Eos # (Auto) Seg Neutrophils % Seg Neuts % (Manual) Lymphocytes % (Manual) Seg Neutrophils # Seg Neutrophils # Man Lymphocytes # (Manual) Monocytes # (Manual) PT INR APTT Fibrinogen ABG pH POC ABG pCO2 POC ABG pO2 ABG pO2 ABG Base Excess ABG Hemoglobin ABG Oxyhemoglobin ABG Sodium ABG Potassium ABG Chloride ABG Glucose Carboxyhemoglobin Sodium Potassium 3.0 L Chloride 97.6 L Carbon Dioxide BUN 69 H Creatinine 2.9 H Glucose 114 H POC Glucose 110 H Lactic Acid Calcium 8.0 L Ionized Calcium Phosphorus Magnesium AST Alkaline Phosphatase C-Reactive Protein Total Protein Albumin Triglycerides Arterial Blood Glucose Arterial Blood Ionized Calcium Urine WBC (Auto) Urine Creatinine Crossmatch 01/13/21 01/14/21 01/14/21 12:09 05:00 05:00 WBC 12.4 H RBC 2.72 L Hgb 7.7 L Hct 23.3 L MCV MCHC RDW 17.3 H Plt Count Lymph % (Auto) 6.5 L Eos % (Auto) 7.7 H Lymph # (Auto) 0.8 L Eos # (Auto) 1.0 H Seg Neutrophils % 82.7 H Seg Neuts % (Manual) Lymphocytes % (Manual) Seg Neutrophils # 10.2 H Seg Neutrophils # Man Lymphocytes # (Manual) Monocytes # (Manual) PT INR APTT Fibrinogen ABG pH POC ABG pCO2 POC ABG pO2 ABG pO2 ABG Base Excess ABG Hemoglobin ABG Oxyhemoglobin ABG Sodium ABG Potassium ABG Chloride ABG Glucose Carboxyhemoglobin Sodium Potassium 3.2 L Chloride Carbon Dioxide BUN 79 H Creatinine 3.1 H Glucose POC Glucose 111 H Lactic Acid Calcium Ionized Calcium Phosphorus Magnesium AST Alkaline Phosphatase C-Reactive Protein Total Protein Albumin Triglycerides Arterial Blood Glucose Arterial Blood Ionized Calcium Urine WBC (Auto) Urine Creatinine Crossmatch 01/16/21 01/16/21 01/16/21 04:30 04:30 16:00 WBC RBC 2.62 L Hgb 7.6 L Hct 22.6 L MCV MCHC RDW 17.3 H Plt Count Lymph % (Auto) Eos % (Auto) Lymph # (Auto) Eos # (Auto) Seg Neutrophils % Seg Neuts % (Manual) Lymphocytes % (Manual) Seg Neutrophils # Seg Neutrophils # Man Lymphocytes # (Manual) Monocytes # (Manual) PT INR APTT Fibrinogen ABG pH POC ABG pCO2 POC ABG pO2 ABG pO2 ABG Base Excess ABG Hemoglobin ABG Oxyhemoglobin ABG Sodium ABG Potassium ABG Chloride ABG Glucose Carboxyhemoglobin Sodium 146 H Potassium 2.9 L* 3.0 L Chloride Carbon Dioxide BUN 58 H Creatinine 2.4 H Glucose 101 H POC Glucose Lactic Acid Calcium Ionized Calcium Phosphorus Magnesium AST Alkaline Phosphatase C-Reactive Protein Total Protein Albumin 2.1 L Triglycerides Arterial Blood Glucose Arterial Blood Ionized Calcium Urine WBC (Auto) Urine Creatinine Crossmatch 01/16/21 01/17/21 01/17/21 Unknown 04:30 04:30 WBC RBC 2.80 L Hgb 7.9 L Hct 24.1 L MCV MCHC RDW 17.1 H Plt Count Lymph % (Auto) Eos % (Auto) Lymph # (Auto) Eos # (Auto) Seg Neutrophils % Seg Neuts % (Manual) Lymphocytes % (Manual) Seg Neutrophils # Seg Neutrophils # Man Lymphocytes # (Manual) Monocytes # (Manual) PT INR APTT Fibrinogen ABG pH POC ABG pCO2 POC ABG pO2 ABG pO2 ABG Base Excess ABG Hemoglobin ABG Oxyhemoglobin ABG Sodium ABG Potassium ABG Chloride ABG Glucose Carboxyhemoglobin Sodium 151 H Potassium 2.8 L* Chloride 108.0 H Carbon Dioxide BUN 58 H Creatinine 2.2 H Glucose 103 H POC Glucose Lactic Acid Calcium 8.0 L Ionized Calcium Phosphorus Magnesium 1.40 L AST Alkaline Phosphatase C-Reactive Protein Total Protein Albumin Triglycerides 216 H Arterial Blood Glucose Arterial Blood Ionized Calcium Urine WBC (Auto) > 182.0 H Urine Creatinine Crossmatch 01/17/21 01/17/21 01/18/21 11:24 23:00 04:15 WBC RBC Hgb Hct MCV MCHC RDW Plt Count Lymph % (Auto) Eos % (Auto) Lymph # (Auto) Eos # (Auto) Seg Neutrophils % Seg Neuts % (Manual) Lymphocytes % (Manual) Seg Neutrophils # Seg Neutrophils # Man Lymphocytes # (Manual) Monocytes # (Manual) PT INR APTT Fibrinogen ABG pH POC ABG pCO2 POC ABG pO2 ABG pO2 ABG Base Excess ABG Hemoglobin ABG Oxyhemoglobin ABG Sodium ABG Potassium ABG Chloride ABG Glucose Carboxyhemoglobin Sodium 153 H Potassium 3.3 L 3.3 L Chloride 113.1 H Carbon Dioxide BUN 55 H Creatinine 1.9 H Glucose POC Glucose 110 H Lactic Acid Calcium 7.4 L Ionized Calcium Phosphorus Magnesium AST Alkaline Phosphatase C-Reactive Protein Total Protein Albumin Triglycerides Arterial Blood Glucose Arterial Blood Ionized Calcium Urine WBC (Auto) Urine Creatinine Crossmatch 01/18/21 01/18/21 01/19/21 10:37 21:00 05:00 WBC RBC 2.64 L Hgb 7.8 L Hct 22.7 L MCV MCHC RDW 16.8 H Plt Count Lymph % (Auto) Eos % (Auto) Lymph # (Auto) Eos # (Auto) Seg Neutrophils % Seg Neuts % (Manual) Lymphocytes % (Manual) Seg Neutrophils # Seg Neutrophils # Man Lymphocytes # (Manual) Monocytes # (Manual) PT INR APTT Fibrinogen ABG pH 7.512 H POC ABG pCO2 POC ABG pO2 47.8 L ABG pO2 ABG Base Excess ABG Hemoglobin 8.9 L ABG Oxyhemoglobin 83.3 L ABG Sodium 151.5 H ABG Potassium 2.9 L ABG Chloride 117.0 H ABG Glucose 111 H Carboxyhemoglobin Sodium Potassium 3.4 L Chloride Carbon Dioxide BUN Creatinine Glucose POC Glucose Lactic Acid Calcium Ionized Calcium Phosphorus Magnesium AST Alkaline Phosphatase C-Reactive Protein Total Protein Albumin Triglycerides Arterial Blood Glucose 111 H Arterial Blood Ionized Calcium 4.3 L Urine WBC (Auto) Urine Creatinine Crossmatch 01/19/21 01/19/21 01/20/21 07:39 07:39 07:25 WBC RBC 2.82 L Hgb 8.2 L Hct 24.6 L MCV MCHC RDW 16.8 H Plt Count Lymph % (Auto) Eos % (Auto) Lymph # (Auto) Eos # (Auto) Seg Neutrophils % Seg Neuts % (Manual) Lymphocytes % (Manual) Seg Neutrophils # Seg Neutrophils # Man Lymphocytes # (Manual) Monocytes # (Manual) PT INR APTT Fibrinogen ABG pH POC ABG pCO2 POC ABG pO2 ABG pO2 ABG Base Excess ABG Hemoglobin ABG Oxyhemoglobin ABG Sodium ABG Potassium ABG Chloride ABG Glucose Carboxyhemoglobin Sodium 156 H Potassium 3.2 L Chloride 115.4 H Carbon Dioxide BUN 50 H Creatinine 1.6 H Glucose 108 H POC Glucose Lactic Acid Calcium 8.1 L Ionized Calcium Phosphorus Magnesium 1.50 L AST Alkaline Phosphatase C-Reactive Protein Total Protein Albumin Triglycerides Arterial Blood Glucose Arterial Blood Ionized Calcium Urine WBC (Auto) 30.0 H Urine Creatinine Crossmatch 01/20/21 01/20/21 01/20/21 07:25 07:25 23:20 WBC RBC 2.94 L Hgb 8.4 L Hct 25.9 L MCV MCHC RDW 17.2 H Plt Count Lymph % (Auto) Eos % (Auto) Lymph # (Auto) Eos # (Auto) Seg Neutrophils % Seg Neuts % (Manual) Lymphocytes % (Manual) Seg Neutrophils # Seg Neutrophils # Man Lymphocytes # (Manual) Monocytes # (Manual) PT INR APTT Fibrinogen ABG pH POC ABG pCO2 POC ABG pO2 ABG pO2 ABG Base Excess ABG Hemoglobin ABG Oxyhemoglobin ABG Sodium ABG Potassium ABG Chloride ABG Glucose Carboxyhemoglobin Sodium 149 H Potassium Chloride 113.8 H Carbon Dioxide BUN 44 H Creatinine Glucose 108 H POC Glucose 106 H Lactic Acid Calcium Ionized Calcium Phosphorus Magnesium AST Alkaline Phosphatase C-Reactive Protein Total Protein Albumin Triglycerides Arterial Blood Glucose Arterial Blood Ionized Calcium Urine WBC (Auto) Urine Creatinine Crossmatch 01/21/21 01/21/21 01/22/21 08:20 17:41 05:38 WBC RBC Hgb Hct MCV MCHC RDW Plt Count Lymph % (Auto) Eos % (Auto) Lymph # (Auto) Eos # (Auto) Seg Neutrophils % Seg Neuts % (Manual) Lymphocytes % (Manual) Seg Neutrophils # Seg Neutrophils # Man Lymphocytes # (Manual) Monocytes # (Manual) PT INR APTT Fibrinogen ABG pH POC ABG pCO2 POC ABG pO2 ABG pO2 ABG Base Excess ABG Hemoglobin ABG Oxyhemoglobin ABG Sodium ABG Potassium ABG Chloride ABG Glucose Carboxyhemoglobin Sodium 153 H Potassium Chloride 118.2 H Carbon Dioxide BUN 47 H Creatinine Glucose 105 H POC Glucose 115 H 111 H Lactic Acid Calcium 8.3 L Ionized Calcium Phosphorus Magnesium AST Alkaline Phosphatase C-Reactive Protein Total Protein Albumin Triglycerides Arterial Blood Glucose Arterial Blood Ionized Calcium Urine WBC (Auto) Urine Creatinine Crossmatch 01/22/21 01/22/21 01/22/21 10:08 10:08 11:57 WBC RBC 3.11 L Hgb 8.9 L Hct 27.5 L MCV MCHC RDW 16.9 H Plt Count Lymph % (Auto) Eos % (Auto) Lymph # (Auto) Eos # (Auto) Seg Neutrophils % Seg Neuts % (Manual) Lymphocytes % (Manual) Seg Neutrophils # Seg Neutrophils # Man Lymphocytes # (Manual) Monocytes # (Manual) PT INR APTT Fibrinogen ABG pH POC ABG pCO2 POC ABG pO2 ABG pO2 ABG Base Excess ABG Hemoglobin ABG Oxyhemoglobin ABG Sodium ABG Potassium ABG Chloride ABG Glucose Carboxyhemoglobin Sodium 153 H Potassium Chloride 119.5 H Carbon Dioxide BUN 42 H Creatinine Glucose 111 H POC Glucose 112 H Lactic Acid Calcium 7.8 L Ionized Calcium Phosphorus Magnesium AST Alkaline Phosphatase C-Reactive Protein Total Protein Albumin Triglycerides Arterial Blood Glucose Arterial Blood Ionized Calcium Urine WBC (Auto) Urine Creatinine Crossmatch 01/22/21 01/22/21 01/23/21 17:05 23:35 05:45 WBC RBC Hgb Hct MCV MCHC RDW Plt Count Lymph % (Auto) Eos % (Auto) Lymph # (Auto) Eos # (Auto) Seg Neutrophils % Seg Neuts % (Manual) Lymphocytes % (Manual) Seg Neutrophils # Seg Neutrophils # Man Lymphocytes # (Manual) Monocytes # (Manual) PT INR APTT Fibrinogen ABG pH POC ABG pCO2 POC ABG pO2 ABG pO2 ABG Base Excess ABG Hemoglobin ABG Oxyhemoglobin ABG Sodium ABG Potassium ABG Chloride ABG Glucose Carboxyhemoglobin Sodium Potassium Chloride Carbon Dioxide BUN Creatinine Glucose POC Glucose 107 H 109 H Lactic Acid Calcium Ionized Calcium Phosphorus Magnesium AST Alkaline Phosphatase C-Reactive Protein 4.00 H Total Protein Albumin Triglycerides Arterial Blood Glucose Arterial Blood Ionized Calcium Urine WBC (Auto) Urine Creatinine Crossmatch 01/23/21 01/23/21 01/23/21 09:29 12:02 23:58 WBC RBC Hgb Hct MCV MCHC RDW Plt Count Lymph % (Auto) Eos % (Auto) Lymph # (Auto) Eos # (Auto) Seg Neutrophils % Seg Neuts % (Manual) Lymphocytes % (Manual) Seg Neutrophils # Seg Neutrophils # Man Lymphocytes # (Manual) Monocytes # (Manual) PT INR APTT Fibrinogen ABG pH POC ABG pCO2 POC ABG pO2 ABG pO2 ABG Base Excess ABG Hemoglobin ABG Oxyhemoglobin ABG Sodium ABG Potassium ABG Chloride ABG Glucose Carboxyhemoglobin Sodium 154 H Potassium Chloride 117.6 H Carbon Dioxide BUN 41 H Creatinine Glucose 122 H POC Glucose 113 H 114 H Lactic Acid Calcium Ionized Calcium Phosphorus Magnesium AST Alkaline Phosphatase C-Reactive Protein Total Protein Albumin Triglycerides Arterial Blood Glucose Arterial Blood Ionized Calcium Urine WBC (Auto) Urine Creatinine Crossmatch Chest x-ray: report reviewed, image reviewed
[2021-01-24] MEDS: DEXTROSE 5% IN WATER 1,000 ML IV SCH (04:04)
[2021-01-24] MEDS: HYDROmorphone 1 MG/1 ML INJ IV SCH ×4 (04:12→10:31)
[2021-01-24] MEDS: HEPARIN 5,000 UNIT/1 ML VIAL SUB-Q SCH (06:18)
[2021-01-24] MEDS: FREE WATER PO SCH ×2 (06:18→09:34)
[2021-01-24] MEDS: INSULIN REGULAR, HUMAN 100 UNITS/1 ML SUB-Q SCH ×2 (06:19→06:20)
--- NOTE | 2021-01-24 08:32 | Discharge Summary ---
Providers - Providers Date of Admission: 12/20/20 16:42 Date of discharge: 01/24/21 Attending physician: HARIKA LIRA 12/20/20 18:22 Consult to Physician [CONS] Routine Comment: Dr. Tena spoke with Dr. Cherry/ del Consulting Provider: EVELYN CHERYR Physician Instructions: Reason For Exam: CRITICAL CARE 12/20/20 21:58 Consult to Dietitian/Nutrition [CONS] Routine Physician Instructions: Reason For Exam: Reason for Consult: Evaluate nutritional intake 12/21/20 09:16 Consult to PICC Line RN [CONS] Urgent Reason For Exam: need for vasopressor Type Line:: PICC 12/22/20 11:54 Consult to Physician [CONS] Routine Comment: Consulting Provider: ARGENTINA BAIRD Physician Instructions: Reason For Exam: sepsis 12/23/20 08:37 Consult to Physician [CONS] Routine Comment: Consulting Provider: LOLITA LR Physician Instructions: Reason For Exam: JONI 12/24/20 15:13 Consult to Dietitian/Nutrition [CONS] Routine Physician Instructions: Reason For Exam: Reason for Consult: tpn 01/06/21 12:20 Consult to Dietitian/Nutrition [CONS] Routine Physician Instructions: Reason For Exam: cleared for trickle feeding by Dr. Tena Reason for Consult: Write/Manage Tube Feeding 01/16/21 15:25 Consult to Wound/ET Nurse [CONS] Routine Reason For Exam: wound eval 01/19/21 09:50 Consult to Dietitian/Nutrition [CONS] Stat Physician Instructions: Cr improving; diarrhea causing k/mg/na disturb Reason For Exam: PLEASE change TF due to ongoing diarrhea; Reason for Consult: Write/Manage Tube Feeding Primary care physician: COBOL DEVELOPER Hospitalization Reason for admission: SBO Condition: Stable Hospital course: This is a 60-year-old male with obesity, hypertension, nicotine dependence, PVD s/p stent placement on dual antiplatelet therapy, hyperlipidemia, OA, GERD, ventral hernia with SBO who presents to the emergency department on 12/20 with severe, diffuse, worsened with movement, slightly relieved with rest abdominal pain rated at 10/10 with decreased oral intake, nausea and multiple episodes of vomiting. Patient underwent a CT of his abdomen/pelvis and was found to have evidence of small bowel obstruction as well as clinical findings consistent with acute peritonitis. Patient was admitted to the hospital service with acute peritonitis and incarcerated ventral hernia with consults to [facility] and surgery. The patient had initial septic shock secondary to intra-abdominal source/peritonitis. Patient with necrotic bowel secondary to incarcerated ventral hernia. Status post exploratory laparotomy, extensive adhesiolysis, small bowel resection and peritoneal lavage along with ABThera VAC placement on 12/20/2020, replacement 12/29/2020. Off pressors. Last surgery abdomen closure with mesh 01/02/2021. Repeat CT 01/09/21 with large [id number] organized but bland appearing reactive fluid collection in anterior abdomen - seroma v/s hematoma. Patient had other complications during the hospital course that included a persistent fever since 01/16 and new sepsis. Patient reportedly had Acinetobacter and Citrobacter bacteremia. Source could be urine/line/abdominal wound. UA with significant pyuria. Lawrence and HD cath were removed. Hospital course: 12/21: Patient is status post ex lap, extensive lysis of adhesions, small bowel resection, peritoneal lavage and ABThera abdominal wound VAC placement by Dr. Tena and Dr. Brumfield on 12/20 with removal of a 70 cm segment of necrotic small bowel. Patient was intubated and sedated on propofol / 4 at the time of my examination on Assist-control, rate of 24, PEEP of 6, tidal volume of 550 and FiO2 35%. Patient needed to be deeply sedated and there was a became hypotensive. Patient was started on patient for support with Levophed and received bolus of IVF. 12/22: Patient was febrile to 103 and vancomycin and Diflucan were added by [facility] and infectious disease was consulted and they increased Zosyn and stop vancomycin. Patient was given additional 1 L bolus today for CVP goal of 10-12. At the time of examination patient was on Levophed, propofol and fentanyl CMV tidal volume 500, rate of 24, PEEP of 6 and FiO2 65%. Plan for OR tomorrow 12/23: Patient Cr/BUN noted to be increased and nephrology was consulted. ID decreased the zosyn dose d/r renal function. Urine studies ordered. [place] placed today. LR boluses per [facility], TPN to be started. Fractional excretion of sodium calculated at 0.16 indicating prerenal state 12/24: Patient is status post abdominal exploration, small bowel resection of 4 to 5 cm segment of dusky small bowel, peritoneal lavage and ABThera wound VAC placement on 12/23 with surgery, leukocytosis and renal function is improving, worsening hypernatremia and hyperchloremia. Patient will be started on TPN today. We will place on SSI/Accu-Cheks every every 6 hours. Patient noted to be nearly maxed on Levophed and vasopressin was ordered. Remains sedated and on MV 12/25: Leukocytosis continues to improve, given Ca Gluconate today, Hypernatremia, Cr and hyperchorlemia slightly worsened today. Patient is sedated with propofol and fentanyl on CMV TV 500, Rate 24, Peep 6, FiO2 50%. He remains on levophed. Possible OR Saturday. 12/26 Patient presented with small bowel obstruction, is status post ex lap, extensive lysis of adhesions, small bowel resection, peritoneal lavage and ABThera abdominal wound VAC placement by Dr. eTna and Dr. Brumfield on 12/20 with removal of a 70 cm segment of necrotic small bowel. Was taken back to OR on 12/23 s/p Abdominal exploration, Small bowel resection, Peritoneal lavage, ABThera wound VAC placement. he is still having fever. Poss going to OR again today. Sepsis managed by ID. He is on Diflucan, Zosyn. He is on Levophed. 6/8 s/p ex lap, extensive lysis of adhesions, small bowel resection (removal of 70 cm necrotic small bowel segment), peritoneal lavage and ABThera abdominal wound VAC placement. Still having fever Still on vent 12/28: Patient is orally intubated with AC mode ventilation rate 24, tidal volume 500, FiO2 75% and PEEP of 6. POD#8 s/p ex lap and small bowel resection for necrotic bowel secondary to incarcerated ventral hernia left with open abdomen. POD#5 s/p abdominal exploration with segmental small bowel resection. abthera placement POD#2 s/p abdominal exploration, small bowel resection for ischemia, abthera placement -CCM, surgery, infectious disease, nephrology consulted, appreciate recommendations -IV abx per ID: Zosyn, fluconazole -NGT to LIWS -NPO for now, TPN -SSI, Accucheck q6 -Vasopressor support with levophed -On mechanical ventilation, wean as tolerated, VAP bundle -Sedated with propofol and analgesia with fentanyl drip -Trend CBC, BMP, Mg, Phos -GI/DVT prophylaxis: PPI, SCDs to bilateral lower extremities while in bed, avoid chemical anticoagulation to cleared by surgery 12/29: Patient underwent abdominal exploration, small bowel resection, small bowel anastomosis and ABThera wound VAC placement this a.m. Patient remains on AC mode ventilation with a rate of 24, tidal volume 500, FiO2 65% and PEEP of 6. Continue antibiotics per ID recommendations. Continue vasopressor support as needed. Continue TPN for nutritional support. 12/30: Patient currently with AC mode ventilation rate of 24, tidal volume 500, FiO2 60% and PEEP of 6. Patient underwent further surgery yesterday with another abdominal exploration, small bowel resection, small bowel anastomosis and replacement of the ABThera wound VAC. Patient continues to require vasopressor support with vasopressin and Levophed. Continue TPN for nutrition. Continue propofol and fentanyl for sedation. Continue Zosyn per ID recommendations. INITIATED ON HD PER NEPHRO 12/31: Patient currently with AC mode ventilation rate of 24, tidal volume 500, FiO2 50% and PEEP of 6. POD#12 s/p ex lap and small bowel resection for necrotic bowel secondary to incarcerated ventral hernia left with open abdomen. POD#9 s/p abdominal exploration with segmental small bowel resection. abthera placement POD#3 s/p abdominal exploration, small bowel resection for ischemia, abthera placement POD#2 s/p abdominal exploration with small bowel anastamosis and abthera vac placement Continue hemodialysis per nephrology recommendations. Surgery plans for abdominal washout and bowel examination on Saturday. If anast amosis looks viable and no other issues, surgery plans to close his abdomen. 01/01: Continue current ventilator settings per pulmonary monitor ABG. Continue antibiotics per ID recommendations. Surgery plans for abdominal washout and bowel examination. If anastamosis looks viable and no other issues, surgery plans to close his abdomen. Wean pressors to maintain MAP > 65. Continue TPN for nutritional support. Hemodialysis per nephrology recommendations. Prognosis remains guarded. 01/02: At the time my examination patient was only on vasopressin for vasopressor support, sedated on 30 mcg of propofol and 4 mcg of fentanyl. Patient was on CMV tidal volume 500, rate of 12, PEEP of 10 and 50% FiO2. Patient remains on TPN and with NG tube to low intermittent suction. Patient underwent a my ocutaneous flap creation, abdominal wall component separation and placement of phasix mesh with surgery yesterday where his abdomen was closed and 2 LAURA drains were placed on either side of his midline between fascia and subcu tissue. Per infectious his antibiotics will continue until 5 days postop from a final surgery. Patient has increasing leukocytosis which are likely reactive to surgery and patient will have hemodialysis today for clearance and volume removal. Patient sedation and mechanical ventilation will be weaned for extubation. 01/03: Patient H/H is 6.2/18.5 and he is being transfused 2 units PRBC with hemodialysis today. Patient has slight hypokalemia but TPN has been adjusted to address potassium. Patient continues to have hyponatremia, hypochloremia and hyperphosphatemia closely improved. The time my examination patient sedated on fentanyl and propofol and LAURA drainage noted to be more serosanguineous. Patient was on assist control with TV 500, PEEP of 8, rate of 28 and FiO2 40%. Patient remains off vasopressor support. No acute overnight events reported 01/04: Patient sedated on propofol and fentanyl. RN reported bowel movement overnight. Precedex drip started. NG tube clamped and may start trickle tube feedings later if patient does not have high residuals. CCM continues to wean ventilation as tolerated. On my exam patient is on CMV tidal volume 500 rate of 28, PEEP of 8 and 40% FiO2. Patient is having periods of agitation and FiO2 had to be increased for hypoxia. Mucor species in tracheal aspirate but ID believes this is colonization. 01/05: Patient is severely agitated and received multiple IV push fentanyl. Patient was ultimately started on propofol. He received hemodialysis today. Patient had approximately 400 mL of NG output overnight. NG tube continues to be on suction. Leukocytosis worsened today. 01/06: Patient is agitated despite fentanyl pushes and Dilaudid was ordered, patient noted to be anemic with a hemoglobin of 6.5 and will be transfused 1 unit PRBC today. Nephrology does not plan to dialyze him today and to keep him on Saturday, , Saturday schedule. No acute events reported overnight. Patient NG tube residuals continue to decrease and surgery has cleared for trickle tube feeds which has been communicated to dietitian. 01/07: This this morning H/H resulted at 6.7/20.1 after 1 unit PRBC 6.7/21.8. Patient's ABG today shows respiratory acidosis and vent settings have been changed by [facility]. Patient should receive hemodialysis today as he is on Saturday schedule. Overnight RN reported 700 mL of NG tube output over 12 hours. We will hold off on trickle feeds and continue TPN. At the time of my examination patient was sedated on propofol, fentanyl, Precedex and on CMV tidal volume 550, rate of 10, PEEP of 8 and 35% FiO2. We will order coags and stool guaiac to further investigate anemia. -01/09 stool pos for guiac; CT Chest/abd/pelvis -01/10: Patient this morning with elevated BP, likely secondary to pain vs ?Hx of Htn, Hydralazine PRN ordered and added to the patient, will monitor. Continue pain control. Wound care management and vent weaning when ok with surgery and In tensivist 01/12: Continue supportive care including pain control. Monitor for bowel movement. Continue off antibiotics per ID monitor. Truck Service Technician following for HD. 01/13/21 patient is seen and examined. Patient is still on vent. Wean to extubate as per critical care. Patient is off antibiotic as per infectious disease. Status post dialysis catheter placed in the right IJ. HD as per neph rology. Continue current management. Recheck CBC BMP in the morning. 01/14/21 patient seen and examined. Patient is still on vent. Patient is agitated. We will try to wean the sedation. We will start metoprolol 5 mg p.o. every 8 hours as needed for blood pressure. Patient is off antibiotic as per infectious disease. Continue hemodialysis as per nephrology. Continue current management. Critical care follow-up. Prognosis is guarded. Recheck CBC BMP in the morning 01/15: Remains with guarded prognosis, no clear evidence of renal recovery, still on the vent. Monitor H/H and repeat CT A/P if downward trend. Replace K. 01/16: Patient is hypokalemic today at 2.9, patient's urinalysis reveals UTI and patient is already on cefepime, vancomycin and fluconazole per ID. Patient's urine output noted to be 3678-8265 mL over the past couple days. Nephrology requested to hold off removal of Lawrence catheter as the patient seems to be in the diuretic phase of ATN and will withhold dialysis for now and evaluate. At the time my examination patient is sedated on propofol and Precedex on CMV tidal line 500, rate of 24, PEEP of 6 and 30% FiO2. Patient was febrile last night with a T-max of 102.7. Patient was cultured overnight. Wound care consult for abd wound with purulent drainage, culture sent. 01/17: Patient is again hypokalemic and hypomagnesemic which was repleted with K-Phos and KCl overnight. Patient has hypernatremia. Nephrology has started the patient on hypotonic IVF with potassium. Right IJ Vas-Cath ordered to be removed. Patient's abdominal culture and blood cultures from 01/16 are growing gram-negative rods. The time my examination patient was on propofol and dexamethasone on assist control. T-max 102.7. 01/18 Discharge planning for LTAC; weaning propofol 01/19 no acute events overnight 01/20: LTACH transfer today, wean propofol 01/21: Patient discharged to LTAC has been delayed (see note). Patient was febrile overnight however we will maintain his current regimen. Patient has hypernatremia and has been started on D5W by nephrology. Possible transfer to LTAC Saturday. 01/22: No overnight events, patient to go to LTAC, remains hypernatremic, continue fluids. 01/23: No overnight events. Hypernatremia is resolving. Patient is trying to self extubate himself, this is why he continues to be in restraints. Disposition: TO HOME OR SELFCARE Final Discharge Diagnosis (Prints w/discharge instructions): obesity, hypertension, nicotine dependence, PVD s/p stent placement on dual antiplatelet therapy, hyperlipidemia, OA, GERD, ventral hernia and small bowel obstruction, seroma v/s hematoma. Acinetobacter/Citrobacter bacteremia Core Measure Documentation - Palliative Care Palliative Care/ Comfort Measures: Not Applicable - Core Measures Any of the following diagnoses?: none Exam - Constitutional Vitals: Temp Pulse Resp BP Pulse Ox 98 F 94 H 16 98/63 99 01/24/21 08:00 01/24/21 08:00 01/24/21 07:30 01/24/21 08:00 01/24/21 08:00 General appearance: Present: no acute distress, well-nourished - EENT Eyes: Present: PERRL ENT: hearing intact, clear oral mucosa - Neck Neck: Present: supple, normal ROM - Respiratory Respiratory effort: normal Respiratory: bilateral: CTA - Cardiovascular Heart Sounds: Present: S1 & S2. Absent: rub, click - Extremities Extremities: pulses symmetrical, No edema Peripheral Pulses: within normal limits - Abdominal General gastrointestinal: Present: soft, non-tender, non-distended, normal bowel sounds Male genitourinary: Present: normal - Integumentary Integumentary: Present: clear, warm, dry - Musculoskeletal Musculoskeletal: gait normal, strength equal bilaterally - Psychiatric Psychiatric: appropriate mood/affect, intact judgment & insight - Neurologic Neurologic: CNII-XII intact, moves all extremities Plan Activity: advance as tolerated Weight Bearing Status: Weight Bear as Tolerated Diet: per dietitian instruction Follow up with: ARGENTINA BAIRD MD [Staff Physician] - 7 Days KENDRICK TENA MD [Staff Physician] - 7 Days PRIMARY CARE, [Primary Care Provider] - 3-5 Days
[2021-01-24] MEDS: QUEtiapine 25 MG TAB PO SCH (09:33)
[2021-01-24] MEDS: CEFEPIME/NS 2 GM/100 ML 2 GM/100 ML BAG IV SCH (09:33)
[2021-01-24] MEDS: FAMOTIDINE 20 MG TAB PO SCH (09:33)
[2021-01-24 09:49] LABS: BUN/Creatinine Ratio 37; Blood Urea Nitrogen 37 mg/dL (9-20); Calcium 8.5 mg/dL (8.4-10.2); Hemolysis Index 1
--- NOTE | 2021-01-24 10:30 | Progress Note ---
Subjective Date of service: 01/24/21 Principal diagnosis: SBO and necrosis of large part of small intestine Interval history: Impression * Nonoliguric acute kidney injury secondary to ATN --HD initiated December 30 * Incarcerated hernia with ischemic bowel. Status post bowel resection * Hypernatremia, * Fluid overload * Sepsis * Respiratory failure, intubated * Hyperkalemia * Metabolic Acidosis, Gap * Hypoalbuminemia * Anemia * Bacteremia Recommendations * Patient with good UOP. Polyuria seems to be improving . * Renal function has improved significantly. Patient remains off dialysis . * Do not anticipate need for additional dialysis treatment. Patient is bacteremic. His Vas-Cath has been removed * Would recommend maintaining Lawrence catheter for now * Transfuse for Hb < 7 * TPN per nutrition/primary * Pressors prn to maintain MAP greater than 65 * Avoid nephrotoxins * Monitor fluid status and electrolytes * Replace potassium * Patient is still hypernatremic. Continue IV dextrose as well as free water through the feeding tube * increase D5W today * Plans for transfer to LTAC noted Subjective Principal diagnosis: SBO and necrosis of large part of small intestine Interval history: Patient is currently resting well in bed today Objective - General Appearance General appearance: well-developed, well-nourished, appears stated age, intubated EENT: PERRL, mucous membranes moist Neck: no JVD, no thyromegaly, no carotid bruit, supple Respiratory: Present: Clear to Ascultation Cardiology: regular, normal heart rate Gastrointestinal: other (Midline dressing in place. Abdominal binder noted.) Integumentary: other (No edema) Objective - Vital Signs Vital signs: Vital Signs - 12hr 01/23/21 01/23/21 01/23/21 22:31 22:45 23:00 Temperature Pulse Rate 85 84 84 Pulse Rate [ From Monitor] Respiratory Rate Blood Pressure 95/55 95/55 94/52 O2 Sat by Pulse 99 99 100 Oximetry 01/23/21 01/23/21 01/23/21 23:15 23:31 23:45 Temperature Pulse Rate 89 91 H 93 H Pulse Rate [ From Monitor] Respiratory Rate Blood Pressure 94/52 94/52 94/52 O2 Sat by Pulse 93 93 99 Oximetry 01/24/21 01/24/21 01/24/21 00:00 00:15 00:19 Temperature 99.2 F 98.8 F Pulse Rate 91 H 95 H Pulse Rate [ 92 H From Monitor] Respiratory 26 H Rate Blood Pressure 84/60 84/60 O2 Sat by Pulse 98 100 Oximetry 01/24/21 01/24/21 01/24/21 00:25 00:31 00:45 Temperature Pulse Rate 93 H 96 H 96 H Pulse Rate [ From Monitor] Respiratory Rate Blood Pressure 82/42 84/60 84/60 O2 Sat by Pulse 100 99 99 Oximetry 01/24/21 01/24/21 01/24/21 01:01 01:15 01:31 Temperature Pulse Rate 92 H 89 93 H Pulse Rate [ From Monitor] Respiratory Rate Blood Pressure 82/42 101/64 101/64 O2 Sat by Pulse 100 100 100 Oximetry 01/24/21 01/24/21 01/24/21 01:45 02:00 02:15 Temperature Pulse Rate 92 H 92 H 98 H Pulse Rate [ From Monitor] Respiratory Rate Blood Pressure 101/64 94/52 122/77 O2 Sat by Pulse 97 100 96 Oximetry 01/24/21 01/24/21 01/24/21 02:30 02:45 03:01 Temperature Pulse Rate 97 H 101 H 101 H Pulse Rate [ From Monitor] Respiratory Rate Blood Pressure 120/92 120/92 126/78 O2 Sat by Pulse 100 97 100 Oximetry 01/24/21 01/24/21 01/24/21 03:15 03:31 03:44 Temperature 99.5 F Pulse Rate 98 H 98 H Pulse Rate [ From Monitor] Respiratory Rate Blood Pressure 126/78 118/62 O2 Sat by Pulse 99 98 Oximetry 01/24/21 01/24/21 01/24/21 03:45 04:00 04:15 Temperature Pulse Rate 97 H 96 H 93 H Pulse Rate [ 94 H From Monitor] Respiratory 28 H Rate Blood Pressure 118/62 117/69 117/69 O2 Sat by Pulse 100 100 99 Oximetry 01/24/21 01/24/21 01/24/21 04:30 04:31 04:45 Temperature Pulse Rate 94 H 94 H 95 H Pulse Rate [ From Monitor] Respiratory Rate Blood Pressure 98/60 98/60 98/60 O2 Sat by Pulse 100 100 100 Oximetry 01/24/21 01/24/21 01/24/21 05:01 05:15 05:31 Temperature Pulse Rate 95 H 95 H 94 H Pulse Rate [ From Monitor] Respiratory Rate Blood Pressure 122/56 122/56 106/52 O2 Sat by Pulse 100 100 100 Oximetry 01/24/21 01/24/21 01/24/21 05:45 06:01 06:15 Temperature Pulse Rate 99 H 96 H 94 H Pulse Rate [ From Monitor] Respiratory 23 22 Rate Blood Pressure 106/52 115/50 115/50 O2 Sat by Pulse 56 L 100 98 Oximetry 01/24/21 01/24/21 01/24/21 06:31 06:45 07:01 Temperature Pulse Rate 96 H 94 H 90 Pulse Rate [ From Monitor] Respiratory 29 H 24 18 Rate Blood Pressure 116/65 116/65 113/66 O2 Sat by Pulse 99 98 100 Oximetry 01/24/21 01/24/21 01/24/21 07:15 07:30 07:45 Temperature Pulse Rate 95 H 94 H 92 H Pulse Rate [ From Monitor] Respiratory 17 16 16 Rate Blood Pressure 113/66 107/62 107/62 O2 Sat by Pulse 99 99 99 Oximetry 01/24/21 01/24/21 01/24/21 08:00 08:15 08:30 Temperature 98 F Pulse Rate 92 H 93 H 95 H Pulse Rate [ 94 H From Monitor] Respiratory 21 23 21 Rate Blood Pressure 98/63 98/63 107/66 O2 Sat by Pulse 100 100 98 Oximetry 01/24/21 01/24/21 08:45 09:01 Temperature Pulse Rate 89 95 H Pulse Rate [ From Monitor] Respiratory 26 H 27 H Rate Blood Pressure 107/66 119/48 O2 Sat by Pulse 98 99 Oximetry - Lab 01/22/21 10:08 01/24/21 08:42 Most recent lab results ABG pH 7.512 (7.320-7.450) H 01/19/21 05:00 ABG pCO2 37.9 mm Hg 01/05/21 03:50 ABG pO2 136.8 mm Hg (80.0-90.0) H 01/05/21 03:50 ABG HCO3 22.4 mmol/L (20.0-26.0) 01/05/21 03:50 ABG O2 Saturation 84.4 (0-100) 01/19/21 05:00 Calcium 8.5 mg/dL (8.4-10.2) 01/24/21 08:42 Phosphorus 4.40 mg/dL (2.5-4.5) 01/17/21 04:30 Magnesium 1.90 mg/dL (1.7-2.3) 01/20/21 07:25 Urine Creatinine 17.6 mg/dL (0.1-20.0) 01/19/21 Unknown Urine Sodium 87 mmol/L 01/19/21 Unknown Medications & Allergies - Medications Allergies/Adverse Reactions: Allergies Iodinated Contrast Media Adverse Reaction (Verified 09/04/18 14:20) Unknown Home Medications: Home Medications Medication Instructions Recorded Confirmed Last Taken Type AtorvaSTATin [Lipitor] 80 mg PO QHS tablet 05/08/19 01/04/21 03/28/20 Rx Albuterol Sulfate [Proventil Hfa] 13.4 gm IH Q6H #1 hfa.aer.ad 04/01/20 01/04/21 Unknown Rx Dextrose 50% in Water [D50W (25GM) 50 ml IV Q30MIN PRN syringe 01/20/21 Unknown Rx Syringe] Famotidine [Pepcid] 20 mg PO BID tablet 01/20/21 Unknown Rx Free Water 300 ml PO Q4HR oral.liqd 01/20/21 Unknown Rx HYDROmorphone [Dilaudid] 0.25 mg IV Q4H PRN syringe 01/20/21 Unknown Rx HYDROmorphone [Dilaudid] 0.5 mg IV Q4H PRN syringe 01/20/21 Unknown Rx HYDROmorphone [Dilaudid] 1 mg IV Q4H syringe 01/20/21 Unknown Rx Insulin Regular, Human [HumuLIN R] 0 units SUB-Q Q6H units 01/20/21 Unknown Rx Lipase/Protease/Amylase [Pancreaze 1 each FEEDTUBE PRN PRN capsule 01/20/[address] 10,500 Unit] Min Oil/Petrolatum [Artificial 1 applic OU Q4HR PRN tube 01/20/21 Unknown Rx Tears Ophth Oint] Petrolatum,White [Vaseline Lip 1 applic TP Q2HR PRN tube 01/20/21 Unknown Rx Therapy] Potassium Chloride 40 meq FEEDTUBE BID packet 01/20/21 Unknown Rx QUEtiapine [SEROquel] 50 mg PO BID tablet 01/20/21 Unknown Rx Simple Syrup 15 ml FEEDTUBE PRN PRN oral.liqd 01/20/21 Unknown Rx Sodium Bicarbonate 325 mg FEEDTUBE PRN PRN tablet 01/20/21 Unknown Rx Sodium Chloride 0.9% Int [Sodium 10 ml IV BID syringe 01/20/21 Unknown Rx Chloride Flush Syringe 10 ml] Sodium Chloride 0.9% Int [Sodium 10 ml IV PRN PRN syringe 01/20/21 Unknown Rx Chloride Flush Syringe 10 ml] dexmedeTOMIDine [Dexmedetomidine] 1,000 mcg IV TITRATE vial 01/20/21 Unknown Rx fentaNYL 50 MCG/HR Patch 72HR 1 applic TD Q3D ea 01/20/21 Unknown Rx [Duragesic 50mcg] Active Medications: Generic Name Dose Route Start Last Admin Trade Name Freq PRN Reason Stop Dose Admin Acetaminophen 650 mg 01/16/21 03:57 01/21/21 16:25 Acetaminophen 325 Mg/10.15 Ml Oral Liqd Unit Dose FEEDTUBE 650 mg Q6H PRN Administration Non Cardiac Pain or Temp>100.5 Lipase/Protease/Amylase 1 each 01/07/21 08:44 Lipase 10,500/Protease 25,000/Amylase 43,750 (Units) Dr Maharaj FEEDTUBE PRN PRN For Clogged Feeding Tube Dextrose 50 ml 12/24/20 10:49 Dextrose 50% In Water (25gm) 50 Ml Syringe IV Q30MIN PRN Hypoglycemia Protocol Famotidine 20 mg 01/17/21 10:00 01/24/21 09:33 Famotidine 20 Mg Tab PO 20 mg BID ASCENCION Administration Fentanyl 1 applic 01/11/21 14:00 01/23/21 10:05 Fentanyl 50 Mcg/Hr Patch 72hr TD 1 applic Q3D SACENCION Administration Heparin Sodium (Porcine) 5,000 unit 01/06/21 14:00 01/24/21 06:18 Heparin 5,000 Unit/1 Ml Vial SUB-Q 5,000 unit Q8HR ASCENCION Administration Hydromorphone HCl 0.5 mg 01/12/21 10:10 01/17/21 15:00 Hydromorphone 1 Mg/1 Ml Inj IV 0.5 mg Q4H PRN Administration Pain , Severe (7-10) Hydromorphone HCl 0.25 mg 01/12/21 10:11 01/15/21 15:40 Hydromorphone 1 Mg/1 Ml Inj IV 0.25 mg Q4H PRN Administration Pain, Moderate (4-6) Hydromorphone HCl 1 mg 01/19/21 11:00 01/24/21 06:18 Hydromorphone 1 Mg/1 Ml Inj IV 1 mg Q4H ASCENCION Administration Hydrophilic Ointment 1 applic 12/20/20 21:58 Lip Therapy Vaseline TP Q2HR PRN Dry Lips Dexmedetomidine HCl 1,000 mcg/ 260 mls @ 7.322 mls/hr 01/15/21 01:00 01/24/21 01:06 Sodium Chloride IV 1 mcg/kg/hr TITRATE ASCENCION 36.608 mls/hr Titration Protocol 0.2 MCG/KG/HR Cefepime HCl 2 gm in 100 mls @ 200 mls/hr 01/20/21 12:00 01/24/21 09:33 Cefepime/Ns 2 Gm/100 Ml IV 01/26/21 22:29 200 mls/hr Q12HR ASCENCION Administration Protocol Dextrose 1,000 mls @ 75 mls/hr 01/21/21 12:00 01/24/21 04:04 D5w IV 75 mls/hr DIRECT ASCENCION Administration Insulin Human Regular 0 units 12/28/20 00:00 01/24/21 06:20 Insulin Regular, Human 100 Units/1 Ml SUB-Q Not Given Q6H ASCENCION Protocol Metoprolol Tartrate 5 mg 01/14/21 13:37 01/15/21 12:42 Metoprolol Tartrate 5 Mg/5 Ml Inj IV 5 mg Q6H PRN Administration SBP >/=160 Multi-Ingred Cream/Lotion/Oil/Oint 1 applic 12/20/20 21:58 01/03/21 01:13 Mineral Oil/Petrolatum, White Ophth Oint 3.5 Gm OU 1 applic Q4HR PRN Administration Dry Eye(s) Quetiapine Fumarate 50 mg 01/19/21 12:00 01/24/21 09:33 Quetiapine 25 Mg Tab PO 50 mg BID ASCENCION Administration Simple Syrup 15 ml 01/07/21 08:44 Simple Syrup 15 Ml FEEDTUBE PRN PRN Hypoglycemia Sodium Bicarbonate 325 mg 01/07/21 08:44 Sodium Bicarbonate 325 Mg Tab FEEDTUBE PRN PRN For Clogged Feeding Tube Sodium Chloride 10 ml 12/20/20 22:00 01/24/21 09:34 Sodium Chloride 0.9% 10 Ml Flush Syringe IV 10 ml BID ASCENCION Administration Sodium Chloride 10 ml 12/20/20 16:42 01/17/21 06:01 Sodium Chloride 0.9% 10 Ml Flush Syringe IV 10 ml PRN PRN Administration LINE FLUSH
--- NOTE | 2021-01-24 10:44 | Progress Note ---
Assessment and Plan Cultures: 12/20/2020 blood culture: No growth 12/20/2020 urine culture: Usual skin giorgio 12/20/2020 tracheal aspirate culture: Mucor 01/16/2021 blood culture: Acinetobacter, Citrobacter 01/16/2021 wound culture: Pseudomonas aeruginosa, Proteus 01/19/2021 blood culture: No growth 01/20/2021 urine culture: no growth A/P: 60-year-old male with obesity, hypertension, tobacco abuse, coronary artery disease, admitted to the hospital on 12/20/2020 with: #Persistent Fever since 01/16, new sepsis secondary to Acinetobacter/Citrobacter bacteremia: Source could be urine/line/abdominal wound. UA with significant pyuria. Lawrence and HD cath were removed. Low-grade fever overnight #Initial septic shock: Resolved. Secondary to intra-abdominal source, peritonitis. Patient with necrotic bowel secondary to incarcerated ventral hernia. Status post exploratory laparotomy, extensive adhesiolysis, small bowel resection and peritoneal lavage along with ABThera VAC placement on 12/20/2020, replacement 12/29/2020. Off pressors. Last surgery abdomen closure with mesh 01/02/2021. Repeat CT 01/09/21 with large [id number] organized but bland appearing reactive fluid collection in anterior abdomen - seroma v/s hematoma. Surgery following. CRP 4. #JONI: Renally dose antibiotics. Was requiring hemodialysis, now off, creatinine better, nephrology following. JONI resolving. #Morbid obesity #Mucor in tracheal aspirate is likely colonization. No treatment needed currently. Recs: -Patient to be transferred to [facility] -Continue IV cefepime 2 g every 12 hours D7, fever improving the last 36 hours will monitor -Follow-up procal -If patient remains persistently febrile, consider CT abdomen and pelvis to eval collection -Continue wound care for lower abdominal wound Priscilla Marie MD [facility] O: [phone] F: [phone] Subjective Date of service: 01/24/21 Principal diagnosis: SBO and necrosis of large part of small intestine Interval history: Afebrile, no acute change. Cultures remain negative thus far. Objective - Exam Narrative Exam: General appearance: Alert, intubated Eyes: anicteric sclerae, moist conjunctivae; no lid-lag HENT: Normocephalic, Atraumatic; normal external ears, nares open, oropharynx NG tube in place Neck: supple, tracheal midline, no JVD Lungs: Bilateral coarse breath sounds CV: RRR Abdomen: Soft, midline surgical wound, drain in place, scrotal edema and skin tears Extremities: Bilateral leg edema Skin: Large scrotum, Lawrence in place Psych: Alert slightly anxious Neuro: Alert, follows commands Rectal tube in place - Constitutional Vitals: Vital Signs Temp Pulse Resp BP Pulse Ox 98 F 95 H 27 H 119/48 99 01/24/21 08:00 01/24/21 09:01 01/24/21 09:01 01/24/21 09:01 01/24/21 09:01 Temperature -Last 24 Hours Temperature 98 F Temperature 99.5 F Temperature 98.8 F Temperature 99.2 F Temperature 99.2 F Temperature 98.8 F Temperature 99.3 F - Labs CBC & Chem 7: 01/22/21 10:08 01/24/21 08:42 Labs: Abnormal lab results 01/23/21 01/23/21 01/24/21 Range/Units 12:02 23:58 08:42 Sodium 152 H (137-145) mmol/L Chloride 115.3 H (98-107) mmol/L BUN 37 H (9-20) mg/dL Glucose 123 H (75-100) mg/dL POC Glucose 113 H 114 H (70-105) mg/dL
[2021-01-24] MEDS ORDERED: DEXTROSE 5% IN WATER 1,000 ML IV SCH (11:00)
--- NOTE | 2021-01-24 11:09 | Progress Note ---
Assessment and Plan 60 y/o male with abdominal catastrophe, s/p ex-lap with open abdomen, ventilated for pain control and support. 01/24/21: No new recs pulm jc. Continue daily SBT's. Hopeful he can be extubated but may require trach. Needs PT/OT 01/22/21: Per CM, patient cannot move until Saturday. Clinically stable. Daily weaning trials. Needs PT/OT. Supportive measures. 01/21/21: Hopeful patient will be transported today and not with [facility]. Continue supportive measures. 01/20/21: No objection to discharge to [facility] today. Suggest continued scheduled pain control to help with weaning. Hopeful patient will not need trach. PT/OT at [facility]ACH. Abx therapy per ID recs. Stable for transfer as he has no hemodynamic instability. 01/19/21: Discussed the patient on rounds with nurse at bedside and then with rest Interdisciplinary team. The persistent fever is bothersome, but it appears that we have a source from this abdominal wound. The ID docs have changed abx therapy to reflect this. Despite the patient having large amounts of urine and scrotal edema, will go ahead and remove the haley as this still could be a potential source for infection and persistent fever. Hemodynamically the patient is stable and we are treating with abx. I have no objection to discharge to [facility]ACH facillity as long as they are comfortable with the transfer. We have restarted the scheduled pain meds to see if this can get him off all continued sedation. Agree with fiber and modification of tube feeds to help with diarrhea. Prognosis remains guarded. 01/18/21: Ok with transfer to [facility]. Spoke with nursing today about removal of vascath and changing of haley. Will be done. Abx per ID. asked TEAM LEADER to speak with surgery in regards to wound if any further therapy is needed. Defer to renal in regards to further therapy for electrolytes. 01/17/21: Will discuss renal but most likely vascath should be removed. Abx per ID. Renal has requested the haley stay in for urine output measurement and I agree. Waiting to here from insurer about LTACH as patient will need it for vent recovery and weaning. Monitor BP closely, may need to start replacing fluids 1:1. Will defer to renal on type of fluid given electrolyte imbalances. Prognosis still remains guarded. 01/16/21: Follow up blood cultures from last night. need to send ua as well. Renal holding HD today, hopeful patient is in the diuretic phase of ATN. Will have RT place patient on PSV trial today to see how he does. Hold on abx therapy for right now. If cultures come back positive, will need to remove right IJ vascath which was just placed on Saturday at the suggestion of infection control and infectious days. completed letter for insurance for patient today, hopeful will be LTACH approved soon. 01/13/21: Place IJ vascath today. Added PRN dilaudid on lebron of scheduled dilaudid. Goal is to not put patient back on continuous drip for pain so that we can facilitate weaning. needs peer to peer for LTACH approval. Continue supportive measures. 01/12/21: Patient getting dialysis today. Continue to control pain, added PRN dilauded on top of scheduled dosing as patient still gets very agitated off diprovan. Will discuss with renal plans for future HD as ID and Infection control are very concerned about the groin catheter. If permanent dialysis then will ask that IR place permcath. if they feel intermittent, then will place IJ and remove femoral vascath. 01/11/21: Will increase pain regimen. Scheduled the dilaudid to q4 and add a fent patch. Would like to avoid drip as we are trying to actively wean patient from mechanical ventilation. Spoke with ALESSANDRA who states LTACH has accepted patient but we are waiting on insurance authorization. HgB is stable this am and reviewed surgery and IR recs. I do no think the area of fluid needs to be sampled. 01/10/21: Spoke with surgery this am about CT findings. Will discuss with IR their thoughts on fluid. Not concerned about infection in that area. Main reason for CT was to see if we could figure out where blood was going as it was coming out of his bottom or NG contents. This is appears to be something small and slow, like a venous issues. Hopefully it has sealed off at this time. HgB is up to 8 this am patient did not get blood on yesterday. Off fent now, will continue to wean Diprovan and Precedex as tolerated. Spoke with CM and asked to send out to LTACH's but will steal try to aggressively wean. Making good urine, hopeful kidney's will recover. Will ask renal about other ways to remove volume in third spacing (albumin, lasix etc). Prognosis still remains guarded. Continue TPN for now. 01/09/21: Will obtain contrasted CT of abdomen and pelvis to look for potential pockets of blood or bleeding. Spoke with renal and they feel kidneys are recovering but ok with HD tomorrow if needed post dye load. Will attempt to wean Fent more and use prn dilaudid. Will start reglan to help with gut motility. Hopeful to be off TPN soon. Once sedation is off, can start SBT's. CCT 31 minutes. Subjective Date of service: 01/24/21 Principal diagnosis: SBO and necrosis of large part of small intestine Interval history: Awake and alert. Not on sedation. Not sure if SBT was tried this am. Objective Vital Signs - 12hr 01/23/21 01/23/21 01/23/21 23:15 23:31 23:45 Temperature Pulse Rate 89 91 H 93 H Pulse Rate [ From Monitor] Respiratory Rate Blood Pressure 94/52 94/52 94/52 O2 Sat by Pulse 93 93 99 Oximetry 01/24/21 01/24/21 01/24/21 00:00 00:15 00:19 Temperature 99.2 F 98.8 F Pulse Rate 91 H 95 H Pulse Rate [ 92 H From Monitor] Respiratory 26 H Rate Blood Pressure 84/60 84/60 O2 Sat by Pulse 98 100 Oximetry 01/24/21 01/24/21 01/24/21 00:25 00:31 00:45 Temperature Pulse Rate 93 H 96 H 96 H Pulse Rate [ From Monitor] Respiratory Rate Blood Pressure 82/42 84/60 84/60 O2 Sat by Pulse 100 99 99 Oximetry 01/24/21 01/24/21 01/24/21 01:01 01:15 01:31 Temperature Pulse Rate 92 H 89 93 H Pulse Rate [ From Monitor] Respiratory Rate Blood Pressure 82/42 101/64 101/64 O2 Sat by Pulse 100 100 100 Oximetry 01/24/21 01/24/21 01/24/21 01:45 02:00 02:15 Temperature Pulse Rate 92 H 92 H 98 H Pulse Rate [ From Monitor] Respiratory Rate Blood Pressure 101/64 94/52 122/77 O2 Sat by Pulse 97 100 96 Oximetry 01/24/21 01/24/21 01/24/21 02:30 02:45 03:01 Temperature Pulse Rate 97 H 101 H 101 H Pulse Rate [ From Monitor] Respiratory Rate Blood Pressure 120/92 120/92 126/78 O2 Sat by Pulse 100 97 100 Oximetry 01/24/21 01/24/21 01/24/21 03:15 03:31 03:44 Temperature 99.5 F Pulse Rate 98 H 98 H Pulse Rate [ From Monitor] Respiratory Rate Blood Pressure 126/78 118/62 O2 Sat by Pulse 99 98 Oximetry 01/24/21 01/24/21 01/24/21 03:45 04:00 04:15 Temperature Pulse Rate 97 H 96 H 93 H Pulse Rate [ 94 H From Monitor] Respiratory 28 H Rate Blood Pressure 118/62 117/69 117/69 O2 Sat by Pulse 100 100 99 Oximetry 01/24/21 01/24/21 01/24/21 04:30 04:31 04:45 Temperature Pulse Rate 94 H 94 H 95 H Pulse Rate [ From Monitor] Respiratory Rate Blood Pressure 98/60 98/60 98/60 O2 Sat by Pulse 100 100 100 Oximetry 01/24/21 01/24/21 01/24/21 05:01 05:15 05:31 Temperature Pulse Rate 95 H 95 H 94 H Pulse Rate [ From Monitor] Respiratory Rate Blood Pressure 122/56 122/56 106/52 O2 Sat by Pulse 100 100 100 Oximetry 01/24/21 01/24/21 01/24/21 05:45 06:01 06:15 Temperature Pulse Rate 99 H 96 H 94 H Pulse Rate [ From Monitor] Respiratory 23 22 Rate Blood Pressure 106/52 115/50 115/50 O2 Sat by Pulse 56 L 100 98 Oximetry 01/24/21 01/24/21 01/24/21 06:31 06:45 07:01 Temperature Pulse Rate 96 H 94 H 90 Pulse Rate [ From Monitor] Respiratory 29 H 24 18 Rate Blood Pressure 116/65 116/65 113/66 O2 Sat by Pulse 99 98 100 Oximetry 01/24/21 01/24/21 01/24/21 07:15 07:30 07:45 Temperature Pulse Rate 95 H 94 H 92 H Pulse Rate [ From Monitor] Respiratory 17 16 16 Rate Blood Pressure 113/66 107/62 107/62 O2 Sat by Pulse 99 99 99 Oximetry 01/24/21 01/24/21 01/24/21 08:00 08:15 08:30 Temperature 98 F Pulse Rate 92 H 93 H 95 H Pulse Rate [ 94 H From Monitor] Respiratory 21 23 21 Rate Blood Pressure 98/63 98/63 107/66 O2 Sat by Pulse 100 100 98 Oximetry 01/24/21 01/24/21 08:45 09:01 Temperature Pulse Rate 89 95 H Pulse Rate [ From Monitor] Respiratory 26 H 27 H Rate Blood Pressure 107/66 119/48 O2 Sat by Pulse 98 99 Oximetry Constitutional: alert, other (intubated, awake, alert) Eyes: non-icteric ENT: oropharynx moist Neck: supple Effort: normal Ascultation: Bilateral: clear, other (coarse BS bilaterally) Cardiovascular: regular rate and rhythm (no mrg) Gastrointestinal: soft, non-distended, other (binder in place) Integumentary: normal Extremities: no cyanosis, no edema, pink and warm Neurologic: normal mental status, non-focal exam Psychiatric: mood appropriate, affect normal CBC and BMP: 01/22/21 10:08 01/24/21 08:42 ABG, PT/INR, D-dimer: ABG ABG pH 7.512 (7.320-7.450) H 01/19/21 05:00 POC ABG pCO2 32.5 mmHg (32.0-48.0) 01/19/21 05:00 ABG pCO2 37.9 mm Hg 01/05/21 03:50 POC ABG pO2 47.8 mmHg (83-108) L 01/19/21 05:00 ABG pO2 136.8 mm Hg (80.0-90.0) H 01/05/21 03:50 POC ABG HCO3 25.5 01/19/21 05:00 ABG O2 Saturation 84.4 (0-100) 01/19/21 05:00 PT/INR, D-dimer PT 15.4 Sec. (12.2-14.9) H 01/10/21 04:01 INR 1.17 (0.87-1.13) H 01/10/21 04:01 Abnormal lab findings: Abnormal Labs 12/20/20 12/20/20 12/20/20 13:58 13:58 13:58 WBC 41.1 H* RBC 5.59 H Hgb 16.2 H Hct 47.7 H MCV MCHC RDW 15.5 H Plt Count 486 H Lymph % (Auto) Eos % (Auto) Lymph # (Auto) Eos # (Auto) Seg Neutrophils % Seg Neuts % (Manual) Lymphocytes % (Manual) Seg Neutrophils # Seg Neutrophils # Man Lymphocytes # (Manual) Monocytes # (Manual) PT INR APTT Fibrinogen ABG pH POC ABG pCO2 POC ABG pO2 ABG pO2 ABG Base Excess ABG Hemoglobin ABG Oxyhemoglobin ABG Sodium ABG Potassium ABG Chloride ABG Glucose Carboxyhemoglobin Sodium 130 L Potassium Chloride 80.7 L Carbon Dioxide BUN 37 H Creatinine Glucose 101 H POC Glucose Lactic Acid 3.20 H* Calcium Ionized Calcium Phosphorus Magnesium AST Alkaline Phosphatase 142 H C-Reactive Protein Total Protein 6.2 L Albumin 2.2 L Triglycerides Arterial Blood Glucose Arterial Blood Ionized Calcium Urine WBC (Auto) Urine Creatinine Crossmatch 12/20/20 12/20/20 12/20/20 13:58 20:35 21:30 WBC RBC Hgb Hct MCV MCHC RDW Plt Count Lymph % (Auto) Eos % (Auto) Lymph # (Auto) Eos # (Auto) Seg Neutrophils % Seg Neuts % (Manual) Lymphocytes % (Manual) Seg Neutrophils # Seg Neutrophils # Man Lymphocytes # (Manual) Monocytes # (Manual) PT INR APTT 49.4 H Fibrinogen ABG pH 7.313 L POC ABG pCO2 POC ABG pO2 ABG pO2 104.4 H ABG Base Excess ABG Hemoglobin ABG Oxyhemoglobin ABG Sodium ABG Potassium ABG Chloride ABG Glucose Carboxyhemoglobin Sodium Potassium Chloride Carbon Dioxide BUN Creatinine Glucose POC Glucose 122 H Lactic Acid Calcium Ionized Calcium Phosphorus Magnesium AST Alkaline Phosphatase C-Reactive Protein Total Protein Albumin Triglycerides Arterial Blood Glucose Arterial Blood Ionized Calcium Urine WBC (Auto) Urine Creatinine Crossmatch 12/21/20 12/21/20 12/21/20 03:06 08:14 08:14 WBC 23.9 H RBC Hgb Hct MCV MCHC RDW 15.7 H Plt Count Lymph % (Auto) Eos % (Auto) Lymph # (Auto) Eos # (Auto) Seg Neutrophils % Seg Neuts % (Manual) 91.0 H Lymphocytes % (Manual) 3.0 L Seg Neutrophils # Seg Neutrophils # Man 21.7 H Lymphocytes # (Manual) 0.7 L Monocytes # (Manual) 1.4 H PT INR APTT Fibrinogen ABG pH 7.464 H POC ABG pCO2 POC ABG pO2 202.9 H ABG pO2 ABG Base Excess ABG Hemoglobin ABG Oxyhemoglobin ABG Sodium 133.7 L ABG Potassium ABG Chloride ABG Glucose 122 H Carboxyhemoglobin Sodium Potassium Chloride Carbon Dioxide BUN 46 H Creatinine Glucose 103 H POC Glucose Lactic Acid Calcium 6.6 L D Ionized Calcium Phosphorus Magnesium AST Alkaline Phosphatase C-Reactive Protein Total Protein 5.4 L Albumin 2.3 L Triglycerides Arterial Blood Glucose 122 H Arterial Blood Ionized Calcium 3.5 L Urine WBC (Auto) Urine Creatinine Crossmatch 12/21/20 12/21/20 12/22/20 17:18 21:28 04:45 WBC 22.9 H RBC Hgb Hct MCV MCHC RDW 15.7 H Plt Count Lymph % (Auto) Eos % (Auto) Lymph # (Auto) Eos # (Auto) Seg Neutrophils % Seg Neuts % (Manual) Lymphocytes % (Manual) Seg Neutrophils # Seg Neutrophils # Man Lymphocytes # (Manual) Monocytes # (Manual) PT INR APTT Fibrinogen ABG pH POC ABG pCO2 POC ABG pO2 ABG pO2 ABG Base Excess ABG Hemoglobin ABG Oxyhemoglobin ABG Sodium ABG Potassium ABG Chloride ABG Glucose Carboxyhemoglobin Sodium Potassium Chloride Carbon Dioxide BUN Creatinine Glucose POC Glucose 108 H Lactic Acid Calcium Ionized Calcium 4.1 L Phosphorus Magnesium AST Alkaline Phosphatase C-Reactive Protein Total Protein Albumin Triglycerides Arterial Blood Glucose Arterial Blood Ionized Calcium Urine WBC (Auto) Urine Creatinine Crossmatch 12/22/20 12/22/20 12/22/20 04:45 05:00 11:38 WBC RBC Hgb Hct MCV MCHC RDW Plt Count Lymph % (Auto) Eos % (Auto) Lymph # (Auto) Eos # (Auto) Seg Neutrophils % Seg Neuts % (Manual) Lymphocytes % (Manual) Seg Neutrophils # Seg Neutrophils # Man Lymphocytes # (Manual) Monocytes # (Manual) PT INR APTT Fibrinogen ABG pH 7.462 H POC ABG pCO2 POC ABG pO2 ABG pO2 ABG Base Excess ABG Hemoglobin ABG Oxyhemoglobin ABG Sodium ABG Potassium ABG Chloride ABG Glucose 118 H Carboxyhemoglobin Sodium 146 H Potassium Chloride Carbon Dioxide BUN 45 H Creatinine Glucose 116 H POC Glucose 115 H Lactic Acid Calcium 6.9 L Ionized Calcium Phosphorus Magnesium AST Alkaline Phosphatase C-Reactive Protein Total Protein Albumin Triglycerides Arterial Blood Glucose 118 H Arterial Blood Ionized Calcium 3.8 L Urine WBC (Auto) Urine Creatinine Crossmatch 12/22/20 12/23/20 12/23/20 23:26 04:43 04:45 WBC 22.2 H RBC Hgb Hct MCV MCHC RDW 16.1 H Plt Count Lymph % (Auto) Eos % (Auto) Lymph # (Auto) Eos # (Auto) Seg Neutrophils % Seg Neuts % (Manual) Lymphocytes % (Manual) Seg Neutrophils # Seg Neutrophils # Man Lymphocytes # (Manual) Monocytes # (Manual) PT INR APTT Fibrinogen ABG pH POC ABG pCO2 POC ABG pO2 ABG pO2 ABG Base Excess ABG Hemoglobin ABG Oxyhemoglobin ABG Sodium 147.4 H ABG Potassium ABG Chloride 112.0 H ABG Glucose 130 H Carboxyhemoglobin 0.4 L Sodium Potassium Chloride Carbon Dioxide BUN Creatinine Glucose POC Glucose 110 H Lactic Acid Calcium Ionized Calcium Phosphorus Magnesium AST Alkaline Phosphatase C-Reactive Protein Total Protein Albumin Triglycerides Arterial Blood Glucose 130 H Arterial Blood Ionized Calcium 3.8 L Urine WBC (Auto) Urine Creatinine Crossmatch 12/23/20 12/23/20 12/23/20 04:45 05:17 11:22 WBC RBC Hgb Hct MCV MCHC RDW Plt Count Lymph % (Auto) Eos % (Auto) Lymph # (Auto) Eos # (Auto) Seg Neutrophils % Seg Neuts % (Manual) Lymphocytes % (Manual) Seg Neutrophils # Seg Neutrophils # Man Lymphocytes # (Manual) Monocytes # (Manual) PT INR APTT Fibrinogen ABG pH POC ABG pCO2 POC ABG pO2 ABG pO2 ABG Base Excess ABG Hemoglobin ABG Oxyhemoglobin ABG Sodium ABG Potassium ABG Chloride ABG Glucose Carboxyhemoglobin Sodium 154 H D Potassium Chloride 110.9 H Carbon Dioxide BUN 54 H Creatinine 1.8 H Glucose 115 H POC Glucose 116 H 130 H Lactic Acid Calcium 7.0 L Ionized Calcium Phosphorus Magnesium AST Alkaline Phosphatase C-Reactive Protein Total Protein Albumin Triglycerides Arterial Blood Glucose Arterial Blood Ionized Calcium Urine WBC (Auto) Urine Creatinine Crossmatch 12/23/20 12/23/20 12/23/20 12:15 12:15 23:15 WBC RBC Hgb Hct MCV MCHC RDW Plt Count Lymph % (Auto) Eos % (Auto) Lymph # (Auto) Eos # (Auto) Seg Neutrophils % Seg Neuts % (Manual) Lymphocytes % (Manual) Seg Neutrophils # Seg Neutrophils # Man Lymphocytes # (Manual) Monocytes # (Manual) PT INR APTT Fibrinogen ABG pH POC ABG pCO2 POC ABG pO2 ABG pO2 ABG Base Excess ABG Hemoglobin ABG Oxyhemoglobin ABG Sodium ABG Potassium ABG Chloride ABG Glucose Carboxyhemoglobin Sodium 154 H Potassium Chloride Carbon Dioxide BUN Creatinine 1.5 H Glucose POC Glucose 132 H Lactic Acid Calcium Ionized Calcium Phosphorus Magnesium AST Alkaline Phosphatase C-Reactive Protein Total Protein Albumin Triglycerides Arterial Blood Glucose Arterial Blood Ionized Calcium Urine WBC (Auto) Urine Creatinine 78.1 H Crossmatch 12/24/20 12/24/20 12/24/20 04:19 04:30 04:30 WBC 18.3 H RBC Hgb Hct MCV MCHC RDW 16.5 H Plt Count Lymph % (Auto) Eos % (Auto) Lymph # (Auto) Eos # (Auto) Seg Neutrophils % Seg Neuts % (Manual) Lymphocytes % (Manual) Seg Neutrophils # Seg Neutrophils # Man Lymphocytes # (Manual) Monocytes # (Manual) PT INR APTT Fibrinogen ABG pH POC ABG pCO2 POC ABG pO2 ABG pO2 ABG Base Excess ABG Hemoglobin ABG Oxyhemoglobin ABG Sodium 149.7 H ABG Potassium ABG Chloride 116.0 H ABG Glucose 180 H Carboxyhemoglobin Sodium 155 H Potassium Chloride 116.1 H Carbon Dioxide BUN 52 H Creatinine 1.5 H Glucose 175 H POC Glucose Lactic Acid Calcium 6.8 L Ionized Calcium Phosphorus Magnesium 3.00 H AST Alkaline Phosphatase C-Reactive Protein Total Protein 5.7 L Albumin 1.8 L Triglycerides Arterial Blood Glucose 180 H Arterial Blood Ionized Calcium 3.7 L Urine WBC (Auto) Urine Creatinine Crossmatch 12/24/20 12/24/20 12/24/20 05:24 11:21 18:05 WBC RBC Hgb Hct MCV MCHC RDW Plt Count Lymph % (Auto) Eos % (Auto) Lymph # (Auto) Eos # (Auto) Seg Neutrophils % Seg Neuts % (Manual) Lymphocytes % (Manual) Seg Neutrophils # Seg Neutrophils # Man Lymphocytes # (Manual) Monocytes # (Manual) PT INR APTT Fibrinogen ABG pH POC ABG pCO2 POC ABG pO2 ABG pO2 ABG Base Excess ABG Hemoglobin ABG Oxyhemoglobin ABG Sodium ABG Potassium ABG Chloride ABG Glucose Carboxyhemoglobin Sodium Potassium Chloride Carbon Dioxide BUN Creatinine Glucose POC Glucose 153 H 154 H 133 H Lactic Acid Calcium Ionized Calcium Phosphorus Magnesium AST Alkaline Phosphatase C-Reactive Protein Total Protein Albumin Triglycerides Arterial Blood Glucose Arterial Blood Ionized Calcium Urine WBC (Auto) Urine Creatinine Crossmatch 12/25/20 12/25/20 12/25/20 04:00 07:00 07:00 WBC 17.6 H RBC Hgb Hct MCV MCHC 31 L RDW 16.0 H Plt Count Lymph % (Auto) Eos % (Auto) Lymph # (Auto) Eos # (Auto) Seg Neutrophils % Seg Neuts % (Manual) Lymphocytes % (Manual) Seg Neutrophils # Seg Neutrophils # Man Lymphocytes # (Manual) Monocytes # (Manual) PT INR APTT Fibrinogen ABG pH POC ABG pCO2 POC ABG pO2 ABG pO2 ABG Base Excess ABG Hemoglobin ABG Oxyhemoglobin ABG Sodium 152.5 H ABG Potassium ABG Chloride 119.0 H ABG Glucose 136 H Carboxyhemoglobin Sodium Potassium Chloride Carbon Dioxide BUN Creatinine Glucose POC Glucose Lactic Acid Calcium Ionized Calcium Phosphorus Magnesium 2.70 H AST Alkaline Phosphatase C-Reactive Protein Total Protein Albumin Triglycerides Arterial Blood Glucose 136 H Arterial Blood Ionized Calcium 3.7 L Urine WBC (Auto) Urine Creatinine Crossmatch 12/25/20 12/25/20 12/25/20 07:00 11:24 16:32 WBC RBC Hgb Hct MCV MCHC RDW Plt Count Lymph % (Auto) Eos % (Auto) Lymph # (Auto) Eos # (Auto) Seg Neutrophils % Seg Neuts % (Manual) Lymphocytes % (Manual) Seg Neutrophils # Seg Neutrophils # Man Lymphocytes # (Manual) Monocytes # (Manual) PT INR APTT Fibrinogen ABG pH POC ABG pCO2 POC ABG pO2 ABG pO2 ABG Base Excess ABG Hemoglobin ABG Oxyhemoglobin ABG Sodium ABG Potassium ABG Chloride ABG Glucose Carboxyhemoglobin Sodium 156 H Potassium Chloride 118.0 H Carbon Dioxide BUN 44 H Creatinine 1.7 H Glucose 126 H POC Glucose 110 H 126 H Lactic Acid Calcium 6.9 L Ionized Calcium Phosphorus Magnesium AST Alkaline Phosphatase C-Reactive Protein Total Protein Albumin Triglycerides Arterial Blood Glucose Arterial Blood Ionized Calcium Urine WBC (Auto) Urine Creatinine Crossmatch 12/25/20 12/25/20 12/26/20 18:18 23:23 03:30 WBC RBC Hgb Hct MCV MCHC RDW Plt Count Lymph % (Auto) Eos % (Auto) Lymph # (Auto) Eos # (Auto) Seg Neutrophils % Seg Neuts % (Manual) Lymphocytes % (Manual) Seg Neutrophils # Seg Neutrophils # Man Lymphocytes # (Manual) Monocytes # (Manual) PT INR APTT Fibrinogen ABG pH POC ABG pCO2 POC ABG pO2 ABG pO2 ABG Base Excess ABG Hemoglobin 11.8 L ABG Oxyhemoglobin ABG Sodium ABG Potassium 4.7 H ABG Chloride 114.0 H ABG Glucose 132 H Carboxyhemoglobin Sodium 151 H Potassium Chloride 114.3 H Carbon Dioxide BUN 51 H Creatinine 2.6 H D Glucose 122 H POC Glucose 115 H Lactic Acid Calcium 6.4 L Ionized Calcium Phosphorus Magnesium AST Alkaline Phosphatase C-Reactive Protein Total Protein Albumin Triglycerides Arterial Blood Glucose 132 H Arterial Blood Ionized Calcium 3.6 L Urine WBC (Auto) Urine Creatinine Crossmatch 12/26/20 12/26/20 12/26/20 04:55 06:01 06:01 WBC 21.6 H RBC Hgb Hct MCV MCHC 31 L RDW 16.5 H Plt Count 136 L Lymph % (Auto) Eos % (Auto) Lymph # (Auto) Eos # (Auto) Seg Neutrophils % Seg Neuts % (Manual) Lymphocytes % (Manual) Seg Neutrophils # Seg Neutrophils # Man Lymphocytes # (Manual) Monocytes # (Manual) PT INR APTT Fibrinogen ABG pH POC ABG pCO2 POC ABG pO2 ABG pO2 ABG Base Excess ABG Hemoglobin ABG Oxyhemoglobin ABG Sodium ABG Potassium ABG Chloride ABG Glucose Carboxyhemoglobin Sodium 173 H* D Potassium 6.1 H* D Chloride 137.0 H Carbon Dioxide BUN 73 H Creatinine 3.8 H Glucose 125 H POC Glucose 112 H Lactic Acid Calcium 6.2 L Ionized Calcium Phosphorus 5.70 H D Magnesium 2.90 H AST Alkaline Phosphatase C-Reactive Protein Total Protein Albumin Triglycerides Arterial Blood Glucose Arterial Blood Ionized Calcium Urine WBC (Auto) Urine Creatinine Crossmatch 12/26/20 12/26/20 12/26/20 08:33 11:19 22:00 WBC RBC Hgb Hct MCV MCHC RDW Plt Count Lymph % (Auto) Eos % (Auto) Lymph # (Auto) Eos # (Auto) Seg Neutrophils % Seg Neuts % (Manual) Lymphocytes % (Manual) Seg Neutrophils # Seg Neutrophils # Man Lymphocytes # (Manual) Monocytes # (Manual) PT INR APTT Fibrinogen ABG pH POC ABG pCO2 POC ABG pO2 ABG pO2 ABG Base Excess ABG Hemoglobin ABG Oxyhemoglobin ABG Sodium ABG Potassium ABG Chloride ABG Glucose Carboxyhemoglobin Sodium 147 H D Potassium 5.8 H D Chloride 108.8 H Carbon Dioxide 21 L BUN 68 H 68 H Creatinine 3.8 H 4.1 H Glucose 144 H 154 H POC Glucose 144 H Lactic Acid Calcium 6.5 L 5.8 L* Ionized Calcium Phosphorus Magnesium AST 215 H Alkaline Phosphatase C-Reactive Protein Total Protein 4.7 L Albumin 1.5 L Triglycerides Arterial Blood Glucose Arterial Blood Ionized Calcium Urine WBC (Auto) Urine Creatinine Crossmatch 12/26/20 12/26/20 12/27/20 23:13 Unknown 00:25 WBC RBC Hgb 11.1 L Hct MCV MCHC RDW Plt Count Lymph % (Auto) Eos % (Auto) Lymph # (Auto) Eos # (Auto) Seg Neutrophils % Seg Neuts % (Manual) Lymphocytes % (Manual) Seg Neutrophils # Seg Neutrophils # Man Lymphocytes # (Manual) Monocytes # (Manual) PT INR APTT Fibrinogen ABG pH POC ABG pCO2 POC ABG pO2 ABG pO2 ABG Base Excess ABG Hemoglobin ABG Oxyhemoglobin ABG Sodium ABG Potassium ABG Chloride ABG Glucose Carboxyhemoglobin Sodium Potassium Chloride Carbon Dioxide BUN Creatinine Glucose POC Glucose 163 H Lactic Acid Calcium Ionized Calcium Phosphorus 5.60 H Magnesium AST Alkaline Phosphatase C-Reactive Protein Total Protein Albumin Triglycerides Arterial Blood Glucose Arterial Blood Ionized Calcium Urine WBC (Auto) Urine Creatinine Crossmatch 12/27/20 12/27/20 12/27/20 02:57 04:15 04:15 WBC 28.5 H RBC Hgb 11.2 L Hct MCV MCHC 31 L RDW 16.5 H Plt Count 130 L Lymph % (Auto) Eos % (Auto) Lymph # (Auto) Eos # (Auto) Seg Neutrophils % Seg Neuts % (Manual) Lymphocytes % (Manual) Seg Neutrophils # Seg Neutrophils # Man Lymphocytes # (Manual) Monocytes # (Manual) PT INR APTT Fibrinogen ABG pH 7.238 L POC ABG pCO2 POC ABG pO2 139.1 H ABG pO2 ABG Base Excess ABG Hemoglobin 11.2 L ABG Oxyhemoglobin ABG Sodium 133.8 L ABG Potassium 5.2 H ABG Chloride ABG Glucose 182 H Carboxyhemoglobin Sodium 136 L Potassium 6.0 H Chloride Carbon Dioxide 18 L BUN 68 H Creatinine 4.1 H Glucose 166 H POC Glucose Lactic Acid Calcium 6.2 L Ionized Calcium Phosphorus 7.30 H D Magnesium AST Alkaline Phosphatase C-Reactive Protein Total Protein Albumin Triglycerides 164 H Arterial Blood Glucose 182 H Arterial Blood Ionized Calcium 3.4 L Urine WBC (Auto) Urine Creatinine Crossmatch 12/27/20 12/27/20 12/27/20 04:50 10:51 11:17 WBC RBC Hgb Hct MCV MCHC RDW Plt Count Lymph % (Auto) Eos % (Auto) Lymph # (Auto) Eos # (Auto) Seg Neutrophils % Seg Neuts % (Manual) Lymphocytes % (Manual) Seg Neutrophils # Seg Neutrophils # Man Lymphocytes # (Manual) Monocytes # (Manual) PT INR APTT Fibrinogen ABG pH POC ABG pCO2 POC ABG pO2 ABG pO2 ABG Base Excess ABG Hemoglobin ABG Oxyhemoglobin ABG Sodium ABG Potassium ABG Chloride ABG Glucose Carboxyhemoglobin Sodium Potassium Chloride Carbon Dioxide BUN Creatinine Glucose POC Glucose 140 H 113 H 154 H Lactic Acid Calcium Ionized Calcium Phosphorus Magnesium AST Alkaline Phosphatase C-Reactive Protein Total Protein Albumin Triglycerides Arterial Blood Glucose Arterial Blood Ionized Calcium Urine WBC (Auto) Urine Creatinine Crossmatch 12/27/20 12/27/20 12/27/20 12:40 14:40 23:17 WBC RBC Hgb Hct MCV MCHC RDW Plt Count Lymph % (Auto) Eos % (Auto) Lymph # (Auto) Eos # (Auto) Seg Neutrophils % Seg Neuts % (Manual) Lymphocytes % (Manual) Seg Neutrophils # Seg Neutrophils # Man Lymphocytes # (Manual) Monocytes # (Manual) PT INR APTT Fibrinogen ABG pH POC ABG pCO2 POC ABG pO2 ABG pO2 ABG Base Excess ABG Hemoglobin ABG Oxyhemoglobin ABG Sodium ABG Potassium ABG Chloride ABG Glucose Carboxyhemoglobin Sodium 135 L Potassium Chloride Carbon Dioxide 21 L BUN 62 H Creatinine 3.8 H Glucose 132 H POC Glucose 130 H Lactic Acid Calcium 5.6 L* Ionized Calcium 3.3 L Phosphorus Magnesium AST Alkaline Phosphatase C-Reactive Protein Total Protein Albumin Triglycerides Arterial Blood Glucose Arterial Blood Ionized Calcium Urine WBC (Auto) Urine Creatinine Crossmatch 12/28/20 12/28/20 12/28/20 05:36 07:08 07:28 WBC 27.2 H RBC 3.50 L Hgb 9.6 L Hct 30.8 L MCV MCHC 31 L RDW 16.1 H Plt Count 111 L Lymph % (Auto) Eos % (Auto) Lymph # (Auto) Eos # (Auto) Seg Neutrophils % Seg Neuts % (Manual) 95.0 H Lymphocytes % (Manual) Seg Neutrophils # Seg Neutrophils # Man 25.8 H Lymphocytes # (Manual) 0.0 L Monocytes # (Manual) 1.1 H PT INR APTT Fibrinogen ABG pH 7.200 L POC ABG pCO2 POC ABG pO2 67.2 L ABG pO2 ABG Base Excess ABG Hemoglobin 10.3 L ABG Oxyhemoglobin 89.6 L ABG Sodium 127.8 L ABG Potassium 5.1 H ABG Chloride ABG Glucose 132 H Carboxyhemoglobin 0.4 L Sodium Potassium Chloride Carbon Dioxide BUN Creatinine Glucose POC Glucose 128 H Lactic Acid Calcium Ionized Calcium Phosphorus Magnesium AST Alkaline Phosphatase C-Reactive Protein Total Protein Albumin Triglycerides Arterial Blood Glucose 132 H Arterial Blood Ionized Calcium 3.5 L Urine WBC (Auto) Urine Creatinine Crossmatch 12/28/20 12/28/20 12/28/20 07:28 11:37 13:25 WBC RBC Hgb Hct MCV MCHC RDW Plt Count Lymph % (Auto) Eos % (Auto) Lymph # (Auto) Eos # (Auto) Seg Neutrophils % Seg Neuts % (Manual) Lymphocytes % (Manual) Seg Neutrophils # Seg Neutrophils # Man Lymphocytes # (Manual) Monocytes # (Manual) PT INR APTT Fibrinogen ABG pH POC ABG pCO2 POC ABG pO2 ABG pO2 ABG Base Excess ABG Hemoglobin ABG Oxyhemoglobin ABG Sodium ABG Potassium ABG Chloride ABG Glucose Carboxyhemoglobin Sodium 131 L 133 L Potassium 5.9 H 5.1 H Chloride 97.1 L Carbon Dioxide 15 L 21 L BUN 70 H 77 H Creatinine 4.0 H 4.4 H Glucose 118 H 140 H POC Glucose 135 H Lactic Acid Calcium 6.3 L 6.3 L Ionized Calcium Phosphorus 7.10 H Magnesium AST 144 H Alkaline Phosphatase C-Reactive Protein Total Protein 4.8 L Albumin 1.3 L Triglycerides Arterial Blood Glucose Arterial Blood Ionized Calcium Urine WBC (Auto) Urine Creatinine Crossmatch 12/28/20 12/28/20 12/29/20 16:38 23:28 03:08 WBC RBC Hgb Hct MCV MCHC RDW Plt Count Lymph % (Auto) Eos % (Auto) Lymph # (Auto) Eos # (Auto) Seg Neutrophils % Seg Neuts % (Manual) Lymphocytes % (Manual) Seg Neutrophils # Seg Neutrophils # Man Lymphocytes # (Manual) Monocytes # (Manual) PT INR APTT Fibrinogen ABG pH 7.301 L POC ABG pCO2 POC ABG pO2 151.1 H ABG pO2 ABG Base Excess ABG Hemoglobin 8.7 L ABG Oxyhemoglobin 98.2 H ABG Sodium 123.4 L ABG Potassium ABG Chloride 97.0 L ABG Glucose 144 H Carboxyhemoglobin Sodium Potassium Chloride Carbon Dioxide BUN Creatinine Glucose POC Glucose 140 H 134 H Lactic Acid Calcium Ionized Calcium Phosphorus Magnesium AST Alkaline Phosphatase C-Reactive Protein Total Protein Albumin Triglycerides Arterial Blood Glucose 144 H Arterial Blood Ionized Calcium 3.4 L Urine WBC (Auto) Urine Creatinine Crossmatch 12/29/20 12/29/20 12/29/20 05:20 05:20 06:01 WBC 21.0 H RBC 2.89 L Hgb 8.1 L Hct 25.5 L MCV MCHC RDW 16.1 H Plt Count 124 L Lymph % (Auto) Eos % (Auto) Lymph # (Auto) Eos # (Auto) Seg Neutrophils % Seg Neuts % (Manual) Lymphocytes % (Manual) Seg Neutrophils # Seg Neutrophils # Man Lymphocytes # (Manual) Monocytes # (Manual) PT INR APTT Fibrinogen ABG pH POC ABG pCO2 POC ABG pO2 ABG pO2 ABG Base Excess ABG Hemoglobin ABG Oxyhemoglobin ABG Sodium ABG Potassium ABG Chloride ABG Glucose Carboxyhemoglobin Sodium 131 L Potassium Chloride 93.4 L Carbon Dioxide BUN 79 H Creatinine 4.7 H Glucose 122 H POC Glucose 108 H Lactic Acid Calcium 5.5 L* Ionized Calcium Phosphorus 5.70 H Magnesium 1.60 L AST Alkaline Phosphatase C-Reactive Protein Total Protein Albumin Triglycerides Arterial Blood Glucose Arterial Blood Ionized Calcium Urine WBC (Auto) Urine Creatinine Crossmatch 12/29/20 12/29/20 12/29/20 10:04 11:27 17:31 WBC RBC Hgb Hct MCV MCHC RDW Plt Count Lymph % (Auto) Eos % (Auto) Lymph # (Auto) Eos # (Auto) Seg Neutrophils % Seg Neuts % (Manual) Lymphocytes % (Manual) Seg Neutrophils # Seg Neutrophils # Man Lymphocytes # (Manual) Monocytes # (Manual) PT INR APTT Fibrinogen ABG pH POC ABG pCO2 POC ABG pO2 ABG pO2 ABG Base Excess ABG Hemoglobin ABG Oxyhemoglobin ABG Sodium ABG Potassium ABG Chloride ABG Glucose Carboxyhemoglobin Sodium Potassium Chloride Carbon Dioxide BUN Creatinine Glucose POC Glucose 107 H 112 H 110 H Lactic Acid Calcium Ionized Calcium Phosphorus Magnesium AST Alkaline Phosphatase C-Reactive Protein Total Protein Albumin Triglycerides Arterial Blood Glucose Arterial Blood Ionized Calcium Urine WBC (Auto) Urine Creatinine Crossmatch 12/30/20 12/30/20 12/30/20 03:31 08:06 17:39 WBC RBC Hgb Hct MCV MCHC RDW Plt Count Lymph % (Auto) Eos % (Auto) Lymph # (Auto) Eos # (Auto) Seg Neutrophils % Seg Neuts % (Manual) Lymphocytes % (Manual) Seg Neutrophils # Seg Neutrophils # Man Lymphocytes # (Manual) Monocytes # (Manual) PT INR APTT Fibrinogen ABG pH 7.261 L POC ABG pCO2 POC ABG pO2 123.1 H ABG pO2 ABG Base Excess ABG Hemoglobin 8.7 L ABG Oxyhemoglobin ABG Sodium 123.2 L ABG Potassium ABG Chloride 96.0 L ABG Glucose 112 H Carboxyhemoglobin Sodium 128 L Potassium Chloride 90.7 L Carbon Dioxide 21 L BUN 86 H Creatinine 4.9 H Glucose 107 H POC Glucose 134 H Lactic Acid Calcium 6.2 L Ionized Calcium Phosphorus 5.30 H Magnesium 1.50 L AST Alkaline Phosphatase C-Reactive Protein Total Protein Albumin Triglycerides Arterial Blood Glucose 112 H Arterial Blood Ionized Calcium 3.2 L Urine WBC (Auto) Urine Creatinine Crossmatch 12/30/20 12/31/20 12/31/20 22:45 02:14 04:40 WBC RBC Hgb Hct MCV MCHC RDW Plt Count Lymph % (Auto) Eos % (Auto) Lymph # (Auto) Eos # (Auto) Seg Neutrophils % Seg Neuts % (Manual) Lymphocytes % (Manual) Seg Neutrophils # Seg Neutrophils # Man Lymphocytes # (Manual) Monocytes # (Manual) PT INR APTT Fibrinogen ABG pH 7.267 L POC ABG pCO2 POC ABG pO2 ABG pO2 ABG Base Excess ABG Hemoglobin 8.0 L ABG Oxyhemoglobin 93.7 L ABG Sodium ABG Potassium ABG Chloride 95.0 L ABG Glucose 108 H Carboxyhemoglobin 1.7 H Sodium 126 L Potassium Chloride 90.3 L Carbon Dioxide 20 L BUN 70 H Creatinine 4.3 H Glucose 209 H POC Glucose 109 H Lactic Acid Calcium 6.6 L Ionized Calcium Phosphorus 4.70 H Magnesium 1.60 L AST Alkaline Phosphatase C-Reactive Protein Total Protein Albumin Triglycerides 157 H Arterial Blood Glucose 108 H Arterial Blood Ionized Calcium 3.7 L Urine WBC (Auto) Urine Creatinine Crossmatch 12/31/20 12/31/20 01/01/21 16:23 23:21 04:00 WBC 18.0 H RBC 2.75 L Hgb 7.7 L Hct 23.9 L MCV MCHC RDW 15.6 H Plt Count Lymph % (Auto) Eos % (Auto) Lymph # (Auto) Eos # (Auto) Seg Neutrophils % Seg Neuts % (Manual) 91.0 H Lymphocytes % (Manual) 6.0 L Seg Neutrophils # Seg Neutrophils # Man 16.4 H Lymphocytes # (Manual) 1.1 L Monocytes # (Manual) PT INR APTT Fibrinogen ABG pH 7.264 L POC ABG pCO2 POC ABG pO2 74.8 L ABG pO2 ABG Base Excess ABG Hemoglobin 7.1 L ABG Oxyhemoglobin 92.1 L ABG Sodium 124.9 L ABG Potassium ABG Chloride 95.0 L ABG Glucose 111 H Carboxyhemoglobin 1.7 H Sodium Potassium Chloride Carbon Dioxide BUN Creatinine Glucose POC Glucose 125 H Lactic Acid Calcium Ionized Calcium Phosphorus Magnesium AST Alkaline Phosphatase C-Reactive Protein Total Protein Albumin Triglycerides Arterial Blood Glucose 111 H Arterial Blood Ionized Calcium 4.0 L Urine WBC (Auto) Urine Creatinine Crossmatch 01/01/21 01/01/21 01/01/21 05:50 13:41 15:55 WBC RBC Hgb Hct MCV MCHC RDW Plt Count Lymph % (Auto) Eos % (Auto) Lymph # (Auto) Eos # (Auto) Seg Neutrophils % Seg Neuts % (Manual) Lymphocytes % (Manual) Seg Neutrophils # Seg Neutrophils # Man Lymphocytes # (Manual) Monocytes # (Manual) PT INR APTT Fibrinogen ABG pH 7.148 L 7.207 L POC ABG pCO2 53.1 H POC ABG pO2 57.3 L 138.4 H ABG pO2 ABG Base Excess ABG Hemoglobin 9.0 L 8.3 L ABG Oxyhemoglobin 83.2 L ABG Sodium 126.2 L 124.5 L ABG Potassium ABG Chloride 95.0 L 95.0 L ABG Glucose 96 H 120 H Carboxyhemoglobin Sodium 131 L Potassium Chloride 93.3 L Carbon Dioxide 21 L BUN 67 H Creatinine 4.2 H Glucose POC Glucose Lactic Acid Calcium 7.1 L Ionized Calcium Phosphorus Magnesium AST 60 H Alkaline Phosphatase C-Reactive Protein Total Protein 4.8 L Albumin 1.4 L Triglycerides Arterial Blood Glucose 96 H 120 H Arterial Blood Ionized Calcium 4.1 L 3.9 L Urine WBC (Auto) Urine Creatinine Crossmatch 01/01/21 01/01/21 01/02/21 17:09 23:24 03:47 WBC RBC Hgb Hct MCV MCHC RDW Plt Count Lymph % (Auto) Eos % (Auto) Lymph # (Auto) Eos # (Auto) Seg Neutrophils % Seg Neuts % (Manual) Lymphocytes % (Manual) Seg Neutrophils # Seg Neutrophils # Man Lymphocytes # (Manual) Monocytes # (Manual) PT INR APTT Fibrinogen ABG pH 7.276 L POC ABG pCO2 POC ABG pO2 173.6 H ABG pO2 ABG Base Excess ABG Hemoglobin 7 L ABG Oxyhemoglobin ABG Sodium 122.4 L ABG Potassium ABG Chloride 94.0 L ABG Glucose 118 H Carboxyhemoglobin Sodium Potassium Chloride Carbon Dioxide BUN Creatinine Glucose POC Glucose 124 H 119 H Lactic Acid Calcium Ionized Calcium Phosphorus Magnesium AST Alkaline Phosphatase C-Reactive Protein Total Protein Albumin Triglycerides Arterial Blood Glucose 118 H Arterial Blood Ionized Calcium 4.0 L Urine WBC (Auto) Urine Creatinine Crossmatch 01/02/21 01/02/21 01/02/21 05:33 08:00 08:00 WBC 19.7 H RBC 2.53 L Hgb 7.1 L Hct 22.0 L MCV MCHC RDW 16.4 H Plt Count Lymph % (Auto) Eos % (Auto) Lymph # (Auto) Eos # (Auto) Seg Neutrophils % Seg Neuts % (Manual) Lymphocytes % (Manual) Seg Neutrophils # Seg Neutrophils # Man Lymphocytes # (Manual) Monocytes # (Manual) PT INR APTT Fibrinogen ABG pH POC ABG pCO2 POC ABG pO2 ABG pO2 ABG Base Excess ABG Hemoglobin ABG Oxyhemoglobin ABG Sodium ABG Potassium ABG Chloride ABG Glucose Carboxyhemoglobin Sodium 127 L Potassium Chloride 89.3 L Carbon Dioxide 19 L BUN 82 H Creatinine 5.0 H Glucose 103 H POC Glucose 107 H Lactic Acid Calcium 7.8 L Ionized Calcium Phosphorus 6.40 H Magnesium AST 47 H Alkaline Phosphatase C-Reactive Protein Total Protein 5.0 L Albumin 1.6 L Triglycerides Arterial Blood Glucose Arterial Blood Ionized Calcium Urine WBC (Auto) Urine Creatinine Crossmatch 01/02/21 01/03/21 01/03/21 17:25 07:56 09:47 WBC 17.7 H RBC 2.19 L Hgb 6.2 L Hct 18.5 L* MCV MCHC RDW 16.1 H Plt Count Lymph % (Auto) Eos % (Auto) Lymph # (Auto) Eos # (Auto) Seg Neutrophils % Seg Neuts % (Manual) Lymphocytes % (Manual) Seg Neutrophils # Seg Neutrophils # Man Lymphocytes # (Manual) Monocytes # (Manual) PT INR APTT Fibrinogen ABG pH POC ABG pCO2 POC ABG pO2 ABG pO2 ABG Base Excess ABG Hemoglobin ABG Oxyhemoglobin ABG Sodium ABG Potassium ABG Chloride ABG Glucose Carboxyhemoglobin Sodium 130 L Potassium 3.5 L Chloride 90.3 L Carbon Dioxide BUN 68 H Creatinine 3.9 H Glucose 103 H POC Glucose 116 H Lactic Acid Calcium 8.0 L Ionized Calcium Phosphorus 4.80 H D Magnesium AST Alkaline Phosphatase C-Reactive Protein Total Protein Albumin Triglycerides Arterial Blood Glucose Arterial Blood Ionized Calcium Urine WBC (Auto) Urine Creatinine Crossmatch 01/03/21 01/03/21 01/04/21 11:00 19:00 03:12 WBC 17.0 H RBC 2.51 L Hgb 7.1 L Hct 21.5 L MCV MCHC RDW 16.6 H Plt Count Lymph % (Auto) Eos % (Auto) Lymph # (Auto) Eos # (Auto) Seg Neutrophils % Seg Neuts % (Manual) Lymphocytes % (Manual) Seg Neutrophils # Seg Neutrophils # Man Lymphocytes # (Manual) Monocytes # (Manual) PT INR APTT Fibrinogen ABG pH 7.463 H POC ABG pCO2 POC ABG pO2 72.2 L ABG pO2 ABG Base Excess ABG Hemoglobin 6.2 L ABG Oxyhemoglobin 91.8 L ABG Sodium 128.4 L ABG Potassium 3.3 L ABG Chloride 96.0 L ABG Glucose 112 H Carboxyhemoglobin Sodium Potassium Chloride Carbon Dioxide BUN Creatinine Glucose POC Glucose Lactic Acid Calcium Ionized Calcium Phosphorus Magnesium AST Alkaline Phosphatase C-Reactive Protein Total Protein Albumin Triglycerides Arterial Blood Glucose 112 H Arterial Blood Ionized Calcium 4.3 L Urine WBC (Auto) Urine Creatinine Crossmatch See Detail 01/04/21 01/04/2101/04/21 05:16 06:20 06:20 WBC 18.5 H RBC 2.53 L Hgb 7.4 L Hct 21.9 L MCV MCHC RDW 15.8 H Plt Count Lymph % (Auto) Eos % (Auto) Lymph # (Auto) Eos # (Auto) Seg Neutrophils % Seg Neuts % (Manual) Lymphocytes % (Manual) Seg Neutrophils # Seg Neutrophils # Man Lymphocytes # (Manual) Monocytes # (Manual) PT INR APTT Fibrinogen ABG pH POC ABG pCO2 POC ABG pO2 ABG pO2 ABG Base Excess ABG Hemoglobin ABG Oxyhemoglobin ABG Sodium ABG Potassium ABG Chloride ABG Glucose Carboxyhemoglobin Sodium 135 L Potassium Chloride 95.2 L Carbon Dioxide BUN 56 H Creatinine 3.2 H Glucose 109 H POC Glucose 123 H Lactic Acid Calcium 7.6 L Ionized Calcium Phosphorus Magnesium AST Alkaline Phosphatase C-Reactive Protein Total Protein Albumin Triglycerides Arterial Blood Glucose Arterial Blood Ionized Calcium Urine WBC (Auto) Urine Creatinine Crossmatch 01/05/21 01/05/21 01/05/21 03:50 07:22 07:22 WBC 23.8 H RBC 2.93 L Hgb 8.2 L Hct 25.1 L MCV MCHC RDW 16.5 H Plt Count Lymph % (Auto) Eos % (Auto) Lymph # (Auto) Eos # (Auto) Seg Neutrophils % Seg Neuts % (Manual) Lymphocytes % (Manual) Seg Neutrophils # Seg Neutrophils # Man Lymphocytes # (Manual) Monocytes # (Manual) PT INR APTT Fibrinogen ABG pH POC ABG pCO2 POC ABG pO2 ABG pO2 136.8 H ABG Base Excess -2.3 L ABG Hemoglobin 6.9 L ABG Oxyhemoglobin ABG Sodium ABG Potassium ABG Chloride ABG Glucose Carboxyhemoglobin Sodium 134 L Potassium Chloride 93.3 L Carbon Dioxide BUN 77 H Creatinine 4.2 H Glucose 105 H POC Glucose Lactic Acid Calcium Ionized Calcium Phosphorus 4.90 H D Magnesium AST Alkaline Phosphatase C-Reactive Protein Total Protein Albumin Triglycerides Arterial Blood Glucose Arterial Blood Ionized Calcium Urine WBC (Auto) Urine Creatinine Crossmatch 01/05/21 01/05/21 01/05/21 11:02 14:06 15:37 WBC RBC Hgb Hct MCV MCHC RDW Plt Count Lymph % (Auto) Eos % (Auto) Lymph # (Auto) Eos # (Auto) Seg Neutrophils % Seg Neuts % (Manual) Lymphocytes % (Manual) Seg Neutrophils # Seg Neutrophils # Man Lymphocytes # (Manual) Monocytes # (Manual) PT INR APTT Fibrinogen ABG pH POC ABG pCO2 POC ABG pO2 332.3 H ABG pO2 ABG Base Excess ABG Hemoglobin 7.7 L ABG Oxyhemoglobin 98.7 H ABG Sodium 131.0 L ABG Potassium 3.3 L ABG Chloride 97.0 L ABG Glucose 118 H Carboxyhemoglobin Sodium Potassium Chloride Carbon Dioxide BUN Creatinine Glucose POC Glucose 118 H 111 H Lactic Acid Calcium Ionized Calcium Phosphorus Magnesium AST Alkaline Phosphatase C-Reactive Protein Total Protein Albumin Triglycerides Arterial Blood Glucose 118 H Arterial Blood Ionized Calcium 4.4 L Urine WBC (Auto) Urine Creatinine Crossmatch 01/05/21 01/06/21 01/06/21 23:18 04:00 04:20 WBC RBC Hgb Hct MCV MCHC RDW Plt Count Lymph % (Auto) Eos % (Auto) Lymph # (Auto) Eos # (Auto) Seg Neutrophils % Seg Neuts % (Manual) Lymphocytes % (Manual) Seg Neutrophils # Seg Neutrophils # Man Lymphocytes # (Manual) Monocytes # (Manual) PT INR APTT Fibrinogen ABG pH POC ABG pCO2 POC ABG pO2 230.5 H ABG pO2 ABG Base Excess ABG Hemoglobin 7.9 L ABG Oxyhemoglobin 98.5 H ABG Sodium 129.4 L ABG Potassium ABG Chloride 97.0 L ABG Glucose 117 H Carboxyhemoglobin Sodium 133 L Potassium Chloride 94.4 L Carbon Dioxide BUN 62 H Creatinine 3.6 H Glucose 110 H POC Glucose 110 H Lactic Acid Calcium 7.8 L Ionized Calcium Phosphorus Magnesium AST Alkaline Phosphatase C-Reactive Protein Total Protein Albumin Triglycerides Arterial Blood Glucose 117 H Arterial Blood Ionized Calcium 4.5 L Urine WBC (Auto) Urine Creatinine Crossmatch 01/06/21 01/06/21 01/06/21 05:28 09:00 11:00 WBC 15.2 H RBC 2.18 L Hgb 6.5 L Hct 21.8 L MCV 100 H MCHC 30 L RDW 18.5 H Plt Count Lymph % (Auto) Eos % (Auto) Lymph # (Auto) Eos # (Auto) Seg Neutrophils % Seg Neuts % (Manual) Lymphocytes % (Manual) Seg Neutrophils # Seg Neutrophils # Man Lymphocytes # (Manual) Monocytes # (Manual) PT INR APTT Fibrinogen ABG pH POC ABG pCO2 POC ABG pO2 ABG pO2 ABG Base Excess ABG Hemoglobin ABG Oxyhemoglobin ABG Sodium ABG Potassium ABG Chloride ABG Glucose Carboxyhemoglobin Sodium Potassium Chloride Carbon Dioxide BUN Creatinine Glucose POC Glucose 109 H Lactic Acid Calcium Ionized Calcium Phosphorus Magnesium AST Alkaline Phosphatase C-Reactive Protein Total Protein Albumin Triglycerides Arterial Blood Glucose Arterial Blood Ionized Calcium Urine WBC (Auto) Urine Creatinine Crossmatch See Detail 01/06/21 01/06/21 01/07/21 11:32 23:44 03:10 WBC 15.3 H RBC 2.30 L Hgb 6.7 L Hct 20.1 L MCV MCHC RDW 16.6 H Plt Count Lymph % (Auto) Eos % (Auto) Lymph # (Auto) Eos # (Auto) Seg Neutrophils % Seg Neuts % (Manual) Lymphocytes % (Manual) Seg Neutrophils # Seg Neutrophils # Man Lymphocytes # (Manual) Monocytes # (Manual) PT INR APTT Fibrinogen ABG pH POC ABG pCO2 POC ABG pO2 ABG pO2 ABG Base Excess ABG Hemoglobin ABG Oxyhemoglobin ABG Sodium ABG Potassium ABG Chloride ABG Glucose Carboxyhemoglobin Sodium Potassium Chloride Carbon Dioxide BUN Creatinine Glucose POC Glucose 113 H 118 H Lactic Acid Calcium Ionized Calcium Phosphorus Magnesium AST Alkaline Phosphatase C-Reactive Protein Total Protein Albumin Triglycerides Arterial Blood Glucose Arterial Blood Ionized Calcium Urine WBC (Auto) Urine Creatinine Crossmatch 01/07/21 01/07/21 01/07/21 03:10 04:17 05:06 WBC RBC Hgb Hct MCV MCHC RDW Plt Count Lymph % (Auto) Eos % (Auto) Lymph # (Auto) Eos # (Auto) Seg Neutrophils % Seg Neuts % (Manual) Lymphocytes % (Manual) Seg Neutrophils # Seg Neutrophils # Man Lymphocytes # (Manual) Monocytes # (Manual) PT INR APTT Fibrinogen ABG pH 7.272 L POC ABG pCO2 50.1 H POC ABG pO2 ABG pO2 ABG Base Excess ABG Hemoglobin 8.4 L ABG Oxyhemoglobin ABG Sodium 128.6 L ABG Potassium ABG Chloride 95.0 L ABG Glucose 109 H Carboxyhemoglobin Sodium 133 L Potassium Chloride 93.6 L Carbon Dioxide BUN 85 H Creatinine 3.9 H Glucose 112 H POC Glucose 106 H Lactic Acid Calcium Ionized Calcium Phosphorus 4.70 H D Magnesium AST Alkaline Phosphatase C-Reactive Protein Total Protein Albumin Triglycerides Arterial Blood Glucose 109 H Arterial Blood Ionized Calcium Urine WBC (Auto) Urine Creatinine Crossmatch 01/07/21 01/07/21 01/07/21 14:05 16:00 23:25 WBC RBC Hgb 8.1 L Hct 24.2 L MCV MCHC RDW Plt Count Lymph % (Auto) Eos % (Auto) Lymph # (Auto) Eos # (Auto) Seg Neutrophils % Seg Neuts % (Manual) Lymphocytes % (Manual) Seg Neutrophils # Seg Neutrophils # Man Lymphocytes # (Manual) Monocytes # (Manual) PT INR APTT Fibrinogen ABG pH POC ABG pCO2 POC ABG pO2 ABG pO2 ABG Base Excess ABG Hemoglobin 7.2 L ABG Oxyhemoglobin ABG Sodium 127.3 L ABG Potassium ABG Chloride 96.0 L ABG Glucose 98 H Carboxyhemoglobin Sodium Potassium Chloride Carbon Dioxide BUN Creatinine Glucose POC Glucose 106 H Lactic Acid Calcium Ionized Calcium Phosphorus Magnesium AST Alkaline Phosphatase C-Reactive Protein Total Protein Albumin Triglycerides Arterial Blood Glucose 98 H Arterial Blood Ionized Calcium Urine WBC (Auto) Urine Creatinine Crossmatch 01/08/21 01/08/21 01/08/21 03:22 05:30 23:22 WBC RBC Hgb Hct MCV MCHC RDW Plt Count Lymph % (Auto) Eos % (Auto) Lymph # (Auto) Eos # (Auto) Seg Neutrophils % Seg Neuts % (Manual) Lymphocytes % (Manual) Seg Neutrophils # Seg Neutrophils # Man Lymphocytes # (Manual) Monocytes # (Manual) PT INR APTT Fibrinogen ABG pH POC ABG pCO2 POC ABG pO2 71.3 L ABG pO2 ABG Base Excess ABG Hemoglobin 8.7 L ABG Oxyhemoglobin 92.2 L ABG Sodium 125.9 L ABG Potassium ABG Chloride 96.0 L ABG Glucose 124 H Carboxyhemoglobin Sodium Potassium Chloride Carbon Dioxide BUN Creatinine Glucose POC Glucose 118 H 110 H Lactic Acid Calcium Ionized Calcium Phosphorus Magnesium AST Alkaline Phosphatase C-Reactive Protein Total Protein Albumin Triglycerides Arterial Blood Glucose 124 H Arterial Blood Ionized Calcium Urine WBC (Auto) Urine Creatinine Crossmatch 01/08/21 01/08/21 01/09/21 Unknown Unknown 08:45 WBC 15.2 H RBC 2.62 L Hgb 7.6 L Hct 22.7 L MCV MCHC RDW 16.7 H Plt Count Lymph % (Auto) Eos % (Auto) Lymph # (Auto) Eos # (Auto) Seg Neutrophils % Seg Neuts % (Manual) 95.0 H Lymphocytes % (Manual) 3.0 L Seg Neutrophils # Seg Neutrophils # Man 14.4 H Lymphocytes # (Manual) 0.5 L Monocytes # (Manual) PT INR APTT Fibrinogen ABG pH POC ABG pCO2 POC ABG pO2 ABG pO2 ABG Base Excess ABG Hemoglobin ABG Oxyhemoglobin ABG Sodium ABG Potassium ABG Chloride ABG Glucose Carboxyhemoglobin Sodium 129 L 129 L Potassium Chloride 91.2 L 92.7 L Carbon Dioxide 21 L 19 L BUN 91 H 105 H Creatinine 4.0 H 4.4 H Glucose 115 H 107 H POC Glucose Lactic Acid Calcium Ionized Calcium Phosphorus 5.00 H Magnesium AST Alkaline Phosphatase C-Reactive Protein Total Protein 5.3 L Albumin 1.6 L Triglycerides 166 H Arterial Blood Glucose Arterial Blood Ionized Calcium Urine WBC (Auto) Urine Creatinine Crossmatch 01/09/21 01/09/21 01/10/21 10:10 23:51 04:00 WBC 14.1 H RBC 2.50 L Hgb 7.2 L Hct 21.6 L MCV MCHC RDW 16.5 H Plt Count Lymph % (Auto) Eos % (Auto) Lymph # (Auto) Eos # (Auto) Seg Neutrophils % Seg Neuts % (Manual) 92.0 H Lymphocytes % (Manual) 2.0 L Seg Neutrophils # Seg Neutrophils # Man 13.0 H Lymphocytes # (Manual) 0.3 L Monocytes # (Manual) PT INR APTT Fibrinogen ABG pH 7.273 L POC ABG pCO2 POC ABG pO2 ABG pO2 ABG Base Excess ABG Hemoglobin 8.7 L ABG Oxyhemoglobin ABG Sodium 126.2 L ABG Potassium 4.8 H ABG Chloride 96.0 L ABG Glucose 160 H Carboxyhemoglobin Sodium Potassium Chloride Carbon Dioxide BUN Creatinine Glucose POC Glucose 154 H Lactic Acid Calcium Ionized Calcium Phosphorus Magnesium AST Alkaline Phosphatase C-Reactive Protein Total Protein Albumin Triglycerides Arterial Blood Glucose 160 H Arterial Blood Ionized Calcium Urine WBC (Auto) Urine Creatinine Crossmatch 01/10/21 01/10/21 01/10/21 04:01 04:01 04:01 WBC 12.6 H RBC 2.89 L Hgb 8.1 L Hct 24.9 L MCV MCHC RDW 16.6 H Plt Count Lymph % (Auto) Eos % (Auto) Lymph # (Auto) Eos # (Auto) Seg Neutrophils % Seg Neuts % (Manual) 95.0 H Lymphocytes % (Manual) 3.0 L Seg Neutrophils # Seg Neutrophils # Man 12.0 H Lymphocytes # (Manual) 0.4 L Monocytes # (Manual) PT 15.4 H INR 1.17 H APTT 40.2 H Fibrinogen 817 H ABG pH POC ABG pCO2 POC ABG pO2 ABG pO2 ABG Base Excess ABG Hemoglobin ABG Oxyhemoglobin ABG Sodium ABG Potassium ABG Chloride ABG Glucose Carboxyhemoglobin Sodium 128 L Potassium Chloride 90.4 L Carbon Dioxide 19 L BUN 113 H Creatinine 4.5 H Glucose 162 H POC Glucose Lactic Acid Calcium Ionized Calcium Phosphorus 5.70 H Magnesium AST Alkaline Phosphatase C-Reactive Protein Total Protein 6.2 L Albumin 2.1 L Triglycerides Arterial Blood Glucose Arterial Blood Ionized Calcium Urine WBC (Auto) Urine Creatinine Crossmatch 01/10/21 01/10/21 01/11/21 05:31 11:45 04:00 WBC RBC Hgb Hct MCV MCHC RDW Plt Count Lymph % (Auto) Eos % (Auto) Lymph # (Auto) Eos # (Auto) Seg Neutrophils % Seg Neuts % (Manual) Lymphocytes % (Manual) Seg Neutrophils # Seg Neutrophils # Man Lymphocytes # (Manual) Monocytes # (Manual) PT INR APTT Fibrinogen ABG pH 7.311 L POC ABG pCO2 49.2 H POC ABG pO2 ABG pO2 ABG Base Excess ABG Hemoglobin 9.4 L ABG Oxyhemoglobin ABG Sodium 130.3 L ABG Potassium ABG Chloride 96.0 L ABG Glucose 104 H Carboxyhemoglobin Sodium Potassium Chloride Carbon Dioxide BUN Creatinine Glucose POC Glucose 150 H 145 H Lactic Acid Calcium Ionized Calcium Phosphorus Magnesium AST Alkaline Phosphatase C-Reactive Protein Total Protein Albumin Triglycerides Arterial Blood Glucose 104 H Arterial Blood Ionized Calcium Urine WBC (Auto) Urine Creatinine Crossmatch 01/11/21 01/11/21 01/12/21 04:45 17:29 05:51 WBC RBC Hgb Hct MCV MCHC RDW Plt Count Lymph % (Auto) Eos % (Auto) Lymph # (Auto) Eos # (Auto) Seg Neutrophils % Seg Neuts % (Manual) Lymphocytes % (Manual) Seg Neutrophils # Seg Neutrophils # Man Lymphocytes # (Manual) Monocytes # (Manual) PT INR APTT Fibrinogen ABG pH POC ABG pCO2 POC ABG pO2 ABG pO2 ABG Base Excess ABG Hemoglobin ABG Oxyhemoglobin ABG Sodium ABG Potassium ABG Chloride ABG Glucose Carboxyhemoglobin Sodium 134 L Potassium 3.5 L D Chloride 95.5 L Carbon Dioxide BUN 88 H Creatinine 3.5 H Glucose 103 H POC Glucose 109 H 114 H Lactic Acid Calcium Ionized Calcium Phosphorus Magnesium AST Alkaline Phosphatase C-Reactive Protein Total Protein Albumin Triglycerides Arterial Blood Glucose Arterial Blood Ionized Calcium Urine WBC (Auto) Urine Creatinine Crossmatch 01/12/21 01/12/21 01/12/21 10:00 10:00 11:56 WBC RBC Hgb Hct MCV MCHC RDW Plt Count Lymph % (Auto) Eos % (Auto) Lymph # (Auto) Eos # (Auto) Seg Neutrophils % Seg Neuts % (Manual) Lymphocytes % (Manual) Seg Neutrophils # Seg Neutrophils # Man Lymphocytes # (Manual) Monocytes # (Manual) PT INR APTT Fibrinogen ABG pH POC ABG pCO2 POC ABG pO2 ABG pO2 ABG Base Excess ABG Hemoglobin ABG Oxyhemoglobin ABG Sodium ABG Potassium ABG Chloride ABG Glucose Carboxyhemoglobin Sodium 136 L Potassium Chloride 95.2 L Carbon Dioxide BUN 102 H Creatinine 3.6 H Glucose 106 H POC Glucose 113 H Lactic Acid Calcium Ionized Calcium Phosphorus 4.90 H Magnesium AST Alkaline Phosphatase C-Reactive Protein Total Protein Albumin Triglycerides 153 H Arterial Blood Glucose Arterial Blood Ionized Calcium Urine WBC (Auto) Urine Creatinine Crossmatch 01/12/21 01/12/21 01/13/21 17:43 23:31 03:14 WBC RBC Hgb Hct MCV MCHC RDW Plt Count Lymph % (Auto) Eos % (Auto) Lymph # (Auto) Eos # (Auto) Seg Neutrophils % Seg Neuts % (Manual) Lymphocytes % (Manual) Seg Neutrophils # Seg Neutrophils # Man Lymphocytes # (Manual) Monocytes # (Manual) PT INR APTT Fibrinogen ABG pH 7.484 H POC ABG pCO2 POC ABG pO2 ABG pO2 ABG Base Excess ABG Hemoglobin 8.4 L ABG Oxyhemoglobin ABG Sodium 134.4 L ABG Potassium 3.1 L ABG Chloride ABG Glucose 117 H Carboxyhemoglobin Sodium Potassium Chloride Carbon Dioxide BUN Creatinine Glucose POC Glucose 113 H 108 H Lactic Acid Calcium Ionized Calcium Phosphorus Magnesium AST Alkaline Phosphatase C-Reactive Protein Total Protein Albumin Triglycerides Arterial Blood Glucose 117 H Arterial Blood Ionized Calcium 4.5 L Urine WBC (Auto) Urine Creatinine Crossmatch 01/13/21 01/13/21 01/13/21 04:56 05:00 05:00 WBC RBC 2.87 L Hgb 8.0 L Hct 24.4 L MCV MCHC RDW 17.2 H Plt Count Lymph % (Auto) Eos % (Auto) Lymph # (Auto) Eos # (Auto) Seg Neutrophils % Seg Neuts % (Manual) Lymphocytes % (Manual) Seg Neutrophils # Seg Neutrophils # Man Lymphocytes # (Manual) Monocytes # (Manual) PT INR APTT Fibrinogen ABG pH POC ABG pCO2 POC ABG pO2 ABG pO2 ABG Base Excess ABG Hemoglobin ABG Oxyhemoglobin ABG Sodium ABG Potassium ABG Chloride ABG Glucose Carboxyhemoglobin Sodium Potassium 3.0 L Chloride 97.6 L Carbon Dioxide BUN 69 H Creatinine 2.9 H Glucose 114 H POC Glucose 110 H Lactic Acid Calcium 8.0 L Ionized Calcium Phosphorus Magnesium AST Alkaline Phosphatase C-Reactive Protein Total Protein Albumin Triglycerides Arterial Blood Glucose Arterial Blood Ionized Calcium Urine WBC (Auto) Urine Creatinine Crossmatch 01/13/21 01/14/21 01/14/21 12:09 05:00 05:00 WBC 12.4 H RBC 2.72 L Hgb 7.7 L Hct 23.3 L MCV MCHC RDW 17.3 H Plt Count Lymph % (Auto) 6.5 L Eos % (Auto) 7.7 H Lymph # (Auto) 0.8 L Eos # (Auto) 1.0 H Seg Neutrophils % 82.7 H Seg Neuts % (Manual) Lymphocytes % (Manual) Seg Neutrophils # 10.2 H Seg Neutrophils # Man Lymphocytes # (Manual) Monocytes # (Manual) PT INR APTT Fibrinogen ABG pH POC ABG pCO2 POC ABG pO2 ABG pO2 ABG Base Excess ABG Hemoglobin ABG Oxyhemoglobin ABG Sodium ABG Potassium ABG Chloride ABG Glucose Carboxyhemoglobin Sodium Potassium 3.2 L Chloride Carbon Dioxide BUN 79 H Creatinine 3.1 H Glucose POC Glucose 111 H Lactic Acid Calcium Ionized Calcium Phosphorus Magnesium AST Alkaline Phosphatase C-Reactive Protein Total Protein Albumin Triglycerides Arterial Blood Glucose Arterial Blood Ionized Calcium Urine WBC (Auto) Urine Creatinine Crossmatch 01/16/21 01/16/21 01/16/21 04:30 04:30 16:00 WBC RBC 2.62 L Hgb 7.6 L Hct 22.6 L MCV MCHC RDW 17.3 H Plt Count Lymph % (Auto) Eos % (Auto) Lymph # (Auto) Eos # (Auto) Seg Neutrophils % Seg Neuts % (Manual) Lymphocytes % (Manual) Seg Neutrophils # Seg Neutrophils # Man Lymphocytes # (Manual) Monocytes # (Manual) PT INR APTT Fibrinogen ABG pH POC ABG pCO2 POC ABG pO2 ABG pO2 ABG Base Excess ABG Hemoglobin ABG Oxyhemoglobin ABG Sodium ABG Potassium ABG Chloride ABG Glucose Carboxyhemoglobin Sodium 146 H Potassium 2.9 L* 3.0 L Chloride Carbon Dioxide BUN 58 H Creatinine 2.4 H Glucose 101 H POC Glucose Lactic Acid Calcium Ionized Calcium Phosphorus Magnesium AST Alkaline Phosphatase C-Reactive Protein Total Protein Albumin 2.1 L Triglycerides Arterial Blood Glucose Arterial Blood Ionized Calcium Urine WBC (Auto) Urine Creatinine Crossmatch 01/16/21 01/17/21 01/17/21 Unknown 04:30 04:30 WBC RBC 2.80 L Hgb 7.9 L Hct 24.1 L MCV MCHC RDW 17.1 H Plt Count Lymph % (Auto) Eos % (Auto) Lymph # (Auto) Eos # (Auto) Seg Neutrophils % Seg Neuts % (Manual) Lymphocytes % (Manual) Seg Neutrophils # Seg Neutrophils # Man Lymphocytes # (Manual) Monocytes # (Manual) PT INR APTT Fibrinogen ABG pH POC ABG pCO2 POC ABG pO2 ABG pO2 ABG Base Excess ABG Hemoglobin ABG Oxyhemoglobin ABG Sodium ABG Potassium ABG Chloride ABG Glucose Carboxyhemoglobin Sodium 151 H Potassium 2.8 L* Chloride 108.0 H Carbon Dioxide BUN 58 H Creatinine 2.2 H Glucose 103 H POC Glucose Lactic Acid Calcium 8.0 L Ionized Calcium Phosphorus Magnesium 1.40 L AST Alkaline Phosphatase C-Reactive Protein Total Protein Albumin Triglycerides 216 H Arterial Blood Glucose Arterial Blood Ionized Calcium Urine WBC (Auto) > 182.0 H Urine Creatinine Crossmatch 01/17/21 01/17/21 01/18/21 11:24 23:00 04:15 WBC RBC Hgb Hct MCV MCHC RDW Plt Count Lymph % (Auto) Eos % (Auto) Lymph # (Auto) Eos # (Auto) Seg Neutrophils % Seg Neuts % (Manual) Lymphocytes % (Manual) Seg Neutrophils # Seg Neutrophils # Man Lymphocytes # (Manual) Monocytes # (Manual) PT INR APTT Fibrinogen ABG pH POC ABG pCO2 POC ABG pO2 ABG pO2 ABG Base Excess ABG Hemoglobin ABG Oxyhemoglobin ABG Sodium ABG Potassium ABG Chloride ABG Glucose Carboxyhemoglobin Sodium 153 H Potassium 3.3 L 3.3 L Chloride 113.1 H Carbon Dioxide BUN 55 H Creatinine 1.9 H Glucose POC Glucose 110 H Lactic Acid Calcium 7.4 L Ionized Calcium Phosphorus Magnesium AST Alkaline Phosphatase C-Reactive Protein Total Protein Albumin Triglycerides Arterial Blood Glucose Arterial Blood Ionized Calcium Urine WBC (Auto) Urine Creatinine Crossmatch 01/18/21 01/18/21 01/19/21 10:37 21:00 05:00 WBC RBC 2.64 L Hgb 7.8 L Hct 22.7 L MCV MCHC RDW 16.8 H Plt Count Lymph % (Auto) Eos % (Auto) Lymph # (Auto) Eos # (Auto) Seg Neutrophils % Seg Neuts % (Manual) Lymphocytes % (Manual) Seg Neutrophils # Seg Neutrophils # Man Lymphocytes # (Manual) Monocytes # (Manual) PT INR APTT Fibrinogen ABG pH 7.512 H POC ABG pCO2 POC ABG pO2 47.8 L ABG pO2 ABG Base Excess ABG Hemoglobin 8.9 L ABG Oxyhemoglobin 83.3 L ABG Sodium 151.5 H ABG Potassium 2.9 L ABG Chloride 117.0 H ABG Glucose 111 H Carboxyhemoglobin Sodium Potassium 3.4 L Chloride Carbon Dioxide BUN Creatinine Glucose POC Glucose Lactic Acid Calcium Ionized Calcium Phosphorus Magnesium AST Alkaline Phosphatase C-Reactive Protein Total Protein Albumin Triglycerides Arterial Blood Glucose 111 H Arterial Blood Ionized Calcium 4.3 L Urine WBC (Auto) Urine Creatinine Crossmatch 01/19/21 01/19/21 01/20/21 07:39 07:39 07:25 WBC RBC 2.82 L Hgb 8.2 L Hct 24.6 L MCV MCHC RDW 16.8 H Plt Count Lymph % (Auto) Eos % (Auto) Lymph # (Auto) Eos # (Auto) Seg Neutrophils % Seg Neuts % (Manual) Lymphocytes % (Manual) Seg Neutrophils # Seg Neutrophils # Man Lymphocytes # (Manual) Monocytes # (Manual) PT INR APTT Fibrinogen ABG pH POC ABG pCO2 POC ABG pO2 ABG pO2 ABG Base Excess ABG Hemoglobin ABG Oxyhemoglobin ABG Sodium ABG Potassium ABG Chloride ABG Glucose Carboxyhemoglobin Sodium 156 H Potassium 3.2 L Chloride 115.4 H Carbon Dioxide BUN 50 H Creatinine 1.6 H Glucose 108 H POC Glucose Lactic Acid Calcium 8.1 L Ionized Calcium Phosphorus Magnesium 1.50 L AST Alkaline Phosphatase C-Reactive Protein Total Protein Albumin Triglycerides Arterial Blood Glucose Arterial Blood Ionized Calcium Urine WBC (Auto) 30.0 H Urine Creatinine Crossmatch 01/20/21 01/20/21 01/20/21 07:25 07:25 23:20 WBC RBC 2.94 L Hgb 8.4 L Hct 25.9 L MCV MCHC RDW 17.2 H Plt Count Lymph % (Auto) Eos % (Auto) Lymph # (Auto) Eos # (Auto) Seg Neutrophils % Seg Neuts % (Manual) Lymphocytes % (Manual) Seg Neutrophils # Seg Neutrophils # Man Lymphocytes # (Manual) Monocytes # (Manual) PT INR APTT Fibrinogen ABG pH POC ABG pCO2 POC ABG pO2 ABG pO2 ABG Base Excess ABG Hemoglobin ABG Oxyhemoglobin ABG Sodium ABG Potassium ABG Chloride ABG Glucose Carboxyhemoglobin Sodium 149 H Potassium Chloride 113.8 H Carbon Dioxide BUN 44 H Creatinine Glucose 108 H POC Glucose 106 H Lactic Acid Calcium Ionized Calcium Phosphorus Magnesium AST Alkaline Phosphatase C-Reactive Protein Total Protein Albumin Triglycerides Arterial Blood Glucose Arterial Blood Ionized Calcium Urine WBC (Auto) Urine Creatinine Crossmatch 01/21/21 01/21/21 01/22/21 08:20 17:41 05:38 WBC RBC Hgb Hct MCV MCHC RDW Plt Count Lymph % (Auto) Eos % (Auto) Lymph # (Auto) Eos # (Auto) Seg Neutrophils % Seg Neuts % (Manual) Lymphocytes % (Manual) Seg Neutrophils # Seg Neutrophils # Man Lymphocytes # (Manual) Monocytes # (Manual) PT INR APTT Fibrinogen ABG pH POC ABG pCO2 POC ABG pO2 ABG pO2 ABG Base Excess ABG Hemoglobin ABG Oxyhemoglobin ABG Sodium ABG Potassium ABG Chloride ABG Glucose Carboxyhemoglobin Sodium 153 H Potassium Chloride 118.2 H Carbon Dioxide BUN 47 H Creatinine Glucose 105 H POC Glucose 115 H 111 H Lactic Acid Calcium 8.3 L Ionized Calcium Phosphorus Magnesium AST Alkaline Phosphatase C-Reactive Protein Total Protein Albumin Triglycerides Arterial Blood Glucose Arterial Blood Ionized Calcium Urine WBC (Auto) Urine Creatinine Crossmatch 01/22/21 01/22/21 01/22/21 10:08 10:08 11:57 WBC RBC 3.11 L Hgb 8.9 L Hct 27.5 L MCV MCHC RDW 16.9 H Plt Count Lymph % (Auto) Eos % (Auto) Lymph # (Auto) Eos # (Auto) Seg Neutrophils % Seg Neuts % (Manual) Lymphocytes % (Manual) Seg Neutrophils # Seg Neutrophils # Man Lymphocytes # (Manual) Monocytes # (Manual) PT INR APTT Fibrinogen ABG pH POC ABG pCO2 POC ABG pO2 ABG pO2 ABG Base Excess ABG Hemoglobin ABG Oxyhemoglobin ABG Sodium ABG Potassium ABG Chloride ABG Glucose Carboxyhemoglobin Sodium 153 H Potassium Chloride 119.5 H Carbon Dioxide BUN 42 H Creatinine Glucose 111 H POC Glucose 112 H Lactic Acid Calcium 7.8 L Ionized Calcium Phosphorus Magnesium AST Alkaline Phosphatase C-Reactive Protein Total Protein Albumin Triglycerides Arterial Blood Glucose Arterial Blood Ionized Calcium Urine WBC (Auto) Urine Creatinine Crossmatch 01/22/21 01/22/21 01/23/21 17:05 23:35 05:45 WBC RBC Hgb Hct MCV MCHC RDW Plt Count Lymph % (Auto) Eos % (Auto) Lymph # (Auto) Eos # (Auto) Seg Neutrophils % Seg Neuts % (Manual) Lymphocytes % (Manual) Seg Neutrophils # Seg Neutrophils # Man Lymphocytes # (Manual) Monocytes # (Manual) PT INR APTT Fibrinogen ABG pH POC ABG pCO2 POC ABG pO2 ABG pO2 ABG Base Excess ABG Hemoglobin ABG Oxyhemoglobin ABG Sodium ABG Potassium ABG Chloride ABG Glucose Carboxyhemoglobin Sodium Potassium Chloride Carbon Dioxide BUN Creatinine Glucose POC Glucose 107 H 109 H Lactic Acid Calcium Ionized Calcium Phosphorus Magnesium AST Alkaline Phosphatase C-Reactive Protein 4.00 H Total Protein Albumin Triglycerides Arterial Blood Glucose Arterial Blood Ionized Calcium Urine WBC (Auto) Urine Creatinine Crossmatch 01/23/21 01/23/21 01/23/21 09:29 12:02 23:58 WBC RBC Hgb Hct MCV MCHC RDW Plt Count Lymph % (Auto) Eos % (Auto) Lymph # (Auto) Eos # (Auto) Seg Neutrophils % Seg Neuts % (Manual) Lymphocytes % (Manual) Seg Neutrophils # Seg Neutrophils # Man Lymphocytes # (Manual) Monocytes # (Manual) PT INR APTT Fibrinogen ABG pH POC ABG pCO2 POC ABG pO2 ABG pO2 ABG Base Excess ABG Hemoglobin ABG Oxyhemoglobin ABG Sodium ABG Potassium ABG Chloride ABG Glucose Carboxyhemoglobin Sodium 154 H Potassium Chloride 117.6 H Carbon Dioxide BUN 41 H Creatinine Glucose 122 H POC Glucose 113 H 114 H Lactic Acid Calcium Ionized Calcium Phosphorus Magnesium AST Alkaline Phosphatase C-Reactive Protein Total Protein Albumin Triglycerides Arterial Blood Glucose Arterial Blood Ionized Calcium Urine WBC (Auto) Urine Creatinine Crossmatch 01/24/21 08:42 WBC RBC Hgb Hct MCV MCHC RDW Plt Count Lymph % (Auto) Eos % (Auto) Lymph # (Auto) Eos # (Auto) Seg Neutrophils % Seg Neuts % (Manual) Lymphocytes % (Manual) Seg Neutrophils # Seg Neutrophils # Man Lymphocytes # (Manual) Monocytes # (Manual) PT INR APTT Fibrinogen ABG pH POC ABG pCO2 POC ABG pO2 ABG pO2 ABG Base Excess ABG Hemoglobin ABG Oxyhemoglobin ABG Sodium ABG Potassium ABG Chloride ABG Glucose Carboxyhemoglobin Sodium 152 H Potassium Chloride 115.3 H Carbon Dioxide BUN 37 H Creatinine Glucose 123 H POC Glucose Lactic Acid Calcium Ionized Calcium Phosphorus Magnesium AST Alkaline Phosphatase C-Reactive Protein Total Protein Albumin Triglycerides Arterial Blood Glucose Arterial Blood Ionized Calcium Urine WBC (Auto) Urine Creatinine Crossmatch
[2021-01-24 11:25] VITALS: BP 105/61
== END 2021-01-24 12:00 | DRG 853 ==
LOC: ED 13:10 → IMCU 16:42 → CC1 17:31
PROVIDERS: ADMIT Internal Medicine; ATTEND Hospitalist
PROC: 0WJF0ZZ Inspection of Abdominal Wall, Open Approach (ICD-10-PCS; principal; 2020-12-20)
PROC: 0DNB0ZZ Release Ileum, Open Approach (ICD-10-PCS; 2020-12-20)
PROC: 0DNA0ZZ Release Jejunum, Open Approach (ICD-10-PCS; 2020-12-20)
PROC: 5A1955Z Respiratory Ventilation, Greater than 96 Consecutive Hours (ICD-10-PCS; 2020-12-20)
PROC: 0DB80ZZ Excision of Small Intestine, Open Approach (ICD-10-PCS; 2020-12-20)
PROC: 0DNU0ZZ Release Omentum, Open Approach (ICD-10-PCS; 2020-12-20)
PROC: 3E1M38Z Irrigation of Peritoneal Cavity using Irrigating Substance, Percutaneous Approach (ICD-10-PCS; 2020-12-20)
PROC: 02HV33Z Insertion of Infusion Device into Superior Vena Cava, Percutaneous Approach (ICD-10-PCS; 2020-12-21)
PROC: 0D9670Z Drainage of Stomach with Drainage Device, Via Natural or Artificial Opening (ICD-10-PCS; 2020-12-21)
PROC: 4A033R1 Measurement of Arterial Saturation, Peripheral, Percutaneous Approach (ICD-10-PCS; 2020-12-21)
PROC: 0DB80ZZ Excision of Small Intestine, Open Approach (ICD-10-PCS; 2020-12-23)
PROC: 3E1M38Z Irrigation of Peritoneal Cavity using Irrigating Substance, Percutaneous Approach (ICD-10-PCS; 2020-12-23)
PROC: 03HY32Z Insertion of Monitoring Device into Upper Artery, Percutaneous Approach (ICD-10-PCS; 2020-12-23)
PROC: 4A133B1 Monitoring of Arterial Pressure, Peripheral, Percutaneous Approach (ICD-10-PCS; 2020-12-23)
PROC: 4A133J1 Monitoring of Arterial Pulse, Peripheral, Percutaneous Approach (ICD-10-PCS; 2020-12-23)
PROC: 0DB80ZZ Excision of Small Intestine, Open Approach (ICD-10-PCS; 2020-12-26)
PROC: 06HN33Z Insertion of Infusion Device into Left Femoral Vein, Percutaneous Approach (ICD-10-PCS; 2020-12-28)
PROC: 0BH18EZ Insertion of Endotracheal Airway into Trachea, Via Natural or Artificial Opening Endoscopic (ICD-10-PCS; 2020-12-28)
PROC: B54CZZZ Ultrasonography of Left Lower Extremity Veins (ICD-10-PCS; 2020-12-28)
PROC: 0DB80ZZ Excision of Small Intestine, Open Approach (ICD-10-PCS; 2020-12-29)
PROC: 5A1D70Z Performance of Urinary Filtration, Intermittent, Less than 6 Hours Per Day (ICD-10-PCS; 2020-12-30)
PROC: 5A1D70Z Performance of Urinary Filtration, Intermittent, Less than 6 Hours Per Day (ICD-10-PCS; 2020-12-31)
PROC: 0WUF0JZ Supplement Abdominal Wall with Synthetic Substitute, Open Approach (ICD-10-PCS; 2021-01-01)
PROC: 5A1D70Z Performance of Urinary Filtration, Intermittent, Less than 6 Hours Per Day (ICD-10-PCS; 2021-01-01)
PROC: 5A1D70Z Performance of Urinary Filtration, Intermittent, Less than 6 Hours Per Day (ICD-10-PCS; 2021-01-02)
PROC: 5A1D70Z Performance of Urinary Filtration, Intermittent, Less than 6 Hours Per Day (ICD-10-PCS; 2021-01-03)
PROC: 5A1D70Z Performance of Urinary Filtration, Intermittent, Less than 6 Hours Per Day (ICD-10-PCS; 2021-01-05)
PROC: 5A1D70Z Performance of Urinary Filtration, Intermittent, Less than 6 Hours Per Day (ICD-10-PCS; 2021-01-07)
PROC: 30233N1 Transfusion of Nonautologous Red Blood Cells into Peripheral Vein, Percutaneous Approach (ICD-10-PCS; 2021-01-07)
PROC: 5A1D70Z Performance of Urinary Filtration, Intermittent, Less than 6 Hours Per Day (ICD-10-PCS; 2021-01-10)
PROC: 5A1D70Z Performance of Urinary Filtration, Intermittent, Less than 6 Hours Per Day (ICD-10-PCS; 2021-01-12)
PROC: 02HV33Z Insertion of Infusion Device into Superior Vena Cava, Percutaneous Approach (ICD-10-PCS; 2021-01-13)
PROC: 5A1D70Z Performance of Urinary Filtration, Intermittent, Less than 6 Hours Per Day (ICD-10-PCS; 2021-01-14)
DX: A41.9 Sepsis, unspecified organism (principal); K65.0 Generalized (acute) peritonitis; R65.21 Severe sepsis with septic shock; J96.90 Respiratory failure, unspecified, unspecified whether with hypoxia or hypercapnia; N17.0 Acute kidney failure with tubular necrosis; B46.5 Mucormycosis, unspecified; K43.6 Other and unspecified ventral hernia with obstruction, without gangrene; K56.609 Unspecified intestinal obstruction, unspecified as to partial versus complete obstruction; E87.1 Hypo-osmolality and hyponatremia; E87.0 Hyperosmolality and hypernatremia; Z20.822 Contact with and (suspected) exposure to COVID-19; K21.9 Gastro-esophageal reflux disease without esophagitis; E87.8 Other disorders of electrolyte and fluid balance, not elsewhere classified; K43.9 Ventral hernia without obstruction or gangrene; E66.01 Morbid (severe) obesity due to excess calories; Z68.36 Body mass index [BMI] 36.0-36.9, adult; Z71.3 Dietary counseling and surveillance; I10 Essential (primary) hypertension; E78.5 Hyperlipidemia, unspecified; M19.90 Unspecified osteoarthritis, unspecified site; E83.51 Hypocalcemia; E87.5 Hyperkalemia; D64.9 Anemia, unspecified; E83.39 Other disorders of phosphorus metabolism; Z87.891 Personal history of nicotine dependence; Z79.899 Other long term (current) drug therapy; Z91.041 Radiographic dye allergy status; Z82.49 Family history of ischemic heart disease and other diseases of the circulatory system; Z79.82 Long term (current) use of aspirin
CPT/HCPCS: 36415; 36600; 71045; 71260; 74018; 74176; 74177; 80048; 80053; 80074; 80202; 81001; 82140; 82270; 82330; 82565; 82570; 82803; 82805; 82962; 83735; 84100; 84132; 84145; 84295; 84300; 84478; 84484; 85007; 85014; 85018; 85025; 85027; 85384; 85610; 85730; 86140; 86850; 86900; 86901; 86920; 87040; 87070; 87075; 87076; 87086; 87116; 87186; 87205; 88302; 88307; 89050; 93005; 93975; 94002; 94003; 96374; 96375; 96376; G0378; C1781; J0330; J0360; J0610; J0692; J1170; J1200; J1450; J1644; J1720; J1815; J2185; J2405; J2543; J2704; J2765; J2920; J2997; J3010; J3370; J3475; J3480; J3490; J7030; J7040; J7050; J7070; J7120; P9016; Q9967; U0003